=== PATIENT | female | born 1950 | race Two or more races ===

== ENCOUNTER 2018-01-20 13:09 | Emergency (ER) | payer OTHER ==
[2018-01-20] MEDS ORDERED: Morphine 2 MG/2 ML SYR ONE ×2 (16:09→17:40)
--- NOTE | 2018-01-20 16:15 | RAD REPORT ---
EXAM DESCRIPTION: CT - Head Brain Wo Cont - 01/20/2018 4:03 pm CLINICAL HISTORY: Headache COMPARISON: 01/04/2018 TECHNIQUE: All CT scans are performed using dose optimization technique as appropriate and may inclu de automated exposure control or mA/KV adjustment according to patient size. FINDINGS: No intracranial hemorrhage, hydrocephalus or extra-axial fluid collection.Mild generalized brain atrophy noted.No areas of brain edema or evidence of midline shift. The paranasal sinuses and mastoids are clear. The calvarium is intact. IMPRESSION: No acute intracranial abnormality.
--- NOTE | 2018-01-20 18:20 | ER ---
Nurse's Notes [facility] Name: Alberto Botello Age: 67 yrs Sex: Female : 1950 Arrival Date: 01/20/2018 Time: 13:11 Bed 13 Private MD: Alis Jamison H Diagnosis: Headache Presentation: 01/20 13:22 Presenting complaint: Patient states: Headache that radiates into back for 1 week. Seen aj by PCP for same complaint, given "shot that didn't help." Denies numbness or tingling, ambulated to triage with use of cane. Transition of care: patient was not received from another setting of care. Onset of symptoms was January 12, 2018. Initial Sepsis Screen: Does the patient meet any 2 criteria? No. Patient's initial sepsis screen is negative. Does the patient have a suspected source of infection? No. Patient's initial sepsis screen is negative. Care prior to arrival: None. 13:22 Method Of Arrival: Ambulatory aj 13:22 Acuity: ART 3 aj Triage Assessment: 13:26 Headache History: The patient has had previous headaches. General: Appears in no aj apparent distress. uncomfortable, Behavior is calm, cooperative, appropriate for age. Pain: Complains of pain in face, scalp and back. Neuro: Level of Consciousness is awake, alert, obeys commands, Oriented to person, place, time, situation, Appropriate for age Reports headache. Neuro: Pin Game Machine Inspector are equal bilaterally Moves all extremities. Full function Gait is unsteady, Speech is normal, Facial symmetry appears normal. Respiratory: Airway is patent Trachea midline Respiratory effort is even, unlabored, Respiratory pattern is regular, symmetrical. Derm: Skin is intact, is healthy with good turgor, Skin is pink, warm \\T\\ dry. normal. Historical: - Allergies: 13:26 No Known Allergies; aj - Home Meds: 13:26 lisinopril 10 mg Oral tab 1 tab once daily [Active]; metformin 850 mg Oral tab daily aj [Active]; alprazolam 2 mg Oral tab nightly [Active]; morphine 30 mg Oral CM24 1 cap three times a day [Active]; Meclizine Oral [Active]; tizanidine oral oral [Active]; meloxicam oral oral [Active]; - PMHx: 13:26 Chronic pain; Hepatitis; Hypertension; Osteoporosis; Pancreatitis; aj - PSHx: 13:26 None; aj - Immunization history:: Adult Immunizations up to date. - Social history:: Smoking status: Patient/guardian denies using tobacco. Screenin:15 Abuse screen: Denies threats or abuse. Denies injuries from another. Nutritional ph screening: No deficits noted. Tuberculosis screening: No symptoms or risk factors identified. Fall Risk None identified. Assessment: 15:45 General: Appears in no apparent distress. uncomfortable, well groomed, Behavior is ph calm, cooperative, appropriate for age, Denies fever, feeling ill. Pain: Complains of pain in top of head Pain radiates to back. Neuro: Level of Consciousness is awake, alert, obeys commands, Oriented to person, place, time, situation, Reports headache Denies blurred vision dizziness. Cardiovascular: Capillary refill < 3 seconds Patient's skin is warm and dry. Respiratory: Airway is compromised Respiratory effort is even, unlabored. GI: Patient currently denies nausea, vomiting. Derm: Skin is intact, is healthy with good turgor, Skin is pink, warm \\T\\ dry. Musculoskeletal: Circulation, motion, and sensation intact. Range of motion: intact in all extremities. 17:30 Reassessment: Patient appears in no apparent distress at this time. Patient and/or ph family updated on plan of care and expected duration. Pain level reassessed. Patient is alert, oriented x 3, equal unlabored respirations, skin warm/dry/pink. Pt reports that pain has improved to 7/10 (down from 10/10) requesting more pain medication, ERP notified. 18:28 Reassessment: Patient appears in no apparent distress at this time. Patient and/or ph family updated on plan of care and expected duration. Pain level reassessed. Patient is alert, oriented x 3, equal unlabored respirations, skin warm/dry/pink. Pt reports that pain has decreased, d/c home w/ family. Vital Signs: 13:26 BP 165 / 93; Pulse 90; Resp 17; Temp 98.4; Pulse Ox 100% on R/A; Weight 53.52 kg; aj Height 5 ft. 0 in. (152.40 cm); 17:26 BP 132 / 80; Pulse 83; Resp 16; Pulse Ox 100% on R/A; mh5 18:30 BP 127 / 78; Pulse 81; Resp 18; Temp 97.8; Pulse Ox 99% on R/A; ph 13:26 Body Mass Index 23.05 (53.52 kg, 152.40 cm) ED Course: 13:11 Patient arrived in ED. mr 13:12 Alis JamisonDO is Private Physician. mr 13:24 Triage completed. 13:26 Arm band placed on right wrist. Patient placed in waiting room, Patient notified of wait time. 15:03 Macario Guevara, LONG is PHCP. pm1 15:03 Rob Galo MD is Attending Physician. pm1 15:54 CT completed. Patient tolerated procedure well. Patient moved to CT via stretcher. luigi Patient moved back from CT. 16:03 CT Head Brain wo Cont In Process Unspecified. EDMS 16:04 Alia Maldonado RN is Primary Nurse. ph 16:15 Patient has correct armband on for positive identification. Placed in gown. Bed in low ph position. Call light in reach. Side rails up X 1. Pulse ox on. NIBP on. Warm blanket given. 18:31 No provider procedures requiring assistance completed. Patient did not have IV access ph during this emergency room visit. Administered Medications: 16:12 Drug: morphine 2 mg Route: IM; Site: right deltoid; ph 18:34 Follow up: Response: No adverse reaction; Pain is decreased ph 17:40 Drug: morphine 2 mg Route: IM; Site: left deltoid; ph 18:34 Follow up: Response: No adverse reaction; Pain is decreased ph Outcome: 17:59 Discharge ordered by MD. pm1 18:31 Discharged to home ambulatory, with family. ph 18:31 Condition: good 18:31 Condition: good 18:31 Discharge instructions given to patient, family, Instructed on discharge instructions, follow up and referral plans. Demonstrated understanding of instructions, follow-up care. 18:35 Patient left the ED. ph Signatures: Dispatcher [employer] EDMS Ami Hutson, Jazmin Galvez RN mr Alia Maldonado RN RN Macario Guevara, LONG HOME MANAGER pm1 Ba Rivera Maria [facility]
--- NOTE | 2018-01-20 18:20 | EDPHYS ---
Physician Documentation [facility] Name: Alberto Botello Age: 67 yrs Sex: Female : 1950 Arrival Date: 01/20/2018 Time: 13:11 Bed 13 Private MD: Alis Jamison H ED Physician Rob Galo HPI: 01/20 15:57 This 67 yrs old Female presents to ER via Ambulatory with complaints of Headache. pm1 15:57 The patient complains of pain to the top of head. The patient describes the headache as pm1 aching, constant. Onset: The symptoms/episode began/occurred 3 day(s) ago. Associated signs and symptoms: Pertinent negatives: dizziness, fever, nausea, neck stiffness, Photophobia vision changes, vision loss, vomiting, weakness. Severity of symptoms: in the emergency department the pain is unchanged. Headache History: The patient has had previous headaches and this one is similar to previous episodes. The symptoms are alleviated by nothing. the symptoms are aggravated by nothing. The patient has experienced similar episodes in the past, a few times. Seen by pain management physician 2 days ago and given a pain medication shot that has not helped her pain. Historical: - Allergies: 13:26 No Known Allergies; aj - Home Meds: 13:26 lisinopril 10 mg Oral tab 1 tab once daily [Active]; metformin 850 mg Oral tab daily aj [Active]; alprazolam 2 mg Oral tab nightly [Active]; morphine 30 mg Oral CM24 1 cap three times a day [Active]; Meclizine Oral [Active]; tizanidine oral oral [Active]; meloxicam oral oral [Active]; - PMHx: 13:26 Chronic pain; Hepatitis; Hypertension; Osteoporosis; Pancreatitis; aj - PSHx: 13:26 None; aj - Immunization history:: Adult Immunizations up to date. - Social history:: Smoking status: Patient/guardian denies using tobacco. ROS: 16:00 Constitutional: Negative for fever, chills, and weight loss, Eyes: Negative for injury, pm1 pain, redness, and discharge, ENT: Negative for injury, pain, and discharge, Neck: Negative for injury, pain, and swelling, Cardiovascular: Negative for chest pain, palpitations, and edema, Respiratory: Negative for shortness of breath, cough, wheezing, and pleuritic chest pain, Abdomen/GI: Negative for abdominal pain, nausea, vomiting, diarrhea, and constipation, Back: Negative for injury and pain, : Negative for injury, bleeding, discharge, and swelling, MS/Extremity: Negative for injury and deformity, Skin: Negative for injury, rash, and discoloration. 16:00 Neuro: Positive for headache, Negative for seizure activity, speech changes, syncope, near syncope, weakness. Exam: 16:00 Constitutional: This is a well developed, well nourished patient who is awake, alert, pm1 and in no acute distress. Eyes: Pupils equal round and reactive to light, extra-ocular motions intact. Lids and lashes normal. Conjunctiva and sclera are non-icteric and not injected. Cornea within normal limits. Periorbital areas with no swelling, redness, or edema. ENT: Nares patent. No nasal discharge, no septal abnormalities noted. Tympanic membranes are normal and external auditory canals are clear. Oropharynx with no redness, swelling, or masses, exudates, or evidence of obstruction, uvula midline. Mucous membranes moist. Neck: Trachea midline, no thyromegaly or masses palpated, and no cervical lymphadenopathy. Supple, full range of motion without nuchal rigidity, or vertebral point tenderness. No Meningismus. 16:00 Chest/axilla: Normal chest wall appearance and motion. Nontender with no deformity. No lesions are appreciated. Cardiovascular: Regular rate and rhythm with a normal S1 and S2. No gallops, murmurs, or rubs. No pulse deficits. Respiratory: Lungs have equal breath sounds bilaterally, clear to auscultation and percussion. No rales, rhonchi or wheezes noted. No increased work of breathing, no retractions or nasal flaring. Abdomen/GI: Soft, non-tender, with normal bowel sounds. No distension or tympany. No guarding or rebound. No evidence of tenderness throughout. Back: No spinal tenderness. No costovertebral tenderness. Full range of motion. Skin: Warm, dry with normal turgor. Normal color with no rashes, no lesions, and no evidence of cellulitis. MS/ Extremity: Pulses equal, no cyanosis. Neurovascular intact. Full, normal range of motion. 16:00 Head/face: Exam is negative for deformity, Noted is tenderness, of the top of head. 16:00 Neuro: Orientation: is normal, Mentation: is normal, Motor: moves all fours, Sensation: is normal, no obvious gross deficits. Vital Signs: 13:26 BP 165 / 93; Pulse 90; Resp 17; Temp 98.4; Pulse Ox 100% on R/A; Weight 53.52 kg; aj Height 5 ft. 0 in. (152.40 cm); 17:26 BP 132 / 80; Pulse 83; Resp 16; Pulse Ox 100% on R/A; mh5 18:30 BP 127 / 78; Pulse 81; Resp 18; Temp 97.8; Pulse Ox 99% on R/A; ph 13:26 Body Mass Index 23.05 (53.52 kg, 152.40 cm) aj MDM: 15:08 Patient medically screened. [facility] 16:05 Data reviewed: vital signs. Data interpreted: Pulse oximetry: on room air is 100 %. pm1 Interpretation: normal. 17:58 Medication response: Patient resting quietly in bed. Pain improved. pm1 17:59 Counseling: I had a detailed discussion with the patient and/or guardian regarding: the pm1 historical points, exam findings, and any diagnostic results supporting the discharge/admit diagnosis, radiology results, the need for outpatient follow up, to return to the emergency department if symptoms worsen or persist or if there are any questions or concerns that arise at home. 01/20 15:32 Order name: CT Head Brain wo Cont; Complete Time: 16:23 pm1 Administered Medications: 16:12 Drug: morphine 2 mg Route: IM; Site: right deltoid; ph 18:34 Follow up: Response: No adverse reaction; Pain is decreased ph 17:40 Drug: morphine 2 mg Route: IM; Site: left deltoid; ph 18:34 Follow up: Response: No adverse reaction; Pain is decreased ph Disposition: 01/20/18 17:59 Discharged to Home. Impression: Headache. - Condition is Stable. - Discharge Instructions: General Headache Without Cause. - Medication Reconciliation Form, Thank You Letter, Prescription Opioid Use form. - Follow up: Emergency Department; When: As needed; Reason: Worsening of condition. Follow up: Private Physician; When: 2 - 3 days; Reason: Recheck today's complaints, Continuance of care, Re-evaluation by your physician. - Problem is new. - Symptoms have improved. Addendum: 01/23/2018 08:27 Co-signature as Attending Physician, Rob Galo MD I agree with the assessment and c jennings plan of care. Signatures: Dispatcher [employer] EDAmi Childers, RN Rob Ortiz MD MD cha Hall, Patricia, RN RN ph Marinas, Patrick, SUPERVISOR DRAPERY HANGING SUPERVISOR [employer]AP[employer] HANGING pm1 Corrections: (The following items were deleted from the chart) 01/20 18:35 17:59 01/20/2018 17:59 Discharged to Home. Impression: Headache. Condition is Stable. ph Discharge Instructions: General Headache Without Cause. Forms are Medication Reconciliation Form, Thank You Letter, Antibiotic Education, Prescription Opioid Use. Follow up: Emergency Department; When: As needed; Reason: Worsening of condition. Follow up: Private Physician; When: 2 - 3 days; Reason: Recheck today's complaints, Continuance of care, Re-evaluation by your physician. Problem is new. Symptoms have improved. pm1
[2018-01-20 18:54] VITALS: BP 127/78; TEMP 97.8; O2SAT 99
== END 2018-01-20 18:35 | disposition home or self-care (01) ==
LOC: ER 13:09
DX: R51 Headache (principal); I10 Essential (primary) hypertension
CPT/HCPCS: 70450; 96372; 99284; J2270 ×2

== ENCOUNTER 2018-02-06 16:12 | Emergency (ER) | payer OTHER ==
--- OUTSIDE RECORDS SUMMARY | 2018-02-06 16:15 | XMS REPORT | Summary of Care ---
:1950 Author Name BRIE ACUÑA M.D. Address Unavailable Unavailable , Care Team Providers Name Role Phone BRIE ACUÑA M.D. Unavailable Unavailable DAVE ROBERTS DO Unavailable Unavailable Unavailable Unavailable Unavailable Functional Status Name Dates Details Functional status health issues are not documented Status: Name Dates Details Cognitive status health issues are not documented Status: Problems Name Dates Details Acute intractable headache, unspecified headache type (784.0, R51) Status: Active Medication overuse headache (339.3, G44.40) Status: Active History of Chronic midline low back pain without sciatica (724.2, M54.5) Status: Resolved New onset of headaches after age 50 (784.0, R51) Status: Active Medications Name Dates Details Hemocyte Plus 106-1 MG Oral Capsule Refills: 0 Start : 01-Feb-2018 Active Lisinopril 10 MG Oral Tablet TAKE 1 TABLET TWICE DAILY. Quantity: 180 Refills: 1 Start : 01-Feb-2018 Active MetFORMIN HCl - 850 MG Oral Tablet TAKE 0.5 TABLET TWICE DAILY Refills: 0 Start : 01-Feb-2018 Active Vitamin D3 5000 UNIT Oral Capsule TAKE DIRECTED. Refills: 0 Start : 01-Feb-2018 Active ALPRAZolam 2 MG Oral Tablet TAKE 1 TABLET AT BEDTIME. Refills: 0 Start : 01-Feb-2018 Active Omeprazole 40 MG Oral Capsule Delayed Release TAKE 1 CAPSULE DAILY Refills: 0 Start : 01-Feb-2018 Active Morphine Sulfate 30 MG Oral Tablet TAKE 1.5 TABLET TWICE DAILY Refills: 0 Start : 01-Feb-2018 Active MethylPREDNISolone 4 MG Oral Tablet Therapy Pack Medrol dose lior (24 mg with tapering dose to 4 mg over 6 days) MDD:24mg Quantity: 21 Refills: 0 BRIE ACUÑA M.D. Start : 01-Feb-2018 Active 21 Tablet Pack Allergies and Adverse Reactions Name Dates Details No Known Drug Allergies (Allergy) Status: Active Past Medical History Name Dates Details History of Chronic midline low back pain without sciatica (724.2, M54.5) Status: Resolved Procedures Procedure Dates Details MRI Brain w/wo contrast 60666 Date: 01-Feb-2018 History of Gallbladder surgery Completed Immunization Name Dates Details Immunizations not documented Family History Name Dates Details Family history of lung cancer (V16.1, Z80.1) Status: Active Social History Name Dates Details - Status: Name Dates Details Never smoker Vital Signs Date Test Result Details [id number] BP Systolic 131 mm[Hg] Status: Comments: Location: RUE; Position: Sitting BP Diastolic 78 mm[Hg] Status: Comments: Location: RUE; Position: Sitting Height 60 in Status: Weight 117 lb Status: Body Mass Index Calculated 22.85 kg/m2 Status: Body Surface Area Calculated 1.49 m2 Status: Heart Rate 73 /min Status: Comments: Location: R Brachial Artery; Results Date Description Value Details Results not documented Plan of Care Name Dates Details Planned Observations Planned Goals not documented Planned Encounters Pain Management Referral Interventions Provided Medication ChangesMethylPREDNISolone 4 MG Oral Tablet Therapy Pack - StartLabs/ Procedures/ImagingMRI Brain w/wo contrast 40711; To Be Done: 01 Feb 2018Plan1. MRI brain wwo contrast to rule out structural cause of headache2. Trial medrol dose lior for medication overuse headache3. Decrease morphine to minimal dose 30 mg4. Referral to pain clinic for chronic back painA total of 60 minutes were spent [id number] with the patient during this encounter and over half of that time was spent on counseling and coordination of care. We discussed her neurological symptoms,potential causes, recommended workup, and treatment plan.Discussion/SummaryMs. Luna is a 67 year old woman with history pertinent for chronic back pain, who presents with new headache x 2 months. She endorses two falls in the past few months, but minimal trauma to her head. She had two head CTs during this time which have do not show any hemorrhage, edema, or obvious structural abnormalities. She also describes radiating pain throughout her extremities when her headaches are back associated with some numbness and tingling. Due to onset of severe headaches at age >50, I would recommend further imaging to rule out any structural causes of her headache. Of note, she has been on high doses of morphine for a few years now due to her chronic back pain. A month or two beforethe onset of her headache, she cut down her morphine use significantly. She started to develop headaches after this which were initially more tolerable, and as she has increased the dose of her morphine again, as well as adding on tylenol, her headaches have worsened. This makes medication overuse headache a possibility as well. Instructions Name Dates Details Instructions not documented Encounters Appointment; BRIE ACUÑA M.D. On: 01-Feb-2018 8:00 Encounter Diagnosis: Problem not documented
[2018-02-06] MEDS ORDERED: DIPHENHYDRAMINE 50 MG/ML VIAL ONE (16:45)
[2018-02-06] MEDS ORDERED: METOCLOPRAMIDE 10 MG/2mL INJ ONE (16:45)
[2018-02-06] MEDS ORDERED: KETOROLAC 30 MG/ML INJ ONE ×2 (16:45→18:21)
--- NOTE | 2018-02-06 18:30 | ER ---
Nurse's Notes [facility] Name: Alberto Botello Age: 67 yrs Sex: Female : 1950 Arrival Date: 02/06/2018 Time: 16:15 Bed 25 Private MD: Alis Jamison H Diagnosis: Headache Presentation: 02/06 16:17 Presenting complaint: Child states: " She has been having a having a headache every day ph and the medicine is not working, I think she needs an MRI. We tried going to Dr Mccoy but they can't see her until March 08." Pt reports pain in L side of head and body, denies dizziness or nausea. Transition of care: patient was not received from another setting of care. Onset of symptoms was February 06, 2018. Risk Assessment: Do you want to hurt yourself or someone else? Patient reports no desire to harm self or others. Initial Sepsis Screen: Does the patient meet any 2 criteria? No. Patient's initial sepsis screen is negative. Does the patient have a suspected source of infection? No. Patient's initial sepsis screen is negative. Care prior to arrival: None. 16:17 Method Of Arrival: Ambulatory ph 16:17 Acuity: ART 3 ph Triage Assessment: 16:30 General: Appears in no apparent distress. uncomfortable, well groomed, well developed, kr2 well nourished, Behavior is calm, cooperative, appropriate for age. Pain: Pain began gradually, Also complains of sleeplessness. Pain: Complains of pain in forehead Pain does not radiate. Pain currently is 10 out of 10 on a pain scale. Quality of pain is described as aching. 16:30 Headache History: The patient has had previous headaches and this one is similar to kr2 previous episodes. Historical: - Allergies: 16:22 No Known Allergies; ph - PMHx: 16:22 Chronic pain; Hepatitis; Hypertension; Osteoporosis; Pancreatitis; ph - PSHx: 16:22 None; ph - Immunization history:: Adult Immunizations unknown. - Social history:: The patient lives at home, Smoking status: Patient/guardian denies using tobacco. - Ebola Screening: : No symptoms or risks identified at this time. Screenin:00 Abuse screen: Denies threats or abuse. Denies injuries from another. Nutritional kr2 screening: No deficits noted. Tuberculosis screening: No symptoms or risk factors identified. Fall Risk IV access (20 points). Assessment: 16:30 General: Appears in no apparent distress. uncomfortable, well groomed, well developed, kr2 well nourished, Behavior is cooperative, restless. Pain: Complains of pain in forehead Pain currently is 10 out of 10 on a pain scale. Quality of pain is described as aching, Is continuous, Alleviated by medications. Neuro: Level of Consciousness is awake, alert, obeys commands, Oriented to person, place, time, situation, Appropriate for age Circulation Representative are equal bilaterally Moves all extremities. Full function Gait is steady, Speech is normal, Facial symmetry appears normal, Pupils are PERRLA, Intact. Cardiovascular: Capillary refill < 3 seconds in bilateral fingers. Respiratory: Airway is patent Respiratory effort is even, unlabored, Respiratory pattern is regular, symmetrical. EENT: Nares are clear bilaterally Oral mucosa is moist. Derm: Skin is intact, Skin is pink, warm \\T\\ dry. 17:30 Reassessment: Patient appears in no apparent distress at this time. Patient and/or kr2 family updated on plan of care and expected duration. Pain level reassessed. Patient is alert, oriented x 3, equal unlabored respirations, skin warm/dry/pink. Patient states feeling better. Patient states symptoms have improved. 18:30 Reassessment: Patient appears in no apparent distress at this time. Patient and/or kr2 family updated on plan of care and expected duration. Pain level reassessed. Patient is alert, oriented x 3, equal unlabored respirations, skin warm/dry/pink. Patient states feeling better. Vital Signs: 16:21 BP 154 / 86; Pulse 91; Resp 18; Temp 97.8; Pulse Ox 100% on R/A; ph 19:04 BP 144 / 82; Pulse 90; Resp 17; Pulse Ox 100% ; kr2 ED Course: 16:15 Patient arrived in ED. mr 16:15 Alis Jamison DO is Private Physician. mr 16:21 Triage completed. ph 16:22 Arm band placed on. ph 16:26 Heidi Page RN is Primary Nurse. kr2 16:27 Tadeo Fatima MD is Attending Physician. gs 16:30 Patient has correct armband on for positive identification. Bed in low position. Call kr2 light in reach. Side rails up X 1. Adult w/ patient. Pulse ox on. NIBP on. Door closed. Lights dimmed. Warm blanket given. Head of bed elevated. 16:45 Missed attempt(s): 24 gauge in right forearm. Bleeding controlled, band aid applied, kr2 catheter tip intact. 16:55 Inserted saline lock: 24 gauge in left forearm, using aseptic technique. kr2 18:29 Alis Jamison DO is Referral Physician. 19:01 No provider procedures requiring assistance completed. IV discontinued, intact, kr2 bleeding controlled, No redness/swelling at site. Pressure dressing applied. Administered Medications: 16:59 Drug: Reglan 10 mg Route: IVP; Site: left forearm; kr2 17:15 Follow up: Response: No adverse reaction kr2 16:59 Drug: Benadryl 25 mg Route: IVP; Site: left forearm; kr2 17:15 Follow up: Response: No adverse reaction kr2 16:59 Drug: TORadol 15 mg Route: IVP; Site: left forearm; kr2 17:15 Follow up: Response: No adverse reaction; Pain is decreased kr2 18:23 Drug: TORadol 15 mg Route: IVP; Site: left forearm; kr2 19:05 Follow up: Response: No adverse reaction; Pain is decreased kr2 Outcome: 18:29 Discharge ordered by . 19:03 Discharged to home via wheelchair, with family. kr2 19:03 Condition: improved 19:03 Discharge instructions given to patient, family, Instructed on discharge instructions, follow up and referral plans. Demonstrated understanding of instructions, follow-up care. 19:06 Patient left the ED. kr2 Signatures: Jazmin Cortés Patricia RN RN Tadeo Fatima MD MD Heidi Page RN RN kr2 Corrections: (The following items were deleted from the chart) 19:05 19:04 Response: No adverse reaction kr2 kr2
--- NOTE | 2018-02-06 18:30 | EDPHYS ---
Physician Documentation [facility] Name: Alberto Botello Age: 67 yrs Sex: Female : 1950 Arrival Date: 02/06/2018 Time: 16:15 Bed 25 Private MD: Alis Jamison H ED Physician Tadeo Fatima HPI: 02/06 18:25 This 67 yrs old Female presents to ER via Ambulatory with complaints of Headache. gs 18:25 The patient complains of pain to the forehead and left religion. The patient describes gs the headache as throbbing. Onset: The symptoms/episode began/occurred 1 month(s) ago, SAYS HAS EVERYDAY, SEEN BY ED, NEW NEUROLOGIST PT WITH CHRONIC PAIN SYNDROME. Severity of symptoms: At its worst the pain was severe, in the emergency department the pain is unchanged. Headache History: The patient has had previous headaches and this one is similar to previous episodes. The patient has experienced similar episodes in the past, chronically. Historical: - Allergies: 16:22 No Known Allergies; ph - PMHx: 16:22 Chronic pain; Hepatitis; Hypertension; Osteoporosis; Pancreatitis; ph - PSHx: 16:22 None; ph - Immunization history:: Adult Immunizations unknown. - Social history:: The patient lives at home, Smoking status: Patient/guardian denies using tobacco. - Ebola Screening: : No symptoms or risks identified at this time. ROS: 18:25 All other systems are negative. gs Exam: 18:25 Head/Face: Normocephalic, atraumatic. Eyes: Pupils equal round and reactive to light, gs extra-ocular motions intact. Lids and lashes normal. Conjunctiva and sclera are non-icteric and not injected. Cornea within normal limits. Periorbital areas with no swelling, redness, or edema. ENT: Nares patent. No nasal discharge, no septal abnormalities noted. Tympanic membranes are normal and external auditory canals are clear. Oropharynx with no redness, swelling, or masses, exudates, or evidence of obstruction, uvula midline. Mucous membranes moist. Neck: Trachea midline, no thyromegaly or masses palpated, and no cervical lymphadenopathy. Supple, full range of motion without nuchal rigidity, or vertebral point tenderness. No Meningismus. Chest/axilla: Normal chest wall appearance and motion. Nontender with no deformity. No lesions are appreciated. Cardiovascular: Regular rate and rhythm with a normal S1 and S2. No gallops, murmurs, or rubs. Normal PMI, no JVD. No pulse deficits. Respiratory: Lungs have equal breath sounds bilaterally, clear to auscultation and percussion. No rales, rhonchi or wheezes noted. No increased work of breathing, no retractions or nasal flaring. Abdomen/GI: Soft, non-tender, with normal bowel sounds. No distension or tympany. No guarding or rebound. No evidence of tenderness throughout. Back: No spinal tenderness. No costovertebral tenderness. Full range of motion. Skin: Warm, dry with normal turgor. Normal color with no rashes, no lesions, and no evidence of cellulitis. MS/ Extremity: Pulses equal, no cyanosis. Neurovascular intact. Full, normal range of motion. Neuro: Awake and alert, GCS 15, oriented to person, place, time, and situation. Cranial nerves II-XII grossly intact. Motor strength 5/5 in all extremities. Sensory grossly intact. Cerebellar exam normal. Normal gait. 18:25 Constitutional: The patient appears alert, awake. Vital Signs: 16:21 BP 154 / 86; Pulse 91; Resp 18; Temp 97.8; Pulse Ox 100% on R/A; ph 19:04 BP 144 / 82; Pulse 90; Resp 17; Pulse Ox 100% ; kr2 MDM: 16:30 Patient medically screened. sarah 18:25 Differential diagnosis: tension headache, vasomotor headache. Data reviewed: vital gs signs, nurses notes. Response to treatment: the patient's symptoms have mildly improved after treatment, and as a result, I will discharge patient. ED course: PT HAS HAD SAME HEADACHE PRETTY MUCH FOR OVER A MONTH HAS SEEN MULTIPLE PROVIDERS AND CURRENTLY OTHER THAN CHRONIC PAIN SYNDROME HAVE NO EXPLANATION FOR ETIOLOGY OF HEADACHE RECOMMENDED SEEING PAIN MANAGMENT AND HER NEUROLOGIST FOR NEXT STEPS FOR PAIN TREATMENT. Administered Medications: 16:59 Drug: Reglan 10 mg Route: IVP; Site: left forearm; kr2 17:15 Follow up: Response: No adverse reaction kr2 16:59 Drug: Benadryl 25 mg Route: IVP; Site: left forearm; kr2 17:15 Follow up: Response: No adverse reaction kr2 16:59 Drug: TORadol 15 mg Route: IVP; Site: left forearm; kr2 17:15 Follow up: Response: No adverse reaction; Pain is decreased kr2 18:23 Drug: TORadol 15 mg Route: IVP; Site: left forearm; kr2 19:05 Follow up: Response: No adverse reaction; Pain is decreased kr2 Disposition: 02/06/18 18:29 Discharged to Home. Impression: Headache. - Condition is Stable. - Discharge Instructions: General Headache Without Cause. - Medication Reconciliation Form, Thank You Letter, Antibiotic Education, Prescription Opioid Use form. - Follow up: Yaquelin, DO Alis; When: 2 - 3 days; Reason: Re-evaluation by your physician. Signatures: Rob Galo MD MD cha Hall, Patricia RN RN Tadeo Fatima MD MD gs Reaves, Karey, RN RN kr2 Corrections: (The following items were deleted from the chart) 19:06 18:29 02/06/2018 18:29 Discharged to Home. Impression: Headache. Condition is Stable. kr2 Forms are Medication Reconciliation Form, Thank You Letter, Antibiotic Education, Prescription Opioid Use. Follow up: Alis Jamison; When: 2 - 3 days; Reason: Re-evaluation by your physician.
[2018-02-06 19:10] VITALS: TEMP 97.8; O2SAT 100
[2018-02-06 19:11] VITALS: BP 144/82
== END 2018-02-06 19:06 | disposition home or self-care (01) ==
LOC: ER 16:12
DX: R51 Headache (principal); I10 Essential (primary) hypertension; G89.4 Chronic pain syndrome
CPT/HCPCS: 96374; 96375; 99284; J2765

== ENCOUNTER 2018-05-01 23:54 | Emergency (ER) | payer OTHER ==
--- OUTSIDE RECORDS SUMMARY | 2018-05-01 23:57 | XMS REPORT | Summary of Care ---
:1950 Author Organization [facility] [place] Address [address] [address]- Encounter HQ Encntr_josé luis(FIN) [id number] Date(s): 02/08/18 - 02/08/18 [facility] [place] [address] [id number]- [phone] Discharge Disposition: Home or Self Care Attending Physician: Hollie Osorio MD Vital Signs No data available for this section Problem List Condition Effective Dates Status Health Status Informant Abdominal pain(Confirmed) Active Anxiety(Confirmed) Active Chronic hepatitis C(Confirmed) Active Depression(Confirmed) Active Gallstones(Confirmed) Active HBP - High blood pressure(Confirmed) Active Allergies, Adverse Reactions, Alerts Substance Reaction Severity Status NKDA Active Medications No data available for this section Results No data available for this section Immunizations No data available for this section Procedures Procedure Date Related Diagnosis Body Site Status Biopsy of liver Completed Cataract surgery Completed Colonoscopy Completed Endoscopy Completed Hysterectomy Completed MRI of abdomen Completed MRI of kidneys Completed Ultrasound Completed Social History Social History Type Response Smoking Status Never smoker; Exposure to Tobacco Smoke None; Cigarette Smoking Last 365 Days No; Reg Smoking Cessation Counseling No entered on: 12/16/15 Assessment and Plan No data available for this section
--- OUTSIDE RECORDS SUMMARY | 2018-05-01 23:57 | XMS REPORT | Summary of Care ---
:1950 Author Organization [facility] Address [address] [address]- Encounter HQ Ervin(FIN) [id number] Date(s): 12/16/15 - 12/16/15 [facility] [address] [facility] [address] [phone] Discharge Disposition: Home Attending Physician: Julien Parker MD Referring Physician: Julien Parker MD Vital Signs Most recent to oldest [Reference Range]: 1 Height 152.4 cm (12/16/15 3:34 PM) Blood Pressure [90-140/60-90 mmHg] 121/75 mmHg (12/16/15 3:34 PM) Respiratory Rate [14-20 BRMIN] 92 BRMIN *HI* (12/16/15 3:34 PM) Weight 57.273 kg (12/16/15 3:34 PM) Body Mass Index 24.66 m2 (12/16/15 3:34 PM) Problem List Condition Effective Dates Status Health Status Informant Abdominal pain(Confirmed) Active Anxiety(Confirmed) Active Chronic hepatitis C(Confirmed) Active Depression(Confirmed) Active Gallstones(Confirmed) Active HBP - High blood pressure(Confirmed) Active Allergies, Adverse Reactions, Alerts Substance Reaction Severity Status NKDA Active Medications Linzess 145 mcg oral capsule 145 microgram=1 cap, PO, Daily, 30 minutes prior to the first meal of the day, # 30 cap, 0 Refill(s) Start Date: 12/16/15 Status: Ordered Results No data available for this section Immunizations No data available for this section Procedures Procedure Date Related Diagnosis Body Site Biopsy of liver Cataract surgery Colonoscopy Endoscopy Hysterectomy MRI of abdomen MRI of kidneys Ultrasound Social History Social History Type Response Smoking Status Never smoker; Exposure to Tobacco Smoke None; Cigarette Smoking Last 365 Days No; Reg Smoking Cessation Counseling No Assessment and Plan No data available for this section
--- OUTSIDE RECORDS SUMMARY | 2018-05-01 23:57 | XMS REPORT | Summary of Care ---
:1950 Author Organization [facility] Address [address] [place], [place] [address]- Encounter HQ Encntr_josé luis(FIN) [id number] Date(s): 03/23/16 - 03/23/16 [facility] [place] [facility] [address] [place], [place] [address]- [place] Discharge Disposition: Home Attending Physician: Julien Parker MD Admitting Physician: Julien Parker MD Vital Signs No data available for [...]
--- OUTSIDE RECORDS SUMMARY | 2018-05-01 23:57 | XMS REPORT | Summary of Care ---
:1950 Author Organization [facility] Address [address] [address]- Encounter HQ Ervin(LOVELY) [id number] Date(s): 11/24/15 - 11/24/15 [facility] [address] [facility] [address] [phone] Discharge Disposition: Home Attending Physician: Aung Bear MD Referring Physician: Aung Bear MD Vital Signs Most recent to oldest [Reference Range]: 1 Height 180.34 cm (11/24/15 1:19 PM) Blood Pressure [90-140/60-90 mmHg] 134/87 mmHg (11/24/15 1:19 PM) Peripheral Pulse Rate [60-100 bpm] 84 bpm (11/24/15 1:19 PM) Weight 57.273 kg (11/24/15 1:19 PM) Body Mass Index 17.61 m2 (11/24/15 1:19 PM) Problem List Condition Effective Dates Status Health Status Informant Anxiety(Confirmed) Active Chronic hepatitis C(Confirmed) Active Depression(Confirmed) Active Gallstones(Confirmed) Active HBP - High blood pressure(Confirmed) Active Allergies, Adverse Reactions, Alerts Substance Reaction Severity Status NKDA Active Medications ALPRAZOLam 2 mg oral tablet 2 mg=1 tab, PO, Daily, PRN Anxiety, 0 Refill(s) Start Date: 11/24/15 Stop Date: 12/08/15 Status: OrderedAmitiza 8 mcg oral capsule 8 microgram=1 cap, PO, BID, # 60 tab, 0 Refill(s) Start Date: 11/24/15 Status: OrderedDexilant 60 mg oral delayed release capsule 60 mg=1 cap, PO, Daily, # 30 day, 0 Refill(s) Start Date: 11/24/15 Status: OrderedLinzess 145 mcg oral capsule 145 microgram=1 cap, PO, Daily, 30 minutes prior to the first meal of the day, # 30 cap, 0 Refill(s) Start Date: 11/24/15 Status: Orderedlisinopril 5 mg oral tablet 5 mg=1 tab, PO, Daily, # 30 tab, 0 Refill(s) Start Date: 11/24/15 Status: Orderedmetoclopramide 5 mg oral tablet 5 mg=1 tab, PO, BID, 0 Refill(s) Start Date: 11/24/15 Status: Orderedmorphine 30 mg oral tablet 30 mg=1 tab, PO, Q4H, PRN Pain, 0 Refill(s) Start Date: 11/24/15 Stop Date: 12/01/15 Status: Orderedoxybutynin 15 mg oral tablet, extended release 15 mg=1 tab, PO, Daily, # 30 tab, 0 Refill(s) Start Date: 11/24/15 Status: Orderedranitidine 300 mg oral tablet 300 mg=1 tab, PO, Bedtime, # 30 tab, 0 Refill(s) Start Date: 11/24/15 Stop Date: 12/24/15 Status: OrderedTylenol with Codeine #3 oral tablet 1 - 2 tablets, PO, Daily, PRN Pain, # 60 tab, 0 Refill(s) Start Date: 11/24/15 Stop Date: 12/24/15 Status: Ordered Results No data available for this section Immunizations No data available for this section Procedures Procedure Date Related Diagnosis Body Site Biopsy of liver Cataract surgery Colonoscopy Endoscopy Hysterectomy Ultrasound Social History Social History Type Response Smoking Status Never smoker; Exposure to Tobacco Smoke None; Cigarette Smoking Last 365 Days No; Reg Smoking Cessation Counseling No Assessment and Plan No data available for this section
--- OUTSIDE RECORDS SUMMARY | 2018-05-01 23:57 | XMS REPORT | Summary of Care ---
:1950 Author Organization [facility] Address [address] [place], [place] [address]- Encounter HQ Encntr_josé luis(FIN) [id number] Date(s): 03/23/16 - 03/23/16 [facility] [address] [place] [address]- [place] Discharge Disposition: Home Attending Physician: Julien [...]
--- OUTSIDE RECORDS SUMMARY | 2018-05-01 23:57 | XMS REPORT | Continuity of Care Document ---
:1950 Author Organization Interface Problems Problem Status Onset Classification Date Comments Source Date Reported R51 - HEADACHE Active 02/04/20 [facility] [place] R51.- HEADACHE Active 02/04/20 [facility] [place] MILD STEATOSIS Active 03/23/[address] BDDC - F/U Active 12/08/[address] R10.9 - Active 12/04/19 [facility] UNSPECIFIED [address] [place] [address] ABDOMINAL PAIN FOLLOW UP Active 11/28/[address] STOMACH PAIN Active 11/14/19 [facility] SELF [address] [place] [address] REFERRAL Anxiety Active Problem 03/26/2016 [facility] [place] Chronic Active Problem 03/26/2016 [facility] hepatitis C [place] Depression Active Problem 03/26/2016 [facility] [place] Gallstones Active Problem 03/26/2016 [facility] [place] HBP - High Active Problem 03/26/2016 [facility] blood pressure [place] Abdominal pain Active Problem 02/11/2018 [facility], [facility] [place] Anxiety Active Problem 02/11/2018 [facility] [place], [facility] [place] Chronic Active Problem 02/11/2018 [facility] hepatitis C [place], [facility] [place] Depression Active Problem 02/11/2018 [facility] [place], [facility] [place] Gallstones Active Problem 02/11/2018 [facility] [place], [facility] [place] HBP - High Active Problem 02/11/2018 [facility] blood pressure [place], [facility] [place] MEDICAL Active [facility] SERVICES NOT Medical Center AVAILABLE IN HOME ALCOHOLIC FATTY Active [facility] LIVER Medical Center OTHER Active [facility] CONGENITAL DEFORMITIES FATTY (CHANGE Active [facility] [place] [facility]) LIVER, NOT Medical Center ELSEWHERE C Medications Medication Details Route Status Patient Ordering Order Source Instructions Provider Date linaclotide 0.145 145 Active [place] [facility] Oral Capsule microgram= 016 Medical [Linzess] 1 cap, PO, Center Daily, 30 minutes prior to the first meal of the day, # 30 cap, 0 Refill(s) oxybutynin 15 mg 15 mg=1 Active [facility] oral tablet, tab, PO, 016 Medical extended release Daily, # Center 30 tab, 0 Refill(s) lubiprostone 0.008 8 Active [facility] MG Oral Capsule microgram= 016 Medical [Amitiza] 1 cap, PO, Center BID, # 60 tab, 0 Refill(s) linaclotide 0.145 145 Active [facility] MG Oral Capsule microgram= 016 Medical [Linzess] 1 cap, PO, Center Daily, 30 minutes prior to the first meal of the day, # 30 cap, 0 Refill(s) Acetaminophen 300 1 - 2 Active [place] [facility] / Codeine tablets, 016 Medical Phosphate 30 MG PO, Daily, Center Oral Tablet PRN Pain, [Tylenol with # 60 tab, Codeine #3] 0 Refill(s) ranitidine 300 mg 300 mg=1 Active [facility] oral tablet tab, PO, 016 Medical Bedtime, # Center 30 tab, 0 Refill(s) lisinopril 5 mg 5 mg=1 Active [facility] oral tablet tab, PO, 016 Medical Daily, # Center 30 tab, 0 Refill(s) Metoclopramide 5 5 mg=1 Active [facility] MG Oral Tablet tab, PO, 016 Medical BID, 0 Center Refill(s) Alprazolam 2 MG 2 mg=1 Active [facility] Oral Tablet tab, PO, 016 Medical Daily, PRN Center Anxiety, 0 Refill(s) dexlansoprazole 60 60 mg=1 Active [place] [facility] Enteric Coated cap, PO, 016 Medical Capsule [Dexilant] Daily, # Center 30 day, 0 Refill(s) morphine 30 mg 30 mg=1 Active [facility] oral tablet tab, PO, 016 Medical Q4H, PRN Center Pain, 0 Refill(s) Allergies, Adverse Reactions, Alerts Substance Category Reaction Severity Reaction Status Date Comments Source type Reported NKDA Assertion Drug Active [facility] allergy [place] Immunizations Immunization Date Given Site Status Last Updated Comments Source Results Order Results Value Reference Date Interpretation Comments Source Name Range Brain wo Brain wo Patient Name: RIYA LUNA 02/08 - [facility] contrast contrast /2017 - [place] MRI MRI : 1950. Age: 67 years. Gender: Female. MR: [id number]. Location: [facility]. Provider: Hollie Osorio MD. Read by: Finesse Dias MD Dictated Date/time: 02/08/18 17:31 Electronically Signed by: Finesse Dias MD 02/08/18 17:40 FINAL REPORT EXAM: Brain wo contrast MRI. PROVIDED CLINICAL HISTORY: Headaches for 2 months with pain radiating down the entire right side of the body. R51 Headache TECHNIQUE: Multi-sequence, multi-planar MR of the brain without gadolinium contrast. COMPARISON: No relevant prior exams available at the time of interpretation. FINDINGS: BRAIN: -- Mild confluent abnormally increased T2 and FLAIR signal throughout the supratentorial periventricular deep white matter bilaterally, non-specific but most commonly due to chronic small vessel ischemic disease. -- No areas of abnormally-restricted diffusion in a pattern suggestive of acute or early subacute ischemia. No intracranial hemorrhage. No other fluid collection. No intracranial mass. No cerebellar tonsillar ectopia. Age-consistent brain parenchymal volume. VENTRICLES / CISTERNS / SHIFT: No hydrocephalus. No significant effacement of the basal cisterns or foramen magnum. No significant midline shift. VESSELS: No loss of flow voids within the major intracranial vessels or dural sinuses. Vessel and dural sinus patency are not adequately assessed without dedicated angiography or venography. BONES / SCALP: No acute fracture. No significant systemic marrow signal abnormality. No aggressive bony lesions. No significant extracranial soft tissue abnormality. IMAGED SINUSES / MASTOIDS: No significant sinus mucosal thickening. No significant paranasal sinus fluid. No significant mastoid signal abnormality. IMPRESSION: No acute intracranial abnormality. Mild chronic microangiopathic ischemic gliosis. SL: [id number] Abdomen Abdomen PROCEDURE: MAGNETIC RESONANCE CHOLANGIOPANCREATOGRAPHY - [facility] wo wo /2015 - [place] contrast contrast MRI MRI CLINICAL INDICATION: R10.9 Unspecified abdominal pain. B19.20 Unspecified viral hepatitis C without hepatic coma. Read by: Maximilian Clifton MD Dictated Date/time: 12/12/15 09:24 Electronically Signed by: Maximilian Clifton MD 12/12/15 09:36 FINAL REPORT COMPARISON: Magnetic resonance imaging of the abdomen 12/11/2015. Abdomen and pelvis CT 07/06/2012. TECHNIQUE: Magnetic resonance cholangiopancreatography is performed with unenhanced coronal T2 and axial T2 weighted MR images of the abdomen. Thick slab MRCP images and maximum intensity projection images are also obtained. Please note that lack of intravenous contrast limits evaluation of the organs and vasculature. FINDINGS: The gallbladder is surgically absent. The common bile duct is dilated measuring a maximal diameter of approximately 1.1 cm tapering abruptly in the pancreatic head. There is no demonstrable ob structing mass or stone. There is no pancreatic ductal dilatation. Additional findings are described in the report for the magnetic resonance imaging of the abdomen performed the same day. IMPRESSION: 1. Post cholecystectomy. 2. Extrahepatic biliary dilatation. 3. No demonstrable choledocholithiasis. SL: 15 Abdomen Abdomen PROCEDURE: MAGNETIC RESONANCE IMAGING OF THE ABDOMEN - WILLD w/wo w/wo - [place] contrast contrast MRI MRI REASON FOR EXAM: R10.9 Unspecified abdominal pain. B19.20 Unspecified viral hepatitis C without hepatic coma. Read by: Maximilian Clifton MD Dictated Date/time: 12/12/15 09:39 Electronically Signed by: Maximilian Clifton MD 12/12/15 11:06 FINAL REPORT COMPARISON: MRCP 12/11/2015. Abdomen and pelvis CT 07/06/2012. TECHNIQUE: Unenhanced axial and coronal MR images of the abdomen were performed. Postcontrast axial images of the abdomen were performed in a dynamic fashion. Intravenous contrast: 12 cc of Omniscan. FINDINGS: There is patient motion/poor breath holding on the postcontrast sequences. The gallbladder is surgically absent. The common bile duct is dilated measuring a maximal diameter of approximately 1 .1 cm tapering abruptly in the pancreatic head. There is no demonstrable obstructing mass or stone. (The common bile duct measured approximately 1 cm on the comparison CT examination with pneumobilia and a biliary stent.) The liver is unremarkable. There is no demonstrable liver lesion. The liver contour is smooth. Flow is demonstrated in the hepatic and portal veins. The maximal craniocaudad dimension of the liver measures approximately 13 cm. The pancreas, spleen, adrenal glands and kidneys are unremarkable. There is no pancreatic ductal dilatation or hydronephrosis. The maximal length of the spleen measures approximately 8 cm. There is a nonobstructive bowel gas pattern. There is a small hiatal hernia. There is no ascites or pleural effusion. There is mild elevation of the right diaphragm. The caliber of the abdominal aorta i s within normal limits. There is no demonstrable pathologic retroperitoneal lymphadenopathy. There are postsurgical changes in the mid anterior subcutaneous soft tissues. There are degenerative changes of the spine. There is mild compression deformity of a lumbar vertebral body with postsurgica l changes of a vertebroplasty, new from the comparison CT examination. IMPRESSION: 1. Post cholecystectomy. 2. Extrahepatic biliary dilatation. 3. No demonstrable choledocholithiasis. 4. Unremarkable magnetic resonance imaging of the liver. 5. Small hiatal hernia. 6. Osseous findings as described above. SL: 15 Vital Signs Vital Sign Value Date Comments Source Systolic (mm Hg) 121 12/16/2015 [facility] Diastolic (mm Hg) 75 12/16/2015 [facility] Weight 57.273 12/16/2015 [facility] Height 152.4 cm 12/16/2015 [facility] Respitory Rate 92 12/16/2015 [facility] BMI Calculated 24.66 12/16/2015 [facility] BMI Calculated 24.46 12/02/2015 [facility] Weight 56.818 12/02/2015 [facility] Height 152.4 cm 12/02/2015 [facility] Systolic (mm Hg) 125 12/02/2015 [facility] Diastolic (mm Hg) 79 12/02/2015 [facility] Respitory Rate 86 12/02/2015 [facility] Systolic (mm Hg) 134 11/24/2015 [facility] Diastolic (mm Hg) 87 11/24/2015 [facility] Height 180.34 cm 11/24/2015 [facility] Heart Rate 84 11/24/2015 [facility] BMI Calculated 17.61 11/24/2015 [facility] Weight 57.273 11/24/2015 [facility] Encounters Location Location Encounter Encounter Reason Attending ADM DC Status Source Details Type Number For Provider Date Date Visit [facility] [id number] [place] 11/23 11/24 [facility] Outpatient [id number] [place] 12/01 12/02 [facility] [id number] [place] 12/10 12/11 [facility] [place] [facility] Outpatient [id number] [place] 12/15 12/16 [facility] [id number] [place] 03/23 03/24 [facility] Outpatient [id number] [place] 03/23 03/24 [facility] [id number] [place] 02/08 02/09 [facility] [place] Procedures Procedure Code Date Perfomer Comments Source Biopsy of liver [id number] [facility] [place] Cataract surgery [id number] [facility] [place] Colonoscopy [id number] [facility] [place] Endoscopy [id number] [facility] [place] Hysterectomy [id number] [facility] [place] Ultrasound [id number] [facility] [place] Biopsy [facility] liver [id number] [facility] Cataract surgery [id number] [facility] Colonoscopy [id number] [facility] Endoscopy [id number] [facility] Hysterectomy [id number] [facility] Ultrasound [id number] [facility] MRI of abdomen [id number] [facility] MRI of kidneys [id number] [facility] Biopsy of liver [id number] [facility] [place] Cataract surgery [id number] [facility] [place] Colonoscopy [id number] [facility] [place] Endoscopy [id number] [facility] [place] Hysterectomy [id number] [facility] [place] MRI of abdomen [id number] [facility] [place] MRI of kidneys [id number] [facility] [place] Ultrasound [id number] [facility] [place]
--- OUTSIDE RECORDS SUMMARY | 2018-05-01 23:57 | XMS REPORT | Summary of Care ---
:1950 Author Organization [facility] Outpatient Imaging [place] Address [facility] [place], [place] [address]- Encounter HQ Encntr_alias(FIN) [id number] Date(s): 12/11/15 - 12/11/15 [facility] Outpatient Imaging [address], [address] [place] [address]- [phone] Discharge Disposition: Home Attending Physician: Aung Bear MD Referring Physician: Humera Faria HAT FORMER Vital Signs No data available for this [...]
--- OUTSIDE RECORDS SUMMARY | 2018-05-01 23:57 | XMS REPORT | Summary of Care ---
:1950 Author Organization [facility] Address [address] [address]- Encounter HQ Melissa_josé luis(FIN) [id number] Date(s): 12/02/15 - 12/02/15 [facility] [address] [facility] [address] [phone] Discharge Disposition: Home Attending Physician: Aung Bear MD Referring Physician: Aung Bear MD Vital Signs Most recent to oldest [Reference Range]: 1 Height 152.4 cm (12/02/15 2:50 PM) Blood Pressure [90-140/60-90 mmHg] 125/79 mmHg (12/02/15 2:50 PM) Respiratory Rate [14-20 BRMIN] 86 BRMIN *HI* (12/02/15 2:50 PM) Weight 56.818 kg (12/02/15 2:50 PM) Body Mass Index 24.46 m2 (12/02/15 2:50 PM) Problem List Condition Effective Dates Status Health Status Informant Anxiety(Confirmed) Active Chronic hepatitis C(Confirmed) Active Depression(Confirmed) Active Gallstones(Confirmed) Active HBP - High blood pressure(Confirmed) Active Allergies, Adverse Reactions, Alerts Substance Reaction Severity Status NKDA Active Medications No Known Medications Results No data available for this section [...]
--- OUTSIDE RECORDS SUMMARY | 2018-05-01 23:58 | XMS REPORT | Summary of Care ---
:1950 Author Name HOLLIE OSORIO M.D. Address Unavailable Unavailable , Care Team Providers Name Role Phone HOLLIE OSORIO M.D. Unavailable Unavailable DAVE ROBERTS DO Unavailable [...] Plus 106-1 MG Oral Capsule Refills: 0 R.N. Start : 01-Feb-2018 Active Lisinopril 10 MG Oral Tablet TAKE 1 TABLET TWICE DAILY. Quantity: 180 Refills: 1 R.N. Start : 01-Feb-2018 Active MetFORMIN HCl - 850 MG Oral Tablet TAKE 0.5 TABLET TWICE DAILY Refills: 0 R.N. Start : 01-Feb-2018 Active Vitamin D3 5000 UNIT Oral Capsule TAKE DIRECTED. Refills: 0 R.N. Start : 01-Feb-2018 Active ALPRAZolam 2 MG Oral Tablet TAKE 1 TABLET AT BEDTIME. Refills: 0 R.N. Start : 01-Feb-2018 Active Omeprazole 40 MG Oral Capsule Delayed Release TAKE 1 CAPSULE DAILY Refills: 0 R.N. Start : 01-Feb-2018 Active Morphine Sulfate 30 MG Oral Tablet TAKE 1.5 TABLET TWICE DAILY Refills: 0 R.N. Start : 01-Feb-2018 Active MethylPREDNISolone 4 MG Oral Tablet Therapy Pack Medrol dose lior (24 mg with tapering dose to 4 mg over 6 days) MDD:24mg Quantity: 21 Refills: 0 HOLLIE OSORIO M.D. Start : 01-Feb-2018 Active 21 Tablet Pack Nortriptyline HCl - 25 MG Oral Capsule TAKE 1 CAPSULE AT BEDTIME. Quantity: 30 Refills: 0 HOLLIE OSORIO M.D. Start : 08-Feb-2018 Active Allergies and Adverse Reactions Name Dates Details No Known Drug Allergies (Allergy) Status: Active Past Medical History Name Dates Details History of Chronic midline low back pain without sciatica (724.2, M54.5) Status: Resolved Procedures Procedure Dates Details MRI Brain w/wo contrast [id number] Date: 01-Feb-2018 History of Gallbladder surgery Completed Immunization Name Dates Details Immunizations not documented Family History Name Dates Details Family history of lung cancer (V16.1, Z80.1) Status: Active Social History Name Dates Details - Status: Name Dates Details Never smoker Vital Signs Date Test Result Details 06-Hhl-[id number]:36 BP Systolic 131 mm[Hg] Status: Comments: Location: RUE; Position: Sitting BP Diastolic 78 mm[Hg] Status: Comments: Location: [facility]; Position: Sitting Height 60 in Status: Weight 117 lb Status: Body Mass Index Calculated 22.85 kg/m2 Status: Body Surface Area Calculated 1.49 m2 Status: Heart Rate 73 /min Status: Comments: Location: R Brachial Artery; Results Date Description Value Details [id number] MRI Brain w/wo contrast [id number] Brain w/wo contrast MRI Cancel Reason: Exam Replaced 06-[id number]:25 MRI Brain wo contrast [id number] Brain wo contrast MRI SEE NOTES Comments: Patient Name: IRYA BLAKELY TRANDOB: 1950. Age: 67 years. Gender: Female.MR: [id number]. Location: [facility]. Provider: Hollie Osorio MD.EXAM: Brain wo contrast MRI.PROVIDED CLINICAL HISTORY: Headac hes for 2 months with pain radiating down theentire right side of the body. R51 Headache TECHNIQUE: Multi-sequence, multi-planar MR of the brain without gadoliniumcontrast. COMPARISON: No relevant prior exams available at the time of interpretation. _FINDINGS: BRAIN: -- Mild confluent abnormally increased T2 and FLAIR signal throughout thesupratentorial periventricular de ep white matter bilaterally, non-specific butmost commonly due to chronic small vessel ischemic disease.-- No areas of abnormally-restricted diffusion in a pattern suggestive ofacute or early subacu te ischemia. No intracranial hemorrhage. No other fluidcollection. No intracranial mass. No cerebellar tonsillar ectopia.Age-consistent brain parenchymal volume. VENTRICLES / CISTERNS / SHIFT: No hy drocephalus. No significant effacement ofthe basal cisterns or foramen magnum. No significant midline shift. VESSELS: No loss of flow voids within the major intracranial vessels or duralsinu ses. Vessel and dural sinus patency are not adequately assessed withoutdedicated angiography or venography. BONES / SCALP: No acute fracture. No significant systemic marrow signalabnormality. No a ggressive bony lesions. No significant extracranial softtissue abnormality.IMAGED SINUSES / MASTOIDS: No significant sinus mucosal thickening. Nosignificant paranasal sinus fluid. No significant ma stoid signal abnormality. IMPRESSION: No acute intracranial abnormality. Mild chronic microangiopathic ischemic gliosis. SL: [id number]-- Read by: Finesse Diasictated Date/time: 0 02/08/18 17:31Electronically Signed by: Finesse Dias MD 02/08/1817:40FINAL REPORT Plan of Care Name Dates Details Planned Observations Planned Goals not documented Planned Encounters Appointment; HOLLIE OSORIO M.D. On: 13-Feb-2018 9:00 Instructions Name Dates Details Instructions not documented Encounters Appointment; HOLLIE OSORIO M.D. On: 01-Feb-2018 8:00 Encounter Diagnosis: Problem not documented
[2018-05-02 01:02] LABS: Absolute Lymphocytes (CBC) 2.8 K/uL (0.7-4.9); Absolute Monocytes 0.8 K/uL (0.1-1.3); Basophils % 0.4 % (0-1.3); Eosinophils % 0.4 % (0-4.4); Hematocrit 34.5 % (36.0-45.0); Lymphocytes % 28.3 % (15.3-44.8); MCH 30.9 pg (27.0-35.0); MCV 90.6 fL (80-100); MPV 7.6 fL (7.6-11.3); Monocytes % 8.6 % (3.3-12.3); RBC Red Blood Cell Count 3.81 M/uL (3.86-4.86)
[2018-05-02 01:11] LABS: Protime INR 0.92
[2018-05-02] MEDS ORDERED: ACETAMINOPHEN 500 MG TAB ONE (01:19)
[2018-05-02 01:23] LABS: ALT/SGPT 23 U/L (12-78); AST/SGOT 16 U/L (15-37); Albumin 3.6 g/dL (3.4-5.0); Alkaline Phosphatase 61 U/L (45-117); BUN Blood Urea Nitrogen 18 mg/dL (7-18); Bicarbonate 27 mmol/L (21-32); Bilirubin Direct < 0.1 mg/dL (0-0.2); Bilirubin Total 0.2 mg/dL (0.2-1.0); CKMB Creatine Kinase MB < 1.0 ng/mL (0.3-3.6); Creatine Phosphokinase 76 U/L (26-192); Glucose Level 96 mg/dL (74-106); Magnesium 2.3 mg/dL (1.8-2.4); NT PRO-BNP 123 pg/mL (<125); Potassium 4.3 mmol/L (3.5-5.1); Protein, Total 8.5 g/dL (6.4-8.2); Sodium Level 142 mmol/L (136-145)
[2018-05-02 01:44] LABS: Urine Blood TRACE (NEG); Urine Glucose NEGATIVE (NEG); Urine Protein NEGATIVE (NEG); Urine Specific Gravity 1.015 (1.005-1.030); Urine pH 6.5 (5.0-7.0)
--- NOTE | 2018-05-02 02:25 | EDPHYS ---
Physician Documentation [facility] Name: Alberto Botello Age: 67 yrs Sex: Female : 1950 Arrival Date: 05/01/2018 Time: 23:58 Bed 30 Private MD: Diego Vaughan, A ED Physician Ryan Gonzalez HPI: 05/02 02:18 This 67 yrs old Female presents to ER via Wheelchair with complaints of Weakness. tw4 02:18 The patient presents with generalized weakness. Onset: The symptoms/episode tw4 began/occurred just prior to arrival, today. Context: occurred at home, occurred while the patient was lying down. Modifying factors: The symptoms are alleviated by nothing, the symptoms are aggravated by nothing. Associated signs and symptoms: Pertinent positives: palpitations, Pertinent negatives: abdominal pain, agitation, ataxia, blurred vision, chest pain, combativeness, confusion, diaphoresis, focal weakness, head injury. Severity of symptoms: At their worst the symptoms were moderate in the emergency department the symptoms are unchanged. The patient has not experienced similar symptoms in the past. Historical: - Allergies: 00:30 No Known Allergies; bs1 - Home Meds: 00:30 lisinopril 10 mg Oral tab 1 tab once daily [Active]; metformin 850 mg Oral tab daily bs1 [Active]; trazodone 100 mg Oral tab 1 tab [Active]; ranitidine Oral [Active]; 02:56 alprazolam 2 mg Oral tab nightly [Active]; Meclizine Oral [Active]; meloxicam Oral bs1 [Active]; - PMHx: 00:30 Chronic pain; Hepatitis; Hypertension; Osteoporosis; Pancreatitis; Diabetes - NIDDM; bs1 - PSHx: 00:30 Hysterectomy; Appendectomy; bs1 - Immunization history:: Adult Immunizations up to date. - Social history:: Smoking status: Patient/guardian denies using tobacco. - Ebola Screening: : Patient negative for fever greater than or equal to 101.5 degrees Fahrenheit, and additional compatible Ebola Virus Disease symptoms Patient denies exposure to infectious person. ROS: 02:18 Constitutional: Negative for fever, chills, and weight loss, Neck: Negative for injury, tw4 pain, and swelling, Respiratory: Negative for shortness of breath, cough, wheezing, and pleuritic chest pain, Abdomen/GI: Negative for abdominal pain, nausea, vomiting, diarrhea, and constipation. 02:18 Back: Negative for injury and pain, MS/Extremity: Negative for injury and deformity, Skin: Negative for injury, rash, and discoloration, Neuro: Negative for headache, weakness, numbness, tingling, and seizure. 02:18 Cardiovascular: Positive for palpitations, Negative for chest pain, edema, orthopnea. Exam: 02:18 Constitutional: This is a well developed, well nourished patient who is awake, alert, tw4 and in no acute distress. Head/Face: Normocephalic, atraumatic. Eyes: Pupils equal round and reactive to light, extra-ocular motions intact. Lids and lashes normal. Conjunctiva and sclera are non-icteric and not injected. Cornea within normal limits. Periorbital areas with no swelling, redness, or edema. Chest/axilla: Normal chest wall appearance and motion. Nontender with no deformity. No lesions are appreciated. Cardiovascular: Regular rate and rhythm with a normal S1 and S2. No gallops, murmurs, or rubs. Normal PMI, no JVD. No pulse deficits. Respiratory: Lungs have equal breath sounds bilaterally, clear to auscultation and percussion. No rales, rhonchi or wheezes noted. No increased work of breathing, no retractions or nasal flaring. Abdomen/GI: Soft, non-tender, with normal bowel sounds. No distension or tympany. No guarding or rebound. No evidence of tenderness throughout. Back: No spinal tenderness. No costovertebral tenderness. Full range of motion. MS/ Extremity: Pulses equal, no cyanosis. Neurovascular intact. Full, normal range of motion. Neuro: Awake and alert, GCS 15, oriented to person, place, time, and situation. Cranial nerves II-XII grossly intact. Motor strength 5/5 in all extremities. Sensory grossly intact. Cerebellar exam normal. Normal gait. Psych: Awake, alert, with orientation to person, place and time. Behavior, mood, and affect are within normal limits. Vital Signs: 00:08 BP 141 / 79; Pulse 83; Resp 15; Temp 99.0(O); Pulse Ox 100% on R/A; Weight 53.52 kg; bs1 Height 5 ft. (152.40 cm); Pain 0/10; 00:15 BP 126 / 73; Pulse 81; Resp 16; Pulse Ox 100% on R/A; bs1 01:15 BP 122 / 62; Pulse 79; Resp 16 S; Pulse Ox 97% on R/A; Pain 5/10; bs1 02:15 BP 125 / 72; Pulse 78; Resp 16; Temp 98.7(O); Pulse Ox 99% ; Pain 0/10; bs1 00:08 Body Mass Index 23.05 (53.52 kg, 152.40 cm) bs1 MDM: 00:02 Patient medically screened. tw4 02:18 Differential diagnosis: generalized weakness, idiopathic dizziness, near-syncope, tw4 vertigo, adverse drug reaction. Data reviewed: vital signs, nurses notes. Data interpreted: residential monitor: Pulse oximetry: Interpretation: normal. Test interpretation: by ED physician or midlevel provider: ECG. Counseling: I had a detailed discussion with the patient and/or guardian regarding: the historical points, exam findings, and any diagnostic results supporting the discharge/admit diagnosis. Special discussion: I discussed with the patient/guardian in detail that at this point there is no indication for admission to the hospital. It is understood, however, that if the symptoms persist or worsen the patient needs to return immediately for re-evaluation. 05/02 00:29 Order name: Basic Metabolic Panel; Complete Time: 02:05/02 02:22 Interpretation: Normal except: CL 109; GFR 41; CA 8.4. 05/02 00:29 Order name: CBC with Diff; Complete Time: 02:05/02 02:22 Interpretation: Normal except: RBC 3.81; HCT 34.5; HGB 11.8. 05/02 00:29 Order name: Ckmb; Complete Time: 02:05/02 02:23 Interpretation: Within normal limits: CKMB < 1.0. 05/02 00:29 Order name: CPK; Complete Time: 02:05/02 02:23 Interpretation: Within normal limits: CPK 76. 05/02 00:29 Order name: LFT's; Complete Time: 02:22 05/02 00:29 Order name: Magnesium; Complete Time: 02:05/02 02:23 Interpretation: Within normal limits: MG 2.3. 05/02 00:29 Order name: NT PRO-BNP; Complete Time: 02:22 tw4 05/02 02:23 Interpretation: Within normal limits: NT PRO-BNP 123. 05/02 00:29 Order name: PT-INR; Complete Time: 02:22 tw4 05/02 02:23 Interpretation: Within normal limits: PT 10.8. 05/02 00:29 Order name: Ptt, Activated; Complete Time: 02:22 05/02 02:22 Interpretation: Normal except: PTT 38.9. 05/02 00:29 Order name: Troponin (emerg Dept Use Only); Complete Time: 02:22 tw05/02 02:23 Interpretation: Within normal limits: TROPED < 0.02. 05/02 00:29 Order name: EKG; Complete Time: 00:30 tw4 05/02 01:40 Order name: Urine Dipstick--Ancillary (enter results) ms 05/02 01:40 Order name: Urine Dipstick-Ancillary; Complete Time: 02:22 EDMS 05/02 00:29 Order name: Cardiac monitoring; Complete Time: 01:15 05/02 00:29 Order name: EKG - Nurse/Tech; Complete Time: 01:15 05/02 00:29 Order name: IV Saline Lock; Complete Time: 01:16 05/02 00:29 Order name: Labs collected and sent; Complete Time: 01:16 05/02 00:29 Order name: O2 Per Protocol; Complete Time: 01:16 05/02 00:29 Order name: O2 Sat Monitoring; Complete Time: :16 05/02 00:29 Order name: Urine Dipstick-Ancillary (obtain specimen); Complete Time: 01:33 tw4 EC:18 Rate is 73 beats/min. Rhythm is regular. QRS [place] is Normal. [place] interval is normal. QRS tw4 interval is normal. No Q waves. T waves are Inverted in leads V1, V2, V3. No ST changes noted. Clinical impression: Abnormal EKG without significant change. Interpreted by me. Reviewed by me. Administered Medications: 01:20 Drug: Tylenol 1000 mg Route: PO; bs1 01:33 Follow up: Response: No adverse reaction bs1 Disposition: 05/02/18 02:24 Discharged to Home. Impression: Weakness. - Condition is Stable. - Discharge Instructions: Weakness, Fatigue. - Medication Reconciliation Form, Thank You Letter, Antibiotic Education, Prescription Opioid Use form. - Follow up: Diego Vaughan MD; When: Upon discharge from the Emergency Department; Reason: Further diagnostic work-up, Recheck today's complaints, Re-evaluation by your physician. - Problem is new. - Symptoms have improved. Signatures: Dispatcher [employer] EDVaishali Galvez RN RN bs1 Ryan Gonzalez MD MD tw4 Corrections: (The following items were deleted from the chart) 02:59 02:24 05/02/2018 02:24 Discharged to Home. Impression: Weakness. Condition is Stable. bs1 Forms are Medication Reconciliation Form, Thank You Letter, Antibiotic Education, Prescription Opioid Use. Follow up: Diego Vaughan; When: Upon discharge from the Emergency Department; Reason: Further diagnostic work-up, Recheck today's complaints, Re-evaluation by your physician. Problem is new. Symptoms have improved. tw4
--- NOTE | 2018-05-02 02:25 | ER ---
Nurse's Notes [facility] Name: Alberto Botello Age: 67 yrs Sex: Female : 1950 Arrival Date: 05/01/2018 Time: 23:58 Bed 30 Private MD: Diego Vaughan A Diagnosis: Weakness Presentation: 05/02 00:24 Presenting complaint: Per report from family member"She has not been sleeping well for bs1 the past month, last night she did not sleep at all, she is going on 24 hours now without sleep, she went to the Dr today and they prescribed trazodone for her to try, she took that at 9pm and at 11pm she started to feel very shaky, dizzy, she felt like her heart was racing, very weak, short of breath and she felt like she was running a fever.". Transition of care: patient was not received from another setting of care. Onset of symptoms was May 01, 2018. Risk Assessment: Do you want to hurt yourself or someone else? Patient reports no desire to harm self or others. Initial Sepsis Screen: Does the patient meet any 2 criteria? No. Patient's initial sepsis screen is negative. Does the patient have a suspected source of infection? No. Patient's initial sepsis screen is negative. Care prior to arrival: None. 00:24 Method Of Arrival: Wheelchair bs1 00:24 Acuity: ART 3 bs1 Historical: - Allergies: 00:30 No Known Allergies; bs1 - Home Meds: 00:30 lisinopril 10 mg Oral tab 1 tab once daily [Active]; metformin 850 mg Oral tab daily bs1 [Active]; trazodone 100 mg Oral tab 1 tab [Active]; ranitidine Oral [Active]; 02:56 alprazolam 2 mg Oral tab nightly [Active]; Meclizine Oral [Active]; meloxicam Oral bs1 [Active]; - PMHx: 00:30 Chronic pain; Hepatitis; Hypertension; Osteoporosis; Pancreatitis; Diabetes - NIDDM; bs1 - PSHx: 00:30 Hysterectomy; Appendectomy; bs1 - Immunization history:: Adult Immunizations up to date. - Social history:: Smoking status: Patient/guardian denies using tobacco. - Ebola Screening: : Patient negative for fever greater than or equal to 101.5 degrees Fahrenheit, and additional compatible Ebola Virus Disease symptoms Patient denies exposure to infectious person. Screenin:54 Abuse screen: Denies threats or abuse. Denies injuries from another. Nutritional bs1 screening: No deficits noted. Tuberculosis screening: No symptoms or risk factors identified. Fall Risk None identified. Assessment: 00:05 General: Appears in no apparent distress. uncomfortable, Behavior is calm, cooperative, bs1 appropriate for age. Pain: Complains of pain in headache. Neuro: Level of Consciousness is awake, alert, obeys commands, Speech is normal, Facial symmetry appears normal, Reports dizziness, headache weakness. Cardiovascular: Reports palpitations, shortness of breath, Denies chest pain, Heart tones S1 S2 present Capillary refill < 3 seconds Patient's skin is warm and dry. Respiratory: Airway is patent Trachea midline Respiratory effort is even, unlabored, Respiratory pattern is regular, symmetrical, Breath sounds are clear bilaterally. GI: No signs and/or symptoms were reported involving the gastrointestinal system. : No signs and/or symptoms were reported regarding the genitourinary system. EENT: No signs and/or symptoms were reported regarding the EENT system. Derm: No signs and/or symptoms reported regarding the dermatologic system. Musculoskeletal: Circulation, motion, and sensation intact. Capillary refill < 3 seconds. 01:15 Reassessment: patient c/o headache, Dr Gonzalez gave verbal order to give 1g tylenol. bs1 01:30 Reassessment: Patient appears in no apparent distress at this time. Patient and/or bs1 family updated on plan of care and expected duration. Pain level reassessed. Patient is alert, oriented x 3, equal unlabored respirations, skin warm/dry/pink. Informed of pending lab work. 02:45 Reassessment: Patient appears in no apparent distress at this time. Patient and/or bs1 family updated on plan of care and expected duration. Pain level reassessed. Patient is alert, oriented x 3, equal unlabored respirations, skin warm/dry/pink. Informed patient and family of discharge instructions. Vital Signs: 00:08 BP 141 / 79; Pulse 83; Resp 15; Temp 99.0(O); Pulse Ox 100% on R/A; Weight 53.52 kg; bs1 Height 5 ft. (152.40 cm); Pain 0/10; 00:15 BP 126 / 73; Pulse 81; Resp 16; Pulse Ox 100% on R/A; bs1 01:15 BP 122 / 62; Pulse 79; Resp 16 S; Pulse Ox 97% on R/A; Pain 5/10; bs1 02:15 BP 125 / 72; Pulse 78; Resp 16; Temp 98.7(O); Pulse Ox 99% ; Pain 0/10; bs1 00:08 Body Mass Index 23.05 (53.52 kg, 152.40 cm) bs1 ED Course: 05/01 23:58 Patient arrived in ED. al2 23:58 Diego Vaughan MD is Private Physician. al2 05/02 00:02 Ryan Gonzalez MD is Attending Physician. tw4 00:10 Patient has correct armband on for positive identification. Bed in low position. Call bs1 light in reach. Side rails up X 1. secondary special education teacher on. Pulse ox on. NIBP on. 00:10 Warm blanket given. bs1 00:23 Vaishali Burciaga RN is Primary Nurse. bs1 00:27 Triage completed. bs1 00:48 Inserted saline lock: 24 gauge in right forearm, using aseptic technique. Blood bs1 collected. 02:24 Diego Vaughan MD is Referral Physician. tw4 02:55 No provider procedures requiring assistance completed. IV discontinued, bleeding bs1 controlled, No redness/swelling at site. Pressure dressing applied. 02:55 Arm band placed on right wrist. bs1 Administered Medications: 01:20 Drug: Tylenol 1000 mg Route: PO; bs1 01:33 Follow up: Response: No adverse reaction bs1 Outcome: 02:24 Discharge ordered by . tw4 02:57 Discharged to home via wheelchair. bs1 02:57 Condition: stable 02:57 Discharge instructions given to patient, Instructed on discharge instructions, follow up and referral plans. medication usage, Demonstrated understanding of instructions, follow-up care, medications, Prescriptions given X 1. 02:59 Patient left the ED. bs1 Signatures: Vaishali Burciaga RN RN bs1 Jessica Bravo al2 Ryan Gonzalez MD MD tw4
[2018-05-02 03:17] VITALS: BP 125/72; TEMP 98.7; O2SAT 99
--- NOTE | 2018-05-02 12:46 | EKG ---
Test Date: 2018-05-02 Test Time: 01:06:02 Medical Massage Therapist: CRESENCIO MEASUREMENT RESULTS: Intervals: Rate: 73 WV: 148 QRSD: 80 QT: 386 QTc: 425 [place]: P: 48 WV: 148 QRS: 49 T: 42 INTERPRETIVE STATEMENTS: Normal sinus rhythm ST & T wave abnormality, consider anterior ischemia Abnormal ECG Compared to ECG 06/12/2017 22:50:43 ST (T wave) deviation now present T-wave abnormality no longer present Possible ischemia still present Electronically Signed On 05-02-18 12:44:22 CDT by Darrin Saldaña
== END 2018-05-02 02:59 | disposition home or self-care (01) ==
LOC: ER 23:54
DX: R53.1 Weakness (principal); I10 Essential (primary) hypertension; E11.9 Type 2 diabetes mellitus without complications
CPT/HCPCS: 36415; 80048; 80076; 81003; 82550; 82553; 83735; 83880; 84484; 85025; 85610; 85730; 93005; 99284

== ENCOUNTER 2018-05-09 17:08 | Observation (INO) | payer OTHER ==
--- OUTSIDE RECORDS SUMMARY | 2018-05-09 17:11 | XMS REPORT | Continuity of Care Document ---
:1950 Author Organization Interface Problems Problem Status Onset Classification Date Comments Source Date Reported R51 - HEADACHE Active 02/04/20 [facility] [place] R51.- HEADACHE Active 02/04/20 [facility] [place] MILD STEATOSIS Active 03/23/[address] BDDC - F/U Active 12/08/[address] R10.9 - Active 12/04/19 [facility] UNSPECIFIED [address] [place] [address] ABDOMINAL PAIN FOLLOW UP Active 11/28/[address] STOMACH PAIN Active 11/14/19 [facility] SELF [address] [place] [address] REFERRAL Anxiety Active Problem 03/26/2016 [facility] [place] Chronic Active Problem 03/26/2016 [facility] hepatitis C [place] Depression Active Problem 03/26/2016 [facility] [place] Gallstones Active Problem 03/26/2016 [facility] [place] HBP - High Active Problem 03/26/2016 [facility] blood pressure [place] Abdominal pain Active Problem 02/11/2018 [facility], [facility] [place] Anxiety Active Problem 02/11/2018 [facility] [place], [facility] [place] Chronic Active Problem 02/11/2018 [facility] hepatitis C [place], [facility] [place] Depression Active Problem 02/11/2018 [facility] [place], [facility] [place] Gallstones Active Problem 02/11/2018 [facility] [place], [facility] [place] HBP - High Active Problem 02/11/2018 [facility] blood pressure [place], [facility] [place] MEDICAL Active [facility] SERVICES NOT Medical Center AVAILABLE IN HOME ALCOHOLIC FATTY Active [facility] LIVER Medical Center OTHER Active [facility] CONGENITAL DEFORMITIES FATTY (CHANGE Active [facility]) LIVER, NOT Medical Center ELSEWHERE C Medications Medication Details Route Status Patient Ordering Order Source Instructions Provider Date linaclotide 0.145 145 Active [place] [facility] Oral Capsule microgram= 016 Medical [Linzess] 1 cap, PO, Center Daily, 30 minutes prior to the first meal of the day, # 30 cap, 0 Refill(s) oxybutynin 15 mg 15 mg=1 Active [facility] oral tablet, tab, PO, 016 Medical extended release Daily, # Center 30 tab, 0 Refill(s) lubiprostone 0.008 8 Active [facility] MG Oral Capsule microgram= 016 Medical [Amitiza] 1 cap, PO, Center BID, # 60 tab, 0 Refill(s) linaclotide 0.145 145 Active [facility] MG Oral Capsule microgram= 016 Medical [Linzess] [...] Refill(s) ranitidine 300 mg 300 mg=1 Active [facility] oral tablet tab, PO, 016 Medical Bedtime, # Center 30 tab, 0 Refill(s) lisinopril 5 mg 5 mg=1 Active [facility] oral tablet tab, PO, 016 Medical Daily, # Center 30 tab, 0 Refill(s) Metoclopramide 5 5 mg=1 Active [facility] MG Oral Tablet tab, PO, 016 Medical BID, 0 Center Refill(s) Alprazolam 2 MG 2 mg=1 Active [facility] Oral Tablet tab, PO, 016 Medical Daily, PRN Center Anxiety, 0 Refill(s) dexlansoprazole 60 60 mg=1 Active [place] [facility] Enteric Coated cap, PO, 016 Medical Capsule [Dexilant] Daily, # Center 30 day, 0 Refill(s) morphine 30 mg 30 mg=1 Active [facility] oral tablet tab, PO, 016 Medical Q4H, PRN Center Pain, 0 Refill(s) Allergies, Adverse Reactions, Alerts Substance Category Reaction Severity Reaction Status Date Comments Source type Reported NKDA Assertion Drug Active [facility] allergy [place] Immunizations Immunization Date Given Site Status Last Updated Comments Source Results Order Results Value Reference Date Interpretation Comments Source Name Range Brain wo Brain wo Patient Name: RIYA LUNA 02/08 - [facility] contrast contrast /2017 - [place] MRI MRI : 1950. Age: 67 years. Gender: Female. MR: [id number]. Location: [facility]. Provider: Hollie Osorio MD. Read by: Finesse [...] abnormality. Mild chronic microangiopathic ischemic gliosis. SL: [id number] Abdomen Abdomen PROCEDURE: MAGNETIC RESONANCE CHOLANGIOPANCREATOGRAPHY - [facility] wo wo /2015 - [place] contrast contrast MRI MRI CLINICAL INDICATION: R10.9 [...] THE ABDOMEN - WILLD w/wo w/wo - [place] contrast contrast MRI MRI REASON FOR EXAM: [...] Source Systolic (mm Hg) 121 12/16/2015 [facility] Diastolic (mm Hg) 75 12/16/2015 [facility] Weight 57.273 12/16/2015 [facility] Height 152.4 cm 12/16/2015 [facility] Respitory Rate 92 12/16/2015 [facility] BMI Calculated 24.66 12/16/2015 [facility] BMI Calculated 24.46 12/02/2015 [facility] Weight 56.818 12/02/2015 [facility] Height 152.4 cm 12/02/2015 [facility] Systolic (mm Hg) 125 12/02/2015 [facility] Diastolic (mm Hg) 79 12/02/2015 [facility] Respitory Rate 86 12/02/2015 [facility] Systolic (mm Hg) 134 11/24/2015 [facility] Diastolic (mm Hg) 87 11/24/2015 [facility] Height 180.34 cm 11/24/2015 [facility] Heart Rate 84 11/24/2015 [facility] BMI Calculated 17.61 11/24/2015 [facility] Weight 57.273 11/24/2015 [facility] Encounters Location Location Encounter Encounter Reason Attending ADM DC Status Source Details Type Number For Provider Date Date Visit [facility] Outpatient [id number] At[place] 11/23 11/24 [facility] Out[facility] [id number] [facility]/01 [facility] [id number] At[facility] 12/10 12/11 [facility] Outpatient [id number] Julien 12/15 12/16 [facility] [id number] Julien 03/23 03/24 [facility] Outpatient [id number] Julien 03/23 03/[address] [facility] [id number] Hollie 02/08 02/09 [facility] [place] Procedures Procedure Code Date Perfomer Comments Source Biopsy of liver [id number] [facility] [place] Cataract surgery [id number] [facility] [place] Colonoscopy [id number] [facility] [place] Endoscopy [id number] [facility] [place] Hysterectomy [id number] [facility] [place] Ultrasound [id number] [facility] [place] Biopsy of liver [id number] [facility] Cataract surgery [id number] [facility] Colonoscopy [id number] [facility] Endoscopy [id number] [facility] Hysterectomy [id number] [facility] Ultrasound [id number] [facility] MRI of abdomen [id number] [facility] MRI of kidneys [id number] [facility] Biopsy of liver [id number] [facility] [place] Cataract surgery [id number] [facility] [place] Colonoscopy [id number] [facility] [place] Endoscopy [id number] [facility] [place] Hysterectomy [id number] [facility] [place] MRI of abdomen [id number] [facility] [place] MRI of kidneys [id number] [facility] [place] Ultrasound [id number] [facility] [place]
[2018-05-09 18:11] LABS: Absolute Monocytes 0.5 K/uL (0.1-1.3); Absolute Neutrophil 6.1 K/uL (1.8-8.0); Basophils % 0.2 % (0-1.3); Eosinophils % 0.5 % (0-4.4); Hematocrit 32.9 % (36.0-45.0); MCH 31.3 pg (27.0-35.0); MCV 92.3 fL (80-100); MPV 7.3 fL (7.6-11.3); Monocytes % 5.9 % (3.3-12.3); RBC Red Blood Cell Count 3.57 M/uL (3.86-4.86)
[2018-05-09 18:13] LABS: Protime INR 0.92
[2018-05-09 18:28] LABS: ALT/SGPT 25 U/L (12-78); AST/SGOT 17 U/L (15-37); Albumin 3.7 g/dL (3.4-5.0); Alkaline Phosphatase 75 U/L (45-117); BUN Blood Urea Nitrogen 33 mg/dL (7-18); Bicarbonate 25 mmol/L (21-32); Bilirubin Direct < 0.1 mg/dL (0-0.2); CKMB Creatine Kinase MB 1.5 ng/mL (0.3-3.6); Creatine Phosphokinase 88 U/L (26-192); Glucose Level 166 mg/dL (74-106); Lipase 260 U/L (73-393); Magnesium 2.5 mg/dL (1.8-2.4); NT PRO-BNP 153 pg/mL (<125); Potassium 4.7 mmol/L (3.5-5.1); Protein, Total 8.4 g/dL (6.4-8.2); Sodium Level 140 mmol/L (136-145)
[2018-05-09] MEDS ORDERED: FOLIC ACID 5 MG/ML VIAL ONE (18:35)
[2018-05-09] MEDS ORDERED: NA CHLORIDE 0.9% 1,000 ML ONE (18:35)
[2018-05-09 18:44] LABS: Bilirubin Total 0.1 mg/dL (0.2-1.0)
--- NOTE | 2018-05-09 19:07 | RAD REPORT ---
EXAM DESCRIPTION: RAD - Chest Single View - 05/09/2018 6:08 pm CLINICAL HISTORY: COUGH Chest pain. COMPARISON: 06/12/2017, 07/06/2017 FINDINGS: Portable technique limits examination quality. The lungs are grossly clear. The heart is normal in size. No displaced fractures. IMPRESSION: No acute intrathoracic process suspected.
--- NOTE | 2018-05-09 19:07 | RAD REPORT ---
EXAM DESCRIPTION: CT - Head Brain Wo Cont - 05/09/2018 6:20 pm CLINICAL HISTORY: DIZZINESS Headache COMPARISON: Head Brain Wo Cont dated 01/20/2018; Head Brain Wo Cont dated 01/04/2018 TECHNIQUE: All CT scans are performed using dose optimization technique as appropriate and may inclu de automated exposure control or mA/KV adjustment according to patient size. FINDINGS: No intracranial hemorrhage, hydrocephalus or extra-axial fluid collection.Mild generalized brain atrophy is present with mild periventricular and deep white matter chronic microvascular ische delia changes.No areas of brain edema or evidence of midline shift. The paranasal sinuses and mastoids are clear. The calvarium is intact. IMPRESSION: No acute intracranial abnormality.
--- NOTE | 2018-05-09 19:30 | RAD REPORT ---
EXAM DESCRIPTION: MRI - Brain Wo Cont - 05/09/2018 7:19 pm CLINICAL HISTORY: Dizziness;Numbness Headache, CVA COMPARISON: Head Brain Wo Cont dated 05/09/2018 TECHNIQUE: Multi-sequence, multiplanar MR imaging of the brain was performed without contrast. FINDINGS: Moderate global brain atrophy. No intracranial hemorrhage, hydrocephalus or extra-axial fl uid collections.A few punctate T2/FLAIR hyperintensities in the periventricular and deep white matter are noted, compatible with minimal chronic microvascular ischemic changes. No edema or shift of midl ine structures. No findings to suspect brain mass. DWI is negative for acute CVA. Midline structures are normally formed. Mastoid air cells and paranasal sinuses are clear. IMPRESSION: No acute or concerning intracranial abnormalities.
--- NOTE | 2018-05-09 19:57 | EDPHYS ---
Physician Documentation [facility] Name: Alberto Botello Age: 67 yrs Sex: Female : 1950 Arrival Date: 05/09/2018 Time: 17:[address] Private MD: Alis Jamison H ED Physician Rob Galo HPI: 05/09 17:38 This 67 yrs old Female presents to ER via Wheelchair with complaints of Numbness, sarah Headache. 17:38 The patient's problem is reported as weakness. Onset: The symptoms/episode sarah began/occurred today, yesterday. Duration: The episode is continuous. Context: the episode(s) was witnessed, by family. The symptoms are alleviated by nothing. The symptoms are aggravated by nothing. Associated signs and symptoms: The patient has no apparent associated signs or symptoms. Severity of symptoms: At their worst the symptoms were mild in the emergency department the symptoms are unchanged. Patient's baseline: Neuro:. Historical: - Allergies: 17:16 No Known Allergies; - Home Meds: 17:16 alprazolam 2 mg Oral tab nightly [Active]; lisinopril 10 mg Oral tab 1 tab once daily ch [Active]; Meclizine Oral [Active]; meloxicam Oral [Active]; metformin 850 mg Oral tab daily [Active]; Ranitidine Oral [Active]; trazodone 100 mg Oral tab 1 tab [Active]; - PMHx: 17:16 Chronic pain; Diabetes - NIDDM; Hepatitis; Hypertension; Osteoporosis; Pancreatitis; ch - PSHx: 17:16 Hysterectomy; Appendectomy; - Immunization history:: Adult Immunizations up to date. - Social history:: Smoking status: Patient/guardian denies using tobacco. - Ebola Screening: : Patient negative for fever greater than or equal to 101.5 degrees Fahrenheit, and additional compatible Ebola Virus Disease symptoms Patient denies exposure to infectious person Patient denies travel to an Ebola-affected area in the 21 days before illness onset No symptoms or risks identified at this time. - Family history:: not pertinent. ROS: 17:38 Constitutional: Negative for fever, chills, and weight loss, Eyes: Negative for injury, sarah pain, redness, and discharge, ENT: Negative for injury, pain, and discharge, Neck: Negative for injury, pain, and swelling, Cardiovascular: Negative for chest pain, palpitations, and edema, Respiratory: Negative for shortness of breath, cough, wheezing, and pleuritic chest pain, Abdomen/GI: Negative for abdominal pain, nausea, vomiting, diarrhea, and constipation, Back: Negative for injury and pain, : Negative for injury, bleeding, discharge, and swelling, MS/Extremity: Negative for injury and deformity, Skin: Negative for injury, rash, and discoloration, Neuro: Negative for headache, weakness, numbness, tingling, and seizure, Psych: Negative for depression, anxiety, suicide ideation, homicidal ideation, and hallucinations, Endocrine: Negative for neck swelling, polydipsia, polyuria, polyphagia, and marked weight changes, Hematologic/Lymphatic: Negative for swollen nodes, abnormal bleeding, and unusual bruising. Exam: 17:38 Constitutional: This is a well developed, well nourished patient who is awake, alert, sarah and in no acute distress. Head/Face: Normocephalic, atraumatic. Eyes: Pupils equal round and reactive to light, extra-ocular motions intact. Lids and lashes normal. Conjunctiva and sclera are non-icteric and not injected. Cornea within normal limits. Periorbital areas with no swelling, redness, or edema. ENT: Nares patent. No nasal discharge, no septal abnormalities noted. Tympanic membranes are normal and external auditory canals are clear. Oropharynx with no redness, swelling, or masses, exudates, or evidence of obstruction, uvula midline. Mucous membranes moist. Neck: Trachea midline, no thyromegaly or masses palpated, and no cervical lymphadenopathy. Supple, full range of motion without nuchal rigidity, or vertebral point tenderness. No Meningismus. Chest/axilla: Normal chest wall appearance and motion. Nontender with no deformity. No lesions are appreciated. Cardiovascular: Regular rate and rhythm with a normal S1 and S2. No gallops, murmurs, or rubs. Normal PMI, no JVD. No pulse deficits. Respiratory: Lungs have equal breath sounds bilaterally, clear to auscultation and percussion. No rales, rhonchi or wheezes noted. No increased work of breathing, no retractions or nasal flaring. Abdomen/GI: Soft, non-tender, with normal bowel sounds. No distension or tympany. No guarding or rebound. No evidence of tenderness throughout. Back: No spinal tenderness. No costovertebral tenderness. Full range of motion. Skin: Warm, dry with normal turgor. Normal color with no rashes, no lesions, and no evidence of cellulitis. MS/ Extremity: Pulses equal, no cyanosis. Neurovascular intact. Full, normal range of motion. Neuro: Awake and alert, GCS 15, oriented to person, place, time, and situation. Cranial nerves II-XII grossly intact. Motor strength 5/5 in all extremities. Sensory grossly intact. Cerebellar exam normal. Normal gait. Psych: Awake, alert, with orientation to person, place and time. Behavior, mood, and affect are within normal limits. 17:40 Radiologist reports: see report [facility] Vital Signs: 17:16 BP 119 / 72; Pulse 113; Resp 22; Temp 97.8; Pulse Ox 99% on R/A; Weight 50.8 kg; Height ch 5 ft. (152.40 cm); Pain 8/10; 20:35 BP 120 / 95; Pulse 77; Resp 16; Temp 97.9; Pulse Ox 98% on R/A; Pain 0/10; ak1 21:19 BP 131 / 71; Pulse 70; Resp 18; Temp 97.9; Pulse Ox 98% on R/A; Pain 0/10; ak1 17:16 Body Mass Index 21.87 (50.80 kg, 152.40 cm) NIH Stroke Scale Scores: 17:38 NIHSS Score: 0 [facility] MDM: 17:28 Patient medically screened. [facility] 17:40 Data reviewed: vital signs, nurses notes, lab test result(s), EKG, radiologic studies, [facility] CT scan, MRI, plain films. 05/09 17:37 Order name: Basic Metabolic Panel; Complete Time: 19:51 [facility] 05/09 17:37 Order name: CBC with Diff; Complete Time: 19:51 [facility] 05/09 17:37 Order name: Ckmb; Complete Time: 19:51 [facility] 05/09 17:37 Order name: CPK; Complete Time: 19:51 [facility] 05/09 17:37 Order name: LFT's; Complete Time: 19:51 [facility] 05/09 17:37 Order name: Magnesium; Complete Time: 19:51 [facility] 05/09 17:37 Order name: NT PRO-BNP; Complete Time: 19:51 [facility] 05/09 17:37 Order name: PT-INR; Complete Time: 19:51 [facility] 05/09 17:37 Order name: Ptt, Activated; Complete Time: 19:51 [facility] 05/09 17:37 Order name: Troponin (emerg Dept Use Only); Complete Time: 19:51 [facility] 05/09 17:37 Order name: Lipase; Complete Time: 19:51 [facility] 05/09 17:37 Order name: Urine Culture [facility] 05/09 20:31 Order name: Urine Dipstick--Ancillary (enter results) ut 05/09 21:17 Order name: Urine Dipstick-Ancillary [facility] 05/09 17:37 Order name: XRAY Chest (1 view); Complete Time: 19:51 [facility] 05/09 17:37 Order name: EKG; Complete Time: 17:38 [facility] 05/09 17:37 Order name: Cardiac monitoring; Complete Time: 18:26 [facility] 05/09 17:37 Order name: EKG - Nurse/Tech; Complete Time: 18:26 [facility] 05/09 17:37 Order name: IV Saline Lock; Complete Time: 18:26 [facility] 05/09 17:37 Order name: Labs collected and sent; Complete Time: 18:26 [facility] 05/09 17:37 Order name: O2 Per Protocol; Complete Time: 18:26 [facility] 05/09 17:37 Order name: O2 Sat Monitoring; Complete Time: 18:26 [facility] 05/09 17:37 Order name: CT Head Brain wo Cont; Complete Time: 19:51 [facility] 05/09 17:48 Order name: Brain Wo Cont; Complete Time: 19:51 [facility] 05/09 17:37 Order name: Urine Dipstick-Ancillary (obtain specimen); Complete Time: 20:23 [facility] Administered Medications: 20:16 Drug: NS 0.9% 1000 ml Route: IV; Rate: 1 bolus; Site: right wrist; ak1 21:20 Follow up: IV Status: Infusion continued upon admission ak1 22:04 Follow up: IV Status: Completed infusion; IV Intake: 1000ml tl2 20:16 Drug: foLIC Acid 1 mg Route: IVPB; Site: right wrist; ak1 20:17 Follow up: IV Status: Completed infusion ak1 20:23 Drug: Aspirin Chewable Tablet 162 mg Route: PO; ak1 20:33 Follow up: Response: No adverse reaction ak1 20:32 Drug: Rocephin - (cefTRIAXone) 1 grams Route: IVPB; Infused Over: 30 mins; Site: right ak1 wrist; 20:33 Follow up: IV Status: Completed infusion ak1 20:33 Drug: Ativan 0.5 mg Route: IVP; Site: right wrist; ak1 20:33 Follow up: Response: No adverse reaction ak1 Disposition: 05/09/18 19:56 Hospitalization ordered by Diego Vaughan for Observation. Preliminary diagnosis are Weakness, Unspecified kidney failure, Anemia, unspecified, Urinary tract infection, site not specified. - Bed requested for Telemetry/MedSurg (observation). - Status is Observation. ak1 - Condition is Stable. - Problem is new. - Symptoms have improved. UTI on Admission? Yes NIH Stroke Scale - NIH Stroke Score Date: 05/09/2018 Time: 17:38 Total Score = 0 1a. Level of Consciousness (LOC) - 0(Alert) 1b. Level of Consciousness (LOC) (Year \T\ Age) - 0(Both) 1c. LOC Commands (Open \T\ Closes Eyes/Home Restoration Service Supervisor) - 0(Both) 2. Best Gaze (Lateral Gaze Paresis) - 0(Normal) 3. Visual Field Loss - 0(No visual loss) 4. Facial Palsy - 0(Normal) 5a. Left Arm: Motor (10-second hold) - 0(No drift) 5b. Right Arm: Motor (10-second hold) - 0(No drift) 6a. Left Leg: Motor (5-second hold - always test supine) - 0(No drift) 6b. Right Leg: Motor (5-second hold - always test supine) - 0(No drift) 7. Limb Ataxia (finger/nose \T\ heel/chapa - test with eyes open) - 0(Absent) 8. Sensory Loss (pinprick arms/legs/face) - 0(Normal) 9. Best Language: Aphasia (description/naming/reading) - 0(No aphasia) 10. Dysarthria (speech clarity - read or repeat words) - 0(Normal) 11. Extinction and Inattention (visual/tactile/auditory/spatial/personal) - 0(No abnormality) Initials: sarah Signatures: Dispatcher [employer] EDHollie Sam RN RN ch Anderson, Corey, MD MD cha Guevara, Jazmin ms PatelbambiWilma, YOSVANY RN ak1 Johanna West RN tl2 Corrections: (The following items were deleted from the chart) 17:48 17:38 MR STROKE PROTOCOL+MRI.RAD.BRZ ordered. EDSC EDSC 20:27 19:56 Hospitalization Ordered by Diego Vaughan MD for Observation. Preliminary sarah diagnosis is Weakness; Unspecified kidney failure; Anemia, unspecified. Bed requested for Telemetry/MedSurg (observation). Status is Observation. Condition is Stable. Problem is new. Symptoms have improved. UTI on Admission? No. [facility] 21:15 20:27 05/09/2018 19:56 Hospitalization Ordered by Diego Vaughan MD for ms Observation. Preliminary diagnosis is Weakness; Unspecified kidney failure; Anemia, unspecified; Urinary tract infection, site not specified. Bed requested for Telemetry/MedSurg (observation). Status is Observation. Condition is Stable. Problem is new. Symptoms have improved. UTI on Admission? Yes. [facility] 22:10 21:15 05/09/2018 19:56 Hospitalization Ordered by Diego Vaughan MD for ak1 Observation. Preliminary diagnosis is Weakness; Unspecified kidney failure; Anemia, unspecified; Urinary tract infection, site not specified. Bed requested for Telemetry/MedSurg (observation). Status is Observation. Condition is Stable. Problem is new. Symptoms have improved. UTI on Admission? Yes. ms
--- NOTE | 2018-05-09 19:57 | ER ---
Nurse's Notes [facility] Name: Alberto Botello Age: 67 yrs Sex: Female : 1950 Arrival Date: 05/09/2018 Time: 17:[address] Private MD: Alis Jamison H Diagnosis: Weakness;Unspecified kidney failure;Anemia, unspecified;Urinary tract infection, site not specified Presentation: 05/09 17:14 Presenting complaint: Patient states: numbness, tingling, shaking to L side of body with headache, started yesterday, continued today. feels very dizzy. Transition of care: patient was not received from another setting of care. Onset of symptoms was May 08, 2018 at 21:00. Risk Assessment: Do you want to hurt yourself or someone else? Patient reports no desire to harm self or others. Initial Sepsis Screen: Does the patient meet any 2 criteria? No. Patient's initial sepsis screen is negative. Does the patient have a suspected source of infection? No. Patient's initial sepsis screen is negative. Care prior to arrival: None. 17:14 Method Of Arrival: Wheelchair 17:14 Acuity: ART 3 Triage Assessment: 17:16 Headache History: The patient has had previous headaches and this one is different than previous episodes. General: Appears in no apparent distress. uncomfortable, Behavior is calm, cooperative, appropriate for age. Pain: Complains of pain in head Pain. 18:24 Pain: Pain began 1 day ago. Also complains of headache. tw2 Historical: - Allergies: 17:16 No Known Allergies; - Home Meds: 17:16 alprazolam 2 mg Oral tab nightly [Active]; lisinopril 10 mg Oral tab 1 tab once daily [Active]; Meclizine Oral [Active]; meloxicam Oral [Active]; metformin 850 mg Oral tab daily [Active]; Ranitidine Oral [Active]; trazodone 100 mg Oral tab 1 tab [Active]; - PMHx: 17:16 Chronic pain; Diabetes - NIDDM; Hepatitis; Hypertension; Osteoporosis; Pancreatitis; ch - PSHx: 17:16 Hysterectomy; Appendectomy; - Immunization history:: Adult Immunizations up to date. - Social history:: Smoking status: Patient/guardian denies using tobacco. - Ebola Screening: : Patient negative for fever greater than or equal to 101.5 degrees Fahrenheit, and additional compatible Ebola Virus Disease symptoms Patient denies exposure to infectious person Patient denies travel to an Ebola-affected area in the 21 days before illness onset No symptoms or risks identified at this time. - Family history:: not pertinent. Screenin:23 Abuse screen: Denies threats or abuse. Nutritional screening: No deficits noted. tw2 Tuberculosis screening: No symptoms or risk factors identified. Fall Risk None identified. Assessment: 17:20 General: Appears in no apparent distress. Behavior is calm, cooperative, appropriate tw2 for age. Pain: Complains of pain in head. Neuro: Level of Consciousness is awake, alert, obeys commands, Oriented to person, place. Neuro: Reports dizziness, numbness. Cardiovascular: Heart tones S1 S2 Patient's skin is warm and dry. Respiratory: Airway is patent Respiratory effort is even, unlabored, Respiratory pattern is regular, symmetrical, Breath sounds are clear bilaterally. GI: No signs and/or symptoms were reported involving the gastrointestinal system. : No signs and/or symptoms were reported regarding the genitourinary system. EENT: No signs and/or symptoms were reported regarding the EENT system. Derm: Skin is intact, is fragile, is thin, Skin temperature is warm. Musculoskeletal: Range of motion: intact in all extremities. 18:41 Reassessment: pt is in CT and then will be transferred to MRI, pt not available for VS, tw2 or IV fluids or Folic acid administration at this time. Vital Signs: 17:16 BP 119 / 72; Pulse 113; Resp 22; Temp 97.8; Pulse Ox 99% on R/A; Weight 50.8 kg; Height ch 5 ft. (152.40 cm); Pain 8/10; 20:35 BP 120 / 95; Pulse 77; Resp 16; Temp 97.9; Pulse Ox 98% on R/A; Pain 0/10; ak1 21:19 BP 131 / 71; Pulse 70; Resp 18; Temp 97.9; Pulse Ox 98% on R/A; Pain 0/10; ak1 17:16 Body Mass Index 21.87 (50.80 kg, 152.40 cm) NIH Stroke Scale Scores: 17:38 NIHSS Score: 0 [facility] ED Course: 17:09 Patient arrived in ED. sb2 17:09 Alis Jamison DO is Private Physician. sb2 17:15 Triage completed. 17:16 Arm band placed on left wrist. Patient placed in an exam room, on a stretcher. 17:20 Bed in low position. Call light in reach. Side rails up X2. Adult w/ patient. Cardiac tw2 monitor on. Pulse ox on. NIBP on. Warm blanket given. 17:28 Rob Galo MD is Attending Physician. [facility] 18:03 EKG done, by process control tech. reviewed by Rob Galo MD. sm3 18:07 XRAY Chest (1 view) In Process Unspecified. EDMS 18:11 Joana Knight RN is Primary Nurse. tw2 18:11 Inserted saline lock: 24 gauge in right forearm, using aseptic technique. Blood tw2 collected. Missed attempt(s): 22 gauge in left forearm. Bleeding controlled, band aid applied, catheter tip intact. 18:20 CT Head Brain wo Cont In Process Unspecified. EDMS 18:22 CT completed. Patient tolerated procedure well. Patient moved to MRI. jg6 18:54 Report given to YOSVANY Dillon. tw2 19:19 Brain Wo Cont In Process Unspecified. EDMS 19:30 Primary Nurse role handed off by Joana Knight RN ak1 19:55 Diego Vaughan MD is Hospitalizing Provider. [facility] 20:08 Wilma Arellano, YOSVANY is Primary Nurse. ak1 20:37 Assisted to bathroom. ak1 21:19 No provider procedures requiring assistance completed. Patient admitted, IV remains in ak1 place. Administered Medications: 20:16 Drug: NS 0.9% 1000 ml Route: IV; Rate: 1 bolus; Site: right wrist; ak1 21:20 Follow up: IV Status: Infusion continued upon admission ak1 22:04 Follow up: IV Status: Completed infusion; IV Intake: 1000ml tl2 20:16 Drug: foLIC Acid 1 mg Route: IVPB; Site: right wrist; ak1 20:17 Follow up: IV Status: Completed infusion ak1 20:23 Drug: Aspirin Chewable Tablet 162 mg Route: PO; ak1 20:33 Follow up: Response: No adverse reaction ak1 20:32 Drug: Rocephin - (cefTRIAXone) 1 grams Route: IVPB; Infused Over: 30 mins; Site: right ak1 wrist; 20:33 Follow up: IV Status: Completed infusion ak1 20:33 Drug: Ativan 0.5 mg Route: IVP; Site: right wrist; ak1 20:33 Follow up: Response: No adverse reaction ak1 Intake: 22:04 IV: 1000ml; Total: 1000ml. tl2 Outcome: 19:56 Decision to Hospitalize by Provider. sarah 21:20 Condition: stable ak1 21:20 Instructed on the need for admit. 21:53 Admitted to Med/surg accompanied by tech, family with patient, via stretcher, with ak1 chart, Report called to Bethanie vides for 424 22:10 Patient left the ED. ak1 NIH Stroke Scale - NIH Stroke Score Date: 05/09/2018 Time: 17:38 Total Score = 0 1a. Level of Consciousness (LOC) - 0(Alert) 1b. Level of Consciousness (LOC) (Year \T\ Age) - 0(Both) 1c. LOC Commands (Open \T\ Closes Eyes/Tie In Machine Operator) - 0(Both) 2. Best Gaze (Lateral Gaze Paresis) - 0(Normal) 3. Visual Field Loss - 0(No visual loss) 4. Facial Palsy - 0(Normal) 5a. Left Arm: Motor (10-second hold) - 0(No drift) 5b. Right Arm: Motor (10-second hold) - 0(No drift) 6a. Left Leg: Motor (5-second hold - always test supine) - 0(No drift) 6b. Right Leg: Motor (5-second hold - always test supine) - 0(No drift) 7. Limb Ataxia (finger/nose \T\ heel/chapa - test with eyes open) - 0(Absent) 8. Sensory Loss (pinprick arms/legs/face) - 0(Normal) 9. Best Language: Aphasia (description/naming/reading) - 0(No aphasia) 10. Dysarthria (speech clarity - read or repeat words) - 0(Normal) 11. Extinction and Inattention (visual/tactile/auditory/spatial/personal) - 0(No abnormality) Initials: sarah Signatures: Dispatcher [employer] EDHollie Sam RN RN ch Anderson, Corey, MD MD cha Krenek, Amber, RN RN ak1 Joana Knight RN RN tw2 Johanna West RN RN tl2 Priti Marcos sb2 Kaylee Mo 3 Hawa Portillo jg6 Corrections: (The following items were deleted from the chart) 17:18 17:14 Acuity: ART 2 ch
[2018-05-09] MEDS ORDERED: ASPIRIN 81 MG CHEWABLE TABLET ONE (20:23)
[2018-05-09] MEDS ORDERED: LORazepam 2 MG/ML VIAL ONE (20:33)
[2018-05-09] MEDS ORDERED: CEFTRIAXONE/SWI 1gm 1 GM/10 ML SYR ONE (20:33)
[2018-05-09 21:17] LABS: Urine Blood TRACE (NEG); Urine Glucose NEGATIVE (NEG); Urine Protein NEGATIVE (NEG); Urine pH 6.5 (5.0-7.0)
[2018-05-09] MEDS ORDERED: ONDANSETRON 4 MG/2 ML VIAL IV PRN (21:24)
[2018-05-09] MEDS ORDERED: MORPHINE *EXTENDED RELEASE* 15 MG TAB PO PRN (21:25)
[2018-05-09 23:26] VITALS: BMI 23.0
[2018-05-10] MEDS: NA CHLORIDE 0.9% 1,000 ML IV SCH ×2 (00:07→07:35)
[2018-05-10 04:14] LABS: Absolute Lymphocytes (CBC) 2.5 K/uL (0.7-4.9); Absolute Monocytes 0.7 K/uL (0.1-1.3); Absolute Neutrophil 7.3 K/uL (1.8-8.0); Basophils % 0.3 % (0-1.3); Eosinophils % 0.6 % (0-4.4); Hematocrit 30.3 % (36.0-45.0); MCH 31.3 pg (27.0-35.0); MCV 92.2 fL (80-100); MPV 7.7 fL (7.6-11.3); Monocytes % 6.3 % (3.3-12.3); RBC Red Blood Cell Count 3.29 M/uL (3.86-4.86)
[2018-05-10 04:38] LABS: Albumin 3.2 g/dL (3.4-5.0); Bilirubin Total 0.2 mg/dL (0.2-1.0); Potassium 4.2 mmol/L (3.5-5.1); Protein, Total 7.3 g/dL (6.4-8.2)
[2018-05-10 04:45] VITALS: TEMP 97.8
--- NOTE | 2018-05-10 07:59 | P.HP ---
Certification for Inpatient Patient admitted to: Observation With expected LOS: <2 Midnights Patient will require the following post-hospital care: None Practitioner: I am a practitioner with admitting privileges, knowledge of patient current condition, hospital course, and medical plan of care. Services: Services provided to patient in accordance with Admission requirements found in Title 42 Section 412.3 of the Code of Federal Regulations Patient History Date of Service: 05/09/18 Reason for admission: Generalized weakness History of Present Illness: Patient is a 67-year-old female who presents to the hospital with generalized weakness and tremors. Patient has some shakiness and weakness to the left side of her body. Patient had some shakes of her hands as well. She was brought into the emergency room for further evaluation. In the ER she had an MRI of the brain which did not reveal any abnormalities. Patient been admitted in the past with abdominal pain. She takes high-dose narcotics. Patient was worked up in the emergency room and she was found have a urinary tract infection. She also has some acute renal insufficiency. She has been given IV hydration and IV antibiotics. If her symptoms have improved then she may be able to be discharged in the morning Allergies No Known Allergies Allergy (Verified 12/26/15 07:13) Home Medications: Lisinopril [Prinivil*] 10 mg PO ONCE 06/13/17 Metformin HCl [Glucophage*] 425 mg PO BID 06/13/17 Morphine *Extended Release* [MS Contin*] 30 mg PO TIDP PRN 06/13/17 Eszopiclone [Lunesta*] 1 mg PO BEDTIME 05/09/18 Linaclotide [Linzess] 72 mcg PO PRN 05/09/18 - Past Medical/Surgical History Has patient received pneumonia vaccine in the past: Yes Diabetic: Yes -: chronic headache -: hepatitis c -: chronic pain -: pelvic & Lumbar spine compression fracture 01/2015 -: neuropathy -: pancreatitis -: hysterectomy, cholecystectomy -: bile duct stent -: kyphoplasty - Family History Mother Notes: no history Father Medical History: Heart disease, Lung disease, GI disease, Cancer - Social History Smoking Status: Never smoker Alcohol use: No CD- Drugs: No Caffeine use: Yes Review of Systems 10-point ROS is otherwise unremarkable Physical Examination - Vital Signs Temperature: 97.8 F Blood Pressure: 133/71 Pulse: 79 Respirations: 18 Pulse Ox (%): 100 - Physical Exam General: Alert, In no apparent distress, Oriented x3 HEENT: Atraumatic, PERRLA, Mucous membr. moist/pink, EOMI, Sclerae nonicteric Neck: Supple, 2+ carotid pulse no bruit, No LAD, Without JVD or thyroid abnormality Respiratory: Clear to auscultation bilaterally, Normal air movement Cardiovascular: Regular rate/rhythm, Normal S1 S2, No murmurs Gastrointestinal: Normal bowel sounds, Soft and benign, Non-distended, No tenderness Musculoskeletal: No clubbing, No swelling, No tenderness Integumentary: No rashes Neurological: Normal gait, Normal speech, Normal strength at 5/5 x4 extr, Normal tone, Sensation intact, Cranial nerves 3-12 intact, Normal affect Lymphatics: No axilla or inguinal lymphadenopathy - Studies Laboratory Data (last 24 hrs) 05/09/18 18:00: PT 10.9, INR 0.92, APTT 34.2 05/09/18 18:00: WBC 8.7, Hgb 11.2 L, Hct 32.9 L, Plt Count 289 05/09/18 18:00: Sodium 140, Potassium 4.7, BUN 33 H, Creatinine 1.50 H, Glucose 166 H, Magnesium 2.5 H, Total Bilirubin 0.1 L, AST 17, ALT 25, Alkaline Phosphatase 75, Lipase 260 Assessment & Plan - Problems (Diagnosis) (1) UTI (urinary tract infection) Current Visit: Yes Status: Acute (2) ESTUARDO (acute kidney injury) Current Visit: Yes Status: Acute (3) Abnormal renal function Onset Date: 06/13/17 Current Visit: No Status: Acute (4) Hypertension Onset Date: 12/26/15 Current Visit: No Status: Acute Qualifiers: (5) Hepatitis C Onset Date: 03/17/15 Current Visit: No Status: Chronic - Plan PLAN: 1. Continue with IV hydration 2. Continue with IV antibiotics 3. Continue with pain control 4. Physical therapy evaluation 5. Neurology consultation if his symptoms worsen 6. Check thyroid studies 7. GI and DVT prophylaxis Discharge Plan: Home Plan to discharge in: Greater than 2 days - Advance Directives Does patient have a Living Will: No Does patient have a Durable POA for Healthcare: No - Code Status/Comfort Care Code Status Assessed: Yes Code Status: Full Code Critical Care: No Time Spent Managing PTS Care (In Minutes): 50
--- NOTE | 2018-05-10 08:05 | P.DS ---
Discharge Date: 05/10/18 Disposition: ROUTINE DISCHARGE Discharge Condition: GOOD Reason for Admission: Generalized weakness - Problems (1) UTI (urinary tract infection) Onset Date: 05/10/18 Status: Acute (2) ESTUARDO (acute kidney injury) Onset Date: 05/10/18 Status: Acute (3) Abnormal renal function Onset Date: 06/13/17 Status: Acute (4) Hypertension Onset Date: 12/26/15 Status: Acute Qualifiers: (5) Hepatitis C Onset Date: 03/17/15 Status: Chronic Brief History of Present Illness: Patient is a 67-year-old female who presents to the hospital with generalized weakness and tremors. Patient has some shakiness and weakness to the left side of her body. Patient had some shakes of her hands as well. She was brought into the emergency room for further evaluation. In the ER she had an MRI of the brain which did not reveal any abnormalities. Patient been admitted in the past with abdominal pain. She takes high-dose narcotics. Patient was worked up in the emergency room and she was found have a urinary tract infection. She also has some acute renal insufficiency. She has been given IV hydration and IV antibiotics. If her symptoms have improved then she may be able to be discharged in the morning Hospital Course: Patient's MRI of her brain was negative. Patient's tremors improved off of Lunesta. She had taken trazodone and became very lethargic. On the Lunesta she had tremors. At this time will hold off on any medication that helps her sleep. She will need outpatient follow-up in 1-2 weeks. I have advised her to use melatonin as well as her other sleeping medicine that she use in the past. She is stable for discharge. She will need outpatient follow-up. She did well with physical therapy using a walker. At this time patient is stable for discharge home. Vital Signs/Physical Exam: Temp Pulse Resp BP Pulse Ox 97.8 F 79 18 133/71 100 05/10/18 08:00 05/10/18 08:00 05/10/18 08:00 05/10/18 08:00 05/10/18 08:00 General: Alert, In no apparent distress, Oriented x3 Laboratory Data at Discharge: WBC 10.5 K/uL (4.3-10.9) D 05/10/18 03:45 Hgb 10.3 g/dL (12.0-15.0) L 05/10/18 03:45 Hct 30.3 % (36.0-45.0) L 05/10/18 03:45 Plt Count 272 K/uL (152-406) 05/10/18 03:45 PT 10.9 SECONDS (9.5-12.5) 05/09/18 18:00 INR 0.92 05/09/18 18:00 APTT 34.2 SECONDS (24.3-36.9) 05/09/18 18:00 Sodium 141 mmol/L (136-145) 05/10/18 03:45 Potassium 4.2 mmol/L (3.5-5.1) 05/10/18 03:45 BUN 28 mg/dL (7-18) H 05/10/18 03:45 Creatinine 1.30 mg/dL (0.55-1.3) 05/10/18 03:45 Glucose 155 mg/dL (74-106) H 05/10/18 03:45 Magnesium 2.5 mg/dL (1.8-2.4) H 05/09/18 18:00 Total Bilirubin 0.2 mg/dL (0.2-1.0) 05/10/18 03:45 AST 17 U/L (15-37) 05/10/18 03:45 ALT 18 U/L (12-78) 05/10/18 03:45 Alkaline Phosphatase 58 U/L (45-117) 05/10/18 03:45 Lipase 260 U/L (73-393) 05/09/18 18:00 Home Medications: Lisinopril [Prinivil*] 10 mg PO ONCE 06/13/17 Metformin HCl [Glucophage*] 425 mg PO BID 06/13/17 Morphine *Extended Release* [MS Contin*] 30 mg PO TIDP PRN 06/13/17 Eszopiclone [Lunesta*] 1 mg PO BEDTIME 05/09/18 Linaclotide [Linzess] 72 mcg PO PRN 05/09/18 Cefdinir [Omnicef] 300 mg PO BID #14 capsule 05/10/18 New Medications: Cefdinir [Omnicef] 300 mg PO BID #14 capsule Patient Discharge Instructions: OK TO DC IV AND DC HOME. FOLLOW-UP WITH PRIMARY CARE PROVIDER IN 1-2 WEEKS. FOLLOW-UP WITH A NEUROLOGIST IN 1-2 WEEKS( DR. THIBODEAUX). RETURN TO THE ER IF symptoms worsen. CALL or TEXT DR. ASHRAF AT [phone] IF ANY QUESTIONS REGARDING HOSPITAL STAY. PLEASE CALL THE FLOOR AT [phone] IF ANY MEDICATION OR NURSING QUESTIONS. Diet: AHA Activity: Fall precautions Followup: Miguel Thibodeaux MD [ASSOCIATE-ACTIVE - CAN ADMIT] - 1-2 Weeks (Follow up in office in 1-2 weeks. Call to schedule an appointment. ) Time spent managing pt's care (in minutes): 30
[2018-05-10 08:29] LABS: Thyroid Stimulating Hormone 0.68 uIU/mL (0.36-3.74)
[2018-05-10] MEDS ORDERED: LISINOPRIL 10 MG TAB PO SCH (09:00)
[2018-05-10] MEDS ORDERED: PANTOPRAZOLE 40MG TABLET PO SCH (09:00)
[2018-05-10 09:22] VITALS: BP 164/79
[2018-05-10 11:03] VITALS: O2SAT 100
--- NOTE | 2018-05-10 16:19 | EKG ---
Test Date: 2018-05-09 Test Time: 17:51:01 [place] Machine Operator: MICKI MEASUREMENT RESULTS: Intervals: Rate: 91 OR: 140 QRSD: 80 QT: 362 QTc: 445 [place]: P: 46 OR: 140 QRS: 49 T: 59 INTERPRETIVE STATEMENTS: Normal sinus rhythm Nonspecific T wave abnormality Abnormal ECG Compared to ECG 05/02/2018 01:06:02 T-wave abnormality now present ST (T wave) deviation no longer present Possible ischemia no longer present Electronically Signed On 05-10-18 16:14:49 CDT by Darrin Saldaña
[2018-05-10] MEDS ORDERED: ALPRAZOLAM 1 MG TABLET PO SCH (21:00)
== END 2018-05-10 11:40 | disposition home or self-care (01) ==
LOC: ER 17:08 → ERHOLD 20:12 → 4TH 21:43
PROVIDERS: ADMIT Hospitalist; ATTEND Hospitalist
DX: N39.0 Urinary tract infection, site not specified (principal); N17.9 Acute kidney failure, unspecified; I10 Essential (primary) hypertension; B18.2 Chronic viral hepatitis C; R94.4 Abnormal results of kidney function studies
CPT/HCPCS: 36415; 70450; 70551; 71045; 80048; 80053; 80076; 81003; 82550; 82553; 83690; 83735; 83880; 84439; 84443; 84484; 85025 ×2; 85610; 85730; 87086; 87088; 93005; 96361; 96374; 96375; 97163; 99285; G0378 ×2; J0696; J7030 ×3

== ENCOUNTER 2018-06-13 16:38 | Emergency (ER) | payer OTHER ==
--- OUTSIDE RECORDS SUMMARY | 2018-06-13 16:41 | XMS REPORT | Continuity of Care Document ---
:1950 Author Organization Interface Problems Problem Status Onset Classification Date Comments Source Date Reported R51 - HEADACHE Active 02/04/20 [facility] R51.- HEADACHE Active 02/04/20 [facility] MILD STEATOSIS Active 03/23/[address] BDDC - F/U Active 12/08/[address] R10.9 - Active 12/04/19 [facility] UNSPECIFIED [address] [place] [address] ABDOMINAL PAIN FOLLOW UP Active 11/28/[address] STOMACH PAIN Active 11/14/19 [facility] SELF [address] [place] [address] REFERRAL Anxiety Active Problem 03/26/2016 [facility] [place] Chronic Active Problem 03/26/2016 [facility] hepatitis C [place] Depression Active Problem 03/26/2016 [facility] [place] Gallstones Active Problem 03/26/2016 [facility] [place] HBP - High Active Problem 03/26/2016 [facility] blood pressure [place] Abdominal pain Active Problem 02/11/2018 [facility], [facility] Anxiety Active Problem 02/11/2018 [facility] [place], [facility] Chronic Active Problem 02/11/2018 [facility] hepatitis C [place], [facility] Depression Active Problem 02/11/2018 [facility] [place], [facility] Gallstones Active Problem 02/11/2018 [facility] [place], [facility] HBP - High Active Problem 02/11/2018 [facility] blood pressure [place], [facility] MEDICAL Active [facility] SERVICES NOT Medical Center AVAILABLE IN HOME ALCOHOLIC FATTY Active [facility] LIVER Medical Center OTHER Active [facility] CONGENITAL DEFORMITIES FATTY (CHANGE Active [facility]) LIVER, NOT Medical Center ELSEWHERE C Medications Medication Details Route Status Patient Ordering Order Source Instructions Provider Date linaclotide 0.145 145 Active [place] [facility] Oral Capsule microgram= 016 Medical [Linzess] 1 cap, PO, Center Daily, 30 minutes prior to the first meal of the day, # 30 cap, 0 Refill(s) oxybutynin 15 mg 15 mg=1 Active [facility] oral tablet, tab, PO, 016 Medical extended release Daily, # Center 30 tab, 0 Refill(s) lubiprostone 0.008 8 Active [facility] MG Oral Capsule microgram= 016 Medical [Amitiza] 1 cap, PO, Center BID, # 60 tab, 0 Refill(s) linaclotide 0.145 145 Active [facility] MG Oral Capsule microgram= 016 Medical [...] Refill(s) ranitidine 300 mg 300 mg=1 Active [facility] oral tablet tab, PO, 016 Medical Bedtime, # Center 30 tab, 0 Refill(s) lisinopril 5 mg 5 mg=1 Active [facility] oral tablet tab, PO, 016 Medical Daily, # Center 30 tab, 0 Refill(s) Metoclopramide 5 5 mg=1 Active [facility] MG Oral Tablet tab, PO, 016 Medical BID, 0 Center Refill(s) Alprazolam 2 MG 2 mg=1 Active [facility] Oral Tablet tab, PO, 016 Medical Daily, PRN Center Anxiety, 0 Refill(s) dexlansoprazole 60 60 mg=1 Active [place] [facility] Enteric Coated cap, PO, 016 Medical Capsule [Dexilant] Daily, # Center 30 day, 0 Refill(s) morphine 30 mg 30 mg=1 Active [facility] oral tablet tab, PO, 016 Medical Q4H, PRN Center Pain, 0 Refill(s) Allergies, Adverse Reactions, Alerts Substance Category Reaction Severity Reaction Status Date Comments Source type Reported NKDA Assertion Drug Active [facility] allergy [facility] Immunizations Immunization Date Given Site Status Last Updated Comments Source Results Order Results Value Reference Date Interpretation Comments Source Name Range Brain wo Brain wo Patient Name: RIYA LUNA 02/08 - [facility] contrast contrast /2017 - [facility] MRI MRI : 1950. Age: 67 years. Gender: Female. MR: [id number]. Location: [facility]. Provider: Hollie Osorio [...] abnormality. Mild chronic microangiopathic ischemic gliosis. SL: [id number] Abdomen Abdomen PROCEDURE: MAGNETIC RESONANCE CHOLANGIOPANCREATOGRAPHY - [facility] wo wo /2015 - [place] contrast contrast MRI MRI CLINICAL INDICATION: R10.9 [...] THE ABDOMEN - WILLD w/wo w/wo - [place] contrast contrast MRI MRI REASON FOR EXAM: [...] Comments Source Systolic (mm Hg) 121 12/16/2015 [facility] Diastolic (mm Hg) 75 12/16/2015 [facility] Weight 57.273 12/16/2015 [facility] Height 152.4 cm 12/16/2015 [facility] Respitory Rate 92 12/16/2015 [facility] BMI Calculated 24.66 12/16/2015 [facility] BMI Calculated 24.46 12/02/2015 [facility] Weight 56.818 12/02/2015 [facility] Height 152.4 cm 12/02/2015 [facility] Systolic (mm Hg) 125 12/02/2015 [facility] Diastolic (mm Hg) 79 12/02/2015 [facility] Respitory Rate 86 12/02/2015 [facility] Systolic (mm Hg) 134 11/24/2015 [facility] Diastolic (mm Hg) 87 11/24/2015 [facility] Height 180.34 cm 11/24/2015 [facility] Heart Rate 84 11/24/2015 [facility] BMI Calculated 17.61 11/24/2015 [facility] Weight 57.273 11/24/2015 [facility] Encounters Location Location Encounter Encounter Reason Attending ADM DC Status Source Details Type Number For Provider Date Date Visit [facility] Outpatient [id number] [place] 11/23 11/24 [facility] Out[facility] [id number] [place] 12/01 [facility] [id number] [place] 12/10 12/11 [facility] [place] [facility] Outpatient [id number] Julien 12/15 12/16 [facility] [id number] Julien 03/23 03/24 [facility] Outpatient [id number] Julien 03/23 03/24 [facility] [id number] Hollie 02/08 02/09 [facility] Procedures Procedure Code Date Perfomer Comments Source Biopsy of liver 43596492 [facility] [place] Cataract surgery [id number] [facility] [place] Colonoscopy [id number] [facility] [place] Endoscopy [id number] [facility] [place] Hysterectomy [id number] [facility] [place] Ultrasound [id number] [facility] [place] Biopsy of liver 05246255 [facility] Cataract surgery [id number] [facility] Colonoscopy 09320617 [facility] Endoscopy [id number] [facility] Hysterectomy [id number] [facility] Ultrasound [id number] [facility] MRI of abdomen 208353602 [facility] MRI of kidneys 035419685 [facility] Biopsy of liver 96885446 [facility] Cataract surgery [id number] [facility] Colonoscopy [id number] [facility] Endoscopy [id number] [facility] Hysterectomy [id number] [facility] MRI of abdomen [id number] [facility] MRI of kidneys [id number] [facility] Ultrasound [id number] [facility]
[2018-06-13 19:38] LABS: Absolute Lymphocytes (CBC) 2.4 K/uL (0.7-4.9); Absolute Monocytes 0.6 K/uL (0.1-1.3); Absolute Neutrophil 6.2 K/uL (1.8-8.0); Basophils % 0.2 % (0-1.3); Eosinophils % 0.8 % (0-4.4); Hematocrit 34.2 % (36.0-45.0); Lymphocytes % 26.1 % (15.3-44.8); MCH 31.3 pg (27.0-35.0); MCV 93.1 fL (80-100); Monocytes % 6.8 % (3.3-12.3); RBC Red Blood Cell Count 3.68 M/uL (3.86-4.86)
[2018-06-13] MEDS ORDERED: ONDANSETRON 4 MG/2 ML VIAL ONE (20:00)
[2018-06-13] MEDS ORDERED: NA CHLORIDE 0.9% 1,000 ML ONE (20:00)
[2018-06-13] MEDS ORDERED: MORPHINE 4 MG/ML SYR ONE (20:00)
[2018-06-13 20:16] LABS: Urine Blood TRACE (NEG); Urine Glucose NEGATIVE (NEG); Urine Protein NEGATIVE (NEG); Urine Specific Gravity <1.005 (1.005-1.030)
[2018-06-13 20:31] LABS: ALT/SGPT 26 U/L (12-78); AST/SGOT 32 U/L (15-37); Albumin 3.8 g/dL (3.4-5.0); Alkaline Phosphatase 64 U/L (45-117); BUN Blood Urea Nitrogen 23 mg/dL (7-18); Bicarbonate 21 mmol/L (21-32); Bilirubin Direct < 0.1 mg/dL (0-0.2); Glucose Level 87 mg/dL (74-106); Lipase 236 U/L (73-393); Potassium 4.2 mmol/L (3.5-5.1); Protein, Total 8.9 g/dL (6.4-8.2); Sodium Level 138 mmol/L (136-145)
[2018-06-13 20:32] LABS: Bilirubin Total < 0.1 mg/dL (0.2-1.0)
--- NOTE | 2018-06-13 21:04 | RAD REPORT ---
EXAM DESCRIPTION: CTAbdomen Pelvis W Contrast - 06/13/2018 8:54 pm CLINICAL HISTORY: Abdominal pain. right flank pain COMPARISON: CT ABD PELVIS W CONTRAST dated 10/31/2015; CT ABD PELVIS W CONTRAST dated 10/13/2015; CT AB D PELVIS W CONTRAST dated 10/11/2015; CT ABD PELVIS W CONTRAST dated 08/09/2015 TECHNIQUE: Biphasic CT imaging of the abdomen and pelvis was performed with 100 ml non-ionic IV cont rast. All CT scans are performed using dose optimization technique as appropriate and may include automated exposure control or mA/KV adjustment according to patient size. FINDINGS: The lung bases are clear.A small hiatal hernia. The liver, spleen, pancreas, adrenal glands and kidneys are within normal limits. Cholecystectomy cli ps with pneumobilia noted. Common bile duct appears mildly prominent measuring 11 mm. No bowel obstruction, free air, free fluid or abscess. The appendix is not identified as a discrete structure, however, no secondary findings of appendicitis are identified. No evidence of significan t lymphadenopathy. Moderate lumbosacral degenerative changes. Compression deformity affects L1 with vertebroplasty cemen t in place. IMPRESSION: No acute intra-abdominal or pelvic finding. Cholecystectomy with pneumobilia and mild prominence of the common bile duct to 11 mm.
--- NOTE | 2018-06-13 21:41 | EDPHYS ---
Physician Documentation [facility] Name: Alberto Botello Age: 67 yrs Sex: Female : 1950 Arrival Date: 06/13/2018 Time: 16:42 Bed 12 Private MD: Alis Jamison H ED Physician Diego Patterson HPI: 06/13 17:23 This 67 yrs old Female presents to ER via Wheelchair with complaints of Low Back Pain. ma2 17:23 The patient presents with pain that is acute, and decreased range of motion. The ma2 symptoms are located in the right flank. The pain does not radiate. Onset: The symptoms/episode began/occurred gradually, 2 day(s) ago. Associated signs and symptoms: The patient has no apparent associated signs or symptoms, Pertinent positives: Pertinent negatives: abdominal pain, dysuria, fever, hematuria, numbness, tingling, vomiting. Severity of symptoms: At their worst the symptoms were severe, in the emergency department the symptoms are unchanged. The patient has not experienced similar symptoms in the past. Historical: - Allergies: 17:06 No Known Allergies; aj1 - Home Meds: 17:06 alprazolam 2 mg Oral tab nightly [Active]; lisinopril 10 mg Oral tab 1 tab once daily aj1 [Active]; Meclizine Oral [Active]; meloxicam Oral [Active]; metformin 850 mg Oral tab daily [Active]; Ranitidine Oral [Active]; trazodone 100 mg Oral tab 1 tab [Active]; morphine 30 mg Oral CM24 1 cap once daily [Active]; - PMHx: 17:06 Chronic pain; Diabetes - NIDDM; Hepatitis; Hypertension; Osteoporosis; Pancreatitis; aj1 - Immunization history:: Flu vaccine is not up to date. - Social history:: Smoking status: Patient/guardian denies using tobacco, Patient/guardian denies using alcohol, street drugs, The patient lives with family. - Ebola Screening: : Patient denies travel to an Ebola-affected area in the 21 days before illness onset. - Family history:: not pertinent. ROS: 17:23 Constitutional: Negative for fever, chills, and weight loss, Cardiovascular: Negative ma2 for chest pain, palpitations, and edema, Respiratory: Negative for shortness of breath, cough, wheezing, and pleuritic chest pain, Abdomen/GI: Negative for abdominal pain, nausea, diarrhea, and constipation. 17:23 Back: Positive for decreased range of motion, flank pain. 17:23 All other systems are negative. Exam: 17:23 Head/Face: Normocephalic, atraumatic. Neck: Trachea midline, no thyromegaly or masses ma2 palpated, and no cervical lymphadenopathy. Supple, full range of motion without nuchal rigidity, or vertebral point tenderness. No Meningismus. Chest/axilla: Normal chest wall appearance and motion. Nontender with no deformity. No lesions are appreciated. Cardiovascular: Regular rate and rhythm with a normal S1 and S2. No gallops, murmurs, or rubs. Normal PMI, no JVD. No pulse deficits. Respiratory: Lungs have equal breath sounds bilaterally, clear to auscultation and percussion. No rales, rhonchi or wheezes noted. No increased work of breathing, no retractions or nasal flaring. Skin: Warm, dry with normal turgor. Normal color with no rashes, no lesions, and no evidence of cellulitis. MS/ Extremity: Pulses equal, no cyanosis. Neurovascular intact. Full, normal range of motion. 17:23 Abdomen/GI: Inspection: abdomen appears normal, Palpation: severe abdominal tenderness, in the posterior aspect of right lateral abdomen, right upper quadrant and right lower quadrant, Hernia: not appreciated. Vital Signs: 17:06 BP 118 / 83; Pulse 95; Resp 18; Temp 98.3(TE); Pulse Ox 97% on R/A; Weight 60.78 kg aj1 (R); Pain 10/10; 19:35 BP 138 / 84; Pulse 83; Resp 16 S; Temp 97.5(TE); Pulse Ox 97% on R/A; Pain 7/10; bb 21:40 BP 128 / 77; Pulse 84; Resp 16 S; Temp 99.5(TE); Pulse Ox 97% on R/A; Pain 3/10; bb MDM: 17:08 Patient medically screened. ma2 17:23 Differential diagnosis: arthritis, strain, fracture, sciatica, contusion, Herniated ma2 disc UTI. 21:35 Counseling: I had a detailed discussion with the patient and/or guardian regarding: the ma2 historical points, exam findings, and any diagnostic results supporting the discharge/admit diagnosis, the presence of at least one elevated blood pressure reading (>120/80) during this emergency department visit, the need for outpatient follow up. Response to treatment: the patient's symptoms have markedly improved after treatment. 21:39 Data reviewed: vital signs, nurses notes, lab test result(s), radiologic studies, CT ma2 scan. 06/13 17:22 Order name: Basic Metabolic Panel; Complete Time: 21:34 ma2 06/13 17:22 Order name: CBC with Diff; Complete Time: 20:07 ma2 06/13 17:22 Order name: Creatinine for Radiology; Complete Time: 21:34 ma2 06/13 17:22 Order name: Hepatic Function; Complete Time: 21:34 ma2 06/13 17:22 Order name: Lipase; Complete Time: 21:34 ma2 06/13 17:48 Order name: Urine Dipstick--Ancillary (enter results); Complete Time: 21:34 bd 06/13 17:22 Order name: IV Saline Lock; Complete Time: 20:15 ma2 06/13 17:22 Order name: Labs collected and sent; Complete Time: 19:34 ma2 06/13 17:22 Order name: CT Abd/Pelvis - W/Contrast; Complete Time: 21:34 ma2 Administered Medications: 20:00 Drug: NS 0.9% 1000 ml Route: IV; Rate: 1 bolus; Site: right upper arm; bb 21:51 Follow up: IV Status: Order to discontinue infusion; IV Intake: 500ml bb 20:00 Drug: morphine 4 mg Route: IVP; Site: right upper arm; bb 21:41 Follow up: Response: No adverse reaction; Pain is decreased bb 20:00 Drug: Zofran 4 mg Route: IVP; Site: right upper arm; bb 21:41 Follow up: Response: No adverse reaction bb Disposition: 06/13/18 21:39 Discharged to Home. Impression: Low back pain. - Condition is Stable. - Discharge Instructions: Flank Pain, Adult. - Medication Reconciliation Form, Thank You Letter, Antibiotic Education, Prescription Opioid Use form. - Follow up: Private Physician; When: Tomorrow; Reason: Continuance of care. Signatures: Dis[facility] EDChing Stevens RN RN aj1 Iza Vines RN RN Diego Dale MD MD ma2 Corrections: (The following items were deleted from the chart) 21:50 21:39 06/13/2018 21:39 Discharged to Home. Impression: Low back pain. Condition is bb Stable. Forms are Medication Reconciliation Form, Thank You Letter, Antibiotic Education, Prescription Opioid Use. Follow up: Private Physician; When: Tomorrow; Reason: Continuance of care. ma2
--- NOTE | 2018-06-13 21:41 | ER ---
Nurse's Notes [facility] Name: Alberto Botello Age: 67 yrs Sex: Female : 1950 Arrival Date: 06/13/2018 Time: 16:42 Bed 12 Private MD: Alis Jamison H Diagnosis: Low back pain Presentation: 06/13 17:04 Presenting complaint: Child states: Lower back pain for the past week that has gotten aj1 progressively worse. Denies fever. Transition of care: patient was not received from another setting of care. Onset of symptoms was May 2018. Risk Assessment: Do you want to hurt yourself or someone else? Patient reports no desire to harm self or others. Initial Sepsis Screen: Does the patient meet any 2 criteria? No. Patient's initial sepsis screen is negative. Does the patient have a suspected source of infection? No. Patient's initial sepsis screen is negative. Care prior to arrival: None. 17:04 Method Of Arrival: Wheelchair aj1 17:04 Acuity: ART 4 aj1 Triage Assessment: 17:06 General: Appears in no apparent distress. uncomfortable, Behavior is calm, cooperative, aj1 appropriate for age. Pain: Complains of pain in back. Pain: Pain currently is 10 out of 10 on a pain scale. Neuro: Level of Consciousness is awake, alert, obeys commands. Cardiovascular: Patient's skin is warm and dry. Respiratory: Airway is patent Respiratory effort is even, unlabored, Respiratory pattern is regular, symmetrical. Historical: - Allergies: 17:06 No Known Allergies; aj1 - Home Meds: 17:06 alprazolam 2 mg Oral tab nightly [Active]; lisinopril 10 mg Oral tab 1 tab once daily aj1 [Active]; Meclizine Oral [Active]; meloxicam Oral [Active]; metformin 850 mg Oral tab daily [Active]; Ranitidine Oral [Active]; trazodone 100 mg Oral tab 1 tab [Active]; morphine 30 mg Oral CM24 1 cap once daily [Active]; - PMHx: 17:06 Chronic pain; Diabetes - NIDDM; Hepatitis; Hypertension; Osteoporosis; Pancreatitis; aj1 - Immunization history:: Flu vaccine is not up to date. - Social history:: Smoking status: Patient/guardian denies using tobacco, Patient/guardian denies using alcohol, street drugs, The patient lives with family. - Ebola Screening: : Patient denies travel to an Ebola-affected area in the 21 days before illness onset. - Family history:: not pertinent. Screenin:08 Abuse screen: Denies threats or abuse. Denies injuries from another. Nutritional ed1 screening: No deficits noted. Tuberculosis screening: No symptoms or risk factors identified. Fall Risk Fall in past 12 months (25 points). Secondary diagnosis (15 points) impaired mobility, No IV (0 pts). Ambulatory Aid- Crutches/Cane/Walker (15 pts). Gait- Weak (10 pts.). Mental Status- Oriented to own ability (0 pts). Total Huffman Fall Scale indicates High Risk Score (45 or more points). Fall prevention measures have been instituted. Side Rails Up X 2 Frequent Obs/Assessments Occuring Family Present and informed to notify staff if the need to leave the bedside As available patient and family educated on Fall Prevention Program and Strategies. Assessment: 17:08 General: Appears uncomfortable, Behavior is calm, cooperative. Pain: Complains of pain ed1 in low back area Pain radiates to abdomen Pain currently is 10 out of 10 on a pain scale. Quality of pain is described as sharp, Pain began 2-3 days ago. Neuro: Level of Consciousness is awake, alert, obeys commands, Oriented to person, place, time, situation. Cardiovascular: Heart tones S1 S2 present Chest pain is denied. Respiratory: Airway is patent Respiratory effort is even, unlabored, Respiratory pattern is regular, symmetrical, Breath sounds are clear bilaterally. GI: No signs and/or symptoms were reported involving the gastrointestinal system. : No signs and/or symptoms were reported regarding the genitourinary system. EENT: No signs and/or symptoms were reported regarding the EENT system. Derm: Skin is fragile, is thin, Skin is dry, Skin is normal, Skin temperature is warm. Musculoskeletal: Circulation, motion, and sensation intact. Range of motion: intact in all extremities, Reports pain in back. 17:15 General: The previous assessment is accurate, call light remains within reach. . ss 18:41 Reassessment: Pt finished oral contrast for CT. [place] in [place] notified. ed1 19:34 Reassessment: Patient and/or family updated on plan of care and expected duration. Pain bb level reassessed. Patient is alert, oriented x 3, equal unlabored respirations, skin warm/dry/pink. pt c/o pain to lower back 7/10. Notified Quita Pina RN of need for mid-line now at bedside for placement. 21:38 Reassessment: Patient and/or family updated on plan of care and expected duration. Pain bb level reassessed. Patient is alert, oriented x 3, equal unlabored respirations, skin warm/dry/pink. pt states she is feeling better. IV site intact, patent with fluids infusing, family at bedside. Dr Broussard at bedside for discussion of findings and recommendations pt to be discharged home and follow-up with PCP. Pt and family verbalized understanding of and agree to plan of care discharge instructions given. Vital Signs: 17:06 BP 118 / 83; Pulse 95; Resp 18; Temp 98.3(TE); Pulse Ox 97% on R/A; Weight 60.78 kg aj1 (R); Pain 10/10; 19:35 BP 138 / 84; Pulse 83; Resp 16 S; Temp 97.5(TE); Pulse Ox 97% on R/A; Pain 7/10; bb 21:40 BP 128 / 77; Pulse 84; Resp 16 S; Temp 99.5(TE); Pulse Ox 97% on R/A; Pain 3/10; bb ED Course: 16:42 Patient arrived in ED. rg4 16:42 Alis Jamison DO is Private Physician. rg4 17:05 Triage completed. aj1 17:06 Arm band placed on Patient placed in an exam room. aj1 17:08 Diego Patterson MD is Attending Physician. ma2 17:08 Patient has correct armband on for positive identification. Bed in low position. Call ed1 light in reach. Side rails up X 1. Adult w/ patient. 17:24 Akosua Ravi LVN is Primary Nurse. ed1 18:25 Missed attempt(s): 24 gauge in left antecubital area. ss 19:21 Initial lab(s) drawn, by me, sent to lab. Missed attempt(s): 20 gauge in right upper bb arm. Bleeding controlled, band aid applied, catheter tip intact. 19:38 Primary Nurse role handed off by Akosua Ravi LVN bb 19:38 Iza Vines, RN is Primary Nurse. bb 19:40 Inserted 18 gauge 8 cm midline to right upper basilic vein on first attempt. Line with good blood return and flushes well. 20:17 Radiology exam delayed due to lab results not completed at this time. (BUN/Creatinine). jg6 20:[address] jg6 20:54 CT Abd/Pelvis - W/Contrast In Process Unspecified. EDMS 21:41 No provider procedures requiring assistance completed. bb 21:50 IV discontinued, intact, bleeding controlled, No redness/swelling at site. Pressure bb dressing applied. Administered Medications: 20:00 Drug: NS 0.9% 1000 ml Route: IV; Rate: 1 bolus; Site: right upper arm; bb 21:51 Follow up: IV Status: Order to discontinue infusion; IV Intake: 500ml bb 20:00 Drug: morphine 4 mg Route: IVP; Site: right upper arm; bb 21:41 Follow up: Response: No adverse reaction; Pain is decreased bb 20:00 Drug: Zofran 4 mg Route: IVP; Site: right upper arm; bb 21:41 Follow up: Response: No adverse reaction bb Intake: 21:51 IV: 500ml; Total: 500ml. bb Outcome: 21:39 Discharge ordered by MD. lai 21:50 Discharged to home ambulatory, with family. bb 21:50 Condition: stable 21:50 Discharge instructions given to patient, family, Instructed on discharge instructions, follow up and referral plans. Demonstrated understanding of instructions, follow-up care. 21:50 Patient left the ED. bb Signatures: Dispatcher [employer] EDMS Ching Tucker RN RN Qiuta Avina RN RN fc Ballard, Brenda, RN RN bb Smirch, Shelby, RN RN Akosua Ravi LVN LVN ed1 Maria Ines Portillo Mohammad, MD MD ma2 Garcia, Jessica jg6
[2018-06-13 22:08] VITALS: O2SAT 97
[2018-06-13 22:10] VITALS: BP 128/77; TEMP 99.5
== END 2018-06-13 21:50 | disposition home or self-care (01) ==
LOC: ER 16:38
DX: M54.5 Low back pain (principal); I10 Essential (primary) hypertension; E11.9 Type 2 diabetes mellitus without complications
CPT/HCPCS: 36415; 74177; 80048; 80076; 81003; 83690; 85025; J2405; J7030; Q9967; 96361; 96374; 96375; 99284

== ENCOUNTER 2018-11-30 16:47 | Emergency (ER) | payer OTHER ==
--- OUTSIDE RECORDS SUMMARY | 2018-11-30 16:50 | XMS REPORT | Continuity of Care Document ---
:1950 Author Organization Interface Problems Problem Status Onset Classification Date Comments Source Date Reported R51 - HEADACHE Active 02/04/20 [facility] [place] R51.- HEADACHE Active 02/04/20 [facility] [place] MILD STEATOSIS Active 03/23/[address] BDDC - F/U Active 12/08/[address] R10.9 - Active 12/04/19 [facility] UNSPECIFIED [address] [place] [id number] ABDOMINAL PAIN FOLLOW UP Active 11/28/[address] STOMACH PAIN Active 11/14/19 [facility] SELF Medical Center REFERRAL Abdominal pain Active Problem 02/11/2018 [facility] [place],[facility] Anxiety Active Problem 02/11/2018 [facility], [facility] [place] Chronic Active Problem 02/11/2018 [facility] hepatitis C [facility] [place] Depression Active Problem 02/11/2018 [facility] Gallstones Active Problem 02/11/2018 [facility] [place] HBP - High Active Problem 02/11/2018 [facility] blood pressure [facility] [place] MEDICAL Active [facility] SERVICES NOT Medical Center AVAILABLE IN HOME ALCOHOLIC FATTY Active [facility] LIVER Medical Center OTHER Active [facility] SPECIFIED Medical Center CONGENITAL DEFORMITIES FATTY (CHANGE Active [facility] OF) LIVER, NOT Medical Center ELSEWHERE C Medications Medication Details Route Status Patient Ordering Order Source Instructions Provider Date linaclotide 0.145 145 Active [facility] MG Oral Capsule microgram= 016 Medical [Linzess] 1 cap, PO, Center Daily, 30 minutes prior to the first meal of the day, # 30 cap, 0 Refill(s) oxybutynin 15 mg 15 mg=1 Active [facility] oral tablet, tab, PO, 016 Medical extended release Daily, # Center 30 tab, 0 Refill(s) lubiprostone 0.008 8 Active [facility] MG Oral Capsule microgram= 016 Medical [Amitiza] 1 cap, PO, Center BID, # 60 tab, 0 Refill(s) linaclotide 0.145 145 Active [place] MG Oral [...] Refill(s) ranitidine 300 mg 300 mg=1 Active [place] oral tablet tab, PO, 016 Medical Bedtime, # Center 30 tab, 0 Refill(s) lisinopril 5 mg 5 mg=1 Active [place] oral tablet tab, PO, 016 Medical Daily, # Center 30 tab, 0 Refill(s) Metoclopramide 5 5 mg=1 Active [place] MG Oral Tablet tab, PO, 016 Medical BID, 0 Center Refill(s) Alprazolam 2 MG 2 mg=1 Active [place] Oral Tablet tab, PO, 016 Medical Daily, PRN Center Anxiety, 0 Refill(s) dexlansoprazole 60 60 mg=1 Active [place] MG Enteric Coated cap, PO, 016 Medical Capsule [Dexilant] Daily, # Center 30 day, 0 Refill(s) morphine 30 mg 30 mg=1 Active [place] oral tablet tab, PO, 016 Medical Q4H, PRN Center Pain, 0 Refill(s) Allergies, Adverse Reactions, Alerts Substance Category Reaction Severity Reaction Status Date Comments Source type Reported Immunizations Immunization Date Given Site Status Last Updated Comments Source Results Order Results Value Reference Date Interpretation Comments Source Name Range Brain wo Brain wo Patient Name: RIYA BLAKELY LUNA 02/08 - [facility] contrast contrast /2017 - [place] MRI MRI : 1950. Age: 67 years. Gender: Female. MR: [id number]. Location: [facility]. Provider: Hollie Osorio [...] abnormality. Mild chronic microangiopathic ischemic gliosis. SL: [id number] Abdomen Abdomen PROCEDURE: MAGNETIC RESONANCE CHOLANGIOPANCREATOGRAPHY - [place] - [place] contrast contrast MRI MRI CLINICAL INDICATION: R10.9 [...] MAGNETIC RESONANCE IMAGING OF THE ABDOMEN - [facility] w/wo w/wo - [place] contrast contrast MRI MRI REASON FOR EXAM: [...] Comments Source Systolic (mm Hg) 121 12/16/2015 [facility] Diastolic (mm Hg) 75 12/16/2015 [facility] Weight 57.273 12/16/2015 [facility] Height 152.4 cm 12/16/2015 [facility] Respitory Rate 92 12/16/2015 [facility] BMI Calculated 24.66 12/16/2015 [facility] BMI Calculated 24.46 12/02/2015 [facility] Weight 56.818 12/02/2015 [facility] Height 152.4 cm 12/02/2015 [facility] Systolic (mm Hg) 125 12/02/2015 [facility] Diastolic (mm Hg) 79 12/02/2015 [facility] Respitory Rate 86 12/02/2015 [facility] Systolic (mm Hg) 134 11/24/2015 [facility] Diastolic (mm Hg) 87 11/24/2015 [facility] Height 180.34 cm 11/24/2015 [facility] Heart Rate 84 11/24/2015 [facility] BMI Calculated 17.61 11/24/2015 [facility] Weight 57.273 11/24/2015 [facility] Encounters Location Location Encounter Encounter Reason Attending ADM DC Status Source Details Type Number For Provider Date Date Visit [facility] [id number] [place] 11/23 11/24 [facility] Outpatient [id number] [place] 12/01 12/02 [facility] Outpt Diag [id number] [place] 12/10 12/11 [facility] [place] [facility] Outpatient [id number] Jul[place] 12/15 12/16 [facility] Outpatient [id number] Jul[place] 03/23 03/24 [facility] /2015 [facility] Outpatient [id number] Jul[place] 03/23 03/[address] [facility] [id number] [place] 02/08 02/09 [facility] [place] Procedures Procedure Code Date Perfomer Comments Source Biopsy of liver [id number] [facility] Cataract surgery [id number] [facility] Colonoscopy [id number] [facility] Endoscopy [id number] [facility] Hysterectomy [id number] [facility] Ultrasound [id number] [facility] Biopsy of liver [id number] [facility] [place] Cataract surgery [id number] [facility] [place] Colonoscopy [id number] [facility] [place] Endoscopy [id number] [facility] [place] Hysterectomy [id number] [facility] [place] MRI of abdomen [id number] [facility] [place] MRI of kidneys [id number] [facility] [place] Ultrasound [id number] [facility] [place] MRI of abdomen [id number] [facility] MRI of kidneys [id number] [facility] Biopsy of liver [id number] [facility] [place] Cataract surgery [id number] [facility] [place] Colonoscopy [id number] [facility] [place] Endoscopy [id number] [facility] [place] Hysterectomy [id number] [facility] [place] Ultrasound [id number] [facility] [place]
[2018-11-30] MEDS ORDERED: DIPHENHYDRAMINE 50 MG/ML VIAL ONE (17:44)
[2018-11-30] MEDS ORDERED: NA CHLORIDE 0.9% 500 ML ONE (17:44)
[2018-11-30] MEDS ORDERED: METOCLOPRAMIDE 10 MG/2mL INJ ONE (17:44)
--- NOTE | 2018-11-30 18:06 | RAD REPORT ---
EXAM DESCRIPTION: CT - Head Brain Wo Cont - 11/30/2018 6:00 pm CLINICAL HISTORY: Persistent three-day headache, progressively worse COMPARISON: CT head May 09, 2018 TECHNIQUE: Axial 5 mm thick images of the head were obtained without IV contrast. All CT scans are performed using dose optimization technique as appropriate and may include automated exposure control or mA/KV adjustment according to patient size. FINDINGS: No intracranial hemorrhage, mass, edema or shift of mid-line structures. No acute cortical based infarction. No cortical edema or sulcal effacement seen. Patient has atrophy and chronic ische delia changes present. These are not clearly different from the comparison study. Physiologic basal bradley glia calcifications are present. No abnormal extra-axial fluid collections. Ventricles are in proport ion to volume loss. Mastoid air cells and visualized portions of the paranasal sinuses are clear. No acute bony findings. IMPRESSION: Negative non-contrast CT head examination for acute finding Atrophy and chronic ischemic changes are present matching the April 2018 study.
[2018-11-30 18:10] LABS: Absolute Lymphocytes (CBC) 2.2 K/uL (0.7-4.9); Absolute Monocytes 0.5 K/uL (0.1-1.3); Absolute Neutrophil 7.5 K/uL (1.8-8.0); Basophils % 0.3 % (0-1.3); Eosinophils % 0.1 % (0-4.4); Hematocrit 35.2 % (36.0-45.0); Lymphocytes % 21.3 % (15.3-44.8); MPV 7.7 fL (7.6-11.3); Monocytes % 4.7 % (3.3-12.3); RBC Red Blood Cell Count 3.95 M/uL (3.86-4.86)
[2018-11-30 18:28] LABS: Potassium 4.1 mmol/L (3.5-5.1)
[2018-11-30] MEDS ORDERED: MEPERIDINE HCL 25 MG/0.5 ML ONE (19:08)
--- NOTE | 2018-11-30 19:40 | ER ---
Nurse's Notes [facility] Name: Alberto Botello Age: 68 yrs Sex: Female : 1950 Arrival Date: 11/30/2018 Time: 16:49 Bed 16 Private MD: Diagnosis: Migraine Presentation: 11/30 16:59 Presenting complaint: Pt's family reports headache x 2-3 days ago, worse today. Reports aa5 being seen by her doctor and she has MRI scheduled for next Tuesday. Denies nausea, denies vomiting. 16:59 Transition of care: patient was not received from another setting of care. Onset of aa5 symptoms was November 2018. Risk Assessment: Do you want to hurt yourself or someone else? Patient reports no desire to harm self or others. Care prior to arrival: None. 16:59 Acuity: ART 3 aa5 16:59 Method Of Arrival: Wheelchair aa5 17:21 Initial Sepsis Screen: Does the patient meet any 2 criteria? No. Patient's initial tw2 sepsis screen is negative. Does the patient have a suspected source of infection? No. Patient's initial sepsis screen is negative. Triage Assessment: 17:19 Headache History: The patient has had previous headaches and this one is similar to tw2 previous episodes, and this one is more severe than previous episodes. General: Appears in no apparent distress. Behavior is calm, cooperative, appropriate for age. Pain: Complains of pain in headache Pain currently is 10 out of 10 on a pain scale. Pain began 2-3 days ago. Also complains of no other associated symptoms. EENT: No signs and/or symptoms were reported regarding the EENT system. Neuro: Level of Consciousness is awake, alert, obeys commands, Oriented to person, place, time, situation. Neuro: Reports headache. Cardiovascular: Heart tones S1 S2 Patient's skin is warm and dry. Respiratory: Airway is patent Respiratory effort is even, unlabored, Respiratory pattern is regular, symmetrical, Breath sounds are clear bilaterally. GI: No signs and/or symptoms were reported involving the gastrointestinal system. : No signs and/or symptoms were reported regarding the genitourinary system. Derm: No signs and/or symptoms reported regarding the dermatologic system. Musculoskeletal: Range of motion: intact in all extremities. Historical: - Allergies: 17:00 No Known Allergies; aa5 - Home Meds: 17:00 Metformin 425mg twice a day Oral [Active]; morphine 45 mg Oral CM24 twice a day aa5 [Active]; lisinopril 10 mg Oral tab twice a day [Active]; okddiylneg-sjswonjekqmzy-smsw 50-325-40 mg Oral cap every 8 hrs as needed for headache [Active]; 17:23 alprazolam 2 mg Oral tab nightly [Active]; lisinopril 10 mg Oral tab 1 tab once daily tw2 [Active]; Meclizine Oral [Active]; meloxicam Oral [Active]; metformin 850 mg Oral tab daily [Active]; trazodone 100 mg Oral tab 1 tab [Active]; morphine 30 mg Oral CM24 1 cap once daily [Active]; Ranitidine Oral [Active]; - PMHx: 17:00 Chronic pain; Diabetes - NIDDM; Hepatitis; Hypertension; Osteoporosis; Pancreatitis; aa5 - Immunization history:: Adult Immunizations. - Social history:: Smoking status: . - Ebola Screening: : Patient denies travel to an Ebola-affected area in the 21 days before illness onset. Screenin:11 Abuse screen: Denies threats or abuse. Nutritional screening: No deficits noted. tw2 Tuberculosis screening: No symptoms or risk factors identified. Fall Risk Secondary diagnosis (15 points) impaired mobility. Assessment: 17:24 Reassessment: see triage assessment. Pain: Complains of pain in headache. tw2 17:25 Reassessment: provider at bedside at this time. tw2 17:30 Reassessment: Patient appears in no apparent distress at this time. No changes from tw2 previously documented assessment. Patient and/or family updated on plan of care and expected duration. Pain level reassessed. Patient is alert, oriented x 3, equal unlabored respirations, skin warm/dry/pink. 19:01 Reassessment: Patient appears in no apparent distress at this time. No changes from tw2 previously documented assessment. Patient and/or family updated on plan of care and expected duration. Pain level reassessed. Patient is alert, oriented x 3, equal unlabored respirations, skin warm/dry/pink. 19:35 General: Appears in no apparent distress. Behavior is appropriate for age. General: Pt ea resting with eyes closed, respirations even and unlabored. Pt pain has decreased. . Respiratory: Airway is patent Respiratory effort is even, unlabored, Respiratory pattern is regular, symmetrical. Derm: Skin is pink, warm \T\ dry. 19:49 Reassessment: Patient and/or family updated on plan of care and expected duration. Pain ea level reassessed. Patient is alert, oriented x 3, equal unlabored respirations, skin warm/dry/pink. Discharge instructions given to patient, verbalized the understanding of instruction. Patient states feeling better. Patient states symptoms have improved. Vital Signs: 16:59 BP 156 / 75; Pulse 80; Resp 16 S; Temp 99.3(O); Pulse Ox 100% on R/A; aa5 18:02 BP 163 / 77; Pulse 78; Resp 17; Pulse Ox 100% on R/A; tw2 19:01 BP 170 / 88; Pulse 79; Resp 17; Pulse Ox 99% on R/A; tw2 ED Course: 16:49 Patient arrived in ED. rg4 16:56 Arm band placed on Patient placed in an exam room, on a stretcher. aa5 16:56 Bed in low position. Call light in reach. Adult w/ patient. quality assurance monitor body on. Pulse tw2 ox on. NIBP on. 16:59 Ruel Cantu PA is PHCP. jr8 16:59 Reji Carson MD is Attending Physician. jr8 17:05 Triage completed. aa5 17:11 Joana Knight, RN is Primary Nurse. tw2 17:38 Initial lab(s) drawn, by mi, sent to lab. Inserted saline lock: 22 gauge in right jl7 forearm, using aseptic technique. Blood collected. 18:00 CT Head Brain wo Cont In Process Unspecified. EDMS 18:00 CT completed. Patient tolerated procedure well. Patient moved to CT. Patient moved back wi from CT. 19:10 Report given to YOSVANY Wang. tw2 19:13 Primary Nurse role handed off by Joana Knight RN tw2 19:31 Kathleen Ross RN is Primary Nurse. ea 19:49 No provider procedures requiring assistance completed. IV discontinued, intact, ea bleeding controlled, No redness/swelling at site. Pressure dressing applied. Administered Medications: 17:35 Drug: NS 0.9% 500 ml Route: IV; Rate: bolus; Site: left antecubital; tw2 18:40 Follow up: Response: No adverse reaction; IV Status: Completed infusion; IV Intake: tw2 500ml 17:37 Drug: Benadryl 25 mg Route: IVP; Site: left antecubital; tw2 18:59 Follow up: Response: No adverse reaction tw2 17:39 Drug: Reglan 10 mg Route: IVP; Site: left antecubital; tw2 19:00 Follow up: Response: No adverse reaction tw2 18:59 Drug: Demerol 25 mg Route: IVP; Site: left antecubital; tw2 19:34 Follow up: Response: No adverse reaction; Pain is decreased ea Intake: 18:40 IV: 500ml; Total: 500ml. tw2 Outcome: 19:40 Discharge ordered by . daina 19:50 Discharged to home ambulatory, with family. ea 19:50 Condition: improved 19:50 Discharge instructions given to patient, family, Instructed on discharge instructions, follow up and referral plans. Demonstrated understanding of instructions, follow-up care. 19:50 Patient left the ED. ea Signatures: Dispatcher [employer] EDMS Merna Higgins, RN RN aa5 Ruel Cantu PA PA jr8 Joana Knight RN RN tw2 Maria Ines Portillo4 Ba Rivera Jahala RN RN jl7 Kathleen Ross RN RN isaura Corrections: (The following items were deleted from the chart) 17:11 16:59 Presenting complaint: Pt's family reports headache x 2-3 days ago, worse today. aa5 Reports being seen by her doctor and she has MRI scheduled for next Tuesday. aa5
--- NOTE | 2018-11-30 19:40 | EDPHYS ---
Physician Documentation [facility] Name: Alberto Botello Age: 68 yrs Sex: Female : 1950 Arrival Date: 11/30/2018 Time: 16:49 Bed 16 Private MD: ED Physician Reji Carson HPI: 11/30 18:33 This 68 yrs old Female presents to ER via Wheelchair with complaints of Headache. jr8 18:33 The patient complains of pain to the top of head, forehead, right jain and left jr8 jain. The patient describes the headache as throbbing. Onset: The symptoms/episode began/occurred acutely, yesterday. Associated signs and symptoms: The patient has no apparent associated signs or symptoms. Severity of symptoms: At its worst the pain was moderate, in the emergency department the pain is unchanged. The patient has experienced similar episodes in the past, a few times. The patient has not recently seen a physician. Historical: - Allergies: 17:00 No Known Allergies; aa5 - Home Meds: 17:00 Metformin 425mg twice a day Oral [Active]; morphine 45 mg Oral CM24 twice a day aa5 [Active]; lisinopril 10 mg Oral tab twice a day [Active]; cpnwblwjai-yvmimrmzztcme-irmw 50-325-40 mg Oral cap every 8 hrs as needed for headache [Active]; 17:23 alprazolam 2 mg Oral tab nightly [Active]; lisinopril 10 mg Oral tab 1 tab once daily tw2 [Active]; Meclizine Oral [Active]; meloxicam Oral [Active]; metformin 850 mg Oral tab daily [Active]; trazodone 100 mg Oral tab 1 tab [Active]; morphine 30 mg Oral CM24 1 cap once daily [Active]; Ranitidine Oral [Active]; - PMHx: 17:00 Chronic pain; Diabetes - NIDDM; Hepatitis; Hypertension; Osteoporosis; Pancreatitis; aa5 - Immunization history:: Adult Immunizations. - Social history:: Smoking status: . - Ebola Screening: : Patient denies travel to an Ebola-affected area in the 21 days before illness onset. ROS: 18:33 Eyes: Negative for injury, pain, redness, and discharge, ENT: Negative for injury, jr8 pain, and discharge, Neck: Negative for injury, pain, and swelling, Cardiovascular: Negative for chest pain, palpitations, and edema, Respiratory: Negative for shortness of breath, cough, wheezing, and pleuritic chest pain, Abdomen/GI: Negative for abdominal pain, nausea, vomiting, diarrhea, and constipation, Back: Negative for injury and pain, MS/Extremity: Negative for injury and deformity, Skin: Negative for injury, rash, and discoloration. 18:33 Neuro: Positive for headache, Negative for altered mental status, dizziness, gait disturbance, hearing loss, loss of consciousness, numbness, seizure activity, speech changes, syncope, near syncope, tingling, tinnitus, tremor, visual changes, weakness. Exam: 18:33 Eyes: Pupils equal round and reactive to light, extra-ocular motions intact. Lids and jr8 lashes normal. Conjunctiva and sclera are non-icteric and not injected. Cornea within normal limits. Periorbital areas with no swelling, redness, or edema. ENT: Nares patent. No nasal discharge, no septal abnormalities noted. Tympanic membranes are normal and external auditory canals are clear. Oropharynx with no redness, swelling, or masses, exudates, or evidence of obstruction, uvula midline. Mucous membranes moist. Neck: Trachea midline, no thyromegaly or masses palpated, and no cervical lymphadenopathy. Supple, full range of motion without nuchal rigidity, or vertebral point tenderness. No Meningismus. Cardiovascular: Regular rate and rhythm with a normal S1 and S2. No gallops, murmurs, or rubs. Normal PMI, no JVD. No pulse deficits. Respiratory: Lungs have equal breath sounds bilaterally, clear to auscultation and percussion. No rales, rhonchi or wheezes noted. No increased work of breathing, no retractions or nasal flaring. Abdomen/GI: Soft, non-tender, with normal bowel sounds. No distension or tympany. No guarding or rebound. No evidence of tenderness throughout. Back: No spinal tenderness. No costovertebral tenderness. Full range of motion. Skin: Warm, dry with normal turgor. Normal color with no rashes, no lesions, and no evidence of cellulitis. MS/ Extremity: Pulses equal, no cyanosis. Neurovascular intact. Full, normal range of motion. Neuro: Awake and alert, GCS 15, oriented to person, place, time, and situation. Cranial nerves II-XII grossly intact. Motor strength 5/5 in all extremities. Sensory grossly intact. Cerebellar exam normal. Normal gait. Vital Signs: 16:59 BP 156 / 75; Pulse 80; Resp 16 S; Temp 99.3(O); Pulse Ox 100% on R/A; aa5 18:02 BP 163 / 77; Pulse 78; Resp 17; Pulse Ox 100% on R/A; tw2 19:01 BP 170 / 88; Pulse 79; Resp 17; Pulse Ox 99% on R/A; tw2 MDM: 16:59 Patient medically screened. jr8 19:39 Data reviewed: vital signs, nurses notes, lab test result(s), radiologic studies, CT jr8 scan. Data interpreted: Pulse oximetry: on room air is 99 %. Interpretation: normal. Counseling: I had a detailed discussion with the patient and/or guardian regarding: the historical points, exam findings, and any diagnostic results supporting the discharge/admit diagnosis, lab results, radiology results, the need for outpatient follow up, a family practitioner, to return to the emergency department if symptoms worsen or persist or if there are any questions or concerns that arise at home. Response to treatment: the patient's symptoms have markedly improved after treatment. 11/30 17:27 Order name: CBC with Diff [facility] 11/30 17:27 Order name: Basic Metabolic Panel [facility] 11/30 17:27 Order name: CT Head Brain wo Cont; Complete Time: 18:18 jr8 11/30 17:28 Order name: CBC with Automated Diff; Complete Time: 18:18 EDMS 11/30 17:28 Order name: Basic Metabolic Panel; Complete Time: 18:34 EDMS 11/30 17:27 Order name: IV; Complete Time: 18:01 [facility] Administered Medications: 17:35 Drug: NS 0.9% 500 ml Route: IV; Rate: bolus; Site: left antecubital; tw2 18:40 Follow up: Response: No adverse reaction; IV Status: Completed infusion; IV Intake: tw2 500ml 17:37 Drug: Benadryl 25 mg Route: IVP; Site: left antecubital; tw2 18:59 Follow up: Response: No adverse reaction tw2 17:39 Drug: Reglan 10 mg Route: IVP; Site: left antecubital; tw2 19:00 Follow up: Response: No adverse reaction tw2 18:59 Drug: Demerol 25 mg Route: IVP; Site: left antecubital; tw2 19:34 Follow up: Response: No adverse reaction; Pain is decreased ea Disposition: 12/01 07:16 Co-signature as Attending Physician, Reji Carson MD I agree with the assessment and kdr plan of care. Disposition: 11/30/18 19:40 Discharged to Home. Impression: Migraine. - Condition is Stable. - Discharge Instructions: Migraine Headache. - Medication Reconciliation Form, Thank You Letter, Antibiotic Education, Prescription Opioid Use form. - Follow up: Private Physician; When: 5 - 6 days; Reason: Recheck today's complaints, Continuance of care, Re-evaluation by your physician. - Problem is new. - Symptoms have improved. Signatures: Dispatcher [employer] EDKY Reji Carson MD MD [facility] Merna Higgins RN RN aa5 Ruel Cantu PA PA jr8 Joana Knight RN RN tw2 Kathleen Ross RN RN ea Corrections: (The following items were deleted from the chart) 11/30 19:50 19:40 11/30/2018 19:40 Discharged to Home. Impression: Migraine. Condition is Stable. ea Forms are Medication Reconciliation Form, Thank You Letter, Antibiotic Education, Prescription Opioid Use. Follow up: Private Physician; When: 5 - 6 days; Reason: Recheck today's complaints, Continuance of care, Re-evaluation by your physician. Problem is new. Symptoms have improved. jr8
[2018-11-30 19:56] VITALS: TEMP 99.3
[2018-11-30 19:58] VITALS: BP 170/88; O2SAT 99
== END 2018-11-30 19:50 | disposition home or self-care (01) ==
LOC: ER 16:47
DX: G43.909 Migraine, unspecified, not intractable, without status migrainosus (principal); E11.9 Type 2 diabetes mellitus without complications; K75.9 Inflammatory liver disease, unspecified; I10 Essential (primary) hypertension; Z79.84 Long term (current) use of oral hypoglycemic drugs
CPT/HCPCS: 96361; 85025; 80048; 36415; 70450; 96375; 96374; 99285; J2765; J2175

== ENCOUNTER 2018-12-12 19:57 | Emergency (ER) | payer OTHER ==
--- OUTSIDE RECORDS SUMMARY | 2018-12-12 19:59 | XMS REPORT | Continuity of Care Document ---
:1950 Author Organization Interface Problems Problem Status Onset Classification Date Comments Source Date Reported R51 - HEADACHE Active 02/04/20 [facility] [place] R51.- HEADACHE Active 02/04/20 [facility] MILD STEATOSIS Active 03/23/[address] BDDC - F/U Active 12/08/[address] R10.9 - Active 12/04/19 [facility] UNSPECIFIED [address] [place] [address] ABDOMINAL PAIN FOLLOW UP Active 11/28/[address] STOMACH PAIN Active 11/14/19 [facility] REFERRAL Abdominal pain Active Problem 02/11/2018 [facility] [place],[facility] Anxiety Active Problem 02/11/2018 [facility], [facility] [place] Chronic Active Problem 02/11/2018 [facility] hepatitis C [facility] [place] Depression Active Problem 02/11/2018 [facility] Gallstones Active Problem 02/11/2018 [facility] [place] HBP - High Active Problem 02/11/2018 [facility] blood pressure [facility] [place] MEDICAL Active [facility] SERVICES NOT Medical Center AVAILABLE IN HOME ALCOHOLIC FATTY Active [facility] LIVER Medical Center OTHER Active [facility] SPECIFIED Medical Center CONGENITAL DEFORMITIES FATTY (CHANGE Active [facility] OF) LIVER, NOT Medical Center ELSEWHERE C Medications Medication Details Route Status Patient Ordering Order Source Instructions Provider Date linaclotide 0.145 145 Active [facility] MG Oral Capsule microgram= 016 Medical [Linzess] 1 cap, PO, Center Daily, 30 minutes prior to the first meal of the day, # 30 cap, 0 Refill(s) oxybutynin 15 mg 15 mg=1 Active [facility] oral tablet, tab, PO, 016 Medical extended release Daily, # Center 30 tab, 0 Refill(s) lubiprostone 0.008 8 Active [facility] MG Oral Capsule microgram= 016 Medical [...] 02/08 - [facility] contrast contrast /2017 - [place] MRI MRI : 1950. Age: 67 years. Gender: Female. MR: [id number]. Location: [facility]. Provider: Hollie Osorio MD. Read by: [...] abnormality. Mild chronic microangiopathic ischemic gliosis. SL: [id number] Abdomen Abdomen PROCEDURE: MAGNETIC RESONANCE CHOLANGIOPANCREATOGRAPHY - [place] - [place] contrast contrast MRI MRI CLINICAL INDICATION: R10.9 [...] THE ABDOMEN - [facility] w/wo w/wo - [place] contrast contrast MRI MRI REASON FOR EXAM: [...] Comments Source Systolic (mm Hg) 121 12/16/2015 [facility] Diastolic (mm Hg) 75 12/16/2015 [facility] Weight 57.273 12/16/2015 [facility] Height 152.4 cm 12/16/2015 [facility] Respitory Rate 92 12/16/2015 [facility] BMI Calculated 24.66 12/16/2015 [facility] BMI Calculated 24.46 12/02/2015 [facility] Weight 56.818 12/02/2015 [facility] Height 152.4 cm 12/02/2015 [facility] Systolic (mm Hg) 125 12/02/2015 [facility] Diastolic (mm Hg) 79 12/02/2015 [facility] Respitory Rate 86 12/02/2015 [facility] Systolic (mm Hg) 134 11/24/2015 [facility] Diastolic (mm Hg) 87 11/24/2015 [facility] Height 180.34 cm 11/24/2015 [facility] Heart Rate 84 11/24/2015 [facility] BMI Calculated 17.61 11/24/2015 [facility] Weight 57.273 11/24/2015 [facility] Encounters Location Location Encounter Encounter Reason Attending ADM DC Status Source Details Type Number For Provider Date Date Visit [facility] [id number] [place] 11/23 11/24 [facility] Outpatient [id number] [place] 12/01 12/02 [facility] Ert [facility] Outpt Diag [id number] [place] 12/10 12/11 [facility] [place] Outpatient [id number] Julien 12/15 12/16 [facility] Outpatient [id number] Julien 03/23 03/24 [facility] /2015 [facility] Outpatient [id number] Julien 03/23 03/24 [facility] [id number] Hollie 02/08 02/09 [facility] [place] Procedures Procedure Code Date Perfomer Comments Source Biopsy of liver [id number] [facility] Cataract surgery [id number] [facility] Colonoscopy [id number] [facility] Endoscopy [id number] [facility] Hysterectomy [id number] [facility] Ultrasound [id number] [facility] Biopsy of liver [id number] [facility] [place] Cataract surgery [id number] [facility] [place] Colonoscopy [id number] [facility] [place] Endoscopy [id number] [facility] [place] Hysterectomy [id number] [facility] [place] MRI of abdomen [id number] [facility] [place] MRI of kidneys [id number] [facility] [place] Ultrasound [id number] [facility] [place] MRI of abdomen [id number] [facility] MRI of kidneys [id number] [facility] Biopsy of liver [id number] [facility] [place] Cataract surgery [id number] [facility] [place] Colonoscopy [id number] [facility] [place] Endoscopy [id number] [facility] [place] Hysterectomy [id number] [facility] [place] Ultrasound [id number] [facility] [place]
[2018-12-12] MEDS ORDERED: FENTANYL CITR 100 MCG/2 ML ONE (20:34)
--- NOTE | 2018-12-12 20:55 | RAD REPORT ---
EXAM DESCRIPTION: CT - Stone Protocol - 12/12/2018 8:38 pm CLINICAL HISTORY: Flank pain. sbo COMPARISON: Abdomen Pelvis W Contrast dated 06/13/2018 TECHNIQUE: Axial images were obtained without oral or IV contrast. Lack of contrast limits solid org an and vascular assessment. The [id number] spans the entirety of the system partially obscuring uppermost abdomen and lung bases. Coronal reformatted images were obtained and reviewed. All CT scans are performed using dose optimization technique as appropriate and may include automated exposure control or mA/KV adjustment according to patient size. FINDINGS: The lower lung taylor are clear. Cholecystectomy clips. Imaged portions of the liver and spleen show no suspicious findings on non-contrast imaging. The panc reas and adrenal glands are normal. No pathologic lymphadenopathy in the abdomen or pelvis. No urinary tract stones or obstructive uropathy. No bowel obstruction, free air, free fluid or abscess. The appendix is not identified as a discrete s tructure, however, no secondary findings of appendicitis are identified. Moderate stool is present in the colon. Vertebroplasty cement is present in the L1 vertebral body. IMPRESSION: No urinary tract stones or obstructive uropathy. Moderate stool is present in the colon.
[2018-12-12 21:09] LABS: ALT/SGPT 36 U/L (12-78); AST/SGOT 27 U/L (15-37); Albumin 3.9 g/dL (3.4-5.0); Alkaline Phosphatase 76 U/L (45-117); BUN Blood Urea Nitrogen 18 mg/dL (7-18); Bicarbonate 25 mmol/L (21-32); Bilirubin Direct < 0.1 mg/dL (0-0.2); Bilirubin Total 0.2 mg/dL (0.2-1.0); Glucose Level 125 mg/dL (74-106); Lipase 181 U/L (73-393); Potassium 3.9 mmol/L (3.5-5.1); Protein, Total 8.6 g/dL (6.4-8.2); Sodium Level 131 mmol/L (136-145)
[2018-12-12] MEDS ORDERED: KETOROLAC 30 MG/ML INJ ONE (21:26)
[2018-12-12 21:27] LABS: Urine Blood 1+ (NEG); Urine Glucose NEGATIVE (NEG); Urine Protein NEGATIVE (NEG); Urine Specific Gravity <1.005 (1.005-1.030); Urine pH 5.5 (5.0-7.0)
[2018-12-12 21:32] LABS: Absolute Lymphocytes (CBC) 2.4 K/uL (0.7-4.9); Absolute Monocytes 0.7 K/uL (0.1-1.3); Absolute Neutrophil 6.3 K/uL (1.8-8.0); Basophils % 0.2 % (0-1.3); Eosinophils % 0.3 % (0-4.4); Hematocrit 33.9 % (36.0-45.0); Lymphocytes % 25.3 % (15.3-44.8); MPV 7.4 fL (7.6-11.3); Monocytes % 7.7 % (3.3-12.3); RBC Red Blood Cell Count 3.78 M/uL (3.86-4.86)
--- NOTE | 2018-12-12 21:51 | ER ---
Nurse's Notes [facility] Name: Alberto Botello Age: 68 yrs Sex: Female : 1950 Arrival Date: 12/12/2018 Time: 20:00 Bed 26 Private MD: Alis Jamison H Diagnosis: Lower abdominal pain, unspecified;Cystitis Presentation: 12/12 20:11 Presenting complaint: Child states: ABDOMINAL PAIN STARTED MORNING TODAY BUT SHE DOES ca1 NOT WANT TO GO TO THE HOSPITAL, SO SHE DID NOT TELL ME ABOUT IT. IT GOT WORSE 3-HOURS AGO. NO N/V. LAST BM MORNING TODAY. Transition of care: patient was not received from another setting of care. Onset of symptoms was December 12, 2018 at 08:30. Risk Assessment: Do you want to hurt yourself or someone else? Patient reports no desire to harm self or others. Initial Sepsis Screen: Does the patient meet any 2 criteria? No. Patient's initial sepsis screen is negative. Does the patient have a suspected source of infection? No. Patient's initial sepsis screen is negative. Care prior to arrival: None. 20:11 Method Of Arrival: Ambulatory ca1 20:11 Acuity: ART 3 ca1 Triage Assessment: 20:18 General: Appears uncomfortable, ill, Behavior is cooperative, restless. Pain: Complains ca1 of pain in left upper quadrant and left lower quadrant. EENT: No signs and/or symptoms were reported regarding the EENT system. Neuro: Level of Consciousness is awake, alert, obeys commands, Oriented to person, place, time, situation. Cardiovascular: Capillary refill < 3 seconds. Respiratory: Airway is patent. GI: Abdomen is round distended. : No signs and/or symptoms were reported regarding the genitourinary system. Derm: Skin is intact. Musculoskeletal: No signs and/or symptoms reported regarding the musculoskeletal system. Historical: - Allergies: 20:17 No Known Allergies; ca1 - Home Meds: 20:17 alprazolam 2 mg Oral tab nightly [Active]; szjwxfowht-lywjwkarucamk-hllc 50-325-40 mg ca1 Oral cap every 8 hrs as needed for headache [Active]; lisinopril 10 mg Oral tab 1 tab once daily [Active]; metformin 850 mg Oral tab daily [Active]; morphine 30 mg Oral CM24 1 cap once daily [Active]; ranitidine HCl 300 mg oral cap 1 cap 2 times per day [Active]; montelukast 10 mg oral tab 1 tab once daily [Active]; Amitiza 8 mcg oral cap 1 cap 2 times per day [Active]; - PMHx: 20:17 Chronic pain; Diabetes - NIDDM; Hepatitis; Hypertension; Osteoporosis; Pancreatitis; ca1 - PSHx: 20:17 Hysterectomy; Cholecystectomy; ca1 - Immunization history:: Adult Immunizations unknown. - Social history:: Smoking status: Patient uses tobacco products, smokes one pack cigarettes per day. - Ebola Screening: : Patient negative for fever greater than or equal to 101.5 degrees Fahrenheit, and additional compatible Ebola Virus Disease symptoms Patient denies exposure to infectious person Patient denies travel to an Ebola-affected area in the 21 days before illness onset. Screenin:20 Abuse screen: Denies threats or abuse. Denies injuries from another. Nutritional ca1 screening: No deficits noted. Tuberculosis screening: No symptoms or risk factors identified. Fall Risk None identified. Assessment: 21:02 Reassessment: (triage notes). rv 21:41 Reassessment: Patient appears in no apparent distress at this time. Patient and/or rv family updated on plan of care and expected duration. Pain level reassessed. Patient is alert, oriented x 3, equal unlabored respirations, skin warm/dry/pink. 0403 00:17 GI: ca1 Vital Signs: 04 20:17 BP 174 / 74 RA; Pulse 73; Resp 21 S; Temp 99.1(O); Pulse Ox 100% on R/A; Weight 55.79 ca1 kg (R); Height 5 ft. (152.40 cm) (R); 21:00 BP 139 / 86 LA; Pulse 70; Resp 18 S; Pulse Ox 100% on R/A; rv 21:30 BP 141 / 74 LA; Pulse 64; Resp 16 S; Pulse Ox 100% on R/A; rv 20:17 Body Mass Index 24.02 (55.79 kg, 152.40 cm) ca1 ED Course: 20:00 Patient arrived in ED. es 20:00 Alis Jamison DO is Private Physician. es 20:02 Sofya Soriano, YOSVANY is Primary Nurse. ca1 20:06 Tadeo Fatima MD is Attending Physician. gs 20:14 Triage completed. ca1 20:20 Patient has correct armband on for positive identification. Bed in low position. Call ca1 light in reach. Side rails up X 1. Adult w/ patient. Pulse ox on. NIBP on. 20:20 Arm band placed on. ca1 20:20 EKG completed in triage. Results shown to MD. ca1 20:[address] vm2 20:30 Inserted saline lock: 22 gauge in right upper arm, using aseptic technique. Blood rv collected. 20:36 CT completed. Patient tolerated procedure well. Patient moved back from [place]. nj 20:39 CT Stone Protocol In Process Unspecified. EDMS 21:11 Urine collected: clean catch specimen, clear. rv 22:15 No provider procedures requiring assistance completed. IV discontinued, intact, ca1 bleeding controlled, No redness/swelling at site. Pressure dressing applied. Administered Medications: 20:42 Drug: fentaNYL (PF) 50 mcg Route: IVP; Site: right upper arm; rv 21:01 Follow up: Response: Pain is unchanged, physician notified rv 21:19 Drug: TORadol 15 mg Route: IVP; Site: right upper arm; rv 22:16 Follow up: Response: Pain is unchanged, physician notified rv Outcome: 21:50 Discharge ordered by MD. gs 22:15 Discharged to home via wheelchair. ca1 22:15 Discharged to home via wheelchair, with family. 22:15 Condition: good 22:15 Condition: stable 22:15 Discharge instructions given to patient, family, Instructed on discharge instructions, follow up and referral plans. Demonstrated understanding of instructions, follow-up care. 22:17 Patient left the ED. rv Signatures: Dispatcher [employer] EDAbimbola Oneill Nathan nj McGuire, Victoria [facility] Tadeo Fatima MD MD Manuel Zelaya RN RN rv Sofya Soriano RN RN ca1
--- NOTE | 2018-12-12 21:51 | EDPHYS ---
Physician Documentation [facility] Name: Alberto Botello Age: 68 yrs Sex: Female : 1950 Arrival Date: 12/12/2018 Time: 20:00 Bed 26 Private MD: Alis Jamison H ED Physician Tadeo Fatima HPI: 12/12 21:23 This 68 yrs old Female presents to ER via Ambulatory with complaints of Abdominal Pain. gs 21:23 The patient presents with abdominal pain in the left lower quadrant. Onset: The gs symptoms/episode began/occurred yesterday. The symptoms do not radiate. Associated signs and symptoms: Pertinent negatives: nausea and vomiting, diarrhea, vomiting. The symptoms are described as crampy, sharp. Severity of pain: At its worst the pain was moderate in the emergency department the pain is unchanged. The patient has experienced similar episodes in the past, multiple times. Historical: - Allergies: 20:17 No Known Allergies; ca1 - Home Meds: 20:17 alprazolam 2 mg Oral tab nightly [Active]; uqquphlfiq-rtsgscthvmrcy-hctc 50-325-40 mg ca1 Oral cap every 8 hrs as needed for headache [Active]; lisinopril 10 mg Oral tab 1 tab once daily [Active]; metformin 850 mg Oral tab daily [Active]; morphine 30 mg Oral CM24 1 cap once daily [Active]; ranitidine HCl 300 mg oral cap 1 cap 2 times per day [Active]; montelukast 10 mg oral tab 1 tab once daily [Active]; Amitiza 8 mcg oral cap 1 cap 2 times per day [Active]; - PMHx: 20:17 Chronic pain; Diabetes - NIDDM; Hepatitis; Hypertension; Osteoporosis; Pancreatitis; ca1 - PSHx: 20:17 Hysterectomy; Cholecystectomy; ca1 - Immunization history:: Adult Immunizations unknown. - Social history:: Smoking status: Patient uses tobacco products, smokes one pack cigarettes per day. - Ebola Screening: : Patient negative for fever greater than or equal to 101.5 degrees Fahrenheit, and additional compatible Ebola Virus Disease symptoms Patient denies exposure to infectious person Patient denies travel to an Ebola-affected area in the 21 days before illness onset. ROS: 21:23 All other systems are negative. gs Exam: 21:23 Head/Face: Normocephalic, atraumatic. Eyes: Pupils equal round and reactive to light, gs extra-ocular motions intact. Lids and lashes normal. Conjunctiva and sclera are non-icteric and not injected. Cornea within normal limits. Periorbital areas with no swelling, redness, or edema. ENT: Nares patent. No nasal discharge, no septal abnormalities noted. Tympanic membranes are normal and external auditory canals are clear. Oropharynx with no redness, swelling, or masses, exudates, or evidence of obstruction, uvula midline. Mucous membranes moist. Neck: Trachea midline, no thyromegaly or masses palpated, and no cervical lymphadenopathy. Supple, full range of motion without nuchal rigidity, or vertebral point tenderness. No Meningismus. Chest/axilla: Normal chest wall appearance and motion. Nontender with no deformity. No lesions are appreciated. Cardiovascular: Regular rate and rhythm with a normal S1 and S2. No gallops, murmurs, or rubs. Normal PMI, no JVD. No pulse deficits. Respiratory: Lungs have equal breath sounds bilaterally, clear to auscultation and percussion. No rales, rhonchi or wheezes noted. No increased work of breathing, no retractions or nasal flaring. Back: No spinal tenderness. No costovertebral tenderness. Full range of motion. Skin: Warm, dry with normal turgor. Normal color with no rashes, no lesions, and no evidence of cellulitis. MS/ Extremity: Pulses equal, no cyanosis. Neurovascular intact. Full, normal range of motion. Neuro: Awake and alert, GCS 15, oriented to person, place, time, and situation. Cranial nerves II-XII grossly intact. Motor strength 5/5 in all extremities. Sensory grossly intact. Cerebellar exam normal. Normal gait. 21:23 Constitutional: The patient appears alert, awake. 21:23 Abdomen/GI: Palpation: moderate abdominal tenderness, in the left lower quadrant, rebound tenderness, is not appreciated. Vital Signs: 20:17 BP 174 / 74 RA; Pulse 73; Resp 21 S; Temp 99.1(O); Pulse Ox 100% on R/A; Weight 55.79 ca1 kg (R); Height 5 ft. (152.40 cm) (R); 21:00 BP 139 / 86 LA; Pulse 70; Resp 18 S; Pulse Ox 100% on R/A; rv 21:30 BP 141 / 74 LA; Pulse 64; Resp 16 S; Pulse Ox 100% on R/A; rv 20:17 Body Mass Index 24.02 (55.79 kg, 152.40 cm) ca1 MDM: 20:15 Patient medically screened. gs 21:23 Differential diagnosis: bowel obstruction, non-specific abd pain, pancreatitis, urinary gs tract infection. Data reviewed: vital signs, nurses notes. Response to treatment: the patient's symptoms have resolved after treatment, and as a result, I will discharge patient. 12/12 20:19 Order name: Basic Metabolic Panel; Complete Time: 21:25 gs 12/12 20:19 Order name: CBC with Diff; Complete Time: 21:42 gs 12/12 20:19 Order name: Hepatic Function; Complete Time: 21:25 gs 12/12 20:19 Order name: Lipase; Complete Time: 21:25 gs 12/12 20:56 Order name: Urine Microscopic Only fc 12/12 21:18 Order name: Urine Dipstick--Ancillary (enter results); Complete Time: 21:32 mw2 12/12 20:19 Order name: IV Saline Lock; Complete Time: 20:29 gs 12/12 20:19 Order name: Labs collected and sent; Complete Time: 20:29 gs 12/12 20:19 Order name: CT Stone Protocol; Complete Time: 20:59 gs Administered Medications: 20:42 Drug: fentaNYL (PF) 50 mcg Route: IVP; Site: right upper arm; rv 21:01 Follow up: Response: Pain is unchanged, physician notified rv 21:19 Drug: TORadol 15 mg Route: IVP; Site: right upper arm; rv 22:16 Follow up: Response: Pain is unchanged, physician notified rv Disposition: 12/12/18 21:50 Discharged to Home. Impression: Lower abdominal pain, unspecified, Cystitis. - Condition is Stable. - Discharge Instructions: Abdominal Pain, Adult, Urinary Tract Infection, Adult. - Prescriptions for Keflex 500 mg Oral Capsule - take 1 capsule by ORAL route every 12 hours for 10 days; 20 capsule. Miralax 17 gram/dose Oral - take 1 packet by ORAL route once daily As needed dilute powder in 8 ounces of water or juice; 1 bottle. - Medication Reconciliation Form, Thank You Letter, Antibiotic Education, Prescription Opioid Use form. - Follow up: Private Physician; When: 2 - 3 days; Reason: Re-evaluation by your physician. Signatures: Dispatcher [employer] Tadeo Tucker MD MD gs Vicente, Ronaldo, RN RN rv Sofya Soriano RN RN ca1 Corrections: (The following items were deleted from the chart) 22:17 21:50 12/12/2018 21:50 Discharged to Home. Impression: Lower abdominal pain, rv unspecified; Cystitis. Condition is Stable. Forms are Medication Reconciliation Form, Thank You Letter, Antibiotic Education, Prescription Opioid Use. Follow up: Private Physician; When: 2 - 3 days; Reason: Re-evaluation by your physician. gs
[2018-12-12 22:37] LABS: Urine Bacteria 20-50 /HPF (<20); Urine Culture Reflex Order REFLEXED
[2018-12-13 10:21] VITALS: TEMP 99.1; O2SAT 100
[2018-12-13 10:23] VITALS: BP 141/74
== END 2018-12-12 22:17 | disposition home or self-care (01) ==
LOC: ER 19:57
DX: N30.90 Cystitis, unspecified without hematuria (principal); I10 Essential (primary) hypertension; E11.9 Type 2 diabetes mellitus without complications; F17.210 Nicotine dependence, cigarettes, uncomplicated
CPT/HCPCS: 93005; 87088; 85025; 87086; 80048; 36415; 80076; 83690; 76377; 74176; J3010; 81003; 81015; 96374; 96375; 99284

== ENCOUNTER 2018-12-13 13:49 | Emergency (ER) | payer OTHER ==
--- OUTSIDE RECORDS SUMMARY | 2018-12-13 16:31 | XMS REPORT | Continuity of Care Document ---
:1950 Author Organization Interface Problems Problem Status Onset Classification Date Comments Source Date Reported R51 - HEADACHE Active 02/04/20 [facility] [place] R51.- HEADACHE Active 02/04/20 [facility] [place] MILD STEATOSIS Active 03/23/[address] BDDC - F/U Active 12/08/[address] R10.9 - Active 12/04/19 [facility] UNSPECIFIED [address] [place] [id number] ABDOMINAL PAIN FOLLOW UP Active 11/28/[address] STOMACH PAIN Active 11/14/19 [facility] S[facility]F [facility] REFERRAL Abdominal pain Active Problem 02/11/2018 [facility] [place] Anxiety Active Problem 02/11/2018 [facility], [facility] [place] Chronic Active Problem 02/11/2018 [facility] hepatitis C [facility] [place] Depression Active Problem 02/11/2018 [facility] Gallstones Active Problem 02/11/2018 [facility] [place] HBP - High Active Problem 02/11/2018 [facility] blood pressure [facility] [place] MEDICAL Active [facility] SERVICES NOT Medical Center AVAILABLE IN HOME ALCOHOLIC FATTY Active [facility] LIVER Medical Center OTHER Active [facility] SPECIFIED Medical Center CONGENITAL DEFORMITIES FATTY (CHANGE Active [facility] OF) LIVER, NOT Medical Center ELSEWHERE C Medications Medication Details Route Status Patient Ordering Order Source Instructions Provider Date linaclotide 0.145 145 Active [facility] MG Oral Capsule microgram= 016 Medical [Linzess] 1 cap, PO, Center Daily, 30 minutes prior to the first meal of the day, # 30 cap, 0 Refill(s) oxybutynin 15 mg 15 mg=1 Active [facility] oral tablet, tab, PO, 016 Medical extended release Daily, # Center 30 tab, 0 Refill(s) lubiprostone 0.008 8 Active [facility] MG Oral Capsule microgram= 016 Medical [Amitiza] [...] 02/08 - [facility] contrast contrast /2017 - [place] MRI MRI : 1950. Age: 67 years. Gender: Female. MR: [id number]. Location: [facility]. Provider: Hollie Osorio MD. Read by: Finesse [...] abnormality. Mild chronic microangiopathic ischemic gliosis. SL: [id number] Abdomen Abdomen PROCEDURE: MAGNETIC RESONANCE CHOLANGIOPANCREATOGRAPHY - [place]ILARIA - [place] contrast contrast MRI MRI CLINICAL INDICATION: R10.9 [...] THE ABDOMEN - [facility] w/wo w/wo - [place] contrast contrast MRI MRI REASON FOR EXAM: [...] Hg) 121 12/16/2015 [facility] Diastolic (mm Hg) 75 12/16/2015 [facility] Weight 57.273 12/16/2015 [facility] Height 152.4 cm 12/16/2015 [facility] Respitory Rate 92 12/16/2015 [facility] BMI Calculated 24.66 12/16/2015 [facility] BMI Calculated 24.46 12/02/2015 [facility] Weight 56.818 12/02/2015 [facility] Height 152.4 cm 12/02/2015 [facility] Systolic (mm Hg) 125 12/02/2015 [facility] Diastolic (mm Hg) 79 12/02/2015 [facility] Respitory Rate 86 12/02/2015 [facility] Systolic (mm Hg) 134 11/24/2015 [facility] Diastolic (mm Hg) 87 11/24/2015 [facility] Height 180.34 cm 11/24/2015 [facility] Heart Rate 84 11/24/2015 [facility] BMI Calculated 17.61 11/24/2015 [facility] Weight 57.273 11/24/2015 [facility] Encounters Location Location Encounter Encounter Reason Attending ADM DC Status Source Details Type Number For Provider Date Date Visit [facility] [id number] [place] 11/23 11/24 [facility] Outpatient [id number] [place] 12/01 12/02 [facility] Ert [facility] Out[facility] Diag [id number] [place] 12/10 12/11 [facility] [place] [facility] Outpatient [id number] Julien 12/15 12/16 [facility] Outpatient [id number] Julien 03/23 03/24 [facility] /2015 [facility] Outpatient [id number] Julien 03/23 03/24 [facility] [id number] Hollie 02/08 02/09 [facility] [place] Procedures Procedure Code Date Perfomer Comments Source Biopsy of liver [id number] [facility] Cataract surgery [id number] [facility] Colonoscopy [id number] [facility] Endoscopy [id number] [facility] Hysterectomy [id number] [facility] Ultrasound [id number] [facility] Biopsy of liver [id number] [facility] [place] Cataract surgery [id number] [facility] [place] Colonoscopy [id number] [facility] [place] Endoscopy [id number] [facility] [place] Hysterectomy [id number] [facility] [place] MRI of abdomen [id number] [facility] [place] MRI of kidneys [id number] [facility] [place] Ultrasound [id number] [facility] [place] MRI of abdomen [id number] [facility] MRI of kidneys [id number] [facility] Biopsy of liver [id number] [facility] [place] Cataract surgery [id number] [facility] [place] Colonoscopy [id number] [facility] [place] Endoscopy [id number] [facility] [place] Hysterectomy [id number] [facility] [place] Ultrasound [id number] [facility] [place]
[2018-12-13] MEDS ORDERED: MEPERIDINE HCL 25 MG/0.5 ML ONE ×2 (17:23→19:35)
[2018-12-13] MEDS ORDERED: ONDANSETRON 4 MG/2 ML VIAL ONE (17:24)
[2018-12-13 17:34] LABS: Absolute Lymphocytes (CBC) 1.6 K/uL (0.7-4.9); Absolute Monocytes 0.6 K/uL (0.1-1.3); Absolute Neutrophil 7.3 K/uL (1.8-8.0); Basophils % 0.2 % (0-1.3); Eosinophils % 0.1 % (0-4.4); Hematocrit 34.8 % (36.0-45.0); Lymphocytes % 17.2 % (15.3-44.8); Monocytes % 6.5 % (3.3-12.3); RBC Red Blood Cell Count 3.88 M/uL (3.86-4.86)
[2018-12-13 17:41] LABS: ALT/SGPT 34 U/L (12-78); AST/SGOT 27 U/L (15-37); Albumin 3.9 g/dL (3.4-5.0); Alkaline Phosphatase 76 U/L (45-117); BUN Blood Urea Nitrogen 13 mg/dL (7-18); Bicarbonate 21 mmol/L (21-32); Bilirubin Direct < 0.1 mg/dL (0-0.2); Bilirubin Total 0.3 mg/dL (0.2-1.0); Glucose Level 106 mg/dL (74-106); Lipase 142 U/L (73-393); Protein, Total 8.6 g/dL (6.4-8.2); Sodium Level 122 mmol/L (136-145)
--- NOTE | 2018-12-13 20:04 | RAD REPORT ---
EXAM DESCRIPTION: CT - Abdomen Pelvis W Contrast - 12/13/2018 7:22 pm CLINICAL HISTORY: Abdominal pain. Right upper quadrant pain COMPARISON: June 2018 and 2015 TECHNIQUE: Computed axial tomography of the abdomen and pelvis was obtained. 100 cc Isovue-300 is ad ministered intravenously. Oral contrast was given. All CT scans are performed using dose optimization technique as appropriate and may include automated exposure control or mA/KV adjustment according to patient size. FINDINGS: The liver, spleen, pancreas, adrenals and kidneys appear unremarkable. The appendix is normal caliber. There is no evidence of diverticulitis Gallbladder has been removed. Mild prominence of the biliary tree is unchanged and probably is physio logic Hysterectomy has been performed. Small hiatal hernia Spondylosis of the lumbar spine resulting in spinal stenosis IMPRESSION: No acute abnormality displayed
[2018-12-13 20:15] LABS: Urine Bacteria NONE SEEN /HPF (<20); Urine Culture Reflex Order NOT NEEDED; Urine RBC <5 /HPF (NONE SEEN)
[2018-12-13 20:16] LABS: Urine Blood 1+ (NEG); Urine Glucose NEGATIVE (NEG); Urine Protein NEGATIVE (NEG); Urine Specific Gravity <1.005 (1.005-1.030); Urine pH 5.5 (5.0-7.0)
[2018-12-13] MEDS ORDERED: CEFTRIAXONE 1000 MG/VIAL ONE (20:16)
[2018-12-13] MEDS ORDERED: NA CHLORIDE 0.9% 100 ML IV ONE (20:16)
[2018-12-13] MEDS ORDERED: FENTANYL CITR 100 MCG/2 ML ONE (21:09)
--- NOTE | 2018-12-13 22:01 | ER ---
Nurse's Notes [facility] Name: Alberto Botello Age: 68 yrs Sex: Female : 1950 Arrival Date: 12/13/2018 Time: 13:52 Bed 19 Private MD: Alis Jamison H Diagnosis: Acute abdominal pain Presentation: 12/13 14:20 Presenting complaint: Pt's son reports LUQ pain, reports pt was seen here yesterday for aa5 same complaint. Denies nausea/vomiting/diarrhea. Transition of care: patient was not received from another setting of care. Onset of symptoms was 2018. Risk Assessment: Do you want to hurt yourself or someone else? Patient reports no desire to harm self or others. Initial Sepsis Screen: Does the patient meet any 2 criteria? No. Patient's initial sepsis screen is negative. Does the patient have a suspected source of infection? No. Patient's initial sepsis screen is negative. Care prior to arrival: None. 14:20 Method Of Arrival: Ambulatory aa5 14:20 Acuity: ART 3 aa5 Historical: - Allergies: 14:22 No Known Allergies; aa5 - PMHx: 14:22 Chronic pain; Diabetes - NIDDM; Hepatitis; Hypertension; Osteoporosis; Pancreatitis; aa5 - PSHx: 14:22 Hysterectomy; Cholecystectomy; aa5 - Immunization history:: Flu vaccine is up to date. - Social history:: Smoking status: Patient/guardian denies using tobacco. - Ebola Screening: : No symptoms or risks identified at this time. - Family history:: not pertinent. - Hospitalizations: : No recent hospitalization is reported. Screenin:26 Abuse screen: Denies threats or abuse. Denies injuries from another. Nutritional jl7 screening: No deficits noted. Tuberculosis screening: No symptoms or risk factors identified. Fall Risk IV access (20 points). Total Huffman Fall Scale indicates No Risk (0-24 pts). Assessment: 16:31 Pain: Complains of pain in left upper quadrant and left lower quadrant Pain does not pc1 radiate. Pain currently is 10 out of 10 on a pain scale. Quality of pain is described as throbbing, gnawing, Pain began 1 day ago. Is continuous, Alleviated by nothing. Neuro: Level of Consciousness is awake, alert, obeys commands, Oriented to person, place, time, situation. Cardiovascular: Heart tones S1 S2 Capillary refill < 3 seconds Patient's skin is warm and dry. Respiratory: Respiratory effort is even, unlabored, Respiratory pattern is regular, symmetrical, Breath sounds are clear bilaterally. GI: Abdomen is round Last BM was December 13, 2018. Bowel sounds present X 4 quads. Abd is soft Abdomen is tender to palpation in left upper quadrant and left lower quadrant Patient currently denies diarrhea, rectal bleeding, vomiting. 17:37 Reassessment: Notified Radiology that pt has finished oral contrast. pc1 17:49 Reassessment: Pt's daughter Gali, , requests to be called if we need jl7 anything otherwise she'll return in about 1.5 hours. 19:12 Reassessment: Received verbal order to repeat pain medication if needed. Pt transported ed1 to CT at this time. 19:53 Reassessment: Patient and/or family updated on plan of care and expected duration. Pain ed1 level reassessed. Patient is alert, oriented x 3, equal unlabored respirations, skin warm/dry/pink. Patient states symptoms have not improved. Pain: Complains of pain in abdomen Pain currently is 10 out of 10 on a pain scale. Quality of pain is described as throbbing. 20:34 Reassessment: Patient appears in no apparent distress at this time. No changes from ed1 previously documented assessment. Patient and/or family updated on plan of care and expected duration. Pain level reassessed. Patient is alert, oriented x 3, equal unlabored respirations, skin warm/dry/pink. Patient states symptoms have not improved. 21:48 Reassessment: Patient appears in no apparent distress at this time. Patient and/or ed1 family updated on plan of care and expected duration. Pain level reassessed. Patient is alert, oriented x 3, equal unlabored respirations, skin warm/dry/pink. Patient states feeling better. Patient states symptoms have improved. Vital Signs: 14:22 BP 174 / 89; Pulse 67; Resp 16 S; Temp 98.2(O); Pulse Ox 100% on R/A; aa5 16:37 BP 154 / 76; Pulse 69; Resp 20; Temp 97.9; Pulse Ox 100% on R/A; Pain 10/10; pc1 19:53 BP 152 / 70; Pulse 74; Resp 18; Pulse Ox 97% on R/A; Pain 10/10; ed1 20:34 BP 136 / 68; Pulse 73; Resp 18; Pulse Ox 100% on R/A; Pain 10/10; ed1 21:48 BP 142 / 70; Pulse 71; Resp 19; Pulse Ox 100% on R/A; Pain 7/10; ed1 ED Course: 13:52 Patient arrived in ED. mr 13:53 Alis Jamison DO is Private Physician. mr 14:15 Arm band placed on. aa5 14:21 Triage completed. aa5 16:16 Xavi Ko MD is Attending Physician. rn 16:59 Jonas Navarro RN is Primary Nurse. jl7 17:15 Initial lab(s) drawn, by me, sent to lab. Inserted saline lock: 24 gauge in left wrist, jl7 using aseptic technique. Blood collected. 17:26 Patient has correct armband on for positive identification. Bed in low position. Call jl7 light in reach. Side rails up X2. Pulse ox on. NIBP on. Warm blanket given. 19:13 Primary Nurse role handed off by Jonas Navarro, YOSVANY ed1 19:13 Akosua Ravi, YOSVANY is Primary Nurse. ed1 19:[address] via stretcher. nj 19:21 CT completed. Patient tolerated procedure well. Patient moved back from CT. nj 19:22 CT Abd/Pelvis - W/Contrast In Process Unspecified. EDMS 19:31 Attending Physician role handed off by Xavi Ko MD ms 19:31 Clarence Knight MD is Attending Physician. wa 20:35 No provider procedures requiring assistance completed. ed1 22:00 Clarence Blank MD is Referral Physician. wa 22:15 IV discontinued, intact, bleeding controlled, No redness/swelling at site. Pressure ed1 dressing applied. Administered Medications: 17:23 Drug: Zofran 4 mg Route: IVP; Site: left wrist; jl7 17:51 Follow up: Response: No adverse reaction jl7 17:25 Drug: Demerol 25 mg Route: IVP; Site: left wrist; jl7 17:50 Follow up: Response: No adverse reaction; Pain is decreased jl7 19:53 Drug: Demerol 25 mg Route: IVP; Site: right hand; ed1 20:31 Follow up: Response: No adverse reaction; Pain is unchanged, physician notified ed1 20:31 Drug: Rocephin - (cefTRIAXone) 2 grams Route: IVPB; Infused Over: 30 mins; Site: left ed1 hand; 21:02 Follow up: Response: No adverse reaction; IV Status: Completed infusion; IV Intake: ed1 100ml 21:02 Drug: fentaNYL (PF) 75 mcg Route: IVP; Site: left hand; ed1 21:49 Follow up: Response: No adverse reaction; Pain is decreased ed1 Intake: 21:02 IV: 100ml; Total: 100ml. ed1 Outcome: 19:14 Attestation : I agree with everything documented by Macario Marrero, Student Nurse. jl7 22:00 Discharge ordered by . james 22:15 Discharged to home via wheelchair, with family. ed1 22:15 Condition: good 22:15 Discharge instructions given to family, Instructed on discharge instructions, follow up and referral plans. Demonstrated understanding of instructions, follow-up care. 22:16 Patient left the ED. ed1 Signatures: Dispatcher [employer] [facility] MooShirley StefaniXavi MD MD rn Calderon, Audri, RN RN aa5 Akosua Ravi RN RN ed1 Ba Rivera Jahala, RN RN jl7 Clarence Knight MD MD wa Cantu, Macario galvez
--- NOTE | 2018-12-13 22:02 | EDPHYS ---
Physician Documentation [facility] Name: Alberto Botello Age: 68 yrs Sex: Female : 1950 Arrival Date: 12/13/2018 Time: 13:52 Bed 19 Private MD: Alis Jamison H ED Physician Clarence Knight HPI: 12/13 17:22 This 68 yrs old Female presents to ER via Ambulatory with complaints of Abdominal rn Pain. 17:22 The patient presents with abdominal pain in the periumbilical area. in the left lower rn quadrant. Onset: The symptoms/episode began/occurred yesterday. The symptoms do not radiate. Associated signs and symptoms: Pertinent positives: anorexia, Pertinent negatives: nausea and vomiting, diarrhea, fever, hematuria. The symptoms are described as achy, crampy. Modifying factors: The symptoms are alleviated by nothing, the symptoms are aggravated by movement, touching the area. Severity of pain: At its worst the pain was moderate in the emergency department the pain is unchanged. The patient has experienced similar episodes in the past. Reports seen here yesterday, for same complaint, states told had UTI, given abx, woke up today with worsening abd pain, had negative ct stone protocol yesterday. Daughter states "very disappointed" and wants answers. States her mother is not usually like this. No vomiting/diarrhea/fever. . Historical: - Allergies: 14:22 No Known Allergies; aa5 - PMHx: 14:22 Chronic pain; Diabetes - NIDDM; Hepatitis; Hypertension; Osteoporosis; Pancreatitis; aa5 - PSHx: 14:22 Hysterectomy; Cholecystectomy; aa5 - Immunization history:: Flu vaccine is up to date. - Social history:: Smoking status: Patient/guardian denies using tobacco. - Ebola Screening: : No symptoms or risks identified at this time. - Family history:: not pertinent. - Hospitalizations: : No recent hospitalization is reported. ROS: 17:22 Constitutional: Negative for fever, chills, and weight loss, Eyes: Negative for injury, rn pain, redness, and discharge, Neck: Negative for injury, pain, and swelling, Cardiovascular: Negative for chest pain, palpitations, and edema, Respiratory: Negative for shortness of breath, cough, wheezing, and pleuritic chest pain, Abdomen/GI: + abd pain, negative for nausea/vomiting/diarrhea MS/Extremity: Negative for injury and deformity, Skin: Negative for injury, rash, and discoloration, Neuro: + generalized weakness Exam: 17:22 Constitutional: This is a well developed, well nourished patient who is awake, alert, rn grunting in pain Head/Face: Normocephalic, atraumatic. Eyes: Pupils equal round and reactive to light, extra-ocular motions intact. Lids and lashes normal. Conjunctiva and sclera are non-icteric and not injected. Cornea within normal limits. Periorbital areas with no swelling, redness, or edema. ENT: MMM Cardiovascular: Regular rate and rhythm, No pulse deficits. Respiratory: Lungs have equal breath sounds bilaterally, clear to auscultation, No increased work of breathing, no retractions or nasal flaring. Abdomen/GI: soft, + periumbilical and left abdominal tenderness, no rebound, no masses Skin: Warm, dry MS/ Extremity: Pulses equal, no cyanosis. Neurovascular intact. Full, normal range of motion. Equal circumference. Neuro: Awake and alert, GCS 15, oriented to person, place, time, and situation. Cranial nerves II-XII grossly intact. Motor strength 5/5 in all extremities. Sensory grossly intact. Vital Signs: 14:22 BP 174 / 89; Pulse 67; Resp 16 S; Temp 98.2(O); Pulse Ox 100% on R/A; aa5 16:37 BP 154 / 76; Pulse 69; Resp 20; Temp 97.9; Pulse Ox 100% on R/A; Pain 10/10; pc1 19:53 BP 152 / 70; Pulse 74; Resp 18; Pulse Ox 97% on R/A; Pain 10/10; ed1 20:34 BP 136 / 68; Pulse 73; Resp 18; Pulse Ox 100% on R/A; Pain 10/10; ed1 21:48 BP 142 / 70; Pulse 71; Resp 19; Pulse Ox 100% on R/A; Pain 7/10; ed1 MDM: 16:16 Patient medically screened. rn 19:56 Special discussion: took over care at [address] Ko. Saw pt to get own wa history. pt c/o LUQ pain since yesterday. denies vomiting or diarrhea. pain persistent since onset. seen here yesterday with negative CT abd/pelvis. noted positive UTI and d/c'd with keflex. per pt and daughter, pain still persistent and not improving so returned. IN ED today, pain improved initially with demerol but now returned. 2nd dose demerol ordered to be given prior to me taking over care. will allow the ordered dose. labs and CT pending. 21:58 Differential diagnosis: bowel obstruction, diverticulitis, Mesenteric ischemia or wa infarction, non-specific abd pain, pancreatitis. Data reviewed: vital signs, nurses notes, lab test result(s), radiologic studies. Test interpretation: by ED physician or midlevel provider: labs noted within nl limits. UA negative. CT abd/pelvis: no acute process. Response to treatment: the patient's symptoms have markedly improved after treatment. ED course: pain improved. negative work up. will have f/u closely with GI. 12/13 16:34 Order name: Basic Metabolic Panel; Complete Time: 18:39 rn 12/13 16:34 Order name: CBC with Diff; Complete Time: 18:39 rn 12/13 16:34 Order name: Hepatic Function; Complete Time: 18:39 rn 12/13 16:34 Order name: Lipase; Complete Time: 18:39 rn 12/13 19:53 Order name: Urine Microscopic Only; Complete Time: 21:50 ca 12/13 20:06 Order name: Urine Dipstick--Ancillary (enter results); Complete Time: 21:49 ar5 12/13 16:34 Order name: IV Saline Lock; Complete Time: 17:11 rn 12/13 16:34 Order name: Labs collected and sent; Complete Time: 17:11 rn 12/13 17:02 Order name: CT Abd/Pelvis - W/Contrast; Complete Time: 21:49 rn 12/13 19:53 Order name: Urine Dipstick-Ancillary (obtain specimen); Complete Time: 20:41 wa Administered Medications: 17:23 Drug: Zofran 4 mg Route: IVP; Site: left wrist; jl7 17:51 Follow up: Response: No adverse reaction jl7 17:25 Drug: Demerol 25 mg Route: IVP; Site: left wrist; jl7 17:50 Follow up: Response: No adverse reaction; Pain is decreased jl7 19:53 Drug: Demerol 25 mg Route: IVP; Site: right hand; ed1 20:31 Follow up: Response: No adverse reaction; Pain is unchanged, physician notified ed1 20:31 Drug: Rocephin - (cefTRIAXone) 2 grams Route: IVPB; Infused Over: 30 mins; Site: left ed1 hand; 21:02 Follow up: Response: No adverse reaction; IV Status: Completed infusion; IV Intake: ed1 100ml 21:02 Drug: fentaNYL (PF) 75 mcg Route: IVP; Site: left hand; ed1 21:49 Follow up: Response: No adverse reaction; Pain is decreased ed1 Disposition: 12/13/18 22:00 Discharged to Home. Impression: Acute abdominal pain. - Condition is Stable. - Discharge Instructions: Abdominal Pain, Adult, [id number]. - Medication Reconciliation Form, Thank You Letter, Antibiotic Education, Prescription Opioid Use form. - Follow up: Clarence Blank MD; When: 1 - 2 days; Reason: Recheck today's complaints. - Problem is new. - Symptoms have improved. - Notes: take your pain medication as prescribed. return to ER for rapidly worsening concerns. see trhe gastro doctor and your doctor for further evaluation within the next 2-3 days Signatures: Dispatcher [employer] EDMS Xavi Ko MD MD rn Calderon, Audri RN RN aa5 Akosua Ravi RN RN ed1 Jonas Navarro RN RN jl7 Clarence Knight MD MD wa Corrections: (The following items were deleted from the chart) 22:16 22:00 12/13/2018 22:00 Discharged to Home. Impression: Acute abdominal pain. Condition ed1 is Stable. Forms are Medication Reconciliation Form, Thank You Letter, Antibiotic Education, Prescription Opioid Use. Follow up: Clarence Blank; When: 1 - 2 days; Reason: Recheck today's complaints. Problem is new. Symptoms have improved. wa
[2018-12-13 22:59] VITALS: TEMP 97.9
[2018-12-13 23:02] VITALS: O2SAT 100
[2018-12-13 23:03] VITALS: BP 142/70
== END 2018-12-13 22:16 | disposition home or self-care (01) ==
LOC: ER 13:49
DX: R10.12 Left upper quadrant pain (principal); I10 Essential (primary) hypertension
CPT/HCPCS: 85025; 80048; 36415; 80076; 83690; 74177; Q9967; J3010; J2175 ×2; J2405; 81003; 81015

== ENCOUNTER 2019-06-06 15:49 | Emergency (ER) | payer OTHER ==
[2019-06-06] MEDS ORDERED: ONDANSETRON 4 MG/2 ML VIAL ONE (16:37)
[2019-06-06] MEDS ORDERED: NA CHLORIDE 0.9% 500 ML ONE (16:37)
[2019-06-06] MEDS ORDERED: MORPHINE 2 MG/ML SYR ONE ×2 (16:37→19:08)
[2019-06-06 18:15] LABS: Urine Bacteria <20 /HPF (<20); Urine RBC <5 /HPF (NONE SEEN)
[2019-06-06 18:18] LABS: Urine Culture Reflex Order NOT NEEDED
[2019-06-06 18:22] LABS: Absolute Lymphocytes (CBC) 2.3 K/uL (0.7-4.9); Basophils % 0.3 % (0-1.3); Hematocrit 32.2 % (36.0-45.0); Lymphocytes % 23.5 % (15.3-44.8); MPV 8.4 fL (7.6-11.3); RBC Red Blood Cell Count 3.65 M/uL (3.86-4.86)
[2019-06-06 18:56] LABS: ALT/SGPT 21 U/L (12-78); AST/SGOT 27 U/L (15-37); Albumin 3.8 g/dL (3.4-5.0); Alkaline Phosphatase 76 U/L (45-117); BUN Blood Urea Nitrogen 18 mg/dL (7-18); Bicarbonate 23 mmol/L (21-32); Bilirubin Direct < 0.1 mg/dL (0-0.2); Bilirubin Total 0.2 mg/dL (0.2-1.0); Glucose Level 94 mg/dL (74-106); Lipase 255 U/L (73-393); Potassium 4.5 mmol/L (3.5-5.1); Protein, Total 8.4 g/dL (6.4-8.2); Sodium Level 142 mmol/L (136-145)
[2019-06-06] MEDS ORDERED: NA CHLORIDE 0.9% 1,000 ML ONE (19:29)
--- NOTE | 2019-06-06 19:48 | RAD REPORT ---
EXAM DESCRIPTION: CT - Abdomen Pelvis W Contrast - 06/06/2019 7:22 pm CLINICAL HISTORY: Abdominal pain COMPARISON: December 2018 TECHNIQUE: Computed axial tomography of the abdomen pelvis was obtained. 100 cc Isovue-300 was admin istered intravenously. Oral contrast was not requested which limits evaluation of bowel. All CT scans are performed using dose optimization technique as appropriate and may include automated exposure control or mA/KV adjustment according to patient size. FINDINGS: The liver, spleen, pancreas, adrenal and kidneys appear unremarkable. There is no evidence of diverticulitis. Gallbladder has been removed. Prominence of the biliary tree is unchanged and probably is physiologic Hysterectomy has been performed. Small hiatal hernia Spondylosis of the lumbar spine resulting in spinal stenosis The wall of the distal stomach appears thickened Cement has been placed into an old L1 vertebral fracture IMPRESSION: Apparent thickening of the wall of the distal stomach can be secondary to incomplete dis tention or pathology such as inflammation
[2019-06-06 20:29] LABS: Urine Blood TRACE (NEG); Urine Glucose NEGATIVE (NEG); Urine Protein NEGATIVE (NEG); Urine Specific Gravity <1.005 (1.005-1.030); Urine pH 5.5 (5.0-7.0)
[2019-06-06] MEDS ORDERED: MORPHINE 4 MG/ML SYR ONE (20:49)
--- NOTE | 2019-06-06 20:52 | ER ---
Nurse's Notes [facility] Name: Alberto Botello Age: 68 yrs Sex: Female : 1950 Arrival Date: 06/06/2019 Time: 15:52 Bed 15 Private MD: Alis Jamison H Diagnosis: Unspecified abdominal pain;Gastritis, unspecified Presentation: 06/06 15:54 Presenting complaint: Child states: she has been having stomach pain for a couple of tw2 days and it just got really bad today, she just cant handle the pain. Transition of care: patient was not received from another setting of care. Onset of symptoms was June 06, 2019. Risk Assessment: Do you want to hurt yourself or someone else? Patient reports no desire to harm self or others. Initial Sepsis Screen: Does the patient meet any 2 criteria? No. Patient's initial sepsis screen is negative. Does the patient have a suspected source of infection? No. Patient's initial sepsis screen is negative. Care prior to arrival: None. 15:54 Method Of Arrival: Wheelchair tw2 15:54 Acuity: ART 3 tw2 Triage Assessment: 15:55 General: Appears uncomfortable, Behavior is calm, cooperative, appropriate for age. tw2 Pain: Complains of pain in left upper quadrant and left lower quadrant Pain radiates to back. GI: Reports lower abdominal pain, upper abdominal pain. Historical: - Allergies: 15:56 No Known Allergies; tw2 - Home Meds: 20:10 alprazolam 2 mg Oral tab nightly [Active]; Amitiza 8 mcg Oral cap 1 cap 2 times per day lp1 [Active]; yfvgeykisl-bknrhevrocyzw-oncb 50-325-40 mg Oral cap every 8 hrs as needed for headache [Active]; lisinopril 10 mg Oral tab 1 tab once daily [Active]; metformin 850 mg Oral tab daily [Active]; montelukast 10 mg Oral tab 1 tab once daily [Active]; morphine 30 mg Oral CM24 1 cap once daily [Active]; ranitidine HCl 300 mg Oral cap 1 cap 2 times per day [Active]; - PMHx: 15:56 Chronic pain; Diabetes - NIDDM; Hepatitis; Hypertension; Osteoporosis; Pancreatitis; tw2 - PSHx: 15:56 Hysterectomy; Cholecystectomy; tw2 - Immunization history:: Adult Immunizations. - Social history:: Smoking status: . - Ebola Screening: : Patient denies travel to an Ebola-affected area in the 21 days before illness onset. Screenin:12 Abuse screen: Denies threats or abuse. Denies injuries from another. Nutritional sg screening: No deficits noted. Tuberculosis screening: No symptoms or risk factors identified. Never had TB. Fall Risk None identified. Assessment: 16:12 General: Appears in no apparent distress. uncomfortable, slender, well groomed, well sg developed, well nourished, Behavior is calm, cooperative, appropriate for age. Pain: Complains of pain in left upper quadrant and left lower quadrant Quality of pain is described as aching, sharp. Neuro: Level of Consciousness is awake, alert, obeys commands, Oriented to person, place, time, situation. Cardiovascular: Patient's skin is warm and dry. Chest pain is denied. Respiratory: Airway is patent Respiratory effort is even, unlabored, Respiratory pattern is regular, symmetrical. GI: Bowel sounds present X 4 quads. Abd is soft X 4 quads Abdomen is tender to palpation in left upper quadrant and left lower quadrant. : No signs and/or symptoms were reported regarding the genitourinary system. EENT: No signs and/or symptoms were reported regarding the EENT system. Derm: Skin is pink, warm \T\ dry. Musculoskeletal: Circulation, motion, and sensation intact. Range of motion: intact in all extremities. 17:12 Reassessment: Patient appears in no apparent distress at this time. Patient is alert, sg oriented x 3, equal unlabored respirations, skin warm/dry/pink. Patient states symptoms have not improved. 19:10 Reassessment: Complaint of pain to LLQ, 8/10 on pain scale. Neuro: Level of lp1 Consciousness is awake, alert, obeys commands. Respiratory: Respiratory effort is even, unlabored. GI: Abdomen is non-distended, Abdomen is tender to palpation in left lower quadrant Reports lower abdominal pain. Derm: Skin is pink, warm \T\ dry. 19:45 Reassessment: Patient is alert, oriented x 3, equal unlabored respirations, skin lp1 warm/dry/pink. Patient states pain relief at this time; family at bedside Patient states feeling better. 20:44 Reassessment: Patient complaint of LLQ pain returning; Provider verbal order for lp1 Morphine 4mg IV. 21:08 Reassessment: Provider at bedside discussing results and plan of care with patient and lp1 family; Verbal order to administer GI cocktail prior to discharge. 21:15 Reassessment: Patient states feeling better. Patient states symptoms have improved. lp1 Vital Signs: 15:55 BP 124 / 74; Pulse 71; Resp 17; Temp 98.6(TE); Pulse Ox 100% on R/A; Weight 54.88 kg tw2 (R); Pain 9/10; 19:10 BP 149 / 71; Pulse 68; Resp 18; Pulse Ox 99% on R/A; Pain 8/10; lp1 19:45 BP 132 / 69; Pulse 67; Resp 18; Pulse Ox 97% on R/A; lp1 21:00 BP 137 / 77; Pulse 68; Resp 18; Pulse Ox 99% on R/A; Pain 4/10; lp1 ED Course: 15:52 Patient arrived in ED. dl4 15:52 Alis Jamison DO is Private Physician. dl4 15:55 Triage completed. tw2 15:55 Arm band placed on. tw2 16:00 Rob Taveras PA is PHCP. cp 16:00 Reji Carson MD is Attending Physician. cp 16:12 Patient has correct armband on for positive identification. Bed in low position. Call sg light in reach. Side rails up X2. Adult w/ patient. Pulse ox on. NIBP on. Warm blanket given. Head of bed elevated. 16:15 Jagdish Ogden, RN is Primary Nurse. sg 16:45 Missed attempt(s): 22 gauge in right antecubital area. Bleeding controlled, band aid dh3 applied, catheter tip intact. 16:50 Missed attempt(s): 24 gauge in right forearm. Bleeding controlled, band aid applied, dh3 catheter tip intact. 16:51 Radiology exam delayed due to lab results not completed at this time. (BUN/Creatinine). vm2 17:30 Radiology exam delayed due to lab results not completed at this time. (BUN/Creatinine). vm2 17:44 Inserted saline lock: 24 gauge in left antecubital area, using aseptic technique. iw 18:22 Radiology exam delayed due to lab results not completed at this time. (BUN/Creatinine). vm2 18:30 PHCP role handed off by Rob Taveras PA pm1 18:30 Macario Guevara NP is PHCP. pm1 18:39 Radiology exam delayed due to lab results not completed at this time. (BUN/Creatinine). nj 19:22 CT Abd/Pelvis - IV Contrast Only In Process Unspecified. EDMS 20:44 No provider procedures requiring assistance completed. lp1 21:10 IV discontinued, No redness/swelling at site. Pressure dressing applied. lp1 Administered Medications: 17:34 Drug: morphine 2 mg Route: IVP; Site: left antecubital; sg 17:35 Drug: NS 0.9% 500 ml Route: IV; Rate: 500 ml/hr; Site: left antecubital; sg 18:30 Follow up: Response: No adverse reaction; IV Status: Completed infusion; IV Intake: sg 500ml 17:35 Drug: Zofran 4 mg Route: IVP; Site: left antecubital; sg 19:12 Drug: morphine 2 mg {Note: RASS 0.} Route: IVP; Site: left antecubital; lp1 19:46 Follow up: Response: Pain is decreased; RASS: Alert and Calm (0) lp1 19:35 Drug: NS 0.9% 1000 ml Route: IV; Rate: 75 ml/hr; Site: left antecubital; lp1 21:15 Follow up: IV Status: IV converted to saline lock lp1 20:54 Drug: morphine 4 mg Route: IVP; Site: left antecubital; lp1 21:15 Follow up: Response: Pain is decreased; RASS: Alert and Calm (0) lp1 21:00 Drug: Pepcid 20 mg Route: IVP; Site: left antecubital; lp1 21:15 Follow up: Response: Medication administered at discharge. lp1 21:00 Drug: GI Cocktail without - (Maalox Suspension 30 ml, Lidocaine Liquid 2 % 15 lp1 ml) Route: PO; 21:15 Follow up: Response: No adverse reaction; Medication administered at discharge. lp1 Intake: 18:30 IV: 500ml; Total: 500ml. sg Outcome: 20:51 Discharge ordered by . pm1 21:15 Discharged to home via wheelchair, with family. lp1 21:15 Condition: good 21:15 Discharge instructions given to patient, Instructed on discharge instructions, follow up and referral plans. Demonstrated understanding of instructions, follow-up care. 21:20 Patient left the ED. lp1 Signatures: Dispatcher [employer] EDMS Jagdish Ogden, RN Shelia Dalton RN Zoey Carrillo RN RN lp1 Rob Taveras, Macario Etienne cp, LICENSED INVESTMENT SALES ASSISTANT LICENSED INVESTMENT SALES ASSISTANT pm1 Joana Knight RN RN 2 Ba Rivera Victoria 2 Anna Tatum 3 Sebastián Farmer dl4 Corrections: (The following items were deleted from the chart) 21:47 21:46 Patient left the ED. lp1 lp1
--- NOTE | 2019-06-06 20:52 | EDPHYS ---
Physician Documentation [facility] Name: Alberto Botello Age: 68 yrs Sex: Female : 1950 Arrival Date: 06/06/2019 Time: 15:52 Bed 15 Private MD: Alis Jamison H ED Physician Reji Carson HPI: 06/06 16:25 This 68 yrs old Female presents to ER via Wheelchair with complaints of Abdominal cp Pain. 16:25 The patient presents with abdominal pain in the left upper quadrant. cp 16:25 Onset: The symptoms/episode began/occurred 4 day(s) ago, and became worse today. cp 16:25 Associated signs and symptoms: Pertinent negatives: blood in stools, constipation, cp diarrhea, dysuria, fever, vomiting. Severity of pain: in the emergency department the pain is unchanged despite home interventions. The patient has experienced similar episodes in the past, multiple times. Historical: - Allergies: 15:56 No Known Allergies; tw2 - Home Meds: 20:10 alprazolam 2 mg Oral tab nightly [Active]; Amitiza 8 mcg Oral cap 1 cap 2 times per day lp1 [Active]; zdzhecwang-koxielalwkifx-siyh 50-325-40 mg Oral cap every 8 hrs as needed for headache [Active]; lisinopril 10 mg Oral tab 1 tab once daily [Active]; metformin 850 mg Oral tab daily [Active]; montelukast 10 mg Oral tab 1 tab once daily [Active]; morphine 30 mg Oral CM24 1 cap once daily [Active]; ranitidine HCl 300 mg Oral cap 1 cap 2 times per day [Active]; - PMHx: 15:56 Chronic pain; Diabetes - NIDDM; Hepatitis; Hypertension; Osteoporosis; Pancreatitis; tw2 - PSHx: 15:56 Hysterectomy; Cholecystectomy; tw2 - Immunization history:: Adult Immunizations. - Social history:: Smoking status: . - Ebola Screening: : Patient denies travel to an Ebola-affected area in the 21 days before illness onset. ROS: 16:30 Constitutional: Negative for body aches, chills, fever, poor PO intake. cp 16:30 Eyes: Negative for injury, pain, redness, and discharge. cp 16:30 ENT: Negative for drainage from ear(s), ear pain, sore throat, difficulty swallowing, difficulty handling secretions. 16:30 Cardiovascular: Negative for chest pain, palpitations. 16:30 Respiratory: Negative for cough, shortness of breath, wheezing. 16:30 Abdomen/GI: Positive for abdominal pain, Negative for vomiting, diarrhea, constipation, abdominal distension, black/tarry stool, rectal bleeding. 16:30 : Negative for urinary symptoms. 16:30 Neuro: Negative for altered mental status, headache, weakness. 16:30 All other systems are negative. Exam: 16:35 Head/Face: Normocephalic, atraumatic. cp 16:35 Constitutional: The patient appears in no acute distress, alert, awake, non-diaphoretic, non-toxic, well developed, well nourished. 16:35 Eyes: Periorbital structures: appear normal, Conjunctiva: normal, no exudate, no cp injection, Sclera: no appreciated abnormality, Lids and lashes: appear normal, bilaterally. 16:35 ENT: External ear(s): are unremarkable, Nose: is normal, Mouth: Lips: moist, Oral mucosa: pink and intact, moist, Posterior pharynx: is normal, airway is patent, no erythema, no exudate. 16:35 Chest/axilla: Inspection: normal, Palpation: is normal, no crepitus, no tenderness. 16:35 Cardiovascular: Rate: normal, Rhythm: regular. 16:35 Respiratory: the patient does not display signs of respiratory distress, Respirations: normal, no use of accessory muscles, no retractions, no splinting, no tachypnea, labored breathing, is not present, Breath sounds: are clear throughout, no decreased breath sounds, no stridor, no wheezing. 16:35 Abdomen/GI: Inspection: scar(s), Bowel sounds: active, all quadrants, Palpation: soft, in all quadrants, moderate abdominal tenderness, in the left upper quadrant, rebound tenderness, is not appreciated, involuntary guarding, is not appreciated. 16:35 Back: pain, is absent, ROM is normal. 16:35 Skin: no rash present. Vital Signs: 15:55 BP 124 / 74; Pulse 71; Resp 17; Temp 98.6(TE); Pulse Ox 100% on R/A; Weight 54.88 kg tw2 (R); Pain 9/10; 19:10 BP 149 / 71; Pulse 68; Resp 18; Pulse Ox 99% on R/A; Pain 8/10; lp1 19:45 BP 132 / 69; Pulse 67; Resp 18; Pulse Ox 97% on R/A; lp1 21:00 BP 137 / 77; Pulse 68; Resp 18; Pulse Ox 99% on R/A; Pain 4/10; lp1 MDM: 16:05 Patient medically screened. cp 20:50 Data reviewed: vital signs. Data interpreted: Pulse oximetry: on room air is 97 %. pm1 Interpretation: normal. Counseling: I had a detailed discussion with the patient and/or guardian regarding: the historical points, exam findings, and any diagnostic results supporting the discharge/admit diagnosis, lab results, radiology results, the need for outpatient follow up, a residential designer, to return to the emergency department if symptoms worsen or persist or if there are any questions or concerns that arise at home. 06/06 16:19 Order name: Basic Metabolic Panel; Complete Time: 20:42 cp 06/06 16:19 Order name: CBC with Diff; Complete Time: 18:32 cp 06/06 16:19 Order name: Creatinine for Radiology; Complete Time: 18:41 cp 06/06 16:19 Order name: Hepatic Function; Complete Time: 20:42 cp 06/06 16:19 Order name: Lipase; Complete Time: 20:42 cp 06/06 16:19 Order name: Urine Microscopic Only; Complete Time: 18:21 cp 06/06 16:20 Order name: Lactate; Complete Time: 20:42 cp 06/06 16:48 Order name: CT Abd/Pelvis - IV Contrast Only; Complete Time: 20:42 cp 06/06 17:32 Order name: Urine Dipstick--Ancillary (enter results); Complete Time: 20:42 sp 06/06 16:19 Order name: IV Saline Lock; Complete Time: 17:35 cp 06/06 16:19 Order name: Labs collected and sent; Complete Time: 17:35 cp 06/06 16:19 Order name: Urine Dipstick-Ancillary (obtain specimen); Complete Time: 17:35 cp Administered Medications: 17:34 Drug: morphine 2 mg Route: IVP; Site: left antecubital; sg 17:35 Drug: NS 0.9% 500 ml Route: IV; Rate: 500 ml/hr; Site: left antecubital; sg 18:30 Follow up: Response: No adverse reaction; IV Status: Completed infusion; IV Intake: sg 500ml 17:35 Drug: Zofran 4 mg Route: IVP; Site: left antecubital; sg 19:12 Drug: morphine 2 mg {Note: RASS 0.} Route: IVP; Site: left antecubital; lp1 19:46 Follow up: Response: Pain is decreased; RASS: Alert and Calm (0) lp1 19:35 Drug: NS 0.9% 1000 ml Route: IV; Rate: 75 ml/hr; Site: left antecubital; lp1 21:15 Follow up: IV Status: IV converted to saline lock lp1 20:54 Drug: morphine 4 mg Route: IVP; Site: left antecubital; lp1 21:15 Follow up: Response: Pain is decreased; RASS: Alert and Calm (0) lp1 21:00 Drug: Pepcid 20 mg Route: IVP; Site: left antecubital; lp1 21:15 Follow up: Response: Medication administered at discharge. lp1 21:00 Drug: GI Cocktail without - (Maalox Suspension 30 ml, Lidocaine Liquid 2 % 15 lp1 ml) Route: PO; 21:15 Follow up: Response: No adverse reaction; Medication administered at discharge. lp1 Disposition: 06/07 09:00 Co-signature as Attending Physician, Reji Carson MD I agree with the assessment and kdr plan of care. Disposition: 06/06/19 20:51 Discharged to Home. Impression: Unspecified abdominal pain, Gastritis, unspecified. - Condition is Stable. - Discharge Instructions: Abdominal Pain, Adult, Gastritis, Adult. - Medication Reconciliation Form, Thank You Letter, Antibiotic Education, Prescription Opioid Use form. - Follow up: Emergency Department; When: As needed; Reason: Worsening of condition. Follow up: Private Physician; When: 2 - 3 days; Reason: Recheck today's complaints, Continuance of care, Re-evaluation by your physician. - Problem is new. - Symptoms have improved. Signatures: Dispatcher [employer] EDJagdish Martinez RN RN sg Rittger, Kevin, MD MD kdr Pena, Laura RN RN lp1 Rob Taveras PA PA cp Marinas, Patrick, DIRECTOR OF NUCLEAR MEDICINE DIRECTOR OF NUCLEAR MEDICINE pm1 Joana Knight, RN RN tw2 Corrections: (The following items were deleted from the chart) 06/06 21:46 20:51 06/06/2019 20:51 Discharged to Home. Impression: Unspecified abdominal pain; lp1 Gastritis, unspecified. Condition is Stable. Forms are Medication Reconciliation Form, Thank You Letter, Antibiotic Education, Prescription Opioid Use. Follow up: Emergency Department; When: As needed; Reason: Worsening of condition. Follow up: Private Physician; When: 2 - 3 days; Reason: Recheck today's complaints, Continuance of care, Re-evaluation by your physician. Problem is new. Symptoms have improved. pm1
[2019-06-06] MEDS ORDERED: LIDOCAINE VISCOUS 2% SOLN 15 ML UDC ONE (21:09)
[2019-06-06] MEDS ORDERED: MAGNE/ALUM HYDROXD 30 ML UCUP ONE (21:09)
[2019-06-06] MEDS ORDERED: FAMOTIDINE 20 MG/2 ML VIAL IV ONE (21:23)
[2019-06-06 21:57] VITALS: TEMP 98.6
[2019-06-06 21:59] VITALS: O2SAT 99
[2019-06-06 22:10] VITALS: BP 137/77
== END 2019-06-06 21:46 | disposition home or self-care (01) ==
LOC: ER 15:49
DX: K29.70 Gastritis, unspecified, without bleeding (principal); I10 Essential (primary) hypertension; E11.9 Type 2 diabetes mellitus without complications
CPT/HCPCS: 85025; 80048; 36415; 80076; 83605; 83690; 74177; Q9967; J2270 ×2; J7030; J2405; 81003; 81015

== ENCOUNTER 2019-09-07 19:17 | Emergency (ER) | payer OTHER ==
[2019-09-07 19:53] LABS: Absolute Lymphocytes (CBC) 2.4 K/uL (0.7-4.9); Basophils % 0.3 % (0-1.3); Hematocrit 32.6 % (36.0-45.0); Lymphocytes % 20.6 % (15.3-44.8); MPV 7.4 fL (7.6-11.3); RBC Red Blood Cell Count 3.63 M/uL (3.86-4.86)
--- NOTE | 2019-09-07 19:59 | RAD REPORT ---
EXAM DESCRIPTION: CT - Head Brain Wo Cont - 09/07/2019 7:49 pm CLINICAL HISTORY: Memory loss/weakness COMPARISON: 2018 TECHNIQUE: Computed axial tomography of the head was obtained. IV contrast was not requested. All CT scans are performed using dose optimization technique as appropriate and may include automated exposure control or mA/KV adjustment according to patient size. FINDINGS: An intracranial bleed is not seen . The ventricles are normal in caliber. No extra-axial fluid collection is noted. Mild cerebral and cerebellar atrophy is noted. Fluid within the sinuses/ mastoids is not seen. IMPRESSION: No acute intracranial abnormality is seen. If patient's symptoms persist MRI of the bra in would be recommended.
[2019-09-07 20:01] LABS: Protime INR 0.93
[2019-09-07 20:11] LABS: ALT/SGPT 35 U/L (12-78); AST/SGOT 25 U/L (15-37); Albumin 3.5 g/dL (3.4-5.0); Alkaline Phosphatase 77 U/L (45-117); BUN Blood Urea Nitrogen 34 mg/dL (7-18); Bicarbonate 28 mmol/L (21-32); Bilirubin Direct < 0.1 mg/dL (0-0.2); Bilirubin Total 0.2 mg/dL (0.2-1.0); CKMB Creatine Kinase MB 2.4 ng/mL (0.3-3.6); Creatine Phosphokinase 122 U/L (26-192); Glucose Level 106 mg/dL (74-106); Lipase 206 U/L (73-393); Magnesium 2.2 mg/dL (1.8-2.4); Protein, Total 8.3 g/dL (6.4-8.2); Sodium Level 138 mmol/L (136-145); Troponin (Emerg Dept Use Only) < 0.02 ng/mL (0.0-0.045)
[2019-09-07 21:07] LABS: Urine Blood 1+ (NEG); Urine Glucose NEGATIVE (NEG); Urine Protein NEGATIVE (NEG); Urine Specific Gravity 1.025 (1.005-1.030)
[2019-09-07 21:17] LABS: Barbiturates NEGATIVE (NEGATIVE); Benzodiazepines POSITIVE (NEGATIVE); Cocaine NEGATIVE (NEGATIVE); METHAMPHETAM NEGATIVE (NEGATIVE); Methadone NEGATIVE (NEGATIVE); Opiates NEGATIVE (NEGATIVE); Phencyclidine NEGATIVE (NEGATIVE); THC Cannibis NEGATIVE (NEGATIVE)
[2019-09-07] MEDS ORDERED: CEFTRIAXONE/SWI 1gm 1 GM/10 ML SYR ONE (21:46)
[2019-09-07 22:16] LABS: Urine Bacteria 20-50 /HPF (<20); Urine Culture Reflex Order REFLEXED; Urine RBC <5 /HPF (NONE SEEN)
--- NOTE | 2019-09-07 23:11 | ER ---
Nurse's Notes [facility] Name: Alberto Botello Age: 69 yrs Sex: Female : 1950 Arrival Date: 09/07/2019 Time: 19:19 Bed 4 Private MD: Alis Jamison H Diagnosis: Urinary tract infection, site not specified Presentation: 09/07 19:26 Presenting complaint: daughter states pt has been having memory problems for approx one bb month she took her to physician for depression and pt was placed on a lot of medication but over the last couple of days the pt seems to have forgotten quite a lot of information. Transition of care: patient was not received from another setting of care. Onset of symptoms is unknown. Risk Assessment: Do you want to hurt yourself or someone else? Patient reports no desire to harm self or others. Initial Sepsis Screen: Does the patient meet any 2 criteria? No. Patient's initial sepsis screen is negative. Does the patient have a suspected source of infection? No. Patient's initial sepsis screen is negative. Care prior to arrival: None. 19:26 Method Of Arrival: Ambulatory bb 19:26 Acuity: ART 2 bb Historical: - Allergies: 19:43 No Known Allergies; bb - Home Meds: 19:43 alprazolam 2 mg Oral tab nightly [Active]; Amitiza 8 mcg Oral cap 1 cap 2 times per day bb [Active]; lisinopril 10 mg Oral tab 1 tab once daily [Active]; benztropine 1 mg Oral tab 1 tab once daily [Active]; Linzess 145 mcg oral cap 1 cap once daily [Active]; citalopram 20 mg tab 1 tab once daily [Active]; risperadone [Active]; - PMHx: 19:43 Chronic pain; Diabetes - NIDDM; Hepatitis; Hypertension; Osteoporosis; Pancreatitis; bb - PSHx: 19:43 Hysterectomy; Cholecystectomy; bb - Immunization history:: Adult Immunizations up to date. - Social history:: Smoking status: unknown. - Ebola Screening: : Patient negative for fever greater than or equal to 101.5 degrees Fahrenheit, and additional compatible Ebola Virus Disease symptoms Patient denies exposure to infectious person Patient denies travel to an Ebola-affected area in the 21 days before illness onset. Screenin:55 Abuse screen: Denies threats or abuse. Denies injuries from another. Nutritional rr5 screening: No deficits noted. Tuberculosis screening: No symptoms or risk factors identified. Fall Risk Secondary diagnosis (15 points) possible stroke. IV access (20 points). Mental Status- Overestimates/Forgets Limitations (15 pts.). Total Huffman Fall Scale indicates High Risk Score (45 or more points). Fall prevention measures have been instituted. Side Rails Up X 2 Placed Close to Nursing Station Frequent Obs/Assessments Occuring Family Present and informed to notify staff if the need to leave the bedside As available patient and family educated on Fall Prevention Program and Strategies. Assessment: 19:50 General: Appears in no apparent distress. comfortable, Behavior is calm, cooperative. rr5 19:50 Pain: Denies pain. Neuro: Level of Consciousness is awake, alert, obeys commands, rr5 Oriented to person, place, time, situation, Radiation Safety Officer are equal bilaterally Moves all extremities. Full function Gait is steady, Speech is normal, Facial symmetry appears normal, Pupils are PERRLA, Reports biostatistics professor reported she is having episodes of forgetfulness. Cardiovascular: Capillary refill < 3 seconds Patient's skin is warm and dry. Respiratory: Airway is patent Respiratory effort is even, unlabored, Respiratory pattern is regular, symmetrical. GI: No signs and/or symptoms were reported involving the gastrointestinal system. : No signs and/or symptoms were reported regarding the genitourinary system. EENT: No signs and/or symptoms were reported regarding the EENT system. Derm: Skin is intact, is healthy with good turgor, Skin temperature is warm. Musculoskeletal: Circulation, motion, and sensation intact. Capillary refill < 3 seconds. 21:00 Reassessment: Patient appears in no apparent distress at this time. No changes from rr5 previously documented assessment. Patient and/or family updated on plan of care and expected duration. Pain level reassessed. Patient is alert, oriented x 3, equal unlabored respirations, skin warm/dry/pink. awaiting UDS result. 22:15 Reassessment: Patient appears in no apparent distress at this time. No changes from rr5 previously documented assessment. Patient is alert, oriented x 3, equal unlabored respirations, skin warm/dry/pink. no complaints made, resting on bed comfortably. awaiting for review. 23:30 Reassessment: Patient appears in no apparent distress at this time. Patient is alert, rr5 oriented x 3, equal unlabored respirations, skin warm/dry/pink. discharge instruction given and explained to biostatistics professor without complaints made, verbalized understading. Vital Signs: 19:43 BP 155 / 93; Pulse 96; Resp 16 S; Temp 98.3(O); Pulse Ox 97% on R/A; Weight 56.7 kg bb (R); Height 5 ft. 0 in. (152.40 cm) (R); 20:20 BP 137 / 80; Pulse 90; Resp 17; Pulse Ox 98% on R/A; rr5 21:20 BP 152 / 89; Pulse 80; Resp 16; Pulse Ox 98% on R/A; rr5 22:10 BP 141 / 70; Pulse 83; Resp 16; Pulse Ox 98% ; rr5 23:10 BP 133 / 65; Pulse 76; Resp 19; Temp 98.1; Pulse Ox 99% on R/A; rr5 19:43 Body Mass Index 24.41 (56.70 kg, 152.40 cm) bb Angelita Coma Score: 19:50 Eye Response: spontaneous(4). Verbal Response: oriented(5). Motor Response: obeys rr5 commands(6). Total: 15. 20:20 Eye Response: spontaneous(4). Verbal Response: oriented(5). Motor Response: obeys rr5 commands(6). Total: 15. 21:20 Eye Response: spontaneous(4). Verbal Response: oriented(5). Motor Response: obeys rr5 commands(6). Total: 15. 22:10 Eye Response: spontaneous(4). Verbal Response: oriented(5). Motor Response: obeys rr5 commands(6). Total: 15. 23:10 Eye Response: spontaneous(4). Verbal Response: oriented(5). Motor Response: obeys rr5 commands(6). Total: 15. ED Course: 19:19 Patient arrived in ED. es 19:19 Alis Jamison DO is Private Physician. es 19:33 Ryan Gonzalez MD is Attending Physician. tw4 19:39 Davis Alamo RN is Primary Nurse. rr5 19:40 Triage completed. bb 19:43 Arm band placed on Patient placed in an exam room, on a stretcher, on pulse oximetry. bb Family accompanied patient. 19:45 Inserted saline lock: 20 gauge in right forearm, using aseptic technique. Blood rr5 collected. 19:49 CT Head Brain wo Cont In Process Unspecified. EDMS 19:50 Patient has correct armband on for positive identification. Placed in gown. Bed in low rr5 position. Call light in reach. Side rails up X2. Adult w/ patient. patient monitor on. Pulse ox on. NIBP on. 23:09 Alis Jamison DO is Referral Physician. tw4 23:30 No provider procedures requiring assistance completed. IV discontinued, intact, rr5 bleeding controlled, No redness/swelling at site. Pressure dressing applied. Administered Medications: 21:50 Drug: Rocephin - (cefTRIAXone) 1 grams Route: IVPB; Infused Over: 30 mins; Site: right rr5 forearm; 22:50 Follow up: Response: No adverse reaction; IV Status: Completed infusion rr5 Outcome: 23:09 Discharge ordered by . tw4 23:30 Discharged to home via wheelchair, with family. rr5 23:30 Condition: stable 23:30 Discharge instructions given to family, Instructed on discharge instructions, follow up and referral plans. medication usage, Demonstrated understanding of instructions, follow-up care, medications, Prescriptions given X 1. 23:38 Patient left the ED. rr5 Signatures: Dispatcher [employer] Abimbola Valverde Brenda RN RN Ryan Siu MD MD tw4 Davis Alamo RN RN rr5
--- NOTE | 2019-09-07 23:11 | EDPHYS ---
Physician Documentation [facility] Name: Alberto Botello Age: 69 yrs Sex: Female : 1950 Arrival Date: 09/07/2019 Time: 19:19 Bed 4 Private MD: Alis Jamison H ED Physician Ryan Gonzalez HPI: 09/08 05:45 This 69 yrs old Female presents to ER via Ambulatory with complaints of S/S of Possible tw4 Stroke. 05:45 The patient's problem is reported as altered mental status. Onset: The symptoms/episode tw4 began/occurred 2 day(s) ago, and improved today. Duration: This was a single incident. Context: the episode(s) was witnessed, by family, daughter, PT BECAME FORGETFUL HAD MEMORY LOSS. The patient has not experienced similar symptoms in the past. Historical: - Allergies: 09/07 19:43 No Known Allergies; bb - Home Meds: 19:43 alprazolam 2 mg Oral tab nightly [Active]; Amitiza 8 mcg Oral cap 1 cap 2 times per day bb [Active]; lisinopril 10 mg Oral tab 1 tab once daily [Active]; benztropine 1 mg Oral tab 1 tab once daily [Active]; Linzess 145 mcg oral cap 1 cap once daily [Active]; citalopram 20 mg tab 1 tab once daily [Active]; risperadone [Active]; - PMHx: 19:43 Chronic pain; Diabetes - NIDDM; Hepatitis; Hypertension; Osteoporosis; Pancreatitis; bb - PSHx: 19:43 Hysterectomy; Cholecystectomy; bb - Immunization history:: Adult Immunizations up to date. - Social history:: Smoking status: unknown. - Ebola Screening: : Patient negative for fever greater than or equal to 101.5 degrees Fahrenheit, and additional compatible Ebola Virus Disease symptoms Patient denies exposure to infectious person Patient denies travel to an Ebola-affected area in the 21 days before illness onset. ROS: 09/08 05:45 Constitutional: Negative for fever, chills, and weight loss, Eyes: Negative for injury, tw4 pain, redness, and discharge, Cardiovascular: Negative for chest pain, palpitations, and edema, Respiratory: Negative for shortness of breath, cough, wheezing, and pleuritic chest pain, Abdomen/GI: Negative for abdominal pain, nausea, vomiting, diarrhea, and constipation, Back: Negative for injury and pain, MS/Extremity: Negative for injury and deformity, Skin: Negative for injury, rash, and discoloration. Neuro: Positive for altered mental status, Negative for dizziness, gait disturbance, headache, hearing loss, seizure activity, speech changes, syncope, near syncope. Exam: 05:45 Radiologist reports: NORMAL tw4 05:45 Constitutional: This is a well developed, well nourished patient who is awake, alert, and in no acute distress. Head/Face: Normocephalic, atraumatic. Chest/axilla: Normal chest wall appearance and motion. Nontender with no deformity. No lesions are appreciated. Cardiovascular: Regular rate and rhythm with a normal S1 and S2. No gallops, murmurs, or rubs. Normal PMI, no JVD. No pulse deficits. Respiratory: Lungs have equal breath sounds bilaterally, clear to auscultation and percussion. No rales, rhonchi or wheezes noted. No increased work of breathing, no retractions or nasal flaring. Abdomen/GI: Soft, non-tender, with normal bowel sounds. No distension or tympany. No guarding or rebound. No evidence of tenderness throughout. Back: No spinal tenderness. No costovertebral tenderness. Full range of motion. MS/ Extremity: Pulses equal, no cyanosis. Neurovascular intact. Full, normal range of motion. Neuro: Awake and alert, GCS 15, oriented to person, place, time, and situation. Cranial nerves II-XII grossly intact. Motor strength 5/5 in all extremities. Sensory grossly intact. Cerebellar exam normal. Normal gait. Vital Signs: 09/07 19:43 BP 155 / 93; Pulse 96; Resp 16 S; Temp 98.3(O); Pulse Ox 97% on R/A; Weight 56.7 kg bb (R); Height 5 ft. 0 in. (152.40 cm) (R); 20:20 BP 137 / 80; Pulse 90; Resp 17; Pulse Ox 98% on R/A; rr5 21:20 BP 152 / 89; Pulse 80; Resp 16; Pulse Ox 98% on R/A; rr5 22:10 BP 141 / 70; Pulse 83; Resp 16; Pulse Ox 98% ; rr5 23:10 BP 133 / 65; Pulse 76; Resp 19; Temp 98.1; Pulse Ox 99% on R/A; rr5 19:43 Body Mass Index 24.41 (56.70 kg, 152.40 cm) bb Angelita Coma Score: 19:50 Eye Response: spontaneous(4). Verbal Response: oriented(5). Motor Response: obeys rr5 commands(6). Total: 15. 20:20 Eye Response: spontaneous(4). Verbal Response: oriented(5). Motor Response: obeys rr5 commands(6). Total: 15. 21:20 Eye Response: spontaneous(4). Verbal Response: oriented(5). Motor Response: obeys rr5 commands(6). Total: 15. 22:10 Eye Response: spontaneous(4). Verbal Response: oriented(5). Motor Response: obeys rr5 commands(6). Total: 15. 23:10 Eye Response: spontaneous(4). Verbal Response: oriented(5). Motor Response: obeys rr5 commands(6). Total: 15. MDM: 19:33 Patient medically screened. tw09/08 05:45 Differential diagnosis: CVA, TIA, Dementia, drug effects. Data reviewed: vital signs, tw4 nurses notes. Data reviewed: lab test result(s), CBC, electrolytes, urinalysis, bacteruria, pyuria. Counseling: I had a detailed discussion with the patient and/or guardian regarding: the historical points, exam findings, and any diagnostic results supporting the discharge/admit diagnosis, lab results, radiology results. 09/07 19:33 Order name: UDS; Complete Time: 21:24 tw4 09/07 21:24 Interpretation: Normal except: BZO POSITIVE. tw4 09/07 19:33 Order name: Basic Metabolic Panel; Complete Time: 21:13 tw4 09/07 21:13 Interpretation: Normal except: BUN 34; GFR 43. tw4 09/07 19:33 Order name: CBC with Diff; Complete Time: 21:13 tw4 09/07 21:13 Interpretation: Normal except: WBC 11.8; RBC 3.63; HGB 10.8; HCT 32.6; MPV 7.4; NEUT A tw4 8.3. 09/07 19:33 Order name: Ckmb; Complete Time: 21:13 tw4 09/07 19:33 Order name: CPK; Complete Time: 21:13 tw4 09/07 19:33 Order name: Hepatic Function; Complete Time: 21:13 tw4 09/07 21:13 Interpretation: Normal except: TP 8.3; GLOB 4.8; A/G 0.7. tw4 09/07 19:33 Order name: Lipase; Complete Time: 21:13 tw4 09/07 19:33 Order name: Magnesium; Complete Time: 21:13 tw09/07 19:33 Order name: Protime (+inr); Complete Time: 21:13 tw09/07 19:33 Order name: Ptt, Activated; Complete Time: 21:13 tw09/07 19:33 Order name: Troponin (emerg Dept Use Only); Complete Time: 21:13 tw09/07 21:03 Order name: Urine Dipstick--Ancillary (enter results); Complete Time: 21:13 ar5 09/07 21:25 Order name: UA MICROSCOPIC; Complete Time: 22:40 bb 09/07 22:40 Interpretation: Abnormal. 09/07 22:20 Order name: Urine Culture EDMS 09/07 19:33 Order name: CT Head Brain wo Cont; Complete Time: 21:13 tw09/07 19:33 Order name: EKG; Complete Time: 19:35 tw4 09/07 19:33 Order name: Cardiac monitoring; Complete Time: 19:49 09/07 19:33 Order name: EKG - Nurse/Tech; Complete Time: 19:49 09/07 19:33 Order name: IV Saline Lock; Complete Time: 19:49 09/07 19:33 Order name: Labs collected and sent; Complete Time: 19:49 09/07 19:33 Order name: NPO; Complete Time: 19:49 09/07 19:33 Order name: O2 Per Protocol; Complete Time: 19:49 09/07 19:33 Order name: O2 Sat Monitoring; Complete Time: 19:50 tw09/07 19:33 Order name: Urine Dipstick-Ancillary (obtain specimen); Complete Time: 21:02 tw4 EC:45 Rate is 94 beats/min. Rhythm is regular. QRS [place] is Normal. OH interval is normal. QRS tw4 interval is normal. QT interval is normal. No Q waves. T waves are Normal. No ST changes noted. Clinical impression: NSR w/ Non-specific ST/T Changes. Interpreted by me. Reviewed by me. Administered Medications: 09/07 21:50 Drug: Rocephin - (cefTRIAXone) 1 grams Route: IVPB; Infused Over: 30 mins; Site: right rr5 forearm; 22:50 Follow up: Response: No adverse reaction; IV Status: Completed infusion rr5 Disposition: 09/07/19 23:09 Discharged to Home. Impression: Urinary tract infection, site not specified. - Condition is Stable. - Discharge Instructions: Urinary Tract Infection, Adult. - Prescriptions for Macrobid 100 mg Oral Capsule - take 1 capsule by ORAL route every 12 hours for 10 days; 20 capsule. - Medication Reconciliation Form, Thank You Letter, Antibiotic Education, Prescription Opioid Use form. - Follow up: Alis Jamison DO; When: Upon discharge from the Emergency Department; Reason: Recheck today's complaints, Continuance of care. Signatures: Dispatcher [employer] EDIza Garcia RN RN Ryan Siu MD MD tw4 Davis Alamo RN RN rr5 Corrections: (The following items were deleted from the chart) 23:38 23:09 09/07/2019 23:09 Discharged to Home. Impression: Urinary tract infection, site rr5 not specified. Condition is Stable. Forms are Medication Reconciliation Form, Thank You Letter, Antibiotic Education, Prescription Opioid Use. Follow up: Alis Jamison; When: Upon discharge from the Emergency Department; Reason: Recheck today's complaints, Continuance of care. tw4
[2019-09-07 23:49] VITALS: TEMP 98.3
[2019-09-07 23:50] VITALS: O2SAT 98
[2019-09-07 23:51] VITALS: BP 152/89
--- NOTE | 2019-09-09 11:46 | EKG ---
Test Date: 2019-09-07 Test Time: 19:37:23 Test Driller: VANCE MEASUREMENT RESULTS: Intervals: Rate: 94 SD: 132 QRSD: 76 QT: 348 QTc: 435 [place]: P: 60 SD: 132 QRS: 18 T: 49 INTERPRETIVE STATEMENTS: Normal sinus rhythm RSR' or QR pattern in V1 suggests right ventricular conduction delay Nonspecific T wave abnormality Abnormal ECG Compared to ECG 12/12/2018 20:12:20 RSR' in V1 or V2 now present Possible ischemia no longer present T-wave abnormality still present Electronically Signed On 09-09-19 11:42:27 [employer] by Darrin Saldaña
== END 2019-09-07 23:38 | disposition home or self-care (01) ==
LOC: ER 19:17
DX: N39.0 Urinary tract infection, site not specified (principal); I10 Essential (primary) hypertension; E11.9 Type 2 diabetes mellitus without complications
CPT/HCPCS: 96365; 93005; 87088; 85025; 87086; 80048; 36415; 83735; 82550; 85610; 80076; 80307 ×8; 85730; 84484; 82553; 83690; 70450; 99284; J0696; 81003; 81015

== ENCOUNTER 2019-09-17 14:12 | Emergency (ER) | payer OTHER ==
[2019-09-17] MEDS ORDERED: NA CHLORIDE 0.9% 1,000 ML ONE (14:55)
[2019-09-17 15:02] LABS: Absolute Lymphocytes (CBC) 1.8 K/uL (0.7-4.9); Basophils % 0.2 % (0-1.3); Hematocrit 33.9 % (36.0-45.0); Lymphocytes % 19.1 % (15.3-44.8); MPV 7.2 fL (7.6-11.3); RBC Red Blood Cell Count 3.82 M/uL (3.86-4.86)
[2019-09-17 15:05] LABS: Protime INR 0.95
[2019-09-17 15:22] LABS: ALT/SGPT 34 U/L (12-78); AST/SGOT 27 U/L (15-37); Alkaline Phosphatase 72 U/L (45-117); BUN Blood Urea Nitrogen 24 mg/dL (7-18); Bicarbonate 28 mmol/L (21-32); Bilirubin Direct < 0.1 mg/dL (0-0.2); Bilirubin Total 0.3 mg/dL (0.2-1.0); Glucose Level 96 mg/dL (74-106); Lipase 143 U/L (73-393); Magnesium 2.3 mg/dL (1.8-2.4); NT PRO-BNP 212 pg/mL (<125); Potassium 4.1 mmol/L (3.5-5.1); Protein, Total 8.8 g/dL (6.4-8.2); Sodium Level 135 mmol/L (136-145); Troponin (Emerg Dept Use Only) < 0.02 ng/mL (0.0-0.045)
[2019-09-17] MEDS ORDERED: MORPHINE 4 MG/ML SYR ONE (15:53)
[2019-09-17] MEDS ORDERED: ONDANSETRON 4 MG/2 ML VIAL ONE (15:54)
[2019-09-17 16:19] LABS: Urine Blood 1+ (NEG); Urine Glucose NEGATIVE (NEG); Urine Protein NEGATIVE (NEG); Urine Specific Gravity <1.005 (1.005-1.030); Urine pH 5.5 (5.0-7.0)
--- NOTE | 2019-09-17 17:04 | RAD REPORT ---
EXAM DESCRIPTION: CT - Head C Spine Mpr Wo Con - 09/17/2019 4:52 pm CLINICAL HISTORY: Head and neck pain. Radiculopathy COMPARISON: August 2019 TECHNIQUE: Computed axial tomography of the head and cervical spine was obtained. Sagittal and coronal reconstruction was performed. All CT scans are performed using dose optimization technique as appropriate and may include automated exposure control or mA/KV adjustment according to patient size. FINDINGS: An intracranial bleed is not seen. The ventricles are normal in caliber. An extra-axial fl uid collection is not noted.Fluid within the visualized sinuses and mastoids is not seen A cervical fracture is not visualized. No dislocation is noted. Central spinal stenosis is not noted. The neural foramina appear patent IMPRESSION: No acute intracranial abnormality is seen. A cervical fracture is not visualized. If the patient continues to have symptoms to suggest intracranial /spinal cord/ spinal canal patholog y then MRI would be recommended
--- NOTE | 2019-09-17 17:12 | RAD REPORT ---
EXAM DESCRIPTION: CT - Abdomen Pelvis W Contrast - 09/17/2019 4:52 pm CLINICAL HISTORY: Abdominal pain. COMPARISON: None. TECHNIQUE: Computed axial tomography of the abdomen and pelvis was obtained. 100 cc Isovue-300 is ad ministered intravenously. Oral contrast was given. All CT scans are performed using dose optimization technique as appropriate and may include automated exposure control or mA/KV adjustment according to patient size. FINDINGS: Small hiatal hernia Cholecystectomy. Pneumobilia with prominence of the biliary tree. Spleen, pancreas, adrenals and kidneys appear unremarkable. There is no evidence of diverticulitis Cement has been placed into an L1 vertebral fracture. Hysterectomy IMPRESSION: Pneumobilia with prominence of the biliary tree presumably physiologic. Pathology can al so result in this appearance and should be correlated clinically and with appropriate lab values
--- NOTE | 2019-09-17 17:13 | RAD REPORT ---
EXAM DESCRIPTION: Jose Single View09/17/2019 2:54 pm CLINICAL HISTORY: Abdominal pain COMPARISON: May 2019 FINDINGS: The lungs appear clear of acute infiltrate. The heart is normal size IMPRESSION: No acute abnormalities displayed
--- NOTE | 2019-09-17 17:45 | ER ---
Nurse's Notes [facility] Name: Alberto Botello Age: 69 yrs Sex: Female : 1950 Arrival Date: 09/17/2019 Time: 14:16 Bed 30 Private MD: Alis Jamison H Diagnosis: Abdominal tenderness;Type 2 diabetes mellitus;Other chronic pain Presentation: 09/17 14:23 Presenting complaint: Child states: but her stomach hurts on the LEFT side and low back tw2 hurts, i took her to Dr. Hernandez for pain medicine but with stomach pain he cant treat for back pain he can treat but to have her stomach checked out. 3 or 4 days she has been hurting, just finished antibiotics for urinary tract infection but she is saying it takes her a long time to start urinating. Transition of care: patient was not received from another setting of care. Onset of symptoms was September 17, 2019. Risk Assessment: Do you want to hurt yourself or someone else? Patient reports no desire to harm self or others. Initial Sepsis Screen: Does the patient meet any 2 criteria? No. Patient's initial sepsis screen is negative. Does the patient have a suspected source of infection? No. Patient's initial sepsis screen is negative. Care prior to arrival: None. 14:23 Method Of Arrival: Ambulatory tw2 14:23 Acuity: ART 3 tw2 Triage Assessment: 14:25 General: Appears uncomfortable, Behavior is calm, cooperative, appropriate for age. tw2 Pain: Complains of pain in abdomen. GI: Reports lower abdominal pain, upper abdominal pain. : Reports urgency. Historical: - Allergies: 14:27 No Known Allergies; tw2 - Home Meds: 14:27 Linzess 145 mcg Oral cap 1 cap once daily [Active]; alprazolam 2 mg Oral tab nightly tw2 [Active]; lisinopril 10 mg Oral tab 1 tab once daily [Active]; citalopram 20 mg tab 1 tab once daily [Active]; risperadone [Active]; benztropine 1 mg Oral tab 1 tab once daily [Active]; Amitiza 8 mcg Oral cap 1 cap 2 times per day [Active]; - PMHx: 14:27 Chronic pain; Diabetes - NIDDM; Hepatitis; Hypertension; Osteoporosis; Pancreatitis; tw2 - PSHx: 14:27 Hysterectomy; Cholecystectomy; tw2 - Immunization history:: Adult Immunizations. - Social history:: Smoking status: . - Ebola Screening: : Patient denies travel to an Ebola-affected area in the 21 days before illness onset. Screenin:18 Abuse screen: Denies threats or abuse. Denies injuries from another. Nutritional rv screening: No deficits noted. Tuberculosis screening: No symptoms or risk factors identified. Fall Risk None identified. Assessment: 15:17 General: Appears in no apparent distress. comfortable, Behavior is calm, cooperative. rv Pain: Complains of pain in right flank Pain radiates to right lower quadrant. Neuro: Level of Consciousness is awake, alert, obeys commands, Oriented to person, place, time, situation. Cardiovascular: Patient's skin is warm and dry. Respiratory: Airway is patent. 15:18 GI: Abdomen is flat, non-distended, Bowel sounds present X 4 quads. Abd is soft and non rv tender X 4 quads. 16:36 Reassessment: patient taken to CT scan. Patient states feeling better. rv 17:30 Reassessment: Patient appears in no apparent distress at this time. Patient and/or rv family updated on plan of care and expected duration. Pain level reassessed. Patient is alert, oriented x 3, equal unlabored respirations, skin warm/dry/pink. Vital Signs: 14:26 BP 155 / 80; Pulse 90; Resp 17; Temp 98.9(TE); Pulse Ox 97% on R/A; Weight 54.43 kg tw2 (R); Height 5 ft. 0 in. (152.40 cm); Pain 7/10; 15:18 Pulse 77; Resp 17; Pulse Ox 98% ; rv 15:18 BP 153 / 85; rv 16:15 BP 145 / 82; Pulse 77; Resp 18; Pulse Ox 97% on R/A; rv 17:30 BP 147 / 78; Pulse 82; Resp 17; Pulse Ox 97% on R/A; rv 18:11 BP 140 / 76; Pulse 78; Resp 17; Pulse Ox 98% on R/A; rv 14:26 Body Mass Index 23.44 (54.43 kg, 152.40 cm) tw2 ED Course: 14:16 Patient arrived in ED. ag5 14:16 Alis Jamison DO is Private Physician. ag5 14:25 Triage completed. tw2 14:25 Arm band placed on. tw2 14:31 Rob Galo MD is Attending Physician. sarah 14:45 Inserted saline lock: 22 gauge in left forearm, using aseptic technique. Blood jp3 collected. Patient maintains SpO2 saturation greater than 95% on room air. 14:45 Initial lab(s) drawn, by de, sent to lab. X-ray(s) taken. jp3 14:50 Manuel Zelaya, RN is Primary Nurse. rv 15:06 XRAY Chest (1 view) In Process Unspecified. EDMS 15:18 Patient has correct armband on for positive identification. Pulse ox on. NIBP on. rv 15:37 EKG done, by biofuels production technician. reviewed by Rob Galo MD. at1 17:06 CT Abd/Pelvis - PO and IV Contrast In Process Unspecified. EDMS 17:06 CT Head C Spine In Process Unspecified. EDMS 17:41 Alis Jamison DO is Referral Physician. sarah 18:11 No provider procedures requiring assistance completed. IV discontinued, intact, rv bleeding controlled, No redness/swelling at site. Pressure dressing applied. Administered Medications: 15:00 Drug: NS 0.9% 1000 ml Route: IV; Rate: 125 ml/hr; Site: left antecubital; rv 18:11 Follow up: IV Status: Completed infusion rv Outcome: 17:42 Discharge ordered by . sarah 18:11 Discharged to home ambulatory, with family. rv 18:11 Condition: good 18:11 Discharge instructions given to family, Instructed on discharge instructions, follow up and referral plans. medication usage, Demonstrated understanding of instructions, follow-up care, medications, Prescriptions given X 4. 18:12 Patient left the ED. rv Signatures: Dispatcher [employer] EDNM Rob Galo MD MD cha Gonzales, Amanda, unit aide EKG Tat1 Joana Knight, RN RN tw2 Manuel Zelaya, RN RN rv Keith Nugyen jp3 Vanna Marcum ag5
--- NOTE | 2019-09-17 17:45 | EDPHYS ---
Physician Documentation [facility] Name: Alberto Botello Age: 69 yrs Sex: Female : 1950 Arrival Date: 09/17/2019 Time: 14:16 Bed 30 Private MD: Alis Jamison H ED Physician Rob Galo HPI: 09/17 15:02 This 69 yrs old Female presents to ER via Ambulatory with complaints of Abdominal sarah Pain, Back Pain. Historical: - Allergies: 14:27 No Known Allergies; tw2 - Home Meds: 14:27 Linzess 145 mcg Oral cap 1 cap once daily [Active]; alprazolam 2 mg Oral tab nightly tw2 [Active]; lisinopril 10 mg Oral tab 1 tab once daily [Active]; citalopram 20 mg tab 1 tab once daily [Active]; risperadone [Active]; benztropine 1 mg Oral tab 1 tab once daily [Active]; Amitiza 8 mcg Oral cap 1 cap 2 times per day [Active]; - PMHx: 14:27 Chronic pain; Diabetes - NIDDM; Hepatitis; Hypertension; Osteoporosis; Pancreatitis; tw2 - PSHx: 14:27 Hysterectomy; Cholecystectomy; tw2 - Immunization history:: Adult Immunizations. - Social history:: Smoking status: . - Ebola Screening: : Patient denies travel to an Ebola-affected area in the 21 days before illness onset. ROS: 15:05 Constitutional: Negative for fever, chills, and weight loss, Eyes: Negative for injury, sarah pain, redness, and discharge, ENT: Negative for injury, pain, and discharge, Neck: Negative for injury, pain, and swelling, Cardiovascular: Negative for chest pain, palpitations, and edema, Respiratory: Negative for shortness of breath, cough, wheezing, and pleuritic chest pain, : Negative for injury, bleeding, discharge, and swelling, MS/Extremity: Negative for injury and deformity, Skin: Negative for injury, rash, and discoloration, Neuro: Negative for headache, weakness, numbness, tingling, and seizure, Psych: Negative for depression, anxiety, suicide ideation, homicidal ideation, and hallucinations, Allergy/Immunology: Negative for hives, rash, and allergies, Endocrine: Negative for neck swelling, polydipsia, polyuria, polyphagia, and marked weight changes, Hematologic/Lymphatic: Negative for swollen nodes, abnormal bleeding, and unusual bruising. 15:05 Abdomen/GI: Positive for abdominal pain, of the posterior aspect of right lateral abdomen, posterior aspect of left lateral abdomen, right upper quadrant, left upper quadrant, right lower quadrant and left lower quadrant. Exam: 15:05 Constitutional: This is a well developed, well nourished patient who is awake, alert, sarah and in no acute distress. Eyes: Pupils equal round and reactive to light, extra-ocular motions intact. Lids and lashes normal. Conjunctiva and sclera are non-icteric and not injected. Cornea within normal limits. Periorbital areas with no swelling, redness, or edema. ENT: Nares patent. No nasal discharge, no septal abnormalities noted. Tympanic membranes are normal and external auditory canals are clear. Oropharynx with no redness, swelling, or masses, exudates, or evidence of obstruction, uvula midline. Mucous membranes moist. Neck: Trachea midline, no thyromegaly or masses palpated, and no cervical lymphadenopathy. Supple, full range of motion without nuchal rigidity, or vertebral point tenderness. No Meningismus. Chest/axilla: Normal chest wall appearance and motion. Nontender with no deformity. No lesions are appreciated. Cardiovascular: Regular rate and rhythm with a normal S1 and S2. No gallops, murmurs, or rubs. Normal PMI, no JVD. No pulse deficits. Respiratory: Lungs have equal breath sounds bilaterally, clear to auscultation and percussion. No rales, rhonchi or wheezes noted. No increased work of breathing, no retractions or nasal flaring. Abdomen/GI: Soft, non-tender, with normal bowel sounds. No distension or tympany. No guarding or rebound. No evidence of tenderness throughout. Back: No spinal tenderness. No costovertebral tenderness. Full range of motion. Skin: Warm, dry with normal turgor. Normal color with no rashes, no lesions, and no evidence of cellulitis. MS/ Extremity: Pulses equal, no cyanosis. Neurovascular intact. Full, normal range of motion. Neuro: Awake and alert, GCS 15, oriented to person, place, time, and situation. Cranial nerves II-XII grossly intact. Motor strength 5/5 in all extremities. Sensory grossly intact. Cerebellar exam normal. Normal gait. Psych: Awake, alert, with orientation to person, place and time. Behavior, mood, and affect are within normal limits. 15:05 Head/face: Noted is contusion, ecchymosis, that is mild, of the top of head, forehead and right eye. 15:05 Neck: Exam negative for acute changes. Vital Signs: 14:26 BP 155 / 80; Pulse 90; Resp 17; Temp 98.9(TE); Pulse Ox 97% on R/A; Weight 54.43 kg tw2 (R); Height 5 ft. 0 in. (152.40 cm); Pain 7/10; 15:18 Pulse 77; Resp 17; Pulse Ox 98% ; rv 15:18 BP 153 / 85; rv 16:15 BP 145 / 82; Pulse 77; Resp 18; Pulse Ox 97% on R/A; rv 17:30 BP 147 / 78; Pulse 82; Resp 17; Pulse Ox 97% on R/A; rv 18:11 BP 140 / 76; Pulse 78; Resp 17; Pulse Ox 98% on R/A; rv 14:26 Body Mass Index 23.44 (54.43 kg, 152.40 cm) tw2 MDM: 14:31 Patient medically screened. [facility] 15:08 Data reviewed: vital signs, nurses notes, lab test result(s), EKG, radiologic studies, [facility] CT scan, plain films. 09/17 14:31 Order name: Basic Metabolic Panel; Complete Time: 15:57 [facility] 09/17 14:31 Order name: CBC with Diff; Complete Time: 15:57 [facility] 09/17 14:31 Order name: LFT's; Complete Time: 15:57 [facility] 09/17 14:31 Order name: Magnesium; Complete Time: 15:57 [facility] 09/17 14:31 Order name: NT PRO-BNP; Complete Time: 15:57 [facility] 09/17 14:31 Order name: PT-INR; Complete Time: 15:57 [facility] 09/17 14:31 Order name: Troponin (emerg Dept Use Only); Complete Time: 15:57 [facility] 09/17 14:31 Order name: XRAY Chest (1 view); Complete Time: 17:38 [facility] 09/17 14:31 Order name: Lipase; Complete Time: 15:57 [facility] 09/17 14:31 Order name: Urine Culture [facility] 09/17 14:31 Order name: CT Abd/Pelvis - PO and IV Contrast; Complete Time: 17:25 [facility] 09/17 15:05 Order name: CT Head C Spine; Complete Time: 17:25 [facility] 09/17 16:12 Order name: Urine Dipstick--Ancillary (enter results) 09/17 16:20 Order name: Urine Dipstick-Ancillary; Complete Time: 16:37 EDMS 09/17 14:31 Order name: EKG; Complete Time: 14:33 [facility] 09/17 14:31 Order name: Cardiac monitoring; Complete Time: 14:51 [facility] 09/17 14:31 Order name: EKG - Nurse/Tech; Complete Time: 16:17 [facility] 09/17 14:31 Order name: IV Saline Lock; Complete Time: 14:51 [facility] 09/17 14:31 Order name: Labs collected and sent; Complete Time: 14:51 [facility] 09/17 14:31 Order name: O2 Per Protocol; Complete Time: 14:52 [facility] 09/17 14:31 Order name: O2 Sat Monitoring; Complete Time: 14:52 [facility] 09/17 14:31 Order name: Urine Dipstick-Ancillary (obtain specimen); Complete Time: 16:17 [facility] Administered Medications: 15:00 Drug: NS 0.9% 1000 ml Route: IV; Rate: 125 ml/hr; Site: left antecubital; rv 18:11 Follow up: IV Status: Completed infusion rv Disposition: 09/17/19 17:42 Discharged to Home. Impression: Abdominal tenderness, Type 2 diabetes mellitus, Other chronic pain. - Condition is Stable. - Discharge Instructions: Abdominal Pain, Adult, Chronic Pain, Flank Pain, Adult, Abdominal Pain, Adult, [id number], Flank Pain, [id number]. - Prescriptions for Bentyl 20 mg Oral Tablet - take 1 tablet by ORAL route every 6 hours As needed; 20 tablet. Pepcid 20 mg Oral Tablet - take 1 tablet by ORAL route every 12 hours for 10 days; 20 tablet. Tylenol- Codeine #3 300-30 mg Oral Tablet - take 1 tablet by ORAL route every 4 hours As needed; 20 tablet. Zofran 4 mg Oral Tablet - take 1 tablet by ORAL route every 12 hours As needed; 20 tablet. - Medication Reconciliation Form, Thank You Letter, Antibiotic Education, Prescription Opioid Use form. - Follow up: Alis Jamison DO; When: 2 - 3 days; Reason: Recheck today's complaints, Continuance of care, Re-evaluation by your physician. - Problem is new. - Symptoms have improved. Signatures: Dispatcher [employer] EDMS Rob Galo MD MD cha Wise, Tara, RN RN tw2 Manuel Zelaya RN RN rv Corrections: (The following items were deleted from the chart) 18:12 17:42 09/17/2019 17:42 Discharged to Home. Impression: Abdominal tenderness; Type 2 rv diabetes mellitus; Other chronic pain. Condition is Stable. Forms are Medication Reconciliation Form, Thank You Letter, Antibiotic Education, Prescription Opioid Use. Follow up: Alis Jamison; When: 2 - 3 days; Reason: Recheck today's complaints, Continuance of care, Re-evaluation by your physician. Problem is new. Symptoms have improved. sarah
[2019-09-17 18:47] VITALS: TEMP 98.9
[2019-09-17 18:53] VITALS: BP 140/76; O2SAT 98
--- NOTE | 2019-09-18 09:00 | EKG ---
Test Date: 2019-09-17 Test Time: 15:34:25 [facility]: [facility] MEASUREMENT RESULTS: Intervals: Rate: 78 AL: 148 QRSD: 82 QT: 380 QTc: 433 [place]: P: 66 AL: 148 QRS: 38 T: 79 INTERPRETIVE STATEMENTS: Normal sinus rhythm RSR' or QR pattern in V1 suggests right ventricular conduction delay Nonspecific T wave abnormality Abnormal ECG Compared to ECG 09/07/2019 19:37:23 No significant changes Electronically Signed On 09-18-19 08:58:01 FINANCIAL SYSTEMS ANALYST by Darrin Saldaña
== END 2019-09-17 18:12 | disposition home or self-care (01) ==
LOC: ER 14:12
DX: G89.29 Other chronic pain (principal); M54.9 Dorsalgia, unspecified; E11.9 Type 2 diabetes mellitus without complications; I10 Essential (primary) hypertension
CPT/HCPCS: 96361; 93005; 87088; 85025; 80048; 36415; 83735; 85610; 80076; 81003; 84484; 83690; 83880; 70450; 72125; 74177; 71045; 96360; 99285; Q9967; J7030; J2405; 87086

== ENCOUNTER 2021-03-06 15:31 | Emergency (ER) | payer OTHER ==
--- OUTSIDE RECORDS SUMMARY | 2021-03-06 15:34 | XMS REPORT | Continuity of Care Document ---
:1950 Author Organization [facility] t Address [address] [place] [address] Care Team Providers Name Role Phone Camila Osorio Attending Clinician JO Attending Clinician Unavailable Yoandy Parker Attending Clinician Chema Attending Clinician Yoandy Parker Admitting Clinician Problems Condition Condition Condition Status Onset Resolution Last Treating Co mments Source Name Details Category Date Date Treatment Clinician Date R51 - Diagnosis Active 2018-02-24 Mem oria HEADACHE 02-03 07:04:00 l R51 - 00:01: [place] HEADACHE 00 Active 02/03/2018 [facility] MILD Diagnosis Active 2016-03-23 Mem oria STEATOSIS 03-23 12:46:00 l MILD 12:44: [place] STEATOSIS 00 Active 03/23/2016 [facility] BDDC - F/U Diagnosis Active 2015-12-16 Memoria 12-07 15:27:00 l BDDC - 00:00: [place] F/U 00 Active 12/08/2015 [facility] R10.9 - Diagnosis Active 2015-12-11 Me moria UNSPECIFIE - 12:56:00 l D R10.9 - 00:01: [place] ABDOMINAL UNSPECIFIE 00 PAIN D ABDOMINAL PAIN Active 12/04/2015 [facility] [place] FOLLOW UP Diagnosis Active 2015-12-16 Memoria 11-27 15:18:00 l FOLLOW 00:00: [place] UP 00 Active 6 [facility] STOMACH Diagnosis Active 2015-11-24 Me moria PAIN - 13:16:00 l SELF STOMACH 00:00: [place] REFERRAL PAIN 00 SELF REFERRAL Active 11/14/2015 [facility] Hypertensi Problem Active 2018-02-11 M emoria ve 01:51:21 l disorder, [place] systemic Hypertensi arterial ve (disorder) disorder, systemic arterial (disorder) Active Problem 02/11/2018 [facility], HILARIA Anderson d, WILLD Marko MEDICAL Diagnosis Active 2015-12-16 Me moria SERVICES 15:18:00 l NOT MEDICAL [place] AVAILABLE SERVICES IN HOME NOT AVAILABLE IN HOME Active [facility] ALCOHOLIC Diagnosis Active 2015-12-16 Memoria FATTY 15:27:00 l LIVER [place] ALCOHOLIC FATTY LIVER Active [facility] 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-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 Jeannette nn DEFORMITIE SPECIFIED S CONGENITAL DEFORMITIE S Active [facility] FATTY Diagnosis Active 2016-03-23 Mem oria (CHANGE 12:46:00 l OF) LIVER, FATTY Jeannette nn NOT (CHANGE ELSEWHERE OF) LIVER, C NOT ELSEWHERE C Active [facility] New onset New onset Problem Active Uni vers of of HL7.CCDAR2 [place] after age after age Phys ici [age] ans History of History of Problem Resolve Univers Chronic Chronic HL7.CCDAR2 d ity of midline midline [place] low back low back Physic i pain pain ans without without sciatica sciatica Medication Medication Problem Active U nivers overuse overuse HL7.CCDAR2 ity of headache headache [place] Physici ans Abdominal Problem Active 2018-02-11 Me moria pain 01:51:21 l (finding) [place] Abdominal pain (finding) Active Problem 02/11/2018 [facility], [facility] Anxiety Problem Active 2018-02-11 Keith cayla (finding) 01:51:21 l Anxiety [place] (finding) Active Problem 02/11/2018 [facility], [facility]ID [facility], [facility] [place] Chronic Problem Active 2018-02-11 Keith cayla hepatitis 01:51:21 l C Chronic [place] (disorder) hepatitis C (disorder) Active Problem 02/11/2018 [facility], OPID [facility] d, [facility] Depressive Problem Active 2018-02-11 M emoria disorder 01:51:21 l (disorder) Ramiro n Depressive disorder (disorder) Active Problem 02/11/2018 [facility], [place] [facility]ude [facility], [place] Hoffman Problem Active 2018-02-11 M daniella r calculus 01:51:21 l (disorder) Ramiro Masseybladde r calculus (disorder) Active Problem 02/11/2018 [facility], HILARIA miranda, HILARIA Zhu Allergies, Adverse Reactions, Alerts This patient has no known allergies or adverse reactions. Family History Family Member Diagnosis Comments Start Date Stop Date Source Father Family history of [facility] [place] lung cancer Physicians Social History Smoking Status Start Date Stop Date Source Social History [facility] Medications Ordered Filled Start Stop Current Ordering Indication Dosage Frequency Signature Comments Components Source Medication Medication Date Date Medication? Clinician (SIG) Name Name Evonneiptbalaji Whytemelviniptyli Yes HOLLIE TAKE 1 Univers ne HCl - 25 ne HCl - 25 5-30 JO M.D. CAPSULE AT ity of MG Oral MG Oral 00:00: BEDTIME. Arnie as Capsule Capsule 00 Physici ans Hemocyte Hemocyte Yes R.N. Unive rs Plus 106-1 Plus 106-1 5-23 ity of MG Oral MG Oral 00:00: [place] Capsule Capsule 00 Physici ans Lisinopril Lisinopril Yes R.N. Q0.5D TAKE 1 Univers 10 MG Oral 10 MG Oral 5-23 TABLET i ty of Tablet Tablet 00:00: TWICE [place] 00 DAILY. Physici ans MetFORMIN MetFORMIN Yes R.N. .5 Q0.5D TAKE 0.5 Univers HCl - 850 HCl - 850 5-23 TABLET ity of MG Oral MG Oral 00:00: TWICE [place] Tablet Tablet 00 DAILY Physici ans Vitamin D3 Vitamin D3 Yes R.N. TAKE Univers 5000 UNIT 5000 UNIT 5-23 DIRECTED. ity of Oral Oral 00:00: [place] Capsule Capsule 00 Physici ans ALPRAZolam ALPRAZolam Yes R.N. TAKE 1 Univers 2 MG Oral 2 MG Oral 5-23 TABLET AT ity of Tablet Tablet 00:00: BEDTIME. [place] 00 Physici ans Omeprazole Omeprazole Yes R.N. 1 QD TAKE 1 Univers 40 MG Oral 40 MG Oral 5-23 CAPSULE ity of Capsule Capsule 00:00: DAILY [place] Delayed Delayed 00 Physici Release Release ans Morphine Morphine Yes R.N. 1.5 Q0.5D TAKE 1.5 Univers Sulfate 30 Sulfate 30 - TABLET i ty of MG Oral MG Oral 00:00: TWICE [place] Tablet Tablet 00 DAILY Physici ans MethylPREDN MethylPREDN Yes HOLLIE Medrol Univers ISolone 4 ISolone 4 -23 JO M.DKenrick dose lior ity of MG Oral MG Oral 00:00: (24 mg [place] Tablet Tablet 00 with Physici Therapy Therapy tapering ans Pack Pack dose to 4 mg over 6 days) MDD:24mg linaclotide Yes 145 Memori a 0.145 MG 4-05 microgram l Oral 20:42: = 1 cap, [place] Capsule 00 PO, Daily, [Linzess] 30 minutes prior to the first meal of the day, # 30 cap, 0 Refill(s) oxybutynin Yes 15 mg = 1 Me moria 15 mg oral 3-14 tab, PO, l tablet, 18:20: Daily, # Ramiro n extended 00 30 tab, 0 release Refill(s) lubiproston Yes 8 Memori a e 0.008 MG 3-14 microgram l Oral 18:20: = 1 cap, [place] Capsule 00 PO, BID, # [Amitiza] 60 tab, 0 Refill(s) linaclotide Yes 145 Memori a 0.145 MG 3-14 microgram l Oral 18:20: = 1 cap, [place] Capsule 00 PO, Daily, [Linzess] 30 minutes prior to the first meal of the day, # 30 cap, 0 Refill(s) Acetaminoph Yes 1 - 2 Memor ia en 300 MG / 3-14 tablets, l Codeine 18:20: PO, Daily, Herm vilma Phosphate 00 PRN Pain, 30 MG Oral # 60 tab, Tablet 0 [Tylenol Refill(s) with Codeine #3] ranitidine Yes 300 mg = 1 M emoria 300 mg oral 3-14 tab, PO, l tablet 18:20: Bedtime, # Jeannette nn 00 30 tab, 0 Refill(s) lisinopril Yes 5 mg = 1 Mem oria 5 mg oral 3-14 tab, PO, l tablet 18:20: Daily, # [place] 00 30 tab, 0 Refill(s) Metoclopram 2016 Yes 5 mg = 1 Me moria kun 5 MG 3-14 tab, PO, l Oral Tablet 18:20: BID, 0 Herm vilma 00 Refill(s) Alprazolam Yes 2 mg = 1 Mem oria 2 MG Oral 3-14 tab, PO, l Tablet 18:20: Daily, PRN Jeannette nn 00 Anxiety, 0 Refill(s) dexlansopra 2016 Yes 60 mg = 1 M emoria zole 60 MG 3-14 cap, PO, l Enteric 18:20: Daily, # Ramiro n Coated 00 30 day, 0 Capsule Refill(s) [Dexilant] morphine 30 Yes 30 mg = 1 M emoria mg oral 3-14 tab, PO, l tablet 18:20: Q4H, PRN [place] 00 Pain, 0 Refill(s) Vital Signs Vital Name Observation Time Observation Value Comments Source BP Systolic 2018-02-01 131 mm[Hg] Location: [facility] 08:36:00 Position: [place] Physician s Sitting BP Diastolic 2018-02-01 78 mm[Hg] Location: [facility] 08:36:00 Position: [place] Physician s Sitting Height 2018-02-01 60 [in_us] [facility] 08:36:00 [place] Physician s Weight 2018-02-01 117 [lb_av] [facility] 08:36:00 [place] Physician s Body Mass Index 2018-02-01 22.85 kg/m2 [place] [facility] Calculated 08:36:00 [place] Physician s Heart Rate 2018-02-01 73 /min Location: R [facility] 08:36:00 Brachial [place] Physician s Artery; Systolic (mm Hg) 2015-12-16 [facility] 20:34:00 Diastolic (mm Hg) 2015-12-16 [facility] H ermann 20:34:00 Weight 2015-12-16 Kasie Ramiro n 20:34:00 Height 2015-12-16 152.4 cm Kasie Ramiro n 20:34:00 Respitory Rate 2015-12-16 [facility] 20:34:00 BMI Calculated 2015-12-16 [facility] 20:34:00 BMI Calculated 2015-12-02 [facility] 19:50:00 Weight 2015-12-02 [facility] Ramiro n 19:50:00 Height 2015-12-02 152.4 cm [facility] Ramiro n 19:50:00 Systolic (mm Hg) 2015-12-02 [facility] 19:50:00 Diastolic (mm Hg) 2015-12-02 [facility] 19:50:00 Respitory Rate 2015-12-02 [facility] 19:50:00 Systolic (mm Hg) 2015-11-24 [facility] 18:19:00 Diastolic (mm Hg) 2015-11-24 [facility] 18:19:00 Height 2015-11-24 180.34 cm [facility] Ramiro n 18:19:00 Heart Rate 2015-11-24 [facility] Ramiro n 18:19:00 BMI Calculated 2015-11-24 [facility] 18:19:00 Weight 2015-11-24 [facility] Ramiro n 18:19:00 Procedures Procedure Date / Time Performing Clinician Source Performed MRI Brain wo contrast 2018-02-08 00:00:00 [facility] [id number] Physicians MRI Brain w/wo contrast 2018-02-01 00:00:00 [facility] [id number] Physicians Biopsy of liver [facility] Cataract surgery [facility] Ramiro n Colonoscopy [facility] Endoscopy [facility] Hysterectomy [facility] MRI of abdomen [facility] MRI of kidneys [facility] Ultrasound [facility] History of Gallbladder [facility] surgery Physicians Encounters Start End Encounter Admission Attending Care Care Encounter Source Date/Time Date/Time Type Type Clinicians Facility Department ID 2018-02-08 2018-02-08 Outpatient Jo [id number] 13:20:00 23:59:00 Hollie Jensen [id number] 2018-02-01 2018-02-01 Appointmen BRENDAN OSORIO Neurology [id number] Univers 08:00:00 08:00:00 t; HOLLIE OSORIO ity of CHRIST[place], M.D. [place] Miguel Angel Physici ans 2016-03-23 2016-03-23 Outpatient [facility] [id number] 12:44:00 23:59:00 Eddi Vigil 2016-03-23 2016-03-23 Outpatient [facility] [id number] 11:35:00 23:59:00 Roseanna Vigil 2015-12-16 2015-12-16 Outpatient Tiana [facility] [id number] 15:20:00 23:59:00 Tahira Vigil 2015-12-11 2015-12-11 [facility] [id number] 13:01:00 23:59:00 Atilla 2015-12-02 2015-12-02 Outpatient Ertvan, [facility] [id number] 14:23:00 23:59:00 Atilla 2015-11-24 2015-11-24 Outpatient Ertvan, [facility] [id number] 13:06:00 23:59:00 Atilla 01 Results Test Description Test Time Test Comments Results Result Sourc e Comments MRI Brain wo 2018-01-12 Patient Name: RIYA Uni versity of contrast [id number] THI TRANDOB: [place] 16:25:00 1950. Age: 67 Physi cians years. Gender: Female.MR: [id number]. Location: [facility]. Provider: Hollie Osorio MD.EXAM: Brain wo contrast MRI.PROVIDED CLINICAL HISTORY: Headaches for 2 months with pain radiating down theentire right side of the body. R51 Headache TECHNIQUE: Multi-sequence, multi-planar MR of the brain without gadoliniumcontrast. COMPARISON: No relevant prior exams available at the time of interpretation. FINDINGS: BRAIN: -- Mild confluent abnormally increased T2 and FLAIR signal throughout thesupratentorial periventricular deep white matter bilaterally, non-specific butmost commonly due to chronic small vessel ischemic disease.-- No areas of abnormally-restricted diffusion in a pattern suggestive ofacute or early subacute ischemia. No intracranial hemorrhage. No other fluidcollection. No intracranial mass. No cerebellar tonsillar ectopia.Age-consisten t brain parenchymal volume. VENTRICLES / CISTERNS / SHIFT: No hydrocephalus. No significant effacement ofthe basal cisterns or foramen magnum. No significant midline shift. VESSELS: No loss of flow voids within the major intracranial vessels or duralsinuses. Vessel and dural sinus patency are not adequately assessed withoutdedicated angiography or venography. BONES / SCALP: No acute fracture. No significant systemic marrow signalabnormality. No aggressive bony lesions. No significant extracranial softtissue abnormality.IMAGED SINUSES / MASTOIDS: No significant sinus mucosal thickening. Nosignificant paranasal sinus fluid. No significant mastoid signal abnormality. IMPRESSIO N: No acute intracranial abnormality. Mild chronic microangiopathic ischemic gliosis. SL: [id number] by: Finesse Dias MDDictated Date/time: 02/08/18 17:31Electronically Signed by: Finesse Dias MD 02/08/1817:40FINAL REPORT MRI Brain w/wo contrast [id number] 2018-02-08 13:39:00 Test Item Value Reference Range Interpretation Comme nts Brain w/wo contrast MRI (test code = Brain w/wo Cancel Reason: Exam Replaced contrast MRI) [facility] Physicians
[2021-03-06] MEDS ORDERED: ONDANSETRON 4 MG/2 ML VIAL ONE (19:09)
[2021-03-06] MEDS ORDERED: MORPHINE 2 MG/ML SYR ONE (19:09)
[2021-03-06] MEDS ORDERED: DIAZEPAM 10 MG/2 ML INJ SYRINGE ONE (19:09)
[2021-03-06] MEDS ORDERED: HYDROCODONE/APAP 5/325 MG TAB ONE (19:48)
[2021-03-06] MEDS ORDERED: DIAZEPAM 5 MG TABLET ONE (19:48)
[2021-03-06] MEDS ORDERED: ONDANSETRON 4 MG (ODT) TAB ONE (19:49)
--- NOTE | 2021-03-06 19:58 | RAD REPORT ---
EXAM DESCRIPTION: CT - CTHCSPWOC - 03/06/2021 7:42 pm CLINICAL HISTORY: Trauma, head and neck injury. fall, head injury COMPARISON: Head C Spine Mpr Wo Con dated 09/17/2019 TECHNIQUE: Axial 5 mm thick images of the head were obtained. Axial 2 mm thick images of the cervical spine were obtained with sagittal and coronal reconstruction images generated and reviewed. All CT scans are performed using dose optimization technique as appropriate and may include automated exposure control or mA/KV adjustment according to patient size. FINDINGS: CT HEAD WITHOUT CONTRAST: No acute hemorrhage, hydrocephalus or extra-axial collection is identified.No areas of brain edema or midline shift. The paranasal sinuses and mastoids are clear.The calvarium is intact. CT CERVICAL SPINE WITHOUT CONTRAST: No fracture or subluxation.No prevertebral soft tissues swelling is identified. IMPRESSION: No acute intracranial or cervical spine findings.
--- NOTE | 2021-03-06 20:01 | RAD REPORT ---
EXAM DESCRIPTION: CT - Spine Lumbar Wo Con - 03/06/2021 7:42 pm CLINICAL HISTORY: Radiculopathy. low back pain COMPARISON: Spine Lumbar Wo Con dated 01/27/2016; LUMBAR SPINE W O CONTRAST dated 01/18/2015; Lumbar Sp ine Wo Con dated 09/18/2018 TECHNIQUE: Axial noncontrast CT imaging of the lumbar spine was performed with coronal and sagittal re-formatted images. All CT scans are performed using dose optimization technique as appropriate and may include automated exposure control or mA/KV adjustment according to patient size. FINDINGS: No acute lumbar spine fracture seen. No aggressive marrow pattern or malalignment. Mild L1 compression deformity containing vertebroplasty cement. This is a chronic finding. Paraspinal tissues are normal in thickness. No paraspinal abscess or hematoma seen. Prominent posterior disc bulge is seen with narrowing of the central canal CT L3-4, L4-5 and L5- S1. IMPRESSION: No acute lumbar spine abnormality is present Moderate lower lumbar degenerative spondylosis. Follow-up MR imaging may be of value for further carlos acterization.
--- NOTE | 2021-03-06 20:20 | ER ---
Nurse's Notes [facility] Name: Alberto Botello Age: 70 yrs Sex: Female : 1950 Arrival Date: 03/06/2021 Time: 15:33 Bed 8 Private MD: Alis Jamison H Diagnosis: Postconcussional syndrome;Muscle spasm of back Presentation: 03/06 15:47 Chief complaint: Patient's son or daughter states: Pt had a fall three weeks ago and kg hit her head on a massage chair. The pain has steadily got worse. She saw her PCP Dr. Graeme Nicolas 03/02 and they gave her [id number] but it hasnt helped. Care prior to arrival: None. 15:47 Acuity: ART 3 kg 15:47 Method Of Arrival: Ambulatory kg 15:51 Mechanism of Injury: Fall. kg 15:55 Coronavirus screen: Client denies travel out of the [place] in the last 14 days. At this kg time, unable to obtain information related to travel outside the [place] At this time, the client does not indicate any symptoms associated with coronavirus-19. Ebola Screen: Patient negative for fever greater than or equal to 101.5 degrees Fahrenheit, and additional compatible Ebola Virus Disease symptoms Patient denies exposure to infectious person. Patient denies travel to an Ebola-affected area in the 21 days before illness onset. Initial Sepsis Screen: Does the patient meet any 2 criteria? No. Patient's initial sepsis screen is negative. Does the patient have a suspected source of infection? No. Patient's initial sepsis screen is negative. Risk Assessment: Do you want to hurt yourself or someone else? Patient reports no desire to harm self or others. Onset of symptoms was February 13, 2021. Historical: - Allergies: 19:16 No Known Allergies; jl7 - Home Meds: 16:02 alprazolam 2 mg Oral tab nightly [Active]; Amitiza 24 mcg oral cap 1 cap [Active]; kg lisinopril 10 mg Oral tab 1 tab once daily [Active]; Linzess 145 mcg Oral cap 1 cap once daily [Active]; citalopram 20 mg tab 1 tab once daily [Active]; risperadone 0.5 daily [Active]; tramadol 50 mg Oral tab 1 tab every 6 hours for pain [Active]; famotidine 20 mg Oral tab 1 tab 2 times per day [Active]; Fish Oil 1,200 (144-216) mg oral cap daily [Active]; Vitamin D Oral 50,000 unit daily [Active]; Slow-Mag 71.5 mg Oral TbEC daily [Active]; risedronate oral 70 oral 1 tab once daily [Active]; - PMHx: 16:02 Hypertension; Chronic pain; Diabetes - NIDDM; Hepatitis; Osteoporosis; Pancreatitis; kg Anxiety; - Immunization history:: Adult Immunizations up to date, Client reports receiving the 2nd dose of the Covid vaccine. - Social history:: Smoking status: Patient denies any tobacco usage or history of. Screenin:51 Abuse screen: Denies threats or abuse. Denies injuries from another. Nutritional kg screening: No deficits noted. Tuberculosis screening: No symptoms or risk factors identified. Fall Risk None identified. Primary Survey: 15:54 NO uncontrolled hemorrhage observed. A: The patient is alert. Airway: patent. kg Breathing/Chest: Respiratory pattern: regular, Respiratory effort: spontaneous, unlabored, Breath sounds: clear, bilaterally. Chest inspection: symmetrical rise and fall of the chest. Circulation: Skin color: pink, Skin temperature: warm. Disability Alert. Assessment: 15:51 General: Appears uncomfortable, Behavior is calm, cooperative, appropriate for age, kg quiet. Pain: Complains of pain in face Pain radiates to back Pain currently is 10 out of 10 on a pain scale. at worst was 10 out of 10 on a pain scale. Quality of pain is described as aching. 15:51 Musculoskeletal: Bruising BUE, Son stated its self inflicted to help treat the pain in kg her culture. 18:45 General: Appears in no apparent distress. uncomfortable, Behavior is cooperative, jl7 appropriate for age, anxious. Pain: Complains of pain in HERNANDEZ Pain currently is 10 out of 10 on a pain scale. Neuro: Level of Consciousness is awake, alert, obeys commands, Oriented to person, place, time, situation. Cardiovascular: Patient's skin is warm and dry. Respiratory: Airway is patent Respiratory effort is even, unlabored, Respiratory pattern is regular, symmetrical. Derm: Skin is pink, warm \T\ dry. 20:40 Reassessment: Patient and/or family updated on plan of care and expected duration. Pain ea level reassessed. Patient is alert, oriented x 3, equal unlabored respirations, skin warm/dry/pink. Discharge instruction given to patient verbalized the understanding of instruction. Pt left ED via wheelchair. Accompanied by family. Vital Signs: 15:55 BP 163 / 87; Pulse 83; Resp 20; Temp 98.6(O); Pulse Ox 98% on R/A; Height 4 ft. 10 in. kg (147.32 cm); Pain 10/10; 20:30 BP 132 / 68; Pulse 70; Resp 18; Temp 98; Pulse Ox 99% on R/A; ea ED Course: 15:33 Patient arrived in ED. am2 15:34 Alis Jamison DO is Private Physician. am2 15:51 Triage completed. kg 15:55 Arm band placed on right wrist. kg 16:03 Patient has correct armband on for positive identification. kg 17:38 Steven Shea PA is PHCP. jm 17:38 Rob Galo MD is Attending Physician. [facility] 18:44 Jonas Navarro RN is Primary Nurse. jl7 18:45 Missed attempt(s): 22 gauge in right forearm. Bleeding controlled, band aid applied, jl7 catheter tip intact. 18:55 Missed attempt(s): 22 gauge in left antecubital area. Bleeding controlled, band aid jl7 applied, catheter tip intact. 19:41 CT Head C Spine In Process Unspecified. EDMS 19:41 CT Lumbar Spine Wo Con In Process Unspecified. EDMS 20:04 Primary Nurse role handed off by Jonas Navarro RN mw2 20:19 Alis Jamison DO is Referral Physician. [facility] 20:25 Kathleen Ross RN is Primary Nurse. ea Administered Medications: 19:32 Not Given (Other Intervention Used): Zofran (Ondansetron) 4 mg IVP once; over 2 minutes bb 19:32 Not Given (Other Intervention Used): Valium (diazepam) 2 mg IVP once bb 19:33 Not Given (Other Intervention Used): morphine 2 mg IVP once; RASS on ADMIN: Combtv4, bb Very Agttd3, Agttd2, Rstlss1, AlertClm0, Drwsy-1, Lt Sdtn-2, Mod Sdtn-3, Dp Sdtn-4, UnArsble-5 19:35 Drug: [place] (HYDROcodone-acetaminophen) 5 mg-325 mg 2 tabs {Note: RASS 0.} Route: PO; bb 20:42 Follow up: Response: No adverse reaction ea 19:36 Drug: Valium (diazepam) 5 mg Route: PO; bb 20:42 Follow up: Response: No adverse reaction ea 19:36 Drug: Zofran (Ondansetron) 4 mg Route: PO; bb 20:42 Follow up: Response: No adverse reaction ea 20:35 Drug: morphine 4 mg Route: IM; Site: left gluteus; ea 20:42 Follow up: Response: No adverse reaction ea Outcome: 20:19 Discharge ordered by . carri 20:41 Patient left the ED. mw2 Signatures: Dispatcher [employer] EDMS Steven Shea PA PA jmm Ballard, Brenda, RN RN Jonas Bonilla, RN RN jl7 Ami Johnson am2 Kathleen Ross RN RN Babak Esparza mw2 Desiree West RN RN kg Corrections: (The following items were deleted from the chart) 15:52 15:47 Chief complaint: Patient's son or daughter states: Pt had a fall three weeks ago kg and hit her head. The pain has steadily got worse. She saw her PCP Dr. Graeme Nicolas 03/02 and they gave her [id number] but it hasnt helped. kg
--- NOTE | 2021-03-06 20:20 | EDPHYS ---
Physician Documentation [facility] Name: Alberto Botello Age: 70 yrs Sex: Female : 1950 Arrival Date: 03/06/2021 Time: 15:33 Bed 8 Private MD: Alis Jamison H ED Physician Rob Galo HPI: 03/06 18:28 This 70 yrs old Female presents to ER via Ambulatory with complaints of Fall Injury, jmm Head Injury-Adult. 18:28 Details of fall: The patient fell from an upright position. Onset: The symptoms/episode jmm began/occurred acutely, 3 week(s) ago. Associated injuries: The patient sustained injury to the head, injury to the low back. It is unknown whether or not the patient has had similar symptoms in the past. Patient complains of ongoing headache, neck pain, lower back pain since the fall. MRI scheduled for . Advised to go to the ED due to ongoing pain. . Historical: - Allergies: 19:16 No Known Allergies; jl7 - Home Meds: 16:02 alprazolam 2 mg Oral tab nightly [Active]; Amitiza 24 mcg oral cap 1 cap [Active]; kg lisinopril 10 mg Oral tab 1 tab once daily [Active]; Linzess 145 mcg Oral cap 1 cap once daily [Active]; citalopram 20 mg tab 1 tab once daily [Active]; risperadone 0.5 daily [Active]; tramadol 50 mg Oral tab 1 tab every 6 hours for pain [Active]; famotidine 20 mg Oral tab 1 tab 2 times per day [Active]; Fish Oil 1,200 (144-216) mg oral cap daily [Active]; Vitamin D Oral 50,000 unit daily [Active]; Slow-Mag 71.5 mg Oral TbEC daily [Active]; risedronate oral 70 oral 1 tab once daily [Active]; - PMHx: 16:02 Hypertension; Chronic pain; Diabetes - NIDDM; Hepatitis; Osteoporosis; Pancreatitis; kg Anxiety; - Immunization history:: Adult Immunizations up to date, Client reports receiving the 2nd dose of the Covid vaccine. - Social history:: Smoking status: Patient denies any tobacco usage or history of. ROS: 18:28 Constitutional: Negative for fever, chills, and weight loss, Cardiovascular: Negative [facility] for chest pain, palpitations, and edema, Respiratory: Negative for shortness of breath, cough, wheezing, and pleuritic chest pain. 18:28 Neck: Positive for pain with movement. 18:28 Back: Positive for pain with movement. 18:28 Neuro: Positive for headache. 18:28 All other systems are negative. Exam: 18:28 Constitutional: This is a well developed, well nourished patient who is awake, alert, jmm and in no acute distress. Head/Face: atraumatic. Eyes: EOMI, no conjunctival erythema appreciated ENT: Moist Mucus Membranes 18:28 Chest/axilla: Normal chest wall appearance and motion. Cardiovascular: Regular rate and rhythm. No edema appreciated Respiratory: Normal respirations, no respiratory distress appreciated Abdomen/GI: Non distended, soft 18:28 Neck: painful rom, right sided pain on palpation. 18:28 Back: right lower lumbar pain on palpation. 18:28 Musculoskeletal/extremity: ROM: intact in all extremities. 18:28 Skin: Appearance: Color: normal in color. 18:28 Neuro: Orientation: is normal, Mentation: is normal, Memory: is normal. 18:28 Psych: Behavior/mood is pleasant, cooperative. Vital Signs: 15:55 BP 163 / 87; Pulse 83; Resp 20; Temp 98.6(O); Pulse Ox 98% on R/A; Height 4 ft. 10 in. kg (147.32 cm); Pain 10/10; 20:30 BP 132 / 68; Pulse 70; Resp 18; Temp 98; Pulse Ox 99% on R/A; ea MDM: 18:25 Patient medically screened. [facility] 20:15 Data reviewed: vital signs, nurses notes. Counseling: I had a detailed discussion with [facility] the patient and/or guardian regarding: the historical points, exam findings, and any diagnostic results supporting the discharge/admit diagnosis, radiology results, the need for outpatient follow up, to return to the emergency department if symptoms worsen or persist or if there are any questions or concerns that arise at home. ED course: NARX score 280. I discussed pro's con of narcotic medication with the patient, daugher. Daughter will closely monitor the patient.. 03/06 18:27 Order name: CT Head C Spine; Complete Time: 20:06 [facility] 03/06 18:27 Order name: CT Lumbar Spine Wo Con; Complete Time: 20:06 [facility] Administered Medications: 19:32 Not Given (Other Intervention Used): Zofran (Ondansetron) 4 mg IVP once; over 2 minutes bb 19:32 Not Given (Other Intervention Used): Valium (diazepam) 2 mg IVP once bb 19:33 Not Given (Other Intervention Used): morphine 2 mg IVP once; RASS on ADMIN: Combtv4, bb Very Agttd3, Agttd2, Rstlss1, AlertClm0, Drwsy-1, Lt Sdtn-2, Mod Sdtn-3, Dp Sdtn-4, UnArsble-5 19:35 Drug: [place] (HYDROcodone-acetaminophen) 5 mg-325 mg 2 tabs {Note: RASS 0.} Route: PO; bb 20:42 Follow up: Response: No adverse reaction ea 19:36 Drug: Valium (diazepam) 5 mg Route: PO; bb 20:42 Follow up: Response: No adverse reaction ea 19:36 Drug: Zofran (Ondansetron) 4 mg Route: PO; bb 20:42 Follow up: Response: No adverse reaction ea 20:35 Drug: morphine 4 mg Route: IM; Site: left gluteus; ea 20:42 Follow up: Response: No adverse reaction ea Disposition: 03/06/21 20:19 Discharged to Home. Impression: Postconcussional syndrome, Muscle spasm of back. - Condition is Stable. - Discharge Instructions: Post-Concussion Syndrome, Muscle Cramps and Spasms, [id number]. - Prescriptions for Tylenol- Codeine #3 300-30 mg Oral Tablet - take 1 tablet by ORAL route every 4-6 hours As needed; 20 tablet. Zanaflex 4 mg Oral Tablet - take 1 tablet by ORAL route every 8 hours As needed; 20 tablet. - Medication Reconciliation Form, Thank You Letter, Antibiotic Education, Prescription Opioid Use form. - Follow up: Alis Jamison DO; When: 1 - 2 days; Reason: Recheck today's complaints, Continuance of care, Re-evaluation by your physician. Addendum: 03/07/2021 21:12 Co-signature as Attending Physician, Rob Galo MD I agree with the assessment and c jennings plan of care. Signatures: Dispatcher [employer] EDRob Hall MD MD cha Mickail, Joel, PA PA jmm Ballard, Brenda, RN RN Jonas Bonilla RN RN jl7 Kathleen Ross RN RN isaura Babak Valencia mw2 Desiree West RN RN kg Corrections: (The following items were deleted from the chart) 03/06 19:32 18:27 IV Saline Lock ordered. carri hebert 20:41 20:19 03/06/2021 20:19 Discharged to Home. Impression: Postconcussional syndrome; mw2 Muscle spasm of back. Condition is Stable. Forms are Medication Reconciliation Form, Thank You Letter, Antibiotic Education, Prescription Opioid Use. Follow up: Alis Jamison; When: 1 - 2 days; Reason: Recheck today's complaints, Continuance of care, Re-evaluation by your physician. carri
[2021-03-06 20:44] VITALS: BP 163/87; TEMP 98.6; O2SAT 98
[2021-03-06] MEDS ORDERED: MORPHINE 4 MG/ML SYR ONE (20:45)
== END 2021-03-06 20:41 | disposition home or self-care (01) ==
LOC: ER 15:31
DX: F07.81 Postconcussional syndrome (principal); M62.830 Muscle spasm of back; W19.XXXA Unspecified fall, initial encounter; E11.9 Type 2 diabetes mellitus without complications; I10 Essential (primary) hypertension
CPT/HCPCS: 72131; 70450; 72125; J2270; 96372; 99283; J2405; J3360

== ENCOUNTER 2021-03-08 15:17 | Emergency (ER) | payer OTHER ==
--- OUTSIDE RECORDS SUMMARY | 2021-03-08 15:21 | XMS REPORT | Continuity of Care Document ---
:1950 Author Organization [facility] t Address [address] [place] [address] Care Team Providers Name Role Phone Camila Osorio Attending Clinician JO Attending Clinician Unavailable Yoandy Parker Attending Clinician Chema Attending Clinician Yoandy Parker Admitting Clinician Problems Condition Condition Condition Status Onset Resolution Last Treating Co mments Source Name Details Category Date Date Treatment Clinician Date R51 - Diagnosis Active 2018-02-24 Mem oria HEADACHE 02-03 07:04:00 l R51 - 00:01: [place] HEADACHE 00 Active 02/03/2018 [facility] MILD Diagnosis Active 2016-03-23 Mem oria STEATOSIS 03-23 12:46:00 l MILD 12:44: [place] STEATOSIS 00 Active 03/23/2016 [facility] BDDC - F/U Diagnosis Active 2015-12-16 Memoria 12-07 15:27:00 l BDDC - 00:00: [place] F/U 00 Active 12/08/2015 [facility] R10.9 - Diagnosis Active 2015-12-11 Me moria UNSPECIFIE - 12:56:00 l D R10.9 - 00:01: [place] ABDOMINAL UNSPECIFIE 00 PAIN D ABDOMINAL PAIN Active 12/04/2015 [facility] [place] FOLLOW UP Diagnosis Active 2015-12-16 Memoria 11-27 15:18:00 l FOLLOW 00:00: [place] UP 00 Active 6 [facility] STOMACH Diagnosis Active 2015-11-24 Me moria PAIN - 13:16:00 l SELF STOMACH 00:00: [place] REFERRAL PAIN 00 SELF REFERRAL Active 11/14/2015 [facility] Hypertensi Problem Active 2018-02-11 M emoria ve 01:51:21 l disorder, [place] systemic Hypertensi arterial ve (disorder) disorder, systemic arterial (disorder) Active Problem 02/11/2018 [facility], HILARIA Anderson d, WILLD Marko MEDICAL Diagnosis Active 2015-12-16 Me moria SERVICES 15:18:00 l NOT MEDICAL [place] AVAILABLE SERVICES IN HOME NOT AVAILABLE IN HOME Active [facility] ALCOHOLIC Diagnosis Active 2015-12-16 Memoria FATTY 15:27:00 l LIVER [place] ALCOHOLIC FATTY LIVER Active [facility] 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-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 Jeannette nn DEFORMITIE SPECIFIED S CONGENITAL DEFORMITIE S Active [facility] FATTY Diagnosis Active 2016-03-23 Mem oria (CHANGE 12:46:00 l OF) LIVER, FATTY Jeannette nn NOT (CHANGE ELSEWHERE OF) LIVER, C NOT ELSEWHERE C Active [facility] New onset New onset Problem Active Uni [...] 2018-02-11 Me moria pain 01:51:21 l (finding) [place] Abdominal pain (finding) Active Problem 02/11/2018 [facility], OPID [facility] Anxiety Problem Active 2018-02-11 Keith cayla (finding) 01:51:21 l Anxiety [place] (finding) Active Problem 02/11/2018 [facility], OPID [place] d, OPID [place] Chronic Problem Active 2018-02-11 Keith cayla hepatitis 01:51:21 l C Chronic [place] (disorder) hepatitis C (disorder) Active Problem 02/11/2018 [facility], OPID [facility] d, OPID Marko Depressive Problem Active 2018-02-11 M emoria disorder 01:51:21 l (disorder) Ramiro n Depressive disorder (disorder) Active Problem 02/11/2018 [facility], OPIColton Friendswmaude d, OPIC[place]ton Hoffman Problem Active 2018-02-11 M daniella r calculus 01:51:21 l (disorder) Ramiro Masseybladde r calculus (disorder) Active Problem 02/11/2018 [facility], HILARIA miranda, HILARIA Zhu Allergies, Adverse Reactions, Alerts This patient has no known allergies or adverse reactions. Family History Family Member Diagnosis Comments Start Date Stop Date Source Father Family history of [facility] [place] lung cancer Physicians Social History Smoking Status Start Date Stop Date Source Social History [facility] Medications Ordered Filled Start Stop Current Ordering [...] microgram l Oral 18:20: = 1 cap, [place] Capsule 00 PO, BID, # [Amitiza] 60 tab, 0 Refill(s) linaclotide Yes 145 Memori a 0.145 MG 3-14 microgram l Oral 18:20: = 1 cap, [place] Capsule 00 PO, Daily, [Linzess] 30 minutes [...] Source BP Systolic 2018-02-01 131 mm[Hg] Location: [facility] 08:36:00 Position: [place] Physician s Sitting BP Diastolic 2018-02-01 78 mm[Hg] Location: [facility] 08:36:00 Position: [place] Physician s Sitting Height 2018-02-01 60 [in_us] [facility] 08:36:00 [place] Physician s Weight 2018-02-01 117 [lb_av] [facility] 08:36:00 [place] Physician s Body Mass Index 2018-02-01 22.85 kg/m2 [place] [facility] f Calculated 08:36:00 [place] Physician s Heart Rate 2018-02-01 73 /min Location: R [facility] 08:36:00 Brachial [place] Physician s Artery; Systolic (mm Hg) 2015-12-16 [facility] 20:34:00 Diastolic (mm Hg) 2015-12-16 [facility] 20:34:00 Weight 2015-12-16 Kasie Ramiro [...] Performed MRI Brain wo contrast 2018-02-08 00:00:00 [facility] [id number] Physicians MRI Brain w/wo contrast 2018-02-01 00:00:00 [facility] [id number] Physicians Biopsy of liver [facility] Cataract surgery [facility] Ramiro n Colonoscopy [facility] Endoscopy [facility] Hysterectomy [facility] MRI of abdomen [facility] MRI of kidneys [facility] Ultrasound [facility] History of Gallbladder [facility] surgery Physicians Encounters Start End Encounter Admission Attending Care Care Encounter Source Date/Time Date/Time Type Type Clinicians Facility Department ID 2018-02-08 2018-02-08 Outpatient Jo [id number] 13:20:00 23:59:00 Hollie Jensen [id number] 2018-02-01 2018-02-01 Appointmen BRENDAN OSORIO Neurology [id number] 08:00:00 08:00:00 t; HOLLIE OSORIO [facility] [place], M.D. [place] Miguel Angel Physici ans 2016-03-23 2016-03-23 Outpatient [facility] [id number] 12:44:00 23:59:00 Eddi Vigil 2016-03-23 2016-03-23 [facility] [id number] 11:35:00 23:59:00 Roseanna Vigil 2015-12-16 2015-12-16 Outpatient Tiana [facility] [id number] 15:20:00 23:59:00 Tahira Vigil 2015-12-11 2015-12-11 [facility] [id number] 13:01:00 23:59:00 Atilla 2015-12-02 2015-12-02 Outpatient Ertvan, [facility] [id number] 14:23:00 23:59:00 Atilla 2015-11-24 2015-11-24 Outpatient Ertvan, [facility] [id number] 13:06:00 23:59:00 Atilla 01 Results Test Description Test Time Test Comments Results Result Sourc e Comments MRI Brain wo 2018-01-12 Patient Name: RIYA Uni versity of contrast [id number] THI TRANDOB: [place] 16:25:00 1950. Age: 67 Physi cians years. Gender: Female.MR: [id number]. Location: [facility]. Provider: Hollie Osorio MD.EXAM: Brain wo contrast [...] abnormality. Mild chronic microangiopathic ischemic gliosis. SL: [id number]--Irtk by: Finesse Dias MDDictated Date/time: 02/08/18 17:31Electronically Signed by: Finesse Dias MD 02/08/1817:40FINAL REPORT MRI Brain w/wo contrast [id number] 2018-02-08 13:39:00 Test Item Value Reference Range Interpretation Comme nts Brain w/wo contrast MRI (test code = Brain w/wo Cancel Reason: Exam Replaced contrast MRI) [facility] Physicians
[2021-03-08 15:50] LABS: Urine Blood 1+ (Negative); Urine Glucose Negative (Negative); Urine Protein Negative (Negative); Urine Specific Gravity <=1.005 (1.005-1.030); Urine pH 5.5 (5.0-7.0)
[2021-03-08] MEDS ORDERED: ONDANSETRON 4 MG/2 ML VIAL ONE ×2 (16:30→18:44)
[2021-03-08] MEDS ORDERED: MORPHINE 2 MG/ML SYR ONE ×2 (16:30→16:47)
[2021-03-08 16:46] LABS: Protime INR 0.97
[2021-03-08 16:47] LABS: Absolute Lymphocytes (CBC) 1.9 K/uL (0.7-4.9); Basophils % 0.4 % (0-1.3); Hematocrit 34.6 % (36.0-45.0); Lymphocytes % 16.3 % (15.3-44.8); MPV 7.8 fL (7.6-11.3); RBC Red Blood Cell Count 3.86 M/uL (3.86-4.86)
[2021-03-08 16:57] LABS: ALT/SGPT 41 U/L (12-78); AST/SGOT 26 U/L (15-37); Albumin 3.6 g/dL (3.4-5.0); Alkaline Phosphatase 67 U/L (45-117); BUN Blood Urea Nitrogen 20 mg/dL (7-18); Bicarbonate 26 mmol/L (21-32); Bilirubin Direct < 0.1 mg/dL (0-0.2); Bilirubin Total 0.2 mg/dL (0.2-1.0); Glucose Level 115 mg/dL (74-106); Lipase 134 U/L (73-393); Magnesium 2.5 mg/dL (1.8-2.4); NT PRO-BNP 215 pg/mL (<125); Protein, Total 8.7 g/dL (6.4-8.2); Sodium Level 138 mmol/L (136-145); Troponin (Emerg Dept Use Only) < 0.02 ng/mL (0.0-0.045)
--- NOTE | 2021-03-08 17:10 | RAD REPORT ---
EXAM DESCRIPTION: CT - Angio Aorta For Dissection - 03/08/2021 4:42 pm CLINICAL HISTORY: . Chest and abdominal pain COMPARISON: CT abdomen 2019 CT chest 2012 TECHNIQUE: Computed tomography angiography of the chest, abdomen pelvis were obtained. 100 cc Isovue 370 was administered intravenously. Coronal and sagittal reconstruction were performed. MIP 3D reconstruction was performed All CT scans are performed using dose optimization technique as appropriate and may include automated exposure control or mA/KV adjustment according to patient size. FINDINGS: An aortic dissection is not seen. An aortic aneurysm is not displayed. The celiac, SMA and EARL are patent . A lung consolidation is not present. A pericardial effusion is not seen. A pleural effusion is not n oted. Chronic left lung opacities. Cholecystectomy. Mild dilatation of the common bile duct. Increased density is present within distal common bile duct. Mild fatty liver. Spleen, pancreas adrenals and kidneys demonstrate no significant abnormality. Cement has been placed into an old L1 vertebral fracture. There no evidence diverticulitis. No ascite s is noted. IMPRESSION: Negative for an aortic dissection. Mild dilatation of the common bile duct. Increased density within common bile duct may represent a st one or mass. MRCP recommended
--- NOTE | 2021-03-08 17:17 | RAD REPORT ---
EXAM DESCRIPTION: Jose Single View03/08/2021 4:16 pm CLINICAL HISTORY: Abdominal pain COMPARISON: 2019 FINDINGS: The lungs appear clear of acute infiltrate. The heart is normal size IMPRESSION: No acute abnormalities displayed
--- NOTE | 2021-03-08 18:18 | ER ---
Nurse's Notes [facility] Jose A Name: Alberto Botello Age: 70 yrs Sex: Female : 1950 Arrival Date: 03/08/2021 Time: 15:19 Bed 7 Private MD: Diagnosis: Abdominal tenderness-dilated CBD with debris; Type 2 diabetes mellitus;Unspecified kidney failure Presentation: 03/08 15:30 Chief complaint: Patient states: R sided abd pain and R sided back pain for 2 days. ll1 Slight dysuria with urinary frequency noted by patient. No known fever. Coronavirus screen: Client denies travel out of the [place] in the last 14 days. At this time, the client does not indicate any symptoms associated with coronavirus-19. Ebola Screen: Patient denies travel to an Ebola-affected area in the 21 days before illness onset. Initial Sepsis Screen: Does the patient meet any 2 criteria? No. Patient's initial sepsis screen is negative. Does the patient have a suspected source of infection? Yes: Acute abdominal pain. Risk Assessment: Do you want to hurt yourself or someone else? Patient reports no desire to harm self or others. Onset of symptoms was March 07, 2021. 15:30 Method Of Arrival: Wheelchair ll1 15:30 Acuity: ART 3 ll1 Historical: - Allergies: 15:33 No Known Allergies; ll1 - PMHx: 15:33 Hepatitis; Hypertension; Diabetes - NIDDM; Chronic pain; Anxiety; Osteoporosis; ll1 Pancreatitis; - Immunization history:: Client reports receiving the 2nd dose of the Covid vaccine, Flu vaccine is up to date. - Social history:: Smoking status: Patient denies any tobacco usage or history of. - Family history:: not pertinent. Screenin:00 Fall Risk Fall in past 12 months (25 points). No secondary diagnosis (0 pts). IV access kg (20 points). Ambulatory Aid- None/Bed Rest/Nurse Assist (0 pts). Gait- Weak (10 pts.). Mental Status- Oriented to own ability (0 pts). Total Huffman Fall Scale indicates Low Risk Score (25-44 pts). Fall prevention measures have been instituted. Side Rails Up X 2 Placed close to Nursing Station Frequent Obs/Assesments occuring Family Present and informed to notify staff if they need to leave bedside As available Patient and Family Educated on Fall Prevention Program and strategies. 18:55 Abuse screen: Denies threats or abuse. Denies injuries from another. Nutritional kg screening: No deficits noted. Tuberculosis screening: No symptoms or risk factors identified. Assessment: 17:35 General: Appears uncomfortable, Behavior is cooperative, appropriate for age, restless. kg Pain: Complains of pain in right lower quadrant and right upper quadrant and right low back and right mid back. 18:59 Neuro: No deficits noted. Neuro: No deficits noted. Cardiovascular: No deficits noted. kg Cardiovascular: Heart tones S1 S2. Respiratory: No deficits noted. Respiratory: No deficits noted. GI: Abdomen is round distended, Bowel sounds present X 4 quads. Abd is soft X 4 quads Abdomen is tender to palpation in right upper quadrant and right lower quadrant. : Reports urinary frequency. EENT: No deficits noted. Derm: No deficits noted. Vital Signs: 15:30 BP 149 / 105; Pulse 81; Resp 18; Temp 98.5; Pulse Ox 95% on R/A; Weight 63.5 kg; Height ll1 5 ft. 0 in. (152.40 cm); Pain 10/10; 15:45 BP 174 / 75; Pulse 83; Resp 20; Pulse Ox 94% ; kg 16:15 BP 154 / 69; Pulse 81; Resp 18; Pulse Ox 93% on R/A; kg 16:45 BP 154 / 41; Pulse 85; Resp 17; Pulse Ox 93% on R/A; kg 17:15 BP 158 / 61; Pulse 79; Resp 20; Pulse Ox 93% on R/A; kg 17:45 BP 170 / 85; Pulse 84; Resp 20; Pulse Ox 95% on R/A; kg 18:14 BP 163 / 82; Pulse 84; Resp 20; Pulse Ox 93% ; kg 18:45 BP 170 / 78; Pulse 86; Resp 20; Pulse Ox 93% on R/A; kg 19:15 BP 140 / 58; Pulse 84; Resp 16; Pulse Ox 91% on R/A; jm8 20:24 BP 159 / 77; Pulse 83; Resp 16; Pulse Ox 96% on 3 lpm NC; jm8 22:09 BP 149 / 72; Pulse 84; Resp 16; Pulse Ox 96% on 3 lpm NC; jm8 15:30 Body Mass Index 27.34 (63.50 kg, 152.40 cm) ll1 ED Course: 15:19 Patient arrived in ED. as 15:27 Rob Galo MD is Attending Physician. sarah 15:30 Arm band placed on Patient placed in an exam room, on a stretcher. ll1 15:32 Triage completed. ll1 16:16 XRAY Chest (1 view) In Process Unspecified. EDMS 16:27 Inserted saline lock: 18 gauge in right ,using aseptic technique. 18G EJ placed by Dr. suzan Galo using aseptic technique. Pt tolerated well. Blood collected. 16:35 Desiree West, RN is Primary Nurse. kg 16:38 Magnesium Sent. kg 16:38 LFT's Sent. kg 16:38 CBC with Diff Sent. kg 16:38 Basic Metabolic Panel Sent. kg 16:42 CT Aorta for Dissection In Process Unspecified. EDMS 16:45 Inserted saline lock: 22 gauge in left antecubital area, using aseptic technique. kg 18:[address] Galo with Veronica Gardner Rn for patient transfer eb consultation. 18:44 connected the GI doctor director operations broadcast for [facility] with Dr. Galo for patient eb transfer consultation. 18:[address] Burnett the hospitalist director operations broadcast for [facility] with Dr. Galo for eb patient transfer consultation. 18:59 Patient has correct armband on for positive identification. Fall risk band placed. kg Placed in gown. Bed in low position. Call light in reach. Side rails up X2. 19:06 administrative approval given by Veronica Gardner/ patient has been accepted to [address] bed 1631/ Dr. Burnett accepted the patient in transfer/ report to be called to [phone]. 19:36 Primary Nurse role handed off by Desiree West, YOSVANY [facility] 19:54 Report given to Tania BAR [facility]. 8 22:12 No provider procedures requiring assistance completed. Patient transferred, IV remains jm8 in place. Administered Medications: 16:30 Drug: morphine 2 mg Route: IVP; Site: right jugular; kg 16:30 Drug: Zofran (Ondansetron) 4 mg Route: IVP; Site: right jugular; kg 22:11 Follow up: Response: No adverse reaction jm8 16:36 Drug: morphine 2 mg Route: IVP; Site: left antecubital; kg 22:11 Follow up: Response: No adverse reaction 8 16:38 Drug: NS 0.9% 1000 ml Route: IV; Rate: 125 ml/hr; Site: left antecubital; kg 22:11 Follow up: IV Status: Infusion continued upon transfer jm8 18:19 Not Given (Physician canceled): Rocephin (cefTRIAXone) 1 grams IV at per protocol once; kg Given slow IV push per pharmacy instructions 18:31 Drug: Zosyn (piperacillin-tazobactam) 3.375 grams Route: IVPB; Infused Over: 60 mins; kg Site: left antecubital; 22:12 Follow up: Response: No adverse reaction; IV Status: Completed infusion 8 18:31 Drug: Dilaudid (HYDROmorphone) 0.5 mg Route: IVP; Site: left antecubital; kg 22:11 Follow up: Response: No adverse reaction [facility] 18:32 Drug: Zofran (Ondansetron) 4 mg Route: IVP; Site: left antecubital; kg 22:10 Follow up: Response: No adverse reaction jm8 19:15 Drug: Dilaudid (HYDROmorphone) 0.5 mg {Note: Ej right rass 0.} Route: IVP; Site: Other; rr5 22:11 Follow up: Response: No adverse reaction 8 Outcome: 18:18 ER care complete, transfer ordered by MD. smith 22:12 Transferred by ground EMS to [facility]. [facility] 22:12 Transferred Transfer form completed. X-rays sent w/ patient. 22:12 Condition: good 22:12 Instructed on the need for transfer. 22:13 Patient left the ED. jm8 Signatures: Dispatcher [employer] EDMS Rob Galo MD MD cha Martinez, Amelia as [place], MyKena mw2 Veronica Chappell Raymond, RN RN rr5 Bonita Go RN RN ll1 Desean Raya RN RN jm8 Desiree West RN RN kg
--- NOTE | 2021-03-08 18:18 | EDPHYS ---
Physician Documentation [facility] Name: Alberto Botello Age: 70 yrs Sex: Female : 1950 Arrival Date: 03/08/2021 Time: 15:19 Bed 7 Private MD: LEOLA Physician Rob Galo HPI: 03/08 16:09 This 70 yrs old Female presents to ER via Wheelchair with complaints of Abdominal sarah Pain, Back Pain. 16:09 The symptoms are located in the right mid back and right low back. sarah 16:09 The patient presents with abdominal pain in the right upper quadrant, right lower sarah quadrant, abdominal distention in the upper abdomen, in the lower abdomen. Onset: The symptoms/episode began/occurred 1 day(s) ago. The patient presents with pain that is acute. Onset: The symptoms/episode began/occurred 1 day(s) ago. The pain does not radiate. Associated signs and symptoms: The patient has no apparent associated signs or symptoms. Modifying factors: The patient symptoms are alleviated by nothing, the patient symptoms are aggravated by nothing. Severity of symptoms: At their worst the symptoms were moderate, in the emergency department the symptoms are unchanged. Historical: - Allergies: 15:33 No Known Allergies; ll1 - PMHx: 15:33 Hepatitis; Hypertension; Diabetes - NIDDM; Chronic pain; Anxiety; Osteoporosis; ll1 Pancreatitis; - Immunization history:: Client reports receiving the 2nd dose of the Covid vaccine, Flu vaccine is up to date. - Social history:: Smoking status: Patient denies any tobacco usage or history of. - Family history:: not pertinent. ROS: 16:09 Constitutional: Negative for fever, chills, and weight loss, Eyes: Negative for injury, sarah pain, redness, and discharge, ENT: Negative for injury, pain, and discharge, Neck: Negative for injury, pain, and swelling, Cardiovascular: Negative for chest pain, palpitations, and edema, Respiratory: Negative for shortness of breath, cough, wheezing, and pleuritic chest pain, Back: Negative for injury and pain, : Negative for injury, bleeding, discharge, and swelling, MS/Extremity: Negative for injury and deformity, Skin: Negative for injury, rash, and discoloration, Neuro: Negative for headache, weakness, numbness, tingling, and seizure, Psych: Negative for depression, anxiety, suicide ideation, homicidal ideation, and hallucinations, Allergy/Immunology: Negative for hives, rash, and allergies, Endocrine: Negative for neck swelling, polydipsia, polyuria, polyphagia, and marked weight changes, Hematologic/Lymphatic: Negative for swollen nodes, abnormal bleeding, and unusual bruising. 16:09 Abdomen/GI: Positive for abdominal pain, of the posterior aspect of right lateral abdomen, anterior aspect of right lateral abdomen, right upper quadrant and right lower quadrant. Exam: 16:09 Constitutional: This is a well developed, well nourished patient who is awake, alert, sarah and in no acute distress. Head/Face: Normocephalic, atraumatic. Eyes: Pupils equal round and reactive to light, extra-ocular motions intact. Lids and lashes normal. Conjunctiva and sclera are non-icteric and not injected. Cornea within normal limits. Periorbital areas with no swelling, redness, or edema. ENT: Nares patent. No nasal discharge, no septal abnormalities noted. Tympanic membranes are normal and external auditory canals are clear. Oropharynx with no redness, swelling, or masses, exudates, or evidence of obstruction, uvula midline. Mucous membranes moist. Neck: Trachea midline, no thyromegaly or masses palpated, and no cervical lymphadenopathy. Supple, full range of motion without nuchal rigidity, or vertebral point tenderness. No Meningismus. Chest/axilla: Normal chest wall appearance and motion. Nontender with no deformity. No lesions are appreciated. Cardiovascular: Regular rate and rhythm with a normal S1 and S2. No gallops, murmurs, or rubs. Normal PMI, no JVD. No pulse deficits. Respiratory: Lungs have equal breath sounds bilaterally, clear to auscultation and percussion. No rales, rhonchi or wheezes noted. No increased work of breathing, no retractions or nasal flaring. Female : Normal external genitalia. Skin: Warm, dry with normal turgor. Normal color with no rashes, no lesions, and no evidence of cellulitis. MS/ Extremity: Pulses equal, no cyanosis. Neurovascular intact. Full, normal range of motion. Neuro: Awake and alert, GCS 15, oriented to person, place, time, and situation. Cranial nerves II-XII grossly intact. Motor strength 5/5 in all extremities. Sensory grossly intact. Cerebellar exam normal. Normal gait. Psych: Awake, alert, with orientation to person, place and time. Behavior, mood, and affect are within normal limits. 16:09 Abdomen/GI: Inspection: distension, Bowel sounds: normal, Palpation: mild abdominal tenderness, in the posterior aspect of right lateral abdomen, anterior aspect of right lateral abdomen, right upper quadrant and right lower quadrant. 16:09 Back: pain, that is mild, of the right mid back and right low back, ROM is painful, normal spinal alignment noted, CVA tenderness, is absent, vertebral tenderness, is not appreciated, muscle spasm, is not present. 17:06 ECG was reviewed by the Attending Physician. [facility] Vital Signs: 15:30 BP 149 / 105; Pulse 81; Resp 18; Temp 98.5; Pulse Ox 95% on R/A; Weight 63.5 kg; Height ll1 5 ft. 0 in. (152.40 cm); Pain 10/10; 15:45 BP 174 / 75; Pulse 83; Resp 20; Pulse Ox 94% ; kg 16:15 BP 154 / 69; Pulse 81; Resp 18; Pulse Ox 93% on R/A; kg 16:45 BP 154 / 41; Pulse 85; Resp 17; Pulse Ox 93% on R/A; kg 17:15 BP 158 / 61; Pulse 79; Resp 20; Pulse Ox 93% on R/A; kg 17:45 BP 170 / 85; Pulse 84; Resp 20; Pulse Ox 95% on R/A; kg 18:14 BP 163 / 82; Pulse 84; Resp 20; Pulse Ox 93% ; kg 18:45 BP 170 / 78; Pulse 86; Resp 20; Pulse Ox 93% on R/A; kg 19:15 BP 140 / 58; Pulse 84; Resp 16; Pulse Ox 91% on R/A; jm8 20:24 BP 159 / 77; Pulse 83; Resp 16; Pulse Ox 96% on 3 lpm NC; jm8 22:09 BP 149 / 72; Pulse 84; Resp 16; Pulse Ox 96% on 3 lpm NC; jm8 15:30 Body Mass Index 27.34 (63.50 kg, 152.40 cm) ll1 Procedures: 16:20 Peripheral line: by aseptic technique a peripheral line was placed in the right [facility] external jugular vein. MDM: 15:27 Patient medically screened. [facility] 16:12 Differential diagnosis: Abdominal Aortic Aneurysm Cholelithiasis chronic back pain, sarah Obesity Peptic Ulcer Pyelonephritis Renal Infarction ruptured disc, Ureterolithiasis appendicitis, bowel obstruction, gastritis, Mesenteric ischemia or infarction, non-specific abd pain, pancreatitis, Pyelonephritis, urinary tract infection. Data reviewed: vital signs, nurses notes, lab test result(s), EKG, radiologic studies, CT scan, plain films. Data interpreted: hospital monitor: rate is 81 beats/min, rhythm is regular, Pulse oximetry: on room air is 95 %. Test interpretation: by ED physician or midlevel provider: ECG, plain radiologic studies. Counseling: I had a detailed discussion with the patient and/or guardian regarding: the historical points, exam findings, and any diagnostic results supporting the discharge/admit diagnosis, lab results, radiology results. 03/08 15:42 Order name: Basic Metabolic Panel [facility] 03/08 15:42 Order name: CBC with Diff [facility] 03/08 15:42 Order name: LFT's [facility] 03/08 15:42 Order name: Magnesium [facility] 03/08 15:42 Order name: NT PRO-BNP; Complete Time: 17:03 [facility] 03/08 15:42 Order name: PT-INR; Complete Time: 17:03 [facility] 03/08 15:42 Order name: Troponin (emerg Dept Use Only); Complete Time: 17:03 [facility] 03/08 15:42 Order name: Lipase; Complete Time: 17:03 [facility] 03/08 15:42 Order name: Urine Culture [facility] 03/08 15:43 Order name: Basic Metabolic Panel; Complete Time: 17:03 [facility] 03/08 15:43 Order name: CBC with Automated Diff; Complete Time: 17:03 [facility] 03/08 15:43 Order name: Liver (Hepatic) Function; Complete Time: 17:03 [facility] 03/08 15:43 Order name: Magnesium; Complete Time: 17:03 [facility] 03/08 15:42 Order name: XRAY Chest (1 view); Complete Time: 18:08 [facility] 03/08 15:42 Order name: EKG; Complete Time: 15:43 [facility] 03/08 15:42 Order name: Cardiac monitoring; Complete Time: 16:37 [facility] 03/08 15:42 Order name: EKG - Nurse/Tech; Complete Time: 17:01 [facility] 03/08 15:42 Order name: IV Saline Lock; Complete Time: 16:37 [facility] 03/08 15:42 Order name: CT Aorta for Dissection; Complete Time: 18:08 [facility] 03/08 15:50 Order name: Urine Dipstick-Ancillary; Complete Time: 17:03 [facility] 03/08 18:09 Order name: SARS-COV-2 RT PCR; Complete Time: 18:09 [facility] 03/08 15:42 Order name: Labs collected and sent; Complete Time: 16:37 [facility] 03/08 15:42 Order name: O2 Per Protocol; Complete Time: 16:37 [facility] 03/08 15:42 Order name: O2 Sat Monitoring; Complete Time: 16:37 [facility] 03/08 15:42 Order name: Urine Dipstick-Ancillary (obtain specimen); Complete Time: 17:00 [facility] EC:06 Rate is 87 beats/min. Rhythm is regular. QRS [place] is Normal. [place] interval is normal. QRS sarah interval is normal. QT interval is normal. No Q waves. T waves are Normal. T waves are Inverted in leads V1, V2, V3, V4, V5. No ST changes noted. Clinical impression: NSR w/ Non-specific ST/T Changes and No evidence of ischemia. Interpreted by me. Reviewed by me. Administered Medications: 16:30 Drug: morphine 2 mg Route: IVP; Site: right jugular; kg 16:30 Drug: Zofran (Ondansetron) 4 mg Route: IVP; Site: right jugular; kg 22:11 Follow up: Response: No adverse reaction [facility] 16:36 Drug: morphine 2 mg Route: IVP; Site: left antecubital; kg 22:11 Follow up: Response: No adverse reaction [facility] 16:38 Drug: NS 0.9% 1000 ml Route: IV; Rate: 125 ml/hr; Site: left antecubital; kg 22:11 Follow up: IV Status: Infusion continued upon transfer [facility] 18:19 Not Given (Physician canceled): Rocephin (cefTRIAXone) 1 grams IV at per protocol once; kg Given slow IV push per pharmacy instructions 18:31 Drug: Zosyn (piperacillin-tazobactam) 3.375 grams Route: IVPB; Infused Over: 60 mins; kg Site: left antecubital; 22:12 Follow up: Response: No adverse reaction; IV Status: Completed infusion jm8 18:31 Drug: Dilaudid (HYDROmorphone) 0.5 mg Route: IVP; Site: left antecubital; kg 22:11 Follow up: Response: No adverse reaction jm8 18:32 Drug: Zofran (Ondansetron) 4 mg Route: IVP; Site: left antecubital; kg 22:10 Follow up: Response: No adverse reaction jm8 19:15 Drug: Dilaudid (HYDROmorphone) 0.5 mg {Note: Ej right rass 0.} Route: IVP; Site: Other; rr5 22:11 Follow up: Response: No adverse reaction jm8 Disposition: 03/08/21 18:[address] [facility]. Diagnosis are Abdominal tenderness - dilated CBD with debris, Type 2 diabetes mellitus, Unspecified kidney failure. - Reason for transfer: Higher level of care. - Accepting physician is to [facility]. - Condition is Fair. - Problem is new. - Symptoms have improved. Signatures: Dispatcher [employer] [facility] Rob Galo MD MD cha Roque, Raymond, RN RN rr5 Bonita Go RN RN ll1 Desean Raya RN RN jm8 Desiree West, YOSVANY RN kg Corrections: (The following items were deleted from the chart) 16:58 15:43 CORONAVIRUS+ ordered. [facility] 18:26 18:18 03/08/2021 18:[address] [facility]. [facility] Diagnosis is Abdominal tenderness - dilated CBD with debris. Reason for transfer: Higher level of care. Accepting physician is to [facility]. Condition is Fair. Problem is new. Symptoms have improved. [facility] 22:13 18:26 03/08/2021 18:[address] [facility]. 8 Diagnosis is Abdominal tenderness - dilated CBD with debris; Type 2 diabetes mellitus; Unspecified kidney failure. Reason for transfer: Higher level of care. Accepting physician is to [facility]. Condition is Fair. Problem is new. Symptoms have improved. sarah
[2021-03-08] MEDS ORDERED: HYDROMORPHONE HCL 0.5 MG/0.5 ML INJ ONE ×2 (18:43→19:34)
[2021-03-08] MEDS ORDERED: CEFTRIAXONE 1000 MG/VIAL ONE (18:44)
[2021-03-08] MEDS ORDERED: NA CHLORIDE 0.9% 1,000 ML ONE (18:51)
[2021-03-08 22:27] VITALS: TEMP 98.5
[2021-03-08 22:50] VITALS: O2SAT 96
[2021-03-08 22:52] VITALS: BP 149/72
--- NOTE | 2021-03-09 15:50 | EKG ---
Test Date: 2021-03-08 Test Time: 16:53:16 Reactor Technician: DANIEL MEASUREMENT RESULTS: Intervals: Rate: 84 MI: 158 QRSD: 90 QT: 390 QTc: 460 [place]: P: 70 MI: 158 QRS: 57 T: 59 INTERPRETIVE STATEMENTS: Normal sinus rhythm RSR' or QR pattern in V1 suggests right ventricular conduction delay ST & T wave abnormality, consider anterior ischemia Abnormal ECG Compared to ECG 03/08/2021 16:51:03 RSR' in V1 or V2 now present Incomplete right bundle-branch block no longer present Myocardial infarct finding no longer present ST (T wave) deviation still present Possible ischemia still present Electronically Signed On 03-09-21 15:47:13 CDT by Darrin Saldaña
--- NOTE | 2021-03-09 15:50 | EKG ---
Test Date: 2021-03-08 Test Time: 16:51:03 Decal Maker: DANIEL MEASUREMENT RESULTS: Intervals: Rate: 87 FL: 158 QRSD: 94 QT: 390 QTc: 469 [place]: P: 59 FL: 158 QRS: 56 T: 63 INTERPRETIVE STATEMENTS: Normal sinus rhythm Incomplete right bundle branch block Septal infarct, age undetermined ST & T wave abnormality, consider anterior ischemia Abnormal ECG Compared to ECG 09/17/2019 15:34:25 Incomplete right bundle-branch block now present Myocardial infarct finding now present ST (T wave) deviation now present Possible ischemia now present T-wave abnormality no longer present Electronically Signed On 03-09-21 15:47:14 CDT by Darrin Saldaña
== END 2021-03-08 22:13 | disposition short-term general hospital (02) ==
LOC: ER 15:17
PROC: 05HP33Z Insertion of Infusion Device into Right External Jugular Vein, Percutaneous Approach (ICD-10-PCS; principal; 2021-03-08)
DX: K83.8 Other specified diseases of biliary tract (principal); N19 Unspecified kidney failure; E11.9 Type 2 diabetes mellitus without complications; I10 Essential (primary) hypertension; Z20.822 Contact with and (suspected) exposure to COVID-19
CPT/HCPCS: 93005 ×2; 87088; 85025; 87086; 80048; 36415; 83735; 85610; 82565; 80076; 81003; 84484; 83690; 83880; 71275; 74175; 71045; 99285; 36569; U0003; Q9967; J2270 ×2; J1170 ×2; J7030; J2405 ×2

== ENCOUNTER 2021-04-03 13:01 | Emergency (ER) | payer OTHER ==
--- OUTSIDE RECORDS SUMMARY | 2021-04-03 13:05 | XMS REPORT | Continuity of Care Document ---
:1950 [facility] t Address [address] [place] [address] Dr. Briseno. [address] [place] [address] Care Team Providers Name Role Phone Ervin Jamison Primary Care Physician Ezequiel DUMONT, Galina Attending Clinician Unavailable Maribel Burnett MD Attending Clinician Tyler Schuster MD Attending Clinician Ammy Boone MD Attending Clinician Kathy MAY, Kathy Rm Attending Clinician Eldon Bahena MD Attending Clinician Maribel BURNETT Attending Clinician Unavailable Camila Osorio Attending Clinician JO Attending Clinician Unavailable Yoandy Parker Attending Clinician Chema Attending Clinician TYLER SCHUSTER Admitting Clinician Unavailable Yoandy Parker Admitting Clinician Payers Payer Name Policy Type Policy Effective Date Expiration Date Sour ce Number MEDICAREMEDICARE A [id number] 2021 EDWARD Tian [id number] 00:00:00 - [facility] MEDICAIDMEDICAID OF [id number] 2021 EDWARD Tian ZEGSWtcrug77640/09/2020 00:00:00 - [facility] Problems Condition Condition Condition Status Onset Resolution Last Treating Co mments Source Name Details Category Date Date Treatment Clinician Date Abdominal Abdominal Disease Active [facility] R51 - Diagnosis Active 2018-02-24 Mem oria HEADACHE 02-03 07:04:00 l R51 - 00:01: [place] HEADACHE 00 Active 02/03/2018 [facility] MILD Diagnosis Active 2016-03-23 Mem oria STEATOSIS - 12:46:00 l MILD 12:44: Sherif STEATOSIS 00 Active 03/23/2016 [facility] BDDC - F/U Diagnosis Active 2015-12-16 Memoria 3-28 15:27:00 l BDDC - 00:00: Sherif F/U 00 Active 12/08/2015 [facility] R10.9 - Diagnosis Active 2015-12-11 Me moria UNSPECIFIE 3-24 12:56:00 l D R10.9 - 00:01: [place] ABDOMINAL UNSPECIFIE 00 PAIN D ABDOMINAL PAIN Active 12/04/2015 [facility] [place] FOLLOW UP Diagnosis Active 2015-12-16 Memoria 3-18 15:18:00 l FOLLOW 00:00: [place] UP 00 Active 6 [facility] STOMACH Diagnosis Active 2015-11-24 Me moria PAIN 3-04 13:16:00 l SELF STOMACH 00:00: [place] REFERRAL PAIN 00 SELF REFERRAL Active 11/14/2015 [facility] Anxiety Problem Active 2018-02-11 Keith cayla (finding) 01:51:21 l Anxiety Sherif (finding) Active Problem 02/11/2018 [facility], [facility], [facility] [place] Chronic Problem Active 2018-02-11 Keith cayla hepatitis 01:51:21 l C Chronic Sherif (disorder) hepatitis C (disorder) Active Problem 02/11/2018 [facility], OP[facility], [facility] [place] Depressive Problem Active 2018-02-11 M emoria disorder 01:51:21 l (disorder) Ramiro n Depressive disorder (disorder) Active Problem 02/11/2018 [facility], OPID Friendswmaude miranda, OPID Marko Gallbladde Problem Active 2018-02-11 M emoria r calculus 01:51:21 l (disorder) Ramiro n Nikkye r calculus (disorder) Active Problem 02/11/2018 [facility], OPID Friendskarley d, OP[facility] [place] MEDICAL Diagnosis Active 2015-12-16 Me moria SERVICES 15:18:00 l NOT MEDICAL [place] AVAILABLE SERVICES IN HOME NOT AVAILABLE IN HOME Active [facility] ALCOHOLIC Diagnosis Active 2015-12-16 Memoria FATTY 15:27:00 l LIVER Sherif ALCOHOLIC FATTY LIVER Active [facility] 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-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 Jeannette nn 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 Family History Family Member Diagnosis Comments Start Date Stop Date Source Father Family history of [facility] [place] lung cancer Physicians Social History Social Habit Start Date Stop Date Quantity Comments Source Sex Assigned At [facility] Tobacco use and 2021-03-10 2021-03-10 Never used [facility] - exposure 00:00:00 00:00:00 [facility] Alcohol intake 2021-03-10 2021-03-10 Ex-drinker [facility] es - 00:00:00 00:00:00 (finding) [facility] Smoking Status Start Date Stop Date Source Never sm[facility] Medications Ordered Filled Start Stop Current Ordering Indication Dosage Frequency Signature Comments Components Source Medication Medication Date Date Medication? Clinician (SIG) Name Name ALPRAZolam Yes 2mg Take [address] (XANAX) 2 6-30 by mouth [facility] - MG tablet 11:35: every Medical 13 night as Center needed for Sleep. pantoprazol Yes 40mg QD Take [address] e 6-30 by mouth [facility]ukes - (PROTONIX) 11:35: daily. Medic al 40 MG 13 Center tablet citalopram Yes 20mg QD Take [address] (CeleXA) 20 6-30 by mouth Luke s - MG tablet 11:35: daily. Medica l 13 Center risperiDONE Yes .5mg QD Take 0.[address] (RisperDAL) 6-30 mg by [facility] - 0.5 MG 11:35: mouth Medical tablet 13 nightly. Center traMADoL Yes 50mg Take [address] (ULTRAM) 50 6-30 by mouth Luke s - mg tablet 11:35: every 8 Medic al 13 (eight) Center hours as needed for Pain. famotidine Yes 20mg Q.5D Take [address] (PEPCID) 20 6-30 by mouth 2 Jasmyn kes - MG tablet 11:35: (two) Medical 13 times Center daily. omega-3 Yes 2g Q.5D Take [address] fatty 6-30 by mouth 2 [facility]ukes - acids-fish 11:35: (two) Medica l oil 13 times Center 340-1,000 daily. mg Cap per capsule cholecalcif Yes 5000U QD Take 5,[address] slim 6-30 Units by [facility]ukes - (VITAMIN 11:35: mouth Medical D3) 25 mcg 13 daily. Center (1,000 unit) tablet lisinopriL Yes 10mg QD Take [address] (PRINIVIL,Z 6-30 by mouth Luke s - ESTRIL) 10 11:35: daily. Medic al MG tablet 13 Center linaCLOtide Yes 145ug Take [address] (Linzess) 6-30 mcg by [facility] - 145 mcg Cap 11:35: mouth Medic al 13 every Center morning before breakfast. lubiproston Yes 24ug QD Take [address] (AMITIZA) 6-30 mcg by [facility]ukes - 24 MCG 11:35: mouth Medical capsule 13 daily. [facility] alendronate Yes 70mg Take [address] (FOSAMAX) 6-30 by mouth [facility] - 70 MG 11:35: every 7 Medical tablet 13 days Take Center in the morning with a full glass of water, on an empty stomach, and do not take anything else by mouth or lie down for the next 30 min. . meclizine Yes [facility] (ANTIVERT) 6-21 [facility] - 25 mg 00:00: Medical tablet 00 [facility] Nortriptyli Nortriptyli Yes HOLLIE TAKE 1 Univers ne HCl - 25 ne HCl - 25 5-30 JO M.D. CAPSULE AT ity of MG Oral MG Oral 00:00: BEDTIME. Arnie as Capsule Capsule 00 Physici ans Hemocyte Hemocyte Yes R.N. Unive rs Plus 106-1 Plus 106-1 5-23 ity of MG Oral MG Oral 00:00: [place] Capsule Capsule 00 Physici ans Lisinopril Lisinopril Yes R.N. Q0.5D TAKE 1 Univers 10 MG Oral 10 MG Oral 5-23 TABLET i ty of Tablet Tablet 00:00: TWICE [place] 00 DAILY. Physici ans MetFORMIN MetFORMIN Yes [...] AT ity of Tablet Tablet 00:00: BEDTIME. [place] 00 Physici ans Omeprazole Omeprazole Yes R.N. 1 QD TAKE 1 Univers 40 MG Oral 40 MG Oral 5-23 CAPSULE ity of Capsule Capsule 00:00: DAILY [place] Delayed Delayed 00 Physici Release Release ans Morphine Morphine 2018-0 Yes R.N. 1.5 Q0.5D TAKE 1.5 Univers Sulfate 30 Sulfate 30 - TABLET i ty of MG Oral MG Oral 00:00: TWICE [place] Tablet Tablet 00 DAILY Physici ans MethylPREDN MethylPREDN Yes HOLLIE [place]ap[place]eusebio Univers ISolone 4 ISolone 4 5-23 JO Michelle dose lior ity of MG Oral MG Oral 00:00: (24 mg [place] Tablet Tablet 00 with Physici Therapy Therapy tapering ans Pack Pack dose to 4 mg over 6 days) MDD:24mg linaclotide Yes 145 Memori a 0.145 MG 4-05 microgram l Oral 20:42: = 1 cap, [place] Capsule 00 PO, Daily, [Linzess] 30 minutes [...] microgram l Oral 18:20: = 1 cap, [place] Capsule 00 PO, BID, # [Amitiza] 60 tab, 0 Refill(s) linaclotide Yes 145 Memori a 0.145 MG 3-14 microgram l Oral 18:20: = 1 cap, [place] Capsule 00 PO, Daily, [Linzess] 30 minutes [...] tab, PO, l tablet 18:20: Daily, # [place] 00 30 tab, 0 Refill(s) Metoclopram Yes 5 mg = 1 Me moria kun 5 MG 3-14 tab, PO, l Oral Tablet 18:20: BID, 0 Herm vilma 00 Refill(s) Alprazolam Yes 2 mg = 1 Mem oria 2 MG Oral 3-14 tab, PO, l Tablet 18:20: Daily, PRN Jeannette nn 00 Anxiety, 0 Refill(s) dexlansopra Yes 60 mg = 1 M emoria zole 60 MG 3-14 cap, PO, l Enteric 18:20: Daily, # Ramiro n Coated 00 30 day, 0 Capsule Refill(s) [Dexilant] morphine 30 Yes 30 mg = 1 M emoria mg oral 3-14 tab, PO, l tablet 18:20: Q4H, PRN [place] 00 Pain, 0 Refill(s) Vital Signs Vital Name Observation Time Observation Value Comments Source Systolic blood 2021-03-11 189 mm[Hg[facility] - pressure 08:18:00 [facility] Diastolic blood 2021-03-11 81 mm[Hg] [facility] - pressure 08:18:00 [facility] Heart rate 2021-03-11 66 /min [facility] - 08:18:00 [facility] Body temperature 2021-03-[address] [facility] - 08:18:00 [facility] Respiratory rate 2021-03-11 18 /min [facility] - 08:18:00 [facility] Oxygen saturation 2021-03-11 94 /min [facility] - in Arterial blood 08:18:00 [facility] nter by Pulse oximetry Body weight 2021-03-[address] [facility] - 11:08:00 [facility] BP Systolic 2018-02-01 131 mm[Hg] Location: [facility] 08:36:00 Position: [place] Physician s Sitting BP Diastolic 2018-02-01 78 mm[Hg] Location: [facility] 08:36:00 Position: [place] Physician s Sitting Height 2018-02-01 60 [in_us] [facility] 08:36:00 [place] Physician s Weight 2018-02-01 117 [lb_av] [facility] 08:36:00 [place] Physician s Body Mass Index 2018-02-01 22.85 kg/m2 University o f Calculated 08:36:00 [place] [facility] Heart Rate 2018-02-01 73 /min Location: [facility] [place] [facility] 08:36:00 Brachial [place] [facility]ician s Artery; Systolic (mm Hg) 2015-12-16 [facility] 20:34:00 Diastolic (mm Hg) 2015-12-16 [facility] 20:34:00 Weight 2015-12-16 [facility] Ramiro n 20:34:00 Height 2015-12-16 152.4 cm [facility] Ramiro n 20:34:00 Respitory Rate 2015-12-16 [facility] 20:34:00 BMI Calculated 2015-12-16 [facility] 20:34:00 Weight 2015-12-02 [facility] Ramiro n 19:50:00 Height 2015-12-02 152.4 cm [facility] Ramiro n 19:50:00 Systolic (mm Hg) 2015-12-02 [facility] 19:50:00 Diastolic (mm Hg) 2015-12-02 [facility] 19:50:00 Respitory Rate 2015-12-02 [facility] 19:50:00 BMI Calculated 2015-12-02 [facility] 19:50:00 Systolic (mm Hg) 2015-11-24 [facility] rmann 18:19:00 Diastolic (mm Hg) 2015-11-24 [facility] 18:19:00 Height 2015-11-24 180.34 cm [facility] Ramiro n 18:19:00 Heart Rate 2015-11-24 [facility] Ramiro n 18:19:00 BMI Calculated 2015-11-24 [facility] 18:19:00 Weight 2015-11-24 [facility] Ramiro n 18:19:00 Procedures Procedure Date / Time Performing Clinician Source Performed POCT-GLUCOSE METER 2021-03-11 08:21:[address] [facility] COMPREHENSIVE METABOLIC 2021-03-11 06:09:[address] [facility] REPORT OF PROCEDURE - 2021-03-10 23:43:51 Allen Chavez [facility] - ENDOSCOPY [facility] POCT-GLUCOSE METER 2021-03-10 16:43:[address] [facility] POCT-GLUCOSE METER 2021-03-10 12:45:[address] 2021-03-10 12:02:00 Desiree Duggan [facility] ERCP,PAPILLOTOMY 2021-03-10 11:31:00 Santiagovan [facility] PROCEDURE W/ C-ARM 2021-03-10 11:31:00 [facility] ERCP,BALLOON SWEEPING 2021-03-10 11:31:00 Santiagovan [facility] POCT-GLUCOSE METER 2021-03-10 09:07:00 Paolo [facility] CBC (HEMOGRAM ONLY) 2021-03-10 04:50:00 [facility] COMPREHENSIVE METABOLIC 2021-03-10 04:50:00 [facility] HEMOGLOBIN A1C 2021-03-10 04:50:00 [facility] POCT-GLUCOSE METER 2021-03-09 23:54:00 [facility] ([facility] & 2021-03-09 20:13:00 Desiree Duggan [facility] - REF LABS) [facility] POCT-GLUCOSE METER 2021-03-09 17:22:00 [facility] MR ABDOMEN WO CONTRAST 2021-03-09 15:38:00 [facility] POCT-GLUCOSE METER 2021-03-09 12:22:00 [facility] URINALYSIS W/ REFLEX 2021-03-09 10:56:00 [facility] URINE CULTURE [facility] HEPATIC FUNCTION PANEL 2021-03-09 05:25:00 [facility] PROTHROMBIN TIME/INR 2021-03-09 05:25:00 [facility] MAGNESIUM 2021-03-09 05:25:00 [facility] BASIC METABOLIC PANEL 2021-03-09 05:25:00 [facility] (7) [facility] CBC W/PLT COUNT & AUTO 2021-03-09 05:25:00 [facility]ive S [facility] HEMOGLOBIN A1C 2021-03-09 05:25:00 [facility] MRI Brain wo contrast 2018-02-08 00:00:00 [facility] [id number] Physicians MRI Brain w/wo contrast 2018-02-01 00:00:00 [facility] [id number] Physicians Biopsy of liver [facility] Cataract surgery [facility] n Colonoscopy [facility] Endoscopy [facility] Hysterectomy [facility] MRI of abdomen [facility] MRI of kidneys [facility] Ultrasound [facility] History of Gallbladder [facility] surgery Physicians Plan of Care Planned Activity Planned Date Details Comments Source Future Scheduled 2021-09-09 Hemoglobin A1c [facility] kes - Test 00:00:00 [facility] (procedure) [code = 17361516] Future Scheduled 2021-05-13 INFLUENZA VACCINE (#1) [facility] - Test 00:00:00 [code = INFLUENZA Medical Ce nter VACCINE (#1)] Future Scheduled 2021-03-08 Medicare IPPE (WELCOME [facility] - Test 00:00:00 TO MEDICARE) [code = Medical Center Medicare IPPE (WELCOME TO MEDICARE)] Future Scheduled 2013 PNEUMOCOCCAL 65+ Y[facility] - Test 00:00:00 (1 of 1 - Medical Center [id number]) [code = PNEUMOCOCCAL 65+ YRS (1 of 1 - [id number] PCV13)] Future Scheduled 1998 SHINGLES VACCINES ([address] [facility] - Test 00:00:00 of 2) [code = SHINGLES Medic al Center VACCINES (1 of 2)] Future Scheduled 1967 DTAP/TDAP/TD VACCINES [facility] - Test 00:00:00 (1 - Tdap) [code = Medical C enter DTAP/TDAP/TD VACCINES (1 - Tdap)] Future Scheduled 1966 HEPATITIS C SCREENING [facility] - Test 00:00:00 [code = HEPATITIS C Medical Center SCREENING] Future Scheduled 1958 DIABETIC EYE EXAM [facility] - Test 00:00:00 [code = DIABETIC EYE Medical Center EXAM] Future Scheduled [address] [facility] - Test 00:00:00 examination Medical Center (regime/therapy) [code = 764909222] Future Scheduled 1958 Urine screening for [facility] - Test 00:00:00 protein (procedure) Medical Center [code = 640898644] Future Scheduled [address] [facility] - Test 00:00:00 [facility] breast (procedure) [code = 493701947] Future Scheduled [address] [facility] - Test 00:00:00 malignant neoplasm of [facility] colon (procedure) [code = 501929484] Encounters Start End Encounter Admission Attending Care Care Encounter Source Date/Time Date/Time Type Type Clinicians Facility Department ID 2018-02-08 2018-02-08 Outpatient Jo [id number] 13:20:00 23:59:00 Hollie Jensen [id number] 2018-02-01 2018-02-01 [facility] Neurology [id number] Univers 08:00:00 08:00:00 t; HOLLIE OSORIO ity of [place], M.D. [place] M.D. Physici ans 2016-03-23 2016-03-23 Outpatient [facility] [id number] 12:44:00 23:59:00 Eddi Vigil 2016-03-23 2016-03-23 Outpatient [facility] [id number] 11:35:00 23:59:00 Roseanna Vigil 2015-12-16 2015-12-16 Outpatient [facility] [id number] 15:20:00 23:59:00 Tahira Vigil 2015-12-11 2015-12-11 Outpatient Chema [facility] [id number] 13:01:00 23:59:00 At[place] 2015-12-02 2015-12-02 Outpatient Chema [facility] [id number] 14:23:00 23:59:00 At[place] 03 2015-11-24 2015-11-24 Outpatient Chema [facility] [id number] 13:06:00 23:59:00 [place] Results Test Description Test Time Test Comments Results Result Comments Source POC-Glucose meter 2021-03-11 08:41:00 Test Item Value Reference Range Interpretation Comme nts POC-Glucose Meter (test code = 104 mg/dL 70-110 : TESTED AT [facility] [address] [facility] 1538) [facility], 770 30: Regulatory Compliance Engineer/Techni aldo ID = [id number] for HUSSEIN LEMON Lab Interpretation (test code = Normal 05504-5) [facility] [id number] 08:41:00 Test Item Value Reference Range Interpretation Comments POC-GLUCOSE METER 104 mg/dL 70-110 : TESTED A T [facility] [address] (BEAKER) (test code = BERTNE R [facility], 1538) [address]: Regulatory Compliance Engineer/Techni aldo ID = [id number] for HUSSEIN DAVID Comprehensive metabolic [id number] 06:49:00 Test Item Value Reference Range Interpretation Comments Protein, Total (test 6.8 See_Comment [Autom ated code = 2885-2) message] The system which generated this result transmit leonidas reference range : 6.0 - 8.3 gm/dL . The reference range was not u sed to interpret th is result as normal/abnormal . Albumin (test code = 3.5 g/dL 3.5-5 29200-2) Alkaline Phosphatase 44 U/L 40-150 (test code = 6768-6) Total Bilirubin (test 0.3 mg/dL 0.2-1.2 code = 1975-2) Sodium (test code = 139 meq/L 649-328 0509-2) Potassium (test code 3.8 meq/L 3.5-5.1 = 2823-3) Chloride (test code = 104 meq/L 98-107 2075-0) CO2 (test code = 27 meq/L -29 8-9) BUN (test code = 12 mg/dL 7-21 3094-0) Creatinine (test code 1.05 mg/dL 0.57-1.25 = 2160-0) Glucose (test code = 79 mg/dL 70-105 2345-7) Calcium (test code = 8.4 mg/dL 8.4-10.2 17691-5) AST (test code = 49 U/L 5-34 H 1920-8) ALT (test code = 41 U/L 6-55 1742-6) EGFR (test code = 52 mL/min/1.73 [place] [address]-4) NOT ACCURATE CREATININE CLEARANCE IN PREDICTING GLOMERULAR FILTRATION RATE . ESTIMATED GFR I S NOT APPLICABLE FOR DIALYSIS PATIEN TS. MACDONALD (test code = TORRES) Regulatory Compliance Engineer ID - HUMBLE M Lab Interpretation Abnormal (test code = 47843-0) [facility] Hospital[facility]PRE[facility]ENSIVE METABOLIC [id number] 06:49:00 Test Item Value Reference Range Interpretation Comments TOTAL PROTEIN 6.8 gm/dL 6.0-8.3 (BEAKER) (test code = 770) ALBUMIN (BEAKER) 3.5 g/dL 3.5-5.0 (test code = 1145) ALKALINE PHOSPHATASE 44 U/L 40-150 (BEAKER) (test code = 346) BILIRUBIN TOTAL 0.3 mg/dL 0.2-1.2 (BEAKER) (test code = 377) SODIUM (BEAKER) (test 139 meq/L 136-145 code = 381) POTASSIUM (BEAKER) 3.8 meq/L 3.5-5.1 (test code = 379) CHLORIDE (BEAKER) 104 meq/L 98-107 (test code = 382) CO2 (BEAKER) (test 27 meq/L - code = 355) BLOOD UREA NITROGEN 12 mg/dL 7-21 (BEAKER) (test code = 354) CREATININE (BEAKER) 1.05 mg/dL 0.57-1.25 (test code = 358) GLUCOSE RANDOM 79 mg/dL 70-105 (BEAKER) (test code = 652) CALCIUM (BEAKER) 8.4 mg/dL 8.4-10.2 (test code = 697) AST (SGOT) (BEAKER) 49 U/L 5-34 H (test code = 353) ALT (SGPT) (BEAKER) 41 U/L 6-55 (test code = 347) EGFR (BEAKER) (test 52 mL/min/1.73 ESTIMA LEONIDAS GFR IS code = 1092) sq m NOT ACCURATE CREATININE CLEARANCE IN PREDICTING GLOMERULAR FILTRATION RATE . ESTIMATED GFR I S NOT APPLICABLE FOR DIALYSIS PATIEN TS. Regulatory Compliance Engineer ID - HUMBLE MPOCT-GLUCOSE [id number] 16:54:00 Test Item Value Reference Range Interpretation Comments POC-GLUCOSE METER 171 mg/dL 70-110 H : [facility] [place] [facility] [place]) (test code = [place] [facility], 1538) [address]: Regulatory Compliance Engineer/Techni aldo ID = [id number] for ALBINO GONZALEZ Hemoglobin [id number] 15:22:00 Test Item Value Reference Range Interpretation Comments Hemoglobin A1C (test code = 4548-4) 6.2 % 4.3-6.1 H Lab Interpretation (test code = Abnormal 69454-4) [facility] HospitalHEMOGLOBIN [id number] 15:22:00 Test Item Value Reference Range Interpretation Comments HEMOGLOBIN A1C ([place]) (test code = 6.2 % 4.3-6.1 H 368) POCT-GLUCOSE [id number] 12:56:00 Test Item Value Reference Range Interpretation Comments POC-GLUCOSE METER 93 mg/dL 70-110 : Notified RN/MD: TESTED (LIA) (test code = [facility], [address] 30: Regulatory Compliance Engineer/Techni aldo ID = [id number] for Simm vita, Arely [place], [id number] 12:02:00Reason for exam:->ERCP tomorrow [facility]SEPH[facility]: RIYA LUNA : 1950 Sex: FFluoroscopic unit utilized for a procedure performed in the OR. No interpretation was requested. Refer to the operative report for findings. Refer to PACS for patient radiation dose information.FL Endoscopic Retrograde [id number] 12:02:00Interface, External Ris In - 03/10/2021 12:18 PM CDTFluoroscopic unit utilized for a procedure performed in the OR. No interpretation was requested. Refer to the operative report for findings. Referto PACS for patient radiation dose information.[facility] HospitalPOCT-GLUCOSE [id number] 09:27:00 Test Item Value Reference Range Interpretation Comments POC-GLUCOSE METER 74 mg/dL 70-110 : TESTED A T [facility] [address] (BEAKER) (test code = [place], 1538) [address]: Regulatory Compliance Engineer/Techni aldo ID = [id number] for ALBINO ROSS COMPREHENSIVE METABOLIC [id number] 05:49:00 Test Item Value Reference Range Interpretation Comments TOTAL PROTEIN 6.8 gm/dL 6.0-8.3 (BEAKER) (test code = 770) ALBUMIN (BEAKER) 3.5 g/dL 3.5-5.0 (test code = 1145) ALKALINE PHOSPHATASE 45 U/L 40-150 (BEAKER) (test code = 346) BILIRUBIN TOTAL 0.3 mg/dL 0.2-1.2 (BEAKER) (test code = 377) SODIUM (BEAKER) (test 142 meq/L 136-145 code = 381) POTASSIUM (BEAKER) 3.9 meq/L 3.5-5.1 (test code = 379) CHLORIDE (BEAKER) 107 meq/L 98-107 (test code = 382) CO2 (BEAKER) (test 26 meq/L 22-29 code = 355) BLOOD UREA NITROGEN 13 mg/dL 7-21 (BEAKER) (test code = 354) CREATININE (BEAKER) 1.07 mg/dL 0.57-1.25 (test code = 358) GLUCOSE RANDOM 78 mg/dL 70-105 (BEAKER) (test code = 652) CALCIUM (BEAKER) 8.4 mg/dL 8.4-10.2 (test code = 697) AST (SGOT) (BEAKER) 35 U/L 5-34 H (test code = 353) ALT (SGPT) (BEAKER) 33 U/L 6-55 (test code = 347) EGFR (BEAKER) (test 50 mL/min/1.73 ESTIMA LEONIDAS GFR IS code = 1092) sq m NOT ACCURATE CREATININE CLEARANCE IN PREDICTING GLOMERULAR FILTRATION RATE . ESTIMATED GFR I S NOT APPLICABLE FOR DIALYSIS PATIEN TS. Regulatory Compliance Engineer ID - HUMBLE MC (Hemogram only)2021-03-10 05:10:00 Test Item Value Reference Range Interpretation Comments WBC (test code = 6690-2) 9.1 See_Comment [A utomated message] The system Finding Something 3 generated this result transmitted ref erence range: 3.5 - 10 .5 K/L. The refe rence range was not u sed to interpret this result as normal/abnor mal. RBC (test code = 789-8) 3.57 See_Comment L [Au tomated message] The system Finding Something 3 generated this result transmitted ref erence range: 3.93 - 5 .22 M/L. The refe rence range was not u sed to interpret this result as normal/abnor mal. MCHC (test code = 786-4) 30.9 See_Comment L [A utomated message] The system Finding Something 3 generated this result transmitted ref erence range: 32.2 - 3 5.5 GM/DL. The refe rence range was not u sed to interpret this result as normal/abnor mal. Hematocrit (test code = 33.7 % 34.1-44.9 L 4544-3) MCV (test code = 787-2) 94.4 fL 79.4-94.8 MCH (test code = 785-6) 29.1 pg 25.6-32.2 RDW (test code = 788-0) 13.1 % 11.7-14.4 Platelets (test code = 278 See_Comment [Aut omated message] 197-3) The system Finding Something 3 generated this result transmitted ref erence range: 150 - 45 0 K/CU MM. The referen ce range was not u sed to interpret this result as normal/abnor mal. MPV (test code = 9.3 fL 9.4-12.3 L 50839-8) nRBC (test code = 413) 0 See_Comment [Aut omated message] The system Finding Something 3 generated this result transmitted ref erence range: 0 - 0 /1 00 WBC. The refere nce range was not u sed to interpret this result as normal/abnor mal. Lab Interpretation (test Abnormal code = 63545-4) [facility] (HEMOGRAM ONLY)2021-03-10 05:10:00 Test Item Value Reference Range Interpretation Comments WHITE BLOOD CELL COUNT (BEAKER) 9.1 K/ L 3.5-10.5 (test code = 775) RED BLOOD CELL COUNT (BEAKER) 3.57 M/ L 3.93-5.22 L (test code = 761) HEMOGLOBIN (BEAKER) (test code = 10.4 GM/DL 11.2-15.7 L 410) HEMATOCRIT (BEAKER) (test code = 33.7 % 34.1-44.9 L 411) MEAN CORPUSCULAR VOLUME (BEAKER) 94.4 fL 79.4-94.8 (test code = 753) MEAN CORPUSCULAR HEMOGLOBIN 29.1 pg 25.6-32.2 (BEAKER) (test code = 751) MEAN CORPUSCULAR HEMOGLOBIN CONC 30.9 GM/DL 32.2-35.5 L (BEAKER) (test code = 752) RED CELL DISTRIBUTION WIDTH 13.1 % 11.7-14.4 (BEAKER) (test code = 412) PLATELET COUNT (BEAKER) (test 278 K/CU MM 150-450 code = 756) MEAN PLATELET VOLUME (BEAKER) 9.3 fL 9.4-12.3 L (test code = 754) NUCLEATED RED BLOOD CELLS 0 /100 WBC 0-0 (BEAKER) (test code = 413) POCT-GLUCOSE [id number] 00:05:00 Test Item Value Reference Range Interpretation Comments POC-GLUCOSE METER 83 mg/dL 70-110 : TESTED A T [facility] (BEAKER) (test code = [place], 1538) [address]: Regulatory Compliance Engineer/Techni aldo ID = [id number] for BRENDA VENCES SARS-CoV2/RT-PCR (Asymptomatic ONLY)2021-03-09 23:58:00 Test Item Value Reference Range Interpretation Comments SARS-COV2/RT-PCR Negative Not Detected, (test code = Negative, See 81092-5) external report for linked test [facility]COV-2 [facility] (test code = 21419-6) TORRES (test code = Negative result for this TORRES) test determines that SARS-CoV-2 RNA was not present in the specimen above the Limit of Detection (LOD). However, Negative results do not preclude SARS-CoV-2 infection and should not be used as the sole basis for treatment or patient management decisions. Negative results must be combined with clinical observations, patient history, and epidemiological information. A false negative result may occur if a specimen is improperly collected, transported or handled. A false negative result should be considered if patient's recent exposures or clinical presentation indicate that COVID-19 (SARS-CoV-2) is likely and diagnostic tests for other causes of illness are negative. Re-testing should be considered in cases of suspected false negatives. The limit of detection for this assay is 800 copies/mL. This SARS CoV-2 test is a real-time RT-PCR test intended for the qualitative detection of nucleic acid from SARS-CoV-2 in a nasopharyngeal swab specimen collected from individuals suspected of COVID-19 by their healthcare provider. This test has not been Food and Drug Administration (FDA) cleared or approved. This is a modified version of an approved Emergency Use Authorization (EUA) and is in the process of review by the FDA. Once authorized by the FDA, the issued EUA will be effective until the declaration that circumstances exist justifying the authorization of the emergency use of in vitro diagnostic tests for detection and/or diagnosis of COVID-19 is terminated under Section 564(b)(2) of the Act or the EUA is revoked under Section 564(g) of the Act. Fact Sheet for Healthcare Providers:https://www.[employer]/sites/default/f chance/product/documents/F act_Sheet_HC_Providers_L xch_CMDG-TjI-3.pdf Fact Sheet for Healthcare Patients:https://www.[employer]/sites/default/fi les/product/documents/Fa ct_Sheet_Patients_Lyra_S ARS-CoV-2.pdf Performing Laboratory:[facility] [place] [address] [facility])2021-03-09 23:58:00 Test Item Value Reference Range Interpretation Comments SARS-COV2/RT-PCR (test Negative Not Detected, Negative, code = 1413464) See external report for linked test SARS-COV-[address] [facility] (test code = 8992069) Negative result for this test determines that SARS-CoV-2 RNA was not present in the specimen above the Limit of Detection (LOD). However, Negative results do not preclude SARS-CoV-2 infection and should not be used as the sole basis for treatment or patient management decisions. Negative results mustbe combined with clinical observations, patient history, and epidemiological information. A false negative result may occur if a specimen is improperly collected, transported or handled. A false negative result should be considered if patient's recent exposures or clinical presentation indicate that COVID-19 (SARS-CoV-2) is likely and diagnostic tests for other causes of illness are negative. Re-testing should be considered in cases of suspected false negatives.The limit of detection for this assay is 800 copies/mL.This SARS CoV-2 test is a real-time RT-PCR test intended for the qualitative detection of nucleic acid from SARS-CoV-2 in a nasopharyngeal swab specimen collected from individuals susp ected of COVID-19 by their healthcare provider.This test has not been Food and Drug Administration (FDA) cleared or approved. This is a modified version of an approved Emergency Use Authorization (EUA) and is in the process of review by the FDA. Once authorized by the FDA, the issued EUA will be effective until the declaration that circumstances exist justifying the authorization of the emergency use of in vitro diagnostic tests for detection and/or diagnosis of COVID-19 is terminated under Section 564(b)(2) of the Act or the EUA is revoked under Section 564(g) of the Act.Fact Sheet for Healthcare Providers:https://www.[employer]/sites/default/files/product/documents/Fact_Shee o_SD_Ojlcbintd_Mmri_UNLH-TiL-9.pdfFact Sheet for Healthcare Patients:https://www.[employer]/sites/default/files/product/ documents/Zcmu_Ngnfz_Scusfnjb_Qcti_WCFS-IwM-7.pdfPerforming Laboratory:[facility], [place] [address]WIKN-XTHGTHF METER 2021-03-09 17:34:00 Test Item Value Reference Range Interpretation Comments POC-GLUCOSE METER 97 mg/dL 70-110 : TESTED A T [facility] (BEAKER) (test code = [place]AT[place], 1538) [address]: Regulatory Compliance Engineer/Techni aldo ID = [id number] for ALBINO ROSS MR, ABDOMEN, [id number] 17:11:00Unlisted Reason for Exam - Click Yes and Enter Reason Below->NoPatient with hyperdense material seen in distal CBD on CTA [facility]: RIYA LUNA : 1950 Sex: FFINAL REPORT MR, ABDOMEN, MRCP HISTORY: Biliary obstruction suspected COMPARISON: CT abdomen 12/29/2005 TECHNIQUE: MRI of the abdomen with exam tailored to evaluate the biliary tree and the pancreas. Multiplanar, multisequence images, including heavily T2-weighted MRCP sequences were obtained. FINDINGS: Bile ducts: Moderate intra and extrahepatic biliary ductal dilation with a T1 hyperintense T2 hypointense filling defect in the distal common bile duct measuring 11 mm.Liver: Diffuse signal loss from the in-phase to opposed-phase images, compatible with steatosis.Gallbladder: The gallbladder is surgically absent.Pancreas: Unremarkable. Additional Findings:Lung bases: Trace bilateral pleural effusions. Trace pericardial effusion..Spleen: UnremarkableAdrenals: UnremarkableKidneys and ureters: Unremarkable.Bowel: Small periampullary duodenal diverticulum. Nondilated bowelwith no wall thickening.Lymph nodes: Unremarkable.Peritoneum: Unremarkable.Vessels: UnremarkableAbdominal wall: Unremarkable.Bones: Mild compression deformity at L1 without marrow edema. IMPRESSION: A T1 hyperintense filling defect in the common bile duct, most likely a pigmented gallstone. Moderateintra and extrahepatic biliary ductal dilation. Hepatic steatosis. A mild compression deformity at L1 is new since CT 12/29/2005 but appears chronic Signed: Ashely Aly Verified Date/Time: 03/09/2021 17:11:18 Reading Location: [address] Transitional Reading Room MR abdomen without IV contrast [id number] 17:11:00 Interface, External Ris In - 03/09/2021 5:13 PM CDTFINAL REPORT MR, ABDOMEN,MRCP HISTORY: Biliary obstruction suspected COMPARISON: CT abdomen 12/29/2005 TECHNIQUE: MRI of the abdomen with exam tailored to evaluate the biliary tree and the pancreas. Multiplanar, multisequence images, including heavily T2-weighted MRCP sequences were obtained. FINDINGS: Bile ducts: Moderate intra and extrahepatic biliary ductal dilation with a T1 hyperintense T2 hypointense filling defect in the distal common bile duct measuring 11 mm.Liver: Diffuse signal loss from the in-phase to opposed-phase images, compatible with steatosis.Gallbladder: The gallbladder is surgically absent.Pancreas: Unr emarkable. Additional Findings:Lung bases: Trace bilateral pleural effusions. Trace pericardial effusion..Spleen: UnremarkableAdrenals: UnremarkableKidneys and ureters: Unremarkable.Bowel: Small periampullary duodenal diverticulum. Nondilated bowel with no wall thickening.Lymph nodes: Unremarkable.Peritoneum: Unremarkable.Vessels: UnremarkableAbdominal wall: Unremarkable.Bones: Mild compression deformity at L1 without marrow edema. IMPRESSION: A T1 hyperintense filling defect in the common bile duct, most likely a pigmented gallstone. Moderate intra and extrahepatic biliary ductal dilation. Hepatic steatosis. A mild compression deformity at L1 is new since CT 12/29/2005 but appears chronic Signed: Sheeba, Ashely MDReport Verified Date/Time: 03/09/2021 17:11:18 Reading Location: [address] Transitional Reading [facility] [id number] 12:41:00 Test Item Value Reference Range Interpretation Comments POC-GLUCOSE METER 92 mg/dL 70-110 : TESTED A T [facility] (BEAKER) (test code = [place], 1538) [address]: Regulatory Compliance Engineer/Techni aldo ID = [id number] for PARESH NO ALBINO Urinalysis w/Microscopic + Reflex to [id number] 11:21:00 Test Item Value Reference Range Interpretation Comments Color, UA (test code Light Yellow = 5778-6) Clarity, UA (test Clear code = 5767-9) Specific [place], UA 1.033 1.001-1.035 (test code = 5811-5) pH, UA (test code = 5.5 5.0-8.0 5803-2) Protein, UA (test Negative Negative code = 49468-2) Glucose, UA (test Negative Negative code = 365) Ketones, UA (test Negative Negative code = 2514-8) Bilirubin, UA (test Negative Negative code = 85580-1) Blood, UA (test code Trace Negative A = 27087-1) Nitrite, UA (test Negative Negative code = 5802-4) Leukocytes, UA (test Negative Negative code = 5799-2) Urobilinogen, UA 0.2 mg/dL 0.2-1 (test code = 61989-7) RBC, UA (test code = 2 See_Comment [Autom ated 34919-5) message] The system which generated this result transmit leonidas reference range : /HPF. The reference range was not used to interpret this result as normal/abnormal . WBC, UA (test code = 1 See_Comment [Autom ated 5821-4) message] The system which generated this result transmit leonidas reference range : /HPF. The reference range was not used to interpret this result as normal/abnormal . Bacteria, UA (test None Seen code = 96960-4) Mucus (test code = Rare 8247-9) Squam Epithel, UA 1 See_Comment [Automate d (test code = 02320-3) messag e] The system which generated this result transmit leonidas reference range : /HPF. The reference range was not used to interpret this result as normal/abnormal . Crystals, Urine (test None Seen code = 46942-8) Specimen Source (test code = 2795) TORRES (test code = TORRES) Regulatory Compliance Engineer ID - [auto]Regulatory Compliance Engineer ID - tech Lab Interpretation Abnormal (test code = 99969-6) [facility] [id number] 11:21:00 Test Item Value Reference Range Interpretation Comments COLOR (BEAKER) (test code = 470) Light Yellow CLARITY (BEAKER) (test code = Clear 469) SPECIFIC GRAVITY UA (BEAKER) 1.033 1.001-1.035 (test code = 468) PH UA (BEAKER) (test code = 467) 5.5 5.0-8.0 PROTEIN UA (BEAKER) (test code = Negative Negative 464) GLUCOSE UA (BEAKER) (test code = Negative Negative 365) KETONES UA (BEAKER) (test code = Negative Negative 371) BILIRUBIN UA (BEAKER) (test code Negative Negative = 462) BLOOD UA (BEAKER) (test code = Trace Negative A 461) NITRITE UA (BEAKER) (test code = Negative Negative 465) LEUKOCYTE ESTERASE UA (BEAKER) Negative Negative (test code = 466) UROBILINOGEN UA (BEAKER) (test 0.2 mg/dL 0.2-1.0 code = 463) RBC UA (BEAKER) (test code = 2 /HPF 519) WBC UA (BEAKER) (test code = 1 /HPF 520) BACTERIA (BEAKER) (test code = None Seen 517) MUCUS (BEAKER) (test code = Rare 1574) SQUAMOUS EPITHELIAL (BEAKER) 1 /HPF (test code = 516) CRYSTALS, URINE (BEAKER) (test None Seen code = 1521) SOURCE(BEAKER) (test code = 2795) Regulatory Compliance Engineer ID - [auto]Regulatory Compliance Engineer ID - techHEMOGLOBIN [id number] 10:22:00 Test Item Value Reference Range Interpretation Comments HEMOGLOBIN A1C (BEAKER) (test code = 6.1 % 4.3-6.1 368) Basic metabolic [id number] 06:48:00 Test Item Value Reference Range Interpretation Comments Sodium (test code = 141 meq/L 574-496 2822-2) Potassium (test code = 4.2 meq/L 3.5-5.1 2823-3) Chloride (test code = 106 meq/L 98-107 2075-0) CO2 (test code = 25 meq/L 22-29 2028-9) BUN (test code = 16 mg/dL 7-21 3094-0) Creatinine (test code 1.20 mg/dL 0.57-1.25 = 2160-0) Glucose (test code = 88 mg/dL 70-105 2345-7) Calcium (test code = 8.3 mg/dL 8.4-10.2 L 80503-3) EGFR (test code = 44 mL/min/1.73 [place] [address]-4) NOT ACCURATE CREATININE CLEARANCE IN PREDICTING GLOMERULAR FILTRATION RATE . ESTIMATED GFR I S NOT APPLICABLE FOR DIALYSIS PATIENTS. TORRES (test code = TORRES) Regulatory Compliance Engineer ID - ELVIN Kiran Lab Interpretation Abnormal (test code = 81437-5) [facility] HospitalHepatic function [id number] 06:48:00 Test Item Value Reference Range Interpretation Comments Protein, Total (test 7.8 See_Comment [Autom ated code = 2885-2) message] The system which generated this result transmit leonidas reference range : 6.0 - 8.3 gm/dL . The reference range was not u sed to interpret th is result as normal/abnormal . Albumin (test code = 4.0 g/dL 3.5-5 70804-6) Total Bilirubin (test 0.3 mg/dL 0.2-1.2 code = 1975-2) Bilirubin, Direct 0.1 mg/dL 0.1-0.5 (test code = 1968-7) Alkaline Phosphatase 53 U/L 40-150 (test code = 6768-6) AST (test code = 29 U/L 5-34 1920-8) ALT (test code = 30 U/L 6-55 1742-6) TORRES (test code = TORRES) Regulatory Compliance Engineer ID - ELVIN W Lab Interpretation Normal (test code = 15596-3) [facility]esium2021-06-28 06:48:00 Test Item Value Reference Range Interpretation Comments Magnesium (test code = 2.1 mg/dL 1.6-2.6 52601-1) TORRES (test code = TORRES) Regulatory Compliance Engineer ID Carlo Kiran Lab Interpretation (test Normal code = 67596-2) [facility]BASIC METABOLIC [id number] 06:48:00 Test Item Value Reference Range Interpretation Comments SODIUM (BEAKER) 141 meq/L 136-145 (test code = 381) POTASSIUM (BEAKER) 4.2 meq/L 3.5-5.1 (test code = 379) CHLORIDE (BEAKER) 106 meq/L 98-107 (test code = 382) CO2 (BEAKER) (test 25 meq/L 22-29 code = 355) BLOOD UREA NITROGEN 16 mg/dL 7-21 (BEAKER) (test code = 354) CREATININE (BEAKER) 1.20 mg/dL 0.57-1.25 (test code = 358) GLUCOSE RANDOM 88 mg/dL 70-105 (BEAKER) (test code = 652) CALCIUM (BEAKER) 8.3 mg/dL 8.4-10.2 L (test code = 697) EGFR (BEAKER) (test 44 mL/min/1.73 ESTIMA LEONIDAS GFR IS code = 1092) sq m NOT ACCURATE CREATININE CLEARANCE IN PREDICTING GLOMERULAR FILTRATION RATE . ESTIMATED GFR I S NOT APPLICABLE FOR DIALYSIS PATIEN TS. Regulatory Compliance Engineer ID Carlo OCONNOR [id number] 06:48:00 Test Item Value Reference Range Interpretation Comments MAGNESIUM (BEAKER) (test code = 2.1 mg/dL 1.6-2.6 627) Regulatory Compliance Engineer ID Carlo OCONNOR WHEPATIC FUNCTION [id number] 06:48:00 Test Item Value Reference Range Interpretation Comments TOTAL PROTEIN (BEAKER) (test code = 7.8 gm/dL 6.0-8.3 770) ALBUMIN (BEAKER) (test code = 1145) 4.0 g/dL 3.5-5.0 BILIRUBIN TOTAL (BEAKER) (test code 0.3 mg/dL 0.2-1.2 = 377) BILIRUBIN DIRECT (BEAKER) (test 0.1 mg/dL 0.1-0.5 code = 706) ALKALINE PHOSPHATASE (BEAKER) (test 53 U/L 40-150 code = 346) AST (SGOT) (BEAKER) (test code = 29 U/L 5-34 353) ALT (SGPT) (BEAKER) (test code = 30 U/L 6-55 347) Regulatory Compliance Engineer UNA OCONNOR WProthrombin time/[id number] 06:32:00 Test Item Value Reference Interpretation Comments Range Protime (test code = 12.9 See_Comment [Autom ated 5902-2) message] The system which generated this result transmitted reference range : 11.9 - 14.2 seconds. The reference range was not used to interpret this result as normal/abnormal . INR (test code = 0.99 See_Comment [Automated 6301-6) message] The system which generated this result transmitted reference range : <=5.90. The reference range was not used to interpret this result as normal/abnormal . TORRES (test code = RECOMMENDED TORRES) COUMADIN/WARFARIN INR THERAPY RANGESSTANDARD DOSE: 2.0 - 3.0 Includes: PROPHYLAXIS for venous thrombosis, systemic embolization; TREATMENT for venous thrombosis and/or pulmonary embolus.HIGH RISK: Target INR is 2.5-3.5 for patients with mechanical heart valves. Lab Interpretation Normal (test code = 93255-9) [facility] HospitalPROTHROMBIN TIME/[id number] 06:32:00 Test Item Value Reference Range Interpretation Comments PROTIME (BEAKER) 12.9 seconds 11.9-14.2 (test code = 759) INR (BEAKER) (test 0.99 See_Comment [Automat ed message] code = 370) The system Finding Something 3 generated this result transmitted ref erence range: <=5.90. The reference range was not used to int erpret this result as normal/abnormal . RECOMMENDED COUMADIN/WARFARIN INR THERAPY RANGESSTANDARD DOSE: 2.0 - 3.0 Includes: PROPHYLAXIS forvenous thrombosis, systemic embolization; TREATMENT for venous thrombosis and/or pulmonary embolus.HIGH RISK: Target INR is 2.5-3.5 for patients with mechanical heart valves.CBC with platelet count + automated diff 2021-03-09 06:29:00 Test Item Value Reference Range Interpretation Comments WBC (test code = 6690-2) 11.7 See_Comment H [A utomated message] The system Finding Something 3 generated this result transmitted ref erence range: 3.5 - 10 .5 K/L. The refe rence range was not u sed to interpret this result as normal/abnor mal. RBC (test code = 789-8) 3.74 See_Comment L [Au tomated message] The system Finding Something 3 generated this result transmitted ref erence range: 3.93 - 5 .22 M/L. The refe rence range was not u sed to interpret this result as normal/abnor mal. MCHC (test code = 786-4) 31.1 See_Comment L [A utomated message] The system Finding Something 3 generated this result transmitted ref erence range: 32.2 - 3 5.5 GM/DL. The refe rence range was not u sed to interpret this result as normal/abnor mal. Hematocrit (test code = 35.1 % 34.1-44.9 4544-3) MCV (test code = 787-2) 93.9 fL 79.4-94.8 MCH (test code = 785-6) 29.1 pg 25.6-32.2 RDW (test code = 788-0) 13.3 % 11.7-14.4 Platelets (test code = 320 See_Comment [Aut omated message] 777-3) The system Finding Something 3 generated this result transmitted ref erence range: 150 - 45 0 K/CU MM. The referen ce range was not u sed to interpret this result as normal/abnor mal. MPV (test code = 9.2 fL 9.4-12.3 L 10807-9) nRBC (test code = 413) 0 See_Comment [Aut omated message] The system Finding Something 3 generated this result transmitted ref erence range: 0 - 0 /1 00 WBC. The refere nce range was not u sed to interpret this result as normal/abnor mal. % Neutros (test code = 73 % 429) % Lymphs (test code = 22 % 430) % Monos (test code = 5 % 431) % Eos (test code = 432) 0 % % Baso (test code = 437) 0 % # Neutros (test code = 8.52 See_Comment H [Aut omated message] 670) The system Finding Something 3 generated this result transmitted ref erence range: 1.56 - 6 .13 K/L. The refe rence range was not u sed to interpret this result as normal/abnor mal. # Lymphs (test code = 2.53 See_Comment [Auto mated message] 414) The system Finding Something 3 generated this result transmitted ref erence range: 1.18 - 3 .74 K/L. The refe rence range was not u sed to interpret this result as normal/abnor mal. # Monos (test code = 0.62 See_Comment H [Autom ated message] 415) The system Finding Something 3 generated this result transmitted ref erence range: 0.24 - 0 .36 K/L. The refe rence range was not u sed to interpret this result as normal/abnor mal. # Eos (test code = 416) 0.00 See_Comment L [Au tomated message] The system Finding Something 3 generated this result transmitted ref erence range: 0.04 - 0 .36 K/L. The refe rence range was not u sed to interpret this result as normal/abnor mal. # Baso (test code = 417) 0.02 See_Comment [A utomated message] The system Finding Something 3 generated this result transmitted ref erence range: 0.01 - 0 .08 K/L. The refe rence range was not u sed to interpret this result as normal/abnor mal. Immature 0 % 0-1 Granulocytes-Relative (test code = 2801) Lab Interpretation (test Abnormal code = 99984-1) [facility] W/PLT COUNT & AUTO [id number] 06:29:00 Test Item Value Reference Range Interpretation Comments WHITE BLOOD CELL COUNT (BEAKER) 11.7 K/ L 3.5-10.5 H (test code = 775) RED BLOOD CELL COUNT (BEAKER) 3.74 M/ L 3.93-5.22 L (test code = 761) HEMOGLOBIN (BEAKER) (test code = 10.9 GM/DL 11.2-15.7 L 410) HEMATOCRIT (BEAKER) (test code = 35.1 % 34.1-44.9 411) MEAN CORPUSCULAR VOLUME (BEAKER) 93.9 fL 79.4-94.8 (test code = 753) MEAN CORPUSCULAR HEMOGLOBIN 29.1 pg 25.6-32.2 (BEAKER) (test code = 751) MEAN CORPUSCULAR HEMOGLOBIN CONC 31.1 GM/DL 32.2-35.5 L (BEAKER) (test code = 752) RED CELL DISTRIBUTION WIDTH 13.3 % 11.7-14.4 (BEAKER) (test code = 412) PLATELET COUNT (BEAKER) (test 320 K/CU MM 150-450 code = 756) MEAN PLATELET VOLUME (BEAKER) 9.2 fL 9.4-12.3 L (test code = 754) NUCLEATED RED BLOOD CELLS 0 /100 WBC 0-0 (BEAKER) (test code = 413) NEUTROPHILS RELATIVE PERCENT 73 % (BEAKER) (test code = 429) LYMPHOCYTES RELATIVE PERCENT 22 % (BEAKER) (test code = 430) MONOCYTES RELATIVE PERCENT 5 % (BEAKER) (test code = 431) EOSINOPHILS RELATIVE PERCENT 0 % (BEAKER) (test code = 432) BASOPHILS RELATIVE PERCENT 0 % (BEAKER) (test code = 437) NEUTROPHILS ABSOLUTE COUNT 8.52 K/ L 1.56-6.13 H (BEAKER) (test code = 670) LYMPHOCYTES ABSOLUTE COUNT 2.53 K/ L 1.18-3.74 (BEAKER) (test code = 414) MONOCYTES ABSOLUTE COUNT (BEAKER) 0.62 K/ L 0.24-0.36 H (test code = 415) EOSINOPHILS ABSOLUTE COUNT 0.00 K/ L 0.04-0.36 L (BEAKER) (test code = 416) BASOPHILS ABSOLUTE COUNT (BEAKER) 0.02 K/ L 0.01-0.08 (test code = 417) IMMATURE GRANULOCYTES-RELATIVE 0 % 0-1 PERCENT (BEAKER) (test code = 2801) MRI Brain wo contrast [id number] 16:25:00Patient Name: RIYA VERA: 1950. Age: 67 years. Gender: Female.MR: [id number]. Location: [facility]. Provider: Hollie Osorio MD.EXAM: Brain wo contrast MRI.PROVIDED CLINICAL HISTORY: Headaches for 2 months with pain radiating down theentire right side of the body. R51 HeadacheTECHNIQUE: Multi-sequence, multi-planar MR of the brain without gadoliniumcontrast. COMPARISON: No relevant prior exams available at the time of interpretation. FINDINGS: BRAIN: -- Mild confluent abnormally increased T2 and FLAIR signal throughout thesupratentorial periventricular deep white matter bilaterally, non-specific butmost commonly due to chronic small vessel ischemic disease.-- No areas of abnormally- restricted diffusion in a pattern suggestive ofacute or [...] abnormality. IMPRESSION: No acute intracranial abnormality. Mild chronicmicroangiopathic ischemic gliosis. SL: [id number] by: Finesse Dias MDDictated Date/time: 0 02/08/18 17:31Electronically Signed by: Finesse Dias MD 02/08/1817:40[facility]ALREPORTUnUint[facility] Brain w/wo contrast [id number] 13:39:00 Test Item Value Reference Range Interpretation Comments Brain w/wo contrast MRI Cancel Reason: Exam (test code = Brain w/wo Replaced contrast MRI) [facility]
[2021-04-03 14:24] LABS: Absolute Lymphocytes (CBC) 2.3 K/uL (0.7-4.9); Basophils % 0.6 % (0-1.3); Lymphocytes % 20.2 % (15.3-44.8); MPV 7.1 fL (7.6-11.3); RBC Red Blood Cell Count 3.98 M/uL (3.86-4.86)
[2021-04-03] MEDS ORDERED: ONDANSETRON 4 MG/2 ML VIAL ONE (14:44)
[2021-04-03] MEDS ORDERED: MORPHINE 4 MG/ML SYR ONE (14:44)
[2021-04-03] MEDS ORDERED: NA CHLORIDE 0.9% 1,000 ML ONE (14:45)
--- NOTE | 2021-04-03 14:52 | RAD REPORT ---
EXAM DESCRIPTION: CT - Abdomen Pelvis Wo Contrast - 04/03/2021 2:35 pm CLINICAL HISTORY: Abdominal pain. ABD PAIN COMPARISON: Abdomen Pelvis W Contrast dated 09/17/2019; Abdomen Pelvis W Contrast dated 06/06/2019; Abdomen Pelvis W Contrast dated 12/13/2018; Stone Protocol dated 12/12/2018 TECHNIQUE: CT imaging of the abdomen and pelvis was performed without contrast. Solid organ, bowel a nd vascular assessment is limited due to lack of IV and oral contrast. All CT scans are performed using dose optimization technique as appropriate and may include automated exposure control or mA/KV adjustment according to patient size. FINDINGS: The lower lung taylor are clear. Pneumobilia. No suspicious liver lesions are identified. Gallbladder is surgically absent. No adrenal lesions. The pancreas is within normal limits. The extrahepatic bile duct which is mostly gas-filled and dilated which is similar. No stones or hydronephrosis identified. No retroperitoneal lymphadenop athy. No ureteral calculi identified. Small hiatal hernia. Small duodenal diverticulum. Small fat con taining ventral hernia. No bowel obstruction, free air, free fluid or abscess. The appendix is normal. The osseous structures are within normal limits.L1 kyphoplasty. Remote left obturator ring fracture. IMPRESSION: No acute intra-abdominal or pelvic findings. Specifically, no urinary tract calculi or h ydronephrosis. Similar pneumobilia status post cholecystectomy. A limited non-contrast examination was performed as detailed.
[2021-04-03 15:11] LABS: ALT/SGPT 72 U/L (12-78); AST/SGOT 41 U/L (15-37); Albumin 3.7 g/dL (3.4-5.0); Alkaline Phosphatase 64 U/L (45-117); BUN Blood Urea Nitrogen 19 mg/dL (7-18); Bicarbonate 22 mmol/L (21-32); Bilirubin Direct < 0.1 mg/dL (0-0.2); Bilirubin Total 0.2 mg/dL (0.2-1.0); Glucose Level 96 mg/dL (74-106); Lipase 239 U/L (73-393); Potassium 4.3 mmol/L (3.5-5.1); Protein, Total 9.1 g/dL (6.4-8.2); Sodium Level 139 mmol/L (136-145)
[2021-04-03 15:20] LABS: Urine Blood 1+ (Negative); Urine Glucose Negative (Negative); Urine Protein Negative (Negative); Urine Specific Gravity <=1.005 (1.005-1.030)
[2021-04-03] MEDS ORDERED: HYDROMORPHONE HCL 1 MG/ML INJ ONE ×2 (16:12→17:33)
--- NOTE | 2021-04-03 16:25 | ER ---
Nurse's Notes [facility] Jose A Name: Alberto Botello Age: 70 yrs Sex: Female : 1950 Arrival Date: 04/03/2021 Time: 13:03 Bed 26 Private MD: Diagnosis: Upper abdominal pain, unspecified Presentation: 04/03 13:22 Chief complaint: Patient states: Abdominal pain that radiates to back starting three kg days ago but worse today. Coronavirus screen: Client denies travel out of the [place] in the last 14 days. At this time, unable to obtain information related to travel outside the [place] At this time, the client does not indicate any symptoms associated with coronavirus-19. Ebola Screen: Patient negative for fever greater than or equal to 101.5 degrees Fahrenheit, and additional compatible Ebola Virus Disease symptoms Patient denies exposure to infectious person. Patient denies travel to an Ebola-affected area in the 21 days before illness onset. Initial Sepsis Screen: Does the patient meet any 2 criteria? No. Patient's initial sepsis screen is negative. Does the patient have a suspected source of infection? No. Patient's initial sepsis screen is negative. Risk Assessment: Do you want to hurt yourself or someone else? Patient reports no desire to harm self or others. Onset of symptoms was March 31, 2021. 13:22 Method Of Arrival: Ambulatory kg 13:22 Acuity: ART 3 kg Triage Assessment: 13:25 General: Appears uncomfortable, Behavior is calm, cooperative, appropriate for age. kg Pain: Complains of pain in left upper quadrant and left lower quadrant Pain radiates to right mid back and right low back. Historical: - Allergies: 13:25 No Known Allergies; kg - PMHx: 13:25 Anxiety; Chronic pain; Diabetes - NIDDM; Hepatitis; Hypertension; Osteoporosis; kg Pancreatitis; - PSHx: 13:25 Cholecystectomy; kg - Immunization history:: Adult Immunizations up to date, Client reports receiving the 2nd dose of the Covid vaccine. - Social history:: Smoking status: Patient denies any tobacco usage or history of. - Family history:: not pertinent. Screenin:27 Abuse screen: Denies threats or abuse. Denies injuries from another. Nutritional kg screening: No deficits noted. Tuberculosis screening: No symptoms or risk factors identified. Fall Risk None identified. Fall in past 12 months (25 points). No secondary diagnosis (0 pts). IV access (20 points). Ambulatory Aid- Crutches/Cane/Walker (15 pts). Gait- Normal/Bed Rest/Wheelchair (0 pts) Mental Status- Oriented to own ability (0 pts). Total Huffman Fall Scale indicates No Risk (0-24 pts). Assessment: 14:18 General: Appears in no apparent distress. uncomfortable, Behavior is calm, cooperative, jd3 appropriate for age. Pain: Complains of pain in left flank and left lower quadrant Quality of pain is described as sharp, shooting, tender. Neuro: Level of Consciousness is awake, alert, obeys commands, Oriented to person, place, time, situation. Cardiovascular: Denies chest pain, Capillary refill < 3 seconds Patient's skin is warm and dry. Respiratory: Airway is patent Respiratory effort is even, unlabored, Respiratory pattern is regular, symmetrical, Denies cough, shortness of breath. GI: Abdomen is round non-distended, Abd is soft X 4 quads Abdomen is tender to palpation in left lower quadrant Reports lower abdominal pain, Patient currently denies constipation, diarrhea, nausea, vomiting. : No signs and/or symptoms were reported regarding the genitourinary system. EENT: No signs and/or symptoms were reported regarding the EENT system. Derm: Skin is intact, Skin is dry, Skin is normal, Skin temperature is warm. Musculoskeletal: Circulation, motion, and sensation intact. Range of motion: intact in all extremities. 14:46 Reassessment: Patient appears in no apparent distress at this time. No changes from jd3 previously documented assessment. Patient and/or family updated on plan of care and expected duration. Pain level reassessed. Patient is alert, oriented x 3, equal unlabored respirations, skin warm/dry/pink. 16:55 Reassessment: Patient appears in no apparent distress at this time. Patient and/or jd3 family updated on plan of care and expected duration. Pain level reassessed. Patient is alert, oriented x 3, equal unlabored respirations, skin warm/dry/pink. awaiting family for discharge home. Vital Signs: 13:22 BP 135 / 98; Pulse 90; Resp 20; Temp 98.3; Pulse Ox 99% on R/A; Weight 60.74 kg (M); kg Height 5 ft. 0 in. (152.40 cm) (R); Pain 10/10; 15:54 BP 170 / 84; Pulse 79; Resp 17 S; Pulse Ox 99% on R/A; jd3 16:56 BP 162 / 83; Pulse 78; Resp 17 S; Pulse Ox 98% on R/A; jd3 17:35 BP 172 / 80; Pulse 75; Resp 16 S; Pulse Ox 96% on R/A; jd3 13:22 Body Mass Index 26.15 (60.74 kg, 152.40 cm) kg ED Course: 13:03 Patient arrived in ED. ds1 13:25 Triage completed. kg 13:27 Patient has correct armband on for positive identification. Call light in reach. Side kg rails up X2. Adult w/ patient. 13:35 Diego Patterson MD is Attending Physician. ma2 14:17 Gregorio Aguirre, YOSVANY is Primary Nurse. jd3 14:17 Inserted saline lock: 22 gauge in left antecubital area, using aseptic technique. Blood jd3 collected. placed by [employer]. 14:20 Arm band placed on. jd3 14:32 Abdomen In Process Unspecified. EDMS 16:24 Miguel Larson MD is Referral Physician. ma2 16:25 No provider procedures requiring assistance completed. jd3 17:34 IV discontinued, intact, bleeding controlled, No redness/swelling at site. Pressure jd3 dressing applied. Administered Medications: 14:46 Drug: NS 0.9% 1000 ml Route: IV; Rate: 1 bolus; Site: left antecubital; jd3 15:45 Follow up: Response: No adverse reaction; IV Status: Completed infusion jd3 14:46 Drug: morphine 4 mg Route: IVP; Site: left antecubital; jd3 15:45 Follow up: Response: No adverse reaction; RASS: Alert and Calm (0) jd3 14:46 Drug: Zofran (Ondansetron) 4 mg Route: IVP; Site: left antecubital; jd3 15:45 Follow up: Response: No adverse reaction jd3 15:54 Drug: Dilaudid (HYDROmorphone) 1 mg Route: IVP; Site: left antecubital; jd3 16:24 Follow up: Response: No adverse reaction; RASS: Alert and Calm (0) jd3 17:34 Drug: Dilaudid (HYDROmorphone) 1 mg Route: IVP; Site: left antecubital; jd3 17:34 Follow up: Response: No adverse reaction; Medication administered at discharge.; RASS: jd3 Alert and Calm (0) 17:35 Follow up: Response: No adverse reaction; Medication administered at discharge.; RASS: jd3 Alert and Calm (0) Outcome: 16:25 Discharge ordered by MD. lai 17:34 Discharged to home via wheelchair, with family. jd3 17:34 Condition: stable 17:34 Discharge instructions given to patient, family, Instructed on discharge instructions, follow up and referral plans. medication usage, Demonstrated understanding of instructions, follow-up care, medications, Prescriptions given X 3. 17:35 Patient left the ED. jd3 Signatures: Dispatcher [employer] EDMS Abigail Silva1 Gregorio Aguirre RN RN jDiego Grajeda MD MD ma2 Graham, Kristen, RN RN kg
--- NOTE | 2021-04-03 16:25 | EDPHYS ---
Physician Documentation [facility] Name: Alberto Botello Age: 70 yrs Sex: Female : 1950 Arrival Date: 04/03/2021 Time: 13:03 Bed 26 Private MD: ED Physician Diego Patterson HPI: 04/03 13:57 This 70 yrs old Female presents to ER via Ambulatory with complaints of Abdominal Pain. ma2 13:57 Onset: The symptoms/episode began/occurred gradually, 1 day(s) ago. Associated signs ma2 and symptoms: Pertinent negatives: anorexia, constipation, dysuria, fever, vaginal discharge, vomiting blood. Severity of pain: At its worst the pain was mild in the emergency department the pain is unchanged. The patient has experienced similar episodes in the past. Upper quadrant abdominal pain, for 1 day constant, radiated to the left flank, she had lap cholecystectomy done in the past. No vomiting or urinary symptoms.. Historical: - Allergies: 13:25 No Known Allergies; kg - PMHx: 13:25 Anxiety; Chronic pain; Diabetes - NIDDM; Hepatitis; Hypertension; Osteoporosis; kg Pancreatitis; - PSHx: 13:25 Cholecystectomy; kg - Immunization history:: Adult Immunizations up to date, Client reports receiving the 2nd dose of the Covid vaccine. - Social history:: Smoking status: Patient denies any tobacco usage or history of. - Family history:: not pertinent. ROS: 13:57 Constitutional: Negative for fever, chills, and weight loss. ma2 13:57 All other systems are negative. Exam: 13:57 Constitutional: This is a well developed, well nourished patient who is awake, alert, ma2 and in no acute distress. Neck: Trachea midline, no thyromegaly or masses palpated, and no cervical lymphadenopathy. Supple, full range of motion without nuchal rigidity, or vertebral point tenderness. No Meningismus. Chest/axilla: Normal chest wall appearance and motion. Nontender with no deformity. No lesions are appreciated. Cardiovascular: Regular rate and rhythm with a normal S1 and S2. No gallops, murmurs, or rubs. Normal PMI, no JVD. No pulse deficits. Respiratory: Lungs have equal breath sounds bilaterally, clear to auscultation and percussion. No rales, rhonchi or wheezes noted. No increased work of breathing, no retractions or nasal flaring. Abdomen/GI: Left upper quadrant abdominal pain tenderness, otherwise normal bowel sounds. No distension or tympany. No guarding or rebound. Back: No spinal tenderness. No costovertebral tenderness. Full range of motion. Skin: Warm, dry with normal turgor. Normal color with no rashes, no lesions, and no evidence of cellulitis. MS/ Extremity: Pulses equal, no cyanosis. Neurovascular intact. Full, normal range of motion. Neuro: Awake and alert, GCS 15, oriented to person, place, time, and situation. Cranial nerves II-XII grossly intact. Motor strength 5/5 in all extremities. Sensory grossly intact. Cerebellar exam normal. Normal gait. Vital Signs: 13:22 BP 135 / 98; Pulse 90; Resp 20; Temp 98.3; Pulse Ox 99% on R/A; Weight 60.74 kg (M); kg Height 5 ft. 0 in. (152.40 cm) (R); Pain 10/10; 15:54 BP 170 / 84; Pulse 79; Resp 17 S; Pulse Ox 99% on R/A; jd3 16:56 BP 162 / 83; Pulse 78; Resp 17 S; Pulse Ox 98% on R/A; jd3 17:35 BP 172 / 80; Pulse 75; Resp 16 S; Pulse Ox 96% on R/A; jd3 13:22 Body Mass Index 26.15 (60.74 kg, 152.40 cm) kg MDM: 13:57 Differential diagnosis: diverticulitis, gastritis, gastroesophageal reflux disease, ma2 Irritable bowel syndrome. 16:24 Data reviewed: vital signs, nurses notes. Counseling: I had a detailed discussion with maTiffany the patient and/or guardian regarding: the historical points, exam findings, and any diagnostic results supporting the discharge/admit diagnosis, the presence of at least one elevated blood pressure reading (>120/80) during this emergency department visit, the need for outpatient follow up. Response to treatment: the patient's symptoms have markedly improved after treatment. 16:25 Patient medically screened. [facility] 04/03 13:35 Order name: Basic Metabolic Panel; Complete Time: 16:09 [facility] 04/03 13:35 Order name: CBC with Diff; Complete Time: 16:09 [facility] 04/03 13:35 Order name: Hepatic Function; Complete Time: 16:09 [facility] 04/03 13:35 Order name: Lipase; Complete Time: 16:09 [facility] 04/03 15:20 Order name: Urine Dipstick-Ancillary; Complete Time: 16:09 [facility] 04/03 13:35 Order name: IV Saline Lock; Complete Time: 14:17 [facility] 04/03 13:35 Order name: Labs collected and sent; Complete Time: 14:17 [facility] 04/03 14:28 Order name: Abdomen ; Complete Time: 16:09 [facility] 04/03 13:36 Order name: Urine Dipstick-Ancillary (obtain specimen); Complete Time: 15:20 [facility] 04/03 14:31 Order name: Labs - recollect needed: chemistry tube hemolyzed; Complete Time: 14:46 eb Administered Medications: 14:46 Drug: NS 0.9% 1000 ml Route: IV; Rate: 1 bolus; Site: left antecubital; jd3 15:45 Follow up: Response: No adverse reaction; IV Status: Completed infusion jd3 14:46 Drug: morphine 4 mg Route: IVP; Site: left antecubital; jd3 15:45 Follow up: Response: No adverse reaction; RASS: Alert and Calm (0) jd3 14:46 Drug: Zofran (Ondansetron) 4 mg Route: IVP; Site: left antecubital; jd3 15:45 Follow up: Response: No adverse reaction jd3 15:54 Drug: Dilaudid (HYDROmorphone) 1 mg Route: IVP; Site: left antecubital; jd3 16:24 Follow up: Response: No adverse reaction; RASS: Alert and Calm (0) jd3 17:34 Drug: Dilaudid (HYDROmorphone) 1 mg Route: IVP; Site: left antecubital; jd3 17:34 Follow up: Response: No adverse reaction; Medication administered at discharge.; RASS: jd3 Alert and Calm (0) 17:35 Follow up: Response: No adverse reaction; Medication administered at discharge.; RASS: jd3 Alert and Calm (0) Disposition Summary: 04/03/21 16:25 Discharge Ordered Location: Home ma2 Condition: Stable ma2 Diagnosis - Upper abdominal pain, unspecified ma2 Followup: ma2 - With: Private Physician - When: Tomorrow - Reason: Wound Recheck, If symptoms return Followup: ma2 - With: Miguel Larson MD - When: Tomorrow - Reason: Continuance of care Discharge Instructions: - Discharge Summary Sheet jd3 - Abdominal Pain, Adult ma2 Forms: - Medication Reconciliation Form ma2 - Thank You Letter ma2 - Antibiotic Education ma2 - Prescription Opioid Use ma2 Prescriptions: - Zofran 4 mg Oral Tablet - take 1 tablet by ORAL route every 12 hours As needed; 20 tablet; Refills: 0, ma2 Product Selection Permitted - Pepcid 20 mg Oral Tablet - take 1 tablet by ORAL route once daily; 20 tablet; Refills: 0, Product ma2 Selection Permitted - Diclofenac Sodium 75 mg Oral Tablet Sustained Release - take 1 tablet by ORAL route 2 times per day; 30 tablet; Refills: 0, Product ma2 Selection Permitted Signatures: Dispatcher [employer] Gregorio Matamoros RN RN jd3 Diego Patterson MD MD ma2 Veronica Chappell Kristen, YOSVANY RN kg Corrections: (The following items were deleted from the chart) 14:28 13:36 Abdomen Pelvis W Con+CT.RAD.BRZ ordered. SHANNEN PRIDE
[2021-04-03 17:39] VITALS: TEMP 98.3
[2021-04-03 17:45] VITALS: BP 172/80; O2SAT 96
== END 2021-04-03 17:35 | disposition home or self-care (01) ==
LOC: ER 13:01
DX: R10.10 Upper abdominal pain, unspecified (principal); I10 Essential (primary) hypertension; Z90.49 Acquired absence of other specified parts of digestive tract
CPT/HCPCS: 96361; 85025; 80048; 36415; 82565; 80076; 81003; 83690; 74176; 96375; 96374; 99284; J1170 ×2; J7030; J2405

== ENCOUNTER 2021-04-05 12:51 | Emergency (ER) | payer OTHER ==
--- OUTSIDE RECORDS SUMMARY | 2021-04-05 12:55 | XMS REPORT | Continuity of Care Document ---
:1950 Author Organization [facility] t Address [address] [place] [address] Dr. Briseno. [address] [place] [address] Care Team Providers Name Role Phone Ervin [...] Expiration Date Sour ce Number MEDICAREMEDICARE A [id number] 2021 EDWARD Tian [id number] 00:00:00 - [facility] MEDICAIDMEDICAID OF [id number] 2021 EDWARD iTan [id number] 2020 00:00:00 - [facility] Problems Condition Condition Condition Status Onset Resolution Last Treating Co mments Source Name Details Category Date Date Treatment Clinician Date Abdominal Abdominal Disease Active [facility] R[facility] - Diagnosis Active 2018-02-24 Mem oria HEADACHE 02-03 07:04:00 l R51 - 00:01: [place] HEADACHE 00 Active 02/03/2018 [facility] MILD Diagnosis Active 2016-03-23 Mem oria STEATOSIS - 12:46:00 l MILD 12:44: Sherif STEATOSIS 00 Active 03/23/2016 [facility] BDDC - F/U Diagnosis Active 2015-12-16 Memoria 3-28 15:27:00 l BDDC - 00:00: Sherif F/U 00 Active 12/08/2015 [facility] R10.9 - Diagnosis Active 2015-12-11 Me moria UNSPECIFIE 3-24 12:56:00 l D R10.9 - 00:01: [place] ABDOMINAL UNSPECIFIE 00 PAIN D ABDOMINAL PAIN Active 12/04/2015 [facility] FOLLOW UP Diagnosis Active 2015-12-16 Memoria 3-18 15:18:00 l FOLLOW 00:00: [place] UP 00 Active 6 [facility] STOMACH Diagnosis Active 2015-11-24 Me moria PAIN 3-04 13:16:00 l SELF STOMACH 00:00: [place] REFERRAL PAIN 00 SELF REFERRAL Active 11/14/2015 [facility] Anxiety Problem Active 2018-02-11 Keith cayla (finding) 01:51:21 l Anxiety Sherif (finding) Active Problem 02/11/2018 [facility], [facility], [facility] [place] Chronic Problem Active 2018-02-11 Keith cayla hepatitis 01:51:21 l C Chronic Sherif (disorder) hepatitis C (disorder) Active Problem 02/11/2018 [facility], [facility], [facility] [place] Depressive Problem Active 2018-02-11 M emoria disorder 01:51:21 l (disorder) Ramiro n Depressive disorder (disorder) Active Problem 02/11/2018 [facility], OPID Friendswmaude miranda, OPID Marko Gallbladde Problem Active 2018-02-11 M emoria r calculus 01:51:21 l (disorder) Ramiro n Nikkye r calculus (disorder) Active Problem 02/11/2018 [facility], OPID Friendskarley d, [facility] [place] MEDICAL Diagnosis Active 2015-12-16 Me moria SERVICES 15:18:00 l NOT MEDICAL [place] AVAILABLE SERVICES IN HOME NOT AVAILABLE IN HOME Active [facility] ALCOHOLIC Diagnosis Active 2015-12-16 Memoria FATTY 15:27:00 l LIVER Sherif ALCOHOLIC FATTY LIVER Active [facility] 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-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 Jeannette nn DEFORMITIE SPECIFIED S CONGENITAL DEFORMITIE S Active [facility] FATTY Diagnosis Active 2016-03-23 Mem oria (CHANGE 12:46:00 l OF) LIVER, FATTY Jeannette nn NOT (CHANGE ELSEWHERE OF) LIVER, C NOT ELSEWHERE C Active [facility] Hypertensi Hypertensi Disease Active C HI [facility] Diabetes Diabetes Disease Active [facility] S t mellitus mellitus [facility] New onset New onset Problem Active Uni [...] of [place] lung cancer Physicians Social History Social Habit Start Date Stop Date Quantity Comments Source Sex Assigned At [facility] Tobacco use and 2021-03-10 2021-03-10 Never used [facility] - exposure 00:00:00 00:00:00 Medical [facility] Alcohol intake 2021-03-10 2021-03-10 Ex-drinker [facility] es - 00:00:00 00:00:00 (finding) [facility] Smoking Status Start Date Stop Date Source [...] MCG 11:35: mouth Medical capsule 13 daily. [facility] alendronate Yes 70mg Take 70 mg [facility] [...] - 25 mg 00:00: Medical tablet 00 [facility] Nortriptyli Nortriptyli Yes HOLLIE TAKE 1 Univers ne HCl - 25 ne HCl - 25 5-30 JO M.D. CAPSULE AT ity of MG Oral MG Oral 00:00: BEDTIME. Arnie as Capsule Capsule 00 Physici ans Hemocyte Hemocyte Yes R.N. Unive rs Plus 106-1 Plus 106-1 5-23 ity of MG Oral MG Oral 00:00: [place] Capsule Capsule 00 Physici ans Lisinopril Lisinopril Yes R.N. Q0.5D TAKE 1 Univers 10 MG Oral 10 MG Oral 5-23 TABLET i ty of Tablet Tablet 00:00: TWICE [place] 00 DAILY. Physici ans MetFORMIN MetFORMIN Yes [...] AT ity of Tablet Tablet 00:00: BEDTIME. [place] 00 Physici ans Omeprazole Omeprazole Yes R.N. 1 QD TAKE 1 Univers 40 MG Oral 40 MG Oral 5-23 CAPSULE ity of Capsule Capsule 00:00: DAILY [place] Delayed Delayed 00 Physici Release Release ans [...] microgram l Oral 20:42: = 1 cap, [place] Capsule 00 PO, Daily, [Linzess] 30 minutes [...] microgram l Oral 18:20: = 1 cap, [place] Capsule 00 PO, BID, # [Amitiza] 60 tab, 0 Refill(s) linaclotide Yes 145 Memori a 0.145 MG 3-14 microgram l Oral 18:20: = 1 cap, [place] Capsule 00 PO, Daily, [Linzess] 30 minutes [...] tab, PO, l tablet 18:20: Daily, # [place] 00 30 tab, 0 Refill(s) Metoclopram Yes [...] tab, PO, l tablet 18:20: Q4H, PRN [place] 00 Pain, 0 Refill(s) Vital Signs Vital Name Observation Time Observation Value Comments Source Systolic blood 2021-03-11 189 mm[Hg] [facility] - pressure 08:18:00 [facility] Diastolic blood 2021-03-11 81 mm[Hg] [facility] - pressure 08:18:00 [facility] Heart rate 2021-03-11 66 /min [facility] - 08:18:00 [facility] Body temperature 2021-03-11 36.28 Carolann [facility] - 08:18:00 [facility] Respiratory rate 2021-03-11 18 /min [facility] - 08:18:00 [facility] Oxygen saturation 2021-03-11 94 /min [facility] - in Arterial blood 08:18:00 [facility] nter by Pulse oximetry Body weight 2021-03-10 62.596 kg [facility] - 11:08:00 [facility] BP Systolic 2018-02-01 131 mm[Hg] [facility] 08:36:00 Position: [place] Physician s Sitting BP Diastolic 2018-02-01 78 mm[Hg] [facility] 08:36:00 Position: [place] Physician s Sitting Height 2018-02-01 60 [in_us] [facility] 08:36:00 [place] Physician s Weight 2018-02-01 117 [lb_av] [facility] 08:36:00 [place] Physician s Body Mass Index 2018-02-01 22.85 kg/m2 University o f Calculated 08:36:00 [place] [facility] s Heart Rate 2018-02-01 73 /min Location: [facility] [place] [facility] 08:36:00 Brachial [place] [facility]ician s Artery; [...] Performed POCT-GLUCOSE METER 2021-03-11 08:21:00 Jessica Boone [facility] COMPREHENSIVE METABOLIC 2021-03-11 06:09:00 Clive Alfredo [facility] REPORT OF PROCEDURE - 2021-03-10 23:43:51 Allen Chavez [facility] - ENDOS[facility] POCT-GLUCOSE METER 2021-03-10 16:43:00 Jessica Boone [facility] POCT-GLUCOSE METER 2021-03-10 12:45:00 [facility] 2021-03-10 12:02:00 Desiree Duggan [facility] ERCP,PAPILLOTOMY 2021-03-10 11:31:00 Santiagovan [facility] PROCEDURE W/ C-ARM 2021-03-10 11:31:[facility] ERCP,BALLOON SWEEPING 2021-03-10 11:31:00 Santiagovan [facility] POCT-GLUCOSE METER 2021-03-10 09:07:00 Paolo [facility] ED CBC (HEMOGRAM ONLY) 2021-03-10 04:50:00 [facility] COMPREHENSIVE METABOLIC 2021-03-10 04:50:00 [facility] HEMOGLOBIN A1C 2021-03-10 04:50:00 [facility] POCT-GLUCOSE METER 2021-03-09 23:54:00 [facility] ([facility] & 2021-03-09 20:13:00 Desiree Duggan [facility] - REF LABS) [facility] POCT-GLUCOSE METER 2021-03-09 17:22[facility]00 [facility]BDOMEN WO CONTRAST 2021-03-09 15:38:00 [facility] POCT-GLUCOSE METER 2021-03-09 12:22:00 [facility] URINALYSIS W/ REFLEX 2021-03-09 10:56:00 [facility] URINE CULTURE [facility] HEPATIC FUNCTION PANEL 2021-03-09 05:25:00 [facility] PROTHROMBIN TIME/INR 2021-03-09 05:25:00 [place] [facility] MAGNESIUM 2021-03-09 05:25:00 [place] [facility] BASIC METABOLIC PANEL 2021-03-09 05:25:00 [place] [facility] (7) [facility] CBC W/PLT COUNT & AUTO 2021-03-09 05:25:00 [place] [facility] S t [facility] HEMOGLOBIN A1C 2021-03-09 05:25:00 [place] [facility] MRI Brain wo contrast 2018-02-08 00:00:00 [facility] [id number] Physicians MRI Brain w/wo contrast 2018-02-01 00:00:00 [facility] [address] Physicians Biopsy of liver [facility] Cataract surgery [facility] Colonoscopy [facility] Endoscopy [facility] Hysterectomy [facility] MRI of abdomen [facility] MRI of kidneys [facility] Ultrasound [facility] History of Gallbladder [facility] surgery Physicians Plan of Care Planned Activity Planned Date Details Comments Source Future Scheduled 2021-09-09 Hemoglobin A1c [facility] kes - Test 00:00:00 [facility] (procedure) [code = 20057308] Future Scheduled 2021-05-13 INFLUENZA VACCINE (#1) [facility] Test 00:00:00 [code = INFLUENZA Medical Ce nter VACCINE (#1)] Future Scheduled 2021-03-08 Medicare IPPE (WELCOME [facility] - Test 00:00:00 TO MEDICARE) [code = Medical Center Medicare IPPE (WELCOME TO MEDICARE)] Future Scheduled 2013 PNEUMOCOCCAL 65+ YRS [facility] - Test 00:00:00 (1 of 1 - Medical Center [id number] PCV13) [code = PNEUMOCOCCAL 65+ YRS (1 of 1 - XOAF11_Hjutkhs PCV13)] Future Scheduled 1998 SHINGLES VACCINES (1 [...] 00:00:00 examination Medical Center (regime/therapy) [code = 619596527] Future Scheduled 1958 Urine screening [facility] - Test 00:00:00 protein (procedure) Medical Center [code = 557673127] Future Scheduled [address] [facility] - Test 00:00:00 malignant neoplasm of [facility] breast (procedure) [code = 045724217] Future Scheduled [address] [facility] - Test 00:00:00 malignant neoplasm of [facility] colon (procedure) [code = 754479674] Encounters Start End Encounter Admission Attending Care Care Encounter Source Date/Time Date/Time Type Type Clinicians Facility Department ID 2018-02-08 2018-02-08 Outpatient Jo [id number] 13:20:00 23:59:00 Hollie Jensen [id number] 2018-02-01 2018-02-[facility] Neurology [id number] Univers 08:00:00 08:00:00 t; HOLLIE OSORIO ity of CHRISTINA, M.D. [place] M.D. Physici ans 2016-03-23 2016-03-23 Outpatient [facility] [id number] 12:44:00 23:59:00 Eddi Vigil 2016-03-23 2016-03-23 Outpatient [facility] [id number] 11:35:00 23:59:00 Roseanna Vigil 2015-12-16 2015-12-16 Outpatient [facility] [id number] 15:20:00 23:59:00 Tahira Vigil 2015-12-11 2015-12-11 Outpatient Chema [facility] [id number] 13:01:00 23:59:00 [place] 2015-12-02 2015-12-02 Outpatient Chema [facility] [id number] 14:23:00 23:59:00 [place] 03 2015-11-24 2015-11-24 Outpatient Chema [facility] [id number] 13:06:00 23:59:00 [place] Results Test Description Test Time Test Comments Results Result Comments Source POC-Glucose meter 2021-03-11 08:41:00 Test Item Value Reference Range Interpretation Comme nts POC-Glucose Meter (test code = 104 mg/dL 70-110 : TESTED AT [facility] [address] [facility] 1538) [facility], 770 30: Newspaper Photographer/Techni aldo ID = [id number] for HUSSEIN LEMON Lab Interpretation (test code = Normal 94117-1) [facility] [id number] 08:41:00 Test Item Value Reference Range Interpretation Comments POC-GLUCOSE METER 104 mg/dL 70-110 : TESTED A T [facility] [address] (BEAKER) (test code = BERTNE R [facility], 1538) [address]: Newspaper Photographer/Techni aldo ID = [id number] for HUSSEIN DAVID Comprehensive metabolic [id number] 06:49:00 Test Item Value Reference Range Interpretation Comments Protein, Total (test 6.8 See_Comment [Autom ated code = 2885-2) message] The system which generated this result transmit leonidas reference range : 6.0 - 8.3 gm/dL . The reference range was not u sed to interpret th is result as normal/abnormal . Albumin (test code = 3.5 g/dL 3.5-5 27330-5) Alkaline Phosphatase 44 U/L 40-150 (test code = 6768-6) Total Bilirubin (test 0.3 mg/dL 0.2-1.2 code = 1975-2) Sodium (test code = 139 meq/L 865-055 7590-2) Potassium (test code 3.8 meq/L 3.5-5.1 = 2823-3) Chloride (test code = 104 meq/L 98-107 2075-0) CO2 (test code = 27 meq/L -29 8-9) BUN (test code = 12 mg/dL 7-21 3094-0) Creatinine (test code 1.05 mg/dL 0.57-1.25 = 2160-0) Glucose (test code = 79 mg/dL 70-105 2345-7) Calcium (test code = 8.4 mg/dL 8.4-10.2 93148-8) AST (test code = 49 U/L 5-34 H 1920-8) ALT (test code = 41 U/L 6-55 1742-6) EGFR (test code = 52 mL/min/1.73 [place] [address]-3) NOT ACCURATE CREATININE CLEARANCE IN PREDICTING GLOMERULAR FILTRATION RATE . ESTIMATED GFR I S NOT APPLICABLE FOR DIALYSIS PATIEN TS. MACDONALD (test code = TORRES) Newspaper Photographer ID - HUMBLE M Lab Interpretation Abnormal (test code = 80659-1) [facility]OL[facility] [id number] 06:49:00 Test Item Value Reference Range Interpretation [...] S NOT APPLICABLE FOR DIALYSIS PATIEN TS. Newspaper Photographer ID - HUMBLE MPOCT-GLUCOSE [id number] 16:54:00 Test Item Value Reference Range Interpretation Comments POC-GLUCOSE METER 171 mg/dL 70-110 H : [facility] ([facility]) (test code = FORTUNATO Kaba [facility], 1538) [address]: Newspaper Photographer/Techni aldo ID = [id number] for ALBINO GONZALEZ Hemoglobin [id number] 15:22:00 Test Item Value Reference Range Interpretation Comments Hemoglobin A1C (test code = 4548-4) 6.2 % 4.3-6.1 H Lab Interpretation (test code = Abnormal 88646-0) [facility]MO[facility] [id number] 15:22:00 Test Item Value Reference Range Interpretation Comments HEMOGLOBIN A1C ([place]) (test code = 6.2 % 4.3-6.1 H 368) POCT-GLUCOSE [id number] 12:56:00 Test Item Value Reference Range Interpretation Comments POC-GLUCOSE METER 93 mg/dL 70-110 : Notified RN/MD: TESTED (LIA) (test code = AT [facility] [address]) [facility], 770 30: Newspaper Photographer/Techni aldo ID = [id number] for Simm vita, Arely [place], [id number] 12:02:00Reason for exam:->ERCP tomorrow [facility] : 1950 Sex: FFluoroscopic unit utilized for a procedure performed in the OR. No interpretation was requested. Refer to the operative report for findings. Refer to PACS for patient radiation dose information.FL Endoscopic Retrograde [id number] 12:02:00Interface, External Ris In - 03/10/2021 12:18 PM CDTFluoroscopic unit utilized for a procedure performed in the OR. No interpretation was requested. Refer to the operative report for findings. Referto PACS for patient radiation dose information.[facility]SE [id number] 09:27:00 Test Item Value Reference Range Interpretation Comments POC-GLUCOSE METER 74 mg/dL 70-110 : TESTED A T [facility] [address] (BEAKER) (test code = [place], 1538) [address]: Newspaper Photographer/Techni aldo ID = [id number] for ALBINO ROSS COMPREHENSIVE METABOLIC [id number] 05:49:00 Test Item Value Reference Range Interpretation [...] S NOT APPLICABLE FOR DIALYSIS PATIEN TS. Newspaper Photographer ID - HUMBLE MC (Hemogram only)2021-03-10 05:10:00 Test Item Value Reference Range Interpretation Comments WBC (test code = 6690-2) 9.1 See_Comment [A utomated message] The system [id number] generated this result transmitted ref erence range: 3.5 - 10 .5 K/L. The refe rence range was not u sed to interpret this result as normal/abnor mal. RBC (test code = 789-8) 3.57 See_Comment L [Au tomated message] The system [id number] generated this result transmitted ref erence range: 3.93 - 5 .22 M/L. The refe rence range was not u sed to interpret this result as normal/abnor mal. MCHC (test code = 786-4) 30.9 See_Comment L [A utomated message] The system [id number] generated this result transmitted ref erence range: [...] code = 278 See_Comment [Aut omated message] 357-3) The system UYA100 generated this result transmitted ref erence range: 150 - 45 0 K/CU MM. The referen ce range was not u sed to interpret this result as normal/abnor mal. MPV (test code = 9.3 fL 9.4-12.3 L 69163-8) nRBC (test code = 413) 0 See_Comment [Aut omated message] The system [id number] generated this result transmitted ref erence range: 0 - 0 /1 00 WBC. The refere nce range was not u sed to interpret this result as normal/abnor mal. Lab Interpretation (test Abnormal code = 35642-8) [facility] (HEMOGRAM ONLY)2021-03-10 05:10:00 Test Item Value Reference [...] 0-0 (BEAKER) (test code = 413) POCT-GLUCOSE [id number] 00:05:00 Test Item Value Reference Range Interpretation Comments POC-GLUCOSE METER 83 mg/dL 70-110 : TESTED A T [facility] [address] (BEAKER) (test code = [place], 1538) [address]: Newspaper Photographer/Techni aldo ID = [id number] for BRENDA VENCES SARS-CoV2/RT-PCR (Asymptomatic ONLY)2021-03-09 23:58:00 Test Item Value Reference Range Interpretation Comments SARS-COV2/RT-PCR Negative Not Detected, (test code = Negative, See 43288-8) external report for linked test SARS-COV-2 [facility] (test code = 44921-7) TORRES (test code = Negative result for [...] of the Act. Fact Sheet for Healthcare Providers:https://www.ZeroVM.Wirescan/sites/default/f chance/product/documents/F act_Sheet_HC_Providers_L jbr_SLKE-CiQ-7.pdf Fact Sheet for Healthcare Patients:https://www.Calligo.com/sites/default/fi les/product/documents/Fa ct_Sheet_Patients_Lyra_S ARS-CoV-2.pdf Performing Laboratory:[facility] [place] [address] [facility] ([facility] & REF LABS)2021-03-09 23:58:00 Test Item Value Reference Range Interpretation Comments SARS-COV2/RT-PCR (test Negative Not Detected, Negative, code = 0536545) See external report for linked test SARS-COV-2 PERFORMING LAB [facility] SHIV (test code = 3585203) Negative result for this test determines that [...] 564(g) of the Act.Fact Sheet for Healthcare Providers:https://www.Appiterate.Wirescan/sites/default/files/product/documents/Fact_Shee r_NX_Hqntjtjdl_Cowk_OSYS-HtO-9.pdfFact Sheet for Healthcare Patients:https://www.Appiterate.Wirescan/sites/default/files/product/ documents/Kwpd_Ptkuv_Nezcwetm_Acsp_GNBM-VcN-4.pdfPerforming Laboratory:[facility], [place] [address]OLKZ-KUTLMOW METER 2021-03-09 17:34:00 Test Item Value Reference Range Interpretation Comments POC-GLUCOSE METER 97 mg/dL 70-110 : TESTED A T [facility] [address] (BEAKER) (test code = [place], 1538) [address]: Newspaper Photographer/Techni aldo ID = [id number] for ALBINO ROSS MR, ABDOMEN, [id number] 17:11:00Unlisted Reason for Exam - Click Yes and Enter Reason Below->NoPatient with hyperdense material seen in distal CBD on CTA performed in [facility] : 1950 Sex: FFINAL REPORT [...] Aly Verified Date/Time: 03/09/2021 17:11:18 Reading Location: [address] Transitional Reading Room MR abdomen without IV contrast [id number] 17:11:00 Interface, External Ris In - 03/09/2021 [...] MDReport Verified Date/Time: 03/09/2021 17:11:18 Reading Location: [address] Transitional Reading [facility] [id number] 12:41:00 Test Item Value Reference Range Interpretation Comments POC-GLUCOSE METER 92 mg/dL 70-110 : TESTED A T [facility] [address] (BEAKER) (test code = [place], 1538) [address]: Newspaper Photographer/Techni aldo ID = [id number] for PARESH NO ALBINO Urinalysis w/Microscopic + Reflex to [id number] 11:21:00 Test Item Value Reference Range Interpretation Comments Color, UA (test code Light Yellow = 5778-6) Clarity, UA (test Clear code = 5767-9) Specific Dixon, UA 1.033 1.001-1.035 (test code = 5811-5) pH, UA (test code = 5.5 5.0-8.0 5803-2) Protein, UA (test Negative Negative code = 83171-3) Glucose, UA (test Negative Negative code = 365) Ketones, UA (test Negative Negative code = 2514-8) Bilirubin, UA (test Negative Negative code = 60203-8) Blood, UA (test code Trace Negative A = 93499-5) Nitrite, UA (test Negative Negative code = 5802-4) Leukocytes, UA (test Negative Negative code = 5799-2) Urobilinogen, UA 0.2 mg/dL 0.2-1 (test code = 21291-5) RBC, UA (test code = 2 See_Comment [Autom ated 03193-3) message] The system which generated this result [...] Bacteria, UA (test None Seen code = 26491-9) Mucus (test code = Rare 8247-9) Squam Epithel, UA 1 See_Comment [Automate d (test code = 05640-3) messag e] The system which generated this result transmit leonidas reference range : /HPF. The reference range was not used to interpret this result as normal/abnormal . Crystals, Urine (test None Seen code = 92600-8) Specimen Source (test code = 2795) TORRES (test code = TORRES) Newspaper Photographer ID - [auto]Newspaper Photographer ID - tech Lab Interpretation Abnormal (test code = 46693-0) [facility]/ REFLEX URINE [id number] 11:21:00 Test Item Value Reference Range Interpretation [...] = 1521) SOURCE(BEAKER) (test code = 2795) Newspaper Photographer ID - [auto]Newspaper Photographer ID - techHEMOGLOBIN [id number] 10:22:00 Test Item Value Reference Range Interpretation Comments HEMOGLOBIN A1C (BEAKER) (test code = 6.1 % 4.3-6.1 368) Basic metabolic [id number] 06:48:00 Test Item Value Reference Range Interpretation Comments Sodium (test code = 141 meq/L 773-055 8501-2) Potassium (test code = 4.2 meq/L 3.5-5.1 2823-3) Chloride (test code = 106 meq/L 98-107 2075-0) CO2 (test code = 25 meq/L 22-29 2028-9) BUN (test code = 16 mg/dL 7-21 3094-0) Creatinine (test code 1.20 mg/dL 0.57-1.25 = 2160-0) Glucose (test code = 88 mg/dL 70-105 2345-7) Calcium (test code = 8.3 mg/dL 8.4-10.2 L 75613-8) EGFR (test code = 44 mL/min/1.73 [place] [address]-0) NOT ACCURATE CREATININE CLEARANCE IN PREDICTING GLOMERULAR FILTRATION RATE . ESTIMATED GFR I S NOT APPLICABLE FOR DIALYSIS PATIENTS. TORRES (test code = TORRES) Newspaper Photographer ID - ELVIN Kiran Lab Interpretation Abnormal (test code = 26426-2) [facility] HospitalHepatic function [id number] 06:48:00 Test Item Value Reference Range Interpretation Comments Protein, Total (test 7.8 See_Comment [Autom ated code = 2885-2) message] The system which generated this result transmit leonidas reference range : 6.0 - 8.3 gm/dL . The reference range was not u sed to interpret th is result as normal/abnormal . Albumin (test code = 4.0 g/dL 3.5-5 60200-6) Total Bilirubin (test 0.3 mg/dL 0.2-1.2 code = 1975-2) Bilirubin, Direct 0.1 mg/dL 0.1-0.5 (test code = 1968-7) Alkaline Phosphatase 53 U/L 40-150 (test code = 6768-6) AST (test code = 29 U/L 5-34 1920-8) ALT (test code = 30 U/L 6-55 1742-6) TORRES (test code = TORRES) Newspaper Photographer ID - ELVIN W Lab Interpretation Normal (test code = 79175-4) [facility] Test Item Value Reference Range Interpretation Comments Magnesium (test code = 2.1 mg/dL 1.6-2.6 01745-5) TORRES (test code = TORRES) Newspaper Photographer ID Carlo Kiran Lab Interpretation (test Normal code = 12408-8) [facility] [id number] 06:48:00 Test Item Value Reference Range Interpretation [...] S NOT APPLICABLE FOR DIALYSIS PATIEN TS. Newspaper Photographer ID Carlo OCONNOR [id number] 06:48:00 Test Item Value Reference Range Interpretation Comments MAGNESIUM (BEAKER) (test code = 2.1 mg/dL 1.6-2.6 627) Newspaper Photographer ID Carlo OCONNOR WHEPATIC FUNCTION [id number] 06:48:00 Test Item Value Reference Range Interpretation [...] (test code = 30 U/L 6-55 347) Newspaper Photographer UNA OCONNOR WProthrombin time/[id number] 06:32:00 Test Item Value Reference Interpretation Comments [...] valves. Lab Interpretation Normal (test code = 96239-4) [facility]/[id number] 06:32:00 Test Item Value Reference Range Interpretation Comments PROTIME (BEAKER) 12.9 seconds 11.9-14.2 (test code = 759) INR (BEAKER) (test 0.99 See_Comment [Automat ed message] code = 370) The system [email or web address] generated this result transmitted ref erence range: [...] See_Comment H [A utomated message] The system [email or web address] generated this result transmitted ref erence range: 3.5 - 10 .5 K/L. The refe rence range was not u sed to interpret this result as normal/abnor mal. RBC (test code = 789-8) 3.74 See_Comment L [Au tomated message] The system [email or web address] generated this result transmitted ref erence range: 3.93 - 5 .22 M/L. The refe rence range was not u sed to interpret this result as normal/abnor mal. MCHC (test code = 786-4) 31.1 See_Comment L [A utomated message] The system [email or web address] generated this result transmitted ref erence range: [...] See_Comment [Aut omated message] 777-3) The system [email or web address] generated this result transmitted ref erence range: 150 - 45 0 K/CU MM. The referen ce range was not u sed to interpret this result as normal/abnor mal. MPV (test code = 9.2 fL 9.4-12.3 L 97906-9) nRBC (test code = 413) 0 See_Comment [Aut omated message] The system [email or web address] generated this result transmitted ref erence range: [...] H [Aut omated message] 670) The system [email or web address] generated this result transmitted ref erence range: 1.56 - 6 .13 K/L. The refe rence range was not u sed to interpret this result as normal/abnor mal. # Lymphs (test code = 2.53 See_Comment [Auto mated message] 414) The system [email or web address] generated this result transmitted ref erence range: 1.18 - 3 .74 K/L. The refe rence range was not u sed to interpret this result as normal/abnor mal. # Monos (test code = 0.62 See_Comment H [Autom ated message] 415) The system [email or web address] generated this result transmitted ref erence range: 0.24 - 0 .36 K/L. The refe rence range was not u sed to interpret this result as normal/abnor mal. # Eos (test code = 416) 0.00 See_Comment L [Au tomated message] The system [email or web address] generated this result transmitted ref erence range: 0.04 - 0 .36 K/L. The refe rence range was not u sed to interpret this result as normal/abnor mal. # Baso (test code = 417) 0.02 See_Comment [A utomated message] The system [email or web address] generated this result transmitted ref erence range: 0.01 - 0 .08 K/L. The refe rence range was not u sed to interpret this result as normal/abnor mal. Immature 0 % 0-1 Granulocytes-Relative (test code = 2801) Lab Interpretation (test Abnormal code = 36958-0) [facility] W/PLT COUNT & AUTO [id number] 06:29:00 Test Item Value Reference Range Interpretation [...] code = 2801) MRI Brain wo contrast [id number] 16:25:00Patient Name: RIYA VERA: 1950. Age: 67 years. Gender: Female.MR: [id number]. Location: [facility]. Provider: Hollie Osorio MD.EXAM: Brain [...] intracranial abnormality. Mild chronicmicroangiopathic ischemic gliosis. SL: [id number] by: Finesse Dias MDDictated Date/time: 0 02/08/18 17:31Electronically Signed by: Finesse Dias MD 02/08/1817:40[facility]wo [facility] [id number] 13:39:00 Test Item Value Reference Range Interpretation Comments Brain w/wo contrast MRI Cancel Reason: Exam (test code = Brain w/wo Replaced contrast MRI) [facility]
[2021-04-05 14:34] LABS: Basophils % 0.2 % (0-1.3); Lymphocytes % 16.1 % (15.3-44.8); MPV 6.8 fL (7.6-11.3)
[2021-04-05 14:37] LABS: Albumin 3.7 g/dL (3.4-5.0); Bilirubin Direct 0.1 mg/dL (0-0.2); Bilirubin Total 0.3 mg/dL (0.2-1.0); Potassium 3.6 mmol/L (3.5-5.1); Protein, Total 8.8 g/dL (6.4-8.2)
[2021-04-05] MEDS ORDERED: NA CHLORIDE 0.9% 1,000 ML ONE (14:44)
[2021-04-05] MEDS ORDERED: LIDOCAINE VISCOUS 2% SOLN 15 ML UDC ONE (14:44)
[2021-04-05] MEDS ORDERED: HYDROMORPHONE HCL 1 MG/ML INJ ONE ×2 (14:44→15:56)
[2021-04-05] MEDS ORDERED: FAMOTIDINE 20 MG/2 ML VIAL IV ONE (14:44)
[2021-04-05] MEDS ORDERED: MAGNES/ALUMIN/SIMET 30ML UCUP ONE (14:44)
[2021-04-05] MEDS ORDERED: ONDANSETRON 4 MG/2 ML VIAL ONE (14:44)
--- NOTE | 2021-04-07 16:34 | EDPHYS ---
Physician Documentation [facility] Name: Alberto Botello Age: 70 yrs Sex: Female : 1950 Arrival Date: 04/05/2021 Time: 13:00 Bed 2 Private MD: Alis Jamison H ED Physician Diego Patterson HPI: 04/05 14:23 This 70 yrs old Female presents to ER via Ambulatory with complaints of Abdominal Pain. ma2 14:23 The patient presents with abdominal pain. Onset: The symptoms/episode began/occurred ma2 gradually, 3 month(s) ago. Associated signs and symptoms: Pertinent negatives: anorexia, constipation, dysuria, fever, shortness of breath, vomiting, vomiting blood. Severity of pain: At its worst the pain was mild in the emergency department the pain is unchanged. The patient has experienced similar episodes in the past, Patient has a chronic upper abdominal pain had a lap kamini cystectomy done 2 weeks ago, I saw her 2 days ago referred to a GI however due to the weekend she did not had opportunity to see GI.. Historical: - Allergies: 13:37 No Known Allergies; ss - PMHx: 13:37 Anxiety; Hypertension; Hepatitis; Diabetes - NIDDM; Osteoporosis; Chronic pain; ss Pancreatitis; - PSHx: 13:37 Cholecystectomy; ss - Immunization history:: Adult Immunizations up to date. - Social history:: Smoking status: Patient denies any tobacco usage or history of. - Family history:: not pertinent. ROS: 14:23 Constitutional: Negative for fever, chills, and weight loss. ma2 14:23 All other systems are negative. Exam: 14:23 Constitutional: This is a well developed, well nourished patient who is awake, alert, ma2 and in no acute distress. Head/Face: Normocephalic, atraumatic. Eyes: Pupils equal round and reactive to light, extra-ocular motions intact. Lids and lashes normal. Conjunctiva and sclera are non-icteric and not injected. Cornea within normal limits. Periorbital areas with no swelling, redness, or edema. ENT: Nares patent. No nasal discharge, no septal abnormalities noted. Tympanic membranes are normal and external auditory canals are clear. Oropharynx with no redness, swelling, or masses, exudates, or evidence of obstruction, uvula midline. Mucous membranes moist. Neck: Trachea midline, no thyromegaly or masses palpated, and no cervical lymphadenopathy. Supple, full range of motion without nuchal rigidity, or vertebral point tenderness. No Meningismus. Chest/axilla: Normal chest wall appearance and motion. Nontender with no deformity. No lesions are appreciated. Cardiovascular: Regular rate and rhythm with a normal S1 and S2. No gallops, murmurs, or rubs. Normal PMI, no JVD. No pulse deficits. Respiratory: Lungs have equal breath sounds bilaterally, clear to auscultation and percussion. No rales, rhonchi or wheezes noted. No increased work of breathing, no retractions or nasal flaring. Abdomen/GI: Soft, non-tender, with normal bowel sounds. No distension or tympany. No guarding or rebound. No evidence of tenderness throughout. Skin: Warm, dry with normal turgor. Normal color with no rashes, no lesions, and no evidence of cellulitis. MS/ Extremity: Pulses equal, no cyanosis. Neurovascular intact. Full, normal range of motion. Neuro: Awake and alert, GCS 15, oriented to person, place, time, and situation. Cranial nerves II-XII grossly intact. Motor strength 5/5 in all extremities. Sensory grossly intact. Cerebellar exam normal. Normal gait. Vital Signs: 13:34 BP 177 / 90; Pulse 91; Resp 16; Temp 98.1(TE); Pulse Ox 100% on R/A; Height 5 ft. 0 in. ss (152.40 cm); Pain 10/10; 15:09 BP 175 / 82; Pulse 88; Resp 15; Pulse Ox 100% ; Pain 4/10; jl7 15:49 BP 173 / 83; Pulse 93; Resp 20; Pulse Ox 100% on R/A; kg MDM: 13:42 Patient medically screened. ma2 14:23 Differential diagnosis: gastritis, Irritable bowel syndrome, urinary tract infection. ma2 15:28 Data reviewed: vital signs, nurses notes. Counseling: I had a detailed discussion with ma2 the patient and/or guardian regarding: the historical points, exam findings, and any diagnostic results supporting the discharge/admit diagnosis, the presence of at least one elevated blood pressure reading (>120/80) during this emergency department visit, the need for outpatient follow up. Response to treatment: the patient's symptoms have markedly improved after treatment. 04/05 13:42 Order name: Basic Metabolic Panel; Complete Time: 14:53 [facility] 04/05 13:42 Order name: CBC with Diff; Complete Time: 14:53 [facility] 04/05 13:42 Order name: Hepatic Function; Complete Time: 14:53 [facility] 04/05 13:42 Order name: Lipase; Complete Time: 14:53 [facility] 04/05 13:42 Order name: IV Saline Lock; Complete Time: 14:15 [facility] 04/05 13:42 Order name: Labs collected and sent; Complete Time: 14:15 ma2 Administered Medications: 14:40 Drug: NS 0.9% 1000 ml Route: IV; Rate: 1 bolus; Site: right forearm; kg 14:40 Drug: GI Cocktail without - (Maalox Suspension 30 ml, Lidocaine Liquid 2 % 15 kg ml) Route: PO; 15:09 Follow up: Response: No adverse reaction; Pain is decreased jl7 14:41 Drug: Pepcid (famotidine) 20 mg Route: IVP; Site: right forearm; kg 15:09 Follow up: Response: No adverse reaction jl7 14:42 Drug: Zofran (Ondansetron) 4 mg Route: IVP; Site: right forearm; kg 15:10 Follow up: Response: No adverse reaction jl7 14:43 Drug: Dilaudid (HYDROmorphone) 1 mg Route: IVP; Site: right forearm; kg 15:08 Follow up: Response: No adverse reaction; Pain is decreased jl7 15:43 Drug: HYDROmorphone 1 mg Route: IVP; Site: right forearm; kg 15:52 Follow up: Response: No adverse reaction; Marked relief of symptoms kg Disposition Summary: 04/05/21 15:28 Discharge Ordered Location: Home ma2 Condition: Stable ma2 Diagnosis - Upper abdominal pain, unspecified ma2 Followup: ma2 - With: Private Physician - When: Tomorrow - Reason: Continuance of care Discharge Instructions: - Discharge Summary Sheet ma2 - Abdominal Pain, Adult, [id number] ma2 Forms: - Medication Reconciliation Form ma2 - Thank You Letter ma2 - Antibiotic Education ma2 - Prescription Opioid Use ma2 Signatures: Dispatcher [employer] EDMS Kerry Lucas RN RN ss Diego Patterson MD MD ma2 Desiree West RN RN kg Jonas Navarro RN jl7 Corrections: (The following items were deleted from the chart) 15:03 13:42 Abdomen Pelvis W Con+CT.RAD.BRZ ordered. EDMS EDMS
--- NOTE | 2021-04-07 16:34 | ER ---
Nurse's Notes [facility] Name: Alberto Botello Age: 70 yrs Sex: Female : 1950 Arrival Date: 04/05/2021 Time: 13:00 Bed 2 Private MD: Alis Jamison H Diagnosis: Upper abdominal pain, unspecified Presentation: 04/05 13:34 Chief complaint: Patient states: abd pain that began 2 days ago. DX with stomach ss inflammation. Coronavirus screen: Client denies travel out of the [place] in the last 14 days. Ebola Screen: Patient denies exposure to infectious person. Patient denies travel to an Ebola-affected area in the 21 days before illness onset. Initial Sepsis Screen: Does the patient meet any 2 criteria? No. Patient's initial sepsis screen is negative. Does the patient have a suspected source of infection? No. Patient's initial sepsis screen is negative. Risk Assessment: Do you want to hurt yourself or someone else? Patient reports no desire to harm self or others. Onset of symptoms was April 03, 2021. 13:34 Method Of Arrival: Ambulatory ss 13:34 Acuity: ART 3 ss Historical: - Allergies: 13:37 No Known Allergies; ss - PMHx: 13:37 Anxiety; Hypertension; Hepatitis; Diabetes - NIDDM; Osteoporosis; Chronic pain; ss Pancreatitis; - PSHx: 13:37 Cholecystectomy; ss - Immunization history:: Adult Immunizations up to date. - Social history:: Smoking status: Patient denies any tobacco usage or history of. - Family history:: not pertinent. Screenin:09 Abuse screen: Denies threats or abuse. Denies injuries from another. Nutritional jl7 screening: No deficits noted. Tuberculosis screening: No symptoms or risk factors identified. Fall Risk IV access (20 points). Total Huffman Fall Scale indicates No Risk (0-24 pts). Assessment: 14:00 General: Appears in no apparent distress. uncomfortable, Behavior is calm, cooperative. jl7 Pain: Complains of pain in left lower quadrant Pain currently is 10 out of 10 on a pain scale. Pain began 2-3 days ago. Is continuous. Neuro: Level of Consciousness is awake, alert, obeys commands, Moves all extremities. Cardiovascular: Patient's skin is warm and dry. Respiratory: Airway is patent Respiratory effort is even, unlabored, Respiratory pattern is regular, symmetrical. GI: Abdomen is round non-distended, . Abdomen is tender to palpation. Derm: Skin is pink, warm \T\ dry. Vital Signs: 13:34 BP 177 / 90; Pulse 91; Resp 16; Temp 98.1(TE); Pulse Ox 100% on R/A; Height 5 ft. 0 in. ss (152.40 cm); Pain 10/10; 15:09 BP 175 / 82; Pulse 88; Resp 15; Pulse Ox 100% ; Pain 4/10; jl7 15:49 BP 173 / 83; Pulse 93; Resp 20; Pulse Ox 100% on R/A; kg ED Course: 11:35 Missed attempt(s): 22 gauge in left forearm. Bleeding controlled, band aid applied, dh3 catheter tip intact. 11:41 Initial lab(s) drawn, by me, sent to lab. Inserted saline lock: 22 gauge in right dh3 forearm, using aseptic technique. Blood collected. 13:00 Patient arrived in ED. ds1 13:00 Alis Jamison DO is Private Physician. ds1 13:37 Triage completed. ss 13:37 Arm band placed on left wrist. ss 13:42 Diego Patterson MD is Attending Physician. ma2 14:16 Jonas Navarro, YOSVANY is Primary Nurse. jl7 15:09 Patient has correct armband on for positive identification. Bed in low position. Call jl7 light in reach. Side rails up X 1. Pulse ox on. NIBP on. Warm blanket given. 15:50 No provider procedures requiring assistance completed. kg 15:51 IV discontinued, intact, bleeding controlled, No redness/swelling at site. Pressure kg dressing applied. Administered Medications: 14:40 Drug: NS 0.9% 1000 ml Route: IV; Rate: 1 bolus; Site: right forearm; kg 14:40 Drug: GI Cocktail without - (Maalox Suspension 30 ml, Lidocaine Liquid 2 % 15 kg ml) Route: PO; 15:09 Follow up: Response: No adverse reaction; Pain is decreased jl7 14:41 Drug: Pepcid (famotidine) 20 mg Route: IVP; Site: right forearm; kg 15:09 Follow up: Response: No adverse reaction jl7 14:42 Drug: Zofran (Ondansetron) 4 mg Route: IVP; Site: right forearm; kg 15:10 Follow up: Response: No adverse reaction jl7 14:43 Drug: Dilaudid (HYDROmorphone) 1 mg Route: IVP; Site: right forearm; kg 15:08 Follow up: Response: No adverse reaction; Pain is decreased jl7 15:43 Drug: HYDROmorphone 1 mg Route: IVP; Site: right forearm; kg 15:52 Follow up: Response: No adverse reaction; Marked relief of symptoms kg Outcome: 15:28 Discharge ordered by MD. lai 15:50 Discharged to home ambulatory. kg 15:50 Condition: improved 15:50 Discharge instructions given to patient, family, Instructed on discharge instructions, follow up and referral plans. Demonstrated understanding of instructions, follow-up care. 16:05 Patient left the ED. iw Signatures: Abigail Silva ds1 Shelia Sawant RN RN iw Kerry Lucas RN RN Jonas Navarro RN RN jl7 Anna Tatum 3 Diego Patterson MD MD ma2 Graham, Kristen, RN RN kg
[2021-04-07] MEDS ORDERED: NA CHLORIDE 0.9% 1,000 ML ONE (18:02)
[2021-04-07] MEDS ORDERED: MORPHINE 4 MG/ML SYR ONE (18:02)
[2021-04-07] MEDS ORDERED: ONDANSETRON 4 MG/2 ML VIAL ONE (18:02)
[2021-04-07 18:56] VITALS: TEMP 98.1; O2SAT 100
[2021-04-07 18:59] VITALS: BP 173/83
== END 2021-04-05 16:05 | disposition home or self-care (01) ==
LOC: ER 12:51
DX: R10.10 Upper abdominal pain, unspecified (principal); Z90.49 Acquired absence of other specified parts of digestive tract; I10 Essential (primary) hypertension
CPT/HCPCS: 85025; 80048; 36415; 80076; 83690; 96375; 96374; 99284; J1170 ×2; J7030; J2405

== ENCOUNTER 2021-04-07 15:35 | Emergency (ER) | payer OTHER ==
--- OUTSIDE RECORDS SUMMARY | 2021-04-07 15:39 | XMS REPORT | Continuity of Care Document ---
:1950 Author Organization [facility] t Address [address] [place] [address] Dr. Briseno. [address] [place] [address] Care Team Providers Name Role Phone Ervin [...] Expiration Date Sour ce Number MEDICAREMEDICARE A [id number] 2021 EDWARD Tian [id number] 00:00:00 - [facility] MEDICAIDMEDICAID OF [id number] 2021 EDWARD Tian [id number] 2020 00:00:00 - [facility] Problems Condition Condition Condition Status Onset Resolution Last Treating Co mments Source Name Details Category Date Date Treatment Clinician Date Abdominal Abdominal Disease Active [facility] R51 - Diagnosis Active 2018-02-24 Mem oria HEADACHE 02-03 07:04:00 l R51 - 00:01: Sherif HEADACHE 00 Active 02/03/2018 OPID Friendswoo d MILD Diagnosis Active 2016-03-23 Mem oria STEATOSIS - 12:46:00 l MILD 12:44: Sherif STEATOSIS 00 Active 03/23/2016 [facility] BDDC - F/U Diagnosis Active 2015-12-16 Memoria 3-28 15:27:00 l BDDC - 00:00: Sherif F/U 00 Active 12/08/2015 [facility] R10.9 - Diagnosis Active 2015-12-11 Me moria UNSPECIFIE 3-24 12:56:00 l D R10.9 - 00:01: Blanchard ABDOMINAL UNSPECIFIE 00 PAIN D ABDOMINAL PAIN Active 12/04/2015 OPID Bivins FOLLOW UP Diagnosis Active 2015-12-16 Memoria 3-18 15:18:00 l FOLLOW 00:00: Sherif UP 00 Active 6 [facility] STOMACH Diagnosis Active 2015-11-24 Me moria PAIN 3-04 13:16:00 l SELF STOMACH 00:00: Sherif REFERRAL PAIN 00 SELF REFERRAL Active 11/14/2015 [facility] Anxiety Problem Active 2018-02-11 Keith cayla (finding) 01:51:21 l Anxiety Blanchard (finding) Active Problem 02/11/2018 [facility], OPID Friendswoo d, OPID Bivins Chronic Problem Active 2018-02-11 Keith cayla hepatitis 01:51:21 l C Chronic Blanchard (disorder) hepatitis C (disorder) Active Problem 02/11/2018 [facility], OPID Friendswoo d, OPID Bivins Depressive Problem Active 2018-02-11 M emoria disorder 01:51:21 l (disorder) Ramiro n Depressive disorder (disorder) Active Problem 02/11/2018 [facility], OPID Friendswmaude miranda, OPID Marko Gallbladde Problem Active 2018-02-11 M emoria r calculus 01:51:21 l (disorder) Ramiro n Nikkye r calculus (disorder) Active Problem 02/11/2018 [facility], OPID Friendskarley d, OPID Bivins MEDICAL Diagnosis Active 2015-12-16 Me moria SERVICES 15:18:00 l NOT MEDICAL Blanchard AVAILABLE SERVICES IN HOME NOT AVAILABLE IN HOME Active [facility] ALCOHOLIC Diagnosis Active 2015-12-16 Memoria FATTY 15:27:00 l LIVER Blanchard ALCOHOLIC FATTY LIVER Active 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 FATTY Diagnosis Active 2016-03-23 Mem oria (CHANGE 12:46:00 l OF) LIVER, FATTY Jeannette nn NOT (CHANGE ELSEWHERE OF) LIVER, C NOT ELSEWHERE C Active [facility] Hypertensi Hypertensi Disease Active C HI [facility] Diabetes Diabetes Disease Active [facility] mellitus mellitus [facility] New onset New onset Problem Active [...] Father Family history of [facility] [place] lung cancer Physicians Social History Social Habit Start Date Stop Date Quantity Comments Source Sex Assigned At [facility] Tobacco use and 2021-03-10 2021-03-10 Never used [facility] - exposure 00:00:00 00:00:00 Medical [place] Alcohol intake 2021-03-10 2021-03-10 Ex-drinker [facility] es - 00:00:00 00:00:00 (finding) [facility] Smoking Status Start Date Stop Date [...] MCG 11:35: mouth Medical capsule 13 daily. [place] alendronate Yes 70mg Take 70 mg [facility] [...] - 25 mg 00:00: Medical tablet 00 [place] Nortriptyli Nortriptyli Yes HOLLIE TAKE 1 Univers ne HCl - 25 ne HCl - 25 5-30 JO M.D. CAPSULE AT ity of MG Oral MG Oral 00:00: BEDTIME. Arnie as Capsule Capsule 00 Physici ans Hemocyte Hemocyte Yes R.N. Unive rs Plus 106-1 Plus 106-1 5-23 ity of MG Oral MG Oral 00:00: [place] Capsule Capsule 00 Physici ans Lisinopril Lisinopril Yes R.N. Q0.5D TAKE 1 Univers 10 MG Oral 10 MG Oral 5-23 TABLET i ty of Tablet Tablet 00:00: TWICE [place] 00 DAILY. Physici ans MetFORMIN MetFORMIN Yes [...] AT ity of Tablet Tablet 00:00: BEDTIME. [place] 00 Physici ans Omeprazole Omeprazole Yes R.N. 1 QD TAKE 1 Univers 40 MG Oral 40 MG Oral 5-23 CAPSULE ity of Capsule Capsule 00:00: DAILY [place] Delayed Delayed 00 Physici Release Release ans [...] microgram l Oral 18:20: = 1 cap, Blanchard Capsule 00 PO, BID, # [Amitiza] 60 tab, 0 Refill(s) linaclotide Yes 145 Memori a 0.145 MG 3-14 microgram l Oral 18:20: = 1 cap, Sherif Capsule 00 PO, [...] Sherif 00 30 tab, 0 Refill(s) Metoclopram Yes [...] tab, PO, l tablet 18:20: Q4H, PRN Blanchard 00 Pain, 0 Refill(s) Vital Signs Vital Name Observation Time Observation Value Comments Source Systolic blood 2021-03-11 189 mm[Hg] [facility] - pressure 08:18:00 [facility] Diastolic blood 2021-03-11 81 mm[Hg] [facility] - pressure 08:18:00 [facility] Heart rate 2021-03-11 66 /min [facility] - 08:18:00 [facility] Body temperature 2021-03-11 36.28 Carolann [facility] - 08:18:00 [facility] Respiratory rate 2021-03-11 18 /min [facility] - 08:18:00 [facility] Oxygen saturation 2021-03-11 94 /min [facility] - in Arterial blood 08:18:00 [facility] nter by Pulse oximetry Body weight 2021-03-10 62.596 kg [facility] - 11:08:00 [facility] BP Systolic 2018-02-01 131 mm[Hg] Location: [facility] 08:36:00 Position: [place] Physician s Sitting BP Diastolic 2018-02-01 78 mm[Hg] Location: [facility] 08:36:00 Position: [place] Physician s Sitting Height 2018-02-01 60 [in_us] [facility] 08:36:00 [place] Physician s Weight 2018-02-01 117 [lb_av] [facility] 08:36:00 [place] Physician s Body Mass Index 2018-02-01 22.85 kg/m2 University o f Calculated 08:36:00 [place] [facility] Heart Rate 2018-02-01 73 /min Location: R [place] of 08:36:00 Brachial [place] Physician s Artery; [...] Performed POCT-GLUCOSE METER 2021-03-11 08:21:00 Jessica Boone [facility] COMPREHENSIVE METABOLIC 2021-03-11 06:09:00 Clive Alfredo [facility] REPORT OF PROCEDURE - 2021-03-10 23:43:51 Allen Chavez [facility] - ENDOSCOPY [facility] POCT-GLUCOSE METER 2021-03-10 16:43:00 Jessica Boone [facility] POCT-GLUCOSE METER 2021-03-10 12:45:00 Berna [facility]oneLTAC, located [facility] [place] ERCP 2021-03-10 12:02:00 Desiree Duggan [facility] ERCP,PAPILLOTOMY 2021-03-10 11:31:00 Santiagovan [facility] PROCEDURE W/ C-ARM 2021-03-10 11:31:00 [facility] ERCP,BALLOON SWEEPING 2021-03-10 11:31:00 Santiagovan [facility] POCT-GLUCOSE METER 2021-03-10 09:07:00 Paolo [facility] CBC (HEMOGRAM ONLY) 2021-03-10 04:50:00 [facility] COMPREHENSIVE METABOLIC 2021-03-10 04:50:00 [facility] HEMOGLOBIN A1C 2021-03-10 04:50:00 [facility] POCT-GLUCOSE METER 2021-03-09 23:54:00 PaoloFormerly [facility] SARS-COV2/RT-PCR ([facility] & 2021-03-09 20:13:00 Desiree Duggan [facility] - REF LABS) [facility] POCT-GLUCOSE METER 2021-03-09 17:22:00 PaoloFormerly [facility] MR ABDOMEN WO CONTRAST 2021-03-09 15:38:00 [facility] POCT-GLUCOSE METER 2021-03-09 12:22:00 [facility] URINALYSIS W/ REFLEX 2021-03-09 10:56:00 [facility] URINE CULTURE [facility] HEPATIC FUNCTION PANEL 2021-03-09 05:25:00 [facility] PROTHROMBIN TIME/INR 2021-03-09 05:25:00 [place] [facility] MAGNESIUM 2021-03-09 05:25:00 [place] [facility] BASIC METABOLIC PANEL 2021-03-09 05:25:00 [place] [facility] (7) [facility] CBC W/PLT COUNT & AUTO 2021-03-09 05:25:00 [place] [facility] S t [facility] HEMOGLOBIN A1C 2021-03-09 05:25:00 [place] [facility] MRI Brain wo contrast 2018-02-08 00:00:00 [facility] [address] Physicians MRI Brain w/wo contrast 2018-02-01 00:00:00 [facility] [address] Physicians Biopsy of liver [facility] Cataract surgery [facility] Colonoscopy [facility] Endoscopy [facility] Hysterectomy [facility] MRI of abdomen [facility] MRI of kidneys [facility] Ultrasound [facility] History of Gallbladder [facility] surgery Physicians Plan of Care Planned Activity Planned Date Details Comments Source Future Scheduled 2021-09-09 Hemoglobin A1c [facility] kes - Test 00:00:00 [facility] (procedure) [code = 69086315] Future Scheduled 2021-05-13 INFLUENZA VACCINE (#1) [facility] Test 00:00:00 [code = INFLUENZA Medical Ce nter VACCINE (#1)] Future Scheduled 2021-03-08 Medicare IPPE (WELCOME [facility] - Test 00:00:00 TO MEDICARE) [code = Medical Center Medicare IPPE (WELCOME TO MEDICARE)] Future Scheduled 2013 PNEUMOCOCCAL 65+ YRS [facility] - Test 00:00:00 (1 of 1 - Medical Center [id number] PCV13) [code = PNEUMOCOCCAL 65+ YRS (1 of 1 - [id number]_[id number] PCV13)] Future Scheduled 1998 SHINGLES VACCINES (1 [...] 00:00:00 examination Medical Center (regime/therapy) [code = 512095627] Future Scheduled 1958 Urine screening for [facility] - Test 00:00:00 protein (procedure) Medical Center [code = 046680755] Future Scheduled [address] [facility] - Test 00:00:00 [facility] breast (procedure) [code = 988728529] Future Scheduled [address] [facility] - Test 00:00:00 malignant neoplasm of [facility] colon (procedure) [code = 276619608] Encounters Start End Encounter Admission Attending Care Care Encounter Source Date/Time Date/Time Type Type Clinicians Facility Department ID 2018-02-08 2018-02-08 Outpatient Jo [id number] 13:20:00 23:59:00 Hollie Jensen [id number] 2018-02-01 2018-02-01 [facility] [id number] 08:00:00 08:00:00 t; HOLLIE OSORIO ity of [place], M.D. [place] M.D. Physici ans 2016-03-23 2016-03-23 Outpatient [facility] [id number] 12:44:00 23:59:00 Eddi Vigil 2016-03-23 2016-03-23 Outpatient [facility] [id number] 11:35:00 23:59:00 Roseanna Vigil 2015-12-16 2015-12-16 Outpatient [facility] [id number] 15:20:00 23:59:00 Tahira Vigil 2015-12-11 2015-12-11 Outpatient Chema RYLEY [facility] [id number] 13:01:00 23:59:00 Atilla 2015-12-02 2015-12-02 Outpatient Chema [facility] [id number] 14:23:00 23:59:00 Atilla 03 2015-11-24 2015-11-24 Outpatient Chema [facility] [id number] 13:06:00 23:59:00 Atilla Results Test Description Test Time Test Comments Results Result Comments Source POC-Glucose meter 2021-03-11 08:41:00 Test Item Value Reference Range Interpretation Comme nts POC-Glucose Meter (test code = 104 mg/dL 70-110 : TESTED AT [facility] [address] [facility] 1538) [facility], [address]: Tangled Yarn Worker/Techni aldo ID = [id number] for HUSSEIN LEMON Lab Interpretation (test code = Normal 45175-2) [facility] [id number] 08:41:00 Test Item Value Reference Range Interpretation Comments POC-GLUCOSE METER 104 mg/dL 70-110 : TESTED A T [facility] [address] (BEAKER) (test code = BERTNE R [facility], 1538) [address]: Tangled Yarn Worker/Techni aldo ID = [id number] for HUSSEIN DAVID Comprehensive metabolic [id number] 06:49:00 Test Item Value Reference Range Interpretation Comments Protein, Total (test 6.8 See_Comment [Autom ated code = 2885-2) message] The system which generated this result transmit leonidas reference range : 6.0 - 8.3 gm/dL . The reference range was not u sed to interpret th is result as normal/abnormal . Albumin (test code = 3.5 g/dL 3.5-5 02076-8) Alkaline Phosphatase 44 U/L 40-150 (test code = 6768-6) Total Bilirubin (test 0.3 mg/dL 0.2-1.2 code = 1975-2) Sodium (test code = 139 meq/L 712-666 2911-2) Potassium (test code 3.8 meq/L 3.5-5.1 = 2823-3) Chloride (test code = 104 meq/L 98-107 2075-0) CO2 (test code = 27 meq/L -29 8-9) BUN (test code = 12 mg/dL 7-21 3094-0) Creatinine (test code 1.05 mg/dL 0.57-1.25 = 2160-0) Glucose (test code = 79 mg/dL 70-105 2345-7) Calcium (test code = 8.4 mg/dL 8.4-10.2 48536-0) AST (test code = 49 U/L 5-34 H 1920-8) ALT (test code = 41 U/L 6-55 1742-6) EGFR (test code = 52 mL/min/1.73 [place] [address]-3) NOT ACCURATE CREATININE CLEARANCE IN PREDICTING GLOMERULAR FILTRATION RATE . ESTIMATED GFR I S NOT APPLICABLE FOR DIALYSIS PATIEN TS. MACDONALD (test code = TORRES) Tangled Yarn Worker ID - HUMBLE M Lab Interpretation Abnormal (test code = 08127-0) [facility] [id number] 06:49:00 Test Item Value Reference Range Interpretation [...] S NOT APPLICABLE FOR DIALYSIS PATIEN TS. Tangled Yarn Worker ID - HUMBLE MPOCT-GLUCOSE [id number] 16:54:00 Test Item Value Reference Range Interpretation Comments POC-GLUCOSE METER 171 mg/dL 70-110 H : [facility] [address] ([facility]) (test code = FORTUNATO Kaba [facility], 1538) [address]: Tangled Yarn Worker/Techni aldo ID = [id number] for ALBINO GONZALEZ Hemoglobin [id number] 15:22:00 Test Item Value Reference Range Interpretation Comments Hemoglobin A1C (test code = 4548-4) 6.2 % 4.3-6.1 H Lab Interpretation (test code = Abnormal 34414-7) [facility] [id number] 15:22:00 Test Item Value Reference Range Interpretation Comments HEMOGLOBIN A1C (CATALINA) (test code = 6.2 % 4.3-6.1 H 368) POCT-GLUCOSE [id number] 12:56:00 Test Item Value Reference Range Interpretation Comments POC-GLUCOSE METER 93 mg/dL 70-110 : Notified RN/MD: TESTED (LIA) (test code = AT [facility] [address]) [facility], [address] 30: Tangled Yarn Worker/Techni aldo ID = [id number] for Simm vita, Arely [place], [id number] 12:02:00Reason for exam:->[facility]CP tomorrow [facility] : 1950 Sex: FFluoroscopic unit utilized for a procedure performed in the OR. No interpretation was requested. Refer to the operative report for findings. Refer to PACS for patient radiation dose information.FL Endoscopic Retrograde [id number] 12:02:00Interface, External Ris In - 03/10/2021 12:18 PM CDTFluoroscopic unit utilized for a procedure performed in the OR. No interpretation was requested. Refer to the operative report for findings. Referto PACS for patient radiation dose information.[facility] [id number] 09:27:00 Test Item Value Reference Range Interpretation Comments POC-GLUCOSE METER 74 mg/dL 70-110 : TESTED A T [facility] [address] (BEAKER) (test code = [place], 1538) [address]: Tangled Yarn Worker/Techni aldo ID = [id number] for ALBINO ROSS COMPREHENSIVE METABOLIC [id number] 05:49:00 Test Item Value Reference Range Interpretation [...] S NOT APPLICABLE FOR DIALYSIS PATIEN TS. Tangled Yarn Worker ID - HUMBLE MC (Hemogram only)2021-03-10 05:10:00 Test Item Value Reference Range Interpretation Comments WBC (test code = 6690-2) 9.1 See_Comment [A utomated message] The system [employer] generated this result transmitted ref erence range: 3.5 - 10 .5 K/L. The refe rence range was not u sed to interpret this result as normal/abnor mal. RBC (test code = 789-8) 3.57 See_Comment L [Au tomated message] The system [employer] generated this result transmitted ref erence range: 3.93 - 5 .22 M/L. The refe rence range was not u sed to interpret this result as normal/abnor mal. MCHC (test code = 786-4) 30.9 See_Comment L [A utomated message] The system [employer] generated this result transmitted ref erence range: [...] code = 278 See_Comment [Aut omated message] 947-3) The system [employer] generated this result transmitted ref erence range: 150 - 45 0 K/CU MM. The referen ce range was not u sed to interpret this result as normal/abnor mal. MPV (test code = 9.3 fL 9.4-12.3 L 93894-3) nRBC (test code = 413) 0 See_Comment [Aut omated message] The system [employer] generated this result transmitted ref erence range: 0 - 0 /1 00 WBC. The refere nce range was not u sed to interpret this result as normal/abnor mal. Lab Interpretation (test Abnormal code = 60084-3) [facility] (HEMOGRAM ONLY)2021-03-10 05:10:00 Test Item Value [...] 0-0 (BEAKER) (test code = 413) POCT-GLUCOSE [id number] 00:05:00 Test Item Value Reference Range Interpretation Comments POC-GLUCOSE METER 83 mg/dL 70-110 : TESTED A T [facility] [address] (BEAKER) (test code = [place], 1538) [address]: Tangled Yarn Worker/Techni aldo ID = [id number] for BRENDA VENCES SARS-CoV2/RT-PCR (Asymptomatic ONLY)2021-03-09 23:58:00 Test Item Value Reference Range Interpretation Comments SARS-COV2/RT-PCR Negative Not Detected, (test code = Negative, See 85562-9) external report for linked test SARS-COV-2 [facility] (test code = 24800-3) TORRES (test code = Negative result for [...] of the Act. Fact Sheet for Healthcare Providers:https://www.Epom.Jayride.com/sites/default/f chance/product/documents/F act_Sheet_HC_Providers_L irx_LUCS-QhJ-9.pdf Fact Sheet for Healthcare Patients:https://www.beBetter Health.com/sites/default/fi les/product/documents/Fa ct_Sheet_Patients_Lyra_S ARS-CoV-2.pdf Performing Laboratory:[facility] [place] [address] [facility] ([facility] REF [facility]S)2021-03-09 23:58:00 Test Item Value Reference Range Interpretation Comments SARS-COV2/RT-PCR (test Negative Not Detected, Negative, code = 0923283) See external report for linked test SARS-COV-2 PERFORMING LAB [facility] SHIV (test code = 6585517) Negative result for this test determines that [...] 564(g) of the Act.Fact Sheet for Healthcare Providers:https://www.Validus.Jayride.com/sites/default/files/product/documents/Fact_Shee e_EV_Uyumuzile_Cidh_KXXU-CmK-5.pdfFact Sheet for Healthcare Patients:https://www.Validus.Jayride.com/sites/default/files/product/ documents/Iopr_Gqwxq_Zgwiztys_Qxqi_CZKO-OwT-6.pdfPerforming Laboratory:[facility], [place] [address]KHRB-NTEHPPV METER 2021-03-09 17:34:00 Test Item Value Reference Range Interpretation Comments POC-GLUCOSE METER 97 mg/dL 70-110 : TESTED A T [facility] [address] (BEAKER) (test code = FOR[place]ATO Kaba [place], 1538) [address]: Tangled Yarn Worker/Techni aldo ID = [id number] for ALBINO ROSS MR, ABDOMEN, [id number] 17:11:00Unlisted Reason for Exam - Click Yes and Enter Reason Below->NoPatient with hyperdense material seen in distal CBD on CTA performed in [facility] 1950 Sex: FFINAL REPORT [...] Aly Verified Date/Time: 03/09/2021 17:11:18 Reading Location: [address] Transitional Reading Room MR abdomen without IV contrast [id number] 17:11:00 Interface, External Ris In - 03/09/2021 [...] MDReport Verified Date/Time: 03/09/2021 17:11:18 Reading Location: [address] Transitional Reading [facility] [id number] 12:41:00 Test Item Value Reference Range Interpretation Comments POC-GLUCOSE METER 92 mg/dL 70-110 : TESTED A T [facility] [address] (BEAKER) (test code = [place], 1538) [address]: Tangled Yarn Worker/Techni aldo ID = [id number] for PARESH NO ALBINO Urinalysis w/Microscopic + Reflex to [id number] 11:21:00 Test Item Value Reference Range Interpretation Comments Color, UA (test code Light Yellow = 5778-6) Clarity, UA (test Clear code = 5767-9) Specific [place], UA 1.033 1.001-1.035 (test code = 5811-5) pH, UA (test code = 5.5 5.0-8.0 5803-2) Protein, UA (test Negative Negative code = 30049-3) Glucose, UA (test Negative Negative code = 365) Ketones, UA (test Negative Negative code = 2514-8) Bilirubin, UA (test Negative Negative code = 36275-5) Blood, UA (test code Trace Negative A = 30045-5) Nitrite, UA (test Negative Negative code = 5802-4) Leukocytes, UA (test Negative Negative code = 5799-2) Urobilinogen, UA 0.2 mg/dL 0.2-1 (test code = 19544-0) RBC, UA (test code = 2 See_Comment [Autom ated 10792-0) message] The system which generated this result [...] Bacteria, UA (test None Seen code = 00010-8) Mucus (test code = Rare 8247-9) Squam Epithel, UA 1 See_Comment [Automate d (test code = 38942-4) messag e] The system which generated this result transmit leonidas reference range : /HPF. The reference range was not used to interpret this result as normal/abnormal . Crystals, Urine (test None Seen code = 27826-5) Specimen Source (test code = 2795) TORRES (test code = TORRES) Tangled Yarn Worker ID - [auto]Tangled Yarn Worker ID - tech Lab Interpretation Abnormal (test code = 77933-5) [facility]/ REFLEX URINE [id number] 11:21:00 Test Item Value Reference Range Interpretation [...] = 1521) SOURCE(BEAKER) (test code = 2795) Tangled Yarn Worker ID - [auto]Tangled Yarn Worker ID - techHEMOGLOBIN [id number] 10:22:00 Test Item Value Reference Range Interpretation Comments HEMOGLOBIN A1C (BEAKER) (test code = 6.1 % 4.3-6.1 368) Basic metabolic [id number] 06:48:00 Test Item Value Reference Range Interpretation Comments Sodium (test code = 141 meq/L 160-525 8074-2) Potassium (test code = 4.2 meq/L 3.5-5.1 2823-3) Chloride (test code = 106 meq/L 98-107 2075-0) CO2 (test code = 25 meq/L 22-29 2028-9) BUN (test code = 16 mg/dL 7-21 3094-0) Creatinine (test code 1.20 mg/dL 0.57-1.25 = 2160-0) Glucose (test code = 88 mg/dL 70-105 2345-7) Calcium (test code = 8.3 mg/dL 8.4-10.2 L 61793-6) EGFR (test code = 44 mL/min/1.73 [place] [address]-2) NOT ACCURATE CREATININE CLEARANCE IN PREDICTING GLOMERULAR FILTRATION RATE . ESTIMATED GFR I S NOT APPLICABLE FOR DIALYSIS PATIENTS. TORRES (test code = TORRES) Tangled Yarn Worker ID - ELVIN Kiran Lab Interpretation Abnormal (test code = 82473-6) [facility] Hospital[facility]atic function [id number] 06:48:00 Test Item Value Reference Range Interpretation Comments Protein, Total (test 7.8 See_Comment [Autom ated code = 2885-2) message] The system which generated this result transmit leonidas reference range : 6.0 - 8.3 gm/dL . The reference range was not u sed to interpret th is result as normal/abnormal . Albumin (test code = 4.0 g/dL 3.5-5 76654-4) Total Bilirubin (test 0.3 mg/dL 0.2-1.2 code = 1975-2) Bilirubin, Direct 0.1 mg/dL 0.1-0.5 (test code = 1968-7) Alkaline Phosphatase 53 U/L 40-150 (test code = 6768-6) AST (test code = 29 U/L 5-34 1920-8) ALT (test code = 30 U/L 6-55 1742-6) TORRES (test code = TORRES) [employer] Work[employer] ID - ELVIN W Lab Interpretation Normal (test code = 79869-4) [facility] Test Item Value Reference Range Interpretation Comments Magnesium (test code = 2.1 mg/dL 1.6-2.6 90391-9) TORRES (test code = TORRES) [employer] Worker ID Carlo Kiran Lab Interpretation (test Normal code = 85978-0) [facility] [id number] 06:48:00 Test Item Value Reference Range Interpretation [...] S NOT APPLICABLE FOR DIALYSIS PATIEN TS. [employer] Worker ID Carlo OCONNOR [id number] 06:48:00 Test Item Value Reference Range Interpretation Comments MAGNESIUM (BEAKER) (test code = 2.1 mg/dL 1.6-2.6 627) [employer] Worker ID Carlo OCONNOR WHEPATIC FUNCTION [id number] 06:48:00 Test Item Value Reference Range Interpretation [...] (test code = 30 U/L 6-55 347) [employer] UNA OCONNOR WProthrombin time/[id number] 06:32:00 Test Item Value Reference Interpretation Comments [...] valves. Lab Interpretation Normal (test code = 85501-4) [facility]/[id number] 06:32:00 Test Item Value Reference Range Interpretation Comments PROTIME (BEAKER) 12.9 seconds 11.9-14.2 (test code = 759) INR (BEAKER) (test 0.99 See_Comment [Automat ed message] code = 370) The system [employer] generated this result transmitted ref erence range: [...] See_Comment H [A utomated message] The system [employer] generated this result transmitted ref erence range: 3.5 - 10 .5 K/L. The refe rence range was not u sed to interpret this result as normal/abnor mal. RBC (test code = 789-8) 3.74 See_Comment L [Au tomated message] The system [employer] generated this result transmitted ref erence range: 3.93 - 5 .22 M/L. The refe rence range was not u sed to interpret this result as normal/abnor mal. MCHC (test code = 786-4) 31.1 See_Comment L [A utomated message] The system [employer] generated this result transmitted ref erence range: [...] See_Comment [Aut omated message] 777-3) The system [employer] generated this result transmitted ref erence range: 150 - 45 0 K/CU MM. The referen ce range was not u sed to interpret this result as normal/abnor mal. MPV (test code = 9.2 fL 9.4-12.3 L 99196-5) nRBC (test code = 413) 0 See_Comment [Aut omated message] The system [employer] generated this result transmitted ref erence range: [...] H [Aut omated message] 670) The system [employer] generated this result transmitted ref erence range: 1.56 - 6 .13 K/L. The refe rence range was not u sed to interpret this result as normal/abnor mal. # Lymphs (test code = 2.53 See_Comment [Auto mated message] 414) The system [employer] generated this result transmitted ref erence range: 1.18 - 3 .74 K/L. The refe rence range was not u sed to interpret this result as normal/abnor mal. # Monos (test code = 0.62 See_Comment H [Autom ated message] 415) The system [employer] generated this result transmitted ref erence range: 0.24 - 0 .36 K/L. The refe rence range was not u sed to interpret this result as normal/abnor mal. # Eos (test code = 416) 0.00 See_Comment L [Au tomated message] The system [employer] generated this result transmitted ref erence range: 0.04 - 0 .36 K/L. The refe rence range was not u sed to interpret this result as normal/abnor mal. # Baso (test code = 417) 0.02 See_Comment [A utomated message] The system [employer] generated this result transmitted ref erence range: 0.01 - 0 .08 K/L. The refe rence range was not u sed to interpret this result as normal/abnor mal. Immature 0 % 0-1 Granulocytes-Relative (test code = 2801) Lab Interpretation (test Abnormal code = 19711-5) [facility] W/PLT COUNT & AUTO [id number] 06:29:00 Test Item Value Reference Range Interpretation [...] code = 2801) MRI Brain wo contrast [id number] 16:25:00Patient Name: RIYA VERA: 1950. Age: 67 years. Gender: Female.MR: [id number]. Location: [facility]. Provider: Hollie Osorio MD.EXAM: Brain wo [...] intracranial abnormality. Mild chronicmicroangiopathic ischemic gliosis. SL: [id number] by: Finesse Dias MDDictated Date/time: 0 02/08/18 17:31Electronically Signed by: Finesse Dias MD 02/08/1817:40[facility] Brain [facility]wo contrast [id number] 13:39:00 Test Item Value Reference Range Interpretation Comments Brain w/wo contrast MRI Cancel Reason: Exam (test code = Brain w/wo Replaced contrast MRI) [facility]
[2021-04-07] MEDS ORDERED: FENTANYL CITR 100 MCG/2 ML ONE (19:00)
[2021-04-07 19:26] LABS: Absolute Lymphocytes (CBC) 2.5 K/uL (0.7-4.9); Basophils % 0.3 % (0-1.3); Hematocrit 34.3 % (36.0-45.0); MPV 6.9 fL (7.6-11.3); RBC Red Blood Cell Count 3.85 M/uL (3.86-4.86)
[2021-04-07 19:40] LABS: ALT/SGPT 98 U/L (12-78); AST/SGOT 46 U/L (15-37); Albumin 3.7 g/dL (3.4-5.0); Alkaline Phosphatase 59 U/L (45-117); BUN Blood Urea Nitrogen 16 mg/dL (7-18); Bicarbonate 19 mmol/L (21-32); Bilirubin Direct < 0.1 mg/dL (0-0.2); Bilirubin Total 0.2 mg/dL (0.2-1.0); Glucose Level 102 mg/dL (74-106); Lipase 277 U/L (73-393); Potassium 3.4 mmol/L (3.5-5.1); Protein, Total 8.9 g/dL (6.4-8.2); Sodium Level 143 mmol/L (136-145); Troponin (Emerg Dept Use Only) < 0.02 ng/mL (0.0-0.045)
[2021-04-07] MEDS ORDERED: METOCLOPRAMIDE 10 MG/2mL INJ ONE (19:53)
[2021-04-07] MEDS ORDERED: LORazepam 2 MG/ML VIAL ONE (19:54)
[2021-04-07] MEDS ORDERED: DIPHENHYDRAMINE 50 MG/ML VIAL ONE (19:54)
[2021-04-07] MEDS ORDERED: FAMOTIDINE 20 MG/2 ML VIAL IV ONE (19:55)
[2021-04-07] MEDS ORDERED: NA CHLORIDE 0.9% 500 ML ONE (19:57)
[2021-04-07] MEDS ORDERED: HYDROMORPHONE HCL 2 MG/ML inj ONE ×2 (20:37→21:33)
--- NOTE | 2021-04-07 20:55 | RAD REPORT ---
EXAM DESCRIPTION: CTAbdomen Pelvis W Contrast - 04/07/2021 8:42 pm CLINICAL HISTORY: Abdominal pain. abdominal pain COMPARISON: Abdomen Pelvis W Contrast dated 09/17/2019; Abdomen Pelvis W Contrast dated 06/06/2019; Abdomen Pelvis W Contrast dated 12/13/2018; Abdomen Pelvis W Contrast dated 06/13/2018 TECHNIQUE: Biphasic CT imaging of the abdomen and pelvis was performed with 100 ml non-ionic IV cont rast. All CT scans are performed using dose optimization technique as appropriate and may include automated exposure control or mA/KV adjustment according to patient size. FINDINGS: The lung bases are clear.Small hiatal hernia. Cholecystectomy with moderate pneumobilia. No pathologic liver abnormality. The spleen, pancreas adre nal glands and kidneys are within normal limits. No bowel obstruction, free air, free fluid or abscess. The appendix is not identified as a discrete structure, however, no secondary findings of appendicitis are identified. No evidence of significan t lymphadenopathy. Mild to moderate lumbosacral degenerative changes. IMPRESSION: No acute intra-abdominal or pelvic finding.
--- NOTE | 2021-04-07 21:32 | EDPHYS ---
Physician Documentation [facility] Name: Alberto Botello Age: 70 yrs Sex: Female : 1950 Arrival Date: 04/07/2021 Time: 15:35 Bed 26 Private MD: Alis Jamison H ED Physician Xavi Ko HPI: 04/07 17:18 This 70 yrs old Female presents to ER via Ambulatory with complaints of Abdominal Pain. jmm 17:18 The patient presents with abdominal pain. Onset: The symptoms/episode began/occurred 3 jmm day(s) ago. The symptoms do not radiate. Associated signs and symptoms: Pertinent negatives: dysuria, fever, hematuria, shortness of breath, vomiting, vomiting blood. The symptoms are described as achy. This is a 70-year-old female with history of chronic pain, diabetes mellitus, hepatitis, hypertension that presents emerged department with complaints of epigastric pain this pain has been ongoing for approximately 3 days. Patient was seen in the ED approximately 2 days ago. Patient was evaluated by her rn transport yesterday and prescribed a PPI. Patient continues to have pain and advised by her rn transport to go to the ED for reevaluation.. Historical: - Allergies: 15:47 No Known Allergies; kg - PMHx: 15:47 Anxiety; Chronic pain; Diabetes - NIDDM; Hepatitis; Hypertension; Osteoporosis; kg Pancreatitis; - PSHx: 15:47 Cholecystectomy; kg - Immunization history:: Adult Immunizations up to date, Client reports receiving the 2nd dose of the Covid vaccine. - Social history:: Smoking status: Patient denies any tobacco usage or history of. ROS: 17:18 Constitutional: Negative for fever, chills, and weight loss, Cardiovascular: Negative jmm for chest pain, palpitations, and edema, Respiratory: Negative for shortness of breath, cough, wheezing, and pleuritic chest pain. 17:18 Abdomen/GI: Positive for abdominal pain. 17:18 All other systems are negative. Exam: 17:18 Constitutional: This is a well developed, well nourished patient who is awake, alert, jmm and in no acute distress. Head/Face: atraumatic. Eyes: EOMI, no conjunctival erythema appreciated ENT: Moist Mucus Membranes Neck: Trachea midline, Supple Chest/axilla: Normal chest wall appearance and motion. Cardiovascular: Regular rate and rhythm. No edema appreciated Respiratory: Normal respirations, no respiratory distress appreciated 17:18 Back: Normal ROM Skin: General appearance color normal MS/ Extremity: Moves all extremities, no obvious deformities appreciated, no edema noted to the lower extremities Neuro: Awake and alert, normal gait Psych: Behavior is normal, Mood is normal, Patient is cooperative and pleasant 17:18 Abdomen/GI: Inspection: abdomen appears normal, Bowel sounds: normal, Palpation: soft, mild abdominal tenderness, in the left upper quadrant. Vital Signs: 15:43 BP 154 / 88; Pulse 93; Resp 20; Temp 98.2; Pulse Ox 99% on R/A; Weight 60.1 kg; Height kg 5 ft. 0 in. (152.40 cm); Pain 10/10; 17:37 BP 150 / 86; Pulse 89; Resp 18; Pulse Ox 100% on R/A; ld1 19:21 BP 156 / 84; Pulse 92; Resp 20; Pulse Ox 100% on R/A; ld1 20:30 BP 136 / 64; Pulse 84; Resp 18; Pulse Ox 98% on R/A; ld1 21:44 BP 142 / 66; Pulse 82; Resp 18; Pulse Ox 99% on R/A; ld1 15:43 Body Mass Index 25.88 (60.10 kg, 152.40 cm) kg MDM: 17:37 Patient medically screened. [facility] 21:27 Data reviewed: vital signs, nurses notes. Counseling: I had a detailed discussion with carri the patient and/or guardian regarding: the historical points, exam findings, and any diagnostic results supporting the discharge/admit diagnosis, radiology results, the need for outpatient follow up, to return to the emergency department if symptoms worsen or persist or if there are any questions or concerns that arise at home. 21:59 ED course: I discussed labs with gastroenterology. Will follow up with the patient carri tomorrow for reevaluation. I discussed this with the family and gave them strict return precautions. Patient, family understood and agrees with plan of care.. 04/07 17:18 Order name: Basic Metabolic Panel; Complete Time: 19:52 [facility] 04/07 17:18 Order name: CBC with Diff; Complete Time: 19:28 [facility] 04/07 17:18 Order name: Hepatic Function; Complete Time: 19:52 [facility] 04/07 17:18 Order name: Lipase; Complete Time: 19:52 [facility] 04/07 17:18 Order name: Troponin (emerg Dept Use Only); Complete Time: 19:52 [facility] 04/07 20:13 Order name: CT Abd/Pelvis - IV Contrast Only; Complete Time: 20:56 [facility] 04/07 17:18 Order name: IV Saline Lock; Complete Time: 18:32 [facility] 04/07 17:18 Order name: Labs collected and sent; Complete Time: 19:36 [facility] 04/07 17:18 Order name: EKG - Nurse/Tech; Complete Time: 18:32 jm Administered Medications: 18:00 Drug: morphine 4 mg Route: IVP; Site: right wrist; ld1 19:20 Follow up: Response: No adverse reaction ld1 18:00 Drug: Zofran (Ondansetron) 4 mg Route: IVP; Site: right wrist; ld1 19:20 Follow up: Response: No adverse reaction ld1 18:32 Drug: NS 0.9% 1000 ml Route: IV; Rate: 1 bolus; Site: right wrist; ld1 19:21 Follow up: Response: No adverse reaction; IV Status: Completed infusion; IV Intake: ld1 1000ml 18:40 Drug: fentaNYL (PF) 50 mcg Route: IVP; Site: right antecubital; ld1 19:20 Follow up: Response: No adverse reaction ld1 19:35 Drug: Ativan (LORazepam) 1 mg Route: IVP; Site: right antecubital; ld1 21:09 Follow up: Response: No adverse reaction ld1 19:36 Drug: Pepcid (famotidine) 20 mg Route: IVP; Site: right antecubital; ld1 21:08 Follow up: Response: No adverse reaction ld1 19:36 Drug: Reglan (metoCLOPramide) 10 mg Route: IVP; Site: right antecubital; ld1 21:08 Follow up: Response: No adverse reaction ld1 19:36 Drug: diphenhydrAMINE 12.5 mg Route: IVP; Site: right antecubital; ld1 21:08 Follow up: Response: No adverse reaction ld1 20:25 Drug: Dilaudid (HYDROmorphone) 1 mg Route: IVP; Site: right antecubital; bs2 20:40 Follow up: Response: No adverse reaction ld1 21:13 Drug: Dilaudid (HYDROmorphone) 1 mg Route: IVP; Site: right antecubital; ld1 21:19 Follow up: Response: No adverse reaction ld1 21:19 Not Given (Duplicate Order): Dilaudid (HYDROmorphone) 1 mg IVP once; RASS on ADMIN: ld1 Combtv4, Very Agttd3, Agttd2, Rstlss1, AlertClm0, Drwsy-1, Lt Sdtn-2, Mod Sdtn-3, Dp Sdtn-4, UnArsble-5 Disposition: 04/08 07:36 Co-signature as Attending Physician, Xavi Ko MD. rn Disposition Summary: 04/07/21 21:31 Discharge Ordered Location: Home [facility] Condition: Stable [facility] Diagnosis - Other abdominal pain [facility] Followup: [facility] - With: Miguel Larson MD - When: 1 - 2 days - Reason: Recheck today's complaints, Continuance of care, Re-evaluation by your physician Discharge Instructions: - Discharge Summary Sheet [facility] Forms: - Medication Reconciliation Form [facility] - Thank You Letter [facility] - Antibiotic Education [facility] - Prescription Opioid Use [facility] Prescriptions: - sucralfate 1 gram Oral tablet - take 1 tablet by ORAL route 4 times per day on an empty stomach 1 hour before [facility] meals and at bedtime; 30 tablet; Refills: 0, Product Selection Permitted - Reglan 10 mg Oral Tablet - take 1 tablet by ORAL route every 6 hours take 30 minutes before meals and at [facility] bedtime; 20 tablet; Refills: 0, Product Selection Permitted Signatures: Dispatcher [employer] EDSteven Benson PA PA [facility] Xavi Ko MD MD rn Dibbern, Lauren, RN RN ld1 Desiree West RN RN kg Emily Singh RN RN bs2
--- NOTE | 2021-04-07 21:32 | ER ---
Nurse's Notes [facility] Name: Alberto Botello Age: 70 yrs Sex: Female : 1950 Arrival Date: 04/07/2021 Time: 15:35 Bed 26 Private MD: Alis Jamison H Diagnosis: Other abdominal pain Presentation: 04/07 15:43 Chief complaint: Patient states: Abdominal and back pain starting yesterday but worse kg today. Denies fever, vomiting, diarrhea. Coronavirus screen: Client denies travel out of the [place] in the last 14 days. At this time, unable to obtain information related to travel outside the [place] At this time, the client does not indicate any symptoms associated with coronavirus-19. Ebola Screen: Patient negative for fever greater than or equal to 101.5 degrees Fahrenheit, and additional compatible Ebola Virus Disease symptoms Patient denies exposure to infectious person. Patient denies travel to an Ebola-affected area in the 21 days before illness onset. Initial Sepsis Screen: Does the patient meet any 2 criteria? No. Patient's initial sepsis screen is negative. Does the patient have a suspected source of infection? No. Patient's initial sepsis screen is negative. Risk Assessment: Do you want to hurt yourself or someone else? Patient reports no desire to harm self or others. Onset of symptoms was April 06, 2021. 15:43 Method Of Arrival: Ambulatory kg 15:43 Acuity: ART 3 kg Triage Assessment: 15:47 General: Appears uncomfortable, Behavior is calm, cooperative, appropriate for age, kg quiet. Pain: Complains of pain in left upper quadrant and left lower quadrant Pain radiates to left low back and left mid back Pain currently is 10 out of 10 on a pain scale. at worst was 10 out of 10 on a pain scale. level that patient reports is acceptable is 5 out of 10 on a pain scale. Quality of pain is described as Pt states, "It feels like something is biting me on the inside". GI: Reports lower abdominal pain, upper abdominal pain. Historical: - Allergies: 15:47 No Known Allergies; kg - PMHx: 15:47 Anxiety; Chronic pain; Diabetes - NIDDM; Hepatitis; Hypertension; Osteoporosis; kg Pancreatitis; - PSHx: 15:47 Cholecystectomy; kg - Immunization history:: Adult Immunizations up to date, Client reports receiving the 2nd dose of the Covid vaccine. - Social history:: Smoking status: Patient denies any tobacco usage or history of. Screenin:48 Abuse screen: Denies threats or abuse. Denies injuries from another. Nutritional kg screening: No deficits noted. Tuberculosis screening: No symptoms or risk factors identified. Fall Risk None identified. No fall in past 12 months (0 pts). No secondary diagnosis (0 pts). No IV (0 pts). Ambulatory Aid- Crutches/Cane/Walker (15 pts). Gait- Normal/Bed Rest/Wheelchair (0 pts) Mental Status- Oriented to own ability (0 pts). Total Huffman Fall Scale indicates No Risk (0-24 pts). Assessment: 17:37 General: Appears in no apparent distress. uncomfortable, Behavior is calm, cooperative, ld1 appropriate for age. Pain: Complains of pain in abdomen Pain does not radiate. Pain currently is 8 out of 10 on a pain scale. Quality of pain is described as burning, throbbing, Pain began 2-3 days ago. Is continuous. Neuro: Level of Consciousness is awake, alert, obeys commands, Oriented to person, place, time, situation. Cardiovascular: Capillary refill < 3 seconds Patient's skin is warm and dry. Respiratory: Airway is patent Respiratory effort is even, unlabored, Respiratory pattern is regular, symmetrical. GI: Abdomen is round non-distended, Bowel sounds present X 4 quads. Abd is soft Abdomen is tender to palpation X 4 quads. : No signs and/or symptoms were reported regarding the genitourinary system. EENT: No signs and/or symptoms were reported regarding the EENT system. Derm: No signs and/or symptoms reported regarding the dermatologic system. Musculoskeletal: No signs and/or symptoms reported regarding the musculoskeletal system. 19:21 Reassessment: Patient appears in no apparent distress at this time. No changes from ld1 previously documented assessment. Pt continuously c/o abdominal pain. Notified ERP. See MAR for orders. 21:01 Reassessment: Patient appears in no apparent distress at this time. No changes from ld1 previously documented assessment. Patient and/or family updated on plan of care and expected duration. Pain level reassessed. Patient is alert, oriented x 3, equal unlabored respirations, skin warm/dry/pink. 21:44 Reassessment: Patient appears in no apparent distress at this time. No changes from ld1 previously documented assessment. Patient and/or family updated on plan of care and expected duration. Pain level reassessed. Patient is alert, oriented x 3, equal unlabored respirations, skin warm/dry/pink. Vital Signs: 15:43 BP 154 / 88; Pulse 93; Resp 20; Temp 98.2; Pulse Ox 99% on R/A; Weight 60.1 kg; Height kg 5 ft. 0 in. (152.40 cm); Pain 10/10; 17:37 BP 150 / 86; Pulse 89; Resp 18; Pulse Ox 100% on R/A; ld1 19:21 BP 156 / 84; Pulse 92; Resp 20; Pulse Ox 100% on R/A; ld1 20:30 BP 136 / 64; Pulse 84; Resp 18; Pulse Ox 98% on R/A; ld1 21:44 BP 142 / 66; Pulse 82; Resp 18; Pulse Ox 99% on R/A; ld1 15:43 Body Mass Index 25.88 (60.10 kg, 152.40 cm) kg ED Course: 15:35 Patient arrived in ED. am2 15:35 Alis Jamison DO is Private Physician. am2 15:47 Triage completed. kg 15:48 Patient has correct armband on for positive identification. kg 17:17 Steven Shea PA is PHCP. jmm 17:17 Xavi Ko MD is Attending Physician. jmm 17:37 Jenifer Hernandez, YOSVANY is Primary Nurse. ld1 20:42 CT Abd/Pelvis - IV Contrast Only In Process Unspecified. EDMS 21:31 Miguel Larson MD is Referral Physician. jmm 21:45 Arm band placed on right wrist. ld1 21:45 No provider procedures requiring assistance completed. IV discontinued, intact, ld1 bleeding controlled, No redness/swelling at site. Administered Medications: 18:00 Drug: morphine 4 mg Route: IVP; Site: right wrist; ld1 19:20 Follow up: Response: No adverse reaction ld1 18:00 Drug: Zofran (Ondansetron) 4 mg Route: IVP; Site: right wrist; ld1 19:20 Follow up: Response: No adverse reaction ld1 18:32 Drug: NS 0.9% 1000 ml Route: IV; Rate: 1 bolus; Site: right wrist; ld1 19:21 Follow up: Response: No adverse reaction; IV Status: Completed infusion; IV Intake: ld1 1000ml 18:40 Drug: fentaNYL (PF) 50 mcg Route: IVP; Site: right antecubital; ld1 19:20 Follow up: Response: No adverse reaction ld1 19:35 Drug: Ativan (LORazepam) 1 mg Route: IVP; Site: right antecubital; ld1 21:09 Follow up: Response: No adverse reaction ld1 19:36 Drug: Pepcid (famotidine) 20 mg Route: IVP; Site: right antecubital; ld1 21:08 Follow up: Response: No adverse reaction ld1 19:36 Drug: Reglan (metoCLOPramide) 10 mg Route: IVP; Site: right antecubital; ld1 21:08 Follow up: Response: No adverse reaction ld1 19:36 Drug: diphenhydrAMINE 12.5 mg Route: IVP; Site: right antecubital; ld1 21:08 Follow up: Response: No adverse reaction ld1 20:25 Drug: Dilaudid (HYDROmorphone) 1 mg Route: IVP; Site: right antecubital; bs2 20:40 Follow up: Response: No adverse reaction ld1 21:13 Drug: Dilaudid (HYDROmorphone) 1 mg Route: IVP; Site: right antecubital; ld1 21:19 Follow up: Response: No adverse reaction ld1 21:19 Not Given (Duplicate Order): Dilaudid (HYDROmorphone) 1 mg IVP once; RASS on ADMIN: ld1 Combtv4, Very Agttd3, Agttd2, Rstlss1, AlertClm0, Drwsy-1, Lt Sdtn-2, Mod Sdtn-3, Dp Sdtn-4, UnArsble-5 Intake: 19:21 IV: 1000ml; Total: 1000ml. ld1 Outcome: 21:31 Discharge ordered by MD. christina 21:45 Discharged to home via wheelchair, with family. ld1 21:45 Condition: stable 21:45 Discharge instructions given to patient, family, Instructed on discharge instructions, follow up and referral plans. medication usage, Demonstrated understanding of instructions, follow-up care, medications. 21:46 Patient left the ED. ld1 Signatures: Dispatcher [employer] EDMS Steven Shea PA PA jmm Moreno, Amanda am2 Jenifer Hernandez RN RN ld1 Desiree West RN RN Emily Chau RN RN bs2
[2021-04-09 03:19] VITALS: BP 142/66; O2SAT 99
[2021-04-09 03:28] VITALS: TEMP 98.2
--- NOTE | 2021-04-09 07:33 | EKG ---
Test Date: 2021-04-07 Test Time: 18:10:26 Radon Inspector: ESTER MEASUREMENT RESULTS: Intervals: Rate: 87 NV: 134 QRSD: 82 QT: 384 QTc: 462 Bittinger: P: 74 NV: 134 QRS: 44 T: 51 INTERPRETIVE STATEMENTS: Sinus rhythm with premature supraventricular complexes Otherwise normal ECG Compared to ECG 03/08/2021 16:53:16 Atrial premature complex(es) now present ST (T wave) deviation no longer present Possible ischemia no longer present Electronically Signed On 04-09-21 07:28:55 CDT by Darrin Saldaña
== END 2021-04-07 21:46 | disposition home or self-care (01) ==
LOC: ER 15:35
DX: R10.13 Epigastric pain (principal); Z20.822 Contact with and (suspected) exposure to COVID-19; F41.9 Anxiety disorder, unspecified; G89.29 Other chronic pain; E11.9 Type 2 diabetes mellitus without complications; I10 Essential (primary) hypertension; M81.0 Age-related osteoporosis without current pathological fracture
CPT/HCPCS: 93005; 85025; 80048; 36415; 80076; 84484; 83690; 74177; U0003; Q9967; J2765; J1200; J1170 ×2; J3010; J7040; 99283

== ENCOUNTER 2021-04-09 07:39 | Emergency (ER) | payer OTHER ==
--- OUTSIDE RECORDS SUMMARY | 2021-04-09 07:44 | XMS REPORT | Continuity of Care Document ---
:1950 Author Organization [facility] t Address [address] [place] [address] Dr. Briseno. [address] [place] [address] Care Team Providers Name Role Phone Ervin [...] Expiration Date Sour ce Number MEDICAREMEDICARE A [id number] 2021 EDWARD Tian [id number] 00:00:00 - [facility] MEDICAIDMEDICAID OF [id number] 2021 EDWARD Tian [id number] 2020 00:00:00 - Medical [facility] Problems Condition Condition Condition Status Onset Resolution Last Treating Co mments Source Name Details Category Date Date Treatment Clinician Date Abdominal Abdominal Disease [facility] R[facility] - Diagnosis Active 2018-02-24 Mem oria HEADACHE 02-03 07:04:00 l R51 - 00:01: [place] HEADACHE 00 Active 02/03/2018 [facility] MILD Diagnosis Active 2016-03-23 Mem oria STEATOSIS - 12:46:00 l MILD 12:44: Sherif STEATOSIS 00 Active 03/23/[address] [facility] BDDC - F/U Diagnosis Active 2015-12-16 Memoria 3-28 15:27:00 l BDDC - 00:00: Sherif F/U 00 Active 12/08/[address] [facility] R10.9 - Diagnosis Active 2015-12-11 Me moria UNSPECIFIE 3-24 12:56:00 l D R10.9 - 00:01: [place] ABDOMINAL UNSPECIFIE 00 PAIN D ABDOMINAL PAIN Active 12/04/2015 [facility] [place] FOLLOW UP Diagnosis Active 2015-12-16 Memoria 3-18 15:18:00 l FOLLOW 00:00: [place] UP [address] [facility] STOMACH Diagnosis Active 2015-11-24 Me moria PAIN 3-04 13:16:00 l SELF STOMACH 00:00: [place] REFERRAL PAIN 00 SELF REFERRAL Active 11/14/[address] [facility] Anxiety Problem Active 2018-02-11 Keith cayla (finding) 01:51:21 l Anxiety Sherif (finding) Active Problem 02/11/[address] [facility], [facility], [facility] [place] Chronic Problem Active 2018-02-11 Keith cayla hepatitis 01:51:21 l C Chronic Sherif (disorder) hepatitis C (disorder) Active Problem 02/11/[address] [facility], [facility] [place], [facility] [place] Depressive Problem Active 2018-02-11 M emoria disorder 01:51:21 l (disorder) Ramiro n Depressive disorder (disorder) Active Problem 02/11/[address] [facility], OPID Friendswmaude imranda, OPID Marko Gallbladde Problem Active 2018-02-11 M emoria r calculus 01:51:21 l (disorder) Ramiro n Nikkye r calculus (disorder) Active Problem 02/11/[address] [facility], OPID Friendskarley d, OPID [place] MEDICAL Diagnosis Active 2015-12-16 Me moria SERVICES 15:18:00 l NOT MEDICAL [place] AVAILABLE SERVICES IN HOME NOT AVAILABLE IN HOME Active [facility] ALCOHOLIC Diagnosis Active 2015-12-16 Memoria FATTY 15:27:00 l LIVER Sherif ALCOHOLIC FATTY LIVER Active 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 FATTY Diagnosis Active 2016-03-23 Mem oria (CHANGE 12:46:00 l OF) LIVER, FATTY Jeannette nn NOT (CHANGE ELSEWHERE OF) LIVER, C NOT ELSEWHERE C Active [facility] Hypertensi Hypertensi Disease Active C [facility] Diabetes Diabetes Disease Active [facility] S t mellitus mellitus [facility] New onset New onset Problem Active Uni [...] Father Family history of [facility] [place] lung cancer Physicians Social History Social Habit Start Date Stop Date Quantity Comments Source Sex Assigned At [facility] Tobacco use and 2021-03-10 2021-03-10 Never used [facility] - exposure 00:00:00 00:00:00 Medical [place] Alcohol intake 2021-03-10 2021-03-10 Ex-drinker [facility] es - 00:00:00 00:00:00 (finding) [facility] Smoking Status Start Date Stop Date Source [...] MCG 11:35: mouth Medical capsule 13 daily. [place] alendronate Yes 70mg Take 70 mg [facility] [...] - 25 mg 00:00: Medical tablet 00 L[place]ita Nortriptyli Nortriptyli Yes HOLLIE TAKE 1 Univers ne HCl - 25 ne HCl - 25 5-30 JO M.D. CAPSULE AT ity of MG Oral MG Oral 00:00: BEDTIME. Arnie as Capsule Capsule 00 Physici ans Hemocyte Hemocyte Yes R.N. Unive rs Plus 106-1 Plus 106-1 5-23 ity of MG Oral MG Oral 00:00: [place] Capsule Capsule 00 Physici ans Lisinopril Lisinopril Yes R.N. Q0.5D TAKE 1 Univers 10 MG Oral 10 MG Oral 5-23 TABLET i ty of Tablet Tablet 00:00: TWICE [place] 00 DAILY. Physici ans MetFORMIN MetFORMIN Yes [...] AT ity of Tablet Tablet 00:00: BEDTIME. [place] 00 Physici ans Omeprazole Omeprazole Yes R.N. 1 QD TAKE 1 Univers 40 MG Oral 40 MG Oral 5-23 CAPSULE ity of Capsule Capsule 00:00: DAILY [place] Delayed Delayed 00 Physici Release Release ans [...] microgram l Oral 20:42: = 1 cap, [place] Capsule 00 PO, Daily, [Linzess] 30 minutes [...] microgram l Oral 18:20: = 1 cap, [place] Capsule 00 PO, BID, # [Amitiza] 60 tab, 0 Refill(s) linaclotide Yes 145 Memori a 0.145 MG 3-14 microgram l Oral 18:20: = 1 cap, [place] Capsule 00 PO, Daily, [Linzess] 30 minutes [...] tab, PO, l tablet 18:20: Daily, # [place] 00 30 tab, 0 Refill(s) Metoclopram Yes [...] tab, PO, l tablet 18:20: Q4H, PRN [place] 00 Pain, 0 Refill(s) Vital Signs Vital Name Observation Time Observation Value Comments Source Systolic blood 2021-03-11 189 mm[Hg] [facility] - pressure 08:18:00 [facility] Diastolic blood 2021-03-11 81 mm[Hg] [facility] - pressure 08:18:00 [facility] Heart rate 2021-03-11 66 /min [facility] - 08:18:00 [facility] Body temperature 2021-03-11 36.28 Carolann [facility] - 08:18:00 [facility] Respiratory rate 2021-03-11 18 /min [facility] - 08:18:00 [facility] Oxygen saturation 2021-03-11 94 /min [facility] Sujata es - in Arterial blood 08:18:00 [facility] nter by Pulse oximetry Body weight 2021-03-10 62.596 kg [facility] - 11:08:00 [facility] BP Systolic 2018-02-01 131 mm[Hg] Location: [facility] 08:36:00 Position: [place] Physician s Sitting BP Diastolic 2018-02-01 78 mm[Hg] Location: [facility] 08:36:00 Position: [place] Physician s Sitting Height 2018-02-01 60 [in_us] [facility] 08:36:00 [place] Physician s Weight 2018-02-01 117 [lb_av] [facility] 08:36:00 [place] Physician s Body Mass Index 2018-02-01 22.85 kg/m2 University o f Calculated 08:36:00 [place] Physician s Heart Rate 2018-02-01 73 /min Location: [place] [facility] 08:36:00 Brachial [place] Physician s Artery; [...] METER 2021-03-11 08:21:[address] [facility] COMPREHENSIVE METABOLIC 2021-03-11 06:09:00 Clive Alfredo [facility] REPORT OF PROCEDURE - 2021-03-10 23:43:51 Allen Chavez [facility] - ENDOSCOPY [facility] POCT-GLUCOSE METER 2021-03-10 16:43:[address] [facility] POCT-GLUCOSE METER 2021-03-10 12:45:00 Berna BooneFormerly [facility] [place] ERCP 2021-03-10 12:02:00 Desiree Duggan [facility] ERCP,PAPILLOTOMY 2021-03-10 11:31:00 Santiagovan [facility] PROCEDURE W/ C-ARM 2021-03-10 11:31:00 [facility] ERCP,BALLOON SWEEPING 2021-03-10 11:31:00 Santiagovan [facility] POCT-GLUCOSE METER 2021-03-10 09:07:00 Paolo [facility] CBC (HEMOGRAM ONLY) 2021-03-10 04:50:00 [facility] COMPREHENSIVE METABOLIC 2021-03-10 04:50:00 [facility] HEMOGLOBIN A1C 2021-03-10 04:50:00 [facility] POCT-GLUCOSE METER 2021-03-09 23:54:00 PaoloFormerly [facility] SARS-COV2/RT-PCR ([facility] & 2021-03-09 20:13:00 Desiree Duggan [facility] REF LABS) [facility] POCT-GLUCOSE METER 2021-03-09 17:22:00 PaoloFormerly [facility] MR ABDOMEN WO CONTRAST 2021-03-09 15:38:00 [facility] POCT-GLUCOSE METER 2021-03-09 12:22:00 [facility] URINALYSIS W/ REFLEX 2021-03-09 10:56:00 [facility] URINE CULTURE [facility] HEPATIC FUNCTION PANEL 2021-03-09 05:25:00 [facility] PROTHROMBIN TIME/INR 2021-03-09 05:25:00 Mossy[place]Clive [facility] MAGNESIUM 2021-03-09 05:25:00 [place] [facility] BASIC METABOLIC PANEL 2021-03-09 05:25:00 [place] [facility] (7) [facility] CBC W/PLT COUNT & AUTO 2021-03-09 05:25:00 MossyrockClive [facility] S t [facility] HEMOGLOBIN A1C 2021-03-09 05:25:00 [place] [facility] MRI Brain wo contrast 2018-02-08 00:00:00 [facility] [address] Physicians MRI Brain w/wo contrast 2018-02-01 00:00:00 [facility] [address] Physicians Biopsy of liver [facility] Cataract surgery [facility] n Colonoscopy [facility] Endoscopy [facility] Hysterectomy [facility] MRI of abdomen [facility] MRI of kidneys [facility] Ultrasound [facility] History of Gallbladder [facility] surgery Physicians Plan of Care Planned Activity Planned Date Details Comments Source Future Scheduled 2021-09-09 Hemoglobin A1c [facility] kes - Test 00:00:[address] [facility] (procedure) [code = 78932828] Future Scheduled 2021-05-13 INFLUENZA VACCINE (#1) [facility] - Test 00:00:00 [code = INFLUENZA Medical Ce nter VACCINE (#1)] Future Scheduled 2021-03-08 Medicare IPPE (WELCOME [facility] - Test 00:00:00 TO MEDICARE) [code = Medical Center Medicare IPPE (WELCOME TO MEDICARE)] Future Scheduled 2013 PNEUMOCOCCAL 65+ Y[facility] - Test 00:00:00 (1 of 1 - Medical Center [id number] PCV13) [code = PNEUMOCOCCAL 65+ YRS (1 of 1 - [id number] PCV13)] Future Scheduled 1998 SHINGLES VACCINES (1 [...] Future Scheduled [address] [facility] - Test 00:00:00 examination Medical Center (regime/therapy) [code = 998300642] Future Scheduled 1958 Urine screening [facility] - Test 00:00:00 protein (procedure) Medical Center [code = 135238041] Future Scheduled [address] [facility] - Test 00:00:00 [facility] breast (procedure) [code = 436713441] Future Scheduled [address] [facility] - Test 00:00:00 malignant neoplasm of [facility] colon (procedure) [code = 654357785] Encounters Start End Encounter Admission Attending Care Care Encounter Source Date/Time Date/Time Type Type Clinicians Facility Department ID 2018-02-08 2018-02-08 Outpatient Jo [id number] 13:20:00 23:59:00 Hollie Jensen [id number] 2018-02-01 2018-02-01 [facility] Neurology [id number] Univers 08:00:00 08:00:00 t; HOLLIE OSORIO ity of [place], M.D. [place] M.D. Physici ans 2016-03-23 2016-03-23 Outpatient [facility] [id number] 12:44:00 23:59:00 Eddi Vigil 2016-03-23 2016-03-23 Outpatient [facility] [id number] 11:35:00 23:59:00 Roseanna Vigil 2015-12-16 2015-12-16 Outpatient [facility] [id number] 15:20:00 23:59:00 Tahira Vigil 2015-12-11 2015-12-11 Outpatient Chema RYLEY [facility] [id number] 13:01:00 23:59:00 Atilla 2015-12-02 2015-12-02 Outpatient Chema [facility] [id number] 14:23:00 23:59:00 Atilla 03 2015-11-24 2015-11-24 Outpatient Chema [facility] [id number] 13:06:00 23:59:00 Atilla Results Test Description Test Time Test Comments Results Result Comments Source POC-Glucose meter 2021-03-11 08:41:00 Test Item Value Reference Range Interpretation Comme nts POC-Glucose Meter (test code = 104 mg/dL 70-110 : TESTED AT [facility] [address] [facility] 1538) [facility], [address]: Supply Chain Planner/Techni aldo ID = [id number] for HUSSEIN LEMON Lab Interpretation (test code = Normal 30015-7) [facility] [id number] 08:41:00 Test Item Value Reference Range Interpretation Comments POC-GLUCOSE METER 104 mg/dL 70-110 : TESTED A T [facility] [address] (BEAKER) (test code = BERTNE R [facility], 1538) [address]: Supply Chain Planner/Techni aldo ID = [id number] for HUSSEIN DAVID Comprehensive metabolic [id number] 06:49:00 Test Item Value Reference Range Interpretation Comments Protein, Total (test 6.8 See_Comment [Autom ated code = 2885-2) message] The system which generated this result transmit leonidas reference range : 6.0 - 8.3 gm/dL . The reference range was not u sed to interpret th is result as normal/abnormal . Albumin (test code = 3.5 g/dL 3.5-5 81623-6) Alkaline Phosphatase 44 U/L 40-150 (test code = 6768-6) Total Bilirubin (test 0.3 mg/dL 0.2-1.2 code = 1975-2) Sodium (test code = 139 meq/L 073-945 1699-2) Potassium (test code 3.8 meq/L 3.5-5.1 = 2823-3) Chloride (test code = 104 meq/L 98-107 2075-0) CO2 (test code = 27 meq/L -29 8-9) BUN (test code = 12 mg/dL 7-21 3094-0) Creatinine (test code 1.05 mg/dL 0.57-1.25 = 2160-0) Glucose (test code = 79 mg/dL 70-105 2345-7) Calcium (test code = 8.4 mg/dL 8.4-10.2 89704-6) AST (test code = 49 U/L 5-34 H 1920-8) ALT (test code = 41 U/L 6-55 1742-6) EGFR (test code = 52 mL/min/1.73 [place] [address]-2) NOT ACCURATE CREATININE CLEARANCE IN PREDICTING GLOMERULAR FILTRATION RATE . ESTIMATED GFR I S NOT APPLICABLE FOR DIALYSIS PATIEN TS. [place] (test code = TORRES) Supply Chain Planner ID - HUMBLE M Lab Interpretation Abnormal (test code = 47470-6) [facility] Hospital[facility]PREHENSIVE METABOLIC [id number] 06:49:00 Test Item Value Reference Range Interpretation [...] S NOT APPLICABLE FOR DIALYSIS PATIEN TS. Supply Chain Planner ID - HUMBLE MPOCT-GLUCOSE [id number] 16:54:00 Test Item Value Reference Range Interpretation Comments POC-GLUCOSE METER 171 mg/dL 70-110 H : [facility] ([facility]) (test code = FORTUNATO Kaba [facility], 1538) [address]: Supply Chain Planner/Techni aldo ID = [id number] for ALBINO GONZALEZ Hemoglobin [id number] 15:22:00 Test Item Value Reference Range Interpretation Comments Hemoglobin A1C (test code = 4548-4) 6.2 % 4.3-6.1 H Lab Interpretation (test code = Abnormal 68749-6) [facility] Hospital[facility]MOGLOBIN [id number] 15:22:00 Test Item Value Reference Range Interpretation Comments HEMOGLOBIN A1C ([place]) (test code = 6.2 % 4.3-6.1 H 368) POCT-GLUCOSE [id number] 12:56:00 Test Item Value Reference Range Interpretation Comments POC-GLUCOSE METER 93 mg/dL 70-110 : Notified RN/MD: TESTED (LIA) (test code = AT [facility] [address] [facility] 1538) [facility], 7[address] 30: Supply Chain Planner/Techni aldo ID = [id number] for Simm vita, Arely [place], [id number] 12:02:00Reason for exam:->ERCP tomorrow [facility] : 1950 Sex: FFluoroscopic unit utilized for a procedure performed in the OR. No interpretation was requested. Refer to the operative report for findings. Refer to PACS for patient radiation dose information.FL Endoscopic Retrograde [id number] 12:02:00Interface, External Ris In - 03/10/2021 12:18 PM CDTFluoroscopic unit utilized for a procedure performed in the OR. No interpretation was requested. Refer to the operative report for findings. Referto PACS for patient radiation dose information.[facility] HospitalPO[facility]SE [id number] 09:27:00 Test Item Value Reference Range Interpretation Comments POC-GLUCOSE METER 74 mg/dL 70-110 : TESTED A T [facility] [address] (BEAKER) (test code = [place], 1538) [address]: Supply Chain Planner/Techni aldo ID = [id number] for ALBINO ROSS COMPREHENSIVE METABOLIC [id number] 05:49:00 Test Item Value Reference Range Interpretation [...] S NOT APPLICABLE FOR DIALYSIS PATIEN TS. Supply Chain Planner ID - HUMBLE MC (Hemogram only)2021-03-10 05:10:00 Test Item Value Reference Range Interpretation Comments WBC (test code = 6690-2) 9.1 See_Comment [A utomated message] The system [email or web address] generated this result transmitted ref erence range: 3.5 - 10 .5 K/L. The refe rence range was not u sed to interpret this result as normal/abnor mal. RBC (test code = 789-8) 3.57 See_Comment L [Au tomated message] The system [email or web address] generated this result transmitted ref erence range: 3.93 - 5 .22 M/L. The refe rence range was not u sed to interpret this result as normal/abnor mal. MCHC (test code = 786-4) 30.9 See_Comment L [A utomated message] The system [email or web address] generated this result transmitted ref erence range: [...] code = 278 See_Comment [Aut omated message] 137-3) The system [email or web address] generated this result transmitted ref erence range: 150 - 45 0 K/CU MM. The referen ce range was not u sed to interpret this result as normal/abnor mal. MPV (test code = 9.3 fL 9.4-12.3 L 27592-9) nRBC (test code = 413) 0 See_Comment [Aut omated message] The system [email or web address] generated this result transmitted ref erence range: 0 - 0 /1 00 WBC. The refere nce range was not u sed to interpret this result as normal/abnor mal. Lab Interpretation (test Abnormal code = 98911-0) [facility] (HEMOGRAM ONLY)2021-03-10 05:10:00 Test Item Value Reference [...] 0-0 (BEAKER) (test code = 413) POCT-GLUCOSE [id number] 00:05:00 Test Item Value Reference Range Interpretation Comments POC-GLUCOSE METER 83 mg/dL 70-110 : TESTED A T [facility] [address] (BEAKER) (test code = [place], 1538) [address]: Supply Chain Planner/Techni aldo ID = [id number] for BRENDA VENCES SARS-CoV2/RT-PCR (Asymptomatic ONLY)2021-03-09 23:58:00 Test Item Value Reference Range Interpretation Comments SARS-COV2/RT-PCR Negative Not Detected, (test code = Negative, See 77956-4) external report for linked test [facility]-COV-2 [facility] (test code = 47970-0) TORRES (test code = Negative result for [...] of the Act. Fact Sheet for Healthcare Providers:https://www.Applika.MoPowered/sites/default/f chance/product/documents/F act_Sheet_HC_Providers_L lal_PUWJ-ErN-5.pdf Fact Sheet for Healthcare Patients:https://www.DeRev.com/sites/default/fi les/product/documents/Fa ct_Sheet_Patients_Lyra_S ARS-CoV-2.pdf Performing Laboratory:[facility] [place] [address] [facility] ([facility])2021-03-09 23:58:00 Test Item Value Reference Range Interpretation Comments SARS-COV2/RT-PCR (test Negative Not Detected, Negative, code = 1659423) See external report for linked test SARS-COV-2 PERFORMING LAB [facility] SHIV (test code = 7957699) Negative result for this test determines that [...] 564(g) of the Act.Fact Sheet for Healthcare Providers:https://www.App47.MoPowered/sites/default/files/product/documents/Fact_Shee w_GO_Jmpcipopo_Seut_IOTW-AgC-1.pdfFact Sheet for Healthcare Patients:https://www.App47.MoPowered/sites/default/files/product/ documents/Srvi_Atmov_Rxsvolzs_Moyn_SWRS-OcL-7.pdfPerforming Laboratory:[facility], [place] [id number]-[id number] METER 2021-03-09 17:34:00 Test Item Value Reference Range Interpretation Comments POC-GLUCOSE METER 97 mg/dL 70-110 : TESTED A T [facility] [address] (BEAKER) (test code = [place], 1538) [address]: Supply Chain Planner/Techni aldo ID = [id number] for ALBINO ROSS MR, ABDOMEN, [id number] 17:11:00Unlisted Reason for Exam - Click Yes and Enter Reason Below->NoPatient with hyperdense material seen in distal CBD on CTA performed in [facility] : 1950 Sex: [...] Aly Verified Date/Time: 03/09/2021 17:11:18 Reading Location: [address] Transitional Reading Room MR abdomen without IV contrast [id number] 17:11:00 Interface, External Ris In - 03/09/2021 [...] MDReport Verified Date/Time: 03/09/2021 17:11:18 Reading Location: [address] Transitional [facility] [id number] 12:41:00 Test Item Value Reference Range Interpretation Comments POC-GLUCOSE METER 92 mg/dL 70-110 : TESTED A T [facility] [address] (BEAKER) (test code = [place], 1538) [address]: Supply Chain Planner/Techni aldo ID = [id number] for PARESH NO ALBINO Urinalysis w/Microscopic + Reflex to [id number] 11:21:00 Test Item Value Reference Range Interpretation Comments Color, UA (test code Light Yellow = 5778-6) Clarity, UA (test Clear code = 5767-9) Specific [place], UA 1.033 1.001-1.035 (test code = 5811-5) pH, UA (test code = 5.5 5.0-8.0 5803-2) Protein, UA (test Negative Negative code = 41121-8) Glucose, UA (test Negative Negative code = 365) Ketones, UA (test Negative Negative code = 2514-8) Bilirubin, UA (test Negative Negative code = 74704-9) Blood, UA (test code Trace Negative A = 46504-2) Nitrite, UA (test Negative Negative code = 5802-4) Leukocytes, UA (test Negative Negative code = 5799-2) Urobilinogen, UA 0.2 mg/dL 0.2-1 (test code = 60590-4) RBC, UA (test code = 2 See_Comment [Autom ated 17571-7) message] The system which generated this result [...] Bacteria, UA (test None Seen code = 47081-5) Mucus (test code = Rare 8247-9) Squam Epithel, UA 1 See_Comment [Automate d (test code = 94402-1) messag e] The system which generated this result transmit leonidas reference range : /HPF. The reference range was not used to interpret this result as normal/abnormal . Crystals, Urine (test None Seen code = 63255-1) Specimen Source (test code = 2795) TORRES (test code = TORRES) Supply Chain Planner ID - [auto]Supply Chain Planner ID - tech Lab Interpretation Abnormal (test code = 60543-1) [facility]/ REFLEX URINE [id number] 11:21:00 Test Item Value Reference Range Interpretation [...] = 1521) SOURCE(BEAKER) (test code = 2795) Supply Chain Planner ID - [auto]Supply Chain Planner ID - techHEMOGLOBIN [id number] 10:22:00 Test Item Value Reference Range Interpretation Comments HEMOGLOBIN A1C (BEAKER) (test code = 6.1 % 4.3-6.1 368) Basic metabolic [id number] 06:48:00 Test Item Value Reference Range Interpretation Comments Sodium (test code = 141 meq/L 261-357 8211-2) Potassium (test code = 4.2 meq/L 3.5-5.1 2823-3) Chloride (test code = 106 meq/L 98-107 2075-0) CO2 (test code = 25 meq/L 22-29 2028-9) BUN (test code = 16 mg/dL 7-21 3094-0) Creatinine (test code 1.20 mg/dL 0.57-1.25 = 2160-0) Glucose (test code = 88 mg/dL 70-105 2345-7) Calcium (test code = 8.3 mg/dL 8.4-10.2 L 95480-1) EGFR (test code = 44 mL/min/1.73 [place] [address]-7) NOT ACCURATE CREATININE CLEARANCE IN PREDICTING GLOMERULAR FILTRATION RATE . ESTIMATED GFR I S NOT APPLICABLE FOR DIALYSIS PATIENTS. TORRES (test code = TORRES) Supply Chain Planner ID - ELVIN Kiran Lab Interpretation Abnormal (test code = 05032-3) [facility] HospitalHepatic function [id number] 06:48:00 Test Item Value Reference Range Interpretation Comments Protein, Total (test 7.8 See_Comment [Autom ated code = 2885-2) message] The system which generated this result transmit leonidas reference range : 6.0 - 8.3 gm/dL . The reference range was not u sed to interpret th is result as normal/abnormal . Albumin (test code = 4.0 g/dL 3.5-5 07603-4) Total Bilirubin (test 0.3 mg/dL 0.2-1.2 code = 1975-2) Bilirubin, Direct 0.1 mg/dL 0.1-0.5 (test code = 1968-7) Alkaline Phosphatase 53 U/L 40-150 (test code = 6768-6) AST (test code = 29 U/L 5-34 1920-8) ALT (test code = 30 U/L 6-55 1742-6) TORRES (test code = TORRES) Supply Chain Planner ID - ELVIN W Lab Interpretation Normal (test code = 76159-3) [facility] Test Item Value Reference Range Interpretation Comments Magnesium (test code = 2.1 mg/dL 1.6-2.6 68083-3) TORRES (test code = TORRES) Supply Chain Planner ID Carlo Kiran Lab Interpretation (test Normal code = 69451-7) [facility] [id number] 06:48:00 Test Item Value Reference Range Interpretation [...] S NOT APPLICABLE FOR DIALYSIS PATIEN TS. Supply Chain Planner ID Carlo OCONNOR [id number] 06:48:00 Test Item Value Reference Range Interpretation Comments MAGNESIUM (BEAKER) (test code = 2.1 mg/dL 1.6-2.6 627) Supply Chain Planner ID Carlo OCONNOR WHEPATIC FUNCTION [id number] 06:48:00 Test Item Value Reference Range Interpretation [...] (test code = 30 U/L 6-55 347) Supply Chain Planner UNA OCONNOR WProthrombin time/[id number] 06:32:00 Test Item Value Reference Interpretation Comments [...] valves. Lab Interpretation Normal (test code = 51936-7) [facility]/[id number] 06:32:00 Test Item Value Reference Range Interpretation Comments PROTIME (BEAKER) 12.9 seconds 11.9-14.2 (test code = 759) INR (BEAKER) (test 0.99 See_Comment [Automat ed message] code = 370) The system [email or web address] generated this result transmitted ref erence range: [...] See_Comment H [A utomated message] The system [email or web address] generated this result transmitted ref erence range: 3.5 - 10 .5 K/L. The refe rence range was not u sed to interpret this result as normal/abnor mal. RBC (test code = 789-8) 3.74 See_Comment L [Au tomated message] The system [email or web address] generated this result transmitted ref erence range: 3.93 - 5 .22 M/L. The refe rence range was not u sed to interpret this result as normal/abnor mal. MCHC (test code = 786-4) 31.1 See_Comment L [A utomated message] The system [email or web address] generated this result transmitted ref erence range: [...] See_Comment [Aut omated message] 777-3) The system [email or web address] generated this result transmitted ref erence range: 150 - 45 0 K/CU MM. The referen ce range was not u sed to interpret this result as normal/abnor mal. MPV (test code = 9.2 fL 9.4-12.3 L 75004-5) nRBC (test code = 413) 0 See_Comment [Aut omated message] The system [email or web address] generated this result transmitted ref erence range: [...] H [Aut omated message] 670) The system [email or web address] generated this result transmitted ref erence range: 1.56 - 6 .13 K/L. The refe rence range was not u sed to interpret this result as normal/abnor mal. # Lymphs (test code = 2.53 See_Comment [Auto mated message] 414) The system [email or web address] generated this result transmitted ref erence range: 1.18 - 3 .74 K/L. The refe rence range was not u sed to interpret this result as normal/abnor mal. # Monos (test code = 0.62 See_Comment H [Autom ated message] 415) The system [email or web address] generated this result transmitted ref erence range: 0.24 - 0 .36 K/L. The refe rence range was not u sed to interpret this result as normal/abnor mal. # Eos (test code = 416) 0.00 See_Comment L [Au tomated message] The system [email or web address] generated this result transmitted ref erence range: 0.04 - 0 .36 K/L. The refe rence range was not u sed to interpret this result as normal/abnor mal. # Baso (test code = 417) 0.02 See_Comment [A utomated message] The system [email or web address] generated this result transmitted ref erence range: 0.01 - 0 .08 K/L. The refe rence range was not u sed to interpret this result as normal/abnor mal. Immature 0 % 0-1 Granulocytes-Relative (test code = 2801) Lab Interpretation (test Abnormal code = 27627-2) [facility] W/PLT COUNT & AUTO [id number] 06:29:00 Test Item Value Reference Range Interpretation [...] code = 2801) MRI Brain wo contrast [id number] 16:25:00Patient Name: RIYA VERA: 1950. Age: 67 years. Gender: Female.MR: [id number]. Location: [facility]. Provider: Hollie Osorio MD.EXAM: [...] intracranial abnormality. Mild chronicmicroangiopathic ischemic gliosis. SL: [id number] by: Finesse Dias MDDictated Date/time: 0 02/08/18 17:31Electronically Signed by: Finesse Dias MD 02/08/1817:40[facility]wo [facility] [id number] 13:39:00 Test Item Value Reference Range Interpretation Comments Brain w/wo contrast MRI Cancel Reason: Exam (test code = Brain w/wo Replaced contrast MRI) [facility]
--- NOTE | 2021-04-09 09:32 | RAD REPORT ---
EXAM DESCRIPTION: Jose Single View04/09/2021 9:20 am CLINICAL HISTORY: Abd pain COMPARISON: 02/2021 FINDINGS: The lungs appear clear of acute infiltrate. The heart is normal size IMPRESSION: No acute abnormalities displayed
[2021-04-09 09:54] LABS: Urine Blood 1+ (Negative); Urine Glucose Negative (Negative); Urine Protein Trace (Negative)
[2021-04-09] MEDS ORDERED: NA CHLORIDE 0.9% 1,000 ML ONE (11:10)
[2021-04-09] MEDS ORDERED: FAMOTIDINE 20 MG/2 ML VIAL IV ONE (11:10)
[2021-04-09] MEDS ORDERED: HYDROMORPHONE HCL 1 MG/ML INJ ONE ×2 (11:10→12:49)
[2021-04-09] MEDS ORDERED: ONDANSETRON 4 MG/2 ML VIAL ONE (11:10)
[2021-04-09 11:14] LABS: Absolute Lymphocytes (CBC) 1.8 K/uL (0.7-4.9); Basophils % 0.6 % (0-1.3); Hematocrit 33.6 % (36.0-45.0); Lymphocytes % 15.6 % (15.3-44.8); MPV 6.7 fL (7.6-11.3); RBC Red Blood Cell Count 3.74 M/uL (3.86-4.86)
[2021-04-09 11:18] LABS: Protime INR 1.01
[2021-04-09 11:30] LABS: ALT/SGPT 97 U/L (12-78); AST/SGOT 43 U/L (15-37); Albumin 3.8 g/dL (3.4-5.0); Alkaline Phosphatase 59 U/L (45-117); BUN Blood Urea Nitrogen 14 mg/dL (7-18); Bicarbonate 25 mmol/L (21-32); Bilirubin Direct < 0.1 mg/dL (0-0.2); Bilirubin Total 0.3 mg/dL (0.2-1.0); Glucose Level 103 mg/dL (74-106); Lipase 322 U/L (73-393); Magnesium 2.3 mg/dL (1.8-2.4); NT PRO-BNP 319 pg/mL (<125); Potassium 3.4 mmol/L (3.5-5.1); Protein, Total 8.7 g/dL (6.4-8.2); Sodium Level 141 mmol/L (136-145); Troponin (Emerg Dept Use Only) < 0.02 ng/mL (0.0-0.045)
--- NOTE | 2021-04-09 12:21 | RAD REPORT ---
EXAM DESCRIPTION: CT - Abdomen Pelvis W Contrast - 04/09/2021 12:09 pm CLINICAL HISTORY: Abdominal pain COMPARISON: April 07, 2021 TECHNIQUE: Computed axial tomography of the abdomen pelvis was obtained. 100 cc Isovue-300 was admin istered intravenously. Oral contrast was not requested which limits evaluation of bowel. All CT scans are performed using dose optimization technique as appropriate and may include automated exposure control or mA/KV adjustment according to patient size. FINDINGS: Chronic pneumobilia. Cholecystectomy Otherwise, liver, spleen, pancreas, adrenal and kidneys appear unremarkable. There is no evidence of diverticulitis. Old compression fracture L1 vertebral body IMPRESSION: No acute abnormality is displayed.
--- NOTE | 2021-04-09 13:28 | EDPHYS ---
Physician Documentation [facility] Name: Alberto Botello Age: 70 yrs Sex: Female : 1950 Arrival Date: 04/09/2021 Time: 07:39 Bed 25 Private MD: Alis Jamison H ED Physician Rob Galo HPI: 04/09 08:55 This 70 yrs old Female presents to ER via Wheelchair with complaints of Abdominal sarah Pain. 08:55 The patient presents with abdominal pain in the epigastric area, in the upper abdomen, sarah in the left upper quadrant, abdominal distention in the upper abdomen, in the lower abdomen. Onset: The symptoms/episode began/occurred 1 day(s) ago. The symptoms radiate to the left flank. Associated signs and symptoms: none. The symptoms are described as crampy. Modifying factors: The symptoms are alleviated by nothing, the symptoms are aggravated by nothing. Severity of pain: At its worst the pain was moderate in the emergency department the pain is unchanged. The patient has not experienced similar symptoms in the past. Historical: - Allergies: 07:45 No Known Allergies; aa5 - PMHx: 07:45 Anxiety; Chronic pain; Diabetes - NIDDM; Hepatitis; Hypertension; Osteoporosis; aa5 Pancreatitis; - PSHx: 07:45 Cholecystectomy; aa5 - Immunization history:: Client reports receiving the 2nd dose of the Covid vaccine, Flu vaccine is up to date. - Social history:: Smoking status: Patient denies any tobacco usage or history of. - Family history:: not pertinent. ROS: 08:55 Constitutional: Negative for fever, chills, and weight loss, Eyes: Negative for injury, sarah pain, redness, and discharge, ENT: Negative for injury, pain, and discharge, Neck: Negative for injury, pain, and swelling, Cardiovascular: Negative for chest pain, palpitations, and edema, Respiratory: Negative for shortness of breath, cough, wheezing, and pleuritic chest pain, : Negative for injury, bleeding, discharge, and swelling, MS/Extremity: Negative for injury and deformity, Skin: Negative for injury, rash, and discoloration, Neuro: Negative for headache, weakness, numbness, tingling, and seizure, Psych: Negative for depression, anxiety, suicide ideation, homicidal ideation, and hallucinations, Allergy/Immunology: Negative for hives, rash, and allergies, Endocrine: Negative for neck swelling, polydipsia, polyuria, polyphagia, and marked weight changes, Hematologic/Lymphatic: Negative for swollen nodes, abnormal bleeding, and unusual bruising. 08:55 Abdomen/GI: Positive for abdominal pain, nausea, of the epigastric area and left upper quadrant. 08:55 Back: Positive for flank pain, on the left. Exam: 08:55 Constitutional: This is a well developed, well nourished patient who is awake, alert, sarah and in no acute distress. Head/Face: Normocephalic, atraumatic. Eyes: Pupils equal round and reactive to light, extra-ocular motions intact. Lids and lashes normal. Conjunctiva and sclera are non-icteric and not injected. Cornea within normal limits. Periorbital areas with no swelling, redness, or edema. ENT: Nares patent. No nasal discharge, no septal abnormalities noted. Tympanic membranes are normal and external auditory canals are clear. Oropharynx with no redness, swelling, or masses, exudates, or evidence of obstruction, uvula midline. Mucous membranes moist. Neck: Trachea midline, no thyromegaly or masses palpated, and no cervical lymphadenopathy. Supple, full range of motion without nuchal rigidity, or vertebral point tenderness. No Meningismus. Chest/axilla: Normal chest wall appearance and motion. Nontender with no deformity. No lesions are appreciated. Cardiovascular: Regular rate and rhythm with a normal S1 and S2. No gallops, murmurs, or rubs. Normal PMI, no JVD. No pulse deficits. Respiratory: Lungs have equal breath sounds bilaterally, clear to auscultation and percussion. No rales, rhonchi or wheezes noted. No increased work of breathing, no retractions or nasal flaring. Female : Normal external genitalia. Skin: Warm, dry with normal turgor. Normal color with no rashes, no lesions, and no evidence of cellulitis. MS/ Extremity: Pulses equal, no cyanosis. Neurovascular intact. Full, normal range of motion. Neuro: Awake and alert, GCS 15, oriented to person, place, time, and situation. Cranial nerves II-XII grossly intact. Motor strength 5/5 in all extremities. Sensory grossly intact. Cerebellar exam normal. Normal gait. Psych: Awake, alert, with orientation to person, place and time. Behavior, mood, and affect are within normal limits. 08:55 Abdomen/GI: Inspection: distension, that is mild, Bowel sounds: active, Palpation: moderate abdominal tenderness, in the epigastric area and left upper quadrant, Liver: no appreciated palpable abnormalities, Hernia: not appreciated. Vital Signs: 07:45 BP 153 / 99; Pulse 84; Resp 16 S; Temp 97.6(TE); Pulse Ox 99% on R/A; aa5 11:00 BP 181 / 94; Pulse 80; Resp 18; Pulse Ox 97% on R/A; tr6 12:15 BP 170 / 91; Pulse 98; Resp 18; Pulse Ox 100% on R/A; tr6 14:00 BP 186 / 99; Pulse 94; Resp 18; Pulse Ox 100% on R/A; tr6 MDM: 08:44 Patient medically screened. sarah 08:57 Differential diagnosis: bowel obstruction, coronary artery disease, diverticulitis, sarah gastroesophageal reflux disease, non-specific abd pain, pancreatitis, Peptic Ulcer Disease, Peritonitis. Data reviewed: vital signs, nurses notes, lab test result(s), EKG, radiologic studies, CT scan. Data interpreted: cafeteria monitor: rate is 84 beats/min, rhythm is regular, Pulse oximetry: on room air is 99 %. Test interpretation: by ED physician or midlevel provider: ECG, plain radiologic studies. Counseling: I had a detailed discussion with the patient and/or guardian regarding: the historical points, exam findings, and any diagnostic results supporting the discharge/admit diagnosis, lab results, radiology results. 04/09 08:54 Order name: Basic Metabolic Panel [facility] 04/09 08:54 Order name: CBC with Diff; Complete Time: 11:46 sarah 04/09 08:54 Order name: LFT's [facility] 04/09 08:54 Order name: Magnesium; Complete Time: 11:46 04/09 08:54 Order name: NT PRO-BNP; Complete Time: 11:46 04/09 08:54 Order name: PT-INR; Complete Time: 11:46 04/09 08:54 Order name: Troponin (emerg Dept Use Only); Complete Time: 11:46 04/09 08:54 Order name: XRAY Chest (1 view); Complete Time: 10:27 [facility] 04/09 08:54 Order name: Lipase; Complete Time: 11:46 [facility] 04/09 08:54 Order name: CT Abd/Pelvis - PO and IV Contrast; Complete Time: 12:47 [facility] 04/09 08:55 Order name: Basic Metabolic Panel; Complete Time: 11:46 [facility] 04/09 08:55 Order name: Liver (Hepatic) Function; Complete Time: 11:46 [facility] 04/09 09:53 Order name: Urine Dipstick-Ancillary; Complete Time: 10:27 [facility] 04/09 08:54 Order name: EKG; Complete Time: 08:55 [facility] 04/09 08:54 Order name: Cardiac monitoring; Complete Time: 11:31 [facility] 04/09 08:54 Order name: EKG - Nurse/Tech; Complete Time: 09:45 [facility] 04/09 08:54 Order name: IV Saline Lock; Complete Time: 10:45 [facility] 04/09 08:54 Order name: Labs collected and sent; Complete Time: 10:45 [facility] 04/09 08:54 Order name: O2 Per Protocol; Complete Time: 09:45 [facility] 04/09 08:54 Order name: O2 Sat Monitoring; Complete Time: 09:45 [facility] 04/09 08:54 Order name: Urine Dipstick-Ancillary (obtain specimen); Complete Time: 10:00 [facility] Administered Medications: 11:10 Drug: Pepcid (famotidine) 20 mg Route: IVP; Site: right upper arm; tr6 11:10 Drug: Dilaudid (HYDROmorphone) 1 mg Route: IVP; Site: right upper arm; tr6 11:10 Drug: Zofran (Ondansetron) 2 mg Route: IVP; Site: right upper arm; tr6 11:11 Drug: NS 0.9% 500 ml Route: IV; Rate: bolus; Site: right upper arm; tr6 11:11 Drug: NS 0.9% 1000 ml Route: IV; Rate: 125 ml/hr; Site: right upper arm; tr6 13:39 Drug: ProTONIX (pantoprazole) 40 mg Route: IVP; Site: right upper arm; tr6 Disposition Summary: 04/09/21 13:27 Discharge Ordered Location: Home sarah Problem: new sarah Symptoms: have improved sarah Condition: Stable sarah Diagnosis - Abdominal tenderness sarah - Anemia, unspecified sarah - Type 2 diabetes mellitus with hyperglycemia sarah - Other chronic pain sarah - Upper abdominal pain, unspecified sarah Followup: sarah - With: Alis Jamison DO - When: 2 - 3 days - Reason: Recheck today's complaints, Continuance of care, Re-evaluation by your physician Followup: sarah - With: Miguel Larson MD - When: Tomorrow - Reason: Recheck today's complaints, Continuance of care, Re-evaluation by your physician Discharge Instructions: - Discharge Summary Sheet sarah - Abdominal Pain, Adult sarah - Anemia sarah - Chronic Pain, Adult sarah - Type 2 Diabetes Mellitus, Diagnosis, Adult sarah Forms: - Medication Reconciliation Form sarah - Thank You Letter sarah - Antibiotic Education [facility] - Prescription Opioid Use [facility] Prescriptions: - Protonix 40 mg Oral Tablet - take 1 tablet by ORAL route once daily; 30 tablet; Refills: 0, Product [facility] Selection Permitted - Zofran 4 mg Oral Tablet - take 1 tablet by ORAL route every 12 hours As needed; 20 tablet; Refills: 0, [facility] Product Selection Permitted - dicyclomine 20 mg Oral Tablet - take 1 tablet by ORAL route 4 times per day; 28 tablet; Refills: 0, Product [facility] Selection Permitted Signatures: Dispatcher [employer] Rob Mendez MD MD cha Calderon, Audri, RN RN aa5 Yara Vora RN RN tr6
--- NOTE | 2021-04-09 13:28 | ER ---
Nurse's Notes [facility] Name: Alberto Botello Age: 70 yrs Sex: Female : 1950 Arrival Date: 04/09/2021 Time: 07:39 Bed 25 Private MD: Alis Jamison H Diagnosis: Abdominal tenderness;Anemia, unspecified;Type 2 diabetes mellitus with hyperglycemia;Other chronic pain;Upper abdominal pain, unspecified Presentation: 04/09 07:45 Chief complaint: Patient states: chronic abd pain, pt's son report pt being seen here 2 aa5 days ago, states "she needs Dilaudid". Pt denies vomiting. 07:45 Coronavirus screen: At this time, the client does not indicate any symptoms associated aa5 with coronavirus-19. Ebola Screen: Patient negative for fever greater than or equal to 101.5 degrees Fahrenheit, and additional compatible Ebola Virus Disease symptoms. Initial Sepsis Screen: Does the patient meet any 2 criteria? No. Patient's initial sepsis screen is negative. Does the patient have a suspected source of infection? No. Patient's initial sepsis screen is negative. Risk Assessment: Do you want to hurt yourself or someone else? Patient reports no desire to harm self or others. Onset of symptoms was April 09, 2021. 07:45 Acuity: ART 3 aa5 07:45 Method Of Arrival: Wheelchair aa5 Historical: - Allergies: 07:45 No Known Allergies; aa5 - PMHx: 07:45 Anxiety; Chronic pain; Diabetes - NIDDM; Hepatitis; Hypertension; Osteoporosis; aa5 Pancreatitis; - PSHx: 07:45 Cholecystectomy; aa5 - Immunization history:: Client reports receiving the 2nd dose of the Covid vaccine, Flu vaccine is up to date. - Social history:: Smoking status: Patient denies any tobacco usage or history of. - Family history:: not pertinent. Screenin:14 Abuse screen: Denies threats or abuse. Denies injuries from another. Nutritional tr6 screening: No deficits noted. Tuberculosis screening: No symptoms or risk factors identified. Fall Risk None identified. Assessment: 09:00 General: Appears uncomfortable, obese, Behavior is appropriate for age. Pain: Complains tr6 of pain in left upper quadrant. Neuro: No deficits noted. Cardiovascular: No deficits noted. Respiratory: No deficits noted. GI: Bowel sounds Abdomen is tender to palpation in left upper quadrant. : No deficits noted. EENT: No deficits noted. Derm: No deficits noted. Musculoskeletal: No deficits noted. 10:13 Reassessment: unable to obtain IV at this time, MD Galo at bedside also unable to tr6 obtain IV. US IV to be obtained. 12:18 Reassessment: pt returned from CT. tr6 14:42 Reassessment: Patient appears in no apparent distress at this time. Patient and/or iw family updated on plan of care and expected duration. Pain level reassessed. Patient is alert, oriented x 3, equal unlabored respirations, skin warm/dry/pink. Patient states feeling better. Patient states symptoms have improved. Vital Signs: 07:45 BP 153 / 99; Pulse 84; Resp 16 S; Temp 97.6(TE); Pulse Ox 99% on R/A; aa5 11:00 BP 181 / 94; Pulse 80; Resp 18; Pulse Ox 97% on R/A; tr6 12:15 BP 170 / 91; Pulse 98; Resp 18; Pulse Ox 100% on R/A; tr6 14:00 BP 186 / 99; Pulse 94; Resp 18; Pulse Ox 100% on R/A; tr6 ED Course: 07:39 Patient arrived in ED. am2 07:40 Alis Jamison DO is Private Physician. am2 07:45 Arm band placed on. aa5 07:47 Triage completed. aa5 08:44 Rob Galo MD is Attending Physician. sarah 08:46 Yara Vora, YOSVANY is Primary Nurse. tr6 09:20 XRAY Chest (1 view) In Process Unspecified. EDMS 10:14 Resting quietly. tr6 10:14 Patient has correct armband on for positive identification. Diet: Patient is NPO. tr6 10:14 No provider procedures requiring assistance completed. tr6 12:09 CT Abd/Pelvis - PO and IV Contrast In Process Unspecified. EDMS 13:26 Alis Jamison DO is Referral Physician. sarah 13:26 Miguel Larson MD is Referral Physician. sarah 14:43 IV discontinued, intact, bleeding controlled, No redness/swelling at site. Pressure iw dressing applied. Administered Medications: 11:10 Drug: Pepcid (famotidine) 20 mg Route: IVP; Site: right upper arm; tr6 11:10 Drug: Dilaudid (HYDROmorphone) 1 mg Route: IVP; Site: right upper arm; tr6 11:10 Drug: Zofran (Ondansetron) 2 mg Route: IVP; Site: right upper arm; tr6 11:11 Drug: NS 0.9% 500 ml Route: IV; Rate: bolus; Site: right upper arm; tr6 11:11 Drug: NS 0.9% 1000 ml Route: IV; Rate: 125 ml/hr; Site: right upper arm; tr6 13:39 Drug: ProTONIX (pantoprazole) 40 mg Route: IVP; Site: right upper arm; tr6 Outcome: 13:27 Discharge ordered by . sarah 14:43 Discharged to home via wheelchair, with family. 14:43 Condition: good 14:43 Discharge instructions given to patient, family, Instructed on discharge instructions, follow up and referral plans. medication usage, Demonstrated understanding of instructions, follow-up care, medications, Prescriptions given X 4. 14:43 Patient left the ED. iw Signatures: Dispatcher [employer] EDRob Hall MD MD cha Williams, Irene, RN RN Merna Montoya RN RN Ami Gupta Tiffany, RN RN tr6
[2021-04-09] MEDS ORDERED: PANTOPRAZOLE 40 MG INJ ONE (13:58)
[2021-04-09 22:07] VITALS: TEMP 97.6
[2021-04-09 22:10] VITALS: O2SAT 100
[2021-04-09 22:12] VITALS: BP 186/99
== END 2021-04-09 14:43 | disposition home or self-care (01) ==
LOC: ER 07:39
DX: R10.10 Upper abdominal pain, unspecified (principal); G89.29 Other chronic pain; D64.9 Anemia, unspecified; E11.65 Type 2 diabetes mellitus with hyperglycemia; I10 Essential (primary) hypertension
CPT/HCPCS: 93005; 85025; 80048; 36415; 83735; 85610; 80076; 81003; 84484; 83690; 83880; 74177; 71045; 96375; 96374; 99283; C9113; J1170 ×2; J7030; J2405

== ENCOUNTER 2021-05-08 15:08 | Emergency (ER) | payer OTHER ==
--- OUTSIDE RECORDS SUMMARY | 2021-05-08 15:15 | XMS REPORT | Continuity of Care Document ---
:1950 Author Organization [facility] t Address [address] [place] [address] Dr. Briseno. [address] [place] [address] Care Team Providers Name Role Phone Ervin Jamison Primary Care Physician Roxie MAY Attending Clinician Amy Palencia MD Attending Clinician Merchant MAY Attending Clinician Jose Enrique MAY Attending Clinician Сергей Attending Clinician Yasmani Shelton MD Attending Clinician Ezequiel DUMONT, Galina Attending Clinician Unavailable Lex MAY, RKenrick Attending Clinician Srini Schuster MD Attending Clinician Ammy Boone MD Attending Clinician Kathy Chavez MD Attending Clinician Eldon Bahena MD Attending Clinician DOMENICO Attending Clinician Unavailable AMY PALENCIA Admitting Clinician Unavailable SRINI SCHUSTER Admitting Clinician Unavailable Payers Payer Name Policy Type Policy Effective Date Expiration Date Sour ce Number MEDICAREMEDICARE A [id number] 2003 EDWARD Brandy misha Tian [id number] 2003-P 00:00:00 - Medical resentMedicare Center MEDICAIDMEDICAID OF [id number] 2013 EDWARD Tian [id number] 00:00:00 - Medical 3-PresentMedicaid Center Problems Condition Condition Condition Status Onset Resolution Last Treating Co mments Source Name Details Category Date Date Treatment Clinician Date Common Common Disease Active [facility] bile duct bile duct [facility] - calculus calculus 00:00: Medica l 00 Center Abdominal Abdominal Disease Active [facility] pain pain 6-28 [facility] - 00:[facility]: Medical 00 Center New onset New onset Problem Active [...] ity of headache headache [place] [facility] Hypertensi Hypertensi Disease Active [facility] Diabetes Diabetes Disease Active [facility] mellitus mellitus [facility] Allergies, Adverse Reactions, Alerts This patient has no known allergies or adverse reactions. Family History Family Member Diagnosis Comments Start Date Stop Date Source Father Family history of [facility] [place] lung cancer Physicians Social History Social Habit Start Date Stop Date Quantity Comments Source Exposure to Not sure [address] (event) Sex Assigned At [facility] Tobacco use and 2021-05-07 2021-05-07 Never used [facility] - exposure 00:00:00 00:00:00 [facility] Alcohol intake 2021-05-07 2021-05-07 Ex-drinker [facility] es - 00:00:00 00:00:00 (finding) [facility] Smoking Status Start Date Stop Date Source Never smoker [facility] Medications Ordered Filled Start Stop Current Ordering Indication Dosage Frequency Signature Comments Components Source Medication Medication Date Date Medication? Clinician (SIG) Name Name ALPRAZolam Yes 2mg Take [address] (XANAX) 2 - by mouth [facility] - MG tablet 10:59: every Medical 53 night as Center needed for Sleep. pantoprazol Yes 40mg QD Take [address] [facility] e 8-26 by mouth [facility] - (PROTONIX) 10:59: daily. Medic al 40 MG 53 Center tablet citalopram Yes 20mg QD Take [address] (CeleXA) 20 8-26 by mouth [facility] - MG tablet 10:59: daily. Medica l 53 Center risperiDONE Yes .5mg QD Take 0.[address] (RisperDAL) 8-26 mg by [facility] - 0.5 MG 10:59: mouth Medical tablet 53 nightly. Center traMADoL Yes 50mg Take [address] [facility] (ULTRAM) 50 8-26 by mouth [facility] - mg tablet 10:59: every 8 Medic al 53 (eight) Center hours as needed for Pain. famotidine Yes 20mg Q.5D Take [address] (PEPCID) 20 8-26 by mouth 2 [facility] - MG tablet 10:59: (two) Medical 53 times Center daily. omega-3 Yes 2g Q.5D Take [address] [facility] fatty 8-26 by mouth 2 [facility] - acids-fish 10:59: (two) Medica l oil 53 times Center 340-1,000 daily. mg Cap per capsule cholecalcif Yes 5000U QD Take 5,[address] [facility] slim 8-26 Units by [facility] - (VITAMIN 10:59: mouth Medical D3) 25 mcg 53 daily. Center (1,000 unit) tablet lisinopriL Yes 10mg QD Take [address] (PRINIVIL,Z 8-26 by mouth [facility] - ESTRIL) 10 10:59: daily. Medic al MG tablet 53 Center linaCLOtide Yes 145ug Take [address] (Linzess) 8-26 mcg by [facility] - 145 mcg Cap 10:59: mouth Medic al 53 every Center morning before breakfast. lubiproston Yes 24ug QD Take [address] (AMITIZA) 8-26 mcg by [facility] - 24 MCG 10:59: mouth Medical capsule 53 daily. Center alendronate Yes 70mg Take [address] [facility] (FOSAMAX) 8-26 by mouth [facility] - 70 MG 10:59: every 7 Medical tablet 53 days Take Center in the morning with a full glass of water, on an empty stomach, and do not take anything else by mouth or lie down for the next 30 min. . HYDROcodone Yes 1{tbl} Q.[id number] Take [address] [facility] [address] -acetaminop 8-26 [id number] tablet by [facility] - hen (NORCO 10:59: 3D mouth 3 Medi josephine 5-325) 53 (three) Center 5-325 mg times per tablet daily. ursodioL Yes 500mg QD Take [address] (ACTIGALL) 8-26 mg by [facility] - 500 MG 10:59: mouth Medical tablet 53 daily. Center ALPRAZolam Yes 2mg Take [address] (XANAX) 2 8-26 by mouth [facility] - MG tablet 10:59: every Medical 53 night as Center needed for Sleep. pantoprazol Yes 40mg QD Take [address] [facility] e 8-26 by mouth [facility] - (PROTONIX) 10:59: daily. Medic al 40 MG 53 Center tablet citalopram Yes 20mg QD Take [address] (CeleXA) 20 8-26 by mouth [facility] - MG tablet 10:59: daily. Medica l 53 Center risperiDONE Yes .5mg QD Take 0.[address] (RisperDAL) 8-26 mg by [facility] - 0.5 MG 10:59: mouth Medical tablet 53 nightly. Center traMADoL Yes 50mg Take [address] [facility] (ULTRAM) 50 8-26 by mouth [facility] - mg tablet 10:59: every 8 Medic al 53 (eight) Center hours as needed for Pain. famotidine Yes 20mg Q.5D Take [address] (PEPCID) 20 8-26 by mouth 2 Jasmyn kes - MG tablet 10:59: (two) Medical 53 times Center daily. omega-3 Yes 2g Q.5D Take [address] fatty 8-26 by mouth 2 [facility] - acids-fish 10:59: (two) Medica l oil 53 times Center 340-1,000 daily. mg Cap per capsule cholecalcif 2021-0 Yes 5000U QD Take 5,[address] [address] slim 8-26 Units by [facility] - (VITAMIN 10:59: mouth Medical D3) 25 mcg 53 daily. Center (1,000 unit) tablet lisinopriL Yes 10mg QD Take [address] (PRINIVIL,Z 8-26 by mouth [facility] - ESTRIL) 10 10:59: daily. Medic al MG tablet 53 Center linaCLOtide Yes 145ug Take [address] (Linzess) 8-26 mcg by [facility] - 145 mcg Cap 10:59: mouth Medic al 53 every Center morning before breakfast. lubiproston Yes 24ug QD Take [address] (AMITIZA) 8-26 mcg by [facility] - 24 MCG 10:59: mouth Medical capsule 53 daily. Center alendronate Yes 70mg Take [address] [facility] (FOSAMAX) 8-26 by mouth [facility] - 70 MG 10:59: every 7 Medical tablet 53 days Take Center in the morning with a full glass of water, on an empty stomach, and do not take anything else by mouth or lie down for the next 30 min. . HYDROcodone Yes 1{tbl} Q.[id number] Take [address] [facility] [address] -acetaminop 8-26 [id number] tablet by [facility] - hen (NORCO 10:59: 3D mouth 3 Medi josephine 5-325) 53 (three) Center 5-325 mg times per tablet daily. ursodioL Yes 500mg QD Take [address] (ACTIGALL) 8-26 mg by [facility] - 500 MG 10:59: mouth Medical tablet 53 daily. Center ALPRAZolam Yes 2mg Take [address] (XANAX) 2 8-26 by mouth [facility] - MG tablet 10:59: every Medical 53 night as Center needed for Sleep. pantoprazol Yes 40mg QD Take [address] [facility] e 8-26 by mouth [facility] - (PROTONIX) 10:59: daily. Medic al 40 MG 53 Center tablet citalopram Yes 20mg QD Take [address] (CeleXA) 20 8-26 by mouth [facility] - MG tablet 10:59: daily. Medica l 53 Center risperiDONE Yes .5mg QD Take 0.[address] (RisperDAL) 8-26 mg by [facility] - 0.5 MG 10:59: mouth Medical tablet 53 nightly. Center traMADoL Yes 50mg Take [address] [facility] (ULTRAM) 50 8-26 by mouth [facility] - mg tablet 10:59: every 8 Medic al 53 (eight) Center hours as needed for Pain. famotidine Yes 20mg Q.5D Take [address] (PEPCID) 20 8-26 by mouth 2 Jasmyn kes - MG tablet 10:59: (two) Medical 53 times Center daily. omega-3 Yes 2g Q.5D Take [address] fatty 8-26 by mouth 2 [facility] - acids-fish 10:59: (two) Medica l oil 53 times Center 340-1,000 daily. mg Cap per capsule cholecalcif Yes 5000U QD Take 5,[address] slim 8-26 Units by [facility] - (VITAMIN 10:59: mouth Medical D3) 25 mcg 53 daily. Center (1,000 unit) tablet lisinopriL Yes 10mg QD Take [address] (PRINIVIL,Z 8-26 by mouth [facility] - ESTRIL) 10 10:59: daily. Medic al MG tablet 53 Center linaCLOtide Yes 145ug Take [address] (Linzess) 8-26 mcg by [facility] - 145 mcg Cap 10:59: mouth Medic al 53 every Center morning before breakfast. lubiproston Yes 24ug QD Take [address] (AMITIZA) 8-26 mcg by [facility] - 24 MCG 10:59: mouth Medical capsule 53 daily. Locust alendronate Yes 70mg Take [address] [facility] (FOSAMAX) 8-26 by mouth [facility] - 70 MG 10:59: every 7 Medical tablet 53 days Take Center in the morning with a full glass of water, on an empty stomach, and do not take anything else by mouth or lie down for the next 30 min. . HYDROcodone Yes 1{tbl} Q.[id number] Take [address] [address] -acetaminop 8-26 [id number] tablet by [facility] - hen (NORCO 10:59: 3D mouth 3 Medi josephine 5-325) 53 (three) Center 5-325 mg times per tablet daily. ursodioL Yes 500mg QD Take [address] (ACTIGALL) 8-26 mg by [facility] - 500 MG 10:59: mouth Medical tablet 53 daily. Center ALPRAZolam Yes 2mg Take [address] (XANAX) 2 8-26 by mouth [facility] - MG tablet 09:40: every Medical 47 night as Center needed for Sleep. pantoprazol Yes 40mg QD Take [address] [facility] [facility] e 8-26 by mouth [facility] - (PROTONIX) 09:40: daily. Medic al 40 MG 47 Center tablet citalopram Yes 20mg QD Take [address] (CeleXA) 20 8-26 by mouth [facility] - MG tablet 09:40: daily. Medica l 47 Center risperiDONE Yes .5mg QD Take 0.[address] (RisperDAL) 8-26 mg by [facility] - 0.5 MG 09:40: mouth Medical tablet 47 nightly. Center traMADoL Yes 50mg Take [address] (ULTRAM) 50 8-26 by mouth [facility] - mg tablet 09:40: every 8 Medic al 47 (eight) Center hours as needed for Pain. famotidine Yes 20mg Q.5D Take [address] (PEPCID) 20 8-26 by mouth 2 Jasmyn kes - MG tablet 09:40: (two) Medical 47 times Center daily. omega-3 Yes 2g Q.5D Take [address] fatty 8-26 by mouth 2 [facility] - acids-fish 09:40: (two) Medica l oil 47 times Center 340-1,000 daily. mg Cap per capsule cholecalcif 0 Yes 5000U QD Take 5,[address] slim 8-26 Units by [facility] - (VITAMIN 09:40: mouth Medical D3) 25 mcg 47 daily. Center (1,000 unit) tablet lisinopriL Yes 10mg QD Take [address] (PRINIVIL,Z 8-26 by mouth [facility] - ESTRIL) 10 09:40: daily. Medic al MG tablet 47 Center linaCLOtide Yes 145ug Take [address] (Linzess) 8-26 mcg by [facility] - 145 mcg Cap 09:40: mouth Medic al 47 every Center morning before breakfast. lubiproston Yes 24ug QD Take [address] (AMITIZA) 8-26 mcg by [facility]ukes - 24 MCG 09:40: mouth Medical capsule 47 daily. Locust alendronate Yes 70mg Take [address] [facility] (FOSAMAX) 8-26 by mouth [facility] - 70 MG 09:40: every 7 Medical tablet 47 days Take Center in the morning with a full glass of water, on an empty stomach, and do not take anything else by mouth or lie down for the next 30 min. . HYDROcodone Yes 1{tbl} Q.[id number] Take [address] [address] -acetaminop 8-26 [id number] tablet by [facility] - hen (NORCO 09:40: 3D mouth 3 Medi josephine 5-325) 47 (three) Center 5-325 mg times per tablet daily. ursodioL Yes 500mg QD Take [address] (ACTIGALL) 8-26 mg by [facility] - 500 MG 09:40: mouth Medical tablet 47 daily. Locust meclizine Yes [facility] (ANTIVERT) 6-21 [facility] - 25 mg 00:00: Medical tablet 00 [place] meclizine Yes [facility] (ANTIVERT) 6-21 [facility] - 25 mg 00:00: Medical tablet 00 [place] meclizine Yes [facility] (ANTIVERT) 6-21 [facility] - 25 mg 00:00: Medical tablet 00 [place] meclizine Yes [facility] (ANTIVERT) 6-21 [facility] - 25 mg 00:00: Medical tablet 00 [place] Nortriptyli Nortriptyli Yes HOLLIE TAKE 1 Univers ne HCl - 25 ne HCl - 25 5-30 DOMENICO MMary CAPSULE AT ity of MG Oral MG [...] 5-23 DIRECTED. ity of Oral Oral 00:00: [place] Capsule Capsule 00 Physici ans ALPRAZolam ALPRAZolam [...] TAKE 1.5 Univers Sulfate 30 Sulfate 30 5-23 TABLET i ty of MG Oral MG Oral 00:00: TWICE [place] Tablet Tablet 00 DAILY Physici ans MethylPREDN MethylPREDN Yes HOLLIE Medeusebio Univers ISolone 4 ISolone 4 5-23 DOMENICO Michelle dose lior ity of MG Oral MG Oral 00:00: (24 mg [place] Tablet Tablet 00 with Physici Therapy Therapy tapering ans Pack Pack dose to 4 mg over 6 days) MDD:24mg Vital Signs Vital Name Observation Time Observation Value Comments Source Systolic blood 2021-05-07 156 mm[Hg] [facility] - pressure 08:00:00 [facility] Diastolic blood 2021-05-07 74 mm[Hg] [facility] - pressure 08:00: [facility] Heart rate 2021-05-07 76 /min [facility] - 08:00:00 [facility] Body temperature 2021-05-[address] [address] [facility] - 08:00:00 [facility] Respiratory rate 2021-05-07 17 /min [facility] - 08:00: [facility] Oxygen saturation 2021-05-07 97 /min [facility] es - in Arterial blood 08:00:00 [facility] nter by Pulse oximetry Body height 2021-05-04 152.4 cm [facility] - 17:29:00 [facility] Body weight 2021-05-04 61.689 kg [facility] - 17:29:00 [facility] BMI 2021-05-04 26.56 kg/m2 [facility] 17:29:00 [facility] BP Systolic 2018-02-01 131 mm[Hg] Location: [facility] 08:36:00 Position: [place] [facility] Sitting BP Diastolic 2018-02-01 78 mm[Hg] Location: [facility] 08:36:00 Position: [place] [facility] Sitting Height 2018-02-01 60 [in_us] [facility] 08:36:00 [place] [facility] Weight 2018-02-01 117 [lb_av] [facility] 08:36:00 [place] [facility] Body Mass Index 2018-02-01 22.85 kg/m2 [facility] Calculated 08:36:00 [place] [facility] Heart Rate 2018-02-01 73 /min Location: R [facility] 08:36:00 Brachial [place] [facility] Artery; Procedures Procedure Date / Time Performing Clinician Source Performed REPORT OF PROCEDURE - 2021-05-06 16:07:30 Juan Alberto Shelton [facility] ERCP,DIRECT VISUALIZATION 2021-05-06 15:00:00 Juan Alberto Shelton [facility] PROCEDURE W/ C-ARM 2021-05-06 15:00:00 Juan Alberto Shelton [facility] ERCP,BALLOON SWEEPING 2021-05-06 15:00:00 Juan Alberto Shelton [facility] BASIC METABOLIC PANEL (7) 2021-05-06 05:51:00 [facility] HEPATIC FUNCTION PANEL 2021-05-06 05:51:00 [facility] CBC W/PLT COUNT & AUTO 2021-05-06 05:51:00 [facility] DIFFERENTIAL [facility] ABORH, MANUAL 2021-05-05 05:07:00 Zunilda Rubin [facility] PROTHROMBIN TIME/INR 2021-05-05 04:14:00 [facility] TYPE AND SCREEN, 2021-05-05 04:14:00 [facility] es - AUTOMATED [facility] SARS-COV2/RT-PCR ([facility] & 2021-05-05 00:18:[address] [facility] - REF LABS) [facility] BLOOD GAS, VENOUS 2021-05-05 00:14:00 [facility] KETONE, BLOOD 2021-05-05 00:14:00 [facility] HIGH SENSITIVITY TROPONIN 2021-05-05 00:14:00 [facility] INTERPRETATION 2021-05-04 23:15:17 [facility] BASIC METABOLIC PANEL (7) 2021-05-04 21:30:00 Cherie Faustin [facility] HEPATIC FUNCTION PANEL 2021-05-04 21:30:00 [facility] AMYLASE 2021-05-04 21:30:00 Roxie [facility] LIPASE 2021-05-04 21:30[facility]00 [facility] CBC W/PLT COUNT & AUTO 2021-05-04 19:37:00 [facility] ECG 12-LEAD 2021-05-04 19:22:33 [facility] POCT-GLUCOSE METER 2021-03-11 08:21:00 Jessica Boone [facility] COMPREHENSIVE METABOLIC 2021-03-11 06:09:00 Clive Alfredo [facility] REPORT OF PROCEDURE - 2021-03-10 23:43:51 Othman, [facility] - ENDOSCOPY URL [facility] POCT-GLUCOSE METER 2021-03-10 16:43:00 [facility] POCT-GLUCOSE METER 2021-03-10 12:45:00 [facility] [place] ERCP 2021-03-10 12:02:00 Desiree Duggan [facility] ERCP,PAPILLOTOMY 2021-03-10 11:31:00 [facility] PROCEDURE W/ C-ARM 2021-03-10 11:31:00 [place]anti[place]ovan [facility] ERCP,BALLOON SWEEPING 2021-03-10 11:31:00 [facility] POCT-GLUCOSE METER 2021-03-10 09:07:00 [facility] CBC (HEMOGRAM ONLY) 2021-03-10 04:50:00 [facility] COMPREHENSIVE METABOLIC 2021-03-10 04:50:00 [facility] HEMOGLOBIN A1C 2021-03-10 04:50:00 [facility] POCT-GLUCOSE METER 2021-03-09 23:54:00 [facility]OV2[facility] ([facility] & 2021-03-09 20:13:00 Desiree Duggan [facility] - REF LABS) [facility] POCT-GLUCOSE METER 2021-03-09 17:22:00 [facility] MR ABDOMEN WITHOUT IV 2021-03-09 15:38:00 [facility] - [facility] POCT-GLUCOSE METER 2021-03-09 12:22:00 [facility] URINALYSIS W/ REFLEX 2021-03-09 10:56:00 [place] [facility] URINE CULTURE [facility] HEPATIC FUNCTION PANEL 2021-03-09 05:25:00 [place] [facility] PROTHROMBIN TIME/INR 2021-03-09 05:25:00 [place] Clive [facility] MAGNESIUM 2021-03-09 05:25:[address] [place] [facility] BASIC METABOLIC PANEL (7) 2021-03-09 05:25:00 [place] Clive I [facility] CBC W/PLT COUNT & AUTO 2021-03-09 05:25:00 [place] Clive [facility] HEMOGLOBIN A1C 2021-03-09 05:25:00 [facility] MRI Brain wo contrast 2018-02-08 00:00:00 [facility] [id number] Physicians MRI Brain w/wo contrast 2018-02-01 00:00:00 [facility] [id number] Physicians History of Gallbladder [facility] surgery Physicians Plan of Care Planned Activity Planned Date Details Comments Source Future Scheduled 2021-09-[address] [facility] - Test 00:00:00 measurement Medical Center (procedure) [code = 11204517] Future Scheduled 2021-09-[address] [facility] - Test 00:00:00 measurement Medical Center (procedure) [code = 76744220] Future Scheduled 2021-09-[address] [facility] - Test 00:00:00 measurement Medical Center (procedure) [code = 88602101] Future Scheduled 2021-09-[address] [facility] - Test 00:00:00 measurement Medical Center (procedure) [code = 12251543] Future Scheduled 2021-05-13 INFLUENZA VACCINE (#1) [facility] Test 00:00:00 [code = INFLUENZA Medical Ce nter VACCINE (#1)] Future Scheduled 2021-05-13 INFLUENZA VACCINE (#1) [facility] - Test 00:00:00 [code = INFLUENZA Medical Ce nter VACCINE (#1)] Future Scheduled 2021-05-13 INFLUENZA VACCINE (#1) [facility] - Test 00:00:00 [code = INFLUENZA Medical Ce nter VACCINE (#1)] Future Scheduled 2021-05-13 INFLUENZA VACCINE (#1) [facility] - Test 00:00:00 [code = INFLUENZA Medical Ce nter VACCINE (#1)] Future Scheduled 2013 PNEUMOCOCCAL 65+ YRS [facility] - Test 00:00:00 (1 of 1 - Medical Center [id number] PCV13) [code = PNEUMOCOCCAL 65+ YRS (1 of 1 - [id number] PCV13)] Future Scheduled 2013 PNEUMOCOCCAL 65+ YRS [facility] - Test 00:00:00 (1 of 1 - Medical Center [id number] PCV13) [code = PNEUMOCOCCAL 65+ YRS (1 of 1 - [id number] PCV13)] Future Scheduled 2013 PNEUMOCOCCAL 65+ YRS [facility] - Test 00:00:00 (1 of 1 - Medical Center [id number] PCV13) [code = PNEUMOCOCCAL 65+ YRS (1 of 1 - [id number] PCV13)] Future Scheduled 2013 PNEUMOCOCCAL 65+ YRS [facility] - Test 00:00:00 (1 of 1 - Medical Center [id number] PCV13) [code = PNEUMOCOCCAL 65+ YRS (1 of 1 - [id number] PCV13)] Future Scheduled 2004-10-[address] [facility] - Test 00:00:00 WELLNESS (YEAR 2 or Medical Center FIRST YEAR if no IPPE) [code = MEDICARE ANNUAL WELLNESS (YEAR 2 or FIRST YEAR if no IPPE)] Future Scheduled 2004-10-[address] [facility] - Test 00:00:00 WELLNESS (YEAR 2 or Medical Center FIRST YEAR if no IPPE) [code = MEDICARE ANNUAL WELLNESS (YEAR 2 or FIRST YEAR if no IPPE)] Future Scheduled 2004-10-[address] [facility] - Test 00:00:00 WELLNESS (YEAR 2 or Medical Center FIRST YEAR if no IPPE) [code = MEDICARE ANNUAL WELLNESS (YEAR 2 or FIRST YEAR if no IPPE)] Future Scheduled 2004-10-[address] [facility] - Test 00:00:00 WELLNESS (YEAR 2 or Medical Center FIRST YEAR if no IPPE) [code = MEDICARE ANNUAL WELLNESS (YEAR 2 or FIRST YEAR if no IPPE)] Future Scheduled 1998 SHINGLES VACCINES ([address] [facility] - Test 00:00:00 of 2) [code = SHINGLES Medic al Center VACCINES (1 of 2)] Future Scheduled 1998 SHINGLES VACCINES ([address] [facility] - Test 00:00:00 of 2) [code = SHINGLES Medic al Center VACCINES (1 of 2)] Future Scheduled 1998 SHINGLES VACCINES ([address] [facility] - Test 00:00:00 of 2) [code = SHINGLES Medic al Center VACCINES (1 of 2)] Future Scheduled 1998 SHINGLES VACCINES ([address] [facility] - Test 00:00:00 of 2) [code = SHINGLES Medic al Center VACCINES (1 of 2)] Future Scheduled 1967 DTAP/TDAP/TD VACCINES [facility] - Test 00:00:00 (1 - Tdap) [code = Medical C enter DTAP/TDAP/TD VACCINES (1 - Tdap)] Future Scheduled 1967 DTAP/TDAP/TD VACCINES [facility] - Test 00:00:00 (1 - Tdap) [code = Medical C enter DTAP/TDAP/TD VACCINES (1 - Tdap)] Future Scheduled 1967 DTAP/TDAP/TD VACCINES [facility] - Test 00:00:00 (1 - Tdap) [code = Medical C enter DTAP/TDAP/TD VACCINES (1 - Tdap)] Future Scheduled 1967 DTAP/TDAP/TD VACCINES [facility] - Test 00:00:00 (1 - Tdap) [code = Medical C enter DTAP/TDAP/TD VACCINES (1 - Tdap)] Future Scheduled 1966 HEPATITIS C [facility]CRE[facility]ING [facility] - Test 00:00:00 [code = HEPATITIS C Medical Center SCREENING] Future Scheduled 1966 HEPATITIS C [facility]ING [facility] Test 00:00:00 [code = HEPATITIS C Medical Center SCREENING] Future Scheduled 1966 HEPATITIS C [facility]CRE[facility]ING [facility] - Test 00:00:00 [code = HEPATITIS C Medical Center SCREENING] Future Scheduled 1966 HEPATITIS C [facility]CRE[facility]ING [facility] Test 00:00:00 [code = HEPATITIS C Medical Center SCREENING] Future Scheduled [address] DIABETIC EYE EXAM [facility] - Test 00:00:00 [code = DIABETIC EYE Medical Center EXAM] Future Scheduled [address] [facility] - Test 00:00:00 examination Medical Center (regime/therapy) [code = 461653561] Future Scheduled 1958 Urine screening for [facility] - Test 00:00:00 protein (procedure) Medical Center [code = 679005788] Future Scheduled 1958 DIABETIC EYE EXAM [facility] - Test 00:00:00 [code = DIABETIC EYE Medical Center EXAM] Future Scheduled [address] [facility] - Test 00:00:00 examination Medical Center (regime/therapy) [code = 600045905] Future Scheduled 1958 Urine screening for [facility] - Test 00:00:00 protein (procedure) Medical Center [code = 402198392] Future Scheduled 1958 DIABETIC EYE EXAM [facility] - Test 00:00:00 [code = DIABETIC EYE Medical Center EXAM] Future Scheduled [address] [facility] - Test 00:00:00 examination Medical Center (regime/therapy) [code = 593750860] Future Scheduled 1958 Urine screening for [facility] - Test 00:00:00 protein (procedure) Medical Center [code = 703383942] Future Scheduled 1958 DIABETIC EYE EXAM [facility] - Test 00:00:00 [code = DIABETIC EYE Medical Center EXAM] Future Scheduled [address] [facility] - Test 00:00:00 examination Medical Center (regime/therapy) [code = 293722392] Future Scheduled 1958 Urine screening for [facility] - Test 00:00:00 protein (procedure) Medical Center [code = 654306034] Future Scheduled [address] [facility] - Test 00:00:00 malignant neoplasm of Medica l Center breast (procedure) [code = 652393664] Future Scheduled [address] [facility] - Test 00:00:00 malignant neoplasm of Medica l Center colon (procedure) [code = 132322941] Future Scheduled [address] [facility] - Test 00:00:00 [facility] breast (procedure) [code = 372295374] Future Scheduled [address] [facility] 00:[facility]:00 [facility] colon (procedure) [code = 041746520] Future Scheduled [address] [facility] Test 00:00:00 [facility] breast (procedure) [code = 607238354] Future Scheduled [address] [facility] Test 00:00:00 [facility] colon (procedure) [code = 263711421] Future Scheduled [address] [facility] Test 00:00:00 [facility] breast (procedure) [code = 985214960] Future Scheduled [address] [facility] Test 00:00:00 [facility] colon (procedure) [code = 647591044] Encounters Start End Encounter Admission Attending Care Care Encounter Source Date/Time Date/Time Type Type Clinicians Facility Department ID 2021-05-04 2021-05-07 [facility] [id number] [facility] 10:59:00 [facility] 2021-05-04 2021-05-07 [facility] [id number] 17[facility]37[facility] 10:59:00 [facility] 2021-05-06 2021-05-06 Anesthesia Denise Quispe [facility] [id number] [facility] 15:10:00 16:27:00 Event Jm Rushing [facility] 2021-05-06 2021-05-06 Anesthesia Denise Quispe [facility] [id number] [facility] 15:10:00 16:27:00 Event Jm Rushing [facility] 2021-05-06 2021-05-06 Surgery [place], [facility] [id number] 13:00:00 14:30:00 [facility] 2021-05-06 2021-05-06 Surgery [place], [facility] [id number] 13:00:00 14:30:00 [facility] 2021-05-05 2021-05-05 Travel [facility] [id number] [facility] 00:[facility]:00 [facility] 2021-05-05 2021-05-05 Travel [facility] [id number] [facility] 00:[facility]:00 [facility] 2021-05-04 2021-05-04 Orders [facility] [id number] 00:00:00 00:00:00 Only [facility] 2021-05-04 2021-05-04 Travel [facility] [id number] [facility] 00:[facility]:00 [facility] 2021-05-04 2021-05-04 Orders [facility] [id number] 00:00:00 00:00:00 Only [facility] 2021-05-04 2021-05-04 Travel [facility] [id number] [facility] 00:[facility]:00 [facility] 2021-05-01 2021-05-01 Emergency E [facility] [id number] [facility] 16:21:00 16:21:00 2021-03-13 2021-03-13 Telephone Ezequiel [facility] [id number] 00:00[facility]00 00:00:00 [facility] 2021-03-13 2021-03-13 Telephone Ezequiel [facility] [id number] 00:00:00 00:00:00 [facility] 2021-03-08 2021-03-11 [facility] [id number] 23:13:00 11:35:00 Encounter uHmzaBret [facility] 2021-03-08 2021-03-11 [facility] [id number] 23:13:00 11:35:00 Encounter SeveroBret smith [facility] 2021-03-10 2021-03-10 [facility] [id number] 11:00:00 12:30:00 [facility] 2021-03-10 2021-03-10 [facility] [id number] 11:00:00 12:30:00 [facility] 2021-03-10 2021-03-10 [facility] [id number] 11:36:00 12:27:00 Event Graciela [facility] 2021-03-10 2021-03-10 [facility] [id number] 11:36:00 12:27:00 Event [facility]a [facility] 2018-02-01 2018-02-01 [facility] DOMENICO [facility] [id number] 08:00:00 08:00:00 HOLLIE [facility], M.D. [place] M.D. Physici ans Results Test Description Test Time Test Comments Results Result Comments Source Basic metabolic panel 2021-05-06 07:08:00 Test Item Value Reference Range Interpretation Comme nts Sodium (test code = 139 meq/L 115-951 4995-2) Potassium (test code = 4.1 meq/L 3.5-5.1 2823-3) Chloride (test code = 107 meq/L 98-107 5-0) CO2 (test code = 25 meq/L 2028-05) BUN (test code = 13 mg/dL 04-01 3094-0) Creatinine (test code = 0.97 mg/dL 0.57-1.25 2160-0) Glucose (test code = 80 mg/dL 70-105 2345-7) Calcium (test code = 8.9 mg/dL 8.4-10.2 50514-0) EGFR (test code = 56 mL/min/1.[address] [place] [address]-1) ACCURATE CREATININE MYCHAL SYEDA IN PREDICTING GLOMERULAR FILT RATION RATE. ESTIMATED GFR IS NOT APPLICABLE FOR DIALYSIS PATIEN TORRES (test code = TORRES) Towel Sewer ID - PIAYA L [facility] [id number] 07:08:00 Test Item Value Reference Range Interpretation Comments Protein, Total (test 6.9 See_Comment [Autom ated code = 2885-2) message] The system which generated this result transmit lane reference range : 6.0 - 8.3 gm/dL . The reference range was not u sed to interpret th is result as normal/abnormal . Albumin (test code = 3.6 g/dL 3.5-5 62406-8) Total Bilirubin (test 0.3 mg/dL 0.2-1.2 code = 1975-2) Bilirubin, Direct 0.2 mg/dL 0.1-0.5 (test code = 1967-7) Alkaline Phosphatase 56 U/L 40-150 (test code = 6768-6) AST (test code = 37 U/L 5-34 H 1920-8) ALT (test code = 50 U/L 6-55 1742-6) TORRES (test code = TORRES) Towel Sewer ID - PIAYA L Lab Interpretation Abnormal (test code = 77441-4) [facility] [id number] 07:08:00 Test Item Value Reference Range Interpretation Comments Sodium (test code = 139 meq/L 360-222 0469-2) Potassium (test 4.1 meq/L 3.5-5.1 code = 2823-3) Chloride (test code 107 meq/L 98-107 = 2075-0) CO2 (test code = 25 meq/L 22-29 8-9) BUN (test code = 13 mg/dL 04-01 3094-0) Creatinine (test 0.97 mg/dL 0.57-1.25 code = 2160-0) Glucose (test code 80 mg/dL 70-105 = 2345-7) Calcium (test code 8.9 mg/dL 8.4-10.2 = 59220-9) EGFR (test code = 56 mL/min/1.[address] [place] [address]-7) NOT ACCURATE CREATININE CLEARANCE IN PREDICTING GLOMERULAR FILTRATION RATE . ESTIMATED GFR I S NOT APPLICABLE FOR DIALYSIS PATIEN TORRES (test code = Towel Sewer ID - TORRES) TOÑITO Camacho [facility] [id number] 07:08:00 Test Item Value Reference Range Interpretation Comments Protein, Total (test 6.9 See_Comment [Autom ated code = 2885-2) message] The system which generated this result transmit lane reference range : 6.0 - 8.3 gm/dL . The reference range was not u sed to interpret th is result as normal/abnormal . Albumin (test code = 3.6 g/dL 3.5-5 30765-6) Total Bilirubin (test 0.3 mg/dL 0.2-1.2 code = 1975-2) Bilirubin, Direct 0.2 mg/dL 0.1-0.5 (test code = 1968-7) Alkaline Phosphatase 56 U/L 40-150 (test code = 6768-6) AST (test code = 37 U/L 5-34 H 1920-8) ALT (test code = 50 U/L 6-55 1742-6) TORRES (test code = TORRES) Towel Sewer ID - TOÑITO Camacho Lab Interpretation Abnormal (test code = 87729-3) [facility] [id number] 07:08:00 Test Item Value Reference Range Interpretation Comments Sodium (test code = 139 meq/L 654-923 1938-2) Potassium (test 4.1 meq/L 3.5-5.1 code = 2823-3) Chloride (test code 107 meq/L 98-107 = 5-0) CO2 (test code = 25 meq/L 22-29 8-9) BUN (test code = 13 mg/dL 7-21 3094-0) Creatinine (test 0.97 mg/dL 0.57-1.25 code = 2160-0) Glucose (test code 80 mg/dL 70-105 = 2345-7) Calcium (test code 8.9 mg/dL 8.4-10.2 = 17438-9) EGFR (test code = 56 mL/min/1.[address] [place] [address]-4) NOT ACCURATE CREATININE CLEARANCE IN PREDICTING GLOMERULAR FILTRATION RATE . ESTIMATED GFR I S NOT APPLICABLE FOR DIALYSIS PATIEN TORRES (test code = Towel Sewer ID - TORRES) TOÑITO Camacho [facility] [id number] 07:08:00 Test Item Value Reference Range Interpretation Comments Protein, Total (test 6.9 See_Comment [Autom ated code = 2885-2) message] The system which generated this result transmit lane reference range : 6.0 - 8.3 gm/dL . The reference range was not u sed to interpret th is result as normal/abnormal . Albumin (test code = 3.6 g/dL 3.5-5 40486-4) Total Bilirubin (test 0.3 mg/dL 0.2-1.2 code = 1974-2) Bilirubin, Direct 0.2 mg/dL 0.1-0.5 (test code = 1967-7) Alkaline Phosphatase 56 U/L 40-150 (test code = 6768-6) AST (test code = 37 U/L 5-34 H 1920-8) ALT (test code = 50 U/L 6-55 1742-6) TORRES (test code = TORRES) Towel Sewer ID - TOÑITO Camacho Lab Interpretation Abnormal (test code = 87407-5) [facility] [id number] 07:08:00 Test Item Value Reference Range Interpretation Comments Sodium (test code = 139 meq/L 879-112 6910-2) Potassium (test 4.1 meq/L 3.5-5.1 code = 2823-3) Chloride (test code 107 meq/L 98-107 = 2075-0) CO2 (test code = 25 meq/L 22-29 2027-9) BUN (test code = 13 mg/dL 7-21 3094-0) Creatinine (test 0.97 mg/dL 0.57-1.25 code = 2160-0) Glucose (test code 80 mg/dL 70-105 = 2345-7) Calcium (test code 8.9 mg/dL 8.4-10.2 = 63891-1) EGFR (test code = 56 mL/min/1.[address] [place] [address]-3) NOT ACCURATE CREATININE CLEARANCE IN PREDICTING GLOMERULAR FILTRATION RATE . ESTIMATED GFR I S NOT APPLICABLE FOR DIALYSIS PATIEN TORRES (test code = Towel Sewer ID - TORRES) TOÑITO Camacho [facility] [id number] 07:08:00 Test Item Value Reference Range Interpretation Comments Protein, Total (test 6.9 See_Comment [Autom ated code = 2885-2) message] The system which generated this result transmit lane reference range : 6.0 - 8.3 gm/dL . The reference range was not u sed to interpret th is result as normal/abnormal . Albumin (test code = 3.6 g/dL 3.5-5 81298-5) Total Bilirubin (test 0.3 mg/dL 0.2-1.2 code = 1974-2) Bilirubin, Direct 0.2 mg/dL 0.1-0.5 (test code = 1968-7) Alkaline Phosphatase 56 U/L 40-150 (test code = 6768-6) AST (test code = 37 U/L 5-34 H 1920-8) ALT (test code = 50 U/L 6-55 1742-6) TORRES (test code = TORRES) Towel Sewer ID - TOÑITO Camacho Lab Interpretation Abnormal (test code = 78272-7) [facility] [id number] 07:08:00 Test Item Value Reference Range Interpretation Comments SODIUM (BEAKER) 139 meq/L 136-145 (test code = 381) POTASSIUM (BEAKER) 4.1 meq/L 3.5-5.1 (test code = 379) CHLORIDE (BEAKER) 107 meq/L 98-107 (test code = 382) CO2 (BEAKER) (test 25 meq/L 22-29 code = 355) BLOOD UREA NITROGEN 13 mg/dL 7-21 (BEAKER) (test code = 354) CREATININE (BEAKER) 0.97 mg/dL 0.57-1.25 (test code = 358) GLUCOSE RANDOM 80 mg/dL 70-105 (BEAKER) (test code = 652) CALCIUM (BEAKER) 8.9 mg/dL 8.4-10.2 (test code = 697) EGFR (BEAKER) (test 56 mL/min/1.[address] GFR IS code = 1092) sq m NOT ACCURATE CREATININE CLEARANCE IN PREDICTING GLOMERULAR FILTRATION RATE . ESTIMATED GFR I S NOT APPLICABLE FOR DIALYSIS PATIEN TS. Towel Sewer ID - PIJOVANNI LHEPATIC FUNCTION [id number] 07:08:00 Test Item Value Reference Range Interpretation Comments TOTAL PROTEIN (BEAKER) (test code = 6.9 gm/dL 6.0-8.3 770) ALBUMIN (BEAKER) (test code = 1145) 3.6 g/dL 3.5-5.0 BILIRUBIN TOTAL (BEAKER) (test code 0.3 mg/dL 0.2-1.2 = 377) BILIRUBIN DIRECT (BEAKER) (test 0.2 mg/dL 0.1-0.5 code = 706) ALKALINE PHOSPHATASE (BEAKER) (test 56 U/L 40-150 code = 346) AST (SGOT) (BEAKER) (test code = 37 U/L 5-34 H 353) ALT (SGPT) (BEAKER) (test code = 50 U/L 6-55 347) Towel Sewer ID - PIJOVANNI LCBC with platelet count + automated [id number] 06:01:00 Test Item Value Reference Range Interpretation Comments WBC (test code = 6690-2) 7.9 See_Comment [A utomated message] The system Pin or Peg generated this result transmitted ref erence range: 3.5 - 10 .5 K/L. The refe rence range was not u sed to interpret this result as normal/abnor mal. RBC (test code = 789-8) 3.22 See_Comment L [Au tomated message] The system Pin or Peg generated this result transmitted ref erence range: 3.93 - 5 .22 M/L. The refe rence range was not u sed to interpret this result as normal/abnor mal. MCHC (test code = 786-4) 31.8 See_Comment L [A utomated message] The system Pin or Peg generated this result transmitted ref erence range: 32.2 - 3 5.5 GM/DL. The refe rence range was not u sed to interpret this result as normal/abnor mal. Hematocrit (test code = 30.2 % 34.1-44.9 L 4544-3) MCV (test code = 787-2) 93.8 fL 79.4-94.8 MCH (test code = 785-6) 29.8 pg 25.6-32.2 RDW (test code = 788-0) 13.3 % 11.7-14.4 Platelets (test code = 282 See_Comment [Aut omated message] 777-3) The system Pin or Peg generated this result transmitted ref erence range: 150 - 45 0 K/CU MM. The referen ce range was not u sed to interpret this result as normal/abnor mal. MPV (test code = 8.9 fL 9.4-12.3 L 38808-4) nRBC (test code = 413) 0 See_Comment [Aut omated message] The system Pin or Peg generated this result transmitted ref erence range: 0 - 0 /1 00 WBC. The refere nce range was not u sed to interpret this result as normal/abnor mal. % Neutros (test code = 64 % 429) % Lymphs (test code = 28 % 430) % Monos (test code = 7 % 431) % Eos (test code = 432) 1 % % Baso (test code = 437) 0 % # Neutros (test code = 5.05 See_Comment [Aut omated message] 670) The system Pin or Peg generated this result transmitted ref erence range: 1.56 - 6 .13 K/L. The refe rence range was not u sed to interpret this result as normal/abnor mal. # Lymphs (test code = 2.20 See_Comment [Auto mated message] 414) The system Pin or [employer] generated this result transmitted ref erence range: 1.18 - 3 .74 K/L. The refe rence range was not u sed to interpret this result as normal/abnor mal. # Monos (test code = 0.54 See_Comment H [Autom ated message] 415) The system Pin or [employer] generated this result transmitted ref erence range: 0.24 - 0 .36 K/L. The refe rence range was not u sed to interpret this result as normal/abnor mal. # Eos (test code = 416) 0.08 See_Comment [Au tomated message] The system Pin or Peg generated this result transmitted ref erence range: 0.04 - 0 .36 K/L. The refe rence range was not u sed to interpret this result as normal/abnor mal. # Baso (test code = 417) 0.03 See_Comment [A utomated message] The system Pin or Peg generated this result transmitted ref erence range: 0.01 - 0 .08 K/L. The refe rence range was not u sed to interpret this result as normal/abnor mal. Immature 0 % 0-1 Granulocytes-Relative (test code = 2801) Lab Interpretation (test Abnormal code = 86137-4) [facility] with platelet count + automated [id number] 06:01:00 Test Item Value Reference Range Interpretation Comments WBC (test code = 6690-2) 7.9 See_Comment [A utomated message] The system Pin or Peg generated this result transmitted ref erence range: 3.5 - 10 .5 K/L. The refe rence range was not u sed to interpret this result as normal/abnor mal. RBC (test code = 789-8) 3.22 See_Comment L [Au tomated message] The system Pin or Peg generated this result transmitted ref erence range: 3.93 - 5 .22 M/L. The refe rence range was not u sed to interpret this result as normal/abnor mal. MCHC (test code = 786-4) 31.8 See_Comment L [A utomated message] The system Pin or Peg generated this result transmitted ref erence range: 32.2 - 3 5.5 GM/DL. The refe rence range was not u sed to interpret this result as normal/abnor mal. Hematocrit (test code = 30.2 % 34.1-44.9 L 4544-3) MCV (test code = 787-2) 93.8 fL 79.4-94.8 MCH (test code = 785-6) 29.8 pg 25.6-32.2 RDW (test code = 788-0) 13.3 % 11.7-14.4 Platelets (test code = 282 See_Comment [Aut omated message] 777-3) The system Pin or Peg generated this result transmitted ref erence range: 150 - 45 0 K/CU MM. The referen ce range was not u sed to interpret this result as normal/abnor mal. MPV (test code = 8.9 fL 9.4-12.3 L 06625-4) nRBC (test code = 413) 0 See_Comment [Aut omated message] The system Pin or Peg generated this result transmitted ref erence range: 0 - 0 /1 00 WBC. The refere nce range was not u sed to interpret this result as normal/abnor mal. % Neutros (test code = 64 % 429) % Lymphs (test code = 28 % 430) % Monos (test code = 7 % 431) % Eos (test code = 432) 1 % % Baso (test code = 437) 0 % # Neutros (test code = 5.05 See_Comment [Aut omated message] 670) The system Pin or Peg generated this result transmitted ref erence range: 1.56 - 6 .13 K/L. The refe rence range was not u sed to interpret this result as normal/abnor mal. # Lymphs (test code = 2.20 See_Comment [Auto mated message] 414) The system Pin or Peg generated this result transmitted ref erence range: 1.18 - 3 .74 K/L. The refe rence range was not u sed to interpret this result as normal/abnor mal. # Monos (test code = 0.54 See_Comment H [Autom ated message] 415) The system Pin or [employer] generated this result transmitted ref erence range: 0.24 - 0 .36 K/L. The refe rence range was not u sed to interpret this result as normal/abnor mal. # Eos (test code = 416) 0.08 See_Comment [Au tomated message] The system Pin or Peg generated this result transmitted ref erence range: 0.04 - 0 .36 K/L. The refe rence range was not u sed to interpret this result as normal/abnor mal. # Baso (test code = 417) 0.03 See_Comment [A utomated message] The system whic h generated this result transmitted ref erence range: 0.01 - 0 .08 K/L. The refe rence range was not u sed to interpret this result as normal/abnor mal. Immature 0 % 0-1 Granulocytes-Relative (test code = 2801) Lab Interpretation (test Abnormal code = 14746-1) [facility] with platelet count + automated [id number] 06:01:00 Test Item Value Reference Range Interpretation Comments WBC (test code = 6690-2) 7.9 See_Comment [A utomated message] The system Pin or Peg generated this result transmitted ref erence range: 3.5 - 10 .5 K/L. The refe rence range was not u sed to interpret this result as normal/abnor mal. RBC (test code = 789-8) 3.22 See_Comment L [Au tomated message] The system Pin or Peg generated this result transmitted ref erence range: 3.93 - 5 .22 M/L. The refe rence range was not u sed to interpret this result as normal/abnor mal. MCHC (test code = 786-4) 31.8 See_Comment L [A utomated message] The system Pin or Peg generated this result transmitted ref erence range: 32.2 - 3 5.5 GM/DL. The refe rence range was not u sed to interpret this result as normal/abnor mal. Hematocrit (test code = 30.2 % 34.1-44.9 L 4544-3) MCV (test code = 787-2) 93.8 fL 79.4-94.8 MCH (test code = 785-6) 29.8 pg 25.6-32.2 RDW (test code = 788-0) 13.3 % 11.7-14.4 Platelets (test code = 282 See_Comment [Aut omated message] 777-3) The system Pin or Peg generated this result transmitted ref erence range: 150 - 45 0 K/CU MM. The referen ce range was not u sed to interpret this result as normal/abnor mal. MPV (test code = 8.9 fL 9.4-12.3 L 60810-3) nRBC (test code = 413) 0 See_Comment [Aut omated message] The system Pin or Peg generated this result transmitted ref erence range: 0 - 0 /1 00 WBC. The refere nce range was not u sed to interpret this result as normal/abnor mal. % Neutros (test code = 64 % 429) % Lymphs (test code = 28 % 430) % Monos (test code = 7 % 431) % Eos (test code = 432) 1 % % Baso (test code = 437) 0 % # Neutros (test code = 5.05 See_Comment [Aut omated message] 670) The system Pin or Peg generated this result transmitted ref erence range: 1.56 - 6 .13 K/L. The refe rence range was not u sed to interpret this result as normal/abnor mal. # Lymphs (test code = 2.20 See_Comment [Auto mated message] 414) The system Pin or [employer] generated this result transmitted ref erence range: 1.18 - 3 .74 K/L. The refe rence range was not u sed to interpret this result as normal/abnor mal. # Monos (test code = 0.54 See_Comment H [Autom ated message] 415) The system Pin or [employer] generated this result transmitted ref erence range: 0.24 - 0 .36 K/L. The refe rence range was not u sed to interpret this result as normal/abnor mal. # Eos (test code = 416) 0.08 See_Comment [Au tomated message] The system Pin or Peg generated this result transmitted ref erence range: 0.04 - 0 .36 K/L. The refe rence range was not u sed to interpret this result as normal/abnor mal. # Baso (test code = 417) 0.03 See_Comment [A utomated message] The system Pin or Peg generated this result transmitted ref erence range: 0.01 - 0 .08 K/L. The refe rence range was not u sed to interpret this result as normal/abnor mal. Immature 0 % 0-1 Granulocytes-Relative (test code = 2801) Lab Interpretation (test Abnormal code = 11540-6) [facility] with platelet count + automated [id number] 06:01:00 Test Item Value Reference Range Interpretation Comments WBC (test code = 6690-2) 7.9 See_Comment [A utomated message] The system Pin or Peg generated this result transmitted ref erence range: 3.5 - 10 .5 K/L. The refe rence range was not u sed to interpret this result as normal/abnor mal. RBC (test code = 789-8) 3.22 See_Comment L [Au tomated message] The system Pin or Peg generated this result transmitted ref erence range: 3.93 - 5 .22 M/L. The refe rence range was not u sed to interpret this result as normal/abnor mal. MCHC (test code = 786-4) 31.8 See_Comment L [A utomated message] The system Pin or Peg generated this result transmitted ref erence range: 32.2 - 3 5.5 GM/DL. The refe rence range was not u sed to interpret this result as normal/abnor mal. Hematocrit (test code = 30.2 % 34.1-44.9 L 4544-3) MCV (test code = 787-2) 93.8 fL 79.4-94.8 MCH (test code = 785-6) 29.8 pg 25.6-32.2 RDW (test code = 788-0) 13.3 % 11.7-14.4 Platelets (test code = 282 See_Comment [Aut omated message] 777-3) The system Pin or [employer] generated this result transmitted ref erence range: 150 - 45 0 K/CU MM. The referen ce range was not u sed to interpret this result as normal/abnor mal. MPV (test code = 8.9 fL 9.4-12.3 L 72559-4) nRBC (test code = 413) 0 See_Comment [Aut omated message] The system Pin or Peg generated this result transmitted ref erence range: 0 - 0 /1 00 WBC. The refere nce range was not u sed to interpret this result as normal/abnor mal. % Neutros (test code = 64 % 429) % Lymphs (test code = 28 % 430) % Monos (test code = 7 % 431) % Eos (test code = 432) 1 % % Baso (test code = 437) 0 % # Neutros (test code = 5.05 See_Comment [Aut omated message] 670) The system Pin or [employer] generated this result transmitted ref erence range: 1.56 - 6 .13 K/L. The refe rence range was not u sed to interpret this result as normal/abnor mal. # Lymphs (test code = 2.20 See_Comment [Auto mated message] 414) The system [employer] generated this result transmitted ref erence range: 1.18 - 3 .74 K/L. The refe rence range was not u sed to interpret this result as normal/abnor mal. # Monos (test code = 0.54 See_Comment H [Autom ated message] 415) The system [employer] generated this result transmitted ref erence range: 0.24 - 0 .36 K/L. The refe rence range was not u sed to interpret this result as normal/abnor mal. # Eos (test code = 416) 0.08 See_Comment [Au tomated message] The system Pin or [employer] generated this result transmitted ref erence range: 0.04 - 0 .36 K/L. The refe rence range was not u sed to interpret this result as normal/abnor mal. # Baso (test code = 417) 0.03 See_Comment [A utomated message] The system Pin or Peg generated this result transmitted ref erence range: 0.01 - 0 .08 K/L. The refe rence range was not u sed to interpret this result as normal/abnor mal. Immature 0 % 0-1 Granulocytes-Relative (test code = 2801) Lab Interpretation (test Abnormal code = 08741-2) [facility] W/PLT COUNT & AUTO [id number] 06:01:00 Test Item Value Reference Range Interpretation Comments WHITE BLOOD CELL COUNT (BEAKER) 7.9 K/ L 3.5-10.5 (test code = 775) RED BLOOD CELL COUNT (BEAKER) 3.22 M/ L 3.93-5.22 L (test code = 761) HEMOGLOBIN (BEAKER) (test code = 9.6 GM/DL 11.2-15.7 L 410) HEMATOCRIT (BEAKER) (test code = 30.2 % 34.1-44.9 L 411) MEAN CORPUSCULAR VOLUME (BEAKER) 93.8 fL 79.4-94.8 (test code = 753) MEAN CORPUSCULAR HEMOGLOBIN 29.8 pg 25.6-32.2 (BEAKER) (test code = 751) MEAN CORPUSCULAR HEMOGLOBIN CONC 31.8 GM/DL 32.2-35.5 L (BEAKER) (test code = 752) RED CELL DISTRIBUTION WIDTH 13.3 % 11.7-14.4 (BEAKER) (test code = 412) PLATELET COUNT (BEAKER) (test 282 K/CU MM 150-450 code = 756) MEAN PLATELET VOLUME (BEAKER) 8.9 fL 9.4-12.3 L (test code = 754) NUCLEATED RED BLOOD CELLS 0 /100 WBC 0-0 (BEAKER) (test code = 413) NEUTROPHILS RELATIVE PERCENT 64 % (BEAKER) (test code = 429) LYMPHOCYTES RELATIVE PERCENT 28 % (BEAKER) (test code = 430) MONOCYTES RELATIVE PERCENT 7 % (BEAKER) (test code = 431) EOSINOPHILS RELATIVE PERCENT 1 % (BEAKER) (test code = 432) BASOPHILS RELATIVE PERCENT 0 % (BEAKER) (test code = 437) NEUTROPHILS ABSOLUTE COUNT 5.05 K/ L 1.56-6.13 (BEAKER) (test code = 670) LYMPHOCYTES ABSOLUTE COUNT 2.20 K/ L 1.18-3.74 (BEAKER) (test code = 414) MONOCYTES ABSOLUTE COUNT (BEAKER) 0.54 K/ L 0.24-0.36 H (test code = 415) EOSINOPHILS ABSOLUTE COUNT 0.08 K/ L 0.04-0.36 (BEAKER) (test code = 416) BASOPHILS ABSOLUTE COUNT (BEAKER) 0.03 K/ L 0.01-0.08 (test code = 417) IMMATURE GRANULOCYTES-RELATIVE 0 % 0-1 PERCENT (BEAKER) (test code = 2801) ECG 12 [id number] 06:47:19Interface, External Ris In 05/05/2021 6:47 AM CDTVentricular Rate 91 BPMAtrial Rate 91 BPMP-R Interval 126 msQRS Duration 78 msQ-T Interval 352 msQTC Calculation(Bazett) 432 msP [place] 44 degreesR [place] 28 degreesT [place] 39 degreesNormal sinus rhythmNormal ECGNo previous ECGs availableConfirmed by MD BELLAMY JOSEPH P ([id number]) on 05/05/2021 6:47:15 [facility] 12 [id number] 06:47:19Interface, External Ris In - 05/05/2021 6:47 AM CDTVentricular Rate 91 BPMAtrial Rate 91 BPMP-R Inte rval 126 msQRS Duration 78 msQ-T Interval 352 msQTC Calculation(Bazett) 432 msP [place] 44 degreesR [place] 28 degreesT [place] 39 degreesNormal sinus rhythmNormal ECGNo previous ECGs availableConfirmed by MD BELLAMY JOSEPH P ([id number]) on 05/05/2021 6:47:15 [place] [address] [id number] 06:47:19Interface, External Ris In 05/05/2021 6:47 AM CDTVentricular Rate 91 BPMAtrial Rate 91 BPMP-R Interval 126 msQRS Duration 78 msQ-T Interval 352 msQTC Calculation(Bazett) 432 msP [place] 44 degreesR [place] 28 degreesT [place] 39 degreesNormal sinus rhythmNormal ECGNo previous ECGs availableConfirmed by OKSANA LANDRUM MD, JOSEPH P ([id number]) on 05/05/2021 6:47:15 [place] [address] [id number] 06:47:19Interface, External Ris In 05/05/2021 6:47 AM CDTVentricular Rate 91 BPMAtrial Rate 91 BPMP-R Interval 126 msQRS Duration 78 msQ-T Interval 352 msQTC Calculation(Bazett) 432 msP [place] 44 degreesR [place] 28 degreesT [place] 39 degreesNormal sinus rhythmNormal ECGNo previous ECGs availableConfirmed by MD BELLAMY JOSEPH P ([id number]) on 05/05/2021 6:47:15 [facility], [id number] 06:17:00 Test Item Value Reference Range Interpretation Comments ABO Grouping (test code = 2588) O Rh Factor (test code = 2589) POS [facility], [id number] 06:17:00 Test Item Value Reference Range Interpretation Comments ABO Grouping (test code = 2588) O Rh Factor (test code = 2589) POS [facility], [id number] 06:17:00 Test Item Value Reference Range Interpretation Comments ABO Grouping (test code = 2588) O Rh Factor (test code = 2589) POS [facility], [id number] 06:17:00 Test Item Value Reference Range Interpretation Comments ABO Grouping (test code = 2588) O Rh Factor (test code = 2589) [facility] 2021-05-05 05:01:00 Test Item Value Reference Range Interpretation Comments ABO/RH AUTOMATED (BEAKER) (test O POSITIVE code = 2260) Ab Scrn (test code = 890-4) NEGATIVE [facility] ([facility] 2021-05-05 05:01:00 Test Item Value Reference Range Interpretation Comments ABO/RH AUTOMATED (BEAKER) (test O POSITIVE code = 2260) Ab Scrn (test code = 890-4) NEGATIVE [facility] 2021-05-05 05:01:00 Test Item Value Reference Range Interpretation Comments ABO/RH AUTOMATED (BEAKER) (test O POSITIVE code = 2260) Ab Scrn (test code = 890-4) NEGATIVE [facility] ([facility] 2021-05-05 05:01:00 Test Item Value Reference Range Interpretation Comments ABO/RH AUTOMATED (BEAKER) (test O POSITIVE code = 2260) Ab Scrn (test code = 890-4) NEGATIVE [facility][id number] 04:35:00 Test Item Value Reference Interpretation Comments Range Protime (test code = 13.7 See_Comment [Autom ated 5902-2) message] The system which generated this result transmitted reference range : 11.9 - 14.2 seconds. The reference range was not used to interpret this result as normal/abnormal . INR (test code = 1.07 See_Comment [Automated Telerivet1-6) message] The system which generated this result [...] valves. Lab Interpretation Normal (test code = 45448-4) [facility][id number] 04:35:00 Test Item Value Reference Interpretation Comments Range Protime (test code = 13.7 See_Comment [Autom ated 5902-2) message] The system which generated this result transmitted reference range : 11.9 - 14.2 seconds. The reference range was not used to interpret this result as normal/abnormal . INR (test code = 1.07 See_Comment [Automated Telerivet1-6) message] The system which generated this result [...] valves. Lab Interpretation Normal (test code = 87636-0) [facility][id number] 04:35:00 Test Item Value Reference Interpretation Comments Range Protime (test code = 13.7 See_Comment [Autom ated 5902-2) message] The system which generated this result transmitted reference range : 11.9 - 14.2 seconds. The reference range was not used to interpret this result as normal/abnormal . INR (test code = 1.07 See_Comment [Automated Telerivet1-6) message] The system which generated this result [...] valves. Lab Interpretation Normal (test code = 47889-4) [facility][id number] 04:35:00 Test Item Value Reference Interpretation Comments Range Protime (test code = 13.7 See_Comment [Autom ated 5902-2) message] The system which generated this result transmitted reference range : 11.9 - 14.2 seconds. The reference range was not used to interpret this result as normal/abnormal . INR (test code = 1.07 See_Comment [Automated 9851-6) message] The system which generated this result [...] valves. Lab Interpretation Normal (test code = 79490-0) [facility]/[id number] 04:35:00 Test Item Value Reference Range Interpretation Comments PROTIME (BEAKER) 13.7 seconds 11.9-14.2 (test code = 759) INR (BEAKER) (test 1.07 See_Comment [Automat ed message] code = 370) The system [employer] generated this result transmitted ref erence range: <=5.90. The reference range was not used to int erpret this result as normal/abnormal . RECOMMENDED COUMADIN/WARFARIN INR THERAPY RANGESSTANDARD DOSE: 2.0 - 3.0 Includes: PROPHYLAXIS forvenous thrombosis, systemic embolization; TREATMENT for venous thrombosis and/or pulmonary embolus.HIGH RISK: Target INR is 2.5-3.5 for patients with mechanical heart valves.High Sensitivity Troponin [id number] 01:56:00 Test Item Value Reference Range Interpretation Comments Troponin I HS <4 See_Comment [Automated (test code = message] The 85180-9) system which generated this result transmitted reference range : <=17 pg/ml. The reference range was not used to interpret this result as normal/abnormal . TORRES (test code = Towel Sewer ID - TORRES) DBThe PAN CLEANER STAT High Sensitivity Troponin-I results should be used in conjunction with other diagnostic information such as ECG, clinical observations and information, and patient symptoms to aid in the diagnosis of ND. Lab Interpretation Normal (test code = 38628-6) [facility] Troponin [id number] 01:56:00 Test Item Value Reference Range Interpretation Comments Troponin I HS <4 See_Comment [Automated (test code = message] The 44742-3) system which generated this result transmitted reference range : <=17 pg/ml. The reference range was not used to interpret this result as normal/abnormal . TORRES (test code = Towel Sewer ID - TORRES) DBThe PAN CLEANER STAT High Sensitivity Troponin-I results should be used in conjunction with other diagnostic information such as ECG, clinical observations and information, and patient symptoms to aid in the diagnosis of ND. Lab Interpretation Normal (test code = 25577-0) [facility] Troponin [id number] 01:56:00 Test Item Value Reference Range Interpretation Comments Troponin I HS <4 See_Comment [Automated (test code = message] The 74944-5) system which generated this result transmitted reference range : <=17 pg/ml. The reference range was not used to interpret this result as normal/abnormal . TORRES (test code = Towel Sewer ID - TORRES) DBThe PAN CLEANER STAT High Sensitivity Troponin-I results should be used in conjunction with other diagnostic information such as ECG, clinical observations and information, and patient symptoms to aid in the diagnosis of ND. Lab Interpretation Normal (test code = 25509-2) [facility] Trop[facility] [id number] 01:56:00 Test Item Value Reference Range Interpretation Comments Troponin I HS <4 See_Comment [Automated (test code = message] The 18234-0) system which generated this result transmitted reference range : <=17 pg/ml. The reference range was not used to interpret this result as normal/abnormal . TORRES (test code = Towel Sewer ID - TORRES) DBThe PAN CLEANER STAT High Sensitivity Troponin-I results should be used in conjunction with other diagnostic information such as ECG, clinical observations and information, and patient symptoms to aid in the diagnosis of ND. Lab Interpretation Normal (test code = 87104-1) [facility] TROPONIN [id number] 01:56:00 Test Item Value Reference Range Interpretation Comments HIGH SENSITIVITY < pg/ml See_Comment [Automated message] TROPONIN I (test code = The system which 6052214) generated this result transmitted ref erence range: <=17. Th e reference range was not used to interpr et this result as normal/abnormal . Towel Sewer ID - DBThe PAN CLEANER STAT High Sensitivity Troponin-I results should be used in conjunctionwith other diagnostic information such as ECG, clinical observations and information, and patient symptoms to aid in the diagnosis of ND.[facility], [id number] 01:40:00 Test Item Value Reference Range Interpretation Comments Ketones, Blood (test code = 1103) 0.4 mmol/L <0.4 H Lab Interpretation (test code = Abnormal 16863-0) [facility], [id number] 01:40:00 Test Item Value Reference Range Interpretation Comments Ketones, Blood (test code = 1103) 0.4 mmol/L <0.4 H Lab Interpretation (test code = Abnormal 46550-7) [facility], [id number] 01:40:00 Test Item Value Reference Range Interpretation Comments Ketones, Blood (test code = 1103) 0.4 mmol/L <0.4 H Lab Interpretation (test code = Abnormal 41863-0) [facility], [id number] 01:40:00 Test Item Value Reference Range Interpretation Comments Ketones, Blood (test code = 1103) 0.4 mmol/L <0.4 H Lab Interpretation (test code = Abnormal 80761-1) [facility] [id number] 01:40:00 Test Item Value Reference Range Interpretation Comments KETONES, BLOOD (BEAKER) (test code 0.4 mmol/L <0.4 H = 1103) SARS-CoV2/RT-PCR (Asymptomatic ONLY)2021-05-05 01:30:00 Test Item Value Reference Interpretation Comments Range SARS-COV2/RT-PCR Negative Negative The SARS-Co V-2 (test code = target nucleic 01113-8) acids are not detected in thi s specimen. Nega tive results do not preclude SARS-C oV-2 infection and should not be u sed as the sole bas is for patient management decisions. Nega tive results must be combined with clinical observations, patient history , and epidemiolog ical information. A false negative result may occu r if a specimen is improperly collected, transported or handled. This SARS CoV-2 test is a rapid, real-t marek RT-PCR test intended for e qualitative detection of nucleic acid fr om SARS-CoV-2 in a nasopharyngeal swab specimen colle lane from individual s suspected of COVID-19 by the ir healthcare provider. TORRES (test code = This test has been TORRES) authorized by FDA under an EUA for use by authorized laboratories. This test is only authorized for the duration of the declaration that circumstances exist justifying the authorization of emergency use of in vitro diagnostic tests for detection and/or diagnosis of COVID-19 under Section 564(b)(1) of the Federal Food, Drug and Cosmetic Act, 21 U.S.C. 360bbb-3(b)(1), unless the authorization is terminated or revoked sooner. Fact Sheet for Healthcare Providers: https://www.[employer]/Documents/Xp ert%20Xpress%20SAR S%20CoV-2/Fact%20S heets/302-3802%20S ARS-COV-2%20HEALTH CARE%20PROVIDERS%2 0FACT%20SHEET.pdf Fact Sheet for Healthcare Patients: https://www.[employer]/Documents/Xp ert%20Xpress%20SAR S%20CoV-2/Fact%20S heets/302-3801%20S ARS-COV-2%20PATIEN T%20FACT%20SHEET.p df Lab Interpretation Normal (test code = 23600-5) [facility]21-[facility]-05 01:30:00 Test Item Value Reference Interpretation Comments Range SARS-COV2/RT-PCR Negative Negative The SARS-Co V-2 (test code = target nucleic 98411-2) acids are not detected in thi s specimen. Nega tive results do not preclude SARS-C oV-2 infection and should not be u sed as the sole bas is for patient management decisions. Nega tive results must be combined with clinical observations, patient history , and epidemiolog ical information. A false negative result may occu r if a specimen is improperly collected, transported or handled. This SARS CoV-2 test is a rapid, real-t marek RT-PCR test intended for th e qualitative detection of nucleic acid fr om SARS-CoV-2 in a nasopharyngeal swab specimen collec lane from individual s suspected of COVID-19 by the ir healthcare provider. TORRES (test code = This test has been TORRES) authorized by FDA under an EUA for use by authorized laboratories. This test is only authorized for the duration of the declaration that circumstances exist justifying the authorization of emergency use of in vitro diagnostic tests for detection and/or diagnosis of COVID-19 under Section 564(b)(1) of the Federal Food, Drug and Cosmetic Act, 21 U.S.C. 360bbb-3(b)(1), unless the authorization is terminated or revoked sooner. Fact Sheet for Healthcare Providers: https://www.[employer]/Documents/Xp ert%20Xpress%20SAR S%20CoV-2/Fact%20S heets/302-3802%20S ARS-COV-2%20HEALTH CARE%20PROVIDERS%2 0FACT%20SHEET.pdf Fact Sheet for Healthcare Patients: https://www.[employer]/Documents/Xp ert%20Xpress%20SAR S%20CoV-2/Fact%20S heets/302-3801%20S ARS-COV-2%20PATIEN T%20FACT%20SHEET.p df Lab Interpretation Normal (test code = 29066-6) [facility]2021-05-05 01:30:00 Test Item Value Reference Interpretation Comments Range SARS-COV2/RT-PCR Negative Negative The SARS-Co V-2 (test code = target nucleic 65574-4) acids are not detected in thi s specimen. Nega tive results do not preclude SARS-C oV-2 infection and should not be u sed as the sole bas is for patient management decisions. Nega tive results must be combined with clinical observations, patient history , and epidemiolog ical information. A false negative result may occu r if a specimen is improperly collected, transported or handled. This SARS CoV-2 test is a rapid, real-t marek RT-PCR test intended for th e qualitative detection of nucleic acid fr om SARS-CoV-2 in a nasopharyngeal swab specimen collec lane from individual s suspected of COVID-19 by the ir healthcare provider. TORRES (test code = This test has been TORRES) authorized by FDA under an EUA for use by authorized laboratories. This test is only authorized for the duration of the declaration that circumstances exist justifying the authorization of emergency use of in vitro diagnostic tests for detection and/or diagnosis of COVID-19 under Section 564(b)(1) of the Federal Food, Drug and Cosmetic Act, 21 U.S.C. 360bbb-3(b)(1), unless the authorization is terminated or revoked sooner. Fact Sheet for Healthcare Providers: https://www.[employer]/Documents/Xp ert%20Xpress%20SAR S%20CoV-2/Fact%20S heets/302-3802%20S ARS-COV-2%20HEALTH CARE%20PROVIDERS%2 0FACT%20SHEET.pdf Fact Sheet for Healthcare Patients: https://www.[employer]/Documents/Xp ert%20Xpress%20SAR S%20CoV-2/Fact%20S heets/302-3801%20S ARS-COV-2%20PATIEN T%20FACT%20SHEET.p df Lab Interpretation Normal (test code = 57650-5) [facility]2021-05-05 01:30:00 Test Item Value Reference Interpretation Comments Range SARS-COV2/RT-PCR Negative Negative The SARS-Co V-2 (test code = target nucleic 08025-8) acids are not detected in thi s specimen. Nega tive results do not preclude SARS-C oV-2 infection and should not be u sed as the sole bas is for patient management decisions. Nega tive results must be combined with clinical observations, patient history , and epidemiolog ical information. A false negative result may occu r if a specimen is improperly collected, transported or handled. This SARS CoV-2 test is a rapid, real-t marek RT-PCR test intended for th e qualitative detection of nucleic acid fr om SARS-CoV-2 in a nasopharyngeal swab specimen colle lane from individual s suspected of COVID-19 by the ir healthcare provider. TORRES (test code = This test has been TORRES) authorized by FDA under an EUA for use by authorized laboratories. This test is only authorized for the duration of the declaration that circumstances exist justifying the authorization of emergency use of in vitro diagnostic tests for detection and/or diagnosis of COVID-19 under Section 564(b)(1) of the Federal Food, Drug and Cosmetic Act, 21 U.S.C. 360bbb-3(b)(1), unless the authorization is terminated or revoked sooner. Fact Sheet for Healthcare Providers: https://www.[employer]/Documents/Xp ert%20Xpress%20SAR S%20CoV-2/Fact%20S heets/302-3802%20S ARS-COV-2%20HEALTH CARE%20PROVIDERS%2 0FACT%20SHEET.pdf Fact Sheet for Healthcare Patients: https://www.[employer]/Documents/Xp ert%20Xpress%20SAR S%20CoV-2/Fact%20S heets/302-3801%20S ARS-COV-2%20PATIEN T%20FACT%20SHEET.p df Lab Interpretation Normal (test code = 83047-5) [facility]2021-05-05 01:30:00 Test Item Value Reference Range Interpretation Comments SARS-COV2/RT-PCR Negative Negative The SARS-Co V-2 target (test code = nucleic acids a re not 0763478) detected in thi s specimen. Negative result s do not preclude SARS-C oV-2 infection and s hould not be used as the candace e basis for patient managem ent decisions. Nega tive results must be combine d with clinical observ ations, patient history , and epidemiological information. A false negativ e result may occur if a spec imen is improperly tejas ected, transported or handled. This SARS CoV-2 test is a rapid, real-doug e RT-PCR test intended for th e qualitative detection of nu cleic acid from SARS-CoV-2 in a nasopharyngeal swab specimen collected from individuals suspected of CO VID-19 by their healthcar e provider. This test has been authorized by FDA under an EUA for use by authorized laboratories. This test is only authorized for the duration of the declaration that circumstances exist justifying the authorization of emergency use of in vitro diagnostic tests for detection and/or diagnosis of COVID-19 under Section 564(b)(1) of the Federal Food, Drug and Cosmetic Act, 21 U.S.C. 360bbb- 3(b)(1), unless the authorization is terminated or revoked sooner. Fact Sheet for Healthcare Providers: https://www.[employer]/Documents/Xpert%20Xpress%20SARS%20CoV-2/Fact%20Sheets/3023802%20SARS-COV -2%20HEALTHCARE%20PROVIDERS%20FACT%20SHEET.pdf Fact Sheet for Healthcare Patients: https://www.[employer]/Documents/Xpert %20Xpress%20SARS%20CoV-2/Fact%20Sheets/3023801%90EXKZ-THY-7%20PATIENT%20FACT%20 SHEET.pdfBlood gas, [id number] 01:22:00 Test Item Value Reference Range Interpretation Comments pH, Niranjan (test code = 7.35 7.32-7.42 2746-6) pCO2, Niranjan (test code = 39 See_Comment L [Aut omated 755) message] The sy stem which generated this result transmitted reference range : 41 - 51 mm Hg. The reference range was not used to interpret this result as normal/abnormal . pO2, Niranjan (test code = 59 See_Comment H [Auto mated 9855-2) message] The sy stem which generated this result transmitted reference range : 25 - 40 mm Hg. The reference range was not used to interpret this result as normal/abnormal . O2 Sat, Niranjan (test code 89.4 % 40-70 H = 2711-0) HCO3, Niranjan (test code = 21 mmol/L 21-29 12233-1) Base Excess, Niranjan (test -4.5 mmol/L -2-3 L code = 1927-3) Patient Temperature 37.0 (test code = 8310-5) FIO2 (test code = 1819) 21 Lab Interpretation Abnormal (test code = 94842-0) [facility] gas, [id number] 01:22:00 Test Item Value Reference Range Interpretation Comments pH, Niranjan (test code = 7.35 7.32-7.42 2746-6) pCO2, Niranjan (test code = 39 See_Comment L [Aut omated 755) message] The sy stem which generated this result transmitted reference range : 41 - 51 mm Hg. The reference range was not used to interpret this result as normal/abnormal . pO2, Niranjan (test code = 59 See_Comment H [Auto mated 2705-2) message] The sy stem which generated this result transmitted reference range : 25 - 40 mm Hg. The reference range was not used to interpret this result as normal/abnormal . O2 Sat, Niranjan (test code 89.4 % 40-70 H = 2711-0) HCO3, Niranjan (test code = 21 mmol/L -29 08422-1) Base Excess, Niranjan (test -4.5 mmol/L -2-3 L code = 1927-3) Patient Temperature 37.0 (test code = 8310-5) FIO2 (test code = 1819) 21 Lab Interpretation Abnormal (test code = 45440-0) [facility], [id number] 01:22:00 Test Item Value Reference Range Interpretation Comments pH, Niranjan (test code = 7.35 7.32-7.42 2746-6) pCO2, Niranjan (test code = 39 See_Comment L [Aut omated 755) message] The sy stem which generated this result transmitted reference range : 41 - 51 mm Hg. The reference range was not used to interpret this result as normal/abnormal . pO2, Niranjan (test code = 59 See_Comment H [Auto mated 2705-2) message] The sy stem which generated this result transmitted reference range : 25 - 40 mm Hg. The reference range was not used to interpret this result as normal/abnormal . O2 Sat, Niranjan (test code 89.4 % 40-70 H = 2711-0) HCO3, Niranjan (test code = 21 mmol/L 21-29 39338-7) Base Excess, Niranjan (test -4.5 mmol/L -2-3 L code = 1927-3) Patient Temperature 37.0 (test code = 8310-5) FIO2 (test code = 1819) 21 Lab Interpretation Abnormal (test code = 58940-7) [facility] [id number] 01:22:00 Test Item Value Reference Range Interpretation Comments pH, Niranjan (test code = 7.35 7.32-7.42 2746-6) pCO2, Niranjan (test code = 39 See_Comment L [Aut omated 755) message] The sy stem which generated this result transmitted reference range : 41 - 51 mm Hg. The reference range was not used to interpret this result as normal/abnormal . pO2, Niranjan (test code = 59 See_Comment H [Auto mated 9935-2) message] The sy stem which generated this result transmitted reference range : 25 - 40 mm Hg. The reference range was not used to interpret this result as normal/abnormal . O2 Sat, Niranjan (test code 89.4 % 40-70 H = 2711-0) HCO3, Niranjan (test code = 21 mmol/L 21-29 75533-7) Base Excess, Niranjan (test -4.5 mmol/L -2-3 L code = 1927-3) Patient Temperature 37.0 (test code = 8310-5) FIO2 (test code = 1819) 21 Lab Interpretation Abnormal (test code = 51274-5) [facility] GAS, [id number] 01:22:00 Test Item Value Reference Range Interpretation Comments PH VENOUS (BEAKER) (test code = 7.35 7.32-7.42 701) PCO2 VENOUS (BEAKER) (test code = 39 mm Hg 41-51 L 755) PO2 VENOUS (BEAKER) (test code = 59 mm Hg 25-40 H 702) O2 SATURATION VENOUS (BEAKER) 89.4 % 40.0-70.0 H (test code = 703) HCO3 VENOUS (BEAKER) (test code = 21 mmol/L 21-29 705) BASE EXCESS VENOUS (BEAKER) (test -4.5 mmol/L -2.0-3.0 L code = 704) PATIENT TEMPERATURE (BEAKER) 37.0 (test code = 1818) FIO2 (BEAKER) (test code = 1819) 21.0 ECG/EKG [id number] 23:15:Cherie Guerra MD 05/05/2021 2:11 AMECG/EKG Interpretation Date/Time: 05/04/2021 11:26 PMPerformed by: Cherie Faustin MDAuthorized by: Cherie Faustin MD The ECG was interpreted by ED physician. The ECG is interpreted as sinus rhythm. Rate is normal rate. Heart rate is 91 BPM.ST segments normal. T-wave inversion in lead(s) V1 and V2. Clinical Impression: normal ECGCH[facility] CenterECG/[facility]KG Ngnybzewpdptiw5770-34-92 23:15:Cherie Guerra MD 05/05/2021 2:11 AMECG/EKG Interpretation Date/Time: 05/04/2021 11:26 PMPerformed by: Cherie Faustin MDAuthorized by: Cherie Faustin MD The ECG was interpreted by ED physician. The ECG is interpreted as sinus rhythm. Rate is normal rate. Heart rate is 91 BPM.ST segments normal. T-wave inversion in lead(s) V1 and V2. Clinical Impression: normal ECGCH[facility] CenterECG/EKG Adyxhcndrvpfgn9895-67-85 23:15:Cherie Guerra MD 05/05/2021 2:11 AMECG/EKG Interpretation Date/Time: 05/04/2021 11:26 PMPerformed by: Cherie Faustin MDAuthorized by: Cherie Faustin MD The ECG was interpreted by ED physician. The ECG is interpreted as sinus rhythm. Rate is normal rate. Heart rate is 91 BPM.ST segments normal. T-wave inversion in lead(s) V1 and V2. Clinical Impression: normal ECGCH[facility] CenterECG/EKG Guhitqbnbcffma0330-57-55 23:15:Cherie Guerra MD 05/05/2021 2:11 AMECG/EKG Interpretation Date/Time: 05/04/2021 11:26 PMPerformed by: Cherie Faustin MDAuthorized by: Cherie Faustin MD The ECG was interpreted by ED physician. The ECG is interpreted as sinus rhythm. Rate is normal rate. Heart rate is 91 BPM.ST segments normal. T-wave inversion in lead(s) V1 and V2. Clinical Impression: normal ECGMercy General HospitalHEPATIC FUNCTION [id number] 22:01:00 Test Item Value Reference Range Interpretation Comments TOTAL PROTEIN (BEAKER) 9.5 gm/dL 6.0-8.3 H Speci men moderately (test code = 770) hemolyzed ALBUMIN (BEAKER) (test 4.2 g/dL 3.5-5.0 Speci men moderately code = 1145) hemolyzed BILIRUBIN TOTAL < mg/dL 0.2-1.2 L Specimen mod erately (BEAKER) (test code = hemoly zed 377) BILIRUBIN DIRECT 0.1 mg/dL 0.1-0.5 Specimen mo derately (BEAKER) (test code = hemoly zed 706) ALKALINE PHOSPHATASE 67 U/L 40-150 (BEAKER) (test code = 346) AST (SGOT) (BEAKER) 61 U/L 5-34 H Specimen moderately (test code = 353) hemolyzed ALT (SGPT) (BEAKER) 53 U/L 6-55 Specimen moderately (test code = 347) hemolyzed Towel Sewer ID - [id number] 21:53:00 Test Item Value Reference Range Interpretation Comments Amylase (test code = 143 U/L 25-125 H Specime n 1798-8) markedly hemolyzed TORRES (test code = TORRES) Towel Sewer ID - DB Lab Interpretation Abnormal (test code = 69769-9) [facility] 21:53:00 Test Item Value Reference Range Interpretation Comments Lipase (test code = 3040-3) 97 U/L 8-78 H TORRES (test code = TORRES) Towel Sewer ID - DB Lab Interpretation (test Abnormal code = 70608-7) [facility] 21:53:00 Test Item Value Reference Range Interpretation Comments Amylase (test code = 143 U/L 25-125 H Specime n 1798-8) markedly hemolyzed TORRES (test code = TORRES) Towel Sewer ID - DB Lab Interpretation Abnormal (test code = 69857-6) [facility] 21:53:00 Test Item Value Reference Range Interpretation Comments Lipase (test code = 3040-3) 97 U/L 8-78 H TORRES (test code = TORRES) Towel Sewer ID - DB Lab Interpretation (test Abnormal code = 56174-4) [facility] 21:53:00 Test Item Value Reference Range Interpretation Comments Amylase (test code = 143 U/L 25-125 H Specime n 1798-8) markedly hemolyzed TORRES (test code = TORRES) Towel Sewer ID - DB Lab Interpretation Abnormal (test code = 97795-9) [facility] 21:53:00 Test Item Value Reference Range Interpretation Comments Lipase (test code = 3040-3) 97 U/L 8-78 H TORRES (test code = TORRES) Towel Sewer ID - DB Lab Interpretation (test Abnormal code = 33630-6) [facility] 21:53:00 Test Item Value Reference Range Interpretation Comments Amylase (test code = 143 U/L 25-125 H Specime n 1798-8) markedly hemolyzed TORRES (test code = TORRES) Towel Sewer ID - DB Lab Interpretation Abnormal (test code = 76151-5) [facility] 21:53:00 Test Item Value Reference Range Interpretation Comments Lipase (test code = 3040-3) 97 U/L 8-78 H TORRES (test code = TORRES) Towel Sewer ID - DB Lab Interpretation (test Abnormal code = 58289-8) [facility] HospitalBASIC METABOLIC [id number] 21:53:00 Test Item Value Reference Range Interpretation Comments SODIUM (BEAKER) 133 meq/L 136-145 L (test code = 381) POTASSIUM (BEAKER) 5.6 meq/L 3.5-5.1 H Specimen markedly (test code = 379) hemolyzed CHLORIDE (BEAKER) 108 meq/L 98-107 H (test code = 382) CO2 (BEAKER) (test 12 meq/L 22-29 L code = 355) BLOOD UREA NITROGEN 17 mg/dL 7-21 (BEAKER) (test code = 354) CREATININE (BEAKER) 1.30 mg/dL 0.57-1.25 H Specimen markedly (test code = 358) hemolyzed GLUCOSE RANDOM 105 mg/dL 70-105 (BEAKER) (test code = 652) CALCIUM (BEAKER) 9.2 mg/dL 8.4-10.2 (test code = 697) EGFR (BEAKER) (test 40 mL/min/1.[address] GFR IS code = 1092) sq m NOT ACCURATE CREATININE CLEARANCE IN PREDICTING GLOMERULAR FILTRATION RATE . ESTIMATED GFR I S NOT APPLICABLE FOR DIALYSIS PATIEN TS. Towel Sewer ID - [id number] 21:53:00 Test Item Value Reference Range Interpretation Comments AMYLASE (BEAKER) (test 143 U/L 25-125 H Speci men markedly code = 349) hemolyzed Towel Sewer ID - [id number] 21:53:00 Test Item Value Reference Range Interpretation Comments LIPASE (BEAKER) (test code = 749) 97 U/L 8-78 H Towel Sewer ID - DBCBC W/PLT COUNT & AUTO [id number] 19:51:00 Test Item Value Reference Range Interpretation Comments WHITE BLOOD CELL COUNT (BEAKER) 13.7 K/ L 3.5-10.5 H (test code = 775) RED BLOOD CELL COUNT (BEAKER) 3.82 M/ L 3.93-5.22 L (test code = 761) HEMOGLOBIN (BEAKER) (test code = 11.4 GM/DL 11.2-15.7 410) HEMATOCRIT (BEAKER) (test code = 35.4 % 34.1-44.9 411) MEAN CORPUSCULAR VOLUME (BEAKER) 92.7 fL 79.4-94.8 (test code = 753) MEAN CORPUSCULAR HEMOGLOBIN 29.8 pg 25.6-32.2 (BEAKER) (test code = 751) MEAN CORPUSCULAR HEMOGLOBIN CONC 32.2 GM/DL 32.2-35.5 (BEAKER) (test code = 752) RED CELL DISTRIBUTION WIDTH 13.6 % 11.7-14.4 (BEAKER) (test code = 412) PLATELET COUNT (BEAKER) (test 391 K/CU MM 150-450 code = 756) MEAN PLATELET VOLUME (BEAKER) 9.6 fL 9.4-12.3 (test code = 754) NUCLEATED RED BLOOD CELLS 0 /100 WBC 0-0 (BEAKER) (test code = 413) NEUTROPHILS RELATIVE PERCENT 77 % (BEAKER) (test code = 429) LYMPHOCYTES RELATIVE PERCENT 18 % (BEAKER) (test code = 430) MONOCYTES RELATIVE PERCENT 5 % (BEAKER) (test code = 431) EOSINOPHILS RELATIVE PERCENT 0 % (BEAKER) (test code = 432) BASOPHILS RELATIVE PERCENT 0 % (BEAKER) (test code = 437) NEUTROPHILS ABSOLUTE COUNT 10.58 K/ L 1.56-6.13 H (BEAKER) (test code = 670) LYMPHOCYTES ABSOLUTE COUNT 2.40 K/ L 1.18-3.74 (BEAKER) (test code = 414) MONOCYTES ABSOLUTE COUNT (BEAKER) 0.63 K/ L 0.24-0.36 H (test code = 415) EOSINOPHILS ABSOLUTE COUNT 0.03 K/ L 0.04-0.36 L (BEAKER) (test code = 416) BASOPHILS ABSOLUTE COUNT (BEAKER) 0.02 K/ L 0.01-0.08 (test code = 417) IMMATURE GRANULOCYTES-RELATIVE 0 % 0-1 PERCENT (BEAKER) (test code = 2801) POC-Glucose [id number] 08:41:00 Test Item Value Reference Range Interpretation Comments POC-Glucose Meter (test 104 mg/dL 70-110 : TE STED AT [facility] code = 1538) [address] [place] [address], [facility] 30: Towel Sewer/Techni aldo ID = [id number] for HUSSEIN LEMON Lab Interpretation (test Normal code = 10051-3) [facility]-Glucose [id number] 08:41:00 Test Item Value Reference Range Interpretation Comments POC-Glucose Meter (test 104 mg/dL 70-110 : TE STED AT [facility] code = 1538) [address] [place] [address], [facility] 30: Towel Sewer/Techni aldo ID = [id number] for HUSSEIN LEMON Lab Interpretation (test Normal code = 66503-5) [facility]-Glucose [id number] 08:41:00 Test Item Value Reference Range Interpretation Comments POC-Glucose Meter (test 104 mg/dL 70-110 : TE STED AT [facility] code = 1538) [address] [place] [address], 770 30: Towel Sewer/Techni aldo ID = [id number] for HUSSEIN LEMON Lab Interpretation (test Normal code = 98893-2) [facility]-Glucose [id number] 08:41:00 Test Item Value Reference Range Interpretation Comments POC-Glucose Meter (test 104 mg/dL 70-110 : TE STED AT [facility] code = 1538) [address] [facility], 770 30: Towel Sewer/Techni aldo ID = [id number] for HUSSEIN ELMON Lab Interpretation (test Normal code = 76993-0) [facility]-GLUCOSE [id number] 08:41:00 Test Item Value Reference Range Interpretation Comments POC-GLUCOSE METER 104 mg/dL 70-110 : TESTED A T [facility] 6720 (BEAKER) (test code = [place]ATO Kaba [facility], 1538) [address]: Towel Sewer/Techni aldo ID = [id number] for HUSSEIN DAVID Comprehensive metabolic [id number] 06:49:00 Test Item Value Reference Range Interpretation Comments Protein, Total (test 6.8 See_Comment [Autom ated code = 2885-2) message] The system which generated this result transmit lane reference range : 6.0 - 8.3 gm/dL . The reference range was not u sed to interpret th is result as normal/abnormal . Albumin (test code = 3.5 g/dL 3.5-5 08166-4) Alkaline Phosphatase 44 U/L 40-150 (test code = 6768-6) Total Bilirubin (test 0.3 mg/dL 0.2-1.2 code = 1975-2) Sodium (test code = 139 meq/L 349-357 7199-2) Potassium (test code 3.8 meq/L 3.5-5.1 = 2823-3) Chloride (test code = 104 meq/L 98-107 5-0) CO2 (test code = 27 meq/L 22-29 2027-9) BUN (test code = 12 mg/dL 7-21 3094-0) Creatinine (test code 1.05 mg/dL 0.57-1.25 = 2160-0) Glucose (test code = 79 mg/dL 70-105 2345-7) Calcium (test code = 8.4 mg/dL 8.4-10.2 14745-7) AST (test code = 49 U/L 5-34 H 1920-8) ALT (test code = 41 U/L -55 1742-6) EGFR (test code = 52 mL/min/1.[address] [place] [address]-6) NOT ACCURATE CREATININE CLEARANCE IN PREDICTING GLOMERULAR FILTRATION RATE . ESTIMATED GFR I S NOT APPLICABLE FOR DIALYSIS PATIEN TS. MACDONALD (test code = TORRES) Towel Sewer ID - HUMBLE M Lab Interpretation Abnormal (test code = 27584-4) [facility] [id number] 06:49:00 Test Item Value Reference Range Interpretation Comments Protein, Total (test 6.8 See_Comment [Autom ated code = 2885-2) message] The system which generated this result transmit lane reference range : 6.0 - 8.3 gm/dL . The reference range was not u sed to interpret th is result as normal/abnormal . Albumin (test code = 3.5 g/dL 3.5-5 85947-3) Alkaline Phosphatase 44 U/L 40-150 (test code = 6768-6) Total Bilirubin (test 0.3 mg/dL 0.2-1.2 code = 1974-2) Sodium (test code = 139 meq/L 092-054 5383-2) Potassium (test code 3.8 meq/L 3.5-5.1 = 2823-3) Chloride (test code = 104 meq/L 98-107 5-0) CO2 (test code = 27 meq/L 22-29 2027-9) BUN (test code = 12 mg/dL 7- 3094-0) Creatinine (test code 1.05 mg/dL 0.57-1.25 = 2160-0) Glucose (test code = 79 mg/dL 70-105 2345-7) Calcium (test code = 8.4 mg/dL 8.4-10.2 26502-4) AST (test code = 49 U/L 5-34 H 1920-8) ALT (test code = 41 U/L -55 1742-6) EGFR (test code = 52 mL/min/1.[address] [place] [address]-0) NOT ACCURATE CREATININE CLEARANCE IN PREDICTING GLOMERULAR FILTRATION RATE . ESTIMATED GFR I S NOT APPLICABLE FOR DIALYSIS PATIEN TS. TORRES (test code = TORRES) Towel Sewer ID - HUMBLE M Lab Interpretation Abnormal (test code = 65847-5) [facility] [id number] 06:49:00 Test Item Value Reference Range Interpretation Comments Protein, Total (test 6.8 See_Comment [Autom ated code = 2885-2) message] The system which generated this result transmit lane reference range : 6.0 - 8.3 gm/dL . The reference range was not u sed to interpret th is result as normal/abnormal . Albumin (test code = 3.5 g/dL 3.5-5 77713-6) Alkaline Phosphatase 44 U/L 40-150 (test code = 6768-6) Total Bilirubin (test 0.3 mg/dL 0.2-1.2 code = 1975-2) Sodium (test code = 139 meq/L 363-890 7271-2) Potassium (test code 3.8 meq/L 3.5-5.1 = 2823-3) Chloride (test code = 104 meq/L 98-107 2075-0) CO2 (test code = 27 meq/L 22-29 2028-9) BUN (test code = 12 mg/dL 7-21 3094-0) Creatinine (test code 1.05 mg/dL 0.57-1.25 = 2160-0) Glucose (test code = 79 mg/dL 70-105 2345-7) Calcium (test code = 8.4 mg/dL 8.4-10.2 34056-4) AST (test code = 49 U/L 5-34 H 1920-8) ALT (test code = 41 U/L 6-55 1742-6) EGFR (test code = 52 mL/min/1.[address] [place] [address]-5) NOT ACCURATE CREATININE CLEARANCE IN PREDICTING GLOMERULAR FILTRATION RATE . ESTIMATED GFR I S NOT APPLICABLE FOR DIALYSIS PATIEN TS. TORRES (test code = TORRES) Towel Sewer ID - HUMBLE M Lab Interpretation Abnormal (test code = 74177-0) [facility] [id number] 06:49:00 Test Item Value Reference Range Interpretation Comments Protein, Total (test 6.8 See_Comment [Autom ated code = 2885-2) message] The system which generated this result transmit lane reference range : 6.0 - 8.3 gm/dL . The reference range was not u sed to interpret th is result as normal/abnormal . Albumin (test code = 3.5 g/dL 3.5-5 19710-0) Alkaline Phosphatase 44 U/L 40-150 (test code = 6768-6) Total Bilirubin (test 0.3 mg/dL 0.2-1.2 code = 1974-2) Sodium (test code = 139 meq/L 023-286 1837-2) Potassium (test code 3.8 meq/L 3.5-5.1 = 2823-3) Chloride (test code = 104 meq/L 98-107 2075-0) CO2 (test code = 27 meq/L 22-29 2028-9) BUN (test code = 12 mg/dL 7-21 3094-0) Creatinine (test code 1.05 mg/dL 0.57-1.25 = 2160-0) Glucose (test code = 79 mg/dL 70-105 2345-7) Calcium (test code = 8.4 mg/dL 8.4-10.2 41512-8) AST (test code = 49 U/L 5-34 H 1920-8) ALT (test code = 41 U/L 6-55 1742-6) EGFR (test code = 52 mL/min/1.[address] [place] [address]-6) NOT ACCURATE CREATININE CLEARANCE IN PREDICTING GLOMERULAR FILTRATION RATE . ESTIMATED GFR I S NOT APPLICABLE FOR DIALYSIS PATIEN TSKenrick TORRES (test code = TORRES) Towel Sewer ID - HUMBLE M Lab Interpretation Abnormal (test code = 26922-1) [facility] [id number] 06:49:00 Test Item Value Reference Range Interpretation [...] = 382) CO2 (BEAKER) (test 27 meq/L 22-29 code = 355) BLOOD UREA NITROGEN 12 [...] 347) EGFR (BEAKER) (test 52 mL/min/1.[address] GFR IS code = 1092) sq m NOT ACCURATE CREATININE CLEARANCE IN PREDICTING GLOMERULAR FILTRATION RATE . ESTIMATED GFR I S NOT APPLICABLE FOR DIALYSIS PATIEN TS. Towel Sewer ID - HUMBLE MPOCT-GLUCOSE [id number] 16:54:00 Test Item Value Reference Range Interpretation Comments POC-GLUCOSE METER 171 mg/dL 70-110 H : TESTED A T [facility] 6720 (BEAKER) (test code = [place], 1538) [address]: Towel Sewer/Techni aldo ID = [id number] for ALBINO GONZALEZ Hemoglobin [id number] 15:22:00 Test Item Value Reference Range Interpretation Comments Hemoglobin A1C (test code = 4548-4) 6.2 % 4.3-6.1 H Lab Interpretation (test code = Abnormal 31444-9) [facility] [id number] 15:22:00 Test Item Value Reference Range Interpretation Comments Hemoglobin A1C (test code = 4548-4) 6.2 % 4.3-6.1 H Lab Interpretation (test code = Abnormal 51867-2) [facility] [id number] 15:22:00 Test Item Value Reference Range Interpretation Comments Hemoglobin A1C (test code = 4548-4) 6.2 % 4.3-6.1 H Lab Interpretation (test code = Abnormal 35304-1) [facility] [id number] 15:22:00 Test Item Value Reference Range Interpretation Comments Hemoglobin A1C (test code = 4548-4) 6.2 % 4.3-6.1 H Lab Interpretation (test code = Abnormal 12389-2) [facility] HospitalHEMOGLOBIN [id number] 15:22:00 Test Item Value Reference Range Interpretation Comments HEMOGLOBIN A1C (BEAKER) (test code = 6.2 % 4.3-6.1 H 368) POCT-GLUCOSE [id number] 12:56:00 Test Item Value Reference Range Interpretation Comments POC-GLUCOSE METER 93 mg/dL 70-110 : Notified RN/MD: TESTED (BEAKER) (test code = AT [facility] [address] [facility] 1538) [facility], [facility] 30: Towel Sewer/Techni aldo ID = [id number] for Simm vita Arely [place], [id number] 12:02:00Reason for exam:->[facility] : 1950 Sex: FFluoroscopic unit utilized for a procedure performed in the OR. No interpretation was requested. Refer to the operative report for findings. Refer to PACS for patient radiation dose information.[facility] Endoscopic Retrograde [id number] 12:02:00Interface, External Ris In - 03/10/2021 12:18 PM CDTFluoroscopic unit utilized for a procedure performed in the OR. No interpretation was requested. Refer to the operative report for findings. Referto PACS for patient radiation dose information.[facility] Endoscopic Retrograde Eoazpahrzgucjgqxbmfuuwtb7321-94-23 12:02:00Interface, External Ris In - 03/10/2021 12:18 PM CDTFluoroscopic unit utilized for a procedure performed in the OR. No interpretation was requested. Refer to the operative report for findings. Referto PACS for patient radiation dose information.[facility] Endoscopic Retrograde Solmrjaseoejnbdvwhbmobsh2281-06-80 12:02:00Interface, External Ris In 03/10/2021 12:18 PM CDTFluoroscopic unit utilized for a procedure performed in the OR. No interpretation was requested. Refer to the operative report for findings. Referto PACS for patient radiation dose information.[facility] Endoscopic Retrograde Hrwvlerhphlwaoadkgzegyku4582-71-11 12:02:00Interface, External Ris In 03/10/2021 12:18 PM CDTFluoroscopic unit utilized for a procedure performed in the OR. No interpretation was requested. Refer to the operative report for findings. Referto PACS for patient radiation dose information.[facility] HospitalPO[facility] [id number] 09:27:00 Test Item Value Reference Range Interpretation Comments POC-GLUCOSE METER 74 mg/dL 70-110 : TESTED A T [facility] 6720 (BEAKER) (test code = [place]O Kaba [facility], 1538) [address]: Towel Sewer/Techni aldo ID = [id number] for ALBINO ROSS COMPREHENSIVE METABOLIC [id number] 05:49:00 Test Item Value Reference Range Interpretation [...] 347) EGFR (BEAKER) (test 50 mL/min/1.[address] GFR IS code = 1092) sq m NOT ACCURATE CREATININE CLEARANCE IN PREDICTING GLOMERULAR FILTRATION RATE . ESTIMATED GFR I S NOT APPLICABLE FOR DIALYSIS PATIEN TS. Towel Sewer ID - HUMBLE [facility] (Hemogram only)2021-03-10 05:10:00 Test Item Value Reference Range Interpretation Comments WBC (test code = 6690-2) 9.1 See_Comment [A utomated message] The system Pin or Peg generated this result transmitted ref erence range: 3.5 - 10 .5 K/L. The refe rence range was not u sed to interpret this result as normal/abnor mal. RBC (test code = 789-8) 3.57 See_Comment L [Au tomated message] The system Pin or Peg generated this result transmitted ref erence range: 3.93 - 5 .22 M/L. The refe rence range was not u sed to interpret this result as normal/abnor mal. MCHC (test code = 786-4) 30.9 See_Comment L [A utomated message] The system Pin or Peg generated this result transmitted ref erence range: [...] code = 278 See_Comment [Aut omated message] 777-3) The system Pin or [employer] generated this result transmitted ref erence range: 150 - 45 0 K/CU MM. The referen ce range was not u sed to interpret this result as normal/abnor mal. MPV (test code = 9.3 fL 9.4-12.3 L 94314-6) nRBC (test code = 413) 0 See_Comment [Aut omated message] The system Pin or Peg generated this result transmitted ref erence range: 0 - 0 /1 00 WBC. The refere nce range was not u sed to interpret this result as normal/abnor mal. Lab Interpretation (test Abnormal code = 02516-9) [facility]2021-03-10 05:10:00 Test Item Value Reference Range Interpretation Comments WBC (test code = 6690-2) 9.1 See_Comment [A utomated message] The system Pin or Peg generated this result transmitted ref erence range: 3.5 - 10 .5 K/L. The refe rence range was not u sed to interpret this result as normal/abnor mal. RBC (test code = 789-8) 3.57 See_Comment L [Au tomated message] The system Pin or Peg generated this result transmitted ref erence range: 3.93 - 5 .22 M/L. The refe rence range was not u sed to interpret this result as normal/abnor mal. MCHC (test code = 786-4) 30.9 See_Comment L [A utomated message] The system Pin or Peg generated this result transmitted ref erence range: [...] code = 278 See_Comment [Aut omated message] 777-3) The system Pin or Peg generated this result transmitted ref erence range: 150 - 45 0 K/CU MM. The referen ce range was not u sed to interpret this result as normal/abnor mal. MPV (test code = 9.3 fL 9.4-12.3 L 46465-6) nRBC (test code = 413) 0 See_Comment [Aut omated message] The system Pin or Peg generated this result transmitted ref erence range: 0 - 0 /1 00 WBC. The refere nce range was not u sed to interpret this result as normal/abnor mal. Lab Interpretation (test Abnormal code = 22844-3) [facility]2021-03-10 05:10:00 Test Item Value Reference Range Interpretation Comments WBC (test code = 6690-2) 9.1 See_Comment [A utomated message] The system Pin or Peg generated this result transmitted ref erence range: 3.5 - 10 .5 K/L. The refe rence range was not u sed to interpret this result as normal/abnor mal. RBC (test code = 789-8) 3.57 See_Comment L [Au tomated message] The system Pin or Peg generated this result transmitted ref erence range: 3.93 - 5 .22 M/L. The refe rence range was not u sed to interpret this result as normal/abnor mal. MCHC (test code = 786-4) 30.9 See_Comment L [A utomated message] The system Pin or Peg generated this result transmitted ref erence range: [...] code = 278 See_Comment [Aut omated message] 637-3) The system Pin or [employer] generated this result transmitted ref erence range: 150 - 45 0 K/CU MM. The referen ce range was not u sed to interpret this result as normal/abnor mal. MPV (test code = 9.3 fL 9.4-12.3 L 34936-2) nRBC (test code = 413) 0 See_Comment [Aut omated message] The system Pin or Peg generated this result transmitted ref erence range: 0 - 0 /1 00 WBC. The refere nce range was not u sed to interpret this result as normal/abnor mal. Lab Interpretation (test Abnormal code = 79136-0) [facility] (Hemogram only)2021-03-10 05:10:00 Test Item Value Reference Range Interpretation Comments WBC (test code = 6690-2) 9.1 See_Comment [A utomated message] The system Pin or Peg generated this result transmitted ref erence range: 3.5 - 10 .5 K/L. The refe rence range was not u sed to interpret this result as normal/abnor mal. RBC (test code = 789-8) 3.57 See_Comment L [Au tomated message] The system Pin or Peg generated this result transmitted ref erence range: 3.93 - 5 .22 M/L. The refe rence range was not u sed to interpret this result as normal/abnor mal. MCHC (test code = 786-4) 30.9 See_Comment L [A utomated message] The system Pin or Peg generated this result transmitted ref erence range: [...] code = 278 See_Comment [Aut omated message] 777-3) The system Pin or Peg generated this result transmitted ref erence range: 150 - 45 0 K/CU MM. The referen ce range was not u sed to interpret this result as normal/abnor mal. MPV (test code = 9.3 fL 9.4-12.3 L 09151-4) nRBC (test code = 413) 0 See_Comment [Aut omated message] The system Pin or Peg generated this result transmitted ref erence range: 0 - 0 /1 00 WBC. The refere nce range was not u sed to interpret this result as normal/abnor mal. Lab Interpretation (test Abnormal code = 94413-9) [facility] (HEMOGRAM ONLY)2021-03-10 05:10:00 Test Item [...] 0-0 (BEAKER) (test code = 413) POCT-GLUCOSE [id number] 00:05:00 Test Item Value Reference Range Interpretation Comments POC-GLUCOSE METER 83 mg/dL 70-110 : TESTED A T [facility] 6720 (BEAKER) (test code = [place], 1538) [address]: Towel Sewer/Techni aldo ID = [id number] for BRENDA VENCES SARS-COV2/RT-PCR ([facility])2021-03-09 23:58:00 Test Item Value Reference Range Interpretation Comments SARS-COV2/RT-PCR (test Negative Not Detected, Negative, code = 0988179) See external report for linked test SARS-COV-2 PERFORMING LAB [facility] SHIV (test code = 1382167) Negative result for this test determines that [...] 564(g) of the Act.Fact Sheet for Healthcare Providers:https://www.[employer]/sites/default/files/product/documents/Fact_Shelita cabrall_GT_Vfofrwvxz_Gpnd_SMCI-VcO-0.pdfFact Sheet for Healthcare Patients:https://www.[employer]/sites/default/files/product/ documents/Kesa_Aoyrl_Jarhftjf_Bdwn_DUPI-HdW-2.pdfPerforming Laboratory:[facility], [place] [id number] METER 2021-03-09 17:34:00 Test Item Value Reference Range Interpretation Comments POC-GLUCOSE METER 97 mg/dL 70-110 : TESTED A T [facility] 6720 (LIA) (test code = [place] [facility], 1538) [address]: Towel Sewer/Techni aldo ID = [id number] for ALBINO ROSS MR, ABDOMEN, [id number] 17:11:00Unlisted Reason for Exam - Click Yes and Enter Reason Below->NoPatient with hyperdense material seen in distal CBD on CT[facility] : 1950 Sex: FFINAL [...] CT 12/29/2005 but appears chronic Signed: Ashely Alyort Verified Date/Time: 03/09/2021 17:11:18 Reading Location: [address] Transitional Reading Room MR abdomen without IV contrast [id number] 17:11:00 Interface, External Ris In - 03/09/2021 [...] CT 12/29/2005 but appears chronic Signed: Ashely Alyort Verified Date/Time: 03/09/2021 17:11:18 Reading Location: [address] Transitional Reading Room [facility] abdomen without IV contrast [id number] 17:11:00 Interface, External Ris In - 03/09/2021 [...] CT 12/29/2005 but appears chronic Signed: Ashely Alyeport Verified Date/Time: 03/09/2021 17:11:18 Reading Location: [facility] Transitional Reading Room [facility] abdomen without IV contrast [id number] 17:11:00 Interface, External Ris In - 03/09/2021 [...] Aly Verified Date/Time: 03/09/2021 17:11:18 Reading [facility]: [address] [facility] [id number] 17:11:00 Interface, External Ris In - 03/09/2021 [...] Aly Verified Date/Time: 03/09/2021 17:11:18 Reading Location: [address] [facility] [id number] 12:41:00 Test Item Value Reference Range Interpretation Comments POC-GLUCOSE METER 92 mg/dL 70-110 : TESTED A T [facility] 6720 (BEAKER) (test code = [place] [facility], 1538) [address]: Towel Sewer/Techni aldo ID = [id number] for PARESH NOALBINO Urinalysis w/Microscopic + Reflex to [id number] 11:21:00 Test Item Value Reference Range Interpretation Comments Color, UA (test code Light Yellow = 5778-6) Clarity, UA (test Clear code = 5767-9) Specific [place], UA 1.033 1.001-1.035 (test code = 5811-5) pH, UA (test code = 5.5 5.0-8.0 5803-2) Protein, UA (test Negative Negative code = 50018-5) Glucose, UA (test Negative Negative code = 365) Ketones, UA (test Negative Negative code = 2514-8) Bilirubin, UA (test Negative Negative code = 76598-1) Blood, UA (test code Trace Negative A = 51837-2) Nitrite, UA (test Negative Negative code = 5802-4) Leukocytes, UA (test Negative Negative code = 5799-2) Urobilinogen, UA 0.2 mg/dL 0.2-1 (test code = 71716-6) RBC, UA (test code = 2 See_Comment [Autom ated 66249-0) message] The system which generated this result transmit lane reference range : /HPF. The reference range was not used to interpret this result as normal/abnormal . WBC, UA (test code = 1 See_Comment [Autom ated 5821-4) message] The system which generated this result transmit lane reference range : /HPF. The reference range was not used to interpret this result as normal/abnormal . Bacteria, UA (test None Seen code = 92143-4) Mucus (test code = Rare 8247-9) Squam Epithel, UA 1 See_Comment [Automate d (test code = 76765-6) messag e] The system which generated this result transmit lane reference range : /HPF. The reference range was not used to interpret this result as normal/abnormal . Crystals, Urine (test None Seen code = 98136-1) Specimen Source (test code = 2795) TORRES (test code = TORRES) Towel Sewer ID - [auto]Towel Sewer ID - tech Lab Interpretation Abnormal (test code = 44606-2) [facility] Reflex to Culture 2021-03-09 11:21:00 Test Item Value Reference Range Interpretation Comments Color, UA (test code Light Yellow = 5778-6) Clarity, UA (test Clear code = 5767-9) Specific [place], UA 1.033 1.001-1.035 (test code = 5811-5) pH, UA (test code = 5.5 5.0-8.0 5803-2) Protein, UA (test Negative Negative code = 93390-2) Glucose, UA (test Negative Negative code = 365) Ketones, UA (test Negative Negative code = 2514-8) Bilirubin, UA (test Negative Negative code = 91135-1) Blood, UA (test code Trace Negative A = 85922-3) Nitrite, UA (test Negative Negative code = 5802-4) Leukocytes, UA (test Negative Negative code = 5799-2) Urobilinogen, UA 0.2 mg/dL 0.2-1 (test code = 10413-6) RBC, UA (test code = 2 See_Comment [Autom ated 21790-6) message] The system which generated this result transmit lane reference range : /HPF. The reference range was not used to interpret this result as normal/abnormal . WBC, UA (test code = 1 See_Comment [Autom ated 5821-4) message] The system which generated this result transmit lane reference range : /HPF. The reference range was not used to interpret this result as normal/abnormal . Bacteria, UA (test None Seen code = 69020-1) Mucus (test code = Rare 8247-9) Squam Epithel, UA 1 See_Comment [Automate d (test code = 65858-8) messag e] The system which generated this result transmit lane reference range : /HPF. The reference range was not used to interpret this result as normal/abnormal . Crystals, Urine (test None Seen code = 83443-2) Specimen Source (test code = 2795) TORRES (test code = TORRES) Towel Sewer ID - [auto]Towel Sewer ID - tech Lab Interpretation Abnormal (test code = 79095-1) [facility] + Reflex to Culture 2021-03-09 11:21:00 Test Item Value Reference Range Interpretation Comments Color, UA (test code Light Yellow = 5778-6) Clarity, UA (test Clear code = 5767-9) Specific [place], UA 1.033 1.001-1.035 (test code = 5811-5) pH, UA (test code = 5.5 5.0-8.0 5803-2) Protein, UA (test Negative Negative code = 10512-4) Glucose, UA (test Negative Negative code = 365) Ketones, UA (test Negative Negative code = 2514-8) Bilirubin, UA (test Negative Negative code = 34824-7) Blood, UA (test code Trace Negative A = 02091-2) Nitrite, UA (test Negative Negative code = 5802-4) Leukocytes, UA (test Negative Negative code = 5799-2) Urobilinogen, UA 0.2 mg/dL 0.2-1 (test code = 59946-3) RBC, UA (test code = 2 See_Comment [Autom ated 30438-9) message] The system which generated this result transmit lane reference range : /HPF. The reference range was not used to interpret this result as normal/abnormal . WBC, UA (test code = 1 See_Comment [Autom ated 5821-4) message] The system which generated this result transmit lane reference range : /HPF. The reference range was not used to interpret this result as normal/abnormal . Bacteria, UA (test None Seen code = 64430-6) Mucus (test code = Rare 8247-9) Squam Epithel, UA 1 See_Comment [Automate d (test code = 62040-6) messag e] The system which generated this result transmit lane reference range : /HPF. The reference range was not used to interpret this result as normal/abnormal . Crystals, Urine (test None Seen code = 12934-0) Specimen Source (test code = 2795) TORRES (test code = TORRES) Towel Sewer ID - [auto]Towel Sewer ID - tech Lab Interpretation Abnormal (test code = 60703-0) [facility] Reflex to Culture 2021-03-09 11:21:00 Test Item Value Reference Range Interpretation Comments Color, UA (test code Light Yellow = 5778-6) Clarity, UA (test Clear code = 5767-9) Specific [place], UA 1.033 1.001-1.035 (test code = 5811-5) pH, UA (test code = 5.5 5.0-8.0 5803-2) Protein, UA (test Negative Negative code = 99629-8) Glucose, UA (test Negative Negative code = 365) Ketones, UA (test Negative Negative code = 2514-8) Bilirubin, UA (test Negative Negative code = 46306-6) Blood, UA (test code Trace Negative A = 40631-5) Nitrite, UA (test Negative Negative code = 5802-4) Leukocytes, UA (test Negative Negative code = 5799-2) Urobilinogen, UA 0.2 mg/dL 0.2-1 (test code = 82874-6) RBC, UA (test code = 2 See_Comment [Autom ated 50391-3) message] The system which generated this result transmit lane reference range : /HPF. The reference range was not used to interpret this result as normal/abnormal . WBC, UA (test code = 1 See_Comment [Autom ated 5821-4) message] The system which generated this result transmit lane reference range : /HPF. The reference range was not used to interpret this result as normal/abnormal . Bacteria, UA (test None Seen code = 37158-0) Mucus (test code = Rare 8247-9) Squam Epithel, UA 1 See_Comment [Automate d (test code = 91849-6) messag e] The system which generated this result transmit lane reference range : /HPF. The reference range was not used to interpret this result as normal/abnormal . Crystals, Urine (test None Seen code = 29967-8) Specimen Source (test code = 2795) TORRES (test code = TORRES) Towel Sewer ID - [auto]Towel Sewer ID - tech Lab Interpretation Abnormal (test code = 57421-3) [facility]FLEX URINE [id number] 11:21:00 Test Item Value Reference Range Interpretation [...] = 1521) SOURCE(BEAKER) (test code = 2795) Towel Sewer ID - [auto]Towel Sewer ID - techHEMOGLOBIN [id number] 10:22:00 Test Item Value Reference Range Interpretation Comments HEMOGLOBIN A1C (BEAKER) (test code = 6.1 % 4.3-6.1 368) [id number] 06:48:00 Test Item Value Reference Range Interpretation Comments Magnesium (test code = 2.1 mg/dL 1.6-2.6 55038-0) TORRES (test code = TORRES) Towel Sewer ID - ELVIN W Lab Interpretation (test Normal code = 71065-9) [facility]2021-[facility] 06:48:00 Test Item Value Reference Range Interpretation Comments Magnesium (test code = 2.1 mg/dL 1.6-2.6 28688-2) TORRES (test code = TORRES) Towel Sewer ID - ELVIN W Lab Interpretation (test Normal code = 29607-1) [facility]21-[facility]-28 06:48:00 Test Item Value Reference Range Interpretation Comments Magnesium (test code = 2.1 mg/dL 1.6-2.6 98897-3) TORRES (test code = TORRES) Towel Sewer ID - ELVIN W Lab Interpretation (test Normal code = 46243-7) [facility]21-[facility]-28 06:48:00 Test Item Value Reference Range Interpretation Comments Magnesium (test code = 2.1 mg/dL 1.6-2.6 83946-1) TORRES (test code = TORRES) Towel Sewer ID - ELVIN W Lab Interpretation (test Normal code = 23225-5) [facility] Hospital[facility]OLIC [id number] 06:48:00 Test Item Value Reference Range Interpretation [...] 697) EGFR (BEAKER) (test 44 mL/min/1.[address] GFR IS code = 1092) sq m NOT ACCURATE CREATININE CLEARANCE IN PREDICTING GLOMERULAR FILTRATION RATE . ESTIMATED GFR I S NOT APPLICABLE FOR DIALYSIS PATIEN TS. Towel Sewer ID - ELVIN [id number] 06:48:00 Test Item Value Reference Range Interpretation Comments MAGNESIUM (BEAKER) (test code = 2.1 mg/dL 1.6-2.6 627) Towel Sewer ID Carlo OCONNOR WHEPATIC FUNCTION [id number] 06:48:00 Test Item Value Reference Range Interpretation [...] (test code = 30 U/L 6-55 347) Towel Sewer ID Carlo OCONNOR WPROTHROMBIN TIME/[id number] 06:32:00 Test Item Value Reference Range Interpretation Comments PROTIME (BEAKER) 12.9 seconds 11.9-14.2 (test code = 759) INR (BEAKER) (test 0.99 See_Comment [Automat ed message] code = 370) The system Pin or Peg generated this result transmitted ref erence range: <=5.90. The reference range was not used to int erpret this result as normal/abnormal . RECOMMENDED COUMADIN/WARFARIN INR THERAPY RANGESSTANDARD DOSE: 2.0 - 3.0 Includes: PROPHYLAXIS forvenous thrombosis, systemic embolization; TREATMENT for venous thrombosis and/or pulmonary embolus.HIGH RISK: Target INR is 2.5-3.5 for patients with mechanical heart valves.CBC W/PLT COUNT & AUTO DIFFERENTIAL 2021-03-09 06:29:00 Test Item Value Reference Range [...] code = 2801) MRI Brain wo contrast [id number] 16:25:00Patient Name: RIYA BLAKELY TRANDOB: 1950. Age: 67 years. Gender: Female.MR: [id number]. Location: [facility]. Provider: Hollie Osorio MD.EXAM: [...] intracranial abnormality. Mild chronicmicroangiopathic ischemic gliosis. SL: [id number]--Thoj by: Finesse Diasictated Date/time: 0 02/08/18 17:31Electronically Signed by: Finesse Dias MD 02/08/1817:40FINALREPORTUnRiver[facility] PhysiciansMRI Brain w/wo contrast [id number] 13:39:00 Test Item Value Reference Range Interpretation Comments Brain w/wo contrast MRI Cancel Reason: Exam (test code = Brain w/wo Replaced contrast MRI) [facility]
[2021-05-08] MEDS ORDERED: HYDROMORPHONE HCL 1 MG/ML INJ ONE ×2 (16:11→17:40)
[2021-05-08] MEDS ORDERED: ONDANSETRON 4 MG/2 ML VIAL ONE (16:11)
[2021-05-08 16:30] LABS: Absolute Lymphocytes (CBC) 1.8 K/uL (0.7-4.9); Basophils % 0.5 % (0-1.3); Hematocrit 31.5 % (36.0-45.0); Lymphocytes % 18.6 % (15.3-44.8); MPV 6.8 fL (7.6-11.3); RBC Red Blood Cell Count 3.55 M/uL (3.86-4.86)
[2021-05-08 16:53] LABS: ALT/SGPT 87 U/L (12-78); AST/SGOT 55 U/L (15-37); Albumin 3.6 g/dL (3.4-5.0); Alkaline Phosphatase 70 U/L (45-117); BUN Blood Urea Nitrogen 11 mg/dL (7-18); Bicarbonate 25 mmol/L (21-32); Bilirubin Direct < 0.1 mg/dL (0-0.2); Bilirubin Total 0.2 mg/dL (0.2-1.0); Glucose Level 93 mg/dL (74-106); Lipase 547 U/L (73-393); Protein, Total 8.3 g/dL (6.4-8.2); Sodium Level 140 mmol/L (136-145)
[2021-05-08] MEDS ORDERED: Ringers Lactate 1,000 ML IV ONE (17:40)
--- NOTE | 2021-05-08 18:28 | RAD REPORT ---
EXAM DESCRIPTION: CT - Abdomen Pelvis W Contrast - 05/08/2021 6:00 pm CLINICAL HISTORY: Abdominal pain COMPARISON: March 2021 TECHNIQUE: Computed axial tomography of the abdomen pelvis was obtained. 100 cc Isovue-300 was admin istered intravenously. Oral contrast was not requested which limits evaluation of bowel. All CT scans are performed using dose optimization technique as appropriate and may include automated exposure control or mA/KV adjustment according to patient size. FINDINGS: Cholecystectomy. Pneumobilia and dilatation of biliary tree unchanged. A vague 7 millimeter hypodense area dome of the liver. This is not clearly seen on the prior exam Spleen, pancreas, adrenal and kidneys appear unremarkable. There is no evidence of diverticulitis. Cement has been placed into an L1 vertebral fracture Hysterectomy IMPRESSION: Pneumobilia and dilatation of the biliary tree unchanged. This should be correlated with appropriate liver enzymes Vague 7 millimeter hypodense area within the dome of the liver is nonspecific. Follow-up ultrasound i n 3 months recommended
[2021-05-08] MEDS ORDERED: KETOROLAC 30 MG/ML INJ ONE (19:37)
[2021-05-08] MEDS ORDERED: MEPERIDINE HCL 50 MG/ML ONE (20:01)
--- NOTE | 2021-05-08 20:21 | EDPHYS ---
Physician Documentation [facility] Aramis Name: Alberto Botello Age: 70 yrs Sex: Female : 1950 Arrival Date: 05/08/2021 Time: 15:09 Bed 30 Private MD: ED Physician Jonathan Arias HPI: 05/08 17:24 This 70 yrs old Female presents to ER via Ambulatory with complaints of Abdominal Pain. jmm 17:24 Onset: The symptoms/episode began/occurred gradually, 1 week(s) ago. The symptoms do jmm not radiate. Associated signs and symptoms: Pertinent negatives: diarrhea, vomiting. The symptoms are described as achy. This is a 70-year-old female that presents to the emergency department with complaints of ongoing abdominal pain. The daughter states that the patient was recently discharged from [facility] in the [facility]. Patient had an ERCP performed which did not reveal any biliary tree stones. Family was advised that this is chronic pain and follow-up with pain management. The pain intensified after eating yesterday. Patient had broccoli cheddar soup.. Historical: - Allergies: 15:21 No Known Allergies; ss - PMHx: 15:21 Anxiety; Chronic pain; Diabetes - NIDDM; Hepatitis; Hypertension; Osteoporosis; ss Pancreatitis; - PSHx: 15:21 Cholecystectomy; ss - Immunization history:: Client reports receiving the 2nd dose of the Covid vaccine. - Social history:: Smoking status: Patient denies any tobacco usage or history of. - Family history:: not pertinent. - Code Status:: Full code. ROS: 17:24 Constitutional: Negative for fever, chills, and weight loss, Cardiovascular: Negative jmm for chest pain, palpitations, and edema, Respiratory: Negative for shortness of breath, cough, wheezing, and pleuritic chest pain. 17:24 Abdomen/GI: Positive for abdominal pain. 17:24 All other systems are negative. Exam: 17:24 Head/Face: atraumatic. Eyes: EOMI, no conjunctival erythema appreciated ENT: Moist jmm Mucus Membranes Neck: Trachea midline, Supple Chest/axilla: Normal chest wall appearance and motion. Cardiovascular: Regular rate and rhythm. No edema appreciated Respiratory: Normal respirations, no respiratory distress appreciated 17:24 Back: Normal ROM Skin: General appearance color normal MS/ Extremity: Moves all extremities, no obvious deformities appreciated, no edema noted to the lower extremities Neuro: Awake and alert, normal gait Psych: Behavior is normal, Mood is normal, Patient is cooperative and pleasant 17:24 Constitutional: The patient appears alert, awake, uncomfortable. 17:24 Abdomen/GI: Inspection: abdomen appears normal, Bowel sounds: normal, Palpation: soft, mild abdominal tenderness, in the epigastric area and left upper quadrant. Vital Signs: 15:15 Resp 18; Weight 61.69 kg; Height 5 ft. 0 in. (152.40 cm); Pain 10/10; ss 15:24 BP 166 / 101; Pulse 98; Temp 97.4(TE); Pulse Ox 99% ; ss 15:15 Body Mass Index 26.56 (61.69 kg, 152.40 cm) ss MDM: 15:42 Patient medically screened. [facility] 20:18 Data reviewed: vital signs, nurses notes. Counseling: I had a detailed discussion with carri the patient and/or guardian regarding: the historical points, exam findings, and any diagnostic results supporting the discharge/admit diagnosis, lab results, radiology results, the need for outpatient follow up, to return to the emergency department if symptoms worsen or persist or if there are any questions or concerns that arise at home. ED course: I discussed labs and results with the gastroenterology group from [facility] in the [facility]. State the patient is safe for home. I also discussed the patient with their pain management doctor who will see her on Tuesday. I also discussed the patient with Dr. Howard, who is the patient's primary vehicle safety inspector who also believes patient is safe for dispo. Patient continually complains of pain in spite of multiple pain medications given, IV fluids given to the patient. No vomiting appreciated here. Patient and family advised to follow-up with pain management/gastroenterology for further evaluation and otherwise given strict return precautions.. 05/08 15:44 Order name: Basic Metabolic Panel; Complete Time: 16:54 [facility] 05/08 15:44 Order name: CBC with Diff; Complete Time: 16:35 [facility] 05/08 15:44 Order name: Hepatic Function; Complete Time: 16:54 [facility] 05/08 15:44 Order name: Lipase; Complete Time: 16:54 [facility] 05/08 17:08 Order name: Lipid Profile; Complete Time: 17:44 [facility] 05/08 17:28 Order name: COVID-19 : Document "Date of Symptom Onset" if Symptomatic. [facility] 05/08 17:31 Order name: CT Abd/Pelvis - IV Contrast Only; Complete Time: 18:29 [facility] 05/08 19:37 Order name: SARS-COV-2 RT PCR; Complete Time: 19:40 [facility] 05/08 15:44 Order name: IV Saline Lock; Complete Time: 16:24 [facility] 05/08 15:44 Order name: Labs collected and sent; Complete Time: 16:24 [facility] Administered Medications: 16:25 Drug: Dilaudid (HYDROmorphone) 1 mg Route: IVP; Site: left wrist; kh1 16:25 Drug: Zofran (Ondansetron) 4 mg Route: IVP; Site: right wrist; kh1 17:25 Drug: Lactated Ringers Solution 1000 ml Route: IV; Rate: 1000 bolus; Site: left wrist; kh1 17:26 Drug: Dilaudid (HYDROmorphone) 1 mg Route: IVP; Site: left wrist; kh1 18:46 Follow up: Response: Pain is decreased [facility] 19:19 Drug: Ketorolac 30 mg Route: IVP; Site: left hand; 3 19:51 Follow up: Response: No adverse reaction [facility] 19:51 Drug: Demerol (meperidine) 50 mg Route: IVP; Site: right antecubital; 3 Disposition Summary: 05/08/21 20:20 Discharge Ordered Location: Home [facility] Condition: Stable [facility] Diagnosis - Abdominal pain, unspecified [facility] Followup: jm - With: Private Physician - When: 2 - 3 days - Reason: Recheck today's complaints, Continuance of care, Re-evaluation by your physician Discharge Instructions: - Discharge Summary Sheet jm - Abdominal Pain, Adult jmm - Clear Liquid Diet, Adult jm Forms: - Medication Reconciliation Form [facility] - Thank You Letter [facility] - Antibiotic Education jmm - Prescription Opioid Use [facility] Signatures: Dispatcher [employer] EDSteven Benson PA PA jmm Smirch, Shelby, RN RN Ruel Cantu PA PA [facility] Yamila Palomares RN RN 3 Melba Hernandez [facility] Corrections: (The following items were deleted from the chart) 18:42 17:29 CORONAVIRUS ordered. EDMS EDMS
--- NOTE | 2021-05-08 20:21 | ER ---
Nurse's Notes [facility] Name: Alberto Botello Age: 70 yrs Sex: Female : 1950 Arrival Date: 05/08/2021 Time: 15:09 Bed 30 Private MD: Diagnosis: Abdominal pain, unspecified Presentation: 05/08 15:15 Chief complaint: Patient states: Seen at [facility] Tuesday in ER and reports that ss she had multiple scans and was told that she had a stone stuck in her bile duct, but followed up with Dr. Shelton who reviewed all her test results and told her that does not in fact have a stone stuck and that she just has chronic abd pain. Daughter attempted to call local pain management doctor, but could not get her in today. PT c/o abd pain x months. Coronavirus screen: Client denies travel out of the [place] in the last 14 days. Ebola Screen: Patient denies exposure to infectious person. Patient denies travel to an Ebola-affected area in the 21 days before illness onset. Initial Sepsis Screen: Does the patient meet any 2 criteria? No. Patient's initial sepsis screen is negative. Does the patient have a suspected source of infection? No. Patient's initial sepsis screen is negative. Risk Assessment: Do you want to hurt yourself or someone else? Patient reports no desire to harm self or others. Onset of symptoms is unknown. 15:15 Method Of Arrival: Ambulatory ss 15:15 Acuity: ART 3 ss Triage Assessment: 18:32 General: Appears in no apparent distress. uncomfortable, well groomed. Pain: Complains kh1 of pain in abdomen Pain does not radiate. Pain Quality of pain is described as sharp, Pain began gradually, Is continuous, Alleviated by Aggravated by eating. 18:34 General: Behavior is calm, cooperative, appropriate for age. kh1 Historical: - Allergies: 15:21 No Known Allergies; ss - PMHx: 15:21 Anxiety; Chronic pain; Diabetes - NIDDM; Hepatitis; Hypertension; Osteoporosis; ss Pancreatitis; - PSHx: 15:21 Cholecystectomy; ss - Immunization history:: Client reports receiving the 2nd dose of the Covid vaccine. - Social history:: Smoking status: Patient denies any tobacco usage or history of. - Family history:: not pertinent. - Code Status:: Full code. Screenin:30 Abuse screen: Denies threats or abuse. Abuse screen: Denies threats or abuse. [facility] Nutritional screening: No deficits noted. Tuberculosis screening: No symptoms or risk factors identified. Fall Risk Ambulatory Aid- Crutches/Cane/Walker (15 pts). Assessment: 18:33 GI: Bowel sounds Abd is soft Abdomen is tender to palpation. [facility] Vital Signs: 15:15 Resp 18; Weight 61.69 kg; Height 5 ft. 0 in. (152.40 cm); Pain 10/10; ss 15:24 BP 166 / 101; Pulse 98; Temp 97.4(TE); Pulse Ox 99% ; ss 15:15 Body Mass Index 26.56 (61.69 kg, 152.40 cm) ED Course: 15:09 Patient arrived in ED. ds1 15:20 Triage completed. ss 15:21 Arm band placed on right wrist. 15:28 Steven Shea PA is PHCP. [facility] 15:28 Jonathan Arias MD is Attending Physician. [facility] 15:45 Melba Hernandez is Primary Nurse. kh1 16:24 Inserted saline lock: 22 gauge in left antecubital area, using aseptic technique. 16:27 Basic Metabolic Panel Sent. kh1 16:27 CBC with Diff Sent. kh1 16:27 Hepatic Function Sent. kh1 16:27 Lipase Sent. kh1 16:27 Basic Metabolic Panel Sent. kh1 17:26 Lipid Profile Sent. kh1 18:01 CT Abd/Pelvis - IV Contrast Only In Process Unspecified. EDMS 18:30 Patient has correct armband on for positive identification. Placed in gown. Bed in low kh1 position. Call light in reach. Side rails up X 1. 18:30 No provider procedures requiring assistance completed. 1 18:45 COVID-19 : Document "Date of Symptom Onset" if Symptomatic. Sent. [facility] Administered Medications: 16:25 Drug: Dilaudid (HYDROmorphone) 1 mg Route: IVP; Site: left wrist; kh1 16:25 Drug: Zofran (Ondansetron) 4 mg Route: IVP; Site: right wrist; kh1 17:25 Drug: Lactated Ringers Solution 1000 ml Route: IV; Rate: 1000 bolus; Site: left wrist; kh1 17:26 Drug: Dilaudid (HYDROmorphone) 1 mg Route: IVP; Site: left wrist; kh1 18:46 Follow up: Response: Pain is decreased 1 19:19 Drug: Ketorolac 30 mg Route: IVP; Site: left hand; lh3 19:51 Follow up: Response: No adverse reaction 3 19:51 Drug: Demerol (meperidine) 50 mg Route: IVP; Site: right antecubital; 3 Outcome: 20:20 Discharge ordered by . carri 20:53 Discharged to home via wheelchair. 3 20:53 Condition: stable 20:53 Discharge instructions given to patient, family, Instructed on discharge instructions, follow up and referral plans. Demonstrated understanding of instructions, follow-up care. 21:14 Patient left the ED. 3 Signatures: Dispatcher [employer] EDMS Steven Shea PA PA jmm Sanford, Demi ds1 Kerry Lucas RN RN Yamila Palomares RN RN [facility] Melba Hernandez [facility]
[2021-05-08 21:45] VITALS: BP 166/101; TEMP 97.4; O2SAT 99
== END 2021-05-08 21:14 | disposition home or self-care (01) ==
LOC: ER 15:08
DX: R10.12 Left upper quadrant pain (principal); G89.29 Other chronic pain; I10 Essential (primary) hypertension
CPT/HCPCS: 85025; 80048; 36415; 80061; 80076; 83690; 74177; 99284; U0003; Q9967; J2175; J1170 ×2; J7120; J2405

== ENCOUNTER 2021-06-04 17:42 | Emergency (ER) | payer OTHER ==
[2021-06-04 18:48] LABS: Basophils % 0.3 % (0-1.3); Hematocrit 31.3 % (36.0-45.0); Lymphocytes % 18.5 % (15.3-44.8); MPV 7.4 fL (7.6-11.3); RBC Red Blood Cell Count 3.45 M/uL (3.86-4.86)
[2021-06-04] MEDS ORDERED: HYDROMORPHONE HCL 0.5 MG/0.5 ML INJ ONE (18:50)
[2021-06-04] MEDS ORDERED: ONDANSETRON 4 MG/2 ML VIAL ONE (18:50)
[2021-06-04 19:11] LABS: ALT/SGPT 28 U/L (12-78); AST/SGOT 16 U/L (15-37); Albumin 3.5 g/dL (3.4-5.0); Alkaline Phosphatase 74 U/L (45-117); BUN Blood Urea Nitrogen 18 mg/dL (7-18); Bicarbonate 26 mmol/L (21-32); Bilirubin Direct < 0.1 mg/dL (0-0.2); Bilirubin Total 0.2 mg/dL (0.2-1.0); Glucose Level 167 mg/dL (74-106); Lipase 342 U/L (73-393); Potassium 3.9 mmol/L (3.5-5.1); Protein, Total 7.8 g/dL (6.4-8.2); Sodium Level 136 mmol/L (136-145)
--- NOTE | 2021-06-04 19:15 | RAD REPORT ---
EXAM DESCRIPTION: CT - Abdomen Pelvis Wo Contrast - 06/04/2021 6:59 pm CLINICAL HISTORY: Abdominal pain. RUQ Pain COMPARISON: Abdomen Pelvis W Contrast dated 06/03/2021 TECHNIQUE: CT imaging of the abdomen and pelvis was performed without contrast. Solid organ, bowel a nd vascular assessment is limited due to lack of IV and oral contrast. All CT scans are performed using dose optimization technique as appropriate and may include automated exposure control or mA/KV adjustment according to patient size. FINDINGS: The lower lung taylor are clear.Cholecystectomy. The liver, spleen, pancreas, adrenal glands and kidneys are within normal limits for a limited non-co ntrast examination.Moderate pneumobilia. No bowel obstruction, free air, free fluid or abscess. Mild mucosal thickening involves the colon sug gesting a mild colitis. The appendix is not identified as a discrete structure, however, no secondary findings of appendicitis are identified. Mild compression fracture affects L1 for with vertebroplasty cement in place. IMPRESSION: Mild diffuse colitis pattern is present. A limited non-contrast examination was performed as detailed.
--- NOTE | 2021-06-04 19:28 | EDPHYS ---
Physician Documentation [facility] Name: Alberto Botello Age: 70 yrs Sex: Female : 1950 Arrival Date: 06/04/2021 Time: 17:43 Bed 24 Private MD: Alis Jamison H ED Physician Reji Carson HPI: 06/04 18:21 This 70 yrs old Female presents to ER via Ambulatory with complaints of Abdominal kdr Pain. 18:21 The patient presents with abdominal pain in the right upper quadrant. Onset: The kdr symptoms/episode began/occurred gradually, Since Tuesday. The symptoms do not radiate. Associated signs and symptoms: none. The symptoms are described as achy, constant, crampy, sharp, vague. Modifying factors: The symptoms are alleviated by nothing, the symptoms are aggravated by touching the area, walking. Severity of pain: At its worst the pain was moderate severe just prior to arrival, in the emergency department the pain is unchanged. Her daughter relates that she has had pain similar to this in the past but is normally resolved spontaneously. The patient has been recently seen by a physician: The patient had an outpatient CT abdomen yesterday. That record was reviewed and noted that no acute intra-abdominal process was seen. There was stool throughout the colon.. Historical: - Allergies: 17:51 No Known Allergies; kg - Home Meds: 17:51 alprazolam 2 mg Oral tab nightly [Active]; Amitiza 24 mcg Oral cap 1 cap [Active]; kg benztropine 1 mg Oral tab 1 tab once daily [Active]; citalopram 20 mg tab 1 tab once daily [Active]; famotidine 20 mg Oral tab 1 tab 2 times per day [Active]; lisinopril 10 mg Oral tab 1 tab once daily [Active]; risperadone 0.5 daily [Active]; Linzess 145 mcg Oral cap 1 cap once daily [Active]; ursodiol 500 mg Oral tab [Active]; Protonix 40 mg Oral TbEC 2 tabs 2 times per day [Active]; [place] 7.5-325 mg Oral tab 1 tab every 6 hours [Active]; Vitamin D Oral 20151 unit daily [Active]; PreserVision Lutein 226 mg-200 unit -5 mg-0.8 mg oral cap [Active]; 18:50 Fish Oil 1,200 (144-216) mg Oral cap daily [Active]; risedronate 70 Oral 1 tab once oh daily [Active]; Slow-Mag 71.5 mg Oral TbEC daily [Active]; tramadol 50 mg Oral tab 1 tab every 6 hours for Pain [Active]; - PMHx: 17:51 Anxiety; Chronic pain; Diabetes - NIDDM; Hepatitis; Hypertension; Osteoporosis; kg Pancreatitis; - PSHx: 17:51 Cholecystectomy; kg - Immunization history:: Adult Immunizations up to date, Client reports receiving the 2nd dose of the Covid vaccine, Date received: November 11, 2020 [employer] Client reports receiving the 1st dose of the Covid vaccine, October 21, 2020 [employer]. - Social history:: Smoking status: Patient denies any tobacco usage or history of. ROS: 18:21 Constitutional: Negative for fever, chills, and weight loss, Eyes: Negative for injury, kdr pain, redness, and discharge, ENT: Negative for injury, pain, and discharge, Neck: Negative for injury, pain, and swelling, Cardiovascular: Negative for chest pain, palpitations, and edema, Respiratory: Negative for shortness of breath, cough, wheezing, and pleuritic chest pain, Back: Negative for injury and pain, : Negative for injury, bleeding, discharge, and swelling, MS/Extremity: Negative for injury and deformity, Skin: Negative for injury, rash, and discoloration, Neuro: Negative for headache, weakness, numbness, tingling, and seizure activity. Psych: Negative for depression, anxiety, suicide ideation, homicidal ideation, and hallucinations, Allergy/Immunology: Negative for hives, rash, and allergies, Endocrine: Negative for neck swelling, polydipsia, polyuria, polyphagia, and marked weight changes, Hematologic/Lymphatic: Negative for swollen nodes, abnormal bleeding, and unusual bruising. 18:21 Abdomen/GI: Positive for abdominal pain, Negative for nausea, vomiting, and diarrhea. Exam: 18:21 Constitutional: This is a well developed, well nourished patient who is awake, alert, kdr and in mild to moderate distress. Head/Face: Normocephalic, atraumatic. Eyes: Pupils equal round and reactive to light, extra-ocular motions intact. Lids and lashes normal. Conjunctiva and sclera are non-icteric and not injected. Cornea within normal limits. Periorbital areas with no swelling, redness, or edema. Neck: Trachea midline, no thyromegaly or masses palpated, and no cervical lymphadenopathy. Supple, full range of motion without nuchal rigidity, or vertebral point tenderness. No Meningismus. Chest/axilla: Normal chest wall appearance and motion. Nontender with no deformity. No lesions are appreciated. Cardiovascular: Regular rate and rhythm with a normal S1 and S2. No gallops, murmurs, or rubs. Normal PMI, no JVD. No pulse deficits. Respiratory: Lungs have equal breath sounds bilaterally, clear to auscultation and percussion. No rales, rhonchi or wheezes noted. No increased work of breathing, no retractions or nasal flaring. Back: No spinal tenderness. No costovertebral tenderness. Full range of motion. Skin: Warm, dry with normal turgor. Normal color with no rashes, no lesions, and no evidence of cellulitis. MS/ Extremity: Pulses equal, no cyanosis. Neurovascular intact. Full, normal range of motion. Neuro: Awake and alert, GCS 15, oriented to person, place, time, and situation. Cranial nerves II-XII grossly intact. Motor strength 5/5 in all extremities. Sensory grossly intact. Cerebellar exam normal. Normal gait. Psych: Awake, alert, with orientation to person, place and time. Behavior, mood, and affect are within normal limits. 18:21 Abdomen/GI: Inspection: distension, Bowel sounds: active, all quadrants, Palpation: soft, moderate abdominal tenderness, in the right upper quadrant. Vital Signs: 17:47 Pulse 88; Resp 20; Temp 98.8(TE); Pulse Ox 98% on R/A; Weight 56.7 kg (R); Height 5 ft. kg 0 in. (152.40 cm) (R); Pain 10/10; 18:49 BP 164 / 93; Pulse 82; Resp 19; Pulse Ox 98% ; oh 20:03 BP 197 / 83; Pulse 87; Resp 19; Temp 98.8; Pulse Ox 99% ; wr 17:47 Body Mass Index 24.41 (56.70 kg, 152.40 cm) kg MDM: 18:21 Data reviewed: vital signs, nurses notes, lab test result(s), radiologic studies. kdr Counseling: I had a detailed discussion with the patient and/or guardian regarding: the historical points, exam findings, and any diagnostic results supporting the discharge/admit diagnosis, lab results, radiology results. 19:28 Patient medically screened. kdr 06/04 18:08 Order name: Basic Metabolic Panel kdr 06/04 18:08 Order name: CBC with Diff; Complete Time: 19:15 kdr 06/04 18:08 Order name: Hepatic Function kdr 06/04 18:08 Order name: Lipase; Complete Time: 19:15 kdr 06/04 18:09 Order name: Basic Metabolic Panel; Complete Time: 19:15 EDMS 06/04 18:09 Order name: Liver (Hepatic) Function; Complete Time: 19:15 EDSC 06/04 18:08 Order name: IV Saline Lock; Complete Time: 18:34 kdr 06/04 18:08 Order name: Labs collected and sent; Complete Time: 18:34 kdr 06/04 18:19 Order name: CT Abd/Pelvis - Without Contrast; Complete Time: 19:23 kdr Administered Medications: 18:25 Drug: Dilaudid (HYDROmorphone) 0.5 mg Route: IVP; Site: left hand; oh 19:59 Follow up: Response: No adverse reaction kc4 18:25 Drug: Zofran (Ondansetron) 4 mg Route: IVP; Site: left hand; oh 19:59 Follow up: Response: No adverse reaction kc4 19:59 Drug: Flagyl (metroNIDAZOLE) 500 mg Route: PO; kc4 20:00 Follow up: Response: No adverse reaction kc4 19:59 Drug: Cipro (ciprofloxacin) 500 mg Route: PO; kc4 20:00 Follow up: Response: No adverse reaction kc4 Disposition Summary: 06/04/21 19:28 Discharge Ordered Location: Home kdr Problem: an ongoing problem kdr Symptoms: have improved kdr Condition: Stable kdr Diagnosis - Abdominal pain, unspecified kdr - Upper abdominal pain, unspecified kdr - Infectious gastroenteritis and colitis, unspecified kdr - Constipation kdr Followup: kdr - With: Alis Jamison DO - When: 2 - 3 days - Reason: If symptoms return, Further diagnostic work-up, Recheck today's complaints, Continuance of care, Re-evaluation by your physician Discharge Instructions: - Discharge Summary Sheet kdr - Abdominal Pain, Adult, [id number] kdr - Colitis kdr Forms: - Medication Reconciliation Form kdr - Thank You Letter kdr - Antibiotic Education kdr - Prescription Opioid Use kdr Prescriptions: - Flagyl 500 mg Oral Tablet - take 1 tablet by ORAL route every 8 hours for 10 days; 30 tablet; Refills: 0, kdr Product Selection Permitted - Cipro 500 mg Oral Tablet - take 1 tablet by ORAL route every 12 hours for 10 days; 20 tablet; Refills: 0, kdr Product Selection Permitted Signatures: Dispatcher [employer] Reji Palumbo MD MD kdr Fredrick Nettles MD MD mh7 Desiree West, YOSVANY RN kg Brianna Carreon 4 Effie Hernandez, RN RN or
--- NOTE | 2021-06-04 19:28 | ER ---
Nurse's Notes [facility] Name: Alberto Botello Age: 70 yrs Sex: Female : 1950 Arrival Date: 06/04/2021 Time: 17:43 Bed 24 Private MD: Alis Jamison H Diagnosis: Abdominal pain, unspecified;Upper abdominal pain, unspecified;Infectious gastroenteritis and colitis, unspecified;Constipation Presentation: 06/04 17:47 Chief complaint: Patient states: Right sided abdominal pain x 1 week. Pt saw her GI kg Tuesday and had CT scan yesterday but hasnt gotten the results and pain hasnt let up. Coronavirus screen: Vaccine status: Patient reports receiving the 2nd dose of the covid vaccine. Date November 11, 2020 [employer] Patient reports receiving the 1st dose of the Covid vaccine. Date October 21, 2020 [employer]. Ebola Screen: Patient negative for fever greater than or equal to 101.5 degrees Fahrenheit, and additional compatible Ebola Virus Disease symptoms Patient denies exposure to infectious person. Patient denies travel to an Ebola-affected area in the 21 days before illness onset. Initial Sepsis Screen: Does the patient meet any 2 criteria? No. Patient's initial sepsis screen is negative. Does the patient have a suspected source of infection? No. Patient's initial sepsis screen is negative. Risk Assessment: Do you want to hurt yourself or someone else? Patient reports no desire to harm self or others. Onset of symptoms was May 28, 2021. 17:47 Method Of Arrival: Ambulatory kg 17:47 Acuity: ART 3 kg Triage Assessment: 17:51 General: Appears uncomfortable, Behavior is anxious, restless. Pain: Complains of pain kg in right upper quadrant and right lower quadrant Pain currently is 10 out of 10 on a pain scale. at worst was 10 out of 10 on a pain scale. GI: Reports lower abdominal pain, upper abdominal pain, Pain is 10 out of 10 on a pain scale. Historical: - Allergies: 17:51 No Known Allergies; kg - Home Meds: 17:51 alprazolam 2 mg Oral tab nightly [Active]; Amitiza 24 mcg Oral cap 1 cap [Active]; kg benztropine 1 mg Oral tab 1 tab once daily [Active]; citalopram 20 mg tab 1 tab once daily [Active]; famotidine 20 mg Oral tab 1 tab 2 times per day [Active]; lisinopril 10 mg Oral tab 1 tab once daily [Active]; risperadone 0.5 daily [Active]; Linzess 145 mcg Oral cap 1 cap once daily [Active]; ursodiol 500 mg Oral tab [Active]; Protonix 40 mg Oral TbEC 2 tabs 2 times per day [Active]; [place] 7.5-325 mg Oral tab 1 tab every 6 hours [Active]; Vitamin D Oral 51111 unit daily [Active]; PreserVision Lutein 226 mg-200 unit -5 mg-0.8 mg oral cap [Active]; 18:50 Fish Oil 1,200 (144-216) mg Oral cap daily [Active]; risedronate 70 Oral 1 tab once oh daily [Active]; Slow-Mag 71.5 mg Oral TbEC daily [Active]; tramadol 50 mg Oral tab 1 tab every 6 hours for Pain [Active]; - PMHx: 17:51 Anxiety; Chronic pain; Diabetes - NIDDM; Hepatitis; Hypertension; Osteoporosis; kg Pancreatitis; - PSHx: 17:51 Cholecystectomy; kg - Immunization history:: Adult Immunizations up to date, Client reports receiving the 2nd dose of the Covid vaccine, Date received: November 11, 2020 [employer] Client reports receiving the 1st dose of the Covid vaccine, October 21, 2020 [employer]. - Social history:: Smoking status: Patient denies any tobacco usage or history of. Screenin:56 Abuse screen: Denies threats or abuse. Denies injuries from another. Nutritional kg screening: No deficits noted. Tuberculosis screening: No symptoms or risk factors identified. Fall Risk None identified. Assessment: 18:47 General: Appears uncomfortable, Behavior is calm, cooperative, appropriate for age, oh Reports abdominal pain. Pain: Complains of pain in abdomen and right lower quadrant and right upper quadrant. Neuro: No deficits noted. Cardiovascular: No deficits noted. Respiratory: No deficits noted. GI: Abdomen is distended, Abdomen is tender to palpation Reports lower abdominal pain, upper abdominal pain, bloating, constipation. Vital Signs: 17:47 Pulse 88; Resp 20; Temp 98.8(TE); Pulse Ox 98% on R/A; Weight 56.7 kg (R); Height 5 ft. kg 0 in. (152.40 cm) (R); Pain 10/10; 18:49 BP 164 / 93; Pulse 82; Resp 19; Pulse Ox 98% ; oh 20:03 BP 197 / 83; Pulse 87; Resp 19; Temp 98.8; Pulse Ox 99% ; wr 17:47 Body Mass Index 24.41 (56.70 kg, 152.40 cm) kg ED Course: 17:43 Patient arrived in ED. am2 17:43 Alis Jamison DO is Private Physician. am2 17:51 Triage completed. kg 17:51 Arm band placed on right wrist. kg 17:56 Patient has correct armband on for positive identification. kg 17:56 No provider procedures requiring assistance completed. kg 18:07 Reji Carson MD is Attending Physician. kdr 18:34 Basic Metabolic Panel Sent. kj1 18:34 Hepatic Function Sent. kj1 18:46 Effie Hernandez, YOSVANY is Primary Nurse. oh 18:46 Effie Hernandez RN is Primary Nurse. oh 18:51 Inserted saline lock: 22 gauge in left wrist, using aseptic technique. Blood collected. oh 18:58 CT Abd/Pelvis - Without Contrast In Process Unspecified. EDMS 19:26 Alis Jamison DO is Referral Physician. kdr Administered Medications: 18:25 Drug: Dilaudid (HYDROmorphone) 0.5 mg Route: IVP; Site: left hand; oh 19:59 Follow up: Response: No adverse reaction kc4 18:25 Drug: Zofran (Ondansetron) 4 mg Route: IVP; Site: left hand; oh 19:59 Follow up: Response: No adverse reaction kc4 19:59 Drug: Flagyl (metroNIDAZOLE) 500 mg Route: PO; kc4 20:00 Follow up: Response: No adverse reaction kc4 19:59 Drug: Cipro (ciprofloxacin) 500 mg Route: PO; kc4 20:00 Follow up: Response: No adverse reaction kc4 Outcome: 19:28 Discharge ordered by . kdr 20:04 Patient left the ED. wr Signatures: Dispatcher [employer] EDMS Reji Carson MD MD kdr Ami Johnson am2 Celestina Hinkle kj1 Desiree West, RN RN kg Brianna Carreon kc4 Morgan Khan Oneka, RN RN oh
[2021-06-04] MEDS ORDERED: CIPROFLOXACIN HCL 500 MG TAB ONE (20:11)
[2021-06-04] MEDS ORDERED: metroNIDAZOLE 500 MG TABLET ONE (20:11)
[2021-06-04 21:18] VITALS: TEMP 98.8
[2021-06-04 21:21] VITALS: BP 197/83; O2SAT 99
== END 2021-06-04 20:04 | disposition home or self-care (01) ==
LOC: ER 17:42
DX: A09 Infectious gastroenteritis and colitis, unspecified (principal); K59.00 Constipation, unspecified; I10 Essential (primary) hypertension; E11.9 Type 2 diabetes mellitus without complications; F41.9 Anxiety disorder, unspecified
CPT/HCPCS: 85025; 80048; 36415; 80076; 83690; 74176; 96375; 96374; 99284; J1170; J2405

== ENCOUNTER 2021-06-11 23:52 | Emergency (ER) | payer OTHER ==
[2021-06-12 03:03] LABS: ALT/SGPT 22 U/L (12-78); AST/SGOT 18 U/L (15-37); Albumin 3.5 g/dL (3.4-5.0); Alkaline Phosphatase 59 U/L (45-117); BUN Blood Urea Nitrogen 24 mg/dL (7-18); Bicarbonate 21 mmol/L (21-32); Bilirubin Direct < 0.1 mg/dL (0-0.2); Bilirubin Total 0.2 mg/dL (0.2-1.0); Glucose Level 127 mg/dL (74-106); Lipase 649 U/L (73-393); Potassium 3.9 mmol/L (3.5-5.1); Protein, Total 7.9 g/dL (6.4-8.2); Sodium Level 141 mmol/L (136-145)
[2021-06-12] MEDS ORDERED: HYDROMORPHONE HCL 1 MG/ML INJ ONE (03:10)
[2021-06-12] MEDS ORDERED: ONDANSETRON 4 MG/2 ML VIAL ONE (03:11)
[2021-06-12 03:51] LABS: Absolute Lymphocytes (CBC) 1.3 K/uL (0.7-4.9); Basophils % 0.2 % (0-1.3); Hematocrit 34.8 % (36.0-45.0); MPV 7.3 fL (7.6-11.3); RBC Red Blood Cell Count 3.83 M/uL (3.86-4.86)
--- NOTE | 2021-06-12 04:29 | ER ---
Nurse's Notes [facility] Name: Alberto Botello Age: 70 yrs Sex: Female : 1950 Arrival Date: 06/11/2021 Time: 23:54 Bed 6 Private MD: Diagnosis: Other chronic pancreatitis;Abdominal pain, Generalized Presentation: 06/12 00:24 Chief complaint: Patient states: ongoing left sided abd pain with worsening today. hx sj1 of colitis. denies nausea and vomiting. c/o constipation, LBM this morning. Coronavirus screen: Vaccine status: Patient reports receiving the 2nd dose of the covid vaccine. Patient reports receiving the 1st dose of the Covid vaccine. Ebola Screen: Patient negative for fever greater than or equal to 101.5 degrees Fahrenheit, and additional compatible Ebola Virus Disease symptoms Patient denies exposure to infectious person. Patient denies travel to an Ebola-affected area in the 21 days before illness onset. Initial Sepsis Screen: Does the patient meet any 2 criteria? No. Patient's initial sepsis screen is negative. Does the patient have a suspected source of infection? No. Patient's initial sepsis screen is negative. Risk Assessment: Do you want to hurt yourself or someone else? Patient reports no desire to harm self or others. Onset of symptoms is unknown. 00:24 Method Of Arrival: Ambulatory sj1 00:24 Acuity: ART 3 sj1 Triage Assessment: 00:24 General: Appears uncomfortable, Behavior is cooperative. Pain: Complains of pain in sj1 left mid abd pain. EENT: No deficits noted. Neuro: No deficits noted. Cardiovascular: No deficits noted. Respiratory: No deficits noted. GI: Reports lower abdominal pain, constipation. : No deficits noted. : Reports "I have problems urinating" denies pain and burning. Derm: No deficits noted. Musculoskeletal: No deficits noted. - Immunization history:: Adult Immunizations up to date, Client reports receiving the 2nd dose of the Covid vaccine, Client reports receiving the 1st dose of the Covid vaccine. - Social history:: Smoking status: Patient denies any tobacco usage or history of. Patient/guardian denies using alcohol, street drugs, The patient lives with family. - Family history:: not pertinent. Screenin:33 Nutritional screening: No deficits noted. Tuberculosis screening: No symptoms or risk sj1 factors identified. Fall Risk None identified. Vital Signs: 00:24 BP 140 / 79 RA Sitting (auto/reg); Pulse 87; Resp 20; Temp 99.5(O); Pulse Ox 99% on sj1 R/A; Weight 56.7 kg (R); Height 5 ft. 0 in. (152.40 cm) (R); Pain 9/10; 04:14 BP 132 / 81; Pulse 78; Resp 17; Temp 98.3; Pulse Ox 99% on R/A; Pain 5/10; mr2 05:30 BP 128 / 78; Pulse 81; Resp 18; Pulse Ox 99% on R/A; Pain 2/10; wg 00:24 Body Mass Index 24.41 (56.70 kg, 152.40 cm) 1 ED Course: 06/11 23:54 Patient arrived in ED. 06/12 00:24 Arm band placed on right wrist. sj1 00:30 Triage completed. sj1 00:33 Patient has correct armband on for positive identification. sj1 01:32 Diego Patterson MD is Attending Physician. ma2 02:04 Sherman Pang, RN is Primary Nurse. mr2 02:47 Basic Metabolic Panel Sent. mr2 02:47 CBC with Diff Sent. mr2 02:47 Hepatic Function Sent. mr2 02:47 Lipase Sent. mr2 02:56 Abdomen In Process Unspecified. EDMS Administered Medications: 03:46 Not Given (Duplicate Order): Dilaudid (HYDROmorphone) 1 mg IVP once; RASS on ADMIN: mr2 Combtv4, Very Agttd3, Agttd2, Rstlss1, AlertClm0, Drwsy-1, Lt Sdtn-2, Mod Sdtn-3, Dp Sdtn-4, UnArsble-5 03:46 Drug: Dilaudid (HYDROmorphone) 1 mg Route: IM; Site: left deltoid; mr2 05:46 Follow up: Response: No adverse reaction; Pain is decreased wg 03:47 Not Given (changed routee): Zofran (Ondansetron) 4 mg IVP once; over 2 minutes mr2 Outcome: 04:28 Discharge ordered by . ma2 05:45 Discharged to home ambulatory, with family. wg 05:45 Condition: stable 05:45 Discharge instructions given to Instructed on discharge instructions, follow up and referral plans. Demonstrated understanding of instructions, follow-up care, medications. 05:46 Patient left the ED. wg Signatures: Dispatcher [employer] EDMS Diego Patterson MD MD ma2 Humaira Hamlin Liam, RN wg Reynard, Mike, RN RN mr2 Brittany Tucker RN RN sj1
--- NOTE | 2021-06-12 04:29 | EDPHYS ---
Physician Documentation [facility] Name: Alberto Botello Age: 70 yrs Sex: Female : 1950 Arrival Date: 06/11/2021 Time: 23:54 Bed 6 Private MD: ED Physician Diego Patterson HPI: 06/12 01:37 This 70 yrs old Female presents to ER via Ambulatory with complaints of Abdominal Pain ma2 - Left. 01:37 The patient presents with abdominal pain. Onset: The symptoms/episode began/occurred ma2 gradually, 1 day(s) ago. Associated signs and symptoms: Pertinent negatives: anorexia, diarrhea, dysuria, headache, vaginal discharge, vomiting. Severity of pain: At its worst the pain was mild in the emergency department the pain is unchanged. The patient has not experienced similar symptoms in the past, but family has similar symptoms. - Immunization history:: Adult Immunizations up to date, Client reports receiving the 2nd dose of the Covid vaccine, Client reports receiving the 1st dose of the Covid vaccine. - Social history:: Smoking status: Patient denies any tobacco usage or history of. Patient/guardian denies using alcohol, street drugs, The patient lives with family. - Family history:: not pertinent. ROS: 01:37 Constitutional: Negative for fever, chills, and weight loss. ma2 01:37 All other systems are negative. Exam: 01:37 Constitutional: This is a well developed, well nourished patient who is awake, alert, ma2 and in no acute distress. ENT: Nares patent. No nasal discharge, no septal abnormalities noted. Tympanic membranes are normal and external auditory canals are clear. Oropharynx with no redness, swelling, or masses, exudates, or evidence of obstruction, uvula midline. Mucous membranes moist. Neck: Trachea midline, no thyromegaly or masses palpated, and no cervical lymphadenopathy. Supple, full range of motion without nuchal rigidity, or vertebral point tenderness. No Meningismus. Chest/axilla: Normal chest wall appearance and motion. Nontender with no deformity. No lesions are appreciated. Cardiovascular: Regular rate and rhythm with a normal S1 and S2. No gallops, murmurs, or rubs. Normal PMI, no JVD. No pulse deficits. Respiratory: Lungs have equal breath sounds bilaterally, clear to auscultation and percussion. No rales, rhonchi or wheezes noted. No increased work of breathing, no retractions or nasal flaring. Abdomen/GI: Soft, non-tender, with normal bowel sounds. No distension or tympany. No guarding or rebound. No evidence of tenderness throughout. Skin: Warm, dry with normal turgor. Normal color with no rashes, no lesions, and no evidence of cellulitis. MS/ Extremity: Pulses equal, no cyanosis. Neurovascular intact. Full, normal range of motion. Neuro: Awake and alert, GCS 15, oriented to person, place, time, and situation. Cranial nerves II-XII grossly intact. Motor strength 5/5 in all extremities. Sensory grossly intact. Cerebellar exam normal. Normal gait. Vital Signs: 00:24 BP 140 / 79 RA Sitting (auto/reg); Pulse 87; Resp 20; Temp 99.5(O); Pulse Ox 99% on sj1 R/A; Weight 56.7 kg (R); Height 5 ft. 0 in. (152.40 cm) (R); Pain 9/10; 04:14 BP 132 / 81; Pulse 78; Resp 17; Temp 98.3; Pulse Ox 99% on R/A; Pain 5/10; mr2 05:30 BP 128 / 78; Pulse 81; Resp 18; Pulse Ox 99% on R/A; Pain 2/10; wg 00:24 Body Mass Index 24.41 (56.70 kg, 152.40 cm) 1 MDM: 01:37 Patient medically screened. [facility] 01:37 Differential diagnosis: gastritis, gastroesophageal reflux disease, Irritable bowel ma2 syndrome, non-specific abd pain, pancreatitis. 04:27 Data reviewed: vital signs, nurses notes. Counseling: I had a detailed discussion with ma2 the patient and/or guardian regarding: the historical points, exam findings, and any diagnostic results supporting the discharge/admit diagnosis, the presence of at least one elevated blood pressure reading (>120/80) during this emergency department visit, the need for outpatient follow up. Response to treatment: the patient's symptoms have markedly improved after treatment. 06/12 00:29 Order name: Basic Metabolic Panel; Complete Time: 03:24 [facility] 06/12 00:29 Order name: CBC with Diff; Complete Time: 04:27 [facility] 06/12 00:29 Order name: Hepatic Function; Complete Time: 03:24 ma2 06/12 00:29 Order name: Lipase; Complete Time: 03:24 ma2 06/12 02:42 Order name: Abdomen EDMS 06/12 00:29 Order name: Labs collected and sent; Complete Time: 02:47 ma2 06/12 00:29 Order name: Urine Dipstick-Ancillary (obtain specimen) ma2 Administered Medications: 03:46 Not Given (Duplicate Order): Dilaudid (HYDROmorphone) 1 mg IVP once; RASS on ADMIN: mr2 Combtv4, Very Agttd3, Agttd2, Rstlss1, AlertClm0, Drwsy-1, Lt Sdtn-2, Mod Sdtn-3, Dp Sdtn-4, UnArsble-5 03:46 Drug: Dilaudid (HYDROmorphone) 1 mg Route: IM; Site: left deltoid; mr2 05:46 Follow up: Response: No adverse reaction; Pain is decreased wg 03:47 Not Given (changed routee): Zofran (Ondansetron) 4 mg IVP once; over 2 minutes mr2 Disposition Summary: 06/12/21 04:28 Discharge Ordered Location: Home ma2 Condition: Stable ma2 Diagnosis - Other chronic pancreatitis ma2 - Abdominal pain, Generalized ma2 Followup: ma2 - With: Private Physician - When: Tomorrow - Reason: If symptoms return Discharge Instructions: - Discharge Summary Sheet ma2 - Abdominal Pain, Adult ma2 - Acute Pancreatitis, [id number] ma2 - Chronic Pancreatitis ma2 Forms: - Medication Reconciliation Form ma2 - Thank You Letter ma2 - Antibiotic Education ma2 - Prescription Opioid Use ma2 Signatures: Dispatcher [employer] EDMS Diego Patterson MD MD ma2 Sherman Pang RN RN mr2 Brittany Tucker RN RN sj1 Mehul Elizabeth RN wg Corrections: (The following items were deleted from the chart) 02:42 00:29 Abdomen Pelvis W Con+CT.RAD.BRZ ordered. EDMS EDMS
[2021-06-12 05:51] VITALS: O2SAT 99
[2021-06-12 05:52] VITALS: TEMP 98.3
[2021-06-12 05:54] VITALS: BP 128/78
--- NOTE | 2021-06-12 13:55 | RAD REPORT ---
EXAM DESCRIPTION: CT - Abdomen Pelvis Wo Contrast - 06/12/2021 6:35 am CLINICAL HISTORY: 70 years, Female, ABD PAIN COMPARISON: 06/04/2021. CLINICAL HISTORY: Multiple transaxial tomograms of the abdomen and pelvis were performed from the michelle ng bases to the symphysis pubis 5 mm slice thickness at 5 mm interval reconstruction, without adminis tration of IV and oral contrast. Multiplanar reformats in the sagittal and coronal plane were generated and reviewed. This exam was performed according to our departmental dose-optimization protocol, which includes auto mated exposure control, adjustment of the mA and/or kV according to patient size and/or use of iterat tonio reconstruction technique. FINDINGS: The lack of IV and oral contrast limits evaluation of solid organs, subtle lesions cannot be excluded. The lung bases demonstrate minimal dependent ectatic changes. Minimal aortic valvular calcification. Grossly the unopacified liver, pancreas, spleen and adrenal glands demonstrate to be within normal li mits, no significant focal lesions were identified. There is air within the biliary system and CBD most likely related to previous sphincterotomy. There is surgical clips within the gallbladder fossa corresponding to previous cholecystectomy. The kidneys demonstrate grossly unremarkable. There is no evidence for nephrolithiasis and/or hydro nephrosis. No focal masses were demonstrated. The ureters displays normal appearance with normal caliber, no hydroureter was seen. Grossly the unopacified stomach, small bowel and large bowel demonstrate to be within normal limits. There is no evidence for bowel dilatation/or free air. Previous described inflammatory changes within the large bowel are no longer visualized. The urinary bladder demonstrate to be within normal limits. The uterus is absent. There are no adnexa l masses The aorta demonstrate minimal atherosclerotic disease. There is no retroperitoneal lymphad enopathy. There is no evidence for ascites. The bone windows demonstrate diffuse bony osteopenia. A gain there is vertebroplasty at L1 vertebral body. Injection granulomas right hip joint. Prior fractu re inferior left pubic ramus. IMPRESSION: No evidence of nephrolithiasis and/or hydronephrosis. Status post cholecystectomy. Pneumobilia most likely related to previous sphincterotomy. Status post hysterectomy. Electronically signed by: Maximilian Cooley MD 06/12/2021 3:21 AM CDT Due to temporary technical issues with the PACS/Fluency reporting system, reports are being signed by the in house radiologists without review as a courtesy to insure prompt reporting. The interpreting radiologist is fully responsible for the content of the report.
== END 2021-06-12 05:46 | disposition home or self-care (01) ==
LOC: ER 23:52
DX: K86.1 Other chronic pancreatitis (principal)
CPT/HCPCS: 36415; 74176; 80048; 80076; 83690; 85025; 96372; 99283; J1170; J2405

== ENCOUNTER 2021-06-13 17:35 | Inpatient (IN) | payer OTHER ==
[2021-06-13] MEDS ORDERED: ONDANSETRON 4 MG/2 ML VIAL ONE (18:19)
[2021-06-13] MEDS ORDERED: HYDROMORPHONE HCL 1 MG/ML INJ ONE ×2 (18:19→20:38)
[2021-06-13] MEDS ORDERED: NA CHLORIDE 0.9% 1,000 ML ONE (18:19)
[2021-06-13 19:10] LABS: Absolute Lymphocytes (CBC) 1.6 K/uL (0.7-4.9); Basophils % 0.2 % (0-1.3); Hematocrit 27.5 % (36.0-45.0); Lymphocytes % 12.2 % (15.3-44.8); MPV 7.6 fL (7.6-11.3); RBC Red Blood Cell Count 3.06 M/uL (3.86-4.86)
[2021-06-13 19:14] LABS: Albumin 3.4 g/dL (3.4-5.0); Bilirubin Direct 0.1 mg/dL (0-0.2); Bilirubin Total 0.3 mg/dL (0.2-1.0); Potassium 3.2 mmol/L (3.5-5.1); Protein, Total 7.7 g/dL (6.4-8.2)
--- NOTE | 2021-06-13 19:37 | RAD REPORT ---
EXAM DESCRIPTION: CTAbdomen Pelvis W Contrast - 06/13/2021 7:27 pm CLINICAL HISTORY: . ABD PAIN COMPARISON: <Comparisons> TECHNIQUE: Biphasic CT imaging of the abdomen and pelvis was performed with 100 ml non-ionic IV cont rast. All CT scans are performed using dose optimization technique as appropriate and may include automated exposure control or mA/KV adjustment according to patient size. FINDINGS: Lower chest: No acute abnormality. Small hiatal hernia. Liver: No acute abnormality or suspicious lesions. Biliary: Pneumobilia. Extrahepatic biliary ductal dilatation may be related to the postcholecystectom y state. Stomach: No significant focal abnormality. Duodenum: No significant focal abnormality. Pancreas: No significant abnormality. Spleen: No significant abnormality. Adrenal: No suspicious lesions. Kidney/ureter: No hydronephrosis. No renal calculi. Retroperitoneum: No retroperitoneal adenopathy. Vascular: No aneurysm. Mild atherosclerosis. Bowel: Scattered air-fluid levels in the colon. No bowel obstruction. Normal appendix. Peritoneum: No ascites or free air. Bladder: Grossly unremarkable. Reproductive: No adnexal masses. Bones: No acute fracture. L1 kyphoplasty. Other: n/a IMPRESSION: No acute intra-abdominal or pelvic finding.
[2021-06-13 20:07] LABS: Blood Morphology Comment NOT SEEN (NOT SEEN); Platelet Estimate ADEQ; White Blood Cell Scan OK (OK)
--- NOTE | 2021-06-13 20:23 | EDPHYS ---
Physician Documentation [facility] Name: Alberto Botelol Age: 70 yrs Sex: Female : 1950 Arrival Date: 06/13/2021 Time: 17:37 Bed 23 Private MD: Alis Jamison H ED Physician Fredrick Nettles HPI: 06/13 17:49 This 70 yrs old Female presents to ER via Ambulatory with complaints of Epigastric Pain.ma2 17:49 The patient presents with abdominal pain. Onset: The symptoms/episode began/occurred ma2 gradually, 1 day(s) ago. Associated signs and symptoms: Pertinent negatives: blood in stools, constipation, dysuria, fever, shortness of breath, vaginal discharge, vomiting blood. Severity of pain: At its worst the pain was moderate in the emergency department the pain is unchanged. The patient has experienced similar episodes in the past. Patient is a frequent ER visitor for abdominal pain, she has 36 visits in the last 2 years, CT was done 2 days ago was unremarkable, she follow-up with GI, however she gets frequent flare up for gastritis, she takes Purvis at home.. Historical: - Allergies: 17:42 No Known Allergies; hb - Home Meds: 23:28 lisinopril 10 mg Oral tab 1 tab once daily [Active]; citalopram 20 mg tab 1 tab once sj1 daily [Active]; benztropine 0.5 mg oral tab 1 tab 2 times per day [Active]; risperadone 0.5 daily [Active]; Linzess 145 mcg Oral cap 1 cap once daily [Active]; Amitiza 24 mcg Oral cap 1 cap [Active]; alprazolam 2 mg Oral tab 1 tab nightly [Active]; ursodiol 500 mg Oral tab daily [Active]; Protonix 40 mg Oral TbEC 2 tabs once daily [Active]; Purvis 7.5-325 mg Oral tab 1 tab TID [Active]; Vitamin D Oral 1,000 unit daily [Active]; PreserVision Lutein Oral daily [Active]; Cipro 500 mg Oral tab 1 tab 2 times per day [Active]; metronidazole 500 mg Oral tab 1 tab 3 times per day [Active]; - Immunization history:: Client reports receiving the 2nd dose of the Covid vaccine, Flu vaccine is not up to date. - Social history:: Smoking status: Patient denies any tobacco usage or history of. - Family history:: not pertinent. ROS: 17:49 Constitutional: Negative for fever, chills, and weight loss. ma2 17:49 All other systems are negative. Exam: 17:49 Constitutional: This is a well developed, well nourished patient who is awake, alert, ma2 and in no acute distress. Eyes: Pupils equal round and reactive to light, extra-ocular motions intact. Lids and lashes normal. Conjunctiva and sclera are non-icteric and not injected. Cornea within normal limits. Periorbital areas with no swelling, redness, or edema. ENT: Nares patent. No nasal discharge, no septal abnormalities noted. Tympanic membranes are normal and external auditory canals are clear. Oropharynx with no redness, swelling, or masses, exudates, or evidence of obstruction, uvula midline. Mucous membranes moist. Neck: Trachea midline, no thyromegaly or masses palpated, and no cervical lymphadenopathy. Supple, full range of motion without nuchal rigidity, or vertebral point tenderness. No Meningismus. Chest/axilla: Normal chest wall appearance and motion. Nontender with no deformity. No lesions are appreciated. Cardiovascular: Regular rate and rhythm with a normal S1 and S2. No gallops, murmurs, or rubs. Normal PMI, no JVD. No pulse deficits. Respiratory: Lungs have equal breath sounds bilaterally, clear to auscultation and percussion. No rales, rhonchi or wheezes noted. No increased work of breathing, no retractions or nasal flaring. Abdomen/GI: Soft, non-tender, with normal bowel sounds. No distension or tympany. No guarding or rebound. No evidence of tenderness throughout. Back: No spinal tenderness. No costovertebral tenderness. Full range of motion. MS/ Extremity: Pulses equal, no cyanosis. Neurovascular intact. Full, normal range of motion. Neuro: Awake and alert, GCS 15, oriented to person, place, time, and situation. Cranial nerves II-XII grossly intact. Motor strength 5/5 in all extremities. Sensory grossly intact. Cerebellar exam normal. Normal gait. Vital Signs: 17:41 BP 145 / 82; Pulse 88; Resp 16; Temp 98.1; Pulse Ox 98% on R/A; Pain 10/10; hb 18:30 BP 150 / 71; Pulse 97; Resp 16; Pulse Ox 94% ; bp MDM: 17:46 Patient medically screened. ma2 17:49 Differential diagnosis: gastritis, gastroesophageal reflux disease, Irritable bowel ma2 syndrome, non-specific abd pain. 20:21 Data reviewed: vital signs, nurses notes, old medical records, lab test result(s), 7 amylase and lipase, CBC, electrolytes, radiologic studies, CT scan. Data interpreted:. Counseling: I had a detailed discussion with the patient and/or guardian regarding: the historical points, exam findings, and any diagnostic results supporting the discharge/admit diagnosis, the presence of at least one elevated blood pressure reading (>120/80) during this emergency department visit, lab results, radiology results, the need for further work-up and treatment in the hospital. Response to treatment: the patient's symptoms have mildly improved after treatment. 06/13 17:47 Order name: Basic Metabolic Panel; Complete Time: 19:58 ky2 06/13 17:47 Order name: CBC with Diff; Complete Time: 20:09 ky2 06/13 17:47 Order name: Hepatic Function; Complete Time: 19:58 ma2 06/13 17:47 Order name: Lipase; Complete Time: 19:58 ky2 06/13 20:07 Order name: CBC Smear Scan; Complete Time: 20:09 EDMS 06/13 20:56 Order name: COVID-19 : Document "Date of Symptom Onset" if Symptomatic. la1 06/13 21:01 Order name: Lipid Profile la1 06/13 21:01 Order name: ETOH Level la1 06/13 21:02 Order name: Procalcitonin la1 06/13 21:02 Order name: Troponin (emerg Dept Use Only) la1 06/13 22:08 Order name: Urine Dipstick-Ancillary EDMS 06/13 22:43 Order name: Urine Microscopic Only bb 06/13 23:21 Order name: Urine Microscopic Only EDMS 06/14 00:03 Order name: SARS-COV-2 RT PCR EDNV 06/13 17:47 Order name: IV Saline Lock; Complete Time: 18:20 ma2 06/13 17:47 Order name: Labs collected and sent; Complete Time: 18:20 ky2 06/13 18:41 Order name: CT Abd/Pelvis - IV Contrast Only; Complete Time: 19:58 ma2 06/13 19:59 Order name: Urine Dipstick-Ancillary (obtain specimen); Complete Time: 22:10 7 06/13 20:56 Order name: NPO: Ok for pills; Complete Time: 21:11 la1 Administered Medications: 18:20 Drug: NS 0.9% 1000 ml Route: IV; Rate: 1 bolus; Site: right forearm; bp 20:57 Follow up: IV Status: Completed infusion 5 18:20 Drug: Dilaudid (HYDROmorphone) 1 mg Route: IVP; Site: right forearm; bp 19:15 Follow up: Response: No adverse reaction sj1 18:20 Drug: Zofran (Ondansetron) 4 mg Route: IVP; Site: right forearm; bp 19:15 Follow up: Response: No adverse reaction sj1 20:15 Drug: Dilaudid (HYDROmorphone) 1 mg Route: IVP; Site: right forearm; sj1 20:57 Follow up: Response: Pain is unchanged, physician notified 5 21:04 CANCELLED (Other Intervention Used): NS 0.9% 1000 ml IV at 100 ml/hr continuous la1 21:19 Drug: ProTONIX (pantoprazole) 40 mg Route: IVP; Site: right antecubital; sj1 23:37 Follow up: Response: Pain is decreased sj1 21:19 Drug: D5-1/2 NS with KCl 20 mEq/L 1000 ml Route: IV; Rate: 100 ml/hr; Site: right sj1 antecubital; 21:35 Drug: Ativan (LORazepam) 2 mg Route: PO; sj1 23:38 Follow up: Response: No adverse reaction; Pain is decreased; RASS: Drowsy (-1) sj1 Disposition Summary: 06/13/21 20:23 Hospitalization Ordered Hospitalization Status: Inpatient Admission [facility] Location: Telemetry/MedSurg (Inpatient) [facility] Condition: Stable [facility] Problem: an acute exacerbation 7 Symptoms: have improved [facility] Bed/Room Type: Standard [facility] Provider: Davis Ko(06/13/21 21:03) laChristian Room Assignment: [facility](06/14/21 00:29) Diagnosis - Acute Pancreatitis, Intractable Pain [facility] Forms: - Medication Reconciliation Form 7 - SBAR form 7 Signatures: Dispatcher [employer] EDMS Estevan Al, TAXI PROPRIETOR-C TAXI PROPRIETOR-Cla1 Cristina Higuera, YOSVANY RN Viral Painter RN RN bp Diego Patterson MD MD ma2 Veronica Chappell Maurice, MD MD 7 Brittany Tucker RN RN sj1 Kerri Butts RN 5 Corrections: (The following items were deleted from the chart) 21: 20:23 Toñito Izquierdo [facility] la1 21:04 20:55 NS 0.9% 1000 ml IV at 100 ml/hr continuous ordered. la1 la06/14 00:29 06/13 20:23 mis ahuja
--- NOTE | 2021-06-13 20:23 | ER ---
Nurse's Notes [facility] Name: Alberto Botello Age: 70 yrs Sex: Female : 1950 Arrival Date: 06/13/2021 Time: 17:37 Bed 23 Private MD: Alis Jamison H Diagnosis: Acute Pancreatitis, Intractable Pain Presentation: 06/13 17:41 Chief complaint: Burning epigastric pain since 0900 today, unrelieved by OTC antacids. hb Coronavirus screen: At this time, the client does not indicate any symptoms associated with coronavirus-19. Ebola Screen: No symptoms or risks identified at this time. Risk Assessment: Do you want to hurt yourself or someone else? Patient reports no desire to harm self or others. Onset of symptoms was June 13, 2021. 17:41 Method Of Arrival: Ambulatory 17:41 Acuity: ART 3 hb Triage Assessment: 17:44 General: Appears in no apparent distress. uncomfortable, Behavior is calm, cooperative, bp appropriate for age. Pain: Complains of pain in epigastric area. EENT: No deficits noted. Neuro: No deficits noted. Cardiovascular: No deficits noted. Respiratory: No deficits noted. GI: Reports epigastric pain. : No signs and/or symptoms were reported regarding the genitourinary system. Derm: No deficits noted. Musculoskeletal: No deficits noted. Historical: - Allergies: 17:42 No Known Allergies; hb - Home Meds: 23:28 lisinopril 10 mg Oral tab 1 tab once daily [Active]; citalopram 20 mg tab 1 tab once sj1 daily [Active]; benztropine 0.5 mg oral tab 1 tab 2 times per day [Active]; risperadone 0.5 daily [Active]; Linzess 145 mcg Oral cap 1 cap once daily [Active]; Amitiza 24 mcg Oral cap 1 cap [Active]; alprazolam 2 mg Oral tab 1 tab nightly [Active]; ursodiol 500 mg Oral tab daily [Active]; Protonix 40 mg Oral TbEC 2 tabs once daily [Active]; [place] 7.5-325 mg Oral tab 1 tab TID [Active]; Vitamin D Oral 1,000 unit daily [Active]; PreserVision Lutein Oral daily [Active]; Cipro 500 mg Oral tab 1 tab 2 times per day [Active]; metronidazole 500 mg Oral tab 1 tab 3 times per day [Active]; - Immunization history:: Client reports receiving the 2nd dose of the Covid vaccine, Flu vaccine is not up to date. - Social history:: Smoking status: Patient denies any tobacco usage or history of. - Family history:: not pertinent. Screenin:47 Abuse screen: Denies threats or abuse. Denies injuries from another. Nutritional bp screening: No deficits noted. Tuberculosis screening: No symptoms or risk factors identified. Fall Risk None identified. Assessment: 17:45 General: SEE TRIAGE NOTE. bp 18:24 Reassessment: LETICIA (DAUGHTER) [phone]. bp 20:11 Reassessment: gave verbal order for 2 nd dose of 1 mg Dilaudid IVP. sj1 Vital Signs: 17:41 BP 145 / 82; Pulse 88; Resp 16; Temp 98.1; Pulse Ox 98% on R/A; Pain 10/10; hb 18:30 BP 150 / 71; Pulse 97; Resp 16; Pulse Ox 94% ; bp ED Course: 17:37 Patient arrived in ED. mr 17:37 Alis Jamison DO is Private Physician. mr 17:42 Triage completed. hb 17:42 Arm band placed on. hb 17:44 Viral Painter, RN is Primary Nurse. bp 17:46 Diego Patterson MD is Attending Physician. ma2 17:47 Patient has correct armband on for positive identification. Bed in low position. Call bp light in reach. Side rails up X2. 18:21 Inserted saline lock: 22 gauge in right forearm, using aseptic technique. Blood bp collected. 19:16 CT Abd/Pelvis - IV Contrast Only Sent. sj1 19:25 CT Abd/Pelvis - IV Contrast Only In Process Unspecified. EDMS 19:34 Attending Physician role handed off by Diego Patterson MD 7 19:34 Fredrick Nettles MD is Attending Physician. 7 20:21 Toñito Izquierdo DO is Hospitalizing Provider. 7 21:02 Davis Ko MD is Hospitalizing Provider. la1 21:10 COVID-19 : Document "Date of Symptom Onset" if Symptomatic. Sent. bc5 21:35 Troponin (emerg Dept Use Only) Sent. sj1 21:35 Procalcitonin Sent. sj1 21:35 ETOH Level Sent. sj1 21:35 Lipid Profile Sent. sj1 22:45 Urine Microscopic Only Sent. sj1 Administered Medications: 18:20 Drug: NS 0.9% 1000 ml Route: IV; Rate: 1 bolus; Site: right forearm; bp 20:57 Follow up: IV Status: Completed infusion 5 18:20 Drug: Dilaudid (HYDROmorphone) 1 mg Route: IVP; Site: right forearm; bp 19:15 Follow up: Response: No adverse reaction sj1 18:20 Drug: Zofran (Ondansetron) 4 mg Route: IVP; Site: right forearm; bp 19:15 Follow up: Response: No adverse reaction sj1 20:15 Drug: Dilaudid (HYDROmorphone) 1 mg Route: IVP; Site: right forearm; sj1 20:57 Follow up: Response: Pain is unchanged, physician notified 5 21:04 CANCELLED (Other Intervention Used): NS 0.9% 1000 ml IV at 100 ml/hr continuous la1 21:19 Drug: ProTONIX (pantoprazole) 40 mg Route: IVP; Site: right antecubital; sj1 23:37 Follow up: Response: Pain is decreased sj1 21:19 Drug: D5-1/2 NS with KCl 20 mEq/L 1000 ml Route: IV; Rate: 100 ml/hr; Site: right sj1 antecubital; 21:35 Drug: Ativan (LORazepam) 2 mg Route: PO; sj1 23:38 Follow up: Response: No adverse reaction; Pain is decreased; RASS: Drowsy (-1) sj1 Outcome: 20:23 Decision to Hospitalize by Provider. [facility] 06/14 01:39 Patient left the ED. 5 Signatures: Dispatcher [employer] SHANNEN Shirley CortésEstevan, WOODS OVERSEER-C WOODS OVERSEER-Cla1 Cristina Higuera, RN RN Viral Painter RN RN bp Diego Patterson MD MD dc2 Fredrick Nettles MD MD 7 Kerri Butts RN RN 5 Garrett, Sade, RN RN sj1
--- NOTE | 2021-06-13 21:16 | P.HP ---
Certification for Inpatient Patient admitted to: Inpatient With expected LOS: >2 Midnights Patient will require the following post-hospital care: None Practitioner: I am a practitioner with admitting privileges, knowledge of patient current condition, hospital course, and medical plan of care. Services: Services provided to patient in accordance with Admission requirements found in Title 42 Section 412.3 of the Code of Federal Regulations Patient History Date of Service: 06/13/21 Primary Care Provider: dr. hawthorne Reason for admission: Pancreatitis History of Present Illness: 70-year-old female with history of hypertension, anxiety, IBS, chronic back pain, intermittent issues with abdominal pain who has had MRCP/ERCP/en doscopy in the past few months presents emergency [place] for recurrent abdominal pain. Patient was seen here in the emergency department yesterday with mildly elevated lipase, patient was discharged home with instructions for clear liquid diet and follow-up, patient has not done well at home with worsening pain, dehydration and intolerance of food/liquids. Patient was again evaluated in the emergency room at small increase in lipase to 699 potassium 3.2 carbon oxide 18 which has decreased from 21. GFR 45 glucose 117 white blood cell count 13.1 hemoglobin [address] abdomen pelvis with contrast suggest no acute intra-abdominal or pelvic findings, pneumobilia, extrahepatic biliary ductal dilatation may be related to postcholecystectomy state/recent ERCP. Patient still significant pain after multiple doses of narcotic pain medication and appears very dry/dehydrated with mild lipase ED progress to admit for further evaluation and management of pancreatitis. Allergies No Known Allergies Allergy (Verified 12/26/15 07:13) Home Medications: Metformin HCl [Glucophage*] 425 mg PO BID 06/13/17 Morphine *Extended Release* [MS Contin*] 30 mg PO TIDP PRN 06/13/17 lisinopriL [Prinivil*] 10 mg PO ONCE 06/13/17 Eszopiclone [Lunesta*] 1 mg PO BEDTIME 05/09/18 Linaclotide [Linzess] 72 mcg PO PRN 05/09/18 Cefdinir [Omnicef] 300 mg PO BID #14 capsule 05/10/18 - Past Medical/Surgical History Diabetic: Yes -: chronic headache -: hepatitis c -: chronic pain -: pelvic & Lumbar spine compression fracture 01/2015 -: neuropathy -: pancreatitis -: Hypertension -: Anxiety -: hysterectomy, cholecystectomy -: bile duct stent -: kyphoplasty -: ERCP Psychosocial/ Personal History: Patient lives at home with her family - Family History Mother Notes: no history Father -: Heart disease, Lung disease, GI disease, Cancer - Social History Smoking Status: Never smoker Alcohol use: No CD- Drugs: No Caffeine use: Yes Place of Residence: Home Review of Systems 10-point ROS is otherwise unremarkable Gastrointestinal: Nausea, Abdominal Pain Physical Examination - Physical Exam General: Alert, In no apparent distress, Oriented x3 HEENT: Atraumatic, PERRLA, Mucous membr. moist/pink, EOMI, Sclerae nonicteric Neck: Supple, 2+ carotid pulse no bruit, No LAD, Without JVD or thyroid abnormality Respiratory: Clear to auscultation bilaterally, Normal air movement Cardiovascular: Regular rate/rhythm, Normal S1 S2 Gastrointestinal: Normal bowel sounds, No rebound, No guarding, Tenderness (Mild epigastric/mid abdominal tenderness ) Musculoskeletal: No tenderness Integumentary: No rashes Neurological: Normal speech, Normal strength at 5/5 x4 extr, Normal tone, Normal affect Lymphatics: No axilla or inguinal lymphadenopathy - Studies Laboratory Data (last 24 hrs) 06/13/21 18:44: WBC 13.10 H, Hgb 9.0 L, Hct 27.5 L D, Plt Count 348 06/13/21 18:44: Sodium 141, Potassium 3.2 L, BUN 14, Creatinine 1.19, Glucose 117 H, Total Bilirubin 0.3, AST 19, ALT 22, Alkaline Phosphatase 49, Lipase 699 H Assessment and Plan - Plan Assessment: Intractable abdominal pain, dehydration secondary to pancreatitis GERD Hypertension Anxiety Chronic pain Plan: Intractable abdominal pain, dehydration secondary to pancreatitis: N.p.o., IV fluids, as needed pain medications/antiemetics. Protonix. Will consult GI as patient has had persistent epigastric pain, has had ERCP/MRCP/endoscopy in the past few months per daughter. ERCP was negative per previous ER chart. Lipid panel/EtOH level ordered and pending. GERD: Protonix, n.p.o. at this time Hypertension: Patient n.p.o. at this time will provide as needed antihypertensive agents Anxiety: As needed anxiety medications, restart home medications when patient is tolerating p.o. Chronic pain: We will provide IV medications at this time given n.p.o. status and significant, pain. Restart home medications when appropriate DVT PPX: Lovenox Code status: Full Discharge Plan: Home Plan to discharge in: 48 Hours - Advance Directives Does patient have a Living Will: No Does patient have a Durable POA for Healthcare: No - Code Status/Comfort Care Code Status Assessed: Yes (Full code) Critical Care: No Time Spent Managing Pts Care (In Minutes): 55
[2021-06-13] MEDS: D5.45NS W/KCL 20MEQ 1,000 ML IV SCH (21:19)
[2021-06-13] MEDS ORDERED: PANTOPRAZOLE 40 MG INJ ONE (21:41)
[2021-06-13] MEDS ORDERED: D5.45NS W/KCL 20MEQ 1,000 ML IV ONE (21:42)
[2021-06-13] MEDS ORDERED: LORAZEPAM 1 MG TABLET ONE (21:47)
[2021-06-13 22:08] LABS: Urine Blood Trace-intact (Negative); Urine Glucose Negative (Negative); Urine Protein Negative (Negative)
[2021-06-13] MEDS ORDERED: SODIUM CHLORIDE 0.9% 10ML INJ IV PRN (22:47)
[2021-06-13] MEDS ORDERED: PANTOPRAZOLE 40 MG INJ IVP ONE (22:47)
[2021-06-13] MEDS ORDERED: ONDANSETRON 4 MG/2 ML VIAL IV PRN (22:47)
[2021-06-13 23:17] VITALS: BMI 24.4
[2021-06-13 23:21] LABS: Urine Bacteria >50 /HPF (<20); Urine RBC <5 /HPF (NONE SEEN)
[2021-06-14] MEDS: MORPHINE 2 MG/ML SYR IV PRN ×3 (02:16→12:14)
[2021-06-14] MEDS ORDERED: MORPHINE 2 MG/ML SYR ONE (02:30)
[2021-06-14] MEDS ORDERED: MORPHINE 2 MG/ML SYR IM ONE (03:33)
[2021-06-14 04:58] LABS: Absolute Lymphocytes (CBC) 1.6 K/uL (0.7-4.9); Basophils % 0.2 % (0-1.3); Hematocrit 31.5 % (36.0-45.0); Lymphocytes % 15.1 % (15.3-44.8); MPV 7.1 fL (7.6-11.3); RBC Red Blood Cell Count 3.47 M/uL (3.86-4.86)
[2021-06-14 05:20] LABS: Albumin 3.1 g/dL (3.4-5.0); Bilirubin Total 0.2 mg/dL (0.2-1.0); Ferritin 217.5 ng/mL (8-388); Magnesium 2.2 mg/dL (1.8-2.4); Potassium 3.1 mmol/L (3.5-5.1)
[2021-06-14] MEDS: CEFTRIAXONE 1 GM/NS 50 ML 1 GM/50 ML BAG IV SCH ×2 (06:11→19:58)
--- NOTE | 2021-06-14 06:22 | P.PN ---
Date of Service: 06/14/21 Subjective: States she feels about the same since admission, pain medication helps temporarily Feels abdomen is a little bit distended/bloated Thinks one of the medications is giving her a little dizziness No vomiting, no diarrhea Reports history of constipation, last bowel movement yesterday, passing flatus this morning ROS: 10 point review of systems otherwise negative Physical Exam General: Alert, in mild distress, appears uncomfortable HEENT: Normal conjunctiva, sclera anicteric Respiratory: Clear to auscultation bilaterally, Normal air movement Cardiovascular: Regular rate/rhythm, Normal S1 S2 Gastrointestinal: Soft, minimally distended, epigastric and left upper quadrant tenderness, no rebound Musculoskeletal: No tenderness Integumentary: No rashes Problem List Intractable abdominal pain, dehydration secondary to acute on chronic pancreatitis GERD Hypertension Anxiety Chronic pain Chronic constipation Continue n.p.o., increase and change IV fluids to 150 mL/hour LR. Change morphine to Dilaudid for better pain control Patient with MRCP concerning for gallstones approximately 2 months ago, reportedly had negative ERCP after that We will consult GI if patient does not have any improvement by tomorrow Pneumobilia noted on CT, suspect from recent ERCP Continue Protonix, antihypertensives as needed Restart home medication when tolerating p.o. VTE: lovenox Code: full Dispo: Anticipate DC home in 2-3 days
[2021-06-14] MEDS ORDERED: CEFTRIAXONE 1000 MG/VIAL ONE (06:24)
[2021-06-14] MEDS ORDERED: NA CHLORIDE 0.9% 50 ML ONE (06:47)
[2021-06-14] MEDS: ENOXAPARIN 40 MG/0.4 ML SQ SCH (08:24)
[2021-06-14] MEDS: D5.45NS W/KCL 20MEQ 1,000 ML IV SCH (08:32)
[2021-06-14] MEDS: KCL 20 MEQ/100 mL IVPB 20 MEQ/100 ML BAG IV SCH ×2 (09:34→14:12)
[2021-06-14] MEDS: MORPHINE 2 MG/ML SYR IV ONE ×2 (09:53→11:25)
[2021-06-14] MEDS ORDERED: Ringers Lactate 1,000 ML IV SCH (12:00)
[2021-06-14] MEDS ORDERED: HYDROMORPHONE HCL 1 MG/ML INJ IV PRN (13:07)
[2021-06-14] MEDS ORDERED: FENTANYL CITR 100 MCG/2 ML IV ONE (15:59)
[2021-06-14] MEDS: Ringers Lactate 1,000 ML IV SCH ×2 (16:37→19:59)
[2021-06-14] MEDS: HYDROMORPHONE HCL 1 MG/ML INJ IV PRN ×2 (18:12→21:09)
[2021-06-14] MEDS ORDERED: KCL 20 MEQ/100 mL IVPB 20 MEQ/100 ML BAG IV SCH (21:00)
[2021-06-14] MEDS: ALPRAZOLAM 1 MG TABLET PO PRN (22:07)
[2021-06-15] MEDS: Ringers Lactate 1,000 ML IV SCH ×3 (02:56→17:58)
[2021-06-15 05:45] LABS: Absolute Lymphocytes (CBC) 1.3 K/uL (0.7-4.9); Basophils % 0.6 % (0-1.3); Hematocrit 29.1 % (36.0-45.0); Lymphocytes % 16.9 % (15.3-44.8); MPV 7.2 fL (7.6-11.3); RBC Red Blood Cell Count 3.17 M/uL (3.86-4.86)
--- NOTE | 2021-06-15 06:12 | P.PN ---
Date of Service: 06/15/21 Subjective: Fluids and pain medication increased yesterday. Patient feeling 50% better today, still requiring IV pain medication, denies nausea/vomiting Feels hungry/thirsty this morning. No change in the location of her pain + BM this morning ROS: 10 point review of systems otherwise negative Physical Exam General: Alert, NAD HEENT: Normal conjunctiva, sclera anicteric Respiratory: Clear to auscultation bilaterally, Normal air movement Cardiovascular: Regular rate/rhythm, Normal S1 S2 Gastrointestinal: Soft, minimally distended, epigastric and left upper quadrant tenderness, no rebound Musculoskeletal: No tenderness Integumentary: No rashes Problem List Intractable abdominal pain, dehydration secondary to acute on chronic pancreatitis GERD Hypertension Anxiety Chronic pain Chronic constipation Decrease IV fluids, can have ice chips/sips of water this morning, clear liquid diet later today if tolerating well Restart patient's home [place] [employer], SHORTHAND TE[employer]ER reviewed. Decrease dose and frequency of Dilaudidto be used for breakthrough pain Patient with MRCP concerning for gallstones approximately 2 months ago, reportedly had negative ERCP after that We will consult GI if patient does not have any improvement Pneumobilia noted on CT, suspect from recent ERCP Continue Protonix, antihypertensives as needed Restart home medication when tolerating p.o. and is hypertensive VTE: lovenox Code: full Dispo: Anticipate DC home in 1-2 days Time Spent Managing Pts Care (In Minutes): 35
[2021-06-15 06:13] LABS: Albumin 2.6 g/dL (3.4-5.0); Bilirubin Total 0.2 mg/dL (0.2-1.0); Magnesium 2.1 mg/dL (1.8-2.4); Potassium 3.5 mmol/L (3.5-5.1); Protein, Total 6.2 g/dL (6.4-8.2)
[2021-06-15] MEDS ORDERED: KCL 20 MEQ/100 mL IVPB 20 MEQ/100 ML BAG IV SCH (07:00)
[2021-06-15] MEDS: ENOXAPARIN 40 MG/0.4 ML SQ SCH (07:59)
[2021-06-15] MEDS: HYDROMORPHONE HCL 1 MG/ML INJ IV PRN ×4 (08:00→19:30)
[2021-06-15] MEDS: CEFTRIAXONE 1 GM/NS 50 ML 1 GM/50 ML BAG IV SCH (20:01)
[2021-06-15] MEDS: RISPERIDONE 0.25 MG TABLET PO SCH (20:03)
[2021-06-15] MEDS: BENZTROPINE 1 MG TAB PO SCH (20:04)
[2021-06-15] MEDS: ALPRAZOLAM 1 MG TABLET PO PRN (21:07)
[2021-06-16] MEDS: HYDROMORPHONE HCL 1 MG/ML INJ IV PRN ×2 (04:09→06:57)
[2021-06-16 06:12] LABS: Absolute Lymphocytes (CBC) 1.2 K/uL (0.7-4.9); Basophils % 0.3 % (0-1.3); Hematocrit 30.6 % (36.0-45.0); Lymphocytes % 13.8 % (15.3-44.8); RBC Red Blood Cell Count 3.39 M/uL (3.86-4.86)
[2021-06-16] MEDS: Ringers Lactate 1,000 ML IV SCH ×2 (06:13→20:30)
[2021-06-16 06:24] LABS: Albumin 2.8 g/dL (3.4-5.0); Bilirubin Total 0.3 mg/dL (0.2-1.0); Magnesium 2.1 mg/dL (1.8-2.4); Potassium 3.2 mmol/L (3.5-5.1); Protein, Total 6.5 g/dL (6.4-8.2)
[2021-06-16] MEDS ORDERED: POTASSIUM 25 MEQ EFFERV TAB PO ONE (08:00)
[2021-06-16] MEDS: CITALOPRAM 10 MG TABLET PO SCH (08:42)
[2021-06-16] MEDS: BENZTROPINE 1 MG TAB PO SCH ×2 (08:42→20:33)
[2021-06-16] MEDS: ENOXAPARIN 40 MG/0.4 ML SQ SCH (08:44)
[2021-06-16] MEDS ORDERED: Meropenem 500 MG/100 ML BAG IV SCH (09:00)
[2021-06-16] MEDS ORDERED: RISPERIDONE 0.25 MG TABLET PO SCH (09:00)
[2021-06-16] MEDS ORDERED: RISPERIDONE 0.5 MG PO SCH (09:00)
[2021-06-16] MEDS: HYDROCODONE/APAP 7.5/325 MG TAB PO PRN (10:05)
[2021-06-16] MEDS: Meropenem 1 GM/100 ML BAG IV SCH ×2 (10:48→20:34)
[2021-06-16] MEDS: HYDROMORPHONE HCL 0.5 MG/0.5 ML INJ IV PRN ×2 (13:39→16:49)
--- NOTE | 2021-06-16 14:55 | P.PN ---
Subjective Date of Service: 06/16/21 Primary Care Provider: dr. hawthorne Chief Complaint: Pancreatitis Patient reports abdominal pain. She is on clear liquid diet. Lipase level trended up today. Physical Examination - Vital Signs Temperature: 98.8 F Blood Pressure: 159/80 Pulse: 74 Respirations: 18 Pulse Ox (%): 98 - Physical Exam General: Alert, In no apparent distress HEENT: Mucous membr. moist/pink Neck: JVD not distended Respiratory: Clear to auscultation bilaterally, Normal air movement Cardiovascular: No edema, Regular rate/rhythm, Normal S1 S2 Gastrointestinal: Normal bowel sounds, Non-distended, Tenderness (Diffuse) Musculoskeletal: No swelling, No tenderness Integumentary: No rashes, No erythema Neurological: Normal strength at 5/5 x4 extr Assessment And Plan - Plan Diagnosis Intractable abdominal pain, dehydration secondary to acute on chronic pancreatitis GERD Hypertension Anxiety Chronic pain Chronic constipation. Plan: Continue supportive measures. Bowel rest with clear liquid diet. Monitor serial lipase. Pain management as needed. Status post recent ERCP. Pneumobilia from recent ERCP. Repeat CT abdomen due to elevated lipase and uncontrolled abdominal pain. Continue other home medications.
--- NOTE | 2021-06-16 15:52 | RAD REPORT ---
EXAM DESCRIPTION: CT - Abdomen Pelvis W Contrast - 06/16/2021 3:39 pm CLINICAL HISTORY: Follow up acute on chronic pancreatitis, abdominal pain COMPARISON: CT study June 13 TECHNIQUE: Biphasic, helical CT imaging of the abdomen and pelvis was performed following 100 ml non -ionic IV contrast. No oral contrast administered All CT scans are performed using dose optimization technique as appropriate and may include automated exposure control or mA/KV adjustment according to patient size. FINDINGS: No suspicious findings in the lung bases. The liver and spleen show no suspicious or new finding. Cholecystectomy clips are present with no gamal iary tree dilatation. No solid or cystic mass of the pancreatic parenchyma. No peripancreatic inflammatory stranding. No ne w pancreatic or peripancreatic process identified. Symmetric renal function is seen with no hydronephrosis or suspicious renal mass. No pyelonephritis o r acute parenchymal process. No bladder abnormalities. No adrenal abnormalities. Uterus is absent. Ov claudia are atrophic. No gastric dilatation or gastric wall thickening. Stomach is decompressed. No acute duodenal finding. The remainder of the small bowel and colon show no acute findings. No appendicitis findings. No annita e air, free fluid or inflammatory stranding. No hernia, mass or bulky lymphadenopathy. No suspicious bony findings. No acute vascular finding. Air in the subcutaneous fatty tissues of the abdomen presumed to be from m edication injection. IMPRESSION: No acute pancreatitis findings. No calcification, pseudocyst or other finding of chronic pancreatitis. No new or progressive finding since the June 13 study.
[2021-06-16] MEDS ORDERED: HYDROMORPHONE HCL 1 MG/ML INJ IV ONE (19:48)
[2021-06-16] MEDS: RISPERIDONE 0.25 MG TABLET PO SCH (20:34)
[2021-06-17] MEDS: HYDROMORPHONE HCL 0.5 MG/0.5 ML INJ IV PRN ×6 (01:44→21:06)
[2021-06-17 06:52] LABS: Albumin 2.9 g/dL (3.4-5.0); Bilirubin Total 0.3 mg/dL (0.2-1.0); Protein, Total 6.7 g/dL (6.4-8.2)
[2021-06-17 07:06] LABS: Magnesium 2.3 mg/dL (1.8-2.4); Potassium 3.8 mmol/L (3.5-5.1)
[2021-06-17] MEDS: Ringers Lactate 1,000 ML IV SCH ×2 (07:13→21:09)
[2021-06-17 07:21] LABS: Absolute Lymphocytes (CBC) 1.4 K/uL (0.7-4.9); Basophils % 0.4 % (0-1.3); Hematocrit 32.5 % (36.0-45.0); Lymphocytes % 21.5 % (15.3-44.8); MPV 7.2 fL (7.6-11.3); RBC Red Blood Cell Count 3.61 M/uL (3.86-4.86)
[2021-06-17] MEDS ORDERED: POTASSIUM CL SA 10 MEQ TAB PO ONE ×2 (07:34→09:00)
[2021-06-17] MEDS: Meropenem 1 GM/100 ML BAG IV SCH ×2 (10:00→20:01)
[2021-06-17] MEDS: CITALOPRAM 10 MG TABLET PO SCH (10:01)
[2021-06-17] MEDS: ENOXAPARIN 40 MG/0.4 ML SQ SCH (10:01)
[2021-06-17] MEDS: BENZTROPINE 1 MG TAB PO SCH ×3 (10:02→21:00)
[2021-06-17] MEDS: HYDROCODONE/APAP 7.5/325 MG TAB PO PRN (11:50)
--- NOTE | 2021-06-17 17:14 | P.PN ---
Subjective Date of Service: 06/17/21 Primary Care Provider: dr. hawthorne Chief Complaint: Pancreatitis Patient complaining of abdominal pain and getting pain medications around the clock. She is on clear liquid diet. Lipase trended down today. Physical Examination - Vital Signs Temperature: 98 F Blood Pressure: 143/76 Pulse: 84 Respirations: 20 Pulse Ox (%): 96 - Physical Exam General: In no apparent distress, Confused HEENT: Mucous membr. moist/pink Neck: JVD not distended Respiratory: Clear to auscultation bilaterally, Normal air movement Cardiovascular: No edema, Regular rate/rhythm, Normal S1 S2 Gastrointestinal: Normal bowel sounds, Non-distended, Tenderness (Epigastrium) Musculoskeletal: No swelling Integumentary: No rashes Neurological: Normal strength at 5/5 x4 extr Assessment And Plan - Plan Diagnosis Intractable abdominal pain, dehydration secondary to acute on chronic pancreatitis GERD Hypertension Anxiety Chronic pain Chronic constipation. Plan: Continue supportive measures. Bowel rest with clear liquid diet. Lipase level is trending down. Patient with chronic abdominal pain from chronic pancreatitis and chronic back pain. Pain management as needed. Status post recent ERCP. Pneumobilia from recent ERCP. Repeat CT abdomen: Unremarkable, no streaking, no acute pancreatitis Continue other home medications. Possible discharge in a.m.
[2021-06-17] MEDS ORDERED: HYDRALAZINE HCL 20 MG/ML VIAL IV PRN (19:38)
[2021-06-17] MEDS: ALPRAZOLAM 1 MG TABLET PO PRN (19:51)
[2021-06-17] MEDS: RISPERIDONE 0.25 MG TABLET PO SCH (20:02)
[2021-06-17 21:49] VITALS: O2SAT 98
[2021-06-18] MEDS: HYDROCODONE/APAP 7.5/325 MG TAB PO PRN ×2 (04:29→11:59)
[2021-06-18 06:44] LABS: Potassium 3.9 mmol/L (3.5-5.1)
[2021-06-18] MEDS ORDERED: POTASSIUM CL SA 10 MEQ TAB PO ONE (09:00)
[2021-06-18] MEDS: BENZTROPINE 1 MG TAB PO SCH (09:20)
[2021-06-18] MEDS: ENOXAPARIN 40 MG/0.4 ML SQ SCH (09:21)
[2021-06-18] MEDS: CITALOPRAM 10 MG TABLET PO SCH (09:21)
[2021-06-18] MEDS: Meropenem 1 GM/100 ML BAG IV SCH (09:21)
[2021-06-18] MEDS: Ringers Lactate 1,000 ML IV SCH (11:23)
--- NOTE | 2021-06-18 12:51 | P.DS ---
Admission Date: 06/13/21 Discharge Date: 06/18/21 Primary Care Provider: dr. jamison Disposition: ROUTINE DISCHARGE Discharge Condition: FAIR Reason for Admission: Pancreatitis Brief History of Present Illness: 70-year-old female with history of hypertension, anxiety, IBS, chronic back pain, intermittent abdominal pain who had MRCP/ERCP/endoscopy in the past few months presented emergency department for recurrent abdominal pain. Patient was seen here in the emergency department the day before with mildly elevated lipase, patient was discharged home with instructions for clear liquid diet and follow-up. Her abdominal pain got worse and therefore presented to the ED again. Her lipase had increased to 699.. GFR 45 glucose 117 white blood cell count 13.1 hemoglobin [address] abdomen pelvis with contrast suggest no acute intra-abdominal or pelvic findings. It reported pneumobilia, extrahepatic biliary ductal dilatation may be related to postcholecystectomy state/recent ERCP. Patient still significant pain after multiple doses of narcotic pain medication and appears dehydrated. Patient admitted for further management Hospital Course: Diagnosis Intractable abdominal pain, dehydration secondary to acute on chronic pancreatitis GERD Hypertension Anxiety Chronic pain Chronic constipation. Patient admitted to the medical floor and treated with supportive measures including IV hydration and pain management. Serial lipase was monitored. Lipase level trended down and then decreased again. Decreasing lipase level was associated with improvement in her symptoms. Repeat CT abdomen and pelvis did not show any evidence of acute pancreatitis. Diet advanced slowly to full liquid diet which she tolerated. Her urine culture grew ESBL E. coli which was treated with meropenem as an inpatient. ESBL E. coli is sensitive to Macrobid. Patient is discharged with 7 day course of Macrobid to complete treatment. She has clinically improved. She has chronic back pain and abdominal pain which is managed with long-acting opioid and [place]. She is deemed stable for discharge. 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 Vital Signs/Physical Exam: Temp Pulse Resp BP Pulse Ox 98.1 F 85 16 116/60 98 06/18/21 12:00 06/18/21 12:00 06/18/21 12:00 06/18/21 12:00 06/18/21 12:00 General: Alert, In no apparent distress HEENT: Mucous membr. moist/pink Neck: JVD not distended Respiratory: Clear to auscultation bilaterally, Normal air movement Cardiovascular: No edema, Regular rate/rhythm, Normal S1 S2 Gastrointestinal: Normal bowel sounds, Soft and benign, Non-distended, No tenderness Musculoskeletal: No swelling Integumentary: No rashes Neurological: Normal strength at 5/5 x4 extr Laboratory Data at Discharge: WBC 6.60 K/uL (4.3-10.9) D 06/17/21 07:00 Hgb 11.1 g/dL (12.0-15.0) L 06/17/21 07:00 Hct 32.5 % (36.0-45.0) L 06/17/21 07:00 Plt Count 313 K/uL (152-406) 06/17/21 07:00 Sodium 142 mmol/L (136-145) 06/18/21 06:09 Potassium 3.9 mmol/L (3.5-5.1) 06/18/21 06:09 BUN 5 mg/dL (7-18) L 06/18/21 06:09 Creatinine 0.91 mg/dL (0.55-1.3) 06/18/21 06:09 Glucose 95 mg/dL (74-106) 06/18/21 06:09 Magnesium 2.3 mg/dL (1.8-2.4) 06/17/21 06:06 Total Bilirubin 0.3 mg/dL (0.2-1.0) 06/17/21 06:06 AST 21 U/L (15-37) 06/17/21 06:06 ALT 19 U/L (12-78) 06/17/21 06:06 Alkaline Phosphatase 40 U/L (45-117) L 06/17/21 06:06 Triglycerides Cancelled 06/13/21 21:32 Cholesterol Cancelled 06/13/21 21:32 HDL Cholesterol Cancelled 06/13/21 21:32 Cholesterol/HDL Ratio Cancelled 06/13/21 21:32 Lipase 697 U/L (73-393) H 06/18/21 06:09 Home Medications: Morphine *Extended Release* [MS Contin*] 30 mg PO TIDP PRN 06/13/17 lisinopriL [Prinivil*] 10 mg PO ONCE 06/13/17 Linaclotide [Linzess] 145 mcg PO PRN 05/09/18 Alprazolam 2 mg PO BEDTIME 06/14/21 Cholecalciferol (Vitamin D3) [Vitamin D3] 1,000 unit PO DAILY 06/14/21 Citalopram [Celexa*] 20 mg PO DAILY 06/14/21 Hydrocodone Bit/Acetaminophen [Hydrocodon-Acetaminoph 7.5-325] 1 each PO TID 06/14/21 Lubiprostone [Amitiza] 24 mcg PO DAILY 06/14/21 Pantoprazole [Protonix Tab*] 40 mg PO DAILY 06/14/21 risperiDONE [Risperidone] 0.5 mg PO DAILY 06/14/21 ursodioL [Ursodiol] 500 mg PO DAILY 06/14/21 Benztropine Mesylate [Cogentin] 0.5 mg PO BID 06/15/21 Meclizine HCl [Motion Relief] 25 mg PO PRN PRN 06/17/21 Nitrofurantoin Monohyd/M-Cryst [Macrobid 100 mg Capsule] 100 mg PO BID #14 capsule 06/18/21 New Medications: Nitrofurantoin Monohyd/M-Cryst [Macrobid 100 mg Capsule] 100 mg PO BID #14 capsule Diet: AHA (Progressed from full liquid diet to GI soft as tolerated.) Activity: Ad gee Followup: Alis Jamison DO, DO [Primary Care Provider] - 1 Week Time spent managing pt's care (in minutes): 40
[2021-06-18 16:37] VITALS: BP 173/75; TEMP 98.2
== END 2021-06-18 18:07 | disposition home or self-care (01) | DRG 439 ==
LOC: ER 17:35 → ERHOLD 21:05 → 2ND 06-14 01:07
PROVIDERS: ADMIT Hospitalist; ATTEND Hospitalist
DX: K85.90 Acute pancreatitis without necrosis or infection, unspecified (principal); Z16.12 Extended spectrum beta lactamase (ESBL) resistance; N30.00 Acute cystitis without hematuria; K21.9 Gastro-esophageal reflux disease without esophagitis; I10 Essential (primary) hypertension; F41.9 Anxiety disorder, unspecified; G89.29 Other chronic pain; K59.09 Other constipation; B96.20 Unspecified Escherichia coli [E. coli] as the cause of diseases classified elsewhere; Z20.822 Contact with and (suspected) exposure to COVID-19
CPT/HCPCS: 36415; 74176; 74177; 80048; 80053; 80076; 81003; 81015; 82728; 83540; 83690; 83735; 84132; 84466; 85025; 87077; 87086; 87088; 87186; 96372; 99283; 99284; C9113; J0360; J0696; J1170; J1650; J2185; J2270; J2405; J3010; J3480; J7030; J7120; Q9967; U0003

== ENCOUNTER 2021-06-25 00:39 | Emergency (ER) | payer OTHER ==
[2021-06-25] MEDS ORDERED: MAGNES/ALUMIN/SIMET 30ML UCUP ONE (01:53)
[2021-06-25] MEDS ORDERED: PANTOPRAZOLE 40 MG INJ ONE (01:53)
[2021-06-25] MEDS ORDERED: LIDOCAINE VISCOUS 2% SOLN 15 ML UDC ONE (01:54)
[2021-06-25] MEDS ORDERED: ONDANSETRON 4 MG/2 ML VIAL ONE (01:54)
[2021-06-25] MEDS ORDERED: MORPHINE 4 MG/ML SYR ONE (01:54)
[2021-06-25 01:56] LABS: Absolute Lymphocytes (CBC) 0.9 K/uL (0.7-4.9); Basophils % 0.2 % (0-1.3); Hematocrit 30.8 % (36.0-45.0); Lymphocytes % 12.4 % (15.3-44.8); RBC Red Blood Cell Count 3.34 M/uL (3.86-4.86)
[2021-06-25] MEDS ORDERED: HYDROMORPHONE HCL 1 MG/ML INJ ONE ×2 (02:01→04:13)
[2021-06-25 02:05] LABS: Albumin 3.4 g/dL (3.4-5.0); Bilirubin Direct 0.1 mg/dL (0-0.2); Bilirubin Total 0.2 mg/dL (0.2-1.0); Potassium 3.9 mmol/L (3.5-5.1); Protein, Total 7.4 g/dL (6.4-8.2)
--- NOTE | 2021-06-25 03:32 | EDPHYS ---
Physician Documentation [facility] Name: Alberto Botello Age: 70 yrs Sex: Female : 1950 Arrival Date: 06/25/2021 Time: 00:42 Bed 16 Private MD: LEOLA Physician Xavi Ko HPI: 06/25 01:33 This 70 yrs old Female presents to ER via Wheelchair with complaints of Abd Pain rn > 50 y/o. 01:33 The patient presents with abdominal pain in the epigastric area, in the right upper rn quadrant, right lower quadrant. Onset: The symptoms/episode began/occurred at an unknown time. The symptoms do not radiate. Associated signs and symptoms: Pertinent negatives: anorexia, blood in stools, fever, hematuria, shortness of breath, vomiting. The symptoms are described as crampy, sharp. Modifying factors: The symptoms are alleviated by nothing, the symptoms are aggravated by food, touching the area. Severity of pain: At its worst the pain was moderate in the emergency department the pain is unchanged. The patient has experienced similar episodes in the past, chronically. The patient has been recently seen by a physician:. Patient and daughter report increase in abdominal pain recently, has chronic upper abdominal pain. Recently admitted for chronic pancreatitis and intractable pain. Sees Dr. Larson for GI. Denies any fever/vomiting/blood in the stool. Patient states pain identical to her chronic pain and other than requiring more pain medication tonight everything else is at baseline for her. States morphine does not help and needs Dilaudid. Chronically takes hydrocodone at home. Daughter considering taking her out of state for marijuana since nothing helping her here.. Historical: - Allergies: 00:51 No Known Allergies; df1 - Home Meds: 01:03 alprazolam 2 mg Oral tab 1 tab nightly [Active]; benztropine 0.5 mg Oral tab 1 tab 2 df1 times per day [Active]; Vitamin D Oral 1000 unit daily [Active]; citalopram 20 mg tab 1 tab once daily [Active]; [place] 7.5-325 mg Oral tab 1 tab TID [Active]; Linzess 145 mcg Oral cap 1 cap once daily [Active]; Amitiza 24 mcg Oral cap 1 cap [Active]; meclizine 25 mg Oral cap as needed [Active]; Protonix 40 mg Oral TbEC 1 tab once daily [Active]; lisinopril 10 mg Oral tab 1 tab once daily [Active]; risperadone 0.5 daily [Active]; ursodiol 500 mg Oral tab daily [Active]; - PMHx: 00:51 Anxiety; Chronic pain; Diabetes - NIDDM; Hepatitis; Hypertension; Osteoporosis; df1 Pancreatitis; - PSHx: 00:51 Cholecystectomy; df1 - Immunization history:: Adult Immunizations up to date, Client reports receiving the 2nd dose of the Covid vaccine. - Social history:: Smoking status: Patient denies any tobacco usage or history of. - Family history:: not pertinent. - Hospitalizations: : The patient was recently seen at [facility]. ROS: 01:33 Constitutional: Negative for fever, chills, and weight loss, Eyes: Negative for injury, rn pain, redness, and discharge, ENT: Negative for injury, pain, and discharge, Neck: Negative for injury, pain, and swelling, Cardiovascular: Negative for chest pain, palpitations, and edema, Respiratory: Negative for shortness of breath, cough, wheezing, and pleuritic chest pain, Abdomen/GI: Negative for nausea, vomiting, diarrhea, and constipation, Back: Negative for injury and pain, : Negative for injury, bleeding, discharge, and swelling, MS/Extremity: Negative for injury and deformity, Skin: Negative for injury, rash, and discoloration, Neuro: Negative for headache, weakness, numbness, tingling, and seizure. Exam: 01:33 Constitutional: This is a well developed, well nourished patient who is awake, alert, rn appears in pain, pointing to her the right side of her abdomen Head/Face: Normocephalic, atraumatic. Eyes: Periorbital areas with no swelling, redness, or edema. Cardiovascular: Regular rate and rhythm. No pulse deficits. Respiratory: No increased work of breathing, no retractions or nasal flaring. Abdomen/GI: Soft, tender epigastrium and right upper quadrant and to the right of umbilicus. No masses. No peritoneal signs. Skin: Warm, dry MS/ Extremity: Pulses equal, no cyanosis. Neuro: Awake and alert, GCS 15 Vital Signs: 00:48 BP 158 / 89; Pulse 80; Resp 18; Temp 99.2(O); Pulse Ox 99% on R/A; Weight 54.43 kg; df1 Height 5 ft. 0 in. (152.40 cm); Pain 10/10; 02:48 BP 147 / 82; Pulse 78; Resp 17; Temp 98.8; Pulse Ox 98% on R/A; Pain 6/10; mr2 00:48 Body Mass Index 23.44 (54.43 kg, 152.40 cm) df1 MDM: 01:04 Patient medically screened. rn 03:29 Differential diagnosis: gastritis, gastroesophageal reflux disease, non-specific abd rn pain, pancreatitis, Peptic Ulcer Disease, Ureterolithiasis. Data reviewed: vital signs, nurses notes, lab test result(s), radiologic studies, CT scan, and as a result, I will discharge patient. Counseling: I had a detailed discussion with the patient and/or guardian regarding: the historical points, exam findings, and any diagnostic results supporting the discharge/admit diagnosis, lab results, radiology results, the need for outpatient follow up, to return to the emergency department if symptoms worsen or persist or if there are any questions or concerns that arise at home. Response to treatment: the patient's symptoms have mildly improved after treatment, and as a result, I will discharge patient. Special discussion: Based on the patient's Hx, exam, and Dx evaluation, there is no indication for emergent surgery or inpatient Tx. It is understood by the patient/guardian that if the Sx's persist or worsen they need to return immediately for re-evaluation. I discussed with the patient/guardian in detail that at this point there is no indication for admission to the hospital. It is understood, however, that if the symptoms persist or worsen the patient needs to return immediately for re-evaluation. ED course: No acute findings in CAT scan of abdomen or blood work. Patient and daughter requests another shot of pain medicine and would like to be sent home so she could fall asleep. Spoke at length with daughter regarding alternative medication and pain management. Also recommend GI follow-up given acute on chronic pain. Return precautions given and understood.. 06/25 01:19 Order name: Basic Metabolic Panel; Complete Time: 02:39 rn 06/25 01:19 Order name: CBC with Diff; Complete Time: 02:39 rn 06/25 01:19 Order name: Hepatic Function; Complete Time: 02:39 rn 06/25 01:19 Order name: Lipase; Complete Time: 02:39 rn 06/25 01:19 Order name: CT Abd/Pelvis - IV Contrast Only rn 06/25 02:41 Order name: CREATININE WHOLE BLOOD; Complete Time: 02:42 EDMS 06/25 01:19 Order name: IV Saline Lock; Complete Time: 01:43 rn 06/25 01:19 Order name: Labs collected and sent; Complete Time: 01:43 rn Administered Medications: 01:20 Drug: GI Cocktail without - (Maalox Suspension 30 ml, Lidocaine Liquid 2 % 15 wg ml) Route: PO; 01:20 Drug: ProTONIX (pantoprazole) 40 mg Route: IVP; Infused Over: 2 mins; Site: left upper wg arm; 01:25 Drug: Zofran (Ondansetron) 4 mg Route: IVP; Infused Over: 2 mins; Site: left upper arm; 01:37 Not Given (Duplicate Order): morphine 4 mg IVP once; RASS on ADMIN: Combtv4, Very rn Agttd3, Agttd2, Rstlss1, AlertClm0, Drwsy-1, Lt Sdtn-2, Mod Sdtn-3, Dp Sdtn-4, UnArsble-5 01:48 Drug: Dilaudid (HYDROmorphone) 1 mg Route: IVP; Site: left upper arm; mr2 04:03 Drug: Dilaudid (HYDROmorphone) 1 mg Route: IVP; Site: left upper arm; mr2 Disposition Summary: 06/25/21 03:31 Discharge Ordered Location: Home rn Problem: new rn Symptoms: have improved rn Condition: Stable rn Diagnosis - Chronic pain, not elsewhere classified rn - Upper abdominal pain, unspecified rn Followup: rn - With: Private Physician - When: As needed - Reason: Recheck today's complaints, Re-evaluation by your physician Discharge Instructions: - Discharge Summary Sheet rn - Abdominal Pain, Adult rn - Chronic Pain, Adult rn Forms: - Medication Reconciliation Form rn - Thank You Letter rn - Antibiotic pattern molder - Prescription Opioid Use rn Signatures: Dispatcher [employer] EDMS Xavi Ko MD MD rn Gamba, Liam, RN wg Reynard, Mike, RN RN mr2 Lisy Ha df1 Corrections: (The following items were deleted from the chart) 01:08 01:03 Home Meds: MS Contin Oral; df1 df1
--- NOTE | 2021-06-25 03:32 | ER ---
Nurse's Notes [facility] Name: Alberto Botello Age: 70 yrs Sex: Female : 1950 Arrival Date: 06/25/2021 Time: 00:42 Bed 16 Private MD: Diagnosis: Chronic pain, not elsewhere classified;Upper abdominal pain, unspecified Presentation: 06/25 00:48 Chief complaint: Patient states: RUQ pain. recently discharged from hospital for df1 Pancreatitis and UTI. Coronavirus screen: Vaccine status: Patient reports receiving the 2nd dose of the covid vaccine. Ebola Screen: Patient negative for fever greater than or equal to 101.5 degrees Fahrenheit, and additional compatible Ebola Virus Disease symptoms Patient denies exposure to infectious person. Patient denies travel to an Ebola-affected area in the 21 days before illness onset. Initial Sepsis Screen: Does the patient meet any 2 criteria? No. Patient's initial sepsis screen is negative. Does the patient have a suspected source of infection? No. Patient's initial sepsis screen is negative. Risk Assessment: Do you want to hurt yourself or someone else? Patient reports no desire to harm self or others. 00:48 Method Of Arrival: Wheelchair df1 00:48 Acuity: ART 3 df1 00:51 Note Pt states RUQ pain continuous. Admitted to hospital on Jun 13 for UTI and df1 Pancreatitis. Pain continues. [place] at home. Denies N, V, D. 01:10 Onset of symptoms was June 24, 2021. mr2 Triage Assessment: 04:29 General: Appears uncomfortable, Behavior is calm, cooperative. mr2 Historical: - Allergies: 00:51 No Known Allergies; df1 - Home Meds: 01:03 alprazolam 2 mg Oral tab 1 tab nightly [Active]; benztropine 0.5 mg Oral tab 1 tab 2 df1 times per day [Active]; Vitamin D Oral 1000 unit daily [Active]; citalopram 20 mg tab 1 tab once daily [Active]; [place] 7.5-325 mg Oral tab 1 tab TID [Active]; Linzess 145 mcg Oral cap 1 cap once daily [Active]; Amitiza 24 mcg Oral cap 1 cap [Active]; meclizine 25 mg Oral cap as needed [Active]; Protonix 40 mg Oral TbEC 1 tab once daily [Active]; lisinopril 10 mg Oral tab 1 tab once daily [Active]; risperadone 0.5 daily [Active]; ursodiol 500 mg Oral tab daily [Active]; - PMHx: 00:51 Anxiety; Chronic pain; Diabetes - NIDDM; Hepatitis; Hypertension; Osteoporosis; df1 Pancreatitis; - PSHx: 00:51 Cholecystectomy; df1 - Immunization history:: Adult Immunizations up to date, Client reports receiving the 2nd dose of the Covid vaccine. - Social history:: Smoking status: Patient denies any tobacco usage or history of. - Family history:: not pertinent. - Hospitalizations: : The patient was recently seen at [facility]. Screenin:08 Abuse screen: Denies threats or abuse. Nutritional screening: No deficits noted. df1 Tuberculosis screening: No symptoms or risk factors identified. Fall Risk Secondary diagnosis (15 points) IV access (20 points). Ambulatory Aid- Crutches/Cane/Walker (15 pts). Gait- Weak (10 pts.). Mental Status- Oriented to own ability (0 pts). Assessment: 01:00 Pain: Complains of pain in abdomen Pain currently is 6 out of 10 on a pain scale. mr2 Quality of pain is described as dull, Pain began 1 day ago. Is continuous. GI: Bowel sounds present X 4 quads. Abd is soft. Vital Signs: 00:48 BP 158 / 89; Pulse 80; Resp 18; Temp 99.2(O); Pulse Ox 99% on R/A; Weight 54.43 kg; df1 Height 5 ft. 0 in. (152.40 cm); Pain 10/10; 02:48 BP 147 / 82; Pulse 78; Resp 17; Temp 98.8; Pulse Ox 98% on R/A; Pain 6/10; mr2 00:48 Body Mass Index 23.44 (54.43 kg, 152.40 cm) df1 ED Course: 00:42 Patient arrived in ED. wm 00:51 Triage completed. df1 01:04 Xavi Ko MD is Attending Physician. rn 01:08 Arm band placed on right wrist. df1 01:09 Patient has correct armband on for positive identification. Placed in gown. Bed in low df1 position. Call light in reach. Side rails up X 1. Adult w/ patient. 01:22 Inserted saline lock: 20 gauge in left upper arm, using aseptic technique. mr2 01:38 Sherman Pang, RN is Primary Nurse. mr2 01:43 Basic Metabolic Panel Sent. wg 01:43 CBC with Diff Sent. wg 01:43 Hepatic Function Sent. wg 01:43 Lipase Sent. wg 02:21 CT Abd/Pelvis - IV Contrast Only In Process Unspecified. EDMS 04:29 No provider procedures requiring assistance completed. mr2 04:31 IV discontinued. mr2 Administered Medications: 01:20 Drug: GI Cocktail without - (Maalox Suspension 30 ml, Lidocaine Liquid 2 % 15 wg ml) Route: PO; 01:20 Drug: ProTONIX (pantoprazole) 40 mg Route: IVP; Infused Over: 2 mins; Site: left upper wg arm; 01:25 Drug: Zofran (Ondansetron) 4 mg Route: IVP; Infused Over: 2 mins; Site: left upper arm; wg 01:37 Not Given (Duplicate Order): morphine 4 mg IVP once; RASS on ADMIN: Combtv4, Very rn Agttd3, Agttd2, Rstlss1, AlertClm0, Drwsy-1, Lt Sdtn-2, Mod Sdtn-3, Dp Sdtn-4, UnArsble-5 01:48 Drug: Dilaudid (HYDROmorphone) 1 mg Route: IVP; Site: left upper arm; mr2 04:03 Drug: Dilaudid (HYDROmorphone) 1 mg Route: IVP; Site: left upper arm; mr2 Outcome: 03:31 Discharge ordered by . rn 04:30 Discharged to home via wheelchair. mr2 04:30 Condition: stable 04:30 Discharge instructions given to family, Instructed on discharge instructions, follow up and referral plans. 04:32 Patient left the ED. em Signatures: Dispatcher [employer] EDMS Vaibhav Gong RN RN em Nieto, Roman, MD MD rn Marsh, Wendy wm Gamba, Liam, RN wg Sherman Pang RN RN mr2 Lisy Ha df1 Brittany Tucker RN RN sj1 Corrections: (The following items were deleted from the chart) 01:01 00:59 Abuse screen: Denies threats or abuse. Denies injuries from another. [place] [address] : 00:59 Nutritional screening: No deficits noted. [place] [address] : 00:59 Tuberculosis screening: No symptoms or risk factors identified. [place] [address] : 00:59 Fall Risk None identified. [place] [address] : 00:59 Patient has correct armband on for positive identification. Bed in low position. [facility] Call light in reach. Side rails up X 1. [facility] : 00:59 No provider procedures requiring assistance completed. [place] [address] : 00:59 Patient did not have IV access during this emergency room visit. [place] [address] 00:59 Discharged to home ambulatory, [place] [address] 00:59 Condition: stable [place] [address] 00:59 Discharge instructions given to patient, Instructed on discharge instructions, [facility] follow up and referral plans. medication usage, Demonstrated understanding of instructions, follow-up care, medications, Prescriptions given X 1, [facility] 01:00 General: Appears in no apparent distress. Behavior is calm, cooperative, [facility] appropriate for age, [facility] : 01:00 Pain: Complains of pain in headache [place] [address] 01:00 EENT: Reports nasal congestion pain in forehead, right eye and left eye [place] [address] : 01:00 Neuro: No deficits noted. [place] [address] 01:00 Cardiovascular: No deficits noted. [place] [address] 01:00 Respiratory: No deficits noted. [place] [address] 01:00 GI: No deficits noted. [place] [address] 01:00 : No deficits noted. [place] [address] 01:00 Derm: No signs and/or symptoms reported regarding the dermatologic system. [place] [address] 01:00 Musculoskeletal: No signs and/or symptoms reported regarding the musculoskeletal [facility] system. [facility] : 01: GI: Bowel sounds present X 4 quads. Abd is soft and non tender [place] [address] 01:03 Home Meds: MS Contin Oral; df1 df1 01:10 00:48 BP 158 / 89; Pulse 18bpm; Resp 18bpm; Pulse Ox 99% RA; Temp 99.2F Oral; 54.43 kg; df1 Height 5 ft. 0 in.; BMI: 23.4; Pain 10/10; df1
[2021-06-25 04:39] VITALS: BP 147/82; TEMP 98.8; O2SAT 98
--- NOTE | 2021-06-25 11:04 | RAD REPORT ---
EXAM DESCRIPTION: CT - Abdomen Pelvis W Contrast - 06/25/2021 6:41 am CLINICAL HISTORY: 70 years, Female, ABD PAIN COMPARISON: 06/16/2021 TECHNIQUE: Contrast-enhanced images of the abdomen and pelvis were performed utilizing 5 mm slice th ickness at 5 mm interval reconstruction from the lung bases to the ischial tuberosities after the adm inistration of IV contrast. In addition multiplanar reformats in the coronal and sagittal plane were obtained and reviewed. This exam was performed according to our departmental dose-optimization protocol, which includes auto mated exposure control, adjustment of the mA and/or kV according to patient size and/or use of iterat tonio reconstruction technique. FINDINGS: The lung bases demonstrate to be clear. The liver, pancreas, spleen and adrenal glands demonstrate to be unremarkable, no focal lesions are n oted. Surgical clips within the gallbladder fossa correspond to previous cholecystectomy. There is no biliary duct dilatation. There is pneumobilia most likely related to previous sphincterotomy, simila r to prior study. The kidneys demonstrate normal uptake of contrast media. There is no evidence for nephrolithiasis and /or hydronephrosis. Grossly the unopacified stomach, small bowel and large bowel demonstrate to be within normal limits. There is no evidence for bowel dilatation/or free air. The appendix was not visualized. The urinary bladder demonstrate to be unremarkable. The uterus is absent. There is no adnexal yovana s. The aorta demonstrate atherosclerotic disease. There is no retroperitoneal lymphadenopathy. Th ere is no evidence for ascites or an/or significant abnormal fluid collections. The bone windows demo nstrate diffuse bony osteopenia. There is status post vertebroplasty at L1. IMPRESSION: No acute intra-abdominal process. Status post cholecystectomy and hysterectomy. Status post vertebroplasty at L1. No significant interval change in comparison with prior study. Electronically signed by: Maximilian Cooley MD 06/25/2021 2:39 AM CDT Due to temporary technical issues with the PACS/Fluency reporting system, reports are being signed by the in house radiologists without review as a courtesy to insure prompt reporting. The interpreting radiologist is fully responsible for the content of the report.
== END 2021-06-25 04:32 | disposition home or self-care (01) ==
LOC: ER 00:39
DX: G89.29 Other chronic pain (principal); I10 Essential (primary) hypertension; E11.9 Type 2 diabetes mellitus without complications
CPT/HCPCS: 85025; 80048; 36415; 82565; 80076; 83690; 74177; 96375; 96374; 99284; Q9967; C9113; J1170 ×2; J2405

== ENCOUNTER 2021-07-01 22:45 | Emergency (ER) | payer OTHER ==
[2021-07-01] MEDS ORDERED: ONDANSETRON 4 MG/2 ML VIAL ONE (23:27)
[2021-07-01] MEDS ORDERED: HYDROMORPHONE HCL 1 MG/ML INJ ONE (23:27)
[2021-07-01] MEDS ORDERED: PANTOPRAZOLE 40 MG INJ ONE (23:28)
[2021-07-02 00:16] LABS: Absolute Lymphocytes (CBC) 1.6 K/uL (0.7-4.9); Basophils % 0.3 % (0-1.3); Hematocrit 31.8 % (36.0-45.0); Lymphocytes % 16.3 % (15.3-44.8); MPV 7.4 fL (7.6-11.3); RBC Red Blood Cell Count 3.46 M/uL (3.86-4.86)
[2021-07-02 00:53] LABS: ALT/SGPT 36 U/L (12-78); AST/SGOT 24 U/L (15-37); Albumin 2.8 g/dL (3.4-5.0); Alkaline Phosphatase 76 U/L (45-117); BUN Blood Urea Nitrogen 21 mg/dL (7-18); Bicarbonate 25 mmol/L (21-32); Bilirubin Direct < 0.1 mg/dL (0-0.2); Bilirubin Total 0.2 mg/dL (0.2-1.0); Glucose Level 123 mg/dL (74-106); Lipase 358 U/L (73-393); Potassium 3.8 mmol/L (3.5-5.1); Protein, Total 6.8 g/dL (6.4-8.2); Sodium Level 141 mmol/L (136-145)
--- NOTE | 2021-07-02 01:01 | ER ---
Nurse's Notes [facility] Name: Alberto Botello Age: 70 yrs Sex: Female : 1950 Arrival Date: 07/01/2021 Time: 22:49 Bed 30 Private MD: Diagnosis: Chronic pain syndrome-abdominal pain Presentation: 07/01 22:54 Chief complaint: Patient's son or daughter states: Daughter states worsening LUQ pain df1 today. 4 Sunland's at home with no relief. Denies N/V/D. Coronavirus screen: Vaccine status: Patient reports receiving the 2nd dose of the covid vaccine. Ebola Screen: Patient negative for fever greater than or equal to 101.5 degrees Fahrenheit, and additional compatible Ebola Virus Disease symptoms Patient denies exposure to infectious person. Patient denies travel to an Ebola-affected area in the 21 days before illness onset. Initial Sepsis Screen: Does the patient meet any 2 criteria? No. Patient's initial sepsis screen is negative. Does the patient have a suspected source of infection? No. Patient's initial sepsis screen is negative. Risk Assessment: Do you want to hurt yourself or someone else? Patient reports no desire to harm self or others. Onset of symptoms was July 01, 2021 at 12:00. 22:54 Method Of Arrival: Ambulatory df1 22:54 Acuity: ART 3 df1 Triage Assessment: 23:56 General: Appears uncomfortable, Behavior is calm, cooperative. df1 Historical: - Allergies: 22:56 No Known Allergies; df1 - Home Meds: 22:56 alprazolam 2 mg Oral tab 1 tab nightly [Active]; Amitiza 24 mcg Oral cap 1 cap df1 [Active]; citalopram 20 mg tab 1 tab once daily [Active]; benztropine 0.5 mg Oral tab 1 tab 2 times per day [Active]; Linzess 145 mcg Oral cap 1 cap once daily [Active]; lisinopril 10 mg Oral tab 1 tab once daily [Active]; meclizine 25 mg Oral cap as needed [Active]; Sunland 7.5-325 mg Oral tab 1 tab TID [Active]; Protonix 40 mg Oral TbEC 1 tab once daily [Active]; risperadone 0.5 daily [Active]; ursodiol 500 mg Oral tab daily [Active]; Vitamin D Oral 1000 unit daily [Active]; - PMHx: 22:56 Anxiety; Chronic pain; Diabetes - NIDDM; Hepatitis; Hypertension; Osteoporosis; df1 Pancreatitis; - PSHx: 22:56 Cholecystectomy; df1 - Immunization history:: Adult Immunizations up to date, Client reports receiving the 2nd dose of the Covid vaccine. - Social history:: Smoking status: Patient denies any tobacco usage or history of. Screenin:39 Abuse screen: Denies threats or abuse. Nutritional screening: No deficits noted. On no kc4 prescribed diet Difficulty chewing/swallowing? No. Tuberculosis screening: No symptoms or risk factors identified. Never had TB. Possible symptoms: None Risk factors: None. Fall Risk None identified. No fall in past 12 months (0 pts). Secondary diagnosis (15 points) IV access (20 points). Ambulatory Aid- None/Bed Rest/Nurse Assist (0 pts). Gait- Normal/Bed Rest/Wheelchair (0 pts) Mental Status- Oriented to own ability (0 pts). Total Huffman Fall Scale indicates Low Risk Score (25-44 pts). Fall prevention measures have been instituted. Side Rails Up X 2 Family Present and informed to notify staff if they need to leave bedside. Assessment: 23:39 Pain: Complains of pain in abdomen Pain does not radiate. Pain currently is 8 out of 10 kc4 on a pain scale. at worst was 10 out of 10 on a pain scale. level that patient reports is acceptable is 2 out of 10 on a pain scale. Quality of pain is described as sharp, Is intermittent, Alleviated by medications, Aggravated by increased activity. Neuro: No deficits noted. Cardiovascular: No deficits noted. Respiratory: No deficits noted. GI: Bowel sounds present X 4 quads. Abd is soft X 4 quads Abd is non tender in right lower quadrant Reports lower abdominal pain. : No deficits noted. No signs and/or symptoms were reported regarding the genitourinary system. EENT: No deficits noted. Derm: No deficits noted. Musculoskeletal: No deficits noted. No signs and/or symptoms reported regarding the musculoskeletal system. Vital Signs: 22:54 BP 138 / 81; Pulse 89; Resp 18; Temp 99.9; Pulse Ox 99% on R/A; Weight 54.88 kg; Height df1 5 ft. 0 in. (152.40 cm); Pain 10/10; 23:20 BP 148 / 79; Pulse 84; Resp 18; Temp 98.8(O); Pulse Ox 98% on R/A; Pain 8/10; kc4 07/02 00:48 BP 127 / 76 LA Sitting (auto/reg); Pulse 76; Resp 18; Temp 98.7; Pulse Ox 98% on R/A; kc4 Pain 4/10; 01:25 BP 132 / 81; Pulse 78; Resp 18; Temp 98.8(O); Pulse Ox 99% on R/A; Pain 2/10; kc4 07/01 22:54 Body Mass Index 23.63 (54.88 kg, 152.40 cm) df1 Brule Coma Score: 07/01 23:39 Eye Response: spontaneous(4). Verbal Response: oriented(5). Motor Response: obeys kc4 commands(6). Total: 15. ED Course: 22:49 Patient arrived in ED. ja2 22:54 [facility] Hinkle [facility]NP-C [facility] kb 22:54 Xavi Ko MD is Attending Physician. kb 22:56 Triage completed. df1 22:59 Sherman Pang, YOSVANY is Primary Nurse. mr2 23:39 Arm band placed on right wrist. kc4 23:39 Patient has correct armband on for positive identification. Placed in gown. Bed in low kc4 position. Call light in reach. Side rails up X 1. 23:39 No provider procedures requiring assistance completed. kc4 23:50 Inserted saline lock: 24 gauge in right forearm, using aseptic technique. kc4 07/02 00:00 Basic Metabolic Panel Sent. kc4 00:00 CBC with Diff Sent. kc4 00:00 Hepatic Function Sent. kc4 00:00 Lipase Sent. kc4 01:26 IV discontinued, intact, bleeding controlled, No redness/swelling at site. Pressure kc4 dressing applied. Administered Medications: 07/01 23:25 Drug: Dilaudid (HYDROmorphone) 1 mg Route: IVP; Site: left forearm; mr2 07/02 01:25 Follow up: Response: No adverse reaction; Pain is decreased kc4 07/01 23:25 Drug: Zofran (Ondansetron) 4 mg Route: IVP; Site: left forearm; mr2 07/02 01:25 Follow up: Response: No adverse reaction kc4 07/01 23:25 Drug: ProTONIX (pantoprazole) 40 mg Route: IVP; Site: left forearm; mr2 07/02 01:25 Follow up: Response: No adverse reaction kc4 01:15 Drug: Zofran (Ondansetron) 4 mg Route: IVP; Site: right forearm; kc4 01:24 Follow up: Response: No adverse reaction kc4 01:24 Drug: Dilaudid (HYDROmorphone) 1 mg Route: IVP; Site: right forearm; kc4 01:24 Follow up: Response: No adverse reaction; Pain is decreased kc4 Outcome: 01:01 Discharge ordered by . kb 01:26 Discharged to home via wheelchair, with family. kc4 01:26 Condition: stable 01:26 Discharge instructions given to patient, family, Instructed on discharge instructions, follow up and referral plans. medication usage, Demonstrated understanding of instructions, follow-up care. 01:27 Patient left the ED. kc4 Signatures: Amisha Hinkle, REMOVABLE PROSTHODONTIST-C REMOVABLE PROSTHODONTIST-Brianna Escalona kc4 Hawa Brannon Mike, RN RN mr2 Lisy Ha df1
--- NOTE | 2021-07-02 01:01 | EDPHYS ---
Physician Documentation [facility] Name: Alberto Botello Age: 70 yrs Sex: Female : 1950 Arrival Date: 07/01/2021 Time: 22:49 Bed 30 Private MD: ED Physician Xavi Ko HPI: 07/01 22:56 This 70 yrs old Female presents to ER via Ambulatory with complaints of Abdominal Pain. kb 22:56 The patient presents with abdominal pain in the left upper quadrant. Onset: The kb symptoms/episode began/occurred and became worse today. The symptoms do not radiate. Associated signs and symptoms: none. The symptoms are described as constant. Modifying factors: The symptoms are alleviated by nothing, the symptoms are aggravated by nothing. Severity of pain: At its worst the pain was moderate severe in the emergency department the pain is unchanged. The patient has experienced similar episodes in the past, chronically. The patient has been recently seen at the [facility] Emergency Department, for similar complaints labs were performed, CT scan was performed, 06/25/21 and 06/14/21. Daughter reports pt has this abd pain everyday, states it is chronic. Some days it is worse than others and she has to come in to get dilaudid because the hydrocodone doesn't work. Pt takes hydrocodone for chronic abd pain. Reports the pain is exactly the same as she normally has. . Historical: - Allergies: 22:56 No Known Allergies; df1 - Home Meds: 22:56 alprazolam 2 mg Oral tab 1 tab nightly [Active]; Amitiza 24 mcg Oral cap 1 cap df1 [Active]; citalopram 20 mg tab 1 tab once daily [Active]; benztropine 0.5 mg Oral tab 1 tab 2 times per day [Active]; Linzess 145 mcg Oral cap 1 cap once daily [Active]; lisinopril 10 mg Oral tab 1 tab once daily [Active]; meclizine 25 mg Oral cap as needed [Active]; Parrott 7.5-325 mg Oral tab 1 tab TID [Active]; Protonix 40 mg Oral TbEC 1 tab once daily [Active]; risperadone 0.5 daily [Active]; ursodiol 500 mg Oral tab daily [Active]; Vitamin D Oral 1000 unit daily [Active]; - PMHx: 22:56 Anxiety; Chronic pain; Diabetes - NIDDM; Hepatitis; Hypertension; Osteoporosis; df1 Pancreatitis; - PSHx: 22:56 Cholecystectomy; df1 - Immunization history:: Adult Immunizations up to date, Client reports receiving the 2nd dose of the Covid vaccine. - Social history:: Smoking status: Patient denies any tobacco usage or history of. ROS: 22:56 Constitutional: Negative for fever, chills, and weight loss. kb 22:56 Abdomen/GI: Positive for abdominal pain, Negative for nausea, vomiting, and diarrhea. 22:56 All other systems are negative. Exam: 22:56 Constitutional: This is a well developed, well nourished patient who is awake, alert, kb and in no acute distress. Head/Face: Normocephalic, atraumatic. ENT: Moist Mucous membranes Cardiovascular: Regular rate and rhythm with a normal S1 and S2. No gallops, murmurs, or rubs. No pulse deficits. Respiratory: Respirations even and unlabored. No increased work of breathing, no retractions or nasal flaring. Skin: Warm, dry with normal turgor. Normal color. MS/ Extremity: Pulses equal, no cyanosis. Neurovascular intact. Full, normal range of motion. Neuro: Awake and alert, GCS 15, oriented to person, place, time, and situation. Moves all extremities. Normal gait. Psych: Awake, alert, with orientation to person, place and time. Behavior, mood, and affect are within normal limits. 22:56 Abdomen/GI: Inspection: abdomen appears normal, Bowel sounds: normal, in all quadrants, Palpation: soft, in all quadrants, mild abdominal tenderness, in the left lower quadrant, moderate abdominal tenderness, in the left upper quadrant. Vital Signs: 22:54 BP 138 / 81; Pulse 89; Resp 18; Temp 99.9; Pulse Ox 99% on R/A; Weight 54.88 kg; Height df1 5 ft. 0 in. (152.40 cm); Pain 10/10; 23:20 BP 148 / 79; Pulse 84; Resp 18; Temp 98.8(O); Pulse Ox 98% on R/A; Pain 8/10; kc4 07/02 00:48 BP 127 / 76 LA Sitting (auto/reg); Pulse 76; Resp 18; Temp 98.7; Pulse Ox 98% on R/A; kc4 Pain 4/10; 01:25 BP 132 / 81; Pulse 78; Resp 18; Temp 98.8(O); Pulse Ox 99% on R/A; Pain 2/10; kc4 07/01 22:54 Body Mass Index 23.63 (54.88 kg, 152.40 cm) df1 Angelita Coma Score: 07/01 23:39 Eye Response: spontaneous(4). Verbal Response: oriented(5). Motor Response: obeys kc4 commands(6). Total: 15. MDM: 22:54 Patient medically screened. kb 22:56 Data reviewed: vital signs, nurses notes. Data interpreted: Pulse oximetry: on room air kb is 99 %. Interpretation: normal. 07/02 00:54 Counseling: I had a detailed discussion with the patient and/or guardian regarding: the kb historical points, exam findings, and any diagnostic results supporting the discharge/admit diagnosis, lab results, the need for outpatient follow up, a family practitioner, a remote computer terminal operator, a dip painter, to return to the emergency department if symptoms worsen or persist or if there are any questions or concerns that arise at home. 01:00 ED course: Pt had CT scans on June 12, and with normal results. Pain is kb exactly the same today. Labs wnl. . 07/01 22:54 Order name: Basic Metabolic Panel; Complete Time: 00:53 kb 07/01 22:54 Order name: CBC with Diff; Complete Time: 00:24 kb 07/01 22:54 Order name: Hepatic Function; Complete Time: 00:53 kb 07/01 22:54 Order name: Lipase; Complete Time: 00:53 kb 07/01 22:54 Order name: IV Saline Lock; Complete Time: 00:00 kb 07/01 22:54 Order name: Labs collected and sent; Complete Time: 00:00 kb Administered Medications: 07/01 23:25 Drug: Dilaudid (HYDROmorphone) 1 mg Route: IVP; Site: left forearm; mr2 07/02 01:25 Follow up: Response: No adverse reaction; Pain is decreased kc4 07/01 23:25 Drug: Zofran (Ondansetron) 4 mg Route: IVP; Site: left forearm; mr2 07/02 01:25 Follow up: Response: No adverse reaction kc4 07/01 23:25 Drug: ProTONIX (pantoprazole) 40 mg Route: IVP; Site: left forearm; mr2 07/02 01:25 Follow up: Response: No adverse reaction kc4 01:15 Drug: Zofran (Ondansetron) 4 mg Route: IVP; Site: right forearm; kc4 01:24 Follow up: Response: No adverse reaction kc4 01:24 Drug: Dilaudid (HYDROmorphone) 1 mg Route: IVP; Site: right forearm; kc4 01:24 Follow up: Response: No adverse reaction; Pain is decreased kc4 Disposition: 01:40 Co-signature as Attending Physician, Xavi Ko MD I agree with the assessment and rn plan of care. Attestation: The patient's history, exam findings, diagnostics, and a summary of any interventions or procedures was reviewed in detail with Amisha RODRIGUEZ. Disposition Summary: 07/02/21 01:01 Discharge Ordered Location: Home kb Condition: Stable kb Diagnosis - Chronic pain syndrome - abdominal pain kb Followup: kb - With: Emergency Department - When: As needed - Reason: Worsening of condition Followup: kb - With: Private Physician - When: 2 - 3 days - Reason: Recheck today's complaints, Continuance of care, Re-evaluation by your physician Discharge Instructions: - Discharge Summary Sheet kb - Chronic Pain, Adult kb Forms: - Medication Reconciliation Form kb - Thank You Letter kb - Antibiotic Education kb - Prescription Opioid Use kb Signatures: Dispatcher [employer] EDAmisha Treadwell FNP-C FNP-Xavi Ahn MD MD rn Chuman, Kourtney kc4 Sherman Pang RN RN mr2 Lisy Ha df1
[2021-07-02] MEDS ORDERED: ONDANSETRON 4 MG/2 ML VIAL ONE (01:30)
[2021-07-02] MEDS ORDERED: HYDROMORPHONE HCL 1 MG/ML INJ ONE (01:30)
[2021-07-02 01:43] VITALS: BP 132/81; TEMP 98.8; O2SAT 99
== END 2021-07-02 01:27 | disposition home or self-care (01) ==
LOC: ER 22:45
DX: G89.4 Chronic pain syndrome (principal); I10 Essential (primary) hypertension; E11.9 Type 2 diabetes mellitus without complications
CPT/HCPCS: 85025; 80048; 36415; 80076; 83690; 99284; C9113; J1170 ×2; J2405 ×2

== ENCOUNTER 2021-08-20 13:16 | Emergency (ER) | payer OTHER ==
--- OUTSIDE RECORDS SUMMARY | 2021-08-20 13:24 | XMS REPORT | Continuity of Care Document ---
:1950 Author Organization [facility] t Address [address] [place] [address] Care Team Providers Name Role Phone ROBERTS, H Primary Care Physician Unavailable Maribel BURNETT Attending Clinician Unavailable JAWORION Attending Clinician Unavailable Attending Clinician Unavailable Singer JOYA Attending Clinician Doctor Unassigned, Name Attending Clinician Unavailable Roxie MAY Attending Clinician Amy Palencia MD Attending Clinician Merchant MAY Attending Clinician Jose Enrique MAY Attending Clinician Сергей Attending Clinician Yasmani Shelton MD Attending Clinician EVANGELINA Attending Clinician Unavailable Galina Nieves MA Attending Clinician Unavailable Maribel Burnett MD Attending Clinician Srini Schuster MD Attending Clinician Ammy Boone MD Attending Clinician Kathy Chavez MD Attending Clinician Eldon Bahena MD Attending Clinician DOMENICO Attending Clinician Unavailable Maribel BURNETT Admitting Clinician Unavailable Admitting Clinician Unavailable AMY PALENCIA Admitting Clinician Unavailable SRINI SCHUSTER Admitting Clinician Unavailable Payers Payer Name Policy Type Policy Number Effective Date Expiration Date Brandy haywood MEDICARE A B [id number] 2021 00:00:00 [place] [id number] MEDICARE PART A [id number] \\T\\ B - MEDICARE [facility]-MEDICAID - [id number] MEDICAID MEDICARE PART A [id number] 2003 \\T\\ B 00:00:00 MEDICAID [facility] [place] [facility] [id number] 2013 00:00:00 Problems Condition Condition Condition Status Onset Resolution Last Treating Co mments Source Name Details Category Date Date Treatment Clinician Date Common Common Disease Active [facility] bile duct bile duct 8-24 Luke s - calculus calculus 00:00: Medica l 00 Center Abdominal Abdominal Disease Active [facility] pain pain 6- [facility] - 00:00: Medical 00 Center Closed Closed Disease Active Univers fracture fracture 7 ity of of first of first 00:00: [place] lumbar lumbar 00 Medical vertebra vertebra Branch with with routine routine healing healing Hypertensi Hypertensi Disease Active C [facility] on on [facility] Diabetes Diabetes Disease Active [facility] mellitus mellitus [facility] New onset New onset Problem Active Uni [...] [place] Physici ans Allergies, Adverse Reactions, Alerts Allergy Allergy Status Severity Reaction(s) Onset Inactive Treating Comm ents Source Name Type Date Date Clinician NO KNOWN Allergy Active [facility] ALL[facility]GIE [facility] NO KNOWN Drug Active Univers ALLERGIE Class ity of S [place] [facility] [place] Family History Family Member Diagnosis Comments Start Date Stop Date Source Father Family history of Univers ity of [place] lung cancer Physicians Social History Social Habit Start Date Stop Date Quantity Comments Source Exposure to Not sure [facility] SARS-CoV-2 (event) [facility] Tobacco use and 2021-05-07 2021-05-[address] Jasmyn kes - exposure 00:00:00 00:00:00 Medical Center Alcohol intake 2016-03-18 2016-03-18 0 /d [facility] 00:00:00 00:00:00 Medical Branch Sex Ass[birth year] At [birth year] [facility] 00:00:00 00:00:00 Medical Branch Smoking Status Start Date Stop Date Source Never smoker [facility] Medications Ordered Filled Start Stop Current Ordering Indication Dosage Frequency Signature Comments Components Source Medication Medication Date Date Medication? Clinician (SIG) Name Name iopamidol 2020-09- No [id number] 100mL 100 mL, Univers (ISOVUE 09-23 Intravenou ity o f 370-500 mL) 17:55: 17:55 s, ONCE, 1 [place] injection 00 :00 dose, On Medica l 100 mL Tue Branch 07/24/21 at 1215, Routine ondansetron 2020-09 No 4mg 4 mg, Slow Univers (ZOFRAN 09-23 IV Push, ity of (PF)) 17:45: 16:38 ONCE, 1 [place] injection 4 00 :00 dose, On Medi josephine mg Tue Branch 07/24/21 at 1145, Routine morpHINE 2020-09 Yes 4mg 4 mg, Slow Uni vers injection 4 09-23 IV Push, ity of mg 16:30: Q4HPRN, [place] [id number] Starting Medical on Tue Branch 07/24/21 at 1030, Until Discontinu ed, Routine, Pain (scale 7-10) ALPRAZolam Yes 2mg Take 2 mg CH [...] [address] (CeleXA) 20 8- by mouth Luke s - MG tablet [...] MCG 10:59: mouth Medical capsule 53 daily. [place] alendronate Yes 70mg Take [address] (FOSAMAX) 8-26 by mouth Lukes - 70 MG 10:59: every 7 Medical tablet 53 days Take Center in the morning with a full glass of water, on an empty stomach, and do not take anything else by mouth or lie down for the next 30 min. . HYDROcodone Yes 1{tbl} Q.[id number] Take [address] -acetaminop 8-26 [id number] tablet by Lukes - hen (NORCO 10:59: [...] Medic al MG tablet 53 Center linaCLOtide 2021-0 Yes 145ug Take [address] [...] next 30 min. . HYDROcodone Yes 1{tbl} Q.[id number] Take [address] -acetaminop 8-26 [id number] tablet by Lukes - hen (NORCO 10:59: [...] MCG 10:59: mouth Medical capsule 53 daily. [place] alendronate Yes 70mg Take [address] (FOSAMAX) 8-26 by mouth Lukes - 70 MG 10:59: every 7 Medical tablet 53 days Take Center in the morning with a full glass of water, on an empty stomach, and do not take anything else by mouth or lie down for the next 30 min. . HYDROcodone Yes 1{tbl} Q.[id number] Take [address] -acetaminop 8-26 [id number] tablet by Lukes - hen (NORCO 10:59: 3D mouth 3 Medi josephine 5-325) 53 (three) Center 5-325 mg times per tablet daily. ursodioL Yes 500mg QD Take [address] (ACTIGALL) 8-26 mg by Lukes - 500 MG 10:59: mouth Medical tablet 53 daily. [place] ALPRAZolam Yes 2mg Take 2 mg CH [...] MCG 09:40: mouth Medical capsule 47 daily. Center alendronate Yes 70mg Take [address] (FOSAMAX) 8-26 by mouth [facility]ukes - 70 MG 09:40: every 7 Medical tablet 47 days Take Center in the morning with a full glass of water, on an empty stomach, and do not take anything else by mouth or lie down for the next 30 min. . HYDROcodone Yes 1{tbl} Q.[id number] Take [address] -acetaminop 8-26 [id number] tablet by Lukes - hen (NORCO 09:40: 3D mouth 3 Medi josephine 5-325) 47 (three) Center 5-325 mg times per tablet daily. ursodioL Yes 500mg QD Take [address] (ACTIGALL) 8-26 mg by Lukes - 500 MG 09:40: mouth Medical tablet 47 daily. [place] meclizine Yes [facility] (ANTIVERT) 6-21 [facility]ukes - 25 mg 00:00: Medical tablet 00 [place] meclizine Yes [facility] (ANTIVERT) 6-21 [facility]ukes - 25 mg 00:00: Medical tablet 00 [place] meclizine Yes [facility] (ANTIVERT) 6-21 [facility]ukes - 25 mg 00:00: Medical tablet 00 [place] meclizine Yes [facility] (ANTIVERT) 6-21 [facility]ukes - 25 mg 00:00: Medical tablet 00 [place] Nortriptyli Nortriptyli Yes HOLLIE TAKE 1 Univers ne HCl - 25 ne HCl - 25 5-30 DOMENICO M.D. CAPSULE AT ity of MG Oral MG Oral 00:00: BEDTIME. Arnie as Capsule Capsule Physici ans Hemocyte Hemocyte Yes R.N. Unive [...] HOLLIE Medrol Univers ISolone 4 ISolone 4 5-23 DOMENICO Michelle dose lior ity of MG Oral MG Oral 00:00: (24 mg [place] Tablet Tablet 00 with Physici Therapy Therapy tapering ans Pack Pack dose to 4 mg over 6 days) MDD:24mg morphine Yes 30mg Take 30 mg Uni vers (AVINZA) 30 03-18 by mouth ity of mg 24 hr 08:12: daily. [place] capsule 18 Medical Branch ALPRAZolam Yes 2mg Take 2 mg [place] (XANAX) 2 07 by mouth ity of mg tablet 08:12: at [place]time [place] 18 as needed Medical for Sleep. Branch amitriptyli Yes 10mg Take 10 mg Univers ne (ELAVIL) 707 by mouth ity of 10 mg 08:12: at [place] tablet 18 bedtime. Medical Branch morphine Yes 30mg Take 30 mg Uni vers (AVINZA) 30 03-18 by mouth ity of mg 24 hr 08:12: daily. [place] capsule 18 Medical Branch ALPRAZolam Yes 2mg Take 2 mg [place] (XANAX) 2 -07 by mouth ity of mg tablet 08:12: at [place]time [place] 18 as needed Medical for Sleep. Branch amitriptyli 2016-0 Yes 10mg Take 10 mg Univers ne (ELAVIL) 7-07 by mouth ity of 10 mg 08:12: at [place] tablet 18 bedtime. Medical Branch meloxicam Yes TAKE 1 Univer s (MOBIC) 7.5 6-15 TABLET BY ity of mg tablet 00:00: MOUTH [place] 00 TWICE A Medical DAY WITH Branch FOOD meloxicam Yes TAKE 1 Univer s (MOBIC) 7.5 6-15 TABLET BY ity of mg tablet 00:00: MOUTH 00 TWICE A Medical DAY WITH [place] FOOD morpHINE Yes TK 1 AND Unive rs I.R. (MSIR) 6- 1/2 TS PO ity of 30 mg 00:00: BID. [place] tablet Medical Branch morpHINE Yes TK 1 AND Unive rs I.R. (MSIR) 6- 1/2 TS PO ity of 30 mg 00:00: BID. [place] tablet 00 Medical Branch Lisinopril, Yes Univer s Bulk, 100 % 6-03 ity of Powd 00:00: [place] Medical Branch Lisinopril, Yes Univer s Bulk, 100 % 6-03 ity of Powd 00:00: [place] 00 Medical Branch gabapentin Yes TAKE 1 Unive rs (NEURONTIN) 5-20 TABLET BY ity of 600 mg 00:00: MOUTH [place] tablet 00 EVERY 8 Medical HOURS Branch gabapentin Yes TAKE 1 Unive rs (NEURONTIN) 5-20 TABLET BY ity of 600 mg 00:00: MOUTH [place] tablet 00 EVERY 8 Medical HOURS Branch ciprofloxac 2014-09 Yes 500mg Take 1 Tab Univers in HCl 1-30 by mouth 2 ity of (CIPRO) 500 00:00: (two) [place] mg tablet 00 times Medical daily. Branch ciprofloxac 2014-09 Yes 500mg Take 1 Tab Univers in HCl 1-30 by mouth 2 ity of (CIPRO) 500 00:00: (two) [place] mg tablet 00 times Medical daily. Branch Immunizations Ordered Filled Immunization Date Status Comments [facility] e Immunization Name Name SARS-COV-2 COVID-19 2020-11-11 Completed Unive rsity of PFIZER VACCINE 00:00:00 [facility] SARS-COV-2 COVID-19 2020-11-11 Completed Unive rsity of PFIZER VACCINE 00:00:00 [facility] SARS-COV-2 COVID-19 2020-10-21 Completed Unive rsity of PFIZER VACCINE 00:00:00 [facility] SARS-COV-2 COVID-19 2020-10-21 Completed Unive rsity of PFIZER VACCINE 00:00:00 [facility] Vital Signs Vital Name Observation Time Observation Value Comments Source WEIGHT 2021-03-10 62.596 kg 11:08:00 Systolic blood 2021-07-24 144 mm[Hg] University of pressure 19:28:00 [facility] Diastolic blood 2021-07-24 90 mm[Hg] University o f pressure 19:28:00 [facility] Heart rate 2021-07-24 87 /min [facility] 19:28:00 [facility] Respiratory rate 2021-07-24 18 /min [facility] 19:28:00 [facility] Oxygen saturation 2021-07-24 97 /min [facility] Arterial blood 19:28:00 [facility] by Pulse oximetry Dwight Body temperature 2021-07-24 37 Carolann [facility] 16:20:00 [facility] Body weight 2021-07-24 61.236 kg University 16:20:00 [facility] BMI 2021-07-24 25.51 kg/m2 University 16:20:00 [facility] HEIGHT 2021-05-04 152.4 cm 17:29:00 WEIGHT 2021-05-04 61.689 kg 17:29:00 HEIGHT 2021-05-04 152.4 cm 17:29:00 WEIGHT 2021-05-04 61.689 kg 17:29:00 WEIGHT 2021-03-10 62.596 kg 11:08:00 Systolic blood 2021-05-07 156 mm[Hg] [facility] - pressure 08:00:[address] [facility] Diastolic blood 2021-05-07 74 mm[Hg] [facility] - pressure 08:00:[address] [facility] Heart rate 2021-05-07 76 /min [facility] - 08:00:[address] [facility] Body temperature 2021-05-[address] [facility] - 08:00:[address] [facility] Respiratory rate 2021-05-07 17 /min [facility] - 08:00:[address] [facility] Oxygen saturation 2021-05-07 97 /min [facility] St Vinesk es - in Arterial blood 08:00:00 Medical Ce nter by Pulse oximetry Body height 2021-05-04 152.4 cm [facility] St Tian - 17:29:[address] [facility] Body weight 2021-05-04 61.689 kg [facility] St Tian - 17:29:[address] [facility] BMI 2021-05-04 26.56 kg/m2 [facility] Jaylan - 17:29:[address] [facility] BP Systolic 2018-02-01 131 mm[Hg] Location: [facility] 08:36:00 Position: [place] Physician s Sitting BP Diastolic 2018-02-01 78 mm[Hg] Location: [facility] 08:36:00 Position: [place] Physician s Sitting Height 2018-02-01 60 [in_us] [facility] 08:36:00 [place] Physician s Weight 2018-02-01 117 [lb_av] [facility] 08:36:00 [place] Physician s Body Mass Index 2018-02-01 22.85 kg/m2 [facility] Calculated 08:36:00 [place] Physician s Heart Rate 2018-02-01 73 /min Location: [facility] 08:36:00 Brachial [place] Physician s Artery; Procedures Procedure Date / Time Performing Clinician Source Performed CT ABDOMEN PELVIS W 2021-07-24 18:00:55 Glenn Fu [facility] CONTRAST Medical Branch URINALYSIS 2021-07-24 17:39:00 [facility] LIPASE 2021-07-24 16:33:00 Fu, [facility] COMP. METABOLIC PANEL 2021-07-24 16:33:00 Glenn Fu [facility] ([id number]) Medical Branch CBC WITH DIFF 2021-07-24 16:33:00 [facility] NOTICE OF PRIVACY 2021-07-24 16:11:11 Doctor Juan, [facility] PRACTICES [place] [facility] CONSENT/REFUSAL FOR 2021-07-24 16:10:58 Doctor Juan, [facility] DIAGNOSIS AND TREATMENT [place] [facility] REPORT OF PROCEDURE - 2021-05-06 16:07:30 Juan Alberto Shelton [facility] - ENDOSCOPY [facility] ERCP,DIRECT VISUALIZATION 2021-05-06 15:00:00 Juan Alberto Shelton [facility] PROCEDURE W/ C-ARM 2021-05-06 15:00:00 Juan Alberto Shelton [facility] S [facility] ERCP,BALLOON SWEEPING 2021-05-06 15:00:00 [facility] CBC W/PLT COUNT & AUTO 2021-05-06 05:51:00 Fabiánicherco [facility] DIFFERENTIAL [facility] BASIC METABOLIC PANEL (7) 2021-05-06 05:51:00 Fabiánicherjenny [facility] HEPATIC FUNCTION PANEL 2021-05-06 05:51:00 Prema [facility] ABORH, MANUAL 2021-05-05 05:07:00 Zunilda Rubin [facility] TYPE AND SCREEN, 2021-05-05 04:14:00 Roxie [facility] AUTOMATED [facility] PROTHROMBIN TIME/INR 2021-05-05 04:14:00 [facility] SARS-COV2/RT-PCR ([facility] & 2021-05-05 00:18:00 Britney Lloyd [facility] - REF LABS) [facility] BLOOD GAS, VENOUS 2021-05-05 00:14:00 Roxie [facility] KETONE, BLOOD 2021-05-05 00:14:00 Roxie [facility] HIGH SENSITIVITY TROPONIN 2021-05-05 00:14:00 Roxie Smackoveramanda Bravo [facility] ED ECG INTERPRETATION 2021-05-04 23:15:17 Roxie [facility] BASIC METABOLIC PANEL (7) 2021-05-04 21:30:00 Cherie Faustin C [facility] HEPATIC FUNCTION PANEL 2021-05-04 21:30:00 Roxie [facility] AMYLASE 2021-05-04 21:30:00 Roxie [facility] LIPASE 2021-05-04 21:30:00 Roxie [facility] CBC W/PLT COUNT & AUTO 2021-05-04 19:37:00 Roxie [facility] ECG 12-LEAD 2021-05-04 19:22:33 Unknown, Hl7 Doctor [facility] POCT-GLUCOSE METER 2021-03-11 08:21:00 Jessica Boone [facility] COMPREHENSIVE METABOLIC 2021-03-11 06:09:00 [facility] REPORT OF PROCEDURE - 2021-03-10 23:43:51 Kathy [facility] ENDOSCOPY URL [facility] POCT-GLUCOSE METER 2021-03-10 16:43:00 [facility]SE [facility]ER 2021-03-10 12:45:00 Berna Boonecharly [facility] [place] ERCP 2021-03-10 12:02:00 Desiree Duggan [facility] ERCP,PAPILLOTOMY 2021-03-10 11:31:00 Kathy [facility] PROCEDURE W/ C-ARM 2021-03-10 11:31:00 Kathy [facility] ERCP,BALLOON SWEEPING 2021-03-10 11:31:00 Kathy [facility] POCT-GLUCOSE METER 2021-03-10 09:07:00 [facility] CBC (HEMOGRAM ONLY) 2021-03-10 04:50:00 [place] [facility] COMPREHENSIVE METABOLIC 2021-03-10 04:50:00 [place] [facility] HEMOGLOBIN A1C 2021-03-10 04:50:00 [place] [facility] POCT-GLUCOSE METER 2021-03-09 23:54:00 PaoloBernacharly [facility] SARS-COV2/RT-PCR ([facility] & 2021-03-09 20:13:00 Urban Desireeshellie [facility] - REF LABS) [facility] POCT-GLUCOSE METER 2021-03-09 17:22:00 PaoloBernacharly [facility] MR ABDOMEN WITHOUT IV 2021-03-09 15:38:00 [facility] CONTRAST MRCP [facility] POCT-GLUCOSE METER 2021-03-09 12:22:00 [facility] URINALYSIS W/ REFLEX 2021-03-09 10:56:00 [facility] URINE CULTURE [facility] HEPATIC FUNCTION PANEL 2021-03-09 05:25:00 [facility] PROTHROMBIN TIME/INR 2021-03-09 05:25:00 [facility] MAGNESIUM 2021-03-09 05:25:00 [facility] BASIC METABOLIC PANEL (7) 2021-03-09 05:25:00 [place] Clive I [facility] CBC W/PLT COUNT & AUTO 2021-03-09 05:25:00 [facility] DIFFERENTIAL [facility] HEMOGLOBIN A1C 2021-03-09 05:25:00 [facility] MRI Brain wo contrast 2018-02-08 00:00:00 [facility] [id number] Physicians MRI Brain w/wo contrast 2018-02-01 00:00:00 [facility] [address] Physicians History of Gallbladder [facility] surgery Physicians Plan of Care Planned Activity Planned Date Details Comments Source Future Scheduled 2021-09-09 Hemoglobin A1c [facility] Jasmyn kes - Test 00:00:00 [facility] Medical [place] (procedure) [code = 23981409] Future Scheduled 2021-09-[address] [facility] - Test 00:00:00 measurement Medical Center (procedure) [code = 97556955] Future Scheduled 2021-09-[address] [facility] - Test 00:00:00 measurement Medical Center (procedure) [code = 48970626] Future Scheduled 2021-09-[address] J[facility]ymn k[facility] - Test 00:00:00 measurement Medical Center (procedure) [code = 75756705] Future Scheduled 2021-05-13 INFLUENZA VACCINE (#1) C [...] [facility]ukes - Test 00:00:00 (1 of 1 [facility] [id number] PCV13) [code = PNEUMOCOCCAL 65+ YRS (1 of 1 - [id number]_Lllztrs PCV13)] Future Scheduled 2013 PNEUMOCOCCAL 65+ YRS [facility] - Test 00:00:00 (1 of 1 [facility] [id number] PCV13) [code = PNEUMOCOCCAL 65+ YRS (1 of 1 - XQBY55_Lckzzad PCV13)] Future Scheduled 2013 PNEUMOCOCCAL 65+ YRS [facility] - Test 00:00:00 (1 of 1 [facility] [id number]_Aifsyet PCV13) [code = PNEUMOCOCCAL 65+ YRS (1 of 1 - ATZW24_Nyzlckz PCV13)] Future Scheduled 2013 PNEUMOCOCCAL 65+ Y[facility] - Test 00:00:00 ([address] [place] [address] Center [id number] PCV13) [code = PNEUMOCOCCAL 65+ YRS (1 of 1 - SZVJ13_Ezvnkyh PCV13)] Future Scheduled 2004-10-14 MEDICARE ANNUAL CHI [...] 00:00:00 examination Medical Center (regime/therapy) [code = 275798814] Future Scheduled 1958 Urine screening [facility] - Test 00:00:00 protein (procedure) Medical Center [code = 469975251] Future Scheduled 1960 DIABETIC EYE EXAM [facility] - Test 00:00:00 [code = DIABETIC EYE Medical Center EXAM] Future Scheduled [address] [facility] - Test 00:00:00 examination Medical Center (regime/therapy) [code = 551474884] Future Scheduled 1958 Urine screening [facility] - Test 00:00:00 protein (procedure) Medical Center [code = 296351918] Future Scheduled 1960 DIABETIC EYE EXAM [facility] - Test 00:00:00 [code = DIABETIC EYE Medical Center EXAM] Future Scheduled [address] [facility] - Test 00:00:00 examination Medical Center (regime/therapy) [code = 236546641] Future Scheduled 1958 Urine screening [facility] - Test 00:00:00 protein (procedure) Medical Center [code = 880204461] Future Scheduled 1960 DIABETIC EYE EXAM [facility] - Test 00:00:00 [code = DIABETIC EYE Medical Center EXAM] Future Scheduled [address] [facility] - Test 00:00:00 examination Medical Center (regime/therapy) [code = 046413836] Future Scheduled 1958 Urine screening [facility] - Test 00:00:00 protein (procedure) Medical Center [code = 833693813] Future Scheduled [address] [facility] - Test 00:00:00 malignant neoplasm of Medica l Center breast (procedure) [code = 842043620] Future Scheduled [address] [facility] - Test 00:00:00 malignant neoplasm of Medica l Center colon (procedure) [code = 217118449] Future Scheduled [address] [facility] - Test 00:00:00 malignant neoplasm of Medica l Center breast (procedure) [code = 344031073] Future Scheduled [address] [facility] - Test 00:00:00 malignant neoplasm of Medica l Center colon (procedure) [code = 560129670] Future Scheduled [address] [facility] - Test 00:00:00 malignant neoplasm of Medica l Center breast (procedure) [code = 459043091] Future Scheduled [address] [facility] - Test 00:00:00 malignant neoplasm of Medica l Center colon (procedure) [code = 711937780] Future Scheduled [address] [facility] - Test 00:00:00 malignant neoplasm of Medica l Center breast (procedure) [code = 305991263] Future Scheduled [address] [facility] - Test 00:00:00 malignant neoplasm of Medica l Center colon (procedure) [code = 926890744] Encounters Start End Encounter Admission Attending Care Care Encounter Source Date/Time Date/Time Type Type Clinicians Facility Department ID 2021-06-21 Inpatient ER ADIO, [facility] [id number] [facility] 02:39:12 TITILOLA 2021-08-10 2021-08-10 Outpatient MCKAY SUYAPA [facility] [id number] [facility] 10:38:01 17:18:04 LEV Woodard e of Medicin e 2021-07-24 2021-07-24 Emergency X [facility]U [facility] ERT [id number] Univers 10:12:00 14:31:00 GLENN itwolf of [facility] 2021-07-24 2021-07-[address] [facility] [id number] Univers 10:12:00 14:31:00 Glenn DONATO [id number] i ty of [place] [id number] [facility] [id number] [facility] 084 Branch 2021-07-24 2021-07-24 Orders Doctor HEAVEN [id number] [facility] 00:00:00 00:00:00 Only Unassigned, ARIS [id number] ity of [place] [facility] [id number] [facility] [id number] [facility] 009 Branch 2021-05-04 2021-05-07 [facility] Cherie Faustin [facility] [id number] 17:37:00 10:59:00 [facility] 2021-05-06 2021-05-06 Anesthesia Denise Quispe [facility] [id number] 15:10:00 16:27:[address] [facility] 2021-05-06 2021-05-06 Surgery Nikita [facility] [id number] 13:00:00 14:30:00 [facility] 2021-05-05 2021-05-05 Travel [facility] [id number] [facility]:00 [facility] 2021-05-04 2021-05-04 Outpatient [facility] [id number] [facility] 00:00:00 23:59:00 Aidang e of Medicin e 2021-05-042021-05-04 Emergency ER [facility] Emergency [id number] SLE 17:24:00 17:24:00 2021-05-04 2021-05-04 Orders [facility] [id number] 00:00:00 00:00:[address] [facility] 2021-05-04 2021-05-04 Travel [facility] [id number] [facility] 00[facility]00 [facility] 2021-05-01 2021-05-01 [id number] 16:21:00 22:56:00 [facility] [facility] 2021-03-13 2021-03-13 Telephone Ezequiel, [facility] [id number] [facility] [address] 00:00:00 00:00:[address] [facility] 2021-03-08 2021-03-11 Hospital ER Curtis BurnettKenrick [facility] [id number] [facility] [address] 23:13:00 11:35:00 Encounter Bret Schuster [facility] 2021-03-10 2021-03-10 Surgery Kathy [facility] [id number] [facility] [address] 11:00:00 12:30:00 [facility] 2021-03-10 2021-03-10 Anesthesia Josef [facility] [id number] [facility] 11:36:00 12:27:00 Event Graciela Colón [facility] 2018-02-01 2018-02-01 Appointmen BRENDAN OSORIO Neurology [id number] 08:00:00 08:00:00 t; HOLLIE OSORIO [facility] [place], M.D. [place] M.D. Physici ans Results Test Description Test Time Test Comments Results Result Comments Source COMP. METABOLIC PANEL (21596) 2021-07-24 17:14:29 Test Item Value Reference Range Interpretation Comme nts NA (test code = 4357268435) 139 mmol/L 135-145 K (test code = 8798847078) 4.3 mmol/L 3.5-5.0 CL (test code = 3485995823) 104 mmol/L 98-108 CO2 TOTAL (test code = 1307275202) 24 mmol/L 23-31 AGAP (test code = 7654975811) 2-16 BUN (test code = 3166844013) 18 mg/dL 7-23 GLUCOSE (test code = 7293964657) 104 mg/dL 70-110 CREATININE (test code = 1.39 mg/dL 0.50-1.04 H 3059098636) TOTAL BILI (test code = 0.4 mg/dL 0.1-1.7 7069184107) CALCIUM (test code = 8224461775) 9.6 mg/dL 8.6-10.6 T PROTEIN (test code = 7278203320) 8.4 g/dL 6.3-8.2 H ALBUMIN (test code = 7110015143) 4.6 g/dL 3.5-5.0 ALK PHOS (test code = 0284579400) 93 U/L 34-122 ALTv (test code = 1742-6) 44 U/L 5-35 H AST(SGOT) (test code = 5247139469) 48 U/L 13-40 H eGFR (test code = 0635560015) mL/min/1.73m2 TORRES (test code = TORRES) Association of Glomerular Filtration Rate (GFR) and Staging of Kidney Disease* + +-------- + ------+| GFR (mL/min/1.73 m2) ?| With Kidney Damage ?| ?Without Kidney Damage+ +-- + +| ?>90 ?| ?Stage one ?| ? Normal ?+ +------- + -------+| ?60-89 ?| ?Stage two ?| ? Decreased GFR ? + +-------- + ------+| ?30-59 ?| ?Stage three ?| ? Stage three ? + +-------- + ------+| ?15-29 ?| ?Stage four ? | ? Stage four ?+ +------- + -------+| ?<15 (or dialysis) ? ?| ?Stage five ? | ? Stage five ?+ +------- + -------+ *Each stage assumes the associated GFR level has been in effect for at least three months. ?Stages 1 to 5, with or without kidney disease, indicate chronic kidney disease. Notes: Determination of stages one and two (with eGFR >59mL/min/1.73 m2) requires estimation of kidney damage for at least three months as defined by structural or functional abnormalities of the kidney, manifested by either:Pathological abnormalities or Markers of kidney damage (including abnormalities in the composition of the blood or urine or abnormalities in imaging tests). Lab Interpretation (test code = Abnormal 57847-3) [facility] 17:13:49 Test Item Value Reference Range Interpretation Comments LIPASE (test code = 6490763091) 266 U/L 0-220 H Lab Interpretation (test code = Abnormal 43438-8) [facility] WITH [id number] 17:03:27 Test Item Value Reference Range Interpretation Comments WBC (test code = See_Comment [Automated 8290-2) message] The sy stem which generated this result transmitted reference range : 4.30 - 11.10 10*3/?L. The reference range was not used to interpret this result as normal/abnormal . RBC (test code = See_Comment [Automated 099-8) message] The sy stem which generated this result transmitted reference range : 3.93 - 5.25 10*6/?L. The reference range was not used to interpret this result as normal/abnormal . HGB (test code = 11.9 g/dL 11.6-15.0 718-7) HCT (test code = 37.5 % 35.7-45.2 4544-3) MCV (test code = 94.9 fL 80.6-95.5 787-2) MCH (test code = 30.1 pg 25.9-32.8 785-6) MCHC (test code = 31.7 g/dL 31.6-35.1 786-4) RDW-SD (test code = 48.4 fL 39.0-49.9 62182-6) RDW-CV (test code = 13.8 % 12.0-15.5 788-0) PLT (test code = See_Comment [Automated 657-3) message] The sy stem which generated this result transmitted reference range : 166 - 358 10*3/ ?L. The reference r becca was not used to interpret this result as normal/abnormal . MPV (test code = 9.1 fL 9.5-12.9 L 33698-1) NRBC/100 WBC (test See_Comment [Automat ed code = 5431749111) message] The system which generated this result transmitted reference range : 0.0 - 10.0 /100 WBCs. The refer ence range was not u sed to interpret th is result as normal/abnormal . NRBC x10^3 (test code <0.01 See_Comment [Auto mated = 4587261045) message] The s ystem which generated this result transmitted reference range : 10*3/?L. The reference range was not used to interpret this result as normal/abnormal . GRAN MAT (NEUT) % 64.8 % (test code = 770-8) IMM GRAN % (test code 0.90 % = 2386862011) LYMPH % (test code = 24.2 % 736-9) MONO % (test code = 8.2 % 5905-5) EOS % (test code = 1.4 % 713-8) BASO % (test code = 0.5 % 706-2) GRAN MAT x10^3(ANC) 5.59 10*3/uL 1.88-7.09 (test code = 4664390711) IMM GRAN x10^3 (test 0.08 10*3/uL 0.00-0.06 H code = 9940565603) LYMPH x10^3 (test code 2.09 10*3/uL 1.32-3.29 = 731-0) MONO x10^3 (test code 0.71 10*3/uL 0.33-0.92 = 742-7) EOS x10^3 (test code = 0.12 10*3/uL 0.03-0.39 711-2) BASO x10^3 (test code 0.04 10*3/uL 0.01-0.07 = 704-7) Lab Interpretation Abnormal (test code = 29405-6) [facility] [id number] 07:08:00 Test Item Value Reference Range Interpretation Comments Sodium (test code = 139 meq/L 099-815 3438-2) Potassium (test 4.1 meq/L 3.5-5.1 code = 2823-3) Chloride (test code 107 meq/L 98-107 = 2075-0) CO2 (test code = 25 meq/L -29 2027-) BUN (test code = 13 mg/dL 7-21 3094-0) Creatinine (test 0.97 mg/dL 0.57-1.25 code = 2160-0) Glucose (test code 80 mg/dL 70-105 = 2345-7) Calcium (test code 8.9 mg/dL 8.4-10.2 = 52862-4) EGFR (test code = 56 mL/min/1.[address] [place] [address]-8) NOT ACCURATE CREATININE CLEARANCE IN PREDICTING GLOMERULAR FILTRATION RATE . ESTIMATED GFR I S NOT APPLICABLE FOR DIALYSIS PATIEN TORRES (test code = Pig Caster ID - TORRES) TOÑITO Camacho [facility] [id number] 07:08:00 Test Item Value Reference Range Interpretation Comments Protein, Total (test 6.9 See_Comment [Autom ated code = 2885-2) message] The system which generated this result transmit lane reference range : 6.0 - 8.3 gm/dL . The reference range was not u sed to interpret th is result as normal/abnormal . Albumin (test code = 3.6 g/dL 3.5-5 29176-8) Total Bilirubin (test 0.3 mg/dL 0.2-1.2 code = 1975-2) Bilirubin, Direct 0.2 mg/dL 0.1-0.5 (test code = 1967-7) Alkaline Phosphatase 56 U/L 40-150 (test code = 6768-6) AST (test code = 37 U/L 5-34 H 1920-8) ALT (test code = 50 U/L 6-55 1742-6) TORRES (test code = TORRES) Pig Caster ID - TOÑITO Camacho Lab Interpretation Abnormal (test code = 26119-9) [facility] [id number] 07:08:00 Test Item Value Reference Range Interpretation Comments Sodium (test code = 139 meq/L 138-752 4941-2) Potassium (test 4.1 meq/L 3.5-5.1 code = 2823-3) Chloride (test code 107 meq/L 98-107 = 2075-0) CO2 (test code = 25 meq/L 22-29 2027-9) BUN (test code = 13 mg/dL 7-21 3094-0) Creatinine (test 0.97 mg/dL 0.57-1.25 code = 2160-0) Glucose (test code 80 mg/dL 70-105 = 2345-7) Calcium (test code 8.9 mg/dL 8.4-10.2 = 04784-9) EGFR (test code = 56 mL/min/1.[address] [place] [address]-4) NOT ACCURATE CREATININE CLEARANCE IN PREDICTING GLOMERULAR FILTRATION RATE . ESTIMATED GFR I S NOT APPLICABLE FOR DIALYSIS PATIEN TORRES (test code = Pig Caster ID - TORRES) TOÑITO Camacho [facility] [id number] 07:08:00 Test Item Value Reference Range Interpretation Comments Protein, Total (test 6.9 See_Comment [Autom ated code = 2885-2) message] The system which generated this result transmit lane reference range : 6.0 - 8.3 gm/dL . The reference range was not u sed to interpret th is result as normal/abnormal . Albumin (test code = 3.6 g/dL 3.5-5 07643-9) Total Bilirubin (test 0.3 mg/dL 0.2-1.2 code = 1974-2) Bilirubin, Direct 0.2 mg/dL 0.1-0.5 (test code = 1968-7) Alkaline Phosphatase 56 U/L 40-150 (test code = 6768-6) AST (test code = 37 U/L 5-34 H 1920-8) ALT (test code = 50 U/L 6-55 1742-6) TORRES (test code = TORRES) Pig Caster ID - TOÑITO Camacho Lab Interpretation Abnormal (test code = 70545-8) [facility] [id number] 07:08:00 Test Item Value Reference Range Interpretation Comments Sodium (test code = 139 meq/L 009-319 4486-2) Potassium (test 4.1 meq/L 3.5-5.1 code = 2823-3) Chloride (test code 107 meq/L 98-107 = 2075-0) CO2 (test code = 25 meq/L -2028-05) BUN (test code = 13 mg/dL 7-21 3094-0) Creatinine (test 0.97 mg/dL 0.57-1.25 code = 2160-0) Glucose (test code 80 mg/dL 70-105 = 2345-7) Calcium (test code 8.9 mg/dL 8.4-10.2 = 73453-1) EGFR (test code = 56 mL/min/1.[address] [place] [address]-6) NOT ACCURATE CREATININE CLEARANCE IN PREDICTING GLOMERULAR FILTRATION RATE . ESTIMATED GFR I S NOT APPLICABLE FOR DIALYSIS PATIEN TORRES (test code = Pig Caster ID - TORRES) TOÑITO Camacho [facility] [id number] 07:08:00 Test Item Value Reference Range Interpretation Comments Protein, Total (test 6.9 See_Comment [Autom ated code = 2885-2) message] The system which generated this result transmit lane reference range : 6.0 - 8.3 gm/dL . The reference range was not u sed to interpret th is result as normal/abnormal . Albumin (test code = 3.6 g/dL 3.5-5 14955-1) Total Bilirubin (test 0.3 mg/dL 0.2-1.2 code = 1974-2) Bilirubin, Direct 0.2 mg/dL 0.1-0.5 (test code = 1967-7) Alkaline Phosphatase 56 U/L 40-150 (test code = 6768-6) AST (test code = 37 U/L 5-34 H 192-8) ALT (test code = 50 U/L 6-55 1742-6) TORRES (test code = TORRES) Pig Caster ID - TOÑITO Camacho Lab Interpretation Abnormal (test code = 96359-8) [facility] [id number] 07:08:00 Test Item Value Reference Range Interpretation Comments Sodium (test code = 139 meq/L 386-723 3340-2) Potassium (test 4.1 meq/L 3.5-5.1 code = 2823-3) Chloride (test code 107 meq/L 98-107 = 2075-0) CO2 (test code = 25 meq/L -2028-05) BUN (test code = 13 mg/dL 7-21 3094-0) Creatinine (test 0.97 mg/dL 0.57-1.25 code = 2160-0) Glucose (test code 80 mg/dL 70-105 = 2345-7) Calcium (test code 8.9 mg/dL 8.4-10.2 = 89332-9) EGFR (test code = 56 mL/min/1.[address] [place] [address]-2) NOT ACCURATE CREATININE CLEARANCE IN PREDICTING GLOMERULAR FILTRATION RATE . ESTIMATED GFR I S NOT APPLICABLE FOR DIALYSIS PATIEN TORRES (test code = Pig Caster ID - TORRES) TOÑITO Camacho [facility] [id number] 07:08:00 Test Item Value Reference Range Interpretation Comments Protein, Total (test 6.9 See_Comment [Autom ated code = 2885-2) message] The system which generated this result transmit lane reference range : 6.0 - 8.3 gm/dL . The reference range was not u sed to interpret th is result as normal/abnormal . Albumin (test code = 3.6 g/dL 3.5-5 57159-0) Total Bilirubin (test 0.3 mg/dL 0.2-1.2 code = 1974-2) Bilirubin, Direct 0.2 mg/dL 0.1-0.5 (test code = 1967-7) Alkaline Phosphatase 56 U/L 40-150 (test code = 6768-6) AST (test code = 37 U/L 5-34 H 1920-8) ALT (test code = 50 U/L 6-55 1742-6) TORRES (test code = TORRES) Pig Caster ID - TOÑITO Doug Lab Interpretation Abnormal (test code = 84607-0) [facility]OLIC [id number] 07:08:00 Test Item Value Reference Range Interpretation [...] S NOT APPLICABLE FOR DIALYSIS PATIEN TS. Pig Caster ID - PIAYA LHEPATIC FUNCTION [id number] 07:08:00 Test Item Value Reference Range Interpretation [...] (test code = 50 U/L 6-55 347) Pig Caster ID - TOÑITO LCBC with platelet count + automated [id number] 06:01:00 Test Item Value Reference Range Interpretation Comments WBC (test code = 6690-2) 7.9 See_Comment [A utomated message] The system iWatt generated this result transmitted ref erence range: 3.5 - 10 .5 K/L. The refe rence range was not u sed to interpret this result as normal/abnor mal. RBC (test code = 789-8) 3.22 See_Comment L [Au tomated message] The system iWatt generated this result transmitted ref erence range: 3.93 - 5 .22 M/L. The refe rence range was not u sed to interpret this result as normal/abnor mal. MCHC (test code = 786-4) 31.8 See_Comment L [A utomated message] The system iWatt generated this result transmitted ref erence range: [...] See_Comment [Aut omated message] 777-3) The system iWatt generated this result transmitted ref erence range: 150 - 45 0 K/CU MM. The referen ce range was not u sed to interpret this result as normal/abnor mal. MPV (test code = 8.9 fL 9.4-12.3 L 12216-7) nRBC (test code = 413) 0 See_Comment [Aut omated message] The system iWatt generated this result transmitted ref erence range: [...] See_Comment [Aut omated message] 670) The system iWatt generated this result transmitted ref erence range: 1.56 - 6 .13 K/L. The refe rence range was not u sed to interpret this result as normal/abnor mal. # Lymphs (test code = 2.20 See_Comment [Auto mated message] 414) The system iWatt generated this result transmitted ref erence range: 1.18 - 3 .74 K/L. The refe rence range was not u sed to interpret this result as normal/abnor mal. # Monos (test code = 0.54 See_Comment H [Autom ated message] 415) The system iWatt generated this result transmitted ref erence range: 0.24 - 0 .36 K/L. The refe rence range was not u sed to interpret this result as normal/abnor mal. # Eos (test code = 416) 0.08 See_Comment [Au tomated message] The system iWatt generated this result transmitted ref erence range: 0.04 - 0 .36 K/L. The refe rence range was not u sed to interpret this result as normal/abnor mal. # Baso (test code = 417) 0.03 See_Comment [A utomated message] The system iWatt generated this result transmitted ref erence range: 0.01 - 0 .08 K/L. The refe rence range was not u sed to interpret this result as normal/abnor mal. Immature 0 % 0-1 Granulocytes-Relative (test code = 2801) Lab Interpretation (test Abnormal code = 81499-1) [facility] with platelet count + automated [id number] 06:01:00 Test Item Value Reference Range Interpretation Comments WBC (test code = 6690-2) 7.9 See_Comment [A utomated message] The system iWatt generated this result transmitted ref erence range: 3.5 - 10 .5 K/L. The refe rence range was not u sed to interpret this result as normal/abnor mal. RBC (test code = 789-8) 3.22 See_Comment L [Au tomated message] The system iWatt generated this result transmitted ref erence range: 3.93 - 5 .22 M/L. The refe rence range was not u sed to interpret this result as normal/abnor mal. MCHC (test code = 786-4) 31.8 See_Comment L [A utomated message] The system iWatt generated this result transmitted ref erence range: [...] See_Comment [Aut omated message] 777-3) The system iWatt generated this result transmitted ref erence range: 150 - 45 0 K/CU MM. The referen ce range was not u sed to interpret this result as normal/abnor mal. MPV (test code = 8.9 fL 9.4-12.3 L 85572-8) nRBC (test code = 413) 0 See_Comment [Aut omated message] The system iWatt generated this result transmitted ref erence range: [...] See_Comment [Aut omated message] 670) The system iWatt generated this result transmitted ref erence range: 1.56 - 6 .13 K/L. The refe rence range was not u sed to interpret this result as normal/abnor mal. # Lymphs (test code = 2.20 See_Comment [Auto mated message] 414) The system iW[employer] generated this result transmitted ref erence range: 1.18 - 3 .74 K/L. The refe rence range was not u sed to interpret this result as normal/abnor mal. # Monos (test code = 0.54 See_Comment H [Autom ated message] 415) The system i[employer] generated this result transmitted ref erence range: 0.24 - 0 .36 K/L. The refe rence range was not u sed to interpret this result as normal/abnor mal. # Eos (test code = 416) 0.08 See_Comment [Au tomated message] The system iW[employer] generated this result transmitted ref erence range: 0.04 - 0 .36 K/L. The refe rence range was not u sed to interpret this result as normal/abnor mal. # Baso (test code = 417) 0.03 See_Comment [A utomated message] The system iWatt generated this result transmitted ref erence range: 0.01 - 0 .08 K/L. The refe rence range was not u sed to interpret this result as normal/abnor mal. Immature 0 % 0-1 Granulocytes-Relative (test code = 2801) Lab Interpretation (test Abnormal code = 45300-5) [facility] with platelet count + automated [id number] 06:01:00 Test Item Value Reference Range Interpretation Comments WBC (test code = 6690-2) 7.9 See_Comment [A utomated message] The system iWatt generated this result transmitted ref erence range: 3.5 - 10 .5 K/L. The refe rence range was not u sed to interpret this result as normal/abnor mal. RBC (test code = 789-8) 3.22 See_Comment L [Au tomated message] The system iWatt generated this result transmitted ref erence range: 3.93 - 5 .22 M/L. The refe rence range was not u sed to interpret this result as normal/abnor mal. MCHC (test code = 786-4) 31.8 See_Comment L [A utomated message] The system iWatt generated this result transmitted ref erence range: [...] code = 282 See_Comment [Aut omated message] 657-3) The system iW[employer] generated this result transmitted ref erence range: 150 - 45 0 K/CU MM. The referen ce range was not u sed to interpret this result as normal/abnor mal. MPV (test code = 8.9 fL 9.4-12.3 L 42797-7) nRBC (test code = 413) 0 See_Comment [Aut omated message] The system iWatt generated this result transmitted ref erence range: [...] See_Comment [Aut omated message] 670) The system i[employer] generated this result transmitted ref erence range: 1.56 - 6 .13 K/L. The refe rence range was not u sed to interpret this result as normal/abnor mal. # Lymphs (test code = 2.20 See_Comment [Auto mated message] 414) The system iWatt generated this result transmitted ref erence range: 1.18 - 3 .74 K/L. The refe rence range was not u sed to interpret this result as normal/abnor mal. # Monos (test code = 0.54 See_Comment H [Autom ated message] 415) The system iW[employer] generated this result transmitted ref erence range: 0.24 - 0 .36 K/L. The refe rence range was not u sed to interpret this result as normal/abnor mal. # Eos (test code = 416) 0.08 See_Comment [Au tomated message] The system iWatt generated this result transmitted ref erence range: 0.04 - 0 .36 K/L. The refe rence range was not u sed to interpret this result as normal/abnor mal. # Baso (test code = 417) 0.03 See_Comment [A utomated message] The system iWatt generated this result transmitted ref erence range: 0.01 - 0 .08 K/L. The refe rence range was not u sed to interpret this result as normal/abnor mal. Immature 0 % 0-1 Granulocytes-Relative (test code = 2801) Lab Interpretation (test Abnormal code = 22337-5) [facility] with platelet count + automated [id number] 06:01:00 Test Item Value Reference Range Interpretation Comments WBC (test code = 6690-2) 7.9 See_Comment [A utomated message] The system iWatt generated this result transmitted ref erence range: 3.5 - 10 .5 K/L. The refe rence range was not u sed to interpret this result as normal/abnor mal. RBC (test code = 789-8) 3.22 See_Comment L [Au tomated message] The system iWatt generated this result transmitted ref erence range: 3.93 - 5 .22 M/L. The refe rence range was not u sed to interpret this result as normal/abnor mal. MCHC (test code = 786-4) 31.8 See_Comment L [A utomated message] The system iWatt generated this result transmitted ref erence range: [...] See_Comment [Aut omated message] 777-3) The system iWatt generated this result transmitted ref erence range: 150 - 45 0 K/CU MM. The referen ce range was not u sed to interpret this result as normal/abnor mal. MPV (test code = 8.9 fL 9.4-12.3 L 75753-1) nRBC (test code = 413) 0 See_Comment [Aut omated message] The system iWatt generated this result transmitted ref erence range: [...] See_Comment [Aut omated message] 670) The system iWatt generated this result transmitted ref erence range: 1.56 - 6 .13 K/L. The refe rence range was not u sed to interpret this result as normal/abnor mal. # Lymphs (test code = 2.20 See_Comment [Auto mated message] 414) The system iW[employer] generated this result transmitted ref erence range: 1.18 - 3 .74 K/L. The refe rence range was not u sed to interpret this result as normal/abnor mal. # Monos (test code = 0.54 See_Comment H [Autom ated message] 415) The system iWatt generated this result transmitted ref erence range: 0.24 - 0 .36 K/L. The refe rence range was not u sed to interpret this result as normal/abnor mal. # Eos (test code = 416) 0.08 See_Comment [Au tomated message] The system iWatt generated this result transmitted ref erence range: 0.04 - 0 .36 K/L. The refe rence range was not u sed to interpret this result as normal/abnor mal. # Baso (test code = 417) 0.03 See_Comment [A utomated message] The system iWatt generated this result transmitted ref erence range: 0.01 - 0 .08 K/L. The refe rence range was not u sed to interpret this result as normal/abnor mal. Immature 0 % 0-1 Granulocytes-Relative (test code = 2801) Lab Interpretation (test Abnormal code = 05788-3) [facility] W/PLT COUNT & AUTO [id number] 06:01:00 Test Item Value Reference Range Interpretation [...] (BEAKER) (test code = 2801) ECG 12 [id number] 06:47:19Interface, External Ris In - 05/05/2021 6:47 AM CDTVentricular Rate 91 BPMAtrial Rate 91 BPMP-R Interval 126 msQRS Duration 78 msQ-T Interval 352 msQTC Calculation(Bazett) 432 msP [place] 44 degreesR [place] 28 degreesT [place] 39 degreesNormal sinus rhythmNormal ECGNo previous ECGs availableConfirmed by MD BELLAMY JOSEPH P ([id number]) on 05/05/2021 6:47:15 [facility] 12 [id number] 06:47:19Interface, External Ris In - 05/05/2021 6:47 AM CDTVentricular Rate 91 BPMAtrial Rate 91 BPMP-R Inte rval 126 msQRS Duration 78 msQ-T Interval 352 msQTC Calculation(Bazett) 432 msP [place] 44 degreesR [place] 28 degreesT [place] 39 degreesNormal sinus rhythmNormal ECGNo previous ECGs availableConfirmed by MD BELLAMY JOSEPH P ([id number]) on 05/05/2021 6:47:15 [place] [address] [id number] 06:47:19Interface, External Ris In - 05/05/2021 6:47 AM CDTVentricular Rate 91 BPMAtrial Rate 91 BPMP-R Interval 126 msQRS Duration 78 msQ-T Interval 352 msQTC Calculation(Bazett) 432 msP [place] 44 degreesR [place] 28 degreesT [place] 39 degreesNormal sinus rhythmNormal ECGNo previous ECGs availableConfirmed by OKSANA LANDRUM MD, JOSEPH P ([id number]) on 05/05/2021 6:47:15 [facility] 12 [id number] 06:47:19Interface, External Ris In - 05/05/2021 6:47 AM CDTVentricular Rate 91 BPMAtrial Rate 91 BPMP-R Interval 126 msQRS Duration 78 msQ-T Interval 352 msQTC Calculation(Bazett) 432 msP [place] 44 degreesR [place] 28 degreesT [place] 39 degreesNormal sinus rhythmNormal ECGNo previous ECGs availableConfirmed by MD BELLAMY JOSEPH P ([id number]) on 05/05/2021 6:47:15 [facility], [id number] 06:17:00 Test Item Value Reference Range Interpretation Comments ABO Grouping (test code = 2588) O Rh Factor (test code = 2589) POS [facility], [id number] 06:17:00 Test Item Value Reference Range Interpretation Comments ABO Grouping (test code = 2588) O Rh Factor (test code = 2589) POS [facility], [id number] 06:17:00 Test Item Value Reference Range Interpretation Comments ABO Grouping (test code = 2588) O Rh Factor (test code = 2589) POS [facility], [id number] 06:17:00 Test Item Value Reference Range Interpretation Comments ABO Grouping (test code = 2588) O Rh Factor (test code = 2589) [facility] ([facility] and [facility] only) 2021-05-05 05:01:00 Test Item Value Reference Range Interpretation Comments ABO/RH AUTOMATED (BEAKER) (test O POSITIVE code = 2260) Ab Scrn (test code = 890-4) NEGATIVE [facility] ([facility] only) 2021-05-05 05:01:00 Test Item Value Reference Range Interpretation Comments ABO/RH AUTOMATED (BEAKER) (test O POSITIVE code = 2260) Ab Scrn (test code = 890-4) NEGATIVE [facility] ([facility] only) 2021-05-05 05:01:00 Test Item Value Reference Range Interpretation Comments ABO/RH AUTOMATED (BEAKER) (test O POSITIVE code = 2260) Ab Scrn (test code = 890-4) NEGATIVE [facility] ([facility] only) 2021-05-05 05:01:00 Test Item Value Reference Range Interpretation Comments ABO/RH AUTOMATED (BEAKER) (test O POSITIVE code = 2260) Ab Scrn (test code = 890-4) NEGATIVE [facility]PT/[id number] 04:35:00 Test Item Value Reference Interpretation Comments Range Protime (test code = 13.7 See_Comment [Autom ated 5902-2) message] The system which generated this result transmitted reference range : 11.9 - 14.2 seconds. The reference range was not used to interpret this result as normal/abnormal . INR (test code = 1.07 See_Comment [Automated 6301-6) message] The system which [...] valves. Lab Interpretation Normal (test code = 90407-3) [facility]/[id number] 04:35:00 Test Item Value Reference Interpretation Comments Range Protime (test code = 13.7 See_Comment [Autom ated 5902-2) message] The system which generated this result transmitted reference range : 11.9 - 14.2 seconds. The reference range was not used to interpret this result as normal/abnormal . INR (test code = 1.07 See_Comment [Automated 6301-6) message] The system which [...] valves. Lab Interpretation Normal (test code = 38527-1) [facility]/[id number] 04:35:00 Test Item Value Reference Interpretation Comments Range Protime (test code = 13.7 See_Comment [Autom ated 5902-2) message] The system which generated this result transmitted reference range : 11.9 - 14.2 seconds. The reference range was not used to interpret this result as normal/abnormal . INR (test code = 1.07 See_Comment [Automated 6301-6) message] The system which [...] valves. Lab Interpretation Normal (test code = 00833-4) [facility]PT/[id number] 04:35:00 Test Item Value Reference Interpretation Comments Range Protime (test code = 13.7 See_Comment [Autom ated 5902-2) message] The system which generated this result transmitted reference range : 11.9 - 14.2 seconds. The reference range was not used to interpret this result as normal/abnormal . INR (test code = 1.07 See_Comment [Automated 4961-6) message] The system which generated this result [...] valves. Lab Interpretation Normal (test code = 84095-9) [facility] HospitalPROTHROMBIN TIME/[id number] 04:35:00 Test Item Value Reference Range Interpretation Comments PROTIME (BEAKER) 13.7 seconds 11.9-14.2 (test code = 759) INR (BEAKER) (test 1.07 See_Comment [Automat ed message] code = 370) The system [employer] generated this result transmitted ref erence range: <=5.90. The reference range was not used to int erpret this result as normal/abnormal . RECOMMENDED COUMADIN/WARFARIN INR THERAPY RANGESSTANDARD DOSE: 2.0 - 3.0 Includes: PROPHYLAXIS forvenous thrombosis, systemic embolization; TREATMENT for venous thrombosis and/or pulmonary embolus.HIGH RISK: Target INR is 2.5-3.5 for patients with mechanical heart valves.High Sensitivity Troponin [id number] 01:56:00 Test Item Value Reference Range Interpretation Comments Troponin I HS <4 See_Comment [Automated (test code = message] The [employer]) system which generated this result transmitted reference range : <=17 pg/ml. The reference range was not used to interpret this result as normal/abnormal . TORRES (test code = Pig Caster ID - TORRES) DBThe SENIOR LOGISTICS MANAGER STAT High Sensitivity Troponin-I results should be used in conjunction with other diagnostic information such as ECG, clinical observations and information, and patient symptoms to aid in the diagnosis of MT. Lab Interpretation Normal (test code = 26113-9) [facility] Troponin [id number] 01:56:00 Test Item Value Reference Range Interpretation Comments Troponin I HS <4 See_Comment [Automated (test code = message] The [employer]) system which generated this result transmitted reference range : <=17 pg/ml. The reference range was not used to interpret this result as normal/abnormal . TORRES (test code = Pig Caster ID - TORRES) DBThe SENIOR LOGISTICS MANAGER STAT High Sensitivity Troponin-I results should be used in conjunction with other diagnostic information such as ECG, clinical observations and information, and patient symptoms to aid in the diagnosis of MT. Lab Interpretation Normal (test code = 49429-0) [facility] HospitalHigh Sensitivity Troponin [id number] 01:56:00 Test Item Value Reference Range Interpretation Comments Troponin I HS <4 See_Comment [Automated (test code = message] The 43430-5) system which generated this result transmitted reference range : <=17 pg/ml. The reference range was not used to interpret this result as normal/abnormal . TORRES (test code = Pig Caster ID - TORRES) DBThe SENIOR LOGISTICS MANAGER STAT High Sensitivity Troponin-I results should be used in conjunction with other diagnostic information such as ECG, clinical observations and information, and patient symptoms to aid in the diagnosis of MT. Lab Interpretation Normal (test code = 49350-7) [facility] Troponin [id number] 01:56:00 Test Item Value Reference Range Interpretation Comments Troponin I HS <4 See_Comment [Automated (test code = message] The 05704-2) system which generated this result transmitted reference range : <=17 pg/ml. The reference range was not used to interpret this result as normal/abnormal . TORRES (test code = Pig Caster ID - TORRES) DBThe SENIOR LOGISTICS MANAGER STAT High Sensitivity Troponin-I results should be used in conjunction with other diagnostic information such as ECG, clinical observations and information, and patient symptoms to aid in the diagnosis of MT. Lab Interpretation Normal (test code = 79845-4) [facility]ITIV[facility] TROPONIN [id number] 01:56:00 Test Item Value Reference Range Interpretation Comments HIGH SENSITIVITY < pg/ml See_Comment [Automated message] TROPONIN I (test code = The system which 5281158) generated this result transmitted ref erence range: <=17. Th e reference range was not used to interpr et this result as normal/abnormal . Pig Caster ID - DBThe SENIOR LOGISTICS MANAGER STAT High Sensitivity Troponin-I results should be used in conjunctionwith other diagnostic information such as ECG, clinical observations and information, and patient symptoms to aid in the diagnosis of MT.Ketones, [id number] 01:40:00 Test Item Value Reference Range Interpretation Comments Ketones, Blood (test code = 1103) 0.4 mmol/L <0.4 H Lab Interpretation (test code = Abnormal 79552-7) [facility], [id number] 01:40:00 Test Item Value Reference Range Interpretation Comments Ketones, Blood (test code = 1103) 0.4 mmol/L <0.4 H Lab Interpretation (test code = Abnormal 19296-8) [facility], [id number] 01:40:00 Test Item Value Reference Range Interpretation Comments Ketones, Blood (test code = 1103) 0.4 mmol/L <0.4 H Lab Interpretation (test code = Abnormal 86632-5) [facility] [id number] 01:40:00 Test Item Value Reference Range Interpretation Comments Ketones, Blood (test code = 1103) 0.4 mmol/L <0.4 H Lab Interpretation (test code = Abnormal 27746-7) [facility] [id number] 01:40:00 Test Item Value Reference Range Interpretation Comments KETONES, BLOOD (BEAKER) (test code 0.4 mmol/L <0.4 H = 1103) SARS-CoV2/RT-PCR (Asymptomatic ONLY)2021-05-05 01:30:00 Test Item Value Reference Interpretation Comments Range SARS-COV2/RT-PCR Negative Negative The SARS-Co V-2 (test code = target nucleic 49881-7) acids are not detected in thi s [...] revoked sooner. Fact Sheet for Healthcare Providers: https://www.EUDOWEB/Documents/Xp ert%20Xpress%20SAR S%20CoV-2/Fact%20S heets/302-3802%20S ARS-COV-2%20HEALTH CARE%20PROVIDERS%2 0FACT%20SHEET.pdf Fact Sheet for Healthcare Patients: https://www.EUDOWEB/Documents/Xp ert%20Xpress%20SAR S%20CoV-2/Fact%20S heets/302-3801%20S ARS-COV-2%20PATIEN T%20FACT%20SHEET.p df Lab Interpretation Normal (test code = 70745-6) [facility]2021-05-05 01:30:00 Test Item Value Reference Interpretation Comments Range SARS-COV2/RT-PCR Negative Negative The SARS-Co V-2 (test code = target nucleic 90193-4) acids are not detected in thi s [...] revoked sooner. Fact Sheet for Healthcare Providers: https://www.EUDOWEB/Documents/Xp ert%20Xpress%20SAR S%20CoV-2/Fact%20S heets/302-3802%20S ARS-COV-2%20HEALTH CARE%20PROVIDERS%2 0FACT%20SHEET.pdf Fact Sheet for Healthcare Patients: https://www.EUDOWEB/Documents/Xp ert%20Xpress%20SAR S%20CoV-2/Fact%20S heets/302-3801%20S ARS-COV-2%20PATIEN T%20FACT%20SHEET.p df Lab Interpretation Normal (test code = 25511-8) [facility]2021-05-05 01:30:00 Test Item Value Reference Interpretation Comments Range SARS-COV2/RT-PCR Negative Negative The SARS-Co V-2 (test code = target nucleic 67609-9) acids are not detected in thi s [...] revoked sooner. Fact Sheet for Healthcare Providers: https://www.EUDOWEB/Documents/Xp ert%20Xpress%20SAR S%20CoV-2/Fact%20S heets/302-3802%20S ARS-COV-2%20HEALTH CARE%20PROVIDERS%2 0FACT%20SHEET.pdf Fact Sheet for Healthcare Patients: https://www.EUDOWEB/Documents/Xp ert%20Xpress%20SAR S%20CoV-2/Fact%20S heets/302-3801%20S ARS-COV-2%20PATIEN T%20FACT%20SHEET.p df Lab Interpretation Normal (test code = 41385-8) [facility]2021-05-05 01:30:00 Test Item Value Reference Interpretation Comments Range SARS-COV2/RT-PCR Negative Negative The SARS-Co V-2 (test code = target nucleic 64688-4) acids are not detected in thi s [...] revoked sooner. Fact Sheet for Healthcare Providers: https://www.EUDOWEB/Documents/Xp ert%20Xpress%20SAR S%20CoV-2/Fact%20S heets/302-3802%20S ARS-COV-2%20HEALTH CARE%20PROVIDERS%2 0FACT%20SHEET.pdf Fact Sheet for Healthcare Patients: https://www.EUDOWEB/Documents/Xp ert%20Xpress%20SAR S%20CoV-2/Fact%20S heets/302-3801%20S ARS-COV-2%20PATIEN T%20FACT%20SHEET.p df Lab Interpretation Normal (test code = 59482-8) [facility])2021-05-05 01:30:00 Test Item Value Reference Range Interpretation Comments SARS-COV2/RT-PCR Negative Negative The SARS-Co V-2 target (test code = nucleic acids a re not 4785233) detected in thi s specimen. Negative result [...] revoked sooner. Fact Sheet for Healthcare Providers: https://www.Acusphere/Documents/Xpert%20Xpress%20SARS%20CoV-2/Fact%20Sheets/3023802%20SARS-COV -2%20HEALTHCARE%20PROVIDERS%20FACT%20SHEET.pdf Fact Sheet for Healthcare Patients: https://www.TAKO/Documents/Xpert %20Xpress%20SARS%20CoV-2/Fact%20Sheets/3023801%57ICNW-VQR-2%20PATIENT%20FACT%20 SHEET.pdfBlood gas, [id number] 01:22:00 Test Item Value Reference Range Interpretation [...] code = 59 See_Comment H [Auto mated 9195-2) message] The sy stem which generated this result transmitted reference range : 25 - 40 mm Hg. The reference range was not used to interpret this result as normal/abnormal . O2 Sat, Niranjan (test code 89.4 % 40-70 H = 2711-0) HCO3, Niranjan (test code = 21 mmol/L 21-29 48189-7) Base Excess, Niranjan (test -4.5 mmol/L -2-3 L code = 1927-3) Patient Temperature 37.0 (test code = 8310-5) FIO2 (test code = 1819) 21 Lab Interpretation Abnormal (test code = 97636-7) [facility], [id number] 01:22:00 Test Item Value Reference Range Interpretation [...] Niranjan (test code = 21 mmol/L 21-29 13840-9) Base Excess, Niranjan (test -4.5 mmol/L -2-3 L code = 1927-3) Patient Temperature 37.0 (test code = 8310-5) FIO2 (test code = 1819) 21 Lab Interpretation Abnormal (test code = 26346-9) [facility], [id number] 01:22:00 Test Item Value Reference Range Interpretation [...] Niranjan (test code = 21 mmol/L 21-29 29575-4) Base Excess, Niranjan (test -4.5 mmol/L -2-3 L code = 1927-3) Patient Temperature 37.0 (test code = 8310-5) FIO2 (test code = 1819) 21 Lab Interpretation Abnormal (test code = 45689-2) [facility] [id number] 01:22:00 Test Item Value Reference Range Interpretation [...] Niranjan (test code = 21 mmol/L 21-29 71150-9) Base Excess, Niranjan (test -4.5 mmol/L -2-3 L code = 1927-3) Patient Temperature 37.0 (test code = 8310-5) FIO2 (test code = 1819) 21 Lab Interpretation Abnormal (test code = 72418-2) [facility] GAS, [id number] 01:22:00 Test Item Value Reference Range Interpretation [...] (BEAKER) (test code = 1819) 21.0 ECG/EKG [id number] 23:15:Cherie Guerra MD 05/05/2021 2:11 AMECG/EKG Interpretation Date/Time: 05/04/2021 11:26 PMPerformed by: Cherie Faustin MDAuthorized by: Cherie Faustin MD The ECG was interpreted by ED physician. The ECG is interpreted as sinus rhythm. Rate is normal rate. Heart rate is 91 BPM.ST segments normal. T-wave inversion in lead(s) V1 and V2. Clinical Impression: normal [facility]CH[facility]EC[facility] [id number] 23:15:Cherie Guerra MD 05/05/2021 2:11 AMECG/EKG Interpretation Date/Time: 05/04/2021 11:26 PMPerformed by: Cherie Faustin MDAuthorized by: Cherie Faustin MD The ECG was interpreted by ED physician. The ECG is interpreted as sinus rhythm. Rate is normal rate. Heart rate is 91 BPM.ST segments normal. T-wave inversion in lead(s) V1 and V2. Clinical Impression: normal ECGCH[facility] CenterEC[facility]EKG [id number] 23:15:Cherie Guerra MD 05/05/2021 2:11 AMECG/EKG Interpretation Date/Time: 05/04/2021 11:26 PMPerformed by: Cherie Faustin MDAuthorized by: Cherie Faustin MD The ECG was interpreted by ED physician. The ECG is interpreted as sinus rhythm. Rate is normal rate. Heart rate is 91 BPM.ST segments normal. T-wave inversion in lead(s) V1 and V2. Clinical Impression: normal ECGCH[facility] CenterECG[facility]EKG Rzryalgrogmeei9435-31-21 23:15:Cherie Guerra MD 05/05/2021 2:11 AMECG/EKG Interpretation Date/Time: 05/04/2021 11:26 PMPerformed by: Cherie Faustin MDAuthorized by: Cherie Faustin MD The ECG was interpreted by ED physician. The ECG is interpreted as sinus rhythm. Rate is normal rate. Heart rate is 91 BPM.ST segments normal. T-wave inversion in lead(s) V1 and V2. Clinical Impression: normal ECGFremont [facility] HospitalHEPATIC FUNCTION [id number] 22:01:00 Test Item Value Reference Range Interpretation [...] Specimen moderately (test code = 347) hemolyzed Pig Caster ID - [id number] 21:53:00 Test Item Value Reference Range Interpretation Comments Amylase (test code = 143 U/L 25-125 H Specime n 1798-8) markedly hemolyzed TORRES (test code = TORRES) Pig Caster ID - DB Lab Interpretation Abnormal (test code = 48991-7) [facility] HospitalLipase2021-[facility] 21:53:00 Test Item Value Reference Range Interpretation Comments Lipase (test code = 3040-3) 97 U/L 8-78 H TORRES (test code = TORRES) Pig Caster ID - DB Lab Interpretation (test Abnormal code = 86903-7) [facility] HospitalAmylase2021-08-23 21:53:00 Test Item Value Reference Range Interpretation Comments Amylase (test code = 143 U/L 25-125 H Specime n 1798-8) markedly hemolyzed TORRES (test code = TORRES) Pig Caster ID - DB Lab Interpretation Abnormal (test code = 07622-9) [facility] HospitalLipase2021-08-23 21:53:00 Test Item Value Reference Range Interpretation Comments Lipase (test code = 3040-3) 97 U/L 8-78 H TORRES (test code = TORRES) Pig Caster ID - DB Lab Interpretation (test Abnormal code = 40102-9) [facility] HospitalAmylase2021-08-23 21:53:00 Test Item Value Reference Range Interpretation Comments Amylase (test code = 143 U/L 25-125 H Specime n 1798-8) markedly hemolyzed TORRES (test code = TORRES) Pig Caster ID - DB Lab Interpretation Abnormal (test code = 04334-1) [facility] HospitalLip[facility]2021-[facility]-23 21:53:00 Test Item Value Reference Range Interpretation Comments Lipase (test code = 3040-3) 97 U/L 8-78 H TORRES (test code = TORRES) Pig Caster ID - DB Lab Interpretation (test Abnormal code = 61337-1) [facility] HospitalAmylase2021-08-23 21:53:00 Test Item Value Reference Range Interpretation Comments Amylase (test code = 143 U/L 25-125 H Specime n 1798-8) markedly hemolyzed TORRES (test code = TORRES) Pig Caster ID - DB Lab Interpretation Abnormal (test code = 72583-7) [facility] Hospital[facility]ase2021-[facility]-23 21:53:00 Test Item Value Reference Range Interpretation Comments Lipase (test code = 3040-3) 97 U/L 8-78 H TORRES (test code = TORRES) Pig Caster ID - DB Lab Interpretation (test Abnormal code = 63884-3) [facility] HospitalBASIC METABOLIC [id number] 21:53:00 Test Item Value Reference Range Interpretation [...] S NOT APPLICABLE FOR DIALYSIS PATIEN TS. Pig Caster ID - [id number] 21:53:00 Test Item Value Reference Range Interpretation Comments AMYLASE (BEAKER) (test 143 U/L 25-125 H Speci men markedly code = 349) hemolyzed Pig Caster ID - [id number] 21:53:00 Test Item Value Reference Range Interpretation Comments LIPASE (BEAKER) (test code = 749) 97 U/L 8-78 H Pig Caster ID - DBCBC W/PLT COUNT & AUTO [id number] 19:51:00 Test Item Value Reference Range Interpretation [...] PERCENT (BEAKER) (test code = 2801) POC-Glucose [id number] 08:41:00 Test Item Value Reference Range Interpretation Comments POC-Glucose Meter (test 104 mg/dL 70-110 : TE STED AT [facility] code = 1538) [address] [place] [address], [facility] 30: Pig Caster/Techni aldo ID = [id number] for HUSSEIN LEMON Lab Interpretation (test Normal code = 63101-6) [facility]-Glucose [id number] 08:41:00 Test Item Value Reference Range Interpretation Comments POC-Glucose Meter (test 104 mg/dL 70-110 : TE STED AT [facility] code = 1538) [address] [place] [address], [address] 30: Pig Caster/Techni aldo ID = [id number] for HUSSEIN LEMON Lab Interpretation (test Normal code = 84261-5) [facility]-Glucose [id number] 08:41:00 Test Item Value Reference Range Interpretation Comments POC-Glucose Meter (test 104 mg/dL 70-110 : TE STED AT [facility] code = 1538) [address] [facility], [address] 30: Pig Caster/Techni aldo ID = [id number] for HUSSEIN LEMON Lab Interpretation (test Normal code = 15985-2) [facility]-Glucose [id number] 08:41:00 Test Item Value Reference Range Interpretation Comments POC-Glucose Meter (test 104 mg/dL 70-110 : TE STED AT [facility] code = 1538) [address] [facility], 7[address] 30: Pig Caster/Techni aldo ID = [id number] for HUSSEIN LEMON Lab Interpretation (test Normal code = 14380-2) [facility]-GLUCOSE [id number] 08:41:00 Test Item Value Reference Range Interpretation Comments POC-GLUCOSE METER 104 mg/dL 70-110 : TESTED A T [facility] [address] (BEAKER) (test code = [place] [facility], 1538) [address]: Pig Caster/Techni aldo ID = [id number] for HUSSEIN DAVID Comprehensive metabolic [id number] 06:49:00 Test Item Value Reference Range Interpretation Comments Protein, Total (test 6.8 See_Comment [Autom ated code = 2885-2) message] The system which generated this result transmit lane reference range : 6.0 - 8.3 gm/dL . The reference range was not u sed to interpret th is result as normal/abnormal . Albumin (test code = 3.5 g/dL 3.5-5 21147-5) Alkaline Phosphatase 44 U/L 40-150 (test code = 6768-6) Total Bilirubin (test 0.3 mg/dL 0.2-1.2 code = 1975-2) Sodium (test code = 139 meq/L 753-050 8107-2) Potassium (test code 3.8 meq/L 3.5-5.1 = 2823-3) Chloride (test code = 104 meq/L 98-107 2075-0) CO2 (test code = 27 meq/L 22-29 2027-9) BUN (test code = 12 mg/dL 7-21 3094-0) Creatinine (test code 1.05 mg/dL 0.57-1.25 = 2160-0) Glucose (test code = 79 mg/dL 70-105 2345-7) Calcium (test code = 8.4 mg/dL 8.4-10.2 53666-8) AST (test code = 49 U/L 5-34 H 1920-8) ALT (test code = 41 U/L 6-55 2-6) EGFR (test code = 52 mL/min/1.[address] [place] [address]-9) NOT ACCURATE CREATININE CLEARANCE IN PREDICTING GLOMERULAR FILTRATION RATE . ESTIMATED GFR I S NOT APPLICABLE FOR DIALYSIS PATIEN TS. TORRES (test code = TORRES) Pig Caster ID - HUMBLE Porter Lab Interpretation Abnormal (test code = 28058-9) [facility] HospitalComprehensive metabolic [id number] 06:49:00 Test Item Value Reference Range Interpretation Comments Protein, Total (test 6.8 See_Comment [Autom ated code = 2885-2) message] The system which generated this result transmit lane reference range : 6.0 - 8.3 gm/dL . The reference range was not u sed to interpret th is result as normal/abnormal . Albumin (test code = 3.5 g/dL 3.5-5 25206-2) Alkaline Phosphatase 44 U/L 40-150 (test code = 6768-6) Total Bilirubin (test 0.3 mg/dL 0.2-1.2 code = 1974-2) Sodium (test code = 139 meq/L 652-795 3623-2) Potassium (test code 3.8 meq/L 3.5-5.1 = 2823-3) Chloride (test code = 104 meq/L 98-107 5-0) CO2 (test code = 27 meq/L 22-29 2027-9) BUN (test code = 12 mg/dL 04-01 3094-0) Creatinine (test code 1.05 mg/dL 0.57-1.25 = 2160-0) Glucose (test code = 79 mg/dL 70-105 2345-7) Calcium (test code = 8.4 mg/dL 8.4-10.2 38990-2) AST (test code = 49 U/L 5-34 H 1920-8) ALT (test code = 41 U/L - 1742-6) EGFR (test code = 52 mL/min/1.[address] [place] [address]-7) NOT ACCURATE CREATININE CLEARANCE IN PREDICTING GLOMERULAR FILTRATION RATE . ESTIMATED GFR I S NOT APPLICABLE FOR DIALYSIS PATIEN TS. TORRES (test code = TORRES) Pig Caster ID - HUMBLE M Lab Interpretation Abnormal (test code = 32083-9) [facility]Com[facility] [id number] 06:49:00 Test Item Value Reference Range Interpretation Comments Protein, Total (test 6.8 See_Comment [Autom ated code = 2885-2) message] The system which generated this result transmit lane reference range : 6.0 - 8.3 gm/dL . The reference range was not u sed to interpret th is result as normal/abnormal . Albumin (test code = 3.5 g/dL 3.5-5 35283-1) Alkaline Phosphatase 44 U/L 40-150 (test code = 6768-6) Total Bilirubin (test 0.3 mg/dL 0.2-1.2 code = 1975-2) Sodium (test code = 139 meq/L 971-472 8183-2) Potassium (test code 3.8 meq/L 3.5-5.1 = 2823-3) Chloride (test code = 104 meq/L 98-107 2075-0) CO2 (test code = 27 meq/L 22-29 8-9) BUN (test code = 12 mg/dL 7-21 3094-0) Creatinine (test code 1.05 mg/dL 0.57-1.25 = 2160-0) Glucose (test code = 79 mg/dL 70-105 2345-7) Calcium (test code = 8.4 mg/dL 8.4-10.2 14682-8) AST (test code = 49 U/L 5-34 H 192-8) ALT (test code = 41 U/L 55 1742-6) EGFR (test code = 52 mL/min/1.[address] [place] [address]-0) NOT ACCURATE CREATININE CLEARANCE IN PREDICTING GLOMERULAR FILTRATION RATE . ESTIMATED GFR I S NOT APPLICABLE FOR DIALYSIS PATIEN TS. TORRES (test code = TORRES) Pig Caster ID - HUMBLE M Lab Interpretation Abnormal (test code = 90769-1) [facility] [id number] 06:49:00 Test Item Value Reference Range Interpretation Comments Protein, Total (test 6.8 See_Comment [Autom ated code = 2885-2) message] The system which generated this result transmit lane reference range : 6.0 - 8.3 gm/dL . The reference range was not u sed to interpret th is result as normal/abnormal . Albumin (test code = 3.5 g/dL 3.5-5 51521-3) Alkaline Phosphatase 44 U/L 40-150 (test code = 6768-6) Total Bilirubin (test 0.3 mg/dL 0.2-1.2 code = 1974-2) Sodium (test code = 139 meq/L 701-888 2293-2) Potassium (test code 3.8 meq/L 3.5-5.1 = 2823-3) Chloride (test code = 104 meq/L 98-107 2075-0) CO2 (test code = 27 meq/L 22-29 2028-9) BUN (test code = 12 mg/dL 7-21 3094-0) Creatinine (test code 1.05 mg/dL 0.57-1.25 = 2160-0) Glucose (test code = 79 mg/dL 70-105 2345-7) Calcium (test code = 8.4 mg/dL 8.4-10.2 21346-4) AST (test code = 49 U/L 5-34 H 1920-8) ALT (test code = 41 U/L 6-55 1742-6) EGFR (test code = 52 mL/min/1.[address] [place] [address]-3) NOT ACCURATE CREATININE CLEARANCE IN PREDICTING GLOMERULAR FILTRATION RATE . ESTIMATED GFR I S NOT APPLICABLE FOR DIALYSIS PATIEN TS. TORRES (test code = TORRES) Pig Caster ID - HUMBLE Porter Lab Interpretation Abnormal (test code = 25547-8) [facility]OL[facility] [id number] 06:49:00 Test Item Value Reference Range Interpretation [...] S NOT APPLICABLE FOR DIALYSIS PATIEN TS. Pig Caster ID - HUMBLE MPOCT-GLUCOSE [id number] 16:54:00 Test Item Value Reference Range Interpretation Comments POC-GLUCOSE METER 171 mg/dL 70-110 H : TESTED A T [facility] 6720 (BEAKER) (test code = [place], 1538) [address]: Pig Caster/Techni aldo ID = [id number] for ALBINO GONZALEZ Hemoglobin [id number] 15:22:00 Test Item Value Reference Range Interpretation Comments Hemoglobin A1C (test code = 4548-4) 6.2 % 4.3-6.1 H Lab Interpretation (test code = Abnormal 09980-5) [facility] HospitalHem[facility] [id number] 15:22:00 Test Item Value Reference Range Interpretation Comments Hemoglobin A1C (test code = 4548-4) 6.2 % 4.3-6.1 H Lab Interpretation (test code = Abnormal 30929-0) [facility] [id number] 15:22:00 Test Item Value Reference Range Interpretation Comments Hemoglobin A1C (test code = 4548-4) 6.2 % 4.3-6.1 H Lab Interpretation (test code = Abnormal 70865-9) [facility] [id number] 15:22:00 Test Item Value Reference Range Interpretation Comments Hemoglobin A1C (test code = 4548-4) 6.2 % 4.3-6.1 H Lab Interpretation (test code = Abnormal 41990-0) [facility] HospitalHEMOGLOBIN [id number] 15:22:00 Test Item Value Reference Range Interpretation Comments HEMOGLOBIN A1C (BEAKER) (test code = 6.2 % 4.3-6.1 H 368) POCT-GLUCOSE [id number] 12:56:00 Test Item Value Reference Range Interpretation Comments POC-GLUCOSE METER 93 mg/dL 70-110 : Notified RN/MD: TESTED (BEAKER) (test code = AT [facility] 67[address] [facility] 1538) [facility], 770 30: Pig Caster/Techni aldo ID = [id number] for [facility] Arely gorman PA, [id number] 12:02:00Reason for exam:->[facility] : 1950 Sex: FFluoroscopic unit utilized for a procedure performed in the OR. No interpretation was requested. Refer to the operative report for findings. Refer to PACS for patient radiation dose information.FL Endoscopic Retrograde Urqtdqljwtebwvwnaexdqgol3903-50-01 12:02:00Interface, External Ris In - 03/10/2021 12:18 PM CDTFluoroscopic unit utilized for a procedure performed in the OR. No interpretation was requested. Refer to the operative report for findings. Referto PACS for patient radiation dose information.[facility] Endoscopic Retrograde Bszmjcydvwrqsnmsiybzhgga4606-49-28 12:02:00Interface, External Ris In 03/10/2021 12:18 PM CDTFluoroscopic unit utilized for a procedure performed in the OR. No interpretation was requested. Refer to the operative report for findings. Referto PACS for patient radiation dose information.[facility] Endoscopic Retrograde Uxajcaenkcpiottxrnxmpcsm7399-44-08 12:02:00Interface, External Ris In 03/10/2021 12:18 PM CDTFluoroscopic unit utilized for a procedure performed in the OR. No interpretation was requested. Refer to the operative report for findings. Referto PACS for patient radiation dose information.[facility] Endoscopic Retrograde Plltihvrdumzczvarcpxfxul8591-15-33 12:02:00Interface, External Ris In 03/10/2021 12:18 PM CDTFluoroscopic unit utilized for a procedure performed in the OR. No interpretation was requested. Refer to the operative report for findings. Referto PACS for patient radiation dose information.[facility] HospitalPOCT-GLUCOSE [id number] 09:27:00 Test Item Value Reference Range Interpretation Comments POC-GLUCOSE METER 74 mg/dL 70-110 : TESTED A T [facility] 6720 ([facility]) (test code = [place] [facility], 1538) [address]: Pig Caster/Techni aldo ID = [id number] for ALBINO ROSS COMPREHENSIVE METABOLIC [id number] 05:49:00 Test Item Value Reference Range Interpretation Comments TOTAL PROTEIN 6.8 gm/dL 6.0-8.3 ([facility]) (test code = 770) ALBUMIN ([facility]) 3.5 g/dL 3.5-5.0 (test code = 1145) [...] S NOT APPLICABLE FOR DIALYSIS PATIEN TS. Pig Caster ID - HUMBLE [facility] (Hemogram only)2021-03-10 05:10:00 Test Item Value Reference Range Interpretation Comments WBC (test code = 6690-2) 9.1 See_Comment [A utomated message] The system iWatt generated this result transmitted ref erence range: 3.5 - 10 .5 K/L. The refe rence range was not u sed to interpret this result as normal/abnor mal. RBC (test code = 789-8) 3.57 See_Comment L [Au tomated message] The system iWatt generated this result transmitted ref erence range: 3.93 - 5 .22 M/L. The refe rence range was not u sed to interpret this result as normal/abnor mal. MCHC (test code = 786-4) 30.9 See_Comment L [A utomated message] The system iWatt generated this result transmitted ref erence range: [...] See_Comment [Aut omated message] 777-3) The system iWatt generated this result transmitted ref erence range: 150 - 45 0 K/CU MM. The referen ce range was not u sed to interpret this result as normal/abnor mal. MPV (test code = 9.3 fL 9.4-12.3 L 09348-9) nRBC (test code = 413) 0 See_Comment [Aut omated message] The system iWatt generated this result transmitted ref erence range: 0 - 0 /1 00 WBC. The refere nce range was not u sed to interpret this result as normal/abnor mal. Lab Interpretation (test Abnormal code = 12205-2) [facility] (Hemogram only)2021-03-10 05:10:00 Test Item Value Reference Range Interpretation Comments WBC (test code = 6690-2) 9.1 See_Comment [A utomated message] The system iWatt generated this result transmitted ref erence range: 3.5 - 10 .5 K/L. The refe rence range was not u sed to interpret this result as normal/abnor mal. RBC (test code = 789-8) 3.57 See_Comment L [Au tomated message] The system iWatt generated this result transmitted ref erence range: 3.93 - 5 .22 M/L. The refe rence range was not u sed to interpret this result as normal/abnor mal. MCHC (test code = 786-4) 30.9 See_Comment L [A utomated message] The system iWatt generated this result transmitted ref erence range: [...] See_Comment [Aut omated message] 777-3) The system iWatt generated this result transmitted ref erence range: 150 - 45 0 K/CU MM. The referen ce range was not u sed to interpret this result as normal/abnor mal. MPV (test code = 9.3 fL 9.4-12.3 L 20562-2) nRBC (test code = 413) 0 See_Comment [Aut omated message] The system iWatt generated this result transmitted ref erence range: 0 - 0 /1 00 WBC. The refere nce range was not u sed to interpret this result as normal/abnor mal. Lab Interpretation (test Abnormal code = 88209-8) [facility] (Hemogram only)2021-03-10 05:10:00 Test Item Value Reference Range Interpretation Comments WBC (test code = 6690-2) 9.1 See_Comment [A utomated message] The system iWatt generated this result transmitted ref erence range: 3.5 - 10 .5 K/L. The refe rence range was not u sed to interpret this result as normal/abnor mal. RBC (test code = 789-8) 3.57 See_Comment L [Au tomated message] The system iWatt generated this result transmitted ref erence range: 3.93 - 5 .22 M/L. The refe rence range was not u sed to interpret this result as normal/abnor mal. MCHC (test code = 786-4) 30.9 See_Comment L [A utomated message] The system iWatt generated this result transmitted ref erence range: [...] See_Comment [Aut omated message] 777-3) The system iWatt generated this result transmitted ref erence range: 150 - 45 0 K/CU MM. The referen ce range was not u sed to interpret this result as normal/abnor mal. MPV (test code = 9.3 fL 9.4-12.3 L 35618-6) nRBC (test code = 413) 0 See_Comment [Aut omated message] The system iWatt generated this result transmitted ref erence range: 0 - 0 /1 00 WBC. The refere nce range was not u sed to interpret this result as normal/abnor mal. Lab Interpretation (test Abnormal code = 81832-9) [facility] (Hemogram only)2021-03-10 05:10:00 Test Item Value Reference Range Interpretation Comments WBC (test code = 6690-2) 9.1 See_Comment [A utomated message] The system iWatt generated this result transmitted ref erence range: 3.5 - 10 .5 K/L. The refe rence range was not u sed to interpret this result as normal/abnor mal. RBC (test code = 789-8) 3.57 See_Comment L [Au tomated message] The system iWatt generated this result transmitted ref erence range: 3.93 - 5 .22 M/L. The refe rence range was not u sed to interpret this result as normal/abnor mal. MCHC (test code = 786-4) 30.9 See_Comment L [A utomated message] The system iWatt generated this result transmitted ref erence range: [...] See_Comment [Aut omated message] 777-3) The system iWatt generated this result transmitted ref erence range: 150 - 45 0 K/CU MM. The referen ce range was not u sed to interpret this result as normal/abnor mal. MPV (test code = 9.3 fL 9.4-12.3 L 87454-3) nRBC (test code = 413) 0 See_Comment [Aut omated message] The system iWatt generated this result transmitted ref erence range: 0 - 0 /1 00 WBC. The refere nce range was not u sed to interpret this result as normal/abnor mal. Lab Interpretation (test Abnormal code = 23711-5) [facility] (HEMOGRAM ONLY)2021-03-10 05:10:00 Test Item [...] 0-0 (BEAKER) (test code = 413) POCT-GLUCOSE [id number] 00:05:00 Test Item Value Reference Range Interpretation Comments POC-GLUCOSE METER 83 mg/dL 70-110 : TESTED A T [facility] 6720 (BEAKER) (test code = [place] [facility], 1538) [address]: Pig Caster/Techni aldo ID = [id number] for BRENDA VENCES SARS-COV2/RT-PCR ([facility])2021-03-09 23:58:00 Test Item Value Reference Range Interpretation Comments SARS-COV2/RT-PCR (test Negative Not Detected, Negative, code = 5674506) See external report for linked test SARS-COV-2 PERFORMING LAB [facility] SHIV (test code = 8242478) Negative result for this test determines that [...] 564(g) of the Act.Fact Sheet for Healthcare Providers:https://www.[employer]/sites/default/files/product/documents/Fact_Shee u_IX_Avqivruyv_Dylm_APTB-NuI-4.pdfFact Sheet for Healthcare Patients:https://www.[employer]/sites/default/files/product/ documents/Vicq_Ijagh_Xffbpzeo_Iomu_WFFT-RvL-5.pdfPerforming Laboratory:[place] [id number], [place] [address]ZLMJ-ZOOIFBQ METER 2021-03-09 17:34:00 Test Item Value Reference Range Interpretation Comments POC-GLUCOSE METER 97 mg/dL 70-110 : TESTED A T [facility] 6720 (LIA) (test code = [place] [facility], 1538) [address]: Pig Caster/Techni aldo ID = [id number] for ALBINO ROSS MR, ABDOMEN, [id number] 17:11:00Unlisted Reason for Exam - Click Yes and Enter Reason Below->NoPatient with hyperdense material seen in distal CBD on CTA performed in [facility] : 1950 Sex: FFINAL [...] 12/29/2005 but appears chronic Signed: Ashely Aly MDReport Verified Date/Time: 03/09/2021 17:11:18 Reading Location: [address] Transitional Reading Room MR abdomen without IV contrast [id number] 17:11:00 Interface, External Ris In - 03/09/2021 [...] Alyeport Verified Date/Time: 03/09/2021 17:11:18 Reading Location: [address] [facility] [id number] 17:11:00 Interface, External Ris In - 03/09/2021 [...] Alyeport Verified Date/Time: 03/09/2021 17:11:18 Reading Location: [facility] [id number] 17:11:00 Interface, External Ris In - 03/09/2021 [...] 12/29/2005 but appears chronic Signed: Ashely Aly [facility] Verified Date/Time: 03/09/2021 17:11:18 Reading Location: [facility] B1 C013T Transitional Reading Room [facility] [id number] 17:11:00 Interface, External Ris In - 03/09/2021 [...] CT 12/29/2005 but appears chronic [facility] Date/Time: 03/09/2021 17:11:18 Reading Location: [address] Transitional Reading Room [facility] [id number] 12:41:00 Test Item Value Reference Range Interpretation Comments POC-GLUCOSE METER 92 mg/dL 70-110 : TESTED A T [facility] 6720 (BEAKER) (test code = [place] [facility], 1538) [address]: Pig Caster/Techni aldo ID = [id number] for TEZE NO, ALBINO Urinalysis w/Microscopic + Reflex to [id number] 11:21:00 Test Item Value Reference Range Interpretation Comments Color, UA (test code Light Yellow = 5778-6) Clarity, UA (test Clear code = 5767-9) Specific Kidder, UA 1.033 1.001-1.035 (test code = 5811-5) pH, UA (test code = 5.5 5.0-8.0 5803-2) Protein, UA (test Negative Negative code = 16788-6) Glucose, UA (test Negative Negative code = 365) Ketones, UA (test Negative Negative code = 2514-8) Bilirubin, UA (test Negative Negative code = 00995-4) Blood, UA (test code Trace Negative A = 03313-4) Nitrite, UA (test Negative Negative code = 5802-4) Leukocytes, UA (test Negative Negative code = 5799-2) Urobilinogen, UA 0.2 mg/dL 0.2-1 (test code = 01883-0) RBC, UA (test code = 2 See_Comment [Autom ated 60964-1) message] The system which generated this result [...] Bacteria, UA (test None Seen code = 96911-0) Mucus (test code = Rare 8247-9) Squam Epithel, UA 1 See_Comment [Automate d (test code = 05462-6) messag e] The system which generated this result transmit lane reference range : /HPF. The reference range was not used to interpret this result as normal/abnormal . Crystals, Urine (test None Seen code = 17867-1) Specimen Source (test code = 2795) TORRES (test code = TORRES) Pig Caster ID - [auto]Pig Caster ID - tech Lab Interpretation Abnormal (test code = 26392-1) [facility]/Microscopic + Reflex to Culture 2021-03-09 11:21:00 Test Item Value Reference Range Interpretation Comments Color, UA (test code Light Yellow = 5778-6) Clarity, UA (test Clear code = 5767-9) Specific Kidder, UA 1.033 1.001-1.035 (test code = 5811-5) pH, UA (test code = 5.5 5.0-8.0 5803-2) Protein, UA (test Negative Negative code = 29079-7) Glucose, UA (test Negative Negative code = 365) Ketones, UA (test Negative Negative code = 2514-8) Bilirubin, UA (test Negative Negative code = 99459-4) Blood, UA (test code Trace Negative A = 97510-8) Nitrite, UA (test Negative Negative code = 5802-4) Leukocytes, UA (test Negative Negative code = 5799-2) Urobilinogen, UA 0.2 mg/dL 0.2-1 (test code = 99842-4) RBC, UA (test code = 2 See_Comment [Autom ated 82544-7) message] The system which generated this result [...] Bacteria, UA (test None Seen code = 11819-3) Mucus (test code = Rare 8247-9) Squam Epithel, UA 1 See_Comment [Automate d (test code = 14042-9) messag e] The system which generated this result transmit lane reference range : /HPF. The reference range was not used to interpret this result as normal/abnormal . Crystals, Urine (test None Seen code = 63415-7) Specimen Source (test code = 2795) TORRES (test code = TORRES) Pig Caster ID - [auto]Pig Caster ID - tech Lab Interpretation Abnormal (test code = 20851-8) [facility]/Microscopic + Reflex to Culture 2021-03-09 11:21:00 Test Item Value Reference Range Interpretation Comments Color, UA (test code Light Yellow = 5778-6) Clarity, UA (test Clear code = 5767-9) Specific Kidder, UA 1.033 1.001-1.035 (test code = 5811-5) pH, UA (test code = 5.5 5.0-8.0 5803-2) Protein, UA (test Negative Negative code = 03367-5) Glucose, UA (test Negative Negative code = 365) Ketones, UA (test Negative Negative code = 2514-8) Bilirubin, UA (test Negative Negative code = 22837-8) Blood, UA (test code Trace Negative A = 33722-6) Nitrite, UA (test Negative Negative code = 5802-4) Leukocytes, UA (test Negative Negative code = 5799-2) Urobilinogen, UA 0.2 mg/dL 0.2-1 (test code = 24872-2) RBC, UA (test code = 2 See_Comment [Autom ated 95836-3) message] The system which generated this result [...] Bacteria, UA (test None Seen code = 75754-5) Mucus (test code = Rare 8247-9) Squam Epithel, UA 1 See_Comment [Automate d (test code = 25827-7) messag e] The system which generated this result transmit lane reference range : /HPF. The reference range was not used to interpret this result as normal/abnormal . Crystals, Urine (test None Seen code = 10080-8) Specimen Source (test code = 2795) TORRES (test code = TORRES) Pig Caster ID - [auto]Pig Caster ID - tech Lab Interpretation Abnormal (test code = 56209-6) [facility]/Microscopic + Reflex to Culture 2021-03-09 11:21:00 Test Item Value Reference Range Interpretation Comments Color, UA (test code Light Yellow = 5778-6) Clarity, UA (test Clear code = 5767-9) Specific Kidder, UA 1.033 1.001-1.035 (test code = 5811-5) pH, UA (test code = 5.5 5.0-8.0 5803-2) Protein, UA (test Negative Negative code = 33195-7) Glucose, UA (test Negative Negative code = 365) Ketones, UA (test Negative Negative code = 2514-8) Bilirubin, UA (test Negative Negative code = 44185-7) Blood, UA (test code Trace Negative A = 74853-6) Nitrite, UA (test Negative Negative code = 5802-4) Leukocytes, UA (test Negative Negative code = 5799-2) Urobilinogen, UA 0.2 mg/dL 0.2-1 (test code = 11391-4) RBC, UA (test code = 2 See_Comment [Autom ated 77055-3) message] The system which generated this result [...] Bacteria, UA (test None Seen code = 37644-3) Mucus (test code = Rare 8247-9) Squam Epithel, UA 1 See_Comment [Automate d (test code = 52762-4) messag e] The system which generated this result transmit lane reference range : /HPF. The reference range was not used to interpret this result as normal/abnormal . Crystals, Urine (test None Seen code = 51414-0) Specimen Source (test code = 2795) TORRES (test code = TORRES) Pig Caster ID - [auto]Pig Caster ID - tech Lab Interpretation Abnormal (test code = 34401-0) [facility]/ REFLEX URINE [id number] 11:21:00 Test Item Value Reference Range Interpretation [...] = 1521) SOURCE(BEAKER) (test code = 2795) Pig Caster ID - [auto]Pig Caster ID - techHEMOGLOBIN [id number] 10:22:00 Test Item Value Reference Range Interpretation Comments HEMOGLOBIN A1C (BEAKER) (test code = 6.1 % 4.3-6.1 368) [id number] 06:48:00 Test Item Value Reference Range Interpretation Comments Magnesium (test code = 2.1 mg/dL 1.6-2.6 04095-4) TORRES (test code = TORRES) Pig Caster ID - ELVIN W Lab Interpretation (test Normal code = 99980-9) [facility] HospitalMagnesium2021-06-28 06:48:00 Test Item Value Reference Range Interpretation Comments Magnesium (test code = 2.1 mg/dL 1.6-2.6 47737-5) TORRES (test code = TORRES) Pig Caster ID - ELVIN W Lab Interpretation (test Normal code = 76529-4) [facility]esium2021-06-28 06:48:00 Test Item Value Reference Range Interpretation Comments Magnesium (test code = 2.1 mg/dL 1.6-2.6 00581-0) TORRES (test code = TORRES) Pig Caster ID - ELVIN W Lab Interpretation (test Normal code = 93164-4) [facility] Hospital[facility]esium2021-06-28 06:48:00 Test Item Value Reference Range Interpretation Comments Magnesium (test code = 2.1 mg/dL 1.6-2.6 42158-9) TORRES (test code = TORRES) Pig Caster ID - ELVIN W Lab Interpretation (test Normal code = 20276-9) [facility] HospitalBASIC METABOLIC [id number] 06:48:00 Test Item Value Reference Range Interpretation [...] S NOT APPLICABLE FOR DIALYSIS PATIEN TS. Pig Caster ID - ELVIN [id number] 06:48:00 Test Item Value Reference Range Interpretation Comments MAGNESIUM (BEAKER) (test code = 2.1 mg/dL 1.6-2.6 627) Pig Caster ID - ELVIN WHEPATIC FUNCTION [id number] 06:48:00 Test Item Value Reference Range Interpretation [...] (test code = 30 U/L 6-55 347) Pig Caster ID - ELVIN WPROTHROMBIN TIME/[id number] 06:32:00 Test Item Value Reference Range Interpretation Comments PROTIME (BEAKER) 12.9 seconds 11.9-14.2 (test code = 759) INR (BEAKER) (test 0.99 See_Comment [Automat ed message] code = 370) The system iWatt generated this result transmitted ref erence range: [...] code = 2801) MRI Brain wo contrast [id number] 16:25:00Patient Name: RIYA LUNADOB: 1950. Age: 67 years. Gender: Female.MR: [id number]. Location: [facility]. Provider: Hollie Osorio MD.EXAM: Brain wo contrast [...] intracranial abnormality. Mild chronicmicroangiopathic ischemic gliosis. SL: [id number] by: Finesse Dias MDDictated Date/time: 0 02/08/18 17:31Electronically Signed by: Finesse Dias MD 02/08/1817:40FINALREPORTUnUtah Valley Hospital PhysiciansK[facility] Brain w/wo contrast [id number] 13:39:00 Test Item Value Reference Range Interpretation Comments Brain w/wo contrast MRI Cancel Reason: Exam (test code = Brain w/wo Replaced contrast MRI) [facility]"
[2021-08-20] MEDS ORDERED: NA CHLORIDE 0.9% 500 ML ONE (13:32)
[2021-08-20] MEDS ORDERED: HYDROMORPHONE HCL 1 MG/ML INJ ONE (13:32)
[2021-08-20] MEDS ORDERED: ONDANSETRON 4 MG/2 ML VIAL ONE (13:32)
[2021-08-20 14:15] LABS: Absolute Lymphocytes (CBC) 2.4 K/uL (0.7-4.9); Basophils % 0.4 % (0-1.3); Hematocrit 31.5 % (36.0-45.0); Lymphocytes % 18.5 % (15.3-44.8); MPV 7.3 fL (7.6-11.3); RBC Red Blood Cell Count 3.48 M/uL (3.86-4.86)
[2021-08-20 14:26] LABS: ALT/SGPT 21 U/L (12-78); Albumin 3.5 g/dL (3.4-5.0); Alkaline Phosphatase 60 U/L (45-117); BUN Blood Urea Nitrogen 20 mg/dL (7-18); Bicarbonate 22 mmol/L (21-32); Bilirubin Direct < 0.1 mg/dL (0-0.2); Bilirubin Total 0.2 mg/dL (0.2-1.0); Glucose Level 70 mg/dL (74-106); Lipase 305 U/L (73-393); Protein, Total 8.1 g/dL (6.4-8.2); Sodium Level 139 mmol/L (136-145)
[2021-08-20 14:27] LABS: AST/SGOT 16 U/L (15-37); Potassium 3.9 mmol/L (3.5-5.1)
--- NOTE | 2021-08-20 14:44 | EDPHYS ---
Physician Documentation [facility] Name: Alberto Botello Age: 71 yrs Sex: Female : 1950 Arrival Date: 08/20/2021 Time: 13:19 Bed 5 Private MD: ED Physician Mike Shelton HPI: 08/20 13:30 This 71 yrs old Female presents to ER via Ambulatory with complaints of Abdominal Pain. sp3 13:30 71-year-old female with a history of chronic pain, hepatitis, pancreatitis, diabetes sp3 presents again to the ED for her acute on chronic abdominal pain. Patient is on 10/325 mg of [place] at home which did not help with the pain. Patient denies having any vomiting, diarrhea, back pain, fever, melena, headache, neck pain, chest pain, shortness of breath, any other ROS at this time. Patient has not contacted her pain management physician prior to coming to the ED.. Historical: - Allergies: 13:25 No Known Allergies; tw2 - Home Meds: 13:25 benztropine 0.5 mg Oral tab 1 tab 2 times per day [Active]; alprazolam 2 mg Oral tab 1 tw2 tab nightly [Active]; Amitiza 24 mcg Oral cap 1 cap [Active]; citalopram 20 mg tab 1 tab once daily [Active]; Linzess 145 mcg Oral cap 1 cap once daily [Active]; lisinopril 10 mg Oral tab 1 tab once daily [Active]; meclizine 25 mg Oral cap as needed [Active]; [place] 7.5-325 mg Oral tab 1 tab TID [Active]; Protonix 40 mg Oral TbEC 1 tab once daily [Active]; risperadone 0.5 daily [Active]; ursodiol 500 mg Oral tab daily [Active]; Vitamin D Oral 1000 unit daily [Active]; - PMHx: 13:25 Anxiety; Chronic pain; Hepatitis; Osteoporosis; Diabetes - NIDDM; Hypertension; tw2 Pancreatitis; - PSHx: 13:25 Cholecystectomy; tw2 - Immunization history:: Adult Immunizations. - Social history:: Smoking status: . ROS: 13:31 Constitutional: Negative for fever, chills, and weight loss, Eyes: Negative for injury, sp3 pain, redness, and discharge, ENT: Negative for injury, pain, and discharge, Neck: Negative for injury, pain, and swelling, Cardiovascular: Negative for chest pain, palpitations, and edema, Respiratory: Negative for shortness of breath, cough, wheezing, and pleuritic chest pain, Back: Negative for injury and pain, MS/Extremity: Negative for injury and deformity, Skin: Negative for injury, rash, and discoloration, Neuro: Negative for headache, weakness, numbness, tingling, and seizure, Psych: Negative for depression, anxiety, suicide ideation, homicidal ideation, and hallucinations, Allergy/Immunology: Negative for hives, rash, and allergies, Endocrine: Negative for neck swelling, polydipsia, polyuria, polyphagia, and marked weight changes, Hematologic/Lymphatic: Negative for swollen nodes, abnormal bleeding, and unusual bruising. Exam: 13:31 Constitutional: This is a well developed, well nourished patient who is awake, alert, sp3 and in no acute distress. Head/Face: Normocephalic, atraumatic. Eyes: Pupils equal round and reactive to light, extra-ocular motions intact. Lids and lashes normal. Conjunctiva and sclera are non-icteric and not injected. Cornea within normal limits. Periorbital areas with no swelling, redness, or edema. Neck: Trachea midline, no thyromegaly or masses palpated, and no cervical lymphadenopathy. Supple, full range of motion without nuchal rigidity, or vertebral point tenderness. No Meningismus. Chest/axilla: Normal chest wall appearance and motion. Nontender with no deformity. No lesions are appreciated. Cardiovascular: Regular rate and rhythm with a normal S1 and S2. No gallops, murmurs, or rubs. Normal PMI, no JVD. No pulse deficits. Respiratory: Lungs have equal breath sounds bilaterally, clear to auscultation and percussion. No rales, rhonchi or wheezes noted. No increased work of breathing, no retractions or nasal flaring. Back: No spinal tenderness. No costovertebral tenderness. Full range of motion. Skin: Warm, dry with normal turgor. Normal color with no rashes, no lesions, and no evidence of cellulitis. MS/ Extremity: Pulses equal, no cyanosis. Neurovascular intact. Full, normal range of motion. Neuro: Awake and alert, GCS 15, oriented to person, place, time, and situation. Cranial nerves II-XII grossly intact. Motor strength 5/5 in all extremities. Sensory grossly intact. Cerebellar exam normal. Normal gait. 13:31 Abdomen/GI: Soft abdomen and patient is not expressing tenderness when distracted during exam but when focusing on my exam patient grimaces to epigastric palpation. Bowel sounds are normal.. Vital Signs: 13:25 BP 137 / 83; Pulse 89; Resp 16; Temp 97.7(TE); Pulse Ox 97% on R/A; Pain 8/10; ss 14:23 BP 141 / 75; Pulse 80; Resp 17; Pulse Ox 96% on R/A; tw2 14:58 BP 108 / 58; Pulse 80; Resp 17; Pulse Ox 95% on R/A; tw2 MDM: 13:25 Patient medically screened. sp3 13:32 Data reviewed: vital signs, nurses notes. ED course: Patient evaluated and does not sp3 demonstrate acute abdomen or peritoneal signs. Will give 1 dose of IV pain medication and normal saline while laboratory values are pending. If lipase and remainder of labs are normal, will discharge patient home to chronic pain follow-up. Patient and family are okay with this plan and have no further questions.. 14:43 ED course: Laboratory values are within normal limits. Will discharge patient home at 3 this time. Patient to follow-up with her chronic pain physician.. 12/ 13:29 Order name: Basic Metabolic Panel sp3 12 13:29 Order name: CBC with Diff sp3 12 13:29 Order name: Hepatic Function; Complete Time: 14:43 sp3 08/20 13:29 Order name: Lipase; Complete Time: 14:43 sp3 12 13:30 Order name: Basic Metabolic Panel; Complete Time: 14:43 EDMS 12 13:29 Order name: IV Saline Lock; Complete Time: 13:57 sp3 12 13:29 Order name: Labs collected and sent; Complete Time: 13:57 sp3 Administered Medications: 14:03 Drug: NS 0.9% 500 ml Route: IV; Rate: bolus; Site: left forearm; tw2 14:59 Follow up: Response: No adverse reaction; IV Status: Completed infusion; IV Intake: tw2 500ml 14:03 Drug: Zofran (Ondansetron) 4 mg Route: IVP; Site: left forearm; tw2 14:59 Follow up: Response: No adverse reaction tw2 14:05 Drug: Dilaudid (HYDROmorphone) 1 mg {Note: RASS 0.} Route: IVP; Site: left forearm; tw2 14:58 Follow up: Response: No adverse reaction; Pain is decreased; RASS: Alert and Calm (0) tw2 Disposition Summary: 08/20/21 14:44 Discharge Ordered Location: Home sp3 Condition: Stable sp3 Diagnosis - Chronic pain syndrome sp3 Followup: sp3 - With: Private Physician - When: As needed - Reason: Recheck today's complaints Discharge Instructions: - Discharge Summary Sheet sp3 - Chronic Pain, Adult sp3 Forms: - Medication Reconciliation Form sp3 - Thank You Letter sp3 - Antibiotic Education sp3 - Prescription Opioid Use sp3 Signatures: Dispatcher [employer] Joana Burns RN RN tw2 Mike Shelton MD MD sp3
--- NOTE | 2021-08-20 14:44 | ER ---
Nurse's Notes [facility] Name: Alberto Botello Age: 71 yrs Sex: Female : 1950 Arrival Date: 08/20/2021 Time: 13:19 Bed 5 Private MD: Diagnosis: Chronic pain syndrome Presentation: 08/20 13:25 Chief complaint: Patient states: chronic abd pain that got worse this morning. ss Coronavirus screen: Client denies travel out of the [place] in the last 14 days. Ebola Screen: Patient denies exposure to infectious person. Patient denies travel to an Ebola-affected area in the 21 days before illness onset. Initial Sepsis Screen: Does the patient meet any 2 criteria? No. Patient's initial sepsis screen is negative. Does the patient have a suspected source of infection? No. Patient's initial sepsis screen is negative. Risk Assessment: Do you want to hurt yourself or someone else? Patient reports no desire to harm self or others. Onset of symptoms is unknown. 13:25 Method Of Arrival: Ambulatory ss 13:25 Acuity: ART 3 ss 13:[address] Shelton at bedside at this time. tw2 Historical: - Allergies: 13:25 No Known Allergies; tw2 - Home Meds: 13:25 benztropine 0.5 mg Oral tab 1 tab 2 times per day [Active]; alprazolam 2 mg Oral tab 1 tw2 tab nightly [Active]; Amitiza 24 mcg Oral cap 1 cap [Active]; citalopram 20 mg tab 1 tab once daily [Active]; Linzess 145 mcg Oral cap 1 cap once daily [Active]; lisinopril 10 mg Oral tab 1 tab once daily [Active]; meclizine 25 mg Oral cap as needed [Active]; [place] 7.5-325 mg Oral tab 1 tab TID [Active]; Protonix 40 mg Oral TbEC 1 tab once daily [Active]; risperadone 0.5 daily [Active]; ursodiol 500 mg Oral tab daily [Active]; Vitamin D Oral 1000 unit daily [Active]; - PMHx: 13:25 Anxiety; Chronic pain; Hepatitis; Osteoporosis; Diabetes - NIDDM; Hypertension; tw2 Pancreatitis; - PSHx: 13:25 Cholecystectomy; tw2 - Immunization history:: Adult Immunizations. - Social history:: Smoking status: . Screenin:23 Abuse screen: Denies threats or abuse. Nutritional screening: No deficits noted. tw2 Tuberculosis screening: No symptoms or risk factors identified. Fall Risk Secondary diagnosis (15 points). Assessment: 13:50 General: Appears in no apparent distress. slender, well groomed, Behavior is calm, tw2 cooperative, appropriate for age. Pain: Complains of pain in abdomen. Neuro: Level of Consciousness is awake, alert, obeys commands, Oriented to person, place, situation. Cardiovascular: Patient's skin is warm and dry. Respiratory: Airway is patent Respiratory effort is even, unlabored, Respiratory pattern is regular, symmetrical. GI: n/a n/a Reports lower abdominal pain, upper abdominal pain. Musculoskeletal: Range of motion: intact in all extremities. 14:23 Reassessment: Patient appears in no apparent distress at this time. Patient and/or tw2 family updated on plan of care and expected duration. Pain level reassessed. Patient is alert, oriented x 3, equal unlabored respirations, skin warm/dry/pink. Patient states feeling better. Patient states symptoms have improved. 14:59 Reassessment: Patient appears in no apparent distress at this time. Patient and/or tw2 family updated on plan of care and expected duration. Pain level reassessed. Patient is alert, oriented x 3, equal unlabored respirations, skin warm/dry/pink. Patient states feeling better. Patient states symptoms have improved. Vital Signs: 13:25 BP 137 / 83; Pulse 89; Resp 16; Temp 97.7(TE); Pulse Ox 97% on R/A; Pain 8/10; ss 14:23 BP 141 / 75; Pulse 80; Resp 17; Pulse Ox 96% on R/A; tw2 14:58 BP 108 / 58; Pulse 80; Resp 17; Pulse Ox 95% on R/A; tw2 ED Course: 13:19 Patient arrived in ED. kc5 13:22 Mike Shelton MD is Attending Physician. sp3 13:23 Joana Knight, YOSVANY is Primary Nurse. tw2 13:25 Bed in low position. Call light in reach. Adult w/ patient. Pulse ox on. NIBP on. tw2 13:27 Arm band placed on. tw2 13:30 Triage completed. ss 13:50 Missed attempt(s): 20 gauge in right forearm. Bleeding controlled, band aid applied, tw2 catheter tip intact. 13:51 Missed attempt(s): 22 gauge in left forearm. blood collected. notified YOSVANY Charles of tw2 need for IV at this time.. Bleeding controlled, band aid applied, catheter tip intact. 13:57 Inserted saline lock: 22 gauge in left forearm, using aseptic technique. jd3 14:59 No provider procedures requiring assistance completed. IV discontinued, intact, tw2 bleeding controlled, No redness/swelling at site. Pressure dressing applied. Administered Medications: 14:03 Drug: NS 0.9% 500 ml Route: IV; Rate: bolus; Site: left forearm; tw2 14:59 Follow up: Response: No adverse reaction; IV Status: Completed infusion; IV Intake: tw2 500ml 14:03 Drug: Zofran (Ondansetron) 4 mg Route: IVP; Site: left forearm; tw2 14:59 Follow up: Response: No adverse reaction tw2 14:05 Drug: Dilaudid (HYDROmorphone) 1 mg {Note: RASS 0.} Route: IVP; Site: left forearm; tw2 14:58 Follow up: Response: No adverse reaction; Pain is decreased; RASS: Alert and Calm (0) tw2 Intake: 14:59 IV: 500ml; Total: 500ml. tw2 Outcome: 14:44 Discharge ordered by . sp3 14:59 Discharged to home via wheelchair, with family. tw2 14:59 Condition: stable 14:59 Discharge instructions given to patient, family, Instructed on discharge instructions, follow up and referral plans. Demonstrated understanding of instructions, follow-up care. 15:00 Patient left the ED. tw2 Signatures: Kerry Lucas RN RN ss Wise, Tara, RN RN tw2 Gregorio Aguirre RN RN jd3 Patel, Setul, MD MD sp3 Liliana Dawn kc5 Corrections: (The following items were deleted from the chart) 13:52 13:51 Missed attempt(s): 22 gauge in left forearm. blood collected. Bleeding tw2 controlled, band aid applied, catheter tip intact. tw2
[2021-08-20 15:04] VITALS: TEMP 97.7
[2021-08-20 15:08] VITALS: BP 108/58; O2SAT 95
[2021-08-20 19:57] LABS: Blood Morphology Comment NOT SEEN (NOT SEEN); Platelet Estimate ADEQ; White Blood Cell Scan OK (OK)
== END 2021-08-20 15:00 | disposition home or self-care (01) ==
LOC: ER 13:16
DX: G89.4 Chronic pain syndrome (principal); I10 Essential (primary) hypertension; E11.9 Type 2 diabetes mellitus without complications
CPT/HCPCS: 96361; 85025; 80048; 36415; 80076; 83690; 96375; 96374; 99283; J1170; J7040; J2405

== ENCOUNTER 2021-08-23 17:40 | Emergency (ER) | payer OTHER ==
--- OUTSIDE RECORDS SUMMARY | 2021-08-23 17:48 | XMS REPORT | Continuity of Care Document ---
:1950 Author Organization [facility] t Address [address] [place] [address] Care Team Providers Name Role Phone Jamison Primary Care Physician Maribel BURNETT Attending Clinician Unavailable JAWORION Attending [...] Expiration Date Brandy haywood MEDICARE A B [id number] 2021 00:00:00 [place]ICAID OF [place] [id number] MEDICARE PART A [id number] \\T\\ B - MEDICARE [facility]-MEDICAID - [id number] MEDICAID MEDICARE PART A [id number] 2003 \\T\\ B 00:00:00 [place] [id number] 2013 00:00:00 Problems Condition Condition Condition Status [...] Closed Closed Disease Active Univers fracture fracture 707 ity of of first of first 00:00: [place] lumbar lumbar 00 Medical vertebra vertebra Branch with with routine routine healing healing Hypertensi Hypertensi Disease Active C HI [facility] on on [facility] Diabetes Diabetes Disease Active [facility] S t mellitus mellitus [facility] New onset New onset Problem Active [...] NO KNOWN Allergy Active [facility] NO KNOWN Drug Active Univers ALLERGIE Class ity of S [place] Medical [place] Family History Family Member Diagnosis Comments Start Date Stop Date Source Father Family history of Univers ity of [place] lung cancer Physicians Social History Social Habit Start Date Stop Date Quantity Comments Source Exposure to Not sure [facility] SARS-CoV-2 (event) Medica l Branch Tobacco use and 2021-05-07 2021-05-[address] [facility] - exposure 00:00:00 00:00:00 Medical Center Alcohol intake 2016-03-18 2016-03-18 0 /d [facility] 00:00:00 00:00:00 [facility] Sex Assigned At [birth year] [facility] 00:00:00 00:00:00 Medical Branch Smoking Status Start Date Stop Date Source Never smoker [facility] Medications Ordered Filled Start Stop Current Ordering Indication Dosage Frequency Signature Comments Components Source Medication Medication Date Date Medication? Clinician (SIG) Name Name iopamidol 2020-09- No [id number] 100mL 100 mL, Univers (ISOVUE 09-23 Intravenou ity o f 370-500 mL) 17:55: 17:55 s, ONCE, 1 [place] injection 00 :00 dose, On Medica l 100 mL [facility] 07/24/21 at 1215, Routine ondansetron 2020-09- No 4mg 4 mg, Slow Univers (ZOFRAN 09-23 IV Push, ity of (PF)) 17:45: 16:38 ONCE, 1 [place] injection 4 00 :00 dose, On Medi josephine mg [facility] 07/24/21 at 1145, Routine morpHINE 2020-09 Yes 4mg 4 mg, Slow Uni vers injection 4 09-23 IV Push, ity of mg 16:30: Q4HPRN, [place] 24 Starting Medical on Tue [place] 07/24/21 at 1030, Until Discontinu ed, Routine, [...] 10:59: daily. Medica l 53 Center risperiDONE 2021-0 Yes .5mg QD Take 0.5 CH I [...] MCG 10:59: mouth Medical capsule 53 daily. [place] alendronate Yes 70mg Take [address] (FOSAMAX) 8-26 by mouth Lukes - 70 MG 10:59: every 7 Medical tablet 53 days Take Center in the morning with a full glass of water, on an empty stomach, and do not take anything else by mouth or lie down for the next 30 min. . HYDROcodone Yes 1{tbl} Q.[id number] Take [address] -acetaminop 8-26 [id number] tablet by Lukes - hen (NORCO 10:59: [...] next 30 min. . HYDROcodone Yes 1{tbl} Q.12559206 Take [address] -acetaminop 8- [id number] tablet by Lukes - hen (NORCO 10:59: 3D mouth 3 Medi josephine 5-325) 53 (three) Center 5-325 mg times per tablet daily. ursodioL Yes 500mg QD Take [address] (ACTIGALL) 8-26 mg by Lukes - 500 MG 10:59: mouth Medical tablet 53 daily. [place] ALPRAZolam Yes 2mg Take 2 mg CH [...] MCG 10:59: mouth Medical capsule 53 daily. [place] alendronate Yes 70mg Take [address] (FOSAMAX) 8-26 by mouth Lukes - 70 MG 10:59: every 7 Medical tablet 53 days Take Center in the morning with a full glass of water, on an empty stomach, and do not take anything else by mouth or lie down for the next 30 min. . HYDROcodone Yes 1{tbl} Q.58968429 Take [address] -acetaminop 8-26 [id number] tablet by [facility]ukes - hen (NORCO 10:59: 3D mouth 3 Medi josephine 5-325) 53 (three) Center 5-325 mg times per tablet daily. ursodioL Yes 500mg QD Take [address] (ACTIGALL) 8-26 mg by Lukes - 500 MG 10:59: mouth Medical tablet 53 daily. [place] ALPRAZolam Yes 2mg Take [address] (XANAX) 2 8-26 by mouth Lukes - MG tablet 09:40: every Medical 47 night as Center needed for Sleep. pantoprazol 0 Yes 40mg QD Take [address] e 8-26 by mouth Lukes - (PROTONIX) 09:40: daily. Medic al 40 MG 47 Center tablet citalopram Yes 20mg QD Take [address] (CeleXA) 20 8-26 by mouth Luke s - MG tablet 09:40: daily. Medica l 47 Center risperiDONE 0 Yes .5mg QD Take 0.5 CH I [...] MCG 09:40: mouth Medical capsule 47 daily. [place] alendronate Yes 70mg Take [address] (FOSAMAX) 8-26 by mouth Lukes - 70 MG 09:40: every 7 Medical tablet 47 days Take Center in the morning with a full glass of water, on an empty stomach, and do not take anything else by mouth or lie down for the next 30 min. . HYDROcodone Yes 1{tbl} Q.88186254 Take [address] -acetaminop 8-26 [id number] tablet by Lukes - hen (NORCO 09:40: 3D mouth 3 Medi josephine 5-325) 47 (three) Center 5-325 mg times per tablet daily. ursodioL Yes 500mg QD Take [address] (ACTIGALL) 8-26 mg by Lukes - 500 MG 09:40: mouth Medical tablet 47 daily. [place]arnell meclizine Yes [facility] (ANTIVERT) 6-21 Lukes - 25 mg 00:00: Medical tablet 00 [place] meclizine Yes [facility] (ANTIVERT) 6-21 Lukes - 25 mg 00:00: Medical tablet 00 [place] meclizine Yes [facility] (ANTIVERT) 6-21 [facility]ukes - 25 mg 00:00: Medical tablet 00 [place] meclizine Yes [facility] (ANTIVERT) 6-21 [facility]ukes - 25 mg 00:00: Medical tablet 00 [place]ell Nortriptyli Nortriptyli Yes HOLLIE TAKE 1 Univers ne HCl - 25 ne HCl - 25 5-30 DOMENICO Michelle CAPSULE AT ity of MG Oral MG [...] TAKE 1.5 Univers Sulfate 30 Sulfate 30 02-01 TABLET i ty of MG Oral MG Oral 00:00: TWICE [place] Tablet Tablet 00 DAILY Physici ans MethylPREDN MethylPREDN Yes HOLLIE Valenzuela Univers ISolone 4 ISolone 4 02-01 DOMENICO Michelle dose lior ity of MG Oral MG Oral 00:00: (24 mg [place] Tablet Tablet 00 with Physici Therapy Therapy tapering ans Pack Pack dose to 4 mg over 6 days) MDD:24mg morphine Yes 30mg Take 30 mg Uni vers (AVINZA) 30 7-07 by mouth ity of mg 24 hr 08:12: daily. [facility] [place] [facility] 18 Medical Branch morphine Yes 30mg Take 30 mg Uni vers (AVINZA) 30 7-07 by mouth ity of mg 24 hr 08:12: daily. [facility] [place] [facility] 18 Medical Branch ALPRAZolam Yes 2mg Take 2 mg [place] (XANAX) 2 7-07 by mouth ity of mg tablet 08:12: at [place]time [place] 18 as needed Medical for Sleep. Branch amitriptyli Yes 10mg Take 10 mg Univers ne (ELAVIL) 7-07 by mouth ity of 10 mg 08:12: at [place] tablet 18 bedtime. Medical Branch ALPRAZolam Yes 2mg Take 2 mg [place] (XANAX) 2 7-07 by mouth ity of mg tablet 08:12: [...] TWICE A Medical DAY WITH Branch FOOD morpHINE Yes TK 1 AND Unive rs I.R. (MSIR) 6-10 1/2 TS PO ity of 30 mg 00:00: BID. tablet Medical Branch morpHINE Yes TK 1 AND Unive rs I.R. (MSIR) 6-10 1/2 TS PO ity of 30 mg [...] Immunizations Ordered Filled Immunization Date Status Comments [facility] e Immunization Name Name SARS-COV-2 COVID-19 2020-11-11 Completed Unive rsity of PFIZER VACCINE 00:00:00 [facility] SARS-COV-2 COVID-19 2020-11-11 Completed Unive rsity of PFIZER VACCINE 00:00:00 [facility] SARS-COV-2 COVID-19 2020-10-21 Completed Unive rsity of PFIZER VACCINE 00:00:00 [facility] SARS-COV-2 COVID-19 2020-10-21 Completed Unive rsity of PFIZER VACCINE 00:00:00 [facility] Vital Signs Vital Name Observation Time Observation Value Comments Source WEIGHT 2021-03-10 62.596 kg 11:08:00 Systolic blood 2021-07-24 144 mm[Hg] University of pressure 19:28:00 [facility] [facility] Diastolic blood 2021-07-24 90 mm[Hg] [place] o f pressure 19:28:00 [facility] Heart rate 2021-07-24 87 /min [facility] 19:28:00 [facility] Respiratory rate 2021-07-24 18 /min [facility] 19:28:00 [facility] Oxygen saturation 2021-07-24 97 /min [facility] in Arterial blood 19:28:00 [facility] by Pulse oximetry [place] Body temperature 2021-07-24 37 Carolann [facility] 16:20:00 [facility] Body weight 2021-07-24 61.236 kg [facility] 16:20:00 [facility] BMI 2021-07-24 25.51 kg/m2 [facility] 16:20:00 [facility] HEIGHT 2021-05-04 152.4 cm 17:29:00 WEIGHT 2021-05-04 61.689 kg 17:29:00 HEIGHT 2021-05-04 152.4 cm 17:29:00 WEIGHT 2021-05-04 61.689 kg 17:29:00 WEIGHT 2021-03-10 62.596 kg 11:08:00 Systolic blood 2021-05-07 156 mm[Hg] [facility] - pressure 08:00:00 [facility] Diastolic blood 2021-05-07 74 mm[Hg] [facility] - pressure 08:00:00 [facility] Heart rate 2021-05-07 76 /min [facility] - 08:00:00 [facility] Body temperature 2021-05-[address] [facility] - 08:00:00 [facility] Respiratory rate 2021-05-07 17 /min [facility] - 08:00:00 [facility] Oxygen saturation 2021-05-07 97 /min [facility] Sujata es - in Arterial blood 08:00:00 Medical nter by Pulse oximetry Body height 2021-05-04 152.[address] [facility] [address] [facility] - 17:29:00 [facility] Body weight 2021-05-04 61.689 kg [facility] Jaylan - 17:29:00 [facility] BMI 2021-05-04 26.56 kg/m2 [facility] Jaylan - 17:29:00 [facility] BP Systolic 2018-02-01 131 mm[Hg] Location: [facility] 08:36:00 Position: [place] Physician s Sitting BP Diastolic 2018-02-01 78 mm[Hg] Location: [facility] 08:36:00 Position: [place] Physician s Sitting Height 2018-02-01 60 [in_us] [facility] 08:36:00 [place] Physician s Weight 2018-02-01 117 [lb_av] [facility] 08:36:00 [place] Physician s Body Mass Index 2018-02-01 22.85 kg/m2 [facility] Calculated 08:36:00 [place] Physician s Heart Rate 2018-02-01 73 /min Location: [facility] 08:36:00 Brachial [place] Physician s Artery; Procedures Procedure Date / Time Performing Clinician Source Performed CT ABDOMEN PELVIS W 2021-07-24 18:00:55 Glenn Fu [facility] CONTRAST Medical Branch URINALYSIS 2021-07-24 17:39:00 Singer [facility] LIPASE 2021-07-24 16:33:00 Fu, [facility] COMP. METABOLIC PANEL 2021-07-24 16:33:00 Glenn Fu [facility] ([id number]) Medical Branch CBC WITH DIFF 2021-07-24 16:33:00 [facility] [place] [facility] NOTICE OF PRIVACY 2021-07-24 16:11:11 Doctor Juan, [facility] PRACTICES [facility] CONSENT/REFUSAL FOR 2021-07-24 16:10:58 Doctor Juan, [facility] DIAGNOSIS AND TREATMENT [facility] REPORT OF PROCEDURE - 2021-05-06 16:07:30 Shelton, Juan Alberto [facility] ENDOSCOPY [facility] ERCP,DIRECT VISUALIZATION 2021-05-06 15:00:00 Juan Alberto Shelton [facility] PROCEDURE W/ C-ARM 2021-05-06 15:00:00 Juan Alberto Shelton [facility] ERCP,BALLOON SWEEPING 2021-05-06 15:00:00 Juan Alberto Shelton [facility] CBC W/PLT COUNT & AUTO 2021-05-06 05:51:00 [facility] DIFFERENTIAL [facility] BASIC METABOLIC PANEL (7) 2021-05-06 05:51:00 Gadicherla, [facility] HEPATIC FUNCTION PANEL 2021-05-06 05:51:00 Gadicherjenny [facility] ABORH, MANUAL 2021-05-05 05:07:00 Zunilda Rubin [facility] TYPE AND SCREEN, 2021-05-05 04:14:00 Roxie [facility] AUTOMATED [facility] PROTHROMBIN TIME/INR 2021-05-05 04:14:00 [facility] SARS-COV2/RT-PCR ([facility] & 2021-05-05 00:18:00 GadicherBritney alvarado [facility] - REF LABS) [facility] BLOOD GAS, VENOUS 2021-05-05 00:14:00 Roxie [facility] KETONE, BLOOD 2021-05-05 00:14:00 Roxie [facility] HIGH SENSITIVITY TROPONIN 2021-05-05 00:14:00 Cherie Faustin [facility] ED ECG INTERPRETATION 2021-05-04 23:15:[address] [facility] BASIC METABOLIC PANEL (7) 2021-05-04 21:30:00 Cherie Faustin [facility] HEPATIC FUNCTION PANEL 2021-05-04 21:30:00 Shinthia, [facility] AMYLASE 2021-05-04 21:30:00 Roxie [facility] LIPASE 2021-05-04 21:30:00 Roxie [facility] CBC W/PLT COUNT & AUTO 2021-05-04 19:37:00 Roxie [facility] ECG 12-LEAD 2021-05-04 19:22:33 Unknown, Hl7 Doctor [facility] POCT-GLUCOSE METER 2021-03-11 08:21:00 Jessica Boone [facility] COMPREHENSIVE METABOLIC 2021-03-11 06:09:00 [place] [facility] REPORT OF PROCEDURE - 2021-03-10 23:43:51 Kathy [facility] ENDOSCOPY [facility] POCT-GLUCOSE METER 2021-03-10 16:43:00 [facility] POCT-GLUCOSE METER 2021-03-10 12:45:00 [facility] [place] ERCP 2021-03-10 12:02:00 Desiree Duggan [facility] ERCP,PAPILLOTOMY 2021-03-10 11:31:00 Kathy [facility] PROCEDURE W/ C-ARM 2021-03-10 11:31:00 Kathy [facility] ERCP,BALLOON SWEEPING 2021-03-10 11:31:00 Kathy [facility] POCT-GLUCOSE METER 2021-03-10 09:07:00 [facility] CBC (HEMOGRAM ONLY) 2021-03-10 04:50:00 Clive Alfredo [facility] COMPREHENSIVE METABOLIC 2021-03-10 04:50:00 [place] [facility] HEMOGLOBIN A1C 2021-03-10 04:50:00 [facility] POCT-GLUCOSE METER 2021-03-09 23:54:00 [facility] SARS-COV2/RT-PCR ([facility] & 2021-03-09 20:13:00 Desiree Duggan [facility] - REF LABS) [facility] POCT-GLUCOSE METER 2021-03-09 17:22:00 [facility] MR ABDOMEN WITHOUT IV 2021-03-09 15:38:00 [facility] CONTRAST MRCP [facility] POCT-GLUCOSE METER 2021-03-09 12:22:00 [facility] URINALYSIS W/ REFLEX 2021-03-09 10:56:00 [facility] URINE CULTURE [facility] HEPATIC FUNCTION PANEL 2021-03-09 05:25:00 [facility] PROTHROMBIN TIME/INR 2021-03-09 05:25:00 [facility] MAGNESIUM 2021-03-09 05:25:00 [facility] BASIC METABOLIC PANEL (7) 2021-03-09 05:25:00 [facility] I [facility] CBC W/PLT COUNT & AUTO 2021-03-09 05:25:00 [facility] DIFFERENTIAL [facility] HEMOGLOBIN A1C 2021-03-09 05:25:00 [facility] MRI Brain wo contrast 2018-02-08 00:00:00 [facility] [id number] Physicians MRI Brain w/wo contrast 2018-02-01 00:00:00 [facility] [id number] Physicians History of Gallbladder [facility] surgery Physicians Plan of Care Planned Activity Planned Date Details Comments Source Future Scheduled 2021-09-09 Hemoglobin A1c [facility] - Test 00:00:00 [facility] Center (procedure) [code = 61829214] Future Scheduled 2021-09-[address] [facility] - Test 00:00:00 measurement Medical Center (procedure) [code = 06836290] Future Scheduled 2021-09-[address] [facility] [facility] - Test 00:00:00 measurement Medical Center (procedure) [code = 67598890] Future Scheduled 2021-09-[address] [facility] - Test 00:00:00 measurement Medical Center (procedure) [code = 34792340] Future Scheduled 2021-05-13 INFLUENZA VACCINE (#1) C [...] [facility]ukes - Test 00:00:00 (1 of 1 [facility] [id number] PCV13) [code = PNEUMOCOCCAL 65+ YRS (1 of 1 - [id number]_Utqdzxt PCV13)] Future Scheduled 2013 PNEUMOCOCCAL 65+ YRS [facility] - Test 00:00:00 (1 of 1 [facility] [id number]_Qajrnvx PCV13) [code = PNEUMOCOCCAL 65+ YRS (1 of 1 - ESTZ11_Wrpgfsz PCV13)] Future Scheduled 2013 PNEUMOCOCCAL 65+ Y[facility] - Test 00:00:00 (1 of 1 [facility] NGCN70_Xpfrrui PCV13) [code = PNEUMOCOCCAL 65+ YRS (1 of 1 - LMMQ94_Aoduwwo PCV13)] Future Scheduled 2013 PNEUMOCOCCAL 65+ Y[facility] - Test 00:00:00 (1 of 1 [facility] EHSU75_Fusynpl PCV13) [code = PNEUMOCOCCAL 65+ YRS (1 of 1 - SDKU65_Afubwfr PCV13)] Future Scheduled 2004-10-14 MEDICARE ANNUAL CHI [...] 00:00:00 examination Medical Center (regime/therapy) [code = 624306787] Future Scheduled 1958 Urine screening [facility] - Test 00:00:00 protein (procedure) Medical Center [code = 000858043] Future Scheduled 1960 DIABETIC EYE EXAM [facility] - Test 00:00:00 [code = DIABETIC EYE Medical Center EXAM] Future Scheduled [address] [facility] - Test 00:00:00 examination Medical Center (regime/therapy) [code = 641008315] Future Scheduled 1958 Urine screening [facility] - Test 00:00:00 protein (procedure) Medical Center [code = 594388852] Future Scheduled 1960 DIABETIC EYE EXAM [facility] - Test 00:00:00 [code = DIABETIC EYE Medical Center EXAM] Future Scheduled [address] [facility] - Test 00:00:00 examination Medical Center (regime/therapy) [code = 826121430] Future Scheduled 1958 Urine screening [facility] - Test 00:00:00 protein (procedure) Medical Center [code = 223439207] Future Scheduled 1958 DIABETIC EYE EXAM [facility] - Test 00:00:00 [code = DIABETIC EYE Medical Center EXAM] Future Scheduled [address] [facility] - Test 00:00:00 examination Medical Center (regime/therapy) [code = 058450212] Future Scheduled 1958 Urine screening [facility] - Test 00:00:00 protein (procedure) Medical Center [code = 922435690] Future Scheduled [address] [facility] - Test 00:00:00 malignant neoplasm of Medica l Center breast (procedure) [code = 724978826] Future Scheduled [address] [facility] - Test 00:00:00 malignant neoplasm of Medica l Center colon (procedure) [code = 266355839] Future Scheduled [address] [facility] - Test 00:00:00 malignant neoplasm of Medica l Center breast (procedure) [code = 511505293] Future Scheduled [address] [facility] - Test 00:00:00 malignant neoplasm of Medica l Center colon (procedure) [code = 224877118] Future Scheduled [address] [facility] - Test 00:00:00 malignant neoplasm of Medica l Center breast (procedure) [code = 833305953] Future Scheduled [address] [facility] - Test 00:00:00 malignant neoplasm of Medica l Center colon (procedure) [code = 869310655] Future Scheduled [address] [facility] - Test 00:00:00 malignant neoplasm of Medica l Center breast (procedure) [code = 395131707] Future Scheduled [address] [facility] - Test 00:00:00 malignant neoplasm of Medica l Center colon (procedure) [code = 222257781] Encounters Start End Encounter Admission Attending Care Care Encounter Source Date/Time Date/Time Type Type Clinicians Facility Department ID 2021-06-21 Inpatient ER ADIO, [facility] [id number] [facility] 02:39:12 TITILOLA 2021-08-10 2021-08-10 Outpatient MCKAY, BCM [facility] [id number] [facility] 10:38:01 17:18:04 LEV Woodard e of Medicin e 2021-07-24 2021-07-24 Emergency X [facility] ERT [id number] Univers 10:12:00 14:31:00 GLENN gail of [facility] 2021-07-24 2021-07-24 Emergency [facility] [id number] Univers 10:12:00 14:31:00 Glenn RORYSHIRA 350.1.13.10 i ty of CRETE 4.2.7.2.686 [facility] [id number] [facility] 084 Branch 2021-07-24 2021-07-24 Orders Doctor HEAVEN [id number] Univers 00:00:00 00:00:00 Only Unassigned, ARIS 350.1.13.[address] [facility] 4.2.7.2.686 [facility] [id number] [facility] 009 Branch 2021-05-04 2021-05-07 Hospital ER Cherie Faustin [facility] [id number] 17:37:00 10:59:00 [facility] 2021-05-06 2021-05-06 Anesthesia Denise Quispe [facility] [id number] 15:10:00 16:27:00 Event Jm Rushing [facility] 2021-05-06 2021-05-06 Surgery Nikita [facility] [id number] 13:00:00 14:30:00 [facility] 2021-05-05 2021-05-05 Travel [facility] [id number] [facility] 00:[facility]00 00:00:00 [facility] 2021-05-04 2021-05-04 Outpatient [facility] [id number] [facility] 00:00:00 23:59:00 Colleg e of Medicin e 2021-05-04 2021-05-04 Emergency ER [facility] Emergency [id number] [facility] 17:24:00 17:24:00 2021-05-04 2021-05-04 Orders [facility] [id number] 00:00:00 00:00:00 Only [facility] 2021-05-04 2021-05-04 Travel [facility] [id number] [facility] 00:[facility]:00 00:00:00 [facility] 2021-05-01 2021-05-01 Emergency E EVANGELINA, MHBL MHBL [id number] [facility]BL 16:21:00 22:56:00 SABHA 2021-03-13 2021-03-13 Telephone Ezequiel [facility] [id number] [facility] [address] 00:00:00 00:00:00 Tyesha Galina [facility] 2021-03-08 2021-03-11 Hospital ER Curtis BurnettKenrick [facility] [id number] [facility] [address] 23:13:00 11:35:00 Encounter Bret Schuster [facility] 2021-03-10 2021-03-10 Surgery Kathy [facility] [id number] [facility] [address] 11:00:00 12:30:[address] [facility] [facility] 2021-03-10 2021-03-10 Anesthesia Josef [facility] [id number] 11:36:00 12:27:00 Event Graciela jessica - [facility] al Varnell 2018-02-01 2018-02-01 Appointjeffy OSORIO [facility] Neurology [id number] Univers 08:00:00 08:00:00 HOLLIE Adair ity of CHRISTINA, M.D. [place] M.D. Physici ans Results Test Description Test Time Test Comments Results Result Comments Source COMP. METABOLIC PANEL (55196) 2021-07-24 17:14:29 Test Item Value Reference Range Interpretation Comme nts NA (test code = 3484733761) 139 mmol/L 135-145 K (test code = 2089985799) 4.3 mmol/L 3.5-5.0 CL (test code = 3039617394) 104 mmol/L 98-108 CO2 TOTAL (test code = 1057666348) 24 mmol/L 23-31 AGAP (test code = 0185437797) 2-16 BUN (test code = 9747008942) 18 mg/dL 7-23 GLUCOSE (test code = 0143761730) 104 mg/dL 70-110 CREATININE (test code = 1.39 mg/dL 0.50-1.04 H 9145928175) TOTAL BILI (test code = 0.4 mg/dL 0.1-1.9 8134565194) CALCIUM (test code = 3923721615) 9.6 mg/dL 8.6-10.6 T PROTEIN (test code = 3930631380) 8.4 g/dL 6.3-8.2 H ALBUMIN (test code = 6128678228) 4.6 g/dL 3.5-5.0 ALK PHOS (test code = 1888717156) 93 U/L 34-122 ALTv (test code = 1742-6) 44 U/L 5-35 H AST(SGOT) (test code = 5381003662) 48 U/L 13-40 H eGFR (test code = 1236585357) mL/min/1.73m2 TORRES (test code = TORRSE) Association of Glomerular Filtration Rate (GFR) and [...] tests). Lab Interpretation (test code = Abnormal 50076-2) [facility]13[facility]49 Test Item Value Reference Range Interpretation Comments LIPASE (test code = 3707812043) 266 U/L 0-220 H Lab Interpretation (test code = Abnormal 33463-5) [facility] [id number] 17:03:27 Test Item Value Reference Range Interpretation Comments WBC (test code = See_Comment [Automated 2290-2) message] The sy stem which generated this result transmitted reference range : 4.30 - 11.10 10*3/?L. The reference range was not used to interpret this result as normal/abnormal . RBC (test code = See_Comment [Automated 299-8) message] The sy stem which generated this [...] RDW-SD (test code = 48.4 fL 39.0-49.9 22774-7) RDW-CV (test code = 13.8 % 12.0-15.5 788-0) PLT (test code = See_Comment [Automated 127-3) message] The sy stem which generated this result transmitted reference range : 166 - 358 10*3/ ?L. The reference r becca was not used to interpret this result as normal/abnormal . MPV (test code = 9.1 fL 9.5-12.9 L 32571-0) NRBC/100 WBC (test See_Comment [Automat ed code = [id number]) message] The system which generated this result transmitted reference range : 0.0 - 10.0 /100 WBCs. The refer ence range was not u sed to interpret th is result as normal/abnormal . NRBC x10^3 (test code <0.01 See_Comment [Auto mated = [id number]) message] The s ystem which generated this result transmitted reference range : 10*3/?L. The reference range was not used to interpret this result as normal/abnormal . GRAN MAT (NEUT) % 64.8 % (test code = 770-8) IMM GRAN % (test code 0.90 % = 8178643623) LYMPH % (test code = 24.2 % 736-9) MONO % (test code = 8.2 % 5905-5) EOS % (test code = 1.4 % 713-8) BASO % (test code = 0.5 % 706-2) GRAN MAT x10^3(ANC) 5.59 10*3/uL 1.88-7.09 (test code = 3913547455) IMM GRAN x10^3 (test 0.08 10*3/uL 0.00-0.06 H code = 1836647413) LYMPH x10^3 (test code 2.09 10*3/uL 1.32-3.29 = 731-0) MONO x10^3 (test code 0.71 10*3/uL 0.33-0.92 = 742-7) EOS x10^3 (test code = 0.12 10*3/uL 0.03-0.39 711-2) BASO x10^3 (test code 0.04 10*3/uL 0.01-0.07 = 704-7) Lab Interpretation Abnormal (test code = 87788-7) [facility] metabolic [id number] 07:08:00 Test Item Value Reference Range Interpretation Comments Sodium (test code = 139 meq/L 497-685 5588-2) Potassium (test 4.1 meq/L 3.5-5.1 code = 2823-3) Chloride (test code 107 meq/L 98-107 = 2075-0) CO2 (test code = 25 meq/L 22-29 2027-9) BUN (test code = 13 mg/dL 7-21 3094-0) Creatinine (test 0.97 mg/dL 0.57-1.25 code = 2160-0) Glucose (test code 80 mg/dL 70-105 = 2345-7) Calcium (test code 8.9 mg/dL 8.4-10.2 = 89613-7) EGFR (test code = 56 mL/min/1.[address] [place] [address]-4) NOT ACCURATE CREATININE CLEARANCE IN PREDICTING GLOMERULAR FILTRATION RATE . ESTIMATED GFR I S NOT APPLICABLE FOR DIALYSIS PATIEN TORRES (test code = Artist'S Representative ID - TORRES) TOÑITO Camacho [facility] [id number] 07:08:00 Test Item Value Reference Range Interpretation Comments Protein, Total (test 6.9 See_Comment [Autom ated code = 2885-2) message] The system which generated this result transmit lane reference range : 6.0 - 8.3 gm/dL . The reference range was not u sed to interpret th is result as normal/abnormal . Albumin (test code = 3.6 g/dL 3.5-5 48076-4) Total Bilirubin (test 0.3 mg/dL 0.2-1.2 code = 1975-2) Bilirubin, Direct 0.2 mg/dL 0.1-0.5 (test code = 1967-7) Alkaline Phosphatase 56 U/L 40-150 (test code = 6768-6) AST (test code = 37 U/L 5-34 H 1920-8) ALT (test code = 50 U/L 6-55 2-6) TORRES (test code = TORRES) Artist'S Representative ID - TOÑITO Camacho Lab Interpretation Abnormal (test code = 49198-7) [facility] [id number] 07:08:00 Test Item Value Reference Range Interpretation Comments Sodium (test code = 139 meq/L 393-748 6900-2) Potassium (test 4.1 meq/L 3.5-5.1 code = 2823-3) Chloride (test code 107 meq/L 98-107 = 2075-0) CO2 (test code = 25 meq/L -2027-9) BUN (test code = 13 mg/dL 7-21 3094-0) Creatinine (test 0.97 mg/dL 0.57-1.25 code = 2160-0) Glucose (test code 80 mg/dL 70-105 = 2345-7) Calcium (test code 8.9 mg/dL 8.4-10.2 = 61083-9) EGFR (test code = 56 mL/min/1.[address] [place] [address]-3) NOT ACCURATE CREATININE CLEARANCE IN PREDICTING GLOMERULAR FILTRATION RATE . ESTIMATED GFR I S NOT APPLICABLE FOR DIALYSIS PATIEN TORRES (test code = Artist'S Representative ID - TORRES) TOÑITO Camacho [facility] [id number] 07:08:00 Test Item Value Reference Range Interpretation Comments Protein, Total (test 6.9 See_Comment [Autom ated code = 2885-2) message] The system which generated this result transmit lane reference range : 6.0 - 8.3 gm/dL . The reference range was not u sed to interpret th is result as normal/abnormal . Albumin (test code = 3.6 g/dL 3.5-5 63363-0) Total Bilirubin (test 0.3 mg/dL 0.2-1.2 code = 1975-2) Bilirubin, Direct 0.2 mg/dL 0.1-0.5 (test code = 1968-7) Alkaline Phosphatase 56 U/L 40-150 (test code = 6768-6) AST (test code = 37 U/L 5-34 H 1920-8) ALT (test code = 50 U/L 6-55 1742-6) TORRES (test code = TORRES) Artist'S Representative ID - TOÑITO Camacho Lab Interpretation Abnormal (test code = 14259-1) [facility] [id number] 07:08:00 Test Item Value Reference Range Interpretation Comments Sodium (test code = 139 meq/L 950-240 2887-2) Potassium (test 4.1 meq/L 3.5-5.1 code = 2823-3) Chloride (test code 107 meq/L 98-107 = 2075-0) CO2 (test code = 25 meq/L 22-29 2027-9) BUN (test code = 13 mg/dL 7-21 3094-0) Creatinine (test 0.97 mg/dL 0.57-1.25 code = 2160-0) Glucose (test code 80 mg/dL 70-105 = 2345-7) Calcium (test code 8.9 mg/dL 8.4-10.2 = 83388-4) EGFR (test code = 56 mL/min/1.[address] [place] [address]-0) NOT ACCURATE CREATININE CLEARANCE IN PREDICTING GLOMERULAR FILTRATION RATE . ESTIMATED GFR I S NOT APPLICABLE FOR DIALYSIS PATIEN TORRES (test code = Artist'S Representative ID - TORRES) TOÑITO Camacho [facility] [id number] 07:08:00 Test Item Value Reference Range Interpretation Comments Protein, Total (test 6.9 See_Comment [Autom ated code = 2885-2) message] The system which generated this result transmit lane reference range : 6.0 - 8.3 gm/dL . The reference range was not u sed to interpret th is result as normal/abnormal . Albumin (test code = 3.6 g/dL 3.5-5 50274-2) Total Bilirubin (test 0.3 mg/dL 0.2-1.2 code = 1974-2) Bilirubin, Direct 0.2 mg/dL 0.1-0.5 (test code = 1968-7) Alkaline Phosphatase 56 U/L 40-150 (test code = 6768-6) AST (test code = 37 U/L 5-34 H 1920-8) ALT (test code = 50 U/L 6-55 1742-6) TORRES (test code = TORRES) Artist'S Representative ID - TOÑITO Camacho Lab Interpretation Abnormal (test code = 22479-8) [facility] [id number] 07:08:00 Test Item Value Reference Range Interpretation Comments Sodium (test code = 139 meq/L 392-671 4282-2) Potassium (test 4.1 meq/L 3.5-5.1 code = 2823-3) Chloride (test code 107 meq/L 98-107 = 2075-0) CO2 (test code = 25 meq/L 22-2027-) BUN (test code = 13 mg/dL 7-21 3094-0) Creatinine (test 0.97 mg/dL 0.57-1.25 code = 2160-0) Glucose (test code 80 mg/dL 70-105 = 2345-7) Calcium (test code 8.9 mg/dL 8.4-10.2 = 86421-1) EGFR (test code = 56 mL/min/1.[address] [place] [address]-2) NOT ACCURATE CREATININE CLEARANCE IN PREDICTING GLOMERULAR FILTRATION RATE . ESTIMATED GFR I S NOT APPLICABLE FOR DIALYSIS PATIEN TORRES (test code = Artist'S Representative ID - TORRES) TOÑITO Camacho [facility] [id number] 07:08:00 Test Item Value Reference Range Interpretation Comments Protein, Total (test 6.9 See_Comment [Autom ated code = 2885-2) message] The system which generated this result transmit lane reference range : 6.0 - 8.3 gm/dL . The reference range was not u sed to interpret th is result as normal/abnormal . Albumin (test code = 3.6 g/dL 3.5-5 54441-2) Total Bilirubin (test 0.3 mg/dL 0.2-1.2 code = 1975-2) Bilirubin, Direct 0.2 mg/dL 0.1-0.5 (test code = 1968-7) Alkaline Phosphatase 56 U/L 40-150 (test code = 6768-6) AST (test code = 37 U/L 5-34 H 1920-8) ALT (test code = 50 U/L 6-55 1742-6) TORRES (test code = TORRES) Artist'S Representative ID - RADHAJOVANNI Doug Lab Interpretation Abnormal (test code = 07752-1) [facility] [id number] 07:08:00 Test Item Value Reference Range Interpretation Comments SODIUM (BEAKER) 139 meq/L 136-145 (test code = 381) POTASSIUM (BEAKER) 4.1 meq/L 3.5-5.1 (test code = 379) CHLORIDE (BEAKER) 107 meq/L 98-107 (test code = 382) CO2 (BEAKER) (test 25 meq/L code = 355) BLOOD UREA NITROGEN 13 [...] S NOT APPLICABLE FOR DIALYSIS PATIEN TS. Artist'S Representative ID - PIAYA LHEPATIC FUNCTION [id number] 07:08:00 Test Item Value Reference Range Interpretation [...] (test code = 50 U/L 6-55 347) Artist'S Representative ID - PIJOVANNI LCBC with platelet count + automated [id number] 06:01:00 Test Item Value Reference Range Interpretation Comments WBC (test code = 6690-2) 7.9 See_Comment [A utomated message] The system [employer] generated this result transmitted ref erence range: 3.5 - 10 .5 K/L. The refe rence range was not u sed to interpret this result as normal/abnor mal. RBC (test code = 789-8) 3.22 See_Comment L [Au tomated message] The system [employer] generated this result transmitted ref erence range: 3.93 - 5 .22 M/L. The refe rence range was not u sed to interpret this result as normal/abnor mal. MCHC (test code = 786-4) 31.8 See_Comment L [A utomated message] The system [employer] generated this result transmitted ref erence range: [...] See_Comment [Aut omated message] 777-3) The system [employer] generated this result transmitted ref erence range: 150 - 45 0 K/CU MM. The referen ce range was not u sed to interpret this result as normal/abnor mal. MPV (test code = 8.9 fL 9.4-12.3 L 46673-1) nRBC (test code = 413) 0 See_Comment [Aut omated message] The system [employer] generated this result transmitted ref erence range: [...] See_Comment [Aut omated message] 670) The system [employer] generated this result transmitted ref erence range: 1.56 - 6 .13 K/L. The refe rence range was not u sed to interpret this result as normal/abnor mal. # Lymphs (test code = 2.20 See_Comment [Auto mated message] 414) The system [employer] generated this result transmitted ref erence range: 1.18 - 3 .74 K/L. The refe rence range was not u sed to interpret this result as normal/abnor mal. # Monos (test code = 0.54 See_Comment H [Autom ated message] 415) The system [employer] generated this result transmitted ref erence range: 0.24 - 0 .36 K/L. The refe rence range was not u sed to interpret this result as normal/abnor mal. # Eos (test code = 416) 0.08 See_Comment [Au tomated message] The system [employer] generated this result transmitted ref erence range: 0.04 - 0 .36 K/L. The refe rence range was not u sed to interpret this result as normal/abnor mal. # Baso (test code = 417) 0.03 See_Comment [A utomated message] The system [employer] generated this result transmitted ref erence range: 0.01 - 0 .08 K/L. The refe rence range was not u sed to interpret this result as normal/abnor mal. Immature 0 % 0-1 Granulocytes-Relative (test code = 2801) Lab Interpretation (test Abnormal code = 61168-6) [facility] with platelet count + automated [id number] 06:01:00 Test Item Value Reference Range Interpretation Comments WBC (test code = 6690-2) 7.9 See_Comment [A utomated message] The system [employer] generated this result transmitted ref erence range: 3.5 - 10 .5 K/L. The refe rence range was not u sed to interpret this result as normal/abnor mal. RBC (test code = 789-8) 3.22 See_Comment L [Au tomated message] The system [employer] generated this result transmitted ref erence range: 3.93 - 5 .22 M/L. The refe rence range was not u sed to interpret this result as normal/abnor mal. MCHC (test code = 786-4) 31.8 See_Comment L [A utomated message] The system [employer] generated this result transmitted ref erence range: [...] See_Comment [Aut omated message] 777-3) The system [employer] generated this result transmitted ref erence range: 150 - 45 0 K/CU MM. The referen ce range was not u sed to interpret this result as normal/abnor mal. MPV (test code = 8.9 fL 9.4-12.3 L 58768-8) nRBC (test code = 413) 0 See_Comment [Aut omated message] The system [employer] generated this result transmitted ref erence range: [...] See_Comment [Aut omated message] 670) The system [employer] generated this result transmitted ref erence range: 1.56 - 6 .13 K/L. The refe rence range was not u sed to interpret this result as normal/abnor mal. # Lymphs (test code = 2.20 See_Comment [Auto mated message] 414) The system [employer] generated this result transmitted ref erence range: 1.18 - 3 .74 K/L. The refe rence range was not u sed to interpret this result as normal/abnor mal. # Monos (test code = 0.54 See_Comment H [Autom ated message] 415) The system [employer] generated this result transmitted ref erence range: 0.24 - 0 .36 K/L. The refe rence range was not u sed to interpret this result as normal/abnor mal. # Eos (test code = 416) 0.08 See_Comment [Au tomated message] The system [employer] generated this result transmitted ref erence range: 0.04 - 0 .36 K/L. The refe rence range was not u sed to interpret this result as normal/abnor mal. # Baso (test code = 417) 0.03 See_Comment [A utomated message] The system [employer] generated this result transmitted ref erence range: 0.01 - 0 .08 K/L. The refe rence range was not u sed to interpret this result as normal/abnor mal. Immature 0 % 0-1 Granulocytes-Relative (test code = 2801) Lab Interpretation (test Abnormal code = 64228-4) [facility] with platelet count + automated [id number] 06:01:00 Test Item Value Reference Range Interpretation Comments WBC (test code = 6690-2) 7.9 See_Comment [A utomated message] The system [employer] generated this result transmitted ref erence range: 3.5 - 10 .5 K/L. The refe rence range was not u sed to interpret this result as normal/abnor mal. RBC (test code = 789-8) 3.22 See_Comment L [Au tomated message] The system [employer] generated this result transmitted ref erence range: 3.93 - 5 .22 M/L. The refe rence range was not u sed to interpret this result as normal/abnor mal. MCHC (test code = 786-4) 31.8 See_Comment L [A utomated message] The system [employer] generated this result transmitted ref erence range: [...] code = 282 See_Comment [Aut omated message] 977-3) The system [employer] generated this result transmitted ref erence range: 150 - 45 0 K/CU MM. The referen ce range was not u sed to interpret this result as normal/abnor mal. MPV (test code = 8.9 fL 9.4-12.3 L 76060-4) nRBC (test code = 413) 0 See_Comment [Aut omated message] The system [employer] generated this result transmitted ref erence range: [...] See_Comment [Aut omated message] 670) The system [employer] generated this result transmitted ref erence range: 1.56 - 6 .13 K/L. The refe rence range was not u sed to interpret this result as normal/abnor mal. # Lymphs (test code = 2.20 See_Comment [Auto mated message] 414) The system [employer] generated this result transmitted ref erence range: 1.18 - 3 .74 K/L. The refe rence range was not u sed to interpret this result as normal/abnor mal. # Monos (test code = 0.54 See_Comment H [Autom ated message] 415) The system [employer] generated this result transmitted ref erence range: 0.24 - 0 .36 K/L. The refe rence range was not u sed to interpret this result as normal/abnor mal. # Eos (test code = 416) 0.08 See_Comment [Au tomated message] The system [employer] generated this result transmitted ref erence range: 0.04 - 0 .36 K/L. The refe rence range was not u sed to interpret this result as normal/abnor mal. # Baso (test code = 417) 0.03 See_Comment [A utomated message] The system [employer] generated this result transmitted ref erence range: 0.01 - 0 .08 K/L. The refe rence range was not u sed to interpret this result as normal/abnor mal. Immature 0 % 0-1 Granulocytes-Relative (test code = 2801) Lab Interpretation (test Abnormal code = 03446-8) [facility] with platelet count + automated [id number] 06:01:00 Test Item Value Reference Range Interpretation Comments WBC (test code = 6690-2) 7.9 See_Comment [A utomated message] The system [employer] generated this result transmitted ref erence range: 3.5 - 10 .5 K/L. The refe rence range was not u sed to interpret this result as normal/abnor mal. RBC (test code = 789-8) 3.22 See_Comment L [Au tomated message] The system [employer] generated this result transmitted ref erence range: 3.93 - 5 .22 M/L. The refe rence range was not u sed to interpret this result as normal/abnor mal. MCHC (test code = 786-4) 31.8 See_Comment L [A utomated message] The system [employer] generated this result transmitted ref erence range: [...] See_Comment [Aut omated message] 777-3) The system [employer] generated this result transmitted ref erence range: 150 - 45 0 K/CU MM. The referen ce range was not u sed to interpret this result as normal/abnor mal. MPV (test code = 8.9 fL 9.4-12.3 L 73423-8) nRBC (test code = 413) 0 See_Comment [Aut omated message] The system [employer] generated this result transmitted ref erence range: [...] See_Comment [Aut omated message] 670) The system [employer] generated this result transmitted ref erence range: 1.56 - 6 .13 K/L. The refe rence range was not u sed to interpret this result as normal/abnor mal. # Lymphs (test code = 2.20 See_Comment [Auto mated message] 414) The system [employer] generated this result transmitted ref erence range: 1.18 - 3 .74 K/L. The refe rence range was not u sed to interpret this result as normal/abnor mal. # Monos (test code = 0.54 See_Comment H [Autom ated message] 415) The system [employer] generated this result transmitted ref erence range: 0.24 - 0 .36 K/L. The refe rence range was not u sed to interpret this result as normal/abnor mal. # Eos (test code = 416) 0.08 See_Comment [Au tomated message] The system [employer] generated this result transmitted ref erence range: 0.04 - 0 .36 K/L. The refe rence range was not u sed to interpret this result as normal/abnor mal. # Baso (test code = 417) 0.03 See_Comment [A utomated message] The system [employer] generated this result transmitted ref erence range: 0.01 - 0 .08 K/L. The refe rence range was not u sed to interpret this result as normal/abnor mal. Immature 0 % 0-1 Granulocytes-Relative (test code = 2801) Lab Interpretation (test Abnormal code = 38191-8) [facility] W/PLT COUNT & AUTO [id number] 06:01:00 Test Item Value Reference Range Interpretation [...] 0-1 PERCENT (BEAKER) (test code = 2801) [facility] 12 [id number] 06:47:19Interface, External Ris In - 05/05/2021 6:47 AM CDTVentricular Rate 91 BPMAtrial Rate 91 BPMP-R Interval 126 msQRS Duration 78 msQ-T Interval 352 msQTC Calculation(Bazett) 432 msP [place] 44 degreesR [place] 28 degreesT [place] 39 degreesNormal sinus rhythmNormal ECGNo previous ECGs availableConfirmed by MD BELLAMY JOSEPH P ([id number]) on 05/05/2021 6:47:15 [facility] 12 [id number] 06:47:19Interface, External Ris In - 05/05/2021 6:47 AM CDTVentricular Rate 91 BPMAtrial Rate 91 BPMP-R Inte rval 126 msQRS Duration 78 msQ-T Interval 352 msQTC Calculation(Bazett) 432 msP [place] 44 degreesR [place] 28 degreesT [place] 39 degreesNormal sinus rhythmNormal ECGNo previous ECGs availableConfirmed by MD BELLAMY JOSEPH P ([id number]) on 05/05/2021 6:47:15 [place] [address] [id number] 06:47:19Interface, External Ris In - 05/05/2021 6:47 AM CDTVentricular Rate 91 BPMAtrial Rate 91 BPMP-R Interval 126 msQRS Duration 78 msQ-T Interval 352 msQTC Calculation(Bazett) 432 msP [place] 44 degreesR [place] 28 degreesT [place] 39 degreesNormal sinus rhythmNormal ECGNo previous ECGs availableConfirmed by OKSANA LANDRUM MD, TEMI Mcnulty ([id number]) on 05/05/2021 6:47:15 [facility] 12 [id number] 06:47:19Interface, External Ris In - 05/05/2021 6:47 AM CDTVentricular Rate 91 BPMAtrial Rate 91 BPMP-R Interval 126 msQRS Duration 78 msQ-T Interval 352 msQTC Calculation(Bazett) 432 msP [place] 44 degreesR [place] 28 degreesT [place] 39 degreesNormal sinus rhythmNormal ECGNo previous ECGs availableConfirmed by MD BELLAMY JOSEPH P ([id number]) on 05/05/2021 6:47:15 [facility], [id number] 06:17:00 Test Item Value Reference Range Interpretation Comments ABO Grouping (test code = 2588) O Rh Factor (test code = 2589) POS [facility], [id number] 06:17:00 Test Item Value Reference Range Interpretation Comments ABO Grouping (test code = 2588) O Rh Factor (test code = 2589) [facility], [id number] 06:17:00 Test Item Value Reference Range Interpretation Comments ABO Grouping (test code = 2588) O Rh Factor (test code = 2589) [facility], [id number] 06:17:00 Test Item Value Reference Range Interpretation Comments ABO Grouping (test code = 2588) O Rh Factor (test code = 2589) [facility] ([facility]) 2021-05-05 05:01:00 Test Item Value Reference Range Interpretation Comments ABO/RH AUTOMATED (BEAKER) (test O POSITIVE code = 2260) Ab Scrn (test code = 890-4) NEGATIVE [facility] ([facility]) 2021-05-05 05:01:00 Test Item Value Reference Range Interpretation Comments ABO/RH AUTOMATED (BEAKER) (test O POSITIVE code = 2260) Ab Scrn (test code = 890-4) NEGATIVE [facility] ([facility]) 2021-05-05 05:01:00 Test Item Value Reference Range Interpretation Comments ABO/RH AUTOMATED (BEAKER) (test O POSITIVE code = 2260) Ab Scrn (test code = 890-4) NEGATIVE [facility] ([facility]) 2021-05-05 05:01:00 Test Item Value Reference Range Interpretation Comments ABO/RH AUTOMATED (BEAKER) (test O POSITIVE code = 2260) Ab Scrn (test code = 890-4) NEGATIVE [facility]/[id number] 04:35:00 Test Item Value Reference Interpretation Comments [...] valves. Lab Interpretation Normal (test code = 95687-3) [facility][id number] 04:35:00 Test Item Value Reference Interpretation Comments [...] valves. Lab Interpretation Normal (test code = 03223-6) [facility]/[id number] 04:35:00 Test Item Value Reference Interpretation Comments [...] valves. Lab Interpretation Normal (test code = 26856-7) [facility][id number] 04:35:00 Test Item Value Reference Interpretation Comments Range Protime (test code = 13.7 See_Comment [Autom ated 1722-2) message] The system which generated this result transmitted reference range : 11.9 - 14.2 seconds. The reference range was not used to interpret this result as normal/abnormal . INR (test code = 1.07 See_Comment [Automated 6341-6) message] The system which generated this result [...] valves. Lab Interpretation Normal (test code = 53474-5) [facility] CampusPROT[facility]OM[facility] TIME/[id number] 04:35:00 Test Item Value Reference Range Interpretation Comments PROTIME (BEAKER) 13.7 seconds 11.9-14.2 (test code = 759) INR (BEAKER) (test 1.07 See_Comment [Automat ed message] code = 370) The system [employer] generated this result transmitted ref erence range: <=5.90. The reference range was not used to int erpret this result as normal/abnormal . RECOMMENDED COUMADIN/WARFARIN INR THERAPY RANGESSTANDARD DOSE: 2.0 - 3.0 Includes: PROPHYLAXIS forvenous thrombosis, systemic embolization; TREATMENT for venous thrombosis and/or pulmonary embolus.HIGH RISK: Target INR is 2.5-3.5 for patients with mechanical heart valves.High Sensitivity Troponin [id number] 01:56:00 Test Item Value Reference Range Interpretation Comments Troponin I HS <4 See_Comment [Automated (test code = message] The 19208-3) system which generated this result transmitted reference range : <=17 pg/ml. The reference range was not used to interpret this result as normal/abnormal . TORRES (test code = Artist'S Representative ID - TORRES) DBThe JOB PLACEMENT OFFICER STAT High Sensitivity Troponin-I results should be used in conjunction with other diagnostic information such as ECG, clinical observations and information, and patient symptoms to aid in the diagnosis of MS. Lab Interpretation Normal (test code = 67807-8) [facility] [id number] 01:56:00 Test Item Value Reference Range Interpretation Comments Troponin I HS <4 See_Comment [Automated (test code = message] The 43974-2) system which generated this result transmitted reference range : <=17 pg/ml. The reference range was not used to interpret this result as normal/abnormal . TORRES (test code = Artist'S Representative ID - TORRES) [place] JOB PLACEMENT OFFICER STAT High Sensitivity Troponin-I results should be used in conjunction with other diagnostic information such as ECG, clinical observations and information, and patient symptoms to aid in the diagnosis of MS. Lab Interpretation Normal (test code = 34262-2) [facility] Troponin [id number] 01:56:00 Test Item Value Reference Range Interpretation Comments Troponin I HS <4 See_Comment [Automated (test code = message] The 29775-8) system which generated this result transmitted reference range : <=17 pg/ml. The reference range was not used to interpret this result as normal/abnormal . TORRES (test code = Artist'S Representative ID - TORRES) DBThe JOB PLACEMENT OFFICER STAT High Sensitivity Troponin-I results should be used in conjunction with other diagnostic information such as ECG, clinical observations and information, and patient symptoms to aid in the diagnosis of MS. Lab Interpretation Normal (test code = 85129-1) [facility] Troponin [id number] 01:56:00 Test Item Value Reference Range Interpretation Comments Troponin I HS <4 See_Comment [Automated (test code = message] The 60271-5) system which generated this result transmitted reference range : <=17 pg/ml. The reference range was not used to interpret this result as normal/abnormal . TORRES (test code = Artist'S Representative ID - TORRES) DBThe JOB PLACEMENT OFFICER STAT High Sensitivity Troponin-I results should be used in conjunction with other diagnostic information such as ECG, clinical observations and information, and patient symptoms to aid in the diagnosis of MS. Lab Interpretation Normal (test code = 89480-2) [facility] TROPONIN [id number] 01:56:00 Test Item Value Reference Range Interpretation Comments HIGH SENSITIVITY < pg/ml See_Comment [Automated message] TROPONIN I (test code = The system which 2944622) generated this result transmitted ref erence range: <=17. Th e reference range was not used to interpr et this result as normal/abnormal . Artist'S Representative ID - DBThe JOB PLACEMENT OFFICER STAT High Sensitivity Troponin-I results should be used in conjunctionwith other diagnostic information such as ECG, clinical observations and information, and patient symptoms to aid in the diagnosis of MS.Ketones, [id number] 01:40:00 Test Item Value Reference Range Interpretation Comments Ketones, Blood (test code = 1103) 0.4 mmol/L <0.4 H Lab Interpretation (test code = Abnormal 17710-0) [facility] CampusKetana, [id number] 01:40:00 Test Item Value Reference Range Interpretation Comments Ketones, Blood (test code = 1103) 0.4 mmol/L <0.4 H Lab Interpretation (test code = Abnormal 65946-7) [facility] CampusK[facility], [id number] 01:40:00 Test Item Value Reference Range Interpretation Comments Ketones, Blood (test code = 1103) 0.4 mmol/L <0.4 H Lab Interpretation (test code = Abnormal 04766-4) [facility] Campus[facility], [id number] 01:40:00 Test Item Value Reference Range Interpretation Comments Ketones, Blood (test code = 1103) 0.4 mmol/L <0.4 H Lab Interpretation (test code = Abnormal 95818-8) [facility], [id number] 01:40:00 Test Item Value Reference Range Interpretation Comments KETONES, BLOOD (BEAKER) (test code 0.4 mmol/L <0.4 H = 1103) SARS-CoV2/RT-PCR (Asymptomatic ONLY)2021-05-05 01:30:00 Test Item Value Reference Interpretation Comments Range SARS-COV2/RT-PCR Negative Negative The SARS-Co V-2 (test code = target nucleic 98889-7) acids are not detected in thi s [...] revoked sooner. Fact Sheet for Healthcare Providers: https://www.[employer]/Documents/Xp ert%20Xpress%20SAR S%20CoV-2/Fact%20S heets/302-3802%20S ARS-COV-2%20HEALTH CARE%20PROVIDERS%2 0FACT%20SHEET.pdf Fact Sheet for Healthcare Patients: https://www.[employer]/Documents/Xp ert%20Xpress%20SAR S%20CoV-2/Fact%20S heets/302-3801%20S ARS-COV-2%20PATIEN T%20FACT%20SHEET.p df Lab Interpretation Normal (test code = 26221-9) [facility]2021-05-05 01:30:00 Test Item Value Reference Interpretation Comments Range SARS-COV2/RT-PCR Negative Negative The SARS-Co V-2 (test code = target nucleic 25480-3) acids are not detected in thi s [...] revoked sooner. Fact Sheet for Healthcare Providers: https://www.[employer]/Documents/Xp ert%20Xpress%20SAR S%20CoV-2/Fact%20S heets/302-3802%20S ARS-COV-2%20HEALTH CARE%20PROVIDERS%2 0FACT%20SHEET.pdf Fact Sheet for Healthcare Patients: https://www.[employer]/Documents/Xp ert%20Xpress%20SAR S%20CoV-2/Fact%20S heets/302-3801%20S ARS-COV-2%20PATIEN T%20FACT%20SHEET.p df Lab Interpretation Normal (test code = 02660-3) [facility] ONLY[facility]2021-05-05 01:30:00 Test Item Value Reference Interpretation Comments Range SARS-COV2/RT-PCR Negative Negative The SARS-Co V-2 (test code = target nucleic 97024-8) acids are not detected in thi s [...] revoked sooner. Fact Sheet for Healthcare Providers: https://www.[employer]/Documents/Xp ert%20Xpress%20SAR S%20CoV-2/Fact%20S heets/302-3802%20S ARS-COV-2%20HEALTH CARE%20PROVIDERS%2 0FACT%20SHEET.pdf Fact Sheet for Healthcare Patients: https://www.[employer]/Documents/Xp ert%20Xpress%20SAR S%20CoV-2/Fact%20S heets/302-3801%20S ARS-COV-2%20PATIEN T%20FACT%20SHEET.p df Lab Interpretation Normal (test code = 32339-1) [facility]2021-05-05 01:30:00 Test Item Value Reference Interpretation Comments Range SARS-COV2/RT-PCR Negative Negative The SARS-Co V-2 (test code = target nucleic 19114-7) acids are not detected in thi s [...] revoked sooner. Fact Sheet for Healthcare Providers: https://www.[employer]/Documents/Xp ert%20Xpress%20SAR S%20CoV-2/Fact%20S heets/302-3802%20S ARS-COV-2%20HEALTH CARE%20PROVIDERS%2 0FACT%20SHEET.pdf Fact Sheet for Healthcare Patients: https://www.[employer]/Documents/Xp ert%20Xpress%20SAR S%20CoV-2/Fact%20S heets/302-3801%20S ARS-COV-2%20PATIEN T%20FACT%20SHEET.p df Lab Interpretation Normal (test code = 55574-6) [facility])2021-05-05 01:30:00 Test Item Value Reference Range Interpretation Comments SARS-COV2/RT-PCR Negative Negative The SARS-Co V-2 target (test code = nucleic acids a re not 2041487) detected in thi s specimen. Negative result [...] revoked sooner. Fact Sheet for Healthcare Providers: https://www.[employer]/Documents/Xpert%20Xpress%20SARS%20CoV-2/Fact%20Sheets/3023802%20SARS-COV -2%20HEALTHCARE%20PROVIDERS%20FACT%20SHEET.pdf Fact Sheet for Healthcare Patients: https://www.[employer]/Documents/Xpert %20Xpress%20SARS%20CoV-2/Fact%20Sheets/3023801%63QIND-GWM-8%20PATIENT%20FACT%20 SHEET.pdfBlood gas, [id number] 01:22:00 Test Item Value Reference Range Interpretation Comments pH, Niranjan (test code = 7.35 7.32-7.42 2746-6) pCO2, Niranjan (test code = 39 See_Comment L [Aut omated 245) message] The sy stem which generated this result transmitted reference range : 41 - 51 mm Hg. The reference range was not used to interpret this result as normal/abnormal . pO2, Niranjan (test code = 59 See_Comment H [Auto mated 2225-2) message] The sy stem which generated this result transmitted reference range : 25 - 40 mm Hg. The reference range was not used to interpret this result as normal/abnormal . O2 Sat, Niranjan (test code 89.4 % 40-70 H = 2711-0) HCO3, Niranjan (test code = 21 mmol/L 21-29 77688-5) Base Excess, Niranjan (test -4.5 mmol/L -2-3 L code = 1927-3) Patient Temperature 37.0 (test code = 8310-5) FIO2 (test code = 1819) 21 Lab Interpretation Abnormal (test code = 10795-1) [facility] gas, [id number] 01:22:00 Test Item Value Reference Range Interpretation [...] Niranjan (test code = 21 mmol/L 21-29 18666-9) Base Excess, Niranjan (test -4.5 mmol/L -2-3 L code = 1927-3) Patient Temperature 37.0 (test code = 8310-5) FIO2 (test code = 1819) 21 Lab Interpretation Abnormal (test code = 96908-4) [facility] gas, [id number] 01:22:00 Test Item Value Reference Range Interpretation [...] Niranjan (test code = 21 mmol/L 21-29 58777-9) Base Excess, Niranjan (test -4.5 mmol/L -2-3 L code = 1927-3) Patient Temperature 37.0 (test code = 8310-5) FIO2 (test code = 1819) 21 Lab Interpretation Abnormal (test code = 05830-5) [facility], [id number] 01:22:00 Test Item Value Reference Range Interpretation [...] code = 59 See_Comment H [Auto mated 1665-2) message] The sy stem which generated this result transmitted reference range : 25 - 40 mm Hg. The reference range was not used to interpret this result as normal/abnormal . O2 Sat, Niranjan (test code 89.4 % 40-70 H = 2711-0) HCO3, Niranjan (test code = 21 mmol/L 21-29 91421-1) Base Excess, Niranjan (test -4.5 mmol/L -2-3 L code = 1927-3) Patient Temperature 37.0 (test code = 8310-5) FIO2 (test code = 1819) 21 Lab Interpretation Abnormal (test code = 60303-5) [facility] GAS, [id number] 01:22:00 Test Item Value Reference Range Interpretation [...] (BEAKER) (test code = 1819) 21.0 ECG/EKG [id number] 23:15:Cherie Guerra MD 05/05/2021 2:11 AMECG/EKG Interpretation Date/Time: 05/04/2021 11:26 PMPerformed by: Cherie Faustin MDAuthorized by: Cherie Faustin MD The ECG was interpreted by ED physician. The ECG is interpreted as sinus rhythm. Rate is normal rate. Heart rate is 91 BPM.ST segments normal. T-wave inversion in lead(s) V1 and V2. Clinical Impression: normal [facility]CH[facility] HospitalEC[facility] [id number] 23:15:Cherie Guerra MD 05/05/2021 2:11 AMECG/EKG Interpretation Date/Time: 05/04/2021 11:26 PMPerformed by: Cherie Faustin MDAuthorized by: Cherie Faustin MD The ECG was interpreted by ED physician. The ECG is interpreted as sinus rhythm. Rate is normal rate. Heart rate is 91 BPM.ST segments normal. T-wave inversion in lead(s) V1 and V2. Clinical Impression: normal ECGCH[facility] HospitalECG/EKG [id number] 23:15:Cherie Guerra MD 05/05/2021 2:11 AMECG/EKG Interpretation Date/Time: 05/04/2021 11:26 PMPerformed by: Cherie Faustin MDAuthorized by: Cherie Faustin MD The ECG was interpreted by ED physician. The ECG is interpreted as sinus rhythm. Rate is normal rate. Heart rate is 91 BPM.ST segments normal. T-wave inversion in lead(s) V1 and V2. Clinical Impression: normal ECGCH[facility] HospitalECG/EKG [id number] 23:15:17Cherie Faustin MD 05/05/2021 2:11 AMECG/EKG Interpretation Date/Time: 05/04/2021 11:26 PMPerformed by: Cherie Faustin MDAuthorized by: Cherie Faustin MD The ECG was interpreted by ED physician. The ECG is interpreted as sinus rhythm. Rate is normal rate. Heart rate is 91 BPM.ST segments normal. T-wave inversion in lead(s) V1 and V2. Clinical Impression: normal ECGMer[facility] CampusHEPATIC FUNCTION [id number] 22:01:00 Test Item Value Reference Range Interpretation [...] Specimen moderately (test code = 347) hemolyzed Artist'S Representative ID - [id number] 21:53:00 Test Item Value Reference Range Interpretation Comments Amylase (test code = 143 U/L 25-125 H Specime n 1798-8) markedly hemolyzed TORRES (test code = TORRES) Artist'S Representative ID - DB Lab Interpretation Abnormal (test code = 88101-1) [facility] CampusLipase2021-08-23 21:53:00 Test Item Value Reference Range Interpretation Comments Lipase (test code = 3040-3) 97 U/L 8-78 H TORRES (test code = TORRES) Artist'S Representative ID - DB Lab Interpretation (test Abnormal code = 81770-5) [facility] CampusAmylase2021-08-23 21:53:00 Test Item Value Reference Range Interpretation Comments Amylase (test code = 143 U/L 25-125 H Specime n 1798-8) markedly hemolyzed TORRES (test code = TORRES) Artist'S Representative ID - DB Lab Interpretation Abnormal (test code = 02414-4) [facility] Campus[facility]2021-08-23 21:53:00 Test Item Value Reference Range Interpretation Comments Lipase (test code = 3040-3) 97 U/L 8-78 H TORRES (test code = TORRES) Artist'S Representative ID - DB Lab Interpretation (test Abnormal code = 81721-8) [facility] CampusAmylase2021-08-23 21:53:00 Test Item Value Reference Range Interpretation Comments Amylase (test code = 143 U/L 25-125 H Specime n 1798-8) markedly hemolyzed TORRES (test code = TORRES) Artist'S Representative ID - DB Lab Interpretation Abnormal (test code = 54425-4) [facility] Campus[facility]2021-08-23 21:53:00 Test Item Value Reference Range Interpretation Comments Lipase (test code = 3040-3) 97 U/L 8-78 H TORRES (test code = TORRES) Artist'S Representative ID - DB Lab Interpretation (test Abnormal code = 35130-2) [facility] CampusAmylase2021-08-23 21:53:00 Test Item Value Reference Range Interpretation Comments Amylase (test code = 143 U/L 25-125 H Specime n 1798-8) markedly hemolyzed TORRES (test code = TORRES) Artist'S Representative ID - DB Lab Interpretation Abnormal (test code = 58859-6) [facility] Campus[facility]2021-08-23 21:53:00 Test Item Value Reference Range Interpretation Comments Lipase (test code = 3040-3) 97 U/L 8-78 H TORRES (test code = TORRES) Artist'S Representative ID - DB Lab Interpretation (test Abnormal code = 91522-4) [facility] CampusBASIC METABOLIC [id number] 21:53:00 Test Item Value Reference Range Interpretation [...] S NOT APPLICABLE FOR DIALYSIS PATIEN TS. Artist'S Representative ID - [id number] 21:53:00 Test Item Value Reference Range Interpretation Comments AMYLASE (BEAKER) (test 143 U/L 25-125 H Speci men markedly code = 349) hemolyzed Artist'S Representative ID - [id number] 21:53:00 Test Item Value Reference Range Interpretation Comments LIPASE (BEAKER) (test code = 749) 97 U/L 8-78 H Artist'S Representative ID - DBCBC W/PLT COUNT & AUTO [id number] 19:51:00 Test Item Value Reference Range Interpretation [...] PERCENT (BEAKER) (test code = 2801) POC-Glucose [id number] 08:41:00 Test Item Value Reference Range Interpretation Comments POC-Glucose Meter (test 104 mg/dL 70-110 : TE STED AT [facility] code = 1538) [address] [place] [address], [facility] 30: Artist'S Representative/Techni aldo ID = [id number] for HUSSEIN LEMON Lab Interpretation (test Normal code = 52420-9) [facility] CampusPOC-Glucose [id number] 08:41:00 Test Item Value Reference Range Interpretation Comments POC-Glucose Meter (test 104 mg/dL 70-110 : TE STED AT [facility] code = 1538) [address] [place] [address], [facility] 30: Artist'S Representative/Techni aldo ID = [id number] for HUSSEIN LEMON Lab Interpretation (test Normal code = 19284-3) [facility]-Glucose [id number] 08:41:00 Test Item Value Reference Range Interpretation Comments POC-Glucose Meter (test 104 mg/dL 70-110 : TE STED AT [facility] code = 1538) [address] [facility], [address] 30: Artist'S Representative/Techni aldo ID = [id number] for HUSSEIN LEMON Lab Interpretation (test Normal code = 63926-4) [facility]-Glucose [id number] 08:41:00 Test Item Value Reference Range Interpretation Comments POC-Glucose Meter (test 104 mg/dL 70-110 : TE STED AT [facility] code = 1538) [address] [place] [address], [address] 30: Artist'S Representative/Techni aldo ID = [id number] for HUSSEIN LEMON Lab Interpretation (test Normal code = 63947-9) [facility]-GLUCOSE [id number] 08:41:00 Test Item Value Reference Range Interpretation Comments POC-GLUCOSE METER 104 mg/dL 70-110 : TESTED A T [facility] 6720 (BEAKER) (test code = [place] [facility], 1538) [address]: Artist'S Representative/Techni aldo ID = [id number] for HUSSEIN DAVID Comprehensive metabolic [id number] 06:49:00 Test Item Value Reference Range Interpretation Comments Protein, Total (test 6.8 See_Comment [Autom ated code = 2885-2) message] The system which generated this result transmit lane reference range : 6.0 - 8.3 gm/dL . The reference range was not u sed to interpret th is result as normal/abnormal . Albumin (test code = 3.5 g/dL 3.5-5 40322-6) Alkaline Phosphatase 44 U/L 40-150 (test code = 6768-6) Total Bilirubin (test 0.3 mg/dL 0.2-1.2 code = 1975-2) Sodium (test code = 139 meq/L 743-062 0186-2) Potassium (test code 3.8 meq/L 3.5-5.1 = 2823-3) Chloride (test code = 104 meq/L 98-107 5-0) CO2 (test code = 27 meq/L 22-29 2027-9) BUN (test code = 12 mg/dL 04-01 3094-0) Creatinine (test code 1.05 mg/dL 0.57-1.25 = 2160-0) Glucose (test code = 79 mg/dL 70-105 2345-7) Calcium (test code = 8.4 mg/dL 8.4-10.2 26656-2) AST (test code = 49 U/L 5-34 H 1920-8) ALT (test code = 41 U/L 6-55 1742-6) EGFR (test code = 52 mL/min/1.[address] [place] [address]-3) NOT ACCURATE CREATININE CLEARANCE IN PREDICTING GLOMERULAR FILTRATION RATE . ESTIMATED GFR I S NOT APPLICABLE FOR DIALYSIS PATIEN TORRES (test code = TORRES) Artist'S Representative ID - HUMBLE Porter Lab Interpretation Abnormal (test code = 11362-8) [facility] CampusComprehensive metabolic [id number] 06:49:00 Test Item Value Reference Range Interpretation Comments Protein, Total (test 6.8 See_Comment [Autom ated code = 2885-2) message] The system which generated this result transmit lane reference range : 6.0 - 8.3 gm/dL . The reference range was not u sed to interpret th is result as normal/abnormal . Albumin (test code = 3.5 g/dL 3.5-5 81215-9) Alkaline Phosphatase 44 U/L 40-150 (test code = 6768-6) Total Bilirubin (test 0.3 mg/dL 0.2-1.2 code = 1974-2) Sodium (test code = 139 meq/L 039-186 5116-2) Potassium (test code 3.8 meq/L 3.5-5.1 = 2823-3) Chloride (test code = 104 meq/L 98-107 5-0) CO2 (test code = 27 meq/L 2028-05) BUN (test code = 12 mg/dL 04-01 3094-0) Creatinine (test code 1.05 mg/dL 0.57-1.25 = 2160-0) Glucose (test code = 79 mg/dL 70-105 2345-7) Calcium (test code = 8.4 mg/dL 8.4-10.2 64091-6) AST (test code = 49 U/L 5-34 H 1920-8) ALT (test code = 41 U/L 6-55 1742-6) EGFR (test code = 52 mL/min/1.[address] [place] [address]-0) NOT ACCURATE CREATININE CLEARANCE IN PREDICTING GLOMERULAR FILTRATION RATE . ESTIMATED GFR I S NOT APPLICABLE FOR DIALYSIS PATIEN TSKenrick TORRES (test code = TORRES) Artist'S Representative ID - HUMBLE M Lab Interpretation Abnormal (test code = 27399-2) [facility] CampusComprehensive metabolic [id number] 06:49:00 Test Item Value Reference Range Interpretation Comments Protein, Total (test 6.8 See_Comment [Autom ated code = 2885-2) message] The system which generated this result transmit lane reference range : 6.0 - 8.3 gm/dL . The reference range was not u sed to interpret th is result as normal/abnormal . Albumin (test code = 3.5 g/dL 3.5-5 72536-5) Alkaline Phosphatase 44 U/L 40-150 (test code = 6768-6) Total Bilirubin (test 0.3 mg/dL 0.2-1.2 code = 1974-2) Sodium (test code = 139 meq/L 262-641 3340-2) Potassium (test code 3.8 meq/L 3.5-5.1 = 2823-3) Chloride (test code = 104 meq/L 98-107 2075-0) CO2 (test code = 27 meq/L 22-29 8-9) BUN (test code = 12 mg/dL 7-21 3094-0) Creatinine (test code 1.05 mg/dL 0.57-1.25 = 2160-0) Glucose (test code = 79 mg/dL 70-105 2345-7) Calcium (test code = 8.4 mg/dL 8.4-10.2 91867-3) AST (test code = 49 U/L 5-34 H 1920-8) ALT (test code = 41 U/L 6-55 1742-6) EGFR (test code = 52 mL/min/1.[address] [place] [address]-1) NOT ACCURATE CREATININE CLEARANCE IN PREDICTING GLOMERULAR FILTRATION RATE . ESTIMATED GFR I S NOT APPLICABLE FOR DIALYSIS PATIEN TSKenrick TORRES (test code = TORRES) Artist'S Representative ID - HUMBLE M Lab Interpretation Abnormal (test code = 94617-6) [facility] CampusComprehenve metabolic [id number] 06:49:00 Test Item Value Reference Range Interpretation Comments Protein, Total (test 6.8 See_Comment [Autom ated code = 2885-2) message] The system which generated this result transmit lane reference range : 6.0 - 8.3 gm/dL . The reference range was not u sed to interpret th is result as normal/abnormal . Albumin (test code = 3.5 g/dL 3.5-5 13853-3) Alkaline Phosphatase 44 U/L 40-150 (test code = 6768-6) Total Bilirubin (test 0.3 mg/dL 0.2-1.2 code = 1974-2) Sodium (test code = 139 meq/L 361-057 3691-2) Potassium (test code 3.8 meq/L 3.5-5.1 = 2823-3) Chloride (test code = 104 meq/L 98-107 2075-0) CO2 (test code = 27 meq/L 22-29 2028-9) BUN (test code = 12 mg/dL 7-21 3094-0) Creatinine (test code 1.05 mg/dL 0.57-1.25 = 2160-0) Glucose (test code = 79 mg/dL 70-105 2345-7) Calcium (test code = 8.4 mg/dL 8.4-10.2 97450-5) AST (test code = 49 U/L 5-34 H 1920-8) ALT (test code = 41 U/L 6-55 1742-6) EGFR (test code = 52 mL/min/1.[address] [place] [address]-6) NOT ACCURATE CREATININE CLEARANCE IN PREDICTING GLOMERULAR FILTRATION RATE . ESTIMATED GFR I S NOT APPLICABLE FOR DIALYSIS PATIEN TSKenrick TORRES (test code = TORRES) Artist'S Representative ID - HUMBLE M Lab Interpretation Abnormal (test code = 39566-6) [facility] CampusCOMPREHENSIVE METABOLIC [id number] 06:49:00 Test Item Value Reference Range Interpretation [...] S NOT APPLICABLE FOR DIALYSIS PATIEN TS. Artist'S Representative ID - HUMBLE MPOCT-GLUCOSE [id number] 16:54:00 Test Item Value Reference Range Interpretation Comments POC-GLUCOSE METER 171 mg/dL 70-110 H : TESTED A T [facility] 6720 (BEAKER) (test code = [place], 1538) [address]: Artist'S Representative/Techni aldo ID = [id number] for ALBINO GONZALEZ Hemoglobin [id number] 15:22:00 Test Item Value Reference Range Interpretation Comments Hemoglobin A1C (test code = 4548-4) 6.2 % 4.3-6.1 H Lab Interpretation (test code = Abnormal 61429-9) [facility] CampusHemoglobin [id number] 15:22:00 Test Item Value Reference Range Interpretation Comments Hemoglobin A1C (test code = 4548-4) 6.2 % 4.3-6.1 H Lab Interpretation (test code = Abnormal 74664-1) [facility] CampusHemoglobin [id number] 15:22:00 Test Item Value Reference Range Interpretation Comments Hemoglobin A1C (test code = 4548-4) 6.2 % 4.3-6.1 H Lab Interpretation (test code = Abnormal 90087-6) [facility] CampusHemoglobin [id number] 15:22:00 Test Item Value Reference Range Interpretation Comments Hemoglobin A1C (test code = 4548-4) 6.2 % 4.3-6.1 H Lab Interpretation (test code = Abnormal 01181-6) [facility] CampusHEMOGLOBIN [id number] 15:22:00 Test Item Value Reference Range Interpretation Comments HEMOGLOBIN A1C (BEAKER) (test code = 6.2 % 4.3-6.1 H 368) POCT-GLUCOSE [id number] 12:56:00 Test Item Value Reference Range Interpretation Comments POC-GLUCOSE METER 93 mg/dL 70-110 : Notified RN/MD: TESTED (BEAKER) (test code = AT [facility] [address] [facility] 1538) [facility], [facility] 30: Artist'S Representative/Techni aldo ID = [id number] for [facility], [id number] 12:02:00Reason for exam:->[facility] : 1950 Sex: FFluoroscopic unit utilized for a procedure performed in the OR. No interpretation was requested. Refer to the operative report for findings. Refer to PACS for patient radiation dose information.FL Endoscopic Retrograde Aroeqyukmjxbxinpngqcjftb1551-51-06 12:02:00Interface, External Ris In - 03/10/2021 12:18 PM CDTFluoroscopic unit utilized for a procedure performed in the OR. No interpretation was requested. Refer to the operative report for findings. Referto PACS for patient radiation dose information.[facility] Endoscopic Retrograde Wcuhmclnlhepwtvxzmitsout5302-15-41 12:02:00Interface, External Ris In - 03/10/2021 12:18 PM CDTFluoroscopic unit utilized for a procedure performed in the OR. No interpretation was requested. Refer to the operative report for findings. Referto PACS for patient radiation dose information.[facility] Endoscopic Retrograde Qsxmnmqkbuwpcfrejogfgnqb7275-68-15 12:02:00Interface, External Ris In 03/10/2021 12:18 PM CDTFluoroscopic unit utilized for a procedure performed in the OR. No interpretation was requested. Refer to the operative report for findings. Referto PACS for patient radiation dose information.[facility] Endoscopic Retrograde Nwqouqgxvlzxvqnakkfheqrl8996-89-11 12:02:00Interface, External Ris In 03/10/2021 12:18 PM CDTFluoroscopic unit utilized for a procedure performed in the OR. No interpretation was requested. Refer to the operative report for findings. Referto PACS for patient radiation dose information.[facility]PO[facility]SE [id number] 09:27:00 Test Item Value Reference Range Interpretation Comments POC-GLUCOSE METER 74 mg/dL 70-110 : TESTED A T [facility] 6720 ([employer]) (test code = [facility], 1538) [address]: Artist'S Representative/Techni aldo ID = [id number] for ALBINO ROSS COMPREHENSIVE METABOLIC [id number] 05:49:00 Test Item Value Reference Range Interpretation [...] S NOT APPLICABLE FOR DIALYSIS PATIEN TS. Artist'S Representative ID - [facility]2021-03-10 05:10:00 Test Item Value Reference Range Interpretation Comments WBC (test code = 6690-2) 9.1 See_Comment [A utomated message] The system [email or web address] generated this result transmitted ref erence range: 3.5 - 10 .5 K/L. The refe rence range was not u sed to interpret this result as normal/abnor mal. RBC (test code = 789-8) 3.57 See_Comment L [Au tomated message] The system [employer] generated this result transmitted ref erence range: 3.93 - 5 .22 M/L. The refe rence range was not u sed to interpret this result as normal/abnor mal. MCHC (test code = 786-4) 30.9 See_Comment L [A utomated message] The system [email or web address] generated this result transmitted ref erence range: [...] See_Comment [Aut omated message] 777-3) The system [email or web address] generated this result transmitted ref erence range: 150 - 45 0 K/CU MM. The referen ce range was not u sed to interpret this result as normal/abnor mal. MPV (test code = 9.3 fL 9.4-12.3 L 00530-6) nRBC (test code = 413) 0 See_Comment [Aut omated message] The system [email or web address] generated this result transmitted ref erence range: 0 - 0 /1 00 WBC. The refere nce range was not u sed to interpret this result as normal/abnor mal. Lab Interpretation (test Abnormal code = 50503-7) [facility] (Hemogram only)2021-03-10 05:10:00 Test Item Value Reference Range Interpretation Comments WBC (test code = 6690-2) 9.1 See_Comment [A utomated message] The system [employer] generated this result transmitted ref erence range: 3.5 - 10 .5 K/L. The refe rence range was not u sed to interpret this result as normal/abnor mal. RBC (test code = 789-8) 3.57 See_Comment L [Au tomated message] The system [employer] generated this result transmitted ref erence range: 3.93 - 5 .22 M/L. The refe rence range was not u sed to interpret this result as normal/abnor mal. MCHC (test code = 786-4) 30.9 See_Comment L [A utomated message] The system [employer] generated this result transmitted ref erence range: [...] See_Comment [Aut omated message] 777-3) The system [employer] generated this result transmitted ref erence range: 150 - 45 0 K/CU MM. The referen ce range was not u sed to interpret this result as normal/abnor mal. MPV (test code = 9.3 fL 9.4-12.3 L 98499-5) nRBC (test code = 413) 0 See_Comment [Aut omated message] The system [employer] generated this result transmitted ref erence range: 0 - 0 /1 00 WBC. The refere nce range was not u sed to interpret this result as normal/abnor mal. Lab Interpretation (test Abnormal code = 02555-3) [facility] (Hemogram only)2021-03-10 05:10:00 Test Item Value Reference Range Interpretation Comments WBC (test code = 6690-2) 9.1 See_Comment [A utomated message] The system [employer] generated this result transmitted ref erence range: 3.5 - 10 .5 K/L. The refe rence range was not u sed to interpret this result as normal/abnor mal. RBC (test code = 789-8) 3.57 See_Comment L [Au tomated message] The system [employer] generated this result transmitted ref erence range: 3.93 - 5 .22 M/L. The refe rence range was not u sed to interpret this result as normal/abnor mal. MCHC (test code = 786-4) 30.9 See_Comment L [A utomated message] The system [employer] generated this result transmitted ref erence range: [...] See_Comment [Aut omated message] 777-3) The system [employer] generated this result transmitted ref erence range: 150 - 45 0 K/CU MM. The referen ce range was not u sed to interpret this result as normal/abnor mal. MPV (test code = 9.3 fL 9.4-12.3 L 91060-9) nRBC (test code = 413) 0 See_Comment [Aut omated message] The system [employer] generated this result transmitted ref erence range: 0 - 0 /1 00 WBC. The refere nce range was not u sed to interpret this result as normal/abnor mal. Lab Interpretation (test Abnormal code = 89158-6) [facility] (Hemogram only)2021-03-10 05:10:00 Test Item Value Reference Range Interpretation Comments WBC (test code = 6690-2) 9.1 See_Comment [A utomated message] The system [employer] generated this result transmitted ref erence range: 3.5 - 10 .5 K/L. The refe rence range was not u sed to interpret this result as normal/abnor mal. RBC (test code = 789-8) 3.57 See_Comment L [Au tomated message] The system [employer] generated this result transmitted ref erence range: 3.93 - 5 .22 M/L. The refe rence range was not u sed to interpret this result as normal/abnor mal. MCHC (test code = 786-4) 30.9 See_Comment L [A utomated message] The system [employer] generated this result transmitted ref erence range: [...] See_Comment [Aut omated message] 777-3) The system [employer] generated this result transmitted ref erence range: 150 - 45 0 K/CU MM. The referen ce range was not u sed to interpret this result as normal/abnor mal. MPV (test code = 9.3 fL 9.4-12.3 L 65010-2) nRBC (test code = 413) 0 See_Comment [Aut omated message] The system [employer] generated this result transmitted ref erence range: 0 - 0 /1 00 WBC. The refere nce range was not u sed to interpret this result as normal/abnor mal. Lab Interpretation (test Abnormal code = 47950-5) [facility] (HEMOGRAM ONLY)2021-03-10 05:10:00 Test Item [...] 0-0 (BEAKER) (test code = 413) POCT-GLUCOSE [id number] 00:05:00 Test Item Value Reference Range Interpretation Comments POC-GLUCOSE METER 83 mg/dL 70-110 : TESTED A T [facility] [address] (BEAKER) (test code = [place], 1538) [address]: Artist'S Representative/Techni aldo ID = [id number] for BRENDA VENCES SARS-COV2/RT-PCR ([facility])2021-03-09 23:58:00 Test Item Value Reference Range Interpretation Comments SARS-COV2/RT-PCR (test Negative Not Detected, Negative, code = 4748348) See external report for linked test SARS-COV-[address] [facility] SHIV (test code = 2916963) Negative result for this test determines that [...] 564(g) of the Act.Fact Sheet for Healthcare Providers:https://www.[employer]/sites/default/files/product/documents/Fact_Shee h_GJ_Xowexwnlx_Zwbk_MRUO-CwK-7.pdfFact Sheet for Healthcare Patients:https://www.[employer]/sites/default/files/product/ documents/Mwdx_Leqaq_Mhcxnzip_Aepi_TWUQ-WzY-2.pdfPerforming Laboratory:[facility], [place] [address]SYGF-CKHTTUG METER 2021-03-09 17:34:00 Test Item Value Reference Range Interpretation Comments POC-GLUCOSE METER 97 mg/dL 70-110 : TESTED A T [facility] 67[address] (LIA) (test code = [place] [facility], 1538) [address]: Artist'S Representative/Techni aldo ID = [id number] for ALBINO ROSS MR, ABDOMEN, [id number] 17:11:00Unlisted Reason for Exam - Click Yes and Enter Reason Below->NoPatient with hyperdense material seen in distal CBD on CTA performed in [facility] : 1950 Sex: FFINAL [...] 12/29/2005 but appears chronic Signed: Ashely Aly MDReplakeland regional hospital Verified Date/Time: 03/09/2021 17:11:18 Reading Location: [address] Transitional Reading Room MR abdomen without IV contrast [id number] 17:11:00 Interface, External Ris In - 03/09/2021 [...] Aly Verified Date/Time: 03/09/2021 17:11:18 Reading Location: [address] Transitional [facility] [id number] 17:11:00 Interface, External Ris In - 03/09/2021 [...] CT 12/29/2005 but appears chronic Signed: Ashely Alyepnikhil Verified Date/Time: 03/09/2021 17:11:18 Reading Location: [facility] C013 Transitional Reading Room [facility] without IV contrast [id number] 17:11:00 Interface, External Ris In - 03/09/2021 [...] 12/29/2005 but appears chronic Signed: Ashely Aly [facility] Verified Date/Time: 03/09/2021 17:11:18 Reading Location: [facility] C013T Transitional Reading Room [facility] without IV contrast [id number] 17:11:00 Interface, External Ris In - 03/09/2021 [...] Aly Verified Date/Time: 03/09/2021 17:11:18 Reading Location: [address] Transitional Reading Room [facility]PO[facility] [id number] 12:41:00 Test Item Value Reference Range Interpretation Comments POC-GLUCOSE METER 92 mg/dL 70-110 : TESTED A T [facility] 67[address] (BEAKER) (test code = [place] [facility], 1538) [address]: Artist'S Representative/Techni aldo ID = [id number] for PARESH NO ALBINO Urinalysis w/Microscopic + Reflex to [id number] 11:21:00 Test Item Value Reference Range Interpretation Comments Color, UA (test code Light Yellow = 5778-6) Clarity, UA (test Clear code = 5767-9) Specific [place], UA 1.033 1.001-1.035 (test code = 5811-5) pH, UA (test code = 5.5 5.0-8.0 5803-2) Protein, UA (test Negative Negative code = 79727-6) Glucose, UA (test Negative Negative code = 365) Ketones, UA (test Negative Negative code = 2514-8) Bilirubin, UA (test Negative Negative code = 83943-8) Blood, UA (test code Trace Negative A = 05296-8) Nitrite, UA (test Negative Negative code = 5802-4) Leukocytes, UA (test Negative Negative code = 5799-2) Urobilinogen, UA 0.2 mg/dL 0.2-1 (test code = 68910-3) RBC, UA (test code = 2 See_Comment [Autom ated 12419-1) message] The system which generated this result [...] Bacteria, UA (test None Seen code = 49818-5) Mucus (test code = Rare 8247-9) Squam Epithel, UA 1 See_Comment [Automate d (test code = 13327-7) messag e] The system which generated this result transmit lane reference range : /HPF. The reference range was not used to interpret this result as normal/abnormal . Crystals, Urine (test None Seen code = 22324-2) Specimen Source (test code = 2795) TORRES (test code = TORRES) Artist'S Representative ID - [auto]Artist'S Representative ID - tech Lab Interpretation Abnormal (test code = 74222-1) [facility]/Microsc[facility] + Reflex to Culture 2021-03-09 11:21:00 Test Item Value Reference Range Interpretation Comments Color, UA (test code Light Yellow = 5778-6) Clarity, UA (test Clear code = 5767-9) Specific [place], UA 1.033 1.001-1.035 (test code = 5811-5) pH, UA (test code = 5.5 5.0-8.0 5803-2) Protein, UA (test Negative Negative code = 14641-7) Glucose, UA (test Negative Negative code = 365) Ketones, UA (test Negative Negative code = 2514-8) Bilirubin, UA (test Negative Negative code = 60097-9) Blood, UA (test code Trace Negative A = 49289-2) Nitrite, UA (test Negative Negative code = 5802-4) Leukocytes, UA (test Negative Negative code = 5799-2) Urobilinogen, UA 0.2 mg/dL 0.2-1 (test code = 87110-4) RBC, UA (test code = 2 See_Comment [Autom ated 90240-2) message] The system which generated this result [...] Bacteria, UA (test None Seen code = 45534-5) Mucus (test code = Rare 8247-9) Squam Epithel, UA 1 See_Comment [Automate d (test code = 40147-2) messag e] The system which generated this result transmit lane reference range : /HPF. The reference range was not used to interpret this result as normal/abnormal . Crystals, Urine (test None Seen code = 06535-7) Specimen Source (test code = 2795) TORRES (test code = TORRES) Artist'S Representative ID - [auto]Artist'S Representative ID - tech Lab Interpretation Abnormal (test code = 77644-4) [facility]Ur[facility] w/Microscopic + Reflex to Culture 2021-03-09 11:21:00 Test Item Value Reference Range Interpretation Comments Color, UA (test code Light Yellow = 5778-6) Clarity, UA (test Clear code = 5767-9) Specific [place], UA 1.033 1.001-1.035 (test code = 5811-5) pH, UA (test code = 5.5 5.0-8.0 5803-2) Protein, UA (test Negative Negative code = 90968-3) Glucose, UA (test Negative Negative code = 365) Ketones, UA (test Negative Negative code = 2514-8) Bilirubin, UA (test Negative Negative code = 57719-8) Blood, UA (test code Trace Negative A = 77860-9) Nitrite, UA (test Negative Negative code = 5802-4) Leukocytes, UA (test Negative Negative code = 5799-2) Urobilinogen, UA 0.2 mg/dL 0.2-1 (test code = 39379-2) RBC, UA (test code = 2 See_Comment [Autom ated 97911-1) message] The system which generated this result [...] Bacteria, UA (test None Seen code = 52822-8) Mucus (test code = Rare 8247-9) Squam Epithel, UA 1 See_Comment [Automate d (test code = 74303-8) messag e] The system which generated this result transmit lane reference range : /HPF. The reference range was not used to interpret this result as normal/abnormal . Crystals, Urine (test None Seen code = 44801-9) Specimen Source (test code = 2795) TORRES (test code = TORRES) Artist'S Representative ID - [auto]Artist'S Representative ID - tech Lab Interpretation Abnormal (test code = 89433-4) [facility]Urinal[facility] w/Microscopic + Reflex to Culture 2021-03-09 11:21:00 Test Item Value Reference Range Interpretation Comments Color, UA (test code Light Yellow = 5778-6) Clarity, UA (test Clear code = 5767-9) Specific [place], UA 1.033 1.001-1.035 (test code = 5811-5) pH, UA (test code = 5.5 5.0-8.0 5803-2) Protein, UA (test Negative Negative code = 86997-9) Glucose, UA (test Negative Negative code = 365) Ketones, UA (test Negative Negative code = 2514-8) Bilirubin, UA (test Negative Negative code = 14043-9) Blood, UA (test code Trace Negative A = 62962-1) Nitrite, UA (test Negative Negative code = 5802-4) Leukocytes, UA (test Negative Negative code = 5799-2) Urobilinogen, UA 0.2 mg/dL 0.2-1 (test code = 03583-1) RBC, UA (test code = 2 See_Comment [Autom ated 90862-8) message] The system which generated this result [...] Bacteria, UA (test None Seen code = 51110-6) Mucus (test code = Rare 8247-9) Squam Epithel, UA 1 See_Comment [Automate d (test code = 78575-2) messag e] The system which generated this result transmit lane reference range : /HPF. The reference range was not used to interpret this result as normal/abnormal . Crystals, Urine (test None Seen code = 63144-9) Specimen Source (test code = 2795) TORRES (test code = TORRES) Artist'S Representative ID - [auto]Artist'S Representative ID - tech Lab Interpretation Abnormal (test code = 34042-8) [facility]UR[facility] W/ REFLEX URINE [id number] 11:21:00 Test Item Value Reference Range Interpretation [...] = 1521) SOURCE(BEAKER) (test code = 2795) Artist'S Representative ID - [auto]Artist'S Representative ID - techHEMOGLOBIN [id number] 10:22:00 Test Item Value Reference Range Interpretation Comments HEMOGLOBIN A1C (BEAKER) (test code = 6.1 % 4.3-6.1 368) [id number] 06:48:00 Test Item Value Reference Range Interpretation Comments Magnesium (test code = 2.1 mg/dL 1.6-2.6 16896-0) TORRES (test code = TORRES) Artist'S Representative ID - ELVIN W Lab Interpretation (test Normal code = 20016-1) [facility] CampusMagnesium2021-06-28 06:48:00 Test Item Value Reference Range Interpretation Comments Magnesium (test code = 2.1 mg/dL 1.6-2.6 44131-4) TORRES (test code = TORRES) Artist'S Representative ID - ELVIN W Lab Interpretation (test Normal code = 02475-5) [facility] CampusMagnesium2021-06-28 06:48:00 Test Item Value Reference Range Interpretation Comments Magnesium (test code = 2.1 mg/dL 1.6-2.6 06417-1) TORRES (test code = TORRES) Artist'S Representative ID - ELVIN W Lab Interpretation (test Normal code = 33953-2) [facility] CampusMagnesium2021-06-28 06:48:00 Test Item Value Reference Range Interpretation Comments Magnesium (test code = 2.1 mg/dL 1.6-2.6 91969-9) TORRES (test code = TORRES) Artist'S Representative ID - ELVIN W Lab Interpretation (test Normal code = 59993-4) [facility] CampusBASIC METABOLIC [id number] 06:48:00 Test Item Value Reference Range Interpretation [...] S NOT APPLICABLE FOR DIALYSIS PATIEN TS. Artist'S Representative ID - ELVIN [id number] 06:48:00 Test Item Value Reference Range Interpretation Comments MAGNESIUM (BEAKER) (test code = 2.1 mg/dL 1.6-2.6 627) Artist'S Representative ID - ELVIN WHEPATIC FUNCTION [id number] 06:48:00 Test Item Value Reference Range Interpretation [...] (test code = 30 U/L 6-55 347) Artist'S Representative ID Carlo ELVIN WPROTHROMBIN TIME/[id number] 06:32:00 Test Item Value Reference Range Interpretation Comments PROTIME (BEAKER) 12.9 seconds 11.9-14.2 (test code = 759) INR (BEAKER) (test 0.99 See_Comment [Automat ed message] code = 370) The system whic h generated this result [...] code = 2801) MRI Brain wo contrast [id number] 16:25:00Patient Name: RIYA BLAKELY TRANDOB: 1950. Age: 67 years. Gender: Female.MR: [id number]. Location: [facility]. Provider: Hollie Osorio MD.EXAM: Brain wo contrast [...] intracranial abnormality. Mild chronicmicroangiopathic ischemic gliosis. SL: [id number]--Nqgx by: Finesse Dias MDDictated Date/time: 0 02/08/18 17:31Electronically Signed by: Finesse Dias MD 02/08/1817:40FINALREPORTUnRiverton [facility] PhysiciansO[facility] Brain w/wo contrast [id number] 13:39:00 Test Item Value Reference Range Interpretation Comments Brain w/wo contrast MRI Cancel Reason: Exam (test code = Brain w/wo Replaced contrast MRI) [facility]"
[2021-08-23 18:15] LABS: Absolute Lymphocytes (CBC) 2.2 K/uL (0.7-4.9); Basophils % 0.4 % (0-1.3); Hematocrit 31.4 % (36.0-45.0); Lymphocytes % 21.8 % (15.3-44.8); MPV 6.8 fL (7.6-11.3); RBC Red Blood Cell Count 3.48 M/uL (3.86-4.86)
[2021-08-23 18:28] LABS: ALT/SGPT 22 U/L (12-78); AST/SGOT 20 U/L (15-37); Albumin 3.5 g/dL (3.4-5.0); Alkaline Phosphatase 74 U/L (45-117); BUN Blood Urea Nitrogen 20 mg/dL (7-18); Bicarbonate 25 mmol/L (21-32); Bilirubin Direct < 0.1 mg/dL (0-0.2); Bilirubin Total 0.1 mg/dL (0.2-1.0); Glucose Level 96 mg/dL (74-106); Lipase 320 U/L (73-393); Protein, Total 8.1 g/dL (6.4-8.2); Sodium Level 135 mmol/L (136-145)
[2021-08-23 18:38] LABS: Urine Blood Trace-lysed (Negative); Urine Glucose Negative (Negative); Urine Protein Negative (Negative); Urine Specific Gravity <=1.005 (1.005-1.030); Urine pH 5.5 (5.0-7.0)
[2021-08-23] MEDS ORDERED: FAMOTIDINE 20 MG/2 ML VIAL IV ONE (19:53)
[2021-08-23] MEDS ORDERED: NA CHLORIDE 0.9% 1,000 ML ONE (19:53)
[2021-08-23] MEDS ORDERED: MORPHINE 2 MG/ML SYR ONE (19:53)
[2021-08-23] MEDS ORDERED: ONDANSETRON 4 MG/2 ML VIAL ONE (19:53)
[2021-08-23 20:05] LABS: NT PRO-BNP 149 pg/mL (<125); Troponin (Emerg Dept Use Only) < 0.02 ng/mL (0.0-0.045)
--- NOTE | 2021-08-23 20:19 | RAD REPORT ---
EXAM DESCRIPTION: RAD - Chest Single View - 08/23/2021 8:05 pm CLINICAL HISTORY: ABDOMINAL DISTENTION COMPARISON: April 09 TECHNIQUE: AP portable chest image was obtained 08/23/2021 8:05 pm . FINDINGS: Lung volumes are low. Interstitial pattern matches comparison. No acute lung parenchymal p rocess. Heart and vasculature are normal. No measurable pleural effusion and no pneumothorax. No acut e bony abnormality seen. No acute aortic findings suspected. IMPRESSION: No acute cardiopulmonary process. No significant change from comparison study.
[2021-08-23] MEDS ORDERED: HYDROMORPHONE HCL 0.5 MG/0.5 ML INJ ONE ×2 (20:23→21:36)
--- NOTE | 2021-08-23 23:31 | ER ---
Nurse's Notes [facility] Name: Alberto Botello Age: 71 yrs Sex: Female : 1950 Arrival Date: 08/23/2021 Time: 17:41 Bed 7 Private MD: Alis Jamison H Diagnosis: Abdominal tenderness;Type 2 diabetes mellitus with hyperglycemia;Chronic pain, not elsewhere classified Presentation: 08/23 17:49 Chief complaint: Patient's son or daughter states: back and left sided abd pain , iw started this morning. Coronavirus screen: At this time, the client does not indicate any symptoms associated with coronavirus-19. Ebola Screen: Patient negative for fever greater than or equal to 101.5 degrees Fahrenheit, and additional compatible Ebola Virus Disease symptoms Patient denies exposure to infectious person. Patient denies travel to an Ebola-affected area in the 21 days before illness onset. No symptoms or risks identified at this time. Initial Sepsis Screen: Does the patient meet any 2 criteria? No. Patient's initial sepsis screen is negative. Does the patient have a suspected source of infection? No. Patient's initial sepsis screen is negative. Risk Assessment: Do you want to hurt yourself or someone else? Patient reports no desire to harm self or others. Onset of symptoms was August 23, 2021. 17:49 Method Of Arrival: Ambulatory iw 17:49 Acuity: ART 3 iw Triage Assessment: 08/24 00:30 General: Appears in no apparent distress. tw5 Historical: - Allergies: 08/23 17:50 No Known Allergies; iw - Home Meds: 17:50 alprazolam 2 mg Oral tab 1 tab nightly [Active]; Amitiza 24 mcg Oral cap 1 cap iw [Active]; benztropine 0.5 mg Oral tab 1 tab 2 times per day [Active]; citalopram 20 mg tab 1 tab once daily [Active]; Linzess 145 mcg Oral cap 1 cap once daily [Active]; lisinopril 10 mg Oral tab 1 tab once daily [Active]; meclizine 25 mg Oral cap as needed [Active]; [place] 7.5-325 mg Oral tab 1 tab TID [Active]; Protonix 40 mg Oral TbEC 1 tab once daily [Active]; risperadone 0.5 daily [Active]; ursodiol 500 mg Oral tab daily [Active]; Vitamin D Oral 1000 unit daily [Active]; - PMHx: 17:50 Anxiety; Chronic pain; Diabetes - NIDDM; Hepatitis; Hypertension; Pancreatitis; iw Osteoporosis; - PSHx: 17:50 Cholecystectomy; iw - Immunization history:: Client reports receiving the 2nd dose of the Covid vaccine. - Social history:: Smoking status: Patient denies any tobacco usage or history of. - Family history:: not pertinent. Screenin:01 Abuse screen: Denies threats or abuse. Denies injuries from another. Nutritional tw5 screening: No deficits noted. Tuberculosis screening: No symptoms or risk factors identified. Fall Risk No fall in past 12 months (0 pts). Secondary diagnosis (15 points) IV access (20 points). Ambulatory Aid- None/Bed Rest/Nurse Assist (0 pts). Assessment: 20:00 Pain: Pain currently is 10 out of 10 on a pain scale. tw5 20:01 General: Reports Since her last visit here she has had chronic pain, they take pain tw5 medication but it isn't helping. Pain: Complains of pain in left upper quadrant and left lower quadrant. Neuro: Level of Consciousness is awake, alert, obeys commands. Respiratory: Airway is patent Trachea midline Respiratory effort is even, unlabored. GI: Bowel sounds. GI: Reports constipation, Patient currently denies nausea, vomiting. 20:29 General: [id number] Gali . tw5 21:40 Pain: Pain currently is 10 out of 10 on a pain scale. GI: Abdomen is tender to tw5 palpation in left upper quadrant and left lower quadrant. 22:33 Reassessment: Patient states feeling better. General: Behavior is appropriate for age. tw5 Pain: Pain currently is 4 out of 10 on a pain scale. Vital Signs: 17:51 BP 154 / 95; Pulse 92; Resp 16; Temp 98.4; Pulse Ox 95% on R/A; iw 20:14 BP 158 / 90; Pulse 80; Resp 20; Pulse Ox 100% on R/A; Pain 9/10; tw5 20:18 Pain 6/10; tw5 21:36 Pain 9/10; tw5 21:40 BP 150 / 79; Pulse 78; Resp 14; Pulse Ox 100% on R/A; Pain 9/10; tw5 22:33 BP 144 / 80; Pulse 81; Resp 18; Pulse Ox 96% on R/A; Pain 4/10; tw5 22:34 Pain 4/10; tw5 ED Course: 17:41 Patient arrived in ED. am2 17:41 Alis Jamison DO is Private Physician. am2 17:50 Triage completed. iw 17:51 Arm band placed on. iw 17:58 Initial lab(s) drawn, by me, sent to lab. Inserted saline lock: 22 gauge in right dh3 forearm, using aseptic technique. Blood collected. 19:21 Rob Galo MD is Attending Physician. [facility] 19:46 Yara Galan is Primary Nurse. tw5 19:51 Assisted to bathroom. tw5 20:01 Patient has correct armband on for positive identification. Placed in gown. Bed in low tw5 position. Call light in reach. Side rails up X 1. Adult w/ patient. library monitor on. Pulse ox on. NIBP on. Door closed. Moved to private room. Warm blanket given. Verbal reassurance given. 20:05 XRAY Chest (1 view) In Process Unspecified. EDMS 20:16 NT PRO-BNP Sent. tw5 20:16 PT-INR Sent. tw5 22:28 CT Abd/Pelvis - PO and IV Contrast In Process Unspecified. EDMS 22:33 Assisted to bathroom. tw5 23:29 Alis Jamison DO is Referral Physician. [facility] 12 00:30 No provider procedures requiring assistance completed. IV discontinued, intact, tw5 bleeding controlled, No redness/swelling at site. Pressure dressing applied. Administered Medications: 08/23 20:15 Drug: NS 0.9% 500 ml Route: IV; Rate: bolus; Site: right forearm; tw5 20:15 Drug: NS 0.9% 1000 ml Route: IV; Rate: 125 ml/hr; Site: right forearm; tw5 20:15 Drug: Pepcid (famotidine) 20 mg Route: IVP; Site: right forearm; tw5 21:36 Follow up: Response: No adverse reaction tw5 20:15 Drug: morphine 2 mg Route: IVP; Site: right forearm; tw5 20:18 Follow up: Pain 6/10 Adult; Response: No adverse reaction; Pain is unchanged, physician tw5 notified; RASS: Alert and Calm (0) 20:15 Drug: Zofran (Ondansetron) 4 mg Route: IVP; Site: right forearm; tw5 20:17 Follow up: Response: No adverse reaction tw5 20:29 Drug: Dilaudid (HYDROmorphone) 0.5 mg Route: IVP; Site: right forearm; tw5 21:36 Follow up: Pain 9/10 Adult; Response: No adverse reaction; Pain is unchanged, physician tw5 notified; RASS: Restless (+1) 21:35 Drug: Dilaudid (HYDROmorphone) 0.5 mg Route: IVP; Site: right wrist; tw5 22:34 Follow up: Pain 4/10 Adult; Response: No adverse reaction; Pain is decreased; RASS: tw5 Alert and Calm (0) 08/24 00:29 Drug: fentaNYL Patch (50 mcg/hr) 1 patches Route: Transdermal; Site: affected area; tw5 00:29 Follow up: Response: No adverse reaction; Medication administered at discharge. tw5 Outcome: 08/23 23:30 Discharge ordered by . sarah 08/24 00:30 Discharged to home via wheelchair. tw5 Condition: good Discharge instructions given to patient, family, Instructed on discharge instructions, follow up and referral plans. medication usage, Demonstrated understanding of instructions, follow-up care, Prescriptions given X 3. 00:30 Patient left the ED. tw5 Signatures: Dispatcher [employer] Rob Mendez MD MD cha Williams, Irene, RN RN iw Moreno, Amanda am2 Herrera, Deanna dh3 Wood, Tiffany tw5
--- NOTE | 2021-08-23 23:31 | EDPHYS ---
Physician Documentation [facility] Name: Alberto Botello Age: 71 yrs Sex: Female : 1950 Arrival Date: 08/23/2021 Time: 17:41 Bed 7 Private MD: Alis Jamison H ED Physician Rob Galo HPI: 08/23 20:34 This 71 yrs old Female presents to ER via Ambulatory with complaints of Abdominal sarah Pain, Back Pain. 20:34 The patient presents with pain that is acute, with no known mechanism of injury. The sarah symptoms are located in the left low back, left mid back, right mid back and right low back. 20:34 The patient presents with abdominal pain in the left upper quadrant, in the left lower sarah quadrant, abdominal distention in the upper abdomen, in the lower abdomen. Onset: The symptoms/episode began/occurred 2 day(s) ago. Onset: The symptoms/episode began/occurred 2 day(s) ago. The pain radiates to the lumbar area, left low back, left mid back, right mid back and right low back. Associated signs and symptoms: Pertinent positives: abdominal pain, nausea. The problem was sustained from unknown cause. Modifying factors: The patient symptoms are alleviated by nothing, the patient symptoms are aggravated by nothing. Severity of symptoms: At their worst the symptoms were moderate, in the emergency department the symptoms are unchanged. The symptoms radiate to back. Historical: - Allergies: 17:50 No Known Allergies; iw - Home Meds: 17:50 alprazolam 2 mg Oral tab 1 tab nightly [Active]; Amitiza 24 mcg Oral cap 1 cap iw [Active]; benztropine 0.5 mg Oral tab 1 tab 2 times per day [Active]; citalopram 20 mg tab 1 tab once daily [Active]; Linzess 145 mcg Oral cap 1 cap once daily [Active]; lisinopril 10 mg Oral tab 1 tab once daily [Active]; meclizine 25 mg Oral cap as needed [Active]; [place] 7.5-325 mg Oral tab 1 tab TID [Active]; Protonix 40 mg Oral TbEC 1 tab once daily [Active]; risperadone 0.5 daily [Active]; ursodiol 500 mg Oral tab daily [Active]; Vitamin D Oral 1000 unit daily [Active]; - PMHx: 17:50 Anxiety; Chronic pain; Diabetes - NIDDM; Hepatitis; Hypertension; Pancreatitis; iw Osteoporosis; - PSHx: 17:50 Cholecystectomy; iw - Immunization history:: Client reports receiving the 2nd dose of the Covid vaccine. - Social history:: Smoking status: Patient denies any tobacco usage or history of. - Family history:: not pertinent. ROS: 20:34 Constitutional: Negative for fever, chills, and weight loss, Eyes: Negative for injury, sarah pain, redness, and discharge, ENT: Negative for injury, pain, and discharge, Neck: Negative for injury, pain, and swelling, Cardiovascular: Negative for chest pain, palpitations, and edema, Respiratory: Negative for shortness of breath, cough, wheezing, and pleuritic chest pain, Back: Negative for injury and pain, : Negative for injury, bleeding, discharge, and swelling, MS/Extremity: Negative for injury and deformity, Skin: Negative for injury, rash, and discoloration, Neuro: Negative for headache, weakness, numbness, tingling, and seizure, Psych: Negative for depression, anxiety, suicide ideation, homicidal ideation, and hallucinations, Allergy/Immunology: Negative for hives, rash, and allergies, Endocrine: Negative for neck swelling, polydipsia, polyuria, polyphagia, and marked weight changes, Hematologic/Lymphatic: Negative for swollen nodes, abnormal bleeding, and unusual bruising. 20:34 Abdomen/GI: Positive for abdominal pain, nausea and vomiting, abdominal cramps, abdominal distension, of the right upper quadrant, left upper quadrant and left lower quadrant. Exam: 20:34 Constitutional: This is a well developed, well nourished patient who is awake, alert, sarah and in no acute distress. Head/Face: Normocephalic, atraumatic. Eyes: Pupils equal round and reactive to light, extra-ocular motions intact. Lids and lashes normal. Conjunctiva and sclera are non-icteric and not injected. Cornea within normal limits. Periorbital areas with no swelling, redness, or edema. ENT: Nares patent. No nasal discharge, no septal abnormalities noted. Tympanic membranes are normal and external auditory canals are clear. Oropharynx with no redness, swelling, or masses, exudates, or evidence of obstruction, uvula midline. Mucous membranes moist. Neck: Trachea midline, no thyromegaly or masses palpated, and no cervical lymphadenopathy. Supple, full range of motion without nuchal rigidity, or vertebral point tenderness. No Meningismus. Chest/axilla: Normal chest wall appearance and motion. Nontender with no deformity. No lesions are appreciated. Cardiovascular: Regular rate and rhythm with a normal S1 and S2. No gallops, murmurs, or rubs. Normal PMI, no JVD. No pulse deficits. Respiratory: Lungs have equal breath sounds bilaterally, clear to auscultation and percussion. No rales, rhonchi or wheezes noted. No increased work of breathing, no retractions or nasal flaring. Back: No spinal tenderness. No costovertebral tenderness. Full range of motion. Female : Normal external genitalia. Skin: Warm, dry with normal turgor. Normal color with no rashes, no lesions, and no evidence of cellulitis. MS/ Extremity: Pulses equal, no cyanosis. Neurovascular intact. Full, normal range of motion. Neuro: Awake and alert, GCS 15, oriented to person, place, time, and situation. Cranial nerves II-XII grossly intact. Motor strength 5/5 in all extremities. Sensory grossly intact. Cerebellar exam normal. Normal gait. Psych: Awake, alert, with orientation to person, place and time. Behavior, mood, and affect are within normal limits. 20:34 Abdomen/GI: Inspection: distension, that is moderate, Bowel sounds: active, all quadrants, Palpation: moderate abdominal tenderness, in the epigastric area, right upper quadrant, left upper quadrant and left lower quadrant, Liver: is firm, Hernia: not appreciated. 08/24 00:29 ECG was reviewed by the Attending Physician. [facility] Vital Signs: 08/23 17:51 BP 154 / 95; Pulse 92; Resp 16; Temp 98.4; Pulse Ox 95% on R/A; iw 20:14 BP 158 / 90; Pulse 80; Resp 20; Pulse Ox 100% on R/A; Pain 9/10; tw5 20:18 Pain 6/10; tw5 21:36 Pain 9/10; tw5 21:40 BP 150 / 79; Pulse 78; Resp 14; Pulse Ox 100% on R/A; Pain 9/10; tw5 22:33 BP 144 / 80; Pulse 81; Resp 18; Pulse Ox 96% on R/A; Pain 4/10; tw5 22:34 Pain 4/10; tw5 MDM: 19:21 Patient medically screened. sarah 20:41 Differential diagnosis: Abdominal Aortic Aneurysm Basilar Pneumonia Cholelithiasis sarah chronic back pain, Obesity Osteoporosis Perforated Ulcer Scoliosis bowel obstruction, cholecystitis, Cholelithiasis, diverticulitis, gastritis, GI Bleed, Hepatitis, Irritable bowel syndrome, myocardia ischemia or infarction, non-specific abd pain, pancreatitis, Peptic Ulcer Disease, Pyelonephritis, urinary tract infection. Data reviewed: vital signs, nurses notes, lab test result(s), cardiac enzymes, CBC, electrolytes, hepatic panel, EKG, radiologic studies, CT scan, plain films. Data interpreted: front desk monitor: rate is 80 beats/min, rhythm is regular, Pulse oximetry: on room air is 100 %. Test interpretation: by ED physician or midlevel provider: ECG, plain radiologic studies. Counseling: I had a detailed discussion with the patient and/or guardian regarding: the historical points, exam findings, and any diagnostic results supporting the discharge/admit diagnosis, lab results. 08/23 17:49 Order name: Basic Metabolic Panel; Complete Time: 19:24 08/23 17:49 Order name: CBC with Diff; Complete Time: 19:24 08/23 17:49 Order name: Hepatic Function; Complete Time: 19:24 08/23 17:49 Order name: Lipase; Complete Time: 19:24 08/23 18:37 Order name: Urine Dipstick-Ancillary; Complete Time: 19:24 [facility] 08/23 19:30 Order name: Magnesium; Complete Time: 21:34 [facility] 08/23 19:30 Order name: NT PRO-BNP [facility] 08/23 19:30 Order name: Troponin (emerg Dept Use Only); Complete Time: 21:34 [facility] 08/23 19:30 Order name: XRAY Chest (1 view); Complete Time: 21:34 [facility] 08/23 19:30 Order name: CT Abd/Pelvis - PO and IV Contrast [facility] 08/23 19:31 Order name: NT PRO-BNP; Complete Time: 21:34 [facility] 08/23 17:49 Order name: IV Saline Lock; Complete Time: 18:01 08/23 17:49 Order name: Labs collected and sent; Complete Time: 18:01 08/23 19:30 Order name: EKG; Complete Time: 19:31 [facility] 08/23 19:30 Order name: Cardiac monitoring; Complete Time: 19:45 [facility] 08/23 19:30 Order name: EKG - Nurse/Tech; Complete Time: 19:45 [facility] 08/23 19:30 Order name: O2 Per Protocol; Complete Time: 19:44 [facility] 08/23 19:30 Order name: O2 Sat Monitoring; Complete Time: 19:44 [facility] 08/23 19:30 Order name: Urine Dipstick-Ancillary (obtain specimen); Complete Time: 19:50 [facility] EC/13 00:29 Rate is 83 beats/min. Rhythm is regular. QRS [place] is Normal. NM interval is normal. QRS sarah interval is normal. QT interval is normal. No Q waves. T waves are Normal. No ST changes noted. Clinical impression: Normal ECG and No evidence of ischemia. Interpreted by me. Reviewed by me. Administered Medications: 08/23 20:15 Drug: NS 0.9% 500 ml Route: IV; Rate: bolus; Site: right forearm; tw5 20:15 Drug: NS 0.9% 1000 ml Route: IV; Rate: 125 ml/hr; Site: right forearm; tw5 20:15 Drug: Pepcid (famotidine) 20 mg Route: IVP; Site: right forearm; tw5 21:36 Follow up: Response: No adverse reaction tw5 20:15 Drug: morphine 2 mg Route: IVP; Site: right forearm; tw5 20:18 Follow up: Pain 6/10 Adult; Response: No adverse reaction; Pain is unchanged, physician tw5 notified; RASS: Alert and Calm (0) 20:15 Drug: Zofran (Ondansetron) 4 mg Route: IVP; Site: right forearm; tw5 20:17 Follow up: Response: No adverse reaction tw5 20:29 Drug: Dilaudid (HYDROmorphone) 0.5 mg Route: IVP; Site: right forearm; tw5 21:36 Follow up: Pain 9/10 Adult; Response: No adverse reaction; Pain is unchanged, physician tw5 notified; RASS: Restless (+1) 21:35 Drug: Dilaudid (HYDROmorphone) 0.5 mg Route: IVP; Site: right wrist; tw5 22:34 Follow up: Pain 4/10 Adult; Response: No adverse reaction; Pain is decreased; RASS: tw5 Alert and Calm (0) 08/24 00:29 Drug: fentaNYL Patch (50 mcg/hr) 1 patches Route: Transdermal; Site: affected area; tw5 00:29 Follow up: Response: No adverse reaction; Medication administered at discharge. tw5 Disposition Summary: 08/23/21 23:30 Discharge Ordered Location: Home [facility] Problem: new sarah Symptoms: have improved sarah Condition: Stable sarah Diagnosis - Abdominal tenderness sarah - Type 2 diabetes mellitus with hyperglycemia sarah - Chronic pain, not elsewhere classified sarah Followup: sarah - With: Alis Jamison, DO - When: 1 - 2 days - Reason: Recheck today's complaints, Continuance of care, Re-evaluation by your physician Discharge Instructions: - Discharge Summary Sheet sarah - Abdominal Pain, Adult sarah - Type 2 Diabetes Mellitus, Diagnosis, Adult sarah - Hyperglycemia sarah - Abdominal Pain, Adult, [id number] sarah - Hyperglycemia, [id number] sarah - Type 2 Diabetes Mellitus, Diagnosis, Adult, [id number] [facility] Forms: - Medication Reconciliation Form [facility] - Thank You Letter [facility] - Antibiotic Education [facility] - Prescription Opioid Use [facility] Prescriptions: - Pepcid 20 mg Oral Tablet - take 1 tablet by ORAL route every 12 hours for 10 days; 20 tablet; Refills: 0, [facility] Product Selection Permitted - Zofran 4 mg Oral Tablet - take 1 tablet by ORAL route every 12 hours As needed; 20 tablet; Refills: 0, [facility] Product Selection Permitted - dicyclomine 20 mg Oral Tablet - take 1 tablet by ORAL route 4 times per day; 28 tablet; Refills: 0, Product [facility] Selection Permitted Signatures: Dispatcher [employer] Rob Mendez MD MD cha Williams, Irene RN Yara Scott tw5
[2021-08-23] MEDS ORDERED: FENTANYL 25 MCG/PATCH TD ONE (23:35)
[2021-08-24] MEDS ORDERED: FENTANYL 50 MCG/PATCH TD ONE (00:11)
[2021-08-24 00:38] VITALS: TEMP 98.4
[2021-08-24 00:46] VITALS: BP 144/80; O2SAT 96
--- NOTE | 2021-08-25 12:13 | RAD REPORT ---
EXAM DESCRIPTION: CT - Abdomen Pelvis W Contrast - 08/24/2021 5:58 am CLINICAL HISTORY: 71 years Female ABD PAIN TECHNIQUE: Contiguous axial images obtained through the abdomen and pelvis following both oral and i ntravenous contrast administration. Coronal and sagittal reformatted images provided. This CT exam was performed according to our departmental dose-optimization program, which includes on e or more of the following dose reduction techniques: automated exposure control, adjustment of the m A and/or kV according to patient size, and/or use of iterative reconstruction technique. COMPARISON: 06/25/2021 FINDINGS: There is patchy bibasilar atelectasis. Patient again seen to be status post prior cholecystectomy and likely sphincterotomy with pneumobilia . The liver, pancreas, spleen, adrenal glands, kidneys, and urinary bladder are normal. There is no bowel inflammation, obstruction, free intraperitoneal air, or ascites. Prior appendectomy and hysterectomy. Atherosclerosis without abdominal aortic aneurysm or retroperitoneal hemorrhage. Prior L1 vertebropla sty. Healed left inferior pubic ramus fracture. Chronic degenerative changes in the spine. No acute f racture. IMPRESSION: No acute abdominal or pelvic abnormalities. Stable exam. Electronically signed by: Abbi Mas MD 08/23/2021 11:05 PM [employer]IST Due to temporary technical issues with the PACS/Fluency reporting system, reports are being signed by the in house radiologists without review as a courtesy to insure prompt reporting. The interpreting radiologist is fully responsible for the content of the report.
== END 2021-08-24 00:30 | disposition home or self-care (01) ==
LOC: ER 17:40
DX: E11.65 Type 2 diabetes mellitus with hyperglycemia (principal); G89.29 Other chronic pain; I10 Essential (primary) hypertension
CPT/HCPCS: 93005; 85025; 80048; 36415; 83735; 80076; 81003; 84484; 83690; 83880; 74177; 71045; 99284; Q9967; J2270; J1170 ×2; J7030; J2405

== ENCOUNTER 2021-10-10 09:34 | Emergency (ER) | payer OTHER ==
--- OUTSIDE RECORDS SUMMARY | 2021-10-10 09:43 | XMS REPORT | Continuity of Care Document ---
:1950 Author Organization [facility] t Address [address] [place] [address] Dr. Briseno[address] [place] [id number] Care Team Providers Name Role Phone Jamison Primary Care Physician Marible BURNETT Attending Clinician Unavailable JAWAID Attending Clinician Unavailable FU Attending Clinician Unavailable Fu DO Attending Clinician Doctor Unassigned, Name Attending Clinician [...] Expiration Date Brandy haywood MEDICARE A B [id number] 2021 00:00:00 [place] [id number] MEDICARE PART A [id number] \\T\\ B - MEDICARE [facility]-MEDICAID - [id number] MEDICAID MEDICARE PART A [id number] 2003 \\T\\ B 00:00:00 [place] [id number] 2013 00:00:00 Problems Condition Condition Condition Status Onset Resolution Last Treating Co mments Source Name Details Category Date Date Treatment Clinician Date Common Common Disease Active [facility] bile duct bile duct 8-24 Luke s - calculus calculus 00:00: Medica l 00 Center Abdominal Abdominal Disease Active [facility] pain pain 6 [facility] - 00:00: Medical 00 Center Closed Closed Disease Active Univers fracture fracture 7 ity of of first of first 00:00: [place] lumbar lumbar 00 Medical vertebra vertebra Branch with with routine routine healing healing Hypertensi Hypertensi Disease Active C HI St on on [facility] Diabetes Diabetes Disease Active [facility] t mellitus mellitus [facility] New onset New onset Problem Active [...] NO KNOWN Allergy Active [facility] ALL[facility] NO KNOWN Drug Active Univers ALLERGIE Class [facility] [place] [facility] [place] Family History Family Member Diagnosis Comments Start Date Stop Date Source Father Family history of [facility]y of [place] lung cancer Physicians Social History Social Habit Start Date Stop Date Quantity Comments Source Exposure to Not sure [facility] SARS-CoV-2 (event) Medica l Branch Tobacco use and 2021-05-07 2021-05-[address] [facility] - exposure 00:00:00 00:00:00 Medical Center Alcohol intake 2016-03-18 2016-03-18 0 [facility]d [facility] 00[facility]00 [facility] Sex Assigned At [birth year] [facility] 00:00:00 00:00:00 Medical Branch Smoking Status Start Date Stop Date Source Never smoker [facility] Medications Ordered Filled Start Stop Current Ordering Indication Dosage Frequency Signature Comments Components Source Medication Medication Date Date Medication? Clinician (SIG) Name Name iopamidol 2020-09 No [id number] 100mL 100 mL, Univers (ISOVUE 09-23 Intravenou ity o f 370-500 mL) 17:55: 17:55 s, ONCE, 1 [place] injection 00 :00 dose, On Medica l 100 mL [facility] 07/24/21 at 1215, Routine ondansetron 2020-09 4mg 4 mg, Slow Univers (ZOFRAN 09-23 IV Push, ity of (PF)) 17:45: 16:38 ONCE, 1 [place] injection 4 00 :00 dose, On Medi josephine mg [facility] 07/24/21 at 1145, Routine morpHINE 2020-09 Yes 4mg 4 mg, Slow Uni vers injection 4 09-23 IV Push, ity of mg 16:30: Q4HPRN, [place] 24 Starting Medical on Tue [place] 07/24/21 at 1030, Until Discontinu ed, Routine, [...] MCG 10:59: mouth Medical capsule 53 daily. [place] alendronate Yes 70mg Take [address] (FOSAMAX) 8-26 by mouth Lukes - 70 MG 10:59: every 7 Medical tablet 53 days Take Center in the morning with a full glass of water, on an empty stomach, and do not take anything else by mouth or lie down for the next 30 min. . HYDROcodone Yes 1{tbl} Q.80729339 Take [address] -acetaminop 8-26 [id number] tablet by Lukes - hen (NORCO 10:59: [...] next 30 min. . HYDROcodone Yes 1{tbl} Q.52701099 Take [address] -acetaminop 8-26 [id number] tablet by Lukes - hen (NORCO 10:59: 3D mouth 3 Medi josephine 5-325) 53 (three) Center 5-325 mg times per tablet daily. ursodioL Yes 500mg QD Take [address] (ACTIGALL) 8-26 mg by Lukes - 500 MG 10:59: mouth Medical tablet 53 daily. [place] ALPRAZolam Yes 2mg Take 2 mg CH [...] (two) Medical 53 times Center daily. omega-3 0 Yes 2g Q.5D Take 2 g CHI [...] MCG 10:59: mouth Medical capsule 53 daily. [place] alendronate Yes 70mg Take [address] (FOSAMAX) 8-26 by mouth Lukes - 70 MG 10:59: every 7 Medical tablet 53 days Take Center in the morning with a full glass of water, on an empty stomach, and do not take anything else by mouth or lie down for the next 30 min. . HYDROcodone Yes 1{tbl} Q.27810023 Take [address] -acetaminop 8-26 [id number] tablet by Lukes - hen (NORCO 10:59: 3D mouth 3 Medi josephine 5-325) 53 (three) Center 5-325 mg times per tablet daily. ursodioL Yes 500mg QD Take [address] (ACTIGALL) 8-26 mg by Lukes - 500 MG 10:59: mouth Medical tablet 53 daily. [place] ALPRAZolam Yes 2mg Take 2 mg CH [...] MCG 09:40: mouth Medical capsule 47 daily. [place] alendronate Yes 70mg Take [address] (FOSAMAX) 8-26 by mouth Lukes - 70 MG 09:40: every 7 Medical tablet 47 days Take Center in the morning with a full glass of water, on an empty stomach, and do not take anything else by mouth or lie down for the next 30 min. . HYDROcodone Yes 1{tbl} Q.60002601 Take [address] -acetaminop 8-26 [id number] tablet by Lukes - hen (NORCO 09:40: 3D mouth 3 Medi josephine 5-325) 47 (three) Center 5-325 mg times per tablet daily. ursodioL Yes 500mg QD Take [address] (ACTIGALL) 8-26 mg by Lukes - 500 MG 09:40: mouth Medical tablet 47 daily. [place] meclizine Yes [facility] (ANTIVERT) 6-21 [facility]ukes - 25 mg 00:00: Medical tablet 00 [place] meclizine Yes [facility] (ANTIVERT) 6-21 [facility]ukes - 25 mg 00:00: Medical tablet 00 [place] meclizine Yes [facility] (ANTIVERT) 6-21 Lukes - 25 mg 00:00: Medical tablet 00 [place] meclizine Yes [facility] (ANTIVERT) 6-21 [facility]ukes - 25 mg 00:00: Medical tablet 00 [place] Nortriptyli Nortriptyli Yes HOLLIE TAKE 1 Univers [...] TAKE 1.5 Univers Sulfate 30 Sulfate 30 -23 TABLET i ty of MG Oral MG [...] Take 30 mg Uni vers (AVINZA) 30 -07 by mouth ity of mg 24 hr 08:12: daily. [place] capsule 18 Medical Branch ALPRAZolam Yes 2mg Take 2 mg [place] (XANAX) 2 7-07 by mouth ity of mg tablet 08:12: at bedtime [place] 18 as needed Medical for Sleep. Branch amitriptyli Yes 10mg Take 10 mg Univers ne (ELAVIL) 7-07 by mouth ity of 10 mg 08:12: at [place] tablet 18 bedtime. Medical Branch morphine Yes 30mg Take 30 mg Uni vers (AVINZA) 30 7-07 by mouth ity of mg 24 hr 08:12: daily. [place] capsule 18 Medical Branch ALPRAZolam Yes 2mg [...] Immunizations Ordered Filled Immunization Date Status Comments [facility] e Immunization Name Name SARS-COV-2 COVID-19 2020-11-11 Completed Unive rsity of PFIZER VACCINE 00:00:00 [facility] SARS-COV-2 COVID-19 2020-11-11 Completed Unive rsity of PFIZER VACCINE 00:00:00 [facility] SARS-COV-2 COVID-19 2020-10-21 Completed Unive rsity of PFIZER VACCINE 00:00:00 [facility] SARS-COV-2 COVID-19 2020-10-21 Completed Unive rsity of PFIZER VACCINE 00:00:00 [facility] Vital Signs Vital Name Observation Time Observation Value Comments Source WEIGHT 2021-03-10 62.596 kg 11:08:00 Systolic blood 2021-07-24 144 mm[Hg] University of pressure 19:28:00 [facility] Diastolic blood 2021-07-24 90 mm[Hg] [place] o f pressure 19:28:00 [facility] Heart rate 2021-07-24 87 /min [facility] 19:28:00 [facility] Respiratory rate 2021-07-24 18 /min [facility] 19:28:00 [facility] Oxygen saturation 2021-07-24 97 /min [facility] in Arterial blood 19:28:00 [facility] by Pulse oximetry [place] Body temperature 2021-07-24 37 Carolann [facility] 16:20:00 [facility] Body weight 2021-07-24 61.236 kg [facility] 16:20:00 [facility] BMI 2021-07-24 25.51 kg/m2 [facility] 16:20:00 [facility] HEIGHT 2021-05-04 152.4 cm 17:29:00 WEIGHT 2021-05-04 61.689 kg 17:29:00 HEIGHT 2021-05-04 152.4 cm 17:29:00 WEIGHT 2021-05-04 61.689 kg 17:29:00 WEIGHT 2021-03-10 62.596 kg 11:08:00 Systolic blood 2021-05-07 156 mm[Hg] [facility] - pressure 08:00:00 [facility] Diastolic blood 2021-05-07 74 mm[Hg] [facility] - pressure 08:00:00 [facility] Heart rate 2021-05-07 76 /min [facility] - 08:00:00 [facility] Body temperature 2021-05-[address] [facility] - 08:00:00 [facility] Respiratory rate 2021-05-07 17 /min [facility] - 08:00:00 [facility] Oxygen saturation 2021-05-07 97 /min [facility] - in Arterial blood 08:00:00 Medical nter by Pulse oximetry Body height 2021-05-[address] [facility] - 17:29:00 [facility] Body weight 2021-05-[address] Jaylan - 17:29:00 [facility] BMI 2021-05-04 26.56 kg/m2 St Tian - 17:29:00 [facility] BP Systolic 2018-02-01 131 mm[Hg] Location: [facility] 08:36:00 Position: [place] Physician s Sitting BP Diastolic 2018-02-01 78 mm[Hg] Location: [facility] 08:36:00 Position: [place] Physician s Sitting Height 2018-02-01 60 [in_us] [facility] 08:36:00 [place] Physician s Weight 2018-02-01 117 [lb_av] [facility] 08:36:00 [place] Physician s Body Mass Index 2018-02-01 22.85 kg/m2 [facility] Calculated 08:36:00 [place] Physician s Heart Rate 2018-02-01 73 /min Location: [facility] 08:36:00 Brachial [place] Physician s Artery; Procedures Procedure Date / Time Performing Clinician Source Performed CT ABDOMEN PELVIS W 2021-07-24 18:00:55 Glenn Fu [facility] CONTRAST Medical Branch URINALYSIS 2021-07-24 17:39:00 Fu, [facility] LIPASE 2021-07-24 16:33:[facility]OLIC PANEL 2021-07-24 16:33:00 FuGlenn todd [facility] ([id number]) Medical Branch CBC WITH DIFF 2021-07-24 16:33:00 [facility] NOTICE OF PRIVACY 2021-07-24 16:11:11 Doctor Juan, [facility] PRACTICES [place] [facility] CONSENT/REFUSAL FOR 2021-07-24 16:10:58 Doctor Juan, [facility] DIAGNOSIS AND TREATMENT [place] [facility] [place] REPORT OF PROCEDURE - 2021-05-06 16:07:30 Juan Alberto Shelton I [place] - ENDOSCOPY [facility] ERCP,DIRECT VISUALIZATION 2021-05-06 15:00:00 Juan Alberto Shelton [facility] PROCEDURE W/ C-ARM 2021-05-06 15:00:00 Juan Alberto Shelton [facility] ERCP,BALLOON SWEEPING 2021-05-06 15:00:00 Juan Alberto Shelton [facility] CBC W/PLT COUNT & AUTO 2021-05-06 05:51:00 [facility] DIFFERENTIAL [facility] BASIC METABOLIC PANEL (7) 2021-05-06 05:51:00 Gadicherla, [facility] HEPATIC FUNCTION PANEL 2021-05-06 05:51:00 Gadicherjenny [facility] ABORH, MANUAL 2021-05-05 05:07:[address] [facility] TYPE AND SCREEN, 2021-05-05 04:14:00 Roxie [facility] PROTHROMBIN TIME/INR 2021-05-05 04:14:00 [facility] SARS-COV2/RT-PCR ([facility] & 2021-05-05 00:18:00 GadicherBritney alvarado [facility] - REF LABS) [facility] BLOOD GAS, VENOUS 2021-05-05 00:14:00 Roxie [facility] KETONE, BLOOD 2021-05-05 00:14:00 Roxie [facility] HIGH SENSITIVITY TROPONIN 2021-05-05 00:14:00 Cherie Faustin [facility] ED ECG INTERPRETATION 2021-05-04 23:15:17 Roxie [facility] BASIC METABOLIC PANEL (7) 2021-05-04 21:30:00 Cherie Faustin [facility] HEPATIC FUNCTION PANEL 2021-05-04 21:30:00 Roxie [facility] AMYLASE 2021-05-04 21:30:00 Roxie [facility] LIPASE 2021-05-04 21:30:00 Roxie [facility] CBC W/PLT COUNT & AUTO 2021-05-04 19:37:00 Roxie [facility] ECG 12-LEAD 2021-05-04 19:22:33 Unknown, Hl7 Doctor [facility] POCT-GLUCOSE METER 2021-03-11 08:21:00 Jessica Boone [facility] COMPREHENSIVE METABOLIC 2021-03-11 06:09:00 [facility] [facility] REPORT OF PROCEDURE - 2021-03-10 23:43:51 Kathy [facility] POCT-GLUCOSE METER 2021-03-10 16:43:00 [facility] POCT-GLUCOSE METER 2021-03-10 12:45:00 Paolo [facility] ERCP 2021-03-10 12:02:00 Desiree Duggan [facility] ERCP,PAPILLOTOMY 2021-03-10 11:31:00 Kathy [facility] PROCEDURE W/ C-ARM 2021-03-10 11:31:00 Kathy [facility] ERCP,BALLOON SWEEPING 2021-03-10 11:31:00 Kathy [facility] POCT-GLUCOSE METER 2021-03-10 09:07:00 Paolo [facility] CBC (HEMOGRAM ONLY) 2021-03-10 04:50:00 OviedoClive [facility] COMPREHENSIVE METABOLIC 2021-03-10 04:50:00 [facility] HEMOGLOBIN A1C 2021-03-10 04:50:[address] [facility] POCT-GLUCOSE METER 2021-03-09 23:54:00 [facility] SARS-COV2/RT-PCR ([facility] & 2021-03-09 20:13:00 Desiree Duggan [facility] - REF LABS) [facility] POCT-GLUCOSE METER 2021-03-09 17:22:00 [facility] MR ABDOMEN WITHOUT IV 2021-03-09 15:38:00 [facility] CONTRAST MRCP [facility] POCT-GLUCOSE METER 2021-03-09 12:22:00 [facility] URINALYSIS W/ REFLEX 2021-03-09 10:56:00 [facility] URINE CULTURE [facility] HEPATIC FUNCTION PANEL 2021-03-09 05:25:00 [facility] PROTHROMBIN TIME/INR 2021-03-09 05:25:[address] [facility] MAGNESIUM 2021-03-09 05:25:[address] [facility] BASIC METABOLIC PANEL (7) 2021-03-09 05:25:00 [facility] CBC W/PLT COUNT & AUTO 2021-03-09 05:25:00 [facility] DIFFERENTIAL [facility] HEMOGLOBIN A1C 2021-03-09 05:25:[address] [facility] MRI Brain wo contrast 2018-02-08 00:00:00 [facility] [id number] Physicians MRI Brain w/wo contrast 2018-02-01 00:00:00 [facility] [address] Physicians History of Gallbladder [facility] surgery Physicians Plan of Care Planned Activity Planned Date Details Comments Source Future Scheduled 2021-09-09 Hemoglobin A1c [facility] - Test 00:00:00 [facility] Medical Center (procedure) [code = 78629470] Future Scheduled 2021-09-[address] [facility] - Test 00:00:00 measurement Medical Center (procedure) [code = 69670173] Future Scheduled 2021-09-[address] [facility] [address] [facility] - Test 00:00:00 measurement Medical Center (procedure) [code = 16574173] Future Scheduled 2021-09-[address] [facility] [facility] - Test 00:00:00 measurement Medical Center (procedure) [code = 34896021] Future Scheduled 2021-05-13 INFLUENZA VACCINE (#1) C [...] Lukes - Test 00:00:00 (1 of 1 [facility] ONGO27_Ngycqxg PCV13) [code = PNEUMOCOCCAL 65+ YRS (1 of 1 - EITI17_Vqfztpo PCV13)] Future Scheduled 2013 PNEUMOCOCCAL 65+ YRS [facility] - Test 00:00:00 (1 of 1 [facility] ZIZX71_Ulrpmch PCV13) [code = PNEUMOCOCCAL 65+ YRS (1 of 1 - TALA38_Fjwbbti PCV13)] Future Scheduled 2013 PNEUMOCOCCAL 65+ YRS [facility] - Test 00:00:00 (1 of 1 [facility] KNGG11_Mhnhekp PCV13) [code = PNEUMOCOCCAL 65+ YRS (1 of 1 - XWJC17_Xtkhyhp PCV13)] Future Scheduled 2013 PNEUMOCOCCAL 65+ YRS [facility] - Test 00:00:00 (1 of 1 [facility] WPUT96_Zcvowwt PCV13) [code = PNEUMOCOCCAL 65+ YRS (1 of 1 - ETTT89_Nwhnqqz PCV13)] Future Scheduled 2004-10-14 MEDICARE ANNUAL CHI [...] 00:00:00 examination Medical Center (regime/therapy) [code = 571719650] Future Scheduled 1958 Urine screening for [facility] - Test 00:00:00 protein (procedure) Medical Center [code = 044882516] Future Scheduled 1960 DIABETIC EYE EXAM [facility] - Test 00:00:00 [code = DIABETIC EYE Medical Center EXAM] Future Scheduled [address] [facility] - Test 00:00:00 examination Medical Center (regime/therapy) [code = 889770115] Future Scheduled 1958 Urine screening [facility] - Test 00:00:00 protein (procedure) Medical Center [code = 755672332] Future Scheduled 1960 DIABETIC EYE EXAM [facility] - Test 00:00:00 [code = DIABETIC EYE Medical Center EXAM] Future Scheduled [address] [facility] - Test 00:00:00 examination Medical Center (regime/therapy) [code = 125727854] Future Scheduled 1958 Urine screening [facility] - Test 00:00:00 protein (procedure) Medical Center [code = 789198537] Future Scheduled 1958 DIABETIC EYE EXAM [facility] - Test 00:00:00 [code = DIABETIC EYE Medical Center EXAM] Future Scheduled [address] [facility] - Test 00:00:00 examination Medical Center (regime/therapy) [code = 998262015] Future Scheduled 1958 Urine screening [facility] - Test 00:00:00 protein (procedure) Medical Center [code = 541109399] Future Scheduled [address] [facility] - Test 00:00:00 malignant neoplasm of Medica l Center breast (procedure) [code = 431216031] Future Scheduled [address] [facility] - Test 00:00:00 malignant neoplasm of Medica l Center colon (procedure) [code = 281094811] Future Scheduled [address] [facility] - Test 00:00:00 malignant neoplasm of Medica l Center breast (procedure) [code = 744071631] Future Scheduled [address] [facility] - Test 00:00:00 malignant neoplasm of Medica l Center colon (procedure) [code = 463284570] Future Scheduled [address] [facility] - Test 00:00:00 malignant neoplasm of Medica l Center breast (procedure) [code = 491636808] Future Scheduled [address] [facility] - Test 00:00:00 malignant neoplasm of Medica l Center colon (procedure) [code = 467770622] Future Scheduled [address] [facility] - Test 00:00:00 malignant neoplasm of Medica l Center breast (procedure) [code = 686674729] Future Scheduled [address] [facility] - Test 00:00:00 malignant neoplasm of Medica l Center colon (procedure) [code = 900982712] Encounters Start End Encounter Admission Attending Care Care Encounter Source Date/Time Date/Time Type Type Clinicians Facility Department ID 2021-06-21 Inpatient ER TERESA BURNETT Gastro [id number] [facility] 02:39:12 [place] 2021-08-10 2021-08-10 Outpatient MCKAY, SUYAPA [facility] [id number] [facility] 10:38:01 17:18:04 LEV Woodard e of Medicin e 2021-07-24 2021-07-24 Emergency X [facility] ERT [id number] Univers 10:12:00 14:31:00 GLENN reynolds of [facility] 2021-07-24 2021-07-24 Emergency [facility] [id number] Univers 10:12:00 14:31:00 Glenn TANMAY [id number] i ty [facility] [id number] [facility] [id number] [facility] 084 Branch 2021-07-24 2021-07-24 Orders Doctor HEAVEN [id number] [facility] 00:00:00 00:00:00 Only Unassigned, ARIS [id number] ity of [facility] [id number] [facility] [id number] [facility] 009 Branch 2021-05-04 2021-05-07 Hospital ER Cherie Faustin [facility] [id number] 17:37:00 10:59:00 [facility] 2021-05-06 2021-05-06 Anesthesia Denise Quispe [facility] [id number] 15:10:00 16:27:00 Event Jm Rushing [facility] 2021-05-06 2021-05-06 Surgery Nikita, [facility] [id number] 13:00:00 14:30:00 [facility] 2021-05-05 2021-05-05 Travel [facility] [id number] [facility] 00:[facility]:00 00:00:00 [facility] 2021-05-04 2021-05-04 Outpatient [facility] [id number] [facility] 00:00:00 23:59:00 [facility] 2021-05-04 2021-05-04 Emergency ER [facility] [id number] [facility] 17:24:00 17:24:00 2021-05-04 2021-05-04 Orders [facility] [id number] 00:00:00 00:00:00 Only [facility] 2021-05-04 2021-05-04 Travel [facility] [id number] [facility] 00:[facility]:00 00:00:00 [facility] 2021-05-01 2021-05-01 Emergency [id number] 16:21:00 22:56:00 SABHA 2021-03-13 2021-03-13 Telephone Debbiesalomon [facility] [id number] 00:00:00 00:00:00 Tyesha Galina [facility] 2021-03-08 2021-03-11 Hospital ER Curtis Burnett Maribel [facility] [id number] 23:13:00 11:35:00 [facility] 2021-03-10 2021-03-10 Surgery Kathy [facility] [id number] 11:00:00 12:30:00 [facility] 2021-03-10 2021-03-10 Anesthesia Josef [facility] [id number] 11:36:00 12:27:00 Event Graciela jessica - Ricafren[facility] Medic al [place] 2018-02-01 2018-02-01 Appointmen DOMENICO [facility] Neurology [id number] Univers 08:00:00 08:00:00 HOLLIE Adair, Miguel Angel Callahan M.D. Physici ans Results Test Description Test Time Test Comments Results Result Comments Source COMP. METABOLIC PANEL (91687) 2021-07-24 17:14:29 Test Item Value Reference Range Interpretation Comme nts NA (test code = 3871744818) 139 mmol/L 135-145 K (test code = 3527633893) 4.3 mmol/L 3.5-5.0 CL (test code = 6468199242) 104 mmol/L 98-108 CO2 TOTAL (test code = 8563925951) 24 mmol/L 23-31 AGAP (test code = 5167865707) 2-16 BUN (test code = 3039743376) 18 mg/dL 7-23 GLUCOSE (test code = 3941986816) 104 mg/dL 70-110 CREATININE (test code = 1.39 mg/dL 0.50-1.04 H 2835059262) TOTAL BILI (test code = 0.4 mg/dL 0.1-1.0 4139974619) CALCIUM (test code = 2457324051) 9.6 mg/dL 8.6-10.6 T PROTEIN (test code = 6252238483) 8.4 g/dL 6.3-8.2 H ALBUMIN (test code = 0818101718) 4.6 g/dL 3.5-5.0 ALK PHOS (test code = 1848281928) 93 U/L 34-122 ALTv (test code = 1742-6) 44 U/L 5-35 H AST(SGOT) (test code = 2769076456) 48 U/L 13-40 H eGFR (test code = 4148449671) mL/min/1.73m2 TORRES (test code = TORRES) Association [...] tests). Lab Interpretation (test code = Abnormal 81580-6) [facility]13[facility]49 Test Item Value Reference Range Interpretation Comments LIPASE (test code = 6729381694) 266 U/L 0-220 H Lab Interpretation (test code = Abnormal 89006-6) [facility] [id number] 17:03:27 Test Item Value Reference Range Interpretation Comments WBC (test code = See_Comment [Automated 3501-2) message] The sy stem which generated this result transmitted reference range : 4.30 - 11.10 10*3/?L. The reference range was not used to interpret this result as normal/abnormal . RBC (test code = See_Comment [Automated 369-8) message] The sy stem which generated this [...] RDW-SD (test code = 48.4 fL 39.0-49.9 73342-9) RDW-CV (test code = 13.8 % 12.0-15.5 788-0) PLT (test code = See_Comment [Automated 067-3) message] The sy stem which generated this result transmitted reference range : 166 - 358 10*3/ ?L. The reference r becca was not used to interpret this result as normal/abnormal . MPV (test code = 9.1 fL 9.5-12.9 L 43787-6) NRBC/100 WBC (test See_Comment [Automat ed code = 9859205707) message] The system which generated this result transmitted reference range : 0.0 - 10.0 /100 WBCs. The refer ence range was not u sed to interpret th is result as normal/abnormal . NRBC x10^3 (test code <0.01 See_Comment [Auto mated = [id number]) message] The s ystem which generated this result transmitted reference range : 10*3/?L. The reference range was not used to interpret this result as normal/abnormal . GRAN MAT (NEUT) % 64.8 % (test code = 770-8) IMM GRAN % (test code 0.90 % = [id number]) LYMPH % (test code = 24.2 % 736-9) MONO % (test code = 8.2 % 5905-5) EOS % (test code = 1.4 % 713-8) BASO % (test code = 0.5 % 706-2) GRAN MAT x10^3(ANC) 5.59 10*3/uL 1.88-7.09 (test code = 8836329104) IMM GRAN x10^3 (test 0.08 10*3/uL 0.00-0.06 H code = [id number]) LYMPH x10^3 (test code 2.09 10*3/uL 1.32-3.29 = 731-0) MONO x10^3 (test code 0.71 10*3/uL 0.33-0.92 = 742-7) EOS x10^3 (test code = 0.12 10*3/uL 0.03-0.39 711-2) BASO x10^3 (test code 0.04 10*3/uL 0.01-0.07 = 704-7) Lab Interpretation Abnormal (test code = 01006-3) [facility] metabolic [id number] 07:08:00 Test Item Value Reference Range Interpretation Comments Sodium (test code = 139 meq/L 477-434 1803-2) Potassium (test 4.1 meq/L 3.5-5.1 code = 2823-3) Chloride (test code 107 meq/L 98-107 = 2075-0) CO2 (test code = 25 meq/L 22-29 2027-9) BUN (test code = 13 mg/dL 7-21 3094-0) Creatinine (test 0.97 mg/dL 0.57-1.25 code = 2160-0) Glucose (test code 80 mg/dL 70-105 = 2345-7) Calcium (test code 8.9 mg/dL 8.4-10.2 = 46042-9) EGFR (test code = 56 mL/min/1.[address] [place] [address]-4) NOT ACCURATE CREATININE CLEARANCE IN PREDICTING GLOMERULAR FILTRATION RATE . ESTIMATED GFR I S NOT APPLICABLE FOR DIALYSIS PATIEN TORRES (test code = Immigration Officer ID - TORRES) TO[facility]ITO [facility]acho [facility] [id number] 07:08:00 Test Item Value Reference Range Interpretation Comments Protein, Total (test 6.9 See_Comment [Autom ated code = 2885-2) message] The system which generated this result transmit lane reference range : 6.0 - 8.3 gm/dL . The reference range was not u sed to interpret th is result as normal/abnormal . Albumin (test code = 3.6 g/dL 3.5-5 51904-1) Total Bilirubin (test 0.3 mg/dL 0.2-1.2 code = 1974-2) Bilirubin, Direct 0.2 mg/dL 0.1-0.5 (test code = 1967-7) Alkaline Phosphatase 56 U/L 40-150 (test code = 6768-6) AST (test code = 37 U/L 5-34 H 1920-8) ALT (test code = 50 U/L 6-55 2-6) TORRES (test code = TORRES) Immigration Officer ID - TOÑITO Camacho Lab Interpretation Abnormal (test code = 32367-8) [facility] [id number] 07:08:00 Test Item Value Reference Range Interpretation Comments Sodium (test code = 139 meq/L 078-836 9063-2) Potassium (test 4.1 meq/L 3.5-5.1 code = 2823-3) Chloride (test code 107 meq/L 98-107 = 2075-0) CO2 (test code = 25 meq/L -2027-) BUN (test code = 13 mg/dL 7-21 3094-0) Creatinine (test 0.97 mg/dL 0.57-1.25 code = 2160-0) Glucose (test code 80 mg/dL 70-105 = 2345-7) Calcium (test code 8.9 mg/dL 8.4-10.2 = 74587-2) EGFR (test code = 56 mL/min/1.[address] [place] [address]-1) NOT ACCURATE CREATININE CLEARANCE IN PREDICTING GLOMERULAR FILTRATION RATE . ESTIMATED GFR I S NOT APPLICABLE FOR DIALYSIS PATIEN TORRES (test code = Immigration Officer ID - TORRES) TO[facility]ITO [facility]acho [facility] [id number] 07:08:00 Test Item Value Reference Range Interpretation Comments Protein, Total (test 6.9 See_Comment [Autom ated code = 2885-2) message] The system which generated this result transmit lane reference range : 6.0 - 8.3 gm/dL . The reference range was not u sed to interpret th is result as normal/abnormal . Albumin (test code = 3.6 g/dL 3.5-5 26986-2) Total Bilirubin (test 0.3 mg/dL 0.2-1.2 code = 1975-2) Bilirubin, Direct 0.2 mg/dL 0.1-0.5 (test code = 1967-7) Alkaline Phosphatase 56 U/L 40-150 (test code = 6768-6) AST (test code = 37 U/L 5-34 H 1920-8) ALT (test code = 50 U/L 6-55 1742-6) TORRES (test code = TORRES) Immigration Officer ID - TOÑITO Camacho Lab Interpretation Abnormal (test code = 82695-3) [facility] [id number] 07:08:00 Test Item Value Reference Range Interpretation Comments Sodium (test code = 139 meq/L 669-137 7603-2) Potassium (test 4.1 meq/L 3.5-5.1 code = 2823-3) Chloride (test code 107 meq/L 98-107 = 2075-0) CO2 (test code = 25 meq/L 22-29 2027-9) BUN (test code = 13 mg/dL 7-21 3094-0) Creatinine (test 0.97 mg/dL 0.57-1.25 code = 2160-0) Glucose (test code 80 mg/dL 70-105 = 2345-7) Calcium (test code 8.9 mg/dL 8.4-10.2 = 32545-4) EGFR (test code = 56 mL/min/1.[address] [place] [address]-5) NOT ACCURATE CREATININE CLEARANCE IN PREDICTING GLOMERULAR FILTRATION RATE . ESTIMATED GFR I S NOT APPLICABLE FOR DIALYSIS PATIEN TORRSE (test code = Immigration Officer ID - TORRES) TO[facility]ITO [facility]acho [facility] [id number] 07:08:00 Test Item Value Reference Range Interpretation Comments Protein, Total (test 6.9 See_Comment [Autom ated code = 2885-2) message] The system which generated this result transmit lane reference range : 6.0 - 8.3 gm/dL . The reference range was not u sed to interpret th is result as normal/abnormal . Albumin (test code = 3.6 g/dL 3.5-5 25095-1) Total Bilirubin (test 0.3 mg/dL 0.2-1.2 code = 1974-2) Bilirubin, Direct 0.2 mg/dL 0.1-0.5 (test code = 1967-7) Alkaline Phosphatase 56 U/L 40-150 (test code = 6768-6) AST (test code = 37 U/L 5-34 H 1920-8) ALT (test code = 50 U/L 6-55 1742-6) TORRES (test code = TORRES) Immigration Officer ID - TOÑITO Camacho Lab Interpretation Abnormal (test code = 33904-1) [facility] [id number] 07:08:00 Test Item Value Reference Range Interpretation Comments Sodium (test code = 139 meq/L 403-206 0728-2) Potassium (test 4.1 meq/L 3.5-5.1 code = 2823-3) Chloride (test code 107 meq/L 98-107 = 2075-0) CO2 (test code = 25 meq/L -2027-9) BUN (test code = 13 mg/dL 7-21 3094-0) Creatinine (test 0.97 mg/dL 0.57-1.25 code = 2160-0) Glucose (test code 80 mg/dL 70-105 = 2345-7) Calcium (test code 8.9 mg/dL 8.4-10.2 = 89927-2) EGFR (test code = 56 mL/min/1.[address] [place] [address]-6) NOT ACCURATE CREATININE CLEARANCE IN PREDICTING GLOMERULAR FILTRATION RATE . ESTIMATED GFR I S NOT APPLICABLE FOR DIALYSIS PATIEN TORRES (test code = Immigration Officer ID - TORRES) TOÑITO [facility]acho [facility] [id number] 07:08:00 Test Item Value Reference Range Interpretation Comments Protein, Total (test 6.9 See_Comment [Autom ated code = 3105-2) message] The system which generated this result transmit lane reference range : 6.0 - 8.3 gm/dL . The reference range was not u sed to interpret th is result as normal/abnormal . Albumin (test code = 3.6 g/dL 3.5-5 59185-0) Total Bilirubin (test 0.3 mg/dL 0.2-1.2 code = 1974-2) Bilirubin, Direct 0.2 mg/dL 0.1-0.5 (test code = 1968-7) Alkaline Phosphatase 56 U/L 40-150 (test code = 6768-6) AST (test code = 37 U/L 5-34 H 1920-8) ALT (test code = 50 U/L 6-55 1742-6) TORRES (test code = TORRES) Immigration Officer ID - PIAYA L Lab Interpretation Abnormal (test code = 27762-7) [facility] [id number] 07:08:00 Test Item Value Reference Range Interpretation [...] S NOT APPLICABLE FOR DIALYSIS PATIEN TS. Immigration Officer ID - PIAYA LHEPATIC FUNCTION [id number] 07:08:00 Test Item Value Reference Range Interpretation [...] (test code = 50 U/L 6-55 347) Immigration Officer ID - PIJOVANNI LCBC with platelet count + automated [id number] 06:01:00 Test Item Value Reference Range Interpretation Comments WBC (test code = 6690-2) 7.9 See_Comment [A utomated message] The system Yast generated this result transmitted ref erence range: 3.5 - 10 .5 K/L. The refe rence range was not u sed to interpret this result as normal/abnor mal. RBC (test code = 789-8) 3.22 See_Comment L [Au tomated message] The system Yast generated this result transmitted ref erence range: 3.93 - 5 .22 M/L. The refe rence range was not u sed to interpret this result as normal/abnor mal. MCHC (test code = 786-4) 31.8 See_Comment L [A utomated message] The system Yast generated this result transmitted ref erence range: [...] See_Comment [Aut omated message] 777-3) The system Yast generated this result transmitted ref erence range: 150 - 45 0 K/CU MM. The referen ce range was not u sed to interpret this result as normal/abnor mal. MPV (test code = 8.9 fL 9.4-12.3 L 74962-9) nRBC (test code = 413) 0 See_Comment [Aut omated message] The system Yast generated this result transmitted ref erence range: [...] See_Comment [Aut omated message] 670) The system Yast generated this result transmitted ref erence range: 1.56 - 6 .13 K/L. The refe rence range was not u sed to interpret this result as normal/abnor mal. # Lymphs (test code = 2.20 See_Comment [Auto mated message] 414) The system Yast generated this result transmitted ref erence range: 1.18 - 3 .74 K/L. The refe rence range was not u sed to interpret this result as normal/abnor mal. # Monos (test code = 0.54 See_Comment H [Autom ated message] 415) The system Yast generated this result transmitted ref erence range: 0.24 - 0 .36 K/L. The refe rence range was not u sed to interpret this result as normal/abnor mal. # Eos (test code = 416) 0.08 See_Comment [Au tomated message] The system Yast generated this result transmitted ref erence range: 0.04 - 0 .36 K/L. The refe rence range was not u sed to interpret this result as normal/abnor mal. # Baso (test code = 417) 0.03 See_Comment [A utomated message] The system Yast generated this result transmitted ref erence range: 0.01 - 0 .08 K/L. The refe rence range was not u sed to interpret this result as normal/abnor mal. Immature 0 % 0-1 Granulocytes-Relative (test code = 2801) Lab Interpretation (test Abnormal code = 64413-8) [facility] with platelet count + automated [id number] 06:01:00 Test Item Value Reference Range Interpretation Comments WBC (test code = 6690-2) 7.9 See_Comment [A utomated message] The system Yast generated this result transmitted ref erence range: 3.5 - 10 .5 K/L. The refe rence range was not u sed to interpret this result as normal/abnor mal. RBC (test code = 789-8) 3.22 See_Comment L [Au tomated message] The system Yast generated this result transmitted ref erence range: 3.93 - 5 .22 M/L. The refe rence range was not u sed to interpret this result as normal/abnor mal. MCHC (test code = 786-4) 31.8 See_Comment L [A utomated message] The system Yast generated this result transmitted ref erence range: [...] See_Comment [Aut omated message] 777-3) The system Yast generated this result transmitted ref erence range: 150 - 45 0 K/CU MM. The referen ce range was not u sed to interpret this result as normal/abnor mal. MPV (test code = 8.9 fL 9.4-12.3 L 93503-4) nRBC (test code = 413) 0 See_Comment [Aut omated message] The system Yast generated this result transmitted ref erence range: [...] See_Comment [Aut omated message] 670) The system Yast generated this result transmitted ref erence range: 1.56 - 6 .13 K/L. The refe rence range was not u sed to interpret this result as normal/abnor mal. # Lymphs (test code = 2.20 See_Comment [Auto mated message] 414) The system Yast generated this result transmitted ref erence range: 1.18 - 3 .74 K/L. The refe rence range was not u sed to interpret this result as normal/abnor mal. # Monos (test code = 0.54 See_Comment H [Autom ated message] 415) The system Yast generated this result transmitted ref erence range: 0.24 - 0 .36 K/L. The refe rence range was not u sed to interpret this result as normal/abnor mal. # Eos (test code = 416) 0.08 See_Comment [Au tomated message] The system Yast generated this result transmitted ref erence range: 0.04 - 0 .36 K/L. The refe rence range was not u sed to interpret this result as normal/abnor mal. # Baso (test code = 417) 0.03 See_Comment [A utomated message] The system Yast generated this result transmitted ref erence range: 0.01 - 0 .08 K/L. The refe rence range was not u sed to interpret this result as normal/abnor mal. Immature 0 % 0-1 Granulocytes-Relative (test code = 2801) Lab Interpretation (test Abnormal code = 76796-0) [facility] with platelet count + automated [id number] 06:01:00 Test Item Value Reference Range Interpretation Comments WBC (test code = 6690-2) 7.9 See_Comment [A utomated message] The system Yast generated this result transmitted ref erence range: 3.5 - 10 .5 K/L. The refe rence range was not u sed to interpret this result as normal/abnor mal. RBC (test code = 789-8) 3.22 See_Comment L [Au tomated message] The system Yast generated this result transmitted ref erence range: 3.93 - 5 .22 M/L. The refe rence range was not u sed to interpret this result as normal/abnor mal. MCHC (test code = 786-4) 31.8 See_Comment L [A utomated message] The system Yast generated this result transmitted ref erence range: [...] code = 282 See_Comment [Aut omated message] 687-3) The system Yast generated this result transmitted ref erence range: 150 - 45 0 K/CU MM. The referen ce range was not u sed to interpret this result as normal/abnor mal. MPV (test code = 8.9 fL 9.4-12.3 L 29112-1) nRBC (test code = 413) 0 See_Comment [Aut omated message] The system Yast generated this result transmitted ref erence range: [...] See_Comment [Aut omated message] 670) The system Yast generated this result transmitted ref erence range: 1.56 - 6 .13 K/L. The refe rence range was not u sed to interpret this result as normal/abnor mal. # Lymphs (test code = 2.20 See_Comment [Auto mated message] 414) The system Yast generated this result transmitted ref erence range: 1.18 - 3 .74 K/L. The refe rence range was not u sed to interpret this result as normal/abnor mal. # Monos (test code = 0.54 See_Comment H [Autom ated message] 415) The system Yast generated this result transmitted ref erence range: 0.24 - 0 .36 K/L. The refe rence range was not u sed to interpret this result as normal/abnor mal. # Eos (test code = 416) 0.08 See_Comment [Au tomated message] The system Yast generated this result transmitted ref erence range: 0.04 - 0 .36 K/L. The refe rence range was not u sed to interpret this result as normal/abnor mal. # Baso (test code = 417) 0.03 See_Comment [A utomated message] The system Yast generated this result transmitted ref erence range: 0.01 - 0 .08 K/L. The refe rence range was not u sed to interpret this result as normal/abnor mal. Immature 0 % 0-1 Granulocytes-Relative (test code = 2801) Lab Interpretation (test Abnormal code = 28168-6) [facility] with platelet count + automated [id number] 06:01:00 Test Item Value Reference Range Interpretation Comments WBC (test code = 6690-2) 7.9 See_Comment [A utomated message] The system Yast generated this result transmitted ref erence range: 3.5 - 10 .5 K/L. The refe rence range was not u sed to interpret this result as normal/abnor mal. RBC (test code = 789-8) 3.22 See_Comment L [Au tomated message] The system Yast generated this result transmitted ref erence range: 3.93 - 5 .22 M/L. The refe rence range was not u sed to interpret this result as normal/abnor mal. MCHC (test code = 786-4) 31.8 See_Comment L [A utomated message] The system Yast generated this result transmitted ref erence range: [...] See_Comment [Aut omated message] 777-3) The system Yast generated this result transmitted ref erence range: 150 - 45 0 K/CU MM. The referen ce range was not u sed to interpret this result as normal/abnor mal. MPV (test code = 8.9 fL 9.4-12.3 L 66458-3) nRBC (test code = 413) 0 See_Comment [Aut omated message] The system Yast generated this result transmitted ref erence range: [...] See_Comment [Aut omated message] 670) The system Yast generated this result transmitted ref erence range: 1.56 - 6 .13 K/L. The refe rence range was not u sed to interpret this result as normal/abnor mal. # Lymphs (test code = 2.20 See_Comment [Auto mated message] 414) The system Yast generated this result transmitted ref erence range: 1.18 - 3 .74 K/L. The refe rence range was not u sed to interpret this result as normal/abnor mal. # Monos (test code = 0.54 See_Comment H [Autom ated message] 415) The system Yast generated this result transmitted ref erence range: 0.24 - 0 .36 K/L. The refe rence range was not u sed to interpret this result as normal/abnor mal. # Eos (test code = 416) 0.08 See_Comment [Au tomated message] The system Yast generated this result transmitted ref erence range: 0.04 - 0 .36 K/L. The refe rence range was not u sed to interpret this result as normal/abnor mal. # Baso (test code = 417) 0.03 See_Comment [A utomated message] The system Yast generated this result transmitted ref erence range: 0.01 - 0 .08 K/L. The refe rence range was not u sed to interpret this result as normal/abnor mal. Immature 0 % 0-1 Granulocytes-Relative (test code = 2801) Lab Interpretation (test Abnormal code = 24788-7) [facility] W/PLT COUNT & AUTO [id number] 06:01:00 Test Item Value Reference Range Interpretation [...] 0-1 PERCENT (BEAKER) (test code = 2801) [facility] [place] 12 [id number] 06:47:19Interface, External Ris In - 05/05/2021 6:47 AM CDTVentricular Rate 91 BPMAtrial Rate 91 BPMP-R Interval 126 msQRS Duration 78 msQ-T Interval 352 msQTC Calculation(Bazett) 432 msP [place] 44 degreesR [place] 28 degreesT [place] 39 degreesNormal sinus rhythmNormal ECGNo previous ECGs availableConfirmed by MD BELLAMY JOSEPH P ([id number]) on 05/05/2021 6:47:15 [facility] 12 [id number] 06:47:19Interface, External Ris In - 05/05/2021 6:47 AM CDTVentricular Rate 91 BPMAtrial Rate 91 BPMP-R Inte rval 126 msQRS Duration 78 msQ-T Interval 352 msQTC Calculation(Bazett) 432 msP [place] 44 degreesR [place] 28 degreesT [place] 39 degreesNormal sinus rhythmNormal ECGNo previous ECGs availableConfirmed by MD BELLAMY JOSEPH P ([id number]) on 05/05/2021 6:47:15 [place] [address] [id number] 06:47:19Interface, External Ris In - 05/05/2021 6:47 AM CDTVentricular Rate 91 BPMAtrial Rate 91 BPMP-R Interval 126 msQRS Duration 78 msQ-T Interval 352 msQTC Calculation(Bazett) 432 msP [place] 44 degreesR [place] 28 degreesT [place] 39 degreesNormal sinus rhythmNormal ECGNo previous ECGs availableConfirmed by OKSANA LANDRUM MD, TEMI Mcnulty ([id number]) on 05/05/2021 6:47:15 [facility] 12 [id number] 06:47:19Interface, External Ris In - 05/05/2021 6:47 AM CDTVentricular Rate 91 BPMAtrial Rate 91 BPMP-R Interval 126 msQRS Duration 78 msQ-T Interval 352 msQTC Calculation(Bazett) 432 msP [place] 44 degreesR [place] 28 degreesT [place] 39 degreesNormal sinus rhythmNormal ECGNo previous ECGs availableConfirmed by MD BELLAMY JOSEPH P ([id number]) on 05/05/2021 6:47:15 [facility], [id number] 06:17:00 Test Item Value Reference Range Interpretation Comments ABO Grouping (test code = 2588) O Rh Factor (test code = 2589) POS [facility], [id number] 06:17:00 Test Item Value Reference Range Interpretation Comments ABO Grouping (test code = 2588) O Rh Factor (test code = 2589) POS [facility], [id number] 06:17:00 Test Item Value Reference Range Interpretation Comments ABO Grouping (test code = 2588) O Rh Factor (test code = 2589) [facility], [id number] 06:17:00 Test Item Value Reference Range Interpretation Comments ABO Grouping (test code = 2588) O Rh Factor (test code = 2589) [facility] ([facility] and [facility] only) 2021-05-05 05:01:00 Test Item Value Reference Range Interpretation Comments ABO/RH AUTOMATED (BEAKER) (test O POSITIVE code = 2260) Ab Scrn (test code = 890-4) [facility]GATIVE [facility] ([facility] and [facility] only) 2021-05-05 05:01:00 Test Item Value Reference Range Interpretation Comments ABO/RH AUTOMATED (BEAKER) (test O POSITIVE code = 2260) Ab Scrn (test code = 890-4) [facility]GATIVE [facility] ([facility] and [facility]) 2021-05-05 05:01:00 Test Item Value Reference Range Interpretation Comments ABO/RH AUTOMATED (BEAKER) (test O POSITIVE code = 2260) Ab Scrn (test code = 890-4) [facility]GATIVE [facility] ([facility] and [facility]) 2021-05-05 05:01:00 Test Item Value Reference Range Interpretation Comments ABO/RH AUTOMATED (BEAKER) (test O POSITIVE code = 2260) Ab Scrn (test code = 890-4) [facility]GATIVE [facility]/[id number] 04:35:00 Test Item Value Reference Interpretation Comments [...] valves. Lab Interpretation Normal (test code = 45950-8) [facility][id number] 04:35:00 Test Item Value Reference Interpretation Comments [...] valves. Lab Interpretation Normal (test code = 90455-6) [facility][id number] 04:35:00 Test Item Value Reference Interpretation Comments [...] valves. Lab Interpretation Normal (test code = 62602-8) [facility][id number] 04:35:00 Test Item Value Reference Interpretation Comments Range Protime (test code = 13.7 See_Comment [Autom ated 2722-2) message] The system which generated this result transmitted reference range : 11.9 - 14.2 seconds. The reference range was not used to interpret this result as normal/abnormal . INR (test code = 1.07 See_Comment [Automated 3041Tiempo6) message] The system which generated this result [...] valves. Lab Interpretation Normal (test code = 36817-3) [facility] Center[facility] TIME/[id number] 04:35:00 Test Item Value Reference Range Interpretation Comments PROTIME (BEAKER) 13.7 seconds 11.9-14.2 (test code = 759) INR (BEAKER) (test 1.07 See_Comment [Automat ed message] code = 370) The system ic h generated this result transmitted ref erence range: <=5.90. The reference range was not used to int erpret this result as normal/abnormal . RECOMMENDED COUMADIN/WARFARIN INR THERAPY RANGESSTANDARD DOSE: 2.0 - 3.0 Includes: PROPHYLAXIS forvenous thrombosis, systemic embolization; TREATMENT for venous thrombosis and/or pulmonary embolus.HIGH RISK: Target INR is 2.5-3.5 for patients with mechanical heart valves.High Sensitivity Troponin [id number] 01:56:00 Test Item Value Reference Range Interpretation Comments Troponin I HS <4 See_Comment [Automated (test code = message] The 31713-7) system which generated this result transmitted reference range : <=17 pg/ml. The reference range was not used to interpret this result as normal/abnormal . TORRES (test code = Immigration Officer ID - TORRES) DBThe [employer] END DEVELOPER STAT High Sensitivity Troponin-I results should be used in conjunction with other diagnostic information such as ECG, clinical observations and information, and patient symptoms to aid in the diagnosis of CO. Lab Interpretation Normal (test code = 68930-2) [facility] Troponin [id number] 01:56:00 Test Item Value Reference Range Interpretation Comments Troponin I HS <4 See_Comment [Automated (test code = message] The 10600-8) system which generated this result transmitted reference range : <=17 pg/ml. The reference range was not used to interpret this result as normal/abnormal . TORRES (test code = Immigration Officer ID - TORRES) DBThe S[employer] FR[employer] END DEVELOPER STAT High Sensitivity Troponin-I results should be used in conjunction with other diagnostic information such as ECG, clinical observations and information, and patient symptoms to aid in the diagnosis of CO. Lab Interpretation Normal (test code = 00592-8) [facility] Troponin [id number] 01:56:00 Test Item Value Reference Range Interpretation Comments Troponin I HS <4 See_Comment [Automated (test code = message] The 68828-3) system which generated this result transmitted reference range : <=17 pg/ml. The reference range was not used to interpret this result as normal/abnormal . TORRES (test code = Immigration Officer ID - TORRES) DBThe SENIOR FRONT END DEVELOPER STAT High Sensitivity Troponin-I results should be used in conjunction with other diagnostic information such as ECG, clinical observations and information, and patient symptoms to aid in the diagnosis of CO. Lab Interpretation Normal (test code = 15379-0) [facility]roponin [id number] 01:56:00 Test Item Value Reference Range Interpretation Comments Troponin I HS <4 See_Comment [Automated (test code = message] The 55747-4) system which generated this result transmitted reference range : <=17 pg/ml. The reference range was not used to interpret this result as normal/abnormal . TORRES (test code = Immigration Officer ID - TORRES) DBThe SENIOR FRONT END DEVELOPER STAT High Sensitivity Troponin-I results should be used in conjunction with other diagnostic information such as ECG, clinical observations and information, and patient symptoms to aid in the diagnosis of CO. Lab Interpretation Normal (test code = 74467-3) [facility] TROPONIN [id number] 01:56:00 Test Item Value Reference Range Interpretation Comments HIGH SENSITIVITY < pg/ml See_Comment [Automated message] TROPONIN I (test code = The system which 4239413) generated this result transmitted ref erence range: <=17. Th e reference range was not used to interpr et this result as normal/abnormal . Immigration Officer ID - DBThe SENIOR FRONT END DEVELOPER STAT High Sensitivity Troponin-I results should be used in conjunctionwith other diagnostic information such as ECG, clinical observations and information, and patient symptoms to aid in the diagnosis of CO.Ketones, [id number] 01:40:00 Test Item Value Reference Range Interpretation Comments Ketones, Blood (test code = 1103) 0.4 mmol/L <0.4 H Lab Interpretation (test code = Abnormal 46138-2) [facility] Center[facility], [id number] 01:40:00 Test Item Value Reference Range Interpretation Comments Ketones, Blood (test code = 1103) 0.4 mmol/L <0.4 H Lab Interpretation (test code = Abnormal 18327-6) [facility], [id number] 01:40:00 Test Item Value Reference Range Interpretation Comments Ketones, Blood (test code = 1103) 0.4 mmol/L <0.4 H Lab Interpretation (test code = Abnormal 05569-3) [facility] Center[facility], [id number] 01:40:00 Test Item Value Reference Range Interpretation Comments Ketones, Blood (test code = 1103) 0.4 mmol/L <0.4 H Lab Interpretation (test code = Abnormal 51549-5) [facility], [id number] 01:40:00 Test Item Value Reference Range Interpretation Comments KETONES, BLOOD (BEAKER) (test code 0.4 mmol/L <0.4 H = 1103) SARS-CoV2/RT-PCR (Asymptomatic ONLY)2021-05-05 01:30:00 Test Item Value Reference Interpretation Comments Range SARS-COV2/RT-PCR Negative Negative The SARS-Co V-2 (test code = target nucleic 07858-4) acids are not detected in thi s [...] revoked sooner. Fact Sheet for Healthcare Providers: https://www.[employer]/Documents/Xp ert%20Xpress%20SAR S%20CoV-2/Fact%20S heets/3023802%20S ARS-COV-2%20HEALTH CARE%20PROVIDERS%2 0FACT%20SHEET.pdf Fact Sheet for Healthcare Patients: https://www.[employer]/Documents/Xp ert%20Xpress%20SAR S%20CoV-2/Fact%20S heets/302-3801%20S ARS-COV-2%20PATIEN T%20FACT%20SHEET.p df Lab Interpretation Normal (test code = 45348-4) [facility]2021-05-05 01:30:00 Test Item Value Reference Interpretation Comments Range SARS-COV2/RT-PCR Negative Negative The SARS-Co V-2 (test code = target nucleic 77996-6) acids are not detected in thi s [...] revoked sooner. Fact Sheet for Healthcare Providers: https://www.[employer]/Documents/Xp ert%20Xpress%20SAR S%20CoV-2/Fact%20S heets/302-3802%20S ARS-COV-2%20HEALTH CARE%20PROVIDERS%2 0FACT%20SHEET.pdf Fact Sheet for Healthcare Patients: https://www.[employer]/Documents/Xp ert%20Xpress%20SAR S%20CoV-2/Fact%20S heets/302-3801%20S ARS-COV-2%20PATIEN T%20FACT%20SHEET.p df Lab Interpretation Normal (test code = 13632-7) [facility] (Asymptomatic ONLY)2021-05-05 01:30:00 Test Item Value Reference Interpretation Comments Range SARS-COV2/RT-PCR Negative Negative The SARS-Co V-2 (test code = target nucleic 78215-2) acids are not detected in thi s [...] revoked sooner. Fact Sheet for Healthcare Providers: https://www.[employer]/Documents/Xp ert%20Xpress%20SAR S%20CoV-2/Fact%20S heets/3023802%20S ARS-COV-2%20HEALTH CARE%20PROVIDERS%2 0FACT%20SHEET.pdf Fact Sheet for Healthcare Patients: https://www.[employer]/Documents/Xp ert%20Xpress%20SAR S%20CoV-2/Fact%20S heets/302-3801%20S ARS-COV-2%20PATIEN T%20FACT%20SHEET.p df Lab Interpretation Normal (test code = 34823-0) [facility] (Asymptomatic ONLY)2021-05-05 01:30:00 Test Item Value Reference Interpretation Comments Range SARS-COV2/RT-PCR Negative Negative The SARS-Co V-2 (test code = target nucleic 40135-6) acids are not detected in thi s [...] revoked sooner. Fact Sheet for Healthcare Providers: https://www.[employer]/Documents/Xp ert%20Xpress%20SAR S%20CoV-2/Fact%20S heets/302-3802%20S ARS-COV-2%20HEALTH CARE%20PROVIDERS%2 0FACT%20SHEET.pdf Fact Sheet for Healthcare Patients: https://www.[employer]/Documents/Xp ert%20Xpress%20SAR S%20CoV-2/Fact%20S heets/302-3801%20S ARS-COV-2%20PATIEN T%20FACT%20SHEET.p df Lab Interpretation Normal (test code = 95611-3) [facility])2021-05-05 01:30:00 Test Item Value Reference Range Interpretation Comments SARS-COV2/RT-PCR Negative Negative The SARS-Co V-2 target (test code = nucleic acids a re not 8192033) detected in thi s specimen. Negative result [...] revoked sooner. Fact Sheet for Healthcare Providers: https://www.[employer]/Documents/Xpert%20Xpress%20SARS%20CoV-2/Fact%20Sheets/3023802%20SARS-COV -2%20HEALTHCARE%20PROVIDERS%20FACT%20SHEET.pdf Fact Sheet for Healthcare Patients: https://www.[employer]/Documents/Xpert %20Xpress%20SARS%20CoV-2/Fact%20Sheets/3023801%62VDDQ-NKW-9%20PATIENT%20FACT%20 SHEET.pdfBlood gas, [id number] 01:22:00 Test Item Value Reference Range Interpretation Comments pH, Niranjan (test code = 7.35 7.32-7.42 2746-6) pCO2, Niranjan (test code = 39 See_Comment L [Aut omated 385) message] The sy stem which generated this result transmitted reference range : 41 - 51 mm Hg. The reference range was not used to interpret this result as normal/abnormal . pO2, Niranjan (test code = 59 See_Comment H [Auto mated 8815-2) message] The sy stem which generated this result transmitted reference range : 25 - 40 mm Hg. The reference range was not used to interpret this result as normal/abnormal . O2 Sat, Niranjan (test code 89.4 % 40-70 H = 2711-0) HCO3, Niranjan (test code = 21 mmol/L 21-29 01423-5) Base Excess, Niranjan (test -4.5 mmol/L -2-3 L code = 1927-3) Patient Temperature 37.0 (test code = 8310-5) FIO2 (test code = 1819) 21 Lab Interpretation Abnormal (test code = 06592-6) [facility] gas, [id number] 01:22:00 Test Item Value Reference Range Interpretation [...] Niranjan (test code = 21 mmol/L 21-29 47507-3) Base Excess, Niranjan (test -4.5 mmol/L -2-3 L code = 1927-3) Patient Temperature 37.0 (test code = 8310-5) FIO2 (test code = 1819) 21 Lab Interpretation Abnormal (test code = 01254-9) [facility] gas, [id number] 01:22:00 Test Item Value Reference Range Interpretation [...] Niranjan (test code = 21 mmol/L 21-29 84422-5) Base Excess, Niranjan (test -4.5 mmol/L -2-3 L code = 1927-3) Patient Temperature 37.0 (test code = 8310-5) FIO2 (test code = 1819) 21 Lab Interpretation Abnormal (test code = 33857-9) [facility], [id number] 01:22:00 Test Item Value Reference Range Interpretation [...] Niranjan (test code = 21 mmol/L 21-29 64293-8) Base Excess, Niranjan (test -4.5 mmol/L -2-3 L code = 1927-3) Patient Temperature 37.0 (test code = 8310-5) FIO2 (test code = 1819) 21 Lab Interpretation Abnormal (test code = 50013-2) [facility] GAS, [id number] 01:22:00 Test Item Value Reference Range Interpretation [...] (BEAKER) (test code = 1819) 21.0 ECG/EKG [id number] 23:15:Cherie Guerra MD 05/05/2021 2:11 AMECG/EKG Interpretation Date/Time: 05/04/2021 11:26 PMPerformed by: Cherie Faustin MDAuthorized by: Cherie Faustin MD The ECG was interpreted by ED physician. The ECG is interpreted as sinus rhythm. Rate is normal rate. Heart rate is 91 BPM.ST segments normal. T-wave inversion in lead(s) V1 and V2. Clinical Impression: normal ECGCH[facility] CenterECG/EKG [id number] 23:15:17Cherie Faustin MD 05/05/2021 2:11 AMECG/EKG Interpretation Date/Time: 05/04/2021 11:26 PMPerformed by: Cherie Faustin MDAuthorized by: Cherie Faustin MD The ECG was interpreted by ED physician. The ECG is interpreted as sinus rhythm. Rate is normal rate. Heart rate is 91 BPM.ST segments normal. T-wave inversion in lead(s) V1 and V2. Clinical Impression: normal ECGCH[facility] CenterECG/EKG Ustxrtnfbvppze2320-47-76 23:15:17Cherie Faustin MD 05/05/2021 2:11 AMECG/EKG Interpretation Date/Time: 05/04/2021 11:26 PMPerformed by: Cherie Faustin MDAuthorized by: Cherie Faustin MD The ECG was interpreted by ED physician. The ECG is interpreted as sinus rhythm. Rate is normal rate. Heart rate is 91 BPM.ST segments normal. T-wave inversion in lead(s) V1 and V2. Clinical Impression: normal ECGCH[facility] CenterECG/EKG Kquitxafgjsmvo2851-75-91 23:15:17Cherie Faustin MD 05/05/2021 2:11 AMECG/EKG Interpretation Date/Time: 05/04/2021 11:26 PMPerformed by: Cherie Faustin MDAuthorized by: Cherie Faustin MD The ECG was interpreted by ED physician. The ECG is interpreted as sinus rhythm. Rate is normal rate. Heart rate is 91 BPM.ST segments normal. T-wave inversion in lead(s) V1 and V2. Clinical Impression: normal ECGProv[facility] CenterHEPATIC FUNCTION [id number] 22:01:00 Test Item Value Reference Range Interpretation [...] Specimen moderately (test code = 347) hemolyzed Immigration Officer ID - MOZrpjvdz4554-36-62 21:53:00 Test Item Value Reference Range Interpretation Comments Amylase (test code = 143 U/L 25-125 H Specime n 1798-8) markedly hemolyzed TORRES (test code = TORRES) Immigration Officer ID - DB Lab Interpretation Abnormal (test code = 64256-0) [facility] CenterLipase2021-08-23 21:53:00 Test Item Value Reference Range Interpretation Comments Lipase (test code = 3040-3) 97 U/L 8-78 H TORRES (test code = TORRES) Immigration Officer ID - DB Lab Interpretation (test Abnormal code = 68665-2) [facility] CenterAmylase2021-08-23 21:53:00 Test Item Value Reference Range Interpretation Comments Amylase (test code = 143 U/L 25-125 H Specime n 1798-8) markedly hemolyzed TORRES (test code = TORRES) Immigration Officer ID - DB Lab Interpretation Abnormal (test code = 71625-4) [facility] CenterLipase2021-08-23 21:53:00 Test Item Value Reference Range Interpretation Comments Lipase (test code = 3040-3) 97 U/L 8-78 H TORRES (test code = TORRES) Immigration Officer ID - DB Lab Interpretation (test Abnormal code = 41702-4) [facility] CenterAmylase2021-08-23 21:53:00 Test Item Value Reference Range Interpretation Comments Amylase (test code = 143 U/L 25-125 H Specime n 1798-8) markedly hemolyzed TORRES (test code = TORRES) Immigration Officer ID - DB Lab Interpretation Abnormal (test code = 63312-6) [facility] Center[facility]2021-08-23 21:53:00 Test Item Value Reference Range Interpretation Comments Lipase (test code = 3040-3) 97 U/L 8-78 H TORRES (test code = TORRES) Immigration Officer ID - DB Lab Interpretation (test Abnormal code = 42418-4) [facility] CenterAmylase2021-08-23 21:53:00 Test Item Value Reference Range Interpretation Comments Amylase (test code = 143 U/L 25-125 H Specime n 1798-8) markedly hemolyzed TORRES (test code = TORRES) Immigration Officer ID - DB Lab Interpretation Abnormal (test code = 66902-9) [facility] Center[facility]2021-08-23 21:53:00 Test Item Value Reference Range Interpretation Comments Lipase (test code = 3040-3) 97 U/L 8-78 H TORRES (test code = TORRES) Immigration Officer ID - DB Lab Interpretation (test Abnormal code = 73068-7) [facility] CenterBASIC METABOLIC [id number] 21:53:00 Test Item Value Reference Range Interpretation [...] S NOT APPLICABLE FOR DIALYSIS PATIEN TS. Immigration Officer ID - [id number] 21:53:00 Test Item Value Reference Range Interpretation Comments AMYLASE (BEAKER) (test 143 U/L 25-125 H Speci men markedly code = 349) hemolyzed Immigration Officer ID - [id number] 21:53:00 Test Item Value Reference Range Interpretation Comments LIPASE (BEAKER) (test code = 749) 97 U/L 8-78 H Immigration Officer ID - DBCBC W/PLT COUNT & AUTO [id number] 19:51:00 Test Item Value Reference Range Interpretation [...] PERCENT (BEAKER) (test code = 2801) POC-Glucose [id number] 08:41:00 Test Item Value Reference Range Interpretation Comments POC-Glucose Meter (test 104 mg/dL 70-110 : TE STED AT [facility] code = 1538) [address] [place] [address], [facility] 30: Immigration Officer/Techni aldo ID = [id number] for HUSSEIN LEMON Lab Interpretation (test Normal code = 73768-5) [facility] CenterPOC-Glucose [id number] 08:41:00 Test Item Value Reference Range Interpretation Comments POC-Glucose Meter (test 104 mg/dL 70-110 : TE STED AT [facility] code = 1538) [address] [place] [address], [facility] 30: Immigration Officer/Techni aldo ID = [id number] for HUSSEIN LEMON Lab Interpretation (test Normal code = 03499-9) [facility]-Glucose [id number] 08:41:00 Test Item Value Reference Range Interpretation Comments POC-Glucose Meter (test 104 mg/dL 70-110 : TE STED AT [facility] code = 1538) [address] [facility], [address] 30: Immigration Officer/Techni aldo ID = [id number] for HUSSEIN LEMON Lab Interpretation (test Normal code = 78342-8) [facility]-Glucose [id number] 08:41:00 Test Item Value Reference Range Interpretation Comments POC-Glucose Meter (test 104 mg/dL 70-110 : TE STED AT [facility] code = 1538) [address] [facility], [address] 30: Immigration Officer/Techni aldo ID = [id number] for HUSSEIN LEMON Lab Interpretation (test Normal code = 01714-0) [facility]-GLUCOSE [id number] 08:41:00 Test Item Value Reference Range Interpretation Comments POC-GLUCOSE METER 104 mg/dL 70-110 : TESTED A T [facility] 6720 (BEAKER) (test code = [place] [facility] [place], 1538) [address]: Immigration Officer/Techni aldo ID = [id number] for HUSSEIN DAVID Comprehensive metabolic [id number] 06:49:00 Test Item Value Reference Range Interpretation Comments Protein, Total (test 6.8 See_Comment [Autom ated code = 2885-2) message] The system which generated this result transmit lane reference range : 6.0 - 8.3 gm/dL . The reference range was not u sed to interpret th is result as normal/abnormal . Albumin (test code = 3.5 g/dL 3.5-5 46139-5) Alkaline Phosphatase 44 U/L 40-150 (test code = 6768-6) Total Bilirubin (test 0.3 mg/dL 0.2-1.2 code = 1975-2) Sodium (test code = 139 meq/L 474-012 4707-2) Potassium (test code 3.8 meq/L 3.5-5.1 = 2823-3) Chloride (test code = 104 meq/L 98-107 2074-0) CO2 (test code = 27 meq/L 22-29 2027-9) BUN (test code = 12 mg/dL 04-01 3094-0) Creatinine (test code 1.05 mg/dL 0.57-1.25 = 2160-0) Glucose (test code = 79 mg/dL 70-105 2345-7) Calcium (test code = 8.4 mg/dL 8.4-10.2 73207-8) AST (test code = 49 U/L 5-34 H 1920-8) ALT (test code = 41 U/L 6-55 1742-6) EGFR (test code = 52 mL/min/1.[address] [place] [address]-8) NOT ACCURATE CREATININE CLEARANCE IN PREDICTING GLOMERULAR FILTRATION RATE . ESTIMATED GFR I S NOT APPLICABLE FOR DIALYSIS PATIEN TORRES (test code = TORRES) Immigration Officer ID - HUMBLE Porter Lab Interpretation Abnormal (test code = 02082-2) [facility] CenterComprehensive metabolic [id number] 06:49:00 Test Item Value Reference Range Interpretation Comments Protein, Total (test 6.8 See_Comment [Autom ated code = 2885-2) message] The system which generated this result transmit lane reference range : 6.0 - 8.3 gm/dL . The reference range was not u sed to interpret th is result as normal/abnormal . Albumin (test code = 3.5 g/dL 3.5-5 26062-4) Alkaline Phosphatase 44 U/L 40-150 (test code = 6768-6) Total Bilirubin (test 0.3 mg/dL 0.2-1.2 code = 1974-2) Sodium (test code = 139 meq/L 158-719 2117-2) Potassium (test code 3.8 meq/L 3.5-5.1 = 2823-3) Chloride (test code = 104 meq/L 98-107 5-0) CO2 (test code = 27 meq/L 2028-05) BUN (test code = 12 mg/dL 04-01 3094-0) Creatinine (test code 1.05 mg/dL 0.57-1.25 = 2160-0) Glucose (test code = 79 mg/dL 70-105 2345-7) Calcium (test code = 8.4 mg/dL 8.4-10.2 59557-9) AST (test code = 49 U/L 5-34 H 1920-8) ALT (test code = 41 U/L 6-55 1742-6) EGFR (test code = 52 mL/min/1.[address] [place] [address]-2) NOT ACCURATE CREATININE CLEARANCE IN PREDICTING GLOMERULAR FILTRATION RATE . ESTIMATED GFR I S NOT APPLICABLE FOR DIALYSIS PATIEN TSKenrick TORRES (test code = TORRES) Immigration Officer ID - HUMBLE M Lab Interpretation Abnormal (test code = 06824-5) [facility] CenterComprehensive metabolic [id number] 06:49:00 Test Item Value Reference Range Interpretation Comments Protein, Total (test 6.8 See_Comment [Autom ated code = 2885-2) message] The system which generated this result transmit lane reference range : 6.0 - 8.3 gm/dL . The reference range was not u sed to interpret th is result as normal/abnormal . Albumin (test code = 3.5 g/dL 3.5-5 21175-8) Alkaline Phosphatase 44 U/L 40-150 (test code = 6768-6) Total Bilirubin (test 0.3 mg/dL 0.2-1.2 code = 1974-2) Sodium (test code = 139 meq/L 244-536 6270-2) Potassium (test code 3.8 meq/L 3.5-5.1 = 2823-3) Chloride (test code = 104 meq/L 98-107 2075-0) CO2 (test code = 27 meq/L 22-29 8-9) BUN (test code = 12 mg/dL 7-21 3094-0) Creatinine (test code 1.05 mg/dL 0.57-1.25 = 2160-0) Glucose (test code = 79 mg/dL 70-105 2345-7) Calcium (test code = 8.4 mg/dL 8.4-10.2 35520-2) AST (test code = 49 U/L 5-34 H 1920-8) ALT (test code = 41 U/L 6-55 1742-6) EGFR (test code = 52 mL/min/1.[address] [place] [address]-2) NOT ACCURATE CREATININE CLEARANCE IN PREDICTING GLOMERULAR FILTRATION RATE . ESTIMATED GFR I S NOT APPLICABLE FOR DIALYSIS PATIEN TS. TORRES (test code = TORRES) Immigration Officer ID - HUMBLE M Lab Interpretation Abnormal (test code = 94222-3) [facility] CenterCom[facility] [id number] 06:49:00 Test Item Value Reference Range Interpretation Comments Protein, Total (test 6.8 See_Comment [Autom ated code = 2885-2) message] The system which generated this result transmit lane reference range : 6.0 - 8.3 gm/dL . The reference range was not u sed to interpret th is result as normal/abnormal . Albumin (test code = 3.5 g/dL 3.5-5 12389-4) Alkaline Phosphatase 44 U/L 40-150 (test code = 6768-6) Total Bilirubin (test 0.3 mg/dL 0.2-1.2 code = 1974-2) Sodium (test code = 139 meq/L 803-836 3514-2) Potassium (test code 3.8 meq/L 3.5-5.1 = 2823-3) Chloride (test code = 104 meq/L 98-107 2075-0) CO2 (test code = 27 meq/L 22-29 2028-9) BUN (test code = 12 mg/dL 7-21 3094-0) Creatinine (test code 1.05 mg/dL 0.57-1.25 = 2160-0) Glucose (test code = 79 mg/dL 70-105 2345-7) Calcium (test code = 8.4 mg/dL 8.4-10.2 28866-3) AST (test code = 49 U/L 5-34 H 1920-8) ALT (test code = 41 U/L 6-55 1742-6) EGFR (test code = 52 mL/min/1.[address] [place] [address]-8) NOT ACCURATE CREATININE CLEARANCE IN PREDICTING GLOMERULAR FILTRATION RATE . ESTIMATED GFR I S NOT APPLICABLE FOR DIALYSIS PATIEN TS. TORRES (test code = TORRES) Immigration Officer ID - HUMBLE M Lab Interpretation Abnormal (test code = 19967-4) [facility] CenterCOMPREHENSIVE METABOLIC [id number] 06:49:00 Test Item Value Reference Range Interpretation [...] S NOT APPLICABLE FOR DIALYSIS PATIEN TS. Immigration Officer ID - HUMBLE MPOCT-GLUCOSE [id number] 16:54:00 Test Item Value Reference Range Interpretation Comments POC-GLUCOSE METER 171 mg/dL 70-110 H : TESTED A T [facility] 6720 (BEAKER) (test code = [place], 1538) [address]: Immigration Officer/Techni aldo ID = [id number] for ALBINO GONZALEZ Hemoglobin [id number] 15:22:00 Test Item Value Reference Range Interpretation Comments Hemoglobin A1C (test code = 4548-4) 6.2 % 4.3-6.1 H Lab Interpretation (test code = Abnormal 58053-9) [facility] CenterHemoglobin [id number] 15:22:00 Test Item Value Reference Range Interpretation Comments Hemoglobin A1C (test code = 4548-4) 6.2 % 4.3-6.1 H Lab Interpretation (test code = Abnormal 33489-5) [facility] CenterHemoglobin [id number] 15:22:00 Test Item Value Reference Range Interpretation Comments Hemoglobin A1C (test code = 4548-4) 6.2 % 4.3-6.1 H Lab Interpretation (test code = Abnormal 79830-3) [facility] CenterHemoglobin [id number] 15:22:00 Test Item Value Reference Range Interpretation Comments Hemoglobin A1C (test code = 4548-4) 6.2 % 4.3-6.1 H Lab Interpretation (test code = Abnormal 10086-0) [facility] CenterHEMOGLOBIN [id number] 15:22:00 Test Item Value Reference Range Interpretation Comments HEMOGLOBIN A1C (BEAKER) (test code = 6.2 % 4.3-6.1 H 368) POCT-GLUCOSE [id number] 12:56:00 Test Item Value Reference Range Interpretation Comments POC-GLUCOSE METER 93 mg/dL 70-110 : Notified RN/MD: TESTED (BEAKER) (test code = AT [facility] [address] [facility] 1538) [facility], [facility] 30: Immigration Officer/Techni aldo ID = [id number] for [facility], [id number] 12:02:00Reason for exam:->ERCP tomorrow [facility] : 1950 Sex: FFluoroscopic unit utilized for a procedure performed in the OR. No interpretation was requested. Refer to the operative report for findings. Refer to PACS for patient radiation dose information.[facility] Endoscopic Retrograde Rzrfiymcrpjbjpiclklzyhxy2360-41-25 12:02:00Interface, External Ris In - 03/10/2021 12:18 PM CDTFluoroscopic unit utilized for a procedure performed in the OR. No interpretation was requested. Refer to the operative report for findings. Referto PACS for patient radiation dose information.[facility] Endoscopic Retrograde Qbmwjsbrakjrevmxxkyxtvhb4807-80-82 12:02:00Interface, External Ris In - 03/10/2021 12:18 PM CDTFluoroscopic unit utilized for a procedure performed in the OR. No interpretation was requested. Refer to the operative report for findings. Referto PACS for patient radiation dose information.[facility] Endoscopic Retrograde Ibdzzopwwmkxqtxtnlnqxgxr1517-01-45 12:02:00Interface, External Ris In - 03/10/2021 12:18 PM CDTFluoroscopic unit utilized for a procedure performed in the OR. No interpretation was requested. Refer to the operative report for findings. Referto PACS for patient radiation dose information.[facility] Endoscopic Retrograde Alrvbsxdztxtajxgobcbrodg4333-05-25 12:02:00Interface, External Ris In 03/10/2021 12:18 PM CDTFluoroscopic unit utilized for a procedure performed in the OR. No interpretation was requested. Refer to the operative report for findings. Referto PACS for patient radiation dose information.[facility] CenterPOCT-GLUCOSE [id number] 09:27:00 Test Item Value Reference Range Interpretation Comments POC-GLUCOSE METER 74 mg/dL 70-110 : TESTED A T [facility] 6720 ([facility]) (test code = FORTUNATO Kaba [facility] [place], 1538) [address]: Immigration Officer/Techni aldo ID = [id number] for ALBINO ROSS COMPREHENSIVE METABOLIC [id number] 05:49:00 Test Item Value Reference Range Interpretation Comments TOTAL PROTEIN 6.8 gm/dL 6.0-8.3 (AKER) (test code = 770) ALBUMIN (AKER) 3.5 g/dL 3.5-5.0 (test code = 1145) [...] S NOT APPLICABLE FOR DIALYSIS PATIEN TS. Immigration Officer ID - [facility] (Hemogram only)2021-03-10 05:10:00 Test Item Value Reference Range Interpretation Comments WBC (test code = 6690-2) 9.1 See_Comment [A utomated message] The system Yast generated this result transmitted ref erence range: 3.5 - 10 .5 K/L. The refe rence range was not u sed to interpret this result as normal/abnor mal. RBC (test code = 789-8) 3.57 See_Comment L [Au tomated message] The system Yast generated this result transmitted ref erence range: 3.93 - 5 .22 M/L. The refe rence range was not u sed to interpret this result as normal/abnor mal. MCHC (test code = 786-4) 30.9 See_Comment L [A utomated message] The system Yast generated this result transmitted ref erence range: [...] See_Comment [Aut omated message] 777-3) The system Yast generated this result transmitted ref erence range: 150 - 45 0 K/CU MM. The referen ce range was not u sed to interpret this result as normal/abnor mal. MPV (test code = 9.3 fL 9.4-12.3 L 14347-2) nRBC (test code = 413) 0 See_Comment [Aut omated message] The system Yast generated this result transmitted ref erence range: 0 - 0 /1 00 WBC. The refere nce range was not u sed to interpret this result as normal/abnor mal. Lab Interpretation (test Abnormal code = 88776-5) [facility] (Hemogram only)2021-03-10 05:10:00 Test Item Value Reference Range Interpretation Comments WBC (test code = 6690-2) 9.1 See_Comment [A utomated message] The system Yast generated this result transmitted ref erence range: 3.5 - 10 .5 K/L. The refe rence range was not u sed to interpret this result as normal/abnor mal. RBC (test code = 789-8) 3.57 See_Comment L [Au tomated message] The system Yast generated this result transmitted ref erence range: 3.93 - 5 .22 M/L. The refe rence range was not u sed to interpret this result as normal/abnor mal. MCHC (test code = 786-4) 30.9 See_Comment L [A utomated message] The system Yast generated this result transmitted ref erence range: [...] See_Comment [Aut omated message] 777-3) The system Yast generated this result transmitted ref erence range: 150 - 45 0 K/CU MM. The referen ce range was not u sed to interpret this result as normal/abnor mal. MPV (test code = 9.3 fL 9.4-12.3 L 31293-6) nRBC (test code = 413) 0 See_Comment [Aut omated message] The system Yast generated this result transmitted ref erence range: 0 - 0 /1 00 WBC. The refere nce range was not u sed to interpret this result as normal/abnor mal. Lab Interpretation (test Abnormal code = 05751-4) [facility] (Hemogram only)2021-03-10 05:10:00 Test Item Value Reference Range Interpretation Comments WBC (test code = 6690-2) 9.1 See_Comment [A utomated message] The system Yast generated this result transmitted ref erence range: 3.5 - 10 .5 K/L. The refe rence range was not u sed to interpret this result as normal/abnor mal. RBC (test code = 789-8) 3.57 See_Comment L [Au tomated message] The system Yast generated this result transmitted ref erence range: 3.93 - 5 .22 M/L. The refe rence range was not u sed to interpret this result as normal/abnor mal. MCHC (test code = 786-4) 30.9 See_Comment L [A utomated message] The system Yast generated this result transmitted ref erence range: [...] See_Comment [Aut omated message] 777-3) The system Yast generated this result transmitted ref erence range: 150 - 45 0 K/CU MM. The referen ce range was not u sed to interpret this result as normal/abnor mal. MPV (test code = 9.3 fL 9.4-12.3 L 71759-0) nRBC (test code = 413) 0 See_Comment [Aut omated message] The system Yast generated this result transmitted ref erence range: 0 - 0 /1 00 WBC. The refere nce range was not u sed to interpret this result as normal/abnor mal. Lab Interpretation (test Abnormal code = 84141-0) [facility] (Hemogram only)2021-03-10 05:10:00 Test Item Value Reference Range Interpretation Comments WBC (test code = 6690-2) 9.1 See_Comment [A utomated message] The system Yast generated this result transmitted ref erence range: 3.5 - 10 .5 K/L. The refe rence range was not u sed to interpret this result as normal/abnor mal. RBC (test code = 789-8) 3.57 See_Comment L [Au tomated message] The system Yast generated this result transmitted ref erence range: 3.93 - 5 .22 M/L. The refe rence range was not u sed to interpret this result as normal/abnor mal. MCHC (test code = 786-4) 30.9 See_Comment L [A utomated message] The system Yast generated this result transmitted ref erence range: [...] See_Comment [Aut omated message] 777-3) The system Yast generated this result transmitted ref erence range: 150 - 45 0 K/CU MM. The referen ce range was not u sed to interpret this result as normal/abnor mal. MPV (test code = 9.3 fL 9.4-12.3 L 52144-9) nRBC (test code = 413) 0 See_Comment [Aut omated message] The system Yast generated this result transmitted ref erence range: 0 - 0 /1 00 WBC. The refere nce range was not u sed to interpret this result as normal/abnor mal. Lab Interpretation (test Abnormal code = 89103-8) [facility] (HEMOGRAM ONLY)2021-03-10 05:10:00 Test [...] 0-0 (BEAKER) (test code = 413) POCT-GLUCOSE [id number] 00:05:00 Test Item Value Reference Range Interpretation Comments POC-GLUCOSE METER 83 mg/dL 70-110 : TESTED A T [facility] 6720 (BEAKER) (test code = [place], 1538) 64409: Immigration Officer/Techni aldo ID = [id number] for BRENDA VENCES SARS-COV2/RT-PCR ([facility])2021-03-09 23:58:00 Test Item Value Reference Range Interpretation Comments SARS-COV2/RT-PCR (test Negative Not Detected, Negative, code = 8256288) See external report for linked test SARS-COV-[address] [facility] SHIV (test code = 9779911) Negative result for this test determines that [...] 564(g) of the Act.Fact Sheet for Healthcare Providers:https://www.makemyreturns.com/sites/default/files/product/documents/Fact_Shee a_UH_Wrngisjus_Qolv_PSQW-VjX-2.pdfFact Sheet for Healthcare Patients:https://www.makemyreturns.com/sites/default/files/product/ documents/Utkm_Ngyje_Mthpozob_Yviu_JTMS-JqK-4.pdfPerforming Laboratory:[facility], [place] [id number]-[id number] METER 2021-03-09 17:34:00 Test Item Value Reference Range Interpretation Comments POC-GLUCOSE METER 97 mg/dL 70-110 : TESTED A T [facility] 6720 ([place]) (test code = FOR[place] Kaba [facility] [place], 1538) [address]84: Immigration Officer/Techni aldo ID = [id number] for ALBINO ROSS MR, ABDOMEN, [id number] 17:11:00Unlisted Reason for Exam - Click Yes and Enter Reason Below->NoPatient with hyperdense material seen in distal CBD on CTA performed [facility] : 1950 Sex: [...] MDReport Verified Date/Time: 03/09/2021 17:11:18 Reading Location: [address] Transitional Reading Room MR abdomen without IV contrast [id number] 17:11:00 Interface, External Ris In - 03/09/2021 [...] Aly Verified Date/Time: 03/09/2021 17:11:18 Reading Location: [address] [facility] [id number] 17:11:00 Interface, External Ris In - 03/09/2021 [...] Alyepnikhil Verified Date/Time: 03/09/2021 17:11:18 Reading Location: [facility] C013 Transitional [facility] [id number] 17:11:00 Interface, External Ris In - 03/09/2021 [...] 12/29/2005 but appears chronic Signed: Ashely Aly [facility] Verified Date/Time: 03/09/2021 17:11:18 Reading Location: [facility] C013T [facility]itional [facility] [id number] 17:11:00 Interface, External Ris In - 03/09/2021 [...] Alyeport Verified Date/Time: 03/09/2021 17:11:18 Reading Location: [address] Transitional Reading Room [facility] [id number] 12:41:00 Test Item Value Reference Range Interpretation Comments POC-GLUCOSE METER 92 mg/dL 70-110 : TESTED A T [facility] 6720 (BEAKER) (test code = JALENCHANA Kaba [facility] [place], 1538) 02848: Immigration Officer/Techni aldo ID = [id number] for PARESH NO ALBINO Urinalysis w/Microscopic + Reflex to [id number] 11:21:00 Test Item Value Reference Range Interpretation Comments Color, UA (test code Light Yellow = 5778-6) Clarity, UA (test Clear code = 5767-9) Specific [place], UA 1.033 1.001-1.035 (test code = 5811-5) pH, UA (test code = 5.5 5.0-8.0 5803-2) Protein, UA (test Negative Negative code = 38472-7) Glucose, UA (test Negative Negative code = 365) Ketones, UA (test Negative Negative code = 2514-8) Bilirubin, UA (test Negative Negative code = 91055-0) Blood, UA (test code Trace Negative A = 69557-3) Nitrite, UA (test Negative Negative code = 5802-4) Leukocytes, UA (test Negative Negative code = 5799-2) Urobilinogen, UA 0.2 mg/dL 0.2-1 (test code = 70283-4) RBC, UA (test code = 2 See_Comment [Autom ated 65355-8) message] The system which generated this result [...] Bacteria, UA (test None Seen code = 26073-8) Mucus (test code = Rare 8247-9) Squam Epithel, UA 1 See_Comment [Automate d (test code = 79873-7) messag e] The system which generated this result transmit lane reference range : /HPF. The reference range was not used to interpret this result as normal/abnormal . Crystals, Urine (test None Seen code = 73833-3) Specimen Source (test code = 2795) TORRES (test code = TORRES) Immigration Officer ID - [auto]Immigration Officer ID - tech Lab Interpretation Abnormal (test code = 94426-4) [facility] to Culture 2021-03-09 11:21:00 Test Item Value Reference Range Interpretation Comments Color, UA (test code Light Yellow = 5778-6) Clarity, UA (test Clear code = 5767-9) Specific [place], UA 1.033 1.001-1.035 (test code = 5811-5) pH, UA (test code = 5.5 5.0-8.0 5803-2) Protein, UA (test Negative Negative code = 63086-8) Glucose, UA (test Negative Negative code = 365) Ketones, UA (test Negative Negative code = 2514-8) Bilirubin, UA (test Negative Negative code = 26594-4) Blood, UA (test code Trace Negative A = 53711-1) Nitrite, UA (test Negative Negative code = 5802-4) Leukocytes, UA (test Negative Negative code = 5799-2) Urobilinogen, UA 0.2 mg/dL 0.2-1 (test code = 11189-4) RBC, UA (test code = 2 See_Comment [Autom ated 64968-7) message] The system which generated this result [...] Bacteria, UA (test None Seen code = 93308-1) Mucus (test code = Rare 8247-9) Squam Epithel, UA 1 See_Comment [Automate d (test code = 82687-1) messag e] The system which generated this result transmit lane reference range : /HPF. The reference range was not used to interpret this result as normal/abnormal . Crystals, Urine (test None Seen code = 74807-8) Specimen Source (test code = 2795) TORRES (test code = TORRES) Immigration Officer ID - [auto]Immigration Officer ID - tech Lab Interpretation Abnormal (test code = 40086-8) [facility] + Reflex to Culture 2021-03-09 11:21:00 Test Item Value Reference Range Interpretation Comments Color, UA (test code Light Yellow = 5778-6) Clarity, UA (test Clear code = 5767-9) Specific [place], UA 1.033 1.001-1.035 (test code = 5811-5) pH, UA (test code = 5.5 5.0-8.0 5803-2) Protein, UA (test Negative Negative code = 53955-4) Glucose, UA (test Negative Negative code = 365) Ketones, UA (test Negative Negative code = 2514-8) Bilirubin, UA (test Negative Negative code = 66950-6) Blood, UA (test code Trace Negative A = 86720-5) Nitrite, UA (test Negative Negative code = 5802-4) Leukocytes, UA (test Negative Negative code = 5799-2) Urobilinogen, UA 0.2 mg/dL 0.2-1 (test code = 50574-1) RBC, UA (test code = 2 See_Comment [Autom ated 70873-4) message] The system which generated this result [...] Bacteria, UA (test None Seen code = 38598-4) Mucus (test code = Rare 8247-9) Squam Epithel, UA 1 See_Comment [Automate d (test code = 40886-3) messag e] The system which generated this result transmit lane reference range : /HPF. The reference range was not used to interpret this result as normal/abnormal . Crystals, Urine (test None Seen code = 08947-8) Specimen Source (test code = 2795) TORRES (test code = TORRES) Immigration Officer ID - [auto]Immigration Officer ID - tech Lab Interpretation Abnormal (test code = 05699-3) [facility]/Microscopic + Reflex to Culture 2021-03-09 11:21:00 Test Item Value Reference Range Interpretation Comments Color, UA (test code Light Yellow = 5778-6) Clarity, UA (test Clear code = 5767-9) Specific [place], UA 1.033 1.001-1.035 (test code = 5811-5) pH, UA (test code = 5.5 5.0-8.0 5803-2) Protein, UA (test Negative Negative code = 81549-5) Glucose, UA (test Negative Negative code = 365) Ketones, UA (test Negative Negative code = 2514-8) Bilirubin, UA (test Negative Negative code = 66006-6) Blood, UA (test code Trace Negative A = 72237-8) Nitrite, UA (test Negative Negative code = 5802-4) Leukocytes, UA (test Negative Negative code = 5799-2) Urobilinogen, UA 0.2 mg/dL 0.2-1 (test code = 69532-9) RBC, UA (test code = 2 See_Comment [Autom ated 01056-9) message] The system which generated this result [...] Bacteria, UA (test None Seen code = 04375-2) Mucus (test code = Rare 8247-9) Squam Epithel, UA 1 See_Comment [Automate d (test code = 94861-3) messag e] The system which generated this result transmit lane reference range : /HPF. The reference range was not used to interpret this result as normal/abnormal . Crystals, Urine (test None Seen code = 79812-7) Specimen Source (test code = 2795) TORRES (test code = TORRES) Immigration Officer ID - [auto]Immigration Officer ID - tech Lab Interpretation Abnormal (test code = 10072-6) [facility]LEX URINE [id number] 11:21:00 Test Item Value Reference Range Interpretation [...] = 1521) SOURCE(BEAKER) (test code = 2795) Immigration Officer ID - [auto]Immigration Officer ID - techHEMOGLOBIN [id number] 10:22:00 Test Item Value Reference Range Interpretation Comments HEMOGLOBIN A1C (BEAKER) (test code = 6.1 % 4.3-6.1 368) [id number] 06:48:00 Test Item Value Reference Range Interpretation Comments Magnesium (test code = 2.1 mg/dL 1.6-2.6 87496-7) TORRES (test code = TORRES) Immigration Officer ID - ELVIN W Lab Interpretation (test Normal code = 32311-5) [facility]2021-[facility]-28 06:48:00 Test Item Value Reference Range Interpretation Comments Magnesium (test code = 2.1 mg/dL 1.6-2.6 29705-5) TORRES (test code = TORRES) Immigration Officer ID - ELVIN W Lab Interpretation (test Normal code = 20171-6) [facility]21-[facility]-28 06:48:00 Test Item Value Reference Range Interpretation Comments Magnesium (test code = 2.1 mg/dL 1.6-2.6 71507-2) TORRES (test code = TORRES) Immigration Officer ID - ELVIN W Lab Interpretation (test Normal code = 67049-6) [facility]2021-06-28 06:48:00 Test Item Value Reference Range Interpretation Comments Magnesium (test code = 2.1 mg/dL 1.6-2.6 66174-7) TORRES (test code = TORRES) Immigration Officer ID - ELVIN W Lab Interpretation (test Normal code = 72141-3) [facility] CenterBAS[facility]ABOLIC [id number] 06:48:00 Test Item Value Reference Range Interpretation [...] S NOT APPLICABLE FOR DIALYSIS PATIEN TS. Immigration Officer ID - ELVIN [id number] 06:48:00 Test Item Value Reference Range Interpretation Comments MAGNESIUM (BEAKER) (test code = 2.1 mg/dL 1.6-2.6 627) Immigration Officer ID Carlo OCONNOR WHEPATIC FUNCTION [id number] 06:48:00 Test Item Value Reference Range Interpretation [...] (test code = 30 U/L 6-55 347) Immigration Officer ID Carlo ELVIN WPROTHROMBIN TIME/[id number] 06:32:00 Test Item Value Reference Range Interpretation Comments PROTIME (BEAKER) 12.9 seconds 11.9-14.2 (test code = 759) INR (BEAKER) (test 0.99 See_Comment [Automat ed message] code = 370) The system Yast generated this result transmitted ref erence range: [...] code = 2801) MRI Brain wo contrast [id number] 16:25:00Patient Name: RIYA BLAKELY TRANDOB: 1950. Age: 67 years. Gender: Female.MR: [id number]. Location: [facility]. Provider: Hollie Osorio MD.EXAM: [...] intracranial abnormality. Mild chronicmicroangiopathic ischemic gliosis. SL: [id number]--Czcx by: Finesse Dias MDDictated Date/time: 0 02/08/18 17:31Electronically Signed by: Finesse Dias MD 02/08/1817:40[facility]RE[facility]Un[facility] Brain w/wo contrast [id number] 13:39:00 Test Item Value Reference Range Interpretation Comments Brain w/wo contrast MRI Cancel Reason: Exam (test code = Brain w/wo Replaced contrast MRI) [facility]"
--- NOTE | 2021-10-10 10:40 | RAD REPORT ---
EXAM DESCRIPTION: CT - Pelvis Wo Cont - 10/10/2021 10:23 am CLINICAL HISTORY: Pelvic pain status post fall COMPARISON: 2014 TECHNIQUE: Computed axial tomography of the pelvis was obtained. Coronal and sagittal reconstruction performed All CT scans are performed using dose optimization technique as appropriate and may include automated exposure control or mA/KV adjustment according to patient size. FINDINGS: )Old fracture involves the left iliac bone. No acute fracture. No dislocation No significant hip joint effusion Muscles are normal size and density. IMPRESSION: No fracture seen
--- NOTE | 2021-10-10 11:27 | ER ---
Nurse's Notes [facility] Name: Alberto Botello Age: 71 yrs Sex: Female : 1950 Arrival Date: 10/10/2021 Time: 09:36 Bed 6 Private MD: Diagnosis: Fall on same level from slipping, tripping and stumbling without subsequent striking against object;Low back pain-coccyx and sacrum Presentation: 10/10 09:51 Chief complaint: Patient's son or daughter states: on 10/08/2021, pt was vg1 trying to get into vehicle when lost balance and fell onto buttocks; pt states lower back and Left hip pain. Denies hitting head or LOC. Coronavirus screen: Vaccine status: Patient reports receiving the 2nd dose of the covid vaccine. Client denies travel out of the [place] in the last 14 days. Ebola Screen: Patient negative for fever greater than or equal to 101.5 degrees Fahrenheit, and additional compatible Ebola Virus Disease symptoms. Initial Sepsis Screen: Does the patient meet any 2 criteria? No. Patient's initial sepsis screen is negative. Does the patient have a suspected source of infection? No. Patient's initial sepsis screen is negative. Risk Assessment: Do you want to hurt yourself or someone else? Patient reports no desire to harm self or others. Onset of symptoms was October 08, 2021. 09:51 Method Of Arrival: Wheelchair vg1 09:51 Acuity: ART 4 vg1 Triage Assessment: 09:53 General: Appears uncomfortable, Behavior is calm, cooperative. Pain: Complains of pain vg1 in back and left leg. Historical: - Allergies: 09:53 No Known Allergies; vg1 - Home Meds: 09:53 Carmel 7.5-325 mg Oral tab 1 tab TID [Active]; lisinopril 10 mg Oral tab 1 tab once vg1 daily [Active]; meclizine 25 mg Oral cap as needed [Active]; Protonix 40 mg Oral TbEC 1 tab once daily [Active]; alprazolam 2 mg Oral tab 1 tab nightly [Active]; Amitiza 24 mcg Oral cap 1 cap [Active]; benztropine 0.5 mg Oral tab 1 tab 2 times per day [Active]; citalopram 20 mg tab 1 tab once daily [Active]; Linzess 145 mcg Oral cap 1 cap once daily [Active]; risperadone 0.5 daily [Active]; ursodiol 500 mg Oral tab daily [Active]; Vitamin D Oral 1000 unit daily [Active]; - PMHx: 09:53 Anxiety; Chronic pain; Diabetes - NIDDM; Hepatitis; Hypertension; Osteoporosis; vg1 Pancreatitis; - PSHx: 09:53 Cholecystectomy; vg1 - Immunization history:: Client reports receiving the 2nd dose of the Covid vaccine. - Social history:: Smoking status: Patient denies any tobacco usage or history of. Screenin:30 Abuse screen: Denies threats or abuse. Denies injuries from another. Nutritional jl7 screening: No deficits noted. Tuberculosis screening: No symptoms or risk factors identified. Fall Risk Fall in past 12 months (25 points). Total Huffman Fall Scale indicates No Risk (0-24 pts). Assessment: 10:30 General: Appears in no apparent distress. uncomfortable, Behavior is calm, cooperative, jl7 appropriate for age. Neuro: Level of Consciousness is awake, alert, obeys commands, Oriented to person, place, time, situation. Cardiovascular: Patient's skin is warm and dry. Respiratory: Airway is patent Respiratory effort is even, unlabored, Respiratory pattern is regular, symmetrical. Derm: Skin is pink, warm \T\ dry. Vital Signs: 09:51 BP 97 / 74; Pulse 83; Resp 17; Temp 98.0; Pulse Ox 100% ; Weight 65.77 kg; Height 5 ft. vg1 0 in. (152.40 cm); Pain 9/10; 09:51 Body Mass Index 28.32 (65.77 kg, 152.40 cm) vg1 ED Course: 09:36 Patient arrived in ED. rg4 09:53 Triage completed. vg1 09:53 Arm band placed on. vg1 09:57 Amisha Hinkle FNP-C is [facility]. kb 09:57 Rob Galo MD is Attending Physician. kb 10:05 Jonas Navarro RN is Primary Nurse. jl7 10:[address] In Process Unspecified. EDMS 10:30 Patient has correct armband on for positive identification. jl7 11:32 No provider procedures requiring assistance completed. Patient did not have IV access jl7 during this emergency room visit. Administered Medications: 11:31 Not Given (Patient Refused): traMADol 50 mg PO once; RASS on ADMIN: Combtv4, Very jl7 Agttd3, Agttd2, Rstlss1, AlertClm0, Drwsy-1, Lt Sdtn-2, Mod Sdtn-3, Dp Sdtn-4, UnArsble-5 Outcome: 11:27 Discharge ordered by MD. martinez 11:32 Discharged to home via wheelchair, with family. jl7 11:32 Condition: stable 11:32 Discharge instructions given to patient, Instructed on discharge instructions, follow up and referral plans. Demonstrated understanding of instructions, follow-up care. 11:33 Patient left the ED. jl7 Signatures: Dispatcher [employer] EDMS Amisha Hinkle, WOOD ROOM HAND-C ROWDY-Maria Ines Rey rg4 Jonas Navarro, RN RN jl7 Eleonora Portillo RN RN vg1
--- NOTE | 2021-10-10 11:27 | EDPHYS ---
Physician Documentation [facility] Name: Alberto Botello Age: 71 yrs Sex: Female : 1950 Arrival Date: 10/10/2021 Time: 09:36 Bed 6 Private MD: LEOLA Physician Rob Galo HPI: 10/10 10:31 This 71 yrs old Female presents to ER via Wheelchair with complaints of Fall Injury. kb 10:31 Details of fall: The patient fell from an upright position. Onset: The symptoms/episode kb began/occurred 2 day(s) ago. Associated injuries: The patient sustained right hip and sacrum and coccyx, painful injury. Severity of symptoms: At their worst the symptoms were moderate, in the emergency department the symptoms are unchanged. The patient has not experienced similar symptoms in the past. The patient has not recently seen a physician. Son reports pt was trying to get into SUV and fell backwards landing on buttocks. Pt c/o pain to coccyx and right hip area. Historical: - Allergies: :53 No Known Allergies; vg1 - Home Meds: 09:53 Grelton 7.5-325 mg Oral tab 1 tab TID [Active]; lisinopril 10 mg Oral tab 1 tab once vg1 daily [Active]; meclizine 25 mg Oral cap as needed [Active]; Protonix 40 mg Oral TbEC 1 tab once daily [Active]; alprazolam 2 mg Oral tab 1 tab nightly [Active]; Amitiza 24 mcg Oral cap 1 cap [Active]; benztropine 0.5 mg Oral tab 1 tab 2 times per day [Active]; citalopram 20 mg tab 1 tab once daily [Active]; Linzess 145 mcg Oral cap 1 cap once daily [Active]; risperadone 0.5 daily [Active]; ursodiol 500 mg Oral tab daily [Active]; Vitamin D Oral 1000 unit daily [Active]; - PMHx: 09:53 Anxiety; Chronic pain; Diabetes - NIDDM; Hepatitis; Hypertension; Osteoporosis; vg1 Pancreatitis; - PSHx: 09:53 Cholecystectomy; vg1 - Immunization history:: Client reports receiving the 2nd dose of the Covid vaccine. - Social history:: Smoking status: Patient denies any tobacco usage or history of. ROS: 10:28 Constitutional: Negative for fever, chills, and weight loss. kb 10:28 MS/extremity: Positive for pain, of the right low back and coccyx. 10:28 All other systems are negative. Exam: 10:28 Constitutional: This is a well developed, well nourished patient who is awake, alert, kb and in no acute distress. Head/Face: Normocephalic, atraumatic. ENT: Moist Mucous membranes Cardiovascular: Regular rate and rhythm with a normal S1 and S2. No gallops, murmurs, or rubs. No pulse deficits. Respiratory: Respirations even and unlabored. No increased work of breathing. Talking in full sentences Skin: Warm, dry with normal turgor. Normal color. MS/ Extremity: Pulses equal, no cyanosis. Neurovascular intact. Full, normal range of motion. Neuro: Awake and alert, GCS 15, oriented to person, place, time, and situation. Moves all extremities. Normal gait. Psych: Awake, alert, with orientation to person, place and time. Behavior, mood, and affect are within normal limits. 10:28 Back: pain, that is moderate, of the sacrum and coccyx, ROM is painful, normal spinal alignment noted. 10:28 Musculoskeletal/extremity: Extremities: grossly normal except: noted in the right hip: pain, ROM: intact in all extremities, Circulation is intact in all extremities. Sensation intact. Weight bearing: can bear weight with assistance only, uses cane. Vital Signs: 09:51 BP 97 / 74; Pulse 83; Resp 17; Temp 98.0; Pulse Ox 100% ; Weight 65.77 kg; Height 5 ft. vg1 0 in. (152.40 cm); Pain 9/10; 09:51 Body Mass Index 28.32 (65.77 kg, 152.40 cm) vg1 MDM: 09:57 Patient medically screened. kb 10:31 Data reviewed: vital signs, nurses notes. Data interpreted: Pulse oximetry: on room air kb is 100 %. Interpretation: normal. Counseling: I had a detailed discussion with the patient and/or guardian regarding: the historical points, exam findings, and any diagnostic results supporting the discharge/admit diagnosis, radiology results, the need for outpatient follow up, a family practitioner, to return to the emergency department if symptoms worsen or persist or if there are any questions or concerns that arise at home. 10/10 10:00 Order name: Sacrum And Coccyx XRAY kb 10/10 10:00 Order name: Pelvis Wo Cont CT; Complete Time: 10:41 kb Administered Medications: 11:31 Not Given (Patient Refused): traMADol 50 mg PO once; RASS on ADMIN: Combtv4, Very jl7 Agttd3, Agttd2, Rstlss1, AlertClm0, Drwsy-1, Lt Sdtn-2, Mod Sdtn-3, Dp Sdtn-4, UnArsble-5 Disposition Summary: 10/10/21 11:27 Discharge Ordered Location: Home kb Condition: Stable kb Diagnosis - Fall on same level from slipping, tripping and stumbling without subsequent kb striking against object - Low back pain - coccyx and sacrum kb Followup: kb - With: Emergency Department - When: As needed - Reason: Worsening of condition Followup: kb - With: Private Physician - When: 2 - 3 days - Reason: Recheck today's complaints, Continuance of care, Re-evaluation by your physician Discharge Instructions: - Discharge Summary Sheet kb - Musculoskeletal Pain kb Forms: - Medication Reconciliation Form kb - Thank You Letter kb - Antibiotic Education kb - Prescription Opioid Use kb Addendum: 10/11/2021 13:22 Co-signature as Attending Physician, Rob Galo MD I agree with the assessment and c jennings plan of care. Signatures: Dispatcher [employer] EDMS Amisha Hinkle, CIRCULAR SHEAR OPERATOR-C CIRCULAR SHEAR OPERATOR-Rob Madrigal MD MD cha Garcia, Victoria, RN RN vg1 Jonas Navarro RN jl7 Corrections: (The following items were deleted from the chart) 10/10 10:32 10:00 Sacrum And Coccyx ordered. EDMS EDMS 10: 10:00 Hip Right 2 View+RAD.RAD.BRZ ordered. EDMS EDMS
[2021-10-10 11:38] VITALS: BP 97/74; TEMP 98; O2SAT 100
== END 2021-10-10 11:33 | disposition home or self-care (01) ==
LOC: ER 09:34
DX: M54.50 Low back pain, unspecified (principal); M53.3 Sacrococcygeal disorders, not elsewhere classified; W18.39XA Other fall on same level, initial encounter; E11.9 Type 2 diabetes mellitus without complications; I10 Essential (primary) hypertension
CPT/HCPCS: 72192; 99283

== ENCOUNTER 2021-11-03 18:43 | Emergency (ER) | payer OTHER ==
--- OUTSIDE RECORDS SUMMARY | 2021-11-03 18:49 | XMS REPORT | Continuity of Care Document ---
:1950 Author Organization [facility] t Address [address] [place] [address] Care Team Providers Name Role Phone ROBERTS, [...] Expiration Date Brandy haywood MEDICARE A B [id number] 2021 00:00:00 [place]ID [place] [id number] MEDICARE PART A [id number] \\T\\ B - MEDICARE [facility]-MEDICAID - [id number] MEDICAID MEDICARE PART A [id number] 2003 \\T\\ B 00:00:00 MEDICAID [facility] [id number] 2013 00:00:00 Problems Condition Condition Condition Status Onset Resolution Last Treating Co mments Source Name Details Category Date Date Treatment Clinician Date Common Common Disease Active [facility] bile duct bile duct 8-24 Luke s - calculus calculus 00:00: Medica l 00 Center Abdominal Abdominal Disease Active [facility] pain pain 6-28 [facility] - 00:00: Medical 00 Center Closed Closed Disease Active Univers fracture fracture 7 ity of of first of first 00:00: [place] lumbar lumbar 00 Medical vertebra vertebra Branch with with routine routine healing healing Hypertensi Hypertensi Disease Active C [facility] on on [facility] Diabetes Diabetes Disease Active [facility] t mellitus mellitus [facility] New onset New onset Problem [...] NO KNOWN Allergy Active [facility] ALLERG[facility] NO KNOWN Drug Active Univers ALLERGIE Class [facility] S [place] [facility] [place] Family History Family Member Diagnosis Comments Start Date Stop Date Source Father Family history of Univers ity of [place] lung cancer Physicians Social History Social Habit Start Date Stop Date Quantity Comments Source Exposure to Not sure [facility] SARS-[facility]-2 ([facility] Tobacco use and 2021-05-07 2021-05-[address] [facility] kes - exposure 00:00:00 00:00:00 Medical Center Alcohol intake 2016-03-18 2016-03-18 0 /d [facility] 00:00:00 00:00:00 Medical Branch Sex [birth year] At [birth year] [facility] 00:00:00 00:00:00 Medical Branch Smoking Status Start Date Stop Date Source Never smoker [facility] Medications Ordered Filled Start Stop Current Ordering Indication Dosage Frequency Signature Comments Components Source Medication Medication Date Date Medication? Clinician (SIG) Name Name iopamidol 2020-09 202- No [id number] 100mL 100 mL, Univers (ISOVUE 09-23 Intravenou [...] IV Push, ity of mg 16:30: Q4HPRN, [place] [address] Starting Medical on Tue Branch 07/24/21 at [...] MCG 10:59: mouth Medical capsule 53 daily. [place] alendronate Yes 70mg Take [address] (FOSAMAX) 8-26 by mouth [facility]ukes - 70 MG 10:59: every 7 Medical tablet 53 days Take Center in the morning with a full glass of water, on an empty stomach, and do not take anything else by mouth or lie down for the next 30 min. . HYDROcodone Yes 1{tbl} Q.74680589 Take [address] -acetaminop 8-26 [id number] tablet by Lukes - hen (NORCO 10:59: [...] next 30 min. . HYDROcodone Yes 1{tbl} Q.[id number] Take [address] -acetaminop 8-26 [id number] tablet by Lukes - hen (NORCO 10:59: [...] MCG 10:59: mouth Medical capsule 53 daily. [place] alendronate Yes 70mg Take [address] (FOSAMAX) 8-26 by mouth Lukes - 70 MG 10:59: every 7 Medical tablet 53 days Take Center in the morning with a full glass of water, on an empty stomach, and do not take anything else by mouth or lie down for the next 30 min. . HYDROcodone Yes 1{tbl} Q.23461309 Take [address] -acetaminop 8-26 [id number] tablet by Lukes - hen (NORCO 10:59: 3D mouth 3 Medi josephine 5-325) 53 (three) Center 5-325 mg times per tablet daily. ursodioL Yes 500mg QD Take [address] (ACTIGALL) 8-26 mg by Lukes - 500 MG 10:59: mouth Medical tablet 53 daily. [place] ALPRAZolam Yes 2mg Take 2 mg CH [...] next 30 min. . HYDROcodone Yes 1{tbl} Q.33688601 Take [address] -acetaminop 8-26 [id number] tablet by Lukes - hen (NORCO 09:40: 3D mouth 3 Medi josephine 5-325) 47 (three) Center 5-325 mg times per tablet daily. ursodioL Yes 500mg QD Take [address] (ACTIGALL) 8-26 mg by Lukes - 500 MG 09:40: mouth Medical tablet 47 daily. [place] meclizine Yes [facility] (ANTIVERT) 6-21 [facility]ukes - 25 mg 00:00: Medical tablet 00 [place] meclizine Yes [facility] (ANTIVERT) 6-21 [facility]ukes - 25 mg 00:00: Medical tablet 00 [place] meclizine Yes [facility] (ANTIVERT) 6-21 Lukes - 25 mg 00:00: Medical tablet 00 [place] meclizine Yes [facility] (ANTIVERT) 6-21 [facility]ukes - 25 mg 00:00: Medical tablet 00 [place] Nortriptyli Nortriptyli Yes HOLLIE TAKE 1 Univers ne HCl - 25 ne HCl - 25 5-30 DOMENICO M.DKenrick CAPSULE AT ity of MG Oral MG Oral 00:00: BEDTIME. Arnie as Capsule Capsule Physici ans Hemocyte Hemocyte Yes R.N. Unive rs Plus 106-1 Plus 106-1 5-23 ity of MG Oral MG Oral 00:00: [place] Capsule Capsule 00 Physici ans Lisinopril Lisinopril Yes R.N. Q0.5D TAKE 1 Univers 10 MG Oral 10 MG Oral 5-23 TABLET i ty of Tablet Tablet 00:00: TWICE [place] 00 DAILY. Physici ans MetFORMIN MetFORMIN Yes [...] HOLLIE Medrol Univers ISolone 4 ISolone 4 5- DOMENICO Michelle dose lior ity of MG [...] 10mg Take 10 mg Univers ne (ELAVIL) 07 by mouth ity of 10 mg 08:12: at [place] tablet 18 bedtime. Medical Branch morphine Yes [...] A Medical DAY WITH Branch FOOD morpHINE 2015- Yes TK 1 AND Unive rs I.R. (MSIR) 6-10 1/2 TS PO ity of 30 mg 00:00: BID. [place] tablet Medical Branch morpHINE Yes TK 1 AND Unive rs I.R. (MSIR) 6-10 1/2 TS PO ity of 30 mg 00:00: BID. [place] tablet 00 Medical Branch Lisinopril, Yes Univer s Bulk, 100 % 6-03 ity of Powd 00:00: Medical Branch Lisinopril, Yes Univer s Bulk, [...] Immunizations Ordered Filled Immunization Date Status Comments [facility] e Immunization Name Name SARS-COV-2 COVID-19 2020-11-11 Completed Unive rsity of PFIZER VACCINE 00:00:00 [facility] [place] [facility] SARS-COV-2 COVID-19 2020-11-11 Completed Unive rsity of PFIZER VACCINE 00:00:00 [facility] [place] [facility] SARS-COV-2 COVID-19 2020-10-21 Completed Unive rsity of PFIZER VACCINE 00:00:00 [facility] [place] [facility] SARS-COV-2 COVID-19 2020-10-21 Completed Unive rsity of PFIZER VACCINE 00:00:00 [facility] [place] [facility] Vital Signs Vital Name Observation Time Observation Value Comments Source WEIGHT 2021-03-10 62.596 kg 11:08:00 Systolic blood 2021-07-24 144 mm[Hg] University of pressure 19:28:00 [facility] Diastolic blood 2021-07-24 90 mm[Hg] University o f pressure 19:28:00 [facility] Heart rate 2021-07-24 87 /min [facility] 19:28:00 [facility] Respiratory rate 2021-07-24 18 /min [facility] 19:28:00 [facility] Oxygen saturation 2021-07-24 97 /min [facility] Arterial blood 19:28:00 [facility] by Pulse oximetry [place] Body temperature 2021-07-24 37 Carolann [facility] 16:20:00 [facility] Body weight 2021-07-24 61.236 kg University 16:20:00 [facility] BMI 2021-07-24 25.51 kg/m2 University 16:20:00 [facility] HEIGHT 2021-05-04 152.4 cm 17:29:00 WEIGHT 2021-05-04 61.689 kg 17:29:00 HEIGHT 2021-05-04 152.4 cm 17:29:00 WEIGHT 2021-05-04 61.689 kg 17:29:00 WEIGHT 2021-03-10 62.596 kg 11:08:00 Systolic blood 2021-05-07 156 mm[Hg] [facility] - pressure 08:00:00 [facility] Diastolic blood 2021-05-07 74 mm[Hg] [facility] - pressure 08:00:00 [facility] Heart rate 2021-05-07 76 /min [facility] - 08:00:00 [facility] Body temperature 2021-05-[address] [facility] - 08:00:00 [facility] Respiratory rate 2021-05-07 17 /min [facility] - 08:00:00 [facility] Oxygen saturation 2021-05-07 97 /min [facility] St Vinesk es - in Arterial blood 08:00:00 Medical Ce nter by Pulse oximetry Body height 2021-05-04 152.4 cm [facility] St Tian - 17:29:00 [facility] Body weight 2021-05-04 61.689 kg [facility] St Tian - 17:29:00 [facility] BMI 2021-05-04 26.56 kg/m2 [facility] St Tian - 17:29:00 [facility] BP Systolic 2018-02-01 131 mm[Hg] Location: [facility]; [facility] 08:36:00 Position: [place] Physician s Sitting BP Diastolic 2018-02-01 78 mm[Hg] Location: [facility] 08:36:00 Position: [place] Physician s Sitting Height 2018-02-01 60 [in_us] [facility] 08:36:00 [place] Physician s Weight 2018-02-01 117 [lb_av] [facility] 08:36:00 [place] Physician s Body Mass Index 2018-02-01 22.85 kg/m2 [facility] Calculated 08:36:00 [place] Physician s Heart Rate 2018-02-01 73 /min Location: [facility] 08:36:00 Brachial [place] Physician s Artery; Procedures Procedure Date / Time Performing Clinician Source Performed CT ABDOMEN PELVIS W 2021-07-24 18:00:55 Glenn Fu [facility] CONTRAST Medical Branch URINALYSIS 2021-07-24 17:39:00 [facility] LIPASE 2021-07-24 16:33:00 Fu, [facility] COMP. METABOLIC PANEL 2021-07-24 16:33:00 Glenn Fu [facility] ([id number]) Medical Branch CBC WITH DIFF 2021-07-24 16:33:00 [facility] NOTICE OF PRIVACY 2021-07-24 16:11:11 Doctor Juan, [facility] PRACTICES [place] [facility] CONSENT/REFUSAL FOR 2021-07-24 16:10:58 Doctor Juan, [facility] DIAGNOSIS AND TREATMENT [place] [facility] REPORT OF PROCEDURE - 2021-05-06 16:07:30 Juan Alberto Shelton [facility] - ENDOSCOPY [facility] ERCP,DIRECT VISUALIZATION 2021-05-06 15:00:00 Juan Alberto Shelton [facility] PROCEDURE W/ C-ARM 2021-05-06 15:00:00 Juan Alberto Shelton Yasmani [facility] S [facility] ERCP,BALLOON SWEEPING 2021-05-06 15:00:00 [facility] CBC W/PLT COUNT & AUTO 2021-05-06 05:51:00 Stephky [facility] DIFFERENTIAL [facility] BASIC METABOLIC PANEL (7) 2021-05-06 05:51:00 Fabiánicherjenny, [facility] HEPATIC FUNCTION PANEL 2021-05-06 05:51:00 Krzysztoferjenny [facility] ABORH, MANUAL 2021-05-05 05:07:00 Zunilda Rubin [facility] TYPE AND SCREEN, 2021-05-05 04:14:00 Roxie [facility] AUTOMATED [facility] PROTHROMBIN TIME/INR 2021-05-05 04:14:00 [facility] SARS-COV2/RT-PCR ([facility] & 2021-05-05 00:18:00 Britney [facility] - REF LABS) [facility] BLOOD GAS, VENOUS 2021-05-05 00:14:00 Roxie [facility] KETONE, BLOOD 2021-05-05 00:14:00 Roxie [facility] HIGH SENSITIVITY TROPONIN 2021-05-05 00:14:00 Roxie [place] Bravo [facility] ED ECG INTERPRETATION 2021-05-04 23:15:17 Nilton [facility] BASIC METABOLIC PANEL (7) 2021-05-04 21:30:00 Cherie Faustin [facility] HEPATIC FUNCTION PANEL 2021-05-04 21:30:00 Roxie [facility] AMYLASE 2021-05-04 21:30:00 Roxie [facility] LIPASE 2021-05-04 21:30:00 Roxie [facility] CBC W/PLT COUNT & AUTO 2021-05-04 19:37:00 Roxie [facility] ECG 12-LEAD 2021-05-04 19:22:33 Unknown, Hl7 [facility] POCT-GLUCOSE METER 2021-03-11 08:21:00 Jessica Boone [facility] COMPREHENSIVE METABOLIC 2021-03-11 06:09:00 [facility] REPORT OF PROCEDURE - 2021-03-10 23:43:51 [facility] ENDOSCOPY URL [facility] POCT-GLUCOSE METER 2021-03-10 16:43:00 [facility] PO[facility]-GLUCOSE METER 2021-03-10 12:45:00 [facility] [place] ERCP 2021-03-10 12:02:[address] [facility] ERCP,PAPILLOTOMY 2021-03-10 11:31:00 Kathy [facility] PROCEDURE W/ C-ARM 2021-03-10 11:31:00 Kathy [facility] ERCP,BALLOON SWEEPING 2021-03-10 11:31:00 Kathy [facility] POCT-GLUCOSE METER 2021-03-10 09:07:00 [facility] CBC (HEMOGRAM ONLY) 2021-03-10 04:50:00 [place] [facility] COMPREHENSIVE METABOLIC 2021-03-10 04:50:00 [place] [facility] HEMOGLOBIN A1C 2021-03-10 04:50:00 [facility] POCT-GLUCOSE METER 2021-03-09 23:54:00 [facility] SARS-COV2/RT-PCR ([facility] & 2021-03-09 20:13:00 [place]uggan Desiree [facility] - REF LABS) [facility] POCT-GLUCOSE METER 2021-03-09 17:22:00 [facility] MR ABDOMEN WITHOUT IV 2021-03-09 15:38:00 [facility] CONTRAST MRCP [facility] POCT-GLUCOSE METER 2021-03-09 12:22:00 [facility] URINALYSIS W/ REFLEX 2021-03-09 10:56:00 [facility] URINE CULTURE [facility] HEPATIC FUNCTION PANEL 2021-03-09 05:25:00 [facility] PROTHROMBIN TIME/INR 2021-03-09 05:25:00 [facility] MAGNESIUM 2021-03-09 05:25:00 [facility] BASIC METABOLIC PANEL (7) 2021-03-09 05:25:00 [facility] CBC W/PLT COUNT & AUTO 2021-03-09 05:25:00 [facility] DIFFERENTIAL [facility] HEMOGLOBIN A1C 2021-03-09 05:25:00 [facility] MRI Brain wo contrast 2018-02-08 00:00:00 [facility] [id number] Physicians MRI Brain w/wo contrast 2018-02-01 00:00:00 [facility] [id number] Physicians History of Gallbladder [place] [facility] surgery Physicians Plan of Care Planned Activity Planned Date Details Comments Source Future Scheduled 2021-09-09 Hemoglobin A1c [facility] kes - Test 00:00:00 measurement Medical Center (procedure) [code = 33474895] Future Scheduled 2021-09-[address] [facility] kes - Test 00:00:00 measurement Medical Center (procedure) [code = 25038621] Future Scheduled 2021-09-[address] [facility] kes - Test 00:00:00 measurement Medical Center (procedure) [code = 83374346] Future Scheduled 2021-09-[address] [facility] kes - Test 00:00:00 measurement Medical Center (procedure) [code = 83694850] Future Scheduled 2021-05-13 INFLUENZA VACCINE (#1) C [...] [facility]ukes - Test 00:00:00 (1 of 1 [facility] [place] [facility] [id number] PCV13) [code = PNEUMOCOCCAL 65+ YRS (1 of 1 - KRKK23_Hueszmq PCV13)] Future Scheduled 2013 PNEUMOCOCCAL 65+ YRS [facility] - Test 00:00:00 (1 of 1 Medical [facility] [id number]_Qtxiydn PCV13) [code = PNEUMOCOCCAL 65+ YRS (1 of 1 - AXTT06_Kfechpz PCV13)] Future Scheduled 2013 PNEUMOCOCCAL 65+ YRS [facility] - Test 00:00:00 (1 of 1 Medical [facility] [place] [facility] MOJR71_Nocyzmf PCV13) [code = PNEUMOCOCCAL 65+ YRS (1 of 1 - JLMI29_Mbawopt PCV13)] Future Scheduled 2013 PNEUMOCOCCAL 65+ Y[facility] - Test 00:00:00 ([address] [place] [address] Center JBXU35_Pzxguwd PCV13) [code = PNEUMOCOCCAL 65+ YRS (1 of 1 - XLOH48_Xncoanj PCV13)] Future Scheduled 2004-10-14 MEDICARE ANNUAL CHI [...] 00:00:00 examination Medical Center (regime/therapy) [code = 142721822] Future Scheduled 1958 Urine screening [facility] - Test 00:00:00 protein (procedure) Medical Center [code = 061174347] Future Scheduled 1960 DIABETIC EYE EXAM [facility] - Test 00:00:00 [code = DIABETIC EYE Medical Center EXAM] Future Scheduled [address] [facility] - Test 00:00:00 examination Medical Center (regime/therapy) [code = 846895124] Future Scheduled 1958 Urine screening [facility] - Test 00:00:00 protein (procedure) Medical Center [code = 340546888] Future Scheduled 1960 DIABETIC EYE EXAM [facility] - Test 00:00:00 [code = DIABETIC EYE Medical Center EXAM] Future Scheduled [address] [facility] - Test 00:00:00 examination Medical Center (regime/therapy) [code = 007975078] Future Scheduled 1958 Urine screening [facility] - Test 00:00:00 protein (procedure) Medical Center [code = 386327168] Future Scheduled 1958 DIABETIC EYE EXAM [facility] - Test 00:00:00 [code = DIABETIC EYE Medical Center EXAM] Future Scheduled [address] [facility] - Test 00:00:00 examination Medical Center (regime/therapy) [code = 374299712] Future Scheduled 1958 Urine screening [facility] - Test 00:00:00 protein (procedure) Medical Center [code = 322929137] Future Scheduled [address] [facility] - Test 00:00:00 malignant neoplasm of Medica l Center breast (procedure) [code = 582692569] Future Scheduled [address] [facility] - Test 00:00:00 malignant neoplasm of Medica l Center colon (procedure) [code = 079820557] Future Scheduled [address] [facility] - Test 00:00:00 malignant neoplasm of Medica l Center breast (procedure) [code = 389724601] Future Scheduled [address] [facility] - Test 00:00:00 malignant neoplasm of Medica l Center colon (procedure) [code = 624645806] Future Scheduled [address] [facility] - Test 00:00:00 malignant neoplasm of Medica l Center breast (procedure) [code = 878406692] Future Scheduled [address] [facility] - Test 00:00:00 malignant neoplasm of Medica l Center colon (procedure) [code = 335497029] Future Scheduled [address] [facility] - Test 00:00:00 malignant neoplasm of Medica l Center breast (procedure) [code = 149466603] Future Scheduled [address] [facility] - Test 00:00:00 malignant neoplasm of Medica l Center colon (procedure) [code = 354094812] Encounters Start End Encounter Admission Attending Care Care Encounter Source Date/Time Date/Time Type Type Clinicians Facility Department ID 2021-06-21 Inpatient ER ADIO, [facility] G[facility] [id number] [facility] 02:39:12 TIT[place] 2021-08-10 2021-08-10 Outpatient DARIANAORION [facility] [id number] [facility] 10:38:01 17:18:04 LEV [place] e of Medicin e 2021-07-24 2021-07-24 Emergency X FU [facility] ERT [id number] Univers 10:12:00 14:31:00 GLENN itwolf of [facility] 2021-07-24 2021-07-24 Emergency [facility] [id number] Univers 10:12:00 14:31:00 Glenn DONATO [id number] i ty [facility] [id number] [facility] [id number] [facility] 084 Branch 2021-07-24 2021-07-24 Orders Doctor HEAVEN [id number] [facility] 00:00:00 00:00:00 Only Unassigned, ARIS [id number] ity of [place] [facility] [id number] [facility] [id number] [facility] 009 Branch 2021-05-04 2021-05-07 [facility] Cherie Faustin [facility] [id number] 17:37:00 10:59:[address] [facility] Jerome[facility]ari mcduffie [facility] 2021-05-06 2021-05-06 Anesthesia Denise Quispe [facility] [id number] 15:10:00 16:27:00 Event Jm Rushing [facility] 2021-05-06 2021-05-06 Surgery Nikita [facility] [id number] 13:00:00 14:30:00 [facility] 2021-05-05 2021-05-05 Travel [facility] [id number] [facility] 00:[facility]:00 00:00:00 [facility] 2021-05-04 2021-05-04 Outpatient [facility] [id number] [facility] 00:00:00 23:59:00 [facility] Medicin e 2021-05-04 2021-05-04 Emergency ER [facility] Emergency [id number] [facility] 17:24:00 17:24:00 2021-05-04 2021-05-04 Orders [facility] [id number] 00:00:00 00:00:00 Only [facility] 2021-05-04 2021-05-04 Travel [facility] [id number] [facility] 00:00:00 00:00:00 [facility] 2021-05-01 2021-05-01 Emergency [id number] 16:21:00 22:56:00 [facility] 2021-03-13 2021-03-13 Telephone Ezequiel, [facility] [id number] [facility] [address] 00:00:00 00:00:00 Tyesha Mojica [facility] 2021-03-08 2021-03-11 Hospital ER Curtis BurnettKenrick [facility] [id number] [facility] [address] 23:13:00 11:35:00 Encounter Bret Schuster [facility] 2021-03-10 2021-03-10 Surgery Kathy [facility] [id number] [facility] [address] 11:00:00 [facility]:30[facility]00 [facility] 2021-03-10 2021-03-10 Anesthesia Josef [facility] [id number] 11:36:00 12:27:00 Event Graciela Col[facility] 2018-02-01 2018-02-01 Appointmen BRENDAN OSORIO Neurology [id number] Univers 08:00:00 08:00:00 t; HOLLIE OSORIO ity of CHRISTINA, M.D. [place] M.D. Physici ans Results Test Description Test Time Test Comments Results Result Comments Source COMP. METABOLIC PANEL (04898) 2021-07-24 17:14:29 Test Item Value Reference Range Interpretation Comme nts NA (test code = 5924908956) 139 mmol/L 135-145 K (test code = 2448665179) 4.3 mmol/L 3.5-5.0 CL (test code = 3328535312) 104 mmol/L 98-108 CO2 TOTAL (test code = 0089117066) 24 mmol/L 23-31 AGAP (test code = 6472842852) 2-16 BUN (test code = 5724988276) 18 mg/dL 7-23 GLUCOSE (test code = 7863194240) 104 mg/dL 70-110 CREATININE (test code = 1.39 mg/dL 0.50-1.04 H 0723967632) TOTAL BILI (test code = 0.4 mg/dL 0.1-1.7 3479236005) CALCIUM (test code = 5411104580) 9.6 mg/dL 8.6-10.6 T PROTEIN (test code = 8776547088) 8.4 g/dL 6.3-8.2 H ALBUMIN (test code = 2395583915) 4.6 g/dL 3.5-5.0 ALK PHOS (test code = 2051740454) 93 U/L 34-122 ALTv (test code = 1742-6) 44 U/L 5-35 H AST(SGOT) (test code = 9395673175) 48 U/L 13-40 H eGFR (test code = 2250831349) mL/min/1.73m2 TORRES (test code = TORRES) Association [...] tests). Lab Interpretation (test code = Abnormal 31913-0) [facility]13:49 Test Item Value Reference Range Interpretation Comments LIPASE (test code = 7363516453) 266 U/L 0-220 H Lab Interpretation (test code = Abnormal 45708-6) [facility] [id number] 17:03:27 Test Item Value Reference Range Interpretation Comments WBC (test code = See_Comment [Automated 1290-2) message] The sy stem which generated this result transmitted reference range : 4.30 - 11.10 10*3/?L. The reference range was not used to interpret this result as normal/abnormal . RBC (test code = See_Comment [Automated 169-8) message] The sy stem which generated this [...] RDW-SD (test code = 48.4 fL 39.0-49.9 14256-3) RDW-CV (test code = 13.8 % 12.0-15.5 788-0) PLT (test code = See_Comment [Automated 307-3) message] The sy stem which generated this result transmitted reference range : 166 - 358 10*3/ ?L. The reference r becca was not used to interpret this result as normal/abnormal . MPV (test code = 9.1 fL 9.5-12.9 L 29230-9) NRBC/100 WBC (test See_Comment [Automat ed code = [id number]) message] The system which generated this result transmitted reference range : 0.0 - 10.0 /100 WBCs. The refer ence range was not u sed to interpret th is result as normal/abnormal . NRBC x10^3 (test code <0.01 See_Comment [Auto mated = [id number]) message] The s ystem which generated this result transmitted reference range : 10*3/?L. The reference range was not used to interpret this result as normal/abnormal . GRAN MAT (NEUT) % 64.8 % (test code = 770-8) IMM GRAN % (test code 0.90 % = 3198686356) LYMPH % (test code = 24.2 % 736-9) MONO % (test code = 8.2 % 5905-5) EOS % (test code = 1.4 % 713-8) BASO % (test code = 0.5 % 706-2) GRAN MAT x10^3(ANC) 5.59 10*3/uL 1.88-7.09 (test code = 1289782150) IMM GRAN x10^3 (test 0.08 10*3/uL 0.00-0.06 H code = 3519729861) LYMPH x10^3 (test code 2.09 10*3/uL 1.32-3.29 = 731-0) MONO x10^3 (test code 0.71 10*3/uL 0.33-0.92 = 742-7) EOS x10^3 (test code = 0.12 10*3/uL 0.03-0.39 711-2) BASO x10^3 (test code 0.04 10*3/uL 0.01-0.07 = 704-7) Lab Interpretation Abnormal (test code = 09217-1) [facility] [id number]:00 Test Item Value Reference Range Interpretation Comments Sodium (test code = 139 meq/L 150-146 8645-2) Potassium (test 4.1 meq/L 3.5-5.1 code = 2823-3) Chloride (test code 107 meq/L 98-107 = 2075-0) CO2 (test code = 25 meq/L -2027-) BUN (test code = 13 mg/dL 7-21 3094-0) Creatinine (test 0.97 mg/dL 0.57-1.25 code = 2160-0) Glucose (test code 80 mg/dL 70-105 = 2345-7) Calcium (test code 8.9 mg/dL 8.4-10.2 = 05906-5) EGFR (test code = 56 mL/min/1.[address] [place] [address]-2) NOT ACCURATE CREATININE CLEARANCE IN PREDICTING GLOMERULAR FILTRATION RATE . ESTIMATED GFR I S NOT APPLICABLE FOR DIALYSIS PATIEN TORRES (test code = Accountant Cost ID - TORRES) TOÑITO Camacho [facility] [id number] 07:08:00 Test Item Value Reference Range Interpretation Comments Protein, Total (test 6.9 See_Comment [Autom ated code = 2885-2) message] The system which generated this result transmit lane reference range : 6.0 - 8.3 gm/dL . The reference range was not u sed to interpret th is result as normal/abnormal . Albumin (test code = 3.6 g/dL 3.5-5 65915-1) Total Bilirubin (test 0.3 mg/dL 0.2-1.2 code = 1975-2) Bilirubin, Direct 0.2 mg/dL 0.1-0.5 (test code = 1967-7) Alkaline Phosphatase 56 U/L 40-150 (test code = 6768-6) AST (test code = 37 U/L 5-34 H 1920-8) ALT (test code = 50 U/L 6-55 1742-6) TORRES (test code = TORRES) Accountant Cost ID - TOÑITO Camacho Lab Interpretation Abnormal (test code = 75684-6) [facility] [id number] 07:08:00 Test Item Value Reference Range Interpretation Comments Sodium (test code = 139 meq/L 614-985 4832-2) Potassium (test 4.1 meq/L 3.5-5.1 code = 2823-3) Chloride (test code 107 meq/L 98-107 = 2075-0) CO2 (test code = 25 meq/L 22-29 2027-9) BUN (test code = 13 mg/dL 7-21 3094-0) Creatinine (test 0.97 mg/dL 0.57-1.25 code = 2160-0) Glucose (test code 80 mg/dL 70-105 = 2345-7) Calcium (test code 8.9 mg/dL 8.4-10.2 = 13142-1) EGFR (test code = 56 mL/min/1.[address] [place] [address]-2) NOT ACCURATE CREATININE CLEARANCE IN PREDICTING GLOMERULAR FILTRATION RATE . ESTIMATED GFR I S NOT APPLICABLE FOR DIALYSIS PATIEN TORRES (test code = Accountant Cost ID - TORRES) TOÑITO Camacho [facility] [id number] 07:08:00 Test Item Value Reference Range Interpretation Comments Protein, Total (test 6.9 See_Comment [Autom ated code = 2885-2) message] The system which generated this result transmit lane reference range : 6.0 - 8.3 gm/dL . The reference range was not u sed to interpret th is result as normal/abnormal . Albumin (test code = 3.6 g/dL 3.5-5 40368-0) Total Bilirubin (test 0.3 mg/dL 0.2-1.2 code = 1974-2) Bilirubin, Direct 0.2 mg/dL 0.1-0.5 (test code = 1968-7) Alkaline Phosphatase 56 U/L 40-150 (test code = 6768-6) AST (test code = 37 U/L 5-34 H 1920-8) ALT (test code = 50 U/L 6-55 1742-6) TORRES (test code = TORRES) Accountant Cost ID - TOÑITO Camacho Lab Interpretation Abnormal (test code = 85270-7) [facility] [id number] 07:08:00 Test Item Value Reference Range Interpretation Comments Sodium (test code = 139 meq/L 792-507 1508-2) Potassium (test 4.1 meq/L 3.5-5.1 code = 2823-3) Chloride (test code 107 meq/L 98-107 = 2075-0) CO2 (test code = 25 meq/L -2028-05) BUN (test code = 13 mg/dL 7-21 3094-0) Creatinine (test 0.97 mg/dL 0.57-1.25 code = 2160-0) Glucose (test code 80 mg/dL 70-105 = 2345-7) Calcium (test code 8.9 mg/dL 8.4-10.2 = 92033-9) EGFR (test code = 56 mL/min/1.[address] [place] [address]-1) NOT ACCURATE CREATININE CLEARANCE IN PREDICTING GLOMERULAR FILTRATION RATE . ESTIMATED GFR I S NOT APPLICABLE FOR DIALYSIS PATIEN TORRES (test code = Accountant Cost ID - TORRES) TOÑITO Camacho [facility] [id number] 07:08:00 Test Item Value Reference Range Interpretation Comments Protein, Total (test 6.9 See_Comment [Autom ated code = 2885-2) message] The system which generated this result transmit lane reference range : 6.0 - 8.3 gm/dL . The reference range was not u sed to interpret th is result as normal/abnormal . Albumin (test code = 3.6 g/dL 3.5-5 91262-9) Total Bilirubin (test 0.3 mg/dL 0.2-1.2 code = 1974-2) Bilirubin, Direct 0.2 mg/dL 0.1-0.5 (test code = 1967-7) Alkaline Phosphatase 56 U/L 40-150 (test code = 6768-6) AST (test code = 37 U/L 5-34 H 192-8) ALT (test code = 50 U/L 6-55 1742-6) TORRES (test code = TORRES) Accountant Cost ID - TOÑITO Camacho Lab Interpretation Abnormal (test code = 20354-5) [facility] [id number] 07:08:00 Test Item Value Reference Range Interpretation Comments Sodium (test code = 139 meq/L 948-955 1198-2) Potassium (test 4.1 meq/L 3.5-5.1 code = 2823-3) Chloride (test code 107 meq/L 98-107 = 2075-0) CO2 (test code = 25 meq/L -29 2028-9) BUN (test code = 13 mg/dL 7-21 3094-0) Creatinine (test 0.97 mg/dL 0.57-1.25 code = 2160-0) Glucose (test code 80 mg/dL 70-105 = 2345-7) Calcium (test code 8.9 mg/dL 8.4-10.2 = 61052-2) EGFR (test code = 56 mL/min/1.[address] [place] [address]-8) NOT ACCURATE CREATININE CLEARANCE IN PREDICTING GLOMERULAR FILTRATION RATE . ESTIMATED GFR I S NOT APPLICABLE FOR DIALYSIS PATIEN TORRES (test code = Accountant Cost ID - TORRES) TOÑITO Camacho [facility] [id number] 07:08:00 Test Item Value Reference Range Interpretation Comments Protein, Total (test 6.9 See_Comment [Autom ated code = 2885-2) message] The system which generated this result transmit lane reference range : 6.0 - 8.3 gm/dL . The reference range was not u sed to interpret th is result as normal/abnormal . Albumin (test code = 3.6 g/dL 3.5-5 10927-9) Total Bilirubin (test 0.3 mg/dL 0.2-1.2 code = 1974-2) Bilirubin, Direct 0.2 mg/dL 0.1-0.5 (test code = 1967-7) Alkaline Phosphatase 56 U/L 40-150 (test code = 6768-6) AST (test code = 37 U/L 5-34 H 1920-8) ALT (test code = 50 U/L 6-55 2-6) TORRES (test code = TORRES) Accountant Cost ID - TOÑITO Doug Lab Interpretation Abnormal (test code = 39066-3) [facility] [id number] 07:08:00 Test Item Value Reference Range Interpretation [...] S NOT APPLICABLE FOR DIALYSIS PATIEN TS. Accountant Cost ID - PIAYA LHEPATIC FUNCTION [id number] 07:08:00 Test Item Value Reference Range Interpretation [...] (test code = 50 U/L 6-55 347) Accountant Cost ID - PIJOVANNI LCBC with platelet count + automated [id number] 06:01:00 Test Item Value Reference Range Interpretation Comments WBC (test code = 6690-2) 7.9 See_Comment [A utomated message] The system [employer] generated this result transmitted ref erence range: 3.5 - 10 .5 K/L. The refe rence range was not u sed to interpret this result as normal/abnor mal. RBC (test code = 789-8) 3.22 See_Comment L [Au tomated message] The system [employer] generated this result transmitted ref erence range: 3.93 - 5 .22 M/L. The refe rence range was not u sed to interpret this result as normal/abnor mal. MCHC (test code = 786-4) 31.8 See_Comment L [A utomated message] The system [employer] generated this result transmitted ref erence range: [...] See_Comment [Aut omated message] 777-3) The system [employer] generated this result transmitted ref erence range: 150 - 45 0 K/CU MM. The referen ce range was not u sed to interpret this result as normal/abnor mal. MPV (test code = 8.9 fL 9.4-12.3 L 37724-9) nRBC (test code = 413) 0 See_Comment [Aut omated message] The system [employer] generated this result transmitted ref erence range: [...] See_Comment [Aut omated message] 670) The system [employer] generated this result transmitted ref erence range: 1.56 - 6 .13 K/L. The refe rence range was not u sed to interpret this result as normal/abnor mal. # Lymphs (test code = 2.20 See_Comment [Auto mated message] 414) The system [employer] generated this result transmitted ref erence range: 1.18 - 3 .74 K/L. The refe rence range was not u sed to interpret this result as normal/abnor mal. # Monos (test code = 0.54 See_Comment H [Autom ated message] 415) The system [employer] generated this result transmitted ref erence range: 0.24 - 0 .36 K/L. The refe rence range was not u sed to interpret this result as normal/abnor mal. # Eos (test code = 416) 0.08 See_Comment [Au tomated message] The system [employer] generated this result transmitted ref erence range: 0.04 - 0 .36 K/L. The refe rence range was not u sed to interpret this result as normal/abnor mal. # Baso (test code = 417) 0.03 See_Comment [A utomated message] The system [employer] generated this result transmitted ref erence range: 0.01 - 0 .08 K/L. The refe rence range was not u sed to interpret this result as normal/abnor mal. Immature 0 % 0-1 Granulocytes-Relative (test code = 2801) Lab Interpretation (test Abnormal code = 14403-0) [facility] with platelet count + automated [id number] 06:01:00 Test Item Value Reference Range Interpretation Comments WBC (test code = 6690-2) 7.9 See_Comment [A utomated message] The system [employer] generated this result transmitted ref erence range: 3.5 - 10 .5 K/L. The refe rence range was not u sed to interpret this result as normal/abnor mal. RBC (test code = 789-8) 3.22 See_Comment L [Au tomated message] The system [employer] generated this result transmitted ref erence range: 3.93 - 5 .22 M/L. The refe rence range was not u sed to interpret this result as normal/abnor mal. MCHC (test code = 786-4) 31.8 See_Comment L [A utomated message] The system [employer] generated this result transmitted ref erence range: [...] See_Comment [Aut omated message] 777-3) The system [employer] generated this result transmitted ref erence range: 150 - 45 0 K/CU MM. The referen ce range was not u sed to interpret this result as normal/abnor mal. MPV (test code = 8.9 fL 9.4-12.3 L 83219-3) nRBC (test code = 413) 0 See_Comment [Aut omated message] The system [employer] generated this result transmitted ref erence range: [...] See_Comment [Aut omated message] 670) The system [employer] generated this result transmitted ref erence range: 1.56 - 6 .13 K/L. The refe rence range was not u sed to interpret this result as normal/abnor mal. # Lymphs (test code = 2.20 See_Comment [Auto mated message] 414) The system [employer] generated this result transmitted ref erence range: 1.18 - 3 .74 K/L. The refe rence range was not u sed to interpret this result as normal/abnor mal. # Monos (test code = 0.54 See_Comment H [Autom ated message] 415) The system [employer] generated this result transmitted ref erence range: 0.24 - 0 .36 K/L. The refe rence range was not u sed to interpret this result as normal/abnor mal. # Eos (test code = 416) 0.08 See_Comment [Au tomated message] The system [employer] generated this result transmitted ref erence range: 0.04 - 0 .36 K/L. The refe rence range was not u sed to interpret this result as normal/abnor mal. # Baso (test code = 417) 0.03 See_Comment [A utomated message] The system [employer] generated this result transmitted ref erence range: 0.01 - 0 .08 K/L. The refe rence range was not u sed to interpret this result as normal/abnor mal. Immature 0 % 0-1 Granulocytes-Relative (test code = 2801) Lab Interpretation (test Abnormal code = 31929-5) [facility] with platelet count + automated [id number] 06:01:00 Test Item Value Reference Range Interpretation Comments WBC (test code = 6690-2) 7.9 See_Comment [A utomated message] The system [employer] generated this result transmitted ref erence range: 3.5 - 10 .5 K/L. The refe rence range was not u sed to interpret this result as normal/abnor mal. RBC (test code = 789-8) 3.22 See_Comment L [Au tomated message] The system [employer] generated this result transmitted ref erence range: 3.93 - 5 .22 M/L. The refe rence range was not u sed to interpret this result as normal/abnor mal. MCHC (test code = 786-4) 31.8 See_Comment L [A utomated message] The system [employer] generated this result transmitted ref erence range: [...] code = 282 See_Comment [Aut omated message] 607-3) The system [employer] generated this result transmitted ref erence range: 150 - 45 0 K/CU MM. The referen ce range was not u sed to interpret this result as normal/abnor mal. MPV (test code = 8.9 fL 9.4-12.3 L 64891-5) nRBC (test code = 413) 0 See_Comment [Aut omated message] The system [employer] generated this result transmitted ref erence range: [...] See_Comment [Aut omated message] 670) The system [employer] generated this result transmitted ref erence range: 1.56 - 6 .13 K/L. The refe rence range was not u sed to interpret this result as normal/abnor mal. # Lymphs (test code = 2.20 See_Comment [Auto mated message] 414) The system [employer] generated this result transmitted ref erence range: 1.18 - 3 .74 K/L. The refe rence range was not u sed to interpret this result as normal/abnor mal. # Monos (test code = 0.54 See_Comment H [Autom ated message] 415) The system [employer] generated this result transmitted ref erence range: 0.24 - 0 .36 K/L. The refe rence range was not u sed to interpret this result as normal/abnor mal. # Eos (test code = 416) 0.08 See_Comment [Au tomated message] The system [employer] generated this result transmitted ref erence range: 0.04 - 0 .36 K/L. The refe rence range was not u sed to interpret this result as normal/abnor mal. # Baso (test code = 417) 0.03 See_Comment [A utomated message] The system [employer] generated this result transmitted ref erence range: 0.01 - 0 .08 K/L. The refe rence range was not u sed to interpret this result as normal/abnor mal. Immature 0 % 0-1 Granulocytes-Relative (test code = 2801) Lab Interpretation (test Abnormal code = 55322-5) [facility] with platelet count + automated [id number] 06:01:00 Test Item Value Reference Range Interpretation Comments WBC (test code = 6690-2) 7.9 See_Comment [A utomated message] The system [employer] generated this result transmitted ref erence range: 3.5 - 10 .5 K/L. The refe rence range was not u sed to interpret this result as normal/abnor mal. RBC (test code = 789-8) 3.22 See_Comment L [Au tomated message] The system [employer] generated this result transmitted ref erence range: 3.93 - 5 .22 M/L. The refe rence range was not u sed to interpret this result as normal/abnor mal. MCHC (test code = 786-4) 31.8 See_Comment L [A utomated message] The system [employer] generated this result transmitted ref erence range: [...] See_Comment [Aut omated message] 777-3) The system [employer] generated this result transmitted ref erence range: 150 - 45 0 K/CU MM. The referen ce range was not u sed to interpret this result as normal/abnor mal. MPV (test code = 8.9 fL 9.4-12.3 L 88863-2) nRBC (test code = 413) 0 See_Comment [Aut omated message] The system [employer] generated this result transmitted ref erence range: [...] See_Comment [Aut omated message] 670) The system [employer] generated this result transmitted ref erence range: 1.56 - 6 .13 K/L. The refe rence range was not u sed to interpret this result as normal/abnor mal. # Lymphs (test code = 2.20 See_Comment [Auto mated message] 414) The system [employer] generated this result transmitted ref erence range: 1.18 - 3 .74 K/L. The refe rence range was not u sed to interpret this result as normal/abnor mal. # Monos (test code = 0.54 See_Comment H [Autom ated message] 415) The system [employer] generated this result transmitted ref erence range: 0.24 - 0 .36 K/L. The refe rence range was not u sed to interpret this result as normal/abnor mal. # Eos (test code = 416) 0.08 See_Comment [Au tomated message] The system [employer] generated this result transmitted ref erence range: 0.04 - 0 .36 K/L. The refe rence range was not u sed to interpret this result as normal/abnor mal. # Baso (test code = 417) 0.03 See_Comment [A utomated message] The system [employer] generated this result transmitted ref erence range: 0.01 - 0 .08 K/L. The refe rence range was not u sed to interpret this result as normal/abnor mal. Immature 0 % 0-1 Granulocytes-Relative (test code = 2801) Lab Interpretation (test Abnormal code = 67965-9) [facility] W/PLT COUNT & AUTO [id number] 06:01:00 Test Item Value Reference Range Interpretation [...] (BEAKER) (test code = 2801) ECG 12 [id number] 06:47:19Interface, External Ris In - 05/05/2021 6:47 AM CDTVentricular Rate 91 BPMAtrial Rate 91 BPMP-R Interval 126 msQRS Duration 78 msQ-T Interval 352 msQTC Calculation(Bazett) 432 msP [place] 44 degreesR [place] 28 degreesT [place] 39 degreesNormal sinus rhythmNormal ECGNo previous ECGs availableConfirmed by MD BELLAMY JOSEPH P ([id number]) on 05/05/2021 6:47:15 [facility] 12 [id number] 06:47:19Interface, External Ris In - 05/05/2021 6:47 AM CDTVentricular Rate 91 BPMAtrial Rate 91 BPMP-R Inte rval 126 msQRS Duration 78 msQ-T Interval 352 msQTC Calculation(Bazett) 432 msP [place] 44 degreesR [place] 28 degreesT [place] 39 degreesNormal sinus rhythmNormal ECGNo previous ECGs availableConfirmed by MD BELLAMY JOSEPH P ([id number]) on 05/05/2021 6:47:15 [place] [address] [id number] 06:47:19Interface, External Ris In - 05/05/2021 6:47 AM CDTVentricular Rate 91 BPMAtrial Rate 91 BPMP-R Interval 126 msQRS Duration 78 msQ-T Interval 352 msQTC Calculation(Bazett) 432 msP [place] 44 degreesR [place] 28 degreesT [place] 39 degreesNormal sinus rhythmNormal ECGNo previous ECGs availableConfirmed by OKSANA LANDRUM MD, JOSEPH P ([id number]) on 05/05/2021 6:47:15 [facility] 12 [id number] 06:47:19Interface, External Ris In - 05/05/2021 6:47 AM CDTVentricular Rate 91 BPMAtrial Rate 91 BPMP-R Interval 126 msQRS Duration 78 msQ-T Interval 352 msQTC Calculation(Bazett) 432 msP [place] 44 degreesR [place] 28 degreesT [place] 39 degreesNormal sinus rhythmNormal ECGNo previous ECGs availableConfirmed by MD BELLAMY JOSEPH P ([id number]) on 05/05/2021 6:47:15 [facility] [id number] 06:17:00 Test Item Value Reference Range Interpretation Comments ABO Grouping (test code = 2588) O Rh Factor (test code = 2589) POS [facility], [id number] 06:17:00 Test Item Value Reference Range Interpretation Comments ABO Grouping (test code = 2588) O Rh Factor (test code = 2589) POS [facility], [id number] 06:17:00 Test Item Value Reference Range Interpretation Comments ABO Grouping (test code = 2588) O Rh Factor (test code = 2589) POS [facility], [id number] 06:17:00 Test Item Value Reference Range Interpretation Comments ABO Grouping (test code = 2588) O Rh Factor (test code = 2589) [facility] ([facility]) 2021-05-05 05:01:00 Test Item Value Reference Range Interpretation Comments ABO/RH AUTOMATED (BEAKER) (test O POSITIVE code = 2260) Ab Scrn (test code = 890-4) NEGATIVE [facility] ([facility]) 2021-05-05 05:01:00 Test Item Value Reference Range Interpretation Comments ABO/RH AUTOMATED (BEAKER) (test O POSITIVE code = 2260) Ab Scrn (test code = 890-4) NEGATIVE [facility] ([facility]) 2021-05-05 05:01:00 Test Item Value Reference Range Interpretation Comments ABO/RH AUTOMATED (BEAKER) (test O POSITIVE code = 2260) Ab Scrn (test code = 890-4) NEGATIVE [facility] ([facility]) 2021-05-05 05:01:00 Test Item Value Reference Range Interpretation Comments ABO/RH AUTOMATED (BEAKER) (test O POSITIVE code = 2260) Ab Scrn (test code = 890-4) NEGATIVE [facility]PT/[id number] 04:35:00 Test Item Value Reference Interpretation Comments [...] valves. Lab Interpretation Normal (test code = 80852-3) [facility]/[id number] 04:35:00 Test Item Value Reference Interpretation Comments [...] valves. Lab Interpretation Normal (test code = 31966-0) [facility]/[id number] 04:35:00 Test Item Value Reference Interpretation Comments [...] valves. Lab Interpretation Normal (test code = 26132-0) [facility]/[id number] 04:35:00 Test Item Value Reference Interpretation Comments [...] valves. Lab Interpretation Normal (test code = 05708-9) [facility] HospitalPROTHROMBIN TIME/[id number] 04:35:00 Test Item Value Reference Range Interpretation Comments PROTIME (BEAKER) 13.7 seconds 11.9-14.2 (test code = 759) INR (BEAKER) (test 1.07 See_Comment [Automat ed message] code = 370) The system [employer] generated this result transmitted ref erence range: <=5.90. The reference range was not used to int erpret this result as normal/abnormal . RECOMMENDED COUMADIN/WARFARIN INR THERAPY RANGESSTANDARD DOSE: 2.0 - 3.0 Includes: PROPHYLAXIS forvenous thrombosis, systemic embolization; TREATMENT for venous thrombosis and/or pulmonary embolus.HIGH RISK: Target INR is 2.5-3.5 for patients with mechanical heart valves.High Sensitivity Troponin [id number] 01:56:00 Test Item Value Reference Range Interpretation Comments Troponin I HS <4 See_Comment [Automated (test code = message] [facility] [employer] [facility]) system which generated this result transmitted reference range : <=17 pg/ml. The reference range was not used to interpret this result as normal/abnormal . TORRES (test code = Accountant Cost ID - TORRES) DB[employer] DIRECT[employer] STAT High Sensitivity Troponin-I results should be used in conjunction with other diagnostic information such as ECG, clinical observations and information, and patient symptoms to aid in the diagnosis of PR. Lab Interpretation Normal (test code = 63630-5) [facility] Sensitivity Troponin [id number] 01:56:00 Test Item Value Reference Range Interpretation Comments Troponin I HS <4 See_Comment [Automated (test code = message] [facility]) system which generated this result transmitted reference range : <=17 pg/ml. The reference range was not used to interpret this result as normal/abnormal . TORRES (test code = Accountant Cost ID - TORRES) DBThe [employer] EDUCATION DIRECTOR STAT High Sensitivity Troponin-I results should be used in conjunction with other diagnostic information such as ECG, clinical observations and information, and patient symptoms to aid in the diagnosis of PR. Lab Interpretation Normal (test code = 93363-7) [facility] Troponin [id number] 01:56:00 Test Item Value Reference Range Interpretation Comments Troponin I HS <4 See_Comment [Automated (test code = message] The 29818-7) system which generated this result transmitted reference range : <=17 pg/ml. The reference range was not used to interpret this result as normal/abnormal . TORRES (test code = Accountant Cost ID - TORRES) DBThe MUSIC EDUCATION DIRECTOR STAT High Sensitivity Troponin-I results should be used in conjunction with other diagnostic information such as ECG, clinical observations and information, and patient symptoms to aid in the diagnosis of PR. Lab Interpretation Normal (test code = 34340-9) [facility] Troponin [id number] 01:56:00 Test Item Value Reference Range Interpretation Comments Troponin I HS <4 See_Comment [Automated (test code = message] The 22632-7) system which generated this result transmitted reference range : <=17 pg/ml. The reference range was not used to interpret this result as normal/abnormal . TORRES (test code = Accountant Cost ID - TORRES) DBThe MUSIC EDUCATION DIRECTOR STAT High Sensitivity Troponin-I results should be used in conjunction with other diagnostic information such as ECG, clinical observations and information, and patient symptoms to aid in the diagnosis of PR. Lab Interpretation Normal (test code = 61760-1) [facility] TROPONIN [id number] 01:56:00 Test Item Value Reference Range Interpretation Comments HIGH SENSITIVITY < pg/ml See_Comment [Automated message] TROPONIN I (test code = The system which 4991064) generated this result transmitted ref erence range: <=17. Th e reference range was not used to interpr et this result as normal/abnormal . Accountant Cost ID - DBThe MUSIC EDUCATION DIRECTOR STAT High Sensitivity Troponin-I results should be used in conjunctionwith other diagnostic information such as ECG, clinical observations and information, and patient symptoms to aid in the diagnosis of PR.Ketones, [id number] 01:40:00 Test Item Value Reference Range Interpretation Comments Ketones, Blood (test code = 1103) 0.4 mmol/L <0.4 H Lab Interpretation (test code = Abnormal 40856-8) [facility], [id number] 01:40:00 Test Item Value Reference Range Interpretation Comments Ketones, Blood (test code = 1103) 0.4 mmol/L <0.4 H Lab Interpretation (test code = Abnormal 68666-7) [facility], [id number] 01:40:00 Test Item Value Reference Range Interpretation Comments Ketones, Blood (test code = 1103) 0.4 mmol/L <0.4 H Lab Interpretation (test code = Abnormal 44445-7) [facility] [id number] 01:40:00 Test Item Value Reference Range Interpretation Comments Ketones, Blood (test code = 1103) 0.4 mmol/L <0.4 H Lab Interpretation (test code = Abnormal 61311-3) [facility] [id number] 01:40:00 Test Item Value Reference Range Interpretation Comments KETONES, BLOOD (BEAKER) (test code 0.4 mmol/L <0.4 H = 1103) SARS-CoV2/RT-PCR (Asymptomatic ONLY)2021-05-05 01:30:00 Test Item Value Reference Interpretation Comments Range SARS-COV2/RT-PCR Negative Negative The SARS-Co V-2 (test code = target nucleic 58336-7) acids are not detected in thi s [...] revoked sooner. Fact Sheet for Healthcare Providers: https://www.[employer]/Documents/Xp ert%20Xpress%20SAR S%20CoV-2/Fact%20S heets/302-3802%20S ARS-COV-2%20HEALTH CARE%20PROVIDERS%2 0FACT%20SHEET.pdf Fact Sheet for Healthcare Patients: https://www.[employer]/Documents/Xp ert%20Xpress%20SAR S%20CoV-2/Fact%20S heets/302-3801%20S ARS-COV-2%20PATIEN T%20FACT%20SHEET.p df Lab Interpretation Normal (test code = 72832-9) [facility]2021-05-05 01:30:00 Test Item Value Reference Interpretation Comments Range SARS-COV2/RT-PCR Negative Negative The SARS-Co V-2 (test code = target nucleic 58315-4) acids are not detected in thi s [...] revoked sooner. Fact Sheet for Healthcare Providers: https://www.[employer]/Documents/Xp ert%20Xpress%20SAR S%20CoV-2/Fact%20S heets/302-3802%20S ARS-COV-2%20HEALTH CARE%20PROVIDERS%2 0FACT%20SHEET.pdf Fact Sheet for Healthcare Patients: https://www.[employer]/Documents/Xp ert%20Xpress%20SAR S%20CoV-2/Fact%20S heets/302-3801%20S ARS-COV-2%20PATIEN T%20FACT%20SHEET.p df Lab Interpretation Normal (test code = 22850-2) [facility]2021-05-05 01:30:00 Test Item Value Reference Interpretation Comments Range SARS-COV2/RT-PCR Negative Negative The SARS-Co V-2 (test code = target nucleic 15028-6) acids are not detected in thi s [...] revoked sooner. Fact Sheet for Healthcare Providers: https://www.[employer]/Documents/Xp ert%20Xpress%20SAR S%20CoV-2/Fact%20S heets/302-3802%20S ARS-COV-2%20HEALTH CARE%20PROVIDERS%2 0FACT%20SHEET.pdf Fact Sheet for Healthcare Patients: https://www.[employer]/Documents/Xp ert%20Xpress%20SAR S%20CoV-2/Fact%20S heets/302-3801%20S ARS-COV-2%20PATIEN T%20FACT%20SHEET.p df Lab Interpretation Normal (test code = 02172-8) [facility]2021-05-05 01:30:00 Test Item Value Reference Interpretation Comments Range SARS-COV2/RT-PCR Negative Negative The SARS-Co V-2 (test code = target nucleic 85374-2) acids are not detected in thi s [...] revoked sooner. Fact Sheet for Healthcare Providers: https://www.[employer]/Documents/Xp ert%20Xpress%20SAR S%20CoV-2/Fact%20S heets/302-3802%20S ARS-COV-2%20HEALTH CARE%20PROVIDERS%2 0FACT%20SHEET.pdf Fact Sheet for Healthcare Patients: https://www.[employer]/Documents/Xp ert%20Xpress%20SAR S%20CoV-2/Fact%20S heets/302-3801%20S ARS-COV-2%20PATIEN T%20FACT%20SHEET.p df Lab Interpretation Normal (test code = 65383-6) [facility])2021-05-05 01:30:00 Test Item Value Reference Range Interpretation Comments SARS-COV2/RT-PCR Negative Negative The SARS-Co V-2 target (test code = nucleic acids a re not 5028733) detected in thi s specimen. Negative result [...] revoked sooner. Fact Sheet for Healthcare Providers: https://www.[employer]/Documents/Xpert%20Xpress%20SARS%20CoV-2/Fact%20Sheets/3023802%20SARS-COV -2%20HEALTHCARE%20PROVIDERS%20FACT%20SHEET.pdf Fact Sheet for Healthcare Patients: https://www.[employer]/Documents/Xpert %20Xpress%20SARS%20CoV-2/Fact%20Sheets/3023801%94GHTU-GUE-1%20PATIENT%20FACT%20 SHEET.pdfBlood gas, [id number] 01:22:00 Test Item Value Reference Range Interpretation [...] code = 59 See_Comment H [Auto mated 1275-2) message] The sy stem which generated this result transmitted reference range : 25 - 40 mm Hg. The reference range was not used to interpret this result as normal/abnormal . O2 Sat, Niranjan (test code 89.4 % 40-70 H = 2711-0) HCO3, Niranjan (test code = 21 mmol/L 21-29 65076-9) Base Excess, Niranjan (test -4.5 mmol/L -2-3 L code = 1927-3) Patient Temperature 37.0 (test code = 8310-5) FIO2 (test code = 1819) 21 Lab Interpretation Abnormal (test code = 71290-7) [facility] gas, [id number] 01:22:00 Test Item Value Reference Range Interpretation [...] Niranjan (test code = 21 mmol/L 21-29 35038-2) Base Excess, Niranjan (test -4.5 mmol/L -2-3 L code = 1927-3) Patient Temperature 37.0 (test code = 8310-5) FIO2 (test code = 1819) 21 Lab Interpretation Abnormal (test code = 14988-6) [facility] gas, [id number] 01:22:00 Test Item Value Reference Range Interpretation [...] Niranjan (test code = 21 mmol/L 21-29 34450-4) Base Excess, Niranjan (test -4.5 mmol/L -2-3 L code = 1927-3) Patient Temperature 37.0 (test code = 8310-5) FIO2 (test code = 1819) 21 Lab Interpretation Abnormal (test code = 38560-5) [facility] [id number] 01:22:00 Test Item Value Reference Range Interpretation [...] Niranjan (test code = 21 mmol/L 21-29 19280-2) Base Excess, Niranjan (test -4.5 mmol/L -2-3 L code = 1927-3) Patient Temperature 37.0 (test code = 8310-5) FIO2 (test code = 1819) 21 Lab Interpretation Abnormal (test code = 30081-0) [facility] GAS, [id number] 01:22:00 Test Item Value Reference Range Interpretation [...] (BEAKER) (test code = 1819) 21.0 ECG/EKG [id number] 23:15:Cherie Guerra MD 05/05/2021 2:11 AMECG/EKG Interpretation Date/Time: 05/04/2021 11:26 PMPerformed by: Cherie Faustin MDAuthorized by: Cherie Faustin MD The ECG was interpreted by ED physician. The ECG is interpreted as sinus rhythm. Rate is normal rate. Heart rate is 91 BPM.ST segments normal. T-wave inversion in lead(s) V1 and V2. Clinical Impression: normal ECGCH[facility] CenterECG/EKG [id number] 23:15:Cherie Guerra MD 05/05/2021 2:11 AMECG/EKG Interpretation Date/Time: 05/04/2021 11:26 PMPerformed by: Cherie Faustin MDAuthorized by: Cherie Faustin MD The ECG was interpreted by ED physician. The ECG is interpreted as sinus rhythm. Rate is normal rate. Heart rate is 91 BPM.ST segments normal. T-wave inversion in lead(s) V1 and V2. Clinical Impression: normal ECGCH[facility] CenterECG/EKG [id number] 23:15:Cherie Guerra MD 05/05/2021 2:11 AMECG/EKG Interpretation Date/Time: 05/04/2021 11:26 PMPerformed by: Cherie Faustin MDAuthorized by: Cherie Faustin MD The ECG was interpreted by ED physician. The ECG is interpreted as sinus rhythm. Rate is normal rate. Heart rate is 91 BPM.ST segments normal. T-wave inversion in lead(s) V1 and V2. Clinical Impression: normal ECGCH[facility] CenterECG/EKG Gytspplqeoniwg7342-39-63 23:15:Cherie Gurera MD 05/05/2021 2:11 AMECG/EKG Interpretation Date/Time: 05/04/2021 11:26 PMPerformed by: Cherie Faustin MDAuthorized by: Cherie Faustin MD The ECG was interpreted by ED physician. The ECG is interpreted as sinus rhythm. Rate is normal rate. Heart rate is 91 BPM.ST segments normal. T-wave inversion in lead(s) V1 and V2. Clinical Impression: normal ECGS[facility]ide HospitalHEPATIC FUNCTION [id number] 22:01:00 Test Item Value Reference Range Interpretation [...] Specimen moderately (test code = 347) hemolyzed Accountant Cost ID - [id number] 21:53:00 Test Item Value Reference Range Interpretation Comments Amylase (test code = 143 U/L 25-125 H Specime n 1798-8) markedly hemolyzed TORRES (test code = TORRES) Accountant Cost ID - DB Lab Interpretation Abnormal (test code = 18291-9) [facility]ase2021-[facility] 21:53:00 Test Item Value Reference Range Interpretation Comments Lipase (test code = 3040-3) 97 U/L 8-78 H TORRES (test code = TORRES) Accountant Cost ID - DB Lab Interpretation (test Abnormal code = 76889-3) [facility] HospitalAmylase2021-08-23 21:53:00 Test Item Value Reference Range Interpretation Comments Amylase (test code = 143 U/L 25-125 H Specime n 1798-8) markedly hemolyzed TORRES (test code = TORRES) Accountant Cost ID - DB Lab Interpretation Abnormal (test code = 51133-1) [facility]2021-[facility] 21:53:00 Test Item Value Reference Range Interpretation Comments Lipase (test code = 3040-3) 97 U/L 8-78 H TORRES (test code = TORRES) Accountant Cost ID - DB Lab Interpretation (test Abnormal code = 52274-2) [facility] HospitalAmylase2021-08-23 21:53:00 Test Item Value Reference Range Interpretation Comments Amylase (test code = 143 U/L 25-125 H Specime n 1798-8) markedly hemolyzed TORRES (test code = TORRES) Accountant Cost ID - DB Lab Interpretation Abnormal (test code = 94028-5) [facility]21-[facility] 21:53:00 Test Item Value Reference Range Interpretation Comments Lipase (test code = 3040-3) 97 U/L 8-78 H TORRES (test code = TORRES) Accountant Cost ID - DB Lab Interpretation (test Abnormal code = 88757-0) [facility] HospitalAmylase2021-08-23 21:53:00 Test Item Value Reference Range Interpretation Comments Amylase (test code = 143 U/L 25-125 H Specime n 1798-8) markedly hemolyzed TORRES (test code = TORRES) Accountant Cost ID - DB Lab Interpretation Abnormal (test code = 29061-9) [facility]2021-[facility] 21:53:00 Test Item Value Reference Range Interpretation Comments Lipase (test code = 3040-3) 97 U/L 8-78 H TORRES (test code = TORRES) Accountant Cost ID - DB Lab Interpretation (test Abnormal code = 91495-9) [facility] HospitalBASIC METABOLIC [id number] 21:53:00 Test Item Value Reference Range Interpretation [...] S NOT APPLICABLE FOR DIALYSIS PATIEN TS. Accountant Cost ID - [id number] 21:53:00 Test Item Value Reference Range Interpretation Comments AMYLASE (BEAKER) (test 143 U/L 25-125 H Speci men markedly code = 349) hemolyzed Accountant Cost ID - [id number] 21:53:00 Test Item Value Reference Range Interpretation Comments LIPASE (BEAKER) (test code = 749) 97 U/L 8-78 H Accountant Cost ID - DBCBC W/PLT COUNT & AUTO [id number] 19:51:00 Test Item Value Reference Range Interpretation [...] PERCENT (BEAKER) (test code = 2801) POC-Glucose [id number] 08:41:00 Test Item Value Reference Range Interpretation Comments POC-Glucose Meter (test 104 mg/dL 70-110 : TE STED AT [facility] code = 1538) [address] [place] [address], [facility] 30: Accountant Cost/Techni aldo ID = [id number] for HUSSEIN LEMON Lab Interpretation (test Normal code = 52931-6) [facility]-Glucose [id number] 08:41:00 Test Item Value Reference Range Interpretation Comments POC-Glucose Meter (test 104 mg/dL 70-110 : TE STED AT [facility] code = 1538) [address] [place] [address], 770 30: Accountant Cost/Techni aldo ID = [id number] for HUSSEIN LEMON Lab Interpretation (test Normal code = 51567-2) [facility]-Glucose [id number] 08:41:00 Test Item Value Reference Range Interpretation Comments POC-Glucose Meter (test 104 mg/dL 70-110 : TE STED AT [facility] code = 1538) [address] [facility], 770 30: Accountant Cost/Techni aldo ID = [id number] for HUSSEIN LEMON Lab Interpretation (test Normal code = 05423-9) [facility]-Glucose [id number] 08:41:00 Test Item Value Reference Range Interpretation Comments POC-Glucose Meter (test 104 mg/dL 70-110 : TE STED AT [facility] code = 1538) [address] [facility], 770 30: Accountant Cost/Techni aldo ID = [id number] for HUSSEIN LEMON Lab Interpretation (test Normal code = 75422-7) [facility]-GLUCOSE [id number] 08:41:00 Test Item Value Reference Range Interpretation Comments POC-GLUCOSE METER 104 mg/dL 70-110 : TESTED A T [facility] 6720 (BEAKER) (test code = [place] [facility], 1538) [address]: Accountant Cost/Techni aldo ID = [id number] for HUSSEIN DAVID Comprehensive metabolic [id number] 06:49:00 Test Item Value Reference Range Interpretation Comments Protein, Total (test 6.8 See_Comment [Autom ated code = 2885-2) message] The system which generated this result transmit lane reference range : 6.0 - 8.3 gm/dL . The reference range was not u sed to interpret th is result as normal/abnormal . Albumin (test code = 3.5 g/dL 3.5-5 40911-3) Alkaline Phosphatase 44 U/L 40-150 (test code = 6768-6) Total Bilirubin (test 0.3 mg/dL 0.2-1.2 code = 1975-2) Sodium (test code = 139 meq/L 037-999 0262-2) Potassium (test code 3.8 meq/L 3.5-5.1 = 2823-3) Chloride (test code = 104 meq/L 98-107 5-0) CO2 (test code = 27 meq/L 22-29 2027-9) BUN (test code = 12 mg/dL 7-21 3094-0) Creatinine (test code 1.05 mg/dL 0.57-1.25 = 2160-0) Glucose (test code = 79 mg/dL 70-105 2345-7) Calcium (test code = 8.4 mg/dL 8.4-10.2 59278-1) AST (test code = 49 U/L 5-34 H 1920-8) ALT (test code = 41 U/L 6-55 2-6) EGFR (test code = 52 mL/min/1.[address] [place] [address]-2) NOT ACCURATE CREATININE CLEARANCE IN PREDICTING GLOMERULAR FILTRATION RATE . ESTIMATED GFR I S NOT APPLICABLE FOR DIALYSIS PATIEN TS. TORRES (test code = TORRES) Accountant Cost ID - HUMBLE Porter Lab Interpretation Abnormal (test code = 76343-7) [facility]Comprehensive metabolic [id number] 06:49:00 Test Item Value Reference Range Interpretation Comments Protein, Total (test 6.8 See_Comment [Autom ated code = 2885-2) message] The system which generated this result transmit lane reference range : 6.0 - 8.3 gm/dL . The reference range was not u sed to interpret th is result as normal/abnormal . Albumin (test code = 3.5 g/dL 3.5-5 32040-8) Alkaline Phosphatase 44 U/L 40-150 (test code = 6768-6) Total Bilirubin (test 0.3 mg/dL 0.2-1.2 code = 1974-2) Sodium (test code = 139 meq/L 516-651 4748-2) Potassium (test code 3.8 meq/L 3.5-5.1 = 2823-3) Chloride (test code = 104 meq/L 98-107 5-0) CO2 (test code = 27 meq/L 22-29 2027-9) BUN (test code = 12 mg/dL 04-01 3094-0) Creatinine (test code 1.05 mg/dL 0.57-1.25 = 2160-0) Glucose (test code = 79 mg/dL 70-105 2345-7) Calcium (test code = 8.4 mg/dL 8.4-10.2 18092-9) AST (test code = 49 U/L 5-34 H 1920-8) ALT (test code = 41 U/L - 1742-6) EGFR (test code = 52 mL/min/1.[address] [place] [address]-6) NOT ACCURATE CREATININE CLEARANCE IN PREDICTING GLOMERULAR FILTRATION RATE . ESTIMATED GFR I S NOT APPLICABLE FOR DIALYSIS PATIEN TS. TORRES (test code = TORRES) Accountant Cost ID - HUMBLE M Lab Interpretation Abnormal (test code = 03714-5) [facility]Com[facility] metabolic [id number] 06:49:00 Test Item Value Reference Range Interpretation Comments Protein, Total (test 6.8 See_Comment [Autom ated code = 2885-2) message] The system which generated this result transmit lane reference range : 6.0 - 8.3 gm/dL . The reference range was not u sed to interpret th is result as normal/abnormal . Albumin (test code = 3.5 g/dL 3.5-5 04619-2) Alkaline Phosphatase 44 U/L 40-150 (test code = 6768-6) Total Bilirubin (test 0.3 mg/dL 0.2-1.2 code = 1975-2) Sodium (test code = 139 meq/L 381-932 8480-2) Potassium (test code 3.8 meq/L 3.5-5.1 = 2823-3) Chloride (test code = 104 meq/L 98-107 2075-0) CO2 (test code = 27 meq/L 22-29 8-9) BUN (test code = 12 mg/dL 7-21 3094-0) Creatinine (test code 1.05 mg/dL 0.57-1.25 = 2160-0) Glucose (test code = 79 mg/dL 70-105 2345-7) Calcium (test code = 8.4 mg/dL 8.4-10.2 71757-2) AST (test code = 49 U/L 5-34 H 1919-8) ALT (test code = 41 U/L -55 1742-6) EGFR (test code = 52 mL/min/1.[address] [place] [address]-9) NOT ACCURATE CREATININE CLEARANCE IN PREDICTING GLOMERULAR FILTRATION RATE . ESTIMATED GFR I S NOT APPLICABLE FOR DIALYSIS PATIEN TS. TORRES (test code = TORRES) Accountant Cost ID - HUMBLE M Lab Interpretation Abnormal (test code = 30870-2) [facility] [id number] 06:49:00 Test Item Value Reference Range Interpretation Comments Protein, Total (test 6.8 See_Comment [Autom ated code = 2885-2) message] The system which generated this result transmit lane reference range : 6.0 - 8.3 gm/dL . The reference range was not u sed to interpret th is result as normal/abnormal . Albumin (test code = 3.5 g/dL 3.5-5 63999-8) Alkaline Phosphatase 44 U/L 40-150 (test code = 6768-6) Total Bilirubin (test 0.3 mg/dL 0.2-1.2 code = 1974-2) Sodium (test code = 139 meq/L 181-801 8103-2) Potassium (test code 3.8 meq/L 3.5-5.1 = 2823-3) Chloride (test code = 104 meq/L 98-107 2075-0) CO2 (test code = 27 meq/L 22-29 2028-9) BUN (test code = 12 mg/dL 7-21 3094-0) Creatinine (test code 1.05 mg/dL 0.57-1.25 = 2160-0) Glucose (test code = 79 mg/dL 70-105 2345-7) Calcium (test code = 8.4 mg/dL 8.4-10.2 79031-8) AST (test code = 49 U/L 5-34 H 1920-8) ALT (test code = 41 U/L 6-55 1742-6) EGFR (test code = 52 mL/min/1.[address] [place] [address]-2) NOT ACCURATE CREATININE CLEARANCE IN PREDICTING GLOMERULAR FILTRATION RATE . ESTIMATED GFR I S NOT APPLICABLE FOR DIALYSIS PATIEN TS. MACDONALD (test code = TORRES) Accountant Cost ID - HUMBLE M Lab Interpretation Abnormal (test code = 63037-2) [facility] HospitalCOMPREHENSIVE METABOLIC [id number] 06:49:00 Test Item Value Reference Range Interpretation [...] S NOT APPLICABLE FOR DIALYSIS PATIEN TS. Accountant Cost ID - HUMBLE MPOCT-GLUCOSE [id number] 16:54:00 Test Item Value Reference Range Interpretation Comments POC-GLUCOSE METER 171 mg/dL 70-110 H : TESTED A T [facility] 6720 (BEAKER) (test code = [place], 1538) [address]: Accountant Cost/Techni aldo ID = [id number] for ALBINO GONZALEZ Hemoglobin [id number] 15:22:00 Test Item Value Reference Range Interpretation Comments Hemoglobin A1C (test code = 4548-4) 6.2 % 4.3-6.1 H Lab Interpretation (test code = Abnormal 78542-8) [facility] HospitalHemoglobin [id number] 15:22:00 Test Item Value Reference Range Interpretation Comments Hemoglobin A1C (test code = 4548-4) 6.2 % 4.3-6.1 H Lab Interpretation (test code = Abnormal 38753-6) [facility] HospitalHemoglobin [id number] 15:22:00 Test Item Value Reference Range Interpretation Comments Hemoglobin A1C (test code = 4548-4) 6.2 % 4.3-6.1 H Lab Interpretation (test code = Abnormal 76112-4) [facility] HospitalHemoglobin [id number] 15:22:00 Test Item Value Reference Range Interpretation Comments Hemoglobin A1C (test code = 4548-4) 6.2 % 4.3-6.1 H Lab Interpretation (test code = Abnormal 11044-0) [facility] HospitalHEMOGLOBIN [id number] 15:22:00 Test Item Value Reference Range Interpretation Comments HEMOGLOBIN A1C (BEAKER) (test code = 6.2 % 4.3-6.1 H 368) POCT-GLUCOSE [id number] 12:56:00 Test Item Value Reference Range Interpretation Comments POC-GLUCOSE METER 93 mg/dL 70-110 : Notified RN/MD: TESTED (BEAKER) (test code = AT [facility] [address] [facility] 1538) [facility], 770 30: Accountant Cost/Techni aldo ID = [id number] for [facility] Arely gorman [place], [id number] 12:02:00Reason for exam:->[facility] : 1950 Sex: FFluoroscopic unit utilized for a procedure performed in the OR. No interpretation was requested. Refer to the operative report for findings. Refer to PACS for patient radiation dose information.[facility] Endoscopic Retrograde Vbjehcpkhlpcjhjxzuxhhdqv7654-40-27 12:02:00Interface, External Ris In - 03/10/2021 12:18 PM CDTFluoroscopic unit utilized for a procedure performed in the OR. No interpretation was requested. Refer to the operative report for findings. Referto PACS for patient radiation dose information.[facility] Endoscopic Retrograde Mnmnbvyfnitrwhtrprubpocs3996-07-30 12:02:00Interface, External Ris In 03/10/2021 12:18 PM CDTFluoroscopic unit utilized for a procedure performed in the OR. No interpretation was requested. Refer to the operative report for findings. Referto PACS for patient radiation dose information.[facility] Endoscopic Retrograde Okrblszfwjicviafgoraqpvd3783-94-77 12:02:00Interface, External Ris In 03/10/2021 12:18 PM CDTFluoroscopic unit utilized for a procedure performed in the OR. No interpretation was requested. Refer to the operative report for findings. Referto PACS for patient radiation dose information.[facility] Endoscopic Retrograde Owprbpkvokdaijevfoajquaw3587-28-01 12:02:00Interface, External Ris In 03/10/2021 12:18 PM CDTFluoroscopic unit utilized for a procedure performed in the OR. No interpretation was requested. Refer to the operative report for findings. Referto PACS for patient radiation dose information.[facility] HospitalPOCT-GLUCOSE [id number] 09:27:00 Test Item Value Reference Range Interpretation Comments POC-GLUCOSE METER 74 mg/dL 70-110 : TESTED A T [facility] 6720 ([facility]) (test code = [place] [facility], 1538) [address]: Accountant Cost/Techni aldo ID = [id number] for ALBINO ROSS COMPREHENSIVE METABOLIC [id number] 05:49:00 Test Item Value Reference Range Interpretation Comments TOTAL PROTEIN 6.8 gm/dL 6.0-8.3 ([facility]) (test code = 770) ALBUMIN ([facility]) 3.5 g/dL 3.5-5.0 (test code = 1145) [...] S NOT APPLICABLE FOR DIALYSIS PATIEN TS. Accountant Cost ID - [facility] (Hemogram only)2021-03-10 05:10:00 Test Item Value Reference Range Interpretation Comments WBC (test code = 6690-2) 9.1 See_Comment [A utomated message] The system [employer] generated this result transmitted ref erence range: 3.5 - 10 .5 K/L. The refe rence range was not u sed to interpret this result as normal/abnor mal. RBC (test code = 789-8) 3.57 See_Comment L [Au tomated message] The system [employer] generated this result transmitted ref erence range: 3.93 - 5 .22 M/L. The refe rence range was not u sed to interpret this result as normal/abnor mal. MCHC (test code = 786-4) 30.9 See_Comment L [A utomated message] The system [employer] generated this result transmitted ref erence range: [...] See_Comment [Aut omated message] 777-3) The system [employer] generated this result transmitted ref erence range: 150 - 45 0 K/CU MM. The referen ce range was not u sed to interpret this result as normal/abnor mal. MPV (test code = 9.3 fL 9.4-12.3 L 20587-6) nRBC (test code = 413) 0 See_Comment [Aut omated message] The system [employer] generated this result transmitted ref erence range: 0 - 0 /1 00 WBC. The refere nce range was not u sed to interpret this result as normal/abnor mal. Lab Interpretation (test Abnormal code = 88487-6) [facility] (Hemogram only)2021-03-10 05:10:00 Test Item Value Reference Range Interpretation Comments WBC (test code = 6690-2) 9.1 See_Comment [A utomated message] The system [employer] generated this result transmitted ref erence range: 3.5 - 10 .5 K/L. The refe rence range was not u sed to interpret this result as normal/abnor mal. RBC (test code = 789-8) 3.57 See_Comment L [Au tomated message] The system [employer] generated this result transmitted ref erence range: 3.93 - 5 .22 M/L. The refe rence range was not u sed to interpret this result as normal/abnor mal. MCHC (test code = 786-4) 30.9 See_Comment L [A utomated message] The system [employer] generated this result transmitted ref erence range: [...] See_Comment [Aut omated message] 777-3) The system [employer] generated this result transmitted ref erence range: 150 - 45 0 K/CU MM. The referen ce range was not u sed to interpret this result as normal/abnor mal. MPV (test code = 9.3 fL 9.4-12.3 L 12160-7) nRBC (test code = 413) 0 See_Comment [Aut omated message] The system [employer] generated this result transmitted ref erence range: 0 - 0 /1 00 WBC. The refere nce range was not u sed to interpret this result as normal/abnor mal. Lab Interpretation (test Abnormal code = 51367-5) [facility] (Hemogram only)2021-03-10 05:10:00 Test Item Value Reference Range Interpretation Comments WBC (test code = 6690-2) 9.1 See_Comment [A utomated message] The system [employer] generated this result transmitted ref erence range: 3.5 - 10 .5 K/L. The refe rence range was not u sed to interpret this result as normal/abnor mal. RBC (test code = 789-8) 3.57 See_Comment L [Au tomated message] The system [employer] generated this result transmitted ref erence range: 3.93 - 5 .22 M/L. The refe rence range was not u sed to interpret this result as normal/abnor mal. MCHC (test code = 786-4) 30.9 See_Comment L [A utomated message] The system [employer] generated this result transmitted ref erence range: [...] See_Comment [Aut omated message] 777-3) The system [employer] generated this result transmitted ref erence range: 150 - 45 0 K/CU MM. The referen ce range was not u sed to interpret this result as normal/abnor mal. MPV (test code = 9.3 fL 9.4-12.3 L 83930-0) nRBC (test code = 413) 0 See_Comment [Aut omated message] The system [employer] generated this result transmitted ref erence range: 0 - 0 /1 00 WBC. The refere nce range was not u sed to interpret this result as normal/abnor mal. Lab Interpretation (test Abnormal code = 09138-5) [facility] 05:10:00 Test Item Value Reference Range Interpretation Comments WBC (test code = 6690-2) 9.1 See_Comment [A utomated message] The system [employer] generated this result transmitted ref erence range: 3.5 - 10 .5 K/L. The refe rence range was not u sed to interpret this result as normal/abnor mal. RBC (test code = 789-8) 3.57 See_Comment L [Au tomated message] The system [employer] generated this result transmitted ref erence range: 3.93 - 5 .22 M/L. The refe rence range was not u sed to interpret this result as normal/abnor mal. MCHC (test code = 786-4) 30.9 See_Comment L [A utomated message] The system [employer] generated this result transmitted ref erence range: [...] See_Comment [Aut omated message] 777-3) The system [employer] generated this result transmitted ref erence range: 150 - 45 0 K/CU MM. The referen ce range was not u sed to interpret this result as normal/abnor mal. MPV (test code = 9.3 fL 9.4-12.3 L 66817-0) nRBC (test code = 413) 0 See_Comment [Aut omated message] The system [employer] generated this result transmitted ref erence range: 0 - 0 /1 00 WBC. The refere nce range was not u sed to interpret this result as normal/abnor mal. Lab Interpretation (test Abnormal code = 17218-1) [facility] (HEMOGRAM ONLY)2021-03-10 05:10:00 Test [...] 0-0 (BEAKER) (test code = 413) POCT-GLUCOSE [id number] 00:05:00 Test Item Value Reference Range Interpretation Comments POC-GLUCOSE METER 83 mg/dL 70-110 : TESTED A T [facility] 6720 (BEAKER) (test code = FORTUNATO Kaba [facility], 1538) [address]: Accountant Cost/Techni aldo ID = [id number] for BRENDA VENCES SARS-COV2/RT-PCR ([facility])2021-03-09 23:58:00 Test Item Value Reference Range Interpretation Comments SARS-COV2/RT-PCR (test Negative Not Detected, Negative, code = 4336509) See external report for linked test SARS-COV-[address] [facility] SHIV (test code = 8564155) Negative result for this test determines that [...] 564(g) of the Act.Fact Sheet for Healthcare Providers:https://www.[employer]/sites/default/files/product/documents/Fact_Shee g_AM_Qeyenhbru_Wvdn_YURV-OaO-7.pdfFact Sheet for Healthcare Patients:https://www.[employer]/sites/default/files/product/ documents/Uxcw_Dxhtl_Eldpacpz_Saey_UQHT-YpH-6.pdfPerforming Laboratory:[facility], [place] [address]VUKH-SADMSIU METER 2021-03-09 17:34:00 Test Item Value Reference Range Interpretation Comments POC-GLUCOSE METER 97 mg/dL 70-110 : TESTED A T [facility] 6720 (LIA) (test code = FORTUNATO Kaba [facility], 1538) 12350: Accountant Cost/Techni aldo ID = [id number] for ALBINO ROSS MR, ABDOMEN, [id number] 17:11:00Unlisted Reason for Exam - Click Yes and Enter Reason Below->NoPatient with hyperdense material seen in distal CBD on CTA [facility] : 1950 Sex: FFINAL [...] MDReport Verified Date/Time: 03/09/2021 17:11:18 Reading Location: [address] Transitional Reading Room MR abdomen without IV contrast [id number] 17:11:00 Interface, External Ris In - 03/09/2021 [...] Alyeport Verified Date/Time: 03/09/2021 17:11:18 Reading Location: [address] [facility] [id number] 17:11:00 Interface, External Ris In - 03/09/2021 [...] Alyeport Verified Date/Time: 03/09/2021 17:11:18 Reading Location: [place] [address] [facility]itional [facility] [id number] 17:11:00 Interface, External Ris In - 03/09/2021 [...] 12/29/2005 but appears chronic Signed: Ashely Aly [facility] Verified Date/Time: 03/09/2021 17:11:18 Reading Location: [facility] B1 C013T Transitional [facility] [id number] 17:11:00 Interface, External Ris In - 03/09/2021 [...] 12/29/2005 but appears chronic Signed: Ashely Aly [facility] Verified Date/Time: 03/09/2021 17:11:18 Reading Location: [address] Transitional [facility] [id number] 12:41:00 Test Item Value Reference Range Interpretation Comments POC-GLUCOSE METER 92 mg/dL 70-110 : TESTED A T [facility] 6720 (BEAKER) (test code = JALENCHANA Kaba [facility], 1538) 28491: Accountant Cost/Techni aldo ID = [id number] for TEZE NO, ALBINO Urinalysis w/Microscopic + Reflex to [id number] 11:21:00 Test Item Value Reference Range Interpretation Comments Color, UA (test code Light Yellow = 5778-6) Clarity, UA (test Clear code = 5767-9) Specific Rocheport, UA 1.033 1.001-1.035 (test code = 5811-5) pH, UA (test code = 5.5 5.0-8.0 5803-2) Protein, UA (test Negative Negative code = 26454-5) Glucose, UA (test Negative Negative code = 365) Ketones, UA (test Negative Negative code = 2514-8) Bilirubin, UA (test Negative Negative code = 57393-4) Blood, UA (test code Trace Negative A = 02749-3) Nitrite, UA (test Negative Negative code = 5802-4) Leukocytes, UA (test Negative Negative code = 5799-2) Urobilinogen, UA 0.2 mg/dL 0.2-1 (test code = 95164-0) RBC, UA (test code = 2 See_Comment [Autom ated 55055-6) message] The system which generated this result [...] Bacteria, UA (test None Seen code = 31385-5) Mucus (test code = Rare 8247-9) Squam Epithel, UA 1 See_Comment [Automate d (test code = 21505-0) messag e] The system which generated this result transmit lane reference range : /HPF. The reference range was not used to interpret this result as normal/abnormal . Crystals, Urine (test None Seen code = 45107-8) Specimen Source (test code = 2795) TORRES (test code = TORRES) Accountant Cost ID - [auto]Accountant Cost ID - tech Lab Interpretation Abnormal (test code = 38967-2) [facility] Reflex to Culture 2021-03-09 11:21:00 Test Item Value Reference Range Interpretation Comments Color, UA (test code Light Yellow = 5778-6) Clarity, UA (test Clear code = 5767-9) Specific Roche[place], UA 1.033 1.001-1.035 (test code = 5811-5) pH, UA (test code = 5.5 5.0-8.0 5803-2) Protein, UA (test Negative Negative code = 87778-3) Glucose, UA (test Negative Negative code = 365) Ketones, UA (test Negative Negative code = 2514-8) Bilirubin, UA (test Negative Negative code = 73694-1) Blood, UA (test code Trace Negative A = 70979-2) Nitrite, UA (test Negative Negative code = 5802-4) Leukocytes, UA (test Negative Negative code = 5799-2) Urobilinogen, UA 0.2 mg/dL 0.2-1 (test code = 27941-1) RBC, UA (test code = 2 See_Comment [Autom ated 63207-5) message] The system which generated this result [...] Bacteria, UA (test None Seen code = 59706-2) Mucus (test code = Rare 8247-9) Squam Epithel, UA 1 See_Comment [Automate d (test code = 69668-7) messag e] The system which generated this result transmit lane reference range : /HPF. The reference range was not used to interpret this result as normal/abnormal . Crystals, Urine (test None Seen code = 57739-5) Specimen Source (test code = 2795) TORRES (test code = TORRES) Accountant Cost ID - [auto]Accountant Cost ID - tech Lab Interpretation Abnormal (test code = 94124-6) [facility] Reflex to Culture 2021-03-09 11:21:00 Test Item Value Reference Range Interpretation Comments Color, UA (test code Light Yellow = 5778-6) Clarity, UA (test Clear code = 5767-9) Specific Roche[place], UA 1.033 1.001-1.035 (test code = 5811-5) pH, UA (test code = 5.5 5.0-8.0 5803-2) Protein, UA (test Negative Negative code = 34725-4) Glucose, UA (test Negative Negative code = 365) Ketones, UA (test Negative Negative code = 2514-8) Bilirubin, UA (test Negative Negative code = 87452-9) Blood, UA (test code Trace Negative A = 80239-5) Nitrite, UA (test Negative Negative code = 5802-4) Leukocytes, UA (test Negative Negative code = 5799-2) Urobilinogen, UA 0.2 mg/dL 0.2-1 (test code = 72494-8) RBC, UA (test code = 2 See_Comment [Autom ated 05852-3) message] The system which generated this result [...] Bacteria, UA (test None Seen code = 73443-2) Mucus (test code = Rare 8247-9) Squam Epithel, UA 1 See_Comment [Automate d (test code = 20289-3) messag e] The system which generated this result transmit lane reference range : /HPF. The reference range was not used to interpret this result as normal/abnormal . Crystals, Urine (test None Seen code = 19173-2) Specimen Source (test code = 2795) TORRES (test code = TORRES) Accountant Cost ID - [auto]Accountant Cost ID - tech Lab Interpretation Abnormal (test code = 20072-7) [facility] + Reflex to Culture 2021-03-09 11:21:00 Test Item Value Reference Range Interpretation Comments Color, UA (test code Light Yellow = 5778-6) Clarity, UA (test Clear code = 5767-9) Specific Roche[place], UA 1.033 1.001-1.035 (test code = 5811-5) pH, UA (test code = 5.5 5.0-8.0 5803-2) Protein, UA (test Negative Negative code = 77102-0) Glucose, UA (test Negative Negative code = 365) Ketones, UA (test Negative Negative code = 2514-8) Bilirubin, UA (test Negative Negative code = 80344-8) Blood, UA (test code Trace Negative A = 69857-4) Nitrite, UA (test Negative Negative code = 5802-4) Leukocytes, UA (test Negative Negative code = 5799-2) Urobilinogen, UA 0.2 mg/dL 0.2-1 (test code = 28221-2) RBC, UA (test code = 2 See_Comment [Autom ated 67382-9) message] The system which generated this result [...] Bacteria, UA (test None Seen code = 62030-3) Mucus (test code = Rare 8247-9) Squam Epithel, UA 1 See_Comment [Automate d (test code = 26564-2) messag e] The system which generated this result transmit lane reference range : /HPF. The reference range was not used to interpret this result as normal/abnormal . Crystals, Urine (test None Seen code = 18965-8) Specimen Source (test code = 2795) TORRES (test code = TORRES) Accountant Cost ID - [auto]Accountant Cost ID - tech Lab Interpretation Abnormal (test code = 19521-3) [facility]LEX URINE [id number] 11:21:00 Test Item Value Reference Range Interpretation [...] = 1521) SOURCE(BEAKER) (test code = 2795) Accountant Cost ID - [auto]Accountant Cost ID - techHEMOGLOBIN [id number] 10:22:00 Test Item Value Reference Range Interpretation Comments HEMOGLOBIN A1C (BEAKER) (test code = 6.1 % 4.3-6.1 368) [id number] 06:48:00 Test Item Value Reference Range Interpretation Comments Magnesium (test code = 2.1 mg/dL 1.6-2.6 45284-1) TORRES (test code = TORRES) Accountant Cost ID - ELVIN W Lab Interpretation (test Normal code = 61401-0) [facility]2021-[facility] 06:48:00 Test Item Value Reference Range Interpretation Comments Magnesium (test code = 2.1 mg/dL 1.6-2.6 52854-1) TORRES (test code = TORRES) Accountant Cost ID - ELVIN W Lab Interpretation (test Normal code = 82236-6) [facility]21-[facility] 06:48:00 Test Item Value Reference Range Interpretation Comments Magnesium (test code = 2.1 mg/dL 1.6-2.6 73395-7) TORRES (test code = TORRES) Accountant Cost ID - ELVIN W Lab Interpretation (test Normal code = 68640-2) [facility]2021-[facility]-28 06:48:00 Test Item Value Reference Range Interpretation Comments Magnesium (test code = 2.1 mg/dL 1.6-2.6 42426-0) TORRES (test code = TORRES) Accountant Cost ID - ELVIN W Lab Interpretation (test Normal code = 80966-7) [facility] [id number] 06:48:00 Test Item Value Reference Range Interpretation [...] S NOT APPLICABLE FOR DIALYSIS PATIEN TS. Accountant Cost ID - ELVIN [id number] 06:48:00 Test Item Value Reference Range Interpretation Comments MAGNESIUM (BEAKER) (test code = 2.1 mg/dL 1.6-2.6 627) Accountant Cost ID - ELVIN WHEPATIC FUNCTION [id number] 06:48:00 Test Item Value Reference Range Interpretation [...] (test code = 30 U/L 6-55 347) Accountant Cost ID - ELVIN WPROTHROMBIN TIME/[id number] 06:32:00 Test Item Value Reference Range Interpretation Comments PROTIME (BEAKER) 12.9 seconds 11.9-14.2 (test code = 759) INR (BEAKER) (test 0.99 See_Comment [Automat ed message] code = 370) The system [employer] generated this result transmitted ref erence range: [...] code = 2801) MRI Brain wo contrast [id number] 16:25:00Patient Name: RIYA LUNADOB: 1950. Age: 67 years. Gender: Female.MR: [id number]. Location: [facility]. Provider: Hollie Osorio MD.EXAM: Brain wo [...] intracranial abnormality. Mild chronicmicroangiopathic ischemic gliosis. SL: [id number]--Gnff by: Finesse Dias MDDictated Date/time: 0 02/08/18 17:31Electronically Signed by: Finesse Dias MD 02/08/1817:40FINALREPORTUnAlta View Hospital PhysiciansSC[facility] Brain w/wo contrast [id number] 13:39:00 Test Item Value Reference Range Interpretation Comments Brain w/wo contrast MRI Cancel Reason: Exam (test code = Brain w/wo Replaced contrast MRI) [facility]"
[2021-11-03 19:07] LABS: Urine Blood Trace-intact (Negative); Urine Glucose Negative (Negative); Urine Protein Negative (Negative); Urine Specific Gravity <=1.005 (1.005-1.030)
[2021-11-03 21:01] LABS: BUN Blood Urea Nitrogen 30 mg/dL (7-18); Bicarbonate 27 mmol/L (21-32); Glucose Level 108 mg/dL (74-106); Lipase 168 U/L (73-393)
[2021-11-03 21:02] LABS: Potassium 4.5 mmol/L (3.5-5.1)
[2021-11-03 21:08] LABS: ALT/SGPT 22 U/L (12-78); Albumin 3.5 g/dL (3.4-5.0); Alkaline Phosphatase 84 U/L (45-117); Bilirubin Total 0.3 mg/dL (0.2-1.0); Protein, Total 8.1 g/dL (6.4-8.2)
[2021-11-03 21:27] LABS: AST/SGOT 30 U/L (15-37); Bilirubin Direct < 0.1 mg/dL (0-0.2)
[2021-11-03] MEDS ORDERED: HYDROMORPHONE HCL 1 MG/ML INJ ONE (21:45)
[2021-11-03] MEDS ORDERED: NA CHLORIDE 0.9% 500 ML ONE (21:45)
[2021-11-03 21:51] LABS: Absolute Lymphocytes (CBC) 1.8 K/uL (0.7-4.9); Hematocrit 34.7 % (36.0-45.0); Lymphocytes % 11.7 % (15.3-44.8); MPV 6.3 fL (7.6-11.3); RBC Red Blood Cell Count 3.93 M/uL (3.86-4.86)
--- NOTE | 2021-11-03 22:14 | RAD REPORT ---
EXAM DESCRIPTION: CT - Abdomen Pelvis W Contrast - 11/03/2021 9:53 pm CLINICAL HISTORY: Abd pain;Constipation COMPARISON: Abdomen Pelvis W Contrast dated 08/23/2021 TECHNIQUE: Biphasic, helical CT imaging of the abdomen and pelvis was performed following 100 ml non -ionic IV contrast. Oral contrast was given. All CT scans are performed using dose optimization technique as appropriate and may include automated exposure control or mA/KV adjustment according to patient size. FINDINGS: No suspicious findings in the lung bases. The liver, spleen, and pancreas show no suspicious findings. Gallbladder is absent. Biliary tree is p rominent and there is pneumobilia present. This is a stable presentation August 23 imaging. Symmetric renal function is seen with no hydronephrosis or suspicious renal mass. No pyelonephritis o r acute parenchymal process. Urinary bladder is distended. No bladder wall thickening or mass. No hammad dder calculi seen. No adrenal abnormalities. No gastric dilatation gastric wall thickening. Oral CT contrast has reached the left-side of the colo n. No dilated large or small bowel seen. Appendix not clearly defined. Appendicitis is not suspected. Bowel detail is significantly limited due to motion degradation. No free air or pneumatosis. No abn ormal free fluid. No hernia, mass or bulky lymphadenopathy. No suspicious bony findings. IMPRESSION: Contrast enhanced CT abdomen and pelvis showing no acute or emergent finding. Above detailed findings are not clearly different from August 23 imaging. Exam has limitation due to the extent of motion.
[2021-11-03 23:37] LABS: Urine Bacteria <20 /HPF (<20); Urine RBC <5 /HPF (NONE SEEN)
--- NOTE | 2021-11-03 23:53 | ER ---
Nurse's Notes [facility] Name[facility] Alberto Bot[facility] Age: 71 yrs Sex: Female : 1950 Arrival Date: 11/03/2021 Time: 18:44 Bed 4 Private MD: Alis Jamison H Diagnosis: Chronic pain syndrome-Abdominal pain Presentation: 11/03 18:48 Chief complaint: Patient's son or daughter states: the patient has continued abdominal ap3 pain that is not eased with prescription pain medication. Pain is located on the left side of the abdomen. denies N/V/D. Coronavirus screen: At this time, the client does not indicate any symptoms associated with coronavirus-19. Ebola Screen: No symptoms or risks identified at this time. Initial Sepsis Screen: Does the patient meet any 2 criteria? No. Patient's initial sepsis screen is negative. Does the patient have a suspected source of infection? No. Patient's initial sepsis screen is negative. Risk Assessment: Do you want to hurt yourself or someone else? Patient reports no desire to harm self or others. Onset of symptoms was November 02, 2021. 18:48 Method Of Arrival: Ambulatory ap3 18:48 Acuity: ART 3 ap3 Triage Assessment: 18:51 General: Appears uncomfortable, Behavior is calm, cooperative. Pain: Complains of pain ap3 in abdomen Pain currently is 7 out of 10 on a pain scale. Pain began gradually, 1 day ago. Neuro: Level of Consciousness is awake, alert, obeys commands, patient has son with her for translation. Cardiovascular: Patient's skin is warm and dry. Respiratory: Airway is patent Respiratory effort is even, unlabored, Respiratory pattern is regular, symmetrical. GI: Reports lower abdominal pain, upper abdominal pain, Patient currently denies diarrhea, nausea, vomiting. Historical: - PMHx: 18:50 Anxiety; Chronic pain; Diabetes - NIDDM; Hepatitis; Hypertension; Osteoporosis; ap3 Pancreatitis; - PSHx: 18:50 Cholecystectomy; ap3 - Immunization history:: Client reports receiving the 2nd dose of the Covid vaccine, Pneumococcal vaccine is not up to date, Flu vaccine is not up to date. - Social history:: Smoking status: Patient denies any tobacco usage or history of. Screenin:52 Abuse screen: Denies threats or abuse. Tuberculosis screening: No symptoms or risk ap3 factors identified. 19:24 Fall Risk. st1 11/04 00:04 Nutritional screening: No deficits noted. st1 Assessment: 11/03 20:00 GI: Abdomen is tender to palpation Abd is rigid X [address] st1 21:47 Reassessment: pt to CT scan via stretcher accompanied by plant health care technician. bb 11/04 00:03 Reassessment: the patient tolerated PO challenge. st1 00:04 GI: Bowel sounds present X 4 quads. hyperactive in right upper quadrant, left upper st1 quadrant, right lower quadrant and left lower quadrant. Vital Signs: 11/03 18:48 BP 142 / 93; Pulse 95; Resp 17; Temp 98.1; Pulse Ox 98% on R/A; Weight 58.06 kg; Height ap3 5 ft. 4 in. (162.56 cm); Pain 7/10; 19:00 BP 146 / 76; Pulse 92; Resp 16; Pulse Ox 98% on R/A; st1 20:00 BP 152 / 78; Pulse 79; Resp 20; Pulse Ox 99% on R/A; st1 23:00 BP 140 / 70; Pulse 65; Resp 16; Pulse Ox 100% on R/A; st1 23:00 BP 138 / 60; Pulse 60; Resp 18; Pulse Ox 100% on R/A; st1 18:48 Body Mass Index 21.97 (58.06 kg, 162.56 cm) ap3 ED Course: 18:44 Patient arrived in ED. as 18:44 Alis Jamison DO is Private Physician. as 18:50 Triage completed. ap3 18:52 Arm band placed on left wrist. ap3 19:00 Patient has correct armband on for positive identification. Bed in low position. Call st1 light in reach. Side rails up X2. Pulse ox on. NIBP on. 19:04 Fredrick Nettles MD is Attending Physician. 7 19:32 Ruth Rodriguez, YOSVANY is Primary Nurse. 5 19:32 Served as a archeologist during rectal exam. sm5 20:15 Inserted saline lock: 20 gauge in left upper arm, using aseptic technique. st1 20:15 Basic Metabolic Panel Sent. st1 20:15 CBC with Diff Sent. st1 20:15 Hepatic Function Sent. st1 20:15 Lipase Sent. st1 21:39 Lab(s) recollected, by me, sent to lab. Inserted saline lock: 22 gauge in right bb forearm, using aseptic technique. Blood collected. 21:53 CT Abd/Pelvis - PO and IV Contrast In Process Unspecified. EDMS 23:20 Urine Microscopic Only Sent. 5 11/04 00:05 IV discontinued, intact, bleeding controlled, No redness/swelling at site. Pressure st1 dressing applied. Administered Medications: 11/03 21:47 Drug: NS 0.9% 500 ml Route: IV; Rate: bolus; Site: right forearm; bb 21:47 Drug: Dilaudid (HYDROmorphone) 1 mg {Note: RASS 0.} Route: IVP; Site: right forearm; bb Outcome: 23:52 Discharge ordered by . Kamila 02 00:05 Discharged to home ambulatory, with family. st1 Condition: good Discharge instructions given to patient, family, Instructed on discharge instructions, follow up and referral plans. Demonstrated understanding of instructions, follow-up care. 00:07 Patient left the ED. st1 Signatures: Dispatcher [employer] EDMS Dolly Cerda Brenda, RN RN bb Ami Steve RN RN ap3 Fredrick Nettles MD MD [facility] Ruth Rodriguez RN RN [facility] Tina Felix RN RN st1
--- NOTE | 2021-11-03 23:53 | EDPHYS ---
Physician Documentation [facility] Name: Alberto Botello Age: 71 yrs Sex: Female : 1950 Arrival Date: 11/03/2021 Time: 18:44 Bed 4 Private MD: Alis Jamison H ED Physician Fredrick Nettles HPI: 11/03 19:43 This 71 yrs old Female presents to ER via Ambulatory with complaints of Abdominal Pain. mh7 19:43 The patient presents with abdominal pain in the left upper quadrant, in the left lower mh7 quadrant. Onset: The symptoms/episode began/occurred this morning, today. The symptoms do not radiate. Associated signs and symptoms: Pertinent positives: constipation, Pertinent negatives: nausea, vomiting, and diarrhea, anorexia, blood in stools, chest pain, diarrhea, dysuria, fever, headache, hematuria, nausea, palpitations, shortness of breath, vaginal discharge, vomiting, vomiting blood. The symptoms are described as intermittent, vague, waxing/waning. Modifying factors: The symptoms are alleviated by nothing, the symptoms are aggravated by nothing. Severity of pain: At its worst the pain was moderate today, in the emergency department the pain is unchanged. The patient has experienced similar episodes in the past, multiple times. Historical: - PMHx: 18:50 Anxiety; Chronic pain; Diabetes - NIDDM; Hepatitis; Hypertension; Osteoporosis; ap3 Pancreatitis; - PSHx: 18:50 Cholecystectomy; ap3 - Immunization history:: Client reports receiving the 2nd dose of the Covid vaccine, Pneumococcal vaccine is not up to date, Flu vaccine is not up to date. - Social history:: Smoking status: Patient denies any tobacco usage or history of. ROS: 19:43 Constitutional: Negative for fever, chills, and weight loss, Eyes: Negative for injury, mh7 pain, redness, and discharge, ENT: Negative for injury, pain, and discharge, Neck: Negative for injury, pain, and swelling, Cardiovascular: Negative for chest pain, palpitations, and edema, Respiratory: Negative for shortness of breath, cough, wheezing, and pleuritic chest pain, Back: Negative for injury and pain, : Negative for injury, bleeding, discharge, and swelling, MS/Extremity: Negative for injury and deformity, Skin: Negative for injury, rash, and discoloration, Neuro: Negative for headache, weakness, numbness, tingling, and seizure, Psych: Negative for depression, anxiety, suicide ideation, homicidal ideation, and hallucinations, Allergy/Immunology: Negative for hives, rash, and allergies, Endocrine: Negative for neck swelling, polydipsia, polyuria, polyphagia, and marked weight changes, Hematologic/Lymphatic: Negative for swollen nodes, abnormal bleeding, and unusual bruising. Exam: 19:43 Head/Face: Normocephalic, atraumatic. Eyes: Pupils equal round and reactive to light, mh7 extra-ocular motions intact. Lids and lashes normal. Conjunctiva and sclera are non-icteric and not injected. Cornea within normal limits. Periorbital areas with no swelling, redness, or edema. Neck: Trachea midline, no thyromegaly or masses palpated, and no cervical lymphadenopathy. Supple, full range of motion without nuchal rigidity, or vertebral point tenderness. No Meningismus. Chest/axilla: Normal chest wall appearance and motion. Nontender with no deformity. No lesions are appreciated. Cardiovascular: Regular rate and rhythm with a normal S1 and S2. No gallops, murmurs, or rubs. Normal PMI, no JVD. No pulse deficits. Respiratory: Lungs have equal breath sounds bilaterally, clear to auscultation and percussion. No rales, rhonchi or wheezes noted. No increased work of breathing, no retractions or nasal flaring. Back: No spinal tenderness. No costovertebral tenderness. Full range of motion. Skin: Warm, dry with normal turgor. Normal color with no rashes, no lesions, and no evidence of cellulitis. MS/ Extremity: Pulses equal, no cyanosis. Neurovascular intact. Full, normal range of motion. Neuro: Awake and alert, GCS 15, oriented to person, place, time, and situation. Cranial nerves II-XII grossly intact. Motor strength 5/5 in all extremities. Sensory grossly intact. Cerebellar exam normal. Normal gait. Psych: Awake, alert, with orientation to person, place and time. Behavior, mood, and affect are within normal limits. 19:43 Constitutional: The patient appears in no acute distress, alert, awake, uncomfortable. 19:43 Abdomen/GI: Inspection: obese Bowel sounds: normal, in all quadrants, Palpation: mh7 moderate abdominal tenderness, in the left upper quadrant and left lower quadrant, mass, is not appreciated, rebound tenderness, is not appreciated, voluntary guarding, is not appreciated, involuntary guarding, is not appreciated, no appreciated organomegaly, Rectal exam: rectal tone normal, Stool: brown, guaiac negative, hemorrhoid(s), are not appreciated, mass, is not appreciated, swelling, is not appreciated, tenderness, is not appreciated, fecal impaction, is not appreciated, the exam is chaperoned by the nurse, Indicators: McBurney's point is not tender, Ledesma's sign is negative, Rovsing's sign is negative, Obturator sign is negative, Psoas sign is negative, Liver: no appreciated palpable abnormalities, Hernia: not appreciated. Vital Signs: 18:48 BP 142 / 93; Pulse 95; Resp 17; Temp 98.1; Pulse Ox 98% on R/A; Weight 58.06 kg; Height ap3 5 ft. 4 in. (162.56 cm); Pain 7/10; 19:00 BP 146 / 76; Pulse 92; Resp 16; Pulse Ox 98% on R/A; st1 20:00 BP 152 / 78; Pulse 79; Resp 20; Pulse Ox 99% on R/A; st1 23:00 BP 140 / 70; Pulse 65; Resp 16; Pulse Ox 100% on R/A; st1 23:00 BP 138 / 60; Pulse 60; Resp 18; Pulse Ox 100% on R/A; st1 18:48 Body Mass Index 21.97 (58.06 kg, 162.56 cm) ap3 MDM: 23:48 Differential diagnosis: AAA, bowel obstruction, diverticulitis, gastritis, mh7 gastroesophageal reflux disease, Mesenteric ischemia or infarction, non-specific abd pain, pancreatitis, Peptic Ulcer Disease, Perf. Duodenal Ulcer, Perf. Gastric Ulcer, Pyelonephritis, Ureterolithiasis, urinary tract infection. Data reviewed: vital signs, nurses notes, old medical records, lab test result(s), cardiac enzymes, CBC, electrolytes, urinalysis, EKG, radiologic studies, CT scan. Data interpreted: Pulse oximetry: on room air is 99 %. Interpretation: normal. Counseling: I had a detailed discussion with the patient and/or guardian regarding: the historical points, exam findings, and any diagnostic results supporting the discharge/admit diagnosis, the presence of at least one elevated blood pressure reading (>120/80) during this emergency department visit, lab results, radiology results, to return to the emergency department if symptoms worsen or persist or if there are any questions or concerns that arise at home. Response to treatment: the patient's symptoms have resolved after treatment, the patient's blood pressure is in an acceptable range, mental status has returned to baseline, the patient no longer shows bradycardia, the patient is not short of breath, the patient is not tachycardic, the patient's pain is gone, the patient's temperature has normalized, the patient is now symptom free. ED course: Well-appearing, no acute distress, vital signs stable, no focal neurological deficits. No abdominal pain, nausea, vomiting, or other complaints. Tolerating p.o. intake without difficulty. Discussed all test results and findings with the patient and her son. They request to be discharged in ED at this time and will follow up with a primary doctor. Advised to return to ED if worsening of symptoms or other urgent concerns.. 23:52 Patient medically screened. [facility] 11/03 19:07 Order name: Urine Dipstick-Ancillary; Complete Time: 19:35 [facility] 11/03 19:35 Order name: Basic Metabolic Panel; Complete Time: 21:58 [facility] 11/03 19:35 Order name: CBC with Diff; Complete Time: 22:06 [facility] 11/03 19:35 Order name: Hepatic Function; Complete Time: 21:58 [facility] 11/03 19:35 Order name: Lipase; Complete Time: 21:58 [facility] 11/03 22:17 Order name: Urine Microscopic Only; Complete Time: 23:42 [facility] 11/03 19:35 Order name: IV Saline Lock; Complete Time: 20:15 [facility] 11/03 19:35 Order name: Labs collected and sent; Complete Time: 20:15 [facility] 11/03 19:35 Order name: Urine Dipstick-Ancillary (obtain specimen); Complete Time: 20:16 [facility] 11/03 19:36 Order name: CT Abd/Pelvis - PO and IV Contrast; Complete Time: 22:15 [facility] 11/03 19:36 Order name: EKG; Complete Time: 19:37 [facility] 11/03 19:36 Order name: EKG - Nurse/Tech; Complete Time: 21:13 7 11/03 20:27 Order name: Labs - recollect needed: lav top; Complete Time: 21:46 [facility]2 11/03 22:16 Order name: PO challenge; Complete Time: 23:20 [facility] Administered Medications: 21:47 Drug: NS 0.9% 500 ml Route: IV; Rate: bolus; Site: right forearm; bb 21:47 Drug: Dilaudid (HYDROmorphone) 1 mg {Note: RASS 0.} Route: IVP; Site: right forearm; bb Disposition Summary: 11/03/21 23:52 Discharge Ordered Location: Home [facility] Problem: chronic [facility] Symptoms: have improved [facility] Condition: Stable [facility] Diagnosis - Chronic pain syndrome - Abdominal pain [facility] Followup: [facility] - With: Private Physician - When: 1 - 2 days - Reason: Worsening of condition, Recheck today's complaints, Continuance of care, Re-evaluation by your physician Discharge Instructions: - Discharge Summary Sheet [facility] - Chronic Pain, Adult [facility] - Abdominal Pain, Adult, [id number] [facility] Forms: - Medication Reconciliation Form [facility] - Thank You Letter [facility] - Antibiotic Education [facility] - Prescription Opioid Use [facility] Signatures: Dispatcher [employer] Iza Padilla RN RN bb Prokisch, Amanda, RN RN 3 Babak Valencia 2 Fredrick Nettles MD MD [facility]
[2021-11-04 02:23] VITALS: TEMP 98.1
[2021-11-04 02:27] VITALS: BP 138/60; O2SAT 100
== END 2021-11-04 00:07 | disposition home or self-care (01) ==
LOC: ER 18:43
DX: G89.4 Chronic pain syndrome (principal)
CPT/HCPCS: 85025; 80048; 36415; 80076; 83690; 74177; 96374; 99284; Q9967; J1170; J7040; 81003; 81015

== ENCOUNTER 2021-12-24 13:37 | Emergency (ER) | payer OTHER ==
--- OUTSIDE RECORDS SUMMARY | 2021-12-24 13:46 | XMS REPORT | Continuity of Care Document ---
:1950 Author Organization [facility] t Address [address] [place] [address] Care Team Providers Name Role Phone ALEJANDRA, H Primary Care Physician Unavailable Maribel BURNETT Attending Clinician Unavailable MCKAY Attending Clinician Unavailable Attending Clinician Unavailable Singer JOYA Attending Clinician Roxie MAY Attending Clinician Amy Palencia MD [...] Expiration Date Brandy haywood MEDICARE A B [id number] 2021 00:00:00 [place]ICAID [place] [id number] MEDICARE PART A [id number] \\T\\ B - MEDICARE [facility]-MEDICAID - [id number] MEDICAID MEDICARE PART A [id number] 2003 \\T\\ B 00:00:00 [place] [id number] 2013 00:00:00 Problems Condition Condition Condition Status Onset Resolution Last Treating Co mments Source Name Details Category Date Date Treatment Clinician Date Common Common Disease Active [facility] bile duct bile duct 8-24 Luke s - calculus calculus 00:00: Medica l 00 Center Abdominal Abdominal Disease Active [facility] pain pain 6 [facility] - [facility] Closed Closed Disease Active Univers fracture fracture 03-18 ity of of first of first 00:00: [place] lumbar lumbar 00 [facility] vertebra vertebra Branch with with routine routine healing healing Hypertensi Hypertensi Disease Active C [facility] on on [facility] Diabetes Diabetes Disease Active [facility] t mellitus mellitus [facility] New onset New onset Problem [...] NO KNOWN Allergy Active [facility] NO KNOWN Drug Active Univers ALLERGIE Class ity of S [facility] [place] [facility] Family History Family Member Diagnosis Comments Start Date Stop Date Source Father Family history of Univers ity of [place] lung cancer Physicians Social History Social Habit Start Date Stop Date Quantity Comments Source Exposure to Not sure [facility] SARS-CoV-2 (event) Medica l Branch Tobacco use and 2021-05-07 2021-05-[address] [facility] - exposure 00:00:00 00:00:00 Medical Center Alcohol intake 2016-03-18 2016-03-18 0 /d [facility] 00:00:00 00:00:00 Medical Branch Sex [birth year] At [birth year] [facility] 00:00:00 00:00:00 Medical Branch Smoking Status Start Date Stop Date Source Never smoker [facility] Medications Ordered Filled Start Stop Current Ordering Indication Dosage Frequency Signature Comments Components Source Medication Medication Date Date Medication? Clinician (SIG) Name Name iopamidol 2020-09- No [id number] 100mL 100 mL, Univers (ISOVUE 09-23 Intravenou ity o f 370-500 mL) 17:55: 17:55 s, ONCE, 1 [place] injection 00 :00 dose, On Medica l 100 mL Tue [place] 07/24/21 at 1215, Routine ondansetron 2020-09- No 4mg 4 mg, Slow Univers (ZOFRAN 09-23 IV Push, ity of (PF)) 17:45: 16:38 ONCE, 1 [place] injection 4 00 :00 dose, On Medi josephine mg Tue [place] 07/24/21 at 1145, Routine morpHINE 2020-09 Yes 4mg 4 mg, Slow Uni vers injection 4 09-23 IV Push, ity of mg 16:30: Q4HPRN, [place] 24 Starting Medical on Tue [place] 07/24/21 at 1030, Until Discontinu ed, Routine, [...] MCG 10:59: mouth Medical capsule 53 daily. [place] alendronate Yes 70mg Take [address] (FOSAMAX) 8-26 by mouth [facility]ukes - 70 MG 10:59: every 7 Medical tablet 53 days Take Center in the morning with a full glass of water, on an empty stomach, and do not take anything else by mouth or lie down for the next 30 min. . HYDROcodone Yes 1{tbl} Q.[id number] Take [address] -acetaminop 8-26 [id number] tablet by Lukes - hen (NORCO 10:59: [...] next 30 min. . HYDROcodone Yes 1{tbl} Q.[id number] Take [address] -acetaminop 8-26 [id number] tablet by [facility]ukes - hen (NORCO 10:59: 3D mouth 3 Medi josephine 5-325) 53 (three) Center 5-325 mg times per tablet daily. ursodioL Yes 500mg QD Take [address] (ACTIGALL) 8-26 mg by Lukes - 500 MG 10:59: mouth Medical tablet 53 daily. [place] ALPRAZolam Yes 2mg Take 2 mg CH [...] MCG 10:59: mouth Medical capsule 53 daily. [place] alendronate Yes 70mg Take [address] (FOSAMAX) 8-26 by mouth Lukes - 70 MG 10:59: every 7 Medical tablet 53 days Take Center in the morning with a full glass of water, on an empty stomach, and do not take anything else by mouth or lie down for the next 30 min. . HYDROcodone Yes 1{tbl} Q.[id number] Take [address] -acetaminop 8-26 [id number] tablet by Lukes - hen (NORCO 10:59: 3D mouth 3 Medi josephine 5-325) 53 (three) Center 5-325 mg times per tablet daily. ursodioL Yes 500mg QD Take [address] (ACTIGALL) 8-26 mg by Lukes - 500 MG 10:59: mouth Medical tablet 53 daily. [place] ALPRAZolam Yes 2mg Take 2 mg CH [...] next 30 min. . HYDROcodone Yes 1{tbl} Q.[id number] Take [address] -acetaminop 8-26 [id number] tablet by [facility]ukes - hen (NORCO 09:40: 3D mouth 3 Medi josephine 5-325) 47 (three) Center 5-325 mg times per tablet daily. ursodioL Yes 500mg QD Take [address] (ACTIGALL) 8-26 mg by Lukes - 500 MG 09:40: mouth Medical tablet 47 daily. Center meclizine Yes [facility] (ANTIVERT) 6-21 [facility]ukes - 25 mg 00:00: Medical tablet 00 [place] meclizine Yes [facility] (ANTIVERT) 6-21 [facility] - 25 mg 00:00: Medical tablet 00 Center meclizine Yes [facility] (ANTIVERT) 6-21 [facility] - 25 mg 00:00: Medical tablet 00 [place] meclizine Yes [facility] (ANTIVERT) 6-21 [facility] - 25 mg 00:00: Medical tablet 00 [place] Nortriptyli Nortriptyli Yes HOLLIE TAKE 1 Univers [...] i ty of Tablet Tablet 00:00: TWICE [place] 00 DAILY. Physici ans MetFORMIN MetFORMIN Yes [...] AT ity of Tablet Tablet 00:00: BEDTIME. 00 Physici ans Omeprazole Omeprazole Yes R.N. [...] ity of mg 24 hr 08:12: daily. [place] capsule 18 Medical Branch ALPRAZolam Yes 2mg [...] MOUTH 00 TWICE A Medical DAY WITH Branch FOOD morpHINE Yes TK 1 AND Unive rs I.R. (MSIR) 6-10 1/2 TS PO ity of 30 mg 00:00: BID. [place] tablet 00 Medical Branch Lisinopril, Yes Univer s Bulk, 100 % 6-03 ity of Powd 00:00: [place] 00 [facility] gabapentin 2016-0 Yes TAKE 1 Unive rs (NEURONTIN) 5-20 TABLET BY ity of 600 mg 00:00: MOUTH [place] tablet 00 EVERY 8 Medical HOURS Branch ciprofloxac 2015-1 Yes 500mg Take 1 Tab Univers in HCl 1-30 by mouth 2 ity of (CIPRO) 500 00:00: (two) [place] mg tablet 00 times Medical daily. Branch Immunizations Ordered Filled Immunization Date Status Comments Sour e Immunization Name Name SARS-COV-2 COVID-19 2020-11-11 Completed Unive rsity of PFIZER VACCINE 00:00:00 [facility] SARS-COV-2 COVID-19 2020-10-21 Completed Unive rsity of PFIZER VACCINE 00:00:00 [facility] Vital Signs Vital Name Observation Time Observation Value Comments Source WEIGHT 2021-03-10 62.596 kg 11:08:00 Systolic blood 2021-07-24 144 mm[Hg] University of pressure 19:28:00 [facility] [place] [facility] Diastolic blood 2021-07-24 90 mm[Hg] [facility] pressure 19:28:00 [facility] [place] [facility] Heart rate 2021-07-24 87 /min [facility] 19:28:00 [facility] [place] [facility] Respiratory rate 2021-07-24 18 /min [facility] 19:28:00 [facility] [place] [facility] Oxygen saturation 2021-07-24 97 /min [facility] in Arterial blood 19:28:00 [facility] by Pulse oximetry [place] Body temperature 2021-07-24 37 Carolann [facility] 16:20:00 [facility] [place] [facility] Body weight 2021-07-24 61.236 kg University 16:20:00 [facility] [place] [facility] BMI 2021-07-24 25.51 kg/m2 [facility] 16:20:00 [facility] [place] [facility] HEIGHT 2021-05-04 152.4 cm 17:29:00 WEIGHT 2021-05-04 61.689 kg 17:29:00 HEIGHT 2021-05-04 152.4 cm 17:29:00 WEIGHT 2021-05-04 61.689 kg 17:29:00 WEIGHT 2021-03-10 62.596 kg 11:08:00 Systolic blood 2021-05-07 156 mm[Hg] [facility] - pressure 08:00:00 Medical [place] Diastolic blood 2021-05-07 74 mm[Hg] [facility] - pressure 08:00:00 Medical Center Heart rate 2021-05-07 76 /min [facility] - 08:[facility]:00 Medical Center Body temperature 2021-05-07 36.72 Carolann [facility] - 08:00:00 Medical Center Respiratory rate 2021-05-07 17 /min [facility] - 08:00:00 Medical Center Oxygen saturation 2021-05-07 97 /min [facility] St Sujata es - in Arterial blood 08:00:00 Medical nter by Pulse oximetry Body height 2021-05-04 152.4 cm [facility] - 17:29:00 [facility] Body weight 2021-05-04 61.689 kg [facility] - 17:29:00 [facility] BMI 2021-05-04 26.56 kg/m2 [facility] - 17:29:00 [facility] BP Systolic 2018-02-01 131 mm[Hg] Location: [facility] 08:36:00 Position: [place] Physician s Sitting BP Diastolic 2018-02-01 78 mm[Hg] Location: [facility] 08:36:00 Position: [place] Physician s Sitting Height 2018-02-01 60 [in_us] [facility] 08:36:00 [place] Physician s Weight 2018-02-01 117 [lb_av] [facility] 08:36:00 [place] Physician s Body Mass Index 2018-02-01 22.85 kg/m2 [facility] Calculated 08:36:00 [place] Physician s Heart Rate 2018-02-01 73 /min Location: [facility] 08:36:00 Brachial [place] Physician s Artery; Procedures Procedure Date / Time Performing Clinician Source Performed CT ABDOMEN PELVIS W 2021-07-24 18:00:55 Glenn Fu [facility] CONTRAST Medical Branch URINALYSIS 2021-07-24 17:39:00 Singer Glenn [facility] Branch LIPASE 2021-07-24 16:33:00 Singer [facility] COMP. METABOLIC PANEL 2021-07-24 16:33:00 [facility] ([id number]) Medical Branch CBC WITH DIFF 2021-07-24 16:33:00 Singer [facility] NOTICE OF PRIVACY 2021-07-24 16:11:11 Doctor Unassigned, [facility] PRACTICES [facility] REPORT OF PROCEDURE - 2021-05-06 16:07:30 Juan Alberto Shelton [facility] ENDOSCOPY [facility] ERCP,DIRECT VISUALIZATION 2021-05-06 15:00:00 Juan Alberto Shelton [facility] PROCEDURE W/ C-ARM 2021-05-06 15:00:00 Juan Alberto Shelton [facility] ERCP,BALLOON SWEEPING 2021-05-06 15:00:00 Juan Alberto Shelton [facility] CBC W/PLT COUNT & AUTO 2021-05-06 05:51:00 [facility] BASIC METABOLIC PANEL (7) 2021-05-06 05:51:00 [facility] HEPATIC FUNCTION PANEL 2021-05-06 05:51:00 Stephca [facility] ABORH, MANUAL 2021-05-05 05:07:[address] [facility] TYPE AND SCREEN, 2021-05-05 04:14:00 Roxie [place] [facility] PROTHROMBIN TIME/INR 2021-05-05 04:14:00 [facility] SARS-COV2/RT-PCR ([facility] & 2021-05-05 00:18:00 Britney Lloyd [facility] - REF LABS) [facility] BLOOD GAS, VENOUS 2021-05-05 00:14:00 [facility] KETONE, BLOOD 2021-05-05 00:14:00 [facility] HIGH SENSITIVITY TROPONIN 2021-05-05 00:14:00 Roxie [facility] ED ECG INTERPRETATION 2021-05-04 23:15:17 [facility] BASIC METABOLIC PANEL (7) 2021-05-04 21:30:[address] [facility] HEPATIC FUNCTION PANEL 2021-05-04 21:30:[address] [facility] AMYLASE 2021-05-04 21:30:00 Roxie [facility] LIPASE 2021-05-04 21:30:00 Roxie [facility] CBC W/PLT COUNT & AUTO 2021-05-04 19:37:00 Roxie [facility] ECG 12-LEAD 2021-05-04 19:22:33 Unknown, Hl7 Doctor [facility] POCT-GLUCOSE METER 2021-03-11 08:21:[address] [facility] COMPREHENSIVE METABOLIC 2021-03-11 06:09:[address] [facility] REPORT OF PROCEDURE - 2021-03-10 23:43:51 Allen Chavez [facility] - ENDOSCOPY [facility] POCT-GLUCOSE METER 2021-03-10 16:43:[address] [facility] POCT-GLUCOSE METER 2021-03-10 12:45:[address] [facility] [place] ERCP 2021-03-10 12:02:00 Desiree Duggan [facility] ERCP,PAPILLOTOMY 2021-03-10 11:31:00 [facility] W/ C-ARM 2021-03-10 11:31:00 Kathy [facility] ERCP,BALLOON SWEEPING 2021-03-10 11:31:00 Kathy [facility] POCT-GLUCOSE METER 2021-03-10 09:07:[address] [facility] CBC (HEMOGRAM ONLY) 2021-03-10 04:50:00 [facility] COMPREHENSIVE METABOLIC 2021-03-10 04:50:00 [facility] HEMOGLOBIN A1C 2021-03-10 04:50:00 [facility] POCT-GLUCOSE METER 2021-03-09 23:54:00 [facility] SARS-COV2/RT-PCR ([facility] & 2021-03-09 20:13:00 Desiree Duggan [facility] - REF LABS) [facility] POCT-GLUCOSE METER 2021-03-09 17:22:00 [facility] MR ABDOMEN WITHOUT IV 2021-03-09 15:38:00 [facility] CONTRAST MRCP [facility] POCT-GLUCOSE METER 2021-03-09 12:22:00 [facility] URINALYSIS W/ REFLEX 2021-03-09 10:56:00 [facility] URINE CULTURE [facility] HEPATIC FUNCTION PANEL 2021-03-09 05:25:00 [facility] PROTHROMBIN TIME/INR 2021-03-09 05:25:00 [facility] MAGNESIUM 2021-03-09 05:25:00 [facility] BASIC METABOLIC PANEL (7) 2021-03-09 05:25[facility]00 [facility] CBC W/PLT COUNT & AUTO 2021-03-09 05:25:00 [facility] DIFFERENTIAL [facility] HEMOGLOBIN A1C 2021-03-09 05:25:00 [facility] MRI Brain wo contrast 2018-02-08 00:00:00 [facility] [id number] Physicians MRI Brain w/wo contrast 2018-02-01 00:00:00 [facility] [id number] Physicians [facility] Physicians Plan of Care Planned Activity Planned Date Details Comments Source Future Scheduled 2021-09-[address] [facility] - Test 00:00:00 measurement Medical Center (procedure) [code = 45403370] Future Scheduled 2021-09-[address] [facility] - Test 00:00:00 measurement Medical Center (procedure) [code = 89188312] Future Scheduled 2021-09-[address] [facility] - Test 00:00:00 measurement Medical Center (procedure) [code = 32715762] Future Scheduled 2021-09-[address] [facility] - Test 00:00:00 measurement Medical Center (procedure) [code = 43091857] Future Scheduled 2021-05-13 INFLUENZA VACCINE (#1) C [...] [facility] - Test 00:00:00 ([address] [place] [address] [id number] PCV13) [code = PNEUMOCOCCAL 65+ YRS (1 of 1 - [id number]_Rukhrau PCV13)] Future Scheduled 2013 PNEUMOCOCCAL 65+ YRS [facility] - Test 00:00:00 ([address] [place] [address] Center [id number]_Lruzqyl PCV13) [code = PNEUMOCOCCAL 65+ YRS (1 of 1 - [id number]_Isewobp PCV13)] Future Scheduled 2013 PNEUMOCOCCAL 65+ Y[facility] - Test 00:00:00 ([address] [place] [address] [id number]_Rjfdlib PCV13) [code = PNEUMOCOCCAL 65+ YRS (1 of 1 - EUYP62_Rtanofu PCV13)] Future Scheduled 2013 PNEUMOCOCCAL 65+ Y[facility] - Test 00:00:00 (1 of 1 - Medical Center LRHF95_Otimbyu PCV13) [code = PNEUMOCOCCAL 65+ YRS (1 of 1 - XPCI57_Rbmgzpa PCV13)] Future Scheduled 2004-10-14 MEDICARE ANNUAL CHI [...] 00:00:00 examination Medical Center (regime/therapy) [code = 290856873] Future Scheduled 1958 Urine screening [facility] - Test 00:00:00 protein (procedure) Medical Center [code = 331213768] Future Scheduled 1960 DIABETIC EYE EXAM [facility] - Test 00:00:00 [code = DIABETIC EYE Medical Center EXAM] Future Scheduled [address] [facility] - Test 00:00:00 examination Medical Center (regime/therapy) [code = 935821963] Future Scheduled 1958 Urine screening [facility] Test 00:00:00 protein (procedure) Medical Center [code = 407872153] Future Scheduled 1960 DIABETIC EYE EXAM [facility] - Test 00:00:00 [code = DIABETIC EYE Medical Center EXAM] Future Scheduled [address] [facility] - Test 00:00:00 examination Medical Center (regime/therapy) [code = 767735071] Future Scheduled 1958 Urine screening [facility] Test 00:00:00 protein (procedure) Medical Center [code = 747440786] Future Scheduled 1958 DIABETIC EYE EXAM [facility] Test 00:00:00 [code = DIABETIC EYE Medical Center EXAM] Future Scheduled [address] [facility] - Test 00:00:00 examination Medical Center (regime/therapy) [code = 667329128] Future Scheduled 1958 Urine screening [facility] Test 00:00:00 protein (procedure) Medical Center [code = 556331212] Future Scheduled [address] [facility] - Test 00:00:00 malignant neoplasm of Medica l Center breast (procedure) [code = 843317505] Future Scheduled [address] [facility] - Test 00:00:00 malignant neoplasm of Medica l Center colon (procedure) [code = 056135310] Future Scheduled [address] [facility] - Test 00:00:00 malignant neoplasm of Medica l Center breast (procedure) [code = 973448512] Future Scheduled [address] [facility] - Test 00:00:00 malignant neoplasm of Medica l Center colon (procedure) [code = 711399093] Future Scheduled [address] [facility] - Test 00:00:00 malignant neoplasm of Medica l Center breast (procedure) [code = 052839130] Future Scheduled [address] [facility] - Test 00:00:00 malignant neoplasm of Medica l Center colon (procedure) [code = 829676129] Future Scheduled [address] [facility] - Test 00:00:00 malignant neoplasm of Medica l Center breast (procedure) [code = 993518615] Future Scheduled [address] [facility] - Test 00:00:00 malignant neoplasm of Medica l Center colon (procedure) [code = 271938654] Encounters Start End Encounter Admission Attending Care Care Encounter Source Date/Time Date/Time Type Type Clinicians Facility Department ID 2021-06-21 Inpatient ER TERESA BURNETT Gastro [id number] [facility] 02:39:12 [place] 2021-08-10 2021-08-[address] [facility] [id number] [facility] 10:38:01 17:18:04 LEV Bermudezg e of Medicin e 2021-07-24 2021-07-24 Emergency X [facility] ERT [id number] Univers 10:12:00 14:31:00 GLENN gail [facility] 2021-07-24 2021-07-24 Emergency [facility] [id number] Univers 10:12:00 14:31:00 Glenn DONATO [id number] i ty [facility] [id number] [facility] [id number] [place] [address] Branch 2021-05-04 2021-05-07 Hospital ER Cherie Faustin [facility] [id number] 17:37:00 10:59:00 [facility] 2021-05-06 2021-05-[address] [facility] [id number] 15:10:00 16:27:00 Event Jm Rushing [facility] 2021-05-06 2021-05-[address] [facility] [id number] 13:00:00 14:30:00 [facility] 2021-05-05 2021-05-05 Travel [facility] [id number] [facility] 00:[facility]:00 00:00:00 [facility] 2021-05-04 2021-05-04 Outpatient [facility] [id number] [facility] 00:00:00 23:59:00 [facility] Medicin e 2021-05-04 2021-05-04 Emergency ER [facility] Emergency [id number] [facility] 17:24:00 17:24:00 2021-05-04 2021-05-[address] [facility] [id number] 00:00:00 00:00:00 Only [facility] 2021-05-04 2021-05-04 Travel [facility] [id number] [facility] 00:[facility]:00 00:00:00 [facility] 2021-05-01 2021-05-01 [id number] 16:21:00 22:56:00 [facility] 2021-03-13 2021-03-13 Telephone Ezequiel, [facility] [id number] 00:00:00 00:00:00 [facility] 2021-03-08 2021-03-11 [facility] Curtis BurnettKenrick [facility] [id number] 23:13:00 11:35:00 Encounter Bret Schuster [facility] 2021-03-10 2021-03-10 [facility] [id number] 11:00:00 12:30:00 [facility] 2021-03-10 2021-03-10 An[address]hesia Bahena, [facility] [id number] 11:36:00 12:27:00 Event Graciela jessica Colón [facility] 2018-02-01 2018-02-01 AppointBRENDAN Hussein Neurology [id number] Univers 08:00:00 08:00:00 HOLLIE Adair ity of CHRISTINA, M.D. [place] M.D. Physici ans Results Test Description Test Time Test Comments Results Result Comments Source COMP. METABOLIC PANEL (79532) 2021-07-24 17:14:29 Test Item Value Reference Range Interpretation Comme nts NA (test code = 6154836112) 139 mmol/L 135-145 K (test code = 5889652800) 4.3 mmol/L 3.5-5.0 CL (test code = 8921103182) 104 mmol/L 98-108 CO2 TOTAL (test code = 7565242326) 24 mmol/L 23-31 AGAP (test code = 6874362216) 2-16 BUN (test code = 3268511373) 18 mg/dL 7-23 GLUCOSE (test code = 9281669014) 104 mg/dL 70-110 CREATININE (test code = 1.39 mg/dL 0.50-1.04 H 7968314925) TOTAL BILI (test code = 0.4 mg/dL 0.1-1.2 1818571941) CALCIUM (test code = 0316362800) 9.6 mg/dL 8.6-10.6 T PROTEIN (test code = 6374582430) 8.4 g/dL 6.3-8.2 H ALBUMIN (test code = 6526347715) 4.6 g/dL 3.5-5.0 ALK PHOS (test code = 6613418297) 93 U/L 34-122 ALTv (test code = 1742-6) 44 U/L 5-35 H AST(SGOT) (test code = 5443906075) 48 U/L 13-40 H eGFR (test code = 7204593353) mL/min/1.73m2 TORRES (test code = TORRES) Association [...] tests). Lab Interpretation (test code = Abnormal 10982-6) [facility]13[facility]49 Test Item Value Reference Range Interpretation Comments LIPASE (test code = 0532306596) 266 U/L 0-220 H Lab Interpretation (test code = Abnormal 05486-7) [facility] [id number] 17:03:27 Test Item Value Reference Range Interpretation Comments WBC (test code = See_Comment [Automated 5690-2) message] The sy stem which generated this result transmitted reference range : 4.30 - 11.10 10*3/?L. The reference range was not used to interpret this result as normal/abnormal . RBC (test code = See_Comment [Automated 939-8) message] The sy stem which generated this [...] RDW-SD (test code = 48.4 fL 39.0-49.9 44378-1) RDW-CV (test code = 13.8 % 12.0-15.5 788-0) PLT (test code = See_Comment [Automated 457-3) message] The sy stem which generated this result transmitted reference range : 166 - 358 10*3/ ?L. The reference r becca was not used to interpret this result as normal/abnormal . MPV (test code = 9.1 fL 9.5-12.9 L 21221-3) NRBC/100 WBC (test See_Comment [Automat ed code = 2179507001) message] The system which generated this result transmitted reference range : 0.0 - 10.0 /100 WBCs. The refer ence range was not u sed to interpret th is result as normal/abnormal . NRBC x10^3 (test code <0.01 See_Comment [Auto mated = 5339207802) message] The s ystem which generated this result transmitted reference range : 10*3/?L. The reference range was not used to interpret this result as normal/abnormal . GRAN MAT (NEUT) % 64.8 % (test code = 770-8) IMM GRAN % (test code 0.90 % = [id number]) LYMPH % (test code = 24.2 % 736-9) MONO % (test code = 8.2 % 5905-5) EOS % (test code = 1.4 % 713-8) BASO % (test code = 0.5 % 706-2) GRAN MAT x10^3(ANC) 5.59 10*3/uL 1.88-7.09 (test code = 7969731323) IMM GRAN x10^3 (test 0.08 10*3/uL 0.00-0.06 H code = 9329694851) LYMPH x10^3 (test code 2.09 10*3/uL 1.32-3.29 = 731-0) MONO x10^3 (test code 0.71 10*3/uL 0.33-0.92 = 742-7) EOS x10^3 (test code = 0.12 10*3/uL 0.03-0.39 711-2) BASO x10^3 (test code 0.04 10*3/uL 0.01-0.07 = 704-7) Lab Interpretation Abnormal (test code = 67085-7) [facility] [id number] 07:08:00 Test Item Value Reference Range Interpretation Comments Sodium (test code = 139 meq/L 442-055 9082-2) Potassium (test 4.1 meq/L 3.5-5.1 code = 2823-3) Chloride (test code 107 meq/L 98-107 = 2075-0) CO2 (test code = 25 meq/L 22-29 2027-9) BUN (test code = 13 mg/dL 7-21 3094-0) Creatinine (test 0.97 mg/dL 0.57-1.25 code = 2160-0) Glucose (test code 80 mg/dL 70-105 = 2345-7) Calcium (test code 8.9 mg/dL 8.4-10.2 = 96863-9) EGFR (test code = 56 mL/min/1.[address] [place] [address]-7) NOT ACCURATE CREATININE CLEARANCE IN PREDICTING GLOMERULAR FILTRATION RATE . ESTIMATED GFR I S NOT APPLICABLE FOR DIALYSIS PATIEN TORRES (test code = Loader Demolder ID - TORRES) TOÑITO Camacho [facility] Center[facility] function [id number] 07:08:00 Test Item Value Reference Range Interpretation Comments Protein, Total (test 6.9 See_Comment [Autom ated code = 2885-2) message] The system which generated this result transmit lane reference range : 6.0 - 8.3 gm/dL . The reference range was not u sed to interpret th is result as normal/abnormal . Albumin (test code = 3.6 g/dL 3.5-5 36803-0) Total Bilirubin (test 0.3 mg/dL 0.2-1.2 code = 1974-2) Bilirubin, Direct 0.2 mg/dL 0.1-0.5 (test code = 1967-7) Alkaline Phosphatase 56 U/L 40-150 (test code = 6768-6) AST (test code = 37 U/L 5-34 H 1920-8) ALT (test code = 50 U/L 6-55 1742-6) TORRES (test code = TORRES) Loader Demolder ID - TOÑITO Camacho Lab Interpretation Abnormal (test code = 58272-6) [facility] [id number] 07:08:00 Test Item Value Reference Range Interpretation Comments Sodium (test code = 139 meq/L 244-450 4383-2) Potassium (test 4.1 meq/L 3.5-5.1 code = 2823-3) Chloride (test code 107 meq/L 98-107 = 2075-0) CO2 (test code = 25 meq/L 2028-05) BUN (test code = 13 mg/dL 7-21 3094-0) Creatinine (test 0.97 mg/dL 0.57-1.25 code = 2160-0) Glucose (test code 80 mg/dL 70-105 = 2345-7) Calcium (test code 8.9 mg/dL 8.4-10.2 = 10843-9) EGFR (test code = 56 mL/min/1.[address] [place] [address]-4) NOT ACCURATE CREATININE CLEARANCE IN PREDICTING GLOMERULAR FILTRATION RATE . ESTIMATED GFR I S NOT APPLICABLE FOR DIALYSIS PATIEN TORRES (test code = Loader Demolder ID - TORRES) TOÑITO Camacho [facility] Center[facility] function [id number] 07:08:00 Test Item Value Reference Range Interpretation Comments Protein, Total (test 6.9 See_Comment [Autom ated code = 2885-2) message] The system which generated this result transmit lane reference range : 6.0 - 8.3 gm/dL . The reference range was not u sed to interpret th is result as normal/abnormal . Albumin (test code = 3.6 g/dL 3.5-5 41524-1) Total Bilirubin (test 0.3 mg/dL 0.2-1.2 code = 1974-2) Bilirubin, Direct 0.2 mg/dL 0.1-0.5 (test code = 1968-7) Alkaline Phosphatase 56 U/L 40-150 (test code = 6768-6) AST (test code = 37 U/L 5-34 H 1920-8) ALT (test code = 50 U/L 6-55 1742-6) TORRES (test code = TORRES) Loader Demolder ID - PIJOVANNI L Lab Interpretation Abnormal (test code = 14565-2) [facility] [id number] 07:08:00 Test Item Value Reference Range Interpretation Comments Sodium (test code = 139 meq/L 841-755 5645-2) Potassium (test 4.1 meq/L 3.5-5.1 code = 2823-3) Chloride (test code 107 meq/L 98-107 = 2075-0) CO2 (test code = 25 meq/L 22-29 2028-9) BUN (test code = 13 mg/dL 04-01 3094-0) Creatinine (test 0.97 mg/dL 0.57-1.25 code = 2160-0) Glucose (test code 80 mg/dL 70-105 = 2345-7) Calcium (test code 8.9 mg/dL 8.4-10.2 = 58102-6) EGFR (test code = 56 mL/min/1.[address] [place] [address]-0) NOT ACCURATE CREATININE CLEARANCE IN PREDICTING GLOMERULAR FILTRATION RATE . ESTIMATED GFR I S NOT APPLICABLE FOR DIALYSIS PATIEN TORRES (test code = Loader Demolder ID - TORRES) TOÑITO Camacho [facility] Center[facility] function [id number] 07:08:00 Test Item Value Reference Range Interpretation Comments Protein, Total (test 6.9 See_Comment [Autom ated code = 2885-2) message] The system which generated this result transmit lane reference range : 6.0 - 8.3 gm/dL . The reference range was not u sed to interpret th is result as normal/abnormal . Albumin (test code = 3.6 g/dL 3.5-5 64054-2) Total Bilirubin (test 0.3 mg/dL 0.2-1.2 code = 1975-2) Bilirubin, Direct 0.2 mg/dL 0.1-0.5 (test code = 1967-7) Alkaline Phosphatase 56 U/L 40-150 (test code = 6768-6) AST (test code = 37 U/L 5-34 H 1920-8) ALT (test code = 50 U/L 6-55 1742-6) TORRES (test code = TORRES) Loader Demolder ID - TOÑITO Camacho Lab Interpretation Abnormal (test code = 15601-3) [facility] [id number] 07:08:00 Test Item Value Reference Range Interpretation Comments Sodium (test code = 139 meq/L 639-419 1075-2) Potassium (test 4.1 meq/L 3.5-5.1 code = 2823-3) Chloride (test code 107 meq/L 98-107 = 2075-0) CO2 (test code = 25 meq/L 22-29 8-9) BUN (test code = 13 mg/dL 04-01 3094-0) Creatinine (test 0.97 mg/dL 0.57-1.25 code = 2160-0) Glucose (test code 80 mg/dL 70-105 = 2345-7) Calcium (test code 8.9 mg/dL 8.4-10.2 = 21519-9) EGFR (test code = 56 mL/min/1.[address] [place] [address]-2) NOT ACCURATE CREATININE CLEARANCE IN PREDICTING GLOMERULAR FILTRATION RATE . ESTIMATED GFR I S NOT APPLICABLE FOR DIALYSIS PATIEN TORRES (test code = Loader Demolder ID - TORRES) TOÑITO Camacho [facility] CenterHep[facility] function [id number] 07:08:00 Test Item Value Reference Range Interpretation Comments Protein, Total (test 6.9 See_Comment [Autom ated code = 2885-2) message] The system which generated this result transmit lane reference range : 6.0 - 8.3 gm/dL . The reference range was not u sed to interpret th is result as normal/abnormal . Albumin (test code = 3.6 g/dL 3.5-5 57787-1) Total Bilirubin (test 0.3 mg/dL 0.2-1.2 code = 1975-2) Bilirubin, Direct 0.2 mg/dL 0.1-0.5 (test code = 1968-7) Alkaline Phosphatase 56 U/L 40-150 (test code = 6768-6) AST (test code = 37 U/L 5-34 H 1920-8) ALT (test code = 50 U/L 6-55 1742-6) TORRES (test code = TORRES) Loader Demolder ID - TOÑITO Camacho Lab Interpretation Abnormal (test code = 98538-8) [facility] Center[facility]IC METABOLIC [id number] 07:08:00 Test Item Value Reference Range Interpretation [...] S NOT APPLICABLE FOR DIALYSIS PATIEN TS. Loader Demolder ID - PIJOVANNI LHEPATIC FUNCTION [id number] 07:08:00 Test Item Value Reference Range Interpretation [...] (test code = 50 U/L 6-55 347) Loader Demolder ID - TOÑITO LCBC with platelet count + automated [id number] 06:01:00 Test Item Value Reference Range Interpretation Comments WBC (test code = 6690-2) 7.9 See_Comment [A utomated message] The system [employer] generated this result transmitted ref erence range: 3.5 - 10 .5 K/L. The refe rence range was not u sed to interpret this result as normal/abnor mal. RBC (test code = 789-8) 3.22 See_Comment L [Au tomated message] The system [employer] generated this result transmitted ref erence range: 3.93 - 5 .22 M/L. The refe rence range was not u sed to interpret this result as normal/abnor mal. MCHC (test code = 786-4) 31.8 See_Comment L [A utomated message] The system [employer] generated this result transmitted ref erence range: [...] See_Comment [Aut omated message] 777-3) The system [employer] generated this result transmitted ref erence range: 150 - 45 0 K/CU MM. The referen ce range was not u sed to interpret this result as normal/abnor mal. MPV (test code = 8.9 fL 9.4-12.3 L 02821-7) nRBC (test code = 413) 0 See_Comment [Aut omated message] The system [employer] generated this result transmitted ref erence range: [...] See_Comment [Aut omated message] 670) The system [employer] generated this result transmitted ref erence range: 1.56 - 6 .13 K/L. The refe rence range was not u sed to interpret this result as normal/abnor mal. # Lymphs (test code = 2.20 See_Comment [Auto mated message] 414) The system [employer] generated this result transmitted ref erence range: 1.18 - 3 .74 K/L. The refe rence range was not u sed to interpret this result as normal/abnor mal. # Monos (test code = 0.54 See_Comment H [Autom ated message] 415) The system [employer] generated this result transmitted ref erence range: 0.24 - 0 .36 K/L. The refe rence range was not u sed to interpret this result as normal/abnor mal. # Eos (test code = 416) 0.08 See_Comment [Au tomated message] The system [employer] generated this result transmitted ref erence range: 0.04 - 0 .36 K/L. The refe rence range was not u sed to interpret this result as normal/abnor mal. # Baso (test code = 417) 0.03 See_Comment [A utomated message] The system [employer] generated this result transmitted ref erence range: 0.01 - 0 .08 K/L. The refe rence range was not u sed to interpret this result as normal/abnor mal. Immature 0 % 0-1 Granulocytes-Relative (test code = 2801) Lab Interpretation (test Abnormal code = 27607-1) [facility] with platelet count + automated [id number] 06:01:00 Test Item Value Reference Range Interpretation Comments WBC (test code = 6690-2) 7.9 See_Comment [A utomated message] The system [employer] generated this result transmitted ref erence range: 3.5 - 10 .5 K/L. The refe rence range was not u sed to interpret this result as normal/abnor mal. RBC (test code = 789-8) 3.22 See_Comment L [Au tomated message] The system [employer] generated this result transmitted ref erence range: 3.93 - 5 .22 M/L. The refe rence range was not u sed to interpret this result as normal/abnor mal. MCHC (test code = 786-4) 31.8 See_Comment L [A utomated message] The system [employer] generated this result transmitted ref erence range: [...] See_Comment [Aut omated message] 777-3) The system [employer] generated this result transmitted ref erence range: 150 - 45 0 K/CU MM. The referen ce range was not u sed to interpret this result as normal/abnor mal. MPV (test code = 8.9 fL 9.4-12.3 L 63473-9) nRBC (test code = 413) 0 See_Comment [Aut omated message] The system [employer] generated this result transmitted ref erence range: [...] See_Comment [Aut omated message] 670) The system [employer] generated this result transmitted ref erence range: 1.56 - 6 .13 K/L. The refe rence range was not u sed to interpret this result as normal/abnor mal. # Lymphs (test code = 2.20 See_Comment [Auto mated message] 414) The system [employer] generated this result transmitted ref erence range: 1.18 - 3 .74 K/L. The refe rence range was not u sed to interpret this result as normal/abnor mal. # Monos (test code = 0.54 See_Comment H [Autom ated message] 415) The system [employer] generated this result transmitted ref erence range: 0.24 - 0 .36 K/L. The refe rence range was not u sed to interpret this result as normal/abnor mal. # Eos (test code = 416) 0.08 See_Comment [Au tomated message] The system [employer] generated this result transmitted ref erence range: 0.04 - 0 .36 K/L. The refe rence range was not u sed to interpret this result as normal/abnor mal. # Baso (test code = 417) 0.03 See_Comment [A utomated message] The system [employer] generated this result transmitted ref erence range: 0.01 - 0 .08 K/L. The refe rence range was not u sed to interpret this result as normal/abnor mal. Immature 0 % 0-1 Granulocytes-Relative (test code = 2801) Lab Interpretation (test Abnormal code = 24893-5) [facility] with platelet count + automated [id number] 06:01:00 Test Item Value Reference Range Interpretation Comments WBC (test code = 6690-2) 7.9 See_Comment [A utomated message] The system [employer] generated this result transmitted ref erence range: 3.5 - 10 .5 K/L. The refe rence range was not u sed to interpret this result as normal/abnor mal. RBC (test code = 789-8) 3.22 See_Comment L [Au tomated message] The system [employer] generated this result transmitted ref erence range: 3.93 - 5 .22 M/L. The refe rence range was not u sed to interpret this result as normal/abnor mal. MCHC (test code = 786-4) 31.8 See_Comment L [A utomated message] The system [employer] generated this result transmitted ref erence range: [...] See_Comment [Aut omated message] 777-3) The system [employer] generated this result transmitted ref erence range: 150 - 45 0 K/CU MM. The referen ce range was not u sed to interpret this result as normal/abnor mal. MPV (test code = 8.9 fL 9.4-12.3 L 56041-3) nRBC (test code = 413) 0 See_Comment [Aut omated message] The system [employer] generated this result transmitted ref erence range: [...] See_Comment [Aut omated message] 670) The system [employer] generated this result transmitted ref erence range: 1.56 - 6 .13 K/L. The refe rence range was not u sed to interpret this result as normal/abnor mal. # Lymphs (test code = 2.20 See_Comment [Auto mated message] 414) The system [employer] generated this result transmitted ref erence range: 1.18 - 3 .74 K/L. The refe rence range was not u sed to interpret this result as normal/abnor mal. # Monos (test code = 0.54 See_Comment H [Autom ated message] 415) The system [employer] generated this result transmitted ref erence range: 0.24 - 0 .36 K/L. The refe rence range was not u sed to interpret this result as normal/abnor mal. # Eos (test code = 416) 0.08 See_Comment [Au tomated message] The system [employer] generated this result transmitted ref erence range: 0.04 - 0 .36 K/L. The refe rence range was not u sed to interpret this result as normal/abnor mal. # Baso (test code = 417) 0.03 See_Comment [A utomated message] The system [employer] generated this result transmitted ref erence range: 0.01 - 0 .08 K/L. The refe rence range was not u sed to interpret this result as normal/abnor mal. Immature 0 % 0-1 Granulocytes-Relative (test code = 2801) Lab Interpretation (test Abnormal code = 40748-6) [facility] with platelet count + automated [id number] 06:01:00 Test Item Value Reference Range Interpretation Comments WBC (test code = 6690-2) 7.9 See_Comment [A utomated message] The system [employer] generated this result transmitted ref erence range: 3.5 - 10 .5 K/L. The refe rence range was not u sed to interpret this result as normal/abnor mal. RBC (test code = 789-8) 3.22 See_Comment L [Au tomated message] The system [employer] generated this result transmitted ref erence range: 3.93 - 5 .22 M/L. The refe rence range was not u sed to interpret this result as normal/abnor mal. MCHC (test code = 786-4) 31.8 See_Comment L [A utomated message] The system [employer] generated this result transmitted ref erence range: [...] See_Comment [Aut omated message] 777-3) The system [employer] generated this result transmitted ref erence range: 150 - 45 0 K/CU MM. The referen ce range was not u sed to interpret this result as normal/abnor mal. MPV (test code = 8.9 fL 9.4-12.3 L 09523-0) nRBC (test code = 413) 0 See_Comment [Aut omated message] The system [employer] generated this result transmitted ref erence range: [...] See_Comment [Aut omated message] 670) The system [employer] generated this result transmitted ref erence range: 1.56 - 6 .13 K/L. The refe rence range was not u sed to interpret this result as normal/abnor mal. # Lymphs (test code = 2.20 See_Comment [Auto mated message] 414) The system [employer] generated this result transmitted ref erence range: 1.18 - 3 .74 K/L. The refe rence range was not u sed to interpret this result as normal/abnor mal. # Monos (test code = 0.54 See_Comment H [Autom ated message] 415) The system [employer] generated this result transmitted ref erence range: 0.24 - 0 .36 K/L. The refe rence range was not u sed to interpret this result as normal/abnor mal. # Eos (test code = 416) 0.08 See_Comment [Au tomated message] The system [employer] generated this result transmitted ref erence range: 0.04 - 0 .36 K/L. The refe rence range was not u sed to interpret this result as normal/abnor mal. # Baso (test code = 417) 0.03 See_Comment [A utomated message] The system [employer] generated this result transmitted ref erence range: 0.01 - 0 .08 K/L. The refe rence range was not u sed to interpret this result as normal/abnor mal. Immature 0 % 0-1 Granulocytes-Relative (test code = 2801) Lab Interpretation (test Abnormal code = 44623-1) [facility] W/PLT COUNT & AUTO [id number] 06:01:00 Test Item Value Reference Range Interpretation [...] (BEAKER) (test code = 2801) ECG 12 [id number] 06:47:19Interface, External Ris In - 05/05/2021 6:47 AM CDTVentricular Rate 91 BPMAtrial Rate 91 BPMP-R Interval 126 msQRS Duration 78 msQ-T Interval 352 msQTC Calculation(Bazett) 432 msP [place] 44 degreesR [place] 28 degreesT [place] 39 degreesNormal sinus rhythmNormal ECGNo previous ECGs availableConfirmed by MD BELLAMY JOSEPH P ([id number]) on 05/05/2021 6:47:15 [facility] 12 [id number] 06:47:19Interface, External Ris In 05/05/2021 6:47 AM CDTVentricular Rate 91 BPMAtrial Rate 91 BPMP-R Inte rval 126 msQRS Duration 78 msQ-T Interval 352 msQTC Calculation(Bazett) 432 msP [place] 44 degreesR [place] 28 degreesT [place] 39 degreesNormal sinus rhythmNormal ECGNo previous ECGs availableConfirmed by MD BELLAMY JOSEPH P ([id number]) on 05/05/2021 6:47:15 [facility] 12 [id number] 06:47:19Interface, External Ris In 05/05/2021 6:47 AM CDTVentricular Rate 91 BPMAtrial Rate 91 BPMP-R Interval 126 msQRS Duration 78 msQ-T Interval 352 msQTC Calculation(Bazett) 432 msP [place] 44 degreesR [place] 28 degreesT [place] 39 degreesNormal sinus rhythmNormal ECGNo previous ECGs availableConfirmed by OKSANA LANDRUM MD, JOSEPH P ([id number]) on 05/05/2021 6:47:15 [facility] 12 [id number] 06:47:19Interface, External Ris In - 05/05/2021 6:47 AM CDTVentricular Rate 91 BPMAtrial Rate 91 BPMP-R Interval 126 msQRS Duration 78 msQ-T Interval 352 msQTC Calculation(Bazett) 432 msP [place] 44 degreesR [place] 28 degreesT [place] 39 degreesNormal sinus rhythmNormal ECGNo previous ECGs availableConfirmed by MD BELLAMY JOSEPH P ([id number]) on 05/05/2021 6:47:15 [place] [facility] [id number] 06:17:00 Test Item Value Reference Range Interpretation Comments ABO Grouping (test code = 2588) O Rh Factor (test code = 2589) POS [facility], [id number] 06:17:00 Test Item Value Reference Range Interpretation Comments ABO Grouping (test code = 2588) O Rh Factor (test code = 2589) POS [facility], [id number] 06:17:00 Test Item Value Reference Range Interpretation Comments ABO Grouping (test code = 2588) O Rh Factor (test code = 2589) POS [facility], [id number] 06:17:00 Test Item Value Reference Range Interpretation Comments ABO Grouping (test code = 2588) O Rh Factor (test code = 2589) POS [facility] automated ([facility]) 2021-05-05 05:01:00 Test Item Value Reference Range Interpretation Comments ABO/RH AUTOMATED (BEAKER) (test O POSITIVE code = 2260) Ab Scrn (test code = 890-4) NEGATIVE [facility] automated ([facility]) 2021-05-05 05:01:00 Test Item Value Reference Range Interpretation Comments ABO/RH AUTOMATED (BEAKER) (test O POSITIVE code = 2260) Ab Scrn (test code = 890-4) [facility]GATIVE [facility] automated ([facility]) 2021-05-05 05:01:00 Test Item Value Reference Range Interpretation Comments ABO/RH AUTOMATED (BEAKER) (test O POSITIVE code = 2260) Ab Scrn (test code = 890-4) NEGATIVE [facility] automated ([facility]) 2021-05-05 05:01:00 Test Item Value Reference Range Interpretation Comments ABO/RH AUTOMATED (BEAKER) (test O POSITIVE code = 2260) Ab Scrn (test code = 890-4) NEGATIVE [facility]PT/[id number] 04:35:00 Test Item Value Reference Interpretation Comments Range Protime (test code = 13.7 See_Comment [Autom ated 5902-2) message] The system which generated this result transmitted reference range : 11.9 - 14.2 seconds. The reference range was not used to interpret this result as normal/abnormal . INR (test code = 1.07 See_Comment [Automated [employer]1-6) message] The system which generated this result [...] valves. Lab Interpretation Normal (test code = 77371-3) [facility]/[id number] 04:35:00 Test Item Value Reference Interpretation Comments Range Protime (test code = 13.7 See_Comment [Autom ated 5902-2) message] The system which generated this result transmitted reference range : 11.9 - 14.2 seconds. The reference range was not used to interpret this result as normal/abnormal . INR (test code = 1.07 See_Comment [Automated [employer]1-6) message] The system which generated this result [...] valves. Lab Interpretation Normal (test code = 28365-6) [facility]/[id number] 04:35:00 Test Item Value Reference Interpretation Comments [...] valves. Lab Interpretation Normal (test code = 88272-4) [facility]/[id number] 04:35:00 Test Item Value Reference Interpretation Comments [...] valves. Lab Interpretation Normal (test code = 94072-1) [facility] CenterPROTHROMBIN TIME/[id number] 04:35:00 Test Item Value Reference Range Interpretation Comments PROTIME (BEAKER) 13.7 seconds 11.9-14.2 (test code = 759) INR (BEAKER) (test 1.07 See_Comment [Automat ed message] code = 370) The system [employer] generated this result transmitted ref erence range: <=5.90. The reference range was not used to int erpret this result as normal/abnormal . RECOMMENDED COUMADIN/WARFARIN INR THERAPY RANGESSTANDARD DOSE: 2.0 - 3.0 Includes: PROPHYLAXIS forvenous thrombosis, systemic embolization; TREATMENT for venous thrombosis and/or pulmonary embolus.HIGH RISK: Target INR is 2.5-3.5 for patients with mechanical heart valves.High Sensitivity Troponin [id number] 01:56:00 Test Item Value Reference Range Interpretation Comments Troponin I HS <4 See_Comment [Automated (test code = message] The 84685-7) system which generated this result transmitted reference range : <=17 pg/ml. The reference range was not used to interpret this result as normal/abnormal . TORRES (test code = Loader Demolder ID - TORRES) DBThe [employer] DEVELOPER STAT High Sensitivity Troponin-I results should be used in conjunction with other diagnostic information such as ECG, clinical observations and information, and patient symptoms to aid in the diagnosis of [place]. Lab Interpretation Normal (test code = 12956-6) [facility] Center[facility] Troponin [id number] 01:56:00 Test Item Value Reference Range Interpretation Comments Troponin I HS <4 See_Comment [Automated (test code = message] The [employer]) system which generated this result transmitted reference range : <=17 pg/ml. The reference range was not used to interpret this result as normal/abnormal . TORRES (test code = Loader Demolder ID - TORRES) DBThe [employer]EL[employer] STAT High Sensitivity Troponin-I results should be used in conjunction with other diagnostic information such as ECG, clinical observations and information, and patient symptoms to aid in the diagnosis of [place]. Lab Interpretation Normal (test code = 32006-8) [facility] Troponin [id number] 01:56:00 Test Item Value Reference Range Interpretation Comments Troponin I HS <4 See_Comment [Automated (test code = message] The [employer]) system which generated this result transmitted reference range : <=17 pg/ml. The reference range was not used to interpret this result as normal/abnormal . TORRES (test code = Loader Demolder ID - TORRES) DBThe ORACLE ADF DEVELOPER STAT High Sensitivity Troponin-I results should be used in conjunction with other diagnostic information such as ECG, clinical observations and information, and patient symptoms to aid in the diagnosis of [place]. Lab Interpretation Normal (test code = 48445-3) [facility] [id number] 01:56:00 Test Item Value Reference Range Interpretation Comments Troponin I HS <4 See_Comment [Automated (test code = message] The 57720-3) system which generated this result transmitted reference range : <=17 pg/ml. The reference range was not used to interpret this result as normal/abnormal . TORRES (test code = Loader Demolder ID - TORRES) DBThe ORACLE ADF DEVELOPER STAT High Sensitivity Troponin-I results should be used in conjunction with other diagnostic information such as ECG, clinical observations and information, and patient symptoms to aid in the diagnosis of [place]. Lab Interpretation Normal (test code = 23150-5) [facility] TROPONIN [id number] 01:56:00 Test Item Value Reference Range Interpretation Comments HIGH SENSITIVITY < pg/ml See_Comment [Automated message] TROPONIN I (test code = The system which 7449037) generated this result transmitted ref erence range: <=17. Th e reference range was not used to interpr et this result as normal/abnormal . Loader Demolder ID - DBThe ORACLE ADF DEVELOPER STAT High Sensitivity Troponin-I results should be used in conjunctionwith other diagnostic information such as ECG, clinical observations and information, and patient symptoms to aid in the diagnosis of [place].Ketones, [id number] 01:40:00 Test Item Value Reference Range Interpretation Comments Ketones, Blood (test code = 1103) 0.4 mmol/L <0.4 H Lab Interpretation (test code = Abnormal 62351-2) [facility], [id number] 01:40:00 Test Item Value Reference Range Interpretation Comments Ketones, Blood (test code = 1103) 0.4 mmol/L <0.4 H Lab Interpretation (test code = Abnormal 64575-7) [facility], [id number] 01:40:00 Test Item Value Reference Range Interpretation Comments Ketones, Blood (test code = 1103) 0.4 mmol/L <0.4 H Lab Interpretation (test code = Abnormal 68657-8) [facility], [id number] 01:40:00 Test Item Value Reference Range Interpretation Comments Ketones, Blood (test code = 1103) 0.4 mmol/L <0.4 H Lab Interpretation (test code = Abnormal 15649-9) [facility] [id number] 01:40:00 Test Item Value Reference Range Interpretation Comments KETONES, BLOOD (BEAKER) (test code 0.4 mmol/L <0.4 H = 1103) SARS-CoV2/RT-PCR (Asymptomatic ONLY)2021-05-05 01:30:00 Test Item Value Reference Interpretation Comments Range SARS-COV2/RT-PCR Negative Negative The SARS-Co V-2 (test code = target nucleic 03011-0) acids are not detected in thi s [...] revoked sooner. Fact Sheet for Healthcare Providers: https://www.AllPeers/Documents/Xp ert%20Xpress%20SAR S%20CoV-2/Fact%20S heets/302-3802%20S ARS-COV-2%20HEALTH CARE%20PROVIDERS%2 0FACT%20SHEET.pdf Fact Sheet for Healthcare Patients: https://www.[employer]/Documents/Xp ert%20Xpress%20SAR S%20CoV-2/Fact%20S heets/302-3801%20S ARS-COV-2%20PATIEN T%20FACT%20SHEET.p df Lab Interpretation Normal (test code = 19447-5) [facility]2021-05-05 01:30:00 Test Item Value Reference Interpretation Comments Range SARS-COV2/RT-PCR Negative Negative The SARS-Co V-2 (test code = target nucleic 78428-0) acids are not detected in thi s [...] revoked sooner. Fact Sheet for Healthcare Providers: https://www.[employer]/Documents/Xp ert%20Xpress%20SAR S%20CoV-2/Fact%20S heets/302-3802%20S ARS-COV-2%20HEALTH CARE%20PROVIDERS%2 0FACT%20SHEET.pdf Fact Sheet for Healthcare Patients: https://www.[employer]/Documents/Xp ert%20Xpress%20SAR S%20CoV-2/Fact%20S heets/302-3801%20S ARS-COV-2%20PATIEN T%20FACT%20SHEET.p df Lab Interpretation Normal (test code = 19352-9) [facility]omatic ONLY[facility]2021-05-05 01:30:00 Test Item Value Reference Interpretation Comments Range SARS-COV2/RT-PCR Negative Negative The SARS-Co V-2 (test code = target nucleic 46534-4) acids are not detected in thi s [...] revoked sooner. Fact Sheet for Healthcare Providers: https://www.[employer]/Documents/Xp ert%20Xpress%20SAR S%20CoV-2/Fact%20S heets/302-3802%20S ARS-COV-2%20HEALTH CARE%20PROVIDERS%2 0FACT%20SHEET.pdf Fact Sheet for Healthcare Patients: https://www.[employer]/Documents/Xp ert%20Xpress%20SAR S%20CoV-2/Fact%20S heets/302-3801%20S ARS-COV-2%20PATIEN T%20FACT%20SHEET.p df Lab Interpretation Normal (test code = 23453-5) [facility]omatic ONLY)2021-05-05 01:30:00 Test Item Value Reference Interpretation Comments Range SARS-COV2/RT-PCR Negative Negative The SARS-Co V-2 (test code = target nucleic 07571-9) acids are not detected in thi s [...] revoked sooner. Fact Sheet for Healthcare Providers: https://www.[employer]/Documents/Xp ert%20Xpress%20SAR S%20CoV-2/Fact%20S heets/302-3802%20S ARS-COV-2%20HEALTH CARE%20PROVIDERS%2 0FACT%20SHEET.pdf Fact Sheet for Healthcare Patients: https://www.[employer]/Documents/Xp ert%20Xpress%20SAR S%20CoV-2/Fact%20S heets/302-3801%20S ARS-COV-2%20PATIEN T%20FACT%20SHEET.p df Lab Interpretation Normal (test code = 88975-4) [facility])2021-05-05 01:30:00 Test Item Value Reference Range Interpretation Comments SARS-COV2/RT-PCR Negative Negative The SARS-Co V-2 target (test code = nucleic acids a re not 3752712) detected in thi s specimen. Negative result [...] revoked sooner. Fact Sheet for Healthcare Providers: https://www.[employer]/Documents/Xpert%20Xpress%20SARS%20CoV-2/Fact%20Sheets/3023802%20SARS-COV -2%20HEALTHCARE%20PROVIDERS%20FACT%20SHEET.pdf Fact Sheet for Healthcare Patients: https://www.[employer]/Documents/Xpert %20Xpress%20SARS%20CoV-2/Fact%20Sheets/3023801%12LDPP-CSB-0%20PATIENT%20FACT%20 SHEET.pdfBlood gas, [id number] 01:22:00 Test Item Value Reference Range Interpretation Comments pH, Niranjan (test code = 7.35 7.32-7.42 2026-6) pCO2, Niranjan (test code = 39 See_Comment L [Aut omated 755) message] The sy stem which generated this result transmitted reference range : 41 - 51 mm Hg. The reference range was not used to interpret this result as normal/abnormal . pO2, Nrianjan (test code = 59 See_Comment H [Auto mated 3255-2) message] The sy stem which generated this result transmitted reference range : 25 - 40 mm Hg. The reference range was not used to interpret this result as normal/abnormal . O2 Sat, Niranjan (test code 89.4 % 40-70 H = 2711-0) HCO3, Niranjan (test code = 21 mmol/L 21- 73453-4) Base Excess, Niranjan (test -4.5 mmol/L -2-3 L code = 1927-3) Patient Temperature 37.0 (test code = 8310-5) FIO2 (test code = 1819) 21 Lab Interpretation Abnormal (test code = 08337-9) [facility] gas, [id number] 01:22:00 Test Item Value Reference Range Interpretation [...] Niranjan (test code = 21 mmol/L 21-29 79603-3) Base Excess, Niranjan (test -4.5 mmol/L -2-3 L code = 1927-3) Patient Temperature 37.0 (test code = 8310-5) FIO2 (test code = 1819) 21 Lab Interpretation Abnormal (test code = 22598-7) [facility] gas, [id number] 01:22:00 Test Item Value Reference Range Interpretation [...] Niranjan (test code = 21 mmol/L 21-29 48382-3) Base Excess, Niranjan (test -4.5 mmol/L -2-3 L code = 1927-3) Patient Temperature 37.0 (test code = 8310-5) FIO2 (test code = 1819) 21 Lab Interpretation Abnormal (test code = 59237-6) [facility] gas, [id number] 01:22:00 Test Item Value Reference Range Interpretation [...] Niranjan (test code = 21 mmol/L 21-29 21051-1) Base Excess, Niranjan (test -4.5 mmol/L -2-3 L code = 1927-3) Patient Temperature 37.0 (test code = 8310-5) FIO2 (test code = 1819) 21 Lab Interpretation Abnormal (test code = 54199-1) [facility] GAS, [id number] 01:22:00 Test Item Value Reference Range Interpretation [...] (BEAKER) (test code = 1819) 21.0 ECG/EKG [id number] 23:15:Cherie Guerra MD 05/05/2021 2:11 AMECG/EKG Interpretation Date/Time: 05/04/2021 11:26 PMPerformed by: Cherie Faustin MDAuthorized by: Cherie Faustin MD The ECG was interpreted by ED physician. The ECG is interpreted as sinus rhythm. Rate is normal rate. Heart rate is 91 BPM.ST segments normal. T-wave inversion in lead(s) V1 and V2. Clinical Impression: normal ECGCH[facility] HospitalECG/EKG Blaqrrwaldgbnt6526-82-01 23:15:Cherie Guerra MD 05/05/2021 2:11 AMECG/EKG Interpretation Date/Time: 05/04/2021 11:26 PMPerformed by: Cherie Faustin MDAuthorized by: Cherie Faustin MD The ECG was interpreted by ED physician. The ECG is interpreted as sinus rhythm. Rate is normal rate. Heart rate is 91 BPM.ST segments normal. T-wave inversion in lead(s) V1 and V2. Clinical Impression: normal ECGCH[facility] HospitalECG/EKG Knzvdshivqfhfi3131-73-44 23:15:Cherie Guerra MD 05/05/2021 2:11 AMECG/EKG Interpretation Date/Time: 05/04/2021 11:26 PMPerformed by: Cherie Faustin MDAuthorized by: Cherie Faustin MD The ECG was interpreted by ED physician. The ECG is interpreted as sinus rhythm. Rate is normal rate. Heart rate is 91 BPM.ST segments normal. T-wave inversion in lead(s) V1 and V2. Clinical Impression: normal ECGCH[facility] HospitalECG/EKG Trlozdojosswrf0028-01-74 23:15:Cherie Guerra MD 05/05/2021 2:11 AMECG/EKG Interpretation Date/Time: 05/04/2021 11:26 PMPerformed by: Cherie Faustin MDAuthorized by: Cherie Faustin MD The ECG was interpreted by ED physician. The ECG is interpreted as sinus rhythm. Rate is normal rate. Heart rate is 91 BPM.ST segments normal. T-wave inversion in lead(s) V1 and V2. Clinical Impression: normal ECGSt. John's Health CenterHEPATIC FUNCTION [id number] 22:01:00 Test Item Value Reference Range Interpretation [...] Specimen moderately (test code = 347) hemolyzed Loader Demolder ID - [id number] 21:53:00 Test Item Value Reference Range Interpretation Comments Amylase (test code = 143 U/L 25-125 H Specime n 1798-8) markedly hemolyzed TORRES (test code = TORRES) Loader Demolder ID - DB Lab Interpretation Abnormal (test code = 39191-8) [facility] CenterLipase2021-08-23 21:53:00 Test Item Value Reference Range Interpretation Comments Lipase (test code = 3040-3) 97 U/L 8-78 H TORRES (test code = TORRES) Loader Demolder ID - DB Lab Interpretation (test Abnormal code = 95416-6) [facility] CenterAmylase2021-08-23 21:53:00 Test Item Value Reference Range Interpretation Comments Amylase (test code = 143 U/L 25-125 H Specime n 1798-8) markedly hemolyzed TORRES (test code = TORRES) Loader Demolder ID - DB Lab Interpretation Abnormal (test code = 19532-0) [facility] Center[facility]2021-08-23 21:53:00 Test Item Value Reference Range Interpretation Comments Lipase (test code = 3040-3) 97 U/L 8-78 H TORRES (test code = TORRES) Loader Demolder ID - DB Lab Interpretation (test Abnormal code = 11138-7) [facility] CenterAmylase2021-08-23 21:53:00 Test Item Value Reference Range Interpretation Comments Amylase (test code = 143 U/L 25-125 H Specime n 1798-8) markedly hemolyzed TORRES (test code = TORRES) Loader Demolder ID - DB Lab Interpretation Abnormal (test code = 91506-3) [facility] Center[facility]2021-08-23 21:53:00 Test Item Value Reference Range Interpretation Comments Lipase (test code = 3040-3) 97 U/L 8-78 H TORRES (test code = TORRES) Loader Demolder ID - DB Lab Interpretation (test Abnormal code = 16690-0) [facility] CenterAmylase2021-08-23 21:53:00 Test Item Value Reference Range Interpretation Comments Amylase (test code = 143 U/L 25-125 H Specime n 1798-8) markedly hemolyzed TORERS (test code = TORRES) Loader Demolder ID - DB Lab Interpretation Abnormal (test code = 66860-5) [facility] Center[facility]2021-08-23 21:53:00 Test Item Value Reference Range Interpretation Comments Lipase (test code = 3040-3) 97 U/L 8-78 H TORRES (test code = TORRES) Loader Demolder ID - DB Lab Interpretation (test Abnormal code = 39017-3) [facility] CenterBASIC METABOLIC [id number] 21:53:00 Test Item Value Reference Range Interpretation [...] S NOT APPLICABLE FOR DIALYSIS PATIEN TS. Loader Demolder ID - [id number] 21:53:00 Test Item Value Reference Range Interpretation Comments AMYLASE (BEAKER) (test 143 U/L 25-125 H Speci men markedly code = 349) hemolyzed Loader Demolder ID - [id number] 21:53:00 Test Item Value Reference Range Interpretation Comments LIPASE (BEAKER) (test code = 749) 97 U/L 8-78 H Loader Demolder ID - DBCBC W/PLT COUNT & AUTO [id number] 19:51:00 Test Item Value Reference Range Interpretation [...] PERCENT (BEAKER) (test code = 2801) POC-Glucose [id number] 08:41:00 Test Item Value Reference Range Interpretation Comments POC-Glucose Meter (test 104 mg/dL 70-110 : TE STED AT [facility] code = 1538) [address] [place] [address], 7[address] 30: Loader Demolder/Techni aldo ID = [id number] for HUSSEIN LEMON Lab Interpretation (test Normal code = 32520-3) [facility]-Glucose [id number] 08:41:00 Test Item Value Reference Range Interpretation Comments POC-Glucose Meter (test 104 mg/dL 70-110 : TE STED AT [facility] code = 1538) [address] [place] [address], [address] 30: Loader Demolder/Techni aldo ID = [id number] for HUSSEIN LEMON Lab Interpretation (test Normal code = 01317-4) [facility]-Glucose [id number] 08:41:00 Test Item Value Reference Range Interpretation Comments POC-Glucose Meter (test 104 mg/dL 70-110 : TE STED AT [facility] code = 1538) [address] [facility], [address] 30: Loader Demolder/Techni aldo ID = [id number] for HUSSEIN LEMON Lab Interpretation (test Normal code = 50248-4) [facility]-Glucose [id number] 08:41:00 Test Item Value Reference Range Interpretation Comments POC-Glucose Meter (test 104 mg/dL 70-110 : TE STED AT [facility] code = 1538) [address] [facility], 770 30: Loader Demolder/Techni aldo ID = [id number] for HUSSEIN LEMON Lab Interpretation (test Normal code = 79772-3) [facility]-GLUCOSE [id number] 08:41:00 Test Item Value Reference Range Interpretation Comments POC-GLUCOSE METER 104 mg/dL 70-110 : TESTED A T [facility] 6720 (BEAKER) (test code = [facility], 1538) [address]: Loader Demolder/Techni aldo ID = [id number] for HUSSEIN DAVID Comprehensive metabolic [id number] 06:49:00 Test Item Value Reference Range Interpretation Comments Protein, Total (test 6.8 See_Comment [Autom ated code = 2885-2) message] The system which generated this result transmit lane reference range : 6.0 - 8.3 gm/dL . The reference range was not u sed to interpret th is result as normal/abnormal . Albumin (test code = 3.5 g/dL 3.5-5 60729-9) Alkaline Phosphatase 44 U/L 40-150 (test code = 6768-6) Total Bilirubin (test 0.3 mg/dL 0.2-1.2 code = 1975-2) Sodium (test code = 139 meq/L 342-750 5657-2) Potassium (test code 3.8 meq/L 3.5-5.1 = 2823-3) Chloride (test code = 104 meq/L 98-107 2075-0) CO2 (test code = 27 meq/L 22-29 8-9) BUN (test code = 12 mg/dL 7-21 3094-0) Creatinine (test code 1.05 mg/dL 0.57-1.25 = 2160-0) Glucose (test code = 79 mg/dL 70-105 2345-7) Calcium (test code = 8.4 mg/dL 8.4-10.2 37374-0) AST (test code = 49 U/L 5-34 H 1920-8) ALT (test code = 41 U/L 6-55 1742-6) EGFR (test code = 52 mL/min/1.[address] [place] [address]-0) NOT ACCURATE CREATININE CLEARANCE IN PREDICTING GLOMERULAR FILTRATION RATE . ESTIMATED GFR I S NOT APPLICABLE FOR DIALYSIS PATIEN TORRES (test code = TORRES) Loader Demolder ID - HUMBLE M Lab Interpretation Abnormal (test code = 00533-6) [facility] CenterComprehensive metabolic [id number] 06:49:00 Test Item Value Reference Range Interpretation Comments Protein, Total (test 6.8 See_Comment [Autom ated code = 2885-2) message] The system which generated this result transmit lane reference range : 6.0 - 8.3 gm/dL . The reference range was not u sed to interpret th is result as normal/abnormal . Albumin (test code = 3.5 g/dL 3.5-5 99656-2) Alkaline Phosphatase 44 U/L 40-150 (test code = 6768-6) Total Bilirubin (test 0.3 mg/dL 0.2-1.2 code = 1974-2) Sodium (test code = 139 meq/L 737-067 5657-2) Potassium (test code 3.8 meq/L 3.5-5.1 = 2823-3) Chloride (test code = 104 meq/L 98-107 5-0) CO2 (test code = 27 meq/L 22-29 2027-9) BUN (test code = 12 mg/dL 7-21 3094-0) Creatinine (test code 1.05 mg/dL 0.57-1.25 = 2160-0) Glucose (test code = 79 mg/dL 70-105 2345-7) Calcium (test code = 8.4 mg/dL 8.4-10.2 00344-0) AST (test code = 49 U/L 5-34 H 1920-8) ALT (test code = 41 U/L 6-55 1742-6) EGFR (test code = 52 mL/min/1.[address] [place] [address]-3) NOT ACCURATE CREATININE CLEARANCE IN PREDICTING GLOMERULAR FILTRATION RATE . ESTIMATED GFR I S NOT APPLICABLE FOR DIALYSIS PATIEN TS. TORRES (test code = TORRES) Loader Demolder ID - HUMBLE M Lab Interpretation Abnormal (test code = 77053-3) [facility] CenterComprehensive metabolic [id number] 06:49:00 Test Item Value Reference Range Interpretation Comments Protein, Total (test 6.8 See_Comment [Autom ated code = 2885-2) message] The system which generated this result transmit lane reference range : 6.0 - 8.3 gm/dL . The reference range was not u sed to interpret th is result as normal/abnormal . Albumin (test code = 3.5 g/dL 3.5-5 17693-8) Alkaline Phosphatase 44 U/L 40-150 (test code = 6768-6) Total Bilirubin (test 0.3 mg/dL 0.2-1.2 code = 1974-2) Sodium (test code = 139 meq/L 298-240 6710-2) Potassium (test code 3.8 meq/L 3.5-5.1 = 2823-3) Chloride (test code = 104 meq/L 98-107 2075-0) CO2 (test code = 27 meq/L 22-29 8-9) BUN (test code = 12 mg/dL 7-21 3094-0) Creatinine (test code 1.05 mg/dL 0.57-1.25 = 2160-0) Glucose (test code = 79 mg/dL 70-105 2345-7) Calcium (test code = 8.4 mg/dL 8.4-10.2 73383-0) AST (test code = 49 U/L 5-34 H 1920-8) ALT (test code = 41 U/L 1742-6) EGFR (test code = 52 mL/min/1.[address] [place] [address]-6) NOT ACCURATE CREATININE CLEARANCE IN PREDICTING GLOMERULAR FILTRATION RATE . ESTIMATED GFR I S NOT APPLICABLE FOR DIALYSIS PATIEN TS. TORRES (test code = TORRES) Loader Demolder ID - HUMBLE M Lab Interpretation Abnormal (test code = 59980-5) [facility]Com[facility] [id number] 06:49:00 Test Item Value Reference Range Interpretation Comments Protein, Total (test 6.8 See_Comment [Autom ated code = 2885-2) message] The system which generated this result transmit lane reference range : 6.0 - 8.3 gm/dL . The reference range was not u sed to interpret th is result as normal/abnormal . Albumin (test code = 3.5 g/dL 3.5-5 67052-6) Alkaline Phosphatase 44 U/L 40-150 (test code = 6768-6) Total Bilirubin (test 0.3 mg/dL 0.2-1.2 code = 1975-2) Sodium (test code = 139 meq/L 285-519 1733-2) Potassium (test code 3.8 meq/L 3.5-5.1 = 2823-3) Chloride (test code = 104 meq/L 98-107 2075-0) CO2 (test code = 27 meq/L 22-29 2028-9) BUN (test code = 12 mg/dL 7-21 3094-0) Creatinine (test code 1.05 mg/dL 0.57-1.25 = 2160-0) Glucose (test code = 79 mg/dL 70-105 2345-7) Calcium (test code = 8.4 mg/dL 8.4-10.2 94362-1) AST (test code = 49 U/L 5-34 H 1920-8) ALT (test code = 41 U/L 6-55 1742-6) EGFR (test code = 52 mL/min/1.[place] [address]-9) NOT ACCURATE CREATININE CLEARANCE IN PREDICTING GLOMERULAR FILTRATION RATE . ESTIMATED GFR I S NOT APPLICABLE FOR DIALYSIS PATIEN TS. TORRES (test code = TORRES) Loader Demolder ID - HUMBLE M Lab Interpretation Abnormal (test code = 06416-9) [facility] CenterCOMPREHENSIVE METABOLIC [id number] 06:49:00 Test Item Value Reference Range Interpretation [...] S NOT APPLICABLE FOR DIALYSIS PATIEN TS. Loader Demolder ID - HUMBLE MPOCT-GLUCOSE [id number] 16:54:00 Test Item Value Reference Range Interpretation Comments POC-GLUCOSE METER 171 mg/dL 70-110 H : TESTED A T [facility] 6720 (BEAKER) (test code = [place], 1538) [address]: Loader Demolder/Techni aldo ID = [id number] for ALBINO GONZALEZ Hemoglobin [id number] 15:22:00 Test Item Value Reference Range Interpretation Comments Hemoglobin A1C (test code = 4548-4) 6.2 % 4.3-6.1 H Lab Interpretation (test code = Abnormal 84456-2) [facility] CenterHemoglobin [id number] 15:22:00 Test Item Value Reference Range Interpretation Comments Hemoglobin A1C (test code = 4548-4) 6.2 % 4.3-6.1 H Lab Interpretation (test code = Abnormal 54366-4) [facility] CenterHemoglobin [id number] 15:22:00 Test Item Value Reference Range Interpretation Comments Hemoglobin A1C (test code = 4548-4) 6.2 % 4.3-6.1 H Lab Interpretation (test code = Abnormal 34941-2) [facility] CenterHemoglobin [id number] 15:22:00 Test Item Value Reference Range Interpretation Comments Hemoglobin A1C (test code = 4548-4) 6.2 % 4.3-6.1 H Lab Interpretation (test code = Abnormal 13386-9) [facility] CenterHEMOGLOBIN [id number] 15:22:00 Test Item Value Reference Range Interpretation Comments HEMOGLOBIN A1C (BEAKER) (test code = 6.2 % 4.3-6.1 H 368) POCT-GLUCOSE [id number] 12:56:00 Test Item Value Reference Range Interpretation Comments POC-GLUCOSE METER 93 mg/dL 70-110 : Notified RN/MD: TESTED (ZONIAAKER) (test code = AT [facility] [address] [facility] 1538) [facility], [facility] 30: Loader Demolder/Techni alod ID = [id number] for Simm Arely gorman [place], [id number] 12:02:00Reason for exam:->[facility] : 1950 Sex: FFluoroscopic unit utilized for a procedure performed in the OR. No interpretation was requested. Refer to the operative report for findings. Refer to PACS for patient radiation dose information.FL Endoscopic Retrograde Djhiaqjtbmocbhglzkulkeqt8477-10-47 12:02:00Interface, External Ris In 03/10/2021 12:18 PM CDTFluoroscopic unit utilized for a procedure performed in the OR. No interpretation was requested. Refer to the operative report for findings. Referto PACS for patient radiation dose information.[facility] Endoscopic Retrograde Oeawpapzpsdnlqbmxvprixnp1651-08-28 12:02:00Interface, External Ris In 03/10/2021 12:18 PM CDTFluoroscopic unit utilized for a procedure performed in the OR. No interpretation was requested. Refer to the operative report for findings. Referto PACS for patient radiation dose information.[facility] Endoscopic Retrograde Uhqqxbfvgxntcmmhdeyfbetx5881-55-90 12:02:00Interface, External Ris In 03/10/2021 12:18 PM CDTFluoroscopic unit utilized for a procedure performed in the OR. No interpretation was requested. Refer to the operative report for findings. Referto PACS for patient radiation dose information.[facility] Endoscopic Retrograde Rpsvcdysffkezufrmscrnmax2027-40-36 12:02:00Interface, External Ris In 03/10/2021 12:18 PM CDTFluoroscopic unit utilized for a procedure performed in the OR. No interpretation was requested. Refer to the operative report for findings. Referto PACS for patient radiation dose information.[facility] CenterPOCT-GLUCOSE [id number] 09:27:00 Test Item Value Reference Range Interpretation Comments POC-GLUCOSE METER 74 mg/dL 70-110 : TESTED A T [facility] 67[address] ([facility]) (test code = [facility], 1538) [address]: Loader Demolder/Techni aldo ID = [id number] for ALBINO ROSS COMPREHENSIVE METABOLIC [id number] 05:49:00 Test Item Value Reference Range Interpretation Comments TOTAL PROTEIN 6.8 gm/dL 6.0-8.3 ([facility]) (test code = 770) ALBUMIN ([facility]) 3.5 g/dL 3.5-5.0 (test code = 1145) ALKALINE PHOSPHATASE 45 U/L 40-150 ([facility]) (test code = 346) BILIRUBIN TOTAL 0.3 [...] S NOT APPLICABLE FOR DIALYSIS PATIEN TS. Loader Demolder ID - [facility] (Hemogram only)2021-03-10 05:10:00 Test Item Value Reference Range Interpretation Comments WBC (test code = 6690-2) 9.1 See_Comment [A utomated message] The system [employer] generated this result transmitted ref erence range: 3.5 - 10 .5 K/L. The refe rence range was not u sed to interpret this result as normal/abnor mal. RBC (test code = 789-8) 3.57 See_Comment L [Au tomated message] The system [employer] generated this result transmitted ref erence range: 3.93 - 5 .22 M/L. The refe rence range was not u sed to interpret this result as normal/abnor mal. MCHC (test code = 786-4) 30.9 See_Comment L [A utomated message] The system [employer] generated this result transmitted ref erence range: [...] See_Comment [Aut omated message] 777-3) The system [employer] generated this result transmitted ref erence range: 150 - 45 0 K/CU MM. The referen ce range was not u sed to interpret this result as normal/abnor mal. MPV (test code = 9.3 fL 9.4-12.3 L 25550-8) nRBC (test code = 413) 0 See_Comment [Aut omated message] The system [employer] generated this result transmitted ref erence range: 0 - 0 /1 00 WBC. The refere nce range was not u sed to interpret this result as normal/abnor mal. Lab Interpretation (test Abnormal code = 16954-5) [facility] 05:10:00 Test Item Value Reference Range Interpretation Comments WBC (test code = 6690-2) 9.1 See_Comment [A utomated message] The system [employer] generated this result transmitted ref erence range: 3.5 - 10 .5 K/L. The refe rence range was not u sed to interpret this result as normal/abnor mal. RBC (test code = 789-8) 3.57 See_Comment L [Au tomated message] The system [employer] generated this result transmitted ref erence range: 3.93 - 5 .22 M/L. The refe rence range was not u sed to interpret this result as normal/abnor mal. MCHC (test code = 786-4) 30.9 See_Comment L [A utomated message] The system [employer] generated this result transmitted ref erence range: [...] See_Comment [Aut omated message] 777-3) The system [employer] generated this result transmitted ref erence range: 150 - 45 0 K/CU MM. The referen ce range was not u sed to interpret this result as normal/abnor mal. MPV (test code = 9.3 fL 9.4-12.3 L 57825-7) nRBC (test code = 413) 0 See_Comment [Aut omated message] The system [employer] generated this result transmitted ref erence range: 0 - 0 /1 00 WBC. The refere nce range was not u sed to interpret this result as normal/abnor mal. Lab Interpretation (test Abnormal code = 06639-7) [facility] 05:10:00 Test Item Value Reference Range Interpretation Comments WBC (test code = 6690-2) 9.1 See_Comment [A utomated message] The system [employer] generated this result transmitted ref erence range: 3.5 - 10 .5 K/L. The refe rence range was not u sed to interpret this result as normal/abnor mal. RBC (test code = 789-8) 3.57 See_Comment L [Au tomated message] The system [employer] generated this result transmitted ref erence range: 3.93 - 5 .22 M/L. The refe rence range was not u sed to interpret this result as normal/abnor mal. MCHC (test code = 786-4) 30.9 See_Comment L [A utomated message] The system [employer] generated this result transmitted ref erence range: [...] See_Comment [Aut omated message] 777-3) The system [employer] generated this result transmitted ref erence range: 150 - 45 0 K/CU MM. The referen ce range was not u sed to interpret this result as normal/abnor mal. MPV (test code = 9.3 fL 9.4-12.3 L 16359-4) nRBC (test code = 413) 0 See_Comment [Aut omated message] The system [employer] generated this result transmitted ref erence range: 0 - 0 /1 00 WBC. The refere nce range was not u sed to interpret this result as normal/abnor mal. Lab Interpretation (test Abnormal code = 43769-2) [facility] 05:10:00 Test Item Value Reference Range Interpretation Comments WBC (test code = 6690-2) 9.1 See_Comment [A utomated message] The system [employer] generated this result transmitted ref erence range: 3.5 - 10 .5 K/L. The refe rence range was not u sed to interpret this result as normal/abnor mal. RBC (test code = 789-8) 3.57 See_Comment L [Au tomated message] The system [employer] generated this result transmitted ref erence range: 3.93 - 5 .22 M/L. The refe rence range was not u sed to interpret this result as normal/abnor mal. MCHC (test code = 786-4) 30.9 See_Comment L [A utomated message] The system [employer] generated this result transmitted ref erence range: [...] See_Comment [Aut omated message] 777-3) The system [employer] generated this result transmitted ref erence range: 150 - 45 0 K/CU MM. The referen ce range was not u sed to interpret this result as normal/abnor mal. MPV (test code = 9.3 fL 9.4-12.3 L 05032-7) nRBC (test code = 413) 0 See_Comment [Aut omated message] The system [employer] generated this result transmitted ref erence range: 0 - 0 /1 00 WBC. The refere nce range was not u sed to interpret this result as normal/abnor mal. Lab Interpretation (test Abnormal code = 75215-3) [facility] (HEMOGRAM ONLY)2021-03-10 05:10:00 Test Item [...] 0-0 (BEAKER) (test code = 413) POCT-GLUCOSE [id number] 00:05:00 Test Item Value Reference Range Interpretation Comments POC-GLUCOSE METER 83 mg/dL 70-110 : TESTED A T [facility] 6720 ([facility]) (test code = [place], 1538) [address]904: Loader Demolder/Techni aldo ID = [id number] for BRENDA VENCES SARS-COV2/RT-PCR ([facility])2021-03-09 23:58:00 Test Item Value Reference Range Interpretation Comments SARS-COV2/RT-PCR (test Negative Not Detected, Negative, code = 8639603) See external report for linked test SARS-COV-2 PERFORMING LAB [facility] SHIV (test code = 7779548) Negative result for this test determines that [...] 564(g) of the Act.Fact Sheet for Healthcare Providers:https://www.[employer]/sites/default/files/product/documents/Fact_Shee v_BJ_Yohdbxabp_Pkfw_MPUS-HoC-5.pdfFact Sheet for Healthcare Patients:https://www.[employer]/sites/default/files/product/ documents/Gapi_Ydghy_Slwcujva_Bghv_SSTT-OpA-0.pdfPerforming Laboratory:[facility], [place] [address]HHQU-JMCESGU METER 2021-03-09 17:34:00 Test Item Value Reference Range Interpretation Comments POC-GLUCOSE METER 97 mg/dL 70-110 : TESTED A T [facility] 67[address] ([facility]) (test code = FORTUNATO Kaba [facility], 1538) [address]: Loader Demolder/Techni aldo ID = [id number] for ALBINO ROSS MR, ABDOMEN, [id number] 17:11:00Unlisted Reason for Exam - Click Yes and Enter Reason Below->NoPatient with hyperdense material seen in distal CBD [facility] : 1950 Sex: [...] hospital Verified Date/Time: 03/09/2021 17:11:18 Reading Location: [address] Transitional Reading Room MR abdomen without IV contrast [id number] 17:11:00 Interface, External Ris In - 03/09/2021 [...] Alyeport Verified Date/Time: 03/09/2021 17:11:18 Reading Location: [address] [facility] [id number] 17:11:00 Interface, External Ris In - 03/09/2021 [...] Alyeport Verified Date/Time: 03/09/2021 17:11:18 Reading Location: [facility] C013 [facility]itional [facility] [id number] 17:11:00 Interface, External Ris In - 03/09/2021 [...] Verified Date/Time: 03/09/2021 17:11:18 Reading Location: [address] [facility] [id number] 17:11:00 Interface, External Ris In - 03/09/2021 [...] Verified Date/Time: 03/09/2021 17:11:18 Reading Location: [address] Transitional Reading [facility] [id number] 12:41:00 Test Item Value Reference Range Interpretation Comments POC-GLUCOSE METER 92 mg/dL 70-110 : TESTED A T [facility] [address] (BEAKER) (test code = FOR[place]UNATO Kaba [facility], 1538) [address]: Loader Demolder/Techni aldo ID = [id number] for TEZE NO, ALBINO Urinalysis w/Microscopic + Reflex to [id number] 11:21:00 Test Item Value Reference Range Interpretation Comments Color, UA (test code Light Yellow = 5778-6) Clarity, UA (test Clear code = 5767-9) Specific [place], UA 1.033 1.001-1.035 (test code = 5811-5) pH, UA (test code = 5.5 5.0-8.0 5803-2) Protein, UA (test Negative Negative code = 62042-3) Glucose, UA (test Negative Negative code = 365) Ketones, UA (test Negative Negative code = 2514-8) Bilirubin, UA (test Negative Negative code = 89605-7) Blood, UA (test code Trace Negative A = 22942-6) Nitrite, UA (test Negative Negative code = 5802-4) Leukocytes, UA (test Negative Negative code = 5799-2) Urobilinogen, UA 0.2 mg/dL 0.2-1 (test code = 09781-9) RBC, UA (test code = 2 See_Comment [Autom ated 38619-6) message] The system which generated this result [...] Bacteria, UA (test None Seen code = 59152-0) Mucus (test code = Rare 8247-9) Squam Epithel, UA 1 See_Comment [Automate d (test code = 12503-0) messag e] The system which generated this result transmit lane reference range : /HPF. The reference range was not used to interpret this result as normal/abnormal . Crystals, Urine (test None Seen code = 89128-0) Specimen Source (test code = 2795) TORRES (test code = TORRES) Loader Demolder ID - [auto]Loader Demolder ID - tech Lab Interpretation Abnormal (test code = 94819-9) [facility] Reflex to Culture 2021-03-09 11:21:00 Test Item Value Reference Range Interpretation Comments Color, UA (test code Light Yellow = 5778-6) Clarity, UA (test Clear code = 5767-9) Specific [place], UA 1.033 1.001-1.035 (test code = 5811-5) pH, UA (test code = 5.5 5.0-8.0 5803-2) Protein, UA (test Negative Negative code = 89761-9) Glucose, UA (test Negative Negative code = 365) Ketones, UA (test Negative Negative code = 2514-8) Bilirubin, UA (test Negative Negative code = 64004-0) Blood, UA (test code Trace Negative A = 49499-2) Nitrite, UA (test Negative Negative code = 5802-4) Leukocytes, UA (test Negative Negative code = 5799-2) Urobilinogen, UA 0.2 mg/dL 0.2-1 (test code = 35912-9) RBC, UA (test code = 2 See_Comment [Autom ated 47234-7) message] The system which generated this result [...] Bacteria, UA (test None Seen code = 11614-0) Mucus (test code = Rare 8247-9) Squam Epithel, UA 1 See_Comment [Automate d (test code = 82019-5) messag e] The system which generated this result transmit lane reference range : /HPF. The reference range was not used to interpret this result as normal/abnormal . Crystals, Urine (test None Seen code = 97017-2) Specimen Source (test code = 2795) TORRES (test code = TORRES) Loader Demolder ID - [auto]Loader Demolder ID - tech Lab Interpretation Abnormal (test code = 01283-2) [facility] + Reflex to Culture 2021-03-09 11:21:00 Test Item Value Reference Range Interpretation Comments Color, UA (test code Light Yellow = 5778-6) Clarity, UA (test Clear code = 5767-9) Specific [place], UA 1.033 1.001-1.035 (test code = 5811-5) pH, UA (test code = 5.5 5.0-8.0 5803-2) Protein, UA (test Negative Negative code = 59413-9) Glucose, UA (test Negative Negative code = 365) Ketones, UA (test Negative Negative code = 2514-8) Bilirubin, UA (test Negative Negative code = 97687-3) Blood, UA (test code Trace Negative A = 20695-7) Nitrite, UA (test Negative Negative code = 5802-4) Leukocytes, UA (test Negative Negative code = 5799-2) Urobilinogen, UA 0.2 mg/dL 0.2-1 (test code = 59021-2) RBC, UA (test code = 2 See_Comment [Autom ated 29845-0) message] The system which generated this result [...] Bacteria, UA (test None Seen code = 50925-4) Mucus (test code = Rare 8247-9) Squam Epithel, UA 1 See_Comment [Automate d (test code = 31287-9) messag e] The system which generated this result transmit lane reference range : /HPF. The reference range was not used to interpret this result as normal/abnormal . Crystals, Urine (test None Seen code = 41442-5) Specimen Source (test code = 2795) TORRES (test code = TORRES) Loader Demolder ID - [auto]Loader Demolder ID - tech Lab Interpretation Abnormal (test code = 77978-4) [facility] + Reflex to Culture 2021-03-09 11:21:00 Test Item Value Reference Range Interpretation Comments Color, UA (test code Light Yellow = 5778-6) Clarity, UA (test Clear code = 5767-9) Specific [place], UA 1.033 1.001-1.035 (test code = 5811-5) pH, UA (test code = 5.5 5.0-8.0 5803-2) Protein, UA (test Negative Negative code = 64124-2) Glucose, UA (test Negative Negative code = 365) Ketones, UA (test Negative Negative code = 2514-8) Bilirubin, UA (test Negative Negative code = 55381-4) Blood, UA (test code Trace Negative A = 16519-6) Nitrite, UA (test Negative Negative code = 5802-4) Leukocytes, UA (test Negative Negative code = 5799-2) Urobilinogen, UA 0.2 mg/dL 0.2-1 (test code = 44933-5) RBC, UA (test code = 2 See_Comment [Autom ated 34209-1) message] The system which generated this result [...] Bacteria, UA (test None Seen code = 34763-2) Mucus (test code = Rare 8247-9) Squam Epithel, UA 1 See_Comment [Automate d (test code = 04180-5) messag e] The system which generated this result transmit lane reference range : /HPF. The reference range was not used to interpret this result as normal/abnormal . Crystals, Urine (test None Seen code = 70468-6) Specimen Source (test code = 2795) TORRES (test code = TORRES) Loader Demolder ID - [auto]Loader Demolder ID - tech Lab Interpretation Abnormal (test code = 94684-4) [facility]LEX URINE [id number] 11:21:00 Test Item Value Reference Range Interpretation [...] = 1521) SOURCE(BEAKER) (test code = 2795) Loader Demolder ID - [auto]Loader Demolder ID - techHEMOGLOBIN [id number] 10:22:00 Test Item Value Reference Range Interpretation Comments HEMOGLOBIN A1C (BEAKER) (test code = 6.1 % 4.3-6.1 368) [id number] 06:48:00 Test Item Value Reference Range Interpretation Comments Magnesium (test code = 2.1 mg/dL 1.6-2.6 93519-8) TORRES (test code = TORRES) Loader Demolder ID - ELVIN W Lab Interpretation (test Normal code = 02802-8) [facility]21-[facility] 06:48:00 Test Item Value Reference Range Interpretation Comments Magnesium (test code = 2.1 mg/dL 1.6-2.6 41909-2) TORRES (test code = TORRES) Loader Demolder ID - ELVIN W Lab Interpretation (test Normal code = 00341-0) [facility]21-06-28 06:48:00 Test Item Value Reference Range Interpretation Comments Magnesium (test code = 2.1 mg/dL 1.6-2.6 96863-3) TORRES (test code = TORRES) Loader Demolder ID - ELVIN W Lab Interpretation (test Normal code = 15195-5) [facility]21-[facility]-28 06:48:00 Test Item Value Reference Range Interpretation Comments Magnesium (test code = 2.1 mg/dL 1.6-2.6 77921-9) TORRES (test code = TORRES) Loader Demolder ID - ELVIN W Lab Interpretation (test Normal code = 43433-6) [facility]OLIC [id number] 06:48:00 Test Item Value Reference Range Interpretation [...] 697) EGFR (BEAKER) (test 44 mL/min/1.73 ESTIMA LAEN GFR IS code = 1092) sq m NOT ACCURATE CREATININE CLEARANCE IN PREDICTING GLOMERULAR FILTRATION RATE . ESTIMATED GFR I S NOT APPLICABLE FOR DIALYSIS PATIEN TS. Loader Demolder ID - ELVIN [id number] 06:48:00 Test Item Value Reference Range Interpretation Comments MAGNESIUM (BEAKER) (test code = 2.1 mg/dL 1.6-2.6 627) Loader Demolder ID - ELVIN WHEPATIC FUNCTION [id number] 06:48:00 Test Item Value Reference Range Interpretation [...] (test code = 30 U/L 6-55 347) Loader Demolder ID - ELVIN WPROTHROMBIN TIME/[id number] 06:32:00 Test Item Value Reference Range Interpretation Comments PROTIME (BEAKER) 12.9 seconds 11.9-14.2 (test code = 759) INR (BEAKER) (test 0.99 See_Comment [Automat ed message] code = 370) The system [employer] generated this result transmitted ref erence range: [...] code = 2801) MRI Brain wo contrast [id number] 16:25:00Patient Name: RIYA BLAKELY TRANDOB: 1950. Age: 67 years. Gender: Female.MR: [id number]. Location: [facility]. Provider: Hollie Osorio MD.EXAM: Brain wo [...] intracranial abnormality. Mild chronicmicroangiopathic ischemic gliosis. SL: [id number] by: Finesse Dias MDDictated Date/time: 0 02/08/18 17:31Electronically Signed by: Finesse Dias MD 02/08/1817:40FINALREPORTUnJordan [facility]iciansG[facility] Brain w/wo contrast [id number] 13:39:00 Test Item Value Reference Range Interpretation Comments Brain w/wo contrast MRI Cancel Reason: Exam (test code = Brain w/wo Replaced contrast MRI) [facility]"
[2021-12-24] MEDS ORDERED: MORPHINE 4 MG/ML SYR ONE (14:53)
[2021-12-24] MEDS ORDERED: ONDANSETRON 4 MG/2 ML VIAL ONE (14:53)
[2021-12-24 15:33] LABS: Absolute Lymphocytes (CBC) 0.8 K/uL (0.7-4.9); Hematocrit 35.3 % (36.0-45.0); Lymphocytes % 6.6 % (15.3-44.8); MPV 6.8 fL (7.6-11.3); RBC Red Blood Cell Count 3.87 M/uL (3.86-4.86)
[2021-12-24 15:48] LABS: Albumin 3.6 g/dL (3.4-5.0); Bilirubin Total 0.2 mg/dL (0.2-1.0); Potassium 4.3 mmol/L (3.5-5.1); Protein, Total 8.2 g/dL (6.4-8.2)
[2021-12-24 16:10] LABS: Blood Morphology Comment NOT SEEN (NOT SEEN); Platelet Estimate ADEQ; White Blood Cell Scan OK (OK)
--- NOTE | 2021-12-24 16:25 | RAD REPORT ---
EXAM DESCRIPTION: CT - Abdomen Pelvis W Contrast - 12/24/2021 4:11 pm CLINICAL HISTORY: Abdominal pain/left lower quadrant pain COMPARISON: October 2021 and 2020 TECHNIQUE: Computed axial tomography of the abdomen pelvis was obtained. 100 cc Isovue-300 was admin istered intravenously. Oral contrast was not requested which limits evaluation of bowel. All CT scans are performed using dose optimization technique as appropriate and may include automated exposure control or mA/KV adjustment according to patient size. FINDINGS: Chronic pneumobilia. Dilatation of the common bile duct without significant change. Cholec ystectomy. Liver, spleen, pancreas, adrenals and kidneys appear unremarkable. No evidence of diverticulitis. Hysterectomy. Cement has been placed into an old L1 vertebral body fracture IMPRESSION: No acute abnormality is displayed
[2021-12-24] MEDS ORDERED: NA CHLORIDE 0.9% 500 ML ONE (16:27)
--- NOTE | 2021-12-24 16:38 | EDPHYS ---
Physician Documentation [facility] Name: Alberto Botello Age: 71 yrs Sex: Female : 1950 Arrival Date: 12/24/2021 Time: 13:41 Bed 7 Private MD: ED Physician Rob Galo HPI: 12/24 14:59 This 71 yrs old Female presents to ER via Ambulatory with complaints of Abdominal Pain. jr8 14:59 The patient presents with abdominal pain in the left lower quadrant. Onset: The jr8 symptoms/episode began/occurred acutely, 2 day(s) ago, and became worse. The symptoms do not radiate. Associated signs and symptoms: none. The symptoms are described as stabbing. Modifying factors: The symptoms are alleviated by nothing, the symptoms are aggravated by nothing. Severity of pain: At its worst the pain was moderate in the emergency department the pain is unchanged. The patient has experienced similar episodes in the past, multiple times. The patient has not recently seen a physician. Patient with a history of chronic abdominal pain. Family stated that they have been medicating her appropriately but that the pain is worsened over the past couple days. Family wanted to Make sure nothing else is going on. Denies any nausea, vomiting, diarrhea, fever at this time.. Historical: - Allergies: 14:02 No Known Allergies; ll1 - PMHx: 14:02 Osteoporosis; Hepatitis; Hypertension; Diabetes - NIDDM; Pancreatitis; Chronic pain; ll1 Anxiety; - PSHx: 14:02 Cholecystectomy; ll1 - Immunization history:: Client reports receiving the 2nd dose of the Covid vaccine. - Social history:: Smoking status: Patient denies any tobacco usage or history of. ROS: 14:59 Eyes: Negative for injury, pain, redness, and discharge, ENT: Negative for injury, jr8 pain, and discharge, Neck: Negative for injury, pain, and swelling, Cardiovascular: Negative for chest pain, palpitations, and edema, Respiratory: Negative for shortness of breath, cough, wheezing, and pleuritic chest pain, Back: Negative for injury and pain, MS/Extremity: Negative for injury and deformity, Skin: Negative for injury, rash, and discoloration, Neuro: Negative for headache, weakness, numbness, tingling, and seizure. 14:59 Abdomen/GI: Positive for abdominal pain, Negative for nausea, vomiting, and diarrhea, abdominal distension, hematemesis, rectal bleeding. Exam: 14:59 Constitutional: This is a well developed, well nourished patient who is awake, alert, jr8 and in no acute distress. Cardiovascular: Regular rate and rhythm with a normal S1 and S2. No gallops, murmurs, or rubs. Normal PMI, no JVD. No pulse deficits. Respiratory: Lungs have equal breath sounds bilaterally, clear to auscultation and percussion. No rales, rhonchi or wheezes noted. No increased work of breathing, no retractions or nasal flaring. Back: No spinal tenderness. No costovertebral tenderness. Full range of motion. Skin: Warm, dry with normal turgor. Normal color with no rashes, no lesions, and no evidence of cellulitis. MS/ Extremity: Pulses equal, no cyanosis. Neurovascular intact. Full, normal range of motion. Neuro: Awake and alert, GCS 15, oriented to person, place, time, and situation. Cranial nerves II-XII grossly intact. Motor strength 5/5 in all extremities. Sensory grossly intact. 14:59 Abdomen/GI: Inspection: abdomen appears normal, Bowel sounds: active, all quadrants, Palpation: soft, in all quadrants, moderate abdominal tenderness, in the left lower quadrant, mass, is not appreciated, rebound tenderness, is not appreciated, voluntary guarding, is not appreciated, involuntary guarding, is not appreciated, no appreciated organomegaly, Indicators: McBurney's point is not tender, Ledesma's sign is negative, Rovsing's sign is negative, Liver: tenderness, is not appreciated. Vital Signs: 14:03 BP 145 / 74; Pulse 98; Resp 18; Temp 97.5; Pulse Ox 99% ; Pain 10/10; ll1 16:27 BP 142 / 82; Pulse 83; Resp 16; Pulse Ox 98% ; vg1 MDM: 14:07 Patient medically screened. jr8 16:36 Data reviewed: vital signs, nurses notes, lab test result(s), radiologic studies, CT jr8 scan. Data interpreted: Pulse oximetry: on room air is 98 %. Interpretation: normal. Counseling: I had a detailed discussion with the patient and/or guardian regarding: the historical points, exam findings, and any diagnostic results supporting the discharge/admit diagnosis, lab results, radiology results, the need for outpatient follow up, a family practitioner, to return to the emergency department if symptoms worsen or persist or if there are any questions or concerns that arise at home. Response to treatment: the patient's symptoms have markedly improved after treatment. Special discussion: Based on the patient's Hx, exam, and Dx evaluation, there is no indication for emergent surgery or inpatient Tx. It is understood by the patient/guardian that if the Sx's persist or worsen they need to return immediately for re-evaluation. 12/24 14:13 Order name: CBC with Diff; Complete Time: 16:13 jr8 12/24 14:13 Order name: CMP; Complete Time: 16:09 jr8 12/24 14:13 Order name: Lipase; Complete Time: 16: jr8 12/24 15:41 Order name: CT Abd/Pelvis - IV Contrast Only jr8 12/24 15:45 Order name: Abdomen ; Complete Time: 16:36 EDMS 12/24 16:10 Order name: CBC Smear Scan; Complete Time: 16:13 EDMS 12/24 14:13 Order name: IV Saline Lock; Complete Time: 15:23 jr8 12/24 14:13 Order name: Labs collected and sent; Complete Time: 15:23 jr8 Administered Medications: 15:30 Drug: Zofran (Ondansetron) 4 mg Route: IVP; Site: right forearm; vg1 16:28 Follow up: Response: No adverse reaction; Marked relief of symptoms vg1 15:32 Drug: morphine 4 mg Route: IVP; Site: right forearm; vg1 16:28 Follow up: Response: No adverse reaction; Marked relief of symptoms vg1 16:28 Drug: NS 0.9% 500 ml Route: IV; Rate: bolus; Site: right forearm; vg1 17:38 Follow up: IV Status: Completed infusion; IV Intake: 500ml vg1 Disposition: 19:00 Co-signature as Attending Physician, Rob Galo MD I agree with the assessment and sarah plan of care. Disposition Summary: 12/24/21 16:38 Discharge Ordered Location: Home jr8 Problem: new jr8 Symptoms: have improved jr8 Condition: Stable jr8 Diagnosis - Abdominal pain, unspecified jr8 - Left lower quadrant abdominal tenderness jr8 Followup: jr8 - With: Private Physician - When: 2 - 3 days - Reason: Recheck today's complaints, Continuance of care, Re-evaluation by your physician Discharge Instructions: - Discharge Summary Sheet jr8 - Abdominal Pain, Adult jr8 Forms: - Medication Reconciliation Form jr8 - Thank You Letter jr8 - Antibiotic Education jr8 - Prescription Opioid Use jr8 Signatures: Dispatcher [employer] EDRob Hall MD MD cha Roszak, Josh, PA PA jr8 Eleonora Portillo RN RN vg1 Bonita Go RN RN ll1
--- NOTE | 2021-12-24 16:38 | ER ---
Nurse's Notes [facility] Name: Alberto Botello Age: 71 yrs Sex: Female : 1950 Arrival Date: 12/24/2021 Time: 13:41 Bed 7 Private MD: Diagnosis: Abdominal pain, unspecified;Left lower quadrant abdominal tenderness Presentation: 12/24 14:02 Chief complaint: Patient states: Abdominal pain for 3-4 days. Denies N/V/D. Risk ll1 Assessment: Do you want to hurt yourself or someone else? Patient reports no desire to harm self or others. Onset of symptoms was December 20, 2021. 14:02 Method Of Arrival: Ambulatory ll1 14:02 Acuity: ART 3 ll1 14:03 Coronavirus screen: Vaccine status: Patient reports receiving the 2nd dose of the covid ll1 vaccine. Client denies travel out of the [place] in the last 14 days. Ebola Screen: Patient denies travel to an Ebola-affected area in the 21 days before illness onset. Initial Sepsis Screen: Does the patient meet any 2 criteria? No. Patient's initial sepsis screen is negative. Does the patient have a suspected source of infection? Yes: Acute abdominal pain. Triage Assessment: 14:04 General: Appears ill, Behavior is cooperative, appropriate for age. Pain: Complains of ll1 pain in abdomen Quality of pain is described as aching. GI: Reports lower abdominal pain, upper abdominal pain. Historical: - Allergies: 14:02 No Known Allergies; ll1 - PMHx: 14:02 Osteoporosis; Hepatitis; Hypertension; Diabetes - NIDDM; Pancreatitis; Chronic pain; ll1 Anxiety; - PSHx: 14:02 Cholecystectomy; ll1 - Immunization history:: Client reports receiving the 2nd dose of the Covid vaccine. - Social history:: Smoking status: Patient denies any tobacco usage or history of. Screenin:16 Abuse screen: Denies threats or abuse. Nutritional screening: No deficits noted. vg1 Tuberculosis screening: No symptoms or risk factors identified. Fall Risk No fall in past 12 months (0 pts). No secondary diagnosis (0 pts). IV access (20 points). Ambulatory Aid- Crutches/Cane/Walker (15 pts). Gait- Normal/Bed Rest/Wheelchair (0 pts) Mental Status- Oriented to own ability (0 pts). Total Huffman Fall Scale indicates Low Risk Score (25-44 pts). Fall prevention measures have been instituted. Side Rails Up X 2 Placed close to Nursing Station Family Present and informed to notify staff if they need to leave bedside As available Patient and Family Educated on Fall Prevention Program and strategies. Assessment: 14:16 General: Appears in no apparent distress. uncomfortable, Behavior is calm, cooperative. vg1 Pain: Complains of pain in left lower quadrant Pain currently is 7 out of 10 on a pain scale. Pain began x 1 week. Neuro: Level of Consciousness is awake, alert, obeys commands, Oriented to person, place, time, situation. Cardiovascular: Patient's skin is warm and dry. Respiratory: Airway is patent Respiratory effort is even, unlabored. GI: Abdomen is flat, Bowel sounds present X 4 quads. Abd is soft and non tender X 4 quads. : No signs and/or symptoms were reported regarding the genitourinary system. EENT: No signs and/or symptoms were reported regarding the EENT system. Derm: Skin is intact, is healthy with good turgor. Musculoskeletal: Circulation, motion, and sensation intact. 15:24 Reassessment: Patient appears in no apparent distress at this time. No changes from vg1 previously documented assessment. Patient and/or family updated on plan of care and expected duration. Pain level reassessed. Patient is alert, oriented x 3, equal unlabored respirations, skin warm/dry/pink. 16:25 Reassessment: Patient appears in no apparent distress at this time. Patient and/or vg1 family updated on plan of care and expected duration. Pain level reassessed. Patient is alert, oriented x 3, equal unlabored respirations, skin warm/dry/pink. 16:45 Reassessment: attempted to call daughter to notify of pt discharge, no answer. vg1 17:05 Reassessment: attempted to call daughter to notify of pt discharge, no answer. vg1 Vital Signs: 14:03 BP 145 / 74; Pulse 98; Resp 18; Temp 97.5; Pulse Ox 99% ; Pain 10/10; ll1 16:27 BP 142 / 82; Pulse 83; Resp 16; Pulse Ox 98% ; vg1 ED Course: 13:41 Patient arrived in ED. ds1 14:02 Triage completed. ll1 14:03 Arm band placed on Patient placed in an exam room, on a stretcher. ll1 14:07 Ruel Cantu PA is PHCP. jr8 14:07 Rob Galo MD is Attending Physician. jr8 14:16 Eleonora Portillo, RN is Primary Nurse. vg1 14:16 Patient has correct armband on for positive identification. Call light in reach. Side vg1 rails up X2. Adult w/ patient. 14:55 Missed attempt(s): 22 gauge in right forearm. vg1 15:05 Missed attempt(s): 22 gauge in left forearm. vg1 15:22 Inserted saline lock: 22 gauge in right forearm, using aseptic technique. Blood tp1 collected. 16:13 Abdomen In Process Unspecified. EDMS 17:38 No provider procedures requiring assistance completed. IV discontinued, intact, vg1 bleeding controlled, No redness/swelling at site. Pressure dressing applied. Administered Medications: 15:30 Drug: Zofran (Ondansetron) 4 mg Route: IVP; Site: right forearm; vg1 16:28 Follow up: Response: No adverse reaction; Marked relief of symptoms vg1 15:32 Drug: morphine 4 mg Route: IVP; Site: right forearm; vg1 16:28 Follow up: Response: No adverse reaction; Marked relief of symptoms vg1 16:28 Drug: NS 0.9% 500 ml Route: IV; Rate: bolus; Site: right forearm; vg1 17:38 Follow up: IV Status: Completed infusion; IV Intake: 500ml vg1 Intake: 17:38 IV: 500ml; Total: 500ml. vg1 Outcome: 16:38 Discharge ordered by . jr8 17:38 Discharged to home via wheelchair, with family. vg1 17:38 Condition: good 17:38 Discharge instructions given to family, Instructed on discharge instructions, follow up and referral plans. Demonstrated understanding of instructions, follow-up care. 17:38 Patient left the ED. vg1 Signatures: Dispatcher [employer] EDOR Abigail Silva ds1 Ruel Cantu PA PA jr8 Eleonora Portillo, RN RN vg1 Bonita Go RN RN ll1 Yara Vega tp1
[2021-12-24 20:55] VITALS: TEMP 97.5
[2021-12-24 20:57] VITALS: BP 142/82; O2SAT 98
== END 2021-12-24 17:38 | disposition home or self-care (01) ==
LOC: ER 13:37
DX: R10.814 Left lower quadrant abdominal tenderness (principal); R10.32 Left lower quadrant pain; E11.9 Type 2 diabetes mellitus without complications; I10 Essential (primary) hypertension; G89.29 Other chronic pain
CPT/HCPCS: 96361; 85025; 36415; 83690; 80053; 74177; 96375; 96374; 99284; Q9967; J7040; J2405

== ENCOUNTER 2021-12-30 15:57 | Emergency (ER) | payer OTHER ==
--- OUTSIDE RECORDS SUMMARY | 2021-12-30 16:33 | XMS REPORT | Continuity of Care Document ---
:1950 Author Organization [facility] t Address [address] [place] [address] Care Team Providers Name Role Phone ALEJANDRA, [...] Expiration Date Brandy haywood MEDICARE A B [id number] 2021 00:00:00 [place]ID OF [place] [id number] MEDICARE PART A [id number] \\T\\ B - MEDICARE [facility]-MEDICAID - [id number] MEDICAID MEDICARE PART A [id number] 2003 \\T\\ B 00:00:00 [place] [id number] 2013 00:00:00 Problems Condition Condition Condition Status [...] ity of of first of first 00:00: [place] lumbar lumbar 00 [facility] vertebra vertebra Branch with with routine routine healing healing Hypertensi Hypertensi Disease Active C HI St on on [facility] Diabetes Diabetes Disease Active [facility] S t mellitus mellitus [facility] New onset New onset Problem Active [...] NO KNOWN Allergy Active [facility] NO KNOWN Drug Active Univers ALLERGIE Class ity of S [place] [facility] Family History Family Member Diagnosis Comments Start Date Stop Date Source Father Family history of Univers ity of [place] lung cancer Physicians Social History Social Habit Start Date Stop Date Quantity Comments Source Exposure to Not sure [facility] SARS-CoV-2 (event) Medica l Branch Tobacco use and 2021-05-07 2021-05-[address] [facility] - exposure 00:00:00 00:00:00 Medical Center Alcohol intake 2016-03-18 2016-03-18 0 /d [facility] 00:00:00 00:00:00 Medical Branch Sex Ass[birth year] At [birth year] [facility] 00:00:00 00:00:00 Medical Branch Smoking Status Start Date Stop Date Source Never smoker [facility] Medications Ordered Filled Start Stop Current Ordering Indication Dosage Frequency Signature Comments Components Source Medication Medication Date Date Medication? Clinician (SIG) Name Name iopamidol 2020-09- No [id number] 100mL 100 mL, Univers (ISOVUE 09-23 Intravenou ity o f 370-500 mL) 17:55: 17:55 s, ONCE, 1 [place] injection 00 :00 dose, On Medica l 100 mL Tue [place] 07/24/21 at 1215, Routine ondansetron 2020-09- No 4mg 4 mg, Slow Univers (ZOFRAN 09-23 IV Push, ity of (PF)) 17:45: 16:38 ONCE, 1 [place] injection 4 00 :00 dose, On Medi josephine mg Tue [place] 07/24/21 at 1145, Routine morpHINE 2020-09 Yes 4mg 4 mg, Slow Uni vers injection 4 09-23 IV Push, ity of mg 16:30: Q4HPRN, [place] 24 Starting Medical on Tue [place] 07/24/21 at 1030, Until Discontinu ed, Routine, [...] MCG 10:59: mouth Medical capsule 53 daily. [place] alendronate Yes 70mg Take [address] (FOSAMAX) 8-26 by mouth [facility] - 70 MG 10:59: every 7 Medical tablet 53 days Take Center in the morning with a full glass of water, on an empty stomach, and do not take anything else by mouth or lie down for the next 30 min. . HYDROcodone Yes 1{tbl} Q.[id number] Take [address] -acetaminop 8-26 [id number] tablet by [facility]ukes - hen (NORCO 10:59: [...] next 30 min. . HYDROcodone Yes 1{tbl} Q.63707417 Take [address] -acetaminop 8-26 [id number] tablet by [facility]ukes - hen (NORCO 10:59: 3D mouth 3 Medi josephine 5-325) 53 (three) Center 5-325 mg times per tablet daily. ursodioL Yes 500mg QD Take [address] (ACTIGALL) 8-26 mg by Lukes - 500 MG 10:59: mouth Medical tablet 53 daily. [place] ALPRAZolam Yes 2mg Take 2 mg CH [...] MCG 10:59: mouth Medical capsule 53 daily. [place] alendronate Yes 70mg Take [address] (FOSAMAX) 8-26 by mouth [facility] - 70 MG 10:59: every 7 Medical tablet 53 days Take Center in the morning with a full glass of water, on an empty stomach, and do not take anything else by mouth or lie down for the next 30 min. . HYDROcodone Yes 1{tbl} Q.[id number] Take [address] -acetaminop 8-26 [id number] tablet by [facility] - hen (NORCO 10:59: 3D mouth 3 Medi josephine 5-325) 53 (three) Center 5-325 mg times per tablet daily. ursodioL Yes 500mg QD Take [address] (ACTIGALL) 8-26 mg by [facility]ukes - 500 MG 10:59: mouth Medical tablet 53 daily. [place] ALPRAZolam Yes 2mg Take 2 mg CH [...] next 30 min. . HYDROcodone Yes 1{tbl} Q.[id number] Take [address] -acetaminop 8-26 [id number] tablet by [facility] - hen (NORCO 09:40: 3D mouth 3 Medi josephine 5-325) 47 (three) Center 5-325 mg times per tablet daily. ursodioL Yes 500mg QD Take [address] (ACTIGALL) 8-26 mg by [facility]ukes - 500 MG 09:40: mouth Medical tablet 47 daily. Center meclizine Yes [facility] (ANTIVERT) 6-21 [facility] - 25 mg 00:00: Medical tablet 00 [place] meclizine Yes [facility] (ANTIVERT) 6-21 [facility] - 25 mg 00:00: Medical tablet 00 Center meclizine Yes [facility] (ANTIVERT) 6-21 [facility] - 25 mg 00:00: Medical tablet 00 [place] meclizine Yes [facility] (ANTIVERT) 6-21 [facility] - 25 mg 00:00: Medical tablet 00 [place] Nortriptyli Nortriptyli Yes HOLLIE TAKE 1 Univers [...] i ty of Tablet Tablet 00:00: TWICE [place] 00 DAILY. Physici ans MetFORMIN MetFORMIN Yes [...] ity of mg 24 hr 08:12: daily. [place] capsule 18 Medical Branch ALPRAZolam Yes 2mg [...] 6-03 ity of Powd 00:00: [place] 00 [facility] gabapentin 2016-0 Yes TAKE 1 Unive rs [...] Completed Unive rsity of PFIZER VACCINE 00:00:00 [facility] SARS-COV-2 COVID-19 2020-10-21 Completed Unive rsity of PFIZER VACCINE 00:00:00 [facility] Vital Signs Vital Name Observation Time Observation Value Comments Source WEIGHT 2021-03-10 62.596 kg 11:08:00 Systolic blood 2021-07-24 144 mm[Hg] University of pressure 19:28:00 [place] [facility] Diastolic blood 2021-07-24 90 mm[Hg] [facility] pressure 19:28:00 [place] [facility] Heart rate 2021-07-24 87 /min [facility] 19:28:00 [place] [facility] Respiratory rate 2021-07-24 18 /min [facility] 19:28:00 [place] [facility] Oxygen saturation 2021-07-24 97 /min [facility] in Arterial blood 19:28:00 [facility] by Pulse oximetry [place] Body temperature 2021-07-24 37 Carolann [facility] 16:20:00 [place] [facility] Body weight 2021-07-24 61.236 kg University 16:20:00 [place] [facility] BMI 2021-07-24 25.51 kg/m2 [facility] 16:20:00 [place] [facility] HEIGHT 2021-05-04 152.4 cm 17:29:00 WEIGHT 2021-05-04 61.689 kg 17:29:00 HEIGHT 2021-05-04 152.4 cm 17:29:00 WEIGHT 2021-05-04 61.689 kg 17:29:00 WEIGHT 2021-03-10 62.596 kg 11:08:00 Systolic blood 2021-05-07 156 mm[Hg] [facility] - pressure 08:00:00 Medical [place] Diastolic blood 2021-05-07 74 mm[Hg] [facility] - pressure 08:00:00 Medical Center Heart rate 2021-05-07 76 /min [facility] - 08:[facility] Medical Center Body temperature 2021-05-07 36.[address] [facility] [address] [facility] - 08:00:00 Medical Center Respiratory rate 2021-05-07 17 /min [facility] - 08:00:00 Medical Center Oxygen saturation 2021-05-07 97 /min [facility] - in Arterial blood 08:00:00 Medical nter by Pulse oximetry Body height 2021-05-04 152.[address] [facility] [address] [facility] - 17:29:00 [facility] Center Body weight 2021-05-04 61.[address] [facility] [address] [facility] - 17:29:00 [facility] BMI 2021-05-04 26.56 kg/m2 [facility] - 17:29:00 [facility] BP Systolic 2018-02-01 131 mm[Hg] Location: [facility] hospital 08:36:00 Position: [place] Physician s Sitting BP Diastolic 2018-02-01 78 mm[Hg] Location: Critical access hospital 08:36:00 Position: [place] Physician s Sitting Height 2018-02-01 60 [in_us] [facility] 08:36:00 [place] Physician s Weight 2018-02-01 117 [lb_av] [facility] 08:36:00 [place] Physician s Body Mass Index 2018-02-01 22.85 kg/m2 [facility] Calculated 08:36:00 [place] Physician s Heart Rate 2018-02-01 73 /min Location: [facility] 08:36:00 Brachial [place] Physician s Artery; Procedures Procedure Date / Time Performing Clinician Source Performed CT ABDOMEN PELVIS W 2021-07-24 18:00:55 Glenn Fu [facility] CONTRAST Medical Branch URINALYSIS 2021-07-24 17:39:00 Singer Glenn [facility] Branch LIPASE 2021-07-24 16:33:00 Singer [facility] COMP. METABOLIC PANEL 2021-07-24 16:33:00 [facility] ([id number] Medical Branch CBC WITH DIFF 2021-07-24 16:33:00 Singer [facility] NOTICE OF PRIVACY 2021-07-24 16:11:11 Doctor Unassigned, [facility] PRACTICES [place] [facility] REPORT OF PROCEDURE - 2021-05-06 16:07:30 Juan Alberto Shelton [facility] ENDOSCOPY [facility] ERCP,DIRECT VISUALIZATION 2021-05-06 15:00:00 Juan Alberto [facility] PROCEDURE W/ C-ARM 2021-05-06 15:00:00 Juan Alberto hSelton [facility] ERCP,BALLOON SWEEPING 2021-05-06 15:00:00 Juan Alberto Shelton [facility] CBC W/PLT COUNT & AUTO 2021-05-06 05:51:00 [facility] BASIC METABOLIC PANEL (7) 2021-05-06 05:51:00 [facility] HEPATIC FUNCTION PANEL 2021-05-06 05:51:00 Stephne [facility] ABORH, MANUAL 2021-05-05 05:07:[address] [facility] TYPE AND SCREEN, 2021-05-05 04:14:00 Roxie [facility] PROTHROMBIN TIME/INR 2021-05-05 04:14:00 [facility] SARS-COV2/RT-PCR ([facility] & 2021-05-05 00:18:00 Britney Lloyd [facility] - REF LABS) [facility] BLOOD GAS, VENOUS 2021-05-05 00:14:00 Nilton Sharp [facility] KETONE, BLOOD 2021-05-05 00:14:00 [facility] HIGH SENSITIVITY TROPONIN 2021-05-05 00:14:00 Roxie [facility] ED ECG INTERPRETATION 2021-05-04 23:15:17 Nilton [facility] BASIC METABOLIC PANEL (7) 2021-05-04 21:30:00 Cherie Faustin [facility] HEPATIC FUNCTION PANEL 2021-05-04 21:30:[address] [facility] AMYLASE 2021-05-04 21:30:00 Roxie [facility] LIPASE 2021-05-04 21:30:00 Roxie [facility] CBC W/PLT COUNT & AUTO 2021-05-04 19:37:00 Roxie [facility] ECG 12-LEAD 2021-05-04 19:22:33 Unknown, Hl7 Doctor [facility] POCT-GLUCOSE METER 2021-03-11 08:21:[address] [facility] COMPREHENSIVE METABOLIC 2021-03-11 06:09:00 Clive Alfredo [facility] REPORT OF PROCEDURE - 2021-03-10 23:43:51 Allen Chavez [facility] - ENDOSCOPY [facility] POCT-GLUCOSE METER 2021-03-10 16:43:[address] [facility] POCT-GLUCOSE METER 2021-03-10 12:45:[address] [facility] [place] ERCP 2021-03-10 12:02:00 Desiree Duggan [facility] ERCP,PAPILLOTOMY 2021-03-10 11:31:00 [facility] PROCEDURE W/ C-ARM 2021-03-10 11:31:00 Kathy [facility] ERCP,BALLOON SWEEPING 2021-03-10 11:31:00 Kathy [facility] POCT-GLUCOSE METER 2021-03-10 09:07:[address] CBC (HEMOGRAM ONLY) 2021-03-10 04:50:00 [facility] COMPREHENSIVE METABOLIC 2021-03-10 04:50:00 [facility] HEMOGLOBIN A1C 2021-03-10 04:50:00 [facility] POCT-GLUCOSE METER 2021-03-09 23:54:00 [facility] SARS-COV2/RT-PCR ([facility] & 2021-03-09 20:13:00 Desiree Duggan [facility] - REF LABS) [facility] POCT-GLUCOSE METER 2021-03-09 17:22:00 [facility] MR ABDOMEN WITHOUT IV 2021-03-09 15:38:00 [facility] CONTRAST MRCP [facility] POCT-GLUCOSE METER 2021-03-09 12:22:00 [facility] URINALYSIS W/ REFLEX 2021-03-09 10:56:00 [facility] URINE CULTURE [facility] HEPATIC FUNCTION PANEL 2021-03-09 05:25:00 [facility] PROTHROMBIN TIME/INR 2021-03-09 05:25:00 [facility] MAGNESIUM 2021-03-09 05:25:00 [facility] BASIC METABOLIC PANEL (7) 2021-03-09 05:25:00 [facility] CBC W/PLT COUNT & AUTO 2021-03-09 05:25:00 [facility] DIFFERENTIAL [facility] HEMOGLOBIN A1C 2021-03-09 05:25:00 [facility] MRI Brain wo contrast 2018-02-08 00:00:00 [facility] [id number] Physicians MRI Brain w/wo contrast 2018-02-01 00:00:00 [facility] [address] Physicians [facility] Plan of Care Planned Activity Planned Date Details Comments Source Future Scheduled 2021-09-[address] [facility] - Test 00:00:00 measurement Medical Center (procedure) [code = 31061705] Future Scheduled 2021-09-[address] [facility] [facility] - Test 00:00:00 measurement Medical Center (procedure) [code = 93826013] Future Scheduled 2021-09-[address] [facility] [address] [facility] - Test 00:00:00 measurement Medical Center (procedure) [code = 49758695] Future Scheduled 2021-09-[address] [facility] - Test 00:00:00 measurement Medical Center (procedure) [code = 65729133] Future Scheduled 2021-05-13 INFLUENZA VACCINE (#1) C [...] [facility] - Test 00:00:00 ([address] [place] [address] [id number] PCV13) [code = PNEUMOCOCCAL 65+ YRS (1 of 1 - [id number]_Vxbozor PCV13)] Future Scheduled 2013 PNEUMOCOCCAL 65+ YRS [facility] - Test 00:00:00 ([address] [place] [address] Center [id number]_Lfocoww PCV13) [code = PNEUMOCOCCAL 65+ YRS (1 of 1 - EVNE72_Qpuieis PCV13)] Future Scheduled 2013 PNEUMOCOCCAL 65+ Y[facility] - Test 00:00:00 ([address] [place] [address] [id number]_Rfcluoq PCV13) [code = PNEUMOCOCCAL 65+ YRS (1 of 1 - FARM79_Snuuhyu PCV13)] Future Scheduled 2013 PNEUMOCOCCAL 65+ YRS [facility] - Test 00:00:00 (1 of 1 - Medical Center KZDO80_Ogxiajv PCV13) [code = PNEUMOCOCCAL 65+ YRS (1 of 1 - SIVT64_Nqvrisp PCV13)] Future Scheduled 2004-10-14 MEDICARE ANNUAL CHI [...] 00:00:00 examination Medical Center (regime/therapy) [code = 675535586] Future Scheduled 1958 Urine screening [facility] - Test 00:00:00 protein (procedure) Medical Center [code = 967891285] Future Scheduled 1960 DIABETIC EYE EXAM [facility] - Test 00:00:00 [code = DIABETIC EYE Medical Center EXAM] Future Scheduled [address] [facility] - Test 00:00:00 examination Medical Center (regime/therapy) [code = 882469213] Future Scheduled 1958 Urine screening [facility] - Test 00:00:00 protein (procedure) Medical Center [code = 999409229] Future Scheduled 1960 DIABETIC EYE EXAM [facility] - Test 00:00:00 [code = DIABETIC EYE Medical Center EXAM] Future Scheduled [address] [facility] - Test 00:00:00 examination Medical Center (regime/therapy) [code = 647556799] Future Scheduled 1958 Urine screening [facility] Test 00:00:00 protein (procedure) Medical Center [code = 993434688] Future Scheduled 1960 DIABETIC EYE EXAM [facility] Test 00:00:00 [code = DIABETIC EYE Medical Center EXAM] Future Scheduled [address] [facility] - Test 00:00:00 examination Medical Center (regime/therapy) [code = 106191069] Future Scheduled 1958 Urine screening [facility] Test 00:00:00 protein (procedure) Medical Center [code = 850838759] Future Scheduled [address] [facility] - Test 00:00:00 malignant neoplasm of Medica l Center breast (procedure) [code = 380424689] Future Scheduled [address] [facility] - Test 00:00:00 malignant neoplasm of Medica l Center colon (procedure) [code = 778899293] Future Scheduled [address] [facility] [facility] - Test 00:00:00 malignant neoplasm of Medica l Center breast (procedure) [code = 453654393] Future Scheduled [address] [facility] [facility] - Test 00:00:00 malignant neoplasm of Medica l Center colon (procedure) [code = 420560938] Future Scheduled [address] [facility] [facility] - Test 00:00:00 malignant neoplasm of Medica l Center breast (procedure) [code = 360128410] Future Scheduled [address] [facility] [facility] - Test 00:00:00 malignant neoplasm of Medica l Center colon (procedure) [code = 508422440] Future Scheduled [address] [facility] - Test 00:00:00 malignant neoplasm of Medica l Center breast (procedure) [code = 357087613] Future Scheduled [address] [facility] - Test 00:00:00 malignant neoplasm of Medica l Center colon (procedure) [code = 957746152] Encounters Start End Encounter Admission Attending Care Care Encounter Source Date/Time Date/Time Type Type Clinicians Facility Department ID 2021-06-21 Inpatient ER TERESA BURNETT Gastro [id number] [facility] 02:39:12 TITIL[place]A 2021-08-10 2021-08-10 Outpatient MCKAY SUYAPA [facility] [id number] [facility] 10:38:01 17:18:04 LEV Bermudezg e of Medicin e 2021-07-24 2021-07-24 Emergency X [facility] ERT [id number] Univers 10:12:00 14:31:00 GLENN gail [facility] 2021-07-24 2021-07-24 Emergency [facility] [id number] Univers 10:12:00 14:31:00 Glenn DONAOT [id number] i ty [facility] [id number] [facility] [id number] [place] [address] Branch 2021-05-04 2021-05-07 Hospital ER Cherie Faustin [facility] [id number] 17:37:00 10:59:00 [facility] 2021-05-06 2021-05-[address] [facility] [id number] 15:10:00 16:27:00 Event Jm Rushing [facility] 2021-05-06 2021-05-[address] [facility] [id number] 13:00:00 14:30:00 [facility] 2021-05-05 2021-05-05 Travel [facility] [id number] [facility] 00:[facility]:00 00:00:00 [facility] 2021-05-04 2021-05-04 Outpatient [facility] [id number] [facility] 00:00:00 23:59:00 Colleg e [facility] Medicin e 2021-05-04 2021-05-04 Emergency ER [facility] Emergency [id number] [facility] 17:24:00 17:24:00 2021-05-04 2021-05-[address] [facility] [id number] 00:00:00 00:00:00 Only [facility] 2021-05-04 2021-05-04 Travel [facility] [id number] [facility] 00:[facility]:00 00:00:00 [facility] 2021-05-01 2021-05-01 Emergency [id number] 16:21:00 22:56:00 [facility] 2021-03-13 2021-03-13 Telephone Ezequiel, [facility] [id number] 00:00:00 00:00:00 [facility] 2021-03-08 2021-03-11 [facility] Curtis BurnettKenrick [facility] [id number] 23:13:00 11:35:00 Encounter Bret Schuster [facility] 2021-03-10 2021-03-10 [facility] [id number] 11:00:00 12:30:00 [facility] 2021-03-10 2021-03-10 Anesthesia Bahena, [facility] [id number] 11:36:00 12:27:00 Event Graciela jessica Colón [facility] 2018-02-01 2018-02-01 AppointBRENDAN Hussein Neurology [id number] Univers 08:00:00 08:00:00 HOLLIE Adair ity of CHRISTINA, M.D. [place] M.D. Physici ans Results Test Description Test Time Test Comments Results Result Comments Source COMP. METABOLIC PANEL (82876) 2021-07-24 17:14:29 Test Item Value Reference Range Interpretation Comme nts NA (test code = 0378492146) 139 mmol/L 135-145 K (test code = 6397762332) 4.3 mmol/L 3.5-5.0 CL (test code = 9950960664) 104 mmol/L 98-108 CO2 TOTAL (test code = 8941367077) 24 mmol/L 23-31 AGAP (test code = 9382769061) 2-16 BUN (test code = 2954108201) 18 mg/dL 7-23 GLUCOSE (test code = 6877612883) 104 mg/dL 70-110 CREATININE (test code = 1.39 mg/dL 0.50-1.04 H 0213005378) TOTAL BILI (test code = 0.4 mg/dL 0.1-1.5 3499527925) CALCIUM (test code = 1525692091) 9.6 mg/dL 8.6-10.6 T PROTEIN (test code = 7752190772) 8.4 g/dL 6.3-8.2 H ALBUMIN (test code = 2146627364) 4.6 g/dL 3.5-5.0 ALK PHOS (test code = 2749294557) 93 U/L 34-122 ALTv (test code = 1742-6) 44 U/L 5-35 H AST(SGOT) (test code = 5165933790) 48 U/L 13-40 H eGFR (test code = 6721878954) mL/min/1.73m2 TORRES (test code = TORRES) Association [...] tests). Lab Interpretation (test code = Abnormal 52535-0) [facility]13:49 Test Item Value Reference Range Interpretation Comments LIPASE (test code = 4742088393) 266 U/L 0-220 H Lab Interpretation (test code = Abnormal 08111-3) [facility] [id number] 17:03:27 Test Item Value Reference Range Interpretation Comments WBC (test code = See_Comment [Automated 5390-2) message] The sy stem which generated this result transmitted reference range : 4.30 - 11.10 10*3/?L. The reference range was not used to interpret this result as normal/abnormal . RBC (test code = See_Comment [Automated 609-8) message] The sy stem which generated this [...] RDW-SD (test code = 48.4 fL 39.0-49.9 70034-6) RDW-CV (test code = 13.8 % 12.0-15.5 788-0) PLT (test code = See_Comment [Automated 297-3) message] The sy stem which generated this result transmitted reference range : 166 - 358 10*3/ ?L. The reference r becca was not used to interpret this result as normal/abnormal . MPV (test code = 9.1 fL 9.5-12.9 L 36539-2) NRBC/100 WBC (test See_Comment [Automat ed code = 8570837470) message] The system which generated this result transmitted reference range : 0.0 - 10.0 /100 WBCs. The refer ence range was not u sed to interpret th is result as normal/abnormal . NRBC x10^3 (test code <0.01 See_Comment [Auto mated = 0386689228) message] The s ystem which generated this result transmitted reference range : 10*3/?L. The reference range was not used to interpret this result as normal/abnormal . GRAN MAT (NEUT) % 64.8 % (test code = 770-8) IMM GRAN % (test code 0.90 % = 1261174052) LYMPH % (test code = 24.2 % 736-9) MONO % (test code = 8.2 % 5905-5) EOS % (test code = 1.4 % 713-8) BASO % (test code = 0.5 % 706-2) GRAN MAT x10^3(ANC) 5.59 10*3/uL 1.88-7.09 (test code = 0306686066) IMM GRAN x10^3 (test 0.08 10*3/uL 0.00-0.06 H code = 7200050974) LYMPH x10^3 (test code 2.09 10*3/uL 1.32-3.29 = 731-0) MONO x10^3 (test code 0.71 10*3/uL 0.33-0.92 = 742-7) EOS x10^3 (test code = 0.12 10*3/uL 0.03-0.39 711-2) BASO x10^3 (test code 0.04 10*3/uL 0.01-0.07 = 704-7) Lab Interpretation Abnormal (test code = 26384-5) [facility] [id number] 07:08:00 Test Item Value Reference Range Interpretation Comments Sodium (test code = 139 meq/L 644-103 2894-2) Potassium (test 4.1 meq/L 3.5-5.1 code = 2823-3) Chloride (test code 107 meq/L 98-107 = 2075-0) CO2 (test code = 25 meq/L 22-29 2027-9) BUN (test code = 13 mg/dL 7-21 3094-0) Creatinine (test 0.97 mg/dL 0.57-1.25 code = 2160-0) Glucose (test code 80 mg/dL 70-105 = 2345-7) Calcium (test code 8.9 mg/dL 8.4-10.2 = 97689-8) EGFR (test code = 56 mL/min/1.[address] [place] [address]-4) NOT ACCURATE CREATININE CLEARANCE IN PREDICTING GLOMERULAR FILTRATION RATE . ESTIMATED GFR I S NOT APPLICABLE FOR DIALYSIS PATIEN TORRES (test code = [employer] Treating Unit Operator ID - TORRES) TOÑITO Camacho [facility] [id number] 07:08:00 Test Item Value Reference Range Interpretation Comments Protein, Total (test 6.9 See_Comment [Autom ated code = 2885-2) message] The system which generated this result transmit laen reference range : 6.0 - 8.3 gm/dL . The reference range was not u sed to interpret th is result as normal/abnormal . Albumin (test code = 3.6 g/dL 3.5-5 27737-7) Total Bilirubin (test 0.3 mg/dL 0.2-1.2 code = 1974-2) Bilirubin, Direct 0.2 mg/dL 0.1-0.5 (test code = 1967-7) Alkaline Phosphatase 56 U/L 40-150 (test code = 6768-6) AST (test code = 37 U/L 5-34 H 1920-8) ALT (test code = 50 U/L 6-55 1742-6) TORRES (test code = TORRES) [employer] Operator ID - TOÑITO Camacho Lab Interpretation Abnormal (test code = 54511-5) [facility] [id number] 07:08:00 Test Item Value Reference Range Interpretation Comments Sodium (test code = 139 meq/L 128-859 8664-2) Potassium (test 4.1 meq/L 3.5-5.1 code = 2823-3) Chloride (test code 107 meq/L 98-107 = 2075-0) CO2 (test code = 25 meq/L 2028-05) BUN (test code = 13 mg/dL 7-21 3094-0) Creatinine (test 0.97 mg/dL 0.57-1.25 code = 2160-0) Glucose (test code 80 mg/dL 70-105 = 2345-7) Calcium (test code 8.9 mg/dL 8.4-10.2 = 67833-9) EGFR (test code = 56 mL/min/1.[address] [place] [address]-6) NOT ACCURATE CREATININE CLEARANCE IN PREDICTING GLOMERULAR FILTRATION RATE . ESTIMATED GFR I S NOT APPLICABLE FOR DIALYSIS PATIEN TORRES (test code = [employer] Operator ID - TORRES) TO[facility]ITO Camacho [facility] [id number] 07:08:00 Test Item Value Reference Range Interpretation Comments Protein, Total (test 6.9 See_Comment [Autom ated code = 2885-2) message] The system which generated this result transmit lane reference range : 6.0 - 8.3 gm/dL . The reference range was not u sed to interpret th is result as normal/abnormal . Albumin (test code = 3.6 g/dL 3.5-5 33383-3) Total Bilirubin (test 0.3 mg/dL 0.2-1.2 code = 1974-2) Bilirubin, Direct 0.2 mg/dL 0.1-0.5 (test code = 1968-7) Alkaline Phosphatase 56 U/L 40-150 (test code = 6768-6) AST (test code = 37 U/L 5-34 H 1920-8) ALT (test code = 50 U/L 6-55 1742-6) TORRES (test code = TORRES) [employer] Operator ID - PIJOVANNI L Lab Interpretation Abnormal (test code = 70747-2) [facility] [id number] 07:08:00 Test Item Value Reference Range Interpretation Comments Sodium (test code = 139 meq/L 147-009 9523-2) Potassium (test 4.1 meq/L 3.5-5.1 code = 2823-3) Chloride (test code 107 meq/L 98-107 = 2075-0) CO2 (test code = 25 meq/L 22-29 2028-9) BUN (test code = 13 mg/dL 04-01 3094-0) Creatinine (test 0.97 mg/dL 0.57-1.25 code = 2160-0) Glucose (test code 80 mg/dL 70-105 = 2345-7) Calcium (test code 8.9 mg/dL 8.4-10.2 = 60653-5) EGFR (test code = 56 mL/min/1.[address] [place] [address]-9) NOT ACCURATE CREATININE CLEARANCE IN PREDICTING GLOMERULAR FILTRATION RATE . ESTIMATED GFR I S NOT APPLICABLE FOR DIALYSIS PATIEN TORRES (test code = [employer] Operator ID - TORRES) TO[facility]ITO Camacho [facility] [id number] 07:08:00 Test Item Value Reference Range Interpretation Comments Protein, Total (test 6.9 See_Comment [Autom ated code = 2885-2) message] The system which generated this result transmit lane reference range : 6.0 - 8.3 gm/dL . The reference range was not u sed to interpret th is result as normal/abnormal . Albumin (test code = 3.6 g/dL 3.5-5 88048-8) Total Bilirubin (test 0.3 mg/dL 0.2-1.2 code = 1975-2) Bilirubin, Direct 0.2 mg/dL 0.1-0.5 (test code = 1967-7) Alkaline Phosphatase 56 U/L 40-150 (test code = 6768-6) AST (test code = 37 U/L 5-34 H 1920-8) ALT (test code = 50 U/L 6-55 1742-6) TORRES (test code = TORRES) [employer] Operator ID - TOÑITO Camacho Lab Interpretation Abnormal (test code = 44778-1) [facility] [id number] 07:08:00 Test Item Value Reference Range Interpretation Comments Sodium (test code = 139 meq/L 971-717 9429-2) Potassium (test 4.1 meq/L 3.5-5.1 code = 2823-3) Chloride (test code 107 meq/L 98-107 = 2075-0) CO2 (test code = 25 meq/L 22-29 8-9) BUN (test code = 13 mg/dL 04-01 3094-0) Creatinine (test 0.97 mg/dL 0.57-1.25 code = 2160-0) Glucose (test code 80 mg/dL 70-105 = 2345-7) Calcium (test code 8.9 mg/dL 8.4-10.2 = 22593-6) EGFR (test code = 56 mL/min/1.[address] [place] [address]-8) NOT ACCURATE CREATININE CLEARANCE IN PREDICTING GLOMERULAR FILTRATION RATE . ESTIMATED GFR I S NOT APPLICABLE FOR DIALYSIS PATIEN TORRES (test code = [employer] Operator ID - TORRES) TO[facility]ITO Camacho [facility] [id number] 07:08:00 Test Item Value Reference Range Interpretation Comments Protein, Total (test 6.9 See_Comment [Autom ated code = 2885-2) message] The system which generated this result transmit lane reference range : 6.0 - 8.3 gm/dL . The reference range was not u sed to interpret th is result as normal/abnormal . Albumin (test code = 3.6 g/dL 3.5-5 76535-3) Total Bilirubin (test 0.3 mg/dL 0.2-1.2 code = 1975-2) Bilirubin, Direct 0.2 mg/dL 0.1-0.5 (test code = 1968-7) Alkaline Phosphatase 56 U/L 40-150 (test code = 6768-6) AST (test code = 37 U/L 5-34 H 1920-8) ALT (test code = 50 U/L 6-55 1742-6) TORRES (test code = TORRES) [employer] Operator ID - TOÑITO Camacho Lab Interpretation Abnormal (test code = 28129-4) [facility]OL[facility] [id number] 07:08:00 Test Item Value Reference Range Interpretation [...] S NOT APPLICABLE FOR DIALYSIS PATIEN TS. [employer] Operator ID - PIJOVANNI LHEPATIC FUNCTION [id number] 07:08:00 Test Item Value Reference Range Interpretation [...] (test code = 50 U/L 6-55 347) [employer] Operator ID - TOÑITO LCBC with platelet count + automated [id number] 06:01:00 Test Item Value Reference Range Interpretation Comments WBC (test code = 6690-2) 7.9 See_Comment [A utomated message] The system [employer] generated this result transmitted ref erence range: 3.5 - 10 .5 K/L. The refe rence range was not u sed to interpret this result as normal/abnor mal. RBC (test code = 789-8) 3.22 See_Comment L [Au tomated message] The system [employer] generated this result transmitted ref erence range: 3.93 - 5 .22 M/L. The refe rence range was not u sed to interpret this result as normal/abnor mal. MCHC (test code = 786-4) 31.8 See_Comment L [A utomated message] The system [employer] generated this result transmitted ref erence range: [...] See_Comment [Aut omated message] 777-3) The system [employer] generated this result transmitted ref erence range: 150 - 45 0 K/CU MM. The referen ce range was not u sed to interpret this result as normal/abnor mal. MPV (test code = 8.9 fL 9.4-12.3 L 27508-3) nRBC (test code = 413) 0 See_Comment [Aut omated message] The system [employer] generated this result transmitted ref erence range: [...] See_Comment [Aut omated message] 670) The system [employer] generated this result transmitted ref erence range: 1.56 - 6 .13 K/L. The refe rence range was not u sed to interpret this result as normal/abnor mal. # Lymphs (test code = 2.20 See_Comment [Auto mated message] 414) The system [employer] generated this result transmitted ref erence range: 1.18 - 3 .74 K/L. The refe rence range was not u sed to interpret this result as normal/abnor mal. # Monos (test code = 0.54 See_Comment H [Autom ated message] 415) The system [employer] generated this result transmitted ref erence range: 0.24 - 0 .36 K/L. The refe rence range was not u sed to interpret this result as normal/abnor mal. # Eos (test code = 416) 0.08 See_Comment [Au tomated message] The system [employer] generated this result transmitted ref erence range: 0.04 - 0 .36 K/L. The refe rence range was not u sed to interpret this result as normal/abnor mal. # Baso (test code = 417) 0.03 See_Comment [A utomated message] The system [employer] generated this result transmitted ref erence range: 0.01 - 0 .08 K/L. The refe rence range was not u sed to interpret this result as normal/abnor mal. Immature 0 % 0-1 Granulocytes-Relative (test code = 2801) Lab Interpretation (test Abnormal code = 07082-6) [facility] with platelet count + automated [id number] 06:01:00 Test Item Value Reference Range Interpretation Comments WBC (test code = 6690-2) 7.9 See_Comment [A utomated message] The system [employer] generated this result transmitted ref erence range: 3.5 - 10 .5 K/L. The refe rence range was not u sed to interpret this result as normal/abnor mal. RBC (test code = 789-8) 3.22 See_Comment L [Au tomated message] The system [employer] generated this result transmitted ref erence range: 3.93 - 5 .22 M/L. The refe rence range was not u sed to interpret this result as normal/abnor mal. MCHC (test code = 786-4) 31.8 See_Comment L [A utomated message] The system [employer] generated this result transmitted ref erence range: [...] See_Comment [Aut omated message] 777-3) The system [employer] generated this result transmitted ref erence range: 150 - 45 0 K/CU MM. The referen ce range was not u sed to interpret this result as normal/abnor mal. MPV (test code = 8.9 fL 9.4-12.3 L 13328-4) nRBC (test code = 413) 0 See_Comment [Aut omated message] The system [employer] generated this result transmitted ref erence range: [...] See_Comment [Aut omated message] 670) The system [employer] generated this result transmitted ref erence range: 1.56 - 6 .13 K/L. The refe rence range was not u sed to interpret this result as normal/abnor mal. # Lymphs (test code = 2.20 See_Comment [Auto mated message] 414) The system [employer] generated this result transmitted ref erence range: 1.18 - 3 .74 K/L. The refe rence range was not u sed to interpret this result as normal/abnor mal. # Monos (test code = 0.54 See_Comment H [Autom ated message] 415) The system [employer] generated this result transmitted ref erence range: 0.24 - 0 .36 K/L. The refe rence range was not u sed to interpret this result as normal/abnor mal. # Eos (test code = 416) 0.08 See_Comment [Au tomated message] The system [employer] generated this result transmitted ref erence range: 0.04 - 0 .36 K/L. The refe rence range was not u sed to interpret this result as normal/abnor mal. # Baso (test code = 417) 0.03 See_Comment [A utomated message] The system [employer] generated this result transmitted ref erence range: 0.01 - 0 .08 K/L. The refe rence range was not u sed to interpret this result as normal/abnor mal. Immature 0 % 0-1 Granulocytes-Relative (test code = 2801) Lab Interpretation (test Abnormal code = 43088-6) [facility] with platelet count + automated [id number] 06:01:00 Test Item Value Reference Range Interpretation Comments WBC (test code = 6690-2) 7.9 See_Comment [A utomated message] The system [employer] generated this result transmitted ref erence range: 3.5 - 10 .5 K/L. The refe rence range was not u sed to interpret this result as normal/abnor mal. RBC (test code = 789-8) 3.22 See_Comment L [Au tomated message] The system [employer] generated this result transmitted ref erence range: 3.93 - 5 .22 M/L. The refe rence range was not u sed to interpret this result as normal/abnor mal. MCHC (test code = 786-4) 31.8 See_Comment L [A utomated message] The system [employer] generated this result transmitted ref erence range: [...] See_Comment [Aut omated message] 777-3) The system [employer] generated this result transmitted ref erence range: 150 - 45 0 K/CU MM. The referen ce range was not u sed to interpret this result as normal/abnor mal. MPV (test code = 8.9 fL 9.4-12.3 L 29183-9) nRBC (test code = 413) 0 See_Comment [Aut omated message] The system [employer] generated this result transmitted ref erence range: [...] See_Comment [Aut omated message] 670) The system [employer] generated this result transmitted ref erence range: 1.56 - 6 .13 K/L. The refe rence range was not u sed to interpret this result as normal/abnor mal. # Lymphs (test code = 2.20 See_Comment [Auto mated message] 414) The system [employer] generated this result transmitted ref erence range: 1.18 - 3 .74 K/L. The refe rence range was not u sed to interpret this result as normal/abnor mal. # Monos (test code = 0.54 See_Comment H [Autom ated message] 415) The system [employer] generated this result transmitted ref erence range: 0.24 - 0 .36 K/L. The refe rence range was not u sed to interpret this result as normal/abnor mal. # Eos (test code = 416) 0.08 See_Comment [Au tomated message] The system [employer] generated this result transmitted ref erence range: 0.04 - 0 .36 K/L. The refe rence range was not u sed to interpret this result as normal/abnor mal. # Baso (test code = 417) 0.03 See_Comment [A utomated message] The system [employer] generated this result transmitted ref erence range: 0.01 - 0 .08 K/L. The refe rence range was not u sed to interpret this result as normal/abnor mal. Immature 0 % 0-1 Granulocytes-Relative (test code = 2801) Lab Interpretation (test Abnormal code = 29318-4) [facility] with platelet count + automated [id number] 06:01:00 Test Item Value Reference Range Interpretation Comments WBC (test code = 6690-2) 7.9 See_Comment [A utomated message] The system [employer] generated this result transmitted ref erence range: 3.5 - 10 .5 K/L. The refe rence range was not u sed to interpret this result as normal/abnor mal. RBC (test code = 789-8) 3.22 See_Comment L [Au tomated message] The system [employer] generated this result transmitted ref erence range: 3.93 - 5 .22 M/L. The refe rence range was not u sed to interpret this result as normal/abnor mal. MCHC (test code = 786-4) 31.8 See_Comment L [A utomated message] The system [employer] generated this result transmitted ref erence range: [...] See_Comment [Aut omated message] 777-3) The system [employer] generated this result transmitted ref erence range: 150 - 45 0 K/CU MM. The referen ce range was not u sed to interpret this result as normal/abnor mal. MPV (test code = 8.9 fL 9.4-12.3 L 28302-2) nRBC (test code = 413) 0 See_Comment [Aut omated message] The system [employer] generated this result transmitted ref erence range: [...] See_Comment [Aut omated message] 670) The system [employer] generated this result transmitted ref erence range: 1.56 - 6 .13 K/L. The refe rence range was not u sed to interpret this result as normal/abnor mal. # Lymphs (test code = 2.20 See_Comment [Auto mated message] 414) The system [employer] generated this result transmitted ref erence range: 1.18 - 3 .74 K/L. The refe rence range was not u sed to interpret this result as normal/abnor mal. # Monos (test code = 0.54 See_Comment H [Autom ated message] 415) The system [employer] generated this result transmitted ref erence range: 0.24 - 0 .36 K/L. The refe rence range was not u sed to interpret this result as normal/abnor mal. # Eos (test code = 416) 0.08 See_Comment [Au tomated message] The system [employer] generated this result transmitted ref erence range: 0.04 - 0 .36 K/L. The refe rence range was not u sed to interpret this result as normal/abnor mal. # Baso (test code = 417) 0.03 See_Comment [A utomated message] The system [employer] generated this result transmitted ref erence range: 0.01 - 0 .08 K/L. The refe rence range was not u sed to interpret this result as normal/abnor mal. Immature 0 % 0-1 Granulocytes-Relative (test code = 2801) Lab Interpretation (test Abnormal code = 56665-0) [facility] W/PLT COUNT & AUTO [id number] 06:01:00 Test Item Value Reference Range Interpretation [...] (BEAKER) (test code = 2801) ECG 12 [id number] 06:47:19Interface, External Ris In - 05/05/2021 6:47 AM CDTVentricular Rate 91 BPMAtrial Rate 91 BPMP-R Interval 126 msQRS Duration 78 msQ-T Interval 352 msQTC Calculation(Bazett) 432 msP [place] 44 degreesR [place] 28 degreesT [place] 39 degreesNormal sinus rhythmNormal ECGNo previous ECGs availableConfirmed by MD BELLAMY JOSEPH P ([id number]) on 05/05/2021 6:47:15 [facility] 12 [id number] 06:47:19Interface, External Ris In 05/05/2021 6:47 AM CDTVentricular Rate 91 BPMAtrial Rate 91 BPMP-R Inte rval 126 msQRS Duration 78 msQ-T Interval 352 msQTC Calculation(Bazett) 432 msP [place] 44 degreesR [place] 28 degreesT [place] 39 degreesNormal sinus rhythmNormal ECGNo previous ECGs availableConfirmed by MD BELLAMY JOSEPH P ([id number]) on 05/05/2021 6:47:15 [facility] 12 [id number] 06:47:19Interface, External Ris In 05/05/2021 6:47 AM CDTVentricular Rate 91 BPMAtrial Rate 91 BPMP-R Interval 126 msQRS Duration 78 msQ-T Interval 352 msQTC Calculation(Bazett) 432 msP [place] 44 degreesR [place] 28 degreesT [place] 39 degreesNormal sinus rhythmNormal ECGNo previous ECGs availableConfirmed by OKSANA LANDRUM MD, JOSEPH P ([id number]) on 05/05/2021 6:47:15 [facility] 12 [id number] 06:47:19Interface, External Ris In - 05/05/2021 6:47 AM CDTVentricular Rate 91 BPMAtrial Rate 91 BPMP-R Interval 126 msQRS Duration 78 msQ-T Interval 352 msQTC Calculation(Bazett) 432 msP [place] 44 degreesR [place] 28 degreesT [place] 39 degreesNormal sinus rhythmNormal ECGNo previous ECGs availableConfirmed by MD BELLAMY JOSEPH P ([id number]) on 05/05/2021 6:47:15 [facility] [id number] 06:17:00 Test Item Value Reference Range Interpretation Comments ABO Grouping (test code = 2588) O Rh Factor (test code = 2589) POS [facility], [id number] 06:17:00 Test Item Value Reference Range Interpretation Comments ABO Grouping (test code = 2588) O Rh Factor (test code = 2589) POS [facility], [id number] 06:17:00 Test Item Value Reference Range Interpretation Comments ABO Grouping (test code = 2588) O Rh Factor (test code = 2589) POS [facility], [id number] 06:17:00 Test Item Value Reference Range Interpretation Comments ABO Grouping (test code = 2588) O Rh Factor (test code = 2589) [facility] ([facility] and [facility]) 2021-05-05 05:01:00 Test Item Value Reference Range Interpretation Comments ABO/RH AUTOMATED (BEAKER) (test O POSITIVE code = 2260) Ab Scrn (test code = 890-4) NEGATIVE [facility] ([facility]) 2021-05-05 05:01:00 Test Item Value Reference Range Interpretation Comments ABO/RH AUTOMATED (BEAKER) (test O POSITIVE code = 2260) Ab Scrn (test code = 890-4) [facility]GATIVE [facility] ([facility]) 2021-05-05 05:01:00 Test Item Value Reference Range Interpretation Comments ABO/RH AUTOMATED (BEAKER) (test O POSITIVE code = 2260) Ab Scrn (test code = 890-4) [facility]GATIVE [facility] ([facility]) 2021-05-05 05:01:00 Test Item Value Reference Range Interpretation Comments ABO/RH AUTOMATED (BEAKER) (test O POSITIVE code = 2260) Ab Scrn (test code = 890-4) NEGATIVE [facility]PT/[id number] 04:35:00 Test Item Value Reference Interpretation Comments Range Protime (test code = 13.7 See_Comment [Autom ated 5902-2) message] The system which generated this result transmitted reference range : 11.9 - 14.2 seconds. The reference range was not used to interpret this result as normal/abnormal . INR (test code = 1.07 See_Comment [Automated my3Dreams1-6) message] The system which generated this result [...] valves. Lab Interpretation Normal (test code = 47022-3) [facility]PT/[id number] 04:35:00 Test Item Value Reference Interpretation Comments Range Protime (test code = 13.7 See_Comment [Autom ated 5902-2) message] The system which generated this result transmitted reference range : 11.9 - 14.2 seconds. The reference range was not used to interpret this result as normal/abnormal . INR (test code = 1.07 See_Comment [Automated my3Dreams1-6) message] The system which generated this result [...] valves. Lab Interpretation Normal (test code = 96752-2) [facility]/[id number] 04:35:00 Test Item Value Reference Interpretation Comments [...] valves. Lab Interpretation Normal (test code = 25055-2) [facility]PT/[id number] 04:35:00 Test Item Value Reference Interpretation Comments [...] valves. Lab Interpretation Normal (test code = 96066-8) [facility] CenterPROTHROMBIN TIME/[id number] 04:35:00 Test Item Value Reference Range Interpretation Comments PROTIME (BEAKER) 13.7 seconds 11.9-14.2 (test code = 759) INR (BEAKER) (test 1.07 See_Comment [Automat ed message] code = 370) The system [employer] generated this result transmitted ref erence range: <=5.90. The reference range was not used to int erpret this result as normal/abnormal . RECOMMENDED COUMADIN/WARFARIN INR THERAPY RANGESSTANDARD DOSE: 2.0 - 3.0 Includes: PROPHYLAXIS forvenous thrombosis, systemic embolization; TREATMENT for venous thrombosis and/or pulmonary embolus.HIGH RISK: Target INR is 2.5-3.5 for patients with mechanical heart valves.High Sensitivity Troponin [id number] 01:56:00 Test Item Value Reference Range Interpretation Comments Troponin I HS <4 See_Comment [Automated (test code = message] The 02147-2) system which generated this result transmitted reference range : <=17 pg/ml. The reference range was not used to interpret this result as normal/abnormal . TORRES (test code = [employer] Operator ID - TORRES) [employer] STAT High Sensitivity Troponin-I results should be used in conjunction with other diagnostic information such as ECG, clinical observations and information, and patient symptoms to aid in the diagnosis of CO. Lab Interpretation Normal (test code = 22173-3) [facility] Troponin [id number] 01:56:00 Test Item Value Reference Range Interpretation Comments Troponin I HS <4 See_Comment [Automated (test code = message] The [employer]) system which generated this result transmitted reference range : <=17 pg/ml. The reference range was not used to interpret this result as normal/abnormal . TORRES (test code = [employer] Operator ID - TORRES) [employer] High Sensitivity Troponin-I results should be used in conjunction with other diagnostic information such as ECG, clinical observations and information, and patient symptoms to aid in the diagnosis of CO. Lab Interpretation Normal (test code = 84267-8) [facility] Troponin [id number] 01:56:00 Test Item Value Reference Range Interpretation Comments Troponin I HS <4 See_Comment [Automated (test code = message] The [employer]) system which generated this result transmitted reference range : <=17 pg/ml. The reference range was not used to interpret this result as normal/abnormal . TORRES (test code = [employer] Operator ID - TORRES) [employer] High Sensitivity Troponin-I results should be used in conjunction with other diagnostic information such as ECG, clinical observations and information, and patient symptoms to aid in the diagnosis of CO. Lab Interpretation Normal (test code = 78077-4) [facility] Troponin [id number] 01:56:00 Test Item Value Reference Range Interpretation Comments Troponin I HS <4 See_Comment [Automated (test code = message] The 11082-2) system which generated this result transmitted reference range : <=17 pg/ml. The reference range was not used to interpret this result as normal/abnormal . TORRES (test code = [employer] Operator ID - TORRES) [employer] High Sensitivity Troponin-I results should be used in conjunction with other diagnostic information such as ECG, clinical observations and information, and patient symptoms to aid in the diagnosis of CO. Lab Interpretation Normal (test code = 76886-4) [facility] CenterHIGH SENSITIVITY TROPONIN [id number] 01:56:00 Test Item Value Reference Range Interpretation Comments HIGH SENSITIVITY < pg/ml See_Comment [Automated message] TROPONIN I (test code = The system which 8841700) generated this result transmitted ref erence range: <=17. Th e reference range was not used to interpr et this result as normal/abnormal . [employer] Operator ID - DBThe DRAFTER STRUCTURAL STAT High Sensitivity Troponin-I results should be used in conjunctionwith other diagnostic information such as ECG, clinical observations and information, and patient symptoms to aid in the diagnosis of CO.Ketones, [id number] 01:40:00 Test Item Value Reference Range Interpretation Comments Ketones, Blood (test code = 1103) 0.4 mmol/L <0.4 H Lab Interpretation (test code = Abnormal 53810-1) [facility], [id number] 01:40:00 Test Item Value Reference Range Interpretation Comments Ketones, Blood (test code = 1103) 0.4 mmol/L <0.4 H Lab Interpretation (test code = Abnormal 54992-4) [facility], [id number] 01:40:00 Test Item Value Reference Range Interpretation Comments Ketones, Blood (test code = 1103) 0.4 mmol/L <0.4 H Lab Interpretation (test code = Abnormal 08945-5) [facility], [id number] 01:40:00 Test Item Value Reference Range Interpretation Comments Ketones, Blood (test code = 1103) 0.4 mmol/L <0.4 H Lab Interpretation (test code = Abnormal 19462-3) [facility] [id number] 01:40:00 Test Item Value Reference Range Interpretation Comments KETONES, BLOOD (BEAKER) (test code 0.4 mmol/L <0.4 H = 1103) SARS-CoV2/RT-PCR (Asymptomatic ONLY)2021-05-05 01:30:00 Test Item Value Reference Interpretation Comments Range SARS-COV2/RT-PCR Negative Negative The SARS-Co V-2 (test code = target nucleic 61427-9) acids are not detected in thi s [...] revoked sooner. Fact Sheet for Healthcare Providers: https://www.[employer]/Documents/Xp ert%20Xpress%20SAR S%20CoV-2/Fact%20S heets/302-3802%20S ARS-COV-2%20HEALTH CARE%20PROVIDERS%2 0FACT%20SHEET.pdf Fact Sheet for Healthcare Patients: https://www.[employer]/Documents/Xp ert%20Xpress%20SAR S%20CoV-2/Fact%20S heets/302-3801%20S ARS-COV-2%20PATIEN T%20FACT%20SHEET.p df Lab Interpretation Normal (test code = 91618-4) [facility]05 01:30:00 Test Item Value Reference Interpretation Comments Range SARS-COV2/RT-PCR Negative Negative The SARS-Co V-2 (test code = target nucleic 22744-6) acids are not detected in thi s [...] revoked sooner. Fact Sheet for Healthcare Providers: https://www.[employer]/Documents/Xp ert%20Xpress%20SAR S%20CoV-2/Fact%20S heets/302-3802%20S ARS-COV-2%20HEALTH CARE%20PROVIDERS%2 0FACT%20SHEET.pdf Fact Sheet for Healthcare Patients: https://www.[employer]/Documents/Xp ert%20Xpress%20SAR S%20CoV-2/Fact%20S heets/302-3801%20S ARS-COV-2%20PATIEN T%20FACT%20SHEET.p df Lab Interpretation Normal (test code = 94883-2) [facility]2021-05-05 01:30:00 Test Item Value Reference Interpretation Comments Range SARS-COV2/RT-PCR Negative Negative The SARS-Co V-2 (test code = target nucleic 77186-7) acids are not detected in thi s [...] revoked sooner. Fact Sheet for Healthcare Providers: https://www.[employer]/Documents/Xp ert%20Xpress%20SAR S%20CoV-2/Fact%20S heets/302-3802%20S ARS-COV-2%20HEALTH CARE%20PROVIDERS%2 0FACT%20SHEET.pdf Fact Sheet for Healthcare Patients: https://www.[employer]/Documents/Xp ert%20Xpress%20SAR S%20CoV-2/Fact%20S heets/302-3801%20S ARS-COV-2%20PATIEN T%20FACT%20SHEET.p df Lab Interpretation Normal (test code = 88087-4) [facility]2021-05-05 01:30:00 Test Item Value Reference Interpretation Comments Range SARS-COV2/RT-PCR Negative Negative The SARS-Co V-2 (test code = target nucleic 53513-3) acids are not detected in thi s [...] revoked sooner. Fact Sheet for Healthcare Providers: https://www.[employer]/Documents/Xp ert%20Xpress%20SAR S%20CoV-2/Fact%20S heets/302-3802%20S ARS-COV-2%20HEALTH CARE%20PROVIDERS%2 0FACT%20SHEET.pdf Fact Sheet for Healthcare Patients: https://www.[employer]/Documents/Xp ert%20Xpress%20SAR S%20CoV-2/Fact%20S heets/302-3801%20S ARS-COV-2%20PATIEN T%20FACT%20SHEET.p df Lab Interpretation Normal (test code = 63170-8) [facility])2021-05-05 01:30:00 Test Item Value Reference Range Interpretation Comments SARS-COV2/RT-PCR Negative Negative The SARS-Co V-2 target (test code = nucleic acids a re not 5907469) detected in thi s specimen. Negative result [...] revoked sooner. Fact Sheet for Healthcare Providers: https://www.[employer]/Documents/Xpert%20Xpress%20SARS%20CoV-2/Fact%20Sheets/3023802%20SARS-COV -2%20HEALTHCARE%20PROVIDERS%20FACT%20SHEET.pdf Fact Sheet for Healthcare Patients: https://www.[employer]/Documents/Xpert %20Xpress%20SARS%20CoV-2/Fact%20Sheets/3023801%62UIAR-JZQ-7%20PATIENT%20FACT%20 SHEET.pdfBlood gas, ynrizu0932-01-06 01:22:00 Test Item Value Reference Range Interpretation Comments pH, Niranjan (test code = 7.35 7.32-7.42 6846-6) pCO2, Niranjan (test code = 39 See_Comment L [Aut omated 755) message] The sy stem which generated this result transmitted reference range : 41 - 51 mm Hg. The reference range was not used to interpret this result as normal/abnormal . pO2, Niranjan (test code = 59 See_Comment H [Auto mated 1365-2) message] The sy stem which generated this result transmitted reference range : 25 - 40 mm Hg. The reference range was not used to interpret this result as normal/abnormal . O2 Sat, Niranjan (test code 89.4 % 40-70 H = 2711-0) HCO3, Niranjan (test code = 21 mmol/L 21- 93373-6) Base Excess, Niranjan (test -4.5 mmol/L -2-3 L code = 1927-3) Patient Temperature 37.0 (test code = 8310-5) FIO2 (test code = 1819) 21 Lab Interpretation Abnormal (test code = 65454-6) [facility] gas, [id number] 01:22:00 Test Item Value Reference Range Interpretation [...] Niranjan (test code = 21 mmol/L 21-29 68778-4) Base Excess, Niranjan (test -4.5 mmol/L -2-3 L code = 1927-3) Patient Temperature 37.0 (test code = 8310-5) FIO2 (test code = 1819) 21 Lab Interpretation Abnormal (test code = 44256-8) [facility] gas, [id number] 01:22:00 Test Item Value Reference Range Interpretation [...] Niranjan (test code = 21 mmol/L 21-29 90186-1) Base Excess, Niranjan (test -4.5 mmol/L -2-3 L code = 1927-3) Patient Temperature 37.0 (test code = 8310-5) FIO2 (test code = 1819) 21 Lab Interpretation Abnormal (test code = 33784-6) [facility] gas, [id number] 01:22:00 Test Item Value Reference Range Interpretation [...] Niranjan (test code = 21 mmol/L 21-29 89825-2) Base Excess, Niranjan (test -4.5 mmol/L -2-3 L code = 1927-3) Patient Temperature 37.0 (test code = 8310-5) FIO2 (test code = 1819) 21 Lab Interpretation Abnormal (test code = 92429-2) [facility] GAS, [id number] 01:22:00 Test Item Value Reference Range Interpretation [...] (BEAKER) (test code = 1819) 21.0 ECG/EKG [id number] 23:15:Cherie Guerra MD 05/05/2021 2:11 AMECG/EKG Interpretation Date/Time: 05/04/2021 11:26 PMPerformed by: Cherie Faustin MDAuthorized by: Cherie Faustin MD The ECG was interpreted by ED physician. The ECG is interpreted as sinus rhythm. Rate is normal rate. Heart rate is 91 BPM.ST segments normal. T-wave inversion in lead(s) V1 and V2. Clinical Impression: normal [facility]CH[facility] Womkuzhooimnjl9117-13-44 23:15:Cherie Guerra MD 05/05/2021 2:11 AMECG/EKG Interpretation Date/Time: 05/04/2021 11:26 PMPerformed by: Cherie Faustin MDAuthorized by: Cherie Faustin MD The ECG was interpreted by ED physician. The ECG is interpreted as sinus rhythm. Rate is normal rate. Heart rate is 91 BPM.ST segments normal. T-wave inversion in lead(s) V1 and V2. Clinical Impression: normal ECGCH[facility] OaklandECG/EKG Ziulhtercosazs2451-32-31 23:15:Cherie Guerra MD 05/05/2021 2:11 AMECG/EKG Interpretation Date/Time: 05/04/2021 11:26 PMPerformed by: Cherie Faustin MDAuthorized by: Cherie Faustin MD The ECG was interpreted by ED physician. The ECG is interpreted as sinus rhythm. Rate is normal rate. Heart rate is 91 BPM.ST segments normal. T-wave inversion in lead(s) V1 and V2. Clinical Impression: normal ECGCH[facility] OaklandECG/EKG Gsxprhknmsmirg6656-89-98 23:15:Cherie Guerra MD 05/05/2021 2:11 AMECG/EKG Interpretation Date/Time: 05/04/2021 11:26 PMPerformed by: Cherie Faustin MDAuthorized by: Cherie Faustin MD The ECG was interpreted by ED physician. The ECG is interpreted as sinus rhythm. Rate is normal rate. Heart rate is 91 BPM.ST segments normal. T-wave inversion in lead(s) V1 and V2. Clinical Impression: normal ECGSt. Francis Medical CenterHEPATIC FUNCTION [id number] 22:01:00 Test Item Value Reference Range Interpretation [...] Specimen moderately (test code = 347) hemolyzed [employer] Operator ID - [id number] 21:53:00 Test Item Value Reference Range Interpretation Comments Amylase (test code = 143 U/L 25-125 H Specime n 1798-8) markedly hemolyzed TORRES (test code = TORRES) [employer] Operator ID - DB Lab Interpretation Abnormal (test code = 61851-2) [facility] 21:53:00 Test Item Value Reference Range Interpretation Comments Lipase (test code = 3040-3) 97 U/L 8-78 H TORRES (test code = TORRES) [employer] Operator ID - DB Lab Interpretation (test Abnormal code = 51521-8) [facility] CenterAmylase2021-08-23 21:53:00 Test Item Value Reference Range Interpretation Comments Amylase (test code = 143 U/L 25-125 H Specime n 1798-8) markedly hemolyzed TORRES (test code = TORRES) [employer] Operator ID - DB Lab Interpretation Abnormal (test code = 89513-1) [facility]21-[facility] 21:53:00 Test Item Value Reference Range Interpretation Comments Lipase (test code = 3040-3) 97 U/L 8-78 H TORRES (test code = TORRES) [employer] Operator ID - DB Lab Interpretation (test Abnormal code = 45951-8) [facility] Center[facility]ylase2021-08-23 21:53:00 Test Item Value Reference Range Interpretation Comments Amylase (test code = 143 U/L 25-125 H Specime n 1798-8) markedly hemolyzed TORRES (test code = TORRES) [employer] Operator ID - DB Lab Interpretation Abnormal (test code = 36829-3) [facility] 21:53:00 Test Item Value Reference Range Interpretation Comments Lipase (test code = 3040-3) 97 U/L 8-78 H TORRES (test code = TORRES) [employer] Operator ID - DB Lab Interpretation (test Abnormal code = 40920-9) [facility] Center[facility]ylase2021-08-23 21:53:00 Test Item Value Reference Range Interpretation Comments Amylase (test code = 143 U/L 25-125 H Specime n 1798-8) markedly hemolyzed TORRES (test code = TORRES) [employer] Operator ID - DB Lab Interpretation Abnormal (test code = 06919-1) [facility]-23 21:53:00 Test Item Value Reference Range Interpretation Comments Lipase (test code = 3040-3) 97 U/L 8-78 H TORRES (test code = TORRES) [employer] Operator ID - DB Lab Interpretation (test Abnormal code = 77045-7) [facility] CenterBASIC METABOLIC [id number] 21:53:00 Test Item Value Reference Range Interpretation [...] S NOT APPLICABLE FOR DIALYSIS PATIEN TS. [employer] Operator ID - [id number] 21:53:00 Test Item Value Reference Range Interpretation Comments AMYLASE (BEAKER) (test 143 U/L 25-125 H Speci men markedly code = 349) hemolyzed [employer] Operator ID - [id number] 21:53:00 Test Item Value Reference Range Interpretation Comments LIPASE (BEAKER) (test code = 749) 97 U/L 8-78 H [employer] Operator ID - DBCBC W/PLT COUNT & AUTO [id number] 19:51:00 Test Item Value Reference Range Interpretation [...] PERCENT (BEAKER) (test code = 2801) POC-Glucose [id number] 08:41:00 Test Item Value Reference Range Interpretation Comments POC-Glucose Meter (test 104 mg/dL 70-110 : TE STED AT [facility] code = 1538) [address] [place] [address], 770 30: [employer] Operator/Techni aldo ID = [id number] for HUSSEIN LEMON Lab Interpretation (test Normal code = 39324-7) [facility]-Glucose [id number] 08:41:00 Test Item Value Reference Range Interpretation Comments POC-Glucose Meter (test 104 mg/dL 70-110 : TE STED AT [facility] code = 1538) [address] [place] [address], 770 30: [employer] Operator/Techni aldo ID = [id number] for HUSSEIN LEMON Lab Interpretation (test Normal code = 70032-9) [facility]-Glucose [id number] 08:41:00 Test Item Value Reference Range Interpretation Comments POC-Glucose Meter (test 104 mg/dL 70-110 : TE STED AT [facility] code = 1538) [address] [facility], 770 30: [employer] Operator/Techni aldo ID = [id number] for HUSSEIN LEMON Lab Interpretation (test Normal code = 99586-7) [facility]-Glucose [id number] 08:41:00 Test Item Value Reference Range Interpretation Comments POC-Glucose Meter (test 104 mg/dL 70-110 : TE STED AT [facility] code = 1538) [address] [facility], 770 30: [employer] Operator/Techni aldo ID = [id number] for HUSSEIN LEMON Lab Interpretation (test Normal code = 77750-8) [facility]-GLUCOSE [id number] 08:41:00 Test Item Value Reference Range Interpretation Comments POC-GLUCOSE METER 104 mg/dL 70-110 : TESTED A T [facility] 67[address] (BEAKER) (test code = [facility], 1538) [address]: [employer] Operator/Techni aldo ID = [id number] for HUSSEIN DAVID Comprehensive metabolic [id number] 06:49:00 Test Item Value Reference Range Interpretation Comments Protein, Total (test 6.8 See_Comment [Autom ated code = 2885-2) message] The system which generated this result transmit lane reference range : 6.0 - 8.3 gm/dL . The reference range was not u sed to interpret th is result as normal/abnormal . Albumin (test code = 3.5 g/dL 3.5-5 43952-3) Alkaline Phosphatase 44 U/L 40-150 (test code = 6768-6) Total Bilirubin (test 0.3 mg/dL 0.2-1.2 code = 1975-2) Sodium (test code = 139 meq/L 445-381 2759-2) Potassium (test code 3.8 meq/L 3.5-5.1 = 2823-3) Chloride (test code = 104 meq/L 98-107 2075-0) CO2 (test code = 27 meq/L 22-29 8-9) BUN (test code = 12 mg/dL 7-21 3094-0) Creatinine (test code 1.05 mg/dL 0.57-1.25 = 2160-0) Glucose (test code = 79 mg/dL 70-105 2345-7) Calcium (test code = 8.4 mg/dL 8.4-10.2 80242-4) AST (test code = 49 U/L 5-34 H 1920-8) ALT (test code = 41 U/L 6-55 1742-6) EGFR (test code = 52 mL/min/1.[address] [place] [address]-2) NOT ACCURATE CREATININE CLEARANCE IN PREDICTING GLOMERULAR FILTRATION RATE . ESTIMATED GFR I S NOT APPLICABLE FOR DIALYSIS PATIEN TORRES (test code = TORRES) [employer] Operator ID - HUMBLE M Lab Interpretation Abnormal (test code = 82452-1) [facility] CenterComprehensive metabolic [id number] 06:49:00 Test Item Value Reference Range Interpretation Comments Protein, Total (test 6.8 See_Comment [Autom ated code = 2885-2) message] The system which generated this result transmit lane reference range : 6.0 - 8.3 gm/dL . The reference range was not u sed to interpret th is result as normal/abnormal . Albumin (test code = 3.5 g/dL 3.5-5 90231-1) Alkaline Phosphatase 44 U/L 40-150 (test code = 6768-6) Total Bilirubin (test 0.3 mg/dL 0.2-1.2 code = 1974-2) Sodium (test code = 139 meq/L 342-208 2505-2) Potassium (test code 3.8 meq/L 3.5-5.1 = 2823-3) Chloride (test code = 104 meq/L 98-107 5-0) CO2 (test code = 27 meq/L 22-29 2027-9) BUN (test code = 12 mg/dL 7-21 3094-0) Creatinine (test code 1.05 mg/dL 0.57-1.25 = 2160-0) Glucose (test code = 79 mg/dL 70-105 2345-7) Calcium (test code = 8.4 mg/dL 8.4-10.2 07016-5) AST (test code = 49 U/L 5-34 H 1920-8) ALT (test code = 41 U/L 6-55 1742-6) EGFR (test code = 52 mL/min/1.[address] [place] [address]-4) NOT ACCURATE CREATININE CLEARANCE IN PREDICTING GLOMERULAR FILTRATION RATE . ESTIMATED GFR I S NOT APPLICABLE FOR DIALYSIS PATIEN TS. TORRES (test code = TORRES) [employer] Operator ID - HUMBLE M Lab Interpretation Abnormal (test code = 98143-7) [facility]Com[facility] [id number] 06:49:00 Test Item Value Reference Range Interpretation Comments Protein, Total (test 6.8 See_Comment [Autom ated code = 2885-2) message] The system which generated this result transmit lane reference range : 6.0 - 8.3 gm/dL . The reference range was not u sed to interpret th is result as normal/abnormal . Albumin (test code = 3.5 g/dL 3.5-5 41576-9) Alkaline Phosphatase 44 U/L 40-150 (test code = 6768-6) Total Bilirubin (test 0.3 mg/dL 0.2-1.2 code = 1974-2) Sodium (test code = 139 meq/L 144-915 4147-2) Potassium (test code 3.8 meq/L 3.5-5.1 = 2823-3) Chloride (test code = 104 meq/L 98-107 2075-0) CO2 (test code = 27 meq/L 22-29 8-9) BUN (test code = 12 mg/dL 7-21 3094-0) Creatinine (test code 1.05 mg/dL 0.57-1.25 = 2160-0) Glucose (test code = 79 mg/dL 70-105 2345-7) Calcium (test code = 8.4 mg/dL 8.4-10.2 64179-6) AST (test code = 49 U/L 5-34 H 1920-8) ALT (test code = 41 U/L 1742-6) EGFR (test code = 52 mL/min/1.[address] [place] [address]-8) NOT ACCURATE CREATININE CLEARANCE IN PREDICTING GLOMERULAR FILTRATION RATE . ESTIMATED GFR I S NOT APPLICABLE FOR DIALYSIS PATIEN TS. TORRES (test code = TORRES) [employer] Operator ID - HUMBLE M Lab Interpretation Abnormal (test code = 49731-3) [facility] [id number] 06:49:00 Test Item Value Reference Range Interpretation Comments Protein, Total (test 6.8 See_Comment [Autom ated code = 2885-2) message] The system which generated this result transmit lane reference range : 6.0 - 8.3 gm/dL . The reference range was not u sed to interpret th is result as normal/abnormal . Albumin (test code = 3.5 g/dL 3.5-5 31278-8) Alkaline Phosphatase 44 U/L 40-150 (test code = 6768-6) Total Bilirubin (test 0.3 mg/dL 0.2-1.2 code = 1975-2) Sodium (test code = 139 meq/L 262-600 1845-2) Potassium (test code 3.8 meq/L 3.5-5.1 = 2823-3) Chloride (test code = 104 meq/L 98-107 2075-0) CO2 (test code = 27 meq/L 22-29 2028-9) BUN (test code = 12 mg/dL 7-21 3094-0) Creatinine (test code 1.05 mg/dL 0.57-1.25 = 2160-0) Glucose (test code = 79 mg/dL 70-105 2345-7) Calcium (test code = 8.4 mg/dL 8.4-10.2 46805-7) AST (test code = 49 U/L 5-34 H 1920-8) ALT (test code = 41 U/L 6-55 1742-6) EGFR (test code = 52 mL/min/1.[address] [place] [address]-5) NOT ACCURATE CREATININE CLEARANCE IN PREDICTING GLOMERULAR FILTRATION RATE . ESTIMATED GFR I S NOT APPLICABLE FOR DIALYSIS PATIEN TS. TORRES (test code = TORRES) [employer] Operator ID - HUMBLE M Lab Interpretation Abnormal (test code = 46695-9) [facility] CenterCOMPREHENSIVE METABOLIC [id number] 06:49:00 Test Item Value Reference Range Interpretation [...] S NOT APPLICABLE FOR DIALYSIS PATIEN TS. [employer] Operator ID - HUMBLE MPOCT-GLUCOSE [id number] 16:54:00 Test Item Value Reference Range Interpretation Comments POC-GLUCOSE METER 171 mg/dL 70-110 H : TESTED A T [facility] [address] (BEAKER) (test code = [place], 1538) [address]: [employer] Operator/Techni aldo ID = [id number] for ALBINO GONZALEZ Hemoglobin [id number] 15:22:00 Test Item Value Reference Range Interpretation Comments Hemoglobin A1C (test code = 4548-4) 6.2 % 4.3-6.1 H Lab Interpretation (test code = Abnormal 57964-5) [facility] Center[facility] [id number] 15:22:00 Test Item Value Reference Range Interpretation Comments Hemoglobin A1C (test code = 4548-4) 6.2 % 4.3-6.1 H Lab Interpretation (test code = Abnormal 37612-2) [facility] CenterH[facility] [id number] 15:22:00 Test Item Value Reference Range Interpretation Comments Hemoglobin A1C (test code = 4548-4) 6.2 % 4.3-6.1 H Lab Interpretation (test code = Abnormal 84346-9) [facility] CenterH[facility] [id number] 15:22:00 Test Item Value Reference Range Interpretation Comments Hemoglobin A1C (test code = 4548-4) 6.2 % 4.3-6.1 H Lab Interpretation (test code = Abnormal 75961-6) [facility] CenterHEMOGLOBIN [id number] 15:22:00 Test Item Value Reference Range Interpretation Comments HEMOGLOBIN A1C (BEAKER) (test code = 6.2 % 4.3-6.1 H 368) POCT-GLUCOSE [id number] 12:56:00 Test Item Value Reference Range Interpretation Comments POC-GLUCOSE METER 93 mg/dL 70-110 : Notified RN/MD: TESTED (ZONIAAKER) (test code = AT [facility] [address] [facility] 1538) [facility], [facility] 30: [employer] Unit Operator/Techni aldo ID = [id number] for Simm Arely gorman [place], [id number] 12:02:00Reason for exam:->[facility] : 1950 Sex: FFluoroscopic unit utilized for a procedure performed in the OR. No interpretation was requested. Refer to the operative report for findings. Refer to PACS for patient radiation dose information.[facility] Endoscopic Retrograde Peziiohcsluguiilhsdllpco9058-86-65 12:02:00Interface, External Ris In 03/10/2021 12:18 PM CDTFluoroscopic unit utilized for a procedure performed in the OR. No interpretation was requested. Refer to the operative report for findings. Referto PACS for patient radiation dose information.[facility] Endoscopic Retrograde Ezqyxcfqiwyugqsnprxikccj3437-54-40 12:02:00Interface, External Ris In 03/10/2021 12:18 PM CDTFluoroscopic unit utilized for a procedure performed in the OR. No interpretation was requested. Refer to the operative report for findings. Referto PACS for patient radiation dose information.[facility] Endoscopic Retrograde Execekurebtxnozomrappuum6334-38-14 12:02:00Interface, External Ris In 03/10/2021 12:18 PM CDTFluoroscopic unit utilized for a procedure performed in the OR. No interpretation was requested. Refer to the operative report for findings. Referto PACS for patient radiation dose information.[facility] Endoscopic Retrograde Juzcvlompjsvohvjjswxcvpa3124-50-98 12:02:00Interface, External Ris In 03/10/2021 12:18 PM CDTFluoroscopic unit utilized for a procedure performed in the OR. No interpretation was requested. Refer to the operative report for findings. Referto PACS for patient radiation dose information.[facility] CenterPO[facility] [id number] 09:27:00 Test Item Value Reference Range Interpretation Comments POC-GLUCOSE METER 74 mg/dL 70-110 : TESTED A T [facility] [address] ([facility]) (test code = [facility], 1538) [address]: [employer] Treating Unit Operator/Techni aldo ID = [id number] for ALBINO ROSS COMPREHENSIVE METABOLIC [id number] 05:49:00 Test Item Value Reference Range Interpretation Comments TOTAL PROTEIN 6.8 gm/dL 6.0-8.3 ([facility]) (test code = 770) ALBUMIN ([facility]) 3.5 g/dL 3.5-5.0 (test code = 1145) ALKALINE PHOSPHATASE 45 U/L 40-150 ([facility]) (test code = 346) BILIRUBIN TOTAL 0.3 [...] S NOT APPLICABLE FOR DIALYSIS PATIEN TS. [employer] Treating Unit Operator ID - HUMBLE [facility] (Hemogram only)2021-03-10 05:10:00 Test Item Value Reference Range Interpretation Comments WBC (test code = 6690-2) 9.1 See_Comment [A utomated message] The system [employer] generated this result transmitted ref erence range: 3.5 - 10 .5 K/L. The refe rence range was not u sed to interpret this result as normal/abnor mal. RBC (test code = 789-8) 3.57 See_Comment L [Au tomated message] The system [employer] generated this result transmitted ref erence range: 3.93 - 5 .22 M/L. The refe rence range was not u sed to interpret this result as normal/abnor mal. MCHC (test code = 786-4) 30.9 See_Comment L [A utomated message] The system [employer] generated this result transmitted ref erence range: [...] See_Comment [Aut omated message] 777-3) The system [employer] generated this result transmitted ref erence range: 150 - 45 0 K/CU MM. The referen ce range was not u sed to interpret this result as normal/abnor mal. MPV (test code = 9.3 fL 9.4-12.3 L 98526-1) nRBC (test code = 413) 0 See_Comment [Aut omated message] The system [employer] generated this result transmitted ref erence range: 0 - 0 /1 00 WBC. The refere nce range was not u sed to interpret this result as normal/abnor mal. Lab Interpretation (test Abnormal code = 93676-6) [facility]:10:00 Test Item Value Reference Range Interpretation Comments WBC (test code = 6690-2) 9.1 See_Comment [A utomated message] The system [employer] generated this result transmitted ref erence range: 3.5 - 10 .5 K/L. The refe rence range was not u sed to interpret this result as normal/abnor mal. RBC (test code = 789-8) 3.57 See_Comment L [Au tomated message] The system [employer] generated this result transmitted ref erence range: 3.93 - 5 .22 M/L. The refe rence range was not u sed to interpret this result as normal/abnor mal. MCHC (test code = 786-4) 30.9 See_Comment L [A utomated message] The system [employer] generated this result transmitted ref erence range: [...] See_Comment [Aut omated message] 777-3) The system [employer] generated this result transmitted ref erence range: 150 - 45 0 K/CU MM. The referen ce range was not u sed to interpret this result as normal/abnor mal. MPV (test code = 9.3 fL 9.4-12.3 L 66366-8) nRBC (test code = 413) 0 See_Comment [Aut omated message] The system [employer] generated this result transmitted ref erence range: 0 - 0 /1 00 WBC. The refere nce range was not u sed to interpret this result as normal/abnor mal. Lab Interpretation (test Abnormal code = 89149-4) [facility] 05:10:00 Test Item Value Reference Range Interpretation Comments WBC (test code = 6690-2) 9.1 See_Comment [A utomated message] The system [employer] generated this result transmitted ref erence range: 3.5 - 10 .5 K/L. The refe rence range was not u sed to interpret this result as normal/abnor mal. RBC (test code = 789-8) 3.57 See_Comment L [Au tomated message] The system [employer] generated this result transmitted ref erence range: 3.93 - 5 .22 M/L. The refe rence range was not u sed to interpret this result as normal/abnor mal. MCHC (test code = 786-4) 30.9 See_Comment L [A utomated message] The system [employer] generated this result transmitted ref erence range: [...] See_Comment [Aut omated message] 777-3) The system [employer] generated this result transmitted ref erence range: 150 - 45 0 K/CU MM. The referen ce range was not u sed to interpret this result as normal/abnor mal. MPV (test code = 9.3 fL 9.4-12.3 L 77921-7) nRBC (test code = 413) 0 See_Comment [Aut omated message] The system [employer] generated this result transmitted ref erence range: 0 - 0 /1 00 WBC. The refere nce range was not u sed to interpret this result as normal/abnor mal. Lab Interpretation (test Abnormal code = 09628-8) [facility] 05:10:00 Test Item Value Reference Range Interpretation Comments WBC (test code = 6690-2) 9.1 See_Comment [A utomated message] The system [employer] generated this result transmitted ref erence range: 3.5 - 10 .5 K/L. The refe rence range was not u sed to interpret this result as normal/abnor mal. RBC (test code = 789-8) 3.57 See_Comment L [Au tomated message] The system [employer] generated this result transmitted ref erence range: 3.93 - 5 .22 M/L. The refe rence range was not u sed to interpret this result as normal/abnor mal. MCHC (test code = 786-4) 30.9 See_Comment L [A utomated message] The system [employer] generated this result transmitted ref erence range: [...] See_Comment [Aut omated message] 777-3) The system [employer] generated this result transmitted ref erence range: 150 - 45 0 K/CU MM. The referen ce range was not u sed to interpret this result as normal/abnor mal. MPV (test code = 9.3 fL 9.4-12.3 L 62303-7) nRBC (test code = 413) 0 See_Comment [Aut omated message] The system [employer] generated this result transmitted ref erence range: 0 - 0 /1 00 WBC. The refere nce range was not u sed to interpret this result as normal/abnor mal. Lab Interpretation (test Abnormal code = 83698-7) [facility] (HEMOGRAM ONLY)2021-03-10 05:10:00 Test [...] 0-0 (BEAKER) (test code = 413) POCT-GLUCOSE [id number] 00:05:00 Test Item Value Reference Range Interpretation Comments POC-GLUCOSE METER 83 mg/dL 70-110 : TESTED A T [facility] ([facility]) (test code = [place], 1538) [address]: [employer] Operator/Techni aldo ID = [id number] for BRENDA VENCES SARS-COV2/RT-PCR ([facility])2021-03-09 23:58:00 Test Item Value Reference Range Interpretation Comments SARS-COV2/RT-PCR (test Negative Not Detected, Negative, code = 4883581) See external report for linked test SARS-COV-2 PERFORMING LAB [facility] (test code = 4175144) Negative result for this test determines that [...] 564(g) of the Act.Fact Sheet for Healthcare Providers:https://www.[employer]/sites/default/files/product/documents/Fact_Shee l_VC_Vbjdmooua_Dkbi_MPTM-MyM-3.pdfFact Sheet for Healthcare Patients:https://www.[employer]/sites/default/files/product/ documents/Sdnh_Gtupr_Lvbmwvkq_Mowa_FANE-OdK-6.pdfPerforming Laboratory:[facility], [place] [address]CEHF-CFHCKWT METER 2021-03-09 17:34:00 Test Item Value Reference Range Interpretation Comments POC-GLUCOSE METER 97 mg/dL 70-110 : TESTED A T [facility] ([facility]) (test code = FORTUNATO Kaba [facility], 1538) [address]: [employer] Operator/Techni aldo ID = [id number] for ALBINO ROSS MR, ABDOMEN, [id number] 17:11:00Unlisted Reason for Exam - Click Yes and Enter Reason Below->NoPatient with hyperdense material seen in distal CBD on [facility] : 1950 Sex: [...] 12/29/2005 but appears chronic Signed: [facility] Verified Date/Time: 03/09/2021 17:11:18 Reading Location: [address] Transitional Reading Room MR abdomen without IV contrast [id number] 17:11:00 Interface, External Ris In - 03/09/2021 [...] Verified Date/Time: 03/09/2021 17:11:18 Reading Location: [address] Transitional Reading Room [facility] abdomen without IV contrast [id number] 17:11:00 Interface, External Ris In - 03/09/2021 [...] Alyeport Verified Date/Time: 03/09/2021 17:11:18 Reading Location: [facility] C013 Transitional Reading Room [facility] abdomen without IV contrast [id number] 17:11:00 Interface, External Ris In - 03/09/2021 [...] Verified Date/Time: 03/09/2021 17:11:18 Reading Location: [address] Transitional Reading Room [facility] abdomen without IV contrast [id number] 17:11:00 Interface, External Ris In - 03/09/2021 [...] Verified Date/Time: 03/09/2021 17:11:18 Reading Location: [address] Transitional Reading Room [facility] [id number] 12:41:00 Test Item Value Reference Range Interpretation Comments POC-GLUCOSE METER 92 mg/dL 70-110 : TESTED A T [facility] (BEAKER) (test code = [place]O Kaba [facility], 1538) [address]: [employer] Operator/Techni aldo ID = [id number] for TEZE NO, ALBINO Urinalysis w/Microscopic + Reflex to [id number] 11:21:00 Test Item Value Reference Range Interpretation Comments Color, UA (test code Light Yellow = 5778-6) Clarity, UA (test Clear code = 5767-9) Specific [place], UA 1.033 1.001-1.035 (test code = 5811-5) pH, UA (test code = 5.5 5.0-8.0 5803-2) Protein, UA (test Negative Negative code = 77462-4) Glucose, UA (test Negative Negative code = 365) Ketones, UA (test Negative Negative code = 2514-8) Bilirubin, UA (test Negative Negative code = 75105-2) Blood, UA (test code Trace Negative A = 80178-1) Nitrite, UA (test Negative Negative code = 5802-4) Leukocytes, UA (test Negative Negative code = 5799-2) Urobilinogen, UA 0.2 mg/dL 0.2-1 (test code = 72477-8) RBC, UA (test code = 2 See_Comment [Autom ated 82954-6) message] The system which generated this result [...] Bacteria, UA (test None Seen code = 60692-5) Mucus (test code = Rare 8247-9) Squam Epithel, UA 1 See_Comment [Automate d (test code = 78827-9) messag e] The system which generated this result transmit lane reference range : /HPF. The reference range was not used to interpret this result as normal/abnormal . Crystals, Urine (test None Seen code = 21043-1) Specimen Source (test code = 2795) TORRES (test code = TORRES) [employer] Operator ID - [auto][employer] Treating Unit Operator ID - tech Lab Interpretation Abnormal (test code = 97182-9) [facility] Reflex to Culture 2021-03-09 11:21:00 Test Item Value Reference Range Interpretation Comments Color, UA (test code Light Yellow = 5778-6) Clarity, UA (test Clear code = 5767-9) Specific [place], UA 1.033 1.001-1.035 (test code = 5811-5) pH, UA (test code = 5.5 5.0-8.0 5803-2) Protein, UA (test Negative Negative code = 16945-7) Glucose, UA (test Negative Negative code = 365) Ketones, UA (test Negative Negative code = 2514-8) Bilirubin, UA (test Negative Negative code = 01069-5) Blood, UA (test code Trace Negative A = 89931-2) Nitrite, UA (test Negative Negative code = 5802-4) Leukocytes, UA (test Negative Negative code = 5799-2) Urobilinogen, UA 0.2 mg/dL 0.2-1 (test code = 20839-9) RBC, UA (test code = 2 See_Comment [Autom ated 49079-2) message] The system which generated this result [...] Bacteria, UA (test None Seen code = 62241-4) Mucus (test code = Rare 8247-9) Squam Epithel, UA 1 See_Comment [Automate d (test code = 22297-1) messag e] The system which generated this result transmit lane reference range : /HPF. The reference range was not used to interpret this result as normal/abnormal . Crystals, Urine (test None Seen code = 77197-7) Specimen Source (test code = 2795) TORRES (test code = TORRES) [employer] Operator ID - [auto][employer] Treating [employer] Operator ID - tech Lab Interpretation Abnormal (test code = 71743-0) [facility] + Reflex to Culture 2021-03-09 11:21:00 Test Item Value Reference Range Interpretation Comments Color, UA (test code Light Yellow = 5778-6) Clarity, UA (test Clear code = 5767-9) Specific [place], UA 1.033 1.001-1.035 (test code = 5811-5) pH, UA (test code = 5.5 5.0-8.0 5803-2) Protein, UA (test Negative Negative code = 33294-6) Glucose, UA (test Negative Negative code = 365) Ketones, UA (test Negative Negative code = 2514-8) Bilirubin, UA (test Negative Negative code = 71178-0) Blood, UA (test code Trace Negative A = 67345-0) Nitrite, UA (test Negative Negative code = 5802-4) Leukocytes, UA (test Negative Negative code = 5799-2) Urobilinogen, UA 0.2 mg/dL 0.2-1 (test code = 35386-0) RBC, UA (test code = 2 See_Comment [Autom ated 97723-5) message] The system which generated this result [...] Bacteria, UA (test None Seen code = 03513-7) Mucus (test code = Rare 8247-9) Squam Epithel, UA 1 See_Comment [Automate d (test code = 58896-8) messag e] The system which generated this result transmit lane reference range : /HPF. The reference range was not used to interpret this result as normal/abnormal . Crystals, Urine (test None Seen code = 64345-2) Specimen Source (test code = 2795) TORRES (test code = TORRES) [employer] Operator ID - [auto][employer] Treating [employer] Operator ID - tech Lab Interpretation Abnormal (test code = 18206-0) [facility] + Reflex to Culture 2021-03-09 11:21:00 Test Item Value Reference Range Interpretation Comments Color, UA (test code Light Yellow = 5778-6) Clarity, UA (test Clear code = 5767-9) Specific [place], UA 1.033 1.001-1.035 (test code = 5811-5) pH, UA (test code = 5.5 5.0-8.0 5803-2) Protein, UA (test Negative Negative code = 31289-9) Glucose, UA (test Negative Negative code = 365) Ketones, UA (test Negative Negative code = 2514-8) Bilirubin, UA (test Negative Negative code = 46690-0) Blood, UA (test code Trace Negative A = 04374-5) Nitrite, UA (test Negative Negative code = 5802-4) Leukocytes, UA (test Negative Negative code = 5799-2) Urobilinogen, UA 0.2 mg/dL 0.2-1 (test code = 63365-1) RBC, UA (test code = 2 See_Comment [Autom ated 53993-9) message] The system which generated this result [...] Bacteria, UA (test None Seen code = 51705-5) Mucus (test code = Rare 8247-9) Squam Epithel, UA 1 See_Comment [Automate d (test code = 02653-2) messag e] The system which generated this result transmit lane reference range : /HPF. The reference range was not used to interpret this result as normal/abnormal . Crystals, Urine (test None Seen code = 43968-8) Specimen Source (test code = 2795) TORRES (test code = TORRES) [employer] Operator ID - [auto][employer] Treating Unit Operator ID - tech Lab Interpretation Abnormal (test code = 10737-7) [facility] URINE [id number] 11:21:00 Test Item Value Reference Range Interpretation [...] = 1521) SOURCE(BEAKER) (test code = 2795) [employer] Operator ID - [auto][employer] Operator ID - techHEMOGLOBIN [id number] 10:22:00 Test Item Value Reference Range Interpretation Comments HEMOGLOBIN A1C (BEAKER) (test code = 6.1 % 4.3-6.1 368) [id number] 06:48:00 Test Item Value Reference Range Interpretation Comments Magnesium (test code = 2.1 mg/dL 1.6-2.6 91211-9) TORRES (test code = TORRES) [employer] Operator ID - ELVIN W Lab Interpretation (test Normal code = 31018-3) [facility]28 06:48:00 Test Item Value Reference Range Interpretation Comments Magnesium (test code = 2.1 mg/dL 1.6-2.6 38487-2) TORRES (test code = TORRES) [employer] Operator ID - ELVIN W Lab Interpretation (test Normal code = 02963-7) [facility]21-[facility]-28 06:48:00 Test Item Value Reference Range Interpretation Comments Magnesium (test code = 2.1 mg/dL 1.6-2.6 14157-7) TORRES (test code = TORRES) [employer] Operator ID - ELVIN W Lab Interpretation (test Normal code = 46890-6) [facility]21-[facility]-28 06:48:00 Test Item Value Reference Range Interpretation Comments Magnesium (test code = 2.1 mg/dL 1.6-2.6 36115-7) TORRES (test code = TORRES) [employer] Operator ID - ELVIN W Lab Interpretation (test Normal code = 76495-8) [facility]OLIC [id number] 06:48:00 Test Item Value Reference Range Interpretation [...] S NOT APPLICABLE FOR DIALYSIS PATIEN TS. [employer] Operator ID - ELVIN [id number] 06:48:00 Test Item Value Reference Range Interpretation Comments MAGNESIUM (BEAKER) (test code = 2.1 mg/dL 1.6-2.6 627) [employer] Operator ID - ELVIN WHEPATIC FUNCTION [id number] 06:48:00 Test Item Value Reference Range Interpretation [...] (test code = 30 U/L 6-55 347) [employer] Operator ID - ELVIN WPROTHROMBIN TIME/[id number] 06:32:00 Test Item Value Reference Range Interpretation Comments PROTIME (BEAKER) 12.9 seconds 11.9-14.2 (test code = 759) INR (BEAKER) (test 0.99 See_Comment [Automat ed message] code = 370) The system [employer] generated this result transmitted ref erence range: [...] code = 2801) MRI Brain wo contrast [id number] 16:25:00Patient Name: RIYA BLAKELY TRANDOB: 1950. Age: 67 years. Gender: Female.MR: [id number]. Location: [facility]. Provider: Hollie Osorio MD.EXAM: Brain wo [...] intracranial abnormality. Mild chronicmicroangiopathic ischemic gliosis. SL: [id number] by: Finesse Dias MDDictated Date/time: 0 02/08/18 17:31Electronically Signed by: Finesse Dias MD 02/08/1817:40FINALREPORTUnMcKay-Dee [facility] PhysiciansCOREWE[facility] Brain w/wo contrast [id number] 13:39:00 Test Item Value Reference Range Interpretation Comments Brain w/wo contrast MRI Cancel Reason: Exam (test code = Brain w/wo Replaced contrast MRI) [facility]"
[2021-12-30 17:10] LABS: Hematocrit 32.3 % (36.0-45.0); Lymphocytes % 16.9 % (15.3-44.8); MPV 6.9 fL (7.6-11.3); RBC Red Blood Cell Count 3.51 M/uL (3.86-4.86)
[2021-12-30 17:11] LABS: Protime INR 0.91
[2021-12-30] MEDS ORDERED: DIPHENHYDRAMINE 50 MG/ML VIAL ONE (17:16)
[2021-12-30] MEDS ORDERED: NA CHLORIDE 0.9% 1,000 ML ONE (17:17)
[2021-12-30] MEDS ORDERED: FAMOTIDINE 20 MG/2 ML VIAL IV ONE (17:17)
--- NOTE | 2021-12-30 17:32 | RAD REPORT ---
EXAM DESCRIPTION: Jose Single View12/30/2021 5:24 pm CLINICAL HISTORY: cough COMPARISON: 2020 FINDINGS: The lungs appear clear of acute infiltrate. The heart is normal size IMPRESSION: No acute abnormalities displayed
[2021-12-30 17:34] LABS: ALT/SGPT 25 U/L (12-78); AST/SGOT 17 U/L (15-37); Albumin 3.3 g/dL (3.4-5.0); Alkaline Phosphatase 76 U/L (45-117); BUN Blood Urea Nitrogen 30 mg/dL (7-18); Bicarbonate 28 mmol/L (21-32); Bilirubin Total 0.2 mg/dL (0.2-1.0); Glucose Level 140 mg/dL (74-106); Lipase 200 U/L (73-393); Magnesium 2.1 mg/dL (1.8-2.4); NT PRO-BNP 234 pg/mL (<125); Potassium 3.9 mmol/L (3.5-5.1); Protein, Total 7.6 g/dL (6.4-8.2); Sodium Level 138 mmol/L (136-145); Troponin High Sensitivity 6.6 pg/mL (<58.9)
[2021-12-30 17:41] LABS: Bilirubin Direct < 0.1 mg/dL (0-0.2)
--- NOTE | 2021-12-30 18:00 | EDPHYS ---
Physician Documentation [facility] Name: Alberto Botello Age: 71 yrs Sex: Female : 1950 Arrival Date: 12/30/2021 Time: 15:59 Bed 20 Private MD: Alis Jamison H ED Physician Rob Galo HPI: 12/30 16:55 This 71 yrs old Female presents to ER via Ambulatory with complaints of sarah Facial Swelling, Hand Swelling. 16:55 The patient or guardian reports swelling. sraah Historical: - Allergies: 16:23 No Known Allergies; ab2 - PMHx: 16:23 Anxiety; Chronic pain; Diabetes - NIDDM; Hepatitis; Hypertension; Osteoporosis; ab2 Pancreatitis; - PSHx: 16:23 Cholecystectomy; ab2 - Immunization history:: Adult Immunizations up to date. - Social history:: Smoking status: Patient denies any tobacco usage or history of. ROS: 16:57 Constitutional: Negative for fever, chills, and weight loss, Eyes: Negative for injury, sarah pain, redness, and discharge, ENT: Negative for injury, pain, and discharge, Neck: Negative for injury, pain, and swelling, Cardiovascular: Negative for chest pain, palpitations, and edema, Respiratory: Negative for shortness of breath, cough, wheezing, and pleuritic chest pain, Abdomen/GI: Negative for abdominal pain, nausea, vomiting, diarrhea, and constipation, Back: Negative for injury and pain, : Negative for injury, bleeding, discharge, and swelling, Skin: Negative for injury, rash, and discoloration, Neuro: Negative for headache, weakness, numbness, tingling, and seizure, Psych: Negative for depression, anxiety, suicide ideation, homicidal ideation, and hallucinations, Allergy/Immunology: Negative for hives, rash, and allergies, Endocrine: Negative for neck swelling, polydipsia, polyuria, polyphagia, and marked weight changes, Hematologic/Lymphatic: Negative for swollen nodes, abnormal bleeding, and unusual bruising. 16:57 MS/extremity: Positive for decreased range of motion. Exam: 16:58 Constitutional: This is a well developed, well nourished patient who is awake, alert, sarah and in no acute distress. Head/Face: Normocephalic, atraumatic. Eyes: Pupils equal round and reactive to light, extra-ocular motions intact. Lids and lashes normal. Conjunctiva and sclera are non-icteric and not injected. Cornea within normal limits. Periorbital areas with no swelling, redness, or edema. ENT: Nares patent. No nasal discharge, no septal abnormalities noted. Tympanic membranes are normal and external auditory canals are clear. Oropharynx with no redness, swelling, or masses, exudates, or evidence of obstruction, uvula midline. Mucous membranes moist. Neck: Trachea midline, no thyromegaly or masses palpated, and no cervical lymphadenopathy. Supple, full range of motion without nuchal rigidity, or vertebral point tenderness. No Meningismus. Chest/axilla: Normal chest wall appearance and motion. Nontender with no deformity. No lesions are appreciated. Cardiovascular: Regular rate and rhythm with a normal S1 and S2. No gallops, murmurs, or rubs. Normal PMI, no JVD. No pulse deficits. Respiratory: Lungs have equal breath sounds bilaterally, clear to auscultation and percussion. No rales, rhonchi or wheezes noted. No increased work of breathing, no retractions or nasal flaring. Abdomen/GI: Soft, non-tender, with normal bowel sounds. No distension or tympany. No guarding or rebound. No evidence of tenderness throughout. Back: No spinal tenderness. No costovertebral tenderness. Full range of motion. Skin: Warm, dry with normal turgor. Normal color with no rashes, no lesions, and no evidence of cellulitis. MS/ Extremity: Pulses equal, no cyanosis. Neurovascular intact. Full, normal range of motion. Neuro: Awake and alert, GCS 15, oriented to person, place, time, and situation. Cranial nerves II-XII grossly intact. Motor strength 5/5 in all extremities. Sensory grossly intact. Cerebellar exam normal. Normal gait. Psych: Awake, alert, with orientation to person, place and time. Behavior, mood, and affect are within normal limits. 18:00 ECG was reviewed by the Attending Physician. [facility] 18:00 ECG was reviewed by the Attending Physician. [facility] Vital Signs: 16:20 BP 132 / 78; Pulse 98; Resp 18; Temp 98.3; Pulse Ox 100% ; Weight 59.87 kg; Height 5 ab2 ft. 0 in. (152.40 cm); Pain 5/10; 18:46 BP 128 / 81; Pulse 95; Resp 18 S; Pulse Ox 100% on R/A; jd3 16:20 Body Mass Index 25.78 (59.87 kg, 152.40 cm) ab2 MDM: 16:31 Patient medically screened. sarah 17:00 Differential diagnosis: anaphylaxis, angioedema. Data reviewed: vital signs, nurses [facility] notes, lab test result(s), EKG, radiologic studies, plain films. 12/30 16:47 Order name: Basic Metabolic Panel; Complete Time: 17:56 [facility] 12/30 16:47 Order name: CBC with Diff; Complete Time: 17:39 [facility] 12/30 16:47 Order name: LFT's; Complete Time: 17:56 [facility] 12/30 16:47 Order name: Magnesium; Complete Time: 17:56 [facility] 12/30 16:47 Order name: NT PRO-BNP; Complete Time: 17:56 [facility] 12/30 16:47 Order name: PT-INR; Complete Time: 17:39 sarah 12/30 16:47 Order name: Troponin HS; Complete Time: 17:56 [facility] 12/30 16:47 Order name: XRAY Chest (1 view); Complete Time: 17:39 [facility] 12/30 16:47 Order name: Lipase; Complete Time: 17:56 [facility] 12/30 17:01 Order name: TSH 12/30 16:47 Order name: EKG; Complete Time: 16:47 [facility] 12/30 16:47 Order name: Cardiac monitoring; Complete Time: 17:04 [facility] 12/30 16:47 Order name: EKG - Nurse/Tech; Complete Time: 17:04 12/30 16:47 Order name: IV Saline Lock; Complete Time: 17:04 [facility] 12/30 16:47 Order name: Labs collected and sent; Complete Time: 17:04 [facility] 12/30 16:47 Order name: O2 Per Protocol; Complete Time: 16:49 [facility] 12/30 16:47 Order name: O2 Sat Monitoring; Complete Time: 16:49 [facility] 12/30 17:41 Order name: EKG; Complete Time: 17:41 12/30 17:41 Order name: EKG - Nurse/Tech; Complete Time: 18:01 [facility] EC:00 Rate is 91 beats/min. Rhythm is regular. QRS [place] is Normal. MI interval is normal. QRS sarah interval is normal. QT interval is normal. No Q waves. T waves are Normal. No ST changes noted. Clinical impression: NSR w/ Non-specific ST/T Changes and No evidence of ischemia. Interpreted by me. Reviewed by me. 18:00 Rate is 91 beats/min. Rhythm is regular. QRS [place] is Normal. MI interval is normal. QRS sarah interval is normal. QT interval is normal. No Q waves. T waves are Normal. No ST changes noted. Clinical impression: NSR w/ Non-specific ST/T Changes and No evidence of ischemia. Interpreted by me. Reviewed by me. Administered Medications: 17:21 Drug: NS 0.9% 1000 ml Route: IV; Rate: 75 ml/hr; Site: right forearm; jd3 18:47 Follow up: Response: No adverse reaction; IV Status: Order to discontinue infusion jd3 17:21 Drug: Pepcid (famotidine) 20 mg Route: IVP; Site: right forearm; jd3 18:01 Follow up: Response: No adverse reaction jd3 17:21 Drug: Benadryl (diphenhydrAMINE) 25 mg Route: IVP; Site: right forearm; jd3 18:01 Follow up: Response: No adverse reaction jd3 18:28 Drug: SOLU-Medrol (methylPrednisoLONE) 125 mg Route: IVP; Site: right forearm; jd3 18:47 Follow up: Response: No adverse reaction jd3 Disposition Summary: 12/30/21 17:59 Discharge Ordered Location: Home sarah Problem: new sarah Symptoms: have improved sarah Condition: Stable sarah Diagnosis - Chronic pain, not elsewhere classified sarah - Unspecified kidney failure - chronic sarah - Edema, unspecified sarah - Type 2 diabetes mellitus with hyperglycemia sarah Followup: sarah - With: - When: 1 - 2 days - Reason: Recheck today's complaints, Continuance of care, Re-evaluation by your physician Discharge Instructions: - Discharge Summary Sheet sarah - Type 2 Diabetes Mellitus, Diagnosis, Adult sarah - Edema sarah - Edema, [id number] sarah - Chronic Kidney Disease, Adult, Zlxd-[id number] sarah - Hyperglycemia, [id number] sarah - Peripheral Edema sarah Forms: - Medication Reconciliation Form sarah - Thank You Letter sarah - Antibiotic Education sarah - Prescription Opioid Use sarah Prescriptions: - Benadryl 25 mg Oral Capsule - take 1 capsule by ORAL route every 6 hours As needed; 30 tablet; Refills: 0, [facility] Product Selection Permitted - Pepcid 20 mg Oral Tablet - take 1 tablet by ORAL route every 12 hours for 15 days; 30 tablet; Refills: 0, [facility] Product Selection Permitted - Medrol ([place]) 4 mg Oral Tablets, Dose Pack - take 1 tablet by ORAL route as directed - follow package instructions; 1 [facility] packet; Refills: 0, Product Selection Permitted Signatures: Dispatcher [employer] Rob Mendez MD MD cha Davies, Jonathon, RN RN jd3 John Lerner
--- NOTE | 2021-12-30 18:00 | ER ---
Nurse's Notes [facility] Name: Alberto Botello Age: 71 yrs Sex: Female : 1950 Arrival Date: 12/30/2021 Time: 15:59 Bed 20 Private MD: Alis Jamison H Diagnosis: Chronic pain, not elsewhere classified;Unspecified kidney failure-chronic;Edema, unspecified;Type 2 diabetes mellitus with hyperglycemia Presentation: 12/30 16:20 Chief complaint: Patient's son or daughter states: "She feels her hands and her face ab2 and stomach are swelling. We were going to go to her Doctor but they weren't open." Pt states swelling has been going on for 2 days. Pt c/o abdominal pain. Coronavirus screen: Vaccine status: Patient reports receiving the 2nd dose of the covid vaccine. Client denies travel out of the [place] in the last 14 days. At this time, the client does not indicate any symptoms associated with coronavirus-19. Ebola Screen: Patient negative for fever greater than or equal to 101.5 degrees Fahrenheit, and additional compatible Ebola Virus Disease symptoms Patient denies exposure to infectious person. Patient denies travel to an Ebola-affected area in the 21 days before illness onset. No symptoms or risks identified at this time. Initial Sepsis Screen: Does the patient meet any 2 criteria? No. Patient's initial sepsis screen is negative. Does the patient have a suspected source of infection? No. Patient's initial sepsis screen is negative. Risk Assessment: Do you want to hurt yourself or someone else? Patient reports no desire to harm self or others. Onset of symptoms is unknown. 16:20 Method Of Arrival: Ambulatory ab2 16:20 Acuity: ART 3 ab2 Triage Assessment: 16:23 General: Appears in no apparent distress. uncomfortable, Behavior is calm, cooperative, ab2 appropriate for age. Pain: Complains of pain in abdomen. Neuro: Level of Consciousness is awake, alert, obeys commands, Oriented to person, place, time, situation, Appropriate for age [facility] Pharm[facility] are equal bilaterally Moves all extremities. Gait is steady. Cardiovascular: Denies chest pain, shortness of breath, Patient's skin is warm and dry. Respiratory: Airway is patent Respiratory effort is even, unlabored, Respiratory pattern is regular, symmetrical, Denies shortness of breath. GI: Reports lower abdominal pain, upper abdominal pain, bloating. : No deficits noted. No signs and/or symptoms were reported regarding the genitourinary system. Derm:. Musculoskeletal: Reports swelling. Historical: - Allergies: 16:23 No Known Allergies; ab2 - PMHx: 16:23 Anxiety; Chronic pain; Diabetes - NIDDM; Hepatitis; Hypertension; Osteoporosis; ab2 Pancreatitis; - PSHx: 16:23 Cholecystectomy; ab2 - Immunization history:: Adult Immunizations up to date. - Social history:: Smoking status: Patient denies any tobacco usage or history of. Screenin:46 Abuse screen: Denies threats or abuse. Nutritional screening: No deficits noted. jd3 Tuberculosis screening: No symptoms or risk factors identified. Fall Risk Ambulatory Aid- None/Bed Rest/Nurse Assist (0 pts). Gait- Normal/Bed Rest/Wheelchair (0 pts) Mental Status- Oriented to own ability (0 pts). Total Huffman Fall Scale indicates No Risk (0-24 pts). Assessment: 16:45 General: Appears in no apparent distress. uncomfortable, Behavior is calm, cooperative, jd3 appropriate for age. Pain: Complains of pain in face, abdomen, right hand and left hand. Neuro: Level of Consciousness is awake, alert, obeys commands, Oriented to person, place, time, situation. Cardiovascular: Capillary refill < 3 seconds Patient's skin is warm and dry. Respiratory: Airway is patent Respiratory effort is even, unlabored, Respiratory pattern is regular, symmetrical, Denies cough, shortness of breath. GI: Abdomen is round Abd is soft X 4 quads Abdomen is tender to palpation X 4 quads. Reports lower abdominal pain, upper abdominal pain. : No signs and/or symptoms were reported regarding the genitourinary system. EENT: No signs and/or symptoms were reported regarding the EENT system. Derm: Skin is intact, Skin is dry, Skin is normal, Skin temperature is warm. Musculoskeletal: Circulation, motion, and sensation intact. Range of motion: intact in all extremities, Swelling present in face, right hand and left hand. 17:22 Reassessment: Patient appears in no apparent distress at this time. No changes from jd3 previously documented assessment. Patient and/or family updated on plan of care and expected duration. Pain level reassessed. Patient is alert, oriented x 3, equal unlabored respirations, skin warm/dry/pink. 18:46 Reassessment: Patient appears in no apparent distress at this time. Patient and/or jd3 family updated on plan of care and expected duration. Pain level reassessed. Patient is alert, oriented x 3, equal unlabored respirations, skin warm/dry/pink. Patient states feeling better. Vital Signs: 16:20 BP 132 / 78; Pulse 98; Resp 18; Temp 98.3; Pulse Ox 100% ; Weight 59.87 kg; Height 5 ab2 ft. 0 in. (152.40 cm); Pain 5/10; 18:46 BP 128 / 81; Pulse 95; Resp 18 S; Pulse Ox 100% on R/A; jd3 16:20 Body Mass Index 25.78 (59.87 kg, 152.40 cm) ab2 ED Course: 15:59 Patient arrived in ED. am2 15:59 Alis Jamison DO is Private Physician. am2 16:16 Rob Galo MD is Attending Physician. sarah 16:22 Triage completed. ab2 16:24 Arm band placed on right wrist. ab2 16:45 Gregorio Aguirre, YOSVANY is Primary Nurse. jd3 16:46 Patient has correct armband on for positive identification. Bed in low position. Call jd3 light in reach. Side rails up X 1. Adult w/ patient. Pulse ox on. NIBP on. 17:05 Inserted saline lock: 22 gauge in right forearm, using aseptic technique. Blood jd3 collected. 17:25 XRAY Chest (1 view) In Process Unspecified. EDMS 17:59 Alis Jamison DO is Referral Physician. sarah 18:46 No provider procedures requiring assistance completed. IV discontinued, intact, jd3 bleeding controlled, No redness/swelling at site. Pressure dressing applied. Administered Medications: 17:21 Drug: NS 0.9% 1000 ml Route: IV; Rate: 75 ml/hr; Site: right forearm; jd3 18:47 Follow up: Response: No adverse reaction; IV Status: Order to discontinue infusion jd3 17:21 Drug: Pepcid (famotidine) 20 mg Route: IVP; Site: right forearm; jd3 18:01 Follow up: Response: No adverse reaction jd3 17:21 Drug: Benadryl (diphenhydrAMINE) 25 mg Route: IVP; Site: right forearm; jd3 18:01 Follow up: Response: No adverse reaction jd3 18:28 Drug: SOLU-Medrol (methylPrednisoLONE) 125 mg Route: IVP; Site: right forearm; jd3 18:47 Follow up: Response: No adverse reaction jd3 Outcome: 17:59 Discharge ordered by MD. smith 18:46 Discharged to home ambulatory, with family. jd3 18:46 Condition: stable 18:46 Discharge instructions given to patient, Instructed on discharge instructions, follow up and referral plans. medication usage, Demonstrated understanding of instructions, follow-up care, medications, Prescriptions given X 3. 18:47 Patient left the ED. jd3 Signatures: Dispatcher [employer] Rob Mendez MD MD cha Moreno, Gregorio Jaramillo RN RN jJohn Harman
[2021-12-30] MEDS ORDERED: METHYLPREDNISOLONE 125 MG INJ ONE (18:29)
[2021-12-31 00:44] VITALS: TEMP 98.3; O2SAT 100
[2021-12-31 00:45] VITALS: BP 128/81
== END 2021-12-30 18:47 | disposition home or self-care (01) ==
LOC: ER 15:57
DX: R60.9 Edema, unspecified (principal); G89.29 Other chronic pain; N19 Unspecified kidney failure; E11.65 Type 2 diabetes mellitus with hyperglycemia; M81.0 Age-related osteoporosis without current pathological fracture; K75.9 Inflammatory liver disease, unspecified; F41.9 Anxiety disorder, unspecified
CPT/HCPCS: 96361; 93005 ×2; 85025; 80048; 36415; 83735; 85610; 80076; 84443; 84484; 83690; 83880; 71045; 96375; 96374; 99284; J1200; J7030; J2930; J3490

== ENCOUNTER 2022-01-03 12:17 | Emergency (ER) | payer OTHER ==
--- OUTSIDE RECORDS SUMMARY | 2022-01-03 12:23 | XMS REPORT | Continuity of Care Document ---
:1950 Author Organization [facility] [place] [facility] t Address [address] [place] [address] Care Team Providers Name Role Phone ALEJANDRA, [...] Expiration Date Brandy haywood MEDICARE A B [id number] 2021 00:00:00 [place]ICAID [place] [id number] MEDICARE PART A [id number] \\T\\ B - MEDICARE [facility]-MEDICAID - [id number] MEDICAID MEDICARE PART A [id number] 2003 \\T\\ B 00:00:00 [place] [id number] 2013 00:00:00 Problems Condition Condition Condition Status [...] ity of of first of first 00:00: [place] [facility] vertebra vertebra Branch with with routine routine healing healing Hypertensi Hypertensi Disease Active C HI St on on [facility] Diabetes Diabetes Disease Active [facility] t mellitus mellitus [facility] New onset New onset Problem Active Uni [...] NO KNOWN Allergy Active [facility] NO KNOWN Drug Active Univers ALLERGIE Class ity of S [facility] Family History Family Member Diagnosis Comments Start Date Stop Date Source Father Family history of Univers ity of [place] lung cancer Physicians Social History Social Habit Start Date Stop Date Quantity Comments Source Exposure to Not sure [facility] SARS-CoV-2 (event) Medica l Branch Tobacco use and 2021-05-07 2021-05-[address] [facility] - exposure 00:00:00 00:00:00 Medical Center Alcohol intake 2016-03-18 2016-03-18 0 /d [facility] 00:00:00 00:00:00 Medical Branch Sex Assigned At [birth year] [facility] 00:00:00 00:00:00 Medical Branch Smoking Status Start Date Stop Date Source Never smoker [facility] Medications Ordered Filled Start Stop Current Ordering Indication Dosage Frequency Signature Comments Components Source Medication Medication Date Date Medication? Clinician (SIG) Name Name iopamidol 2020-09- No [id number] 100mL 100 mL, Univers (ISOVUE 09-23 Intravenou ity o f 370-500 mL) 17:55: 17:55 s, ONCE, 1 [place] injection 00 :00 dose, On Medica l 100 mL Tue Bradley 07/24/21 at 1215, Routine ondansetron 2020-09- No 4mg 4 mg, Slow Univers (ZOFRAN 09-23 IV Push, ity of (PF)) 17:45: 16:38 ONCE, 1 [place] injection 4 00 :00 dose, On Medi josephine mg Tue [place] 07/24/21 at 1145, Routine morpHINE 2020-09 Yes 4mg 4 mg, Slow Uni vers injection 4 09-23 IV Push, ity of mg 16:30: Q4HPRN, [place] 24 Starting Medical on Tue [place] 07/24/21 at 1030, Until Discontinu ed, Routine, [...] MCG 10:59: mouth Medical capsule 53 daily. [facility] alendronate Yes 70mg Take [address] (FOSAMAX) 8-26 by mouth [facility] - 70 MG 10:59: every 7 Medical tablet 53 days Take Center in the morning with a full glass of water, on an empty stomach, and do not take anything else by mouth or lie down for the next 30 min. . HYDROcodone Yes 1{tbl} Q.01383627 Take [address] -acetaminop 8-26 [id number] tablet by [facility]ukes - hen (NORCO 10:59: [...] next 30 min. . HYDROcodone Yes 1{tbl} Q.52428455 Take [address] -acetaminop 8-26 [id number] tablet by Lukes - hen (NORCO 10:59: 3D mouth 3 Medi josephine 5-325) 53 (three) Center 5-325 mg times per tablet daily. ursodioL Yes 500mg QD Take [address] (ACTIGALL) 8-26 mg by Lukes - 500 MG 10:59: mouth Medical tablet 53 daily. [facility] ALPRAZolam Yes 2mg Take 2 mg CH [...] MCG 10:59: mouth Medical capsule 53 daily. [facility] alendronate Yes 70mg Take [address] (FOSAMAX) 8-26 by mouth [facility] - 70 MG 10:59: every 7 Medical tablet 53 days Take Center in the morning with a full glass of water, on an empty stomach, and do not take anything else by mouth or lie down for the next 30 min. . HYDROcodone Yes 1{tbl} Q.01635042 Take [address] -acetaminop 8-26 [id number] tablet by [facility]ukes - hen (NORCO 10:59: 3D mouth 3 Medi josephine 5-325) 53 (three) Center 5-325 mg times per tablet daily. ursodioL Yes 500mg QD Take [address] (ACTIGALL) 8-26 mg by Lukes - 500 MG 10:59: mouth Medical tablet 53 daily. [facility] ALPRAZolam Yes 2mg Take 2 mg CH [...] next 30 min. . HYDROcodone Yes 1{tbl} Q.[id number] Take [address] -acetaminop 8-26 [id number] tablet by [facility]ukes - hen (NORCO 09:40: 3D mouth 3 Medi josephine 5-325) 47 (three) Center 5-325 mg times per tablet daily. ursodioL Yes 500mg QD Take [address] (ACTIGALL) 8-26 mg by Lukes - 500 MG 09:40: mouth Medical tablet 47 daily. Center meclizine Yes [facility] (ANTIVERT) 6-21 [facility] - 25 mg 00:00: Medical tablet 00 [facility] meclizine Yes [facility] (ANTIVERT) 6-21 [facility] - 25 mg 00:00: Medical tablet 00 Center meclizine Yes [facility] (ANTIVERT) 6-21 [facility] - 25 mg 00:00: Medical tablet 00 [facility] meclizine Yes [facility] (ANTIVERT) 6-21 [facility] - 25 mg 00:00: Medical tablet 00 [facility] Nortriptyli Nortriptyli Yes HOLLIE TAKE 1 Univers [...] i ty of Tablet Tablet 00:00: TWICE [place] 00 DAILY. Physici ans MetFORMIN MetFORMIN Yes [...] ity of mg 24 hr 08:12: daily. [place] capsule 18 Medical Branch ALPRAZolam Yes 2mg [...] of Powd 00:00: [place] 00 [facility] gabapentin 2016-0 Yes TAKE 1 Unive rs [...] Completed Unive rsity of PFIZER VACCINE 00:00:00 [facility] SARS-COV-2 COVID-19 2020-10-21 Completed Unive rsity of PFIZER VACCINE 00:00:00 [facility] Vital Signs Vital Name Observation Time Observation Value Comments Source WEIGHT 2021-03-10 62.596 kg 11:08:00 Systolic blood 2021-07-24 144 mm[Hg] University of pressure 19:28:00 [facility] Diastolic blood 2021-07-24 90 mm[Hg] [facility] pressure 19:28:00 [facility] Heart rate 2021-07-24 87 /min [facility] 19:28:00 [facility] Respiratory rate 2021-07-24 18 /min [facility] 19:28:00 [facility] Oxygen saturation 2021-07-24 97 /min [facility] in Arterial blood 19:28:00 [facility] by Pulse oximetry [place] Body temperature 2021-07-24 37 Carolann [facility] 16:20:00 [facility] Body weight 2021-07-24 61.236 kg University 16:20:00 [facility] BMI 2021-07-24 25.51 kg/m2 [facility] 16:20:00 [facility] HEIGHT 2021-05-04 152.4 cm 17:29:00 WEIGHT 2021-05-04 61.689 kg 17:29:00 HEIGHT 2021-05-04 152.4 cm 17:29:00 WEIGHT 2021-05-04 61.689 kg 17:29:00 WEIGHT 2021-03-10 62.596 kg 11:08:00 Systolic blood 2021-05-07 156 mm[Hg] [facility] - pressure 08:00:00 Medical [place] Diastolic blood 2021-05-07 74 mm[Hg] [facility] - pressure 08:00:00 Medical Center Heart rate 2021-05-07 76 /min [facility] - 08:[facility] Medical Center Body temperature 2021-05-07 36.72 Carolann [facility] - 08:00:00 Medical Center Respiratory rate 2021-05-07 17 /min [facility] - 08:00:00 Medical Center Oxygen saturation 2021-05-07 97 /min [facility] St [facility] - in Arterial blood 08:00:00 Medical nter by Pulse oximetry Body height 2021-05-04 152.4 cm [facility] 17:29[facility]00 [facility] Body weight 2021-05-04 61.689 kg [facility] - 17:29:00 [facility] BMI 2021-05-04 26.56 kg/m2 [facility] - 17:29:00 [facility] BP Systolic 2018-02-01 131 mm[Hg] Location: [facility] 08:36:00 Position: [place] Physician s Sitting BP Diastolic 2018-02-01 78 mm[Hg] Location: [facility] 08:36:00 Position: [place] Physician s Sitting Height 2018-02-01 60 [in_us] [facility] 08:36:00 [place] Physician s Weight 2018-02-01 117 [lb_av] [facility] 08:36:00 [place] Physician s Body Mass Index 2018-02-01 22.85 kg/m2 [facility] Calculated 08:36:00 [place] Physician s Heart Rate 2018-02-01 73 /min Location: [facility] 08:36:00 Brachial [place] Physician s Artery; Procedures Procedure Date / Time Performing Clinician Source Performed CT ABDOMEN PELVIS W 2021-07-24 18:00:55 Glenn Fu [facility] CONTRAST Medical Branch URINALYSIS 2021-07-24 17:39:00 Singer Glenn [facility] Branch LIPASE 2021-07-24 16:33:00 Singer [facility] COMP. METABOLIC PANEL 2021-07-24 16:33:00 [facility] ([id number]) Medical Branch CBC WITH DIFF 2021-07-24 16:33:00 Singer [facility] NOTICE OF PRIVACY 2021-07-24 16:11:11 Doctor Unassigned, [facility] PRACTICES [facility] REPORT OF PROCEDURE - 2021-05-06 16:07:30 Juan Alberto Shelton [facility] ENDOSCOPY [facility] ERCP,DIRECT VISUALIZATION 2021-05-06 15:00:00 Juan Alberto Shelton [facility] [place] PROCEDURE W/ C-ARM 2021-05-06 15:00:00 Juan Alberto Shelton [facility] ERCP,BALLOON SWEEPING 2021-05-06 15:00:00 Juan Alberto Shelton [facility] CBC W/PLT COUNT & AUTO 2021-05-06 05:51:00 [facility] DIFFERENTIAL [facility] BASIC METABOLIC PANEL (7) 2021-05-06 05:51:00 [facility] HEPATIC FUNCTION PANEL 2021-05-06 05:51:00 Stephfl [facility] ABORH, MANUAL 2021-05-05 05:07:00 Zunilda Rubin [facility] TYPE AND SCREEN, 2021-05-05 04:14:[address] [facility] PROTHROMBIN TIME/INR 2021-05-05 04:14:00 [facility] SARS-COV2/RT-PCR ([facility] 2021-05-05 00:18:00 Britney Lloyd [facility] - REF LABS) [facility] BLOOD GAS, VENOUS 2021-05-05 00:14:00 N[facility] KETONE, BLOOD 2021-05-05 00:14:00 [facility] HIGH SENSITIVITY TROPONIN 2021-05-05 00:14:00 Roxie [facility] ED ECG INTERPRETATION 2021-05-04 23:15:17 Nilton [facility] BASIC METABOLIC PANEL (7) 2021-05-04 21:30:00 Cherie Faustin [facility] HEPATIC FUNCTION PANEL 2021-05-04 21:30:00 Cherie Faustin [facility] AMYLASE 2021-05-04 21:30:00 Roxie [facility] LIPASE 2021-05-04 21:30:00 Roxie [facility] CBC W/PLT COUNT & AUTO 2021-05-04 19:37:00 Roxie [facility] ECG 12-LEAD 2021-05-04 19:22:33 Unknown, Hl7 [facility] POCT-GLUCOSE METER 2021-03-11 08:21:00 Jessica Boone [facility] COMPREHENSIVE METABOLIC 2021-03-11 06:09:00 Clive Alferdo [facility] REPORT OF PROCEDURE - 2021-03-10 23:43:51 Allen Chavez [facility] - ENDOSCOPY [facility] POCT-GLUCOSE METER 2021-03-10 16:43:00 Jessica Boone [facility] POCT-GLUCOSE METER 2021-03-10 12:45:00 Jessica Boone [facility] [place] ERCP 2021-03-10 12:02:00 Desiree Duggan [facility] ERCP,PAPILLOTOMY 2021-03-10 11:31:00 [facility] PROCEDURE W/ C-ARM 2021-03-10 11:31:00 Kathy [facility] ERCP,BALLOON SWEEPING 2021-03-10 11:31:00 Kathy [facility] POCT-GLUCOSE METER 2021-03-10 09:07:00 Berna Boonecharly [facility] CBC (HEMOGRAM ONLY) 2021-03-10 04:50:00 [facility] COMPREHENSIVE METABOLIC 2021-03-10 04:50:00 [facility] HEMOGLOBIN A1C 2021-03-10 04:50:00 [facility] POCT-GLUCOSE METER 2021-03-09 23:54:00 [facility] SARS-COV2/RT-[facility] ([facility] 2021-03-09 20:13:00 Desiree Duggan [facility] - REF LABS) [facility] POCT-GLUCOSE METER 2021-03-09 17:22:00 [facility] MR ABDOMEN WITHOUT IV 2021-03-09 15:38:00 [facility] CONTRAST MRCP [facility] POCT-GLUCOSE METER 2021-03-09 12:22:00 [facility] URINALYSIS W/ REFLEX 2021-03-09 10:56:00 [facility] URINE CULTURE [facility] HEPATIC FUNCTION PANEL 2021-03-09 05:25:00 [facility] PROTHROMBIN TIME/INR 2021-03-09 05:25:00 [facility] MAGNESIUM 2021-03-09 05:25:00 [facility] BASIC METABOLIC PANEL (7) 2021-03-09 05:25:00 [facility] CBC W/PLT COUNT & AUTO 2021-03-09 05:25:00 [facility] DIFFERENTIAL [facility] HEMOGLOBIN A1C 2021-03-09 05:25:00 [facility] MRI Brain wo contrast 2018-02-08 00:00:00 [facility] [id number] Physicians MRI Brain w/wo contrast 2018-02-01 00:00:00 [facility] [address] Physicians [facility] Plan of Care Planned Activity Planned Date Details Comments Source Future Scheduled 2021-09-[address] [facility] - Test 00:00:00 measurement Medical Center (procedure) [code = 16536204] Future Scheduled 2021-09-[address] [facility] - Test 00:00:00 measurement Medical Center (procedure) [code = 23594410] Future Scheduled 2021-09-[address] [facility] [facility] - Test 00:00:00 measurement Medical Center (procedure) [code = 26848881] Future Scheduled 2021-09-[address] [facility] - Test 00:00:00 measurement Medical Center (procedure) [code = 98289318] Future Scheduled 2021-05-13 INFLUENZA VACCINE (#1) C [...] [facility] - Test 00:00:00 ([address] [place] [address] [id number] PCV13) [code = PNEUMOCOCCAL 65+ YRS (1 of 1 - [id number]_Pxiugsj PCV13)] Future Scheduled 2013 PNEUMOCOCCAL 65+ YRS [facility] - Test 00:00:00 ([address] [place] [address] Center [id number] PCV13) [code = PNEUMOCOCCAL 65+ YRS (1 of 1 - [id number]_Fckigrb PCV13)] Future Scheduled 2013 PNEUMOCOCCAL 65+ Y[facility] - Test 00:00:00 ([address] [place] [address] [id number] PCV13) [code = PNEUMOCOCCAL 65+ YRS (1 of 1 - AVER96_Gqmacec PCV13)] Future Scheduled 2013 PNEUMOCOCCAL 65+ YRS [facility] - Test 00:00:00 (1 of 1 - Medical Center [id number]_Brihjmo PCV13) [code = PNEUMOCOCCAL 65+ YRS (1 of 1 - IPJM23_Elyxukb PCV13)] Future Scheduled 2004-10-14 MEDICARE ANNUAL CHI [...] 00:00:00 examination Medical Center (regime/therapy) [code = 983575350] Future Scheduled 1958 Urine screening [facility] Test 00:00:00 protein (procedure) Medical Center [code = 215671887] Future Scheduled 1960 DIABETIC EYE EXAM [facility] Test 00:00:00 [code = DIABETIC EYE Medical Center EXAM] Future Scheduled [address] [facility] - Test 00:00:00 examination Medical Center (regime/therapy) [code = 237097723] Future Scheduled 1958 Urine screening [facility] Test 00:00:00 protein (procedure) Medical Center [code = 016138520] Future Scheduled 1960 DIABETIC EYE EXAM [facility] Test 00:00:00 [code = DIABETIC EYE Medical Center EXAM] Future Scheduled [address] [facility] - Test 00:00:00 examination Medical Center (regime/therapy) [code = 176980205] Future Scheduled 1958 Urine screening [facility] Test 00:00:00 protein (procedure) Medical Center [code = 952929456] Future Scheduled 1960 DIABETIC EYE EXAM [facility] Test 00:00:00 [code = DIABETIC EYE Medical Center EXAM] Future Scheduled [address] [facility] - Test 00:00:00 examination Medical Center (regime/therapy) [code = 870711151] Future Scheduled 1958 Urine screening [facility] Test 00:00:00 protein (procedure) Medical Center [code = 273969309] Future Scheduled [address] [facility] - Test 00:00:00 malignant neoplasm of Medica l Center breast (procedure) [code = 464167378] Future Scheduled [address] [facility] - Test 00:00:00 malignant neoplasm of Medica l Center colon (procedure) [code = 804141239] Future Scheduled [address] [facility] [facility] - Test 00:00:00 malignant neoplasm of Medica l Center breast (procedure) [code = 768756262] Future Scheduled [address] [facility] - Test 00:00:00 malignant neoplasm of Medica l Center colon (procedure) [code = 572884945] Future Scheduled [address] [facility] - Test 00:00:00 malignant neoplasm of Medica l Center breast (procedure) [code = 867672661] Future Scheduled [address] [facility] - Test 00:00:00 malignant neoplasm of Medica l Center colon (procedure) [code = 675083811] Future Scheduled [address] [facility] - Test 00:00:00 malignant neoplasm of Medica l Center breast (procedure) [code = 515669727] Future Scheduled [address] [facility] - Test 00:00:00 malignant neoplasm of Medica l Center colon (procedure) [code = 033991006] Encounters Start End Encounter Admission Attending Care Care Encounter Source Date/Time Date/Time Type Type Clinicians Facility Department ID 2021-06-21 Inpatient ER TERESA BURNETT Gastro [id number] [facility] 02:39:12 [place] 2021-08-10 2021-08-10 Outpatient MCKAY SUYAPA [facility] [id number] [facility] 10:38:01 17:18:04 LEV Bermudezg e of Medicin e 2021-07-24 2021-07-24 Emergency X [facility] ERT [id number] Univers 10:12:00 14:31:[address] [facility] 2021-07-24 2021-07-24 Emergency [facility] [id number] Univers 10:12:00 14:31:00 Glenn DONATO [id number] i ty [facility] [place] [id number] [facility] [id number] [place] [address] Branch 2021-05-04 2021-05-07 Hospital ER Cherie Faustin [facility] [id number] 17:37:00 10:59:00 Encounter [facility] 2021-05-06 2021-05-06 Anesthesia Denise Quispe [facility] [id number] 15:10:00 16:27:[address] [facility] 2021-05-06 2021-05-06 Surgery Nikita [facility] [id number] 13:00:00 14:30:00 [facility] 2021-05-05 2021-05-05 Travel [facility] [id number] [facility]00 00:[facility]:00 [facility] 2021-05-04 2021-05-04 Outpatient [facility] [id number] [facility] 00:00:00 23:59:00 Colleg e of Medicin e 2021-05-04 2021-05-[address] [facility] Emergency [id number] [facility] 17:24:00 17:24:00 2021-05-04 2021-05-04 Orders [facility] [id number] 00:00:00 00:00:[address] [facility] 2021-05-04 2021-05-04 Travel [facility] [id number] [facility]00 00:[facility]:00 [facility] 2021-05-01 2021-05-01 Emergency E [facility]INA[id number] 16:21:00 22:56:00 [facility] 2021-03-13 2021-03-13 Telephone Ezequiel, [facility] [id number] 00:00:00 00:00:00 [facility] 2021-03-08 2021-03-11 [facility] Curtis BurnettKenrick [facility] [id number] 23:13:00 11:35:00 Encounter Bret Schuster [facility] 2021-03-10 2021-03-10 [facility] [id number] 11:00:00 12:30:00 [facility] 2021-03-10 2021-03-10 Anesthesia Bahena, [facility] [id number] 11:36:00 12:27:00 Event Graciela jessica [facility] 2018-02-01 2018-02-01 AppointBRENDAN Hussein Neurology [id number] Univers 08:00:00 08:00:00 HOLLIE Adair ity of CHRISTINA, M.D. [place] M.D. Physici ans Results Test Description Test Time Test Comments Results Result Comments Source COMP. METABOLIC PANEL (93710) 2021-07-24 17:14:29 Test Item Value Reference Range Interpretation Comme nts NA (test code = 8347394043) 139 mmol/L 135-145 K (test code = 2571603107) 4.3 mmol/L 3.5-5.0 CL (test code = 8450224200) 104 mmol/L 98-108 CO2 TOTAL (test code = 2966162337) 24 mmol/L 23-31 AGAP (test code = 2698346431) 2-16 BUN (test code = 3816473230) 18 mg/dL 7-23 GLUCOSE (test code = 8421233495) 104 mg/dL 70-110 CREATININE (test code = 1.39 mg/dL 0.50-1.04 H 7321459131) TOTAL BILI (test code = 0.4 mg/dL 0.1-1.5 5405870113) CALCIUM (test code = 2755365898) 9.6 mg/dL 8.6-10.6 T PROTEIN (test code = 1378992897) 8.4 g/dL 6.3-8.2 H ALBUMIN (test code = 0590812151) 4.6 g/dL 3.5-5.0 ALK PHOS (test code = 3146021677) 93 U/L 34-122 ALTv (test code = 1742-6) 44 U/L 5-35 H AST(SGOT) (test code = 4709121843) 48 U/L 13-40 H eGFR (test code = 9604043490) mL/min/1.73m2 TORRES (test code = TORRES) Association [...] tests). Lab Interpretation (test code = Abnormal 97648-8) [place] [facility] 17:13:49 Test Item Value Reference Range Interpretation Comments LIPASE (test code = 8819431438) 266 U/L 0-220 H Lab Interpretation (test code = Abnormal 36389-3) [place] [facility] WITH [id number] 17:03:27 Test Item Value Reference Range Interpretation Comments WBC (test code = See_Comment [Automated 0890-2) message] The sy stem which generated this result transmitted reference range : 4.30 - 11.10 10*3/?L. The reference range was not used to interpret this result as normal/abnormal . RBC (test code = See_Comment [Automated 899-8) message] The sy stem which generated this [...] RDW-SD (test code = 48.4 fL 39.0-49.9 70728-5) RDW-CV (test code = 13.8 % 12.0-15.5 788-0) PLT (test code = See_Comment [Automated 807-3) message] The sy stem which generated this result transmitted reference range : 166 - 358 10*3/ ?L. The reference r becca was not used to interpret this result as normal/abnormal . MPV (test code = 9.1 fL 9.5-12.9 L 01776-1) NRBC/100 WBC (test See_Comment [Automat ed code = 9354686611) message] The system which generated this result transmitted reference range : 0.0 - 10.0 /100 WBCs. The refer ence range was not u sed to interpret th is result as normal/abnormal . NRBC x10^3 (test code <0.01 See_Comment [Auto mated = 6960732850) message] The s ystem which generated this result transmitted reference range : 10*3/?L. The reference range was not used to interpret this result as normal/abnormal . GRAN MAT (NEUT) % 64.8 % (test code = 770-8) IMM GRAN % (test code 0.90 % = 6133098035) LYMPH % (test code = 24.2 % 736-9) MONO % (test code = 8.2 % 5905-5) EOS % (test code = 1.4 % 713-8) BASO % (test code = 0.5 % 706-2) GRAN MAT x10^3(ANC) 5.59 10*3/uL 1.88-7.09 (test code = 2560328563) IMM GRAN x10^3 (test 0.08 10*3/uL 0.00-0.06 H code = 1452339628) LYMPH x10^3 (test code 2.09 10*3/uL 1.32-3.29 = 731-0) MONO x10^3 (test code 0.71 10*3/uL 0.33-0.92 = 742-7) EOS x10^3 (test code = 0.12 10*3/uL 0.03-0.39 711-2) BASO x10^3 (test code 0.04 10*3/uL 0.01-0.07 = 704-7) Lab Interpretation Abnormal (test code = 83662-0) [place] [facility] metabolic [id number] 07:08:00 Test Item Value Reference Range Interpretation Comments Sodium (test code = 139 meq/L 772-711 5497-2) Potassium (test 4.1 meq/L 3.5-5.1 code = 2823-3) Chloride (test code 107 meq/L 98-107 = 2075-0) CO2 (test code = 25 meq/L 22-29 2027-9) BUN (test code = 13 mg/dL 7-21 3094-0) Creatinine (test 0.97 mg/dL 0.57-1.25 code = 2160-0) Glucose (test code 80 mg/dL 70-105 = 2345-7) Calcium (test code 8.9 mg/dL 8.4-10.2 = 03992-5) EGFR (test code = 56 mL/min/1.[address] [place] [address]-8) NOT ACCURATE CREATININE CLEARANCE IN PREDICTING GLOMERULAR FILTRATION RATE . ESTIMATED GFR I S NOT APPLICABLE FOR DIALYSIS PATIEN TORRES (test code = Plug Cutting Machine Operator ID - TORRES) TOÑITO Camacho [facility] function [id number] 07:08:00 Test Item Value Reference Range Interpretation Comments Protein, Total (test 6.9 See_Comment [Autom ated code = 2885-2) message] The system which generated this result transmit lane reference range : 6.0 - 8.3 gm/dL . The reference range was not u sed to interpret th is result as normal/abnormal . Albumin (test code = 3.6 g/dL 3.5-5 70245-0) Total Bilirubin (test 0.3 mg/dL 0.2-1.2 code = 1974-2) Bilirubin, Direct 0.2 mg/dL 0.1-0.5 (test code = 1967-7) Alkaline Phosphatase 56 U/L 40-150 (test code = 6768-6) AST (test code = 37 U/L 5-34 H 1920-8) ALT (test code = 50 U/L 6-55 1742-6) TORRES (test code = TORRES) Plug Cutting Machine Operator ID - TOÑITO Camacho Lab Interpretation Abnormal (test code = 80929-1) [facility] [id number] 07:08:00 Test Item Value Reference Range Interpretation Comments Sodium (test code = 139 meq/L 200-890 5087-2) Potassium (test 4.1 meq/L 3.5-5.1 code = 2823-3) Chloride (test code 107 meq/L 98-107 = 2075-0) CO2 (test code = 25 meq/L 2028-05) BUN (test code = 13 mg/dL 7-21 3094-0) Creatinine (test 0.97 mg/dL 0.57-1.25 code = 2160-0) Glucose (test code 80 mg/dL 70-105 = 2345-7) Calcium (test code 8.9 mg/dL 8.4-10.2 = 42392-0) EGFR (test code = 56 mL/min/1.[address] [place] [address]-2) NOT ACCURATE CREATININE CLEARANCE IN PREDICTING GLOMERULAR FILTRATION RATE . ESTIMATED GFR I S NOT APPLICABLE FOR DIALYSIS PATIEN TORRES (test code = Plug Cutting Machine Operator ID - TORRES) TOÑITO Camacho [facility] function [id number] 07:08:00 Test Item Value Reference Range Interpretation Comments Protein, Total (test 6.9 See_Comment [Autom ated code = 2885-2) message] The system which generated this result transmit lane reference range : 6.0 - 8.3 gm/dL . The reference range was not u sed to interpret th is result as normal/abnormal . Albumin (test code = 3.6 g/dL 3.5-5 00475-4) Total Bilirubin (test 0.3 mg/dL 0.2-1.2 code = 1974-2) Bilirubin, Direct 0.2 mg/dL 0.1-0.5 (test code = 1968-7) Alkaline Phosphatase 56 U/L 40-150 (test code = 6768-6) AST (test code = 37 U/L 5-34 H 1920-8) ALT (test code = 50 U/L 6-55 1742-6) TORRES (test code = TORRES) Plug Cutting Machine Operator ID - PIJOVANNI L Lab Interpretation Abnormal (test code = 71012-2) [facility] [id number] 07:08:00 Test Item Value Reference Range Interpretation Comments Sodium (test code = 139 meq/L 413-257 5359-2) Potassium (test 4.1 meq/L 3.5-5.1 code = 2823-3) Chloride (test code 107 meq/L 98-107 = 2075-0) CO2 (test code = 25 meq/L 22-29 2028-9) BUN (test code = 13 mg/dL 04-01 3094-0) Creatinine (test 0.97 mg/dL 0.57-1.25 code = 2160-0) Glucose (test code 80 mg/dL 70-105 = 2345-7) Calcium (test code 8.9 mg/dL 8.4-10.2 = 31490-2) EGFR (test code = 56 mL/min/1.[address] [place] [address]-7) NOT ACCURATE CREATININE CLEARANCE IN PREDICTING GLOMERULAR FILTRATION RATE . ESTIMATED GFR I S NOT APPLICABLE FOR DIALYSIS PATIEN TORRES (test code = Plug Cutting Machine Operator ID - TORRES) TOÑITO Camacho [facility] function [id number] 07:08:00 Test Item Value Reference Range Interpretation Comments Protein, Total (test 6.9 See_Comment [Autom ated code = 2885-2) message] The system which generated this result transmit lane reference range : 6.0 - 8.3 gm/dL . The reference range was not u sed to interpret th is result as normal/abnormal . Albumin (test code = 3.6 g/dL 3.5-5 51208-5) Total Bilirubin (test 0.3 mg/dL 0.2-1.2 code = 1975-2) Bilirubin, Direct 0.2 mg/dL 0.1-0.5 (test code = 1967-7) Alkaline Phosphatase 56 U/L 40-150 (test code = 6768-6) AST (test code = 37 U/L 5-34 H 1920-8) ALT (test code = 50 U/L 6-55 1742-6) TORRES (test code = TORRES) Plug Cutting Machine Operator ID - TOÑITO Camacho Lab Interpretation Abnormal (test code = 89705-4) [facility] [id number] 07:08:00 Test Item Value Reference Range Interpretation Comments Sodium (test code = 139 meq/L 493-800 2980-2) Potassium (test 4.1 meq/L 3.5-5.1 code = 2823-3) Chloride (test code 107 meq/L 98-107 = 2075-0) CO2 (test code = 25 meq/L 22-29 8-9) BUN (test code = 13 mg/dL 04-01 3094-0) Creatinine (test 0.97 mg/dL 0.57-1.25 code = 2160-0) Glucose (test code 80 mg/dL 70-105 = 2345-7) Calcium (test code 8.9 mg/dL 8.4-10.2 = 96631-3) EGFR (test code = 56 mL/min/1.[address] [place] [address]-0) NOT ACCURATE CREATININE CLEARANCE IN PREDICTING GLOMERULAR FILTRATION RATE . ESTIMATED GFR I S NOT APPLICABLE FOR DIALYSIS PATIEN TORRES (test code = Plug Cutting Machine Operator ID - TORRES) TOÑITO Camacho [facility] function [id number] 07:08:00 Test Item Value Reference Range Interpretation Comments Protein, Total (test 6.9 See_Comment [Autom ated code = 2885-2) message] The system which generated this result transmit lane reference range : 6.0 - 8.3 gm/dL . The reference range was not u sed to interpret th is result as normal/abnormal . Albumin (test code = 3.6 g/dL 3.5-5 44782-8) Total Bilirubin (test 0.3 mg/dL 0.2-1.2 code = 1975-2) Bilirubin, Direct 0.2 mg/dL 0.1-0.5 (test code = 1968-7) Alkaline Phosphatase 56 U/L 40-150 (test code = 6768-6) AST (test code = 37 U/L 5-34 H 1920-8) ALT (test code = 50 U/L 6-55 1742-6) TORRES (test code = TORRES) Plug Cutting Machine Operator ID - TOÑITO Camacho Lab Interpretation Abnormal (test code = 19860-2) [facility] Hospital[facility] METABOLIC [id number] 07:08:00 Test Item Value Reference Range Interpretation [...] S NOT APPLICABLE FOR DIALYSIS PATIEN TS. Plug Cutting Machine Operator ID - PIJOVANNI LHEPATIC FUNCTION [id number] 07:08:00 Test Item Value Reference Range Interpretation [...] (test code = 50 U/L 6-55 347) Plug Cutting Machine Operator ID - TOÑITO LCBC with platelet count + automated [id number] 06:01:00 Test Item Value Reference Range Interpretation Comments WBC (test code = 6690-2) 7.9 See_Comment [A utomated message] The system [employer] generated this result transmitted ref erence range: 3.5 - 10 .5 K/L. The refe rence range was not u sed to interpret this result as normal/abnor mal. RBC (test code = 789-8) 3.22 See_Comment L [Au tomated message] The system [employer] generated this result transmitted ref erence range: 3.93 - 5 .22 M/L. The refe rence range was not u sed to interpret this result as normal/abnor mal. MCHC (test code = 786-4) 31.8 See_Comment L [A utomated message] The system [employer] generated this result transmitted ref erence range: [...] See_Comment [Aut omated message] 777-3) The system [employer] generated this result transmitted ref erence range: 150 - 45 0 K/CU MM. The referen ce range was not u sed to interpret this result as normal/abnor mal. MPV (test code = 8.9 fL 9.4-12.3 L 28400-8) nRBC (test code = 413) 0 See_Comment [Aut omated message] The system [employer] generated this result transmitted ref erence range: [...] See_Comment [Aut omated message] 670) The system [employer] generated this result transmitted ref erence range: 1.56 - 6 .13 K/L. The refe rence range was not u sed to interpret this result as normal/abnor mal. # Lymphs (test code = 2.20 See_Comment [Auto mated message] 414) The system [employer] generated this result transmitted ref erence range: 1.18 - 3 .74 K/L. The refe rence range was not u sed to interpret this result as normal/abnor mal. # Monos (test code = 0.54 See_Comment H [Autom ated message] 415) The system [employer] generated this result transmitted ref erence range: 0.24 - 0 .36 K/L. The refe rence range was not u sed to interpret this result as normal/abnor mal. # Eos (test code = 416) 0.08 See_Comment [Au tomated message] The system [employer] generated this result transmitted ref erence range: 0.04 - 0 .36 K/L. The refe rence range was not u sed to interpret this result as normal/abnor mal. # Baso (test code = 417) 0.03 See_Comment [A utomated message] The system [employer] generated this result transmitted ref erence range: 0.01 - 0 .08 K/L. The refe rence range was not u sed to interpret this result as normal/abnor mal. Immature 0 % 0-1 Granulocytes-Relative (test code = 2801) Lab Interpretation (test Abnormal code = 92148-1) [facility] with platelet count + automated [id number] 06:01:00 Test Item Value Reference Range Interpretation Comments WBC (test code = 6690-2) 7.9 See_Comment [A utomated message] The system [employer] generated this result transmitted ref erence range: 3.5 - 10 .5 K/L. The refe rence range was not u sed to interpret this result as normal/abnor mal. RBC (test code = 789-8) 3.22 See_Comment L [Au tomated message] The system [employer] generated this result transmitted ref erence range: 3.93 - 5 .22 M/L. The refe rence range was not u sed to interpret this result as normal/abnor mal. MCHC (test code = 786-4) 31.8 See_Comment L [A utomated message] The system [employer] generated this result transmitted ref erence range: [...] See_Comment [Aut omated message] 777-3) The system [employer] generated this result transmitted ref erence range: 150 - 45 0 K/CU MM. The referen ce range was not u sed to interpret this result as normal/abnor mal. MPV (test code = 8.9 fL 9.4-12.3 L 11682-8) nRBC (test code = 413) 0 See_Comment [Aut omated message] The system [employer] generated this result transmitted ref erence range: [...] See_Comment [Aut omated message] 670) The system [employer] generated this result transmitted ref erence range: 1.56 - 6 .13 K/L. The refe rence range was not u sed to interpret this result as normal/abnor mal. # Lymphs (test code = 2.20 See_Comment [Auto mated message] 414) The system [employer] generated this result transmitted ref erence range: 1.18 - 3 .74 K/L. The refe rence range was not u sed to interpret this result as normal/abnor mal. # Monos (test code = 0.54 See_Comment H [Autom ated message] 415) The system [employer] generated this result transmitted ref erence range: 0.24 - 0 .36 K/L. The refe rence range was not u sed to interpret this result as normal/abnor mal. # Eos (test code = 416) 0.08 See_Comment [Au tomated message] The system [employer] generated this result transmitted ref erence range: 0.04 - 0 .36 K/L. The refe rence range was not u sed to interpret this result as normal/abnor mal. # Baso (test code = 417) 0.03 See_Comment [A utomated message] The system [employer] generated this result transmitted ref erence range: 0.01 - 0 .08 K/L. The refe rence range was not u sed to interpret this result as normal/abnor mal. Immature 0 % 0-1 Granulocytes-Relative (test code = 2801) Lab Interpretation (test Abnormal code = 65564-8) [facility] with platelet count + automated [id number] 06:01:00 Test Item Value Reference Range Interpretation Comments WBC (test code = 6690-2) 7.9 See_Comment [A utomated message] The system [employer] generated this result transmitted ref erence range: 3.5 - 10 .5 K/L. The refe rence range was not u sed to interpret this result as normal/abnor mal. RBC (test code = 789-8) 3.22 See_Comment L [Au tomated message] The system [employer] generated this result transmitted ref erence range: 3.93 - 5 .22 M/L. The refe rence range was not u sed to interpret this result as normal/abnor mal. MCHC (test code = 786-4) 31.8 See_Comment L [A utomated message] The system [employer] generated this result transmitted ref erence range: [...] See_Comment [Aut omated message] 777-3) The system [employer] generated this result transmitted ref erence range: 150 - 45 0 K/CU MM. The referen ce range was not u sed to interpret this result as normal/abnor mal. MPV (test code = 8.9 fL 9.4-12.3 L 16896-4) nRBC (test code = 413) 0 See_Comment [Aut omated message] The system [employer] generated this result transmitted ref erence range: [...] See_Comment [Aut omated message] 670) The system [employer] generated this result transmitted ref erence range: 1.56 - 6 .13 K/L. The refe rence range was not u sed to interpret this result as normal/abnor mal. # Lymphs (test code = 2.20 See_Comment [Auto mated message] 414) The system [employer] generated this result transmitted ref erence range: 1.18 - 3 .74 K/L. The refe rence range was not u sed to interpret this result as normal/abnor mal. # Monos (test code = 0.54 See_Comment H [Autom ated message] 415) The system [employer] generated this result transmitted ref erence range: 0.24 - 0 .36 K/L. The refe rence range was not u sed to interpret this result as normal/abnor mal. # Eos (test code = 416) 0.08 See_Comment [Au tomated message] The system [employer] generated this result transmitted ref erence range: 0.04 - 0 .36 K/L. The refe rence range was not u sed to interpret this result as normal/abnor mal. # Baso (test code = 417) 0.03 See_Comment [A utomated message] The system [employer] generated this result transmitted ref erence range: 0.01 - 0 .08 K/L. The refe rence range was not u sed to interpret this result as normal/abnor mal. Immature 0 % 0-1 Granulocytes-Relative (test code = 2801) Lab Interpretation (test Abnormal code = 01063-5) [facility] with platelet count + automated [id number] 06:01:00 Test Item Value Reference Range Interpretation Comments WBC (test code = 6690-2) 7.9 See_Comment [A utomated message] The system [employer] generated this result transmitted ref erence range: 3.5 - 10 .5 K/L. The refe rence range was not u sed to interpret this result as normal/abnor mal. RBC (test code = 789-8) 3.22 See_Comment L [Au tomated message] The system [employer] generated this result transmitted ref erence range: 3.93 - 5 .22 M/L. The refe rence range was not u sed to interpret this result as normal/abnor mal. MCHC (test code = 786-4) 31.8 See_Comment L [A utomated message] The system [employer] generated this result transmitted ref erence range: [...] See_Comment [Aut omated message] 777-3) The system [employer] generated this result transmitted ref erence range: 150 - 45 0 K/CU MM. The referen ce range was not u sed to interpret this result as normal/abnor mal. MPV (test code = 8.9 fL 9.4-12.3 L 94696-3) nRBC (test code = 413) 0 See_Comment [Aut omated message] The system [employer] generated this result transmitted ref erence range: [...] See_Comment [Aut omated message] 670) The system [employer] generated this result transmitted ref erence range: 1.56 - 6 .13 K/L. The refe rence range was not u sed to interpret this result as normal/abnor mal. # Lymphs (test code = 2.20 See_Comment [Auto mated message] 414) The system [employer] generated this result transmitted ref erence range: 1.18 - 3 .74 K/L. The refe rence range was not u sed to interpret this result as normal/abnor mal. # Monos (test code = 0.54 See_Comment H [Autom ated message] 415) The system [employer] generated this result transmitted ref erence range: 0.24 - 0 .36 K/L. The refe rence range was not u sed to interpret this result as normal/abnor mal. # Eos (test code = 416) 0.08 See_Comment [Au tomated message] The system [employer] generated this result transmitted ref erence range: 0.04 - 0 .36 K/L. The refe rence range was not u sed to interpret this result as normal/abnor mal. # Baso (test code = 417) 0.03 See_Comment [A utomated message] The system [employer] generated this result transmitted ref erence range: 0.01 - 0 .08 K/L. The refe rence range was not u sed to interpret this result as normal/abnor mal. Immature 0 % 0-1 Granulocytes-Relative (test code = 2801) Lab Interpretation (test Abnormal code = 68914-8) [facility] W/PLT COUNT & AUTO [id number] 06:01:00 Test Item Value Reference Range Interpretation [...] (BEAKER) (test code = 2801) ECG 12 [id number] 06:47:19Interface, External Ris In - 05/05/2021 6:47 AM CDTVentricular Rate 91 BPMAtrial Rate 91 BPMP-R Interval 126 msQRS Duration 78 msQ-T Interval 352 msQTC Calculation(Bazett) 432 msP [place] 44 degreesR [place] 28 degreesT [place] 39 degreesNormal sinus rhythmNormal ECGNo previous ECGs availableConfirmed by MD BELLAMY JOSEPH P ([id number]) on 05/05/2021 6:47:15 [facility] 12 [id number] 06:47:19Interface, External Ris In 05/05/2021 6:47 AM CDTVentricular Rate 91 BPMAtrial Rate 91 BPMP-R Inte rval 126 msQRS Duration 78 msQ-T Interval 352 msQTC Calculation(Bazett) 432 msP [place] 44 degreesR [place] 28 degreesT [place] 39 degreesNormal sinus rhythmNormal ECGNo previous ECGs availableConfirmed by MD BELLAMY JOSEPH P ([id number]) on 05/05/2021 6:47:15 [facility] 12 [id number] 06:47:19Interface, External Ris In 05/05/2021 6:47 AM CDTVentricular Rate 91 BPMAtrial Rate 91 BPMP-R Interval 126 msQRS Duration 78 msQ-T Interval 352 msQTC Calculation(Bazett) 432 msP [place] 44 degreesR [place] 28 degreesT [place] 39 degreesNormal sinus rhythmNormal ECGNo previous ECGs availableConfirmed by OKSANA LANDRUM MD, JOSEPH P ([id number]) on 05/05/2021 6:47:15 [facility] 12 [id number] 06:47:19Interface, External Ris In - 05/05/2021 6:47 AM CDTVentricular Rate 91 BPMAtrial Rate 91 BPMP-R Interval 126 msQRS Duration 78 msQ-T Interval 352 msQTC Calculation(Bazett) 432 msP [place] 44 degreesR [place] 28 degreesT [place] 39 degreesNormal sinus rhythmNormal ECGNo previous ECGs availableConfirmed by MD BELLAMY JOSEPH P ([id number]) on 05/05/2021 6:47:15 [facility] [id number] 06:17:00 Test Item Value Reference Range Interpretation Comments ABO Grouping (test code = 2588) O Rh Factor (test code = 2589) POS [facility], [id number] 06:17:00 Test Item Value Reference Range Interpretation Comments ABO Grouping (test code = 2588) O Rh Factor (test code = 2589) POS [facility], [id number] 06:17:00 Test Item Value Reference Range Interpretation Comments ABO Grouping (test code = 2588) O Rh Factor (test code = 2589) POS [facility], [id number] 06:17:00 Test Item Value Reference Range Interpretation Comments ABO Grouping (test code = 2588) O Rh Factor (test code = 2589) [facility] ([facility]) 2021-05-05 05:01:00 Test Item Value Reference Range Interpretation Comments ABO/RH AUTOMATED (BEAKER) (test O POSITIVE code = 2260) Ab Scrn (test code = 890-4) NEGATIVE [facility] ([facility]) 2021-05-05 05:01:00 Test Item Value Reference Range Interpretation Comments ABO/RH AUTOMATED (BEAKER) (test O POSITIVE code = 2260) Ab Scrn (test code = 890-4) NEGATIVE [facility] ([facility]) 2021-05-05 05:01:00 Test Item Value Reference Range Interpretation Comments ABO/RH AUTOMATED (BEAKER) (test O POSITIVE code = 2260) Ab Scrn (test code = 890-4) NEGATIVE [facility] ([facility]) 2021-05-05 05:01:00 Test Item Value Reference Range Interpretation Comments ABO/RH AUTOMATED (BEAKER) (test O POSITIVE code = 2260) Ab Scrn (test code = 890-4) NEGATIVE [facility]PT/[id number] 04:35:00 Test Item Value Reference Interpretation Comments Range Protime (test code = 13.7 See_Comment [Autom ated 5902-2) message] The system which generated this result transmitted reference range : 11.9 - 14.2 seconds. The reference range was not used to interpret this result as normal/abnormal . INR (test code = 1.07 See_Comment [Automated Brilig1-6) message] The system which generated this result [...] valves. Lab Interpretation Normal (test code = 64942-8) [facility]PT/[id number] 04:35:00 Test Item Value Reference Interpretation Comments Range Protime (test code = 13.7 See_Comment [Autom ated 5902-2) message] The system which generated this result transmitted reference range : 11.9 - 14.2 seconds. The reference range was not used to interpret this result as normal/abnormal . INR (test code = 1.07 See_Comment [Automated Brilig1-6) message] The system which generated this result [...] valves. Lab Interpretation Normal (test code = 43404-4) [facility]PT/[id number] 04:35:00 Test Item Value Reference Interpretation Comments [...] valves. Lab Interpretation Normal (test code = 98185-5) [facility]PT/[id number] 04:35:00 Test Item Value Reference Interpretation Comments [...] valves. Lab Interpretation Normal (test code = 21208-0) [facility] HospitalPROTHROMBIN TIME/[id number] 04:35:00 Test Item Value Reference Range Interpretation Comments PROTIME (BEAKER) 13.7 seconds 11.9-14.2 (test code = 759) INR (BEAKER) (test 1.07 See_Comment [Automat ed message] code = 370) The system [employer] generated this result transmitted ref erence range: <=5.90. The reference range was not used to int erpret this result as normal/abnormal . RECOMMENDED COUMADIN/WARFARIN INR THERAPY RANGESSTANDARD DOSE: 2.0 - 3.0 Includes: PROPHYLAXIS forvenous thrombosis, systemic embolization; TREATMENT for venous thrombosis and/or pulmonary embolus.HIGH RISK: Target INR is 2.5-3.5 for patients with mechanical heart valves.High Sensitivity Troponin [id number] 01:56:00 Test Item Value Reference Range Interpretation Comments Troponin I HS <4 See_Comment [Automated (test code = message] The 26290-5) system which generated this result transmitted reference range : <=17 pg/ml. The reference range was not used to interpret this result as normal/abnormal . TORRES (test code = Plug Cutting Machine Operator ID - TORRES) DBThe PROPERTY COORDINATOR STAT High Sensitivity Troponin-I results should be used in conjunction with other diagnostic information such as ECG, clinical observations and information, and patient symptoms to aid in the diagnosis of [place]. Lab Interpretation Normal (test code = 11501-2) [facility] HospitalHigh Sensitivity Troponin [id number] 01:56:00 Test Item Value Reference Range Interpretation Comments Troponin I HS <4 See_Comment [Automated (test code = message] The [employer]) system which generated this result transmitted reference range : <=17 pg/ml. The reference range was not used to interpret this result as normal/abnormal . TORRES (test code = Plug Cutting Machine Operator ID - TORRES) DBThe PROPERTY COORDINATOR STAT High Sensitivity Troponin-I results should be used in conjunction with other diagnostic information such as ECG, clinical observations and information, and patient symptoms to aid in the diagnosis of OH. Lab Interpretation Normal (test code = 51651-2) [facility] Hospital[facility] Troponin [id number] 01:56:00 Test Item Value Reference Range Interpretation Comments Troponin I HS <4 See_Comment [Automated (test code = message] The [employer]) system which generated this result transmitted reference range : <=17 pg/ml. The reference range was not used to interpret this result as normal/abnormal . TORRES (test code = Plug Cutting Machine Operator ID - TORRES) DBThe PROPERTY COORDINATOR STAT High Sensitivity Troponin-I results should be used in conjunction with other diagnostic information such as ECG, clinical observations and information, and patient symptoms to aid in the diagnosis of OH. Lab Interpretation Normal (test code = 91406-7) [facility] Troponin [id number] 01:56:00 Test Item Value Reference Range Interpretation Comments Troponin I HS <4 See_Comment [Automated (test code = message] The 21995-5) system which generated this result transmitted reference range : <=17 pg/ml. The reference range was not used to interpret this result as normal/abnormal . TORRES (test code = Plug Cutting Machine Operator ID - TORRES) DBThe PROPERTY COORDINATOR STAT High Sensitivity Troponin-I results should be used in conjunction with other diagnostic information such as ECG, clinical observations and information, and patient symptoms to aid in the diagnosis of [place]. Lab Interpretation Normal (test code = 41547-7) [facility] Hospital[facility]IT[facility]ITY TROPONIN [id number] 01:56:00 Test Item Value Reference Range Interpretation Comments HIGH SENSITIVITY < pg/ml See_Comment [Automated message] TROPONIN I (test code = The system which 3047892) generated this result transmitted ref erence range: <=17. Th e reference range was not used to interpr et this result as normal/abnormal . Plug Cutting Machine Operator ID - DBThe PROPERTY COORDINATOR STAT High Sensitivity Troponin-I results should be used in conjunctionwith other diagnostic information such as ECG, clinical observations and information, and patient symptoms to aid in the diagnosis of [place].Ketones, [id number] 01:40:00 Test Item Value Reference Range Interpretation Comments Ketones, Blood (test code = 1103) 0.4 mmol/L <0.4 H Lab Interpretation (test code = Abnormal 10181-8) [facility], [id number] 01:40:00 Test Item Value Reference Range Interpretation Comments Ketones, Blood (test code = 1103) 0.4 mmol/L <0.4 H Lab Interpretation (test code = Abnormal 51077-0) [facility], [id number] 01:40:00 Test Item Value Reference Range Interpretation Comments Ketones, Blood (test code = 1103) 0.4 mmol/L <0.4 H Lab Interpretation (test code = Abnormal 33497-5) [facility], [id number] 01:40:00 Test Item Value Reference Range Interpretation Comments Ketones, Blood (test code = 1103) 0.4 mmol/L <0.4 H Lab Interpretation (test code = Abnormal 13502-4) [facility] [id number] 01:40:00 Test Item Value Reference Range Interpretation Comments KETONES, BLOOD (BEAKER) (test code 0.4 mmol/L <0.4 H = 1103) SARS-CoV2/RT-PCR (Asymptomatic ONLY)2021-05-05 01:30:00 Test Item Value Reference Interpretation Comments Range SARS-COV2/RT-PCR Negative Negative The SARS-Co V-2 (test code = target nucleic 59557-9) acids are not detected in thi s [...] SARS-CoV-2 in a nasopharyngeal swab specimen collec alne from individual s suspected of COVID-19 by [...] revoked sooner. Fact Sheet for Healthcare Providers: https://www.THEMA/Documents/Xp ert%20Xpress%20SAR S%20CoV-2/Fact%20S heets/302-3802%20S ARS-COV-2%20HEALTH CARE%20PROVIDERS%2 0FACT%20SHEET.pdf Fact Sheet for Healthcare Patients: https://www.THEMA/Documents/Xp ert%20Xpress%20SAR S%20CoV-2/Fact%20S heets/302-3801%20S ARS-COV-2%20PATIEN T%20FACT%20SHEET.p df Lab Interpretation Normal (test code = 18778-8) [facility]21-[facility]-05 01:30:00 Test Item Value Reference Interpretation Comments Range SARS-COV2/RT-PCR Negative Negative The SARS-Co V-2 (test code = target nucleic 91467-5) acids are not detected in thi s [...] revoked sooner. Fact Sheet for Healthcare Providers: https://www.THEMA/Documents/Xp ert%20Xpress%20SAR S%20CoV-2/Fact%20S heets/302-3802%20S ARS-COV-2%20HEALTH CARE%20PROVIDERS%2 0FACT%20SHEET.pdf Fact Sheet for Healthcare Patients: https://www.THEMA/Documents/Xp ert%20Xpress%20SAR S%20CoV-2/Fact%20S heets/302-3801%20S ARS-COV-2%20PATIEN T%20FACT%20SHEET.p df Lab Interpretation Normal (test code = 78081-2) [facility]2021-05-05 01:30:00 Test Item Value Reference Interpretation Comments Range SARS-COV2/RT-PCR Negative Negative The SARS-Co V-2 (test code = target nucleic 20177-8) acids are not detected in thi s [...] revoked sooner. Fact Sheet for Healthcare Providers: https://www.THEMA/Documents/Xp ert%20Xpress%20SAR S%20CoV-2/Fact%20S heets/302-3802%20S ARS-COV-2%20HEALTH CARE%20PROVIDERS%2 0FACT%20SHEET.pdf Fact Sheet for Healthcare Patients: https://www.THEMA/Documents/Xp ert%20Xpress%20SAR S%20CoV-2/Fact%20S heets/302-3801%20S ARS-COV-2%20PATIEN T%20FACT%20SHEET.p df Lab Interpretation Normal (test code = 25610-3) [facility]2021-05-05 01:30:00 Test Item Value Reference Interpretation Comments Range SARS-COV2/RT-PCR Negative Negative The SARS-Co V-2 (test code = target nucleic 77818-9) acids are not detected in thi s [...] revoked sooner. Fact Sheet for Healthcare Providers: https://www.THEMA/Documents/Xp ert%20Xpress%20SAR S%20CoV-2/Fact%20S heets/302-3802%20S ARS-COV-2%20HEALTH CARE%20PROVIDERS%2 0FACT%20SHEET.pdf Fact Sheet for Healthcare Patients: https://www.THEMA/Documents/Xp ert%20Xpress%20SAR S%20CoV-2/Fact%20S heets/302-3801%20S ARS-COV-2%20PATIEN T%20FACT%20SHEET.p df Lab Interpretation Normal (test code = 35629-9) [facility])2021-05-05 01:30:00 Test Item Value Reference Range Interpretation Comments SARS-COV2/RT-PCR Negative Negative The SARS-Co V-2 target (test code = nucleic acids a re not 2260448) detected in thi s specimen. Negative result [...] revoked sooner. Fact Sheet for Healthcare Providers: https://www.[employer]/Documents/Xpert%20Xpress%20SARS%20CoV-2/Fact%20Sheets/3023802%20SARS-COV -2%20HEALTHCARE%20PROVIDERS%20FACT%20SHEET.pdf Fact Sheet for Healthcare Patients: https://www.[employer]/Documents/Xpert %20Xpress%20SARS%20CoV-2/Fact%20Sheets/3023801%75ADBI-LFN-0%20PATIENT%20FACT%20 SHEET.pdfBlood gas, [id number] 01:22:00 Test Item Value Reference Range Interpretation Comments pH, Niranjan (test code = 7.35 7.32-7.42 6386-6) pCO2, Niranjan (test code = 39 See_Comment L [Aut omated 755) message] The sy stem which generated this result transmitted reference range : 41 - 51 mm Hg. The reference range was not used to interpret this result as normal/abnormal . pO2, Niranjan (test code = 59 See_Comment H [Auto mated 2605-2) message] The sy stem which generated this result transmitted reference range : 25 - 40 mm Hg. The reference range was not used to interpret this result as normal/abnormal . O2 Sat, Niranjan (test code 89.4 % 40-70 H = 2711-0) HCO3, Niranjan (test code = 21 mmol/L 21- 74668-7) Base Excess, Niranjan (test -4.5 mmol/L -2-3 L code = 1927-3) Patient Temperature 37.0 (test code = 8310-5) FIO2 (test code = 1819) 21 Lab Interpretation Abnormal (test code = 67622-9) [facility] gas, [id number] 01:22:00 Test Item Value Reference Range Interpretation [...] Niranjan (test code = 21 mmol/L 21-29 72213-8) Base Excess, Niranjan (test -4.5 mmol/L -2-3 L code = 1927-3) Patient Temperature 37.0 (test code = 8310-5) FIO2 (test code = 1819) 21 Lab Interpretation Abnormal (test code = 93116-4) [facility] gas, [id number] 01:22:00 Test Item Value Reference Range Interpretation [...] Niranjan (test code = 21 mmol/L 21-29 27824-0) Base Excess, Niranjan (test -4.5 mmol/L -2-3 L code = 1927-3) Patient Temperature 37.0 (test code = 8310-5) FIO2 (test code = 1819) 21 Lab Interpretation Abnormal (test code = 00577-2) [facility] gas, [id number] 01:22:00 Test Item Value Reference Range Interpretation [...] Niranjan (test code = 21 mmol/L 21-29 26789-0) Base Excess, Niranjan (test -4.5 mmol/L -2-3 L code = 1927-3) Patient Temperature 37.0 (test code = 8310-5) FIO2 (test code = 1819) 21 Lab Interpretation Abnormal (test code = 42601-2) [facility] GAS, [id number] 01:22:00 Test Item Value Reference Range Interpretation [...] (BEAKER) (test code = 1819) 21.0 ECG/EKG [id number] 23:15:Cherie Guerra MD 05/05/2021 2:11 AMECG/EKG Interpretation Date/Time: 05/04/2021 11:26 PMPerformed by: Cherie Faustin MDAuthorized by: Cherie Faustin MD The ECG was interpreted by ED physician. The ECG is interpreted as sinus rhythm. Rate is normal rate. Heart rate is 91 BPM.ST segments normal. T-wave inversion in lead(s) V1 and V2. Clinical Impression: normal ECGCHI Motion Picture & Television HospitalECG/EKG Uwfgvajmxxfzqk8133-29-26 23:15:Cherie Guerra MD 05/05/2021 2:11 AMECG/EKG Interpretation Date/Time: 05/04/2021 11:26 PMPerformed by: Cehrie Faustin MDAuthorized by: Cherie Faustin MD The ECG was interpreted by ED physician. The ECG is interpreted as sinus rhythm. Rate is normal rate. Heart rate is 91 BPM.ST segments normal. T-wave inversion in lead(s) V1 and V2. Clinical Impression: normal ECGCHI Motion Picture & Television HospitalECG/EKG Ljtqzlkhngboat7752-83-99 23:15:Cherie Guerra MD 05/05/2021 2:11 AMECG/EKG Interpretation Date/Time: 05/04/2021 11:26 PMPerformed by: Cherie Faustin MDAuthorized by: Cherie Faustin MD The ECG was interpreted by ED physician. The ECG is interpreted as sinus rhythm. Rate is normal rate. Heart rate is 91 BPM.ST segments normal. T-wave inversion in lead(s) V1 and V2. Clinical Impression: normal ECGCHI [facility] Television HospitalECG/EKG Nykntvufekqpxe5810-26-61 23:15:Cherie Guerra MD 05/05/2021 2:11 AMECG/EKG Interpretation Date/Time: 05/04/2021 11:26 PMPerformed by: Cherie Faustin MDAuthorized by: Cherie Faustin MD The ECG was interpreted by ED physician. The ECG is interpreted as sinus rhythm. Rate is normal rate. Heart rate is 91 BPM.ST segments normal. T-wave inversion in lead(s) V1 and V2. Clinical Impression: normal ECGSan [facility] County Psychiatric HospitalHEPATIC FUNCTION [id number] 22:01:00 Test Item Value Reference Range Interpretation [...] Specimen moderately (test code = 347) hemolyzed Plug Cutting Machine Operator ID - [id number] 21:53:00 Test Item Value Reference Range Interpretation Comments Amylase (test code = 143 U/L 25-125 H Specime n 1798-8) markedly hemolyzed TORRES (test code = TORRES) Plug Cutting Machine Operator ID - DB Lab Interpretation Abnormal (test code = 79657-0) [facility] HospitalLipase2021-08-23 21:53:00 Test Item Value Reference Range Interpretation Comments Lipase (test code = 3040-3) 97 U/L 8-78 H TORRES (test code = TORRES) Plug Cutting Machine Operator ID - DB Lab Interpretation (test Abnormal code = 98546-9) [facility] HospitalAmylase2021-08-23 21:53:00 Test Item Value Reference Range Interpretation Comments Amylase (test code = 143 U/L 25-125 H Specime n 1798-8) markedly hemolyzed TORRES (test code = TORRES) Plug Cutting Machine Operator ID - DB Lab Interpretation Abnormal (test code = 80238-1) [facility] Hospital[facility]ase2021-08-23 21:53:00 Test Item Value Reference Range Interpretation Comments Lipase (test code = 3040-3) 97 U/L 8-78 H TORRES (test code = TORRES) Plug Cutting Machine Operator ID - DB Lab Interpretation (test Abnormal code = 11576-8) [facility] HospitalAmylase2021-08-23 21:53:00 Test Item Value Reference Range Interpretation Comments Amylase (test code = 143 U/L 25-125 H Specime n 1798-8) markedly hemolyzed TORRES (test code = TORRES) Plug Cutting Machine Operator ID - DB Lab Interpretation Abnormal (test code = 57296-4) [facility] Hospital[facility]2021-08-23 21:53:00 Test Item Value Reference Range Interpretation Comments Lipase (test code = 3040-3) 97 U/L 8-78 H TORRES (test code = TORRES) Plug Cutting Machine Operator ID - DB Lab Interpretation (test Abnormal code = 76847-7) [facility] HospitalAmylase2021-08-23 21:53:00 Test Item Value Reference Range Interpretation Comments Amylase (test code = 143 U/L 25-125 H Specime n 1798-8) markedly hemolyzed TORRES (test code = TORRES) Plug Cutting Machine Operator ID - DB Lab Interpretation Abnormal (test code = 09374-1) [facility]2021-08-23 21:53:00 Test Item Value Reference Range Interpretation Comments Lipase (test code = 3040-3) 97 U/L 8-78 H TORRES (test code = TORRES) Plug Cutting Machine Operator ID - DB Lab Interpretation (test Abnormal code = 11099-9) [facility] HospitalBASIC METABOLIC [id number] 21:53:00 Test Item Value Reference Range Interpretation [...] S NOT APPLICABLE FOR DIALYSIS PATIEN TS. Plug Cutting Machine Operator ID - [id number] 21:53:00 Test Item Value Reference Range Interpretation Comments AMYLASE (BEAKER) (test 143 U/L 25-125 H Speci men markedly code = 349) hemolyzed Plug Cutting Machine Operator ID - [id number] 21:53:00 Test Item Value Reference Range Interpretation Comments LIPASE (BEAKER) (test code = 749) 97 U/L 8-78 H Plug Cutting Machine Operator ID - DBCBC W/PLT COUNT & AUTO [id number] 19:51:00 Test Item Value Reference Range Interpretation [...] PERCENT (BEAKER) (test code = 2801) POC-Glucose [id number] 08:41:00 Test Item Value Reference Range Interpretation Comments POC-Glucose Meter (test 104 mg/dL 70-110 : TE STED AT [facility] code = 1538) [address] [place] [address], 770 30: Plug Cutting Machine Operator/Techni aldo ID = [id number] for HUSSEIN LEMON Lab Interpretation (test Normal code = 61408-9) [facility] [place]-Glucose [id number] 08:41:00 Test Item Value Reference Range Interpretation Comments POC-Glucose Meter (test 104 mg/dL 70-110 : TE STED AT [facility] code = 1538) [address] [place] [address], 770 30: Plug Cutting Machine Operator/Techni aldo ID = [id number] for HUSSEIN LEMON Lab Interpretation (test Normal code = 06635-2) [facility]-Glucose [id number] 08:41:00 Test Item Value Reference Range Interpretation Comments POC-Glucose Meter (test 104 mg/dL 70-110 : TE STED AT [facility] code = 1538) [address] [facility], 770 30: Plug Cutting Machine Operator/Techni aldo ID = [id number] for HUSSEIN LEMON Lab Interpretation (test Normal code = 47211-5) [facility]-Glucose [id number] 08:41:00 Test Item Value Reference Range Interpretation Comments POC-Glucose Meter (test 104 mg/dL 70-110 : TE STED AT [facility] code = 1538) [address] [facility], 770 30: Plug Cutting Machine Operator/Techni aldo ID = [id number] for HUSSEIN LEOMN Lab Interpretation (test Normal code = 34006-9) [facility]-GLUCOSE [id number] 08:41:00 Test Item Value Reference Range Interpretation Comments POC-GLUCOSE METER 104 mg/dL 70-110 : TESTED A T [facility] [address] (BEAKER) (test code = [facility], 1538) [address]: Plug Cutting Machine Operator/Techni aldo ID = [id number] for HUSSEIN DAVID Comprehensive metabolic [id number] 06:49:00 Test Item Value Reference Range Interpretation Comments Protein, Total (test 6.8 See_Comment [Autom ated code = 2885-2) message] The system which generated this result transmit lane reference range : 6.0 - 8.3 gm/dL . The reference range was not u sed to interpret th is result as normal/abnormal . Albumin (test code = 3.5 g/dL 3.5-5 16961-8) Alkaline Phosphatase 44 U/L 40-150 (test code = 6768-6) Total Bilirubin (test 0.3 mg/dL 0.2-1.2 code = 1975-2) Sodium (test code = 139 meq/L 597-482 9402-2) Potassium (test code 3.8 meq/L 3.5-5.1 = 2823-3) Chloride (test code = 104 meq/L 98-107 2075-0) CO2 (test code = 27 meq/L 22-29 8-9) BUN (test code = 12 mg/dL 7-21 3094-0) Creatinine (test code 1.05 mg/dL 0.57-1.25 = 2160-0) Glucose (test code = 79 mg/dL 70-105 2345-7) Calcium (test code = 8.4 mg/dL 8.4-10.2 94554-7) AST (test code = 49 U/L 5-34 H 1920-8) ALT (test code = 41 U/L 6-55 1742-6) EGFR (test code = 52 mL/min/1.[address] [place] [address]-7) NOT ACCURATE CREATININE CLEARANCE IN PREDICTING GLOMERULAR FILTRATION RATE . ESTIMATED GFR I S NOT APPLICABLE FOR DIALYSIS PATIEN TORRES (test code = TORRES) Plug Cutting Machine Operator ID - HUMBLE M Lab Interpretation Abnormal (test code = 75857-5) [facility] HospitalComprehensive metabolic [id number] 06:49:00 Test Item Value Reference Range Interpretation Comments Protein, Total (test 6.8 See_Comment [Autom ated code = 2885-2) message] The system which generated this result transmit lane reference range : 6.0 - 8.3 gm/dL . The reference range was not u sed to interpret th is result as normal/abnormal . Albumin (test code = 3.5 g/dL 3.5-5 55872-7) Alkaline Phosphatase 44 U/L 40-150 (test code = 6768-6) Total Bilirubin (test 0.3 mg/dL 0.2-1.2 code = 1974-2) Sodium (test code = 139 meq/L 533-057 1957-2) Potassium (test code 3.8 meq/L 3.5-5.1 = 2823-3) Chloride (test code = 104 meq/L 98-107 5-0) CO2 (test code = 27 meq/L 22-29 2027-9) BUN (test code = 12 mg/dL 7-21 3094-0) Creatinine (test code 1.05 mg/dL 0.57-1.25 = 2160-0) Glucose (test code = 79 mg/dL 70-105 2345-7) Calcium (test code = 8.4 mg/dL 8.4-10.2 76231-2) AST (test code = 49 U/L 5-34 H 1920-8) ALT (test code = 41 U/L 6-55 1742-6) EGFR (test code = 52 mL/min/1.[address] [place] [address]-4) NOT ACCURATE CREATININE CLEARANCE IN PREDICTING GLOMERULAR FILTRATION RATE . ESTIMATED GFR I S NOT APPLICABLE FOR DIALYSIS PATIEN TS. TORRES (test code = TORRES) Plug Cutting Machine Operator ID - HUMBLE M Lab Interpretation Abnormal (test code = 63338-3) [facility] HospitalComprehensive metabolic [id number] 06:49:00 Test Item Value Reference Range Interpretation Comments Protein, Total (test 6.8 See_Comment [Autom ated code = 2885-2) message] The system which generated this result transmit lane reference range : 6.0 - 8.3 gm/dL . The reference range was not u sed to interpret th is result as normal/abnormal . Albumin (test code = 3.5 g/dL 3.5-5 45516-9) Alkaline Phosphatase 44 U/L 40-150 (test code = 6768-6) Total Bilirubin (test 0.3 mg/dL 0.2-1.2 code = 1974-2) Sodium (test code = 139 meq/L 691-943 4286-2) Potassium (test code 3.8 meq/L 3.5-5.1 = 2823-3) Chloride (test code = 104 meq/L 98-107 2075-0) CO2 (test code = 27 meq/L 22-29 8-9) BUN (test code = 12 mg/dL 7-21 3094-0) Creatinine (test code 1.05 mg/dL 0.57-1.25 = 2160-0) Glucose (test code = 79 mg/dL 70-105 2345-7) Calcium (test code = 8.4 mg/dL 8.4-10.2 03621-5) AST (test code = 49 U/L 5-34 H 1920-8) ALT (test code = 41 U/L 1742-6) EGFR (test code = 52 mL/min/1.[address] [place] [address]-3) NOT ACCURATE CREATININE CLEARANCE IN PREDICTING GLOMERULAR FILTRATION RATE . ESTIMATED GFR I S NOT APPLICABLE FOR DIALYSIS PATIEN TS. TORRES (test code = TORRES) Plug Cutting Machine Operator ID - HUMBLE M Lab Interpretation Abnormal (test code = 15310-1) [facility] HospitalCom[facility] metabolic [id number] 06:49:00 Test Item Value Reference Range Interpretation Comments Protein, Total (test 6.8 See_Comment [Autom ated code = 2885-2) message] The system which generated this result transmit lane reference range : 6.0 - 8.3 gm/dL . The reference range was not u sed to interpret th is result as normal/abnormal . Albumin (test code = 3.5 g/dL 3.5-5 37164-9) Alkaline Phosphatase 44 U/L 40-150 (test code = 6768-6) Total Bilirubin (test 0.3 mg/dL 0.2-1.2 code = 1975-2) Sodium (test code = 139 meq/L 917-555 3062-2) Potassium (test code 3.8 meq/L 3.5-5.1 = 2823-3) Chloride (test code = 104 meq/L 98-107 2075-0) CO2 (test code = 27 meq/L 22-29 2028-9) BUN (test code = 12 mg/dL 7-21 3094-0) Creatinine (test code 1.05 mg/dL 0.57-1.25 = 2160-0) Glucose (test code = 79 mg/dL 70-105 2345-7) Calcium (test code = 8.4 mg/dL 8.4-10.2 35396-1) AST (test code = 49 U/L 5-34 H 1920-8) ALT (test code = 41 U/L 6-55 1742-6) EGFR (test code = 52 mL/min/1.[address] [place] [address]-0) NOT ACCURATE CREATININE CLEARANCE IN PREDICTING GLOMERULAR FILTRATION RATE . ESTIMATED GFR I S NOT APPLICABLE FOR DIALYSIS PATIEN TS. TORRES (test code = TORRES) Plug Cutting Machine Operator ID - HUMBLE M Lab Interpretation Abnormal (test code = 21413-6) [facility] HospitalCOMPREHENSIVE METABOLIC [id number] 06:49:00 Test Item Value Reference Range Interpretation [...] S NOT APPLICABLE FOR DIALYSIS PATIEN TS. Plug Cutting Machine Operator ID - HUMBLE MPOCT-GLUCOSE [id number] 16:54:00 Test Item Value Reference Range Interpretation Comments POC-GLUCOSE METER 171 mg/dL 70-110 H : TESTED A T [facility] 67[address] (BEAKER) (test code = [place], 1538) [address]: Plug Cutting Machine Operator/Techni aldo ID = [id number] for ALBINO GONZALEZ Hemoglobin [id number] 15:22:00 Test Item Value Reference Range Interpretation Comments Hemoglobin A1C (test code = 4548-4) 6.2 % 4.3-6.1 H Lab Interpretation (test code = Abnormal 25197-4) [facility] HospitalHemoglobin [id number] 15:22:00 Test Item Value Reference Range Interpretation Comments Hemoglobin A1C (test code = 4548-4) 6.2 % 4.3-6.1 H Lab Interpretation (test code = Abnormal 21072-2) [facility] HospitalHemoglobin [id number] 15:22:00 Test Item Value Reference Range Interpretation Comments Hemoglobin A1C (test code = 4548-4) 6.2 % 4.3-6.1 H Lab Interpretation (test code = Abnormal 27454-3) [facility] HospitalHemoglobin [id number] 15:22:00 Test Item Value Reference Range Interpretation Comments Hemoglobin A1C (test code = 4548-4) 6.2 % 4.3-6.1 H Lab Interpretation (test code = Abnormal 57936-2) [facility] HospitalHEMOGLOBIN [id number] 15:22:00 Test Item Value Reference Range Interpretation Comments HEMOGLOBIN A1C (BEAKER) (test code = 6.2 % 4.3-6.1 H 368) POCT-GLUCOSE [id number] 12:56:00 Test Item Value Reference Range Interpretation Comments POC-GLUCOSE METER 93 mg/dL 70-110 : Notified RN/MD: TESTED (ZONIAAKER) (test code = AT [facility] [address] [facility] 1538) [facility], [facility] 30: Plug Cutting Machine Operator/Techni aldo ID = [id number] for Simm Arely gorman [place], [id number] 12:02:00Reason for exam:->[facility] : 1950 Sex: FFluoroscopic unit utilized for a procedure performed in the OR. No interpretation was requested. Refer to the operative report for findings. Refer to PACS for patient radiation dose information.[facility] Endoscopic Retrograde Wxzzniggegtvgvulysdqasyb0248-82-05 12:02:00Interface, External Ris In 03/10/2021 12:18 PM CDTFluoroscopic unit utilized for a procedure performed in the OR. No interpretation was requested. Refer to the operative report for findings. Referto PACS for patient radiation dose information.[facility] Endoscopic Retrograde Lurfpxdjfpnggiikdoyfkoiu9299-94-95 12:02:00Interface, External Ris In 03/10/2021 12:18 PM CDTFluoroscopic unit utilized for a procedure performed in the OR. No interpretation was requested. Refer to the operative report for findings. Referto PACS for patient radiation dose information.[facility] Endoscopic Retrograde Owbvqwfrkdbbanezwexngabe7140-31-41 12:02:00Interface, External Ris In 03/10/2021 12:18 PM CDTFluoroscopic unit utilized for a procedure performed in the OR. No interpretation was requested. Refer to the operative report for findings. Referto PACS for patient radiation dose information.[facility] Endoscopic Retrograde Zlfekkbpnvqslsubjedqyink0109-18-37 12:02:00Interface, External Ris In 03/10/2021 12:18 PM CDTFluoroscopic unit utilized for a procedure performed in the OR. No interpretation was requested. Refer to the operative report for findings. Referto PACS for patient radiation dose information.[facility] HospitalPOCT-GLUCOSE [id number] 09:27:00 Test Item Value Reference Range Interpretation Comments POC-GLUCOSE METER 74 mg/dL 70-110 : TESTED A T [facility] [address] ([facility]) (test code = [facility], 1538) [address]: Plug Cutting Machine Operator/Techni aldo ID = [id number] for ALBINO ROSS COMPREHENSIVE METABOLIC [id number] 05:49:00 Test Item Value Reference Range Interpretation Comments TOTAL PROTEIN 6.8 gm/dL 6.0-8.3 ([facility]) (test code = 770) ALBUMIN ([facility]) 3.5 g/dL 3.5-5.0 (test code = 1145) ALKALINE PHOSPHATASE 45 U/L 40-150 ([facility]) (test code = 346) BILIRUBIN [...] S NOT APPLICABLE FOR DIALYSIS PATIEN TS. Plug Cutting Machine Operator ID - HUMBLE [facility] (Hemogram only)2021-03-10 05:10:00 Test Item Value Reference Range Interpretation Comments WBC (test code = 6690-2) 9.1 See_Comment [A utomated message] The system [employer] generated this result transmitted ref erence range: 3.5 - 10 .5 K/L. The refe rence range was not u sed to interpret this result as normal/abnor mal. RBC (test code = 789-8) 3.57 See_Comment L [Au tomated message] The system Sav[employer]Sw[employer] generated this result transmitted ref erence range: 3.93 - 5 .22 M/L. The refe rence range was not u sed to interpret this result as normal/abnor mal. MCHC (test code = 786-4) 30.9 See_Comment L [A utomated message] The system [employer] generated this result transmitted ref erence range: [...] See_Comment [Aut omated message] 777-3) The system [employer] generated this result transmitted ref erence range: 150 - 45 0 K/CU MM. The referen ce range was not u sed to interpret this result as normal/abnor mal. MPV (test code = 9.3 fL 9.4-12.3 L 43341-4) nRBC (test code = 413) 0 See_Comment [Aut omated message] The system [employer] generated this result transmitted ref erence range: 0 - 0 /1 00 WBC. The refere nce range was not u sed to interpret this result as normal/abnor mal. Lab Interpretation (test Abnormal code = 19591-5) [facility] 05:10:00 Test Item Value Reference Range Interpretation Comments WBC (test code = 6690-2) 9.1 See_Comment [A utomated message] The system Sav[employer]Sw[employer] generated this result transmitted ref erence range: 3.5 - 10 .5 K/L. The refe rence range was not u sed to interpret this result as normal/abnor mal. RBC (test code = 789-8) 3.57 See_Comment L [Au tomated message] The system [employer] generated this result transmitted ref erence range: 3.93 - 5 .22 M/L. The refe rence range was not u sed to interpret this result as normal/abnor mal. MCHC (test code = 786-4) 30.9 See_Comment L [A utomated message] The system [employer] generated this result transmitted ref erence range: [...] See_Comment [Aut omated message] 777-3) The system [employer] generated this result transmitted ref erence range: 150 - 45 0 K/CU MM. The referen ce range was not u sed to interpret this result as normal/abnor mal. MPV (test code = 9.3 fL 9.4-12.3 L 37344-9) nRBC (test code = 413) 0 See_Comment [Aut omated message] The system [employer] generated this result transmitted ref erence range: 0 - 0 /1 00 WBC. The refere nce range was not u sed to interpret this result as normal/abnor mal. Lab Interpretation (test Abnormal code = 44547-7) [facility] 05:10:00 Test Item Value Reference Range Interpretation Comments WBC (test code = 6690-2) 9.1 See_Comment [A utomated message] The system Sav[employer] generated this result transmitted ref erence range: 3.5 - 10 .5 K/L. The refe rence range was not u sed to interpret this result as normal/abnor mal. RBC (test code = 789-8) 3.57 See_Comment L [Au tomated message] The system [employer] generated this result transmitted ref erence range: 3.93 - 5 .22 M/L. The refe rence range was not u sed to interpret this result as normal/abnor mal. MCHC (test code = 786-4) 30.9 See_Comment L [A utomated message] The system [employer] generated this result transmitted ref erence range: [...] See_Comment [Aut omated message] 777-3) The system [employer] generated this result transmitted ref erence range: 150 - 45 0 K/CU MM. The referen ce range was not u sed to interpret this result as normal/abnor mal. MPV (test code = 9.3 fL 9.4-12.3 L 53250-5) nRBC (test code = 413) 0 See_Comment [Aut omated message] The system [employer] generated this result transmitted ref erence range: 0 - 0 /1 00 WBC. The refere nce range was not u sed to interpret this result as normal/abnor mal. Lab Interpretation (test Abnormal code = 34858-4) [facility]10 05:10:00 Test Item Value Reference Range Interpretation Comments WBC (test code = 6690-2) 9.1 See_Comment [A utomated message] The system Sav[employer]Sw[employer] generated this result transmitted ref erence range: 3.5 - 10 .5 K/L. The refe rence range was not u sed to interpret this result as normal/abnor mal. RBC (test code = 789-8) 3.57 See_Comment L [Au tomated message] The system Sav[employer] generated this result transmitted ref erence range: 3.93 - 5 .22 M/L. The refe rence range was not u sed to interpret this result as normal/abnor mal. MCHC (test code = 786-4) 30.9 See_Comment L [A utomated message] The system Sav[employer] generated this result transmitted ref erence range: [...] See_Comment [Aut omated message] 777-3) The system [employer] generated this result transmitted ref erence range: 150 - 45 0 K/CU MM. The referen ce range was not u sed to interpret this result as normal/abnor mal. MPV (test code = 9.3 fL 9.4-12.3 L 96165-4) nRBC (test code = 413) 0 See_Comment [Aut omated message] The system Sav[employer]Sw[employer] generated this result transmitted ref erence range: 0 - 0 /1 00 WBC. The refere nce range was not u sed to interpret this result as normal/abnor mal. Lab Interpretation (test Abnormal code = 96901-8) [facility] (HEMOGRAM ONLY)2021-03-10 05:10:00 Test Item Value [...] 0-0 (BEAKER) (test code = 413) POCT-GLUCOSE [id number] 00:05:00 Test Item Value Reference Range Interpretation Comments POC-GLUCOSE METER 83 mg/dL 70-110 : TESTED A T [facility] ([facility]) (test code = FORTUNATO Kaba [place], 1538) 15553: Plug Cutting Machine Operator/Techni aldo ID = [id number] for BRENDA VENCES SARS-COV2/RT-PCR ([facility])2021-03-09 23:58:00 Test Item Value Reference Range Interpretation Comments SARS-COV2/RT-PCR (test Negative Not Detected, Negative, code = 0834066) See external report for linked test SARS-COV-[address] [facility] SHIV (test code = 2741764) Negative result for this test determines that [...] 564(g) of the Act.Fact Sheet for Healthcare Providers:https://www.[employer].com/sites/default/files/product/documents/Fact_Shee z_PN_Qwtleryzb_Wqlx_IRAH-EgK-3.pdfFact Sheet for Healthcare Patients:https://www.[employer].com/sites/default/files/product/ documents/Phvd_Zfvve_Jsboopea_Egdx_XCIB-HgG-1.pdfPerforming Laboratory:[facility], [place] [address]MDJT-HVTGXIE METER 2021-03-09 17:34:00 Test Item Value Reference Range Interpretation Comments POC-GLUCOSE METER 97 mg/dL 70-110 : TESTED A T [facility] ([facility]) (test code = FORTUNATO Kaba [facility], 1538) [address]: Plug Cutting Machine Operator/Techni aldo ID = [id number] for ALBINO ROSS MR, ABDOMEN, [id number] 17:11:00Unlisted Reason for Exam - Click Yes and Enter Reason Below->NoPatient with hyperdense material seen in distal CBD on CTA [facility] : 1950 Sex: [...] 12/29/2005 but appears chronic Signed: Ashely Aly MDRhospital for special care Verified Date/Time: 03/09/2021 17:11:18 Reading Location: [address] Transitional Reading Room MR abdomen without IV contrast [id number] 17:11:00 Interface, External Ris In - 03/09/2021 [...] Alyeport Verified Date/Time: 03/09/2021 17:11:18 Reading Location: [address] [facility] [id number] 17:11:00 Interface, External Ris In - 03/09/2021 [...] Alyeport Verified Date/Time: 03/09/2021 17:11:18 Reading Location: [facility] C013 Transitional [facility] [id number] 17:11:00 Interface, External Ris In - 03/09/2021 [...] MDReport Verified Date/Time: 03/09/2021 17:11:18 Reading Location: [address] [facility]itional [facility] [id number] 17:11:00 Interface, External Ris In - 03/09/2021 [...] Aly Verified Date/Time: 03/09/2021 17:11:18 Reading Location: [address] Transitional Reading [facility] [id number] 12:41:00 Test Item Value Reference Range Interpretation Comments POC-GLUCOSE METER 92 mg/dL 70-110 : TESTED A T [facility] (BEAKER) (test code = FORTUNATO Kaba [facility], 1538) [address]97: Plug Cutting Machine Operator/Techni aldo ID = [id number] for TEZE NO, ALBINO Urinalysis w/Microscopic + Reflex to [id number] 11:21:00 Test Item Value Reference Range Interpretation Comments Color, UA (test code Light Yellow = 5778-6) Clarity, UA (test Clear code = 5767-9) Specific Hurley, UA 1.033 1.001-1.035 (test code = 5811-5) pH, UA (test code = 5.5 5.0-8.0 5803-2) Protein, UA (test Negative Negative code = 56700-2) Glucose, UA (test Negative Negative code = 365) Ketones, UA (test Negative Negative code = 2514-8) Bilirubin, UA (test Negative Negative code = 96467-5) Blood, UA (test code Trace Negative A = 50569-3) Nitrite, UA (test Negative Negative code = 5802-4) Leukocytes, UA (test Negative Negative code = 5799-2) Urobilinogen, UA 0.2 mg/dL 0.2-1 (test code = 56592-1) RBC, UA (test code = 2 See_Comment [Autom ated 74067-4) message] The system which generated this result [...] Bacteria, UA (test None Seen code = 02274-9) Mucus (test code = Rare 8247-9) Squam Epithel, UA 1 See_Comment [Automate d (test code = 40636-4) messag e] The system which generated this result transmit lane reference range : /HPF. The reference range was not used to interpret this result as normal/abnormal . Crystals, Urine (test None Seen code = 85999-9) Specimen Source (test code = 2795) TORRES (test code = TORRES) Plug Cutting Machine Operator ID - [auto]Plug Cutting Machine Operator ID - tech Lab Interpretation Abnormal (test code = 80339-6) [facility] Reflex to Culture 2021-03-09 11:21:00 Test Item Value Reference Range Interpretation Comments Color, UA (test code Light Yellow = 5778-6) Clarity, UA (test Clear code = 5767-9) Specific Hurley, UA 1.033 1.001-1.035 (test code = 5811-5) pH, UA (test code = 5.5 5.0-8.0 5803-2) Protein, UA (test Negative Negative code = 61660-3) Glucose, UA (test Negative Negative code = 365) Ketones, UA (test Negative Negative code = 2514-8) Bilirubin, UA (test Negative Negative code = 82748-7) Blood, UA (test code Trace Negative A = 44788-3) Nitrite, UA (test Negative Negative code = 5802-4) Leukocytes, UA (test Negative Negative code = 5799-2) Urobilinogen, UA 0.2 mg/dL 0.2-1 (test code = 08132-1) RBC, UA (test code = 2 See_Comment [Autom ated 91457-9) message] The system which generated this result [...] Bacteria, UA (test None Seen code = 63303-8) Mucus (test code = Rare 8247-9) Squam Epithel, UA 1 See_Comment [Automate d (test code = 17245-9) messag e] The system which generated this result transmit lane reference range : /HPF. The reference range was not used to interpret this result as normal/abnormal . Crystals, Urine (test None Seen code = 84422-5) Specimen Source (test code = 2795) TORRES (test code = TORRES) Plug Cutting Machine Operator ID - [auto]Plug Cutting Machine Operator ID - tech Lab Interpretation Abnormal (test code = 72473-5) [facility]/Microscopic + Reflex to Culture 2021-03-09 11:21:00 Test Item Value Reference Range Interpretation Comments Color, UA (test code Light Yellow = 5778-6) Clarity, UA (test Clear code = 5767-9) Specific Hurley, UA 1.033 1.001-1.035 (test code = 5811-5) pH, UA (test code = 5.5 5.0-8.0 5803-2) Protein, UA (test Negative Negative code = 81702-3) Glucose, UA (test Negative Negative code = 365) Ketones, UA (test Negative Negative code = 2514-8) Bilirubin, UA (test Negative Negative code = 78557-9) Blood, UA (test code Trace Negative A = 72692-0) Nitrite, UA (test Negative Negative code = 5802-4) Leukocytes, UA (test Negative Negative code = 5799-2) Urobilinogen, UA 0.2 mg/dL 0.2-1 (test code = 59674-7) RBC, UA (test code = 2 See_Comment [Autom ated 44887-4) message] The system which generated this result [...] Bacteria, UA (test None Seen code = 81353-1) Mucus (test code = Rare 8247-9) Squam Epithel, UA 1 See_Comment [Automate d (test code = 11661-1) messag e] The system which generated this result transmit lane reference range : /HPF. The reference range was not used to interpret this result as normal/abnormal . Crystals, Urine (test None Seen code = 87999-7) Specimen Source (test code = 2795) TORRES (test code = TORRES) Plug Cutting Machine Operator ID - [auto]Plug Cutting Machine Operator ID - tech Lab Interpretation Abnormal (test code = 96822-6) [facility]/Micro[facility]opic + Reflex to Culture 2021-03-09 11:21:00 Test Item Value Reference Range Interpretation Comments Color, UA (test code Light Yellow = 5778-6) Clarity, UA (test Clear code = 5767-9) Specific Hurley, UA 1.033 1.001-1.035 (test code = 5811-5) pH, UA (test code = 5.5 5.0-8.0 5803-2) Protein, UA (test Negative Negative code = 66994-7) Glucose, UA (test Negative Negative code = 365) Ketones, UA (test Negative Negative code = 2514-8) Bilirubin, UA (test Negative Negative code = 47870-2) Blood, UA (test code Trace Negative A = 77197-3) Nitrite, UA (test Negative Negative code = 5802-4) Leukocytes, UA (test Negative Negative code = 5799-2) Urobilinogen, UA 0.2 mg/dL 0.2-1 (test code = 84151-1) RBC, UA (test code = 2 See_Comment [Autom ated 86267-7) message] The system which generated this result [...] Bacteria, UA (test None Seen code = 88221-8) Mucus (test code = Rare 8247-9) Squam Epithel, UA 1 See_Comment [Automate d (test code = 29763-3) messag e] The system which generated this result transmit lane reference range : /HPF. The reference range was not used to interpret this result as normal/abnormal . Crystals, Urine (test None Seen code = 50150-9) Specimen Source (test code = 2795) TORRES (test code = TORRES) Plug Cutting Machine Operator ID - [auto]Plug Cutting Machine Operator ID - tech Lab Interpretation Abnormal (test code = 38557-6) [facility]FLEX URINE [id number] 11:21:00 Test Item Value Reference Range Interpretation [...] = 1521) SOURCE(BEAKER) (test code = 2795) Plug Cutting Machine Operator ID - [auto]Plug Cutting Machine Operator ID - techHEMOGLOBIN [id number] 10:22:00 Test Item Value Reference Range Interpretation Comments HEMOGLOBIN A1C (BEAKER) (test code = 6.1 % 4.3-6.1 368) [id number] 06:48:00 Test Item Value Reference Range Interpretation Comments Magnesium (test code = 2.1 mg/dL 1.6-2.6 21743-3) TORRES (test code = TORRES) Plug Cutting Machine Operator ID - ELVIN W Lab Interpretation (test Normal code = 19620-0) [facility]21-[facility] 06:48:00 Test Item Value Reference Range Interpretation Comments Magnesium (test code = 2.1 mg/dL 1.6-2.6 45538-9) TORRES (test code = TORRES) Plug Cutting Machine Operator ID - ELVNI W Lab Interpretation (test Normal code = 72219-0) [facility]2021-06-28 06:48:00 Test Item Value Reference Range Interpretation Comments Magnesium (test code = 2.1 mg/dL 1.6-2.6 48832-0) TORRES (test code = TORRES) Plug Cutting Machine Operator ID - ELVIN W Lab Interpretation (test Normal code = 40682-3) [facility]2021-[facility]-28 06:48:00 Test Item Value Reference Range Interpretation Comments Magnesium (test code = 2.1 mg/dL 1.6-2.6 35545-5) TORRES (test code = TORRES) Plug Cutting Machine Operator ID - ELVIN W Lab Interpretation (test Normal code = 84193-3) [facility] METABOLIC [id number] 06:48:00 Test Item Value Reference Range Interpretation [...] S NOT APPLICABLE FOR DIALYSIS PATIEN TS. Plug Cutting Machine Operator ID - ELVIN [id number] 06:48:00 Test Item Value Reference Range Interpretation Comments MAGNESIUM (BEAKER) (test code = 2.1 mg/dL 1.6-2.6 627) Plug Cutting Machine Operator ID - ELVIN WHEPATIC FUNCTION [id number] 06:48:00 Test Item Value Reference Range Interpretation [...] (test code = 30 U/L 6-55 347) Plug Cutting Machine Operator ID - ELVIN WPROTHROMBIN TIME/[id number] 06:32:00 Test Item Value Reference Range Interpretation Comments PROTIME (BEAKER) 12.9 seconds 11.9-14.2 (test code = 759) INR (BEAKER) (test 0.99 See_Comment [Automat ed message] code = 370) The system [employer] generated this result transmitted ref erence range: [...] code = 2801) MRI Brain wo contrast [id number] 16:25:00Patient Name: RIYA BLAKELY TRANDOB: 1950. Age: 67 years. Gender: Female.MR: [id number]. Location: [facility]. Provider: Hollie Osorio MD.EXAM: [...] intracranial abnormality. Mild chronicmicroangiopathic ischemic gliosis. SL: [id number]--Phnp by: Finesse Dias MDDictated Date/time: 0 02/08/18 17:31Electronically Signed by: Finesse Dias MD 02/08/1817:40FINALREPORTUnUtah [facility]iciansSELECT [facility] Brain w/wo contrast [id number] 13:39:00 Test Item Value Reference Range Interpretation Comments Brain w/wo contrast MRI Cancel Reason: Exam (test code = Brain w/wo Replaced contrast MRI) [facility]"
[2022-01-03] MEDS ORDERED: FAMOTIDINE 20 MG/2 ML VIAL IV ONE (13:01)
[2022-01-03] MEDS ORDERED: NA CHLORIDE 0.9% 1,000 ML ONE (13:01)
[2022-01-03] MEDS ORDERED: HYDROMORPHONE HCL 1 MG/ML INJ ONE (13:01)
[2022-01-03] MEDS ORDERED: DIPHENHYDRAMINE 50 MG/ML VIAL ONE (13:01)
[2022-01-03 13:47] LABS: Absolute Lymphocytes (CBC) 1.2 K/uL (0.7-4.9); Hematocrit 35.1 % (36.0-45.0); Lymphocytes % 9.8 % (15.3-44.8); RBC Red Blood Cell Count 3.84 M/uL (3.86-4.86)
[2022-01-03 14:01] LABS: Albumin 3.4 g/dL (3.4-5.0); Bilirubin Total 0.3 mg/dL (0.2-1.0); Protein, Total 7.8 g/dL (6.4-8.2)
[2022-01-03 14:14] LABS: Urine Blood Negative (Negative); Urine Glucose Negative (Negative); Urine Protein Negative (Negative)
[2022-01-03 14:23] LABS: Urine Bacteria <20 /HPF (<20); Urine RBC NONE SEEN /HPF (NONE SEEN)
--- NOTE | 2022-01-03 14:48 | ER ---
Nurse's Notes [facility] Name: Alberto Botello Age: 71 yrs Sex: Female : 1950 Arrival Date: 01/03/2022 Time: 12:18 Bed 17 Private MD: Diagnosis: Abdominal pain, Generalized Presentation: 01/03 12:30 Chief complaint: Patient's son or daughter states: Left sided abdominal pain that ww started yesterday. Coronavirus screen: Vaccine status: Client denies travel out of the [place] in the last 14 days. Ebola Screen: Patient denies travel to an Ebola-affected area in the 21 days before illness onset. Initial Sepsis Screen: Does the patient meet any 2 criteria? No. Patient's initial sepsis screen is negative. Does the patient have a suspected source of infection? No. Patient's initial sepsis screen is negative. Risk Assessment: Do you want to hurt yourself or someone else? Patient reports no desire to harm self or others. Onset of symptoms was January 02, 2022. 12:30 Method Of Arrival: Ambulatory ww 12:30 Acuity: ART 3 ww Triage Assessment: 12:32 General: Appears uncomfortable, Behavior is cooperative. Pain: Complains of pain in ww left upper quadrant and left lower quadrant. Neuro: Level of Consciousness is awake, alert, obeys commands. Cardiovascular: Patient's skin is warm and dry. Respiratory: Airway is patent Respiratory effort is labored, Respiratory pattern is tachypnea. GI: Parent/caregiver reports the patient having pain. Historical: - Allergies: 12:32 No Known Allergies; ww - PMHx: 12:32 Anxiety; Chronic pain; Diabetes - NIDDM; Hepatitis; Hypertension; Osteoporosis; ww Pancreatitis; - PSHx: 12:32 Cholecystectomy; ww - Immunization history:: Adult Immunizations up to date. - Social history:: Smoking status: Patient denies any tobacco usage or history of. - Family history:: not pertinent. Screenin:34 Abuse screen: Denies threats or abuse. Denies injuries from another. Nutritional ww screening: No deficits noted. Tuberculosis screening: No symptoms or risk factors identified. 12:35 Fall Risk IV access (20 points). Total Huffman Fall Scale indicates No Risk (0-24 pts). ll1 Assessment: 13:30 Reassessment: No changes from previously documented assessment. Patient and/or family ll1 updated on plan of care and expected duration. Pain level reassessed. Patient is alert, oriented x 3, equal unlabored respirations, skin warm/dry/pink. 14:00 GI: Bowel sounds present X 4 quads. Abd is soft and non tender X 4 quads. ll1 14:30 Reassessment: No changes from previously documented assessment. Patient and/or family ll1 updated on plan of care and expected duration. Pain level reassessed. Patient is alert, oriented x 3, equal unlabored respirations, skin warm/dry/pink. Patient states feeling better. Vital Signs: 12:30 BP 144 / 85; Pulse 104; Resp 22; Temp 98.2; Pulse Ox 96% on R/A; Weight 71.67 kg; ww Height 5 ft. 0 in. (152.40 cm); Pain 8/10; 13:37 BP 155 / 79; Pulse 89; Resp 18; Pulse Ox 96% on R/A; ll1 14:55 BP 150 / 92; Pulse 82; Resp 18; Pulse Ox 98% ; Pain 5/10; ll1 12:30 Body Mass Index 30.86 (71.67 kg, 152.40 cm) ww ED Course: 12:18 Patient arrived in ED. ds1 12:32 Triage completed. ww 12:32 Arm band placed on right wrist. ww 12:34 Bointa Go, RN is Primary Nurse. ll1 12:34 Arm band placed on Patient placed in an exam room, on a stretcher. ll1 12:34 Patient has correct armband on for positive identification. Bed in low position. Call ll1 light in reach. Side rails up X 1. Pulse ox on. NIBP on. 12:37 Diego Patterson MD is Attending Physician. ma2 13:15 Missed attempt(s): 22 gauge in right forearm. Bleeding controlled, band aid applied, ll1 catheter tip intact. 13:20 Inserted saline lock: 22 gauge in right upper arm, using aseptic technique. Blood ll1 collected. 14:55 No provider procedures requiring assistance completed. IV discontinued, intact, ll1 bleeding controlled, No redness/swelling at site. Pressure dressing applied. Administered Medications: 13:25 Drug: NS 0.9% 1000 ml Route: IV; Rate: 1 bolus; Site: right upper arm; ll1 14:54 Follow up: Response: No adverse reaction; IV Status: Completed infusion; IV Intake: ll1 1000ml 13:26 Drug: Pepcid (famotidine) 20 mg Route: IVP; Site: right upper arm; 1 14:55 Follow up: Response: No adverse reaction [facility] 13:28 Drug: Benadryl (diphenhydrAMINE) 50 mg Route: IVP; Site: right upper arm; 1 14:55 Follow up: Response: No adverse reaction; RASS: Alert and Calm (0) 1 13:29 Drug: Dilaudid (HYDROmorphone) 1 mg {Note: rass 0, pain 10/10.} Route: IVP; Site: right ll1 upper arm; 14:55 Follow up: Response: No adverse reaction; Pain is decreased; RASS: Alert and Calm (0) [facility] Intake: 14:54 IV: 1000ml; Total: 1000ml. [facility] Outcome: 14:48 Discharge ordered by . [facility] 14:55 Patient left the ED. 14:55 Discharged to home ambulatory. 1 14:55 Condition: stable 14:55 Discharge instructions given to patient, family, Instructed on discharge instructions, follow up and referral plans. Demonstrated understanding of instructions, follow-up care. Signatures: Abigail Silva ds1 Kerry Lucas RN RN Diego Patterson MD MD ma2 Bonita Go RN RN [facility] Dolores Galan RN RN
--- NOTE | 2022-01-03 14:48 | EDPHYS ---
Physician Documentation [facility] Name: Alberto Botello Age: 71 yrs Sex: Female : 1950 Arrival Date: 01/03/2022 Time: 12:18 Bed 17 Private MD: ED Physician Diego Patterson HPI: 01/03 12:53 This 71 yrs old Female presents to ER via Ambulatory with complaints of Abdominal Pain. ma2 12:53 Patient has chronic abdominal pain she sees pain management presents to ER every week ma2 for pain control, patient presents with epigastric abdominal pain which is no change from her chronic pain she request pain medication. She denies any new symptoms such as vomiting diarrhea denies any recent trauma, denies chest pain. Historical: - Allergies: 12:32 No Known Allergies; ww - PMHx: 12:32 Anxiety; Chronic pain; Diabetes - NIDDM; Hepatitis; Hypertension; Osteoporosis; ww Pancreatitis; - PSHx: 12:32 Cholecystectomy; ww - Immunization history:: Adult Immunizations up to date. - Social history:: Smoking status: Patient denies any tobacco usage or history of. - Family history:: not pertinent. ROS: 12:53 Constitutional: Negative for fever, chills, and weight loss. ma2 12:53 All other systems are negative. Exam: 12:53 Constitutional: This is a well developed, well nourished patient who is awake, alert, ma2 and in no acute distress. Neck: Trachea midline, no thyromegaly or masses palpated, and no cervical lymphadenopathy. Supple, full range of motion without nuchal rigidity, or vertebral point tenderness. No Meningismus. Chest/axilla: Normal chest wall appearance and motion. Nontender with no deformity. No lesions are appreciated. Cardiovascular: Regular rate and rhythm with a normal S1 and S2. No gallops, murmurs, or rubs. Normal PMI, no JVD. No pulse deficits. Respiratory: Lungs have equal breath sounds bilaterally, clear to auscultation and percussion. No rales, rhonchi or wheezes noted. No increased work of breathing, no retractions or nasal flaring. Abdomen/GI: Soft, non-tender, with normal bowel sounds. No distension or tympany. No guarding or rebound. No evidence of tenderness throughout. Back: No spinal tenderness. No costovertebral tenderness. Full range of motion. MS/ Extremity: Pulses equal, no cyanosis. Neurovascular intact. Full, normal range of motion. Neuro: Awake and alert, GCS 15, oriented to person, place, time, and situation. Cranial nerves II-XII grossly intact. Motor strength 5/5 in all extremities. Sensory grossly intact. Cerebellar exam normal. Normal gait. Vital Signs: 12:30 BP 144 / 85; Pulse 104; Resp 22; Temp 98.2; Pulse Ox 96% on R/A; Weight 71.67 kg; ww Height 5 ft. 0 in. (152.40 cm); Pain 8/10; 13:37 BP 155 / 79; Pulse 89; Resp 18; Pulse Ox 96% on R/A; ll1 14:55 BP 150 / 92; Pulse 82; Resp 18; Pulse Ox 98% ; Pain 5/10; ll1 12:30 Body Mass Index 30.86 (71.67 kg, 152.40 cm) ww MDM: 12:46 Patient medically screened. [facility] 12:53 Differential diagnosis: gastritis, Irritable bowel syndrome, urinary tract infection. [facility] 12:56 Data reviewed: vital signs, nurses notes. Counseling: I had a detailed discussion with [facility] the patient and/or guardian regarding: the historical points, exam findings, and any diagnostic results supporting the discharge/admit diagnosis, the presence of at least one elevated blood pressure reading (>120/80) during this emergency department visit, the need for outpatient follow up. Response to treatment: the patient's symptoms have markedly improved after treatment. 14:44 ED course: WBC count is at upper normal limits 12,000's, which is a baseline compared [facility] to prior results. of note, patient had noncritical CT abdomen pelvis done 6 days ago. Report shows noncritical. According to patient pain is unchanged from last visit, patient is no change from her chronic pain which she experienced every few days. Risk of radiation outweigh benefit at this time. Discussed this decision with the patient and she agree. Family member at bedside who translate they all agree that they will return to ER for any worsening of symptoms, and that we are not doing any imaging at this time, which means if she develops fever she needs to come to ER immediately, if pain get worse come to the ER immediately. Patient articulated understanding.. 01/03 12:44 Order name: CBC with Diff ga2 01/03 12:44 Order name: CMP; Complete Time: 14:42 ga2 01/03 12:44 Order name: Lipase; Complete Time: 14:42 ga2 01/03 12:44 Order name: Urine Microscopic Only; Complete Time: 14:42 ga2 01/03 13:52 Order name: Manual Differential [facility] 01/03 14:14 Order name: Urine Dipstick-Ancillary; Complete Time: 14:42 EDMS 01/03 12:44 Order name: IV Saline Lock; Complete Time: 12:45 ma2 01/03 12:44 Order name: Labs collected and sent; Complete Time: 12:45 ga2 01/03 12:44 Order name: Urine Dipstick-Ancillary (obtain specimen); Complete Time: 14:55 ga2 Administered Medications: 13:25 Drug: NS 0.9% 1000 ml Route: IV; Rate: 1 bolus; Site: right upper arm; 1 14:54 Follow up: Response: No adverse reaction; IV Status: Completed infusion; IV Intake: ll1 1000ml 13:26 Drug: Pepcid (famotidine) 20 mg Route: IVP; Site: right upper arm; 1 14:55 Follow up: Response: No adverse reaction [facility] 13:28 Drug: Benadryl (diphenhydrAMINE) 50 mg Route: IVP; Site: right upper arm; 1 14:55 Follow up: Response: No adverse reaction; RASS: Alert and Calm (0) [facility] 13:29 Drug: Dilaudid (HYDROmorphone) 1 mg {Note: rass 0, pain 10/10.} Route: IVP; Site: right ll1 upper arm; 14:55 Follow up: Response: No adverse reaction; Pain is decreased; RASS: Alert and Calm (0) 1 Disposition Summary: 01/03/22 14:48 Discharge Ordered Location: Home ma2 Condition: Stable ma2 Diagnosis - Abdominal pain, Generalized ma2 Followup: ma2 - With: Private Physician - When: Tomorrow - Reason: Wound Recheck, If symptoms return Discharge Instructions: - Discharge Summary Sheet ma2 - Abdominal Pain, Adult ma2 Forms: - Medication Reconciliation Form ma2 - Thank You Letter ma2 - Antibiotic Education ma2 - Prescription Opioid Use ma2 Signatures: Dispatcher [employer] EDMS Diego Patterson MD MD ma2 Bonita Go RN RN ll1 Dolores Galan RN RN ww Corrections: (The following items were deleted from the chart) 14:27 12:49 Abdomen ordered. [facility] EDMS
[2022-01-03 15:02] VITALS: BP 155/79; TEMP 98.2; O2SAT 96
[2022-01-03 16:18] LABS: Blood Morphology Comment NOT SEEN (NOT SEEN); Platelet Estimate ADEQ
== END 2022-01-03 14:55 | disposition home or self-care (01) ==
LOC: ER 12:17
DX: R10.84 Generalized abdominal pain (principal); G89.29 Other chronic pain; E11.9 Type 2 diabetes mellitus without complications; I10 Essential (primary) hypertension
CPT/HCPCS: 96361; 85025; 36415; 83690; 80053; 96375; 96374; 99284; J1200; J1170; J7030; J3490; 81003; 81015

== ENCOUNTER 2022-01-11 12:15 | Emergency (ER) | payer OTHER ==
--- OUTSIDE RECORDS SUMMARY | 2022-01-11 12:27 | XMS REPORT | Continuity of Care Document ---
:1950 Author Organization [facility] t Address [address] [place] [address] Care Team Providers Name Role Phone ALEJANDRA, [...] Expiration Date Brandy haywood MEDICARE A B [id number] 2021 00:00:00 MEDICAID OF [place] [id number] MEDICARE PART A [id number] \\T\\ B - [facility] - [id number] MEDICAID MEDICARE PART A [id number] 2003 \\T\\ B 00:00:00 [place] [id number] 2013 00:00:00 Problems Condition Condition Condition Status [...] first 00:00: [place] lumbar lumbar 00 [facility] vertebra vertebra Branch with with routine routine healing healing Hypertensi Hypertensi Disease Active C HI St on on [facility] Diabetes Diabetes Disease Active [facility] S t mellitus mellitus [facility] New onset New onset Problem [...] NO KNOWN Allergy Active [facility] NO KNOWN Drug Active Univers ALLERGIE Class ity of S [facility] Family History Family Member Diagnosis Comments Start Date Stop Date Source Father Family history of Univers ity of [place] lung cancer Physicians Social History Social Habit Start Date Stop Date Quantity Comments Source Exposure to Not sure [facility] SARS-CoV-2 (event) Medica l Branch Tobacco use and 2021-05-07 2021-05-[address] [facility] - exposure 00:00:00 00:00:00 Medical Center Alcohol intake 2016-03-18 2016-03-18 0 /d [facility] 00:00:00 00:00:00 Medical Branch Sex Assigned At [birth year] [facility] 00:00:00 00:00:00 Medical Branch Smoking Status Start Date Stop Date Source Never smoker [facility] Medications Ordered Filled Start Stop Current Ordering Indication Dosage Frequency Signature Comments Components Source Medication Medication Date Date Medication? Clinician (SIG) Name Name iopamidol 2020-09- No [id number] 100mL 100 mL, Univers (ISOVUE 09-23 Intravenou ity o f 370-500 mL) 17:55: 17:55 s, ONCE, 1 [place] injection 00 :00 dose, On Medica l 100 mL Tue [place] 07/24/21 at 1215, Routine ondansetron 2020-09- No 4mg 4 mg, Slow Univers (ZOFRAN 09-23 IV Push, ity of (PF)) 17:45: 16:38 ONCE, 1 [place] injection 4 00 :00 dose, On Medi josephine mg Tue [place] 07/24/21 at 1145, Routine morpHINE 2020-09 Yes 4mg 4 mg, Slow Uni vers injection 4 09-23 IV Push, ity of mg 16:30: Q4HPRN, [place] 24 Starting Medical on Tue [place] 07/24/21 at 1030, Until Discontinu ed, Routine, [...] MCG 10:59: mouth Medical capsule 53 daily. Julian alendronate Yes 70mg Take [address] (FOSAMAX) 8-26 by mouth [facility] - 70 MG 10:59: every 7 Medical tablet 53 days Take Center in the morning with a full glass of water, on an empty stomach, and do not take anything else by mouth or lie down for the next 30 min. . HYDROcodone Yes 1{tbl} Q.06025890 Take [address] -acetaminop 8-26 [id number] tablet by [facility] - hen (NORCO 10:59: [...] next 30 min. . HYDROcodone Yes 1{tbl} Q.96631346 Take [address] -acetaminop 8-26 [id number] tablet by [facility]ukes - hen (NORCO 10:59: 3D mouth 3 Medi josephine 5-325) 53 (three) Center 5-325 mg times per tablet daily. ursodioL Yes 500mg QD Take [address] (ACTIGALL) 8-26 mg by [facility]ukes - 500 MG 10:59: mouth Medical tablet 53 daily. Julian ALPRAZolam Yes 2mg Take 2 mg CH [...] MCG 10:59: mouth Medical capsule 53 daily. Julian alendronate Yes 70mg Take [address] (FOSAMAX) 8-26 by mouth [facility] - 70 MG 10:59: every 7 Medical tablet 53 days Take Center in the morning with a full glass of water, on an empty stomach, and do not take anything else by mouth or lie down for the next 30 min. . HYDROcodone Yes 1{tbl} Q.22833329 Take [address] -acetaminop 8-26 [id number] tablet by [facility] - hen (NORCO 10:59: 3D mouth 3 Medi josephine 5-325) 53 (three) Center 5-325 mg times per tablet daily. ursodioL Yes 500mg QD Take [address] (ACTIGALL) 8-26 mg by [facility]ukes - 500 MG 10:59: mouth Medical tablet 53 daily. Julian ALPRAZolam Yes 2mg Take 2 mg CH [...] next 30 min. . HYDROcodone Yes 1{tbl} Q.28745088 Take [address] -acetaminop 8-26 [id number] tablet by [facility] - hen (NORCO 09:40: 3D mouth 3 Medi josephine 5-325) 47 (three) Center 5-325 mg times per tablet daily. ursodioL Yes 500mg QD Take [address] (ACTIGALL) 8-26 mg by [facility]ukes - 500 MG 09:40: mouth Medical tablet 47 daily. Center meclizine Yes [facility] (ANTIVERT) 6-21 [facility] - 25 mg 00:00: Medical tablet 00 Julian meclizine Yes [facility] (ANTIVERT) 6-21 [facility] - 25 mg 00:00: Medical tablet 00 Center meclizine Yes [facility] (ANTIVERT) 6-21 [facility] - 25 mg 00:00: Medical tablet 00 Julian meclizine Yes [facility] (ANTIVERT) 6-21 [facility] - 25 mg 00:00: Medical tablet 00 Julian Nortriptyli Nortriptyli Yes HOLLIE TAKE 1 Univers [...] i ty of Tablet Tablet 00:00: TWICE [place] 00 DAILY. Physici ans MetFORMIN MetFORMIN Yes [...] ity of mg 24 hr 08:12: daily. [place] capsule 18 Medical Branch ALPRAZolam Yes 2mg [...] Completed Unive rsity of PFIZER VACCINE 00:00:00 [facility] SARS-COV-2 COVID-19 2020-10-21 Completed Unive rsity of PFIZER VACCINE 00:00:00 [facility] Vital Signs Vital Name Observation Time Observation Value Comments Source WEIGHT 2021-03-10 62.596 kg 11:08:00 Systolic blood 2021-07-24 144 mm[Hg] University of pressure 19:28:00 [facility] Diastolic blood 2021-07-24 90 mm[Hg] [facility] pressure 19:28:00 [facility] Heart rate 2021-07-24 87 /min [facility] 19:28:00 [facility] Respiratory rate 2021-07-24 18 /min [facility] 19:28:00 [facility] Oxygen saturation 2021-07-24 97 /min [facility] in Arterial blood 19:28:00 [facility] by Pulse oximetry [place] Body temperature 2021-07-24 37 Carolann [facility] 16:20:00 [facility] Body weight 2021-07-24 61.236 kg University 16:20:00 [facility] BMI 2021-07-24 25.51 kg/m2 [facility] 16:20:00 [facility] HEIGHT 2021-05-04 152.4 cm 17:29:00 WEIGHT 2021-05-04 61.689 kg 17:29:00 HEIGHT 2021-05-04 152.4 cm 17:29:00 WEIGHT 2021-05-04 61.689 kg 17:29:00 WEIGHT 2021-03-10 62.596 kg 11:08:00 Systolic blood 2021-05-07 156 mm[Hg] [facility] - pressure 08:00:00 Medical Julian Diastolic blood 2021-05-07 74 mm[Hg] [facility] - pressure 08:00:00 Medical Center Heart rate 2021-05-07 76 /min [facility] - 08:[facility] Medical Center Body temperature 2021-05-[address] [facility] - 08:00:00 Medical Center Respiratory rate 2021-05-07 17 /min [facility] - 08:00:00 Medical Center Oxygen saturation 2021-05-07 97 /min [facility] St Sujata es - in Arterial blood 08:00:00 Medical nter by Pulse oximetry Body height 2021-05-[address] [facility] - 17:29:00 [facility] Body weight 2021-05-[address] [facility] - 17:29:00 [facility] BMI 2021-05-04 26.56 kg/m2 [facility] - 17:29:00 [facility] BP Systolic 2018-02-01 131 mm[Hg] [facility] 08:36:00 Position: [place] Physician s Sitting BP Diastolic 2018-02-01 78 mm[Hg] [facility] 08:36:00 Position: [place] Physician s Sitting Height 2018-02-01 60 [in_us] [facility] 08:36:00 [place] Physician s Weight 2018-02-01 117 [lb_av] [facility] 08:36:00 [place] Physician s Body Mass Index 2018-02-01 22.85 kg/m2 [facility] Calculated 08:36:00 [place] Physician s Heart Rate 2018-02-01 73 /min Location: [facility] 08:36:00 Brachial [place] Physician s Artery; Procedures Procedure Date / Time Performing Clinician Source Performed CT ABDOMEN PELVIS W 2021-07-24 18:00:55 Glenn Fu [facility] CONTRAST Medical Branch URINALYSIS 2021-07-24 17:39:00 Singer Glenn [facility] Branch LIPASE 2021-07-24 16:33:[address] [facility] COMP. METABOLIC PANEL 2021-07-24 16:33:00 [id number] Medical Branch CBC WITH DIFF 2021-07-24 16:33:[address] [facility] NOTICE OF PRIVACY 2021-07-24 16:11:11 Doctor Unassigned, [facility] PRACTICES [place] [facility] REPORT OF PROCEDURE - 2021-05-06 16:07:30 Juan Alberto Shelton [facility] ENDOSCOPY [facility] ERCP,DIRECT VISUALIZATION 2021-05-06 15:00:00 Juan Alberto Shelton [facility] PROCEDURE W/ C-ARM 2021-05-06 15:00:00 Juan Alberto Shelton [facility] ERCP,BALLOON SWEEPING 2021-05-06 15:00:00 Juan Alberto Shelton [facility] CBC W/PLT COUNT & AUTO 2021-05-06 05:51:00 [facility] BASIC METABOLIC PANEL (7) 2021-05-06 05:51:00 [facility] HEPATIC FUNCTION PANEL 2021-05-06 05:51:00 Stephmo [facility] ABORH, MANUAL 2021-05-05 05:07:00 Zunilda Rubin [facility] TYPE AND SCREEN, 2021-05-05 04:14:00 Roxie [facility] PROTHROMBIN TIME/INR 2021-05-05 04:14:00 [facility] SARS-COV2/RT-PCR ([facility] & 2021-05-05 00:18:00 Britney Lloyd [facility] - REF LABS) [facility] BLOOD GAS, VENOUS 2021-05-05 00:14:00 [facility] KETONE, BLOOD 2021-05-05 00:14:00 [facility] HIGH SENSITIVITY TROPONIN 2021-05-05 00:14:00 Roxie [facility] ED ECG INTERPRETATION 2021-05-04 23:15:17 [facility] BASIC METABOLIC PANEL (7) 2021-05-04 21:30:00 Cherie Faustin [facility] HEPATIC FUNCTION PANEL 2021-05-04 21:30:00 Cherie Faustin [facility] AMYLASE 2021-05-04 21:30:00 Roxie [facility] LIPASE 2021-05-04 21:30:00 Roxie [facility] CBC W/PLT COUNT & AUTO 2021-05-04 19:37:00 Roxie [facility] ECG 12-LEAD 2021-05-04 19:22:33 Unknown, Hl7 Doctor [facility] POCT-GLUCOSE METER 2021-03-11 08:21:00 Jessica Boone [facility] COMPREHENSIVE METABOLIC 2021-03-11 06:09:[address] [facility] REPORT OF PROCEDURE - 2021-03-10 23:43:51 Allen Chavez [facility] - ENDOSCOPY [facility] POCT-GLUCOSE METER 2021-03-10 16:43:00 Jessica Boone [facility] POCT-GLUCOSE METER 2021-03-10 12:45:00 Jessica Boone [facility] [place] ERCP 2021-03-10 12:02:00 Desiree Duggan [facility] ERCP,PAPILLOTOMY 2021-03-10 11:31:00 [facility] PROCEDURE W/ C-ARM 2021-03-10 11:31:00 Kathy [facility] ERCP,BALLOON SWEEPING 2021-03-10 11:31:00 Kathy [facility] POCT-GLUCOSE METER 2021-03-10 09:07:00 Berna Boonecharly [facility] CBC (HEMOGRAM ONLY) 2021-03-10 04:50:00 [facility] COMPREHENSIVE METABOLIC 2021-03-10 04:50:00 [facility] HEMOGLOBIN A1C 2021-03-10 04:50:00 [facility] POCT-GLUCOSE METER 2021-03-09 23:54:00 [facility] SARS-COV2/RT-PCR ([facility] & 2021-03-09 20:13:00 Desiree Duggan [facility] - REF LABS) [facility] POCT-GLUCOSE METER 2021-03-09 17:22:00 [facility] MR ABDOMEN WITHOUT IV 2021-03-09 15:38:00 [facility] CONTRAST MRCP [facility] POCT-GLUCOSE METER 2021-03-09 12:22:00 [facility] URINALYSIS W/ REFLEX 2021-03-09 10:56:00 [facility] URINE CULTURE [facility] HEPATIC FUNCTION PANEL 2021-03-09 05:25:00 [facility] PROTHROMBIN TIME/INR 2021-03-09 05:25:00 [facility] MAGNESIUM 2021-03-09 05:25:00 [facility] BASIC METABOLIC PANEL (7) 2021-03-09 05:25:00 [facility] CBC W/PLT COUNT & AUTO 2021-03-09 05:25:00 [facility] DIFFERENTIAL [facility] HEMOGLOBIN A1C 2021-03-09 05:25:00 [facility] MRI Brain wo contrast 2018-02-08 00:00:00 [facility] [address] Physicians MRI Brain w/wo contrast 2018-02-01 00:00:00 [facility] [address] Physicians [facility] Plan of Care Planned Activity Planned Date Details Comments Source Future Scheduled 2021-09-[address] [facility] - Test 00:00:00 measurement Medical Center (procedure) [code = 96079457] Future Scheduled 2021-09-[address] [facility] - Test 00:00:00 measurement Medical Center (procedure) [code = 40684654] Future Scheduled 2021-09-[address] [facility] - Test 00:00:00 measurement Medical Center (procedure) [code = 40538847] Future Scheduled 2021-09-[address] [facility] - Test 00:00:00 measurement Medical Center (procedure) [code = 97749696] Future Scheduled 2021-05-13 INFLUENZA VACCINE (#1) C [...] [facility] - Test 00:00:00 ([address] [place] [address] [id number] PCV13) [code = PNEUMOCOCCAL 65+ YRS (1 of 1 - TERD63_Fsjpuqg PCV13)] Future Scheduled 2013 PNEUMOCOCCAL 65+ YRS [facility] - Test 00:00:00 ([address] [place] [address] Center AATC52_Sapahyg PCV13) [code = PNEUMOCOCCAL 65+ YRS (1 of 1 - JPSG53_Uhjorgo PCV13)] Future Scheduled 2013 PNEUMOCOCCAL 65+ Y[facility] - Test 00:00:00 ([address] [place] [address] JMHJ27_Kwqwoag PCV13) [code = PNEUMOCOCCAL 65+ YRS (1 of 1 - XXST28_Dhpvwrq PCV13)] Future Scheduled 2013 PNEUMOCOCCAL 65+ YRS [facility] - Test 00:00:00 (1 of 1 - Medical Center ZSQO67_Lzunozm PCV13) [code = PNEUMOCOCCAL 65+ YRS (1 of 1 - SWWN61_Joaxxfp PCV13)] Future Scheduled 2004-10-14 MEDICARE ANNUAL CHI [...] 00:00:00 examination Medical Center (regime/therapy) [code = 940292291] Future Scheduled 1958 Urine screening [facility] Test 00:00:00 protein (procedure) Medical Center [code = 880805516] Future Scheduled 1960 DIABETIC EYE EXAM [facility] - Test 00:00:00 [code = DIABETIC EYE Medical Center EXAM] Future Scheduled [address] [facility] - Test 00:00:00 examination Medical Center (regime/therapy) [code = 664536802] Future Scheduled 1958 Urine screening [facility] Test 00:00:00 protein (procedure) Medical Center [code = 759095206] Future Scheduled 1960 DIABETIC EYE EXAM [facility] Test 00:00:00 [code = DIABETIC EYE Medical Center EXAM] Future Scheduled [address] [facility] - Test 00:00:00 examination Medical Center (regime/therapy) [code = 995783572] Future Scheduled 1958 Urine screening [facility] Test 00:00:00 protein (procedure) Medical Center [code = 912294825] Future Scheduled 1960 DIABETIC EYE EXAM [facility] Test 00:00:00 [code = DIABETIC EYE Medical Center EXAM] Future Scheduled [address] [facility] - Test 00:00:00 examination Medical Center (regime/therapy) [code = 566042501] Future Scheduled 1958 Urine screening [facility] Test 00:00:00 protein (procedure) Medical Center [code = 014184268] Future Scheduled [address] [facility] [facility] - Test 00:00:00 malignant neoplasm of Medica l Center breast (procedure) [code = 466441702] Future Scheduled [address] [facility] - Test 00:00:00 malignant neoplasm of Medica l Center colon (procedure) [code = 308306324] Future Scheduled [address] [facility] - Test 00:00:00 malignant neoplasm of Medica l Center breast (procedure) [code = 930810521] Future Scheduled [address] [facility] - Test 00:00:00 malignant neoplasm of Medica l Center colon (procedure) [code = 514597175] Future Scheduled [address] [facility] - Test 00:00:00 malignant neoplasm of Medica l Center breast (procedure) [code = 284121095] Future Scheduled [address] [facility] - Test 00:00:00 malignant neoplasm of Medica l Center colon (procedure) [code = 557906263] Future Scheduled [address] [facility] - Test 00:00:00 malignant neoplasm of Medica l Center breast (procedure) [code = 071105810] Future Scheduled [address] [facility] - Test 00:00:00 malignant neoplasm of Medica l Center colon (procedure) [code = 437002285] Encounters Start End Encounter Admission Attending Care Care Encounter Source Date/Time Date/Time Type Type Clinicians Facility Department ID 2021-06-21 Inpatient ER TERESA BURNETT Gastro [id number] [facility] 02:39:12 [place] 2021-08-10 2021-08-10 Outpatient MCKAY SUYAPA [facility] [id number] [facility] 10:38:01 17:18:04 LEV Bermudezg e of Medicin e 2021-07-24 2021-07-24 Emergency X [facility] ERT [id number] Univers 10:12:00 14:31:00 GLENN gail [facility] 2021-07-24 2021-07-24 Emergency [facility] [id number] Univers 10:12:00 14:31:00 Glenn DONATO [id number] i ty [facility] [id number] [facility] [id number] [place] [address] Branch 2021-05-04 2021-05-07 Hospital ER Cherie Faustin [facility] [id number] 17:37:00 10:59:00 [facility] 2021-05-06 2021-05-06 Anesthesia Denise Quispe [facility] [id number] 15:10:00 16:27:[address] [facility] 2021-05-06 2021-05-06 Surgery Nikita [facility] [id number] 13:00:00 14:30:00 [facility] 2021-05-05 2021-05-05 Travel [facility] [id number] [facility] 00:[facility]00 00:[facility]:00 [facility] 2021-05-04 2021-05-04 Outpatient [facility] [id number] [facility] 00:00:00 23:59:00 [facility] 2021-05-04 2021-05-04 Emergency ER [facility] Emergency [id number] [facility] 17:24:00 17:24:00 2021-05-04 2021-05-04 Orders [facility] [id number] 00:00:00 00:00:[address] [facility] 2021-05-04 2021-05-04 Travel [facility] [id number] [facility] 00:[facility]00 00:[facility]:00 [facility] 2021-05-01 2021-05-01 Emergency E EVANGELINA[id number] 16:21:00 22:56:00 [place] 2021-03-13 2021-03-13 Telephone Ezequiel, [facility] [id number] 00:00:00 00:00:00 [facility] 2021-03-08 2021-03-11 [facility] Curtis BurnettKenrick [facility] [id number] 23:13:00 11:35:00 Encounter Bret Schuster [facility] 2021-03-10 2021-03-10 [facility] [id number] 11:00:00 12:30:00 [facility] 2021-03-10 2021-03-10 Anesthesia Bahena, [facility] [id number] 11:36:00 12:27:00 Event Graciela jessica Colón [facility] 2018-02-01 2018-02-01 AppointBRENDAN Hussein Neurology [id number] Univers 08:00:00 08:00:00 HOLLIE Adair ity of CHRISTINA, M.D. [place] M.D. Physici ans Results Test Description Test Time Test Comments Results Result Comments Source COMP. METABOLIC PANEL (36086) 2021-07-24 17:14:29 Test Item Value Reference Range Interpretation Comme nts NA (test code = 5248922088) 139 mmol/L 135-145 K (test code = 9982002534) 4.3 mmol/L 3.5-5.0 CL (test code = 1411976427) 104 mmol/L 98-108 CO2 TOTAL (test code = 0232850281) 24 mmol/L 23-31 AGAP (test code = 1410238860) 2-16 BUN (test code = 9871375491) 18 mg/dL 7-23 GLUCOSE (test code = 9097140120) 104 mg/dL 70-110 CREATININE (test code = 1.39 mg/dL 0.50-1.04 H 3753540260) TOTAL BILI (test code = 0.4 mg/dL 0.1-1.8 3008701879) CALCIUM (test code = 0941485219) 9.6 mg/dL 8.6-10.6 T PROTEIN (test code = 4654463791) 8.4 g/dL 6.3-8.2 H ALBUMIN (test code = 9692798104) 4.6 g/dL 3.5-5.0 ALK PHOS (test code = 8892656458) 93 U/L 34-122 ALTv (test code = 1742-6) 44 U/L 5-35 H AST(SGOT) (test code = 5690598810) 48 U/L 13-40 H eGFR (test code = 1946057169) mL/min/1.73m2 TORRES (test code = TORRES) Association [...] tests). Lab Interpretation (test code = Abnormal 91933-3) [facility] 17:13:49 Test Item Value Reference Range Interpretation Comments LIPASE (test code = 2097023874) 266 U/L 0-220 H Lab Interpretation (test code = Abnormal 14667-6) [facility] WITH [id number] 17:03:27 Test Item Value Reference Range Interpretation Comments WBC (test code = See_Comment [Automated 90-2) message] The sy stem which generated this result transmitted reference range : 4.30 - 11.10 10*3/?L. The reference range was not used to interpret this result as normal/abnormal . RBC (test code = See_Comment [Automated 269-8) message] The sy stem which generated this [...] RDW-SD (test code = 48.4 fL 39.0-49.9 93728-0) RDW-CV (test code = 13.8 % 12.0-15.5 788-0) PLT (test code = See_Comment [Automated 367-3) message] The sy stem which generated this result transmitted reference range : 166 - 358 10*3/ ?L. The reference r becca was not used to interpret this result as normal/abnormal . MPV (test code = 9.1 fL 9.5-12.9 L 70390-9) NRBC/100 WBC (test See_Comment [Automat ed code = 6775801277) message] The system which generated this result transmitted reference range : 0.0 - 10.0 /100 WBCs. The refer ence range was not u sed to interpret th is result as normal/abnormal . NRBC x10^3 (test code <0.01 See_Comment [Auto mated = 0797207766) message] The s ystem which generated this result transmitted reference range : 10*3/?L. The reference range was not used to interpret this result as normal/abnormal . GRAN MAT (NEUT) % 64.8 % (test code = 770-8) IMM GRAN % (test code 0.90 % = 4200469974) LYMPH % (test code = 24.2 % 736-9) MONO % (test code = 8.2 % 5905-5) EOS % (test code = 1.4 % 713-8) BASO % (test code = 0.5 % 706-2) GRAN MAT x10^3(ANC) 5.59 10*3/uL 1.88-7.09 (test code = 1851991083) IMM GRAN x10^3 (test 0.08 10*3/uL 0.00-0.06 H code = 5242324702) LYMPH x10^3 (test code 2.09 10*3/uL 1.32-3.29 = 731-0) MONO x10^3 (test code 0.71 10*3/uL 0.33-0.92 = 742-7) EOS x10^3 (test code = 0.12 10*3/uL 0.03-0.39 711-2) BASO x10^3 (test code 0.04 10*3/uL 0.01-0.07 = 704-7) Lab Interpretation Abnormal (test code = 81213-9) [facility] [id number] 07:08:00 Test Item Value Reference Range Interpretation Comments Sodium (test code = 139 meq/L 511-743 3046-2) Potassium (test 4.1 meq/L 3.5-5.1 code = 2823-3) Chloride (test code 107 meq/L 98-107 = 2075-0) CO2 (test code = 25 meq/L 22-29 2027-9) BUN (test code = 13 mg/dL 7-21 3094-0) Creatinine (test 0.97 mg/dL 0.57-1.25 code = 2160-0) Glucose (test code 80 mg/dL 70-105 = 2345-7) Calcium (test code 8.9 mg/dL 8.4-10.2 = 57866-6) EGFR (test code = 56 mL/min/1.[address] [place] [address]-2) NOT ACCURATE CREATININE CLEARANCE IN PREDICTING GLOMERULAR FILTRATION RATE . ESTIMATED GFR I S NOT APPLICABLE FOR DIALYSIS PATIEN TORRES (test code = Data Communications Technician ID - TORRES) TOÑITO Camacho [facility] [id number] 07:08:00 Test Item Value Reference Range Interpretation Comments Protein, Total (test 6.9 See_Comment [Autom ated code = 2885-2) message] The system which generated this result transmit lane reference range : 6.0 - 8.3 gm/dL . The reference range was not u sed to interpret th is result as normal/abnormal . Albumin (test code = 3.6 g/dL 3.5-5 80228-4) Total Bilirubin (test 0.3 mg/dL 0.2-1.2 code = 1974-2) Bilirubin, Direct 0.2 mg/dL 0.1-0.5 (test code = 1967-7) Alkaline Phosphatase 56 U/L 40-150 (test code = 6768-6) AST (test code = 37 U/L 5-34 H 1920-8) ALT (test code = 50 U/L 6-55 1742-6) TORRES (test code = TORRES) Data Communications Technician ID - TOÑITO Camacho Lab Interpretation Abnormal (test code = 75708-5) [facility] [id number] 07:08:00 Test Item Value Reference Range Interpretation Comments Sodium (test code = 139 meq/L 383-698 9086-2) Potassium (test 4.1 meq/L 3.5-5.1 code = 2823-3) Chloride (test code 107 meq/L 98-107 = 2075-0) CO2 (test code = 25 meq/L 2028-05) BUN (test code = 13 mg/dL 7-21 3094-0) Creatinine (test 0.97 mg/dL 0.57-1.25 code = 2160-0) Glucose (test code 80 mg/dL 70-105 = 2345-7) Calcium (test code 8.9 mg/dL 8.4-10.2 = 20812-2) EGFR (test code = 56 mL/min/1.[address] [place] [address]-3) NOT ACCURATE CREATININE CLEARANCE IN PREDICTING GLOMERULAR FILTRATION RATE . ESTIMATED GFR I S NOT APPLICABLE FOR DIALYSIS PATIEN TORRES (test code = Data Communications Technician ID - TORRES) TOÑITO Camacho [facility] [id number] 07:08:00 Test Item Value Reference Range Interpretation Comments Protein, Total (test 6.9 See_Comment [Autom ated code = 2885-2) message] The system which generated this result transmit lane reference range : 6.0 - 8.3 gm/dL . The reference range was not u sed to interpret th is result as normal/abnormal . Albumin (test code = 3.6 g/dL 3.5-5 04868-9) Total Bilirubin (test 0.3 mg/dL 0.2-1.2 code = 1974-2) Bilirubin, Direct 0.2 mg/dL 0.1-0.5 (test code = 1968-7) Alkaline Phosphatase 56 U/L 40-150 (test code = 6768-6) AST (test code = 37 U/L 5-34 H 1920-8) ALT (test code = 50 U/L 6-55 1742-6) TORRES (test code = TORRES) Data Communications Technician ID - PIJOVANNI L Lab Interpretation Abnormal (test code = 95637-5) [facility] [id number] 07:08:00 Test Item Value Reference Range Interpretation Comments Sodium (test code = 139 meq/L 198-947 1482-2) Potassium (test 4.1 meq/L 3.5-5.1 code = 2823-3) Chloride (test code 107 meq/L 98-107 = 2075-0) CO2 (test code = 25 meq/L 22-29 2028-9) BUN (test code = 13 mg/dL 04-01 3094-0) Creatinine (test 0.97 mg/dL 0.57-1.25 code = 2160-0) Glucose (test code 80 mg/dL 70-105 = 2345-7) Calcium (test code 8.9 mg/dL 8.4-10.2 = 00954-3) EGFR (test code = 56 mL/min/1.[address] [place] [address]-4) NOT ACCURATE CREATININE CLEARANCE IN PREDICTING GLOMERULAR FILTRATION RATE . ESTIMATED GFR I S NOT APPLICABLE FOR DIALYSIS PATIEN TORRES (test code = Data Communications Technician ID - TORRES) TOÑITO Camacho [facility] [id number] 07:08:00 Test Item Value Reference Range Interpretation Comments Protein, Total (test 6.9 See_Comment [Autom ated code = 2885-2) message] The system which generated this result transmit lane reference range : 6.0 - 8.3 gm/dL . The reference range was not u sed to interpret th is result as normal/abnormal . Albumin (test code = 3.6 g/dL 3.5-5 83714-8) Total Bilirubin (test 0.3 mg/dL 0.2-1.2 code = 1975-2) Bilirubin, Direct 0.2 mg/dL 0.1-0.5 (test code = 1967-7) Alkaline Phosphatase 56 U/L 40-150 (test code = 6768-6) AST (test code = 37 U/L 5-34 H 1920-8) ALT (test code = 50 U/L 6-55 1742-6) TORRES (test code = TORRES) Data Communications Technician ID - TOÑITO Camacho Lab Interpretation Abnormal (test code = 27462-2) [facility] [id number] 07:08:00 Test Item Value Reference Range Interpretation Comments Sodium (test code = 139 meq/L 579-630 9416-2) Potassium (test 4.1 meq/L 3.5-5.1 code = 2823-3) Chloride (test code 107 meq/L 98-107 = 2075-0) CO2 (test code = 25 meq/L 22-29 8-9) BUN (test code = 13 mg/dL 04-01 3094-0) Creatinine (test 0.97 mg/dL 0.57-1.25 code = 2160-0) Glucose (test code 80 mg/dL 70-105 = 2345-7) Calcium (test code 8.9 mg/dL 8.4-10.2 = 25059-1) EGFR (test code = 56 mL/min/1.[address] [place] [address]-4) NOT ACCURATE CREATININE CLEARANCE IN PREDICTING GLOMERULAR FILTRATION RATE . ESTIMATED GFR I S NOT APPLICABLE FOR DIALYSIS PATIEN TORRES (test code = Data Communications Technician ID - TORRES) TOÑITO Camacho [facility] [id number] 07:08:00 Test Item Value Reference Range Interpretation Comments Protein, Total (test 6.9 See_Comment [Autom ated code = 2885-2) message] The system which generated this result transmit lane reference range : 6.0 - 8.3 gm/dL . The reference range was not u sed to interpret th is result as normal/abnormal . Albumin (test code = 3.6 g/dL 3.5-5 82932-8) Total Bilirubin (test 0.3 mg/dL 0.2-1.2 code = 1975-2) Bilirubin, Direct 0.2 mg/dL 0.1-0.5 (test code = 1968-7) Alkaline Phosphatase 56 U/L 40-150 (test code = 6768-6) AST (test code = 37 U/L 5-34 H 1920-8) ALT (test code = 50 U/L 6-55 1742-6) TORRES (test code = TORRES) Data Communications Technician ID - TOÑITO Camacho Lab Interpretation Abnormal (test code = 82905-3) [facility] [id number] 07:08:00 Test Item Value Reference Range Interpretation [...] S NOT APPLICABLE FOR DIALYSIS PATIEN TS. Data Communications Technician ID - PIJOVANNI LHEPATIC FUNCTION [id number] 07:08:00 Test Item Value Reference Range Interpretation [...] (test code = 50 U/L 6-55 347) Data Communications Technician ID - TOÑITO LCBC with platelet count + automated [id number] 06:01:00 Test Item Value Reference Range Interpretation Comments WBC (test code = 6690-2) 7.9 See_Comment [A utomated message] The system [employer] generated this result transmitted ref erence range: 3.5 - 10 .5 K/L. The refe rence range was not u sed to interpret this result as normal/abnor mal. RBC (test code = 789-8) 3.22 See_Comment L [Au tomated message] The system [employer] generated this result transmitted ref erence range: 3.93 - 5 .22 M/L. The refe rence range was not u sed to interpret this result as normal/abnor mal. MCHC (test code = 786-4) 31.8 See_Comment L [A utomated message] The system [employer] generated this result transmitted ref erence range: [...] See_Comment [Aut omated message] 777-3) The system [employer] generated this result transmitted ref erence range: 150 - 45 0 K/CU MM. The referen ce range was not u sed to interpret this result as normal/abnor mal. MPV (test code = 8.9 fL 9.4-12.3 L 71845-5) nRBC (test code = 413) 0 See_Comment [Aut omated message] The system [employer] generated this result transmitted ref erence range: [...] See_Comment [Aut omated message] 670) The system [employer] generated this result transmitted ref erence range: 1.56 - 6 .13 K/L. The refe rence range was not u sed to interpret this result as normal/abnor mal. # Lymphs (test code = 2.20 See_Comment [Auto mated message] 414) The system [employer] generated this result transmitted ref erence range: 1.18 - 3 .74 K/L. The refe rence range was not u sed to interpret this result as normal/abnor mal. # Monos (test code = 0.54 See_Comment H [Autom ated message] 415) The system [employer] generated this result transmitted ref erence range: 0.24 - 0 .36 K/L. The refe rence range was not u sed to interpret this result as normal/abnor mal. # Eos (test code = 416) 0.08 See_Comment [Au tomated message] The system [employer] generated this result transmitted ref erence range: 0.04 - 0 .36 K/L. The refe rence range was not u sed to interpret this result as normal/abnor mal. # Baso (test code = 417) 0.03 See_Comment [A utomated message] The system [employer] generated this result transmitted ref erence range: 0.01 - 0 .08 K/L. The refe rence range was not u sed to interpret this result as normal/abnor mal. Immature 0 % 0-1 Granulocytes-Relative (test code = 2801) Lab Interpretation (test Abnormal code = 05049-5) [facility] with platelet count + automated [id number] 06:01:00 Test Item Value Reference Range Interpretation Comments WBC (test code = 6690-2) 7.9 See_Comment [A utomated message] The system [employer] generated this result transmitted ref erence range: 3.5 - 10 .5 K/L. The refe rence range was not u sed to interpret this result as normal/abnor mal. RBC (test code = 789-8) 3.22 See_Comment L [Au tomated message] The system [employer] generated this result transmitted ref erence range: 3.93 - 5 .22 M/L. The refe rence range was not u sed to interpret this result as normal/abnor mal. MCHC (test code = 786-4) 31.8 See_Comment L [A utomated message] The system [employer] generated this result transmitted ref erence range: [...] See_Comment [Aut omated message] 777-3) The system [employer] generated this result transmitted ref erence range: 150 - 45 0 K/CU MM. The referen ce range was not u sed to interpret this result as normal/abnor mal. MPV (test code = 8.9 fL 9.4-12.3 L 66834-6) nRBC (test code = 413) 0 See_Comment [Aut omated message] The system [employer] generated this result transmitted ref erence range: [...] See_Comment [Aut omated message] 670) The system [employer] generated this result transmitted ref erence range: 1.56 - 6 .13 K/L. The refe rence range was not u sed to interpret this result as normal/abnor mal. # Lymphs (test code = 2.20 See_Comment [Auto mated message] 414) The system [employer] generated this result transmitted ref erence range: 1.18 - 3 .74 K/L. The refe rence range was not u sed to interpret this result as normal/abnor mal. # Monos (test code = 0.54 See_Comment H [Autom ated message] 415) The system [employer] generated this result transmitted ref erence range: 0.24 - 0 .36 K/L. The refe rence range was not u sed to interpret this result as normal/abnor mal. # Eos (test code = 416) 0.08 See_Comment [Au tomated message] The system [employer] generated this result transmitted ref erence range: 0.04 - 0 .36 K/L. The refe rence range was not u sed to interpret this result as normal/abnor mal. # Baso (test code = 417) 0.03 See_Comment [A utomated message] The system [employer] generated this result transmitted ref erence range: 0.01 - 0 .08 K/L. The refe rence range was not u sed to interpret this result as normal/abnor mal. Immature 0 % 0-1 Granulocytes-Relative (test code = 2801) Lab Interpretation (test Abnormal code = 19766-6) [facility] with platelet count + automated [id number] 06:01:00 Test Item Value Reference Range Interpretation Comments WBC (test code = 6690-2) 7.9 See_Comment [A utomated message] The system [employer] generated this result transmitted ref erence range: 3.5 - 10 .5 K/L. The refe rence range was not u sed to interpret this result as normal/abnor mal. RBC (test code = 789-8) 3.22 See_Comment L [Au tomated message] The system [employer] generated this result transmitted ref erence range: 3.93 - 5 .22 M/L. The refe rence range was not u sed to interpret this result as normal/abnor mal. MCHC (test code = 786-4) 31.8 See_Comment L [A utomated message] The system [employer] generated this result transmitted ref erence range: [...] See_Comment [Aut omated message] 777-3) The system [employer] generated this result transmitted ref erence range: 150 - 45 0 K/CU MM. The referen ce range was not u sed to interpret this result as normal/abnor mal. MPV (test code = 8.9 fL 9.4-12.3 L 94377-7) nRBC (test code = 413) 0 See_Comment [Aut omated message] The system [employer] generated this result transmitted ref erence range: [...] See_Comment [Aut omated message] 670) The system [employer] generated this result transmitted ref erence range: 1.56 - 6 .13 K/L. The refe rence range was not u sed to interpret this result as normal/abnor mal. # Lymphs (test code = 2.20 See_Comment [Auto mated message] 414) The system [employer] generated this result transmitted ref erence range: 1.18 - 3 .74 K/L. The refe rence range was not u sed to interpret this result as normal/abnor mal. # Monos (test code = 0.54 See_Comment H [Autom ated message] 415) The system [employer] generated this result transmitted ref erence range: 0.24 - 0 .36 K/L. The refe rence range was not u sed to interpret this result as normal/abnor mal. # Eos (test code = 416) 0.08 See_Comment [Au tomated message] The system [employer] generated this result transmitted ref erence range: 0.04 - 0 .36 K/L. The refe rence range was not u sed to interpret this result as normal/abnor mal. # Baso (test code = 417) 0.03 See_Comment [A utomated message] The system [employer] generated this result transmitted ref erence range: 0.01 - 0 .08 K/L. The refe rence range was not u sed to interpret this result as normal/abnor mal. Immature 0 % 0-1 Granulocytes-Relative (test code = 2801) Lab Interpretation (test Abnormal code = 16746-0) [facility] with platelet count + automated [id number] 06:01:00 Test Item Value Reference Range Interpretation Comments WBC (test code = 6690-2) 7.9 See_Comment [A utomated message] The system [employer] generated this result transmitted ref erence range: 3.5 - 10 .5 K/L. The refe rence range was not u sed to interpret this result as normal/abnor mal. RBC (test code = 789-8) 3.22 See_Comment L [Au tomated message] The system [employer] generated this result transmitted ref erence range: 3.93 - 5 .22 M/L. The refe rence range was not u sed to interpret this result as normal/abnor mal. MCHC (test code = 786-4) 31.8 See_Comment L [A utomated message] The system [employer] generated this result transmitted ref erence range: [...] See_Comment [Aut omated message] 777-3) The system [employer] generated this result transmitted ref erence range: 150 - 45 0 K/CU MM. The referen ce range was not u sed to interpret this result as normal/abnor mal. MPV (test code = 8.9 fL 9.4-12.3 L 77492-4) nRBC (test code = 413) 0 See_Comment [Aut omated message] The system [employer] generated this result transmitted ref erence range: [...] See_Comment [Aut omated message] 670) The system [employer] generated this result transmitted ref erence range: 1.56 - 6 .13 K/L. The refe rence range was not u sed to interpret this result as normal/abnor mal. # Lymphs (test code = 2.20 See_Comment [Auto mated message] 414) The system [employer] generated this result transmitted ref erence range: 1.18 - 3 .74 K/L. The refe rence range was not u sed to interpret this result as normal/abnor mal. # Monos (test code = 0.54 See_Comment H [Autom ated message] 415) The system [employer] generated this result transmitted ref erence range: 0.24 - 0 .36 K/L. The refe rence range was not u sed to interpret this result as normal/abnor mal. # Eos (test code = 416) 0.08 See_Comment [Au tomated message] The system [employer] generated this result transmitted ref erence range: 0.04 - 0 .36 K/L. The refe rence range was not u sed to interpret this result as normal/abnor mal. # Baso (test code = 417) 0.03 See_Comment [A utomated message] The system [employer] generated this result transmitted ref erence range: 0.01 - 0 .08 K/L. The refe rence range was not u sed to interpret this result as normal/abnor mal. Immature 0 % 0-1 Granulocytes-Relative (test code = 2801) Lab Interpretation (test Abnormal code = 77444-1) [facility] W/PLT COUNT & AUTO [id number] 06:01:00 Test Item Value Reference Range Interpretation [...] (BEAKER) (test code = 2801) ECG 12 [id number] 06:47:19Interface, External Ris In - 05/05/2021 6:47 AM CDTVentricular Rate 91 BPMAtrial Rate 91 BPMP-R Interval 126 msQRS Duration 78 msQ-T Interval 352 msQTC Calculation(Bazett) [address] [place] [address] [place] [address] [place] 39 degreesNormal sinus rhythmNormal ECGNo previous ECGs availableConfirmed by MD BELLAMY JOSEPH P ([id number]) on 05/05/2021 6:47:15 [facility] 12 [id number] 06:47:19Interface, External Ris In 05/05/2021 6:47 AM CDTVentricular Rate 91 BPMAtrial Rate 91 BPMP-R Inte rval 126 msQRS Duration 78 msQ-T Interval 352 msQTC Calculation(Bazett) [address] [place] [address] [place] [address] [place] 39 degreesNormal sinus rhythmNormal ECGNo previous ECGs availableConfirmed by MD BELLAMY JOSEPH P ([id number]) on 05/05/2021 6:47:15 [facility] 12 [id number] 06:47:19Interface, External Ris In 05/05/2021 6:47 AM CDTVentricular Rate 91 BPMAtrial Rate 91 BPMP-R Interval 126 msQRS Duration 78 msQ-T Interval 352 msQTC Calculation(Bazett) [address] [place] [address] [place] [address] [place] 39 degreesNormal sinus rhythmNormal ECGNo previous ECGs availableConfirmed by OKSANA LANDRUM MD, JOSEPH P ([id number]) on 05/05/2021 6:47:15 [facility] 12 [id number] 06:47:19Interface, External Ris In - 05/05/2021 6:47 AM CDTVentricular Rate 91 BPMAtrial Rate 91 BPMP-R Interval 126 msQRS Duration 78 msQ-T Interval 352 msQTC Calculation(Bazett) [address] [place] [address] [place] [address] [place] 39 degreesNormal sinus rhythmNormal ECGNo previous ECGs availableConfirmed by MD BELLAMY JOSEPH P ([id number]) on 05/05/2021 6:47:15 [facility] [id number] 06:17:00 Test Item Value Reference Range Interpretation Comments ABO Grouping (test code = 2588) O Rh Factor (test code = 2589) POS [facility], [id number] 06:17:00 Test Item Value Reference Range Interpretation Comments ABO Grouping (test code = 2588) O Rh Factor (test code = 2589) POS [facility], [id number] 06:17:00 Test Item Value Reference Range Interpretation Comments ABO Grouping (test code = 2588) O Rh Factor (test code = 2589) POS [facility], [id number] 06:17:00 Test Item Value Reference Range Interpretation Comments ABO Grouping (test code = 2588) O Rh Factor (test code = 2589) [facility] ([facility]) 2021-05-05 05:01:00 Test Item Value Reference Range Interpretation Comments ABO/RH AUTOMATED (BEAKER) (test O POSITIVE code = 2260) Ab Scrn (test code = 890-4) NEGATIVE [facility] ([facility]) 2021-05-05 05:01:00 Test Item Value Reference Range Interpretation Comments ABO/RH AUTOMATED (BEAKER) (test O POSITIVE code = 2260) Ab Scrn (test code = 890-4) NEGATIVE [facility] ([facility]) 2021-05-05 05:01:00 Test Item Value Reference Range Interpretation Comments ABO/RH AUTOMATED (BEAKER) (test O POSITIVE code = 2260) Ab Scrn (test code = 890-4) NEGATIVE [facility] ([facility]) 2021-05-05 05:01:00 Test Item Value Reference Range Interpretation Comments ABO/RH AUTOMATED (BEAKER) (test O POSITIVE code = 2260) Ab Scrn (test code = 890-4) NEGATIVE [facility]/[id number] 04:35:00 Test Item Value Reference Interpretation Comments Range Protime (test code = 13.7 See_Comment [Autom ated 5902-2) message] The system which generated this result transmitted reference range : 11.9 - 14.2 seconds. The reference range was not used to interpret this result as normal/abnormal . INR (test code = 1.07 See_Comment [Automated [employer]-6) message] The system which generated this result [...] valves. Lab Interpretation Normal (test code = 50131-6) [facility]/[id number] 04:35:00 Test Item Value Reference Interpretation Comments Range Protime (test code = 13.7 See_Comment [Autom ated 5902-2) message] The system which generated this result transmitted reference range : 11.9 - 14.2 seconds. The reference range was not used to interpret this result as normal/abnormal . INR (test code = 1.07 See_Comment [Automated [employer]-6) message] The system which generated this result [...] valves. Lab Interpretation Normal (test code = 19696-9) [facility][id number] 04:35:00 Test Item Value Reference Interpretation Comments [...] valves. Lab Interpretation Normal (test code = 38440-9) [facility]PT/[id number] 04:35:00 Test Item Value Reference Interpretation Comments [...] valves. Lab Interpretation Normal (test code = 85457-2) [facility] HospitalPROTHROMBIN TIME/[id number] 04:35:00 Test Item Value Reference Range Interpretation Comments PROTIME (BEAKER) 13.7 seconds 11.9-14.2 (test code = 759) INR (BEAKER) (test 1.07 See_Comment [Automat ed message] code = 370) The system [employer] generated this result transmitted ref erence range: <=5.90. The reference range was not used to int erpret this result as normal/abnormal . RECOMMENDED COUMADIN/WARFARIN INR THERAPY RANGESSTANDARD DOSE: 2.0 - 3.0 Includes: PROPHYLAXIS forvenous thrombosis, systemic embolization; TREATMENT for venous thrombosis and/or pulmonary embolus.HIGH RISK: Target INR is 2.5-3.5 for patients with mechanical heart valves.High Sensitivity Troponin [id number] 01:56:00 Test Item Value Reference Range Interpretation Comments Troponin I HS <4 See_Comment [Automated (test code = message] The 85022-0) system which generated this result transmitted reference range : <=17 pg/ml. The reference range was not used to interpret this result as normal/abnormal . TORRES (test code = Data Communications Technician ID - TORRES) DBThe DIRECTOR OF SAFETY AND SECURITY STAT High Sensitivity Troponin-I results should be used in conjunction with other diagnostic information such as ECG, clinical observations and information, and patient symptoms to aid in the diagnosis of NE. Lab Interpretation Normal (test code = 09132-5) [facility] Troponin [id number] 01:56:00 Test Item Value Reference Range Interpretation Comments Troponin I HS <4 See_Comment [Automated (test code = message] [employer]) system which generated this result transmitted reference range : <=17 pg/ml. The reference range was not used to interpret this result as normal/abnormal . TORRES (test code = Data Communications Technician ID - TORRES) DBThe DIRECTOR OF SAFETY AND SECURITY STAT High Sensitivity Troponin-I results should be used in conjunction with other diagnostic information such as ECG, clinical observations and information, and patient symptoms to aid in the diagnosis of NE. Lab Interpretation Normal (test code = 01975-0) [facility] Troponin [id number] 01:56:00 Test Item Value Reference Range Interpretation Comments Troponin I HS <4 See_Comment [Automated (test code = message] [employer]) system which generated this result transmitted reference range : <=17 pg/ml. The reference range was not used to interpret this result as normal/abnormal . TORRES (test code = Data Communications Technician ID - TORRES) DBThe DIRECTOR OF SAFETY AND SECURITY STAT High Sensitivity Troponin-I results should be used in conjunction with other diagnostic information such as ECG, clinical observations and information, and patient symptoms to aid in the diagnosis of NE. Lab Interpretation Normal (test code = 40744-8) [facility] Troponin [id number] 01:56:00 Test Item Value Reference Range Interpretation Comments Troponin I HS <4 See_Comment [Automated (test code = message] The 18831-9) system which generated this result transmitted reference range : <=17 pg/ml. The reference range was not used to interpret this result as normal/abnormal . TORRES (test code = Data Communications Technician ID - TORRES) DBThe DIRECTOR OF SAFETY AND SECURITY STAT High Sensitivity Troponin-I results should be used in conjunction with other diagnostic information such as ECG, clinical observations and information, and patient symptoms to aid in the diagnosis of NE. Lab Interpretation Normal (test code = 73537-4) [facility] TROPONIN [id number] 01:56:00 Test Item Value Reference Range Interpretation Comments HIGH SENSITIVITY < pg/ml See_Comment [Automated message] TROPONIN I (test code = The system which 5614932) generated this result transmitted ref erence range: <=17. Th e reference range was not used to interpr et this result as normal/abnormal . Data Communications Technician ID - DBThe DIRECTOR OF SAFETY AND SECURITY STAT High Sensitivity Troponin-I results should be used in conjunctionwith other diagnostic information such as ECG, clinical observations and information, and patient symptoms to aid in the diagnosis of NE.Ketones, [id number] 01:40:00 Test Item Value Reference Range Interpretation Comments Ketones, Blood (test code = 1103) 0.4 mmol/L <0.4 H Lab Interpretation (test code = Abnormal 87128-4) [facility], [id number] 01:40:00 Test Item Value Reference Range Interpretation Comments Ketones, Blood (test code = 1103) 0.4 mmol/L <0.4 H Lab Interpretation (test code = Abnormal 42180-9) [facility], [id number] 01:40:00 Test Item Value Reference Range Interpretation Comments Ketones, Blood (test code = 1103) 0.4 mmol/L <0.4 H Lab Interpretation (test code = Abnormal 19782-5) [facility], [id number] 01:40:00 Test Item Value Reference Range Interpretation Comments Ketones, Blood (test code = 1103) 0.4 mmol/L <0.4 H Lab Interpretation (test code = Abnormal 74051-4) [facility] [id number] 01:40:00 Test Item Value Reference Range Interpretation Comments KETONES, BLOOD (BEAKER) (test code 0.4 mmol/L <0.4 H = 1103) SARS-CoV2/RT-PCR (Asymptomatic ONLY)2021-05-05 01:30:00 Test Item Value Reference Interpretation Comments Range SARS-COV2/RT-PCR Negative Negative The SARS-Co V-2 (test code = target nucleic 78772-5) acids are not detected in thi s [...] revoked sooner. Fact Sheet for Healthcare Providers: https://www.[employer]/Documents/Xp ert%20Xpress%20SAR S%20CoV-2/Fact%20S heets/302-3802%20S ARS-COV-2%20HEALTH CARE%20PROVIDERS%2 0FACT%20SHEET.pdf Fact Sheet for Healthcare Patients: https://www.[employer]/Documents/Xp ert%20Xpress%20SAR S%20CoV-2/Fact%20S heets/302-3801%20S ARS-COV-2%20PATIEN T%20FACT%20SHEET.p df Lab Interpretation Normal (test code = 50751-6) [facility]21-[facility]-05 01:30:00 Test Item Value Reference Interpretation Comments Range SARS-COV2/RT-PCR Negative Negative The SARS-Co V-2 (test code = target nucleic 00696-6) acids are not detected in thi s [...] revoked sooner. Fact Sheet for Healthcare Providers: https://www.[employer]/Documents/Xp ert%20Xpress%20SAR S%20CoV-2/Fact%20S heets/302-3802%20S ARS-COV-2%20HEALTH CARE%20PROVIDERS%2 0FACT%20SHEET.pdf Fact Sheet for Healthcare Patients: https://www.[employer]/Documents/Xp ert%20Xpress%20SAR S%20CoV-2/Fact%20S heets/302-3801%20S ARS-COV-2%20PATIEN T%20FACT%20SHEET.p df Lab Interpretation Normal (test code = 63749-7) [facility]2021-05-05 01:30:00 Test Item Value Reference Interpretation Comments Range SARS-COV2/RT-PCR Negative Negative The SARS-Co V-2 (test code = target nucleic 58925-7) acids are not detected in thi s [...] revoked sooner. Fact Sheet for Healthcare Providers: https://www.[employer]/Documents/Xp ert%20Xpress%20SAR S%20CoV-2/Fact%20S heets/302-3802%20S ARS-COV-2%20HEALTH CARE%20PROVIDERS%2 0FACT%20SHEET.pdf Fact Sheet for Healthcare Patients: https://www.[employer]/Documents/Xp ert%20Xpress%20SAR S%20CoV-2/Fact%20S heets/302-3801%20S ARS-COV-2%20PATIEN T%20FACT%20SHEET.p df Lab Interpretation Normal (test code = 12982-4) [facility]2021-05-05 01:30:00 Test Item Value Reference Interpretation Comments Range SARS-COV2/RT-PCR Negative Negative The SARS-Co V-2 (test code = target nucleic 81396-2) acids are not detected in thi s [...] revoked sooner. Fact Sheet for Healthcare Providers: https://www.[employer]/Documents/Xp ert%20Xpress%20SAR S%20CoV-2/Fact%20S heets/302-3802%20S ARS-COV-2%20HEALTH CARE%20PROVIDERS%2 0FACT%20SHEET.pdf Fact Sheet for Healthcare Patients: https://www.[employer]/Documents/Xp ert%20Xpress%20SAR S%20CoV-2/Fact%20S heets/302-3801%20S ARS-COV-2%20PATIEN T%20FACT%20SHEET.p df Lab Interpretation Normal (test code = 88324-8) [facility])2021-05-05 01:30:00 Test Item Value Reference Range Interpretation Comments SARS-COV2/RT-PCR Negative Negative The SARS-Co V-2 target (test code = nucleic acids a re not 8779141) detected in thi s specimen. Negative result [...] revoked sooner. Fact Sheet for Healthcare Providers: https://www.[employer]/Documents/Xpert%20Xpress%20SARS%20CoV-2/Fact%20Sheets/3023802%20SARS-COV -2%20HEALTHCARE%20PROVIDERS%20FACT%20SHEET.pdf Fact Sheet for Healthcare Patients: https://www.[employer]/Documents/Xpert %20Xpress%20SARS%20CoV-2/Fact%20Sheets/3023801%03LQUN-ZHM-8%20PATIENT%20FACT%20 SHEET.pdfBlood gas, [id number] 01:22:00 Test Item Value Reference Range Interpretation Comments pH, Niranjan (test code = 7.35 7.32-7.42 3766-6) pCO2, Niranjan (test code = 39 See_Comment L [Aut omated 755) message] The sy stem which generated this result transmitted reference range : 41 - 51 mm Hg. The reference range was not used to interpret this result as normal/abnormal . pO2, Niranjan (test code = 59 See_Comment H [Auto mated 9835-2) message] The sy stem which generated this result transmitted reference range : 25 - 40 mm Hg. The reference range was not used to interpret this result as normal/abnormal . O2 Sat, Niranjan (test code 89.4 % 40-70 H = 2711-0) HCO3, Niranjan (test code = 21 mmol/L 21- 38468-3) Base Excess, Niranjan (test -4.5 mmol/L -2-3 L code = 1927-3) Patient Temperature 37.0 (test code = 8310-5) FIO2 (test code = 1819) 21 Lab Interpretation Abnormal (test code = 74016-2) [facility] gas, [id number] 01:22:00 Test Item Value Reference Range Interpretation [...] Niranjan (test code = 21 mmol/L 21-29 65063-3) Base Excess, Niranjan (test -4.5 mmol/L -2-3 L code = 1927-3) Patient Temperature 37.0 (test code = 8310-5) FIO2 (test code = 1819) 21 Lab Interpretation Abnormal (test code = 45881-5) [facility] gas, [id number] 01:22:00 Test Item Value Reference Range Interpretation [...] Niranjan (test code = 21 mmol/L 21-29 49932-9) Base Excess, Niranjan (test -4.5 mmol/L -2-3 L code = 1927-3) Patient Temperature 37.0 (test code = 8310-5) FIO2 (test code = 1819) 21 Lab Interpretation Abnormal (test code = 23601-1) [facility] gas, [id number] 01:22:00 Test Item Value Reference Range Interpretation [...] Niranjan (test code = 21 mmol/L 21-29 13063-6) Base Excess, Niranjan (test -4.5 mmol/L -2-3 L code = 1927-3) Patient Temperature 37.0 (test code = 8310-5) FIO2 (test code = 1819) 21 Lab Interpretation Abnormal (test code = 84919-4) [facility] GAS, [id number] 01:22:00 Test Item Value Reference Range Interpretation [...] (BEAKER) (test code = 1819) 21.0 ECG/EKG Tikrmsvfuttpwp2890-76-75 23:15:Cherie Guerra MD 05/05/2021 2:11 AMECG/EKG Interpretation Date/Time: 05/04/2021 11:26 PMPerformed by: Cherie Faustin MDAuthorized by: Cherie Faustin MD The ECG was interpreted by ED physician. The ECG is interpreted as sinus rhythm. Rate is normal rate. Heart rate is 91 BPM.ST segments normal. T-wave inversion in lead(s) V1 and V2. Clinical Impression: [facility]CH[facility] Uioxlyomvupksj1015-80-84 23:15:Cherie Guerra MD 05/05/2021 2:11 AMECG/EKG Interpretation Date/Time: 05/04/2021 11:26 PMPerformed by: Cherie Faustin MDAuthorized by: Cherie Faustin MD The ECG was interpreted by ED physician. The ECG is interpreted as sinus rhythm. Rate is normal rate. Heart rate is 91 BPM.ST segments normal. T-wave inversion in lead(s) V1 and V2. Clinical Impression: normal [facility]CH[facility]EC[facility]KG Tadfpufejwtxqv3867-42-23 23:15:Cherie Guerra MD 05/05/2021 2:11 AMECG/EKG Interpretation Date/Time: 05/04/2021 11:26 PMPerformed by: Cherie Faustin MDAuthorized by: Cherie Faustin MD The ECG was interpreted by ED physician. The ECG is interpreted as sinus rhythm. Rate is normal rate. Heart rate is 91 BPM.ST segments normal. T-wave inversion in lead(s) V1 and V2. Clinical Impression: normal [facility]CH[facility] HospitalEC[facility]KG Bstqvutdvnjjwc0610-70-65 23:15:Cherie Guerra MD 05/05/2021 2:11 AMECG/EKG Interpretation Date/Time: 05/04/2021 11:26 PMPerformed by: Cherie Faustin MDAuthorized by: Cherie Faustin MD The ECG was interpreted by ED physician. The ECG is interpreted as sinus rhythm. Rate is normal rate. Heart rate is 91 BPM.ST segments normal. T-wave inversion in lead(s) V1 and V2. Clinical Impression: normal ECGPl[facility] HospitalHEPATIC FUNCTION [id number] 22:01:00 Test Item Value Reference Range Interpretation [...] Specimen moderately (test code = 347) hemolyzed Data Communications Technician ID - WYUblfjej8534-64-66 21:53:00 Test Item Value Reference Range Interpretation Comments Amylase (test code = 143 U/L 25-125 H Specime n 1798-8) markedly hemolyzed TORRES (test code = TORRES) Data Communications Technician ID - DB Lab Interpretation Abnormal (test code = 60530-6) [facility]20[facility] 21:53:00 Test Item Value Reference Range Interpretation Comments Lipase (test code = 3040-3) 97 U/L 8-78 H TORRES (test code = TORRES) Data Communications Technician ID - DB Lab Interpretation (test Abnormal code = 68227-4) [facility] HospitalAmylase2021-08-23 21:53:00 Test Item Value Reference Range Interpretation Comments Amylase (test code = 143 U/L 25-125 H Specime n 1798-8) markedly hemolyzed TORRES (test code = TORRES) Data Communications Technician ID - DB Lab Interpretation Abnormal (test code = 08039-8) [facility]2021-[facility]-23 21:53:00 Test Item Value Reference Range Interpretation Comments Lipase (test code = 3040-3) 97 U/L 8-78 H TORRES (test code = TORRES) Data Communications Technician ID - DB Lab Interpretation (test Abnormal code = 68866-4) [facility] HospitalAmylase2021-08-23 21:53:00 Test Item Value Reference Range Interpretation Comments Amylase (test code = 143 U/L 25-125 H Specime n 1798-8) markedly hemolyzed TORRES (test code = TORRES) Data Communications Technician ID - DB Lab Interpretation Abnormal (test code = 08358-9) [facility]2021-[facility] 21:53:00 Test Item Value Reference Range Interpretation Comments Lipase (test code = 3040-3) 97 U/L 8-78 H TORRES (test code = TORRES) Data Communications Technician ID - DB Lab Interpretation (test Abnormal code = 49453-7) [facility] HospitalAmylase2021-08-23 21:53:00 Test Item Value Reference Range Interpretation Comments Amylase (test code = 143 U/L 25-125 H Specime n 1798-8) markedly hemolyzed TORRES (test code = TORRES) Data Communications Technician ID - DB Lab Interpretation Abnormal (test code = 32869-8) [facility]2021-[facility] 21:53:00 Test Item Value Reference Range Interpretation Comments Lipase (test code = 3040-3) 97 U/L 8-78 H TORRES (test code = TORRES) Data Communications Technician ID - DB Lab Interpretation (test Abnormal code = 35758-0) [facility] HospitalBASIC METABOLIC [id number] 21:53:00 Test Item Value Reference Range Interpretation [...] S NOT APPLICABLE FOR DIALYSIS PATIEN TS. Data Communications Technician ID - [id number] 21:53:00 Test Item Value Reference Range Interpretation Comments AMYLASE (BEAKER) (test 143 U/L 25-125 H Speci men markedly code = 349) hemolyzed Data Communications Technician ID - [id number] 21:53:00 Test Item Value Reference Range Interpretation Comments LIPASE (BEAKER) (test code = 749) 97 U/L 8-78 H Data Communications Technician ID - DBCBC W/PLT COUNT & AUTO [id number] 19:51:00 Test Item Value Reference Range Interpretation [...] PERCENT (BEAKER) (test code = 2801) POC-Glucose [id number] 08:41:00 Test Item Value Reference Range Interpretation Comments POC-Glucose Meter (test 104 mg/dL 70-110 : TE STED AT [facility] code = 1538) [address] [place] [address], [address] 30: Data Communications Technician/Techni aldo ID = [id number] for HUSSEIN LEMON Lab Interpretation (test Normal code = 40429-9) [facility]-Glucose [id number] 08:41:00 Test Item Value Reference Range Interpretation Comments POC-Glucose Meter (test 104 mg/dL 70-110 : TE STED AT [facility] code = 1538) [address] [place] [address], [address] 30: Data Communications Technician/Techni aldo ID = [id number] for HUSSEIN LEMON Lab Interpretation (test Normal code = 97626-1) [facility]-Glucose [id number] 08:41:00 Test Item Value Reference Range Interpretation Comments POC-Glucose Meter (test 104 mg/dL 70-110 : TE STED AT [facility] code = 1538) [address] [facility], 770 30: Data Communications Technician/Techni aldo ID = [id number] for HUSSEIN LEMON Lab Interpretation (test Normal code = 68132-2) [facility]-Glucose [id number] 08:41:00 Test Item Value Reference Range Interpretation Comments POC-Glucose Meter (test 104 mg/dL 70-110 : TE STED AT [facility] code = 1538) [address] [facility], 770 30: Data Communications Technician/Techni aldo ID = [id number] for HUSSEIN LEMON Lab Interpretation (test Normal code = 52510-4) [facility]-GLUCOSE [id number] 08:41:00 Test Item Value Reference Range Interpretation Comments POC-GLUCOSE METER 104 mg/dL 70-110 : TESTED A T [facility] 6720 (BEAKER) (test code = [facility], 1538) [address]: Data Communications Technician/Techni aldo ID = [id number] for HUSSEIN DAVID Comprehensive metabolic [id number] 06:49:00 Test Item Value Reference Range Interpretation Comments Protein, Total (test 6.8 See_Comment [Autom ated code = 2885-2) message] The system which generated this result transmit lane reference range : 6.0 - 8.3 gm/dL . The reference range was not u sed to interpret th is result as normal/abnormal . Albumin (test code = 3.5 g/dL 3.5-5 73701-5) Alkaline Phosphatase 44 U/L 40-150 (test code = 6768-6) Total Bilirubin (test 0.3 mg/dL 0.2-1.2 code = 1975-2) Sodium (test code = 139 meq/L 847-964 5326-2) Potassium (test code 3.8 meq/L 3.5-5.1 = 2823-3) Chloride (test code = 104 meq/L 98-107 2075-0) CO2 (test code = 27 meq/L 22-29 8-9) BUN (test code = 12 mg/dL 7-21 3094-0) Creatinine (test code 1.05 mg/dL 0.57-1.25 = 2160-0) Glucose (test code = 79 mg/dL 70-105 2345-7) Calcium (test code = 8.4 mg/dL 8.4-10.2 92477-3) AST (test code = 49 U/L 5-34 H 1920-8) ALT (test code = 41 U/L 6-55 1742-6) EGFR (test code = 52 mL/min/1.[address] [place] [address]-0) NOT ACCURATE CREATININE CLEARANCE IN PREDICTING GLOMERULAR FILTRATION RATE . ESTIMATED GFR I S NOT APPLICABLE FOR DIALYSIS PATIEN TORRES (test code = TORRES) Data Communications Technician ID - HUMBLE M Lab Interpretation Abnormal (test code = 19293-8) [facility] HospitalComprehensive metabolic [id number] 06:49:00 Test Item Value Reference Range Interpretation Comments Protein, Total (test 6.8 See_Comment [Autom ated code = 2885-2) message] The system which generated this result transmit lane reference range : 6.0 - 8.3 gm/dL . The reference range was not u sed to interpret th is result as normal/abnormal . Albumin (test code = 3.5 g/dL 3.5-5 37502-1) Alkaline Phosphatase 44 U/L 40-150 (test code = 6768-6) Total Bilirubin (test 0.3 mg/dL 0.2-1.2 code = 1974-2) Sodium (test code = 139 meq/L 205-337 2845-2) Potassium (test code 3.8 meq/L 3.5-5.1 = 2823-3) Chloride (test code = 104 meq/L 98-107 5-0) CO2 (test code = 27 meq/L 22-29 2027-9) BUN (test code = 12 mg/dL 7-21 3094-0) Creatinine (test code 1.05 mg/dL 0.57-1.25 = 2160-0) Glucose (test code = 79 mg/dL 70-105 2345-7) Calcium (test code = 8.4 mg/dL 8.4-10.2 72660-0) AST (test code = 49 U/L 5-34 H 1920-8) ALT (test code = 41 U/L 6-55 1742-6) EGFR (test code = 52 mL/min/1.[address] [place] [address]-4) NOT ACCURATE CREATININE CLEARANCE IN PREDICTING GLOMERULAR FILTRATION RATE . ESTIMATED GFR I S NOT APPLICABLE FOR DIALYSIS PATIEN TS. TORRES (test code = TORRES) Data Communications Technician ID - HUMBLE M Lab Interpretation Abnormal (test code = 78288-7) [facility] [id number] 06:49:00 Test Item Value Reference Range Interpretation Comments Protein, Total (test 6.8 See_Comment [Autom ated code = 2885-2) message] The system which generated this result transmit lane reference range : 6.0 - 8.3 gm/dL . The reference range was not u sed to interpret th is result as normal/abnormal . Albumin (test code = 3.5 g/dL 3.5-5 78189-0) Alkaline Phosphatase 44 U/L 40-150 (test code = 6768-6) Total Bilirubin (test 0.3 mg/dL 0.2-1.2 code = 1974-2) Sodium (test code = 139 meq/L 244-004 6309-2) Potassium (test code 3.8 meq/L 3.5-5.1 = 2823-3) Chloride (test code = 104 meq/L 98-107 2075-0) CO2 (test code = 27 meq/L 22-29 8-9) BUN (test code = 12 mg/dL 7-21 3094-0) Creatinine (test code 1.05 mg/dL 0.57-1.25 = 2160-0) Glucose (test code = 79 mg/dL 70-105 2345-7) Calcium (test code = 8.4 mg/dL 8.4-10.2 93952-6) AST (test code = 49 U/L 5-34 H 1920-8) ALT (test code = 41 U/L 1742-6) EGFR (test code = 52 mL/min/1.[address] [place] [address]-3) NOT ACCURATE CREATININE CLEARANCE IN PREDICTING GLOMERULAR FILTRATION RATE . ESTIMATED GFR I S NOT APPLICABLE FOR DIALYSIS PATIEN TS. TORRES (test code = TORRES) Data Communications Technician ID - HUMBLE M Lab Interpretation Abnormal (test code = 34126-5) [facility] [id number] 06:49:00 Test Item Value Reference Range Interpretation Comments Protein, Total (test 6.8 See_Comment [Autom ated code = 2885-2) message] The system which generated this result transmit lane reference range : 6.0 - 8.3 gm/dL . The reference range was not u sed to interpret th is result as normal/abnormal . Albumin (test code = 3.5 g/dL 3.5-5 79748-9) Alkaline Phosphatase 44 U/L 40-150 (test code = 6768-6) Total Bilirubin (test 0.3 mg/dL 0.2-1.2 code = 1975-2) Sodium (test code = 139 meq/L 100-167 8977-2) Potassium (test code 3.8 meq/L 3.5-5.1 = 2823-3) Chloride (test code = 104 meq/L 98-107 2075-0) CO2 (test code = 27 meq/L 22-29 2028-9) BUN (test code = 12 mg/dL 7-21 3094-0) Creatinine (test code 1.05 mg/dL 0.57-1.25 = 2160-0) Glucose (test code = 79 mg/dL 70-105 2345-7) Calcium (test code = 8.4 mg/dL 8.4-10.2 40617-9) AST (test code = 49 U/L 5-34 H 1920-8) ALT (test code = 41 U/L 6-55 1742-6) EGFR (test code = 52 mL/min/1.[address] [place] [address]-8) NOT ACCURATE CREATININE CLEARANCE IN PREDICTING GLOMERULAR FILTRATION RATE . ESTIMATED GFR I S NOT APPLICABLE FOR DIALYSIS PATIEN TS. TORRES (test code = TORRES) Data Communications Technician ID - HUMBLE M Lab Interpretation Abnormal (test code = 78727-9) [facility] HospitalCOMPREHENSIVE METABOLIC [id number] 06:49:00 Test Item Value Reference Range Interpretation [...] S NOT APPLICABLE FOR DIALYSIS PATIEN TS. Data Communications Technician ID - HUMBLE MPOCT-GLUCOSE [id number] 16:54:00 Test Item Value Reference Range Interpretation Comments POC-GLUCOSE METER 171 mg/dL 70-110 H : TESTED A T [facility] 6720 (BEAKER) (test code = [place], 1538) [address]: Data Communications Technician/Techni aldo ID = [id number] for ALBINO GONZALEZ Hemoglobin [id number] 15:22:00 Test Item Value Reference Range Interpretation Comments Hemoglobin A1C (test code = 4548-4) 6.2 % 4.3-6.1 H Lab Interpretation (test code = Abnormal 76113-5) [facility] HospitalHem[facility] [id number] 15:22:00 Test Item Value Reference Range Interpretation Comments Hemoglobin A1C (test code = 4548-4) 6.2 % 4.3-6.1 H Lab Interpretation (test code = Abnormal 53133-4) [facility] HospitalHem[facility] [id number] 15:22:00 Test Item Value Reference Range Interpretation Comments Hemoglobin A1C (test code = 4548-4) 6.2 % 4.3-6.1 H Lab Interpretation (test code = Abnormal 45459-3) [facility] HospitalHem[facility] [id number] 15:22:00 Test Item Value Reference Range Interpretation Comments Hemoglobin A1C (test code = 4548-4) 6.2 % 4.3-6.1 H Lab Interpretation (test code = Abnormal 27775-8) [facility] HospitalHEMOGLOBIN [id number] 15:22:00 Test Item Value Reference Range Interpretation Comments HEMOGLOBIN A1C (BEAKER) (test code = 6.2 % 4.3-6.1 H 368) POCT-GLUCOSE [id number] 12:56:00 Test Item Value Reference Range Interpretation Comments POC-GLUCOSE METER 93 mg/dL 70-110 : Notified RN/MD: TESTED (ZONIAAKER) (test code = AT [facility] [address] [facility] 1538) [facility], [facility] 30: Data Communications Technician/Techni aldo ID = [id number] for Simm Arely gorman [place], [id number] 12:02:00Reason for exam:->ER[facility] tomorrow [facility] : 1950 Sex: FFluoroscopic unit utilized for a procedure performed in the OR. No interpretation was requested. Refer to the operative report for findings. Refer to PACS for patient radiation dose information.[place] Endoscopic Retrograde Xtssstkcozuleikxetwvqzvr6325-84-18 12:02:00Interface, External Ris In 03/10/2021 12:18 PM CDTFluoroscopic unit utilized for a procedure performed in the OR. No interpretation was requested. Refer to the operative report for findings. Referto PACS for patient radiation dose information.[facility] Endoscopic Retrograde Ncznsxhvqleqodlvpffzqdqc7020-36-47 12:02:00Interface, External Ris In 03/10/2021 12:18 PM CDTFluoroscopic unit utilized for a procedure performed in the OR. No interpretation was requested. Refer to the operative report for findings. Referto PACS for patient radiation dose information.[facility] Endoscopic Retrograde Mpkedmizxjwdynvntnrlswrx2016-42-66 12:02:00Interface, External Ris In 03/10/2021 12:18 PM CDTFluoroscopic unit utilized for a procedure performed in the OR. No interpretation was requested. Refer to the operative report for findings. Referto PACS for patient radiation dose information.[facility] Endoscopic Retrograde Pvirfpyvshnltwjvvgkfdgbu4676-84-86 12:02:00Interface, External Ris In 03/10/2021 12:18 PM CDTFluoroscopic unit utilized for a procedure performed in the OR. No interpretation was requested. Refer to the operative report for findings. Referto PACS for patient radiation dose information.[facility] HospitalPOCT-GLUCOSE [id number] 09:27:00 Test Item Value Reference Range Interpretation Comments POC-GLUCOSE METER 74 mg/dL 70-110 : TESTED A T [facility] 67[address] ([facility]) (test code = [facility], 1538) [address]: Data Communications Technician/Techni aldo ID = [id number] for ALBINO ROSS COMPREHENSIVE METABOLIC [id number] 05:49:00 Test Item Value Reference Range Interpretation Comments TOTAL PROTEIN 6.8 gm/dL 6.0-8.3 ([facility]) (test code = 770) ALBUMIN ([facility]) 3.5 g/dL 3.5-5.0 (test code = 1145) ALKALINE PHOSPHATASE 45 U/L 40-150 ([facility]) (test code = 346) BILIRUBIN [...] S NOT APPLICABLE FOR DIALYSIS PATIEN TS. Data Communications Technician ID - HUMBLE [facility] (Hemogram only)2021-03-10 05:10:00 Test Item Value Reference Range Interpretation Comments WBC (test code = 6690-2) 9.1 See_Comment [A utomated message] The system [employer] generated this result transmitted ref erence range: 3.5 - 10 .5 K/L. The refe rence range was not u sed to interpret this result as normal/abnor mal. RBC (test code = 789-8) 3.57 See_Comment L [Au tomated message] The system [employer] generated this result transmitted ref erence range: 3.93 - 5 .22 M/L. The refe rence range was not u sed to interpret this result as normal/abnor mal. MCHC (test code = 786-4) 30.9 See_Comment L [A utomated message] The system [employer] generated this result transmitted ref erence range: [...] See_Comment [Aut omated message] 777-3) The system [employer] generated this result transmitted ref erence range: 150 - 45 0 K/CU MM. The referen ce range was not u sed to interpret this result as normal/abnor mal. MPV (test code = 9.3 fL 9.4-12.3 L 05195-5) nRBC (test code = 413) 0 See_Comment [Aut omated message] The system [employer] generated this result transmitted ref erence range: 0 - 0 /1 00 WBC. The refere nce range was not u sed to interpret this result as normal/abnor mal. Lab Interpretation (test Abnormal code = 79256-8) [facility]:10:00 Test Item Value Reference Range Interpretation Comments WBC (test code = 6690-2) 9.1 See_Comment [A utomated message] The system [employer] generated this result transmitted ref erence range: 3.5 - 10 .5 K/L. The refe rence range was not u sed to interpret this result as normal/abnor mal. RBC (test code = 789-8) 3.57 See_Comment L [Au tomated message] The system [employer] generated this result transmitted ref erence range: 3.93 - 5 .22 M/L. The refe rence range was not u sed to interpret this result as normal/abnor mal. MCHC (test code = 786-4) 30.9 See_Comment L [A utomated message] The system [employer] generated this result transmitted ref erence range: [...] See_Comment [Aut omated message] 777-3) The system [employer] generated this result transmitted ref erence range: 150 - 45 0 K/CU MM. The referen ce range was not u sed to interpret this result as normal/abnor mal. MPV (test code = 9.3 fL 9.4-12.3 L 12660-5) nRBC (test code = 413) 0 See_Comment [Aut omated message] The system [employer] generated this result transmitted ref erence range: 0 - 0 /1 00 WBC. The refere nce range was not u sed to interpret this result as normal/abnor mal. Lab Interpretation (test Abnormal code = 02763-8) [facility] 05:10:00 Test Item Value Reference Range Interpretation Comments WBC (test code = 6690-2) 9.1 See_Comment [A utomated message] The system [employer] generated this result transmitted ref erence range: 3.5 - 10 .5 K/L. The refe rence range was not u sed to interpret this result as normal/abnor mal. RBC (test code = 789-8) 3.57 See_Comment L [Au tomated message] The system [employer] generated this result transmitted ref erence range: 3.93 - 5 .22 M/L. The refe rence range was not u sed to interpret this result as normal/abnor mal. MCHC (test code = 786-4) 30.9 See_Comment L [A utomated message] The system [employer] generated this result transmitted ref erence range: [...] See_Comment [Aut omated message] 777-3) The system [employer] generated this result transmitted ref erence range: 150 - 45 0 K/CU MM. The referen ce range was not u sed to interpret this result as normal/abnor mal. MPV (test code = 9.3 fL 9.4-12.3 L 36359-6) nRBC (test code = 413) 0 See_Comment [Aut omated message] The system [employer] generated this result transmitted ref erence range: 0 - 0 /1 00 WBC. The refere nce range was not u sed to interpret this result as normal/abnor mal. Lab Interpretation (test Abnormal code = 51519-9) [facility] 05:10:00 Test Item Value Reference Range Interpretation Comments WBC (test code = 6690-2) 9.1 See_Comment [A utomated message] The system [employer] generated this result transmitted ref erence range: 3.5 - 10 .5 K/L. The refe rence range was not u sed to interpret this result as normal/abnor mal. RBC (test code = 789-8) 3.57 See_Comment L [Au tomated message] The system [employer] generated this result transmitted ref erence range: 3.93 - 5 .22 M/L. The refe rence range was not u sed to interpret this result as normal/abnor mal. MCHC (test code = 786-4) 30.9 See_Comment L [A utomated message] The system [employer] generated this result transmitted ref erence range: [...] See_Comment [Aut omated message] 777-3) The system [employer] generated this result transmitted ref erence range: 150 - 45 0 K/CU MM. The referen ce range was not u sed to interpret this result as normal/abnor mal. MPV (test code = 9.3 fL 9.4-12.3 L 14923-2) nRBC (test code = 413) 0 See_Comment [Aut omated message] The system [employer] generated this result transmitted ref erence range: 0 - 0 /1 00 WBC. The refere nce range was not u sed to interpret this result as normal/abnor mal. Lab Interpretation (test Abnormal code = 49078-1) [facility] (HEMOGRAM ONLY)2021-03-10 05:10:00 Test Item [...] 0-0 (BEAKER) (test code = 413) POCT-GLUCOSE [id number] 00:05:00 Test Item Value Reference Range Interpretation Comments POC-GLUCOSE METER 83 mg/dL 70-110 : TESTED A T [facility] [address] ([facility]) (test code = FOR[place]ATO Kaba [place], 1538) [address]: Data Communications Technician/Techni aldo ID = [id number] for BRENDA VENCES SARS-COV2/RT-PCR ([facility])2021-03-09 23:58:00 Test Item Value Reference Range Interpretation Comments SARS-COV2/RT-PCR (test Negative Not Detected, Negative, code = 4718598) See external report for linked test SARS-COV-2 PERFORMING LAB [facility] SHIV (test code = 7378666) Negative result for this test determines that [...] 564(g) of the Act.Fact Sheet for Healthcare Providers:https://www.Qonf/sites/default/files/product/documents/Fact_Shee b_WU_Hsupzlokj_Ojph_LLCA-GxE-8.pdfFact Sheet for Healthcare Patients:https://www.Qonf/sites/default/files/product/ documents/Iypj_Rqhis_Jttrzngx_Dizl_HTVF-FjH-4.pdfPerforming Laboratory:[facility], [place] [address]OQEY-LETJBUY METER 2021-03-09 17:34:00 Test Item Value Reference Range Interpretation Comments POC-GLUCOSE METER 97 mg/dL 70-110 : TESTED A T [facility] [address] ([facility]) (test code = FORTUNATO Kaba [facility], 1538) [address]: Data Communications Technician/Techni aldo ID = [id number] for ALBINO ROSS MR, ABDOMEN, [id number] 17:11:00Unlisted Reason for Exam - Click Yes and Enter Reason Below->NoPatient with hyperdense material seen in distal CBD on CTA performed [facility] [...] 12/29/2005 but appears chronic Signed: [facility] Verified Date/Time: 03/09/2021 17:11:18 Reading Location: [address] Transitional Reading Room MR abdomen without IV contrast [id number] 17:11:00 Interface, External Ris In - 03/09/2021 [...] Verified Date/Time: 03/09/2021 17:11:18 Reading Location: [address] [facility] [id number] 17:11:00 Interface, External Ris In - 03/09/2021 [...] Date/Time: 03/09/2021 17:11:18 Reading Location: [facility] C013 [facility] [id number] 17:11:00 Interface, External Ris In - 03/09/2021 [...] Verified Date/Time: 03/09/2021 17:11:18 Reading Location: [address] [facility] [id number] 17:11:00 Interface, External Ris In - 03/09/2021 [...] Aly Verified Date/Time: 03/09/2021 17:11:18 Reading Location: [address] Transitional [facility] [id number] 12:41:00 Test Item Value Reference Range Interpretation Comments POC-GLUCOSE METER 92 mg/dL 70-110 : TESTED A T [facility] 67[address] (BEAKER) (test code = FORTUNATO Kaba [facility], 1538) [address]: Data Communications Technician/Techni aldo ID = [id number] for TEZE NO, ALBINO Urinalysis w/Microscopic + Reflex to [id number] 11:21:00 Test Item Value Reference Range Interpretation Comments Color, UA (test code Light Yellow = 5778-6) Clarity, UA (test Clear code = 5767-9) Specific Junction, UA 1.033 1.001-1.035 (test code = 5811-5) pH, UA (test code = 5.5 5.0-8.0 5803-2) Protein, UA (test Negative Negative code = 57078-9) Glucose, UA (test Negative Negative code = 365) Ketones, UA (test Negative Negative code = 2514-8) Bilirubin, UA (test Negative Negative code = 16130-9) Blood, UA (test code Trace Negative A = 54221-3) Nitrite, UA (test Negative Negative code = 5802-4) Leukocytes, UA (test Negative Negative code = 5799-2) Urobilinogen, UA 0.2 mg/dL 0.2-1 (test code = 90295-1) RBC, UA (test code = 2 See_Comment [Autom ated 16498-7) message] The system which generated this result [...] Bacteria, UA (test None Seen code = 21949-0) Mucus (test code = Rare 8247-9) Squam Epithel, UA 1 See_Comment [Automate d (test code = 24154-9) messag e] The system which generated this result transmit lane reference range : /HPF. The reference range was not used to interpret this result as normal/abnormal . Crystals, Urine (test None Seen code = 79827-4) Specimen Source (test code = 2795) TORRES (test code = TORRES) Data Communications Technician ID - [auto]Data Communications Technician ID - tech Lab Interpretation Abnormal (test code = 63606-3) [facility] Reflex to Culture 2021-03-09 11:21:00 Test Item Value Reference Range Interpretation Comments Color, UA (test code Light Yellow = 5778-6) Clarity, UA (test Clear code = 5767-9) Specific Junction, UA 1.033 1.001-1.035 (test code = 5811-5) pH, UA (test code = 5.5 5.0-8.0 5803-2) Protein, UA (test Negative Negative code = 72818-0) Glucose, UA (test Negative Negative code = 365) Ketones, UA (test Negative Negative code = 2514-8) Bilirubin, UA (test Negative Negative code = 41450-1) Blood, UA (test code Trace Negative A = 21726-8) Nitrite, UA (test Negative Negative code = 5802-4) Leukocytes, UA (test Negative Negative code = 5799-2) Urobilinogen, UA 0.2 mg/dL 0.2-1 (test code = 86915-2) RBC, UA (test code = 2 See_Comment [Autom ated 37927-7) message] The system which generated this result [...] Bacteria, UA (test None Seen code = 90788-3) Mucus (test code = Rare 8247-9) Squam Epithel, UA 1 See_Comment [Automate d (test code = 34775-4) messag e] The system which generated this result transmit lane reference range : /HPF. The reference range was not used to interpret this result as normal/abnormal . Crystals, Urine (test None Seen code = 83675-8) Specimen Source (test code = 2795) TORRES (test code = TORRES) Data Communications Technician ID - [auto]Data Communications Technician ID - tech Lab Interpretation Abnormal (test code = 97710-2) [facility] + Reflex to Culture 2021-03-09 11:21:00 Test Item Value Reference Range Interpretation Comments Color, UA (test code Light Yellow = 5778-6) Clarity, UA (test Clear code = 5767-9) Specific Junction, UA 1.033 1.001-1.035 (test code = 5811-5) pH, UA (test code = 5.5 5.0-8.0 5803-2) Protein, UA (test Negative Negative code = 67246-9) Glucose, UA (test Negative Negative code = 365) Ketones, UA (test Negative Negative code = 2514-8) Bilirubin, UA (test Negative Negative code = 60048-3) Blood, UA (test code Trace Negative A = 53722-7) Nitrite, UA (test Negative Negative code = 5802-4) Leukocytes, UA (test Negative Negative code = 5799-2) Urobilinogen, UA 0.2 mg/dL 0.2-1 (test code = 32855-5) RBC, UA (test code = 2 See_Comment [Autom ated 53400-1) message] The system which generated this result [...] Bacteria, UA (test None Seen code = 82311-7) Mucus (test code = Rare 8247-9) Squam Epithel, UA 1 See_Comment [Automate d (test code = 77726-0) messag e] The system which generated this result transmit lane reference range : /HPF. The reference range was not used to interpret this result as normal/abnormal . Crystals, Urine (test None Seen code = 55019-9) Specimen Source (test code = 2795) TORRES (test code = TORRES) Data Communications Technician ID - [auto]Data Communications Technician ID - tech Lab Interpretation Abnormal (test code = 20537-3) [facility] + Reflex to Culture 2021-03-09 11:21:00 Test Item Value Reference Range Interpretation Comments Color, UA (test code Light Yellow = 5778-6) Clarity, UA (test Clear code = 5767-9) Specific Junction, UA 1.033 1.001-1.035 (test code = 5811-5) pH, UA (test code = 5.5 5.0-8.0 5803-2) Protein, UA (test Negative Negative code = 55703-4) Glucose, UA (test Negative Negative code = 365) Ketones, UA (test Negative Negative code = 2514-8) Bilirubin, UA (test Negative Negative code = 43885-7) Blood, UA (test code Trace Negative A = 22069-1) Nitrite, UA (test Negative Negative code = 5802-4) Leukocytes, UA (test Negative Negative code = 5799-2) Urobilinogen, UA 0.2 mg/dL 0.2-1 (test code = 52015-7) RBC, UA (test code = 2 See_Comment [Autom ated 73920-0) message] The system which generated this result [...] Bacteria, UA (test None Seen code = 50168-3) Mucus (test code = Rare 8247-9) Squam Epithel, UA 1 See_Comment [Automate d (test code = 35116-7) messag e] The system which generated this result transmit lane reference range : /HPF. The reference range was not used to interpret this result as normal/abnormal . Crystals, Urine (test None Seen code = 34871-5) Specimen Source (test code = 2795) TORRES (test code = TORRES) Data Communications Technician ID - [auto]Data Communications Technician ID - tech Lab Interpretation Abnormal (test code = 80276-3) [facility] URINE [id number] 11:21:00 Test Item Value Reference Range Interpretation [...] = 1521) SOURCE(BEAKER) (test code = 2795) Data Communications Technician ID - [auto]Data Communications Technician ID - techHEMOGLOBIN [id number] 10:22:00 Test Item Value Reference Range Interpretation Comments HEMOGLOBIN A1C (BEAKER) (test code = 6.1 % 4.3-6.1 368) [id number] 06:48:00 Test Item Value Reference Range Interpretation Comments Magnesium (test code = 2.1 mg/dL 1.6-2.6 58664-3) TORRES (test code = TORRES) Data Communications Technician ID - ELVIN W Lab Interpretation (test Normal code = 79803-2) [facility] 06:48:00 Test Item Value Reference Range Interpretation Comments Magnesium (test code = 2.1 mg/dL 1.6-2.6 10918-1) TORRES (test code = TORRES) Data Communications Technician ID - ELVIN W Lab Interpretation (test Normal code = 16556-1) [facility] 06:48:00 Test Item Value Reference Range Interpretation Comments Magnesium (test code = 2.1 mg/dL 1.6-2.6 84005-6) TORRES (test code = TORRES) Data Communications Technician ID - ELVIN W Lab Interpretation (test Normal code = 33487-1) [facility] 06:48:00 Test Item Value Reference Range Interpretation Comments Magnesium (test code = 2.1 mg/dL 1.6-2.6 87173-5) TORRES (test code = TORRES) Data Communications Technician ID - ELVIN W Lab Interpretation (test Normal code = 40616-6) [facility]OL[facility] [id number] 06:48:00 Test Item Value Reference Range Interpretation [...] S NOT APPLICABLE FOR DIALYSIS PATIEN TS. Data Communications Technician ID - ELVIN [id number] 06:48:00 Test Item Value Reference Range Interpretation Comments MAGNESIUM (BEAKER) (test code = 2.1 mg/dL 1.6-2.6 627) Data Communications Technician ID - ELVIN WHEPATIC FUNCTION [id number] 06:48:00 Test Item Value Reference Range Interpretation [...] (test code = 30 U/L 6-55 347) Data Communications Technician ID - ELVIN WPROTHROMBIN TIME/[id number] 06:32:00 Test Item Value Reference Range Interpretation Comments PROTIME (BEAKER) 12.9 seconds 11.9-14.2 (test code = 759) INR (BEAKER) (test 0.99 See_Comment [Automat ed message] code = 370) The system [employer] generated this result transmitted ref erence range: [...] code = 2801) MRI Brain wo contrast [id number] 16:25:00Patient Name: RIYA BLAKELY TRANDOB: 1950. Age: 67 years. Gender: Female.MR: [id number]. Location: [facility]. Provider: Hollie Osorio MD.EXAM: Brain [...] intracranial abnormality. Mild chronicmicroangiopathic ischemic gliosis. SL: [id number]--Rplo by: Finesse Dias MDDictated Date/time: 0 02/08/18 17:31Electronically Signed by: Finesse Dias MD 02/08/1817:40FINALREPORTUnIntermountain [facility]iciansH[facility] Brain w/wo contrast [id number] 13:39:00 Test Item Value Reference Range Interpretation Comments Brain w/wo contrast MRI Cancel Reason: Exam (test code = Brain w/wo Replaced contrast MRI) [facility]"
[2022-01-11] MEDS ORDERED: NA CHLORIDE 0.9% 1,000 ML ONE ×2 (13:11→13:15)
--- NOTE | 2022-01-11 13:17 | RAD REPORT ---
EXAM DESCRIPTION: CT - Abdomen Pelvis Wo Contrast - 01/11/2022 1:03 pm CLINICAL HISTORY: Abdominal pain, acute, nonlocalized COMPARISON: Abdomen Pelvis W Contrast dated 12/24/2021; Abdomen Pelvis W Contrast dated 11/03/2021 TECHNIQUE: Axial [address] imaging of the abdomen and pelvis was performed without IV contrast. No IV contrast was given because of allergy, abnormal renal function, patient refusal or physician re quest. No oral contrast was administered. All CT scans are performed using dose optimization technique as appropriate and may include automated exposure control or mA/KV adjustment according to patient size. FINDINGS: No suspicious findings in the lung bases. The liver, spleen and pancreas show no suspicious findings on non-contrast imaging. Gallbladder is ab sent. Pneumobilia is present in a pattern similar to prior imaging. No hydronephrosis or suspicious renal mass. No significant adrenal finding. Isodense renal masses an d pyelonephritis cannot be excluded in the absence of IV contrast. The urinary bladder is without sig nificant finding. No gastric dilatation gastric wall thickening. No dilated small bowel loops. No appendicitis findings are present. Large amount of stool is present distending or mildly dilating the rectum with the sigm oid colon full of stool. No acute colon process identified. No free air, free fluid or inflammatory stranding. No hernia, mass or bulky lymphadenopathy. No suspicious bony findings. Vertebroplasty has been performed on the 50% compression fracture of the L1 body. No new compression fractures seen. No new findings at L1. IMPRESSION: Non-contrast enhanced CT abdomen and pelvis imaging show no acute or emergent finding. No significant change from comparison. Full assessment is limited is the absence of IV contrast.
--- NOTE | 2022-01-11 13:22 | RAD REPORT ---
EXAM DESCRIPTION: CT - Head Brain Wo Cont - 01/11/2022 1:03 pm CLINICAL HISTORY: Mental status change, unknown cause, weakness COMPARISON: Head Brain Wo Cont dated 09/07/2019 TECHNIQUE: Axial 5 mm thick images of the head were obtained without IV contrast. All CT scans are performed using dose optimization technique as appropriate and may include automated exposure control or mA/KV adjustment according to patient size. FINDINGS: No intracranial hemorrhage, mass, edema or shift of mid-line structures. No cortical level infarction. No cortical edema or sulcal effacement identified. Atrophy changes and cerebral white ma tter chronic ischemic changes match comparison. No abnormal extra-axial fluid collections. Ventricles are in proportion to the volume loss. Arterial tree calcifications are present. Mastoid air cells and visualized portions of the paranasal sinuses are clear. No acute bony findings. IMPRESSION: Negative non-contrast CT head examination for acute finding. No significant change from comparison.
[2022-01-11 13:58] LABS: Urine Blood 2+ (Negative); Urine Glucose Negative (Negative); Urine Protein Negative (Negative); Urine Specific Gravity <=1.005 (1.005-1.030); Urine pH 5.5 (5.0-7.0)
[2022-01-11 14:01] LABS: SARS-COV-2 RT PCR NEGATIVE (NEGATIVE)
[2022-01-11 14:05] LABS: ALT/SGPT 35 U/L (12-78); AST/SGOT 30 U/L (15-37); Albumin 3.2 g/dL (3.4-5.0); Alkaline Phosphatase 46 U/L (45-117); BUN Blood Urea Nitrogen 28 mg/dL (7-18); Bicarbonate 27 mmol/L (21-32); Bilirubin Total 0.2 mg/dL (0.2-1.0); Glucose Level 94 mg/dL (74-106); Protein, Total 7.3 g/dL (6.4-8.2); Sodium Level 139 mmol/L (136-145)
[2022-01-11 14:06] LABS: Bilirubin Direct < 0.1 mg/dL (0-0.2)
[2022-01-11 14:07] LABS: Absolute Lymphocytes (CBC) 1.4 K/uL (0.7-4.9); Hematocrit 31.1 % (36.0-45.0); Lymphocytes % 13.6 % (15.3-44.8); RBC Red Blood Cell Count 3.36 M/uL (3.86-4.86)
[2022-01-11 14:13] LABS: Urine Bacteria <20 /HPF (<20)
[2022-01-11 14:14] LABS: Urine Mucus 1+ /HPF (NONE SEEN)
[2022-01-11 14:16] LABS: Barbiturates NEGATIVE (NEGATIVE); Benzodiazepines POSITIVE (NEGATIVE); Cocaine NEGATIVE (NEGATIVE); METHAMPHETAM NEGATIVE (NEGATIVE); Methadone NEGATIVE (NEGATIVE); Opiates NEGATIVE (NEGATIVE); Phencyclidine NEGATIVE (NEGATIVE); THC Cannibis NEGATIVE (NEGATIVE)
--- NOTE | 2022-01-11 14:27 | RAD REPORT ---
EXAM DESCRIPTION: RAD - Chest Single View - 01/11/2022 2:09 pm CLINICAL HISTORY: AMS, fever COMPARISON: Portable 12/30/2021 TECHNIQUE: AP portable chest image was obtained 01/11/2022 2:09 pm . FINDINGS: Lungs are clear. Interstitial pattern matches comparison. Heart and vasculature are normal . Mediastinum is distorted slightly dictation. No measurable pleural effusion and no pneumothorax. No acute bony abnormality seen. No acute aortic findings suspected. IMPRESSION: No acute cardiopulmonary process. No significant change from comparison study.
--- NOTE | 2022-01-11 15:29 | ER ---
Nurse's Notes [facility] Name: Alberto Botello Age: 71 yrs Sex: Female : 1950 Arrival Date: 01/11/2022 Time: 12:18 Bed 14 Private MD: Diagnosis: Muscle weakness (generalized);Constipation, unspecified;Dehydration Presentation: 01/11 12:24 Chief complaint: Patient's son or daughter states: hasnt had a BM in 5-6 days, states vg1 pt has been shaking hands and has been forgetting things; also states that Dr Jamison had pt stop hydrocodone about 5-6 days ago as well. Coronavirus screen: Vaccine status: Patient reports receiving the 2nd dose of the covid vaccine. Client denies travel out of the [place] in the last 14 days. Ebola Screen: Patient denies exposure to infectious person. Patient denies travel to an Ebola-affected area in the 21 days before illness onset. No acute neurological deficit is noted. Initial Sepsis Screen: Does the patient meet any 2 criteria? HR > 90 bpm. Does the patient have a suspected source of infection? No. Patient's initial sepsis screen is negative. Risk Assessment: Do you want to hurt yourself or someone else? Patient reports no desire to harm self or others. Onset of symptoms was January 06, 2022. 12:24 Method Of Arrival: Wheelchair vg1 12:24 Acuity: ART 3 vg1 Triage Assessment: 12:29 General: Appears uncomfortable, Behavior is cooperative. Pain: Denies pain. Noted to be vg1 grimacing. Neuro: Level of Consciousness is awake, alert, obeys commands, Oriented to person, place, time, situation. Historical: - Allergies: 12:29 No Known Allergies; vg1 - PMHx: 12:29 Anxiety; Chronic pain; Diabetes - NIDDM; Hepatitis; Hypertension; Osteoporosis; vg1 Pancreatitis; - Immunization history:: Client reports receiving the 2nd dose of the Covid vaccine. - Social history:: Smoking status: Patient denies any tobacco usage or history of. - Family history:: not pertinent. - Hospitalizations: : No recent hospitalization is reported. Screenin:30 Abuse screen: Denies threats or abuse. Denies injuries from another. Nutritional ld1 screening: No deficits noted. Tuberculosis screening: No symptoms or risk factors identified. Fall Risk None identified. Assessment: 13:30 VAN Scoring: Arm Drift: Patients demonstrates NO arm weakness. Patient is VAN Negative. ld1 Visual Disturbance: No visual disturbance noted. Aphasia: No aphasia noted. Neglect: No neglect noted. Patient has been NPO before screening. The patient is alert, and able to follow commands. The patient does not exhibit slurred or garbled speech. The patient is not exhibiting difficulty speaking. The patient does not exhibit difficulty understanding words. The patient is able to swallow own secretions with no drooling or need for suction. Patient tolerated one teaspoon of water. No drooling, immediate coughing, gurgling, or clearing of the throat was noted. The patient tolerated 90mL of water. No drooling, immediate coughing, gurgling, or clearing of the throat was noted. The patient passed the bedside swallow screening. Oral medications may be given as ordered. Contact Physician for further diet orders. Provider notified of bedside swallow screening results: Xavi Ko MD. T-PA (Activase) Screening:. General: Appears in no apparent distress. comfortable, Behavior is calm, cooperative, appropriate for age. Pain: Denies pain. Neuro: Monreal Agitation-Sedation Scale (RASS): 0 - Alert and Calm Level of Consciousness is awake, alert, obeys commands, Oriented to person, place, time, situation. Cardiovascular: Capillary refill < 3 seconds Patient's skin is warm and dry. Rhythm is regular. Respiratory: Airway is patent Respiratory effort is even, unlabored. GI: Abdomen is round non-distended. : No signs and/or symptoms were reported regarding the genitourinary system. EENT: No signs and/or symptoms were reported regarding the EENT system. Derm: No signs and/or symptoms reported regarding the dermatologic system. Musculoskeletal: No signs and/or symptoms reported regarding the musculoskeletal system. 14:35 Reassessment: Patient appears in no apparent distress at this time. Patient is alert, ld1 oriented x 3, equal unlabored respirations, skin warm/dry/pink. 16:02 Reassessment: Patient appears in no apparent distress at this time. No changes from ld1 previously documented assessment. Patient and/or family updated on plan of care and expected duration. Pain level reassessed. Vital Signs: 12:24 BP 102 / 68; Pulse 105; Resp 18; Temp 99.1(TE); Pulse Ox 98% on R/A; Weight 61.23 kg; vg1 Height 5 ft. 0 in. (152.40 cm); Pain 0/10; 13:30 BP 124 / 74; Pulse 79; Resp 18; Pulse Ox 100% on R/A; Pain 0/10; ld1 14:35 BP 160 / 92; Pulse 92; Resp 18; Pulse Ox 100% on R/A; ld1 16:02 BP 155 / 89; Pulse 84; Resp 18; Pulse Ox 100% on R/A; ld1 12:24 Body Mass Index 26.37 (61.23 kg, 152.40 cm) vg1 NIH Stroke Scale Scores: 13:30 NIHSS Score: 0 ld1 ED Course: 12:18 Patient arrived in ED. ds1 12:28 Xavi Ko MD is Attending Physician. rn 12:28 Triage completed. vg1 12:29 Arm band placed on. vg1 13:03 Jenifer Hernandez, RN is Primary Nurse. ld1 13:04 CT Head Brain wo Cont In Process Unspecified. EDMS 13:04 CT Abd/Pelvis - Without Contrast In Process Unspecified. EDMS 13:04 COVID-19/FLU A+B (Document "Date of Onset" if Symptomatic) Sent. ld1 13:30 Patient has correct armband on for positive identification. Placed in gown. Bed in low ld1 position. Call light in reach. Side rails up X2. breast surgeon on. Pulse ox on. NIBP on. Door closed. Noise minimized. Warm blanket given. 13:30 No provider procedures requiring assistance completed. Inserted saline lock: 20 gauge ld1 in left antecubital area, using aseptic technique. Blood collected. 14:11 XRAY Chest (1 view) In Process Unspecified. EDMS 16:02 IV discontinued, intact, bleeding controlled, No redness/swelling at site. ld1 Administered Medications: 13:30 Drug: NS 0.9% 1000 ml Route: IV; Rate: 1000 ml; Site: left antecubital; ld1 Outcome: 15:29 Discharge ordered by . rn 16:03 Patient left the ED. ld1 NIH Stroke Scale - NIH Stroke Score Date: 01/11/2022 Time: 13:30 Total Score = 0 1a. Level of Consciousness (LOC) - 0(Alert) 1b. Level of Consciousness (LOC) (Month \\T\\ Age) - 0(Both) 1c. LOC Commands (Open \\T\\ Closes Eyes/Thai Masseur) - 0(Both) 2. Best Gaze (Lateral Gaze Paresis) - 0(Normal) 3. Visual Field Loss - 0(No visual loss) 4. Facial Palsy - 0(Normal) 5a. Left Arm: Motor (10-second hold) - 0(No drift) 5b. Right Arm: Motor (10-second hold) - 0(No drift) 6a. Left Leg: Motor (5-second hold - always test supine) - 0(No drift) 6b. Right Leg: Motor (5-second hold - always test supine) - 0(No drift) 7. Limb Ataxia (finger/nose \\T\\ heel/chapa - test with eyes open) - 0(Absent) 8. Sensory Loss (pinprick arms/legs/face) - 0(Normal) 9. Best Language: Aphasia (description/naming/reading) - 0(No aphasia) 10. Dysarthria (speech clarity - read or repeat words) - 0(Normal) 11. Extinction and Inattention (visual/tactile/auditory/spatial/personal) - 0(No abnormality) Initials: ld1 Signatures: Dispatcher [employer] Abigail Gil ds1 Xavi Ko MD MD rn Garcia, Victoria, RN RN vg1 Jenifer Hernandez RN RN ld1
--- NOTE | 2022-01-11 15:29 | EDPHYS ---
Physician Documentation [facility] Name: Alberto Botello Age: 71 yrs Sex: Female : 1950 Arrival Date: 01/11/2022 Time: 12:18 Bed 14 Private MD: ED Physician Xavi Ko HPI: 01/11 13:06 This 71 yrs old Female presents to ER via Wheelchair with complaints of Weakness, rn Altered Mental Status. 13:06 The patient presents with confusion. Onset: The symptoms/episode began/occurred 1 rn week(s) ago. Possible causes: unknown. Associated signs and symptoms: Pertinent positives: confusion, weakness, Pertinent negatives: abdominal pain, chest pain, headache, seizure, shortness of breath. Current symptoms: In the emergency department the patient's symptoms are unchanged from the initial presentation. The patient has experienced similar episodes in the past. The patient has been recently seen by a physician:. Family member reports taken off hydrocodone 1 week ago, put on suboxone, states since then has been acting different, shaking, constipated, generalized weakness. No vomiting/diarrhea. Pt denies chest pain/sob/cough/abd pain. . Historical: - Allergies: 12:29 No Known Allergies; vg1 - PMHx: 12:29 Anxiety; Chronic pain; Diabetes - NIDDM; Hepatitis; Hypertension; Osteoporosis; vg1 Pancreatitis; - Immunization history:: Client reports receiving the 2nd dose of the Covid vaccine. - Social history:: Smoking status: Patient denies any tobacco usage or history of. - Family history:: not pertinent. - Hospitalizations: : No recent hospitalization is reported. ROS: 13:06 Constitutional: Negative for fever, chills, and weight loss, Eyes: Negative for injury, rn pain, redness, and discharge, ENT: Negative for injury, pain, and discharge, Neck: Negative for injury, pain, and swelling, Cardiovascular: Negative for chest pain, palpitations, and edema, Respiratory: Negative for shortness of breath, cough, wheezing, and pleuritic chest pain, Abdomen/GI: Negative for abdominal pain, nausea, vomiting, diarrhea Back: Negative for injury and pain, : Negative for injury, bleeding, discharge, and swelling, MS/Extremity: Negative for injury and deformity, Skin: Negative for injury, rash, and discoloration, Neuro: Negative for headache, numbness, tingling, and seizure. Exam: 13:06 Constitutional: This is a well developed, well nourished patient who is awake, alert, rn and in no acute distress. Appears uncomfortable with mild tachypnea and grimaces but denies pain or discomfort. Head/Face: Normocephalic, atraumatic. ENT: + dry MM Cardiovascular: tachycardic, regular Respiratory: Mild tachypnea, no retractions, speaking full sentences. Abdomen/GI: soft, non-tender, no masses Skin: Warm, dry MS/ Extremity: Pulses equal, no cyanosis. Neuro: Awake and alert, GCS 15. Cranial nerves II-XII grossly intact. Motor strength 4/5 in all extremities. Sensory grossly intact. + tongue fasciculations. Vital Signs: 12:24 BP 102 / 68; Pulse 105; Resp 18; Temp 99.1(TE); Pulse Ox 98% on R/A; Weight 61.23 kg; vg1 Height 5 ft. 0 in. (152.40 cm); Pain 0/10; 13:30 BP 124 / 74; Pulse 79; Resp 18; Pulse Ox 100% on R/A; Pain 0/10; ld1 14:35 BP 160 / 92; Pulse 92; Resp 18; Pulse Ox 100% on R/A; ld1 16:02 BP 155 / 89; Pulse 84; Resp 18; Pulse Ox 100% on R/A; ld1 12:24 Body Mass Index 26.37 (61.23 kg, 152.40 cm) vg1 NIH Stroke Scale Scores: 13:30 NIHSS Score: 0 ld1 MDM: 12:28 Patient medically screened. rn 13:13 ED course: Family reports no BM for 5 days. . rn 13:14 ED course: CT ordered to rule out obstruction/ileus 2/2 chronic opioid use and no BM rn for 5 days. No acute findings per Dr. Alvarez.. 15:23 Differential Diagnosis: electrolyte abnormality, UTI, volume depletion. rn 15:27 Data reviewed: vital signs, nurses notes, lab test result(s), radiologic studies, CT rn scan, plain films, and as a result, I will discharge patient. Counseling: I had a detailed discussion with the patient and/or guardian regarding: the historical points, exam findings, and any diagnostic results supporting the discharge/admit diagnosis, lab results, radiology results, the need for outpatient follow up, to return to the emergency department if symptoms worsen or persist or if there are any questions or concerns that arise at home. Response to treatment: the patient's symptoms have mildly improved after treatment, and as a result, I will discharge patient. Special discussion: I discussed with the patient/guardian in detail that at this point there is no indication for admission to the hospital. It is understood, however, that if the symptoms persist or worsen the patient needs to return immediately for re-evaluation. Based on the history and exam findings, there is no indication for further emergent testing or inpatient evaluation. I discussed with the patient/guardian the need to see the primary care provider for further evaluation of the symptoms. ED course: No acute findings on w/u or imaging. Stable vitals. May be adverse reaction or mild withdrawal given taken off hydrocodone, and switched to Suboxone. Will dc home with instructions to f/u with pcp for further management. . 01/11 12:39 Order name: CBC with Diff; Complete Time: 14: rn 01/11 12:39 Order name: Basic Metabolic Panel; Complete Time: 14: rn 01/11 12:39 Order name: Urine Drug Screen; Complete Time: 14: rn 01/11 12:39 Order name: Urine Microscopic Only; Complete Time: 14: rn 01/11 12:39 Order name: LFT's; Complete Time: 14: rn 01/11 12:39 Order name: COVID-19/FLU A+B (Document "Date of Onset" if Symptomatic); Complete Time: rn 14:01/11 12:39 Order name: CT Head Brain wo Cont; Complete Time: 13:47 rn 01/11 12:39 Order name: IV Start; Complete Time: 13:30 rn 01/11 12:39 Order name: CT Abd/Pelvis - Without Contrast; Complete Time: 13:47 rn 01/11 12:40 Order name: XRAY Chest (1 view); Complete Time: 14:29 rn 01/11 12:40 Order name: Blood Culture Adult (2) rn 01/11 12:40 Order name: Procalcitonin; Complete Time: 14:43 rn 01/11 13:58 Order name: Urine Dipstick-Ancillary; Complete Time: 14:26 EDMS 01/11 12:39 Order name: Urine Dipstick-Ancillary (obtain specimen); Complete Time: 13:57 rn 01/11 12:39 Order name: Cardiac monitoring; Complete Time: 13:04 rn 01/11 12:39 Order name: O2 Sat Monitoring; Complete Time: 13:04 rn Administered Medications: 13:30 Drug: NS 0.9% 1000 ml Route: IV; Rate: 1000 ml; Site: left antecubital; ld1 Disposition Summary: 01/11/22 15:29 Discharge Ordered Location: Home rn Problem: an ongoing problem rn Symptoms: have improved rn Condition: Stable rn Diagnosis - Muscle weakness (generalized) rn - Constipation, unspecified rn - Dehydration rn Followup: rn - With: Private Physician - When: As needed - Reason: Recheck today's complaints, Re-evaluation by your physician Discharge Instructions: - Discharge Summary Sheet rn - Constipation, Adult rn - Dehydration, Adult rn - Weakness rn Forms: - Medication Reconciliation Form rn - Thank You Letter rn - 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 Level of Consciousness (LOC) - 0(Alert) 1b. Level of Consciousness (LOC) (Month \\T\\ Age) - 0(Both) 1c. LOC Commands (Open \\T\\ Closes Eyes/Comprehensive Ophthalmologist) - 0(Both) 2. Best Gaze (Lateral Gaze Paresis) - 0(Normal) 3. Visual Field Loss - 0(No visual loss) 4. Facial Palsy - 0(Normal) 5a. Left Arm: Motor (10-second hold) - 0(No drift) 5b. Right Arm: Motor (10-second hold) - 0(No drift) 6a. Left Leg: Motor (5-second hold - always test supine) - 0(No drift) 6b. Right Leg: Motor (5-second hold - always test supine) - 0(No drift) 7. Limb Ataxia (finger/nose \\T\\ heel/chapa - test with eyes open) - 0(Absent) 8. Sensory Loss (pinprick arms/legs/face) - 0(Normal) 9. Best Language: Aphasia (description/naming/reading) - 0(No aphasia) 10. Dysarthria (speech clarity - read or repeat words) - 0(Normal) 11. Extinction and Inattention (visual/tactile/auditory/spatial/personal) - 0(No abnormality) Initials: ld1 Signatures: Dispatcher [employer] EDXavi Albarado MD MD rn Eleonora Portillo RN RN vg1 Jenifer Hernandez RN RN ld1
[2022-01-11 16:58] VITALS: TEMP 99.1
[2022-01-11 17:00] VITALS: O2SAT 100
[2022-01-11 17:06] VITALS: BP 155/89
--- NOTE | 2022-01-12 10:52 | EKG ---
Test Date: 2022-01-11 Test Time: 12:46:49 Floorhand: ESTER MEASUREMENT RESULTS: Intervals: Rate: 98 NH: 112 QRSD: 78 QT: 328 QTc: 418 [place]: P: 45 NH: 112 QRS: 30 T: 82 INTERPRETIVE STATEMENTS: Normal sinus rhythm RSR' or QR pattern in V1 suggests right ventricular conduction delay Borderline ECG Compared to ECG 12/30/2021 17:45:03 RSR' in V1 or V2 now present Electronically Signed On 01-12-22 10:50:24 CDT by Darrin Saldaña
--- NOTE | 2022-01-12 10:52 | EKG ---
Test Date: 2022-01-11 Test Time: 13:54:13 Sales And Service Consultant: PREETHI MEASUREMENT RESULTS: Intervals: Rate: 86 ND: 128 QRSD: 76 QT: 352 QTc: 421 [place]: P: 31 ND: 128 QRS: 2 T: 46 INTERPRETIVE STATEMENTS: Normal sinus rhythm RSR' or QR pattern in V1 suggests right ventricular conduction delay Septal infarct, age undetermined Abnormal ECG Compared to ECG 01/11/2022 12:46:49 Myocardial infarct finding now present Electronically Signed On 01-12-22 10:50:20 CDT by Darrin Saldaña
== END 2022-01-11 16:03 | disposition home or self-care (01) ==
LOC: ER 12:15
DX: E86.0 Dehydration (principal); K59.00 Constipation, unspecified; E11.9 Type 2 diabetes mellitus without complications; I10 Essential (primary) hypertension; Z20.822 Contact with and (suspected) exposure to COVID-19
CPT/HCPCS: 93005 ×2; 87040 ×2; 85025; 80048; 36415; 80076; 84145; 0240U; 80307; 70450; 74176; 71045; J7030 ×2; 81003; 81015; 99284

== ENCOUNTER 2022-04-06 08:55 | Emergency (ER) | payer OTHER ==
--- OUTSIDE RECORDS SUMMARY | 2022-04-06 09:04 | XMS REPORT | Continuity of Care Document ---
:1950 Author Organization [facility] t Address [address] [place] [address] Care Team Providers Name Role Phone ALEJANDRA, [...] Expiration Date Brandy haywood MEDICARE A B [id number] 2021 00:00:00 MEDICAID OF [place] [id number] MEDICARE PART A [id number] \\T\\ B - MEDICARE [facility]-MEDICAID - [id number] MEDICAID MEDICARE PART A [id number] 2003 \\T\\ B 00:00:00 [place] [id number] 2013 00:00:00 Problems Condition Condition Condition Status Onset Resolution Last Treating Co mments Source Name Details Category Date Date Treatment Clinician Date Common Common Disease Active [facility] bile duct bile duct 8-24 [facility] Abdominal Abdominal Disease Active [facility] pain pain 6- [facility] 00:[facility]: [facility] 00 Center Closed Closed Disease Active [facility] fracture fracture 03-18 ity of of first of first 00:00: [place] lumbar lumbar 00 Medical vertebra vertebra Branch with with routine routine healing healing New onset New onset Problem Active [facility] of of HL7.CCDAR2 Physic i headaches headaches ans after age after age [age] History of History of Problem Resolve [facility] Chronic Chronic HL7.CCDAR2 d Phys ici midline midline ans low back low back pain pain without without sciatica sciatica Medication Medication Problem Active U T overuse overuse HL7.CCDAR2 Phys ici headache headache ans Hypertensi Hypertensi Disease Active [facility] on on [facility] Diabetes Diabetes Disease Active [facility] mellitus mellitus [facility] Allergies, Adverse Reactions, Alerts Allergy Allergy Status Severity Reaction(s) Onset Inactive Treating Comm ents Source Name Type Date Date Clinician NO KNOWN Allergy Active [facility] NO KNOWN Drug Active Univers ALLERGIE Class ity of [facility] Family History Family Member Diagnosis Comments Start Date Stop Date Source Father Family history of lung [facility] cancer Social History Social Habit Start Date Stop Date Quantity Comments Source Exposure to Not sure [facility] SARS-CoV-2 (event) Medica l Branch Tobacco use and 2021-05-07 2021-05-[address] [facility] Jasmyn kes exposure 00:00:00 00:00:00 Medical Center Alcohol intake 2016-03-18 2016-03-18 0 /d [facility] 00:00:00 00:00:00 Medical Branch Sex [birth year] [facility] [place] 00:00:00 00:00:00 Medical Branch Smoking Status Start Date Stop Date Source Never smoker [facility] Medications Ordered Filled Start Stop Current Ordering Indication Dosage Frequency Signature Comments Components Source Medication Medication Date Date Medication? Clinician (SIG) Name Name iopamidol 2020-09 202- No [id number] 100mL 100 mL, Univers (ISOVUE 09-23 Intravenou ity o f 370-500 mL) 17:55: 17:55 s, ONCE, 1 [place] injection 00 :00 dose, On Medica l 100 mL Tue [place] 07/24/21 at 1215, Routine ondansetron 2020-09- No 4mg 4 mg, Slow Univers (ZOFRAN 09-23 IV Push, ity of (PF)) 17:45: 16:38 ONCE, 1 [place] injection 4 00 :00 dose, On Medi josephine mg Tue [place] 07/24/21 at 1145, Routine morpHINE 2020-09 Yes 4mg 4 mg, Slow Uni vers injection 4 09-23 IV Push, ity of mg 16:30: Q4HPRN, [place] 24 Starting Medical on Tue [place] 07/24/21 at 1030, Until Discontinu ed, Routine, Pain (scale 7-10) ALPRAZolam Yes 2mg Take [address] (XANAX) 2 8-26 by mouth [facility] MG tablet 10:59: every Medical 53 night as Center needed for Sleep. pantoprazol Yes 40mg QD Take [address] [facility] e 8-26 by mouth [facility]ukes (PROTONIX) 10:59: daily. Medic al 40 MG 53 Center tablet citalopram Yes 20mg QD Take [address] (CeleXA) 20 8-26 by mouth Luke s MG tablet 10:59: daily. Medica l 53 Center risperiDONE Yes .5mg QD Take 0.[address] (RisperDAL) 8-26 mg by [facility]ukes 0.5 MG 10:59: mouth Medical tablet 53 nightly. Center traMADoL Yes 50mg Take [address] (ULTRAM) 50 8-26 by mouth Luke s mg tablet 10:59: every 8 Medic al 53 (eight) Center hours as needed for Pain. famotidine Yes 20mg Q.5D Take [address] (PEPCID) 20 8-26 by mouth 2 Jasmyn kes MG tablet 10:59: (two) Medical 53 times Center daily. omega-3 Yes 2g Q.5D Take [address] fatty 8-26 by mouth 2 [facility]ukes acids-fish 10:59: (two) Medica l oil 53 times Center 340-1,000 daily. mg Cap per capsule cholecalcif Yes 5000U QD Take 5,[address] slim 8-26 Units by Lukes (VITAMIN 10:59: mouth Medical D3) 25 mcg 53 daily. Center (1,000 unit) tablet lisinopriL Yes 10mg QD Take [address] (PRINIVIL,Z 8-26 by mouth Luke s ESTRIL) 10 10:59: daily. Medic al MG tablet 53 Center linaCLOtide Yes 145ug Take [address] (Linzess) 8-26 mcg by [facility]ukes 145 mcg Cap 10:59: mouth Medic al 53 every Center morning before breakfast. lubiproston Yes 24ug QD Take [address] e (AMITIZA) 8-26 mcg by Lukes 24 MCG 10:59: mouth Medical capsule 53 daily. [place] alendronate Yes 70mg Take [address] (FOSAMAX) 8-26 by mouth [facility]ukes 70 MG 10:59: every 7 Medical tablet 53 days Take Center in the morning with a full glass of water, on an empty stomach, and do not take anything else by mouth or lie down for the next 30 min. . HYDROcodone Yes 1{tbl} Q.[id number] Take [address] -acetaminop 8-26 [id number] tablet by Lukes hen (NORCO 10:59: 3D mouth 3 Medi josephine 5-325) 53 (three) Center 5-325 mg times per tablet daily. ursodioL Yes 500mg QD Take [address] (ACTIGALL) 8-26 mg by Lukes 500 MG 10:59: mouth Medical tablet 53 daily. Center ALPRAZolam Yes 2mg Take [address] (XANAX) 2 8-26 by mouth [facility]ukes MG tablet 10:59: every Medical 53 night as Center needed for Sleep. pantoprazol Yes 40mg QD Take [address] [facility] e 8-26 by mouth Lukes (PROTONIX) 10:59: daily. Medic al 40 MG 53 Center tablet citalopram Yes 20mg QD Take [address] (CeleXA) 20 8-26 by mouth Luke s MG tablet 10:59: daily. Medica l 53 Center risperiDONE Yes .5mg QD Take 0.[address] (RisperDAL) 8-26 mg by Lukes 0.5 MG 10:59: mouth Medical tablet 53 nightly. Center traMADoL Yes 50mg Take [address] [address] (ULTRAM) 50 8-26 by mouth Luke s mg tablet 10:59: every 8 Medic al 53 (eight) Center hours as needed for Pain. famotidine Yes 20mg Q.5D Take [address] (PEPCID) 20 8-26 by mouth 2 Jasmyn kes MG tablet 10:59: (two) Medical 53 times Center daily. omega-3 Yes 2g Q.5D Take [address] fatty 8-26 by mouth 2 Lukes acids-fish 10:59: (two) Medica l oil 53 times Center 340-1,000 daily. mg Cap per capsule cholecalcif Yes 5000U QD Take 5,[address] slim 8-26 Units by Lukes (VITAMIN 10:59: mouth Medical D3) 25 mcg 53 daily. Center (1,000 unit) tablet lisinopriL Yes 10mg QD Take [address] (PRINIVIL,Z 8-26 by mouth Luke s ESTRIL) 10 10:59: daily. Medic al MG tablet 53 Center linaCLOtide Yes 145ug Take [address] (Linzess) 8-26 mcg by Lukes 145 mcg Cap 10:59: mouth Medic al 53 every Center morning before breakfast. lubiproston Yes 24ug QD Take [address] e (AMITIZA) 8-26 mcg by Lukes 24 MCG 10:59: mouth Medical capsule 53 daily. Center alendronate Yes 70mg Take [address] [address] (FOSAMAX) 8-26 by mouth [facility]ukes 70 MG 10:59: every 7 Medical tablet 53 days Take Center in the morning with a full glass of water, on an empty stomach, and do not take anything else by mouth or lie down for the next 30 min. . HYDROcodone Yes 1{tbl} Q.[id number] Take [address] -acetaminop 8-26 [id number] tablet by Lukes hen (NORCO 10:59: 3D mouth 3 Medi josephine 5-325) 53 (three) Center 5-325 mg times per tablet daily. ursodioL Yes 500mg QD Take [address] (ACTIGALL) 8-26 mg by Lukes 500 MG 10:59: mouth Medical tablet 53 daily. Center ALPRAZolam Yes 2mg Take [address] (XANAX) 2 8-26 by mouth [facility]ukes MG tablet 10:59: every Medical 53 night as Center needed for Sleep. pantoprazol Yes 40mg QD Take [address] [facility] e 8-26 by mouth [facility]ukes (PROTONIX) 10:59: daily. Medic al 40 MG 53 Center tablet citalopram Yes 20mg QD Take [address] (CeleXA) 20 8-26 by mouth Luke s MG tablet 10:59: daily. Medica l 53 Center risperiDONE Yes .5mg QD Take 0.[address] (RisperDAL) 8-26 mg by Lukes 0.5 MG 10:59: mouth Medical tablet 53 nightly. Center traMADoL Yes 50mg Take [address] (ULTRAM) 50 8-26 by mouth Luke s mg tablet 10:59: every 8 Medic al 53 (eight) Center hours as needed for Pain. famotidine Yes 20mg Q.5D Take [address] (PEPCID) 20 8-26 by mouth 2 Jasmyn kes MG tablet 10:59: (two) Medical 53 times Center daily. omega-3 Yes 2g Q.5D Take [address] [facility] fatty 8-26 by mouth 2 Lukes acids-fish 10:59: (two) Medica l oil 53 times Center 340-1,000 daily. mg Cap per capsule cholecalcif Yes 5000U QD Take 5,[address] slim 8-26 Units by Lukes (VITAMIN 10:59: mouth Medical D3) 25 mcg 53 daily. Center (1,000 unit) tablet lisinopriL Yes 10mg QD Take [address] (PRINIVIL,Z 8-26 by mouth Luke s ESTRIL) 10 10:59: daily. Medic al MG tablet 53 Center linaCLOtide Yes 145ug Take [address] (Linzess) 8-26 mcg by Lukes 145 mcg Cap 10:59: mouth Medic al 53 every Center morning before breakfast. lubiproston Yes 24ug QD Take [address] e (AMITIZA) 8-26 mcg by Lukes 24 MCG 10:59: mouth Medical capsule 53 daily. [place] alendronate Yes 70mg Take [address] (FOSAMAX) 8-26 by mouth [facility]ukes 70 MG 10:59: every 7 Medical tablet 53 days Take Center in the morning with a full glass of water, on an empty stomach, and do not take anything else by mouth or lie down for the next 30 min. . HYDROcodone Yes 1{tbl} Q.[id number] Take [address] -acetaminop 8-26 [id number] tablet by [facility]ukes hen (NORCO 10:59: 3D mouth 3 Medi josephine 5-325) 53 (three) Center 5-325 mg times per tablet daily. ursodioL Yes 500mg QD Take [address] (ACTIGALL) 8-26 mg by Lukes 500 MG 10:59: mouth Medical tablet 53 daily. [place] ALPRAZolam Yes 2mg Take [address] (XANAX) 2 8-26 by mouth Lukes MG tablet 09:40: every Medical 47 night as Center needed for Sleep. pantoprazol Yes 40mg QD Take [address] e 8-26 by mouth Lukes (PROTONIX) 09:40: daily. Medic al 40 MG 47 Center tablet citalopram Yes 20mg QD Take [address] (CeleXA) 20 8-26 by mouth Luke s MG tablet 09:40: daily. Medica l 47 Center risperiDONE Yes .5mg QD Take 0.[address] (RisperDAL) 8-26 mg by Lukes 0.5 MG 09:40: mouth Medical tablet 47 nightly. Center traMADoL Yes 50mg Take [address] (ULTRAM) 50 8-26 by mouth Luke s mg tablet 09:40: every 8 Medic al 47 (eight) Center hours as needed for Pain. famotidine Yes 20mg Q.5D Take [address] (PEPCID) 20 8-26 by mouth 2 Jasmyn kes MG tablet 09:40: (two) Medical 47 times Center daily. omega-3 Yes 2g Q.5D Take [address] fatty 8-26 by mouth 2 Lukes acids-fish 09:40: (two) Medica l oil 47 times Center 340-1,000 daily. mg Cap per capsule cholecalcif Yes 5000U QD Take 5,[address] slim 8-26 Units by Lukes (VITAMIN 09:40: mouth Medical D3) 25 mcg 47 daily. Center (1,000 unit) tablet lisinopriL Yes 10mg QD Take [address] (PRINIVIL,Z 8-26 by mouth Luke s ESTRIL) 10 09:40: daily. Medic al MG tablet 47 Center linaCLOtide Yes 145ug Take [address] (Linzess) 8-26 mcg by Lukes 145 mcg Cap 09:40: mouth Medic al 47 every Center morning before breakfast. lubiproston Yes 24ug QD Take [address] [facility] (AMITIZA) 8-26 mcg by Lukes 24 MCG 09:40: mouth Medical capsule 47 daily. [place] alendronate Yes 70mg Take [address] (FOSAMAX) 8-26 by mouth [facility]ukes 70 MG 09:40: every 7 Medical tablet 47 days Take Center in the morning with a full glass of water, on an empty stomach, and do not take anything else by mouth or lie down for the next 30 min. . HYDROcodone Yes 1{tbl} Q.[id number] Take [address] -acetaminop 8-26 [id number] tablet by Lukes hen (NORCO 09:40: 3D mouth 3 Medi josephine 5-325) 47 (three) Center 5-325 mg times per tablet daily. ursodioL Yes 500mg QD Take [address] (ACTIGALL) 8-26 mg by Lukes 500 MG 09:40: mouth Medical tablet 47 daily. Center meclizine Yes [facility] (ANTIVERT) 6-21 [facility] 25 mg 00:00: Medical tablet 00 Center meclizine Yes [facility] (ANTIVERT) 6-21 [facility] 25 mg 00:00: Medical tablet 00 Center meclizine Yes [facility] (ANTIVERT) 6-21 [facility] 25 mg 00:00: Medical tablet 00 Center meclizine Yes [facility] (ANTIVERT) 6-21 [facility] 25 mg 00:00: Medical tablet 00 [place] Nortriptyli Nortriptyli Yes HOLLIE TAKE 1 UT ne HCl - 25 ne HCl - 25 5-30 DOMENICO M.D. CAPSULE AT [facility] MG Oral MG Oral 00:00: BEDTIME. ans Capsule Capsule 00 Hemocyte Hemocyte Yes R.N. UT Plus 106-1 Plus 106-1 5-23 Phy sici MG Oral MG Oral 00:00: ans Capsule Capsule 00 Lisinopril Lisinopril Yes R.N. Q0.5D TAKE 1 UT 10 MG Oral 10 MG Oral 5-23 TABLET P hysici Tablet Tablet 00:00: TWICE ans 00 DAILY. MetFORMIN MetFORMIN Yes R.N. .5 Q0.5D TAKE 0.5 UT HCl - 850 HCl - 850 5-23 TABLET Phy sici MG Oral MG Oral 00:00: TWICE ans Tablet Tablet 00 DAILY Vitamin D3 Vitamin D3 Yes R.N. TAKE UT 5000 UNIT 5000 UNIT 5-23 DIRECTED. [facility] Oral Oral 00:00: ans Capsule Capsule 00 ALPRAZolam ALPRAZolam Yes R.N. TAKE 1 UT 2 MG Oral 2 MG Oral 5-23 TABLET AT [facility] Tablet Tablet 00:00: BEDTIME. ans 00 Omeprazole Omeprazole Yes R.N. 1 QD TAKE 1 UT 40 MG Oral 40 MG Oral 5-23 CAPSULE [facility] Capsule Capsule 00:00: DAILY ans Delayed Delayed 00 Release Release Morphine Morphine Yes R.N. 1.5 Q0.5D TAKE 1.5 UT Sulfate 30 Sulfate 30 5-23 TABLET P hysici MG Oral MG Oral 00:00: TWICE ans Tablet Tablet 00 DAILY MethylPREDN MethylPREDN Yes HOLLIE Medrol UT ISolone 4 ISolone 4 5-23 DOMENICO M.DKenrick dose lior Physici MG Oral MG Oral 00:00: (24 mg ans Tablet Tablet 00 with Therapy Therapy tapering Pack Pack dose to 4 mg over 6 days) MDD:24mg morphine Yes 30mg Take 30 mg Uni vers (AVINZA) 30 707 by mouth ity of mg 24 hr 08:12: daily. [place] capsule 18 Medical Branch ALPRAZolam Yes 2mg [...] Immunizations Ordered Filled Immunization Date Status Comments [facility] Immunization Name Name SARS-COV-2 COVID-19 2020-11-11 Completed Unive rsity of PFIZER VACCINE 00:00:00 [facility] SARS-COV-2 COVID-19 2020-10-21 Completed Unive rsity of PFIZER VACCINE 00:00:00 [facility] Vital Signs Vital Name Observation Time Observation Value Comments Source WEIGHT 2021-03-10 62.596 kg 11:08:00 Systolic blood 2021-07-24 144 mm[Hg] [facility] pressure 19:28:00 [facility] Diastolic blood 2021-07-24 90 mm[Hg] [place] o f pressure 19:28:00 [facility] Heart rate 2021-07-24 87 /min [facility] 19:28:00 [facility] Respiratory rate 2021-07-24 18 /min [facility] 19:28:00 [facility] Oxygen saturation 2021-07-24 97 /min [facility] in Arterial blood 19:28:00 [facility] by Pulse oximetry [place] Body temperature 2021-07-24 37 Carolann [facility] 16:20:00 [facility] Body weight 2021-07-24 61.236 kg [facility] 16:20:00 [facility] BMI 2021-07-24 25.51 kg/m2 [facility] 16:20:00 [facility] HEIGHT 2021-05-04 152.4 cm 17:29:00 WEIGHT 2021-05-04 61.689 kg 17:29:00 HEIGHT 2021-05-04 152.4 cm 17:29:00 WEIGHT 2021-05-04 61.689 kg 17:29:00 WEIGHT 2021-03-10 62.596 kg 11:08:00 Systolic blood 2021-05-07 156 mm[Hg] [facility] pressure 08:00:00 [facility] Diastolic blood 2021-05-07 74 mm[Hg] [facility] pressure 08:00:00 [facility] Heart rate 2021-05-07 76 /min [facility] 08:00:00 [facility] Body temperature 2021-05-[address] [facility] 08:00:00 [facility] Respiratory rate 2021-05-07 17 /min [facility] 08:00:00 [facility] Oxygen saturation 2021-05-07 97 /min [facility] St Sujata es in Arterial blood 08:00:00 Medical nter by Pulse oximetry Body height 2021-05-04 152.4 cm [facility] 17:29:00 [facility] Body weight 2021-05-04 61.689 kg [facility] 17:29:00 [facility] BMI 2021-05-04 26.56 kg/m2 [facility] 17:29:00 [facility] BP Systolic 2018-02-01 131 mm[Hg] Location: RUE; [facility] 08:36:00 Position: Sitting BP Diastolic 2018-02-01 78 mm[Hg] Location: RUE; [facility] 08:36:00 Position: Sitting Height 2018-02-01 60 [in_us] [facility] 08:36:00 Weight 2018-02-01 117 [lb_av] [facility] 08:36:00 Body Mass Index 2018-02-01 22.85 kg/m2 CT Physician s Calculated 08:36:00 Heart Rate 2018-02-01 73 /min Location: R [facility] 08:36:00 Brachial Artery; Procedures Procedure Date / Time Performing Clinician Source Performed CT ABDOMEN PELVIS W 2021-07-24 18:00:55 Glenn [facility] CONTRAST Medical Branch URINALYSIS 2021-07-24 17:39:00 [facility] LIPASE 2021-07-24 16:33:00 Singer [facility] COMP. METABOLIC PANEL 2021-07-24 16:33:00 [facility] ([id number]) Medical Branch CBC WITH DIFF 2021-07-24 16:33:00 [facility] NOTICE OF PRIVACY 2021-07-24 16:11:11 Doctor Unassigned, [facility] PRACTICES [place] [facility] REPORT OF PROCEDURE - 2021-05-06 16:07:30 Juan Alberto Shelton [facility]OS[facility] URL Center ERCP,DIRECT VISUALIZATION 2021-05-06 15:00:00 Juan Alberto Shelton [facility] SPY GLASS Center PROCEDURE W/ C-ARM 2021-05-06 15:00:00 Juan Alberto Shelton [facility] ERCP,BALLOON SWEEPING 2021-05-06 15:00:00 Juan Alberto Shelton [facility] CBC W/PLT COUNT & AUTO 2021-05-06 05:51:00 [facility] DIFFERENTIAL [facility] BASIC METABOLIC PANEL (7) 2021-05-06 05:51:00 [facility] HEPATIC FUNCTION PANEL 2021-05-06 05:51:00 Krzysztofersd [facility] ABORH, MANUAL 2021-05-05 05:07:00 Zunilda Rubin [facility] TYPE AND SCREEN, 2021-05-05 04:14:00 [facility] AUTOMATED [place] PROTHROMBIN TIME/INR 2021-05-05 04:14:00 [facility] SARS-COV2/RT-PCR ([facility] & 2021-05-05 00:18:00 [facility] REF LABS) [facility] BLOOD GAS, VENOUS 2021-05-05 00:14:00 [facility] KETONE, BLOOD 2021-05-05 00:14:00 [facility] HIGH SENSITIVITY TROPONIN 2021-05-05 00:14:00 [facility] INTERPRETATION 2021-05-04 23:15:17 [facility] BASIC METABOLIC PANEL (7) 2021-05-04 21:30:00 [facility] 2021-05-04 21:30:00 [facility] AMYLASE 2021-05-04 21:30:00 [facility] LIPASE 2021-05-04 21:30:00 [facility] CBC W/PLT COUNT & AUTO 2021-05-04 19:37:00 [facility] ECG 12-LEAD 2021-05-04 19:22:33 Unknown, Hl7 Doctor [facility] POCT-GLUCOSE METER 2021-03-11 08:21:00 [facility] COMPREHENSIVE METABOLIC 2021-03-11 06:09:00 [facility] REPORT OF PROCEDURE - 2021-03-10 23:43:51 [facility] ENDOSCOPY URL [facility] POCT-GLUCOSE METER 2021-03-10 16:43:00 [facility] POCT-GLUCOSE METER 2021-03-10 12:45:00 [facility] [place] ER[facility] 2021-03-10 12:02:00 Desiree Duggan [facility] ERCP,PAPILLOTOMY 2021-03-10 11:31:00 [facility] PROCEDURE W/ C-ARM 2021-03-10 11:31:00 [facility] ERCP,BALLOON SWEEPING 2021-03-10 11:31:00 [facility] POCT-GLUCOSE METER 2021-03-10 09:07:00 Paolo [facility] CBC (HEMOGRAM ONLY) 2021-03-10 04:50:00 [place] Clive [facility] COMPREHENSIVE METABOLIC 2021-03-10 04:50:00 [facility] HEMOGLOBIN A1C 2021-03-10 04:50:00 [place] [facility] POCT-GLUCOSE METER 2021-03-09 23:54:00 Pa[facility] SARS-COV2/RT-PCR ([facility] & 2021-03-09 20:13:00 Desiree Duggan [facility] REF LABS) [place] POCT-GLUCOSE METER 2021-03-09 17:22:00 [facility] MR ABDOMEN WITHOUT IV 2021-03-09 15:38:00 [facility] CONTRAST MRCP Center POCT-GLUCOSE METER 2021-03-09 12:22:00 Jessica Boone [facility] URINALYSIS W/ REFLEX 2021-03-09 10:56:00 [facility] URINE CULTURE Center HEPATIC FUNCTION PANEL 2021-03-09 05:25:00 [facility] PROTHROMBIN TIME/INR 2021-03-09 05:25:00 [facility] MAGNESIUM 2021-03-09 05:25:00 [facility] BASIC METABOLIC PANEL (7) 2021-03-09 05:25:00 [facility] I [facility] CBC W/PLT COUNT & AUTO 2021-03-09 05:25:00 [facility] HEMOGLOBIN A1C 2021-03-09 05:25:00 [facility] MRI Brain wo contrast 2018-02-08 00:00:00 [facility] [id number] MRI Brain w/wo contrast 2018-02-01 00:00:00 [facility] [id number] History of Gallbladder [facility] ians surgery Plan of Care Planned Activity Planned Date Details Comments Source Future Scheduled 2021-09-[address] [facility] Test 00:00:00 [facility] (procedure) [code = 61649836] Future Scheduled 2021-09-[address] [facility] Test 00:00:00 [facility] (procedure) [code = 99438028] Future Scheduled 2021-09-[address] [facility] Test 00:00:00 [facility] (procedure) [code = 61918942] Future Scheduled 2021-09-[address] [facility] Test 00:00:00 [facility] (procedure) [code = 53371133] Future Scheduled 2021-05-13 INFLUENZA VACCINE (#1) [facility] Test 00:00:00 [code = INFLUENZA Medical Ce nter VACCINE (#1)] Future Scheduled 2021-05-13 INFLUENZA VACCINE (#1) [facility] Test 00:00:00 [code = INFLUENZA Medical Ce nter VACCINE (#1)] Future Scheduled 2021-05-13 INFLUENZA VACCINE (#1) [facility] Test 00:00:00 [code = INFLUENZA Medical Ce nter VACCINE (#1)] Future Scheduled 2021-05-13 INFLUENZA VACCINE (#1) [facility] Test 00:00:00 [code = INFLUENZA Medical Ce nter VACCINE (#1)] Future Scheduled 2013 PNEUMOCOCCAL 65+ YRS [facility] Test 00:00:00 (1 of 1 [facility] [id number] PCV13) [code = PNEUMOCOCCAL 65+ YRS (1 of 1 - [id number] PCV13)] Future Scheduled 2013 PNEUMOCOCCAL 65+ [facility] Test 00:00:00 ([address] [place] [address] [id number] PCV13) [code = PNEUMOCOCCAL 65+ YRS (1 of 1 - [id number] PCV13)] Future Scheduled 2013 PNEUMOCOCCAL 65+ Y[facility] Test 00:00:00 (1 of 1 [facility] [id number] PCV13) [code = PNEUMOCOCCAL 65+ YRS (1 of 1 - [id number] PCV13)] Future Scheduled 2013 PNEUMOCOCCAL 65+ Y[facility] Test 00:00:00 (1 of 1 [facility] [id number] PCV13) [code = PNEUMOCOCCAL 65+ YRS (1 of 1 - [id number] PCV13)] Future Scheduled 2004-10-[address] [facility] Test 00:00:00 WELLNESS (YEAR 2 or Medical Center FIRST YEAR if no IPPE) [code = MEDICARE ANNUAL WELLNESS (YEAR 2 or FIRST YEAR if no IPPE)] Future Scheduled 2004-10-[address] [facility] Test 00:00:00 WELLNESS (YEAR 2 or Medical Center FIRST YEAR if no IPPE) [code = MEDICARE ANNUAL WELLNESS (YEAR 2 or FIRST YEAR if no IPPE)] Future Scheduled 2004-10-[address] [facility] Test 00:00:00 WELLNESS (YEAR 2 or Medical Center FIRST YEAR if no IPPE) [code = MEDICARE ANNUAL WELLNESS (YEAR 2 or FIRST YEAR if no IPPE)] Future Scheduled 2004-10-[address] [facility] Test 00:00:00 WELLNESS (YEAR 2 or Medical Center FIRST YEAR if no IPPE) [code = MEDICARE ANNUAL WELLNESS (YEAR 2 or FIRST YEAR if no IPPE)] Future Scheduled 1998 SHINGLES VACCINES ([address] [facility] 00:00:00 of 2) [code = [facility]LES [facility] VACCINES (1 of 2)] Future Scheduled 1998 SHINGLES VACCINES ([address] [facility] 00:00:00 of 2) [code = SHINGLES [facility] Center VACCINES (1 of 2)] Future Scheduled 1998 SHINGLES VACCINES ([address] [facility] 00:00:00 of 2) [code = SHINGLES [facility] Center VACCINES (1 of 2)] Future Scheduled 1998 SHINGLES VACCINES ([address] [facility] 00:00:00 of 2) [code = SHINGLES [facility] Center VACCINES (1 of 2)] Future Scheduled 1967 DTAP/TDAP/TD [facility]ACCINES [facility] 00:00:00 (1 - Tdap) [code = Medical C enter DTAP/TDAP/TD VACCINES (1 - Tdap)] Future Scheduled 1967 DTAP/TDAP/TD [facility]ACCINES [facility] 00:00:00 (1 - Tdap) [code = Medical C enter DTAP/TDAP/TD VACCINES (1 - Tdap)] Future Scheduled 1967 DTAP/TDAP/TD [facility]ACCINES [facility] 00:00:00 (1 - Tdap) [code = Medical C enter DTAP/TDAP/TD VACCINES (1 - Tdap)] Future Scheduled 1967 DTAP/TDAP/TD [facility]ACCINES [facility] 00:00:00 (1 - Tdap) [code = Medical C enter DTAP/TDAP/TD VACCINES (1 - Tdap)] Future Scheduled 1966 HEPATITIS C [facility]CRE[facility]ING [facility] 00:00:00 [code = HEPATITIS C Medical Center SCREENING] Future Scheduled 1966 HEPATITIS C [facility]ING [facility] 00:00:00 [code = HEPATITIS C Medical Center SCREENING] Future Scheduled 1966 HEPATITIS C [facility]ING [facility] 00:00:00 [code = HEPATITIS C Medical Center SCREENING] Future Scheduled 1966 HEPATITIS C [facility]ING [facility] 00:00:00 [code = HEPATITIS C Medical Center SCREENING] Future Scheduled [address]IC EYE EXAM [facility] 00:00:00 [code = DIABETIC EYE Medical Center EXAM] Future Scheduled [address] [facility] Center (regime/therapy) [code = 880297367] Future Scheduled 1958 Urine screening for [facility] 00:00:00 protein (procedure) Medical Center [code = 403014069] Future Scheduled [address] EYE EXAM [facility] 00:00:00 [code = DIABETIC EYE Medical Center EXAM] Future Scheduled [address] [facility] examination [facility] Center (regime/therapy) [code = 550372456] Future Scheduled 1958 Urine screening for [facility] 00:00:00 protein (procedure) Medical Center [code = 144429798] Future Scheduled [address]AB[address]IC EYE EXAM [facility] 00:00:00 [code = DIABETIC EYE Medical Center EXAM] Future Scheduled [address] [facility] examination Medical Center (regime/therapy) [code = 147902931] Future Scheduled 1958 Urine screening for [facility] 00:00:00 protein (procedure) Medical Center [code = 811840289] Future Scheduled [address]ABETIC EYE EXAM [facility] 00:00:00 [code = DIABETIC EYE Medical Center EXAM] Future Scheduled [address] [facility] 00[facility]:00 examination Medical Center (regime/therapy) [code = 170199401] Future Scheduled 1958 Urine screening for [facility] 00:00:00 protein (procedure) Medical Center [code = 120169646] Future Scheduled [address] [facility] 00:[facility]:00 malignant neoplasm of [facility] Center breast (procedure) [code = 499574670] Future Scheduled [address] [facility] 00:[facility]:00 [facility] colon (procedure) [code = 277887946] Future Scheduled [address] [facility] 00:[facility]:00 malignant [facility] breast (procedure) [code = 524502347] Future Scheduled [address] [facility] 00:[facility]:00 [facility] colon (procedure) [code = 621824748] Future Scheduled [address] [facility] 00:[facility]:00 malignant [facility] breast (procedure) [code = 832178465] Future Scheduled [address] [facility] 00:00:00 [facility] colon (procedure) [code = 842540384] Future Scheduled [address] [facility] 00:00:00 malignant [facility] breast (procedure) [code = 757238063] Future Scheduled [address] [facility] 00:00:00 malignant ne[facility] Center colon (procedure) [code = 745926233] Encounters Start End Encounter Admission Attending Care Care Encounter Source Date/Time Date/Time Type Type Clinicians Facility Department ID 2021-06-21 Inpatient ER ADIO, [facility] [id number] [facility] 02:39:12 [facility] 2021-08-10 2021-08-10 Outpatient SUYAPA BASHIR [facility] [id number] [facility] 10:38:01 17:18:04 LEV [facility] 2021-07-24 2021-07-24 Emergency X SINGER [facility] ERT [id number] [facility] 10:12:00 14:31:00 GLENN reynolds [facility] 2021-07-24 2021-07-24 Emergency Singer [facility] [id number] [facility] 10:12:00 14:31:00 Glenn DONATO [id number] i ty [facility] [id number] [facility] [id number] [place] [address] [address] 2021-05-04 2021-05-07 Hospital ER Cherie Faustin [facility] [id number] 17:37:00 10:59:00 Encounter Caterina Palenciaoma [facility] Omari Porter [facility] 2021-05-06 2021-05-06 Anesthesia Denise Quispe [facility] [id number] 15:10:00 16:27:00 Event Jm Rushing [facility] 2021-05-06 2021-05-06 Surgery Nikita, [facility] [id number] 13:00:00 14:30:00 [facility] 2021-05-05 2021-05-05 Travel [facility] [id number] [facility] 00:[facility] 00:[facility]:00 [facility] 2021-05-04 2021-05-04 Outpatient BCM [facility] [id number] [facility] 00:00:00 23:59:00 [facility] 2021-05-04 2021-05-04 Emergency ER SLE Emergency [id number] [facility] 17:24:00 17:24:00 2021-05-04 2021-05-04 Orders [facility] [id number] 00:00:00 00:00:00 Only [facility] 2021-05-04 2021-05-04 Travel [facility] [id number] [facility] 00:[facility] 00:00:00 [facility] 2021-05-01 2021-05-01 Emergency E EVANGELINA, RAQUEL BL [address] 16:21:00 22:56:00 [facility] 2021-03-13 2021-03-13 Telephone Ezequiel [facility] [id number] 00:00:00 00:00:00 Tyesha Mojica [facility] 2021-03-08 2021-03-11 Hospital ER Curtis BurnettKenrick [facility] [id number] 23:13:00 11:35:00 Encounter [facility] 2021-03-10 2021-03-10 Surgery Kathy [facility] [id number] 11:00:00 12:30:00 Allen Rm [facility] 2021-03-10 2021-03-10 Anesthesia Josef [facility] [id number] 11:36:00 12:27:00 Event Graciela Tian Ricafrente [facility] 2018-02-01 2018-02-01 Appointmen BRENDAN OSORIO Neurology [id number] [place] 08:00:00 08:00:00 t; HOLLIE OSORIO, Miguel Angel Mack M.D. Results Test Description Test Time Test Comments Results Result Comments Source COMP. METABOLIC PANEL (53563) 2021-07-24 17:14:29 Test Item Value Reference Range Interpretation Comme nts NA (test code = 2294095724) 139 mmol/L 135-145 K (test code = 3179469829) 4.3 mmol/L 3.5-5.0 CL (test code = 4366242711) 104 mmol/L 98-108 CO2 TOTAL (test code = 3721949170) 24 mmol/L 23-31 AGAP (test code = 0795825669) 2-16 BUN (test code = 9740232972) 18 mg/dL 7-23 GLUCOSE (test code = 4309991894) 104 mg/dL 70-110 CREATININE (test code = 1.39 mg/dL 0.50-1.04 H 5471344174) TOTAL BILI (test code = 0.4 mg/dL 0.1-1.3 8326292059) CALCIUM (test code = 8301624353) 9.6 mg/dL 8.6-10.6 T PROTEIN (test code = 2645416820) 8.4 g/dL 6.3-8.2 H ALBUMIN (test code = 0683333070) 4.6 g/dL 3.5-5.0 ALK PHOS (test code = 6038868064) 93 U/L 34-122 ALTv (test code = 1742-6) 44 U/L 5-35 H AST(SGOT) (test code = 9949279017) 48 U/L 13-40 H eGFR (test code = 3380599887) mL/min/1.73m2 TORRES (test code = TORRES) Association [...] tests). Lab Interpretation (test code = Abnormal 18674-1) [facility]13[facility]49 Test Item Value Reference Range Interpretation Comments LIPASE (test code = 7269519466) 266 U/L 0-220 H Lab Interpretation (test code = Abnormal 91871-3) [facility] [id number] 17:03:27 Test Item Value Reference Range Interpretation Comments WBC (test code = See_Comment [Automated 4745-2) message] The sy stem which generated this result transmitted reference range : 4.30 - 11.10 10*3/?L. The reference range was not used to interpret this result as normal/abnormal . RBC (test code = See_Comment [Automated 074-8) message] The sy stem which generated this [...] RDW-SD (test code = 48.4 fL 39.0-49.9 89851-2) RDW-CV (test code = 13.8 % 12.0-15.5 788-0) PLT (test code = See_Comment [Automated 777-3) message] The sy stem which generated this result transmitted reference range : 166 - 358 10*3/ ?L. The reference r becca was not used to interpret this result as normal/abnormal . MPV (test code = 9.1 fL 9.5-12.9 L 42143-7) NRBC/100 WBC (test See_Comment [Automat ed code = 3604168741) message] The system which generated this result transmitted reference range : 0.0 - 10.0 /100 WBCs. The refer ence range was not u sed to interpret th is result as normal/abnormal . NRBC x10^3 (test code <0.01 See_Comment [Auto mated = 9853025415) message] The s ystem which generated this result transmitted reference range : 10*3/?L. The reference range was not used to interpret this result as normal/abnormal . GRAN MAT (NEUT) % 64.8 % (test code = 770-8) IMM GRAN % (test code 0.90 % = 4435415765) LYMPH % (test code = 24.2 % 736-9) MONO % (test code = 8.2 % 5905-5) EOS % (test code = 1.4 % 713-8) BASO % (test code = 0.5 % 706-2) GRAN MAT x10^3(ANC) 5.59 10*3/uL 1.88-7.09 (test code = 8178818035) IMM GRAN x10^3 (test 0.08 10*3/uL 0.00-0.06 H code = 9690349876) LYMPH x10^3 (test code 2.09 10*3/uL 1.32-3.29 = 731-0) MONO x10^3 (test code 0.71 10*3/uL 0.33-0.92 = 742-7) EOS x10^3 (test code = 0.12 10*3/uL 0.03-0.39 711-2) BASO x10^3 (test code 0.04 10*3/uL 0.01-0.07 = 704-7) Lab Interpretation Abnormal (test code = 33881-5) [facility] [id number] 07:08:00 Test Item Value Reference Range Interpretation Comments Sodium (test code = 139 meq/L 874-150 5672-2) Potassium (test 4.1 meq/L 3.5-5.1 code = 2823-3) Chloride (test code 107 meq/L 98-107 = 2075-0) CO2 (test code = 25 meq/L 22-29 8-9) BUN (test code = 13 mg/dL 7-21 3094-0) Creatinine (test 0.97 mg/dL 0.57-1.25 code = 2160-0) Glucose (test code 80 mg/dL 70-105 = 2345-7) Calcium (test code 8.9 mg/dL 8.4-10.2 = 55754-0) EGFR (test code = 56 mL/min/1.[address] [place] [address]-9) NOT ACCURATE CREATININE CLEARANCE IN PREDICTING GLOMERULAR FILTRATION RATE . ESTIMATED GFR I S NOT APPLICABLE FOR DIALYSIS PATIEN TSKenrick TORRES (test code = Transcript Evaluator ID - TORRES) TOÑITO Camacho [facility] [id number] 07:08:00 Test Item Value Reference Range Interpretation Comments Protein, Total (test 6.9 See_Comment [Autom ated code = 2885-2) message] The system which generated this result transmit lane reference range : 6.0 - 8.3 gm/dL . The reference range was not u sed to interpret th is result as normal/abnormal . Albumin (test code = 3.6 g/dL 3.5-5 55117-3) Total Bilirubin (test 0.3 mg/dL 0.2-1.2 code = 1974-2) Bilirubin, Direct 0.2 mg/dL 0.1-0.5 (test code = 1967-7) Alkaline Phosphatase 56 U/L 40-150 (test code = 6768-6) AST (test code = 37 U/L 5-34 H 1920-8) ALT (test code = 50 U/L 6-55 1742-6) TORRES (test code = TORRES) Transcript Evaluator ID - TOÑITO Doug Lab Interpretation Abnormal (test code = 00602-6) [facility] [id number] 07:08:00 Test Item Value Reference Range Interpretation Comments Sodium (test code = 139 meq/L 968-968 3499-2) Potassium (test 4.1 meq/L 3.5-5.1 code = 2823-3) Chloride (test code 107 meq/L 98-107 = 2075-0) CO2 (test code = 25 meq/L 22-29 8-9) BUN (test code = 13 mg/dL 7-21 3094-0) Creatinine (test 0.97 mg/dL 0.57-1.25 code = 2160-0) Glucose (test code 80 mg/dL 70-105 = 2345-7) Calcium (test code 8.9 mg/dL 8.4-10.2 = 00956-9) EGFR (test code = 56 mL/min/1.[address] [place] [address]-4) NOT ACCURATE CREATININE CLEARANCE IN PREDICTING GLOMERULAR FILTRATION RATE . ESTIMATED GFR I S NOT APPLICABLE FOR DIALYSIS PATIEN TS. TORRES (test code = Transcript Evaluator ID - TORRES) TOÑITO Camacho [facility] [id number] 07:08:00 Test Item Value Reference Range Interpretation Comments Protein, Total (test 6.9 See_Comment [Autom ated code = 2885-2) message] The system which generated this result transmit lane reference range : 6.0 - 8.3 gm/dL . The reference range was not u sed to interpret th is result as normal/abnormal . Albumin (test code = 3.6 g/dL 3.5-5 47269-0) Total Bilirubin (test 0.3 mg/dL 0.2-1.2 code = 1974-2) Bilirubin, Direct 0.2 mg/dL 0.1-0.5 (test code = 1967-) Alkaline Phosphatase 56 U/L 40-150 (test code = 6768-6) AST (test code = 37 U/L 5-34 H 1920-8) ALT (test code = 50 U/L 6-55 1742-6) TORRES (test code = TORRES) Transcript Evaluator ID - TOÑITO Camacho Lab Interpretation Abnormal (test code = 48019-1) [facility] [id number] 07:08:00 Test Item Value Reference Range Interpretation Comments Sodium (test code = 139 meq/L 667-614 4645-2) Potassium (test 4.1 meq/L 3.5-5.1 code = 2823-3) Chloride (test code 107 meq/L 98-107 = 2075-0) CO2 (test code = 25 meq/L 22-29 2027-9) BUN (test code = 13 mg/dL 7-21 3094-0) Creatinine (test 0.97 mg/dL 0.57-1.25 code = 2160-0) Glucose (test code 80 mg/dL 70-105 = 2345-7) Calcium (test code 8.9 mg/dL 8.4-10.2 = 69609-0) EGFR (test code = 56 mL/min/1.[address] [place] [address]-7) NOT ACCURATE CREATININE CLEARANCE IN PREDICTING GLOMERULAR FILTRATION RATE . ESTIMATED GFR I S NOT APPLICABLE FOR DIALYSIS PATIEN TS. TORRES (test code = Transcript Evaluator ID - TORRES) TOÑITO Caamcho [facility] [id number] 07:08:00 Test Item Value Reference Range Interpretation Comments Protein, Total (test 6.9 See_Comment [Autom ated code = 2885-2) message] The system which generated this result transmit lane reference range : 6.0 - 8.3 gm/dL . The reference range was not u sed to interpret th is result as normal/abnormal . Albumin (test code = 3.6 g/dL 3.5-5 52971-8) Total Bilirubin (test 0.3 mg/dL 0.2-1.2 code = 1974-) Bilirubin, Direct 0.2 mg/dL 0.1-0.5 (test code = 1967-7) Alkaline Phosphatase 56 U/L 40-150 (test code = 6768-6) AST (test code = 37 U/L 5-34 H 1920-8) ALT (test code = 50 U/L 6-55 1742-6) TORRES (test code = TORRES) Transcript Evaluator ID - TOÑITO Camacho Lab Interpretation Abnormal (test code = 96307-6) [facility] [id number] 07:08:00 Test Item Value Reference Range Interpretation Comments Sodium (test code = 139 meq/L 493-205 9374-2) Potassium (test 4.1 meq/L 3.5-5.1 code = 2823-3) Chloride (test code 107 meq/L 98-107 = 2075-0) CO2 (test code = 25 meq/L 22-29 2027-9) BUN (test code = 13 mg/dL 7-21 3094-0) Creatinine (test 0.97 mg/dL 0.57-1.25 code = 2160-0) Glucose (test code 80 mg/dL 70-105 = 2345-7) Calcium (test code 8.9 mg/dL 8.4-10.2 = 19140-0) EGFR (test code = 56 mL/min/1.[address] [place] [address]-4) NOT ACCURATE CREATININE CLEARANCE IN PREDICTING GLOMERULAR FILTRATION RATE . ESTIMATED GFR I S NOT APPLICABLE FOR DIALYSIS PATIEN TSKenrick TORRES (test code = Transcript Evaluator ID - TORRES) TOÑITO Camacho [facility] [id number] 07:08:00 Test Item Value Reference Range Interpretation Comments Protein, Total (test 6.9 See_Comment [Autom ated code = 2885-2) message] The system which generated this result transmit lane reference range : 6.0 - 8.3 gm/dL . The reference range was not u sed to interpret th is result as normal/abnormal . Albumin (test code = 3.6 g/dL 3.5-5 48610-2) Total Bilirubin (test 0.3 mg/dL 0.2-1.2 code = 1974-) Bilirubin, Direct 0.2 mg/dL 0.1-0.5 (test code = 1968-7) Alkaline Phosphatase 56 U/L 40-150 (test code = 6768-6) AST (test code = 37 U/L 5-34 H 1920-8) ALT (test code = 50 U/L 6-55 1742-6) TORRES (test code = TORRES) Transcript Evaluator ID - PIAYA L Lab Interpretation Abnormal (test code = 51289-9) [facility] METABOLIC [id number] 07:08:00 Test Item Value Reference Range Interpretation [...] S NOT APPLICABLE FOR DIALYSIS PATIEN TS. Transcript Evaluator ID - PIAYA LHEPATIC FUNCTION [id number] 07:08:00 Test Item Value Reference Range Interpretation [...] (test code = 50 U/L 6-55 347) Transcript Evaluator ID - TOÑITO LCBC with platelet count + automated [id number] 06:01:00 Test Item Value Reference Range Interpretation Comments WBC (test code = 6690-2) 7.9 See_Comment [A utomated message] The system [employer] generated this result transmitted ref erence range: 3.5 - 10 .5 K/L. The refe rence range was not u sed to interpret this result as normal/abnor mal. RBC (test code = 789-8) 3.22 See_Comment L [Au tomated message] The system [employer] generated this result transmitted ref erence range: 3.93 - 5 .22 M/L. The refe rence range was not u sed to interpret this result as normal/abnor mal. MCHC (test code = 786-4) 31.8 See_Comment L [A utomated message] The system [employer] generated this result transmitted ref erence range: [...] See_Comment [Aut omated message] 777-3) The system [employer] generated this result transmitted ref erence range: 150 - 45 0 K/CU MM. The referen ce range was not u sed to interpret this result as normal/abnor mal. MPV (test code = 8.9 fL 9.4-12.3 L 41992-6) nRBC (test code = 413) 0 See_Comment [Aut omated message] The system [employer] generated this result transmitted ref erence range: [...] See_Comment [Aut omated message] 670) The system [employer] generated this result transmitted ref erence range: 1.56 - 6 .13 K/L. The refe rence range was not u sed to interpret this result as normal/abnor mal. # Lymphs (test code = 2.20 See_Comment [Auto mated message] 414) The system [employer] generated this result transmitted ref erence range: 1.18 - 3 .74 K/L. The refe rence range was not u sed to interpret this result as normal/abnor mal. # Monos (test code = 0.54 See_Comment H [Autom ated message] 415) The system [employer] generated this result transmitted ref erence range: 0.24 - 0 .36 K/L. The refe rence range was not u sed to interpret this result as normal/abnor mal. # Eos (test code = 416) 0.08 See_Comment [Au tomated message] The system [employer] generated this result transmitted ref erence range: 0.04 - 0 .36 K/L. The refe rence range was not u sed to interpret this result as normal/abnor mal. # Baso (test code = 417) 0.03 See_Comment [A utomated message] The system [employer] generated this result transmitted ref erence range: 0.01 - 0 .08 K/L. The refe rence range was not u sed to interpret this result as normal/abnor mal. Immature 0 % 0-1 Granulocytes-Relative (test code = 2801) Lab Interpretation (test Abnormal code = 98272-7) [facility] with platelet count + automated [id number] 06:01:00 Test Item Value Reference Range Interpretation Comments WBC (test code = 6690-2) 7.9 See_Comment [A utomated message] The system [employer] generated this result transmitted ref erence range: 3.5 - 10 .5 K/L. The refe rence range was not u sed to interpret this result as normal/abnor mal. RBC (test code = 789-8) 3.22 See_Comment L [Au tomated message] The system [employer] generated this result transmitted ref erence range: 3.93 - 5 .22 M/L. The refe rence range was not u sed to interpret this result as normal/abnor mal. MCHC (test code = 786-4) 31.8 See_Comment L [A utomated message] The system [employer] generated this result transmitted ref erence range: [...] See_Comment [Aut omated message] 777-3) The system [employer] generated this result transmitted ref erence range: 150 - 45 0 K/CU MM. The referen ce range was not u sed to interpret this result as normal/abnor mal. MPV (test code = 8.9 fL 9.4-12.3 L 62475-7) nRBC (test code = 413) 0 See_Comment [Aut omated message] The system [employer] generated this result transmitted ref erence range: [...] See_Comment [Aut omated message] 670) The system [employer] generated this result transmitted ref erence range: 1.56 - 6 .13 K/L. The refe rence range was not u sed to interpret this result as normal/abnor mal. # Lymphs (test code = 2.20 See_Comment [Auto mated message] 414) The system [employer] generated this result transmitted ref erence range: 1.18 - 3 .74 K/L. The refe rence range was not u sed to interpret this result as normal/abnor mal. # Monos (test code = 0.54 See_Comment H [Autom ated message] 415) The system [employer] generated this result transmitted ref erence range: 0.24 - 0 .36 K/L. The refe rence range was not u sed to interpret this result as normal/abnor mal. # Eos (test code = 416) 0.08 See_Comment [Au tomated message] The system [employer] generated this result transmitted ref erence range: 0.04 - 0 .36 K/L. The refe rence range was not u sed to interpret this result as normal/abnor mal. # Baso (test code = 417) 0.03 See_Comment [A utomated message] The system [employer] generated this result transmitted ref erence range: 0.01 - 0 .08 K/L. The refe rence range was not u sed to interpret this result as normal/abnor mal. Immature 0 % 0-1 Granulocytes-Relative (test code = 2801) Lab Interpretation (test Abnormal code = 08789-2) [facility] with platelet count + automated [id number] 06:01:00 Test Item Value Reference Range Interpretation Comments WBC (test code = 6690-2) 7.9 See_Comment [A utomated message] The system [employer] generated this result transmitted ref erence range: 3.5 - 10 .5 K/L. The refe rence range was not u sed to interpret this result as normal/abnor mal. RBC (test code = 789-8) 3.22 See_Comment L [Au tomated message] The system [employer] generated this result transmitted ref erence range: 3.93 - 5 .22 M/L. The refe rence range was not u sed to interpret this result as normal/abnor mal. MCHC (test code = 786-4) 31.8 See_Comment L [A utomated message] The system [employer] generated this result transmitted ref erence range: [...] See_Comment [Aut omated message] 777-3) The system [employer] generated this result transmitted ref erence range: 150 - 45 0 K/CU MM. The referen ce range was not u sed to interpret this result as normal/abnor mal. MPV (test code = 8.9 fL 9.4-12.3 L 19477-7) nRBC (test code = 413) 0 See_Comment [Aut omated message] The system [employer] generated this result transmitted ref erence range: [...] See_Comment [Aut omated message] 670) The system [employer] generated this result transmitted ref erence range: 1.56 - 6 .13 K/L. The refe rence range was not u sed to interpret this result as normal/abnor mal. # Lymphs (test code = 2.20 See_Comment [Auto mated message] 414) The system [employer] generated this result transmitted ref erence range: 1.18 - 3 .74 K/L. The refe rence range was not u sed to interpret this result as normal/abnor mal. # Monos (test code = 0.54 See_Comment H [Autom ated message] 415) The system [employer] generated this result transmitted ref erence range: 0.24 - 0 .36 K/L. The refe rence range was not u sed to interpret this result as normal/abnor mal. # Eos (test code = 416) 0.08 See_Comment [Au tomated message] The system [employer] generated this result transmitted ref erence range: 0.04 - 0 .36 K/L. The refe rence range was not u sed to interpret this result as normal/abnor mal. # Baso (test code = 417) 0.03 See_Comment [A utomated message] The system [employer] generated this result transmitted ref erence range: 0.01 - 0 .08 K/L. The refe rence range was not u sed to interpret this result as normal/abnor mal. Immature 0 % 0-1 Granulocytes-Relative (test code = 2801) Lab Interpretation (test Abnormal code = 66802-0) [facility] with platelet count + automated [id number] 06:01:00 Test Item Value Reference Range Interpretation Comments WBC (test code = 6690-2) 7.9 See_Comment [A utomated message] The system [employer] generated this result transmitted ref erence range: 3.5 - 10 .5 K/L. The refe rence range was not u sed to interpret this result as normal/abnor mal. RBC (test code = 789-8) 3.22 See_Comment L [Au tomated message] The system [employer] generated this result transmitted ref erence range: 3.93 - 5 .22 M/L. The refe rence range was not u sed to interpret this result as normal/abnor mal. MCHC (test code = 786-4) 31.8 See_Comment L [A utomated message] The system [employer] generated this result transmitted ref erence range: [...] See_Comment [Aut omated message] 777-3) The system [employer] generated this result transmitted ref erence range: 150 - 45 0 K/CU MM. The referen ce range was not u sed to interpret this result as normal/abnor mal. MPV (test code = 8.9 fL 9.4-12.3 L 35757-4) nRBC (test code = 413) 0 See_Comment [Aut omated message] The system [employer] generated this result transmitted ref erence range: [...] See_Comment [Aut omated message] 670) The system [employer] generated this result transmitted ref erence range: 1.56 - 6 .13 K/L. The refe rence range was not u sed to interpret this result as normal/abnor mal. # Lymphs (test code = 2.20 See_Comment [Auto mated message] 414) The system [employer] generated this result transmitted ref erence range: 1.18 - 3 .74 K/L. The refe rence range was not u sed to interpret this result as normal/abnor mal. # Monos (test code = 0.54 See_Comment H [Autom ated message] 415) The system [employer] generated this result transmitted ref erence range: 0.24 - 0 .36 K/L. The refe rence range was not u sed to interpret this result as normal/abnor mal. # Eos (test code = 416) 0.08 See_Comment [Au tomated message] The system [employer] generated this result transmitted ref erence range: 0.04 - 0 .36 K/L. The refe rence range was not u sed to interpret this result as normal/abnor mal. # Baso (test code = 417) 0.03 See_Comment [A utomated message] The system [employer] generated this result transmitted ref erence range: 0.01 - 0 .08 K/L. The refe rence range was not u sed to interpret this result as normal/abnor mal. Immature 0 % 0-1 Granulocytes-Relative (test code = 2801) Lab Interpretation (test Abnormal code = 06831-8) [facility] W/PLT COUNT & AUTO [id number] 06:01:00 Test Item Value Reference Range Interpretation [...] (BEAKER) (test code = 2801) ECG 12 [id number] 06:47:19Interface, External Ris In - 05/05/2021 6:47 AM CDTVentricular Rate 91 BPMAtrial Rate 91 BPMP-R Interval 126 msQRS Duration 78 msQ-T Interval 352 msQTC Calculation(Bazett) 432 msP [place] 44 degreesR [place] 28 degreesT [place] 39 degreesNormal sinus rhythmNormal ECGNo previous ECGs availableConfirmed by MD BELLAMY JOSEPH P ([id number]) on 05/05/2021 6:47:15 [facility] [id number] 06:47:19Interface, External Ris In - 05/05/2021 6:47 AM CDTVentricular Rate 91 BPMAtrial Rate 91 BPMP-R Interval 126 msQRS Duration 78 msQ-T Interval 352 msQTC Calculation(Bazett) 432 msP [place] 44 degreesR [place] 28 degreesT [place] 39 degreesNormal sinus rhythmNormal ECGNo previous ECGs availableConfirmed by MD BELLAMY JOSEPH P ([id number]) on 05/05/2021 6:47:15 [facility] [id number] 06:47:19Interface, External Ris In - 05/05/2021 6:47 AM CDTVentricular Rate 91 BPMAtrial Rate 91 BPMP-R Interval 126 msQRS Duration 78 msQ-T Interval 352 msQTC Calculation(Bazett) 432 msP [place] 44 degreesR [place] 28 degreesT [place] 39 degreesNormal sinus rhythmNormal ECGNo previous ECGs availableConfirmed by OKSANA LANDRUM MD, TEMI Mcnulty ([id number]) on 05/05/2021 6:47:15 [facility] [id number] 06:47:19Interface, External Ris In - 05/05/2021 6:47 AM CDTVentricular Rate 91 BPMAtrial Rate 91 BPMP-R Interval 126 msQRS Duration 78 msQ-T Interval 352 msQTC Calculation(Bazett) 432 msP [place] 44 degreesR [place] 28 degreesT [place] 39 degreesNormal sinus rhythmNormal ECGNo previous ECGs availableConfirmed by MD MIA, TEMI Mcnulty ([id number]) on 05/05/2021 6:47:15 [facility], [id number] 06:17:00 Test Item Value Reference Range Interpretation Comments ABO Grouping (test code = 2588) O Rh Factor (test code = 2589) POS [facility], [id number] 06:17:00 Test Item Value Reference Range Interpretation Comments ABO Grouping (test code = 2588) O Rh Factor (test code = 2589) POS [facility], [id number] 06:17:00 Test Item Value Reference Range Interpretation Comments ABO Grouping (test code = 2588) O Rh Factor (test code = 2589) [facility], [id number] 06:17:00 Test Item Value Reference Range Interpretation Comments ABO Grouping (test code = 2588) O Rh Factor (test code = 2589) [facility] automated ([facility] and [facility] only) 2021-05-05 05:01:00 Test Item Value Reference Range Interpretation Comments ABO/RH AUTOMATED (BEAKER) (test O POSITIVE code = 2260) Ab Scrn (test code = 890-4) NEGATIVE [facility] automated ([facility] and [facility] only) 2021-05-05 05:01:00 Test Item Value Reference Range Interpretation Comments ABO/RH AUTOMATED (BEAKER) (test O POSITIVE code = 2260) Ab Scrn (test code = 890-4) NEGATIVE [facility] automated ([facility]) 2021-05-05 05:01:00 Test Item Value Reference Range Interpretation Comments ABO/RH AUTOMATED (BEAKER) (test O POSITIVE code = 2260) Ab Scrn (test code = 890-4) NEGATIVE [facility] automated ([facility]) 2021-05-05 05:01:00 Test Item Value Reference Range Interpretation Comments ABO/RH AUTOMATED (BEAKER) (test O POSITIVE code = 2260) Ab Scrn (test code = 890-4) NEGATIVE [facility] CenterPT/[id number] 04:35:00 Test Item Value Reference Interpretation Comments [...] valves. Lab Interpretation Normal (test code = 60985-4) [facility]PT/[id number] 04:35:00 Test Item Value Reference Interpretation Comments [...] valves. Lab Interpretation Normal (test code = 21650-5) [facility]PT/[id number] 04:35:00 Test Item Value Reference Interpretation Comments [...] valves. Lab Interpretation Normal (test code = 62177-1) [facility]PT/[id number] 04:35:00 Test Item Value Reference Interpretation Comments [...] valves. Lab Interpretation Normal (test code = 03645-2) [facility] CenterPROTHROMBIN TIME/[id number] 04:35:00 Test Item Value Reference Range Interpretation Comments PROTIME (BEAKER) 13.7 seconds 11.9-14.2 (test code = 759) INR (BEAKER) (test 1.07 See_Comment [Automat ed message] code = 370) The system [employer] generated this result transmitted ref erence range: <=5.90. The reference range was not used to int erpret this result as normal/abnormal . RECOMMENDED COUMADIN/WARFARIN INR THERAPY RANGESSTANDARD DOSE: 2.0 - 3.0 Includes: PROPHYLAXIS forvenous thrombosis, systemic embolization; TREATMENT for venous thrombosis and/or pulmonary embolus.HIGH RISK: Target INR is 2.5-3.5 for patients with mechanical heart valves.High Sensitivity Troponin [id number] 01:56:00 Test Item Value Reference Range Interpretation Comments Troponin I HS <4 See_Comment [Automated (test code = message] [employer] 80663-1) system which generated this result transmitted reference range : <=17 pg/ml. The reference range was not used to interpret this result as normal/abnormal . TORRES (test code = Transcript Evaluator ID - TORRES) DBThe FINANCIAL OFFICER STAT High Sensitivity Troponin-I results should be used in conjunction with other diagnostic information such as ECG, clinical observations and information, and patient symptoms to aid in the diagnosis of GA. Lab Interpretation Normal (test code = 25198-4) [facility] CenterHigh Sensitivity Troponin [id number] 01:56:00 Test Item Value Reference Range Interpretation Comments Troponin I HS <4 See_Comment [Automated (test code = message] The 29678-9) system which generated this result transmitted reference range : <=17 pg/ml. The reference range was not used to interpret this result as normal/abnormal . TORRES (test code = Transcript Evaluator ID - TORRES) DBThe FINANCIAL OFFICER STAT High Sensitivity Troponin-I results should be used in conjunction with other diagnostic information such as ECG, clinical observations and information, and patient symptoms to aid in the diagnosis of GA. Lab Interpretation Normal (test code = 86847-9) [facility] CenterHigh Sensitivity Troponin [id number] 01:56:00 Test Item Value Reference Range Interpretation Comments Troponin I HS <4 See_Comment [Automated (test code = message] The 47758-6) system which generated this result transmitted reference range : <=17 pg/ml. The reference range was not used to interpret this result as normal/abnormal . TORRES (test code = Transcript Evaluator ID - TORRES) DBThe FINANCIAL OFFICER STAT High Sensitivity Troponin-I results should be used in conjunction with other diagnostic information such as ECG, clinical observations and information, and patient symptoms to aid in the diagnosis of GA. Lab Interpretation Normal (test code = 15841-0) [facility] CenterHigh Sensitivity Troponin [id number] 01:56:00 Test Item Value Reference Range Interpretation Comments Troponin I HS <4 See_Comment [Automated (test code = message] The 61288-9) system which generated this result transmitted reference range : <=17 pg/ml. The reference range was not used to interpret this result as normal/abnormal . TORRES (test code = Transcript Evaluator ID - TORRES) DBThe FINANCIAL OFFICER STAT High Sensitivity Troponin-I results should be used in conjunction with other diagnostic information such as ECG, clinical observations and information, and patient symptoms to aid in the diagnosis of GA. Lab Interpretation Normal (test code = 58631-9) [facility] CenterHIGH SENSITIVITY TROPONIN [id number] 01:56:00 Test Item Value Reference Range Interpretation Comments HIGH SENSITIVITY < pg/ml See_Comment [Automated message] TROPONIN I (test code = The system which 1496137) generated this result transmitted ref erence range: <=17. Th e reference range was not used to interpr et this result as normal/abnormal . Transcript Evaluator ID - DBThe FINANCIAL OFFICER STAT High Sensitivity Troponin-I results should be used in conjunctionwith other diagnostic information such as ECG, clinical observations and information, and patient symptoms to aid in the diagnosis of GA.Ketones, [id number] 01:40:00 Test Item Value Reference Range Interpretation Comments Ketones, Blood (test code = 1103) 0.4 mmol/L <0.4 H Lab Interpretation (test code = Abnormal 96230-5) [facility] CenterKetones, [id number] 01:40:00 Test Item Value Reference Range Interpretation Comments Ketones, Blood (test code = 1103) 0.4 mmol/L <0.4 H Lab Interpretation (test code = Abnormal 80374-0) [facility] CenterKetana, [id number] 01:40:00 Test Item Value Reference Range Interpretation Comments Ketones, Blood (test code = 1103) 0.4 mmol/L <0.4 H Lab Interpretation (test code = Abnormal 09300-3) [facility] CenterKetana, [id number] 01:40:00 Test Item Value Reference Range Interpretation Comments Ketones, Blood (test code = 1103) 0.4 mmol/L <0.4 H Lab Interpretation (test code = Abnormal 06106-1) [facility] CenterKETEZEQUIEL, [id number] 01:40:00 Test Item Value Reference Range Interpretation Comments KETONES, BLOOD (BEAKER) (test code 0.4 mmol/L <0.4 H = 1103) SARS-CoV2/RT-PCR (Asymptomatic ONLY)2021-05-05 01:30:00 Test Item Value Reference Interpretation Comments Range SARS-COV2/RT-PCR Negative Negative The SARS-Co V-2 (test code = target nucleic 75588-5) acids are not detected in thi s [...] om SARS-CoV-2 [facility] a [facility] s suspected of COVID-19 by [...] revoked sooner. Fact Sheet for Healthcare Providers: https://www.[employer]/Documents/Xp ert%20Xpress%20SAR S%20CoV-2/Fact%20S heets/302-3802%20S ARS-COV-2%20HEALTH CARE%20PROVIDERS%2 0FACT%20SHEET.pdf Fact Sheet for Healthcare Patients: https://www.[employer]/Documents/Xp ert%20Xpress%20SAR S%20CoV-2/Fact%20S heets/302-3801%20S ARS-COV-2%20PATIEN T%20FACT%20SHEET.p df Lab Interpretation Normal (test code = 20501-5) [facility]2021-05-05 01:30:00 Test Item Value Reference Interpretation Comments Range SARS-COV2/RT-PCR Negative Negative The SARS-Co V-2 (test code = target nucleic 18942-5) acids are not detected in thi s [...] revoked sooner. Fact Sheet for Healthcare Providers: https://www.[employer]/Documents/Xp ert%20Xpress%20SAR S%20CoV-2/Fact%20S heets/302-3802%20S ARS-COV-2%20HEALTH CARE%20PROVIDERS%2 0FACT%20SHEET.pdf Fact Sheet for Healthcare Patients: https://www.[employer]/Documents/Xp ert%20Xpress%20SAR S%20CoV-2/Fact%20S heets/302-3801%20S ARS-COV-2%20PATIEN T%20FACT%20SHEET.p df Lab Interpretation Normal (test code = 11718-1) [facility] ONLY[facility]2021-05-05 01:30:00 Test Item Value Reference Interpretation Comments Range SARS-COV2/RT-PCR Negative Negative The SARS-Co V-2 (test code = target nucleic 84365-2) acids are not detected in thi s [...] revoked sooner. Fact Sheet for Healthcare Providers: https://www.[employer]/Documents/Xp ert%20Xpress%20SAR S%20CoV-2/Fact%20S heets/302-3802%20S ARS-COV-2%20HEALTH CARE%20PROVIDERS%2 0FACT%20SHEET.pdf Fact Sheet for Healthcare Patients: https://www.[employer]/Documents/Xp ert%20Xpress%20SAR S%20CoV-2/Fact%20S heets/302-3801%20S ARS-COV-2%20PATIEN T%20FACT%20SHEET.p df Lab Interpretation Normal (test code = 27699-8) [facility] (Asymptomatic ONLY)2021-05-05 01:30:00 Test Item Value Reference Interpretation Comments Range SARS-COV2/RT-PCR Negative Negative The SARS-Co V-2 (test code = target nucleic 13255-6) acids are not detected in thi s [...] revoked sooner. Fact Sheet for Healthcare Providers: https://www.[employer]/Documents/Xp ert%20Xpress%20SAR S%20CoV-2/Fact%20S heets/3023802%20S ARS-COV-2%20HEALTH CARE%20PROVIDERS%2 0FACT%20SHEET.pdf Fact Sheet for Healthcare Patients: https://www.[employer]/Documents/Xp ert%20Xpress%20SAR S%20CoV-2/Fact%20S heets/302-3801%20S ARS-COV-2%20PATIEN T%20FACT%20SHEET.p df Lab Interpretation Normal (test code = 64280-5) [facility])2021-05-05 01:30:00 Test Item Value Reference Range Interpretation Comments SARS-COV2/RT-PCR Negative Negative The SARS-Co V-2 target (test code = nucleic acids a re not 7387307) detected in thi s specimen. Negative result [...] This SARS CoV-2 test is a rapid, real-odug e RT-PCR test intended for th e [...] revoked sooner. Fact Sheet for Healthcare Providers: https://www.[employer]/Documents/Xpert%20Xpress%20SARS%20CoV-2/Fact%20Sheets/3023802%20SARS-COV -2%20HEALTHCARE%20PROVIDERS%20FACT%20SHEET.pdf Fact Sheet for Healthcare Patients: https://www.[employer]/Documents/Xpert %20Xpress%20SARS%20CoV-2/Fact%20Sheets/3023801%41UWSC-LIS-9%20PATIENT%20FACT%20 SHEET.pdfBlood gas, [id number] 01:22:00 Test Item Value Reference Range Interpretation [...] Niranjan (test code = 21 mmol/L 21-29 37156-6) Base Excess, Niranjan (test -4.5 mmol/L -2-3 L code = 1927-3) Patient Temperature 37.0 (test code = 8310-5) FIO2 (test code = 1819) 21 Lab Interpretation Abnormal (test code = 16227-8) [facility] Center[facility], [id number] 01:22:00 Test Item Value Reference Range Interpretation [...] Niranjan (test code = 21 mmol/L 21-29 87028-7) Base Excess, Niranjan (test -4.5 mmol/L -2-3 L code = 1927-3) Patient Temperature 37.0 (test code = 8310-5) FIO2 (test code = 1819) 21 Lab Interpretation Abnormal (test code = 62191-1) [facility] gas, [id number] 01:22:00 Test Item Value Reference Range Interpretation [...] Niranjan (test code = 21 mmol/L 21-29 59761-7) Base Excess, Niranjan (test -4.5 mmol/L -2-3 L code = 1927-3) Patient Temperature 37.0 (test code = 8310-5) FIO2 (test code = 1819) 21 Lab Interpretation Abnormal (test code = 31759-9) [facility] gas, [id number] 01:22:00 Test Item Value Reference Range Interpretation [...] Niranjan (test code = 21 mmol/L 21-29 78968-7) Base Excess, Niranjan (test -4.5 mmol/L -2-3 L code = 1927-3) Patient Temperature 37.0 (test code = 8310-5) FIO2 (test code = 1819) 21 Lab Interpretation Abnormal (test code = 26879-2) [facility], [id number] 01:22:00 Test Item Value Reference Range Interpretation [...] (BEAKER) (test code = 1819) 21.0 ECG/EKG [id number] 23:15:17Cherie Faustin MD 05/05/2021 2:11 AMECG/EKG Interpretation Date/Time: 05/04/2021 11:26 PMPerformed by: Cherie Faustin MDAuthorized by: Cherie Faustin MD The ECG was interpreted by ED physician. The ECG is interpreted as sinus rhythm. Rate is normal rate. Heart rate is 91 BPM.ST segments normal. T-wave inversion in lead(s) V1 and V2. Clinical Impression: normal ECGK[facility] CenterECG/EKG Interpretation 2021-05-04 23:15:17Cherie Faustin MD 05/05/2021 2:11 AMECG/EKG Interpretation Date/Time: 05/04/2021 11:26 PMPerformed by: Cherie Faustin MDAuthorized by: Cherie Faustin MD The ECG was interpreted by ED physician. The ECG is interpreted as sinus rhythm. Rate is normal rate. Heart rate is 91 BPM.ST segments normal. T-wave inversion in lead(s) V1 and V2. Clinical Impression: normal ECGKaiser Manteca Medical CenterECG/EKG Interpretation 2021-05-04 23:15:Cherie Guerra MD 05/05/2021 2:11 AMECG/EKG Interpretation Date/Time: 05/04/2021 11:26 PMPerformed by: Cherie Faustin MDAuthorized by: Cherie Faustin MD The ECG was interpreted by ED physician. The ECG is interpreted as sinus rhythm. Rate is normal rate. Heart rate is 91 BPM.ST segments normal. T-wave inversion in lead(s) V1 and V2. Clinical Impression: normal ECGKaiser [facility]eca Medical CenterECG/EKG Interpretation 2021-05-04 23:15:Cherie Guerra MD 05/05/2021 2:11 AMECG/EKG Interpretation Date/Time: 05/04/2021 11:26 PMPerformed by: Cherie Faustin MDAuthorized by: Cherie Faustin MD The ECG was interpreted by ED physician. The ECG is interpreted as sinus rhythm. Rate is normal rate. Heart rate is 91 BPM.ST segments normal. T-wave inversion in lead(s) V1 and V2. Clinical Impression: normal ECGKaiser Manteca Medical CenterHEPATIC FUNCTION PANEL 2021-05-04 22:01:00 Test Item Value Reference Range Interpretation [...] Specimen moderately (test code = 347) hemolyzed Transcript Evaluator ID - [id number] 21:53:00 Test Item Value Reference Range Interpretation Comments Amylase (test code = 143 U/L 25-125 H Specime n 1798-8) markedly hemolyzed TORRES (test code = TORRES) Transcript Evaluator ID - DB Lab Interpretation Abnormal (test code = 17496-6) [facility] CenterLipase2021-08-23 21:53:00 Test Item Value Reference Range Interpretation Comments Lipase (test code = 3040-3) 97 U/L 8-78 H TORRES (test code = TORRES) Transcript Evaluator ID - DB Lab Interpretation (test Abnormal code = 30035-0) [facility] CenterAmylase2021-08-23 21:53:00 Test Item Value Reference Range Interpretation Comments Amylase (test code = 143 U/L 25-125 H Specime n 1798-8) markedly hemolyzed TORRES (test code = TORRES) Transcript Evaluator ID - DB Lab Interpretation Abnormal (test code = 94918-8) [facility] CenterLipase2021-08-23 21:53:00 Test Item Value Reference Range Interpretation Comments Lipase (test code = 3040-3) 97 U/L 8-78 H TORRES (test code = TORRES) Transcript Evaluator ID - DB Lab Interpretation (test Abnormal code = 24202-2) [facility] CenterAmylase2021-08-23 21:53:00 Test Item Value Reference Range Interpretation Comments Amylase (test code = 143 U/L 25-125 H Specime n 1798-8) markedly hemolyzed TORRES (test code = TORRES) Transcript Evaluator ID - DB Lab Interpretation Abnormal (test code = 35761-7) [facility] CenterLipase2021-08-23 21:53:00 Test Item Value Reference Range Interpretation Comments Lipase (test code = 3040-3) 97 U/L 8-78 H TORRES (test code = TORRES) Transcript Evaluator ID - DB Lab Interpretation (test Abnormal code = 77002-6) [facility] CenterAmylase2021-08-23 21:53:00 Test Item Value Reference Range Interpretation Comments Amylase (test code = 143 U/L 25-125 H Specime n 1798-8) markedly hemolyzed TORRES (test code = TORRES) Transcript Evaluator ID - DB Lab Interpretation Abnormal (test code = 90960-4) [facility] CenterLipase2021-08-23 21:53:00 Test Item Value Reference Range Interpretation Comments Lipase (test code = 3040-3) 97 U/L 8-78 H TORRES (test code = TORRES) Transcript Evaluator ID - DB Lab Interpretation (test Abnormal code = 73311-5) [facility] CenterBASIC METABOLIC [id number] 21:53:00 Test Item Value Reference Range Interpretation [...] S NOT APPLICABLE FOR DIALYSIS PATIEN TS. Transcript Evaluator ID - [id number] 21:53:00 Test Item Value Reference Range Interpretation Comments AMYLASE (BEAKER) (test 143 U/L 25-125 H Speci men markedly code = 349) hemolyzed Transcript Evaluator ID - [id number] 21:53:00 Test Item Value Reference Range Interpretation Comments LIPASE (BEAKER) (test code = 749) 97 U/L 8-78 H Transcript Evaluator ID - DBCBC W/PLT COUNT & AUTO [id number] 19:51:00 Test Item Value Reference Range Interpretation [...] PERCENT (BEAKER) (test code = 2801) POC-Glucose [id number] 08:41:00 Test Item Value Reference Range Interpretation Comments POC-Glucose Meter (test 104 mg/dL 70-110 : TE STED AT [facility] code = 1538) [address] [place] [address], 770 30: Transcript Evaluator/Techni aldo ID = [id number] for HUSSEIN LEMON Lab Interpretation (test Normal code = 88809-2) [facility]-Glucose [id number] 08:41:00 Test Item Value Reference Range Interpretation Comments POC-Glucose Meter (test 104 mg/dL 70-110 : TE STED AT [facility] code = 1538) [address] [place] [address], 770 30: Transcript Evaluator/Techni aldo ID = [id number] for HUSSEIN LEMON Lab Interpretation (test Normal code = 75584-7) [facility]-Glucose [id number] 08:41:00 Test Item Value Reference Range Interpretation Comments POC-Glucose Meter (test 104 mg/dL 70-110 : TE STED AT [facility] code = 1538) [address] [place] [address], 770 30: Transcript Evaluator/Techni aldo ID = [id number] for HUSSEIN LEMON Lab Interpretation (test Normal code = 50209-9) [facility]-Glucose [id number] 08:41:00 Test Item Value Reference Range Interpretation Comments POC-Glucose Meter (test 104 mg/dL 70-110 : TE STED AT [facility] code = 1538) [address] [place] [address], 770 30: Transcript Evaluator/Techni aldo ID = [id number] for HUSESIN LEMON Lab Interpretation (test Normal code = 37616-9) [facility]-GLUCOSE [id number] 08:41:00 Test Item Value Reference Range Interpretation Comments POC-GLUCOSE METER 104 mg/dL 70-110 : TESTED A T [facility] 6720 (BEAKER) (test code = [facility] [place] [facility] [address]: Transcript Evaluator/Techni aldo ID = [id number] for HUSSEIN DAVID Comprehensive metabolic [id number] 06:49:00 Test Item Value Reference Range Interpretation Comments Protein, Total (test 6.8 See_Comment [Autom ated code = 2885-2) message] The system which generated this result transmit lane reference range : 6.0 - 8.3 gm/dL . The reference range was not u sed to interpret th is result as normal/abnormal . Albumin (test code = 3.5 g/dL 3.5-5 18500-2) Alkaline Phosphatase 44 U/L 40-150 (test code = 6768-6) Total Bilirubin (test 0.3 mg/dL 0.2-1.2 code = 1974-10) Sodium (test code = 139 meq/L 292-247 9982-2) Potassium (test code 3.8 meq/L 3.5-5.1 = 2823-3) Chloride (test code = 104 meq/L 98-107 2075-0) CO2 (test code = 27 meq/L 22-29 2028-9) BUN (test code = 12 mg/dL 7-21 3094-0) Creatinine (test code 1.05 mg/dL 0.57-1.25 = 2160-0) Glucose (test code = 79 mg/dL 70-105 2345-7) Calcium (test code = 8.4 mg/dL 8.4-10.2 56353-3) AST (test code = 49 U/L 5-34 H 1920-8) ALT (test code = 41 U/L 6-55 1742-6) EGFR (test code = 52 mL/min/1.[address] [place] [address]-4) NOT ACCURATE CREATININE CLEARANCE IN PREDICTING GLOMERULAR FILTRATION RATE . ESTIMATED GFR I S NOT APPLICABLE FOR DIALYSIS PATIEN TORRES (test code = TORRES) Transcript Evaluator ID - HUMBLE M Lab Interpretation Abnormal (test code = 83611-9) [facility] [id number] 06:49:00 Test Item Value Reference Range Interpretation Comments Protein, Total (test 6.8 See_Comment [Autom ated code = 2885-2) message] The system which generated this result transmit lane reference range : 6.0 - 8.3 gm/dL . The reference range was not u sed to interpret th is result as normal/abnormal . Albumin (test code = 3.5 g/dL 3.5-5 41368-7) Alkaline Phosphatase 44 U/L 40-150 (test code = 6768-6) Total Bilirubin (test 0.3 mg/dL 0.2-1.2 code = 1974-10) Sodium (test code = 139 meq/L 844-659 0243-2) Potassium (test code 3.8 meq/L 3.5-5.1 = 2823-3) Chloride (test code = 104 meq/L 98-107 5-0) CO2 (test code = 27 meq/L 2028-05) BUN (test code = 12 mg/dL - 3094-0) Creatinine (test code 1.05 mg/dL 0.57-1.25 = 2160-0) Glucose (test code = 79 mg/dL 70-105 2345-7) Calcium (test code = 8.4 mg/dL 8.4-10.2 96697-5) AST (test code = 49 U/L 5-34 H 192-8) ALT (test code = 41 U/L 6-55 1741-6) EGFR (test code = 52 mL/min/1.[address] [place] [address]-7) NOT ACCURATE CREATININE CLEARANCE IN PREDICTING GLOMERULAR FILTRATION RATE . ESTIMATED GFR I S NOT APPLICABLE FOR DIALYSIS PATIEN TS. TORRES (test code = TORRES) Transcript Evaluator ID - HUMBLE M Lab Interpretation Abnormal (test code = 91231-8) [facility] [id number] 06:49:00 Test Item Value Reference Range Interpretation Comments Protein, Total (test 6.8 See_Comment [Autom ated code = 2885-2) message] The system which generated this result transmit lane reference range : 6.0 - 8.3 gm/dL . The reference range was not u sed to interpret th is result as normal/abnormal . Albumin (test code = 3.5 g/dL 3.5-5 26622-1) Alkaline Phosphatase 44 U/L 40-150 (test code = 6768-6) Total Bilirubin (test 0.3 mg/dL 0.2-1.2 code = 1974-) Sodium (test code = 139 meq/L 088-085 1555-2) Potassium (test code 3.8 meq/L 3.5-5.1 = 2823-3) Chloride (test code = 104 meq/L 98-107 5-0) CO2 (test code = 27 meq/L 2028-05) BUN (test code = 12 mg/dL 04-01 3094-0) Creatinine (test code 1.05 mg/dL 0.57-1.25 = 2160-0) Glucose (test code = 79 mg/dL 70-105 2345-7) Calcium (test code = 8.4 mg/dL 8.4-10.2 20737-4) AST (test code = 49 U/L 5-34 H 1920-8) ALT (test code = 41 U/L 6-55 2-6) EGFR (test code = 52 mL/min/1.[address] [place] [address]-1) NOT ACCURATE CREATININE CLEARANCE IN PREDICTING GLOMERULAR FILTRATION RATE . ESTIMATED GFR I S NOT APPLICABLE FOR DIALYSIS PATIEN TS. TORRES (test code = TORRES) Transcript Evaluator ID - HUMBLE Porter Lab Interpretation Abnormal (test code = 67543-9) [facility] [id number] 06:49:00 Test Item Value Reference Range Interpretation Comments Protein, Total (test 6.8 See_Comment [Autom ated code = 2885-2) message] The system which generated this result transmit lane reference range : 6.0 - 8.3 gm/dL . The reference range was not u sed to interpret th is result as normal/abnormal . Albumin (test code = 3.5 g/dL 3.5-5 41439-0) Alkaline Phosphatase 44 U/L 40-150 (test code = 6768-6) Total Bilirubin (test 0.3 mg/dL 0.2-1.2 code = 1974-2) Sodium (test code = 139 meq/L 029-561 8726-2) Potassium (test code 3.8 meq/L 3.5-5.1 = 2823-3) Chloride (test code = 104 meq/L 98-107 5-0) CO2 (test code = 27 meq/L 22-29 2027-9) BUN (test code = 12 mg/dL 04-01 3094-0) Creatinine (test code 1.05 mg/dL 0.57-1.25 = 2160-0) Glucose (test code = 79 mg/dL 70-105 2345-7) Calcium (test code = 8.4 mg/dL 8.4-10.2 76475-3) AST (test code = 49 U/L 5-34 H 1920-8) ALT (test code = 41 U/L 6-55 1742-6) EGFR (test code = 52 mL/min/1.[address] [place] [address]-5) NOT ACCURATE CREATININE CLEARANCE IN PREDICTING GLOMERULAR FILTRATION RATE . ESTIMATED GFR I S NOT APPLICABLE FOR DIALYSIS PATIEN TS. TORRES (test code = TORRES) Transcript Evaluator ID - HUMBLE M Lab Interpretation Abnormal (test code = 89557-5) [facility] [id number] 06:49:00 Test Item Value Reference Range Interpretation [...] S NOT APPLICABLE FOR DIALYSIS PATIEN TS. Transcript Evaluator ID - HUMBLE MPOCT-GLUCOSE [id number] 16:54:00 Test Item Value Reference Range Interpretation Comments POC-GLUCOSE METER 171 mg/dL 70-110 H : TESTED A T [facility] 67[address] (ZONI[place]ALINA) (test code = [place] [facility], 1538) [address]: Transcript Evaluator/Techni aldo ID = [id number] for ALBINO GONZALEZ Hemoglobin [id number] 15:22:00 Test Item Value Reference Range Interpretation Comments Hemoglobin A1C (test code = 4548-4) 6.2 % 4.3-6.1 H Lab Interpretation (test code = Abnormal 42754-0) [facility] Center[facility] [id number] 15:22:00 Test Item Value Reference Range Interpretation Comments Hemoglobin A1C (test code = 4548-4) 6.2 % 4.3-6.1 H Lab Interpretation (test code = Abnormal 34341-2) [facility] [id number] 15:22:00 Test Item Value Reference Range Interpretation Comments Hemoglobin A1C (test code = 4548-4) 6.2 % 4.3-6.1 H Lab Interpretation (test code = Abnormal 54544-8) [facility] CenterH[facility] [id number] 15:22:00 Test Item Value Reference Range Interpretation Comments Hemoglobin A1C (test code = 4548-4) 6.2 % 4.3-6.1 H Lab Interpretation (test code = Abnormal 75298-7) [facility] CenterHEMO[facility]IN [id number] 15:22:00 Test Item Value Reference Range Interpretation Comments HEMOGLOBIN A1C (LIA) (test code = 6.2 % 4.3-6.1 H 368) POCT-GLUCOSE [id number] 12:56:00 Test Item Value Reference Range Interpretation Comments POC-GLUCOSE METER 93 mg/dL 70-110 : Notified RN/MD: TESTED (LIA) (test code = AT [facility] [address] 1538) [facility], 770 30: Transcript Evaluator/Techni aldo ID = [id number] for Simm ons, Arely [place], [id number] 12:02:00Reason for exam:->[facility] : 1950 Sex: FFluoroscopic unit utilized for a procedure performed in the OR. No interpretation was requested. Refer to the operative report for findings. Refer to PACS for patient radiation dose information.[facility] Endoscopic Retrograde [id number] 12:02:00Interface, External Ris In - 03/10/2021 12:18 PM CDTFluoroscopic unit utilized for a procedure performed in the OR. No interpretation was requested. Refer to the operative report for findings. Referto PACS for patient radiation dose information.[facility] Endoscopic Retrograde Ch[id number] 12:02:00Interface, External Ris In - 03/10/2021 12:18 PM CDTFluoroscopic unit utilized for a procedure performed in the OR. No interpretation was requested. Refer to the operative report for findings. Referto PACS for patient radiation dose information.[facility] Endoscopic Retrograde Yiakbtglnmfeneewdfoouxje2917-12-30 12:02:00Interface, External Ris In - 03/10/2021 12:18 PM CDTFluoroscopic unit utilized for a procedure performed in the OR. No interpretation was requested. Refer to the operative report for findings. Referto PACS for patient radiation dose information.[facility] Endoscopic Retrograde Jeczhvocmgkaykgdyvgfwohd3976-42-07 12:02:00Interface, External Ris In - 03/10/2021 12:18 PM CDTFluoroscopic unit utilized for a procedure performed in the OR. No interpretation was requested. Refer to the operative report for findings. Referto PACS for patient radiation dose information.[facility] CenterPO[facility] [id number] 09:27:00 Test Item Value Reference Range Interpretation Comments POC-GLUCOSE METER 74 mg/dL 70-110 : [facility] (test code = [place], 1538) [address]: Transcript Evaluator/Techni aldo ID = [id number] for ALBINO ROSS COMPREHENSIVE METABOLIC [id number] 05:49:00 Test Item Value Reference Range Interpretation [...] S NOT APPLICABLE FOR DIALYSIS PATIEN TS. Transcript Evaluator ID - HUMBLE [facility] (Hemogram only)2021-03-10 05:10:00 Test Item Value Reference Range Interpretation Comments WBC (test code = 6690-2) 9.1 See_Comment [A utomated message] The system [employer] generated this result transmitted ref erence range: 3.5 - 10 .5 K/L. The refe rence range was not u sed to interpret this result as normal/abnor mal. RBC (test code = 789-8) 3.57 See_Comment L [Au tomated message] The system [employer] generated this result transmitted ref erence range: 3.93 - 5 .22 M/L. The refe rence range was not u sed to interpret this result as normal/abnor mal. MCHC (test code = 786-4) 30.9 See_Comment L [A utomated message] The system [employer] generated this result transmitted ref erence range: [...] See_Comment [Aut omated message] 777-3) The system [employer] generated this result transmitted ref erence range: 150 - 45 0 K/CU MM. The referen ce range was not u sed to interpret this result as normal/abnor mal. MPV (test code = 9.3 fL 9.4-12.3 L 02146-2) nRBC (test code = 413) 0 See_Comment [Aut omated message] The system [employer] generated this result transmitted ref erence range: 0 - 0 /1 00 WBC. The refere nce range was not u sed to interpret this result as normal/abnor mal. Lab Interpretation (test Abnormal code = 94492-3) [facility] (Hemogram only)2021-03-10 05:10:00 Test Item Value Reference Range Interpretation Comments WBC (test code = 6690-2) 9.1 See_Comment [A utomated message] The system [employer] generated this result transmitted ref erence range: 3.5 - 10 .5 K/L. The refe rence range was not u sed to interpret this result as normal/abnor mal. RBC (test code = 789-8) 3.57 See_Comment L [Au tomated message] The system [employer] generated this result transmitted ref erence range: 3.93 - 5 .22 M/L. The refe rence range was not u sed to interpret this result as normal/abnor mal. MCHC (test code = 786-4) 30.9 See_Comment L [A utomated message] The system [employer] generated this result transmitted ref erence range: [...] See_Comment [Aut omated message] 777-3) The system [employer] generated this result transmitted ref erence range: 150 - 45 0 K/CU MM. The referen ce range was not u sed to interpret this result as normal/abnor mal. MPV (test code = 9.3 fL 9.4-12.3 L 06163-6) nRBC (test code = 413) 0 See_Comment [Aut omated message] The system [employer] generated this result transmitted ref erence range: 0 - 0 /1 00 WBC. The refere nce range was not u sed to interpret this result as normal/abnor mal. Lab Interpretation (test Abnormal code = 40257-3) [facility] (Hemogram only)2021-03-10 05:10:00 Test Item Value Reference Range Interpretation Comments WBC (test code = 6690-2) 9.1 See_Comment [A utomated message] The system [employer] generated this result transmitted ref erence range: 3.5 - 10 .5 K/L. The refe rence range was not u sed to interpret this result as normal/abnor mal. RBC (test code = 789-8) 3.57 See_Comment L [Au tomated message] The system [employer] generated this result transmitted ref erence range: 3.93 - 5 .22 M/L. The refe rence range was not u sed to interpret this result as normal/abnor mal. MCHC (test code = 786-4) 30.9 See_Comment L [A utomated message] The system [employer] generated this result transmitted ref erence range: [...] See_Comment [Aut omated message] 777-3) The system [employer] generated this result transmitted ref erence range: 150 - 45 0 K/CU MM. The referen ce range was not u sed to interpret this result as normal/abnor mal. MPV (test code = 9.3 fL 9.4-12.3 L 24661-4) nRBC (test code = 413) 0 See_Comment [Aut omated message] The system [employer] generated this result transmitted ref erence range: 0 - 0 /1 00 WBC. The refere nce range was not u sed to interpret this result as normal/abnor mal. Lab Interpretation (test Abnormal code = 44225-2) [facility] (Hemogram only)2021-03-10 05:10:00 Test Item Value Reference Range Interpretation Comments WBC (test code = 6690-2) 9.1 See_Comment [A utomated message] The system [employer] generated this result transmitted ref erence range: 3.5 - 10 .5 K/L. The refe rence range was not u sed to interpret this result as normal/abnor mal. RBC (test code = 789-8) 3.57 See_Comment L [Au tomated message] The system [employer] generated this result transmitted ref erence range: 3.93 - 5 .22 M/L. The refe rence range was not u sed to interpret this result as normal/abnor mal. MCHC (test code = 786-4) 30.9 See_Comment L [A utomated message] The system [employer] generated this result transmitted ref erence range: [...] See_Comment [Aut omated message] 777-3) The system [employer] generated this result transmitted ref erence range: 150 - 45 0 K/CU MM. The referen ce range was not u sed to interpret this result as normal/abnor mal. MPV (test code = 9.3 fL 9.4-12.3 L 94465-8) nRBC (test code = 413) 0 See_Comment [Aut omated message] The system [employer] generated this result transmitted ref erence range: 0 - 0 /1 00 WBC. The refere nce range was not u sed to interpret this result as normal/abnor mal. Lab Interpretation (test Abnormal code = 59765-1) [facility] (HEMOGRAM ONLY)2021-03-10 05:10:00 Test Item [...] 0-0 (BEAKER) (test code = 413) POCT-GLUCOSE [id number] 00:05:00 Test Item Value Reference Range Interpretation Comments POC-GLUCOSE METER 83 mg/dL 70-110 : TESTED A T [facility] [address] [facility] (test code = [place], 1538) [address]: Transcript Evaluator/Techni aldo ID = [id number] for BRENDA VENCES SARS-COV2/RT-PCR [facility]2021-03-09 23:58:00 Test Item Value Reference Range Interpretation Comments SARS-COV2/RT-PCR (test Negative Not Detected, Negative, code = 5309574) See external report for linked test SARS-COV-2 PERFORMING LAB [facility] SHIV (test code = 3429552) Negative result for this test determines that [...] 564(g) of the Act.Fact Sheet for Healthcare Providers:https://www.TASCET.Brandwatch/sites/default/files/product/documents/Fact_Shee a_HC_Oixwpzcmw_Chcy_MUCF-FeJ-4.pdfFact Sheet for Healthcare Patients:https://www.[employer]ASC[employer].Brandwatch/sites/default/files/product/ documents/Ymlh_Tdeou_Qgwdajqu_Stxa_ITFS-PbO-4.pdfPerforming Laboratory:[facility], [place] [address]SHVZ-[id number] METER 2021-03-09 17:34:00 Test Item Value Reference Range Interpretation Comments POC-GLUCOSE METER 97 mg/dL 70-110 : TESTED A T [facility] 6720 (LIA) (test code = [place] [facility], 1538) [address]: Transcript Evaluator/Techni aldo ID = [id number] for ALBINO ROSS MR, ABDOMEN, [id number] 17:11:00Unlisted Reason for Exam - Click Yes and Enter Reason Below->NoPatient with hyperdense material seen in distal CBD on [facility] : 1950 Sex: FFINAL [...] Aly Verified Date/Time: 03/09/2021 17:11:18 Reading Location: [address] Transitional Reading Room MR abdomen without IV contrast [id number] 17:11:00 Interface, External Ris In - 03/09/2021 [...] MDReport Verified Date/Time: 03/09/2021 17:11:18 Reading Location: [address] Transitional [facility] [id number] 17:11:00 Interface, External Ris In - 03/09/2021 [...] Alyort Verified Date/Time: 03/09/2021 17:11:18 Reading Location: [address] Transitional Reading Room [facility] without IV contrast [id number] 17:11:00 Interface, External Ris In - 03/09/2021 [...] MDReport Verified Date/Time: 03/09/2021 17:11:18 Reading Location: [address] Transitional Reading Room [facility] without IV contrast [id number] 17:11:00 Interface, External Ris In - 03/09/2021 [...] MDReport Verified Date/Time: 03/09/2021 17:11:18 Reading Location: [facility] C013 Transitional Reading Room [facility]PO[facility] [id number] 12:41:00 Test Item Value Reference Range Interpretation Comments POC-GLUCOSE METER 92 mg/dL 70-110 : TESTED A T [facility] [address] (BEAKER) (test code = [place], 1538) [address]: Transcript Evaluator/Techni aldo ID = [id number] for ALBINO ROSS Urinalysis w/Microscopic + Reflex to [id number] 11:21:00 Test Item Value Reference Range Interpretation Comments Color, UA (test code Light Yellow = 5778-6) Clarity, UA (test Clear code = 5767-9) Specific [place], UA 1.033 1.001-1.035 (test code = 5811-5) pH, UA (test code = 5.5 5.0-8.0 5803-2) Protein, UA (test Negative Negative code = 37180-7) Glucose, UA (test Negative Negative code = 365) Ketones, UA (test Negative Negative code = 2514-8) Bilirubin, UA (test Negative Negative code = 89229-4) Blood, UA (test code Trace Negative A = 61341-1) Nitrite, UA (test Negative Negative code = 5802-4) Leukocytes, UA (test Negative Negative code = 5799-2) Urobilinogen, UA 0.2 mg/dL 0.2-1 (test code = 78907-1) RBC, UA (test code = 2 See_Comment [Autom ated 00729-1) message] The system which generated this result [...] Bacteria, UA (test None Seen code = 65918-5) Mucus (test code = Rare 8247-9) Squam Epithel, UA 1 See_Comment [Automate d (test code = 07524-1) messag e] The system which generated this result transmit lane reference range : /HPF. The reference range was not used to interpret this result as normal/abnormal . Crystals, Urine (test None Seen code = 15461-7) Specimen Source (test code = 2795) TORRES (test code = TORRES) Transcript Evaluator ID - [auto]Transcript Evaluator ID - tech Lab Interpretation Abnormal (test code = 94035-8) [facility] + Reflex to Culture 2021-03-09 11:21:00 Test Item Value Reference Range Interpretation Comments Color, UA (test code Light Yellow = 5778-6) Clarity, UA (test Clear code = 5767-9) Specific [place], UA 1.033 1.001-1.035 (test code = 5811-5) pH, UA (test code = 5.5 5.0-8.0 5803-2) Protein, UA (test Negative Negative code = 81884-9) Glucose, UA (test Negative Negative code = 365) Ketones, UA (test Negative Negative code = 2514-8) Bilirubin, UA (test Negative Negative code = 15078-7) Blood, UA (test code Trace Negative A = 34398-4) Nitrite, UA (test Negative Negative code = 5802-4) Leukocytes, UA (test Negative Negative code = 5799-2) Urobilinogen, UA 0.2 mg/dL 0.2-1 (test code = 36421-0) RBC, UA (test code = 2 See_Comment [Autom ated 73035-4) message] The system which generated this result [...] Bacteria, UA (test None Seen code = 45824-1) Mucus (test code = Rare 8247-9) Squam Epithel, UA 1 See_Comment [Automate d (test code = 33996-7) messag e] The system which generated this result transmit lane reference range : /HPF. The reference range was not used to interpret this result as normal/abnormal . Crystals, Urine (test None Seen code = 20156-8) Specimen Source (test code = 2795) TORRES (test code = TORRES) Transcript Evaluator ID - [auto]Transcript Evaluator ID - tech Lab Interpretation Abnormal (test code = 23212-1) [facility]/Microscopic + Reflex to Culture 2021-03-09 11:21:00 Test Item Value Reference Range Interpretation Comments Color, UA (test code Light Yellow = 5778-6) Clarity, UA (test Clear code = 5767-9) Specific [place], UA 1.033 1.001-1.035 (test code = 5811-5) pH, UA (test code = 5.5 5.0-8.0 5803-2) Protein, UA (test Negative Negative code = 28984-1) Glucose, UA (test Negative Negative code = 365) Ketones, UA (test Negative Negative code = 2514-8) Bilirubin, UA (test Negative Negative code = 75924-0) Blood, UA (test code Trace Negative A = 52156-0) Nitrite, UA (test Negative Negative code = 5802-4) Leukocytes, UA (test Negative Negative code = 5799-2) Urobilinogen, UA 0.2 mg/dL 0.2-1 (test code = 39641-2) RBC, UA (test code = 2 See_Comment [Autom ated 99549-5) message] The system which generated this result [...] Bacteria, UA (test None Seen code = 82735-7) Mucus (test code = Rare 8247-9) Squam Epithel, UA 1 See_Comment [Automate d (test code = 79214-2) messag e] The system which generated this result transmit lane reference range : /HPF. The reference range was not used to interpret this result as normal/abnormal . Crystals, Urine (test None Seen code = 59153-8) Specimen Source (test code = 2795) TORRES (test code = TORRES) Transcript Evaluator ID - [auto]Transcript Evaluator ID - tech Lab Interpretation Abnormal (test code = 89335-4) [facility]/Microscopic + Reflex to Culture 2021-03-09 11:21:00 Test Item Value Reference Range Interpretation Comments Color, UA (test code Light Yellow = 5778-6) Clarity, UA (test Clear code = 5767-9) Specific [place], UA 1.033 1.001-1.035 (test code = 5811-5) pH, UA (test code = 5.5 5.0-8.0 5803-2) Protein, UA (test Negative Negative code = 46556-4) Glucose, UA (test Negative Negative code = 365) Ketones, UA (test Negative Negative code = 2514-8) Bilirubin, UA (test Negative Negative code = 05607-5) Blood, UA (test code Trace Negative A = 27367-4) Nitrite, UA (test Negative Negative code = 5802-4) Leukocytes, UA (test Negative Negative code = 5799-2) Urobilinogen, UA 0.2 mg/dL 0.2-1 (test code = 88953-1) RBC, UA (test code = 2 See_Comment [Autom ated 32893-2) message] The system which generated this result [...] Bacteria, UA (test None Seen code = 43226-4) Mucus (test code = Rare 8247-9) Squam Epithel, UA 1 See_Comment [Automate d (test code = 63285-2) messag e] The system which generated this result transmit lane reference range : /HPF. The reference range was not used to interpret this result as normal/abnormal . Crystals, Urine (test None Seen code = 19222-8) Specimen Source (test code = 2795) TORRES (test code = TORRES) Transcript Evaluator ID - [auto]Transcript Evaluator ID - tech Lab Interpretation Abnormal (test code = 66728-7) [facility]FLEX URINE [id number] 11:21:00 Test Item Value Reference Range Interpretation [...] = 1521) SOURCE(BEAKER) (test code = 2795) Transcript Evaluator ID - [auto]Transcript Evaluator ID - techHEMOGLOBIN [id number] 10:22:00 Test Item Value Reference Range Interpretation Comments HEMOGLOBIN A1C (BEAKER) (test code = 6.1 % 4.3-6.1 368) [id number] 06:48:00 Test Item Value Reference Range Interpretation Comments Magnesium (test code = 2.1 mg/dL 1.6-2.6 78015-8) TORRES (test code = TORRES) Transcript Evaluator ID - ELVIN W Lab Interpretation (test Normal code = 07733-5) [facility] [facility]2021-06-28 06:48:00 Test Item Value Reference Range Interpretation Comments Magnesium (test code = 2.1 mg/dL 1.6-2.6 83194-5) TORRES (test code = TORRES) Transcript Evaluator ID - ELVIN W Lab Interpretation (test Normal code = 20198-5) [facility] Test Item Value Reference Range Interpretation Comments Magnesium (test code = 2.1 mg/dL 1.6-2.6 93090-7) TORRES (test code = TORRES) Transcript Evaluator ID - ELVIN W Lab Interpretation (test Normal code = 90181-3) [facility] 06:48[facility]00 Test Item Value Reference Range Interpretation Comments Magnesium (test code = 2.1 mg/dL 1.6-2.6 96315-0) TORRES (test code = TORRES) Transcript Evaluator ID Carlo Kiran Lab Interpretation (test Normal code = 76384-9) [facility] [id number] 06:48:00 Test Item Value Reference Range Interpretation [...] S NOT APPLICABLE FOR DIALYSIS PATIEN TS. Transcript Evaluator ID Carlo OCONNOR [id number] 06:48:00 Test Item Value Reference Range Interpretation Comments MAGNESIUM (BEAKER) (test code = 2.1 mg/dL 1.6-2.6 627) Transcript Evaluator ID Carlo OCONNOR WHEPATIC FUNCTION [id number] 06:48:00 Test Item Value Reference Range Interpretation [...] (test code = 30 U/L 6-55 347) Transcript Evaluator UNA OCONNOR WPROTHROMBIN [id number] 06:32:00 Test Item Value Reference Range Interpretation Comments PROTIME (BEAKER) 12.9 seconds 11.9-14.2 (test code = 759) INR (BEAKER) (test 0.99 See_Comment [Automat ed message] code = 370) The system [employer] generated this result transmitted ref erence range: [...] code = 2801) MRI Brain wo contrast [id number] 16:25:00Patient Name: RIYA REEVESB: 1950. Age: 67 years. Gender: Female.MR: [id number]. Location: [facility]. Provider: Hollie [...] intracranial abnormality. Mild chronicmicroangiopathic ischemic gliosis. SL: [id number]--Mdhr by: Finesse Dias MDDictated Date/time: 0 02/08/18 17:31Electronically Signed by: Finesse Dias MD 02/08/1817:40FINALREPORTUT PhysiciansMRI Brain w/wo contrast [id number] 13:39:00 Test Item Value Reference Range Interpretation Comments Brain w/wo contrast MRI Cancel Reason: Exam (test code = Brain w/wo Replaced contrast MRI) CT Physicians"
[2022-04-06 10:10] LABS: Absolute Lymphocytes (CBC) 0.7 K/uL (0.7-4.9); Hematocrit 34.2 % (36.0-45.0); Lymphocytes % 4.6 % (15.3-44.8); MCV 85.9 fL (80-100); MPV 7.6 fL (7.6-11.3); RBC Red Blood Cell Count 3.98 M/uL (3.86-4.86)
--- NOTE | 2022-04-06 10:16 | RAD REPORT ---
EXAM DESCRIPTION: RAD - Hip Right 2 View - 04/06/2022 9:45 am CLINICAL HISTORY: PAIN COMPARISON: No comparisons FINDINGS: Subcapital fracture is present with varus angulation of the proximal right femur.
--- NOTE | 2022-04-06 10:20 | RAD REPORT ---
EXAM DESCRIPTION: CT - CTHCSPWOC - 04/06/2022 10:08 am CLINICAL HISTORY: Trauma, head and neck injury. Fall injury, Pain COMPARISON: Head C Spine Mpr Wo Con dated 03/06/2021; Head C Spine Mpr Wo Con dated 09/17/2019 TECHNIQUE: Axial 5 mm thick images of the head were obtained. Axial 2 mm thick images of the cervical spine were obtained with sagittal and coronal reconstruction images generated and reviewed. All CT scans are performed using dose optimization technique as appropriate and may include automated exposure control or mA/KV adjustment according to patient size. FINDINGS: CT HEAD WITHOUT CONTRAST: No acute hemorrhage, hydrocephalus or extra-axial collection is identified.Moderate generalized brain atrophy is present with mild periventricular and deep white matter chronic microvascular ischemic ch anges.No areas of brain edema or midline shift. The paranasal sinuses and mastoids are clear.The calvarium is intact. CT CERVICAL SPINE WITHOUT CONTRAST: No fracture or subluxation.No prevertebral soft tissues swelling is identified. IMPRESSION: No acute intracranial or cervical spine findings.
[2022-04-06 10:27] LABS: Albumin 3.5 g/dL (3.4-5.0); Bilirubin Total 0.3 mg/dL (0.2-1.0); Potassium 4.3 mmol/L (3.5-5.1); Protein, Total 8.3 g/dL (6.4-8.2)
--- NOTE | 2022-04-06 11:02 | RAD REPORT ---
EXAM DESCRIPTION: RAD - Chest Single View - 04/06/2022 10:55 am CLINICAL HISTORY: FEVER Chest pain. COMPARISON: Chest Single View dated 01/11/2022; Chest Single View dated 12/30/2021; Chest Single View d ated 08/23/2021; Abdomen 1 View (KUB) dated 08/11/2021 FINDINGS: Portable technique limits examination quality. Interstitial markings are mildly prominent suggesting mild interstitial pulmonary edema. The heart is mildly enlarged in size. No displaced fractures. IMPRESSION: Mild CHF.
[2022-04-06 11:04] LABS: Urine Blood Trace-intact (Negative); Urine Glucose Negative (Negative); Urine Protein Negative (Negative)
[2022-04-06] MEDS ORDERED: NA CHLORIDE 0.9% 50 ML ONE (11:23)
[2022-04-06] MEDS ORDERED: CEFTRIAXONE 1000 MG/VIAL ONE (11:23)
[2022-04-06 11:38] LABS: Urine Bacteria <20 /HPF (<20); Urine RBC <5 /HPF (None Seen)
--- NOTE | 2022-04-06 11:58 | ER ---
Nurse's Notes [facility] Name: Alberto Botello Age: 71 yrs Sex: Female : 1950 Arrival Date: 04/06/2022 Time: 08:59 Bed 7 Private MD: Diagnosis: Displaced fracture of base of neck of right femur;Fever, unspecified Presentation: 04/06 09:00 Initial Sepsis Screen: Does the patient meet any 2 criteria? No. Patient's initial 9 sepsis screen is negative. Does the patient have a suspected source of infection? No. Patient's initial sepsis screen is negative. 09:04 Chief complaint: EMS states: Toned out for right hip pain, pt fell around 0730 and ha1 family reports she is unable to bare weight. Coronavirus screen: fever, Client presents with at least one sign or symptom that may indicate coronavirus-19. Standard/surgical mask placed on the client. Provider contacted for isolation considerations. Ebola Screen: No symptoms or risks identified at this time. Risk Assessment: Do you want to hurt yourself or someone else? Patient reports no desire to harm self or others. Onset of symptoms was April 06, 2022. 09:04 Method Of Arrival: EMS: [facility] ha1 09:04 Acuity: ART 3 ha1 10:00 Care prior to arrival: None. Mechanism of Injury: Fall out of bed. 9 10:00 Trauma event details: Injury occurred: at home. 9 Triage Assessment: 10:00 General: Appears uncomfortable, Behavior is quiet. Pain: Complains of pain in left jg9 inner thigh and medial aspect of left thigh. Pain:. EENT: No deficits noted. Neuro: Level of Consciousness is awake, alert, Oriented to person, hx of dementia. Cardiovascular: No deficits noted. Respiratory: No deficits noted. GI: No deficits noted. : No deficits noted. Derm: No deficits noted. Musculoskeletal: Parent/caregiver report the patient having weakness in right leg and left leg pain in left leg Patient was ambulating normally yesterday, her knees gave out this morning and the patient fell and has a possible hip ijury. Trauma Activation: Not Applicable Physician: ED Physician; Name: ; Notified At: ; Arrived At: Physician: General Surgeon; Name: ; Notified At: ; Arrived At: Physician: Radiology; Name: ; Notified At: ; Arrived At: Physician: Respiratory; Name: ; Notified At: ; Arrived At: Physician: Lab; Name: ; Notified At: ; Arrived At: Historical: - Allergies: 10:12 No Known Allergies; jg9 - Home Meds: 10:12 alprazolam 2 mg Oral tab 1 tab nightly [Active]; Amitiza 24 mcg Oral cap 1 cap jg9 [Active]; benztropine 0.5 mg Oral tab 1 tab 2 times per day [Active]; citalopram 20 mg tab 1 tab once daily [Active]; Linzess 145 mcg Oral cap 1 cap once daily [Active]; lisinopril 10 mg Oral tab 1 tab once daily [Active]; meclizine 25 mg Oral cap as needed [Active]; [place] 7.5-325 mg Oral tab 1 tab TID [Active]; Protonix 40 mg Oral TbEC 1 tab once daily [Active]; risperadone 0.5 daily [Active]; ursodiol 500 mg Oral tab daily [Active]; Vitamin D Oral 1000 unit daily [Active]; - PMHx: 10:12 Anxiety; Chronic pain; Diabetes - NIDDM; Hepatitis; Hypertension; Osteoporosis; jg9 Pancreatitis; - Social history:: Smoking status: unknown. - Immunization history: Last tetanus immunization: unknown. Screenin:07 Abuse screen: Denies threats or abuse. Denies injuries from another. Tuberculosis jg9 screening: No symptoms or risk factors identified. 10:07 Nutritional screening: No deficits noted. Fall Risk Fall in past 12 months (25 points). jg9 Primary Survey: 09:30 NO uncontrolled hemorrhage observed. A: The client is awake and alert. The airway is jg9 patent. The client is alert. Airway: patent. Breathing/Chest: Spontaneous respiratory effort, equal unlabored respirations, breath sounds clear bilaterally, regular pattern, symmetrical chest rise and fall. Respiratory effort: spontaneous, unlabored, Breath sounds: clear, bilaterally. Respiratory pattern: regular, Chest inspection: symmetrical rise and fall of the chest. Circulation: No external hemorrhage present. Regular and strong central pulse, skin warm/dry/normal color. Disability Client is alert. Exposure/Environment: A warming method has been applied: A warm blanket has been provided to the patient. 10:15 Reassessment Alertness and Airway: Awake and alert. The airway is patent. Breathing: jg9 Circulation: No external hemorrhage noted. Regular and strong central pulse, skin warm/dry/normal color. Disability: Alert. Secondary Survey: 10:48 HEENT: No deficits noted. Gastrointestinal: No deficits noted. : No deficits noted. jg9 Musculoskeletal: Reports pain in right leg. Assessment: 10:11 Reassessment: No changes from previously documented assessment. jg9 11:22 Reassessment: Patient is having relief in pain with medications given Patient states jg9 feeling better. 15:47 Reassessment: report called to RN at [facility] transporting patient now. jg9 Vital Signs: 09:37 BP 135 / 71; Pulse 91; Resp 20; Temp 99.2(O); Pulse Ox 96% on R/A; Weight 58.97 kg (R); mb7 Height 5 ft. 6 in. (167.64 cm) (R); 10:45 BP 133 / 78; Pulse 92; Resp 20 S; Pulse Ox 97% on R/A; Pain 8/10; jg9 11:45 BP 140 / 80; Pulse 80; Resp 18 S; Pulse Ox 92% on 2 lpm NC; jg9 12:45 BP 130 / 78; Pulse 88; Resp 17; Pulse Ox 94% on 2 lpm NC; jg9 13:15 BP 122 / 77; Pulse 87; Resp 17 S; Pulse Ox 95% on 2 lpm NC; jg9 15:30 BP 128 / 78; Pulse 88; Resp 18 S; Pulse Ox 95% on 2 lpm NC; Pain 5/10; jg9 09:37 Body Mass Index 20.98 (58.97 kg, 167.64 cm) mb7 Angelita Coma Score: 10:00 Eye Response: spontaneous(4). Verbal Response: confused(4). Motor Response: obeys jg9 commands(6). Total: 14. Trauma Score (Adult): 10:00 Eye Response: spontaneous(1); Verbal Response: confused(1); Motor Response: obeys jg9 commands(2); Systolic BP: > 89 mm Hg(4); Respiratory Rate: 10 to 29 per min(4); [place] Score: 14; Trauma Score: 12 ED Course: 08:59 Patient arrived in ED. jl7 09:12 Triage completed. ha1 09:12 Arm band placed on right wrist. ha1 09:18 Ruel Cantu PA is PHCP. jr8 09:18 Rob Galo MD is Attending Physician. jr8 09:37 Placed in gown. Bed in low position. Call light in reach. Side rails up X 1. Door mb7 closed. Noise minimized. Warm blanket given. Client placed on continuous cardiac and pulse oximetry monitoring. NIBP monitoring applied. maintenance team leader on. 09:47 Hip Right 2 View XRAY In Process Unspecified. EDMS 09:48 SARS-COV-2 RT PCR (Document "Date of Onset" if Symptomatic) Sent. mb7 10:02 CBC with Diff Sent. mb7 10:02 CMP Sent. mb7 10:02 Inserted saline lock: 22 gauge in right upper arm, using aseptic technique. Blood mb7 collected. 10:06 Diana Shafer, RN is Primary Nurse. jg9 10:09 CT Head C Spine In Process Unspecified. EDMS 10:09 SARS-COV-2 RT PCR (Document "Date of Onset" if Symptomatic) Sent. mb7 10:10 CBC with Diff Sent. mb7 10:10 CMP Sent. mb7 10:23 Patient maintains SpO2 saturation greater than 95% on room air. Thermoregulation: warm jg9 blanket given to patient. 10:56 Chest Single View XRAY In Process Unspecified. EDMS 11:05 Alejandro cath inserted, using sterile technique, 16 Fr., by ky, returned clear yellow jg9 urine. Patient tolerated well. 11:14 Oxygen administration via nasal cannula \\T\\ 2L/min. mb7 15:36 No provider procedures requiring assistance completed. jg9 15:41 Patient transferred, IV remains in place. jg9 Administered Medications: 10:48 Drug: fentaNYL (PF) 50 mcg Route: IVP; Site: right antecubital; jg9 11:22 Follow up: Response: No adverse reaction; Pain is decreased jg9 10:48 Drug: Zofran (Ondansetron) 4 mg Route: IVP; Site: right antecubital; jg9 11:22 Follow up: Response: No adverse reaction jg9 11:21 Drug: Rocephin (cefTRIAXone) 1 grams Route: IV; Rate: calculated rate; Site: right jg9 antecubital; 12:15 Follow up: IV Status: Completed infusion; IV Intake: 50ml jh6 Medication: 15:48 VIS not applicable for this client. jg9 Intake: 12:15 IV: 50ml; Total: 50ml. jh6 15:48 PO: 0ml; Total: 50ml. jg9 Output: 15:48 Urine: 200ml (Alejandro); Total: 200ml. jg9 Outcome: 11:58 ER care complete, transfer ordered by MD. jr8 15:41 Transferred by ground EMS to [facility], Transfer form completed. jg9 15:41 Condition: stable 15:41 Patient's length of stay in the Emergency Department was greater than 2 hours. transferPatient's length of stay extended due to 15:48 Patient left the ED. jg9 Signatures: Dispatcher [employer] EDMS Ruel Cantu PA PA jr8 Jonas Navarro, RN RN jl7 Diana Canchola RN RN jh6 Shirley Pelayo [facility] Diana Shafer RN RN jg9 Crystal Thompson RN RN ha1 Corrections: (The following items were deleted from the chart) 10:15 10:00 NO uncontrolled hemorrhage observed jg9 jg9 10: 10:00 A: The client is alert. Airway: patent, jg9 jg9 10:15 10:00 Breathing/Chest: Spontaneous respiratory effort, equal unlabored respirations, jg9 breath sounds clear bilaterally, regular pattern, symmetrical chest rise and fall. Respiratory effort: spontaneous, unlabored, Breath sounds: clear, bilaterally. Respiratory pattern: regular, Chest inspection: symmetrical rise and fall of the chest, jg9 10:15 10:00 Circulation: No external hemorrhage present. Regular and strong central pulse, jg9 skin warm/dry/normal color. jg9 10:15 10:00 Disability Client is alert. jg9 jg9 10:15 10:00 Exposure/Environment: A warming method has been applied: A warm blanket has been jg9 provided to the patient. jg9 11:10 09:04 Chief complaint: EMS states: Toned out for right hip pain, pt fell around 0730 jg9 and family reports she is unable to bare weight. ha1 11:11 10:48 Musculoskeletal: Reports pain in left leg jg9 jg9 15:39 15:35 BP 123 / 74; Pulse 90bpm; Resp 19bpm; Spontaneous; Pulse Ox 95% RA; jg9 jg9
--- NOTE | 2022-04-06 11:59 | EDPHYS ---
Physician Documentation [facility] Name: Alberto Botello Age: 71 yrs Sex: Female : 1950 Arrival Date: 04/06/2022 Time: 08:59 Bed 7 Private MD: LEOLA Physician Rob Galo HPI: 04/06 10:28 This 71 yrs old Female presents to ER via EMS with complaints of Hip Injury. jr8 10:28 The patient or guardian reports decreased range of motion, pain. that occurred at home, jr8 sustained from a fall, the patient slipped, the right lower extremity is shortened, The patient is not able to ambulate. Patient is not able to bear weight. There is no radiation of the patient's discomfort. The complaints affect the right leg. Onset: The symptoms/episode began/occurred acutely, today. Associated signs and symptoms: Pertinent positives: fever. Severity of symptoms: At their worst the symptoms were moderate. The patient has not experienced similar symptoms in the past. The patient has not recently seen a physician. Patient minimi speaking normally. Per son patient had an accidental fall. Subsequently the daughter also noted that she felt hot this morning. EMS stated that her temperature was 101. Was given a gram of Tylenol by family at home. Currently complains of right hip pain from the fall but denies any other current pain. Son also stated that she fell 2 days ago and at that time was complaining of neck pain.. Historical: - Allergies: 10:12 No Known Allergies; jg9 - Home Meds: 10:12 alprazolam 2 mg Oral tab 1 tab nightly [Active]; Amitiza 24 mcg Oral cap 1 cap jg9 [Active]; benztropine 0.5 mg Oral tab 1 tab 2 times per day [Active]; citalopram 20 mg tab 1 tab once daily [Active]; Linzess 145 mcg Oral cap 1 cap once daily [Active]; lisinopril 10 mg Oral tab 1 tab once daily [Active]; meclizine 25 mg Oral cap as needed [Active]; [place] 7.5-325 mg Oral tab 1 tab TID [Active]; Protonix 40 mg Oral TbEC 1 tab once daily [Active]; risperadone 0.5 daily [Active]; ursodiol 500 mg Oral tab daily [Active]; Vitamin D Oral 1000 unit daily [Active]; - PMHx: 10:12 Anxiety; Chronic pain; Diabetes - NIDDM; Hepatitis; Hypertension; Osteoporosis; jg9 Pancreatitis; - Social history:: Smoking status: unknown. - Immunization history: Last tetanus immunization: unknown. ROS: 10:28 Eyes: Negative for injury, pain, redness, and discharge, ENT: Negative for injury, jr8 pain, and discharge, Cardiovascular: Negative for chest pain, palpitations, and edema, Respiratory: Negative for shortness of breath, cough, wheezing, and pleuritic chest pain, Abdomen/GI: Negative for abdominal pain, nausea, vomiting, diarrhea, and constipation, Back: Negative for injury and pain, Skin: Negative for injury, rash, and discoloration, Neuro: Negative for headache, weakness, numbness, tingling, and seizure. 10:28 Constitutional: Positive for fever. 10:28 Neck: Positive for pain with movement, pain at rest, Negative for tenderness, bony tenderness. 10:28 MS/extremity: Positive for decreased range of motion, pain, tenderness, of the right leg. Exam: 10:38 Constitutional: This is a well developed, well nourished patient who is awake, alert, jr8 and in no acute distress. Head/Face: Normocephalic, atraumatic. Eyes: Pupils equal round and reactive to light, extra-ocular motions intact. Lids and lashes normal. Conjunctiva and sclera are non-icteric and not injected. Cornea within normal limits. Periorbital areas with no swelling, redness, or edema. ENT: Nares patent. No nasal discharge, no septal abnormalities noted. Tympanic membranes are normal and external auditory canals are clear. Oropharynx with no redness, swelling, or masses, exudates, or evidence of obstruction, uvula midline. Mucous membranes moist. Neck: Trachea midline, no thyromegaly or masses palpated, and no cervical lymphadenopathy. Supple, full range of motion without nuchal rigidity, or vertebral point tenderness. No Meningismus. Chest/axilla: Normal chest wall appearance and motion. Nontender with no deformity. No lesions are appreciated. Cardiovascular: Regular rate and rhythm with a normal S1 and S2. No gallops, murmurs, or rubs. Normal PMI, no JVD. No pulse deficits. Respiratory: Lungs have equal breath sounds bilaterally, clear to auscultation and percussion. No rales, rhonchi or wheezes noted. No increased work of breathing, no retractions or nasal flaring. Abdomen/GI: Soft, non-tender, with normal bowel sounds. No distension or tympany. No guarding or rebound. No evidence of tenderness throughout. Back: No spinal tenderness. No costovertebral tenderness. Full range of motion. Skin: Warm, dry with normal turgor. Normal color with no rashes, no lesions, and no evidence of cellulitis. Neuro: Awake and alert, GCS 15, oriented to person, place, time, and situation. Cranial nerves II-XII grossly intact. Motor strength 5/5 in all extremities. Sensory grossly intact. 10:38 Musculoskeletal/extremity: Extremities: grossly normal except: noted in the right leg: Patient has approximately 1 inch leg length discrepancy on the right side. Pain with external and internal rotation noted. Pulses 2+ DP and PT. Normal sensation present. No obvious text sternal deformity seen. Point tenderness to the right greater trochanteric and inguinal region of hip., Sensation intact. Weight bearing: is unable to bear weight. Vital Signs: 09:37 BP 135 / 71; Pulse 91; Resp 20; Temp 99.2(O); Pulse Ox 96% on R/A; Weight 58.97 kg (R); mb7 Height 5 ft. 6 in. (167.64 cm) (R); 10:45 BP 133 / 78; Pulse 92; Resp 20 S; Pulse Ox 97% on R/A; Pain 8/10; jg9 11:45 BP 140 / 80; Pulse 80; Resp 18 S; Pulse Ox 92% on 2 lpm NC; jg9 12:45 BP 130 / 78; Pulse 88; Resp 17; Pulse Ox 94% on 2 lpm NC; jg9 13:15 BP 122 / 77; Pulse 87; Resp 17 S; Pulse Ox 95% on 2 lpm NC; jg9 15:30 BP 128 / 78; Pulse 88; Resp 18 S; Pulse Ox 95% on 2 lpm NC; Pain 5/10; jg9 09:37 Body Mass Index 20.98 (58.97 kg, 167.64 cm) mb7 Angelita Coma Score: 10:00 Eye Response: spontaneous(4). Verbal Response: confused(4). Motor Response: obeys jg9 commands(6). Total: 14. Trauma Score (Adult): 10:00 Eye Response: spontaneous(1); Verbal Response: confused(1); Motor Response: obeys jg9 commands(2); Systolic BP: > 89 mm Hg(4); Respiratory Rate: 10 to 29 per min(4); [place] Score: 14; Trauma Score: 12 MDM: 09:18 Patient medically screened. 11:58 Data reviewed: vital signs, nurses notes, lab test result(s), radiologic studies, CT jr scan, plain films. Data interpreted: Pulse oximetry: on room air is 97 %. Interpretation: normal. 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 ED course: Dr. Sol orthopedics accepted for consult at [facility] . 04/06 09:30 Order name: CBC with Diff; Complete Time: 10:28 04/06 09:30 Order name: CMP; Complete Time: 10:28 04/06 09:30 Order name: Urine Microscopic Only; Complete Time: 11:45 04/06 09:30 Order name: Hip Right 2 View XRAY; Complete Time: 10:28 04/06 09:31 Order name: SARS-COV-2 RT PCR (Document "Date of Onset" if Symptomatic); Complete Time: 10:58 04/06 11:04 Order name: Urine Dipstick-Ancillary; Complete Time: 11:05 EDMS 04/06 09:30 Order name: IV Saline Lock; Complete Time: 10:02 04/06 09:30 Order name: Labs collected and sent; Complete Time: 10:02 04/06 09:30 Order name: Urine Dipstick-Ancillary (obtain specimen); Complete Time: 11:09 04/06 09:43 Order name: CT Head C Spine; Complete Time: 10:28 04/06 09:44 Order name: Chest Single View XRAY; Complete Time: 11:05 8 04/06 09:46 Order name: Javon; Complete Time: 11:08 jr8 Administered Medications: 10:48 Drug: fentaNYL (PF) 50 mcg Route: IVP; Site: right antecubital; jg9 11:22 Follow up: Response: No adverse reaction; Pain is decreased jg9 10:48 Drug: Zofran (Ondansetron) 4 mg Route: IVP; Site: right antecubital; jg9 11:22 Follow up: Response: No adverse reaction j9 11:21 Drug: Rocephin (cefTRIAXone) 1 grams Route: IV; Rate: calculated rate; Site: right jg9 antecubital; 12:15 Follow up: IV Status: Completed infusion; IV Intake: 50ml jh6 Disposition Summary: 04/06/22 11:58 Transfer Ordered Transfer Location: [facility] jr8 Reason: Higher level of care jr8 Condition: Stable jr8 Problem: new jr8 Symptoms: have improved jr8 Accepting Physician: Dr. Zaida Martinez(04/06/22 15:48) jg9 Diagnosis - Displaced fracture of base of neck of right femur jr8 - Fever, unspecified jr8 Forms: - Medication Reconciliation Form jr8 - SBAR form jr8 Signatures: Dispatcher [employer] EDMS Ruel Cantu PA PA jr8 Diana Shafer, YOSVANY RN jg9 Crystal Thompson RN RN 1 Diana Canchola RN jh6 Corrections: (The following items were deleted from the chart) 12:23 11:58 Dr. ruth Martinez jr8 jr8 15:48 12:23 Dr. Zaida Martinez jr8 jg9
[2022-04-06 16:18] VITALS: TEMP 99.2
[2022-04-06 16:27] VITALS: O2SAT 95
[2022-04-06 16:29] VITALS: BP 128/78
[2022-04-06] MEDS ORDERED: FENTANYL CITR 100 MCG/2 ML ONE (18:22)
== END 2022-04-06 15:48 | disposition short-term general hospital (02) ==
LOC: ER 08:55
DX: S72.041A Displaced fracture of base of neck of right femur, initial encounter for closed fracture (principal); R50.9 Fever, unspecified; I10 Essential (primary) hypertension; E11.9 Type 2 diabetes mellitus without complications; F41.9 Anxiety disorder, unspecified; Z20.822 Contact with and (suspected) exposure to COVID-19
CPT/HCPCS: 96365; 85025; 36415; 80053; 70450; 72125; 71045; 73502; 51702; 96375; 99285; U0003; J3010; 81003; 81015

== ENCOUNTER 2022-10-30 09:23 | Emergency (ER) | payer OTHER ==
--- OUTSIDE RECORDS SUMMARY | 2022-10-30 09:36 | XMS REPORT | Continuity of Care Document ---
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 5000U QD Take 5,[address] [facility] slim 8-02 Units by [facility] (VITAMIN 20:18: mouth Medical D3) 25 mcg 17 daily. Center (1,000 unit) tablet lisinopriL Yes 10mg QD Take [address] (PRINIVIL,Z 8-02 by mouth Luke s ESTRIL) 10 20:18: daily. Medic al MG tablet 17 Center linaCLOtide Yes 145ug Take [address] (Linzess) 8-02 mcg by [facility] 145 mcg Cap 20:18: mouth Medic al 17 every Center morning before breakfast. lubiproston Yes 24ug QD Take [address] [facility] (AMITIZA) 8-02 mcg by [facility] 24 MCG 20:18: mouth Medical capsule 17 daily. [place] alendronate Yes 70mg Take [address] [facility] (FOSAMAX) 8-02 by mouth [facility] 70 MG 20:18: every 7 Medical tablet 17 days Take Center in the morning with a full glass of water, on an empty stomach, and do not take anything else by mouth or lie down for the next 30 min. . HYDROcodone Yes 1{tbl} Q.40007415 Take [address] [facility] -acetaminop 8- [id number] tablet by [facility] hen (NORCO 20:18: 3D mouth 3 Medi josephine 5-325) 17 (three) Center 5-325 mg times per tablet daily. ursodioL Yes 500mg QD Take [address] [facility] (ACTIGALL) 8-02 mg by [facility] 500 MG 20:18: mouth Medical tablet 17 daily. Center amLODIPine 2022- No 5mg QD Take [address] [facility] (NORVASC) 5 8-02 08-02 tablet (5 Jasmyn kes MG tablet 00:00: 23:59 mg total) Me dical 00 :00 by mouth Center daily. amLODIPine 2022- No 5mg QD Take [address] [facility] (NORVASC) 5 8-02 08-02 tablet (5 Jasmyn kes MG tablet 00:00: 23:59 mg total) Me dical 00 :00 by mouth Center daily. amLODIPine 2022- No 5mg QD Take [address] [facility] (NORVASC) 5 8- 08-02 tablet (5 Jasmyn kes MG tablet 00:00: 23:59 mg total) Me dical 00 :00 by mouth Center daily. memantine Yes TAKE 1 [facility] (NAMENDA) 5 7-22 TABLET BY Col lege MG tablet 00:00: MOUTH of 00 TWICE A Medicin DAY e memantine Yes TAKE 1 [facility] (NAMENDA) 5 7-22 TABLET BY Col [facility]ge MG tablet 00:00: MOUTH of 00 TWICE A Medicin DAY e Buprenorphi Yes TAKE 1 [facility] 7-21 FILM TWICE [place] HCl-Naloxon 00:00: A DAY FOR o f e HCl 8-2 00 28 DAY(S) Medic in MG FILM e Buprenorphi 0 2021- No TAKE 1 [place] nichol ne 7-21 11-14 FILM TWICE [place] HCl-Naloxon 00:00: 00:00 A DAY FOR of e HCl 8-2 00 :00 28 DAY(S) Medic in MG FILM e Naloxegol 2020-09 Yes [id number] 25mg Take 25 mg [facility] Oxalate 1-29 by mouth [place] (MOVANTIK) 00:00: daily. of 25 MG TABS 00 Medicin e Naloxegol 2020-09 Yes [id number] 25mg Take 25 mg [facility] Oxalate 1-29 by mouth [place] (MOVANTIK) 00:00: daily. of 25 MG TABS 00 Medicin e iopamidol 2020-09- No [id number] 100mL 100 mL, Univers (ISOVUE 09-23 Intravenou ity o f 370-500 mL) 17:55: 17:55 s, ONCE, 1 [place] injection 00 :00 dose, On Medica l 100 mL Tue Branch 07/24/21 at 1215, Routine ondansetron 2020-09- No 4mg 4 mg, Slow Univers (ZOFRAN 09-23 IV Push, ity of (PF)) 17:45: 16:38 ONCE, 1 [place] injection 4 00 :00 dose, On Medi josephine mg Tue Branch 07/24/21 at 1145, Routine morpHINE 2020-09 Yes 4mg 4 mg, Slow Uni vers injection 4 09-23 IV Push, ity of mg 16:30: Q4HPRN, [place] [id number] Starting Medical on Tue Branch 07/24/21 at 1030, Until Discontinu ed, Routine, Pain (scale 7-10) benztropine 2020-09 Yes [facility] (COGENTIN) 0-05 College 0.5 MG 00:00: of tablet 00 Medicin e benztropine 2020-09 No [facility] (COGENTIN) 0-05 11-14 College 0.5 MG 00:00: 00:00 of tablet 00 :00 Medicin e risperidone 2020-09 Yes two times [facility] (RISPERDAL) 0-03 daily. Colleg e 0.5 MG 00:00: of tablet 00 Medicin e Lubipro[place] 2020-09 Yes DAILY [facility] 24 MCG 0-03 [facility] CAPS 00:00: of 00 Medicin e Ursodiol 2020-09 Yes DAILY [facility] 500 MG TABS 0-03 College 00:00: of 00 Medicin e pantoprazol 2020-09 Yes DAILY [facility] 0-03 [facility] (PROTONIX) 00:00: of 40 MG 00 Medicin tablet e Cholecalcif 2020-09 Yes 1000U 1,000 [facility] 25 MCG 0-03 Units. Colleg e (1000 UT) 00:00: of CAPS 00 Medicin e risperidone 2020-09 Yes two times [facility] [place] (RISPERDAL) 0-03 daily. Colleg e 0.5 MG 00:00: of tablet 00 Medicin e [place] 2020-09- No DAILY [facility] 24 MCG 0-07-26 College CAPS 00:00: 00:00 of 00 :00 Medicin e Ursodiol 2020-09- No DAILY [facility] 500 MG TABS 007-26 College 00:00: 00:00 of 00 :00 Medicin e pantoprazol 2020-09- No DAILY [facility] 0-07-26 [facility] (PROTONIX) 00:00: 00:00 of 40 MG 00 :00 Medicin tablet e Cholecalcif 2020-09- No 1000U 1,000 [place] nich[facility] slim 25 MCG 007-26 Units. Colle ge (1000 UT) 00:00: 00:00 of CAPS 00 :00 Medicin e ALPRAZolam Yes 2mg Take 2 mg CH [...] MCG 10:59: mouth Medical capsule 53 daily. [place] alendronate Yes 70mg Take [address] [facility] (FOSAMAX) 8-26 by mouth [facility] 70 MG 10:59: every 7 Medical tablet 53 days Take Center in the morning with a full glass of water, on an empty stomach, and do not take anything else by mouth or lie down for the next 30 min. . HYDROcodone Yes 1{tbl} Q.[id number] Take [address] [facility] -acetaminop 8-26 [id number] tablet by [facility] hen (NORCO 10:59: 3D mouth 3 Medi josephine 5-325) 53 (three) Center 5-325 mg times per tablet daily. ursodioL Yes 500mg QD Take [address] [facility] [address] (ACTIGALL) 8-26 mg by [facility] 500 MG 10:59: mouth Medical tablet 53 daily. [place] ALPRAZolam Yes 2mg Take 2 mg [facility] [...] for the next 30 min. . HYDROcodone 2021-0 Yes 1{tbl} Q.[id number] Take [address] [facility] -acetaminop 8-26 [id number] tablet by [facility] hen (NORCO 10:59: 3D [...] next 30 min. . HYDROcodone Yes 1{tbl} Q.[id number] Take [address] [facility] -acetaminop 8-26 [id number] tablet by [facility] hen (NORCO 10:59: 3D mouth 3 Medi josephine 5-325) 53 (three) Center 5-325 mg times per tablet daily. ursodioL Yes 500mg QD Take [address] [address] (ACTIGALL) 8-26 mg by [facility] 500 MG 10:59: mouth Medical tablet 53 daily. [place] ALPRAZolam Yes 2mg Take 2 mg CH [...] MG 09:40: mouth Medical tablet 47 nightly. [place] traMADoL Yes 50mg Take 50 mg [facility] [...] MCG 09:40: mouth Medical capsule 47 daily. [place] alendronate Yes 70mg Take [address] [facility] (FOSAMAX) 8-26 by mouth [facility] 70 MG 09:40: every 7 Medical tablet 47 days Take Center in the morning with a full glass of water, on an empty stomach, and do not take anything else by mouth or lie down for the next 30 min. . HYDROcodone Yes 1{tbl} Q.[id number] Take [address] [facility] -acetaminop 8-26 [id number] tablet by [facility] hen (NORCO 09:40: 3D mouth 3 Medi josephine 5-325) 47 (three) Center 5-325 mg times per tablet daily. ursodioL Yes 500mg QD Take [address] [facility] [address] (ACTIGALL) 8-26 mg by [facility] 500 MG 09:40: mouth Medical tablet 47 daily. [place] meclizine Yes [facility] (ANTIVERT) 6-21 [facility] 25 mg 00:00: Medical tablet 00 [facility] Yes [facility] (ANTIVERT) 6-21 [facility] 25 mg 00:00: Medical tablet 00 [facility] (ANTIVERT) 6-21 [facility] 25 mg 00:00: Medical tablet 00 [facility] (ANTIVERT) 6-21 [facility] 25 mg 00:00: Medical tablet 00 [facility] (ANTIVERT) 6-21 [facility] 25 mg 00:00: Medical tablet 00 [facility] (ANTIVERT) 6-21 [facility] 25 mg 00:00: Medical tablet 00 [facility] Yes [facility] (ANTIVERT) 6-21 [facility] 25 mg 00:00: Medical tablet 00 [place] Nortriptyli Nortriptyli Yes HOLLIE TAKE 1 [facility] [...] TAKE 1.5 [facility] Sulfate 30 Sulfate 30 02-01 TABLET P hysici MG Oral MG Oral 00:00: TWICE ans Tablet Tablet 00 DAILY MethylPREDN MethylPREDN Yes HOLLIE Medrol [facility] ISolone 4 ISolone 4 -23 DOMENICO M.DKenrick dose pb Physici MG Oral MG Oral 00:00: (24 mg ans Tablet Tablet 00 with Therapy Therapy tapering Pack Pack dose to 4 mg over 6 days) MDD:24mg morphine Yes 30mg Take 30 mg Uni vers (AVINZA) 30 7-07 by mouth ity of mg 24 hr 08:12: daily. [facility] 18 Medical Branch ALPRAZolam Yes 2mg Take [...] ity of mg 24 hr 08:12: daily. [facility] 18 Medical Branch ALPRAZolam Yes 2mg Take [...] ity of mg 24 hr 08:12: daily. [place] capsule 18 Medical Branch ALPRAZolam Yes 2mg Take 2 mg [place] (XANAX) 2 7-07 by mouth ity of mg tablet 08:12: at bedtime [place] 18 as needed Medical for Sleep. Branch amitriptyli Yes 10mg Take 10 mg Univers ne (ELAVIL) 7-07 by mouth ity of 10 mg 08:12: at [place] tablet 18 bedtime. Medical Branch morphine 2016-0 Yes 30mg Take 30 mg Uni vers (AVINZA) 30 7-07 by mouth ity of mg 24 hr 08:12: daily. [place] capsule 18 Medical Branch ALPRAZolam 2016-0 Yes 2mg Take 2 mg [place] (XANAX) 2 7-07 by mouth ity of mg tablet 08:12: at bedtime [place] 18 as needed Medical for Sleep. Branch morphine 2016-0 Yes 30mg Take 30 mg Uni vers (AVINZA) 30 7-07 by mouth ity of mg 24 hr 08:12: daily. [facility] 18 Medical Branch amitriptyli 2015-0 Yes 10mg Take 10 mg Univers ne (ELAVIL) 7-07 by mouth ity of 10 mg 08:12: at [place] tablet 18 bedtime. Medical Branch ALPRAZolam 2015-0 Yes 2mg Take 2 mg [place] (XANAX) 2 7-07 by mouth ity of mg tablet 08:12: at bedtime [place] 18 as needed Medical for Sleep. Branch amitriptyli 2015-0 Yes 10mg Take 10 mg Univers ne (ELAVIL) 7-07 by mouth ity of 10 mg 08:12: at [place] tablet 18 bedtime. Medical Branch morphine 2016-0 Yes 30mg Take 30 mg Uni vers (AVINZA) 30 7-07 by mouth ity of mg 24 hr 08:12: daily. [facility] 18 Medical Branch ALPRAZolam 2015-0 Yes 2mg Take 2 mg [place] (XANAX) 2 7-07 by mouth ity of mg tablet 08:12: at bedtime [place] 18 as needed Medical for Sleep. Branch amitriptyli 2016-0 Yes 10mg Take 10 mg Univers ne (ELAVIL) 7-07 by mouth ity of 10 mg 08:12: at [place] tablet 18 bedtime. Medical Branch morphine 2016-0 Yes 30mg Take 30 mg Uni vers (AVINZA) 30 7-07 by mouth ity of mg 24 hr 08:12: daily. [facility] 18 Medical Branch ALPRAZolam 2016-0 Yes 2mg Take 2 mg [place] (XANAX) 2 7-07 by mouth ity of mg tablet 08:12: at bedtime [place] 18 as needed Medical for Sleep. Branch amitriptyli 0 Yes 10mg Take 10 mg Univers ne (ELAVIL) 7-07 by mouth ity of 10 mg 08:12: at [place] tablet 18 bedtime. Medical Branch morphine 2016-0 Yes 30mg Take 30 mg Uni [facility] (AVINZA) 30 7-07 by mouth ity of mg 24 hr 08:12: daily. [place] capsule 18 Medical Branch ALPRAZolam 2015-0 Yes 2mg Take 2 mg [place] (XANAX) 2 7-07 by mouth ity of mg tablet 08:12: at bedtime [place] 18 as needed Medical for Sleep. Branch amitriptyli 0 Yes 10mg Take 10 mg Univers ne (ELAVIL) 7-07 by mouth ity of 10 mg 08:12: at [place] tablet 18 bedtime. Medical Branch morphine 2015-0 Yes 30mg Take 30 mg Uni vers (AVINZA) 30 7-07 by mouth ity of mg 24 hr 08:12: daily. [place] capsule 18 Medical Branch ALPRAZolam 0 Yes 2mg Take 2 mg [place] (XANAX) 2 7-07 by mouth ity of mg tablet 08:12: at bedtime [place] 18 as needed Medical for Sleep. Branch amitriptyli 0 Yes 10mg Take 10 mg Univers ne (ELAVIL) 7-07 by mouth ity of 10 mg 08:12: at [place] tablet 18 bedtime. Medical Branch morphine 2015-0 Yes 30mg Take 30 mg Uni vers (AVINZA) 30 7-07 by mouth ity of mg 24 hr 08:12: daily. [place] capsule 18 Medical Branch ALPRAZolam 0 Yes 2mg Take 2 mg [place] (XANAX) 2 7-07 by mouth ity of mg tablet 08:12: at bedtime [place] 18 as needed Medical for Sleep. Branch amitriptyli 0 Yes 10mg Take 10 mg [facility] ne (ELAVIL) 7-07 by mouth ity of 10 mg 08:12: at [place] tablet 18 bedtime. Medical Branch morphine 2015-0 Yes 30mg Take 30 mg Uni vers [...] Take 30 mg Uni vers (AVINZA) 30 7- by mouth ity of mg 24 hr 08:12: daily. [place] capsule 18 Medical Branch ALPRAZolam Yes 2mg Take 2 mg [place] (XANAX) 2 7-07 by mouth ity of mg tablet 08:12: at bedtime [place] 18 as needed Medical for Sleep. Branch amitriptyli Yes 10mg Take 10 mg Univers ne (ELAVIL) 03-18 by mouth ity of 10 mg 08:12: [...] 00:00: BID. [place] tablet 00 Medical Branch morpHINE Yes TK 1 AND Unive rs I.R. (MSIR) 6-10 1/2 TS PO ity of 30 mg 00:00: BID. [place] tablet 00 Medical Branch morpHINE 2015-0 Yes TK 1 AND Unive rs I.R. (MSIR) 6-10 1/2 TS PO ity of 30 mg 00:00: BID. [place] tablet 00 Medical Branch morpHINE Yes TK 1 AND Unive rs I.R. (MSIR) 6-10 1/2 TS PO ity of 30 mg 00:00: BID. [place] tablet 00 Medical Branch morpHINE 2015-0 Yes TK 1 AND Unive rs I.R. (MSIR) 6-10 1/2 TS PO ity of 30 mg 00:00: BID. [place] tablet 00 Medical Branch morpHINE 2015-0 Yes TK 1 AND Unive rs I.R. (MSIR) 6-10 1/2 TS PO ity of 30 mg 00:00: BID. [place] tablet 00 Medical Branch morpHINE 2015- Yes TK 1 AND Unive rs I.R. (MSIR) 6-10 1/2 TS PO ity of 30 mg 00:00: BID. [place] tablet 00 Medical Branch morpHINE 2015-0 Yes TK 1 AND Unive rs I.R. (MSIR) 6-10 1/2 TS PO ity of 30 mg 00:00: BID. [place] tablet 00 Medical Branch morpHINE 2015- Yes TK 1 AND Unive rs I.R. (MSIR) 6-10 1/2 TS PO ity of 30 mg 00:00: BID. [place] tablet 00 Medical Branch morpHINE 2015- Yes TK 1 AND Unive rs I.R. (MSIR) 6-10 1/2 TS PO ity of 30 mg 00:00: BID. [place] tablet 00 Medical Branch morpHINE 2015- Yes TK 1 AND Unive rs I.R. (MSIR) 6-10 1/2 TS PO ity of 30 mg 00:00: BID. [place] tablet 00 Medical Branch morpHINE 2015- Yes TK 1 AND Unive rs I.R. (MSIR) 6-10 1/2 TS PO ity of 30 mg 00:00: BID. [place] tablet 00 Medical Branch Lisinopril, Yes Univer s Bulk, 100 % 6-03 ity of Powd 00:00: Medical Branch Lisinopril, Yes Univer s Bulk, 100 % 6-03 ity of Powd 00:00: Medical Branch Lisinopril, 0 Yes Univer s Bulk, 100 % 6-03 ity of Powd 00:00: Medical Branch Lisinopril, Yes Univer s Bulk, 100 % 6-03 ity of Powd 00:00: Medical Branch Lisinopril, 0 Yes Univer s Bulk, 100 % 6-03 ity of Powd 00:00: Medical Branch Lisinopril, 0 Yes Univer s Bulk, 100 % 6-03 ity of Powd 00:00: Medical Branch Lisinopril, Yes Univer s Bulk, 100 % 6-03 ity of Powd 00:00: Medical Branch Lisinopril, 2016-0 Yes Univer s Bulk, 100 % 6-03 ity of Powd 00:00: [place] 00 Medical Branch Lisinopril, 0 Yes Univer s Bulk, 100 % 6-03 ity of Powd 00:00: [place] 00 Medical Branch Lisinopril, 0 Yes Univer s Bulk, 100 % 6-03 ity of Powd 00:00: [place] 00 Medical Branch Lisinopril, 0 Yes Univer s Bulk, 100 % 6-03 ity of Powd 00:00: [place] Medical [facility] Lisinopril, 0 Yes Univer s Bulk, 100 % 6-03 [...] 00 EVERY 8 Medical HOURS Branch gabapentin 2015-0 Yes TAKE 1 Unive rs (NEURONTIN) 5-20 TABLET BY ity of 600 mg 00:00: MOUTH [place] tablet 00 EVERY 8 Medical HOURS [place] gabapentin 2015-0 Yes TAKE 1 Unive rs (NEURONTIN) 5-20 TABLET BY ity of 600 mg 00:00: MOUTH [place] tablet 00 EVERY 8 Medical HOURS [place] ciprofloxac 2014-09 Yes 500mg Take 1 Tab Univers in HCl 1-30 by mouth 2 ity of (CIPRO) 500 00:00: (two) [place] mg tablet 00 times Medical daily. [place] ciprofloxac 2014-09 Yes 500mg Take 1 Tab Univers in HCl 1-30 by mouth 2 ity of (CIPRO) 500 00:00: (two) [place] mg tablet 00 times Medical daily. [place] ciprofloxac 2014-09 Yes 500mg Take 1 Tab Univers in HCl 1-30 by mouth 2 ity of (CIPRO) 500 00:00: (two) [place] mg tablet 00 times Medical daily. [place] ciprofloxac 2014-09 Yes 500mg Take 1 Tab Univers in HCl 1-30 by mouth 2 ity of (CIPRO) 500 00:00: (two) [place] mg tablet 00 times Medical daily. [place] ciprofloxac 2014-09 Yes 500mg Take 1 Tab Univers in HCl 1-30 by mouth 2 ity of (CIPRO) 500 00:00: (two) [place] mg tablet 00 times Medical daily. [place] ciprofloxac 2014-09 Yes 500mg Take 1 Tab [...] tablet 00 times Medical daily. Branch ciprofloxac 2014- Yes 500mg Take 1 Tab Univers in [...] Immunizations Ordered Filled Immunization Date Status Comments [facility] e Immunization Name Name SARS-COV-2 COVID-19 2020-11-11 Completed Unive rsity of PFIZER VACCINE 00:00:00 [facility] SARS-COV-2 COVID-19 2020-11-11 Completed Unive rsity of PFIZER VACCINE 00:00:00 [facility] SARS-COV-2 COVID-19 2020-11-11 Completed Unive rsity of PFIZER VACCINE 00:00:00 [facility] SARS-COV-2 COVID-19 2020-11-11 Completed Unive rsity of PFIZER VACCINE 00:00:00 [facility] SARS-COV-2 COVID-19 2020-11-11 Completed Unive rsity of PFIZER VACCINE 00:00:00 [facility] SARS-COV-2 COVID-19 2020-11-11 Completed Unive rsity of PFIZER VACCINE 00:00:00 [facility] SARS-COV-2 COVID-19 2020-11-11 Completed Unive rsity of PFIZER VACCINE 00:00:00 [facility] SARS-COV-2 COVID-19 2020-11-11 Completed Unive rsity of PFIZER VACCINE 00:00:00 [facility] SARS-COV-2 COVID-19 2020-11-11 Completed Unive rsity of PFIZER VACCINE 00:00:00 [facility] SARS-COV-2 COVID-19 2020-11-11 Completed Unive rsity of PFIZER VACCINE 00:00:00 [facility] SARS-COV-2 COVID-19 2020-11-11 Completed Unive rsity of PFIZER VACCINE 00:00:00 [facility] SARS-COV-2 COVID-19 2020-11-11 Completed Unive rsity of PFIZER VACCINE 00:00:00 [facility] SARS-COV-2 COVID-19 2020-10-21 Completed Unive rsity of PFIZER VACCINE 00:00:00 [facility] SARS-COV-2 COVID-19 2020-10-21 Completed Unive rsity of PFIZER VACCINE 00:00:00 [facility] SARS-COV-2 COVID-19 2020-10-21 Completed Unive rsity of PFIZER VACCINE 00:00:00 [facility] SARS-COV-2 COVID-19 2020-10-21 Completed Unive rsity of PFIZER VACCINE 00:00:00 [facility] SARS-COV-2 COVID-19 2020-10-21 Completed Unive rsity of PFIZER VACCINE 00:00:00 [facility] SARS-COV-2 COVID-19 2020-10-21 Completed Unive rsity of PFIZER VACCINE 00:00:00 [facility] SARS-COV-2 COVID-19 2020-10-21 Completed Unive rsity of PFIZER VACCINE 00:00:00 [facility] SARS-COV-2 COVID-19 2020-10-21 Completed Unive rsity of PFIZER VACCINE 00:00:00 [facility] SARS-COV-2 COVID-19 2020-10-21 Completed Unive rsity of PFIZER VACCINE 00:00:00 [facility] SARS-COV-2 COVID-19 2020-10-21 Completed Unive rsity of PFIZER VACCINE 00:00:00 [facility] SARS-COV-2 COVID-19 2020-10-21 Completed Unive rsity of PFIZER VACCINE 00:00:00 [facility] SARS-COV-2 COVID-19 2020-10-21 Completed Unive rsity of PFIZER VACCINE 00:00:00 [facility] Vital Signs Vital Name Observation Time Observation Value Comments Source WEIGHT 2021-03-10 62.596 kg 11:08:00 Body height 2022-10-21 149.9 cm [place] [address]:35:00 [facility] Body weight 2022-10-21 62.596 kg University of 15:35:00 [facility] BMI 2022-10-21 27.87 kg/m2 University of 15:35:00 [facility] Body height 2022-10-04 149.9 cm University of 20:30:00 [facility] Body weight 2022-10-04 62.596 kg University of 20:30:00 [facility] BMI 2022-10-04 27.87 kg/m2 University of 20:30:00 [facility] WEIGHT 2022-04-11 62.8 kg 19:25:00 WEIGHT 2022-04-09 62.795 kg 11:00:00 WEIGHT 2022-04-11 62.8 kg 19:25:00 WEIGHT 2022-04-09 62.795 kg 11:00:00 WEIGHT 2022-04-11 62.8 kg 19:25:00 WEIGHT 2022-04-09 62.795 kg 11:00:00 Systolic blood 2021-07-24 144 mm[Hg] University of pressure 19:28:00 [facility] Diastolic blood 2021-07-24 90 mm[Hg] [facility] pressure 19:28:00 [facility] Heart rate 2021-07-24 87 /min University 19:28:00 [facility] Respiratory rate 2021-07-24 18 /min University of 19:28:00 [facility] Oxygen saturation 2021-07-24 97 /min [facility] in Arterial blood 19:28:00 [facility] by Pulse oximetry [place] Body temperature 2021-07-24 37 Carolann University of 16:20:00 [facility] Body weight 2021-07-24 61.236 kg University 16:20:00 [facility] BMI 2021-07-24 25.51 kg/m2 University 16:20:00 [facility] HEIGHT 2021-05-04 152.4 cm 17:29:00 WEIGHT 2021-05-04 61.689 kg 17:29:00 HEIGHT 2021-05-04 152.4 cm 17:29:00 WEIGHT 2021-05-04 61.689 kg 17:29:00 WEIGHT 2021-03-10 62.596 kg 11:08:00 Systolic blood 2022-04-13 132 mm[Hg] [facility] pressure 15:18:00 [facility] Diastolic blood 2022-04-13 85 mm[Hg] [facility] pressure 15:18:00 [facility] Heart rate 2022-04-13 83 /min [facility] 15:18:00 [facility] Body temperature 2022-04-[address] [facility] 15:18:[facility] Respiratory rate 2022-04-13 18 /min [facility] 15:18:[facility] Oxygen saturation 2022-04-13 98 /min [facility] in Arterial blood 15:18:00 Medical Ce nter by Pulse oximetry Body weight 2022-04-[address] [facility] 19:25:00 [facility] Center BMI 2022-04-11 27.04 kg/m2 [facility] 19:25:00 [facility] Center Systolic blood 2021-05-07 156 mm[Hg] [facility] pressure 08:00:00 Medical Center Diastolic blood 2021-05-07 74 mm[Hg] [facility] pressure 08[facility]00:00 [facility] Heart rate 2021-05-07 76 /min [facility] 08:00:00 [facility] Body temperature 2021-05-[address] [facility] 08:[facility] Respiratory rate 2021-05-07 17 /min [facility] 08:[facility] Oxygen saturation 2021-05-07 97 /min [facility] in Arterial blood 08:00:00 Medical nter by Pulse oximetry Body height 2021-05-[address] [facility] 17:29:00 [facility] Center Body weight 2021-05-[address] [facility] 17:29:00 [facility] Center BMI 2021-05-04 26.56 kg/m2 [facility] 17:29:00 [facility] Center BP Systolic 2018-02-01 131 mm[Hg] Location: [facility]; [facility] 08:36:00 Position: Sitting BP Diastolic 2018-02-01 78 mm[Hg] Location: [facility]; [facility] 08:36:00 Position: Sitting Height 2018-02-01 60 [in_us] [facility] 08:36:00 Weight 2018-02-01 117 [lb_av] [facility] 08:36:00 Body Mass Index 2018-02-01 22.85 kg/m2 [facility] Calculated 08:36:00 Heart Rate 2018-02-01 73 /min Location: [facility] 08:36:00 Brachial Artery; Procedures Procedure Date / Time Performing Clinician Source Performed ASSIGNMENT OF BENEFITS 2022-10-04 20:24:45 Doctor Unassigned, No [facility] AUTHORIZATION FOR RELEASE 2022-09-28 06:01:00 Doctor Unassigned, No [facility] POCT-GLUCOSE METER 2022-04-13 15:22:00 [facility] SARS-COV2/RT-PCR ([facility] & 2022-04-13 13:39:[facility] POCT-GLUCOSE METER 2022-04-13 11:32[facility]00 [facility] 2022-04-13 07:48:00 [facility] BASIC METABOLIC PANEL 2022-04-13 04:31:00 [facility] 2022-[facility]-13 04:31:00 [facility] 2022-04-13 04:31:00 [facility] CBC ([facility] ONLY) 2022-04-13 04:31:00 [facility] POCT-GLUCOSE METER 2022-04-12 20:50:00 [facility] 2022-04-12 15:42:00 [facility] POCT-[facility]SE METER 2022-04-12 12:42:00 [facility] PO[facility]SE METER 2022-04-12 08:06:00 [facility] [place] [facility] BASIC METABOLIC PANEL 2022-04-12 03:22:00 Trip [facility] MAGNESIUM 2022-04-12 03:22:00 [facility] 2022-04-12 03:22:00 [facility] CBC (HEMOGRAM ONLY) 2022-04-12 03:22:00 [facility] POCT-GLUCOSE METER 2022-04-11 20:41:00 [facility] PO[facility]SE METER 2022-04-11 15:29:00 [facility] PO[facility]SE METER 2022-04-11 11:06:00 [facility] PO[facility]SE METER 2022-04-11 07:19:00 [facility] [place] [facility] BASIC METABOLIC PANEL 2022-04-11 05:21:00 [facility] MAGNESIUM 2022-04-11 05:21:00 [facility] 2022-04-11 05:21:00 [facility] CBC (HEMOGRAM ONLY) 2022-04-11 05:21:00 [facility] PO[facility]SE METER 2022-04-10 21:16:00 [facility] POCT-[facility]SE METER 2022-04-10 16:48:00 [facility] POCT-[facility]SE METER 2022-04-10 11:11:00 [facility] POCT-[facility]UCOSE METER 2022-04-10 07:33:00 [facility] BASIC METABOLIC PANEL 2022-04-10 06:00:00 [facility] MAGNESIUM 2022-04-10 06:00:00 [facility] PHOSPHORUS 2022-04-10 06:00:00 [facility] CBC (HEMOGRAM ONLY) 2022-04-10 06:00:00 [facility] PREPARE LEUKO-REDUCED RBC 2022-04-09 23:54:00 [facility] POCT-GLUCOSE METER 2022-04-09 22:57:00 [facility] POCT-GLUCOSE METER 2022-04-09 17:04:00 [facility] CBC (HEMOGRAM ONLY) 2022-04-09 16:27:00 [facility] POCT-GLUCOSE METER 2022-04-09 11:41:00 [facility] POCT-GLUCOSE METER 2022-04-09 07:35:00 [facility] URINE CULTURE 2022-04-09 05:49:00 [facility] CBC W/PLT COUNT & AUTO 2022-04-09 05:41:00 [facility]ABOLIC PANEL 2022-04-09 05:41:00 [facility] MAGNESIUM 2022-04-09 05:41:00 [facility] PHOSPHORUS 2022-04-09 05:41:00 [facility] CBC W/PLT COUNT & AUTO 2022-04-09 05:41:00 Carlos Manuel [facility] POCT-GLUCOSE METER 2022-04-09 00:05:00 [facility] TRANSFUSE LEUKO-REDUCED 2022-04-08 23:02:00 [facility] RED BLOOD CELLS Center CBC (HEMOGRAM ONLY) 2022-04-08 21:58:00 [facility]ABOLIC PANEL 2022-04-08 21:58:00 Carlos Manuel [facility] MAGNESIUM 2022-04-08 21:58:00 Carlos Manuel [facility] PHOSPHORUS 2022-04-08 21:58:00 Carlos Manuel [facility] LACTIC ACID, VENOUS 2022-04-08 21:58:00 Carlos Manuel [facility] VENOUS DOPPLER LEGS 2022-04-08 19:15:00 [facility] CBC W/PLT COUNT & AUTO 2022-04-08 17:42:00 [facility] DI[facility]ENTIAL [facility] CBC W/PLT COUNT & AUTO 2022-04-08 17:42:00 [facility] DIFFERENTIAL [facility] BLOOD CULTURE 2022-04-08 16:09:00 [facility] XR CHEST 1 VIEW PORTABLE 2022-04-08 15:24:00 Britney Lloyd [facility] / BEDSIDE [facility] BASIC METABOLIC PANEL 2022-04-08 15:22:00 [facility] LACTIC ACID, VENOUS 2022-04-08 15:22:00 [facility] POCT-GLUCOSE METER 2022-04-08 15:20:00 [facility] POCT-GLUCOSE METER 2022-04-08 11:31:00 [facility] CT LOWER EXTREMITY 2022-04-08 03:52:00 Florentino Shepherd [facility] WITHOUT IV CONTRAST [facility] XR PELVIS 1 OR 2 VIEWS 2022-04-07 20:23:[address] [facility] POCT-GLUCOSE METER 2022-04-07 17:26:00 [facility] TISSUE EXAM 2022-04-07 15:36:00 Heaven Garza [facility] XR PELVIS 1 OR 2 VIEWS 2022-04-07 15:10:00 Heaven Garza [facility] HEMIARTHROPLASTY, HIP 2022-04-07 12:16:00 Heaven Garza I [facility] POCT-GLUCOSE METER 2022-04-07 09:49:00 Britney Lloyd [facility] Muralinath [facility] TYPE AND SCREEN, 2022-04-07 09:12:00 Armani Vela [facility] AUTOMATED Center CBC W/PLT COUNT & AUTO 2022-04-07 06:19:00 Rosa Isela Ching [facility] DIFFERENTIAL [facility] CBC W/PLT COUNT & AUTO 2022-04-07 06:19:00 Rosa Isela Ching [facility] DIFFERENTIAL [facility] URINE CULTURE 2022-04-07 05:15:00 [facility] W/ REFLEX 2022-04-07 05:15:00 [facility] BASIC METABOLIC PANEL 2022-04-07 05:05:00 [facility] ([facility] & 2022-04-06 21:32:00 [facility]) [facility] CT ABDOMEN PELVIS W 2021-07-24 18:00:[address] [facility] CONTRAST Medical Branch URINALYSIS 2021-07-24 17:39:00 Glenn Paulson [facility] LIPASE 2021-07-24 16:33:00 Singer Glenn [facility] COMP. METABOLIC PANEL 2021-07-24 16:33:00 [id number] Medical Branch CBC WITH DIFF 2021-07-24 16:33:00 Paulson, [facility] NOTICE OF PRIVACY 2021-07-24 16:11:11 Doctor Unassigned, No [facility] PRACTICES Name Medical Branch REPORT OF PROCEDURE - 2021-05-06 16:07:30 Juan Alberto Shelton [facility] ENDOSCOPY URL Center ERCP,DIRECT VISUALIZATION 2021-05-06 15:00:00 Juan Alberto Shelton u [facility] SPY GLASS Center PROCEDURE W/ C-ARM 2021-05-06 15:00:00 Juan Alberto Shelton [facility] ERCP,BALLOON SWEEPING 2021-05-06 15:00:00 Juan Alberto Shelton [facility] I [facility] CBC W/PLT COUNT & AUTO 2021-05-06 05:51:00 [facility] DIFFERENTIAL [facility] BASIC METABOLIC PANEL (7) 2021-05-06 05:51:00 [facility] HEPATIC FUNCTION PANEL 2021-05-06 05:51:00 [facility] AB[facility]H, MANUAL 2021-05-05 05:07:00 Zunilda Rubin [facility] TYPE AND SCREEN, 2021-05-05 04:14:00 [facility] PROTHROMBIN TIME/INR 2021-05-05 04:14:00 [facility] SARS-COV2/RT-PCR ([facility] & 2021-05-05 00:18:00 [facility] REF LABS) [facility] BLOOD GAS, VENOUS 2021-05-05 00:14:00 [facility] KETONE, BLOOD 2021-05-05 00:14:00 [facility] HIGH SENSITIVITY TROPONIN 2021-05-05 00:14:00 Cherie Faustin [facility] ED ECG INTERPRETATION 2021-05-04 23:15:17 [facility] BASIC METABOLIC PANEL (7) 2021-05-04 21:30:00 Cherie Faustin [facility] HEPATIC FUNCTION PANEL 2021-05-04 21:30:00 Roxie [facility] AMYLASE 2021-05-04 21:30:00 Roxie [facility] LIPASE 2021-05-04 21:30:00 Roxie [facility] CBC W/PLT COUNT & AUTO 2021-05-04 19:37:00 Roxie [facility] ECG 12-LEAD 2021-05-04 19:22:33 Unknown, Hl7 Doctor [facility] POCT-GLUCOSE METER 2021-03-11 08:21:00 [facility] COMPREHENSIVE METABOLIC 2021-03-11 06:09:00 [place] [facility] REPORT OF PROCEDURE - 2021-03-10 23:43:51 Kathy [facility] ENDOSCOPY URL [facility] POCT-GLUCOSE METER 2021-03-10 16:43:00 Paolo [facility] POCT-GLUCOSE METER 2021-03-10 12:45:00 Paolo [facility] [place] ERCP 2021-03-10 12:02:00 Desiree Duggan [facility] ERCP,PAPILLOTOMY 2021-03-10 11:31:00 [facility] PROCEDURE W/ C-ARM 2021-03-10 11:31:00 [facility] ERCP,BALLOON SWEEPING 2021-03-10 11:31:00 [facility] POCT-GLUCOSE METER 2021-03-10 09:07:00 Paolo [facility] CBC (HEMOGRAM ONLY) 2021-03-10 04:50:00 [place] [facility] COMPREHENSIVE METABOLIC 2021-03-10 04:50:00 [facility] HEMOGLOBIN A1C 2021-03-10 04:50:00 [facility] POCT-GLUCOSE METER 2021-03-09 23:54:00 Paolo [facility] SARS-COV2/RT-PCR ([facility] & 2021-03-09 20:13:00 Desiree Duggan [place] [facility] REF LABS) Center POCT-GLUCOSE METER 2021-03-09 17:22:00 [facility] MR ABDOMEN WITHOUT IV 2021-03-09 15:38:00 [facility] CONTRAST MRCP Center POCT-GLUCOSE METER 2021-03-09 12:22:00 [facility] URINALYSIS W/ REFLEX 2021-03-09 10:56:00 [facility] URINE CULTURE Center PROTHROMBIN TIME/INR 2021-03-09 05:25:00 [facility] MAGNESIUM 2021-03-09 05:25:00 [facility] BASIC METABOLIC PANEL (7) 2021-03-09 05:25:00 [facility] CBC W/PLT COUNT & AUTO 2021-03-09 05:25:00 [facility] DIFFERENTIAL Center HEMOGLOBIN A1C 2021-03-09 05:25:00 [facility] HEPATIC FUNCTION PANEL 2021-03-09 05:25:00 [facility], [place]) MRI Brain wo contrast 2018-02-08 00:00:[facility] [id number] Brain w/wo contrast 2018-02-01 00:00:00 [id number]bl[facility] Plan of Care Planned Activity Planned Date Details Comments Source Future Scheduled 2022-09-[address] [facility] 00:00:00 (12+) [code = Medical Center DEPRESSION SCREENING (12+)] Future Scheduled 2022-09-12 FALLS RISK SCREENING [facility] 00:00:00 [code = FALLS RISK Medical C enter SCREENING] Future Scheduled 2022-09-[address] [facility] Test 00:00:00 (12+) [code = Medical Center DEPRESSION SCREENING (12+)] Future Scheduled 2022-09-12 FALLS RISK SCREENING [facility] 00:00:00 [code = FALLS RISK Medical C enter SCREENING] Future Scheduled 2022-07-26 Screening for malignant [facility] of Test 17:59:38 neoplasm of colon Medicine (procedure) [code = [id number]] Future Scheduled 2022-07-26 Screening for malignant [facility] Test 17:59:38 neoplasm of breast Medicine (procedure) [code = 624977504] Future Scheduled 2022-07-26 TETANUS SHOT (ADULT) [facility] of Test 17:59:38 [code = TETANUS SHOT Medicin e (ADULT)] Future Scheduled 2022-07-26 Hepatitis C screening [facility] Test 17:59:38 (procedure) [code = Medicine 053250739] Future Scheduled 2022-07-26 ZOSTER VACCINE (1 of 2) [facility] Test 17:59:38 [code = ZOSTER VACCINE Medic ine (1 of 2)] Future Scheduled 2022-07-26 MEDICARE AWV (Initial) B [facility] Test 17:59:38 [code = MEDICARE AWV Medicin e (Initial)] Future Scheduled 2022-07-26 [facility] Test 17:59:38 osteoporosis Medicine (procedure) [code = 075998849] Future Scheduled 2022-07-26 Pneumococcal 65+ (1 - [facility] of Test 17:59:38 PCV) [code = Medicine Pneumococcal 65+ (1 - PCV)] Future Scheduled 2022-07-26 COVID-19 Vaccine (3 - Ba [facility] Test 17:59:38 Booster for Pfizer Medicine series) [code = COVID-19 Vaccine (3 - Booster for Pfizer series)] Future Scheduled 2022-07-26 FLU VACCINE > 6 MONTHS B [facility] Test 17:59:38 [code = FLU VACCINE > 6 Medi cine MONTHS] Future Scheduled 2022-07-26 FALL SCREEN [code = [facility] of Test 17:59:38 FALL SCREEN] Medicine Future Scheduled 2022-05-13 INFLUENZA VACCINE (#1) [facility] [code = INFLUENZA Medical Ce nter VACCINE (#1)] Future Scheduled 2022-05-13 INFLUENZA VACCINE (#1) [facility] 00:00:00 [code = INFLUENZA Medical Ce nter VACCINE (#1)] Future Scheduled 2022-05-13 INFLUENZA VACCINE (#1) [facility] 00:00:00 [code = INFLUENZA Medical Ce nter VACCINE (#1)] Future Scheduled 2022-05-13 INFLUENZA VACCINE (#1) [facility] 00:00:00 [code = INFLUENZA Medical Ce nter VACCINE (#1)] Future Scheduled 2022-05-13 INFLUENZA VACCINE (#1) [facility] 00:00:00 [code = INFLUENZA Medical Ce nter VACCINE (#1)] Future Scheduled 2022-05-13 INFLUENZA VACCINE (#1) [facility] 00:00:00 [code = INFLUENZA Medical Ce nter VACCINE (#1)] Future Scheduled 2022-04-26 Screening for malignant [facility] Test 15:13:30 neoplasm of colon Medicine (procedure) [code = 077405245] Future Scheduled 2022-04-26 Screening for malignant [facility] Test 15:13:30 neoplasm of breast Medicine (procedure) [code = 686481201] Future Scheduled 2022-04-26 TETANUS SHOT (ADULT) [facility] Test 15:13:30 [code = TETANUS SHOT Medicin e (ADULT)] Future Scheduled 2022-04-26 Hepatitis C screening [facility] of Test 15:13:30 (procedure) [code = Medicine 827079523] Future Scheduled 2022-04-26 ZOSTER VACCINE (1 of 2) [facility] Test 15:13:30 [code = ZOSTER VACCINE Medic ine (1 of 2)] Future Scheduled 2022-04-26 MEDICARE AWV (Initial) [facility] Test 15:13:30 [code = MEDICARE AWV Medicin e (Initial)] Future Scheduled 2022-04-26 [facility] Test 15:13:30 osteoporosis Medicine (procedure) [code = 679958122] Future Scheduled 2022-04-26 Pneumococcal 65+ (1 - [facility] Test 15:13:30 PCV) [code = Medicine Pneumococcal 65+ (1 - PCV)] Future Scheduled 2022-04-26 COVID-19 Vaccine (3 - Ba [facility] Test 15:13:30 Booster for Pfizer Medicine series) [code = COVID-19 Vaccine (3 - Booster for Pfizer series)] Future Scheduled 2022-04-26 FLU VACCINE > 6 MONTHS [employer] of Test 15:13:30 [code = FLU VACCINE > 6 Medi cine MONTHS] Future Scheduled 2022-04-26 FALL SCREEN [code = [facility] of Test 15:13:30 FALL SCREEN] Medicine Future Scheduled 2021-09-[address] [facility] Test 00:00:00 (12+) [code = Medical Center DEPRESSION SCREENING (12+)] Future Scheduled 2021-09-12 FALLS RISK SCREENING [facility] 00:00:00 [code = FALLS RISK Medical C enter SCREENING] Future Scheduled 2021-09-[address] [facility] Test 00:00:00 (12+) [code = Medical Center DEPRESSION SCREENING (12+)] Future Scheduled 2021-09-[address] [facility] Test 00:00:00 (12+) [code = Medical Center DEPRESSION SCREENING (12+)] Future Scheduled 2021-09-12 FALLS RISK SCREENING [facility] 00:00:00 [code = FALLS RISK Medical C enter SCREENING] Future Scheduled 2021-09-[address] [facility] 00:00:00 (12+) [code = Medical Center DEPRESSION SCREENING (12+)] Future Scheduled 2021-09-12 FALLS RISK SCREENING [facility] 00:00:00 [code = FALLS RISK Medical C enter SCREENING] Future Scheduled 2021-09-12 FALLS RISK SCREENING [facility] 00:00:00 [code = FALLS RISK Medical C enter SCREENING] Future Scheduled 2021-09-[address] [facility] Test 00:00:00 measurement (procedure) [facility] [code = 40503457] Future Scheduled 2021-09-[address] [facility] 00:00:00 measurement (procedure) [facility] [code = 93113995] Future Scheduled 2021-09-[address] [facility] 00:00:00 measurement (procedure) [facility] [code = 60794294] Future Scheduled 2021-09-[address] [facility] 00:00:00 measurement (procedure) [facility] [code = 32687791] Future Scheduled 2021-09-[address] [facility] Test 00:00:00 measurement (procedure) [facility] [code = 29332844] Future Scheduled 2021-09-[address] [facility] 00:00:00 measurement (procedure) [facility] [code = 08479765] Future Scheduled 2021-09-[address] [facility] Test 00:00:00 measurement (procedure) [facility] [code = 90941302] Future Scheduled 2021-05-13 INFLUENZA VACCINE (#1) C [...] Medical Ce nter VACCINE (#1)] Future Scheduled 2021-04-13 COVID-19 VACCINE (3 - [facility] Booster for Pfizer Medical C enter series) [code = COVID-19 VACCINE (3 - Booster for Pfizer series)] Future Scheduled 2021-04-13 COVID-19 VACCINE (3 - [facility] 00:00:00 Booster for Pfizer Medical C enter series) [code = COVID-19 VACCINE (3 - Booster for Pfizer series)] Future Scheduled 2021-04-13 COVID-19 VACCINE (3 - [facility] 00:00:00 Booster for Pfizer Medical C enter series) [code = COVID-19 VACCINE (3 - Booster for Pfizer series)] Future Scheduled 2013 PNEUMOCOCCAL 65+ YRS ([address] [facility] Test 00:00:00 - PCV) [code = Medical Cente r PNEUMOCOCCAL 65+ YRS (1 - PCV)] Future Scheduled 2013 PNEUMOCOCCAL 65+ YRS ([address] [facility] Test 00:00:00 - PCV) [code = Medical Cente r PNEUMOCOCCAL 65+ YRS (1 - PCV)] Future Scheduled 2013 PNEUMOCOCCAL 65+ YRS ([address] [facility] Test 00:00:00 - PCV) [code = Medical Cente r PNEUMOCOCCAL 65+ YRS (1 - PCV)] Future Scheduled 2013 PNEUMOCOCCAL 65+ YRS ([address] [facility] Test 00:00:00 of 1 - [id number] Medica l Center PCV13) [code = PNEUMOCOCCAL 65+ YRS (1 of 1 - [id number] PCV13)] Future Scheduled 2013 PNEUMOCOCCAL 65+ YRS ([address] [facility] Test 00:00:00 of 1 - [id number]_Sccdqhj Medica l Center PCV13) [code = PNEUMOCOCCAL 65+ YRS (1 of 1 - [id number] PCV13)] Future Scheduled 2013 PNEUMOCOCCAL 65+ YRS ([address] [facility] Test 00:00:00 of 1 - [id number]_Ilydxde Medica l Center PCV13) [code = PNEUMOCOCCAL 65+ YRS (1 of 1 - [id number]_Bilwjat PCV13)] Future Scheduled 2013 PNEUMOCOCCAL 65+ YRS ([address] [facility] Test 00:00:00 of 1 - [id number]_Oirfwae Medica l Center PCV13) [code = PNEUMOCOCCAL 65+ YRS (1 of 1 - [id number]_Oovjunl PCV13)] Future Scheduled 2004-10-14 MEDICARE ANNUAL [facility] [...] IPPE)] Future Scheduled 1998 SHINGLES VACCINES ([address] [facility] 00:00:00 2) [code = SHINGLES Medical Center VACCINES (1 of 2)] Future Scheduled 1998 SHINGLES VACCINES ([address] [facility] 00:00:00 2) [code = SHINGLES Medical Center VACCINES (1 of 2)] Future Scheduled 1998 SHINGLES VACCINES ([address] [facility] Test 00:00:00 2) [code = SHINGLES Medical Center VACCINES (1 of 2)] Future Scheduled 1998 SHINGLES VACCINES ([address] [facility] Test 00:00:00 2) [code = SHINGLES Medical Center VACCINES (1 of 2)] Future Scheduled 1998 SHINGLES VACCINES ([address] [facility] 00:00:00 2) [code = SHINGLES Medical Center VACCINES (1 of 2)] Future Scheduled 1998 SHINGLES VACCINES ([address] [facility] 00:00:00 2) [code = SHINGLES Medical Center VACCINES (1 of 2)] Future Scheduled 1998 SHINGLES VACCINES ([address] [facility] 00:00:00 2) [code = SHINGLES Medical Center VACCINES (1 of 2)] Future Scheduled 1998 SHINGLES VACCINES ([address] [facility] 00:00:00 2) [code = SHINGLES Medical Center VACCINES (1 of 2)] Future Scheduled 1998 SHINGLES VACCINES ([address] [facility] 00:00:00 2) [code = SHINGLES Medical Center VACCINES (1 of 2)] Future Scheduled 1998 SHINGLES VACCINES ([address] [facility] 00:00:00 2) [code = SHINGLES Medical Center VACCINES (1 of 2)] Future Scheduled [...] HEPATITIS C Medical Center SCREENING] Future Scheduled [address] [facility] Test 00:00:00 Counseling and Medical Cente r Screening (12+) [code = Tobacco Cessation Counseling and Screening (12+)] Future Scheduled [address] [facility] Test 00:00:00 Counseling and Medical Cente r Screening (12+) [code = Tobacco Cessation Counseling and Screening (12+)] Future Scheduled 1958 DIABETIC EYE EXAM [code [facility] 00:00:00 = DIABETIC EYE EXAM] Medical Center Future Scheduled [address] [facility] 00:[facility]:00 examination Medical Center (regime/therapy) [code = 004739737] Future Scheduled 1958 Urine screening for [facility] 00:00:00 protein (procedure) Medical Center [code = 145340780] Future Scheduled 1958 DIABETIC EYE EXAM [code [facility] 00:00:00 = DIABETIC EYE EXAM] Medical Center Future Scheduled [address] [facility] 00:00:00 examination Medical Center (regime/therapy) [code = 810674448] Future Scheduled 1958 Urine screening for [facility] 00:00:00 protein (procedure) Medical Center [code = 750330298] Future Scheduled 1958 DIABETIC EYE EXAM [code [facility] 00:00:00 = DIABETIC EYE EXAM] Medical Center Future Scheduled [address] [facility] 00:00:00 examination Medical Center (regime/therapy) [code = 532074871] Future Scheduled 1958 Urine screening for [facility] 00:00:00 protein (procedure) Medical Center [code = 375090648] Future Scheduled 1958 DIABETIC EYE EXAM [code [facility] 00:00:00 = DIABETIC EYE EXAM] Medical Center Future Scheduled [address] [facility] 00:00:00 examination Medical Center (regime/therapy) [code = 400479507] Future Scheduled 1958 Urine screening for [facility] 00:00:00 protein (procedure) Medical Center [code = 025426190] Future Scheduled 1958 DIABETIC EYE EXAM [code [facility] 00:00:00 = DIABETIC EYE EXAM] Medical Center Future Scheduled [address] [facility] 00:00:00 examination Medical Center (regime/therapy) [code = 708003070] Future Scheduled 1958 Urine screening for [facility] 00:00:00 protein (procedure) Medical Center [code = 628744341] Future Scheduled 1958 DIABETIC EYE EXAM [code [facility] 00:00:00 = DIABETIC EYE EXAM] Medical Center Future Scheduled [address] [facility] 00:00:00 examination Medical Center (regime/therapy) [code = 526732670] Future Scheduled 1958 Urine screening for [facility] 00:00:00 protein (procedure) Medical Center [code = 605181998] Future Scheduled 1958 DIABETIC EYE EXAM [code [facility] 00:00:00 = DIABETIC EYE EXAM] Medical Center Future Scheduled [address] [facility] 00:00:00 examination Medical Center (regime/therapy) [code = 530105130] Future Scheduled 1958 Urine screening for [facility] 00:00:00 protein (procedure) Medical Center [code = 317004166] Future Scheduled 1954 PNEUMOCOCCAL 65+ YRS ([address] [facility] Test 00:00:00 - PCV) [code = Medical Cente r PNEUMOCOCCAL 65+ YRS (1 - PCV)] Future Scheduled 1954 PNEUMOCOCCAL 65+ YRS ([address] [facility] Test 00:00:00 - PCV) [code = Medical Cente r PNEUMOCOCCAL 65+ YRS (1 - PCV)] Future Scheduled 1954 PNEUMOCOCCAL 65+ YRS ([address] [facility] Test 00:00:00 - PCV) [code = Medical Cente r PNEUMOCOCCAL 65+ YRS (1 - PCV)] Future Scheduled 1949-02-08 COVID-19 VACCINE (#1) [facility]:00:00 [code = COVID-[address] VACCINE (#1)] Future Scheduled 1949-02-08 COVID-19 VACCINE (#1) [facility] 00:00:00 [code = COVID-[address] VACCINE (#1)] Future Scheduled 1949-02-08 COVID-19 VACCINE (#1) [facility] 00:00:00 [code = COVID-[address] VACCINE (#1)] Future Scheduled 1948 Screening for malignant [facility] Test 00:00:00 neoplasm of colon Medical Ce nter (procedure) [code = 358688604] Future Scheduled 1948 Sigmoidoscopy [code = [facility] Sigmoidoscopy] Medical Cente r Future Scheduled 1948 Screening for malignant [facility] Test 00:00:00 neoplasm of breast Medical C enter (procedure) [code = 557221594] Future Scheduled 1948 CT Colonography (combo) [facility] Test 00:00:00 [code = CT Colonography [facility] (combo)] Future Scheduled 1948 Screening for malignant [facility] Test 00:00:00 neoplasm of colon Medical Ce nter (procedure) [code = 896348513] Future Scheduled 1948 Screening for malignant [facility] Test 00:00:00 neoplasm of colon Medical Ce nter (procedure) [code = 144767805] Future Scheduled 1948 DXA SCAN [code = DXA [facility] Test 00:00:00 SCAN] [facility] Future Scheduled 1948 Screening for malignant [facility] 00:00:00 neoplasm of colon Medical Ce nter (procedure) [code = 906405198] Future Scheduled 1948 Screening for malignant [facility] 00:00:00 neoplasm of breast Medical C enter (procedure) [code = 383586512] Future Scheduled 1948 CT Colonography (combo) [facility] 00:00:00 [code = CT Colonography [facility] (combo)] Future Scheduled 1948 Screening for malignant [facility] 00:00:00 neoplasm of colon Medical Ce nter (procedure) [code = 616513110] Future Scheduled 1948 Screening for malignant [facility] 00:00:00 neoplasm of colon Medical Ce nter (procedure) [code = 480482504] Future Scheduled 1948 DXA SCAN [code = DXA [facility] 00:00:00 SCAN] [facility] Future Scheduled 1948 Screening for malignant [facility] 00:00:00 neoplasm of colon Medical Ce nter (procedure) [code = 469389956] Future Scheduled 1948 Screening for malignant [facility] 00:00:00 neoplasm of colon Medical Ce nter (procedure) [code = 924342233] Future Scheduled 1948 Sigmoidoscopy [code = [facility]] [facility] Future Scheduled 1948 Screening for malignant [facility] 00:00:00 neoplasm of colon Medical Ce nter (procedure) [code = 439450608] Future Scheduled 1948 Sigmoidoscopy [code = [facility] Sigm[facility]oscopy] [facility] Future Scheduled 1948 Screening for malignant [facility] 00:00:00 neoplasm of breast Medical C enter (procedure) [code = 468892735] Future Scheduled 1948 CT Colonography (combo) [facility] 00:00:00 [code = CT Colonography [facility] (combo)] Future Scheduled 1948 Screening for malignant [facility] 00:00:00 neoplasm of colon Medical Ce nter (procedure) [code = 440577533] Future Scheduled 1948 Screening for malignant [facility] 00:00:00 neoplasm of colon Medical Ce nter (procedure) [code = 844230129] Future Scheduled 1948 DXA SCAN [code = DXA [facility] 00:00:00 SCAN] [facility] Future Scheduled 1948 Screening for malignant [facility] 00:00:00 neoplasm of colon Medical Ce nter (procedure) [code = 925713493] Future Scheduled 1948 Screening for malignant [facility] 00:00:00 neoplasm of colon Medical Ce nter (procedure) [code = 605203995] Future Scheduled 1948 Sigmoidoscopy [code = [facility]] [facility] Future Scheduled 1948 Screening for malignant [facility] 00:00:00 neoplasm of breast Medical C enter (procedure) [code = 629619558] Future Scheduled 1948 CT Colonography (combo) [facility] 00:00:00 [code = CT Colonography [facility] (combo)] Future Scheduled 1948 Screening for malignant [facility] 00:00:00 neoplasm of colon Medical Ce nter (procedure) [code = 032381065] Future Scheduled 1948 Screening for malignant [facility] 00:00:00 neoplasm of colon Medical Ce nter (procedure) [code = 673218893] Future Scheduled 1948 DXA SCAN [code = DXA [facility] 00:00:00 SCAN] [facility] Future Scheduled 1948 Screening for malignant [facility] 00:00:00 neoplasm of colon Medical Ce nter (procedure) [code = 598206750] Future Scheduled 1948 Screening for malignant [facility] 00:00:00 neoplasm of breast Medical C enter (procedure) [code = 479651453] Future Scheduled 1948 Screening for malignant [facility] 00:00:00 neoplasm of colon Medical Ce nter (procedure) [code = 924582607] Future Scheduled 1948 Screening for malignant [facility] 00:00:00 neoplasm of breast Medical C enter (procedure) [code = 120256443] Future Scheduled 1948 Screening for malignant [facility] 00:00:00 neoplasm of colon Medical Ce nter (procedure) [code = 867830443] Future Scheduled 1948 Screening for malignant [facility] 00:00:00 neoplasm of breast Medical C enter (procedure) [code = 607396974] Future Scheduled 1948 Screening for malignant [facility] 00:00:00 neoplasm of colon Medical Ce nter (procedure) [code = 359635160] Future Scheduled 1948 Screening for malignant [facility] 00:00:00 neoplasm of breast Medical C enter (procedure) [code = 759697690] Future Scheduled 1948 Screening for malignant [facility] 00:00:00 neoplasm of colon Medical Ce nter (procedure) [code = 932628255] Future Scheduled 1948 Screening for malignant [facility] 00:00:00 neoplasm of breast Medical C enter (procedure) [code = 300973111] Future Scheduled 1948 CT Colonography (combo) [facility] 00:00:00 [code = CT Colonography [facility] (combo)] Future Scheduled 1948 Screening for malignant [facility] 00:00:00 neoplasm of colon Medical Ce nter (procedure) [code = 915947935] Future Scheduled 1948 Screening for malignant [facility] 00:00:00 neoplasm of colon Medical Ce nter (procedure) [code = 908919897] Future Scheduled 1948 DXA SCAN [code = DXA [facility] 00:00:00 SCAN] [facility] Future Scheduled 1948 Screening for malignant [facility] 00:00:00 neoplasm of colon Medical Ce nter (procedure) [code = 945975858] Future Scheduled 1948 Screening for malignant [facility] 00:00:00 neoplasm of colon Medical Ce nter (procedure) [code = 477162736] Future Scheduled 1948 Sigmoidoscopy [code = [facility] 1948 Screening for malignant [facility] 00:00:00 neoplasm of breast Medical C enter (procedure) [code = 805033372] Future Scheduled 1948 CT Colonography (combo) [facility] 00:00:00 [code = CT Colonography [facility] (combo)] Future Scheduled 1948 Screening for malignant [facility] 00:00:00 neoplasm of colon Medical Ce nter (procedure) [code = 171200390] Future Scheduled 1948 Screening for malignant [facility] 00:00:00 neoplasm of colon Medical Ce nter (procedure) [code = 733452337] Future Scheduled 1948 DXA SCAN [code = DXA [facility] 00:00:00 SCAN] [facility] Future Scheduled 1948 Screening for malignant [facility] 00:00:00 neoplasm of colon Medical Ce nter (procedure) [code = 077370461] Future Scheduled 1948 Screening for malignant [facility] 00:00:00 neoplasm of colon Medical Ce nter (procedure) [code = 744923148] Future Scheduled 1948 Sigmoidoscopy [facility]code = [facility] En[facility] Start End Encounter Admission Attending Care Care Encounter Source Date/Time Date/Time Type Type Clinicians Facility Department ID 2022-04-06 [facility] [id number] [facility] 16:[facility]00 [facility] 2022-04-06 [facility] [id number] [facility] 16:46:00 [facility] 2021-06-21 Inpatient ER LEX, SLEErvin Gastro [id number] [facility] 02:39:12 [place] 2022-10-27 2022-10-27 Outpatient R MAIRA [facility] [id number] Univers 14:45:00 14:45:00 BALDOMEROMARIA DOLORES reynolds [facility] 2022-10-21 2022-10-21 [facility] [id number] Univers 09:45:00 10:16:42 [facility] 2022-10-21 2022-10-21 [facility] [id number] [facility] 09:45:00 10:16:42 Visit Baldomero Camacho Escapio 350.1.13.10 it y of [place] 4.2.7.2.686 Arnie as DERIK?BLEA [phone] Va jermaine JOHNSON [address] [place] [address] 2022-10-13 2022-10-13 Out[facility] [id number] Univers 15:30:00 15:30:00 BALDOMERO wolf [facility] 2022-10-11 2022-10-11 Telephone [facility] 1.2.840.114 [id number] Univers 00:00:00 00:00:00 Baldomero Camacho Escapio 350.1.13.10 it y of [place] 4.2.7.2.686 Arnie as DERIK?BLEA [phone] Va jermaine JOHNSON [address] [place] [address] OFFICE [facility] 2022-10-08 2022-10-08 Telephone [facility] 1.2.840.114 [id number] Univers 00:00:00 00:00:00 Baldomero Camacho Escapio 350.1.13.10 it y of [place] 4.2.7.2.686 Arnie as DERIK?BLEA [phone] Va jermaine JOHNSON [address] [place] [address] OFFICE [facility] 2022-10-06 2022-10-06 Telephone [facility] 1.2.840.114 [id number] Univers 00:00:00 00:00:00 Baldomero Camacho HEALTH 350.1.13.10 it y of [place] 4.2.7.2.686 Arnie as DERIK?BLEA [phone] Va jermaine JOHNSON [address] OFFICE [facility] 2022-10-04 2022-10-04 [facility], Ang - Db [facility] 1.2.840.1 [id number] Univers 15:15:00 15:30:00 Visit Baldomero Rao 350.1.13.10 [facility] 4.2.7.2.686 Arnie as DERIK?BLEA [phone] Va jermaine JOHNSON [address] OFFICE [facility] 2022-10-04 2022-10-04 Outpatient [facility] [id number] Univers 14:30:00 15:22:10 BALDOMERO ity [facility] 2022-10-04 2022-10-04 [facility] [id number] Univers 14:30:00 15:22:10 Visit Baldomero ANGLIN 350.1.13.10 it y of [place] 4.2.7.2.686 Arnie as DERIK?BLEA [phone] Va jermaine JOHNSON [address] OFFICE [facility] 2022-10-04 2022-10-04 Orders Doctor HEAVEN 1.2.840.114 [id number] Univers 00:00:00 00:00:00 Only Unassigned, ARIS 350.1.13.10 ity of [facility] 4.2.7.2.686 Arnie as [phone] [address] 2022-10-01 2022-10-01 Telephone [facility] 1.2.840.114 [id number] Univers 00:00:00 00:00:00 Baldomero Camacho HEALTH 350.1.13.10 it y of [place] 4.2.7.2.686 Arnie as DERIK?BLEA [phone] Va debiangelito JOHNSON [address] [place] MEDICAL OFFICE [facility] 2022-09-28 2022-09-28 Orders Doctor HEAVEN 1.2.840.114 [id number] Univers 00:00:00 00:00:00 Only Unassigned, ARIS 350.1.13.10 ity of [facility] 4.2.7.2.686 Arnie as [phone] [facility] josephine [address] 2022-07-26 2022-07-26 Office SUYAPA Garza 1.2.840.114 [id number] 15:10:00 16:30:36 Visit Heaven R. AMBULATOR 350.1.13.21 College Y 0.2.7.2.686 of [phone] Medi micaela 600 e 2022-04-26 2022-04-26 Office SAIDA Garza 1.2.840.114 [id number] 14:30:00 15:15:18 Visit Heaven R. AMBULATOR 350.1.13.21 College Y 0.2.7.2.686 of [phone] Medi micaela 600 e 2022-04-26 2022-04-26 Outpatient BCM [facility] [id number] 14:45:42 14:45:42 [facility]in [facility] 2022-04-26 2022-04-26 Outpatient BCM [facility] [id number] 14:45:41 14:45:41 [facility] 2022-04-06 2022-04-13 [facility] [id number] 16:50:00 19:40:00 Encounter Rosa Isela Cihng [facility] 2022-04-06 2022-04-13 Inpatient ER [facility] Surgery [id number] [facility] 16:50:00 19:40:00 [facility] 2022-04-06 2022-04-13 [facility] [id number] 16:50:00 19:40:00 Encounter Rosa Isela Ching [facility] 2022-04-07 2022-04-[address] [facility] [id number] 12:31:00 16:21:00 Event Lili [facility] 2022-04-07 2022-04-[address] [facility] [id number] 12:31:00 16:21:00 Event Lili [facility] 2022-04-07 2022-04-07 Surgery Greg, [facility] [id number] 12:00:00 14:51:00 [facility] 2022-04-07 2022-04-07 Surgery Greg, [facility] [id number] 12:00:00 14:51:00 [facility] 2022-04-07 2022-04-07 Travel [facility] [id number] [facility] 00:[facility]00 00:00:00 [facility] 2022-04-07 2022-04-07 Travel [facility] [id number] [facility] 00:[facility]00 00:00:00 [facility] 2022-04-06 2022-04-06 Outpatient [facility] [id number] 16:50:00 23:59:00 [facility] 2021-08-10 2021-08-10 Outpatient MCKAY [place] [facility] [id number] 10:38:01 17:18:04 LEV [facility] 2021-07-24 2021-07-24 Emergency X [facility] ERT [id number] Univers 10:12:00 14:31:00 GLENN reynolds [facility] 2021-07-24 2021-07-24 Emergency [facility] [id number] Univers 10:12:00 14:31:00 Glenn DONATO 350.1.13.10 [facility] 4.2.7.2.686 [facility] [phone] [address] 2021-05-04 2021-05-07 [facility] Cherie Faustin [facility] [id number] 17:37:00 10:59:00 [facility] 2021-05-06 2021-05-[address] [facility] [id number] 15:10:00 16:27:00 Event Jm Rushing [facility] 2021-05-06 2021-05-[address] [facility] [id number] 13:00:00 14:30:00 [facility] 2021-05-05 2021-05-05 Travel [facility] [id number] [facility] 00:00:00 00:00:00 [facility] 2021-05-04 2021-05-04 Outpatient [facility] [id number] 00:00:00 23:59:00 [facility] 2021-05-04 2021-05-04 Emergency ER SLE Emergency [id number] [facility] 17:24:00 17:24:00 2021-05-04 2021-05-[address] [facility] [id number] 00:00:00 00:00:00 Only [facility] 2021-05-04 2021-05-04 Travel [facility] [id number] [facility] 00:[facility]:00 00:00:00 [facility] 2021-05-01 2021-05-01 Emergency E EVANGELINA, [facility] BL 7505 [facility] 16:21:00 22:56:00 CRISTELA 2021-03-13 2021-03-[address] [facility] [id number] 00:00:00 00:00:00 Tyesha Galina [facility] 2021-03-08 2021-03-11 Hospital ER Paola Burnett [facility] [id number] 23:13:00 11:35:00 Encounter [facility] 2021-03-10 2021-03-[address] [facility] [id number] 11:00:00 12:30:00 [facility] 2021-03-10 2021-03-[address] [facility] [id number] CH[facility] 11:36:00 12:27:00 Event Graciela [facility] 2018-02-01 2018-02-01 BRENDAN [facility] [id number] 08:00:00 08:00:00 t; HOLLIE ACUÑA, Miguel Angel Mack M.D. Results Test Description Test Time Test Comments Results Result Comments Source Tissue Exam 2022-04-14 16:40:15 Test Item Value Reference Range Interpretation Comme nts Case Report (test code = 104) Surgical Pathology Report Case: [id number] Authorizing Provider: Heaven Garza MD Collected: 04/07/2022 03:36 PM Ordering Location: [facility] PERIOPERAT[facility] Received: 04/07/2022 04:23 PM SERVICES Pathologist: Omari Lora MD Specimen: Femoral Head, Right Hip DIAGNOSIS (test code = 3220) r0nqgHVsEKMhi9ivEAUyvHYcHgIySdFbCuYoCw pc dWMxIHtccnRmMVxlcGljOTYwMlxhbnNpXHNwbHRw U0EsjkosBLnuDR2iTP7kdIplpXGtfODjYNQmCdQp p3zaf111uLExg4tsJUOAcusujTi3dXcnU18rs3J4 CplyA91bgOMdEJY2OHXfUZDpqVLbIIDhDPW6ELYd qANvV7moUULoRK2gxsorMZdlBOqaPUPkyEK9KTWh dWPmB8GsBCZuKDrsOPYmbuw5PdNoRj4akPYyhBwn AHmaUTVmSDZdLIkyEUCiJwTrIr4DRBqyQdgHSNJj ZkKBU8WNDBVOWSKLFPBCFcVTPh0DQESALIwdeZXq AGBuUGTFXrsLKfxeOM2DTKbDOE3MBtwFV8YlPQSU AYJIYWIKBPVSBYOMMWYXGlOCMACNOSZYMG0PPNYx I86IO9fPCFSDPGNPNCLOOLnTD0BMGlgfM2MvNkHG Y2AVNvOpgZUrKLQsOVVLLpNNTCbJP34XXuXSCMKO HB5zbCDevXnwmqHjVItlh6BfHIkrIFZiKT5qnIwf DHOaSK8qYGFdO3tewJ6wltd7FdLnWOOcKrO2MFVg coW5Dad9YOMiCAktc6onm2BmJWVkQNm5iBaeHyIu TRDkb3bpeeVqSdHeEQPjOZYaNRLlwKDyN871p4mx s7obgkUvcIF6OFLyQNU0NVkyjbBcbzC9SFfjfDIq QqX4BMbgwaCiZVyvdmWpawWtRgq9YFAwI837ELE0 mAduk9zlCWD7ISJyQQMdYqCcDr6lpPKdF879TUZg HRNMPWSsqHk5ZPIfmnDxodPczLYDs824U323e9di UHNrmkXwxCnEerzgx8xiZ197KIYyhUHdbyYbIhDi EEFeoJTaeSQ9QYUdCP0zzypwMKnrWXqiLSRbmzT6 MZAdsPQrU4PbDIViWI9xptdoGGQ2MIbkVPNvUEH4 YdLfPVJvl9Eidxd0WaOwww3hok40IPE7n2UiuUyv RJI9VAZ9KnQtAq9yfFLyLPUjKZ9jHaNekECwRFYr ya93wFovRQleSDV8XANwhfXfx0Jlj5anSqIwjcFb T8zoV0DzJWAwTSYjHTKzLxSvvlQhq3Pln7BrqGMw hJc3h6xhQDPjRXEtaBpxu7ygFCG2PGWeyRNfD7be rQ0dDDNuIL9twkpto0lrZTusKDknNWCzrWY7ydW2 FLRunAQtV6ZrzV6vHNZgLTzcJBLcfgu7YxOgGf9d dGVyeTcyMFxzYmtwYWdlXHBnbmNvbnRccGduZGVj XHBsYWluXHBsYWluXGYwXGZzMjRccWxcbGFuZzEw NyHocHwwlBspTAteYtUlZXRyUChhZ9yfDlOuSkMm Wxh8KXHsiIWqGTSfRbf4GAZuiILgYRXWuJypbG9u NYQhwYytjA0caQT3TOZidtDsjHXTnT5gWBCPbI4d RkF5WzPdXqV1IOt8CkPimBKksZ7= CPT Code(s) (test code = 2937) f5qkhKImCKCoxPW2ToVuFZOpb3hqt4XruJYe cGFy PRortVSfpjJwdd37tBG3pY88GL3vHDFrDaT6IJZq aoM8Bzp3TSUcANZgtUPwS694q2trx2aafvTsnAB8 tJpfDBScqtggSmD8SSfdDQOwxdsaCOg5BPdqFZIg uUN4RNJpaONzV0NcIWPmCR4xtzp5VDM3GLsxUUAz CrH5QNPmnPPbMYGfkIbiBMgwt149RDN8CxXnBAWy arOjrUfrpT8dFaFuKMQ6KJVuWAufXHrqECBftQHf fQ== CLINICAL HISTORY (test code = 0606) h9mcvVTcXGKefAP0EiNlLDDsx0jeq0H sdHBncGFy LXefsWQdzhYcrz96gOL3oL10VE7hINDsNjM9OPIs axI1Tzr7HWDsFMMldBDdY447u5dbe8joxcYgmRG9 MCKpULXkQ5AiYW9gHANvtRKmD32ptXKqJOU8SBLv LHAahVMhCQEeZEC5JXCwpMYeL4xnCSYrZY8sbfso MBdzOFdkYDSziMY6JKGtuKYtE8GkDPFlUAmsVXAb gnz4UkIsPx8tqNQjfXgtBXybPXBjLAMbRUfexEOn tappcrVdICYsEOBDUNcJJEONZOYlQiKAF5WLPoIm cGFyfQ== SPECIMEN SOURCE (test code = 3377) x5trmCSfIWStqEG1RkLhXVMmx5rsi4Bn dHBncGFy YBaqeTPkyeVzbf90tIY0fF19ZI7gYRNxOyH7IXFg apA7Dmj9YYIrGFJwtPDaN826j3bfx5ncqfXvzRE4 bQlzFOUgndgrNpE6XVjoCZPakjohVPl1FYdeSMZx eBF3ORAgbIPzX9BvQWTmQL9stnk6FKB3WPdzBRQy HyB7WBDjsKYlCAZzjDefAMbdw694WBT2GlHlZVDx jgCiuBizuI0qDwApHHGRPlNDKB1rtzLfDWoxDFDe BQRkE2e7MDlohT9kvBTkcJ== GROSS DESCRIPTION (test code = r4zmzJOdHMVvvWN3XoTgJZZol2hcl8BuaLXn cGFy [id number]) VCsteRBbstUtek86dNV9xT43AJ7lVYYnFiS0VDPw uiX3Pwt9ZWQyWQHkgMGhW651a1zgv7iwhzRpnEA2 SBPaEWJzK5PqCO9vLSLfbXDoP17fjWTpDCC2SXAx SLCoaTMlHCKzGNL6AHSxvPAoI8eiDUClMU0uyfmp ZEulJAivRGGwvII9NWHlyFOeS2JtEUQcWAqfHVZj gcb3DfTlPy1jdFLtaGziHJvdCPVaf6ckLYJspGBr WJW7MQdrgOAdSMXxQVJaSZr7TQTdBXwrvQXbUL6q mDbuZottqJegp0UpiYEuITtoLVIhOEUaWRjlHKJa W8DWUQEqQtl3KUtpLvFxZNl2LOvsS0ETQNXbMIS8 IBJ5JVKwIiX0UJc6VYAZJk3aXVj3PpO9LtL2QKQ0 UlB5GJpkkPBdJTvgGkucCNarMFWhxQVlNEsqecR4 PZYmEBwnMCCgRjSoZM2eNhQbj3AmxEGJAGBjZRHH aWdodCBIaXAuXHBhclxmczIwXGNmMSBSZWNlaXZl ZCBmcmVzaCBsYWJlbGVkIHdpdGggdGhlIHBhdGll zmGjazJmRA3gIVLjF6Zni0Aaz42lqqFaAoSpZFMh TGPkzekbdJRxvGdmKHBqrW2yUIbdoRVoUIRfwRGr KMK4LwChdJM1YoLafPNkKaWgV75wGfDda8YulMTg TQUlGXnzyQzjXXVgNShcPMPwRJxqhT0kxmhgZ6ej ACY1nqwsA9EiFS5lpstmjb8zLOGrESOvnwDbA1Za BFBld0GtXvLcDKDmpnCkcZ2bhSsbkX6vWjevMSc3 OOpeJK44iKYdFqEsQLgqBKC6sXAykIMsEGAlROhd IOJvcy61DImzo0ccISWxIhB9t6RebBQoPG9mppPn LJpbHlDzcAM8mTWzrZWmN8djKEY5hqHoKWB4lOG9 LAVrDT3mSRWcvy6oPFUFVENoYTMyqoXucTn7VDSo KPN3aG5edgFuolWto0ShjCm0jYLuEVezXJKxPQFk BXKcuOwsb5eoFdYjRNOisXToPepyFKPbd51eJGpa zXlpgHekJG6ulffamiTbdnVDOF8apCksLZdaoP0s FBPplVDpHXEhU5NigDpklqfoBDGaVTmIYYtBW4HN FBocUGYsL5EtR2SmvaW9m6tgcDvjh9IjeNSzGV3q cGFyfQ== MICROSCOPIC DESCRIPTION (test code = z1hbeXLwBSQiiMB2WsAlZJCgl4ehn0 BsdHBncGFy 3371) WKiooOUnrbEyrx55zQN4yZ75NU0yGQPzYtD8ZFXd pxI8Yti6OTFgVZOoaSZmJ264k2efg3xlmnOjyHU6 xHzfPOQsrksnRkA3IHccVZIviknuVPs6TWnqXBXy rMA1PJKipWXyM4LwSPEsGH9uhwr4TDG8HYfsBCPl NnD4UKCzeWBzCPGexBulKOxso097CJB6TaZjERYh liTsxEdssQ3bTeQhVREQVPOpt8RiJLWwRUWrat4= Gross assessment was performed at (test [facility] enter, code = 2777) Department of Pathology, [address] [place] [address], Technical component was performed at [facility] er, (test code = 2778) Department of Pathology, [address] [place] [address], Professional component was performed at [facility] enter, (test code = 2779) Department of Pathology, [address] [place] [address], [facility] [id number] 16:40:15 Test Item Value Reference Range Interpretation Comments Case Report (test code Surgical Pathology = 104) Report Case: [id number] Authorizing Provider: Heaven Garza MD Collected: 04/07/2022 03:36 PM Ordering Location: [facility] Received: 04/07/2022 04:23 PM SERVICES Pathologist: Omari Lora MD Specimen: Femoral Head, Right Hip DIAGNOSIS (test code = [id number]) uZzEwMzNcZnRuYmpcdWMxIH tccnRmMVxlcGljOTYwMlxhb xLfRJJivSJdU0HizvcfBNkt LH9nQB7hiEpwwJUguALpMJP qWrIbn5bfb406bRZpu4dvHG EGoyvyuOp3qDocB18ti3J1W zbfJ27jfNHhDPI7HSQtNJVr vWYuANLvGTK2XCAtrKCuB1u vMGVoWT7hizadRSgsYRimZN YfkNX2QGOpzVLpP8AnCOEjM KzjBLDbpfe5BtRpFf6oqLTk eTcyMFxwYXJkXHBsYWluXGZ qTrEdVx1XIQfjLzmYAEFxUj GFT1ZLPKUVUAYWXGCKPcNVA n1QHOWVMWggxWUkYAUiDBMG YpoGCyyiXN7SAPaEKF5OBov FC3BcQPQHAESFABXSJSKVMQ WLZYAVXgAOOWDMKNYEGY9LI PKtB04HW0oJRZGHAQEXHEAH WBcGY1MKXlilF2XjYlXKB0K VUkVccGFyICAgLSBOTyBNQU qVU67EOuBOEWJHZA3ppBNag HztzqVvEXjjp0DiBBzsVNDf ZB1hvEnuGZNhBZ6fJSRiT6q uqQ2xhks2IqCtJWOnTiD1DG JpzkS7Zdd9QCZyUVyqt5lbj 4KjPWEaWZf2qGtuVfLrIGAu c1zpplAiZyCkBLOsALQvUBN agVEqN255c5bny5wvafBsmV W6BADgHEU0XVcrwcVuxkA6J UnahTXvTwU8FSusnuXeKTbx loJqrbQcTla7EVTmN582OWX 9hQrph4ahZNC0CFEeOFKoMp ZlMw3tjIDcY042KPQuSBSXW DQsuIw1XHBvbrCxloKzmYUL b804I187v3tuHTUdpeKtkKo Wycisk4tdI674SYZevGBruw GtUwIgTVQrcQQvxER5EPFcH C0vexnwBShkBDjtOZYwasO0 XIDwfXLfE7JaPCHfKT5saqp hKMJ5ZLdrWJEkLAX7AuAtAO Bfd2Yozes1UgGynu6szl52R PJ6i2CnhIkbICG9YCA9TfNe Dy3mzTPjGCCtIA5yLdZigZR aVTHuus46yVsdNZupFYC6KD NafyAif2Kyp7jgYhCrseZnW 5omW0CyAZWfUPPhLWUbYcQi izZas6Rjm3FqeKKfvWb6o9y lLVUdTNAyvQomx6xpXEO0SC GigIIhI0gfsL1aYMJzDF2mx kzji4vcSIwfJSvwFVYwcKW9 pqY8AXNcsHWkQ0GvqG1hKIS qIAsuRFAzuwc2ZpPlRx0toV VyeTcyMFxzYmtwYWdlXHBnb mNvbnRccGduZGVjXHBsYWlu XHBsYWluXGYwXGZzMjRccWx cbGFuZzEwMzNcaGljaFxmMV krHxJsLEKiREbvC9ouPuVzB qAoAxm2VGBxbVAlKQJaEbr1 GWUbrMBpBMCFfTdfiY7bNRA diVbjoB1cvGK5YVYetkHitQ HPoO3dLFTSmJ0hRsM4DhKoM gS5FLe5WeLgcJKfmW6= CPT Code(s) (test code n7pkxYTxWAXwiBU3JkWbVAY = 3357) fk4vkw2VfkEGecAWgYEjyzQ FommQtlh61nTJ6nJ15ZL4lF LZtHwN5BUKsbgB5Rcg0LEIh RQSfhWLoK339l1vbp5inebX hsZK2lOgsFTJoqsrnGbW4DW otQXCexaodQFi8GTzmFGHbs CQ8LAZsxWWvO7QpKTEvAC1u pfm5ZKW0XMzbLDCkFqP7NUQ giOFnASHyyTruKZxra796PY Z1NhQqRAUgwrQqrDiwvC7pI wOaIWZ5PCUvQNxoTDkhPFCi cGFyfQ== CLINICAL HISTORY (test x4bbvAPsBDVqwAJ6CvRoMUV code = 3356) ie7opb3OjaVRhvAKwEKgqgQ HgmdJdgu96bJA5hS59JM1mL DTaVeI1MXTtuyM7Avf6YECq UOBhpODuT319f4riy3mpinD hoQF5WQLzFWAlI4MyOU7lOG GzyFNiL30ogPAyCSR6HUSgO LByoXClZFCySQL0SSSvrRFn S6rgAQPnAQ4dkdogIOziUPb tGPSywPE0XHKtlUIsG3CePS RtBJwlPKKpknw3BhTzLa7kd GVyeTcyMFxwYXJkXHJpMVxw bGFpblxmczIwXGNmMSBSSUd NDESCJJNcVjUJJ3WBFpVnnT FyfQ== SPECIMEN SOURCE (test s2utuUFaMQSxmSK1RaAeMJZ code = 3377) sp2tpd9EcdXGinCGsCYffxV EzycKozb05rKS1lL63ZH9xT JTsSnK5QIJcclO6Tjc4FBCq FOMzxXQlQ187v3tcu5hfixW wfCL7jLzaURSokozqJuP7SO ntRAAvhcchTPh5KGssQTWej SF2YKEnoSBhL6ThDKNyXW6k soi8KCC9WQmcJIJiYrK7AAD qoLElYATohFnfLHiam051PN A1KzZkASHaveKlxByjlA6eG nWyNBKCOzDRLW8smcOoKLzf RPUvIMJyM2r0KByzkJ2rtZI yfQ== GROSS DESCRIPTION y4hjoMTqQLSakRK6VdOfBWG (test code = pd2xyn1HmqTQfeYVbQHytzP [id number]) NwetEgbz02hUX5jY20CV6yS VDwKhK2XQJwciM5Jqz3TGBi HNSwsFWmL332i6rlq4xzirU qmML7MFDcDZLvG7CaFE3rCE ApwMCzE35axBJmFZJ4MBZzK UTttCFsGHStMZB3KDHkfFAg I3mfOQLyFE2igvsbCBgzNVy zZKOhlPZ0LFBjiIAhD0ZlJF GtROycWJVlnnn3QaViTd9xo LRcoLqxGQwaYEZmc3jnYFUx pPPwGHD7RVrqeGToERVlVIW zTUs7HRHgNShtwRToTR3ozH jvJljyaBvif7GcbWVwCVxnZ AOoSQBvXCnfPLZiA6WGFFAf Pfx4QNgyIbOkOMc0DNazO8M ACMGcHRU4XAG7VWVoKwK2FI c4VWNINa3jGPw2FcY8DoY4R UB1LbB7JQeiqKJkRYkbTmbd YLcjAKXghQQvMYcngpQ3HTH dEZfnSMQpBkZxAN5uEsSbk9 JhbCBIZWFkLCBSaWdodCBIa XAuXHBhclxmczIwXGNmMSBS ZWNlaXZlZCBmcmVzaCBsYWJ lbGVkIHdpdGggdGhlIHBhdG gzvpLfdkBgGL2oWWArN5Afq 7Wts78ngkXjDoAsEFUpQEYj gxybjZRpwNdxZQZgvE0dKDq qrFNcUKTtzGYaWDR9PtYhcB H4MrVljSZtVmJhU55cYiRmj 3JhbCBoZWFkIHdpdGggYSBq PDjgSDNdUPwuvW8xmvgsS9t dEOR0tstlV2LdTO2fmhkqld 0pZBLpJNNrfdPbR9IhTVMpe 7LhBmBlDQRzcdGyuG3jrGbl pK7uCcjhVHt4SQbaAW07aXC hKyQqEWnuRKY4jGUtwIOeJZ JwFXelMCMirs96XKyze6jkF KHuNlL4o0HauMEcXU2qohIc IFitDhImdGU9nCQgxOGpF8p bYFU5tyUbTVD8hAK7EYClTP 1sEQWtxg6vAXEHBUQnYIGlf oHrlYt0FBTyTHU7cQ6pyvEo pjFrt3VpbXm2tKShEBhkZGN oGSRqQAPxeRfzb6dpZiHkEO LkiRRjVdwfOQMtb74wIDoze NvgdRueEH3vqfrnoeLtomET XK7jiXtjWJmamU7mATLaeMT sDIKsL0ZstXeqpairHXSpGZ jFLOmLH0MWGLzlQRIjP6EwQ 8BnzlQ8r8xsvCqcx7JxpXCe AB3liTSmmS== MICROSCOPIC j1wztCJmNPVhoGJ4HcShKYS DESCRIPTION (test code sl0vyl9RktBZchNFbCHbwcH = 3371) XxcxDqqn31cSU9dI09QW3zC AEhMpO6IXQluzZ3Uep9KEDn NDKiyHGnU369e6ywh0vkfoO rcEM1aAawXUHouuucIrO7CW fcJQDdknmaFXb0FSpyPKDpk QM5HURcuROiC5HrTWKiDM0t bec0XYH4VSxcVENvJoB9WRJ nhLYbOSHedPhmYDlgh452KK I9MbHhBLGdsmXgzAsmaP3zJ zEzLXGTXXPkf1VfAIFoXMWy cn0= Gross assessment was [facility] performed at ([facility], code = 2777) Department of Pathology, [address] [place] [address], Technical component [facility] was performed at ([facility], code = 2778) Department of Pathology, [address] [place] [address], Professional component [facility] was performed at ([facility], code = 2779) Department of Pathology, [address] [place] [address], [facility] CenterTissue [id number] 16:40:15 Test Item Value Reference Range Interpretation Comments Case Report (test code Surgical Pathology = 104) Report Case: [id number] Authorizing Provider: Heaven Garza MD Collected: 04/07/2022 03:36 PM Ordering Location: [facility] PERI[facility] Received: 04/07/2022 04:23 PM SERVICES Pathologist: Omari Lora MD Specimen: Femoral Head, Right Hip DIAGNOSIS (test code = m7jkdDLmDASyq4hcNUSbgWB 3220) uZzEwMzNcZnRuYmpcdWMxIH tccnRmMVxlcGljOTYwMlxhb nOhBDJbuPVmL9UdlvuyJMto SX9rAA9ofItjxPIbnHRcCVF wDmDcw8yqd391gRXmd3dmLO FKvypfhQi7fYetL83qe0B9F xhrK91waQRkNFI2ZZOaYAFq gYFpFVNbAYC1NFCipHRjH4z hHXOsXY0mxhxaFHkvPXsqKC BueAU9EPIgkTOuR7IlYPGdB HiiDREgbsu6GgAeGr4ujJQd eTcyMFxwYXJkXHBsYWluXGZ cRhGeSs2GVZiiHarWGHPuUp VKH9NYDUIQKQVPDKVGJtQRQ e4DRSQJAZeajRGsXZIeOCLP YonSIxwwKR0EZMbXNH6REsn OS1LlHHVGYJDIJIEAOWIEQC TSEKLXMtAQPLINGLAZSX9EJ ZArT02XE2sBELIMBANHYVGS IStQG9YOGkkmC5EnQrMFV4D VUkVccGFyICAgLSBOTyBNQU cRA15WMuEEPVHZRV7znZCpk EkicuOhPXmjx1XxCQpqYMMu MR5ylHgyKJNcAH6bENGwO5k meH9eczf0RhIsTZBfYnO2LG OxamD1Fod6PTEzHShzq8vmd 3TfMZHkTBj6gUumApYaICCj c3mdifWiAaJiBDLgXMInIKY fiXHzW283e6vph9kxdcQehI W1JFYfVDS3ATcrxqEnytS4U PnozPLtRyV8HMwbaaEsOUgy ddZersHqBed6OAVhZ823DWH 5wAlwg1rgFLU8GXYeJYNmPa JoUm8qfLOgW823ZYDgASAFD KNovUt1JTDgmtOohzRngEOC x412C545n8jkMHAxjtQblUc Ewohxh1lvE935JUVubDKhkp GaMuDoNHWodXNkoWN1TFFlZ Q8ntbbeCNzgNJiaJZWvegP8 OTUxkEMuM4NiWPMwIF3ngjj iDET4KKzoGABrLCI1NjGkRY Rtn5Fefys5CnGmvs3wvw44B YL7g9DojLacQHN1GAT7LaOr Gu4zmPXjSLDmSQ3vMpVteYQ jNNUkfw37yRpdYXnbOIT4KI GzddFko0Sfk3lnMeXlesJyP 6oqB6UrCMKwNFSqGZUtTsLn diCie8Nov2YsvFCnsXb6f4k iFUCtACZebNhen9lhVPJ9ZP BrrACdZ9ijbD1oGONbSA1cr wjyg7uuGAdpHGucBDMojPN7 snH6ZGRfkZNmD4UxcB2xOUK nQRolSDMxzmf6WsZtHm5rzG VyeTcyMFxzYmtwYWdlXHBnb mNvbnRccGduZGVjXHBsYWlu XHBsYWluXGYwXGZzMjRccWx cbGFuZzEwMzNcaGljaFxmMV geGpMrHQOtGDerE6ugMlZoX fCmLxs0QOAhkQNaPMPsZey3 XZYmiCJuCTZGsWvgjF5hBMQ mjBjfzC2aaDT9GJHvrwInjX VVqB5iFXJQyE0bQcU1EgVjJ uV9SCp4HvTsfGHvsZ5= CPT Code(s) (test code p0ttmQFmBCRrdIH1LrMkRUD = 3357) km8pop1AbeLHteHQgUYbiqN XvplWaky48hRT4qD81YK4gU YGgLfM5YDKqrmM8Mtv4UIQw MQPehJWqL684j1vug6ybnkY wuFJ2tWvsUEUjtufiEbB3DY ptBBIiaznnLBs0PUtvUXYfi IW0QUNkdJYbI2VnHGQvKB5r yxc2FIJ1AKduECZyVlJ2TWT zmIVxSTKesPszRTaxv215DL F7TnVuBIUcfkJafElfxV0pL pOkGHT8IKKrQFktXAhvCCQw cGFyfQ== CLINICAL HISTORY (test y4rjrWByNLOqfMP0BnHhTYK code = 3356) qb1zwa2OujMMtgAQsUNlfdN DjymJuwj13nJV9fO75UJ5zZ WMkTaM4RXVgbvO7Htx9PAAj BOTmkMFsW381m8ulz0xtjbB pnIH7XCGmOCFaJ7XqKC0qPY ZjbHSzY05utQOsNAD9QNNfY UJriAXzQPCyDFO1LOHgiCEs F5ywCGLcXU9gyqtvBDfvSKl nOALppCV6IBJgfEEdC8SiXY QzYQaoHRBggbu5ZwCoCe3eq GVyeTcyMFxwYXJkXHJpMVxw bGFpblxmczIwXGNmMSBSSUd MMVASFLFnVwLHE5WNTfSgiF FyfQ== SPECIMEN SOURCE (test f9spyQIkMTRyfPC0MwIaIMS code = 3377) jt3qxv3MfcEVljOTvGLgznP DxnlCvvu79aPE7dI33CL4gY JMoIqE2CKUuudG6Iuw3OYDg DTYmvDFpB421t3mez7ndbcV chJZ9pElcDKNhhjmzZnA0XB dgBJVzsvqvVXe5ZTkoDYQkf RX6HFUtnJMvF0IkDUEnFS6s xlg9SKD9FUrnTCCfFoT8ZVR xmZFiMDDkvRmaEYmbl245DA A6AaGfOUUsnjOppJxaqW8eQ fTdIJUHViZIVW5hdoEwLLam TRBxJTKjD2e1CPsjtS1rvRI yfQ== GROSS DESCRIPTION s5ufaGBeAUYzhOC3JbLnBAG (test code = fy0dvj9FgyHHxzCEcVLhheR [id number]) PfuwKwxo54qWZ9xH48UT2zK XThDaJ3XSUlxwH7Nsp7OKWp RPQjxQIzC933v2uin8bpikL twLI9UMLsQQOpW7SkLE8cFN RqxWFpL56faFZtOAB4OWCuQ KVdnWNwERNtCRK1IGOfzNEa P0yzYRKtLL8vtlirYGemYMr eNMPhsKD6HZYccKFlR2EbOL YqYIayVVPjgkv8QuHnQd8vq AFrvYwjLUldEIWsp0ncSPJq zUQsLYV4KFzbvOMmRQFnKNC pZAf4SPXnZWbmjCDaSR9keV ihEucsxOtkn8RpfPJpNQfwV ZTpRERzRDfjSCSjO0ZUINAb Ozk2VTbaWdFoVSs1JEwwK5J SOSTrCGT7NWC5MRAkCfH7SQ y1TOVCBk0nRCi5BmU7QzA3J ME3FhQ4XZimoZJsUKgpSfnx IRztOYWogOMbBQcxpfZ0YIZ kUQseHPZsDwIvSH6hLiHuw8 JhbCBIZWFkLCBSaWdodCBIa XAuXHBhclxmczIwXGNmMSBS ZWNlaXZlZCBmcmVzaCBsYWJ lbGVkIHdpdGggdGhlIHBhdG jprdNyqvDjRE0tHFHrY2Cem 7Ycj88msmCuLwGnRSMoYJUx lfsfeHQgbGlkGDVzaR0eEOe dkSTsCZDdwIWeMQI8DyRjqH K1IgLeaTQwTgExY50lOrDrz 3JhbCBoZWFkIHdpdGggYSBq NUhiAGYlTQvdwE9aqkqyV8g uXGW4lycjC3LnYQ9isjciso 8aZJNuLNNlmxCiP4JeQQIdj 1MsOiVqUYHkhiNbeM6nlEec wW9pAhcaUAa6OAlkLB61nFQ rWiHnOUbbNMD7fOTygGMnVV HhKDxdYMBogs05GIrvr7gzG NKnWsA4w7GzaDQhFY9xxmQe JOrgXzAfaYK5bQNsyODhM4x wDES6soXaFSI8ePO4SHZxQX 9aHDRgps0zPIYQLDYxGZIng mPxlOp5ZDHuAUL4fP4zskQt iuKaz1RljOd7fTNyWJluNOS oIADpRUPjhEbvl3weJsPuSZ RnwYAgIqlcMFBck73eJTwia XwuoOzwGN1yccebnzNuxmQO CD3mrWpbLJgttV2kXSNwjCV lROShJ9QuxUsbnhilQEThMK oYCFpHJ3EWJDtqJDPsZ0LpW 8CyjnW2o1urbCcsx6UtdWAx PG7gmISwxO== MICROSCOPIC s8chxCIgXAFekKR4HgNgRMD DESCRIPTION (test code at3ykh9JxwXJszGDhOUsbrJ = 3371) EzbdFamk47dXH1fW73CU5oH OFmXhH5TFNploL9Vbw4YLSf TMVbcOJpE572o1hpf7yxpbN piLD4hOpgZZMfkmeuVpR2JX deKGQpenedCMv7AUqkDZWwi ON6LFGdgQEkL2PrNTVcZF7p dcf1YVN7SXlnWPKfHcC7JDJ xdRJsOBVdwDvbEGhrm939MW X2HvZtSKGfueBlmVwmzT5bM hQyRQUGUDWqk0SrNLSmHURu cn0= Gross assessment was [facility] performed at ([facility], code = 2777) Department of Pathology, [address] [place] [address], Technical component [facility] was performed at ([facility], code = 2778) Department of Pathology, [address] [place] [address], Professional component [facility] was performed at ([facility], code = 2779) Department of Pathology, [address] [place] [address], [facility] CenterTISSUE [id number] 16:40:15Surgical Pathology Report Case: [id number] Authorizing Provider: Heaven Garza MD Collected: 04/07/2022 03:36 PM Ordering Location: [facility] PERI[facility]IVE Received: 04/07/2022 04:23 PM SERVICES Pathologist: Omari Lora MD Specimen: Femoral Head, Right Hip BONE, RIGHT FEMORAL HEAD, ARTHROPLASTY - ORGANIZING HEMORRHAGE, REACTIVE AND REPARATIVE CHANGES CONSISTENT WITH HISTORY OF FRACTURE - NO MALIGNANCY SEEN Signing Pathologist Direct Phone Line: [phone] signed by Omari Lora MD on 04/14/2022 at 4:40 [id number], [id number] HIP FRACTUREA. Femoral Head, Right Hip.A. Femoral Head, Right Hip.Received fresh labeled with the patient's name, accession number and "right hip femoralhead" is a 4.0 x 4.0 x 3.0 cm femoral head with a jagged, hemorrhagic surgical margin. The articular surface is smooth to finely granular. The cut surface is zurita-yellow, diffusely hemorrhagic at the margin, trabeculated and firm. Pier Master Assistant sections are submitted in A1-A3 following decalcification, with the margin in A1.HANNAH Cox, HT (ASCP)Performed.[facility], Department of Pathology, [address] [place] [address], [facility], [address] [place] [address], [facility], Department of Pathology, [address] [place] [address], SARS-CoV2/RT-PCR (Asymptomatic ONLY)2022-04-13 17:25:46 Test Item Value Reference Interpretation Comments Range SARS-COV2/RT-PCR Negative Negative The SARS-Co V-2 (test code = target nucleic 86607-5) acids are not detected in thi s specimen. Negat tonio results do not preclude SARS-C oV-2 infection and should not be u sed as the sole bas is for patient management decisions. Nega tive results must be combined with clinical observations, patient history , and epidemiolog ical information. A false negative result may occu r if a specimen is improperly collected, transported or handled. This S ARS CoV-2 test is a rapid, real-doug e [...] revoked sooner. Fact Sheet for Healthcare Providers: https://www.[employer]/Documents/Xp ert%20Xpress%20SAR S%20CoV-2/Fact%20S heets/302-3802%20S ARS-COV-2%20HEALTH CARE%20PROVIDERS%2 0FACT%20SHEET.pdf Fact Sheet for Healthcare Patients: https://www.[employer]/Documents/Xp ert%20Xpress%20SAR S%20CoV-2/Fact%20S heets/302-3801%20S ARS-COV-2%20PATIEN T%20FACT%20SHEET.p df Lab Interpretation Normal (test code = 17656-8) [facility]2022-04-13 17:25:46 Test Item Value Reference Interpretation Comments Range SARS-COV2/RT-PCR Negative Negative The SARS-Co V-2 (test code = target nucleic 39562-7) acids are not detected in thi s specimen. Negat tonio results do not preclude SARS-C oV-2 infection and should not be u sed as the sole bas is for patient management decisions. Nega tive results must be combined with clinical observations, patient history , and epidemiolog ical information. A false negative result may occu r if a specimen is improperly collected, transported or handled. This S ARS CoV-2 test is a rapid, real-doug e RT-PCR test intended for e qualitative detection [...] revoked sooner. Fact Sheet for Healthcare Providers: https://www.[employer]Ps/Documents/Xp ert%20Xpress%20SAR S%20CoV-2/Fact%20S heets/302-3802%20S ARS-COV-2%20HEALTH CARE%20PROVIDERS%2 0FACT%20SHEET.pdf Fact Sheet for Healthcare Patients: https://www.[employer]/Documents/Xp ert%20Xpress%20SAR S%20CoV-2/Fact%20S heets/302-3801%20S ARS-COV-2%20PATIEN T%20FACT%20SHEET.p df Lab Interpretation Normal (test code = 53448-3) [facility]2022-04-13 17:25:46 Test Item Value Reference Interpretation Comments Range SARS-COV2/RT-PCR Negative Negative The SARS-Co V-2 (test code = target nucleic 02122-6) acids are not detected in thi s specimen. Negat tonio results do not preclude SARS-C oV-2 infection and should not be u sed as the sole bas is for patient management decisions. Nega tive results must be combined with clinical observations, patient history , and epidemiolog ical information. A false negative result may occu r if a specimen is improperly collected, transported or handled. This S ARS CoV-2 test is a rapid, real-doug e [...] revoked sooner. Fact Sheet for Healthcare Providers: https://www.SERPs/Documents/Xp ert%20Xpress%20SAR S%20CoV-2/Fact%20S heets/302-3802%20S ARS-COV-2%20HEALTH CARE%20PROVIDERS%2 0FACT%20SHEET.pdf Fact Sheet for Healthcare Patients: https://wwwRevision [employer]/Documents/Xp ert%20Xpress%20SAR S%20CoV-2/Fact%20S heets/302-3801%20S ARS-COV-2%20PATIEN T%20FACT%20SHEET.p df Lab Interpretation Normal (test code = 45128-9) [facility])2022-04-13 17:25:46 Test Item Value Reference Range Interpretation Comments SARS-COV2/RT-PCR Negative Negative The SARS-Co V-2 target (test code = nucleic acids a re not 3434656) detected in thi s specimen. Negative result s do not preclude SARS-C oV-2 infection and s hould not be used as the candace e basis for patient managem ent decisions. Nega tive results must be combine d with clinical observ ations, patient history , and epidemiological information. A false negativ e result may occur if a spec imen is improperly jaren ected, transported or handled. This SARS CoV-2 test is a rapid, real-time RT-PC R test intended for e qualitative detection of nu cleic acid [...] revoked sooner. Fact Sheet for Healthcare Providers: https://www.[employer] m/Documents/Xpert%20Xpress%20SARS%20CoV-2/Fact%20Sheets/302-3802%33JFRU-VTE-3%20 HEALTHCARE%20PROVIDERS%20FACT%20SHEET.pdf Fact Sheet for Healthcare Patients: https://www.[employer]/Documents/Xpert%20Xp ress%20SARS%20CoV-2/Fact%20Sheets/302-3801%32IFHQ-YEX-7%20PATIENT%20FACT%20SHEET .pdfBLOOD [id number] 17:00:19 Test Item Value Reference Range Interpretation Comments CULTURE (BEAKER) (test No growth in 5 days code = 1095) BLOOD [id number] 17:00:19 Test Item Value Reference Range Interpretation Comments CULTURE (BEAKER) (test No growth in 5 days code = 1095) POC-Glucose [id number] 15:34:27 Test Item Value Reference Range Interpretation Comments POC-Glucose Meter (test 129 mg/dL 70-110 H : TE STED AT [facility] code = 1538) [address] [place] [address], 770 30: Home Worker/Techni aldo ID = [id number] for Lina Logan Lab Interpretation (test Abnormal code = 01935-0) [facility] [id number] 15:34:27 Test Item Value Reference Range Interpretation Comments POC-Glucose Meter (test 129 mg/dL 70-110 H : TE STED AT [facility] code = 1538) [address] [place] [address], 770 30: Home Worker/Techni aldo ID = [id number] for Lina Logan Lab Interpretation (test Abnormal code = 95535-2) [facility] [id number] 15:34:27 Test Item Value Reference Range Interpretation Comments POC-Glucose Meter (test 129 mg/dL 70-110 H : TE STED AT [facility] code = 1538) [address] [facility], 770 30: Home Worker/Techni aldo ID = [id number] for Lina Logan Lab Interpretation (test Abnormal code = 38033-8) [facility] [id number] 15:34:27 Test Item Value Reference Range Interpretation Comments POC-GLUCOSE METER 129 mg/dL 70-110 H : [facility] (BEAKER) (test code = [facility], 1538) [address]: Home Worker/Techni aldo ID = [id number] for Lina Dotson POCT-GLUCOSE [id number] 11:44:07 Test Item Value Reference Range Interpretation Comments POC-GLUCOSE METER 118 mg/dL 70-110 H : [facility] (BEAKER) (test code = [facility], 1538) 986[address]: Home Worker/Techni aldo ID = [id number] for Melida Dotsonlyn POCT-GLUCOSE [id number] 08:00:15 Test Item Value Reference Range Interpretation Comments POC-GLUCOSE METER 114 mg/dL 70-110 H : TESTED A T [facility] 6720 (BEAKER) (test code = [facility], 1538) 89979: Home Worker/Techni aldo ID = [id number] for Melida Dotsonlyn [id number] 05:48:59 Test Item Value Reference Range Interpretation Comments MAGNESIUM (BEAKER) 2.0 mg/dL 1.6-2.6 Specimen slightly (test code = 627) hemolyzed Home Worker ID - PIAYA [id number] 05:48:59 Test Item Value Reference Range Interpretation Comments PHOSPHORUS (BEAKER) 3.9 mg/dL 2.3-4.7 Specimen slightly (test code = 604) hemolyzed Home Worker ID - PIAYA LBASIC METABOLIC [id number] 05:48:59 Test Item Value Reference Range Interpretation Comments SODIUM (BEAKER) 139 meq/L 136-145 (test code = 381) POTASSIUM 4.2 meq/L 3.5-5.1 Specimen slight ly (BEAKER) (test hemolyzed code = 379) CHLORIDE (BEAKER) 106 meq/L 98-107 (test code = 382) CO2 (BEAKER) 25 meq/L 22-29 (test code = 355) BLOOD UREA 20 mg/dL 7-21 NITROGEN (BEAKER) (test code = 354) CREATININE 0.88 mg/dL 0.57-1.25 Specimen slight ly (BEAKER) (test hemolyzed code = 358) GLUCOSE RANDOM 119 mg/dL 70-105 H (BEAKER) (test code = 652) CALCIUM (BEAKER) 8.5 mg/dL 8.4-10.2 (test code = 697) EGFR (BEAKER) 69 Interpretatio n of eGFR (test code = mL/min/1.73 values Stage De scription 1092) sq m Result G1 Amanda l or high >=90 G2 Mildly decreased 60-89 G3a Mildl y to moderately 45-5 9 G3b Moderately to s everely 30-44 G4 Severl y decreased 15-29 G5 Kidney failure <15Reported eGF R is based on the CKD-EPI 2020 equation that d oes not use a race coefficientEsti mated GFR is not as accur ate as Creatinine Celena lety in predicting glom erular filtration rate . Estimated GFR is not appl icable for dialysis patien ts Home Worker ID - PIAYA LCBC (HEMOGRAM ONLY)2022-04-13 04:52:27 Test Item Value Reference Range Interpretation Comments WHITE BLOOD CELL COUNT (BEAKER) 10.2 K/ L 3.5-10.5 (test code = 775) RED BLOOD CELL COUNT (BEAKER) 2.58 M/ L 3.93-5.22 L (test code = 761) HEMOGLOBIN (BEAKER) (test code = 7.5 GM/DL 11.2-15.7 L 410) HEMATOCRIT (BEAKER) (test code = 23.5 % 34.1-44.9 L 411) MEAN CORPUSCULAR VOLUME (BEAKER) 91.1 fL 79.4-94.8 (test code = 753) MEAN CORPUSCULAR HEMOGLOBIN 29.1 pg 25.6-32.2 (BEAKER) (test code = 751) MEAN CORPUSCULAR HEMOGLOBIN CONC 31.9 GM/DL 32.2-35.5 L (BEAKER) (test code = 752) RED CELL DISTRIBUTION WIDTH 14.4 % 11.7-14.4 (BEAKER) (test code = 412) PLATELET COUNT (BEAKER) (test 299 K/CU MM 150-450 code = 756) MEAN PLATELET VOLUME (BEAKER) 9.9 fL 9.4-12.3 (test code = 754) NUCLEATED RED BLOOD CELLS 0 /100 WBC 0-0 (BEAKER) (test code = 413) POCT-GLUCOSE [id number] 21:03:16 Test Item Value Reference Range Interpretation Comments POC-GLUCOSE METER 111 mg/dL 70-110 H : TESTED A T [facility] 6720 (BEAKER) (test code = [facility], 1538) 37117: Home Worker/Techni aldo ID = [id number] for Ch avez, Sivan POCT-GLUCOSE [id number] 15:53:40 Test Item Value Reference Range Interpretation Comments POC-GLUCOSE METER 133 mg/dL 70-110 H : TESTED A T [facility] 6720 (BEAKER) (test code [facility], = 1538) 72327: Home Worker/Techni aldo ID = [id number] for LEWI S -Claudio, LATAND GUERRERO POCT-GLUCOSE [id number] 12:54:17 Test Item Value Reference Range Interpretation Comments POC-GLUCOSE METER 130 mg/dL 70-110 H : TESTED A T [facility] 6720 (BEAKER) (test code [facility], = 1538) 45311: Home Worker/Techni aldo ID = [id number] for LEWI S -Claudio, LATAND GUERRERO POCT-GLUCOSE [id number] 08:18:20 Test Item Value Reference Range Interpretation Comments POC-GLUCOSE METER 116 mg/dL 70-110 H : TESTED A T [facility] 6720 (BEAKER) (test code [facility], = 1538) 07433: Home Worker/Techni aldo ID = [id number] for LEWI S -Claudio, LATAND GUERRERO BASIC METABOLIC [id number] 04:23:08 Test Item Value Reference Range Interpretation Comments SODIUM (BEAKER) 140 meq/L 136-145 (test code = 381) POTASSIUM 3.6 meq/L 3.5-5.1 (BEAKER) (test code = 379) CHLORIDE (BEAKER) 106 meq/L 98-107 (test code = 382) CO2 (BEAKER) 27 meq/L 22-29 (test code = 355) BLOOD UREA 18 mg/dL 7-21 NITROGEN (BEAKER) (test code = 354) CREATININE 0.95 mg/dL 0.57-1.25 (BEAKER) (test code = 358) GLUCOSE RANDOM 95 mg/dL 70-105 (BEAKER) (test code = 652) CALCIUM (BEAKER) 8.2 mg/dL 8.4-10.2 L (test code = 697) EGFR (BEAKER) 63 Interpretatio n of eGFR (test code = mL/min/1.73 values Stage De scription 1092) sq m Result G1 Amanda l or high >=90 G2 Mildly decreased 60-89 G3a Mildl y to moderately 45-5 9 G3b Moderately to s everely 30-44 G4 Severl y decreased 15-29 G5 Kidney failure <15Reported eGF R is based on the CKD-EPI 2020 equation that d oes not use a race coefficientEsti mated GFR is not as accur ate as Creatinine Celena davidson in predicting glom erular filtration rate . Estimated GFR is not appl icable for dialysis patien ts Home Worker ID - ELVIN [id number] 04:23:08 Test Item Value Reference Range Interpretation Comments MAGNESIUM (BEAKER) (test code = 2.0 mg/dL 1.6-2.6 627) Home Worker ID - ELVIN [id number] 04:23:08 Test Item Value Reference Range Interpretation Comments PHOSPHORUS (BEAKER) (test code = 2.6 mg/dL 2.3-4.7 604) Home Worker ID Carlo ELVIN WCBC (HEMOGRAM ONLY)2022-04-12 04:05:05 Test Item Value Reference Range Interpretation Comments WHITE BLOOD CELL COUNT (BEAKER) 10.2 K/ L 3.5-10.5 (test code = 775) RED BLOOD CELL COUNT (BEAKER) 2.76 M/ L 3.93-5.22 L (test code = 761) HEMOGLOBIN (BEAKER) (test code = 7.9 GM/DL 11.2-15.7 L 410) HEMATOCRIT (BEAKER) (test code = 24.7 % 34.1-44.9 L 411) MEAN CORPUSCULAR VOLUME (BEAKER) 89.5 fL 79.4-94.8 (test code = 753) MEAN CORPUSCULAR HEMOGLOBIN 28.6 pg 25.6-32.2 (BEAKER) (test code = 751) MEAN CORPUSCULAR HEMOGLOBIN CONC 32.0 GM/DL 32.2-35.5 L (BEAKER) (test code = 752) RED CELL DISTRIBUTION WIDTH 14.3 % 11.7-14.4 (BEAKER) (test code = 412) PLATELET COUNT (BEAKER) (test 273 K/CU MM 150-450 code = 756) MEAN PLATELET VOLUME (BEAKER) 9.3 fL 9.4-12.3 L (test code = 754) NUCLEATED RED BLOOD CELLS 0 /100 WBC 0-0 (BEAKER) (test code = 413) POCT-GLUCOSE [id number] 20:52:48 Test Item Value Reference Range Interpretation Comments POC-GLUCOSE METER 151 mg/dL 70-110 H : TESTED A T [facility] 6720 (BEAKER) (test code = [facility], 153) [address]: Home Worker/Techni aldo ID = [id number] for SLIM VICTOR POCT-GLUCOSE [id number] 16:09:14 Test Item Value Reference Range Interpretation Comments POC-GLUCOSE METER 130 mg/dL 70-110 H : TESTED A T [facility] 6720 (BEAKER) (test code = [facility], 153) [address]: Home Worker/Techni aldo ID = [id number] for Ruslan Powell POCT-GLUCOSE [id number] 11:25:47 Test Item Value Reference Range Interpretation Comments POC-GLUCOSE METER 99 mg/dL 70-110 : TESTED A T [facility] 6720 (BEAKER) (test code = [facility], 153) [address]: Home Worker/Techni aldo ID = [id number] for Ruslan Magana Urine [id number] 08:48:43 Test Item Value Reference Range Interpretation Comments Result (test code = 6463-4) [facility] [id number] 08:48:43 Test Item Value Reference Range Interpretation Comments Result (test code = 6463-4) No growth [facility] [id number] 08:48:43 Test Item Value Reference Range Interpretation Comments Result (test code = 6463-4) No growth [facility] [id number] 08:48:43 Test Item Value Reference Range Interpretation Comments CULTURE (BEAKER) (test code = 1095) No growth POCT-GLUCOSE [id number] 07:40:08 Test Item Value Reference Range Interpretation Comments POC-GLUCOSE METER 96 mg/dL 70-110 : TESTED A T [facility] (BEAKER) (test code = [place], 1538) [address]: Home Worker/Techni aldo ID = [id number] for Ruslan Magana [id number] 06:30:09 Test Item Value Reference Range Interpretation Comments PHOSPHORUS (BEAKER) (test code = 2.2 mg/dL 2.3-4.7 L 604) Home Worker ID - MIMI GBASIC METABOLIC [id number] 06:30:08 Test Item Value Reference Range Interpretation Comments SODIUM (BEAKER) 140 meq/L 136-145 (test code = 381) POTASSIUM 3.5 meq/L 3.5-5.1 (BEAKER) (test code = 379) CHLORIDE (BEAKER) 105 meq/L 98-107 (test code = 382) CO2 (BEAKER) 30 meq/L 22-29 H (test code = 355) BLOOD UREA 14 mg/dL 7-21 NITROGEN (BEAKER) (test code = 354) CREATININE 0.84 mg/dL 0.57-1.25 (BEAKER) (test code = 358) GLUCOSE RANDOM 90 mg/dL 70-105 (BEAKER) (test code = 652) CALCIUM (BEAKER) 8.0 mg/dL 8.4-10.2 L (test code = 697) EGFR (BEAKER) 73 Interpretati on of eGFR (test code = mL/min/1.73 values Stage De scription 1092) sq m Result G1 Amanda l or high >=90 G2 Mildly decreased 60-89 G3a Mildl y to moderately 45-5 9 G3b Moderately to s everely 30-44 G4 Severl y decreased 15-29 G5 Kidney failure <15Reported eGF R is based on the CKD-EPI 2020 equation that d oes not use a race coefficientEsti mated GFR is not as accur ate as Creatinine Celena davidson in predicting glom erular filtration rate . Estimated GFR is not appl icable for dialysis patien ts Home Worker ID - MIMI [id number] 06:30:08 Test Item Value Reference Range Interpretation Comments MAGNESIUM (BEAKER) (test code = 2.1 mg/dL 1.6-2.6 627) Home Worker ID - MIMI GCBC (HEMOGRAM ONLY)2022-04-11 05:58:00 Test Item Value Reference Range Interpretation Comments WHITE BLOOD CELL COUNT (BEAKER) 9.4 K/ L 3.5-10.5 (test code = 775) RED BLOOD CELL COUNT (BEAKER) 2.70 M/ L 3.93-5.22 L (test code = 761) HEMOGLOBIN (BEAKER) (test code = 7.8 GM/DL 11.2-15.7 L 410) HEMATOCRIT (BEAKER) (test code = 24.3 % 34.1-44.9 L 411) MEAN CORPUSCULAR VOLUME (BEAKER) 90.0 fL 79.4-94.8 (test code = 753) MEAN CORPUSCULAR HEMOGLOBIN 28.9 pg 25.6-32.2 (BEAKER) (test code = 751) MEAN CORPUSCULAR HEMOGLOBIN CONC 32.1 GM/DL 32.2-35.5 L (BEAKER) (test code = 752) RED CELL DISTRIBUTION WIDTH 13.9 % 11.7-14.4 (BEAKER) (test code = 412) PLATELET COUNT (BEAKER) (test 238 K/CU MM 150-450 code = 756) MEAN PLATELET VOLUME (BEAKER) 10.0 fL 9.4-12.3 (test code = 754) NUCLEATED RED BLOOD CELLS 0 /100 WBC 0-0 (BEAKER) (test code = 413) POCT-GLUCOSE [id number] 21:31:00 Test Item Value Reference Range Interpretation Comments POC-GLUCOSE METER 117 mg/dL 70-110 H : TESTED A T [facility] 6720 (BEAKER) (test code = [facility], 1538) 62208: Home Worker/Techni aldo ID = [id number] for SLIM VICTOR POCT-GLUCOSE [id number] 16:59:44 Test Item Value Reference Range Interpretation Comments POC-GLUCOSE METER 110 mg/dL 70-110 : TESTED A T [facility] 6720 (BEAKER) (test code = [facility], 1538) 04584: Home Worker/Techni aldo ID = [id number] for RA MOS, DARLINE POCT-GLUCOSE [id number] 11:22:31 Test Item Value Reference Range Interpretation Comments POC-GLUCOSE METER 156 mg/dL 70-110 H : TESTED A T [facility] 6720 (BEAKER) (test code = [facility], 1538) 10385: Home Worker/Techni aldo ID = [id number] for RA MOS, DARLINE POCT-GLUCOSE [id number] 07:51:14 Test Item Value Reference Range Interpretation Comments POC-GLUCOSE METER 113 mg/dL 70-110 H : TESTED A T [facility] 6720 (BEAKER) (test code = [facility], 1538) 43283: Home Worker/Techni aldo ID = [id number] for RA MOS, DARLINE [id number] 06:43:13 Test Item Value Reference Range Interpretation Comments MAGNESIUM (BEAKER) 2.0 mg/dL 1.6-2.6 Specimen slightly (test code = 627) hemolyzed Home Worker ID - HUMBLE [id number] 06:43:13 Test Item Value Reference Range Interpretation Comments PHOSPHORUS (BEAKER) 2.1 mg/dL 2.3-4.7 L Specimen slightly (test code = 604) hemolyzed Home Worker ID - HUMBLE MBASIC METABOLIC [id number] 06:43:13 Test Item Value Reference Range Interpretation Comments SODIUM (BEAKER) 136 meq/L 136-145 (test code = 381) POTASSIUM 3.9 meq/L 3.5-5.1 Specimen slight ly (BEAKER) (test hemolyzed code = 379) CHLORIDE (BEAKER) 102 meq/L 98-107 (test code = 382) CO2 (BEAKER) 24 meq/L 22-29 (test code = 355) BLOOD UREA 14 mg/dL 7-21 NITROGEN (BEAKER) (test code = 354) CREATININE 0.84 mg/dL 0.57-1.25 Specimen slight ly (BEAKER) (test hemolyzed code = 358) GLUCOSE RANDOM 108 mg/dL 70-105 H (BEAKER) (test code = 652) CALCIUM (BEAKER) 8.3 mg/dL 8.4-10.2 L (test code = 697) EGFR (BEAKER) 73 Interpretatio n of eGFR (test code = mL/min/1.73 values Stage De scription 1092) sq m Result G1 Amanda l or high >=90 G2 Mildly decreased 60-89 G3a Mildl y to moderately 45-5 9 G3b Moderately to s everely 30-44 G4 Severl y decreased 15-29 G5 Kidney failure <15Reported eGF R is based on the CKD-EPI 2020 equation that d oes not use a race coefficientEsti mated GFR is not as accur ate as Creatinine Celena lety in predicting glom erular filtration rate . Estimated GFR is not appl icable for dialysis patien ts Home Worker ID - HUMBLE MCBC (HEMOGRAM ONLY)2022-04-10 06:18:00 Test Item Value Reference Range Interpretation Comments WHITE BLOOD CELL COUNT (BEAKER) 13.8 K/ L 3.5-10.5 H (test code = 775) RED BLOOD CELL COUNT (BEAKER) 2.91 M/ L 3.93-5.22 L (test code = 761) HEMOGLOBIN (BEAKER) (test code = 8.3 GM/DL 11.2-15.7 L 410) HEMATOCRIT (BEAKER) (test code = 25.9 % 34.1-44.9 L 411) MEAN CORPUSCULAR VOLUME (BEAKER) 89.0 fL 79.4-94.8 (test code = 753) MEAN CORPUSCULAR HEMOGLOBIN 28.5 pg 25.6-32.2 (BEAKER) (test code = 751) MEAN CORPUSCULAR HEMOGLOBIN CONC 32.0 GM/DL 32.2-35.5 L (BEAKER) (test code = 752) RED CELL DISTRIBUTION WIDTH 13.4 % 11.7-14.4 (BEAKER) (test code = 412) PLATELET COUNT (BEAKER) (test 202 K/CU MM 150-450 code = 756) MEAN PLATELET VOLUME (BEAKER) 10.4 fL 9.4-12.3 (test code = 754) NUCLEATED RED BLOOD CELLS 0 /100 WBC 0-0 (BEAKER) (test code = 413) Prepare Leuko-Red [id number] 23:54:00 Test Item Value Reference Range Interpretation Comments CROSSMATCH (test code = 2264) COMPATIBLE Unit ABO (test code = O Pos 5638932) UNIT NUMBER (test code = [id number] 934-0) Status (test code = 3896160) TX_TIMEINCHART Blood Bank Product (test code RED BLOOD CELLS = 2263) PRODUCT CODE (test code = O5632E24 933-2) [facility] [id number] 23:54:00 Test Item Value Reference Range Interpretation Comments CROSSMATCH (test code = 2264) COMPATIBLE Unit ABO (test code = O Pos 5259385) UNIT NUMBER (test code = [id number] 934-0) Status (test code = 1190089) TX_TIMEINCHART Blood Bank Product (test code RED BLOOD CELLS = 2263) PRODUCT CODE (test code = X1648G35 933-2) [facility] [id number] 23:54:00 Test Item Value Reference Range Interpretation Comments CROSSMATCH (test code = 2264) COMPATIBLE Unit ABO (test code = O Pos 3343237) UNIT NUMBER (test code = [id number] 934-0) Status (test code = 7648640) TX_TIMEINCHART Blood Bank Product (test code RED BLOOD CELLS = 2263) PRODUCT CODE (test code = G1853R96 933-2) [facility] [id number] 23:08:16 Test Item Value Reference Range Interpretation Comments POC-GLUCOSE METER 119 mg/dL 70-110 H : TESTED A T [facility] 6720 (BEAKER) (test code = [place], 1538) 00231: Home Worker/Techni aldo ID = [id number] for Paris Lipscomb POCT-GLUCOSE [id number] 17:18:13 Test Item Value Reference Range Interpretation Comments POC-GLUCOSE METER 172 mg/dL 70-110 H : TESTED A T [facility] 6720 (BEAKER) (test code = [place] [facility], 1538) 90499: Home Worker/Techni aldo ID = [id number] for WINNIE RAMÍREZ CBC (HEMOGRAM ONLY)2022-04-09 16:39:21 Test Item Value Reference Range Interpretation Comments WHITE BLOOD CELL COUNT (BEAKER) 17.8 K/ L 3.5-10.5 H (test code = 775) RED BLOOD CELL COUNT (BEAKER) 2.83 M/ L 3.93-5.22 L (test code = 761) HEMOGLOBIN (BEAKER) (test code = 8.0 GM/DL 11.2-15.7 L 410) HEMATOCRIT (BEAKER) (test code = 25.3 % 34.1-44.9 L 411) MEAN CORPUSCULAR VOLUME (BEAKER) 89.4 fL 79.4-94.8 (test code = 753) MEAN CORPUSCULAR HEMOGLOBIN 28.3 pg 25.6-32.2 (BEAKER) (test code = 751) MEAN CORPUSCULAR HEMOGLOBIN CONC 31.6 GM/DL 32.2-35.5 L (BEAKER) (test code = 752) RED CELL DISTRIBUTION WIDTH 13.3 % 11.7-14.4 (BEAKER) (test code = 412) PLATELET COUNT (BEAKER) (test 187 K/CU MM 150-450 code = 756) MEAN PLATELET VOLUME (BEAKER) 10.5 fL 9.4-12.3 (test code = 754) NUCLEATED RED BLOOD CELLS 0 /100 WBC 0-0 (BEAKER) (test code = 413) POCT-GLUCOSE [id number] 11:54:11 Test Item Value Reference Range Interpretation Comments POC-GLUCOSE METER 182 mg/dL 70-110 H : TESTED A T [facility] 6720 (BEAKER) (test code = [place] [facility], 1538) 13230: Home Worker/Techni aldo ID = [id number] for WINNIE RAMÍREZ POCT-GLUCOSE [id number] 07:49:48 Test Item Value Reference Range Interpretation Comments POC-GLUCOSE METER 139 mg/dL 70-110 H : TESTED A T [facility]20 (BEAKER) (test code = [place], 1538) 34416: Home Worker/Techni aldo ID = [id number] for DE NNIS, WINNIE Venous doppler legs [id number] 07:38:03Ejection FractionSLEH ECHO HEARTLAB MKCKESSON [facility] bilateral 2022-04-09 07:38:03Ejection FractionSLEH ECHO HEARTLAB MKCKESSON [facility] legs [id number] 07:38:03Ejection FractionSLEH ECHO HEARTLAB MKCKESSON [facility] Center[facility] 2022-04-09 06:41:32 Test Item Value Reference Range Interpretation Comments PHOSPHORUS (BEAKER) (test code = 2.5 mg/dL 2.3-4.7 604) Home Worker ID - ELVIN WBASIC METABOLIC [id number] 06:41:31 Test Item Value Reference Range Interpretation Comments SODIUM (BEAKER) 136 meq/L 136-145 (test code = 381) POTASSIUM 3.6 meq/L 3.5-5.1 (BEAKER) (test code = 379) CHLORIDE (BEAKER) 100 meq/L 98-107 (test code = 382) CO2 (BEAKER) 30 meq/L 22-29 H (test code = 355) BLOOD UREA 16 mg/dL 7-21 NITROGEN (BEAKER) (test code = 354) CREATININE 0.99 mg/dL 0.57-1.25 (BEAKER) (test code = 358) GLUCOSE RANDOM 132 mg/dL 70-105 H (BEAKER) (test code = 652) CALCIUM (BEAKER) 8.8 mg/dL 8.4-10.2 (test code = 697) EGFR (BEAKER) 60 Interpretatio n of eGFR (test code = mL/min/1.73 values Stage De scription 1092) sq m Result G1 Amanda l or high >=90 G2 Mildly decreased 60-89 G3a Mildl y to moderately 45-5 9 G3b Moderately to s everely 30-44 G4 Severl y decreased 15-29 G5 Kidney failure <15Reported eGF R is based on the CKD-EPI 2021 equation that d oes not use a race coefficientEsti mated GFR is not as accur ate as Creatinine Celena lety in predicting glom erular filtration rate . Estimated GFR is not appl icable for dialysis patien ts Home Worker ID - ELVIN [id number] 06:41:31 Test Item Value Reference Range Interpretation Comments MAGNESIUM (BEAKER) (test code = 4.3 mg/dL 1.6-2.6 H 627) Home Worker ID - ELVIN WCBC W/PLT COUNT & AUTO [id number] 06:12:33 Test Item Value Reference Range Interpretation Comments WHITE BLOOD CELL COUNT (BEAKER) 15.6 K/ L 3.5-10.5 H (test code = 775) RED BLOOD CELL COUNT (BEAKER) 2.74 M/ L 3.93-5.22 L (test code = 761) HEMOGLOBIN (BEAKER) (test code = 7.8 GM/DL 11.2-15.7 L 410) HEMATOCRIT (BEAKER) (test code = 24.6 % 34.1-44.9 L 411) MEAN CORPUSCULAR VOLUME (BEAKER) 89.8 fL 79.4-94.8 (test code = 753) MEAN CORPUSCULAR HEMOGLOBIN 28.5 pg 25.6-32.2 (BEAKER) (test code = 751) MEAN CORPUSCULAR HEMOGLOBIN CONC 31.7 GM/DL 32.2-35.5 L (BEAKER) (test code = 752) RED CELL DISTRIBUTION WIDTH 13.5 % 11.7-14.4 (BEAKER) (test code = 412) PLATELET COUNT (BEAKER) (test 173 K/CU MM 150-450 code = 756) MEAN PLATELET VOLUME (BEAKER) 10.5 fL 9.4-12.3 (test code = 754) NUCLEATED RED BLOOD CELLS 0 /100 WBC 0-0 (BEAKER) (test code = 413) NEUTROPHILS RELATIVE PERCENT 84 % (BEAKER) (test code = 429) LYMPHOCYTES RELATIVE PERCENT 7 % (BEAKER) (test code = 430) MONOCYTES RELATIVE PERCENT 7 % (BEAKER) (test code = 431) EOSINOPHILS RELATIVE PERCENT 1 % (BEAKER) (test code = 432) BASOPHILS RELATIVE PERCENT 0 % (BEAKER) (test code = 437) NEUTROPHILS ABSOLUTE COUNT 13.19 K/ L 1.56-6.13 H (BEAKER) (test code = 670) LYMPHOCYTES ABSOLUTE COUNT 1.10 K/ L 1.18-3.74 L (BEAKER) (test code = 414) MONOCYTES ABSOLUTE COUNT (BEAKER) 1.15 K/ L 0.24-0.36 H (test code = 415) EOSINOPHILS ABSOLUTE COUNT 0.09 K/ L 0.04-0.36 (BEAKER) (test code = 416) BASOPHILS ABSOLUTE COUNT (BEAKER) 0.01 K/ L 0.01-0.08 (test code = 417) IMMATURE GRANULOCYTES-RELATIVE 1 % 0-1 PERCENT (BEAKER) (test code = 2801) POCT-GLUCOSE [id number] 00:19:02 Test Item Value Reference Range Interpretation Comments POC-GLUCOSE METER 144 mg/dL 70-110 H : TESTED [place] T [facility] 6720 (BEAKER) (test code = [place], 1538) 148[address]: Home Worker/Techni aldo ID = [id number] for Sp Ashwin morales RAD, PELVIS, 1 OR 2 [id number] 23:03:00Reason for exam:->postop R hip hemion floor as not done in pacuShould this be performed at the bedside?->Yes [facility] CENTER[facility]: [facility]IAY LUNA : 1950 Sex: FFINAL REPORT RAD, PELVIS, 1 OR 2 VIEWS HISTORY: postop R hip nathaniel COMPARISON: 04/07/2022 pelvic radiograph IMPRESSION: Hyperattenuation of the musculature in the anterior compartment of the proximal right thigh, possibly cement, was not seen on 04/07/2022. No acute fracture or malalignment. Right hip arthroplasty, appears well-seated on these 2 frontal radiographs Signed: Ashely Peraltaeport Verified Date/Time: 04/08/2022 23:03:37 BASIC METABOLIC [id number] 22:31:44 Test Item Value Reference Range Interpretation Comments SODIUM (BEAKER) 135 meq/L 136-145 L (test code = 381) POTASSIUM 4.0 meq/L 3.5-5.1 (BEAKER) (test code = 379) CHLORIDE (BEAKER) 102 meq/L 98-107 (test code = 382) CO2 (BEAKER) 23 meq/L 22-29 (test code = 355) BLOOD UREA 18 mg/dL 7-21 NITROGEN (BEAKER) (test code = 354) CREATININE 1.20 mg/dL 0.57-1.25 (BEAKER) (test code = 358) GLUCOSE RANDOM 148 mg/dL 70-105 H (BEAKER) (test code = 652) CALCIUM (BEAKER) 7.8 mg/dL 8.4-10.2 L (test code = 697) EGFR (BEAKER) 48 Interpretatio n of eGFR (test code = mL/min/1.73 values Stage De scription 1092) sq m Result G1 Amanda l or high >=90 G2 Mildly decreased 60-89 G3a Mildl y to moderately 45-5 9 G3b Moderately to s everely 30-44 G4 Severl y decreased 15-29 G5 Kidney failure <15Reported eGF R is based on the CKD-EPI 2020 equation that d oes not use a race coefficientEsti mated GFR is not as accur ate as Creatinine Celena davidson in predicting glom erular filtration rate . Estimated GFR is not appl icable for dialysis patien ts Home Worker ID - [id number] 22:31:14 Test Item Value Reference Range Interpretation Comments MAGNESIUM (BEAKER) (test code = 1.6 mg/dL 1.6-2.6 627) Home Worker ID - [id number] 22:31:14 Test Item Value Reference Range Interpretation Comments PHOSPHORUS (BEAKER) (test code = 2.0 mg/dL 2.3-4.7 L 604) Home Worker ID - BSLACTIC ACID, [id number] 22:23:33 Test Item Value Reference Range Interpretation Comments LACTATE BLOOD VENOUS (2) (BEAKER) 1.96 mmol/L 0.50-2.20 (test code = 2872) Home Worker ID - BSCBC (HEMOGRAM ONLY)2022-04-08 22:07:28 Test Item Value Reference Range Interpretation Comments WHITE BLOOD CELL COUNT (BEAKER) 15.0 K/ L 3.5-10.5 H (test code = 775) RED BLOOD CELL COUNT (BEAKER) 2.23 M/ L 3.93-5.22 L (test code = 761) HEMOGLOBIN (BEAKER) (test code = 6.4 GM/DL 11.2-15.7 L 410) HEMATOCRIT (BEAKER) (test code = 20.0 % 34.1-44.9 L 411) MEAN CORPUSCULAR VOLUME (BEAKER) 89.7 fL 79.4-94.8 (test code = 753) MEAN CORPUSCULAR HEMOGLOBIN 28.7 pg 25.6-32.2 (BEAKER) (test code = 751) MEAN CORPUSCULAR HEMOGLOBIN CONC 32.0 GM/DL 32.2-35.5 L (BEAKER) (test code = 752) RED CELL DISTRIBUTION WIDTH 13.6 % 11.7-14.4 (BEAKER) (test code = 412) PLATELET COUNT (BEAKER) (test 178 K/CU MM 150-450 code = 756) MEAN PLATELET VOLUME (BEAKER) 10.3 fL 9.4-12.3 (test code = 754) NUCLEATED RED BLOOD CELLS 0 /100 WBC 0-0 (BEAKER) (test code = 413) CBC W/PLT COUNT & AUTO [id number] 18:40:26 Test Item Value Reference Range Interpretation Comments WHITE BLOOD CELL COUNT 14.7 K/ L 3.5-10.5 H (BEAKER) (test code = 775) RED BLOOD CELL COUNT 2.20 M/ L 3.93-5.22 L (BEAKER) (test code = 761) HEMOGLOBIN (BEAKER) 6.2 GM/DL 11.2-15.7 L Discorda nt results (test code = 410) compared t o previous results. Clinic al correlation required. HEMATOCRIT (BEAKER) 20.2 % 34.1-44.9 L (test code = 411) MEAN CORPUSCULAR 91.8 fL 79.4-94.8 VOLUME (BEAKER) (test code = 753) MEAN CORPUSCULAR 28.2 pg 25.6-32.2 HEMOGLOBIN (BEAKER) (test code = 751) MEAN CORPUSCULAR 30.7 GM/DL 32.2-35.5 L HEMOGLOBIN CONC (BEAKER) (test code = 752) RED CELL DISTRIBUTION 13.6 % 11.7-14.4 WIDTH (BEAKER) (test code = 412) PLATELET COUNT 185 K/CU MM 150-450 (BEAKER) (test code = 756) MEAN PLATELET VOLUME 10.7 fL 9.4-12.3 (BEAKER) (test code = 754) NUCLEATED RED BLOOD 0 /100 WBC 0-0 CELLS (BEAKER) (test code = 413) NEUTROPHILS RELATIVE 83 % PERCENT (BEAKER) (test code = 429) LYMPHOCYTES RELATIVE 8 % PERCENT (BEAKER) (test code = 430) MONOCYTES RELATIVE 9 % PERCENT (BEAKER) (test code = 431) EOSINOPHILS RELATIVE 0 % PERCENT (BEAKER) (test code = 432) BASOPHILS RELATIVE 0 % PERCENT (BEAKER) (test code = 437) NEUTROPHILS ABSOLUTE 12.20 K/ L 1.56-6.13 H COUNT (BEAKER) (test code = 670) LYMPHOCYTES ABSOLUTE 1.11 K/ L 1.18-3.74 L COUNT (BEAKER) (test code = 414) MONOCYTES ABSOLUTE 1.26 K/ L 0.24-0.36 H COUNT (BEAKER) (test code = 415) EOSINOPHILS ABSOLUTE 0.01 K/ L 0.04-0.36 L COUNT (BEAKER) (test code = 416) BASOPHILS ABSOLUTE 0.01 K/ L 0.01-0.08 COUNT (BEAKER) (test code = 417) IMMATURE 1 % 0-1 GRANULOCYTES-RELATIVE PERCENT (BEAKER) (test code = 2801) LACTIC ACID, [id number] 16:35:30 Test Item Value Reference Range Interpretation Comments LACTATE BLOOD VENOUS (2) (BEAKER) 3.04 mmol/L 0.50-2.20 H (test code = 8463) Home Worker ID - BSBASIC METABOLIC [id number] 16:24:06 Test Item Value Reference Range Interpretation Comments SODIUM (BEAKER) 136 meq/L 136-145 (test code = 381) POTASSIUM 4.0 meq/L 3.5-5.1 (BEAKER) (test code = 379) CHLORIDE (BEAKER) 105 meq/L 98-107 (test code = 382) CO2 (BEAKER) 26 meq/L 22-29 (test code = 355) BLOOD UREA 16 mg/dL 7-21 NITROGEN (BEAKER) (test code = 354) CREATININE 1.19 mg/dL 0.57-1.25 (BEAKER) (test code = 358) GLUCOSE RANDOM 206 mg/dL 70-105 H (BEAKER) (test code = 652) CALCIUM (BEAKER) 7.4 mg/dL 8.4-10.2 L (test code = 697) EGFR (BEAKER) 48 Interpretatio n of eGFR (test code = mL/min/1.73 values Stage De scription 1092) sq m Result G1 Norm al or high >=90 G2 Mildly decreased 60-89 G3a Mildl y to moderately 45-5 9 G3b Moderately to s everely 30-44 G4 Severl y decreased 15-29 G5 Kidney failure <15Reported eGF R is based on the CKD-EPI 2020 equation that d oes not use a race coefficientEsti mated GFR is not as accur ate as Creatinine Celena lety in predicting glom erular filtration rate . Estimated GFR is not appl icable for dialysis patien ts Home Worker ID - ADMINRAD, CHEST, 1 VIEW, NON [id number] 16:12:00Reason for exam:->dyspneaShould this be performed at the bedside?->Yes [facility] : 1950 Sex: FFINAL REPORT CLINICAL HISTORY: dyspnea TECHNIQUE: 1 view of the chest. COMPARISON: None IMPRESSION: There are no focal infiltrates or effusions. The cardiomediastinal silhouette is magnified by technique. The osseous structures appear intact. Signed: Derrick Ignacio Verified Date/Time: 04/08/2022 16:12:21 Reading Location: [facility] Radiology Reading Room POCT-GLUCOSE METER 2022-04-08 15:31:41 Test Item Value Reference Range Interpretation Comments POC-GLUCOSE METER 208 mg/dL 70-110 H : TESTED A T [facility] 6720 (Kinesio CaptureAKER) (test code = [facility] [employer]New [place] [facility], 1538) 67912: Home Worker/Techni aldo ID = [id number] for Ma ster, Evangelina POCT-GLUCOSE [id number] 11:42:48 Test Item Value Reference Range Interpretation Comments POC-GLUCOSE METER 240 mg/dL 70-110 H : TESTED A T [facility] 6720 (BEAKER) (test code = [place] [employer] [facility], 1538) 82717: Home Worker/Techni aldo ID = [id number] for Ma ster, Evangelina CT, EXTREMITY, LOWER WITHOUT CONTRAST, [id number] 08:41:00Unlisted Reason for Exam - Click Yes and Enter Reason Below->Yesevaluate for fractureUnlisted Reason for Exam->evaluate for fracture with cement extravasationPlease specify:->Femur [facility] : 1950 Sex: FFINAL REPORT CT of the right thigh without contrast History: Unlisted Reason for Examevaluate for fracture with cement extravasation Comparisons: Radiograph dated April 07, 2022 Technique: CT of the right thigh was performed without contrast. Axial images were generated as were multiplanar reformatted images in the coronal and sagittal planes. This exam was performed according to our departmental dose optimization program which includes automated exposure control, adjustment of the mA and/or kV according to patient's size and/or use of iterative reconstructive technique. Findings: Patient status post right hip hemiarthroplasty. Alignment is near-anatomic. Allowing for limitations related to hardware artifact, no acute fracture is identified. An area of hyperdensity is noted anterolateral to the proximal to mid right femoral shaft, measuring approximately 3.7 x 2 x 14 cm, primarily located in the vastus intermedius muscle, with a somewhat feathery appearance. A few small foci of intramuscular gas anterior to the femoral shaft is nonspecific given recent surgery. No discrete drainablefluid collection, or hematoma is identified. Subcutaneous edema/fluid, along with a few small foci of air are also seen lateral to the right hip. Partially imaged pelvic contents are without worrisome findings. Bladder is decompressed with Alejandro catheter. There is a small right-sided knee joint effusion. Mild right knee osteoarthritis. IMPRESSION: Status post right hip hemiarthroplasty. Allowing for hardware artifacts, no acute fracture is seen. Hyperdensity adjacent to the proximal to mid right femoral shaft may reflect extravasated cement, versus heterotopic calcification/ossification due to remote injury. Comparison with preoperative radiograph, if available, would be helpful for making that distinction. Signed: Jj Arrington Verified Date/Time: 04/08/2022 08:41:48 Reading Location: [address] Ortho Consult Reading Room -GLUCOSE [id number] 17:39:33 Test Item Value Reference Range Interpretation Comments POC-GLUCOSE METER 102 mg/dL 70-110 : TESTED A T [facility] 6720 (EndoShape) (test code = [place], 1538) [address]: Home Worker/Techni aldo ID = [id number] for Joana Victor RAD, PELVIS, 1 OR 2 [id number] 16:39:00Reason for exam:->RIGHT HIP ARTHROPLASTYALMSHOUSE SAN FRANC[facility]COName: RIYA LUNA : 1950 Sex: FFINAL REPORT Pelvis History provided: Right hip arthroplasty Components of right hip arthroplasty are in place. Left hip intact. Signed: Matt [facility] Verified Date/Time: 6:39:06 Reading Location: [facility] Imaging Reading Room [place] [address] 1.310.12 POCT-GLUCOSE [id number] 10:01:19 Test Item Value Reference Range Interpretation Comments POC-GLUCOSE METER 111 mg/dL 70-110 H : TESTED A T [facility] 6720 (BEAKER) (test code = [place] [facility], 1538) 12[address]: Home Worker/Techni aldo ID = [id number] for IMELDA JC CBC W/PLT COUNT & AUTO [id number] 07:15:22 Test Item Value Reference Range Interpretation Comments WHITE BLOOD CELL COUNT (BEAKER) 10.8 K/ L 3.5-10.5 H (test code = 775) RED BLOOD CELL COUNT (BEAKER) 4.25 M/ L 3.93-5.22 (test code = 761) HEMOGLOBIN (BEAKER) (test code = 12.1 GM/DL 11.2-15.7 410) HEMATOCRIT (BEAKER) (test code = 40.2 % 34.1-44.9 411) MEAN CORPUSCULAR VOLUME (BEAKER) 94.6 fL 79.4-94.8 (test code = 753) MEAN CORPUSCULAR HEMOGLOBIN 28.5 pg 25.6-32.2 (BEAKER) (test code = 751) MEAN CORPUSCULAR HEMOGLOBIN CONC 30.1 GM/DL 32.2-35.5 L (BEAKER) (test code = 752) RED CELL DISTRIBUTION WIDTH 13.4 % 11.7-14.4 (BEAKER) (test code = 412) PLATELET COUNT (BEAKER) (test 227 K/CU MM 150-450 code = 756) MEAN PLATELET VOLUME (BEAKER) 10.1 fL 9.4-12.3 (test code = 754) NUCLEATED RED BLOOD CELLS 0 /100 WBC 0-0 (BEAKER) (test code = 413) NEUTROPHILS RELATIVE PERCENT 71 % (BEAKER) (test code = 429) LYMPHOCYTES RELATIVE PERCENT 19 % (BEAKER) (test code = 430) MONOCYTES RELATIVE PERCENT 9 % (BEAKER) (test code = 431) EOSINOPHILS RELATIVE PERCENT 1 % (BEAKER) (test code = 432) BASOPHILS RELATIVE PERCENT 0 % (BEAKER) (test code = 437) NEUTROPHILS ABSOLUTE COUNT 7.60 K/ L 1.56-6.13 H (BEAKER) (test code = 670) LYMPHOCYTES ABSOLUTE COUNT 2.04 K/ L 1.18-3.74 (BEAKER) (test code = 414) MONOCYTES ABSOLUTE COUNT (BEAKER) 0.91 K/ L 0.24-0.36 H (test code = 415) EOSINOPHILS ABSOLUTE COUNT 0.13 K/ L 0.04-0.36 (BEAKER) (test code = 416) BASOPHILS ABSOLUTE COUNT (BEAKER) 0.03 K/ L 0.01-0.08 (test code = 417) IMMATURE GRANULOCYTES-RELATIVE 1 % 0-1 PERCENT (BEAKER) (test code = 2801) Urinalysis w/Microscopic + Reflex to [id number] 06:45:42 Test Item Value Reference Range Interpretation Comments Color, UA (test code Yellow = 5778-6) Clarity, UA (test Clear code = 5767-9) Specific [place], UA 1.026 1.001-1.035 (test code = 5811-5) pH, UA (test code = 6.5 5.0-8.0 5803-2) Protein, UA (test 20 mg/dL Negative A code = 79328-8) Glucose, UA (test Negative Negative code = 365) Ketones, UA (test Negative Negative code = 2514-8) Bilirubin, UA (test Negative Negative code = 55946-7) Blood, UA (test code Trace Negative A = 68649-6) Nitrite, UA (test Negative Negative code = 5802-4) Leukocytes, UA (test Moderate Negative A code = 5799-2) Urobilinogen, UA 0.2 mg/dL 0.2-1.0 (test code = 79652-6) RBC, UA (test code = 12 See_Comment [Autom ated 84411-4) message] The system which generated this result transmitted reference range : /HPF. The reference range was not used to interpret this result as normal/abnormal . WBC, UA (test code = 29 See_Comment [Autom ated 5821-4) message] The system which generated this result transmitted reference range : /HPF. The reference range was not used to interpret this result as normal/abnormal . Bacteria, UA (test None Seen code = 88285-0) Mucus (test code = Occasional 8247-9) Squam Epithel, UA <1 See_Comment [Automate d (test code = 46572-2) messag e] The system which generated this result transmitted reference range : /HPF. The reference range was not used to interpret this result as normal/abnormal . Crystals, Urine (test None Seen code = 94491-7) Specimen Source (test code = 2795) TORRES (test code = TORRES) Home Worker ID - [auto]Home Worker ID - tech Lab Interpretation Abnormal (test code = 48916-4) [facility] Culture 2022-04-07 06:45:42 Test Item Value Reference Range Interpretation Comments Color, UA (test code Yellow = 5778-6) Clarity, UA (test Clear code = 5767-9) Specific [place], UA 1.026 1.001-1.035 (test code = 5811-5) pH, UA (test code = 6.5 5.0-8.0 5803-2) Protein, UA (test 20 mg/dL Negative A code = 36117-3) Glucose, UA (test Negative Negative code = 365) Ketones, UA (test Negative Negative code = 2514-8) Bilirubin, UA (test Negative Negative code = 38391-1) Blood, UA (test code Trace Negative A = 96717-5) Nitrite, UA (test Negative Negative code = 5802-4) Leukocytes, UA (test Moderate Negative A code = 5799-2) Urobilinogen, UA 0.2 mg/dL 0.2-1.0 (test code = 31465-3) RBC, UA (test code = 12 See_Comment [Autom ated 12772-5) message] The system which generated this result transmitted reference range : /HPF. The reference range was not used to interpret this result as normal/abnormal . WBC, UA (test code = 29 See_Comment [Autom ated 5821-4) message] The system which generated this result transmitted reference range : /HPF. The reference range was not used to interpret this result as normal/abnormal . Bacteria, UA (test None Seen code = 44642-5) Mucus (test code = Occasional 8247-9) Squam Epithel, UA <1 See_Comment [Automate d (test code = 45413-3) messag e] The system which generated this result transmitted reference range : /HPF. The reference range was not used to interpret this result as normal/abnormal . Crystals, Urine (test None Seen code = 39579-1) Specimen Source (test code = 2795) TORRES (test code = TORRES) Home Worker ID - [auto]Home Worker ID - tech Lab Interpretation Abnormal (test code = 62787-2) [facility]lex [facility] Culture 2022-04-07 06:45:42 Test Item Value Reference Range Interpretation Comments Color, UA (test code Yellow = 5778-6) Clarity, UA (test Clear code = 5767-9) Specific [place], UA 1.026 1.001-1.035 (test code = 5811-5) pH, UA (test code = 6.5 5.0-8.0 5803-2) Protein, UA (test 20 mg/dL Negative A code = 47101-4) Glucose, UA (test Negative Negative code = 365) Ketones, UA (test Negative Negative code = 2514-8) Bilirubin, UA (test Negative Negative code = 23202-9) Blood, UA (test code Trace Negative A = 36671-1) Nitrite, UA (test Negative Negative code = 5802-4) Leukocytes, UA (test Moderate Negative A code = 5799-2) Urobilinogen, UA 0.2 mg/dL 0.2-1.0 (test code = 14091-6) RBC, UA (test code = 12 See_Comment [Autom ated 15723-1) message] The system which generated this result transmitted reference range : /HPF. The reference range was not used to interpret this result as normal/abnormal . WBC, UA (test code = 29 See_Comment [Autom ated 5821-4) message] The system which generated this result transmitted reference range : /HPF. The reference range was not used to interpret this result as normal/abnormal . Bacteria, UA (test None Seen code = 41531-6) Mucus (test code = Occasional 8247-9) Squam Epithel, UA <1 See_Comment [Automate d (test code = 09659-2) messag e] The system which generated this result transmitted reference range : /HPF. The reference range was not used to interpret this result as normal/abnormal . Crystals, Urine (test None Seen code = 69424-1) Specimen Source (test code = 2795) TORRES (test code = TORRES) Home Worker ID - [auto]Home Worker ID - tech Lab Interpretation Abnormal (test code = 74712-6) [facility] [id number] 06:45:42 Test Item Value Reference Range Interpretation Comments COLOR (BEAKER) (test code = 470) Yellow CLARITY (BEAKER) (test code = 469) Clear SPECIFIC GRAVITY UA (BEAKER) (test 1.026 1.001-1.035 code = 468) PH UA (BEAKER) (test code = 467) 6.5 5.0-8.0 PROTEIN UA (BEAKER) (test code = 20 mg/dL Negative A 464) GLUCOSE UA (BEAKER) (test code = Negative Negative 365) KETONES UA (BEAKER) (test code = Negative Negative 371) BILIRUBIN UA (BEAKER) (test code = Negative Negative 462) BLOOD UA (BEAKER) (test code = Trace Negative A 461) NITRITE UA (BEAKER) (test code = Negative Negative 465) LEUKOCYTE ESTERASE UA (BEAKER) Moderate Negative A (test code = 466) UROBILINOGEN UA (BEAKER) (test 0.2 mg/dL 0.2-1.0 code = 463) RBC UA (BEAKER) (test code = 519) 12 /HPF WBC UA (BEAKER) (test code = 520) 29 /HPF BACTERIA (BEAKER) (test code = None Seen 517) MUCUS (BEAKER) (test code = 1574) Occasional SQUAMOUS EPITHELIAL (BEAKER) (test < /HPF code = 516) CRYSTALS, URINE (BEAKER) (test None Seen code = 1521) SOURCE(BEAKER) (test code = 2795) Home Worker ID - [auto]Home Worker ID - techBASIC METABOLIC [id number] 06:11:49 Test Item Value Reference Range Interpretation Comments SODIUM (BEAKER) 139 meq/L 136-145 (test code = 381) POTASSIUM (BEAKER) 4.3 meq/L 3.5-5.1 (test code = 379) CHLORIDE (BEAKER) 104 meq/L 98-107 (test code = 382) CO2 (BEAKER) (test 27 meq/L 22-29 code = 355) BLOOD UREA NITROGEN 16 mg/dL 7-21 (BEAKER) (test code = 354) CREATININE (BEAKER) 1.08 mg/dL 0.57-1.25 (test code = 358) GLUCOSE RANDOM 92 mg/dL 70-105 (BEAKER) (test code = 652) CALCIUM (BEAKER) 8.7 mg/dL 8.4-10.2 (test code = 697) EGFR (BEAKER) (test 50 mL/min/1.[address] GFR IS code = 1092) sq m NOT ACCURATE CREATININE CLEARANCE IN PREDICTING GLOMERULAR FILTRATION RATE . ESTIMATED GFR I S NOT APPLICABLE FOR DIALYSIS PATIEN TS. Home Worker ID - ELVIN WSARS-COV2/RT-PCR ([facility])2022-04-07 04:44:08 Test Item Value Reference Range Interpretation Comments SARS-COV2/RT-PCR (test Negative Not Detected, Negative, code = 9683867) See external report for linked test SARS-COV-2 PERFORMING LAB [facility] (test code = 4736692) Negative result for this test determines that [...] individuals suspected of COVID-19 by their healthcare provider.This test [...] justifying the authorization of the emergency use ofin vitro diagnostic tests for detection and/or diagnosis of COVID-19 is terminated under Section 564(b)(2) of the Act or the EUA is revoked under Section 564(g) of the Act.Fact Sheet for Healthcare Prov iders:https://www.[employer]/sites/default/files/product/documents/Fact_Sheet_HC _Baiqvoiwi_Pgsx_HZRK-NhN-4.pdfFact Sheet for Healthcare Patients:https://www.[employer]/sites/default/files/product/docume nts/Iiuq_Aonvh_Jqsqszyj_Exnt_OWZF-GwN-5.pdfPerforming Laboratory:[place] [address].[place], [place] [address]ABQY. METABOLIC PANEL (61183)2021-07-24 17:14:29 Test Item Value Reference Range Interpretation Comments NA (test code = 139 mmol/L 135-145 3517336857) K (test code = 4.3 mmol/L 3.5-5.0 2302418592) CL (test code = 104 mmol/L 98-108 3542260993) CO2 TOTAL (test code = 24 mmol/L 23-31 2751632461) AGAP (test code = 2-16 6473320871) BUN (test code = 18 mg/dL 7-23 7813320954) GLUCOSE (test code = 104 mg/dL 70-110 1020507466) CREATININE (test code = 1.39 mg/dL 0.50-1.04 H 5501080757) TOTAL BILI (test code = 0.4 mg/dL 0.1-1.4 2313174639) CALCIUM (test code = 9.6 mg/dL 8.6-10.6 8046742245) T PROTEIN (test code = 8.4 g/dL 6.3-8.2 H 1751723219) ALBUMIN (test code = 4.6 g/dL 3.5-5.0 4439802904) ALK PHOS (test code = 93 U/L 34-122 4206104144) ALTv (test code = 44 U/L 5-35 H 1742-6) AST(SGOT) (test code = 48 U/L 13-40 H 4953726461) eGFR (test code = mL/min/1.73m2 7737465658) TORRES (test code = TORRES) Association of Glomerular Filtration Rate (GFR) and Staging of Kidney Disease* + --+ --+ ------+| GFR (mL/min/1.73 m2) ?| With Kidney Damage ?| ?Without Kidney Damage+ --------+ --------+ +| ?>90 ?| ?Stage one ?| ? Normal ?+ ---+ ---+ -------+| ?60-89 ?| ?Stage two ?| ? Decreased GFR ? + --+ --+ ------+| ?30-59 ?| ?Stage three ?| ? Stage three ? + --+ --+ ------+| ?15-29 ?| ?Stage four ? | ? Stage four ?+ ---+ ---+ -------+| ?<15 (or dialysis) ? ?| ?Stage five ? | ? Stage five ?+ ---+ ---+ -------+ *Each stage assumes the associated GFR [...] or abnormalities in imaging tests). Lab Interpretation Abnormal (test code = 75673-7) [facility] Test Item Value Reference Range Interpretation Comments LIPASE (test code = 1652488332) 266 U/L 0-220 H Lab Interpretation (test code = Abnormal 83260-8) [facility] WITH [id number] 17:03:27 Test Item Value Reference Range Interpretation Comments WBC (test code = See_Comment [Automated 0850-2) message] The sy stem which generated this [...] RDW-SD (test code = 48.4 fL 39.0-49.9 35086-7) RDW-CV (test code = 13.8 % 12.0-15.5 788-0) PLT (test code = See_Comment [Automated 787-3) message] The sy stem which generated this result transmitted reference range : 166 - 358 10*3/ ?L. The reference r becca was not used to interpret this result as normal/abnormal . MPV (test code = 9.1 fL 9.5-12.9 L 24857-7) NRBC/100 WBC (test See_Comment [Automat ed code = 7116265735) message] The system which generated this result transmitted reference range : 0.0 - 10.0 /100 WBCs. The refer ence range was not u sed to interpret th is result as normal/abnormal . NRBC x10^3 (test code <0.01 See_Comment [Auto mated = 3495603449) message] The s ystem which generated this result transmitted reference range : 10*3/?L. The reference range was not used to interpret this result as normal/abnormal . GRAN MAT (NEUT) % 64.8 % (test code = 770-8) IMM GRAN % (test code 0.90 % = 7045152330) LYMPH % (test code = 24.2 % 736-9) MONO % (test code = 8.2 % 5905-5) EOS % (test code = 1.4 % 713-8) BASO % (test code = 0.5 % 706-2) GRAN MAT x10^3(ANC) 5.59 10*3/uL 1.88-7.09 (test code = 9191958709) IMM GRAN x10^3 (test 0.08 10*3/uL 0.00-0.06 H code = 6908082515) LYMPH x10^3 (test code 2.09 10*3/uL 1.32-3.29 = 731-0) MONO x10^3 (test code 0.71 10*3/uL 0.33-0.92 = 742-7) EOS x10^3 (test code = 0.12 10*3/uL 0.03-0.39 711-2) BASO x10^3 (test code 0.04 10*3/uL 0.01-0.07 = 704-7) Lab Interpretation Abnormal (test code = 61839-3) [facility] [id number] 07:08:00 Test Item Value Reference Range Interpretation Comments Sodium (test code = 139 meq/L 339-340 2569-2) Potassium (test 4.1 meq/L 3.5-5.1 code = 2823-3) Chloride (test code 107 meq/L 98-107 = 2075-0) CO2 (test code = 25 meq/L 22-29 2027-9) BUN (test code = 13 mg/dL 7-21 3094-0) Creatinine (test 0.97 mg/dL 0.57-1.25 code = 2160-0) Glucose (test code 80 mg/dL 70-105 = 2345-7) Calcium (test code 8.9 mg/dL 8.4-10.2 = 29440-9) EGFR (test code = 56 mL/min/1.[address] [place] [address]-6) NOT ACCURATE CREATININE CLEARANCE IN PREDICTING GLOMERULAR FILTRATION RATE . ESTIMATED GFR I S NOT APPLICABLE FOR DIALYSIS PATIEN TORRES (test code = Home Worker ID - TORRES) TOÑITO Camacho [facility]Hepatic function [id number] 07:08:00 Test Item Value Reference Range Interpretation Comments Protein, Total (test 6.9 See_Comment [Autom ated code = 2885-2) message] The system which generated this result transmit lane reference range : 6.0 - 8.3 gm/dL . The reference range was not u sed to interpret th is result as normal/abnormal . Albumin (test code = 3.6 g/dL 3.5-5 77589-6) Total Bilirubin (test 0.3 mg/dL 0.2-1.2 code = 1974-2) Bilirubin, Direct 0.2 mg/dL 0.1-0.5 (test code = 1967-7) Alkaline Phosphatase 56 U/L 40-150 (test code = 6768-6) AST (test code = 37 U/L 5-34 H 192-8) ALT (test code = 50 U/L 6-55 1742-6) TORRES (test code = TORRES) Home Worker ID - TOÑITO Camacho Lab Interpretation Abnormal (test code = 37718-8) [facility] [id number] 07:08:00 Test Item Value Reference Range Interpretation Comments Sodium (test code = 139 meq/L 993-128 4936-2) Potassium (test 4.1 meq/L 3.5-5.1 code = 2823-3) Chloride (test code 107 meq/L 98-107 = 2075-0) CO2 (test code = 25 meq/L -2028-05) BUN (test code = 13 mg/dL 7-21 3094-0) Creatinine (test 0.97 mg/dL 0.57-1.25 code = 2160-0) Glucose (test code 80 mg/dL 70-105 = 2345-7) Calcium (test code 8.9 mg/dL 8.4-10.2 = 45774-6) EGFR (test code = 56 mL/min/1.[address] [place] [address]-7) NOT ACCURATE CREATININE CLEARANCE IN PREDICTING GLOMERULAR FILTRATION RATE . ESTIMATED GFR I S NOT APPLICABLE FOR DIALYSIS PATIEN TORRES (test code = Home Worker ID - TORRES) TOÑITO Camacho [facility] CenterHep[facility] function [id number] 07:08:00 Test Item Value Reference Range Interpretation Comments Protein, Total (test 6.9 See_Comment [Autom ated code = 2885-2) message] The system which generated this result transmit lane reference range : 6.0 - 8.3 gm/dL . The reference range was not u sed to interpret th is result as normal/abnormal . Albumin (test code = 3.6 g/dL 3.5-5 05841-8) Total Bilirubin (test 0.3 mg/dL 0.2-1.2 code = 1974-2) Bilirubin, Direct 0.2 mg/dL 0.1-0.5 (test code = 1968-7) Alkaline Phosphatase 56 U/L 40-150 (test code = 6768-6) AST (test code = 37 U/L 5-34 H 1920-8) ALT (test code = 50 U/L 6-55 1742-6) TORRES (test code = TORRES) Home Worker ID - TOÑITO Camacho Lab Interpretation Abnormal (test code = 74857-2) [facility] [id number] 07:08:00 Test Item Value Reference Range Interpretation Comments Sodium (test code = 139 meq/L 332-060 2468-2) Potassium (test 4.1 meq/L 3.5-5.1 code = 2823-3) Chloride (test code 107 meq/L 98-107 = 2075-0) CO2 (test code = 25 meq/L 2028-05) BUN (test code = 13 mg/dL 04-01 3094-0) Creatinine (test 0.97 mg/dL 0.57-1.25 code = 2160-0) Glucose (test code 80 mg/dL 70-105 = 2345-7) Calcium (test code 8.9 mg/dL 8.4-10.2 = 95764-9) EGFR (test code = 56 mL/min/1.[address] [place] [address]-1) NOT ACCURATE CREATININE CLEARANCE IN PREDICTING GLOMERULAR FILTRATION RATE . ESTIMATED GFR I S NOT APPLICABLE FOR DIALYSIS PATIEN TORRES (test code = Home Worker ID - TORRES) TOÑITO Camacho [facility] CenterHep[facility] function [id number] 07:08:00 Test Item Value Reference Range Interpretation Comments Protein, Total (test 6.9 See_Comment [Autom ated code = 2885-2) message] The system which generated this result transmit lane reference range : 6.0 - 8.3 gm/dL . The reference range was not u sed to interpret th is result as normal/abnormal . Albumin (test code = 3.6 g/dL 3.5-5 27113-4) Total Bilirubin (test 0.3 mg/dL 0.2-1.2 code = 1975-2) Bilirubin, Direct 0.2 mg/dL 0.1-0.5 (test code = 1968-7) Alkaline Phosphatase 56 U/L 40-150 (test code = 6768-6) AST (test code = 37 U/L 5-34 H 1920-8) ALT (test code = 50 U/L 6-55 1742-6) TORRES (test code = TORRES) Home Worker ID - TOÑITO Camacho Lab Interpretation Abnormal (test code = 71503-8) [facility] [id number] 07:08:00 Test Item Value Reference Range Interpretation Comments Sodium (test code = 139 meq/L 550-679 6675-2) Potassium (test 4.1 meq/L 3.5-5.1 code = 2823-3) Chloride (test code 107 meq/L 98-107 = 2075-0) CO2 (test code = 25 meq/L 2028-05) BUN (test code = 13 mg/dL 7-21 3094-0) Creatinine (test 0.97 mg/dL 0.57-1.25 code = 2160-0) Glucose (test code 80 mg/dL 70-105 = 2345-7) Calcium (test code 8.9 mg/dL 8.4-10.2 = 14199-8) EGFR (test code = 56 mL/min/1.[address] [place] [address]-4) NOT ACCURATE CREATININE CLEARANCE IN PREDICTING GLOMERULAR FILTRATION RATE . ESTIMATED GFR I S NOT APPLICABLE FOR DIALYSIS PATIEN TORRES (test code = Home Worker ID - TORRES) TOÑITO Camacho [facility] Center[facility] function [id number] 07:08:00 Test Item Value Reference Range Interpretation Comments Protein, Total (test 6.9 See_Comment [Autom ated code = 2885-2) message] The system which generated this result transmit lane reference range : 6.0 - 8.3 gm/dL . The reference range was not u sed to interpret th is result as normal/abnormal . Albumin (test code = 3.6 g/dL 3.5-5 64419-5) Total Bilirubin (test 0.3 mg/dL 0.2-1.2 code = 1975-2) Bilirubin, Direct 0.2 mg/dL 0.1-0.5 (test code = 1968-7) Alkaline Phosphatase 56 U/L 40-150 (test code = 6768-6) AST (test code = 37 U/L 5-34 H 1920-8) ALT (test code = 50 U/L 6-55 1742-6) TORRES (test code = TORRES) Home Worker ID - TOÑITO Camacho Lab Interpretation Abnormal (test code = 97100-8) [facility] CenterBAS[facility]OLIC [id number] 07:08:00 Test Item Value Reference Range Interpretation [...] S NOT APPLICABLE FOR DIALYSIS PATIEN TS. Home Worker ID - PIJOVANNI LHEPATIC FUNCTION [id number] 07:08:00 Test Item Value Reference Range Interpretation [...] (test code = 50 U/L 6-55 347) Home Worker ID - TOÑITO LCBC with platelet count + automated [id number] 06:01:00 Test Item Value Reference Range Interpretation Comments WBC (test code = 6690-2) 7.9 See_Comment [A utomated message] The system [employer] generated this result transmitted ref erence range: 3.5 - 10 .5 K/L. The refe rence range was not u sed to interpret this result as normal/abnor mal. RBC (test code = 789-8) 3.22 See_Comment L [Au tomated message] The system [employer] generated this result transmitted ref erence range: 3.93 - 5 .22 M/L. The refe rence range was not u sed to interpret this result as normal/abnor mal. MCHC (test code = 786-4) 31.8 See_Comment L [A utomated message] The system [employer] generated this result transmitted ref erence range: [...] See_Comment [Aut omated message] 777-3) The system [employer] generated this result transmitted ref erence range: 150 - 45 0 K/CU MM. The referen ce range was not u sed to interpret this result as normal/abnor mal. MPV (test code = 8.9 fL 9.4-12.3 L 84045-9) nRBC (test code = 413) 0 See_Comment [Aut omated message] The system [employer] generated this result transmitted ref erence range: [...] See_Comment [Aut omated message] 670) The system [employer] generated this result transmitted ref erence range: 1.56 - 6 .13 K/L. The refe rence range was not u sed to interpret this result as normal/abnor mal. # Lymphs (test code = 2.20 See_Comment [Auto mated message] 414) The system [employer] generated this result transmitted ref erence range: 1.18 - 3 .74 K/L. The refe rence range was not u sed to interpret this result as normal/abnor mal. # Monos (test code = 0.54 See_Comment H [Autom ated message] 415) The system whic h generated this result transmitted ref erence range: 0.24 - 0 .36 K/L. The refe rence range was not u sed to interpret this result as normal/abnor mal. # Eos (test code = 416) 0.08 See_Comment [Au tomated message] The system [employer] generated this result transmitted ref erence range: 0.04 - 0 .36 K/L. The refe rence range was not u sed to interpret this result as normal/abnor mal. # Baso (test code = 417) 0.03 See_Comment [A utomated message] The system [employer] generated this result transmitted ref erence range: 0.01 - 0 .08 K/L. The refe rence range was not u sed to interpret this result as normal/abnor mal. Immature 0 % 0-1 Granulocytes-Relative (test code = 2801) Lab Interpretation (test Abnormal code = 93600-5) [facility] with platelet count + automated [id number] 06:01:00 Test Item Value Reference Range Interpretation Comments WBC (test code = 6690-2) 7.9 See_Comment [A utomated message] The system [employer] generated this result transmitted ref erence range: 3.5 - 10 .5 K/L. The refe rence range was not u sed to interpret this result as normal/abnor mal. RBC (test code = 789-8) 3.22 See_Comment L [Au tomated message] The system [employer] generated this result transmitted ref erence range: 3.93 - 5 .22 M/L. The refe rence range was not u sed to interpret this result as normal/abnor mal. MCHC (test code = 786-4) 31.8 See_Comment L [A utomated message] The system [employer] generated this result transmitted ref erence range: [...] See_Comment [Aut omated message] 777-3) The system [employer] generated this result transmitted ref erence range: 150 - 45 0 K/CU MM. The referen ce range was not u sed to interpret this result as normal/abnor mal. MPV (test code = 8.9 fL 9.4-12.3 L 28350-3) nRBC (test code = 413) 0 See_Comment [Aut omated message] The system [employer] generated this result transmitted ref erence range: [...] See_Comment [Aut omated message] 670) The system [employer] generated this result transmitted ref erence range: 1.56 - 6 .13 K/L. The refe rence range was not u sed to interpret this result as normal/abnor mal. # Lymphs (test code = 2.20 See_Comment [Auto mated message] 414) The system [employer] generated this result transmitted ref erence range: 1.18 - 3 .74 K/L. The refe rence range was not u sed to interpret this result as normal/abnor mal. # Monos (test code = 0.54 See_Comment H [Autom ated message] 415) The system [employer] generated this result transmitted ref erence range: 0.24 - 0 .36 K/L. The refe rence range was not u sed to interpret this result as normal/abnor mal. # Eos (test code = 416) 0.08 See_Comment [Au tomated message] The system [employer] generated this result transmitted ref erence range: 0.04 - 0 .36 K/L. The refe rence range was not u sed to interpret this result as normal/abnor mal. # Baso (test code = 417) 0.03 See_Comment [A utomated message] The system [employer] generated this result transmitted ref erence range: 0.01 - 0 .08 K/L. The refe rence range was not u sed to interpret this result as normal/abnor mal. Immature 0 % 0-1 Granulocytes-Relative (test code = 2801) Lab Interpretation (test Abnormal code = 10542-5) [facility] with platelet count + automated [id number] 06:01:00 Test Item Value Reference Range Interpretation Comments WBC (test code = 6690-2) 7.9 See_Comment [A utomated message] The system [employer] generated this result transmitted ref erence range: 3.5 - 10 .5 K/L. The refe rence range was not u sed to interpret this result as normal/abnor mal. RBC (test code = 789-8) 3.22 See_Comment L [Au tomated message] The system [employer] generated this result transmitted ref erence range: 3.93 - 5 .22 M/L. The refe rence range was not u sed to interpret this result as normal/abnor mal. MCHC (test code = 786-4) 31.8 See_Comment L [A utomated message] The system [employer] generated this result transmitted ref erence range: [...] See_Comment [Aut omated message] 777-3) The system [employer] generated this result transmitted ref erence range: 150 - 45 0 K/CU MM. The referen ce range was not u sed to interpret this result as normal/abnor mal. MPV (test code = 8.9 fL 9.4-12.3 L 48179-0) nRBC (test code = 413) 0 See_Comment [Aut omated message] The system [employer] generated this result transmitted ref erence range: [...] See_Comment [Aut omated message] 670) The system [employer] generated this result transmitted ref erence range: 1.56 - 6 .13 K/L. The refe rence range was not u sed to interpret this result as normal/abnor mal. # Lymphs (test code = 2.20 See_Comment [Auto mated message] 414) The system [employer] generated this result transmitted ref erence range: 1.18 - 3 .74 K/L. The refe rence range was not u sed to interpret this result as normal/abnor mal. # Monos (test code = 0.54 See_Comment H [Autom ated message] 415) The system [employer] generated this result transmitted ref erence range: 0.24 - 0 .36 K/L. The refe rence range was not u sed to interpret this result as normal/abnor mal. # Eos (test code = 416) 0.08 See_Comment [Au tomated message] The system [employer] generated this result transmitted ref erence range: 0.04 - 0 .36 K/L. The refe rence range was not u sed to interpret this result as normal/abnor mal. # Baso (test code = 417) 0.03 See_Comment [A utomated message] The system [employer] generated this result transmitted ref erence range: 0.01 - 0 .08 K/L. The refe rence range was not u sed to interpret this result as normal/abnor mal. Immature 0 % 0-1 Granulocytes-Relative (test code = 2801) Lab Interpretation (test Abnormal code = 78821-1) [facility] [id number] 06:01:00 Test Item Value Reference Range Interpretation Comments WBC (test code = 6690-2) 7.9 See_Comment [A utomated message] The system [employer] generated this result transmitted ref erence range: 3.5 - 10 .5 K/L. The refe rence range was not u sed to interpret this result as normal/abnor mal. RBC (test code = 789-8) 3.22 See_Comment L [Au tomated message] The system [employer] generated this result transmitted ref erence range: 3.93 - 5 .22 M/L. The refe rence range was not u sed to interpret this result as normal/abnor mal. MCHC (test code = 786-4) 31.8 See_Comment L [A utomated message] The system [employer] generated this result transmitted ref erence range: [...] See_Comment [Aut omated message] 777-3) The system [employer] generated this result transmitted ref erence range: 150 - 45 0 K/CU MM. The referen ce range was not u sed to interpret this result as normal/abnor mal. MPV (test code = 8.9 fL 9.4-12.3 L 02730-6) nRBC (test code = 413) 0 See_Comment [Aut omated message] The system [employer] generated this result transmitted ref erence range: [...] See_Comment [Aut omated message] 670) The system [employer] generated this result transmitted ref erence range: 1.56 - 6 .13 K/L. The refe rence range was not u sed to interpret this result as normal/abnor mal. # Lymphs (test code = 2.20 See_Comment [Auto mated message] 414) The system [employer] generated this result transmitted ref erence range: 1.18 - 3 .74 K/L. The refe rence range was not u sed to interpret this result as normal/abnor mal. # Monos (test code = 0.54 See_Comment H [Autom ated message] 415) The system [employer] generated this result transmitted ref erence range: 0.24 - 0 .36 K/L. The refe rence range was not u sed to interpret this result as normal/abnor mal. # Eos (test code = 416) 0.08 See_Comment [Au tomated message] The system [employer] generated this result transmitted ref erence range: 0.04 - 0 .36 K/L. The refe rence range was not u sed to interpret this result as normal/abnor mal. # Baso (test code = 417) 0.03 See_Comment [A utomated message] The system [employer] generated this result transmitted ref erence range: 0.01 - 0 .08 K/L. The refe rence range was not u sed to interpret this result as normal/abnor mal. Immature 0 % 0-1 Granulocytes-Relative (test code = 2801) Lab Interpretation (test Abnormal code = 91632-6) [facility] W/PLT COUNT & AUTO [id number] 06:01:00 Test Item Value Reference Range Interpretation [...] (BEAKER) (test code = 2801) ECG 12 [id number] 06:47:19Interface, External Ris In - 05/05/2021 6:47 AM CDTVentricular Rate 91 BPMAtrial Rate 91 BPMP-R Interval 126 msQRS Duration 78 msQ-T Interval 352 msQTC Calculation(Bazett) 432 msP Maud 44 degreesR Axis28 degreesT Maud 39 degreesNormal sinus rhythmNormal ECGNo previous ECGs availableConfirmed by MD BELLAMY JOSEPH P ([id number]) on 05/05/2021 6:47:15 [facility] [id number] 06:47:19Interface, External Ris In - 05/05/2021 6:47 AM CDTVentricular Rate 91 BPMAtrial Rate 91 BPMP-R Interval 126 msQRS Duration 78 msQ-T Interval 352 msQTC Calculation(Bazett) 432 msP Maud 44 degreesR Axis28 degreesT Maud 39 degreesNormal sinus rhythmNormal ECGNo previous ECGs availableConfirmed by MD BELLAMY JOSEPH P ([id number]) on 05/05/2021 6:47:15 [facility] [id number] 06:47:19Interface, External Ris In 05/05/2021 6:47 AM CDTVentricular Rate 91 BPMAtrial Rate 91 BPMP-R Interval 126 msQRS Duration 78 msQ-T Interval 352 msQTC Calculation(Bazett) 432 msP Maud 44 degreesR Axis28 degreesT Maud 39 degreesNormal sinus rhythmNormal ECGNo previous ECGs availableConfirmed by MD BELLAMY JOSEPH P ([id number]) on 05/05/2021 6:47:15 [facility] ECG 12 [id number] 06:47:19Interface, External Ris In 05/05/2021 6:47 AM CDTVentricular Rate 91 BPMAtrial Rate 91 BPMP-R Interval 126 msQRS Duration 78 msQ-T Interval 352 msQTC Calculation(Bazett) 432 msP Maud 44 degreesR Axis28 degreesT Maud 39 degreesNormal sinus rhythmNormal ECGNo previous ECGs availableConfirmed by MD BELLAMY JOSEPH P ([id number]) on 05/05/2021 6:47:15 [facility]AB[facility], [id number] 06:17:00 Test Item Value Reference Range Interpretation Comments ABO Grouping (test code = 2588) O Rh Factor (test code = 2589) POS [facility], [id number] 06:17:00 Test Item Value Reference Range Interpretation Comments ABO Grouping (test code = 2588) O Rh Factor (test code = 2589) POS [facility], [id number] 06:17:00 Test Item Value Reference Range Interpretation Comments ABO Grouping (test code = 2588) O Rh Factor (test code = 2589) POS [facility], [id number] 06:17:00 Test Item Value Reference Range Interpretation Comments ABO Grouping (test code = 2588) O Rh Factor (test code = 2589) [facility] ([facility]) 2021-05-05 05:01:00 Test Item Value Reference Range Interpretation Comments ABO/RH AUTOMATED (BEAKER) (test O POSITIVE code = 2260) Ab Scrn (test code = 890-4) NEGATIVE [facility] automated ([facility] and [facility] only) 2021-05-05 05:01:00 Test Item Value Reference Range Interpretation Comments ABO/RH AUTOMATED (BEAKER) (test O POSITIVE code = 2260) Ab Scrn (test code = 890-4) NEGATIVE [facility] automated ([facility] and [facility]) 2021-05-05 05:01:00 Test Item Value Reference Range Interpretation Comments ABO/RH AUTOMATED (BEAKER) (test O POSITIVE code = 2260) Ab Scrn (test code = 890-4) NEGATIVE [facility] automated ([facility]) 2021-05-05 05:01:00 Test Item Value Reference Range Interpretation Comments ABO/RH AUTOMATED (BEAKER) (test O POSITIVE code = 2260) Ab Scrn (test code = 890-4) NEGATIVE [facility] CenterPT/[id number] 04:35:00 Test Item Value Reference Interpretation Comments [...] valves. Lab Interpretation Normal (test code = 75468-2) [facility]PT/[id number] 04:35:00 Test Item Value Reference Interpretation Comments Range Protime (test code = 13.7 See_Comment [Autom ated 5902-2) message] The system which generated this result transmitted reference range : 11.9 - 14.2 seconds. The reference range was not used to interpret this result as normal/abnormal . INR (test code = 1.07 See_Comment [Automated allyve1-6) message] The system which generated this result [...] valves. Lab Interpretation Normal (test code = 68585-5) [facility]/[id number] 04:35:00 Test Item Value Reference Interpretation Comments [...] valves. Lab Interpretation Normal (test code = 86816-9) [facility]PT/[id number] 04:35:00 Test Item Value Reference Interpretation Comments [...] valves. Lab Interpretation Normal (test code = 89520-0) [facility] CenterPROTHROMBIN TIME/[id number] 04:35:00 Test Item Value Reference Range Interpretation Comments PROTIME (BEAKER) 13.7 seconds 11.9-14.2 (test code = 759) INR (BEAKER) (test 1.07 See_Comment [Automat ed message] code = 370) The system [employer] generated this result transmitted ref erence range: <=5.90. The reference range was not used to int erpret this result as normal/abnormal . RECOMMENDED COUMADIN/WARFARIN INR THERAPY RANGESSTANDARD DOSE: 2.0 - 3.0 Includes: PROPHYLAXIS for venous thrombosis, systemic embolization; TREATMENT for venous thrombosis and/or pulmonary embolus.HIGH RISK: Target INR is 2.5-3.5 for patients with mechanical heart valves.High Sensitivity Troponin [id number] 01:56:00 Test Item Value Reference Range Interpretation Comments Troponin I HS (test <4 See_Comment [[place] code = 88667-2) message] The system which generated this result transmitted reference range : <=17 pg/ml. The reference range was not used to interpret this result as normal/abnormal . TORRES (test code = Home Worker ID - TORRES) DBThe SERVER CASHIER STAT High Sensitivity Troponin-I results should be used in conjunction with other diagnostic information such as ECG, clinical observations and information, and patient symptoms to aid in the diagnosis of [place]. Lab Interpretation Normal (test code = 52316-7) [facility] CenterHigh [facility] Troponin [id number] 01:56:00 Test Item Value Reference Range Interpretation Comments Troponin I HS (test <4 See_Comment [[place] code = 01416-3) message] The system which generated this result transmitted reference range : <=17 pg/ml. The reference range was not used to interpret this result as normal/abnormal . TORRES (test code = Home Worker ID - TORRES) DBThe SERVER CASHIER STAT High Sensitivity Troponin-I results should be used in conjunction with other diagnostic information such as ECG, clinical observations and information, and patient symptoms to aid in the diagnosis of [place]. Lab Interpretation Normal (test code = 32048-4) [facility] Center[facility] Troponin [id number] 01:56:00 Test Item Value Reference Range Interpretation Comments Troponin I HS (test <4 See_Comment [[place] code = 20551-7) message] The system which generated this result transmitted reference range : <=17 pg/ml. The reference range was not used to interpret this result as normal/abnormal . TORRES (test code = Home Worker ID - TORRES) DBThe SERVER CASHIER STAT High Sensitivity Troponin-I results should be used in conjunction with other diagnostic information such as ECG, clinical observations and information, and patient symptoms to aid in the diagnosis of [place]. Lab Interpretation Normal (test code = 15426-8) [facility] CenterHigh [facility] Troponin [id number] 01:56:00 Test Item Value Reference Range Interpretation Comments Troponin I HS (test <4 See_Comment [[place] code = 65976-7) message] The system which generated this result transmitted reference range : <=17 pg/ml. The reference range was not used to interpret this result as normal/abnormal . TORRES (test code = Home Worker ID - TORRES) DBThe SERVER CASHIER STAT High Sensitivity Troponin-I results should be used in conjunction with other diagnostic information such as ECG, clinical observations and information, and patient symptoms to aid in the diagnosis of [place]. Lab Interpretation Normal (test code = 80382-8) [facility] CenterHIGH SENSITIVITY TROPONIN [id number] 01:56:00 Test Item Value Reference Range Interpretation Comments HIGH SENSITIVITY < pg/ml See_Comment [Automated message] TROPONIN I (test code = The system which 6689480) generated this result transmitted ref erence range: <=17. Th e reference range was not used to interpr et this result as normal/abnormal . Home Worker ID - DBThe SERVER CASHIER STAT High Sensitivity Troponin-I results should be used in conjunctionwith other diagnostic information such as ECG, clinical observations and information, and patient symptoms to aid in the diagnosis of [place].Ketones, [id number] 01:40:00 Test Item Value Reference Range Interpretation Comments Ketones, Blood (test code = 1103) 0.4 mmol/L <0.4 H Lab Interpretation (test code = Abnormal 67863-9) [facility], [id number] 01:40:00 Test Item Value Reference Range Interpretation Comments Ketones, Blood (test code = 1103) 0.4 mmol/L <0.4 H Lab Interpretation (test code = Abnormal 73287-2) [facility] [id number] 01:40:00 Test Item Value Reference Range Interpretation Comments Ketones, Blood (test code = 1103) 0.4 mmol/L <0.4 H Lab Interpretation (test code = Abnormal 63881-0) [facility], [id number] 01:40:00 Test Item Value Reference Range Interpretation Comments Ketones, Blood (test code = 1103) 0.4 mmol/L <0.4 H Lab Interpretation (test code = Abnormal 97747-0) [facility] [id number] 01:40:00 Test Item Value Reference Range Interpretation Comments KETONES, BLOOD (BEAKER) (test code 0.4 mmol/L <0.4 H = 1103) SARS-CoV2/RT-PCR (Asymptomatic ONLY)2021-05-05 01:30:00 Test Item Value Reference Interpretation Comments Range SARS-COV2/RT-PCR Negative Negative The SARS-Co V-2 (test code = target nucleic 04894-2) acids are not detected in thi s specimen. Negat tonio results do not preclude SARS-C oV-2 infection and should not be u sed as the sole bas is for patient management decisions. Nega tive results must be combined with clinical observations, patient history , and epidemiolog ical information. A false negative result may occu r if a specimen is improperly collected, transported or handled. This S ARS CoV-2 test is a rapid, real-doug e RT-PCR test intended for th e qualitative detection of nucleic acid fr om SARS-CoV-2 in a nasopharyngeal swab specimen collec lnae from individual s suspected of COVID-19 by [...] revoked sooner. Fact Sheet for Healthcare Providers: https://www.[employer]/Documents/Xp ert%20Xpress%20SAR S%20CoV-2/Fact%20S heets/3023802%20S ARS-COV-2%20HEALTH CARE%20PROVIDERS%2 0FACT%20SHEET.pdf Fact Sheet for Healthcare Patients: https://www.[employer]/Documents/Xp ert%20Xpress%20SAR S%20CoV-2/Fact%20S heets/302-3801%20S ARS-COV-2%20PATIEN T%20FACT%20SHEET.p df Lab Interpretation Normal (test code = 02399-4) [facility]2021-05-05 01:30:00 Test Item Value Reference Interpretation Comments Range SARS-COV2/RT-PCR Negative Negative The SARS-Co V-2 (test code = target nucleic 75599-8) acids are not detected in thi s specimen. Negat tonio results do not preclude SARS-C oV-2 infection and should not be u sed as the sole bas is for patient management decisions. Nega tive results must be combined with clinical observations, patient history , and epidemiolog ical information. A false negative result may occu r if a specimen is improperly collected, transported or handled. This S ARS CoV-2 test is a rapid, real-doug e [...] revoked sooner. Fact Sheet for Healthcare Providers: https://www.[employer]/Documents/Xp ert%20Xpress%20SAR S%20CoV-2/Fact%20S heets/302-3802%20S ARS-COV-2%20HEALTH CARE%20PROVIDERS%2 0FACT%20SHEET.pdf Fact Sheet for Healthcare Patients: https://www.[employer]/Documents/Xp ert%20Xpress%20SAR S%20CoV-2/Fact%20S heets/302-3801%20S ARS-COV-2%20PATIEN T%20FACT%20SHEET.p df Lab Interpretation Normal (test code = 56975-0) [facility]2021-05-05 01:30:00 Test Item Value Reference Interpretation Comments Range SARS-COV2/RT-PCR Negative Negative The SARS-Co V-2 (test code = target nucleic 30349-0) acids are not detected in thi s specimen. Negat tonio results do not preclude SARS-C oV-2 infection and should not be u sed as the sole bas is for patient management decisions. Nega tive results must be combined with clinical observations, patient history , and epidemiolog ical information. A false negative result may occu r if a specimen is improperly collected, transported or handled. This S ARS CoV-2 test is a rapid, real-doug e [...] revoked sooner. Fact Sheet for Healthcare Providers: https://www.[employer]/Documents/Xp ert%20Xpress%20SAR S%20CoV-2/Fact%20S heets/302-3802%20S ARS-COV-2%20HEALTH CARE%20PROVIDERS%2 0FACT%20SHEET.pdf Fact Sheet for Healthcare Patients: https://www.[employer]/Documents/Xp ert%20Xpress%20SAR S%20CoV-2/Fact%20S heets/302-3801%20S ARS-COV-2%20PATIEN T%20FACT%20SHEET.p df Lab Interpretation Normal (test code = 75898-8) [facility]2021-05-05 01:30:00 Test Item Value Reference Interpretation Comments Range SARS-COV2/RT-PCR Negative Negative The SARS-Co V-2 (test code = target nucleic 88881-5) acids are not detected in thi s specimen. Negat tonio results do not preclude SARS-C oV-2 infection and should not be u sed as the sole bas is for patient management decisions. Nega tive results must be combined with clinical observations, patient history , and epidemiolog ical information. A false negative result may occu r if a specimen is improperly collected, transported or handled. This S ARS CoV-2 test is a rapid, real-doug e [...] revoked sooner. Fact Sheet for Healthcare Providers: https://www.[employer]/Documents/Xp ert%20Xpress%20SAR S%20CoV-2/Fact%20S heets/302-3802%20S ARS-COV-2%20HEALTH CARE%20PROVIDERS%2 0FACT%20SHEET.pdf Fact Sheet for Healthcare Patients: https://www.[employer]/Documents/Xp ert%20Xpress%20SAR S%20CoV-2/Fact%20S heets/302-3801%20S ARS-COV-2%20PATIEN T%20FACT%20SHEET.p df Lab Interpretation Normal (test code = 07004-7) [facility])2021-05-05 01:30:00 Test Item Value Reference Range Interpretation Comments SARS-COV2/RT-PCR Negative Negative The SARS-Co V-2 target (test code = nucleic acids a re not 6606365) detected in thi s specimen. Negative result s do not preclude SARS-C oV-2 infection and s hould not be used as the candace e basis for patient managem ent decisions. Nega tive results must be combine d with clinical observ ations, patient history , and epidemiological information. A false negativ e result may occur if a spec imen is improperly jaren ected, transported or handled. This SARS CoV-2 test is a rapid, real-time RT-PC R test intended for th e qualitative detection [...] revoked sooner. Fact Sheet for Healthcare Providers: https://www.[facility]/Documents/Xpert%20Xpress%20SARS%20CoV-2/Fact%20Sheets/3023802%73YNFW-QZE-3%20 HEALTHCARE%20PROVIDERS%20FACT%20SHEET.pdf Fact Sheet for Healthcare Patients: https://www.[employer]/Documents/Xpert%20Xp ress%20SARS%20CoV-2/Fact%20Sheets/3023801%19XZMU-HQG-8%20PATIENT%20FACT%20SHEET .pdfBlood gas, [id number] 01:22:00 Test Item Value Reference Range Interpretation [...] code = 59 See_Comment H [Auto mated 1235-2) message] The sy stem which generated this result transmitted reference range : 25 - 40 mm Hg. The reference range was not used to interpret this result as normal/abnormal . O2 Sat, Niranjan (test code 89.4 % 40-70 H = 2711-0) HCO3, Niranjan (test code = 21 mmol/L 21-29 77856-3) Base Excess, Niranjan (test -4.5 mmol/L -2-3 L code = 1927-3) Patient Temperature 37.0 (test code = 8310-5) FIO2 (test code = 1819) 21 Lab Interpretation Abnormal (test code = 31343-6) [facility] gas, [id number] 01:22:00 Test Item Value Reference Range Interpretation Comments pH, Niarnjan (test code = 7.35 7.32-7.42 2746-6) pCO2, [...] Niranjan (test code = 21 mmol/L 21-29 96600-3) Base Excess, Niranjan (test -4.5 mmol/L -2-3 L code = 1927-3) Patient Temperature 37.0 (test code = 8310-5) FIO2 (test code = 1819) 21 Lab Interpretation Abnormal (test code = 85398-0) [facility] gas, [id number] 01:22:00 Test Item Value Reference Range Interpretation [...] Niranjan (test code = 21 mmol/L 21-29 76622-4) Base Excess, Niranjan (test -4.5 mmol/L -2-3 L code = 1927-3) Patient Temperature 37.0 (test code = 8310-5) FIO2 (test code = 1819) 21 Lab Interpretation Abnormal (test code = 99747-2) [facility], [id number] 01:22:00 Test Item Value Reference Range Interpretation [...] code = 59 See_Comment H [Auto mated 4315-2) message] The sy stem which generated this result transmitted reference range : 25 - 40 mm Hg. The reference range was not used to interpret this result as normal/abnormal . O2 Sat, Niranjan (test code 89.4 % 40-70 H = 2711-0) HCO3, Niranjan (test code = 21 mmol/L 59527-3) Base Excess, Niranjan (test -4.5 mmol/L -2-3 L code = 1927-3) Patient Temperature 37.0 (test code = 8310-5) FIO2 (test code = 1819) 21 Lab Interpretation Abnormal (test code = 72354-5) [facility] GAS, [id number] 01:22:00 Test Item Value Reference Range Interpretation Comments PH VENOUS (BEAKER) (test code = 7.35 7.32-7.42 701) PCO2 VENOUS (BEAKER) (test code = 39 mm Hg 41-51 L 755) PO2 VENOUS (BEAKER) (test code = 59 mm Hg 25-40 H 702) O2 SATURATION VENOUS (BEAKER) 89.4 % 40.0-70.0 H (test code = 703) HCO3 VENOUS (BEAKER) (test code = 21 mmol/L -29 705) BASE EXCESS VENOUS (BEAKER) (test -4.5 mmol/L -2.0-3.0 L code = 704) PATIENT TEMPERATURE (BEAKER) 37.0 (test code = 1818) FIO2 (LIA) (test code = 1819) 21.0 ECG/EKG [id number] 23:15:17Cherie Faustin MD 05/05/2021 2:11 AMECG/EKG Interpretation Date/Time: 05/04/2021 11:26 PMPerformed by: Cherie Faustin MDAuthorized by: Cherie Faustin MD The ECG was interpreted by ED physician. The ECG is interpreted as sinus rhythm. Rate is normal rate. Heart rate is 91 BPM.ST segments normal.T-wave inversion in lead(s) V1 and V2. Clinical Impression: normal ECGCH[facility] RosaECG/[facility] Interpretation 2021-05-04 23:15:17Cherie Faustin MD 05/05/2021 2:11 AMECG/EKG Interpretation Date/Time: 05/04/2021 11:26 PMPerformed by: Cherie Faustin MDAuthorized by: Cherie Faustin MD The ECG was interpreted by ED physician. The ECG is interpreted as sinus rhythm. Rate is normal rate. Heart rate is 91 BPM.ST segments normal.T-wave inversion in lead(s) V1 and V2. Clinical Impression: normal ECGCHI [facility] RosaECG/EKG [id number] 23:15:17 Cherie Faustin MD 05/05/2021 2:11 AMECG/EKG Interpretation Date/Time: 05/04/2021 11:26 PMPerformed by: Cherie Faustin MDAuthorized by: Cherie Faustin MD The ECG was interpreted by ED physician. The ECG is interpreted as sinus rhythm. Rate is normal rate. Heart rate is 91 BPM.ST segments normal.T- wave inversion in lead(s) V1 and V2. Clinical Impression: normal ECGCHI [facility] RosaECG/EKG [id number] 23:15:17Cherie Faustin MD 05/05/2021 2:11 AMECG/EKG Interpretation Date/Time: 05/04/2021 11:26 PMPerformed b y: Cherie Faustin MDAuthorized by: Cherie Faustin MD The ECG was interpreted by ED physician. The ECG is interpreted as sinus rhythm. Rate is normal rate. Heart rate is 91 BPM.ST segments normal.T-wave inversion in lead(s) V1 and V2. Clinical Impression: normal ECGK[facility] CenterHEPATIC FUNCTION [id number] 22:01:00 Test Item Value Reference Range Interpretation [...] Specimen moderately (test code = 347) hemolyzed Home Worker ID - DPWhktqbr6194-33-79 21:53:00 Test Item Value Reference Range Interpretation Comments Amylase (test code = 143 U/L 25-125 H Specime n 1798-8) markedly hemolyzed TORRES (test code = TORRES) Home Worker ID - DB Lab Interpretation Abnormal (test code = 84768-1) [facility]21-[facility] 21:53:00 Test Item Value Reference Range Interpretation Comments Lipase (test code = 3040-3) 97 U/L 8-78 H TORRES (test code = TORRES) Home Worker ID - DB Lab Interpretation (test Abnormal code = 91953-2) [facility] CenterAmylase2021-08-23 21:53:00 Test Item Value Reference Range Interpretation Comments Amylase (test code = 143 U/L 25-125 H Specime n 1798-8) markedly hemolyzed TORRES (test code = TORRES) Home Worker ID - DB Lab Interpretation Abnormal (test code = 69667-0) [facility] Center[facility]2021-[facility] 21:53:00 Test Item Value Reference Range Interpretation Comments Lipase (test code = 3040-3) 97 U/L 8-78 H TORRES (test code = TORRES) Home Worker ID - DB Lab Interpretation (test Abnormal code = 58250-3) [facility] CenterAmylase2021-08-23 21:53:00 Test Item Value Reference Range Interpretation Comments Amylase (test code = 143 U/L 25-125 H Specime n 1798-8) markedly hemolyzed TORRES (test code = TORRES) Home Worker ID - DB Lab Interpretation Abnormal (test code = 92853-6) [facility] CenterLip[facility]2021-08-[facility] 21:53:00 Test Item Value Reference Range Interpretation Comments Lipase (test code = 3040-3) 97 U/L 8-78 H TORRES (test code = TORRES) Home Worker ID - DB Lab Interpretation (test Abnormal code = 98571-1) [facility] 21[facility]53:00 Test Item Value Reference Range Interpretation Comments Amylase (test code = 143 U/L 25-125 H Specime n 1798-8) markedly hemolyzed TORRES (test code = TORRES) Home Worker ID - DB Lab Interpretation Abnormal (test code = 08303-4) [facility] 21:53:00 Test Item Value Reference Range Interpretation Comments Lipase (test code = 3040-3) 97 U/L 8-78 H TORRES (test code = TORRES) Home Worker ID - DB Lab Interpretation (test Abnormal code = 74440-0) [facility] Center[facility]OLIC [id number] 21:53:00 Test Item Value Reference Range Interpretation [...] S NOT APPLICABLE FOR DIALYSIS PATIEN TS. Home Worker ID - [id number] 21:53:00 Test Item Value Reference Range Interpretation Comments AMYLASE (BEAKER) (test 143 U/L 25-125 H Speci men markedly code = 349) hemolyzed Home Worker ID - [id number] 21:53:00 Test Item Value Reference Range Interpretation Comments LIPASE (BEAKER) (test code = 749) 97 U/L 8-78 H Home Worker ID - DBCBC W/PLT COUNT & AUTO [id number] 19:51:00 Test Item Value Reference Range Interpretation [...] PERCENT (BEAKER) (test code = 2801) POC-Glucose [id number] 08:41:00 Test Item Value Reference Range Interpretation Comments POC-Glucose Meter (test 104 mg/dL 70-110 : TE STED AT [facility] code = 1538) [address] [place] [address], [facility] 30: Home Worker/Techni aldo ID = [id number] for HUSSEIN LEMON Lab Interpretation (test Normal code = 57392-9) [facility]-Glucose [id number] 08:41:00 Test Item Value Reference Range Interpretation Comments POC-Glucose Meter (test 104 mg/dL 70-110 : TE STED AT [facility] code = 1538) [address] [place] [address], [facility] 30: Home Worker/Techni aldo ID = [id number] for LEMON HUSSEIN Lab Interpretation (test Normal code = 77370-7) [facility]-Glucose [id number] 08:41:00 Test Item Value Reference Range Interpretation Comments POC-Glucose Meter (test 104 mg/dL 70-110 : TE STED AT [facility] code = 1538) [address] [place] [address], 770 30: Home Worker/Techni aldo ID = [id number] for HUSSEIN LEMON Lab Interpretation (test Normal code = 41231-2) [facility]-Glucose [id number] 08:41:00 Test Item Value Reference Range Interpretation Comments POC-Glucose Meter (test 104 mg/dL 70-110 : TE STED AT [facility] code = 1538) [address] [place], [address] 30: Home Worker/Techni aldo ID = [id number] for HUSSEIN LEMON Lab Interpretation (test Normal code = 08455-5) [facility]-GLUCOSE [id number] 08:41:00 Test Item Value Reference Range Interpretation Comments POC-GLUCOSE METER 104 mg/dL 70-110 : TESTED A T [facility] 6720 (BEAKER) (test code = [place] [facility], 1538) [address]: Home Worker/Techni aldo ID = [id number] for HUSSEIN DAVID Comprehensive metabolic [id number] 06:49:00 Test Item Value Reference Range Interpretation Comments Protein, Total (test 6.8 See_Comment [Autom ated code = 2885-2) message] The system which generated this result transmit lane reference range : 6.0 - 8.3 gm/dL . The reference range was not u sed to interpret th is result as normal/abnormal . Albumin (test code = 3.5 g/dL 3.5-5 08879-2) Alkaline Phosphatase 44 U/L 40-150 (test code = 6768-6) Total Bilirubin (test 0.3 mg/dL 0.2-1.2 code = 1975-2) Sodium (test code = 139 meq/L 242-945 8925-2) Potassium (test code 3.8 meq/L 3.5-5.1 = 2823-3) Chloride (test code = 104 meq/L 98-107 5-0) CO2 (test code = 27 meq/L 22-29 2027-9) BUN (test code = 12 mg/dL 7-21 3094-0) Creatinine (test code 1.05 mg/dL 0.57-1.25 = 2160-0) Glucose (test code = 79 mg/dL 70-105 2345-7) Calcium (test code = 8.4 mg/dL 8.4-10.2 73519-0) AST (test code = 49 U/L 5-34 H 1920-8) ALT (test code = 41 U/L -55 1742-6) EGFR (test code = 52 mL/min/1.[address] [place] [address]-0) NOT ACCURATE CREATININE CLEARANCE IN PREDICTING GLOMERULAR FILTRATION RATE . ESTIMATED GFR I S NOT APPLICABLE FOR DIALYSIS PATIEN TS. MACDONALD (test code = TORRES) Home Worker ID - HUMBLE M Lab Interpretation Abnormal (test code = 09236-2) [facility] CenterComprehensive metabolic [id number] 06:49:00 Test Item Value Reference Range Interpretation Comments Protein, Total (test 6.8 See_Comment [Autom ated code = 2885-2) message] The system which generated this result transmit lane reference range : 6.0 - 8.3 gm/dL . The reference range was not u sed to interpret th is result as normal/abnormal . Albumin (test code = 3.5 g/dL 3.5-5 58110-1) Alkaline Phosphatase 44 U/L 40-150 (test code = 6768-6) Total Bilirubin (test 0.3 mg/dL 0.2-1.2 code = 1974-2) Sodium (test code = 139 meq/L 298-413 3784-2) Potassium (test code 3.8 meq/L 3.5-5.1 = 2823-3) Chloride (test code = 104 meq/L 98-107 2075-0) CO2 (test code = 27 meq/L 22-29 8-9) BUN (test code = 12 mg/dL 7- 3094-0) Creatinine (test code 1.05 mg/dL 0.57-1.25 = 2160-0) Glucose (test code = 79 mg/dL 70-105 2345-7) Calcium (test code = 8.4 mg/dL 8.4-10.2 76339-3) AST (test code = 49 U/L 5-34 H 1920-8) ALT (test code = 41 U/L -55 1742-6) EGFR (test code = 52 mL/min/1.[address] [place] [address]-5) NOT ACCURATE CREATININE CLEARANCE IN PREDICTING GLOMERULAR FILTRATION RATE . ESTIMATED GFR I S NOT APPLICABLE FOR DIALYSIS PATIEN TS. TORRES (test code = TORRES) Home Worker ID - HUMBLE M Lab Interpretation Abnormal (test code = 85629-1) [facility] CenterComprehenve metabolic [id number] 06:49:00 Test Item Value Reference Range Interpretation Comments Protein, Total (test 6.8 See_Comment [Autom ated code = 2885-2) message] The system which generated this result transmit lane reference range : 6.0 - 8.3 gm/dL . The reference range was not u sed to interpret th is result as normal/abnormal . Albumin (test code = 3.5 g/dL 3.5-5 02493-3) Alkaline Phosphatase 44 U/L 40-150 (test code = 6768-6) Total Bilirubin (test 0.3 mg/dL 0.2-1.2 code = 1975-2) Sodium (test code = 139 meq/L 058-844 8117-2) Potassium (test code 3.8 meq/L 3.5-5.1 = 2823-3) Chloride (test code = 104 meq/L 98-107 2075-0) CO2 (test code = 27 meq/L 22-29 2028-9) BUN (test code = 12 mg/dL 7-21 3094-0) Creatinine (test code 1.05 mg/dL 0.57-1.25 = 2160-0) Glucose (test code = 79 mg/dL 70-105 2345-7) Calcium (test code = 8.4 mg/dL 8.4-10.2 02909-6) AST (test code = 49 U/L 5-34 H 1920-8) ALT (test code = 41 U/L 6-55 1742-6) EGFR (test code = 52 mL/min/1.[address] [place] [address]-8) NOT ACCURATE CREATININE CLEARANCE IN PREDICTING GLOMERULAR FILTRATION RATE . ESTIMATED GFR I S NOT APPLICABLE FOR DIALYSIS PATIEN TS. TORRES (test code = TORRES) Home Worker ID - HUMBLE M Lab Interpretation Abnormal (test code = 67466-1) [facility] CenterComprehensive metabolic [id number] 06:49:00 Test Item Value Reference Range Interpretation Comments Protein, Total (test 6.8 See_Comment [Autom ated code = 2885-2) message] The system which generated this result transmit lane reference range : 6.0 - 8.3 gm/dL . The reference range was not u sed to interpret th is result as normal/abnormal . Albumin (test code = 3.5 g/dL 3.5-5 81491-5) Alkaline Phosphatase 44 U/L 40-150 (test code = 6768-6) Total Bilirubin (test 0.3 mg/dL 0.2-1.2 code = 1974-2) Sodium (test code = 139 meq/L 662-908 4822-2) Potassium (test code 3.8 meq/L 3.5-5.1 = 2823-3) Chloride (test code = 104 meq/L 98-107 2075-0) CO2 (test code = 27 meq/L 22-29 8-9) BUN (test code = 12 mg/dL 7-21 3094-0) Creatinine (test code 1.05 mg/dL 0.57-1.25 = 2160-0) Glucose (test code = 79 mg/dL 70-105 2345-7) Calcium (test code = 8.4 mg/dL 8.4-10.2 82630-6) AST (test code = 49 U/L 5-34 H 1920-8) ALT (test code = 41 U/L 6-55 1742-6) EGFR (test code = 52 mL/min/1.[address] [place] [address]-1) NOT ACCURATE CREATININE CLEARANCE IN PREDICTING GLOMERULAR FILTRATION RATE . ESTIMATED GFR I S NOT APPLICABLE FOR DIALYSIS PATIEN TS. TORRES (test code = TORRES) Home Worker ID - HUMBLE M Lab Interpretation Abnormal (test code = 43036-2) [facility] CenterCOMPREHENSIVE METABOLIC [id number] 06:49:00 Test Item Value Reference Range Interpretation [...] S NOT APPLICABLE FOR DIALYSIS PATIEN TS. Home Worker ID - HUMBLE MPOCT-GLUCOSE [id number] 16:54:00 Test Item Value Reference Range Interpretation Comments POC-GLUCOSE METER 171 mg/dL 70-110 H : TESTED A T [facility] 6720 (BEAKER) (test code = [place], 1538) [address]: Home Worker/Techni aldo ID = [id number] for ALBINO GONZALEZ Hemoglobin [id number] 15:22:00 Test Item Value Reference Range Interpretation Comments Hemoglobin A1C (test code = 4548-4) 6.2 % 4.3-6.1 H Lab Interpretation (test code = Abnormal 96365-4) [facility] CenterHemoglobin [id number] 15:22:00 Test Item Value Reference Range Interpretation Comments Hemoglobin A1C (test code = 4548-4) 6.2 % 4.3-6.1 H Lab Interpretation (test code = Abnormal 15059-7) [facility] CenterHemoglobin [id number] 15:22:00 Test Item Value Reference Range Interpretation Comments Hemoglobin A1C (test code = 4548-4) 6.2 % 4.3-6.1 H Lab Interpretation (test code = Abnormal 70193-0) [facility] CenterHemoglobin [id number] 15:22:00 Test Item Value Reference Range Interpretation Comments Hemoglobin A1C (test code = 4548-4) 6.2 % 4.3-6.1 H Lab Interpretation (test code = Abnormal 50421-7) [facility] CenterHEMOGLOBIN [id number] 15:22:00 Test Item Value Reference Range Interpretation Comments HEMOGLOBIN A1C (BEAKER) (test code = 6.2 % 4.3-6.1 H 368) POCT-GLUCOSE [id number] 12:56:00 Test Item Value Reference Range Interpretation Comments POC-GLUCOSE METER 93 mg/dL 70-110 : Notified RN/MD: TESTED (BEAKER) (test code = AT [facility] 67[address] [facility] 1538) [facility], [facility] 30: Home Worker/Techni aldo ID = [id number] for Onesimom Arely gorman [place], [id number] 12:02:00Reason for exam:->ERCP tomorrow [facility] : 1950 Sex: FFluoroscopic unit utilized for a procedure performed in the OR. No interpretation was requested. Refer to theoperative report for findings. Refer to PACS for patient radiation dose information.[facility] Endoscopic Retrograde [id number] 12:02:00Interface, External Ris In - 03/10/2021 12:18 PM CDTFluoroscopic unit utilized for a procedure performed in the OR. No interpretation was requested. Refer to the operative report for findings. Refer toPACS for patient radiation dose information.[facility] Endoscopic Retrograde Grpuiwryeqcadbopfqhyheio3909-18-85 12:02:00Interface, External Ris In - 03/10/2021 12:18 PM CDTFluoroscopic unit utilized for a procedure performed in the OR. No interpretation was requested. Refer to the operative report for findings. Refer toPACS for patient radiation dose information.[facility] Endoscopic Retrograde [id number] 12:02:00Interface, External Ris In 03/10/2021 12:18 PM CDTFluoroscopic unit utilized for a procedure performed in the OR. No interpretation was requested. Refer to the operative report for findings. Refer toPACS for patient radiation dose information.[facility] Endoscopic Retrograde Uvciguhjzejutnzwblesbyfa6433-69-59 12:02:00Interface, External Ris In 03/10/2021 12:18 PM CDTFluoroscopic unit utilized for a procedure performed in the OR. No interpretation was requested. Refer to the operative report for findings. Refer toPACS for patient radiation dose information.[facility] CenterPOCT-GLUCOSE [id number] 09:27:00 Test Item Value Reference Range Interpretation Comments POC-GLUCOSE METER 74 mg/dL 70-110 : TESTED A T [facility] 6720 (BEAKER) (test code = [place] [facility], 1538) [address]: Home Worker/Techni aldo ID = [id number] for ALBINO ROSS COMPREHENSIVE METABOLIC [id number] 05:49:00 Test Item Value Reference Range Interpretation [...] S NOT APPLICABLE FOR DIALYSIS PATIEN TS. Home Worker ID - HUMBLE [facility] (Hemogram only)2021-03-10 05:10:00 Test Item Value Reference Range Interpretation Comments WBC (test code = 6690-2) 9.1 See_Comment [A utomated message] The system [employer] generated this result transmitted ref erence range: 3.5 - 10 .5 K/L. The refe rence range was not u sed to interpret this result as normal/abnor mal. RBC (test code = 789-8) 3.57 See_Comment L [Au tomated message] The system [employer] generated this result transmitted ref erence range: 3.93 - 5 .22 M/L. The refe rence range was not u sed to interpret this result as normal/abnor mal. MCHC (test code = 786-4) 30.9 See_Comment L [A utomated message] The system [employer] generated this result transmitted ref erence range: [...] See_Comment [Aut omated message] 777-3) The system [employer] generated this result transmitted ref erence range: 150 - 45 0 K/CU MM. The referen ce range was not u sed to interpret this result as normal/abnor mal. MPV (test code = 9.3 fL 9.4-12.3 L 20592-7) nRBC (test code = 413) 0 See_Comment [Aut omated message] The system [employer] generated this result transmitted ref erence range: 0 - 0 /1 00 WBC. The refere nce range was not u sed to interpret this result as normal/abnor mal. Lab Interpretation (test Abnormal code = 48364-9) [facility] (Hemogram only)2021-03-10 05:10:00 Test Item Value Reference Range Interpretation Comments WBC (test code = 6690-2) 9.1 See_Comment [A utomated message] The system [employer] generated this result transmitted ref erence range: 3.5 - 10 .5 K/L. The refe rence range was not u sed to interpret this result as normal/abnor mal. RBC (test code = 789-8) 3.57 See_Comment L [Au tomated message] The system [employer] generated this result transmitted ref erence range: 3.93 - 5 .22 M/L. The refe rence range was not u sed to interpret this result as normal/abnor mal. MCHC (test code = 786-4) 30.9 See_Comment L [A utomated message] The system [employer] generated this result transmitted ref erence range: [...] code = 278 See_Comment [Aut omated message] 187-3) The system [employer] generated this result transmitted ref erence range: 150 - 45 0 K/CU MM. The referen ce range was not u sed to interpret this result as normal/abnor mal. MPV (test code = 9.3 fL 9.4-12.3 L 59344-7) nRBC (test code = 413) 0 See_Comment [Aut omated message] The system [employer] generated this result transmitted ref erence range: 0 - 0 /1 00 WBC. The refere nce range was not u sed to interpret this result as normal/abnor mal. Lab Interpretation (test Abnormal code = 30784-1) [facility]2021-03-10 05:10:00 Test Item Value Reference Range Interpretation Comments WBC (test code = 6690-2) 9.1 See_Comment [A utomated message] The system [employer] generated this result transmitted ref erence range: 3.5 - 10 .5 K/L. The refe rence range was not u sed to interpret this result as normal/abnor mal. RBC (test code = 789-8) 3.57 See_Comment L [Au tomated message] The system [employer] generated this result transmitted ref erence range: 3.93 - 5 .22 M/L. The refe rence range was not u sed to interpret this result as normal/abnor mal. MCHC (test code = 786-4) 30.9 See_Comment L [A utomated message] The system [employer] generated this result transmitted ref erence range: [...] code = 278 See_Comment [Aut omated message] 957-3) The system [employer] generated this result transmitted ref erence range: 150 - 45 0 K/CU MM. The referen ce range was not u sed to interpret this result as normal/abnor mal. MPV (test code = 9.3 fL 9.4-12.3 L 09009-9) nRBC (test code = 413) 0 See_Comment [Aut omated message] The system [employer] generated this result transmitted ref erence range: 0 - 0 /1 00 WBC. The refere nce range was not u sed to interpret this result as normal/abnor mal. Lab Interpretation (test Abnormal code = 54533-5) [facility] (Hemogram only)2021-03-10 05:10:00 Test Item Value Reference Range Interpretation Comments WBC (test code = 6690-2) 9.1 See_Comment [A utomated message] The system [employer] generated this result transmitted ref erence range: 3.5 - 10 .5 K/L. The refe rence range was not u sed to interpret this result as normal/abnor mal. RBC (test code = 789-8) 3.57 See_Comment L [Au tomated message] The system [employer] generated this result transmitted ref erence range: 3.93 - 5 .22 M/L. The refe rence range was not u sed to interpret this result as normal/abnor mal. MCHC (test code = 786-4) 30.9 See_Comment L [A utomated message] The system [employer] generated this result transmitted ref erence range: [...] See_Comment [Aut omated message] 777-3) The system [employer] generated this result transmitted ref erence range: 150 - 45 0 K/CU MM. The referen ce range was not u sed to interpret this result as normal/abnor mal. MPV (test code = 9.3 fL 9.4-12.3 L 77562-6) nRBC (test code = 413) 0 See_Comment [Aut omated message] The system [employer] generated this result transmitted ref erence range: 0 - 0 /1 00 WBC. The refere nce range was not u sed to interpret this result as normal/abnor mal. Lab Interpretation (test Abnormal code = 28451-7) [facility] (HEMOGRAM ONLY)2021-03-10 05:10:00 Test Item [...] 0-0 (BEAKER) (test code = 413) POCT-GLUCOSE [id number] 00:05:00 Test Item Value Reference Range Interpretation Comments POC-GLUCOSE METER 83 mg/dL 70-110 : TESTED [place] T [facility] 6720 (LIA) (test code = [place], 1538) [address]: Home Worker/Techni aldo ID = [id number] for BRENDA VENCES SARS-COV2/RT-PCR ([facility])2021-03-09 23:58:00 Test Item Value Reference Range Interpretation Comments SARS-COV2/RT-PCR (test Negative Not Detected, Negative, code = 6552512) See external report for linked test SARS-COV-2 PERFORMING LAB [facility] SHIV (test code = 0458083) Negative result for this test determines that [...] individuals suspected of COVID-19 by their healthcare provider.This test [...] justifying the authorization of the emergency use ofin vitro diagnostic tests for detection and/or diagnosis of COVID-19 is terminated under Section 564(b)(2) of the Act or the EUA is revoked under Section 564(g) of the Act.Fact Sheet for Healthcare Prov iders:https://www.[employer]/sites/default/files/product/documents/Fact_Sheet_HC _Hbbpkvlka_Brcw_UAKQ-RzT-2.pdfFact Sheet for Healthcare Patients:https://www.[employer]/sites/default/files/product/docume nts/Qowt_Ltxks_Unfxrswv_Chce_BOPI-SxB-6.pdfPerforming Laboratory:[facility], [place] [address]FRWK-HZTZZWX METER 2021-03-09 17:34:00 Test Item Value Reference Range Interpretation Comments POC-GLUCOSE METER 97 mg/dL 70-110 : TESTED A T [facility] 6720 (BEAKER) (test code = [place] [facility], 1538) [address]: Home Worker/Techni aldo ID = [id number] for ALBINO ROSS MR, ABDOMEN, [id number] 17:11:00Unlisted Reason for Exam - Click Yes and Enter Reason Below->NoPatient with hyperdense material seen in distal CBD on CTA [facility] : 1950 Sex: FFINAL REPORT MR, ABDOMEN, MRCP HISTORY: Biliary obstruction suspected COMPARISON: CT abdomen 12/29/2005 TECHNIQUE: MRI of the abdomen with exam tailored to evaluate the biliary tree and the pancreas. Multiplanar, multisequence images, including heavily T2-weighted MRCP sequences were obtaine d. FINDINGS: Bile ducts: Moderate intra and extrahepatic biliary ductal dilation with a T1 hyperintense T2 hypointense filling defect in the distal common bile duct measuring 11 mm.Liver: Diffuse signal loss from the in-phase to opposed- phase images, compatible with steatosis.Gallbladder: The gallbladder is surgically absent.Pancreas: Unremarkable. Additional Findings:Lung bases: Trace bilateral pleural effusions. Trace pericardial effusion..Spleen: UnremarkableAdrenals: UnremarkableKidneys and ureters: Unremarkable.Bowel: Small periampullary duodenal diverticulum. Nondilated bowel with no wall thic kening.Lymph nodes: Unremarkable.Peritoneum: Unremarkable.Vessels: UnremarkableAbdominal wall: Unremarkable.Bones: Mild compression deformity at L1 without marrow edema. IMPRESSION: A T1 hyperintense filling defect in the common bile duct, most likely a pigmented gallstone. Moderate intra and extrahepatic biliary ductal dilation. Hepatic steatosis. A mild compression deformity at L1 is new since CT 12/29/2005 but appears chronic Signed: Ashely Peralta MDReport Verified Date/Time: 03/09/2021 17:11:18 Reading Location: [address] Transitional Reading Room MR abdomen without IV contrast [id number] 17:11:00 Interface, External Ris In - 03/09/2021 5:13 PM CDTFINAL REPORT MR, ABDOMEN, MRCP HISTORY: Biliary obstruction suspected COMPARISON: CT abdomen 12/29/2005 TECHNIQUE: MRI of the abdomen with exam tailored to evaluate the biliary tree and the pancreas. Multiplanar, multisequence images, including heavily T2-weighted MRCP sequences were obtained. FINDINGS: Bile ducts: Moderate intraand extrahepatic biliary ductal dilation with a T1 hyperintense T2 hypointense filling defect in thedistal common bile duct measuring 11 mm.Liver: Diffuse [...] CT 12/29/2005 but appears chronic Signed: Ashely Peralta MDReport Verified Date/Time: 03/09/2021 17:11:18 Reading Location: [address] Transitional Reading Room [facility] [id number] 17:11:00 Interface, External Ris In - 03/09/2021 5:13 PM CDTFINAL REPORT MR, ABDOMEN, MRCP HISTORY: Biliary obstruction [...] Diffuse signal loss from the in-phase to opposed-phaseimages, compatible with steatosis.Gallbladder: The gallbladder is surgically absent.Pancreas: Unremar kable. Additional Findings:Lung bases: Trace bilateral pleural effusions. Trace pericardial effusion..Spleen: UnremarkableAdrenals: UnremarkableKidneys and ureters: Unremarkable.Bowel: Small periampullary duodenal diverticulum. Nondilated bowel with no wall thickening.Lymph nodes: Unremarkable.Peritoneum: Unremarkable.Vessels: UnremarkableAbdominal wall: Unremarkable.Bones: Mild compression deformityat L1 without marrow edema. IMPRESSION: A T1 hyperintense filling defect in the common bile duct, most likely a pigmented gallstone. Moderate intra and extrahepatic biliary ductal dilation. Hepatic steatosis. A mild compression deformity at L1 is new since CT 12/29/2005 but appears chronic Signed: Ashely Peralta MDReport Verified Date/Time: 03/09/2021 17:11:18 Reading Location: [facility] C013T Transitional Reading Room [facility]MR [facility] without IV contrast [id number] 17:11:00Interface, External Ris In - 03/09/2021 5:13 PM CDTFINAL REPORT MR, ABDOMEN, MRCP HISTORY: Biliary obstruction suspected COMPARISON: CT abdomen 12/29/2005 TECHNIQUE: MRI of the abdomen with exam tailored to evaluate the biliary tree and the pancreas. Multiplanar, multisequence images, including heavily T2- weighted MRCP sequences were obtained. FINDINGS: Bile ducts: Moderate intra and extrahepatic biliary ductal dilation with a T1 hyperintense T2 hypointense filling defect in the distal common bile duct measuring 11 mm.Liver: Diffuse signal loss from the in-phase to opposed-phaseimages, compatible with steatosis.Gallbladder: The gallbladder is surgically absent.Pancreas: Unremar kable. Additional Findings:Lung bases: Trace bilateral pleural effusions. Trace pericardial effusion..Spleen: UnremarkableAdrenals: UnremarkableKidneys and ureters: Unremarkable.Bowel: Small periampullary duodenal diverticulum. Nondilated bowel with no wall thickening.Lymph nodes: Unremarkable.Peritoneum: Unremarkable.Vessels: UnremarkableAbdominal wall: Unremarkable.Bones: Mild compression deformityat L1 without marrow edema. IMPRESSION: A T1 hyperintense filling defect in the common bile duct, most likely a pigmented gallstone. Moderate intra and extrahepatic biliary ductal dilation. Hepatic steatosis. A mild compression deformity at L1 is new since CT 12/29/2005 but appears chronic Signed: Ashely Peralta MDReport Verified Date/Time: 03/09/2021 17:11:18 Reading Location: [address] Transitional Reading [facility] [id number] 17:11:00Interface, External Ris In - 03/09/2021 5:13 PM CDTFINAL REPORT MR, ABDOMEN, MRCP HISTORY: Biliary obstruction suspected COMPARISON: CT abdomen 12/29/2005 TECHNIQUE: MRI of the abdomen with exam tailored to evaluate the biliary tree and the pancreas. Multiplanar, multisequence images, including heavily T2- weighted MRCP sequences were obtained. FINDINGS: Bile ducts: Moderate intra and extrahepatic biliary ductal dilation with a T1 hyperintense T2 hypointense filling defect in the distal common bile duct measuring 11 mm.Liver: Diffuse signal loss from the in-phase to opposed-phaseimages, compatible with steatosis.Gallbladder: The gallbladder is surgically absent.Pancreas: Unremar kable. Additional Findings:Lung bases: Trace bilateral pleural effusions. Trace pericardial effusion..Spleen: UnremarkableAdrenals: UnremarkableKidneys and ureters: Unremarkable.Bowel: Small periampullary duodenal diverticulum. Nondilated bowel with no wall thickening.Lymph nodes: Unremarkable.Peritoneum: Unremarkable.Vessels: UnremarkableAbdominal wall: Unremarkable.Bones: Mild compression deformityat L1 without marrow edema. IMPRESSION: A T1 hyperintense filling defect in the common bile duct, most likely a pigmented gallstone. Moderate intra and extrahepatic biliary ductal dilation. Hepatic steatosis. A mild compression deformity at L1 is new since CT 12/29/2005 but appears chronic Signed: Ashely Peraltaeport Verified Date/Time: 03/09/2021 17:11:18 Reading Location: [address] Transitional Reading Room [facility] CenterPOCT-GLUCOSE [id number] 12:41:00 Test Item Value Reference Range Interpretation Comments POC-GLUCOSE METER 92 mg/dL 70-110 : TESTED A T [facility] 6720 (BEAKER) (test code = [facility], 1538) [address]18: Home Worker/Techni aldo ID = [id number] for TEZE NO, ALBINO Urinalysis w/Microscopic + Reflex to [id number] 11:21:00 Test Item Value Reference Range Interpretation Comments Color, UA (test code Light Yellow = 5778-6) Clarity, UA (test Clear code = 5767-9) Specific [place], UA 1.033 1.001-1.035 (test code = 5811-5) pH, UA (test code = 5.5 5.0-8.0 5803-2) Protein, UA (test Negative Negative code = 55273-2) Glucose, UA (test Negative Negative code = 365) Ketones, UA (test Negative Negative code = 2514-8) Bilirubin, UA (test Negative Negative code = 14528-7) Blood, UA (test code Trace Negative A = 89254-6) Nitrite, UA (test Negative Negative code = 5802-4) Leukocytes, UA (test Negative Negative code = 5799-2) Urobilinogen, UA 0.2 mg/dL 0.2-1 (test code = 22334-1) RBC, UA (test code = 2 See_Comment [Autom ated 89973-3) message] The system which generated this result [...] Bacteria, UA (test None Seen code = 18050-9) Mucus (test code = Rare 8247-9) Squam Epithel, UA 1 See_Comment [Automate d (test code = 53952-2) messag e] The system which generated this result transmit lane reference range : /HPF. The reference range was not used to interpret this result as normal/abnormal . Crystals, Urine (test None Seen code = 81914-8) Specimen Source (test code = 2795) TORRES (test code = TORRES) Home Worker ID - [auto]Home Worker ID - tech Lab Interpretation Abnormal (test code = 50802-5) [facility] Reflex to Culture 2021-03-09 11:21:00 Test Item Value Reference Range Interpretation Comments Color, UA (test code Light Yellow = 5778-6) Clarity, UA (test Clear code = 5767-9) Specific [place], UA 1.033 1.001-1.035 (test code = 5811-5) pH, UA (test code = 5.5 5.0-8.0 5803-2) Protein, UA (test Negative Negative code = 59675-0) Glucose, UA (test Negative Negative code = 365) Ketones, UA (test Negative Negative code = 2514-8) Bilirubin, UA (test Negative Negative code = 41094-5) Blood, UA (test code Trace Negative A = 12018-5) Nitrite, UA (test Negative Negative code = 5802-4) Leukocytes, UA (test Negative Negative code = 5799-2) Urobilinogen, UA 0.2 mg/dL 0.2-1 (test code = 21527-7) RBC, UA (test code = 2 See_Comment [Autom ated 00367-1) message] The system which generated this result [...] Bacteria, UA (test None Seen code = 52451-8) Mucus (test code = Rare 8247-9) Squam Epithel, UA 1 See_Comment [Automate d (test code = 98732-5) messag e] The system which generated this result transmit lane reference range : /HPF. The reference range was not used to interpret this result as normal/abnormal . Crystals, Urine (test None Seen code = 89881-3) Specimen Source (test code = 2795) TORRES (test code = TORRES) Home Worker ID - [auto]Home Worker ID - tech Lab Interpretation Abnormal (test code = 10264-3) [facility] + Reflex to Culture 2021-03-09 11:21:00 Test Item Value Reference Range Interpretation Comments Color, UA (test code Light Yellow = 5778-6) Clarity, UA (test Clear code = 5767-9) Specific [place], UA 1.033 1.001-1.035 (test code = 5811-5) pH, UA (test code = 5.5 5.0-8.0 5803-2) Protein, UA (test Negative Negative code = 56187-2) Glucose, UA (test Negative Negative code = 365) Ketones, UA (test Negative Negative code = 2514-8) Bilirubin, UA (test Negative Negative code = 01847-1) Blood, UA (test code Trace Negative A = 03631-5) Nitrite, UA (test Negative Negative code = 5802-4) Leukocytes, UA (test Negative Negative code = 5799-2) Urobilinogen, UA 0.2 mg/dL 0.2-1 (test code = 05137-2) RBC, UA (test code = 2 See_Comment [Autom ated 33120-2) message] The system which generated this result [...] Bacteria, UA (test None Seen code = 37971-5) Mucus (test code = Rare 8247-9) Squam Epithel, UA 1 See_Comment [Automate d (test code = 52144-4) messag e] The system which generated this result transmit lane reference range : /HPF. The reference range was not used to interpret this result as normal/abnormal . Crystals, Urine (test None Seen code = 76525-1) Specimen Source (test code = 2795) TORRES (test code = TORRES) Home Worker ID - [auto]Home Worker ID - tech Lab Interpretation Abnormal (test code = 41758-2) [facility]/Micro[facility]opic + Reflex to Culture 2021-03-09 11:21:00 Test Item Value Reference Range Interpretation Comments Color, UA (test code Light Yellow = 5778-6) Clarity, UA (test Clear code = 5767-9) Specific [place], UA 1.033 1.001-1.035 (test code = 5811-5) pH, UA (test code = 5.5 5.0-8.0 5803-2) Protein, UA (test Negative Negative code = 85545-1) Glucose, UA (test Negative Negative code = 365) Ketones, UA (test Negative Negative code = 2514-8) Bilirubin, UA (test Negative Negative code = 74303-1) Blood, UA (test code Trace Negative A = 93488-9) Nitrite, UA (test Negative Negative code = 5802-4) Leukocytes, UA (test Negative Negative code = 5799-2) Urobilinogen, UA 0.2 mg/dL 0.2-1 (test code = 89856-6) RBC, UA (test code = 2 See_Comment [Autom ated 12538-5) message] The system which generated this result [...] Bacteria, UA (test None Seen code = 65141-8) Mucus (test code = Rare 8247-9) Squam Epithel, UA 1 See_Comment [Automate d (test code = 67755-6) silverioag e] The system which generated this result transmit lane reference range : /HPF. The reference range was not used to interpret this result as normal/abnormal . Crystals, Urine (test None Seen code = 87290-3) Specimen Source (test code = 2795) TORRES (test code = TORRES) Home Worker ID - [auto]Home Worker ID - tech Lab Interpretation Abnormal (test code = 09912-1) [facility]/ REFLEX URINE [id number] 11:21:00 Test Item Value Reference Range Interpretation [...] = 1521) SOURCE(BEAKER) (test code = 2795) Home Worker ID - [auto]Home Worker ID - techHEMOGLOBIN [id number] 10:22:00 Test Item Value Reference Range Interpretation Comments HEMOGLOBIN A1C (BEAKER) (test code = 6.1 % 4.3-6.1 368) [id number] 06:48:00 Test Item Value Reference Range Interpretation Comments Magnesium (test code = 2.1 mg/dL 1.6-2.6 68351-9) TORRES (test code = TORRES) Home Worker ID - ELVIN W Lab Interpretation (test Normal code = 28274-7) [facility] CenterMagnesium2021-06-28 06:48:00 Test Item Value Reference Range Interpretation Comments Magnesium (test code = 2.1 mg/dL 1.6-2.6 59188-0) TORRES (test code = TORRES) Home Worker ID - ELVIN W Lab Interpretation (test Normal code = 34524-0) [facility]2021-06-28 06:48:00 Test Item Value Reference Range Interpretation Comments Magnesium (test code = 2.1 mg/dL 1.6-2.6 35526-7) TORRES (test code = TORRES) Home Worker ID - ELVIN W Lab Interpretation (test Normal code = 31810-6) [facility] Center[facility]esium2021-06-28 06:48:00 Test Item Value Reference Range Interpretation Comments Magnesium (test code = 2.1 mg/dL 1.6-2.6 62268-7) TORRES (test code = TORRES) Home Worker ID - ELVIN W Lab Interpretation (test Normal code = 51700-0) [facility] CenterBASIC METABOLIC [id number] 06:48:00 Test Item Value Reference Range Interpretation [...] S NOT APPLICABLE FOR DIALYSIS PATIEN TS. Home Worker ID Carlo OCONNOR [id number] 06:48:00 Test Item Value Reference Range Interpretation Comments MAGNESIUM (BEAKER) (test code = 2.1 mg/dL 1.6-2.6 627) Home Worker ID Carlo OCONNOR WHEPATIC FUNCTION [id number] 06:48:00 Test Item Value Reference Range Interpretation [...] (test code = 30 U/L 6-55 347) Home Worker ID Carlo OCONNOR WPROTHROMBIN TIME/[id number] 06:32:00 Test Item Value Reference Range Interpretation Comments PROTIME (BEAKER) 12.9 seconds 11.9-14.2 (test code = 759) INR (BEAKER) (test 0.99 See_Comment [Automat ed message] code = 370) The system [employer] generated this result transmitted ref erence range: <=5.90. The reference range was not used to int erpret this result as normal/abnormal . RECOMMENDED COUMADIN/WARFARIN INR THERAPY RANGESSTANDARD DOSE: 2.0 - 3.0 Includes: PROPHYLAXIS for venous thrombosis, systemic embolization; TREATMENT for venous thrombosis and/or pulmonary embolus.HIGH RISK: Target INR is 2.5-3.5 for patients with mechanical heart valves.CBC W/PLT COUNT & AUTO [id number] 06:29:00 Test Item Value Reference Range Interpretation [...] code = 2801) MRI Brain wo contrast [id number] 16:25:00Patient Name: RIYA REEVESB: 1950. Age: 67 years. Gender: Female.MR: [id number]. Location: [facility]. Provider: Hollie Acuña MD.EXAM: Brain wo contrast MRI.PROVIDED CLINICAL HISTORY: Headaches for 2 months with pain radiating down theentire right side of the body. R51 Headache TECHNIQUE: Multi-sequence, multi-planar MR of the brain without gadoliniumcontrast. COMPARISON: No relevant priorexams available at the time of interpretation. FINDINGS: BRAIN: -- Mild confluent abnormally in creased T2 and FLAIR signal throughout thesupratentorial periventricular deep white matter bilaterally, non-specific butmost commonly due to chronic small vessel ischemic disease.-- No areas of abnormally-restricted diffusion in a pattern suggestive ofacute or early subacute ischemia. No intracranial h emorrhage. No other fluidcollection. No intracranial mass. No [...] abnormality. Mild chronic microangiopathic ischemic gliosis. SL: [id number]--Yxnc by: Finesse Dias MDDictated Date/time: 02/08/18 17:31Electronically Signed by: Finesse Dias MD 02/08/1817:40FINAL REPORTUT [facility] Brain w/wo contrast [id number] 2018-02-08 13:39:00 Test Item Value Reference Range Interpretation Comments Brain w/wo contrast MRI Cancel Reason: Exam (test code = Brain w/wo Replaced contrast MRI) [facility]
--- NOTE | 2022-10-30 10:18 | RAD REPORT ---
EXAM DESCRIPTION: CT - Head Brain Wo Cont - 10/30/2022 10:11 am CLINICAL HISTORY: SYNCOPE COMPARISON: Head Brain Wo Cont dated 01/11/2022; Head Brain Wo Cont dated 09/07/2019 TECHNIQUE: All CT scans are performed using dose optimization technique as appropriate and may inclu de automated exposure control or mA/KV adjustment according to patient size. FINDINGS: No intracranial hemorrhage, hydrocephalus or extra-axial fluid collection.No areas of brai n edema or evidence of midline shift. Mild chronic small vessel ischemic changes. The paranasal sinuses and mastoids are clear. The calvarium is intact. IMPRESSION: No acute intracranial abnormality.
[2022-10-30 10:28] LABS: Urine Blood Negative (Negative); Urine Glucose Negative (Negative); Urine Protein 1+ (Negative); Urine Specific Gravity 1.015 (1.005-1.030); Urine pH 8.5 (5.0-7.0)
[2022-10-30 10:51] LABS: Urine Bacteria None Seen /HPF (<20); Urine Mucus Slight /HPF (None Seen); Urine RBC <5 /HPF (None Seen); Urine Triple Phosphate Crystal Few /HPF (None Seen)
[2022-10-30 11:00] LABS: Protime INR 0.98
[2022-10-30 11:02] LABS: Absolute Lymphocytes (CBC) 2.8 K/uL (0.7-4.9); Hematocrit 35.4 % (36.0-45.0); Lymphocytes % 21.5 % (15.3-44.8); MCV 90.1 fL (80-100); MPV 7.3 fL (7.6-11.3); RBC Red Blood Cell Count 3.93 M/uL (3.86-4.86)
[2022-10-30] MEDS ORDERED: LACTULOSE 20 GM/30 ML UCUP ONE (11:08)
--- NOTE | 2022-10-30 11:11 | RAD REPORT ---
EXAM DESCRIPTION: RAD - Chest Single View - 10/30/2022 10:58 am CLINICAL HISTORY: syncope, ams COMPARISON: Chest Single View dated 04/06/2022; Chest Single View dated 01/11/2022; Chest Single View d ated 12/30/2021; Chest Single View dated 08/23/2021 FINDINGS: Lines: None. Lungs: No evidence of edema or pneumonia. Pleural: No significant pleural effusions or pneumothorax. Cardiac: The heart size is within normal limits. Mediastinum: Within normal limits. Bones: No acute fractures. Other: None IMPRESSION: No acute cardiopulmonary disease.
[2022-10-30 11:20] LABS: ALT/SGPT 18 U/L (13-56); AST/SGOT 20 U/L (15-37); Albumin 3.2 g/dL (3.4-5.0); Alkaline Phosphatase 84 U/L (45-117); BUN Blood Urea Nitrogen 33 mg/dL (7-18); Bicarbonate 26 mmol/L (21-32); Bilirubin Total 0.2 mg/dL (0.2-1.0); Glomerular Filtration Rate 25 ml/min (=/>90); Glucose Level 121 mg/dL (74-106); Magnesium 2.3 mg/dL (1.6-2.4); NT PRO-BNP 142 pg/mL (<125); Potassium 4.6 mmol/L (3.5-5.1); Protein, Total 7.9 g/dL (6.4-8.2); Sodium Level 139 mmol/L (136-145)
[2022-10-30 11:21] LABS: Bilirubin Direct < 0.1 mg/dL (0-0.2)
[2022-10-30] MEDS ORDERED: CEFTRIAXONE 1000 MG/VIAL ONE (12:33)
--- NOTE | 2022-10-30 15:22 | ER ---
Nurse's Notes [facility] Jose A Name: Alberto Botello Age: 72 yrs Sex: Female : 1950 Arrival Date: 10/30/2022 Time: 09:37 Bed 8 Private MD: Diagnosis: Syncope;UTI Presentation: 10/30 09:46 Chief complaint: EMS states: Syncopal event this morning at home while eating ll1 breakfast. BS 143, Initial BP 71/41. Last BP 114/63. Chief complaint: Patient's son or daughter states: Had 4 teeth pulled on Tuesday. Just finished a steroid dose pack. Had trouble urinating last night per daughter. Coronavirus screen: Vaccine status: Patient reports receiving the 2nd dose of the covid vaccine. Client denies travel out of the [place] in the last 14 days. At this time, the client does not indicate any symptoms associated with coronavirus-19. Ebola Screen: Patient denies travel to an Ebola-affected area in the 21 days before illness onset. Initial Sepsis Screen: Does the patient meet any 2 criteria? No. Patient's initial sepsis screen is negative. Does the patient have a suspected source of infection? No. Patient's initial sepsis screen is negative. Risk Assessment: Do you want to hurt yourself or someone else? Patient reports no desire to harm self or others. Onset of symptoms was October 30, 2022. 09:46 Method Of Arrival: EMS ll1 09:46 Acuity: ART 2 ll1 Triage Assessment: 09:49 General: Appears in no apparent distress. Behavior is calm, cooperative, appropriate ll1 for age. Pain: Denies pain. Neuro: Reports a syncopal episode. Historical: - Allergies: 09:45 No Known Allergies; ll1 - PMHx: 09:45 Osteoporosis; Hypertension; Hepatitis; Diabetes - NIDDM; Chronic pain; Anxiety; ll1 Pancreatitis; - PSHx: 09:45 Cholecystectomy; ll1 - Immunization history:: Client reports receiving the 2nd dose of the Covid vaccine. - Social history:: Smoking status: Patient denies any tobacco usage or history of. Screenin:34 [facility] ED Fall Risk Assessment (Adult) History of falling in the last 3 months, ll1 including since admission Yes- physiologic fall (2 pts) Impaired Gait Yes (1 pt) Mobility Assist Device Used Yes (1 pt) Score/Fall Risk Level 3 or more points = High Risk Oriented to surroundings, Maintained a safe environment, Educated pt \T\ family on fall prevention, incl call for assistance when getting out of bed, Hourly rounding (assess needs \T\ fall precautionary measures) done, Used gait belt as appropriate Offered frequent toileting (1:1 observation), Utilized family, sitter, or virtual clinical field specialist as indicated. Abuse screen: Denies threats or abuse. Nutritional screening: No deficits noted. Tuberculosis screening: No symptoms or risk factors identified. Assessment: 09:52 Reassessment: No changes from previously documented assessment. HANNAH Espinal at . ll1 10:04 Reassessment: No changes from previously documented assessment. to CT via stretcher. ll1 10:33 Reassessment: No changes from previously documented assessment. Patient and/or family ll1 updated on plan of care and expected duration. Pain level reassessed. Patient is alert, oriented x 3, equal unlabored respirations, skin warm/dry/pink. 12:11 Reassessment: No changes from previously documented assessment. Patient and/or family ll1 updated on plan of care and expected duration. Pain level reassessed. Patient is alert, oriented x 3, equal unlabored respirations, skin warm/dry/pink. 13:40 Reassessment: No changes from previously documented assessment. Patient and/or family ll1 updated on plan of care and expected duration. Pain level reassessed. Patient is alert, oriented x 3, equal unlabored respirations, skin warm/dry/pink. 14:42 Reassessment: No changes from previously documented assessment. O2 removed, watching ll1 oxygenation. US at BS. 15:49 Reassessment: No changes from previously documented assessment. Patient and/or family ll1 updated on plan of care and expected duration. Pain level reassessed. Patient is alert, oriented x 3, equal unlabored respirations, skin warm/dry/pink. Vital Signs: 09:46 BP 119 / 59; Pulse 72; Resp 18; Temp 98.2; Pulse Ox 92% on R/A; ll1 09:48 Pulse Ox 85% on R/A; ll1 09:48 Pulse Ox 86% on 3 lpm NC; ll1 09:53 Pulse Ox 97% on 3 lpm NC; ll1 10:33 BP 126 / 61; Pulse 69; Pulse Ox 100% on R/A; ll1 11:35 BP 124 / 48; Pulse 70; Pulse Ox 99% on R/A; ll1 13:15 BP 120 / 63; Pulse 65; Resp 18; Pulse Ox 100% on 3 lpm NC; ll1 14:52 BP 146 / 61; Pulse 67; Resp 19; Pulse Ox 96% on R/A; ll1 15:29 BP 140 / 64; Pulse 71; Pulse Ox 96% on R/A; ll1 ED Course: 09:37 Patient arrived in ED. ll1 09:45 Bonita Go, RN is Primary Nurse. ll1 09:45 Arm band placed on Patient placed in an exam room, on a stretcher. 1 09:46 Steven Shea PA is PHCP. [facility] 09:46 Piyush Hwang MD is Attending Physician. [facility] 09:49 Triage completed. ll1 09:52 Maintain EMS IV. Dressing intact. Good blood return noted. Site clean \T\ dry. Gauge \T\ ll 1 site: 22 L FA. 10:12 CT Head Brain wo Cont In Process Unspecified. EDMS 10:28 Urine Culture Sent. ll1 10:28 Urine Microscopic Only Sent. ll1 10:28 Alejandro cath inserted, using sterile technique, 16 Fr., by oh, balloon inflated, to ll1 gravity drainage, urine specimen collected. 10:59 XRAY Chest (1 view) In Process Unspecified. EDMS 15:35 Patient has correct armband on for positive identification. Bed in low position. Call 1 light in reach. Side rails up X2. Client placed on continuous cardiac and pulse oximetry monitoring. NIBP monitoring applied. turn down attendant on. 15:48 IV discontinued, intact, bleeding controlled, No redness/swelling at site. Pressure ll1 dressing applied. 15:49 No provider procedures requiring assistance completed. ll1 Administered Medications: 11:02 Drug: NS 0.9% 500 ml Route: IV; Rate: bolus; Site: left antecubital; ll1 15:50 Follow up: Response: No adverse reaction; IV Status: Completed infusion; IV Intake: ll1 1000ml 11:15 Drug: Lactulose 30 grams Volume: 45 ml; Route: PO; ll1 12:35 Follow up: Response: No adverse reaction ll1 12:35 Drug: Rocephin (cefTRIAXone) 1 grams Route: IV; Rate: calculated rate; Site: left ll1 antecubital; 15:49 Follow up: Response: No adverse reaction; IV Status: Completed infusion; IV Intake: 51ennt1 Medication: 15:35 VIS not applicable for this client. ll1 Intake: 15:49 IV: 10ml; Total: 10ml. ll1 15:50 IV: 1000ml; Total: 1010ml. 1 Outcome: 15:21 Discharge ordered by . carri 15:49 Discharged to home via wheelchair. 1 15:49 Condition: stable 15:49 Discharge instructions given to patient, family, Instructed on discharge instructions, follow up and referral plans. medication usage, Demonstrated understanding of instructions, follow-up care, medications, Prescriptions given X 1. 15:50 Patient left the ED. ll1 Addendum: 11/02/2022 10:00 Addendum: Culture Results: Positive urine culture. Phone call Attempt #1 attempted to a a5 check on patient, left voice mail. Signatures: Dispatcher [employer] EDMS Steven Shea PA PA jmm Calderon, Audri, RN RN aa5 Bonita Go RN RN ll1 Corrections: (The following items were deleted from the chart) 10/30 10:08 10:08 BP 135 / 70; Pulse 122bpm; Resp 26bpm; Pulse Ox 99% RA; ll1 ll1
--- NOTE | 2022-10-30 15:22 | EDPHYS ---
Physician Documentation [facility] Name: Alberto Botello Age: 72 yrs Sex: Female : 1950 Arrival Date: 10/30/2022 Time: 09:37 Bed 8 Private MD: ED Physician Piyush Hwang HPI: 10/30 09:46 This 72 yrs old Female presents to ER via EMS with complaints of Syncope. jmm 09:46 The patient has experienced syncope. Onset: The symptoms/episode began/occurred jmm acutely. This is a 72 year old female with a history of htn, dm, that presents to the ED with complaints of syncope which occurred at breakfast. Daighter states the patient has had difficulty walking the past 2 days which has been attributed to pain in the right knee. Denies fever. daughter states the patient has not been able to urinate since yesterday. . Historical: - Allergies: 09:45 No Known Allergies; ll1 - PMHx: 09:45 Osteoporosis; Hypertension; Hepatitis; Diabetes - NIDDM; Chronic pain; Anxiety; ll1 Pancreatitis; - PSHx: 09:45 Cholecystectomy; ll1 - Immunization history:: Client reports receiving the 2nd dose of the Covid vaccine. - Social history:: Smoking status: Patient denies any tobacco usage or history of. ROS: 09:46 Constitutional: Negative for fever, chills, and weight loss, Cardiovascular: Negative jmm for chest pain, palpitations, and edema, Respiratory: Negative for shortness of breath, cough, wheezing, and pleuritic chest pain. 09:46 MS/extremity: Positive for pain. 09:46 Neuro: Positive for syncope. 09:46 All other systems are negative. Exam: 09:46 Constitutional: This is a well developed, well nourished patient who is awake, alert, jmm and in no acute distress. Head/Face: atraumatic. Eyes: EOMI, no conjunctival erythema appreciated ENT: Moist Mucus Membranes Neck: Trachea midline, Supple Chest/axilla: Normal chest wall appearance and motion. Cardiovascular: Regular rate and rhythm. No edema appreciated Respiratory: Normal respirations, no respiratory distress appreciated Abdomen/GI: Non distended Back: Normal ROM Skin: General appearance color normal 09:46 Musculoskeletal/extremity: ROM: intact in all extremities. 09:46 Skin: Appearance: Color: normal in color. 09:46 Psych: Behavior/mood is pleasant, cooperative. Vital Signs: 09:46 BP 119 / 59; Pulse 72; Resp 18; Temp 98.2; Pulse Ox 92% on R/A; ll1 09:48 Pulse Ox 85% on R/A; ll1 09:48 Pulse Ox 86% on 3 lpm NC; ll1 09:53 Pulse Ox 97% on 3 lpm NC; ll1 10:33 BP 126 / 61; Pulse 69; Pulse Ox 100% on R/A; ll1 11:35 BP 124 / 48; Pulse 70; Pulse Ox 99% on R/A; ll1 13:15 BP 120 / 63; Pulse 65; Resp 18; Pulse Ox 100% on 3 lpm NC; ll1 14:52 BP 146 / 61; Pulse 67; Resp 19; Pulse Ox 96% on R/A; ll1 15:29 BP 140 / 64; Pulse 71; Pulse Ox 96% on R/A; ll1 MDM: 09:46 Patient medically screened. carri 15:20 Data reviewed: vital signs, nurses notes. Counseling: I had a detailed discussion with carri the patient and/or guardian regarding: the historical points, exam findings, and any diagnostic results supporting the discharge/admit diagnosis, lab results, radiology results, the need for outpatient follow up, to return to the emergency department if symptoms worsen or persist or if there are any questions or concerns that arise at home. 10/30 09:53 Order name: Basic Metabolic Panel; Complete Time: 11: [facility] 10/30 09:53 Order name: CBC with Diff; Complete Time: 11: [facility] 10/30 09:53 Order name: LFT's; Complete Time: 11: [facility] 10/30 09:53 Order name: Magnesium; Complete Time: 11: [facility] 10/30 09:53 Order name: NT PRO-BNP; Complete Time: 11: [facility] 10/30 09:53 Order name: PT-INR; Complete Time: 11: [facility] 10/30 09:53 Order name: Troponin HS; Complete Time: 11: [facility] 10/30 09:53 Order name: XRAY Chest (1 view); Complete Time: 11:16 [facility] 10/30 09:53 Order name: CT Head Brain wo Cont; Complete Time: 10:21 [facility] 10/30 10:26 Order name: Urine Microscopic Only; Complete Time: 11:05 [facility] 10/30 10:26 Order name: Urine Culture [facility] 10/30 10:28 Order name: Urine Dipstick-Ancillary; Complete Time: 10:28 [facility] 10/30 14:18 Order name: US Extremity Venous W Compression Lavelle [facility] 10/30 15:31 Order name: US; Complete Time: 16:29 [facility] 10/30 09:53 Order name: EKG; Complete Time: 09:54 [facility] 10/30 09:53 Order name: Cardiac monitoring; Complete Time: 10:04 [facility] 10/30 09:53 Order name: EKG - Nurse/Tech; Complete Time: 10:04 [facility] 10/30 09:53 Order name: IV Saline Lock; Complete Time: 10:04 [facility] 10/30 09:53 Order name: Labs collected and sent; Complete Time: 10:28 [facility] 10/30 09:53 Order name: O2 Per Protocol; Complete Time: 09:55 [facility] 10/30 09:53 Order name: O2 Sat Monitoring; Complete Time: 09:55 [facility] 10/30 09:55 Order name: Alejandro; Complete Time: 10:28 ll1 Administered Medications: 11:02 Drug: NS 0.9% 500 ml Route: IV; Rate: bolus; Site: left antecubital; ll1 15:50 Follow up: Response: No adverse reaction; IV Status: Completed infusion; IV Intake: ll1 1000ml 11:15 Drug: Lactulose 30 grams Volume: 45 ml; Route: PO; ll1 12:35 Follow up: Response: No adverse reaction ll1 12:35 Drug: Rocephin (cefTRIAXone) 1 grams Route: IV; Rate: calculated rate; Site: left ll1 antecubital; 15:49 Follow up: Response: No adverse reaction; IV Status: Completed infusion; IV Intake: [id number] Disposition: 18:38 Co-signature as Attending Physician, Piyush Hwang MD I reviewed the patient's care rt provided by the Advanced Practice Provider and agree with the diagnosis and treatment plan. Disposition Summary: 10/30/22 15:21 Discharge Ordered Location: Home [facility] Condition: Stable [facility] Diagnosis - Syncope jmm - UTI [facility] Followup: [facility] - With: Private Physician - When: 1 - 2 days - Reason: Recheck today's complaints, Continuance of care, Re-evaluation by your physician Discharge Instructions: - Discharge Summary Sheet [email or web address] - Syncope jm - Urinary Tract Infection, Adult [facility] Forms: - Medication Reconciliation Form carri - Thank You Letter carri - Antibiotic Education carri - Prescription Opioid Use carri Prescriptions: - cefpodoxime 200 mg Oral Tablet - take 1 tablet by ORAL route every 12 hours for 10 days with food; 20 tablet; [facility] Refills: 0, Product Selection Permitted Signatures: Dispatcher [employer] EDSteven Benson PA PA jmm Lewis, Lynsay, RN RN ll1 Piyush Hwang MD MD rt
--- NOTE | 2022-10-30 15:31 | RAD REPORT ---
EXAM DESCRIPTION: US - Extrem Venous W Compress Lavelle - 10/30/2022 3:12 pm CLINICAL HISTORY: PAIN COMPARISON: <Comparisons> TECHNIQUE: Real-time sonographic evaluation of the lower extremity deep venous systems was performed using color Doppler, grayscale, and compression. FINDINGS: Bilateral lower extremities. Normal compressibility, flow augmentation, phasic flow and spontaneous flow is identified in both the left and right lower extremity deep venous systems. No intraluminal filling defects seen. IMPRESSION: No DVT in either lower extremity.
[2022-10-30 16:06] VITALS: TEMP 98.2
[2022-10-30 16:13] VITALS: O2SAT 96
[2022-10-30 16:14] VITALS: BP 140/64
--- NOTE | 2022-11-01 12:41 | EKG ---
Test Date: 2022-10-30 Test Time: 10:00:59 Documentum Consultant: EDWARD MEASUREMENT RESULTS: Intervals: Rate: 69 MS: 156 QRSD: 86 QT: 426 QTc: 456 Stuart: P: 72 MS: 156 QRS: 12 T: 75 INTERPRETIVE STATEMENTS: Normal sinus rhythm RSR' or QR pattern in V1 suggests right ventricular conduction delay T wave abnormality, consider anterior ischemia Abnormal ECG Compared to ECG 01/11/2022 13:54:13 T-wave abnormality now present Possible ischemia now present Myocardial infarct finding no longer present Electronically Signed On 11-01-22 12:37:15 [employer] by Jae Avilez
== END 2022-10-30 15:50 | disposition home or self-care (01) ==
LOC: ER 09:23
DX: N39.0 Urinary tract infection, site not specified (principal); I10 Essential (primary) hypertension; E11.9 Type 2 diabetes mellitus without complications
CPT/HCPCS: 36415; 51702; 70450; 71045; 80048; 80076; 81003; 81015; 83735; 83880; 84484; 85025; 85610; 87077; 87086; 87088; 87186; 93005; 93970; 96361; 96365; 96366; 99285

== ENCOUNTER 2023-03-28 19:54 | Emergency (ER) | payer OTHER ==
--- OUTSIDE RECORDS SUMMARY | 2023-03-28 20:09 | XMS REPORT | Continuity of Care Document ---
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 [facility] (FOSAMAX) 8-26 by mouth [facility] 70 MG 09:40: every 7 Medical tablet 47 days Take Center in the morning with a full glass of water, on an empty stomach, and do not take anything else by mouth or lie down for the next 30 min. . HYDROcodone Yes 1{tbl} [id number] Take [address] [facility] -acetaminop 8-26 [id number] tablet by [facility] hen (NORCO 09:40: 3D mouth 3 Medi josephine 5-325) 47 (three) Center 5-325 mg times per tablet daily. ursodioL Yes 500mg QD Take [address] (ACTIGALL) 8-26 mg by [facility] 500 MG 09:40: mouth Medical tablet 47 daily. [facility] meclizine Yes [facility] (ANTIVERT) 6-21 [facility] 25 mg 00:00: Medical tablet 00 [facility] (ANTIVERT) 6-21 [facility] 25 mg 00:00: Medical tablet 00 [facility] (ANTIVERT) 6-21 [facility] 25 mg 00:00: Medical tablet 00 [facility] (ANTIVERT) 6-21 [facility] 25 mg 00:00: Medical tablet 00 [facility] (ANTIVERT) 6-21 [facility] 25 mg 00:00: Medical tablet 00 [facility] (ANTIVERT) 6-21 [facility] 25 mg 00:00: Medical tablet [facility] (ANTIVERT) 6-21 [facility] 25 mg 00:00: Medical tablet [facility] (ANTIVERT) 6-21 [facility] 25 mg 00:00: Medical tablet [facility] (ANTIVERT) 6-21 [facility] 25 mg 00:00: Medical tablet 00 [facility] (ANTIVERT) 6-21 [facility] 25 mg 00:00: Medical tablet 00 [facility] Nortriptyli Nortriptyli Yes HOLLIE TAKE 1 UT ne HCl - 25 ne HCl - 25 5-30 DOMENICO M.D. CAPSULE AT [facility] MG Oral MG Oral 00:00: BEDTIME. ans Capsule Capsule 00 Lisinopril Lisinopril Yes [...] TAKE 1.5 UT Sulfate 30 Sulfate 30 - TABLET P hysici MG Oral MG Oral 00:00: TWICE ans Tablet Tablet 00 DAILY MethylPREDN MethylPREDN Yes HOLLIE Medrol UT ISolone 4 ISolone 4 02-01 DOMENICO MMary dose pb [facility] MG Oral MG Oral 00:00: (24 mg ans Tablet Tablet 00 with Therapy Therapy tapering Pack Pack dose to 4 mg over 6 days) MDD:24mg Hemocyte Hemocyte Yes R.N. [place] Plus 106-1 Plus 106-1 523 Phy sici MG Oral MG Oral 00:00: ans Capsule Capsule 00 morphine Yes 30mg Take 30 mg Uni [...] of mg 24 hr 08:12: daily. [place] [facility] 18 Medical Branch ALPRAZolam 2015-0 Yes 2mg Take 2 mg Un [place] (XANAX) 2 7-07 by mouth ity of mg tablet 08:12: [place] 18 as needed Medical for Sleep. Branch morphine 2016-0 Yes 30mg Take 30 mg Uni vers (AVINZA) 30 7-07 by mouth ity of mg 24 hr 08:12: daily. [place] [facility] 18 Medical Branch amitriptyli 0 Yes 10mg Take 10 [...] ity of mg 24 hr 08:12: daily. [facility] [place] 18 Medical Branch ALPRAZolam 2016-0 Yes 2mg [...] [place] tablet 18 bedtime. Medical Branch morphine 0 Yes 30mg Take 30 mg Uni vers [...] [place] 00 TWICE A Medical DAY WITH [place] FOOD meloxicam Yes TAKE 1 Univer s (MOBIC) 7.5 6-15 TABLET BY ity of mg tablet 00:00: MOUTH [place] 00 TWICE A Medical DAY WITH [place] FOOD meloxicam Yes TAKE 1 Univer s (MOBIC) 7.5 6-15 TABLET BY ity of mg tablet 00:00: MOUTH [place] 00 TWICE A Medical DAY WITH [facility] meloxicam Yes TAKE 1 Univer s (MOBIC) 7.5 6-15 TABLET BY ity of mg tablet 00:00: MOUTH [place] 00 TWICE A Medical DAY WITH [place] FOOD meloxicam Yes TAKE 1 Univer s (MOBIC) 7.5 6-15 TABLET BY ity of mg tablet 00:00: MOUTH [place] 00 TWICE A Medical DAY WITH [facility] meloxicam Yes TAKE 1 Univer s (MOBIC) 7.5 6-15 TABLET BY ity of mg tablet 00:00: MOUTH [place] 00 TWICE A Medical DAY WITH [place] FOOD meloxicam Yes TAKE 1 Univer s (MOBIC) 7.5 6-15 TABLET BY ity of mg tablet 00:00: MOUTH [place] 00 TWICE A Medical DAY WITH [place] FOOD meloxicam Yes TAKE 1 Univer s (MOBIC) 7.5 6-15 TABLET BY ity of mg tablet 00:00: MOUTH [place] 00 TWICE A Medical DAY WITH [place] FOOD meloxicam Yes TAKE 1 Univer s (MOBIC) 7.5 6-15 TABLET BY ity of mg tablet 00:00: MOUTH [place] 00 TWICE A Medical DAY WITH [place] FOOD meloxicam Yes TAKE 1 Univer s [...] BID. [place] tablet 00 Medical Branch morpHINE 0 Yes TK 1 AND Unive rs I.R. (MSIR) 6-10 1/2 TS PO ity of 30 mg 00:00: BID. [place] tablet 00 Medical Branch morpHINE 2015-0 Yes TK 1 AND Unive rs I.R. (MSIR) 6-10 1/2 TS PO ity of 30 mg 00:00: BID. [place] tablet 00 Medical Branch morpHINE 0 Yes TK 1 AND Unive rs I.R. [...] BID. [place] tablet 00 Medical Branch morpHINE 2016-0 Yes TK 1 AND Unive rs I.R. [...] Powd 00:00: [place] 00 Medical Branch Lisinopril, 2016-0 Yes Univer s Bulk, 100 % 6-03 ity of Powd 00:00: [place] [facility] Lisinopril, 2016-0 Yes Univer s Bulk, 100 % 6-03 ity of Powd 00:00: [place] [facility] Lisinopril, 2016-0 Yes Univer s Bulk, 100 % 6-03 ity of Powd 00:00: [place] [facility] Lisinopril, 2016-0 Yes Univer s Bulk, 100 % 6-03 ity of Powd 00:00: [place] 00 Medical Branch Lisinopril, 2015-0 Yes Univer s Bulk, 100 % 6-03 ity of Powd 00:00: [place] [facility] Lisinopril, 0 Yes Univer s Bulk, 100 % 6-03 ity of Powd 00:00: [place] [facility] Lisinopril, 2015-0 Yes Univer s Bulk, 100 % 6-03 [...] 00 EVERY 8 Medical HOURS Branch gabapentin 2016-0 Yes TAKE 1 Unive rs (NEURONTIN) 5-20 TABLET BY ity of 600 mg 00:00: MOUTH [place] tablet 00 EVERY 8 Medical HOURS Branch gabapentin 2016-0 Yes TAKE 1 Unive rs [...] of PFIZER VACCINE 00:00:00 [facility] SARS-COV-2 COVID-19 2020-11-11 Completed Unive rsity of PFIZER VACCINE 00:00:00 [place] Medi josephine Branch SARS-COV-2 COVID-19 2020-11-11 Completed Unive rsity of PFIZER VACCINE 00:00:00 [facility] Branch SARS-COV-2 COVID-19 2020-11-11 Completed Unive rsity of PFIZER VACCINE 00:00:00 [facility] Branch SARS-COV-2 COVID-19 2020-11-11 Completed Unive rsity of PFIZER VACCINE 00:00:00 [facility] Branch SARS-COV-2 COVID-19 2020-11-11 Completed Unive rsity of PFIZER VACCINE 00:00:00 [facility] Branch SARS-COV-2 COVID-19 2020-11-11 Completed Unive rsity of PFIZER VACCINE 00:00:00 [facility] Branch SARS-COV-2 COVID-19 2020-11-11 Completed Unive rsity of PFIZER VACCINE 00:00:00 [facility] Branch SARS-COV-2 COVID-19 2020-11-11 Completed Unive rsity of PFIZER VACCINE 00:00:00 [facility] Branch SARS-COV-2 COVID-19 2020-11-11 Completed Unive rsity of PFIZER VACCINE 00:00:00 [facility] Branch SARS-COV-2 COVID-19 2020-11-11 Completed Unive rsity of PFIZER VACCINE 00:00:00 [facility] Branch SARS-COV-2 COVID-19 2020-11-11 Completed Unive rsity of PFIZER VACCINE 00:00:00 [facility] Branch SARS-COV-2 COVID-19 2020-11-11 Completed Unive rsity of PFIZER VACCINE 00:00:00 [facility] Branch SARS-COV-2 COVID-19 2020-11-11 Completed Unive rsity of PFIZER VACCINE 00:00:00 [facility] Branch SARS-COV-2 COVID-19 2020-10-21 Completed Unive rsity of PFIZER VACCINE 00:00:00 [facility] Branch SARS-COV-2 COVID-19 2020-10-21 Completed Unive rsity of PFIZER VACCINE 00:00:00 [facility] SARS-COV-2 COVID-19 2020-10-21 Completed Unive rsity of PFIZER VACCINE 00:00:00 [facility] Branch SARS-COV-2 COVID-19 2020-10-21 Completed Unive rsity of PFIZER VACCINE 00:00:00 [facility] SARS-COV-2 COVID-19 2020-10-21 Completed Unive rsity of PFIZER VACCINE 00:00:00 [facility] SARS-COV-2 COVID-19 2020-10-21 Completed Unive rsity of PFIZER VACCINE 00:00:00 [facility] SARS-COV-2 COVID-19 2020-10-21 Completed Unive rsity of PFIZER VACCINE 00:00:00 [facility] SARS-COV-2 COVID-19 2020-10-21 Completed Unive rsity of PFIZER VACCINE 00:00:00 [facility] SARS-COV-2 COVID-19 2020-10-21 Completed Unive rsity of PFIZER VACCINE 00:00:00 [facility] SARS-COV-2 COVID-19 2020-10-21 Completed Unive rsity of PFIZER VACCINE 00:00:00 [facility] SARS-COV-2 COVID-19 2020-10-21 Completed Unive rsity of PFIZER VACCINE 00:00:00 [facility] SARS-COV-2 COVID-19 2020-10-21 Completed Unive rsity of PFIZER VACCINE 00:00:00 [facility] SARS-COV-2 COVID-19 2020-10-21 Completed Unive rsity of PFIZER VACCINE 00:00:00 [facility] SARS-COV-2 COVID-19 2020-10-21 Completed Unive rsity of PFIZER VACCINE 00:00:00 [facility] Vital Signs Vital Name Observation Time Observation Value Comments Source WEIGHT 2021-03-10 62.596 kg 11:08:00 Body height 2022-10-21 149.9 cm [facility] 15:35:00 [facility] Body weight 2022-10-21 62.596 kg University of 15:35:00 [facility] BMI 2022-10-21 27.87 kg/m2 University [facility] 15:35:00 [facility] Body height 2022-10-04 149.9 cm University of 20:30:00 [facility] Body weight 2022-10-04 62.596 kg University of 20:30:00 [facility] BMI 2022-10-04 27.87 kg/m2 University of 20:30:00 [facility] WEIGHT 2022-04-11 62.8 kg 19:25:00 WEIGHT 2022-04-09 62.795 kg 11:00:00 WEIGHT 2022-04-11 62.8 kg 19:25:00 WEIGHT 2022-04-09 62.795 kg 11:00:00 WEIGHT 2022-04-11 62.8 kg 19:25:00 WEIGHT 2022-04-09 62.795 kg 11:00:00 Systolic blood 2021-07-24 144 mm[Hg] University of pressure 19:28:00 [facility] Diastolic blood 2021-07-24 90 mm[Hg] Etters o f pressure 19:28:00 [facility] Heart rate 2021-07-24 87 /min [facility] 19:28:00 [facility] Respiratory rate 2021-07-24 18 /min [facility] 19:28:00 [facility] Oxygen saturation 2021-07-24 97 /min [facility] in Arterial blood 19:28:00 [facility] by Pulse oximetry [place] Body temperature 2021-07-24 37 Carolann [facility] 16:20:00 [facility] Body weight 2021-07-24 61.236 kg [facility] 16:20:00 [facility] BMI 2021-07-24 25.51 kg/m2 [facility] 16:20:00 [facility] HEIGHT 2021-05-04 152.4 cm 17:29:00 WEIGHT 2021-05-04 61.689 kg 17:29:00 HEIGHT 2021-05-04 152.4 cm 17:29:00 WEIGHT 2021-05-04 61.689 kg 17:29:00 WEIGHT 2021-03-10 62.596 kg 11:08:00 Systolic blood 2022-04-13 132 mm[Hg] [facility] pressure 15:18:00 [facility] Diastolic blood 2022-04-13 85 mm[Hg] [facility] pressure 15:18:00 [facility] Heart rate 2022-04-13 83 /min [facility] 15:18:00 [facility] Body temperature 2022-04-[address] [facility] 15:18:00 [facility] Respiratory rate 2022-04-13 18 /min [facility] 15:18:00 [facility] Oxygen saturation 2022-04-13 98 /min [facility] in Arterial blood 15:18:00 Medical nter by Pulse oximetry Body weight 2022-04-[address] [facility] 19:25:00 [facility] BMI 2022-04-11 27.04 kg/m2 [facility] 19:25:00 [facility] Center Systolic blood 2021-05-07 156 mm[Hg] [facility] pressure 08:00:00 Medical Center Diastolic blood 2021-05-07 74 mm[Hg] [facility] pressure 08:00:00 [facility] Heart rate 2021-05-07 76 /min [facility] 08:00:00 [facility] Body temperature 2021-05-[address] 08:00:00 [facility] Respiratory rate 2021-05-07 17 /min [facility] 08:00:00 [facility] Oxygen saturation 2021-05-07 97 /min [facility] Sujata es in Arterial blood 08:00:00 Medical nter by Pulse oximetry Body height 2021-05-[address] [facility] 17:29:00 Medical Center Body weight 2021-05-[address] [facility] 17:29:00 Medical Center BMI 2021-05-04 26.56 kg/m2 [facility] 17:29:00 [facility] BP Systolic 2018-02-01 131 mm[Hg] Location: [facility]; [place] [facility] 08:36:00 Position: Sitting BP Diastolic 2018-02-01 78 mm[Hg] [facility] 08:36:00 Position: Sitting Height 2018-02-01 60 [in_us] [facility] 08:36:00 Weight 2018-02-01 117 [lb_av] [facility] 08:36:00 Body Mass Index 2018-02-01 22.85 kg/m2 [facility] Calculated 08:36:00 Heart Rate 2018-02-01 73 /min Location: R [facility] 08:36:00 Brachial Artery; Procedures Procedure Date / Time Performing Clinician Source Performed MEDICAL RELEASE/CLEARANCE 2023-03-02 05:01:00 Doctor Unassigned, No [facility] Name Medical Branch AUTHORIZATION FOR RELEASE 2023-01-05 05:01:00 Doctor Unassigned, No [facility] Name Medical Branch ASSIGNMENT OF BENEFITS 2022-10-04 20:24:45 Doctor Unassigned, No [facility] AUTHORIZATION FOR RELEASE 2022-09-28 06:01:00 Doctor Unassigned, No [facility] POCT-GLUCOSE METER 2022-04-13 15:22:[address] [facility] SARS-COV2/RT-PCR ([facility] & 2022-04-13 13:39:00 [facility] Britney [facility] REF LABS) [facility] POCT-GLUCOSE METER 2022-04-13 11:32:[facility] POCT-[facility]SE METER 2022-04-13 07:48:[address] [facility] BASIC METABOLIC PANEL 2022-04-13 04:31:00 [facility] MAGNESIUM 2022-04-13 04:31:00 [facility]22-04-13 04:31:00 [facility] CBC (HEMOGRAM ONLY) 2022-04-13 04:31:[facility] POCT-GLUCOSE METER 2022-04-12 20:50:[address] [facility] POCT-GLUCOSE METER 2022-04-12 15:42[facility]SE METER 2022-04-12 12:42:00 [facility] POCT-GLUCOSE METER 2022-04-12 08:06[facility]OLIC PANEL 2022-04-12 03:22:00 [facility] 2022-04-12 03:22:[facility]22-04-12 03:22:00 [facility] CBC (HEMOGRAM ONLY) 2022-04-12 03:22[facility] PO[facility]UCOSE METER 2022-04-11 20:41:00 [facility] POCT-GLUCOSE METER 2022-04-11 15:29:[facility] POCT-[facility]UCOSE METER 2022-04-11 11:06:[address] [facility] POCT-GLUCOSE METER 2022-04-11 07:19:[facility]OLIC PANEL 2022-04-11 05:21:00 [facility] MAGNESIUM 2022-04-11 05:21:00 [facility] PHOSPHORUS 2022-04-11 05:21:00 [facility] CBC (HEMOGRAM ONLY) 2022-04-11 05:21:[address] [facility] POCT-GLUCOSE METER 2022-04-10 21:16:[address] [facility] POCT-GLUCOSE METER 2022-04-10 16:48:[address] [facility] POCT-GLUCOSE METER 2022-04-10 11:11:[address] [facility] POCT-GLUCOSE METER 2022-04-10 07:33:[address] [facility] BASIC METABOLIC PANEL 2022-04-10 06:00:00 [facility] MAGNESIUM 2022-04-10 06:00:00 [facility] PHOSPHORUS 2022-04-10 06:00:00 [facility] CBC (HEMOGRAM ONLY) 2022-04-10 06:00:00 [facility] PREPARE LEUKO-REDUCED RBC 2022-04-09 23:54:[address] [facility] POCT-GLUCOSE METER 2022-04-09 22:57:[address] [facility] POCT-GLUCOSE METER 2022-04-09 17:04:[address] [facility] CBC (HEMOGRAM ONLY) 2022-04-09 16:27:00 [facility] POCT-GLUCOSE METER 2022-04-09 11:41:[address] [facility] POCT-GLUCOSE METER 2022-04-09 07:35:[address] [facility] URINE CULTURE 2022-04-09 05:49:00 [facility] CBC W/PLT COUNT & AUTO 2022-04-09 05:41:00 [facility] BASIC METABOLIC PANEL 2022-04-09 05:41:00 [facility] MAGNESIUM 2022-04-09 05:41:00 [facility] PHOSPHORUS 2022-04-09 05:41:00 [facility] CBC W/PLT COUNT & AUTO 2022-04-09 05:41:00 [facility] POCT-[facility]UCOSE METER 2022-04-09 00:05:[address] [facility] TRANSFUSE LEUKO-REDUCED 2022-04-08 23:02:00 [facility] RED BLOOD CELLS Center CBC (HEMOGRAM ONLY) 2022-04-08 21:58:00 [facility]OLIC PANEL 2022-04-08 21:58:00 [facility] 2022-04-08 21:58:00 [facility] PHOS[facility]US 2022-04-08 21:58:00 [facility] LACTIC ACID, VENOUS 2022-04-08 21:58:00 [facility] VENOUS DOPPLER LEGS 2022-04-08 19:15:00 Prema [facility] BILATERAL [facility] CBC W/PLT COUNT & AUTO 2022-04-08 17:42:00 Krzysztofjenny [facility] DIFFERENTIAL [facility] CBC W/PLT COUNT & AUTO 2022-04-08 17:42:00 Krzysztofjenny [facility] DIFFERENTIAL [facility] BLOOD CULTURE 2022-04-08 16:09:00 [facility]ST 1 VIEW PORTABLE 2022-04-08 15:24:00 Britney Lloyd [facility] / BEDSIDE [facility] BASIC METABOLIC PANEL 2022-04-08 15:22:00 [facility] LACTIC ACID, VENOUS 2022-04-08 15:22:00 Krzysztofjenny [facility] POCT-GLUCOSE METER 2022-04-08 15:20:00 Krzysztofjenny [facility] POCT-GLUCOSE METER 2022-04-08 11:31:00 [facility] CT LOWER EXTREMITY 2022-04-08 03:52:00 [facility] XR PELVIS 1 OR 2 VIEWS 2022-04-07 20:23:[address] [facility] POCT-GLUCOSE METER 2022-04-07 17:26:00 Krzysztoferjenny [facility] TISSUE EXAM 2022-04-07 15:36:00 Heaven Garza [facility] XR PELVIS 1 OR 2 VIEWS 2022-04-07 15:10:00 Heaven Garza [facility] HEMIARTHROPLASTY, HIP 2022-04-07 12:16:00 Heaven Garza I [facility] POCT-GLUCOSE METER 2022-04-07 09:49:00 Krzysztoferjenny [facility] TYPE AND SCREEN, 2022-04-07 09:12:00 BrandonArmani monaco [facility] Center CBC W/PLT COUNT & AUTO 2022-04-07 06:19:00 Rosa Isela Ching [facility] DIFFERENTIAL [facility] CBC W/PLT COUNT & AUTO 2022-04-07 06:19:00 Rosa Isela Ching [facility] DIFFERENTIAL [facility] URINE CULTURE 2022-04-07 05:15:00 [facility]/ REFLEX 2022-04-07 05:15:00 [facility] BASIC METABOLIC PANEL 2022-04-07 05:05:00 [facility]OV[facility] ([facility] & 2022-04-06 21:32:00 [facility] CT ABDOMEN PELVIS W 2021-07-24 18:00:55 Glenn Paulson [facility] CONTRAST Medical Branch URINALYSIS 2021-07-24 17:39:00 Singer [facility] LIPASE 2021-07-24 16:33:00 [facility] COMP. METABOLIC PANEL 2021-07-24 16:33:00 Glenn Paulson [facility] ([id number]) Medical Branch CBC WITH DIFF 2021-07-24 16:33:00 Paulson, [facility] NOTICE OF PRIVACY 2021-07-24 16:11:11 Doctor Unassigned, No [facility] PRACTICES Name Medical Branch REPORT OF PROCEDURE - 2021-05-06 16:07:30 Juan Alberto Shelton [facility] ENDOSCOPY URL Center ERCP,DIRECT VISUALIZATION 2021-05-06 15:00:00 Juan Alberto Shelton [facility] SPY GLASS Center PROCEDURE W/ C-ARM 2021-05-06 15:00:00 Juan Alberto Shelton [facility] S t [facility] ERCP,BALLOON SWEEPING 2021-05-06 15:00:00 Juan Alberto Shelton I [facility] CBC W/PLT COUNT & AUTO 2021-05-06 05:51:00 [facility] DIFFERENTIAL [facility] BASIC METABOLIC PANEL (7) 2021-05-06 05:51:[address] [facility] HEPATIC FUNCTION PANEL 2021-05-06 05:51:[address] [facility] ABORH, MANUAL 2021-05-05 05:07:00 Zunilda Rubin [facility] TYPE AND SCREEN, 2021-05-05 04:14:00 [facility] PROTHROMBIN TIME/INR 2021-05-05 04:14:00 [facility] SARS-COV2/RT-PCR ([facility] & 2021-05-05 00:18:00 [facility] REF LABS) [facility] BLOOD GAS, VENOUS 2021-05-05 00:14:00 [facility] KETONE, BLOOD 2021-05-05 00:14:00 [facility] HIGH SENSITIVITY TROPONIN 2021-05-05 00:14:00 Cherie Faustin [facility] ED ECG INTERPRETATION 2021-05-04 23:15:17 [facility] BASIC METABOLIC PANEL (7) 2021-05-04 21:30:00 [facility] HE[facility] FUNCTION PANEL 2021-05-04 21:30:00 Kaleida Healthhollie [facility] AMYLASE 2021-05-04 21:30:00 Kaleida Healthteresa [facility] LIPASE 2021-05-04 21:30:00 [facility] CBC W/PLT COUNT & AUTO 2021-05-04 19:37:00 [facility] ECG 12-LEAD 2021-05-04 19:22:33 Unknown, Hl7 [facility] POCT-GLUCOSE METER 2021-03-11 08:21:00 Berna Boonecharly [facility] COMPREHENSIVE METABOLIC 2021-03-11 06:09:00 Encampment Clive [facility] REPORT OF PROCEDURE - 2021-03-10 23:43:51 Kathy [facility] ENDOSCOPY URL [facility] POCT-GLUCOSE METER 2021-03-10 16:43:00 Paolo [facility] POCT-GLUCOSE METER 2021-03-10 12:45:00 [facility] [place] ERCP 2021-03-10 12:02:00 Desiree Duggan [facility] ERCP,PAPILLOTOMY 2021-03-10 11:31:[address] [facility] PROCEDURE W/ C-ARM 2021-03-10 11:31:00 Santiagovan [facility] ERCP,BALLOON SWEEPING 2021-03-10 11:31:00 [facility] POCT-GLUCOSE METER 2021-03-10 09:07:00 [facility] CBC (HEMOGRAM ONLY) 2021-03-10 04:50:00 EncampmentClive [facility] COMPREHENSIVE METABOLIC 2021-03-10 04:50:00 Encampment [facility] HEMOGLOBIN A1C 2021-03-10 04:50:00 Encampment [facility] POCT-GLUCOSE METER 2021-03-09 23:54:00 Paolo [facility] SARS-COV2/RT-PCR ([facility] & 2021-03-09 20:13:00 Desiree Duggan [facility] REF LABS) [facility] POCT-GLUCOSE METER 2021-03-09 17:22:00 [facility] MR ABDOMEN WITHOUT IV 2021-03-09 15:38:00 [facility] CONTRAST MRCP Center POCT-GLUCOSE METER 2021-03-09 12:22:00 [facility]INALYSIS W/ REFLEX 2021-03-09 10:56:00 [facility] URINE CULTURE Center HEPATIC FUNCTION PANEL 2021-03-09 05:25:00 [facility] PROTHROMBIN TIME/INR 2021-03-09 05:25:00 [facility] MAGNESIUM 2021-03-09 05:25:00 [facility] BASIC METABOLIC PANEL (7) 2021-03-09 05:25:00 [facility] CBC W/PLT COUNT & AUTO 2021-03-09 05:25:[address] [facility] HEMOGLOBIN A1C 2021-03-09 05:25:00 [facility] MRI Brain wo contrast 2018-02-08 00:00:[id number] Brain w/wo contrast 2018-02-01 00:[id number]bl[facility] Plan of Care Planned Activity Planned Date Details Comments Source Future Scheduled 2023-05-13 Influenza Vaccine (#1) [facility] [code = Influenza Medical Ce nter Vaccine (#1)] Future Scheduled 2023-05-13 Influenza Vaccine (#1) [facility]00 [code = Influenza Medical Ce nter Vaccine (#1)] Future Scheduled 2023-05-[address] [facility] 00:00:00 (Season Ended) [code = Medic al Center INFLUENZA VACCINE (Season Ended)] Future Scheduled 2023-05-[address] [facility] 00:00:00 (Season Ended) [code = Medic al Center INFLUENZA VACCINE (Season Ended)] Future Scheduled 2023-05-[address] [facility] 00:00:00 (Season Ended) [code = Medic al Center INFLUENZA VACCINE (Season Ended)] Future Scheduled 2022-09-[address] [facility] 00:00:00 (12+) [code = Medical Center DEPRESSION SCREENING (12+)] Future Scheduled 2022-09-12 FALLS RISK SCREENING [facility] 00:00:00 [code = FALLS RISK Medical C enter SCREENING] Future Scheduled 2022-09-[address] [facility] 00:00:00 (12+) [code = Medical Center DEPRESSION SCREENING (12+)] Future Scheduled 2022-09-[address] [facility] 00:00:00 (12+) [code = Medical Center DEPRESSION SCREENING (12+)] Future Scheduled 2022-09-12 FALLS RISK SCREENING [facility] 00:00:00 [code = FALLS RISK Medical C enter SCREENING] Future Scheduled 2022-09-12 FALLS RISK SCREENING [facility] 00:00:00 [code = FALLS RISK Medical C enter SCREENING] Future Scheduled 2022-09-[address] [facility] 00:00:00 (12+) [code = [facility] DEPRESSION SCREENING (12+)] Future Scheduled 2022-09-12 FALLS RISK SCREENING [facility] 00:00:00 [code = FALLS RISK Medical C enter SCREENING] Future Scheduled 2022-09-[address] [facility] 00:00:00 (12+) [code = [facility] DEPRESSION SCREENING (12+)] Future Scheduled 2022-09-[address] [facility] 00:00:00 (12+) [code = [facility] DEPRESSION SCREENING (12+)] Future Scheduled 2022-09-12 FALLS RISK SCREENING [facility] 00:00:00 [code = FALLS RISK Medical C enter SCREENING] Future Scheduled 2022-09-12 FALLS RISK SCREENING CHI [...] RISK Medical C enter SCREENING] Future Scheduled 2022-05-13 INFLUENZA VACCINE (#1) C [...] Medical Ce nter VACCINE (#1)] Future Scheduled 2021-09-[address] [facility]procedure[facility] [code = [id number]] Future Scheduled 2021-09-[address] [facility] 00:00:00 measurement (procedure) [facility] [code = 18149665] Future Scheduled 2021-09-[address] [facility] 00:00:00 measurement (procedure) [facility] [code = 01344138] Future Scheduled 2021-09-[address] [facility] 00:00:00 measurement (procedure) [facility] [code = 71405405] Future Scheduled 2021-09-[address] [facility] 00:00:00 measurement (procedure) [facility] [code = 84448830] Future Scheduled 2021-09-[address] [facility] 00:00:00 measurement (procedure) [facility] [code = 72204830] Future Scheduled 2021-09-[address] [facility] 00:00:00 measurement (procedure) [facility] [code = 13844840] Future Scheduled 2021-09-[address] [facility] 00:00:00 measurement (procedure) [facility] [code = 49471591] Future Scheduled 2021-09-[address] [facility] 00:00:00 measurement (procedure) [facility] [code = 78119029] Future Scheduled 2021-09-[address] [facility] 00:00:00 measurement (procedure) [facility] [code = 78170112] Future Scheduled 2021-05-13 INFLUENZA VACCINE (#1) C [...] - Booster for Pfizer series)] Future Scheduled 2021-01-06 COVID-19 VACCINE (3 - [facility] Booster for Pfizer Medical C enter series) [code = COVID-19 VACCINE (3 - Booster for Pfizer series)] Future Scheduled 2021-01-06 COVID-19 VACCINE (3 - [facility]00 Booster for Pfizer Medical C enter series) [code = COVID-19 VACCINE (3 - Booster for Pfizer series)] Future Scheduled 2021-01-06 COVID-19 VACCINE (3 - [id number] PCV13) [code = PNEUMOCOCCAL 65+ YRS (1 of 1 - [id number]_Kkxozhl PCV13)] Future Scheduled 2013 PNEUMOCOCCAL 65+ YRS ([address] [facility] 00:00:00 of 1 - [id number][facility] PCV13) [code = PNEUMOCOCCAL 65+ YRS (1 of 1 - [id number]_Gwvhigu PCV13)] Future Scheduled 2013 PNEUMOCOCCAL 65+ YRS ([address] [facility] 00:00:00 of 1 - [id number][facility] PCV13) [code = PNEUMOCOCCAL 65+ YRS (1 of 1 - [id number]_Eyuveik PCV13)] Future Scheduled 2013 PNEUMOCOCCAL 65+ YRS ([address] [facility] 00:00:00 of 1 - [id number][facility] PCV13) [code = PNEUMOCOCCAL 65+ YRS (1 of 1 - [id number]_Rbyfoda PCV13)] Future Scheduled 2004-10-14 MEDICARE ANNUAL [facility] [...] of 2)] Future Scheduled 1967 DTAP[facility]TDAP/TD [facility]:00 (1 - Tdap) [code = Medical C enter DTAP/TDAP/TD VACCINES (1 - Tdap)] Future Scheduled 1967 DTAP[facility]TDAP/TD [facility]INES [facility]:00:00 (1 - Tdap) [code = Medical C enter DTAP/TDAP/TD VACCINES (1 - Tdap)] Future Scheduled 1967 DTAP[facility]TDAP/TD [facility]ES [facility]:00:00 (1 - Tdap) [code = Medical C enter DTAP/TDAP/TD VACCINES (1 - Tdap)] Future Scheduled 1967 DTAP[facility]TDAP/TD V[facility]INES [facility]:00:00 (1 - Tdap) [code = Medical C enter DTAP/TDAP/TD VACCINES (1 - Tdap)] Future Scheduled 1967 DTAP[facility]TDAP/TD V[facility]INES [facility]:00:00 (1 - Tdap) [code = Medical C enter DTAP/TDAP/TD VACCINES (1 - Tdap)] Future Scheduled 1967 DTAP/TDAP/TD V[facility]INES [facility]:00:00 (1 - Tdap) [code = Medical C enter DTAP/TDAP/TD VACCINES (1 - Tdap)] Future Scheduled 1967 DTAP/TDAP/TD V[facility]INES [facility]:00:00 (1 - Tdap) [code = Medical C enter DTAP/TDAP/TD VACCINES (1 - Tdap)] Future Scheduled 1967 DTAP[facility]TDAP/TD V[facility]INES [facility]:00:00 (1 - [...] 00:00:00 examination Medical Center (regime/therapy) [code = 635350332] Future Scheduled 1958 Urine screening for [facility] 00:00:00 protein (procedure) Medical Center [code = 648515351] Future Scheduled 1958 DIABETIC EYE EXAM [code [facility] 00:00:00 = DIABETIC EYE EXAM] Medical Center Future Scheduled [address] [facility] examination Medical Center (regime/therapy) [code = 430691606] Future Scheduled 1958 Urine screening for [facility] 00:00:00 protein (procedure) Medical Center [code = 589576225] Future Scheduled 1958 DIABETIC EYE EXAM [code [facility] 00:00:00 = DIABETIC EYE EXAM] Medical Center Future Scheduled [address] [facility] 00:[facility]:00 examination Medical Center (regime/therapy) [code = 400682214] Future Scheduled 1958 Urine screening for [facility] 00:00:00 protein (procedure) Medical Center [code = 265512965] Future Scheduled 1958 DIABETIC EYE EXAM [code [facility] 00:00:00 = DIABETIC EYE EXAM] Medical Center Future Scheduled [address] [facility] 00:[facility]:00 examination Medical Center (regime/therapy) [code = 427506739] Future Scheduled 1958 Urine screening for [facility] 00:00:00 protein (procedure) Medical Center [code = 069737869] Future Scheduled 1958 DIABETIC EYE EXAM [code [facility] 00:00:00 = DIABETIC EYE EXAM] Medical Center Future Scheduled [address] [facility] 00:00:00 examination Medical Center (regime/therapy) [code = 377238946] Future Scheduled 1958 Urine screening for [facility] 00:00:00 protein (procedure) Medical Center [code = 489237598] Future Scheduled 1958 DIABETIC EYE EXAM [code [facility] 00:00:00 = DIABETIC EYE EXAM] Medical Center Future Scheduled [address] [facility] 00:00:00 examination Medical Center (regime/therapy) [code = 790888996] Future Scheduled 1958 Urine screening for [facility] 00:00:00 protein (procedure) Medical Center [code = 676047810] Future Scheduled 1958 DIABETIC EYE EXAM [code [facility] 00:00:00 = DIABETIC EYE EXAM] Medical Center Future Scheduled [address] [facility] 00:00:00 examination Medical Center (regime/therapy) [code = 492604479] Future Scheduled 1958 Urine screening for [facility] 00:00:00 protein (procedure) Medical Center [code = 898720702] Future Scheduled 1958 DIABETIC EYE EXAM [code [facility] 00:00:00 = DIABETIC EYE EXAM] Medical Center Future Scheduled [address] [facility] 00:00:00 examination Medical Center (regime/therapy) [code = 161883820] Future Scheduled 1958 Urine screening for [facility] 00:00:00 protein (procedure) Medical Center [code = 845448998] Future Scheduled 1958 DIABETIC EYE EXAM [code [facility] 00:00:00 = DIABETIC EYE EXAM] Medical Center Future Scheduled [address] [facility] 00:00:00 examination Medical Center (regime/therapy) [code = 535286587] Future Scheduled 1958 Urine screening for [facility] 00:00:00 protein (procedure) Medical Center [code = 046279478] Future Scheduled 1958 DIABETIC EYE EXAM [code [facility] 00:00:00 = DIABETIC EYE EXAM] Medical Center Future Scheduled [address] [facility] 00:00:00 examination Medical Center (regime/therapy) [code = 033701258] Future Scheduled 1958 Urine screening for [facility] 00:00:00 protein (procedure) Medical Center [code = 989750300] Future Scheduled 1954 PNEUMOCOCCAL 65+ YRS (1 [...] colon Medical Ce nter (procedure) [code = 894372975] Future Scheduled 1948 Screening for malignant [facility] 00:00:00 neoplasm of breast Medical C enter (procedure) [code = 195098600] Future Scheduled 1948 Screening for malignant [facility] 00:00:00 neoplasm of colon Medical Ce nter (procedure) [code = 383232982] Future Scheduled 1948 Screening for malignant [facility] 00:00:00 neoplasm of breast Medical C enter (procedure) [code = 751582390] Future Scheduled 1948 Screening for malignant [facility] 00:00:00 neoplasm of colon Medical Ce nter (procedure) [code = 696755715] Future Scheduled 1948 Screening for malignant [facility] 00:00:00 neoplasm of breast Medical C enter (procedure) [code = 350000363] Future Scheduled 1948 Screening for malignant [facility] 00:00:00 neoplasm of colon Medical Ce nter (procedure) [code = 636723969] Future Scheduled 1948 Screening for malignant [facility] 00:00:00 neoplasm of breast Medical C enter (procedure) [code = 953562594] Future Scheduled 1948 Screening for malignant [facility] 00:00:00 neoplasm of colon Medical Ce nter (procedure) [code = 464150127] Future Scheduled 1948 Screening for malignant [facility] 00:00:00 neoplasm of breast Medical C enter (procedure) [code = 928459459] Future Scheduled 1948 CT Colonography (combo) [facility] 00:00:00 [code = CT Colonography [facility] (combo)] Future Scheduled 1948 Screening for malignant [facility] 00:00:00 neoplasm of colon Medical Ce nter (procedure) [code = 071082147] Future Scheduled 1948 Screening for malignant [facility] 00:00:00 neoplasm of colon Medical Ce nter (procedure) [code = 849304788] Future Scheduled 1948 DXA SCAN [code = DXA [facility] 00:00:00 SCAN] [facility] Future Scheduled 1948 Screening for malignant [facility] 00:00:00 neoplasm of colon Medical Ce nter (procedure) [code = 066887748] Future Scheduled 1948 Screening for malignant [facility] 00:00:00 neoplasm of colon Medical Ce nter (procedure) [code = 515298409] Future Scheduled 1948 Sigmoidoscopy [code = [facility]] [facility] Future Scheduled 1948 Sigmoidoscopy [code = [facility] Sigmoidoscopy] [facility] Cent[facility] Future Scheduled 1948 Screening for malignant [facility] 00:00:00 neoplasm of breast Medical C enter (procedure) [code = 163415069] Future Scheduled 1948 CT Colonography (combo) [facility] 00:00:00 [code = CT Colonography [facility] (combo)] Future Scheduled 1948 Screening for malignant [facility] 00:00:00 neoplasm of colon Medical Ce nter (procedure) [code = 685434971] Future Scheduled 1948 Screening for malignant [facility] 00:00:00 neoplasm of colon Medical Ce nter (procedure) [code = 230080248] Future Scheduled 1948 DXA SCAN [code = DXA [facility] 00:00:00 SCAN] [facility] Future Scheduled 1948 Screening for malignant [facility] 00:00:00 neoplasm of colon Medical Ce nter (procedure) [code = 853610497] Future Scheduled 1948 Screening for malignant [facility] 00:00:00 neoplasm of colon Medical Ce nter (procedure) [code = 679110761] Future Scheduled 1948 Sigmoidoscopy [code = [facility] S[facility]oscopy] [facility] Future Scheduled 1948 Screening for malignant [facility] 00:00:00 neoplasm of breast Medical C enter (procedure) [code = 126620664] Future Scheduled 1948 CT Colonography (combo) [facility] 00:00:00 [code = CT Colonography [facility] (combo)] Future Scheduled 1948 Screening for malignant [facility] 00:00:00 neoplasm of colon Medical Ce nter (procedure) [code = 349421958] Future Scheduled 1948 Screening for malignant [facility] 00:00:00 neoplasm of colon Medical Ce nter (procedure) [code = 548581827] Future Scheduled 1948 DXA SCAN [code = DXA [facility] 00:00:00 SCAN] [facility] Future Scheduled 1948 Screening for malignant [facility] 00:00:00 neoplasm of colon Medical Ce nter (procedure) [code = 691000891] Future Scheduled 1948 Screening for malignant [facility] 00:00:00 neoplasm of colon Medical Ce nter (procedure) [code = 112031928] Future Scheduled 1948 Sigmoidoscopy [code = [facility] S[facility]oidoscopy] [facility] Future Scheduled 1948 Screening for malignant [facility] 00:00:00 neoplasm of breast Medical C enter (procedure) [code = 024778173] Future Scheduled 1948 CT Colonography (combo) [facility] 00:00:00 [code = CT Colonography [facility] (combo)] Future Scheduled 1948 Screening for malignant [facility] 00:00:00 neoplasm of colon Medical Ce nter (procedure) [code = 061122568] Future Scheduled 1948 Screening for malignant [facility] 00:00:00 neoplasm of colon Medical Ce nter (procedure) [code = 902021342] Future Scheduled 1948 DXA SCAN [code = DXA [facility] 00:00:00 SCAN] [facility] Future Scheduled 1948 DXA SCAN [code = DXA [facility] 00:00:00 SCAN] [facility] Future Scheduled 1948 Screening for malignant [facility] 00:00:00 neoplasm of colon Medical Ce nter (procedure) [code = 253517778] Future Scheduled 1948 Screening for malignant [facility] 00:00:00 neoplasm of colon Medical Ce nter (procedure) [code = 556461483] Future Scheduled 1948 Sigmoidoscopy [code = [facility] S[facility]oscopy] [facility] Future Scheduled 1948 Screening for malignant [facility] 00:00:00 neoplasm of breast Medical C enter (procedure) [code = 820730115] Future Scheduled 1948 CT Colonography (combo) [facility] 00:00:00 [code = CT Colonography [facility] (combo)] Future Scheduled 1948 Screening for malignant [facility] 00:00:00 neoplasm of colon Medical Ce nter (procedure) [code = 235923591] Future Scheduled 1948 Screening for malignant [facility] 00:00:00 neoplasm of colon Medical Ce nter (procedure) [code = 686973167] Future Scheduled 1948 DXA SCAN [code = DXA [facility] 00:00:00 SCAN] [facility] Future Scheduled 1948 Screening for malignant [facility] 00:00:00 neoplasm of colon Medical Ce nter (procedure) [code = 950649891] Future Scheduled 1948 Screening for malignant [facility] 00:00:00 neoplasm of colon Medical Ce nter (procedure) [code = 195423938] Future Scheduled 1948 Screening for malignant [facility] 00:00:00 neoplasm of colon Medical Ce nter (procedure) [code = 200712132] Future Scheduled 1948 Sigmoidoscopy [code = [facility]] [facility] Future Scheduled 1948 Screening for malignant [facility] 00:00:00 neoplasm of colon Medical Ce nter (procedure) [code = 618230730] Future Scheduled 1948 Sigmoidoscopy [code = [facility] 00:[facility] S[facility]oidoscopy] [facility] Future Scheduled 1948 Screening for malignant [facility] 00:00:00 neoplasm of breast Medical C enter (procedure) [code = 019697420] Future Scheduled 1948 CT Colonography (combo) [facility] 00:00:00 [code = CT Colonography [facility] (combo)] Future Scheduled 1948 Screening for malignant [facility] 00:00:00 neoplasm of colon Medical Ce nter (procedure) [code = 485116366] Future Scheduled 1948 Screening for malignant [facility] 00:00:00 neoplasm of colon Medical Ce nter (procedure) [code = 904378982] Future Scheduled 1948 DXA SCAN [code = DXA [facility] 00:00:00 SCAN] [facility] Future Scheduled 1948 Screening for malignant [facility] 00:00:00 neoplasm of colon Medical Ce nter (procedure) [code = 149641095] Future Scheduled 1948 Screening for malignant [facility] 00:00:00 neoplasm of breast Medical C enter (procedure) [code = 288783680] Future Scheduled 1948 CT Colonography (combo) [facility] 00:00:00 [code = CT Colonography [facility] (combo)] Future Scheduled 1948 Screening for malignant [facility] 00:00:00 neoplasm of colon Medical Ce nter (procedure) [code = 722822175] Future Scheduled 1948 Screening for malignant [facility] 00:00:00 neoplasm of colon Medical Ce nter (procedure) [code = 934313739] Future Scheduled 1948 DXA SCAN [code = DXA [facility] 00:00:00 SCAN] [facility] Future Scheduled 1948 Screening for malignant [facility] 00:00:00 neoplasm of colon Medical Ce nter (procedure) [code = 178574204] Future Scheduled 1948 Screening for malignant [facility] 00:00:00 neoplasm of colon Medical Ce nter (procedure) [code = 067140320] Future Scheduled 1948 Sigmoidoscopy [code = [facility]] [facility] Future Scheduled 1948 Screening for malignant [facility] 00:00:00 neoplasm of colon Medical Ce nter (procedure) [code = 368001599] Future Scheduled 1948 Sigmoidoscopy [code = [facility] 00:[facility]] [facility] Future Scheduled 1948 Screening for malignant [facility] 00:00:00 neoplasm of breast Medical C enter (procedure) [code = 865953879] Future Scheduled 1948 CT Colonography (combo) [facility] 00:00:00 [code = CT Colonography [facility] (combo)] Future Scheduled 1948 Screening for malignant [facility] 00:00:00 neoplasm of colon Medical Ce nter (procedure) [code = 247093005] Future Scheduled 1948 Screening for malignant [facility] 00:00:00 neoplasm of colon Medical Ce nter (procedure) [code = 558815537] Future Scheduled 1948 DXA SCAN [code = DXA [facility] 00:00:00 SCAN] [facility] Future Scheduled 1948 Screening for malignant [facility] 00:00:00 neoplasm of colon Medical Ce nter (procedure) [code = 432317079] Future Scheduled 1948 Screening for malignant [facility] 00:00:00 neoplasm of colon Medical Ce nter (procedure) [code = 345040693] Future Scheduled 1948 Sigmoidoscopy [code = [facility]] [facility] Future Scheduled 1948 Screening for malignant [facility] 00:00:00 neoplasm of breast Medical C enter (procedure) [code = 636800138] Future Scheduled 1948 CT Colonography (combo) [facility] 00:00:00 [code = CT Colonography [facility] (combo)] Future Scheduled 1948 Screening for malignant [facility] 00:00:00 neoplasm of colon Medical Ce nter (procedure) [code = 912610158] Future Scheduled 1948 Screening for malignant [facility] 00:00:00 neoplasm of colon Medical Ce nter (procedure) [code = 714166598] Future Scheduled 1948 Screening for malignant [facility] 00:00:00 neoplasm of breast Medical C enter (procedure) [code = 459085778] Future Scheduled 1948 DXA SCAN [code = DXA [facility] 00:00:00 SCAN] [facility] Future Scheduled 1948 Screening for malignant [facility] 00:00:00 neoplasm of colon Medical Ce nter (procedure) [code = 118029206] Future Scheduled 1948 Screening for malignant [facility] 00:00:00 neoplasm of colon Medical Ce nter (procedure) [code = 404255062] Future Scheduled 1948 Sigmoidoscopy [code = [facility] S[facility]] [facility] Future Scheduled 1948 CT Colonography (combo) [facility] 00:00:00 [code = CT Colonography [facility] (combo)] Future Scheduled 1948 Screening for malignant [facility] 00:00:00 neoplasm of breast Medical C enter (procedure) [code = 941691779] Future Scheduled 1948 CT Colonography (combo) [facility] 00:00:00 [code = CT Colonography [facility] (combo)] Future Scheduled 1948 Screening for malignant [facility] 00:00:00 neoplasm of colon Medical Ce nter (procedure) [code = 538679006] Future Scheduled 1948 Screening for malignant [facility] 00:00:00 neoplasm of colon Medical Ce nter (procedure) [code = 994429864] Future Scheduled 1948 DXA SCAN [code = DXA [facility] 00:00:00 SCAN] [facility] Future Scheduled 1948 Screening for malignant [facility] 00:00:00 neoplasm of colon Medical Ce nter (procedure) [code = 491104659] Future Scheduled 1948 Screening for malignant [facility] 00:00:00 neoplasm of colon Medical Ce nter (procedure) [code = 165918744] Future Scheduled 1948 Screening for malignant [facility] 00:00:00 neoplasm of colon Medical Ce nter (procedure) [code = 870704198] Future Scheduled 1948 Sigmoidoscopy [code = [facility] 00:[facility] S[facility]] [facility] Future Scheduled 1948 Screening for malignant [facility] 00:00:00 neoplasm of colon Medical Ce nter (procedure) [code = 836514806] Future Scheduled 1948 Screening for malignant [facility] 00:00:00 neoplasm of breast Medical C enter (procedure) [code = 762231236] Future Scheduled 1948 CT Colonography (combo) [facility] 00:00:00 [code = CT Colonography [facility] (combo)] Future Scheduled 1948 Screening for malignant [facility] 00:00:00 neoplasm of colon Medical Ce nter (procedure) [code = 656150997] Future Scheduled 1948 Screening for malignant [facility] 00:00:00 neoplasm of colon Medical Ce nter (procedure) [code = 526770110] Future Scheduled 1948 DXA SCAN [code = DXA [facility] 00:00:00 SCAN] [facility] Future Scheduled 1948 Screening for malignant [facility] 00:00:00 neoplasm of colon Medical Ce nter (procedure) [code = 896776223] Encounters Start End Encounter Admission Attending Care Care Encounter Source Date/Time Date/Time Type Type Clinicians Facility Department ID 2022-04-[address] [facility] [id number] [facility] 16:46:00 Encounter [facility] 2022-04-[address] [facility] [id number] [facility] 16:46:00 Encounter [facility] 2021-06-21 Inpatient ER ADIO, SLE Gastro [id number] SLE 02:39:12 [place] 2023-03-02 2023-03-02 Orders Doctor COLLADO 1.2.840.114 [id number] Univers 00:00:00 00:00:00 Only Unassigned, ARIS 350.1.13.10 ity of [place] [facility] 4.2.7.2.686 Arnie as [phone] [address] 2023-01-05 2023-01-05 Orders Doctor COLLADO 1.2.840.114 [id number] Univers 00:00:00 00:00:00 Only Unassigned, ARIS 350.1.13.10 ity of [place] [facility] 4.2.7.2.686 Ranie as [phone] [address] 2022-10-27 2022-10-27 [facility] [id number] Univers 14:45:00 14:45:00 BALDOMERO [facility] 2022-10-21 2022-10-21 Outpatient R MA[facility]A [facility] [id number] Univers 09:45:00 10:16:42 BALDOMERO [facility] 2022-10-21 2022-10-21 [facility] [id number] [facility] 09:45:00 10:16:42 Visit Baldomero ANGLIN 350.1.13.10 it y of [place] 4.2.7.2.686 Arnie as DERIK?BLEA [phone] Az jermaine JOHNSON 198 [facility] OFFICE [facility] 2022-10-13 2022-10-13 Outpatient R MAIRA [facility] [id number] Univers 15:30:00 15:30:00 BALDOMERO ity of [facility] 2022-10-11 2022-10-11 Telephone [facility] 1.2.840.114 10 [id number] Univers 00:00:00 00:00:00 Baldomero ANGLIN 350.1.13.10 it y of [place] 4.2.7.2.686 Arnie as DERIK?BLEA [phone] Az jermaine JONHSON 198 [facility] 2022-10-08 2022-10-08 Telephone [facility] 1.2.840.114 10 [id number] Univers 00:00:00 00:00:00 Baldomero ANGLIN 350.1.13.10 it y of [place] 4.2.7.2.686 Arnie as DERIK?BLEA [phone] Az jermaine JOHNSON 198 [facility] 2022-10-06 2022-10-06 Telephone [facility] 1.2.840.114 10 [id number] Univers 00:00:00 00:00:00 Baldomero AGNLIN 350.1.13.10 it y of [place] 4.2.7.2.686 Arnie as DERIK?BLEA [phone] Az jermaine JOHNSON 198 [facility] 2022-10-04 2022-10-04 [facility], Ang - Db [facility] 1.2.840.1 14 [id number] Univers 15:15:00 15:30:00 Visit Baldomero Rao 350.1.13.10 ity of [place] 4.2.7.2.686 Arnie as DERIK?BLEA [phone] Az jermaine JOHNSON 353 [facility] 2022-10-04 2022-10-04 Outpatient R [facility] [id number] Univers 14:30:00 15:22:10 BALDOMERO ity of [facility] 2022-10-04 2022-10-04 Office Maira NJCOLBY [id number] [facility] 14:30:00 15:22:10 Visit Baldomero ANGLIN 350.1.13.10 it y of [place] 4.2.7.2.686 Arnie as DERIK?BLEA [phone] Az jermaine JOHNSON 198 [facility] OFFICE [facility] 2022-10-04 2022-10-04 Orders Doctor HEAVEN 1.2.840.114 [id number] Univers 00:00:00 00:00:00 Only Unassigned, ARIS 350.1.13.10 ity [place] [facility] 4.2.7.2.686 Arnie as [phone] [address] 2022-10-01 2022-10-01 Telephone Maira NJCOLBY 1.2.840.114 10 [id number] Univers 00:00:00 00:00:00 Baldomero ANGLIN 350.1.13.10 it y of [place] 4.2.7.2.686 Arnie as DERIK?BLEA [phone] Az jermaine BARRETTIRAM 044 [facility] OFFICE [facility] 2022-09-28 2022-09-28 Orders Doctor HEAVEN 1.2.840.114 [id number] Univers 00:00:00 00:00:00 Only Unassigned, ARIS 350.1.13.10 ity of [place] [facility] 4.2.7.2.686 Arnie as [phone] [address] 2022-04-06 2022-04-13 [facility] [id number] [facility] 16:50:00 19:40:00 Encounter Rosa Isela Ching [facility] 2022-04-06 2022-04-13 [facility] [id number] [facility] 16:50:00 19:40:00 [facility] 2022-04-06 2022-04-13 Hospital [facility] [id number] 16:50:00 19:40:00 Encounter [facility] 2022-04-07 2022-04-07 Anesthesia Cerna [facility] [id number] 12:31:00 16:21:00 Event Fatou [facility] 2022-04-07 2022-04-07 Anesthesia Cerna [facility] [id number] 12:31:00 16:21:00 Event Lili [facility] 2022-04-07 2022-04-07 Surgery Greg [facility] [id number] 12:00:00 14:51:00 [facility] 2022-04-07 2022-04-07 Surgery Garza [facility] [id number] 12:00:00 14:51:00 [facility] 2022-04-07 2022-04-[address] [facility] [id number] [facility] 00:[facility]00 00:00:00 [facility] 2022-04-07 2022-04-[address] [facility] [id number] [facility] 00:00:00 00:00:00 [facility] 2021-07-24 2021-07-24 Emergency X [facility] ERT [id number] Univers 10:12:00 14:31:00 GLENN [facility] 2021-07-24 2021-07-24 Emergency [facility] [id number] Univers 10:12:00 14:31:00 Glenn DONATO 350.1.13.10 i [facility] 4.2.7.2.686 [facility] [id number] [place] [address] [address] 2021-05-04 2021-05-07 [facility] Cherie Faustin [facility] [id number] 17:37:00 10:59:[address] [place] 2021-05-06 2021-05-06 Anesthesia Quispe Denise [facility] [id number] 15:10:00 16:27:00 Event Jm Rushing [facility] 2021-05-06 2021-05-06 Surgery [place], [facility] [id number] 13:00:00 14:30:00 [facility] 2021-05-05 2021-05-[address] [facility] [id number] [facility] 00:00:00 00:00:00 [facility] 2021-05-04 2021-05-04 Emergency ER SLE Emergency [id number] SLE 17:24:00 17:24:00 2021-05-04 2021-05-04 Orders [facility] [id number] 00:00:00 00:00:00 Only [facility] 2021-05-04 2021-05-[address] [facility] [id number] [facility] 00:00:00 00:00:00 [facility] 2021-05-01 2021-05-01 Emergency E EVANGELINA, MHBL BL 7505 MHBL 16:21:00 22:56:00 [facility] 2021-03-13 2021-03-13 Telephone Ezequiel [facility] [id number] 00:00:00 00:00:00 Tyesha Galina [facility] 2021-03-08 2021-03-11 Hospital ER Paola Burnett [facility] [id number] 23:13:00 11:35:00 [facility] 2021-03-10 2021-03-10 Surgery Kathy [facility] [id number] 11:00:00 12:30:00 [facility] Kathy Rm [facility] 2021-03-10 2021-03-10 Anesthesia Josef [facility] [id number] 11:36:00 12:27:00 Event Graciela Tian BrianafFormerly [facility] 2018-02-01 2018-02-01 AppointBRENDAN Hussein [facility] [id number] [place] 08:00:00 08:00:00 t; HOLLIE ACUÑA Phy sici CHRISTINA, M.D. ans M.D. Results Test Description Test Time Test Comments Results Result Comments Source Tissue Exam 2022-04-14 16:40:15 Test Item Value Reference Range Interpretation Comme nts Case Report (test code = 104) Surgical Pathology Report Case: [id number] Authorizing Provider: Heaven Garza MD Collected: 04/07/2022 03:36 PM Ordering Location: [facility] Received: 04/07/2022 04:23 PM SERVICES Pathologist: Omari Lora MD Specimen: Femoral Head, Right Hip DIAGNOSIS (test code = 3220) g3pxmJYaZJUda7qzCSMrcZHkRmKvWtZwAdPhQt pc dWMxIHtccnRmMVxlcGljOTYwMlxhbnNpXHNwbHRw N4AqjbjyNLodYW3xMP4cgNhqjOCkmGYrDEXwIgBv u6gzz836eJXhf3diCXDFsdlxgIv2kZmfM38fn3U3 SgkoR86xcSGfKKN1INPfGBScvGIpGLQjZPR7NIGg sVSrJ4mzOMWqEF0gcnowLIxtCUccYXUvxHA1XVAr nTKwX0YsXYGjPPktTLSrnow1ZtYbPw0mnPUyqOhf USbzUFVnMAAgDGquTVXfCpBaBc7KLCwaYicCOKBt RxTHI5OPPNXHFCQNAJRNAuZAFy3YVZCYOTklvVXl BQQuQZTQYmbPDmxxSE8WEEgFXD7ZJjuAD6GuQTQI MBSNQCZYAHJSHJXFDHKVNlUJSRLGNXWTNP1LXQMs E03KS5pPMYJXCGTMPNZPACmJE7EBLcikK8TgTvGR H2IFWdDdoAMpELUbLBCOAqIWAOcED97DUwKVSQRZ XA7jkOWdwHpdxbUnCVoes0IzJJxeGXGsWB4tdTmj VWRhZT4iOSRxN7lihT3qksm2GnUfRDHpRyY0DBFv nuT8Hhl7KCZmPEbop9cce1SrNNEeZVf3lOwsMkNs ISIms5rtlwXgCzIwTKWdRCUiMGJenUDqA389g4av o9pxzxSavOS2HJFkOOH2KFmqycXqzrD4PEulzCCp RqD1ZEjkrrLaDNurorBvpmBkTub6MHGnI865HVP4 tWtgu1miLTY9JURhPPOkIhIyGt2udDOsU511YYHj XCBIJUJlaVa6VSNngtXzoxUkhXLXz738K337i5oo ONEvawXwvVhOfewzb8lkB285MAEvlJEmdrJjXdXq AESddSVfxZA7MCHhIP5czurhDGdiANrwPMAfolW2 DBUxkGQmM2SvLMDeGG0fjkchOTZ4UActAXXrKKA3 DzYvIZEkv7Miadb6LwZlca6wdn23BVZ6g6XytGlo XUN5EXS7MaBoPx2hrSFeLWSqQG8lSiJqnAApRQBh td70xKeqRCqmFPO7PVPwcjGmn9Skr6zyExIkccJi N5qfS0RrREQoFTTqBEMxAbJumqJow9Yhl6IymGYu tQp7i4jmHVXjXMVfvDvdh4uvRSI9SGMqlCHfJ7mk zB5xDULnOF9jhrboz6qcTGeeJSxnDCTcuJK6zxY4 NQFgrMBhQ3QyzW0tOSWhBKplRMFwood6EqLtFa9j dGVyeTcyMFxzYmtwYWdlXHBnbmNvbnRccGduZGVj XHBsYWluXHBsYWluXGYwXGZzMjRccWxcbGFuZzEw JuRdnRsnrCpoMRamVmPiWWJdGWqgY2qlMiZuRdVf Btg5HUZqhBRkVKPjOee1BILfaTShWZEQbSqqtN0i PMAjdPbtlX2cdEO6HWGwadJgmYPJdA9dQWMVlN2a GkN5LxCcFcX1FFz0BuXknMZctY9= CPT Code(s) (test code = 3837) d5hjoUIvFARagAO5JxAaPIAqu7mbo3VmeZCt cGFy OVwskGCkscIbsp68iKI6iK27CJ1wBGEiPwM7MYQd ncJ2Nme4UCQrREAyjQAvG210j9nqg7ckmcJzeGR8 jEdnBSXbivqeKeL5YJiiAZVccjkoCDq7TKzfJJAx tBP1BGDjlKTaE8YwKDEfAN0sgeq5MGP1GVngSNTv WuZ0RIMxeIBtSUYzzBoqVYfvv025WZB6DuIgAEXa haChxRamlB2kQrOgXXN9UULmQWshCUyuJSGvvHSv fQ== CLINICAL HISTORY (test code = 5816) d8mbuVRlPKGveIO1EgGvNJGhd0exj4J sdHBncGFy DFbgqZDbqgGbyv60xKF8lK28UR5sKEGcEvL8PLPx gvS0Psd6QFGkQYTrmXFnP405p3zsu8pgnfTieFH7 QLGeUBUaV9HbZI7sXLFcrENsK45ueVVbWCH4PFQg MUPacARcAYKnJIP8OKQyhMUxG2nzKUVfYD4ndsjd DCvgDIxlMWBfgTU8XNMuoSIiV5RaNMToDJzxLZLd bkp1QgPsNr3qpXUsrXsmLJloTPQpDNPaTNmqfEDb lomqcpAiCOCrGPBPTWfXPUAUEFPnFjKRJ3DJBjJk cGFyfQ== SPECIMEN SOURCE (test code = 3377) b2qwlMNvPMBkuBP7ZcQeRZHfl8aaa4Vf dHBncGFy DAbmbYRrjxSrkf85tJC7rI07NS4cRHNxNeB8ULVt rwP0Fgw5DFUrDGOtiNIcC163n4eei9htebIddRA0 gEheWCOgryojSpL5YYlcIURfxfifDJv1IJjsBSUj jCV9LROysHQqI1QjSVJpAK6hdpe2XZH2NCyfDMXf DdP1JCRipVTaPFFofCxgEJwki237KNN4IaWtNHCn vyArfJxhhZ5hDfNuTMFBLqJFKS5nfnXqUAgnYPOn FPBfI8c4FUjoeG5pmUDxnP== GROSS DESCRIPTION (test code = n5vneJUjMGVfrET6PkIkHPVzk5fmp3IclPRk cGFy [id number]) LKzcaWTgzqWmzm76vNE2kX47BF1qZNGtIuK0UOMu dcS5Evv3PULfFJJbqKFkZ434z1nwj3byemUkrUX4 OQQuNJOmT2YvPO0nIXZeaTVaR89bmFFbMJL2AVQb WBMvqOSeYACyGBY1DSRmoLUdI2reVPMlPG4mfhck GBegNLjhAUOduPO3YJFjyABuS9JwVWPjVCvkFXGj wkm7MeHsTi1rlEWcqWjgXVxtDZFpw4hhJLYxoKKg AAO6IGhklLCiKFFlAXHuIOy9CRYkWVnbiQEdEK5q aBytUxwieVpwh1YskTSuJWecFIDkPUKbMGukUBNb Q2SEYBGdIvk7XWrpSmVeIFd1PTjbM7FMVRVpUXQ6 DMH8FSOuVdQ0PJc2EQTUDd4uENx1AeL7JdD0BPM0 DcL0TQxavNQsAAfhBeyxSKlpPDFlnNVtSXizngW7 UKBzBIuaKSKfHfPuYP7pZiYuo6RomNHSXUUfQFEZ aWdodCBIaXAuXHBhclxmczIwXGNmMSBSZWNlaXZl ZCBmcmVzaCBsYWJlbGVkIHdpdGggdGhlIHBhdGll erYlvgIuXA9fRJFlB2Uxu0Til13ufsUvUfUqSCSa FCLcsadwuCMcnXgyZFKfaY9vNMyqjZDdYRPioSDk RXI3ByBnvCL4OsQjjWHkAcNtR24bDoDxd8KyoRYv QSXwZGoejNykXLWoPKxzASIvAFkfaK5tdjqpJ8kd SBU3cexpS3VbRD3aoqibqv5zTSMsMEMfahRiH2Dn LKJau2UgKcOhTLDhxwSleY2mnMfxvE2eDkkbRMv4 IBfoXE51tUZtFwYxVPjhKJR4yFIqwLOvKGIpPAsy ZBXsrb22ZUbjh1mpMRWvNfL7j4UeqZPfGM5tgtFn ZHaxZcHtuQD6fKQevKZgI1axRLJ6rnXwXKV2nZM7 DJWzXD4eGYSgum6sCFPZGWAeBQLvkbOufFe0JDPz DFQ4lA2xroRdftPbx4QesXo0bDGkLMqiUAJnTUBo CCTyiBtmy5gjWnCsBKNwnTSgZrerVOExi41iFKri eXnupNlfDF8tcckmpeLuxcSGBW3pwQlqICshlV6c BDIqaNUnBFOmX7VnvMkpinwdUSWrMLaSXLsYR9XS VLsuOPGeE6ZqW8YdocO1u3wqeLasq1WtuQLbTV8a cGFyfQ== MICROSCOPIC DESCRIPTION (test code = a7ttsVGdQYYuoQR4KtTnYAPix5ear6 BsdHBncGFy 3371) WFvbpJKvsvWwlj42xEA8eU74LN4zLSXdFoN2ZXTo zaJ7Rzk8FTPmMWLzpKKhB847a3zyw2zyxiQuqNF0 pIaxCKMabjfjIlV2QMtsXFHllqrjYNg5MEqkXBAz iNQ7UEPrmLAsI5RqBUZvAK4dczw7YWX3IOunFUHr AdB5KVInqMXfGFBtbIpcGNlba763QHC4EaKfBOOg lzUdbRtnxD9oDcZqQTFBAMOiv8PtCOUwUATipn0= Gross assessment was performed at (test [facility] enter, code = 2777) Department of Pathology, [address] [place] [address], Technical component was performed at [facility] er, (test code = 2778) Department of Pathology, [address] [place] [address], Professional component was performed at [facility] enter, (test code = 2779) Department of Pathology, [address] [place] [address], [facility]ijx0553-34-04 16:40:15 Test Item Value Reference Range Interpretation Comments Case Report (test code Surgical Pathology = 104) Report Case: [id number] Authorizing Provider: Heaven Garza MD Collected: 04/07/2022 03:36 PM Ordering Location: [facility] Received: 04/07/2022 04:23 PM SERVICES Pathologist: Omari Lora MD Specimen: Femoral Head, Right Hip DIAGNOSIS (test code = h8yfrRWeWIFng3yoSCTcnSO 3220) uZzEwMzNcZnRuYmpcdWMxIH tccnRmMVxlcGljOTYwMlxhb cFzTFTrkGXeD7KtfyrbFLkw KT1lNV2orDmonRQmzVKyFPO uRbUpa0ipt930mWQed6cqID WGvhngaCd6iPiwJ99ep5F7M xjtH20ilOTyCRO1NIXqKIZy oUFaMTFjGXX2QKShaLWoL4f lGDNuXT1pydadXFofVDpjVO CwvUR8NMCbjHDwP0KaYQUvS KqbMGSiaeh2EhQyZw1sfWMi eTcyMFxwYXJkXHBsYWluXGZ sNkGwDy0DSPskRuqTHKBbVh KTD8QTURJFEXRWWWNYQhVWO u3YFNGBNEeabNMuNBOcYEKA CndRNaerPG3HPEcSWC4FDnz SQ4HaKGSGXYAPKHLEYRWXFY GJYUAEUvGKOGZHECZBTP8UE YPbR41IV7bLDYGIPQNALNIY PYiDS9TMDcvyP5PmMvEBO9O VUkVccGFyICAgLSBOTyBNQU nQR59FWcNKICONIY1nyIGsy BjjrlQyAWlia4TcCFlaFOQm GP1bqBxyUDPiPG4iFQAmJ2c sqT9uqzj3JbSpFELyBsH8CX SbvwS1Aps5NOIyFNqnc1yqc 5JuUJRxIWt0xOhhGiXyTATc l0arkxBeKgUzMDPiQGAfLED vdTFjT371x9inl1tlnvMvkN Q0QIPqZYT3CEiitoAnjuX7T FosfMExFqE3FStuirCsHNhd gtSwtlBsFgl1QHAbL510AIU 3vRzzg2kzLKC6DYHyUCReCe GkZt4srGNlE754XNInANUNO MIdoOk2GQRbiiIjwgMdnBYL p662R441s3itOGOgcsXvuXl Bxglnt2suE612XAYlcTAnnk ImTpUnFXHreQQbzEB2SQXfX Z1wgufuJVbzWKwbXEFvfxM3 UHFwtASbB1DfWLIgXA1ljia bQLT1LHpfUDMlZOF6ZiDkKE Mbz6Hutrj3LoKyvn3yqn97D UF9f6TrkDukSQW6TJM4VbPy Jk7jsDOoMSGvUI6wWmLecQV rPQTqdp50iArcVEskCLU8UO HwdtQrc3Ene7muBbFxnpUsT 7amW5SvORDvFDEkYXDqUlNo dvYje0Ktm9NogDImiPa9s8d hPFEgIESbyMxns4hjCTI7TU ThzCXbR8kmtR7vRIVbYV5js qmtf0kaDNrmLAcsZIUjdEX8 dhT3MWWfoLJsZ5OajJ7mLOA mHOzlEKRzsfa2FsTwBa2sgU VyeTcyMFxzYmtwYWdlXHBnb mNvbnRccGduZGVjXHBsYWlu XHBsYWluXGYwXGZzMjRccWx cbGFuZzEwMzNcaGljaFxmMV tdUdVkBENaXXjbZ1lfZjCjZ lVrOta0FIJhxGAgDHXbKii6 APYkfCXvYHJPjHrvuH9sDBQ xdUrgfW3szIP0CSSuguBrlY MVjM7zXBYQwQ3zNxM3DnVmA fA2NRr9SnVmkHDxhH0= CPT Code(s) (test code i0qciFSjXHFpkDV8DhWcNKX = 3357) ff6jsj2EhvNUvjXJzXVuzdZ QmdxLern14hWZ4fG28MY8vM MVrNbQ1CTZoteI5Ysi8CCHc TPPovXXlO158o5alq8oybcJ ioIZ5zZpfLCPywettRsU3WK ibGTRoigmuHRx0QWnqARGvc NT7MGAqzJPsT7EuGFWsJI1s xmx8FVO9KDusRUZvMkE5AUM ofRWvSYSlkLrpVSvdg777KS H8BiKvAPCywxKlrCxiyA2tS pLfWAK9JADgOIxtZRezTDRl cGFyfQ== CLINICAL HISTORY (test u7xmeXViJLDcyKG5CdBbPPL code = 3356) ck0kzg8HtuEZcpJWxFWaofU BfpzIrjg91bQH2lL21ZS8wJ TWpWsN8CAQihqZ2Pmo9YVCv PYNbaIZaJ668a6cqr0dcwzY gjZR6QOWoCVInA7TlYA0jKO RpuXVpM16cpIEoPID2ONKkO YTsoUXvYUOtQAX4UOBcfXKd V0tuFGFrPP9opbaxGZqoZZn kOUMkxFV1ZKZqpYHsV7KsVP NaOOagQDZsswi3ChFsBz2uc GVyeTcyMFxwYXJkXHJpMVxw bGFpblxmczIwXGNmMSBSSUd JIGXYBKCmYaEYQ8DKCuEpoW FyfQ== SPECIMEN SOURCE (test t3wghFTwRLUdwZM3HuBeMEZ code = 3377) tl5tlf8RluEAdsWObULykdM EzefIjvv05rQW8dU63ZG2xW YCtPgR2GRKczuS2Nuk4NRQs VFKqyNHqG869r5wcg5eclbV ziXL9eJcwLNBmrhtpYyG2EX rrUDUarzqnUXh2XUtoYFYsw QA7FIWlgRZmK4CqVULuNC2g vwj5UFA7BYqgPQPtHfJ6UOL cjCLbHXXmgKnqFEstm711KV G4JbQcEZYszwYpeSxwfB9fO nHpLKJUKoSBBQ1lcwYpTWde MOLwSNEeO7j9YJxjcC0ctZA yfQ== GROSS DESCRIPTION j7wcpEYeVBMglUB0MyAfTAI (test code = zs7dlh0SihKZzlWLfOQrxqY [id number]) VqcgXbve22cCP0aO30IG1yV FOcIrC3ISPnuzQ9Lhu2FDZa KFUvgVTuF065h7nyg6zsusZ ghHP7KFPiZHOrE2HzDT1oGY LcgPRpG56ozICeZAI1KGYrJ MDxtGLzMWCeCNG0VXBojLGz M8crUTMnYS6uuznbWYcaMGk aQLEqeNL0WEZkcHZfW6AxUH XwRMfaJFMwnvk4GgKoEx8so PXptCfwOPnhCUImj9nuEWWn vRTaRER2CSxtyRNgAJTtCXH tGGp5UBEqHJljtVFcCO5yfL gxGmxpiEtpm0CakUYgMYvjE MGrEFOaXEovMHFrD0BHEXHw Kqn3INnjXcJzCBe6DTcjT9Y KKDWkXXO0MJB9YDBwXkA5MZ y8ZKKWQl2yVZf4CsF3MrT4M LG7VjA6YZykpZBuDFdpWfsx OWapJFRadIYuQUpqflL1BEX oFXbwUFCnCxQjBI8wRwVyo9 JhbCBIZWFkLCBSaWdodCBIa XAuXHBhclxmczIwXGNmMSBS ZWNlaXZlZCBmcmVzaCBsYWJ lbGVkIHdpdGggdGhlIHBhdG gettYgmqHkOO6jPANnC7Gyh 5Yga69nmqZwWcLlMHGwIFEk nlfdxKNeiDxuPHAcwL0zSQz adZEjTRQcqURlEBT2BuNzaS N6RdFodOPeUyQiE41lMvZuz 3JhbCBoZWFkIHdpdGggYSBq RIpsZDDgPVhokL6qndjcI0r pVCU6aqqzV3VyQH6hjsrdna 3xAEAcXDSdgbImN2ZcNKFjr 3DzWlIuVZVoqxEerF8rpImn pU6aGvaeANa5ZAokWA58yDX zEfYaTOrmNWP8hHKyoBFhNI DjOGxiOHMhvl35ZKonm7byF MVvZgK9q2BtoRAgCR1dzeYa LSzmIfEcqWL3tDJqmHIvU9h pBON7ovUhXYD6qME0CPZeAT 9qCXMicv7fRAMBPKDsPOLmj cFanCk0UAMlETD5yI1vtoOz vyNri2BlvCj4gRBbXFgrTIF qWZQhRKHizLbbs5pfXhVeIS BcfZDnQnegFXNwj53gCWqqt LwudBlhQF3dwjmqlaKbrbOC MH5fvUruWAgwsL1nOJKlbGL aKZMxV7LefMwkxchuVYLwCM gJFBvKY4MYFRwvPIOvN6GiJ 5GdicF6i0mljDaod9EuuQHm GK2duOYkoM== MICROSCOPIC u4fekJXoJLZtoVH8QeEeVEQ DESCRIPTION (test code gw7fvh2DgfJSclWCdKZwwiZ = 3371) LjshQwqz99vAA2uX78MJ4cC DQbNoY2UANedqQ6Dsp0EECu KCAumWQbK735h1uhr7amrtL dvRK1nUfgCMBjalsjTuD4FU qbGMGciopmIDz0RDtuRDPar QG9YUJlkQUpQ0ItJWToUK2g ybq9LVA8GFdvMAFcStW1OVU biUOuQTTfnEvsHAobl429AP D5UiAaKBYopdVkiPoasD7zF mBmOZFBGUBzm7JhHFFcTIVb cn0= Gross assessment was [facility] performed at ([facility], code = 2777) Department of Pathology, [address] [place] [id number], Technical component [facility] was performed at ([facility], code = 2778) Department of Pathology, [address] [place] [address], Professional component [facility] was performed at ([facility], code = 2779) Department of Pathology, [address] [place] [address], [facility] CenterTissue [id number] 16:40:15 Test Item Value Reference Range Interpretation Comments Case Report (test code Surgical Pathology = 104) Report Case: [id number] Authorizing Provider: Heaven Garza MD Collected: 04/07/2022 03:36 PM Ordering Location: [facility] Received: 04/07/2022 04:23 PM SERVICES Pathologist: Omari Lora MD Specimen: Femoral Head, Right Hip DIAGNOSIS (test code = [id number] 3220) uZzEwMzNcZnRuYmpcdWMxIH tccnRmMVxlcGljOTYwMlxhb fRtOABafPYeE6XnzmllWZpe HN9dLK0rfWeyaZXwjXRyITQ cXlWst5suz834zAVkx6jkOG ASpjeawOx1oOykF28hu8O2B haoY54gxQQmGGY8EXLeZBRa pUQgQAGjMWL1SFShjQZjW7e gDKJrAS5twsufCMprMHvlFV WdfNJ2NBVxkTZqX7WjLXWlU UziESHmkgs6VsTlVo2zvVMe eTcyMFxwYXJkXHBsYWluXGZ aOwFeNg8RBQezBefFQMKiJx ATX0SWBNQXITAXRAGCZiCRJ b6ZRUBWJJxthSQbJESjKOCS HguERqllTF7WYMrSDX5YMqe LK3JuFRLUULBSXHJSDWOSTC LSTJNNCqVLPGLFUIPIJI6CJ NMqC06YE8uPTCYUQOUEEDXN EVhJW5SOXjsgD1DlUhQKX7K VUkVccGFyICAgLSBOTyBNQU mSJ95JRbOHLQLSWM5egCNzq MjkqdWrVMzac2IyYWweKCQy US3umExzYHSwOF6mLPOqJ6x yaV0oeki7TeHxIABrEpA6CG BxoaX0Zru7HUKqKBshn2mjn 3QrYCAaHVn4eCocKgYnOMBf h2stzwCfYiRtOIIfYWCiXSD paQJvI461i0bhk5ellkKroB I4BRFzQQP4VMbqczHkbmE6Z RocmFBuMqH9JAboxxAuGZxh doAdkeUmGlv2KVMyB990RBB 4xPelb3poXFB8QXQvCNDpPz GnNj1vaTMhT362FDOcHMCFU IQctLd7AULjveEinlWuiQHP k829E584p9cdMNLccwGfiYk Louynz0pzP798WZVowOWbfm RaHyQzQXNdrSUbyOK4QKTuG N3pmejeRCafBXfrBZLxphB2 WXWbtQUcR2AuYXQnQP2tzgs iUIH5GLymKDFnGMH0XfWcHP Qkd6Xfsku3JdLuol5ynu79O YJ2f3QioBdoFCR3OSF9YtNn Pe2hjYMkOBYrRI6fWvKmhBQ bMAWcus81hSkzQKsgBEA6EG LyobLgw3Bwg0jbVjOrtiFqQ 7osO0FpHHAwGEUzCRVlNuWf mhAkk7Tpg6XxvQTslAo6u9c bNQTlYJAlkHhde1jfQVA6TC CcoNYaK7hapQ7sCQRkYU5oe ebtd4gjODpzURyuUZGvnWL1 duD0CNBevZDuK6XknV5wPST kLBilDMMxaai3PkVxFj4jtZ VyeTcyMFxzYmtwYWdlXHBnb mNvbnRccGduZGVjXHBsYWlu XHBsYWluXGYwXGZzMjRccWx cbGFuZzEwMzNcaGljaFxmMV jpWmUsCXRjYLeeE9ohAbNeT pShAik0HZTshJCtJMSbQmu4 CELivJFxJCTJrEkwsA8zOEY uuItrrZ9uaMC8FVQqarFrkR CSwF2qXWYTzV6pFsT6QbSrF fI7JRg2PlMwcDSwqB6= CPT Code(s) (test code r2fodVHpAROhmPY4UhZzFKI = 3357) tm7nrn4EikFCmcGLwNJtmcI KuqmKjkb91oUR6jI68JT8vI XXxJyJ7XASycuT9Fvp5LCYm HFKdbUGhX964x2cel2swghC ouBS6tQwwNTBpzbghJeO8LS nxHBPauddtOZu8XLiiCVMhl WH7IEBjhFVfR8CqDAKzRO7n ukw1RLX2ZRefCWFmZqS9YAQ tyFGsWNIayUhcNNxoo343DC P0EbKcPNSnkuDzuSkpuJ7iH dQrDAD3WFIxRJndATddLAYw cGFyfQ== CLINICAL HISTORY (test v8zsmYIpMQPxnXH8FrJpKUC code = 3356) vi8spe3RxrMSwtWYxPWebyU JfvyVgyq90wQO5yF60SP9yL AQaWdQ9MIAdtyG7Qbc9ZLFb QZAccEWxA051v8reh9ettsC tsIN9JNMyRXCvH3EjVT9zLK QysPWgT92zqJWxREN2VBJsD SYgxYMhEZHvLRV0ZGLnaYGp K7nvXMVgBN4ohzutLEbrNLu fJUEuePS1QOBgvRJtE0ZaDE LrTWwlHDJfebl7KvHqYc4fy GVyeTcyMFxwYXJkXHJpMVxw bGFpblxmczIwXGNmMSBSSUd JRWSJWMJgDjPZI8DOIlIfnD FyfQ== SPECIMEN SOURCE (test y1otkDRrMEIhzYO1EjTmWET code = 3377) pl4fyw4MaiGAeaIYyDWvuwO LdvlHxvu31yZB4iE66OK6fX GMdDoS7KKEdviS5Skl2AMQy YCDtsNVpG974k3jqj1ysxvA pbNF8rMyaJVNbawmaLaF0NL tdAIBgszutMOp6DKtfBRWnx ZB7BITfcMVuA7YmQGDxNU2e czp3GHP1JUkdCHQcEzF0PEK ixELiRRJbiPprSJgzc106VP E6GrExLAWkdkYqeMdhxR0iM lPcDMLWJhRMCM8awzGhNTxe PMHvFRHmI9y9SAbxcR8ugLW yfQ== GROSS DESCRIPTION t2bksZScDEUwtYE7OcZlEDT (test code = uv5etl6PxlTQriQHqUAzlkS [id number]) KalhXxjn01qUS0lA44LH1mU QWzQpN7XFLygpU1Pbr2GFOl PCXlfSEhG940s7tcq0zcyqW azCD4RBHbFYHcK2OdIY1sDT SjlFEoX31oxDPoWWQ1GANhS RBrkKAaPLDmACF1DZWzjAGa V5dfOQAiEF4nqiuhHUqmZKc oVSWvcCX8NFDrqCLjT7EsXV MpHNzoBDXmyys5KnImRl9bj AWftJgxSVzqROUcm3shPSPh lSLiOSK5VAdgfBYvCJAvCDR cAXd2BYFgBEgpnDNrMC9lwY fiDyibcMowg9NiwGDoKQlfL IRvJGKiUNklSOOxX1XGINOq Wbo0LAwjHmEbXZy9QXrdH7Z YINZpNYB6YTS1DEWrIiI7WW z7QERHVm6iTYu7KbY1SxT8R IF4JgG7RGyjgCLcDJnsIfjj MTmbOJRdeQTuMPqoemD8VKA fGCxcMEEuLwGoMS3xOsNgr0 JhbCBIZWFkLCBSaWdodCBIa XAuXHBhclxmczIwXGNmMSBS ZWNlaXZlZCBmcmVzaCBsYWJ lbGVkIHdpdGggdGhlIHBhdG uieaMcymHnIQ1hUVUiS4Fyh 9Jfi24fmrBvExMbSDFfRCRm qdhwgOGogVzmRNUgxJ8kIOm xdYLaWYYpeOLgOET6TcMdiZ H8MyLhoVNmNhZuX15dHxPgj 3JhbCBoZWFkIHdpdGggYSBq BTwnJNEfIZbzhS3yrilwJ5i aVQD0iaqjE3YhVL6kagvogn 6yBHTvEPKzkxToX5DlRRNdw 1PnMeGyJIGbhpTgjV5boXiw sK9iLrenUTz6NKzpPN33kWL mVaBxOLamVXT6cDOvbWSmVI EzEOonEQItuw61MEfuu5vwZ JLrUjG7g6PuhVYuSU0qmiNp RGotDnIwzNF9iVHcvOKsQ2u cOPI8onItRLX8eDC0DUQdED 0pSQUjmj4zTWTBRHIyVQAtx vMmiWr1PFSuMVJ1hU8chcQd qfYfx2DhcYl7tWFeBMtaCVM fRRXxPUKmjSlog6lrWsXlBN WflOItEbkmBZNhe61yFFjyx IqmzKbrDL6qvvsvviKqtwYH MW2rxBobLGpsqZ3rBLVruCI yQTJfR6QvhFszpichJKOkNL zTRPeYF3SLZEzwYSPcX5KaE 7KlwvH7u8gyeKnxd6WkhTQe SR5elZKahQ== MICROSCOPIC n9fztEIxTBDpdQP3ShEdQOZ DESCRIPTION (test code os4wvq1BbhKUziQGoDWxfbU = 3371) NwpqBlsq49rJY4eZ34YG4zM ZWhQjC4MTQhmvD8Wde9RCHi HXUeuQVyP807p3lch1yualV rzXK4lObiKEHdlqicBlU5QD vpHTKrbvxoHDu7NPqlHXGky VV0PBSzoDGvF7RbMUOnLG4b ktm7JPG8XMmfZKFyQfC7KGS nyEXcIMSpmLaaHAmgw535EJ M7FyFjHMMqyiIouRthgO6xI eYlNSYHPMJef8RlFQBjOYEk cn0= Gross assessment was [facility] performed at ([facility], code = 2777) Department of Pathology, [address] [place] [address], Technical component [facility] was performed at ([facility], code = 2778) Department of Pathology, [address] [place] [address], Professional component [facility] was performed at ([facility], code = 2779) Department of Pathology, [address] [place] [address], [facility] CenterTise [id number] 16:40:15 Test Item Value Reference Range Interpretation Comments Case Report (test code Surgical Pathology = 104) Report Case: [id number] Authorizing Provider: Heaven Garza MD Collected: 04/07/2022 03:36 PM Ordering Location: [facility] Received: 04/07/2022 04:23 PM SERVICES Pathologist: Omari Lora MD Specimen: Femoral Head, Right Hip DIAGNOSIS (test code = [id number] 3220) uZzEwMzNcZnRuYmpcdWMxIH tccnRmMVxlcGljOTYwMlxhb aFmNSZwbLFmQ1UjcideZUgq VH0gCS6bsAhpyQRoaBSiBXZ tGcInr5htv038nNLpq0xtLL ADrxitkYl0wUdcQ81qo6E8L krgS96mrCZnYUW1IFJcLIUc kVTlNQAvMCD5QGKnvQOuX0m iLOFwWV0tzlkyKFxpZEeuST DtvXJ4HRAflJLhY9SxLLRsL YyuPKZdwnc7CnIjWn2oqFCh eTcyMFxwYXJkXHBsYWluXGZ hQrRpAp7PFYtqWzsAFEGjBy DWC3CLLEUPFEKGIAFIAhRTS b2JAPDPNWptbCWkQGUhZCMG WbiBVerdRD4UQRtHHQ9XTgs GR1IiVZRRJVTYOGLZZHBWML HGZSURMzPDMRQZVKXYKD4SR FDaW27CV6nINQDUYOQZRGMC MDhUW5BIFekzI0ZfEaQHU3N VUkVccGFyICAgLSBOTyBNQU wCK18ZOaEMQNBSWG5joDWln EcvotRzKCypl3RyFNftRBYr EQ4ftDbzBHAbVA0jZWWyC0a qdX2coqw6LxHgBWQoQeR3NV SrmoX3Izd4QFLmWYzpv4ylw 4XiZMDsXJt2oJdnKnWyHZDw k4uczjJxIdKbQEGyIZYyNYK qxTRoZ563k2nev9gdalIfgY B3GBFrBLD4FAgqqtWizfD2S AvkyOVoUpJ6NLzzirVaFKct cfHrtuZoXwy0LDLqL741OJT 7pXfxi2mrKKI0ZZJoWKQfJv DdNs9pdWXeU957OOHbIHZFQ AFdfEo4MMVbqpUgdkNiiHLL o070G896y7hxEXAtlhCjkEy Gjbdlo7fhZ367BAWzjMCfun HwQcKdIKPkrJEzvTT6CUEqN T6fanfkTJmbBWjqKYZoakT5 BFTnfBDjG4EhYIFjEU9oipb sMDT9LExbKLKzNDV3OeZnDQ Was3Ishwy0QwHhkl4zhb59G BK5i4VgcBhkWVA6UBA4KpEn Oz2doURlRBBzTQ4zUkVizRD aZLSoxp31pSbzNUlkDSO9TX LqcgIpq6Dum8omSpEugvZlJ 4rqY5IxTMEuCNDbOIKuZsSg lqXvx8Ywk1VfxTUzrSr7k1i rNKPjUYUckDxev7brULW0IC UbxPCcK2hryX0cISTxRN1zz apvr8thSAhaCJopEVSfqFK6 zsQ0IGCweMJkI1FxlX4vIPO vGLubIDSazvn3AeUoLh5rnQ VyeTcyMFxzYmtwYWdlXHBnb mNvbnRccGduZGVjXHBsYWlu XHBsYWluXGYwXGZzMjRccWx cbGFuZzEwMzNcaGljaFxmMV aiXxWkRQHqBSoqM9avJvZwL eMhHfa3AAUkwXVvZWOaAhi8 OHLbtFHqJXXAkJnmhI7pFBC vvYgpeC2hgIZ5SVUasqMxcH GCyP6pCFOTiJ6nYbF9TcJwM iB4TFo6UaYhbBKtdU1= CPT Code(s) (test code a1yrlLBiMOAxbWC0IfUpIAB = 3357) sr7dsk5XvrFAjcGKpFWuogH OkevYeea41zDZ0eX70UH3lK OFjLhF6SPOrtqY7Pxm3GADu LDQsnELrU257k8fvp0knblJ xaEE8aQlpLPIoanaxPoT4MY yfOXNuvigaFDr6SCgrFHXbj EP6HGRrgHDoL5OwJQPmXA6x krr9DDD3FQroVDQwBgD5XLR sxLQtJFLjaCuoXKlot306HP Y1JoYdBGLuasBiiTsyfM7kZ aNzLQU4LOUaQLatCDtpXPCm cGFyfQ== CLINICAL HISTORY (test q4asdGXsBQDltWA6XaLuQWR code = 3356) te8fdh1RhiHYimGOyLRafnF XihoEdhi45lNE9aN27IY7rS EYgOtP1PVVbprL8Rjo8MYDc WOWscWJuS490j0lzd4qroaC fsHE0BFPwDRIoL0VyHW6oFM WwlTQaT39bmXWbWIA8LLCsJ UIcjEBkUELvYPA2QTXahWEc O0lyKJLtXW8dftkfEQxtQFg mGTUrjCG2WFAivJEvP4VwAJ MzTSabGRZaboh4RrQnSb9jx GVyeTcyMFxwYXJkXHJpMVxw bGFpblxmczIwXGNmMSBSSUd TWTNKXAOgAzBEZ5JLGuZvhS FyfQ== SPECIMEN SOURCE (test a9qrwFTdHEIvfFE1XlLzNHK code = 3377) oi7sci9NpzIGqvEPnOGsmuQ QrjpAbyd74eVJ4jR96JN5fK HUjFoD3HMSbtbY8Kjb7RBGo LYZaxETpB266z4hcf3wgafG tmJN4vFbvOQEqipdeFgD5RC odATShknlnMFc7CVngOYFat VU2TCDfwCPwW1ImGDCiBW3i bnw9GVM9GVcbJBHtBwQ8NWR arNCeIXKbiWykCVofs766ZU F8XvKqTNRtvyUxxRpgyR2lQ yXaTYNNBrCJSZ9sowCbEPof OFXaFKRtC5s4XDxlfK4ycQA yfQ== GROSS DESCRIPTION w7fwiPDkJAMarCZ5AmQlQHX (test code = om8bvm2BxwWHecPEiPHlxxY [id number]) NfgwVotc60rYW4kG19TT2rX FEmXjT8VGZicnG3Kcu6QRCt VGAdwCDvW647u1nrg5rmcrH hzEB8KEFjTJWoW9OoNN6wBA ZdfWRgH16zlMRrEYH7FIGiH OPhdSAtZMFbHTR2ATExsHCg W9seBEGrGX9mmyyoISkfZRk qPSIeaRX9QYGylDZeB2VfSJ XbPRecTDSmgdf8XgOhRz2ku GSauBscGZxyQFXii0xkBWFq qAFcHYN9FQwriIQcQYSjOVC pBRp5OENeFYhamXSuRT2ouC jiYxnhtZyxh9NzcRTjYIchC OZuYCTsYLdhMBHlQ4EZJMDu Sjv1FOwzPpEoOKt3UUteS8M GKNVgKZM5FJG8IQNqWbG6EA r7ZLNSMu9zDId0QsZ6JrZ6Z QH3HoS4ADecpLOtDEcwYpmk YLmvWGKeqULnIFaxvmD6OSE wNDttAEWwFuWvPN2tAkYtk7 JhbCBIZWFkLCBSaWdodCBIa XAuXHBhclxmczIwXGNmMSBS ZWNlaXZlZCBmcmVzaCBsYWJ lbGVkIHdpdGggdGhlIHBhdG cwtmNgedGjCV4nCQItP4Qkm 3Baz86zzkOlKyEgAXJdOKNt gpgvcDPbuBjrECMukF9uCTu pwPBbQMXtsYIlPMV1AzJmsQ C3DmZmxFRwAoGsS18lVyPra 3JhbCBoZWFkIHdpdGggYSBq JSxmDLPvIJpeeX7rgulsU7n qIGR7tzfxU5OyKB1mvmrmns 4jMJVeDBVzbpViM7VqLTNah 7PsWgBfGQWcbxBxrL4xvThr tO1hTfqwDNr4IDquNV95dPD pFaKlTHqsVNM2aXEyvGNjPN YvZBllCAQtfn87SGsbm7paI BJuEoN4z5LwyXJbEV7gplGz CWhnWjYgnFH0aLEouSVzV4n cXFA2gxYpBUI9fNO3FMXkGI 3jBPEnxe7wTQLHFFMcBHRct wUmpQm8VEFkONZ3oT6injHg vqSju0LygCq3pYInMWnaMHQ sOJCmRNYamItzb9xwLhLoMW NnyKRoLhdwYFJtt17qJFelp AcjyWxcFQ8bzcfqmzVqidSM LI8hoWsnNGwtiW8bTTFfaMN pDQPaT0VotGuuzuxmVNSjSS yVZRlPD3BBLFfiAZIpZ7WyJ 3VwrdA3c7vsiQeyj0KtsXWp AL8lnHLmnV== MICROSCOPIC m4pfcOEkNYRppSR8OdAqSBM DESCRIPTION (test code br5asn2MvoXHkiUScXHhhtP = 3371) ThzhLusv22eJM6wK69GS7zN OLjFhR6KZDrhaI7Dcn3LHNf NUCvvXWdJ847v1hfx8mufkF mmNV2qSjzFSKotwbsFfJ8WY gtUKQneuqeVPb0FSdhTNRaz JP6TIBbkKCrK7EjILHyUX1q urz7JDV7USosRVUiZmT5KIE wfWAlJDFiyHhbTFbez073IT L9GdRfRTFdniRdqZgypW7oD fHcGRULNTKys0DfIYEkMUEq cn0= Gross assessment was [facility] performed at ([facility], code = 2777) Department of Pathology, [address] [place] [address]792, Technical component [facility] was performed at ([facility], code = 2778) Department of Pathology, [address] [place] [address], Professional component [facility] was performed at ([facility], code = 2779) Department of Pathology, [address] [place] [address], [id number] 16:40:15 Test Item Value Reference Range Interpretation Comments Case Report (test code Surgical Pathology = 104) Report Case: [id number] Authorizing Provider: Heaven Garza MD Collected: 04/07/2022 03:36 PM Ordering Location: [facility] Received: 04/07/2022 04:23 PM SERVICES Pathologist: Omari Lora MD Specimen: Femoral Head, Right Hip DIAGNOSIS (test code = m5bblXNzSIXza8giSEStiXO 3220) uZzEwMzNcZnRuYmpcdWMxIH tccnRmMVxlcGljOTYwMlxhb uHcYCEgaGQbE9MwsgmtLUtf UM2yYW4awEflzQHgzEQmREY aQvApm1tjg954yXIrn7dvAL WUagdeiGp2pYjpQ69em1K3Q fqhQ97lyIYvKKC6NDIeDYGc bGGuNIXrRXD6CYGqxZByT2a nOIBlDQ1lfrehNXorRMlgSR KxiJT7OZDidVJzD1RdVEAhU YwdYJBswyt6KkNxRs6goDGm eTcyMFxwYXJkXHBsYWluXGZ mDwMhMx2IZRolKtlVJQOeCj HDE5SEIOJXFDLGWMPXGhNFF v3OPPZDMYdsfBKvTHLbSDZN MtmBWpnjUI0LAEdOTS5SPld UZ4PcBWADFQBLTTZCZQWTJN LSBWWUDbBXGOPBFLVRGA7AY MRhT98KM2kJMQOJVHBCNVGA CXjJO7KEXuapS1TaJkKRP0R VUkVccGFyICAgLSBOTyBNQU oVK38KIdBPOGRPKW8iuVOvg QtzzvWwPIert7XeHNmtRYYq LA7xeMrqOLLfPM6wTNKoB6a yzJ2urao7MkSlJBUiUhY3RO WpnnG5Sjw1YMRfWKbou1lep 9XgZVWzPIn2rAzfMcFiGBNy v2uhuvInMvEiGELvSKKaETQ oeVBfU726f1liz8ntbfCypZ D8AJEkART9KNtgupXrgaX4D MpahLOjVwF5CLeksjGpODnf maHwltDoLua6CNLtH002NDQ 4uClol1jlYKJ7BECaYODjVm PuJc5kpAZyL909UJYgDREVN WBoiWe9NYZzunEcghFdzDTO n281Y175r5oxOXByzdJzzQv Ywsfzy2ioJ115ORPvsCRdtx ZmQoFwDISwbVPhaYB3XTInW Y1xfybrJHqtNAasOSOqxaC9 WZXtoVFsO2TaAUFxLH6wgsu nUKY6YOfaWRJiNPC2ZkUpBP Rlh3Htpfr5BnBqho1miv73F OH9m6CwvApkKGV0OMX0SeYe Sz9ajKQzTHPnEW4jVrSzmDB pUWZgph49qPpfIHfjAZV9GI KoiiRwu3Icl9gfWtPbfaYdB 0gvK3HmWOFkCFEdZKBhJwLk loVvk5Vpz7ZmgDXlmRf8z4u xDSTpODPahMnsg1ujBUI8IT VerORkR9gitZ5qHBDzBY8te othc5mzBNfiEZroLZDkuDF6 mrQ5ZYKdlTUmC8PwbQ0cZTA cVKbdEUPxdry0KcArZf8aiZ VyeTcyMFxzYmtwYWdlXHBnb mNvbnRccGduZGVjXHBsYWlu XHBsYWluXGYwXGZzMjRccWx cbGFuZzEwMzNcaGljaFxmMV ktGyRiHVOoRZhpJ0txVuZfL pYtIrk7CJMkeFNiTPRxJny6 WNFlsRQnNRUGhFkabI4kNYC dyHlinB3ynNS9TAVdgkNgtA WPmF8yPSEGoG5lSdT1KwLfO qA8WFe7ZbXlwVLlkE0= CPT Code(s) (test code u3jsxBFoOWVnxIL5CqPhRGB = 3357) ix5ymu4TvwBTreNFeLDzdnI GnotJnvf96yFK7iB43HF5vP WAtDiB1XDYpskO3Hqi9PSBn PMRzsPSiE427i5cib4xyxyB mvGE8dDybDCWumjqoWzW0YF ldLEUaygetYGc6RQukTTHyr BP5HWHraCCtN9DwIKOuEO7r ybn0DOC9JCcjRBHuUkT9IJU oeEIuTMAisTdgLQtsz272YL L3OkYrKRXpmgDbgKswwB5eA hJsEQS6EHMoTQzcSYgmWNTc cGFyfQ== CLINICAL HISTORY (test g6xmuYQhBDOedJQ0DzQpCYI code = 3356) xc0vbf8AfaWNalKBiTXpfoM SswuQggk15aQV5zD35YC8kC DEjNsV8HWDislG5Ffa0ALIq HPZevAPvQ924c9nxh1drstS puHN0GIVeBSDfQ8AvAE7hDT EfuSIiE08scQJzAMK9GOPvH JYyaLTcSNIiCTC4BSSekVOr S8uoOAMhDD2ohwihZEyjNVz wCOBhbIM7GOIysUHzE1JdVE LhSJrbJDReshz8RaKnZt8fy GVyeTcyMFxwYXJkXHJpMVxw bGFpblxmczIwXGNmMSBSSUd OURSYXNYfEuCGO4VDPfUyhH FyfQ== SPECIMEN SOURCE (test z3ggiRFaKJXcsQC7HrOgZSS code = 3377) ss5hvh5OlxJVqvMPlPVlhpG WrldNmcb91qNN4kQ77FF5lD VNtMlB7VBYzieO5Tls3KJQv GVNllGCxZ695h3qfd1ynaaL uuNO2bHcnMYTxudycZlF8UX nuFKHnsvkfQNk0UTtuVCSrb LV6RUPhvKHnT6KgBEIuRQ5v nua5RND4JWpqMSQoZlS5UJD lbVIuXYOnwVzvOQilk957YF B3FyUjYCMqmcBkkPjryP7xU hNjBBOKWgALAV7lxdOpENaf BRViXNIcK7n3NYgunR4roKK yfQ== GROSS DESCRIPTION e4squMBmUQVchRJ9IwFjPFU (test code = cm8mze6GkbRAttSEvXGsboJ [id number]) LtbnTswl31lGD9cC83HG0xF POoWgW7LYWjudA7Vwz4DTAe PNArpBRiL977h8hfo1vypmX huCO4WBSbZPVdC4DiSI9nBY UrkMJuF53tjJVkGBQ3YILpS DLihISfCPMiBGV5ZDLwbIVx X5ifMDCoRF5ntoxlKMteVZg aBNVgzQL4BGJgfJOcM1SvGM VtAXajTGBbbba2QfRbLt0lq OWoyOmeXDliAUQct5idURMw kWFlPAD8JWllbERxRRExBWH qRZz7ETPzTQyhaXRwDM4niT vnRuqmiGxac1RmoIYgDPsiJ NUeOTLvIQqkVLWdI7GATMOq Nso0BVtkKrBzGJq5NBgdL7A SBDXoEMO5TUI8XOUkImC4HH k4ECPCVd2jSVv9MhK7ZuC8C VD1CnU4DXvkpEViRIojLdpp GYkxWOLlkXJlYVzbhdR9XBK aYNaeYTRwKaHpPG9lFoGes5 JhbCBIZWFkLCBSaWdodCBIa XAuXHBhclxmczIwXGNmMSBS ZWNlaXZlZCBmcmVzaCBsYWJ lbGVkIHdpdGggdGhlIHBhdG ovewHdvoAdMG7vHGUpB6Kmm 0Irn56gusXbMyOoSJHuWUJi espwwDExbDjtSWCtoR3yXTt lvXIsNIKxzEPqGAR0PfKktB G5DdRypISeFaSxB56vHlGmk 3JhbCBoZWFkIHdpdGggYSBq XUmmZSEsVEnzjV1soorpU3p wEGE9gdfwB3WwSW2szxmhxp 3dOWOtEQUbwaTgV1UkUGDot 9KhUbZqHLZsmuMeiR5ntUkm sU6cAhwkLIg7PQnnVF59tYS aLhSpZHpxWVP4uLQxiLByDY LlPYutZPDawr86SZsnp2ruX DXdPrL9m7UllOOmHD9wyrBi HBytEeFnvMB6dJEcmLZgY6i uEPT6tkSlGSU4eYY0UMUyVV 7qVJBjef3zSNFLOJQqPDPnp cXehTx9UXAfRLI2iK3qwhIq cnEwn6XtvNs9eIUyGJnpCOI wXBHaRWXyeHdxl2clQzVgHP AlyFIoKdgjYETxj88pDZvmk QgepNveFQ4wshvxjiHaxeNI EW4qzQfnWFhvzI7vMJQptZT iGAZtI1UtmIjnqonuCFExEV fYWWyDQ3MHMWisZLZsX6CeZ 2QcotM2z5wgoKrue9TuhAUz RX9isGWyzI== MICROSCOPIC v3bluXAcBNIhdEY5NhMmRKQ DESCRIPTION (test code er4akh5WuwVGodOZfUWctiD = 3371) RtfxNrif68iPT1xO88GL8dG CQpOuZ7BRYfsgF6Has1FHYm SYHgqVPjZ099n1lov5aalkX omZI1hHxsRUUvbmadElM3EB wwENUnbfieNFi7XHcyLYNcd EA0SCLriGKqQ5WlXRJhSF0p xui7ZVC4HThhFXHtDpS5GQV duYViLLLytXexFRags891VT L8OnLhSICtfnMwrSexmJ3rL sPvKDOBOJGdt4LsWRQdQMSb cn0= Gross assessment was [facility] performed at ([facility], code = 2777) Department of Pathology, [address] [place] [id number], Technical component [facility] was performed at ([facility], code = 2778) Department of Pathology, [address] [place] [address]35, Professional component [facility] was performed at ([facility], code = 2779) Department of Pathology, [address] [place] [address], [facility] [id number] 16:40:15 Test Item Value Reference Range Interpretation Comments Case Report (test code Surgical Pathology = 104) Report Case: [id number] Authorizing Provider: Heaven Garza MD Collected: 04/07/2022 03:36 PM Ordering Location: [facility] Received: 04/07/2022 04:23 PM SERVICES Pathologist: Omari Lora MD Specimen: Femoral Head, Right Hip DIAGNOSIS (test code = c9hfmBJgRGKwb4fmSRAgiSS 3220) uZzEwMzNcZnRuYmpcdWMxIH tccnRmMVxlcGljOTYwMlxhb aPqGNTafKByG5TykdmjURxi IE1nEP4lxPgneOBgfBNwWLK wUiFmq2ykw951aHEjz2lrPL BUxankpHw1cYlyH72dp1G0K tsjN77whPMrGMM5ZXXfBLCq lQMbLXBmSVT9PRKijNLyT1o nWQUeGW8tzszdPQmxJGwwMN SfoQC6IWSxePDjO1ZmNZWaT HmnXKTcapq9NhEeWc0rzBZx eTcyMFxwYXJkXHBsYWluXGZ jJfUwDf3EPHrkIurTWKOzVo NOM9DMFXTOIVYNMMAUOiSMH t1SHBLNDTqxuEEiBUHzQDJB AjtXZnyzWC1FNOgEPA1YGxp RP0CmLUSVLXOPTTSBYIUDVH LTMTTUWjHAYSCHTRMQWS2IS AJrC08UU9iULYBJWIZKQQLS RAuXX3YLBkdkH7EwHlUZP1L VUkVccGFyICAgLSBOTyBNQU iFM54EYtICFINJLO3hdKEbh GreauTaAQovo5UzQCpwYCOq WV0dmVgkXEYwKT6mPBOaV7a uiR3gqkh7WtSzOOHrDpU1DV QofoD0Xqv0FCLvGMtyj1lda 5JeYGXrJXf5gUfuHwGbYYZc k1ifvdKgApGsOKAaSHCuFMB zhAYfJ895b4tok4qkmzVuiL J2GGRlHOB2QHurltThskG6P NdhdLSnQwY0XGbhxfQkMZrj udZybaXvRsl4ZEJpG768KYR 4mOlnf1kqXBP1NMQlZOFoXr TcEu0amXZuF760VIAoRDLYI UPuzZj2PKUognUdxzYylJPB s668V081l0duGUPlwsBluGz Bwvnfz6bwA598TZSatEXlbv OoJmWfTMLaoKWmwCT8QOZaW O5qilidLLdbXYleLCVhuqR8 MRVgvKTkQ8CoASDfZL0mhdo xQOD1RLtsJXMgEHI7PtVgGJ Hod2Jhchu0UfYlzk9wfo41M RP6h6UdgYcqRGM3GZD3MjWo Fo7fuJPjUEMgJT8xIvLolWL qHPIgip59jGccAYpyRAL7SG WdvkEzw8Ejd4qnAeNionQwF 2qjG4WxLNWiRFRjTYXtFiOx cwWhe5Xoq4AdsZQbdMd1s8g gDVQaAUQbaDzun0rqFXD8YO ToaAQgQ2xapE0tHEJeQP2yx qakz3bsJPswREusCCEkaUD1 dyH0AYEorIKfU4UfaR9aJTW wVLcqWXRsgzv3FqVaVm7cxN VyeTcyMFxzYmtwYWdlXHBnb mNvbnRccGduZGVjXHBsYWlu XHBsYWluXGYwXGZzMjRccWx cbGFuZzEwMzNcaGljaFxmMV fqJfWqCQEdVPjgU4maTvMcJ eEgAra2BNParEYlMNJvKzd1 QXMfiFRoHYGFgYbhnW4jMAG gwTimuU3qzUS3OCYejvArfR GKlO6uQEMYhW7lMbL4YgLlM qB0FNt0QwNpoWVmgF1= CPT Code(s) (test code e1ylgSXqTVXleWK1UcKrSGM = 3357) wv4hhb8NvgBElwIErMIiyoJ EwtyEyyd18eNB4lG21QW5pN OAmRjT8KTQrxlM0Dkr7ASXa LPRllTKyZ156k6cxu8xgkhI vmHO0vYurWUMwbeltQqF8VA mgWZHlrvxwMTd1DCviXMRvx XS1JTFbmQAjI0VmWKOuOR6l bsu6VCQ1KMjuEYAcWrW5CUZ tjDDeMNOfjFpsZWwmc975LP B4FpMpZYRzgnXpyJuiaM0iQ yLyAZT7IVTdQDbfLItaAQXe cGFyfQ== CLINICAL HISTORY (test w3noiVFhRIRxjZH4GqSjZGN code = 3356) zb1mei7BbvYXgxDJrEYxvgG ZkmuCbiv32wLF2vF01KT7rH VEoSuN8EBBgudJ7Gxy3GPSy FKIgwHIyX113e4jvz6sqtoR ryWB3PZPfYFHeB0XlBY7zIY VovGSnY27xrZHzPFI4GWVyI CDdrLTvLIKfMCX4JSXonEXn X7oyMPByOI6gpdwsAFziGKp lZIZxhMD7UMBsfURzI5UjXL SmBJsoHRSgjug6ZkKrWl9wa GVyeTcyMFxwYXJkXHJpMVxw bGFpblxmczIwXGNmMSBSSUd TZUSNVSFbZnWZB6NZJfUflG FyfQ== SPECIMEN SOURCE (test x3mzsEEiREKosQO5JdPtLZU code = 3377) vy5dwu3AmwYTnvDKhLGmhjI XnvnEsxm74yDQ9jE10ID4eW ZHeVwM8WOHdddP8Jmi1DEDr MFLviRCaA876d6ear2qhgtK soBK4iLjpYZFrjhoqMgO0PK pyUSQffxjqXJy1VSdwIXXyx JP2ZQMapELjL9AyHURuTI7o pop5LOM6GGvuHMDeOvB6VAR zmWNfYEBlgKpmALnye572JA C0JnRhLOZsgpLugEoszL7eO hKsLXOPVmTFSB5jfwHxDDju YLRjUBRwG3o4RMrmdP0efIR yfQ== GROSS DESCRIPTION m6qzoRXxCUBnbUY3PsDcGFO (test code = yg4lvi7OouJSnpQPfYFsmzT [id number]) JmsuUfil64iVF8nM50CX1tO SMqVdT6CMHdrpW0Ddr2JPSr MNUbwZQyR813a3drn2lkkrR haDY8ZLPbBLBqS3XzGL6oIS WwiNAxE19luRXuUFY5JSLjU GVhrCGiPIZcMLO5KVUdoSVj I2yjKKVkPZ0vmlrqOLbuJEs aADHlnJJ8FZPtyHGhN8FkPZ CxGIzyWIIjjdn0PxQzKz9pq ZMzkIvfEWpsRXXtv9apCXSd fXVbIFX9UYgcsZJpYHIaTUR zKYw1PZHmETadeMAbRC8uiE eyJmaxcAhmm7ZohOGoQIueH CGyVIFaFFvjQPJeM4YSFGEr Djv3KCkeZkPiBGk8CYumA5P UWZPrXLE0ASB7SQUnPmB0GW v0JPFRYs5mOXy8HcQ9CvH8H CO4WlA0OAegwXSrBFdlQubl LCrmFMJmnJYsJZiesgN6MRL vRGlxNRFhQzZuRF5bWaFtl8 JhbCBIZWFkLCBSaWdodCBIa XAuXHBhclxmczIwXGNmMSBS ZWNlaXZlZCBmcmVzaCBsYWJ lbGVkIHdpdGggdGhlIHBhdG pakvWtltDwTZ0zJEWzX7Ymb 1Dbn51usfMbIdWrRZAtOCAs befzdNHjhFkeREIqeB7eXWh mnJRhQHOmuBHhHGR9IyHrkQ T1SaEehRCpZlUpE45eWrBvg 3JhbCBoZWFkIHdpdGggYSBq TGlyAYYbQDdumS1hmlkhD8k aGEE1xmjgJ9AnGZ6juabyoe 2rOLDiGLBfjeOlN3ZxHULfb 9XiZrMuEFQxlhTnfW3akZaj bL0gXendKAk6FQjjUX22jQG rTkWfCCcpNMD6eLXjeLKiYZ YxNWhtYPIppj13ANohl3jaM GDnUqR1l2GjrLInQV8qheGm OKjnSxLfyLG8jACueCObE9x aFTH2yjQqRSU0dWM7MQXnZQ 2xOJTdhd5jOZXBSYInNGDjo dPecNb6OGOvPTW3hW1gddGg qwRmc3UqjGv3lADaWOmwMNN sJWNwIHBkfMyds0naSzKxYR ExjTPaWevaEHZgr62rTKhwq BbudTltQS0mudvossPmoaGM VI4ynBjfWLwcdX4oLQBwpDI hOAVpH1RprGzdklbcJYCbRW lLJHrKY9CHSQhbUTMpE8GhI 0FeshX4v4hokMhau5QeySQs BT6ewWLcpH== MICROSCOPIC t7kzhIBmZWQfcHS8RxKtBVS DESCRIPTION (test code zw0udu0SlyHGjoYMrNGlaqQ = 3371) EnrqJecp91mQD1zI01MV8aW GGsEcS1FXNgdhG6Gdv3ZAIz YJMbgSZmA032a3fsh6vrgeS itGG2oKzjAQDulkfxKgU7TV vhDLJomzpdSKe8MDrpMDPfj TD2EATlaLLpA7CnOFToQP5z wzb6OHY7XHxlJJJnWgT2MLM njKVhAZLrxOgcJVkyy959NJ C2KeJbRJHbvxBouBbrbV0mE xTjDTQJQKTry8WxAROcXWRi cn0= Gross assessment was [facility] performed at ([facility], code = 2777) Department of Pathology, [address] [place] [address], Technical component [facility] was performed at ([facility], code = 2778) Department of Pathology, [address] [place] [address], Professional component [facility] was performed at ([facility], code = 2779) Department of Pathology, [address] [place] [address], [facility] [id number] 16:40:15Surgical Pathology Report Case: [id number] Authorizing Provider: Heaven Garza MD Collected: 04/07/2022 03:36 PM Ordering Location: [facility] Received: 04/07/2022 04:23 PM SERVICES Pathologist: Omari Lora MD Specimen: Femoral Head, Right Hip BONE, RIGHT FEMORAL HEAD, ARTHROPLASTY -ORGANIZING HEMORRHAGE, REACTIVE AND REPARATIVE CHANGES CONSISTENT WITH HISTORY OF FRACTURE - NO MALIGNANCY SEEN Signing Pathologist Direct Phone Line: [phone] signed by Omari Lora MD on 04/14/2022 at 4:40 [id number], [id number] HIP FRACTUREA. Femoral Head, Right Hip.A. Femoral Head,Right Hip.Received fresh labeled with the patient's name, accession number and "right hip femoral head" is a 4.0 x 4.0 x 3.0 cm femoral head with a jagged, hemorrhagic surgical margin. The articular surface is smooth to finely granular. The cut surface is zurita-yellow, diffusely hemorrhagic at the margin, trabeculated and firm. Rebar Bender sections are submitted in A1-A3 following decalcification, with the margin in A1.HANNAH Cox, HT (ASCP)Performed.[facility], Department of Pathology, [address] [place] [address], [facility] of [facility]ology, [address] [place] [address], [facility], Department of [facility]ology, [address] [place] [address], SARS-CoV2/RT-PCR (Asymptomatic ONLY)2022-04-13 17:25:46 Test Item Value Reference Interpretation Comments Range SARS-COV2/RT-PCR Negative Negative The SARS-Co V-2 (test code = target nucleic 07501-0) acids are not detected in thi s [...] revoked sooner. Fact Sheet for Healthcare Providers: https://www.[employer]/Documents/Xp ert%20Xpress%20SAR S%20CoV-2/Fact%20S heets/302-3802%20S ARS-COV-2%20HEALTH CARE%20PROVIDERS%2 0FACT%20SHEET.pdf Fact Sheet for Healthcare Patients: https://www.[employer]/Documents/Xp ert%20Xpress%20SAR S%20CoV-2/Fact%20S heets/302-3801%20S ARS-COV-2%20PATIEN T%20FACT%20SHEET.p df Lab Interpretation Normal (test code = 44335-3) [facility]2022-04-13 17:25:46 Test Item Value Reference Interpretation Comments Range SARS-COV2/RT-PCR Negative Negative The SARS-Co V-2 (test code = target nucleic 18245-2) acids are not detected in thi s [...] revoked sooner. Fact Sheet for Healthcare Providers: https://www.[employer]/Documents/Xp ert%20Xpress%20SAR S%20CoV-2/Fact%20S heets/302-3802%20S ARS-COV-2%20HEALTH CARE%20PROVIDERS%2 0FACT%20SHEET.pdf Fact Sheet for Healthcare Patients: https://www.[employer]/Documents/Xp ert%20Xpress%20SAR S%20CoV-2/Fact%20S heets/302-3801%20S ARS-COV-2%20PATIEN T%20FACT%20SHEET.p df Lab Interpretation Normal (test code = 39162-9) [facility]Asymptomatic ONLY)2022-04-13 17:25:46 Test Item Value Reference Interpretation Comments Range SARS-COV2/RT-PCR Negative Negative The SARS-Co V-2 (test code = target nucleic 44814-3) acids are not detected in thi s [...] revoked sooner. Fact Sheet for Healthcare Providers: https://www.[employer]/Documents/Xp ert%20Xpress%20SAR S%20CoV-2/Fact%20S heets/302-3802%20S ARS-COV-2%20HEALTH CARE%20PROVIDERS%2 0FACT%20SHEET.pdf Fact Sheet for Healthcare Patients: https://www.[employer]/Documents/Xp ert%20Xpress%20SAR S%20CoV-2/Fact%20S heets/302-3801%20S ARS-COV-2%20PATIEN T%20FACT%20SHEET.p df Lab Interpretation Normal (test code = 26667-2) [facility]2022-04-13 17:25:46 Test Item Value Reference Interpretation Comments Range SARS-COV2/RT-PCR Negative Negative The SARS-Co V-2 (test code = target nucleic 09116-9) acids are not detected in thi s [...] revoked sooner. Fact Sheet for Healthcare Providers: https://www.[employer]/Documents/Xp ert%20Xpress%20SAR S%20CoV-2/Fact%20S heets/302-3802%20S ARS-COV-2%20HEALTH CARE%20PROVIDERS%2 0FACT%20SHEET.pdf Fact Sheet for Healthcare Patients: https://www.[employer]/Documents/Xp ert%20Xpress%20SAR S%20CoV-2/Fact%20S heets/302-3801%20S ARS-COV-2%20PATIEN T%20FACT%20SHEET.p df Lab Interpretation Normal (test code = 16086-2) [facility] ONLY)2022-04-13 17:25:46 Test Item Value Reference Interpretation Comments Range SARS-COV2/RT-PCR Negative Negative The SARS-Co V-2 (test code = target nucleic 45769-3) acids are not detected in thi s [...] revoked sooner. Fact Sheet for Healthcare Providers: https://www.[employer]/Documents/Xp ert%20Xpress%20SAR S%20CoV-2/Fact%20S heets/3023802%20S ARS-COV-2%20HEALTH CARE%20PROVIDERS%2 0FACT%20SHEET.pdf Fact Sheet for Healthcare Patients: https://www.[employer]/Documents/Xp ert%20Xpress%20SAR S%20CoV-2/Fact%20S heets/302-3801%20S ARS-COV-2%20PATIEN T%20FACT%20SHEET.p df Lab Interpretation Normal (test code = 34117-2) [facility]As[facility]omatic ONLY)2022-04-13 17:25:46 Test Item Value Reference Interpretation Comments Range SARS-COV2/RT-PCR Negative Negative The SARS-Co V-2 (test code = target nucleic 99629-7) acids are not detected in thi s [...] revoked sooner. Fact Sheet for Healthcare Providers: https://www.[employer]/Documents/Xp ert%20Xpress%20SAR S%20CoV-2/Fact%20S heets/302-3802%20S ARS-COV-2%20HEALTH CARE%20PROVIDERS%2 0FACT%20SHEET.pdf Fact Sheet for Healthcare Patients: https://www.[employer]/Documents/Xp ert%20Xpress%20SAR S%20CoV-2/Fact%20S heets/302-3801%20S ARS-COV-2%20PATIEN T%20FACT%20SHEET.p df Lab Interpretation Normal (test code = 48803-9) [facility])2022-04-13 17:25:46 Test Item Value Reference Range Interpretation Comments SARS-COV2/RT-PCR Negative Negative The SARS-Co V-2 target (test code = nucleic acids a re not 8311139) detected in thi s specimen. Negative result [...] revoked sooner. Fact Sheet for Healthcare Providers: https://www.[employer]/Documents/Xpert%20Xpress%20SARS%20CoV-2/Fact%20Sheets/302-3802%40UAGH-GOR-6%20 HEALTHCARE%20PROVIDERS%20FACT%20SHEET.pdf Fact Sheet for Healthcare Patients: https://www.[employer]/Documents/Xpert%20Xp ress%20SARS%20CoV-2/Fact%20Sheets/302-3801%28ZHHZ-GNW-1%20PATIENT%20FACT%20SHEET .pdfBLOOD [id number] 17:00:19 Test Item Value Reference Range Interpretation Comments CULTURE (BEAKER) (test No growth in 5 days code = 1095) BLOOD [id number] 17:00:19 Test Item Value Reference Range Interpretation Comments CULTURE (BEAKER) (test No growth in 5 days code = 1095) POC-Glucose [id number] 15:34:27 Test Item Value Reference Range Interpretation Comments POC-Glucose Meter (test 129 mg/dL 70-110 H : TE STED AT [facility] code = 1538) [address] [place] [address], 770 30: Accounting Office Manager/Techni aldo ID = [id number] for Desmond, Lina Lab Interpretation (test Abnormal code = 98772-9) [facility] [id number] 15:34:27 Test Item Value Reference Range Interpretation Comments POC-Glucose Meter (test 129 mg/dL 70-110 H : TE STED AT [facility] code = 1538) [address] [place] [address], 770 30: Accounting Office Manager/Techni aldo ID = [id number] for Desmond, Lina Lab Interpretation (test Abnormal code = 88436-3) [facility]ucose [id number] 15:34:27 Test Item Value Reference Range Interpretation Comments POC-Glucose Meter (test 129 mg/dL 70-110 H : TE STED AT [facility] code = 1538) [address] [place] [address], 770 30: Accounting Office Manager/Techni aldo ID = [id number] for Desmond, Lina Lab Interpretation (test Abnormal code = 01409-0) [facility] [id number] 15:34:27 Test Item Value Reference Range Interpretation Comments POC-Glucose Meter (test 129 mg/dL 70-110 H : TE STED AT [facility] code = 1538) [address] [place] [address], 770 30: Accounting Office Manager/Techni aldo ID = [id number] for Desmond, Lina Lab Interpretation (test Abnormal code = 30550-4) [facility] [id number] 15:34:27 Test Item Value Reference Range Interpretation Comments POC-Glucose Meter (test 129 mg/dL 70-110 H : TE STED AT [facility] code = 1538) [address] [facility], 770 30: Accounting Office Manager/Techni aldo ID = [id number] for Cinthia Logann Lab Interpretation (test Abnormal code = 90964-9) [facility]ucose [id number] 15:34:27 Test Item Value Reference Range Interpretation Comments POC-Glucose Meter (test 129 mg/dL 70-110 H : TE STED AT [facility] code = 1538) [address] [facility] 770 30: Accounting Office Manager/Techni aldo ID = [id number] for Desmond, Lina Lab Interpretation (test Abnormal code = 51331-4) [facility]-GLUCOSE [id number] 15:34:27 Test Item Value Reference Range Interpretation Comments POC-GLUCOSE METER 129 mg/dL 70-110 H : TESTED A T [facility] 6720 (BEAKER) (test code = [facility], 1538) 49112: Accounting Office Manager/Techni aldo ID = [id number] for Br hankt, Lina POCT-GLUCOSE [id number] 11:44:07 Test Item Value Reference Range Interpretation Comments POC-GLUCOSE METER 118 mg/dL 70-110 H : TESTED A T [facility] 6720 (BEAKER) (test code = [facility], 153) 20968: Accounting Office Manager/Techni aldo ID = [id number] for Br hankt, Lina POCT-GLUCOSE [id number] 08:00:15 Test Item Value Reference Range Interpretation Comments POC-GLUCOSE METER 114 mg/dL 70-110 H : TESTED A T [facility] 6720 (BEAKER) (test code = [facility], 1538) 96191: Accounting Office Manager/Techni aldo ID = [id number] for Br yant, Lina [id number] 05:48:59 Test Item Value Reference Range Interpretation Comments MAGNESIUM (BEAKER) 2.0 mg/dL 1.6-2.6 Specimen slightly (test code = 627) hemolyzed Accounting Office Manager ID - PIAYA [id number] 05:48:59 Test Item Value Reference Range Interpretation Comments PHOSPHORUS (BEAKER) 3.9 mg/dL 2.3-4.7 Specimen slightly (test code = 604) hemolyzed Accounting Office Manager ID Carlo SIBLEY LBASIC METABOLIC [id number] 05:48:59 Test Item Value Reference Range Interpretation [...] not appl icable for dialysis patien ts Accounting Office Manager ID - PIJOVANNI LCBC (HEMOGRAM ONLY)2022-04-13 04:52:27 Test Item Value [...] 0-0 (BEAKER) (test code = 413) POCT-GLUCOSE [id number] 21:03:16 Test Item Value Reference Range Interpretation Comments POC-GLUCOSE METER 111 mg/dL 70-110 H : TESTED A T [facility] 6720 (BEAKER) (test code = [facility], 153) 45313: Accounting Office Manager/Techni aldo ID = [id number] for Ch avez, Sivan POCT-GLUCOSE [id number] 15:53:40 Test Item Value Reference Range Interpretation Comments POC-GLUCOSE METER 133 mg/dL 70-110 H : TESTED A T [facility] 6720 (BEAKER) (test code [facility], = 1538) 77795: Accounting Office Manager/Techni aldo ID = [id number] for LEWI S -Claudio, LATAND GUERRERO POCT-GLUCOSE [id number] 12:54:17 Test Item Value Reference Range Interpretation Comments POC-GLUCOSE METER 130 mg/dL 70-110 H : TESTED A T [facility] 6720 (BEAKER) (test code [facility], = 1538) 34152: Accounting Office Manager/Techni aldo ID = [id number] for LEWI S -Claudio, LATAND GUERRERO POCT-GLUCOSE [id number] 08:18:20 Test Item Value Reference Range Interpretation Comments POC-GLUCOSE METER 116 mg/dL 70-110 H : TESTED A T [facility] 6720 (BEAKER) (test code [facility], = 1538) 22944: Accounting Office Manager/Techni aldo ID = [id number] for SANDRA Bradshaw BASIC METABOLIC [id number] 04:23:08 Test Item Value Reference Range Interpretation [...] high >=90 G2 Mildly decreased 60-89 G3a Mild ly to moderately 45-5 9 G3b Moderately to [...] not appl icable for dialysis patien ts Accounting Office Manager ID - ELVIN [id number] 04:23:08 Test Item Value Reference Range Interpretation Comments MAGNESIUM (BEAKER) (test code = 2.0 mg/dL 1.6-2.6 627) Accounting Office Manager ID - ELVIN [id number] 04:23:08 Test Item Value Reference Range Interpretation Comments PHOSPHORUS (BEAKER) (test code = 2.6 mg/dL 2.3-4.7 604) Accounting Office Manager ID Carlo OCONNOR WCBC (HEMOGRAM ONLY)2022-04-12 04:05:05 Test Item Value [...] 0-0 (BEAKER) (test code = 413) POCT-GLUCOSE [id number] 20:52:48 Test Item Value Reference Range Interpretation Comments POC-GLUCOSE METER 151 mg/dL 70-110 H : TESTED A T [facility] 6720 (BEAKER) (test code = [facility], 1537) 89522: Accounting Office Manager/Techni aldo ID = [id number] for AYUSH SLIM BECERRA POCT-GLUCOSE [id number] 16:09:14 Test Item Value Reference Range Interpretation Comments POC-GLUCOSE METER 130 mg/dL 70-110 H : TESTED A T [facility] 6720 (BEAKER) (test code = [facility], 153) 43319: Accounting Office Manager/Techni aldo ID = [id number] for Ruslan Powell POCT-GLUCOSE [id number] 11:25:47 Test Item Value Reference Range Interpretation Comments POC-GLUCOSE METER 99 mg/dL 70-110 : TESTED A T [facility] 6720 (BEAKER) (test code = [facility], 153) 68120: Accounting Office Manager/Techni aldo ID = [id number] for Ruslan Magana Urine [id number] 08:48:43 Test Item Value Reference Range Interpretation Comments Result (test code = 6463-4) [facility] [id number] 08:48:43 Test Item Value Reference Range Interpretation Comments Result (test code = 6463-4) No growth [facility] [id number] 08:48:43 Test Item Value Reference Range Interpretation Comments Result (test code = 6463-4) No growth [facility] [id number] 08:48:43 Test Item Value Reference Range Interpretation Comments Result (test code = 6463-4) No growth [facility] [id number] 08:48:43 Test Item Value Reference Range Interpretation Comments Result (test code = 6463-4) No growth [facility] [id number] 08:48:43 Test Item Value Reference Range Interpretation Comments Result (test code = 6463-4) No growth [facility] [id number] 08:48:43 Test Item Value Reference Range Interpretation Comments CULTURE (BEAKER) (test code = 1095) No growth POCT-GLUCOSE [id number] 07:40:08 Test Item Value Reference Range Interpretation Comments POC-GLUCOSE METER 96 mg/dL 70-110 : TESTED A T [facility] 6720 (BEAKER) (test code = [facility] [place], 1538) 47308: Accounting Office Manager/Techni aldo ID = [id number] for Ruslan Magana [id number] 06:30:09 Test Item Value Reference Range Interpretation Comments PHOSPHORUS (BEAKER) (test code = 2.2 mg/dL 2.3-4.7 L 604) Accounting Office Manager ID - MIMI GBASIC METABOLIC [id number] 06:30:08 Test Item Value Reference Range Interpretation [...] not appl icable for dialysis patien ts Accounting Office Manager ID - MIMI [id number] 06:30:08 Test Item Value Reference Range Interpretation Comments MAGNESIUM (BEAKER) (test code = 2.1 mg/dL 1.6-2.6 627) Accounting Office Manager ID - MIMI GCBC (HEMOGRAM ONLY)2022-04-11 05:58:00 [...] 0-0 (BEAKER) (test code = 413) POCT-GLUCOSE [id number] 21:31:00 Test Item Value Reference Range Interpretation Comments POC-GLUCOSE METER 117 mg/dL 70-110 H : TESTED A T [facility] 6720 (BEAKER) (test code = [facility], 1538) 84791: Accounting Office Manager/Techni aldo ID = [id number] for SLIM VICTOR POCT-GLUCOSE [id number] 16:59:44 Test Item Value Reference Range Interpretation Comments POC-GLUCOSE METER 110 mg/dL 70-110 : TESTED A T [facility] 6720 (BEAKER) (test code = [facility], 1538) 36748: Accounting Office Manager/Techni aldo ID = [id number] for RA MOS, DARLINE POCT-GLUCOSE [id number] 11:22:31 Test Item Value Reference Range Interpretation Comments POC-GLUCOSE METER 156 mg/dL 70-110 H : TESTED A T [facility] 6720 (BEAKER) (test code = [facility], 1538) 95908: Accounting Office Manager/Techni aldo ID = [id number] for RA MOS, DARLINE POCT-GLUCOSE [id number] 07:51:14 Test Item Value Reference Range Interpretation Comments POC-GLUCOSE METER 113 mg/dL 70-110 H : TESTED A T [facility] 6720 (BEAKER) (test code = [facility], 1538) 14090: Accounting Office Manager/Techni aldo ID = [id number] for RA MOS, DARLINE [id number] 06:43:13 Test Item Value Reference Range Interpretation Comments MAGNESIUM (BEAKER) 2.0 mg/dL 1.6-2.6 Specimen slightly (test code = 627) hemolyzed Accounting Office Manager ID - HUMBLE [id number] 06:43:13 Test Item Value Reference Range Interpretation Comments PHOSPHORUS (BEAKER) 2.1 mg/dL 2.3-4.7 L Specimen slightly (test code = 604) hemolyzed Accounting Office Manager ID Carlo KATE MBASIC METABOLIC [id number] 06:43:13 Test Item Value Reference Range Interpretation [...] not appl icable for dialysis patien ts Accounting Office Manager ID Carlo KATE MCBC (HEMOGRAM ONLY)2022-04-10 06:18:00 Test Item Value [...] (BEAKER) (test code = 413) Prepare Leuko-Red [id number] 23:54:00 Test Item Value Reference Range Interpretation Comments CROSSMATCH (test code = 2264) COMPATIBLE Unit ABO (test code = O Pos 4474912) UNIT NUMBER (test code = [id number] 934-0) Status (test code = 0933541) [facility] Blood Bank Product (test code RED BLOOD CELLS = 2263) PRODUCT CODE (test code = [id number] 933-2) [facility] Leuko[facility]Red [id number] 23:54:00 Test Item Value Reference Range Interpretation Comments CROSSMATCH (test code = 2264) COMPATIBLE Unit ABO (test code = O Pos 0934320) UNIT NUMBER (test code = [id number] 934-0) Status (test code = 8271755) TX_TIMEINCHART Blood Bank Product (test code RED BLOOD CELLS = 2263) PRODUCT CODE (test code = Z6900G85 933-2) [facility] Leuko-Red [id number] 23:54:00 Test Item Value Reference Range Interpretation Comments CROSSMATCH (test code = 2264) COMPATIBLE Unit ABO (test code = O Pos 8230666) UNIT NUMBER (test code = [id number] 934-0) Status (test code = 8308576) TX_TIMEINCHART Blood Bank Product (test code RED BLOOD CELLS = 2263) PRODUCT CODE (test code = L3944V63 933-2) [facility] Leuko-Red [id number] 23:54:00 Test Item Value Reference Range Interpretation Comments CROSSMATCH (test code = 2264) COMPATIBLE Unit ABO (test code = O Pos 1974232) UNIT NUMBER (test code = [id number] 934-0) Status (test code = 3415544) [facility] Blood Bank Product (test code RED BLOOD CELLS = 2263) PRODUCT CODE (test code = R2919X60 933-2) [facility] Leuko-Red [id number] 23:54:00 Test Item Value Reference Range Interpretation Comments CROSSMATCH (test code = 2264) COMPATIBLE Unit ABO (test code = O Pos 7582644) UNIT NUMBER (test code = [id number] 934-0) Status (test code = 8108091) [facility] Blood Bank Product (test code RED BLOOD CELLS = 2263) PRODUCT CODE (test code = A6749O49 933-2) [facility] Leuko-Red [id number] 23:54:00 Test Item Value Reference Range Interpretation Comments CROSSMATCH (test code = 2264) COMPATIBLE Unit ABO (test code = O Pos 8506169) UNIT NUMBER (test code = [id number] 934-0) Status (test code = 7527060) TX_TIMEINCHART Blood Bank Product (test code RED BLOOD CELLS = 2263) PRODUCT CODE (test code = Q3933R30 933-2) [facility] CenterPO[facility] [id number] 23:08:16 Test Item Value Reference Range Interpretation Comments POC-GLUCOSE METER 119 mg/dL 70-110 H : TESTED A T [facility] 6720 (BEAKER) (test code = [facility] [place], 1538) 75916: Accounting Office Manager/Techni aldo ID = [id number] for Karla mason Comfort POCT-GLUCOSE [id number] 17:18:13 Test Item Value Reference Range Interpretation Comments POC-GLUCOSE METER 172 mg/dL 70-110 H : TESTED A T [facility] 6720 (BEAKER) (test code = [facility], 1538) 45774: Accounting Office Manager/Techni aldo ID = [id number] for WINNIE RAMÍREZ CBC (HEMOGRAM ONLY)2022-04-09 16:39:21 [...] 0-0 (BEAKER) (test code = 413) POCT-GLUCOSE [id number] 11:54:11 Test Item Value Reference Range Interpretation Comments POC-GLUCOSE METER 182 mg/dL 70-110 H : TESTED A T [facility] 6720 (BEAKER) (test code = [facility] [place], 1538) 09332: Accounting Office Manager/Techni aldo ID = [id number] for WINNIE RAMÍREZ POCT-GLUCOSE [id number] 07:49:48 Test Item Value Reference Range Interpretation Comments POC-GLUCOSE METER 139 mg/dL 70-110 H : TESTED A T [facility] 6720 (BEAKER) (test code = [facility], 1538) 62353: Accounting Office Manager/Techni aldo ID = [id number] for DE NNIS, WINNIE Venous doppler legs [id number] 07:38:03Ejection FractionSLEH ECHO HEARTLAB MKCKESSON [facility] CenterVen[facility] do[facility] legs bilateral 2022-04-09 07:38:03Ejection FractionSLEH ECHO HEARTLAB MKCKESSON [facility] do[facility] legs [id number] 07:38:03Ejection FractionSLEH ECHO HEARTLAB MKCKESSON [facility] CenterVen[facility] do[facility] legs [id number] 07:38:03Ejection FractionSLEH ECHO HEARTLAB MKCKESSON [facility] CenterVen[facility] do[facility] legs bilateral 2022-04-09 07:38:03Ejection FractionSLEH ECHO HEARTLAB MKCKESSON [facility] CenterVenous doppler legs [id number] 07:38:03Ejection FractionSLEH ECHO HEARTLAB MKCKESSON [facility] CenterPHOSPHORUS 2022-04-09 06:41:32 Test Item Value Reference Range Interpretation Comments PHOSPHORUS (BEAKER) (test code = 2.5 mg/dL 2.3-4.7 604) Accounting Office Manager ID - ELVIN GARCIAASIC METABOLIC [id number] 06:41:31 Test Item Value Reference Range Interpretation [...] high >=90 G2 Mildly decreased 60-89 G3a Mild ly to moderately 45-5 9 G3b Moderately to [...] not appl icable for dialysis patien ts Accounting Office Manager ID - ELVIN [id number] 06:41:31 Test Item Value Reference Range Interpretation Comments MAGNESIUM (BEAKER) (test code = 4.3 mg/dL 1.6-2.6 H 627) Accounting Office Manager ID - ELVIN WCBC W/PLT COUNT & AUTO [id number] 06:12:33 Test Item Value Reference Range Interpretation [...] PERCENT (BEAKER) (test code = 2801) POCT-GLUCOSE [id number] 00:19:02 Test Item Value Reference Range Interpretation Comments POC-GLUCOSE METER 144 mg/dL 70-110 H : TESTED A T [facility] 6720 (BEAKER) (test code = [place], 1538) 76612: Accounting Office Manager/Techni aldo ID = [id number] for Sp encer, Ashwin RAD, PELVIS, 1 OR 2 [id number] 23:03:00Reason for exam:->postop R hip hemion floor as not done in pacuShould this be performed at the bedside?->Yes [facility] 1950 Sex: FFINAL REPORT RAD, PELVIS, 1 OR 2 VIEWS HISTORY: postop R hip nathaniel COMPARISON: 04/07/2022 pelvic radiograph IMPRESSION: Hyperattenuation of the musculature in the anterior compartment of the proximal right thigh, possibly cement, was not seen on 04/07/2022. No acute fracture or malalignment. Right hip arthroplasty, appears well-seated on these 2 frontal radiographs Signed: Ashely Peralta Verified Date/Time: 04/08/2022 23:03:37 [facility] METABOLIC [id number] 22:31:44 Test Item Value Reference Range Interpretation [...] not appl icable for dialysis patien ts Accounting Office Manager ID - [id number] 22:31:14 Test Item Value Reference Range Interpretation Comments MAGNESIUM (BEAKER) (test code = 1.6 mg/dL 1.6-2.6 627) Accounting Office Manager ID - [id number] 22:31:14 Test Item Value Reference Range Interpretation Comments PHOSPHORUS (BEAKER) (test code = 2.0 mg/dL 2.3-4.7 L 604) Accounting Office Manager ID - BSLACTIC ACID, [id number] 22:23:33 Test Item Value Reference Range Interpretation Comments LACTATE BLOOD VENOUS (2) (BEAKER) 1.96 mmol/L 0.50-2.20 (test code = 2872) Accounting Office Manager ID - BSCBC (HEMOGRAM ONLY)2022-04-08 22:07:28 Test [...] = 413) CBC W/PLT COUNT & AUTO [id number] 18:40:26 Test Item Value Reference Range Interpretation [...] (BEAKER) (test code = 2801) LACTIC ACID, [id number] 16:35:30 Test Item Value Reference Range Interpretation Comments LACTATE BLOOD VENOUS (2) (BEAKER) 3.04 mmol/L 0.50-2.20 H (test code = 2872) Accounting Office Manager ID - BSBASIC METABOLIC [id number] 16:24:06 Test Item Value Reference Range Interpretation [...] not appl icable for dialysis patien ts Accounting Office Manager ID - ADMINRAD, CHEST, 1 VIEW, NON [id number] 16:12:00Reason for exam:->dyspneaShould this be performed at the bedside?->Yes [facility] 1950 Sex: FFINAL REPORT CLINICAL HISTORY: dyspnea TECHNIQUE: 1 view of the chest. COMPARISON: None IMPRESSION: There are no focal infiltrates or effusions. The cardiomediastinal silhouette is magnified by technique. The osseous structures appear intact. Signed: Derrick Ignacio Verified Date/Time: 04/08/2022 16:12:21 Reading Location: [facility] Radiology Reading Room POCT-GLUCOSE METER 2022-04-08 15:31:41 Test Item Value Reference Range Interpretation Comments POC-GLUCOSE METER 208 mg/dL 70-110 H : TESTED A T [facility] 6720 (Microfab[employer]) (test code = [facility], 1538) 12556: Accounting Office Manager/Techni aldo ID = [id number] for Ma ster, Evangelina POCT-GLUCOSE [id number] 11:42:48 Test Item Value Reference Range Interpretation Comments POC-GLUCOSE METER 240 mg/dL 70-110 H : TESTED A T [facility] 6720 (BEAKER) (test code = [facility] [employer] [facility], 1538) 62435: Accounting Office Manager/Techni aldo ID = [id number] for Ma ster, Evangelina CT, EXTREMITY, LOWER WITHOUT CONTRAST, [id number] 08:41:00Unlisted Reason for Exam - Click Yes and Enter Reason Below->Yesevaluate for fractureUnlisted Reason for Exam->evaluate for fracture with cement extravasationPlease specify:->Femur [facility] 1950 Sex: FFINAL REPORT [...] for making that distinction. Signed: Jj Arrington MDReport Verified Date/Time: 04/08/2022 08:41:48 Reading Location: [facility] [id number] Ortho Consult Reading Room -GLUCOSE [id number] 17:39:33 Test Item Value Reference Range Interpretation Comments POC-GLUCOSE METER 102 mg/dL 70-110 : TESTED A T [facility] 6720 (Microfabrica) (test code = [facility], 1538) 24067: Accounting Office Manager/Techni aldo ID = [id number] for Wi lliams, Joana RAD, PELVIS, 1 OR 2 [id number] 16:39:00Reason for exam:->[facility] : 1950 Sex: FFINAL REPORT Pelvis History provided: Right hip arthroplasty Components of right hip arthroplasty are in place. Left hip intact. Signed: Matt Juárezeport Verified Date/Time: 6:39:06 Reading Location: [facility] Diagnostic Imaging Reading Room [place] [address] POCT-GLUCOSE [id number] 10:01:19 Test Item Value Reference Range Interpretation Comments POC-GLUCOSE METER 111 mg/dL 70-110 H : TESTED A T [facility] 6720 (Microfabrica) (test code = [facility], 1538) 11596: Accounting Office Manager/Techni aldo ID = [id number] for IMELDA JC CBC W/PLT COUNT & AUTO [id number] 07:15:22 Test Item Value Reference Range Interpretation Comments WH[facility] BLOOD CE[facility] 10.8 K/ L 3.5-10.5 H (test code [...] = 2801) Urinalysis w/Microscopic + Reflex to [id number] 06:45:42 Test Item Value Reference Range Interpretation Comments Color, UA (test code Yellow = 5778-6) Clarity, UA (test Clear code = 5767-9) Specific Milroy, UA 1.026 1.001-1.035 (test code = 5811-5) pH, UA (test code = 6.5 5.0-8.0 5803-2) Protein, UA (test 20 mg/dL Negative A code = 39074-2) Glucose, UA (test Negative Negative code = 365) Ketones, UA (test Negative Negative code = 2514-8) Bilirubin, UA (test Negative Negative code = 31548-8) Blood, UA (test code Trace Negative A = 87289-9) Nitrite, UA (test Negative Negative code = 5802-4) Leukocytes, UA (test Moderate Negative A code = 5799-2) Urobilinogen, UA 0.2 mg/dL 0.2-1.0 (test code = 21054-3) RBC, UA (test code = 12 See_Comment [Autom ated 22061-8) message] The system which generated this result [...] Bacteria, UA (test None Seen code = 36006-9) Mucus (test code = Occasional 8247-9) Squam Epithel, UA See_Comment [Automate d (test code = 58764-4) messag e] The system which generated this result transmitted reference range : /HPF. The reference range was not used to interpret this result as normal/abnormal . Crystals, Urine (test None Seen code = 32851-9) Specimen Source (test code = 2795) TORRES (test code = TORRES) Accounting Office Manager ID - [auto]Accounting Office Manager ID - tech Lab Interpretation Abnormal (test code = 58141-5) [facility]/Microscopic + Reflex to Culture 2022-04-07 06:45:42 Test Item Value Reference Range Interpretation Comments Color, UA (test code Yellow = 5778-6) Clarity, UA (test Clear code = 5767-9) Specific Mil[place], UA 1.026 1.001-1.035 (test code = 5811-5) pH, UA (test code = 6.5 5.0-8.0 5803-2) Protein, UA (test 20 mg/dL Negative A code = 63573-3) Glucose, UA (test Negative Negative code = 365) Ketones, UA (test Negative Negative code = 2514-8) Bilirubin, UA (test Negative Negative code = 31200-8) Blood, UA (test code Trace Negative A = 56833-1) Nitrite, UA (test Negative Negative code = 5802-4) Leukocytes, UA (test Moderate Negative A code = 5799-2) Urobilinogen, UA 0.2 mg/dL 0.2-1.0 (test code = 06686-5) RBC, UA (test code = 12 See_Comment [Autom ated 74970-4) message] The system which generated this result [...] Bacteria, UA (test None Seen code = 69334-9) Mucus (test code = Occasional 8247-9) Squam Epithel, UA <1 See_Comment [Automate d (test code = 74936-0) messag e] The system which generated this result transmitted reference range : /HPF. The reference range was not used to interpret this result as normal/abnormal . Crystals, Urine (test None Seen code = 94019-2) Specimen Source (test code = 2795) TORRES (test code = TORRES) Accounting Office Manager ID - [auto]Accounting Office Manager ID - tech Lab Interpretation Abnormal (test code = 54111-4) [facility]/Microscopic + Reflex to Culture 2022-04-07 06:45:42 Test Item Value Reference Range Interpretation Comments Color, UA (test code Yellow = 5778-6) Clarity, UA (test Clear code = 5767-9) Specific Milroy, UA 1.026 1.001-1.035 (test code = 5811-5) pH, UA (test code = 6.5 5.0-8.0 5803-2) Protein, UA (test 20 mg/dL Negative A code = 05765-0) Glucose, UA (test Negative Negative code = 365) Ketones, UA (test Negative Negative code = 2514-8) Bilirubin, UA (test Negative Negative code = 14264-2) Blood, UA (test code Trace Negative A = 72738-8) Nitrite, UA (test Negative Negative code = 5802-4) Leukocytes, UA (test Moderate Negative A code = 5799-2) Urobilinogen, UA 0.2 mg/dL 0.2-1.0 (test code = 32150-4) RBC, UA (test code = 12 See_Comment [Autom ated 42872-2) message] The system which generated this result [...] Bacteria, UA (test None Seen code = 60245-8) Mucus (test code = Occasional 8247-9) Squam Epithel, UA <1 See_Comment [Automate d (test code = 46800-8) messag e] The system which generated this result transmitted reference range : /HPF. The reference range was not used to interpret this result as normal/abnormal . Crystals, Urine (test None Seen code = 28597-2) Specimen Source (test code = 2795) TORRES (test code = TORRES) Accounting Office Manager ID - [auto]Accounting Office Manager ID - tech Lab Interpretation Abnormal (test code = 11169-1) [facility]/Microscopic + Reflex to Culture 2022-04-07 06:45:42 Test Item Value Reference Range Interpretation Comments Color, UA (test code Yellow = 5778-6) Clarity, UA (test Clear code = 5767-9) Specific [place], UA 1.026 1.001-1.035 (test code = 5811-5) pH, UA (test code = 6.5 5.0-8.0 5803-2) Protein, UA (test 20 mg/dL Negative A code = 36219-0) Glucose, UA (test Negative Negative code = 365) Ketones, UA (test Negative Negative code = 2514-8) Bilirubin, UA (test Negative Negative code = 38881-3) Blood, UA (test code Trace Negative A = 83501-6) Nitrite, UA (test Negative Negative code = 5802-4) Leukocytes, UA (test Moderate Negative A code = 5799-2) Urobilinogen, UA 0.2 mg/dL 0.2-1.0 (test code = 62536-9) RBC, UA (test code = 12 See_Comment [Autom ated 78043-2) message] The system which generated this result [...] Bacteria, UA (test None Seen code = 07642-9) Mucus (test code = Occasional 8247-9) Squam Epithel, UA <1 See_Comment [Automate d (test code = 97715-6) messag e] The system which generated this result transmitted reference range : /HPF. The reference range was not used to interpret this result as normal/abnormal . Crystals, Urine (test None Seen code = 81933-6) Specimen Source (test code = 2795) TORRES (test code = TORRES) Accounting Office Manager ID - [auto]Accounting Office Manager ID - tech Lab Interpretation Abnormal (test code = 75250-5) [facility] Culture 2022-04-07 06:45:42 Test Item Value Reference Range Interpretation Comments Color, UA (test code Yellow = 5778-6) Clarity, UA (test Clear code = 5767-9) Specific [place], UA 1.026 1.001-1.035 (test code = 5811-5) pH, UA (test code = 6.5 5.0-8.0 5803-2) Protein, UA (test 20 mg/dL Negative A code = 60686-1) Glucose, UA (test Negative Negative code = 365) Ketones, UA (test Negative Negative code = 2514-8) Bilirubin, UA (test Negative Negative code = 46387-7) Blood, UA (test code Trace Negative A = 70442-8) Nitrite, UA (test Negative Negative code = 5802-4) Leukocytes, UA (test Moderate Negative A code = 5799-2) Urobilinogen, UA 0.2 mg/dL 0.2-1.0 (test code = 63659-1) RBC, UA (test code = 12 See_Comment [Autom ated 38105-3) message] The system which generated this result [...] Bacteria, UA (test None Seen code = 92914-9) Mucus (test code = Occasional 8247-9) Squam Epithel, UA See_Comment [Automate d (test code = 41434-5) messag e] The system which generated this result transmitted reference range : /HPF. The reference range was not used to interpret this result as normal/abnormal . Crystals, Urine (test None Seen code = 28184-6) Specimen Source (test code = 2795) TORRES (test code = TORRES) Accounting Office Manager ID - [auto]Accounting Office Manager ID - tech Lab Interpretation Abnormal (test code = 81313-2) [facility] Reflex [facility] Culture 2022-04-07 06:45:42 Test Item Value Reference Range Interpretation Comments Color, UA (test code Yellow = 5778-6) Clarity, UA (test Clear code = 5767-9) Specific [place], UA 1.026 1.001-1.035 (test code = 5811-5) pH, UA (test code = 6.5 5.0-8.0 5803-2) Protein, UA (test 20 mg/dL Negative A code = 32909-8) Glucose, UA (test Negative Negative code = 365) Ketones, UA (test Negative Negative code = 2514-8) Bilirubin, UA (test Negative Negative code = 02727-8) Blood, UA (test code Trace Negative A = 52692-6) Nitrite, UA (test Negative Negative code = 5802-4) Leukocytes, UA (test Moderate Negative A code = 5799-2) Urobilinogen, UA 0.2 mg/dL 0.2-1.0 (test code = 05566-8) RBC, UA (test code = 12 See_Comment [Autom ated 84532-7) message] The system which generated this result [...] Bacteria, UA (test None Seen code = 62330-7) Mucus (test code = Occasional 8247-9) Squam Epithel, UA See_Comment [Automate d (test code = 40475-7) messag e] The system which generated this result transmitted reference range : /HPF. The reference range was not used to interpret this result as normal/abnormal . Crystals, Urine (test None Seen code = 24111-7) Specimen Source (test code = 2795) TORRES (test code = TORRES) Accounting Office Manager ID - [auto]Accounting Office Manager ID - tech Lab Interpretation Abnormal (test code = 00485-4) [facility] URINE [id number] 06:45:42 Test Item Value Reference Range Interpretation [...] = 1521) SOURCE(BEAKER) (test code = 2795) Accounting Office Manager ID - [auto]Accounting Office Manager ID - techBASI METABOLIC [id number] 06:11:49 Test Item Value Reference Range Interpretation [...] S NOT APPLICABLE FOR DIALYSIS PATIEN TS. Accounting Office Manager ID - ELVIN WSARS-COV2/RT-PCR ([facility])2022-04-07 04:44:08 Test Item Value Reference Range Interpretation Comments SARS-COV2/RT-PCR (test Negative Not Detected, Negative, code = 2441474) See external report for linked test SARS-COV-2 PERFORMING LAB [facility] (test code = 3615729) Negative result for this test determines that [...] of the Act.Fact Sheet for Healthcare Prov iders:https://www.[employer]/sites/default/files/product/documents/Fact_Sheet_HC _Vrcahvgxq_Oruu_AACP-DpY-5.pdfFact Sheet for Healthcare Patients:https://www.[employer]/sites/default/files/product/docume nts/Nsao_Iospr_Rvjfdrwd_Agze_METI-LhA-3.pdfPerforming Laboratory:[place] [address], [place] [address]KXXB. METABOLIC PANEL (90135)2021-07-24 17:14:29 Test Item Value Reference Range Interpretation Comments NA (test code = 139 mmol/L 135-145 4036703345) K (test code = 4.3 mmol/L 3.5-5.0 6715092103) CL (test code = 104 mmol/L 98-108 8675450915) CO2 TOTAL (test code = 24 mmol/L 23-31 9719234971) AGAP (test code = 2-16 6174615056) BUN (test code = 18 mg/dL 7-23 3714931855) GLUCOSE (test code = 104 mg/dL 70-110 4275623080) CREATININE (test code = 1.39 mg/dL 0.50-1.04 H 1744500624) TOTAL BILI (test code = 0.4 mg/dL 0.1-1.2 4079852843) CALCIUM (test code = 9.6 mg/dL 8.6-10.6 1574880616) T PROTEIN (test code = 8.4 g/dL 6.3-8.2 H 6159625025) ALBUMIN (test code = 4.6 g/dL 3.5-5.0 3617967503) ALK PHOS (test code = 93 U/L 34-122 7447797381) ALTv (test code = 44 U/L 5-35 H 1742-6) AST(SGOT) (test code = 48 U/L 13-40 H 8218333466) eGFR (test code = mL/min/1.73m2 8268528330) TORRES (test code = TORRES) Association of [...] tests). Lab Interpretation Abnormal (test code = 94545-7) [facility]13[facility]49 Test Item Value Reference Range Interpretation Comments LIPASE (test code = 4660050633) 266 U/L 0-220 H Lab Interpretation (test code = Abnormal 05749-7) [facility] WITH DAAP0106-31-22 17:03:27 Test Item Value Reference Range Interpretation Comments WBC (test code = See_Comment [Automated 3852-2) message] The sy stem which generated this result transmitted reference range : 4.30 - 11.10 10*3/?L. The reference range was not used to interpret this result as normal/abnormal . RBC (test code = See_Comment [Automated 076-8) message] The sy stem which generated this [...] RDW-SD (test code = 48.4 fL 39.0-49.9 94964-3) RDW-CV (test code = 13.8 % 12.0-15.5 788-0) PLT (test code = See_Comment [Automated 847-3) message] The sy stem which generated this result transmitted reference range : 166 - 358 10*3/ ?L. The reference r becca was not used to interpret this result as normal/abnormal . MPV (test code = 9.1 fL 9.5-12.9 L 87604-8) NRBC/100 WBC (test See_Comment [Automat ed code = 4250181377) message] The system which generated this result transmitted reference range : 0.0 - 10.0 /100 WBCs. The refer ence range was not u sed to interpret th is result as normal/abnormal . NRBC x10^3 (test code <0.01 See_Comment [Auto mated = 5238090786) message] The s ystem which generated this result transmitted reference range : 10*3/?L. The reference range was not used to interpret this result as normal/abnormal . GRAN MAT (NEUT) % 64.8 % (test code = 770-8) IMM GRAN % (test code 0.90 % = 7866152847) LYMPH % (test code = 24.2 % 736-9) MONO % (test code = 8.2 % 5905-5) EOS % (test code = 1.4 % 713-8) BASO % (test code = 0.5 % 706-2) GRAN MAT x10^3(ANC) 5.59 10*3/uL 1.88-7.09 (test code = 8629423101) IMM GRAN x10^3 (test 0.08 10*3/uL 0.00-0.06 H code = 1511770598) LYMPH x10^3 (test code 2.09 10*3/uL 1.32-3.29 = 731-0) MONO x10^3 (test code 0.71 10*3/uL 0.33-0.92 = 742-7) EOS x10^3 (test code = 0.12 10*3/uL 0.03-0.39 711-2) BASO x10^3 (test code 0.04 10*3/uL 0.01-0.07 = 704-7) Lab Interpretation Abnormal (test code = 48195-0) [facility] metabolic [id number] 07:08:00 Test Item Value Reference Range Interpretation Comments Sodium (test code = 139 meq/L 646-212 7427-2) Potassium (test 4.1 meq/L 3.5-5.1 code = 2823-3) Chloride (test code 107 meq/L 98-107 = 2075-0) CO2 (test code = 25 meq/L 22-29 2027-9) BUN (test code = 13 mg/dL 7-21 3094-0) Creatinine (test 0.97 mg/dL 0.57-1.25 code = 2160-0) Glucose (test code 80 mg/dL 70-105 = 2345-7) Calcium (test code 8.9 mg/dL 8.4-10.2 = 47249-2) EGFR (test code = 56 mL/min/1.[address] [place] [address]-4) NOT ACCURATE CREATININE CLEARANCE IN PREDICTING GLOMERULAR FILTRATION RATE . ESTIMATED GFR I S NOT APPLICABLE FOR DIALYSIS PATIEN TORRES (test code = Accounting Office Manager ID - TORRES) TOÑITO Camacho [facility] CenterHepatic function [id number] 07:08:00 Test Item Value Reference Range Interpretation Comments Protein, Total (test 6.9 See_Comment [Autom ated code = 2885-2) message] The system which generated this result transmit lane reference range : 6.0 - 8.3 gm/dL . The reference range was not u sed to interpret th is result as normal/abnormal . Albumin (test code = 3.6 g/dL 3.5-5 15401-7) Total Bilirubin (test 0.3 mg/dL 0.2-1.2 code = 1974-2) Bilirubin, Direct 0.2 mg/dL 0.1-0.5 (test code = 1967-7) Alkaline Phosphatase 56 U/L 40-150 (test code = 6768-6) AST (test code = 37 U/L 5-34 H 192-8) ALT (test code = 50 U/L 6-55 1742-6) TORRES (test code = TORRES) Accounting Office Manager ID - TOÑITO Camacho Lab Interpretation Abnormal (test code = 62638-1) [facility] [id number] 07:08:00 Test Item Value Reference Range Interpretation Comments Sodium (test code = 139 meq/L 496-632 7423-2) Potassium (test 4.1 meq/L 3.5-5.1 code = 2823-3) Chloride (test code 107 meq/L 98-107 = 2075-0) CO2 (test code = 25 meq/L -2028-05) BUN (test code = 13 mg/dL 7-21 3094-0) Creatinine (test 0.97 mg/dL 0.57-1.25 code = 2160-0) Glucose (test code 80 mg/dL 70-105 = 2345-7) Calcium (test code 8.9 mg/dL 8.4-10.2 = 31511-4) EGFR (test code = 56 mL/min/1.[address] [place] [address]-2) NOT ACCURATE CREATININE CLEARANCE IN PREDICTING GLOMERULAR FILTRATION RATE . ESTIMATED GFR I S NOT APPLICABLE FOR DIALYSIS PATIEN TORRES (test code = Accounting Office Manager ID - TORRES) TOÑITO Camacho [facility] CenterHep[facility] function [id number] 07:08:00 Test Item Value Reference Range Interpretation Comments Protein, Total (test 6.9 See_Comment [Autom ated code = 2885-2) message] The system which generated this result transmit lane reference range : 6.0 - 8.3 gm/dL . The reference range was not u sed to interpret th is result as normal/abnormal . Albumin (test code = 3.6 g/dL 3.5-5 31959-9) Total Bilirubin (test 0.3 mg/dL 0.2-1.2 code = 1974-2) Bilirubin, Direct 0.2 mg/dL 0.1-0.5 (test code = 1967-7) Alkaline Phosphatase 56 U/L 40-150 (test code = 6768-6) AST (test code = 37 U/L 5-34 H 1920-8) ALT (test code = 50 U/L 6-55 1742-6) TORRES (test code = TORRES) Accounting Office Manager ID - RADHAJOVANNI Doug Lab Interpretation Abnormal (test code = 12841-3) [facility] [id number] 07:08:00 Test Item Value Reference Range Interpretation Comments Sodium (test code = 139 meq/L 275-063 8363-2) Potassium (test 4.1 meq/L 3.5-5.1 code = 2823-3) Chloride (test code 107 meq/L 98-107 = 2075-0) CO2 (test code = 25 meq/L 2028-05) BUN (test code = 13 mg/dL 04-01 3094-0) Creatinine (test 0.97 mg/dL 0.57-1.25 code = 2160-0) Glucose (test code 80 mg/dL 70-105 = 2345-7) Calcium (test code 8.9 mg/dL 8.4-10.2 = 69204-4) EGFR (test code = 56 mL/min/1.[address] [place] [address]-5) NOT ACCURATE CREATININE CLEARANCE IN PREDICTING GLOMERULAR FILTRATION RATE . ESTIMATED GFR I S NOT APPLICABLE FOR DIALYSIS PATIEN TORRES (test code = Accounting Office Manager ID - TORRES) TOÑITO Camacho [facility] CenterHep[facility] function [id number] 07:08:00 Test Item Value Reference Range Interpretation Comments Protein, Total (test 6.9 See_Comment [Autom ated code = 2885-2) message] The system which generated this result transmit lane reference range : 6.0 - 8.3 gm/dL . The reference range was not u sed to interpret th is result as normal/abnormal . Albumin (test code = 3.6 g/dL 3.5-5 80708-3) Total Bilirubin (test 0.3 mg/dL 0.2-1.2 code = 1974-2) Bilirubin, Direct 0.2 mg/dL 0.1-0.5 (test code = 1967-7) Alkaline Phosphatase 56 U/L 40-150 (test code = 6768-6) AST (test code = 37 U/L 5-34 H 1920-8) ALT (test code = 50 U/L 6-55 1742-6) TORRES (test code = TORRES) Accounting Office Manager ID - TOÑITO Camacho Lab Interpretation Abnormal (test code = 52230-5) [facility] [id number] 07:08:00 Test Item Value Reference Range Interpretation Comments Sodium (test code = 139 meq/L 388-952 6545-2) Potassium (test 4.1 meq/L 3.5-5.1 code = 2823-3) Chloride (test code 107 meq/L 98-107 = 2075-0) CO2 (test code = 25 meq/L 2028-05) BUN (test code = 13 mg/dL 7-21 3094-0) Creatinine (test 0.97 mg/dL 0.57-1.25 code = 2160-0) Glucose (test code 80 mg/dL 70-105 = 2345-7) Calcium (test code 8.9 mg/dL 8.4-10.2 = 45525-5) EGFR (test code = 56 mL/min/1.[address] [place] [address]-0) NOT ACCURATE CREATININE CLEARANCE IN PREDICTING GLOMERULAR FILTRATION RATE . ESTIMATED GFR I S NOT APPLICABLE FOR DIALYSIS PATIEN TORRES (test code = Accounting Office Manager ID - TORRES) TOÑITO Camacho [facility] CenterHep[facility] function [id number] 07:08:00 Test Item Value Reference Range Interpretation Comments Protein, Total (test 6.9 See_Comment [Autom ated code = 2885-2) message] The system which generated this result transmit lane reference range : 6.0 - 8.3 gm/dL . The reference range was not u sed to interpret th is result as normal/abnormal . Albumin (test code = 3.6 g/dL 3.5-5 14987-3) Total Bilirubin (test 0.3 mg/dL 0.2-1.2 code = 1975-2) Bilirubin, Direct 0.2 mg/dL 0.1-0.5 (test code = 1968-7) Alkaline Phosphatase 56 U/L 40-150 (test code = 6768-6) AST (test code = 37 U/L 5-34 H 1920-8) ALT (test code = 50 U/L 6-55 1742-6) TORRES (test code = TORRES) Accounting Office Manager ID - TOÑITO Camacho Lab Interpretation Abnormal (test code = 46825-3) [facility] CenterBASIC METABOLIC [id number] 07:08:00 Test Item Value Reference Range Interpretation [...] S NOT APPLICABLE FOR DIALYSIS PATIEN TS. Accounting Office Manager ID - PIJOVANNI LHEPATIC FUNCTION [id number] 07:08:00 Test Item Value Reference Range Interpretation [...] (test code = 50 U/L 6-55 347) Accounting Office Manager ID - TOÑITO LCBC with platelet count + automated [id number] 06:01:00 Test Item Value Reference Range Interpretation Comments WBC (test code = 6690-2) 7.9 See_Comment [A utomated message] The system [employer] generated this result transmitted ref erence range: 3.5 - 10 .5 K/L. The refe rence range was not u sed to interpret this result as normal/abnor mal. RBC (test code = 789-8) 3.22 See_Comment L [Au tomated message] The system [employer] generated this result transmitted ref erence range: 3.93 - 5 .22 M/L. The refe rence range was not u sed to interpret this result as normal/abnor mal. MCHC (test code = 786-4) 31.8 See_Comment L [A utomated message] The system [employer] generated this result transmitted ref erence range: [...] See_Comment [Aut omated message] 777-3) The system [employer] generated this result transmitted ref erence range: 150 - 45 0 K/CU MM. The referen ce range was not u sed to interpret this result as normal/abnor mal. MPV (test code = 8.9 fL 9.4-12.3 L 73480-4) nRBC (test code = 413) 0 See_Comment [Aut omated message] The system [employer] generated this result transmitted ref erence range: [...] See_Comment [Aut omated message] 670) The system [employer] generated this result transmitted ref erence range: 1.56 - 6 .13 K/L. The refe rence range was not u sed to interpret this result as normal/abnor mal. # Lymphs (test code = 2.20 See_Comment [Auto mated message] 414) The system [employer] generated this result transmitted ref erence range: 1.18 - 3 .74 K/L. The refe rence range was not u sed to interpret this result as normal/abnor mal. # Monos (test code = 0.54 See_Comment H [Autom ated message] 415) The system [employer] generated this result transmitted ref erence range: 0.24 - 0 .36 K/L. The refe rence range was not u sed to interpret this result as normal/abnor mal. # Eos (test code = 416) 0.08 See_Comment [Au tomated message] The system [employer] generated this result transmitted ref erence range: 0.04 - 0 .36 K/L. The refe rence range was not u sed to interpret this result as normal/abnor mal. # Baso (test code = 417) 0.03 See_Comment [A utomated message] The system [employer] generated this result transmitted ref erence range: 0.01 - 0 .08 K/L. The refe rence range was not u sed to interpret this result as normal/abnor mal. Immature 0 % 0-1 Granulocytes-Relative (test code = 2801) Lab Interpretation (test Abnormal code = 49870-4) [facility] with platelet count + automated [id number] 06:01:00 Test Item Value Reference Range Interpretation Comments WBC (test code = 6690-2) 7.9 See_Comment [A utomated message] The system [employer] generated this result transmitted ref erence range: 3.5 - 10 .5 K/L. The refe rence range was not u sed to interpret this result as normal/abnor mal. RBC (test code = 789-8) 3.22 See_Comment L [Au tomated message] The system [employer] generated this result transmitted ref erence range: 3.93 - 5 .22 M/L. The refe rence range was not u sed to interpret this result as normal/abnor mal. MCHC (test code = 786-4) 31.8 See_Comment L [A utomated message] The system [employer] generated this result transmitted ref erence range: [...] See_Comment [Aut omated message] 777-3) The system [employer] generated this result transmitted ref erence range: 150 - 45 0 K/CU MM. The referen ce range was not u sed to interpret this result as normal/abnor mal. MPV (test code = 8.9 fL 9.4-12.3 L 57029-0) nRBC (test code = 413) 0 See_Comment [Aut omated message] The system [employer] generated this result transmitted ref erence range: [...] See_Comment [Aut omated message] 670) The system [employer] generated this result transmitted ref erence range: 1.56 - 6 .13 K/L. The refe rence range was not u sed to interpret this result as normal/abnor mal. # Lymphs (test code = 2.20 See_Comment [Auto mated message] 414) The system [employer] generated this result transmitted ref erence range: 1.18 - 3 .74 K/L. The refe rence range was not u sed to interpret this result as normal/abnor mal. # Monos (test code = 0.54 See_Comment H [Autom ated message] 415) The system [employer] generated this result transmitted ref erence range: 0.24 - 0 .36 K/L. The refe rence range was not u sed to interpret this result as normal/abnor mal. # Eos (test code = 416) 0.08 See_Comment [Au tomated message] The system [employer] generated this result transmitted ref erence range: 0.04 - 0 .36 K/L. The refe rence range was not u sed to interpret this result as normal/abnor mal. # Baso (test code = 417) 0.03 See_Comment [A utomated message] The system [employer] generated this result transmitted ref erence range: 0.01 - 0 .08 K/L. The refe rence range was not u sed to interpret this result as normal/abnor mal. Immature 0 % 0-1 Granulocytes-Relative (test code = 2801) Lab Interpretation (test Abnormal code = 59919-8) [facility] with platelet count + automated [id number] 06:01:00 Test Item Value Reference Range Interpretation Comments WBC (test code = 6690-2) 7.9 See_Comment [A utomated message] The system [employer] generated this result transmitted ref erence range: 3.5 - 10 .5 K/L. The refe rence range was not u sed to interpret this result as normal/abnor mal. RBC (test code = 789-8) 3.22 See_Comment L [Au tomated message] The system [employer] generated this result transmitted ref erence range: 3.93 - 5 .22 M/L. The refe rence range was not u sed to interpret this result as normal/abnor mal. MCHC (test code = 786-4) 31.8 See_Comment L [A utomated message] The system [employer] generated this result transmitted ref erence range: [...] See_Comment [Aut omated message] 777-3) The system [employer] generated this result transmitted ref erence range: 150 - 45 0 K/CU MM. The referen ce range was not u sed to interpret this result as normal/abnor mal. MPV (test code = 8.9 fL 9.4-12.3 L 11407-1) nRBC (test code = 413) 0 See_Comment [Aut omated message] The system [employer] generated this result transmitted ref erence range: [...] See_Comment [Aut omated message] 670) The system [employer] generated this result transmitted ref erence range: 1.56 - 6 .13 K/L. The refe rence range was not u sed to interpret this result as normal/abnor mal. # Lymphs (test code = 2.20 See_Comment [Auto mated message] 414) The system [employer] generated this result transmitted ref erence range: 1.18 - 3 .74 K/L. The refe rence range was not u sed to interpret this result as normal/abnor mal. # Monos (test code = 0.54 See_Comment H [Autom ated message] 415) The system [employer] generated this result transmitted ref erence range: 0.24 - 0 .36 K/L. The refe rence range was not u sed to interpret this result as normal/abnor mal. # Eos (test code = 416) 0.08 See_Comment [Au tomated message] The system [employer] generated this result transmitted ref erence range: 0.04 - 0 .36 K/L. The refe rence range was not u sed to interpret this result as normal/abnor mal. # Baso (test code = 417) 0.03 See_Comment [A utomated message] The system [employer] generated this result transmitted ref erence range: 0.01 - 0 .08 K/L. The refe rence range was not u sed to interpret this result as normal/abnor mal. Immature 0 % 0-1 Granulocytes-Relative (test code = 2801) Lab Interpretation (test Abnormal code = 64166-5) [facility] with platelet count + automated [id number] 06:01:00 Test Item Value Reference Range Interpretation Comments WBC (test code = 6690-2) 7.9 See_Comment [A utomated message] The system [employer] generated this result transmitted ref erence range: 3.5 - 10 .5 K/L. The refe rence range was not u sed to interpret this result as normal/abnor mal. RBC (test code = 789-8) 3.22 See_Comment L [Au tomated message] The system [employer] generated this result transmitted ref erence range: 3.93 - 5 .22 M/L. The refe rence range was not u sed to interpret this result as normal/abnor mal. MCHC (test code = 786-4) 31.8 See_Comment L [A utomated message] The system [employer] generated this result transmitted ref erence range: [...] See_Comment [Aut omated message] 777-3) The system [employer] generated this result transmitted ref erence range: 150 - 45 0 K/CU MM. The referen ce range was not u sed to interpret this result as normal/abnor mal. MPV (test code = 8.9 fL 9.4-12.3 L 86067-3) nRBC (test code = 413) 0 See_Comment [Aut omated message] The system [employer] generated this result transmitted ref erence range: [...] See_Comment [Aut omated message] 670) The system [employer] generated this result transmitted ref erence range: 1.56 - 6 .13 K/L. The refe rence range was not u sed to interpret this result as normal/abnor mal. # Lymphs (test code = 2.20 See_Comment [Auto mated message] 414) The system [employer] generated this result transmitted ref erence range: 1.18 - 3 .74 K/L. The refe rence range was not u sed to interpret this result as normal/abnor mal. # Monos (test code = 0.54 See_Comment H [Autom ated message] 415) The system [employer] generated this result transmitted ref erence range: 0.24 - 0 .36 K/L. The refe rence range was not u sed to interpret this result as normal/abnor mal. # Eos (test code = 416) 0.08 See_Comment [Au tomated message] The system [employer] generated this result transmitted ref erence range: 0.04 - 0 .36 K/L. The refe rence range was not u sed to interpret this result as normal/abnor mal. # Baso (test code = 417) 0.03 See_Comment [A utomated message] The system [employer] generated this result transmitted ref erence range: 0.01 - 0 .08 K/L. The refe rence range was not u sed to interpret this result as normal/abnor mal. Immature 0 % 0-1 Granulocytes-Relative (test code = 2801) Lab Interpretation (test Abnormal code = 74315-2) [facility] W/PLT COUNT & AUTO [id number] 06:01:00 Test Item Value Reference Range Interpretation [...] (BEAKER) (test code = 2801) ECG 12 [id number] 06:47:19Interface, External Ris In - 05/05/2021 6:47 AM CDTVentricular Rate 91 BPMAtrial Rate 91 BPMP-R Interval 126 msQRS Duration 78 msQ-T Interval 352 msQTC Calculation(Bazett) 432 msP [place] 44 degreesR Axis28 degreesT [place] 39 degreesNormal sinus rhythmNormal ECGNo previous ECGs availableConfirmed by MD BELLAMY JOSEPH P ([id number]) on 05/05/2021 6:47:15 [facility] [id number] 06:47:19Interface, External Ris In - 05/05/2021 6:47 AM CDTVentricular Rate 91 BPMAtrial Rate 91 BPMP-R Interval 126 msQRS Duration 78 msQ-T Interval 352 msQTC Calculation(Bazett) 432 msP [place] 44 degreesR Axis28 degreesT [place] 39 degreesNormal sinus rhythmNormal ECGNo previous ECGs availableConfirmed by MD BELLAMY JOSEPH P ([id number]) on 05/05/2021 6:47:15 [facility] [id number] 06:47:19Interface, External Ris In 05/05/2021 6:47 AM CDTVentricular Rate 91 BPMAtrial Rate 91 BPMP-R Interval 126 msQRS Duration 78 msQ-T Interval 352 msQTC Calculation(Bazett) 432 msP [place] 44 degreesR Axis28 degreesT [place] 39 degreesNormal sinus rhythmNormal ECGNo previous ECGs availableConfirmed by MD BELLAMY JOSEPH P ([id number]) on 05/05/2021 6:47:15 [facility] ECG 12 [id number] 06:47:19Interface, External Ris In - 05/05/2021 6:47 AM CDTVentricular Rate 91 BPMAtrial Rate 91 BPMP-R Interval 126 msQRS Duration 78 msQ-T Interval 352 msQTC Calculation(Bazett) 432 msP [place] 44 degreesR Axis28 degreesT [place] 39 degreesNormal sinus rhythmNormal ECGNo previous ECGs availableConfirmed by MD BELLAMY JOSEPH P ([id number]) on 05/05/2021 6:47:15 [facility], [id number] 06:17:00 Test Item Value Reference Range Interpretation Comments ABO Grouping (test code = 2588) O Rh Factor (test code = 2589) POS [facility], [id number] 06:17:00 Test Item Value Reference Range Interpretation Comments ABO Grouping (test code = 2588) O Rh Factor (test code = 2589) POS [facility], [id number] 06:17:00 Test Item Value Reference Range Interpretation Comments ABO Grouping (test code = 2588) O Rh Factor (test code = 2589) POS [facility], [id number] 06:17:00 Test Item Value Reference Range Interpretation Comments ABO Grouping (test code = 2588) O Rh Factor (test code = 2589) POS [facility]Type [facility] screen, automated ([facility] and [facility] only) 2021-05-05 05:01:00 Test Item Value Reference Range Interpretation Comments ABO/RH AUTOMATED (BEAKER) (test O POSITIVE code = 2260) Ab Scrn (test code = 890-4) NEGATIVE [facility]Type [facility], automated ([facility] and [facility] only) 2021-05-05 05:01:00 Test Item Value Reference Range Interpretation Comments ABO/RH AUTOMATED (BEAKER) (test O POSITIVE code = 2260) Ab Scrn (test code = 890-4) NEGATIVE [facility]Type [facility], automated ([facility] and [facility] only) 2021-05-05 05:01:00 Test Item Value Reference Range Interpretation Comments ABO/RH AUTOMATED (BEAKER) (test O POSITIVE code = 2260) Ab Scrn (test code = 890-4) NEGATIVE [facility] CenterType [facility], automated ([facility] and [facility] only) 2021-05-05 05:01:00 Test Item Value Reference Range Interpretation Comments ABO/RH AUTOMATED (BEAKER) (test O POSITIVE code = 2260) Ab Scrn (test code = 890-4) NEGATIVE [facility] CenterPT/[id number] 04:35:00 Test Item Value Reference Interpretation Comments [...] valves. Lab Interpretation Normal (test code = 38920-7) [facility] CenterPT/[id number] 04:35:00 Test Item Value Reference Interpretation Comments [...] valves. Lab Interpretation Normal (test code = 74626-4) [facility] CenterPT/[id number] 04:35:00 Test Item Value Reference Interpretation Comments [...] valves. Lab Interpretation Normal (test code = 07853-2) [facility] CenterPT/[id number] 04:35:00 Test Item Value Reference Interpretation Comments [...] valves. Lab Interpretation Normal (test code = 73888-5) [facility] CenterPROTHROMBIN TIME/[id number] 04:35:00 Test Item Value Reference Range Interpretation Comments PROTIME (BEAKER) 13.7 seconds 11.9-14.2 (test code = 759) INR (BEAKER) (test 1.07 See_Comment [Automat ed message] code = 370) The system [employer] generated this result transmitted ref erence range: <=5.90. The reference range was not used to int erpret this result as normal/abnormal . RECOMMENDED COUMADIN/WARFARIN INR THERAPY RANGESSTANDARD DOSE: 2.0 - 3.0 Includes: PROPHYLAXIS for venous thrombosis, systemic embolization; TREATMENT for venous thrombosis and/or pulmonary embolus.HIGH RISK: Target INR is 2.5-3.5 for patients with mechanical heart valves.High Sensitivity Troponin [id number] 01:56:00 Test Item Value Reference Range Interpretation Comments Troponin I HS (test <4 See_Comment [Automa lane code = 31788-1) message] The system which generated this result transmitted reference range : <=17 pg/ml. The reference range was not used to interpret this result as normal/abnormal . TORRES (test code = Accounting Office Manager ID - TORRES) DBThe BULLDOZER ENGINEER STAT High Sensitivity Troponin-I results should be used in conjunction with other diagnostic information such as ECG, clinical observations and information, and patient symptoms to aid in the diagnosis of DC. Lab Interpretation Normal (test code = 15311-4) [facility] CenterHigh Sensitivity Troponin [id number] 01:56:00 Test Item Value Reference Range Interpretation Comments Troponin I HS (test <4 See_Comment [Automa lane code = 03263-5) message] The system which generated this result transmitted reference range : <=17 pg/ml. The reference range was not used to interpret this result as normal/abnormal . TORRES (test code = Accounting Office Manager ID - TORRES) DBThe BULLDOZER ENGINEER STAT High Sensitivity Troponin-I results should be used in conjunction with other diagnostic information such as ECG, clinical observations and information, and patient symptoms to aid in the diagnosis of DC. Lab Interpretation Normal (test code = 78033-3) [facility] CenterHigh Sensitivity Troponin [id number] 01:56:00 Test Item Value Reference Range Interpretation Comments Troponin I HS (test <4 See_Comment [Automa lane code = 99267-5) message] The system which generated this result transmitted reference range : <=17 pg/ml. The reference range was not used to interpret this result as normal/abnormal . TORRES (test code = Accounting Office Manager ID - TORRES) DBThe BULLDOZER ENGINEER STAT High Sensitivity Troponin-I results should be used in conjunction with other diagnostic information such as ECG, clinical observations and information, and patient symptoms to aid in the diagnosis of DC. Lab Interpretation Normal (test code = 91810-0) [facility] CenterHigh Sensitivity Troponin [id number] 01:56:00 Test Item Value Reference Range Interpretation Comments Troponin I HS (test <4 See_Comment [Automa lane code = 81223-6) message] The system which generated this result transmitted reference range : <=17 pg/ml. The reference range was not used to interpret this result as normal/abnormal . TORRES (test code = Accounting Office Manager ID - TORRES) DBThe BULLDOZER ENGINEER STAT High Sensitivity Troponin-I results should be used in conjunction with other diagnostic information such as ECG, clinical observations and information, and patient symptoms to aid in the diagnosis of DC. Lab Interpretation Normal (test code = 38588-7) [facility] CenterHIGH SENSITIVITY TROPONIN [id number] 01:56:00 Test Item Value Reference Range Interpretation Comments HIGH SENSITIVITY < pg/ml See_Comment [Automated message] TROPONIN I (test code = The system which [id number]) generated this result transmitted ref erence range: <=17. Th e reference range was not used to interpr et this result as normal/abnormal . Accounting Office Manager ID - DBThe BULLDOZER ENGINEER STAT High Sensitivity Troponin-I results should be used in conjunctionwith other diagnostic information such as ECG, clinical observations and information, and patient symptoms to aid in the diagnosis of DC.Ketones, [id number] 01:40:00 Test Item Value Reference Range Interpretation Comments Ketones, Blood (test code = 1103) 0.4 mmol/L <0.4 H Lab Interpretation (test code = Abnormal 63843-3) [facility] CenterKetana, [id number] 01:40:00 Test Item Value Reference Range Interpretation Comments Ketones, Blood (test code = 1103) 0.4 mmol/L <0.4 H Lab Interpretation (test code = Abnormal 24128-3) [facility] CenterKetana, [id number] 01:40:00 Test Item Value Reference Range Interpretation Comments Ketones, Blood (test code = 1103) 0.4 mmol/L <0.4 H Lab Interpretation (test code = Abnormal 54233-7) [facility] CenterKetana, [id number] 01:40:00 Test Item Value Reference Range Interpretation Comments Ketones, Blood (test code = 1103) 0.4 mmol/L <0.4 H Lab Interpretation (test code = Abnormal 12483-8) [facility], [id number] 01:40:00 Test Item Value Reference Range Interpretation Comments KETONES, BLOOD (BEAKER) (test code 0.4 mmol/L <0.4 H = 1103) SARS-CoV2/RT-PCR (Asymptomatic ONLY)2021-05-05 01:30:00 Test Item Value Reference Interpretation Comments Range SARS-COV2/RT-PCR Negative Negative The SARS-Co V-2 (test code = target nucleic 13006-2) acids are not detected in thi s [...] revoked sooner. Fact Sheet for Healthcare Providers: https://www.[employer]/Documents/Xp ert%20Xpress%20SAR S%20CoV-2/Fact%20S heets/302-3802%20S ARS-COV-2%20HEALTH CARE%20PROVIDERS%2 0FACT%20SHEET.pdf Fact Sheet for Healthcare Patients: https://www.[employer]/Documents/Xp ert%20Xpress%20SAR S%20CoV-2/Fact%20S heets/302-3801%20S ARS-COV-2%20PATIEN T%20FACT%20SHEET.p df Lab Interpretation Normal (test code = 81769-5) [facility] (Asymptomatic ONLY)2021-05-05 01:30:00 Test Item Value Reference Interpretation Comments Range SARS-COV2/RT-PCR Negative Negative The SARS-Co V-2 (test code = target nucleic 36317-5) acids are not detected in thi s [...] revoked sooner. Fact Sheet for Healthcare Providers: https://www.[employer]/Documents/Xp ert%20Xpress%20SAR S%20CoV-2/Fact%20S heets/302-3802%20S ARS-COV-2%20HEALTH CARE%20PROVIDERS%2 0FACT%20SHEET.pdf Fact Sheet for Healthcare Patients: https://www.[employer]/Documents/Xp ert%20Xpress%20SAR S%20CoV-2/Fact%20S heets/302-3801%20S ARS-COV-2%20PATIEN T%20FACT%20SHEET.p df Lab Interpretation Normal (test code = 28252-7) [facility] (Asymptomatic ONLY)2021-05-05 01:30:00 Test Item Value Reference Interpretation Comments Range SARS-COV2/RT-PCR Negative Negative The SARS-Co V-2 (test code = target nucleic 24398-0) acids are not detected in thi s [...] revoked sooner. Fact Sheet for Healthcare Providers: https://www.[employer]/Documents/Xp ert%20Xpress%20SAR S%20CoV-2/Fact%20S heets/302-3802%20S ARS-COV-2%20HEALTH CARE%20PROVIDERS%2 0FACT%20SHEET.pdf Fact Sheet for Healthcare Patients: https://www.[employer]/Documents/Xp ert%20Xpress%20SAR S%20CoV-2/Fact%20S heets/302-3801%20S ARS-COV-2%20PATIEN T%20FACT%20SHEET.p df Lab Interpretation Normal (test code = 67597-5) [facility] (Asymptomatic ONLY)2021-05-05 01:30:00 Test Item Value Reference Interpretation Comments Range SARS-COV2/RT-PCR Negative Negative The SARS-Co V-2 (test code = target nucleic 51124-1) acids are not detected in thi s [...] revoked sooner. Fact Sheet for Healthcare Providers: https://www.[employer]/Documents/Xp ert%20Xpress%20SAR S%20CoV-2/Fact%20S heets/302-3802%20S ARS-COV-2%20HEALTH CARE%20PROVIDERS%2 0FACT%20SHEET.pdf Fact Sheet for Healthcare Patients: https://www.[employer]/Documents/Xp ert%20Xpress%20SAR S%20CoV-2/Fact%20S heets/302-3801%20S ARS-COV-2%20PATIEN T%20FACT%20SHEET.p df Lab Interpretation Normal (test code = 21735-4) [facility])2021-05-05 01:30:00 Test Item Value Reference Range Interpretation Comments SARS-COV2/RT-PCR Negative Negative The SARS-Co V-2 target (test code = nucleic acids a re not 3917844) detected in thi s specimen. Negative result [...] revoked sooner. Fact Sheet for Healthcare Providers: https://www.[employer]/Documents/Xpert%20Xpress%20SARS%20CoV-2/Fact%20Sheets/3023802%55PXVR-EHZ-0%20 HEALTHCARE%20PROVIDERS%20FACT%20SHEET.pdf Fact Sheet for Healthcare Patients: https://www.[employer]/Documents/Xpert%20Xp ress%20SARS%20CoV-2/Fact%20Sheets/3023801%00MELN-SPV-9%20PATIENT%20FACT%20SHEET .pdfBlood gas, [id number] 01:22:00 Test Item Value Reference Range Interpretation [...] code = 59 See_Comment H [Auto mated 3075-2) message] The sy stem which generated this result transmitted reference range : 25 - 40 mm Hg. The reference range was not used to interpret this result as normal/abnormal . O2 Sat, Niranjan (test code 89.4 % 40-70 H = 2711-0) HCO3, Niranjan (test code = 21 mmol/L 21-29 43904-1) Base Excess, Niranjan (test -4.5 mmol/L -2-3 L code = 1927-3) Patient Temperature 37.0 (test code = 8310-5) FIO2 (test code = 1819) 21 Lab Interpretation Abnormal (test code = 59426-2) [facility] gas, [id number] 01:22:00 Test Item Value Reference Range Interpretation [...] Niranjan (test code = 21 mmol/L 21-29 97988-3) Base Excess, Niranjan (test -4.5 mmol/L -2-3 L code = 1927-3) Patient Temperature 37.0 (test code = 8310-5) FIO2 (test code = 1819) 21 Lab Interpretation Abnormal (test code = 00832-5) [facility] gas, [id number] 01:22:00 Test Item Value Reference Range Interpretation [...] Niranjan (test code = 21 mmol/L 21-29 52009-0) Base Excess, Niranjan (test -4.5 mmol/L -2-3 L code = 1927-3) Patient Temperature 37.0 (test code = 8310-5) FIO2 (test code = 1819) 21 Lab Interpretation Abnormal (test code = 53064-4) [facility] Center[facility], [id number] 01:22:00 Test Item Value Reference Range Interpretation [...] code = 59 See_Comment H [Auto mated 0495-2) message] The sy stem which generated this result transmitted reference range : 25 - 40 mm Hg. The reference range was not used to interpret this result as normal/abnormal . O2 Sat, Niranjan (test code 89.4 % 40-70 H = 2711-0) HCO3, Niranjan (test code = 21 mmol/L 21-29 04039-5) Base Excess, Niranjan (test -4.5 mmol/L -2-3 L code = 1927-3) Patient Temperature 37.0 (test code = 8310-5) FIO2 (test code = 1819) 21 Lab Interpretation Abnormal (test code = 85127-0) [facility] GAS, [id number] 01:22:00 Test Item Value Reference Range Interpretation [...] (BEAKER) (test code = 1819) 21.0 ECG/EKG [id number] 23:15:17Cherie Faustin MD 05/05/2021 2:11 AMECG/EKG Interpretation Date/Time: 05/04/2021 11:26 PMPerformed by: Cherie Faustin MDAuthorized by: Cherie Faustin MD The ECG was interpreted by ED physician. The ECG is interpreted as sinus rhythm. Rate is normal rate. Heart rate is 91 BPM.ST segments normal.T-wave inversion in lead(s) V1 and V2. Clinical Impression: normal ECGCH[facility] HospitalECG/[facility] Interpretation 2021-05-04 23:15:17Cherie Faustin MD 05/05/2021 2:11 AMECG/EKG Interpretation Date/Time: 05/04/2021 11:26 PMPerformed by: Cherie Faustin MDAuthorized by: Cherie Faustin MD The ECG was interpreted by ED physician. The ECG is interpreted as sinus rhythm. Rate is normal rate. Heart rate is 91 BPM.ST segments normal.T-wave inversion in lead(s) V1 and V2. Clinical Impression: normal ECGCH[facility] HospitalECG/EKG [id number] 23:15:17 Cherie Faustin MD 05/05/2021 2:11 AMECG/EKG Interpretation Date/Time: 05/04/2021 11:26 PMPerformed by: Cherie Faustin MDAuthorized by: Cherie Faustin MD The ECG was interpreted by ED physician. The ECG is interpreted as sinus rhythm. Rate is normal rate. Heart rate is 91 BPM.ST segments normal.T- wave inversion in lead(s) V1 and V2. Clinical Impression: normal ECGCH[facility] HospitalECG/EKG [id number] 23:15:17Cherie Faustin MD 05/05/2021 2:11 AMECG/EKG Interpretation Date/Time: 05/04/2021 11:26 PMPerformed b y: Cherie Faustin MDAuthorized by: Cherie Faustin MD The ECG was interpreted by ED physician. The ECG is interpreted as sinus rhythm. Rate is normal rate. Heart rate is 91 BPM.ST segments normal.T-wave inversion in lead(s) V1 and V2. Clinical Impression: normal ECGK[facility] CenterHEPATIC FUNCTION [id number] 22:01:00 Test Item Value Reference Range Interpretation [...] Specimen moderately (test code = 347) hemolyzed Accounting Office Manager ID - IEZxoivuj2910-31-38 21:53:00 Test Item Value Reference Range Interpretation Comments Amylase (test code = 143 U/L 25-125 H Specime n 1798-8) markedly hemolyzed TORRES (test code = TORRES) Accounting Office Manager ID - DB Lab Interpretation Abnormal (test code = 94277-3) [facility] CenterLipase2021-08-23 21:53:00 Test Item Value Reference Range Interpretation Comments Lipase (test code = 3040-3) 97 U/L 8-78 H TORRES (test code = TORRES) Accounting Office Manager ID - DB Lab Interpretation (test Abnormal code = 46041-5) [facility] CenterAmylase2021-08-23 21:53:00 Test Item Value Reference Range Interpretation Comments Amylase (test code = 143 U/L 25-125 H Specime n 1798-8) markedly hemolyzed TORRES (test code = TORRES) Accounting Office Manager ID - DB Lab Interpretation Abnormal (test code = 65879-9) [facility] CenterLipase2021-08-23 21:53:00 Test Item Value Reference Range Interpretation Comments Lipase (test code = 3040-3) 97 U/L 8-78 H TORRES (test code = TORRES) Accounting Office Manager ID - DB Lab Interpretation (test Abnormal code = 16756-5) [facility] CenterAmylase2021-08-23 21:53:00 Test Item Value Reference Range Interpretation Comments Amylase (test code = 143 U/L 25-125 H Specime n 1798-8) markedly hemolyzed TORRES (test code = TORRES) Accounting Office Manager ID - DB Lab Interpretation Abnormal (test code = 42209-6) [facility] CenterLipase2021-08-23 21:53:00 Test Item Value Reference Range Interpretation Comments Lipase (test code = 3040-3) 97 U/L 8-78 H TORRES (test code = TORRES) Accounting Office Manager ID - DB Lab Interpretation (test Abnormal code = 54768-3) [facility] CenterAmylase2021-08-23 21:53:00 Test Item Value Reference Range Interpretation Comments Amylase (test code = 143 U/L 25-125 H Specime n 1798-8) markedly hemolyzed TORRES (test code = TORRES) Accounting Office Manager ID - DB Lab Interpretation Abnormal (test code = 33868-4) [facility] CenterLipase2021-08-23 21:53:00 Test Item Value Reference Range Interpretation Comments Lipase (test code = 3040-3) 97 U/L 8-78 H TORRES (test code = TORRES) Accounting Office Manager ID - DB Lab Interpretation (test Abnormal code = 47925-3) [facility] CenterBASIC METABOLIC [id number] 21:53:00 Test Item Value Reference Range Interpretation [...] S NOT APPLICABLE FOR DIALYSIS PATIEN TS. Accounting Office Manager ID - [id number] 21:53:00 Test Item Value Reference Range Interpretation Comments AMYLASE (BEAKER) (test 143 U/L 25-125 H Speci men markedly code = 349) hemolyzed Accounting Office Manager ID - [id number] 21:53:00 Test Item Value Reference Range Interpretation Comments LIPASE (BEAKER) (test code = 749) 97 U/L 8-78 H Accounting Office Manager ID - DBCBC W/PLT COUNT & AUTO [id number] 19:51:00 Test Item Value Reference Range Interpretation [...] PERCENT (BEAKER) (test code = 2801) POC-Glucose [id number] 08:41:00 Test Item Value Reference Range Interpretation Comments POC-Glucose Meter (test 104 mg/dL 70-110 : TE STED AT [facility] code = 1538) [address] [place] [address], [facility] 30: Accounting Office Manager/Techni aldo ID = [id number] for HUSSEIN LEMON Lab Interpretation (test Normal code = 16239-1) [facility]-Glucose [id number] 08:41:00 Test Item Value Reference Range Interpretation Comments POC-Glucose Meter (test 104 mg/dL 70-110 : TE STED AT [facility] code = 1538) [address] [place] [address], [facility] 30: Accounting Office Manager/Techni aldo ID = [id number] for ROCKY LEMONIE Lab Interpretation (test Normal code = 81833-4) [facility]-Glucose [id number] 08:41:00 Test Item Value Reference Range Interpretation Comments POC-Glucose Meter (test 104 mg/dL 70-110 : TE STED AT [facility] code = 1538) [address] [place] [address], [facility] 30: Accounting Office Manager/Techni aldo ID = [id number] for HUSSEIN LEMON Lab Interpretation (test Normal code = 37460-6) [facility]-Glucose [id number] 08:41:00 Test Item Value Reference Range Interpretation Comments POC-Glucose Meter (test 104 mg/dL 70-110 : TE STED AT [facility] code = 1538) [address] [facility], [address] 30: Accounting Office Manager/Techni aldo ID = [id number] for HUSSEIN LEMON Lab Interpretation (test Normal code = 38403-1) [facility]-GLUCOSE [id number] 08:41:00 Test Item Value Reference Range Interpretation Comments POC-GLUCOSE METER 104 mg/dL 70-110 : TESTED A T [facility] [address] (BEAKER) (test code = [address]AT[address] R [facility], 1538) [address]: Accounting Office Manager/Techni aldo ID = [id number] for HUSSEIN DAVID Comprehensive metabolic [id number] 06:49:00 Test Item Value Reference Range Interpretation Comments Protein, Total (test 6.8 See_Comment [Autom ated code = 2885-2) message] The system which generated this result transmit lane reference range : 6.0 - 8.3 gm/dL . The reference range was not u sed to interpret th is result as normal/abnormal . Albumin (test code = 3.5 g/dL 3.5-5 08426-0) Alkaline Phosphatase 44 U/L 40-150 (test code = 6768-6) Total Bilirubin (test 0.3 mg/dL 0.2-1.2 code = 1975-2) Sodium (test code = 139 meq/L 136-643 1706-2) Potassium (test code 3.8 meq/L 3.5-5.1 = 2823-3) Chloride (test code = 104 meq/L 98-107 2075-0) CO2 (test code = 27 meq/L -29 2027-9) BUN (test code = 12 mg/dL 7- 3094-0) Creatinine (test code 1.05 mg/dL 0.57-1.25 = 2160-0) Glucose (test code = 79 mg/dL 70-105 2345-7) Calcium (test code = 8.4 mg/dL 8.4-10.2 58580-4) AST (test code = 49 U/L 5-34 H 1920-8) ALT (test code = 41 U/L -55 1742-6) EGFR (test code = 52 mL/min/1.[address] [place] [address]-8) NOT ACCURATE CREATININE CLEARANCE IN PREDICTING GLOMERULAR FILTRATION RATE . ESTIMATED GFR I S NOT APPLICABLE FOR DIALYSIS PATIEN TS. MACDONALD (test code = TORRES) Accounting Office Manager ID - HUMBLE M Lab Interpretation Abnormal (test code = 60322-6) [facility] CenterComprehensive metabolic [id number] 06:49:00 Test Item Value Reference Range Interpretation Comments Protein, Total (test 6.8 See_Comment [Autom ated code = 2885-2) message] The system which generated this result transmit lane reference range : 6.0 - 8.3 gm/dL . The reference range was not u sed to interpret th is result as normal/abnormal . Albumin (test code = 3.5 g/dL 3.5-5 77296-2) Alkaline Phosphatase 44 U/L 40-150 (test code = 6768-6) Total Bilirubin (test 0.3 mg/dL 0.2-1.2 code = 1974-2) Sodium (test code = 139 meq/L 641-266 0165-2) Potassium (test code 3.8 meq/L 3.5-5.1 = 2823-3) Chloride (test code = 104 meq/L 98-107 2075-0) CO2 (test code = 27 meq/L 22-29 8-9) BUN (test code = 12 mg/dL 7-21 3094-0) Creatinine (test code 1.05 mg/dL 0.57-1.25 = 2160-0) Glucose (test code = 79 mg/dL 70-105 2345-7) Calcium (test code = 8.4 mg/dL 8.4-10.2 95210-4) AST (test code = 49 U/L 5-34 H 1920-8) ALT (test code = 41 U/L -55 1742-6) EGFR (test code = 52 mL/min/1.[address] [place] [address]-4) NOT ACCURATE CREATININE CLEARANCE IN PREDICTING GLOMERULAR FILTRATION RATE . ESTIMATED GFR I S NOT APPLICABLE FOR DIALYSIS PATIEN TS. TORRES (test code = TORRES) Accounting Office Manager ID - HUMBLE M Lab Interpretation Abnormal (test code = 65588-8) [facility] CenterComprehenve metabolic [id number] 06:49:00 Test Item Value Reference Range Interpretation Comments Protein, Total (test 6.8 See_Comment [Autom ated code = 2885-2) message] The system which generated this result transmit lane reference range : 6.0 - 8.3 gm/dL . The reference range was not u sed to interpret th is result as normal/abnormal . Albumin (test code = 3.5 g/dL 3.5-5 36817-0) Alkaline Phosphatase 44 U/L 40-150 (test code = 6768-6) Total Bilirubin (test 0.3 mg/dL 0.2-1.2 code = 1974-2) Sodium (test code = 139 meq/L 869-199 9962-2) Potassium (test code 3.8 meq/L 3.5-5.1 = 2823-3) Chloride (test code = 104 meq/L 98-107 2075-0) CO2 (test code = 27 meq/L 22-29 2028-9) BUN (test code = 12 mg/dL 7-21 3094-0) Creatinine (test code 1.05 mg/dL 0.57-1.25 = 2160-0) Glucose (test code = 79 mg/dL 70-105 2345-7) Calcium (test code = 8.4 mg/dL 8.4-10.2 24343-8) AST (test code = 49 U/L 5-34 H 1920-8) ALT (test code = 41 U/L 6-55 1742-6) EGFR (test code = 52 mL/min/1.[address] [place] [address]-0) NOT ACCURATE CREATININE CLEARANCE IN PREDICTING GLOMERULAR FILTRATION RATE . ESTIMATED GFR I S NOT APPLICABLE FOR DIALYSIS PATIEN TS. TORRES (test code = TORRES) Accounting Office Manager ID - HUMBLE M Lab Interpretation Abnormal (test code = 73929-7) [facility] CenterComprehensive metabolic [id number] 06:49:00 Test Item Value Reference Range Interpretation Comments Protein, Total (test 6.8 See_Comment [Autom ated code = 2885-2) message] The system which generated this result transmit lane reference range : 6.0 - 8.3 gm/dL . The reference range was not u sed to interpret th is result as normal/abnormal . Albumin (test code = 3.5 g/dL 3.5-5 69530-0) Alkaline Phosphatase 44 U/L 40-150 (test code = 6768-6) Total Bilirubin (test 0.3 mg/dL 0.2-1.2 code = 1974-2) Sodium (test code = 139 meq/L 834-646 4375-2) Potassium (test code 3.8 meq/L 3.5-5.1 = 2823-3) Chloride (test code = 104 meq/L 98-107 2075-0) CO2 (test code = 27 meq/L 22-29 8-9) BUN (test code = 12 mg/dL 7-21 3094-0) Creatinine (test code 1.05 mg/dL 0.57-1.25 = 2160-0) Glucose (test code = 79 mg/dL 70-105 2345-7) Calcium (test code = 8.4 mg/dL 8.4-10.2 07882-2) AST (test code = 49 U/L 5-34 H 1920-8) ALT (test code = 41 U/L 6-55 1742-6) EGFR (test code = 52 mL/min/1.[address] [place] [address]-8) NOT ACCURATE CREATININE CLEARANCE IN PREDICTING GLOMERULAR FILTRATION RATE . ESTIMATED GFR I S NOT APPLICABLE FOR DIALYSIS PATIEN TS. TORRES (test code = TORRES) Accounting Office Manager ID - HUMBLE M Lab Interpretation Abnormal (test code = 14821-6) [facility] CenterCOMPREHENSIVE METABOLIC [id number] 06:49:00 Test Item Value Reference Range Interpretation [...] S NOT APPLICABLE FOR DIALYSIS PATIEN TS. Accounting Office Manager ID - HUMBLE MPOCT-GLUCOSE [id number] 16:54:00 Test Item Value Reference Range Interpretation Comments POC-GLUCOSE METER 171 mg/dL 70-110 H : TESTED A T [facility] 6720 (BEAKER) (test code = [place], 1538) [address]: Accounting Office Manager/Techni aldo ID = [id number] for ALBINO GONZALEZ Hemoglobin [id number] 15:22:00 Test Item Value Reference Range Interpretation Comments Hemoglobin A1C (test code = 4548-4) 6.2 % 4.3-6.1 H Lab Interpretation (test code = Abnormal 68819-2) [facility] CenterHemoglobin [id number] 15:22:00 Test Item Value Reference Range Interpretation Comments Hemoglobin A1C (test code = 4548-4) 6.2 % 4.3-6.1 H Lab Interpretation (test code = Abnormal 71305-9) [facility] CenterHemoglobin [id number] 15:22:00 Test Item Value Reference Range Interpretation Comments Hemoglobin A1C (test code = 4548-4) 6.2 % 4.3-6.1 H Lab Interpretation (test code = Abnormal 37886-5) [facility] CenterHemoglobin [id number] 15:22:00 Test Item Value Reference Range Interpretation Comments Hemoglobin A1C (test code = 4548-4) 6.2 % 4.3-6.1 H Lab Interpretation (test code = Abnormal 22811-5) [facility] CenterHEMOGLOBIN [id number] 15:22:00 Test Item Value Reference Range Interpretation Comments HEMOGLOBIN A1C (BEAKER) (test code = 6.2 % 4.3-6.1 H 368) POCT-GLUCOSE [id number] 12:56:00 Test Item Value Reference Range Interpretation Comments POC-GLUCOSE METER 93 mg/dL 70-110 : Notified RN/MD: TESTED (BEAKER) (test code = [facility] [address] [facility], [facility] 30: Accounting Office Manager/Techni aldo ID = [id number] for Arely Correa [place], [id number] 12:02:00Reason for exam:->[facility] : 1950 Sex: FFluoroscopic unit utilized for a procedure performed in the OR. No interpretation was requested. Refer to theoperative report for findings. Refer to PACS for patient radiation dose information.[facility] Endoscopic Retrograde [id number] 12:02:00Interface, External Ris In - 03/10/2021 12:18 PM CDTFluoroscopic unit utilized for a procedure performed in the OR. No interpretation was requested. Refer to the operative report for findings. Refer toPACS for patient radiation dose information.[facility] Endoscopic Retrograde Okonq[id number] 12:02:00Interface, External Ris In - 03/10/2021 12:18 PM CDTFluoroscopic unit utilized for a procedure performed in the OR. No interpretation was requested. Refer to the operative report for findings. Refer toPACS for patient radiation dose information.[facility] Endoscopic Retrograde Tqlfeyahrjjggpygeymxpgac4917-34-72 12:02:00Interface, External Ris In 03/10/2021 12:18 PM CDTFluoroscopic unit utilized for a procedure performed in the OR. No interpretation was requested. Refer to the operative report for findings. Refer toPACS for patient radiation dose information.[facility] Endoscopic Retrograde Opvjflwgmlkmpbzpqalkzlsg5276-25-50 12:02:00Interface, External Ris In 03/10/2021 12:18 PM CDTFluoroscopic unit utilized for a procedure performed in the OR. No interpretation was requested. Refer to the operative report for findings. Refer toPACS for patient radiation dose information.[facility] CenterPOCT-GLUCOSE [id number] 09:27:00 Test Item Value Reference Range Interpretation Comments POC-GLUCOSE METER 74 mg/dL 70-110 : TESTED A T [facility] 6720 (BEAKER) (test code = FORTUNATO Kaba [facility], 1538) [address]: Accounting Office Manager/Techni aldo ID = [id number] for ALBINO ROSS COMPREHENSIVE METABOLIC [id number] 05:49:00 Test Item Value Reference Range Interpretation [...] S NOT APPLICABLE FOR DIALYSIS PATIEN TS. Accounting Office Manager ID - HUMBLE [facility] (Hemogram only)2021-03-10 05:10:00 Test Item Value Reference Range Interpretation Comments WBC (test code = 6690-2) 9.1 See_Comment [A utomated message] The system [employer] generated this result transmitted ref erence range: 3.5 - 10 .5 K/L. The refe rence range was not u sed to interpret this result as normal/abnor mal. RBC (test code = 789-8) 3.57 See_Comment L [Au tomated message] The system [employer] generated this result transmitted ref erence range: 3.93 - 5 .22 M/L. The refe rence range was not u sed to interpret this result as normal/abnor mal. MCHC (test code = 786-4) 30.9 See_Comment L [A utomated message] The system [employer] generated this result transmitted ref erence range: [...] See_Comment [Aut omated message] 777-3) The system [employer] generated this result transmitted ref erence range: 150 - 45 0 K/CU MM. The referen ce range was not u sed to interpret this result as normal/abnor mal. MPV (test code = 9.3 fL 9.4-12.3 L 08345-5) nRBC (test code = 413) 0 See_Comment [Aut omated message] The system [employer] generated this result transmitted ref erence range: 0 - 0 /1 00 WBC. The refere nce range was not u sed to interpret this result as normal/abnor mal. Lab Interpretation (test Abnormal code = 13391-4) [facility] CenterCB (Hemogram only)2021-03-10 05:10:00 Test Item Value Reference Range Interpretation Comments WBC (test code = 6690-2) 9.1 See_Comment [A utomated message] The system [employer] generated this result transmitted ref erence range: 3.5 - 10 .5 K/L. The refe rence range was not u sed to interpret this result as normal/abnor mal. RBC (test code = 789-8) 3.57 See_Comment L [Au tomated message] The system [employer] generated this result transmitted ref erence range: 3.93 - 5 .22 M/L. The refe rence range was not u sed to interpret this result as normal/abnor mal. MCHC (test code = 786-4) 30.9 See_Comment L [A utomated message] The system [employer] generated this result transmitted ref erence range: [...] code = 278 See_Comment [Aut omated message] 597-3) The system [employer] generated this result transmitted ref erence range: 150 - 45 0 K/CU MM. The referen ce range was not u sed to interpret this result as normal/abnor mal. MPV (test code = 9.3 fL 9.4-12.3 L 85695-2) nRBC (test code = 413) 0 See_Comment [Aut omated message] The system [employer] generated this result transmitted ref erence range: 0 - 0 /1 00 WBC. The refere nce range was not u sed to interpret this result as normal/abnor mal. Lab Interpretation (test Abnormal code = 34368-3) [facility] ([facility] only)2021-03-10 05:10:00 Test Item Value Reference Range Interpretation Comments WBC (test code = 6690-2) 9.1 See_Comment [A utomated message] The system [employer] generated this result transmitted ref erence range: 3.5 - 10 .5 K/L. The refe rence range was not u sed to interpret this result as normal/abnor mal. RBC (test code = 789-8) 3.57 See_Comment L [Au tomated message] The system [employer] generated this result transmitted ref erence range: 3.93 - 5 .22 M/L. The refe rence range was not u sed to interpret this result as normal/abnor mal. MCHC (test code = 786-4) 30.9 See_Comment L [A utomated message] The system [employer] generated this result transmitted ref erence range: [...] See_Comment [Aut omated message] 777-3) The system [employer] generated this result transmitted ref erence range: 150 - 45 0 K/CU MM. The referen ce range was not u sed to interpret this result as normal/abnor mal. MPV (test code = 9.3 fL 9.4-12.3 L 69924-7) nRBC (test code = 413) 0 See_Comment [Aut omated message] The system [employer] generated this result transmitted ref erence range: 0 - 0 /1 00 WBC. The refere nce range was not u sed to interpret this result as normal/abnor mal. Lab Interpretation (test Abnormal code = 81796-5) [facility] (Hemogram only)2021-03-10 05:10:00 Test Item Value Reference Range Interpretation Comments WBC (test code = 6690-2) 9.1 See_Comment [A utomated message] The system [employer] generated this result transmitted ref erence range: 3.5 - 10 .5 K/L. The refe rence range was not u sed to interpret this result as normal/abnor mal. RBC (test code = 789-8) 3.57 See_Comment L [Au tomated message] The system [employer] generated this result transmitted ref erence range: 3.93 - 5 .22 M/L. The refe rence range was not u sed to interpret this result as normal/abnor mal. MCHC (test code = 786-4) 30.9 See_Comment L [A utomated message] The system [employer] generated this result transmitted ref erence range: [...] See_Comment [Aut omated message] 777-3) The system [employer] generated this result transmitted ref erence range: 150 - 45 0 K/CU MM. The referen ce range was not u sed to interpret this result as normal/abnor mal. MPV (test code = 9.3 fL 9.4-12.3 L 42039-4) nRBC (test code = 413) 0 See_Comment [Aut omated message] The system [employer] generated this result transmitted ref erence range: 0 - 0 /1 00 WBC. The refere nce range was not u sed to interpret this result as normal/abnor mal. Lab Interpretation (test Abnormal code = 90394-7) [facility] (HEMOGRAM ONLY)2021-03-10 05:10:00 Test Item Value [...] 0-0 (BEAKER) (test code = 413) POCT-GLUCOSE [id number] 00:05:00 Test Item Value Reference Range Interpretation Comments POC-GLUCOSE METER 83 mg/dL 70-110 : TESTED A T [facility] 6720 (LIA) (test code = [place], 1538) [address]: Accounting Office Manager/Techni aldo ID = [id number] for BRENDA VENCES SARS-COV2/RT-PCR ([facility])2021-03-09 23:58:00 Test Item Value Reference Range Interpretation Comments SARS-COV2/RT-PCR (test Negative Not Detected, Negative, code = 0339504) See external report for linked test SARS-COV-2 PERFORMING LAB [facility] SHIV (test code = 6074252) Negative result for this test determines that [...] of the Act.Fact Sheet for Healthcare Prov iders:https://www.[employer]/sites/default/files/product/documents/Fact_Sheet_HC _Pdkmmefrd_Tzku_QDMW-DvK-0.pdfFact Sheet for Healthcare Patients:https://www.[employer]/sites/default/files/product/docume nts/Cdud_Zignr_Blgelidu_Gcas_EXEY-ThX-0.pdfPerforming Laboratory:[facility] [place], [place] [address]OSGL-BUUDJUH METER 2021-03-09 17:34:00 Test Item Value Reference Range Interpretation Comments POC-GLUCOSE METER 97 mg/dL 70-110 : TESTED A T [facility] 6720 (BEAKER) (test code = FORTUNATO Kaba [facility], 1538) [address]: Accounting Office Manager/Techni aldo ID = [id number] for ALBINO ROSS MR, ABDOMEN, [id number] 17:11:00Unlisted Reason for Exam - Click Yes and Enter Reason Below->NoPatient with hyperdense material seen in distal CBD on CTA performed [facility] : 1950 Sex: FFINAL [...] MDReport Verified Date/Time: 03/09/2021 17:11:18 Reading Location: [address] Transitional Reading Room MR abdomen without IV contrast [id number] 17:11:00 Interface, External Ris In - 03/09/2021 [...] with steatosis.Gallbladder: The gallbladder is surgically absent.Pancreas: Unrema rkable. Additional Findings:Lung bases: Trace bilateral pleural effusions. [...] MDReport Verified Date/Time: 03/09/2021 17:11:18 Reading Location: [facility] C013T Transitional Reading Room [facility] contrast [id number] 17:11:00Interface, External Ris In - 03/09/2021 5:13 [...] MDReport Verified Date/Time: 03/09/2021 17:11:18 Reading Location: [facility] B1 C013T Transitional Reading Room [facility] without IV contrast [id number] 17:11:00Interface, External Ris In - 03/09/2021 5:13 [...] MDReport Verified Date/Time: 03/09/2021 17:11:18 Reading Location: [address] Transitional Reading Room [facility] without IV contrast [id number] 17:11:00Interface, External Ris In - 03/09/2021 5:13 [...] CT 12/29/2005 but appears chronic Signed: Ashely Peraltaort Verified Date/Time: 03/09/2021 17:11:18 Reading Location: [address] Transitional Reading Room [facility] CenterPO[facility]SE [id number] 12:41:00 Test Item Value Reference Range Interpretation Comments POC-GLUCOSE METER 92 mg/dL 70-110 : TESTED A T [facility] 6720 (BEAKER) (test code = FORTUNATO Kaba [facility], 1538) [address]: Accounting Office Manager/Techni aldo ID = [id number] for PARESH NO, ALBINO Urinalysis w/Microscopic + Reflex to [id number] 11:21:00 Test Item Value Reference Range Interpretation Comments Color, UA (test code Light Yellow = 5778-6) Clarity, UA (test Clear code = 5767-9) Specific [place], UA 1.033 1.001-1.035 (test code = 5811-5) pH, UA (test code = 5.5 5.0-8.0 5803-2) Protein, UA (test Negative Negative code = 67929-3) Glucose, UA (test Negative Negative code = 365) Ketones, UA (test Negative Negative code = 2514-8) Bilirubin, UA (test Negative Negative code = 74284-9) Blood, UA (test code Trace Negative A = 37467-6) Nitrite, UA (test Negative Negative code = 5802-4) Leukocytes, UA (test Negative Negative code = 5799-2) Urobilinogen, UA 0.2 mg/dL 0.2-1 (test code = 68978-7) RBC, UA (test code = 2 See_Comment [Autom ated 08829-8) message] The system which generated this result [...] Bacteria, UA (test None Seen code = 53029-8) Mucus (test code = Rare 8247-9) Squam Epithel, UA 1 See_Comment [Automate d (test code = 42148-3) messag e] The system which generated this result transmit lane reference range : /HPF. The reference range was not used to interpret this result as normal/abnormal . Crystals, Urine (test None Seen code = 85109-7) Specimen Source (test code = 2795) TORRES (test code = TORRES) Accounting Office Manager ID - [auto]Accounting Office Manager ID - tech Lab Interpretation Abnormal (test code = 25131-0) [facility] CenterUrinalysis w/Microscopic + Reflex to Culture 2021-03-09 11:21:00 Test Item Value Reference Range Interpretation Comments Color, UA (test code Light Yellow = 5778-6) Clarity, UA (test Clear code = 5767-9) Specific Milroy, UA 1.033 1.001-1.035 (test code = 5811-5) pH, UA (test code = 5.5 5.0-8.0 5803-2) Protein, UA (test Negative Negative code = 10233-5) Glucose, UA (test Negative Negative code = 365) Ketones, UA (test Negative Negative code = 2514-8) Bilirubin, UA (test Negative Negative code = 80002-8) Blood, UA (test code Trace Negative A = 05091-4) Nitrite, UA (test Negative Negative code = 5802-4) Leukocytes, UA (test Negative Negative code = 5799-2) Urobilinogen, UA 0.2 mg/dL 0.2-1 (test code = 66386-9) RBC, UA (test code = 2 See_Comment [Autom ated 21211-2) message] The system which generated this result [...] Bacteria, UA (test None Seen code = 97292-8) Mucus (test code = Rare 8247-9) Squam Epithel, UA 1 See_Comment [Automate d (test code = 57977-8) messag e] The system which generated this result transmit lane reference range : /HPF. The reference range was not used to interpret this result as normal/abnormal . Crystals, Urine (test None Seen code = 94330-5) Specimen Source (test code = 2795) TORRES (test code = TORRES) Accounting Office Manager ID - [auto]Accounting Office Manager ID - tech Lab Interpretation Abnormal (test code = 02377-7) [facility] CenterUrinalysis w/Microscopic + Reflex to Culture 2021-03-09 11:21:00 Test Item Value Reference Range Interpretation Comments Color, UA (test code Light Yellow = 5778-6) Clarity, UA (test Clear code = 5767-9) Specific Milroy, UA 1.033 1.001-1.035 (test code = 5811-5) pH, UA (test code = 5.5 5.0-8.0 5803-2) Protein, UA (test Negative Negative code = 84635-1) Glucose, UA (test Negative Negative code = 365) Ketones, UA (test Negative Negative code = 2514-8) Bilirubin, UA (test Negative Negative code = 10418-3) Blood, UA (test code Trace Negative A = 61271-9) Nitrite, UA (test Negative Negative code = 5802-4) Leukocytes, UA (test Negative Negative code = 5799-2) Urobilinogen, UA 0.2 mg/dL 0.2-1 (test code = 99230-6) RBC, UA (test code = 2 See_Comment [Autom ated 14170-5) message] The system which generated this result [...] Bacteria, UA (test None Seen code = 76069-9) Mucus (test code = Rare 8247-9) Squam Epithel, UA 1 See_Comment [Automate d (test code = 31220-2) messag e] The system which generated this result transmit lane reference range : /HPF. The reference range was not used to interpret this result as normal/abnormal . Crystals, Urine (test None Seen code = 41576-6) Specimen Source (test code = 2795) TORRES (test code = TORRES) Accounting Office Manager ID - [auto]Accounting Office Manager ID - tech Lab Interpretation Abnormal (test code = 35355-0) [facility] CenterUrinalysis w/Microscopic + Reflex to Culture 2021-03-09 11:21:00 Test Item Value Reference Range Interpretation Comments Color, UA (test code Light Yellow = 5778-6) Clarity, UA (test Clear code = 5767-9) Specific Mil[place], UA 1.033 1.001-1.035 (test code = 5811-5) pH, UA (test code = 5.5 5.0-8.0 5803-2) Protein, UA (test Negative Negative code = 25919-4) Glucose, UA (test Negative Negative code = 365) Ketones, UA (test Negative Negative code = 2514-8) Bilirubin, UA (test Negative Negative code = 71456-7) Blood, UA (test code Trace Negative A = 89416-7) Nitrite, UA (test Negative Negative code = 5802-4) Leukocytes, UA (test Negative Negative code = 5799-2) Urobilinogen, UA 0.2 mg/dL 0.2-1 (test code = 44841-0) RBC, UA (test code = 2 See_Comment [Autom ated 25589-9) message] The system which generated this result [...] Bacteria, UA (test None Seen code = 78803-3) Mucus (test code = Rare 8247-9) Squam Epithel, UA 1 See_Comment [Automate d (test code = 13587-1) javier e] The system which generated this result transmit lane reference range : /HPF. The reference range was not used to interpret this result as normal/abnormal . Crystals, Urine (test None Seen code = 47372-6) Specimen Source (test code = 2795) TORRES (test code = TORRES) Accounting Office Manager ID - [auto]Accounting Office Manager ID - tech Lab Interpretation Abnormal (test code = 56174-2) [facility] CenterURINALYSIS W/ REFLEX URINE [id number] 11:21:00 Test Item Value Reference Range Interpretation [...] = 1521) SOURCE(BEAKER) (test code = 2795) Accounting Office Manager ID - [auto]Accounting Office Manager ID - techHEMOGLOBIN [id number] 10:22:00 Test Item Value Reference Range Interpretation Comments HEMOGLOBIN A1C (BEAKER) (test code = 6.1 % 4.3-6.1 368) [id number] 06:48:00 Test Item Value Reference Range Interpretation Comments Magnesium (test code = 2.1 mg/dL 1.6-2.6 72480-7) TORRES (test code = TORRES) Accounting Office Manager ID - ELVIN W Lab Interpretation (test Normal code = 86162-7) [facility] CenterMagnesium2021-06-28 06:48:00 Test Item Value Reference Range Interpretation Comments Magnesium (test code = 2.1 mg/dL 1.6-2.6 75007-6) TORRES (test code = TORRES) Accounting Office Manager ID - ELVIN W Lab Interpretation (test Normal code = 37528-4) [facility] CenterMagnesium2021-06-28 06:48:00 Test Item Value Reference Range Interpretation Comments Magnesium (test code = 2.1 mg/dL 1.6-2.6 48611-8) TORRES (test code = TORRES) Accounting Office Manager ID - ELVIN W Lab Interpretation (test Normal code = 46591-4) [facility] CenterMagnesium2021-06-28 06:48:00 Test Item Value Reference Range Interpretation Comments Magnesium (test code = 2.1 mg/dL 1.6-2.6 46657-6) TORRES (test code = TORRES) Accounting Office Manager ID - ELVIN W Lab Interpretation (test Normal code = 29440-9) [facility] CenterBASIC METABOLIC [id number] 06:48:00 Test Item Value Reference Range Interpretation [...] S NOT APPLICABLE FOR DIALYSIS PATIEN TS. Accounting Office Manager ID Carlo OCONNOR [id number] 06:48:00 Test Item Value Reference Range Interpretation Comments MAGNESIUM (BEAKER) (test code = 2.1 mg/dL 1.6-2.6 627) Accounting Office Manager ID Carlo OCONNOR WHEPATIC FUNCTION [id number] 06:48:00 Test Item Value Reference Range Interpretation [...] (test code = 30 U/L 6-55 347) Accounting Office Manager ID Carlo OCONNOR WPROTHROMBIN TIME/[id number] 06:32:00 Test Item Value Reference Range Interpretation Comments PROTIME (BEAKER) 12.9 seconds 11.9-14.2 (test code = 759) INR (BEAKER) (test 0.99 See_Comment [Automat ed message] code = 370) The system [employer] generated this result transmitted ref erence range: <=5.90. The reference range was not used to int erpret this result as normal/abnormal . RECOMMENDED COUMADIN/WARFARIN INR THERAPY RANGESSTANDARD DOSE: 2.0 - 3.0 Includes: PROPHYLAXIS for venous thrombosis, systemic embolization; TREATMENT for venous thrombosis and/or pulmonary embolus.HIGH RISK: Target INR is 2.5-3.5 for patients with mechanical heart valves.CBC W/PLT COUNT & AUTO [id number] 06:29:00 Test Item Value Reference Range Interpretation [...] code = 2801) MRI Brain wo contrast [id number] 16:25:00Patient Name: RIYA LUNADOB: 1950. Age: 67 years. Gender: Female.MR: [id number]. Location: [facility]. Provider: Hollie Acuña MD.EXAM: Brain wo contrast MRI.PROVIDED CLINICAL HISTORY: Headaches for 2 months with pain radiating down theentire right side of the body. R51 Headache TECHNIQUE: Multi-sequence, multi-planar MR of the brain without gadoliniumcontrast. COMPARISON: No relevant priorexams available at the time of interpretation. FINDINGS: BRAIN: -- Mild confluent abnormally i ncreased T2 and FLAIR signal throughout thesupratentorial periventricular [...] significant midline shift. VESSELS: No loss of flowvoids within the major intracranial vessels or duralsinuses. [...] abnormality. Mild chronic microangiopathic ischemic gliosis. SL: [id number] by: Finesse Dias MDDictated Date/time: 02/08/18 17:31Electronically Signed by: Finesse Dias MD 02/08/1817:40FINAL REPORT[facility] Brain w/wo contrast [id number] 2018-02-08 13:39:00 Test Item Value Reference Range Interpretation Comments Brain w/wo contrast MRI Cancel Reason: Exam (test code = Brain w/wo Replaced contrast MRI) [facility]
[2023-03-28] MEDS ORDERED: LEVALBUTEROL 0.63 MG/3 ML NEB ONE (20:53)
[2023-03-28] MEDS ORDERED: ALBUTEROL 2.5 MG/3 ML NEB SOL ONE (20:54)
[2023-03-28] MEDS ORDERED: ACETAMINOPHEN 500 MG TAB ONE (20:54)
--- NOTE | 2023-03-28 21:11 | RAD REPORT ---
EXAM DESCRIPTION: CTSinus Wo Cont03/28/2023 8:55 pm CLINICAL HISTORY: Facial pain COMPARISON: None. TECHNIQUE: Computed axial tomography of the sinuses were obtained with coronal and sagittal reconstr uction. All CT scans are performed using dose optimization technique as appropriate and may include automated exposure control or mA/KV adjustment according to patient size. FINDINGS: Minimal mucoperiosteal thickening right maxillary antrum. Minimal mucoperiosteal thickening ethmoid sinus The left maxillary, sphenoid and frontal sinuses are clear The ostiomeatal complexes are patent bilaterally. The mastoids are clear. IMPRESSION: 1. Minimal chronic right maxillary and ethmoid sinusitis 2. Patent ostiomeatal complexes.
--- NOTE | 2023-03-28 21:26 | RAD REPORT ---
EXAM DESCRIPTION: Jose Single View03/28/2023 9:13 pm CLINICAL HISTORY: Congestion COMPARISON: December 2022 FINDINGS: The lungs appear clear of acute infiltrate. The heart is borderline enlarged IMPRESSION: No acute abnormalities displayed
--- NOTE | 2023-03-28 21:41 | ER ---
Nurse's Notes [facility] Jose A Name: Alberto Botello Age: 72 yrs Sex: Female : 1950 Arrival Date: 03/28/2023 Time: 19:54 Bed 3 Private MD: Diagnosis: Acute ethmoidal sinusitis Presentation: 03/28 20:22 Chief complaint: Patient's son or daughter states: "she hasn't been feeling good. she as6 has been having a runny nose and cough". Coronavirus screen: At this time, the client does not indicate any symptoms associated with coronavirus-19. Ebola Screen: No symptoms or risks identified at this time. Initial Sepsis Screen: Does the patient meet any 2 criteria? No. Patient's initial sepsis screen is negative. Does the patient have a suspected source of infection? No. Patient's initial sepsis screen is negative. Risk Assessment: Do you want to hurt yourself or someone else? Patient reports no desire to harm self or others. Onset of symptoms was March 21, 2023. 20:22 Method Of Arrival: Wheelchair as6 20:22 Acuity: ART 3 as6 Historical: - Allergies: 20:25 No Known Allergies; as6 - PMHx: 20:25 Anxiety; Chronic pain; Diabetes - NIDDM; Hepatitis; Hypertension; Osteoporosis; as6 Pancreatitis; - PSHx: 20:25 Cholecystectomy; Total abdominal hysterectomy; hip; as6 - Immunization history:: Client reports receiving the 2nd dose of the Covid vaccine. - Social history:: Smoking status: Patient denies any tobacco usage or history of. Screenin:53 [facility] ED Fall Risk Assessment (Adult) History of falling in the last 3 months, mb9 including since admission Yes- single mechanical fall (1 pt) Confusion or Disorientation No (0 pts) Intoxicated or Sedated No (0 pts) Impaired Gait No (0 pts) Mobility Assist Device Used No (0 pt) Altered Elimination No (0 pt) Score/Fall Risk Level 0 - 2 = Low Risk Oriented to surroundings, Maintained a safe environment, Educated pt \\T\\ family on fall prevention, incl call for assistance when getting out of bed. Abuse screen: Denies threats or abuse. Nutritional screening: No deficits noted. Tuberculosis screening: No symptoms or risk factors identified. Assessment: 20:52 General: Appears in no apparent distress. Behavior is calm, cooperative. Pain: mb9 Complains of pain in HEAD Pain does not radiate. Quality of pain is described as throbbing. Neuro: Monreal Agitation-Sedation Scale (RASS): 0 - Alert and Calm Level of Consciousness is awake, alert, obeys commands, Oriented to person, place, time, situation, Appropriate for age Reports headache. Cardiovascular: Patient's skin is warm and dry. Rhythm is regular. Respiratory: Airway is patent Respiratory effort is even, unlabored, Respiratory pattern is regular, symmetrical, Breath sounds are clear bilaterally. Respiratory: Parent/caregiver reports the patient having cough that is. GI: No signs and/or symptoms were reported involving the gastrointestinal system. EENT: Nares are clear with drainage noted bilaterally. Derm: Skin is pink, warm \\T\\ dry. Musculoskeletal: Range of motion: intact in all extremities. 21:41 Reassessment: Patient and/or family updated on plan of care and expected duration. Pain mb9 level reassessed. Patient is alert, oriented x 3, equal unlabored respirations, skin warm/dry/pink. Patient states feeling better. Patient states symptoms have improved. Vital Signs: 20:22 BP 150 / 77; Pulse 82; Resp 18 S; Temp 99.1(O); Pulse Ox 93% on R/A; Weight 70.31 kg as6 (R); Height 5 ft. 0 in. (R); 21:39 BP 154 / 82; Pulse 74; Resp 16; Pulse Ox 96% on R/A; mb9 20:22 Body Mass Index 30.27 (70.31 kg, 152.4 cm) as6 ED Course: 19:57 Patient arrived in ED. ag3 20:00 Mike Shelton MD is Attending Physician. sp3 20:02 Mike Shelton MD is Attending Physician. sp3 20:25 Triage completed. as6 20:26 Arm band placed on. as6 20:37 Shirley Pelayo, YOSVANY is Primary Nurse. mb9 20:52 SARS-COV-2 RT PCR Sent. mb9 20:52 Flu Sent. mb9 20:53 Placed in gown. Bed in low position. Call light in reach. Side rails up X 1. Client mb9 placed on continuous cardiac and pulse oximetry monitoring. NIBP monitoring applied. 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 20:53 No provider procedures requiring assistance completed. mb9 20:57 CT Sinus Wo Cont In Process Unspecified. EDMS 21:14 CXR XRAY In Process Unspecified. EDMS 21:42 Patient did not have IV access during this emergency room visit. mb9 Administered Medications: 20:52 Drug: Acetaminophen PO 1000 mg Route: PO; mb9 21:41 Follow up: Response: No adverse reaction mb9 21:11 Drug: DuoNeb Nebulize (2.5 mg - 0.5 mg) 3 ml Route: Nebulizer; mb9 21:40 Follow up: Response: No adverse reaction mb9 21:50 Drug: Ketorolac IM 30 mg Route: IM; Site: right deltoid; mb9 21:54 Follow up: Response: No adverse reaction mb9 Medication: 20:53 VIS not applicable for this client. mb9 Outcome: 21:40 Discharge ordered by . sp3 21:44 Discharged to home ambulatory. mb9 21:44 Condition: stable 21:44 Discharge instructions given to patient, Instructed on discharge instructions, follow up and referral plans. Demonstrated understanding of instructions, follow-up care, medications, Prescriptions given X 1. 21:55 Patient left the ED. mb9 Signatures: Dispatcher [employer] EDWA Loida Gaitan 3 Mike Shelton MD MD sp3 Tyler Mendez RN RN as6 Shirley Pelayo RN RN mb9
--- NOTE | 2023-03-28 21:41 | EDPHYS ---
Physician Documentation [facility] Name: Alberto Botello Age: 72 yrs Sex: Female : 1950 Arrival Date: 03/28/2023 Time: 19:54 Bed 3 Private MD: ED Physician Mike Shelton HPI: 03/28 20:41 This 72 yrs old [place] Female presents to ER via Wheelchair with complaints of Runny sp3 Nose, Breathing Difficulty. 20:41 72-year-old female with history of diabetes, hypertension, anxiety, chronic pain sp3 presents to the ED with chief complaint of runny nose, frontal headache in her sinuses, and cough for 7 days. Patient saw her PCP Dr. Díaz who just recommended allergy medications which have not helped. She also endorses subjective fever and "feeling warm" which comes and goes. Body aches are also present. She denies neck pain, chest pain, shortness of breath, abdominal pain, nausea, vomiting, diarrhea, rash, known sick contacts, travel history, or any other signs or symptoms on ROS at this time.. Historical: - Allergies: 20:25 No Known Allergies; as6 - PMHx: 20:25 Anxiety; Chronic pain; Diabetes - NIDDM; Hepatitis; Hypertension; Osteoporosis; as6 Pancreatitis; - PSHx: 20:25 Cholecystectomy; Total abdominal hysterectomy; hip; as6 - Immunization history:: Client reports receiving the 2nd dose of the Covid vaccine. - Social history:: Smoking status: Patient denies any tobacco usage or history of. ROS: 20:42 Constitutional: Negative for fever, chills, and weight loss, Eyes: Negative for injury, sp3 pain, redness, and discharge, ENT: Negative for injury, pain, and discharge, Neck: Negative for injury, pain, and swelling, Cardiovascular: Negative for chest pain, palpitations, and edema, Abdomen/GI: Negative for abdominal pain, nausea, vomiting, diarrhea, and constipation, Back: Negative for injury and pain, MS/Extremity: Negative for injury and deformity, Skin: Negative for injury, rash, and discoloration, Neuro: Negative for headache, weakness, numbness, tingling, and seizure, Psych: Negative for depression, anxiety, suicide ideation, homicidal ideation, and hallucinations, Allergy/Immunology: Negative for hives, rash, and allergies, Endocrine: Negative for neck swelling, polydipsia, polyuria, polyphagia, and marked weight changes. 20:42 All other systems are negative. Exam: 20:42 Constitutional: This is a well developed, well nourished patient who is awake, alert, sp3 and in no acute distress. Head/Face: Normocephalic, atraumatic. Eyes: Pupils equal round and reactive to light, extra-ocular motions intact. Lids and lashes normal. Conjunctiva and sclera are non-icteric and not injected. Cornea within normal limits. Periorbital areas with no swelling, redness, or edema. ENT: Nares patent. No nasal discharge, no septal abnormalities noted. External auditory canals are clear. Oropharynx with no redness, swelling, or masses, exudates, or evidence of obstruction, uvula midline. Mucous membranes moist. Neck: Trachea midline, no thyromegaly or masses palpated, and no cervical lymphadenopathy. Supple, full range of motion without nuchal rigidity, or vertebral point tenderness. No Meningismus. Chest/axilla: Normal chest wall appearance and motion. Nontender with no deformity. No lesions are appreciated. Cardiovascular: Regular rate and rhythm with a normal S1 and S2. No gallops, murmurs, or rubs. Normal PMI, no JVD. No pulse deficits. Abdomen/GI: Soft, non-tender, with normal bowel sounds. No distension or tympany. No guarding or rebound. No evidence of tenderness throughout. Back: No spinal tenderness. No costovertebral tenderness. Full range of motion. Skin: Warm, dry with normal turgor. Normal color with no rashes, no lesions, and no evidence of cellulitis. 20:42 Respiratory: Positive cough, rhonchi and scattered wheezes.. Vital Signs: 20:22 BP 150 / 77; Pulse 82; Resp 18 S; Temp 99.1(O); Pulse Ox 93% on R/A; Weight 70.31 kg as6 (R); Height 5 ft. 0 in. (R); 21:39 BP 154 / 82; Pulse 74; Resp 16; Pulse Ox 96% on R/A; mb9 20:22 Body Mass Index 30.27 (70.31 kg, 152.4 cm) as6 MDM: 20:30 Patient medically screened. sp3 20:43 Data reviewed: vital signs, nurses notes, penitentiary records, old medical records, sp3 lab test result(s), radiologic studies. ED course: 72-year-old female with PMH above now presents with upper respiratory symptoms, sinus symptoms and cough. Will obtain CT scan of the sinuses, chest x-ray, swabs for flu and COVID and administer albuterol/Atrovent and Tylenol for symptomatic treatment. Patient is not septic and I do not believe has significant pathology including acute coronary syndrome, pulm embolism, thoracic pathology including dissection and aneurysm, pneumonia, pneumothorax, meningitis, or any other critical pathology at this time. Consider sinusitis, upper respiratory infection, viral syndrome, COVID, influenza, among others. Work-up as above and disposition pending work-up and patient course.. 21:39 ED course: CT scan demonstrates mild sinusitis. Chest x-ray is clean. Swabs are sp3 negative. We will safely discharge patient home on p.o. Levaquin and follow-up with her PCP.. 03/28 20:37 Order name: Flu; Complete Time: 21:39 sp3 03/28 20:37 Order name: SARS-COV-2 RT PCR; Complete Time: 21:45 sp3 03/28 20:37 Order name: CT Sinus Wo Cont; Complete Time: 21:39 sp3 03/28 20:37 Order name: CXR XRAY; Complete Time: 21:39 sp3 Administered Medications: 20:52 Drug: Acetaminophen PO 1000 mg Route: PO; mb9 21:41 Follow up: Response: No adverse reaction mb9 21:11 Drug: DuoNeb Nebulize (2.5 mg - 0.5 mg) 3 ml Route: Nebulizer; mb9 21:40 Follow up: Response: No adverse reaction mb9 21:50 Drug: Ketorolac IM 30 mg Route: IM; Site: right deltoid; mb9 21:54 Follow up: Response: No adverse reaction mb9 Disposition Summary: 03/28/23 21:40 Discharge Ordered Location: Home sp3 Condition: Stable sp3 Diagnosis - Acute ethmoidal sinusitis sp3 Discharge Instructions: - Discharge Summary Sheet sp3 - Sinusitis, Adult sp3 Forms: - Medication Reconciliation Form sp3 - Thank You Letter sp3 - Antibiotic Education sp3 - Prescription Opioid Use sp3 - Patient Portal Instructions sp3 Prescriptions: - levofloxacin 500 mg Oral Tablet - take 1 tablet by ORAL route once daily for 7 days; 7 tablet; Refills: 0, sp3 Product Selection Permitted Signatures: Dispatcher [employer] Mike Torres MD MD sp3 Tyler Mendez RN RN as6 Shirley Pelayo RN RN mb9
[2023-03-28] MEDS ORDERED: KETOROLAC 30 MG/ML INJ ONE (21:56)
[2023-03-29 01:28] VITALS: TEMP 99.1
[2023-03-29 01:29] VITALS: BP 154/82; O2SAT 96
== END 2023-03-28 21:55 | disposition home or self-care (01) ==
LOC: ER 19:54
DX: J01.20 Acute ethmoidal sinusitis, unspecified (principal); R06.02 Shortness of breath; E11.9 Type 2 diabetes mellitus without complications; I10 Essential (primary) hypertension; F41.9 Anxiety disorder, unspecified; G89.29 Other chronic pain; Z20.822 Contact with and (suspected) exposure to COVID-19
CPT/HCPCS: 87635; 87804 ×2; 70486; 71045; 94640; 96372; 99285; J7613; J7614

== ENCOUNTER 2023-04-01 14:17 | Inpatient (IN) | payer OTHER ==
--- OUTSIDE RECORDS SUMMARY | 2023-04-01 14:33 | XMS REPORT | Continuity of Care Document ---
:1950 Author Organization [facility] t Address [address] [place] [address] [place] [id number] Care Team Providers Name Role Phone JAIME ROBERTS Primary Care Physician Unavailable Paolo MYA, Jessica Gimenez Attending Clinician [phone] PAOLA BURNETT Attending Clinician Unavailable Doctor Unassigned, [place] Attending Clinician Unavailable FRANCINE VANESSA Attending Clinician Unavailable ABLDOMERO RAO Attending Clinician Unavailable Baldomero Rao MD Attending Clinician Lab, Ang - Db Attending Clinician Unavailable Rosa Isela Ching MD Attending Clinician [phone] Britney Lloyd MD Attending Clinician [phone] BRITNEY LLOYD Attending Clinician Unavailable Eryn MAY, Lili Patel Attending Clinician Heaven Garza MD Attending Clinician Unavailable GLENN PAULSON Attending Clinician Unavailable Glenn Paulson DO Attending Clinician Cherie Faustin MD Attending Clinician Caterina Richardson MD Attending Clinician [phone] Omari Ahuja MD Attending Clinician Denise Quispe MD Attending Clinician Jm Rushing Attending Clinician Nikita MAY, Juan Alberto Gruber Attending Clinician CRISTELA HUTCHINSON Attending Clinician Unavailable Ezequiel DUMONT Tyesha A Attending Clinician Unavailable Paola Burnett MD Attending Clinician Kathy MAY, Allen Rm Attending Clinician [phone] Josef MAY, Graciela Colón Attending Clinician [phone] HOLLIE ACUÑA M.D. Attending Clinician Unavailable PAOLA BURNETT Admitting Clinician Unavailable ELICIA RAPP Admitting Clinician Unavailable GLENN PAULSON Admitting Clinician Unavailable CATERINA RICHARDSON Admitting Clinician Unavailable ROSA ISELA CHING Admitting Clinician Unavailable Payers Payer Name Policy Type Policy Number Effective Date Expiration Date S ource MEDICARE A B [id number] 2021 00:00:00 [place]ICAID [place] [id number] Problems Condition Condition Condition Status Onset Resolution [...] Diabetes Disease [facility] mellitus mellitus [facility] Hypovolemi Hypovolemi Disease Rec[facility]re [facility] c shock c shock [facility] Hypertensi Hypertensi Disease Active C [facility] on [facility] Allergies, Adverse Reactions, Alerts Allergy Allergy Status Severity Reaction(s) Onset Inactive Treating Comm ents Source Name Type Date Date Clinician NO KNOWN Drug Active Univers ALLERGIE Class ity of [facility] NO KNOWN Allergy Active [facility] Family History Family Member Diagnosis Comments Start Date Stop Date Source Father Family history of lung [facility] Social History Social Habit Start Date Stop Date Quantity Comments Source History [facility] Gender identity [facility]it y [facility] Sexual orientation Univer sity [facility] Exposure to 2022-10-11 2022-10-21 Not sure University of SARS-CoV-2 (event) 00:00:00 09:35:00 [facility] History of Social 2022-10-04 2022-10-04 Univers ity of function 00:00:00 00:00:00 [facility] Alcohol intake 2022-04-08 2022-04-08 Ex-drinker [facility] 00:[facility]00 00:00:00 (finding) Medical Center History [facility] 2022-04-07 2022-04-[address] [facility] Unable to 00:00:00 00:00:00 Medical Center Pay History [facility] 2022-04-07 2022-04-[address] [facility] Places 00:00:00 00:00:00 Medical Ce nter Lived History [facility] 2022-04-07 2022-04-[address] [facility] Homeless 00:00:00 00:00:00 Medical Center Last Year History [facility] 2022-04-07 2022-04-[address] [facility] Transport Med 00:00:00 00:00:[address] Tobacco use and 2016-03-18 2016-03-18 Smokeless Universit y of exposure 00:00:00 00:00:00 tobacco non-user [facility] Sex [birth year] At [birth year] EDWARD Rosales 00:00:00 00:00:00 Medical Center Smoking Status Start Date Stop Date Source Never smoked tobacco [facility] Medications Ordered Filled Start Stop Current Ordering Indication Dosage Frequency Signature Comments Components Source Medication Medication Date Date Medication? Clinician (SIG) Name Name methylPREDN 2023-0 Yes [id number] 84mg Take 21 Univers ISolone 2-09 4102 tablets by ity of (MEDROL, 00:00: mouth [place] PB,) 4 mg 00 SEE-INSTRU Med ical tablets CTIONS. Branch follow package directions methylPREDN 2023-0 Yes [id number] 84mg Take 21 Univers ISolone 2-09 4102 tablets by ity of (MEDROL, 00:00: mouth [place] PB,) 4 mg 00 SEE-INSTRU Med ical tablets CTIONS. Branch follow package directions methylPREDN 3-0 Yes [id number] 84mg Take 21 Univers ISolone 2-09 4102 tablets by ity of (MEDROL, 00:00: mouth [place] PB,) 4 mg 00 SEE-INSTRU Med ical tablets CTIONS. Branch follow package directions methylPREDN 3-0 Yes [id number] 84mg Take 21 Univers ISolone 2-09 4102 tablets by ity of (MEDROL, 00:00: mouth [place] PB,) 4 mg 00 SEE-INSTRU Med ical tablets CTIONS. Branch follow package directions loratadine 2023-0 Yes 10mg Take 10 mg U nivers 10 mg 1-15 by mouth ity of tablet 00:00: in the [place] [address] morning. Medical Branch loratadine 2023-0 Yes 10mg Take 10 mg U nivers 10 mg 1-15 by mouth ity of tablet 00:00: in the [place] [address] morning. Medical Branch loratadine 2023-0 Yes 10mg Take 10 mg U nivers 10 mg 1-15 by mouth ity of tablet 00:00: in the [place] [address] morning. Medical Branch loratadine 2023-0 Yes 10mg Take 10 mg U nivers 10 mg 1-15 by mouth ity of tablet 00:00: in the [place] [address] morning. Medical Branch loratadine 2023-0 Yes 10mg Take 10 mg U nivers 10 mg 1-15 by mouth ity of tablet 00:00: in the [place] morning. Medical Branch loratadine 2023-0 Yes 10mg Take 10 mg U nivers 10 mg 1-15 by mouth ity of tablet 00:00: in the [place] morning. Medical Branch loratadine 2023-0 Yes 10mg Take 10 mg U nivers 10 mg 1-15 by mouth ity of tablet 00:00: in the [place] morning. Medical Branch loratadine 2023-0 Yes 10mg Take 10 mg U nivers 10 mg 1-15 by mouth ity of tablet 00:00: in the [place] morning. Medical Branch loratadine 2023-0 Yes 10mg Take 10 mg U nivers 10 mg 1-15 by mouth ity of tablet 00:00: in the [place] morning. Medical Branch loratadine 2023-0 Yes 10mg Take 10 mg U nivers 10 mg 1-15 by mouth ity of tablet 00:00: in the [place] morning. Medical Branch HYDROcodone 2022-0 Yes 1{tbl} [...] by mouth ity of 00:00: in the [place] morning Medical and 5 mg Branch in the evening. risperiDONE 2023-0 Yes .5mg Take 0.5 [place] 0.5 mg 1-05 mg by ity of tablet 00:00: mouth in [place] 00 the Medical morning Branch and 0.5 mg in the evening. memantine 5 2023-0 Yes 5mg Take 5 mg U nivers mg tablet 1-05 by mouth ity of 00:00: in the [place] morning Medical and 5 mg Branch in the evening. risperiDONE 2023-0 Yes .5mg Take 0.5 Un [place] 0.5 mg 1-05 mg by ity of tablet 00:00: mouth in [place] 00 the Medical morning Branch and 0.5 mg in the evening. memantine 5 2023-0 Yes 5mg Take 5 mg U nivers mg tablet 1-05 by mouth ity of 00:00: in the [place] morning Medical and 5 mg Branch in the evening. risperiDONE 2023-0 Yes .5mg Take 0.5 Un [place] 0.5 mg 1-05 mg by ity of tablet 00:00: mouth in [place] 00 the Medical morning Branch and 0.5 mg in the evening. memantine 5 2023-0 Yes 5mg Take 5 mg U nivers mg tablet 1-05 by mouth ity of 00:00: in the [place] morning Medical and 5 mg Branch in the evening. risperiDONE 2023-0 Yes .5mg Take 0.5 Un [place] 0.5 mg 1-05 mg by ity of tablet 00:00: mouth in [place] [address] the Medical morning Branch and 0.5 mg in the evening. memantine 5 2023-0 Yes 5mg Take 5 mg U nivers mg tablet 1-05 by mouth ity of 00:00: in the [place] morning Medical and 5 mg Branch in the evening. risperiDONE 2023-0 Yes .5mg Take 0.5 Un [place] 0.5 mg 1-05 mg by ity of tablet 00:00: mouth in [place] [address] the Medical morning Branch and 0.5 mg in the evening. memantine 5 2023-0 Yes 5mg Take 5 mg U nivers mg tablet 1-05 by mouth ity of 00:00: in the [place] morning Medical and 5 mg Branch in the evening. risperiDONE 2023-0 Yes .5mg Take 0.5 [place] 0.5 mg 1-05 mg by ity of tablet 00:00: mouth in [place] [address] the Medical morning Branch and 0.5 mg in the evening. memantine 5 2023-0 Yes 5mg Take 5 mg U nivers mg tablet 1-05 by mouth ity of 00:00: in the [place] [address] morning Medical and 5 mg Branch in the evening. risperiDONE 2023-0 Yes .5mg Take 0.5 Un [place] 0.5 mg 1-05 mg by ity of tablet 00:00: mouth in [place] 00 the Medical morning Branch and 0.5 mg in the evening. memantine 5 3-0 Yes 5mg Take 5 mg U nivers mg tablet 1-05 by mouth ity of 00:00: in the [place] 00 morning Medical and 5 mg Branch in the evening. risperiDONE 3-0 Yes .5mg Take 0.5 Un [place] 0.5 mg 1-05 mg by ity of tablet 00:00: mouth in [place] 00 the Medical morning Branch and 0.5 mg in the evening. memantine 5 3-0 Yes 5mg Take 5 mg U nivers mg tablet 1-05 by mouth ity of 00:00: in the [place] 00 morning Medical and 5 mg Branch in the evening. risperiDONE 3-0 Yes .5mg Take 0.5 Un [place] 0.5 mg 1-05 mg by ity of tablet 00:00: mouth in [place] [address] the Medical morning Branch and 0.5 mg in the evening. memantine 5 2022-0 Yes 5mg Take 5 mg U nivers mg tablet 1-05 by mouth ity of 00:00: in the [place] morning Medical and 5 mg Branch in the evening. risperiDONE 3-0 Yes .5mg Take 0.5 Un [place] 0.5 mg 1-05 mg by ity of tablet 00:00: mouth in [place] [address] the Medical morning Branch and 0.5 mg in the evening. cyanocobala 2021-09 Yes INJECT 1 Un [place] min 1,000 2-27 ML ity of mcg/mL 00:00: INTRAMUSCU [place] injection 00 LARLY Medical EVERY Branch MONTH promethazin 2021-09 Yes GIVE 5 ML U nivers e-dextromet 2-27 BY MOUTH ity of horphan 00:00: EVERY 6 [place] 6.25-15 00 HOURS Medical mg/5 mL NEEDED FOR Branch syrup COUGH cyanocobala 2021-09 Yes INJECT 1 Un [place] min 1,000 2-27 ML ity of mcg/mL 00:00: INTRAMUSCU [place] injection 00 LARLY Medical EVERY Branch MONTH promethazin 2021-09 Yes GIVE 5 ML U nivers e-dextromet 2-27 BY MOUTH ity of horphan 00:00: EVERY 6 [place] 6.25-15 00 HOURS Medical mg/5 mL NEEDED FOR Branch syrup COUGH cyanocobala 2021-09 Yes INJECT 1 Un [place] min 1,000 2-27 ML ity of mcg/mL 00:00: INTRAMUSCU [place] injection 00 LARLY Medical EVERY Branch MONTH promethazin 2021-09 Yes GIVE 5 ML U nivers e-dextromet 2-27 BY MOUTH ity of horphan 00:00: EVERY 6 [place] 6.25-15 00 HOURS Medical mg/5 mL NEEDED FOR Branch syrup COUGH cyanocobala 2021-09 Yes INJECT 1 Un [place] min 1,000 2-27 ML ity of mcg/mL 00:00: INTRAMUSCU [place] injection 00 LARLY Medical EVERY Branch MONTH promethazin 2021-09 Yes GIVE 5 ML U nivers e-dextromet 2-27 BY MOUTH ity of horphan 00:00: EVERY 6 [place] 6.25-15 00 HOURS Medical mg/5 mL NEEDED FOR Branch syrup COUGH cyanocobala 2021-09 Yes INJECT 1 Un [place] min 1,000 2-27 ML ity of mcg/mL 00:00: INTRAMUSCU [place] injection 00 LARLY Medical EVERY Branch MONTH promethazin 2021-09 Yes GIVE 5 ML U nivers e-dextromet 2-27 BY MOUTH ity of horphan 00:00: EVERY 6 [place] 6.25-15 00 HOURS Medical mg/5 mL NEEDED FOR Branch syrup COUGH cyanocobala 2021-09 Yes INJECT 1 Un [place] min 1,000 2-27 ML ity of mcg/mL 00:00: INTRAMUSCU [place] injection 00 LARLY Medical EVERY Branch MONTH promethazin 2021-09 Yes GIVE 5 ML U nivers e-dextromet 2-27 BY MOUTH ity of horphan 00:00: EVERY 6 [place] 6.25-15 00 HOURS Medical mg/5 mL NEEDED FOR Branch syrup COUGH cyanocobala 2021-09 Yes INJECT 1 Un [place] min 1,000 2-27 ML ity of mcg/mL 00:00: INTRAMUSCU [place] injection 00 LARLY Medical EVERY Branch MONTH promethazin 2021-09 Yes GIVE 5 ML U nivers e-dextromet 2-27 BY MOUTH ity of horphan 00:00: EVERY 6 [place] 6.25-15 00 HOURS Medical mg/5 mL NEEDED FOR Branch syrup COUGH cyanocobala 2021-09 Yes INJECT 1 Un [place] min 1,000 2-27 ML ity of mcg/mL 00:00: INTRAMUSCU [place] injection 00 LARLY Medical EVERY Branch MONTH promethazin 2021-09 Yes GIVE 5 ML U nivers e-dextromet 2-27 BY MOUTH ity of horphan 00:00: EVERY 6 [place] 6.25-15 00 HOURS Medical mg/5 mL NEEDED FOR Branch syrup COUGH cyanocobala 2021-09 Yes INJECT 1 [place] min 1,000 2-27 ML ity of mcg/mL 00:00: INTRAMUSCU [place] injection 00 LARLY Medical EVERY Branch MONTH promethazin 2021-09 Yes GIVE 5 ML U nivers e-dextromet 2-27 BY MOUTH ity of horphan 00:00: EVERY 6 [place] 6.25-15 00 HOURS Medical mg/5 mL NEEDED FOR Branch syrup COUGH cyanocobala 2021-09 Yes INJECT 1 Un [place] min 1,000 2-27 ML ity of mcg/mL 00:00: INTRAMUSCU [place] injection 00 LARLY Medical EVERY Branch MONTH promethazin 2021-09 Yes GIVE 5 ML U nivers e-dextromet 2-27 BY MOUTH ity of horphan 00:00: EVERY 6 [place] 6.25-15 00 HOURS Medical mg/5 mL NEEDED FOR Branch syrup COUGH citalopram 2021-09 Yes 20mg Take 20 mg U nivers 20 mg 2-24 by mouth ity of tablet 00:00: every [place] 00 morning. Medical Branch citalopram 2021-09 Yes 20mg Take 20 mg U nivers 20 mg 2-24 by mouth ity of tablet 00:00: every [place] 00 morning. Medical Branch citalopram 2021-09 Yes 20mg Take 20 mg U nivers 20 mg 2-24 by mouth ity of tablet 00:00: every [place] 00 morning. Medical Branch citalopram 2021-09 Yes 20mg Take 20 mg U nivers 20 mg 2-24 by mouth ity of tablet 00:00: every [place] 00 morning. Medical Branch citalopram 2021-09 Yes 20mg Take 20 mg U nivers 20 mg 2-24 by mouth ity of tablet 00:00: every [place] 00 morning. Medical Branch citalopram 2021-09 Yes 20mg Take 20 mg U nivers 20 mg 2-24 by mouth ity of tablet 00:00: every [place] 00 morning. Medical Branch citalopram 2021- Yes 20mg Take 20 mg U nivers 20 mg 2-24 by mouth ity of tablet 00:00: every [place] morning. Medical Branch citalopram 2021- Yes 20mg Take 20 mg U nivers 20 mg 2-24 by mouth ity of tablet 00:00: every [place] morning. Medical Branch citalopram 2021- Yes 20mg Take 20 mg U nivers 20 mg 2-24 by mouth ity of tablet 00:00: every [place] morning. Medical Branch citalopram 2021- Yes 20mg Take 20 mg U nivers 20 mg 2-24 by mouth ity of tablet 00:00: every [place] morning. Medical Branch alendronate 2021- Yes 70mg Take 70 mg Univers 70 mg 1-09 by mouth ity of tablet 00:00: weekly. [place] [address] Medical Branch alendronate 2021- Yes 70mg Take 70 mg Univers 70 mg 1-09 by mouth ity of tablet 00:00: weekly. [place] [address] Medical Branch alendronate 2021- Yes 70mg Take 70 mg Univers 70 mg 1-09 by mouth ity of tablet 00:00: weekly. [place] [address] Medical Branch alendronate 2021- Yes 70mg Take 70 mg Univers 70 mg 1-09 by mouth ity of tablet 00:00: weekly. [place] [address] Medical Branch alendronate 2021- Yes 70mg Take 70 mg Univers 70 mg 1-09 by mouth ity of tablet 00:00: weekly. [place] Medical Branch alendronate 2021- Yes 70mg Take 70 mg Univers 70 mg 1-09 by mouth ity of tablet 00:00: weekly. [place] Medical Branch alendronate 2021- Yes 70mg Take 70 mg Univers 70 mg 1-09 by mouth ity of tablet 00:00: weekly. [place] [address] Medical Branch alendronate 2021- Yes 70mg Take 70 mg Univers 70 mg 1-09 by mouth ity of tablet 00:00: weekly. [place] [address] Medical Branch alendronate 2021- Yes 70mg Take 70 mg Univers 70 mg 1-09 by mouth ity of tablet 00:00: weekly. [place] [address] Medical Branch alendronate 2021-09 Yes 70mg Take 70 mg Univers 70 mg 1-09 by mouth ity of tablet 00:00: weekly. [address] Branch lactulose 2021-09 Yes Univers 10 gram/15 1-02 ity of mL solution 00:00: [place] Medical Branch tiZANidine 2021-09 Yes Univers 4 mg tablet -02 ity of 00:00: [place] Medical Branch lactulose 2021-09 Yes Univers 10 gram/15 -02 ity of mL solution 00:00: [place] [address] Medical Branch tiZANidine 2021-09 Yes Univers 4 mg tablet -02 ity of 00:00: [place] [address] Medical Branch lactulose 2021-09 Yes Univers 10 gram/15 -02 ity of mL solution 00:00: [place] [address] Medical Branch tiZANidine 2021-09 Yes Univers 4 mg tablet 02 ity of 00:00: [place] [address] Medical [employer] lactulose 2021-09 Yes Univers 10 gram/15 -02 ity of mL solution 00:00: [place] [address] Medical Branch tiZANidine 2021-09 Yes Univers 4 mg tablet -02 ity of 00:00: [place] [address] Medical Branch lactulose 2021-09 Yes Univers 10 gram/15 -02 ity of mL solution 00:00: [place] [address] Medical Branch tiZANidine 2021-09 Yes Univers 4 mg tablet -02 ity of 00:00: [place] [address] Medical Branch lactulose 2021-09 Yes Univers 10 gram/15 -02 ity of mL solution 00:00: [place] [address] Medical Branch tiZANidine 2021-09 Yes Univers 4 mg tablet -02 ity of 00:00: [place] [address] Medical Branch lactulose 2021-09 Yes Univers 10 gram/15 -02 ity of mL solution 00:00: [place] [address] Medical Branch tiZANidine 2021-09 Yes Univers 4 mg tablet -02 ity of 00:00: [place] [address] Medical Branch lactulose 2021-09 Yes Univers 10 gram/15 -02 ity of mL solution 00:00: [place] [address] Medical Branch tiZANidine 2021-09 Yes Univers 4 mg tablet -02 ity of 00:00: [place] [address] Medical Branch lactulose 2021-09 Yes Univers 10 [...] St (PEPCID) 20 8-02 by mouth 2 Jasymn kes MG tablet 20:18: (two) Medical 17 [...] next 30 min. . HYDROcodone Yes 1{tbl} Q.51391471 Take [address] [facility] -acetaminop 04-13 [id number] tablet [facility] (NORCO 20:18: 3D [...] MCG 20:18: mouth Medical capsule 17 daily. [place] alendronate Yes 70mg Take [address] [facility] (FOSAMAX) 02 by mouth [facility]ukes 70 MG 20:18: every 7 Medical tablet 17 days Take Center in the morning with a full glass of water, on an empty stomach, and do not take anything else by mouth or lie down for the next 30 min. . HYDROcodone Yes 1{tbl} Q.[id number] Take [address] [facility] -acetaminop 04-13 [id number] tablet by [facility] (NORCO 20:18: 3D mouth 3 Medi josephine 5-325) 17 (three) Center 5-325 mg times per tablet daily. ursodioL Yes 500mg QD Take [address] (ACTIGALL) 8-02 mg by [facility] 500 MG 20:18: mouth Medical tablet 17 daily. [place] ALPRAZolam Yes 2mg Take 2 mg CH [...] MG 20:18: mouth Medical tablet 17 nightly. [place] traMADoL Yes 50mg Take 50 mg [facility]I [...] mouth Medical D3) 25 mcg 17 daily. [place] (1,000 unit) tablet lisinopriL Yes 10mg QD [...] MCG 20:18: mouth Medical capsule 17 daily. [place] alendronate Yes 70mg Take [address] (FOSAMAX) 8-02 by mouth [facility] 70 MG 20:18: every 7 Medical tablet 17 days Take Center in the morning with a full glass of water, on an empty stomach, and do not take anything else by mouth or lie down for the next 30 min. . HYDROcodone 0 Yes 1{tbl} Q.62699782 Take [address] [address] -acetaminop 8- [id number] tablet by [facility] (NORCO 20:18: 3D [...] next 30 min. . HYDROcodone Yes 1{tbl} Q.59103832 Take [address] -acetaminop 04-13 [id number] tablet by [facility] (NORCO 20:18: 3D mouth 3 Medi josephine 5-325) 17 (three) Center 5-325 mg times per tablet daily. ursodioL Yes 500mg QD Take [address] (ACTIGALL) 8-02 mg by [facility] 500 MG 20:18: mouth Medical tablet 17 daily. [place] ALPRAZolam Yes 2mg Take 2 mg CH [...] MCG 20:18: mouth Medical capsule 17 daily. [place] alendronate Yes 70mg Take [address] (FOSAMAX) -02 by mouth [facility] 70 MG 20:18: every 7 Medical tablet 17 days Take Center in the morning with a full glass of water, on an empty stomach, and do not take anything else by mouth or lie down for the next 30 min. . HYDROcodone Yes 1{tbl} Q.[id number] Take [address] [facility] [address] -acetaminop 04-13 [id number] tablet by [facility] (NORCO 20:18: 3D mouth 3 Medi josephine 5-325) 17 (three) Center 5-325 mg times per tablet daily. ursodioL 0 Yes 500mg QD Take [address] (ACTIGALL) 8-02 mg by [facility] 500 MG 20:18: mouth Medical tablet 17 daily. [place] ALPRAZolam Yes 2mg Take 2 mg CH [...] 30 min. . HYDROcodone 0 Yes 1{tbl} Q.[id number] Take [address] -acetaminop 04-13 [id number] tablet by [facility] (NORCO 20:18: 3D [...] mouth Medical tablet 17 nightly. Center traMADoL 0 Yes 50mg Take 50 mg [...] MCG 20:18: mouth Medical capsule 17 daily. [place] alendronate Yes 70mg Take [address] [address] (FOSAMAX) 8-02 by mouth [facility] 70 MG 20:18: every 7 Medical tablet 17 days Take Center in the morning with a full glass of water, on an empty stomach, and do not take anything else by mouth or lie down for the next 30 min. . HYDROcodone Yes 1{tbl} Q.58164080 Take [address] [address] -acetaminop 04-13 [id number] tablet by [facility] (NORCO 20:18: 3D mouth 3 Medi josephine 5-325) 17 (three) [place] 5-325 mg times per tablet daily. ursodioL Yes 500mg QD Take [address] (ACTIGALL) 8-02 mg by [facility] 500 MG 20:18: mouth Medical tablet 17 daily. Center amLODIPine 2022- No 5mg QD Take [address] [facility] [address] (NORVASC) 5 - 08- tablet (5 Jasmyn kes MG tablet 00:00: 23:59 mg total) Me dical 00 :00 by mouth Center daily. amLODIPine 2021-0 2022- No 5mg QD Take [address] [facility] (NORVASC) 5 8- 08-02 tablet (5 Jasmyn kes MG tablet 00:00: 23:59 mg total) Me dical 00 :00 by mouth Center daily. amLODIPine 2021-0 2022- No 5mg QD Take [address] (NORVASC) 5 8- 08-02 tablet (5 Jsamyn kes MG tablet 00:00: 23:59 mg total) [...] Take [address] [facility] (NORVASC) 5 8- 08- tablet (5 Jasmyn kes MG tablet 00:00: 23:59 mg total) Me dical 00 :00 by mouth Center daily. amLODIPine 2022- No 5mg QD Take [address] (NORVASC) 5 8- tablet (5 Jasmyn kes MG tablet 00:00: 23:59 mg total) Me dical 00 :00 by mouth Center daily. iopamidol 2020-09- No [id number] 100mL 100 mL, Univers (ISOVUE 09-23 Intravenou ity o f 370-500 mL) 17:55: 17:55 s, ONCE, 1 [place] injection 00 :00 dose, On Medica l 100 mL Tue07/24/21 at 1215, Routine ondansetron 2020-09 No 4mg 4 mg, Slow Univers (ZOFRAN 09-23 IV Push, ity of (PF)) 17:45: 16:38 ONCE, 1 [place] injection 4 00 :00 dose, On Medi josephine mg Tue07/24/21 at 1145, Routine morpHINE 2020-09 Yes 4mg 4 mg, Slow Uni vers injection 4 09-23 IV Push, ity of mg 16:30: Q4HPRN, [place] 24 Starting Medical on Tue07/24/21 at 1030, Until Discontinu ed, Routine, Pain (scale 7-10) ALPRAZolam Yes 2mg Take [address] (XANAX) 2 - by mouth [facility] MG tablet 10:59: every [...] next 30 min. . HYDROcodone Yes 1{tbl} Q.[id number] Take [address] [facility] [address] -acetaminop 8-26 [id number] tablet by [facility] (NORCO 10:59: 3D [...] next 30 min. . HYDROcodone Yes 1{tbl} Q.[id number] Take [address] [facility] -acetaminop 8-26 [id number] tablet by [facility] (NORCO 10:59: 3D mouth 3 Medi josephine 5-325) 53 (three) Center 5-325 mg times per tablet daily. ursodioL Yes 500mg QD Take [address] (ACTIGALL) 8-26 mg by [facility] 500 MG 10:59: mouth Medical tablet 53 daily. [place] ALPRAZolam Yes 2mg Take 2 mg CH [...] MG 10:59: mouth Medical tablet 53 nightly. [place] traMADoL Yes 50mg Take 50 mg CHI [...] MCG 10:59: mouth Medical capsule 53 daily. [place] alendronate Yes 70mg Take [address] [facility] (FOSAMAX) 8-26 by mouth [facility] 70 MG 10:59: every 7 Medical tablet 53 days Take Center in the morning with a full glass of water, on an empty stomach, and do not take anything else by mouth or lie down for the next 30 min. . HYDROcodone Yes 1{tbl} Q.[id number] Take [address] [facility] -acetaminop 8-26 [id number] tablet by [facility] (NORCO 10:59: 3D [...] MCG 09:40: mouth Medical capsule 47 daily. [place] alendronate Yes 70mg Take [address] [facility] (FOSAMAX) 8-26 by mouth [facility] 70 MG 09:40: every 7 Medical tablet 47 days Take Center in the morning with a full glass of water, on an empty stomach, and do not take anything else by mouth or lie down for the next 30 min. . HYDROcodone Yes 1{tbl} Q.[id number] Take [address] -acetaminop 8-26 [id number] tablet by [facility] (NORCO 09:40: 3D mouth 3 Medi josephine 5-325) 47 (three) Center 5-325 mg times per tablet daily. ursodioL Yes 500mg QD Take [address] (ACTIGALL) 8-26 mg by [facility] 500 MG 09:40: mouth Medical tablet 47 daily. [place] meclizine Yes [facility] (ANTIVERT) 6-21 [facility] 25 mg 00:00: Medical tablet 00 [place] meclizine Yes [facility] (ANTIVERT) 6-21 [facility] 25 [facility] 00:00: [facility] 25 mg 00:00: Medical tablet 00 [place] meclizine Yes [facility] (ANTIVERT) 6-21 [facility] 25 mg 00:00: Medical tablet 00 [place] meclizine Yes [facility] (ANTIVERT) 6-21 [facility] 25 mg 00:00: Medical tablet 00 [place] meclizine Yes [facility] (ANTIVERT) 6-21 [facility] 25 mg 00:00: Medical tablet 00 [place] meclizine Yes [facility] (ANTIVERT) 6-21 [facility] 25 mg 00:00: Medical tablet 00 [place] meclizine Yes [facility] (ANTIVERT) 6-21 [facility] 25 mg 00:00: Medical tablet 00 [facility] [address] [facility] 25 [facility] 00:00: Medical tablet 00 [facility] [address] [facility] 25 mg 00:00: Medical tablet 00 [facility]iz[address] [facility] 25 mg 00:00: Medical tablet 00 [facility] Nortriptyli Nortriptyli Yes HOLLIE TAKE 1 UT ne HCl - 25 ne HCl - 25 5-30 DOMENICO M.[place]. CAPSULE AT [facility] MG Oral MG Oral [...] UT ISolone 4 ISolone 4 5-23 DOMENICO M.[place] dose pb [facility] MG Oral MG Oral 00:00: (24 mg ans Tablet Tablet 00 with Therapy Therapy tapering Pack Pack dose to 4 mg over 6 days) MDD:24mg morphine 2016-0 Yes 30mg Take 30 mg [...] 08:12: daily. [place] capsule 18 [facility] Branch amitriptyli 2016-0 Yes 10mg Take 10 mg Univers ne (ELAVIL) 7-07 by mouth ity of 10 mg 08:12: at [place] tablet 18 bedtime. Medical Branch ALPRAZolam 2016-0 Yes 2mg Take [...] of mg 24 hr 08:12: daily. [place] [facility] 18 [facility] Branch ALPRAZolam 2015-0 Yes 2mg Take 2 mg Un ednver (XANAX) 2 7-07 by mouth ity of [...] 0 Yes 2mg Take 2 mg Un denvre (XANAX) 2 7-07 by mouth ity of [...] TK 1 AND Unive rs I.R. (MSIR) 6 1/2 TS PO ity of 30 mg 00:00: BID. [place] tablet Medical Branch morpHINE 2015-0 Yes TK 1 AND Unive rs I.R. (MSIR) 6- 1/2 TS PO ity of 30 mg 00:00: BID. [place] tablet Medical Branch Lisinopril, Yes Univer s Bulk, [...] [place] tablet 00 EVERY 8 Medical HOURS [employer] gabapentin 2016-0 Yes TAKE 1 Unive rs (NEURONTIN) 5-20 TABLET BY ity of 600 mg 00:00: MOUTH [place] tablet 00 EVERY 8 Medical HOURS [employer] ciprofloxac 2014-09 Yes 500mg Take 1 Tab Univers in HCl 1-30 by mouth 2 ity of (CIPRO) 500 00:00: (two) [place] mg tablet 00 times Medical daily. [employer] ciprofloxac 2014-09 Yes 500mg Take 1 Tab Univers in HCl 1-30 by mouth 2 ity of (CIPRO) 500 00:00: (two) [place] mg tablet 00 times Medical daily. [employer] ciprofloxac 2014-09 Yes 500mg Take 1 Tab Univers in HCl 1-30 by mouth 2 ity of (CIPRO) 500 00:00: (two) [place] mg tablet 00 times Medical daily. [employer] ciprofloxac 2014-09 Yes 500mg Take 1 Tab Univers in HCl 1-30 by mouth 2 ity of (CIPRO) 500 00:00: (two) [place] mg tablet 00 times Medical daily. [employer] ciprofloxac 2014-09 Yes 500mg Take 1 Tab Univers in HCl 1-30 by mouth 2 ity of (CIPRO) 500 00:00: (two) [place] mg tablet 00 times Medical daily. [employer] ciprofloxac 2014-09 Yes 500mg Take 1 Tab Univers in HCl 1-30 by mouth 2 ity of (CIPRO) 500 00:00: (two) [place] mg tablet 00 times Medical daily. [employer] ciprofloxac 2014-09 Yes 500mg Take 1 Tab Univers in HCl 1-30 by mouth 2 ity of (CIPRO) 500 00:00: (two) [place] mg tablet 00 times Medical daily. [employer] ciprofloxac 2014-09 Yes 500mg Take 1 Tab Univers in HCl 1-30 by mouth 2 ity of (CIPRO) 500 00:00: (two) [place] mg tablet 00 times Medical daily. [employer] ciprofloxac 2014-09 Yes 500mg Take 1 Tab Univers in HCl 1-30 by mouth 2 ity of (CIPRO) 500 00:00: (two) [place] mg tablet 00 times Medical daily. [employer] ciprofloxac 2014-09 Yes 500mg Take 1 Tab [...] Immunizations Ordered Filled Immunization Date Status Comments [facility] e Immunization Name Name SARS-COV-2 COVID-19 2020-11-11 Completed Unive rsity of PFIZER VACCINE 00:00:00 [facility] SARS-COV-2 COVID-19 2020-11-11 Completed Unive rsity of PFIZER VACCINE 00:00:00 [facility] SARS-COV-2 COVID-19 2020-11-11 Completed Unive rsity of PFIZER VACCINE 00:00:00 [facility] SARS-COV-2 COVID-19 2020-11-11 Completed Unive rsity of PFIZER VACCINE 00:00:00 [facility] SARS-COV-2 COVID-19 2020-11-11 Completed Unive rsity of PFIZER VACCINE 00:00:00 [facility] SARS-COV-2 COVID-19 2020-11-11 Completed Unive rsity of PFIZER VACCINE 00:00:00 [facility] SARS-COV-2 COVID-19 2020-11-11 Completed Unive rsity of PFIZER VACCINE 00:00:00 [facility] SARS-COV-2 COVID-19 2020-11-11 Completed Unive rsity of PFIZER VACCINE 00:00:00 [facility] SARS-COV-2 COVID-19 2020-11-11 Completed Unive rsity of PFIZER VACCINE 00:00:00 [facility] SARS-COV-2 COVID-19 2020-11-11 Completed Unive rsity of PFIZER VACCINE 00:00:00 [facility] SARS-COV-2 COVID-19 2020-11-11 Completed Unive rsity of PFIZER VACCINE 00:00:00 [facility] SARS-COV-2 COVID-19 2020-11-11 Completed Unive rsity of PFIZER VACCINE 00:00:00 [facility] SARS-COV-2 COVID-19 2020-11-11 Completed Unive rsity of PFIZER VACCINE 00:00:00 [facility] SARS-COV-2 COVID-19 2020-11-11 Completed Unive rsity of PFIZER VACCINE 00:00:00 [facility] SARS-COV-2 COVID-19 2020-10-21 Completed Unive rsity of PFIZER VACCINE 00:00:00 [facility] SARS-COV-2 COVID-19 2020-10-21 Completed Unive rsity of PFIZER VACCINE 00:00:00 [facility] SARS-COV-2 COVID-19 2020-10-21 Completed Unive rsity of PFIZER VACCINE 00:00:00 [facility] SARS-COV-2 COVID-19 2020-10-21 Completed Unive rsity of PFIZER VACCINE 00:00:00 [facility] SARS-COV-2 COVID-19 2020-10-21 Completed Unive rsity of PFIZER VACCINE 00:00:00 [facility] SARS-COV-2 COVID-19 2020-10-21 Completed Unive rsity of PFIZER VACCINE 00:00:00 [facility] SARS-COV-2 COVID-19 2020-10-21 Completed Unive rsity of PFIZER VACCINE 00:00:00 [facility] SARS-COV-2 COVID-19 2020-10-21 Completed Unive rsity of PFIZER VACCINE 00:00:00 [facility] SARS-COV-2 COVID-19 2020-10-21 Completed Unive rsity of PFIZER VACCINE 00:00:00 [facility] SARS-COV-2 COVID-19 2020-10-21 Completed Unive rsity of PFIZER VACCINE 00:00:00 [facility] SARS-COV-2 COVID-19 2020-10-21 Completed Unive rsity of PFIZER VACCINE 00:00:00 [facility] SARS-COV-2 COVID-19 2020-10-21 Completed Unive rsity of PFIZER VACCINE 00:00:00 [facility] SARS-COV-2 COVID-19 2020-10-21 Completed Unive rsity of PFIZER VACCINE 00:00:00 [facility] SARS-COV-2 COVID-19 2020-10-21 Completed Unive rsity of PFIZER VACCINE 00:00:00 [facility] Vital Signs Vital Name Observation Time Observation Value Comments Source WEIGHT 2021-03-10 62.596 kg 11:08:00 Body height 2022-10-21 149.9 cm [facility] 15:35:00 [facility] Body weight 2022-10-21 62.596 kg University of 15:35:00 [facility] BMI 2022-10-21 27.87 kg/m2 University of 15:35:00 [facility] Body height 2022-10-04 149.9 cm University of 20:30:00 [facility] Body weight 2022-10-04 62.596 kg University of 20:30:00 [facility] BMI 2022-10-04 27.87 kg/m2 University of 20:30:00 [facility] WEIGHT 2022-04-11 62.8 kg 19:25:00 WEIGHT 2022-04-09 62.795 kg 11:00:00 WEIGHT 2022-04-11 62.8 kg 19:25:00 WEIGHT 2022-04-09 62.795 kg 11:00:00 WEIGHT 2022-04-11 62.8 kg 19:25:00 WEIGHT 2022-04-09 62.795 kg 11:00:00 Systolic blood 2021-07-24 144 mm[Hg] University of pressure 19:28:00 [facility] Diastolic blood 2021-07-24 90 mm[Hg] University o f pressure 19:28:00 [facility] Heart rate 2021-07-24 87 /min University 19:28:00 [facility] Respiratory rate 2021-07-24 18 /min [facility] 19:28:00 [facility] Oxygen saturation 2021-07-24 97 /min [facility] in Arterial blood 19:28:00 [facility] by Pulse oximetry [employer] Body temperature 2021-07-24 37 Carolann [facility] 16:20:00 [facility] Body weight 2021-07-24 61.236 kg University 16:20:00 [facility] BMI 2021-07-24 25.51 kg/m2 University 16:20:00 [facility] HEIGHT 2021-05-04 152.4 cm 17:29:00 WEIGHT 2021-05-04 61.689 kg 17:29:00 HEIGHT 2021-05-04 152.4 cm 17:29:00 WEIGHT 2021-05-04 61.689 kg 17:29:00 WEIGHT 2021-03-10 62.596 kg 11:08:00 Systolic blood 2022-04-13 132 mm[Hg] [facility] pressure 15:18:[address] [facility] Diastolic blood 2022-04-13 85 mm[Hg] [facility] pressure 15:18:[address] [facility] Heart rate 2022-04-13 83 /min [facility] 15:18:[address] [facility] Body temperature 2022-04-[address] [facility] 15:18:00 [facility] Respiratory rate 2022-04-13 18 /min [facility] 15:18:00 [facility] Oxygen saturation 2022-04-13 98 /min [facility] in Arterial blood 15:18:00 Medical Ce nter by Pulse oximetry Body weight 2022-04-[address] [facility] 19:25:[address] [facility] BMI 2022-04-11 27.04 kg/m2 [facility] 19:25:[address] [facility] Systolic blood 2021-05-07 156 mm[Hg] [facility] pressure 08:00:00 [facility] Diastolic blood 2021-05-07 74 mm[Hg] [facility] pressure 08:00:00 [facility] Heart rate 2021-05-07 76 /min [facility] 08:00:[address] [facility] Body temperature 2021-05-[address] [facility] 08:00:[address] [facility] Respiratory rate 2021-05-07 17 /min [facility] 08:00:00 [facility] Oxygen saturation 2021-05-07 97 /min [facility] in Arterial blood 08:00:00 Medical Ce nter by Pulse oximetry Body height 2021-05-04 152.4 cm [facility] 17:29:[address] [facility] Body weight 2021-05-04 61.689 kg [facility] 17:29:[address] [facility] BMI 2021-05-04 26.56 kg/m2 [facility] 17:29:[address] [facility] BP Diastolic 2018-02-01 78 mm[Hg] Location: RUE; [facility] 08:36:00 Position: Sitting Height 2018-02-01 60 [in_us] [facility] 08:36:00 Weight 2018-02-01 117 [lb_av] [facility] 08:36:00 Body Mass Index 2018-02-01 22.85 kg/m2 [facility] Calculated 08:36:00 Heart Rate 2018-02-01 73 /min Location: R [facility] 08:36:00 Brachial Artery; BP Systolic 2018-02-01 131 mm[Hg] Location: RUE; [facility] 08:36:00 Position: Sitting Procedures Procedure Date / Time Performing Clinician Source Performed MEDICAL RELEASE/CLEARANCE 2023-03-02 05:01:00 Doctor Unassigned, No [facility] AUTHORIZATION FOR RELEASE 2023-01-05 05:01:00 Doctor Unassigned, No [facility] ASSIGNMENT OF BENEFITS 2022-10-04 20:24:45 Doctor Unassigned, No [facility] AUTHORIZATION FOR RELEASE 2022-09-28 06:01:00 Doctor Unassigned, No [facility] POCT-GLUCOSE METER 2022-04-13 15:22:00 Britney Lloyd [facility] SARS-COV2/RT-PCR ([facility] & 2022-04-13 13:39:00 Britney Lloyd [facility] REF LABS) [facility] POCT-GLUCOSE METER 2022-04-13 11:32:00 Britney Lloyd [facility] POCT-GLUCOSE METER 2022-04-13 07:48:00 Britney Lloyd [facility] BASIC METABOLIC PANEL 2022-04-13 04:31:00 Ruth Dominique [facility] MAGNESIUM 2022-04-13 04:31:00 [facility] 2022-04-13 04:31:00 Trip [facility] CBC (HEMOGRAM ONLY) 2022-04-13 04:31:00 [facility] POCT-[facility]UCOSE METER 2022-04-12 20:50:00 [facility] POCT-GLUCOSE METER 2022-04-12 15:42:00 [facility] POCT-GLUCOSE METER 2022-04-12 12:42:00 [facility] POCT-GLUCOSE METER 2022-04-12 08:06:00 [facility] BASIC METABOLIC PANEL 2022-04-12 03:22:00 [facility] MAGNESIUM 2022-04-12 03:[facility] 2022-04-12 03:22:00 [facility] CBC (HEMOGRAM ONLY) 2022-04-12 03:22:00 [facility] POCT-GLUCOSE METER 2022-04-11 20:41:00 [facility] POCT-GLUCOSE METER 2022-04-11 15:29:00 [facility] POCT-GLUCOSE METER 2022-04-11 11:06:00 [facility] POCT-GLUCOSE METER 2022-04-11 07:19:00 [facility] BASIC METABOLIC PANEL 2022-04-11 05:21:00 [facility] MAGNESIUM 2022-04-11 05:21:00 [facility] PHOSPHORUS 2022-04-11 05:21:00 [facility] CBC (HEMOGRAM ONLY) 2022-04-11 05:21:[address] [facility] POCT-GLUCOSE METER 2022-04-10 21:16:[address] [facility] POCT-GLUCOSE METER 2022-04-10 16:48:[address] [facility] POCT-GLUCOSE METER 2022-04-10 11:11:[address] [facility] POCT-GLUCOSE METER 2022-04-10 07:33:[address] [facility] BASIC METABOLIC PANEL 2022-04-10 06:00:00 [facility] MAGNESIUM 2022-04-10 06:00:00 [facility] PHOSPHORUS 2022-04-10 06:00:00 [facility] CBC (HEMOGRAM ONLY) 2022-04-10 06:00:00 [facility] PREPARE LEUKO-REDUCED RBC 2022-04-09 23:54:[address] [facility] POCT-GLUCOSE METER 2022-04-09 22:57:[address] [facility] POCT-GLUCOSE METER 2022-04-09 17:04:[address] [facility] CBC (HEMOGRAM ONLY) 2022-04-09 16:27:00 Trip [facility] POCT-GLUCOSE METER 2022-04-09 11:41:[address] [facility] POCT-GLUCOSE METER 2022-04-09 07:35:[address] [facility] URINE CULTURE 2022-04-09 05:49:00 [facility] CBC W/PLT COUNT & AUTO 2022-04-09 05:41:00 Johanna Horowitz [facility] BASIC METABOLIC PANEL 2022-04-09 05:41:00 Dennis [facility] MAGNESIUM 2022-04-09 05:41:00 Dennis [facility] PHOSPHORUS 2022-04-09 05:41:00 [facility] CBC W/PLT COUNT & AUTO 2022-04-09 05:41:00 Carlos Manuel [facility] POCT-GLUCOSE METER 2022-04-09 00:05:00 [facility] TRANSFUSE LEUKO-REDUCED 2022-04-08 23:02:00 [facility] RED BLOOD CELLS Center CBC (HEMOGRAM ONLY) 2022-04-08 21:58:00 [facility] BASIC METABOLIC PANEL 2022-04-08 21:58:00 Carlos Manuel [facility] MAGNESIUM 2022-04-08 21:58:00 Carlos Manuel [facility] PHOSPHORUS 2022-04-08 21:58:00 [facility] LACTIC ACID, VENOUS 2022-04-08 21:58:00 [facility] VENOUS DOPPLER LEGS 2022-04-08 19:15:00 [facility] BILATERAL [facility] CBC W/PLT COUNT & AUTO 2022-04-08 17:42:00 [facility] DIFFERENTIAL [facility] CBC W/PLT COUNT & AUTO 2022-04-08 17:42:00 Prema [facility] DIFFERENTIAL [facility] BLOOD CULTURE 2022-04-08 16:09:00 [facility] CHEST 1 VIEW PORTABLE 2022-04-08 15:24:00 Britney Lloyd [facility] / BEDSIDE [facility] BASIC METABOLIC PANEL 2022-04-08 15:22:00 [facility] LACTIC ACID, VENOUS 2022-04-08 15:22:[address] [facility] POCT-GLUCOSE METER 2022-04-08 15:20:00 [facility] POCT-GLUCOSE METER 2022-04-08 11:31:[address] [facility] CT LOWER EXTREMITY 2022-04-08 03:52:00 Shepherd [facility] WITHOUT IV CONTRAST [facility] XR PELVIS 1 OR 2 VIEWS 2022-04-07 20:23:00 ShepherdFlorentino platt [facility] POCT-GLUCOSE METER 2022-04-07 17:26:[address] [facility] TISSUE EXAM 2022-04-07 15:36:00 Heaven Garza [facility] XR PELVIS 1 OR 2 VIEWS 2022-04-07 15:10:00 Heaven Garza [facility] HEMIARTHROPLASTY, HIP 2022-04-07 12:16:00 Heaven Garza [facility] POCT-GLUCOSE METER 2022-04-07 09:49:[address] [facility] TYPE AND SCREEN, 2022-04-07 09:12:00 Armani Vela [facility] CBC W/PLT COUNT & AUTO 2022-04-07 06:19:00 Rosa Isela Ching CH I [facility] CBC W/PLT COUNT & AUTO 2022-04-07 06:19:00 Rosa Isela Ching [facility] URINE CULTURE 2022-04-07 05:15:00 Rosa Isela Ching [facility] URINALYSIS W/ REFLEX 2022-04-07 05:15:00 [facility] BASIC METABOLIC PANEL 2022-04-07 05:05:00 [facility] SARS-COV2/RT-PCR ([facility] & 2022-04-06 21:32:00 Humza [facility] REF LABS) [facility] CT ABDOMEN PELVIS W 2021-07-24 18:00:55 Glenn Paulson [facility] CONTRAST Medical Branch URINALYSIS 2021-07-24 17:39:00 Singer [facility] LIPASE 2021-07-24 16:33:00 Singer [facility] COMP. METABOLIC PANEL 2021-07-24 16:33:00 Glenn Paulson [facility] ([id number]) Medical Branch CBC WITH DIFF 2021-07-24 16:33:[facility] NOTICE OF PRIVACY 2021-07-24 16:11:11 Doctor Unassigned, No [facility] PRACTICES Name Medical Branch REPORT OF PROCEDURE - 2021-05-06 16:07:30 Juan Alberto Shelton [facility] ENDOSCOPY URL Center ERCP,DIRECT VISUALIZATION 2021-05-06 15:00:00 Juan Alberto Shelton [facility] SPY GLASS Center PROCEDURE W/ C-ARM 2021-05-06 15:00:[address] [facility] S [facility] ERCP,BALLOON SWEEPING 2021-05-06 15:00:00 Juan Alberto Shelton [facility] CBC W/PLT COUNT & AUTO 2021-05-06 05:51:00 [facility] DIFFERENTIAL [facility] BASIC METABOLIC PANEL (7) 2021-05-06 05:51:00 [facility] HEPATIC FUNCTION PANEL 2021-05-06 05:51:[address] [facility] AB[facility]H, MANUAL 2021-05-05 05:07:00 Zunilda Rubin [facility] TYPE AND SCREEN, 2021-05-05 04:14:00 [facility] AUTOMATED Center PROTHROMBIN TIME/INR 2021-05-05 04:14:00 [facility] SARS-COV2/RT-PCR ([facility] & 2021-05-05 00:18:00 Britney Lloyd [facility] REF LABS) [facility] BLOOD GAS, VENOUS 2021-05-05 00:14:00 [facility] KETONE, BLOOD 2021-05-05 00:14:00 [facility] HIGH SENSITIVITY TROPONIN 2021-05-05 00:14:00 [facility] ED ECG INTERPRETATION 2021-05-04 23:15:17 [facility] BASIC METABOLIC PANEL (7) 2021-05-04 21:30:00 [facility] HEPATIC FUNCTION PANEL 2021-05-04 21:30:00 [facility] AMYLASE 2021-05-04 21:30:00 [facility] LIPASE 2021-05-04 21:30:00 [facility] CBC W/PLT COUNT & AUTO 2021-05-04 19:37:00 [facility] ECG 12-LEAD 2021-05-04 19:22:33 Unknown, [facility] POCT-GLUCOSE METER 2021-03-11 08:21:00 [facility] COMPREHENSIVE METABOLIC 2021-03-11 06:09:00 Clive Alfredo [facility] REPORT OF PROCEDURE - 2021-03-10 23:43:51 Allen Chavez [facility] ENDOSCOPY URL [facility] POCT-GLUCOSE METER 2021-03-10 16:43:00 Jessica Boone [facility] POCT-GLUCOSE METER 2021-03-10 12:45:00 Jessica Boone [facility] [place] ERCP 2021-03-10 12:02:00 Desiree Duggan [facility] ERCP,PAPILLOTOMY 2021-03-10 11:31:00 Othman, [facility] PROCEDURE W/ C-ARM 2021-03-10 11:31:00 [facility] ERCP,BALLOON SWEEPING 2021-03-10 11:31:00 [facility] POCT-GLUCOSE METER 2021-03-10 09:07:00 [facility] CBC (HEMOGRAM ONLY) 2021-03-10 04:50:00 [facility] COMPREHENSIVE METABOLIC 2021-03-10 04:50:00 [facility] PANEL Center HEMOGLOBIN A1C 2021-03-10 04:50:00 [facility] POCT-GLUCOSE METER 2021-03-09 23:54:00 [facility] SARS-COV2/RT-PCR ([facility] & 2021-03-09 20:13:00 Desiree Duggan [facility] REF LABS) Center POCT-GLUCOSE METER 2021-03-09 17:22:00 [facility] MR ABDOMEN WITHOUT IV 2021-03-09 15:38:00 [facility] CONTRAST MRCP Center POCT-GLUCOSE METER 2021-03-09 12:22:00 [facility] URINALYSIS W/ REFLEX 2021-03-09 10:56:00 [facility] URINE CULTURE Center HEPATIC FUNCTION PANEL 2021-03-09 05:25:00 [facility] PROTHROMBIN TIME/INR 2021-03-09 05:25:00 [facility] MAGNESIUM 2021-03-09 05:25:00 [facility] BASIC METABOLIC PANEL (7) 2021-03-09 05:25:00 [facility] CBC W/PLT COUNT & AUTO 2021-03-09 05:25:00 [facility] HEMOGLOBIN A1C 2021-03-09 05:25:00 [facility] Clive [facility] MRI Brain wo contrast 2018-02-08 00:00:[id number] Brain w/wo contrast 2018-02-01 00:00[id number] [...] INFLUENZA VACCINE (Season Ended)] Future Scheduled 2023-05-13 Influenza Vaccine (#1) [facility] 00:00:00 [code = Influenza Medical Ce nter Vaccine (#1)] Future Scheduled 2022-09-12 [place] R[facility] SCREENING [facility] [...] measurement (procedure) [facility] [code = 79881598] Future Scheduled 2021-09-[address] [facility] 00:00:00 measurement (procedure) [facility] [code = [id number]] Future Scheduled 2021-09-[address] [facility] 00:00:00 measurement (procedure) [facility] [code = [id number]] Future Scheduled 2021-09-[address] [facility] 00:00:00 measurement (procedure) [facility] [code = [id number]] Future Scheduled 2021-09-[address] [facility] 00:00:00 measurement (procedure) [facility] [code = [id number]] Future Scheduled 2021-09-[address] [facility] 00:00:00 measurement (procedure) [facility] [code = [id number]] Future Scheduled 2021-09-[address] [facility] 00:00:00 measurement (procedure) [facility] [code = [id number]] Future Scheduled 2021-09-[address] [facility] 00:00:00 measurement (procedure) [facility] [code = [id number]] Future Scheduled 2021-09-[address] [facility] 00:00:00 measurement (procedure) [facility] [code = [id number]] Future Scheduled 2021-09-[address] [facility] 00:00:00 measurement (procedure) [facility] [code = [id number]] Future Scheduled 2021-09-[address] [facility] 00:00:00 measurement (procedure) [facility] [code = [id number]] Future Scheduled 2021-05-13 INFLUENZA VACCINE (#1) [id number] PCV13) [code = PNEUMOCOCCAL 65+ YRS (1 of 1 - [id number]_Gztyejc PCV13)] Future Scheduled 2013 PNEUMOCOCCAL 65+ YRS ([address] [facility] 00:00:00 of 1 - [id number][facility] PCV13) [code = PNEUMOCOCCAL 65+ YRS (1 of 1 - [id number]_Jpcusva PCV13)] Future Scheduled 2013 PNEUMOCOCCAL 65+ YRS ([address] [facility] 00:00:00 of 1 - UZHT93_[facility]x [facility] PCV13) [code = PNEUMOCOCCAL 65+ YRS (1 of 1 - [id number]_Ichotmj PCV13)] Future Scheduled 2013 PNEUMOCOCCAL 65+ YRS ([address] [facility] 00:00:00 of 1 - [id number]_[facility]ggez [facility] PCV13) [code = PNEUMOCOCCAL 65+ YRS (1 of 1 - [id number]_Yshqjbp PCV13)] Future Scheduled 2004-10-14 [facility]NUAL [facility] [...] 00:00:00 examination Medical Center (regime/therapy) [code = 871090759] Future Scheduled 1958 Urine screening for [facility] 00:00:00 protein (procedure) [facility] Center [code = 682422053] Future Scheduled 1958 DIABETIC EYE EXAM [code [facility] 00:00:00 = DIABETIC EYE EXAM] [facility] Future Scheduled [address] [facility] (regime/therapy) [code = 001729032] Future Scheduled 1958 Urine screening for [facility] 00:00:00 protein (procedure) [facility] Center [code = 285458452] Future Scheduled 1958 DIABETIC EYE EXAM [code [facility] 00:00:00 = DIABETIC EYE EXAM] [facility] Future Scheduled [address] [facility] examination [facility] Center (regime/therapy) [code = 561574352] Future Scheduled 1958 Urine screening for [facility] 00:00:00 protein (procedure) [facility] Center [code = 196514457] Future Scheduled 1958 DIABETIC EYE EXAM [code [facility] 00:00:00 = DIABETIC EYE EXAM] [facility] Future Scheduled [address] [facility] 00[facility]:00 examination [facility] Center (regime/therapy) [code = 361950101] Future Scheduled 1958 Urine screening for [facility] 00:00:00 protein (procedure) [facility] Center [code = 800866747] Future Scheduled 1958 DIABETIC EYE EXAM [code [facility] 00:00:00 = DIABETIC EYE EXAM] [facility] Future Scheduled [address] [facility] 00:[facility]:00 examination [facility] Center (regime/therapy) [code = 460691487] Future Scheduled 1958 Urine screening for [facility] 00:00:00 protein (procedure) [facility] Center [code = 007741996] Future Scheduled 1958 DIABETIC EYE EXAM [code [facility] 00:00:00 = DIABETIC EYE EXAM] [facility] Future Scheduled [address] [facility] 00:[facility]:00 examination [facility] Center (regime/therapy) [code = 145802618] Future Scheduled 1958 Urine screening for [facility] 00:00:00 protein (procedure) [facility] Center [code = 157109429] Future Scheduled 1958 DIABETIC EYE EXAM [code [facility] 00:00:00 = DIABETIC EYE EXAM] [facility] Future Scheduled [address] [facility] 00:[facility]:00 examination [facility] Center (regime/therapy) [code = 783106812] Future Scheduled 1958 Urine screening for [facility] 00:00:00 protein (procedure) [facility] Center [code = 437439625] Future Scheduled 1958 DIABETIC EYE EXAM [code [facility] 00:00:00 = DIABETIC EYE EXAM] [facility] Future Scheduled [address] [facility] 00:[facility]:00 examination [facility] Center (regime/therapy) [code = 971528626] Future Scheduled 1958 Urine screening for [facility] 00:00:00 protein (procedure) [facility] Center [code = 619798529] Future Scheduled 1958 DIABETIC EYE EXAM [code [facility] 00:00:00 = DIABETIC EYE EXAM] [facility] Future Scheduled [address] [facility] 00:[facility]:00 examination [facility] Center (regime/therapy) [code = 014590075] Future Scheduled 1958 Urine screening for [facility] 00:00:00 protein (procedure) Medical Center [code = 345663325] Future Scheduled 1958 DIABETIC EYE EXAM [code [facility] 00:00:00 = DIABETIC EYE EXAM] [facility] Future Scheduled [address] [facility] 00:[facility]:00 examination [facility] Center (regime/therapy) [code = 962982876] Future Scheduled 1958 Urine screening for [facility] 00:00:00 protein (procedure) [facility] Center [code = 071157043] Future Scheduled 1958 DIABETIC EYE EXAM [code [facility] 00:00:00 = DIABETIC EYE EXAM] [facility] Future Scheduled [address] [facility] 00:[facility]:00 examination Medical Center (regime/therapy) [code = 707695280] Future Scheduled 1958 Urine screening for [facility] 00:00:00 protein (procedure) Medical Center [code = 694249617] Future Scheduled 1954 PNEUMOCOCCAL 65+ YRS (1 [...] breast Medical C enter (procedure) [code = 113254188] Future Scheduled 1948 Screening for malignant [facility] 00:00:00 neoplasm of colon Medical Ce nter (procedure) [code = 580440943] Future Scheduled 1948 Screening for malignant [facility] 00:00:00 neoplasm of breast Medical C enter (procedure) [code = 199598152] Future Scheduled 1948 Screening for malignant [facility] 00:00:00 neoplasm of colon Medical Ce nter (procedure) [code = 016430966] Future Scheduled 1948 Screening for malignant [facility] 00:00:00 neoplasm of breast Medical C enter (procedure) [code = 674744596] Future Scheduled 1948 Screening for malignant [facility] 00:00:00 neoplasm of colon Medical Ce nter (procedure) [code = 470059614] Future Scheduled 1948 Screening for malignant [facility] 00:00:00 neoplasm of breast Medical C enter (procedure) [code = 869981890] Future Scheduled 1948 Screening for malignant [facility] 00:00:00 neoplasm of colon Medical Ce nter (procedure) [code = 023266231] Future Scheduled 1948 Screening for malignant [facility] 00:00:00 neoplasm of breast Medical C enter (procedure) [code = 112385384] Future Scheduled 1948 CT Colonography (combo) [facility] 00:00:00 [code = CT Colonography [facility] (combo)] Future Scheduled 1948 Screening for malignant [facility] 00:00:00 neoplasm of colon Medical Ce nter (procedure) [code = 596477093] Future Scheduled 1948 Screening for malignant [facility] 00:00:00 neoplasm of colon Medical Ce nter (procedure) [code = 676295374] Future Scheduled 1948 DXA SCAN [code = DXA [facility] 00:00:00 SCAN] [facility] Future Scheduled 1948 Screening for malignant [facility] 00:00:00 neoplasm of colon Medical Ce nter (procedure) [code = 646018382] Future Scheduled 1948 Screening for malignant [facility] 00:00:00 neoplasm of colon Medical Ce nter (procedure) [code = 483137786] Future Scheduled 1948 [facility] Scre[facility] for malignant [facility] 00:00:00 neoplasm of breast Medical C enter (procedure) [code = 963501910] Future Scheduled 1948 CT Colonography (combo) [facility] 00:00:00 [code = CT Colonography [facility] (combo)] Future Scheduled 1948 Screening for malignant [facility] 00:00:00 neoplasm of colon Medical Ce nter (procedure) [code = 147147147] Future Scheduled 1948 Screening for malignant [facility] 00:00:00 neoplasm of colon Medical Ce nter (procedure) [code = 372191833] Future Scheduled 1948 DXA SCAN [code = DXA [facility] 00:00:00 SCAN] [facility] Future Scheduled 1948 Screening for malignant [facility] 00:00:00 neoplasm of colon Medical Ce nter (procedure) [code = 964972788] Future Scheduled 1948 Screening for malignant [facility] 00:00:00 neoplasm of colon Medical Ce nter (procedure) [code = 495920181] Future Scheduled 1948 [facility]oidoscopy [facility] Future Scheduled 1948 Screening for malignant [facility] 00:00:00 neoplasm of breast Medical C enter (procedure) [code = 219132930] Future Scheduled 1948 CT Colonography (combo) [facility] 00:00:00 [code = CT Colonography [facility] (combo)] Future Scheduled 1948 Screening for malignant [facility] 00:00:00 neoplasm of colon Medical Ce nter (procedure) [code = 593791098] Future Scheduled 1948 Screening for malignant [facility] 00:00:00 neoplasm of colon Medical Ce nter (procedure) [code = 989363135] Future Scheduled 1948 DXA SCAN [code = DXA [facility] 00:00:00 SCAN] [facility] Future Scheduled 1948 Screening for malignant [facility] 00:00:00 neoplasm of colon Medical Ce nter (procedure) [code = 904730637] Future Scheduled 1948 Screening for malignant [facility] 00:00:00 neoplasm of colon Medical Ce nter (procedure) [code = 118706669] Future Scheduled 1948 [facility]oidoscopy [facility]] [facility] Future Scheduled 1948 Screening for malignant [facility] 00:00:00 neoplasm of breast Medical C enter (procedure) [code = 202333634] Future Scheduled 1948 CT Colonography (combo) [facility] 00:00:00 [code = CT Colonography [facility] (combo)] Future Scheduled 1948 CT Colonography (combo) [facility] 00:00:00 [code = CT Colonography [facility] (combo)] Future Scheduled 1948 Screening for malignant [facility] 00:00:00 neoplasm of colon Medical Ce nter (procedure) [code = 308001780] Future Scheduled 1948 Screening for malignant [facility] 00:00:00 neoplasm of colon Medical Ce nter (procedure) [code = 021424579] Future Scheduled 1948 DXA SCAN [code = DXA [facility] 00:00:00 SCAN] [facility] Future Scheduled 1948 Screening for malignant [facility] 00:00:00 neoplasm of colon Medical Ce nter (procedure) [code = 797914989] Future Scheduled 1948 Screening for malignant [facility] 00:00:00 neoplasm of colon Medical Ce nter (procedure) [code = 934555454] Future Scheduled 1948 [facility]oidoscopy [facility] 1948 Screening for malignant [facility] 00:00:00 neoplasm of breast Medical C enter (procedure) [code = 766953559] Future Scheduled 1948 CT Colonography (combo) [facility] 00:00:00 [code = CT Colonography [facility] (combo)] Future Scheduled 1948 Screening for malignant [facility] 00:00:00 neoplasm of colon Medical Ce nter (procedure) [code = 139597324] Future Scheduled 1948 Screening for malignant [facility] 00:00:00 neoplasm of colon Medical Ce nter (procedure) [code = 223080904] Future Scheduled 1948 DXA SCAN [code = DXA [facility] 00:00:00 SCAN] [facility] Future Scheduled 1948 Screening for malignant [facility] 00:00:00 neoplasm of colon Medical Ce nter (procedure) [code = 309126301] Future Scheduled 1948 Screening for malignant [facility] 00:00:00 neoplasm of colon Medical Ce nter (procedure) [code = 759042421] Future Scheduled 1948 Sigmoidoscopy [facility]] [facility] Future Scheduled 1948 Screening for malignant [facility] 00:00:00 neoplasm of breast Medical C enter (procedure) [code = 040668094] Future Scheduled 1948 CT Colonography (combo) [facility] 00:00:00 [code = CT Colonography [facility] (combo)] Future Scheduled 1948 Screening for malignant [facility] 00:00:00 neoplasm of colon Medical Ce nter (procedure) [code = 551405694] Future Scheduled 1948 Screening for malignant [facility] 00:00:00 neoplasm of colon Medical Ce nter (procedure) [code = 563552120] Future Scheduled 1948 DXA SCAN [code = DXA [facility] 00:00:00 SCAN] [facility] Future Scheduled 1948 Screening for malignant [facility] 00:00:00 neoplasm of colon Medical Ce nter (procedure) [code = 273551084] Future Scheduled 1948 Screening for malignant [facility] 00:00:00 neoplasm of colon Medical Ce nter (procedure) [code = 103777251] Future Scheduled 1948 Sigmoidoscopy [facility]] [facility] Future Scheduled 1948 Screening for malignant [facility] 00:00:00 neoplasm of breast Medical C enter (procedure) [code = 225972185] Future Scheduled 1948 CT Colonography (combo) [facility] 00:00:00 [code = CT Colonography [facility] (combo)] Future Scheduled 1948 Screening for malignant [facility] 00:00:00 neoplasm of colon Medical Ce nter (procedure) [code = 870947391] Future Scheduled 1948 Screening for malignant [facility] 00:00:00 neoplasm of colon Medical Ce nter (procedure) [code = 452203059] Future Scheduled 1948 DXA SCAN [code = DXA [facility] 00:00:00 SCAN] [facility] Future Scheduled 1948 Screening for malignant [facility] 00:00:00 neoplasm of colon Medical Ce nter (procedure) [code = 814071556] Future Scheduled 1948 Screening for malignant [facility] 00:00:00 neoplasm of colon Medical Ce nter (procedure) [code = 697259169] Future Scheduled 1948 Screening for malignant [facility] 00:00:00 neoplasm of colon Medical Ce nter (procedure) [code = 921023922] Future Scheduled 1948 Sigmoidoscopy [facility]] [facility] Future Scheduled 1948 Screening for malignant [facility] 00:00:00 neoplasm of colon Medical Ce nter (procedure) [code = 557120870] Future Scheduled 1948 Screening for malignant [facility] 00:00:00 neoplasm of breast Medical C enter (procedure) [code = 229587230] Future Scheduled 1948 CT Colonography (combo) [facility] 00:00:00 [code = CT Colonography [facility] (combo)] Future Scheduled 1948 Screening for malignant [facility] 00:00:00 neoplasm of colon Medical Ce nter (procedure) [code = 791500368] Future Scheduled 1948 Screening for malignant [facility] 00:00:00 neoplasm of colon Medical Ce nter (procedure) [code = 443077705] Future Scheduled 1948 DXA SCAN [code = DXA [facility] 00:00:00 SCAN] [facility] Future Scheduled 1948 Screening for malignant [facility] 00:00:00 neoplasm of colon Medical Ce nter (procedure) [code = 345369837] Future Scheduled 1948 Screening for malignant [facility] 00:00:00 neoplasm of colon Medical Ce nter (procedure) [code = 858545728] Future Scheduled 1948 Screening for malignant [facility] 00:00:00 neoplasm of colon Medical Ce nter (procedure) [code = 181833193] Future Scheduled 1948 [facility]igmoidoscopy [facility]] [facility] Future Scheduled 1948 Screening for malignant [facility] 00:00:00 neoplasm of breast Medical C enter (procedure) [code = 159328387] Future Scheduled 1948 [facility]oidoscopy [facility] (combo) [facility] 00:00:00 [code = CT Colonography [facility] (combo)] Future Scheduled 1948 Screening for malignant [facility] 00:00:00 neoplasm of colon Medical Ce nter (procedure) [code = 923481461] Future Scheduled 1948 Screening for malignant [facility] 00:00:00 neoplasm of colon Medical Ce nter (procedure) [code = 111207547] Future Scheduled 1948 DXA SCAN [code = DXA [facility] 00:00:00 SCAN] [facility] Future Scheduled 1948 Screening for malignant [facility] 00:00:00 neoplasm of colon Medical Ce nter (procedure) [code = 288981261] Future Scheduled 1948 DXA SCAN [code = DXA [facility] 00:00:00 SCAN] [facility] Future Scheduled 1948 Screening for malignant [facility] 00:00:00 neoplasm of breast Medical C enter (procedure) [code = 316857953] Future Scheduled 1948 CT Colonography (combo) [facility] 00:00:00 [code = CT Colonography [facility] (combo)] Future Scheduled 1948 Screening for malignant [facility] 00:00:00 neoplasm of colon Medical Ce nter (procedure) [code = 664597974] Future Scheduled 1948 Screening for malignant [facility] 00:00:00 neoplasm of colon Medical Ce nter (procedure) [code = 470829875] Future Scheduled 1948 Screening for malignant [facility] 00:00:00 neoplasm of colon Medical Ce nter (procedure) [code = 636524052] Future Scheduled 1948 Screening for malignant [facility] 00:00:00 neoplasm of breast Medical C enter (procedure) [code = 814772055] Future Scheduled 1948 CT Colonography (combo) [facility] 00:00:00 [code = CT Colonography [facility] (combo)] Future Scheduled 1948 Screening for malignant [facility] 00:00:00 neoplasm of colon Medical Ce nter (procedure) [code = 386391962] Future Scheduled 1948 DXA SCAN [code = DXA [facility] 00:00:00 SCAN] [facility] Future Scheduled 1948 Screening for malignant [facility] 00:00:00 neoplasm of colon Medical Ce nter (procedure) [code = 076312353] Future Scheduled 1948 DXA SCAN [code = DXA [facility] 00:00:00 SCAN] [facility] Future Scheduled 1948 Screening for malignant [facility] 00:00:00 neoplasm of colon Medical Ce nter (procedure) [code = 690153494] Future Scheduled 1948 Screening for malignant [facility] 00:00:00 neoplasm of colon Medical Ce nter (procedure) [code = 684477706] Future Scheduled 1948 Sigmoidoscopy [facility]] [facility] Future Scheduled 1948 Screening for malignant [facility] 00:00:00 neoplasm of colon Medical Ce nter (procedure) [code = 129834701] Future Scheduled 1948 Screening for malignant [facility] 00:00:00 neoplasm of colon Medical Ce nter (procedure) [code = 724385102] Future Scheduled 1948 [facility]oidoscopy [facility] 1948 Screening for malignant [facility] 00:00:00 neoplasm of colon Medical Ce nter (procedure) [code = 980460301] Future Scheduled 1948 Sigmoidoscopy [code = [facility]] [facility] Future Scheduled 1948 Screening for malignant [facility] 00:00:00 neoplasm of breast Medical C enter (procedure) [code = 689160218] Future Scheduled 1948 CT Colonography (combo) [facility] 00:00:00 [code = CT Colonography [facility] (combo)] Future Scheduled 1948 Screening for malignant [facility] 00:00:00 neoplasm of colon Medical Ce nter (procedure) [code = 373725039] Future Scheduled 1948 Screening for malignant [facility] 00:00:00 neoplasm of colon Medical Ce nter (procedure) [code = 746646170] Future Scheduled 1948 DXA SCAN [code = DXA [facility] 00:00:00 SCAN] [facility] Future Scheduled 1948 Screening for malignant [facility] 00:00:00 neoplasm of colon Medical Ce nter (procedure) [code = 224820593] Future Scheduled 1948 Screening for malignant [facility] 00:00:00 neoplasm of colon Medical Ce nter (procedure) [code = 580881725] Future Scheduled 1948 Sigmoidoscopy [code = [facility]oscopy] Medical Joee r Future Scheduled 1948 Screening for malignant [facility] 00:00:00 neoplasm of breast Medical C enter (procedure) [code = 846761729] Future Scheduled 1948 CT Colonography (combo) [facility] 00:00:00 [code = CT Colonography [facility] (combo)] Future Scheduled 1948 Screening for malignant [facility] 00:00:00 neoplasm of colon Medical Ce nter (procedure) [code = 224380157] Future Scheduled 1948 Screening for malignant [facility] 00:00:00 neoplasm of colon Medical Ce nter (procedure) [code = 872350175] Future Scheduled 1948 Screening for malignant [facility] 00:00:00 neoplasm of breast Medical C enter (procedure) [code = 314525162] Future Scheduled 1948 DXA SCAN [code = DXA [facility] 00:00:00 SCAN] [facility] Future Scheduled 1948 Screening for malignant [facility] 00:00:00 neoplasm of colon Medical Ce nter (procedure) [code = 823142679] Future Scheduled 1948 Screening for malignant [facility] 00:00:00 neoplasm of colon Medical Ce nter (procedure) [code = 621819049] Future Scheduled 1948 Sigmoidoscopy [facility]] Medical Joee r Encounters Start End Encounter Admission Attending Care Care Encounter Source Date/Time Date/Time Type Type Clinicians Facility Department ID 2022-04-06 [facility] [id number] [facility] 16:46:00 Encounter [facility] 2022-04-06 [facility] [id number] [facility] 16:46:00 Encounter [facility] 2021-06-21 Inpatient ER ADIO, [facility] [id number] [facility] 02:39:12 [place] 2023-03-02 2023-03-02 Orders Doctor HEAVEN [id number] [id number] [facility] 00:00:00 00:00:00 Only Unassigned, ARIS 350.1.13.10 ity of [facility] 4.2.7.2.686 Arnie as [phone] [address] 2023-01-05 2023-01-05 Orders Doctor HEAVEN 1.2.840.114 [id number] Univers 00:00:00 00:00:00 Only Unassigned, ARIS 350.1.13.10 ity of [facility] 4.2.7.2.686 Arnie as [phone] [address] 2022-10-27 2022-10-27 [facility] [id number] Univers 14:45:00 14:45:00 [facility] 2022-10-21 2022-10-21 [facility] [id number] Univers 09:45:00 10:16:42 BALDOMEROMARIA DOLORES reynolds [facility] 2022-10-21 2022-10-21 [facility] [id number] Univers 09:45:00 10:16:42 Visit Baldomero Camacho [email or web address] 350.1.13.10 it y of [facility] 4.2.7.2.686 Arnie as DERIK?BLEA [id number] De debi[address] OFFICE [facility] 2022-10-13 2022-10-13 Out[facility] [id number] Univers 15:30:00 15:30:00 BALDOMERO wolf [facility] 2022-10-11 2022-10-11 Telephone [facility] [id number] [id number] Univers 00:00:00 00:00:00 Baldomero Camacho [email or web address] 350.1.13.10 it y of [facility] 4.2.7.2.686 Arnie as DERIK?BLEA [id number] De jermaine [address] 2022-10-08 2022-10-08 Telephone [facility] 1.2.840.114 [id number] Univers 00:00:00 00:00:00 Baldomero ANGLIN 350.1.13.10 it y of [place] 4.2.7.2.686 Arnie as DERIK?BLEA [id number] De jermaine JOHNSON [address] MEDICAL OFFICE [facility] 2022-10-06 2022-10-06 Telephone [facility] [id number] Univers 00:00:00 00:00:00 Baldomero Camacho HEALTH 350.1.13.10 it y of [place] 4.2.7.2.686 Arnie as DERIK?BLEA [id number] De jermaine JOHNSON [address] [facility] OFFICE [facility] 2022-10-04 2022-10-04 Box Office Attendant Lab, Ang - Db [facility] 1.2.840.1 [id number] Univers 15:15:00 15:30:00 Visit Baldomero Rao 350.1.13.10 ity of [place] 4.2.7.2.686 Arnie as DERIK?BLEA [phone] De jermaine JOHNSON [address] [facility] OFFICE [facility] 2022-10-04 2022-10-04 Outpatient [facility] [id number] Univers 14:30:00 15:22:10 BALDOMERO itwolf [facility] 2022-10-04 2022-10-04 Office [facility] [id number] Univers 14:30:00 15:22:10 Visit Baldomero ANGLIN 350.1.13.10 it y of [facility] 4.2.7.2.686 Arnie as DERIK?BLEA [phone] De jermaine JOHNSON 198 [employer] [facility] 2022-10-04 2022-10-04 Orders Doctor HEAVEN [id number] Univers 00:00:00 00:00:00 Only Unassigned, ARIS 350.1.13.10 ity of [place] [facility] 4.2.7.2.686 Arnie as [phone] [address] 2022-10-01 2022-10-01 Telephone [facility] [id number] Univers 00:00:00 00:00:00 [facility] 350.1.13.10 it y of [place] 4.2.7.2.686 Arnie as DERIK?BLEA [id number] Me jermaine IRAM [address] [place] [address] MEDICAL OFFICE BUILDING 2022-09-28 2022-09-28 Orders Doctor HEAVEN [id number] Univers 00:00:00 00:00:00 Only Unassigned, ARIS 350.1.13.10 ity of [place] [facility] 4.2.7.2.686 Arnie as [phone] [address] 2022-04-06 2022-04-13 [facility] [id number] [facility] 16:50:00 19:40:00 [facility] 2022-04-13 Inpatient ER [facility] Surgery [id number] [facility] 16:50:00 19:40:00 [facility] 2022-04-06 2022-04-13 [facility] ER [facility] Bern[facility] [id number] [facility] 16:50:00 19:40:00 [facility] 2022-04-07 2022-04-07 Anesthesia Cerna, [facility] [id number] 12:31:00 16:21:00 Event Lili [facility] 2022-04-07 2022-04-07 [facility] [id number] 12:31:00 16:21:00 Event Lili [facility] 2022-04-07 2022-04-07 Surgery Greg [facility] [id number] 12:00:00 14:51:00 Heaven Carbajal [facility] 2022-04-07 2022-04-07 Surgery Greg [facility] [id number] 12:00:00 14:51:00 Heaven Carbajal [facility] 2022-04-07 2022-04-07 Travel [facility] [id number] [facility] 00:00:00 00:00:00 [facility] 2022-04-07 2022-04-07 Travel [facility] [id number] [facility] 00:00:00 00:00:00 [facility] 2021-07-24 2021-07-24 Emergency X [facility] ERT [id number] Univers 10:12:00 14:31:00 GLENN gail [facility] 2021-07-24 2021-07-24 Emergency [facility] [id number] Univers 10:12:00 14:31:00 Glenn DONATO 350.1.13.10 i ty [facility] 4.2.7.2.686 [facility] [phone] [place] [address] [place] 2021-05-04 2021-05-07 Hospital ER Ga Faustinamanda [facility] [id number] 17:37:00 10:59:00 [facility] 2021-05-06 2021-05-06 Anesthesia Denise Quispe [facility] [id number] [facility] 15:10:00 16:27:00 Event Сергей Lyndonkathy [facility] 2021-05-06 2021-05-06 Surgery Nikita [facility] [id number] 13:00:00 14:30:00 [facility] 2021-05-05 2021-05-05 Travel [facility] [id number] [facility] 00:00:00 00:00:00 [facility] 2021-05-04 2021-05-04 Emergency ER SLE Emergency [id number] [facility] 17:24:00 17:24:00 2021-05-04 2021-05-04 Orders [facility] [id number] 00:00:00 00:00:00 Only [facility] 2021-05-04 2021-05-04 Travel [facility] [id number] [facility] 00:00:00 00:00:00 [facility] 2021-05-01 2021-05-01 Emergency E EVANGELINA, MHBL MHBL [id number] MHBL 16:21:00 22:56:00 CRISTELA 2021-03-13 2021-03-13 Telephone Ezequiel [facility] [id number] 00:00:00 00:00:00 Tyesha Mojica [facility] 2021-03-08 2021-03-11 Hospital Paola Marcum [facility] [id number] 23:13:00 11:35:00 [address]ela Cihng [facility] 2021-03-10 2021-03-10 Surgery Kathy, [facility] [id number] 11:00:00 12:30:[address] [facility] 2021-03-10 2021-03-10 Anesthesia Bahena, [facility] [id number] 11:36:00 12:27:00 Event Graciela Tian [facility] 2018-02-01 2018-02-01 [facility] [id number] [place] 08:00:00 08:00:00 tHOLLIE COBOS Phy sici CHRISTINA, M.D. ans M.D. Results Test Description Test Time Test Comments Results Result Comments Source Tissue Exam 2022-04-14 16:40:15 Test Item Value Reference Range Interpretation Comme nts Case Report (test code = 104) Surgical Pathology Report Case: [id number] Authorizing Provider: Heaven Garza MD Collected: 04/07/2022 03:36 PM Ordering Location: [facility] PERIOPERATIVE Received: 04/07/2022 04:23 PM SERVICES Pathologist: Omari Lora MD Specimen: Femoral Head, Right Hip DIAGNOSIS (test code = 3220) c5hroWUiAVChb5yxPBYuuRNnAnDlDxHfBcUuTd pc dWMxIHtccnRmMVxlcGljOTYwMlxhbnNpXHNwbHRw C1VmurznTEukDG5kXZ6ygZmexOYckQDyLVShJhGu w7thr539qGOon4nzDQKZfnmdoQq0eUahR36tt9W7 GdssS40ehXAkGEH5RYDxTCTtcADbJQPqIUA8LQUh hEHdF0joSNHmUL1gvaqiJQgbVQuiOIThkOX0LRTt hTMoV4LnFQWxEFlyOYFhgxd5SlDzMe1qdBJcuEkj DItxWZLdDUTyFLnaBKRiLbHhYa9NGUhhXwzUURCh IrMOW7EJCYSCPKUGPXZQSzWIYe3DGZRLAPhazKAl NZKeTDPEIhqIXxnuWU6SMHmYIG4TNspCV9IkFWFQ AHRTHLQFKSSZBKCRAPIGEkKMIGJFHKIBXH0HBKDl O27YU8yOBSBQONEKANAEDRiIN0HMWtisS2DpHlVA U1ZOWeBmlEQjGEKzRDQSUwUKQFoRQ37BXfCXDYWW HX1ftSFzpCqfmpHrVUhuj1HgDKquNPYxNC4uiYbb LRYxRK7mFWAtL2wkbD7hvkt0GdIeEATsKvB8KPBw faU6Fbg6WKPfVGkua4ami5ZyTVPyFEk4yWobJcFl JBNkk1kfitAoDjOpVVCgUEEqDEQwvVAeH173w0yt y3qsibQqfXE2DSEqRDB8QJtjryEirrO0YRmkhGLv AnZ6TAzvfjWnPLxvgzHbsbXiJjw1OBDvX035FTA7 rQaml7tvAVS1ZMWpZHPoMdLhZo6hoBPnP741VXTi IWWZCIZlwAh5TPYrzvAvaaVqjZKNl460Z097i9aq DPXmkoNtaJjIbvwqc9zoH173KJSzrHJybfPcSaGc CXKnhTDpyMQ5IHRcXI4qfivvDTfjMOolNBOlyxF1 OVRhlJBmT4NcUMBoRW6boqtjIDZ3DDiqDHJfUPO1 AlPfGWNir6Iowao6XnPsrh0tck35MAX2o2EeuQec JOU2KXJ6YaQySg6ipWYgHIAcSO3dGrVvqUFuTBJi ad95bLckURbfGLN5PDDmmnUee7Kop6ziVbOcrtEq K5poR1JnAOTsIIHqJTXjSuIsiiHzb4Emp6FczQCe oHg1k4irALXzKNWrzUlih6plAQY5LQDmfZFvJ8qg sG7vQVPzTB3qcgysx7jyNKuvDFcmJREvmJQ7tzN5 NTFhtPQrY3MqhP2gOWVoHMljOIUnfml0UsKfEl4p dGVyeTcyMFxzYmtwYWdlXHBnbmNvbnRccGduZGVj XHBsYWluXHBsYWluXGYwXGZzMjRccWxcbGFuZzEw ElFchDnilYxwBVugSuSfJMDmDUkrH1oqVzQxBlUy Hfl7PBEimJNwGEGwCpi9BBGrnGFsJHOSkSzcjS6f PNQokIfzwC7zqFM5OVYfmxTqzFXUmM8sTBLVkK6m SrJ1PgRoDxZ7LXy6AsTteOFqgU1= CPT Code(s) (test code = 3357) j2egmARgEEXahAD8GcZjVUImh0dmp4AkwWKe cGFy USzsxHLpvaGnrz15qMO5eI39NW6vKGAtLvF0MZHt mbS8Uun4SPByALLhkVXeF943s6ocx7miwxMssBU5 jUqsULLuggtdKcH6UFamSMJkehvoLMz9DGjoRRRy bYF0BDZviCAsM7GcDVKlLA2lbdo0UKT0WLueRBDj NqT3FAGqpSEmBDOeaQmjSGutm982WEG5UtOpOUDf diNmeCbjkN8dZfNfAKW7CYPnQJjqZHlsKTXfmQUw fQ== CLINICAL HISTORY (test code = 3356) k1lxgJYvKESftPR0WuIaLTXdz0tdk1S sdHBncGFy OJjryIHkaqOjtp85fXJ0wJ11MD9kPPUkNeW9SCRw swR5Sbj8YOGqXURctBGzW138i6uyi0oyjxEqcFL0 HYBwUIEhJ9InXJ5kJKUlhSDzC59fcXRlPEX7UMRb BWRghLBsSKAeHSQ2VPAntZNtD9gbSPDgLZ4qzddy LXeaSStyQYQejRZ1BPZywYLxF9LlRGMfSNzbCMHl sci9LhEmIp4wpMNhpQhlZSosPEUyXKQnINfazBHw gfwemjWnVHFdTINRNChZIJBNIVGtWaIZD5QXNsJy cGFyfQ== SPECIMEN SOURCE (test code = 3377) b9mtzLDfWIXdfJI0ByYzQCLjw6gbf9Vc dHBncGFy OYpagBDugmHiwk10fHN2qW83NA3dXOOjByF5ZYRa baD3Vri7SOKcSKMfkVYxO388z9ykj0uuwzXddED5 uJpsDCAdznyuWyC8QGykTLUfijrzBIp0HQrfYMEc cRD6YLJspLZoL5AlPFPsRJ8qbpf0LOR2NLvjOPLl OwO9ELIywGMvFELilTjvFNvje359WSR2MjJiKQGm vaZshKnojE2sKmTaZOWJGaFNGK8ghhKbBSrjUIQn LLCiC1j3BRoyiV0crVBduV== GROSS DESCRIPTION (test code = c3ahaVImZCMytHF1BgZmEKNhm4aih7SyiPJv cGFy [id number]) QMtdmATtzzLdmh06dAP1lR44VZ7lYGMwXlE6GWGs oiZ0Zmv6JAVuDVUnsVDjS094c6eqe7oyqwUspAG6 ADWsGLXcT3JqRY8qMPDpuZQgO13fjETqAKA5VOLz PXAsiBCxKFZyZFB5MRCnnRKeB5unDEItDM5nmfhv DHpbNHmrFYNxhYH7GSSsaKWhD0OtOBQiPKnxUAYe gug6KzYrBw7skRFirWxqLGgfBSUyb3spVNGviJWj RHX1OEwciZZnUUIaAGUgFIg0RMHwWFejbMAyJE4o oWtvInbamWeou8CyzPNhLAkbMBSoAZCtNYhgCPMv Q9YBKTXgTqj3MDxzSpYoOUo4RKsaD2ACOICwYMA5 LAT2EGOpUlK1QXq2GMXVIa2rZMf1ObT7QpD7JDS6 ZbP9ADgwhKJbUFwnDemmWEboDIPlvOGaJUolepV5 CWDvWOffALKkWsAsMX7qIiXjw9SvgABSBVKdORKW aWdodCBIaXAuXHBhclxmczIwXGNmMSBSZWNlaXZl ZCBmcmVzaCBsYWJlbGVkIHdpdGggdGhlIHBhdGll mxJmadMlKH3zHFVuR9Qlt1Rum05xotZyVtDiBINw XKDivwozqKDhbAifKQEthP1iDOdibNGdATSyxTWj LNT1WqYaxWP3PjPnvOIlOmHlD38pZmZje5VegKSm MTIcLYfneRlzKXCiNExlGICvFGxkwW3xklfaY4qu SVS6jfnpJ2PaZI8gvlrmkq2rCJLiQJAlchJlN4Zu PJKff2CrCwMqLOLubdAluF8tbHvrsB5hYyykUPn0 FOcsXL95aUVsKoKfLGnlFHO0zKPvlRHpFYRlHTlq FGVhah29FNgfm7unWWOzFcT4e4FnjOIrGJ7rzxXu NTpjJsEteCI0kPYlwQUuR8mnSDK2dmHcQKX4nGN0 GWFxRL5qZJOkek8jQILLDIAlJLTqvpGxyRf1EPRv DSR1xQ2ijpMtkdXav6YtzIp7oBBoESdaMIMsGHUn QQVjxQdkq8mkYnSyJMJcpPPcRsdmEFBfi24yBRlt dCoqkMneNF9eqjjvmxFqpsODVJ0qxAtbZVzvsV3z QZWwjYRyRWStG9EblZivwcybJHYePKmBHAaXX6XN JHnrYGUqT5UxR9WtnyI2o1nemPbfs3PrsVZfWL4p cGFyfQ== MICROSCOPIC DESCRIPTION (test code = p2qcnDDrRPYalDH6NpXvKLYkg9cnm6 BsdHBncGFy 3371) ARwdwXColgGdhm72oAE5tY61BA7mUUUoRzN3AJBv acC5Mae5KKFeFYFjbYKgC864w1kso8oacxDgtNK2 rUxzRSTwbhjvJtV6FTliYDQnoiarNCo2MOwoXKRn oPB6UBXbkNYtV4DsFYXqET9jqbt1SNJ4GWmjTBQh UkP4DTKvjBHaIULqrSwfBYane578MLT9BkPsRMIr wzYruCyckU6gYbMdRLTQXMIgx4VeJFOyRFHfhj2= Gross assessment was performed at ([facility] C enter, code = 2777) Department of Pathology, [address] [place] [address], Technical component was performed at [facility] er, (test code = 2778) Department of Pathology, [address] [place] [address], Professional component was performed at [facility] enter, (test code = 2779) Department of Pathology, [address] [place] [address], [id number] 16:40:15 Test Item Value Reference Range Interpretation Comments Case Report (test code Surgical Pathology = 104) Report Case: [id number] Authorizing Provider: Heaven Garza MD Collected: 04/07/2022 03:36 PM Ordering Location: [facility] PERIOPERATIVE Received: 04/07/2022 04:23 PM SERVICES Pathologist: Omari Lora MD Specimen: Femoral Head, Right Hip DIAGNOSIS (test code = n4fqlYJwGJXzg1anQOJgfMX 3220) uZzEwMzNcZnRuYmpcdWMxIH tccnRmMVxlcGljOTYwMlxhb xQrNQVsaVAhO9KumygxJFun FT9sQF9zeUbohZGjxCUtBOI mKbNxp8aol441nKBuq1ctMW YNlwllcNq9cHbnY40rq1I1R zgpO95ocFDwBNW1LLWkQGUp oXUeXOIeSEL1TQAryNKdC3u fAFPiBZ4yxwfuQPzzHFbmXT KgxOJ4AGHmtTYfJ6QdKOMlU ObaFWXrwbx2KiHfTm1mvKTi eTcyMFxwYXJkXHBsYWluXGZ wKiFjKh6YMNvrEpvRBCKxYu UKJ5DKEVLMFJDVHRPVZrUXZ b1EKTYLNTbmuFNnTGLkSPZC XcfPZzlyPQ3UZBcUZX9OIfb RQ1FeJCYDAYJCHGINMLWOCZ KMGPAATcACVBUPTHFPZK4GT FSrX72FI5mQUXFFQZRMREPK GVlPY3UDKsimY8ZuOnZSM3T VUkVccGFyICAgLSBOTyBNQU rPQ27IQgAJRZKAYS4dnGJgq GtrddPhZWjrd2FkPTnjWZWw XG5brEjyTZNeNZ7eCXTyD6n mjA9roix1PsArKXXfXdD1PQ GmpjS1Pzo8PJNeXGctd9huq 6YuNOGxSNd3nVjfEaEhPGSf q6kmqiZmXyPbQZYnPZPdXBM ueFOdB829v1vas8yleuEpmH L2VOScZBF9JUqfguLcdtR6L EqvaECeLsS0CEmlzzGkCXjd dsEqnuYzIal7WUDsC921WST 5cPfkg8meSPN3LPJeYJAyIc JcNj9fhQQlP037SDZbTJYAY NBrzUb6GOMnlnWbnmEevMEH k507K621c5ntUZIyoyGymBz Efukyn9nwJ747MSIrzAGfjr NeAdJjLRGdmEQkiOB6VQTfS N7oxsgaGCfkKPnsQSZjmfU0 UXMwzEIpA5BqVRMiHC1ugdz tBQX8DIgfIDNnBPV3MoMdBM Cfd7Onqwu3PuIpgo8czf26F WB0s4FjxMymMGU1RCR4RrOc En2tvVHtPWMpYH0nXkOwrJK nMAAdkh71wHycOYjxTPK8UT RlhvCbk7Sou0qaJeCvncUpF 6wiF1CyGJXhYKXbBLZnJsYv ygLbg6Aox6PyhYAqdDr4d3n aNJMuNQMtxAwbb5akHDQ6IW RsnSJzL8iliX2bXQIgGS2tz nljz8mbNJzjDRryFCAmxHH7 myH9KJCqkEZeZ3JyiC4tXEG xFGwzJIAsfbi8BcXhAp8xwS VyeTcyMFxzYmtwYWdlXHBnb mNvbnRccGduZGVjXHBsYWlu XHBsYWluXGYwXGZzMjRccWx cbGFuZzEwMzNcaGljaFxmMV jtBhPuADXqVQokO6csAqGzZ rHeYta1MDRbcEEmGNZqDra4 ULUdtHZuMYAPxMaocP7cTAR jfDkptJ9pbES8OPZuemAzvZ JAoN0gRHZPcN8vEoB9QmLgM vR7SLu8QlFhpQAouV0= CPT Code(s) (test code a9caoOEqNBXbpFP6NrFfZEO = 3357) tw6wpm5SmfAFpfZNjZLhvyL BgchNrsc99oZU3bC34DO6mM IBdKrY5DYKkzkW6Rjp7MBSj OGNbtKKmZ859i5yeg4mrtpE skXY1xRpgWWPiplplWzB0PE glYRKipynpYEk8NWjiNJLdl BN6HCPsqVNvM7CfBBNgVU7b les1YHO3EGchIBPoJnX9QEZ orFMdZBJtqAfuVXwxf210LH N6QaZwVFYeunKbdLabpZ0xD yViJAE7UTGkQTzsRCbdQIWx cGFyfQ== CLINICAL HISTORY (test m3janHZuZQVagYU1PlToCMR code = 3356) cc2kcm8YwuDCxaDOnMNnfzD YlrnJzik08zKF8rD77UV1nB DRdFmO2CNYikaQ3Ecs0NVXn PHIlrYReY397z1nfw8cayoZ gkGS1JGImOMJuM8VzJE8rXJ XfnBNbI53xlWRbZCW2QDPyR HBcvZDcLBXzJWA5AQXvpLGh R1cgFAXgMU8elcbdNMqvGIb eZPVujPD9QRPcwDZuH8OuZE OxAYcwZEVkcpf8YvVxLo5da GVyeTcyMFxwYXJkXHJpMVxw bGFpblxmczIwXGNmMSBSSUd XJHCCJQLdNvHBA9TKEiYryR FyfQ== SPECIMEN SOURCE (test v2xgfLAcVHYscBV5UwNpCOB code = 3377) bn5kul4BtwQJyiDHjBQwtlH ZfpoEorj46cWJ0kZ44KA2qV WIuVaV3PWMcdgA8Uyl8JHRt NDFsvQHaE865a2cil6hdtyC idFA6gIkfPWHdvwxhQcW6MC ypJYEvcwjoBCn9SSihGEOof FQ0DVWufNUhB9SkKGFuKT8g jnh7KPP3DQkcGGFnKnV7YIH kjLFpNBCbpDcwTFfaq413HL G8FgTbZHSuumXmtPqqfJ7mN lBjSZNBFwSRWM9gfhKgDWgi MWZpEGZpQ0c9MXhkoS3ehYT yfQ== GROSS DESCRIPTION e2urjIZoKOMhwVT6XnYqEWB (test code = kq6dui5YheFHedPApSXydtI [id number]) XkpySemn77bVB6tW72JO0jT FVcPhR0OWLbqrF2Fug8UOQf DCKsrENqR799l6iqg5etfvG phBE4KWTcUDLjP6NjSE7yKY EtqIStB01rrQTdNWT5HGQnD FCvtWKjHKXuEQK4YUBsvMDe T0bdOCDqVS5qcdguBXkfIGy aINNdxZF0FXEetOHbS9QiXI KoMXdjSSRfieh0CdNmPf2kk SJlyWbsIXtoTBUjv2uhZLBp tMDvCUV5PCqkxBEvTCZsSCC uFAu4KKIcEPwoxPAsCV4rmF hqQyfugBsgi8PrcUHrASiyI JGlTNOqPXclVRHcS7USNPKw Gnj3IUcuQcBfIQy5ZGcoJ0P KZQIcTWW2SRU5UQXkLmK0EM y0UYPFMh4gVGc1TgO2TbO8R NL2YsO6ALtehEQeUMyfFwpf QAghLXMxlGUwXHfzivM3AUF pNTcdVSRhMyFbLC0uZcVzj6 JhbCBIZWFkLCBSaWdodCBIa XAuXHBhclxmczIwXGNmMSBS ZWNlaXZlZCBmcmVzaCBsYWJ lbGVkIHdpdGggdGhlIHBhdG delxZgipQrPV9jBTEhD0Qsj 9Kyv62eukNzGrQhTPYqBOMr neefxJZexKakFLKvmW3bOZz pcMHdJLPqjNEdZKL8BlYvzJ O1VeXuuEAyViUgM05zDgByh 3JhbCBoZWFkIHdpdGggYSBq YWtqHFHkGTpizY7ljbsgO5c qPJL7pnmbQ8FuRW9vwfnqsv 7eXCPrYCHhptAzT1SrQWMmr 8DlHsRkMXEettIivU5tgYoy mW1aYpylKSl1OTeeME77dEE sDuGiWKphIQA1jNJgsPMsXT GtFOfmEIFavx89ARusi0egZ LTfXoP8l2KvoATxZK3xxlCi LWevNvCihKL4hGTxtNTlD7v wZBS6wwWgBDW4iSK3AXYuZB 4oSRRmkr1eLVCWXIVgBTKze lMvzUk7ZRFfAUY2aR9wwbOa ekApj5NlxBe2aVYaRZkoWFE cSXJkXKHeaQusu5qhMkZfYL XmwERxCssgANEqx19zXVjtw LlsoXxgPB8lxpkiarXmwfXB DJ4wtEpjQJnbuK9aDSKphDT wCPLdU8EeiJlomvwlSMPdXF lKMEtOM4ETFRinMRUoD0UxD 6BuruK4y7ctaLjjo6VglCQj NN2gaJEonI== MICROSCOPIC c5yrfERrTKCfyGK3NaKeSFL DESCRIPTION (test code em4qyz0DosHRppKDaEHgznY = 3371) SmxgBbqr03fXB9wP64CE2lV HXxXzI3BSTpjpF3Xsr3MKVp OWTjqHYnB953c7viq4jszbX rmTR9zTdnUCYfdidyUkH9DX yiHMSplakfRFx2YVzgCFDhm JH3SWYpgXLeW4RoPUEtFZ8m bop4TZI0EZceOGZrZkX9AJD ddIMhSUZynUupUZaiv616KS V1YrCyPZKjbvPooXxpyO9pH gJlQKUOBSDqf5VbKPAeAWKe cn0= Gross assessment was [facility] performed at ([facility], code = 2777) Department of Pathology, [address] [place] [address], Technical component [facility] was performed at ([facility], code = 2778) Department of Pathology, [address] [place], [place] [id number], Professional component [facility] was performed at ([facility], code = 2779) Department of Pathology, [address] [place], [place] [address], [facility] [id number] 16:40:15 Test Item Value Reference Range Interpretation Comments Case Report (test code Surgical Pathology = 104) Report Case: [id number] Authorizing Provider: Heaven Garza MD Collected: 04/07/2022 03:36 PM Ordering Location: [facility] PERIOPERATIVE Received: 04/07/2022 04:23 PM SERVICES Pathologist: Omari Lora MD Specimen: Femoral Head, Right Hip DIAGNOSIS (test code = w0eisXYjVSQed0yySNKalRW 3220) uZzEwMzNcZnRuYmpcdWMxIH tccnRmMVxlcGljOTYwMlxhb kIjYTZuyNJwT9CwsazkUMqe IC6uJC8meDdzwNOxnMVpUTP vJfDef8iua980zZTsh0vgFR LNlixkmCz3jJpaJ64tz2F7W xdxZ59ijMXxOEC4YMHsGHCv wZKbNALwMZL1RIStaTBhG1l lQKGlFM9ixlfpVKicVBsnGT LxrTZ9LONapBPvS1QsNKNhB NuvDNOgeoz2MhZpOo9tpQHl eTcyMFxwYXJkXHBsYWluXGZ wSzZwWi6MYOhkTqeTOKQlLi UED4CBXBFHMQXCOQWMLfUZZ n1EMYZRBRctxBEeUDLaMWWS OvxNNbmeOH3JVQfMXS1YQkn NP9XoVPUXBDCZNPABMXLIJK EKKRCESeHWJFVCQYKNVN2PX NRdU69KQ6hEUXIMLEHIBBNL AUxIW3XJSpooD9DhTxGBV4G VUkVccGFyICAgLSBOTyBNQU mXJ49BOlMLSOILHN1fzSYni GkfddPgBTqrr6LmDDouHVFq BG3gnVkxOMBdUK0jMXAiI3y jyM2chpx3TyJfBQUqNeJ0TC LcggJ3Mvc9BEEtGPdph3xlp 9IdUZXdTEb7rLrqKhKhTLNe k9ohbiWbWsTaBMDrAVIcMRV qcSUuU972x7imj4komsJepX O8WXKcTBW8KCfpohEbbxV0B GxrmFKhZbO8MDyfxuNkLNay vcVeipGaEys0JEWdN780OEB 2wLhbt6grNFN2LDUlULJzDx AhHz1eyILeE025JSDdKCEZF EXgsLr3SEVrdaEqsuWkfJIX l538Z485l7hkFGYiyuIjhBy Qldvtm9bqE275AIMapWTyln KnNmNuGSWzcWMrtWW3PQDsA N8afdzxAVveUEmyGQDtkxA9 EFAshOReO1ZyVTHeIV0ndnk kNGS4PXzxCBWnIRZ1NiYvWL Iah1Uuhpe5AyFkif7emk12M UE2o6AayIpdIBW1UWC9EkLg Rm8vnOHiTQYzZW7bOvFrgMQ mQLWubx10rRzoJQkfOWI0ZA JvmbGcm3Pow0mtOyAglfRvP 2qsC0QuMDIxRESkSQVmCgSk ylPac6Xgd4KuxTVhtDj8l2m xMSDdKZIybNkhr8iuXCP9KI SdlRPpG6frwO6dVWJbQY2ib rhqc2phIFxfHNuzHPZrkSN6 diA1FJIivYUsV8GrnH7bTXX oVTfaTMAxcoo2IrOdRl3oaB VyeTcyMFxzYmtwYWdlXHBnb mNvbnRccGduZGVjXHBsYWlu XHBsYWluXGYwXGZzMjRccWx cbGFuZzEwMzNcaGljaFxmMV ugKyGwMUFxSFoqW3utEmRoM gRwHbr3PCRxtMQsLIYcXvx9 FKLiyGHfYEMGqUmqcX1iECL fdUzxfD9naAR7TVNozmZnvH KLcT7tBWSBsD4yIdH1MlRvF dC6MAk4KwJeiIAzeM5= CPT Code(s) (test code d6jzmVXaHQOgtEB1IcCgGQS = 3357) bo7fak2SfyOZvpUNsYGjupF WlewZnit17cST6rP16GP8gD HFqLqZ8HUCvlqN0Tnj8WXRn JPTgfPGaD067l8mhq6jrcaE eyCC4eOsbGEHdzrbqAxW9QU weBXZaiyshOFx5RGnnHYQas DM7ORDmvLIvI4IvLJCcVT6b mvk8VUJ9AAstZNFnByB9GQG evYNyWMJfgCzpRSwyj099VY A2IlEfTRFovxGhpTrmvI3zV hDcPIZ3YPTdTQabKBkmMIBu cGFyfQ== CLINICAL HISTORY (test z2ppdBSwHHWnbPZ8KbGsSWD code = 3356) vh0hsw5SdcSSkmKVnGWndwY BmqxUxbm09vZD0zK13HF1qK FQxQpD3BIOzcvJ9Sef1UDBg YPXanBXaR957i3vwz1sczkS uuSZ1KHVjORImC3TrCI2cIQ VdyJAeC53uaMIhYGD3PZQnZ QDikINoISLxTUD9XDTwcOFe W8juKMSdKB2lwaxwKZrhRTm cMVKbvFX0PYCaaMMcP0VjNM RkCHvrPIGtmpw4BoCrJq5cr GVyeTcyMFxwYXJkXHJpMVxw bGFpblxmczIwXGNmMSBSSUd VWIFWMTEdEcJPT0SGIjMpdQ FyfQ== SPECIMEN SOURCE (test n2uxxFCiPHWyhFQ7FfBmSEE code = 3377) br1ixz8FxzFAuqDMyHVrlbL ArsvRkex25sWG1aE49QT3oV IXtSnH7WNJpshV5Rcq3MLVd FMIaqJMnC407f2zvh6agqaG vzCZ0nXrxIKDjiuhsZiD1BQ kjANYudsyqUDl2BAmtGUAti KI5EOKeqQJuL2UwKPBdUL1z flp2WIC9PRcjJFEnOfG4CPB jqHCpFKJahCfbODrzm102GY V2VdEiPPRygqApqTznzO8jK aXoBXGWQcXYYM9fmiWyYNfo GYImUUPfB8r3BBpmwB4jqDK yfQ== GROSS DESCRIPTION u4tybHCiEJOcoUF8PxYmQOS (test code = kp2pfd1AomLZbrELkKJufnK [id number]) QmneUzje67zJG8nI36AI9zL RXdCnR3JHBabiH7Gww8JKPl OGGriMHrO817k8gew2xqhiI rgLH0RZVgKGGhZ0NfHO6jNE AzdMFgF45boPBxITQ5BLXpM UWyvWUyUJNiWCG8DPHhmTPc V6sjWJNfBG2rflosICdlZLi cTFRekUL8WNLptJNcB8OpIH PvVSbiDSQbelf5VuPqFe3bj YVhfRaoGXscWTUeu5feFTMd pXApCAV9BPvqmFOaXCWlDAX bSYn8RRVvJMqppSPlAJ6heL acWwledOvdj0GvdRTmBUfdD NLnMJZaTZliYCPwR5XUGIUc Ygp5ZZfyIgCpNXr8EEelT9K MDQPeBUH4NMB9VXZjMhT8ZK k2QIFWSh5uSVh6ZnI0ZeN7U HF8AjT5QAhmfPVtNCtwTfdl LLgvAXXpkFJrJRlrbjQ9IWM vNMxxUKOiLkJmRO4uVsJex9 JhbCBIZWFkLCBSaWdodCBIa XAuXHBhclxmczIwXGNmMSBS ZWNlaXZlZCBmcmVzaCBsYWJ lbGVkIHdpdGggdGhlIHBhdG nlbxPqoiVmQM1hANJzD7Cdn 6Hkk69vdjSrZgTzXBEiVCPr djazaECccWefITHbtH8tRQc yoCObBRXthOElLSL8VkZeqP E9KnDrmJJmJdOrD55bWhXos 3JhbCBoZWFkIHdpdGggYSBq IJjcJAWhDLczfD4xpjaqG7h eVXG6jqslL8NaIY2tniukxl 7aOJJsFVAbbcSvL8QrZULgw 9BaAlXaUZTxhaSgvH2rdMkd yA7fTbwbAAc4WKhaYO87gWU aNcStLGyiDNR5kSIcqCBgXA ZwKAinKBOqzt51LZuff3ujF IOhKhJ6i0RbnNLxAM7afbTx OLweDbTpyZO0qACadPYwB8d sTLX9fcYvZCG4iOE0ZRXyOM 8vLUGhjw2qDETAOPYpHJNgo jNslZz9VMOmOCI4vG0lbsDz xmKka3GnsRa2iMYdHNcvZTN yOIGrHFLljFnmc1bgLnUeUD XbhEDlMsjjINBkg67rAYfwo BcgfEgmAJ7jvfjqrkOmpdZG EQ6lhOrvEBcetD0bYTKkyFD jLZOaG8StrUbbneuyNLGgTX xHEIlQE4EXUByrIKTsT4QlQ 2TvaaM5y5hqkTriv8RsaVVw QF5bhQJcxP== MICROSCOPIC i1kxiYElHQNecNE7CrQcGOC DESCRIPTION (test code vw2cqd0QwmUPfuGAgHUoovN = 3371) VxlqPjqk24lLC2kE00EC6oK BPxZpP1ROHqmiO3Ojm6PHQj YIIrrGSkG076y7wpl0kfjpK mmMB6nTsyFRQmemxoQrH3SO zkKOGscpnyELo4YHktFBGgc TA1QEBasJBeF1HoLBMnSB4x vyx2OCU3HNxwZZBgBkX6AKH ghAJgQDVruVmoCGjoz952NM T0GwUdFPEuyfBjoTyllE6pA vLoYHFMAAPzm1PiDKNaQAVg cn0= Gross assessment was [facility] performed at ([facility], code = 2777) Department of Pathology, [address] [place] [id number], Technical component [facility] was performed at ([facility], code = 2778) Department of Pathology, [address] [place] [id number], Professional component [facility] was performed at ([facility], code = 2779) Department of Pathology, [address] [place] [address], [id number] 16:40:15 Test Item Value Reference Range Interpretation Comments Case Report (test code Surgical Pathology = 104) Report Case: [id number] Authorizing Provider: Heaven Garza MD Collected: 04/07/2022 03:36 PM Ordering Location: [facility] Received: 04/07/2022 04:23 PM SERVICES Pathologist: Omari Lora MD Specimen: Femoral Head, Right Hip DIAGNOSIS (test code = [id number] 3220) uZzEwMzNcZnRuYmpcdWMxIH tccnRmMVxlcGljOTYwMlxhb rVhHYGtzOOmY8OhycnfUOqh KS5bOO1uhSeakTAdzRZlMCX tPdZew4idt032wWQtc9syKQ PHqqyyyQz8mRwaQ87pu0F3D ugxP81asDPlTEB2RPQfCIFg tIJyLHHrBLP7MKWwkPOyA8m tYXWoJG6wetyqPZlaCQorMI QbnXC5ACVovLRhX0StAWDhT YqkBJYgshj6SjWhPr7wlXGi eTcyMFxwYXJkXHBsYWluXGZ bKfXmGl1ZLOaeAiiVXFMgYu VKF4NGJVDIIADNWDSRYtYOC t7TZTBYDDaykYNaUQLmCASD RcfMTzffOS1HKQcSWI5ILfu DD4GzKLPRKDHHJWOJCKZWXM OSAYHWMvAYDFYWINEUVQ0ZB RKyR43OB0vQUEFBASOXZOVC TNoOC6OJTxphW3CmRsTMP7T VUkVccGFyICAgLSBOTyBNQU fGC04YQyVWIZDDLJ5svAGfo XjvfxXqQOukl6GwXQzaCZBq YF4diDciJKCxKP3zNNHnG8o qkA1lwji9UqVqMGBuGtI4TM LeqxO1Ceu5WGIwCDbpn1rzx 5GwFDIkCWk8gRoeXaMkYLXd y9mtmwCaRePhRFXsVZTmBBZ paWTrJ987n8eir0rkpwGklG H9KYNrASO0DOsogcVwmeM5G SlbnNQiJiF4IXjvtjSoSWbe akVbxtLkJwu7HPBeG144RSY 7kDbcc7xyPLC6YXWyQASqLu YsQb3dmGHaV942MCSlAQSHT WWxrNj7OUDosjXtzeRxaULH o241Y991e1voVQPfieWsyNz Ktznei0kjB738ULZrdAKsst KmFdUqMQYlpQRdqOK8BJFiN D8ecsmbDHmbADseYZPpslZ8 OZZezJAlE2SkNXFtHE9hrhw mZRO7JJcsCXFgLUT1RbYxHF Cog1Lbnee6EbOize1irn51J ZQ7n7GueRmlVCK0TKE2JsGa Fu7otANrJMFwPY2nIaUeeEE kUXVbkd80gCqmSSevPNW0SY CsxiGbm7Hng2ugXkYkvaQzQ 3pjH3XjEOQvMBRzADWbMhCp waSoj5Wbf4WjhOBzdAd5j6b tTCQcTNGqhXuin8hoBGJ4WB UlxJQfU1faoZ7mUFUcBN8qh awbo4pjFRwxNVhpHNKcwGW1 zhA6UQFczMIvQ0LjpF9yYGS tFKbySLEoxbh6XjGwBv0zgS VyeTcyMFxzYmtwYWdlXHBnb mNvbnRccGduZGVjXHBsYWlu XHBsYWluXGYwXGZzMjRccWx cbGFuZzEwMzNcaGljaFxmMV tsHpRkSEYvNHmbA8cfCpPjH pDuAoq3WJQewXZsBOPiSrs6 RTAekMEzNBAAfFwltK0kSCB tkFvaeF8ciEL0SOItbeNtwV HQnT9vCAMVhT5rRjN8FwMmN pS9VJp1GfDtuNGqvH9= CPT Code(s) (test code x2gdpVNfCMQhsMG1HrJrSMH = 3357) tz1cjc3JxfKXlhRLjIInpuC ZvyjRfkl93cNV5vW81QG0dV DDnKuC7BPXexjG7Zxy5LTOn TEItqHEzV542e6zxb8hdaiX elNX3fTsnEJUbeopmHkU4RT wbGEHzfhzlLQp3PBkaNLQlr BJ3FVElnNHlI3YeQNBqRR7u bop3ODV7JJurYSTtSuC3DDB reCAwDNMtrWyyCDlrz430FF C2ZiYhOJDoosCzrVtsjD0xE zCiGZH6OEKvRLfzFWpmYILd cGFyfQ== CLINICAL HISTORY (test v1twlEYtZBPbkRV5BwOrPDK code = 3356) uk0bqt2IrqZWtbQJmQEsjtJ ActoQbxm96qZC6aU55ZH5sL LXrQjG5JSAbtoM3Yts9QWQv ZGGqsVUaY103y2sek6epnkJ trLA7CBHfCWYaX6SeRE6yQM OcdGBhA63jlQQiDZH6XYEtO VYmxNFdORGlOMV5BHMpcHOh C9zjGOFlYE7kpcmmFFzmLRp yMNPgrCJ7LACrnKMtZ4YsUB ZrIJcgQBEhqfc4GtVnAk8co GVyeTcyMFxwYXJkXHJpMVxw bGFpblxmczIwXGNmMSBSSUd DSDGHNJZaFqPRK9THKoCtmU FyfQ== SPECIMEN SOURCE (test o1wmkUQqWINttAZ5XgByTMN code = 3377) eo3rea8EkwMBasQCiRHycyM WpuyQtrd65yGI6fX07GM9lY PTtGiI5YHTmloM4Zob4PERx NWQwkJWqV055r2anh5vmpsI ggSF9zCtkXIRhebllHeO9JT joYWMoilapANv8EVzeWFScx TF2GMNzyUYqL8YvTOGdHP6q bsx7UDI9SHddKZAyReH9YRS uyJAtORLkyTdiOBnok816LI N5XyVrXSKdysUfxKhwkN9mK aUhUQWZCoJUJG1cunXrKCgj HYYeFDEfY2t1DQrdyB6zeIV yfQ== GROSS DESCRIPTION z6kjrTBoZKRfaQO9UkQnEHZ (test code = en8ryk0StiNQoqAMgVAxltT [id number]) RyyxIysm90hGS3tR86FK0mY SDuViK7HLPkozX9Nwn7TNHq ELAvxHIbT663b9ppr5kwuzD kwOF3NFUzRLErA2PkHP2sOJ QfuXPnS47ldMWfJFG0LNRyU MXjnAXaMUDeRPV9AMHcyTYn I7gfGYSmIS3btayoFNihQGy dOREkkTI2KKDsaOEmY5AhMF HpRZoeCXJwcfq1NzXtHl8yv DImpCkkCOwpXPIul2uwVXOc lYAsMFB8EQojnUQlKKLzUDG yOSr6DVMdVByfeZZyFI6ioP lmSxgkkFhcs3KtjCLyNOneJ LXlZYSfKOcpMMBkD1FXUXZp Cix3IYseViQoXLq5HVjyY2U GOBNxEPM0IIY9FSXsHmB7VI l9VGPNCw2zJCu3AjQ8BzU1C AQ3OeN5BBoroRDbBKsvSvdb ESdpOIIhyJUmAGgvxrT6UWB jYJlaBPLxJuQkCF1nHwTwt4 JhbCBIZWFkLCBSaWdodCBIa XAuXHBhclxmczIwXGNmMSBS ZWNlaXZlZCBmcmVzaCBsYWJ lbGVkIHdpdGggdGhlIHBhdG mbquSvzcUfQF1fDBAjU4Jbs 0Szq84exbZuFtCjHUUhQZLp izgrgMKqlTclWGQxsC1iNAj rxDBeULVlnSGlJYM6QaXjdY D8ZdGywBNsPqNiJ66nLhVin 3JhbCBoZWFkIHdpdGggYSBq VWuaMUUxJCbxbD6uuchwO2y rVMJ8lzsfU7KwXC1ahzauar 0dGEOyWYEosySoG5XkOUBtg 0HxQqBeJGGrmqAroB7llNwy dN2vKrulJAq7BKjxOR50sGK rFoWbLBgyBMO4hHHrgERtUI XoCCckECRant01NGkls9gzH ENlJnM0e1EqnCZdAI8jhyEe DLgaXtSwmUL8jESdpATzO5g nNRN4uyHrMAE4hDW1BTSbPZ 3nAAOxtb4eRCLCZIHuUGCkq zGrfRi6UHAdEGU1wX5tzoOr hoNqw2MxgZy3dWZaWQouBWS nRPPdYXBfaSqbj7ncTkVzVI NzmCXbAucyYYLri57bRXlws AieiWqrWU2lxnkhltRstsUB WV6qtDztIWzyoR6jXJEzhMP bZOKdS9InrTheoktnWMWhSQ oGKLqNO4KIUGjuLEEuE5NwJ 8KirjL9o3djmVwjn8FnkWYd AP4lqCCypX== MICROSCOPIC w1uqiTBbJAIkxWN3HnRaWBT DESCRIPTION (test code hz7jyo7ZzvRAfsYEjGEboeT = 3371) QznqHbsn61eZH5nQ63ZL9qS XOqAyX0HZOvtzO0Ldt0TCQx IFBwaSRzK668l0kwj7luyaG knAG9fAtnPFPeqsosByK8CN ihFBZbicfeIUe6YEvsJPLcu DV6GMGzkPEbE2TwQMRgTJ8f phm0JPU7UWolJFQaNsB4CVY ebBZgHPIczUocPUhmm947ZZ T5VuOaUMHlfaZhvNzepE3wR mWePFNGLICgg5ReRNOrNSGw cn0= Gross assessment was [facility] performed at ([facility], code = 2777) Department of Pathology, [address] [place] [address], Technical component [facility] was performed at ([facility], code = 2778) Department of Pathology, [address] [place] [address], Professional component [facility] was performed at ([facility], code = 2779) Department of Pathology, [address] [place], [place] [address], [id number] 16:40:15 Test Item Value Reference Range Interpretation Comments Case Report (test code Surgical Pathology = 104) Report Case: [id number] Authorizing Provider: Heaven Garza MD Collected: 04/07/2022 03:36 PM Ordering Location: [facility] Received: 04/07/2022 04:23 PM SERVICES Pathologist: Omari Lora MD Specimen: Femoral Head, Right Hip DIAGNOSIS (test code = [id number] 3220) uZzEwMzNcZnRuYmpcdWMxIH tccnRmMVxlcGljOTYwMlxhb sKvREPopXKnX8LirqziGGyw VR0tWX0epKfloUAjwUJxXTM nTxHmm1vua002kJHfw0hsDU ZFrqmyaUj8rXukG28vp7Y3J uouZ86flKYyDJT2UUZdWLLb lOOvHZJbEGD4DRKzvGVcR6f lKWXnGY2bknldNJinBSdgBO NguTR5MGWoyBLhI5NaADFyB NpcRYCymwy8SbQzEt9lwWPo eTcyMFxwYXJkXHBsYWluXGZ hAuRjTn0JRFsvQzmRKBRzSa LKK2IAGKAFJERWSECARdAPT f6WBETSNJvclMKkMCGsQQNG HzgYXahzCI6ZSRuRLT2EAic SF2XwXGWRFVVTZOYGXKUXDK NPFPURJwGYBYFGPEWBKT4YT OKmZ32NT4oQNTHOODAAWXRV LPjZW4SGKnswU5OxLwXZJ6N VUkVccGFyICAgLSBOTyBNQU dTQ14NNfRCEOUITZ2pkNDut XsjrqFyJNuer4IcHQdwJMUs EM9chJkgHMNwXS3nMEZdP7p vgH9cvpt4QbIfJXJzCgT6OW AynzD1Jms3SPGvQCaji3esw 1QsJZBcLVa3dOdqBoFyVIPs f6crovBwNgZxVRQvEDEbGNZ ttOQaD723y5eeb1txjcQhpB U0AFBuTIH2IKvqwvXgicX5V NhznWZzWmC0CJgguoPpBPde apFyanPsOxs0TCKoK019KPO 1eEbhv5xqTEO0JBEjMHCvLm EjNr6lqEJeT979GDDgWWZSV BRzzYu1ISZbvlDnzkMqyJDL c994L092r5yoFJBnfvEepCh Znmudz0elL808NLMfrXEkoi GtHvKmHMUejPLtuZV5FLLcR T8upjeeBJjmQBbrXGDujvW6 QUHexPWgN1HkLZBiZA0mdmm xQDN9ROjpYNLuWOO8IbJvEC Xub9Gkomb7YfDhxr2qit98Y HW7a9RauSznRQA3NGE2FnTg Ik2krHIdRDGfKQ9kCkTdiZB pGQZjjh01cXtjAPjeQQP5WW UqjyPmd2Xqi1qkTgJjavExX 0atB5ReUVXzDDHhXLJtNlHd qtRnl4Akw5EexICejHy5y6h wRCFhLEGocIctf8jdDRV9DJ QmqUCiI3ggyP0dRSCxPX2vu mozf6hvURjdCOoqZSPkbEI2 zgC6ZCHbwQXkU7HdfS5uPWH jEQknBGCatsg9PzUcGy0uiF VyeTcyMFxzYmtwYWdlXHBnb mNvbnRccGduZGVjXHBsYWlu XHBsYWluXGYwXGZzMjRccWx cbGFuZzEwMzNcaGljaFxmMV ryCwMiUJRgXTrkL0cbIrPvB eVqEdi7YSAqmCUoYVRrSwl0 FCAvkALmRMOZiQnneZ1aABI njXucgG8ynCV4QHUtaeSbkV CJcT7qEAUDbD1qNsP3MiChT nZ2QRo5FjAvwRNiiN3= CPT Code(s) (test code j8trjCAdFEYttDA2PqQjMTY = 3357) ca6ihy4JodZKjsAOsFFwaiY WoprRhxf75vJQ4eX16JG5bR IHjPjG9KLCwokT4Kir9KUVp RDJtuCUjN548z2sdi2viwaH qxZY5wNhrEFGcouwjWvF4LL wwDZTdgguxJKz5XMbhWJWix MR5IRWtoZLbK8JqQQXkWI9j dpl6XLF0TKtqUEXdFbD9BUU ihENiSYFzyZhrXGtdx070YD I5BtXeDMAbbeCppKuolM2pE sGnEYI8MBXzYEpkWFsuESUf cGFyfQ== CLINICAL HISTORY (test o3rhmYUcMSTfpCL5IcEwXIB code = 3356) bv8faw7ZtzBBmuNEdHGcvhQ QmbkEtot53mCH2lF69YK6tP IJkImN8XNGqsjW8Rna2VFOe JTWzuIJbY477n5ygu3vcqrU jwZW1FQQjZMIqP7YeFU3tVF GwrYDtZ33fqRNkTKE4VDVmX YNodYYtBLZuFCK5RWXgaTCt N1oxBYHwKF9dpunsPJyrOWi wAIVseYE3FXNwaPRmA6RpEE QbWYvhZKWqvpz8BaOlIa2vh GVyeTcyMFxwYXJkXHJpMVxw bGFpblxmczIwXGNmMSBSSUd LWWVRMRLbIpBLI1EOXsOpoR FyfQ== SPECIMEN SOURCE (test a7gjuSAhTMUwfQH7FqPyWRP code = 3377) ac2lda7BddSKtdIXiBSzzjY LtqiUrib72xUK2dN92CJ2tS MAnQhA8ZLGlrhC3Luk9INUm AYEmxJYtB286y6vbr8ehrmO cySW0dGyhLQGknxocZlV6EE zqOCZrdsouSUu9BCkgTWBhh VX7LEBvtQWrJ2EaTKJiXF9c kcn4NXA0NGkzRALyRsD4YEN azKNtMJGyzPibNIosj586ZD V7GmLoIEJkwnVvhVaedR6dR zFiRQELOaPLQL7ghwYeIDll JLIrUWGiV2g4WNsbqN3whKZ yfQ== GROSS DESCRIPTION w9jdwIIhXKMdvXN8NxYiDAJ (test code = gw5kta9VapRPxhHJsCTojfM [id number]) EllqOzdy68uJY4eP21PG4tA ZBgLzB0AOVwvaT2Uhl1RQRq KYPxoDKeZ305f0fng9onwkI tiFS4FHDgARYiR9LyMK2lQU OfbQUyH66ktNZpUSY4OJBcN XCcyFGhJNEfHAX9LIWtzOUw J3jhWQRoNG0sinbvEBslOOm aMAOgtQW4RLPpwRIgE5NmIN OaPOdcJKWyftp6MoMhEl2nm QLbvBjcWGcgYUDch0vvXSLy oPMvVAI3TPyxuRUxHCQwJUN jSQa6XLKzVJtdoTFxFN4nrY cwRmlqyNqoi2OxbOQeKXemQ LDcUWLqPMjmKUTjM4DYBXBt Uvc9FMpyGrPnSSe8CNsoN2X CERPlWCW7YKV0TCMpAwB5BH e5UBEFGf1aCHu8GdU5GvO6A EO8YjF4XAcvuNYqXLdzZlvv TFdbBPKefICcPTjuawE0CUC yWOaqKXVgWaGiCO4vHaOgx7 JhbCBIZWFkLCBSaWdodCBIa XAuXHBhclxmczIwXGNmMSBS ZWNlaXZlZCBmcmVzaCBsYWJ lbGVkIHdpdGggdGhlIHBhdG vnxcJaztMiKW6wOIDhN6Too 5Vra88xwpHuXvVzRSThCOTz popauVZsfEzwIKOcoG9jAKs suKTmOSFeiECoRUP3PoKdtW T0NbMwzWOjBkVoV19pOrMta 3JhbCBoZWFkIHdpdGggYSBq NWxaXVGxPWbrzU1brfgoN0r nKWW3niuiF5DfAL2jgcoqcm 3aUHRtIACeuyQuT2CxSXEws 7CgCuWoRTOvidKqzK2giFue xH2lNngaXZk2UXqyRW26dKX cNmAvIUxyZNC2eLFtyPNvMC KlQQjyAULxbh18GFwrq7rzU HDjBpS1k0DylCMjLO7tzfXb GQxqMnGtkTR2vJSolQBwA7q vZKJ5dpSrIPS0wGU4RBRdCR 6hQLBogh8kIMCONNAqCZOgj xWadMd1SICfYZS4nO1bdcJd wwUth5QqdJp8mWBsPPgdXGB bELXfIBOasIyoc7ypOxCuIR WgjJKkTueyVPDds29fAEktl ZjbmMwkCF9ajcshffBbntCY FW2xvQviEVvoyU0xFNGvtQT wTZQgX7IxoQectlsxZQOsLR dXKSoQY7NWQSrwSWYeS0QcB 0JjumJ1d3ybiKsrx7AfeSFi ZG7tyBHfzY== MICROSCOPIC g3wgoAYsZOPxzQK0UfJsFLV DESCRIPTION (test code cr6imn8SixCFdhBHoMBcwiN = 3371) GcahNfrm01uHW5xO82FV4vB FBbEmM4NNVkalE5Idq1ZEDu VXHyfJIvD212f5kte7nzkmI eqPB1jNdzDVUtkpzbVsW4UA wkZPSlqomwSSu7QDmgWOTya OO5AXAkrQFtH7PcUEIrGT1c xfx2UMP0AYjwXCDlMiS1VKO yxOAqOEEoqYvuFKqwb754JL X7EhEmWYIzrkNtqXbgdL7hJ eIwHUBZAIXml6OkVJBuJEHz cn0= Gross assessment was [facility] performed at ([facility], code = 2777) Department of Pathology, [address] [place] [address], Technical component [facility] was performed at ([facility], code = 2778) Department of Pathology, [address] [place] [address], Professional component [facility] was performed at ([facility], code = 2779) Department of Pathology, [address] [place] [address], [facility] [id number] 16:40:15 Test Item Value Reference Range Interpretation Comments Case Report (test code Surgical Pathology = 104) Report Case: [id number] Authorizing Provider: Heaven Garza MD Collected: 04/07/2022 03:36 PM Ordering Location: [facility] Received: 04/07/2022 04:23 PM SERVICES Pathologist: Omari Lora MD Specimen: Femoral Head, Right Hip DIAGNOSIS (test code = [id number] 3220) uZzEwMzNcZnRuYmpcdWMxIH tccnRmMVxlcGljOTYwMlxhb nPaYGJtyIQvK9AmzebmTHkp FK0oNC2jwXwawGXvsEZiTGA iOeXet8zul382dUBqi9jhMR SSdziorQz8aZpyN19ff9W3W dniO68qbKWvTBV6FKEhARMf cXZoKBKgCEI6MJVxeEZjG4a oCSUoXZ6vdrdkACupTMeaKD RabNR9HPTmnIKiD0PgUBCgM BqeJBVkupk0QhBuAi4prHHv eTcyMFxwYXJkXHBsYWluXGZ aYjOkLc2AMNjrFtdXBVLzVz BDG6NZIACWHIUFHOLRSmGBC e9CBTTDXJvnfFSmBNJqNJZY VppTYdlnJB2NBEjDJF9ZJze ZZ5BjKSWGJXMVRENPCQSJMG DLBQRQWmHDCGXMIGSLIF6GM PVkB87XL3tNKDIWLHMHYIFF JFnKK8UURvipI5SoCaPJI8D VUkVccGFyICAgLSBOTyBNQU wFY94TWkRJTPVRBJ3ryGAvw MbcbnPfFXalm0PeWXbrFCVi NJ7odAgzPBCmLA7rBPLbQ8n jsO2fijh8VqZcULUuOkN5UE RrlaD9Yki5QCInRRkpg5uts 8JlHFGtBEl5iEbnXgBdTIDq y9odtjJwIaLbENNkKIVdMBS flLSkD267b6cnh6baygWgcG X8YTTeHIS6WSxpahBjvwN3I GfmrXFcZsW8CVcettXwVJqn nvEmpcLxYem8IIBbY764LSQ 5qNrtr0uvFZU9MRQrCRMoBc ZjVz3nyOZeM761NORiGTSEE LFxbYq4MEKojgAtniBwtTXB j852W701j9ecPKWxydGhbEs Bwifzv5tvW302OIYieOBqnu AzZwYmHGPmuUXgyYA6OVSsV H0ixwexINpvCSztMXLcmfU4 FWYgiETyV8UyVNKzMC4zmyi oHOZ7IPpdRCTsJZG9JcPqGO Cvg5Yiutb6TqKqil5loi77J WV1h2CszOqvKJD5FEH2ZzHq Gh4vtXDeWLCzQW3yGaJeqRB lMHIvgx93iEesQTsqOMI1AV KngmYzy9Nut6omQeLayaHvE 4gzK9BkEGKnDLXeHXJuEaNz jlLhg4Ekm7HdnHAazOh0k1s fWDHzCEBpyIhnw4mlPPR8XP QruFRwH3gncI2tWFPnUH7eq ingn4fnNZrlTUtuVPDlxXX1 zfM3OVIlgWKmS4HysJ5hYOV xKVtrWQRapkw9VcQeZx8qeM VyeTcyMFxzYmtwYWdlXHBnb mNvbnRccGduZGVjXHBsYWlu XHBsYWluXGYwXGZzMjRccWx cbGFuZzEwMzNcaGljaFxmMV srZfBaIKYhLHhsJ2weVxSlX kUwOeq6WNRslBKpCAElEjh4 QMEeuLQhQCRHlCnzwY3xFHM fbUpppU7yyGV6DLCelbSmtM DHoO9oQSRNiS8zFiI3JlThI jN9HCd0TaLtmDIqvS2= CPT Code(s) (test code u2vinKPfXQNswHY0ZgOzDHR = 3357) wx4nqm4RjyGMjnDGbCJmklY MefjXuts98kZG8yV65AL8bI SLkYkT7PSPaspW5Ubl9MCQf IHJphHSrS671u1dwc0fgycB zfUI0rFxkUDXaixfzPkE1ZA wuWHDiahjsGMd2LXqnTHWzn YP4UBKkkMZlP2AcMHJgWX7g msx0OBH8XDroONTsBiC7EYU rhLAvOLOjaRqgBRcex571MO F6DaScJHVhrzGvnOhodS5jB zNnIZM1CVKrCZuwWPggKPLz cGFyfQ== CLINICAL HISTORY (test l4fooJAzCQUfhHQ1CoTkRVC code = 3356) ii4qdz7CjzKPdoJCnNNuqwL LwlhTgps18hHT6yX91QY0mV IDvRqF4DWWvzcT5Vav6NVLm TTEbeMTjJ565o8qda8zstyM hjYS5MJNjZMGhC5CcMD0rDD BowXRtL09uvZAcNRO8GKJyH JVsqDIuGNMpLSZ6FGGbgPZg M8lqYMLfNJ7pwereFOliVDd oGUZdeNB9QYKkxUNeP3HcBB KtACffXAZoqvg6CdWlTc9nn GVyeTcyMFxwYXJkXHJpMVxw bGFpblxmczIwXGNmMSBSSUd HOFHHNAMiVyVAR3JYRoNojF FyfQ== SPECIMEN SOURCE (test q0pwsFEtZMZpvJH6AwVzSUU code = 3377) un7ewl4YejHRhdLVkMPyhxZ JfbxVjuo93uEZ5bA19JF0yK ZTwTgF2SCPseeJ2Kwm5FQPh DTSmmEVhO501i9prw4sgdiF qmBQ9wXgjXIEzepqrYxB2IO kuTSXajvspPZr2QPohNPYbs CT9VDAdyREvT8WlJYKpAW3g wld5BPC3QAtlYPWhUoX2JRG ufCWsQFKvrUifIFmty437DJ W3CxHbETEotiJqsPygdU8dH iIjUZNXRmXNMM6vfyApTEmc JFHySKDqM2z4YFrzlW8dsKY yfQ== GROSS DESCRIPTION b2tewFNhPNUahGX6LiLdUEN (test code = or9dgm9ZoxWLluAQoKVceaS [id number]) LomaFtzn43jEO7mN38XY3cT GJeDoB1IFPgpsQ6Zsq8USAo XRJscUFzR433j8doe0xlujX vfMQ2IIUfBRLaT3UtZJ2iLW IhuKHaH06kmGCwUFU0ZRFnY VOjkAUnCFYwXLE3SPGpeNOl I4sjIFBiJR7iqcxrLDqjIOr vBHMlkXE6JHVsfAHxC7FeMJ XlXXkeSJDvhbm5RoQyTe1en GSrkVcjQRctISRcd6rkQZRp mPWnLUJ8IFrrpHRmJTJhSLR yMAw7LBNuJBbbmRXuCF7dgN udJfjipMxdo3UmhIBdIZykM XAyUHRuGCvsAAMaN4EGQMVr Drq8KTwtLgXbUFs7CRxpG2Q GMGGzZJL2FDI5FYAfAgQ2NI l5RUAJNd4aIGm8NgH9AdD3V XH9YmE4TFtuhKXaUBhsGrzr EEwaGNBgiAFvXFlulcY0ZXU nGIieVYCqCmRaHH4ePvDkj2 JhbCBIZWFkLCBSaWdodCBIa XAuXHBhclxmczIwXGNmMSBS ZWNlaXZlZCBmcmVzaCBsYWJ lbGVkIHdpdGggdGhlIHBhdG walhDvkoHqTC8dRNZsN7Nwx 8Stj77zqjEbQiXsLOMgITLg pkexjWFxyLzrNWVjrQ1oMVq gmDIoLGEhtPJcEGH9XhByaR A6BrQmcIHoTwKdA33wSsCtr 3JhbCBoZWFkIHdpdGggYSBq AHyjNLRtLLtliR9ufuarS1n bKAA9jhzuU6NtVX6nezpjtk 0tUFEmXUAzaxIfN0ExVLGma 6FtOsQtJGLaeiEuyH2seFgg nX4gMsomHYm7TYhjNY88dNJ aUtMqAXfpCFA8lETruZFmCA DnUVgiQZEamu98ESrqq8ulM CEpCoP3q3LwjURoRP8yjvHl GYweDeBlnQH1nJFuuRVjD3h tFDL9ftQaBOF1nSJ8WNKkLW 8sWFVgze8uYZLZFLDkEPKeg eUzjTb1YDUqZKL4nK3jmuMo gbDkn1FvwKu3hTQkPMawMOF fWVChIDMbcJzfg1pvZmJrMH UinSFzCyqbLSYok46zYYzwk PmdnItpJE7bnwxfkpJponSC MD5djHlpYBynrS5aMJVucIS zKPNkB8DzsWupwhpaJOGxPG dZDFbGW9FRUJjtMTRwG9BfQ 5DinjM9c5reeWfyt5IqcQQr XE9bkKDvwQ== MICROSCOPIC p7ouhKByCPQubMQ3YvEdONB DESCRIPTION (test code qn0rjl5KcvRBuhDTjZPuoaO = 3371) QzsxMkao92pJY6bQ88JQ4pB KNrSvR3ZDRultS7Zem8SAIi BKDmqXDiM714f8hag4azxbT rxSU9bTlrDRFmswrhHxG7HH aaYYOmsisdUDl7MDkoVMQmb UW0XWNxmCZhH0BpIXRpBK4d dln1MCD6FUnmVEVkOpM7ZCO ejXTlDFKykUrnCUnea511NS L2YxBxINLvicDhzFwjgJ5iG vNnNEFUBADbu7BnCHKzLGGr cn0= Gross assessment was [facility] performed at ([facility], code = 2777) Department of Pathology, [address] [place] [address], [place] [address], Technical component [facility] was performed at ([facility], code = 2778) Department of Pathology, [address] [place] [address], Professional component [facility] was performed at ([facility], code = 2779) Department of Pathology, [address] [place] [address], [facility] [id number] 16:40:15 Test Item Value Reference Range Interpretation Comments Case Report (test code Surgical Pathology = 104) Report Case: [id number] Authorizing Provider: Heaven Garza MD Collected: 04/07/2022 03:36 PM Ordering Location: [facility] Received: 04/07/2022 04:23 PM SERVICES Pathologist: Omari Lora MD Specimen: Femoral Head, Right Hip DIAGNOSIS (test code = e5neoISiPLEvg8anVWIhwSH 3220) uZzEwMzNcZnRuYmpcdWMxIH tccnRmMVxlcGljOTYwMlxhb lPuEUHseIUaJ1CzrzdgWYya JM9yDL3vgDcnpAIerNAaLRQ lPfWmu5wfl589kZTod6apZW PSwnjfsKe2eRmiB00cs4F1L igrF78kyALxLCD4MWPvCSPx hYXdTTFvAYK4KVHmdUCuX2j gVEViAK1xakpoDZjkMNbzGF CurWX0KAUqhVSxK5PnNBZeQ XylTIKhgzj6SiIkAo5ohNXs eTcyMFxwYXJkXHBsYWluXGZ lCkAuPn1JEAxdVfbYSAYsPt MOM3FGRGUTQKWJBXIBTxMXO h0UWYXLHYqktLTjXRDjCVXD KqiQNgrhZT7TETiRUY5AIkw QO2BqVBZSZPQXLXUUAVSXMU HSVLDEEqNBXRGSCSCEXS9UI DRpH10LH7gREYYGOXCXQHYL VZtGO8QPFixeL4ZnBbBCZ7Q VUkVccGFyICAgLSBOTyBNQU iQZ33QZnEJBGTGNN5oiCZcx RxoscCoZIipk8JcHZjsRGSc ZS0vjBfnNLZoOU7mADNeK7m xdY2tmvk4IwScCTBkIoG8AZ HuthN2Jwj5XXSrUHdpj4ihw 3JgZXUgNMe7fEmpTqYnDDVe p3wlcgIhVnEyCLQuMXCnAVZ slQYiK036r2tdf0umzgCllC N2QKXcIRY7AJidiwGzmeI4J RhryQMwLoG8FColknUgEXxs fySnscMfWys4LXHgV068SCF 4cMtpi7ipPKI8RZAcWTXxKt RwIa8iuWBwP761EBGjXQGXZ TFsgIx0GDYmgmBkzhWvvRET g746B079v2waPIXqpvKdcNm Irxzvs8psB936WANsvLYxxr HsWrGhOWZtpWWuxSP4UJNvK V9pltnrMEaeUPokWEIailO2 JBWddDKgF5LeZLXfKB2cmjv vCWE0VXxzLWBdNQP3FhKpAD Hre1Vhlpg9MnHtoc4lib54R YK4z1OxlXsqKSU6WCB2FaHs Ly7fgYPsJHEnVR2hEgAesAJ aHSZoxq23oHfhWCpvNLH4IK LtsnOwr7Fqo3wuQuWganBmW 8pvX5CnHLFtZFRbEBFhLuEe spYta6Ofn5XbeTMgdPp5u6x oTMMsCRDknIcxh5uuTZO1HD NefLSwC6eioL3iKRXyTH9dw ltkg6osJEkdIVhnESLguFT1 deW7BMEaxJMmD1KjbN1rJAL uRQuwSUNaqgn3QhAkJq7wgX VyeTcyMFxzYmtwYWdlXHBnb mNvbnRccGduZGVjXHBsYWlu XHBsYWluXGYwXGZzMjRccWx cbGFuZzEwMzNcaGljaFxmMV eoNcHaWHQmPPwuW1qkBvBvJ dAjLno6ZWMruPPsGPGnDbf9 JHXbsJGgMWLBzIqauG0lQHI ydIbarO6fxWA4ACFgkfNqfE UHtA3gBYNSpO6wGoR8EhKvS cC9WAk8LhQrpENhsO9= CPT Code(s) (test code j5zlsADuRDOprMF7IdWaACX = 3357) dc6lla7IrhCAdvHWpMVjjpG BxyfSkxu00sAJ8rD09KM1jL BZbNkU7GPHxfcF9Ass3IDTl MYVcfNOtJ848d9iko1yotzA fnAV1rXdvQCZetqmuHcG4EF qyCBSnlsdmXAu9XTgjVMKld ME6ACBgzDMnQ9TyNWHqKX7i tit1JUJ4INusROGzVnS3KPE onFZdDHUbdDxfZQrcr852FD B9FnQwEGJljzYwdPzobM7pV kCgQTE4DVInPPmvGNqyFXKt cGFyfQ== CLINICAL HISTORY (test k3dilYInBIYtbNB9OrVnBGB code = 3356) yh8hwz6FexSQjjUJxPDevjH FnwnMcfg95qKQ9eQ14NN0sJ BVzJlS1WZZufuR9Ays1SBTh PZBmzNGoW914p1qzh1kbhtC dgVX8NBJnSSEqZ0PjWF3jNY QwsCAbI43izRVgIEZ7DFXpT LHnjAUyXOLlHIJ7DGAleVMp J9fgMYUsVR5hvnwhJBakHWs sSIKdnOB3GMGxdNPjC7JjDF KvKKbuNYTkcwz0ZcQuPt2mj GVyeTcyMFxwYXJkXHJpMVxw bGFpblxmczIwXGNmMSBSSUd HOSYJHEFiDdKAO4ILAgXkiN FyfQ== SPECIMEN SOURCE (test j0sgyMWsORIpvPM7BaJbUAW code = 3377) tp2ire9SasWIiaLIgEPxqyZ HaenZjvs99fNL3kY45LF4yY VRaFtI1IIJjgaW9Zee0GQQe SJEbyWZrN384q2ojw2hrlwB iuMH4rStxQMEodyfzStO0UA lnRGCdllfjMVy3CAwpHCAib RT9CTXpxCBuB5EeDSLzQY0k lvh3ONX3RRqxYGTmHvV2RUS ajSQtUQKyqGlnRYvsp299FX P6YyMsXUJuzhIoiUzqcA4kD kBgSTUIDkLOXH6gobQqYIbu OOVzQUWjR9x5HVowaM0ugCK yfQ== GROSS DESCRIPTION j0phgAPkTEWymBS5KuOxSTK (test code = li8mok2OwoATqoGCmIZpgtD [id number]) CwywBjfu04dOY7oC78KF6mD PGzKuM4JAQhlhV7Pfh1RTXa BUYdvAFrO864o2wjv9fraxX sbTU7OZSqXUElC1OpLE0gCG ZafMDsS78lkIDcKFN8BGCfA XXtwTMkEHAwFIQ3HPYyvBEj U0baLMYlBH4youhtUEzeGAw lUYRvgNN5MFUbaFLhE6GwNB KfAHiwLVPbeje5VpVjUm2er ZMrpRxvPDueORWpp8anCXOl aITpOUF6KRmdxKFtSFVtVXQ wMYs2NIFkFUeprJYdQG3ttN vuSnzyiVtfg3CgvNUfJRdeQ SKfMIXlQYwhTLTmE8DUWTSh Hoo1YTlpYkSwQCl3IVhyE8F CFCToQZJ6IBW9CVFmMlC8NS f5RUBWEn3dIMo4PwB6HvC8E SX5HsV6OWmvpWXfGSgwJvgd EEtzTAQrrNXiSVxnfxW7AUR aKVsdZICcAaHwTR1nYhGoy0 JhbCBIZWFkLCBSaWdodCBIa XAuXHBhclxmczIwXGNmMSBS ZWNlaXZlZCBmcmVzaCBsYWJ lbGVkIHdpdGggdGhlIHBhdG dxzuOguoWwCY4eBXOkX9Dka 9Mpr87ywwLlRdCrQLVgJDGr wksqrWZdsCorUGEziL8dMRv osFSnGPTpgIFwACL9FzXroY S8QbWmgGSnGkBaN90wBzEsa 3JhbCBoZWFkIHdpdGggYSBq NZrvKUMlBDkieZ2mxnedT3t pWEI2yiuhL4BaXN2gxwsksr 8dCGGgMXMoqqTpG4XlZBYdw 8WvOnVlSSRvccBanZ1csByu aN2rJrnyHZb6ABnnGS73pLW hTkFxDXmxCCN0wWKmlGKbPQ GwIBhbSUDmoz65QAhcz0hvG CGpRdC9h7NdcLZfJP7jyhLm NUglQeNmeIL8iNHiiZFcJ1a dDMV3oxYuBJB1aKR9WCPgGM 1qMHDgmn8aCLWWNOAiARDgm uCqvGz8TVMtOMV5zW6wraWk noHjj6CuqTc0mRAcXQkdMVR kJBFdZVIxhDmlt6wlIwScQC XlaJHgJlpgDRIon28hCDhxy VeamWfrZS1isvnwmyRxrnCF FJ2npAzoJFkgpW4hPARfdPY qAUGrN3KwgJbpnudyVVDyIR lJGVtUB1OINClzDWNtF6GcS 7BhxuC2m6grkMcpt8DcmTHz JN8bhKNnpJ== MICROSCOPIC d8pliBGtXXPtmMQ6SxNsMDJ DESCRIPTION (test code yv3ylk4ZjqVQwvJPsARmuxP = 3371) LgapIkwj65gTP1gE71LV8vB NEfDxQ7ACMmqfZ7Wyh0MNRw ZNHnzEJpN810q8jnh6cqioE wcAH6nWqnCZOzcsffFtV1AD ylTCBlohojXPw1TPivKSUmr GY7TPQmkJYqH0ViWENrWT0u hrv9IKV6BQiuWVEkDjV8SHX nvHJyVQMgjJvgOWhkd503OL L5GyEhCVGhtqTtkXjjxY0cW dUzUIIJMTBnx2PjTCDnDIHy cn0= Gross assessment was [facility]. [facility] performed at ([facility], code = 2777) Department of Pathology, [address] [place] [address], Technical component [facility]. [facility] was performed at ([facility], code = 2778) Department of Pathology, [address] [place] [id number], Professional component [facility]. [facility] was performed at ([facility], code = 2779) Department of Pathology, [address] [place], [place] [address], [facility] [id number] 16:40:15Surgical Pathology Report Case: [id number] Authorizing Provider: Heaven Garza MD Collected: 04/07/2022 03:36 PM Ordering Location: [facility] PERIOPERATIVE Received: 04/07/2022 04:23 PM SERVICES Pathologist: Omari Lora MD Specimen: Femoral Head, Right Hip BONE, RIGHT FEMORAL HEAD, ARTHROPLASTY- ORGANIZING HEMORRHAGE, REACTIVE AND REPARATIVE CHANGES CONSISTENT WITH HISTORY OF FRACTURE - NO MALIGNANCY SEEN Signing Pathologist Direct Phone Line: [phone] signed by Omari Lora MD on 04/14/2022 at 4:40 [id number], [id number] HIP FRACTUREA. Femoral Head, Right Hip.A. Femoral Head, Right Hip.Received fresh labeled with the patient's name, accession number and "right hip femoral head" is a 4.0 x 4.0 x 3.0 cm femoral head with a jagged, hemorrhagic surgical margin. The articular s urface is smooth to finely granular. The cut surface is zurita-yellow, diffusely hemorrhagic at the margin, trabeculated and firm. Procurement Director sections are submitted in A1-A3 following decalcification,with the margin in A1.HANNAH Cox, HT (ASCP)Performed.[facility], Department of Pathology, [address] [place] [address], [facility], Department of [facility]ology, [address] [place] [address], [facility], Department of [facility], [address] [place] [address], NWUR-CoV2/RT-PCR (Asymptomatic ONLY)2022-04-13 17:25:46 Test Item Value Reference Interpretation Comments Range SARS-COV2/RT-PCR Negative Negative The SARS-Co V-2 (test code = target nucleic 94937-9) acids are not detected in thi s [...] revoked sooner. Fact Sheet for Healthcare Providers: https://www.Zang/Documents/Xp ert%20Xpress%20SAR S%20CoV-2/Fact%20S heets/302-3802%20S ARS-COV-2%20HEALTH CARE%20PROVIDERS%2 0FACT%20SHEET.pdf Fact Sheet for Healthcare Patients: https://wwwLiztic/Documents/Xp ert%20Xpress%20SAR S%20CoV-2/Fact%20S heets/302-3801%20S ARS-COV-2%20PATIEN T%20FACT%20SHEET.p df Lab Interpretation Normal (test code = 74490-9) [facility]22-[facility]-13 17:25:46 Test Item Value Reference Interpretation Comments Range SARS-COV2/RT-PCR Negative Negative The SARS-Co V-2 (test code = target nucleic 97837-6) acids are not detected in thi s [...] revoked sooner. Fact Sheet for Healthcare Providers: https://www.Zang/Documents/Xp ert%20Xpress%20SAR S%20CoV-2/Fact%20S heets/302-3802%20S ARS-COV-2%20HEALTH CARE%20PROVIDERS%2 0FACT%20SHEET.pdf Fact Sheet for Healthcare Patients: https://www.Zang/Documents/Xp ert%20Xpress%20SAR S%20CoV-2/Fact%20S heets/302-3801%20S ARS-COV-2%20PATIEN T%20FACT%20SHEET.p df Lab Interpretation Normal (test code = 51766-4) [facility]2022-04-13 17:25:46 Test Item Value Reference Interpretation Comments Range SARS-COV2/RT-PCR Negative Negative The SARS-Co V-2 (test code = target nucleic 08298-8) acids are not detected in thi s [...] revoked sooner. Fact Sheet for Healthcare Providers: https://www.Zang/Documents/Xp ert%20Xpress%20SAR S%20CoV-2/Fact%20S heets/302-3802%20S ARS-COV-2%20HEALTH CARE%20PROVIDERS%2 0FACT%20SHEET.pdf Fact Sheet for Healthcare Patients: https://www.Zang/Documents/Xp ert%20Xpress%20SAR S%20CoV-2/Fact%20S heets/302-3801%20S ARS-COV-2%20PATIEN T%20FACT%20SHEET.p df Lab Interpretation Normal (test code = 87221-8) [facility]2022-04-13 17:25:46 Test Item Value Reference Interpretation Comments Range SARS-COV2/RT-PCR Negative Negative The SARS-Co V-2 (test code = target nucleic 53384-8) acids are not detected in thi s [...] revoked sooner. Fact Sheet for Healthcare Providers: https://www.Zang/Documents/Xp ert%20Xpress%20SAR S%20CoV-2/Fact%20S heets/302-3802%20S ARS-COV-2%20HEALTH CARE%20PROVIDERS%2 0FACT%20SHEET.pdf Fact Sheet for Healthcare Patients: https://www.Zang/Documents/Xp ert%20Xpress%20SAR S%20CoV-2/Fact%20S heets/302-3801%20S ARS-COV-2%20PATIEN T%20FACT%20SHEET.p df Lab Interpretation Normal (test code = 05146-0) [facility]2022-04-13 17:25:46 Test Item Value Reference Interpretation Comments Range SARS-COV2/RT-PCR Negative Negative The SARS-Co V-2 (test code = target nucleic 27050-0) acids are not detected in thi s [...] revoked sooner. Fact Sheet for Healthcare Providers: https://www.Zang/Documents/Xp ert%20Xpress%20SAR S%20CoV-2/Fact%20S heets/302-3802%20S ARS-COV-2%20HEALTH CARE%20PROVIDERS%2 0FACT%20SHEET.pdf Fact Sheet for Healthcare Patients: https://www.Zang/Documents/Xp ert%20Xpress%20SAR S%20CoV-2/Fact%20S heets/302-3801%20S ARS-COV-2%20PATIEN T%20FACT%20SHEET.p df Lab Interpretation Normal (test code = 44070-6) [facility]2022-04-13 17:25:46 Test Item Value Reference Interpretation Comments Range SARS-COV2/RT-PCR Negative Negative The SARS-Co V-2 (test code = target nucleic 47426-7) acids are not detected in thi s [...] revoked sooner. Fact Sheet for Healthcare Providers: https://www.Zang/Documents/Xp ert%20Xpress%20SAR S%20CoV-2/Fact%20S heets/302-3802%20S ARS-COV-2%20HEALTH CARE%20PROVIDERS%2 0FACT%20SHEET.pdf Fact Sheet for Healthcare Patients: https://www.Zang/Documents/Xp ert%20Xpress%20SAR S%20CoV-2/Fact%20S heets/302-3801%20S ARS-COV-2%20PATIEN T%20FACT%20SHEET.p df Lab Interpretation Normal (test code = 02009-9) [facility]2022-04-13 17:25:46 Test Item Value Reference Interpretation Comments Range SARS-COV2/RT-PCR Negative Negative The SARS-Co V-2 (test code = target nucleic 24151-3) acids are not detected in thi s [...] revoked sooner. Fact Sheet for Healthcare Providers: https://www.Zang/Documents/Xp ert%20Xpress%20SAR S%20CoV-2/Fact%20S heets/302-3802%20S ARS-COV-2%20HEALTH CARE%20PROVIDERS%2 0FACT%20SHEET.pdf Fact Sheet for Healthcare Patients: https://www.Zang/Documents/Xp ert%20Xpress%20SAR S%20CoV-2/Fact%20S heets/302-3801%20S ARS-COV-2%20PATIEN T%20FACT%20SHEET.p df Lab Interpretation Normal (test code = 84993-6) [facility])2022-04-13 17:25:46 Test Item Value Reference Range Interpretation Comments SARS-COV2/RT-PCR Negative Negative The SARS-Co V-2 target (test code = nucleic acids a re not 4489745) detected in thi s specimen. Negative result [...] revoked sooner. Fact Sheet for Healthcare Providers: https://www.Teamer.net m/Documents/Xpert%20Xpress%20SARS%20CoV-2/Fact%20Sheets/3023802%80LXXA-OTY-8%20 HEALTHCARE%20PROVIDERS%20FACT%20SHEET.pdf Fact Sheet for Healthcare Patients: https://www.MRO/Documents/Xpert%20Xp ress%20SARS%20CoV-2/Fact%20Sheets/302-3801%17UMSL-NLY-8%20PATIENT%20FACT%20SHEET .pdfBLOOD [id number] 17:00:19 Test Item Value Reference Range Interpretation Comments CULTURE (BEAKER) (test No growth in 5 days code = 1095) BLOOD [id number] 17:00:19 Test Item Value Reference Range Interpretation Comments CULTURE (BEAKER) (test No growth in 5 days code = 1095) POC-Glucose [id number] 15:34:27 Test Item Value Reference Range Interpretation Comments POC-Glucose Meter (test 129 mg/dL 70-110 H : TE STED AT [facility] code = 1538) [address] [place] [address], [facility] 30: Filler Sifter Machine/Techni aldo ID = [id number] for Desmond, Lina Lab Interpretation (test Abnormal code = 48825-5) [facility]-Glucose [id number] 15:34:27 Test Item Value Reference Range Interpretation Comments POC-Glucose Meter (test 129 mg/dL 70-110 H : TE STED AT [facility] code = 1538) [address] [place] [address], [facility] 30: Filler Sifter Machine/Techni aldo ID = [id number] for Desmond, Lina Lab Interpretation (test Abnormal code = 89779-8) [facility] [id number] 15:34:27 Test Item Value Reference Range Interpretation Comments POC-Glucose Meter (test 129 mg/dL 70-110 H : TE STED AT [facility] code = 1538) [address] [place] [address], [facility] 30: Filler Sifter Machine/Techni aldo ID = [id number] for Desmond, Lina Lab Interpretation (test Abnormal code = 22409-2) [facility]-Glucose [id number] 15:34:27 Test Item Value Reference Range Interpretation Comments POC-Glucose Meter (test 129 mg/dL 70-110 H : TE STED AT [facility] code = 1538) [address] [place] [address], [facility] 30: Filler Sifter Machine/Techni aldo ID = [id number] for Desmond, Lina Lab Interpretation (test Abnormal code = 98481-6) [facility] [id number] 15:34:27 Test Item Value Reference Range Interpretation Comments POC-Glucose Meter (test 129 mg/dL 70-110 H : TE STED AT [facility] code = 1538) [address] [place] [address], 770 30: Filler Sifter Machine/Techni aldo ID = [id number] for Desmond, Lina Lab Interpretation (test Abnormal code = 71715-5) [facility] [id number] 15:34:27 Test Item Value Reference Range Interpretation Comments POC-Glucose Meter (test 129 mg/dL 70-110 H : TE STED AT [facility] code = 1538) [address] [place] [address], 770 30: Filler Sifter Machine/Techni aldo ID = [id number] for Desmond, Lina Lab Interpretation (test Abnormal code = 52143-3) [facility]-Glucose [id number] 15:34:27 Test Item Value Reference Range Interpretation Comments POC-Glucose Meter (test 129 mg/dL 70-110 H : TE STED AT [facility] code = 1538) [address] [place] [address], 770 30: Filler Sifter Machine/Techni aldo ID = [id number] for Desmond, Ilna Lab Interpretation (test Abnormal code = 48138-0) [facility] [id number] 15:34:27 Test Item Value Reference Range Interpretation Comments POC-GLUCOSE METER 129 mg/dL 70-110 H : TESTED A T [facility] 6720 (BEAKER) (test code = [facility], 1538) 09690: Filler Sifter Machine/Techni aldo ID = [id number] for Br yant, Lina POCT-GLUCOSE [id number] 11:44:07 Test Item Value Reference Range Interpretation Comments POC-GLUCOSE METER 118 mg/dL 70-110 H : TESTED A T [facility] 6720 (BEAKER) (test code = [facility], 1538) 17614: Filler Sifter Machine/Techni aldo ID = [id number] for Br yant, Lina POCT-GLUCOSE [id number] 08:00:15 Test Item Value Reference Range Interpretation Comments POC-GLUCOSE METER 114 mg/dL 70-110 H : TESTED A T [facility] 6720 (BEAKER) (test code = [place], 1538) 92473: Filler Sifter Machine/Techni aldo ID = [id number] for Lina Dotson [id number] 05:48:59 Test Item Value Reference Range Interpretation Comments MAGNESIUM (BEAKER) 2.0 mg/dL 1.6-2.6 Specimen slightly (test code = 627) hemolyzed Filler Sifter Machine ID - PIJOVANNI [id number] 05:48:59 Test Item Value Reference Range Interpretation Comments PHOSPHORUS (BEAKER) 3.9 mg/dL 2.3-4.7 Specimen slightly (test code = 604) hemolyzed Filler Sifter Machine ID - PIAYA LBASIC METABOLIC [id number] 05:48:59 Test Item Value Reference Range Interpretation [...] not appl icable for dialysis patien ts Filler Sifter Machine ID - PIAYA LCBC (HEMOGRAM ONLY)2022-04-13 04:52:27 [...] 0-0 (BEAKER) (test code = 413) POCT-GLUCOSE [id number] 21:03:16 Test Item Value Reference Range Interpretation Comments POC-GLUCOSE METER 111 mg/dL 70-110 H : TESTED A T [facility] 6720 (BEAKER) ([facility] = [facility], 1538) 14756: Filler Sifter Machine/Techni aldo ID = [id number] for Liya Etiennesa POCT-GLUCOSE [id number] 15:53:40 Test Item Value Reference Range Interpretation Comments POC-GLUCOSE METER 133 mg/dL 70-110 H : TESTED A T [facility] 6720 (BEAKER) (test code [facility], = 1538) 99941: Filler Sifter Machine/Techni aldo ID = [id number] for SANDRA Bradshaw POCT-GLUCOSE [id number] 12:54:17 Test Item Value Reference Range Interpretation Comments POC-GLUCOSE METER 130 mg/dL 70-110 H : TESTED A T [facility] 6720 (BEAKER) (test code [facility], = 1538) 56308: Filler Sifter Machine/Techni aldo ID = [id number] for SANDRA Bradshaw POCT-GLUCOSE [id number] 08:18:20 Test Item Value Reference Range Interpretation Comments POC-GLUCOSE METER 116 mg/dL 70-110 H : TESTED A T [facility] 6720 (BEAKER) (test code [facility], = 1538) 58141: Filler Sifter Machine/Techni aldo ID = [id number] for SANDRA Bradshaw BASIC METABOLIC [id number] 04:23:08 Test Item Value Reference Range Interpretation [...] eGF R is based on the CKD-EPI 1 equation that d oes not use a race coefficientEsti mated GFR is not as accur ate as Creatinine Celena lety in predicting glom erular filtration rate . Estimated GFR is not appl icable for dialysis patien ts Filler Sifter Machine ID - ELVIN [id number] 04:23:08 Test Item Value Reference Range Interpretation Comments MAGNESIUM (BEAKER) (test code = 2.0 mg/dL 1.6-2.6 627) Filler Sifter Machine ID - ELVIN [id number] 04:23:08 Test Item Value Reference Range Interpretation Comments PHOSPHORUS (BEAKER) (test code = 2.6 mg/dL 2.3-4.7 604) Filler Sifter Machine ID Carlo OCONNOR WCBC (HEMOGRAM ONLY)2022-04-12 04:05:05 [...] 0-0 (BEAKER) (test code = 413) POCT-GLUCOSE [id number] 20:52:48 Test Item Value Reference Range Interpretation Comments POC-GLUCOSE METER 151 mg/dL 70-110 H : [facility] ([facility] (test code = [place], 1538) 41617: Filler Sifter Machine/Techni aldo ID = [id number] for SLIM VICTOR POCT-GLUCOSE [id number] 16:09:14 Test Item Value Reference Range Interpretation Comments POC-GLUCOSE METER 130 mg/dL 70-110 H : TESTED A T [facility] 6720 (BEAKER) (test code = [facility] [place], 1538) 19950: Filler Sifter Machine/Techni aldo ID = [id number] for Ruslan Powell POCT-GLUCOSE [id number] 11:25:47 Test Item Value Reference Range Interpretation Comments POC-GLUCOSE METER 99 mg/dL 70-110 : TESTED A T [facility] 6720 (BEAKER) (test code = [facility] [place] [facility], 1538) 30969: Filler Sifter Machine/Techni aldo ID = [id number] for Ruslan Magana Urine [id number] 08:48:43 Test Item Value Reference Range Interpretation Comments Result (test code = 6463-4) No [facility] [id number] 08:48:43 Test Item Value Reference Range Interpretation Comments Result (test code = 6463-4) No growth [facility] [id number] 08:48:43 Test Item Value Reference Range Interpretation Comments Result (test code = 6463-4) No growth [facility] [id number] 08:48:43 Test Item Value Reference Range Interpretation Comments Result (test code = 6463-4) No growth [facility] [id number] 08:48:43 Test Item Value Reference Range Interpretation Comments Result (test code = 6463-4) No growth [facility] [id number] 08:48:43 Test Item Value Reference Range Interpretation Comments Result (test code = 6463-4) No growth [facility] [id number] 08:48:43 Test Item Value Reference Range Interpretation Comments Result (test code = 6463-4) No growth [facility] [id number] 08:48:43 Test Item Value Reference Range Interpretation Comments CULTURE (BEAKER) (test code = 1095) No growth POCT-GLUCOSE [id number] 07:40:08 Test Item Value Reference Range Interpretation Comments POC-GLUCOSE METER 96 mg/dL 70-110 : TESTED A T [facility] 6720 (BEAKER) (test code = [place], 1538) 26966: Filler Sifter Machine/Techni aldo ID = [id number] for Ruslan Magana [id number] 06:30:09 Test Item Value Reference Range Interpretation Comments PHOSPHORUS (BEAKER) (test code = 2.2 mg/dL 2.3-4.7 L 604) Filler Sifter Machine ID - MIMI GBASIC METABOLIC [id number] 06:30:08 Test Item Value Reference Range Interpretation [...] eGF R is based on the CKD-EPI 202 equation that d oes not use a race coefficientEsti mated GFR is not as accur ate as Creatinine Celena davidson in predicting glom erular filtration rate . Estimated GFR is not appl icable for dialysis patien ts Filler Sifter Machine ID - MIMI [id number] 06:30:08 Test Item Value Reference Range Interpretation Comments MAGNESIUM (BEAKER) (test code = 2.1 mg/dL 1.6-2.6 627) Filler Sifter Machine ID - MIMI GCBC (HEMOGRAM ONLY)2022-04-11 05:58:00 [...] 0-0 (BEAKER) (test code = 413) POCT-GLUCOSE [id number] 21:31:00 Test Item Value Reference Range Interpretation Comments POC-GLUCOSE METER 117 mg/dL 70-110 H : TESTED A T [facility] 6720 (TracourAKER) (test code = [facility], 153) 27357: Filler Sifter Machine/Techni aldo ID = [id number] for SLIM VICTOR POCT-GLUCOSE [id number] 16:59:44 Test Item Value Reference Range Interpretation Comments POC-GLUCOSE METER 110 mg/dL 70-110 : TESTED A T [facility] 6720 (BEAKER) (test code = [facility], 153) 57621: Filler Sifter Machine/Techni aldo ID = [id number] for RA MOS, DARLINE POCT-GLUCOSE [id number] 11:22:31 Test Item Value Reference Range Interpretation Comments POC-GLUCOSE METER 156 mg/dL 70-110 H : TESTED A T [facility] 6720 (BEAKER) (test code = [place], 1538) 66035: Filler Sifter Machine/Techni aldo ID = [id number] for RA MOS, DARLINE POCT-GLUCOSE [id number] 07:51:14 Test Item Value Reference Range Interpretation Comments POC-GLUCOSE METER 113 mg/dL 70-110 H : TESTED A T [facility] 6720 (BEAKER) (test code = [facility] [place] [facility], 1538) 39713: Filler Sifter Machine/Techni aldo ID = [id number] for RA MOS, DARLINE [id number] 06:43:13 Test Item Value Reference Range Interpretation Comments MAGNESIUM (BEAKER) 2.0 mg/dL 1.6-2.6 Specimen slightly (test code = 627) hemolyzed Filler Sifter Machine ID - HUMBLE [id number] 06:43:13 Test Item Value Reference Range Interpretation Comments PHOSPHORUS (BEAKER) 2.1 mg/dL 2.3-4.7 L Specimen slightly (test code = 604) hemolyzed Filler Sifter Machine ID - HUMBLE MBASIC METABOLIC [id number] 06:43:13 Test Item Value Reference Range Interpretation [...] not appl icable for dialysis patien ts Filler Sifter Machine ID - HUMBLE MCBC (HEMOGRAM ONLY)2022-04-10 06:18:00 [...] (BEAKER) (test code = 413) Prepare Leuko-Red [id number] 23:54:00 Test Item Value Reference Range Interpretation Comments CROSSMATCH (test code = 2264) COMPATIBLE Unit ABO (test code = O Pos 2097663) UNIT NUMBER (test code = [id number] 934-0) Status (test code = 3545072) [place]_TIMEINCHART Blood Bank Product (test code RED BLOOD CELLS = 2263) PRODUCT CODE (test code = W7991F81 933-2) [facility] [id number] 23:54:00 Test Item Value Reference Range Interpretation Comments CROSSMATCH (test code = 2264) COMPATIBLE Unit ABO (test code = O Pos 7419942) UNIT NUMBER (test code = [id number] 934-0) Status (test code = 5949735) TX_TIMEINCHART Blood Bank Product (test code RED BLOOD CELLS = 2263) PRODUCT CODE (test code = W4304V35 933-2) [facility] Leuko-Red [id number] 23:54:00 Test Item Value Reference Range Interpretation Comments CROSSMATCH (test code = 2264) COMPATIBLE Unit ABO (test code = O Pos 8784873) UNIT NUMBER (test code = [id number] 934-0) Status (test code = 1335259) [place]_TIMEINCHART Blood Bank Product (test code RED BLOOD CELLS = 2263) PRODUCT CODE (test code = P3805S22 933-2) [facility] Leuko-Red [id number] 23:54:00 Test Item Value Reference Range Interpretation Comments CROSSMATCH (test code = 2264) COMPATIBLE Unit ABO (test code = O Pos 8175715) UNIT NUMBER (test code = [id number] 934-0) Status (test code = 2180457) [place]_TIMEINCHART Blood Bank Product (test code RED BLOOD CELLS = 2263) PRODUCT CODE (test code = I6018M85 933-2) [facility] Leuko-Red [id number] 23:54:00 Test Item Value Reference Range Interpretation Comments CROSSMATCH (test code = 2264) COMPATIBLE Unit ABO (test code = O Pos 7943468) UNIT NUMBER (test code = [id number] 934-0) Status (test code = 5486719) [place]_TIMEINCHART Blood Bank Product (test code RED BLOOD CELLS = 2263) PRODUCT CODE (test code = X4213X42 933-2) [facility] Leuko-Red [id number] 23:54:00 Test Item Value Reference Range Interpretation Comments CROSSMATCH (test code = 2264) COMPATIBLE Unit ABO (test code = O Pos 5520740) UNIT NUMBER (test code = [id number] 934-0) Status (test code = 5981686) [facility] Product (test code RED BLOOD CELLS = 2263) PRODUCT CODE (test code = C8592M72 933-2) [facility] Leuko-Red [id number] 23:54:00 Test Item Value Reference Range Interpretation Comments CROSSMATCH (test code = 2264) COMPATIBLE Unit ABO (test code = O Pos 6998116) UNIT NUMBER (test code = [id number] 934-0) Status (test code = 4272944) [facility] Blood Bank Product (test code RED BLOOD CELLS = 2263) PRODUCT CODE (test code = C0050M98 933-2) [facility] HospitalPO[facility] [id number] 23:08:16 Test Item Value Reference Range Interpretation Comments POC-GLUCOSE METER 119 mg/dL 70-110 H : TESTED A T [facility] 6720 (BEAKER) ([facility] = [facility], 1538) 03247: Filler Sifter Machine/Techni aldo ID = [id number] for Paris Lipscomb POCT-GLUCOSE [id number] 17:18:13 Test Item Value Reference Range Interpretation Comments POC-GLUCOSE METER 172 mg/dL 70-110 H : TESTED A T [facility] 6720 (BEAKER) (test code = [facility] Sendy [facility], 1538) 87559: Filler Sifter Machine/Techni aldo ID = [id number] for DAVISWINNIE ROTHMAN CBC (HEMOGRAM ONLY)2022-04-09 16:39:21 Test Item Value [...] 0-0 (BEAKER) (test code = 413) POCT-GLUCOSE [id number] 11:54:11 Test Item Value Reference Range Interpretation Comments POC-GLUCOSE METER 182 mg/dL 70-110 H : TESTED A T [facility] 6720 (BEAKER) (test code = [facility], 1538) 45142: Filler Sifter Machine/Techni aldo ID = [id number] for DE NNISWINNIE POCT-GLUCOSE [id number] 07:49:48 Test Item Value Reference Range Interpretation Comments POC-GLUCOSE METER 139 mg/dL 70-110 H : TESTED A T [facility] 6720 (BEAKER) (test code = [facility], 1538) 09340: Filler Sifter Machine/Techni aldo ID = [id number] for DE NNIS, WINNIE Venous doppler legs [id number] 07:38:03Ejection FractionSLEH ECHO HEARTLAB MKCKESSON [facility] bilateral 2022-04-09 07:38:03Ejection FractionSLEH ECHO HEARTLAB MKCKESSON [facility] CenterVenous doppler legs [id number] 07:38:03Ejection FractionSLEH ECHO HEARTLAB MKCKESSON [facility] CenterVenous doppler legs [id number] 07:38:03Ejection FractionSLEH ECHO HEARTLAB MKCKESSON [facility] Center[facility] do[facility] legs bilateral 2022-04-09 07:38:03Ejection FractionSLEH ECHO HEARTLAB MKCKESSON [facility] CenterVenous doppler legs koeaczgys5403-80-05 07:38:03Ejection FractionSLEH ECHO [facility]ARTLAB [facility] Center[facility] doppler legs [id number] 07:38:03Ejection FractionSLEH ECHO HEARTLAB [facility] CenterPHOSPHORUS2022-07-29 06:41:32 Test Item Value Reference Range Interpretation Comments PHOSPHORUS (BEAKER) (test code = 2.5 mg/dL 2.3-4.7 604) Filler Sifter Machine ID Carlo OCONNOR WBASIC METABOLIC [id number] 06:41:31 Test Item Value Reference Range Interpretation [...] not appl icable for dialysis patien ts Filler Sifter Machine ID Carlo OCONNOR [id number] 06:41:31 Test Item Value Reference Range Interpretation Comments MAGNESIUM (BEAKER) (test code = 4.3 mg/dL 1.6-2.6 H 627) Filler Sifter Machine AMANDA OCONNOR WCBC W/PLT COUNT & AUTO [id number] 06:12:33 Test Item Value Reference Range Interpretation [...] PERCENT (BEAKER) (test code = 2801) POCT-GLUCOSE [id number] 00:19:02 Test Item Value Reference Range Interpretation Comments POC-GLUCOSE METER 144 mg/dL 70-110 H : TESTED A T [facility] 6720 (BEAKER) (test code = [place], 1538) 32519: Filler Sifter Machine/Techni aldo ID = [id number] for Sp Ashwin morales RAD, PELVIS, 1 OR 2 [id number] 23:03:00Reason for exam:->postop R hip hemion floor as not done in pacuShould this be performed at the bedside?->Yes [facility] 1950 Sex: [...] Signed: Ashely Peralta Verified Date/Time: 04/08/2022 23:03:37 BASIC METABOLIC [id number] 22:31:44 Test Item Value Reference Range Interpretation [...] not appl icable for dialysis patien ts Filler Sifter Machine ID - [id number] 22:31:14 Test Item Value Reference Range Interpretation Comments MAGNESIUM (BEAKER) (test code = 1.6 mg/dL 1.6-2.6 627) Filler Sifter Machine ID - [id number] 22:31:14 Test Item Value Reference Range Interpretation Comments PHOSPHORUS (BEAKER) (test code = 2.0 mg/dL 2.3-4.7 L 604) Filler Sifter Machine ID - BSLACTIC ACID, [id number] 22:23:33 Test Item Value Reference Range Interpretation Comments LACTATE BLOOD VENOUS (2) (BEAKER) 1.96 mmol/L 0.50-2.20 (test code = 9212) Filler Sifter Machine ID - BSCBC (HEMOGRAM ONLY)2022-04-08 22:07:28 Test [...] = 413) CBC W/PLT COUNT & AUTO [id number] 18:40:26 Test Item Value Reference Range Interpretation [...] (BEAKER) (test code = 2801) LACTIC ACID, [id number] 16:35:30 Test Item Value Reference Range Interpretation Comments LACTATE BLOOD VENOUS (2) (BEAKER) 3.04 mmol/L 0.50-2.20 H (test code = 4602) Filler Sifter Machine ID - BSBASIC METABOLIC [id number] 16:24:06 Test Item Value Reference Range Interpretation [...] not appl icable for dialysis patien ts Filler Sifter Machine ID - ADMINRAD, CHEST, 1 VIEW, NON [id number] 16:12:00Reason for exam:->dyspneaShould this be performed at the bedside?->Yes [facility] 1950 Sex: FFINAL REPORT CLINICAL HISTORY: dyspnea TECHNIQUE: 1 view of the chest. COMPARISON: None IMPRESSION: There are no focal infiltrates or effusions. The cardiomediastinal silhouette is magnified by technique. The osseous structures appear intact. Signed: Derrick Ignacio Verified Date/Time: 04/08/2022 16:12:21 Reading Location: [facility] Radiology Reading Room POCT-GLUCOSE METER 2022-04-08 15:31:41 Test Item Value Reference Range Interpretation Comments POC-GLUCOSE METER 208 mg/dL 70-110 H : TESTED A T [facility] 6720 (BEAKER) (test code = [facility], 1538) 07686: Filler Sifter Machine/Techni aldo ID = [id number] for Ma ster, Evangelina POCT-GLUCOSE [id number] 11:42:48 Test Item Value Reference Range Interpretation Comments POC-GLUCOSE METER 240 mg/dL 70-110 H : TESTED A T [facility] 6720 (BEAKER) (test code = [facility], 1538) 81880: Filler Sifter Machine/Techni aldo ID = [id number] for Ma ster, Evangelina CT, EXTREMITY, LOWER WITHOUT CONTRAST, [id number] 08:41:00Unlisted Reason for Exam - Click Yes and Enter Reason Below->Yesevaluate for fractureUnlisted Reason for Exam->evaluate for fracture with cement extravasationPlease specify:->Femur [facility] : 1950 Sex: [...] Arrington Verified Date/Time: 04/08/2022 08:41:48 Reading Location: [address] Ortho Consult Reading Room -GLUCOSE [id number] 17:39:33 Test Item Value Reference Range Interpretation Comments POC-GLUCOSE METER 102 mg/dL 70-110 : TESTED A Stephanie [facility] 6720 (LIA) (test code = [place], 1538) 38298: Filler Sifter Machine/Techni aldo ID = [id number] for Wi lliams, Joana RAD, PELVIS, 1 OR 2 [id number] 16:39:00Reason for exam:->RIGHT HIP ARTHROPLASTYJEROLD [facility] : 1950 Sex: FFINAL REPORT Pelvis History provided: Right hip arthroplasty Components of right hip arthroplasty are in place. Left hip intact. Signed: Matt Juárez Verified Date/Time: 6:39:06 Reading Location: [facility] Diagnostic Imaging Reading Room - [place] [address].12 POCT-GLUCOSE [id number] 10:01:19 Test Item Value Reference Range Interpretation Comments POC-GLUCOSE METER 111 mg/dL 70-110 H : TESTED A T [facility] 6720 (BEAKER) (test code = [facility] [place], 1538) 61623: Filler Sifter Machine/Techni aldo ID = [id number] for IMELDA JC CBC W/PLT COUNT & AUTO [id number] 07:15:22 Test Item Value Reference Range Interpretation [...] = 2801) Urinalysis w/Microscopic + Reflex to [id number] 06:45:42 Test Item Value Reference Range Interpretation Comments Color, UA (test code Yellow = 5778-6) Clarity, UA (test Clear code = 5767-9) Specific [place], UA 1.026 1.001-1.035 (test code = 5811-5) pH, UA (test code = 6.5 5.0-8.0 5803-2) Protein, UA (test 20 mg/dL Negative A code = 63751-9) Glucose, UA (test Negative Negative code = 365) Ketones, UA (test Negative Negative code = 2514-8) Bilirubin, UA (test Negative Negative code = 66704-7) Blood, UA (test code Trace Negative A = 00910-3) Nitrite, UA (test Negative Negative code = 5802-4) Leukocytes, UA (test Moderate Negative A code = 5799-2) Urobilinogen, UA 0.2 mg/dL 0.2-1.0 (test code = 05773-0) RBC, UA (test code = 12 See_Comment [Autom ated 93971-5) message] The system which generated this result [...] Bacteria, UA (test None Seen code = 34114-3) Mucus (test code = Occasional 8247-9) Squam Epithel, UA See_Comment [Automate d (test code = 03371-8) messag e] The system which generated this result transmitted reference range : /HPF. The reference range was not used to interpret this result as normal/abnormal . Crystals, Urine (test None Seen code = 59712-3) Specimen Source (test code = 2795) TORRES (test code = TORRES) Filler Sifter Machine ID - [auto]Filler Sifter Machine ID - tech Lab Interpretation Abnormal (test code = 95450-4) [facility]/Microscopic + Reflex to Culture 2022-04-07 06:45:42 Test Item Value Reference Range Interpretation Comments Color, UA (test code Yellow = 5778-6) Clarity, UA (test Clear code = 5767-9) Specific [place], UA 1.026 1.001-1.035 (test code = 5811-5) pH, UA (test code = 6.5 5.0-8.0 5803-2) Protein, UA (test 20 mg/dL Negative A code = 14391-7) Glucose, UA (test Negative Negative code = 365) Ketones, UA (test Negative Negative code = 2514-8) Bilirubin, UA (test Negative Negative code = 30573-1) Blood, UA (test code Trace Negative A = 00841-2) Nitrite, UA (test Negative Negative code = 5802-4) Leukocytes, UA (test Moderate Negative A code = 5799-2) Urobilinogen, UA 0.2 mg/dL 0.2-1.0 (test code = 82140-6) RBC, UA (test code = 12 See_Comment [Autom ated 25610-5) message] The system which generated this result [...] Bacteria, UA (test None Seen code = 36601-3) Mucus (test code = Occasional 8247-9) Squam Epithel, UA <1 See_Comment [Automate d (test code = 35018-2) messag e] The system which generated this result transmitted reference range : /HPF. The reference range was not used to interpret this result as normal/abnormal . Crystals, Urine (test None Seen code = 61604-0) Specimen Source (test code = 2795) TORRES (test code = TORRES) Filler Sifter Machine ID - [auto]Filler Sifter Machine ID - tech Lab Interpretation Abnormal (test code = 48720-4) [facility] 2022-04-07 06:45:42 Test Item Value Reference Range Interpretation Comments Color, UA (test code Yellow = 5778-6) Clarity, UA (test Clear code = 5767-9) Specific [place], UA 1.026 1.001-1.035 (test code = 5811-5) pH, UA (test code = 6.5 5.0-8.0 5803-2) Protein, UA (test 20 mg/dL Negative A code = 30883-0) Glucose, UA (test Negative Negative code = 365) Ketones, UA (test Negative Negative code = 2514-8) Bilirubin, UA (test Negative Negative code = 84668-3) Blood, UA (test code Trace Negative A = 71841-5) Nitrite, UA (test Negative Negative code = 5802-4) Leukocytes, UA (test Moderate Negative A code = 5799-2) Urobilinogen, UA 0.2 mg/dL 0.2-1.0 (test code = 20530-5) RBC, UA (test code = 12 See_Comment [Autom ated 20336-3) message] The system which generated this result [...] Bacteria, UA (test None Seen code = 02878-8) Mucus (test code = Occasional 8247-9) Squam Epithel, UA <1 See_Comment [Automate d (test code = 45148-6) messag e] The system which generated this result transmitted reference range : /HPF. The reference range was not used to interpret this result as normal/abnormal . Crystals, Urine (test None Seen code = 05992-3) Specimen Source (test code = 2795) TORRES (test code = TORRES) Filler Sifter Machine ID - [auto]Filler Sifter Machine ID - tech Lab Interpretation Abnormal (test code = 18032-4) [facility] Culture 2022-04-07 06:45:42 Test Item Value Reference Range Interpretation Comments Color, UA (test code Yellow = 5778-6) Clarity, UA (test Clear code = 5767-9) Specific [place], UA 1.026 1.001-1.035 (test code = 5811-5) pH, UA (test code = 6.5 5.0-8.0 5803-2) Protein, UA (test 20 mg/dL Negative A code = 27063-8) Glucose, UA (test Negative Negative code = 365) Ketones, UA (test Negative Negative code = 2514-8) Bilirubin, UA (test Negative Negative code = 50603-7) Blood, UA (test code Trace Negative A = 88741-3) Nitrite, UA (test Negative Negative code = 5802-4) Leukocytes, UA (test Moderate Negative A code = 5799-2) Urobilinogen, UA 0.2 mg/dL 0.2-1.0 (test code = 21254-1) RBC, UA (test code = 12 See_Comment [Autom ated 65136-7) message] The system which generated this result [...] Bacteria, UA (test None Seen code = 51220-8) Mucus (test code = Occasional 8247-9) Squam Epithel, UA <1 See_Comment [Automate d (test code = 78902-6) messag e] The system which generated this result transmitted reference range : /HPF. The reference range was not used to interpret this result as normal/abnormal . Crystals, Urine (test None Seen code = 41198-7) Specimen Source (test code = 2795) TORRES (test code = TORRES) Filler Sifter Machine ID - [auto]Filler Sifter Machine ID - tech Lab Interpretation Abnormal (test code = 00799-1) [facility]lex [facility] Culture 2022-04-07 06:45:42 Test Item Value Reference Range Interpretation Comments Color, UA (test code Yellow = 5778-6) Clarity, UA (test Clear code = 5767-9) Specific [place], UA 1.026 1.001-1.035 (test code = 5811-5) pH, UA (test code = 6.5 5.0-8.0 5803-2) Protein, UA (test 20 mg/dL Negative A code = 70313-6) Glucose, UA (test Negative Negative code = 365) Ketones, UA (test Negative Negative code = 2514-8) Bilirubin, UA (test Negative Negative code = 42513-8) Blood, UA (test code Trace Negative A = 31257-6) Nitrite, UA (test Negative Negative code = 5802-4) Leukocytes, UA (test Moderate Negative A code = 5799-2) Urobilinogen, UA 0.2 mg/dL 0.2-1.0 (test code = 94336-5) RBC, UA (test code = 12 See_Comment [Autom ated 33079-5) message] The system which generated this result [...] Bacteria, UA (test None Seen code = 47909-7) Mucus (test code = Occasional 8247-9) Squam Epithel, UA See_Comment [Automate d (test code = 62655-4) messag e] The system which generated this result transmitted reference range : /HPF. The reference range was not used to interpret this result as normal/abnormal . Crystals, Urine (test None Seen code = 50208-0) Specimen Source (test code = 2795) TORRES (test code = TORRES) Filler Sifter Machine ID - [auto]Filler Sifter Machine ID - tech Lab Interpretation Abnormal (test code = 32639-5) [facility] Reflex to Culture 2022-04-07 06:45:42 Test Item Value Reference Range Interpretation Comments Color, UA (test code Yellow = 5778-6) Clarity, UA (test Clear code = 5767-9) Specific [place], UA 1.026 1.001-1.035 (test code = 5811-5) pH, UA (test code = 6.5 5.0-8.0 5803-2) Protein, UA (test 20 mg/dL Negative A code = 84206-3) Glucose, UA (test Negative Negative code = 365) Ketones, UA (test Negative Negative code = 2514-8) Bilirubin, UA (test Negative Negative code = 99249-7) Blood, UA (test code Trace Negative A = 30946-0) Nitrite, UA (test Negative Negative code = 5802-4) Leukocytes, UA (test Moderate Negative A code = 5799-2) Urobilinogen, UA 0.2 mg/dL 0.2-1.0 (test code = 48889-5) RBC, UA (test code = 12 See_Comment [Autom ated 65902-7) message] The system which generated this result [...] Bacteria, UA (test None Seen code = 89389-2) Mucus (test code = Occasional 8247-9) Squam Epithel, UA See_Comment [Automate d (test code = 18255-1) messag e] The system which generated this result transmitted reference range : /HPF. The reference range was not used to interpret this result as normal/abnormal . Crystals, Urine (test None Seen code = 19083-4) Specimen Source (test code = 2795) TORRES (test code = TORRES) Filler Sifter Machine ID - [auto]Filler Sifter Machine ID - tech Lab Interpretation Abnormal (test code = 84157-7) [facility] Reflex to Culture 2022-04-07 06:45:42 Test Item Value Reference Range Interpretation Comments Color, UA (test code Yellow = 5778-6) Clarity, UA (test Clear code = 5767-9) Specific [place], UA 1.026 1.001-1.035 (test code = 5811-5) pH, UA (test code = 6.5 5.0-8.0 5803-2) Protein, UA (test 20 mg/dL Negative A code = 21441-0) Glucose, UA (test Negative Negative code = 365) Ketones, UA (test Negative Negative code = 2514-8) Bilirubin, UA (test Negative Negative code = 49913-8) Blood, UA (test code Trace Negative A = 83136-4) Nitrite, UA (test Negative Negative code = 5802-4) Leukocytes, UA (test Moderate Negative A code = 5799-2) Urobilinogen, UA 0.2 mg/dL 0.2-1.0 (test code = 79389-2) RBC, UA (test code = 12 See_Comment [Autom ated 39151-5) message] The system which generated this result [...] Bacteria, UA (test None Seen code = 77881-4) Mucus (test code = Occasional 8247-9) Squam Epithel, UA See_Comment [Automate d (test code = 37884-8) messag e] The system which generated this result transmitted reference range : /HPF. The reference range was not used to interpret this result as normal/abnormal . Crystals, Urine (test None Seen code = 94840-7) Specimen Source (test code = 2795) TORRES (test code = TORRES) Filler Sifter Machine ID - [auto]Filler Sifter Machine ID - tech Lab Interpretation Abnormal (test code = 10343-4) [facility] [id number] 06:45:42 Test Item Value Reference Range Interpretation [...] = 1521) SOURCE(BEAKER) (test code = 2795) Filler Sifter Machine ID - [auto]Filler Sifter Machine ID - techBASIC METABOLIC [id number] 06:11:49 Test Item Value Reference Range Interpretation [...] S NOT APPLICABLE FOR DIALYSIS PATIEN TS. Filler Sifter Machine ID - ELVIN WSARS-COV2/RT-PCR ([facility])2022-04-07 04:44:08 Test Item Value Reference Range Interpretation Comments SARS-COV2/RT-PCR (test Negative Not Detected, Negative, code = 5095004) See external report for linked test SARS-COV-2 PERFORMING LAB [facility] (test code = 3982568) Negative result for this test determines that [...] of the Act.Fact Sheet for Healthcare Prov iders:https://www.[employer]/sites/default/files/product/documents/Fact_Sheet_HC _Kvbalrcon_Dkdg_YJZH-JpD-7.pdfFact Sheet for Healthcare Patients:https://www.[employer]/sites/default/files/product/docume nts/Muks_Akioc_Kfheyohk_Wzxd_HTTD-ZfZ-3.pdfPerforming Laboratory:[address] [place], [place] [address]EULH. METABOLIC PANEL (77217)2021-07-24 17:14:29 Test Item Value Reference Range Interpretation Comments NA (test code = 139 mmol/L 135-145 5911957972) K (test code = 4.3 mmol/L 3.5-5.0 4258378502) CL (test code = 104 mmol/L 98-108 4341733775) CO2 TOTAL (test code = 24 mmol/L 23-31 7677944237) AGAP (test code = 2-16 5990694868) BUN (test code = 18 mg/dL 7-23 5307141968) GLUCOSE (test code = 104 mg/dL 70-110 7228293154) CREATININE (test code = 1.39 mg/dL 0.50-1.04 H 0258168417) TOTAL BILI (test code = 0.4 mg/dL 0.1-1.7 7295922341) CALCIUM (test code = 9.6 mg/dL 8.6-10.6 1603606894) T PROTEIN (test code = 8.4 g/dL 6.3-8.2 H 5959932145) ALBUMIN (test code = 4.6 g/dL 3.5-5.0 3048256087) ALK PHOS (test code = 93 U/L 34-122 4322325684) ALTv (test code = 44 U/L 5-35 H 2-6) AST(SGOT) (test code = 48 U/L 13-40 H 9733540805) eGFR (test code = mL/min/1.73m2 9428394807) TORRES (test code = TORRES) Association of [...] tests). Lab Interpretation Abnormal (test code = 07816-8) [facility] Test Item Value Reference Range Interpretation Comments LIPASE (test code = 8056580031) 266 U/L 0-220 H Lab Interpretation (test code = Abnormal 33901-3) [facility] [id number] 17:03:27 Test Item Value Reference Range Interpretation Comments WBC (test code = See_Comment [Automated 6690-2) message] The sy stem which generated this result transmitted reference range : 4.30 - 11.10 10*3/?L. The reference range was not used to interpret this result as normal/abnormal . RBC (test code = See_Comment [Automated 789-8) message] The sy stem which generated this [...] RDW-SD (test code = 48.4 fL 39.0-49.9 89707-9) RDW-CV (test code = 13.8 % 12.0-15.5 788-0) PLT (test code = See_Comment [Automated 777-3) message] The sy stem which generated this result transmitted reference range : 166 - 358 10*3/ ?L. The reference r becca was not used to interpret this result as normal/abnormal . MPV (test code = 9.1 fL 9.5-12.9 L 54952-2) NRBC/100 WBC (test See_Comment [Automat ed code = 8461211511) message] The system which generated this result transmitted reference range : 0.0 - 10.0 /100 WBCs. The refer ence range was not u sed to interpret th is result as normal/abnormal . NRBC x10^3 (test code <0.01 See_Comment [Auto mated = 9828971725) message] The s ystem which generated this result transmitted reference range : 10*3/?L. The reference range was not used to interpret this result as normal/abnormal . GRAN MAT (NEUT) % 64.8 % (test code = 770-8) IMM GRAN % (test code 0.90 % = 8582698559) LYMPH % (test code = 24.2 % 736-9) MONO % (test code = 8.2 % 5905-5) EOS % (test code = 1.4 % 713-8) BASO % (test code = 0.5 % 706-2) GRAN MAT x10^3(ANC) 5.59 10*3/uL 1.88-7.09 (test code = 1787556225) IMM GRAN x10^3 (test 0.08 10*3/uL 0.00-0.06 H code = 8599760063) LYMPH x10^3 (test code 2.09 10*3/uL 1.32-3.29 = 731-0) MONO x10^3 (test code 0.71 10*3/uL 0.33-0.92 = 742-7) EOS x10^3 (test code = 0.12 10*3/uL 0.03-0.39 711-2) BASO x10^3 (test code 0.04 10*3/uL 0.01-0.07 = 704-7) Lab Interpretation Abnormal (test code = 31148-8) [facility] metabolic [id number] 07:08:00 Test Item Value Reference Range Interpretation Comments Sodium (test code = 139 meq/L 765-142 4521-2) Potassium (test 4.1 meq/L 3.5-5.1 code = 2823-3) Chloride (test code 107 meq/L 98-107 = 2075-0) CO2 (test code = 25 meq/L -29 2027-9) BUN (test code = 13 mg/dL - 3094-0) Creatinine (test 0.97 mg/dL 0.57-1.25 code = 2160-0) Glucose (test code 80 mg/dL 70-105 = 2345-7) Calcium (test code 8.9 mg/dL 8.4-10.2 = 74704-6) EGFR (test code = 56 mL/min/1.[address] [place] [address]-5) NOT ACCURATE CREATININE CLEARANCE IN PREDICTING GLOMERULAR FILTRATION RATE . ESTIMATED GFR I S NOT APPLICABLE FOR DIALYSIS PATIEN TS. MACDONALD (test code = Filler Sifter Machine ID - TORRES) PIAYA L [facility] [id number] 07:08:00 Test Item Value Reference Range Interpretation Comments Protein, Total (test 6.9 See_Comment [Autom ated code = 2885-2) message] The system which generated this result transmit lane reference range : 6.0 - 8.3 gm/dL . The reference range was not u sed to interpret th is result as normal/abnormal . Albumin (test code = 3.6 g/dL 3.5-5 91083-1) Total Bilirubin (test 0.3 mg/dL 0.2-1.2 code = 1975-2) Bilirubin, Direct 0.2 mg/dL 0.1-0.5 (test code = 1967-7) Alkaline Phosphatase 56 U/L 40-150 (test code = 6768-6) AST (test code = 37 U/L 5-34 H 1920-8) ALT (test code = 50 U/L 6-55 1742-6) TORRES (test code = TORRES) Filler Sifter Machine ID - TOÑITO Camacho Lab Interpretation Abnormal (test code = 04732-5) [facility] [id number] 07:08:00 Test Item Value Reference Range Interpretation Comments Sodium (test code = 139 meq/L 345-504 0868-2) Potassium (test 4.1 meq/L 3.5-5.1 code = 2823-3) Chloride (test code 107 meq/L 98-107 = 2075-0) CO2 (test code = 25 meq/L 22-29 8-9) BUN (test code = 13 mg/dL 7-21 3094-0) Creatinine (test 0.97 mg/dL 0.57-1.25 code = 2160-0) Glucose (test code 80 mg/dL 70-105 = 2345-7) Calcium (test code 8.9 mg/dL 8.4-10.2 = 82583-1) EGFR (test code = 56 mL/min/1.[address] [place] [address]-0) NOT ACCURATE CREATININE CLEARANCE IN PREDICTING GLOMERULAR FILTRATION RATE . ESTIMATED GFR I S NOT APPLICABLE FOR DIALYSIS PATIEN TS. TORRES (test code = Filler Sifter Machine ID - TORRES) TOÑITO Camacho [facility] [id number] 07:08:00 Test Item Value Reference Range Interpretation Comments Protein, Total (test 6.9 See_Comment [Autom ated code = 2885-2) message] The system which generated this result transmit lane reference range : 6.0 - 8.3 gm/dL . The reference range was not u sed to interpret th is result as normal/abnormal . Albumin (test code = 3.6 g/dL 3.5-5 02088-1) Total Bilirubin (test 0.3 mg/dL 0.2-1.2 code = 1974-2) Bilirubin, Direct 0.2 mg/dL 0.1-0.5 (test code = 1967-7) Alkaline Phosphatase 56 U/L 40-150 (test code = 6768-6) AST (test code = 37 U/L 5-34 H 1920-8) ALT (test code = 50 U/L 6-55 2-6) TORRES (test code = TORRES) Filler Sifter Machine ID - TOÑITO Camacho Lab Interpretation Abnormal (test code = 74842-6) [facility] [id number] 07:08:00 Test Item Value Reference Range Interpretation Comments Sodium (test code = 139 meq/L 977-983 5711-2) Potassium (test 4.1 meq/L 3.5-5.1 code = 2823-3) Chloride (test code 107 meq/L 98-107 = 2075-0) CO2 (test code = 25 meq/L 22-29 8-9) BUN (test code = 13 mg/dL 7-21 3094-0) Creatinine (test 0.97 mg/dL 0.57-1.25 code = 2160-0) Glucose (test code 80 mg/dL 70-105 = 2345-7) Calcium (test code 8.9 mg/dL 8.4-10.2 = 66343-3) EGFR (test code = 56 mL/min/1.[address] [place] [address]-7) NOT ACCURATE CREATININE CLEARANCE IN PREDICTING GLOMERULAR FILTRATION RATE . ESTIMATED GFR I S NOT APPLICABLE FOR DIALYSIS PATIEN TS. TORRES (test code = Filler Sifter Machine ID - TORRES) TOÑITO Camacho [facility] [id number] 07:08:00 Test Item Value Reference Range Interpretation Comments Protein, Total (test 6.9 See_Comment [Autom ated code = 2885-2) message] The system which generated this result transmit lane reference range : 6.0 - 8.3 gm/dL . The reference range was not u sed to interpret th is result as normal/abnormal . Albumin (test code = 3.6 g/dL 3.5-5 02544-5) Total Bilirubin (test 0.3 mg/dL 0.2-1.2 code = 1974-2) Bilirubin, Direct 0.2 mg/dL 0.1-0.5 (test code = 1967-7) Alkaline Phosphatase 56 U/L 40-150 (test code = 6768-6) AST (test code = 37 U/L 5-34 H 1920-8) ALT (test code = 50 U/L 6-55 1742-6) TORRES (test code = TORRES) Filler Sifter Machine ID - TOÑITO Camacho Lab Interpretation Abnormal (test code = 51481-9) [facility] [id number] 07:08:00 Test Item Value Reference Range Interpretation Comments Sodium (test code = 139 meq/L 188-362 0376-2) Potassium (test 4.1 meq/L 3.5-5.1 code = 2823-3) Chloride (test code 107 meq/L 98-107 = 2075-0) CO2 (test code = 25 meq/L 22-29 2027-9) BUN (test code = 13 mg/dL 7-21 3094-0) Creatinine (test 0.97 mg/dL 0.57-1.25 code = 2160-0) Glucose (test code 80 mg/dL 70-105 = 2345-7) Calcium (test code 8.9 mg/dL 8.4-10.2 = 19044-0) EGFR (test code = 56 mL/min/1.[address] [place] [address]-1) NOT ACCURATE CREATININE CLEARANCE IN PREDICTING GLOMERULAR FILTRATION RATE . ESTIMATED GFR I S NOT APPLICABLE FOR DIALYSIS PATIEN TORRES (test code = Filler Sifter Machine ID - TORRES) TOÑITO Camacho [facility] [id number] 07:08:00 Test Item Value Reference Range Interpretation Comments Protein, Total (test 6.9 See_Comment [Autom ated code = 2885-2) message] The system which generated this result transmit lane reference range : 6.0 - 8.3 gm/dL . The reference range was not u sed to interpret th is result as normal/abnormal . Albumin (test code = 3.6 g/dL 3.5-5 90620-4) Total Bilirubin (test 0.3 mg/dL 0.2-1.2 code = 1974-2) Bilirubin, Direct 0.2 mg/dL 0.1-0.5 (test code = 1967-7) Alkaline Phosphatase 56 U/L 40-150 (test code = 6768-6) AST (test code = 37 U/L 5-34 H 1920-8) ALT (test code = 50 U/L 6-55 1742-6) TORRES (test code = TORRES) Filler Sifter Machine ID - RADHAJOVANNI L Lab Interpretation Abnormal (test code = 82956-9) [facility] [id number] 07:08:00 Test Item Value Reference Range Interpretation [...] S NOT APPLICABLE FOR DIALYSIS PATIEN TS. Filler Sifter Machine ID - PIAYA LHEPATIC FUNCTION [id number] 07:08:00 Test Item Value Reference Range Interpretation [...] (test code = 50 U/L 6-55 347) Filler Sifter Machine ID - TOÑITO LCBC with platelet count + automated [id number] 06:01:00 Test Item Value Reference Range Interpretation Comments WBC (test code = 6690-2) 7.9 See_Comment [A utomated message] The system [employer] generated this result transmitted ref erence range: 3.5 - 10 .5 K/L. The refe rence range was not u sed to interpret this result as normal/abnor mal. RBC (test code = 789-8) 3.22 See_Comment L [Au tomated message] The system [employer] generated this result transmitted ref erence range: 3.93 - 5 .22 M/L. The refe rence range was not u sed to interpret this result as normal/abnor mal. MCHC (test code = 786-4) 31.8 See_Comment L [A utomated message] The system [employer] generated this result transmitted ref erence range: [...] code = 282 See_Comment [Aut omated message] 257-3) The system [employer] generated this result transmitted ref erence range: 150 - 45 0 K/CU MM. The referen ce range was not u sed to interpret this result as normal/abnor mal. MPV (test code = 8.9 fL 9.4-12.3 L 16006-2) nRBC (test code = 413) 0 See_Comment [Aut omated message] The system [employer] generated this result transmitted ref erence range: [...] See_Comment [Aut omated message] 670) The system [employer] generated this result transmitted ref erence range: 1.56 - 6 .13 K/L. The refe rence range was not u sed to interpret this result as normal/abnor mal. # Lymphs (test code = 2.20 See_Comment [Auto mated message] 414) The system [employer] generated this result transmitted ref erence range: 1.18 - 3 .74 K/L. The refe rence range was not u sed to interpret this result as normal/abnor mal. # Monos (test code = 0.54 See_Comment H [Autom ated message] 415) The system [employer] generated this result transmitted ref erence range: 0.24 - 0 .36 K/L. The refe rence range was not u sed to interpret this result as normal/abnor mal. # Eos (test code = 416) 0.08 See_Comment [Au tomated message] The system [employer] generated this result transmitted ref erence range: 0.04 - 0 .36 K/L. The refe rence range was not u sed to interpret this result as normal/abnor mal. # Baso (test code = 417) 0.03 See_Comment [A utomated message] The system [employer] generated this result transmitted ref erence range: 0.01 - 0 .08 K/L. The refe rence range was not u sed to interpret this result as normal/abnor mal. Immature 0 % 0-1 Granulocytes-Relative (test code = 2801) Lab Interpretation (test Abnormal code = 18943-4) [facility] + automated [id number] 06:01:00 Test Item Value Reference Range Interpretation Comments WBC (test code = 6690-2) 7.9 See_Comment [A utomated message] The system [employer] generated this result transmitted ref erence range: 3.5 - 10 .5 K/L. The refe rence range was not u sed to interpret this result as normal/abnor mal. RBC (test code = 789-8) 3.22 See_Comment L [Au tomated message] The system [employer] generated this result transmitted ref erence range: 3.93 - 5 .22 M/L. The refe rence range was not u sed to interpret this result as normal/abnor mal. MCHC (test code = 786-4) 31.8 See_Comment L [A utomated message] The system [employer] generated this result transmitted ref erence range: [...] See_Comment [Aut omated message] 777-3) The system [employer] generated this result transmitted ref erence range: 150 - 45 0 K/CU MM. The referen ce range was not u sed to interpret this result as normal/abnor mal. MPV (test code = 8.9 fL 9.4-12.3 L 40503-2) nRBC (test code = 413) 0 See_Comment [Aut omated message] The system [employer] generated this result transmitted ref erence range: [...] See_Comment [Aut omated message] 670) The system [employer] generated this result transmitted ref erence range: 1.56 - 6 .13 K/L. The refe rence range was not u sed to interpret this result as normal/abnor mal. # Lymphs (test code = 2.20 See_Comment [Auto mated message] 414) The system [employer] generated this result transmitted ref erence range: 1.18 - 3 .74 K/L. The refe rence range was not u sed to interpret this result as normal/abnor mal. # Monos (test code = 0.54 See_Comment H [Autom ated message] 415) The system [employer] generated this result transmitted ref erence range: 0.24 - 0 .36 K/L. The refe rence range was not u sed to interpret this result as normal/abnor mal. # Eos (test code = 416) 0.08 See_Comment [Au tomated message] The system [employer] generated this result transmitted ref erence range: 0.04 - 0 .36 K/L. The refe rence range was not u sed to interpret this result as normal/abnor mal. # Baso (test code = 417) 0.03 See_Comment [A utomated message] The system [employer] generated this result transmitted ref erence range: 0.01 - 0 .08 K/L. The refe rence range was not u sed to interpret this result as normal/abnor mal. Immature 0 % 0-1 Granulocytes-Relative (test code = 2801) Lab Interpretation (test Abnormal code = 05426-3) [facility] with platelet count + automated [id number] 06:01:00 Test Item Value Reference Range Interpretation Comments WBC (test code = 6690-2) 7.9 See_Comment [A utomated message] The system [employer] generated this result transmitted ref erence range: 3.5 - 10 .5 K/L. The refe rence range was not u sed to interpret this result as normal/abnor mal. RBC (test code = 789-8) 3.22 See_Comment L [Au tomated message] The system [employer] generated this result transmitted ref erence range: 3.93 - 5 .22 M/L. The refe rence range was not u sed to interpret this result as normal/abnor mal. MCHC (test code = 786-4) 31.8 See_Comment L [A utomated message] The system [employer] generated this result transmitted ref erence range: [...] See_Comment [Aut omated message] 777-3) The system [employer] generated this result transmitted ref erence range: 150 - 45 0 K/CU MM. The referen ce range was not u sed to interpret this result as normal/abnor mal. MPV (test code = 8.9 fL 9.4-12.3 L 59522-4) nRBC (test code = 413) 0 See_Comment [Aut omated message] The system [employer] generated this result transmitted ref erence range: [...] See_Comment [Aut omated message] 670) The system [employer] generated this result transmitted ref erence range: 1.56 - 6 .13 K/L. The refe rence range was not u sed to interpret this result as normal/abnor mal. # Lymphs (test code = 2.20 See_Comment [Auto mated message] 414) The system [employer] generated this result transmitted ref erence range: 1.18 - 3 .74 K/L. The refe rence range was not u sed to interpret this result as normal/abnor mal. # Monos (test code = 0.54 See_Comment H [Autom ated message] 415) The system [employer] generated this result transmitted ref erence range: 0.24 - 0 .36 K/L. The refe rence range was not u sed to interpret this result as normal/abnor mal. # Eos (test code = 416) 0.08 See_Comment [Au tomated message] The system [employer] generated this result transmitted ref erence range: 0.04 - 0 .36 K/L. The refe rence range was not u sed to interpret this result as normal/abnor mal. # Baso (test code = 417) 0.03 See_Comment [A utomated message] The system [employer] generated this result transmitted ref erence range: 0.01 - 0 .08 K/L. The refe rence range was not u sed to interpret this result as normal/abnor mal. Immature 0 % 0-1 Granulocytes-Relative (test code = 2801) Lab Interpretation (test Abnormal code = 69919-2) [facility] with platelet count + automated [id number] 06:01:00 Test Item Value Reference Range Interpretation Comments WBC (test code = 6690-2) 7.9 See_Comment [A utomated message] The system [employer] generated this result transmitted ref erence range: 3.5 - 10 .5 K/L. The refe rence range was not u sed to interpret this result as normal/abnor mal. RBC (test code = 789-8) 3.22 See_Comment L [Au tomated message] The system [employer] generated this result transmitted ref erence range: 3.93 - 5 .22 M/L. The refe rence range was not u sed to interpret this result as normal/abnor mal. MCHC (test code = 786-4) 31.8 See_Comment L [A utomated message] The system [employer] generated this result transmitted ref erence range: [...] See_Comment [Aut omated message] 777-3) The system [employer] generated this result transmitted ref erence range: 150 - 45 0 K/CU MM. The referen ce range was not u sed to interpret this result as normal/abnor mal. MPV (test code = 8.9 fL 9.4-12.3 L 23269-2) nRBC (test code = 413) 0 See_Comment [Aut omated message] The system [employer] generated this result transmitted ref erence range: [...] See_Comment [Aut omated message] 670) The system [employer] generated this result transmitted ref erence range: 1.56 - 6 .13 K/L. The refe rence range was not u sed to interpret this result as normal/abnor mal. # Lymphs (test code = 2.20 See_Comment [Auto mated message] 414) The system [employer] generated this result transmitted ref erence range: 1.18 - 3 .74 K/L. The refe rence range was not u sed to interpret this result as normal/abnor mal. # Monos (test code = 0.54 See_Comment H [Autom ated message] 415) The system [employer] generated this result transmitted ref erence range: 0.24 - 0 .36 K/L. The refe rence range was not u sed to interpret this result as normal/abnor mal. # Eos (test code = 416) 0.08 See_Comment [Au tomated message] The system [employer] generated this result transmitted ref erence range: 0.04 - 0 .36 K/L. The refe rence range was not u sed to interpret this result as normal/abnor mal. # Baso (test code = 417) 0.03 See_Comment [A utomated message] The system [employer] generated this result transmitted ref erence range: 0.01 - 0 .08 K/L. The refe rence range was not u sed to interpret this result as normal/abnor mal. Immature 0 % 0-1 Granulocytes-Relative (test code = 2801) Lab Interpretation (test Abnormal code = 00951-8) [facility] W/PLT COUNT & AUTO [id number] 06:01:00 Test Item Value Reference Range Interpretation [...] (BEAKER) (test code = 2801) ECG 12 [id number] 06:47:19Interface, External Ris In - 05/05/2021 6:47 AM CDTVentricular Rate 91 BPMAtrial Rate 91 BPMP-R Interval 126 msQRS Duration 78 msQ-T Interval 352 msQTC Calculation(Bazett) 432 msP [place] 44 degreesR Axis28 degreesT [place] 39 degreesNormal sinus rhythmNormal ECGNo previous ECGs availableConfirmed by MD BELLAMY JOSEPH P ([id number]) on 05/05/2021 6:47:15 [facility] [id number] 06:47:19Interface, External Ris In - 05/05/2021 6:47 AM CDTVentricular Rate 91 BPMAtrial Rate 91 BPMP-R Interval 126 msQRS Duration 78 msQ-T Interval 352 msQTC Calculation(Bazett) 432 msP [place] 44 degreesR Axis28 degreesT [place] 39 degreesNormal sinus rhythmNormal ECGNo previous ECGs availableConfirmed by MD BELLAMY JOSEPH P ([id number]) on 05/05/2021 6:47:15 [facility] [id number] 06:47:19Interface, External Ris In - 05/05/2021 6:47 AM CDTVentricular Rate 91 BPMAtrial Rate 91 BPMP-R Interval 126 msQRS Duration 78 msQ-T Interval 352 msQTC Calculation(Bazett) 432 msP [place] 44 degreesR Axis28 degreesT [place] 39 degreesNormal sinus rhythmNormal ECGNo previous ECGs availableConfirmed by MD BELLAMY JOSEPH P ([id number]) on 05/05/2021 6:47:15 [facility] ECG 12 [id number] 06:47:19Interface, External Ris In - 05/05/2021 6:47 AM CDTVentricular Rate 91 BPMAtrial Rate 91 BPMP-R Interval 126 msQRS Duration 78 msQ-T Interval 352 msQTC Calculation(Bazett) 432 msP [place] 44 degreesR Axis28 degreesT [place] 39 degreesNormal sinus rhythmNormal ECGNo previous ECGs availableConfirmed by MD BELLAMY JOSEPH P ([id number]) on 05/05/2021 6:47:15 [facility]AB[facility], [id number] 06:17:00 Test Item Value Reference Range Interpretation Comments ABO Grouping (test code = 2588) O Rh Factor (test code = 2589) [facility], [id number] 06:17:00 Test Item Value Reference Range Interpretation Comments ABO Grouping (test code = 2588) O Rh Factor (test code = 2589) [facility], [id number] 06:17:00 Test Item Value Reference Range Interpretation Comments ABO Grouping (test code = 2588) O Rh Factor (test code = 2589) [facility], [id number] 06:17:00 Test Item Value Reference Range Interpretation Comments ABO Grouping (test code = 2588) O Rh Factor (test code = 2589) [facility] 2021-05-05 05:01:00 Test Item Value Reference Range Interpretation Comments ABO/RH AUTOMATED (BEAKER) (test O POSITIVE code = 2260) Ab Scrn (test code = 890-4) NEGATIVE [facility] 2021-05-05 05:01:00 Test Item Value Reference Range Interpretation Comments ABO/RH AUTOMATED (BEAKER) (test O POSITIVE code = 2260) Ab Scrn (test code = 890-4) NEGATIVE [facility] ([facility]) 2021-05-05 05:01:00 Test Item Value Reference Range Interpretation Comments ABO/RH AUTOMATED (BEAKER) (test O POSITIVE code = 2260) Ab Scrn (test code = 890-4) NEGATIVE [facility] ([facility]) 2021-05-05 05:01:00 Test Item Value Reference Range Interpretation Comments ABO/RH AUTOMATED (BEAKER) (test O POSITIVE code = 2260) Ab Scrn (test code = 890-4) NEGATIVE [facility]PT/[id number] 04:35:00 Test Item Value Reference Interpretation Comments [...] valves. Lab Interpretation Normal (test code = 92778-0) [facility]/[id number] 04:35:00 Test Item Value Reference Interpretation Comments [...] valves. Lab Interpretation Normal (test code = 31842-5) [facility]PT/[id number] 04:35:00 Test Item Value Reference Interpretation Comments [...] valves. Lab Interpretation Normal (test code = 04079-4) [facility]PT/[id number] 04:35:00 Test Item Value Reference Interpretation Comments [...] valves. Lab Interpretation Normal (test code = 44874-7) [facility] HospitalPROTHROMBIN TIME/[id number] 04:35:00 Test Item Value Reference Range Interpretation Comments PROTIME (BEAKER) 13.7 seconds 11.9-14.2 (test code = 759) INR (BEAKER) (test 1.07 See_Comment [Automat ed message] code = 370) The system [employer] generated this result transmitted ref erence range: <=5.90. The reference range was not used to int erpret this result as normal/abnormal . RECOMMENDED COUMADIN/WARFARIN INR THERAPY RANGESSTANDARD DOSE: 2.0 - 3.0 Includes: PROPHYLAXIS for venous thrombosis, systemic embolization; TREATMENT for venous thrombosis and/or pulmonary embolus.HIGH RISK: Target INR is 2.5-3.5 for patients with mechanical heart valves.High Sensitivity Troponin [id number] 01:56:00 Test Item Value Reference Range Interpretation Comments Troponin I HS (test <4 See_Comment [Respiricsa lane code = 00941-2) message] The system which generated this result transmitted reference range : <=17 pg/ml. The reference range was not used to interpret this result as normal/abnormal . TORRES (test code = Filler Sifter Machine ID - TORRES) DBTOther Machine SIGNALER STAT High Sensitivity Troponin-I results should be used in conjunction with other diagnostic information such as ECG, clinical observations and information, and patient symptoms to aid in the diagnosis of [place]. Lab Interpretation Normal (test code = 44764-6) [facility]High [facility] Troponin [id number] 01:56:00 Test Item Value Reference Range Interpretation Comments Troponin I HS (test <4 See_Comment [Automa lane code = 87246-6) message] The system which generated this result transmitted reference range : <=17 pg/ml. The reference range was not used to interpret this result as normal/abnormal . TORRES (test code = Filler [employer]ifter Machine ID - TORRES) DBThe SIGNALER STAT High Sensitivity Troponin-I results should be used in conjunction with other diagnostic information such as ECG, clinical observations and information, and patient symptoms to aid in the diagnosis of [place]. Lab Interpretation Normal (test code = 76135-8) [facility] Troponin [id number] 01:56:00 Test Item Value Reference Range Interpretation Comments Troponin I HS (test <4 See_Comment [Automa lane code = 81530-5) message] The system which generated this result transmitted reference range : <=17 pg/ml. The reference range was not used to interpret this result as normal/abnormal . TORRES (test code = [employer]ifter Machine ID - TORRES) DBThe SIGNALER STAT High Sensitivity Troponin-I results should be used in conjunction with other diagnostic information such as ECG, clinical observations and information, and patient symptoms to aid in the diagnosis of [place]. Lab Interpretation Normal (test code = 98456-4) [facility] Troponin [id number] 01:56:00 Test Item Value Reference Range Interpretation Comments Troponin I HS (test <4 See_Comment [Automa lane code = 68190-3) message] The system which generated this result transmitted reference range : <=17 pg/ml. The reference range was not used to interpret this result as normal/abnormal . TORRES (test code = [employer]iller [employer]ifter Machine ID - TORRES) DBThe SIGNALER STAT High Sensitivity Troponin-I results should be used in conjunction with other diagnostic information such as ECG, clinical observations and information, and patient symptoms to aid in the diagnosis of [place]. Lab Interpretation Normal (test code = 58538-5) [facility] HospitalHIGH SENSITIVITY TROPONIN [id number] 01:56:00 Test Item Value Reference Range Interpretation Comments HIGH SENSITIVITY < pg/ml See_Comment [Automated message] TROPONIN I (test code = The system which 8556605) generated this result transmitted ref erence range: <=17. Th e reference range was not used to interpr et this result as normal/abnormal . [employer] Machine ID - DBThe SIGNALER STAT High Sensitivity Troponin-I results should be used in conjunctionwith other diagnostic information such as ECG, clinical observations and information, and patient symptoms to aid in the diagnosis of [place].Ketones, [id number] 01:40:00 Test Item Value Reference Range Interpretation Comments Ketones, Blood (test code = 1103) 0.4 mmol/L <0.4 H Lab Interpretation (test code = Abnormal 31666-2) [facility] HospitalKetana, [id number] 01:40:00 Test Item Value Reference Range Interpretation Comments Ketones, Blood (test code = 1103) 0.4 mmol/L <0.4 H Lab Interpretation (test code = Abnormal 21101-6) [facility] [id number] 01:40:00 Test Item Value Reference Range Interpretation Comments Ketones, Blood (test code = 1103) 0.4 mmol/L <0.4 H Lab Interpretation (test code = Abnormal 31256-7) [facility] [id number] 01:40:00 Test Item Value Reference Range Interpretation Comments Ketones, Blood (test code = 1103) 0.4 mmol/L <0.4 H Lab Interpretation (test code = Abnormal 56980-7) [facility] [id number] 01:40:00 Test Item Value Reference Range Interpretation Comments KETONES, BLOOD (BEAKER) (test code 0.4 mmol/L <0.4 H = 1103) SARS-CoV2/RT-PCR (Asymptomatic ONLY)2021-05-05 01:30:00 Test Item Value Reference Interpretation Comments Range SARS-COV2/RT-PCR Negative Negative The SARS-Co V-2 (test code = target nucleic 45973-5) acids are not detected in thi s [...] revoked sooner. Fact Sheet for Healthcare Providers: https://www.Zang/Documents/Xp ert%20Xpress%20SAR S%20CoV-2/Fact%20S heets/302-3802%20S ARS-COV-2%20HEALTH CARE%20PROVIDERS%2 0FACT%20SHEET.pdf Fact Sheet for Healthcare Patients: https://www.Zang/Documents/Xp ert%20Xpress%20SAR S%20CoV-2/Fact%20S heets/302-3801%20S ARS-COV-2%20PATIEN T%20FACT%20SHEET.p df Lab Interpretation Normal (test code = 19882-5) [facility]2021-05-05 01:30:00 Test Item Value Reference Interpretation Comments Range SARS-COV2/RT-PCR Negative Negative The SARS-Co V-2 (test code = target nucleic 63006-4) acids are not detected in thi s [...] revoked sooner. Fact Sheet for Healthcare Providers: https://www.Zang/Documents/Xp ert%20Xpress%20SAR S%20CoV-2/Fact%20S heets/302-3802%20S ARS-COV-2%20HEALTH CARE%20PROVIDERS%2 0FACT%20SHEET.pdf Fact Sheet for Healthcare Patients: https://www.Zang/Documents/Xp ert%20Xpress%20SAR S%20CoV-2/Fact%20S heets/302-3801%20S ARS-COV-2%20PATIEN T%20FACT%20SHEET.p df Lab Interpretation Normal (test code = 11320-6) [facility]Asymptomatic ONLY)2021-05-05 01:30:00 Test Item Value Reference Interpretation Comments Range SARS-COV2/RT-PCR Negative Negative The SARS-Co V-2 (test code = target nucleic 52458-8) acids are not detected in thi s [...] revoked sooner. Fact Sheet for Healthcare Providers: https://www.Zang/Documents/Xp ert%20Xpress%20SAR S%20CoV-2/Fact%20S heets/302-3802%20S ARS-COV-2%20HEALTH CARE%20PROVIDERS%2 0FACT%20SHEET.pdf Fact Sheet for Healthcare Patients: https://www.Zang/Documents/Xp ert%20Xpress%20SAR S%20CoV-2/Fact%20S heets/302-3801%20S ARS-COV-2%20PATIEN T%20FACT%20SHEET.p df Lab Interpretation Normal (test code = 50387-0) [facility]omatic ONLY)2021-05-05 01:30:00 Test Item Value Reference Interpretation Comments Range SARS-COV2/RT-PCR Negative Negative The SARS-Co V-2 (test code = target nucleic 37559-3) acids are not detected in thi s [...] revoked sooner. Fact Sheet for Healthcare Providers: https://www.Zang/Documents/Xp ert%20Xpress%20SAR S%20CoV-2/Fact%20S heets/302-3802%20S ARS-COV-2%20HEALTH CARE%20PROVIDERS%2 0FACT%20SHEET.pdf Fact Sheet for Healthcare Patients: https://www.Zang/Documents/Xp ert%20Xpress%20SAR S%20CoV-2/Fact%20S heets/302-3801%20S ARS-COV-2%20PATIEN T%20FACT%20SHEET.p df Lab Interpretation Normal (test code = 87511-7) [facility])2021-05-05 01:30:00 Test Item Value Reference Range Interpretation Comments SARS-COV2/RT-PCR Negative Negative The SARS-Co V-2 target (test code = nucleic acids a re not 9552874) detected in thi s specimen. Negative result [...] revoked sooner. Fact Sheet for Healthcare Providers: https://wwwRightSignature m/Documents/Xpert%20Xpress%20SARS%20CoV-2/Fact%20Sheets/302-3802%54LGHE-FIL-4%20 HEALTHCARE%20PROVIDERS%20FACT%20SHEET.pdf Fact Sheet for Healthcare Patients: https://www.TestQuest.If You Can/Documents/Xpert%20Xp ress%20SARS%20CoV-2/Fact%20Sheets/302-3801%36RVPZ-AWI-8%20PATIENT%20FACT%20SHEET .pdfBlood gas, [id number] 01:22:00 Test Item Value Reference Range Interpretation [...] Niranjan (test code = 21 mmol/L 21-29 91466-9) Base Excess, Niranjan (test -4.5 mmol/L -2-3 L code = 1927-3) Patient Temperature 37.0 (test code = 8310-5) FIO2 (test code = 1819) 21 Lab Interpretation Abnormal (test code = 81805-9) [facility], [id number] 01:22:00 Test Item Value Reference Range Interpretation [...] Niranjan (test code = 21 mmol/L 21-29 91099-0) Base Excess, Niranjan (test -4.5 mmol/L -2-3 L code = 1927-3) Patient Temperature 37.0 (test code = 8310-5) FIO2 (test code = 1819) 21 Lab Interpretation Abnormal (test code = 69763-7) [facility] gas, [id number] 01:22:00 Test Item Value Reference Range Interpretation [...] Niranjan (test code = 21 mmol/L 21-29 61864-9) Base Excess, Niranjan (test -4.5 mmol/L -2-3 L code = 1927-3) Patient Temperature 37.0 (test code = 8310-5) FIO2 (test code = 1819) 21 Lab Interpretation Abnormal (test code = 11672-6) [facility] gas, [id number] 01:22:00 Test Item Value Reference Range Interpretation [...] Niranjan (test code = 21 mmol/L 21-29 37326-8) Base Excess, Niranjan (test -4.5 mmol/L -2-3 L code = 1927-3) Patient Temperature 37.0 (test code = 8310-5) FIO2 (test code = 1819) 21 Lab Interpretation Abnormal (test code = 64737-8) [facility] [id number] 01:22:00 Test Item Value Reference Range Interpretation [...] (BEAKER) (test code = 1819) 21.0 ECG/EKG [id number] 23:15:17Cherie Faustin MD 05/05/2021 2:11 AMECG/EKG Interpretation Date/Time: 05/04/2021 11:26 PMPerformed by: Cherie Faustin MDAuthorized by: Cherie Faustin MD The ECG was interpreted by ED physician. The ECG is interpreted as sinus rhythm. Rate is normal rate. Heart rate is 91 BPM.ST segments normal.T-wave inversion in lead(s) V1 and V2. Clinical Impression: normal [facility]GC[facility] HospitalECG/EKG Interpretation 2021-05-04 23:15:17Cherie Faustin MD 05/05/2021 2:11 AMECG/EKG Interpretation Date/Time: 05/04/2021 11:26 PMPerformedby: Cherie Faustin MDAuthorized by: Cherie Faustin MD The ECG was interpreted by ED physician.The ECG is interpreted as sinus rhythm. Rate is normal rate. Heart rate is 91 BPM.ST segments normal. T-wave inversion in lead(s) V1 and V2. Clinical Impression: normal ECGCH[facility] CenterECG/EKG [id number] 23:15:17 Cherie Faustin MD 05/05/2021 2:11 AMECG/EKG Interpretation Date/Time: 05/04/2021 11:26 PMPerformed by: Cherie Faustin MDAuthorized by: Cherie Faustin MD The ECG was interpreted by ED physician. The ECG is interpreted as sinus rhythm. Rate is normal rate. Heart rate is 91 BPM.ST segments normal.T- wave inversion in lead(s) V1 and V2. Clinical Impression: normal ECGCHI [facility] CenterECG/EKG [id number] 23:15:17Cherie Faustin MD 05/05/2021 2:11 AMECG/EKG Interpretation Date/Time: 05/04/2021 11:26 PMPerformed b y: Cherie Faustin MDAuthorized by: Cherie Faustin MD The ECG was interpreted by ED physician. The ECG is interpreted as sinus rhythm. Rate is normal rate. Heart rate is 91 BPM.ST segments normal.T-wave inversion in lead(s) V1 and V2. Clinical Impression: normal ECGCentral [facility] General HospitalHEPATIC FUNCTION [id number] 22:01:00 Test Item Value Reference Range Interpretation [...] Specimen moderately (test code = 347) hemolyzed Filler Sifter Machine ID - [id number] 21:53:00 Test Item Value Reference Range Interpretation Comments Amylase (test code = 143 U/L 25-125 H Specime n 1798-8) markedly hemolyzed TORRES (test code = TORRES) Filler Sifter Machine ID - DB Lab Interpretation Abnormal (test code = 26606-3) [facility] HospitalLipase2021-[facility] 21:53:00 Test Item Value Reference Range Interpretation Comments Lipase (test code = 3040-3) 97 U/L 8-78 H TORRES (test code = TORRES) Filler Sifter Machine ID - DB Lab Interpretation (test Abnormal code = 98000-6) [facility] HospitalAmylase2021-08-23 21:53:00 Test Item Value Reference Range Interpretation Comments Amylase (test code = 143 U/L 25-125 H Specime n 1798-8) markedly hemolyzed TORRES (test code = TORRES) Filler Sifter Machine ID - DB Lab Interpretation Abnormal (test code = 93678-6) [facility] HospitalLipase2021-08-23 21:53:00 Test Item Value Reference Range Interpretation Comments Lipase (test code = 3040-3) 97 U/L 8-78 H TORRES (test code = TORRES) Filler Sifter Machine ID - DB Lab Interpretation (test Abnormal code = 73396-0) [facility] HospitalAmylase2021-08-23 21:53:00 Test Item Value Reference Range Interpretation Comments Amylase (test code = 143 U/L 25-125 H Specime n 1798-8) markedly hemolyzed TORRES (test code = TORRES) Filler Sifter Machine ID - DB Lab Interpretation Abnormal (test code = 60557-6) [facility] HospitalLip[facility]2021-08-[facility] 21:53:00 Test Item Value Reference Range Interpretation Comments Lipase (test code = 3040-3) 97 U/L 8-78 H TORRES (test code = TORRES) Filler Sifter Machine ID - DB Lab Interpretation (test Abnormal code = 72268-2) [facility] HospitalAmylase2021-08-23 21:53:00 Test Item Value Reference Range Interpretation Comments Amylase (test code = 143 U/L 25-125 H Specime n 1798-8) markedly hemolyzed TORRES (test code = TORRES) Filler Sifter Machine ID - DB Lab Interpretation Abnormal (test code = 14093-1) [facility] HospitalLipase2021-[facility] 21:53:00 Test Item Value Reference Range Interpretation Comments Lipase (test code = 3040-3) 97 U/L 8-78 H TORRES (test code = TORRES) Filler Sifter Machine ID - DB Lab Interpretation (test Abnormal code = 25660-0) [facility] HospitalBASIC METABOLIC [id number] 21:53:00 Test Item Value Reference Range Interpretation [...] S NOT APPLICABLE FOR DIALYSIS PATIEN TS. Filler Sifter Machine ID - [id number] 21:53:00 Test Item Value Reference Range Interpretation Comments AMYLASE (BEAKER) (test 143 U/L 25-125 H Speci men markedly code = 349) hemolyzed Filler Sifter Machine ID - [id number] 21:53:00 Test Item Value Reference Range Interpretation Comments LIPASE (BEAKER) (test code = 749) 97 U/L 8-78 H [employer]iller Sifter Machine ID - DBCBC W/PLT COUNT & AUTO [id number] 19:51:00 Test Item Value Reference Range Interpretation [...] ABSOLUTE COUNT 0.03 K/ L 0.04-0.36 L (AKER) (test code = 416) BASOPHILS ABSOLUTE COUNT (AKER) 0.02 K/ L 0.01-0.08 (test code = 417) IMMATURE GRANULOCYTES-RELATIVE 0 % 0-1 PERCENT (AKER) (test code = 2801) POC-Glucose [id number] 08:41:00 Test Item Value Reference Range Interpretation Comments POC-Glucose Meter (test 104 mg/dL 70-110 : TE STED AT [facility] code = 1538) [address] [place] [address], [address] 30: Filler Sifter Machine/Techni aldo ID = [id number] for ROCKY LEMONIE Lab Interpretation (test Normal code = 21062-8) [facility]-Glucose [id number] 08:41:00 Test Item Value Reference Range Interpretation Comments POC-Glucose Meter (test 104 mg/dL 70-110 : TE STED AT [facility] code = 1538) [address] [place] [address], 770 30: Filler Sifter Machine/Techni aldo ID = [id number] for XOCHILT HUSSEIN Lab Interpretation (test Normal code = 88283-8) [facility]-Glucose [id number] 08:41:00 Test Item Value Reference Range Interpretation Comments POC-Glucose Meter (test 104 mg/dL 70-110 : TE STED AT [facility] code = 1538) [address] [place] [address], [address] 30: Filler Sifter Machine/Techni aldo ID = [id number] for LEMON HUSSEIN Lab Interpretation (test Normal code = 22258-6) [facility]-Glucose [id number] 08:41:00 Test Item Value Reference Range Interpretation Comments POC-Glucose Meter (test 104 mg/dL 70-110 : TE STED AT [facility] code = 1538) [address] [place] [address], 770 30: Filler Sifter Machine/Techni aldo ID = [id number] for XOCHILT HUSSEIN Lab Interpretation (test Normal code = 41806-4) [facility]-GLUCOSE [id number] 08:41:00 Test Item Value Reference Range Interpretation Comments POC-GLUCOSE METER 104 mg/dL 70-110 : TESTED A T [facility] 6720 ([facility]) (test code = [facility], 1538) [address]: Filler Sifter Machine/Techni aldo ID = [id number] for HUSSEIN DAVID Comprehensive metabolic [id number] 06:49:00 Test Item Value Reference Range Interpretation Comments Protein, Total (test 6.8 See_Comment [Autom ated code = 2885-2) message] The system which generated this result transmit lane reference range : 6.0 - 8.3 gm/dL . The reference range was not u sed to interpret th is result as normal/abnormal . Albumin (test code = 3.5 g/dL 3.5-5 41374-1) Alkaline Phosphatase 44 U/L 40-150 (test code = 6768-6) Total Bilirubin (test 0.3 mg/dL 0.2-1.2 code = 1974-2) Sodium (test code = 139 meq/L 403-129 5917-2) Potassium (test code 3.8 meq/L 3.5-5.1 = 2823-3) Chloride (test code = 104 meq/L 98-107 2075-0) CO2 (test code = 27 meq/L 22-29 2028-9) BUN (test code = 12 mg/dL 7-21 3094-0) Creatinine (test code 1.05 mg/dL 0.57-1.25 = 2160-0) Glucose (test code = 79 mg/dL 70-105 2345-7) Calcium (test code = 8.4 mg/dL 8.4-10.2 82112-4) AST (test code = 49 U/L 5-34 H 1920-8) ALT (test code = 41 U/L 6-55 1742-6) EGFR (test code = 52 mL/min/1.[address] [place] [address]-2) NOT ACCURATE CREATININE CLEARANCE IN PREDICTING GLOMERULAR FILTRATION RATE . ESTIMATED GFR I S NOT APPLICABLE FOR DIALYSIS PATIEN TS. TORRES (test code = TORRES) Filler Sifter Machine ID - HUMBLE Porter Lab Interpretation Abnormal (test code = 12481-9) [facility] [id number] 06:49:00 Test Item Value Reference Range Interpretation Comments Protein, Total (test 6.8 See_Comment [Autom ated code = 2885-2) message] The system which generated this result transmit lane reference range : 6.0 - 8.3 gm/dL . The reference range was not u sed to interpret th is result as normal/abnormal . Albumin (test code = 3.5 g/dL 3.5-5 03205-1) Alkaline Phosphatase 44 U/L 40-150 (test code = 6768-6) Total Bilirubin (test 0.3 mg/dL 0.2-1.2 code = 1974-10) Sodium (test code = 139 meq/L 610-284 4226-2) Potassium (test code 3.8 meq/L 3.5-5.1 = 2823-3) Chloride (test code = 104 meq/L 98-107 2075-0) CO2 (test code = 27 meq/L 22-29 2028-9) BUN (test code = 12 mg/dL 7-21 3094-0) Creatinine (test code 1.05 mg/dL 0.57-1.25 = 2160-0) Glucose (test code = 79 mg/dL 70-105 2345-7) Calcium (test code = 8.4 mg/dL 8.4-10.2 48457-2) AST (test code = 49 U/L 5-34 H 1920-8) ALT (test code = 41 U/L 6-55 1742-6) EGFR (test code = 52 mL/min/1.[address] [place] [address]-1) NOT ACCURATE CREATININE CLEARANCE IN PREDICTING GLOMERULAR FILTRATION RATE . ESTIMATED GFR I S NOT APPLICABLE FOR DIALYSIS PATIEN TSKenrick TORRES (test code = TORRES) Filler Sifter Machine ID - HUMBLE M Lab Interpretation Abnormal (test code = 10653-2) [facility] [id number] 06:49:00 Test Item Value Reference Range Interpretation Comments Protein, Total (test 6.8 See_Comment [Autom ated code = 2885-2) message] The system which generated this result transmit lane reference range : 6.0 - 8.3 gm/dL . The reference range was not u sed to interpret th is result as normal/abnormal . Albumin (test code = 3.5 g/dL 3.5-5 87485-0) Alkaline Phosphatase 44 U/L 40-150 (test code = 6768-6) Total Bilirubin (test 0.3 mg/dL 0.2-1.2 code = 1974-10) Sodium (test code = 139 meq/L 908-339 1613-2) Potassium (test code 3.8 meq/L 3.5-5.1 = 2823-3) Chloride (test code = 104 meq/L 98-107 5-0) CO2 (test code = 27 meq/L -2028-05) BUN (test code = 12 mg/dL 7-21 3094-0) Creatinine (test code 1.05 mg/dL 0.57-1.25 = 2160-0) Glucose (test code = 79 mg/dL 70-105 2345-7) Calcium (test code = 8.4 mg/dL 8.4-10.2 72112-0) AST (test code = 49 U/L 5-34 H 192-8) ALT (test code = 41 U/L 6-55 1741-6) EGFR (test code = 52 mL/min/1.[address] [place] [address]-7) NOT ACCURATE CREATININE CLEARANCE IN PREDICTING GLOMERULAR FILTRATION RATE . ESTIMATED GFR I S NOT APPLICABLE FOR DIALYSIS PATIEN TSKenrick TORRES (test code = TORRES) Filler Sifter Machine ID - HUMBLE M Lab Interpretation Abnormal (test code = 42137-8) [facility] [id number] 06:49:00 Test Item Value Reference Range Interpretation Comments Protein, Total (test 6.8 See_Comment [Autom ated code = 2885-2) message] The system which generated this result transmit lane reference range : 6.0 - 8.3 gm/dL . The reference range was not u sed to interpret th is result as normal/abnormal . Albumin (test code = 3.5 g/dL 3.5-5 80157-3) Alkaline Phosphatase 44 U/L 40-150 (test code = 6768-6) Total Bilirubin (test 0.3 mg/dL 0.2-1.2 code = 1974-) Sodium (test code = 139 meq/L 883-666 5413-2) Potassium (test code 3.8 meq/L 3.5-5.1 = 2823-3) Chloride (test code = 104 meq/L 98-107 5-0) CO2 (test code = 27 meq/L -2028-05) BUN (test code = 12 mg/dL 7-21 3094-0) Creatinine (test code 1.05 mg/dL 0.57-1.25 = 2160-0) Glucose (test code = 79 mg/dL 70-105 2345-7) Calcium (test code = 8.4 mg/dL 8.4-10.2 15402-0) AST (test code = 49 U/L 5-34 H 1920-8) ALT (test code = 41 U/L 6-55 1742-6) EGFR (test code = 52 mL/min/1.[address] [place] [address]-8) NOT ACCURATE CREATININE CLEARANCE IN PREDICTING GLOMERULAR FILTRATION RATE . ESTIMATED GFR I S NOT APPLICABLE FOR DIALYSIS PATIEN TSKenrick TORRES (test code = TORRES) Filler Sifter Machine ID - HUMBLE Porter Lab Interpretation Abnormal (test code = 15674-9) [facility] [id number] 06:49:00 Test Item Value Reference Range Interpretation [...] H (test code = 353) ALT (SGPT) ([facility]) 41 U/L 6-55 (test code = 347) EGFR ([facility]) (test 52 mL/min/1.[address] GFR IS code = 1092) sq m NOT ACCURATE CREATININE CLEARANCE IN PREDICTING GLOMERULAR FILTRATION RATE . ESTIMATED GFR I S NOT APPLICABLE FOR DIALYSIS PATIEN TS. Filler Sifter Machine ID - HUMBLE MPOCT-GLUCOSE [id number] 16:54:00 Test Item Value Reference Range Interpretation Comments POC-GLUCOSE METER 171 mg/dL 70-110 H : TESTED A T [facility] 6720 (LIA) (test code = FORTUNATO HART ID, 1538) [address]: Filler Sifter Machine/Techni aldo ID = [id number] for ALBINO GONZALEZ Hemoglobin [id number] 15:22:00 Test Item Value Reference Range Interpretation Comments Hemoglobin A1C (test code = 4548-4) 6.2 % 4.3-6.1 H Lab Interpretation (test code = Abnormal 51338-5) [facility] [id number] 15:22:00 Test Item Value Reference Range Interpretation Comments Hemoglobin A1C (test code = 4548-4) 6.2 % 4.3-6.1 H Lab Interpretation (test code = Abnormal 28148-6) [facility] [id number] 15:22:00 Test Item Value Reference Range Interpretation Comments Hemoglobin A1C (test code = 4548-4) 6.2 % 4.3-6.1 H Lab Interpretation (test code = Abnormal 55780-4) [facility] [id number] 15:22:00 Test Item Value Reference Range Interpretation Comments Hemoglobin A1C (test code = 4548-4) 6.2 % 4.3-6.1 H Lab Interpretation (test code = Abnormal 56636-8) [facility]MO[facility]IN [id number] 15:22:00 Test Item Value Reference Range Interpretation Comments HEMOGLOBIN A1C (LIA) (test code = 6.2 % 4.3-6.1 H 368) POCT-GLUCOSE [id number] 12:56:00 Test Item Value Reference Range Interpretation Comments POC-GLUCOSE METER 93 mg/dL 70-110 : Notified RN/MD: TESTED (BEAKER) (test code = AT [facility] 67[address] [facility] 1538) [place], [address]: Filler Sifter Machine/Techni aldo ID = [id number] for Arely Correa [place], [id number] 12:02:00Reason for exam:->[facility] : 1950 Sex: FFluoroscopic unit utilized for a procedure performed in the OR. No interpretation was requested. Refer to theoperative report for findings. Refer to PACS for patient radiation dose information.[place] Endoscopic Retrograde Dv[id number] 12:02:00Interface, External Ris In - 03/10/2021 12:18 PM CDTFluoroscopic unit utilized for a procedure performed in the OR. No interpretation was requested. Refer to the operative report for findings. Refer toPACS for patient radiation dose information.[facility] Endoscopic Retrograde [id number] 12:02:00Interface, External Ris In - 03/10/2021 12:18 PM CDTFluoroscopic unit utilized for a procedure performed in the OR. No interpretation was requested. Refer to the operative report for findings. Refer toPACS for patient radiation dose information.[facility] Endoscopic Retrograde [id number] 12:02:00Interface, External Ris In - 03/10/2021 12:18 PM CDTFluoroscopic unit utilized for a procedure performed in the OR. No interpretation was requested. Refer to the operative report for findings. Refer toPACS for patient radiation dose information.[facility] Endoscopic Retrograde Rvwakuvooujkpoxqbxpbwvtq0606-23-28 12:02:00Interface, External Ris In - 03/10/2021 12:18 PM CDTFluoroscopic unit utilized for a procedure performed in the OR. No interpretation was requested. Refer to the operative report for findings. Refer [facility] for patient radiation dose information.[facility] HospitalPO[facility] [id number] 09:27:00 Test Item Value Reference Range Interpretation Comments POC-GLUCOSE METER 74 mg/dL 70-110 : TESTED A T [facility] 6720 (BEAKER) (test code = FORTUNATO HART ID, 1538) [address]: Filler Sifter Machine/Techni aldo ID = [id number] for ALBINO ROSS COMPREHENSIVE METABOLIC [id number] 05:49:00 Test Item Value Reference Range Interpretation [...] S NOT APPLICABLE FOR DIALYSIS PATIEN TS. Filler Sifter Machine ID - HUMBLE [facility] (Hemogram only)2021-03-10 05:10:00 Test Item Value Reference Range Interpretation Comments WBC (test code = 6690-2) 9.1 See_Comment [A utomated message] The system [employer] generated this result transmitted ref erence range: 3.5 - 10 .5 K/L. The refe rence range was not u sed to interpret this result as normal/abnor mal. RBC (test code = 789-8) 3.57 See_Comment L [Au tomated message] The system [employer] generated this result transmitted ref erence range: 3.93 - 5 .22 M/L. The refe rence range was not u sed to interpret this result as normal/abnor mal. MCHC (test code = 786-4) 30.9 See_Comment L [A utomated message] The system [employer] generated this result transmitted ref erence range: [...] See_Comment [Aut omated message] 777-3) The system [employer] generated this result transmitted ref erence range: 150 - 45 0 K/CU MM. The referen ce range was not u sed to interpret this result as normal/abnor mal. MPV (test code = 9.3 fL 9.4-12.3 L 99301-1) nRBC (test code = 413) 0 See_Comment [Aut omated message] The system [employer] generated this result transmitted ref erence range: 0 - 0 /1 00 WBC. The refere nce range was not u sed to interpret this result as normal/abnor mal. Lab Interpretation (test Abnormal code = 94825-9) [facility]2021-03-10 05:10:00 Test Item Value Reference Range Interpretation Comments WBC (test code = 6690-2) 9.1 See_Comment [A utomated message] The system [employer] generated this result transmitted ref erence range: 3.5 - 10 .5 K/L. The refe rence range was not u sed to interpret this result as normal/abnor mal. RBC (test code = 789-8) 3.57 See_Comment L [Au tomated message] The system [employer] generated this result transmitted ref erence range: 3.93 - 5 .22 M/L. The refe rence range was not u sed to interpret this result as normal/abnor mal. MCHC (test code = 786-4) 30.9 See_Comment L [A utomated message] The system [employer] generated this result transmitted ref erence range: [...] See_Comment [Aut omated message] 777-3) The system [employer] generated this result transmitted ref erence range: 150 - 45 0 K/CU MM. The referen ce range was not u sed to interpret this result as normal/abnor mal. MPV (test code = 9.3 fL 9.4-12.3 L 74335-3) nRBC (test code = 413) 0 See_Comment [Aut omated message] The system [employer] generated this result transmitted ref erence range: 0 - 0 /1 00 WBC. The refere nce range was not u sed to interpret this result as normal/abnor mal. Lab Interpretation (test Abnormal code = 40727-4) [facility] (Hemogram only)2021-03-10 05:10:00 Test Item Value Reference Range Interpretation Comments WBC (test code = 6690-2) 9.1 See_Comment [A utomated message] The system [employer] generated this result transmitted ref erence range: 3.5 - 10 .5 K/L. The refe rence range was not u sed to interpret this result as normal/abnor mal. RBC (test code = 789-8) 3.57 See_Comment L [Au tomated message] The system [employer] generated this result transmitted ref erence range: 3.93 - 5 .22 M/L. The refe rence range was not u sed to interpret this result as normal/abnor mal. MCHC (test code = 786-4) 30.9 See_Comment L [A utomated message] The system [employer] generated this result transmitted ref erence range: [...] See_Comment [Aut omated message] 777-3) The system [employer] generated this result transmitted ref erence range: 150 - 45 0 K/CU MM. The referen ce range was not u sed to interpret this result as normal/abnor mal. MPV (test code = 9.3 fL 9.4-12.3 L 85358-3) nRBC (test code = 413) 0 See_Comment [Aut omated message] The system [employer] generated this result transmitted ref erence range: 0 - 0 /1 00 WBC. The refere nce range was not u sed to interpret this result as normal/abnor mal. Lab Interpretation (test Abnormal code = 49626-2) [facility] (Hemogram only)2021-03-10 05:10:00 Test Item Value Reference Range Interpretation Comments WBC (test code = 6690-2) 9.1 See_Comment [A utomated message] The system [employer] generated this result transmitted ref erence range: 3.5 - 10 .5 K/L. The refe rence range was not u sed to interpret this result as normal/abnor mal. RBC (test code = 789-8) 3.57 See_Comment L [Au tomated message] The system [employer] generated this result transmitted ref erence range: 3.93 - 5 .22 M/L. The refe rence range was not u sed to interpret this result as normal/abnor mal. MCHC (test code = 786-4) 30.9 See_Comment L [A utomated message] The system [employer] generated this result transmitted ref erence range: [...] See_Comment [Aut omated message] 777-3) The system [employer] generated this result transmitted ref erence range: 150 - 45 0 K/CU MM. The referen ce range was not u sed to interpret this result as normal/abnor mal. MPV (test code = 9.3 fL 9.4-12.3 L 76178-8) nRBC (test code = 413) 0 See_Comment [Aut omated message] The system [employer] generated this result transmitted ref erence range: 0 - 0 /1 00 WBC. The refere nce range was not u sed to interpret this result as normal/abnor mal. Lab Interpretation (test Abnormal code = 99105-7) [facility] (HEMOGRAM ONLY)2021-03-10 05:10:00 Test Item [...] 0-0 (BEAKER) (test code = 413) POCT-GLUCOSE [id number] 00:05:00 Test Item Value Reference Range Interpretation Comments POC-GLUCOSE METER 83 mg/dL 70-110 : TESTED A T [facility] 6720 (BEAKER) (test code = [place]ATO HART ID, 1538) [address]: Filler Sifter Machine/Techni aldo ID = [id number] for MAGAN PAWELBETHTY SARS-COV2/RT-PCR ([facility])2021-03-09 23:58:00 Test Item Value Reference Range Interpretation Comments SARS-COV2/RT-PCR (test Negative Not Detected, Negative, code = 4432469) See external report for linked test SARS-COV-2 PERFORMING LAB [facility] SHIV (test code = 1882777) Negative result for this test determines that [...] of the Act.Fact Sheet for Healthcare Prov iders:https://www.[employer]/sites/default/files/product/documents/Fact_Sheet_HC _Mfcwskmdo_Sltl_BOJY-KtT-8.pdfFact Sheet for Healthcare Patients:https://www.[employer]/sites/default/files/product/docume nts/Omnz_Eblfd_Rnmmcesb_Holt_EZTF-AvK-3.pdfPerforming Laboratory:[facility] [place], [place] [id number] METER 2021-03-09 17:34:00 Test Item Value Reference Range Interpretation Comments POC-GLUCOSE METER 97 mg/dL 70-110 : TESTED Galina Brown [facility] 6720 (LIA) (test code = FOR[place]ATO Kaba [facility], 1538) [address]: Filler Sifter Machine/Techni aldo ID = [id number] for ALBINO ROSS MR, ABDOMEN, [id number] 17:11:00Unlisted Reason for Exam - Click Yes and Enter Reason Below->NoPatient with hyperdense material seen in distal CBD [place] [facility] : 1950 Sex: [...] [place] Verified Date/Time: 03/09/2021 17:11:18 Reading Location: [address] Transitional Reading Room MR abdomen without IV contrast [id number] 17:11:00 Interface, External Ris In - 03/09/2021 [...] MDReport Verified Date/Time: 03/09/2021 17:11:18 Reading Location: [facility] C0T [facility] [id number] 17:11:00Interface, External Ris In - 03/09/2021 5:13 [...] MDReport Verified Date/Time: 03/09/2021 17:11:18 Reading Location: [address] [facility] [id number] 17:11:00Interface, External Ris In - 03/09/2021 5:13 [...] 12/29/2005 but appears chronic Signed: Ashely Peralta Verified Date/Time: 03/09/2021 17:11:18 Reading Location: [address] [facility]itional [facility] [id number] 17:11:00Interface, External Ris In - 03/09/2021 5:13 [...] [place] Verified Date/Time: 03/09/2021 17:11:18 Reading Location: [facility] C013T Transitional Reading Room [facility] [id number] 12:41:00 Test Item Value Reference Range Interpretation Comments POC-GLUCOSE METER 92 mg/dL 70-110 : TESTED Galina Brown [facility] 6720 (BEAKER) (test code = FORTUNATO HART ID, 1538) 11[address]: Filler Sifter Machine/Techni aldo ID = [id number] for PARESH NO, ALBINO Urinalysis w/Microscopic + Reflex to [id number] 11:21:00 Test Item Value Reference Range Interpretation Comments Color, UA (test code Light Yellow = 5778-6) Clarity, UA (test Clear code = 5767-9) Specific [place], UA 1.033 1.001-1.035 (test code = 5811-5) pH, UA (test code = 5.5 5.0-8.0 5803-2) Protein, UA (test Negative Negative code = 28001-9) Glucose, UA (test Negative Negative code = 365) Ketones, UA (test Negative Negative code = 2514-8) Bilirubin, UA (test Negative Negative code = 95290-5) Blood, UA (test code Trace Negative A = 28090-5) Nitrite, UA (test Negative Negative code = 5802-4) Leukocytes, UA (test Negative Negative code = 5799-2) Urobilinogen, UA 0.2 mg/dL 0.2-1 (test code = 63779-2) RBC, UA (test code = 2 See_Comment [Autom ated 39170-3) message] The system which generated this result [...] Bacteria, UA (test None Seen code = 68482-3) Mucus (test code = Rare 8247-9) Squam Epithel, UA 1 See_Comment [Automate d (test code = 38558-8) messag e] The system which generated this result transmit lane reference range : /HPF. The reference range was not used to interpret this result as normal/abnormal . Crystals, Urine (test None Seen code = 74434-4) Specimen Source (test code = 2795) TORRES (test code = TORRES) Filler Sifter Machine ID - [auto]Filler Sifter Machine ID - tech Lab Interpretation Abnormal (test code = 90402-3) [facility]/Microscopic + Reflex to Culture 2021-03-09 11:21:00 Test Item Value Reference Range Interpretation Comments Color, UA (test code Light Yellow = 5778-6) Clarity, UA (test Clear code = 5767-9) Specific [place], UA 1.033 1.001-1.035 (test code = 5811-5) pH, UA (test code = 5.5 5.0-8.0 5803-2) Protein, UA (test Negative Negative code = 71727-1) Glucose, UA (test Negative Negative code = 365) Ketones, UA (test Negative Negative code = 2514-8) Bilirubin, UA (test Negative Negative code = 07876-5) Blood, UA (test code Trace Negative A = 20262-5) Nitrite, UA (test Negative Negative code = 5802-4) Leukocytes, UA (test Negative Negative code = 5799-2) Urobilinogen, UA 0.2 mg/dL 0.2-1 (test code = 30529-0) RBC, UA (test code = 2 See_Comment [Autom ated 60815-7) message] The system which generated this result [...] Bacteria, UA (test None Seen code = 01134-3) Mucus (test code = Rare 8247-9) Squam Epithel, UA 1 See_Comment [Automate d (test code = 21352-6) messag e] The system which generated this result transmit lane reference range : /HPF. The reference range was not used to interpret this result as normal/abnormal . Crystals, Urine (test None Seen code = 85853-1) Specimen Source (test code = 2795) TORRES (test code = TORRES) Filler Sifter Machine ID - [auto]Filler Sifter Machine ID - tech Lab Interpretation Abnormal (test code = 66100-3) [facility] w/Microscopic + Reflex to Culture 2021-03-09 11:21:00 Test Item Value Reference Range Interpretation Comments Color, UA (test code Light Yellow = 5778-6) Clarity, UA (test Clear code = 5767-9) Specific [place], UA 1.033 1.001-1.035 (test code = 5811-5) pH, UA (test code = 5.5 5.0-8.0 5803-2) Protein, UA (test Negative Negative code = 15247-3) Glucose, UA (test Negative Negative code = 365) Ketones, UA (test Negative Negative code = 2514-8) Bilirubin, UA (test Negative Negative code = 68509-7) Blood, UA (test code Trace Negative A = 04009-1) Nitrite, UA (test Negative Negative code = 5802-4) Leukocytes, UA (test Negative Negative code = 5799-2) Urobilinogen, UA 0.2 mg/dL 0.2-1 (test code = 95553-2) RBC, UA (test code = 2 See_Comment [Autom ated 80293-3) message] The system which generated this result [...] Bacteria, UA (test None Seen code = 68610-3) Mucus (test code = Rare 8247-9) Squam Epithel, UA 1 See_Comment [Automate d (test code = 98798-8) messag e] The system which generated this result transmit lane reference range : /HPF. The reference range was not used to interpret this result as normal/abnormal . Crystals, Urine (test None Seen code = 35302-1) Specimen Source (test code = 2795) TORRES (test code = TORRES) Filler Sifter Machine ID - [auto]Filler Sifter Machine ID - tech Lab Interpretation Abnormal (test code = 51727-2) [facility] Reflex to Culture 2021-03-09 11:21:00 Test Item Value Reference Range Interpretation Comments Color, UA (test code Light Yellow = 5778-6) Clarity, UA (test Clear code = 5767-9) Specific [place], UA 1.033 1.001-1.035 (test code = 5811-5) pH, UA (test code = 5.5 5.0-8.0 5803-2) Protein, UA (test Negative Negative code = 14461-8) Glucose, UA (test Negative Negative code = 365) Ketones, UA (test Negative Negative code = 2514-8) Bilirubin, UA (test Negative Negative code = 01839-4) Blood, UA (test code Trace Negative A = 88605-5) Nitrite, UA (test Negative Negative code = 5802-4) Leukocytes, UA (test Negative Negative code = 5799-2) Urobilinogen, UA 0.2 mg/dL 0.2-1 (test code = 69717-1) RBC, UA (test code = 2 See_Comment [Autom ated 99736-1) message] The system which generated this result [...] Bacteria, UA (test None Seen code = 96809-6) Mucus (test code = Rare 8247-9) Squam Epithel, UA 1 See_Comment [Automate d (test code = 12459-1) messag e] The system which generated this result transmit lane reference range : /HPF. The reference range was not used to interpret this result as normal/abnormal . Crystals, Urine (test None Seen code = 51979-4) Specimen Source (test code = 2795) TORRES (test code = TORRES) Filler Sifter Machine ID - [auto]Filler Sifter Machine ID - tech Lab Interpretation Abnormal (test code = 92369-9) [facility]LEX URINE [id number] 11:21:00 Test Item Value Reference Range Interpretation [...] code = 1521) SOURCE(BEAKER) (test code = 2585) Filler Sifter Machine ID - [auto]Filler Sifter Machine ID - techHEMOGLOBIN [id number] 10:22:00 Test Item Value Reference Range Interpretation Comments HEMOGLOBIN A1C (BEAKER) (test code = 6.1 % 4.3-6.1 368) [id number] 06:48:00 Test Item Value Reference Range Interpretation Comments Magnesium (test code = 2.1 mg/dL 1.6-2.6 74011-1) TORRES (test code = TORRES) Filler Sifter Machine ID - ELVIN W Lab Interpretation (test Normal code = 77074-5) [facility]2021-[facility]28 06:48:00 Test Item Value Reference Range Interpretation Comments Magnesium (test code = 2.1 mg/dL 1.6-2.6 43925-8) TORRES (test code = TORRES) Filler Sifter Machine ID - ELVIN W Lab Interpretation (test Normal code = 15405-1) [facility]21-[facility]-28 06:48:00 Test Item Value Reference Range Interpretation Comments Magnesium (test code = 2.1 mg/dL 1.6-2.6 74448-6) TORRES (test code = TORRES) Filler Sifter Machine ID Carlo OCONNOR W Lab Interpretation (test Normal code = 23317-1) [facility]2021-[facility]-28 06:48:00 Test Item Value Reference Range Interpretation Comments Magnesium (test code = 2.1 mg/dL 1.6-2.6 96952-0) TORRES (test code = TORRES) Filler Sifter Machine ID Carlo OCONNOR W Lab Interpretation (test Normal code = 65625-1) [facility]OLIC [id number] 06:48:00 Test Item Value Reference Range Interpretation [...] S NOT APPLICABLE FOR DIALYSIS PATIEN TS. Filler Sifter Machine ID - ELVIN [id number] 06:48:00 Test Item Value Reference Range Interpretation Comments MAGNESIUM (BEAKER) (test code = 2.1 mg/dL 1.6-2.6 627) Filler Sifter Machine ID Carlo OCONNOR WHEPATIC FUNCTION [id number] 06:48:00 Test Item Value Reference Range Interpretation [...] (test code = 30 U/L 6-55 347) Filler Sifter Machine AMANDA OCONNOR WPROTHROMBIN TIME/[id number] 06:32:00 Test Item Value Reference Range Interpretation Comments PROTIME (BEAKER) 12.9 seconds 11.9-14.2 (test code = 759) INR (BEAKER) (test 0.99 See_Comment [Automat ed message] code = 370) The system [employer] generated this result transmitted ref erence range: <=5.90. The reference range was not used to int erpret this result as normal/abnormal . RECOMMENDED COUMADIN/WARFARIN INR THERAPY RANGESSTANDARD DOSE: 2.0 - 3.0 Includes: PROPHYLAXIS for venous thrombosis, systemic embolization; TREATMENT for venous thrombosis and/or pulmonary embolus.HIGH RISK: Target INR is 2.5-3.5 for patients with mechanical heart valves.CBC W/PLT COUNT & AUTO [id number] 06:29:00 Test Item Value Reference Range Interpretation [...] code = 2801) MRI Brain wo contrast [id number] 16:25:00Patient Name: RIYA REEVESB: 1950. Age: 67 years. Gender: Female.MR: [id number]. Location: [facility]. Provider: Hollie Acuña MD.EXAM: Brain wo contrast [...] abnormality. Mild chronic microangiopathic ischemic gliosis. SL: [id number]--Rfti by: Finesse Dias MDDictated Date/time: 02/08/18 17:31Electronically Signed by: Finesse Dias MD 02/08/1817:40FINAL REPORTUT [facility] Brain w/wo contrast [id number] 2018-02-08 13:39:00 Test Item Value Reference Range Interpretation Comments Brain w/wo contrast MRI Cancel Reason: Exam (test code = Brain w/wo Replaced contrast MRI) [facility]
[2023-04-01] MEDS ORDERED: NA CHLORIDE 0.9% 500 ML ONE (14:43)
--- NOTE | 2023-04-01 14:48 | RAD REPORT ---
EXAM DESCRIPTION: RAD - Chest Single View - 04/01/2023 2:40 pm CLINICAL HISTORY: fall, hypotension Chest pain. COMPARISON: Chest Single View dated 03/28/2023; Chest Single View dated 01/03/2023; Chest Single View dated 12/14/2022; Chest Single View dated 10/30/2022 FINDINGS: Portable technique limits examination quality. The lungs are grossly clear. The heart is mildly enlarged in size. No displaced fractures. IMPRESSION: No acute intrathoracic process suspected.
[2023-04-01 15:11] LABS: Absolute Lymphocytes (CBC) 2.3 K/uL (0.7-4.9); Hematocrit 35.4 % (36.0-45.0); Lymphocytes % 17.5 % (15.3-44.8); MCV 88.8 fL (80-100); MPV 7.5 fL (7.6-11.3); RBC Red Blood Cell Count 3.98 M/uL (3.86-4.86)
[2023-04-01 15:13] LABS: Protime INR 1.07
[2023-04-01 15:32] LABS: Albumin 3.6 g/dL (3.4-5.0); Bilirubin Total 0.3 mg/dL (0.2-1.0); Potassium 4.3 mEq/L (3.5-5.1); Protein, Total 8.5 g/dL (6.4-8.2); Troponin High Sensitivity 4.2 pg/mL (<58.9)
--- NOTE | 2023-04-01 16:02 | RAD REPORT ---
EXAM DESCRIPTION: CT - Head C Spine Cap Wo Con - 04/01/2023 3:43 pm CLINICAL HISTORY: Trauma, head and neck injury. Chest, abdomen and pelvis pain. syncope, fall, trauma, distended abdomen COMPARISON: No comparisons TECHNIQUE: CT head without contrast. CT cervical spine without contrast with coronal and sagittal reformatted images. CT chest, abdomen and pelvis without contrast with coronal and sagittal reformatted images of the spi ne. All CT scans are performed using dose optimization technique as appropriate and may include automated exposure control or mA/KV adjustment according to patient size. FINDINGS: CT HEAD WITHOUT CONTRAST: No intracranial hemorrhage, hydrocephalus or extra-axial fluid collection. No areas of brain edema o r midline shift. The paranasal sinuses and mastoids are clear. The calvarium is intact. CT CERVICAL SPINE WITHOUT CONTRAST: No fracture or subluxation. The prevertebral soft tissues are normal in thickness. CT CHEST, ABDOMEN, PELVIS WITHOUT CONTRAST: NOTE: Lack of contrast is a significant limitation in the assessment of trauma related findings. Spec ifically, solid organ, vascular and bowel evaluation is significantly limited. Mild interstitial lung opacities may represent mild interstitial pulmonary edema.Mildly prominent car diac size.No pneumothorax or pericardial/pleural fluid. No evidence of intra-abdominal visceral injury, free fluid or free air is seen within the above detai led limitations. Cholecystectomy. Right total hip arthroplasty. No acute fractures. Vertebroplasty noted within a compression fracture of L1, chronic. IMPRESSION: Negative for acute traumatic findings within the above detailed limitations.
--- NOTE | 2023-04-01 16:39 | ER ---
[facility]'s [facility] Name: Alberto Botello Age: 72 yrs Sex: Female : 1950 Arrival Date: 04/01/2023 Time: 14:17 Bed 13 Private MD: Diagnosis: Syncope;Acute kidney failure, unspecified Presentation: 04/01 14:16 Chief complaint: EMS states: Syncopal episode today. Weakness since last time seen here nj1 and dx with sinusitis. 14:16 Coronavirus screen: Vaccine status: Patient reports receiving the 2nd dose of the covid nj1 vaccine. Ebola Screen: Patient denies travel to an Ebola-affected area in the 21 days before illness onset. Initial Sepsis Screen: Does the patient meet any 2 criteria? No. Patient's initial sepsis screen is negative. Does the patient have a suspected source of infection?. Risk Assessment: Do you want to hurt yourself or someone else? Patient reports no desire to harm self or others. Onset of symptoms was March 2023. 14:16 Acuity: ART 3 nj1 14:48 Method Of Arrival: EMS: [place] [id number] Historical: - Allergies: 14:16 No Known Allergies; nj1 - Home Meds: 17:45 citalopram 20 mg tab 1 tab once daily [Active]; risperadone 0.5 1 tab twice a day nj1 [Active]; famotidine 20 mg Oral tablet 1 tab daily [Active]; memantine 10 mg oral tablet 1 tab every morning [Active]; gabapentin 600 mg oral tablet 1 tab every 12 hours [Active]; tizanidine 4 mg oral tablet 1 tabs daily [Active]; alprazolam 2 mg Oral tab 1 tab nightly [Active]; [place] 7.5-325 mg Oral tab 1 tab TID [Active]; tamsulosin 0.4 mg oral capsule 1 cap daily [Active]; Vitamin D Oral 1000 unit daily [Active]; PreserVision AREDS oral [Active]; furosemide 20 mg Oral tablet 1 tab daily [Active]; levocetirizine 5 mg oral tablet 1 tab daily [Active]; spironolactone 25 mg Oral tablet [Active]; levofloxacin 500 mg Oral tablet 1 tab daily [Active]; alendronate 70 mg oral tablet 1 tab every week [Active]; - PMHx: 14:16 Anxiety; Chronic pain; Diabetes - NIDDM; Hepatitis; Hypertension; Osteoporosis; nj1 Pancreatitis; - PSHx: 14:16 Cholecystectomy; hip; Total abdominal hysterectomy; nj1 - Immunization history:: Client reports receiving the 2nd dose of the Covid vaccine. - Social history:: Smoking status: Patient denies any tobacco usage or history of. - Family history:: not pertinent. - Hospitalizations: : No recent hospitalization is reported. Screenin:15 [facility] ED Fall Risk Assessment (Adult) History of falling in the last 3 months, nj1 including since admission Yes- physiologic fall (2 pts) Confusion or Disorientation No (0 pts) Intoxicated or Sedated No (0 pts) Impaired Gait No (0 pts) Mobility Assist Device Used No (0 pt) Altered Elimination No (0 pt) Score/Fall Risk Level 0 - 2 = Low Risk Oriented to surroundings, Maintained a safe environment, Hourly rounding (assess needs \T\ fall precautionary measures) done. Abuse screen: Denies threats or abuse. Denies injuries from another. Nutritional screening: No deficits noted. Tuberculosis screening: No symptoms or risk factors identified. Assessment: 14:30 General: Appears in no apparent distress. comfortable, Behavior is calm, cooperative, nj1 appropriate for age. Neuro: Level of Consciousness is awake, alert, obeys commands, Oriented to person, place, time, situation, Daughter able to translate, patient does not speak armenian.. 14:30 Pain: Complains of pain in Head. Cardiovascular: Patient's skin is warm and dry. nj1 Respiratory: Airway is patent Respiratory effort is even, unlabored. 15:30 Reassessment: Patient appears in no apparent distress at this time. No changes from nj1 previously documented assessment. Patient and/or family updated on plan of care and expected duration. Pain level reassessed. Patient is alert, oriented x 3, equal unlabored respirations, skin warm/dry/pink. 16:30 Reassessment: Patient appears in no apparent distress at this time. No changes from nj1 previously documented assessment. Patient and/or family updated on plan of care and expected duration. Pain level reassessed. Patient is alert, oriented x 3, equal unlabored respirations, skin warm/dry/pink. Assisted x2 via wc to restroom. 17:30 Reassessment: Patient appears in no apparent distress at this time. Patient and/or nj1 family updated on plan of care and expected duration. Pain level reassessed. Patient is alert, oriented x 3, equal unlabored respirations, skin warm/dry/pink. 18:30 Reassessment: Patient appears in no apparent distress at this time. Patient and/or nj1 family updated on plan of care and expected duration. Pain level reassessed. Patient is alert, oriented x 3, equal unlabored respirations, skin warm/dry/pink. Patient states feeling better. Vital Signs: 14:16 BP 123 / 65; Pulse 81; Resp 22; Temp 99(O); Pulse Ox 97% on R/A; Weight 68.04 kg; sc1 Height 4 ft. 11 in. ; 15:16 BP 118 / 70; Pulse 78; Resp 18; Pulse Ox 96% on R/A; sc1 16:10 BP 112 / 61; Pulse 75; Resp 19; Pulse Ox 94% on R/A; [facility] 17:15 BP 119 / 68; Pulse 76; Resp 18; Pulse Ox 98% on R/A; sc1 18:15 BP 107 / 65; Pulse 72; Resp 14; Pulse Ox 98% on R/A; sc1 19:23 BP 117 / 51; Pulse 73; Resp 17; Pulse Ox 97% on R/A; [facility] 20:11 BP 120 / 66; Pulse 76; Resp 18; Pulse Ox 98% on R/A; [facility] 14:16 Body Mass Index 30.30 (68.04 kg, 149.86 cm) [facility] ED Course: 14:19 Patient arrived in ED. eb 14:19 Xavi Ko MD is Attending Physician. rn 14:29 Amanda Cross, YOSVANY is Primary Nurse. [facility] 14:30 Provided Education on: fall precautions. [facility] 14:30 Patient has correct armband on for positive identification. Bed in low position. Call [facility] light in reach. Adult w/ patient. 14:41 Inserted saline lock: 22 gauge in left forearm, using aseptic technique. Blood mb4 collected. 14:42 Chest Single View XRAY In Process Unspecified. EDMS 14:45 Initial lab(s) drawn, by [facility], sent to lab. First set of blood cultures drawn by va. mb4 15:01 Triage completed. nj1 15:04 Arm band placed on. nj1 15:44 Head C Spine Cap Wo Con In Process Unspecified. EDMS 16:39 Davis Ko MD is Hospitalizing Provider. rn 20:16 No provider procedures requiring assistance completed. nj1 20:17 Patient admitted, IV remains in place. nj1 Administered Medications: 14:45 Drug: NS 0.9% IV 500 ml Route: IV; Rate: bolus; Site: left forearm; nj1 15:45 Follow up: Response: No adverse reaction; IV Status: Completed infusion; IV Intake: nj1 500ml Medication: 20:17 VIS not applicable for this client. nj1 Intake: 15:45 IV: 500ml; Total: 500ml. nj1 Output: 16:30 Urine: 400ml (Voided); Total: 400ml. nj1 Outcome: 16:39 Decision to Hospitalize by Provider. rn 20:16 Admitted to Med/surg nj1 20:16 Admitted to Med/surg accompanied by tech, via stretcher, room 210, Report called to Nurse Gerald 20:16 Condition: stable 20:16 Instructed on the need for admit. 20:47 Patient left the ED. nj1 Signatures: Dispatcher [employer] EDOH Xavi Ko MD MD rn Botello, Elizabeth eb Baxter, Mackenzie mb4 Amanda Cross, RN RN nj1 Corrections: (The following items were deleted from the chart) 18:05 17:45 Home Meds: lisinopril 10 mg Oral tab 1 tab once daily; Only take when need it; nj1nj1
--- NOTE | 2023-04-01 16:40 | EDPHYS ---
Physician Documentation [facility] Name: Alberto Botello Age: 72 yrs Sex: Female : 1950 Arrival Date: 04/01/2023 Time: 14:17 Bed 13 Private MD: ED Physician Xavi Ko HPI: 04/01 14:22 This 72 yrs old [place] Female presents to ER via Unassigned with complaints of rn syncope. 14:22 The patient has experienced syncope. Onset: The symptoms/episode began/occurred just rn prior to arrival. Duration: This was a single episode. Associated signs and symptoms: Pertinent positives: confusion, lightheadedness. Current symptoms: decreased level of consciousness. It is unknown whether or not the patient has had similar symptoms in the past. The patient has been recently seen at the [facility] Emergency Department. Pt seen here 4 days ago for possible infection/ congestion, prescribed levaquin and discharged. REturns today for syncopal episode, single episode, hit wall with right arm/chest. Pt somnolent and EMS reported low blood pressure that has improved since transport. Waiting on daughter's arrival for more story.. Historical: - Allergies: 14:16 No Known Allergies; nj1 - Home Meds: 17:45 citalopram 20 mg tab 1 tab once daily [Active]; risperadone 0.5 1 tab twice a day nj1 [Active]; famotidine 20 mg Oral tablet 1 tab daily [Active]; memantine 10 mg oral tablet 1 tab every morning [Active]; gabapentin 600 mg oral tablet 1 tab every 12 hours [Active]; tizanidine 4 mg oral tablet 1 tabs daily [Active]; alprazolam 2 mg Oral tab 1 tab nightly [Active]; [place] 7.5-325 mg Oral tab 1 tab TID [Active]; tamsulosin 0.4 mg oral capsule 1 cap daily [Active]; Vitamin D Oral 1000 unit daily [Active]; PreserVision AREDS oral [Active]; furosemide 20 mg Oral tablet 1 tab daily [Active]; levocetirizine 5 mg oral tablet 1 tab daily [Active]; spironolactone 25 mg Oral tablet [Active]; levofloxacin 500 mg Oral tablet 1 tab daily [Active]; alendronate 70 mg oral tablet 1 tab every week [Active]; - PMHx: 14:16 Anxiety; Chronic pain; Diabetes - NIDDM; Hepatitis; Hypertension; Osteoporosis; nj1 Pancreatitis; - PSHx: 14:16 Cholecystectomy; hip; Total abdominal hysterectomy; nj1 - Immunization history:: Client reports receiving the 2nd dose of the Covid vaccine. - Social history:: Smoking status: Patient denies any tobacco usage or history of. - Family history:: not pertinent. - Hospitalizations: : No recent hospitalization is reported. ROS: 14:22 Unable to obtain ROS due to altered mental status. rn Exam: 14:22 Constitutional: This is a well developed, well nourished patient who is somnolent but rn awakens to voice and tactile stimulation Head/Face: Normocephalic, atraumatic. Eyes: Pupils equal round 3mm, and reactive to light, extra-ocular motions intact. ENT: very dry MM Cardiovascular: Regular rate and rhythm. No pulse deficits. Respiratory: No increased work of breathing, no retractions or nasal flaring. Abdomen/GI: soft, + distension, no discoloration. Skin: Warm, dry MS/ Extremity: Pulses equal, no cyanosis. Neurovascular intact. Full, normal range of motion. Equal circumference. Neuro: Somnolent, moves all 4 extremities with 4/5 strength. 16:53 ECG was reviewed by the Attending Physician. rn Vital Signs: 14:16 BP 123 / 65; Pulse 81; Resp 22; Temp 99(O); Pulse Ox 97% on R/A; Weight 68.04 kg; nj1 Height 4 ft. 11 in. ; 15:16 BP 118 / 70; Pulse 78; Resp 18; Pulse Ox 96% on R/A; nj1 16:10 BP 112 / 61; Pulse 75; Resp 19; Pulse Ox 94% on R/A; nj1 17:15 BP 119 / 68; Pulse 76; Resp 18; Pulse Ox 98% on R/A; nj1 18:15 BP 107 / 65; Pulse 72; Resp 14; Pulse Ox 98% on R/A; nj1 19:23 BP 117 / 51; Pulse 73; Resp 17; Pulse Ox 97% on R/A; nj1 20:11 BP 120 / 66; Pulse 76; Resp 18; Pulse Ox 98% on R/A; nj1 14:16 Body Mass Index 30.30 (68.04 kg, 149.86 cm) nj1 MDM: 14:19 Patient medically screened. rn 16:38 Differential Diagnosis: cardiac arrhythmia, idiopathic syncope, vasovagal episode, rn dehydration, UTI, acute kidney injury. Data reviewed: vital signs, nurses notes, lab test result(s), radiologic studies, CT scan, and as a result, I will admit patient. Consideration of Admission/Observation Patient was admitted/placed on observation. Escalation of care including admission/observation considered. Counseling: I had a detailed discussion with the patient and/or guardian regarding: the historical points, exam findings, and any diagnostic results supporting the discharge/admit diagnosis, lab results, radiology results, the need for further work-up and treatment in the hospital. Response to treatment: the patient's symptoms have mildly improved after treatment, and as a result, I will admit patient. 04/01 14:21 Order name: Blood Culture Adult (2) 04/01 14:21 Order name: CBC with Diff; Complete Time: 15:19 04/01 14:21 Order name: CMP; Complete Time: 15:34 04/01 14:21 Order name: Lactate w/ 2H reflex if indic.; Complete Time: 15:34 04/01 14:21 Order name: Protime (+inr); Complete Time: 15:19 04/01 14:21 Order name: Ptt, Activated; Complete Time: 15:19 04/01 14:21 Order name: Urinalysis w/ reflexes; Complete Time: 17:33 04/01 14:21 Order name: BNP; Complete Time: 15:34 04/01 14:21 Order name: Troponin High Sensitivity; Complete Time: 15:34 04/01 14:38 Order name: Glucose, Ancillary Testing; Complete Time: 15:19 [facility] 04/01 17:44 Order name: Urinalysis w/ reflexes EDME 04/01 14:21 Order name: Chest Single View XRAY; Complete Time: 15:19 04/01 15:44 Order name: Head C Spine Cap Wo Con; Complete Time: 16:11 [facility] 04/01 14:21 Order name: EKG; Complete Time: 14:24 04/01 17:43 Order name: 60g Consistent Carbohydrate (ADA 1800/2000) EDME 04/01 17:44 Order name: Physical Therapy Consult EDMS 04/01 17:44 Order name: Renal EDME 04/01 14:21 Order name: Accucheck; Complete Time: 14:47 rn 04/01 14:21 Order name: Cardiac monitoring; Complete Time: 14:47 rn 04/01 14:21 Order name: EKG - Nurse/Tech; Complete Time: 15:18 rn 04/01 14:21 Order name: IV Saline Lock - Large Bore; Complete Time: 14:47 rn 04/01 14:21 Order name: Labs collected and sent; Complete Time: 15:18 rn 04/01 14:21 Order name: O2 Per Protocol; Complete Time: 14:47 rn 04/01 14:21 Order name: O2 Sat Monitoring; Complete Time: 14:47 rn 04/01 14:21 Order name: Vital Signs; Complete Time: 14:47 rn EC:53 Rate is 75 beats/min. Rhythm is regular. QRS [place] is Normal. [place] interval is normal. QRS rn interval is normal. QT interval is normal. No Q waves. T waves are Inverted in leads V2, V3. No ST changes noted. Clinical impression: NSR w/ Non-specific ST/T Changes. Interpreted by me. Reviewed by me. Administered Medications: 14:45 Drug: NS 0.9% IV 500 ml Route: IV; Rate: bolus; Site: left forearm; nj1 15:45 Follow up: Response: No adverse reaction; IV Status: Completed infusion; IV Intake: nj1 500ml Disposition Summary: 04/01/23 16:39 Hospitalization Ordered Hospitalization Status: Inpatient Admission rn Provider: Davis Ko rn Location: Telemetry/MedSurg (Inpatient) rn Condition: Stable rn Problem: new rn Symptoms: have improved rn Bed/Room Type: Standard rn Room Assignment: 210(04/01/23 19:02) cg Diagnosis - Syncope rn - Acute kidney failure, unspecified rn Forms: - Medication Reconciliation Form rn - SBAR form rn Signatures: Dispatcher [employer] [facility] Xavi Ko MD MD rn Garcia, Cindy RN Amanda Peña RN RN nj1 Corrections: (The following items were deleted from the chart) 15:44 14:24 Head C Spine CAP W Con+CT.RAD.BRZ ordered. [facility] 18:05 17:45 Home Meds: lisinopril 10 mg Oral tab 1 tab once daily; Only take when need it; nj1nj1 19:02 16:39 rn cg
[2023-04-01 17:12] LABS: Urine Bacteria None Seen /HPF (<20); Urine Bilirubin NEGATIVE (Negative); Urine Blood Negative (Negative); Urine Clarity Turbid (Clear); Urine Color Light-Yellow (Yellow); Urine Glucose NEGATIVE (Negative); Urine Protein NEGATIVE (Negative); Urine RBC <5 /HPF (None Seen); Urine Urobilinogen Normal (Normal); Urine pH 5.5 (5.0-7.0)
--- NOTE | 2023-04-01 17:22 | P.HP ---
Certification for Inpatient Patient admitted to: Observation With expected LOS: <2 Midnights Patient will require the following post-hospital care: None Practitioner: I am a practitioner with admitting privileges, knowledge of patient current condition, hospital course, and medical plan of care. Services: Services provided to patient in accordance with Admission requirements found in Title 42 Section 412.3 of the Code of Federal Regulations Patient History Date of Service: 04/01/23 Reason for admission: syncope History of Present Illness: 72-year-old [place] female with a past medical history of chronic pain, anxiety, [id number] diabetes, hepatitis, hypertension, osteoporosis, pancreatitis presents to the ER for a syncopal episode. Patient's daughter is primary historian reports patient has a labile blood pressure today systolic was 89, patient has had several syncopal episodes. Reports syncopal x 1 year. Daughter reports recent cardiology evaluation that was unremarkable. Patient may benefit from Holter monitor outpatient. Reports chronic seasonal allergies, nasal drainage, has seen fire prevention specialist. Patient has a history of hyperglycemia on metformin blood sugar today was 235, reports noncomplaince with diabetic diet. She has elevated BUN and creatinine BUN 41 creatinine 2.88 daughter reports difficulty voiding in the last 24 hours. She reports seen Dr. Reynolds for pulmonary evaluation was not able to follow-up with his appointment. She denies chest pain, nausea vomiting diarrhea, edema, fever or chills. Laboratory evaluation WBC 13 with left shift, microcytic anemia hemoglobin 11.1, acute on chronic kidney injury, BUN 41, creatinine 2.88, GFR 17, hyperglycemia blood glucose 235, troponin was normal at 4.1, BNP was normal. Chest x-ray mild cardiomegaly, lungs are clear CT of the spine, head and chest no intracranial process, no fracture mild interstitial lung opacities may represent mild incisional pulmonary edema, mild prominent cardiac size, no pneumothorax no pleural effusion no pleural fluid, IMPRESSION: Negative for acute traumatic findings within the above detailed limitations Allergies No Known Allergies Allergy (Verified 12/26/15 07:13) Home Medications: Morphine *Extended Release* [MS Contin*] 30 mg PO TIDP PRN 06/13/17 lisinopriL [Prinivil*] 10 mg PO ONCE 06/13/17 Linaclotide [Linzess] 145 mcg PO PRN 05/09/18 Alprazolam 2 mg PO BEDTIME 06/14/21 Cholecalciferol (Vitamin D3) [Vitamin D3] 1,000 unit PO DAILY 06/14/21 Citalopram [Celexa*] 20 mg PO DAILY 06/14/21 Hydrocodone Bit/Acetaminophen [Hydrocodon-Acetaminoph 7.5-325] 1 each PO TID 06/14/21 Lubiprostone [Amitiza] 24 mcg PO DAILY 06/14/21 Pantoprazole [Protonix Tab*] 40 mg PO DAILY 06/14/21 risperiDONE [Risperidone] 0.5 mg PO DAILY 06/14/21 ursodioL [Ursodiol] 500 mg PO DAILY 06/14/21 Benztropine Mesylate [Cogentin] 0.5 mg PO BID 06/15/21 Meclizine HCl [Motion Relief] 25 mg PO PRN PRN 06/17/21 Nitrofurantoin Monohyd/M-Cryst [Macrobid 100 mg Capsule] 100 mg PO BID #14 capsule 06/18/21 - Past Medical/Surgical History Diabetic: Yes -: chronic headache -: hepatitis c -: chronic pain -: pelvic & Lumbar spine compression fracture 01/2015 -: neuropathy -: pancreatitis -: Hypertension -: Anxiety -: hysterectomy, cholecystectomy -: bile duct stent -: kyphoplasty -: ERCP Psychosocial/ Personal History: Patient lives at home with her family - Family History Mother Notes: no history Father -: Heart disease, Lung disease, GI disease, Cancer - Social History Alcohol use: No CD- Drugs: No Caffeine use: Yes Review of Systems 10-point ROS is otherwise unremarkable Physical Examination - Physical Exam General: Alert, In no apparent distress, Oriented x3 HEENT: Atraumatic, Normocephalic, PERRLA Neck: Supple, 2+ carotid pulse no bruit Respiratory: Normal air movement, Other (crackles in bases) Cardiovascular: No edema, Normal pulses Capillary refill: <2 Seconds Gastrointestinal: Normal bowel sounds (obese abdomen) Musculoskeletal: No clubbing, No swelling Integumentary: No rashes, No breakdown Neurological: Normal speech, Normal strength at 5/5 x4 extr, Cranial nerves 3-12 intact - Studies Laboratory Data (last 24 hrs) 04/01/23 14:48: PT 11.8, INR 1.07, APTT 36.7 04/01/23 14:48: Sodium 130 L, Potassium 4.3, BUN 41 H, Creatinine 2.88 H, Glucose 223 H, Total Bilirubin 0.3, AST 24, ALT 31, Alkaline Phosphatase 96 04/01/23 14:48: WBC 13.00 H, Hgb 11.1 L, Hct 35.4 L, Plt Count 319 Assessment and Plan - Plan Assessment plan syncope likely due to labile blood pressure versus polysubstance use Fall acute renal failure Chronic pain with polypharmacy cardiomegaly leukocytosis microcytic anemia diabetes uncontrolled Syncope Cardiology consult, troponin was normal at 4.1, BNP was normal. May need Holter monitor outpatient? Orthostatic vital signs, daily weight, IO Fall CT of the spine, head and chest no intracranial process, no fracture mild interstitial lung opacities may represent mild incisional pulmonary edema, mild prominent cardiac size, no pneumothorax no pleural effusion no pleural fluid, IMPRESSION: Negative for acute traumatic findings within the above detailed limitations Fall precaution, PT eval cardiomegaly cardilogy consulted, trend bnp Acute renal failure acute on chronic kidney injury, BUN 41, creatinine 2.88, GFR 17, Consult nephrology, gentle IV fluids, daily weight, renal diet post void residuals Uncontrolled diabetes glucose 235 A1c in the a.m., Accu-Cheks, sliding scale insulin, start long acting insulin Leukocytosis WBC 13 with left shift, Trend WBCs, cultures, Chronic pain with polypharmacy review home meds, Microcytic anemia microcytic anemia hemoglobin 11.1, trend H&H, transfuse hemoglobin less than 7 DVT prophylaxis heparin Full code Renal diet Discharge Plan: Home Plan to discharge in: 24 Hours - Advance Directives Does patient have a Living Will: No Does patient have a Durable POA for Healthcare: No - Code Status/Comfort Care Code Status: Full Code Physician Review: Patient Assessed, Agree with Above Assessment and Plan Critical Care: Yes Time Spent Managing Pts Care (In Minutes): 50
[2023-04-01] MEDS ORDERED: ONDANSETRON 4 MG/2 ML VIAL IV PRN (17:52)
--- NOTE | 2023-04-01 18:56 | P.CNS ---
Date of Consult: 04/01/23 Reason for Consult: ESTUARDO Requesting Physician: Denise Barba Chief Complaint: syncope History of Present Illness: Pt is a 72-year-old [place] female who history is obtained largely through information provided by the daughter and in the medical records as there is a language barrier and she is lethargic. She has a number of reported conditions and has a long list of medications for HTN with reported labile pressures, a hx of some peripheral edema with chronic diuretic use, a hx of chronic unspecified pain, anxiety, osteoporosis and a hx of syncopal episodes or falls. Pt had a witnessed syncopal episode earlier today which happened acutely and without much precursor symptoms although pt has been tired and weak in prior days per reports. LOC was brief per family. W/u here has already been performed for trauma eval and other. Renal function tests came back revealing ESTUARDO. Pt has long complained at times of reduced UOP or difficulty emptying bladder although further information regarding this is difficult to obtain as daughter is reporting symptoms for the mother. Allergies No Known Allergies Allergy (Verified 12/26/15 07:13) Home Medications: Morphine *Extended Release* [MS Contin*] 30 mg PO TIDP PRN 06/13/17 lisinopriL [Prinivil*] 10 mg PO ONCE 06/13/17 Linaclotide [Linzess] 145 mcg PO PRN 05/09/18 Alprazolam 2 mg PO BEDTIME 06/14/21 Cholecalciferol (Vitamin D3) [Vitamin D3] 1,000 unit PO DAILY 06/14/21 Citalopram [Celexa*] 20 mg PO DAILY 06/14/21 Hydrocodone Bit/Acetaminophen [Hydrocodon-Acetaminoph 7.5-325] 1 each PO TID 06/14/21 Lubiprostone [Amitiza] 24 mcg PO DAILY 06/14/21 Pantoprazole [Protonix Tab*] 40 mg PO DAILY 06/14/21 risperiDONE [Risperidone] 0.5 mg PO DAILY 06/14/21 ursodioL [Ursodiol] 500 mg PO DAILY 06/14/21 Benztropine Mesylate [Cogentin] 0.5 mg PO BID 06/15/21 Meclizine HCl [Motion Relief] 25 mg PO PRN PRN 06/17/21 Nitrofurantoin Monohyd/M-Cryst [Macrobid 100 mg Capsule] 100 mg PO BID #14 capsule 06/18/21 - Past Medical/Surgical History Diabetic: Yes -: chronic headache -: hepatitis c -: chronic pain -: pelvic & Lumbar spine compression fracture 01/2015 -: neuropathy -: pancreatitis -: Hypertension -: Anxiety -: hysterectomy, cholecystectomy -: bile duct stent -: kyphoplasty -: ERCP Psychosocial/ Personal History: Patient lives at home with her family - Family History Mother Notes: no history Father Medical History: Heart disease, Lung disease, GI disease, Cancer - Social History Smoking Status: Unknown if ever smoked Alcohol use: No CD- Drugs: No Caffeine use: Yes Review of Systems is unable to be obtained (Limited ROS as pt lethargic and due to language barrier) Physical Examination General: Other (Lethargic, elderly, NAD) HEENT: Atraumatic, Normocephalic Neck: Supple Respiratory: Clear to auscultation bilaterally, Normal air movement Cardiovascular: No edema, Regular rate/rhythm Gastrointestinal: Soft and benign, No tenderness, Other (Mild distention) Musculoskeletal: No contractures, No tenderness, No warmth Integumentary: No rashes Neurological: Other (Lethargic, opens eyes briefly, responds briefly, no tremors or myoclonus) Laboratory Data (last 24 hrs) 04/01/23 14:48: PT 11.8, INR 1.07, APTT 36.7 04/01/23 14:48: Sodium 130 L, Potassium 4.3, BUN 41 H, Creatinine 2.88 H, Glucose 223 H, Total Bilirubin 0.3, AST 24, ALT 31, Alkaline Phosphatase 96 04/01/23 14:48: WBC 13.00 H, Hgb 11.1 L, Hct 35.4 L, Plt Count 319 Conclusions/Impression: A/P) 1. Stage II ESTUARDO on possible underlying CKD NOS, review of prior EMR records show mildly elevated Cr levels at baseline with prior mild fluctuation in the setting of chronic use of anti hypertensives including JUNAID, diuretics and other. 2. ESTUARDO is likely pre-renal and in the setting of low BP and concurrent use of diuretics including recently added Spironolactone/HCTZ +/- Lasix 3. Will place on isotonic IVF hydration and monitor UOP closely. Renal imaging shows no hydro or distended bladder 4. Will check bladder bedside scan, may get dedicated u/s of the bladder for more formal PVR assessment later. Due to pt reports of poor urination, it appears she may have been placed on tamsulosin by PCP but that itself can contribute to orthostatic hypotension and other 5. Syncope possibly orthostatic due to hypotension, over-medication and other. 6. Trend BP, hold BP lowering agents 7. Suspect polypharmacy with multiple FIELD MARKETING DIRECTOR acting and FIELD MARKETING DIRECTOR depressant medications listed, will defer to IM to review and reconcile. Daughter is interested in cutting back on pt's medications and simplifying regimen. Sage Yoon MD, ERNA
[2023-04-01] MEDS ORDERED: NA CHLORIDE 0.9% 1,000 ML IV SCH (19:00)
[2023-04-01] MEDS: INSULIN -REGULAR HUMAN 50 UNIT/0.5 ML ML SQ SCH (21:00)
[2023-04-01] MEDS: NA CHLORIDE 0.9% 1,000 ML IV SCH (21:36)
[2023-04-01 22:51] VITALS: BMI 29.9
[2023-04-02] MEDS: HYDROCODONE/APAP 7.5/325 MG TAB PO PRN ×3 (00:17→22:16)
[2023-04-02] MEDS: HEPARIN 5000 UNIT/ML 1 ML VIAL SQ SCH ×3 (00:17→16:25)
[2023-04-02 05:19] LABS: Absolute Lymphocytes (CBC) 2.7 K/uL (0.7-4.9); Hematocrit 30.6 % (36.0-45.0); Lymphocytes % 25.3 % (15.3-44.8); MCV 88.1 fL (80-100); MPV 7.3 fL (7.6-11.3); RBC Red Blood Cell Count 3.47 M/uL (3.86-4.86)
[2023-04-02 05:45] LABS: Bilirubin Total 0.2 mg/dL (0.2-1.0); Magnesium 2.6 mg/dL (1.6-2.4); Potassium 4.2 mEq/L (3.5-5.1); Protein, Total 7.1 g/dL (6.4-8.2)
[2023-04-02] MEDS: NA CHLORIDE 0.9% 1,000 ML IV SCH ×2 (06:09→16:25)
--- NOTE | 2023-04-02 07:21 | P.PN ---
Date of Service: 04/02/23 Subjective: Feeling a little better today reports difficulty urinating, family reports getting urge to urinate however nothing comes out sometimes ~750ml output overnight Feels like she has been drinking less water recently, ~2 bottle of water a day afebrile ROS: 10 point ROS unable to fully obtain secondary to language barrier Physical Exam: GEN: Alert, NAD HEENT: Normal conjunctiva, sclera anicteric CV: Regular rate and rhythm, no edema Pulm: Nonlabored respirations on room air, +crackles Neuro: Normal speech, normal affect vitals reviewed Problem List: Syncope Fall ESTUARDO Chronic pain Cardiomegaly Leukocytosis Microcytic anemia Syncope Fall CXR(04/01): No acute intrathoracic process suspected CT spine (04/01): Negative for acute traumatic findings; Mild interstitial lung opacities may represent mild interstitial pulmonary edema possibly from over medication vs. dehydration Cardiology consulted monitor on telemetry troponin was negative, BNP normal. Orthostatic vitals were negative Fall precautions PT consult ESTUARDO Nephrology consulted gentle IVF monitor UOP closely improving Cardiomegaly cardilogy consulted trend bnp NIDDM2 Accu-Cheks, SSI, start long acting insulin A1c: 6.7 Leukocytosis improved, monitor WBC Blood culture: pending Chronic pain review home meds, restart as appropriate Microcytic anemia hgb 11.1 -> 10.0 Monitor H&H. Transfuse if hgb < 7 VTE: Heparin sq Code: Full Dispo: Home ~ 2 days
[2023-04-02] MEDS: INSULIN -REGULAR HUMAN 50 UNIT/0.5 ML ML SQ SCH ×4 (07:30→21:57)
[2023-04-02] MEDS: CITALOPRAM 10 MG TABLET PO SCH (08:42)
[2023-04-02] MEDS: TAMSULOSIN 0.4 MG SR CAP PO SCH (08:42)
[2023-04-02] MEDS: FAMOTIDINE 20 MG TAB PO SCH (08:43)
[2023-04-02] MEDS: MEMANTINE HCL 10 MG TABLET PO SCH (08:43)
[2023-04-02] MEDS ORDERED: FAMOTIDINE 20 MG TAB PO SCH (09:00)
[2023-04-03] MEDS: HEPARIN 5000 UNIT/ML 1 ML VIAL SQ SCH ×3 (02:10→16:39)
[2023-04-03] MEDS: NA CHLORIDE 0.9% 1,000 ML IV SCH ×2 (04:14→11:00)
[2023-04-03 06:34] LABS: Absolute Lymphocytes (CBC) 2.9 K/uL (0.7-4.9); Hematocrit 30.6 % (36.0-45.0); Lymphocytes % 34.8 % (15.3-44.8); MCV 88.9 fL (80-100); MPV 7.5 fL (7.6-11.3); RBC Red Blood Cell Count 3.45 M/uL (3.86-4.86)
--- NOTE | 2023-04-03 07:03 | P.PN ---
Date of Service: 04/03/23 Subjective: doing okay no new / worsening problems labs improving afebrile ROS: 10 point ROS unable to fully obtain secondary to language barrier Physical Exam: GEN: Alert, NAD HEENT: Normal conjunctiva, sclera anicteric CV: Regular rate and rhythm, no edema Pulm: Nonlabored respirations on room air, mild +crackles Neuro: Normal speech, normal affect vitals reviewed Problem List: Syncope Fall ESTUARDO ?urinary retention/hesitancy Chronic pain Cardiomegaly Leukocytosis Microcytic anemia Syncope Fall CXR(04/01): No acute intrathoracic process suspected CT spine (04/01): Negative for acute traumatic findings; Mild interstitial lung opacities may represent mild interstitial pulmonary edema possibly from over medication vs. dehydration possible arrhythmia, most likely polypharmacy Cardiology consulted check echo in AM monitor on telemetry troponin was negative, BNP normal. Orthostatic vitals were negative Fall precautions PT consult ESTUARDO ?urinary retention/hesitancy Nephrology consulted IVF DCd 04/03 monitor UOP closely improving cardiology consulted NIDDM2 Accu-Cheks, SSI, start long acting insulin A1c: 6.7 Leukocytosis resolved, monitor WBC Blood culture: NGTD Chronic pain review home meds, restart as appropriate Microcytic anemia hgb 11.1 -> 10.0 Monitor H&H. Transfuse if hgb < 7 VTE: Heparin sq Code: Full Dispo: Home ~ 1-2 days
[2023-04-03] MEDS: INSULIN -REGULAR HUMAN 50 UNIT/0.5 ML ML SQ SCH ×4 (07:30→21:13)
[2023-04-03 07:43] LABS: Bilirubin Total 0.3 mg/dL (0.2-1.0); Potassium 4.3 mEq/L (3.5-5.1); Protein, Total 7.1 g/dL (6.4-8.2)
[2023-04-03] MEDS: MEMANTINE HCL 10 MG TABLET PO SCH (08:35)
[2023-04-03] MEDS: CITALOPRAM 10 MG TABLET PO SCH (08:35)
[2023-04-03] MEDS: TAMSULOSIN 0.4 MG SR CAP PO SCH (08:35)
[2023-04-03] MEDS ORDERED: RISPERIDONE 0.5 MG PO SCH (09:00)
[2023-04-03] MEDS ORDERED: HOME MED 1 EA UNK (Gabapentin [Gabapentin] 600 MG Tablet) PO SCH (09:00)
[2023-04-03] MEDS: HYDROCODONE/APAP 7.5/325 MG TAB PO PRN ×2 (09:50→19:37)
--- NOTE | 2023-04-03 12:15 | P.PN ---
Nephrology note: (S) Pt seen resting comfortably, given language barrier, limited interview but pt denies any acute pain. Remains on IVF. (O) Vitals reviewed in the EMR General: Other (Lethargic, elderly, NAD) HEENT: Atraumatic, Normocephalic Neck: Supple Respiratory: Clear to auscultation bilaterally, Normal air movement Cardiovascular: No edema, Regular rate/rhythm Gastrointestinal: Soft and benign, No tenderness, Other (Mild distention) Musculoskeletal: No contractures, No tenderness, No warmth Integumentary: No rashes Neurological: Awake, alert, no tremors or myoclonus) Laboratory Data (last 24 hrs) Reviewed in the EMR Conclusions/Impression: A/P) 1. Stage II ESTUARDO on possible underlying CKD NOS, review of prior EMR records show mildly elevated Cr levels at baseline with prior mild fluctuation in the setting of chronic use of anti hypertensives including JUNAID, diuretics and other. 2. ESTUARDO was pre-renal and in the setting of low BP and concurrent use of diuretics including recently added Spironolactone/HCTZ +/- Lasix 3. ESTUARDO resolving post hydration, will d/c IVF. Renal imaging shows no hydro or distended bladder 4. Some mild retention of urine unspecified, mild PVR, repeat was < 150 cc. Due to pt reports of poor urination, it appears she may have been placed on tamsulosin by PCP but that itself can contribute to orthostatic hypotension and other. Cont to monitor, avoid constipation and medications such as anti histamines or anticholinergics which can be assoc with urinary retention. No role for diuretics 5. Syncope possibly orthostatic due to hypotension, over-medication and other. 6. Trend BP, BP mild elevated this AM on IVF which will be stopped. No urgency to restart any BP lowering agents 7. Suspect polypharmacy with multiple TECHNICAL CONSULTANT acting and TECHNICAL CONSULTANT depressant medications listed, will defer to IM to review and reconcile. Caregiver/pt's daughter was interested in cutting back on pt's medications and simplifying regimen. Sage Yoon MD, ERNA
[2023-04-04] MEDS: HEPARIN 5000 UNIT/ML 1 ML VIAL SQ SCH ×2 (00:55→09:04)
[2023-04-04 04:03] LABS: Absolute Lymphocytes (CBC) 2.9 K/uL (0.7-4.9); Hematocrit 32.3 % (36.0-45.0); Lymphocytes % 29.4 % (15.3-44.8); MCV 88.1 fL (80-100); MPV 7.1 fL (7.6-11.3); RBC Red Blood Cell Count 3.67 M/uL (3.86-4.86)
[2023-04-04 04:19] LABS: Albumin 3.3 g/dL (3.4-5.0); Bilirubin Total 0.3 mg/dL (0.2-1.0); Magnesium 1.8 mg/dL (1.6-2.4); Potassium 4.3 mEq/L (3.5-5.1); Protein, Total 7.6 g/dL (6.4-8.2)
[2023-04-04 05:52] VITALS: O2SAT 96
[2023-04-04] MEDS: INSULIN -REGULAR HUMAN 50 UNIT/0.5 ML ML SQ SCH ×2 (07:26→11:30)
[2023-04-04 07:39] VITALS: BP 156/79; TEMP 98
[2023-04-04] MEDS ORDERED: GABAPENTIN 300 MG CAP PO SCH (09:00)
[2023-04-04] MEDS ORDERED: MAGNESIUM SULFATE 1 gm IVPB 1 GM/100 ML BAG IV ONE (09:00)
[2023-04-04] MEDS ORDERED: RISPERIDONE 0.25 MG TABLET PO SCH (09:00)
[2023-04-04] MEDS: CITALOPRAM 10 MG TABLET PO SCH (09:03)
[2023-04-04] MEDS: FAMOTIDINE 20 MG TAB PO SCH (09:04)
[2023-04-04] MEDS: MEMANTINE HCL 10 MG TABLET PO SCH (09:04)
--- NOTE | 2023-04-04 13:36 | P.DS ---
Admission Date: 04/01/23 Discharge Date: 04/04/23 Disposition: [facility] Reason for Admission: syncope Consultations: Cardiology - Dr. Avilez Nephrology - Dr. Yoon Brief History of Present Illness: 72yo F, PMH: chronic pain, anxiety, [id number] diabetes, hepatitis, hypertension, osteoporosis, pancreatitis Patient presents to the ER for a syncopal episode. Patient's daughter is primary historian reports patient has a labile blood pressure today systolic was 89, patient has had several syncopal episodes. Reports syncopal x 1 year. Daughter reports recent cardiology evaluation that was unremarkable. Patient may benefit from Holter monitor outpatient. Reports chronic seasonal allergies, nasal drainage, has seen risk adjustment specialist. Patient has a history of hyperglycemia on metformin blood sugar today was 235, reports noncomplaince with diabetic diet. She has elevated BUN and creatinine BUN 41 creatinine 2.88 daughter reports difficulty voiding in the last 24 hours. She reports seen Dr. Reynolds for pulmonary evaluation was not able to follow-up with his appointment. She denies chest pain, nausea vomiting diarrhea, edema, fever or chills. Hospital Course: Problem List: Syncope Fall ESTUARDO ?urinary retention/hesitancy Chronic pain Cardiomegaly Leukocytosis Microcytic anemia Patient presented with a syncopal episode. Family reported patient has been having labile blood pressures. In the ED, she was found to have an ESTUARDO, with creatinine of 2.88 and lowborderline blood pressure readings. Troponin was negative. BNP normal. Orthostatic vitals were performed after patient had already received fluid bolus and were negative. Chest x-ray and CT head were both negative. Cardiology was consulted and recommended no further inpatient evaluation/work-up needed at this time. Patient was monitored on telemetry throughout her hospitalization and remained in sinus rhythm without any irregular rhythm noted. Family reported patient recently underwent "complete cardiac work-up" at her ground wire[place] office and were told everything was normal. Including what sounded like a less than 1 day equipment monitor phototypesetting. Patient may warrant the use of an event monitor. Nephrology was consulted given history of possible underlying CKD and this ESTUARDO. Her ESTUARDO was felt to be prerenal in the setting of low blood pressure and conc urrent use of diuretics. Patient also has a more recent history of difficulty urinating/hesitancydescribed as taking few minutes to start urinating. This symptoms have been ongoing for several months and wound were much more pronounced over the last 2 days. This raises concern for some degree of obstructive uropathy. Imaging did not reveal any hydronephrosis. Patient is on several medications that have side effects similar to her presentation/symptoms, and several these medications do have a risk of causing urinary retention. Discussed with the patient's daughter, if the patient's symptoms allow, to discontinue allergy medication, discontinue the muscle relaxer (released try to wean off this medication/lower dose). Her renal function improved with IV fluids and was back to baseline. Recommend following up with nephrology. Consider using Flonase twice a day for allergies and avoidance of allergy pills. Nephrology also recommended for the patient to stop taking the spironolactone and hydrochlorothiazide. Family were uncertain if the patient was still taking the furosemide, which she should stop as well if she was taking them. For the short-term, did not need to be too aggressive with her antihypertensive medications given how labile her pressures have been in her recurrent syncopal episodes over the last several months. Discussed with her daughter, that if the patient is having symptoms, to then check her blood pressure. If her blood pressure is greater than 160 systolic, repeat the blood pressure reading again in 45-60 minutes. If the blood pressure again remains elevated above 160 systolic, patient should take her lisinopril as previously instructed. Follow-up with PCP who can further evaluate the patient's blood pressure in the next several days and make further adjustments as needed. Discussed that stopping these diuretics could lead to the patient retaining fluid. Family were instructed what to look for.Check weight daily. if patient gains more than 2 lbs in 1 day, can slowly restart and follow up with cardiology. Recommend to follow up with PCP to go through home medications, possibly change/stop those that are no longer needed Patient is to be discharged home with home health. new / change in medications Stop allergy medication - levocitirizne, although safer than others, can still lead to urinary retention, If worsening allergies, consider nasal sprayFlonase. Avoid pills Stop taking sprionolactone-HCTZ for now. If systolic blood pressure > 160 for 2 readings in a row can take lisinopril If continuing tamsulosin, advised to take at night, discussed the risk of this medication causing orthostasis/syncope in patients. Try to wean pepcid as tolerated. Can cause dizziness/lightheadedness among other symptoms with chronic use. Stop Levaquin, no evidence of infection wean muscle relaxer - tizanidine - can lead to urinary retention and increase risk of falls For diabetes; HgbA1c: 6.7 Follow up with PCP Follow up: PCP 3-5 days Nephrology within a few weeks (Dr. Yoon) Physical Exam: GEN: Alert, NAD HEENT: Normal conjunctiva, sclera anicteric CV: Regular rate and rhythm, no edema Pulm: Nonlabored respirations on room air, clear bilaterally ABD: Soft, nontender, nondistended Neuro: Normal speech, normal affect Vital Signs/Physical Exam: Temp Pulse Resp BP Pulse Ox 98.0 F 72 16 156/79 H 98 04/04/23 07:37 04/04/23 07:37 04/04/23 07:37 04/04/23 07:37 04/04/23 07:37 Laboratory Data at Discharge: WBC 9.80 thou/uL (4.3-10.9) 04/04/23 03:24 Hgb 10.7 g/dL (12.0-15.0) L 04/04/23 03:24 Hct 32.3 % (36.0-45.0) L 04/04/23 03:24 Plt Count 295 thou/uL (152-406) 04/04/23 03:24 PT 11.8 SECONDS (9.5-12.5) 04/01/23 14:48 INR 1.07 04/01/23 14:48 APTT 36.7 SECONDS (24.3-36.9) 04/01/23 14:48 Sodium 138 mEq/L (136-145) 04/04/23 03:24 Potassium 4.3 mEq/L (3.5-5.1) 04/04/23 03:24 BUN 25 mg/dL (7-18) H 04/04/23 03:24 Creatinine 1.47 mg/dL (0.55-1.02) H 04/04/23 03:24 Glucose 107 mg/dL (74-106) H 04/04/23 03:24 Magnesium 1.8 mg/dL (1.6-2.4) 04/04/23 03:24 Total Bilirubin 0.3 mg/dL (0.2-1.0) 04/04/23 03:24 AST 28 U/L (15-37) 04/04/23 03:24 ALT 31 U/L (13-56) 04/04/23 03:24 Alkaline Phosphatase 73 U/L (45-117) 04/04/23 03:24 Home Medications: Alprazolam 2 mg PO BEDTIME 06/14/21 Cholecalciferol (Vitamin D3) [Vitamin D3] 1,000 unit PO DAILY 06/14/21 Citalopram [Celexa*] 20 mg PO DAILY 06/14/21 Hydrocodone Bit/Acetaminophen [Hydrocodon-Acetaminoph 7.5-325] 1 each PO TID PRN 06/14/21 risperiDONE [Risperidone] 0.5 mg PO DAILY 06/14/21 Alendronate Sodium 70 mg PO SEECOM 04/01/23 Famotidine 20 mg PO DAILY 04/01/23 Gabapentin 600 mg PO DAILY 04/01/23 Memantine HCl 10 mg PO DAILY 04/01/23 Tamsulosin HCl [Flomax] 0.4 mg PO DAILY 04/01/23 Tizanidine HCl 4 mg PO BEDTIME 04/01/23 Vit C/E/Zn/Coppr/Lutein/Zeaxan [Preservision Areds 2 Softgel] 1 each PO DAILY 04/01/23 Physician Discharge Instructions: Patient presented with a syncopal episode. Family reported patient has been having labile blood pressures. In the ED, she was found to have an ESTUARDO, with creatinine of 2.88 and lowborderline blood pressure readings. Troponin was negative. BNP normal. Orthostatic vitals were performed after patient had already received fluid bolus and were negative. Chest x-ray and CT head were both negative. Cardiology was consulted and recommended no further inpatient evaluation/work-up needed at this time. Patient was monitored on telemetry throughout her hospita lization and remained in sinus rhythm without any irregular rhythm noted. Family reported patient recently underwent "complete cardiac work-up" at her ground wire[employer] office and were told everything was normal. Including what sounded like a less than 1 day equipment monitor phototypesetting. Patient may warrant the use of an event monitor. Nephrology was consulted given history of possible underlying CKD and this ESTUARDO. Her ESTUARDO was felt to be prerenal in the setting of low blood pressure and concurrent use of diuretics. Patient also has a more recent history of difficulty urinating/hesitancydescribed as taking few minutes to start urinating. This symptoms have been ongoing for several months and wound were much more pronounced over the last 2 days. This raises concern for some degree of obstructive uropathy. Imaging did not reveal any hydronephrosis. Patient is on several medications that have side effects similar to her presentation/symptoms, and several these medications do have a risk of causing urinary retention. Discussed with the patient's daughter, if the patient's symptoms allow, to discontinue allergy medication, discontinue the muscle relaxer (released try to wean off this medication/lower dose). Her renal function improved with IV fluids and was back to baseline. Recommend following up with nephrology. Consider using Flonase twice a day for allergies and avoidance of allergy pills. Nephrology also recommended for the patient to stop taking the spironolactone and hydrochlorothiazide. Family were uncertain if the patient was still taking the furosemide, which she should stop as well if she was taking them. For the short-term, did not need to be too aggressive with her antihypertensive medications given how labile her pressures have been in her recurrent syncopal episodes over the last several months. Discussed with her daughter, that if the patient is having symptoms, to then check her blood pressure. If her blood pressure is greater than 160 systolic, repeat the blood pressure reading again in 45-60 minutes. If the blood pressure again remains elevated above 160 systolic, patient should take her lisinopril as previously instructed. Follow-up with PCP who can further evaluate the patient's blood pressure in the next several days and make further adjustments as needed. Discussed that stopping these diuretics could lead to the patient retaining fluid. Family were instructed what to look for.Check weight daily. if patient gains more than 2 lbs in 1 day, can slowly restart and follow up with cardiology. Recommend to follow up with PCP to go through home medications, possibly change/stop those that are no longer needed Patient is to be discharged home with home health. new / change in medications Stop allergy medication - levocitirizne, although safer than others, can still lead to urinary retention, If worsening allergies, consider nasal sprayFlonase. Avoid pills Stop taking sprionolactone-HCTZ for now. If systolic blood pressure > 160 for 2 readings in a row can take lisinopril If continuing tamsulosin, advised to take at night, discussed the risk of this medication causing orthostasis/syncope in patients. Try to wean pepcid as tolerated. Can cause dizziness/lightheadedness among other symptoms with chronic use. Stop Levaquin, no evidence of infection wean muscle relaxer - tizanidine - can lead to urinary retention and increase risk of falls For diabetes; HgbA1c: 6.7 Follow up with PCP Follow up: PCP 3-5 days Nephrology within a few weeks (Dr. Yoon) Followup: Sage Yoon [ACTIVE - CAN ADMIT] - Alis Jamison DO, DO [Primary Care Provider] - Time spent managing pt's care (in minutes): 45
--- NOTE | 2023-04-04 13:49 | P.HP ---
Certification for Inpatient Patient admitted to: Observation With expected LOS: <2 Midnights Patient will require the following post-hospital care: None Practitioner: I am a practitioner with admitting privileges, knowledge of patient current condition, hospital course, and medical plan of care. Services: Services provided to patient in accordance with Admission requirements found in Title 42 Section 412.3 of the Code of Federal Regulations Patient History Date of Service: 04/04/23 Reason for admission: syncope History of Present Illness: 72-year-old [place] female with a past medical history of chronic pain, anxiety, [id number] diabetes, hepatitis, hypertension, osteoporosis, pancreatitis presents to the ER for a syncopal episode. Patient's daughter is primary historian reports patient has a labile blood pressure today systolic was 89, patient has had several syncopal episodes. Reports syncopal x 1 year. Daughter reports recent cardiology evaluation that was unremarkable. Patient may benefit from Holter monitor outpatient. Reports chronic seasonal allergies, nasal drainage, has seen credit card specialist. Patient has a history of hyperglycemia on metformin blood sugar today was 235, reports noncomplaince with diabetic diet. She has elevated BUN and creatinine BUN 41 creatinine 2.88 daughter reports difficulty voiding in the last 24 hours. She reports seen Dr. Reynolds for pulmonary evaluation was not able to follow-up with his appointment. She denies chest pain, nausea vomiting diarrhea, edema, fever or chills. Laboratory evaluation WBC 13 with left shift, microcytic anemia hemoglobin 11.1, acute on chronic kidney injury, BUN 41, creatinine 2.88, GFR 17, hyperglycemia blood glucose 235, troponin was normal at 4.1, BNP was normal. Chest x-ray mild cardiomegaly, lungs are clear CT of the spine, head and chest no intracranial process, no fracture mild interstitial lung opacities may represent mild incisional pulmonary edema, mild prominent cardiac size, no pneumothorax no pleural effusion no pleural fluid, IMPRESSION: Negative for acute traumatic findings within the above detailed limitations Allergies No Known Allergies Allergy (Verified 12/26/15 07:13) Home Medications: Alprazolam 2 mg PO BEDTIME 06/14/21 Cholecalciferol (Vitamin D3) [Vitamin D3] 1,000 unit PO DAILY 06/14/21 Citalopram [Celexa*] 20 mg PO DAILY 06/14/21 Hydrocodone Bit/Acetaminophen [Hydrocodon-Acetaminoph 7.5-325] 1 each PO TID PRN 06/14/21 risperiDONE [Risperidone] 0.5 mg PO DAILY 06/14/21 Alendronate Sodium 70 mg PO SEECOM 04/01/23 Famotidine 20 mg PO DAILY 04/01/23 Gabapentin 600 mg PO DAILY 04/01/23 Levocetirizine Dihydrochloride [24Hr Allergy Relief] 5 mg PO DAILY 04/01/23 Levofloxacin [Levaquin] 500 mg PO DAILY 04/01/23 Memantine HCl 10 mg PO DAILY 04/01/23 Spironolact/Hydrochlorothiazid [Spironolactone-Hctz 25-25 Tab] 1 each PO DAILY 04/01/23 Tamsulosin HCl [Flomax] 0.4 mg PO DAILY 04/01/23 Tizanidine HCl 4 mg PO BEDTIME 04/01/23 Vit C/E/Zn/Coppr/Lutein/Zeaxan [Preservision Areds 2 Softgel] 1 each PO DAILY 04/01/23 - Past Medical/Surgical History Has patient received pneumonia vaccine in the past: Yes Diabetic: Yes -: chronic headache -: hepatitis c -: chronic pain -: pelvic & Lumbar spine compression fracture 01/2015 -: neuropathy -: pancreatitis -: Hypertension -: Anxiety -: hysterectomy, cholecystectomy -: bile duct stent -: kyphoplasty -: ERCP Psychosocial/ Personal History: Patient lives at home with her family - Family History Mother Notes: no history Father -: Heart disease, Lung disease, GI disease, Cancer - Social History Smoking Status: Never smoker Alcohol use: No CD- Drugs: No Caffeine use: Yes Place of Residence: Home Review of Systems 10-point ROS is otherwise unremarkable Physical Examination - Vital Signs Temperature: 98.0 F Blood Pressure: 156/79 Pulse: 72 Respirations: 16 Pulse Ox (%): 98 - Physical Exam General: Alert, Oriented x3 HEENT: Atraumatic Neck: 2+ carotid pulse no bruit Respiratory: Clear to auscultation bilaterally Cardiovascular: No edema, No rubs Gastrointestinal: Normal bowel sounds, No tenderness Musculoskeletal: Other Integumentary: No rashes Neurological: Normal gait Lymphatics: No axilla or inguinal lymphadenopathy, Axilla lymphadenopathy Urinary: Dialysis catheter Rectal: Small Assessment and Plan - Plan Assessment plan syncope likely due to labile blood pressure versus polysubstance use Fall acute renal failure Chronic pain with polypharmacy cardiomegaly leukocytosis microcytic anemia diabetes uncontrolled Syncope Cardiology consult, troponin was normal at 4.1, BNP was normal. May need Holter monitor outpatient? Orthostatic vital signs, daily weight, IO Fall CT of the spine, head and chest no intracranial process, no fracture mild interstitial lung opacities may represent mild incisional pulmonary edema, mild prominent cardiac size, no pneumothorax no pleural effusion no pleural fluid, IMPRESSION: Negative for acute traumatic findings within the above detailed limitations Fall precaution, PT eval cardiomegaly cardilogy consulted, trend bnp Acute renal failure acute on chronic kidney injury, BUN 41, creatinine 2.88, GFR 17, Consult nephrology, gentle IV fluids, daily weight, renal diet post void residuals Uncontrolled diabetes glucose 235 A1c in the a.m., Accu-Cheks, sliding scale insulin, start long acting insulin Leukocytosis WBC 13 with left shift, Trend WBCs, cultures, Chronic pain with polypharmacy review home meds, Microcytic anemia microcytic anemia hemoglobin 11.1, trend H&H, transfuse hemoglobin less than 7 DVT prophylaxis heparin Full code Renal diet - Advance Directives Does patient have a Living Will: No Does patient have a Durable POA for Healthcare: No Physician Review: Patient Assessed, Agree with Above Assessment and Plan
--- NOTE | 2023-04-05 15:06 | EKG ---
Test Date: 2023-04-01 Test Time: 15:20:35 Dialysis Patient Care Technician: SOLANGE MEASUREMENT RESULTS: Intervals: Rate: 75 CT: 128 QRSD: 84 QT: 414 QTc: 462 [place]: P: 36 CT: 128 QRS: 15 T: 43 INTERPRETIVE STATEMENTS: Normal sinus rhythm T wave abnormality, consider anterior ischemia Abnormal ECG Compared to ECG 01/03/2023 21:02:50 No significant changes Electronically Signed On 04-05-23 14:58:53 CDT by Jae Avilez
== END 2023-04-04 16:50 | disposition home health service (06) | DRG 312 ==
LOC: ER 14:17 → ERHOLD 17:39 → 2ND 20:20 → OBSVTOIN 04-03 12:07
PROVIDERS: ADMIT Hospitalist; ATTEND Hospitalist
DX: R55 Syncope and collapse (principal); N17.9 Acute kidney failure, unspecified; M81.0 Age-related osteoporosis without current pathological fracture; G89.29 Other chronic pain; I51.7 Cardiomegaly; I12.9 Hypertensive chronic kidney disease with stage 1 through stage 4 chronic kidney disease, or unspecified chronic kidney disease; N18.9 Chronic kidney disease, unspecified; E11.22 Type 2 diabetes mellitus with diabetic chronic kidney disease; E11.65 Type 2 diabetes mellitus with hyperglycemia; D63.1 Anemia in chronic kidney disease; D50.9 Iron deficiency anemia, unspecified; T45.0X5A Adverse effect of antiallergic and antiemetic drugs, initial encounter; N13.9 Obstructive and reflux uropathy, unspecified; W19.XXXA Unspecified fall, initial encounter; D72.829 Elevated white blood cell count, unspecified; R33.9 Retention of urine, unspecified; Z90.49 Acquired absence of other specified parts of digestive tract; Z79.84 Long term (current) use of oral hypoglycemic drugs; Z90.710 Acquired absence of both cervix and uterus; Z79.899 Other long term (current) drug therapy
CPT/HCPCS: 36415; 70450; 71045; 71250; 72125; 80053; 81001; 82947; 83036; 83605; 83735; 83880; 84484; 85025; 85610; 85730; 87040; 93005; 96360; 97116; 97161; 97530; 99285; J1644; J1815; J3475; J7030; J7040

== ENCOUNTER 2023-04-14 15:03 | Emergency (ER) | payer OTHER ==
--- OUTSIDE RECORDS SUMMARY | 2023-04-14 15:22 | XMS REPORT | Continuity of Care Document ---
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 mg total) Me dical 00 :00 by mouth Center daily. amLODIPine 2021-2022- No 5mg QD Take [address] [facility] (NORVASC) 5 8- 08-02 tablet (5 Jasmyn kes MG tablet 00:00: 23:59 mg total) Me dical 00 :00 by mouth Center daily. iopamidol 2020-09- No [id number] 100mL 100 mL, Univers (ISOVUE 09-23 Intravenou [...] IV Push, ity of mg 16:30: Q4HPRN, [place] 24 Starting Medical on Tue07/24/21 at 1030, [...] MCG 10:59: mouth Medical capsule 53 daily. [place] alendronate Yes 70mg Take [address] [facility] (FOSAMAX) 8-26 by mouth [facility] 70 MG 10:59: every 7 Medical tablet 53 days Take Center in the morning with a full glass of water, on an empty stomach, and do not take anything else by mouth or lie down for the next 30 min. . HYDROcodone Yes 1{tbl} Q.[id number] Take [address] [facility] -acetaminop 8-26 [id number] tablet by [facility] (NORCO 10:59: 3D mouth 3 Medi josephine 5-325) 53 (three) Center 5-325 mg times per tablet daily. ursodioL Yes 500mg QD Take [address] [address] (ACTIGALL) 8-26 mg by [facility] 500 MG 10:59: mouth Medical tablet 53 daily. [place] ALPRAZolam Yes 2mg Take 2 mg [facility] [...] next 30 min. . HYDROcodone Yes 1{tbl} Q.[id number] Take [address] [facility] -acetaminop 8-26 [id number] tablet by [facility] (NORCO 10:59: 3D [...] 10:59: daily. Medica l 53 Center risperiDONE 0 Yes .5mg QD Take 0.[address] (RisperDAL) 8-26 mg by [facility] 0.5 MG 10:59: mouth Medical tablet 53 nightly. Center traMADoL 0 Yes 50mg Take [...] next 30 min. . HYDROcodone Yes 1{tbl} Q.[id number] Take [address] [facility] -acetaminop 8-26 [id number] tablet by [facility] (NORCO 10:59: 3D [...] MCG 09:40: mouth Medical capsule 47 daily. [place] alendronate Yes 70mg Take [address] [facility] (FOSAMAX) 8-26 by mouth [facility] 70 MG 09:40: every 7 Medical tablet 47 days Take Center in the morning with a full glass of water, on an empty stomach, and do not take anything else by mouth or lie down for the next 30 min. . HYDROcodone Yes 1{tbl} Q.[id number] Take [address] [facility] -acetaminop 8-26 [id number] tablet by [facility] (NORCO 09:40: 3D mouth 3 Medi josephine 5-325) 47 (three) Center 5-325 mg times per tablet daily. ursodioL Yes 500mg QD Take [address] [facility] (ACTIGALL) 8-26 mg by [facility] 500 MG 09:40: mouth Medical tablet 47 daily. [facility] (ANTIVERT) 6-21 [facility] 25 mg 00:00: Medical tablet 00 [facility] (ANTIVERT) 6-21 [facility] 25 mg 00:00: Medical tablet 00 [facility] (ANTIVERT) 6-21 [facility] 25 mg 00:00: Medical tablet 00 [facility] (ANTIVERT) 6-21 [facility] 25 mg 00:00: Medical tablet 00 [facility] (ANTIVERT) 6-21 [facility] 25 mg 00:00: Medical tablet 00 [facility] (ANTIVERT) 6-21 [facility] 25 mg 00:00: Medical tablet 00 [facility] (ANTIVERT) 6-21 [facility] 25 mg 00:00: Medical tablet [facility] (ANTIVERT) 6-21 [facility] 25 mg 00:00: Medical tablet 00 [facility] (ANTIVERT) 6-21 [facility] 25 mg 00:00: Medical tablet 00 [facility] (ANTIVERT) 6-21 [facility] 25 mg 00:00: Medical tablet 00 [facility] (ANTIVERT) 6-21 [facility] 25 mg 00:00: Medical tablet 00 [facility] (ANTIVERT) 6-21 [facility] 25 mg 00:00: Medical tablet 00 [place] Nortriptyli Nortriptyli Yes HOLLIE TAKE 1 UT ne HCl - 25 ne HCl - 25 5-30 DOMENICO M.DKenrick CAPSULE AT [facility] MG Oral MG Oral [...] ity of mg 24 hr 08:12: daily. [facility] 18 Medical Branch ALPRAZolam Yes [...] ity of mg 24 hr 08:12: daily. [facility] 18 Medical Branch ALPRAZolam Yes [...] ity of mg 24 hr 08:12: daily. [place] capsule 18 Medical Branch ALPRAZolam 0 Yes 2mg Take 2 mg [place] (XANAX) 2 7-07 by mouth ity of mg tablet 08:12: at bedtime [place] 18 as needed Medical for Sleep. Branch morphine 0 Yes 30mg Take 30 mg Uni vers (AVINZA) 30 7-07 by mouth ity of mg 24 hr 08:12: daily. [facility] 18 Medical Branch amitriptyli 0 Yes 10mg Take 10 mg Univers ne (ELAVIL) 7-07 by mouth ity of 10 mg 08:12: at [place] tablet 18 bedtime. Medical Branch ALPRAZolam 0 Yes 2mg Take [...] ity of mg 24 hr 08:12: daily. [place] capsule 18 Medical Branch ALPRAZolam 0 Yes [...] ity of mg 24 hr 08:12: daily. [place] capsule 18 Medical Branch ALPRAZolam 2016-0 Yes [...] of mg 24 hr 08:12: daily. [place] [facility] 18 Medical Branch ALPRAZolam 0 Yes 2mg [...] Take 2 mg [place] (XANAX) 2 03-18 by mouth ity of mg tablet 08:12: [...] [place] 00 TWICE A Medical DAY WITH [place] FOOD meloxicam Yes TAKE 1 Univer s (MOBIC) 7.5 6-15 TABLET BY ity of mg tablet 00:00: MOUTH [place] 00 TWICE A Medical DAY WITH [place] FOOD meloxicam Yes TAKE 1 Univer s (MOBIC) 7.5 6-15 TABLET BY ity of mg tablet 00:00: MOUTH [place] 00 TWICE A Medical DAY WITH [place] FOOD meloxicam Yes TAKE 1 Univer s (MOBIC) 7.5 6-15 TABLET BY ity of mg tablet 00:00: MOUTH [place] 00 TWICE A Medical DAY WITH [place] FOOD meloxicam Yes TAKE 1 Univer s (MOBIC) 7.5 6-15 TABLET BY ity of mg tablet 00:00: MOUTH [place] 00 TWICE A Medical DAY WITH [place] FOOD meloxicam Yes TAKE 1 Univer s (MOBIC) 7.5 6-15 TABLET BY ity of mg tablet 00:00: MOUTH [place] 00 TWICE A Medical DAY WITH Branch FOOD meloxicam Yes TAKE 1 Univer s (MOBIC) 7.5 6-15 TABLET BY ity of mg tablet 00:00: MOUTH [place] 00 TWICE A Medical DAY WITH [place] FOOD meloxicam Yes TAKE 1 Univer s [...] BID. [place] tablet 00 Medical Branch Lisinopril, 0 Yes Univer s Bulk, 100 % 6-03 ity of Powd 00:00: Medical Branch Lisinopril, 0 Yes Univer s Bulk, 100 % 6-03 ity of Powd 00:00: 00 Medical Branch Lisinopril, Yes Univer s [...] Powd 00:00: [place] 00 Medical Branch gabapentin 2015-0 Yes TAKE 1 Unive rs (NEURONTIN) 5-20 TABLET BY ity of 600 mg 00:00: MOUTH [place] tablet 00 EVERY 8 Medical HOURS Branch gabapentin 0 Yes TAKE 1 Unive rs (NEURONTIN) 5-20 [...] mg tablet 00 times Medical daily. Branch cippriscilaxac 2014-09 Yes 500mg Take 1 Tab Univers in HCl 1-30 by mouth 2 ity of (CIPRO) 500 00:00: (two) [place] mg tablet 00 times Medical daily. Branch cippriscilaxac 2014-09 Yes 500mg Take 1 Tab Univers in HCl 1-30 by mouth 2 ity of (CIPRO) 500 00:00: (two) [place] mg tablet 00 times Medical daily. Branch ciprofbillxac 2014-09 Yes 500mg Take 1 Tab Univers in HCl 1-30 by mouth 2 ity of (CIPRO) 500 00:00: (two) [place] mg tablet 00 times Medical daily. Branch cippriscilaxac 2014-09 Yes 500mg Take 1 Tab Univers in HCl 1-30 by mouth 2 ity of (CIPRO) 500 00:00: (two) [place] mg tablet 00 times Medical daily. Branch ciprofbillxac 2014-09 Yes 500mg Take 1 Tab Univers in HCl 1-30 by mouth 2 ity of (CIPRO) 500 00:00: (two) [place] mg tablet 00 times Medical daily. Branch cippriscilaxac 2014-09 Yes 500mg Take 1 Tab Univers in HCl 1-30 by mouth 2 ity of (CIPRO) 500 00:00: (two) [place] mg tablet 00 times Medical daily. Branch cippriscilaxac 2014-09 Yes 500mg Take 1 Tab Univers in HCl 1-30 by mouth 2 ity of (CIPRO) 500 00:00: (two) [place] mg tablet 00 times Medical daily. Branch ciprofloxac 2014-09 Yes 500mg Take 1 Tab Univers in HCl 1-30 by mouth 2 ity of (CIPRO) 500 00:00: (two) [place] mg tablet 00 times Medical daily. Branch ciprofbillxac 2014-09 Yes 500mg Take 1 Tab Univers in HCl 1-30 by mouth 2 ity of (CIPRO) 500 00:00: (two) [place] mg tablet 00 times Medical daily. Branch ciprofbillxac 2014-09 Yes 500mg Take 1 Tab Univers in HCl 1-30 by mouth 2 ity of (CIPRO) 500 00:00: (two) [place] mg tablet 00 times Medical daily. Branch Immunizations Ordered Filled Immunization Date Status Comments [facility] e Immunization Name Name SARS-COV-2 COVID-19 2020-11-11 Completed Unive rsity of PFIZER VACCINE 00:00:00 [facility] SARS-COV-2 COVID-19 2020-11-11 Completed Unive rsity of PFIZER VACCINE 00:00:00 [facility] SARS-COV-2 COVID-19 2020-11-11 Completed Unive rsity of PFIZER VACCINE 00:00:00 [facility] SARS-COV-2 COVID-19 2020-11-11 Completed Unive rsity of PFIZER VACCINE 00:00:00 [facility] SARS-COV-2 COVID-19 2020-11-11 Completed Unive rsity of PFIZER VACCINE 00:00:00 [facility] SARS-COV-2 COVID-19 2020-11-11 Completed Unive rsity of PFIZER VACCINE 00:00:00 [facility] SARS-COV-2 COVID-19 2020-11-11 Completed Unive rsity of PFIZER VACCINE 00:00:00 [facility] SARS-COV-2 COVID-19 2020-11-11 Completed Unive rsity of PFIZER VACCINE 00:00:00 [facility] SARS-COV-2 COVID-19 2020-11-11 Completed Unive rsity of PFIZER VACCINE 00:00:00 [facility] SARS-COV-2 COVID-19 2020-11-11 Completed Unive rsity of PFIZER VACCINE 00:00:00 [facility] SARS-COV-2 COVID-19 2020-11-11 Completed Unive rsity of PFIZER VACCINE 00:00:00 [facility] SARS-COV-2 COVID-19 2020-11-11 Completed Unive rsity of PFIZER VACCINE 00:00:00 [facility] SARS-COV-2 COVID-19 2020-11-11 Completed Unive rsity of PFIZER VACCINE 00:00:00 [facility] SARS-COV-2 COVID-19 2020-11-11 Completed Unive rsity of PFIZER VACCINE 00:00:00 [facility] SARS-COV-2 COVID-19 2020-10-21 Completed Unive rsity of PFIZER VACCINE 00:00:00 [facility] SARS-COV-2 COVID-19 2020-10-21 Completed Unive rsity of PFIZER VACCINE 00:00:00 [facility] SARS-COV-2 COVID-19 2020-10-21 Completed Unive rsity of PFIZER VACCINE 00:00:00 [facility] SARS-COV-2 COVID-19 2020-10-21 Completed Unive rsity of PFIZER VACCINE 00:00:00 [facility] SARS-COV-2 COVID-19 2020-10-21 Completed Unive rsity of PFIZER VACCINE 00:00:00 [facility] SARS-COV-2 COVID-19 2020-10-21 Completed Unive rsity of PFIZER VACCINE 00:00:00 [facility] SARS-COV-2 COVID-19 2020-10-21 Completed Unive rsity of PFIZER VACCINE 00:00:00 [facility] SARS-COV-2 COVID-19 2020-10-21 Completed Unive rsity of PFIZER VACCINE 00:00:00 [facility] SARS-COV-2 COVID-19 2020-10-21 Completed Unive rsity of PFIZER VACCINE 00:00:00 [facility] SARS-COV-2 COVID-19 2020-10-21 Completed Unive rsity of PFIZER VACCINE 00:00:00 [facility] SARS-COV-2 COVID-19 2020-10-21 Completed Unive rsity of PFIZER VACCINE 00:00:00 [facility] SARS-COV-2 COVID-19 2020-10-21 Completed Unive rsity of PFIZER VACCINE 00:00:00 [facility] SARS-COV-2 COVID-19 2020-10-21 Completed Unive rsity of PFIZER VACCINE 00:00:00 [facility] SARS-COV-2 COVID-19 2020-10-21 Completed Unive rsity of PFIZER VACCINE 00:00:00 [facility] Vital Signs Vital Name Observation Time Observation Value Comments Source WEIGHT 2021-03-10 62.596 kg 11:08:00 Body height 2022-10-21 149.9 cm University of 15:35:00 [facility] Body weight 2022-10-21 62.596 kg University of 15:35:00 [facility] BMI 2022-10-21 27.87 kg/m2 University of 15:35:00 [facility] Body height 2022-10-04 149.9 cm University of 20:30:00 [facility] Body weight 2022-10-04 62.596 kg University of 20:30:00 [facility] BMI 2022-10-04 27.87 kg/m2 University 20:30:00 [facility] WEIGHT 2022-04-11 62.8 kg 19:25:00 WEIGHT 2022-04-09 62.795 kg 11:00:00 WEIGHT 2022-04-11 62.8 kg 19:25:00 WEIGHT 2022-04-09 62.795 kg 11:00:00 Systolic blood 2021-07-24 144 mm[Hg] University of pressure 19:28:00 [facility] Diastolic blood 2021-07-24 90 mm[Hg] Rescue o f pressure 19:28:00 [facility] Heart rate 2021-07-24 87 /min [facility] 19:28:00 [facility] Respiratory rate 2021-07-24 18 /min [facility] 19:28:00 [facility] Oxygen saturation 2021-07-24 97 /min [facility] Arterial blood 19:28:00 [facility] by Pulse oximetry [place] Body temperature 2021-07-24 37 Carolann [facility] 16:20:00 [facility] Body weight 2021-07-24 61.236 kg University 16:20:00 [facility] BMI 2021-07-24 25.51 kg/m2 University 16:20:00 [facility] HEIGHT 2021-05-04 152.4 cm 17:29:00 WEIGHT 2021-05-04 61.689 kg 17:29:00 HEIGHT 2021-05-04 152.4 cm 17:29:00 WEIGHT 2021-05-04 61.689 kg 17:29:00 WEIGHT 2021-03-10 62.596 kg 11:08:00 Systolic blood 2022-04-13 132 mm[Hg] [facility] pressure 15:18:00 [facility] Diastolic blood 2022-04-13 85 mm[Hg] [facility] pressure 15:18:00 [facility] Heart rate 2022-04-13 83 /min [facility] 15:18:00 [facility] Body temperature 2022-04-13 37.28 Carolann [facility] [...] 74 mm[Hg] [facility] pressure 08:00:00 [facility] Heart rate 2021-05-07 76 /min [facility] 08:00:00 [facility] Body temperature 2021-05-07 36.72 Carolann [...] BP Systolic 2018-02-01 131 mm[Hg] Location: RUE; [facility] 08:36:00 Position: Sitting BP Diastolic 2018-02-01 78 mm[Hg] Location: [facility]; [facility] 08:36:00 Position: Sitting Height 2018-02-01 60 [in_us] [facility] 08:36:00 Weight 2018-02-01 117 [lb_av] [facility] 08:36:00 Body Mass Index 2018-02-01 22.85 kg/m2 [facility] Calculated 08:36:00 Heart Rate 2018-02-01 73 /min Location: R [facility] 08:36:00 Brachial Artery; Procedures Procedure Date / Time Performing Clinician Source Performed MEDICAL RELEASE/CLEARANCE 2023-03-02 05:01:00 Doctor Unassigned, No [facility] AUTHORIZATION FOR RELEASE 2023-01-05 05:01:00 Doctor Unassigned, No [facility] ASSIGNMENT OF BENEFITS 2022-10-04 20:24:45 Doctor Unassigned, No [facility] AUTHORIZATION FOR RELEASE 2022-09-28 06:01:00 Doctor Unassigned, No [facility] POCT-GLUCOSE METER 2022-04-13 15:22:00 [facility] SARS-COV2/RT-PCR ([facility] & 2022-04-13 13:39:00 [facility] REF LABS) [facility] POCT-GLUCOSE METER 2022-04-13 11:32[facility]00 [facility] 2022-04-13 07:48:00 [facility] BASIC METABOLIC PANEL 2022-04-13 04:31:00 [facility] MAGNESIUM 2022-04-13 04:[facility]-13 04:[facility] (HE[facility] ONLY[facility] 2022-04-13 04:31:00 [facility] POCT-GLUCOSE METER 2022-04-12 20:50:00 [facility] PO[facility]SE METER 2022-04-12 15:42:00 [facility] POCT-GLUCOSE METER 2022-04-12 12:42:00 [facility] PO[facility]SE METER 2022-04-12 08:06:00 [facility] BASIC METABOLIC PANEL 2022-04-12 03:22:00 [facility] MAGNESIUM 2022-04-12 03:22:00 [facility] PHOSPHORUS 2022-04-12 03:22:00 [facility] CBC (HEMOGRAM ONLY) 2022-04-12 03:22:00 [facility] POCT-GLUCOSE METER 2022-04-11 20:41:00 [facility] POCT-GLUCOSE METER 2022-04-11 15:29:00 [facility] POCT-GLUCOSE METER 2022-04-11 11:06:00 [facility] POCT-GLUCOSE METER 2022-04-11 07:19:00 [facility] BASIC METABOLIC PANEL 2022-04-11 05:21:00 [facility] MAGNESIUM 2022-04-11 05:21:00 [facility] PHOSPHORUS 2022-04-11 05:21:00 [facility] CBC (HEMOGRAM ONLY) 2022-04-11 05:21:00 [facility] POCT-GLUCOSE METER 2022-04-10 21:16:00 [facility] POCT-GLUCOSE METER 2022-04-10 16:48:00 [facility] POCT-GLUCOSE METER 2022-04-10 11:11:00 [facility] POCT-GLUCOSE METER 2022-04-10 07:33:00 [facility] BASIC METABOLIC PANEL 2022-04-10 06:00:00 [facility] MAGNESIUM 2022-04-10 06:00:00 [facility] 2022-04-10 06:00:00 [facility] CBC (HEMOGRAM ONLY) 2022-04-10 06:00:00 [facility] PREPARE LEUKO-REDUCED RBC 2022-04-09 23:54:00 [facility] POCT-GLUCOSE METER 2022-04-09 22:57:00 [facility] POCT-GLUCOSE METER 2022-04-09 17:04:00 [facility] CBC (HEMOGRAM ONLY) 2022-04-09 16:27:00 [facility] POCT-GLUCOSE METER 2022-04-09 11:41:00 [facility] POCT-GLUCOSE METER 2022-04-09 07:35:00 [facility] URINE CULTURE 2022-04-09 05:49:00 [facility] CBC W/PLT COUNT & AUTO 2022-04-09 05:41:00 [facility]EL 2022-04-09 05:41:00 [facility] MAGNESIUM 2022-04-09 05:41:00 [facility] PHOSPHORUS 2022-04-09 05:41:00 [facility] CBC W/PLT COUNT & AUTO 2022-04-09 05:41:00 Carlos Manuel [facility] POCT-GLUCOSE METER 2022-04-09 00:05:00 [facility] TRANSFUSE LEUKO-REDUCED 2022-04-08 23:02:00 [facility] RED BLOOD CELLS Center CBC (HEMOGRAM ONLY) 2022-04-08 21:58:00 [facility] METABOLIC PANEL 2022-04-08 21:58:00 Carlos Manuel [facility] MAGNESIUM 2022-04-08 21:58:00 Carlos Manuel [facility] PHOSPHORUS 2022-04-08 21:58:00 Carlos Manuel [facility] LACTIC ACID, VENOUS 2022-04-08 21:58:00 Carlos Manuel [facility] VENOUS DOPPLER LEGS 2022-04-08 19:15:00 [facility] W/PLT COUNT & AUTO 2022-04-08 17:42:00 [facility] DIFFERENTIAL [facility] CBC W/PLT COUNT & AUTO 2022-04-08 17:42:00 [facility] DIFFERENTIAL [facility] BLOOD CULTURE 2022-04-08 16:09:00 [facility] XR CHEST 1 VIEW PORTABLE 2022-04-08 15:24:00 Britney Lloyd [facility] / BEDSIDE [facility] BASIC METABOLIC PANEL 2022-04-08 15:22:00 [facility] LACTIC ACID, VENOUS 2022-04-08 15:22:00 [facility] POCT-GLUCOSE METER 2022-04-08 15:20:00 [facility] POCT-GLUCOSE METER 2022-04-08 11:31:[address] [facility] [address] LOWER EXTREMITY 2022-04-08 03:52:00 Florentino Shepherd [facility] WITHOUT IV CONTRAST [facility] XR PELVIS 1 OR 2 VIEWS 2022-04-07 20:23:[address] [facility] POCT-GLUCOSE METER 2022-04-07 17:26:00 [facility] TISSUE EXAM 2022-04-07 15:36:00 Heaven Garza [facility] XR PELVIS 1 OR 2 VIEWS 2022-04-07 15:10:00 Heaven Garza [facility] HEMIARTHROPLASTY, HIP 2022-04-07 12:16:00 Heaven Garza I [facility] POCT-GLUCOSE METER 2022-04-07 09:49:00 Britney Lloyd [facility] [place] TYPE AND SCREEN, 2022-04-07 09:12:00 Armani Vela [facility] AUTOMATED Center CBC W/PLT COUNT & AUTO 2022-04-07 06:19:00 Rosa Isela Ching [facility] DIFFERENTIAL [facility] CBC W/PLT COUNT & AUTO 2022-04-07 06:19:00 Rosa Isela [facility] DIFFERENTIAL [facility] URINE CULTURE 2022-04-07 05:15:00 [facility] W/ REFLEX 2022-04-07 05:15:00 [facility] BASIC METABOLIC PANEL 2022-04-07 05:05:00 [facility] & 2022-04-06 21:32:00 [facility] CT ABDOMEN PELVIS W 2021-07-24 18:00:55 Glenn Paulson [facility] CONTRAST Medical Branch URINALYSIS 2021-07-24 17:39:[address] [facility] LIPASE 2021-07-24 16:33:00 Singer [facility] COMP. METABOLIC PANEL 2021-07-24 16:33:[address] [facility] ([id number]) Medical Branch CBC WITH DIFF 2021-07-24 16:33:00 Paulson, [facility] NOTICE OF PRIVACY 2021-07-24 16:11:11 Doctor Unassigned, No [facility] PRACTICES Name Medical Branch REPORT OF PROCEDURE - 2021-05-06 16:07:30 Juan Alberto Shelton [facility] ENDOSCOPY URL Center ERCP,DIRECT VISUALIZATION 2021-05-06 15:00:00 Juan Alberto Shelton u [facility] SPY GLASS Center PROCEDURE W/ C-ARM 2021-05-06 15:00:00 Juan Alberto Shelton Yasmani [facility] ERCP,BALLOON SWEEPING 2021-05-06 15:00:00 Juan Alberto Shelton [facility] I [facility] CBC W/PLT COUNT & AUTO 2021-05-06 05:51:00 [facility] DIFFERENTIAL [facility] BASIC METABOLIC PANEL (7) 2021-05-06 05:51:00 [facility] HEPATIC FUNCTION PANEL 2021-05-06 05:51:00 [facility] ABORH, MANUAL 2021-05-05 05:07:00 Zunilda Rubin [facility] TYPE AND SCREEN, 2021-05-05 04:14:00 [facility] PROTHROMBIN TIME/INR 2021-05-05 04:14:00 [facility] SARS-COV2/RT-PCR ([facility] & 2021-05-05 00:18:00 [facility] REF LABS) [facility] BLOOD GAS, VENOUS 2021-05-05 00:14:00 [facility] KETONE, BLOOD 2021-05-05 00:14:00 [facility] HIGH SENSITIVITY TROPONIN 2021-05-05 00:14:00 Cherie Faustin [facility] ED ECG INTERPRETATION 2021-05-04 23:15:17 [facility] BASIC METABOLIC PANEL (7) 2021-05-04 21:30:00 Cherie Faustin [facility] HEPATIC FUNCTION PANEL 2021-05-04 21:30:00 Roxie [facility] AMYLASE 2021-05-04 21:30:00 Roxie [facility] LIPASE 2021-05-04 21:30:00 Roxie [facility] CBC W/PLT COUNT & AUTO 2021-05-04 19:37:00 Roxie [facility] ECG 12-LEAD 2021-05-04 19:22:33 Unknown, Hl7 Doctor [facility] POCT-GLUCOSE METER 2021-03-11 08:21:00 [facility] COMPREHENSIVE METABOLIC 2021-03-11 06:09:00 [facility] REPORT OF PROCEDURE - 2021-03-10 23:43:51 Kathy [facility] ENDOSCOPY URL [facility] POCT-GLUCOSE METER 2021-03-10 16:43:00 Paolo [facility] POCT-GLUCOSE METER 2021-03-10 12:45:00 Paolo [facility] [place] ERCP 2021-03-10 12:02:00 Desiree Duggan [facility] ERCP,PAPILLOTOMY 2021-03-10 11:31:00 [facility] PROCEDURE W/ C-ARM 2021-03-10 11:31:00 [facility] ERCP,BALLOON SWEEPING 2021-03-10 11:31:00 [facility] POCT-GLUCOSE METER 2021-03-10 09:07:00 Paolo [facility] CBC (HEMOGRAM ONLY) 2021-03-10 04:50:00 [facility] COMPREHENSIVE METABOLIC 2021-03-10 04:50:00 [facility] HEMOGLOBIN A1C 2021-03-10 04:50:00 [facility] [place] POCT-GLUCOSE METER 2021-03-09 23:54:00 [facility] [place] SARS-COV2/RT-PCR ([facility] & 2021-03-09 20:13:00 Desiree Dugganroz [facility] REF LABS) Center POCT-GLUCOSE METER 2021-03-09 17:22:00 [facility] [place] [facility] ABDOMEN WITHOUT IV 2021-03-09 15:38:00 [facility] CONTRAST MRCP Center POCT-GLUCOSE METER 2021-03-09 12:22:00 [facility] [place] URINALYSIS W/ REFLEX 2021-03-09 10:56:00 [facility] URINE CULTURE Center HEPATIC FUNCTION PANEL 2021-03-09 05:25:00 [place] PROTHROMBIN TIME/INR 2021-03-09 05:25:00 [facility] [place] [place] MAGNESIUM 2021-03-09 05:25:00 [facility] [place] [place] BASIC METABOLIC PANEL (7) 2021-03-09 05:25:00 [facility] CBC W/PLT COUNT & AUTO 2021-03-09 05:25:00 [facility] HEMOGLOBIN A1C 2021-03-09 05:25:00 [facility] [place] [place] MRI Brain wo contrast 2018-02-08 00:[id number] Brain w/wo contrast 2018-02-01 [id number]bl[facility] [...] Ce nter Vaccine (#1)] Future Scheduled 2022-09-[address] [facility] 00:00:00 measurement (procedure) [facility] [code = [id number]] Future Scheduled 2021-09-[address] [facility] 00[facility]00:00 measurement (procedure) [facility] [code = [id number]] Future Scheduled 2021-09-[address] [facility] 00:00:00 measurement (procedure) [facility] [code = 35241073] Future Scheduled 2021-09-[address] [facility] 00:00:00 measurement (procedure) [facility] [code = 44063556] Future Scheduled 2021-09-[address] [facility] 00:00:00 measurement (procedure) [facility] [code = 20612888] Future Scheduled 2021-09-[address] [facility] 00:00:00 measurement (procedure) [facility] [code = 07789860] Future Scheduled 2021-09-[address] [facility] 00:00:00 measurement (procedure) [facility] [code = 91340196] Future Scheduled 2021-09-[address] [facility] 00[facility]00:00 measurement (procedure) [facility] [code = 76966961] Future Scheduled 2021-09-[address] [facility] 00:00:00 measurement (procedure) [facility] [code = 27678810] Future Scheduled 2021-09-[address] [facility] 00:00:00 measurement (procedure) [facility] [code = 21020392] Future Scheduled 2021-09-[address] [facility] 00:00:00 measurement (procedure) [facility] [code = 40065061] Future Scheduled 2021-09-[address] [facility] 00:00:00 measurement (procedure) [facility] [code = 42685922] Future Scheduled 2021-05-13 INFLUENZA VACCINE (#1) [facility] - [id number] PCV13) [code = PNEUMOCOCCAL 65+ YRS (1 of 1 - [id number]_Jabpflz PCV13)] Future Scheduled 2013 PNEUMOCOCCAL 65+ YRS ([address] [facility] 00:00:00 of 1 - [id number]_Eckwftd [facility] PCV13) [code = PNEUMOCOCCAL 65+ YRS (1 of 1 - [id number]_Weqjoza PCV13)] Future Scheduled 2013 PNEUMOCOCCAL 65+ YRS ([address] [facility] 00:00:00 of 1 - [id number]_Areamxb [facility] PCV13) [code = PNEUMOCOCCAL 65+ YRS (1 of 1 - SVHS10_Jybxkxr PCV13)] Future Scheduled 2013 PNEUMOCOCCAL 65+ YRS ([address] [facility] 00:00:00 of 1 - DNEN90_Gqzehfo [facility] PCV13) [code = PNEUMOCOCCAL 65+ YRS (1 of 1 - XECK71_Hnqviei PCV13)] Future Scheduled 2013 PNEUMOCOCCAL 65+ YRS [...] 65+ YRS (1 - PCV)] Future Scheduled 2004-10-[address] [...] 00:00:00 examination Medical Center (regime/therapy) [code = 359263500] Future Scheduled 1958 Urine screening for [facility] 00:00:00 protein (procedure) Medical Center [code = 912865872] Future Scheduled 1958 DIABETIC EYE EXAM [code [facility] 00:00:00 = DIABETIC EYE EXAM] Medical Center Future Scheduled [address] [facility] 00:[facility]:00 examination Medical Center (regime/therapy) [code = 691675523] Future Scheduled 1958 Urine screening for [facility] 00:00:00 protein (procedure) Medical Center [code = 359691530] Future Scheduled 1958 DIABETIC EYE EXAM [code [facility] 00:00:00 = DIABETIC EYE EXAM] Medical Center Future Scheduled [address] [facility] 00:00:00 examination Medical Center (regime/therapy) [code = 629058998] Future Scheduled 1958 Urine screening for [facility] 00:00:00 protein (procedure) Medical Center [code = 081367386] Future Scheduled 1958 DIABETIC EYE EXAM [code [facility] 00:00:00 = DIABETIC EYE EXAM] Medical Center Future Scheduled [address] [facility] 00:00:00 examination Medical Center (regime/therapy) [code = 740541670] Future Scheduled 1958 Urine screening for [facility] 00:00:00 protein (procedure) Medical Center [code = 923398379] Future Scheduled 1958 DIABETIC EYE EXAM [code [facility] 00:00:00 = DIABETIC EYE EXAM] Medical Center Future Scheduled [address] [facility] 00:00:00 examination Medical Center (regime/therapy) [code = 374563766] Future Scheduled 1958 Urine screening for [facility] 00:00:00 protein (procedure) Medical Center [code = 897985469] Future Scheduled 1958 DIABETIC EYE EXAM [code [facility] 00:00:00 = DIABETIC EYE EXAM] Medical Center Future Scheduled [address] [facility] 00:00:00 examination Medical Center (regime/therapy) [code = 048966736] Future Scheduled 1958 Urine screening for [facility] 00:00:00 protein (procedure) Medical Center [code = 198889465] Future Scheduled 1958 DIABETIC EYE EXAM [code [facility] 00:00:00 = DIABETIC EYE EXAM] Medical Center Future Scheduled [address] [facility] 00:00:00 examination Medical Center (regime/therapy) [code = 505216230] Future Scheduled 1958 Urine screening for [facility] 00:00:00 protein (procedure) Medical Center [code = 187416842] Future Scheduled 1958 DIABETIC EYE EXAM [code [facility] 00:00:00 = DIABETIC EYE EXAM] Medical Center Future Scheduled [address] [facility] 00:00:00 examination Medical Center (regime/therapy) [code = 614303890] Future Scheduled 1958 Urine screening for [facility] 00:00:00 protein (procedure) Medical Center [code = 168600495] Future Scheduled 1958 DIABETIC EYE EXAM [code [facility] 00:00:00 = DIABETIC EYE EXAM] Medical Center Future Scheduled [address] [facility] 00:00:00 examination Medical Center (regime/therapy) [code = 077498287] Future Scheduled 1958 Urine screening for [facility] 00:00:00 protein (procedure) Medical Center [code = 891078890] Future Scheduled 1958 DIABETIC EYE EXAM [code [facility] 00:00:00 = DIABETIC EYE EXAM] Medical Center Future Scheduled [address] [facility] 00:00:00 examination Medical Center (regime/therapy) [code = 198393483] Future Scheduled 1958 Urine screening for [facility] 00:00:00 protein (procedure) Medical Center [code = 791408035] Future Scheduled 1958 DIABETIC EYE EXAM [code [facility] 00:00:00 = DIABETIC EYE EXAM] Medical Center Future Scheduled [address] [facility] 00:00:00 examination Medical Center (regime/therapy) [code = 149641310] Future Scheduled 1958 Urine screening for [facility] 00:00:00 protein (procedure) Medical Center [code = 445260771] Future Scheduled 1958 DIABETIC EYE EXAM [code [facility] 00:00:00 = DIABETIC EYE EXAM] Medical Center Future Scheduled [address] [facility] 00:00:00 examination Medical Center (regime/therapy) [code = 519797706] Future Scheduled 1958 Urine screening for [facility] 00:00:00 protein (procedure) Medical Center [code = 469659710] Future Scheduled 1954 PNEUMOCOCCAL 65+ YRS (1 [...] breast Medical C enter (procedure) [code = 075990811] Future Scheduled 1948 Screening for malignant [facility] 00:00:00 neoplasm of colon Medical Ce nter (procedure) [code = 651418384] Future Scheduled 1948 Screening for malignant [facility] 00:00:00 neoplasm of breast Medical C enter (procedure) [code = 519688871] Future Scheduled 1948 Screening for malignant [facility] 00:00:00 neoplasm of colon Medical Ce nter (procedure) [code = 869481913] Future Scheduled 1948 Screening for malignant [facility] 00:00:00 neoplasm of breast Medical C enter (procedure) [code = 743233457] Future Scheduled 1948 Screening for malignant [facility] 00:00:00 neoplasm of colon Medical Ce nter (procedure) [code = 965986786] Future Scheduled 1948 Screening for malignant [facility] 00:00:00 neoplasm of breast Medical C enter (procedure) [code = 533821998] Future Scheduled 1948 Screening for malignant [facility] 00:00:00 neoplasm of colon Medical Ce nter (procedure) [code = 929148943] Future Scheduled 1948 Screening for malignant [facility] 00:00:00 neoplasm of breast Medical C enter (procedure) [code = 480567799] Future Scheduled 1948 CT Colonography (combo) [facility] 00:00:00 [code = CT Colonography [facility] (combo)] Future Scheduled 1948 Screening for malignant [facility] 00:00:00 neoplasm of colon Medical Ce nter (procedure) [code = 311319319] Future Scheduled 1948 Screening for malignant [facility] 00:00:00 neoplasm of colon Medical Ce nter (procedure) [code = 412590899] Future Scheduled 1948 DXA SCAN [code = DXA [facility] 00:00:00 SCAN] [facility] Future Scheduled 1948 Screening for malignant [facility] 00:00:00 neoplasm of colon Medical Ce nter (procedure) [code = 714823439] Future Scheduled 1948 Screening for malignant [facility] 00:00:00 neoplasm of colon Medical Ce nter (procedure) [code = 339204873] Future Scheduled 1948 Sigmoidoscopy [code = [facility] S[facility]oidoscopy] [facility] Future Scheduled 1948 Screening for malignant [facility] 00:00:00 neoplasm of breast Medical C enter (procedure) [code = 190365833] Future Scheduled 1948 CT Colonography (combo) [facility] 00:00:00 [code = CT Colonography [facility] (combo)] Future Scheduled 1948 Screening for malignant [facility] 00:00:00 neoplasm of colon Medical Ce nter (procedure) [code = 572834542] Future Scheduled 1948 Screening for malignant [facility] 00:00:00 neoplasm of colon Medical Ce nter (procedure) [code = 270148316] Future Scheduled 1948 DXA SCAN [code = DXA [facility] 00:00:00 SCAN] [facility] Future Scheduled 1948 Screening for malignant [facility] 00:00:00 neoplasm of colon Medical Ce nter (procedure) [code = 376153285] Future Scheduled 1948 Screening for malignant [facility] 00:00:00 neoplasm of colon Medical Ce nter (procedure) [code = 202502384] Future Scheduled 1948 Sigmoidoscopy [code = [facility] S[facility]oidoscopy] [facility] Future Scheduled 1948 Screening for malignant [facility] 00:00:00 neoplasm of breast Medical C enter (procedure) [code = 091314087] Future Scheduled 1948 CT Colonography (combo) [facility] 00:00:00 [code = CT Colonography [facility] (combo)] Future Scheduled 1948 Screening for malignant [facility] 00:00:00 neoplasm of colon Medical Ce nter (procedure) [code = 115476603] Future Scheduled 1948 Screening for malignant [facility] 00:00:00 neoplasm of colon Medical Ce nter (procedure) [code = 211048444] Future Scheduled 1948 DXA SCAN [code = DXA [facility] 00:00:00 SCAN] [facility] Future Scheduled 1948 Screening for malignant [facility] 00:00:00 neoplasm of colon Medical Ce nter (procedure) [code = 908423449] Future Scheduled 1948 Screening for malignant [facility] 00:00:00 neoplasm of colon Medical Ce nter (procedure) [code = 327329923] Future Scheduled 1948 Sigmoidoscopy [code = [facility] 00:[facility] S[facility]oidoscopy] [facility] Future Scheduled 1948 Screening for malignant [facility] 00:00:00 neoplasm of breast Medical C enter (procedure) [code = 131286913] Future Scheduled 1948 CT Colonography (combo) [facility] 00:00:00 [code = CT Colonography [facility] (combo)] Future Scheduled 1948 Screening for malignant [facility] 00:00:00 neoplasm of colon Medical Ce nter (procedure) [code = 766958703] Future Scheduled 1948 Screening for malignant [facility] 00:00:00 neoplasm of colon Medical Ce nter (procedure) [code = 504029423] Future Scheduled 1948 DXA SCAN [code = DXA [facility] 00:00:00 SCAN] [facility] Future Scheduled 1948 Screening for malignant [facility] 00:00:00 neoplasm of colon Medical Ce nter (procedure) [code = 246288242] Future Scheduled 1948 Screening for malignant [facility] 00:00:00 neoplasm of colon Medical Ce nter (procedure) [code = 907869055] Future Scheduled 1948 Sigmoidoscopy [facility]code = [facility] 1948 Screening for malignant [facility] 00:00:00 neoplasm of breast Medical C enter (procedure) [code = 567551422] Future Scheduled 1948 CT Colonography (combo) [facility] 00:00:00 [code = CT Colonography [facility] (combo)] Future Scheduled 1948 Screening for malignant [facility] 00:00:00 neoplasm of colon Medical Ce nter (procedure) [code = 662422062] Future Scheduled 1948 Screening for malignant [facility] 00:00:00 neoplasm of colon Medical Ce nter (procedure) [code = 083679691] Future Scheduled 1948 DXA SCAN [code = DXA [facility] 00:00:00 SCAN] [facility] Future Scheduled 1948 Screening for malignant [facility] 00:00:00 neoplasm of colon Medical Ce nter (procedure) [code = 775854346] Future Scheduled 1948 Screening for malignant [facility] 00:00:00 neoplasm of colon Medical Ce nter (procedure) [code = 057783170] Future Scheduled 1948 Sigmoidoscopy [code = [facility]] [facility] Future Scheduled 1948 Screening for malignant [facility] 00:00:00 neoplasm of breast Medical C enter (procedure) [code = 885631363] Future Scheduled 1948 CT Colonography (combo) [facility] 00:00:00 [code = CT Colonography [facility] (combo)] Future Scheduled 1948 Screening for malignant [facility] 00:00:00 neoplasm of colon Medical Ce nter (procedure) [code = 217727127] Future Scheduled 1948 Screening for malignant [facility] 00:00:00 neoplasm of colon Medical Ce nter (procedure) [code = 562549996] Future Scheduled 1948 DXA SCAN [code = DXA [facility] 00:00:00 SCAN] [facility] Future Scheduled 1948 Screening for malignant [facility] 00:00:00 neoplasm of colon Medical Ce nter (procedure) [code = 889734532] Future Scheduled 1948 Screening for malignant [facility] 00:00:00 neoplasm of colon Medical Ce nter (procedure) [code = 375180187] Future Scheduled 1948 Sigmoidoscopy [code = [facility] 00:[facility] S[facility]oidoscopy] [facility] Future Scheduled 1948 Screening for malignant [facility] 00:00:00 neoplasm of breast Medical C enter (procedure) [code = 899599074] Future Scheduled 1948 CT Colonography (combo) [facility] 00:00:00 [code = CT Colonography [facility] (combo)] Future Scheduled 1948 Screening for malignant [facility] 00:00:00 neoplasm of colon Medical Ce nter (procedure) [code = 287734397] Future Scheduled 1948 Screening for malignant [facility] 00:00:00 neoplasm of colon Medical Ce nter (procedure) [code = 059697799] Future Scheduled 1948 DXA SCAN [code = DXA [facility] 00:00:00 SCAN] [facility] Future Scheduled 1948 Screening for malignant [facility] 00:00:00 neoplasm of colon Medical Ce nter (procedure) [code = 470967902] Future Scheduled 1948 Screening for malignant [facility] 00:00:00 neoplasm of colon Medical Ce nter (procedure) [code = 499888151] Future Scheduled 1948 Sigmoidoscopy [code = [facility]code [facility] 00:[facility] Future Scheduled 1948 Screening for malignant [facility] 00:00:00 neoplasm of breast Medical C enter (procedure) [code = 676935536] Future Scheduled 1948 CT Colonography (combo) [facility] 00[facility]00:00 [code = CT Colonography [facility] (combo)] Future Scheduled 1948 Screening for malignant [facility] 00:00:00 neoplasm of colon Medical Ce nter (procedure) [code = 875685668] Future Scheduled 1948 Screening for malignant [facility] 00:00:00 neoplasm of colon Medical Ce nter (procedure) [code = 598422197] Future Scheduled 1948 DXA SCAN [code = DXA [facility] 00:00:00 SCAN] [facility] Future Scheduled 1948 Screening for malignant [facility] 00:00:00 neoplasm of colon Medical Ce nter (procedure) [code = 841894396] Future Scheduled 1948 Screening for malignant [facility] 00:00:00 neoplasm of colon Medical Ce nter (procedure) [code = 353500343] Future Scheduled 1948 Screening for malignant [facility] 00:00:00 neoplasm of breast Medical C enter (procedure) [code = 485014806] Future Scheduled 1948 CT Colonography (combo) [facility] 00:00:00 [code = CT Colonography [facility] (combo)] Future Scheduled 1948 Screening for malignant [facility] 00:00:00 neoplasm of colon Medical Ce nter (procedure) [code = 393930585] Future Scheduled 1948 Screening for malignant [facility] 00:00:00 neoplasm of colon Medical Ce nter (procedure) [code = 909368785] Future Scheduled 1948 DXA SCAN [code = DXA [facility] 00:00:00 SCAN] [facility] Future Scheduled 1948 Screening for malignant [facility] 00:00:00 neoplasm of colon Medical Ce nter (procedure) [code = 144767145] Future Scheduled 1948 Screening for malignant [facility] 00:00:00 neoplasm of colon Medical Ce nter (procedure) [code = 628221983] Future Scheduled 1948 Sigmoidoscopy [code = [facility] 1948 Screening for malignant [facility] 00:00:00 neoplasm of colon Medical Ce nter (procedure) [code = 221128232] Future Scheduled 1948 Screening for malignant [facility] 00:00:00 neoplasm of breast Medical C enter (procedure) [code = 066095093] Future Scheduled 1948 CT Colonography (combo) [facility] 00:00:00 [code = CT Colonography [facility] (combo)] Future Scheduled 1948 Screening for malignant [facility] 00:00:00 neoplasm of colon Medical Ce nter (procedure) [code = 414845728] Future Scheduled 1948 Screening for malignant [facility] 00:00:00 neoplasm of colon Medical Ce nter (procedure) [code = 485851319] Future Scheduled 1948 DXA SCAN [code = DXA [facility] 00:00:00 SCAN] [facility] Future Scheduled 1948 Screening for malignant [facility] 00:00:00 neoplasm of colon Medical Ce nter (procedure) [code = 978628467] Future Scheduled 1948 Sigmoidoscopy [code = [facility] 1948 Screening for malignant [facility] 00:00:00 neoplasm of colon Medical Ce nter (procedure) [code = 912284448] Future Scheduled 1948 Sigmoidoscopy [code = [facility] 00:[facility]uled 1948 Screening for malignant [facility] 00:00:00 neoplasm of breast Medical C enter (procedure) [code = 760741892] Future Scheduled 1948 CT Colonography (combo) [facility] 00:00:00 [code = CT Colonography [facility] (combo)] Future Scheduled 1948 Screening for malignant [facility] 00:00:00 neoplasm of colon Medical Ce nter (procedure) [code = 586020286] Future Scheduled 1948 Screening for malignant [facility] 00:00:00 neoplasm of colon Medical Ce nter (procedure) [code = 841511742] Future Scheduled 1948 DXA SCAN [code = DXA [facility] 00:00:00 SCAN] [facility] Future Scheduled 1948 Screening for malignant [facility] 00:00:00 neoplasm of colon Medical Ce nter (procedure) [code = 591980233] Future Scheduled 1948 Screening for malignant [facility] 00:00:00 neoplasm of colon Medical Ce nter (procedure) [code = 174602526] Future Scheduled 1948 Sigmoidoscopy [code = [facility] 00:00:[facility] S[facility]oidoscopy] [facility] Future Scheduled 1948 Screening for malignant [facility] 00:00:00 neoplasm of breast Medical C enter (procedure) [code = 322152493] Future Scheduled 1948 CT Colonography (combo) [facility] 00:00:00 [code = CT Colonography [facility] (combo)] Future Scheduled 1948 Screening for malignant [facility] 00:00:00 neoplasm of colon Medical Ce nter (procedure) [code = 428150259] Future Scheduled 1948 Screening for malignant [facility] 00:00:00 neoplasm of colon Medical Ce nter (procedure) [code = 268622453] Future Scheduled 1948 Screening for malignant [facility] 00:00:00 neoplasm of breast Medical C enter (procedure) [code = 419187030] Future Scheduled 1948 DXA SCAN [code = DXA [facility] 00:00:00 SCAN] [facility] Future Scheduled 1948 Screening for malignant [facility] 00:00:00 neoplasm of colon Medical Ce nter (procedure) [code = 368020521] Future Scheduled 1948 Screening for malignant [facility] 00:00:00 neoplasm of colon Medical Ce nter (procedure) [code = 062844309] Future Scheduled 1948 Sigmoidoscopy [code = [facility] 00:[facility]] [facility] Future Scheduled 1948 CT Colonography (combo) [facility] 00:00:00 [code = CT Colonography [facility] (combo)] Future Scheduled 1948 Screening for malignant [facility] 00:00:00 neoplasm of breast Medical C enter (procedure) [code = 757961444] Future Scheduled 1948 CT Colonography (combo) [facility] 00:00:00 [code = CT Colonography [facility] (combo)] Future Scheduled 1948 Screening for malignant [facility] 00:00:00 neoplasm of colon Medical Ce nter (procedure) [code = 049207189] Future Scheduled 1948 Screening for malignant [facility] 00:00:00 neoplasm of colon Medical Ce nter (procedure) [code = 215330733] Future Scheduled 1948 DXA SCAN [code = DXA [facility] 00:00:00 SCAN] [facility] Future Scheduled 1948 Screening for malignant [facility] 00:00:00 neoplasm of colon Medical Ce nter (procedure) [code = 313136358] Future Scheduled 1948 Screening for malignant [facility] 00:00:00 neoplasm of colon Medical Ce nter (procedure) [code = 332753329] Future Scheduled 1948 Screening for malignant [facility] 00:00:00 neoplasm of colon Medical Ce nter (procedure) [code = 608880802] Future Scheduled 1948 Sigmoidoscopy [facility]code = [facility]] Medical Cent[facility] Future Scheduled 1948 Screening for malignant [facility] 00:00:00 neoplasm of colon Medical Ce nter (procedure) [code = 649098393] Future Scheduled 1948 Screening for malignant [facility] 00:00:00 neoplasm of breast Medical C enter (procedure) [code = 058018283] Future Scheduled 1948 CT Colonography (combo) [facility] 00:00:00 [code = CT Colonography [facility] (combo)] Future Scheduled 1948 Screening for malignant [facility] 00:00:00 neoplasm of colon Medical Ce nter (procedure) [code = 687080010] Future Scheduled 1948 Screening for malignant [facility] 00:00:00 neoplasm of colon Medical Ce nter (procedure) [code = 461531935] Future Scheduled 1948 DXA SCAN [code = DXA [facility] 00:00:00 SCAN] [facility] Future Scheduled 1948 Screening for malignant [facility] 00:00:00 neoplasm of colon Medical Ce nter (procedure) [code = 946524369] Future Scheduled 1948 Screening for malignant [facility] 00:00:00 neoplasm of colon Medical Ce nter (procedure) [code = 685847517] Future Scheduled 1948 Sigmoidoscopy [code = [facility] 00:[facility] Sigmoidoscopy] [facility] Future Scheduled 1948 DXA SCAN [code = DXA [facility] 00:00:00 SCAN] [facility] Future Scheduled 1948 Screening for malignant [facility] 00:00:00 neoplasm of breast Medical C enter (procedure) [code = 794991375] Future Scheduled 1948 CT Colonography (combo) [facility] 00:00:00 [code = CT Colonography [facility] (combo)] Future Scheduled 1948 Screening for malignant [facility] 00:00:00 neoplasm of colon Medical Ce nter (procedure) [code = 472496551] Future Scheduled 1948 Screening for malignant [facility] 00:00:00 neoplasm of colon Medical Ce nter (procedure) [code = 856257389] Future Scheduled 1948 Screening for malignant [facility] 00:00:00 neoplasm of colon Medical Ce nter (procedure) [code = 761494375] Future Scheduled 1948 DXA SCAN [code = DXA [facility] 00:00:00 SCAN] Medical Center Future Scheduled 1948 Screening for malignant [facility] 00:00:00 neoplasm of colon Medical Ce nter (procedure) [code = 176514967] Future Scheduled 1948 Screening for malignant [facility] 00:00:00 neoplasm of colon Medical Ce nter (procedure) [code = 750620088] Future Scheduled 1948 Sigmoidoscopy [code = [facility] 00:[facility] Sigmoidoscopy] Medical Cente r Encounters Start End Encounter Admission Attending Care Care Encounter Source Date/Time Date/Time Type Type Clinicians Facility Department ID 2022-04-06 [facility] [id number] [facility] 16:46:00 Encounter [facility] 2021-06-21 Inpatient ER ADIO, SLE Gastro [id number] SLE 02:39:12 TITIL[place]A 2023-03-02 2023-03-02 Orders Doctor HEAVEN 1.2.840.114 [id number] Univers 00:00:00 00:00:00 Only Unassigned, ARIS 350.1.13.10 ity of [place] [facility] 4.2.7.2.686 Arnie as [phone] [address] 2023-01-05 2023-01-05 Orders Doctor HEAVEN 1.2.840.114 [id number] Univers 00:00:00 00:00:00 Only Unassigned, ARIS 350.1.13.10 ity of [place] [facility] 4.2.7.2.686 Arnie as [phone] [address] 2022-10-27 2022-10-27 Outpatient Sendy RAO [facility] [id number] Univers 14:45:00 14:45:00 BALDOMERO reynolds [facility] 2022-10-21 2022-10-21 Outpatient Sendy RAO TNCOLBY [facility] [id number] Univers 09:45:00 10:16:42 BALDOMERO reynolds [facility] 2022-10-21 2022-10-21 Office Maira TNCOLBY [id number] Univers 09:45:00 10:16:42 Visit Baldomero ANGLIN 350.1.13.10 it y of [place] 4.2.7.2.686 Arnie as DERIK?BLEA [phone] Mt jermaine JOHNSON [address] [facility] OFFICE [facility] 2022-10-13 2022-10-13 Outpatient [facility] [id number] Univers 15:30:00 15:30:00 BALDOMERO ity of [facility] 2022-10-11 2022-10-11 [facility] 1.2.840.114 [id number] Univers 00:00:00 00:00:00 Baldomero ANGLIN 350.1.13.10 it y of [place] 4.2.7.2.686 Arnie as DERIK?BLEA [phone] Mt jermaine JOHNSON 198 [facility] OFFICE [facility] 2022-10-08 2022-10-08 [facility] 1.2.840.114 [id number] Univers 00:00:00 00:00:00 Baldomero ANGLIN 350.1.13.10 it y of [place] 4.2.7.2.686 Arnie as DERIK?BLEA [phone] Mt jermaine JOHNSON 198 [facility] OFFICE [facility] 2022-10-06 2022-10-06 [facility]phone [facility] 1.2.840.114 [id number] Univers 00:00:00 00:00:00 Baldomero ANGLIN 350.1.13.10 it y of [place] 4.2.7.2.686 Arnie as DERIK?BLEA [phone] Mt jermaine JOHNSON 198 [facility] OFFICE [facility] 2022-10-04 2022-10-04 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 1.2.840.1 [id number] Univers 15:15:00 15:30:00 Visit Baldomero Rao 350.1.13.10 ity of [place] 4.2.7.2.686 Arnie as DERIK?BLEA [phone] Mt jermaine JOHNSON 353 [facility] OFFICE [facility] 2022-10-04 2022-10-04 Outpatient R [facility] [id number] Univers 14:30:00 15:22:10 BALDOMERO ity of [facility] 2022-10-04 2022-10-[address] [facility] [id number] Univers 14:30:00 15:22:10 Visit Baldomero ANGLIN 350.1.13.10 it y of [place] 4.2.7.2.686 Arnie as DERIK?BLEA [id number] Mt debiangelito JOHNSON [address] [place] [facility] 2022-10-04 2022-10-04 Orders Doctor HEAVEN 1.2.840.114 [id number] Univers 00:00:00 00:00:00 Only Unassigned, ARIS 350.1.13.10 ity of [place] [facility] 4.2.7.2.686 Arnie as [phone] [address] 2022-10-01 2022-10-[address] [facility] 1.2.840.114 10 [id number] Univers 00:00:00 00:00:00 Baldomero ANGLIN 350.1.13.10 it y of [place] 4.2.7.2.686 Arnie as DERKI?BLEA [phone] Mt deibangelito [facility] 0[address] [facility] OFFICE [facility] 2022-09-28 2022-09-28 Orders Doctor HEAVEN 1.2.840.114 [id number] Univers 00:00:00 00:00:00 Only Unassigned, ARIS 350.1.13.10 ity of [place] [facility] 4.2.7.2.686 Arnie as [phone] [address] 2022-04-06 2022-04-13 [facility] Surgery [id number] [facility] 16:50:00 19:40:00 [facility] 2022-04-06 2022-04-13 Hospital ER Jessica Boone [facility] [id number] 16:50:00 19:40:00 Encounter Rosa Isela Ching [facility] 2022-04-07 2022-04-07 Anesthesia Eryn [facility] [id number] 12:31:00 16:21:00 Event Lili Patel [facility] 2022-04-07 2022-04-07 Surgery Greg, [facility] [id number] 12:00:00 14:51:00 Heaven Carbajal [facility] 2022-04-07 2022-04-07 Travel [facility] [id number] [facility] 00:[facility]:00 00:00:00 [facility] 2021-07-24 2021-07-24 Emergency X , [facility] ERT [id number] Univers 10:12:00 14:31:00 GLENN tashawolf [facility] 2021-07-24 2021-07-24 Emergency [facility] [id number] Univers 10:12:00 14:31:00 Glenn VALADEZSHIRA 350.1.13.10 i ty [facility] 4.2.7.2.686 [facility] [phone] [place] [address] [place] 2021-05-04 2021-05-07 Hospital ER Cherie Faustin [facility] [id number] 17:37:00 10:59:[address] [facility] 2021-05-06 2021-05-06 Anesthesia Denise Quispe [facility] [id number] 15:10:00 16:27:00 Event Jm Rushing [facility] 2021-05-06 2021-05-06 Surgery Nikita, [facility] [id number] 13:00:00 14:30:00 Juan Alberto [facility] 2021-05-05 2021-05-05 Travel [facility] [id number] [facility] 00:00:00 00:00:00 [facility] 2021-05-04 2021-05-04 Emergency ER [facility] Emergency [id number] [facility] 17:24:00 17:24:00 2021-05-04 2021-05-04 Orders [facility] [id number] 00:00:00 00:00:00 Only [facility] 2021-05-04 2021-05-04 Travel [facility] [id number] [facility] 00:[facility]:00 00:00:00 [facility] 2021-05-01 2021-05-01 Emergency E EVANGELINA, MHBL MHBL [id number] [facility]BL 16:21:00 22:56:00 [facility] 2021-03-13 2021-03-13 Telephone Ezequiel [facility] [id number] 00:00:00 00:00:00 Tyesha Mojica [facility] 2021-03-08 2021-03-11 Hospital Paola Marcum [facility] [id number] [facility] [facility] St 23:13:00 11:35:00 [address] [facility] 2021-03-10 2021-03-10 Surgery Kathy [facility] [id number] [facility] [facility] St 11:00:00 12:30:00 [facility] 2021-03-10 2021-03-10 Anesthesia Josef [facility] [id number] 11:36:00 12:27:00 Event Graciela jessica [facility] [place] 2018-02-01 2018-02-01 AppointBRENDAN [facility] [id number] [place] 08:00:00 08:00:00 t; HOLLIE ACUÑA Phy sici CHRISTINA, M.D. ans M.D. Results Test Description Test Time Test Comments Results Result Comments Source Tissue Exam 2022-04-14 16:40:15 Test Item Value Reference Range Interpretation Comme nts Case Report (test code = 104) Surgical Pathology Report Case: [id number] Authorizing Provider: Heaven Garza MD Collected: 04/07/2022 03:36 PM Ordering Location: [facility] Received: 04/07/2022 04:23 PM SERVICES Pathologist: Omari Lora MD Specimen: Femoral Head, Right Hip DIAGNOSIS (test code = 3220) j9dupXZoBFWjt7aoNPKneUEySeTnVpHvKhCpOy pc dWMxIHtccnRmMVxlcGljOTYwMlxhbnNpXHNwbHRw Z7EqctypGCdmQL1lBR6pbNpyhPUipHZdZJLiBgHq y6nce009yWQur7zzGGQPbugwvKk0qPmkJ57qt0V4 GwtaT12ccGTiBDI3OYKsRCUlpDUsFUNoKVB8OWSl iGIeZ6gnYODsZS3gborsPJcjBTyyAMAyiPG3MLBa mVLlB3VsUOXpUDnaAVKfiif2DjDuDb7mrLMaqLvl PYhcCLYaIHHuTQrbBHLbMsCeFq6FDMivRojYJNGz YsWMG6JYKUCBEFKGJICCBzTQUi6PUOUFCXpvkEYs ADOoPIIUZpnGFtpyTM9GNZuMFL2XDgpEO9KaXENX ZVTCZHTHGXJNSQEZGKLDXlJQLWMHURZDSS8OVPCz F22TW7jKHSJHAFOEHQUBOMqQE4CBWoifP5PnJwHI H0BONtEkfOKrBQKdJIFHVtIIRNiIF23TNyTNGIAM TF1kyQBykIhbkqXcWBwew8IeWDidEBFePH3qqQsw LMPyQG4bUOLaN6zgfD7bojj0JxNeXNUiWrY2MBYl guW0Bsw5GJSsYGiiv6gxi0XaSRBaSNq9uHxiLbMj KWWkg5wtwvHqXjBcGQNuDCCwKEAatYWxG865j6st t6oxfpFfiZP7AYRmZIQ8GWuhwgOfyqD2RBvrdLHx GqB3QTfbyhSjWUpjdhHfkgYnIgz9VZBxE729SED0 iFpll3whPBS0IVOsRCAaHoXyCv9taEMqG187KXYw WDGCYASwcHo9JKIidlZxgoDekDOXj906Y319p6dm URYcxxNchCoYfqcjd6xlW162YPAkfLVamiFxDlMn PHBdzMYeiJK3ACKzZY4gahvzFNxdGXwgBCWikeJ5 UEQgtEYsV8GcQJUlCX0epsjvPHJ0DMijNKUgMQT3 RmVvGISdu0Vzilt6LqIjmy2qaa09ZJN9m6BrqOkb JKB7KHR9OlBnOq7vaBFdCNIuPV5aQsXhxKPmBASh di94lXhbYHxsSFQ1DUGioiIwr8Tsx9fgSkTnkaSb W6bkM4MqCAYxBTBuAFDzQvTozzIjf2Jwv0YgeCXr fJl1f7kdRKDbVKLvrCpqs9mlCVD2RPKmeCPwR3mm mB7eWOHmCT1auvgma5ocYOkeYEloJAUdoWP9arN1 SJKfeZKeY1PbyZ7nWPWgYDwoHSPczpw1YfNiZj5s dGVyeTcyMFxzYmtwYWdlXHBnbmNvbnRccGduZGVj XHBsYWluXHBsYWluXGYwXGZzMjRccWxcbGFuZzEw YuSwtGzgxZkxRZsgFdFoNRGhFJjaJ6xrZkHuGzTj Cls6FXOrcAWdORRsTrg5UCOwfZWaWOJJjHkuwS7h HGTsxCqgvS0lvEI8WRQsshQpzMJXgO7sWPDWbM8x JcS7HpVsOcG6MSi4PbHrtTLdmN8= CPT Code(s) (test code = 3357) o1ntaMHkDBQsoIX8TeXwXJMiz8lvp2MdkOIi cGFy JGdpdCCjvaHmtw66sRN3yA85JZ3eSQEqDmK7MUMk liA7Wjv1MQAnQUHcfLKgN516a3iat5ripjXebJU4 oDmzWEUobbxoPuA7LQdmUNCgowlcLJl4JCeeKPVs jEL4LQRrwZZzS6FnJXCnKT7oyie0ZMI9YGjoMTXd OjM0EQIykDTgUXWsoFegFClec512ISF2XzYtKXHv vsXqiHskjH9nNkMnEUN6ELNsIHgcBCjbTWRuaMGq fQ== CLINICAL HISTORY (test code = 3356) j5ikiTEhCHVgqWC1YkYzSAYyo1wlg2X sdHBncGFy RKhxrOEanmGcwh62fPR6bZ91GL7aRHUqMmA8TDIm suB5Jdv3QRHpNLBvkNPdQ230w4ioj9syebSbwMR6 BASfINFaH0RjWW8uCQOafOOcK86roYVbXZQ1NSVp MQXxoLEmHIMkNUA9ILDtbJMaT8wrZWLlBF5zgvxi XIxuCUmkURQcwZH9CBYetDSuF1TxDCRnQEkvLIGf xts6GiQqZk2dxIVqoDprAFofIGGiRHNkDVlqgGXf jleatmCpGCDfWUPXWMoGVEGAUCBmFdIVH5KIMjUb cGFyfQ== SPECIMEN SOURCE (test code = 3377) c7yyjQHrGHKljSB2FzCpGNSqf5bef5Yo dHBncGFy JJktaABhpjVjgo04cPU9lR16OP0mOKXyTeL2QESa gbJ3Nle0CUKcOFNoaNFnN596w2blg2squlIsnQW1 dJybDXFuhtiuOsU1ULjpDYPlgshbKTz9GDxgPWWc kEJ5DCEvoCDuE5XoAMZaAI8rost4TIC3JZfdKSOv RbH3BCTrjAZqAQRjgPyzHMvgt685ZMW2EsYwYNCd suQdyBxbeL8cQfFpSRYWRtMRLN2nijUsJJisGGBr WWHpO5s0CGbkqK4nkSPdlR== GROSS DESCRIPTION (test code = v9duvBYeRZHfiJG6BjFbPNOry3api4LkuIMq cGFy [id number]) KYdsvTWzfqKagg83fPB4zV41NT5xOWBeLoA9RRDq ldS2Jsi0NWEdUMTfyGJnA062e2tho1cmuxEgpJP9 AQJlOKMtY2IeGL8pGPDovAVoM75zlUSbVME7GGDu FVJejMRqBLLhZGT3FBBzcFInR2jcCCMvUJ9hikrx XJjtSDoeQEXvpSP4QFGyoBNmZ3SbAWOkULqxGEYt lwd5SkZlRe0fkHElsKqmNFajEDBbh0lpCQDmiIBr QMO2MGhgcDFqSDDgHCFaQWf1QPMxIAvdsIKiQZ2h uGwxFdmtmNazi8HptKLvYPwoOXRoRCQpMKzrPFWb I2VYLMBgCbf1KHqxQrPvMSy2YAwrU5GDLWFdREM1 AZW4FXBkUnD2KKv0BGABXe4aADn0KdX7SwT2GVH1 ZlR7SCgcwJYvDOyiOoyqKNzhWJJpaNItZBzgamW2 ILGwKZnmCTErAwFiAX3yGiFoo5YkwXLDQLVkGLUL aWdodCBIaXAuXHBhclxmczIwXGNmMSBSZWNlaXZl ZCBmcmVzaCBsYWJlbGVkIHdpdGggdGhlIHBhdGll uwTvgcOmKU5bFKCrH9Pyx7Ues45mjxAmPkEaYXVx HSSmesygxJKifAknITNhkW8rXGwypVEsJVHtdNQj MKA2NhGfoYH6BoThoMAmRxZeA91zYpQry8CrhSCa RRBaALuxnHozZVOvFKerQFEbTEqbgO6lqdqsR0bm KRP6hymsC3ReDE9fvhmlkw1uFFOaZJIwzfJsZ4Kh CIYtv2HfNaEhLDUwglYmuB2svKbyvC3uMhfhZCn5 QHigPN81qJAcMrDdMOycIKL6gRGnuMWoRGWqFRol CBSajp33KGucr8dpDIDoYbB2r7WcwFRdST8lkuMn DKpwBtSszCY8kWHngMIuF7nlBMA4huXcXNF6yRL8 EREcNG8tRXFxee0iJESUCCWhROSqgeJwyXf1JJNw NJM4cQ4fbsKadtYne2RpoLa5tPTiRRouTHTeSFAp KDGccXatd8cnMaGyTCEttBRpBjnnOASnw28bIGig hDghzZadAT8qrpipzpQozpTCJB2nlKvnPLwcxY0o EIXhmILiEGJtI8KmiTyajkiyNZNmMIlLUJgSW7VE WMqeHGGuM8XmE7HpzbB0k9rjkJfjf7BulVGiUS9v cGFyfQ== MICROSCOPIC DESCRIPTION (test code = n0femFCbCPFinCK3LaGoJXZrs5iab3 BsdHBncy 3372) QVsyeVMnjnAgnr97fQE1uH43CM9qOBYgXmQ9SLYo zjN9Gtz7UGEsGXHreQNuW646x2swk5xupsWnmGM6 zJgrSPVkxfakBqM0ZRokPZPmtyyhSAf1KGxtFMCc uYO4SKKqdJQnH6ApMATdQY3qdjm8VCK8RMbtEMCo UnR3TPIdpPCmNAJlcCmyAFqsb942ILM7JiDjSSPv brInwVmfmN3mQbDtZXNDKAFpo8EbJQZqUBWmch1= Gross assessment was performed at (test [facility] enter, code = 2777) Department of Pathology, [address] [place] [address] 5[address], Technical component was performed at [facility] er, (test code = 2778) Department of Pathology, [address] [place] [address] 11574, Professional component was performed at [facility] enter, (test code = 2779) Department of Pathology, [address] [place] [address], [facility]3810[facility]17 16:40:15 Test Item Value Reference Range Interpretation Comments Case Report (test code Surgical Pathology = 104) Report Case: [id number] Authorizing Provider: Heaven Garza MD Collected: 04/07/2022 03:36 PM Ordering Location: [facility] Received: 04/07/2022 04:23 PM SERVICES Pathologist: Omari Lora MD Specimen: Femoral Head, Right Hip DIAGNOSIS (test code = m0vynATxKJBum7vaZXOpoTH 3220) uZzEwMzNcZnRuYmpcdWMxIH tccnRmMVxlcGljOTYwMlxhb eJlXIXdaEKjC0BeolfzKNlu PX0iPW3wvDffkSTrjARdYZV mNvKec7aqi075dLHtc2deWC LJlsbhpRj9pQcgM67kb5G8B vmsH90evUNlVJE3BFLyQSCi vONaZMIsRJW4VAPlvHOeI1f nCNLyPJ7twjuiTLfnZRdgUB AlbIR6URWmrZQxP2GtNGGgH OchECLshhb7FfJmHo3wwXWx eTcyMFxwYXJkXHBsYWluXGZ lGoShMo1FEQcoSvvECPYaZa VYW7IAZWMICBHFRNMSMwZIZ o9KOBFBSGsogWTgMXHjDDQZ EqbJFqjkFV8HNCmLOE6IDcx GZ5UdQLBIPSWECSEACCCQXP IDEPKXGyGVJBEGVPGFQI6ST KNgU93UU5rZYLOEGPDWNGLF WBfBG1ERZmnzF2NsIvZQU0A VUkVccGFyICAgLSBOTyBNQU eZV51CHdJKBPMLFM9hqUBpm MnxwjWgKPqcq8BkDMxqWYDo JF9unPgxJJEfHN5mSSVuW5b dpV2jmkn4XvFrVYWmFuB2RT MaogQ4Law7YDAzZJyzb9dmx 8PvKBUqUSw1yBgyAeNqBXPo c1eziiQiLkPfTFZhMUDvEUS nuJDrE700w2doa3pvodDzqY K7QIQfYOY9UXtxzuXtbyJ5I DmffBHbDmS6RHiptjVwTZct axXtfrMkXyf8QEXgF823FXD 4pVmcc0qwXBW5VWVmXQLtFm NjEf5duKDuJ055TPIjAFBQJ WBtzPw1RSPiskRpckJfpUSP w529A066o9ecTKXvmlMstYz Xwlrsr9vuA090QSQitHMial EvWxDzBNSagBMfkIM4PAMxZ S8ryuhdQKyuIUciXOJzjpL1 UEOcxEPmU3MkFUPiYC1xgdc pQEU1URokFTUrIDT4FfPyOP Ssb8Xzyyz3BmRitg2cue07P PY1j4DsbTvzNHN5DOA8FiQa Mv2jyJYeYUBnQX4xObTceZA zBXJjvr07sQqzEVwlRZD8TW OzyiXlm3Xen9qxZjVfikTdX 0boM4FqBDCbOBHlIRAfBbHy fyEou2Mnc2KzaZQwhSc3x0a nEHGeAMPbbCxxc0tnLNJ8KS BrkJEdL8ghaU7tLWBqMI2wt frym4dnBBsaHGzrCPVisFK3 abH4QBEzgRJfB5OxaV9zCNX dFMkoIJOxsik2IpXnLz1ieG VyeTcyMFxzYmtwYWdlXHBnb mNvbnRccGduZGVjXHBsYWlu XHBsYWluXGYwXGZzMjRccWx cbGFuZzEwMzNcaGljaFxmMV trJjUsWOTaIIngA5fwJvDvF eLpEcu3HROwyIMoXCHzTae8 HFCkiPQqIQQTbQnlmM4bEVK erCvqwL9enLT5ETEmykLkiD WHhP9qDCADsC9oMdR8XkViE wC4PBq7YvKmqSAioM5= CPT Code(s) (test code z6ljtREePPDnoKS6CjKdENA = 3357) cn7ijh9ZtdBBggAYmADmdhW BbfsXgow00pLJ7eJ98EA7mN RZvDjG1RFLjcbI1Pag9KEZz AFLsfXSqS015u6ddy1amgwD akXX4uNusCYMjbmtjJmO5UK ooNRGuqojrHUj0ZJjtOFDts FK3MQBkpUAzD7WfMCMdLI3r prx7KNN6PJtdGBMpGoJ2WTF saDHfNWNwvKphVUqlo204YR G5GrEqCWWataHvjIsaeK4iO aVoFUQ3MKIvIFulPGfhRYQx cGFyfQ== CLINICAL HISTORY (test n3ihpUPbTQVcyLD7RkSaIYO code = 3356) of6xfq0OcxOQatXQgECzzkB SwdlIevm10kWK0sK06GX8cF QHnLoI6SJXbmtT6Avj6SWQn FJDyhKJqJ777a4enz7whjcC uwNE6EGGcWSIwX4ZcRO5cWE MukBZnS16xmBXeSCH5IBIaR XJvmIMoHTVoEUX6YXGrtBNh N4eqVTVcWG7zjjgtRAczCLm bKYAyuVE5UPOksVYhG0FgSQ PySOrbFTKfhjy8JnIqHk0ca GVyeTcyMFxwYXJkXHJpMVxw bGFpblxmczIwXGNmMSBSSUd PRLNWEVCiNxCYY7XFKwHucJ FyfQ== SPECIMEN SOURCE (test f0ljePNmAXJzdKG9QmUqASY code = 3377) lr5skk0OwyAMzaJItWDrdyS MrtbBbch53zSE9bQ19HU9bL WBmIqG1MPEpcqY5Xpb6BIQm LEFdvAQtM285y5seo5rlkzV ncRM1pRzvHQKmvjjkEpH8HW kaTBDlhiucLTf9DKerUZYoq WQ4GNTypXTgZ2FqAQSbTU1f okq0ULL4KBusVISjQkW6LJU etELqNNNutXkqJLyyd379LZ Q6RaFsHBEkuiTobLzhaZ2eN bUfIJSKNkFZHA7tcvGmHBki PUZhRWMhG0r2BJkdbB7foFE yfQ== GROSS DESCRIPTION c5cbrHMkOITteAG1VtAtZYI (test code = nz4lya8RrnKFmsFDxNJideJ [id number]) IsfbSjdy97kHB5yT44ZH3fT PDxVoM8LNZqheW5Lpj0TKBx TYWovYRkR160x0eco0ianlX wfWA0WZPhTUEsX8TvZQ4nUG ZazTCaF95paODsLPQ2OCKuS OOdeUZtOGDvTFE1ARDdeUYw E5riBZYoFW5ubsksDEirIBq wYCHsmUX8BJGlnWSxL3NjRI FwPDpfEZXwlxg9LxGgMv7kw NFocZhyFEbsHGLhz6aeUZIf wXMmQJU2SWtkmAZsYNOjQUV yWHk1PDEeBOafxEGmSO4raU ypEzsyxHpqe6PseCOoEOkzB OSyXLYgJDkjBTGlC6XIXXEq Qqc1OXrdLfOfUGn9EJlsS8T ZVKXzUUT4TZX7QHCfGcS7JY a2RSYDXx8cTTy2OzI6GyG8D HP1ZiE1FJrzgAJlVOgqIyuu XFqtSHGpcYIzQPoouiI6NFJ qVWazZJQbBfJfZI8sMeIcn0 JhbCBIZWFkLCBSaWdodCBIa XAuXHBhclxmczIwXGNmMSBS ZWNlaXZlZCBmcmVzaCBsYWJ lbGVkIHdpdGggdGhlIHBhdG stuaOvkqRlLC1xHEDfD0Upo 7Aql07rfsXhMtUyXAIoPVKj czpgnDGcyAwxKRJwxL5oYIa adKHeAMMmqYYxJAU4NpGqdB T1CcVsrEWcNvZfT85gSkRuv 3JhbCBoZWFkIHdpdGggYSBq MIvrWHAqFFyubA9stucpA5d aDFN7aewgJ7IrXA4zkmfzrd 5uGLBbTSTjqcWaG4NaBXVuy 8MtZkCqGKQlumBygR3plYwz aL5qPenpBEl0ZDqfRB62qMM dIbAlCPswZJZ3oPPomKYyTP OzHAvqYREmui28NRbxk1yvO MLvErK9f2GpiOJiFP8falUm PUwdFwZvyWK5tBGgmKNdD0x uEKK9usXyVPF1yLE9HIRbGC 5bGRBorj4tLTFJOMMlRDRvx aKanTc3WGVdLLI6xG2mjtDw ymTbb3OjoZm2jTPnRWnfYUK nRVNkICTpwGyht1tuJdGxRT XpjRJoIndzRURkw34hLEvzd LjlrJfnAI1owjuixkZqciTW PP4dqMeqUHmlgL3cNOKtqVE jOHXlG2PkaZovwzbjFOMyYV pMVPdHG7PQODklKECxT4UhZ 0VzwlU7f2hdhZror4QceLPg YP4laTQuqG== MICROSCOPIC i2eueYYfIJDdrAO1BfUwSUO DESCRIPTION (test code gz8qyz9GlcHZhvQAwAIeqmJ = 3371) StujRpom10hTQ7jP42PE6uZ EBzEiJ8HKDdwnB5Wjr1DVMv FTIdxAOvZ299c2xvg7vvsfQ muQA7tHslMZCymghxEzT6ZP lyULGlpwadBNc9BEmtJQNzv AL0NKKllRTrT2QpWXJlNP0z dvg4OED9XDliUTIvRcM0VYD ekPCoQRTlhThgYFage753QA G9VqVrXMEpmzIsqEabnP8kT yVvEMDACLEuu3OoOBDnSCLf cn0= Gross assessment was [facility] performed at ([facility], code = 2777) Department of Pathology, [address] [place] [id number], Technical component [facility] was performed at ([facility], code = 2778) Department of Pathology, [address] [place] [id number], Professional component [facility] was performed at ([facility], code = 2779) Department of Pathology, [address] [place] [id number], [id number] 16:40:15 Test Item Value Reference Range Interpretation Comments Case Report (test code Surgical Pathology = 104) Report Case: [id number] Authorizing Provider: Heaven Garza MD Collected: 04/07/2022 03:36 PM [facility]ing [facility] Received: 04/07/2022 04:23 PM SERVICES Pathologist: Omari Lora MD Specimen: Femoral Head, Right Hip DIAGNOSIS (test code = [id number] 3220) uZzEwMzNcZnRuYmpcdWMxIH tccnRmMVxlcGljOTYwMlxhb xFuLUTgsMFhR3BxcdtvTGep GA3gSB1owPjisLNkzMHhSAA wBtAhk2jyn287qSCjk2swXH RChiayiGp3eWymT47qg6X5L ipeR74vqMWdUVU1BEMgHQVf vAEtLPJmSXM4IKGowDAgN9t iKTJoRR2edupiLDorARefCC JyiLR0ZHXquUEiC1FnRPNwP FxpSTJpgft3OzZlIg3xhVQg eTcyMFxwYXJkXHBsYWluXGZ xXeSiNs3WEGttXwaYPDLqLv MRW0MRWOYCCDWRDNDJRlEYT n7WKTDALIssqAGwYPGcWXYF YoiCDqkkYD8BCFgPOI0GByk FM5BcYGKNYRQHWXMIFPZRUA JVKCRMXwDAELCYJDUNSA7ZA FYwH65WT2jSLDOLMEQYDMYN KLzFT1WKEkovW9QnSgRQT5B VUkVccGFyICAgLSBOTyBNQU yVS78SBlZJJLCNPZ2erKGme ZvaisPmOJcyg1IrSBkiRJTs KI0qgIvpLKDiLS0dXAXqF0a yfD5zwrv8MmJbCIGvGnL2ES LjawC2Ouw1MKSxZOhkl9ldg 3DqUIUxLRw2iWazIvUgAXPg e2rpstJrRdMtYTNtVYBkSLX ouWNlU712a5jwl2fvyjAlxB O2CLSvNWL4GSddgoGeffM1F TtdfQBdEwI7VMtxykHzWIgc ixEqxsOdOjq5MFIeF467TBX 9aMhkh3unAUG7EYRfEMUiNb CaBr4phJYmN437SAHaQBUUN FHyhWn6XGFmgeAtxtUmgUZV h460V139u7ysXYIjpwDjmJr Nlaviv8dxZ568RHUunSKvsy FvIkOvIQWgpUEvkQG6VZJoT G1omienOGpcUGgaHZNxrcR2 CSEtgXUwD1QlIFQoGX4ykpo sQIG8AFuyLMMqDFN9EaLkCE Ojt8Hploj9HwApmv7arp04R YB3y3AdjIhjZDQ2JUA8RgPp Sz4ioMSzZFTlMW8qVdShiVT nXNAgza36xQtsHNavWSG8AI NgnpTtq5Nni6wbXfBqgxNtF 4vjB2JiGWNhYWNlEXGfHdFg zlJbg3Hcu8EmnAZtzSk8o3d fGOSxFXQczCyni2zxYJF2JH NojMEdZ8jzwZ3bJDZjHY7sv czeg2tkKSuvAVccNSNhwAY1 noB8LVOohQUvX9KvuQ4xVPU mWEylJJDvkfq4XeNiZd8inT VyeTcyMFxzYmtwYWdlXHBnb mNvbnRccGduZGVjXHBsYWlu XHBsYWluXGYwXGZzMjRccWx cbGFuZzEwMzNcaGljaFxmMV ymTkMoRJOpIQydH8hyMePtX eQvAtf0JDYbcQGkWSJbZuu1 ASDnaTYdVVIDjOvxsP7cMVJ rwYpjbH4avDO2ILGahvUoyG BTqG9eGAGYgG8mLaK9BlYvX bY1HEu4DlWtdTHknB9= CPT Code(s) (test code h7ntiVRgSZMfhXB5BvPbWUP = 3357) nn9eqw9AniXZerEShMHcbyO PhhuHrqy13qAZ2qP23PO2zB RQvNrM4AYXwwcS2Aix1DDKx YGLugLZmX894k0hao5zptcC iuHO6kOgkQXFtketfGsQ7CC kxCGWrspyqOCq4PTlvAMBgg VI5PZFahXGsS8OgLWNsZW4s yqm9PEQ6TAjlRVOkKzW2DTP yvXVzBEEhqZycHKkqf430QB M2TnQiOLHsdtZjvDsuhN3cC zFkSKY9YKSjILytSFnzADLj cGFyfQ== CLINICAL HISTORY (test q5ffvBHtIHBapLW4IsWoKCJ code = 3356) un7oqc7AtoPZklASuWYcadA TvtyUclv40rSK3bI22XP5yP YVcOkD1XGGnwyO0Agk0PIYj NDGggAPmH643v6ydx0iwepX tfSP5DGZlTPIbE6DyKV7mUZ OiuQQqQ77plMXiHHD9VEMbW BNnmGIgZNEuLQM9MMYgwUCq I2ifBVNyZN2crcbsYDfrEQe rCPPeoTX4IVQvdEQeM9WlNX FjBTeaKSJsrew2TcHsAw7wu GVyeTcyMFxwYXJkXHJpMVxw bGFpblxmczIwXGNmMSBSSUd KDJCEKGGcEtHUK6LAPfIsgF FyfQ== SPECIMEN SOURCE (test t5dwnHXwAPDcqAY7CyAeNLB code = 3377) ke0zrq0KcaJTdyRHvFNzqiN UyvrOhxr60hWC4wE43VG1vI DXzOpK7OJFlhaX8Uwr9AFGv ZIDfdQFgG791i2tux3cpchX rrVV2iShjEGTsbjniWnZ4OL apNHOkqbokZQh1RUzmWSFhj CR0KQOjgIIzZ6SnQXYpVA4e xuh9HXY6UIbcRAJjTbF6IRI fnDViAFVntXohEFpdx641ZI D1LqFvUOPbexLzlTzlxQ7jS qKrBSRXGdEJNL6mhiXeVBzq DLRjPYWiH9y7PTihsA4paJN yfQ== GROSS DESCRIPTION a2hliEEqZEKujMO3XtJdIPI (test code = mx6rwu8EjaVDewEBzUHkasF [id number]) YvapIzug45bIM0rV11CW5gH NFaMoZ9EJRmfsB3Hed6EFPt YEDfqLWqE690z6ekn5uorgE izUT5ZLElXLWjX7IxMZ8eMR RamOItO03rvJUbCZY6CGWnB PAaqMElTHArJOW2ZBRsmMOw B8kdOFRxJU3imyeaOHcrRFz cFTUggDL1CXFqrRTlR3UkKF RnVWdkYXIjuvt9TgEzTn5hl PIfiVklGZpiXDYth7yjQPMb gBJzPXW8YVcwyRYrPWUsBTX kZSk0FMQcTKrynXGxBB6hoC ztRrsoxUoto5UqdRViZWwfL RKhABTsPZxzQAQmD2MHUKPd Qpp2NOixYwIkFUg4UAzmC6Z CPXIeJXD5IFL9BEXvYrL4ZF i2WKIZOe0oRDd0UtF1EuF3W ED1WwL9EBoonPOvOKpdXvqv AXkbFHUzcNSmIYnaagW9KOX zZVsnARQcXqGbZF3wRwRgn6 JhbCBIZWFkLCBSaWdodCBIa XAuXHBhclxmczIwXGNmMSBS ZWNlaXZlZCBmcmVzaCBsYWJ lbGVkIHdpdGggdGhlIHBhdG juiqLudpXxUV8xULDkL8Dix 3Jgg57rouKgFkDlDILhEGIu slqzfNAfxGznAHXquU2fAZb baJJkJSRszGUiXYH8AbUxxS T9OwNkdWQcIyQfX25mYdSzv 3JhbCBoZWFkIHdpdGggYSBq FRaoVIUzZUfsiR8gpxxgT1q rWBK2oweyP6PbQG8snpqozx 6xENEbECEpxnNaO1KsALUvu 0UpUnDxLPCxtoHamB8wlExc dV4cZwfqKCh5PXpuRY46vGZ rUxPsOEfgRFH8oGKjaFOyLZ IeBYmhJOWqon72TBmat7bxV ACaSnY2x9PdbMJtXH2lijXn PYccPwXbwIC4uLRcrISjY2l dKVE7onTsVFV8qCC2TQMeZE 7oDEPqnr9uQNEWYULuMKVyb yNlgEv8IQNjJEO7sK2vweSa zwZzj2PiwKq9bQDmQMurMNI lWTAhEDSujCvhu1voTpScFZ LojPAvBxzyOFNtc99wCHbex AuncBtuVC9inihdygCzhlMD XI7xxXikXPdkkJ9oRPLihXU fMGHiC5RsaVstmbwhDJYuMB sPCMyYW0VPATpwSOGwL7HmA 6MmfdN8g1ubzRopb5XznJUv GY6arNNgzW== MICROSCOPIC v5qnfIAgRIDjqRB3GhLsOBH DESCRIPTION (test code hc4lqk7RgdEHkjGXaCNwsuR = 3371) WearXoue18tLA6gV79BR5hR KNvBmE3BWQjgnF2Hvw8JPBj NJYnaUMwU979i6mza3psomW xzVB2eRsyDTSkjtncJcU4SZ ayVQUnrrudESr7SBmpIVIoa NO8IKNbtWPiJ5UhJAEdXZ9p erc8UZV6RDywSIFqKsG1AHP inUQuVKAbqIdtSTyof368SJ D2ZzReRHBmlgWkpPpmoH7yX jOqHKVOMEQqf6AoVDQrWTZs cn0= Gross assessment was [facility] performed at ([facility], code = 2777) Department of Pathology, [address] [place] [id number], Technical component [facility] was performed at ([facility], code = 2778) Department of Pathology, [address] [place] [address], Professional component [facility] was performed at ([facility], code = 2779) Department of Pathology, [address] [place] [address], [id number] 16:40:15 Test Item Value Reference Range Interpretation Comments Case Report (test code Surgical Pathology = 104) Report Case: [id number] Authorizing Provider: Heaven Garza MD Collected: 04/07/2022 03:36 PM Ordering Location: [facility] Received: 04/07/2022 04:23 PM SERVICES Pathologist: Omari Lora MD Specimen: Femoral Head, Right Hip DIAGNOSIS (test code = k0cvqCMgAXLpe8tbCEKpcAP 3220) uZzEwMzNcZnRuYmpcdWMxIH tccnRmMVxlcGljOTYwMlxhb bRqQZEdlMGzK6XkaivkDWfg RA5lEH3jlFstjWXypPLiJSX mMwGei0afs362oPDiw1kiIS JKraoygLi2qGvdG03vd6V6B yhtL77xbJEhGFE7EVCaUOZf zPPrRACzNZU1TLSqbNUgI3d vTZDkDD0nrbofEZfpQZorEC RjkRL3MTGieVBqS1AoGZZiV YhmXWMdgyu9UePgYi0qmKDl eTcyMFxwYXJkXHBsYWluXGZ uNbLmOo2RHAxrVdrOMJYsHk NPY5MEZAQRAJOZAGXBKmLXU j5HHUKGZSbvaUXoCXUtXCQJ AkfVEhvlFV2GPCrOBD1AFha IU5XkBCDCACKJAYPDHFJMTY GUPVCDPuXARIDJXCZUVF6IB DUoY03AA6aXFMBPSIQVJIRA NEiPJ4JHUsigQ8YoHwXLQ2Y VUkVccGFyICAgLSBOTyBNQU rRY60MOrZXVKEYGC7uxRUmw VzfsiIxSUifw2QaTVmjOPFn ZV5qgVuvOYLeYU6qJTHrT7i cvV8lkeo3DcUzAKGnUeI0NU BtmzA6Iyw9MBDzFSgue6kto 0IiHBSmNCq2hTydHjHnYNJs n0tthnOiHmReBGJoEDTnBPV tgIHyT711s7lfq1pzwpUgbQ A1XVBhFWE1BQramnDescS1H XiipEEzToA7BMnqfaWbOZpp efFthcUxAiw5TKKgX231MAI 4xHgzu1caYOA6DYCjBRAdCp XtAa6aeYSiQ473YTAeILRDT TTxgXk2YDCtwsSxkoFvsVLF i903T167a8oxQMDrzvDirJq Ztkhfn1fvX419HYCvcLBxee XjHaOwFSTbiLYxjZD1EJBrL E3illahCDanPYxbISXycfE9 CQTupCUvL2HmUGMgKE4utyz zDSD3WWzlDINrIZI8FqJfUH Lyj2Fowol5CmOuez1nlk74Z SU3k0SlpVeaQAD8KDO4BhUo Hp8pfMRjVVQwVT7cSrJniNU oLNLyvc16aBkfWEynYHA9IO SgudIkb2Wdx9zuKeQqnxAwP 8tbC9RbPLWvYAFzANAzCnGp bdXyk5Agj2QlzQEgnQq4s9x rCIXkCFHozEyqc5bnDMR1OZ HffUSoN4mzyJ2kEDFiEL5ie ebqx7okVFtlUZojPLEzzUV2 mmT7KNLurDLoO5OjyS1tJBS rUCnhXKFjszm5TvDlSr9wjY VyeTcyMFxzYmtwYWdlXHBnb mNvbnRccGduZGVjXHBsYWlu XHBsYWluXGYwXGZzMjRccWx cbGFuZzEwMzNcaGljaFxmMV zsJbHoIDTkVLpsU2mvPmRaQ wBxTnu8LGEniSBgRPBcJac9 AQXxtAJzLBZIrEuppK9bVWY wnTdtpB8qoMK5ITDqdtGpgK CRnQ2lAOWOnZ3mGaL2SxTeV wC5LXd1JpXydXXpqZ1= CPT Code(s) (test code q6wagIAhZDPjoMG0BjFaTGT = 3357) ue5tug0GeaUPotITxITngyM BxiiGbru16sRX2hJ06ED6qF ZIoHgW0OIJlcyE0Gmc6FIOs PATgdUUxL359w0cox0gioyZ qjVE0qRwsXXUrnbapErC9EB laKTEszuvxSPu0GUufULMng XV8HWXxrIAdB9AyKULdWH4o cgb1ITT5AYzpNSVePkQ7ZRY icAAvXZTkkXouGSlmj345LQ Y5BdHhJWPgvqEjpLyukJ5uH fOcNIN3BEJaGIjqVZqxONOw cGFyfQ== CLINICAL HISTORY (test q2oqaQXeVSSocCT4XlFtVMA code = 3356) lc4lor8RkgBUpyUQcYKgjyZ UahcZnss40dDT6dY66RJ7uM AEvQqX0XRHgzhM3Yzn7DQGx JZCcyEGeE692h3jdg9cwfuK liOP6RXHoQOAgF7SpUH0lQI SgwEMaW19onSHeILT1JLLaS WFfgEChJURrPUE1PBQzsTAv D5whFXTrUC7cmrbtUXewCDu nTFJofXX0AODfiYUvQ5LbFW WeUGalQMBsqta9JhDvIj3ks GVyeTcyMFxwYXJkXHJpMVxw bGFpblxmczIwXGNmMSBSSUd KIUVJYBLyAlRKU4KGMaNxeY FyfQ== SPECIMEN SOURCE (test f5uxlQKeZGPbjPV8EeWaACL code = 3377) yc7nxh5CmmPSbhXKsUMvzrJ McwdNrdt00tRB3yH03LR5aF DQrOeT0KBZgnaY5Lds7LJUd BYUekJGxA944s0jqv7xeidK emVP2pLkrAXOxtomxWwA2CA tlJJCvbypvQRa3SKukIDSzn LX4JAHgvGHqY2IbZUAhZE8r qnh9MRY5WZgiWRJrRsK8DUX pdJMnYZWzmVpvKFxrv252RL Z7QfNdNMYyhrNsqPpeqY8aI vLsBXMFEnSERW1plzIfMAwq OYPzMKFjC6e0YFnqxB9yqMR yfQ== GROSS DESCRIPTION o6utjDKmKEQubUC6LqBfKTG (test code = qd0iis7DinJUrtXOqMMlhtK [id number]) PljyYisv17aQK6yT91OI6oN UQyClW9PGFdvuF1Oww7CXDa QTAzuDSiA978l3lzs2uhnpR loIW4SRJdNDEoH6GyJJ4zEF MueFLwM01lnTDfZMO6ETKxH VRuvOJhWRQaIXQ9UTGjvHDg P9taYYQjFZ2apbmsGRdiLGf fSGXcrTM8IIZysZCkW9IkSD SrHQuuNVTxmgv2CqCcHb3rn ZSlmZkrJCyjOIInl1okJVYd gMYyXFL2DEtydRKrOOZtWXZ jOCy5GOLpQOptwOHiBA0riO abAekfnSliv4MeoONpXYfzL CFhBWLsXAxlAODvA9FJLZDk Atd9HDanXlLiESf2QNxaZ0P RZWXjZVB6ISC9ADNuKfU9DR q5LIEZMb2yNHp7EyV2QwB2M KS7DgR5THwdpARyHZdrTepk QCwyJKZzuHVwKFtajkR6SXV uBCytQHGxOaBtBO1aRhXcl8 JhbCBIZWFkLCBSaWdodCBIa XAuXHBhclxmczIwXGNmMSBS ZWNlaXZlZCBmcmVzaCBsYWJ lbGVkIHdpdGggdGhlIHBhdG umlsFrttJmRW8jJIAmQ5Qxx 1Ccz36ikyVhPjKjROJyZPDt ytmwrEXdlYbrFBOilY1yEGq buCDsDLJngLAaRSM8OdSlgR G3UkCllPGeBnXpA48wRnYur 3JhbCBoZWFkIHdpdGggYSBq EQkbOCUmXNtguM5pjyavV5d oDKN5teqpZ4NlPQ2mqpfhqe 5lTMAuUDRimnXjN8TtYVMrq 4ZyVbEnIIIymuRuxL2pjJip kW9oFbjaHAl0HIkuPO40gJX cMtPcSUbjFJI2rCVpnMOyZB TfOTrsSCIjxh27UNezy9alN UXxKbS6g7BhyEDsOL3tipLk FPapYuQfyET0lXCvfWMhU9l aKPB7biBnXZH9oWW9JMRaJR 7yGGNmkk6iZRDASAZxOIFnl jTymXr6NRUlUBG8dL5akvZw dbCyf9XtuWv8lBXhXNozTEQ tBSCdHVPmfScok7zwCrIqDA DptVFxSnepOMJgv72nNOrjo OzkmGusPS1bwkzcexKuqoSN SP6smAkpYTkvyN2hFUEvpQT lHQDtB1IapIygldtiYQWtAO pQRJiTZ5KVBAkjVUWoV3SdR 0EkvpH4k8vqdIdst6UwtWJd XA4jeNBbwY== MICROSCOPIC f7rmzFQhVQGitRY7FgMrQWP DESCRIPTION (test code il1zmd8SwbVCwgGAmJIzyuJ = 3371) GwtyYhqr07aYI5fP13HC2mV TEgKaR2NHKgjjV6Wfr9IQCq QARjvFBeF133o0jkw2ppzuS fnIV1kFxsFNQtbaxfWuP2AD gtATRbgpgeSGz5HGxmTVVvv LE9ZUZmrZYrB7CzMAUaNW4v fom9UMB9XTbkSQUzEnC9CGZ gmKZwLIDgwHwsPJotq268XY G2PkVnBJRlrzSaiPplhP2wI jZaSYCDTAKsc9YcDCYlQTCl cn0= Gross assessment was [facility] performed at ([facility], code = 2777) Department of Pathology, [address] [place] [id number], Technical component [facility] was performed at ([facility], code = 2778) Department of Pathology, [address] [place] [address], Professional component [facility] was performed at ([facility], code = 2779) Department of Pathology, [address] [place] [address], [place] [address], [facility] [id number] 16:40:15 Test Item Value Reference Range Interpretation Comments Case Report (test code Surgical Pathology = 104) Report Case: [id number] Authorizing Provider: Heaven Garza MD Collected: 04/07/2022 03:36 PM Ordering Location: [facility] Received: 04/07/2022 04:23 PM SERVICES Pathologist: Omari Lora MD Specimen: Femoral Head, Right Hip DIAGNOSIS (test code = e9qzjJBhYGPnp2nqAMVisNG 3220) uZzEwMzNcZnRuYmpcdWMxIH tccnRmMVxlcGljOTYwMlxhb rCjFPZwjWZxY1UfwimwQPyt GX5lQX0flByxuXCetZDfUHM mPgCuu1esy299nDXfe0xtES VRzoshgTv2nWqzJ93ql5Z1H pjpL00pjJVzUDJ6KGYhYGTs cQLbYWViFSC4ZXGbpJNpZ9p gVIVoEW6vqojvARrjVMsdSX GhuNP7GPUvlKKdY7NvCCSaS UxpUNKfnph7IvElOf1wfIVs eTcyMFxwYXJkXHBsYWluXGZ zDcMgMy6JWRaoOyqCTWTgBu PBO7OSSGDJLPULFKVXWvUGT i9YLGNQRGvxlXHbGVPkCLIL XnmPXuzgYW1JVIoAJN4XVoq ZI6VrFFDSFIVJFWSJYXFHTM UWYCXLTwGPONBPDSHWKX7XS OIxB13AU8sHUJUMXGCUAQDQ LTvHS5TURxpvW0HdOtJFG2E VUkVccGFyICAgLSBOTyBNQU yFP69CYnPLZBEGAA4sqOGoy SwnblGlVDwis3JzOEyoKDSd MJ0vyPgbAITpBJ9hLFSoH8e ruL5uvis5XeIuQBAuYzK7MA TzqgE2Qsf8LSPfEDgww4ois 4CyIGFxOQz7eTzsNlNrOGJy z7lcvbXkInJtRKQaZODuHUF knZSsL841d9gjp7vzxdNtiQ W5SEHbOKJ5JUstyiJnivI1T RdxoYLvPrX5RAwhehXuBKwn wrUksaTiCpk5PLCpM047VSA 8wYvyr8ceEZO7QKAcSNIfBz ChGm8rcAYmR808PSJgNOLSF DXhcXp5JRQfwfUetkMskDRS w619K983v0mzCMRjvrBtsFr Gvxjru2foH881JQIecAKqgd HqVxYtQGTbkBUeuBE6GOSmV V2rtnvhUKpgWRdhLEWxtdJ4 FVCelYVhX3YaHEJdRA6zghl vXHY3PVnwRLOqPRW3TlLhFV Cjh1Fcxdc8HeAgwn8gxq26H EY8d8OkjJfiSOY8KXK9WxWz Vv8nbMUbSVUdSX6nOhBtiXS aQTUqhj48vHleOZobUPO5TN UezvLrb0Pfb0twHlDjbnPqG 7eaN6VmJVLnAFZnBTJgCaFs oaAnf6Yaj4KjuYMowEg7p5g xPCBkAAXaaAqfo7obNTX4VZ QxeVUdX4dkrE8qYYMhUU5lt eqnc2eiYYwcPHcyKAHnoYT1 pbP8RBYagSToQ9OwyD3yLDH iKQwuKMNrwoz1LqLyJh4niP VyeTcyMFxzYmtwYWdlXHBnb mNvbnRccGduZGVjXHBsYWlu XHBsYWluXGYwXGZzMjRccWx cbGFuZzEwMzNcaGljaFxmMV uyCfYnRSKbGXtpC1hiCtCjI rFnSvk5KERaeZTxLFKoFzw8 BOEyoUZdWOMCbUdumB7sPSK gxIyqiP9vgGE1YOFckmVztY TZoO5fWGSCtI4tOhE2GlPzH bS3BGe0ZcKjuGMngS1= CPT Code(s) (test code f7nrwRMoDTJclAV3JnMeWCI = 3357) ak9aag0CnlVWiwIHpOGihtX OmnxBgty81hVG3iP52OU8tI SUrJhF4HGGpvzG9Sok8HXBo FJYptUSqP729n8qcj1ydxzM lrBK7wJoiNSZwdczlWcU4XR kmVRBtwpioMMg8PFxiKYOec UZ4XKZyhLNrN0MaVAUtEH7q vsy9NKY5BUrgSANrUvJ5HQE gxFKjSUNzdJjkKAlng717DL K8WgZrTBXfthKcbYapuO4fS wQtUHL3HXQzEAldSGaaWUKi cGFyfQ== CLINICAL HISTORY (test n1fdhVLoZPJteHP7OoFvAME code = 3356) su6xfq2UqlZIjiWAoDMpgoU IzpsGxrn51uJK0zL68VA1fI UWxXoW0AFDzxdO3Cfm7TACb XESgxHPeT383e8qxu2wlwdV cmBK7YOHxHRIrT9GqOA9mAL EvxPBlK76yeVWtPIY6PNRbW YGscZYmMVCfBHP0GHDomYLe A7ckYMQzPN4jlkvdKJiwPMr eLVFyfOI8TKYvbESkW9HlEB RjGRmqLYEfxxh6YjLrJz7qf GVyeTcyMFxwYXJkXHJpMVxw bGFpblxmczIwXGNmMSBSSUd PTIVKDOLiKsROE0YLVjFexE FyfQ== SPECIMEN SOURCE (test t6gzdKUkUQFzjWL8OhKjMSE code = 3377) yq1brl5CbmFCfeQQvWUkhrC QakoQusv15rGB3nH23BS9sH TGmOeR9KMXjioU9Eov2FCPg TYSntBKfF282y2erz1zefqT atCW0gIhvFQTsjxorJoC2ZB joOINrdowkRVw8KGluXKTzl YG6LQBeeTApB5YdYJZoOL1u veh2GVS1AAbxBYIiFfM1BLO kbWNfSWQrxJtbFHgiz986MN J3KnKcUZVzwaXnvZvhzO0vG bCvJIXUDvPGXA8habCeYHow SARfAULfE6t8KDywiV3kwUX yfQ== GROSS DESCRIPTION y0esrROzKKCepXG3NpXvIZT (test code = ii9zyg3JpmEVmoOAlLVwpxS [id number]) IsoiJtxs43qLB6pW51QK4uR PMaFpR1CEJrxoK8Vzs9NWRn UMGdrDWqZ359b7oyw6jzdzP wlGZ3EWGnTTEiC4XgSH4gRE OuiDChC67rzAEbGAM5NXMxI KSjyZUeYNIySKU5LVVnoMMd D6naNMRdEX1qrsdhLGtnKEc zWGLbbXL9OOWbiYSzH5ZjGF IvUIfwDUJxjac7RdDoGm0hv HMibOfeSKipHCGua8ziNOBq aUSbHIX5VJkfsJZbBPErKHM fXSj0XSOgBExapPMwAY6awX glLbkfdMtxo4QarLHjVZqcS DHxSYWuQZqcFZKhP6PMJEEx Blg6IWnuHyCfHFy3TNzsN0H CXJVbPHY1LNH7GFPmHsY6DA h4IYSEOr8wRHx7OeE3CkR3Q OD3OdD1NFwkiTLgEKuyZmzw ASecTFAahVYvZCufdnM0QOE wVIhbCHPqJzGlOV9kNhCmk2 JhbCBIZWFkLCBSaWdodCBIa XAuXHBhclxmczIwXGNmMSBS ZWNlaXZlZCBmcmVzaCBsYWJ lbGVkIHdpdGggdGhlIHBhdG pfduRmizEqBR2aCKSoF4Yzq 5Pqu07purNlDoNgTADtMGZx taeguNUkuZuqWTCvsR8cYSq zhLEfVIMezZMaCCO5EuEepF J2MlYkiOMuIhCvL91uHoThy 3JhbCBoZWFkIHdpdGggYSBq MXiaIJMvFKqwgB4crpkiF9f rSGC0cetgL7SdMU7gtovbjx 6dBVRzXEQcpnTjI2XvBADdj 5RpDsRhHKNuxwJkdW0fzNqu yS6iWyevVJu5FZwoAF38yJN iTpGdMIgiOZO1iFUwnSTcTS KiXIjmIYVpgt44NDyjp4jrU WYxHlF3s3LsxVNgXH8qydEp ZIvvLxHynXH0qQRdpQJcX9p kIQG1clYqUHI8jBR3XXKjXS 7uDAWnxb4yCVOXPWYsHUOlo jWwgIn5OGVzHME6yV7qysWm qtZiq0JlwDq1cKIaHJclMAS fXMZlOGDocJrna5fbPtIeNQ MuyCAfFjuvAVYdw94fOLubp CghoMvpDN8pqguzssPuugVU BJ3msMcnVKsmoI0vCQBgqAW qWNPbW0MmiGwmcmwwIVCnLZ qTGAwPJ2URCBgfOJMbK7VbS 1QipiG6p5nekVuuu3YzhMRd OA5bcUWyaC== MICROSCOPIC y5ysvOQvMRFsvWE5RtOsRKB DESCRIPTION (test code gz2npy4YzwXKmuYOpBOhfeK = 3371) JyqsBsip32sPF1uE34RC4iI UBuZaU4EXMkuvZ0Jpl3FZPf LFOqxHAaP373h5qbh1dqckG awHP2pYnlCINajbzaHqR6DR yxCRBcsxxnSZi0OXhcGMFxq TV0DJFecPPrG6RkIKHnXV2v jyw9HHT3RHzgAVXzOxL6MET zuHBmUVRmnFaxZRzur342FP J1LrJiCINnknKjqXejoN8sL cPoKGEQIZAqv8TfNRCgOZNr cn0= Gross assessment was [facility] performed at ([facility], code = 2777) Department of Pathology, [address] [place] [address], Technical component [facility] was performed at ([facility], code = 2778) Department of Pathology, [address] [place] [address], Professional component [facility] was performed at ([facility], code = 2779) Department of Pathology, [address] [place] [address], [facility] [id number] 16:40:15 Test Item Value Reference Range Interpretation Comments Case Report (test code Surgical Pathology = 104) Report Case: [id number] Authorizing Provider: Heaven Garza MD Collected: 04/07/2022 03:36 PM Ordering Location: [facility] Received: 04/07/2022 04:23 PM SERVICES Pathologist: Omari Lora MD Specimen: Femoral Head, Right Hip DIAGNOSIS (test code = h3eohUEgOGAet4onBVYhhPJ 3220) uZzEwMzNcZnRuYmpcdWMxIH tccnRmMVxlcGljOTYwMlxhb dDcXWVonUAbG2CfjjkrMHja LL9rKQ6jfFwkyERaqJHzDKP bJwKfd6qfl263wDSxa3qpAX VUezwtkEr7gIerA25dk7G7D kfbQ20ffRIjGKH0UCCpEFRm bVAlQVTkRMM1CNKlyEWaH8c xDSHsVN9imivvHVrfMDtuKQ UboXW7PBNacFPvJ9AjVIIeP BqeIJFhthk8PeKnLk4giJHh eTcyMFxwYXJkXHBsYWluXGZ tSbBtLz4KBWmoYadSSLApPr HED2DWNRZWCUQZLVUIIhVFG v4PYASJQDtbcILfNQGsMQZD ImdJPmbzXY2NNGeWGW6QTth EH6JpGTUOQJRNLKBGCKMFNB OZEKZFKpHNTLGHVRUKGV6XI SElV30TG1aSQASMXGJCAULU EFjWS2FQVlemE9MsMvDDM6D VUkVccGFyICAgLSBOTyBNQU vML57DRwKXJASPOM4mnSPfg NievgCqUCwdm9KvHSafADVz DU9ocWrlVELgOW7wZUKvR3p haV9xgui6WzCyLNDoRlK4SL UeosL1Ope9EEReMJron7xrx 4HeYSXpDWq0wJdlQoQmJMXj e8iszbOwRnDrEFKvVAAtLHS hgXTqR901a5krs8welmGdeN M6LMNzOYX7TDvgbyOzkqO8N CipcUTmCqL6FFiwisEnYMvx ttMdncXcKaz6NRXeX160LEK 7iYoal7bcJHI1PUTfJQQpXr UbLg0xdYGxV318JNGdDNAAC VXxhQu9RUQynlDuqlIsbNOC y610Y500i3ufGWTxuiMugMl Wrtvjk9klZ164BJSvvHNrfd PzFtYsWUWrjEWweTA6CTGvS R1ufywpPNbbBVybUIEdxpP5 RBVubIMkA0VlPEToXS8wfka xYGJ8HXfgNUFoIKA2NhWyKO Gct5Pblcr0QsXvyy8jje03S FG1w5NanVozESJ7KZX0GmPt Sb5ahSVbHZAnTG3dUyRekNJ oYFUnxo57gRjmUDinNDA9CK FzbqIwe3Vxz2rbDzMvfnMlS 6ueD4WaVJXsIXHhBTPeYuEu roLvm9Tlc9GsoVIqfFg7h7f bRWBcFEKqoCehv1etACC2DL NtyTPwQ6felN7sOZGgXI8yb ztsz2wbPXlxXFffAIJdoWL8 qdQ0SEUydVRwD1RlwR1nDKN nDTetETKblpk1BtLiTa6fpF VyeTcyMFxzYmtwYWdlXHBnb mNvbnRccGduZGVjXHBsYWlu XHBsYWluXGYwXGZzMjRccWx cbGFuZzEwMzNcaGljaFxmMV xfUwAkXCIgZTtvS3jlKqCrZ vItGwm4DTPnqBZeJOYlRzv9 NBWcaBXkNEFAmNhzeS3fSRM lmIqetH2fqMU5QSUcdqUflK ARpI3xDFZBcS3nMtH9LiSmC hT5IQe0JiWupGXxwC5= CPT Code(s) (test code e6lvcUEgEVIbvGQ6LaRtNCT = 3357) da5eyd6TrqFGtjIEaNXjweB GbmyPtdh90iFP3hI26XM5hV CAhGsB3CFSlwiN2Zlc7KEMu CVKojANhA346a9blm8zrgyM nqFM6rCpvZSElwrhdPzS7DD tqRENfrmeiTUv2ZIcfXDRwk US3KUXufNEvP4KtTHJvMU1k amm3OJS1CAlyYCKdXuW4DBM twPWjHZSpfAbrLNtqr690LJ G9ZvYvMOObgsAgnQiswY4mQ fQgXAE2QWSdAJfsHZbzYEVg cGFyfQ== CLINICAL HISTORY (test g9wwmRBtMQJgiMQ5YrWqAZE code = 3356) oi8ykc6JfyJTlfPRhHFzkaF BfopIlqj97aEC8xL35VE6tU UToZmO0QLArcoN4Qdm8LFRk FQByxAHtI010f4mkc9boxuE nkPN5FUAqGNKxP1JeVN6wSX IjvMEoD15ppQCjBKN8UXLlG JYkhNJdLXItSGT6PTBmyIIh D3wkOCSxHO3rghiyLVwgDYa yYOHcsQS3IEJllQUwZ0ZnOJ PnHXncZYFzfnf4GnQnZy6tv GVyeTcyMFxwYXJkXHJpMVxw bGFpblxmczIwXGNmMSBSSUd HNUULUIFcEtRYE9QHTzVwvT FyfQ== SPECIMEN SOURCE (test a8yqnJWnLRBnnPM4HhEqXWJ code = 3377) va1xrk2CwdXGflUVaYYwpaL XreiYcly00gGI2pS41VH0jG IHaFrM5PHFhqeJ7Prv9MKCm FDFznBOwW783y3krm9bdhrI whBB6hYznJULauudzVyK9KV deRTGuqbkhPHm4VBojRKNif VA2LYKibMPgM8ElFTWtDT0s hub8MRP2QYbwOOOnLwV9LOD fsJWbGGRraReoOOlex822YT X6AjWzTOCdohSrdPinoD1cM mZlJAZQLdHKDV9sbrOjUJco SBZnKDBhW8k6DKnklL6pqJS yfQ== GROSS DESCRIPTION b1unrGLkBZBogBD5SoSjDXO (test code = fv3pks3UtpFPruLXmALqzdN [id number]) RvjeWanq61dZZ4rK24ME7qW RVcTyE4ZPWxcbT9Ams3EHLd EPUlmUSiC275y5ygs3pmhqE ooAX6LYYfGUHcQ6XkMW0aCY QchCFvZ30irFJiXNG8XWBjQ HQxaLOtMEHjRGW2XWEsfSGm L9lwCPWbNP9fyprsKEdrBSb oKJXfwHI3FBRvnTAjH8DtER WvZEqgGLZjxdz1DyMbEk8dx BBvzDcfFYgvJJGit5vcQLYf wZAxBBI7AWygjLTyJYFaDBS bZBe2EUMdAConlKZbJF2tdF anOwxegMhgf1YyvBDcTClxN VRkQFNtFSjcPKJiS5UXWWEz Ufv6SWdzMfNeWOb9QObiB4T VLBCgBTF0TLT4KMPlOpT7UU r7RRKGJe9bWIe1GyD7HxX5W OK6KzU5SGpkxNFiEFieGuoq FLqrMBVuoFKvEKmhxwN5GRE gLCijIDFjVhKqRY6dMgWzd7 JhbCBIZWFkLCBSaWdodCBIa XAuXHBhclxmczIwXGNmMSBS ZWNlaXZlZCBmcmVzaCBsYWJ lbGVkIHdpdGggdGhlIHBhdG qyiuJtrqIoCJ6xXUSeN4Pna 4Bqx99tmwArQhBiPQEuLKLt euqugNFhwRpeIRCgcO8jPMf gtRHiEPKsfJAvMOS1RjWtfI D8JlGdjIUyBqJnY31eYpKwi 3JhbCBoZWFkIHdpdGggYSBq CBrrGVOlGWjcpY7fbavcK3m rFKF3tvgaK0XlAI3fabopsl 3eNJLtNSMjrrMxV0KjDTQnb 0VeJpFzLXBlsaTgdE5yrBoe tI7hMabxZEe2MIayLL19zZE zPkCrYCotTBF8jENymQRgHS DyBYuhWJXxxv18CQmqy1ueV AGtIsQ3u3GyvIQsEQ3rlnVs RMnrDnJinIO4rQKtkIYyX1v xJJJ0dkKsFEP8wGC3HPXbWN 2bHRBtvp5mAFFZTEUmASWfz kDaxNy1GIAaYOY2kK7tpyWy psLeg7NbjJn5hVCnIKuuSDW pENDwTLLqpXper3vnExAuHO NipROhNyukHNAow22wOTzhi VgxmZwtMW1mmzflaaLzdfWJ NC2iuVxsCThdsE2yIKVqcHL wFOErE3UetIlnukvmBYNwZQ sEHWrAG0WUPKcqZKIsI7RdQ 8ZilwT1y7fcmSgwe6QjiCUj BH9hkVEdyS== MICROSCOPIC g6wogPWgLZQfoVI6KkIkOYN DESCRIPTION (test code bp0gga9PicCZuhUGoKKtbmH = 3371) EbjwWlxb80cYR7aM39JC2oQ MDyRoO8SIKqloC1Rab0QAIm BNXmzHTmS938y9iuu0arycJ rqXP7uTwoIEQvviaoSzM8ZC irLTVwbtzqBUz3CEydYDHgl BO1BCQysNMiG4EdPUDySS9k hls8QOC4VSbcRIRfEyG0UTQ zoUYoJHOzrLtgPIoad810LI B0CxGsBQUdxiOibUgknM1yQ dGeEKEXAQVea9KxKWTpKSJe cn0= Gross assessment was [facility]'s performed at ([facility], code = 2777) Department of Pathology, [address] [place] [id number], Technical component [facility] was performed at ([facility], code = 2778) Department of Pathology, [address] [place] [address], Professional component [facility] was performed at ([facility], code = 2779) Department of Pathology, [address] [place] [address], [id number] 16:40:15 Test Item Value Reference Range Interpretation Comments Case Report (test code Surgical Pathology = 104) Report Case: [id number] Authorizing Provider: Heaven Garza MD Collected: 04/07/2022 03:36 PM Ordering Location: [facility] Received: 04/07/2022 04:23 PM SERVICES Pathologist: Omari Lora MD Specimen: Femoral Head, Right Hip DIAGNOSIS (test code = i1ipwSHzSWByp6vrBBCawJG 3220) uZzEwMzNcZnRuYmpcdWMxIH tccnRmMVxlcGljOTYwMlxhb cKpROZhfUDhR3EomivwWDga KY4sDI7ldPinlGYmcZUqZXL jVpVtk7xzj411sKDvb6wqSF HRjlommHg6vObnD13kq1W5Y yjzA16qrJFdXTD4KMAuETIv eTUtNEYzIDX7BQWutRKjB2t dPNCfYC3uoeqhOBlcWHxaPS McxJW6CMPqjCPnF4QpMCLaH CmsGBMbwbe2PdVgQh6bmNKc eTcyMFxwYXJkXHBsYWluXGZ wSzApYx1DOEpkSohHUHDjLi SWO0ZZKCMAHKKKJEBEFsQQB q5TYJBTUIcqrHScHMVjFHYF QicBVweaUP5GCWlVWA1FBpm NZ8GnBMAJMUYBLVCBQYZILR GOCQBGZmFRSGIJWPSVQU0HD UTmD82XK9sSJLXHKGTHOOLJ WEwEC4ZHIknsO8ZiKvWNZ5S VUkVccGFyICAgLSBOTyBNQU uLS89STdAWHJSIOF5ccFYma AonpdMgZWgkg5TyJEivLDVw NZ5whMmnIKRoLW1oVGWzG9n vdT9mlmr6TnTmOJDyYqM0QF FhexN5Ovp9CWYqFJbfw2ydv 9RuVMAwOVl4bWlxAfMpECRf i9ipfjWoQvAaPUGfFFGzUDI ytHRmN426r9xas1jvtmTgwO I6JWNcIVL5XGwuhdQhnhE2R NhpjBJzIaW5LDzxddXlKEup tqKznkRsUik8SOQxS871MCL 4yHkrx1rtESB2NBXiZPRcAu MeAo8ezRJbN840OGYvOFUJF VFxdRc6TWWbzaMofiGelOMX b358B647d1hkHBHxlqVryBm Adlogn5ygE888JQLxsLUtul UbDuHqCDCguTSlgDO3JGTrJ K5evuthPEmtLNhfJNMjkcW0 BBZfuLBjX9HrWJWeUO0srlg fWCD6JRdnWQOlVNA8IaJlET Cba1Kmczx3ZoSzyx6jlt72W EP5t5UnyZdcMEQ7QTQ5RoHu Li2bxDNlTMFrBG0kJjCcrUK oAVFpes92zYkmZRbiWOX0JI KsrjKxj7Ctx6zcYySibgHtF 0cuB2GfBTIwTHKaLLZlYuCj dzSpo1Snf4WrjTVtdSm3i3k uLMRjUKJzhOwlc4uvIUH9HN UmsSJoX7djdM0pYELuRF7vw tqlk3pxQIadMIkuPUDlrAM2 tjW4ISZnyXMnS0PadW1oQWW jRNjoEEWacfy1CqUvDh6inB VyeTcyMFxzYmtwYWdlXHBnb mNvbnRccGduZGVjXHBsYWlu XHBsYWluXGYwXGZzMjRccWx cbGFuZzEwMzNcaGljaFxmMV upUlDvINLiKJxmT6oaJiFpB kPqRan8LPCsuSGkVRLxPez9 BDIepRMfSGEBqJamdN3rKUA jhKjluX3lqWD1XNGqzaIqzQ OJyF6fDBZEyR1sXkO2FfTnC cS5UNz5QvRtnSCzkA4= CPT Code(s) (test code s7bbdJIvHRLyaOQ8FxNzPPC = 3357) kd7fxt8PnlDPgtGHsZIwbbE VbzsItyc33lXX2qD82UU6cF TEzLjX6JHFlskQ4Jog9YXKd NHZnrCGrK901z9adl5pjdkI gvIL5jRkvWMLjmtsxXmF5ZS bwUJLuerkpDHu6MHemOMMvs EV0HYPixMTkZ9EfZLSsQK2d phu2QCO8GXhsEZNjUeC1DIO vqDShTBYzfTncZKswx375BD E3BkDqKHSvccEfkLcklK5zT bAyIIV1DPKiWTvdUDuxECBk cGFyfQ== CLINICAL HISTORY (test m0rtuDWxTCQfzLY4RoTzUAU code = 3356) lj4lxg5YfnCAdeOClWItvnG OkamBmho71vYO5jH87IA2gD WWqUyD9KJOjqpQ1Bwm1CUFk ZHSojLJxY444j1wdr3gfrmM jmOR5WWWrFKTkB8DiOF0iOY UlgUMsQ88pwRCfGKT2UONhJ JQraGQuZMRpZMU6FFBmkTXl W4voENVgPN1vjujuHKapYMn nZOIhlLS8LVBioOMwS9YnGL SqHHkxGYEwvgx3UtRyGm8et GVyeTcyMFxwYXJkXHJpMVxw bGFpblxmczIwXGNmMSBSSUd BJMSTLAJiKeSAA7EGQuMrpM FyfQ== SPECIMEN SOURCE (test x6olwDPlMCOvrWE8KjZuWUB code = 3377) rd0gps2LvcDAncDSoBSoopU FxzbNdqz73bMQ7kS30EY2xC BHnGzL4TRMnoeK3Lds6QTQv VBAjbDQzS796b0fdc6mrsoA qrRZ7xWwtHVXowufiYzP2KW muARByxrvvIHp9BOoxIRLjj VH7KLJrsYRbY0BsYXZhOK6h ucn3LSU1TQqrLJVxNiS0IIF pgGTnSFCbdYnaXTnyd771HS F7JzKlPJYwjaLtgDmlnI3nB nEqSUESWgRFME3svrJkWMmo HNDpMJSrK4p9KWzsoM9faRX yfQ== GROSS DESCRIPTION y9gryXEtRMUmqTB7OgSyLPC (test code = bg6geu2IhrYMzuUUtTPvqbA [id number]) HknbWdxr67oBW8fV41UA4gJ RIzGyK6LEDbfcB3Yyv1QCLd FDCdmPVdE848u7cno3pgzdY yiRL6HUIgOZAuU1MpWF5fQH OokPVjX60rgEYmNTS3TVJbL EOqqVBkSFDcNEW1IKXcvLEy R0trSQOnTG9flhsgTImiEXa aTNZwcOW4MDJgyLIhD7VxPP TfIIiiZYQqsgn5KrPyCl8cu IEkoMfrGNqeJZAsn8jwNSLu sSHeBSV7ARreiRAdUSKhSWY fAWb0FOIgYSlwhRYzBS3llF ppFflxsScqq2OeiUZqIFhoG RNpBKStUVgcSJItD0PNKZZx Pmt2TYtxRwGcBYl9RVeyK4O QBGUbXWW2FCM9CYOeLjP0SR q8BNFUQo0oZLs9RwU9ZwT2T PL3RsA1TBnvjDJlEVufCtlu OPmtFQZjnTCbFMrmksX7TZK cXShuTJNoVbYeSA4pDkOfs9 JhbCBIZWFkLCBSaWdodCBIa XAuXHBhclxmczIwXGNmMSBS ZWNlaXZlZCBmcmVzaCBsYWJ lbGVkIHdpdGggdGhlIHBhdG suxpQqxoLoOI7iURCcA2Jkt 8Euk70pjbBcRuCrOPAzYQRu jpoinFXivEnsNYFiyU5bKXt pyLFhDCJfwIXqAMF9VmKieE S9JpRhfTUlTsAdZ78oLuEgc 3JhbCBoZWFkIHdpdGggYSBq GHraGPRsXDsroV5mbqjgY2s kOXC9wipuP6BuDS2qehpdro 3jJNHnEYEutpPmN0DxCHPbd 8CuRiHgTZTttyHozG0xyYqg vU8zRiioOAs7BBwvBA17vOY tTiPnTIfgEHR2gCHqkCBhVX DyIOirGGUpml89MRjdx0ldC IRfCbJ3k6UpbMQuHV8qkhTo INwoVzAqbXY0zVMwzJMrU5j yGTP9fuMsHEP1gJF8AOFfSQ 3rMTPceu1fWJURWBNaJIYkd tQuyMf2NEIuEVX5kR2pliLn zsBra6KrhJq8jDRjFAsrRDM lAJXhKRBbbGxop1aqXfUaAH OjlFIyZgswTRUna37qITfog UaifQckSY6ofutaedEoafVR OD4fmBqbJBeneI8jDZUgwJU rUTMyL0VhhFtdwjoaWBWdHT fGOKgVW6JSLXxvWPLiB6VuR 5HgorW6h4crxVftg0MdjBQq TW0tsHVbcJ== MICROSCOPIC z4pyhONmFOGxvPK8GjDlQLO DESCRIPTION (test code lw8bfr4QgeMYeaHYiPObvoC = 3371) SfosHmet89dGN2hP29BR6yD BZdQjP5OVCsyqB6Mtn8ELXl EEXtjQAiW859o1zkl3kikjP piJE2zOdmYCVaodabArX8TO irBOOrywbhWSp0FYcnPVHol AQ6PARrvXArZ3GnXIXvYF4e iig9WIO2WZmtWGEaQkG0MIZ hqLRmBXFseYdsMMhas683DW E6WeStFNXaazMooBkedF3cK yPnVAOEUPJtl9HrDWIoRDEz cn0= Gross assessment was [facility] performed at ([facility], code = 2777) Department of Pathology, [address] [place] [address], Technical component [facility] was performed at ([facility], code = 2778) Department of Pathology, [address] [place], [place] [id number], Professional component [facility] was performed at ([facility], code = 2779) Department of Pathology, [address] [place] [address], [facility] [id number] 16:40:15Surgical Pathology Report Case: [id number] Authorizing Provider: Heaven Garza MD Collected: 04/07/2022 03:36 PM Ordering Location: [facility] Received: 04/07/2022 04:23 PM SERVICES Pathologist: Omari Lora MD Specimen: Femoral Head, Right Hip BONE, RIGHT FEMORAL HEAD, ARTHROPLASTY- ORGANIZING HEMORRHAGE, REACTIVE AND REPARATIVE CHANGES CONSISTENT WITH HISTORY OF FRACTURE - NO MALIGNANCY SEEN Signing Pathologist Direct Phone Line: [phone] signed by Omari Lora MD on 04/14/2022 at 4:40 [id number], [id number] HIP FRACTUREA. Femoral Head, Right Hip.A. Femoral Head, Right Hip.Received fresh labeled with the patient's name, accession number and "right hip femoral head" is a 4.0 x 4.0 x 3.0 cm femoral head with a jagged, hemorrhagic surgical margin. The articular s urface is smooth to finely granular. The cut surface is zurita-yellow, diffusely hemorrhagic at the margin, trabeculated and firm. Environmental [employer] Aide sections are submitted in A1-A3 following decalcification,with the margin in A1.HANNAH Cox, HT (ASCP)Performed.[facility], Department of Pathology, [address] [place] [id number], [facility], Department of Pathology, [address] [place] [address], [facility], Department of Pathology, [address] [place] [address] 45952, DBTS-CoV2/RT-PCR (Asymptomatic ONLY)2022-04-13 17:25:46 Test Item Value Reference Interpretation Comments Range SARS-COV2/RT-PCR Negative Negative The SARS-Co V-2 (test code = target nucleic 46343-2) acids are not detected in thi s [...] revoked sooner. Fact Sheet for Healthcare Providers: https://www.LicenseMetrics/Documents/Xp ert%20Xpress%20SAR S%20CoV-2/Fact%20S heets/302-3802%20S ARS-COV-2%20HEALTH CARE%20PROVIDERS%2 0FACT%20SHEET.pdf Fact Sheet for Healthcare Patients: https://wwwEdvert/Documents/Xp ert%20Xpress%20SAR S%20CoV-2/Fact%20S heets/302-3801%20S ARS-COV-2%20PATIEN T%20FACT%20SHEET.p df Lab Interpretation Normal (test code = 99210-2) [facility]2022-04-13 17:25:46 Test Item Value Reference Interpretation Comments Range SARS-COV2/RT-PCR Negative Negative The SARS-Co V-2 (test code = target nucleic 12996-8) acids are not detected in thi s [...] revoked sooner. Fact Sheet for Healthcare Providers: https://www.[employer]/Documents/Xp ert%20Xpress%20SAR S%20CoV-2/Fact%20S heets/302-3802%20S ARS-COV-2%20HEALTH CARE%20PROVIDERS%2 0FACT%20SHEET.pdf Fact Sheet for Healthcare Patients: https://wwwEdvert/Documents/Xp ert%20Xpress%20SAR S%20CoV-2/Fact%20S heets/302-3801%20S ARS-COV-2%20PATIEN T%20FACT%20SHEET.p df Lab Interpretation Normal (test code = 80768-4) [facility]2022-04-13 17:25:46 Test Item Value Reference Interpretation Comments Range SARS-COV2/RT-PCR Negative Negative The SARS-Co V-2 (test code = target nucleic 69537-7) acids are not detected in thi s [...] revoked sooner. Fact Sheet for Healthcare Providers: https://www.[employer]/Documents/Xp ert%20Xpress%20SAR S%20CoV-2/Fact%20S heets/302-3802%20S ARS-COV-2%20HEALTH CARE%20PROVIDERS%2 0FACT%20SHEET.pdf Fact Sheet for Healthcare Patients: https://www.[employer]/Documents/Xp ert%20Xpress%20SAR S%20CoV-2/Fact%20S heets/302-3801%20S ARS-COV-2%20PATIEN T%20FACT%20SHEET.p df Lab Interpretation Normal (test code = 58061-0) [facility]2022-04-13 17:25:46 Test Item Value Reference Interpretation Comments Range SARS-COV2/RT-PCR Negative Negative The SARS-Co V-2 (test code = target nucleic 46640-9) acids are not detected in thi s [...] revoked sooner. Fact Sheet for Healthcare Providers: https://www.[employer]/Documents/Xp ert%20Xpress%20SAR S%20CoV-2/Fact%20S heets/302-3802%20S ARS-COV-2%20HEALTH CARE%20PROVIDERS%2 0FACT%20SHEET.pdf Fact Sheet for Healthcare Patients: https://www.[employer]/Documents/Xp ert%20Xpress%20SAR S%20CoV-2/Fact%20S heets/302-3801%20S ARS-COV-2%20PATIEN T%20FACT%20SHEET.p df Lab Interpretation Normal (test code = 53078-3) [facility]2022-04-13 17:25:46 Test Item Value Reference Interpretation Comments Range SARS-COV2/RT-PCR Negative Negative The SARS-Co V-2 (test code = target nucleic 65986-1) acids are not detected in thi s [...] revoked sooner. Fact Sheet for Healthcare Providers: https://www.License[employer]/Documents/Xp ert%20Xpress%20SAR S%20CoV-2/Fact%20S heets/302-3802%20S ARS-COV-2%20HEALTH CARE%20PROVIDERS%2 0FACT%20SHEET.pdf Fact Sheet for Healthcare Patients: https://www.[employer]/Documents/Xp ert%20Xpress%20SAR S%20CoV-2/Fact%20S heets/302-3801%20S ARS-COV-2%20PATIEN T%20FACT%20SHEET.p df Lab Interpretation Normal (test code = 86998-0) [facility]2022-04-13 17:25:46 Test Item Value Reference Interpretation Comments Range SARS-COV2/RT-PCR Negative Negative The SARS-Co V-2 (test code = target nucleic 81366-3) acids are not detected in thi s [...] om SARS-CoV-2 [facility] a [facility] s suspected of COVID-19 by [...] revoked sooner. Fact Sheet for Healthcare Providers: https://www.License[employer]/Documents/Xp ert%20Xpress%20SAR S%20CoV-2/Fact%20S heets/302-3802%20S ARS-COV-2%20HEALTH CARE%20PROVIDERS%2 0FACT%20SHEET.pdf Fact Sheet for Healthcare Patients: https://www.[employer]/Documents/Xp ert%20Xpress%20SAR S%20CoV-2/Fact%20S heets/302-3801%20S ARS-COV-2%20PATIEN T%20FACT%20SHEET.p df Lab Interpretation Normal (test code = 47701-5) [facility]2022-04-13 17:25:46 Test Item Value Reference Interpretation Comments Range SARS-COV2/RT-PCR Negative Negative The SARS-Co V-2 (test code = target nucleic 64414-5) acids are not detected in thi s [...] revoked sooner. Fact Sheet for Healthcare Providers: https://www.License[employer]/Documents/Xp ert%20Xpress%20SAR S%20CoV-2/Fact%20S heets/302-3802%20S ARS-COV-2%20HEALTH CARE%20PROVIDERS%2 0FACT%20SHEET.pdf Fact Sheet for Healthcare Patients: https://www.[employer]/Documents/Xp ert%20Xpress%20SAR S%20CoV-2/Fact%20S heets/302-3801%20S ARS-COV-2%20PATIEN T%20FACT%20SHEET.p df Lab Interpretation Normal (test code = 89040-1) [facility])2022-04-13 17:25:46 Test Item Value Reference Range Interpretation Comments SARS-COV2/RT-PCR Negative Negative The SARS-Co V-2 target (test code = nucleic acids a re not 6115905) detected in thi s specimen. Negative result [...] revoked sooner. Fact Sheet for Healthcare Providers: https://www.[employer] m/Documents/Xpert%20Xpress%20SARS%20CoV-2/Fact%20Sheets/302-3802%62WMNY-LOJ-0%20 HEALTHCARE%20PROVIDERS%20FACT%20SHEET.pdf Fact Sheet for Healthcare Patients: https://www.Seakeeper/Documents/Xpert%20Xp ress%20SARS%20CoV-2/Fact%20Sheets/302-2357%86SOZJ-TLW-4%20PATIENT%20FACT%20SHEET .pdfBLOOD [id number] 17:00:19 Test Item Value Reference Range Interpretation Comments CULTURE (BEAKER) (test No growth in 5 days code = 1095) BLOOD [id number] 17:00:19 Test Item Value Reference Range Interpretation Comments CULTURE (BEAKER) (test No growth in 5 days code = 1095) POC-Glucose [id number] 15:34:27 Test Item Value Reference Range Interpretation Comments POC-Glucose Meter (test 129 mg/dL 70-110 H : TE STED AT [facility] code = 1538) [address] [place] [address], 770 30: Reactor Kettle Operator/Techni aldo ID = [id number] for Desmond, Lina Lab Interpretation (test Abnormal code = 63610-1) [facility]-Glucose [id number] 15:34:27 Test Item Value Reference Range Interpretation Comments POC-Glucose Meter (test 129 mg/dL 70-110 H : TE STED AT [facility] code = 1538) [address] [place] [address], 770 30: Reactor Kettle Operator/Techni aldo ID = [id number] for Desmond, Lina Lab Interpretation (test Abnormal code = 70761-1) [facility] [id number] 15:34:27 Test Item Value Reference Range Interpretation Comments POC-Glucose Meter (test 129 mg/dL 70-110 H : TE STED AT [facility] code = 1538) [address] [place] [address], 770 30: Reactor Kettle Operator/Techni aldo ID = [id number] for Desmond, Lina Lab Interpretation (test Abnormal code = 29821-9) [facility]-Glucose [id number] 15:34:27 Test Item Value Reference Range Interpretation Comments POC-Glucose Meter (test 129 mg/dL 70-110 H : TE STED AT [facility] code = 1538) [address] [place] [address], 770 30: Reactor Kettle Operator/Techni aldo ID = [id number] for Desmond, Lina Lab Interpretation (test Abnormal code = 76628-5) [facility] [id number] 15:34:27 Test Item Value Reference Range Interpretation Comments POC-Glucose Meter (test 129 mg/dL 70-110 H : TE STED AT [facility] code = 1538) [address] [facility], 770 30: Reactor Kettle Operator/Techni aldo ID = [id number] for Desmond, Lina Lab Interpretation (test Abnormal code = 23244-3) [facility] [id number] 15:34:27 Test Item Value Reference Range Interpretation Comments POC-Glucose Meter (test 129 mg/dL 70-110 H : TE STED AT [facility] code = 1538) [address] [place] [address], 770 30: Reactor Kettle Operator/Techni aldo ID = [id number] for Desmond, Lina Lab Interpretation (test Abnormal code = 85903-3) [facility] chloa4863-74-10 15:34:27 Test Item Value Reference Range Interpretation Comments POC-Glucose Meter (test 129 mg/dL 70-110 H : TE STED AT [facility] code = 1538) [address] [place] [address], 770 30: Reactor Kettle Operator/Techni aldo ID = [id number] for DesmondMelida pritchardlyn Lab Interpretation (test Abnormal code = 51927-2) [facility] [id number] 15:34:27 Test Item Value Reference Range Interpretation Comments POC-GLUCOSE METER 129 mg/dL 70-110 H : TESTED A T [facility] 6720 (BEAKER) (test code = [facility], 1538) 20813: Reactor Kettle Operator/Techni aldo ID = [id number] for Br yant, Lina POCT-GLUCOSE [id number] 11:44:07 Test Item Value Reference Range Interpretation Comments POC-GLUCOSE METER 118 mg/dL 70-110 H : TESTED A T [facility] 6720 (BEAKER) (test code = [facility], 1538) 30179: Reactor Kettle Operator/Techni aldo ID = [id number] for Br yant, Lina POCT-GLUCOSE [id number] 08:00:15 Test Item Value Reference Range Interpretation Comments POC-GLUCOSE METER 114 mg/dL 70-110 H : TESTED A T [facility] 6720 (BEAKER) (test code = [place] [facility], 1538) 59987: Reactor Kettle Operator/Techni aldo ID = [id number] for Lina Dotson [id number] 05:48:59 Test Item Value Reference Range Interpretation Comments MAGNESIUM (BEAKER) 2.0 mg/dL 1.6-2.6 Specimen slightly (test code = 627) hemolyzed Reactor Kettle Operator ID - TOÑITO [id number] 05:48:59 Test Item Value Reference Range Interpretation Comments PHOSPHORUS (BEAKER) 3.9 mg/dL 2.3-4.7 Specimen slightly (test code = 604) hemolyzed Reactor Kettle Operator ID - TOÑITO LBASIC METABOLIC [id number] 05:48:59 Test Item Value Reference Range Interpretation [...] not appl icable for dialysis patien ts Reactor Kettle Operator ID - PIAYA LCBC (HEMOGRAM ONLY)2022-04-13 04:52:27 [...] 0-0 (BEAKER) (test code = 413) POCT-GLUCOSE [id number] 21:03:16 Test Item Value Reference Range Interpretation Comments POC-GLUCOSE METER 111 mg/dL 70-110 H : TESTED A T [facility] 6720 (BEAKER) (test code = [place] [facility], 1538) 74768: Reactor Kettle Operator/Techni aldo ID = [id number] for Sivan Etienne POCT-GLUCOSE [id number] 15:53:40 Test Item Value Reference Range Interpretation Comments POC-GLUCOSE METER 133 mg/dL 70-110 H : TESTED A T [facility] 6720 (BEAKER) (test [facility], = 1538) 11573: Reactor Kettle Operator/Techni aldo ID = [id number] for SANDRA Bradshaw GUERRERO POCT-GLUCOSE [id number] 12:54:17 Test Item Value Reference Range Interpretation Comments POC-GLUCOSE METER 130 mg/dL 70-110 H : TESTED A T [facility] 6720 (BEAKER) (test code [facility], = 1538) 57556: Reactor Kettle Operator/Techni aldo ID = [id number] for SANDRA Bradshaw GUERRERO POCT-GLUCOSE [id number] 08:18:20 Test Item Value Reference Range Interpretation Comments POC-GLUCOSE METER 116 mg/dL 70-110 H : TESTED A T [facility] 6720 (BEAKER) (test code [facility], = 1538) 08641: Reactor Kettle Operator/Techni aldo ID = [id number] for SANDRA Bradshaw GUERRERO BASIC METABOLIC [id number] 04:23:08 Test Item Value Reference Range Interpretation [...] not appl icable for dialysis patien ts Reactor Kettle Operator ID - ELVIN [id number] 04:23:08 Test Item Value Reference Range Interpretation Comments MAGNESIUM (BEAKER) (test code = 2.0 mg/dL 1.6-2.6 627) Reactor Kettle Operator ID Carlo OCONNOR [id number] 04:23:08 Test Item Value Reference Range Interpretation Comments PHOSPHORUS (BEAKER) (test code = 2.6 mg/dL 2.3-4.7 604) Reactor Kettle Operator ID Carlo OCONNOR WCBC (HEMOGRAM ONLY)2022-04-12 04:05:05 [...] 0-0 (BEAKER) (test code = 413) POCT-GLUCOSE [id number] 20:52:48 Test Item Value Reference Range Interpretation Comments POC-GLUCOSE METER 151 mg/dL 70-110 H : TESTED A T [facility] 6720 (BEAKER) (test code = [place], 1538) 31712: Reactor Kettle Operator/Techni aldo ID = [id number] for SLIM VICTOR POCT-GLUCOSE [id number] 16:09:14 Test Item Value Reference Range Interpretation Comments POC-GLUCOSE METER 130 mg/dL 70-110 H : TESTED A T [facility] 6720 (BEAKER) (test code = [facility], 1538) 60652: Reactor Kettle Operator/Techni aldo ID = [id number] for Ruslan Powell POCT-GLUCOSE [id number] 11:25:47 Test Item Value Reference Range Interpretation Comments POC-GLUCOSE METER 99 mg/dL 70-110 : TESTED A T [facility] 6720 (BEAKER) (test code = [facility], 1538) 96049: Reactor Kettle Operator/Techni aldo ID = [id number] for Ruslan Magana Urine [id number] 08:48:43 Test Item Value Reference Range Interpretation Comments Result (test code = 6463-4) No growth [facility] [id number] 08:48:43 Test Item Value Reference Range Interpretation Comments Result (test code = 6463-4) No growth [facility] [id number] 08:48:43 Test Item Value Reference Range Interpretation Comments Result (test code = 6463-4) No growth [facility] [id number] 08:48:43 Test Item Value Reference Range Interpretation Comments Result (test code = 6463-4) No growth [facility] [id number] 08:48:43 Test Item Value Reference Range Interpretation Comments Result (test code = 6463-4) No growth [facility] [id number] 08:48:43 Test Item Value Reference Range Interpretation Comments Result (test code = 6463-4) No growth [facility] [id number] 08:48:43 Test Item Value Reference Range Interpretation Comments Result (test code = 6463-4) No growth [facility] [id number] 08:48:43 Test Item Value Reference Range Interpretation Comments CULTURE (BEAKER) (test code = 1095) No growth POCT-GLUCOSE [id number] 07:40:08 Test Item Value Reference Range Interpretation Comments POC-GLUCOSE METER 96 mg/dL 70-110 : TESTED A T [facility] 6720 (BEAKER) (test code = [place], 1538) 00172: Reactor Kettle Operator/Techni aldo ID = [id number] for Ruslan Magana [id number] 06:30:09 Test Item Value Reference Range Interpretation Comments PHOSPHORUS (BEAKER) (test code = 2.2 mg/dL 2.3-4.7 L 604) Reactor Kettle Operator ID - MIMI GBASIC METABOLIC [id number] 06:30:08 Test Item Value Reference Range Interpretation [...] not appl icable for dialysis patien ts Reactor Kettle Operator ID - MIMI [id number] 06:30:08 Test Item Value Reference Range Interpretation Comments MAGNESIUM (BEAKER) (test code = 2.1 mg/dL 1.6-2.6 627) Reactor Kettle Operator ID - MIMI GCBC (HEMOGRAM ONLY)2022-04-11 05:58:00 [...] 0-0 (BEAKER) (test code = 413) POCT-GLUCOSE [id number] 21:31:00 Test Item Value Reference Range Interpretation Comments POC-GLUCOSE METER 117 mg/dL 70-110 H : TESTED A T [facility] 6720 (BEAKER) (test code = [facility], 153) 35962: Reactor Kettle Operator/Techni aldo ID = [id number] for SLIM VICTOR POCT-GLUCOSE [id number] 16:59:44 Test Item Value Reference Range Interpretation Comments POC-GLUCOSE METER 110 mg/dL 70-110 : TESTED A T [facility] 6720 (BEAKER) (test code = [facility], 153) 14609: Reactor Kettle Operator/Techni aldo ID = [id number] for RA MOS, DARLINE POCT-GLUCOSE [id number] 11:22:31 Test Item Value Reference Range Interpretation Comments POC-GLUCOSE METER 156 mg/dL 70-110 H : TESTED A T [facility] 6720 (BEAKER) (test code = [place], 1538) 02172: Reactor Kettle Operator/Techni aldo ID = [id number] for RA MOS, DARLINE POCT-GLUCOSE [id number] 07:51:14 Test Item Value Reference Range Interpretation Comments POC-GLUCOSE METER 113 mg/dL 70-110 H : TESTED A T [facility] 6720 (BEAKER) (test code = [place] [facility], 1538) 76155: Reactor Kettle Operator/Techni aldo ID = [id number] for RA MOS, DARLINE [id number] 06:43:13 Test Item Value Reference Range Interpretation Comments MAGNESIUM (BEAKER) 2.0 mg/dL 1.6-2.6 Specimen slightly (test code = 627) hemolyzed Reactor Kettle Operator ID - HUMBLE [id number] 06:43:13 Test Item Value Reference Range Interpretation Comments PHOSPHORUS (BEAKER) 2.1 mg/dL 2.3-4.7 L Specimen slightly (test code = 604) hemolyzed Reactor Kettle Operator ID - HUMBLE MBASIC METABOLIC [id number] 06:43:13 Test Item Value Reference Range Interpretation [...] not appl icable for dialysis patien ts Reactor Kettle Operator ID - HUMBLE MCBC (HEMOGRAM ONLY)2022-04-10 06:18:00 [...] (BEAKER) (test code = 413) Prepare Leuko-Red [id number] 23:54:00 Test Item Value Reference Range Interpretation Comments CROSSMATCH (test code = 2264) COMPATIBLE Unit ABO (test code = O Pos 1483946) UNIT NUMBER (test code = [id number] 934-0) Status (test code = 9733200) TX_TIMEINCHART Blood Bank Product (test code RED BLOOD CELLS = 2263) PRODUCT CODE (test code = [id number] 933-2) [facility] [id number] 23:54:00 Test Item Value Reference Range Interpretation Comments CROSSMATCH (test code = 2264) COMPATIBLE Unit ABO (test code = O Pos 5812514) UNIT NUMBER (test code = [id number] 934-0) Status (test code = 8335584) TX_TIMEINCHART Blood Bank Product (test code RED BLOOD CELLS = 2263) PRODUCT CODE (test code = [id number] 933-2) [facility]uko-Red [id number] 23:54:00 Test Item Value Reference Range Interpretation Comments CROSSMATCH (test code = 2264) COMPATIBLE Unit ABO (test code = O Pos 9197954) UNIT NUMBER (test code = [id number] 934-0) Status (test code = 9544486) [facility] Blood [facility] Product (test code RED BLOOD CELLS = 2263) PRODUCT CODE (test code = [id number] 933-2) [facility] Leuko-Red [id number] 23:54:00 Test Item Value Reference Range Interpretation Comments CROSSMATCH (test code = 2264) COMPATIBLE Unit ABO (test code = O Pos 5709370) UNIT NUMBER (test code = [id number] 934-0) Status (test code = 1611948) TX_TIMEINCHART Blood Bank Product (test code RED BLOOD CELLS = 2263) PRODUCT CODE (test code = Q8291L66 933-2) [facility] Leuko-Red [id number] 23:54:00 Test Item Value Reference Range Interpretation Comments CROSSMATCH (test code = 2264) COMPATIBLE Unit ABO (test code = O Pos 5180441) UNIT NUMBER (test code = [id number] 934-0) Status (test code = 3194140) TX_TIMEINCHART Blood Bank Product (test code RED BLOOD CELLS = 2263) PRODUCT CODE (test code = [id number] 933-2) [facility] Leuko-Red [id number] 23:54:00 Test Item Value Reference Range Interpretation Comments CROSSMATCH (test code = 2264) COMPATIBLE Unit ABO (test code = O Pos 3249543) UNIT NUMBER (test code = [id number] 934-0) Status (test code = 4262603) [facility] Blood Bank Product (test code RED BLOOD CELLS = 2263) PRODUCT CODE (test code = V4732W28 933-2) [facility] Leuko-Red [id number] 23:54:00 Test Item Value Reference Range Interpretation Comments CROSSMATCH (test code = 2264) COMPATIBLE Unit ABO (test code = O Pos 2084838) UNIT NUMBER (test code = [id number] 934-0) Status (test code = 2036593) [facility] Blood Bank Product (test code RED BLOOD CELLS = 2263) PRODUCT CODE (test code = [id number] 933-2) [facility] [id number] 23:08:16 Test Item Value Reference Range Interpretation Comments POC-GLUCOSE METER 119 mg/dL 70-110 H : TESTED A T [facility] 6720 (BEAKER) (test code = [facility], 1538) 94954: Reactor Kettle Operator/Techni aldo ID = [id number] for Paris Lipscomb POCT-GLUCOSE [id number] 17:18:13 Test Item Value Reference Range Interpretation Comments POC-GLUCOSE METER 172 mg/dL 70-110 H : TESTED A T [facility] 6720 (BEAKER) (test code = [facility], 1538) 52128: Reactor Kettle Operator/Techni alod ID = [id number] for WINNIE RAMÍREZ CBC (HEMOGRAM ONLY)2022-04-09 16:39:21 [...] 0-0 (BEAKER) (test code = 413) POCT-GLUCOSE [id number] 11:54:11 Test Item Value Reference Range Interpretation Comments POC-GLUCOSE METER 182 mg/dL 70-110 H : TESTED A T [facility] 6720 (BEAKER) (test code = [facility], 1538) 56820: Reactor Kettle Operator/Techni aldo ID = [id number] for DE NNWINNIE ROTHMAN POCT-GLUCOSE [id number] 07:49:48 Test Item Value Reference Range Interpretation Comments POC-GLUCOSE METER 139 mg/dL 70-110 H : TESTED A T [facility] 6720 (BEAKER) (test code = [facility], 1538) 77813: Reactor Kettle Operator/Techni aldo ID = [id number] for DE NNIS, WINNIE Venous doppler legs [id number] 07:38:03Ejection FractionSLEH ECHO HEARTLAB MKCKESSON [facility] bilateral 2022-04-09 07:38:03Ejection FractionSLEH ECHO HEARTLAB MKCKESSON [facility] legs [id number] 07:38:03Ejection FractionSLEH ECHO HEARTLAB MKCKESSON [facility] legs kltblpspx2527-58-48 07:38:03Ejection FractionSLEH ECHO HEARTLAB MKCKESSON [facility] bilateral 2022-04-09 07:38:03Ejection FractionSLEH [facility] [id number] 07:38:03Ejection FractionSLEH ECHO [facility]ARTLAB [facility] legs [id number] 07:38:03Ejection FractionSLEH ECHO HEARTLAB [facility]2022-07-29 06:41:32 Test Item Value Reference Range Interpretation Comments PHOSPHORUS (BEAKER) (test code = 2.5 mg/dL 2.3-4.7 604) Reactor Kettle Operator UNA OCONNOR WBASIC METABOLIC [id number] 06:41:31 Test Item Value Reference Range Interpretation [...] not appl icable for dialysis patien ts Reactor Kettle Operator UNA OCONNOR [id number] 06:41:31 Test Item Value Reference Range Interpretation Comments MAGNESIUM (BEAKER) (test code = 4.3 mg/dL 1.6-2.6 H 627) Reactor Kettle Operator ID - ELVIN WCBC W/PLT COUNT & AUTO [id number] 06:12:33 Test Item Value Reference Range Interpretation [...] PERCENT (BEAKER) (test code = 2801) POCT-GLUCOSE [id number] 00:19:02 Test Item Value Reference Range Interpretation Comments POC-GLUCOSE METER 144 mg/dL 70-110 H : TESTED A T [facility] 6720 (BEAKER) (test code = [place], 1538) 09515: Reactor Kettle Operator/Techni aldo ID = [id number] for Sp Ashwin morales RAD, PELVIS, 1 OR 2 [id number] 23:03:00Reason for exam:->postop R hip hemion floor as not done in pacuShould this be performed at the bedside?->Yes [facility] : 1950 Sex: FFINAL REPORT RAD, [...] Peralta Verified Date/Time: 04/08/2022 23:03:37 BASIC METABOLIC [id number] 22:31:44 Test Item Value Reference Range Interpretation [...] not appl icable for dialysis patien ts Reactor Kettle Operator ID - [id number] 22:31:14 Test Item Value Reference Range Interpretation Comments MAGNESIUM (BEAKER) (test code = 1.6 mg/dL 1.6-2.6 627) Reactor Kettle Operator ID - [id number] 22:31:14 Test Item Value Reference Range Interpretation Comments PHOSPHORUS (BEAKER) (test code = 2.0 mg/dL 2.3-4.7 L 604) Reactor Kettle Operator ID - BSLACTIC ACID, [id number] 22:23:33 Test Item Value Reference Range Interpretation Comments LACTATE BLOOD VENOUS (2) (BEAKER) 1.96 mmol/L 0.50-2.20 (test code = 2872) Reactor Kettle Operator ID - BSCBC (HEMOGRAM ONLY)2022-04-08 22:07:28 Test [...] = 413) CBC W/PLT COUNT & AUTO [id number] 18:40:26 Test Item Value Reference Range Interpretation [...] (BEAKER) (test code = 2801) LACTIC ACID, [id number] 16:35:30 Test Item Value Reference Range Interpretation Comments LACTATE BLOOD VENOUS (2) (BEAKER) 3.04 mmol/L 0.50-2.20 H (test code = 7955) Reactor Kettle Operator ID - BSBASIC METABOLIC [id number] 16:24:06 Test Item Value Reference Range Interpretation [...] not appl icable for dialysis patien ts Reactor Kettle Operator ID - ADMINRAD, CHEST, 1 VIEW, NON [id number] 16:12:00Reason for exam:->dyspneaShould this be performed at the bedside?->Yes [facility] 1950 Sex: FFINAL REPORT CLINICAL HISTORY: dyspnea TECHNIQUE: 1 view of the chest. COMPARISON: None IMPRESSION: There are no focal infiltrates or effusions. The cardiomediastinal silhouette is magnified by technique. The osseous structures appear intact. Signed: Derrick Ignacio Verified Date/Time: 04/08/2022 16:12:21 Reading Location: [facility] Radiology Reading Room POCT-GLUCOSE METER 2022-04-08 15:31:41 Test Item Value Reference Range Interpretation Comments POC-GLUCOSE METER 208 mg/dL 70-110 H : TESTED A T [facility] 6720 (Orc[employer] EnergyAKER) (test code = [employer] [facility], 1538) 05498: Reactor Kettle Operator/Techni aldo ID = [id number] for Ma ster, Evangelina POCT-GLUCOSE [id number] 11:42:48 Test Item Value Reference Range Interpretation Comments POC-GLUCOSE METER 240 mg/dL 70-110 H : TESTED A T [facility] 6720 ([employer]) (test code = [employer] [place], 1538) [address]: Reactor Kettle Operator/Techni aldo ID = [id number] for Ma ster, Evangelina CT, EXTREMITY, LOWER WITHOUT CONTRAST, [id number] 08:41:00Unlisted Reason for Exam - Click Yes and Enter Reason Below->Yesevaluate for fractureUnlisted Reason for Exam->evaluate for fracture with cement extravasationPlease specify:->Femur [facility] : 1950 Sex: FFINAL REPORT CT [...] Arrington Verified Date/Time: 04/08/2022 08:41:48 Reading Location: [address] Ortho Consult Reading Room -GLUCOSE [id number] 17:39:33 Test Item Value Reference Range Interpretation Comments POC-GLUCOSE METER 102 mg/dL 70-110 : TESTED A T [facility] 6720 (LIA) (test code = [place], 1538) 22878: Reactor Kettle Operator/Techni aldo ID = [id number] for Wi lliams, Joana RAD, PELVIS, 1 OR 2 [id number] 16:39:00Reason for exam:->[facility] : 1950 Sex: FFINAL REPORT Pelvis History provided: Right hip arthroplasty Components of right hip arthroplasty are in place. Left hip intact. Signed: Matt Juárez Verified Date/Time: 6:39:06 Reading Location: [facility] Imaging Reading Room [place] [address] POCT-GLUCOSE [id number] 10:01:19 Test Item Value Reference Range Interpretation Comments POC-GLUCOSE METER 111 mg/dL 70-110 H : TESTED Galina Brown [facility] 67[address] (BEAKER) (test code = [place], 1538) [address]: Reactor Kettle Operator/Techni aldo ID = [id number] for IMELDA JC CBC W/PLT COUNT & AUTO [id number] 07:15:22 Test Item Value Reference Range Interpretation [...] = 2801) Urinalysis w/Microscopic + Reflex to [id number] 06:45:42 Test Item Value Reference Range Interpretation Comments Color, UA (test code Yellow = 5778-6) Clarity, UA (test Clear code = 5767-9) Specific [place], UA 1.026 1.001-1.035 (test code = 5811-5) pH, UA (test code = 6.5 5.0-8.0 5803-2) Protein, UA (test 20 mg/dL Negative A code = 19738-3) Glucose, UA (test Negative Negative code = 365) Ketones, UA (test Negative Negative code = 2514-8) Bilirubin, UA (test Negative Negative code = 84328-6) Blood, UA (test code Trace Negative A = 37964-1) Nitrite, UA (test Negative Negative code = 5802-4) Leukocytes, UA (test Moderate Negative A code = 5799-2) Urobilinogen, UA 0.2 mg/dL 0.2-1.0 (test code = 94365-8) RBC, UA (test code = 12 See_Comment [Autom ated 05424-1) message] The system which generated this result [...] Bacteria, UA (test None Seen code = 40516-7) Mucus (test code = Occasional 8247-9) Squam Epithel, UA <1 See_Comment [Automate d (test code = 38079-9) messag e] The system which generated this result transmitted reference range : /HPF. The reference range was not used to interpret this result as normal/abnormal . Crystals, Urine (test None Seen code = 61118-0) Specimen Source (test code = 2795) TORRES (test code = TORRES) Reactor Kettle Operator ID - [auto]Reactor Kettle Operator ID - tech Lab Interpretation Abnormal (test code = 29581-7) [facility] Reflex to Culture 2022-04-07 06:45:42 Test Item Value Reference Range Interpretation Comments Color, UA (test code Yellow = 5778-6) Clarity, UA (test Clear code = 5767-9) Specific [place], UA 1.026 1.001-1.035 (test code = 5811-5) pH, UA (test code = 6.5 5.0-8.0 5803-2) Protein, UA (test 20 mg/dL Negative A code = 64656-9) Glucose, UA (test Negative Negative code = 365) Ketones, UA (test Negative Negative code = 2514-8) Bilirubin, UA (test Negative Negative code = 66244-1) Blood, UA (test code Trace Negative A = 33801-2) Nitrite, UA (test Negative Negative code = 5802-4) Leukocytes, UA (test Moderate Negative A code = 5799-2) Urobilinogen, UA 0.2 mg/dL 0.2-1.0 (test code = 53494-0) RBC, UA (test code = 12 See_Comment [Autom ated 68663-2) message] The system which generated this result [...] Bacteria, UA (test None Seen code = 50258-8) Mucus (test code = Occasional 8247-9) Squam Epithel, UA <1 See_Comment [Automate d (test code = 10681-3) messag e] The system which generated this result transmitted reference range : /HPF. The reference range was not used to interpret this result as normal/abnormal . Crystals, Urine (test None Seen code = 66680-5) Specimen Source (test code = 2795) TORRES (test code = TORRES) Reactor Kettle Operator ID - [auto]Reactor Kettle Operator ID - tech Lab Interpretation Abnormal (test code = 03828-9) [facility] Reflex to Culture 2022-04-07 06:45:42 Test Item Value Reference Range Interpretation Comments Color, UA (test code Yellow = 5778-6) Clarity, UA (test Clear code = 5767-9) Specific [place], UA 1.026 1.001-1.035 (test code = 5811-5) pH, UA (test code = 6.5 5.0-8.0 5803-2) Protein, UA (test 20 mg/dL Negative A code = 35381-1) Glucose, UA (test Negative Negative code = 365) Ketones, UA (test Negative Negative code = 2514-8) Bilirubin, UA (test Negative Negative code = 17363-1) Blood, UA (test code Trace Negative A = 11661-2) Nitrite, UA (test Negative Negative code = 5802-4) Leukocytes, UA (test Moderate Negative A code = 5799-2) Urobilinogen, UA 0.2 mg/dL 0.2-1.0 (test code = 99999-3) RBC, UA (test code = 12 See_Comment [Autom ated 53208-9) message] The system which generated this result [...] Bacteria, UA (test None Seen code = 45122-5) Mucus (test code = Occasional 8247-9) Squam Epithel, UA <1 See_Comment [Automate d (test code = 87495-5) messag e] The system which generated this result transmitted reference range : /HPF. The reference range was not used to interpret this result as normal/abnormal . Crystals, Urine (test None Seen code = 84720-7) Specimen Source (test code = 2795) TORRES (test code = TORRES) Reactor Kettle Operator ID - [auto]Reactor Kettle Operator ID - tech Lab Interpretation Abnormal (test code = 38132-3) [facility] Reflex to Culture 2022-04-07 06:45:42 Test Item Value Reference Range Interpretation Comments Color, UA (test code Yellow = 5778-6) Clarity, UA (test Clear code = 5767-9) Specific [place], UA 1.026 1.001-1.035 (test code = 5811-5) pH, UA (test code = 6.5 5.0-8.0 5803-2) Protein, UA (test 20 mg/dL Negative A code = 84079-3) Glucose, UA (test Negative Negative code = 365) Ketones, UA (test Negative Negative code = 2514-8) Bilirubin, UA (test Negative Negative code = 34744-4) Blood, UA (test code Trace Negative A = 05204-1) Nitrite, UA (test Negative Negative code = 5802-4) Leukocytes, UA (test Moderate Negative A code = 5799-2) Urobilinogen, UA 0.2 mg/dL 0.2-1.0 (test code = 78661-0) RBC, UA (test code = 12 See_Comment [Autom ated 53228-0) message] The system which generated this result [...] Bacteria, UA (test None Seen code = 94215-7) Mucus (test code = Occasional 8247-9) Squam Epithel, UA See_Comment [Automate d (test code = 54462-0) messag e] The system which generated this result transmitted reference range : /HPF. The reference range was not used to interpret this result as normal/abnormal . Crystals, Urine (test None Seen code = 03340-6) Specimen Source (test code = 2795) TORRES (test code = TORRES) Reactor Kettle Operator ID - [auto]Reactor Kettle Operator ID - tech Lab Interpretation Abnormal (test code = 38692-3) [facility] Reflex to Culture 2022-04-07 06:45:42 Test Item Value Reference Range Interpretation Comments Color, UA (test code Yellow = 5778-6) Clarity, UA (test Clear code = 5767-9) Specific [place], UA 1.026 1.001-1.035 (test code = 5811-5) pH, UA (test code = 6.5 5.0-8.0 5803-2) Protein, UA (test 20 mg/dL Negative A code = 73402-4) Glucose, UA (test Negative Negative code = 365) Ketones, UA (test Negative Negative code = 2514-8) Bilirubin, UA (test Negative Negative code = 53805-8) Blood, UA (test code Trace Negative A = 77766-0) Nitrite, UA (test Negative Negative code = 5802-4) Leukocytes, UA (test Moderate Negative A code = 5799-2) Urobilinogen, UA 0.2 mg/dL 0.2-1.0 (test code = 29653-9) RBC, UA (test code = 12 See_Comment [Autom ated 28782-4) message] The system which generated this result [...] Bacteria, UA (test None Seen code = 32793-5) Mucus (test code = Occasional 8247-9) Squam Epithel, UA See_Comment [Automate d (test code = 35103-2) messag e] The system which generated this result transmitted reference range : /HPF. The reference range was not used to interpret this result as normal/abnormal . Crystals, Urine (test None Seen code = 77508-5) Specimen Source (test code = 2795) TORRES (test code = TORRES) Reactor Kettle Operator ID - [auto]Reactor Kettle Operator ID - tech Lab Interpretation Abnormal (test code = 44032-3) [facility] + Reflex to Culture 2022-04-07 06:45:42 Test Item Value Reference Range Interpretation Comments Color, UA (test code Yellow = 5778-6) Clarity, UA (test Clear code = 5767-9) Specific [place], UA 1.026 1.001-1.035 (test code = 5811-5) pH, UA (test code = 6.5 5.0-8.0 5803-2) Protein, UA (test 20 mg/dL Negative A code = 49905-6) Glucose, UA (test Negative Negative code = 365) Ketones, UA (test Negative Negative code = 2514-8) Bilirubin, UA (test Negative Negative code = 16480-9) Blood, UA (test code Trace Negative A = 29550-3) Nitrite, UA (test Negative Negative code = 5802-4) Leukocytes, UA (test Moderate Negative A code = 5799-2) Urobilinogen, UA 0.2 mg/dL 0.2-1.0 (test code = 35294-7) RBC, UA (test code = 12 See_Comment [Autom ated 87137-5) message] The system which generated this result [...] Bacteria, UA (test None Seen code = 82369-0) Mucus (test code = Occasional 8247-9) Squam Epithel, UA See_Comment [Automate d (test code = 21246-4) messag e] The system which generated this result transmitted reference range : /HPF. The reference range was not used to interpret this result as normal/abnormal . Crystals, Urine (test None Seen code = 86860-5) Specimen Source (test code = 2795) TORRES (test code = TORRES) Reactor Kettle Operator ID - [auto]Reactor Kettle Operator ID - tech Lab Interpretation Abnormal (test code = 96933-7) [facility] + Reflex to Culture 2022-04-07 06:45:42 Test Item Value Reference Range Interpretation Comments Color, UA (test code Yellow = 5778-6) Clarity, UA (test Clear code = 5767-9) Specific [place], UA 1.026 1.001-1.035 (test code = 5811-5) pH, UA (test code = 6.5 5.0-8.0 5803-2) Protein, UA (test 20 mg/dL Negative A code = 04493-6) Glucose, UA (test Negative Negative code = 365) Ketones, UA (test Negative Negative code = 2514-8) Bilirubin, UA (test Negative Negative code = 39803-7) Blood, UA (test code Trace Negative A = 29985-1) Nitrite, UA (test Negative Negative code = 5802-4) Leukocytes, UA (test Moderate Negative A code = 5799-2) Urobilinogen, UA 0.2 mg/dL 0.2-1.0 (test code = 05136-2) RBC, UA (test code = 12 See_Comment [Autom ated 73108-4) message] The system which generated this result [...] Bacteria, UA (test None Seen code = 09680-0) Mucus (test code = Occasional 8247-9) Squam Epithel, UA See_Comment [Automate d (test code = 59203-3) javier [place]] The system which generated this result transmitted reference range : /HPF. The reference range was not used to interpret this result as normal/abnormal . Crystals, Urine (test None Seen code = 65304-5) Specimen Source (test code = 2795) TORRES (test code = TORRES) Reactor Kettle Operator ID - [auto]Reactor Kettle Operator ID - tech Lab Interpretation Abnormal (test code = 71838-7) [facility]LEX URINE [id number] 06:45:42 Test Item Value Reference Range Interpretation [...] = 1521) SOURCE(BEAKER) (test code = 2795) Reactor Kettle Operator ID - [auto]Reactor Kettle Operator ID - techBASIC METABOLIC [id number] 06:11:49 Test Item Value Reference Range Interpretation [...] S NOT APPLICABLE FOR DIALYSIS PATIEN TS. Reactor Kettle Operator ID - ELVIN ARS-COV2/RT-PCR ([facility]2022-04-07 04:44:08 Test Item Value Reference Range Interpretation Comments SARS-COV2/RT-PCR (test Negative Not Detected, Negative, code = 1331149) See external report for linked test SARS-COV-2 [facility] (test code = 1522148) Negative result for this test determines that [...] of the Act.Fact Sheet for Healthcare Prov iders:https://www.[employer]/sites/default/files/product/documents/Fact_Sheet_HC _Fwihpqdoz_Gywm_RFVZ-FoD-6.pdfFact Sheet for Healthcare Patients:https://www.[employer]/sites/default/files/product/docume nts/Bvbq_Zgjeg_Oopylhrb_Qkkj_ZHWR-QrP-8.pdfPerforming Laboratory:[address] [address]XLDU. METABOLIC PANEL (80[address])2021-07-24 17:14:29 Test Item Value Reference Range Interpretation Comments NA (test code = 139 mmol/L 135-145 1747374179) K (test code = 4.3 mmol/L 3.5-5.0 1943992386) CL (test code = 104 mmol/L 98-108 1893438516) CO2 TOTAL (test code = 24 mmol/L 23-31 3793709847) AGAP (test code = 2-16 3616701524) BUN (test code = 18 mg/dL 7-23 7798153867) GLUCOSE (test code = 104 mg/dL 70-110 3969593848) CREATININE (test code = 1.39 mg/dL 0.50-1.04 H 2042824083) TOTAL BILI (test code = 0.4 mg/dL 0.1-1.0 4184907338) CALCIUM (test code = 9.6 mg/dL 8.6-10.6 7689328289) T PROTEIN (test code = 8.4 g/dL 6.3-8.2 H 5978095065) ALBUMIN (test code = 4.6 g/dL 3.5-5.0 2198861171) ALK PHOS (test code = 93 U/L 34-122 5967236558) ALTv (test code = 44 U/L 5-35 H 1742-6) AST(SGOT) (test code = 48 U/L 13-40 H 9825118945) eGFR (test code = mL/min/1.73m2 7263283556) TORRES (test code = TORRES) Association of [...] tests). Lab Interpretation Abnormal (test code = 20641-7) [facility] 17:13:49 Test Item Value Reference Range Interpretation Comments LIPASE (test code = 4633018643) 266 U/L 0-220 H Lab Interpretation (test code = Abnormal 13141-4) [facility] BudaCBC WITH [id number] 17:03:27 Test Item Value Reference Range Interpretation [...] RDW-SD (test code = 48.4 fL 39.0-49.9 50986-9) RDW-CV (test code = 13.8 % 12.0-15.5 788-0) PLT (test code = See_Comment [Automated 777-3) message] The sy stem which generated this result transmitted reference range : 166 - 358 10*3/ ?L. The reference r becca was not used to interpret this result as normal/abnormal . MPV (test code = 9.1 fL 9.5-12.9 L 93088-6) NRBC/100 WBC (test See_Comment [Automat ed code = 2499286060) message] The system which generated this result transmitted reference range : 0.0 - 10.0 /100 WBCs. The refer ence range was not u sed to interpret th is result as normal/abnormal . NRBC x10^3 (test code <0.01 See_Comment [Auto mated = 1673034973) message] The s ystem which generated this result transmitted reference range : 10*3/?L. The reference range was not used to interpret this result as normal/abnormal . GRAN MAT (NEUT) % 64.8 % (test code = 770-8) IMM GRAN % (test code 0.90 % = 2167284687) LYMPH % (test code = 24.2 % 736-9) MONO % (test code = 8.2 % 5905-5) EOS % (test code = 1.4 % 713-8) BASO % (test code = 0.5 % 706-2) GRAN MAT x10^3(ANC) 5.59 10*3/uL 1.88-7.09 (test code = 7309310134) IMM GRAN x10^3 (test 0.08 10*3/uL 0.00-0.06 H code = 9576178610) LYMPH x10^3 (test code 2.09 10*3/uL 1.32-3.29 = 731-0) MONO x10^3 (test code 0.71 10*3/uL 0.33-0.92 = 742-7) EOS x10^3 (test code = 0.12 10*3/uL 0.03-0.39 711-2) BASO x10^3 (test code 0.04 10*3/uL 0.01-0.07 = 704-7) Lab Interpretation Abnormal (test code = 13716-4) [facility] metabolic [id number] 07:08:00 Test Item Value Reference Range Interpretation Comments Sodium (test code = 139 meq/L 456-548 5839-2) Potassium (test 4.1 meq/L 3.5-5.1 code = 2823-3) Chloride (test code 107 meq/L 98-107 = 2075-0) CO2 (test code = 25 meq/L 22-29 2027-9) BUN (test code = 13 mg/dL 7-21 3094-0) Creatinine (test 0.97 mg/dL 0.57-1.25 code = 2160-0) Glucose (test code 80 mg/dL 70-105 = 2345-7) Calcium (test code 8.9 mg/dL 8.4-10.2 = 36130-1) EGFR (test code = 56 mL/min/1.[address] [place] [address]-9) NOT ACCURATE CREATININE CLEARANCE IN PREDICTING GLOMERULAR FILTRATION RATE . ESTIMATED GFR I S NOT APPLICABLE FOR DIALYSIS PATIEN TSKenrick TORRES (test code = Reactor Kettle Operator ID - TORRES) TOÑITO Camacho [facility] function [id number] 07:08:00 Test Item Value Reference Range Interpretation Comments Protein, Total (test 6.9 See_Comment [Autom ated code = 2885-2) message] The system which generated this result transmit lane reference range : 6.0 - 8.3 gm/dL . The reference range was not u sed to interpret th is result as normal/abnormal . Albumin (test code = 3.6 g/dL 3.5-5 95193-5) Total Bilirubin (test 0.3 mg/dL 0.2-1.2 code = 1975-2) Bilirubin, Direct 0.2 mg/dL 0.1-0.5 (test code = 1967-7) Alkaline Phosphatase 56 U/L 40-150 (test code = 6768-6) AST (test code = 37 U/L 5-34 H 1920-8) ALT (test code = 50 U/L 6-55 1742-6) TORRES (test code = TORRES) Reactor Kettle Operator ID - TOÑITO Camacho Lab Interpretation Abnormal (test code = 79606-3) [facility] metabolic [id number] 07:08:00 Test Item Value Reference Range Interpretation Comments Sodium (test code = 139 meq/L 384-991 6171-2) Potassium (test 4.1 meq/L 3.5-5.1 code = 2823-3) Chloride (test code 107 meq/L 98-107 = 2075-0) CO2 (test code = 25 meq/L 22-29 2027-9) BUN (test code = 13 mg/dL 7-21 3094-0) Creatinine (test 0.97 mg/dL 0.57-1.25 code = 2160-0) Glucose (test code 80 mg/dL 70-105 = 2345-7) Calcium (test code 8.9 mg/dL 8.4-10.2 = 25274-6) EGFR (test code = 56 mL/min/1.[address] [place] [address]-6) NOT ACCURATE CREATININE CLEARANCE IN PREDICTING GLOMERULAR FILTRATION RATE . ESTIMATED GFR I S NOT APPLICABLE FOR DIALYSIS PATIEN TSKenrick TORRES (test code = Reactor Kettle Operator ID - TORRES) TOÑITO Camacho [facility] function [id number] 07:08:00 Test Item Value Reference Range Interpretation Comments Protein, Total (test 6.9 See_Comment [Autom ated code = 2885-2) message] The system which generated this result transmit lane reference range : 6.0 - 8.3 gm/dL . The reference range was not u sed to interpret th is result as normal/abnormal . Albumin (test code = 3.6 g/dL 3.5-5 77260-2) Total Bilirubin (test 0.3 mg/dL 0.2-1.2 code = 1974-2) Bilirubin, Direct 0.2 mg/dL 0.1-0.5 (test code = 1967-7) Alkaline Phosphatase 56 U/L 40-150 (test code = 6768-6) AST (test code = 37 U/L 5-34 H 1920-8) ALT (test code = 50 U/L 6-55 1742-6) TORRES (test code = TORRES) Reactor Kettle Operator ID - TOÑITO Camacho Lab Interpretation Abnormal (test code = 60282-3) [facility] [id number] 07:08:00 Test Item Value Reference Range Interpretation Comments Sodium (test code = 139 meq/L 537-451 6887-2) Potassium (test 4.1 meq/L 3.5-5.1 code = 2823-3) Chloride (test code 107 meq/L 98-107 = 2075-0) CO2 (test code = 25 meq/L 22-29 2028-9) BUN (test code = 13 mg/dL 7-21 3094-0) Creatinine (test 0.97 mg/dL 0.57-1.25 code = 2160-0) Glucose (test code 80 mg/dL 70-105 = 2345-7) Calcium (test code 8.9 mg/dL 8.4-10.2 = 34001-2) EGFR (test code = 56 mL/min/1.[address] [place] [address]-6) NOT ACCURATE CREATININE CLEARANCE IN PREDICTING GLOMERULAR FILTRATION RATE . ESTIMATED GFR I S NOT APPLICABLE FOR DIALYSIS PATIEN TS. TORRES (test code = Reactor Kettle Operator ID - TORRES) TOÑITO Camacho [facility] function [id number] 07:08:00 Test Item Value Reference Range Interpretation Comments Protein, Total (test 6.9 See_Comment [Autom ated code = 2885-2) message] The system which generated this result transmit lane reference range : 6.0 - 8.3 gm/dL . The reference range was not u sed to interpret th is result as normal/abnormal . Albumin (test code = 3.6 g/dL 3.5-5 92369-8) Total Bilirubin (test 0.3 mg/dL 0.2-1.2 code = 1974-2) Bilirubin, Direct 0.2 mg/dL 0.1-0.5 (test code = 1967-7) Alkaline Phosphatase 56 U/L 40-150 (test code = 6768-6) AST (test code = 37 U/L 5-34 H 1920-8) ALT (test code = 50 U/L 6-55 2-6) TORRES (test code = TORRES) Reactor Kettle Operator ID - TOÑITO Camacho Lab Interpretation Abnormal (test code = 54117-6) [facility] [id number] 07:08:00 Test Item Value Reference Range Interpretation Comments Sodium (test code = 139 meq/L 263-921 7800-2) Potassium (test 4.1 meq/L 3.5-5.1 code = 2823-3) Chloride (test code 107 meq/L 98-107 = 2075-0) CO2 (test code = 25 meq/L 22-29 8-9) BUN (test code = 13 mg/dL 7-21 3094-0) Creatinine (test 0.97 mg/dL 0.57-1.25 code = 2160-0) Glucose (test code 80 mg/dL 70-105 = 2345-7) Calcium (test code 8.9 mg/dL 8.4-10.2 = 35648-7) EGFR (test code = 56 mL/min/1.[address] [place] [address]-2) NOT ACCURATE CREATININE CLEARANCE IN PREDICTING GLOMERULAR FILTRATION RATE . ESTIMATED GFR I S NOT APPLICABLE FOR DIALYSIS PATIEN TS. TORRES (test code = Reactor Kettle Operator ID - TORRES) TOÑITO Camacho [facility] function [id number] 07:08:00 Test Item Value Reference Range Interpretation Comments Protein, Total (test 6.9 See_Comment [Autom ated code = 2885-2) message] The system which generated this result transmit lane reference range : 6.0 - 8.3 gm/dL . The reference range was not u sed to interpret th is result as normal/abnormal . Albumin (test code = 3.6 g/dL 3.5-5 82782-5) Total Bilirubin (test 0.3 mg/dL 0.2-1.2 code = 1975-2) Bilirubin, Direct 0.2 mg/dL 0.1-0.5 (test code = 1967-7) Alkaline Phosphatase 56 U/L 40-150 (test code = 6768-6) AST (test code = 37 U/L 5-34 H 1920-8) ALT (test code = 50 U/L 6-55 1742-6) TORRES (test code = TORRES) Reactor Kettle Operator ID - PIJOVANNI L Lab Interpretation Abnormal (test code = 61706-3) [facility]OLIC [id number] 07:08:00 Test Item Value Reference Range Interpretation [...] S NOT APPLICABLE FOR DIALYSIS PATIEN TS. Reactor Kettle Operator ID - PIAYA LHEPATIC FUNCTION [id number] 07:08:00 Test Item Value Reference Range Interpretation [...] (test code = 50 U/L 6-55 347) [employer] K[employer] Operator ID - PIAYA LCBC with platelet count + automated [id number] 06:01:00 Test Item Value Reference Range Interpretation Comments WBC (test code = 6690-2) 7.9 See_Comment [A utomated message] The system [employer] generated this result transmitted ref erence range: 3.5 - 10 .5 K/L. The refe rence range was not u sed to interpret this result as normal/abnor mal. RBC (test code = 789-8) 3.22 See_Comment L [Au tomated message] The system [employer] generated this result transmitted ref erence range: 3.93 - 5 .22 M/L. The refe rence range was not u sed to interpret this result as normal/abnor mal. MCHC (test code = 786-4) 31.8 See_Comment L [A utomated message] The system [employer] generated this result transmitted ref erence range: [...] code = 282 See_Comment [Aut omated message] 157-3) The system [employer] generated this result transmitted ref erence range: 150 - 45 0 K/CU MM. The referen ce range was not u sed to interpret this result as normal/abnor mal. MPV (test code = 8.9 fL 9.4-12.3 L 00395-3) nRBC (test code = 413) 0 See_Comment [Aut omated message] The system [employer] generated this result transmitted ref erence range: [...] See_Comment [Aut omated message] 670) The system [employer] generated this result transmitted ref erence range: 1.56 - 6 .13 K/L. The refe rence range was not u sed to interpret this result as normal/abnor mal. # Lymphs (test code = 2.20 See_Comment [Auto mated message] 414) The system [employer] generated this result transmitted ref erence range: 1.18 - 3 .74 K/L. The refe rence range was not u sed to interpret this result as normal/abnor mal. # Monos (test code = 0.54 See_Comment H [Autom ated message] 415) The system [employer] generated this result transmitted ref erence range: 0.24 - 0 .36 K/L. The refe rence range was not u sed to interpret this result as normal/abnor mal. # Eos (test code = 416) 0.08 See_Comment [Au tomated message] The system [employer] generated this result transmitted ref erence range: 0.04 - 0 .36 K/L. The refe rence range was not u sed to interpret this result as normal/abnor mal. # Baso (test code = 417) 0.03 See_Comment [A utomated message] The system [employer] generated this result transmitted ref erence range: 0.01 - 0 .08 K/L. The refe rence range was not u sed to interpret this result as normal/abnor mal. Immature 0 % 0-1 Granulocytes-Relative (test code = 2801) Lab Interpretation (test Abnormal code = 77708-3) [facility] with platelet count + automated [id number] 06:01:00 Test Item Value Reference Range Interpretation Comments WBC (test code = 6690-2) 7.9 See_Comment [A utomated message] The system [employer] generated this result transmitted ref erence range: 3.5 - 10 .5 K/L. The refe rence range was not u sed to interpret this result as normal/abnor mal. RBC (test code = 789-8) 3.22 See_Comment L [Au tomated message] The system [employer] generated this result transmitted ref erence range: 3.93 - 5 .22 M/L. The refe rence range was not u sed to interpret this result as normal/abnor mal. MCHC (test code = 786-4) 31.8 See_Comment L [A utomated message] The system [employer] generated this result transmitted ref erence range: [...] See_Comment [Aut omated message] 777-3) The system [employer] generated this result transmitted ref erence range: 150 - 45 0 K/CU MM. The referen ce range was not u sed to interpret this result as normal/abnor mal. MPV (test code = 8.9 fL 9.4-12.3 L 29914-6) nRBC (test code = 413) 0 See_Comment [Aut omated message] The system [employer] generated this result transmitted ref erence range: [...] See_Comment [Aut omated message] 670) The system [employer] generated this result transmitted ref erence range: 1.56 - 6 .13 K/L. The refe rence range was not u sed to interpret this result as normal/abnor mal. # Lymphs (test code = 2.20 See_Comment [Auto mated message] 414) The system [employer] generated this result transmitted ref erence range: 1.18 - 3 .74 K/L. The refe rence range was not u sed to interpret this result as normal/abnor mal. # Monos (test code = 0.54 See_Comment H [Autom ated message] 415) The system [employer] generated this result transmitted ref erence range: 0.24 - 0 .36 K/L. The refe rence range was not u sed to interpret this result as normal/abnor mal. # Eos (test code = 416) 0.08 See_Comment [Au tomated message] The system [employer] generated this result transmitted ref erence range: 0.04 - 0 .36 K/L. The refe rence range was not u sed to interpret this result as normal/abnor mal. # Baso (test code = 417) 0.03 See_Comment [A utomated message] The system [employer] generated this result transmitted ref erence range: 0.01 - 0 .08 K/L. The refe rence range was not u sed to interpret this result as normal/abnor mal. Immature 0 % 0-1 Granulocytes-Relative (test code = 2801) Lab Interpretation (test Abnormal code = 88430-5) [facility] with platelet count + automated [id number] 06:01:00 Test Item Value Reference Range Interpretation Comments WBC (test code = 6690-2) 7.9 See_Comment [A utomated message] The system [employer] generated this result transmitted ref erence range: 3.5 - 10 .5 K/L. The refe rence range was not u sed to interpret this result as normal/abnor mal. RBC (test code = 789-8) 3.22 See_Comment L [Au tomated message] The system [employer] generated this result transmitted ref erence range: 3.93 - 5 .22 M/L. The refe rence range was not u sed to interpret this result as normal/abnor mal. MCHC (test code = 786-4) 31.8 See_Comment L [A utomated message] The system [employer] generated this result transmitted ref erence range: [...] See_Comment [Aut omated message] 777-3) The system [employer] generated this result transmitted ref erence range: 150 - 45 0 K/CU MM. The referen ce range was not u sed to interpret this result as normal/abnor mal. MPV (test code = 8.9 fL 9.4-12.3 L 05763-0) nRBC (test code = 413) 0 See_Comment [Aut omated message] The system [employer] generated this result transmitted ref erence range: [...] See_Comment [Aut omated message] 670) The system [employer] generated this result transmitted ref erence range: 1.56 - 6 .13 K/L. The refe rence range was not u sed to interpret this result as normal/abnor mal. # Lymphs (test code = 2.20 See_Comment [Auto mated message] 414) The system [employer] generated this result transmitted ref erence range: 1.18 - 3 .74 K/L. The refe rence range was not u sed to interpret this result as normal/abnor mal. # Monos (test code = 0.54 See_Comment H [Autom ated message] 415) The system [employer] generated this result transmitted ref erence range: 0.24 - 0 .36 K/L. The refe rence range was not u sed to interpret this result as normal/abnor mal. # Eos (test code = 416) 0.08 See_Comment [Au tomated message] The system [employer] generated this result transmitted ref erence range: 0.04 - 0 .36 K/L. The refe rence range was not u sed to interpret this result as normal/abnor mal. # Baso (test code = 417) 0.03 See_Comment [A utomated message] The system [employer] generated this result transmitted ref erence range: 0.01 - 0 .08 K/L. The refe rence range was not u sed to interpret this result as normal/abnor mal. Immature 0 % 0-1 Granulocytes-Relative (test code = 2801) Lab Interpretation (test Abnormal code = 55343-1) [facility] [id number] 06:01:00 Test Item Value Reference Range Interpretation Comments WBC (test code = 6690-2) 7.9 See_Comment [A utomated message] The system [employer] generated this result transmitted ref erence range: 3.5 - 10 .5 K/L. The refe rence range was not u sed to interpret this result as normal/abnor mal. RBC (test code = 789-8) 3.22 See_Comment L [Au tomated message] The system [employer] generated this result transmitted ref erence range: 3.93 - 5 .22 M/L. The refe rence range was not u sed to interpret this result as normal/abnor mal. MCHC (test code = 786-4) 31.8 See_Comment L [A utomated message] The system [employer] generated this result transmitted ref erence range: [...] See_Comment [Aut omated message] 777-3) The system [employer] generated this result transmitted ref erence range: 150 - 45 0 K/CU MM. The referen ce range was not u sed to interpret this result as normal/abnor mal. MPV (test code = 8.9 fL 9.4-12.3 L 92852-4) nRBC (test code = 413) 0 See_Comment [Aut omated message] The system [employer] generated this result transmitted ref erence range: [...] See_Comment [Aut omated message] 670) The system [employer] generated this result transmitted ref erence range: 1.56 - 6 .13 K/L. The refe rence range was not u sed to interpret this result as normal/abnor mal. # Lymphs (test code = 2.20 See_Comment [Auto mated message] 414) The system [employer] generated this result transmitted ref erence range: 1.18 - 3 .74 K/L. The refe rence range was not u sed to interpret this result as normal/abnor mal. # Monos (test code = 0.54 See_Comment H [Autom ated message] 415) The system [employer] generated this result transmitted ref erence range: 0.24 - 0 .36 K/L. The refe rence range was not u sed to interpret this result as normal/abnor mal. # Eos (test code = 416) 0.08 See_Comment [Au tomated message] The system [employer] generated this result transmitted ref erence range: 0.04 - 0 .36 K/L. The refe rence range was not u sed to interpret this result as normal/abnor mal. # Baso (test code = 417) 0.03 See_Comment [A utomated message] The system [employer] generated this result transmitted ref erence range: 0.01 - 0 .08 K/L. The refe rence range was not u sed to interpret this result as normal/abnor mal. Immature 0 % 0-1 Granulocytes-Relative (test code = 2801) Lab Interpretation (test Abnormal code = 50613-9) [facility] W/PLT COUNT & AUTO [id number] 06:01:00 Test Item Value Reference Range Interpretation [...] (BEAKER) (test code = 2801) ECG 12 [id number] 06:47:19Interface, External Ris In - 05/05/2021 6:47 AM CDTVentricular Rate 91 BPMAtrial Rate 91 BPMP-R Interval 126 msQRS Duration 78 msQ-T Interval 352 msQTC Calculation(Bazett) 432 msP [place] 44 degreesR Axis28 degreesT [place] 39 degreesNormal sinus rhythmNormal ECGNo previous ECGs availableConfirmed by MD MIA, TEMI Mcnulty ([id number]) on 05/05/2021 6:47:15 [facility] [id number] 06:47:19Interface, External Ris In - 05/05/2021 6:47 AM CDTVentricular Rate 91 BPMAtrial Rate 91 BPMP-R Interval 126 msQRS Duration 78 msQ-T Interval 352 msQTC Calculation(Bazett) 432 msP [place] 44 degreesR Axis28 degreesT [place] 39 degreesNormal sinus rhythmNormal ECGNo previous ECGs availableConfirmed by MD BELLAMY JOSEPH P ([id number]) on 05/05/2021 6:47:15 [facility] [id number] 06:47:19Interface, External Ris In - 05/05/2021 6:47 AM CDTVentricular Rate 91 BPMAtrial Rate 91 BPMP-R Interval 126 msQRS Duration 78 msQ-T Interval 352 msQTC Calculation(Bazett) 432 msP [place] 44 degreesR Axis28 degreesT [place] 39 degreesNormal sinus rhythmNormal ECGNo previous ECGs availableConfirmed by MD BELLAMY JOSEPH P ([id number]) on 05/05/2021 6:47:15 [facility] ECG 12 [id number] 06:47:19Interface, External Ris In - 05/05/2021 6:47 AM CDTVentricular Rate 91 BPMAtrial Rate 91 BPMP-R Interval 126 msQRS Duration 78 msQ-T Interval 352 msQTC Calculation(Bazett) 432 msP [place] 44 degreesR Axis28 degreesT [place] 39 degreesNormal sinus rhythmNormal ECGNo previous ECGs availableConfirmed by MD BELLAMY JOSEPH P ([id number]) on 05/05/2021 6:47:15 [facility] [id number] 06:17:00 Test Item Value Reference Range Interpretation Comments ABO Grouping (test code = 2588) O Rh Factor (test code = 2589) POS [facility], [id number] 06:17:00 Test Item Value Reference Range Interpretation Comments ABO Grouping (test code = 2588) O Rh Factor (test code = 2589) [facility], [id number] 06:17:00 Test Item Value Reference Range Interpretation Comments ABO Grouping (test code = 2588) O Rh Factor (test code = 2589) [facility], [id number] 06:17:00 Test Item Value Reference Range Interpretation Comments ABO Grouping (test code = 2588) O Rh Factor (test code = 2589) [facility] 2021-05-05 05:01:00 Test Item Value Reference Range Interpretation Comments ABO/RH AUTOMATED (BEAKER) (test O POSITIVE code = 2260) Ab Scrn (test code = 890-4) [facility]GATIVE [facility] 2021-05-05 05:01:00 Test Item Value Reference Range Interpretation Comments ABO/RH AUTOMATED (BEAKER) (test O POSITIVE code = 2260) Ab Scrn (test code = 890-4) NEGATIVE [facility] 2021-05-05 05:01:00 Test Item Value Reference Range Interpretation Comments ABO/RH AUTOMATED (BEAKER) (test O POSITIVE code = 2260) Ab Scrn (test code = 890-4) NEGATIVE [facility] 2021-05-05 05:01:00 Test Item Value Reference Range Interpretation Comments ABO/RH AUTOMATED (BEAKER) (test O POSITIVE code = 2260) Ab Scrn (test code = 890-4) NEGATIVE [facility][id number] 04:35:00 Test Item Value Reference Interpretation Comments [...] valves. Lab Interpretation Normal (test code = 42675-7) [facility][id number] 04:35:00 Test Item Value Reference Interpretation Comments [...] valves. Lab Interpretation Normal (test code = 70823-7) [facility][id number] 04:35:00 Test Item Value Reference Interpretation Comments [...] valves. Lab Interpretation Normal (test code = 32176-7) [facility][id number] 04:35:00 Test Item Value Reference Interpretation Comments [...] valves. Lab Interpretation Normal (test code = 49496-8) [facility]/[id number] 04:35:00 Test Item Value Reference Range Interpretation Comments PROTIME (BEAKER) 13.7 seconds 11.9-14.2 (test code = 759) INR (BEAKER) (test 1.07 See_Comment [Automat ed message] code = 370) The system [employer] generated this result transmitted ref erence range: <=5.90. The reference range was not used to int erpret this result as normal/abnormal . RECOMMENDED COUMADIN/WARFARIN INR THERAPY RANGESSTANDARD DOSE: 2.0 - 3.0 Includes: PROPHYLAXIS for venous thrombosis, systemic embolization; TREATMENT for venous thrombosis and/or pulmonary embolus.HIGH RISK: Target INR is 2.5-3.5 for patients with mechanical heart valves.High Sensitivity Troponin [id number] 01:56:00 Test Item Value Reference Range Interpretation Comments Troponin I HS (test <4 See_Comment [Mind The Placea lane code = 59021-5) message] The system which generated this result transmitted reference range : <=17 pg/ml. The reference range was not used to interpret this result as normal/abnormal . TORRES (test code = Reactor Kettle Operator ID - TORRES) DBThe CONCRETE CONVEYOR OPERATOR STAT High Sensitivity Troponin-I results should be used in conjunction with other diagnostic information such as ECG, clinical observations and information, and patient symptoms to aid in the diagnosis of [place]. Lab Interpretation Normal (test code = 37994-1) [facility] Troponin [id number] 01:56:00 Test Item Value Reference Range Interpretation Comments Troponin I HS (test <4 See_Comment [Automa lane code = 93241-2) message] The system which generated this result transmitted reference range : <=17 pg/ml. The reference range was not used to interpret this result as normal/abnormal . TORRES (test code = Reactor Kettle Operator ID - TORRES) DBThe CONCRETE CONVEYOR OPERATOR STAT High Sensitivity Troponin-I results should be used in conjunction with other diagnostic information such as ECG, clinical observations and information, and patient symptoms to aid in the diagnosis of [place]. Lab Interpretation Normal (test code = 59624-9) [facility] Troponin [id number] 01:56:00 Test Item Value Reference Range Interpretation Comments Troponin I HS (test <4 See_Comment [Aut[address] lane code = 07218-3) message] The system which generated this result transmitted reference range : <=17 pg/ml. The reference range was not used to interpret this result as normal/abnormal . TORRES (test code = Reactor Kettle Operator ID - TORRES) DBThe CONCRETE CONVEYOR OPERATOR STAT High Sensitivity Troponin-I results should be used in conjunction with other diagnostic information such as ECG, clinical observations and information, and patient symptoms to aid in the diagnosis of [place]. Lab Interpretation Normal (test code = 14327-1) [facility] Troponin [id number] 01:56:00 Test Item Value Reference Range Interpretation Comments Troponin I HS (test <4 See_Comment [Aut[address] lane code = 09755-0) message] The system which generated this result transmitted reference range : <=17 pg/ml. The reference range was not used to interpret this result as normal/abnormal . TORRES (test code = Reactor Kettle Operator ID - TORRES) DBThe CONCRETE CONVEYOR OPERATOR STAT High Sensitivity Troponin-I results should be used in conjunction with other diagnostic information such as ECG, clinical observations and information, and patient symptoms to aid in the diagnosis of [place]. Lab Interpretation Normal (test code = 17022-9) [facility] TROPONIN [id number] 01:56:00 Test Item Value Reference Range Interpretation Comments HIGH SENSITIVITY < pg/ml See_Comment [Automated message] TROPONIN I (test code = The system which 6094655) generated this result transmitted ref erence range: <=17. Th e reference range was not used to interpr et this result as normal/abnormal . Reactor Kettle Operator ID - DBThe CONCRETE CONVEYOR OPERATOR STAT High Sensitivity Troponin-I results should be used in conjunctionwith other diagnostic information such as ECG, clinical observations and information, and patient symptoms to aid in the diagnosis of [place].Ketones, [id number] 01:40:00 Test Item Value Reference Range Interpretation Comments Ketones, Blood (test code = 1103) 0.4 mmol/L <0.4 H Lab Interpretation (test code = Abnormal 33208-1) [facility] [id number] 01:40:00 Test Item Value Reference Range Interpretation Comments Ketones, Blood (test code = 1103) 0.4 mmol/L <0.4 H Lab Interpretation (test code = Abnormal 22462-2) [facility] [id number] 01:40:00 Test Item Value Reference Range Interpretation Comments Ketones, Blood (test code = 1103) 0.4 mmol/L <0.4 H Lab Interpretation (test code = Abnormal 30291-7) [facility] [id number] 01:40:00 Test Item Value Reference Range Interpretation Comments Ketones, Blood (test code = 1103) 0.4 mmol/L <0.4 H Lab Interpretation (test code = Abnormal 41000-9) [facility] [id number] 01:40:00 Test Item Value Reference Range Interpretation Comments KETONES, BLOOD (BEAKER) (test code 0.4 mmol/L <0.4 H = 1103) SARS-CoV2/RT-PCR (Asymptomatic ONLY)2021-05-05 01:30:00 Test Item Value Reference Interpretation Comments Range SARS-COV2/RT-PCR Negative Negative The SARS-Co V-2 (test code = target nucleic 87263-2) acids are not detected in thi s [...] revoked sooner. Fact Sheet for Healthcare Providers: https://www.[employer]/Documents/Xp ert%20Xpress%20SAR S%20CoV-2/Fact%20S heets/302-3802%20S ARS-COV-2%20HEALTH CARE%20PROVIDERS%2 0FACT%20SHEET.pdf Fact Sheet for Healthcare Patients: https://www.[employer]/Documents/Xp ert%20Xpress%20SAR S%20CoV-2/Fact%20S heets/302-3801%20S ARS-COV-2%20PATIEN T%20FACT%20SHEET.p df Lab Interpretation Normal (test code = 99735-3) [facility]2021-05-05 01:30:00 Test Item Value Reference Interpretation Comments Range SARS-COV2/RT-PCR Negative Negative The SARS-Co V-2 (test code = target nucleic 66377-1) acids are not detected in thi s [...] revoked sooner. Fact Sheet for Healthcare Providers: https://www.[employer]/Documents/Xp ert%20Xpress%20SAR S%20CoV-2/Fact%20S heets/302-3802%20S ARS-COV-2%20HEALTH CARE%20PROVIDERS%2 0FACT%20SHEET.pdf Fact Sheet for Healthcare Patients: https://www.[employer]/Documents/Xp ert%20Xpress%20SAR S%20CoV-2/Fact%20S heets/302-3801%20S ARS-COV-2%20PATIEN T%20FACT%20SHEET.p df Lab Interpretation Normal (test code = 26889-2) [facility]2021-05-05 01:30:00 Test Item Value Reference Interpretation Comments Range SARS-COV2/RT-PCR Negative Negative The SARS-Co V-2 (test code = target nucleic 80712-4) acids are not detected in thi s [...] revoked sooner. Fact Sheet for Healthcare Providers: https://www.[employer]/Documents/Xp ert%20Xpress%20SAR S%20CoV-2/Fact%20S heets/302-3802%20S ARS-COV-2%20HEALTH CARE%20PROVIDERS%2 0FACT%20SHEET.pdf Fact Sheet for Healthcare Patients: https://www.[employer]/Documents/Xp ert%20Xpress%20SAR S%20CoV-2/Fact%20S heets/302-3801%20S ARS-COV-2%20PATIEN T%20FACT%20SHEET.p df Lab Interpretation Normal (test code = 98389-5) [facility]2021-05-05 01:30:00 Test Item Value Reference Interpretation Comments Range SARS-COV2/RT-PCR Negative Negative The SARS-Co V-2 (test code = target nucleic 32891-6) acids are not detected in thi s [...] revoked sooner. Fact Sheet for Healthcare Providers: https://www.[employer]/Documents/Xp ert%20Xpress%20SAR S%20CoV-2/Fact%20S heets/302-3802%20S ARS-COV-2%20HEALTH CARE%20PROVIDERS%2 0FACT%20SHEET.pdf Fact Sheet for Healthcare Patients: https://www.[employer]/Documents/Xp ert%20Xpress%20SAR S%20CoV-2/Fact%20S heets/302-3801%20S ARS-COV-2%20PATIEN T%20FACT%20SHEET.p df Lab Interpretation Normal (test code = 45404-5) [facility])2021-05-05 01:30:00 Test Item Value Reference Range Interpretation Comments SARS-COV2/RT-PCR Negative Negative The SARS-Co V-2 target (test code = nucleic acids a re not 8230879) detected in thi s specimen. Negative result [...] revoked sooner. Fact Sheet for Healthcare Providers: https://www.[employer] m/Documents/Xpert%20Xpress%20SARS%20CoV-2/Fact%20Sheets/302-3802%64BYOR-NQN-0%20 HEALTHCARE%20PROVIDERS%20FACT%20SHEET.pdf Fact Sheet for Healthcare Patients: https://www.[employer]/Documents/Xpert%20Xp ress%20SARS%20CoV-2/Fact%20Sheets/302-3801%97EKFU-JAN-8%20PATIENT%20FACT%20SHEET .pdfBlood gas, [id number] 01:22:00 Test Item Value Reference Range Interpretation [...] Niranjan (test code = 21 mmol/L 21-29 05191-1) Base Excess, Niranjan (test -4.5 mmol/L -2-3 L code = 1927-3) Patient Temperature 37.0 (test code = 8310-5) FIO2 (test code = 1819) 21 Lab Interpretation Abnormal (test code = 72675-7) [facility] [id number] 01:22:00 Test Item Value Reference Range Interpretation [...] Niranjan (test code = 21 mmol/L 21-29 93632-4) Base Excess, Niranjan (test -4.5 mmol/L -2-3 L code = 1927-3) Patient Temperature 37.0 (test code = 8310-5) FIO2 (test code = 1819) 21 Lab Interpretation Abnormal (test code = 87467-6) [facility] gas, [id number] 01:22:00 Test Item Value Reference Range Interpretation [...] Niranjan (test code = 21 mmol/L 21-29 57930-2) Base Excess, Niranjan (test -4.5 mmol/L -2-3 L code = 1927-3) Patient Temperature 37.0 (test code = 8310-5) FIO2 (test code = 1819) 21 Lab Interpretation Abnormal (test code = 43678-0) [facility] gas, [id number] 01:22:00 Test Item Value Reference Range Interpretation [...] code = 59 See_Comment H [Auto mated 1435-2) message] The sy stem which generated this result transmitted reference range : 25 - 40 mm Hg. The reference range was not used to interpret this result as normal/abnormal . O2 Sat, Niranjan (test code 89.4 % 40-70 H = 2711-0) HCO3, Niranjan (test code = 21 mmol/L 21-29 84540-3) Base Excess, Niranjan (test -4.5 mmol/L -2-3 L code = 1927-3) Patient Temperature 37.0 (test code = 8310-5) FIO2 (test code = 1819) 21 Lab Interpretation Abnormal (test code = 63609-8) [facility] [id number] 01:22:00 Test Item Value Reference Range Interpretation [...] (BEAKER) (test code = 1819) 21.0 ECG/EKG Axqxohfbxwycrf7798-10-32 23:15:17Cherie Faustin MD 05/05/2021 2:11 AMECG/EKG Interpretation Date/Time: 05/04/2021 11:26 PMPerformed by: Cherie Faustin MDAuthorized by: Cherie Faustin MD The ECG was interpreted by ED physician. The ECG is interpreted as sinus rhythm. Rate is normal rate. Heart rate is 91 BPM.ST segments normal.T-wave inversion in lead(s) V1 and V2. Clinical Impression: normal ECGAtascadero State HospitalECG/EKG Interpretation 2021-05-04 23:15:Cherie Guerra MD 05/05/2021 2:11 AMECG/EKG Interpretation Date/Time: 05/04/2021 11:26 PMPerformedby: Cherie Faustin MDAuthorized by: Cherie Faustin MD The ECG was interpreted by ED physician.The ECG is interpreted as sinus rhythm. Rate is normal rate. Heart rate is 91 BPM.ST segments normal. T-wave inversion in lead(s) V1 and V2. Clinical Impression: normal ECGCH[facility] HospitalECG/EKG Ylbfbeysknajns5146-03-88 23:15:17 Cherie Faustin MD 05/05/2021 2:11 AMECG/EKG Interpretation Date/Time: 05/04/2021 11:26 PMPerformed by: Cherie Faustin MDAuthorized by: Cherie Faustin MD The ECG was interpreted by ED physician. The ECG is interpreted as sinus rhythm. Rate is normal rate. Heart rate is 91 BPM.ST segments normal.T- wave inversion in lead(s) V1 and V2. Clinical Impression: normal ECGCHI [facility] HospitalECG/EKG Xxbgrebaklihry5614-59-24 23:15:17Cherie Faustin MD 05/05/2021 2:11 AMECG/EKG Interpretation Date/Time: 05/04/2021 11:26 PMPerformed b y: Cherie Faustin MDAuthorized by: Cherie Faustin MD The ECG was interpreted by ED physician. The ECG is interpreted as sinus rhythm. Rate is normal rate. Heart rate is 91 BPM.ST segments normal.T-wave inversion in lead(s) V1 and V2. Clinical Impression: normal ECGAtascadero State HospitalHEPATIC FUNCTION [id number] 22:01:00 Test Item Value Reference Range Interpretation [...] Specimen moderately (test code = 347) hemolyzed Reactor Kettle Operator ID - [id number] 21:53:00 Test Item Value Reference Range Interpretation Comments Amylase (test code = 143 U/L 25-125 H Specime n 1798-8) markedly hemolyzed TORRES (test code = TORRES) Reactor Kettle Operator ID - DB Lab Interpretation Abnormal (test code = 80241-9) [facility]Lipase2021-08-[facility] 21:53:00 Test Item Value Reference Range Interpretation Comments Lipase (test code = 3040-3) 97 U/L 8-78 H TORRES (test code = TORRES) Reactor Kettle Operator ID - DB Lab Interpretation (test Abnormal code = 91363-2) [facility] HospitalAmylase2021-08-23 21:53:00 Test Item Value Reference Range Interpretation Comments Amylase (test code = 143 U/L 25-125 H Specime n 1798-8) markedly hemolyzed TORRES (test code = TORRES) Reactor Kettle Operator ID - DB Lab Interpretation Abnormal (test code = 65120-3) [facility]2021-[facility] 21:53:00 Test Item Value Reference Range Interpretation Comments Lipase (test code = 3040-3) 97 U/L 8-78 H TORRES (test code = TORRES) Reactor Kettle Operator ID - DB Lab Interpretation (test Abnormal code = 63421-0) [facility] HospitalAmylase2021-08-23 21:53:00 Test Item Value Reference Range Interpretation Comments Amylase (test code = 143 U/L 25-125 H Specime n 1798-8) markedly hemolyzed TORRES (test code = TORRES) Reactor Kettle Operator ID - DB Lab Interpretation Abnormal (test code = 49640-2) [facility]2021-[facility] 21:53:00 Test Item Value Reference Range Interpretation Comments Lipase (test code = 3040-3) 97 U/L 8-78 H TORRES (test code = TORRES) Reactor Kettle Operator ID - DB Lab Interpretation (test Abnormal code = 29364-2) [facility] HospitalAmylase2021-08-23 21:53:00 Test Item Value Reference Range Interpretation Comments Amylase (test code = 143 U/L 25-125 H Specime n 1798-8) markedly hemolyzed TORRES (test code = TORRES) Reactor Kettle Operator ID - DB Lab Interpretation Abnormal (test code = 30167-5) [facility]21-[facility] 21:53:00 Test Item Value Reference Range Interpretation Comments Lipase (test code = 3040-3) 97 U/L 8-78 H TORRES (test code = TORRES) Reactor Kettle Operator ID - DB Lab Interpretation (test Abnormal code = 28836-0) [facility] HospitalBASIC METABOLIC [id number] 21:53:00 Test Item Value Reference Range Interpretation [...] S NOT APPLICABLE FOR DIALYSIS PATIEN TS. Reactor Kettle Operator ID - [id number] 21:53:00 Test Item Value Reference Range Interpretation Comments AMYLASE (BEAKER) (test 143 U/L 25-125 H Speci men markedly code = 349) hemolyzed Reactor Kettle Operator ID - [id number] 21:53:00 Test Item Value Reference Range Interpretation Comments LIPASE (BEAKER) (test code = 749) 97 U/L 8-78 H Reactor Kettle Operator ID - DBCBC W/PLT COUNT & AUTO [id number] 19:51:00 Test Item Value Reference Range Interpretation [...] PERCENT (BEAKER) (test code = 2801) POC-Glucose [id number] 08:41:00 Test Item Value Reference Range Interpretation Comments POC-Glucose Meter (test 104 mg/dL 70-110 : TE STED AT [facility] code = 1538) [address] [place] [address], [address]: Reactor Kettle Operator/Techni aldo ID = [id number] for ROCKY LEMONIE Lab Interpretation (test Normal code = 46865-8) [facility]-Glucose bficw0110-07-61 08:41:00 Test Item Value Reference Range Interpretation Comments POC-Glucose Meter (test 104 mg/dL 70-110 : TE STED AT [facility] code = 1538) [address] [place] [address], [address] 30: Reactor Kettle Operator/Techni aldo ID = [id number] for LEMON HUSSEIN Lab Interpretation (test Normal code = 83512-7) [facility]-Glucose [id number] 08:41:00 Test Item Value Reference Range Interpretation Comments POC-Glucose Meter (test 104 mg/dL 70-110 : TE STED AT [facility] code = 1538) [address] [place] [address], [address]: Reactor Kettle Operator/Techni aldo ID = [id number] for XOCHILT HUSSEIN Lab Interpretation (test Normal code = 78385-1) [facility]-Glucose [id number] 08:41:00 Test Item Value Reference Range Interpretation Comments POC-Glucose Meter (test 104 mg/dL 70-110 : TE STED AT [facility] code = 1538) [address] [place] [address], [address]: Reactor Kettle Operator/Techni aldo ID = [id number] for XOCHILT HUSSEIN Lab Interpretation (test Normal code = 57671-1) [facility]-GLUCOSE [id number] 08:41:00 Test Item Value Reference Range Interpretation Comments POC-GLUCOSE METER 104 mg/dL 70-110 : TESTED A T [facility] 6720 (BEAKER) (test code = [place], 1538) [address]: Reactor Kettle Operator/Techni aldo ID = [id number] for HUSSEIN DAVID Comprehensive metabolic [id number] 06:49:00 Test Item Value Reference Range Interpretation Comments Protein, Total (test 6.8 See_Comment [Autom ated code = 2885-2) message] The system which generated this result transmit lane reference range : 6.0 - 8.3 gm/dL . The reference range was not u sed to interpret th is result as normal/abnormal . Albumin (test code = 3.5 g/dL 3.5-5 84094-6) Alkaline Phosphatase 44 U/L 40-150 (test code = 6768-6) Total Bilirubin (test 0.3 mg/dL 0.2-1.2 code = 1974-2) Sodium (test code = 139 meq/L 691-764 0747-2) Potassium (test code 3.8 meq/L 3.5-5.1 = 2823-3) Chloride (test code = 104 meq/L 98-107 2075-0) CO2 (test code = 27 meq/L 22-29 2028-9) BUN (test code = 12 mg/dL 7-21 3094-0) Creatinine (test code 1.05 mg/dL 0.57-1.25 = 2160-0) Glucose (test code = 79 mg/dL 70-105 2345-7) Calcium (test code = 8.4 mg/dL 8.4-10.2 03465-4) AST (test code = 49 U/L 5-34 H 1920-8) ALT (test code = 41 U/L 6-55 1742-6) EGFR (test code = 52 mL/min/1.[address] [place] [address]-0) NOT ACCURATE CREATININE CLEARANCE IN PREDICTING GLOMERULAR FILTRATION RATE . ESTIMATED GFR I S NOT APPLICABLE FOR DIALYSIS PATIEN TS. TORRES (test code = TORRES) Reactor Kettle Operator ID - HMUBLE Porter Lab Interpretation Abnormal (test code = 10619-6) [facility] HospitalComprehensive metabolic [id number] 06:49:00 Test Item Value Reference Range Interpretation Comments Protein, Total (test 6.8 See_Comment [Autom ated code = 2885-2) message] The system which generated this result transmit lane reference range : 6.0 - 8.3 gm/dL . The reference range was not u sed to interpret th is result as normal/abnormal . Albumin (test code = 3.5 g/dL 3.5-5 60777-1) Alkaline Phosphatase 44 U/L 40-150 (test code = 6768-6) Total Bilirubin (test 0.3 mg/dL 0.2-1.2 code = 1974-2) Sodium (test code = 139 meq/L 577-069 4754-2) Potassium (test code 3.8 meq/L 3.5-5.1 = 2823-3) Chloride (test code = 104 meq/L 98-107 2075-0) CO2 (test code = 27 meq/L 22-29 2027-9) BUN (test code = 12 mg/dL 7-21 3094-0) Creatinine (test code 1.05 mg/dL 0.57-1.25 = 2160-0) Glucose (test code = 79 mg/dL 70-105 2345-7) Calcium (test code = 8.4 mg/dL 8.4-10.2 30614-6) AST (test code = 49 U/L 5-34 H 1920-8) ALT (test code = 41 U/L 6-55 1742-6) EGFR (test code = 52 mL/min/1.73 sq [place] [address]-4) NOT ACCURATE CREATININE CLEARANCE IN PREDICTING GLOMERULAR FILTRATION RATE . ESTIMATED GFR I S NOT APPLICABLE FOR DIALYSIS PATIEN TS. TORRES (test code = TORRES) Reactor Kettle Operator ID - HUMBLE M Lab Interpretation Abnormal (test code = 36444-0) [facility] HospitalComprehensive metabolic [id number] 06:49:00 Test Item Value Reference Range Interpretation Comments Protein, Total (test 6.8 See_Comment [Autom ated code = 2885-2) message] The system which generated this result transmit lane reference range : 6.0 - 8.3 gm/dL . The reference range was not u sed to interpret th is result as normal/abnormal . Albumin (test code = 3.5 g/dL 3.5-5 56559-1) Alkaline Phosphatase 44 U/L 40-150 (test code = 6768-6) Total Bilirubin (test 0.3 mg/dL 0.2-1.2 code = 1974-) Sodium (test code = 139 meq/L 593-946 6689-2) Potassium (test code 3.8 meq/L 3.5-5.1 = 2823-3) Chloride (test code = 104 meq/L 98-107 2075-0) CO2 (test code = 27 meq/L 22-29 2027-9) BUN (test code = 12 mg/dL 7-21 3094-0) Creatinine (test code 1.05 mg/dL 0.57-1.25 = 2160-0) Glucose (test code = 79 mg/dL 70-105 2345-7) Calcium (test code = 8.4 mg/dL 8.4-10.2 30300-1) AST (test code = 49 U/L 5-34 H 192-8) ALT (test code = 41 U/L 6-55 1742-6) EGFR (test code = 52 mL/min/1.73 sq [place] [address]-8) NOT ACCURATE CREATININE CLEARANCE IN PREDICTING GLOMERULAR FILTRATION RATE . ESTIMATED GFR I S NOT APPLICABLE FOR DIALYSIS PATIEN TSKenrick TORRES (test code = TORRES) Reactor Kettle Operator ID - HUMBLE M Lab Interpretation Abnormal (test code = 72394-9) [facility] HospitalComprehensive metabolic [id number] 06:49:00 Test Item Value Reference Range Interpretation Comments Protein, Total (test 6.8 See_Comment [Autom ated code = 2885-2) message] The system which generated this result transmit lane reference range : 6.0 - 8.3 gm/dL . The reference range was not u sed to interpret th is result as normal/abnormal . Albumin (test code = 3.5 g/dL 3.5-5 67032-7) Alkaline Phosphatase 44 U/L 40-150 (test code = 6768-6) Total Bilirubin (test 0.3 mg/dL 0.2-1.2 code = 1974-10) Sodium (test code = 139 meq/L 672-989 7977-2) Potassium (test code 3.8 meq/L 3.5-5.1 = 2823-3) Chloride (test code = 104 meq/L 98-107 5-0) CO2 (test code = 27 meq/L -2027-9) BUN (test code = 12 mg/dL 7-21 3094-0) Creatinine (test code 1.05 mg/dL 0.57-1.25 = 2160-0) Glucose (test code = 79 mg/dL 70-105 2345-7) Calcium (test code = 8.4 mg/dL 8.4-10.2 03936-8) AST (test code = 49 U/L 5-34 H 1920-8) ALT (test code = 41 U/L 6-55 1742-6) EGFR (test code = 52 mL/min/1.[address] [place] [address]-5) NOT ACCURATE CREATININE CLEARANCE IN PREDICTING GLOMERULAR FILTRATION RATE . ESTIMATED GFR I S NOT APPLICABLE FOR DIALYSIS PATIEN TS. MACDONALD (test code = TORRES) Reactor Kettle Operator ID - HUMBLE M Lab Interpretation Abnormal (test code = 41121-4) [facility] HospitalCOMPREHENSIVE METABOLIC [id number] 06:49:00 Test Item Value Reference Range Interpretation [...] H (test code = 353) ALT (SGPT) ([facility]) 41 U/L 6-55 (test code = 347) EGFR (BEAKER) (test 52 mL/min/1.[address] GFR IS code = 1092) sq m NOT ACCURATE CREATININE CLEARANCE IN PREDICTING GLOMERULAR FILTRATION RATE . ESTIMATED GFR I S NOT APPLICABLE FOR DIALYSIS PATIEN TS. Reactor Kettle Operator ID - HUMBLE MPOCT-GLUCOSE [id number] 16:54:00 Test Item Value Reference Range Interpretation Comments POC-GLUCOSE METER 171 mg/dL 70-110 H : TESTED A T [facility] 6720 ([facility]) (test code = [place], 1538) [address]: Reactor Kettle Operator/Techni aldo ID = [id number] for ALBINO GONZALEZ Hemoglobin [id number] 15:22:00 Test Item Value Reference Range Interpretation Comments Hemoglobin A1C (test code = 4548-4) 6.2 % 4.3-6.1 H Lab Interpretation (test code = Abnormal 75241-5) [facility] HospitalHemoglobin [id number] 15:22:00 Test Item Value Reference Range Interpretation Comments Hemoglobin A1C (test code = 4548-4) 6.2 % 4.3-6.1 H Lab Interpretation (test code = Abnormal 15681-2) [facility] HospitalH[facility]oglobin [id number] 15:22:00 Test Item Value Reference Range Interpretation Comments Hemoglobin A1C (test code = 4548-4) 6.2 % 4.3-6.1 H Lab Interpretation (test code = Abnormal 32718-9) [facility] HospitalH[facility] [id number] 15:22:00 Test Item Value Reference Range Interpretation Comments Hemoglobin A1C (test code = 4548-4) 6.2 % 4.3-6.1 H Lab Interpretation (test code = Abnormal 29852-3) [facility] HospitalHEMOGLOBIN [id number] 15:22:00 Test Item Value Reference Range Interpretation Comments HEMOGLOBIN A1C (BEAKER) (test code = 6.2 % 4.3-6.1 H 368) POCT-GLUCOSE [id number] 12:56:00 Test Item Value Reference Range Interpretation Comments POC-GLUCOSE METER 93 mg/dL 70-110 : Notified RN/MD: TESTED (LIA) (test code = AT [facility] [address] [facility] [place], [address]: Reactor Kettle Operator/Techni aldo ID = [id number] for Arely Correa [place], [id number] 12:02:00Reason for exam:->ERCP tomorrow [facility] : 1950 Sex: FFluoroscopic unit utilized for a procedure performed in the OR. No interpretation was requested. Refer to theoperative report for findings. Refer to PACS for patient radiation dose information.[place] Endoscopic Retrograde Lxzqwfklzfhjhxjmxfjzwxib7342-12-61 12:02:00Interface, External Ris In - 03/10/2021 12:18 PM CDTFluoroscopic unit utilized for a procedure performed in the OR. No interpretation was requested. Refer to the operative report for findings. Refer [facility] for patient radiation dose information.[facility] Endoscopic Retrograde Oxlvmjotaaunazxbsuvdxwlk3068-35-58 12:02:00Interface, External Ris In - 03/10/2021 12:18 PM CDTFluoroscopic unit utilized for a procedure performed in the OR. No interpretation was requested. Refer to the operative report for findings. Refer toPACS for patient radiation dose information.[facility] Endoscopic Retrograde Izurrctiwfyysnxxmtgcyeue8156-21-38 12:02:00Interface, External Ris In 03/10/2021 12:18 PM CDTFluoroscopic unit utilized for a procedure performed in the OR. No interpretation was requested. Refer to the operative report for findings. Refer toPACS for patient radiation dose information.[facility] HospitalFL Endoscopic Retrograde Rdahwnhhsoxqpjkbgyoeahqd8326-27-06 12:02:00Interface, External Ris In - 03/10/2021 12:18 PM CDTFluoroscopic unit utilized for a procedure performed in the OR. No interpretation was requested. Refer to the operative report for findings. Refer [facility] for patient radiation dose information.[facility] HospitalPOCT-GLUCOSE [id number] 09:27:00 Test Item Value Reference Range Interpretation Comments POC-GLUCOSE METER 74 mg/dL 70-110 : TESTED A T [facility] 6720 (BEAKER) (test code = [place], 1538) [address]: Reactor Kettle Operator/Techni aldo ID = [id number] for ALBINO ROSS COMPREHENSIVE METABOLIC [id number] 05:49:00 Test Item Value Reference Range Interpretation [...] S NOT APPLICABLE FOR DIALYSIS PATIEN TS. Reactor Kettle Operator ID - HUMBLE BC (Hemogram only)2021-03-10 05:10:00 Test Item Value Reference Range Interpretation Comments WBC (test code = 6690-2) 9.1 See_Comment [A utomated message] The system [employer] generated this result transmitted ref erence range: 3.5 - 10 .5 K/L. The refe rence range was not u sed to interpret this result as normal/abnor mal. RBC (test code = 789-8) 3.57 See_Comment L [Au tomated message] The system [employer] generated this result transmitted ref erence range: 3.93 - 5 .22 M/L. The refe rence range was not u sed to interpret this result as normal/abnor mal. MCHC (test code = 786-4) 30.9 See_Comment L [A utomated message] The system [employer] generated this result transmitted ref erence range: [...] See_Comment [Aut omated message] 777-3) The system [employer] generated this result transmitted ref erence range: 150 - 45 0 K/CU MM. The referen ce range was not u sed to interpret this result as normal/abnor mal. MPV (test code = 9.3 fL 9.4-12.3 L 38758-9) nRBC (test code = 413) 0 See_Comment [Aut omated message] The system [employer] generated this result transmitted ref erence range: 0 - 0 /1 00 WBC. The refere nce range was not u sed to interpret this result as normal/abnor mal. Lab Interpretation (test Abnormal code = 29581-8) [facility] (Hemogram only)2021-03-10 05:10:00 Test Item Value Reference Range Interpretation Comments WBC (test code = 6690-2) 9.1 See_Comment [A utomated message] The system [employer] generated this result transmitted ref erence range: 3.5 - 10 .5 K/L. The refe rence range was not u sed to interpret this result as normal/abnor mal. RBC (test code = 789-8) 3.57 See_Comment L [Au tomated message] The system [employer] generated this result transmitted ref erence range: 3.93 - 5 .22 M/L. The refe rence range was not u sed to interpret this result as normal/abnor mal. MCHC (test code = 786-4) 30.9 See_Comment L [A utomated message] The system [employer] generated this result transmitted ref erence range: [...] See_Comment [Aut omated message] 777-3) The system [employer] generated this result transmitted ref erence range: 150 - 45 0 K/CU MM. The referen ce range was not u sed to interpret this result as normal/abnor mal. MPV (test code = 9.3 fL 9.4-12.3 L 88232-0) nRBC (test code = 413) 0 See_Comment [Aut omated message] The system [employer] generated this result transmitted ref erence range: 0 - 0 /1 00 WBC. The refere nce range was not u sed to interpret this result as normal/abnor mal. Lab Interpretation (test Abnormal code = 00437-4) [facility] (Hemogram only)2021-03-10 05:10:00 Test Item Value Reference Range Interpretation Comments WBC (test code = 6690-2) 9.1 See_Comment [A utomated message] The system [employer] generated this result transmitted ref erence range: 3.5 - 10 .5 K/L. The refe rence range was not u sed to interpret this result as normal/abnor mal. RBC (test code = 789-8) 3.57 See_Comment L [Au tomated message] The system [employer] generated this result transmitted ref erence range: 3.93 - 5 .22 M/L. The refe rence range was not u sed to interpret this result as normal/abnor mal. MCHC (test code = 786-4) 30.9 See_Comment L [A utomated message] The system [employer] generated this result transmitted ref erence range: [...] See_Comment [Aut omated message] 777-3) The system [employer] generated this result transmitted ref erence range: 150 - 45 0 K/CU MM. The referen ce range was not u sed to interpret this result as normal/abnor mal. MPV (test code = 9.3 fL 9.4-12.3 L 50998-1) nRBC (test code = 413) 0 See_Comment [Aut omated message] The system [employer] generated this result transmitted ref erence range: 0 - 0 /1 00 WBC. The refere nce range was not u sed to interpret this result as normal/abnor mal. Lab Interpretation (test Abnormal code = 12814-5) [facility]CBC ([facility] only)2021-03-10 05:10:00 Test Item Value Reference Range Interpretation Comments WBC (test code = 6690-2) 9.1 See_Comment [A utomated message] The system [employer] generated this result transmitted ref erence range: 3.5 - 10 .5 K/L. The refe rence range was not u sed to interpret this result as normal/abnor mal. RBC (test code = 789-8) 3.57 See_Comment L [Au tomated message] The system [employer] generated this result transmitted ref erence range: 3.93 - 5 .22 M/L. The refe rence range was not u sed to interpret this result as normal/abnor mal. MCHC (test code = 786-4) 30.9 See_Comment L [A utomated message] The system [employer] generated this result transmitted ref erence range: [...] See_Comment [Aut omated message] 777-3) The system [employer] generated this result transmitted ref erence range: 150 - 45 0 K/CU MM. The referen ce range was not u sed to interpret this result as normal/abnor mal. MPV (test code = 9.3 fL 9.4-12.3 L 92990-2) nRBC (test code = 413) 0 See_Comment [Aut omated message] The system [employer] generated this result transmitted ref erence range: 0 - 0 /1 00 WBC. The refere nce range was not u sed to interpret this result as normal/abnor mal. Lab Interpretation (test Abnormal code = 95300-5) [facility]MO[facility])2021-03-10 05:10:00 Test Item Value Reference [...] 0-0 (BEAKER) (test code = 413) POCT-GLUCOSE [id number] 00:05:00 Test Item Value Reference Range Interpretation Comments POC-GLUCOSE METER 83 mg/dL 70-110 : TESTED A T [facility] 6720 (BEAKER) (test code = [place], 1538) [address]: Reactor Kettle Operator/Techni aldo ID = [id number] for BRENDA VENCES SARS-COV2/RT-PCR ([facility])2021-03-09 23:58:00 Test Item Value Reference Range Interpretation Comments SARS-COV2/RT-PCR (test Negative Not Detected, Negative, code = 1522049) See external report for linked test SARS-COV-2 PERFORMING LAB [facility] SHIV (test code = 8493272) Negative result for this test determines that [...] of the Act.Fact Sheet for Healthcare Prov iders:https://www.[employer]/sites/default/files/product/documents/Fact_Sheet_HC _Xgmznxqgf_Sglz_XXTY-MzL-3.pdfFact Sheet for Healthcare Patients:https://www.[employer]/sites/default/files/product/docume nts/Bqbr_Bgfig_Mbsgfdhd_Mipp_YHMT-IyL-3.pdfPerforming Laboratory:[facility] [place], [place] [address]QLSS-UCZZOKK METER 2021-03-09 17:34:00 Test Item Value Reference Range Interpretation Comments POC-GLUCOSE METER 97 mg/dL 70-110 : TESTED A T [facility] 67[address] (LIA) (test code = [place] [facility], 1538) [address]: Reactor Kettle Operator/Techni aldo ID = [id number] for ALBINO ROSS MR, ABDOMEN, [id number] 17:11:00Unlisted Reason for Exam - Click Yes and Enter Reason Below->NoPatient with hyperdense material seen in distal CBD on CTA performed in [facility] : 1950 Sex: FFINAL REPORT MR, [...] [place] Verified Date/Time: 03/09/2021 17:11:18 Reading Location: [facility] C013 Transitional Reading Room MR abdomen without IV contrast [id number] 17:11:00 Interface, External Ris In - 03/09/2021 [...] 12/29/2005 but appears chronic Signed: Ashely Peralta [facility] Verified Date/Time: 03/09/2021 17:11:18 Reading Location: [facility] C013T Transitional [facility] [id number] 17:11:00Interface, External Ris In - 03/09/2021 5:13 [...] 12/29/2005 but appears chronic Signed: Ashely Peralta [facility] Verified Date/Time: 03/09/2021 17:11:18 Reading Location: [facility] C0[facility] Transitional Reading [facility] without IV contrast [id number] 17:11:00Interface, External Ris In - 03/09/2021 5:13 [...] [place] Verified Date/Time: 03/09/2021 17:11:18 Reading Location: [facility] C0[facility] Transitional [facility] [id number] 17:11:00Interface, External Ris In - 03/09/2021 5:13 [...] [place] Verified Date/Time: 03/09/2021 17:11:18 Reading Location: [facility] C013 Transitional Reading Room [facility] [id number] 12:41:00 Test Item Value Reference Range Interpretation Comments POC-GLUCOSE METER 92 mg/dL 70-110 : TESTED A T [facility] 6720 (BEAKER) (test code = [place], 1538) [address]: Reactor Kettle Operator/Techni aldo ID = [id number] for ALBINO ROSS Urinalysis w/Microscopic + Reflex to [id number] 11:21:00 Test Item Value Reference Range Interpretation Comments Color, UA (test code Light Yellow = 5778-6) Clarity, UA (test Clear code = 5767-9) Specific [place], UA 1.033 1.001-1.035 (test code = 5811-5) pH, UA (test code = 5.5 5.0-8.0 5803-2) Protein, UA (test Negative Negative code = 75480-0) Glucose, UA (test Negative Negative code = 365) Ketones, UA (test Negative Negative code = 2514-8) Bilirubin, UA (test Negative Negative code = 57442-0) Blood, UA (test code Trace Negative A = 78784-6) Nitrite, UA (test Negative Negative code = 5802-4) Leukocytes, UA (test Negative Negative code = 5799-2) Urobilinogen, UA 0.2 mg/dL 0.2-1 (test code = 95354-7) RBC, UA (test code = 2 See_Comment [Autom ated 01701-1) message] The system which generated this result [...] Bacteria, UA (test None Seen code = 87267-4) Mucus (test code = Rare 8247-9) Squam Epithel, UA 1 See_Comment [Automate d (test code = 08648-2) messag e] The system which generated this result transmit lane reference range : /HPF. The reference range was not used to interpret this result as normal/abnormal . Crystals, Urine (test None Seen code = 65791-6) Specimen Source (test code = 2795) TORRES (test code = TORRES) Reactor Kettle Operator ID - [auto]Reactor Kettle Operator ID - tech Lab Interpretation Abnormal (test code = 26269-0) [facility] Culture 2021-03-09 11:21:00 Test Item Value Reference Range Interpretation Comments Color, UA (test code Light Yellow = 5778-6) Clarity, UA (test Clear code = 5767-9) Specific [place], UA 1.033 1.001-1.035 (test code = 5811-5) pH, UA (test code = 5.5 5.0-8.0 5803-2) Protein, UA (test Negative Negative code = 33881-0) Glucose, UA (test Negative Negative code = 365) Ketones, UA (test Negative Negative code = 2514-8) Bilirubin, UA (test Negative Negative code = 70454-0) Blood, UA (test code Trace Negative A = 90004-8) Nitrite, UA (test Negative Negative code = 5802-4) Leukocytes, UA (test Negative Negative code = 5799-2) Urobilinogen, UA 0.2 mg/dL 0.2-1 (test code = 77811-6) RBC, UA (test code = 2 See_Comment [Autom ated 56955-3) message] The system which generated this result [...] Bacteria, UA (test None Seen code = 03994-8) Mucus (test code = Rare 8247-9) Squam Epithel, UA 1 See_Comment [Automate d (test code = 73511-4) messag e] The system which generated this result transmit lane reference range : /HPF. The reference range was not used to interpret this result as normal/abnormal . Crystals, Urine (test None Seen code = 21333-3) Specimen Source (test code = 2795) TORRES (test code = TORRES) Reactor Kettle Operator ID - [auto]Reactor Kettle Operator ID - tech Lab Interpretation Abnormal (test code = 22140-7) [facility] Reflex to Culture 2021-03-09 11:21:00 Test Item Value Reference Range Interpretation Comments Color, UA (test code Light Yellow = 5778-6) Clarity, UA (test Clear code = 5767-9) Specific [place], UA 1.033 1.001-1.035 (test code = 5811-5) pH, UA (test code = 5.5 5.0-8.0 5803-2) Protein, UA (test Negative Negative code = 57243-5) Glucose, UA (test Negative Negative code = 365) Ketones, UA (test Negative Negative code = 2514-8) Bilirubin, UA (test Negative Negative code = 70208-6) Blood, UA (test code Trace Negative A = 02703-7) Nitrite, UA (test Negative Negative code = 5802-4) Leukocytes, UA (test Negative Negative code = 5799-2) Urobilinogen, UA 0.2 mg/dL 0.2-1 (test code = 56374-4) RBC, UA (test code = 2 See_Comment [Autom ated 69868-8) message] The system which generated this result [...] Bacteria, UA (test None Seen code = 62252-7) Mucus (test code = Rare 8247-9) Squam Epithel, UA 1 See_Comment [Automate d (test code = 51111-3) messag e] The system which generated this result transmit lane reference range : /HPF. The reference range was not used to interpret this result as normal/abnormal . Crystals, Urine (test None Seen code = 24170-9) Specimen Source (test code = 2795) TORRES (test code = TORRES) Reactor Kettle Operator ID - [auto]Reactor Kettle Operator ID - tech Lab Interpretation Abnormal (test code = 43887-6) [facility] Reflex to Culture 2021-03-09 11:21:00 Test Item Value Reference Range Interpretation Comments Color, UA (test code Light Yellow = 5778-6) Clarity, UA (test Clear code = 5767-9) Specific [place], UA 1.033 1.001-1.035 (test code = 5811-5) pH, UA (test code = 5.5 5.0-8.0 5803-2) Protein, UA (test Negative Negative code = 31382-4) Glucose, UA (test Negative Negative code = 365) Ketones, UA (test Negative Negative code = 2514-8) Bilirubin, UA (test Negative Negative code = 13981-4) Blood, UA (test code Trace Negative A = 84490-9) Nitrite, UA (test Negative Negative code = 5802-4) Leukocytes, UA (test Negative Negative code = 5799-2) Urobilinogen, UA 0.2 mg/dL 0.2-1 (test code = 36960-5) RBC, UA (test code = 2 See_Comment [Autom ated 84064-4) message] The system which generated this result [...] Bacteria, UA (test None Seen code = 68016-7) Mucus (test code = Rare 8247-9) Squam Epithel, UA 1 See_Comment [Automate d (test code = 77328-2) messag e] The system which generated this result transmit lane reference range : /HPF. The reference range was not used to interpret this result as normal/abnormal . Crystals, Urine (test None Seen code = 06554-9) Specimen Source (test code = 2795) TORRES (test code = TORRES) Reactor Kettle Operator ID - [auto]Reactor Kettle Operator ID - tech Lab Interpretation Abnormal (test code = 82139-2) [facility]FLEX URINE [id number] 11:21:00 Test Item Value Reference Range Interpretation [...] = 1521) SOURCE(BEAKER) (test code = 2795) Reactor Kettle Operator ID - [auto]Reactor Kettle Operator ID - techHEMOGLOBIN [id number] 10:22:00 Test Item Value Reference Range Interpretation Comments HEMOGLOBIN A1C (BEAKER) (test code = 6.1 % 4.3-6.1 368) [id number] 06:48:00 Test Item Value Reference Range Interpretation Comments Magnesium (test code = 2.1 mg/dL 1.6-2.6 60136-8) TORRES (test code = TORRES) Reactor Kettle Operator ID - ELVIN W Lab Interpretation (test Normal code = 83182-2) [facility]21-[facility] 06:48:00 Test Item Value Reference Range Interpretation Comments Magnesium (test code = 2.1 mg/dL 1.6-2.6 22209-3) TORRES (test code = TORRES) Reactor Kettle Operator ID - ELVIN W Lab Interpretation (test Normal code = 57962-8) [facility]21-[facility] 06:48:00 Test Item Value Reference Range Interpretation Comments Magnesium (test code = 2.1 mg/dL 1.6-2.6 53841-9) TORRES (test code = TORRES) Reactor Kettle Operator ID Carlo OCONNOR W Lab Interpretation (test Normal code = 41411-4) [facility]21-[facility] 06:48:00 Test Item Value Reference Range Interpretation Comments Magnesium (test code = 2.1 mg/dL 1.6-2.6 88758-3) TORRES (test code = TORRES) Reactor Kettle Operator ID - ELVIN W Lab Interpretation (test Normal code = 99477-0) [facility] METABOLIC [id number] 06:48:00 Test Item Value Reference Range Interpretation [...] S NOT APPLICABLE FOR DIALYSIS PATIEN TS. Reactor Kettle Operator ID - ELVIN [id number] 06:48:00 Test Item Value Reference Range Interpretation Comments MAGNESIUM (BEAKER) (test code = 2.1 mg/dL 1.6-2.6 627) Reactor Kettle Operator ID - ELVIN WHEPATIC FUNCTION [id number] 06:48:00 Test Item Value Reference Range Interpretation [...] (test code = 30 U/L 6-55 347) Reactor Kettle Operator ID - ELVIN WPROTHROMBIN [id number] 06:32:00 Test Item Value Reference Range Interpretation Comments PROTIME (BEAKER) 12.9 seconds 11.9-14.2 (test code = 759) INR (BEAKER) (test 0.99 See_Comment [Automat ed message] code = 370) The system [employer] generated this result transmitted ref erence range: <=5.90. The reference range was not used to int erpret this result as normal/abnormal . RECOMMENDED COUMADIN/WARFARIN INR THERAPY RANGESSTANDARD DOSE: 2.0 - 3.0 Includes: PROPHYLAXIS for venous thrombosis, systemic embolization; TREATMENT for venous thrombosis and/or pulmonary embolus.HIGH RISK: Target INR is 2.5-3.5 for patients with mechanical heart valves.CBC W/PLT COUNT & AUTO [id number] 06:29:00 Test Item Value Reference Range Interpretation [...] code = 2801) MRI Brain wo contrast [id number] 16:25:00Patient Name: ALBERTO REEVESB: 1950. Age: 67 years. Gender: Female.MR: [id number]. Location: [facility]. Provider: Hollie Acuña MD.EXAM: Brain wo [...] abnormality. Mild chronic microangiopathic ischemic gliosis. SL: [id number]--Qsou by: Finesse Dias MDDictated Date/time: 02/08/18 17:31Electronically Signed by: Finesse Dias MD 02/08/1817:40FINAL REPORTUT PhysiciansI Brain w/wo contrast [id number] 2018-02-08 13:39:00 Test Item Value Reference Range Interpretation Comments Brain w/wo contrast MRI Cancel Reason: Exam (test code = Brain w/wo Replaced contrast MRI) [facility]
[2023-04-14] MEDS ORDERED: MORPHINE 4 MG/ML SYR ONE (15:54)
[2023-04-14] MEDS ORDERED: ONDANSETRON 4 MG/2 ML VIAL ONE (15:54)
[2023-04-14 16:11] LABS: Urine Bilirubin NEGATIVE (Negative); Urine Blood Negative (Negative); Urine Clarity Clear (Clear); Urine Color Colorless (Yellow); Urine Glucose NEGATIVE (Negative); Urine Protein NEGATIVE (Negative); Urine Urobilinogen Normal (Normal)
[2023-04-14 16:24] LABS: Absolute Lymphocytes (CBC) 2.6 K/uL (0.7-4.9); Hematocrit 32.6 % (36.0-45.0); Lymphocytes % 21.4 % (15.3-44.8); MCV 88.2 fL (80-100); MPV 7.2 fL (7.6-11.3)
--- NOTE | 2023-04-14 16:36 | RAD REPORT ---
EXAM DESCRIPTION: RAD - Lumbar Spine 3 Views - 04/14/2023 4:29 pm CLINICAL HISTORY: LOWER BACK PAIN Radiculopathy COMPARISON: Sacrum And Coccyx dated 10/27/2021; Lumbar Spine 3 Views dated 10/27/2021; Lumbar Spine 3 Views dated 06/13/2017; LUMBAR SPINE 3 VIEWS dated 03/18/2015 FINDINGS: There is a compression fracture, moderate, involving L1 vertebral body with vertebroplasty cement in place. It appears unchanged since comparative studies. Large anterior osteophytes noted L1 -2. No acute compression fracture. Mild lower lumbar degenerative changes particularly L5-S1. IMPRESSION: No acute process seen.
--- NOTE | 2023-04-14 16:37 | RAD REPORT ---
EXAM DESCRIPTION: RAD - Chest Single View - 04/14/2023 4:29 pm CLINICAL HISTORY: SOB Chest pain. COMPARISON: <Comparisons> FINDINGS: Portable technique limits examination quality. The lungs are grossly clear. The heart is mildly enlarged. No displaced fractures. IMPRESSION: No acute intrathoracic process suspected.
[2023-04-14 16:42] LABS: ALT/SGPT 62 U/L (13-56); Albumin 3.5 g/dL (3.4-5.0); Alkaline Phosphatase 76 U/L (45-117); BUN Blood Urea Nitrogen 26 mg/dL (7-18); Bicarbonate 24 mEq/L (21-32); Bilirubin Total 0.1 mg/dL (0.2-1.0); Glomerular Filtration Rate 42 ml/min (=/>90); Glucose Level 127 mg/dL (74-106); Lipase 78 U/L (13-75); Protein, Total 8.3 g/dL (6.4-8.2); Sodium Level 136 mEq/L (136-145)
[2023-04-14 16:43] LABS: AST/SGOT 42 U/L (15-37); Bilirubin Direct < 0.1 mg/dL (0-0.2); Bilirubin Indirect, Calculated ND mg/dL (0.2-0.8); Potassium 4.4 mEq/L (3.5-5.1)
--- NOTE | 2023-04-14 17:07 | ER ---
Nurse's Notes [facility] Name: Alberto Botello Age: 72 yrs Sex: Female : 1950 Arrival Date: 04/14/2023 Time: 15:03 Bed 18 Private MD: Diagnosis: Upper abdominal pain, unspecified;Wedge compression fracture of first lumbar vertebra-chronic;Low back pain Presentation: 04/14 15:07 Chief complaint: EMS states: Pt c/o low back pain, which is chronic, and SOB, is more ph comfortable when lying flat but when she does SOB worsens. Coronavirus screen: Vaccine status: Patient reports receiving the 2nd dose of the covid vaccine. Ebola Screen: No symptoms or risks identified at this time. Initial Sepsis Screen: Does the patient meet any 2 criteria? No. Patient's initial sepsis screen is negative. Does the patient have a suspected source of infection? No. Patient's initial sepsis screen is negative. Risk Assessment: Do you want to hurt yourself or someone else? Patient reports no desire to harm self or others. Onset of symptoms was April 14, 2023. 15:07 Method Of Arrival: EMS: [facility] ph 15:07 Acuity: ART 3 ph Triage Assessment: 17:48 Respiratory: Onset: The symptoms/episode began/occurred today, the patient has mild me1 shortness of breath. Historical: - Allergies: 15:33 No Known Allergies; me1 - Home Meds: 15:33 alendronate 70 mg Oral tablet 1 tab every week [Active]; alprazolam 2 mg Oral tab 1 tab me1 nightly [Active]; citalopram 20 mg tab 1 tab once daily [Active]; famotidine 20 mg Oral tablet 1 tab daily [Active]; furosemide 20 mg Oral tablet 1 tab daily [Active]; gabapentin 600 mg Oral tablet 1 tab every 12 hours [Active]; levocetirizine 5 mg Oral tablet 1 tab daily [Active]; levofloxacin 500 mg Oral tablet 1 tab daily [Active]; lisinopril 10 mg Oral tab 1 tab once daily [Active]; memantine 10 mg Oral tablet 1 tab every morning [Active]; [place] 7.5-325 mg Oral tab 1 tab TID [Active]; PreserVision AREDS oral [Active]; risperadone 0.5 1 tab twice a day [Active]; spironolactone 25 mg Oral tablet [Active]; tamsulosin 0.4 mg Oral capsule 1 cap daily [Active]; tizanidine 4 mg Oral tablet 1 tabs daily [Active]; Vitamin D Oral 1000 unit daily [Active]; - PMHx: 15:33 Anxiety; Chronic pain; Diabetes - NIDDM; Hepatitis; Hypertension; Osteoporosis; me1 Pancreatitis; - PSHx: 15:33 Cholecystectomy; Total abdominal hysterectomy; hip; me1 - Immunization history:: Adult Immunizations unknown. - Social history:: Smoking status: Patient denies any tobacco usage or history of. Screenin:[address] [facility] ED Fall Risk Assessment (Adult) Score/Fall Risk Level 0 - 2 = Low Risk. Abuse me1 screen: Denies threats or abuse. Nutritional screening: No deficits noted. Tuberculosis screening: No symptoms or risk factors identified. Assessment: 15:29 General: Appears uncomfortable, Behavior is calm, cooperative, appropriate for age. me1 Pain: Complains of pain in back Pain currently is 8 out of 10 on a pain scale. Quality of pain is described as unable to describe. Neuro: Level of Consciousness is awake, alert, obeys commands, Oriented to person, place, time, situation, Appropriate for age. Cardiovascular: Capillary refill < 3 seconds Patient's skin is warm and dry. Respiratory: Respiratory effort is even, unlabored. GI: Reports diarrhea, Patient currently denies nausea, vomiting. : Reports burning with urination. 17:47 Respiratory: Airway is patent Breath sounds are clear bilaterally. me1 17:47 Cardiovascular: Rhythm is regular. me1 Vital Signs: 15:07 BP 155 / 88; Pulse 76; Resp 18; Temp 98.9(O); Pulse Ox 98% ; me1 16:51 BP 148 / 79; Pulse 74; Resp 12; Pulse Ox 99% ; me1 17:12 BP 135 / 77; Pulse 80; Resp 19; Pulse Ox 99% on R/A; me1 ED Course: 15:06 Patient arrived in ED. ph 15:09 Triage completed. ph 15:12 Carmella Kennedy MD is Attending Physician. cp3 15:33 Patient has correct armband on for positive identification. Bed in low position. Call me1 light in reach. Side rails up X2. 15:33 Provided Education on: POC, verbalized understanding. . me1 15:33 Arm band placed on Patient placed in an exam room. me1 15:33 No provider procedures requiring assistance completed. Maintain EMS IV. Site clean \T\ me1 dry. 16:00 Urinalysis w/ reflexes Sent. me1 16:00 Urine Culture Sent. me1 16:09 Arlene Foote, RN is Primary Nurse. me1 16:09 Basic Metabolic Panel Sent. me1 16:09 Lipase Sent. me1 16:10 LFT's Sent. me1 16:10 CBC with Diff Sent. me1 16:31 XRAY Lumbar Spine (3 Views) In Process Unspecified. EDMS 16:31 XRAY CXR (1 view) In Process Unspecified. EDMS 17:04 IV discontinued, intact, bleeding controlled, No redness/swelling at site. Pressure me1 dressing applied. 17:05 Rohith Gamboa MD is Referral Physician. cp3 Administered Medications: 15:59 Drug: morphine IVP or IV 4 mg Route: IVP; Infused Over: 4 mins; Site: right antecubital;me1 16:20 Follow up: Response: No adverse reaction; Pain is decreased me1 15:59 Drug: Ondansetron IVP 4 mg Route: IVP; Site: right antecubital; me1 16:20 Follow up: Response: No adverse reaction; Nausea is decreased me1 17:12 Drug: oxyCODONE-acetaminophen PO (5 mg-325 mg) 2 tabs Route: PO; me1 17:47 Follow up: Response: No adverse reaction; Pain is decreased me1 17:12 Drug: Ondansetron Oral Disintegrating Tablet Oral Disintegrating Tablet 4 mg Route: PO; me1 17:46 Follow up: Response: No adverse reaction; Nausea unchanged me1 Medication: 15:33 VIS not applicable for this client. me1 Outcome: 17:07 Discharge ordered by . cp3 18:02 Patient left the ED. me1 Signatures: Dispatcher [employer] Carmella Bishop MD MD cp3 Alia Maldonado RN RN ph Arlene Foote, RN RN me1 Corrections: (The following items were deleted from the chart) 17:48 17:48 Arm band placed on Patient placed in an exam room, me1 me1
--- NOTE | 2023-04-14 17:07 | EDPHYS ---
Physician Documentation [facility] Name: Alberto Botello Age: 72 yrs Sex: Female : 1950 Arrival Date: 04/14/2023 Time: 15:03 Bed 18 Private MD: ED Physician Carmella Kennedy HPI: 04/14 17:11 Patient is a 72-year-old female who presents to the ED secondary to epigastric pain and cp3 lower back pain. Historical: - Allergies: 15:33 No Known Allergies; me1 - Home Meds: 15:33 alendronate 70 mg Oral tablet 1 tab every week [Active]; alprazolam 2 mg Oral tab 1 tab me1 nightly [Active]; citalopram 20 mg tab 1 tab once daily [Active]; famotidine 20 mg Oral tablet 1 tab daily [Active]; furosemide 20 mg Oral tablet 1 tab daily [Active]; gabapentin 600 mg Oral tablet 1 tab every 12 hours [Active]; levocetirizine 5 mg Oral tablet 1 tab daily [Active]; levofloxacin 500 mg Oral tablet 1 tab daily [Active]; lisinopril 10 mg Oral tab 1 tab once daily [Active]; memantine 10 mg Oral tablet 1 tab every morning [Active]; [place] 7.5-325 mg Oral tab 1 tab TID [Active]; PreserVision AREDS oral [Active]; risperadone 0.5 1 tab twice a day [Active]; spironolactone 25 mg Oral tablet [Active]; tamsulosin 0.4 mg Oral capsule 1 cap daily [Active]; tizanidine 4 mg Oral tablet 1 tabs daily [Active]; Vitamin D Oral 1000 unit daily [Active]; - PMHx: 15:33 Anxiety; Chronic pain; Diabetes - NIDDM; Hepatitis; Hypertension; Osteoporosis; me1 Pancreatitis; - PSHx: 15:33 Cholecystectomy; Total abdominal hysterectomy; hip; me1 - Immunization history:: Adult Immunizations unknown. - Social history:: Smoking status: Patient denies any tobacco usage or history of. Vital Signs: 15:07 BP 155 / 88; Pulse 76; Resp 18; Temp 98.9(O); Pulse Ox 98% ; me1 16:51 BP 148 / 79; Pulse 74; Resp 12; Pulse Ox 99% ; me1 17:12 BP 135 / 77; Pulse 80; Resp 19; Pulse Ox 99% on R/A; me1 MDM: 15:30 Patient medically screened. cp3 04/14 15:28 Order name: CBC with Diff; Complete Time: 16:54 cp3 04/14 15:28 Order name: LFT's; Complete Time: 16:54 cp3 04/14 15:28 Order name: Lipase; Complete Time: 16:54 cp3 04/14 15:28 Order name: Basic Metabolic Panel; Complete Time: 16:54 cp3 04/14 15:28 Order name: Urinalysis w/ reflexes; Complete Time: 16:22 cp3 04/14 15:28 Order name: Urine Culture cp3 04/14 15:28 Order name: XRAY Lumbar Spine (3 Views); Complete Time: 16:54 cp3 04/14 15:29 Order name: XRAY CXR (1 view); Complete Time: 16:54 cp3 04/14 15:28 Order name: EKG; Complete Time: 15:29 cp3 Administered Medications: 15:59 Drug: morphine IVP or IV 4 mg Route: IVP; Infused Over: 4 mins; Site: right antecubital;me1 16:20 Follow up: Response: No adverse reaction; Pain is decreased me1 15:59 Drug: Ondansetron IVP 4 mg Route: IVP; Site: right antecubital; me1 16:20 Follow up: Response: No adverse reaction; Nausea is decreased me1 17:12 Drug: oxyCODONE-acetaminophen PO (5 mg-325 mg) 2 tabs Route: PO; me1 17:47 Follow up: Response: No adverse reaction; Pain is decreased me1 17:12 Drug: Ondansetron Oral Disintegrating Tablet Oral Disintegrating Tablet 4 mg Route: PO; me1 17:46 Follow up: Response: No adverse reaction; Nausea unchanged me1 Disposition Summary: 04/14/23 17:07 Discharge Ordered Location: Home cp3 Condition: Stable cp3 Problem: an acute exacerbation cp3 Symptoms: have improved cp3 Diagnosis - Upper abdominal pain, unspecified cp3 - Wedge compression fracture of first lumbar vertebra - chronic cp3 - Low back pain cp3 Followup: cp3 - With: Rohith Gamboa MD - When: As needed - Reason: If symptoms return, Re-evaluation by your physician Discharge Instructions: - Discharge Summary Sheet cp3 - Abdominal Pain, Adult cp3 - Spinal Compression Fracture cp3 - Lipase Test cp3 Forms: - Medication Reconciliation Form cp3 - Thank You Letter cp3 - Antibiotic Education cp3 - Prescription Opioid Use cp3 - Patient Portal Instructions cp3 Prescriptions: - Ultram 50 mg Oral Tablet - take 1 tablet by ORAL route every 6 hours As needed e prescribe error - waiver cp3 on file - Dr. Kennedy; 12 tablet; Refills: 0, Product Selection Permitted - Cyclobenzaprine 5 mg Oral Tablet - take 1 tablet by ORAL route 3 times per day As needed; 15 tablet; Refills: 0, cp3 Product Selection Permitted - promethazine 25 mg Oral Tablet - take 1 tablet by ORAL route every 6 hours As needed; 20 tablet; Refills: 0, cp3 Product Selection Permitted Signatures: Dispatcher [employer] Carmella Bishop MD MD cp3 Arlene Foote RN RN me1
[2023-04-14] MEDS ORDERED: Oxycodone HCl/Acetaminophen 1 TAB TAB ONE (17:17)
[2023-04-14] MEDS ORDERED: ONDANSETRON 4 MG (ODT) TAB ONE (17:18)
[2023-04-14 18:08] VITALS: TEMP 98.9
[2023-04-14 18:10] VITALS: O2SAT 99
[2023-04-14 18:12] VITALS: BP 135/77
--- NOTE | 2023-04-18 13:16 | EKG ---
Test Date: 2023-04-14 Test Time: 16:42:25 Clinical Pharmacy Coordinator: JW MEASUREMENT RESULTS: Intervals: Rate: 76 KS: 130 QRSD: 82 QT: 386 QTc: 434 [place]: P: 18 KS: 130 QRS: 49 T: 67 INTERPRETIVE STATEMENTS: Normal sinus rhythm T wave abnormality, consider anterior ischemia Abnormal ECG Compared to ECG 04/01/2023 15:20:35 No significant changes Electronically Signed On 04-18-23 13:10:52 CDT by Jae Avilez
== END 2023-04-14 18:02 | disposition home or self-care (01) ==
LOC: ER 15:03
DX: S32.010A Wedge compression fracture of first lumbar vertebra, initial encounter for closed fracture (principal); M54.50 Low back pain, unspecified; E11.9 Type 2 diabetes mellitus without complications; I10 Essential (primary) hypertension; F41.9 Anxiety disorder, unspecified
CPT/HCPCS: 93005; 87088; 85025; 87086; 80048; 36415; 80076; 81003; 83690; 71045; 72100; 96375; 96374; 99284; Q0162; J2405

== ENCOUNTER 2023-04-16 16:19 | Emergency (ER) | payer OTHER ==
--- OUTSIDE RECORDS SUMMARY | 2023-04-16 16:33 | XMS REPORT | Continuity of Care Document ---
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 mg 00:00: Medical tablet 00 [place] meclizine [facility] ([facility]ERT[facility] 6-21 [facility] 25 mg 00:00: Medical tablet 00 [place] meclizine [facility] ([facility] 6-21 [facility] 25 mg 00:00: Medical tablet 00 [place] meclizine [facility] ([facility] 6-21 [facility] 25 mg 00:00: Medical tablet 00 [place] meclizine [facility] ([facility]ERT[facility] 6-21 [facility] 25 mg 00:00: Medical tablet 00 [place] meclizine [facility] (ANTIVERT) 6-21 [facility] 25 mg 00:00: Medical tablet 00 [place] meclizine Yes [facility] ([facility] 6-21 [facility] 25 mg 00:00: Medical tablet 00 [facility] ([facility] 6-21 [facility] 25 mg 00:00: Medical tablet 00 [facility] (ANT[facility]ERT) 6-21 [facility] 25 mg 00:00: Medical tablet 00 [facility] ([facility]ERT) 6-21 [facility] 25 mg 00:00: Medical tablet 00 [facility] (ANT[facility]ERT) 6-21 [facility] 25 mg 00:00: Medical tablet 00 [facility] (ANTIVERT) 6-21 [facility] 25 mg 00:00: Medical tablet 00 [place] Nortriptyli Nortriptyli Yes HOLLIE TAKE 1 UT [...] Tablet 00 DAILY MethylPREDN MethylPREDN Yes HOLLIE Bennyrol [place] ISolone 4 ISolone 4 02-01 DOMENICO Michelle dose pb [facility] MG Oral MG Oral [...] ity of mg 24 hr 08:12: daily. [place] capsule 18 [facility] ALPRAZolam Yes 2mg [...] daily. [place] capsule 18 [facility] amitriptyli 0 Yes 10mg [...] of mg 24 hr 08:12: daily. [place] [facility] 18 [facility] Branch ALPRAZolam 0 Yes 2mg [...] ity of mg 24 hr 08:12: daily. [facility] 18 Medical Branch ALPRAZolam 2015-0 [...] BY ity of mg tablet 00:00: MOUTH TWICE A Medical DAY WITH [place] FOOD meloxicam Yes TAKE 1 Univer s (MOBIC) 7.5 6-15 TABLET BY ity of mg tablet 00:00: MOUTH TWICE A Medical DAY WITH [place] FOOD morpHINE 2015-0 Yes TK 1 AND Unive [...] 2016-0 Yes Univer s Bulk, 100 % 6- ity of Powd 00:00: [place] 00 Medical [...] [place] mg tablet 00 times Medical daily. [place] ciprofloxac 2014-09 Yes 500mg Take 1 Tab Univers in HCl 1-30 by mouth 2 ity of (CIPRO) 500 00:00: (two) [place] mg tablet 00 times Medical daily. [place] ciprofloxac 2014-09 Yes 500mg Take 1 Tab Univers in HCl 1-30 by mouth 2 ity of (CIPRO) 500 00:00: (two) [place] mg tablet 00 times Medical daily. [place] ciprofloxac 2014-09 Yes 500mg Take 1 Tab Univers in HCl 1-30 by mouth 2 ity of (CIPRO) 500 00:00: (two) [place] mg tablet 00 times Medical daily. [place] ciprofloxac 2014-09 Yes 500mg Take 1 [...] [place] mg tablet 00 times Medical daily. [place] Immunizations Ordered Filled Immunization Date Status Comments [facility] e Immunization Name Name SARS-COV-2 COVID-19 2020-11-11 Completed Unive rsity of PFIZER VACCINE 00:00:00 [facility] SARS-COV-2 COVID-19 2020-11-11 Completed Unive rsity of PFIZER VACCINE 00:00:00 [facility] SARS-COV-2 COVID-19 2020-11-11 Completed Unive rsity of PFIZER VACCINE 00:00:00 [facility] SARS-COV-2 COVID-19 2020-11-11 Completed Unive rsity of PFIZER VACCINE 00:00:00 [facility] SARS-COV-2 COVID-19 2020-11-11 Completed Unive rsity of PFIZER VACCINE 00:00:00 [facility] SARS-COV-2 COVID-19 2020-11-11 Completed Unive rsity of PFIZER VACCINE 00:00:00 [place] [facility]i j[facility]ph[facility] Branch SARS-COV-2 COVID-19 2020-11-11 Completed Unive rsity of PFIZER VACCINE 00:00:00 [facility] Branch SARS-COV-2 COVID-19 2020-11-11 Completed Unive rsity of PFIZER VACCINE 00:00:00 [facility] Branch SARS-COV-2 COVID-19 2020-11-11 Completed Unive rsity of PFIZER VACCINE 00:00:00 [facility] Branch SARS-COV-2 COVID-19 2020-11-11 Completed Unive rsity of PFIZER VACCINE 00:00:00 [facility] Branch SARS-COV-2 COVID-19 2020-11-11 Completed Unive rsity of PFIZER VACCINE 00:00:00 [facility] Branch SARS-COV-2 COVID-19 2020-11-11 Completed Unive rsity of PFIZER VACCINE 00:00:00 [facility] Branch SARS-COV-2 COVID-19 2020-11-11 Completed Unive rsity of PFIZER VACCINE 00:00:00 [facility] Branch SARS-COV-2 COVID-19 2020-11-11 Completed Unive rsity of PFIZER VACCINE 00:00:00 [facility] Branch SARS-COV-2 COVID-19 2020-10-21 Completed Unive rsity of PFIZER VACCINE 00:00:00 [facility] Branch SARS-COV-2 COVID-19 2020-10-21 Completed Unive rsity of PFIZER VACCINE 00:00:00 [facility] Branch SARS-COV-2 COVID-19 2020-10-21 Completed Unive rsity of PFIZER VACCINE 00:00:00 [facility] Branch SARS-COV-2 COVID-19 2020-10-21 Completed Unive rsity of PFIZER VACCINE 00:00:00 [facility] Branch SARS-COV-2 COVID-19 2020-10-21 Completed Unive rsity of PFIZER VACCINE 00:00:00 [facility] SARS-COV-2 COVID-19 2020-10-21 Completed Unive rsity of PFIZER VACCINE 00:00:00 [facility] Branch SARS-COV-2 COVID-19 2020-10-21 Completed Unive rsity of PFIZER VACCINE 00:00:00 [facility] SARS-COV-2 COVID-19 2020-10-21 Completed Unive rsity of PFIZER VACCINE 00:00:00 [facility] SARS-COV-2 COVID-19 2020-10-21 Completed Unive rsity of PFIZER VACCINE 00:00:00 [facility] SARS-COV-2 COVID-19 2020-10-21 Completed Unive rsity of PFIZER VACCINE 00:00:00 [facility] SARS-COV-2 COVID-19 2020-10-21 Completed Unive rsity of PFIZER VACCINE 00:00:00 [facility] SARS-COV-2 COVID-19 2020-10-21 Completed Unive rsity of PFIZER VACCINE 00:00:00 [facility] SARS-COV-2 COVID-19 2020-10-21 Completed Unive rsity of PFIZER VACCINE 00:00:00 [facility] SARS-COV-2 COVID-19 2020-10-21 Completed Unive rsity of PFIZER VACCINE 00:00:00 [facility] Vital Signs Vital Name Observation Time Observation Value Comments Source WEIGHT 2021-03-10 62.596 kg 11:08:00 Body height 2022-10-21 149.9 cm University of 15:35:00 [facility] [place] [facility] Body weight 2022-10-21 62.596 kg University of 15:35:00 [facility] [place] [facility] BMI 2022-10-21 27.87 kg/m2 University of 15:35:00 [facility] [place] [facility] Body height 2022-10-04 149.9 cm University of 20:30:00 [facility] [place] [facility] Body weight 2022-10-04 62.596 kg University of 20:30:00 [facility] [place] [facility] BMI 2022-10-04 27.87 kg/m2 University of 20:30:00 [facility] [place] [facility] WEIGHT 2022-04-11 62.8 kg 19:25:00 WEIGHT 2022-04-09 62.795 kg 11:00:00 WEIGHT 2022-04-11 62.8 kg 19:25:00 WEIGHT 2022-04-09 62.795 kg 11:00:00 Systolic blood 2021-07-24 144 mm[Hg] University of pressure 19:28:00 [facility] [place] [facility] Diastolic blood 2021-07-24 90 mm[Hg] University o f pressure 19:28:00 [facility] [place] [facility] Heart rate 2021-07-24 87 /min University of 19:28:00 [facility] [place] [facility] Respiratory rate 2021-07-24 18 /min University 19:28:00 [facility] [place] [facility] Oxygen saturation 2021-07-24 97 /min University in Arterial blood 19:28:00 [facility] by Pulse oximetry [place] Body temperature 2021-07-24 37 Carolann University 16:20:00 [facility] [place] [facility] Body weight 2021-07-24 61.236 kg University 16:20:00 [facility] [place] [facility] BMI 2021-07-24 25.51 kg/m2 University 16:20:00 [facility] HEIGHT 2021-05-04 152.4 cm 17:29:00 WEIGHT 2021-05-04 61.689 kg 17:29:00 HEIGHT 2021-05-04 152.4 cm 17:29:00 WEIGHT 2021-05-04 61.689 kg 17:29:00 WEIGHT 2021-03-10 62.596 kg 11:08:00 Systolic blood 2022-04-13 132 mm[Hg] [facility] pressure 15:18:00 [facility] Diastolic blood 2022-04-13 85 mm[Hg] [facility] pressure 15:18:00 [facility] Heart rate 2022-04-13 83 /min [facility] 15:18:00 [facility] Body temperature 2022-04-[address] [facility] 15:18:00 [facility] Respiratory rate 2022-04-13 18 /min [facility] 15:18:00 [facility] Oxygen saturation 2022-04-13 98 /min [facility] in Arterial blood 15:18:00 Medical Ce nter by Pulse oximetry Body weight 2022-04-[address] [facility] 19:25:00 [facility] BMI 2022-04-11 27.04 kg/m2 [facility] 19:25:00 [facility] Heart rate 2021-05-07 76 /min [facility] 08:00:00 [facility] Body temperature 2021-05-[address] [facility] 08:00:00 [facility] Respiratory rate 2021-05-07 17 /min [facility] 08:00:00 [facility] Oxygen saturation 2021-05-07 97 /min [facility] in Arterial blood 08:00:00 Medical Ce nter by Pulse oximetry Systolic blood 2021-05-07 156 mm[Hg] [facility] pressure 08:00:00 [facility] Diastolic blood 2021-05-07 74 mm[Hg] [facility] pressure 08:00:00 [facility] Body height 2021-05-04 152.4 cm [facility] 17:29:00 [facility] Body weight 2021-05-04 61.689 kg [facility] 17:29:00 [facility] BMI 2021-05-04 26.56 kg/m2 [facility] 17:29:00 [facility] BP Systolic 2018-02-01 131 mm[Hg] Location: RUE; [facility] 08:36:00 Position: Sitting BP Diastolic 2018-02-01 78 mm[Hg] Location: [facility] 08:36:00 Position: Sitting Height 2018-02-01 60 [in_us] [facility] 08:36:00 Weight 2018-02-01 117 [lb_av] [facility] 08:36:00 Body Mass Index 2018-02-01 22.85 kg/m2 [facility] Calculated 08:36:00 Heart Rate 2018-02-01 73 /min Location: R [facility] 08:36:00 Brachial Artery; Procedures Procedure Date / Time Performing Clinician Source Performed MEDICAL RELEASE/CLEARANCE 2023-03-02 05:01:00 Doctor Unassigned, No [facility] AUTHORIZATION FOR RELEASE 2023-01-05 05:01:00 Doctor Unassigned, No [facility] ASSIGNMENT OF BENEFITS 2022-10-04 20:24:45 Doctor Unassigned, No [facility] AUTHORIZATION FOR RELEASE 2022-09-28 06:01:00 Doctor Unassigned, No [facility] POCT-GLUCOSE METER 2022-04-13 15:22:00 Britney Lloyd [facility] SARS-COV2/RT-PCR ([facility] & 2022-04-13 13:39:00 Britney Lloyd [facility] REF LABS) [facility] POCT-GLUCOSE METER 2022-04-13 11:32:00 Britney Lloyd [facility] POCT-GLUCOSE METER 2022-04-13 07:48:00 [facility] 2022-04-13 04:31[facility]13 04:31[facility] 2022-04-13 04:31:00 Trip [facility] CBC (HEMOGRAM ONLY) 2022-04-13 04:31:00 [facility] POCT-GLUCOSE METER 2022-04-12 20:50:00 [facility] POCT-GLUCOSE METER 2022-04-12 15:42:00 [facility] POCT-GLUCOSE METER 2022-04-12 12:42:00 [facility] POCT-GLUCOSE METER 2022-04-12 08:06:00 [facility] BASIC METABOLIC PANEL 2022-04-12 03:22:00 Trip [facility] MAGNESIUM 2022-04-12 03:22:00 [facility] PHOSPHORUS 2022-04-12 03:22:00 Trip [facility] CBC (HEMOGRAM ONLY) 2022-04-12 03:22:00 [facility] POCT-GLUCOSE METER 2022-04-11 20:41:00 [facility] POCT-GLUCOSE METER 2022-04-11 15:29:00 [facility] POCT-GLUCOSE METER 2022-04-11 11:06:00 [facility] POCT-GLUCOSE METER 2022-04-11 07:19:00 [facility] BASIC METABOLIC PANEL 2022-04-11 05:21:00 Trip [facility] MAGNESIUM 2022-04-11 05:21:00 Trip [facility] PHOSPHORUS 2022-04-11 05:21:00 [facility] CBC (HEMOGRAM ONLY) 2022-04-11 05:21:00 [facility] POCT-GLUCOSE METER 2022-04-10 21:16:00 [facility] POCT-GLUCOSE METER 2022-04-10 16:48:00 [facility] POCT-GLUCOSE METER 2022-04-10 11:11:00 [facility] POCT-GLUCOSE METER 2022-04-10 07:33:00 [facility] BASIC METABOLIC PANEL 2022-04-10 06:00:00 [facility] MAGNESIUM 2022-04-10 06:00:00 [facility] PHOSPHORUS 2022-04-10 06:00:00 [facility] CBC (HEMOGRAM ONLY) 2022-04-10 06:00:00 [facility] PREPARE LEUKO-REDUCED RBC 2022-04-09 23:54:00 [facility] POCT-GLUCOSE METER 2022-04-09 22:57:00 [facility] POCT-GLUCOSE METER 2022-04-09 17:04:00 [facility] CBC (HEMOGRAM ONLY) 2022-04-09 16:27:00 [facility] POCT-GLUCOSE METER 2022-04-09 11:41:00 [facility] POCT-GLUCOSE METER 2022-04-09 07:35:00 [facility] URINE CULTURE 2022-04-09 05:49:00 [facility] [place] CBC W/PLT COUNT & AUTO 2022-04-09 05:41:00 [facility]OLIC PANEL 2022-04-09 05:41:00 Trip [facility] MAGNESIUM 2022-04-09 05:41:00 Trip [facility] PHOSPHORUS 2022-04-09 05:41:00 Trip [facility] CBC W/PLT COUNT & AUTO 2022-04-09 05:41:00 [facility] POCT-GLUCOSE METER 2022-04-09 00:05:00 [facility] TRANSFUSE LEUKO-REDUCED 2022-04-08 23:02:00 [facility] RED BLOOD CELLS Center CBC (HEMOGRAM ONLY) 2022-04-08 21:58:00 [facility] BASIC METABOLIC PANEL 2022-04-08 21:58:00 [facility] 2022-04-08 21:58:00 [facility] PHOS[facility]US 2022-04-08 21:58:00 [facility] LACTIC ACID, VENOUS 2022-04-08 21:58:00 [facility] VENOUS DOPPLER LEGS 2022-04-08 19:15:00 Stephky [facility]AL [facility] [place] CBC W/PLT COUNT & AUTO 2022-04-08 17:42:00 Prema [facility] DIFFERENTIAL [facility] [place] CBC W/PLT COUNT & AUTO 2022-04-08 17:42:00 Prema [facility] DIFFERENTIAL [facility] BLOOD CULT[facility] 2022-04-08 16:09:[address] [facility] [place] XR CHEST 1 VIEW PORTABLE 2022-04-08 15:24:00 Britney Lloyd [facility] / BEDSIDE [facility] BASIC METABOLIC PANEL 2022-04-08 15:22:00 [facility] LACTIC ACID, VENOUS 2022-04-08 15:22:00 [facility] POCT-GLUCOSE METER 2022-04-08 15:20:00 [facility] POCT-GLUCOSE METER 2022-04-08 11:31:[address] [facility] CT LOWER EXTREMITY 2022-04-08 03:52:00 [facility] WITHOUT IV CONTRAST [facility] XR PELVIS 1 OR 2 VIEWS 2022-04-07 20:23:00 [facility] POCT-GLUCOSE METER 2022-04-07 17:26:00 [facility] TISSUE EXAM 2022-04-07 15:36:00 Heaven Garza [facility] XR PELVIS 1 OR 2 VIEWS 2022-04-07 15:10:00 Heaven Garza [facility] HEMIARTHROPLASTY, HIP 2022-04-07 12:16:00 Heaven Garza [facility] POCT-GLUCOSE METER 2022-04-07 09:49:00 [facility] TYPE AND SCREEN, 2022-04-07 09:12:00 Armani Vela [facility] CBC W/PLT COUNT & AUTO 2022-04-07 06:19:00 Rosa Isela Ching [facility] DIFFERENTIAL [facility] CBC W/PLT COUNT & AUTO 2022-04-07 06:19:00 Rosa Isela Ching [facility] DIFFERENTIAL [facility] URINE CULTURE 2022-04-07 05:15:00 Rosa Isela Ching [facility] URINALYSIS W/ REFLEX 2022-04-07 05:15:00 Rosa Isela Ching [facility] URINE CULTURE [facility] BASIC METABOLIC PANEL 2022-04-07 05:05:00 Rosa Isela Ching [facility] SARS-COV2/RT-PCR ([facility] & 2022-04-06 21:32:00 [facility] CT ABDOMEN PELVIS W 2021-07-24 18:00:55 Glenn Paulson [facility] CONTRAST Medical Branch URINALYSIS 2021-07-24 17:39:00 Singer [facility] LIPASE 2021-07-24 16:33:00 Singer [facility] COMP. METABOLIC PANEL 2021-07-24 16:33:00 Glenn Paulson [facility] ([id number]) Medical Branch CBC WITH DIFF 2021-07-24 16:33:00 Paulson, [facility] NOTICE OF PRIVACY 2021-07-24 16:11:11 Doctor Unassigned, No [facility] PRACTICES Name Medical Branch REPORT OF PROCEDURE - 2021-05-06 16:07:30 Juan Alberto Shelton [facility] ENDOSCOPY URL Center ERCP,DIRECT VISUALIZATION 2021-05-06 15:00:00 Juan Alberto Shelton [facility] SPY GLASS Center PROCEDURE W/ C-ARM 2021-05-06 15:00:00 Juan Alberto Shelton [facility] ERCP,BALLOON SWEEPING 2021-05-06 15:00:00 Juan Alberto Shelton [facility] CBC W/PLT COUNT & AUTO 2021-05-06 05:51:00 [facility] DIFFERENTIAL [facility] BASIC METABOLIC PANEL (7) 2021-05-06 05:51:00 [facility] FUNCTION PANEL 2021-05-06 05:51:00 [facility] ABORH, MANUAL 2021-05-05 05:07:00 Zunilda Rubin [facility] TYPE AND SCREEN, 2021-05-05 04:14:00 Shinthia, Nashid [facility] AUTOMATED Center PROTHROMBIN TIME/INR 2021-05-05 04:14:00 [facility] SARS-COV2/RT-PCR ([facility] & 2021-05-05 00:18:00 Britney Lloyd [facility] REF LABS) [facility] BLOOD GAS, VENOUS 2021-05-05 00:14:00 [facility] KETONE, BLOOD 2021-05-05 00:14:00 [facility] HIGH SENSITIVITY TROPONIN 2021-05-05 00:14:00 [facility] ED ECG INTERPRETATION 2021-05-04 23:15:17 [facility] BASIC METABOLIC PANEL (7) 2021-05-04 21:30:00 [facility] HEPATIC FUNCTION PANEL 2021-05-04 21:30:00 [facility] AMYLASE 2021-05-04 21:30:00 [facility] LIPASE 2021-05-04 21:30:00 [facility] CBC W/PLT COUNT & AUTO 2021-05-04 19:37:00 [facility] ECG 12-LEAD 2021-05-04 19:22:33 Unknown, Hl7 Doctor [facility] POCT-GLUCOSE METER 2021-03-11 08:21:00 [facility] [place] COMPREHENSIVE METABOLIC 2021-03-11 06:09:00 Clive Alfredo [facility] PANEL Center REPORT OF PROCEDURE - 2021-03-10 23:43:51 Allen Chavez [facility] ENDOSCOPY URL [facility] POCT-GLUCOSE METER 2021-03-10 16:43:00 Jessica Bo[facility] [place] POCT-GLUCOSE METER 2021-03-10 12:45:00 [facility] [place] [facility] 2021-03-10 12:02:00 Desiree Duggan [facility] ERCP,PAPILLOTOMY 2021-03-10 11:31:00 Santiagovan [facility] PROCEDURE W/ C-ARM 2021-03-10 11:31:00 [facility] ERCP,BALLOON SWEEPING 2021-03-10 11:31:00 [facility] POCT-GLUCOSE METER 2021-03-10 09:07:00 [facility] CBC (HEMOGRAM ONLY) 2021-03-10 04:50:00 [facility] COMPREHENSIVE METABOLIC 2021-03-10 04:50:00 [facility] PANEL Center HEMOGLOBIN A1C 2021-03-10 04:50:00 [facility] POCT-GLUCOSE METER 2021-03-09 23:54:00 [facility] SARS-COV2/RT-PCR ([facility] & 2021-03-09 20:13:00 Desiree Duggan [facility] REF LABS) [place] POCT-GLUCOSE METER 2021-03-09 17:22:00 [facility] MR ABDOMEN WITHOUT IV 2021-03-09 15:38:00 [facility] CONTRAST MRCP Center POCT-GLUCOSE METER 2021-03-09 12:22:00 [facility] [place] URINALYSIS W/ REFLEX 2021-03-09 10:56:00 [facility] URINE CULTURE Center HEPATIC FUNCTION PANEL 2021-03-09 05:25:00 [facility] PROTHROMBIN TIME/INR 2021-03-09 05:25:00 [facility] MAGNESIUM 2021-03-09 05:25:00 [facility] BASIC METABOLIC PANEL (7) 2021-03-09 05:25:00 [place] [facility] CBC W/PLT COUNT & AUTO 2021-03-09 05:25:00 [place] [facility] HEMOGLOBIN A1C 2021-03-09 05:25:00 [place] [facility] MRI Brain wo contrast 2018-02-08 00:00:[id number] Brain w/wo contrast 2018-02-01 00:00:00 [id number] Plan of Care Planned Activity Planned Date Details Comments Source Future Scheduled 2023-05-[address] [...] Test 00:00:00 (Season Ended) [code = Medic mi Center INFLUENZA VACCINE (Season Ended)] Future Scheduled [...] St Jasmyn kes Test 00:00:00 measurement (procedure) [facility] josephine Center [code = [id number]] Future Scheduled 2021-09-[address] [facility] k[facility] Test 00:00:00 measurement (procedure) Medi josephine Center [code = [id number]] Future Scheduled 2021-09-[address] [facility]asm[facility] k[facility] Test 00:00:00 measurement (procedure) [facility] josephine Center [code = [id number]] Future Scheduled 2021-09-[address] [facility]asm[facility] k[facility] Test 00:00:00 measurement (procedure) [facility] [code = [id number]] Future Scheduled 2021-09-[address] Jasm[facility] kes Test 00:00:00 measurement (procedure) [facility] josephine Center [code = [id number]] Future Scheduled 2021-09-[address] Jasm[facility] kes Test 00:00:00 measurement (procedure) [facility] [code = [id number]] Future Scheduled 2021-09-[address] [facility]asm[facility] kes Test 00:00:00 measurement (procedure) [facility] [code = [id number]] Future Scheduled 2021-09-[address] [facility]asm[facility] kes Test 00:00:00 measurement (procedure) [facility] [code = [id number]] Future Scheduled 2021-09-[address] [facility]asm[facility] kes Test 00:00:00 measurement (procedure) [facility] [code = [id number]] Future Scheduled 2021-09-[address] Jasm[facility] kes Test 00:00:00 measurement (procedure) [facility] [code = [id number]] Future Scheduled 2021-09-[address] [facility]00 [facility]procedure[facility] [code = [id number]] Future Scheduled 2021-09-[address] [facility] 00:00:00 measurement (procedure) [facility] [code = [id number]] Future Scheduled 2021-09-[address] [facility] 00:[facility]00 [facility] (procedure) [facility] [code = [id number]] Future Scheduled 2021-05-13 INFLUENZA VACCINE (#1) [facility] - [id number] PCV13) [code = PNEUMOCOCCAL 65+ YRS (1 of 1 - [id number]_Hytshxj PCV13)] Future Scheduled 2013 PNEUMOCOCCAL 65+ YRS ([address] [facility] 00:00:00 of 1 - [id number]_Pytgpev [facility] PCV13) [code = PNEUMOCOCCAL 65+ YRS (1 of 1 - WURT17_Teywnyx PCV13)] Future Scheduled 2013 PNEUMOCOCCAL 65+ YRS ([address] [facility] 00:00:00 of 1 - [id number]_Xnhdjlh [facility] PCV13) [code = PNEUMOCOCCAL 65+ YRS (1 of 1 - [id number]_Gaengdv PCV13)] Future Scheduled 2013 PNEUMOCOCCAL 65+ YRS ([address] [facility] 00:00:00 of 1 - [id number]_Yvrbyrx [facility] PCV13) [code = PNEUMOCOCCAL 65+ YRS (1 of 1 - [id number]_Miztecq PCV13)] Future Scheduled 2013 PNEUMOCOCCAL 65+ YRS [...] 00:00:00 examination Medical Center (regime/therapy) [code = 706437138] Future Scheduled 1958 Urine screening for [facility] 00:00:00 protein (procedure) [facility] [code = 470283306] Future Scheduled 1958 DIABETIC EYE EXAM [code [facility] 00:00:00 = DIABETIC EYE EXAM] [facility] Future Scheduled [address] [facility] examination [facility] (regime/therapy) [code = 218693074] Future Scheduled 1958 Urine screening for [facility] 00:00:00 protein (procedure) [facility] [code = 322489297] Future Scheduled 1958 DIABETIC EYE EXAM [code [facility] 00:00:00 = DIABETIC EYE EXAM] [facility] Future Scheduled [address] [facility] 00[facility]00 examination [facility] (regime/therapy) [code = 638643755] Future Scheduled 1958 Urine screening for [facility] 00:00:00 protein (procedure) [facility] [code = 213069199] Future Scheduled 1958 DIABETIC EYE EXAM [code [facility] 00:00:00 = DIABETIC EYE EXAM] [facility] Future Scheduled [address] [facility] 00:[facility]:00 examination [facility] (regime/therapy) [code = 961835314] Future Scheduled 1958 Urine screening for [facility] 00:00:00 protein (procedure) [facility] [code = 608072863] Future Scheduled 1958 DIABETIC EYE EXAM [code [facility] 00:00:00 = DIABETIC EYE EXAM] [facility] Future Scheduled [address] [facility] 00:[facility]:00 examination [facility] (regime/therapy) [code = 842824982] Future Scheduled 1958 Urine screening for [facility] 00:00:00 protein (procedure) [facility] [code = 582252494] Future Scheduled 1958 DIABETIC EYE EXAM [code [facility] 00:00:00 = DIABETIC EYE EXAM] [facility] Future Scheduled [address] [facility] 00:[facility]:00 examination [facility] (regime/therapy) [code = 531140445] Future Scheduled 1958 Urine screening for [facility] 00:00:00 protein (procedure) [facility] [code = 375294080] Future Scheduled 1958 DIABETIC EYE EXAM [code [facility] 00:00:00 = DIABETIC EYE EXAM] [facility] Future Scheduled [address] [facility] 00:[facility]:00 examination [facility] (regime/therapy) [code = 419967100] Future Scheduled 1958 Urine screening for [facility] 00:00:00 protein (procedure) [facility] [code = 572341687] Future Scheduled 1958 DIABETIC EYE EXAM [code [facility] 00:00:00 = DIABETIC EYE EXAM] [facility] Future Scheduled [address] [facility] 00:00:00 examination [facility] (regime/therapy) [code = 661408694] Future Scheduled 1958 Urine screening for [facility] 00:00:00 protein (procedure) [facility] [code = 762974391] Future Scheduled 1958 DIABETIC EYE EXAM [code [facility] 00:00:00 = DIABETIC EYE EXAM] [facility] Future Scheduled [address] [facility] 00:[facility]:00 examination [facility] (regime/therapy) [code = 830092210] Future Scheduled 1958 Urine screening for [facility] 00:00:00 protein (procedure) [facility] [code = 319373494] Future Scheduled 1958 DIABETIC EYE EXAM [code [facility] 00:00:00 = DIABETIC EYE EXAM] [facility] Future Scheduled [address] [facility] 00:[facility]:00 examination [facility] (regime/therapy) [code = 250929137] Future Scheduled 1958 Urine screening for [facility] 00:00:00 protein (procedure) [facility] [code = 536810353] Future Scheduled 1958 DIABETIC EYE EXAM [code [facility] 00:00:00 = DIABETIC EYE EXAM] [facility] Future Scheduled [address] [facility] 00:[facility]:00 examination [facility] (regime/therapy) [code = 382200727] Future Scheduled 1958 Urine screening for [facility] 00:00:00 protein (procedure) [facility] [code = 892541772] Future Scheduled 1958 DIABETIC EYE EXAM [code [facility] 00:00:00 = DIABETIC EYE EXAM] [facility] Future Scheduled [address] [facility] 00:00:00 examination [facility] (regime/therapy) [code = 481595186] Future Scheduled 1958 Urine screening for [facility] 00:00:00 protein (procedure) [facility] [code = 372224971] Future Scheduled 1958 DIABETIC EYE EXAM [code [facility] 00:00:00 = DIABETIC EYE EXAM] [facility] Future Scheduled [address] [facility] 00:00:00 examination [facility] Center (regime/therapy) [code = 803347633] Future Scheduled 1958 Urine screening for [facility] 00:00:00 protein (procedure) [facility] [code = 030239244] Future Scheduled 1954 PNEUMOCOCCAL 65+ YRS (1 [...] breast Medical C enter (procedure) [code = 105510046] Future Scheduled 1948 Screening for malignant [facility] 00:00:00 neoplasm of colon Medical Ce nter (procedure) [code = 606774432] Future Scheduled 1948 Screening for malignant [facility] 00:00:00 neoplasm of breast Medical C enter (procedure) [code = 579156216] Future Scheduled 1948 Screening for malignant [facility] 00:00:00 neoplasm of colon [facility] Ce [facility]ter (procedure) [code = 974668978] Future Scheduled 1948 Screening for malignant [facility] 00:00:00 neoplasm of breast Medical C enter (procedure) [code = 107751831] Future Scheduled 1948 Screening for malignant [facility] 00:00:00 neoplasm of colon [facility] Ce [facility]ter (procedure) [code = 968788902] Future Scheduled 1948 Screening for malignant [facility] 00:00:00 neoplasm of breast Medical C enter (procedure) [code = 827731859] Future Scheduled 1948 Screening for malignant [facility] 00:00:00 neoplasm of colon [facility] Ce [facility] (procedure) [code = 464085472] Future Scheduled 1948 Screening for malignant [facility] 00:00:00 neoplasm of breast Medical C enter (procedure) [code = 470883644] Future Scheduled 1948 CT Colonography (combo) [facility] 00:00:00 [code = CT Colonography [facility] (combo)] Future Scheduled 1948 Screening for malignant [facility] 00:00:00 neoplasm of colon Medical Ce nter (procedure) [code = 436606747] Future Scheduled 1948 Screening for malignant [facility] 00:00:00 neoplasm of colon Medical Ce nter (procedure) [code = 158418149] Future Scheduled 1948 DXA SCAN [code = DXA [facility] 00:00:00 SCAN] [facility] Future Scheduled 1948 Screening for malignant [facility] 00:00:00 neoplasm of colon Medical Ce nter (procedure) [code = 826431610] Future Scheduled 1948 Screening for malignant [facility] 00:00:00 neoplasm of colon Medical Ce nter (procedure) [code = 200077550] Future Scheduled 1948 Sigmoidoscopy [facility]code = [facility]] [facility] Future Scheduled 1948 Screening for malignant [facility] 00:00:00 neoplasm of breast Medical C enter (procedure) [code = 739628779] Future Scheduled 1948 CT Colonography (combo) [facility] 00:00:00 [code = CT Colonography [facility] (combo)] Future Scheduled 1948 Screening for malignant [facility] 00:00:00 neoplasm of colon Medical Ce nter (procedure) [code = 886579402] Future Scheduled 1948 Screening for malignant [facility] 00:00:00 neoplasm of colon Medical Ce nter (procedure) [code = 632192863] Future Scheduled 1948 DXA SCAN [code = DXA [facility] 00:00:00 SCAN] [facility] Future Scheduled 1948 Screening for malignant [facility] 00:00:00 neoplasm of colon Medical Ce nter (procedure) [code = 896320744] Future Scheduled 1948 Screening for malignant [facility] 00:00:00 neoplasm of colon Medical Ce nter (procedure) [code = 243202593] Future Scheduled 1948 Sigmoidoscopy [code = [facility] S[facility]] [facility] Future Scheduled 1948 Screening for malignant [facility] 00:00:00 neoplasm of breast Medical C enter (procedure) [code = 585124110] Future Scheduled 1948 CT Colonography (combo) [facility] 00:00:00 [code = CT Colonography [facility] (combo)] Future Scheduled 1948 Screening for malignant [facility] 00:00:00 neoplasm of colon Medical Ce [facility]ter (procedure) [code = 670227273] Future Scheduled 1948 Screening for malignant [facility] 00:00:00 neoplasm of colon Medical Ce nter (procedure) [code = 841165636] Future Scheduled 1948 DXA SCAN [code = DXA [facility] 00:00:00 SCAN] [facility] Future Scheduled 1948 Screening for malignant [facility] 00:00:00 neoplasm of colon Medical Ce nter (procedure) [code = 365042137] Future Scheduled 1948 Screening for malignant [facility] 00:00:00 neoplasm of colon Medical Ce nter (procedure) [code = 103110259] Future Scheduled 1948 Sigmoidoscopy [code = [facility]] [facility] Future Scheduled 1948 Screening for malignant [facility] 00:00:00 neoplasm of breast Medical C enter (procedure) [code = 407712950] Future Scheduled 1948 CT Colonography (combo) [facility] 00:00:00 [code = CT Colonography [facility] (combo)] Future Scheduled 1948 Screening for malignant [facility] 00:00:00 neoplasm of colon Medical Ce nter (procedure) [code = 183610557] Future Scheduled 1948 Screening for malignant [facility] 00:00:00 neoplasm of colon Medical Ce nter (procedure) [code = 581128069] Future Scheduled 1948 DXA SCAN [code = DXA [facility] 00:00:00 SCAN] [facility] Future Scheduled 1948 Screening for malignant [facility] 00:00:00 neoplasm of colon Medical Ce nter (procedure) [code = 154570029] Future Scheduled 1948 Screening for malignant [facility] 00:00:00 neoplasm of colon Medical Ce nter (procedure) [code = 740718051] Future Scheduled 1948 Sigmoidoscopy [facility]code = [facility]] [facility] Future Scheduled 1948 Screening for malignant [facility] 00:00:00 neoplasm of breast Medical C enter (procedure) [code = 441196226] Future Scheduled 1948 CT Colonography (combo) [facility] 00:00:00 [code = CT Colonography [facility] (combo)] Future Scheduled 1948 Screening for malignant [facility] 00:00:00 neoplasm of colon Medical Ce nter (procedure) [code = 489118875] Future Scheduled 1948 Screening for malignant [facility] 00:00:00 neoplasm of colon Medical Ce nter (procedure) [code = 584089341] Future Scheduled 1948 DXA SCAN [code = DXA [facility] 00:00:00 SCAN] [facility] Future Scheduled 1948 Screening for malignant [facility] 00:00:00 neoplasm of colon Medical Ce nter (procedure) [code = 987789135] Future Scheduled 1948 Screening for malignant [facility] 00:00:00 neoplasm of colon Medical Ce nter (procedure) [code = 485858785] Future Scheduled 1948 Sigmoidoscopy [facility]code [facility]] [facility] Future Scheduled 1948 Screening for malignant [facility] 00:00:00 neoplasm of breast Medical C enter (procedure) [code = 572819612] Future Scheduled 1948 CT Colonography (combo) [facility] 00:00:00 [code = CT Colonography [facility] (combo)] Future Scheduled 1948 Screening for malignant [facility] 00:00:00 neoplasm of colon Medical Ce nter (procedure) [code = 538379123] Future Scheduled 1948 Screening for malignant [facility] 00:00:00 neoplasm of colon Medical Ce nter (procedure) [code = 156174441] Future Scheduled 1948 DXA SCAN [code = DXA [facility] 00:00:00 SCAN] [facility] Future Scheduled 1948 Screening for malignant [facility] 00:00:00 neoplasm of colon Medical Ce nter (procedure) [code = 972846631] Future Scheduled 1948 Screening for malignant [facility] 00:00:00 neoplasm of colon Medical Ce nter (procedure) [code = 816186200] Future Scheduled 1948 S[facility]oidoscopy [facility] 1948 Screening for malignant [facility] 00:00:00 neoplasm of breast Medical C enter (procedure) [code = 618618864] Future Scheduled 1948 CT Colonography (combo) [facility] 00:00:00 [code = CT Colonography [facility] (combo)] Future Scheduled 1948 Screening for malignant [facility] 00:00:00 neoplasm of colon Medical Ce nter (procedure) [code = 322372907] Future Scheduled 1948 Screening for malignant [facility] 00:00:00 neoplasm of colon Medical Ce nter (procedure) [code = 553848946] Future Scheduled 1948 DXA SCAN [code = DXA [facility] 00:00:00 SCAN] [facility] Future Scheduled 1948 Screening for malignant [facility] 00:00:00 neoplasm of colon Medical Ce nter (procedure) [code = 764673075] Future Scheduled 1948 Screening for malignant [facility] 00:00:00 neoplasm of colon Medical Ce nter (procedure) [code = 208257071] Future Scheduled 1948 Sigmoidoscopy [code = [facility]oidoscopy] [facility] Future Scheduled 1948 Screening for malignant [facility] 00:00:00 neoplasm of breast Medical C enter (procedure) [code = 598810536] Future Scheduled 1948 CT Colonography (combo) [facility] 00:00:00 [code = CT Colonography [facility] (combo)] Future Scheduled 1948 Screening for malignant [facility] 00:00:00 neoplasm of colon Medical Ce nter (procedure) [code = 801328131] Future Scheduled 1948 Screening for malignant [facility] 00:00:00 neoplasm of colon Medical Ce nter (procedure) [code = 844273175] Future Scheduled 1948 DXA SCAN [code = DXA [facility] 00:00:00 SCAN] [facility] Future Scheduled 1948 Screening for malignant [facility] 00:00:00 neoplasm of colon Medical Ce nter (procedure) [code = 788130891] Future Scheduled 1948 Screening for malignant [facility] 00:00:00 neoplasm of colon Medical Ce nter (procedure) [code = 642878905] Future Scheduled 1948 Sigmoidoscopy [code = [facility]] [facility] Future Scheduled 1948 Screening for malignant [facility] 00:00:00 neoplasm of colon Medical Ce nter (procedure) [code = 765681652] Future Scheduled 1948 Screening for malignant [facility] 00:00:00 neoplasm of breast Medical C enter (procedure) [code = 760989817] Future Scheduled 1948 CT Colonography (combo) [facility] 00:00:00 [code = CT Colonography [facility] (combo)] Future Scheduled 1948 Sigmoidoscopy [code = [facility] S[facility]oidoscopy] [facility] Future Scheduled 1948 Screening for malignant [facility] 00:00:00 neoplasm of breast Medical C enter (procedure) [code = 357797711] Future Scheduled 1948 CT Colonography (combo) [facility] 00:00:00 [code = CT Colonography [facility] (combo)] Future Scheduled 1948 Screening for malignant [facility] 00:00:00 neoplasm of colon Medical Ce nter (procedure) [code = 599670497] Future Scheduled 1948 Screening for malignant [facility] 00:00:00 neoplasm of colon Medical Ce nter (procedure) [code = 871399388] Future Scheduled 1948 Screening for malignant [facility] 00:00:00 neoplasm of colon Medical Ce nter (procedure) [code = 363437663] Future Scheduled 1948 DXA SCAN [code = DXA [facility] 00:00:00 SCAN] [facility] Future Scheduled 1948 Screening for malignant [facility] 00:00:00 neoplasm of colon Medical Ce nter (procedure) [code = 755573401] Future Scheduled 1948 Screening for malignant [facility] 00:00:00 neoplasm of colon Medical Ce nter (procedure) [code = 839485047] Future Scheduled 1948 Screening for malignant [facility] 00:00:00 neoplasm of colon Medical Ce nter (procedure) [code = 444441847] Future Scheduled 1948 DXA SCAN [code = DXA [facility] 00:00:00 SCAN] [facility] Future Scheduled 1948 Screening for malignant [facility] 00:00:00 neoplasm of colon Medical Ce nter (procedure) [code = 095370665] Future Scheduled 1948 Screening for malignant [facility] 00:00:00 neoplasm of breast Medical C enter (procedure) [code = 541340333] Future Scheduled 1948 CT Colonography (combo) [facility] 00:00:00 [code = CT Colonography [facility] (combo)] Future Scheduled 1948 Screening for malignant [facility] 00:00:00 neoplasm of colon Medical Ce nter (procedure) [code = 400317351] Future Scheduled 1948 Screening for malignant [facility] 00:00:00 neoplasm of colon Medical Ce nter (procedure) [code = 064896307] Future Scheduled 1948 Sigmoidoscopy [facility]code = [facility]] [facility] Future Scheduled 1948 DXA SCAN [code = DXA [facility] 00:00:00 SCAN] [facility] Future Scheduled 1948 Screening for malignant [facility] 00:00:00 neoplasm of colon Medical Ce nter (procedure) [code = 173250317] Future Scheduled 1948 Screening for malignant [facility] 00:00:00 neoplasm of colon Medical Ce nter (procedure) [code = 004636586] Future Scheduled 1948 Sigmoidoscopy [code = [facility] 1948 Screening for malignant [facility] 00:00:00 neoplasm of colon Medical Ce nter (procedure) [code = 779889217] Future Scheduled 1948 Sigmoidoscopy [code = [facility] 00:[facility]] [facility] Future Scheduled 1948 Screening for malignant [facility] 00:00:00 neoplasm of breast Medical C enter (procedure) [code = 453679497] Future Scheduled 1948 CT Colonography (combo) [facility] 00:00:00 [code = CT Colonography [facility] (combo)] Future Scheduled 1948 Screening for malignant [facility] 00:00:00 neoplasm of colon Medical Ce nter (procedure) [code = 637374045] Future Scheduled 1948 Screening for malignant [facility] 00:00:00 neoplasm of colon Medical Ce nter (procedure) [code = 912749766] Future Scheduled 1948 DXA SCAN [code = DXA [facility] 00:00:00 SCAN] [facility] Future Scheduled 1948 Screening for malignant [facility] 00:00:00 neoplasm of colon Medical Ce nter (procedure) [code = 115602565] Future Scheduled 1948 Screening for malignant [facility] 00:00:00 neoplasm of colon Medical Ce nter (procedure) [code = 379043701] Future Scheduled 1948 Sigmoidoscopy [code = [facility] S[facility]oscopy] [facility] Future Scheduled 1948 Screening for malignant [facility] 00:00:00 neoplasm of breast Medical C enter (procedure) [code = 208912376] Future Scheduled 1948 CT Colonography (combo) [facility] 00:00:00 [code = CT Colonography [facility] (combo)] Future Scheduled 1948 Screening for malignant [facility] 00:00:00 neoplasm of colon Medical Ce nter (procedure) [code = 405098451] Future Scheduled 1948 Screening for malignant [facility] 00:00:00 neoplasm of colon Medical Ce nter (procedure) [code = 995425178] Future Scheduled 1948 DXA SCAN [code = DXA [facility] 00:00:00 SCAN] [facility] Future Scheduled 1948 Screening for malignant [facility] 00:00:00 neoplasm of colon Medical Ce nter (procedure) [code = 497303331] Future Scheduled 1948 Screening for malignant [facility] 00:00:00 neoplasm of colon Medical Ce nter (procedure) [code = 088388930] Future Scheduled 1948 Sigmoidoscopy [code [facility]] [facility] Future Scheduled 1948 Screening for malignant [facility] 00:00:00 neoplasm of breast Medical C enter (procedure) [code = 639331245] Future Scheduled 1948 CT Colonography (combo) [facility] 00:00:00 [code = CT Colonography [facility] (combo)] Future Scheduled 1948 Screening for malignant [facility] 00:00:00 neoplasm of colon Medical Ce nter (procedure) [code = 365383927] Future Scheduled 1948 Screening for malignant [facility] 00:00:00 neoplasm of colon Medical Ce nter (procedure) [code = 386269042] Future Scheduled 1948 Screening for malignant [facility] 00:00:00 neoplasm of breast Medical C enter (procedure) [code = 612137363] Future Scheduled 1948 DXA SCAN [code = DXA [facility] 00:00:00 SCAN] [facility] Future Scheduled 1948 Screening for malignant [facility] 00:00:00 neoplasm of colon Medical Ce nter (procedure) [code = 549512778] Future Scheduled 1948 Screening for malignant [facility] 00:00:00 neoplasm of colon Medical Ce nter (procedure) [code = 064468993] Future Scheduled 1948 Sigmoidoscopy [facility]code = [facility] (combo) [facility] 00:00:00 [code = CT Colonography [facility] (combo)] Future Scheduled 1948 Screening for malignant [facility] 00:00:00 neoplasm of breast Medical C enter (procedure) [code = 994799115] Future Scheduled 1948 CT Colonography (combo) [facility] 00:00:00 [code = CT Colonography [facility] (combo)] Future Scheduled 1948 Screening for malignant [facility] 00:00:00 neoplasm of colon Medical Ce nter (procedure) [code = 566646650] Future Scheduled 1948 Screening for malignant [facility] 00:00:00 neoplasm of colon Medical Ce nter (procedure) [code = 449917049] Future Scheduled 1948 DXA SCAN [code = DXA [facility] 00:00:00 SCAN] [facility] Future Scheduled 1948 Screening for malignant [facility] 00:00:00 neoplasm of colon Medical Ce nter (procedure) [code = 053605247] Future Scheduled 1948 Screening for malignant [facility] 00:00:00 neoplasm of colon Medical Ce nter (procedure) [code = 547787277] Future Scheduled 1948 Screening for malignant [facility] 00:00:00 neoplasm of colon Medical Ce nter (procedure) [code = 340506866] Future Scheduled 1948 Sigmoidoscopy [code = [facility] 00:[facility]oscopy] [facility] Future Scheduled 1948 Screening for malignant [facility] 00:00:00 neoplasm of colon Medical Ce nter (procedure) [code = 864878116] Future Scheduled 1948 Screening for malignant [facility] 00:00:00 neoplasm of breast Medical C enter (procedure) [code = 192704704] Future Scheduled 1948 CT Colonography (combo) [facility] 00:00:00 [code = CT Colonography [facility] (combo)] Future Scheduled 1948 Screening for malignant [facility] 00:00:00 neoplasm of colon Medical Ce nter (procedure) [code = 498584392] Future Scheduled 1948 Screening for malignant [facility] 00:00:00 neoplasm of colon Medical Ce nter (procedure) [code = 026628467] Future Scheduled 1948 DXA SCAN [code = DXA [facility] 00:00:00 SCAN] [facility] [facility] Screening for malignant [facility] 00:00:00 neoplasm of colon Medical Ce nter (procedure) [code = 735312956] Future Scheduled 1948 Screening for malignant [facility] 00:00:00 neoplasm of colon Medical Ce nter (procedure) [code = 206249391] Future Scheduled 1948 Sigmoidoscopy [code = [facility]] [facility] Future Scheduled 1948 DXA SCAN [code = DXA [facility] 00:00:00 SCAN] [facility] Future Scheduled 1948 Screening for malignant [facility] Test 00:00:00 neoplasm of breast Medical C enter (procedure) [code = 090903408] Future Scheduled 1948 CT Colonography (combo) [facility] 00:00:00 [code = CT Colonography [facility] (combo)] Future Scheduled 1948 Screening for malignant [facility] Test 00:00:00 neoplasm of colon Medical Ce nter (procedure) [code = 978283463] Future Scheduled 1948 Screening for malignant [facility] Test 00:00:00 neoplasm of colon Medical Ce nter (procedure) [code = 448629115] Future Scheduled 1948 Screening for malignant [facility] 00:00:00 neoplasm of colon Medical Ce nter (procedure) [code = 479243978] Future Scheduled 1948 DXA SCAN [code = DXA [facility] 00:00:00 SCAN] [facility] Future Scheduled 1948 Screening for malignant [facility] Test 00:00:00 neoplasm of colon Medical Ce nter (procedure) [code = 684884316] Future Scheduled 1948 Screening for malignant [facility] 00:00:00 neoplasm of colon Medical Ce nter (procedure) [code = 316614985] Future Scheduled 1948 Sigmoidoscopy [code = [facility] Sigm[facility]oscopy] Medical Cente r Encounters Start End Encounter Admission Attending Care Care Encounter Source Date/Time Date/Time Type Type Clinicians Facility Department ID 2022-04-06 [facility] [id number] [facility] 16:46:00 Encounter Jessica Gomez [facility] 2021-06-21 Inpatient ER ADIO, [facility] [id number] SLE 02:39:12 [place] 2023-03-02 2023-03-02 Orders Doctor HEAVEN 1.2.840.114 [id number] Univers 00:00:00 00:00:00 Only Unassigned, ARIS 350.1.13.10 ity of [facility] 4.2.7.2.686 Arnie as [phone] [address] 2023-01-05 2023-01-05 Orders Doctor HEAVEN 1.2.840.114 [id number] Univers 00:00:00 00:00:00 Only Unassigned, ARIS 350.1.13.10 ity [facility] 4.2.7.2.686 Arnie as [phone] [address] 2022-10-27 2022-10-27 Outpatient R [facility] [id number] Univers 14:45:00 14:45:00 [place] gail [facility] 2022-10-21 2022-10-21 Outpatient R [facility] [id number] Univers 09:45:00 10:16:42 [place] wolf [facility] 2022-10-21 2022-10-[address] [facility] [id number] Univers 09:45:00 10:16:42 Visit Baldomero Codewars 350.1.13.10 it [facility] 4.2.7.2.686 Arnie as DERIK?BLEA [phone] [address] MEDICAL OFFICE [facility] 2022-10-13 2022-10-13 Outpatient R [facility] [id number] Univers 15:30:00 15:30:00 [place] wolf [facility] 2022-10-11 2022-10-11 [facility] 1.2.840.114 [id number] Univers 00:00:00 00:00:00 Baldomero Camacho Codewars 350.1.13.10 it y of [place] 4.2.7.2.686 Arnie as DERIK?BLEA [phone] Pr debi[address] MEDICAL OFFICE BUILDING 2022-10-08 2022-10-08 Telephone Maira [facility] 1.2.840.114 [id number] Univers 00:00:00 00:00:00 Baldomero ANGLIN 350.1.13.10 it y of [place] 4.2.7.2.686 Arnie as DERIK?BLEA [phone] Pr jermaine JOHNSON [address] [facility] OFFICE [facility] 2022-10-06 2022-10-06 Telephone Maira [facility] 1.2.840.114 [id number] Univers 00:00:00 00:00:00 Baldomero ANGLIN 350.1.13.10 it y of [place] 4.2.7.2.686 Arnie as DERIK?BLEA [phone] Pr jermaine JOHNSON [address] [facility] OFFICE [facility] 2022-10-04 2022-10-04 Account Services Specialist Lab, [facility] 1.2.840.1 [id number] Univers 15:15:00 15:30:00 Visit Baldomero Rao 350.1.13.10 ity [facility] 4.2.7.2.686 Arnie as DERIK?BLEA [phone] Pr jermaine JOHNSON [address] [facility] OFFICE [facility] 2022-10-04 2022-10-04 Outpatient R [facility] [id number] Univers 14:30:00 15:22:10 [place] itwolf [facility] 2022-10-04 2022-10-04 Office [facility] [id number] Univers 14:30:00 15:22:10 Visit Baldomero ANGLIN 350.1.13.10 it y of [place] 4.2.7.2.686 Arnie as DERIK?BLEA [phone] Pr jermaine JOHNSON [address] [facility] OFFICE [facility] 2022-10-04 2022-10-04 Orders Doctor HEAVEN 1.2.840.114 [id number] Univers 00:00:00 00:00:00 Only Unassigned, ARIS 350.1.13.10 ity of [place] [facility] 4.2.7.2.686 Arnie as [phone] [address] 2022-10-01 2022-10-01 Telephone [facility] 1.2.840.114 [id number] Univers 00:00:00 00:00:00 [facility] 350.1.13.10 it y of [place] 4.2.7.2.686 Arnie as DERIK?BLEA [phone] Me dic[address] MEDICAL OFFICE BUILDING 2022-09-28 2022-09-28 Orders Doctor HEAVEN 1.2.840.114 [id number] Univers 00:00:00 00:00:00 Only Unassigned, ARIS 350.1.13.10 ity of [place] [facility] 4.2.7.2.686 Arnie as [phone] [address] 2022-04-06 2022-04-13 Hospital ER Jessica Booneruth [facility] [id number] 16:50:00 19:40:00 Encounter Rosa Isela Ching [facility] 2022-04-06 2022-04-13 Inpatient ER [facility] Surgery [id number] [facility] 16:50:00 19:40:00 [facility] 2022-04-07 2022-04-07 Anesthesia Cerna, [facility] [id number] 12:31:00 16:21:00 Event Taylor-Kiarra Amanda [facility] 2022-04-07 2022-04-07 Surgery Greg, [facility] [id number] 12:00:00 14:51:00 Heaven Carbajal [facility] 2022-04-07 2022-04-07 Travel [facility] [id number] [facility] 00:[facility]:00 00:00:00 [facility] 2021-07-24 2021-07-24 Emergency X [facility] ERT [id number] Univers 10:12:00 14:31:00 GLENN reynolds [facility] 2021-07-24 2021-07-24 Emergency Singer [facility] [id number] Univers 10:12:00 14:31:00 Glenn DONATO 350.1.13.10 i ty [facility] 4.2.7.2.686 [facility] [phone] [facility] josephine 084 Branch 2021-05-04 2021-05-07 Hospital ER Cherie Faustin [facility] [id number] 17:37:00 10:59:00 [facility] 2021-05-06 2021-05-[address] [facility] [id number] 15:10:00 16:27:00 Event Jm Rushing [facility] 2021-05-06 2021-05-[address] [facility] [id number] 13:00:00 14:30:00 [facility] 2021-05-05 2021-05-05 Travel [facility] [id number] [facility] 00:[facility]:00 00:00:00 [facility] 2021-05-04 2021-05-04 Emergency ER SLE Emergency [id number] SLE 17:24:00 17:24:00 2021-05-04 2021-05-[address] [facility] [id number] 00:00:00 00:00:00 Only [facility] 2021-05-04 2021-05-04 Travel [facility] [id number] [facility] 00:[facility]:00 00:00:00 [facility] 2021-05-01 2021-05-01 [id number] 16:21:00 22:56:00 [facility] 2021-03-13 2021-03-[address] [facility] [id number] 00:00:00 00:00:00 Tyesha Mojica [facility] 2021-03-08 2021-03-11 Hospital ER Paola Burnett Maribel [facility] [id number] 23:13:00 11:35:00 Encounter [facility] 2021-03-10 2021-03-10 [facility] [id number] 11:00:00 12:30:00 Allen Rm Medic [facility] 2021-03-10 2021-03-[address] [facility] [id number] 11:36:00 12:27:00 Event Graciela [facility] 2018-02-01 2018-02-01 BRENDAN [facility] [id number] [place] 08:00:00 08:00:00 t; HOLLIE ACUÑA Phy sici CHRISTINA, M.D. ans M.D. Results Test Description Test Time Test Comments Results Result Comments Source Tissue Exam 2022-04-14 16:40:15 Test Item Value Reference Range Interpretation Comme nts Case Report (test code = 104) Surgical Pathology Report Case: [id number] Authorizing Provider: Heaven Garza MD Collected: 04/07/2022 03:36 PM Ordering Location: [facility] PERIOPERATIVE Received: 04/07/2022 04:23 PM SERVICES Pathologist: Omari Lora MD Specimen: Femoral Head, Right Hip DIAGNOSIS (test code = 3220) u1kkjTVcQOBnf0lpYJTizCZuQwXbEwSkOxRhRv pc dWMxIHtccnRmMVxlcGljOTYwMlxhbnNpXHNwbHRw E4JshrvnWPdiAS9rCM3oaOqdeEGldFDhCSPrRsGa n1fiw995zDAvt4xzZUSCabrknSs8qCpfS99ln6Q1 YadvO56plRPmBLU6WXJbQAWyiWRyMCWwLVM6BHMx pHLzT8gnTIDeDW8nbdwjNVezSMwnXTFwnYR4HIMf gKSnQ1KmMSEnUUskSLZkgmx9SbZhCp6aqUGcsPbw RCxtHEDrFLVcUVikGYOjIyEgOm5FHLxyUozLWWTg AlXIV0BTKNKIXCRAUHAZGgSKWl8IXVPWETjsgQUd MSZjHWHDVjfXPtpwES4UVLmYXF9XLtnAN7NgOKYR RPCOPVDGIFVQHQYBHXHTUgJEZTBGFNCJSW4WOXWn F22ZC6xHMWVOMVKHOAMFUTpTR0STLwajM6VxOlZD W4FALrLjjGAnKUGjDPGLKuVDAJrQC51YEfWXQCIX TF6zaRGsiGqmkoAgTCfjg9DpDNtjGTXlZC5rbNed OAOeFW0nVJTsQ8txbQ8mpfa7YeSaQBPfLpP1BMIz pxG1Mqx2FORoJQkry9xnz5KdFZPzRNw4yPajUwWc HSElt4ojuzNsYaFiIZCdPGZhZMJryHOmQ403f9oh o8surpUibPC2FSYbCZM0AWwitkZbfnI8VFmqlWPc GdL8SPfmjuNtEIjfmbEmleQsXqz9VRXfS885YIY2 fJqpc3orXVG6XMNiODMaEcOyPv5byVCrU560GJAm FQCMCIFpcQi6OAGurtOutpYtnPCPv068Z177x4oc CUDtyhYhiKlFsqtla4qcK262UPYrpGPhygEbDfQw FTIzkUKhqPP5DEPdTB4vkgtgQOjpMPsxSJRmwkC3 NKIggKGsN0ZdDFMbMG8mbevkSID4BDkuFEYtQHK9 QwXnEAQeg6Lhfcj3IoKoak4ptr57QZC4f5KygGxd YBX2DFU8JzAqCd7lrKBxTPQdGQ8nQoSrdWPjFCYx ra36vMqfKMiyXWI6KVYrazZls2Sje6hjUdQrnbMk S8auR5IvPJLrJLHxISWkWfDuajMzt3Mdb1ClgJPk qEa6r0ejYVNbFVRetVwns2jbCPV0KFZpwEMhG7hf sZ6nVKIvOI8bchacl9khFOibUOtoOUIccSM4shP8 QGPooLKsV7PkuK0nSVIiTJqrDSVrqfe0TqDpJs4n dGVyeTcyMFxzYmtwYWdlXHBnbmNvbnRccGduZGVj XHBsYWluXHBsYWluXGYwXGZzMjRccWxcbGFuZzEw YzFtfZeqjJcjGPsaPeMgLGThSYrdC6awQyYvTnYw Utm2PEMziFMfRHFrAxp5WYUymIUdZJVDiVsysD6q SUIcrFuexN4rdCL3XKVfsqMftMJNdE9cXTLHiR1d TaG3VuCsUuF4QZf0NpXahJQvhK9= CPT Code(s) (test code = 3357) h4awoBPoDWZlzYW7HfNlQRMtq8lic1UnkLUy cGFy XOcyzDPrlpRnid76gWU5oJ42SD0bKWCfVkU1JGZj juY5Von6HMGrXHKfwJHiN481n7box3xehyCwdSI9 fTudDVBqpcmoPmG7OXbqEIZkpsgvVWm0JLpjEEWy tJV3RYMdkMBwL6MlYSXfRN6tvrw0DXX6SFcjWCNa IvX9NGYhmSEmCXDidMuqHOiaj730XLH4CaZeHOGr hvXuqQjxqH4kWqMaXAR0BSMiRMklDXuvKBUgcYLm fQ== CLINICAL HISTORY (test code = 3356) w7ddeVEeOPHopEU2ToIeRWGzy7ker4I sdHBncGFy AAjzbVUeghCzyf40tQZ4aG87VA6sKJRzXsE5MXBp lhR0Qyr5MDGeNJOpoTMwS361p1tof5lirrYjtDG9 GCMyIGLnT8RxLW7yDMHrxMBeX21mbJDjVBX4NJVc KTIarJUtSQQkJBK1XUAnjOSlS4zfYYUyKO3vpehm JCqqFXlxHWNclYY5YRZnyXNcB1HuSLYhRHjkOPOu nqb9KxZqSe7bgOXcfMnhJGmqLRSaORPoFShuoWZq vcjcalFrZBNoUUWYQEtALZGOFHDxFtWEU8JHViMv cGFyfQ== SPECIMEN SOURCE (test code = 3377) i7vksHBsJBHpmWG0MsTrPUAcm7mie4Zy dHBncGFy YUegfTCfwsUnla19jXX9lJ94NH2dMAQfJoJ8TFTq kzX5Efe8XGLrBSAydPOwY076m7wpl3tlnvLhiJN1 kOuvYSSimghqIaO4RJdoKUSqtoodDRf8NEacSQNu fIX5EMSehIGqR7AlRMPwNQ3nbfr1CBJ2NPfeVLCb RwU6QKLirJPyFKCksCxeSAbqn613JLY9ZjSwKVBx rbFlhOtfoF2pQcBnWVZCOxISYC3gobPdTTeoWWHr MRWoD0h0RRhezN0loQVsxC== GROSS DESCRIPTION (test code = z9ujqQZlJDVtbGG8OvKbONDnu4xam1XnwEIg cGFy [id number]) TMleiNOrppZjsn95uRK5jJ65VP5sLTKeYmE5IHFd yaP4Jdy4WIZnVIDhdIBnK995r8ius4rfarYswSD4 RKBlATDuH1PqMD3vJTNxiEWcN49rjCEjVBT2ZUOc INGblENuPVEzEPD5BWOusHIyY9qcSGIqDO3ggwpu WYdwVMpzLNYooFD2HWRzkZRpT5NsMDCxSPhiGTKy hta8WfXgOf0bkHMkdGxxNEkpOJQjg9prMBGzfLOw QLH1VUdtoAMzNJKgOBRvWPa0MIQxGHdjgGMoGX7z lJneMyaxzMdgy9LrkIIeVZbzISErXWBuBZxpQWUb N5XIGYIfQju9FRfxRhHxBQn0HTefM7VRZTMqRNO1 AIF0DJFnYlR3RDa2UROYOo3uHRm9WtA9UlK9SYB3 NyG5JTghrGFxLLfkXazmEJrrXZJrzDPrUBmezuU3 CBWtJBevASMlZqHsGW9iWfNvp4EgzBCMTNWwRJWB aWdodCBIaXAuXHBhclxmczIwXGNmMSBSZWNlaXZl ZCBmcmVzaCBsYWJlbGVkIHdpdGggdGhlIHBhdGll soNtqqVuFK8sCQDhH0Lmd4Xul97phuVqJsWvOFQu TGQbpttnmXDbcEgaVOPeqL8pGNjzjWAkIOOopFSc YGC2TlRpxLV1EoKfdRKhDyHcI79nVwRhb0PeqVQl DKEoYKdwcChfYQAmYTyeEEDbXVxhuR9hgyyrN4gg WVV9rrhaY0PfQK6sqdahoc3cOSDxWIUmutXvC2Tj WKWmg9LoVaEwAYAtloJzcN2yyZiapM4hLiemWLw1 TCcdZF23uYFeEuIuSNhkPZD1sKAuwGUpKSJpCKkp BSEdan65RPsof8efEBYpLaS9r5DpoHUgZJ9sweYt SFsqWnNqlVQ5xFJoaXWqA8qmJMX7mmFqUHQ5iJR6 ZEZwTW0dQTDizj3jRRPBKYFyHNZpqqGqyIo5MHUz OBQ7bM6dywUnexKvs1JjfCs2yJLyUNzgLFTqHHLn RKZjyShjv5khZsHwNFFrxZYpKnloHMKre68mQUwv uZfgcJodIM3xtzmctvCzwhKWQN5ykNdoNJrlxE7n RUMyhQCtTAVpG1TmhDmqtmtiWVSdUOcCXLgWL7HK VQkeAGWnY8JnE2MdnoZ0s3uwqJuzy8OzbRYeMM4n cGFyfQ== MICROSCOPIC DESCRIPTION (test code = f2ryfOXtJBCbyKU4AmUuDIKhj9drf6 BsdHBncGFy 3371) RVjkoSJavbCwcf83rRM4fB59PG1zSJQhCxD9XKQx wgF5Fje6JPPwZYEugMEhK140u2tju3kyytNbaIR4 yNckEUIueyupFjC5DYpiWLOkxwrkOMq6MDcyOQRk bYI1DOVejIFvD8BkILSaMT9fgvt6DJC4EKslTSVz QgQ3WJFvuYImGQKpoWxgXRgnm723YYQ4LbVyTLJe dfWayYukuQ6uBsFlWZIGDSJjq8MaDGPgBQRdxr8= Gross assessment was performed at (test [facility] enter, code = 2777) Department of Pathology, [address] [place] [address]858, Technical component was performed at [facility] er, (test code = 2778) Department of Pathology, [address] [place] [address] 19844, Professional component was performed at [facility] enter, (test code = 2779) Department of Pathology, [address] [place] [address], [facility] [id number] 16:40:15 Test Item Value Reference Range Interpretation Comments Case Report (test code Surgical Pathology = 104) Report Case: [id number] Authorizing Provider: Heaven Garza MD Collected: 04/07/2022 03:36 PM Ordering Location: [facility] PERI[facility] Received: 04/07/2022 04:23 PM SERVICES Pathologist: Omari Lora MD Specimen: Femoral Head, Right Hip DIAGNOSIS (test code = b9bawVPdMBSet2szZGLfjGC 3220) uZzEwMzNcZnRuYmpcdWMxIH tccnRmMVxlcGljOTYwMlxhb yGbVCRquOQvB8KiskooMJlg FS0uIK9wnWuazTPsxUJuWFZ aZtFyu0wzd444xTFtv0euDP ISpehidPc0kTgpU21uw0S3O uniO08vpZAqEPB5BIOtMYAt cICzWAThIPH8FRLzrXJjN8l hZTUvYA2ccwqwSJjmFYlnIC OboTB1PJDwdFViO9DyXILtU UhxLHWjtlm9SdAqTn5ccTNr eTcyMFxwYXJkXHBsYWluXGZ wMiVqVn0CRFcdKyqJQBGiYf DDY4SWEUMWJODGZMJIPmTJN u0WWEADWQdukAVlGNYwFPCJ QhnCWatmSQ0FMXzGMD1TTrj SB3UqFFIDHVUTYNREIHKWKB TRJSVCCwCSBOHRSYBBYS9JM HUsF32XI2vHLFYHDNHDNVQF ZAkUE6VSIysgE9JjXpNTD0W VUkVccGFyICAgLSBOTyBNQU kZE56GTpULPUOHHP0aaSWqe TsyjwVmZVrix0XvUEflWLOe YA1raGpdFKDlSV6tACWfX6u ohB2aysb0ZcZhLJIkZaW7PT NcixX0Tdy2EMAgQKgkv3slh 6GzWXOwQEk6gYfvQeXtZFEt b8mvsiDsVvVxCMQgVGLgBWW pqZTfR385k6noe2sspeFnnG C9PGYhFCS4SLahnaKfbbQ6X SfdfPLjSvE5SImoduRfVZkb fdKfqwZwBpn6QVRnG469TLJ 2pVumd7umVVQ5NOXcCRUyWa EvOq2ebRVdC981EDJxPOIDG JFnuTx6KRXucrPyonZcdETZ m540H340o3ysOTJqtxOzkIk Gvumsn6vyL427GYIqgJBsyk UaHkKeQIPvrSIsqLA0DIDmX I6riuqvKBlgIBffKIGkctF3 SPUvbSLfL7NwDMAhAF3vuul eTKB5JHuaEJKdCGG4ZuRvUV Xka0Tivck3RnEwru3duc48H UB1c2TtnEgkARS6UOF7UnEo Yi5btMTjUABfPH2jKeLfnZV yWKZsaq33eDwlNIpfDAL2NV NievKcc1Wgm5fyOdSohsTiC 6wkX8HvYKSvIMHoQFPdLrMx juZem1Dqa5QvrMCqqJw4n7g pYEKfUJLcbRhwa9toWHO8TD AkrJKjD5bjoJ6vLEPiUW3rm gqbn3xuXHzuLAaxFRUifIP4 ngA8QSZolOZfD1TxnG0cFNP bWXpzZWSozrd9MtEyCi0cuU VyeTcyMFxzYmtwYWdlXHBnb mNvbnRccGduZGVjXHBsYWlu XHBsYWluXGYwXGZzMjRccWx cbGFuZzEwMzNcaGljaFxmMV naVaJbGZKdQKncB6geLpGrI rSgCux9OMRrbLSsCUVjExn4 XKIcwWDxRRIInDyyrP0uMLR rvGcrdH5dgQZ5RHJswoTkeP NMnC7dONPXbE4rIjM4XgSlG kD6UCn4LdQysURapZ7= CPT Code(s) (test code s3bkrWFrUPNqfDX3HeJeSNW = 3357) dm2rwe2BkoEBwjYWbQHlgwC GslwIrzq54rMB6eH42UN4dM VRuLgZ1AXNrwxX6Bct0VUMa MYKpvGAtG919i9rcj0xmitY irFP0pVuiSCBcsqkuMcH6TF rgRBWqsntsNYc9TFeoTGCcx EG7YGEhvSKpO3GaNGJxAU6m ngx4QZG6OQupEKUhIvJ5OUD nxEGdIPGsrZxiANyrg433VO G6LpUzOEWieuCtjEbyhB5hX cZmVSJ1GEWyDSshCOzdQXZl cGFyfQ== CLINICAL HISTORY (test i3aveHOjDGQnuVS3BuVuOAP code = 3356) wd4eae2WfbGIsvWItPHihjA NnakSehs36yGF5qX44ZA0lC CVcBkW5IANxobU2Dnx7DACr NSVxuBZsI068y7hbj5gxzkK eyJM8NNWlVDIvB4FjYM9fHD ZddGOnB78dxXAbJLV9BJTqB DIpbUGjEYRiHVD9WBRziRRq Y3hjYLNmXO6dyafaTEvkSLq jGVVrrHR9UXYiyHPrQ2LgSS LzQBugCYIiuqj4FyKeYj8xg GVyeTcyMFxwYXJkXHJpMVxw bGFpblxmczIwXGNmMSBSSUd GDRWJWPPdNcHPO3NFUhYtwA FyfQ== SPECIMEN SOURCE (test r1hirBVpCDRkkYP4HlJhAPD code = 3377) je9izx4XmcXYyqRJaNSikaK SemqKhff62kNV9lH61QD9xK KCnFrP4FEBrsvN5Bkg8NIYd SPIyiIRdE391r6jfj7parsB ctYP2sXsdBVLxwstnYjX3LV apLPNvsqvoVXx9DOjsRBEkq EP3OJEdoYOcT2LsJPLgGZ7m ufz0DVK6RHglDPQwHeT6WCC rjHLzQSFywPulYOxac946IT Q4HjWiGQWjirMqlDjtiO8kA jNpXEEEMbDKED8uebUqSHvq XTWmFWNsC9w2USarsA7vrOV yfQ== GROSS DESCRIPTION w7rwpRQxPCVpsQH3CtRwLPL (test code = an9sej1IjuNUqxRIdZUhmeT [id number]) QjanRzhi06nSC2aP62YX4vE UJfDkW6NOOesdT5Yfk6DJXw RROjoOOtD630m9fsi8ohlyR ljGM4UDKhOBNrF9CbWV4aRG ZyeKPuI64egNAaFAU9TNWyS OCowADoJWHkGOC9HUTbeNIc F7mnJPEoKM6olijzGSdhPNm iWFVbnAQ0RFDyyWDcG5MkRL CkFAhxVNDgwjg4JxVnIx1vd NJjtUqsFXsvMPMar4hgWZJa qPPnPNJ4RHjorKMpOJAuQBJ aYPl5WQTzMEgvvBFjMM6bxU xfXeoxqVonb8LyzHHfCDcrC BPrLADoWDwtVPScB6EGGJSj Gyo7CSnfWmMxXDf8XNzzO3E XTZKuOPA4CJS2HLNzWjX3QM i6HKLWAe4tFSh9JgW8EmE6I QG8WlA6IVspzKYdPMzeXnec DRzeAQHqwQSyIZmscyR8PQT wFPypVDOaPcGgCS9sJrKld6 JhbCBIZWFkLCBSaWdodCBIa XAuXHBhclxmczIwXGNmMSBS ZWNlaXZlZCBmcmVzaCBsYWJ lbGVkIHdpdGggdGhlIHBhdG gxyvJtqgAwVW1jALNmD9Vjo 3Mkp95lbtCfIqVtNHJsHZSh mrdbzESlwRjrFSDhcD3uXPs muSWtAGWgyGKpHOO9DtVfmH D5SyNvkANiWuTfP81sKzAfh 3JhbCBoZWFkIHdpdGggYSBq IUkpAKUwOFqgqG4hhvboP9u nTXZ3efdwB0JbQK0olzzvfb 1uJSHbUWPpvlKvW1DoNFDjo 0IsAxZlNVAjzvOtxG5pyDlf rN7nOapzLLk6EHrrLW13hGF vLmBcZJaeFHH8zULliLFgJW QmYTkvWCFhap50FJafe1vtF OXhPvS1m9OelZCmYB0fclKt XEjwCvYyqAV7wHYprPGlQ9r mQLA9ptBsWNO2bJM7WDTuWD 8fCYVkmx0wJAKIKYAiXUVjh cKubDl6GQVmMCI9kR1viwIu ztNti2ZziIm1wUEoKHmvPHB fBTXuELTbvWyje4euMzKnYV YkoJAmYjinZQGba03nIHrao UrbzPlyFX8ssewptsSxwhWQ HW0ohCkyDVhagN1zAMGzvEQ wHKHpL0IuxZfyqcykVEYkOD wPSCsZC9CPOXijQJNbW0NjQ 1JolvH6a7edtJrge4DffTUo CO5mnMKamV== MICROSCOPIC s5eafVOuQIMykUK6NkIdQXC DESCRIPTION (test code wa9nyt1OpoIPlrVEvAUieqT = 3371) LtmkMxzy23fNU5wM11DO7uS ZAvGvN6HFHerrA8Jpk2DVHi MOVcyEWdB303x0cll9rhpvX wrEP4wGvjHKFcvrznEkZ3HA uwJVJoesmjITs9QRvsQPPzp VY9GHAahSKkE9GtQEJpXJ0q cat3XBM2LWjmSAUpZeC5KUQ dhTFsIIBnpSycHDhse868TR P9VbRyEMIxhqOnkMifwN1kY wEzNTOWGWXrn2YvJTSuEKAg cn0= Gross assessment was [facility] performed at ([facility], code = 2777) Department of Pathology, [address] [place] [address]237, Technical component [facility] was performed at ([facility], code = 2778) Department of Pathology, [address] [place] [address]289, Professional component [facility] was performed at ([facility], code = 2779) Department of Pathology, [address] [place] [id number], [id number] 16:40:15 Test Item Value Reference Range Interpretation Comments Case Report (test code Surgical Pathology = 104) Report Case: [id number] Authorizing Provider: Heaven Garza MD Collected: 04/07/2022 03:36 PM Ordering Location: [facility] Received: 04/07/2022 04:23 PM SERVICES Pathologist: Omari Lora MD Specimen: Femoral Head, Right Hip DIAGNOSIS (test code = [id number] 3220) uZzEwMzNcZnRuYmpcdWMxIH tccnRmMVxlcGljOTYwMlxhb vZiOHTlxGPjA0GyebebXXsq HJ6bYY9ycZjxjVBsiRWaKNY mNgRat8wtt989yURoa2dmKZ UZbgfxpGx4mLbqL20gq7R6W yczT12jrJNkVTI4IYVcLJWg jHNvPAIlTZX1JCXdyKTdO9o bRZTfET1eqjvvFCscKCrtLU JstMJ8FTQiqHIeD8OhJXGpW LolGMPnqag5XrFzOn7okUKi eTcyMFxwYXJkXHBsYWluXGZ zWlEoUy1TWFooGeuBARWuXz ORW4DJPCZYNJNWISLGIuGFA t1CMSRULSqmwRSrDYUtUIHX TiaFHijfLR8WZNhXQG5UZam IF6UmXHFCFRRQLKWQZWMBIC CWQPJOVwJTVHWLZUZVDI9PD CAvS78ZA1vIOHWSXIMCBBPU GJzEH5KEMphtV3HcDeAHV9W VUkVccGFyICAgLSBOTyBNQU iES06TOrNRAXUTDC0ncLEjp OhfmtAxQPdar8PoZJeaDXEs SJ4dsOqhVZWvSG0eSGJxE2p fhS7caxg9ObGaCDUaBiF8NY XxtqU1Upl8QTGgLMzcl8lcj 6ElYGYzWAr8kOkbLdFyKTLo p9gxwbKbSfLeMMBaHOGyRCH nhCNoG231u9cgb2udavRqsA Q5QZXuBSM6ZQtlwvQmvuR6M MakwYGhBlJ1IVvobqQoVOlz wzOgnuRqFuo3ZUJuO403IDT 0uTrqa4gaXYX6AWXgWGEsUk ClLt9vpZBhR715UEDoXBOLV BMsvPr7CJMoidJpfvXseTSW f550C312t6osKFDtquBpaQl Xouoel3fzC069RXHodJUvcl UrPqIsWTMoyWQjiBO6KROqI I2jrkunALfrDHstSBNmlcP5 EMFpvEXpW0TmJUMrYM0rhte bGMJ5QWbtUQHqRVI6DnGoEH Hfp2Pgdja3AiSeya2sfg00D NW8r6YneJeeHEU3TDH7MlJc Rc4zaZRqMPWdNH4kItShzLI yDBQolb25mNooBPddRXR7EL UypwBqj5Jxb1cvBfJkmgPaE 6aaL2KtMFSvXUTxWANwCqTw tsXjb5Blp8DylUBzcRa2d5c jVMRgMPOwlAdwe1npTKH5GO TnaMYqB0donO4qIBPuSB8ce cjio4ddTUmwCKvsBQLduNR8 tzZ7QWIriDWkV1DgsI6qRXA uUYmtQFIlrus5OuRaTn9qcJ VyeTcyMFxzYmtwYWdlXHBnb mNvbnRccGduZGVjXHBsYWlu XHBsYWluXGYwXGZzMjRccWx cbGFuZzEwMzNcaGljaFxmMV cyZjGlNBAtNUnmP8kiZkGhF tNmMqh0ZYIskXIeQZZkFpi6 FJLfiBLjLMTHoLvpfT0fVPV hlRgffN0azOS0BTTmneWshC ARlY5dOAWZwH0nTwM4VvGmG kZ1PSl6BcEwcRCnlY9= CPT Code(s) (test code v5luzASnNHLyzYU1AaVoBJZ = 3357) vl4iqy2OeqNNjcEBcHLbbyX VwszNgen75oUS4xY33CG8oF ZZtKmO9ELGbbtZ7Ktd0ZKNs MFXtvUFaX337a6fke2vhkdB olLW3lSkbSWRadiehNgR0SS pwTWCicgvfQBc2AEgzBYImc XZ6YGQbzQDuE0TlSQUrCC7v vkb8QMA3XVxbDJBbLiA9PPV ucXPbWMUeeSrrKLqti716TD P4CySqQIVebyBasIingP9jH yKkGUD3WZGsGWxjDWrfCLXt cGFyfQ== CLINICAL HISTORY (test v9qlfIMsVPEfjNB4IdCcVGG code = 3356) ys0hlv0VnrMYymSXhYRdjlF KlisVqmw27hKG1fX35TL3zB SNbCfR7DIUlslD0Srx9CMKp RZMnnKObJ483w6ygg7lsbeS yjUX7CWVjRSXnX7GfYU1qFA WuiYXiQ74jhYMpQEO8SYPoL GOwiTIyKQFoVVY1WONdfWEe F0kbWHZsNJ2uvugsOOakTOa wRQJqmOU3PXJwhINgR3SjKA JoLFweBSLnpyw8PiQaEv4km GVyeTcyMFxwYXJkXHJpMVxw bGFpblxmczIwXGNmMSBSSUd AYKKLPNGyYyDPI3FYKeHbiU FyfQ== SPECIMEN SOURCE (test u5tsdDRjQIRjaAU4FoHiZKF code = 3377) it4wvv8QvyOSjeBTnQMylyP QwvxMtyh28cXG9dT90TM8xH NKjEpI1GAQegmB4Zmx8HVRc KLEymTAyK105y3rtj2csisD ikFK1aVriQUBdhwkgAiR6EX faQYIpyaleNKw9PJhiRNHgo UY4JHRblYPtC3BjLUMlOT6n unr2EUH3ZEbvTRNcFjP0EUE hqKBmOMMilLblAEaip427BW J6ZkZoRZXqmyMgkEepiT9oF kSnOFGLVsAWZV3gncZqNXqs KGKlSNIjU4d2CZwgbD2gyHA yfQ== GROSS DESCRIPTION y9mkmVGzYTVquVP5JoOoMHX (test code = oz5hqm5JgiREagLZeOWsqaQ [id number]) JurlDrwy85iMY5lX03BH4xZ UKnFiX3SNAosfW8Jde3ZCDd CWYpqWQjZ407i2sda4qzwjM biBM8XIRcNZOpP3VhSW8xXO VxaIBdB48ziNJjHZB1YRTgX LVxqZSwHLPjIFY8SIDiiJBy P5xrQBGdNR1dgxiwAAikCQp oINZjgCN7UPYxlTWgJ9IbRF ZwFLujJRBuwvt3UtBnZh6ze YTofCxvXLfmNFTqv0xiKHIs jSEkTEV1WTkpeLFuBSKsOQW dQRa2XQEoTYyseVYjUO7nyW ydDsqmtZnez3ZvrKLoJStxL CDuCYOfBZoeBZGnW7RFTXIp Ckb4YAefUxBeTLh2FKgjZ0O CIEHwINR6AKM7GNFzTlQ4DW c6JYDFMu5sGBk3NaK6VfJ2T AP1EyV1TWweqPYkIJhyLovp EMibQKSfwGPiTNcemiO2UVN lNDxfBDKgOlXtRV9zXkQsw9 JhbCBIZWFkLCBSaWdodCBIa XAuXHBhclxmczIwXGNmMSBS ZWNlaXZlZCBmcmVzaCBsYWJ lbGVkIHdpdGggdGhlIHBhdG ydxnYdudUbXX4xLENhA6Byd 6Nyp37qopXlEdQwMINjPPUo nssevXLtwPzqHVQchR2xEUo nzWNvEMPylPLdUYB5WxFqwA V9BbHefWKtOdOvD08tRsSpl 3JhbCBoZWFkIHdpdGggYSBq NHnbEOUpUSgqnK2rjrdjQ3v pCOX6rapwR0EmLU8rwjjjib 2vZLHgVJYetfTiB5YqLXSzj 6FlUnCnKPWxjnKchL7mmCcz kL0pXynnRPz0JCivWX47eCE kPcPrCQmcVFE4yBGzvHYeWQ TwNXlaVUClhc95NScof4odM YRvPoN9w9IouQQjIJ9bomSo TRwoKkCjgDP8yJXwhQEsX5i qIJB0nhUkDRR2uTG4GZClSO 8cWJWrwa0gIYJTAOWbCYBmr aSgwQa9VFKdEYO8zZ5nhhOo biZri4OfnBi8iVSfWVqcTCT wRMJoAZQpqAkko6umQfQyHA ErqRFmPhycZECyc38xGTyha IcvaYafCO1lxohquaVtvvTP AQ8naKalUNwyiD1tUEGxnPZ lLVEoL5RjcOzykmvjQKBcNU eBXUdRX5ZVYBtoKVKtU5JrJ 9BbzeX8r5reoGkpl6IscIBt NL2ouJRntD== MICROSCOPIC r6cqhRHxZNEzsUU4FwMiPBJ DESCRIPTION (test code ug5ygv3MfjNNqvADtDNfrcV = 3371) JlpaYqfn25jSB3lK81PF0eN TNyXwN5WLQverY9Abg8GNZy HYCrvJGlZ189y6opv8jwexC xcGT3bDqnFKOmmguuLmQ5NM nxUJZhijjfIUv9JAxoSDAeg NE5SILdbCEvG3FkHDAsXG8u dhi9JQG2VRxoZYWeFcB3PUO uxYImZEBxhJgfGScri408OF B0QmJfSKTebaRcoXfksU5dE uCaXSWRLYTeo8KiOIYfUEMc cn0= Gross assessment was [facility] performed at ([facility], code = 2777) Department of Pathology, [address] [place] [address], Technical component [facility] was performed at ([facility], code = 2778) Department of Pathology, [address] [place] [address], Professional component [facility] was performed at ([facility], code = 2779) Department of Pathology, [address] [place] [address], [facility] [id number] 16:40:15 Test Item Value Reference Range Interpretation Comments Case Report (test code Surgical Pathology = 104) Report Case: [id number] Authorizing Provider: Heaven Garza MD Collected: 04/07/2022 03:36 PM Ordering Location: [facility] Received: 04/07/2022 04:23 PM SERVICES Pathologist: Omari Lora MD Specimen: Femoral Head, Right Hip DIAGNOSIS (test code = [id number] 3220) uZzEwMzNcZnRuYmpcdWMxIH tccnRmMVxlcGljOTYwMlxhb sLoRUKszKObQ8GffagjBHal VQ7pJN2peYqupFTikSUnNZY zVwTyk1fqe088kIBwj9apCL QEigamlIv0zXqkT07qj2I2Q fjgT82mhWKfSCY8TTJgOZGv hEMoXQNtRFZ0KGAwlFUuX5t oEOEbPK4mzvwfWHtdHTryQU XcbVI6TDLctYCtU3IiIQRpE CnuEBRbaui5GeHyUx9nqJOn eTcyMFxwYXJkXHBsYWluXGZ fZnNwWe9FEGtzGkxGHLBoEq INR0GKYTUMRMUUKTRIFkPFH v4JEKBSETxlbVMvTHDxRHLD HtnFRrtwHJ7UUKeCWZ1QHob YL7VjVZNMATOMXKEIIBGLSM SZHZWBQdMULTUXOJXYUW7KS DZoH74DN2gQWMGCOXAYEHLU IIsRD5BCUrfvM8WlJyBLP2A VUkVccGFyICAgLSBOTyBNQU nCG78VToVRCGKXOD7xcHXdt HxrxzNaXYwoe4UtNPdlSQLj KS0pcQhzFCNdKY3vMHRfW3x xgC7tbbs0NcLaSVBgPxI7VS DahfK2Syg8YXSpZYury0wvq 6CnCDXcGFg9fJakCeDrWWLg i5hvvqHmOnMjJWHnBREvWRA lxKBoL119a2qed1zgyzPqbB H1HXGpXNC7GMlqfvXdakM3I YkokVOmHcD5XFcflwBpWLqj fsBhzcQbLky9HRHnW778CPB 1oErrs3gcOGN8HWWsCFFzIm PlQr8olLIyQ149EGYjUUZGQ BVijJu1AIOhfkUgzwRpwMTL h556L896q5bwWZUfxyNdvKb Xfzuig3dyQ804KLGzjYQyok BcCxQqXOXwbTSfdKR5JXWbT E0aurkcXAvqLLaxKNGqddU4 MGAgzNKnL3OkKGEwUS1mhtu zEGM6ALkpMHUbCXU6BqGiCK Ygw7Wmodk8StPmgv8jog62X VB9b2UjaMprLHW5IFQ5HoYn Km7pqIFzGVWgBY9aVwAxpGN vAUCclk56kRvmADzuBXU8IQ AbtkSog8Khu7zfZnUzarVvF 2wbI6MwBTDrOLPnYYLjXuKx uwApx1Yrv0AolYPosWl9s5u fGFXzHXBhfYzfx5prDKQ4TQ NnvLHtE1fsxV5mTTOaSB4cc ushg7vfZGkmOJfoCVZoxRN3 xpY3GAWntTJpQ3BdmY2bUMB tCMudWQAsoez8AqHkOh5udG VyeTcyMFxzYmtwYWdlXHBnb mNvbnRccGduZGVjXHBsYWlu XHBsYWluXGYwXGZzMjRccWx cbGFuZzEwMzNcaGljaFxmMV ruZtBvDGVnLKgmG4dfVhSfV yXzLll0MGMnjOSxZDIqBzt1 ZKFrtOZiSLZSaNntlW7mQTR hlRirgX0ntJC9FGWurxKmlR TAbV2oVZUHiW7aHwU3JuAcM uW5CYn4GbMicZLyaR8= CPT Code(s) (test code z8wzcLIoYBCndNA7VgCaIDD = 3357) so6ynj1MgrDFbxHSfTRbgbT BgooJjnd72pLG5oE49GB2eU ILfReC4SEUrtaF4Xvl6HOGp WBOioGPyP845c1vmt7ugbdW kzAT8oVncDDOkyfuhGpT0EN jsTJHedhucLEb1HFokMIXyf MT7NTEywCSoU7LpQYUtLP1l zuc1DYU0HAhjZYNvItE8OPR olGSjRQUjxOetCHbgn467WF Z4OlEyJJKxbiBsmAaxgN9nU cZbVZG6WULrBBluSVoyUVPz cGFyfQ== CLINICAL HISTORY (test j4qbzTHyOZSgiAG0RrKgWIC code = 3356) ua3hoj0NlhCLwnQOoZAufyC JpdgPtgf15mUC5qW88AI0fU NSaGuO9EXHgllE5Kld1ELMs DLAwsTNrK396t5oak1zymjN knZD2PMGcHLVbS2ZrJH2eVC BaiPTxI12egAMhERX1YFHnZ PArtGLhEJExWHI9EFOhpOCz X7riGTLmWO5osvinJTccYQj aJDLqbGS4BWOxlYCgM4MiAT TuOXlkKCCivus6JxVzEt4bg GVyeTcyMFxwYXJkXHJpMVxw bGFpblxmczIwXGNmMSBSSUd GJFWNDNMlHtZOW0HKXhOzqA FyfQ== SPECIMEN SOURCE (test y0xdcZXeNXOsgAN7YxOmQFT code = 3377) se2par6GumIZwpUIaVTnxdP XmiaNalc85pRS1rH56RW7oT HBjWnN0KJNlcxK0Nxw4QZPy DRNjgBFgY409e2txi3wrhhQ nqJI8yWewIZQtyoevDcF2WQ mtYSCsjvidTFk4WRywNFDcf ZV0IXZzeQUyA2VnJBTsPM0y yer8FOY4NHnoQAXgLmJ4WBO qvYKmVKJliSvxZWhsh777DT E9TbXbIRQzwkStnKwdeV7tG wXoLWJBEmNCYK6hgdCdJXii BAKgPZRfY6o1RKvtkQ6opSS yfQ== GROSS DESCRIPTION n6yrqUGfHYMkoLF4CtGgPQM (test code = iz7vgd6TptBNemJCiUTpwaZ [id number]) LuroKlyg10jSR4kS32WY8mA BDdDoS0NLZfayR8Nsh1JMGr SJQbfQHyI200s4sdk4kojiY utAQ0JRFrQGCbD2OrIL8wTF YwpIHzT02nlVXiLTQ9OJWaO ZSodAHfQUZuBKO8GKYedAVn D7tdKDWhMQ8ktgycEXdgTMk iGQBasEV9JVVhmVCfY5IfEA XnTXmkHIYffkk0VjYoDy7dz VIuhTgfZAjtYCUmi7adHBQs qTCgHCS5PGcmoIXoCEQoWLL jFNb8BFCfNZokmPVxBT1slZ cvLqzjuCiaq0ZraITrOUeyY JFeQOAkJCfpPDRvQ2ESZPVs Urr1DCguHyNgGVf1HVceV1Q FYBTwINT1CLX5COYmQgJ4WC i3SMGBDz7bFLw8VkF4PnZ6X WT0EmC8STyxgZEwSFlaPkbx GOjtQQOlsODsFMenzgS4WIR rIDerBUImTqNwUD9dGqWdf6 JhbCBIZWFkLCBSaWdodCBIa XAuXHBhclxmczIwXGNmMSBS ZWNlaXZlZCBmcmVzaCBsYWJ lbGVkIHdpdGggdGhlIHBhdG jzgcWxwzGbFU9bHCDaN0Olp 0Bbl03hfvNrNyEiJATbZBJj vyhubLCmtMowTQYnnH1bWOg qoNIeGCRxwUCzIQZ7OkZwsF U7BjJloRKtJvUgG55zJaHct 3JhbCBoZWFkIHdpdGggYSBq BGiuFJGqUTzhuF2wpwqbZ6i vGIZ2ggfhS8QnSA9umjdpxr 1iDHWfYVKuasVhP0UzGKShm 0CbObSvEJXvizVmhZ4itNgf rD7nCdklKLe4HQvmDP92cUV zZyUjJTzjTLR5pCDmdAZlXP PlIMhuGQEgax57VQcjm4drS WFnVtV5c8IbeQSkLI3rxvHw ROsrLnCqfWR8fHGdvBHtT3e yGPS0dzLrEPQ3hHL2EUYoJR 8bSSMddr7rVCYSUWXmNOTow qOzcJk3MJWzUOP3nN7bkuYv nsYhu3VrfMd3hURsJBqmBVC jMFJdKWKxkNnee1xgStEsNQ GmwNXaVtfpHSAlg97fRFucw BmhpSfySQ9lykmvenVdpcGU HD0ddVxfMOkqoS9zUVAxfJP eIQQiJ5QnyRuxyfdbKCVoRE aOSVrNH1IKSYdlLMKyY0RuP 9XwyfN2h2kkxCows7AedHWh AZ4osEMwrS== MICROSCOPIC r2utgIXaHYVtmFW7EnKfVYW DESCRIPTION (test code wm6gus2FwlZNrjZGsDWovhY = 3371) EdrtYkje13pOH4sD74CH6oM NKaHdG9GXGosxE5Mdj8UVSj MLUkuRNbI608e0oxz6uwidW tjWG1vRztWEKlcysaZmF4FH xlFAQqvpyaVKo1KWmmHSOoo RQ6QLNzbQWrJ0FdRQQpNA0f jta6QXP3VVmeJCOwAkG4AYN jgBLjBXCfiZufNAzph626DD J9SrKfMHEamyRxlQxjcA6vF zJrJFBOPHXwt1InMRZlIODg cn0= Gross assessment was [facility] performed at ([facility], code = 2777) Department of Pathology, [address] [place] [address], Technical component [facility] was performed at ([facility], code = 2778) Department of Pathology, [address] [place] [address], Professional component [facility] was performed at ([facility], code = 2779) Department of Pathology, [address] [place] [address], [id number] 16:40:15 Test Item Value Reference Range Interpretation Comments Case Report (test code Surgical Pathology = 104) Report Case: [id number] Authorizing Provider: Heaven Garza MD Collected: 04/07/2022 03:36 PM Ordering Location: [facility] Received: 04/07/2022 04:23 PM SERVICES Pathologist: Omari Lora MD Specimen: Femoral Head, Right Hip DIAGNOSIS (test code = [id number] 3220) uZzEwMzNcZnRuYmpcdWMxIH tccnRmMVxlcGljOTYwMlxhb dVxFDNadHWhL8VrxyxmEKtf FB7uQW7rjIugtWPqoVRyBVX kVzFwb9skg533nUTml4wxEV UYjvmanGm0yZafK03dm0B1J qgvC34ysTAwFWI5GJApMVCm cZIjCSPcNEH6VZHbuZNtJ5m gEJYbJP7kgkeoSLdbWZrkCX VcuLP2WIXydTMhX6JnLOMjZ OooZFNhmpw2QuFdIv8kzQAy eTcyMFxwYXJkXHBsYWluXGZ nVvGdDj8OKAanQgsFOIPqFv GDL9DABNQLJASWPJEHNrDUX e1MUWRXNPrevBBhTILtFWJD UzkKVcbdKW5CEAnPGP6WYig RL4CdVOCLWQQULFLBFDASSI MVZKVZYaXTAXJFMQTSQU6HL CVwO35VA4cQVQQACXLEAFAW KOmQW7YRQrflE8DrZjOUW8P VUkVccGFyICAgLSBOTyBNQU kZF58BKoKKPRWBRC9lsGAju ShbjsAxITrgo3QhEXmlXVDk AH2miDueKXEiFX3iNSOqY1w lbY4ddkf7MxZdQFSsDzI7UF XwvmY6Teb6JBUaEHjck5kjm 1HmMHXqMQz7wLrnSbHgZSFd a7hwpsVgHdAuUTXbDUIbRXH klOCzW044c1fft2kfpeFsgA H8ZFJtCBY0KAyictGlrgZ2V KdgyWNqRnP4PZulxqWfZUjh bfUjmhDePkl1BLSfF847YWE 8iXdqn6lcFAK9HKOiWIYlUz TiHc3wnSPzF013DPOyOBATF YRkbVl7RVPgjbLfaqTqvMXW d061O397n2lnJTMfqiZfxZg Rddwiw1thT995EHZaiNNpzl LiIjFoEEOuoDLjqLX2XHFqO E6rsmspWXtkCCtxDBGfyjQ2 SCSvxHOkV6ApULBtXK5lqcy mYLM9MFpbZLKuCVN9XwVcLY Bmx8Rwanq8AzSsrq9gsc94J UN5b1JutEieFHS0WOA6WcHs Yq5fuXByGQDuSE6zSvQlwSI cHCFgzs54cGgeKClmSQA1LS KgkrEoj9Xue0dcWcBixhBmT 3irK1NtFQPuIZMiBZQaRiGn phCfn9Vsv7YsbORqiMe5v6a fKBNlUTKmbUsdx3gsERP9VX OmvFOrW5vneY7wFRNcMU0fq mpyg1voGLaoOTbmJJKpiSK8 liS7MQZkoKZpB7IgbP2tYCR pFAosZGZzmub4OwUfNe7iyL VyeTcyMFxzYmtwYWdlXHBnb mNvbnRccGduZGVjXHBsYWlu XHBsYWluXGYwXGZzMjRccWx cbGFuZzEwMzNcaGljaFxmMV hyZyNbWGJjGPzjH9ckTdCfP jFzFlj0YITbuZAvBLIdUjf0 SMNbyDRvFOQTyEytmK6rNXG ssCposS3fhVB5QJLnisJprZ FWpK7qNUCTcR1sDhX4VxBbU zM3VCz7EbAkfBVcyH2= CPT Code(s) (test code w6vvkBPwIGSefGR2EiObAWB = 3357) zl9spl4YmkKZahYGgNMejiL OjeuPjkx02dXB1iX51GM0iE PJsDlE1ITApdwL9Dgo5JQOk WZMhcRArL275s7hnl6fdfgM qvAA3kShkLJSzmwstKxB6DP cqXTTbqkdfPZx3INcaLJVev IT6TNIlrTFyK3ZiEJVaQI8y iii1EWG3QMmwNBIdIdJ8BPJ xqQQdBXJbaPjwRFnzr836SC H8PtCwBWHlfmGgjRnvvQ8tH mYrSTP5SCBdAVkwTFbbSURd cGFyfQ== CLINICAL HISTORY (test n7cxiHUaQCCelRH2ZzByGLT code = 3356) xc9gjq5OziDIxcIMkTJppgD FbuySidn29wBL7iQ15LY2lX STyOqE9LYFbbiP7Ofn4OASo FIByzQXcL121e4ztu7lxkhS fiXM0IBYsUBGoS9YeMP4gDY YhkIJdR85oqJBjZWU2IONfZ GGwcGLfMSXoUPK3DRDoyUSg H8wxBNXtFX0izphtCYbrEVl mSAOvoLZ1XOKtfDJtC5YjLP GxHRtzRTQbqqi7NrHsJb2ev GVyeTcyMFxwYXJkXHJpMVxw bGFpblxmczIwXGNmMSBSSUd AWYJDVMMjCmIYL1QAVxGoiM FyfQ== SPECIMEN SOURCE (test w8aplSCnSHExfVR0CrGjZBA code = 3377) de0xfn6BucUPdkYRpWZrewJ EopxNdwy43dEI8cZ04VD5oN AZlHiJ9KQIziwT4Jzt6BKSq EPRygRDdU770j8oyp1ostnA pjWO1aIyhGJEcoekpTaV1XC pkSIFfimzxHKo6ODrdIQXnb BM3DGSyhDMrV8CrGMSmVR1j nok3QIR0BTwzWMXdLkK6ZJT kmRVkRBAelEbzGGlof954VL Q9XnHoZTKiibNefTafkL9lI hBqMODSGtOHFM9smjFaJAqg DELdWLPiP5n4XSxhkJ7vmGJ yfQ== GROSS DESCRIPTION l0srwAMuGTTskDE9BwWqPBG (test code = gs9mzq0UljZRmoTMyTAptcO [id number]) DopdBbzn53iBC6hU60EG2iD IIqIvR7LQEwuhK3Yqq5HHKa NEFtuQDxO649c6vvh9vvwjU yiXX0AEOxMKRvQ0QdQJ1zQO AztPGbZ73apFFxMPB1VJZmJ KDpiHClDGKiUOS3NZIteUWm A2otONLxER5adtsgPOyuYHl tSJFyhAB9PVLywAGpH4NwCK XpEWkmSZRgxgh9JzWeNo7iv WCuhGvfLBdtQEJbx5vnGSMu jUVjLSV4KBwliIJsDWCtGNA sYTk8FQYqWDxfzONtYP7ixV jfCmhlvQgvh7OvwZObCHicR WGuLZCjAMsnHDEeR1WCBZAu Kdz1WIkdJoXgYHb1DMgcI8V QYOIvAGS8OIT2UJCdWfU4TU q6OYNFJr0uDRr4KrC7KzW0Q KZ4CvR3VXecmGRfJEdfKjzx RRuhFYOhrZKnXAxjdgG8TCQ dHMthVXMkWiKzOW2bEzFxg0 JhbCBIZWFkLCBSaWdodCBIa XAuXHBhclxmczIwXGNmMSBS ZWNlaXZlZCBmcmVzaCBsYWJ lbGVkIHdpdGggdGhlIHBhdG mkasLqatOfGY8qQSZfV1Atc 9Qvc39oduIlNcMaBUYjFSAl vvvwxADjgKzpSNYmhK1uLAm swUKsRVJmzPRuQOZ7BsHcaS U3ZwJevAFcKiNbW59lPiQfx 3JhbCBoZWFkIHdpdGggYSBq CRuaOHNiYKiycY4mwlzgC9c yYEN2vfdoU3MkNF2mdlsxes 4lQDFpUISqshDnQ1EuHFLuz 6VxDgDpDROeeyNyrT2pwJwk lD2wRvcdPKg0OZgfSD88qGZ vEoTvQPogQXK0mGZlhNEwPR NcPRfzZIBiam76YNbus5csX RRxKzA7w7NbwETyAM9bjpUm HObcVjPzqNC1iUTmgWYyT3b tATA8avWfSGR3gRW0HPGlUX 3bRQApvw5oNTRSDGReBARtk mOxmLt3WGOxVDZ0iT2bofXj wxIxe5PfsCy9yDHrRVceJPP tDHTyHIWneDgeq9hjVqVqCD EfkUVqEqsqKZLas64vDCrdn PtnwDmjMA9chvqzlyDfygPC BV0zvUvbBLfcmA9tRYLhiNS fUJTcI9YbaPlelbxcZCGeQP fOGNlVN1NYHVqoMPSxL2HrR 4MvojN9h1ucyTioh6GrjWYl OV6zvXLdlO== MICROSCOPIC a8ujgFZyRNIxxRY4EpWdZEZ DESCRIPTION (test code cr4amk9RzpBLtlSJlUVbwxK = 3371) CvktEfvd40yYK4mU19VQ2jS LHlVjA1QTOojnD8Sep5WUIo VDOoxRImN882p3xcb6twxzM niZJ5hZkiYHYfmeljByX8LZ igXAUatznaPVn3DCnnNQNmc NO8FNDttHBkX2PrSXMePZ9o bge6NJU8RDxjVGCkBzK6IJO rhUHbFRJllSygMWfql136PV O5NuSlYFHesdHxvBlrqI4iW nDpMIFZWUJwj7PhYVDhTNLn cn0= Gross assessment was [facility] performed at ([facility], code = 2777) Department of Pathology, [address] [place] [address], Technical component [facility] was performed at ([facility], code = 2778) Department of Pathology, [address] [place] [address], Professional component [facility] was performed at ([facility], code = 2779) Department of Pathology, [address] [place] [address], [facility] [id number] 16:40:15 Test Item Value Reference Range Interpretation Comments Case Report (test code Surgical Pathology = 104) Report Case: [id number] Authorizing Provider: Heaven Garza MD Collected: 04/07/2022 03:36 PM Ordering Location: [facility] Received: 04/07/2022 04:23 PM SERVICES Pathologist: Omari Lora MD Specimen: Femoral Head, Right Hip DIAGNOSIS (test code = w2qcdJBdDNYge1nvLKIauYM 3220) uZzEwMzNcZnRuYmpcdWMxIH tccnRmMVxlcGljOTYwMlxhb mCcMBHocRPfY7PkvkhqLTdj AU1qPB3dqSzguGGauIVsHJC bCwYfu8zts863jSIwk8vgAW DJipnnzPw8gJfyT38wa7W6H fzlP78qoBUtZFH1CZUlLVMr uFAkMCAoSYL6ZPHasJLpC8l zVVDxCL1xspnmNYjkIVdmSC PurEK8SJCinCJpI8KzJXSfS QufGEIfqnj5TwOpGi1gjHXk eTcyMFxwYXJkXHBsYWluXGZ pMsQbZs6FBTsbHssDQIPgGo YHK5SNWZJIBWBQZGBPUfWYM v8UKPFYIAqdcONfZXPqKUWX KykZPrvrCK5KFAbIIF9XJud XE8PaMNFZBWGMWFKOLEPGCH AQSVPJMgMMXCYAWNUSLM4GE TVkL51AF8nXPMGHNDHDYUHM FFnRY8XYOvvmX6UvXfOPC4E VUkVccGFyICAgLSBOTyBNQU kCZ93RMiYHTSTBNF5fwJBht LkaamSvZPsvy1GrKBvrLYEs HU3mrFqxDTQiRH8kJUVvR4a qeV5ciyb8CiShWSZvSqF2HD HdhrO9Qnu7RHXkLZqhe4gzp 0EcOFSxNOv2eLwzXjAzSCDk g0mcdhHsNgQmYTFtWBRsXAY irIBoQ926u3yxb7owsgGviY V6XFUcJXV2ZWbsaqSewwG3L WivcVNnNlK9NBxwqlByDXwx ryGckvFqSsw7VHMuR642WAF 6gXbeo0myCRM0NQVcKAJeOn PeSw1zuJCwU169UOBiCNAJA YGetMs3LJEbfeBdlnOeqXAG v689D763x7cxGJTydcBwcNs Porjyg4cgE138XISkgEOpck WlPsDjBTRxrUJqwYK9MWMwV E0srsauVXqfJSlkSBLqhaQ4 GAFltTBoQ9QdJXGdWZ0ftwd gHCV9KTxbPYNzYTG8UhUzXS Mzd7Htutl9ZsHmuo9rrr50N QO4m7KdeOkbVGJ2UAJ7UzFv Ev5koQBjKGTfED5dNzWofTV bQVKqxb86qVcuPMxgYXO2YH WbnjSty5Giu1cpNdAucmOeH 4icE0JmCNXxOZLsVXPnPuVb guBsh0Fux0HuxNDipLw5p5n lJHZwVYYcgQtjs6jtOLK3XB RecPWgJ6zbdS4bWPDlXP6rz caty2zcJSlpIAlaVWCqoRN7 rdA5CVAiwJXnS9GkhE7fZTL pSHphSKQfgbw8UrGyVe6akS VyeTcyMFxzYmtwYWdlXHBnb mNvbnRccGduZGVjXHBsYWlu XHBsYWluXGYwXGZzMjRccWx cbGFuZzEwMzNcaGljaFxmMV jeLrXeBPUmQEoiF5syBrJaK hKnSbq1SBKrcSYaWPQjKwz1 KVOyeQQlOHDUtFqjnW3sJAQ ijYwdhL0spBZ3ZGIlqiUrjL QUtN6aDPQMkD7gEzK1EzNdE yL3UWl6WyVipKSlbX7= CPT Code(s) (test code s3fuyPEfITDftUP0ZaVqUZY = 3357) tk4mfs5TlyVChzXBlHFgcgV BihrHrzn28pJK5hS63GC0pU BKxKoC4KVBlogJ0Aqp8PJFu NTJbaHCdN648k9qkb6zqloJ fhUT6bNamDCYztbklWiF7QT xwBOIviqhvTLj9HKcgLPCqm BG3UHXagXRrV7GvYCNxJI7b fvt6PRL5SIziQUUyWmK7SWS dtLDtBGDprPgjKRens321YY C7QsIjNLAoccIkpGcaoX4pL nKbQZU7VBZqNFrlPYugYQOs cGFyfQ== CLINICAL HISTORY (test z9mymTXiDMBggXX4ZxEfPVL code = 3356) ql3oux2WptYVjbIFgWNsolB KnhsXzhz34zWP0aB71JV4jV VVpXtU3RZCsfrD1Jch0NVVg QMMlzHMlX977s2awg3dvjoM ezML6DDCbEKTlW8JuPK1qKJ PvpHNrN83stIUfNDJ2GTFbF NXwsDQwAAKnRTT1WCMacRHx T0moHCCfXP9hflxwUSsrSDj uLLOhkOQ5RQOkkJItN5NlCO FaCMrnVAUzbfi1OkNmSa0ze GVyeTcyMFxwYXJkXHJpMVxw bGFpblxmczIwXGNmMSBSSUd QWOUJLPCaLeLGP2MEUbObrL FyfQ== SPECIMEN SOURCE (test u8qzuBCmOQCxjTY9JfKnBVM code = 3377) bq7ihk9PezFEtuCWgBQzjwW OvohZpol34xTA4pE74YB8lU ZUhWdE0JMWpndI9Our5NDTa XTEkeDXnN092d8qgh0qexwQ cjTM0eLmbFPAoswvsItX7QI lmHULuxdweDJu9KAuvXMZhu WA1QIUngYNkD5NvPXYiEG7b rjm1API8JZtgPWYoYbO7CFX ebFXjVTAojLjvOQnul682TJ S2CiZuMILepqBtpCunxM8eF vXdDKPOVdHWSW0zosJqGEby UMClRVPuB8g8BGhocZ2jgRW yfQ== GROSS DESCRIPTION a8xwdLFsZCNipOS2VaOvEZH (test code = ti7qmf0UeaAZwdFDoWIiycA [id number]) VyskZhdm93nPO6fV13QI3fQ DAcUeI6ELRmmmF1Gii1ZNNa SEEqdIMbO486w3sqb7bfxvE qiHI4GYQrBHAzY4DiYR7dAM AaeKKkY29emBWdXLW6MAQeJ FZscLUtLKGtPPV6SZAiuTLj M8oaGNUgBP4wjahaEEjvMXt bGAKpdFW8TVHoeCMmO8DcAK QxOKzpCGFevhy8HfOfGt2pi KYhqTfjWShzNUSeo6hvLKOz xYIwQDE4XDeeyWHdFDAxAQV rWNx7DDUyAKqcgWLiPY9waV gnVsnrsRxuf4WfoSNcDSbbW QPtSSWnVBflMWYvC4EBZROv Ilt4OUvnTvQlLHm5LBhfE8S HDPSiEDD6HZX9PDSjItR1OF h0AGFHXc6pWXk9VeR6VhM6H MX6CiN9PKahqQNhTOpnDfve VGuqQCAqrKWtTHeuedI9WJV aPXolHOQgUiHbMG4xRkFbh2 JhbCBIZWFkLCBSaWdodCBIa XAuXHBhclxmczIwXGNmMSBS ZWNlaXZlZCBmcmVzaCBsYWJ lbGVkIHdpdGggdGhlIHBhdG okxqIzpePzRO3vDCUuF3Skh 3Wsr50rtdDgJqZlKAAiXQJu aeahqGHfpHamJJZbvK4nQEd tjUPgYIItxUQhEKV4VfLndY Y2FyYvdIAeOcDfY85dEfByc 3JhbCBoZWFkIHdpdGggYSBq VYyvVBZzKCiyoZ6qilohE0l zICW4vwqkR7XySS3tmkmcqv 6zNLLcVOVpiiDwG3OgUGAsz 4UoQzNuEHQwrmJcuU7ydMul yU6lJfrlNDp7TRbrDJ15sRM fBbAoRCdcQWF3qEBfrPVzWZ LxBIylHPPvly01OWjyx7hqY WCmQjI7n3FodPRuDE8wbkUv TGnzPtYdiZM5xQKwaHUaA4b hJUK3bgFeKOT7fQI4YARtPC 7fJAHsfg2cITQUIDGhJGFqn mHviFl4GCJeAPH3dP6lsbAp yxVea1VuvRm5cCNqDHsiKQR yVBHyZAUnkPcus3gtByAaEB ZxqBKzSapdPGQzx92xUGces ApvuKjxIT8glcilntSdpmFZ QX1ceFcwCVfrdB7yGZYpeFX kJTFsM4VpmSczjjsdYRSbOU wNXPwZH1CQYNydCDNmB9UrQ 4PcapI2v1sjfDuil6HrrFXl UO9jdEQlkI== MICROSCOPIC m1xnpWZvHHXieXR0DlMrEUI DESCRIPTION (test code py7vgy2QgjIHdkZOvXPlouA = 3371) QgkrQbcm14qDU3gZ00VQ3pY PCuEvL2JLKuffV7Qsn7YBLq NHRcuUVbC307i8kjx5sdykY iuAL6sJkfJOOejyylKnW2RR lpDDIzljomVTu1CYziWCBlu DV2EHWmsNOfA7IaVYNeRX4c xxt6KKI5GPcvBLSyAaK3EHX tgDHeSAWstHksMNkfi616BQ M0InMcQMWgpaSnvTuieK2aZ sAaZIFGPLIjk0PbBTBbRDEl cn0= Gross assessment was [facility] performed at ([facility], code = 2777) Department of Pathology, [address] [place] [address], Technical component [facility] was performed at ([facility], code = 2778) Department of Pathology, [address] [place], [place] [id number], Professional component [facility] was performed at ([facility], code = 2779) Department of Pathology, [address] [place] [address], [id number] 16:40:15 Test Item Value Reference Range Interpretation Comments Case Report (test code Surgical Pathology = 104) Report Case: [id number] Authorizing Provider: Heaven Garza MD Collected: 04/07/2022 03:36 PM Ordering Location: [facility] Received: 04/07/2022 04:23 PM SERVICES Pathologist: Omari Lora MD Specimen: Femoral Head, Right Hip DIAGNOSIS (test code = p9pbeALlYBGih9dgWMZsaDT 3220) uZzEwMzNcZnRuYmpcdWMxIH tccnRmMVxlcGljOTYwMlxhb pHcRRLabTTeC5UoebfjSEki QF9vJD7yoAjbjMBhoLVnGRW vSfGul0hch091fFTzd1jzKO WXmbmhzWp3bZubU16hg3K1D hqcK33erJPdVJL6VVXaCNJv qBErMSIhCJZ2YICevQFmK9m tYDDnCI9affzpPVgwGVizRE UukIP6CLFqhFJeY8VvPRPbR MvbZXFmnxj3WtEuEf0paYOc eTcyMFxwYXJkXHBsYWluXGZ aUyEvCm9IBTyyIvbXDSOeGg YCI6LHEDZQWMHPFOPCArVUQ r5VVAAAORgngICcJEUbSCMV VlsYLfiwQW3LWCyCSP3DHmt SW3RhCEVOHBKPTNVITMGISH BXTELXOdADHJKNFVJDHQ8FO FTuP04HB8lRQPPMHRSQBGVK SUxDG4DTSqfbF8VhSoJZE6D VUkVccGFyICAgLSBOTyBNQU bPB23YTzRJYMHTDO1ngOSlo KcbpbAyZWjmk4FaPCirLVRb NH5drMqlGFSbHR2iQZWjF8f ahP8fvpj3SeDzEQWqNpY0XJ UungA4Pye0KOGuAZxdr2pxk 2EhATBlVGy8cQnfNqJxSKZb v2bqxtYkSiQzGPFgOAHkEFO qfCTfI764y8gsd4xcauTsuW M8JFNqLCW9GSxlezYywiB5W EotuRIoYsZ1RPlkyyHcYGrg nuLcrhKnKwp1IGYcS796VTF 8hYrfi9rgFIA1LJZlECGmCm PeYt5zxCDdH931VJUjBRBGC LTwrYb7VRFzvvSabzJknPEX g996W260n8djHAOfcxHigIf Opfgxn7qgS066TVOlvIWvcb WyUeYeIIJosTFtxFY7MZUdM L3hswouVYknCQoeDTCozpJ4 BFQjxJDrW2KeEYYpVP0qyuw nKCM3MXboAMRiFDC0OcCmVB Opy4Dblwt6VwNbix0txl49T CF0u1UneKnfWUQ1QUM5FgLf Oz4onHQlAEIfQR6rTnDulCT sCGFbsk69cClwYEmkINM1MN OikzElq4Hil6ebTuTwwmYgL 4vhB2WzAIThJVHkBBJrCxMp dlEbr8Aww5GdwAYjbNb8u4r wRPUzWYZvxWkvu5oyTWG9HJ CjbTFfN2epbN6yAKDwIR3dl keya5jnRKhhLMsnXIVvlSX5 bfN2PIAlwOPoW9QspH2gKFW vINlsHSSmbdg3NiZpXc0mbC VyeTcyMFxzYmtwYWdlXHBnb mNvbnRccGduZGVjXHBsYWlu XHBsYWluXGYwXGZzMjRccWx cbGFuZzEwMzNcaGljaFxmMV muBiNyRIYoUAmpT2gpVuTcU nGyVrh7EXBqmKZkJFMxFel6 FJUwbJDpNYDIaUhhpE6eVKC poIhwlL7gzVJ3RAHuzoRksJ STbE9cVXUItZ6xJxZ5DgFnN gA7YHi5IeLrdOEdpG5= CPT Code(s) (test code y6unsJXzKEUblGR9OzBlRNY = 3357) kx4cyq8VvwFQggNTfMXxjqS KeaaQwcu71yVA6gG75YR2gW YPwLxX0MCScciA1Ojt9WWFz ARUiyZKkZ472s4dbx0lbccF xkNN7dDkwUJTxvidiIjL2JN abUIPjnsceOQo3PFkdIVWbr JI9TNJvdHFuC1RbKXYhZZ4m zas7BYP6QSiiRBWdCtR2SMZ xkAHlSUOetBdnHHewr496KU S1SwZkJCRzzxMglPludK5vZ yDuVSN6QLDbCUowGUraZYXd cGFyfQ== CLINICAL HISTORY (test a5aodJLcTMEzrNS8LoLzOMZ code = 3356) kb7xqg4LqaKZegLTxTNmzvX BcpwZhxr37hGT4mK83DE0oG ULuNbY0ZUBjmcE7Lxa9UXUh MALqnRRaZ071k7qzn7jummI iiYZ3RHUoIREmB8QyBM6gOY DizEKjX51xeRPmVTV0XHRrG GHsaCEaGFRaFAY4GVKmaMCo J9rbCAHlQW6mzztaUZkxAKu rIYFwfNT6BJYseEErT6JgEG MvRRugAENvsml7TdMoCn2hr GVyeTcyMFxwYXJkXHJpMVxw bGFpblxmczIwXGNmMSBSSUd HWBRHNOFrGtITD7JFYuCycQ FyfQ== SPECIMEN SOURCE (test o7yhvLVcJMFxgAR2HqGuNIS code = 3377) ie4jmc3XpwZGlcUQvOFgglZ WdthVnoc31dVN4vK52VP2yC JUhBqH4LVYcfxA4Wka1ERCt LORkmMGkZ530o6lhc0pemzV sxWT0wKrrYYQamhhhVpO0LE otKKZkhpxwOTs3VMytTLKrp OQ1NWRcuBHhX4WeCBMrXX7s wul0WDE7ZEhyRJBhUwR8SIW cyVAoVXRaoBdpUEtqa845KT Y2XdXoMSVeozAvgFwkjA7sR pHvXOLFQzAWDB9qhvPoVFid ZYWnXOMfD7v5AHuznZ9zyLE yfQ== GROSS DESCRIPTION b6jcfFSlAUSkkEA2DrHrDPM (test code = uo7ybs9LcnQQyjNKxXKfzlU [id number]) NjdlNmkq40yKI0nS84VU1oY LBfNxK9NCBdexV5Ibh5LKSr BAZjqJYaV950b5sfo5vlffW fdVL4MMNuQEVbV9LjED6fMO IdeOEmI43ntLTjUGJ0MMGaI MPqrEXiZDDjHGL1BITdiTHg J2jcOPDjLH5aqsbrDXfxKUg oPYEyhMF6XRTdgONoQ8NhJG QdBVkkNOOciww8TeUpZh2hr UTixVviMUojSVZft2iiUSVy rBCfHSV5DRuxeAQiBXVbTER wNYr0ADQiSFtweVQtKC4hxM kaLuiyrDdzs8ZhtRYyNUdaS VFlWAVaATnyYMXqK5YUEMDa Htk7GCajWzHhWMu4FDytQ1T RMQRjDHP0SKD1NCWpAaY4LE q1PQSTGh7aZLy3CzA0BzZ4W RD7KaI4PGlqhYPeKYmlIbvw OAfdMPQnvBYaFUxoutM9LYF rRZprWJWmIqGcIS6yQxGyc3 JhbCBIZWFkLCBSaWdodCBIa XAuXHBhclxmczIwXGNmMSBS ZWNlaXZlZCBmcmVzaCBsYWJ lbGVkIHdpdGggdGhlIHBhdG omfsEbkmFlIZ2wLMHsB3Eqn 9Pxc48dsnYfWdEeUTEiMXFp tbpiuGVcdJxrSQEbhY1cYGp mxQScHGPswMPlWKG0UkKysW P4XjNhhGByVoQmC23wCfGfu 3JhbCBoZWFkIHdpdGggYSBq COryRQNtITthcF5obbvqZ5j sEQP8yxvbJ4FaGY2qbhjdvc 5yDSKqHGPotsPhV8PoYFFjc 4FlPhJmQLEljfCfnF0fbHxj sE0nJiluNKj3TQjeKG71qOF eXwNoGNyyMTG1aTBfgPUgHU TnCEplVSUtnx45EPkyn4riF QOjGdR7e7AczQBoMA0ewzTn HWvuDySbjBM9kHBjxIPkT2e fSUG4emPiSUR0iPG0ULJrWA 7uZLKqgb3hKIPEFPSwCFOue mWqbFp5DUBnPJP9yJ9jfbCh rnWjq3MvvSs8jWRxKUviEHC rOUGzRLWapGcbu5tgSkMoAU PsnPLpVhrjVWUps91iHCpoc RishUodKP6svudxrjGenwHU MP0djDjdYYrtqC0sBLFgdEY cGMRuE0EfmWcszlceNNUjXU qLGSuXG1ASAMbvWYYhG3CfU 7LfaqF8y2jusPvhk6AjiUXi EM1orEUccV== MICROSCOPIC j7eiePMmHBIrkYJ5OsYqPAZ DESCRIPTION (test code mo3szz0MfxHKqlWWlAYjgvJ = 3371) NrlhVdyt87cAM3pV80XN8cW GBqLaX6YDHbkvW4Jrz5BAMp REDneCMwB314q6xvf1hxtfP bdYS4mBprPANjlnrsWaS7XX glQFBzuyaxNVi2INwlPKQni JG8EJYvjPLcQ3FcGTAzHO7i wnk5KVQ4ZIdjKVSzVuF8OSE odMDeCHBedUkcQEzta689CN N2TeGkYYYmteEdrFeaoP7kO hXrQPSDBNGta0HyKEDnMFUe cn0= Gross assessment was [facility] performed at ([facility], code = 2777) Department of Pathology, [address] [place] [address], Technical component [facility] was performed at ([facility], code = 2778) Department of Pathology, [address] [place] [address], Professional component [facility] was performed at ([facility], code = 2779) Department of Pathology, [address] [place] [address], [facility] HospitalTISS[facility] [id number] 16:40:15Surgical Pathology Report Case: [id number] Authorizing Provider: Heaven Garza MD Collected: 04/07/2022 03:36 PM Ordering Location: [facility] Received: 04/07/2022 04:23 PM SERVICES Pathologist: Omari Lora MD Specimen: Femoral Head, Right Hip BONE, RIGHT FEMORAL HEAD, ARTHROPLASTY- ORGANIZING HEMORRHAGE, REACTIVE AND REPARATIVE CHANGES CONSISTENT WITH HISTORY OF FRACTURE - NO MALIGNANCY SEEN Signing Pathologist Direct Phone Line: [phone] signed by Omari Lora MD on 04/14/2022 at 4:40 [id number], [id number] HIP FRACTUREA. Femoral Head, Right Hip.A. Femoral Head, Right Hip.Received fresh labeled with the patient's name, accession number and "right hip femoral head" is a 4.0 x 4.0 x 3.0 cm femoral head with a jagged, hemorrhagic surgical margin. The articular s urface is smooth to finely granular. The cut surface is zurita-yellow, diffusely hemorrhagic at the margin, trabeculated and firm. Lens Assorter sections are submitted in A1-A3 following decalcification,with the margin in A1.HANNAH Cox, HT (ASCP)Performed.[facility], Department of Pathology, [address] [place] [address], [facility], Department of Pathology, [address] [place] [address], [facility], Department of Pathology, [address] [place] [address], YGUE-CoV2/RT-PCR (Asymptomatic ONLY)2022-04-13 17:25:46 Test Item Value Reference Interpretation Comments Range SARS-COV2/RT-PCR Negative Negative The SARS-Co V-2 (test code = target nucleic 74179-1) acids are not detected in thi s [...] revoked sooner. Fact Sheet for Healthcare Providers: https://www.[employer]/Documents/Xp ert%20Xpress%20SAR S%20CoV-2/Fact%20S heets/302-5832%20S ARS-COV-2%20HEALTH CARE%20PROVIDERS%2 0FACT%20SHEET.pdf Fact Sheet for Healthcare Patients: https://www.[employer]/Documents/Xp ert%20Xpress%20SAR S%20CoV-2/Fact%20S heets/302-3801%20S ARS-COV-2%20PATIEN T%20FACT%20SHEET.p df Lab Interpretation Normal (test code = 38376-1) [facility]2022-04-13 17:25:46 Test Item Value Reference Interpretation Comments Range SARS-COV2/RT-PCR Negative Negative The SARS-Co V-2 (test code = target nucleic 79623-9) acids are not detected in thi s [...] revoked sooner. Fact Sheet for Healthcare Providers: https://www.Scientific Intake/Documents/Xp ert%20Xpress%20SAR S%20CoV-2/Fact%20S heets/302-3802%20S ARS-COV-2%20HEALTH CARE%20PROVIDERS%2 0FACT%20SHEET.pdf Fact Sheet for Healthcare Patients: https://www.Scientific Intake/Documents/Xp ert%20Xpress%20SAR S%20CoV-2/Fact%20S heets/302-3801%20S ARS-COV-2%20PATIEN T%20FACT%20SHEET.p df Lab Interpretation Normal (test code = 62956-1) [facility]2022-04-13 17:25:46 Test Item Value Reference Interpretation Comments Range SARS-COV2/RT-PCR Negative Negative The SARS-Co V-2 (test code = target nucleic 75150-1) acids are not detected in thi s [...] revoked sooner. Fact Sheet for Healthcare Providers: https://www.Scientific Intake/Documents/Xp ert%20Xpress%20SAR S%20CoV-2/Fact%20S heets/302-3802%20S ARS-COV-2%20HEALTH CARE%20PROVIDERS%2 0FACT%20SHEET.pdf Fact Sheet for Healthcare Patients: https://www.Scientific Intake/Documents/Xp ert%20Xpress%20SAR S%20CoV-2/Fact%20S heets/302-3801%20S ARS-COV-2%20PATIEN T%20FACT%20SHEET.p df Lab Interpretation Normal (test code = 18988-7) [facility]omatic [facility]2022-04-13 17:25:46 Test Item Value Reference Interpretation Comments Range SARS-COV2/RT-PCR Negative Negative The SARS-Co V-2 (test code = target nucleic 77241-3) acids are not detected in thi s [...] revoked sooner. Fact Sheet for Healthcare Providers: https://www.Scientific Intake/Documents/Xp ert%20Xpress%20SAR S%20CoV-2/Fact%20S heets/3023802%20S ARS-COV-2%20HEALTH CARE%20PROVIDERS%2 0FACT%20SHEET.pdf Fact Sheet for Healthcare Patients: https://www.Scientific Intake/Documents/Xp ert%20Xpress%20SAR S%20CoV-2/Fact%20S heets/3023801%20S ARS-COV-2%20PATIEN T%20FACT%20SHEET.p df Lab Interpretation Normal (test code = 66019-1) [facility]omatic [facility]2022-04-13 17:25:46 Test Item Value Reference Interpretation Comments Range SARS-COV2/RT-PCR Negative Negative The SARS-Co V-2 (test code = target nucleic 43430-9) acids are not detected in thi s [...] revoked sooner. Fact Sheet for Healthcare Providers: https://www.Scientific Intake/Documents/Xp ert%20Xpress%20SAR S%20CoV-2/Fact%20S heets/302-3802%20S ARS-COV-2%20HEALTH CARE%20PROVIDERS%2 0FACT%20SHEET.pdf Fact Sheet for Healthcare Patients: https://www.Scientific Intake/Documents/Xp ert%20Xpress%20SAR S%20CoV-2/Fact%20S heets/302-3801%20S ARS-COV-2%20PATIEN T%20FACT%20SHEET.p df Lab Interpretation Normal (test code = 25098-1) [facility]omatic [facility]2022-04-13 17:25:46 Test Item Value Reference Interpretation Comments Range SARS-COV2/RT-PCR Negative Negative The SARS-Co V-2 (test code = target nucleic 69311-5) acids are not detected in thi s [...] revoked sooner. Fact Sheet for Healthcare Providers: https://www.Scientific Intake/Documents/Xp ert%20Xpress%20SAR S%20CoV-2/Fact%20S heets/302-3802%20S ARS-COV-2%20HEALTH CARE%20PROVIDERS%2 0FACT%20SHEET.pdf Fact Sheet for Healthcare Patients: https://www.Scientific Intake/Documents/Xp ert%20Xpress%20SAR S%20CoV-2/Fact%20S heets/302-3801%20S ARS-COV-2%20PATIEN T%20FACT%20SHEET.p df Lab Interpretation Normal (test code = 47556-2) [facility]omatic [facility]2022-04-13 17:25:46 Test Item Value Reference Interpretation Comments Range SARS-COV2/RT-PCR Negative Negative The SARS-Co V-2 (test code = target nucleic 53791-2) acids are not detected in thi s [...] revoked sooner. Fact Sheet for Healthcare Providers: https://www.Scientific Intake/Documents/Xp ert%20Xpress%20SAR S%20CoV-2/Fact%20S heets/302-3802%20S ARS-COV-2%20HEALTH CARE%20PROVIDERS%2 0FACT%20SHEET.pdf Fact Sheet for Healthcare Patients: https://www.Scientific Intake/Documents/Xp ert%20Xpress%20SAR S%20CoV-2/Fact%20S heets/302-3801%20S ARS-COV-2%20PATIEN T%20FACT%20SHEET.p df Lab Interpretation Normal (test code = 88100-3) [facility])2022-04-13 17:25:46 Test Item Value Reference Range Interpretation Comments SARS-COV2/RT-PCR Negative Negative The SARS-Co V-2 target (test code = nucleic acids a re not 7628105) detected in thi s specimen. Negative result [...] revoked sooner. Fact Sheet for Healthcare Providers: https://www.Revstr m/Documents/Xpert%20Xpress%20SARS%20CoV-2/Fact%20Sheets/3023802%17HUIA-WDL-1%20 HEALTHCARE%20PROVIDERS%20FACT%20SHEET.pdf Fact Sheet for Healthcare Patients: https://www.QuickoLabs/Documents/Xpert%20Xp ress%20SARS%20CoV-2/Fact%20Sheets/3023801%70CDRD-CUH-9%20PATIENT%20FACT%20SHEET .pdfBLOOD [id number] 17:00:19 Test Item Value Reference Range Interpretation Comments CULTURE (BEAKER) (test No growth in 5 days code = 1095) BLOOD [id number] 17:00:19 Test Item Value Reference Range Interpretation Comments CULTURE (BEAKER) (test No growth in 5 days code = 1095) POC-Glucose [id number] 15:34:27 Test Item Value Reference Range Interpretation Comments POC-Glucose Meter (test 129 mg/dL 70-110 H : TE STED AT [facility] code = 1538) [address] [facility], 770 30: Physics Faculty Member/Techni aldo ID = [id number] for Desmond, Lina Lab Interpretation (test Abnormal code = 51762-7) [facility]-Glucose [id number] 15:34:27 Test Item Value Reference Range Interpretation Comments POC-Glucose Meter (test 129 mg/dL 70-110 H : TE STED AT [facility] code = 1538) [address] [place] [address], 770 30: Physics Faculty Member/Techni aldo ID = [id number] for Desmond, Lina Lab Interpretation (test Abnormal code = 37643-7) [facility]-Glucose [id number] 15:34:27 Test Item Value Reference Range Interpretation Comments POC-Glucose Meter (test 129 mg/dL 70-110 H : TE STED AT [facility] code = 1538) [address] [place] [address], 770 30: Physics Faculty Member/Techni aldo ID = [id number] for Desmond, Lina Lab Interpretation (test Abnormal code = 12564-0) [facility]-Glucose [id number] 15:34:27 Test Item Value Reference Range Interpretation Comments POC-Glucose Meter (test 129 mg/dL 70-110 H : TE STED AT [facility] code = 1538) [address] [place] [address], 770 30: Physics Faculty Member/Techni aldo ID = [id number] for Desmond, Lina Lab Interpretation (test Abnormal code = 17334-7) [facility]-Glucose [id number] 15:34:27 Test Item Value Reference Range Interpretation Comments POC-Glucose Meter (test 129 mg/dL 70-110 H : TE STED AT [facility] code = 1538) [address] [place] [address], 770 30: Physics Faculty Member/Techni aldo ID = [id number] for Desmond, Lina Lab Interpretation (test Abnormal code = 59942-2) [facility]-Glucose [id number] 15:34:27 Test Item Value Reference Range Interpretation Comments POC-Glucose Meter (test 129 mg/dL 70-110 H : TE STED AT [facility] code = 1538) [address] [place] [address], 770 30: Physics Faculty Member/Techni aldo ID = [id number] for Desmond, Lina Lab Interpretation (test Abnormal code = 81976-6) [facility] [id number] 15:34:27 Test Item Value Reference Range Interpretation Comments POC-Glucose Meter (test 129 mg/dL 70-110 H : TE STED AT [facility] code = 1538) [address] [facility], 770 30: Physics Faculty Member/Techni aldo ID = [id number] for Lina Logan Lab Interpretation (test Abnormal code = 80300-4) [facility] [id number] 15:34:27 Test Item Value Reference Range Interpretation Comments POC-GLUCOSE METER 129 mg/dL 70-110 H : [facility] (BEAKER) (test code = [facility], 1538) 30719: Physics Faculty Member/Techni aldo ID = [id number] for Lina Dotson POCT-GLUCOSE [id number] 11:44:07 Test Item Value Reference Range Interpretation Comments POC-GLUCOSE METER 118 mg/dL 70-110 H : [facility] (BEAKER) (test code = [facility], 1538) 12958: Physics Faculty Member/Techni aldo ID = [id number] for Lina Dotson POCT-GLUCOSE [id number] 08:00:15 Test Item Value Reference Range Interpretation Comments POC-GLUCOSE METER 114 mg/dL 70-110 H : [facility] (BEAKER) (test code = [facility], 1538) 88471: Physics Faculty Member/Techni aldo ID = [id number] for Lina Dotson [id number] 05:48:59 Test Item Value Reference Range Interpretation Comments MAGNESIUM (BEAKER) 2.0 mg/dL 1.6-2.6 Specimen slightly (test code = 627) hemolyzed Physics Faculty Member ID - PIAYA AGIGQLWPMYZ2283-60-46 05:48:59 Test Item Value Reference Range Interpretation Comments PHOSPHORUS (BEAKER) 3.9 mg/dL 2.3-4.7 Specimen slightly (test code = 604) hemolyzed Physics Faculty Member ID - PIAYA LBASIC METABOLIC [id number] 05:48:59 Test Item Value Reference Range Interpretation [...] not appl icable for dialysis patien ts Physics Faculty Member ID - PIAYA LCBC (HEMOGRAM ONLY)2022-04-13 04:52:27 [...] 0-0 (BEAKER) (test code = 413) POCT-GLUCOSE [id number] 21:03:16 Test Item Value Reference Range Interpretation Comments POC-GLUCOSE METER 111 mg/dL 70-110 H : TESTED A T [facility] 6720 (BEAKER) (test code = [facility], 1538) 58366: Physics Faculty Member/Techni aldo ID = [id number] for Ch avez, Sivan POCT-GLUCOSE [id number] 15:53:40 Test Item Value Reference Range Interpretation Comments POC-GLUCOSE METER 133 mg/dL 70-110 H : TESTED A T [facility] 6720 (BEAKER) (test code [facility], = 1538) 11386: Physics Faculty Member/Techni aldo ID = [id number] for LEWI S -Claudio, LATAND GUERRERO POCT-GLUCOSE [id number] 12:54:17 Test Item Value Reference Range Interpretation Comments POC-GLUCOSE METER 130 mg/dL 70-110 H : TESTED A T [facility] 6720 (BEAKER) (test code [facility], = 1538) 31711: Physics Faculty Member/Techni aldo ID = [id number] for LEWI S -Claudio, LATAND GUERRERO POCT-GLUCOSE [id number] 08:18:20 Test Item Value Reference Range Interpretation Comments POC-GLUCOSE METER 116 mg/dL 70-110 H : TESTED A T [facility] 6720 (BEAKER) (test code [facility], = 1538) 56950: Physics Faculty Member/Techni aldo ID = [id number] for LEWI S -Claudio, LATAND GUERRERO BASIC METABOLIC [id number] 04:23:08 Test Item Value Reference Range Interpretation [...] not appl icable for dialysis patien ts Physics Faculty Member ID Carlo ELVIN [id number] 04:23:08 Test Item Value Reference Range Interpretation Comments MAGNESIUM (BEAKER) (test code = 2.0 mg/dL 1.6-2.6 627) Physics Faculty Member ID - ELVIN [id number] 04:23:08 Test Item Value Reference Range Interpretation Comments PHOSPHORUS (BEAKER) (test code = 2.6 mg/dL 2.3-4.7 604) Physics Faculty Member ID Carlo OCONNOR WCBC (HEMOGRAM ONLY)2022-04-12 04:05:05 [...] 0-0 (BEAKER) (test code = 413) POCT-GLUCOSE [id number] 20:52:48 Test Item Value Reference Range Interpretation Comments POC-GLUCOSE METER 151 mg/dL 70-110 H : TESTED A T [facility] 6720 (BEAKER) (test code = [facility], 153) 73065: Physics Faculty Member/Techni aldo ID = [id number] for SLIM VICTOR POCT-GLUCOSE [id number] 16:09:14 Test Item Value Reference Range Interpretation Comments POC-GLUCOSE METER 130 mg/dL 70-110 H : TESTED A T [facility] 6720 (BEAKER) (test code = [facility], 153) 39027: Physics Faculty Member/Techni aldo ID = [id number] for Misty Powellcourtney POCT-GLUCOSE [id number] 11:25:47 Test Item Value Reference Range Interpretation Comments POC-GLUCOSE METER 99 mg/dL 70-110 : TESTED A T [facility] 6720 (BEAKER) (test code = [facility], 153) 64124: Physics Faculty Member/Techni aldo ID = [id number] for Izzy Ruslan Urine [id number] 08:48:43 Test Item Value Reference Range Interpretation Comments Result (test code = 6463-4) No growth [facility] [id number] 08:48:43 Test Item Value Reference Range Interpretation Comments Result (test code = 6463-4) No growth [facility] tykyayd2922-73-05 08:48:43 Test Item Value Reference Range Interpretation Comments Result (test code = 6463-4) No growth [facility] [id number] 08:48:43 Test Item Value Reference Range Interpretation Comments Result (test code = 6463-4) No growth [facility] [id number] 08:48:43 Test Item Value Reference Range Interpretation Comments Result (test code = 6463-4) No growth [facility] nyfwzdj3902-34-70 08:48:43 Test Item Value Reference Range Interpretation Comments Result (test code = 6463-4) No growth [facility] [id number] 08:48:43 Test Item Value Reference Range Interpretation Comments Result (test code = 6463-4) No growth [facility] [id number] 08:48:43 Test Item Value Reference Range Interpretation Comments CULTURE (BEAKER) (test code = 1095) No growth POCT-GLUCOSE [id number] 07:40:08 Test Item Value Reference Range Interpretation Comments POC-GLUCOSE METER 96 mg/dL 70-110 : TESTED A T [facility] 6720 (BEAKER) (test code = [facility] [place], 1538) 55855: Physics Faculty Member/Techni aldo ID = [id number] for Ruslan Magana [id number] 06:30:09 Test Item Value Reference Range Interpretation Comments PHOSPHORUS (BEAKER) (test code = 2.2 mg/dL 2.3-4.7 L 604) Physics Faculty Member ID - MIMI GBASIC METABOLIC [id number] 06:30:08 Test Item Value Reference Range Interpretation [...] not appl icable for dialysis patien ts Physics Faculty Member ID - MIMI [id number] 06:30:08 Test Item Value Reference Range Interpretation Comments MAGNESIUM (BEAKER) (test code = 2.1 mg/dL 1.6-2.6 627) Physics Faculty Member ID - MIMI GCBC (HEMOGRAM ONLY)2022-04-11 05:58:00 [...] 0-0 (BEAKER) (test code = 413) POCT-GLUCOSE [id number] 21:31:00 Test Item Value Reference Range Interpretation Comments POC-GLUCOSE METER 117 mg/dL 70-110 H : TESTED A T [facility] 6720 (BEAKER) (test code = [facility], [facility]8) 669[address]: Physics Faculty Member/Techni aldo ID = [id number] for SLMI VICTOR POCT-GLUCOSE [id number] 16:59:44 Test Item Value Reference Range Interpretation Comments POC-GLUCOSE METER 110 mg/dL 70-110 : TESTED A T [facility] 6720 (BEAKER) (test code = [facility], [facility]8) 28557: Physics Faculty Member/Techni aldo ID = [id number] for RA MOS, DARLINE POCT-GLUCOSE [id number] 11:22:31 Test Item Value Reference Range Interpretation Comments POC-GLUCOSE METER 156 mg/dL 70-110 H : TESTED A T [facility] 6720 (BEAKER) (test code = [facility], 1538) 40623: Physics Faculty Member/Techni aldo ID = [id number] for RA MOS, DARLINE POCT-GLUCOSE [id number] 07:51:14 Test Item Value Reference Range Interpretation Comments POC-GLUCOSE METER 113 mg/dL 70-110 H : TESTED A T [facility] 6720 (BEAKER) (test code = [facility], 153) 62842: Physics Faculty Member/Techni aldo ID = [id number] for RA MOS, DARLINE [id number] 06:43:13 Test Item Value Reference Range Interpretation Comments MAGNESIUM (BEAKER) 2.0 mg/dL 1.6-2.6 Specimen slightly (test code = 627) hemolyzed Physics Faculty Member ID - HUMBLE [id number] 06:43:13 Test Item Value Reference Range Interpretation Comments PHOSPHORUS (BEAKER) 2.1 mg/dL 2.3-4.7 L Specimen slightly (test code = 604) hemolyzed Physics Faculty Member ID - HUMBLE MBASIC METABOLIC [id number] 06:43:13 Test Item Value Reference Range Interpretation [...] not appl icable for dialysis patien ts Physics Faculty Member ID - HUMBLE MCBC (HEMOGRAM ONLY)2022-04-10 06:18:00 [...] (BEAKER) (test code = 413) Prepare Leuko-Red [id number] 23:54:00 Test Item Value Reference Range Interpretation Comments CROSSMATCH (test code = 2264) COMPATIBLE Unit ABO (test code = O Pos 5538907) UNIT NUMBER (test code = [id number] 934-0) Status (test code = 1608118) [facility] Blood Bank Product (test code RED BLOOD CELLS = 2263) PRODUCT CODE (test code = W0511P24 933-2) [facility] Leuko-Red [id number] 23:54:00 Test Item Value Reference Range Interpretation Comments CROSSMATCH (test code = 2264) COMPATIBLE Unit ABO (test code = O Pos 3410350) UNIT NUMBER (test code = [id number] 934-0) Status (test code = 4510195) [facility]INCP[facility] Blood Bank Product (test code RED BLOOD CELLS = 2263) PRODUCT CODE (test code = M0661O23 933-2) [facility] Leuko-Red [id number] 23:54:00 Test Item Value Reference Range Interpretation Comments CROSSMATCH (test code = 2264) COMPATIBLE Unit ABO (test code = O Pos 9063533) UNIT NUMBER (test code = [id number] 934-0) Status (test code = 2786085) TX_TIMEINCHART Blood Bank Product (test code RED BLOOD CELLS = 2263) PRODUCT CODE (test code = I8947S09 933-2) [facility] Leuko-Red [id number] 23:54:00 Test Item Value Reference Range Interpretation Comments CROSSMATCH (test code = 2264) COMPATIBLE Unit ABO (test code = O Pos 9786805) UNIT NUMBER (test code = [id number] 934-0) Status (test code = 6119223) TX_TIMEINCHART Blood Bank Product (test code RED BLOOD CELLS = 2263) PRODUCT CODE (test code = L5516X91 933-2) [facility] Leuko-Red [id number] 23:54:00 Test Item Value Reference Range Interpretation Comments CROSSMATCH (test code = 2264) COMPATIBLE Unit ABO (test code = O Pos 0724550) UNIT NUMBER (test code = [id number] 934-0) Status (test code = 5381470) TX_TIMEINCHART Blood Bank Product (test code RED BLOOD CELLS = 2263) PRODUCT CODE (test code = X6144Y78 933-2) [facility] Leuko-Red [id number] 23:54:00 Test Item Value Reference Range Interpretation Comments CROSSMATCH (test code = 2264) COMPATIBLE Unit ABO (test code = O Pos 2096971) UNIT NUMBER (test code = [id number] 934-0) Status (test code = 2204417) TX_TIMEINCHART Blood Bank Product (test code RED BLOOD CELLS = 2263) PRODUCT CODE (test code = I1128Y82 933-2) [facility] Leuko-Red [id number] 23:54:00 Test Item Value Reference Range Interpretation Comments CROSSMATCH (test code = 2264) COMPATIBLE Unit ABO (test code = O Pos 5276995) UNIT NUMBER (test code = [id number] 934-0) Status (test code = 4681430) TX_TIMEINCHART Blood Bank Product (test code RED BLOOD CELLS = 2263) PRODUCT CODE (test code = C4223O55 933-2) [facility] [id number] 23:08:16 Test Item Value Reference Range Interpretation Comments POC-GLUCOSE METER 119 mg/dL 70-110 H : TESTED A T [facility] 6720 (BEAKER) (test code = [place], 1538) [address]: Physics Faculty Member/Techni aldo ID = [id number] for Paris Lipscomb POCT-GLUCOSE [id number] 17:18:13 Test Item Value Reference Range Interpretation Comments POC-GLUCOSE METER 172 mg/dL 70-110 H : TESTED A T [facility] 6720 (BEAKER) (test code = [facility] [place], 1538) [address]: Physics Faculty Member/Techni aldo ID = [id number] for WINNIE RAMÍREZ CBC (HEMOGRAM ONLY)2022-04-09 16:39:21 [...] 0-0 (BEAKER) (test code = 413) POCT-GLUCOSE [id number] 11:54:11 Test Item Value Reference Range Interpretation Comments POC-GLUCOSE METER 182 mg/dL 70-110 H : TESTED A T [facility] 6720 (BEAKER) (test code = [facility], 1538) 12797: Physics Faculty Member/Techni aldo ID = [id number] for DE NNWINNIE ROTHMAN POCT-GLUCOSE [id number] 07:49:48 Test Item Value Reference Range Interpretation Comments POC-GLUCOSE METER 139 mg/dL 70-110 H : TESTED A T [facility] 6720 (BEAKER) (test code = [facility], 1538) 75012: Physics Faculty Member/Techni aldo ID = [id number] for DE NNWINNIE ROTHMAN Venous doppler legs [id number] 07:38:03Ejection FractionSLEH ECHO HEARTLAB MKCKESSON [facility] bilateral 2022-04-09 07:38:03Ejection FractionSLEH ECHO HEARTLAB MKCKESSON [facility] do[facility] legs [id number] 07:38:03Ejection FractionSLEH ECHO HEARTLAB MKCKESSON [facility] legs [id number] 07:38:03Ejection FractionSLEH ECHO HEARTLAB MKCKESSON [facility]ium[facility] legs bilateral 2022-04-09 07:38:03Ejection FractionSLEH ECHO HEARTLAB MKCKESSON [facility] legs ltkmjtysx0421-15-63 07:38:03Ejection FractionSLEH ECHO HEARTLAB MKCKESSON [facility] legs dwqbvsvok8296-08-60 07:38:03Ejection FractionSLEH ECHO HEARTLAB MKCKESSON [facility]iumPHOSPHORUS2022-07-29 06:41:32 Test Item Value Reference Range Interpretation Comments PHOSPHORUS (BEAKER) (test code = 2.5 mg/dL 2.3-4.7 604) Physics Faculty Member ID - ELVIN WBASIC METABOLIC [id number] 06:41:31 Test Item Value Reference Range Interpretation [...] not appl icable for dialysis patien ts Physics Faculty Member ID - ELVIN DKKYIFKDBQ9974-07-02 06:41:31 Test Item Value Reference Range Interpretation Comments MAGNESIUM (BEAKER) (test code = 4.3 mg/dL 1.6-2.6 H 627) Physics Faculty Member ID Carlo OCONNOR WCBC W/PLT COUNT & AUTO [id number] 06:12:33 Test Item Value Reference Range Interpretation [...] PERCENT (BEAKER) (test code = 2801) POCT-GLUCOSE [id number] 00:19:02 Test Item Value Reference Range Interpretation Comments POC-GLUCOSE METER 144 mg/dL 70-110 H : TESTED A T [facility] 6720 (BEAKER) (test code = [place], 1538) 0[address]: Physics Faculty Member/Techni aldo ID = [id number] for Sp encer, Ashwin RAD, PELVIS, 1 OR 2 [id number] 23:03:00Reason for exam:->postop R hip hemion floor as not done in pacuShould this be performed at the bedside?->Yes [facility] : 1950 Sex: [...] Signed: Ashely Peralta Verified Date/Time: 04/08/2022 23:03:37 [facility] [id number] 22:31:44 Test Item Value Reference Range Interpretation [...] not appl icable for dialysis patien ts Physics Faculty 22:31:14 Test Item Value Reference Range Interpretation Comments MAGNESIUM (BEAKER) (test code = 1.6 mg/dL 1.6-2.6 627) Physics Faculty 22:31:14 Test Item Value Reference Range Interpretation Comments PHOSPHORUS (BEAKER) (test code = 2.0 mg/dL 2.3-4.7 L 604) Physics Faculty Member ID - BSLACTIC ACID, [id number] 22:23:33 Test Item Value Reference Range Interpretation Comments LACTATE BLOOD VENOUS (2) (BEAKER) 1.96 mmol/L 0.50-2.20 (test code = 2872) Physics Faculty Member ID - BSCBC (HEMOGRAM ONLY)2022-04-08 22:07:28 Test [...] = 413) CBC W/PLT COUNT & AUTO [id number] 18:40:26 Test Item Value Reference Range Interpretation [...] (BEAKER) (test code = 2801) LACTIC ACID, [id number] 16:35:30 Test Item Value Reference Range Interpretation Comments LACTATE BLOOD VENOUS (2) (BEAKER) 3.04 mmol/L 0.50-2.20 H (test code = 3312) Physics Faculty Member ID - BSBASIC METABOLIC [id number] 16:24:06 Test Item Value Reference Range Interpretation [...] decreased 60-89 G3a Mildl y to moderately 45- 59 G3b Moderately to s everely 30-44 G4 Severl y decreased 15-29 G5 Kidney failure <15Reported eGF R is based on the CKD-EPI 2020 equation that d oes not use a race coefficientEsti mated GFR is not as accur ate as Creatinine Celena lety in predicting glom erular filtration rate . Estimated GFR is not appl icable for dialysis patien ts Physics Faculty Member ID - ADMINRAD, CHEST, 1 VIEW, NON [id number] 16:12:00Reason for exam:->dyspneaShould this be performed at the bedside?->Yes [facility] : 1950 Sex: FFINAL REPORT CLINICAL HISTORY: dyspnea TECHNIQUE: 1 view of the chest. COMPARISON: None IMPRESSION: There are no focal infiltrates or effusions. The cardiomediastinal silhouette is magnified by technique. The osseous structures appear intact. Signed: Derrick Ignacio Verified Date/Time: 04/08/2022 16:12:21 Reading Location: [facility] Radiology Reading Room POCT-GLUCOSE METER 2022-04-08 15:31:41 Test Item Value Reference Range Interpretation Comments POC-GLUCOSE METER 208 mg/dL 70-110 H : TESTED A T [facility] 6720 (LIA) (test code = [place], 1538) 75245: Physics Faculty Member/Techni aldo ID = [id number] for Evangelina Hernandes POCT-GLUCOSE [id number] 11:42:48 Test Item Value Reference Range Interpretation Comments POC-GLUCOSE METER 240 mg/dL 70-110 H : TESTED A T [facility] 6720 (LIA) (test code = [place], 1538) 73645: Physics Faculty Member/Techni aldo ID = [id number] for Evangelina Hernandes CT, EXTREMITY, LOWER WITHOUT CONTRAST, [id number] 08:41:00Unlisted Reason for Exam - Click Yes and Enter Reason Below->Yesevaluate for fractureUnlisted Reason for Exam->evaluate for fracture with cement extravasationPlease specify:->[facility] : 1950 Sex: [...] Arrington Verified Date/Time: 04/08/2022 08:41:48 Reading Location: [facility] [id number] Ortho Consult Reading Room -GLUCOSE [id number] 17:39:33 Test Item Value Reference Range Interpretation Comments POC-GLUCOSE METER 102 mg/dL 70-110 : TESTED A T [facility] 6720 ([facility]) (test code = [place], 1538) 19108: Physics Faculty Member/Techni aldo ID = [id number] for Wi lliams, Joana RAD, PELVIS, 1 OR 2 [id number] 16:39:00Reason for exam:->RIGHT HIP [facility] : 1950 Sex: FFINAL REPORT Pelvis History provided: Right hip arthroplasty Components of right hip arthroplasty are in place. Left hip intact. Signed: Matt Juárez MDReport Verified Date/Time: 6:39:06 Reading Location: [facility] Diagnostic Imaging Reading Room - [facility] 1.310.12 POCT-GLUCOSE [id number] 10:01:19 Test Item Value Reference Range Interpretation Comments POC-GLUCOSE METER 111 mg/dL 70-110 H : TESTED Galina Brown [facility] 6720 (BEAKER) (test code = [place], 1538) 12153: Physics Faculty Member/Techni aldo ID = [id number] for IMELDA JC CBC W/PLT COUNT & AUTO [id number] 07:15:22 Test Item Value Reference Range Interpretation [...] = 2801) Urinalysis w/Microscopic + Reflex to [id number] 06:45:42 Test Item Value Reference Range Interpretation Comments Color, UA (test code Yellow = 5778-6) Clarity, UA (test Clear code = 5767-9) Specific [place], UA 1.026 1.001-1.035 (test code = 5811-5) pH, UA (test code = 6.5 5.0-8.0 5803-2) Protein, UA (test 20 mg/dL Negative A code = 74967-2) Glucose, UA (test Negative Negative code = 365) Ketones, UA (test Negative Negative code = 2514-8) Bilirubin, UA (test Negative Negative code = 67755-8) Blood, UA (test code Trace Negative A = 89088-3) Nitrite, UA (test Negative Negative code = 5802-4) Leukocytes, UA (test Moderate Negative A code = 5799-2) Urobilinogen, UA 0.2 mg/dL 0.2-1.0 (test code = 78229-1) RBC, UA (test code = 12 See_Comment [Autom ated 14910-4) message] The system which generated this result [...] Bacteria, UA (test None Seen code = 90274-4) Mucus (test code = Occasional 8247-9) Squam Epithel, UA <1 See_Comment [Automate d (test code = 94202-8) messag e] The system which generated this result transmitted reference range : /HPF. The reference range was not used to interpret this result as normal/abnormal . Crystals, Urine (test None Seen code = 58580-4) Specimen Source (test code = 2795) TORRES (test code = TORRES) Physics Faculty Member ID - [auto]Physics Faculty Member ID - tech Lab Interpretation Abnormal (test code = 13908-6) [facility] Culture 2022-04-07 06:45:42 Test Item Value Reference Range Interpretation Comments Color, UA (test code Yellow = 5778-6) Clarity, UA (test Clear code = 5767-9) Specific [place], UA 1.026 1.001-1.035 (test code = 5811-5) pH, UA (test code = 6.5 5.0-8.0 5803-2) Protein, UA (test 20 mg/dL Negative A code = 94264-9) Glucose, UA (test Negative Negative code = 365) Ketones, UA (test Negative Negative code = 2514-8) Bilirubin, UA (test Negative Negative code = 89614-7) Blood, UA (test code Trace Negative A = 52857-5) Nitrite, UA (test Negative Negative code = 5802-4) Leukocytes, UA (test Moderate Negative A code = 5799-2) Urobilinogen, UA 0.2 mg/dL 0.2-1.0 (test code = 56211-6) RBC, UA (test code = 12 See_Comment [Autom ated 51355-1) message] The system which generated this result [...] Bacteria, UA (test None Seen code = 57774-4) Mucus (test code = Occasional 8247-9) Squam Epithel, UA <1 See_Comment [Automate d (test code = 13777-8) messag e] The system which generated this result transmitted reference range : /HPF. The reference range was not used to interpret this result as normal/abnormal . Crystals, Urine (test None Seen code = 31597-9) Specimen Source (test code = 2795) TORRES (test code = TORRES) Physics Faculty Member ID - [auto]Physics Faculty Member ID - tech Lab Interpretation Abnormal (test code = 64872-3) [facility] Reflex to Culture 2022-04-07 06:45:42 Test Item Value Reference Range Interpretation Comments Color, UA (test code Yellow = 5778-6) Clarity, UA (test Clear code = 5767-9) Specific [place], UA 1.026 1.001-1.035 (test code = 5811-5) pH, UA (test code = 6.5 5.0-8.0 5803-2) Protein, UA (test 20 mg/dL Negative A code = 37906-5) Glucose, UA (test Negative Negative code = 365) Ketones, UA (test Negative Negative code = 2514-8) Bilirubin, UA (test Negative Negative code = 55704-1) Blood, UA (test code Trace Negative A = 28903-0) Nitrite, UA (test Negative Negative code = 5802-4) Leukocytes, UA (test Moderate Negative A code = 5799-2) Urobilinogen, UA 0.2 mg/dL 0.2-1.0 (test code = 89532-2) RBC, UA (test code = 12 See_Comment [Autom ated 63047-8) message] The system which generated this result [...] Bacteria, UA (test None Seen code = 23952-8) Mucus (test code = Occasional 8247-9) Squam Epithel, UA <1 See_Comment [Automate d (test code = 33011-8) messag e] The system which generated this result transmitted reference range : /HPF. The reference range was not used to interpret this result as normal/abnormal . Crystals, Urine (test None Seen code = 16003-8) Specimen Source (test code = 2795) TORRES (test code = TORRES) Physics Faculty Member ID - [auto]Physics Faculty Member ID - tech Lab Interpretation Abnormal (test code = 00429-1) [facility] Reflex to Culture 2022-04-07 06:45:42 Test Item Value Reference Range Interpretation Comments Color, UA (test code Yellow = 5778-6) Clarity, UA (test Clear code = 5767-9) Specific [place], UA 1.026 1.001-1.035 (test code = 5811-5) pH, UA (test code = 6.5 5.0-8.0 5803-2) Protein, UA (test 20 mg/dL Negative A code = 64892-7) Glucose, UA (test Negative Negative code = 365) Ketones, UA (test Negative Negative code = 2514-8) Bilirubin, UA (test Negative Negative code = 45180-0) Blood, UA (test code Trace Negative A = 11909-0) Nitrite, UA (test Negative Negative code = 5802-4) Leukocytes, UA (test Moderate Negative A code = 5799-2) Urobilinogen, UA 0.2 mg/dL 0.2-1.0 (test code = 95613-6) RBC, UA (test code = 12 See_Comment [Autom ated 10074-8) message] The system which generated this result [...] Bacteria, UA (test None Seen code = 32749-7) Mucus (test code = Occasional 8247-9) Squam Epithel, UA See_Comment [Automate d (test code = 79777-4) messag e] The system which generated this result transmitted reference range : /HPF. The reference range was not used to interpret this result as normal/abnormal . Crystals, Urine (test None Seen code = 98965-8) Specimen Source (test code = 2795) TORRES (test code = TORRES) Physics Faculty Member ID - [auto]Physics Faculty Member ID - tech Lab Interpretation Abnormal (test code = 95076-7) [facility] Reflex to Culture 2022-04-07 06:45:42 Test Item Value Reference Range Interpretation Comments Color, UA (test code Yellow = 5778-6) Clarity, UA (test Clear code = 5767-9) Specific [place], UA 1.026 1.001-1.035 (test code = 5811-5) pH, UA (test code = 6.5 5.0-8.0 5803-2) Protein, UA (test 20 mg/dL Negative A code = 04229-5) Glucose, UA (test Negative Negative code = 365) Ketones, UA (test Negative Negative code = 2514-8) Bilirubin, UA (test Negative Negative code = 88533-5) Blood, UA (test code Trace Negative A = 84622-5) Nitrite, UA (test Negative Negative code = 5802-4) Leukocytes, UA (test Moderate Negative A code = 5799-2) Urobilinogen, UA 0.2 mg/dL 0.2-1.0 (test code = 83965-5) RBC, UA (test code = 12 See_Comment [Autom ated 19618-5) message] The system which generated this result [...] Bacteria, UA (test None Seen code = 19095-9) Mucus (test code = Occasional 8247-9) Squam Epithel, UA See_Comment [Automate d (test code = 30722-4) messag e] The system which generated this result transmitted reference range : /HPF. The reference range was not used to interpret this result as normal/abnormal . Crystals, Urine (test None Seen code = 08617-2) Specimen Source (test code = 2795) TORRES (test code = TORRES) Physics Faculty Member ID - [auto]Physics Faculty Member ID - tech Lab Interpretation Abnormal (test code = 34945-6) [facility] Reflex to Culture 2022-04-07 06:45:42 Test Item Value Reference Range Interpretation Comments Color, UA (test code Yellow = 5778-6) Clarity, UA (test Clear code = 5767-9) Specific [place], UA 1.026 1.001-1.035 (test code = 5811-5) pH, UA (test code = 6.5 5.0-8.0 5803-2) Protein, UA (test 20 mg/dL Negative A code = 88310-4) Glucose, UA (test Negative Negative code = 365) Ketones, UA (test Negative Negative code = 2514-8) Bilirubin, UA (test Negative Negative code = 45647-4) Blood, UA (test code Trace Negative A = 69737-3) Nitrite, UA (test Negative Negative code = 5802-4) Leukocytes, UA (test Moderate Negative A code = 5799-2) Urobilinogen, UA 0.2 mg/dL 0.2-1.0 (test code = 40467-2) RBC, UA (test code = 12 See_Comment [Autom ated 91119-4) message] The system which generated this result [...] Bacteria, UA (test None Seen code = 72711-5) Mucus (test code = Occasional 8247-9) Squam Epithel, UA See_Comment [Automate d (test code = 79208-9) messag e] The system which generated this result transmitted reference range : /HPF. The reference range was not used to interpret this result as normal/abnormal . Crystals, Urine (test None Seen code = 92171-5) Specimen Source (test code = 2795) TORRES (test code = TORRES) Physics Faculty Member ID - [auto]Physics Faculty Member ID - tech Lab Interpretation Abnormal (test code = 45018-4) [facility] Reflex to Culture 2022-04-07 06:45:42 Test Item Value Reference Range Interpretation Comments Color, UA (test code Yellow = 5778-6) Clarity, UA (test Clear code = 5767-9) Specific [place], UA 1.026 1.001-1.035 (test code = 5811-5) pH, UA (test code = 6.5 5.0-8.0 5803-2) Protein, UA (test 20 mg/dL Negative A code = 51843-0) Glucose, UA (test Negative Negative code = 365) Ketones, UA (test Negative Negative code = 2514-8) Bilirubin, UA (test Negative Negative code = 17906-7) Blood, UA (test code Trace Negative A = 47835-3) Nitrite, UA (test Negative Negative code = 5802-4) Leukocytes, UA (test Moderate Negative A code = 5799-2) Urobilinogen, UA 0.2 mg/dL 0.2-1.0 (test code = 60700-0) RBC, UA (test code = 12 See_Comment [Autom ated 92103-6) message] The system which generated this result [...] Bacteria, UA (test None Seen code = 93345-6) Mucus (test code = Occasional 8247-9) Squam Epithel, UA See_Comment [Automate d (test code = 00762-2) messag e] The system which generated this result transmitted reference range : /HPF. The reference range was not used to interpret this result as normal/abnormal . Crystals, Urine (test None Seen code = 38176-8) Specimen Source (test code = 2795) TORRES (test code = TORRES) Physics Faculty Member ID - [auto]Physics Faculty Member ID - tech Lab Interpretation Abnormal (test code = 27410-7) [facility]FLEX URINE [id number] 06:45:42 Test Item Value Reference Range Interpretation [...] = 1521) SOURCE(BEAKER) (test code = 2795) Physics Faculty Member ID - [auto]Physics Faculty Member ID - techBASIC METABOLIC [id number] 06:11:49 Test Item Value Reference Range Interpretation [...] S NOT APPLICABLE FOR DIALYSIS PATIEN TS. Physics Faculty Member ID - ELVIN WSARS-COV2/RT-PCR ([facility])2022-04-07 04:44:08 Test Item Value Reference Range Interpretation Comments SARS-COV2/RT-PCR (test Negative Not Detected, Negative, code = 4077906) See external report for linked test SARS-COV-2 PERFORMING LAB [facility] SHIV (test code = 4149531) Negative result for this test determines that [...] of the Act.Fact Sheet for Healthcare Prov iders:https://www.[employer]/sites/default/files/product/documents/Fact_Sheet_HC _Ivprjmylz_Dlvm_QIFQ-OcP-9.pdfFact Sheet for Healthcare Patients:https://www.[employer].nWay/sites/default/files/product/docume nts/Grxb_Qsezg_Qyataegx_Kgfv_CUON-GxP-4.pdfPerforming Laboratory:[facility].[place], [place] [address]BDRU. METABOLIC PANEL (01229)2021-07-24 17:14:29 Test Item Value Reference Range Interpretation Comments NA (test code = 139 mmol/L 135-145 2278765020) K (test code = 4.3 mmol/L 3.5-5.0 3409786077) CL (test code = 104 mmol/L 98-108 8945499574) CO2 TOTAL (test code = 24 mmol/L 23-31 9858828468) AGAP (test code = 2-16 3046611891) BUN (test code = 18 mg/dL 7-23 5423578452) GLUCOSE (test code = 104 mg/dL 70-110 3392010031) CREATININE (test code = 1.39 mg/dL 0.50-1.04 H 9737658458) TOTAL BILI (test code = 0.4 mg/dL 0.1-1.4 8746580536) CALCIUM (test code = 9.6 mg/dL 8.6-10.6 8651565790) T PROTEIN (test code = 8.4 g/dL 6.3-8.2 H 0852216837) ALBUMIN (test code = 4.6 g/dL 3.5-5.0 6991973045) ALK PHOS (test code = 93 U/L 34-122 7717703115) ALTv (test code = 44 U/L 5-35 H 1742-6) AST(SGOT) (test code = 48 U/L 13-40 H 5577709933) eGFR (test code = mL/min/1.73m2 6514638098) TORRES (test code = TORRES) Association of [...] tests). Lab Interpretation Abnormal (test code = 92444-4) [facility]LIPASE2021-11-12 17:13:49 Test Item Value Reference Range Interpretation Comments LIPASE (test code = 6435795819) 266 U/L 0-220 H Lab Interpretation (test code = Abnormal 86858-5) [facility] WITH [id number] 17:03:27 Test Item Value Reference Range Interpretation Comments WBC (test code = See_Comment [Automated 7573-2) message] The sy stem which generated this result transmitted reference range : 4.30 - 11.10 10*3/?L. The reference range was not used to interpret this result as normal/abnormal . RBC (test code = See_Comment [Automated 468-8) message] The sy stem which generated this [...] RDW-SD (test code = 48.4 fL 39.0-49.9 65459-6) RDW-CV (test code = 13.8 % 12.0-15.5 788-0) PLT (test code = See_Comment [Automated 777-3) message] The sy stem which generated this result transmitted reference range : 166 - 358 10*3/ ?L. The reference r becca was not used to interpret this result as normal/abnormal . MPV (test code = 9.1 fL 9.5-12.9 L 18218-0) NRBC/100 WBC (test See_Comment [Automat ed code = 6049205274) message] The system which generated this result transmitted reference range : 0.0 - 10.0 /100 WBCs. The refer ence range was not u sed to interpret th is result as normal/abnormal . NRBC x10^3 (test code <0.01 See_Comment [Auto mated = 1478733785) message] The s ystem which generated this result transmitted reference range : 10*3/?L. The reference range was not used to interpret this result as normal/abnormal . GRAN MAT (NEUT) % 64.8 % (test code = 770-8) IMM GRAN % (test code 0.90 % = 3017050164) LYMPH % (test code = 24.2 % 736-9) MONO % (test code = 8.2 % 5905-5) EOS % (test code = 1.4 % 713-8) BASO % (test code = 0.5 % 706-2) GRAN MAT x10^3(ANC) 5.59 10*3/uL 1.88-7.09 (test code = 7488961896) IMM GRAN x10^3 (test 0.08 10*3/uL 0.00-0.06 H code = 7483685765) LYMPH x10^3 (test code 2.09 10*3/uL 1.32-3.29 = 731-0) MONO x10^3 (test code 0.71 10*3/uL 0.33-0.92 = 742-7) EOS x10^3 (test code = 0.12 10*3/uL 0.03-0.39 711-2) BASO x10^3 (test code 0.04 10*3/uL 0.01-0.07 = 704-7) Lab Interpretation Abnormal (test code = 57454-8) [facility] SpringsBasic metabolic [id number] 07:08:00 Test Item Value Reference Range Interpretation Comments Sodium (test code = 139 meq/L 162-017 0274-2) Potassium (test 4.1 meq/L 3.5-5.1 code = 2823-3) Chloride (test code 107 meq/L 98-107 = 2075-0) CO2 (test code = 25 meq/L 22-29 2027-9) BUN (test code = 13 mg/dL 7-21 3094-0) Creatinine (test 0.97 mg/dL 0.57-1.25 code = 2160-0) Glucose (test code 80 mg/dL 70-105 = 2345-7) Calcium (test code 8.9 mg/dL 8.4-10.2 = 60395-1) EGFR (test code = 56 mL/min/1.[address] [place] [address]-1) NOT ACCURATE CREATININE CLEARANCE IN PREDICTING GLOMERULAR FILTRATION RATE . ESTIMATED GFR I S NOT APPLICABLE FOR DIALYSIS PATIEN TS. MACDONALD (test code = Physics Faculty Member ID - TORRES) TOÑITO Camacho [facility] CenterHepatic function [id number] 07:08:00 Test Item Value Reference Range Interpretation Comments Protein, Total (test 6.9 See_Comment [Autom ated code = 2885-2) message] The system which generated this result transmit lane reference range : 6.0 - 8.3 gm/dL . The reference range was not u sed to interpret th is result as normal/abnormal . Albumin (test code = 3.6 g/dL 3.5-5 82881-3) Total Bilirubin (test 0.3 mg/dL 0.2-1.2 code = 1974-2) Bilirubin, Direct 0.2 mg/dL 0.1-0.5 (test code = 1967-7) Alkaline Phosphatase 56 U/L 40-150 (test code = 6768-6) AST (test code = 37 U/L 5-34 H 1920-8) ALT (test code = 50 U/L 6-55 1742-6) TORRES (test code = TORRES) Physics Faculty Member ID - TOÑITO L Lab Interpretation Abnormal (test code = 83708-5) [facility] [id number] 07:08:00 Test Item Value Reference Range Interpretation Comments Sodium (test code = 139 meq/L 944-900 2264-2) Potassium (test 4.1 meq/L 3.5-5.1 code = 2823-3) Chloride (test code 107 meq/L 98-107 = 2075-0) CO2 (test code = 25 meq/L 22-29 8-9) BUN (test code = 13 mg/dL 7-21 3094-0) Creatinine (test 0.97 mg/dL 0.57-1.25 code = 2160-0) Glucose (test code 80 mg/dL 70-105 = 2345-7) Calcium (test code 8.9 mg/dL 8.4-10.2 = 75419-5) EGFR (test code = 56 mL/min/1.[address] [place] [address]-5) NOT ACCURATE CREATININE CLEARANCE IN PREDICTING GLOMERULAR FILTRATION RATE . ESTIMATED GFR I S NOT APPLICABLE FOR DIALYSIS PATIEN TS. TORRES (test code = Physics Faculty Member ID - TORRES) TOÑITO Camacho [facility] function [id number] 07:08:00 Test Item Value Reference Range Interpretation Comments Protein, Total (test 6.9 See_Comment [Autom ated code = 2885-2) message] The system which generated this result transmit lane reference range : 6.0 - 8.3 gm/dL . The reference range was not u sed to interpret th is result as normal/abnormal . Albumin (test code = 3.6 g/dL 3.5-5 62540-1) Total Bilirubin (test 0.3 mg/dL 0.2-1.2 code = 1974-2) Bilirubin, Direct 0.2 mg/dL 0.1-0.5 (test code = 1967-7) Alkaline Phosphatase 56 U/L 40-150 (test code = 6768-6) AST (test code = 37 U/L 5-34 H 1920-8) ALT (test code = 50 U/L 55 1742-6) TORRES (test code = TORRES) Physics Faculty Member ID - TOÑITO L Lab Interpretation Abnormal (test code = 12674-5) [facility] HospitalBasi metabolic [id number] 07:08:00 Test Item Value Reference Range Interpretation Comments Sodium (test code = 139 meq/L 843-546 9338-2) Potassium (test 4.1 meq/L 3.5-5.1 code = 2823-3) Chloride (test code 107 meq/L 98-107 = 2075-0) CO2 (test code = 25 meq/L 22-29 2027-9) BUN (test code = 13 mg/dL 7-21 3094-0) Creatinine (test 0.97 mg/dL 0.57-1.25 code = 2160-0) Glucose (test code 80 mg/dL 70-105 = 2345-7) Calcium (test code 8.9 mg/dL 8.4-10.2 = 87958-6) EGFR (test code = 56 mL/min/1.[address] [place] [address]-2) NOT ACCURATE CREATININE CLEARANCE IN PREDICTING GLOMERULAR FILTRATION RATE . ESTIMATED GFR I S NOT APPLICABLE FOR DIALYSIS PATIEN TS. TORRES (test code = Physics Faculty Member ID - TORRES) TOÑITO Camacho [facility] function [id number] 07:08:00 Test Item Value Reference Range Interpretation Comments Protein, Total (test 6.9 See_Comment [Autom ated code = 2885-2) message] The system which generated this result transmit lane reference range : 6.0 - 8.3 gm/dL . The reference range was not u sed to interpret th is result as normal/abnormal . Albumin (test code = 3.6 g/dL 3.5-5 62695-3) Total Bilirubin (test 0.3 mg/dL 0.2-1.2 code = 1975-2) Bilirubin, Direct 0.2 mg/dL 0.1-0.5 (test code = 1968-7) Alkaline Phosphatase 56 U/L 40-150 (test code = 6768-6) AST (test code = 37 U/L 5-34 H 1920-8) ALT (test code = 50 U/L 6-55 1742-6) TORRES (test code = TORRES) Physics Faculty Member ID - PIAYA L Lab Interpretation Abnormal (test code = 06200-4) [facility] metabolic [id number] 07:08:00 Test Item Value Reference Range Interpretation Comments Sodium (test code = 139 meq/L 640-708 3356-2) Potassium (test 4.1 meq/L 3.5-5.1 code = 2823-3) Chloride (test code 107 meq/L 98-107 = 2075-0) CO2 (test code = 25 meq/L 22-29 2028-9) BUN (test code = 13 mg/dL 7-21 3094-0) Creatinine (test 0.97 mg/dL 0.57-1.25 code = 2160-0) Glucose (test code 80 mg/dL 70-105 = 2345-7) Calcium (test code 8.9 mg/dL 8.4-10.2 = 05370-1) EGFR (test code = 56 mL/min/1.[address] [place] [address]-7) NOT ACCURATE CREATININE CLEARANCE IN PREDICTING GLOMERULAR FILTRATION RATE . ESTIMATED GFR I S NOT APPLICABLE FOR DIALYSIS PATIEN TSKenrick TORRES (test code = Physics Faculty Member ID - TORRES) TOÑITO Camacho [facility]Hep[facility] function [id number] 07:08:00 Test Item Value Reference Range Interpretation Comments Protein, Total (test 6.9 See_Comment [Autom ated code = 2885-2) message] The system which generated this result transmit lane reference range : 6.0 - 8.3 gm/dL . The reference range was not u sed to interpret th is result as normal/abnormal . Albumin (test code = 3.6 g/dL 3.5-5 80121-8) Total Bilirubin (test 0.3 mg/dL 0.2-1.2 code = 1975-2) Bilirubin, Direct 0.2 mg/dL 0.1-0.5 (test code = 1967-7) Alkaline Phosphatase 56 U/L 40-150 (test code = 6768-6) AST (test code = 37 U/L 5-34 H 1920-8) ALT (test code = 50 U/L 6-55 1742-6) TORRES (test code = TORRES) Physics Faculty Member ID - TOÑITO Camacho Lab Interpretation Abnormal (test code = 92802-5) [facility] METABOLIC [id number] 07:08:00 Test Item Value Reference Range Interpretation [...] S NOT APPLICABLE FOR DIALYSIS PATIEN TS. Physics Faculty Member ID - PIAYA LHEPATIC FUNCTION [id number] 07:08:00 Test Item Value Reference Range Interpretation [...] (test code = 50 U/L 6-55 347) Physics Faculty Member ID - PIJOVANNI LCBC with platelet count + automated [id number] 06:01:00 Test Item Value Reference Range Interpretation Comments WBC (test code = 6690-2) 7.9 See_Comment [A utomated message] The system [employer] generated this result transmitted ref erence range: 3.5 - 10 .5 K/L. The refe rence range was not u sed to interpret this result as normal/abnor mal. RBC (test code = 789-8) 3.22 See_Comment L [Au tomated message] The system [employer] generated this result transmitted ref erence range: 3.93 - 5 .22 M/L. The refe rence range was not u sed to interpret this result as normal/abnor mal. MCHC (test code = 786-4) 31.8 See_Comment L [A utomated message] The system [employer] generated this result transmitted ref erence range: [...] See_Comment [Aut omated message] 777-3) The system [employer] generated this result transmitted ref erence range: 150 - 45 0 K/CU MM. The referen ce range was not u sed to interpret this result as normal/abnor mal. MPV (test code = 8.9 fL 9.4-12.3 L 67684-2) nRBC (test code = 413) 0 See_Comment [Aut omated message] The system [employer] generated this result transmitted ref erence range: [...] See_Comment [Aut omated message] 670) The system [employer] generated this result transmitted ref erence range: 1.56 - 6 .13 K/L. The refe rence range was not u sed to interpret this result as normal/abnor mal. # Lymphs (test code = 2.20 See_Comment [Auto mated message] 414) The system [employer] generated this result transmitted ref erence range: 1.18 - 3 .74 K/L. The refe rence range was not u sed to interpret this result as normal/abnor mal. # Monos (test code = 0.54 See_Comment H [Autom ated message] 415) The system [employer] generated this result transmitted ref erence range: 0.24 - 0 .36 K/L. The refe rence range was not u sed to interpret this result as normal/abnor mal. # Eos (test code = 416) 0.08 See_Comment [Au tomated message] The system [employer] generated this result transmitted ref erence range: 0.04 - 0 .36 K/L. The refe rence range was not u sed to interpret this result as normal/abnor mal. # Baso (test code = 417) 0.03 See_Comment [A utomated message] The system [employer] generated this result transmitted ref erence range: 0.01 - 0 .08 K/L. The refe rence range was not u sed to interpret this result as normal/abnor mal. Immature 0 % 0-1 Granulocytes-Relative (test code = 2801) Lab Interpretation (test Abnormal code = 30957-5) [facility] with platelet count + automated [id number] 06:01:00 Test Item Value Reference Range Interpretation Comments WBC (test code = 6690-2) 7.9 See_Comment [A utomated message] The system [employer] generated this result transmitted ref erence range: 3.5 - 10 .5 K/L. The refe rence range was not u sed to interpret this result as normal/abnor mal. RBC (test code = 789-8) 3.22 See_Comment L [Au tomated message] The system [employer] generated this result transmitted ref erence range: 3.93 - 5 .22 M/L. The refe rence range was not u sed to interpret this result as normal/abnor mal. MCHC (test code = 786-4) 31.8 See_Comment L [A utomated message] The system [employer] generated this result transmitted ref erence range: [...] See_Comment [Aut omated message] 777-3) The system [employer] generated this result transmitted ref erence range: 150 - 45 0 K/CU MM. The referen ce range was not u sed to interpret this result as normal/abnor mal. MPV (test code = 8.9 fL 9.4-12.3 L 28907-3) nRBC (test code = 413) 0 See_Comment [Aut omated message] The system [employer] generated this result transmitted ref erence range: [...] See_Comment [Aut omated message] 670) The system [employer] generated this result transmitted ref erence range: 1.56 - 6 .13 K/L. The refe rence range was not u sed to interpret this result as normal/abnor mal. # Lymphs (test code = 2.20 See_Comment [Auto mated message] 414) The system [employer] generated this result transmitted ref erence range: 1.18 - 3 .74 K/L. The refe rence range was not u sed to interpret this result as normal/abnor mal. # Monos (test code = 0.54 See_Comment H [Autom ated message] 415) The system [employer] generated this result transmitted ref erence range: 0.24 - 0 .36 K/L. The refe rence range was not u sed to interpret this result as normal/abnor mal. # Eos (test code = 416) 0.08 See_Comment [Au tomated message] The system [employer] generated this result transmitted ref erence range: 0.04 - 0 .36 K/L. The refe rence range was not u sed to interpret this result as normal/abnor mal. # Baso (test code = 417) 0.03 See_Comment [A utomated message] The system [employer] generated this result transmitted ref erence range: 0.01 - 0 .08 K/L. The refe rence range was not u sed to interpret this result as normal/abnor mal. Immature 0 % 0-1 Granulocytes-Relative (test code = 2801) Lab Interpretation (test Abnormal code = 45999-0) [facility] with platelet count + automated [id number] 06:01:00 Test Item Value Reference Range Interpretation Comments WBC (test code = 6690-2) 7.9 See_Comment [A utomated message] The system [employer] generated this result transmitted ref erence range: 3.5 - 10 .5 K/L. The refe rence range was not u sed to interpret this result as normal/abnor mal. RBC (test code = 789-8) 3.22 See_Comment L [Au tomated message] The system [employer] generated this result transmitted ref erence range: 3.93 - 5 .22 M/L. The refe rence range was not u sed to interpret this result as normal/abnor mal. MCHC (test code = 786-4) 31.8 See_Comment L [A utomated message] The system [employer] generated this result transmitted ref erence range: [...] See_Comment [Aut omated message] 777-3) The system [employer] generated this result transmitted ref erence range: 150 - 45 0 K/CU MM. The referen ce range was not u sed to interpret this result as normal/abnor mal. MPV (test code = 8.9 fL 9.4-12.3 L 47175-4) nRBC (test code = 413) 0 See_Comment [Aut omated message] The system [employer] generated this result transmitted ref erence range: [...] See_Comment [Aut omated message] 670) The system [employer] generated this result transmitted ref erence range: 1.56 - 6 .13 K/L. The refe rence range was not u sed to interpret this result as normal/abnor mal. # Lymphs (test code = 2.20 See_Comment [Auto mated message] 414) The system [employer] generated this result transmitted ref erence range: 1.18 - 3 .74 K/L. The refe rence range was not u sed to interpret this result as normal/abnor mal. # Monos (test code = 0.54 See_Comment H [Autom ated message] 415) The system [employer] generated this result transmitted ref erence range: 0.24 - 0 .36 K/L. The refe rence range was not u sed to interpret this result as normal/abnor mal. # Eos (test code = 416) 0.08 See_Comment [Au tomated message] The system [employer] generated this result transmitted ref erence range: 0.04 - 0 .36 K/L. The refe rence range was not u sed to interpret this result as normal/abnor mal. # Baso (test code = 417) 0.03 See_Comment [A utomated message] The system [employer] generated this result transmitted ref erence range: 0.01 - 0 .08 K/L. The refe rence range was not u sed to interpret this result as normal/abnor mal. Immature 0 % 0-1 Granulocytes-Relative (test code = 2801) Lab Interpretation (test Abnormal code = 52652-8) [facility] with platelet count + automated [id number] 06:01:00 Test Item Value Reference Range Interpretation Comments WBC (test code = 6690-2) 7.9 See_Comment [A utomated message] The system [employer] generated this result transmitted ref erence range: 3.5 - 10 .5 K/L. The refe rence range was not u sed to interpret this result as normal/abnor mal. RBC (test code = 789-8) 3.22 See_Comment L [Au tomated message] The system [employer] generated this result transmitted ref erence range: 3.93 - 5 .22 M/L. The refe rence range was not u sed to interpret this result as normal/abnor mal. MCHC (test code = 786-4) 31.8 See_Comment L [A utomated message] The system [employer] generated this result transmitted ref erence range: [...] code = 282 See_Comment [Aut omated message] 297-3) The system [employer] generated this result transmitted ref erence range: 150 - 45 0 K/CU MM. The referen ce range was not u sed to interpret this result as normal/abnor mal. MPV (test code = 8.9 fL 9.4-12.3 L 81660-5) nRBC (test code = 413) 0 See_Comment [Aut omated message] The system [employer] generated this result transmitted ref erence range: [...] See_Comment [Aut omated message] 670) The system [employer] generated this result transmitted ref erence range: 1.56 - 6 .13 K/L. The refe rence range was not u sed to interpret this result as normal/abnor mal. # Lymphs (test code = 2.20 See_Comment [Auto mated message] 414) The system [employer] generated this result transmitted ref erence range: 1.18 - 3 .74 K/L. The refe rence range was not u sed to interpret this result as normal/abnor mal. # Monos (test code = 0.54 See_Comment H [Autom ated message] 415) The system [employer] generated this result transmitted ref erence range: 0.24 - 0 .36 K/L. The refe rence range was not u sed to interpret this result as normal/abnor mal. # Eos (test code = 416) 0.08 See_Comment [Au tomated message] The system [employer] generated this result transmitted ref erence range: 0.04 - 0 .36 K/L. The refe rence range was not u sed to interpret this result as normal/abnor mal. # Baso (test code = 417) 0.03 See_Comment [A utomated message] The system [employer] generated this result transmitted ref erence range: 0.01 - 0 .08 K/L. The refe rence range was not u sed to interpret this result as normal/abnor mal. Immature 0 % 0-1 Granulocytes-Relative (test code = 2801) Lab Interpretation (test Abnormal code = 32900-6) [facility] W/PLT COUNT & AUTO [id number] 06:01:00 Test Item Value Reference Range Interpretation [...] (test code = 416) BASOPHILS ABSOLUTE COUNT (ZONIAAKER) 0.03 K/ L 0.01-0.08 (test code = 417) IMMATURE GRANULOCYTES-RELATIVE 0 % 0-1 PERCENT (ZONIAAKER) (test code = 2801) ECG 12 [id number] 06:47:19Interface, External Ris In 05/05/2021 6:47 AM CDTVentricular Rate 91 BPMAtrial Rate 91 BPMP-R Interval 126 msQRS Duration 78 msQ-T Interval 352 msQTC Calculation(Bazett) 432 msP [place] 44 degreesR Axis28 degreesT [place] 39 degreesNormal sinus rhythmNormal ECGNo previous ECGs availableConfirmed by MD BELLAMY JOSEPH P ([id number]) on 05/05/2021 6:47:15 [facility] [id number] 06:47:19Interface, External Ris In 05/05/2021 6:47 AM CDTVentricular Rate 91 BPMAtrial Rate 91 BPMP-R Interval 126 msQRS Duration 78 msQ-T Interval 352 msQTC Calculation(Bazett) 432 msP [place] 44 degreesR Axis28 degreesT [place] 39 degreesNormal sinus rhythmNormal ECGNo previous ECGs availableConfirmed by MD BELLAMY JOSEPH P ([id number]) on 05/05/2021 6:47:15 [facility] [id number] 06:47:19Interface, External Ris In - 05/05/2021 6:47 AM CDTVentricular Rate 91 BPMAtrial Rate 91 BPMP-R Interval 126 msQRS Duration 78 msQ-T Interval 352 msQTC Calculation(Bazett) 432 msP [place] 44 degreesR Axis28 degreesT [place] 39 degreesNormal sinus rhythmNormal ECGNo previous ECGs availableConfirmed by MD BELLAMY JOSEPH P ([id number]) on 05/05/2021 6:47:15 [facility] ECG 12 [id number] 06:47:19Interface, External Ris In 05/05/2021 6:47 AM CDTVentricular Rate 91 BPMAtrial Rate 91 BPMP-R Interval 126 msQRS Duration 78 msQ-T Interval 352 msQTC Calculation(Bazett) 432 msP [place] 44 degreesR Axis28 degreesT [place] 39 degreesNormal sinus rhythmNormal ECGNo previous ECGs availableConfirmed by MD MIA, TEMI Mcnulty ([id number]) on 05/05/2021 6:47:15 [facility], [id number] 06:17:00 Test Item Value Reference Range Interpretation Comments ABO Grouping (test code = 2588) O Rh Factor (test code = 2589) POS [facility], [id number] 06:17:00 Test Item Value Reference Range Interpretation Comments ABO Grouping (test code = 2588) O Rh Factor (test code = 2589) [facility], [id number] 06:17:00 Test Item Value Reference Range Interpretation Comments ABO Grouping (test code = 2588) O Rh Factor (test code = 2589) [facility], [id number] 06:17:00 Test Item Value Reference Range Interpretation Comments ABO Grouping (test code = 2588) O Rh Factor (test code = 2589) [facility] 2021-05-05 05:01:00 Test Item Value Reference Range Interpretation Comments ABO/RH AUTOMATED (BEAKER) (test O POSITIVE code = 2260) Ab Scrn (test code = 890-4) NEGATIVE [facility] 2021-05-05 05:01:00 Test Item Value Reference Range Interpretation Comments ABO/RH AUTOMATED (BEAKER) (test O POSITIVE code = 2260) Ab Scrn (test code = 890-4) [facility]IVE [facility] 2021-05-05 05:01:00 Test Item Value Reference Range Interpretation Comments ABO/RH AUTOMATED (BEAKER) (test O POSITIVE code = 2260) Ab Scrn (test code = 890-4) [facility] 2021-05-05 05:01:00 Test Item Value Reference Range Interpretation Comments ABO/RH AUTOMATED (BEAKER) (test O POSITIVE code = 2260) Ab Scrn (test code = 890-4) [facility]IVE [facility][id number] 04:35:00 Test Item Value Reference Interpretation Comments [...] valves. Lab Interpretation Normal (test code = 57952-4) [facility][id number] 04:35:00 Test Item Value Reference Interpretation Comments [...] valves. Lab Interpretation Normal (test code = 60884-1) [facility][id number] 04:35:00 Test Item Value Reference Interpretation Comments [...] valves. Lab Interpretation Normal (test code = 65624-8) [facility][id number] 04:35:00 Test Item Value Reference Interpretation Comments [...] to interpret this result as normal/abnormal . TORERS (test code = RECOMMENDED TORRES) COUMADIN/WARFARIN INR THERAPY RANGESSTANDARD DOSE: 2.0 - 3.0 Includes: PROPHYLAXIS for venous thrombosis, systemic embolization; TREATMENT for venous thrombosis and/or pulmonary embolus.HIGH RISK: Target INR is 2.5-3.5 for patients with mechanical heart valves. Lab Interpretation Normal (test code = 94292-9) [facility]/[id number] 04:35:00 Test Item Value Reference Range Interpretation Comments PROTIME (BEAKER) 13.7 seconds 11.9-14.2 (test code = 759) INR (BEAKER) (test 1.07 See_Comment [Automat ed message] code = 370) The system [employer] generated this result transmitted ref erence range: <=5.90. The reference range was not used to int erpret this result as normal/abnormal . RECOMMENDED COUMADIN/WARFARIN INR THERAPY RANGESSTANDARD DOSE: 2.0 - 3.0 Includes: PROPHYLAXIS for venous thrombosis, systemic embolization; TREATMENT for venous thrombosis and/or pulmonary embolus.HIGH RISK: Target INR is 2.5-3.5 for patients with mechanical heart valves.High Sensitivity Troponin [id number] 01:56:00 Test Item Value Reference Range Interpretation Comments Troponin I HS (test <4 See_Comment [Automa lane code = 49690-1) message] The system which generated this result transmitted reference range : <=17 pg/ml. The reference range was not used to interpret this result as normal/abnormal . TORRES (test code = Physics Faculty Member ID - TORRES) DBThe ACCOUNTANT CERTIFIED PUBLIC STAT High Sensitivity Troponin-I results should be used in conjunction with other diagnostic information such as ECG, clinical observations and information, and patient symptoms to aid in the diagnosis of [place]. Lab Interpretation Normal (test code = 13535-8) [facility] Trop[facility] [id number] 01:56:00 Test Item Value Reference Range Interpretation Comments Troponin I HS (test <4 See_Comment [Automa lane code = 90979-5) message] The system which generated this result transmitted reference range : <=17 pg/ml. The reference range was not used to interpret this result as normal/abnormal . TORRES (test code = Physics Faculty Member ID - TORRES) DBThe ACCOUNTANT CERTIFIED PUBLIC STAT High Sensitivity Troponin-I results should be used in conjunction with other diagnostic information such as ECG, clinical observations and information, and patient symptoms to aid in the diagnosis of [place]. Lab Interpretation Normal (test code = 69689-2) [facility] Troponin [id number] 01:56:00 Test Item Value Reference Range Interpretation Comments Troponin I HS (test <4 See_Comment [Automa lane code = 27286-9) message] The system which generated this result transmitted reference range : <=17 pg/ml. The reference range was not used to interpret this result as normal/abnormal . TORRES (test code = Physics Faculty Member ID - TORRES) DBThe ACCOUNTANT CERTIFIED PUBLIC STAT High Sensitivity Troponin-I results should be used in conjunction with other diagnostic information such as ECG, clinical observations and information, and patient symptoms to aid in the diagnosis of [place]. Lab Interpretation Normal (test code = 45420-9) [facility] Troponin [id number] 01:56:00 Test Item Value Reference Range Interpretation Comments Troponin I HS (test <4 See_Comment [Automa lane code = 63150-5) message] The system which generated this result transmitted reference range : <=17 pg/ml. The reference range was not used to interpret this result as normal/abnormal . TORRES (test code = Physics Faculty Member ID - TORRES) DBThe ACCOUNTANT CERTIFIED PUBLIC STAT High Sensitivity Troponin-I results should be used in conjunction with other diagnostic information such as ECG, clinical observations and information, and patient symptoms to aid in the diagnosis of [place]. Lab Interpretation Normal (test code = 81975-2) [facility] TROPONIN [id number] 01:56:00 Test Item Value Reference Range Interpretation Comments HIGH SENSITIVITY < pg/ml See_Comment [Automated message] TROPONIN I (test code = The system which 8029043) generated this result transmitted ref erence range: <=17. Th e reference range was not used to interpr et this result as normal/abnormal . Physics Faculty Member ID - DBThe ACCOUNTANT CERTIFIED PUBLIC STAT High Sensitivity Troponin-I results should be used in conjunctionwith other diagnostic information such as ECG, clinical observations and information, and patient symptoms to aid in the diagnosis of [place].Ketones, [id number] 01:40:00 Test Item Value Reference Range Interpretation Comments Ketones, Blood (test code = 1103) 0.4 mmol/L <0.4 H Lab Interpretation (test code = Abnormal 71555-7) [facility], [id number] 01:40:00 Test Item Value Reference Range Interpretation Comments Ketones, Blood (test code = 1103) 0.4 mmol/L <0.4 H Lab Interpretation (test code = Abnormal 19704-5) [facility] [id number] 01:40:00 Test Item Value Reference Range Interpretation Comments Ketones, Blood (test code = 1103) 0.4 mmol/L <0.4 H Lab Interpretation (test code = Abnormal 80183-3) [facility] [id number] 01:40:00 Test Item Value Reference Range Interpretation Comments Ketones, Blood (test code = 1103) 0.4 mmol/L <0.4 H Lab Interpretation (test code = Abnormal 46930-5) [facility] HospitalGIB[facility]AN, [id number] 01:40:00 Test Item Value Reference Range Interpretation Comments KETONES, BLOOD (BEAKER) (test code 0.4 mmol/L <0.4 H = 1103) SARS-CoV2/RT-PCR (Asymptomatic ONLY)2021-05-05 01:30:00 Test Item Value Reference Interpretation Comments Range SARS-COV2/RT-PCR Negative Negative The SARS-Co V-2 (test code = target nucleic 69584-1) acids are not detected in thi s [...] revoked sooner. Fact Sheet for Healthcare Providers: https://www.[employer]/Documents/Xp ert%20Xpress%20SAR S%20CoV-2/Fact%20S heets/302-0652%20S ARS-COV-2%20HEALTH CARE%20PROVIDERS%2 0FACT%20SHEET.pdf Fact Sheet for Healthcare Patients: https://www.[employer]/Documents/Xp ert%20Xpress%20SAR S%20CoV-2/Fact%20S heets/302-3801%20S ARS-COV-2%20PATIEN T%20FACT%20SHEET.p df Lab Interpretation Normal (test code = 75001-3) [facility]2021-05-05 01:30:00 Test Item Value Reference Interpretation Comments Range SARS-COV2/RT-PCR Negative Negative The SARS-Co V-2 (test code = target nucleic 30833-7) acids are not detected in thi s [...] revoked sooner. Fact Sheet for Healthcare Providers: https://www.[employer]/Documents/Xp ert%20Xpress%20SAR S%20CoV-2/Fact%20S heets/302-3802%20S ARS-COV-2%20HEALTH CARE%20PROVIDERS%2 0FACT%20SHEET.pdf Fact Sheet for Healthcare Patients: https://www.[employer]/Documents/Xp ert%20Xpress%20SAR S%20CoV-2/Fact%20S heets/302-3801%20S ARS-COV-2%20PATIEN T%20FACT%20SHEET.p df Lab Interpretation Normal (test code = 68636-5) [facility]Asymptomatic ONLY)2021-05-05 01:30:00 Test Item Value Reference Interpretation Comments Range SARS-COV2/RT-PCR Negative Negative The SARS-Co V-2 (test code = target nucleic 76834-4) acids are not detected in thi s [...] revoked sooner. Fact Sheet for Healthcare Providers: https://www.[employer]/Documents/Xp ert%20Xpress%20SAR S%20CoV-2/Fact%20S heets/3023802%20S ARS-COV-2%20HEALTH CARE%20PROVIDERS%2 0FACT%20SHEET.pdf Fact Sheet for Healthcare Patients: https://www.[employer]/Documents/Xp ert%20Xpress%20SAR S%20CoV-2/Fact%20S heets/3023801%20S ARS-COV-2%20PATIEN T%20FACT%20SHEET.p df Lab Interpretation Normal (test code = 80934-7) [facility]As[facility]omatic ONLY[facility]2021-05-05 01:30:00 Test Item Value Reference Interpretation Comments Range SARS-COV2/RT-PCR Negative Negative The SARS-Co V-2 (test code = target nucleic 46294-5) acids are not detected in thi s [...] revoked sooner. Fact Sheet for Healthcare Providers: https://www.[employer]/Documents/Xp ert%20Xpress%20SAR S%20CoV-2/Fact%20S heets/302-3802%20S ARS-COV-2%20HEALTH CARE%20PROVIDERS%2 0FACT%20SHEET.pdf Fact Sheet for Healthcare Patients: https://www.[employer]/Documents/Xp ert%20Xpress%20SAR S%20CoV-2/Fact%20S heets/302-3801%20S ARS-COV-2%20PATIEN T%20FACT%20SHEET.p df Lab Interpretation Normal (test code = 26566-9) [facility])2021-05-05 01:30:00 Test Item Value Reference Range Interpretation Comments SARS-COV2/RT-PCR Negative Negative The SARS-Co V-2 target (test code = nucleic acids a re not 2878898) detected in thi s specimen. Negative result [...] revoked sooner. Fact Sheet for Healthcare Providers: https://www.[employer]/Documents/Xpert%20Xpress%20SARS%20CoV-2/Fact%20Sheets/3023802%85WDPG-UYT-2%20 HEALTHCARE%20PROVIDERS%20FACT%20SHEET.pdf Fact Sheet for Healthcare Patients: https://www.[employer]/Documents/Xpert%20Xp ress%20SARS%20CoV-2/Fact%20Sheets/3023801%85SGEJ-BTO-8%20PATIENT%20FACT%20SHEET .pdfBlood gas, [id number] 01:22:00 Test Item Value Reference Range Interpretation [...] Niranjan (test code = 21 mmol/L 21-29 72294-6) Base Excess, Niranjan (test -4.5 mmol/L -2-3 L code = 1927-3) Patient Temperature 37.0 (test code = 8310-5) FIO2 (test code = 1819) 21 Lab Interpretation Abnormal (test code = 27112-9) [facility] gas, [id number] 01:22:00 Test Item Value Reference Range Interpretation [...] Niranjan (test code = 21 mmol/L 21-29 31700-8) Base Excess, Niranjan (test -4.5 mmol/L -2-3 L code = 1927-3) Patient Temperature 37.0 (test code = 8310-5) FIO2 (test code = 1819) 21 Lab Interpretation Abnormal (test code = 44151-3) [facility] gas, [id number] 01:22:00 Test Item Value Reference Range Interpretation [...] Niranjan (test code = 21 mmol/L 21-29 63787-6) Base Excess, Niranjan (test -4.5 mmol/L -2-3 L code = 1927-3) Patient Temperature 37.0 (test code = 8310-5) FIO2 (test code = 1819) 21 Lab Interpretation Abnormal (test code = 40592-8) [facility] [id number] 01:22:00 Test Item Value Reference Range Interpretation [...] Niranjan (test code = 21 mmol/L 21-29 91447-5) Base Excess, Niranjan (test -4.5 mmol/L -2-3 L code = 1927-3) Patient Temperature 37.0 (test code = 8310-5) FIO2 (test code = 1819) 21 Lab Interpretation Abnormal (test code = 91746-7) [facility], [id number] 01:22:00 Test Item Value Reference Range Interpretation [...] (BEAKER) (test code = 1819) 21.0 ECG/EKG [id number] 23:15:17Cherie Faustin MD 05/05/2021 2:11 AMECG/EKG Interpretation Date/Time: 05/04/2021 11:26 PMPerformed by: Cherie Faustin MDAuthorized by: Cherie Faustin MD The ECG was interpreted by ED physician. The ECG is interpreted as sinus rhythm. Rate is normal rate. Heart rate is 91 BPM.ST segments normal.T-wave inversion in lead(s) V1 and V2. Clinical Impression: normal ECGCH[facility]ECG/E[facility] Interpretation 2021-05-04 23:15:17Cherie Faustin MD 05/05/2021 2:11 AMECG/EKG Interpretation Date/Time: 05/04/2021 11:26 PMPerformed by: Cherie Faustin MDAuthorized by: Cherie Faustin MD The ECG was interpreted by ED physician. The ECG is interpreted as sinus rhythm. Rate is normal rate. Heart rate is 91 BPM.ST segments normal.T-wave inversion in lead(s) V1 and V2. Clinical Impression: normal ECGCH[facility] Capscrkjghxmdb1720-90-85 23:15:17 Cherie Faustin MD 05/05/2021 2:11 AMECG/EKG Interpretation Date/Time: 05/04/2021 11:26 PMPerformed by: Cherie Faustin MDAuthorized by: Cherie Faustin MD The ECG was interpreted by ED physician. The ECG is interpreted as sinus rhythm. Rate is normal rate. Heart rate is 91 BPM.ST segments normal.T- wave inversion in lead(s) V1 and V2. Clinical Impression: normal ECGOrange County [facility] HospitalECG/EKG Ckkpxirwgytyfd6452-53-25 23:15:17Cherie Faustin MD 05/05/2021 2:11 AMECG/EKG Interpretation Date/Time: 05/04/2021 11:26 PMPerformed b y: Cherie Faustin MDAuthorized by: Cherie Faustin MD The ECG was interpreted by ED physician. The ECG is interpreted as sinus rhythm. Rate is normal rate. Heart rate is 91 BPM.ST segments normal.T-wave inversion in lead(s) V1 and V2. Clinical Impression: normal ECGOrange County Community HospitalHEPATIC FUNCTION [id number] 22:01:00 Test Item Value Reference Range Interpretation [...] Specimen moderately (test code = 347) hemolyzed Physics [employer] 21:53:00 Test Item Value Reference Range Interpretation Comments Amylase (test code = 143 U/L 25-125 H Specime n 1798-8) markedly hemolyzed TORRES (test code = TORRES) Physics Faculty Member ID - DB Lab Interpretation Abnormal (test code = 44858-0) [facility] 21:53:00 Test Item Value Reference Range Interpretation Comments Lipase (test code = 3040-3) 97 U/L 8-78 H TORRES (test code = TORRES) Physics Faculty Member ID - DB Lab Interpretation (test Abnormal code = 28961-6) [facility]2021-[facility] 21:53:00 Test Item Value Reference Range Interpretation Comments Amylase (test code = 143 U/L 25-125 H Specime n 1798-8) markedly hemolyzed TORRES (test code = TORRES) Physics Faculty Member ID - DB Lab Interpretation Abnormal (test code = 76432-1) [facility] 21:53:00 Test Item Value Reference Range Interpretation Comments Lipase (test code = 3040-3) 97 U/L 8-78 H TORRES (test code = TORRES) Physics Faculty Member ID - DB Lab Interpretation (test Abnormal code = 30806-4) [facility] 21:53:00 Test Item Value Reference Range Interpretation Comments Amylase (test code = 143 U/L 25-125 H Specime n 1798-8) markedly hemolyzed TORRES (test code = TORRES) Physics Faculty Member ID - DB Lab Interpretation Abnormal (test code = 48900-1) [facility] 21:53:00 Test Item Value Reference Range Interpretation Comments Lipase (test code = 3040-3) 97 U/L 8-78 H TORRES (test code = TORRES) Physics Faculty Member ID - DB Lab Interpretation (test Abnormal code = 91059-8) [facility] 21:53:00 Test Item Value Reference Range Interpretation Comments Amylase (test code = 143 U/L 25-125 H Specime n 1798-8) markedly hemolyzed TORRES (test code = TORRES) Physics Faculty Member ID - DB Lab Interpretation Abnormal (test code = 95329-7) [facility] 21:53:00 Test Item Value Reference Range Interpretation Comments Lipase (test code = 3040-3) 97 U/L 8-78 H TORRES (test code = TORRES) Physics Faculty Member ID - DB Lab Interpretation (test Abnormal code = 28586-3) [facility] HospitalBASIC METABOLIC [id number] 21:53:00 Test Item Value Reference Range Interpretation [...] S NOT APPLICABLE FOR DIALYSIS PATIEN TS. [employer] 21:53:00 Test Item Value Reference Range Interpretation Comments AMYLASE (BEAKER) (test 143 U/L 25-125 H Speci men markedly code = 349) hemolyzed [employer] 21:53:00 Test Item Value Reference Range Interpretation Comments LIPASE (BEAKER) (test code = 749) 97 U/L 8-78 H Physics Faculty Member ID - DBCBC W/PLT COUNT & AUTO [id number] 19:51:00 Test Item Value Reference Range Interpretation [...] PERCENT (BEAKER) (test code = 2801) POC-Glucose [id number] 08:41:00 Test Item Value Reference Range Interpretation Comments POC-Glucose Meter (test 104 mg/dL 70-110 : TE STED AT [facility] code = 1538) [address] [facility] [place], [address]: Physics Faculty Member/Techni aldo ID = [id number] for HUSSEIN LEMON Lab Interpretation (test Normal code = 51652-2) [facility] HospitalP[facility]-Glucose [id number] 08:41:00 Test Item Value Reference Range Interpretation Comments POC-Glucose Meter (test 104 mg/dL 70-110 : TE STED AT [facility] code = 1538) [address] [facility], [address] 30: Physics Faculty Member/Techni aldo ID = [id number] for HUSSEIN LEMON Lab Interpretation (test Normal code = 40156-3) [facility]-Glucose [id number] 08:41:00 Test Item Value Reference Range Interpretation Comments POC-Glucose Meter (test 104 mg/dL 70-110 : TE STED AT [facility] code = 1538) [address] [facility], 770 30: Physics Faculty Member/Techni aldo ID = [id number] for HUSSEIN LEMON Lab Interpretation (test Normal code = 34954-4) [facility]-Glucose [id number] 08:41:00 Test Item Value Reference Range Interpretation Comments POC-Glucose Meter (test 104 mg/dL 70-110 : TE STED AT [facility] code = 1538) [address] [facility], [address]70 30: Physics Faculty Member/Techni aldo ID = [id number] for HUSSEIN LEMON Lab Interpretation (test Normal code = 84300-3) [facility]-GLUCOSE [id number] 08:41:00 Test Item Value Reference Range Interpretation Comments POC-GLUCOSE METER 104 mg/dL 70-110 : TESTED A T [facility] 6720 (BEAKER) (test code = [place] [facility], 1538) [address]: Physics Faculty Member/Techni aldo ID = [id number] for HUSSEIN DAVID Comprehensive metabolic [id number] 06:49:00 Test Item Value Reference Range Interpretation Comments Protein, Total (test 6.8 See_Comment [Autom ated code = 2885-2) message] The system which generated this result transmit lane reference range : 6.0 - 8.3 gm/dL . The reference range was not u sed to interpret th is result as normal/abnormal . Albumin (test code = 3.5 g/dL 3.5-5 68663-7) Alkaline Phosphatase 44 U/L 40-150 (test code = 6768-6) Total Bilirubin (test 0.3 mg/dL 0.2-1.2 code = 1975-2) Sodium (test code = 139 meq/L 009-024 1227-2) Potassium (test code 3.8 meq/L 3.5-5.1 = 2823-3) Chloride (test code = 104 meq/L 98-107 2074-0) CO2 (test code = 27 meq/L -2028-05) BUN (test code = 12 mg/dL 04-01-0) Creatinine (test code 1.05 mg/dL 0.57-1.25 = 2160-0) Glucose (test code = 79 mg/dL 70-105 2345-7) Calcium (test code = 8.4 mg/dL 8.4-10.2 92575-6) AST (test code = 49 U/L 5-34 H 192-8) ALT (test code = 41 U/L 6-55 1742-6) EGFR (test code = 52 mL/min/1.[address] [place] [address]-3) NOT ACCURATE CREATININE CLEARANCE IN PREDICTING GLOMERULAR FILTRATION RATE . ESTIMATED GFR I S NOT APPLICABLE FOR DIALYSIS PATIEN TSKenrick TORRES (test code = TORRES) Physics Faculty Member ID - HUMBLE M Lab Interpretation Abnormal (test code = 63408-3) [facility] HospitalComprehensive metabolic [id number] 06:49:00 Test Item Value Reference Range Interpretation Comments Protein, Total (test 6.8 See_Comment [Autom ated code = 2885-2) message] The system which generated this result transmit lane reference range : 6.0 - 8.3 gm/dL . The reference range was not u sed to interpret th is result as normal/abnormal . Albumin (test code = 3.5 g/dL 3.5-5 77931-0) Alkaline Phosphatase 44 U/L 40-150 (test code = 6768-6) Total Bilirubin (test 0.3 mg/dL 0.2-1.2 code = 1974-2) Sodium (test code = 139 meq/L 562-785 1612-2) Potassium (test code 3.8 meq/L 3.5-5.1 = 2823-3) Chloride (test code = 104 meq/L 98-107 2074-0) CO2 (test code = 27 meq/L -2028-05) BUN (test code = 12 mg/dL 04-01 3094-0) Creatinine (test code 1.05 mg/dL 0.57-1.25 = 2160-0) Glucose (test code = 79 mg/dL 70-105 2345-7) Calcium (test code = 8.4 mg/dL 8.4-10.2 06397-1) AST (test code = 49 U/L 5-34 H 1920-8) ALT (test code = 41 U/L -55 1742-6) EGFR (test code = 52 mL/min/1.[address] [place] [address]-4) NOT ACCURATE CREATININE CLEARANCE IN PREDICTING GLOMERULAR FILTRATION RATE . ESTIMATED GFR I S NOT APPLICABLE FOR DIALYSIS PATIEN TS. MACDONALD (test code = TORRES) Physics Faculty Member ID - HUMBLE M Lab Interpretation Abnormal (test code = 39099-4) [facility]Com[facility] metabolic [id number] 06:49:00 Test Item Value Reference Range Interpretation Comments Protein, Total (test 6.8 See_Comment [Autom ated code = 2885-2) message] The system which generated this result transmit lane reference range : 6.0 - 8.3 gm/dL . The reference range was not u sed to interpret th is result as normal/abnormal . Albumin (test code = 3.5 g/dL 3.5-5 25369-5) Alkaline Phosphatase 44 U/L 40-150 (test code = 6768-6) Total Bilirubin (test 0.3 mg/dL 0.2-1.2 code = 1974-2) Sodium (test code = 139 meq/L 802-854 3284-2) Potassium (test code 3.8 meq/L 3.5-5.1 = 2823-3) Chloride (test code = 104 meq/L 98-107 5-0) CO2 (test code = 27 meq/L 22-29 2027-9) BUN (test code = 12 mg/dL 7-21 3094-0) Creatinine (test code 1.05 mg/dL 0.57-1.25 = 2160-0) Glucose (test code = 79 mg/dL 70-105 2345-7) Calcium (test code = 8.4 mg/dL 8.4-10.2 92059-7) AST (test code = 49 U/L 5-34 H 1920-8) ALT (test code = 41 U/L -55 2-6) EGFR (test code = 52 mL/min/1.[address] [place] [address]-9) NOT ACCURATE CREATININE CLEARANCE IN PREDICTING GLOMERULAR FILTRATION RATE . ESTIMATED GFR I S NOT APPLICABLE FOR DIALYSIS PATIEN TSKenrick TORRES (test code = TORRES) Physics Faculty Member ID - HUMBLE M Lab Interpretation Abnormal (test code = 63741-9) [facility]Com[facility] [id number] 06:49:00 Test Item Value Reference Range Interpretation Comments Protein, Total (test 6.8 See_Comment [Autom ated code = 2885-2) message] The system which generated this result transmit lane reference range : 6.0 - 8.3 gm/dL . The reference range was not u sed to interpret th is result as normal/abnormal . Albumin (test code = 3.5 g/dL 3.5-5 15729-7) Alkaline Phosphatase 44 U/L 40-150 (test code = 6768-6) Total Bilirubin (test 0.3 mg/dL 0.2-1.2 code = 1974-2) Sodium (test code = 139 meq/L 989-846 9548-2) Potassium (test code 3.8 meq/L 3.5-5.1 = 2823-3) Chloride (test code = 104 meq/L 98-107 2075-0) CO2 (test code = 27 meq/L 22-29 8-9) BUN (test code = 12 mg/dL 7-21 3094-0) Creatinine (test code 1.05 mg/dL 0.57-1.25 = 2160-0) Glucose (test code = 79 mg/dL 70-105 2345-7) Calcium (test code = 8.4 mg/dL 8.4-10.2 85844-9) AST (test code = 49 U/L 5-34 H 1920-8) ALT (test code = 41 U/L 6-55 1742-6) EGFR (test code = 52 mL/min/1.[address] [place] [address]-6) NOT ACCURATE CREATININE CLEARANCE IN PREDICTING GLOMERULAR FILTRATION RATE . ESTIMATED GFR I S NOT APPLICABLE FOR DIALYSIS PATIEN TSKenrick TORRES (test code = TORRES) Physics Faculty Member ID - HUMBLE M Lab Interpretation Abnormal (test code = 63789-7) [facility] HospitalCOMPREHENSIVE METABOLIC [id number] 06:49:00 Test Item Value Reference Range Interpretation [...] S NOT APPLICABLE FOR DIALYSIS PATIEN TS. Physics Faculty Member ID - HUMBLE MPOCT-GLUCOSE [id number] 16:54:00 Test Item Value Reference Range Interpretation Comments POC-GLUCOSE METER 171 mg/dL 70-110 H : TESTED A T [facility] 6720 (BEAKER) (test code = [place], 1538) [address]: Physics Faculty Member/Techni aldo ID = [id number] for ALBINO GONZALEZ Hemoglobin [id number] 15:22:00 Test Item Value Reference Range Interpretation Comments Hemoglobin A1C (test code = 4548-4) 6.2 % 4.3-6.1 H Lab Interpretation (test code = Abnormal 24102-8) [facility] HospitalH[facility] [id number] 15:22:00 Test Item Value Reference Range Interpretation Comments Hemoglobin A1C (test code = 4548-4) 6.2 % 4.3-6.1 H Lab Interpretation (test code = Abnormal 99892-2) [facility] HospitalH[facility] [id number] 15:22:00 Test Item Value Reference Range Interpretation Comments Hemoglobin A1C (test code = 4548-4) 6.2 % 4.3-6.1 H Lab Interpretation (test code = Abnormal 37423-2) [facility] HospitalHem[facility] [id number] 15:22:00 Test Item Value Reference Range Interpretation Comments Hemoglobin A1C (test code = 4548-4) 6.2 % 4.3-6.1 H Lab Interpretation (test code = Abnormal 89898-6) [facility] HospitalHEMOGLOBIN [id number] 15:22:00 Test Item Value Reference Range Interpretation Comments HEMOGLOBIN A1C (BEAKER) (test code = 6.2 % 4.3-6.1 H 368) POCT-GLUCOSE [id number] 12:56:00 Test Item Value Reference Range Interpretation Comments POC-GLUCOSE METER 93 mg/dL 70-110 : Notified RN/MD: TESTED (BEAKER) (test code = AT [facility] [address] 1538) [facility], [facility] 30: Physics Faculty Member/Techni aldo ID = [id number] for [facility] HospitalArely [place], [id number] 12:02:00Reason for exam:->ERCP tomorrow [facility] : 1950 Sex: FFluoroscopic unit utilized for a procedure performed in the OR. No interpretation was requested. Refer to theoperative report for findings. Refer to PACS for patient radiation dose information.[facility] Endoscopic Retrograde Ksgzvnbrfylzotytsavrxecw0439-18-13 12:02:00Interface, External Ris In 03/10/2021 12:18 PM CDTFluoroscopic unit utilized for a procedure performed in the OR. No interpretation was requested. Refer to the operative report for findings. Refer toPACS for patient radiation dose information.[facility] Endoscopic Retrograde Vwpydxnlcjlutdytnlxbahvh0411-06-70 12:02:00Interface, External Ris In 03/10/2021 12:18 PM CDTFluoroscopic unit utilized for a procedure performed in the OR. No interpretation was requested. Refer to the operative report for findings. Refer toPACS for patient radiation dose information.[facility] Endoscopic Retrograde Rbaumsytexuilxdyfcwknkry9266-35-41 12:02:00Interface, External Ris In 03/10/2021 12:18 PM CDTFluoroscopic unit utilized for a procedure performed in the OR. No interpretation was requested. Refer to the operative report for findings. Refer toPACS for patient radiation dose information.[facility] Endoscopic Retrograde Rtcvvgndzgnlugdxmikoeswq0053-14-08 12:02:00Interface, External Ris In 03/10/2021 12:18 PM CDTFluoroscopic unit utilized for a procedure performed in the OR. No interpretation was requested. Refer to the operative report for findings. Refer toPACS for patient radiation dose information.[facility] HospitalPOCT-GLUCOSE [id number] 09:27:00 Test Item Value Reference Range Interpretation Comments POC-GLUCOSE METER 74 mg/dL 70-110 : TESTED A T [facility] 6720 ([employer]) (test code = [place], 1538) [address]: Physics Faculty Member/Techni aldo ID = [id number] for ALBINO ROSS COMPREHENSIVE METABOLIC [id number] 05:49:00 Test Item Value Reference Range Interpretation [...] S NOT APPLICABLE FOR DIALYSIS PATIEN TS. Physics Faculty Member ID - HUMBLE [facility] (Hemogram only)2021-03-10 05:10:00 Test Item Value Reference Range Interpretation Comments WBC (test code = 6690-2) 9.1 See_Comment [A utomated message] The system [employer] generated this result transmitted ref erence range: 3.5 - 10 .5 K/L. The refe rence range was not u sed to interpret this result as normal/abnor mal. RBC (test code = 789-8) 3.57 See_Comment L [Au tomated message] The system [employer] generated this result transmitted ref erence range: 3.93 - 5 .22 M/L. The refe rence range was not u sed to interpret this result as normal/abnor mal. MCHC (test code = 786-4) 30.9 See_Comment L [A utomated message] The system [employer] generated this result transmitted ref erence range: [...] See_Comment [Aut omated message] 777-3) The system [employer] generated this result transmitted ref erence range: 150 - 45 0 K/CU MM. The referen ce range was not u sed to interpret this result as normal/abnor mal. MPV (test code = 9.3 fL 9.4-12.3 L 90193-6) nRBC (test code = 413) 0 See_Comment [Aut omated message] The system [employer] generated this result transmitted ref erence range: 0 - 0 /1 00 WBC. The refere nce range was not u sed to interpret this result as normal/abnor mal. Lab Interpretation (test Abnormal code = 95769-9) [facility] (Hemogram only)2021-03-10 05:10:00 Test Item Value Reference Range Interpretation Comments WBC (test code = 6690-2) 9.1 See_Comment [A utomated message] The system [employer] generated this result transmitted ref erence range: 3.5 - 10 .5 K/L. The refe rence range was not u sed to interpret this result as normal/abnor mal. RBC (test code = 789-8) 3.57 See_Comment L [Au tomated message] The system [employer] generated this result transmitted ref erence range: 3.93 - 5 .22 M/L. The refe rence range was not u sed to interpret this result as normal/abnor mal. MCHC (test code = 786-4) 30.9 See_Comment L [A utomated message] The system [employer] generated this result transmitted ref erence range: [...] See_Comment [Aut omated message] 777-3) The system [employer] generated this result transmitted ref erence range: 150 - 45 0 K/CU MM. The referen ce range was not u sed to interpret this result as normal/abnor mal. MPV (test code = 9.3 fL 9.4-12.3 L 71021-9) nRBC (test code = 413) 0 See_Comment [Aut omated message] The system [employer] generated this result transmitted ref erence range: 0 - 0 /1 00 WBC. The refere nce range was not u sed to interpret this result as normal/abnor mal. Lab Interpretation (test Abnormal code = 89298-8) [facility] (Hemogram only)2021-03-10 05:10:00 Test Item Value Reference Range Interpretation Comments WBC (test code = 6690-2) 9.1 See_Comment [A utomated message] The system [employer] generated this result transmitted ref erence range: 3.5 - 10 .5 K/L. The refe rence range was not u sed to interpret this result as normal/abnor mal. RBC (test code = 789-8) 3.57 See_Comment L [Au tomated message] The system [employer] generated this result transmitted ref erence range: 3.93 - 5 .22 M/L. The refe rence range was not u sed to interpret this result as normal/abnor mal. MCHC (test code = 786-4) 30.9 See_Comment L [A utomated message] The system [employer] generated this result transmitted ref erence range: [...] See_Comment [Aut omated message] 777-3) The system [employer] generated this result transmitted ref erence range: 150 - 45 0 K/CU MM. The referen ce range was not u sed to interpret this result as normal/abnor mal. MPV (test code = 9.3 fL 9.4-12.3 L 49622-0) nRBC (test code = 413) 0 See_Comment [Aut omated message] The system [employer] generated this result transmitted ref erence range: 0 - 0 /1 00 WBC. The refere nce range was not u sed to interpret this result as normal/abnor mal. Lab Interpretation (test Abnormal code = 45127-8) [facility] (Hemogram only)2021-03-10 05:10:00 Test Item Value Reference Range Interpretation Comments WBC (test code = 6690-2) 9.1 See_Comment [A utomated message] The system [employer] generated this result transmitted ref erence range: 3.5 - 10 .5 K/L. The refe rence range was not u sed to interpret this result as normal/abnor mal. RBC (test code = 789-8) 3.57 See_Comment L [Au tomated message] The system [employer] generated this result transmitted ref erence range: 3.93 - 5 .22 M/L. The refe rence range was not u sed to interpret this result as normal/abnor mal. MCHC (test code = 786-4) 30.9 See_Comment L [A utomated message] The system whic h [...] See_Comment [Aut omated message] 777-3) The system [employer] generated this result transmitted ref erence range: 150 - 45 0 K/CU MM. The referen ce range was not u sed to interpret this result as normal/abnor mal. MPV (test code = 9.3 fL 9.4-12.3 L 26515-3) nRBC (test code = 413) 0 See_Comment [Aut omated message] The system [employer] generated this result transmitted ref erence range: 0 - 0 /1 00 WBC. The refere nce range was not u sed to interpret this result as normal/abnor mal. Lab Interpretation (test Abnormal code = 11025-2) [facility] (HEMOGRAM ONLY)2021-03-10 05:10:00 Test Item Value [...] 0-0 (BEAKER) (test code = 413) POCT-GLUCOSE [id number] 00:05:00 Test Item Value Reference Range Interpretation Comments POC-GLUCOSE METER 83 mg/dL 70-110 : TESTED A T [facility] 6720 (BEAKER) (test code = [place], 1538) [address]: Physics Faculty Member/Techni aldo ID = [id number] for BRENDA VENCES SARS-COV2/RT-PCR ([facility])2021-03-09 23:58:00 Test Item Value Reference Range Interpretation Comments SARS-COV2/RT-PCR (test Negative Not Detected, Negative, code = 8965445) See external report for linked test SARS-COV-2 PERFORMING LAB [facility] SHIV (test code = 4485765) Negative result for this test determines that [...] of the Act.Fact Sheet for Healthcare Prov iders:https://www.[employer]/sites/default/files/product/documents/Fact_Sheet_HC _Ikbexunri_Odqr_TIAK-IaP-1.pdfFact Sheet for Healthcare Patients:https://www.[employer]/sites/default/files/product/docume nts/Bstb_Mkxcv_Arrgpcvo_Fisq_MQMP-ScX-8.pdfPerforming Laboratory:[facility], [place] [address]OSNI-MGPMQBO METER 2021-03-09 17:34:00 Test Item Value Reference Range Interpretation Comments POC-GLUCOSE METER 97 mg/dL 70-110 : TESTED A T [facility] [address] (LIA) (test code = FORTUNATO Sendy [facility], 1538) [address]: Physics Faculty Member/Techni aldo ID = [id number] for ALBINO ROSS MR, ABDOMEN, [id number] 17:11:00Unlisted Reason for Exam - Click Yes and Enter Reason Below->NoPatient with hyperdense material seen in distal CBD on CTA performed in [facility] : 1950 Sex: [...] MDReport Verified Date/Time: 03/09/2021 17:11:18 Reading Location: [address] Transitional Reading Room MR abdomen without IV contrast [id number] 17:11:00 Interface, External Ris In - 03/09/2021 [...] MDReport Verified Date/Time: 03/09/2021 17:11:18 Reading Location: [address] Transitional Reading Room [facility] [id number] 17:11:00Interface, External Ris In - 03/09/2021 5:13 [...] MDReport Verified Date/Time: 03/09/2021 17:11:18 Reading Location: [address] Transitional Reading Room [facility] without IV contrast [id number] 17:11:00Interface, External Ris In - 03/09/2021 5:13 [...] MDReport Verified Date/Time: 03/09/2021 17:11:18 Reading Location: [facility] C013T Transitional Reading Room [facility] abdomen without IV contrast [id number] 17:11:00Interface, External Ris In - 03/09/2021 5:13 [...] Peralta Verified Date/Time: 03/09/2021 17:11:18 Reading Location: [address] Reading Room [facility] CenterPOCT-GLUCOSE [id number] 12:41:00 Test Item Value Reference Range Interpretation Comments POC-GLUCOSE METER 92 mg/dL 70-110 : TESTED A T [facility] 6720 (BEAKER) (test code = [facility], 1538) [address]: Physics Faculty Member/Techni aldo ID = [id number] for TEZE NO, ALBINO Urinalysis w/Microscopic + Reflex to [id number] 11:21:00 Test Item Value Reference Range Interpretation Comments Color, UA (test code Light Yellow = 5778-6) Clarity, UA (test Clear code = 5767-9) Specific [place], UA 1.033 1.001-1.035 (test code = 5811-5) pH, UA (test code = 5.5 5.0-8.0 5803-2) Protein, UA (test Negative Negative code = 48806-7) Glucose, UA (test Negative Negative code = 365) Ketones, UA (test Negative Negative code = 2514-8) Bilirubin, UA (test Negative Negative code = 83861-3) Blood, UA (test code Trace Negative A = 85533-4) Nitrite, UA (test Negative Negative code = 5802-4) Leukocytes, UA (test Negative Negative code = 5799-2) Urobilinogen, UA 0.2 mg/dL 0.2-1 (test code = 26456-8) RBC, UA (test code = 2 See_Comment [Autom ated 71641-6) message] The system which generated this result [...] Bacteria, UA (test None Seen code = 18667-4) Mucus (test code = Rare 8247-9) Squam Epithel, UA 1 See_Comment [Automate d (test code = 54578-3) messag e] The system which generated this result transmit lane reference range : /HPF. The reference range was not used to interpret this result as normal/abnormal . Crystals, Urine (test None Seen code = 82390-4) Specimen Source (test code = 2795) TORRES (test code = TORRES) Physics Faculty Member ID - [auto]Physics Faculty Member ID - tech Lab Interpretation Abnormal (test code = 08065-7) [facility] 2021-03-09 11:21:00 Test Item Value Reference Range Interpretation Comments Color, UA (test code Light Yellow = 5778-6) Clarity, UA (test Clear code = 5767-9) Specific [place], UA 1.033 1.001-1.035 (test code = 5811-5) pH, UA (test code = 5.5 5.0-8.0 5803-2) Protein, UA (test Negative Negative code = 39822-8) Glucose, UA (test Negative Negative code = 365) Ketones, UA (test Negative Negative code = 2514-8) Bilirubin, UA (test Negative Negative code = 23650-5) Blood, UA (test code Trace Negative A = 63419-7) Nitrite, UA (test Negative Negative code = 5802-4) Leukocytes, UA (test Negative Negative code = 5799-2) Urobilinogen, UA 0.2 mg/dL 0.2-1 (test code = 27354-2) RBC, UA (test code = 2 See_Comment [Autom ated 00617-7) message] The system which generated this result [...] Bacteria, UA (test None Seen code = 50833-6) Mucus (test code = Rare 8247-9) Squam Epithel, UA 1 See_Comment [Automate d (test code = 42982-8) messag e] The system which generated this result transmit lane reference range : /HPF. The reference range was not used to interpret this result as normal/abnormal . Crystals, Urine (test None Seen code = 16373-3) Specimen Source (test code = 2795) TORRES (test code = TORRES) Physics Faculty Member ID - [auto]Physics Faculty Member ID - tech Lab Interpretation Abnormal (test code = 00521-6) [facility] Culture 2021-03-09 11:21:00 Test Item Value Reference Range Interpretation Comments Color, UA (test code Light Yellow = 5778-6) Clarity, UA (test Clear code = 5767-9) Specific [place], UA 1.033 1.001-1.035 (test code = 5811-5) pH, UA (test code = 5.5 5.0-8.0 5803-2) Protein, UA (test Negative Negative code = 63737-7) Glucose, UA (test Negative Negative code = 365) Ketones, UA (test Negative Negative code = 2514-8) Bilirubin, UA (test Negative Negative code = 56195-5) Blood, UA (test code Trace Negative A = 68223-1) Nitrite, UA (test Negative Negative code = 5802-4) Leukocytes, UA (test Negative Negative code = 5799-2) Urobilinogen, UA 0.2 mg/dL 0.2-1 (test code = 61834-8) RBC, UA (test code = 2 See_Comment [Autom ated 13950-6) message] The system which generated this result [...] Bacteria, UA (test None Seen code = 46299-7) Mucus (test code = Rare 8247-9) Squam Epithel, UA 1 See_Comment [Automate d (test code = 77166-6) messag e] The system which generated this result transmit lane reference range : /HPF. The reference range was not used to interpret this result as normal/abnormal . Crystals, Urine (test None Seen code = 27194-7) Specimen Source (test code = 2795) TORRES (test code = TORRES) Physics Faculty Member ID - [auto]Physics Faculty Member ID - tech Lab Interpretation Abnormal (test code = 96515-4) [facility]lex [facility] Culture 2021-03-09 11:21:00 Test Item Value Reference Range Interpretation Comments Color, UA (test code Light Yellow = 5778-6) Clarity, UA (test Clear code = 5767-9) Specific [place], UA 1.033 1.001-1.035 (test code = 5811-5) pH, UA (test code = 5.5 5.0-8.0 5803-2) Protein, UA (test Negative Negative code = 88993-3) Glucose, UA (test Negative Negative code = 365) Ketones, UA (test Negative Negative code = 2514-8) Bilirubin, UA (test Negative Negative code = 90669-1) Blood, UA (test code Trace Negative A = 81870-9) Nitrite, UA (test Negative Negative code = 5802-4) Leukocytes, UA (test Negative Negative code = 5799-2) Urobilinogen, UA 0.2 mg/dL 0.2-1 (test code = 42887-6) RBC, UA (test code = 2 See_Comment [Autom ated 73666-5) message] The system which generated this result [...] Bacteria, UA (test None Seen code = 90044-2) Mucus (test code = Rare 8247-9) Squam Epithel, UA 1 See_Comment [Automate d (test code = 82563-7) messag e] The system which generated this result transmit lane reference range : /HPF. The reference range was not used to interpret this result as normal/abnormal . Crystals, Urine (test None Seen code = 43667-1) Specimen Source (test code = 2795) TORRES (test code = TORRES) Physics Faculty Member ID - [auto]Physics Faculty Member ID - tech Lab Interpretation Abnormal (test code = 93332-3) [facility]LEX URINE [id number] 11:21:00 Test Item Value Reference Range Interpretation [...] = 1521) SOURCE(BEAKER) (test code = 2795) Physics Faculty Member ID - [auto]Physics Faculty Member ID - techHEMOGLOBIN [id number] 10:22:00 Test Item Value Reference Range Interpretation Comments HEMOGLOBIN A1C (BEAKER) (test code = 6.1 % 4.3-6.1 368) [id number] 06:48:00 Test Item Value Reference Range Interpretation Comments Magnesium (test code = 2.1 mg/dL 1.6-2.6 13161-5) TORRES (test code = TORRES) Physics Faculty Member ID - ELVIN W Lab Interpretation (test Normal code = 35023-0) [facility] 06:48:00 Test Item Value Reference Range Interpretation Comments Magnesium (test code = 2.1 mg/dL 1.6-2.6 47144-8) TORRES (test code = TORRES) Physics Faculty Member ID - ELVIN W Lab Interpretation (test Normal code = 79379-4) [facility] 06:48:00 Test Item Value Reference Range Interpretation Comments Magnesium (test code = 2.1 mg/dL 1.6-2.6 09636-4) TORRES (test code = TORRES) Physics Faculty Member ID - ELVIN W Lab Interpretation (test Normal code = 19218-9) [facility] 06:48:00 Test Item Value Reference Range Interpretation Comments Magnesium (test code = 2.1 mg/dL 1.6-2.6 05773-6) TORRES (test code = TORRES) Physics Faculty Member ID - ELVIN W Lab Interpretation (test Normal code = 80607-8) [facility]IC [id number] 06:48:00 Test Item Value Reference Range Interpretation [...] S NOT APPLICABLE FOR DIALYSIS PATIEN TS. Physics Faculty Member ID - ELVIN [id number] 06:48:00 Test Item Value Reference Range Interpretation Comments MAGNESIUM (BEAKER) (test code = 2.1 mg/dL 1.6-2.6 627) Physics Faculty Member ID - ELVIN WHEPATIC FUNCTION [id number] 06:48:00 Test Item Value Reference Range Interpretation [...] (test code = 30 U/L 6-55 347) Physics Faculty Member ID Carlo ELVIN WPROTHROMBIN TIME/[id number] 06:32:00 Test Item Value Reference Range Interpretation Comments PROTIME (BEAKER) 12.9 seconds 11.9-14.2 (test code = 759) INR (BEAKER) (test 0.99 See_Comment [Automat ed message] code = 370) The system [employer] generated this result transmitted ref erence range: <=5.90. The reference range was not used to int erpret this result as normal/abnormal . RECOMMENDED COUMADIN/WARFARIN INR THERAPY RANGESSTANDARD DOSE: 2.0 - 3.0 Includes: PROPHYLAXIS for venous thrombosis, systemic embolization; TREATMENT for venous thrombosis and/or pulmonary embolus.HIGH RISK: Target INR is 2.5-3.5 for patients with mechanical heart valves.CBC W/PLT COUNT & AUTO [id number] 06:29:00 Test Item Value Reference Range Interpretation [...] code = 2801) MRI Brain wo contrast [id number] 16:25:00Patient Name: ALBERTO VERA: 1950. Age: 67 years. Gender: Female.MR: [id number]. Location: [facility]. Provider: Hollie Acuña MD.EXAM: Brain [...] abnormality. Mild chronic microangiopathic ischemic gliosis. SL: [id number]--Nljp by: Finesse Dias MDDictated Date/time: 02/08/18 17:31Electronically Signed by: Finesse Dias MD 02/08/1817:40FINAL REPORTUT PhysiciansI Brain w/wo contrast [id number] 2018-02-08 13:39:00 Test Item Value Reference Range Interpretation Comments Brain w/wo contrast MRI Cancel Reason: Exam (test code = Brain w/wo Replaced contrast MRI) [facility]
[2023-04-16] MEDS ORDERED: HYDROCODONE/APAP 5/325 MG TAB ONE (17:09)
[2023-04-16] MEDS ORDERED: ONDANSETRON 4 MG (ODT) TAB ONE (17:09)
--- NOTE | 2023-04-16 17:23 | RAD REPORT ---
EXAM DESCRIPTION: CT - Head Brain Wo Cont - 04/16/2023 5:16 pm CLINICAL HISTORY: PAIN Headache, drowsiness COMPARISON: <Comparisons> TECHNIQUE: All CT scans are performed using dose optimization technique as appropriate and may inclu de automated exposure control or mA/KV adjustment according to patient size. FINDINGS: No intracranial hemorrhage, hydrocephalus or extra-axial fluid collection.Moderate diffuse brain atrophy.No areas of brain edema or evidence of midline shift. The paranasal sinuses and mastoids are clear. The calvarium is intact. IMPRESSION: No acute intracranial abnormality.
--- NOTE | 2023-04-16 17:46 | EDPHYS ---
Physician Documentation [facility] Name: Alberto Botello Age: 72 yrs Sex: Female : 1950 Arrival Date: 04/16/2023 Time: 16:19 Bed 4 Private MD: ED Physician Carmella Kennedy HPI: 04/16 18:21 This 72 yrs old [place] Female presents to ER via EMS with complaints of Headache. cp3 18:21 The patient complains of pain to the forehead. The patient describes the headache as cp3 aching, constant. Onset: The symptoms/episode began/occurred 12 day(s) ago. Associated signs and symptoms: Pertinent negatives: altered mental status, dizziness, fever, malaise, neck stiffness, paresthesias, Photophobia vision changes, vision loss, weakness. Severity of symptoms: At its worst the pain was moderate, earlier today. Headache History: The patient has had previous headaches and this one is similar to previous episodes. The symptoms are alleviated by nothing. 19:20 The patient has experienced a previous episode, The patient has experienced similar cp3 episodes in the past. The patient has been recently seen at the [facility] Emergency Department, this week. Historical: - Allergies: 16:32 No Known Allergies; aa5 - PMHx: 16:32 Anxiety; Chronic pain; Diabetes - NIDDM; Hepatitis; Hypertension; Osteoporosis; aa5 Pancreatitis; CHF; - PSHx: 16:32 Cholecystectomy; hip; Total abdominal hysterectomy; aa5 - Immunization history:: Adult Immunizations unknown. - Social history:: Smoking status: Patient denies any tobacco usage or history of. - Family history:: not pertinent. ROS: 19:20 Constitutional: Negative for fever, chills, and weight loss, Eyes: Negative for injury, cp3 pain, redness, and discharge, ENT: Negative for injury, pain, and discharge, Neck: Negative for injury, pain, and swelling, Cardiovascular: Negative for chest pain, palpitations, and edema, Respiratory: Negative for shortness of breath, cough, wheezing, and pleuritic chest pain, Abdomen/GI: Negative for abdominal pain, nausea, vomiting, diarrhea, and constipation, Back: Negative for injury and pain, : Negative for injury, bleeding, discharge, and swelling, MS/Extremity: Negative for injury and deformity, Skin: Negative for injury, rash, and discoloration. 19:20 Neuro: Positive for headache. 19:20 All other systems are negative. Exam: 19:20 Constitutional: This is a well developed, well nourished patient who is awake, alert, cp3 and in no acute distress. Head/Face: Normocephalic, atraumatic. Eyes: Pupils equal round and reactive to light, extra-ocular motions intact. Lids and lashes normal. Conjunctiva and sclera are non-icteric and not injected. Cornea within normal limits. Periorbital areas with no swelling, redness, or edema. ENT: Nares patent. No nasal discharge, no septal abnormalities noted. Tympanic membranes are normal and external auditory canals are clear. Oropharynx with no redness, swelling, or masses, exudates, or evidence of obstruction, uvula midline. Mucous membranes moist. Neck: Trachea midline, no thyromegaly or masses palpated, and no cervical lymphadenopathy. Supple, full range of motion without nuchal rigidity, or vertebral point tenderness. No Meningismus. Chest/axilla: Normal chest wall appearance and motion. Nontender with no deformity. No lesions are appreciated. Cardiovascular: Regular rate and rhythm with a normal S1 and S2. No gallops, murmurs, or rubs. Normal PMI, no JVD. No pulse deficits. Respiratory: Lungs have equal breath sounds bilaterally, clear to auscultation and percussion. No rales, rhonchi or wheezes noted. No increased work of breathing, no retractions or nasal flaring. Abdomen/GI: Soft, non-tender, with normal bowel sounds. No distension or tympany. No guarding or rebound. No evidence of tenderness throughout. Back: No spinal tenderness. No costovertebral tenderness. Full range of motion. Female : Normal external genitalia. MS/ Extremity: Pulses equal, no cyanosis. Neurovascular intact. Full, normal range of motion. Neuro: Awake and alert, GCS 15, oriented to person, place, time, and situation. Cranial nerves II-XII grossly intact. Motor strength 5/5 in all extremities. Sensory grossly intact. Cerebellar exam normal. Normal gait. Psych: Awake, alert, with orientation to person, place and time. Behavior, mood, and affect are within normal limits. Vital Signs: 16:23 BP 165 / 76; Pulse 83; Resp 18 S; Temp 98.8(O); Pulse Ox 99% on R/A; aa5 17:05 Weight 68 kg (R); aa5 17:05 BP 161 / 70; Pulse 80; Resp 18 S; Pulse Ox 99% on R/A; aa5 18:00 BP 167 / 70; Pulse 79; Resp 18 S; Temp 98(TE); Pulse Ox 99% on R/A; aa5 MDM: 16:46 Patient medically screened. cp3 19:21 Data reviewed: vital signs, nurses notes, diagnostic data from outside facility, cp3 radiologic studies, CT scan. 04/16 16:48 Order name: CT Head Brain wo Cont; Complete Time: 17:45 cp3 Administered Medications: 17:05 Drug: HYDROcodone-acetaminophen PO 5 mg-325 mg 2 tabs Route: PO; aa5 18:00 Follow up: Response: No adverse reaction aa5 17:05 Drug: Ondansetron Oral Disintegrating Tablet Oral Disintegrating Tablet 4 mg Route: PO; aa5 18:00 Follow up: Response: No adverse reaction aa5 Disposition Summary: 04/16/23 17:46 Discharge Ordered Location: Home cp3 Problem: an acute exacerbation cp3 Symptoms: have improved cp3 Condition: Stable cp3 Diagnosis - Headache cp3 Followup: cp3 - With: Private Physician - When: As needed - Reason: If symptoms return Discharge Instructions: - Discharge Summary Sheet cp3 - General Headache Without Cause cp3 Forms: - Medication Reconciliation Form cp3 - Thank You Letter cp3 - Antibiotic Education cp3 - Prescription Opioid Use cp3 - Patient Portal Instructions cp3 Signatures: Dispatcher [employer] Camrella Bishop MD MD cp3 Merna Higgins, RN RN aa5
--- NOTE | 2023-04-16 17:46 | ER ---
Nurse's Notes [facility] Name: Alberto Botello Age: 72 yrs Sex: Female : 1950 Arrival Date: 04/16/2023 Time: 16:19 Bed 4 Private MD: Diagnosis: Headache Presentation: 04/16 16:23 Chief complaint: EMS states: frontal headache since yesterday and worse today. Pt's aa5 daughter reports pt was seen here for abd pain 2 days ago. 16:23 Coronavirus screen: headache. Ebola Screen: Patient denies [place] an [place] in the 21 days before illness onset. Initial Sepsis Screen: Does the patient meet any 2 criteria? No. Patient's initial sepsis screen is negative. Does the patient have a suspected source of infection? No. Patient's initial sepsis screen is negative. Risk Assessment: Do you want to hurt yourself or someone else? Patient reports no desire to harm self or others. Onset of symptoms was April 15, 2023. 16:23 Acuity: ART 3 aa5 16:23 Method Of Arrival: EMS: [facility] aa5 Historical: - Allergies: 16:32 No Known Allergies; aa5 - PMHx: 16:32 Anxiety; Chronic pain; Diabetes - NIDDM; Hepatitis; Hypertension; Osteoporosis; aa5 Pancreatitis; CHF; - PSHx: 16:32 Cholecystectomy; hip; Total abdominal hysterectomy; aa5 - Immunization history:: Adult Immunizations unknown. - Social history:: Smoking status: Patient denies any tobacco usage or history of. - Family history:: not pertinent. Screenin:38 Abuse screen: no signs of abuse noted. Nutritional screening: No deficits noted. aa5 Tuberculosis screening: No symptoms or risk factors identified. 16:38 [facility] ED Fall Risk Assessment (Adult) History of falling in the last 3 months, aa5 including since admission Yes- single mechanical fall (1 pt) Confusion or Disorientation No (0 pts) Intoxicated or Sedated No (0 pts) Impaired Gait No (0 pts) Mobility Assist Device Used No (0 pt) Altered Elimination No (0 pt) Score/Fall Risk Level 0 - 2 = Low Risk Oriented to surroundings, Maintained a safe environment, Educated pt \\T\\ family on fall prevention, incl call for assistance when getting out of bed. Assessment: 16:23 General: Appears uncomfortable, Behavior is cooperative. Pain: Complains of pain in aa5 forehead Pain began 1 day ago. Is continuous, Unable to use pain scale. Does not appear to understand pain scale. Neuro: Level of Consciousness is awake, alert, obeys commands, Oriented to person, place, situation. Cardiovascular: Heart tones S1 S2 present Rhythm is regular. Respiratory: Airway is patent Respiratory effort is even, unlabored, Respiratory pattern is regular, symmetrical. GI: Abdomen is round non-distended, Bowel sounds present X 4 quads. Abd is soft and non tender X 4 quads. Pt reports pain to left lateral aspect of abdomen, pt's daughter states "she has back problems and the doctor's say that her pain radiates to the abdomen from her back", reports pt was seen in ER 2 days ago. : No signs and/or symptoms were reported regarding the genitourinary system. EENT: No signs and/or symptoms were reported regarding the EENT system. Derm: Skin is pink, warm \\T\\ dry. Musculoskeletal: Range of motion: intact in all extremities. 16:23 Reassessment: Pt speaks Telugu only. Pt's daughter at bedside. . aa5 16:23 Reassessment: Pt's daughter reports pt takes hydrocodone daily for pain control. . aa5 17:10 Reassessment: Pt to CT via stretcher . aa5 18:00 Reassessment: Patient is alert, oriented x 3, equal unlabored respirations, skin aa5 warm/dry/pink. Patient states symptoms have not improved. MD was notified. . 18:00 Reassessment: Pt's daughter requesting to speak to MD before d/c home. aa5 18:02 Reassessment: MD at bedside speaking to pt's daughter . aa5 Vital Signs: 16:23 BP 165 / 76; Pulse 83; Resp 18 S; Temp 98.8(O); Pulse Ox 99% on R/A; aa5 17:05 Weight 68 kg (R); aa5 17:05 BP 161 / 70; Pulse 80; Resp 18 S; Pulse Ox 99% on R/A; aa5 18:00 BP 167 / 70; Pulse 79; Resp 18 S; Temp 98(TE); Pulse Ox 99% on R/A; aa5 ED Course: 16:23 Patient arrived in ED. eb 16:23 Arm band placed on. aa5 16:23 Patient has correct armband on for positive identification. Bed in low position. Call aa5 light in reach. Side rails up X2. 16:31 Carmella Kennedy MD is Attending Physician. cp3 16:32 Merna Higgins, RN is Primary Nurse. aa5 16:35 Triage completed. aa5 17:18 CT Head Brain wo Cont In Process Unspecified. EDMS 18:20 No provider procedures requiring assistance completed. Patient did not have IV access aa5 during this emergency room visit. Administered Medications: 17:05 Drug: HYDROcodone-acetaminophen PO 5 mg-325 mg 2 tabs Route: PO; aa5 18:00 Follow up: Response: No adverse reaction aa5 17:05 Drug: Ondansetron Oral Disintegrating Tablet Oral Disintegrating Tablet 4 mg Route: PO; aa5 18:00 Follow up: Response: No adverse reaction aa5 Medication: 18:20 VIS not applicable for this client. aa5 Outcome: 17:46 Discharge ordered by . cp3 18:20 Discharged to home via wheelchair, with family. aa5 18:20 Condition: stable 18:20 Discharge instructions given to Pt's daughter Instructed on discharge instructions, follow up and referral plans. Demonstrated understanding of instructions, follow-up care. 18:30 Patient left the ED. aa5 Signatures: Dispatcher [employer] LEOLAND Carmella Kennedy MD MD cp3 Merna Higgins, RN RN aa5 Veronica Chappell Corrections: (The following items were deleted from the chart) 18:48 18:46 Patient left the ED. aa5 aa5
[2023-04-16 18:54] VITALS: BP 165/76; TEMP 98.8; O2SAT 99
== END 2023-04-16 18:46 | disposition home or self-care (01) ==
LOC: ER 16:19
DX: R51.9 Headache, unspecified (principal)
CPT/HCPCS: 70450; 99283; Q0162

== ENCOUNTER 2023-04-20 19:37 | Emergency (ER) | payer OTHER ==
--- OUTSIDE RECORDS SUMMARY | 2023-04-20 19:49 | XMS REPORT | Continuity of Care Document ---
:1950 Author Organization [facility] t Address [address] [place] [address] [place] [id number] Care Team Providers Name Role Phone JAIME ROBERTS Primary Care Physician Unavailable Paolo MAY, Jessica Gimenez Attending Clinician [phone] PAOLA BURNETT Attending Clinician Unavailable Doctor Unassigned, [place] Attending Clinician Unavailable FRANCINE VANESSA Attending Clinician Unavailable BALDOMERO RAO Attending Clinician Unavailable Baldomero Rao MD Attending Clinician Lab, Ang - Db Attending Clinician Unavailable Rosa Isela Ching MD Attending Clinician [phone] Britney Lloyd MD Attending Clinician [phone] BRITNEY LLOYD Attending Clinician Unavailable Eryn MAY, Lili Patel Attending Clinician Heaven Garza MD Attending Clinician Unavailable GLENN PAULSON Attending Clinician Unavailable Glenn Paulson DO Attending Clinician Cherie Faustin MD Attending Clinician Caterina Richardson MD Attending Clinician [phone] Omari Ahuja MD Attending Clinician Denise Quispe MD Attending Clinician Jm Rushing Attending Clinician Nikita MAY, Juan Alberto Gruber Attending Clinician CRISTELA HUTCHINSON Attending Clinician Unavailable Ezequiel DUMONT Tyesha A Attending Clinician Unavailable Paola Burnett MD Attending Clinician Kathy MAY, Allen Rm Attending Clinician [phone] Josef MAY, Graciela Colón Attending Clinician [phone] HOLLIE ACUÑA M.D. Attending Clinician Unavailable PAOLA BURNETT Admitting Clinician Unavailable ELICIA RAPP Admitting Clinician Unavailable GLENN PAULSON Admitting Clinician Unavailable CATERINA RICHARDSON Admitting Clinician Unavailable ROSA ISELA CHING Admitting Clinician Unavailable Payers Payer Name Policy Type Policy Number Effective Date Expiration Date S ource MEDICARE A B [id number] 2021 00:00:00 [place]ICAID OF [place] [id number] Problems Condition Condition Condition Status Onset Resolution Last Treating Co mments Source Name Details Category Date Date Treatment Clinician Date Traumatic Traumatic Disease [facility] displaced [facility]: Medi josephine fracture fracture 00 Center of neck of of neck of right right femur, femur, initial initial encounter encounter Acute on Acute on Disease Recur[facility] chronic chronic [facility] 05-10 [facility] pancreatit pancreatit 00:00: Me dical is is 00 Center Common Common Disease Active [facility] bile duct bile duct 8 [facility] calculus calculus 00:00: Medica l 00 Center Abdominal Abdominal Disease Active [facility] pain pain 6- [facility] 00:[facility]: Medical 00 Center Closed Closed Disease Active Univers fracture fracture 707 ity of of first of first 00:00: [place] lumbar lumbar 00 Medical vertebra vertebra Branch with with routine routine healing healing Diabetes Diabetes Disease [facility] mellitus mellitus [facility] Hypovolemi Hypovolemi Disease [facility] c shock c shock [facility] Hypertensi Hypertensi Disease Active C [facility] on on [facility] New onset New onset Problem Active [...] Active Univers ALLERGIE Class ity of S [facility] NO KNOWN Allergy Active [facility] ALLERGIE [facility] Family History Family Member Diagnosis Comments Start Date Stop Date Source Father Family history of lung [facility] Social History Social Habit Start Date Stop Date Quantity Comments Source History [facility]Med Medical Center Gender identity Universit y of [facility] Sexual orientation Univer sity [facility] Exposure to 2022-10-11 2022-10-21 Not sure University of SARS-CoV-2 (event) 00:00:00 09:35:00 [facility] History of Social 2022-10-04 2022-10-04 Univers ity of function 00:00:00 00:00:00 [facility] Alcohol intake 2022-04-08 2022-04-08 Ex-drinker [facility] 00:00:00 00:00:00 (finding) Medical Center History [facility] 2022-04-07 2022-04-[address] [facility] Transport Med 00:00:00 00:00:[address] [facility] 2022-04-07 2022-04-[address] [facility] Housing Unable to 00:00:00 00:00:00 Medical Center Pay History [facility] 2022-04-07 2022-04-[address] [facility] Housing Places 00:00:00 00:00:00 Medical Ce nter Lived History [facility] 2022-04-07 2022-04-[address] [facility] Housing Homeless 00:00:00 00:00:00 Medical Center Last Year Tobacco use and 2016-03-18 2016-03-18 Smokeless Universit y of exposure 00:00:00 00:00:00 tobacco non-user [facility] Sex [birth year] At [birth year] EDWARD Rosales 00:00:00 00:00:00 Medical Center Smoking Status Start Date Stop Date Source Never smoked tobacco [facility] Medications Ordered Filled Start Stop Current Ordering Indication Dosage Frequency Signature Comments Components Source Medication Medication Date Date Medication? Clinician (SIG) Name Name methylPREDN 2023-0 Yes [id number] 84mg Take 21 Univers ISolone 2-09 4102 tablets by ity of (MEDROL, 00:00: mouth [place] PB,) 4 mg 00 SEE-INSTRU Med ical tablets CTIONS. Branch follow package directions methylPREDN 2023-0 Yes [id number] 84mg Take 21 Univers ISolone 2-09 4102 tablets by ity of (MEDROL, 00:00: mouth [place] PB,) 4 mg 00 SEE-INSTRU Med ical tablets CTIONS. Branch follow package directions methylPREDN 3-0 Yes [id number] 84mg Take 21 Univers ISolone 2-09 4102 tablets by ity of (MEDROL, 00:00: mouth [place] PB,) 4 mg 00 SEE-INSTRU Med ical tablets CTIONS. Branch follow package directions methylPREDN 3-0 Yes [id number] 84mg Take 21 Univers ISolone 2-09 4102 tablets by ity of (MEDROL, 00:00: mouth [place] PB,) 4 mg 00 SEE-INSTRU Med ical tablets CTIONS. Branch follow package directions loratadine 2023-0 Yes 10mg Take 10 mg U nivers 10 mg 1-15 by mouth ity of tablet 00:00: in the [place] [address] morning. Medical Branch loratadine 2023-0 Yes 10mg Take 10 mg U nivers 10 mg 1-15 by mouth ity of tablet 00:00: in the [place] [address] morning. Medical Branch loratadine 2023-0 Yes 10mg Take 10 mg U nivers 10 mg 1-15 by mouth ity of tablet 00:00: in the [place] [address] morning. Medical Branch loratadine 2023-0 Yes 10mg Take 10 mg U nivers 10 mg 1-15 by mouth ity of tablet 00:00: in the [place] [address] morning. Medical Branch loratadine 2023-0 Yes 10mg [...] 00:00: in the [place] morning. Medical Branch HYDROcodone 2022-0 Yes 1{tbl} [...] by ity of tablet 00:00: mouth in [place] [address] the Medical morning Branch and 0.5 mg in the evening. memantine 5 2023-0 Yes 5mg Take 5 mg U nivers mg tablet 1-05 by mouth ity of 00:00: in the [place] morning Medical and 5 mg Branch in the evening. risperiDONE 2023-0 Yes .5mg Take 0.5 [place] 0.5 mg 1-05 mg by ity of tablet 00:00: mouth in [place] [address] the Medical morning Branch and 0.5 mg in the evening. memantine 5 2023-0 Yes 5mg Take 5 mg U nivers mg tablet 1-05 by mouth ity of 00:00: in the [place] morning Medical and 5 mg Branch in the evening. risperiDONE 2023-0 Yes .5mg Take 0.5 [place] 0.5 mg 1-05 mg by ity of tablet 00:00: mouth in [place] [address] the Medical morning Branch and 0.5 mg in the evening. memantine 5 2023-0 Yes 5mg Take 5 mg U nivers mg tablet 1-05 by mouth ity of 00:00: in the [place] [address] morning Medical and 5 mg Branch in [...] by ity of tablet 00:00: mouth in [place] [address] the Medical morning Branch and 0.5 mg in the evening. memantine 5 2022-0 Yes 5mg Take 5 mg U nivers mg tablet 1-05 by mouth ity of 00:00: in the [place] morning Medical and 5 mg Branch in the evening. risperiDONE 3-0 Yes .5mg Take 0.5 [place] 0.5 mg 1-05 mg by ity of tablet 00:00: mouth in [place] [address] the Medical morning Branch and 0.5 mg [...] every [place] 00 morning. Medical Branch citalopram 2021- Yes 20mg Take 20 mg U nivers 20 mg 2-24 by mouth ity of tablet 00:00: every [place] morning. Medical Branch citalopram 2021- Yes 20mg Take 20 mg U nivers 20 mg 2-24 by mouth ity of tablet 00:00: every [place] morning. Medical Branch citalopram 2021- Yes 20mg Take 20 mg U nivers 20 mg 2-24 by mouth ity of tablet 00:00: every [place] morning. Medical Branch citalopram 2021- Yes 20mg Take 20 mg U nivers 20 mg 2-24 by mouth ity of tablet 00:00: every [place] morning. Medical Branch alendronate 2021- Yes 70mg Take 70 mg Univers 70 mg 1-09 by mouth ity of tablet 00:00: weekly. [place] [address] Medical Branch alendronate 2021- Yes 70mg Take 70 mg Univers 70 mg 1-09 by mouth ity of tablet 00:00: weekly. [place] [address] Medical Branch alendronate 2021- Yes 70mg Take 70 mg Univers 70 mg 1-09 by mouth ity of tablet 00:00: weekly. [place] [address] Medical Branch alendronate 2021- Yes 70mg Take 70 mg Univers 70 mg 1-09 by mouth ity of tablet 00:00: weekly. [place] [address] Medical Branch alendronate 2021- Yes 70mg Take 70 mg Univers 70 mg 1-09 by mouth ity of tablet 00:00: weekly. [place] Medical Branch alendronate 2021- Yes 70mg Take 70 mg Univers 70 mg 1-09 by mouth ity of tablet 00:00: weekly. [place] Medical Branch alendronate 2021- Yes 70mg Take 70 mg Univers 70 mg 1-09 by mouth ity of tablet 00:00: weekly. [place] [address] Medical Branch alendronate 2021- Yes 70mg Take 70 mg Univers 70 mg 1-09 by mouth ity of tablet 00:00: weekly. [place] [address] Medical Branch alendronate 2021- Yes 70mg Take 70 mg Univers 70 mg 1-09 by mouth ity of tablet 00:00: weekly. [place] [address] Medical Branch alendronate 2021-09 Yes 70mg Take 70 mg Univers 70 mg 1-09 by mouth ity of tablet 00:00: weekly. [address] Branch lactulose 2021-09 Yes Univers 10 gram/15 1-02 ity of mL solution 00:00: [place] [facility] tiZANidine 2021-09 Yes Univers 4 mg tablet -02 ity of 00:00: [place] Medical Branch lactulose 2021-09 Yes Univers 10 gram/15 -02 ity of mL solution 00:00: [place] [address] Medical Branch tiZANidine 2021-09 Yes Univers 4 mg tablet -02 ity of 00:00: [place] [address] Medical Branch lactulose 2021-09 Yes Univers 10 gram/15 -02 ity of mL solution 00:00: [place] [address] Medical Branch tiZANidine 2021-09 Yes Univers 4 mg tablet 02 ity of 00:00: [place] [address] Medical [place] lactulose 2021-09 Yes Univers 10 gram/15 -02 ity of mL solution 00:00: [place] [address] Medical Branch tiZANidine 2021-09 Yes Univers 4 mg tablet -02 ity of 00:00: [place] [address] Medical Branch lactulose 2021-09 Yes Univers 10 gram/15 -02 ity of mL solution 00:00: [place] [address] Medical Branch tiZANidine 2021-09 Yes Univers 4 mg tablet -02 ity of 00:00: [place] [address] Medical Branch lactulose 2021-09 Yes Univers 10 gram/15 -02 ity of mL solution 00:00: [place] [address] Medical Branch tiZANidine 2021-09 Yes Univers 4 mg tablet -02 ity of 00:00: [place] [address] Medical Branch lactulose 2021-09 Yes Univers 10 gram/15 -02 ity of mL solution 00:00: [place] [address] Medical Branch tiZANidine 2021-09 Yes Univers 4 mg tablet -02 ity of 00:00: [place] [address] Medical Branch lactulose 2021-09 Yes Univers 10 gram/15 -02 ity of mL solution 00:00: [place] [address] Medical Branch tiZANidine 2021-09 Yes Univers 4 mg tablet -02 ity of 00:00: [place] [address] Medical Branch lactulose 2021-09 Yes Univers 10 [...] next 30 min. . HYDROcodone Yes 1{tbl} Q.85823257 Take [address] [facility] -acetaminop 04-13 [id number] tablet by [facility] (NORCO 20:18: 3D [...] MCG 20:18: mouth Medical capsule 17 daily. [place] alendronate Yes 70mg Take [address] [facility] (FOSAMAX) 02 by mouth [facility] 70 MG 20:18: every 7 Medical tablet 17 days Take Center in the morning with a full glass of water, on an empty stomach, and do not take anything else by mouth or lie down for the next 30 min. . HYDROcodone Yes 1{tbl} Q.[id number] Take [address] -acetaminop 04-13 [id number] tablet by [facility] (NORCO 20:18: 3D mouth 3 Medi josephine 5-325) 17 (three) Center 5-325 mg times per tablet daily. ursodioL Yes 500mg QD Take [address] (ACTIGALL) 8-02 mg by [facility] 500 MG 20:18: mouth Medical tablet 17 daily. [place] ALPRAZolam Yes 2mg Take 2 mg CH [...] MG 20:18: mouth Medical tablet 17 nightly. [place] traMADoL Yes 50mg Take 50 mg CHI [...] mouth Medical D3) 25 mcg 17 daily. [place] (1,000 unit) tablet lisinopriL Yes 10mg QD [...] MCG 20:18: mouth Medical capsule 17 daily. [place] alendronate Yes 70mg Take [address] (FOSAMAX) 8-02 by mouth [facility] 70 MG 20:18: every 7 Medical tablet 17 days Take Center in the morning with a full glass of water, on an empty stomach, and do not take anything else by mouth or lie down for the next 30 min. . HYDROcodone 0 Yes 1{tbl} Q.[id number] Take [address] -acetaminop 8- [id number] tablet by [facility] (NORCO 20:18: 3D [...] next 30 min. . HYDROcodone Yes 1{tbl} Q.[id number] Take [address] -acetaminop 04-13 [id number] tablet by [facility] (NORCO 20:18: 3D mouth 3 Medi josephine 5-325) 17 (three) Center 5-325 mg times per tablet daily. ursodioL Yes 500mg QD Take [address] (ACTIGALL) 8-02 mg by [facility] 500 MG 20:18: mouth Medical tablet 17 daily. [place] ALPRAZolam Yes 2mg Take 2 mg CH [...] MCG 20:18: mouth Medical capsule 17 daily. [place] alendronate Yes 70mg Take [address] [facility] (FOSAMAX) -02 by mouth [facility]ukes 70 MG 20:18: every 7 Medical tablet 17 days Take Center in the morning with a full glass of water, on an empty stomach, and do not take anything else by mouth or lie down for the next 30 min. . HYDROcodone Yes 1{tbl} Q.54904255 Take [address] [facility] [address] -acetaminop 04-13 [id number] tablet by [facility] (NORCO 20:18: 3D mouth 3 Medi josephine 5-325) 17 (three) Center 5-325 mg times per tablet daily. ursodioL 0 Yes 500mg QD Take [address] (ACTIGALL) 8-02 mg by [facility] 500 MG 20:18: mouth Medical tablet 17 daily. [place] ALPRAZolam Yes 2mg Take 2 mg CH [...] 30 min. . HYDROcodone 0 Yes 1{tbl} Q.[id number] Take [address] [facility] [address] -acetaminop 04-13 [id number] tablet by [facility] (NORCO 20:18: 3D [...] next 30 min. . HYDROcodone Yes 1{tbl} Q.[id number] Take [address] [facility] [address] -acetaminop 04-13 [id number] tablet by [facility] (NORCO 20:18: 3D mouth 3 Medi josephine 5-325) 17 (three) Center 5-325 mg times per tablet daily. ursodioL Yes 500mg QD Take [address] (ACTIGALL) 8-02 mg by [facility] 500 MG 20:18: mouth Medical tablet 17 daily. [place] ALPRAZolam Yes 2mg Take [address] (XANAX) 2 -02 by mouth [facility]ukes MG tablet 20:18: every [...] MCG 20:18: mouth Medical capsule 17 daily. [place] alendronate Yes 70mg Take [address] [facility] (FOSAMAX) 8-02 by mouth [facility] 70 MG 20:18: every 7 Medical tablet 17 days Take Center in the morning with a full glass of water, on an empty stomach, and do not take anything else by mouth or lie down for the next 30 min. . HYDROcodone 0 Yes 1{tbl} Q.[id number] Take [address] [facility] [address] -acetaminop - [id number] tablet by [facility] (NORCO 20:18: 3D mouth 3 Medi josephine 5-325) 17 (three) Center 5-325 mg times per tablet daily. ursodioL 2022-0 Yes 500mg QD Take [address] [...] next 30 min. . HYDROcodone Yes 1{tbl} Q.[id number] Take [address] [facility] [address] -acetaminop 8- [id number] tablet by [facility] hen (NORCO 20:18: 3D mouth 3 Medi josephine 5-325) 17 (three) Center 5-325 mg times per tablet daily. ursodioL Yes 500mg QD Take [address] (ACTIGALL) 8-02 mg by [facility] 500 MG 20:18: mouth Medical tablet 17 daily. [place] ALPRAZolam Yes 2mg Take 2 mg CH [...] MCG 20:18: mouth Medical capsule 17 daily. [place] alendronate Yes 70mg Take [address] [facility] (FOSAMAX) 8-02 by mouth [facility]ukes 70 MG 20:18: every 7 Medical tablet 17 days Take Center in the morning with a full glass of water, on an empty stomach, and do not take anything else by mouth or lie down for the next 30 min. . HYDROcodone 0 Yes 1{tbl} Q.[id number] Take [address] [facility] -acetaminop 04-13 [id number] tablet by [facility] hen (NORCO 20:18: 3D mouth 3 Medi josephine 5-325) 17 (three) Center 5-325 mg times per tablet daily. ursodioL 0 Yes 500mg QD Take [address] (ACTIGALL) 8-02 mg by [facility] 500 MG 20:18: mouth Medical tablet 17 daily. [place] amLODIPine 0 2022- No 5mg QD Take 1 CHI [...] by mouth Center daily. iopamidol 2020-09- No [id number] 100mL 100 mL, Univers (ISOVUE 09-23 Intravenou [...] IV Push, ity of mg 16:30: Q4HPRN, [place] 24 Starting Medical on Tue Branch 07/24/21 [...] MCG 10:59: mouth Medical capsule 53 daily. [place] alendronate Yes 70mg Take [address] [facility] (FOSAMAX) 8-26 by mouth [facility] 70 MG 10:59: every 7 Medical tablet 53 days Take Center in the morning with a full glass of water, on an empty stomach, and do not take anything else by mouth or lie down for the next 30 min. . HYDROcodone Yes 1{tbl} Q.[id number] Take [address] [facility] [address] -acetaminop 8-26 [id number] tablet by [facility] (NORCO 10:59: 3D [...] 30 min. . HYDROcodone 0 Yes 1{tbl} Q.[id number] Take [address] [facility] [address] -acetaminop 8-26 [id number] tablet by [facility] hen (NORCO 10:59: 3D mouth 3 Medi josephine 5-325) 53 (three) Center 5-325 mg times per tablet daily. ursodioL 0 Yes 500mg QD Take [address] (ACTIGALL) 8-26 mg by [facility] 500 MG 10:59: mouth Medical tablet 53 daily. Center ALPRAZolam 0 Yes 2mg Take 2 mg [...] 53 daily. Center (1,000 unit) tablet lisinopriL 2021-0 Yes 10mg QD Take 10 mg C [...] next 30 min. . HYDROcodone Yes 1{tbl} Q.[id number] Take [address] [facility] [address] -acetaminop 8-26 [id number] tablet by [facility] (NORCO 10:59: 3D mouth 3 Medi josephine 5-325) 53 (three) Center 5-325 mg times per tablet daily. ursodioL Yes 500mg QD Take [address] (ACTIGALL) 8-26 mg by [facility] 500 MG 10:59: mouth Medical tablet 53 daily. [place] traMADoL Yes 50mg Take 50 mg [facility] [...] next 30 min. . HYDROcodone Yes 1{tbl} Q.[id number] Take [address] [facility] [address] -acetaminop 8-26 [id number] tablet by [facility] (NORCO 09:40: 3D mouth 3 Medi josephine 5-325) 47 (three) Center 5-325 mg times per tablet daily. ursodioL Yes 500mg QD Take [address] (ACTIGALL) 8-26 mg by [facility] 500 MG 09:40: mouth Medical tablet 47 daily. [place] ALPRAZolam Yes 2mg Take 2 mg CH [...] 09:40: mouth Medical tablet 47 nightly. Center meclizine Yes [facility] (ANTIVERT) 6-21 [facility] 25 mg 00:00: Medical tablet 00 [facility] (ANTIVERT) 6-21 [facility] 25 mg 00:00: Medical tablet 00 [facility] (ANTIVERT) 6-21 [facility] 25 mg 00:00: Medical tablet 00 [facility] (ANTIVERT) 6-21 [facility] 25 mg 00:00: Medical tablet 00 [facility] (ANTIVERT) 6-21 [facility] 25 mg 00:00: Medical tablet 00 [facility] (ANTIVERT) 6-21 [facility] 25 mg 00:00: Medical tablet 00 [facility] (ANTIVERT) 6-21 [facility] 25 mg 00:00: Medical tablet 00 [facility] (ANTIVERT) 6-21 [facility] 25 mg 00:00: Medical tablet 00 [facility] (ANTIVERT) 6-21 [facility] 25 mg 00:00: Medical tablet 00 [facility] (ANTIVERT) 6-21 [facility] 25 mg 00:00: Medical tablet 00 [facility] (ANTIVERT) 6-21 [facility] 25 mg 00:00: Medical tablet 00 [facility] (ANTIVERT) 6-21 [facility] 25 mg 00:00: Medical tablet 00 [facility] (ANTIVERT) 6-21 [facility] 25 mg 00:00: Medical tablet 00 [facility] (ANTIVERT) 6-21 [facility] 25 mg 00:00: Medical tablet 00 [place] Nortriptyli Nortriptyli Yes HOLLIE TAKE 1 UT [...] TAKE 1.5 UT Sulfate 30 Sulfate 30 -23 TABLET P hysici MG Oral MG Oral 00:00: TWICE ans Tablet Tablet 00 DAILY MethylPREDN MethylPREDN Yes HOLLIE Medrol [place] ISolone 4 ISolone 4 5-23 DOMENICO M.D. dose pb Physici MG Oral MG Oral [...] ity of mg 24 hr 08:12: daily. [facility] 18 Medical Branch ALPRAZolam 0 Yes 2mg Take 2 mg [place] (XANAX) 2 7-07 by mouth ity of mg tablet 08:12: at bedtime [place] 18 as needed Medical for Sleep. Branch morphine 2016-0 Yes 30mg Take 30 mg Uni vers (AVINZA) 30 7-07 by mouth ity of mg 24 hr 08:12: daily. [facility] 18 Medical Branch amitriptyli 2015-0 Yes 10mg [...] [place] 00 TWICE A Medical DAY WITH [place] FOOD meloxicam Yes TAKE 1 Univer s (MOBIC) 7.5 6-15 TABLET BY ity of mg tablet 00:00: MOUTH [place] 00 TWICE A Medical DAY WITH [place] FOOD meloxicam Yes TAKE 1 Univer s (MOBIC) 7.5 6-15 TABLET BY ity of mg tablet 00:00: MOUTH [place] 00 TWICE A Medical DAY WITH [place] FOOD meloxicam Yes TAKE 1 Univer s (MOBIC) 7.5 6-15 TABLET BY ity of mg tablet 00:00: MOUTH [place] 00 TWICE A Medical DAY WITH [place] FOOD meloxicam Yes TAKE 1 Univer s (MOBIC) 7.5 6-15 TABLET BY ity of mg tablet 00:00: MOUTH [place] 00 TWICE A Medical DAY WITH [place] FOOD meloxicam Yes TAKE 1 Univer s (MOBIC) 7.5 6-15 TABLET BY ity of mg tablet 00:00: MOUTH [place] 00 TWICE A Medical DAY WITH [place] FOOD meloxicam Yes TAKE 1 Univer s [...] Lisinopril, Yes Univer s Bulk, 100 % 6- ity of Powd 00:00: Medical Branch Lisinopril, Yes Univer s Bulk, 100 % 6- ity of Powd 00:00: Medical Branch Lisinopril, [...] tablet 00 times Medical daily. Branch ciprofloxac 2015-1 Yes 500mg Take 1 Tab Univers in HCl 1-30 by mouth 2 ity of (CIPRO) 500 00:00: (two) [place] mg tablet 00 times Medical daily. Branch Immunizations Ordered Filled Immunization Date Status Comments Sour e Immunization Name Name SARS-COV-2 COVID-19 2020-11-11 Completed Unive rsity of PFIZER VACCINE 00:00:00 [facility] SARS-COV-2 COVID-19 2020-11-11 Completed Unive rsity of PFIZER VACCINE 00:00:00 [facility] SARS-COV-2 COVID-19 2020-11-11 Completed Unive rsity of PFIZER VACCINE 00:00:00 [facility] SARS-COV-2 COVID-19 2020-11-11 Completed Unive rsity of PFIZER VACCINE 00:00:00 [facility] SARS-COV-2 COVID-19 2020-11-11 Completed Unive rsity of PFIZER VACCINE 00:00:00 [facility] SARS-COV-2 COVID-19 2020-11-11 Completed Unive rsity of PFIZER VACCINE 00:00:00 [facility] SARS-COV-2 COVID-19 2020-11-11 Completed Unive rsity of PFIZER VACCINE 00:00:00 [facility] SARS-COV-2 COVID-19 2020-11-11 Completed Unive rsity of PFIZER VACCINE 00:00:00 [facility] SARS-COV-2 COVID-19 2020-11-11 Completed Unive rsity of PFIZER VACCINE 00:00:00 [facility] SARS-COV-2 COVID-19 2020-11-11 Completed Unive rsity of PFIZER VACCINE 00:00:00 [facility] SARS-COV-2 COVID-19 2020-11-11 Completed Unive rsity of PFIZER VACCINE 00:00:00 [facility] SARS-COV-2 COVID-19 2020-11-11 Completed Unive rsity of PFIZER VACCINE 00:00:00 [facility] SARS-COV-2 COVID-19 2020-11-11 Completed Unive rsity of PFIZER VACCINE 00:00:00 [facility] SARS-COV-2 COVID-19 2020-11-11 Completed Unive rsity of PFIZER VACCINE 00:00:00 [facility] SARS-COV-2 COVID-19 2020-10-21 Completed Unive rsity of PFIZER VACCINE 00:00:00 [facility] SARS-COV-2 COVID-19 2020-10-21 Completed Unive rsity of PFIZER VACCINE 00:00:00 [facility] SARS-COV-2 COVID-19 2020-10-21 Completed Unive rsity of PFIZER VACCINE 00:00:00 [facility] SARS-COV-2 COVID-19 2020-10-21 Completed Unive rsity of PFIZER VACCINE 00:00:00 [facility] SARS-COV-2 COVID-19 2020-10-21 Completed Unive rsity of PFIZER VACCINE 00:00:00 [facility] SARS-COV-2 COVID-19 2020-10-21 Completed Unive rsity of PFIZER VACCINE 00:00:00 [facility] SARS-COV-2 COVID-19 2020-10-21 Completed Unive rsity of PFIZER VACCINE 00:00:00 [facility] SARS-COV-2 COVID-19 2020-10-21 Completed Unive rsity of PFIZER VACCINE 00:00:00 [facility] SARS-COV-2 COVID-19 2020-10-21 Completed Unive rsity of PFIZER VACCINE 00:00:00 [facility] [facility] SARS-COV-2 COVID-19 2020-10-21 Completed Unive rsity of PFIZER VACCINE 00:00:00 [facility] SARS-COV-2 COVID-19 2020-10-21 Completed Unive rsity of PFIZER VACCINE 00:00:00 [facility] SARS-COV-2 COVID-19 2020-10-21 Completed Unive rsity of PFIZER VACCINE 00:00:00 [facility] SARS-COV-2 COVID-19 2020-10-21 Completed Unive rsity of PFIZER VACCINE 00:00:00 [facility] SARS-COV-2 COVID-19 2020-10-21 Completed Unive rsity of PFIZER VACCINE 00:00:00 [facility] Vital Signs Vital Name Observation Time Observation Value Comments Source WEIGHT 2021-03-10 62.596 kg 11:08:00 Body height 2022-10-21 149.9 cm University [facility] 15:35:00 [facility] Body weight 2022-10-21 62.596 kg University of 15:35:00 [facility] BMI 2022-10-21 27.87 kg/m2 University of 15:35:00 [facility] Body height 2022-10-04 149.9 cm University of 20:30:00 [facility] Body weight 2022-10-04 62.596 kg University of 20:30:00 [facility] BMI 2022-10-04 27.87 kg/m2 University of 20:30:00 [facility] WEIGHT 2022-04-11 62.8 kg 19:25:00 WEIGHT 2022-04-09 62.795 kg 11:00:00 WEIGHT 2022-04-11 62.8 kg 19:25:00 WEIGHT 2022-04-09 62.795 kg 11:00:00 Systolic blood 2021-07-24 144 mm[Hg] University of pressure 19:28:00 [facility] Diastolic blood 2021-07-24 90 mm[Hg] Marvin o f pressure 19:28:00 [facility] Heart rate 2021-07-24 87 /min University 19:28:00 [facility] Respiratory rate 2021-07-24 18 /min Marvin of 19:28:00 [facility] Oxygen saturation 2021-07-24 97 /min [facility] Arterial blood 19:28:00 [facility] Pulse oximetry [place] Body temperature 2021-07-24 37 Carolann University of 16:20:00 [facility] Body weight 2021-07-24 61.236 kg University of 16:20:00 [facility] BMI 2021-07-24 25.51 kg/m2 University 16:20:00 [facility] HEIGHT 2021-05-04 152.4 cm 17:29:00 WEIGHT 2021-05-04 61.689 kg 17:29:00 HEIGHT 2021-05-04 152.4 cm 17:29:00 WEIGHT 2021-05-04 61.689 kg 17:29:00 WEIGHT 2021-03-10 62.596 kg 11:08:00 Systolic blood 2022-04-13 132 mm[Hg] [facility] pressure 15:18:00 [facility] Diastolic blood 2022-04-13 85 mm[Hg] [...] 74 mm[Hg] [facility] pressure 08:00:00 [facility] Heart rate 2021-05-07 76 /min [...] BP Systolic 2018-02-01 131 mm[Hg] Location: RUE; [facility] 08:36:00 Position: Sitting BP Diastolic 2018-02-01 78 mm[Hg] Location: [facility]; [facility] 08:36:00 Position: Sitting Height 2018-02-01 60 [in_us] [facility] 08:36:00 Weight 2018-02-01 117 [lb_av] [facility] 08:36:00 Body Mass Index 2018-02-01 22.85 kg/m2 [facility] Calculated 08:36:00 Heart Rate 2018-02-01 73 /min Location: R [facility] 08:36:00 Brachial Artery; Procedures Procedure Date / Time Performing Clinician Source Performed MEDICAL RELEASE/CLEARANCE 2023-03-02 05:01:00 Doctor Unassigned, No [facility] AUTHORIZATION FOR RELEASE 2023-01-05 05:01:00 Doctor Unassigned, No [facility] ASSIGNMENT OF BENEFITS 2022-10-04 20:24:45 Doctor Unassigned, No [facility] AUTHORIZATION FOR RELEASE 2022-09-28 06:01:00 Doctor Unassigned, No [facility] POCT-GLUCOSE METER 2022-04-13 15:22:00 [facility] SARS-COV2/RT-PCR ([facility] & 2022-04-13 13:39:00 [facility] POCT-GLUCOSE METER 2022-04-13 11:32:00 [facility] PO[facility]SE [facility]ER 2022-04-13 07:48[facility]00 [facility]OLIC PANEL 2022-04-13 04:31:00 [facility] MAGNESIUM 2022-04-13 04:31:00 [facility] PHOSPHORUS 2022-04-13 04:31:00 [facility] CBC (HEMOGRAM ONLY) 2022-04-13 04:31:00 Gadicherak, [facility] POCT-GLUCOSE METER 2022-04-12 20:50:00 [facility] 2022-04-12 15:42:00 [facility] POCT-GLUCOSE METER 2022-04-12 12:42:00 [facility] POCT-GLUCOSE METER 2022-04-12 08:06:00 [facility] BASIC METABOLIC PANEL 2022-04-12 03:22:00 [facility] 2022-04-12 03:22:00 [facility] 2022-04-12 03:22:00 [facility] CBC (HEMOGRAM ONLY) 2022-04-12 03:22:00 [facility] POCT-GLUCOSE METER 2022-04-11 20:41:00 [facility] POCT-GLUCOSE METER 2022-04-11 15:29:00 [facility] POCT-GLUCOSE METER 2022-04-11 11:06:00 [facility] POCT-GLUCOSE METER 2022-04-11 07:19:00 [facility] BASIC METABOLIC PANEL 2022-04-11 05:21:00 [facility] 2022-04-11 05:21:00 [facility] PHOSPHORUS 2022-04-11 05:21:00 [facility] CBC (HEMOGRAM ONLY) 2022-04-11 05:21:00 [facility] POCT-GLUCOSE METER 2022-04-10 21:16:00 [facility] POCT-[facility]UCOSE METER 2022-04-10 16:48:00 [facility] POCT-GLUCOSE METER 2022-04-10 11:11:00 [facility] POCT-GLUCOSE METER 2022-04-10 07:33:00 [facility] BASIC METABOLIC PANEL 2022-04-10 06:00:00 [facility] MAGNESIUM 2022-04-10 06:00:00 [facility] PHOSPHORUS 2022-04-10 06:00:00 [facility] CBC (HEMOGRAM ONLY) 2022-04-10 06:00:00 [facility] PREPARE LEUKO-REDUCED RBC 2022-04-09 23:54:00 [facility] POCT-GLUCOSE METER 2022-04-09 22:57:00 [facility] POCT-GLUCOSE METER 2022-04-09 17:04:00 [facility] CBC (HEMOGRAM ONLY) 2022-04-09 16:27:00 [facility] POCT-GLUCOSE METER 2022-04-09 11:41:00 [facility] POCT-GLUCOSE METER 2022-04-09 07:35:00 [facility] URINE CULTURE 2022-04-09 05:49:00 [facility] CBC W/PLT COUNT & AUTO 2022-04-09 05:41:00 Carlos Manuel [facility] BASIC METABOLIC PANEL 2022-04-09 05:41:00 [facility] MAGNESIUM 2022-04-09 05:41:00 [facility] PHOSPHORUS 2022-04-09 05:41:00 [facility] CBC W/PLT COUNT & AUTO 2022-04-09 05:41:00 Carlos Manuel [facility] POCT-GLUCOSE METER 2022-04-09 00:05:00 [facility] TRANSFUSE LEUKO-REDUCED 2022-04-08 23:02:00 [facility] RED BLOOD CELLS [place] CBC (HEMOGRAM ONLY) 2022-04-08 21:58:00 Carlos Manuel [facility] BASIC METABOLIC PANEL 2022-04-08 21:58:00 Carlos Manuel [facility] MAGNESIUM 2022-04-08 21:58:00 Carlos Manuel [facility] PHOSPHORUS 2022-04-08 21:58:00 Carlos Manuel [facility] LACTIC ACID, VENOUS 2022-04-08 21:58:00 [facility] DOPPLER LEGS 2022-04-08 19:15:00 [facility] BILATERAL [facility] CBC W/PLT COUNT & AUTO 2022-04-08 17:42:00 [facility] CBC W/PLT COUNT & AUTO 2022-04-08 17:42:00 [facility] DIFFERENTIAL [facility] BLOOD CULTURE 2022-04-08 16:09:[address] [facility] XR CHEST 1 VIEW PORTABLE 2022-04-08 15:24:00 Britney Lloyd [facility] / BEDSIDE [facility] BASIC METABOLIC PANEL 2022-04-08 15:22:00 [facility] LACTIC ACID, VENOUS 2022-04-08 15:22:[address] [facility] POCT-GLUCOSE METER 2022-04-08 15:20:00 Krzysztofjenny [facility] POCT-GLUCOSE METER 2022-04-08 11:31:00 Krzysztofjenny [facility] CT LOWER EXTREMITY 2022-04-08 03:52:00 Joao [facility] WITHOUT IV CONTRAST [facility] XR PELVIS 1 OR 2 VIEWS 2022-04-07 20:23:00 [facility] POCT-GLUCOSE METER 2022-04-07 17:26:00 [facility] TISSUE EXAM 2022-04-07 15:36:00 Heaven Garza [facility] XR PELVIS 1 OR 2 VIEWS 2022-04-07 15:10:00 Heaven Garza [facility] HEMIARTHROPLASTY, HIP 2022-04-07 12:16:00 Heaven Garza [facility] POCT-GLUCOSE METER 2022-04-07 09:49:00 Britney Lloyd [facility] TYPE AND SCREEN, 2022-04-07 09:12:00 Armani Vela [facility] AUTOMATED [place] CBC W/PLT COUNT & AUTO 2022-04-07 06:19:00 Rosa Isela Ching [facility] DIFFERENTIAL [facility] CBC W/PLT COUNT & AUTO 2022-04-07 06:19:00 Rosa Isela Ching [facility] DIFFERENTIAL [facility] URINE CULTURE 2022-04-07 05:15:00 [facility] W/ REFLEX 2022-04-07 05:15:00 [facility] BASIC METABOLIC PANEL 2022-04-07 05:05:00 [facility] SARS-COV2/RT-PCR [facility] & 2022-04-06 21:32:00 Humza [facility] REF LABS) [facility] CT ABDOMEN PELVIS W 2021-07-24 18:00:55 Glenn Paulson [facility] CONTRAST Medical Branch URINALYSIS 2021-07-24 17:39:00 Glenn Paulson [facility] LIPASE 2021-07-24 16:33:00 Singer [facility] COMP. METABOLIC PANEL 2021-07-24 16:33:00 Glenn Paulson [facility] ([id number]) Medical Branch CBC WITH DIFF 2021-07-24 16:33:00 Singer [facility] NOTICE OF PRIVACY 2021-07-24 16:11:11 Doctor Unassigned, No [facility] PRACTICES Name Medical Branch REPORT OF PROCEDURE - 2021-05-06 16:07:30 Juan Alberto Shelton [facility] ENDOSCOPY URL Center ERCP,DIRECT VISUALIZATION 2021-05-06 15:00:00 Juan Alberto Shelton [facility] SPY GLASS Center PROCEDURE W/ C-ARM 2021-05-06 15:00:00 Juan Alberto Shelton [facility] ERCP,BALLOON SWEEPING 2021-05-06 15:00:00 Juan Alberto Shelton [facility] CBC W/PLT COUNT & AUTO 2021-05-06 05:51:00 [facility] DIFFERENTIAL [facility] BASIC METABOLIC PANEL (7) 2021-05-06 05:51:00 [facility] HEPATIC FUNCTION PANEL 2021-05-06 05:51:00 [facility] ABORH, MANUAL 2021-05-05 05:07:00 Zunilda Rubin [facility] TYPE AND SCREEN, 2021-05-05 04:14:00 [facility] PROTHROMBIN TIME/INR 2021-05-05 04:14:00 [facility] SARS-COV2/RT-PCR ([facility] & 2021-05-05 00:18:00 [facility] BLOOD GAS, VENOUS 2021-05-05 00:14:00 Nilton [facility] KETONE, BLOOD 2021-05-05 00:14:00 [facility] HIGH SENSITIVITY TROPONIN 2021-05-05 00:14:00 [facility] ED ECG INTERPRETATION 2021-05-04 23:15:17 [facility] hospital [facility] BASIC METABOLIC PANEL (7) 2021-05-04 21:30:00 Cehrie Faustin [facility] HEPATIC FUNCTION PANEL 2021-05-04 21:30:00 Roxie [facility] AMYLASE 2021-05-04 21:30:00 Dominiczoragalina [facility] LIPASE 2021-05-04 21:30:00 Dominiczoragalina [facility] CBC W/PLT COUNT & AUTO 2021-05-04 19:37:00 Dominiczoragalina [facility] ECG 12-LEAD 2021-05-04 19:22:33 Unknown, Hl7 [facility] POCT-GLUCOSE METER 2021-03-11 08:21:00 Jessica [facility] COMPREHENSIVE METABOLIC 2021-03-11 06:09:00 [facility] REPORT OF PROCEDURE - 2021-03-10 23:43:51 [facility] URL [facility] POCT-GLUCOSE METER 2021-03-10 16:43:00 Paolo [facility] POCT-GLUCOSE METER 2021-03-10 12:45:00 Paolo [facility] [place] ERCP 2021-03-10 12:02:00 Desiree Duggan [facility] ERCP,PAPILLOTOMY 2021-03-10 11:31:00 [facility] PROCEDURE W/ C-ARM 2021-03-10 11:31:00 Santiagovan [facility] ERCP,BALLOON SWEEPING 2021-03-10 11:31:00 [facility] POCT-GLUCOSE METER 2021-03-10 09:07:00 Paolo [facility] CBC (HEMOGRAM ONLY) 2021-03-10 04:50:00 Villalba [facility] COMPREHENSIVE METABOLIC 2021-03-10 04:50:00 Villalba [facility] HEMOGLOBIN A1C 2021-03-10 04:50:00 [facility] POCT-GLUCOSE METER 2021-03-09 23:54:00 [facility]1983[facility] [place] SARS-COV2/RT-PCR ([facility] & 2021-03-09 20:13:00 Desiree Dugganroz [facility] REF LABS) Center POCT-GLUCOSE METER 2021-03-09 17:22:00 [facility] [place] MR ABDOMEN WITHOUT IV 2021-03-09 15:38:00 [facility] CONTRAST MRCP Center POCT-GLUCOSE METER 2021-03-09 12:22:00 [facility] [place] URINALYSIS W/ REFLEX 2021-03-09 10:56:00 [facility] URINE CULTURE Center HEPATIC FUNCTION PANEL 2021-03-09 05:25:00 [facility] PROTHROMBIN TIME/INR 2021-03-09 05:25:00 [facility] MAGNESIUM 2021-03-09 05:25:00 [facility] BASIC METABOLIC PANEL (7) 2021-03-09 05:25:00 [facility] CBC W/PLT COUNT & AUTO 2021-03-09 05:25:00 [facility] HEMOGLOBIN A1C 2021-03-09 05:25:00 [facility] MRI Brain wo contrast 2018-02-08 00:00:[id number] Brain w/wo contrast 2018-02-01 00:00:00 [id number] Plan of Care Planned Activity Planned Date Details Comments Source Future Scheduled 2023-05-13 INFLUENZA VACCINE [facility] Test 00:00:00 (Season Ended) [code = [facility] INFLUENZA VACCINE (Season Ended)] Future Scheduled 2023-05-13 INFLUENZA VACCINE [facility] 00:00:00 (Season Ended) [code = [facility] INFLUENZA VACCINE (Season Ended)] Future Scheduled 2023-05-13 [...] Test 00:00:00 measurement (procedure) [facility] [code = [id number]] Future Scheduled 2021-09-[address] [facility] 00:00:00 measurement (procedure) [facility] [code = 67373125] Future Scheduled 2021-09-[address] [facility] 00:00:00 measurement (procedure) [facility] [code = 47388425] Future Scheduled 2021-09-[address] [facility] 00:00:00 measurement (procedure) [facility] [code = 31910072] Future Scheduled 2021-09-[address] [facility] Test 00:00:00 measurement (procedure) [facility] [code = 55867765] Future Scheduled 2021-09-[address] [facility] 00:00:00 measurement (procedure) [facility] [code = 36509236] Future Scheduled 2021-09-[address] [facility] 00:00:00 measurement (procedure) [facility] [code = 64196806] Future Scheduled 2021-09-[address] [facility] 00:00:00 measurement (procedure) [facility] [code = 25728445] Future Scheduled 2021-09-[address] [facility] 00:00:00 measurement (procedure) [facility] [code = 20386878] Future Scheduled 2021-09-[address] [facility] Test 00:00:00 measurement (procedure) [facility] [code = 48074319] Future Scheduled 2021-09-[address] [facility] 00:00:00 measurement (procedure) [facility] [code = 33061962] Future Scheduled 2021-09-[address] [facility] 00:00:00 measurement (procedure) [facility] [code = 33295148] Future Scheduled 2021-09-[address] [facility] 00:00:00 measurement (procedure) [facility] [code = 27109399] Future Scheduled 2021-09-[address] [facility] 00:00:00 measurement (procedure) [facility] [code = 45107786] Future Scheduled 2021-05-13 INFLUENZA VACCINE (#1) [facility] [...] [facility] - [id number]_[facility] PCV13) [code = PNEUMOCOCCAL 65+ YRS (1 of 1 - [id number]_Icicuck PCV13)] Future Scheduled 2013 PNEUMOCOCCAL 65+ YRS ([address] [facility] Test 00:00:00 of 1 - [id number]_Yuauyiv [facility] PCV13) [code = PNEUMOCOCCAL 65+ YRS (1 of 1 - [id number]_Czmbqkd PCV13)] Future Scheduled 2013 PNEUMOCOCCAL 65+ YRS ([address] [facility] Test 00:00:00 of 1 - XBDM07_Xprmqew Medica l Center PCV13) [code = PNEUMOCOCCAL 65+ YRS (1 of 1 - [id number]_Mncxefb PCV13)] Future Scheduled 2013 PNEUMOCOCCAL 65+ YRS ([address] [facility] Test 00:00:00 of 1 - FOUD26_Nmgnops Medica l Center PCV13) [code = PNEUMOCOCCAL 65+ YRS (1 of 1 - AHZM69_Vstruan PCV13)] Future Scheduled 2013 PNEUMOCOCCAL 65+ YRS [...] 00:00:00 examination Medical Center (regime/therapy) [code = 442272183] Future Scheduled 1958 Urine screening for [facility] 00:00:00 protein (procedure) Medical Center [code = 908972057] Future Scheduled 1958 DIABETIC EYE EXAM [code [facility] 00:00:00 = DIABETIC EYE EXAM] Medical Center Future Scheduled [address] [facility] 00:00:00 examination Medical Center (regime/therapy) [code = 183179044] Future Scheduled 1958 Urine screening for [facility] 00:00:00 protein (procedure) Medical Center [code = 829807076] Future Scheduled 1958 DIABETIC EYE EXAM [code [facility] 00:00:00 = DIABETIC EYE EXAM] Medical Center Future Scheduled [address] [facility] [facility] 00:00:00 examination Medical Center (regime/therapy) [code = 145480409] Future Scheduled 1958 Urine screening for [facility] 00:00:00 protein (procedure) Medical Center [code = 836750244] Future Scheduled 1958 DIABETIC EYE EXAM [code [facility] 00:00:00 = DIABETIC EYE EXAM] Medical Center Future Scheduled [address] [facility] 00:00:00 examination Medical Center (regime/therapy) [code = 244528668] Future Scheduled 1958 Urine screening for [facility] 00:00:00 protein (procedure) Medical Center [code = 047807707] Future Scheduled 1958 DIABETIC EYE EXAM [code [facility] 00:00:00 = DIABETIC EYE EXAM] Medical Center Future Scheduled [address] [facility] 00:00:00 examination Medical Center (regime/therapy) [code = 088994462] Future Scheduled 1958 Urine screening for [facility] 00:00:00 protein (procedure) Medical Center [code = 722830629] Future Scheduled 1958 DIABETIC EYE EXAM [code [facility] 00:00:00 = DIABETIC EYE EXAM] Medical Center Future Scheduled [address] [facility] 00:00:00 examination Medical Center (regime/therapy) [code = 943236818] Future Scheduled 1958 Urine screening for [facility] 00:00:00 protein (procedure) Medical Center [code = 801844270] Future Scheduled 1958 DIABETIC EYE EXAM [code [facility] 00:00:00 = DIABETIC EYE EXAM] Medical Center Future Scheduled [address] [facility] 00:00:00 examination Medical Center (regime/therapy) [code = 298548140] Future Scheduled 1958 Urine screening for [facility] 00:00:00 protein (procedure) Medical Center [code = 407167826] Future Scheduled 1958 DIABETIC EYE EXAM [code [facility] 00:00:00 = DIABETIC EYE EXAM] Medical Center Future Scheduled [address] [facility] 00:00:00 examination Medical Center (regime/therapy) [code = 644587909] Future Scheduled 1958 Urine screening for [facility] 00:00:00 protein (procedure) Medical Center [code = 127289092] Future Scheduled 1958 DIABETIC EYE EXAM [code [facility] 00:00:00 = DIABETIC EYE EXAM] Medical Center Future Scheduled [address] [facility] 00:00:00 examination Medical Center (regime/therapy) [code = 083427238] Future Scheduled 1958 Urine screening for [facility] 00:00:00 protein (procedure) Medical Center [code = 392551073] Future Scheduled 1958 DIABETIC EYE EXAM [code [facility] 00:00:00 = DIABETIC EYE EXAM] Medical Center Future Scheduled [address] [facility] 00:00:00 examination Medical Center (regime/therapy) [code = 689255411] Future Scheduled 1958 Urine screening for [facility] 00:00:00 protein (procedure) Medical Center [code = 439106731] Future Scheduled 1958 DIABETIC EYE EXAM [code [facility] 00:00:00 = DIABETIC EYE EXAM] Medical Center Future Scheduled [address] [facility] 00:00:00 examination Medical Center (regime/therapy) [code = 222361130] Future Scheduled 1958 Urine screening for [facility] 00:00:00 protein (procedure) Medical Center [code = 930588329] Future Scheduled 1958 DIABETIC EYE EXAM [code [facility] 00:00:00 = DIABETIC EYE EXAM] Medical Center Future Scheduled [address] [facility] 00:00:00 examination Medical Center (regime/therapy) [code = 366360099] Future Scheduled 1958 Urine screening for [facility] 00:00:00 protein (procedure) Medical Center [code = 434846838] Future Scheduled 1958 DIABETIC EYE EXAM [code [facility] 00:00:00 = DIABETIC EYE EXAM] Medical Center Future Scheduled [address] [facility] 00:00:00 examination Medical Center (regime/therapy) [code = 526173985] Future Scheduled 1958 Urine screening for [facility] 00:00:00 protein (procedure) Medical Center [code = 734471279] Future Scheduled 1958 DIABETIC EYE EXAM [code [facility] 00:00:00 = DIABETIC EYE EXAM] Medical Center Future Scheduled [address] [facility] 00:00:00 examination Medical Center (regime/therapy) [code = 796360335] Future Scheduled 1958 Urine screening for [facility] 00:00:00 protein (procedure) Medical Center [code = 823214137] Future Scheduled 1954 PNEUMOCOCCAL 65+ YRS (1 [...] breast Medical C enter (procedure) [code = 283052125] Future Scheduled 1948 Screening for malignant [facility] Test 00:00:00 neoplasm of colon Medical Ce nter (procedure) [code = 143316997] Future Scheduled 1948 Screening for malignant [facility] Test 00:00:00 neoplasm of breast Medical C enter (procedure) [code = 377883824] Future Scheduled 1948 Screening for malignant [facility] Test 00:00:00 neoplasm of colon Medical Ce nter (procedure) [code = 547504901] Future Scheduled 1948 Screening for malignant [facility] Test 00:00:00 neoplasm of breast Medical C enter (procedure) [code = 664250502] Future Scheduled 1948 Screening for malignant [facility] Test 00:00:00 neoplasm of colon Medical Ce nter (procedure) [code = 066846068] Future Scheduled 1948 Screening for malignant [facility] Test 00:00:00 neoplasm of breast Medical C enter (procedure) [code = [id number]] Future Scheduled 1948 Screening for malignant [facility] 00:00:00 neoplasm of colon Medical Ce nter (procedure) [code = 000632048] Future Scheduled 1948 Screening for malignant [facility] 00:00:00 neoplasm of breast Medical C enter (procedure) [code = 665553464] Future Scheduled 1948 CT Colonography (combo) [facility] 00:00:00 [code = CT Colonography [facility] (combo)] Future Scheduled 1948 Screening for malignant [facility] 00:00:00 neoplasm of colon Medical Ce nter (procedure) [code = 152466903] Future Scheduled 1948 Screening for malignant [facility] 00:00:00 neoplasm of colon Medical Ce nter (procedure) [code = 244157295] Future Scheduled 1948 DXA SCAN [code = DXA [facility] 00:00:00 SCAN] [facility] Future Scheduled 1948 Screening for malignant [facility] 00:00:00 neoplasm of colon Medical Ce nter (procedure) [code = 550727363] Future Scheduled 1948 Screening for malignant [facility] 00:00:00 neoplasm of colon Medical Ce nter (procedure) [code = 615223029] Future Scheduled 1948 Sigmoidoscopy [code = [facility]] [facility] Future Scheduled 1948 Screening for malignant [facility] 00:00:00 neoplasm of breast Medical C enter (procedure) [code = 196465590] Future Scheduled 1948 CT Colonography (combo) [facility] 00:00:00 [code = CT Colonography [facility] (combo)] Future Scheduled 1948 Screening for malignant [facility] 00:00:00 neoplasm of colon Medical Ce nter (procedure) [code = 594986328] Future Scheduled 1948 Screening for malignant [facility] 00:00:00 neoplasm of colon Medical Ce nter (procedure) [code = 653442007] Future Scheduled 1948 DXA SCAN [code = DXA [facility] 00:00:00 SCAN] [facility] Future Scheduled 1948 Screening for malignant [facility] 00:00:00 neoplasm of colon Medical Ce nter (procedure) [code = 992753805] Future Scheduled 1948 Screening for malignant [facility] 00:00:00 neoplasm of colon Medical Ce nter (procedure) [code = 851063641] Future Scheduled 1948 Sigmoidoscopy [code = [facility]] [facility] Future Scheduled 1948 Screening for malignant [facility] 00:00:00 neoplasm of breast Medical C enter (procedure) [code = 247824935] Future Scheduled 1948 CT Colonography (combo) [facility] 00:00:00 [code = CT Colonography [facility] (combo)] Future Scheduled 1948 Screening for malignant [facility] 00:00:00 neoplasm of colon Medical Ce nter (procedure) [code = 447979224] Future Scheduled 1948 Screening for malignant [facility] 00:00:00 neoplasm of colon Medical Ce nter (procedure) [code = 330135018] Future Scheduled 1948 DXA SCAN [code = DXA [facility] 00:00:00 SCAN] [facility] Future Scheduled 1948 Screening for malignant [facility] 00:00:00 neoplasm of colon Medical Ce nter (procedure) [code = 425778179] Future Scheduled 1948 Screening for malignant [facility] 00:00:00 neoplasm of colon Medical Ce nter (procedure) [code = 287139500] Future Scheduled 1948 Sigmoidoscopy [code = [facility] 00:[facility] S[facility]oidoscopy] [facility] Future Scheduled 1948 Screening for malignant [facility] 00:00:00 neoplasm of breast Medical C enter (procedure) [code = 554139164] Future Scheduled 1948 CT Colonography (combo) [facility] 00:00:00 [code = CT Colonography [facility] (combo)] Future Scheduled 1948 Screening for malignant [facility] 00:00:00 neoplasm of colon Medical Ce nter (procedure) [code = 789365716] Future Scheduled 1948 Screening for malignant [facility] 00:00:00 neoplasm of colon Medical Ce nter (procedure) [code = 250918056] Future Scheduled 1948 DXA SCAN [code = DXA [facility] 00:00:00 SCAN] [facility] Future Scheduled 1948 Screening for malignant [facility] 00:00:00 neoplasm of colon Medical Ce nter (procedure) [code = 033047882] Future Scheduled 1948 Screening for malignant [facility] 00:00:00 neoplasm of colon Medical Ce nter (procedure) [code = 015666793] Future Scheduled 1948 Sigmoidoscopy [code = [facility] 00:[facility] S[facility]] [facility] Future Scheduled 1948 Screening for malignant [facility] 00:00:00 neoplasm of breast Medical C enter (procedure) [code = 580848619] Future Scheduled 1948 CT Colonography (combo) [facility] 00:00:00 [code = CT Colonography [facility] (combo)] Future Scheduled 1948 Screening for malignant [facility] 00:00:00 neoplasm of colon Medical Ce nter (procedure) [code = 792087298] Future Scheduled 1948 Screening for malignant [facility] 00:00:00 neoplasm of colon Medical Ce nter (procedure) [code = 686026007] Future Scheduled 1948 DXA SCAN [code = DXA [facility] 00:00:00 SCAN] [facility] Future Scheduled 1948 Screening for malignant [facility] 00:00:00 neoplasm of colon Medical Ce nter (procedure) [code = 788108350] Future Scheduled 1948 Screening for malignant [facility] 00:00:00 neoplasm of colon Medical Ce nter (procedure) [code = 499952990] Future Scheduled 1948 Sigmoidoscopy [code = [facility] S[facility]] [facility] Future Scheduled 1948 Screening for malignant [facility] 00:00:00 neoplasm of breast Medical C enter (procedure) [code = 736559554] Future Scheduled 1948 CT Colonography (combo) [facility] 00:00:00 [code = CT Colonography [facility] (combo)] Future Scheduled 1948 Screening for malignant [facility] 00:00:00 neoplasm of colon Medical Ce nter (procedure) [code = 643807653] Future Scheduled 1948 Screening for malignant [facility] 00:00:00 neoplasm of colon Medical Ce nter (procedure) [code = 844883644] Future Scheduled 1948 DXA SCAN [code = DXA [facility] 00:00:00 SCAN] [facility] Future Scheduled 1948 Screening for malignant [facility] 00:00:00 neoplasm of colon Medical Ce nter (procedure) [code = 245884920] Future Scheduled 1948 Screening for malignant [facility] 00:00:00 neoplasm of colon Medical Ce nter (procedure) [code = 646343996] Future Scheduled 1948 Sigmoidoscopy [code = [facility] 00:[facility] S[facility]oidoscopy] [facility] Future Scheduled 1948 Screening for malignant [facility] 00:00:00 neoplasm of breast Medical C enter (procedure) [code = 316485454] Future Scheduled 1948 CT Colonography (combo) [facility] 00:00:00 [code = CT Colonography [facility] (combo)] Future Scheduled 1948 Screening for malignant [facility] 00:00:00 neoplasm of colon Medical Ce nter (procedure) [code = 406480679] Future Scheduled 1948 Screening for malignant [facility] 00:00:00 neoplasm of colon Medical Ce nter (procedure) [code = 602669133] Future Scheduled 1948 DXA SCAN [code = DXA [facility] 00:00:00 SCAN] [facility] Future Scheduled 1948 Screening for malignant [facility] 00:00:00 neoplasm of colon Medical Ce nter (procedure) [code = 078130959] Future Scheduled 1948 Screening for malignant [facility] 00:00:00 neoplasm of colon Medical Ce nter (procedure) [code = 580365472] Future Scheduled 1948 Sigmoidoscopy [code = [facility] 00:[facility] S[facility]oidoscopy] [facility] Future Scheduled 1948 Screening for malignant [facility] 00:00:00 neoplasm of breast Medical C enter (procedure) [code = 736148148] Future Scheduled 1948 CT Colonography (combo) [facility] 00:00:00 [code = CT Colonography [facility] (combo)] Future Scheduled 1948 Screening for malignant [facility] 00:00:00 neoplasm of colon Medical Ce nter (procedure) [code = 679580622] Future Scheduled 1948 Screening for malignant [facility] 00:00:00 neoplasm of colon Medical Ce nter (procedure) [code = 158423389] Future Scheduled 1948 DXA SCAN [code = DXA [facility] 00:00:00 SCAN] [facility] Future Scheduled 1948 Screening for malignant [facility] 00:00:00 neoplasm of colon Medical Ce nter (procedure) [code = 432034443] Future Scheduled 1948 Screening for malignant [facility] 00:00:00 neoplasm of colon Medical Ce nter (procedure) [code = 464136530] Future Scheduled 1948 Sigmoidoscopy [code = [facility] 00:[facility] S[facility]oidoscopy] [facility] Future Scheduled 1948 Screening for malignant [facility] 00:00:00 neoplasm of breast Medical C enter (procedure) [code = 625815564] Future Scheduled 1948 CT Colonography (combo) [facility] 00:00:00 [code = CT Colonography [facility] (combo)] Future Scheduled 1948 Screening for malignant [facility] 00:00:00 neoplasm of colon Medical Ce nter (procedure) [code = 677478061] Future Scheduled 1948 Screening for malignant [facility] 00:00:00 neoplasm of colon Medical Ce nter (procedure) [code = 987625127] Future Scheduled 1948 DXA SCAN [code = DXA [facility] 00:00:00 SCAN] [facility] Future Scheduled 1948 Screening for malignant [facility] 00:00:00 neoplasm of colon Medical Ce nter (procedure) [code = 286774928] Future Scheduled 1948 Screening for malignant [facility] 00:00:00 neoplasm of colon Medical Ce nter (procedure) [code = 609966089] Future Scheduled 1948 Sigmoidoscopy [code = [facility] 00:[facility] S[facility]oid[facility]] [facility] Future Scheduled 1948 Sigmoidoscopy [code = [facility] 00:[facility] S[facility]] [facility] Future Scheduled 1948 Screening for malignant [facility] 00:00:00 neoplasm of breast Medical C enter (procedure) [code = 310835186] Future Scheduled 1948 CT Colonography (combo) [facility] 00:00:00 [code = CT Colonography [facility] (combo)] Future Scheduled 1948 Screening for malignant [facility] 00:00:00 neoplasm of colon Medical Ce nter (procedure) [code = 603969827] Future Scheduled 1948 Screening for malignant [facility] 00:00:00 neoplasm of colon Medical Ce nter (procedure) [code = 208019640] Future Scheduled 1948 DXA SCAN [code = DXA [facility] 00:00:00 SCAN] [facility] Future Scheduled 1948 Screening for malignant [facility] 00:00:00 neoplasm of colon Medical Ce nter (procedure) [code = 557232791] Future Scheduled 1948 Screening for malignant [facility] 00:00:00 neoplasm of colon Medical Ce nter (procedure) [code = 061918525] Future Scheduled 1948 Screening for malignant [facility] 00:00:00 neoplasm of colon Medical Ce nter (procedure) [code = 694878128] Future Scheduled 1948 Screening for malignant [facility] 00:00:00 neoplasm of breast Medical C enter (procedure) [code = 743052810] Future Scheduled 1948 CT Colonography (combo) [facility] 00:00:00 [code = CT Colonography [facility] (combo)] Future Scheduled 1948 Screening for malignant [facility] 00:00:00 neoplasm of colon Medical Ce nter (procedure) [code = 680551263] Future Scheduled 1948 Screening for malignant [facility] 00:00:00 neoplasm of breast Medical C enter (procedure) [code = 293676856] Future Scheduled 1948 CT Colonography (combo) [facility] 00:00:00 [code = CT Colonography [facility] (combo)] Future Scheduled 1948 Screening for malignant [facility] 00:00:00 neoplasm of colon Medical Ce nter (procedure) [code = 761360236] Future Scheduled 1948 Screening for malignant [facility] 00:00:00 neoplasm of colon Medical Ce nter (procedure) [code = 429778308] Future Scheduled 1948 DXA SCAN [code = DXA [facility] 00:00:00 SCAN] [facility] Future Scheduled 1948 Screening for malignant [facility] 00:00:00 neoplasm of colon Medical Ce nter (procedure) [code = 133597506] Future Scheduled 1948 Screening for malignant [facility] 00:00:00 neoplasm of colon Medical Ce nter (procedure) [code = 979332039] Future Scheduled 1948 Sigmoidoscopy [code = [facility] S[facility]] [facility] Future Scheduled 1948 Screening for malignant [facility] 00:00:00 neoplasm of colon Medical Ce nter (procedure) [code = 799855769] Future Scheduled 1948 DXA SCAN [code = DXA [facility] 00:00:00 SCAN] [facility] Future Scheduled 1948 Screening for malignant [facility] 00:00:00 neoplasm of colon Medical Ce nter (procedure) [code = 715133805] Future Scheduled 1948 Sigmoidoscopy [code = [facility] 00:[facility] Sigmoidoscopy] [facility] Future Scheduled 1948 Screening for malignant [facility] 00:00:00 neoplasm of colon Medical Ce nter (procedure) [code = 552466709] Future Scheduled 1948 Sigmoidoscopy [code = [facility] 00:[facility] S[facility]oidoscopy] [facility] Future Scheduled 1948 Screening for malignant [facility] 00:00:00 neoplasm of breast Medical C enter (procedure) [code = 614834214] Future Scheduled 1948 CT Colonography (combo) [facility] 00:00:00 [code = CT Colonography [facility] (combo)] Future Scheduled 1948 Screening for malignant [facility] 00:00:00 neoplasm of colon Medical Ce nter (procedure) [code = 643261457] Future Scheduled 1948 Screening for malignant [facility] 00:00:00 neoplasm of colon Medical Ce nter (procedure) [code = 308079165] Future Scheduled 1948 DXA SCAN [code = DXA [facility] 00:00:00 SCAN] [facility] Future Scheduled 1948 Screening for malignant [facility] 00:00:00 neoplasm of colon Medical Ce nter (procedure) [code = 119139567] Future Scheduled 1948 Screening for malignant [facility] 00:00:00 neoplasm of colon Medical Ce nter (procedure) [code = 544848663] Future Scheduled 1948 Sigmoidoscopy [code = [facility]] [facility] Future Scheduled 1948 Screening for malignant [facility] 00:00:00 neoplasm of breast Medical C enter (procedure) [code = 437940378] Future Scheduled 1948 CT Colonography (combo) [facility] 00:00:00 [code = CT Colonography [facility] (combo)] Future Scheduled 1948 Screening for malignant [facility] 00:00:00 neoplasm of colon Medical Ce nter (procedure) [code = 464754912] Future Scheduled 1948 Screening for malignant [facility] 00:00:00 neoplasm of colon Medical Ce nter (procedure) [code = 309417154] Future Scheduled 1948 DXA SCAN [code = DXA [facility] 00:00:00 SCAN] [facility] Future Scheduled 1948 Screening for malignant [facility] 00:00:00 neoplasm of colon Medical Ce nter (procedure) [code = 583662575] Future Scheduled 1948 Screening for malignant [facility] 00:00:00 neoplasm of colon Medical Ce nter (procedure) [code = 770460407] Future Scheduled 1948 Sigmoidoscopy [code = [facility]] [facility] Future Scheduled 1948 Screening for malignant [facility] 00:00:00 neoplasm of breast Medical C enter (procedure) [code = 096812361] Future Scheduled 1948 CT Colonography (combo) [facility] 00:00:00 [code = CT Colonography [facility] (combo)] Future Scheduled 1948 Screening for malignant [facility] 00:00:00 neoplasm of colon Medical Ce nter (procedure) [code = 371490069] Future Scheduled 1948 Screening for malignant [facility] 00:00:00 neoplasm of colon Medical Ce nter (procedure) [code = 336002955] Future Scheduled 1948 DXA SCAN [code = DXA [facility] 00:00:00 SCAN] [facility] Future Scheduled 1948 Screening for malignant [facility] 00:00:00 neoplasm of colon Medical Ce nter (procedure) [code = 585691999] Future Scheduled 1948 Screening for malignant [facility] 00:00:00 neoplasm of colon Medical Ce nter (procedure) [code = 408510294] Future Scheduled 1948 Sigmoidoscopy [code = [facility]] [facility] Future Scheduled 1948 Screening for malignant [facility] 00:00:00 neoplasm of breast Medical C enter (procedure) [code = 697181137] Future Scheduled 1948 CT Colonography (combo) [facility] 00:00:00 [code = CT Colonography [facility] (combo)] Future Scheduled 1948 Screening for malignant [facility] 00:00:00 neoplasm of colon Medical Ce nter (procedure) [code = 453969427] Future Scheduled 1948 Screening for malignant [facility] 00:00:00 neoplasm of colon Medical Ce nter (procedure) [code = 728979541] Future Scheduled 1948 Screening for malignant [facility] 00:00:00 neoplasm of breast Medical C enter (procedure) [code = 323406864] Future Scheduled 1948 DXA SCAN [code = DXA [facility] 00:00:00 SCAN] [facility] Future Scheduled 1948 Screening for malignant [facility] 00:00:00 neoplasm of colon Medical Ce nter (procedure) [code = 963246658] Future Scheduled 1948 Screening for malignant [facility] 00:00:00 neoplasm of colon Medical Ce nter (procedure) [code = 631983255] Future Scheduled 1948 Sigmoidoscopy [code = [facility]] [facility] Future Scheduled 1948 CT Colonography (combo) [facility] 00:00:00 [code = CT Colonography [facility] (combo)] Future Scheduled 1948 Screening for malignant [facility] 00:00:00 neoplasm of breast Medical C enter (procedure) [code = 349865042] Future Scheduled 1948 CT Colonography (combo) [facility] 00:00:00 [code = CT Colonography [facility] (combo)] Future Scheduled 1948 Screening for malignant [facility] 00:00:00 neoplasm of colon Medical Ce nter (procedure) [code = 526983883] Future Scheduled 1948 Screening for malignant [facility] 00:00:00 neoplasm of colon Medical Ce nter (procedure) [code = 156759704] Future Scheduled 1948 DXA SCAN [code = DXA [facility] 00:00:00 SCAN] [facility] Future Scheduled 1948 Screening for malignant [facility] 00:00:00 neoplasm of colon Medical Ce nter (procedure) [code = 078354598] Future Scheduled 1948 Screening for malignant [facility] 00:00:00 neoplasm of colon Medical Ce nter (procedure) [code = 572977527] Future Scheduled 1948 Screening for malignant [facility] 00:00:00 neoplasm of colon Medical Ce nter (procedure) [code = 750822753] Future Scheduled 1948 Sigmoidoscopy [code = [facility]] [facility] Future Scheduled 1948 Screening for malignant [facility] 00:00:00 neoplasm of colon Medical Ce nter (procedure) [code = 016150882] Future Scheduled 1948 Screening for malignant [facility] 00:00:00 neoplasm of breast Medical C enter (procedure) [code = 341059484] Future Scheduled 1948 CT Colonography (combo) [facility] 00:00:00 [code = CT Colonography [facility] (combo)] Future Scheduled 1948 Screening for malignant [facility] 00:00:00 neoplasm of colon Medical Ce nter (procedure) [code = 963777238] Future Scheduled 1948 Screening for malignant [facility] 00:00:00 neoplasm of colon Medical Ce nter (procedure) [code = 998946096] Future Scheduled 1948 DXA SCAN [code = DXA [facility] 00:00:00 SCAN] [facility] Future Scheduled 1948 Screening for malignant [facility] 00:00:00 neoplasm of colon Medical Ce nter (procedure) [code = 116948326] Future Scheduled 1948 Screening for malignant [facility] 00:00:00 neoplasm of colon Medical Ce nter (procedure) [code = 010500829] Future Scheduled 1948 Sigmoidoscopy [code = [facility]] [facility] Future Scheduled 1948 DXA SCAN [code = DXA [facility] 00:00:00 SCAN] [facility] Future Scheduled 1948 Screening for malignant [facility] 00:00:00 neoplasm of breast Medical C enter (procedure) [code = 142418636] Future Scheduled 1948 CT Colonography (combo) [facility] 00:00:00 [code = CT Colonography [facility] (combo)] Future Scheduled 1948 Screening for malignant [facility] 00:00:00 neoplasm of colon Medical Ce nter (procedure) [code = 205727359] Future Scheduled 1948 Screening for malignant [facility] 00:00:00 neoplasm of colon Medical Ce nter (procedure) [code = 321341798] Future Scheduled 1948 Screening for malignant [facility] 00:00:00 neoplasm of colon Medical Ce nter (procedure) [code = 211658044] Future Scheduled 1948 DXA SCAN [code = DXA [facility] 00:00:00 SCAN] [facility] Future Scheduled 1948 Screening for malignant [facility] 00:00:00 neoplasm of colon Medical Ce nter (procedure) [code = 932369846] Future Scheduled 1948 Screening for malignant [facility] 00:00:00 neoplasm of colon Medical Ce nter (procedure) [code = 357463070] Future Scheduled 1948 Sigmoidoscopy [code [facility]] [facility] Encounters Start End Encounter Admission Attending Care Care Encounter Source Date/Time Date/Time Type Type Clinicians Facility Department ID 2022-04-06 [facility] [id number] [facility] 16:46:00 Encounter Jessica Gomez [facility] 2021-06-21 Inpatient ER ADIO, [facility] [id number] [facility] 02:39:12 TITILOLA 2023-03-02 2023-03-02 Orders Doctor COLLADO [id number] [id number] [facility] 00:00:00 00:00:00 Only Unassigned, ARIS 350.1.13.10 ity of [place] [facility] 4.2.7.2.686 Arnie as [phone] [address] 2023-01-05 2023-01-05 Orders Doctor HEAVEN [id number] [facility] 00:00:00 00:00:00 Only Unassigned, ARIS 350.1.13.10 ity of [place] [facility] 4.2.7.2.686 Arnie as [id number] [address] 2022-10-27 2022-10-27 Outpatient R MAIRA [facility] [id number] Univers 14:45:00 14:45:00 BALDOMERO reynolds [facility] 2022-10-21 2022-10-21 Outpatient R MAIRA [facility] [id number] Univers 09:45:00 10:16:42 BALDOMERO reynolds [facility] 2022-10-21 2022-10-21 Office Maira [facility] [id number] [facility] 09:45:00 10:16:42 Visit Baldomero ANGLIN 350.1.13.10 it y of [place] 4.2.7.2.686 Arnie as DERIK?BLEA [id number] [place] jermaine JOHNSON [address] [place] [address] OFFICE [facility] 2022-10-13 2022-10-13 Outpatient R MAIRA [facility] [id number] Univers 15:30:00 15:30:00 BALDOMERO reynolds [facility] 2022-10-11 2022-10-11 [facility]phone [facility] [id number] Univers 00:00:00 00:00:00 Baldomero ANGLIN 350.1.13.10 it y of [place] 4.2.7.2.686 Arnie as DERIK?BLEA [phone] Tx jermaine JOHNSON [address] [place] [address] OFFICE [facility] 2022-10-08 2022-10-08 Telephone Maira [facility] 1.2.840.114 [id number] Univers 00:00:00 00:00:00 Baldomero ANGLIN 350.1.13.10 it y of [place] 4.2.7.2.686 Arnie as DERIK?BLEA [id number] Tx jermaine JOHNSON [address] [place] [address] OFFICE [facility] 2022-10-06 2022-10-06 Telephone Maira [facility] [id number] [id number] Univers 00:00:00 00:00:00 Baldomero ANGLIN 350.1.13.10 it y of [place] 4.2.7.2.686 Arnie as DERIK?BLEA [id number] Tx jermaine JOHNSON [address] [place] [address] OFFICE [facility] 2022-10-04 2022-10-04 [facility], Ang - Db [facility] 1.2.840.1 [id number] Univers 15:15:00 15:30:00 Visit Baldomero Rao HEALTH 350.1.13.10 ity of [place] 4.2.7.2.686 Arnie as DERIK?BLEA [phone] Me jermaine JOHNSON [address] MEDICAL OFFICE [facility] 2022-10-04 2022-10-04 Outpatient R [facility]IRAST. EL[facility]ETH [facility] [id number] Univers 14:30:00 15:22:10 BALDOMERO ity of [facility] 2022-10-04 2022-10-04 Office [facility] [id number] Univers 14:30:00 15:22:10 Visit Baldomero Camacho [facility] 350.1.13.10 it y [facility] 4.2.7.2.686 Arnie as DERIK?BLEA [phone] Me debiangelito JOHNSON [address] [place] MEDICAL OFFICE [facility] 2022-10-04 2022-10-04 Orders Doctor HEAVEN [id number] Univers 00:00:00 00:00:00 Only Unassigned, ARIS 350.1.13.10 ity of [facility] 4.2.7.2.686 Arnie as [phone] [address] 2022-10-01 2022-10-01 Telephone [facility] [id number] Univers 00:00:00 00:00:00 Baldomero Camacho [facility] 350.1.13.10 it y of [place] 4.2.7.2.686 Arnie as DERIK?BLEA [phone] Me jermaine JOHNSON 044 [facility] OFFICE [facility] 2022-09-28 2022-09-28 Orders Doctor HEAVEN [id number] Univers 00:00:00 00:00:00 Only Unassigned, ARIS 350.1.13.10 ity of [facility] 4.2.7.2.686 Arnie as [phone] [address] 2022-04-06 2022-04-13 Hospital ER Jessica Boone [facility] [id number] [facility] 16:50:00 19:40:00 Encounter Rosa Isela Ching [facility] 2022-04-06 2022-04-13 Inpatient ER [facility] Surgery [id number] [facility] 16:50:00 19:40:00 [place] 2022-04-07 2022-04-07 Anesthesia Eryn [facility] [id number] 12:31:00 16:21:00 Event Lili Patel [facility] 2022-04-07 2022-04-07 Surgery Greg, [facility] [id number] 12:00:00 14:51:00 Heaven Carbajal [facility] 2022-04-07 2022-04-07 Travel [facility] [id number] [facility] 00:00:00 00:00:00 [facility] 2021-07-24 2021-07-24 Emergency X [facility] ERT [id number] Univers 10:12:00 14:31:00 GLENN reynolds [facility] 2021-07-24 2021-07-24 Emergency [facility] [id number] Univers 10:12:00 14:31:00 Glenn DONATO 350.1.13.10 i ty [facility] 4.2.7.2.686 [facility] [phone] [place] [address] [place] 2021-05-04 2021-05-07 Hospital ER Cherie Faustin [facility] [id number] 17:37:00 10:59:00 [facility] 2021-05-06 2021-05-06 Anesthesia Denise Quispe [facility] [id number] 15:10:00 16:27:00 Event Jm Rushing [facility] 2021-05-06 2021-05-06 Surgery Nikita [facility] [id number] 13:00:00 14:30:00 [facility] 2021-05-05 2021-05-05 Travel [facility] [id number] [facility] 00:00:00 00:00:00 [facility] 2021-05-04 2021-05-04 Emergency ER [facility] Emergency [id number] [facility] 17:24:00 17:24:00 2021-05-04 2021-05-04 Orders [facility] [id number] 00:00:00 00:00:00 Only [facility] 2021-05-04 2021-05-04 Travel [facility] [id number] [facility] 00:00:00 00:00:00 [facility] 2021-05-01 2021-05-01 Emergency [id number] 16:21:00 22:56:00 [facility] 2021-03-13 2021-03-13 Telephone Ezequiel, [facility] [id number] 00:00:00 00:00:00 Tyesha Mojica [facility] 2021-03-08 2021-03-11 Hospital ER Paola Burnett [facility] [id number] 23:13:00 11:35:00 Encounter Rosa Isela Ching [facility] 2021-03-10 2021-03-10 [facility] [id number] 11:00:00 12:30:00 [facility] 2021-03-10 2021-03-10 Anesthesia Bahena, [facility] [id number] 11:36:00 12:27:00 Event Graciela Tian Eldon [facility] 2018-02-01 2018-02-01 [facility] [id number] [place] 08:00:00 08:00:00 t; HOLLIE ACUÑA Phy sici CHRISTINA, M.D. ans M.D. Results Test Description Test Time Test Comments Results Result Comments Source Tissue Exam 2022-04-14 16:40:15 Test Item Value Reference Range Interpretation Comme nts Case Report (test code = 104) Surgical Pathology Report Case: [id number] Authorizing Provider: Heaven Garza MD Collected: 04/07/2022 03:36 PM Ordering Location: [facility] Received: 04/07/2022 04:23 PM SERVICES Pathologist: Omari Lora MD Specimen: Femoral Head, Right Hip DIAGNOSIS (test code = 3220) n3oeaZSmHPRph5fzLHWctQLgKhYnYpDdIdXwNc pc dWMxIHtccnRmMVxlcGljOTYwMlxhbnNpXHNwbHRw W2WwaagkRDsfIY8iGP7sqQntmHBwwANyLIPuLvZc p1wkk513qRXbq8jtETMFnocgzXm2dMktI97lr4C8 FbfuX88fhQKtDHN7ZJUxMXEgjGTvYVDzUVD6CFJs wXUqV2jwYZIfUX3mzceaSHeaPTjoBRVyoOU1NSMh fTKhH5SrPKBfAKsyOEOajcq1FmSoVi4dlWCqnQtg XLomIFRvWJNpIPjtUSQjNzIyTv3ZCSneVyjPKWCr ZuMQJ9OMPFHFMQOWTLCWMdKAHo9KTALEDHudqYSj BFNjBJIJJoeQJjndII3YUEdGUG4TCliSQ5EoTDAE ALHMOLXIQJEXDWKKAGITUlHJOIMWPCOAGQ4RGCGs X00DX4xZCGLAXKEFNPYRZEjNH0HADrjvY4NbHrWQ P9ORQiGvcDEnYKZuWVNYWfXTEErNA39EQbDJMODL DI7piUDrbUyslkKaBQmsq8TqWPbhSHCsGM6ebYvy EAFoUL4gMFJlW3gfpP8tadn3NoJoPDPlZfE8AZZh gtV3Feb9AWFlYYyrv4rxz7LyNAEaTKo0pLdjXeDy HSSua0mxshPqEoBlYLXfQVBwYAGmuZCuR631s9fz k3xmcsIpxBP6QSWzVSI9NKqcflIlwyX7VLhwxMUm GtQ0FHhhxuChCWtzimIjnxDlArm4EJTnT334RGJ4 vYcrn2xmHKF4ZCPhVVJpReHtZl3wyNWiX587RJVo UBFEYAMjyWf0QASrvgQzxhBsuCNAd321E573z1ki NURxmiRjvUfIsxjyv4hgQ053GWClrFZaloOvTyAf RTVuyQRwrAA5HTXkNU6czqypDXrySVraVLEewsO5 YNEmxYAbT4TrXDYdHF3imhpyFUT4OIjjHYQvVTD3 JmPrZDHvp0Crhyg8DrNgba8tle74BSC6z2MacHde TVV5MWN7HaBlSu6wyOSuCTQlHF8aHrWmnNWvENWv ca76cJgyVBrhGCP2SITjcvWsp0Vmi5ejXrEcvmUd D9prW7IvFUVmHMIlGYTuQnImscAfw3Sqx8YtuLHi eMx0g6ebFQMsPAGefKdhx9azJYO1JGNhtUGpY7mb hO3fZHJaLO1mmhhel0hoPIknWYwpECBrnFV0vfK2 ZLUidHQrT5YrvR2nDAHgCTmlCRPvmvt8FmOtRe9z dGVyeTcyMFxzYmtwYWdlXHBnbmNvbnRccGduZGVj XHBsYWluXHBsYWluXGYwXGZzMjRccWxcbGFuZzEw TsRmuFgdpVjsLKudYiYtLAQvJIeaQ5spUbBeUfZk Khp1AVYcoZXgXQHpCms3LKLxaZHcBRROqVmzqM9y LACdjXzawZ2xyRR7EYSgbtGmfEVOeB3hOCPLoX4s UsN3ReSlJpP7AKp2IwAcdKTcaN8= CPT Code(s) (test code = 3357) w7ysfCFjNNNyrQB9UfFrRHEyp8nqn9IatYCo cGFy KQymrOOypbOnnr92zHY9lK32VT0wUNLwZzW3CMAw cdU0Rds0KGZuUHVtdTLuS338b8jco1xblfQmuPT3 hIruFRVnyjlsSiR2ZEurVLHqlkksKSn4HNnrYDIa xQJ6DWHpaQFlX6IkODHjCD7hqvw1ACB6WJygZJPv KdH1AENawLAkYCMbvLjaJBakd918XUT2FfGoNNKl rvOalBvpnI0aYzVfELP2KTJuYTgbZJpvNOKumFTp fQ== CLINICAL HISTORY (test code = 3356) z8xmdSHpWJCmeAS8HiFlKRVly3vub7A sdHBncGFy BBulhOAaxuGyhb34mBK2vT89AT3qXABbGaK3ENKw fxZ9Paz9DVWrMNXnyJCxB798x3vkm6uftdPbdOS5 TFLgVTHkT7GgWF9kJFKlyIKnW54drJRsSHS3WLDw NBDqeYYpGYJvUZD6MHEabBYnF2msQRUnGF5ywgwc SPzwVWkeNEDypUU8PBDzoZQiZ4SsIGPmCRyrZNCn ses5ZxSdYc6qtILpoWedEXqiULMkIZBmYBxmaFSy akxdxfMjIPMhQUPGPXbRWMPBJKYhZxLWT9AKNvEi cGFyfQ== SPECIMEN SOURCE (test code = 3377) y9pbbTGgTNLykLX8IaZaEBEeb6tjj5Hk dHBncGFy OYkxwAUtrkNvns42yNC1yY97HN1qWYBiCbN5PXAe wiA2Urt0YCVnRNYmjRZxA747k4vvb2vuxhQlwDV4 bYawFKShpvifHhA8HYnbXIJqplukQGc4OKnlSTBv xIV8SDRvrZDzC9YnWRWcDO1dgwg1GJW4UMnlSKDv TlF2AMHdzDBxGGXjyIfoJTvpr709SXZ8CpNeUCGj vmQktAfrvM3sYrRnZAMLGaHTFZ3lgzIqGMifGJBe BWXbJ4v4MJadpR8fiZVieX== GROSS DESCRIPTION (test code = g5dbhZRtFXNbzKM2HiBpUATgq7jsd4UsvBPl cGy [id number]) FKrabSNqyhLgli97sVB8gU79EP5eCRNoUxY6SRBr qtC4Mpm5OJVwJAHgtSFbX612m7drd5cahuYdbLF6 KUJeHNNuG8InTV0rDWTfqLHzU03bgZIfIYN2RXEd PEMkcQIyRNThCRV7FDFzsUKpY6ufAMUnGO1jfpyk WJmmEIomQQRsuXT2KGYclUJmP4DsIUUoWQveNETs vxv1JnFfLl3qfLTcyXbfCRmfPZXwx9vxCCEyoDJl XQO7TGxewDWgGYNvRBAeOEg1KWQtMZqxlDMiBC0c vDajAjwqhAaza4LyeNEtDYluYBAyFXRxMIlhQBHe N2HFKUHnWnd9AIxoUoTcIYr9HQvgX6GYNAWtSTJ3 OHQ3ZNBiIuM0NWc9FEQKMm3rAIq7IbO3LsN7ZVB2 PrW6FRataGWqGAleXgqpZXeeCSVacKIsFVkqntK4 ORWcJMywQDRxJiJsPH9fXcCnv1UjvMQBQTUxSCWI aWdodCBIaXAuXHBhclxmczIwXGNmMSBSZWNlaXZl ZCBmcmVzaCBsYWJlbGVkIHdpdGggdGhlIHBhdGll icRvrvRrVB8gBTAyS3Kys6Mnj15jnbGzVyUlGZYl CGUoxxpcxTFaiIpgTWQtbL8gVWdpfLSbVGXwvDQz KVD7WhYcqNH1WdJnjFQdRzWhV68pVcZyl3XaxRPk XSUrEUubiPryJXDtSTevWQHbJEzokN9ilrsbU6qx PWE7lhkeT8AuKU6pbgbjge1vSWRyDHUuycVaH8Up XKZnf0KlErYbDTBwqkNwsV9npGvxbE4oVqiwWTu8 THbeLO08sGNbIlSuDCdvYLL3qKMzwUJxXZUaETce ZMWqcg07YDsyp4ykRNVxEnE7a2GiyLSaDN2sahTz UCbbBiVybHD5cYNufCMtG7obWZU4fgAqZJX8fTK3 SFXyGR7fSENqqa3yRXLCJOBfGTNqxiVxjQp8NXPh GMX2bV7afoActvFpi3LdvFs6kPCkLRxwKZMbYZCe BRHubXmpr2neKsHqWSOyyGWwPmmjNFSbl30oDCzi wGltfGecHA3dwqnzuvTewePCLY4twBqyLBqxkI3n WKCltJWaPUQvH6MwaRenvtzyZAWrWMwRVTlHV4FH DZkwXMUqX0RiC9QisjR1n4ydfShfx2EmvDLsOP6c cGFyfQ== MICROSCOPIC DESCRIPTION (test code = n7vhxSGaYOBtxGL0OwOkWDOea1ilk3 BsdHBncGFy 3371) UWgbzVFvqsYspd18pCN2yL24MP3zJBInChR5XRHk ueI2Sxx9UXQoDMCasHHjW660j5gzx4bskfKrhVX9 aGirKJLuvlgqXjV6BAblLVRpqpydHEi6DKgbRXUq xLY7OUDxeYLcR4ZzZXEnKL6rgtv0KPZ3UVvtTTOs ZjK4GWTudRUjGUYlmCswPGjot436AZZ5JiLrVCFy pyOcfQjnbE0aWtXgWNUMRTWgm5CeETIrYNGixf9= Gross assessment was performed at (test [facility] enter, code = 2777) Department of Pathology, [address] [place] [address] 611[address], Technical component was performed at [facility] er, (test code = 2778) Department of Pathology, [address] [place] [address] 32309, Professional component was performed at [facility] enter, (test code = 2779) Department of Pathology, [address] [place] [address], [id number] 16:40:15 Test Item Value Reference Range Interpretation Comments Case Report (test code Surgical Pathology = 104) Report Case: [id number] Authorizing Provider: Heaven Garza MD Collected: 04/07/2022 03:36 PM Ordering Location: [facility] Received: 04/07/2022 04:23 PM SERVICES Pathologist: Omari Lora MD Specimen: Femoral Head, Right Hip DIAGNOSIS (test code = e2qsdGYnQOAbc5eqUFOmwIA 3220) uZzEwMzNcZnRuYmpcdWMxIH tccnRmMVxlcGljOTYwMlxhb kOcUBKbxJWfM7ZfgcryYGkb XK4zOK7eiJehoQIrlHBkAMU oBjQhp6uzi449oSLzk1miCO PTettbbPg2rIoaO48so2C4D tgvH88tmDPoMJJ1DJNgNMBo rBFaDJUbKRJ1NKYoeCUqW8h mGFUhDB2uosjqDSslZWjmTP BmtRJ9TXTplJGnV0ZnSIIpF XpnOWEfoxz8NwPiCj6svWAl eTcyMFxwYXJkXHBsYWluXGZ jYpPqJz4SMNyhPtoIDVWkPu KJQ3FDKIOMMINAWTWEWdNEE p4AGNLYJVzcsZFuCKFvRIBT JepXCjddLV6MWOrAMB2LIlw BS3NcXTXKYGDSLPIYRPECUT HFAEEOLnTFFCPYRGUEBP9EF DZlD11LL0hRULONBSVFPNRV URzHF7GBVnkjU8OcCgKYC0S VUkVccGFyICAgLSBOTyBNQU sHC73PZrFBCTFJYL9dfAVds SymsbZuSYfsb7RxSTerIBTi DP5lmJabQGLuCI1tHLOoB1n foB8kxzw2ZvAcVEWoZpC9XQ AnkmS5Bqy8OEOyWWetf0nxp 7RmMWBjXZl0qNnrDtKeFSEk b9ogvkNdWhByEWPwZSWiVOC uwXBqS583y0nmz3yadqLsjS L9FRBzBWF3MGausuRzwfQ2B OgreUMfBgU7QZrlfhOeVCrs jkEbipPsBmn7ZDNgI472GNA 7qUcra6mlDLY9YLUiTTQyZa VpZj6zuJBmC179CXPqGERNK VKtlVm4GWPimsGfakVbqDQS e456E401t8kuXNEdlxNqpNy Mslrbi3tgO147UGEacOLksi ZpJwXpROBjkRNjzHE3WUAcC M3nzyllJTwuIJigCCWbjjQ7 CLImoEDiE1UcTPVaAC0jzwq tHNZ9SKncUXPyTZF9JgUaJN Hso2Wzqxw8KwBcio2cym44F ES8h0FlhNbjFMT4AYH8BdMg Xl3lwCJcAZOkGL6eZgHwnXJ kIYGcqv11qKsuXSfsFWX5JD EdmgLyc7Plb3maAqFppbQxF 6gaC6BxLDIxIROqOZMqCuNv qgTgu1Onq0OsnKTkdKa4f0k sABMqTYSffHhxj5pmPZO1CV GdlRYcO3pziJ6hIYNgHV7hi ibzg3dbWJxjZOsoZAZvyVB5 vvB8FARykTTqF4JrfT5tXYV dXYtuMTCpkag5ZjHtZg2usK VyeTcyMFxzYmtwYWdlXHBnb mNvbnRccGduZGVjXHBsYWlu XHBsYWluXGYwXGZzMjRccWx cbGFuZzEwMzNcaGljaFxmMV hfKqTrGYDeMZxpK4xwIkCtS lBbGci7RJMcgNUtVXVgZxb7 WDFnmGRcPXLEcZpcuU1fIMK ukDkkzZ4lfHH7DVNfdzMdrM SAgK4kLLWZzE9mTjA2LmWqW fT4WBj3ClTrdWQysC5= CPT Code(s) (test code l5kvhZGcRMZglFN7VjGsUGO = 3357) eh9yhf7VmtYTmyDXiWJekrM DgdsPzqn58xVR3hA42BK0lS FUsToM8PWMcqtG0Sek3YYKf UJImqGSrS762t7gnm0ocqmP dqUR8mGwbYOMgqtdgKeJ3YY mfEJGcaumsURp1MLzlOIIcx IC1WSMqnFWhO5GcIMSnXS2a fvl0FTS9GEslWYMgKwL1JYE bjVGjXEDkqUraSCurq972FS P5YqKaJSKbjuTgkHdyaA7vQ yFgTGF6QRIwJTorSCwwRTCc cGFyfQ== CLINICAL HISTORY (test x7ysuALdYBWulAD4QnHzQAP code = 3356) sm9hmt5RknCWrcXTtMWvuiF JdflOusp94pAP6wJ50CM7fK TUrZhD1QVVrzhA6Rgv3TIPf XNGdrSInI929n0axe5wrqmL ieLP8ZRTvJAEaU3HdBK9aGF JdaPNkH65pdMFaGZJ3GCXyO TGbcRWtHCSrUCW1EFNuqCEf W3lsGIAlYY3yrfayYDdhSLa uZDIurVG1NRPheULpQ3RxSH LtXIgvNYMguqg4BoPfTa7ok GVyeTcyMFxwYXJkXHJpMVxw bGFpblxmczIwXGNmMSBSSUd OMCTKTGWjCjVJL6OWEqYlqO FyfQ== SPECIMEN SOURCE (test u3fwoQXdGBOgvRB4BtVeSAS code = 3377) nj4ksn7FxvCKigMGzXVujoK KdcyYsil52gFO5mZ17DQ6fB YEdHqI3ACKcaoP4Yej3VZNc OKMmePPfF423l6mcg9gtkqL mvYU7fXfoPYTfxzuhCvO6RM mgMSHyjqhyFGx7LSwlPIOms XK7VIUpcBBmM3McLMJbVK0p eai4FYQ2SJixBBNwVbH5HZQ nsASwACOnsPlrNGhmk883CN N1LgLxDOPdpuYtkQjhkB4tF yNlRPSTVqGZZE0aafTfQApg XKXnSEEpR6r1RImgkJ3sfGW yfQ== GROSS DESCRIPTION f1ydjXWuHUMroUZ2CfDuOTX (test code = hl6gkc2ZmhDZgtKPwIBarvS [id number]) YchmKiom80hVA3cP18KZ7pT BBeQhX7XVIziyZ1Yea3CQPi QKMucKQbC584w4zxi3pgclZ hfBU1SRHlPGRnE5DjDR3kTP XbuIKcB14rxEKkPPA9EQTzA MYoyTSfZJMiGKI1NQFzyBSd L9crZMIdZF9gtftzYXwtATg cODUwbGD5XTHejOCeU2XnGS FnMHaqFVLbnrm5RmVnRx6qw JRwxOrvEXyrZZImq1tsSGMj hJCxUMI9OFeeuUGtHEZeJRG dHNw9PIDkLDxunHGrTF1kuF muZylxeEevi6BktGNoETuiG ZWbHELhUCerRYUuV2QKJKIw Ytz9CNqsIzCzFQc1AFxbA0C RUTAmUBV5HRH7YDYnCcZ6GM z6JWEJAb3bWNw0PnS7ZsV0P RA2NcC7IKervCYaRFjkUkfj MOmwBKAuyPUcNUritsK8NLR vKVyfOCFuPyTdQG2wVhPfd2 JhbCBIZWFkLCBSaWdodCBIa XAuXHBhclxmczIwXGNmMSBS ZWNlaXZlZCBmcmVzaCBsYWJ lbGVkIHdpdGggdGhlIHBhdG xnyvKfygGuUR7qPZKvC3Hkg 3Wmb35ktwDyQhDbEKHxQADz kcexoNZwvTqlNRWuwZ2aXSd viCXhEULleFDvQAX7WkBlkH N2XzGafBGeKeYjF53tOnRyj 3JhbCBoZWFkIHdpdGggYSBq JWgqLELxJLvzhK1wxuvkW6w sWZM3fcohN4YwED6uixatwb 9hYXBeJRPfwkEnH3YuKTOve 3HtYtLmHCJfnsHltA9qmDly oP7gAhdgTYb6QVukJN95jYR pXgBhREbuEHO8vCIctKLxEY PrUFldADEvmn21WXdhi7acC XWtOwI9r9KlaMYdPA4uybWo MZppJgOvgTK2wZLqbVSuZ2q sHRD8wjNbYXQ9zYD7GXJoEW 8mUGCiev5tKWYBJKLvRHLnk nOhcZb1NCLsDWX6zF7jolMh frHgo1NlnJx7zQAqEUcnTLQ fTLJuNGGpeYhvl1vbPsQpSC BhbACpKwsnNBUuf99wYFhmf OvjeWokRL3lmxexalGylaLA XW8tgHgwSLyffX6rHEHjbTL qZMIbD3IacEkexdahWRZrXQ rXXNnUE7WVCTsqWYAhU8JwG 6JcfeM3o5nymWxpv4KusNJi QU0elRGljI== MICROSCOPIC t8vqwHLgZQEpwYN9EeXfARW DESCRIPTION (test code if3laa9QehASigZLcDDjqkE = 3371) AsetPbnj83pFO7cB89UT7cM RYpJmX0RSEyaiV4Meo0NZWq XIGbjUMkP242t4tkc1qjqgH zjLM6xTweBLXciburIuB9NN tbPXTfummsWJp3AQvpPPHvg MX3LAMvwSIjQ1AfZHAbPB4y tlx1JJI2JKhdYWVtOfW0RAM skZJrDIXanEfvSLhwo261ZC L2FdLhVFGhgoYwnEbehI0qT mJxAOIUMJJhi8XnJHFyTCKc cn0= Gross assessment was [facility] performed at ([facility], code = 2777) Department of Pathology, [address] [place] [address] 92288, Technical component [facility] was performed at ([facility], code = 2778) Department of Pathology, [address] [place] [address] 15575, Professional component [facility] was performed at ([facility], code = 2779) Department of Pathology, [address] [place] [address], [id number] 16:40:15 Test Item Value Reference Range Interpretation Comments Case Report (test code Surgical Pathology = 104) Report Case: [id number] Authorizing Provider: Heaven Garza MD Collected: 04/07/2022 03:36 PM Ordering Location: [facility] Received: 04/07/2022 04:23 PM SERVICES Pathologist: Omari Lora MD Specimen: Femoral Head, Right Hip DIAGNOSIS (test code = y2egqYKoTCAns9vnQXZapEM 3220) uZzEwMzNcZnRuYmpcdWMxIH tccnRmMVxlcGljOTYwMlxhb gTfPATalXLsG2BvkskiCJap NY6tAU8pvScqnRYylKDnIAL hPdZez7jmr800pOHqv9rmGI ERreceeAw2hIeiH77lj6H2H kbqN69qoNPkCIB5HWLkQPDu eLIxPOOoDLQ0ATUbiRUmG7g xYGZcUG2uvlfiALxdMEucNL FpyNF5SOQtlOPvP4IjLGQkT BdhEXPepqe1NiRuEy3bkDMr eTcyMFxwYXJkXHBsYWluXGZ wTlOqDk4XKYduFltYQPBvFw KPS9ZNHDZKVCHJBZHVJnTTP p1NSLAFOBanlYEcQMZiXMIU BblMBjtnUZ6VEHtFEQ8UTtk IU0CxHEXEKVPCOJBJAXUDCZ UOJYEGWsGNUANZJNTORY9AR RJzW21WQ0vLXKMBZDGBRKJR WGjPJ2AKAipqI0RqJiBQA9N VUkVccGFyICAgLSBOTyBNQU nSP83RZgHUZSISAV3orJHeb ZlevoDfISejq2OrDCscNJSh DG5eiVsjZRJgBF0aXJKhP7j wkC4dcgq4OtGnFNUlIiI3FE YenlZ9Abg1HKEmOCtcg0dqr 9NqORXxNWo5eInyWiQbYGIq w9mneqRzVuNuXWLjNNFxITX ppEUiM997s3piu0rqlqOegD N3WBMwCTD3AUyzyuYndeS0A VzstZSfQqL5USwvrpFdUIma gdXzwfCkEce9ZMLeS845IGJ 5gCcnx9uoEVU1AAQbWGDhFk NfGs6wzZZdU231ZXWhVFOBF KTarEt7JFQfwdKpilVhsEOW j458W497y7keNONzhcVexDv Gaqxjo6qlT474AIRwxSQguc DwUbXsTPVxwUIkeRB9NINgU J3wkqkhMKdiMLsgMLRdsrI6 LGEffNLbB1LzJVLlWA8pepa jOWL5DZbgZLRhWSJ1ZfFbOL Tsk0Ohdho6TvZrwu4fij73N CM5v1NaiVxkSJD5QCD2KnZp Lq2iiPDwGTOiKE5uUmEhgZK qZACwpd57mXbrXHfcOGS7QN FzliWwr6Uqt8gtWsKhwvSdF 2sxS2SaYSPiNOGlHCJvTqZg zxQbc6Lan4KidLXomAh9x6k pJIKbVAVbbWqmt9hiSOK9YH JmzTMoL2cecB9mDTMjAX9sm rpgt9lpDQypYAcpEFOzlRA0 guQ0OPAhyTGdM0JuqU3fUUX gIKtkBBNwhwm0WbFpQl3riW VyeTcyMFxzYmtwYWdlXHBnb mNvbnRccGduZGVjXHBsYWlu XHBsYWluXGYwXGZzMjRccWx cbGFuZzEwMzNcaGljaFxmMV cnYoZmBWPnRGqfP5ulXtVeJ dWcHdn5TLGwbNIeAEGrVhi8 ZWQsoQCzSDANpHhqxR2yWBK vfMesqA5czMX7PSTklsAqdZ WFpF8kJDUGnJ8lCqM7NyZeG aV4DQk9ArSvzZKwgA2= CPT Code(s) (test code r4ecoZQcDWSccNA4TwMbVVN = 3357) bp3qqn6LscESchGWwMOqqbO ZfzjPpgm31eAY7iO00EI4hI IIuYwB6BNMajfD8Wiv4HXNk RWYxkYYsN321z3vlo4tsftY ryQF8gJzdSVVatddwZmW9KR jeZIXkxfqyZSz4AOsvPUPuc DV3FCLnwLTwC3MhQWGwGK8t gca6JGB4DVwiCSCfQgY8RPK uwHWjBQFhhHlnWIyan558XX Q4HsZaVEVfgyYylNwhaQ3wB wXoBOI4VVImTOvdDSlhBSDa cGFyfQ== CLINICAL HISTORY (test g4reyEXfRFTqmPC4ReWnSUK code = 3356) ve0kup7SjfSOqoEZrSOogiA ZmujRsvp83lBO4cF38UC1qR LOnJaQ1OFVorhY0Ntp3RSSb RXAuiBEnN222q2pxd3yrqoY jiVJ7RLNfWEUxW7WxYE9sWW UtdRLoN29dfMGlQLC0LFSaX QVzfBSsSWSpRAS1WVDjuMSf Y4qwEEXyTC2itsceLWvuHLl nDZWxqHN0GQEwjBHyJ9RwHW JvQWidXMZbhsb6OkBvCo4ra GVyeTcyMFxwYXJkXHJpMVxw bGFpblxmczIwXGNmMSBSSUd XUWDBULYeLbUED6PDCuJvxG FyfQ== SPECIMEN SOURCE (test t1rqiITnZEDmaEN2TkCwGRJ code = 3377) bg6tdq4FtxTPqwCUdAEhfuG JgxrOhvl52jLI7oV63YY1kU YUkBzU2BLBmkgT8Stu1QEFd KJHugLTvB219d2isf8hnuxM fgVM9sXyoPHQuhqtoXrC3SC quCKNhxcyhGZd0NZvySNFrx WU0BAAzoVMeF2LvITUtUH5x jmv9IDP8CCrfOVRqJpB8PJO oiLTsBYEygXgxLTqkm159EK U5GxZjWSOnorPfoSpbhA4lS vQkYOEJNhSWRB1bgzJmQWve OKVxXNEyL0e8PQndvD4geDM yfQ== GROSS DESCRIPTION y6pjqDSuEEFoaYK2JeDkVGJ (test code = fg9dov7QaoYQgmFZeTXyyhY [id number]) TsyeDnaf05cRP0rN04ZX0lK QTvIzL4EWUwxxF8Jni0TMAb MJLtuLJyV110a8jzr3vtfqW klGW6YUWlBDSmP8GsQA6aMJ DjzWHkX70hhKUaXZQ5AUFhO BVmrQQtMBSjPNW2SJDtvSVp D7nnQQTuAF0viyduTNwkTYl qWCCqlPG8UVYwsUHeZ5XxTR HyRIijNINzomt6VzTxBh6et FKzxCpmMYzwKDCwj3upJPDo uIMyHUJ6AXtlwVSkSZOrSZD cDIo8NBQaYAgfrVKhKB7isH asJaztpXumv9HdgXVhNGrlF IHtPKNjMYegJISyA0FHRKEw Xlg1WUfyQqVpHYu1RKfqC8W RYSJlYBW4TLF3FKLtJsM9ZM z5PKSOQl9jHVj7PcZ5XuJ6N NY3UcZ5ZZrlgVGjLBznQttq UOboOIWioANyRMggbaR3QSY eGAckFXOaAyLlXM0rCkFcj6 JhbCBIZWFkLCBSaWdodCBIa XAuXHBhclxmczIwXGNmMSBS ZWNlaXZlZCBmcmVzaCBsYWJ lbGVkIHdpdGggdGhlIHBhdG glthJvwcIdLJ6aSOOhJ4Mqu 8Sfz67gbwFrDlMqWTKnJSZc plzsbVPamLteWYMvhW9oTOy zgTCdXEItoQItGBP4IsUoqW R7EdSnjAWoSaFuQ50yTkMzp 3JhbCBoZWFkIHdpdGggYSBq BMcqDEWtDSkkdT8afmrpR1e nXCX8gybuL6WvZJ2eagcrmn 3vSCXaEEPpfnOoQ8MiTEMtm 8CbLfYiVJLfprVvtS0heQiu uG2wWfvaNHu8HJszLP92aEC xUiVeAWdaFSF1zKUrhPKmYN AlJIonRFCuee59XCuma9qpM VBtZsA5r3PwnMIlEQ9cupHi JDznAiQjwQY1nVOkeAEgL4l eIBY3pqZaOTI4uOD4VWWeWG 9cGYJdoi1gCDJOAMQzJYLqp mGzdXt9WATyPHK9vM9fpnPf abDka6OnbWc2jYRxKVuxYWR oVVWbJUAenSgrz4veZfHlEX TolHSvYfssQLXgd25iETxfl HmqnMjuTM4bxszbmqMmdkTE LR8rzJczOXcveL4sEONqqYQ kCKWwE3MkoLiddeyzCHZxRC tINWiXD6HRMNoqSLTxH1MiC 5ZwrpY5p1ssnTjev8ZtlBIl ID9fiDMfkO== MICROSCOPIC u2iqcOOaOTYbmHM3KyWnEKU DESCRIPTION (test code zi2ykt8TtmGEytVIcUEoxuO = 3371) DolmCnct72uXL6uF57EQ9dN WOfMjP5OJAjcbG3Zte1ZPEy JFRcrWVlF941t8rbc2aagoK tlDK5yOcrUKZbezjqXlC1XE kgWBLkieepZPl5VBvgMGWft AN2VPGziSIwN3RjHXXxRG8w nbr9CDM1CUkvAMArAxI9LLM uqBExKVKfyIufIYhbi352EZ Z8ZhVrTMXsbfOvsHxriP1tW nEaTQASYNMov0DfUTItRKTr cn0= Gross assessment was [facility] performed at ([facility], code = 2777) Department of Pathology, [address] [place] [id number], Technical component [facility] was performed at ([facility], code = 2778) Department of Pathology, [address] [place] [phone], Professional component [facility] was performed at ([facility], code = 2779) Department of Pathology, [address] [place] [id number], [id number] 16:40:15 Test Item Value Reference Range Interpretation Comments Case Report (test code Surgical Pathology = 104) Report Case: [id number] Authorizing Provider: Heaven Garza MD Collected: 04/07/2022 03:36 PM Ordering Location: [facility] Received: 04/07/2022 04:23 PM SERVICES Pathologist: Omari Lora MD Specimen: Femoral Head, Right Hip DIAGNOSIS (test code = o5ffeMMcIXKxj5msOUHujIG 3220) uZzEwMzNcZnRuYmpcdWMxIH tccnRmMVxlcGljOTYwMlxhb bHvJRRwxOAkE4LactziZOfw DG8hET2yvYjhcNKriABlEYZ sXzNac9yej839vYIee4toYO VHckyirVv9hMplF49cv5L1M jbtG13dmIHfKPZ1ZQUcBATz gVKyETUkQZW6NTAkjNEiX4c lJUOxPT3cuwkjVVuiBLlzLB UuwER7CXNbdHWtR7XtGDHyS YgoWRKkfyb8BpWhMt5zqKYu eTcyMFxwYXJkXHBsYWluXGZ eNeQuVp9NZTgvIgyIYKOtAx KFU7TPKRPQZGMJOJUYWnODF u2FLIQAZZgktDIzHMUjUSGT AqvGGrluEE4PCOsGVA5RCss MY3IqPROXQDKABQHFFTTPHU SUREOEXnIEBDMDUHGRRG8CL LYwH92HN5iDGALXOXKVIHWV GTiMZ5CJQahcM8KwUsKLZ1Q VUkVccGFyICAgLSBOTyBNQU cEG96AGoZLSIIDRZ5izYZsd XzttqLzUPnvt3CtVKtnILPx LM1huYlpCCNyAL1aZBNdS6e pqC3wfar0XuBpXKCkUnQ2FH VgzeC0Ukb2GVWbCImgu6jqh 6DwZYFzDAg6tDfkQyAfXCMj y5pexsZhNeQwTGKmTUSeZRX itZPiE873e9duv2dbnnFfsO M2LOZvOKD1UYjpvcCcamH3C QsnnLBiFvV7OXkchvLmMOzw cqKsblVfTyq9VLKeQ615XRT 9tDjrt6abRSD8YGRnFVWtIc ZiJf3roORqE737ODPeEGLGY KNcnSc8WPGuleDyhdFumHHU a905N333n1thNKCqugGagDk Znebdz7tqM943OTUshVLnzj KjIlQyVWRmnKOjjIX8VYXyL B6dfeqjRYfvTFfnEURbnfJ5 WVKjlTWtJ4JnCKTiSL8otlq pKJB7OYnvXQNbROO9PiKsXW Aib8Hgzki8DnHafi5ncj01D DO7t0LlqMfcICE1WYK5HaHx Uy5nrEJsKKWgMA1rWeJeoRW tXVSxri91iVlpGSjuZCC0XV GoweZtl5Oyj0kcYgVwmbMjI 0xpL9WtQEQzRBCcRPUbXgFj pyXre2Cbf7HsxTPkdYw1d2s qXTDuAVVtrFtps4moQYJ3WN UulYOjG0rrpU3tVEOqDK3ko eewo9pzRFktMQqyKUQapPF1 rqF7WCUetVTzE8VgoX6kFCN wKXewZYSbyaa2KxLjQh1svV VyeTcyMFxzYmtwYWdlXHBnb mNvbnRccGduZGVjXHBsYWlu XHBsYWluXGYwXGZzMjRccWx cbGFuZzEwMzNcaGljaFxmMV pcEhNbHZDqPAfqP4twJyGdD tLeLik7YWCwgDHkGTPeWvb8 BVOfmDWgTAGAbLrhkM3qKYQ smGeqjC9pnEY8EEHnouMdnX MSjI1bEFKWsQ2qZnK2PbBhT nS0YMk1OiRyzOXmnM7= CPT Code(s) (test code v1drdNYiSBElsHU3YnYjXDN = 3357) ix9qjh2YipRAxfJPnPBlpbH LvlrHqmd56kQB7aD81YM3oL HBbBsE7LWVtrwX4Azu5KEAx AURnwVCfT490i6ecz6vmznH gqBC7vUlzNDVgqospKrV3QR geILMfumudOXl7DZaeWTVvi DC2XJJxhUAwK5NlSOWeXX0c kym7GTQ3SXiaLUIaAxU2NKH iyJKoOWTfzWhqXNsrl470TA E6DmAsQTGdxyMluKfqdC0nH oRoEOP5CMXrLXlrCBmmPDGm cGFyfQ== CLINICAL HISTORY (test e3uriQDjHEZqfQH7BnPyFEC code = 3356) ab3zwz7GbcDJhrVGiIEygmO VtqaWgkw84aJB6kV24VV9qC MZhRpL6RAUyrwI9Wow5SEAi WZDsiHZzF335d7oov6vllfM mbIW8YCPfSZEpZ1UeSR3eJQ BfwOLgN65raTMkQFZ5BOYfG QElbDMmUDGkDEL4XYBnmHSo K5nbHYIlNB9qkkcgLQztXZs sBMIdtCE9NLGmuGGxE6WkES ThPUgjUETqmmq1TjWyGn1iv GVyeTcyMFxwYXJkXHJpMVxw bGFpblxmczIwXGNmMSBSSUd BMHKGCOKdIqOVA2ZAIuBlhL FyfQ== SPECIMEN SOURCE (test v6kbuMLqZNWpuCG0KdKgMHN code = 3377) mx8sdx6LnpKLbjGYyDJtngS AhwtDspr20hXX2iZ53ZS1aD AEeAqR3PANsabU0Krn9RSJk LFDqeTEoZ040s5pae1crihO wzYN4lXqhNJMsecrnDnR4MD vbAEVxcenqSQq3XOwmUVKww PS0OZBbcKJoC0SuRXCmIX2q qfo0BYC5CMxzUESmAnP5MBU kyQFvCNJfxVerSBuyx308AT B2TtNrSDOtkjLfmIizkC2dW hIhUTNPDcCYTJ8lwvEqEIwc BZHeCOPqS0h7FKvcvK6wsUC yfQ== GROSS DESCRIPTION h7nmlUZuURRmqDX0PjXaLXV (test code = fq2gfv0KctYEvsTCpSKpxwI [id number]) AvkzCxvj58sZM0uG51IY3lR OQrOwD3DEYxxeJ7Fgq1HNJk NOSfmVIsS642f3jfg3yuddJ otXU8EUQjNACxI5EsIU3ySN IteHWeV77omPYhTOL1TVKmL PEfsJPsZPBlIWQ1PQGraOCw K7arFTQzMR2momryDRupOHn kVONdsTU9HHCppRNoK9BbSK NiPIgeSGMgsmx2BeLcMu8ji SIntIhiEGojVKDmm7jbVAEb qRFxQDG3ENpdxXRcOLQkAVF hSBi3DLCmDKxebMWlOP7fnF ryHuixqJbvg4TxaXBlLZxiS RRsYTXrONopQVChM2NFTVVb Jpy8JLvqFiObSVe5KOrmX2S SROAsOWW2GPU9EGEePqM7TT z0CQUEZk7kBFv2SsH4MuL3X OU4DuB6TAbkjDCoFZleLaev UIbdTEZgeNPhBRblegA6DDW hFFxlZZOrAkDtDI0tSoTsx8 JhbCBIZWFkLCBSaWdodCBIa XAuXHBhclxmczIwXGNmMSBS ZWNlaXZlZCBmcmVzaCBsYWJ lbGVkIHdpdGggdGhlIHBhdG syjrEfirAaIW3jBRQqT4Tzv 7Emq60rgsBzHfLrVIGdDSFm hzdbwJElxCvgJRRbkL1oUOn ccRReUHIjwEYwITX6QiFwdR J4WgVmpVLgXcXqZ20mWoPhk 3JhbCBoZWFkIHdpdGggYSBq JScxTNFzPMkrrZ2aixhiC0k kQIS7doppF5JjTI4rffdpaw 0yBPZxEZEeudNfM5WqSMQhq 8VlPwExUBPbhePfyT1ycOgr jS8hZvlxDRn6ZQblYJ81iVG jNgDoWTuwBIW3hNBcvOCtCN QkIJwhWRMphj00JDeqr4fuA XBlPiK3x7AebQGtWY4cqdFp BGgiWuTdiHY8oRCuyEQeB9e dIYV8biVpNJN8vJN3TKFxRD 5fAGHpqi1wXTURYWGmUBMnh eBsgRl1NVFoNAL0xC0djpHl wiElu7GwkEi6bJKsTTbpPNZ lLUDqSDHitHjxz6ijHePsHD NnyTMeHrpdNXIra81bOVdzq LxbrTmqMU7lxcxcnsJtsvVD GB2pvEzdMHvpeX5vZCOdaHW vFATlO9NyiPszgumqIIJoWU kZSVbKD2NQSVclGZUtO1RfK 7JvpmF3d5uqrYodt0GshBFn LQ5hqDFulA== MICROSCOPIC z1gbkRPzEXCzeEZ2WcTjPMY DESCRIPTION (test code ha4vff1XnePMirBDjBHdruG = 3371) JvvpRthm31pEP5eB36GO8aD YDbYcM6CVMltjY0Aml5SDJl FBAdcHUiR895r2dno8foukX vxKR3aVzfDATkktauBfQ4CO shSCIgluxaECy7FOgrAIBvn WK3ZEZgxDLjF4JaENVrZM0u psy3CBA1EMxrJXPoQcK6RMU bpTJdYONfzClfEHkkm623YD F2CdDfMKPiywQweHvfqU0qX iQvNCLNRHIvk2RqOLHzCHTk cn0= Gross assessment was [facility] performed at ([facility], code = 2777) Department of Pathology, [address] [place] [address], [place] [address], Technical component [facility] was performed at ([facility], code = 2778) Department of Pathology, [address] [place] [address], Professional component [facility] was performed at ([facility], code = 2779) Department of Pathology, [address] [place] [address], [facility] [id number] 16:40:15 Test Item Value Reference Range Interpretation Comments Case Report (test code Surgical Pathology = 104) Report Case: [id number] Authorizing Provider: Heaven Garza MD Collected: 04/07/2022 03:36 PM Ordering Location: [facility] Received: 04/07/2022 04:23 PM SERVICES Pathologist: Omari Lora MD Specimen: Femoral Head, Right Hip DIAGNOSIS (test code = p1avwWNgUNEpv0rmDHZlcDF 3220) uZzEwMzNcZnRuYmpcdWMxIH tccnRmMVxlcGljOTYwMlxhb sNoKDSmaPPlV9JhhskvAChh DI4oMO1saDgdpTTyfFLyBFH nTfVyt2fyn093oNAzy5ndWP ZTlhbxbSv5mEptD47mc6L6K lzzV57yjXJkBRB5MKIaEACq hSJdIOSsVCJ7CSLbiUTrE0n bMNQpAV0neltiODcmDIfxCD FxaBR3EAXxzOZfN4OdGXSsD NfhROKkkrp6FgXxYi0mhAWh eTcyMFxwYXJkXHBsYWluXGZ gNkLkCf9IIObiEgcEUKFaQb XCT4CYDHPVECEAZPBUTtOYI a8XEWWWTWtgtUZaAGLjGWLH NjkMLoasCY6LIRhWCH6YJrd CU7BqNOMRXSKJZILGQNWGTA STISCFAnSWYOEMPGTQWE7OI FXbY99BA5sUCMZOGPKHRBOK ADaDP3ZADcdmY5EuIiPPP0C VUkVccGFyICAgLSBOTyBNQU oYD55SJsQMBCWNJD2rrCJaq EbzebZoHHsdz8CpGVfmMFDs UV7ghDguZZDyDP6jPIPtL9r gdY9tyhg9PxVkMBTrSnY7NU IdbgQ8Qtk9OQKaJKyst7hez 4XzZCPnENx5zUheGcXiWZDh o5dksgEjTtUiXHXpEQWpKGA qgSWaD874l4xft5dwpyHjyA A2DFUcFLQ7VNbmxdLspkF9R DkaqWYvUaK1MMahuuMmIHgk lqUbjyGpCab8TXJxK662VSC 3bNcau2lvGTC8ZXFfPODoBk FeXi1bwOEvJ822YJGaZVIGD DCqiFh1SMRffoAgdxTxdFMR y137U433w2lyXAGbnjGjgAb Yfzsfp8pwV208TXPpaWZplq PoKpDiQEWljGJlrVA4DFJjP D3zytkhDVrhTLaoSCBugwA3 PSCmvSRiI2CuBLAwDY2foyo mFQA6HRmtPGJnYVO5OiDdLE Ktd3Sdyeg3ItHkgw2sdy92M LY6i1TpwNtjXZW2DKN6CeMg Ls1nbBRxJYQoWF6hMtAryWC zAEKdtf39rEftVAbeGJI5XZ KlsdYqj4Mry8mkEyZtxlWcS 2trQ1JfBEYuXJGgFKVkOtUc ibDmh8Ynp3QlsPNkdQd8l8e jZRUiIRQcsGmmz2spKOH8NX FfeCRvB4tzwV3iZVOaJA8ou hotg5amNPudNGlkSINjnQK4 ixR7QKKrcNKvB1WdsH8kNJE wIPzlNGScicc6VgQaIe4uiC VyeTcyMFxzYmtwYWdlXHBnb mNvbnRccGduZGVjXHBsYWlu XHBsYWluXGYwXGZzMjRccWx cbGFuZzEwMzNcaGljaFxmMV wiRvLpAVJbLBicF2lkRsUwX zRqGdz0LONhqBRzZDBuNea5 CKGprEVbVTPYtVkonC9xHCD bkKyetD1kjST9QCFudfLzeD QCmN4pYZXJkU7nZaT2ZsCrQ yQ4FHs9RaMhvJHtcV3= CPT Code(s) (test code d7tmzNUtTFAdiKV7EfWiKBW = 3357) wj2rvv4XivONtaMGlKXyshA OhpdNoby55mCS4uM63GD6cQ XVaStZ5IEXdfoL2Grk1BURd DHZfqUPbI670f5euo6xjvrS gaHJ2rGtwGKGbwbweZnX4UN csFPEpvzyfGSs5PBniKRRls QJ7YDVhjJSpA0AqRKVkRL2a pbk2UGT0JQohODHqNsI5NXS zzRVgOVTzzIxySNjvl913NS O5GeFfXDLsuuWkqWazxN8uJ xYsDFJ8FJTdTNlhRScaUHSz cGFyfQ== CLINICAL HISTORY (test i1btsQOfZDSasPU2VaRfPGS code = 3356) xu4jdp0QfyEDwgJOuJRehoZ GdqyZpqh33pII9lR68GL6cJ SHxLsS1ALIhpfG2Wkz5MLBb FMUdbBZoV872t6rdq6xqrvT jxJY8SAEnHRIiI8CqRM4bKP OhwIKmL52opDZjUAM1UPYsJ IZbxTQnQWOtNVF4CCYahVYw D4zeFUMcFS0ynuovIMsmIOd iKOCdfNU5BZWumSTdH5IsHD TkLTpnSTGppno2WaUdPk3db GVyeTcyMFxwYXJkXHJpMVxw bGFpblxmczIwXGNmMSBSSUd FCRXWQFCuZkYZX3UDTgGjkD FyfQ== SPECIMEN SOURCE (test e7viuGTrTPSkzXP2UrEgQVD code = 3377) nj4jms7ChzJEhyHAyYOthbK HaakBgcc46iFE5hU07GO2zF UZuOqR4ATYykgU9Mqc6WTDa QAXtoBDiO677o4xas7vyqjJ dkNN4yTkxTYMszozuSyG9FD bxEKZitesrMXl4XQwlAJLvw RP6KSRiwGBkF0FiIGSsXX3j paz2CDX9ONutYJQoDfL8EQM yaEGmCKUifIegFUmol935CT M6JlEkSYBpumSggMtooH4dM pYwEMTTYcNGUY9jsvRaFIpm CBDnYNAtM3g5NAgytH6hzAY yfQ== GROSS DESCRIPTION p7xkmMFeGWAjfQI3ZdAbYTP (test code = xp2tme6KneICwiTHpPJvjxU [id number]) UwxgYnal11wKO2tK56MB5jQ GIzWwU0OAMtsrW2Zyk3RXMr VBKsjUQxS675i0eqr4nrevR rnGS8ECQvJPMpG1EpAI5uUI YciIHpT41uoIFcXXN3CKBrI LEdoMYjHBBvHEU2CZHpjKKl S5szQPYmBL3urpunEQafSTa ePNTsqXU3UZTalMNtW8UjVZ UkZKxwVNMbjph4LoAvAc0xd RAdnIccMXnqDTRaq3toMCCz jPGlIHF4YHudjVTiRXCxTIC cQCw0UBAtOPomyDApLJ6ctM qlNnwklDizx1KdyVTrJJkiF GQpLIPcLYioWVWtN6OJJGFa Nab7NOneZqWdRDs5QLrmZ3O LYEBrZOF2VWI7CCXtCrV3RK j6OCYRUn3aPPj0NrU8DeI8Y DG1InZ3TZwthOTpRXskMwun JBkeIVGjkELmCTdlxsM6BCA tVLutSSGwQjBcFB6sHaIql6 JhbCBIZWFkLCBSaWdodCBIa XAuXHBhclxmczIwXGNmMSBS ZWNlaXZlZCBmcmVzaCBsYWJ lbGVkIHdpdGggdGhlIHBhdG qhciNdwjCqRY1uHCKcL8Qke 0Ekf03imrOxRqUbBAOnRAAf bzuikHPrnHzsUYNnsD9vKVj vhXJnSJRafIHkSVV5CuHluY N1IoWhbVJcMnImJ90qCpCig 3JhbCBoZWFkIHdpdGggYSBq FCcbSUHoSTrxoN9yyuleS5z jKMC8yvlwH1XpGG9wbvgqml 7yQQTuEEMtwkTuX2KkIVHem 6KyGgHwWVCnhlYvoU7fwIce zE1mNtinPXd8XEqrTB75qHT tFkWhQAzyCXR7pSXxcUNeCY XuBQjtYSFboh79EYnnv7vlT CByOhH6y2ZluDQkPW0sdpXh HNrsJeBkaMK3iPTbuWNjC8b sMDE4paFmUGY8rDF3HLIrND 9zPYXefe3sJNWFROPuFTEyi pItbJq9NRPySGD0yO1afhHt pyGqn0YhgWu4sNVnZYphGBF jHOHrNUGnwKlzq8jiKpGbOW BlkVUeUxywTLJzf75oLDedj GjfzSxuVS0jgyuvnfQhvkXN QS6omZiyYMlibY4rPDCopAJ jIEVqL6HzoQvjkljoHOQhWR wYHMgNZ2SAHTakZSJkY3JvD 4TcufV5s8hoyUwjf8JkzSNj VN9lgIUlkX== MICROSCOPIC c8eqqWGeCRSncOE1FhOuWXM DESCRIPTION (test code qb4naa7HukNDosTNbQJdqxI = 3371) VspfPmgp00bVH3gM38CL2uL GQnNgS2OIOrtpP4Oub5OTGt GAArcFYxL703y4sdw6jemaF lgVA0qCwrVVMsakaxBrO1VU zhVZAzfixbKHl5GEmcXQRhw KN6GPYmkNWtF8YfUZIzHZ3m aoq8CLH2XDjhTWMyQcE2OTK tgYPaLIIxvOxhIQbov453LN T5InOsVBQmchAglDwojP6zW uYwCUXSGRZep9RmUBFuWRVl cn0= Gross assessment was [facility] performed at ([facility], code = 2777) Department of Pathology, [address] [place] [address], Technical component [facility] was performed at ([facility], code = 2778) Department of Pathology, [address] [place] [address], Professional component [facility] was performed at ([facility], code = 2779) Department of Pathology, [address] [place] [address], [facility] [id number] 16:40:15 Test Item Value Reference Range Interpretation Comments Case Report (test code Surgical Pathology = 104) Report Case: [id number] Authorizing Provider: Heaven Garza MD Collected: 04/07/2022 03:36 PM Ordering Location: [facility] Received: 04/07/2022 04:23 PM SERVICES Pathologist: Omari Lora MD Specimen: Femoral Head, Right Hip DIAGNOSIS (test code = y7zmkFAnAZCvm1epLXHnuUB 3220) uZzEwMzNcZnRuYmpcdWMxIH tccnRmMVxlcGljOTYwMlxhb rCqFWKtnWFhA4JkxdzvRKyk UL4mFL9jqMqfoBSyfUBwBUO iLfEln4wmc321fYXmw6ovMB XGncrcpXx3sJhgX01gz0L0F hbqZ18qnLEpXCY6CUPbRBEs vFWdRJDaQYS0JAYcxAZoX5w fWLYuQL4pktqvYYphJRlaOW RxnPX0UUFkxNEyI2AzGFKkU DozARQmusn4ImBmXf0otCIz eTcyMFxwYXJkXHBsYWluXGZ rTxHiRs9OYArqNnfXFBRqQw LIZ6XGKLGZEGJEWSRRYsNUT g8YBDLRLIwmxUZrRNBlPAKS DgbUSrnzPM1JYIkBOB8IKzj LD7UsUKRXCMRDHNXMFWDIFS RGCOQQZcEVTPLVCGXRFL5QF HCmF18VW2jRWNDAMHEHXUOI OAsRU2WRBfwnV6JgOkPEU5H VUkVccGFyICAgLSBOTyBNQU bYS01NPtMSFAUYQB7mcOLam IgrhwLyFUunc9AlIVogKMSq DV1ovEfeWQBaVX9fZGNdI7d dpU6tvdb3WsTfCZLbYbS6DZ CzwsX4Puv6RHMyETsxc8iub 1AjGVJvOSk6iQjfOvAgIRFz z8zcxqRxKgUlUJLuTJKnYFN xiYQeO108x9zdh5ilqsEhzP P5UXIfQPZ3PQmustFyuxN2N WtxyQTfFoJ7KGjohhKfGCts bwHmusFePml7UJMpW789SGH 3bPvdy0cvYMY1UKJjWLItCd PcFx0icORhL107XCSjJYETP PKucBv0KQImogQeclMbrIOB o374D284j3wzQTNbxcCdaVg Lagsgz2kkV962KJAvxLLmwd NwHlPuITJsnVNblAT4QCOjD P3eblivDGkfNJpuTVLsvwM2 HEHfqAYqB6LbHHQvXI2qnht cUDT5HJljCRFjSVZ3YpKoIK Vfg3Dvlja6OyIcrk3usp18C KC9f4PldXpgZDH3YKL6KjEq Uw8pvTZcPAEeMB8aZjQyuSA wYONqod95iYtfOBlrHPM1ED CfljZdx5Itn1naIkPpvbJxD 7uoJ9BlCGNmKIJgSYNsIdMe ffAog2Nph0LaiNBzmNp3v5s gRZRjVIYxtVvlg3oaBLR7PE OziDHnZ5rxtY9jIBUoOY9yt kbfd3hzYHrmXBakRBCviKW8 rhW5ZPLafDUvY4CtuH3sLTU qZDzyBXZsmnh0CzMgAx8atJ VyeTcyMFxzYmtwYWdlXHBnb mNvbnRccGduZGVjXHBsYWlu XHBsYWluXGYwXGZzMjRccWx cbGFuZzEwMzNcaGljaFxmMV uqOdUmUNEuQTlzX6lsBgHaL iDmDlb9IYUpnZQgMWXhRcv5 ZLYuoHQyEIMWeNnjlJ0fCEJ ukDvkvB6pmZM2TARruuGpeY CNmI0vBUXYaW2tJjG2PrSbF jL9CZf4LnHohWVnsA7= CPT Code(s) (test code u7ejiUHdYLJudFR1TgXcACB = 3357) xj2nqs2PziWIhhTIaOVgpmB SqgpWmcd90xKI5yT35ZF9eJ GDsQoA8OTSjxzO5Vxd0LQPk LPQrjNKwV882e0lyq3jrnzD zrGJ4rXhdUJNkjtsjNtV6YP ykDQUcqzalHLl0EPegZTYso TY8AWQukBWzS1NuQFSuBO2a gns1PSO7RKgpEJToNhC2WCW ozVCtMWOwsNqoXUyga634QB E9StWbTOVpkhUxfPwgaH6mT hEyJYC9RUFbHTcvYWmlPTBn cGFyfQ== CLINICAL HISTORY (test d5ounRQkZNVjjOJ8UrFdZDR code = 3356) ch8uki1WapJMchRHyFIypzU GhqtYjcc37hKQ3hK83KJ1zJ NSoXtN0ADAmdeI0Ezw7SKEy VRHxtEBoG251u6mzo0nshxR niJB6QOJgMCSkV8UcSO3vWG WztOZjF44ngNLaBLU6BXTvG VOxjKVbKRXjBSX5QGUmaMBc Y1zmEQTeTS5rqluoYHzkXMl qQMZprQE7IHDiuJJfZ7LbYR CoAReqNGYneea7ZhTyPe5ie GVyeTcyMFxwYXJkXHJpMVxw bGFpblxmczIwXGNmMSBSSUd TXNEWBXOoSfDZP2QCIuEgnV FyfQ== SPECIMEN SOURCE (test k3ozlKTmGJZprKK7KrIhQWI code = 3377) ln0rir1LoiWFnhFJoWVakmM HwvcHxis75jBQ5qU13NB5gR DVcLaP4TKRnulM0Sln4KVEp SWMgjVHxL563d6qkf1fnduQ vuQC5rDcnTDFmatjtHdC1BJ jcFAGabxpgORb4ZYiaJOOyn JJ9UHPenIAdE3DaVZZtMM3n pbp8SLN1IBuhUGRmPsE9TIP qeWLlVKNapKmbZMxpb648ZK O0SdXoQUEdvmEggLzhrC0aP nFpDGXYVkJDRK1wygErXQoe MSXhAEEgG8m0GCwonP6jbFB yfQ== GROSS DESCRIPTION n6sjbTLbBDPocMA3EoYiLBB (test code = fd1arh5DjiDWwtMZzMXmfrQ [id number]) WmjrMiup40mOC3vU64RD3uT CRkAhX8MCPopuP6Pvf3GDZm MBCuzHVqQ460p5ycq3zevlD qbXG7DNSyZDZjH0PnKN6uWW XuhXHvT52uqYOdOXR2SVAwJ HIwkUHlCKIgYLU2PHNegEDa M9ehFWLxAH9vvvwaSByoBHp pEYVoyFX3FGSqhFDoY2NiTU YcSWbfARKlcjx7NfSwXk8io KXtuTmbIAncJMFbz1mcQIEl fOIwAJM9YDkpyVRkXTIxDSG pYXn9YXEhUFqgpEMbVS9zuV zpBigkaCusq8WuwYHgAXwwU ONlWEPoEAtaQNBlR9UXYBHx Wqk4GJreSpRtLNk4NQqrY5N SZHKrCAS0KAY1SHVaLaU5XI h9UOOAIf8wZCp9DdV7BzY6Y VU9EpE3KDlrwLJvLHtkIovz RUuyVGSnwADfSZusedB7LIV qVZwuKUDbTpYeBY2qIySkw6 JhbCBIZWFkLCBSaWdodCBIa XAuXHBhclxmczIwXGNmMSBS ZWNlaXZlZCBmcmVzaCBsYWJ lbGVkIHdpdGggdGhlIHBhdG mzvmCqfkCwPO9aHIGcG1Xfb 3Scu00egjKkPcTvMPQaVMFf yyocjZHmiUntJREcvP6oHLs vjBDsVYFemTLtMKZ3IbMaeL M5PtMobROsFjTjV50kMfWwg 3JhbCBoZWFkIHdpdGggYSBq RRojANXdTXbkzU0vmkluN6q nNHA1hybhB4FrIC0khjljth 3mUMWhKHQuxiWgQ7KoRQUua 0OdXlQrAKIvnkYxmZ6loWnm gD5lSoynAYa0CPnaES53mGB gOqRsHDdcYOM6vWQvaZFbMJ MpUMywRURvpg83BDubr7ncT TVrXkJ5f5YexRGuKH6chvYh NGqlXvOugJF8xFAhdPRyI9n hLPU1gvUmFNF2uHX8LOKcAW 4aZYNgqv1yDCXZRNNgIGOyk nEcpMd9NRIzHMY9gO2hgyXg jdTdg2SjkTe4gRYzLOnqNAI xUEZlGIPrrJwsj9fvGvGqSW FklFLqLjikYGFhc43aMIhwo YnkgEdpXR8xarwsubGtzzIL VG8pnDheIUxeaQ6vTXQtiWW oLTPdE9PvjTsqrjdlEHStNQ gJMEdNF6SHECdqPNXbV6OnU 6EcedJ9c3uquPitd0ZdzOSv QA1tkVEjzG== MICROSCOPIC r5yqpBKlHCDrzGJ6ZbZvCSO DESCRIPTION (test code ph9pte3QwoIPrvIKkOOafgY = 3371) PefpQyfk17lNG8rJ53JW0wQ NFuWtM9MRLojxB2Ubu5ZMKq KRKbwQElE992c7gqb9zmrrD veXT9aIauHZXrrqrnUkY1HV frKWPnvewcLLk5EXxjFJXhi FF7LUEllAZkO6KvFFDwAK7x tpd6KPT6HIigFEMpJfU1QBI lzFApAEHcxTgbRXjft490BD A3XkHrSWDsyeAtcGkfsC4eE pThIXRYXTFsg6GcMOGeGMBt cn0= Gross assessment was [facility] performed at ([facility], code = 2777) Department of Pathology, [address] [place] [address], Technical component [facility] was performed at ([facility], code = 2778) Department of Pathology, [address] [place] [address], Professional component [facility] was performed at ([facility], code = 2779) Department of Pathology, [address] [place] [address], [facility] [id number] 16:40:15 Test Item Value Reference Range Interpretation Comments Case Report (test code Surgical Pathology = 104) Report Case: [id number] Authorizing Provider: Heaven Garza MD Collected: 04/07/2022 03:36 PM Ordering Location: [facility] Received: 04/07/2022 04:23 PM SERVICES Pathologist: Omari Lora MD Specimen: Femoral Head, Right Hip DIAGNOSIS (test code = z1fjrKXeSYPbw5gyZKQgnTJ 3220) uZzEwMzNcZnRuYmpcdWMxIH tccnRmMVxlcGljOTYwMlxhb nOgANZknAIoD2OakzplZFvz VC9lRF4jtUufzIClyLCsXDX tUiIgo4gaa497jOEem1ocPU BXxtamkCt7uLpaC13mp1W2N zarP22hyYPrPAE8DXHdNLMj vYZbSDNlQJD5MVYfdYXhL7j aYEJcQJ4mzthcLSeeFDqgNK PztQX7SYCfwRPvH0TsBETdH VohZMBdaat1SkNiOw0rrOAr eTcyMFxwYXJkXHBsYWluXGZ pTkVoRl8XVDuvKufXOJIlDv IRD5ZTBMSJEDNEMBBEMvVBE h3OXWCPVTziaBTzZPUlQQBU PpsXJusmTK9CFXfMHR7FLzl LY3VzUVMQRCEDFMMMEYDLFP TBFZCQFmOJVYBBKZQPJZ3JQ LAzF97QA8kONRSCTCHYJQGK PEqBS5JIMjnqL3OmXhCBC6W VUkVccGFyICAgLSBOTyBNQU zJX69UAuODGPOBFG0qiLMnm QfczrZyTEzdn8AeREljWYZm ET8bcXwnZVZcAH0oZQCpG3e zyC5rdpl9VuWuOUGuXeO5PR CplqS8Qun6TZToYZzct0wnx 9SdPPSxMMh2zGcpQfUnLJQq f1uphrRzAdOrTSQcDUKsSPR ayBZpU091s3ggt5bjobYmuF C1XHNjBJA9DEjgosAtcnO1U WhmwBOsXwM1CYlgorJlYJwk ddQiauGeEag9YBAsG405AFA 7zYbfk6biZAK2AQCaDCFkYi BeIf0hvCCkR736TSPyTTGTB HSuoTs3DUUtmeRxmtPgkDEB s823S758n1gdSXHtsuYqlOa Gmseeo2yhG163QSNjuEXkqw QpVaYfEEDmlDVblUY8RYZaX X1apwupSKnsYXtxESRrmdC6 XVVlxMCiN5YcFICzQH2hjkn qIOC0MWloCMJfMKN9YeRwPJ Qdn3Ausxx3OiLweg7gmp51Q QK5n9ClsHnwDEA7NOB3FuQx Va7qzQCgFZOhDB2mZwJlxOR bHERfju89tErnFAyfPKA2DU MzjvWkl7Ttc6jdDrVbuxBdB 0pmX1BgRAPcMNIoUPTjNzHa nhMar1Zjy4FktHCqcVl5t6x xABKqZRAxvLeps4svGOT0RK FtqLRnW3kaiC6uGRAiUS1qk lyyy6zrFKxwMJgvAIPbzSA8 psZ4ZHQceRUgK5FdbZ6cHCP cHPajTYErwop4JhPsOi2rzI VyeTcyMFxzYmtwYWdlXHBnb mNvbnRccGduZGVjXHBsYWlu XHBsYWluXGYwXGZzMjRccWx cbGFuZzEwMzNcaGljaFxmMV ejCuCvIDTrFUtdA2laKpHzQ gRyUpe4IQNalOVlKJIqJip7 RNYevVVlMHMUvNvbvA0zQMK cuLfieG3gyNK3LWYvymFsxZ JFmN4qGIQJvA3lUdL9PnRvN pQ0QTz7QiVpiHIiiF7= CPT Code(s) (test code z7dhlSXqFZXbmVK5CsOhFXQ = 3357) zw1mop4DjhXDdzZAfOWfpkQ UtuzQfye94pSF8wX43MB8vD XLsBqZ4XDIbmrC7Irf6KWQk AAXffCIyB155a2ttp6xdjlV esBB6rFimEQXkeqecKjT6GJ arLLTiphryWUb2DNcgHJRqg ER4PFDzoIZqP2FqSUTeLE7k mzq1PMM3EZxnSNPvUkF2LIH upPNdHBOftWfaVBlha160RE F7QfUzZRRreoIjwVhnqQ9cZ nZpCPA3PZBfLGzvGSxxSUFf cGFyfQ== CLINICAL HISTORY (test b4lzjCVrPTRxtCD8GnLmSFZ code = 3356) ur8tex1EjlCVvzFPtNNrryC PfrxPecb53hRS3oL62NA7yU SGjCfF0XQDhzvG4Ddx1WJDs UMHcyXXjT358q7gdv1pqczP lfGE6GMPoIZOvI6ZxHR5tYJ IrlTXhG70qcBErILQ4ZVQfV YMjmIVwGXJhLLC9AMGsuXNd X2opXXBuAZ9fcqglDQjxYJi eDASghDH5CNTuvIFzQ3FxGV OdKXvoLDLtnnf9HxGkSu9et GVyeTcyMFxwYXJkXHJpMVxw bGFpblxmczIwXGNmMSBSSUd YVMBBGKAvUvPWR8MQRjMjtD FyfQ== SPECIMEN SOURCE (test x0rsmNWzLMGwoJS6XyHhAGV code = 3377) qr5cwu3OvcYGuyNCuRKdddY UfbxLfso85rMN5kY44VO8fF GJlZsP7RMLonwI4Ayz0ZUZs YCLppSBlK497p4eqm0unwqQ pxIB1xYvxFIVhapaeAjK6LU rbVGSvasyoKDa2BPiaFIBbz IX6JGAvqLWsD5DgAIPcNB4c ami5LWQ2ZVumUDGuUoC9WLI wgFQkSLHdcSszZHodu381PG L9QwXnJQMpieVjeGeckN8dS yGsLXMDDyLJOP1pamGbDGnv JEHlJKIsI6k9AImfiY8vzWE yfQ== GROSS DESCRIPTION a1fssYKpVVLadOO0UsBcDIT (test code = is1ejw9DvqHOdnQAjALbwkC [id number]) OmjqFlzm62wFD1tM54YX1pK RCgDlL8LYKqxvB0Gen3NFOz YRFtyOUbU544h3boo4fksyE pbSZ7YJZjUQZkH4EtJL1cDX VwiBSaK84dyRRcXXG0JGMhE FLxyOEnHILvBSM3BMQabXTs L1msCWOtAO9fdumwMHwrEJv xGNVqlSJ5BDRmxOZtH7SkEE SnEUemKHIesuj8MzChHr2og RTlhQruEFxoGLEbk6vvQUOp vNQzMXM8QBccxJFxBWEgPKP kILr8PXUrMMzrnJIjPD5wsV evGlnhsJmgl7MegJEhTNwnV KCnPHByXSndXYSbH8EXBXZh Alj3RExiUuJdIMc3TVsnY9O NTCTbDOG5EBS4MHKqChE1UQ u6DAHOXc7hASm2IjE8XvP9R MS3MmN4GWsdgOGfRXqqSgxb ETmvAZUvdZEfYWsxvlS4YBY aNBikJCZrEeAuYD8lIuOwh0 JhbCBIZWFkLCBSaWdodCBIa XAuXHBhclxmczIwXGNmMSBS ZWNlaXZlZCBmcmVzaCBsYWJ lbGVkIHdpdGggdGhlIHBhdG evqrExmrMpET6hPSXoR4Lua 2Mwl19skvGoCvIwLDFbBAEh rffitOUddJzaVVSkdK2bAMi mkOArZPRfhIOoJOR4DeJffA P6ZhAmrXYyEjDxE82eFrGkc 3JhbCBoZWFkIHdpdGggYSBq SBpvTCQyYNwynU1dkakqN7t rXCE0eulaY1DyCD0kfnclmb 2uVKFrCIWharUbL9MtYSYbm 9ZpLdRxUJUirtCtmB1yoUmx cL1rAzivJHy5OBrlGN40eRU dRnJeIZmpVMP9pABlhKYrOB HgRKomQJClen28GWiar9wxK ANkPfP2s8KthSUxCP2cluKo PTofMgGvqNM5iILulGDoG3w mCFL3wxToWTD2gIW3BNXmNJ 8dQFRpei5vCHWHAGZlITAvm kBzhXy4QTYhZKM2iC4tiiJk hmGjk1GxwOb3gHQeKDmeVAM vOERfVEImcOccu6oiWbAgSQ TnaLLhGiexGTAcq14oNLmgq EkyuUheZH9rwxngpnQjsiBT RA0huAinIXdxbJ2bMUGxyPL aOSTpZ4BfuHmavfihWSCaKC gOOSwDZ4TLMFxvYDKnA7DrI 1EbnkG8w9hfwHqlk5IwuDVf CD3kiODiiT== MICROSCOPIC h5lzvXBiESAmdEX8VuAhAGR DESCRIPTION (test code wj5qwh0WwxTOhnMHeISxrhF = 3371) IqewChjh02jNX3wS51RP9lR XJiWvR5CDVgdjB8Jrc4WPKd JIVqmZSoX545t4ehw1xrprB wzFI9hIiaTNPixonsReG9WX urGZIfbyuxIZl9CAykAVNyv PW9GNHcyUVlX4KpCSXzPY6r hqt5HPW9ZReoKAStImK9ZDZ bhUNeCURoqUubGPxrp501FY Y9IaNgDYFjlpSqiMcglM0yI fKvNHREHIBbm0PdJMKqVOEr cn0= Gross assessment was [facility] performed at ([facility], code = 2777) Department of Pathology, [address] [place] [phone], Technical component [facility] was performed at ([facility], code = 2778) Department of Pathology, [address] [place] [address] 65590, Professional component [facility] was performed at ([facility], code = 2779) Department of Pathology, [address] [place] [address], [facility] [id number] 16:40:15Surgical Pathology Report Case: [id number] Authorizing Provider: Heaven Garza MD Collected: 04/07/2022 03:36 PM Ordering Location: [facility] Received: 04/07/2022 04:23 PM SERVICES Pathologist: Omari Lora MD Specimen: Femoral Head, Right Hip BONE, RIGHT FEMORAL HEAD, ARTHROPLASTY - ORGANIZING HEMORRHAGE, REACTIVE AND REPARATIVE CHANGES CONSISTENT WITH HISTORY OF FRACTURE - NO MALIGNANCY SEEN Signing Pathologist Direct Phone Line: [phone] signed by Omari Lora MD on 04/14/2022 at 4:40 [id number], [id number] HIP FRACTUREA. Femoral Head, Right Hip.A. Femoral Head, Right Hip.Received fresh labeled with the patient's name, accession number and "right hip femoral head" is a 4.0 x 4.0 x 3.0 cm femoral head with a jagged, hemorrhagic surgical margin. The articular james rface is smooth to finely granular. The cut surface is zruita-yellow, diffusely hemorrhagic at the margin, trabeculated and firm. Payroll Master sections are submitted in A1-A3 following decalcification, with the margin in A1.HANNAH Cox, HT (ASCP)Performed.[facility], Department of Pathology, [address] [place] [address], [facility], [address] [place] [address], [facility], [facility] of [facility], [address] [place] [address] 81676, SARS-CoV2/RT-PCR (Asymptomatic ONLY)2022-04-13 17:25:46 Test Item Value Reference Interpretation Comments Range SARS-COV2/RT-PCR Negative Negative The SARS-Co V-2 (test code = target nucleic 41065-0) acids are not detected in thi s [...] om SARS-CoV-2 in a nasopharyngeal swab specimen [facility] [address] from individual s suspected of COVID-19 [...] revoked sooner. Fact Sheet for Healthcare Providers: https://www.Chapatiz/Documents/Xp ert%20Xpress%20SAR S%20CoV-2/Fact%20S heets/302-3802%20S ARS-COV-2%20HEALTH CARE%20PROVIDERS%2 0FACT%20SHEET.pdf Fact Sheet for Healthcare Patients: https://www.Chapatiz/Documents/Xp ert%20Xpress%20SAR S%20CoV-2/Fact%20S heets/302-3801%20S ARS-COV-2%20PATIEN T%20FACT%20SHEET.p df Lab Interpretation Normal (test code = 74957-2) [facility]13 17:25:46 Test Item Value Reference Interpretation Comments Range SARS-COV2/RT-PCR Negative Negative The SARS-Co V-2 (test code = target nucleic 16004-6) acids are not detected in thi s [...] revoked sooner. Fact Sheet for Healthcare Providers: https://www.Chapatiz/Documents/Xp ert%20Xpress%20SAR S%20CoV-2/Fact%20S heets/302-3802%20S ARS-COV-2%20HEALTH CARE%20PROVIDERS%2 0FACT%20SHEET.pdf Fact Sheet for Healthcare Patients: https://wwwEnviance/Documents/Xp ert%20Xpress%20SAR S%20CoV-2/Fact%20S heets/302-3801%20S ARS-COV-2%20PATIEN T%20FACT%20SHEET.p df Lab Interpretation Normal (test code = 05810-3) [facility]2022-04-13 17:25:46 Test Item Value Reference Interpretation Comments Range SARS-COV2/RT-PCR Negative Negative The SARS-Co V-2 (test code = target nucleic 73496-6) acids are not detected in thi s [...] individual s suspected of COVID-19 by the healthcare provider. TORRES (test code = This [...] revoked sooner. Fact Sheet for Healthcare Providers: https://www.Chapatiz/Documents/Xp ert%20Xpress%20SAR S%20CoV-2/Fact%20S heets/302-3802%20S ARS-COV-2%20HEALTH CARE%20PROVIDERS%2 0FACT%20SHEET.pdf Fact Sheet for Healthcare Patients: https://wwwEnviance/Documents/Xp ert%20Xpress%20SAR S%20CoV-2/Fact%20S heets/302-3801%20S ARS-COV-2%20PATIEN T%20FACT%20SHEET.p df Lab Interpretation Normal (test code = 99229-7) [facility]2022-04-13 17:25:46 Test Item Value Reference Interpretation Comments Range SARS-COV2/RT-PCR Negative Negative The SARS-Co V-2 (test code = target nucleic 89839-4) acids are not detected in thi s [...] revoked sooner. Fact Sheet for Healthcare Providers: https://www.Chapatiz/Documents/Xp ert%20Xpress%20SAR S%20CoV-2/Fact%20S heets/302-3802%20S ARS-COV-2%20HEALTH CARE%20PROVIDERS%2 0FACT%20SHEET.pdf Fact Sheet for Healthcare Patients: https://www.Chapatiz/Documents/Xp ert%20Xpress%20SAR S%20CoV-2/Fact%20S heets/302-3801%20S ARS-COV-2%20PATIEN T%20FACT%20SHEET.p df Lab Interpretation Normal (test code = 49447-6) [facility]2022-04-13 17:25:46 Test Item Value Reference Interpretation Comments Range SARS-COV2/RT-PCR Negative Negative The SARS-Co V-2 (test code = target nucleic 15376-2) acids are not detected in thi s [...] revoked sooner. Fact Sheet for Healthcare Providers: https://www.Chapatiz/Documents/Xp ert%20Xpress%20SAR S%20CoV-2/Fact%20S heets/302-3802%20S ARS-COV-2%20HEALTH CARE%20PROVIDERS%2 0FACT%20SHEET.pdf Fact Sheet for Healthcare Patients: https://www.Chapatiz/Documents/Xp ert%20Xpress%20SAR S%20CoV-2/Fact%20S heets/302-3801%20S ARS-COV-2%20PATIEN T%20FACT%20SHEET.p df Lab Interpretation Normal (test code = 11110-8) [facility]2022-04-13 17:25:46 Test Item Value Reference Interpretation Comments Range SARS-COV2/RT-PCR Negative Negative The SARS-Co V-2 (test code = target nucleic 17639-0) acids are not detected in thi s [...] revoked sooner. Fact Sheet for Healthcare Providers: https://www.Chapatiz/Documents/Xp ert%20Xpress%20SAR S%20CoV-2/Fact%20S heets/302-3802%20S ARS-COV-2%20HEALTH CARE%20PROVIDERS%2 0FACT%20SHEET.pdf Fact Sheet for Healthcare Patients: https://www.Chapatiz/Documents/Xp ert%20Xpress%20SAR S%20CoV-2/Fact%20S heets/302-3801%20S ARS-COV-2%20PATIEN T%20FACT%20SHEET.p df Lab Interpretation Normal (test code = 48079-7) [facility]2022-04-13 17:25:46 Test Item Value Reference Interpretation Comments Range SARS-COV2/RT-PCR Negative Negative The SARS-Co V-2 (test code = target nucleic 11079-0) acids are not detected in thi s [...] om SARS-CoV-2 [facility] [...] revoked sooner. Fact Sheet for Healthcare Providers: https://www.Chapatiz/Documents/Xp ert%20Xpress%20SAR S%20CoV-2/Fact%20S heets/302-3802%20S ARS-COV-2%20HEALTH CARE%20PROVIDERS%2 0FACT%20SHEET.pdf Fact Sheet for Healthcare Patients: https://www.Chapatiz/Documents/Xp ert%20Xpress%20SAR S%20CoV-2/Fact%20S heets/302-3801%20S ARS-COV-2%20PATIEN T%20FACT%20SHEET.p df Lab Interpretation Normal (test code = 62434-4) [facility])2022-04-13 17:25:46 Test Item Value Reference Range Interpretation Comments SARS-COV2/RT-PCR Negative Negative The SARS-Co V-2 target (test code = nucleic acids a re not 7707377) detected in thi s specimen. Negative result [...] revoked sooner. Fact Sheet for Healthcare Providers: https://www.Strobe m/Documents/Xpert%20Xpress%20SARS%20CoV-2/Fact%20Sheets/302-3802%88RSAO-ISM-4%20 HEALTHCARE%20PROVIDERS%20FACT%20SHEET.pdf Fact Sheet for Healthcare Patients: https://www.NudgeRx/Documents/Xpert%20Xp ress%20SARS%20CoV-2/Fact%20Sheets/302-3801%06YNTI-ASU-2%20PATIENT%20FACT%20SHEET .pdfBLOOD [id number] 17:00:19 Test Item Value Reference Range Interpretation Comments CULTURE (BEAKER) (test No growth in 5 days code = 1095) BLOOD [id number] 17:00:19 Test Item Value Reference Range Interpretation Comments CULTURE (BEAKER) (test No growth in 5 days code = 1095) POC-Glucose [id number] 15:34:27 Test Item Value Reference Range Interpretation Comments POC-Glucose Meter (test 129 mg/dL 70-110 H : TE STED AT [facility] code = 1538) [address] [place] [address], 770 30: Special Education Aide/Techni aldo ID = [id number] for Desmond, Lina Lab Interpretation (test Abnormal code = 81194-8) [facility]-Glucose [id number] 15:34:27 Test Item Value Reference Range Interpretation Comments POC-Glucose Meter (test 129 mg/dL 70-110 H : TE STED AT [facility] code = 1538) [address] [place] [address], 770 30: Special Education Aide/Techni aldo ID = [id number] for Desmond, Lina Lab Interpretation (test Abnormal code = 11455-5) [facility] [id number] 15:34:27 Test Item Value Reference Range Interpretation Comments POC-Glucose Meter (test 129 mg/dL 70-110 H : TE STED AT [facility] code = 1538) [address] [place] [address], 770 30: Special Education Aide/Techni aldo ID = [id number] for Desmond, Lina Lab Interpretation (test Abnormal code = 31923-9) [facility]-Glucose [id number] 15:34:27 Test Item Value Reference Range Interpretation Comments POC-Glucose Meter (test 129 mg/dL 70-110 H : TE STED AT [facility] code = 1538) [address] [place] [address], 770 30: Special Education Aide/Techni aldo ID = [id number] for Desmond, Lina Lab Interpretation (test Abnormal code = 90441-8) [facility] [id number] 15:34:27 Test Item Value Reference Range Interpretation Comments POC-Glucose Meter (test 129 mg/dL 70-110 H : TE STED AT [facility] code = 1538) [address] [place] [address], 770 30: Special Education Aide/Techni aldo ID = [id number] for Desmond, Lina Lab Interpretation (test Abnormal code = 30023-9) [facility] [id number] 15:34:27 Test Item Value Reference Range Interpretation Comments POC-Glucose Meter (test 129 mg/dL 70-110 H : TE STED AT [facility] code = 1538) [address] [place] [address], 770 30: Special Education Aide/Techni aldo ID = [id number] for Desmond, Lina Lab Interpretation (test Abnormal code = 12597-2) [facility] [id number] 15:34:27 Test Item Value Reference Range Interpretation Comments POC-Glucose Meter (test 129 mg/dL 70-110 H : TE STED AT [facility] code = 1538) [address] [place] [address], 770 30: Special Education Aide/Techni aldo ID = [id number] for Desmond, Lina Lab Interpretation (test Abnormal code = 89354-3) [facility]-GLUCOSE [id number] 15:34:27 Test Item Value Reference Range Interpretation Comments POC-GLUCOSE METER 129 mg/dL 70-110 H : TESTED A T [facility] 6720 (BEAKER) (test code = [facility], 1538) 91860: Special Education Aide/Techni aldo ID = [id number] for Melida Dotsonlyn POCT-GLUCOSE [id number] 11:44:07 Test Item Value Reference Range Interpretation Comments POC-GLUCOSE METER 118 mg/dL 70-110 H : TESTED A T [facility] 6720 (BEAKER) (test code = [place], 1538) 90197: Special Education Aide/Techni aldo ID = [id number] for Lina Dotson POCT-GLUCOSE [id number] 08:00:15 Test Item Value Reference Range Interpretation Comments POC-GLUCOSE METER 114 mg/dL 70-110 H : TESTED A T [facility] 6720 (BEAKER) (test code = [place] [facility], 1538) 45724: Special Education Aide/Techni aldo ID = [id number] for Lina Dotson [id number] 05:48:59 Test Item Value Reference Range Interpretation Comments MAGNESIUM (BEAKER) 2.0 mg/dL 1.6-2.6 Specimen slightly (test code = 627) hemolyzed Special Education Aide ID - PIAYA [id number] 05:48:59 Test Item Value Reference Range Interpretation Comments PHOSPHORUS (BEAKER) 3.9 mg/dL 2.3-4.7 Specimen slightly (test code = 604) hemolyzed Special Education Aide ID - PIAYA LBASIC METABOLIC [id number] 05:48:59 Test Item Value Reference Range Interpretation [...] not appl icable for dialysis patien ts Special Education Aide ID - PIAYA LCBC (HEMOGRAM ONLY)2022-04-13 04:52:27 [...] 0-0 (BEAKER) (test code = 413) POCT-GLUCOSE [id number] 21:03:16 Test Item Value Reference Range Interpretation Comments POC-GLUCOSE METER 111 mg/dL 70-110 H : TESTED A T [facility] 6720 (BEAKER) (test code = [place] [facility], 1538) 80659: Special Education Aide/Techni aldo ID = [id number] for Sivan Etienne POCT-GLUCOSE [id number] 15:53:40 Test Item Value Reference Range Interpretation Comments POC-GLUCOSE METER 133 mg/dL 70-110 H : TESTED A T [facility] 6720 (BEAKER) (test code [facility], = 1538) 66957: Special Education Aide/Techni aldo ID = [id number] for SANDRA Bradshaw GUERRERO POCT-GLUCOSE [id number] 12:54:17 Test Item Value Reference Range Interpretation Comments POC-GLUCOSE METER 130 mg/dL 70-110 H : TESTED A T [facility] 6720 (BEAKER) (test code [facility], = 1538) 84420: Special Education Aide/Techni aldo ID = [id number] for SANDRA Bradshaw GUERRERO POCT-GLUCOSE [id number] 08:18:20 Test Item Value Reference Range Interpretation Comments POC-GLUCOSE METER 116 mg/dL 70-110 H : TESTED A T [facility] 6720 (BEAKER) (test code [facility], = 1538) 93838: Special Education Aide/Techni aldo ID = [id number] for SANDRA Bradshaw GUERRERO BASIC METABOLIC [id number] 04:23:08 Test Item Value Reference Range Interpretation [...] not appl icable for dialysis patien ts Special Education Aide ID - ELVIN [id number] 04:23:08 Test Item Value Reference Range Interpretation Comments MAGNESIUM (BEAKER) (test code = 2.0 mg/dL 1.6-2.6 627) Special Education Aide ID - ELVIN [id number] 04:23:08 Test Item Value Reference Range Interpretation Comments PHOSPHORUS (BEAKER) (test code = 2.6 mg/dL 2.3-4.7 604) Special Education Aide ID Carlo OCONNOR WCBC (HEMOGRAM ONLY)2022-04-12 04:05:05 [...] 0-0 (BEAKER) (test code = 413) POCT-GLUCOSE [id number] 20:52:48 Test Item Value Reference Range Interpretation Comments POC-GLUCOSE METER 151 mg/dL 70-110 H : TESTED A T [facility] 6720 (BEAKER) (test code = [facility], 1538) 10225: Special Education Aide/Techni aldo ID = [id number] for SLIM VICTOR POCT-GLUCOSE [id number] 16:09:14 Test Item Value Reference Range Interpretation Comments POC-GLUCOSE METER 130 mg/dL 70-110 H : TESTED A T [facility] 6720 (BEAKER) (test code = [facility], 1538) 27065: Special Education Aide/Techni aldo ID = [id number] for Ruslan Powell POCT-GLUCOSE [id number] 11:25:47 Test Item Value Reference Range Interpretation Comments POC-GLUCOSE METER 99 mg/dL 70-110 : TESTED A T [facility] 6720 (BEAKER) (test code = [facility], 1538) 31267: Special Education Aide/Techni aldo ID = [id number] for Ruslan Magana Urine [id number] 08:48:43 Test Item Value Reference Range Interpretation Comments Result (test code = 6463-4) No growth [facility] [id number] 08:48:43 Test Item Value Reference Range Interpretation Comments Result (test code = 6463-4) No growth [facility] [id number] 08:48:43 Test Item Value Reference Range Interpretation Comments Result (test code = 6463-4) No growth [facility] [id number] 08:48:43 Test Item Value Reference Range Interpretation Comments Result (test code = 6463-4) No growth [facility] kldazfg4260-71-12 08:48:43 Test Item Value Reference Range Interpretation Comments Result (test code = 6463-4) No growth [facility] [id number] 08:48:43 Test Item Value Reference Range Interpretation Comments Result (test code = 6463-4) No growth [facility] [id number] 08:48:43 Test Item Value Reference Range Interpretation Comments Result (test code = 6463-4) No growth [facility] [id number] 08:48:43 Test Item Value Reference Range Interpretation Comments CULTURE (BEAKER) (test code = 1095) No growth POCT-GLUCOSE [id number] 07:40:08 Test Item Value Reference Range Interpretation Comments POC-GLUCOSE METER 96 mg/dL 70-110 : TESTED A T [facility] 6720 (BEAKER) (test code = [place], 1538) 24904: Special Education Aide/Techni aldo ID = [id number] for Ruslan Magana [id number] 06:30:09 Test Item Value Reference Range Interpretation Comments PHOSPHORUS (BEAKER) (test code = 2.2 mg/dL 2.3-4.7 L 604) Special Education Aide ID - MIMI GBASIC METABOLIC [id number] 06:30:08 Test Item Value Reference Range Interpretation [...] not appl icable for dialysis patien ts Special Education Aide ID - MIMI [id number] 06:30:08 Test Item Value Reference Range Interpretation Comments MAGNESIUM (BEAKER) (test code = 2.1 mg/dL 1.6-2.6 627) Special Education Aide ID - MIMI GCBC (HEMOGRAM ONLY)2022-04-11 05:58:00 [...] 0-0 (BEAKER) (test code = 413) POCT-GLUCOSE [id number] 21:31:00 Test Item Value Reference Range Interpretation Comments POC-GLUCOSE METER 117 mg/dL 70-110 H : TESTED A T [facility] 6720 (BEAKER) (test code = [place], 1538) 99120: Special Education Aide/Techni adlo ID = [id number] for SLIM VICTOR POCT-GLUCOSE [id number] 16:59:44 Test Item Value Reference Range Interpretation Comments POC-GLUCOSE METER 110 mg/dL 70-110 : TESTED A T [facility] 6720 (BEAKER) (test code = [place], 1538) 95382: Special Education Aide/Techni aldo ID = [id number] for RA MOS, DARLINE POCT-GLUCOSE [id number] 11:22:31 Test Item Value Reference Range Interpretation Comments POC-GLUCOSE METER 156 mg/dL 70-110 H : TESTED A T [facility] 6720 (BEAKER) (test code = [facility] Sendy [facility], 1538) 78799: Special Education Aide/Techni aldo ID = [id number] for RA MOS, DARLINE POCT-GLUCOSE [id number] 07:51:14 Test Item Value Reference Range Interpretation Comments POC-GLUCOSE METER 113 mg/dL 70-110 H : TESTED A T [facility] 6720 (BEAKER) (test code = [facility], 1538) 54860: Special Education Aide/Techni aldo ID = [id number] for RA MOS, DARLINE [id number] 06:43:13 Test Item Value Reference Range Interpretation Comments MAGNESIUM (BEAKER) 2.0 mg/dL 1.6-2.6 Specimen slightly (test code = 627) hemolyzed Special Education Aide ID - HUMBLE [id number] 06:43:13 Test Item Value Reference Range Interpretation Comments PHOSPHORUS (BEAKER) 2.1 mg/dL 2.3-4.7 L Specimen slightly (test code = 604) hemolyzed Special Education Aide ID - HUMBLE MBASIC METABOLIC [id number] 06:43:13 Test Item Value Reference Range Interpretation [...] 30-44 G4 Severl y decreased 15-29 G5 Kidne y failure <15Reported eGF R is based on the CKD-EPI 2020 equation that d oes not use a race coefficientEsti mated GFR is not as accur ate as Creatinine Celena lety in predicting glom erular filtration rate . Estimated GFR is not appl icable for dialysis patien ts Special Education Aide ID - HUMBLE MCBC (HEMOGRAM ONLY)2022-04-10 06:18:00 [...] (BEAKER) (test code = 413) Prepare Leuko-Red [id number] 23:54:00 Test Item Value Reference Range Interpretation Comments CROSSMATCH (test code = 2264) COMPATIBLE Unit ABO (test code = O Pos 3570479) UNIT NUMBER (test code = [id number] 934-0) Status (test code = 8418311) TX_TIMEINCHART Blood Bank Product (test code RED BLOOD CELLS = 2263) PRODUCT CODE (test code = B2591J62 933-2) [facility] [id number] 23:54:00 Test Item Value Reference Range Interpretation Comments CROSSMATCH (test code = 2264) COMPATIBLE Unit ABO (test code = O Pos 4872970) UNIT NUMBER (test code = [id number] 934-0) Status (test code = 0138195) TX_TIMEINCHART Blood Bank Product (test code RED BLOOD CELLS = 2263) PRODUCT CODE (test code = D6552L95 933-2) [facility] Leuk[facility]Red [id number] 23:54:00 Test Item Value Reference Range Interpretation Comments CROSSMATCH (test code = 2264) COMPATIBLE Unit ABO (test code = O Pos 2544793) UNIT NUMBER (test code = [id number] 934-0) Status (test code = 2635854) TX_TIMEINCHART Blood Bank Product (test code RED BLOOD CELLS = 2263) PRODUCT CODE (test code = L9333I26 933-2) [facility] Leuko-Red [id number] 23:54:00 Test Item Value Reference Range Interpretation Comments CROSSMATCH (test code = 2264) COMPATIBLE Unit ABO (test code = O Pos 5484700) UNIT NUMBER (test code = [id number] 934-0) Status (test code = 3401636) TX_TIMEINCHART Blood Bank Product (test code RED BLOOD CELLS = 2263) PRODUCT CODE (test code = B9888F61 933-2) [facility] Leuk[facility]Red [id number] 23:54:00 Test Item Value Reference Range Interpretation Comments CROSSMATCH (test code = 2264) COMPATIBLE Unit ABO (test code = O Pos 8998176) UNIT NUMBER (test code = [id number] 934-0) Status (test code = 1913298) [facility] Blood Bank Product (test code RED BLOOD CELLS = 2263) PRODUCT CODE (test code = C7130A88 933-2) [facility] Leuko[facility]Red [id number] 23:54:00 Test Item Value Reference Range Interpretation Comments CROSSMATCH (test code = 2264) COMPATIBLE Unit ABO (test code = O Pos 2799339) UNIT NUMBER (test code = [id number] 934-0) Status (test code = 7251467) [facility] Blood Bank Product (test code RED BLOOD CELLS = 2263) PRODUCT CODE (test code = K6077S05 933-2) [facility] Leuko[facility]Red [id number] 23:54:00 Test Item Value Reference Range Interpretation Comments CROSSMATCH (test code = 2264) COMPATIBLE Unit ABO (test code = O Pos 8981471) UNIT NUMBER (test code = [id number] 934-0) Status (test code = 6599899) [facility] Blood Bank Product (test code RED BLOOD CELLS = 2263) PRODUCT CODE (test code = Q0123S98 933-2) [facility] [id number] 23:08:16 Test Item Value Reference Range Interpretation Comments POC-GLUCOSE METER 119 mg/dL 70-110 H : TESTED A T [facility] 6720 (BEAKER) (test code = [place] [facility], 1538) 98621: Special Education Aide/Techni aldo ID = [id number] for Karla nixoncarol annParis POCT-GLUCOSE [id number] 17:18:13 Test Item Value Reference Range Interpretation Comments POC-GLUCOSE METER 172 mg/dL 70-110 H : TESTED A T [facility] 6720 (BEAKER) (test code = [facility] Senyd [facility], 1538) 78912: Special Education Aide/Techni aldo ID = [id number] for WINNIE RAMÍREZ CBC (HEMOGRAM ONLY)2022-04-09 16:39:21 [...] 0-0 (BEAKER) (test code = 413) POCT-GLUCOSE [id number] 11:54:11 Test Item Value Reference Range Interpretation Comments POC-GLUCOSE METER 182 mg/dL 70-110 H : TESTED A T [facility] 6720 ([facility]) (test code = [facility], 1538) 85212: Special Education Aide/Techni aldo ID = [id number] for DE NNIS, WINNIE POCT-GLUCOSE [id number] 07:49:48 Test Item Value Reference Range Interpretation Comments POC-GLUCOSE METER 139 mg/dL 70-110 H : TESTED A T [facility] 6720 ([employer]) (test code = [facility], 1538) 35251: Special Education Aide/Techni aldo ID = [id number] for DE NNIS, WINNIE Venous doppler legs [id number] 07:38:03Ejection FractionSLEH ECHO HEARTLAB [facility] bilateral 2022-04-09 07:38:03Ejection FractionSLEH ECHO HEARTLAB MKCKESSON [facility] legs [id number] 07:38:03Ejection FractionSLEH ECHO HEARTLAB MKCK[facility]ON [facility] legs [id number] 07:38:03Ejection FractionSLEH ECHO HEARTLAB MKCKESSON [facility] do[facility] legs bilateral 2022-04-09 07:38:03Ejection FractionSLEH ECHO HEARTLAB MKCKESSON [facility] do[facility] legs [id number] 07:38:03Ejection FractionSLEH ECHO HEARTLAB MKCKESSON [facility] do[facility] legs [id number] 07:38:03Ejection FractionSLEH ECHO HEARTLAB MKCKESSON [facility]inoPHOSPHORUS2022-07-29 06:41:32 Test Item Value Reference Range Interpretation Comments PHOSPHORUS (BEAKER) (test code = 2.5 mg/dL 2.3-4.7 604) Special Education Aide ID - ELVIN WBASIC METABOLIC [id number] 06:41:31 Test Item Value Reference Range Interpretation [...] not appl icable for dialysis patien ts Special Education Aide ID - ELVIN [id number] 06:41:31 Test Item Value Reference Range Interpretation Comments MAGNESIUM (BEAKER) (test code = 4.3 mg/dL 1.6-2.6 H 627) Special Education Aide ID - ELVIN WCBC W/PLT COUNT & AUTO [id number] 06:12:33 Test Item Value Reference Range Interpretation [...] PERCENT (BEAKER) (test code = 2801) POCT-GLUCOSE [id number] 00:19:02 Test Item Value Reference Range Interpretation Comments POC-GLUCOSE METER 144 mg/dL 70-110 H : TESTED A T [facility] 6720 (BEAKER) (test code = [place] [facility], 1538) 90230: Special Education Aide/Techni aldo ID = [id number] for Sp Ashwin morales RAD, PELVIS, 1 OR 2 [id number] 23:03:00Reason for exam:->postop R hip hemion floor as not done in pacuShould this be performed at the bedside?->Yes [facility] : 1950 Sex: FFINAL REPORT RAD, PELVIS, [...] Peralta Verified Date/Time: 04/08/2022 23:03:37 BASIC METABOLIC [id number] 22:31:44 Test Item Value Reference Range Interpretation [...] not appl icable for dialysis patien ts Special Education Aide ID - [id number] 22:31:14 Test Item Value Reference Range Interpretation Comments MAGNESIUM (BEAKER) (test code = 1.6 mg/dL 1.6-2.6 627) Special Education Aide ID - [id number] 22:31:14 Test Item Value Reference Range Interpretation Comments PHOSPHORUS (BEAKER) (test code = 2.0 mg/dL 2.3-4.7 L 604) Special Education Aide ID - BSLACTIC ACID, [id number] 22:23:33 Test Item Value Reference Range Interpretation Comments LACTATE BLOOD VENOUS (2) (BEAKER) 1.96 mmol/L 0.50-2.20 (test code = 2872) Special Education Aide ID - BSCBC (HEMOGRAM ONLY)2022-04-08 22:07:28 Test [...] = 413) CBC W/PLT COUNT & AUTO [id number] 18:40:26 Test Item Value Reference Range Interpretation [...] (BEAKER) (test code = 2801) LACTIC ACID, [id number] 16:35:30 Test Item Value Reference Range Interpretation Comments LACTATE BLOOD VENOUS (2) (BEAKER) 3.04 mmol/L 0.50-2.20 H (test code = 7569) Special Education Aide ID - BSBASIC METABOLIC [id number] 16:24:06 Test Item Value Reference Range Interpretation [...] not appl icable for dialysis patien ts Special Education Aide ID - ADMINRAD, CHEST, 1 VIEW, NON [id number] 16:12:00Reason for exam:->dyspneaShould this be performed at the bedside?->Yes [facility] : 1950 Sex: FFINAL REPORT CLINICAL HISTORY: dyspnea TECHNIQUE: 1 view of the chest. COMPARISON: None IMPRESSION: There are no focal infiltrates or effusions. The cardiomediastinal silhouette is magnified by technique. The osseous structures appear intact. Signed: Derrick Ignacioeport Verified Date/Time: 04/08/2022 16:12:21 Reading Location: [facility] Radiology Reading Room Electronically signedby: DERRICK IGNACIO M.D. on 04/08/2022 04:12 PMPOCT-GLUCOSE METER 2022-04-08 15:31:41 Test Item Value Reference Range Interpretation Comments POC-GLUCOSE METER 208 mg/dL 70-110 H : TESTED A T [facility] 6720 (AI ExchangeAKER) (test code = [facility], 1538) 75961: Special Education Aide/Techni aldo ID = [id number] for Ma ster, Evangelina POCT-GLUCOSE [id number] 11:42:48 Test Item Value Reference Range Interpretation Comments POC-GLUCOSE METER 240 mg/dL 70-110 H : TESTED A T [facility] 6720 (BEAKER) (test code = [facility] [employer] [facility], 1538) 71606: Special Education Aide/Techni aldo ID = [id number] for Ma ster, Evangelina CT, EXTREMITY, LOWER WITHOUT CONTRAST, [id number] 08:41:00Unlisted Reason for Exam - Click Yes and Enter Reason Below->Yesevaluate for fractureUnlisted Reason for Exam->evaluate for fracture with cement extravasationPlease specify:->Femur [facility] : 1950 [...] Arrington Verified Date/Time: 04/08/2022 08:41:48 Reading Location: [facility] [id number] Ortho Consult Reading Room -GLUCOSE [id number] 17:39:33 Test Item Value Reference Range Interpretation Comments POC-GLUCOSE METER 102 mg/dL 70-110 : TESTED A T [facility] 6720 ([facility] (test code = [place] [facility], 1538) 18026: Special Education Aide/Techni aldo ID = [id number] for Wi lliams, Joana RAD, PELVIS, 1 OR 2 [id number] 16:39:00Reason for exam:->RIGHT HIP ARTHROPLASTYST. [facility]: [facility] : 1950 Sex: FFINAL REPORT Pelvis History provided: Right hip arthroplasty Components of right hip arthroplasty are in place. Left hip intact. Signed: Matt Ju[facility]rezhospital for special care Verified Date/Time: 6:39:06 Reading Location: [facility] Imaging Reading Room [place] [address] [address] [address] POCT-GLUCOSE [id number] 10:01:19 Test Item Value Reference Range Interpretation Comments POC-GLUCOSE METER 111 mg/dL 70-110 H : TESTED A T [facility] 6720 (BEAKER) (test code = [place], 1538) 20930: Special Education Aide/Techni aldo ID = [id number] for IMELDA JC CBC W/PLT COUNT & AUTO [id number] 07:15:22 Test Item Value Reference Range Interpretation [...] = 2801) Urinalysis w/Microscopic + Reflex to [id number] 06:45:42 Test Item Value Reference Range Interpretation Comments Color, UA (test code Yellow = 5778-6) Clarity, UA (test Clear code = 5767-9) Specific [place], UA 1.026 1.001-1.035 (test code = 5811-5) pH, UA (test code = 6.5 5.0-8.0 5803-2) Protein, UA (test 20 mg/dL Negative A code = 49676-0) Glucose, UA (test Negative Negative code = 365) Ketones, UA (test Negative Negative code = 2514-8) Bilirubin, UA (test Negative Negative code = 55532-7) Blood, UA (test code Trace Negative A = 02456-1) Nitrite, UA (test Negative Negative code = 5802-4) Leukocytes, UA (test Moderate Negative A code = 5799-2) Urobilinogen, UA 0.2 mg/dL 0.2-1.0 (test code = 54325-7) RBC, UA (test code = 12 See_Comment [Autom ated 68517-9) message] The system which generated this result [...] Bacteria, UA (test None Seen code = 09067-0) Mucus (test code = Occasional 8247-9) Squam Epithel, UA <1 See_Comment [Automate d (test code = 88838-3) messag e] The system which generated this result transmitted reference range : /HPF. The reference range was not used to interpret this result as normal/abnormal . Crystals, Urine (test None Seen code = 19222-0) Specimen Source (test code = 2795) TORRES (test code = TORRES) Special Education Aide ID - [auto]Special Education Aide ID - tech Lab Interpretation Abnormal (test code = 93159-4) [facility] + Reflex to Culture 2022-04-07 06:45:42 Test Item Value Reference Range Interpretation Comments Color, UA (test code Yellow = 5778-6) Clarity, UA (test Clear code = 5767-9) Specific [place], UA 1.026 1.001-1.035 (test code = 5811-5) pH, UA (test code = 6.5 5.0-8.0 5803-2) Protein, UA (test 20 mg/dL Negative A code = 20412-4) Glucose, UA (test Negative Negative code = 365) Ketones, UA (test Negative Negative code = 2514-8) Bilirubin, UA (test Negative Negative code = 25630-5) Blood, UA (test code Trace Negative A = 49231-0) Nitrite, UA (test Negative Negative code = 5802-4) Leukocytes, UA (test Moderate Negative A code = 5799-2) Urobilinogen, UA 0.2 mg/dL 0.2-1.0 (test code = 82005-8) RBC, UA (test code = 12 See_Comment [Autom ated 76535-7) message] The system which generated this result [...] Bacteria, UA (test None Seen code = 62144-4) Mucus (test code = Occasional 8247-9) Squam Epithel, UA <1 See_Comment [Automate d (test code = 41358-1) messag e] The system which generated this result transmitted reference range : /HPF. The reference range was not used to interpret this result as normal/abnormal . Crystals, Urine (test None Seen code = 02650-8) Specimen Source (test code = 2795) TORRES (test code = TORRES) Special Education Aide ID - [auto]Special Education Aide ID - tech Lab Interpretation Abnormal (test code = 88978-0) [facility] 2022-04-07 06:45:42 Test Item Value Reference Range Interpretation Comments Color, UA (test code Yellow = 5778-6) Clarity, UA (test Clear code = 5767-9) Specific [place], UA 1.026 1.001-1.035 (test code = 5811-5) pH, UA (test code = 6.5 5.0-8.0 5803-2) Protein, UA (test 20 mg/dL Negative A code = 99046-6) Glucose, UA (test Negative Negative code = 365) Ketones, UA (test Negative Negative code = 2514-8) Bilirubin, UA (test Negative Negative code = 76760-9) Blood, UA (test code Trace Negative A = 11408-4) Nitrite, UA (test Negative Negative code = 5802-4) Leukocytes, UA (test Moderate Negative A code = 5799-2) Urobilinogen, UA 0.2 mg/dL 0.2-1.0 (test code = 91840-8) RBC, UA (test code = 12 See_Comment [Autom ated 69968-1) message] The system which generated this result [...] Bacteria, UA (test None Seen code = 14711-6) Mucus (test code = Occasional 8247-9) Squam Epithel, UA <1 See_Comment [Automate d (test code = 30570-9) messag e] The system which generated this result transmitted reference range : /HPF. The reference range was not used to interpret this result as normal/abnormal . Crystals, Urine (test None Seen code = 08266-3) Specimen Source (test code = 2795) TORRES (test code = TORRES) Special Education Aide ID - [auto]Special Education Aide ID - tech Lab Interpretation Abnormal (test code = 03047-4) [facility] 2022-04-07 06:45:42 Test Item Value Reference Range Interpretation Comments Color, UA (test code Yellow = 5778-6) Clarity, UA (test Clear code = 5767-9) Specific [place], UA 1.026 1.001-1.035 (test code = 5811-5) pH, UA (test code = 6.5 5.0-8.0 5803-2) Protein, UA (test 20 mg/dL Negative A code = 55164-0) Glucose, UA (test Negative Negative code = 365) Ketones, UA (test Negative Negative code = 2514-8) Bilirubin, UA (test Negative Negative code = 75112-7) Blood, UA (test code Trace Negative A = 80193-5) Nitrite, UA (test Negative Negative code = 5802-4) Leukocytes, UA (test Moderate Negative A code = 5799-2) Urobilinogen, UA 0.2 mg/dL 0.2-1.0 (test code = 40873-4) RBC, UA (test code = 12 See_Comment [Autom ated 45515-9) message] The system which generated this result [...] Bacteria, UA (test None Seen code = 61045-0) Mucus (test code = Occasional 8247-9) Squam Epithel, UA See_Comment [Automate d (test code = 27101-7) messag e] The system which generated this result transmitted reference range : /HPF. The reference range was not used to interpret this result as normal/abnormal . Crystals, Urine (test None Seen code = 13133-9) Specimen Source (test code = 2795) TORRES (test code = TORRES) Special Education Aide ID - [auto]Special Education Aide ID - tech Lab Interpretation Abnormal (test code = 05562-5) [facility] 2022-04-07 06:45:42 Test Item Value Reference Range Interpretation Comments Color, UA (test code Yellow = 5778-6) Clarity, UA (test Clear code = 5767-9) Specific [place], UA 1.026 1.001-1.035 (test code = 5811-5) pH, UA (test code = 6.5 5.0-8.0 5803-2) Protein, UA (test 20 mg/dL Negative A code = 24716-7) Glucose, UA (test Negative Negative code = 365) Ketones, UA (test Negative Negative code = 2514-8) Bilirubin, UA (test Negative Negative code = 70083-3) Blood, UA (test code Trace Negative A = 76729-1) Nitrite, UA (test Negative Negative code = 5802-4) Leukocytes, UA (test Moderate Negative A code = 5799-2) Urobilinogen, UA 0.2 mg/dL 0.2-1.0 (test code = 55021-0) RBC, UA (test code = 12 See_Comment [Autom ated 73983-4) message] The system which generated this result [...] Bacteria, UA (test None Seen code = 75108-1) Mucus (test code = Occasional 8247-9) Squam Epithel, UA See_Comment [Automate d (test code = 67053-1) messag e] The system which generated this result transmitted reference range : /HPF. The reference range was not used to interpret this result as normal/abnormal . Crystals, Urine (test None Seen code = 12069-8) Specimen Source (test code = 2795) TORRES (test code = TORRES) Special Education Aide ID - [auto]Special Education Aide ID - tech Lab Interpretation Abnormal (test code = 30390-0) [facility] Culture 2022-04-07 06:45:42 Test Item Value Reference Range Interpretation Comments Color, UA (test code Yellow = 5778-6) Clarity, UA (test Clear code = 5767-9) Specific [place], UA 1.026 1.001-1.035 (test code = 5811-5) pH, UA (test code = 6.5 5.0-8.0 5803-2) Protein, UA (test 20 mg/dL Negative A code = 92217-7) Glucose, UA (test Negative Negative code = 365) Ketones, UA (test Negative Negative code = 2514-8) Bilirubin, UA (test Negative Negative code = 57959-7) Blood, UA (test code Trace Negative A = 50242-0) Nitrite, UA (test Negative Negative code = 5802-4) Leukocytes, UA (test Moderate Negative A code = 5799-2) Urobilinogen, UA 0.2 mg/dL 0.2-1.0 (test code = 60707-1) RBC, UA (test code = 12 See_Comment [Autom ated 04079-4) message] The system which generated this result [...] Bacteria, UA (test None Seen code = 66633-6) Mucus (test code = Occasional 8247-9) Squam Epithel, UA See_Comment [Automate d (test code = 37850-3) messag e] The system which generated this result transmitted reference range : /HPF. The reference range was not used to interpret this result as normal/abnormal . Crystals, Urine (test None Seen code = 93688-1) Specimen Source (test code = 2795) TORRES (test code = TORRES) Special Education Aide ID - [auto]Special Education Aide ID - tech Lab Interpretation Abnormal (test code = 95821-2) [facility] Ref[facility] Culture 2022-04-07 06:45:42 Test Item Value Reference Range Interpretation Comments Color, UA (test code Yellow = 5778-6) Clarity, UA (test Clear code = 5767-9) Specific [place], UA 1.026 1.001-1.035 (test code = 5811-5) pH, UA (test code = 6.5 5.0-8.0 5803-2) Protein, UA (test 20 mg/dL Negative A code = 16993-2) Glucose, UA (test Negative Negative code = 365) Ketones, UA (test Negative Negative code = 2514-8) Bilirubin, UA (test Negative Negative code = 92491-9) Blood, UA (test code Trace Negative A = 00656-5) Nitrite, UA (test Negative Negative code = 5802-4) Leukocytes, UA (test Moderate Negative A code = 5799-2) Urobilinogen, UA 0.2 mg/dL 0.2-1.0 (test code = 89439-3) RBC, UA (test code = 12 See_Comment [Autom ated 81288-8) message] The system which generated this result [...] Bacteria, UA (test None Seen code = 13102-7) Mucus (test code = Occasional 8247-9) Squam Epithel, UA See_Comment [Automate d (test code = 45848-6) messag e] The system which generated this result transmitted reference range : /HPF. The reference range was not used to interpret this result as normal/abnormal . Crystals, Urine (test None Seen code = 74933-1) Specimen Source (test code = 2795) TORRES (test code = TORRES) Special Education Aide ID - [auto]Special Education Aide ID - tech Lab Interpretation Abnormal (test code = 85371-3) [facility] [id number] 06:45:42 Test Item Value Reference Range Interpretation [...] = 1521) SOURCE(BEAKER) (test code = 2795) Special Education Aide ID - [auto]Special Education Aide ID - techBASIC METABOLIC [id number] 06:11:49 Test Item Value Reference Range Interpretation [...] S NOT APPLICABLE FOR DIALYSIS PATIEN TS. Special Education Aide ID - ELVIN WSARS-COV2/RT-PCR ([facility])2022-04-07 04:44:08 Test Item Value Reference Range Interpretation Comments SARS-COV2/RT-PCR (test Negative Not Detected, Negative, code = 6780800) See external report for linked test SARS-COV-[address] PERFORMING [address] [facility] (test code = 3852639) Negative result for this test determines that [...] of the Act.Fact Sheet for Healthcare Prov iders:https://www.F[employer]/sites/default/files/product/documents/Fact_Sheet_HC _Pvgxbzaou_Ntor_HVQS-QuC-5.pdfFact Sheet for Healthcare Patients:https://www.[employer]/sites/default/files/product/docume nts/Ngml_Oqcoy_Jviryoqw_Efam_CFNR-HeG-7.pdfPerforming Laboratory:[place] [address], [place] [address]FXHE. METABOLIC PANEL (79351)2021-07-24 17:14:29 Test Item Value Reference Range Interpretation Comments NA (test code = 139 mmol/L 135-145 3597699354) K (test code = 4.3 mmol/L 3.5-5.0 9131512926) CL (test code = 104 mmol/L 98-108 0228363921) CO2 TOTAL (test code = 24 mmol/L 23-31 8906820636) AGAP (test code = 2-16 9021319603) BUN (test code = 18 mg/dL 7-23 7667707003) GLUCOSE (test code = 104 mg/dL 70-110 3496478562) CREATININE (test code = 1.39 mg/dL 0.50-1.04 H 1273855611) TOTAL BILI (test code = 0.4 mg/dL 0.1-1.7 2886309290) CALCIUM (test code = 9.6 mg/dL 8.6-10.6 2596044399) T PROTEIN (test code = 8.4 g/dL 6.3-8.2 H 4317124870) ALBUMIN (test code = 4.6 g/dL 3.5-5.0 4721532189) ALK PHOS (test code = 93 U/L 34-122 2107115574) ALTv (test code = 44 U/L 5-35 H 1742-6) AST(SGOT) (test code = 48 U/L 13-40 H 1595493958) eGFR (test code = mL/min/1.73m2 1282334593) TORRES (test code = TORRES) Association of [...] tests). Lab Interpretation Abnormal (test code = 40084-1) [facility]13[facility] Test Item Value Reference Range Interpretation Comments LIPASE (test code = 6828020420) 266 U/L 0-220 H Lab Interpretation (test code = Abnormal 83619-4) [facility] WITH [id number] 17:03:27 Test Item Value Reference Range Interpretation [...] RDW-SD (test code = 48.4 fL 39.0-49.9 43497-3) RDW-CV (test code = 13.8 % 12.0-15.5 788-0) PLT (test code = See_Comment [Automated 777-3) message] The sy stem which generated this result transmitted reference range : 166 - 358 10*3/ ?L. The reference r becca was not used to interpret this result as normal/abnormal . MPV (test code = 9.1 fL 9.5-12.9 L 07969-6) NRBC/100 WBC (test See_Comment [Automat ed code = 8239234117) message] The system which generated this result transmitted reference range : 0.0 - 10.0 /100 WBCs. The refer ence range was not u sed to interpret th is result as normal/abnormal . NRBC x10^3 (test code <0.01 See_Comment [Auto mated = 4733670349) message] The s ystem which generated this result transmitted reference range : 10*3/?L. The reference range was not used to interpret this result as normal/abnormal . GRAN MAT (NEUT) % 64.8 % (test code = 770-8) IMM GRAN % (test code 0.90 % = 4804351330) LYMPH % (test code = 24.2 % 736-9) MONO % (test code = 8.2 % 5905-5) EOS % (test code = 1.4 % 713-8) BASO % (test code = 0.5 % 706-2) GRAN MAT x10^3(ANC) 5.59 10*3/uL 1.88-7.09 (test code = 0950824913) IMM GRAN x10^3 (test 0.08 10*3/uL 0.00-0.06 H code = 3354642506) LYMPH x10^3 (test code 2.09 10*3/uL 1.32-3.29 = 731-0) MONO x10^3 (test code 0.71 10*3/uL 0.33-0.92 = 742-7) EOS x10^3 (test code = 0.12 10*3/uL 0.03-0.39 711-2) BASO x10^3 (test code 0.04 10*3/uL 0.01-0.07 = 704-7) Lab Interpretation Abnormal (test code = 94935-0) [facility] [id number] 07:08:00 Test Item Value Reference Range Interpretation Comments Sodium (test code = 139 meq/L 515-712 1897-2) Potassium (test 4.1 meq/L 3.5-5.1 code = 2823-3) Chloride (test code 107 meq/L 98-107 = 2075-0) CO2 (test code = 25 meq/L -2027-9) BUN (test code = 13 mg/dL 7- 3094-0) Creatinine (test 0.97 mg/dL 0.57-1.25 code = 2160-0) Glucose (test code 80 mg/dL 70-105 = 2345-7) Calcium (test code 8.9 mg/dL 8.4-10.2 = 46946-5) EGFR (test code = 56 mL/min/1.[address] [place] [address]-6) NOT ACCURATE CREATININE CLEARANCE IN PREDICTING GLOMERULAR FILTRATION RATE . ESTIMATED GFR I S NOT APPLICABLE FOR DIALYSIS PATIEN TORRES (test code = Special Education Aide ID - TORRES) RADHAJOVANNI Doug [facility] function [id number] 07:08:00 Test Item Value Reference Range Interpretation Comments Protein, Total (test 6.9 See_Comment [Autom ated code = 2885-2) message] The system which generated this result transmit lane reference range : 6.0 - 8.3 gm/dL . The reference range was not u sed to interpret th is result as normal/abnormal . Albumin (test code = 3.6 g/dL 3.5-5 39665-0) Total Bilirubin (test 0.3 mg/dL 0.2-1.2 code = 1974-2) Bilirubin, Direct 0.2 mg/dL 0.1-0.5 (test code = 1967-7) Alkaline Phosphatase 56 U/L 40-150 (test code = 6768-6) AST (test code = 37 U/L 5-34 H 1920-8) ALT (test code = 50 U/L 6-55 1742-6) TORRES (test code = TORRES) Special Education Aide ID - TOÑITO Camacho Lab Interpretation Abnormal (test code = 42711-2) [facility] [id number] 07:08:00 Test Item Value Reference Range Interpretation Comments Sodium (test code = 139 meq/L 668-335 2678-2) Potassium (test 4.1 meq/L 3.5-5.1 code = 2823-3) Chloride (test code 107 meq/L 98-107 = 2075-0) CO2 (test code = 25 meq/L 22-29 2027-9) BUN (test code = 13 mg/dL 7-21 3094-0) Creatinine (test 0.97 mg/dL 0.57-1.25 code = 2160-0) Glucose (test code 80 mg/dL 70-105 = 2345-7) Calcium (test code 8.9 mg/dL 8.4-10.2 = 90662-6) EGFR (test code = 56 mL/min/1.[address] [place] [address]-7) NOT ACCURATE CREATININE CLEARANCE IN PREDICTING GLOMERULAR FILTRATION RATE . ESTIMATED GFR I S NOT APPLICABLE FOR DIALYSIS PATIEN TORRES (test code = Special Education Aide ID - TORRES) TOÑITO Camacho [facility] [id number] 07:08:00 Test Item Value Reference Range Interpretation Comments Protein, Total (test 6.9 See_Comment [Autom ated code = 2885-2) message] The system which generated this result transmit lane reference range : 6.0 - 8.3 gm/dL . The reference range was not u sed to interpret th is result as normal/abnormal . Albumin (test code = 3.6 g/dL 3.5-5 69139-1) Total Bilirubin (test 0.3 mg/dL 0.2-1.2 code = 1974-2) Bilirubin, Direct 0.2 mg/dL 0.1-0.5 (test code = 1967-7) Alkaline Phosphatase 56 U/L 40-150 (test code = 6768-6) AST (test code = 37 U/L 5-34 H 1920-8) ALT (test code = 50 U/L 6-55 1742-6) TORRES (test code = TORRES) Special Education Aide ID - TOÑITO Camacho Lab Interpretation Abnormal (test code = 22494-5) [facility] [id number] 07:08:00 Test Item Value Reference Range Interpretation Comments Sodium (test code = 139 meq/L 086-764 2264-2) Potassium (test 4.1 meq/L 3.5-5.1 code = 2823-3) Chloride (test code 107 meq/L 98-107 = 2075-0) CO2 (test code = 25 meq/L 22-29 2027-9) BUN (test code = 13 mg/dL 7-21 3094-0) Creatinine (test 0.97 mg/dL 0.57-1.25 code = 2160-0) Glucose (test code 80 mg/dL 70-105 = 2345-7) Calcium (test code 8.9 mg/dL 8.4-10.2 = 21205-3) EGFR (test code = 56 mL/min/1.[address] [place] [address]-6) NOT ACCURATE CREATININE CLEARANCE IN PREDICTING GLOMERULAR FILTRATION RATE . ESTIMATED GFR I S NOT APPLICABLE FOR DIALYSIS PATIEN TS. TORRES (test code = Special Education Aide ID - TORRES) TOÑITO Camacho [facility] [id number] 07:08:00 Test Item Value Reference Range Interpretation Comments Protein, Total (test 6.9 See_Comment [Autom ated code = 2885-2) message] The system which generated this result transmit lane reference range : 6.0 - 8.3 gm/dL . The reference range was not u sed to interpret th is result as normal/abnormal . Albumin (test code = 3.6 g/dL 3.5-5 66618-8) Total Bilirubin (test 0.3 mg/dL 0.2-1.2 code = 1974-2) Bilirubin, Direct 0.2 mg/dL 0.1-0.5 (test code = 1967-7) Alkaline Phosphatase 56 U/L 40-150 (test code = 6768-6) AST (test code = 37 U/L 5-34 H 1920-8) ALT (test code = 50 U/L 6-55 1742-6) TORRES (test code = TORRES) Special Education Aide ID - TOÑITO Camacho Lab Interpretation Abnormal (test code = 35425-8) [facility] [id number] 07:08:00 Test Item Value Reference Range Interpretation Comments Sodium (test code = 139 meq/L 736-693 9667-2) Potassium (test 4.1 meq/L 3.5-5.1 code = 2823-3) Chloride (test code 107 meq/L 98-107 = 2075-0) CO2 (test code = 25 meq/L 22-29 2027-9) BUN (test code = 13 mg/dL 7-21 3094-0) Creatinine (test 0.97 mg/dL 0.57-1.25 code = 2160-0) Glucose (test code 80 mg/dL 70-105 = 2345-7) Calcium (test code 8.9 mg/dL 8.4-10.2 = 52343-6) EGFR (test code = 56 mL/min/1.[address] [place] [address]-9) NOT ACCURATE CREATININE CLEARANCE IN PREDICTING GLOMERULAR FILTRATION RATE . ESTIMATED GFR I S NOT APPLICABLE FOR DIALYSIS PATIEN TS. TORRES (test code = Special Education Aide ID - TORRES) TOÑITO Camacho [facility] function [id number] 07:08:00 Test Item Value Reference Range Interpretation Comments Protein, Total (test 6.9 See_Comment [Autom ated code = 2885-2) message] The system which generated this result transmit lane reference range : 6.0 - 8.3 gm/dL . The reference range was not u sed to interpret th is result as normal/abnormal . Albumin (test code = 3.6 g/dL 3.5-5 02121-4) Total Bilirubin (test 0.3 mg/dL 0.2-1.2 code = 1975-2) Bilirubin, Direct 0.2 mg/dL 0.1-0.5 (test code = 1968-7) Alkaline Phosphatase 56 U/L 40-150 (test code = 6768-6) AST (test code = 37 U/L 5-34 H 1920-8) ALT (test code = 50 U/L 6-55 1742-6) TORRES (test code = TORRES) Special Education Aide ID - TOÑITO Camacho Lab Interpretation Abnormal (test code = 86205-7) [facility] [id number] 07:08:00 Test Item Value Reference Range Interpretation [...] S NOT APPLICABLE FOR DIALYSIS PATIEN TS. Special Education Aide ID - TOÑITO LHEPATIC FUNCTION [id number] 07:08:00 Test Item Value Reference Range Interpretation [...] (test code = 50 U/L 6-55 347) Special Education Aide ID - TOÑITO CARUSO with platelet count + automated [id number] 06:01:00 Test Item Value Reference Range Interpretation Comments WBC (test code = 6690-2) 7.9 See_Comment [A utomated message] The system [employer] generated this result transmitted ref erence range: 3.5 - 10 .5 K/L. The refe rence range was not u sed to interpret this result as normal/abnor mal. RBC (test code = 789-8) 3.22 See_Comment L [Au tomated message] The system [employer] generated this result transmitted ref erence range: 3.93 - 5 .22 M/L. The refe rence range was not u sed to interpret this result as normal/abnor mal. MCHC (test code = 786-4) 31.8 See_Comment L [A utomated message] The system [employer] generated this result transmitted ref erence range: [...] See_Comment [Aut omated message] 777-3) The system [employer] generated this result transmitted ref erence range: 150 - 45 0 K/CU MM. The referen ce range was not u sed to interpret this result as normal/abnor mal. MPV (test code = 8.9 fL 9.4-12.3 L 67811-9) nRBC (test code = 413) 0 See_Comment [Aut omated message] The system [employer] generated this result transmitted ref erence range: [...] See_Comment [Aut omated message] 670) The system [employer] generated this result transmitted ref erence range: 1.56 - 6 .13 K/L. The refe rence range was not u sed to interpret this result as normal/abnor mal. # Lymphs (test code = 2.20 See_Comment [Auto mated message] 414) The system [employer] generated this result transmitted ref erence range: 1.18 - 3 .74 K/L. The refe rence range was not u sed to interpret this result as normal/abnor mal. # Monos (test code = 0.54 See_Comment H [Autom ated message] 415) The system [employer] generated this result transmitted ref erence range: 0.24 - 0 .36 K/L. The refe rence range was not u sed to interpret this result as normal/abnor mal. # Eos (test code = 416) 0.08 See_Comment [Au tomated message] The system [employer] generated this result transmitted ref erence range: 0.04 - 0 .36 K/L. The refe rence range was not u sed to interpret this result as normal/abnor mal. # Baso (test code = 417) 0.03 See_Comment [A utomated message] The system [employer] generated this result transmitted ref erence range: 0.01 - 0 .08 K/L. The refe rence range was not u sed to interpret this result as normal/abnor mal. Immature 0 % 0-1 Granulocytes-Relative (test code = 2801) Lab Interpretation (test Abnormal code = 54527-9) [facility] + automated [id number] 06:01:00 Test Item Value Reference Range Interpretation Comments WBC (test code = 6690-2) 7.9 See_Comment [A utomated message] The system [employer] generated this result transmitted ref erence range: 3.5 - 10 .5 K/L. The refe rence range was not u sed to interpret this result as normal/abnor mal. RBC (test code = 789-8) 3.22 See_Comment L [Au tomated message] The system [employer] generated this result transmitted ref erence range: 3.93 - 5 .22 M/L. The refe rence range was not u sed to interpret this result as normal/abnor mal. MCHC (test code = 786-4) 31.8 See_Comment L [A utomated message] The system [employer] generated this result transmitted ref erence range: [...] code = 282 See_Comment [Aut omated message] 727-3) The system [employer] generated this result transmitted ref erence range: 150 - 45 0 K/CU MM. The referen ce range was not u sed to interpret this result as normal/abnor mal. MPV (test code = 8.9 fL 9.4-12.3 L 08809-7) nRBC (test code = 413) 0 See_Comment [Aut omated message] The system [employer] generated this result transmitted ref erence range: [...] See_Comment [Aut omated message] 670) The system [employer] generated this result transmitted ref erence range: 1.56 - 6 .13 K/L. The refe rence range was not u sed to interpret this result as normal/abnor mal. # Lymphs (test code = 2.20 See_Comment [Auto mated message] 414) The system [employer] generated this result transmitted ref erence range: 1.18 - 3 .74 K/L. The refe rence range was not u sed to interpret this result as normal/abnor mal. # Monos (test code = 0.54 See_Comment H [Autom ated message] 415) The system [employer] generated this result transmitted ref erence range: 0.24 - 0 .36 K/L. The refe rence range was not u sed to interpret this result as normal/abnor mal. # Eos (test code = 416) 0.08 See_Comment [Au tomated message] The system [employer] generated this result transmitted ref erence range: 0.04 - 0 .36 K/L. The refe rence range was not u sed to interpret this result as normal/abnor mal. # Baso (test code = 417) 0.03 See_Comment [A utomated message] The system [employer] generated this result transmitted ref erence range: 0.01 - 0 .08 K/L. The refe rence range was not u sed to interpret this result as normal/abnor mal. Immature 0 % 0-1 Granulocytes-Relative (test code = 2801) Lab Interpretation (test Abnormal code = 25466-2) [facility] with platelet count + automated [id number] 06:01:00 Test Item Value Reference Range Interpretation Comments WBC (test code = 6690-2) 7.9 See_Comment [A utomated message] The system [employer] generated this result transmitted ref erence range: 3.5 - 10 .5 K/L. The refe rence range was not u sed to interpret this result as normal/abnor mal. RBC (test code = 789-8) 3.22 See_Comment L [Au tomated message] The system [employer] generated this result transmitted ref erence range: 3.93 - 5 .22 M/L. The refe rence range was not u sed to interpret this result as normal/abnor mal. MCHC (test code = 786-4) 31.8 See_Comment L [A utomated message] The system [employer] generated this result transmitted ref erence range: [...] See_Comment [Aut omated message] 777-3) The system [employer] generated this result transmitted ref erence range: 150 - 45 0 K/CU MM. The referen ce range was not u sed to interpret this result as normal/abnor mal. MPV (test code = 8.9 fL 9.4-12.3 L 15954-9) nRBC (test code = 413) 0 See_Comment [Aut omated message] The system [employer] generated this result transmitted ref erence range: [...] See_Comment [Aut omated message] 670) The system [employer] generated this result transmitted ref erence range: 1.56 - 6 .13 K/L. The refe rence range was not u sed to interpret this result as normal/abnor mal. # Lymphs (test code = 2.20 See_Comment [Auto mated message] 414) The system [employer] generated this result transmitted ref erence range: 1.18 - 3 .74 K/L. The refe rence range was not u sed to interpret this result as normal/abnor mal. # Monos (test code = 0.54 See_Comment H [Autom ated message] 415) The system Commtimize generated this result transmitted ref erence range: 0.24 - 0 .36 K/L. The refe rence range was not u sed to interpret this result as normal/abnor mal. # Eos (test code = 416) 0.08 See_Comment [Au tomated message] The system [employer] generated this result transmitted ref erence range: 0.04 - 0 .36 K/L. The refe rence range was not u sed to interpret this result as normal/abnor mal. # Baso (test code = 417) 0.03 See_Comment [A utomated message] The system [employer] generated this result transmitted ref erence range: 0.01 - 0 .08 K/L. The refe rence range was not u sed to interpret this result as normal/abnor mal. Immature 0 % 0-1 Granulocytes-Relative (test code = 2801) Lab Interpretation (test Abnormal code = 83913-7) [facility] with platelet count + automated [id number] 06:01:00 Test Item Value Reference Range Interpretation Comments WBC (test code = 6690-2) 7.9 See_Comment [A utomated message] The system [employer] generated this result transmitted ref erence range: 3.5 - 10 .5 K/L. The refe rence range was not u sed to interpret this result as normal/abnor mal. RBC (test code = 789-8) 3.22 See_Comment L [Au tomated message] The system [employer] generated this result transmitted ref erence range: 3.93 - 5 .22 M/L. The refe rence range was not u sed to interpret this result as normal/abnor mal. MCHC (test code = 786-4) 31.8 See_Comment L [A utomated message] The system [employer] generated this result transmitted ref erence range: [...] See_Comment [Aut omated message] 777-3) The system [employer] generated this result transmitted ref erence range: 150 - 45 0 K/CU MM. The referen ce range was not u sed to interpret this result as normal/abnor mal. MPV (test code = 8.9 fL 9.4-12.3 L 38197-8) nRBC (test code = 413) 0 See_Comment [Aut omated message] The system [employer] generated this result transmitted ref erence range: [...] See_Comment [Aut omated message] 670) The system [employer] generated this result transmitted ref erence range: 1.56 - 6 .13 K/L. The refe rence range was not u sed to interpret this result as normal/abnor mal. # Lymphs (test code = 2.20 See_Comment [Auto mated message] 414) The system [employer] generated this result transmitted ref erence range: 1.18 - 3 .74 K/L. The refe rence range was not u sed to interpret this result as normal/abnor mal. # Monos (test code = 0.54 See_Comment H [Autom ated message] 415) The system [employer] generated this result transmitted ref erence range: 0.24 - 0 .36 K/L. The refe rence range was not u sed to interpret this result as normal/abnor mal. # Eos (test code = 416) 0.08 See_Comment [Au tomated message] The system [employer] generated this result transmitted ref erence range: 0.04 - 0 .36 K/L. The refe rence range was not u sed to interpret this result as normal/abnor mal. # Baso (test code = 417) 0.03 See_Comment [A utomated message] The system [employer] generated this result transmitted ref erence range: 0.01 - 0 .08 K/L. The refe rence range was not u sed to interpret this result as normal/abnor mal. Immature 0 % 0-1 Granulocytes-Relative (test code = 2801) Lab Interpretation (test Abnormal code = 79832-3) [facility] W/PLT COUNT & AUTO [id number] 06:01:00 Test Item Value Reference Range Interpretation [...] (BEAKER) (test code = 2801) ECG 12 [id number] 06:47:19Interface, External Ris In - 05/05/2021 6:47 AM CDTVentricular Rate 91 BPMAtrial Rate 91 BPMP-R Interval 126 msQRS Duration 78 msQ-T Interval 352 msQTC Calculation(Bazett) 432 msP [place] 44 degreesR Axis28 degreesT [place] 39 degreesNormal sinus rhythmNormal ECGNo previous ECGs availableConfirmed by MD MIA, TEMI Mcnulty ([id number]) on 05/05/2021 6:47:15 [facility] [id number] 06:47:19Interface, External Ris In 05/05/2021 6:47 AM CDTVentricular Rate 91 BPMAtrial Rate 91 BPMP-R Interval 126 msQRS Duration 78 msQ-T Interval 352 msQTC Calculation(Bazett) 432 msP [place] 44 degreesR Axis28 degreesT [place] 39 degreesNormal sinus rhythmNormal ECGNo previous ECGs availableConfirmed by MD BELLAMY JOSEPH P ([id number]) on 05/05/2021 6:47:15 [facility] [id number] 06:47:19Interface, External Ris In - 05/05/2021 6:47 AM CDTVentricular Rate 91 BPMAtrial Rate 91 BPMP-R Interval 126 msQRS Duration 78 msQ-T Interval 352 msQTC Calculation(Bazett) 432 msP [place] 44 degreesR Axis28 degreesT [place] 39 degreesNormal sinus rhythmNormal ECGNo previous ECGs availableConfirmed by MD BELLAMY JOSEPH P ([id number]) on 05/05/2021 6:47:15 [facility] ECG 12 [id number] 06:47:19Interface, External Ris In - 05/05/2021 6:47 AM CDTVentricular Rate 91 BPMAtrial Rate 91 BPMP-R Interval 126 msQRS Duration 78 msQ-T Interval 352 msQTC Calculation(Bazett) 432 msP [place] 44 degreesR Axis28 degreesT [place] 39 degreesNormal sinus rhythmNormal ECGNo previous ECGs availableConfirmed by MD BELLAMY JOSEPH P ([id number]) on 05/05/2021 6:47:15 [facility], [id number] 06:17:00 Test Item Value Reference Range Interpretation Comments ABO Grouping (test code = 2588) O Rh Factor (test code = 2589) POS [facility], [id number] 06:17:00 Test Item Value Reference Range Interpretation Comments ABO Grouping (test code = 2588) O Rh Factor (test code = 2589) POS [facility], [id number] 06:17:00 Test Item Value Reference Range Interpretation Comments ABO Grouping (test code = 2588) O Rh Factor (test code = 2589) POS [facility], [id number] 06:17:00 Test Item Value Reference Range Interpretation Comments ABO Grouping (test code = 2588) O Rh Factor (test code = 2589) [facility] ([facility]) 2021-05-05 05:01:00 Test Item Value Reference Range Interpretation Comments ABO/RH AUTOMATED (BEAKER) (test O POSITIVE code = 2260) Ab Scrn (test code = 890-4) NEGATIVE [facility] ([facility]) 2021-05-05 05:01:00 Test Item Value Reference Range Interpretation Comments ABO/RH AUTOMATED (BEAKER) (test O POSITIVE code = 2260) Ab Scrn (test code = 890-4) NEGATIVE [facility] ([facility]) 2021-05-05 05:01:00 Test Item Value Reference Range Interpretation Comments ABO/RH AUTOMATED (BEAKER) (test O POSITIVE code = 2260) Ab Scrn (test code = 890-4) NEGATIVE [facility] ([facility]) 2021-05-05 05:01:00 Test Item Value Reference Range Interpretation Comments ABO/RH AUTOMATED (BEAKER) (test O POSITIVE code = 2260) Ab Scrn (test code = 890-4) NEGATIVE [facility]PT/[id number] 04:35:00 Test Item Value Reference Interpretation Comments [...] valves. Lab Interpretation Normal (test code = 60691-7) [facility]PT/[id number] 04:35:00 Test Item Value Reference Interpretation Comments [...] valves. Lab Interpretation Normal (test code = 25303-5) [facility]PT/[id number] 04:35:00 Test Item Value Reference Interpretation Comments [...] valves. Lab Interpretation Normal (test code = 08638-5) [facility]PT/[id number] 04:35:00 Test Item Value Reference Interpretation Comments [...] valves. Lab Interpretation Normal (test code = 38118-9) [facility] CenterPROTHROMBIN TIME/[id number] 04:35:00 Test Item Value Reference Range Interpretation Comments PROTIME (BEAKER) 13.7 seconds 11.9-14.2 (test code = 759) INR (BEAKER) (test 1.07 See_Comment [Automat ed message] code = 370) The system Com[employer] generated this result transmitted ref erence range: <=5.90. The reference range was not used to int erpret this result as normal/abnormal . RECOMMENDED COUMADIN/WARFARIN INR THERAPY RANGESSTANDARD DOSE: 2.0 - 3.0 Includes: PROPHYLAXIS for venous thrombosis, systemic embolization; TREATMENT for venous thrombosis and/or pulmonary embolus.HIGH RISK: Target INR is 2.5-3.5 for patients with mechanical heart valves.High Sensitivity Troponin [id number] 01:56:00 Test Item Value Reference Range Interpretation Comments Troponin I HS (test <4 See_Comment [Automa lane code = 90269-4) message] The system which generated this result transmitted reference range : <=17 pg/ml. The reference range was not used to interpret this result as normal/abnormal . TORRES (test code = Special Education Aide ID - TORRES) DBThe ASSOCIATE MATERIAL HANDLER STAT High Sensitivity Troponin-I results should be used in conjunction with other diagnostic information such as ECG, clinical observations and information, and patient symptoms to aid in the diagnosis of [place]. Lab Interpretation Normal (test code = 35912-9) [facility] Troponin [id number] 01:56:00 Test Item Value Reference Range Interpretation Comments Troponin I HS (test <4 See_Comment [Aut[place] lane code = 72692-9) message] The system which generated this result transmitted reference range : <=17 pg/ml. The reference range was not used to interpret this result as normal/abnormal . TORRES (test code = Special Education Aide ID - TORRES) DBThe ASSOCIATE MATERIAL HANDLER STAT High Sensitivity Troponin-I results should be used in conjunction with other diagnostic information such as ECG, clinical observations and information, and patient symptoms to aid in the diagnosis of [place]. Lab Interpretation Normal (test code = 80311-8) [facility] Troponin [id number] 01:56:00 Test Item Value Reference Range Interpretation Comments Troponin I HS (test <4 See_Comment [Autom ated code = 91361-3) message] The system which generated this result transmitted reference range : <=17 pg/ml. The reference range was not used to interpret this result as normal/abnormal . TORRES (test code = Special Education Aide ID - TORRES) DBThe ASSOCIATE MATERIAL HANDLER STAT High Sensitivity Troponin-I results should be used in conjunction with other diagnostic information such as ECG, clinical observations and information, and patient symptoms to aid in the diagnosis of [place]. Lab Interpretation Normal (test code = 48810-6) [facility] Troponin [id number] 01:56:00 Test Item Value Reference Range Interpretation Comments Troponin I HS (test <4 See_Comment [Aut[place] lane code = 30715-1) message] The system which generated this result transmitted reference range : <=17 pg/ml. The reference range was not used to interpret this result as normal/abnormal . TORRES (test code = Special Education Aide ID - TORRES) DBThe ASSOCIATE MATERIAL HANDLER STAT High Sensitivity Troponin-I results should be used in conjunction with other diagnostic information such as ECG, clinical observations and information, and patient symptoms to aid in the diagnosis of [place]. Lab Interpretation Normal (test code = 18668-9) [facility] CenterH[facility]ENSITIVITY TROPONIN [id number] 01:56:00 Test Item Value Reference Range Interpretation Comments HIGH SENSITIVITY < pg/ml See_Comment [Automated message] TROPONIN I (test code = The system which 2677622) generated this result transmitted ref erence range: <=17. Th e reference range was not used to interpr et this result as normal/abnormal . Special Education Aide ID - DBThe ASSOCIATE MATERIAL HANDLER STAT High Sensitivity Troponin-I results should be used in conjunctionwith other diagnostic information such as ECG, clinical observations and information, and patient symptoms to aid in the diagnosis of [place].Ketones, [id number] 01:40:00 Test Item Value Reference Range Interpretation Comments Ketones, Blood (test code = 1103) 0.4 mmol/L <0.4 H Lab Interpretation (test code = Abnormal 68245-9) [facility]2021-08-24 01:40:00 Test Item Value Reference Range Interpretation Comments Ketones, Blood (test code = 1103) 0.4 mmol/L <0.4 H Lab Interpretation (test code = Abnormal 59384-5) [facility] [id number] 01:40:00 Test Item Value Reference Range Interpretation Comments Ketones, Blood (test code = 1103) 0.4 mmol/L <0.4 H Lab Interpretation (test code = Abnormal 57425-9) [facility]2021-08-24 01:40:00 Test Item Value Reference Range Interpretation Comments Ketones, Blood (test code = 1103) 0.4 mmol/L <0.4 H Lab Interpretation (test code = Abnormal 41001-1) [facility]2021-08-24 01:40:00 Test Item Value Reference Range Interpretation Comments KETONES, BLOOD (BEAKER) (test code 0.4 mmol/L <0.4 H = 1103) SARS-CoV2/RT-PCR (Asymptomatic ONLY)2021-05-05 01:30:00 Test Item Value Reference Interpretation Comments Range SARS-COV2/RT-PCR Negative Negative The SARS-Co V-2 (test code = target nucleic 20297-9) acids are not detected in thi s [...] revoked sooner. Fact Sheet for Healthcare Providers: https://www.Chapatiz/Documents/Xp ert%20Xpress%20SAR S%20CoV-2/Fact%20S heets/302-3802%20S ARS-COV-2%20HEALTH CARE%20PROVIDERS%2 0FACT%20SHEET.pdf Fact Sheet for Healthcare Patients: https://wwwEnviance/Documents/Xp ert%20Xpress%20SAR S%20CoV-2/Fact%20S heets/302-3801%20S ARS-COV-2%20PATIEN T%20FACT%20SHEET.p df Lab Interpretation Normal (test code = 98752-0) [facility]2021-05-05 01:30:00 Test Item Value Reference Interpretation Comments Range SARS-COV2/RT-PCR Negative Negative The SARS-Co V-2 (test code = target nucleic 95276-6) acids are not detected in thi s [...] revoked sooner. Fact Sheet for Healthcare Providers: https://www.Chapatiz/Documents/Xp ert%20Xpress%20SAR S%20CoV-2/Fact%20S heets/302-3802%20S ARS-COV-2%20HEALTH CARE%20PROVIDERS%2 0FACT%20SHEET.pdf Fact Sheet for Healthcare Patients: https://wwwEnviance/Documents/Xp ert%20Xpress%20SAR S%20CoV-2/Fact%20S heets/302-3801%20S ARS-COV-2%20PATIEN T%20FACT%20SHEET.p df Lab Interpretation Normal (test code = 68554-5) [facility]omatic ONLY[facility]2021-05-05 01:30:00 Test Item Value Reference Interpretation Comments Range SARS-COV2/RT-PCR Negative Negative The SARS-Co V-2 (test code = target nucleic 31042-4) acids are not detected in thi s [...] revoked sooner. Fact Sheet for Healthcare Providers: https://www.Chapatiz/Documents/Xp ert%20Xpress%20SAR S%20CoV-2/Fact%20S heets/302-3802%20S ARS-COV-2%20HEALTH CARE%20PROVIDERS%2 0FACT%20SHEET.pdf Fact Sheet for Healthcare Patients: https://www.Chapatiz/Documents/Xp ert%20Xpress%20SAR S%20CoV-2/Fact%20S heets/302-3801%20S ARS-COV-2%20PATIEN T%20FACT%20SHEET.p df Lab Interpretation Normal (test code = 46215-0) [facility]2021-05-05 01:30:00 Test Item Value Reference Interpretation Comments Range SARS-COV2/RT-PCR Negative Negative The SARS-Co V-2 (test code = target nucleic 85137-3) acids are not detected in thi s [...] revoked sooner. Fact Sheet for Healthcare Providers: https://www.Chapatiz/Documents/Xp ert%20Xpress%20SAR S%20CoV-2/Fact%20S heets/302-3802%20S ARS-COV-2%20HEALTH CARE%20PROVIDERS%2 0FACT%20SHEET.pdf Fact Sheet for Healthcare Patients: https://www.Chapatiz/Documents/Xp ert%20Xpress%20SAR S%20CoV-2/Fact%20S heets/302-3801%20S ARS-COV-2%20PATIEN T%20FACT%20SHEET.p df Lab Interpretation Normal (test code = 59071-0) [facility])2021-05-05 01:30:00 Test Item Value Reference Range Interpretation Comments SARS-COV2/RT-PCR Negative Negative The SARS-Co V-2 target (test code = nucleic acids a re not 4401656) detected in thi s specimen. Negative result [...] revoked sooner. Fact Sheet for Healthcare Providers: https://www.Strobe m/Documents/Xpert%20Xpress%20SARS%20CoV-2/Fact%20Sheets/302-3802%31NSWQ-YVV-2%20 HEALTHCARE%20PROVIDERS%20FACT%20SHEET.pdf Fact Sheet for Healthcare Patients: https://www.NudgeRx/Documents/Xpert%20Xp ress%20SARS%20CoV-2/Fact%20Sheets/302-3801%90SNNW-IZC-2%20PATIENT%20FACT%20SHEET .pdfBlood gas, [id number] 01:22:00 Test Item Value Reference Range Interpretation [...] code = 59 See_Comment H [Auto mated 0195-2) message] The sy stem which generated this result transmitted reference range : 25 - 40 mm Hg. The reference range was not used to interpret this result as normal/abnormal . O2 Sat, Niranjan (test code 89.4 % 40-70 H = 2711-0) HCO3, Niranjan (test code = 21 mmol/L 21-29 25854-0) Base Excess, Niranjan (test -4.5 mmol/L -2-3 L code = 1927-3) Patient Temperature 37.0 (test code = 8310-5) FIO2 (test code = 1819) 21 Lab Interpretation Abnormal (test code = 83145-1) [facility], [id number] 01:22:00 Test Item Value Reference Range Interpretation [...] Niranjan (test code = 21 mmol/L 21-29 53569-1) Base Excess, Niranjan (test -4.5 mmol/L -2-3 L code = 1927-3) Patient Temperature 37.0 (test code = 8310-5) FIO2 (test code = 1819) 21 Lab Interpretation Abnormal (test code = 84661-2) [facility] [id number] 01:22:00 Test Item Value Reference Range Interpretation [...] Niranjan (test code = 21 mmol/L 21-29 51530-5) Base Excess, Niranjan (test -4.5 mmol/L -2-3 L code = 1927-3) Patient Temperature 37.0 (test code = 8310-5) FIO2 (test code = 1819) 21 Lab Interpretation Abnormal (test code = 22128-4) [facility], [id number] 01:22:00 Test Item Value Reference Range Interpretation [...] code = 59 See_Comment H [Auto mated 3685-2) message] The sy stem which generated this result transmitted reference range : 25 - 40 mm Hg. The reference range was not used to interpret this result as normal/abnormal . O2 Sat, Niranjan (test code 89.4 % 40-70 H = 2711-0) HCO3, Niranjan (test code = 21 mmol/L 21-29 15388-9) Base Excess, Niranjan (test -4.5 mmol/L -2-3 L code = 1927-3) Patient Temperature 37.0 (test code = 8310-5) FIO2 (test code = 1819) 21 Lab Interpretation Abnormal (test code = 37963-5) [facility] CenterBLOOD GAS, [id number] 01:22:00 Test Item Value Reference Range Interpretation [...] (BEAKER) (test code = 1819) 21.0 ECG/EKG [id number] 23:15:17Cherie Faustin MD 05/05/2021 2:11 AMECG/EKG Interpretation Date/Time: 05/04/2021 11:26 PMPerformed by: Cherie Faustin MDAuthorized by: Cherie Faustin MD The ECG was interpreted by ED physician. The ECG is interpreted as sinus rhythm. Rate is normal rate. Heart rate is 91 BPM.ST segments normal.T-wave inversion in lead(s) V1 and V2. Clinical Impression: [facility]EC[facility] Interpretation 2021-05-04 23:15:17Cherie Faustin MD 05/05/2021 2:11 AMECG/EKG Interpretation Date/Time: 05/04/2021 11:26 PMPerformed by: Cherie Faustin MDAuthorized by: Cherie Faustin MD The ECG was interpreted by ED physician. The ECG is interpreted as sinus rhythm. Rate is normal rate. Heart rate is 91 BPM.ST segments normal.T-wave inversion in lead(s) V1 and V2. Clinical Impression: normal [facility]CH[facility]enaECG/EKG [id number] 23:15:17 Cherie Faustin MD 05/05/2021 2:11 AMECG/EKG Interpretation Date/Time: 05/04/2021 11:26 PMPerformed by: Cherie Faustin MDAuthorized by: Cherie Faustin MD The ECG was interpreted by ED physician. The ECG is interpreted as sinus rhythm. Rate is normal rate. Heart rate is 91 BPM.ST segments normal.T- wave inversion in lead(s) V1 and V2. Clinical Impression: normal [facility]CH[facility]enaECG/EKG [id number] 23:15:17Cherie Faustin MD 05/05/2021 2:11 AMECG/EKG Interpretation Date/Time: 05/04/2021 11:26 PMPerformed b y: Cherie Faustin MDAuthorized by: Cherie Faustin MD The ECG was interpreted by ED physician. The ECG is interpreted as sinus rhythm. Rate is normal rate. Heart rate is 91 BPM.ST segments normal.T-wave inversion in lead(s) V1 and V2. Clinical Impression: normal ECGS[facility] CenterHEPATIC FUNCTION [id number] 22:01:00 Test Item Value Reference Range Interpretation [...] Specimen moderately (test code = 347) hemolyzed Special Education Aide ID - [id number] 21:53:00 Test Item Value Reference Range Interpretation Comments Amylase (test code = 143 U/L 25-125 H Specime n 1798-8) markedly hemolyzed TORRES (test code = TORRES) Special Education Aide ID - DB Lab Interpretation Abnormal (test code = 55205-6) [facility] 21:53:00 Test Item Value Reference Range Interpretation Comments Lipase (test code = 3040-3) 97 U/L 8-78 H TORRES (test code = TORRES) Special Education Aide ID - DB Lab Interpretation (test Abnormal code = 88196-8) [facility] CenterAmylase2021-08-[facility] 21:53:00 Test Item Value Reference Range Interpretation Comments Amylase (test code = 143 U/L 25-125 H Specime n 1798-8) markedly hemolyzed TORRES (test code = TORRES) Special Education Aide ID - DB Lab Interpretation Abnormal (test code = 45323-5) [facility] 21:53:00 Test Item Value Reference Range Interpretation Comments Lipase (test code = 3040-3) 97 U/L 8-78 H TORRES (test code = TORRES) Special Education Aide ID - DB Lab Interpretation (test Abnormal code = 93984-6) [facility] CenterAmylase2021-08-[facility] 21:53:00 Test Item Value Reference Range Interpretation Comments Amylase (test code = 143 U/L 25-125 H Specime n 1798-8) markedly hemolyzed TORRES (test code = TORRES) Special Education Aide ID - DB Lab Interpretation Abnormal (test code = 00516-5) [facility] 21:53:00 Test Item Value Reference Range Interpretation Comments Lipase (test code = 3040-3) 97 U/L 8-78 H TORRES (test code = TORRES) Special Education Aide ID - DB Lab Interpretation (test Abnormal code = 16756-2) [facility] CenterAmylase2021-[facility] 21:53:00 Test Item Value Reference Range Interpretation Comments Amylase (test code = 143 U/L 25-125 H Specime n 1798-8) markedly hemolyzed TORRES (test code = TORRES) Special Education Aide ID - DB Lab Interpretation Abnormal (test code = 43188-3) [facility] 21:53:00 Test Item Value Reference Range Interpretation Comments Lipase (test code = 3040-3) 97 U/L 8-78 H TORRES (test code = TORRES) Special Education Aide ID - DB Lab Interpretation (test Abnormal code = 17429-3) [facility] CenterBASIC METABOLIC [id number] 21:53:00 Test Item Value Reference Range Interpretation [...] S NOT APPLICABLE FOR DIALYSIS PATIEN TS. Special Education Aide ID - [id number] 21:53:00 Test Item Value Reference Range Interpretation Comments AMYLASE (BEAKER) (test 143 U/L 25-125 H Speci men markedly code = 349) hemolyzed Special Education Aide ID - SRILRTBN1519-02-94 21:53:00 Test Item Value Reference Range Interpretation Comments LIPASE (BEAKER) (test code = 749) 97 U/L 8-78 H Special Education Aide ID - DBCBC W/PLT COUNT & AUTO [id number] 19:51:00 Test Item Value Reference Range Interpretation [...] PERCENT (BEAKER) (test code = 2801) POC-Glucose [id number] 08:41:00 Test Item Value Reference Range Interpretation Comments POC-Glucose Meter (test 104 mg/dL 70-110 : TE STED AT [facility] code = 1538) [address] [place] [address], 770 30: Special Education Aide/Techni aldo ID = [id number] for LEMON HUSSEIN Lab Interpretation (test Normal code = 55667-0) [facility]-Glucose [id number] 08:41:00 Test Item Value Reference Range Interpretation Comments POC-Glucose Meter (test 104 mg/dL 70-110 : TE STED AT [facility] code = 1538) [address] [place] [address], 770 30: Special Education Aide/Techni aldo ID = [id number] for LEMON HUSSEIN Lab Interpretation (test Normal code = 73679-3) [facility]-Glucose [id number] 08:41:00 Test Item Value Reference Range Interpretation Comments POC-Glucose Meter (test 104 mg/dL 70-110 : TE STED AT [facility] code = 1538) [address] [place] [address], 770 30: Special Education Aide/Techni aldo ID = [id number] for LEMON, HUSSEIN Lab Interpretation (test Normal code = 80507-2) [facility]-Glucose [id number] 08:41:00 Test Item Value Reference Range Interpretation Comments POC-Glucose Meter (test 104 mg/dL 70-110 : TE STED AT [facility] code = 1538) [address] [place] [address], 770 30: Special Education Aide/Techni aldo ID = [id number] for LEMON, HUSSEIN Lab Interpretation (test Normal code = 71002-2) [facility] [id number] 08:41:00 Test Item Value Reference Range Interpretation Comments POC-GLUCOSE METER 104 mg/dL 70-110 : TESTED [place] T [facility] 6720 (LIA) (test code = [place], 1538) [address]: Special Education Aide/Techni aldo ID = [id number] for HUSSEIN DAVID Comprehensive metabolic [id number] 06:49:00 Test Item Value Reference Range Interpretation Comments Protein, Total (test 6.8 See_Comment [Autom ated code = 2885-2) message] The system which generated this result transmit lane reference range : 6.0 - 8.3 gm/dL . The reference range was not u sed to interpret th is result as normal/abnormal . Albumin (test code = 3.5 g/dL 3.5-5 91610-2) Alkaline Phosphatase 44 U/L 40-150 (test code = 6768-6) Total Bilirubin (test 0.3 mg/dL 0.2-1.2 code = 1974-2) Sodium (test code = 139 meq/L 398-262 5513-2) Potassium (test code 3.8 meq/L 3.5-5.1 = 2823-3) Chloride (test code = 104 meq/L 98-107 2075-0) CO2 (test code = 27 meq/L 22-29 2028-9) BUN (test code = 12 mg/dL 7-21 3094-0) Creatinine (test code 1.05 mg/dL 0.57-1.25 = 2160-0) Glucose (test code = 79 mg/dL 70-105 2345-7) Calcium (test code = 8.4 mg/dL 8.4-10.2 32762-9) AST (test code = 49 U/L 5-34 H 1920-8) ALT (test code = 41 U/L 6-55 1742-6) EGFR (test code = 52 mL/min/1.[address] [place] [address]-2) NOT ACCURATE CREATININE CLEARANCE IN PREDICTING GLOMERULAR FILTRATION RATE . ESTIMATED GFR I S NOT APPLICABLE FOR DIALYSIS PATIEN TS. TORRES (test code = TORRES) Special Education Aide ID - HUMBLE M Lab Interpretation Abnormal (test code = 20696-1) [facility] CenterCom[facility] [id number] 06:49:00 Test Item Value Reference Range Interpretation Comments Protein, Total (test 6.8 See_Comment [Autom ated code = 2885-2) message] The system which generated this result transmit lane reference range : 6.0 - 8.3 gm/dL . The reference range was not u sed to interpret th is result as normal/abnormal . Albumin (test code = 3.5 g/dL 3.5-5 06120-9) Alkaline Phosphatase 44 U/L 40-150 (test code = 6768-6) Total Bilirubin (test 0.3 mg/dL 0.2-1.2 code = 1975-2) Sodium (test code = 139 meq/L 722-291 0792-2) Potassium (test code 3.8 meq/L 3.5-5.1 = 2823-3) Chloride (test code = 104 meq/L 98-107 2075-0) CO2 (test code = 27 meq/L 22-29 2028-9) BUN (test code = 12 mg/dL 7-21 3094-0) Creatinine (test code 1.05 mg/dL 0.57-1.25 = 2160-0) Glucose (test code = 79 mg/dL 70-105 2345-7) Calcium (test code = 8.4 mg/dL 8.4-10.2 49486-1) AST (test code = 49 U/L 5-34 H 1920-8) ALT (test code = 41 U/L 6-55 1742-6) EGFR (test code = 52 mL/min/1.73 sq m [place] [facility] [place] [address]-0) NOT ACCURATE CREATININE CLEARANCE IN PREDICTING GLOMERULAR FILTRATION RATE . ESTIMATED GFR I S NOT APPLICABLE FOR DIALYSIS PATIEN TS. TORRES (test code = TORRES) Special Education Aide ID - HUMBLE M Lab Interpretation Abnormal (test code = 95596-5) [facility] CenterComprehenve metabolic [id number] 06:49:00 Test Item Value Reference Range Interpretation Comments Protein, Total (test 6.8 See_Comment [Autom ated code = 2885-2) message] The system which generated this result transmit lane reference range : 6.0 - 8.3 gm/dL . The reference range was not u sed to interpret th is result as normal/abnormal . Albumin (test code = 3.5 g/dL 3.5-5 83663-4) Alkaline Phosphatase 44 U/L 40-150 (test code = 6768-6) Total Bilirubin (test 0.3 mg/dL 0.2-1.2 code = 1974-10) Sodium (test code = 139 meq/L 277-114 1514-2) Potassium (test code 3.8 meq/L 3.5-5.1 = 2823-3) Chloride (test code = 104 meq/L 98-107 2075-0) CO2 (test code = 27 meq/L 22-29 8-9) BUN (test code = 12 mg/dL 7-21 3094-0) Creatinine (test code 1.05 mg/dL 0.57-1.25 = 2160-0) Glucose (test code = 79 mg/dL 70-105 2345-7) Calcium (test code = 8.4 mg/dL 8.4-10.2 49862-1) AST (test code = 49 U/L 5-34 H 1920-8) ALT (test code = 41 U/L 6-55 1742-6) EGFR (test code = 52 mL/min/1.[address] [place] [address]-3) NOT ACCURATE CREATININE CLEARANCE IN PREDICTING GLOMERULAR FILTRATION RATE . ESTIMATED GFR I S NOT APPLICABLE FOR DIALYSIS PATIEN TORRES (test code = TORRES) Special Education Aide ID - HUMBLE M Lab Interpretation Abnormal (test code = 07063-2) [facility] CenterCom[facility] metabolic [id number] 06:49:00 Test Item Value Reference Range Interpretation Comments Protein, Total (test 6.8 See_Comment [Autom ated code = 2885-2) message] The system which generated this result transmit lane reference range : 6.0 - 8.3 gm/dL . The reference range was not u sed to interpret th is result as normal/abnormal . Albumin (test code = 3.5 g/dL 3.5-5 34001-5) Alkaline Phosphatase 44 U/L 40-150 (test code = 6768-6) Total Bilirubin (test 0.3 mg/dL 0.2-1.2 code = 1974-10) Sodium (test code = 139 meq/L 853-117 2089-2) Potassium (test code 3.8 meq/L 3.5-5.1 = 2823-3) Chloride (test code = 104 meq/L 98-107 5-0) CO2 (test code = 27 meq/L 22-29 2027-9) BUN (test code = 12 mg/dL 7-21 3094-0) Creatinine (test code 1.05 mg/dL 0.57-1.25 = 2160-0) Glucose (test code = 79 mg/dL 70-105 2345-7) Calcium (test code = 8.4 mg/dL 8.4-10.2 22527-7) AST (test code = 49 U/L 5-34 H 1920-8) ALT (test code = 41 U/L 6-55 1742-6) EGFR (test code = 52 mL/min/1.[address] [place] [address]-8) NOT ACCURATE CREATININE CLEARANCE IN PREDICTING GLOMERULAR FILTRATION RATE . ESTIMATED GFR I S NOT APPLICABLE FOR DIALYSIS PATIEN TS. TORRES (test code = TORRES) Special Education Aide ID - HUMBLE M Lab Interpretation Abnormal (test code = 56720-5) [facility] CenterCOMPREHENSIVE METABOLIC [id number] 06:49:00 Test Item Value Reference Range Interpretation [...] S NOT APPLICABLE FOR DIALYSIS PATIEN TS. Special Education Aide ID - HUMBLE MPOCT-GLUCOSE [id number] 16:54:00 Test Item Value Reference Range Interpretation Comments POC-GLUCOSE METER 171 mg/dL 70-110 H : TESTED A T [facility] 6720 (BEAKER) (test code = [place], 1538) [address]: Special Education Aide/Techni aldo ID = [id number] for ALBINO GONZALEZ Hemoglobin [id number] 15:22:00 Test Item Value Reference Range Interpretation Comments Hemoglobin A1C (test code = 4548-4) 6.2 % 4.3-6.1 H Lab Interpretation (test code = Abnormal 14166-9) [facility] CenterHemoglobin [id number] 15:22:00 Test Item Value Reference Range Interpretation Comments Hemoglobin A1C (test code = 4548-4) 6.2 % 4.3-6.1 H Lab Interpretation (test code = Abnormal 92863-3) [facility] CenterHemoglobin [id number] 15:22:00 Test Item Value Reference Range Interpretation Comments Hemoglobin A1C (test code = 4548-4) 6.2 % 4.3-6.1 H Lab Interpretation (test code = Abnormal 44017-5) [facility] CenterHemoglobin [id number] 15:22:00 Test Item Value Reference Range Interpretation Comments Hemoglobin A1C (test code = 4548-4) 6.2 % 4.3-6.1 H Lab Interpretation (test code = Abnormal 86568-1) [facility] CenterHEMOGLOBIN [id number] 15:22:00 Test Item Value Reference Range Interpretation Comments HEMOGLOBIN A1C (BEAKER) (test code = 6.2 % 4.3-6.1 H 368) POCT-GLUCOSE [id number] 12:56:00 Test Item Value Reference Range Interpretation Comments POC-GLUCOSE METER 93 mg/dL 70-110 : Notified RN/MD: TESTED (LIA) (test code = AT [facility] [address] 1538) [facility], 770 30: Special Education Aide/Techni aldo ID = [id number] for Simm Arely gorman [place], [id number] 12:02:00Reason for exam:->[facility] : 1950 Sex: FFluoroscopic unit utilized for a procedure performed in the OR. No interpretation was requested. Refer to theoperative report for findings. Refer to PACS for patient radiation dose information.[place] Endoscopic Retrograde Opajq[id number] 12:02:00Interface, External Ris In 03/10/2021 12:18 PM CDTFluoroscopic unit utilized for a procedure performed in the OR. No interpretation was requested. Refer to the operative report for findings. Refer [facility] for patient radiation dose information.[facility] Endoscopic Retrograde Glgwkroowgmylkrrfnfzpjjd7270-51-92 12:02:00Interface, External Ris In 03/10/2021 12:18 PM CDTFluoroscopic unit utilized for a procedure performed in the OR. No interpretation was requested. Refer to the operative report for findings. Refer [facility] for patient radiation dose information.[facility] Endoscopic Retrograde Rdeilzcbdcdhkkgnhemvqxej1718-36-13 12:02:00Interface, External Ris In - 03/10/2021 12:18 PM CDTFluoroscopic unit utilized for a procedure performed in the OR. No interpretation was requested. Refer to the operative report for findings. [facility] CenterFL Endoscopic Retrograde Ngnglkemwxclqnheisxdrose7042-72-34 12:02:00Interface, External Ris In - 03/10/2021 12:18 PM CDTFluoroscopic unit utilized for a procedure performed in the OR. No interpretation was requested. Refer to the operative report for findings. Refer toPACS for patient radiation dose information.[facility] CenterPOCT-GLUCOSE [id number] 09:27:00 Test Item Value Reference Range Interpretation Comments POC-GLUCOSE METER 74 mg/dL 70-110 : TESTED A T [facility] 6720 (BEAKER) (test code = [place], 1538) [address]: Special Education Aide/Techni aldo ID = [id number] for ALBINO ROSS COMPREHENSIVE METABOLIC [id number] 05:49:00 Test Item Value Reference Range Interpretation [...] S NOT APPLICABLE FOR DIALYSIS PATIEN TS. Special Education Aide ID - HUMBLE [facility] (Hemogram only)2021-03-10 05:10:00 Test Item Value Reference Range Interpretation Comments WBC (test code = 6690-2) 9.1 See_Comment [A utomated message] The system Commt[employer] generated this result transmitted ref erence range: 3.5 - 10 .5 K/L. The refe rence range was not u sed to interpret this result as normal/abnor mal. RBC (test code = 789-8) 3.57 See_Comment L [Au tomated message] The system [employer] generated this result transmitted ref erence range: 3.93 - 5 .22 M/L. The refe rence range was not u sed to interpret this result as normal/abnor mal. MCHC (test code = 786-4) 30.9 See_Comment L [A utomated message] The system [employer] generated this result transmitted ref erence range: [...] See_Comment [Aut omated message] 777-3) The system [employer] generated this result transmitted ref erence range: 150 - 45 0 K/CU MM. The referen ce range was not u sed to interpret this result as normal/abnor mal. MPV (test code = 9.3 fL 9.4-12.3 L 80066-2) nRBC (test code = 413) 0 See_Comment [Aut omated message] The system [employer] generated this result transmitted ref erence range: 0 - 0 /1 00 WBC. The refere nce range was not u sed to interpret this result as normal/abnor mal. Lab Interpretation (test Abnormal code = 17144-1) [facility] (Hemogram only)2021-03-10 05:10:00 Test Item Value Reference Range Interpretation Comments WBC (test code = 6690-2) 9.1 See_Comment [A utomated message] The system [employer] generated this result transmitted ref erence range: 3.5 - 10 .5 K/L. The refe rence range was not u sed to interpret this result as normal/abnor mal. RBC (test code = 789-8) 3.57 See_Comment L [Au tomated message] The system [employer] generated this result transmitted ref erence range: 3.93 - 5 .22 M/L. The refe rence range was not u sed to interpret this result as normal/abnor mal. MCHC (test code = 786-4) 30.9 See_Comment L [A utomated message] The system [employer] generated this result transmitted ref erence range: [...] See_Comment [Aut omated message] 777-3) The system [employer] generated this result transmitted ref erence range: 150 - 45 0 K/CU MM. The referen ce range was not u sed to interpret this result as normal/abnor mal. MPV (test code = 9.3 fL 9.4-12.3 L 86833-7) nRBC (test code = 413) 0 See_Comment [Aut omated message] The system [employer] generated this result transmitted ref erence range: 0 - 0 /1 00 WBC. The refere nce range was not u sed to interpret this result as normal/abnor mal. Lab Interpretation (test Abnormal code = 94076-8) [facility]2021-03-10 05:10:00 Test Item Value Reference Range Interpretation Comments WBC (test code = 6690-2) 9.1 See_Comment [A utomated message] The system [employer] generated this result transmitted ref erence range: 3.5 - 10 .5 K/L. The refe rence range was not u sed to interpret this result as normal/abnor mal. RBC (test code = 789-8) 3.57 See_Comment L [Au tomated message] The system [employer] generated this result transmitted ref erence range: 3.93 - 5 .22 M/L. The refe rence range was not u sed to interpret this result as normal/abnor mal. MCHC (test code = 786-4) 30.9 See_Comment L [A utomated message] The system [employer] generated this result transmitted ref erence range: [...] See_Comment [Aut omated message] 777-3) The system [employer] generated this result transmitted ref erence range: 150 - 45 0 K/CU MM. The referen ce range was not u sed to interpret this result as normal/abnor mal. MPV (test code = 9.3 fL 9.4-12.3 L 73601-5) nRBC (test code = 413) 0 See_Comment [Aut omated message] The system [employer] generated this result transmitted ref erence range: 0 - 0 /1 00 WBC. The refere nce range was not u sed to interpret this result as normal/abnor mal. Lab Interpretation (test Abnormal code = 61526-7) [facility] (Hemogram only)2021-03-10 05:10:00 Test Item Value Reference Range Interpretation Comments WBC (test code = 6690-2) 9.1 See_Comment [A utomated message] The system [employer] generated this result transmitted ref erence range: 3.5 - 10 .5 K/L. The refe rence range was not u sed to interpret this result as normal/abnor mal. RBC (test code = 789-8) 3.57 See_Comment L [Au tomated message] The system [employer] generated this result transmitted ref erence range: 3.93 - 5 .22 M/L. The refe rence range was not u sed to interpret this result as normal/abnor mal. MCHC (test code = 786-4) 30.9 See_Comment L [A utomated message] The system [employer] generated this result transmitted ref erence range: [...] See_Comment [Aut omated message] 777-3) The system [employer] generated this result transmitted ref erence range: 150 - 45 0 K/CU MM. The referen ce range was not u sed to interpret this result as normal/abnor mal. MPV (test code = 9.3 fL 9.4-12.3 L 24332-7) nRBC (test code = 413) 0 See_Comment [Aut omated message] The system [employer] generated this result transmitted ref erence range: 0 - 0 /1 00 WBC. The refere nce range was not u sed to interpret this result as normal/abnor mal. Lab Interpretation (test Abnormal code = 33534-1) [facility] (HEMOGRAM ONLY)2021-03-10 05:10:00 Test Item Value [...] 0-0 (BEAKER) (test code = 413) POCT-GLUCOSE [id number] 00:05:00 Test Item Value Reference Range Interpretation Comments POC-GLUCOSE METER 83 mg/dL 70-110 : TESTED A T [facility] 6720 (BEAKER) (test code = [place], 1538) [address]: Special Education Aide/Techni aldo ID = [id number] for BRENDA VENCES SARS-COV2/RT-PCR ([facility])2021-03-09 23:58:00 Test Item Value Reference Range Interpretation Comments SARS-COV2/RT-PCR (test Negative Not Detected, Negative, code = 0419721) See external report for linked test SARS-COV-2 PERFORMING LAB [facility] SHIV (test code = 2055103) Negative result for this test determines that [...] of the Act.Fact Sheet for Healthcare Prov iders:https://www.[employer].[facility]/sites/default/files/product/documents/Fact_Sheet_HC _Ajnwhlkzy_Ouzg_OFTS-WzG-2.pdfFact Sheet for Healthcare Patients:https://www.[employer].[facility]/sites/default/files/product/docume nts/Brtf_Xqhrw_Jdofxxcq_Mrdh_NVHW-WiK-8.pdfPerforming Laboratory:[facility] [facility]Soc[facility], [place] [address]LTAC-CGRUTXL METER 2021-03-09 17:34:00 Test Item Value Reference Range Interpretation Comments POC-GLUCOSE METER 97 mg/dL 70-110 : TESTED A T [facility] 6720 (LIA) (test code = [place], 1538) [address]: Special Education Aide/Techni aldo ID = [id number] for ALBINO ROSS MR, ABDOMEN, [id number] 17:11:00Unlisted Reason for Exam - Click Yes and Enter Reason Below->NoPatient with hyperdense material seen in distal CBD on CTA performed in [facility] : 1950 [...] MDReport Verified Date/Time: 03/09/2021 17:11:18 Reading Location: [facility] C0[facility] Transitional Reading Room MR abdomen without IV contrast [id number] 17:11:00 Interface, External Ris In - 03/09/2021 [...] MDReport Verified Date/Time: 03/09/2021 17:11:18 Reading Location: [facility] C013T Transitional Reading Room [facility] [id number] 17:11:00Interface, External Ris In - 03/09/2021 5:13 [...] MDReport Verified Date/Time: 03/09/2021 17:11:18 Reading Location: [address] Reading Room [facility] without IV contrast [id number] 17:11:00Interface, External Ris In - 03/09/2021 5:13 [...] MDReport Verified Date/Time: 03/09/2021 17:11:18 Reading Location: [facility] C013T Transitional Reading Room [facility] without IV contrast [id number] 17:11:00Interface, External Ris In - 03/09/2021 5:13 [...] MDReport Verified Date/Time: 03/09/2021 17:11:18 Reading Location: [facility] C0[facility] Transitional Reading Room [facility]PO[facility] [id number] 12:41:00 Test Item Value Reference Range Interpretation Comments POC-GLUCOSE METER 92 mg/dL 70-110 : TESTED A T [facility] 6720 (BEAKER) (test code = [place], 1538) [address]: Special Education Aide/Techni aldo ID = [id number] for PARESH NO ALBINO Urinalysis w/Microscopic + Reflex to [id number] 11:21:00 Test Item Value Reference Range Interpretation Comments Color, UA (test code Light Yellow = 5778-6) Clarity, UA (test Clear code = 5767-9) Specific [place], UA 1.033 1.001-1.035 (test code = 5811-5) pH, UA (test code = 5.5 5.0-8.0 5803-2) Protein, UA (test Negative Negative code = 51645-6) Glucose, UA (test Negative Negative code = 365) Ketones, UA (test Negative Negative code = 2514-8) Bilirubin, UA (test Negative Negative code = 00448-8) Blood, UA (test code Trace Negative A = 16530-5) Nitrite, UA (test Negative Negative code = 5802-4) Leukocytes, UA (test Negative Negative code = 5799-2) Urobilinogen, UA 0.2 mg/dL 0.2-1 (test code = 44691-2) RBC, UA (test code = 2 See_Comment [Autom ated 75080-4) message] The system which generated this result [...] Bacteria, UA (test None Seen code = 99982-9) Mucus (test code = Rare 8247-9) Squam Epithel, UA 1 See_Comment [Automate d (test code = 61836-5) messag e] The system which generated this result transmit lane reference range : /HPF. The reference range was not used to interpret this result as normal/abnormal . Crystals, Urine (test None Seen code = 36401-9) Specimen Source (test code = 2795) TORRES (test code = TORRES) Special Education Aide ID - [auto]Special Education Aide ID - tech Lab Interpretation Abnormal (test code = 34406-8) [facility] + Reflex to Culture 2021-03-09 11:21:00 Test Item Value Reference Range Interpretation Comments Color, UA (test code Light Yellow = 5778-6) Clarity, UA (test Clear code = 5767-9) Specific [place], UA 1.033 1.001-1.035 (test code = 5811-5) pH, UA (test code = 5.5 5.0-8.0 5803-2) Protein, UA (test Negative Negative code = 73319-4) Glucose, UA (test Negative Negative code = 365) Ketones, UA (test Negative Negative code = 2514-8) Bilirubin, UA (test Negative Negative code = 69565-8) Blood, UA (test code Trace Negative A = 13514-4) Nitrite, UA (test Negative Negative code = 5802-4) Leukocytes, UA (test Negative Negative code = 5799-2) Urobilinogen, UA 0.2 mg/dL 0.2-1 (test code = 66653-1) RBC, UA (test code = 2 See_Comment [Autom ated 55523-4) message] The system which generated this result [...] Bacteria, UA (test None Seen code = 08024-5) Mucus (test code = Rare 8247-9) Squam Epithel, UA 1 See_Comment [Automate d (test code = 34782-5) messag e] The system which generated this result transmit lane reference range : /HPF. The reference range was not used to interpret this result as normal/abnormal . Crystals, Urine (test None Seen code = 36013-9) Specimen Source (test code = 2795) TORRES (test code = TORRES) Special Education Aide ID - [auto]Special Education Aide ID - tech Lab Interpretation Abnormal (test code = 50991-7) [facility] + Reflex to Culture 2021-03-09 11:21:00 Test Item Value Reference Range Interpretation Comments Color, UA (test code Light Yellow = 5778-6) Clarity, UA (test Clear code = 5767-9) Specific [place], UA 1.033 1.001-1.035 (test code = 5811-5) pH, UA (test code = 5.5 5.0-8.0 5803-2) Protein, UA (test Negative Negative code = 07008-5) Glucose, UA (test Negative Negative code = 365) Ketones, UA (test Negative Negative code = 2514-8) Bilirubin, UA (test Negative Negative code = 18484-4) Blood, UA (test code Trace Negative A = 44528-8) Nitrite, UA (test Negative Negative code = 5802-4) Leukocytes, UA (test Negative Negative code = 5799-2) Urobilinogen, UA 0.2 mg/dL 0.2-1 (test code = 54482-4) RBC, UA (test code = 2 See_Comment [Autom ated 74154-9) message] The system which generated this result [...] Bacteria, UA (test None Seen code = 74011-6) Mucus (test code = Rare 8247-9) Squam Epithel, UA 1 See_Comment [Automate d (test code = 25341-7) messag e] The system which generated this result transmit lane reference range : /HPF. The reference range was not used to interpret this result as normal/abnormal . Crystals, Urine (test None Seen code = 50785-2) Specimen Source (test code = 2795) TORRES (test code = TORRES) Special Education Aide ID - [auto]Special Education Aide ID - tech Lab Interpretation Abnormal (test code = 98468-4) [facility]/Micro[facility]opic + Reflex to Culture 2021-03-09 11:21:00 Test Item Value Reference Range Interpretation Comments Color, UA (test code Light Yellow = 5778-6) Clarity, UA (test Clear code = 5767-9) Specific [place], UA 1.033 1.001-1.035 (test code = 5811-5) pH, UA (test code = 5.5 5.0-8.0 5803-2) Protein, UA (test Negative Negative code = 27841-1) Glucose, UA (test Negative Negative code = 365) Ketones, UA (test Negative Negative code = 2514-8) Bilirubin, UA (test Negative Negative code = 76835-6) Blood, UA (test code Trace Negative A = 25894-7) Nitrite, UA (test Negative Negative code = 5802-4) Leukocytes, UA (test Negative Negative code = 5799-2) Urobilinogen, UA 0.2 mg/dL 0.2-1 (test code = 82452-0) RBC, UA (test code = 2 See_Comment [Autom ated 49668-8) message] The system which generated this result [...] Bacteria, UA (test None Seen code = 89324-7) Mucus (test code = Rare 8247-9) Squam Epithel, UA 1 See_Comment [Automate d (test code = 28465-3) messag e] The system which generated this result transmit lane reference range : /HPF. The reference range was not used to interpret this result as normal/abnormal . Crystals, Urine (test None Seen code = 97151-2) Specimen Source (test code = 2795) TORRES (test code = TORRES) Special Education Aide ID - [auto]Special Education Aide ID - tech Lab Interpretation Abnormal (test code = 24579-4) [facility]FLEX URINE [id number] 11:21:00 Test Item Value Reference Range Interpretation [...] = 1521) SOURCE(BEAKER) (test code = 2795) Special Education Aide ID - [auto]Special Education Aide ID - techHEMOGLOBIN [id number] 10:22:00 Test Item Value Reference Range Interpretation Comments HEMOGLOBIN A1C (BEAKER) (test code = 6.1 % 4.3-6.1 368) [id number] 06:48:00 Test Item Value Reference Range Interpretation Comments Magnesium (test code = 2.1 mg/dL 1.6-2.6 10244-1) TORRES (test code = TORRES) Special Education Aide ID - ELVIN W Lab Interpretation (test Normal code = 52155-7) [facility] Test Item Value Reference Range Interpretation Comments Magnesium (test code = 2.1 mg/dL 1.6-2.6 03811-7) TORRES (test code = TORRES) Special Education Aide ID - ELVIN W Lab Interpretation (test Normal code = 88216-7) [facility] 06:48:00 Test Item Value Reference Range Interpretation Comments Magnesium (test code = 2.1 mg/dL 1.6-2.6 87645-8) TORRES (test code = TORRES) Special Education Aide ID - ELVIN W Lab Interpretation (test Normal code = 67607-3) [facility] 06[facility]48:00 Test Item Value Reference Range Interpretation Comments Magnesium (test code = 2.1 mg/dL 1.6-2.6 29033-2) TORRES (test code = TORRES) Special Education Aide ID - ELVIN W Lab Interpretation (test Normal code = 73182-9) [facility] [id number] 06:48:00 Test Item Value Reference Range Interpretation [...] S NOT APPLICABLE FOR DIALYSIS PATIEN TS. Special Education Aide ID - ELVIN [id number] 06:48:00 Test Item Value Reference Range Interpretation Comments MAGNESIUM (BEAKER) (test code = 2.1 mg/dL 1.6-2.6 627) Special Education Aide ID - ELVIN WHEPATIC FUNCTION [id number] 06:48:00 Test Item Value Reference Range Interpretation [...] (test code = 30 U/L 6-55 347) Special Education Aide ID Carlo OCONNOR WPROTHROMBIN [id number] 06:32:00 Test Item Value Reference Range Interpretation Comments PROTIME (BEAKER) 12.9 seconds 11.9-14.2 (test code = 759) INR (BEAKER) (test 0.99 See_Comment [Automat ed message] code = 370) The system Com[employer] generated this result transmitted ref erence range: <=5.90. The reference range was not used to int erpret this result as normal/abnormal . RECOMMENDED COUMADIN/WARFARIN INR THERAPY RANGESSTANDARD DOSE: 2.0 - 3.0 Includes: PROPHYLAXIS for venous thrombosis, systemic embolization; TREATMENT for venous thrombosis and/or pulmonary embolus.HIGH RISK: Target INR is 2.5-3.5 for patients with mechanical heart valves.CBC W/PLT COUNT & AUTO [id number] 06:29:00 Test Item Value Reference Range Interpretation [...] code = 2801) MRI Brain wo contrast [id number] 16:25:00Patient Name: RIYA VERA: 1950. Age: 67 years. Gender: Female.MR: [id number]. Location: [facility]. Provider: Hollie Acuña MD.EXAM: Brain [...] abnormality. Mild chronic microangiopathic ischemic gliosis. SL: [id number] by: Finesse Dias MDDictated Date/time: 02/08/18 17:31Electronically Signed by: Finesse Dias MD 02/08/1817:40FINAL REPORTUT PhysiciansMCLAREN FLINT Brain w/wo contrast [id number] 2018-02-08 13:39:00 Test Item Value Reference Range Interpretation Comments Brain w/wo contrast MRI Cancel Reason: Exam (test code = Brain w/wo Replaced contrast MRI) [facility]
[2023-04-20] MEDS ORDERED: METOCLOPRAMIDE 10 MG/2mL INJ ONE (20:22)
[2023-04-20] MEDS ORDERED: ONDANSETRON 4 MG/2 ML VIAL ONE (20:23)
[2023-04-20 20:38] LABS: Absolute Lymphocytes (CBC) 2.2 K/uL (0.7-4.9); Hematocrit 34.9 % (36.0-45.0); Lymphocytes % 14.4 % (15.3-44.8); MCV 88.1 fL (80-100); MPV 6.9 fL (7.6-11.3); Platelets 353 thou/uL (152-406); RBC Red Blood Cell Count 3.96 M/uL (3.86-4.86)
[2023-04-20 20:50] LABS: Magnesium 2.6 mg/dL (1.6-2.4); Potassium 3.9 mEq/L (3.5-5.1)
--- NOTE | 2023-04-20 21:18 | RAD REPORT ---
EXAM DESCRIPTION: RAD - Chest Single View - 04/20/2023 8:45 pm CLINICAL HISTORY: FEVER COMPARISON: Chest Single View dated 04/14/2023; Chest Single View dated 04/01/2023; Chest Single View d ated 03/28/2023; Chest Single View dated 01/03/2023 FINDINGS: Lines: None. Lungs: No evidence of edema or pneumonia. Pleural: No significant pleural effusions or pneumothorax. Cardiac: The heart size is within normal limits. Mediastinum: Within normal limits. Bones: No acute fractures. Other: None IMPRESSION: No acute cardiopulmonary disease.
[2023-04-20] MEDS ORDERED: NA CHLORIDE 0.9% 500 ML ONE (22:10)
[2023-04-20 22:26] LABS: Specific Gravity 1.009 (1.005-1.030); Urine Bacteria None Seen /HPF (<20); Urine Bilirubin NEGATIVE (Negative); Urine Blood Negative (Negative); Urine Clarity Clear (Clear); Urine Color Colorless (Yellow); Urine Crystals Unidentified Few /HPF (None Seen); Urine Glucose NEGATIVE (Negative); Urine Protein NEGATIVE (Negative); Urine RBC <5 /HPF (None Seen); Urine Urobilinogen Normal (Normal); Urine pH 6.5 (5.0-7.0)
[2023-04-20] MEDS ORDERED: MECLIZINE HCL 12.5 MG TAB ONE (22:58)
[2023-04-21] MEDS ORDERED: DIAZEPAM 10 MG/2 ML INJ SYRINGE ONE (00:03)
--- NOTE | 2023-04-21 00:13 | ER ---
Nurse's Notes [facility] Jose A Name: Alberto Botello Age: 72 yrs Sex: Female : 1950 Arrival Date: 04/20/2023 Time: 19:37 Bed 15 Private MD: Diagnosis: Chills (without fever);Retention of urine, unspecified Presentation: 04/20 19:56 Chief complaint: EMS states: "Toned out for SOB, chills, and being shaky that started mb9 around 1400. BGL 152 and started 20 g to R FA". Coronavirus screen: Vaccine status: Patient reports receiving the 2nd dose of the covid vaccine. Ebola Screen: No symptoms or risks identified at this time. Initial Sepsis Screen: Does the patient meet any 2 criteria? No. Patient's initial sepsis screen is negative. Does the patient have a suspected source of infection? No. Patient's initial sepsis screen is negative. Risk Assessment: Do you want to hurt yourself or someone else? Patient reports no desire to harm self or others. Onset of symptoms was April 20, 2023. 19:56 Method Of Arrival: EMS: [facility] mb9 19:56 Acuity: ART 3 mb9 Triage Assessment: 19:58 General: Appears uncomfortable, Behavior is calm, cooperative. Pain: Denies pain. mb9 Neuro: Monreal Agitation-Sedation Scale (RASS): 0 - Alert and Calm Level of Consciousness is awake, alert, obeys commands, Oriented to person, place, time, situation, Appropriate for age. Cardiovascular: Patient's skin is warm and dry. Respiratory: Airway is patent Respiratory effort is even, unlabored, Respiratory pattern is regular, symmetrical, Breath sounds are clear bilaterally. GI: Abdomen is round non-distended, Bowel sounds present X 4 quads. Abd is soft and non tender X 4 quads. Derm: Skin is pink, warm \\T\\ dry. Musculoskeletal: Range of motion: intact in all extremities. Historical: - Allergies: 19:58 No Known Allergies; mb9 - PMHx: 19:58 Anxiety; Diabetes - NIDDM; Chronic pain; CHF; Pancreatitis; Osteoporosis; Hepatitis; mb9 Hypertension; - PSHx: 19:58 Cholecystectomy; Total abdominal hysterectomy; hip; mb9 - Immunization history:: Adult Immunizations up to date. - Social history:: Smoking status: Patient denies any tobacco usage or history of. Screenin:59 [facility] ED Fall Risk Assessment (Adult) History of falling in the last 3 months, mb9 including since admission No falls in past 3 months (0 pts) Confusion or Disorientation No (0 pts) Intoxicated or Sedated No (0 pts) Impaired Gait No (0 pts) Mobility Assist Device Used No (0 pt) Altered Elimination No (0 pt) Score/Fall Risk Level 0 - 2 = Low Risk Oriented to surroundings, Maintained a safe environment, Educated pt \\T\\ family on fall prevention, incl call for assistance when getting out of bed. Abuse screen: Denies threats or abuse. Nutritional screening: No deficits noted. Tuberculosis screening: No symptoms or risk factors identified. Assessment: 21:13 Reassessment: No changes from previously documented assessment. Patient and/or family mb9 updated on plan of care and expected duration. Pain level reassessed. Patient is alert, oriented x 3, equal unlabored respirations, skin warm/dry/pink. 22:15 Reassessment: No changes from previously documented assessment. Patient and/or family mb9 updated on plan of care and expected duration. Pain level reassessed. Patient is alert, oriented x 3, equal unlabored respirations, skin warm/dry/pink. 23:30 Reassessment: No changes from previously documented assessment. Patient and/or family mb9 updated on plan of care and expected duration. Pain level reassessed. Patient is alert, oriented x 3, equal unlabored respirations, skin warm/dry/pink. Vital Signs: 19:56 BP 147 / 81; Pulse 79; Resp 18; Temp 99.3(O); Pulse Ox 97% on R/A; Weight 68.04 kg; mb9 Height 5 ft. 0 in. ; Pain 0/10; 20:29 BP 146 / 81; Pulse 74; Resp 16; Pulse Ox 98% on R/A; mb9 21:15 BP 145 / 86; Pulse 74; Resp 18; Temp 98.6; Pulse Ox 98% on R/A; mb9 22:19 BP 150 / 85; Pulse 78; Resp 18; Pulse Ox 100% on R/A; mb9 23:58 BP 159 / 83; Pulse 72; Resp 16; Pulse Ox 97% on R/A; mb9 19:56 Body Mass Index 29.29 (68.04 kg, 152.4 cm) mb9 19:56 Pain Scale: Adult mb9 ED Course: 19:46 Patient arrived in ED. rv1 19:47 Rob Taveras PA is PHCP. cp 19:47 Carmella Kennedy MD is Attending Physician. cp 19:56 Shirley Pelayo, YOSVANY is Primary Nurse. mb9 19:57 Triage completed. mb9 19:57 Arm band placed on. mb9 19:59 Placed in gown. Bed in low position. Call light in reach. Side rails up X 1. Client mb9 placed on continuous cardiac and pulse oximetry monitoring. NIBP monitoring applied. lunchroom monitor on. 20:00 No provider procedures requiring assistance completed. Maintain EMS IV. Dressing mb9 intact. Good blood return noted. Site clean \\T\\ dry. Gauge \\T\\ site: 20 g right FA. 20:29 Influenza Screen (a \\T\\ B) Sent. mb9 20:29 COVID-19 SARS RT PCR Sent. mb9 20:29 Basic Metabolic Panel Sent. mb9 20:29 CBC with Diff Sent. mb9 20:29 Magnesium Sent. mb9 20:47 XRAY Chest (1 view) In Process Unspecified. EDMS 23:59 Report given to YOSVANY Watson. mb9 04/21 00:32 IV discontinued, intact, bleeding controlled, No redness/swelling at site. Pressure ll3 dressing applied. Administered Medications: 04/20 20:29 Not Given (Patient Refused): metoCLOPramide IVP 10 mg IVP once; over 1 to 2 minutes mb9 20:29 Not Given (Patient Refused): Ondansetron IVP 4 mg IVP once; over 2 minutes mb9 22:19 Drug: NS 0.9% IV 500 ml Route: IV; Rate: 250 ml/hr; Site: right forearm; mb9 22:59 Drug: Meclizine PO 25 mg Route: PO; mb9 23:01 Follow up: Response: No adverse reaction mb9 23:46 CANCELLED (Physician Discretion): Diazepam IVP 2 mg IVP once cp 23:56 Drug: Diazepam IVP 1 mg Route: IVP; Site: right forearm; mb9 23:56 Follow up: Response: No adverse reaction mb9 Medication: 19:59 VIS not applicable for this client. mb9 Outcome: 04/21 00:12 Discharge ordered by . cp 00:32 Discharged to home via wheelchair, with family. ll3 00:32 Condition: stable 00:32 Discharge instructions given to patient, family, Instructed on discharge instructions, follow up and referral plans. Demonstrated understanding of instructions, follow-up care. 00:32 Patient left the ED. ll3 Signatures: Dispatcher [employer] EDMS Rob Taveras PA PA cp Loubet, Lynsea RN RN 3 Shirley Pelayo RN RN mb9 Grace Lopez 1
--- NOTE | 2023-04-21 00:13 | EDPHYS ---
Physician Documentation [facility] Name: Alberto Botello Age: 72 yrs Sex: Female : 1950 Arrival Date: 04/20/2023 Time: 19:37 Bed 15 Private MD: ED Physician Carmella Kennedy HPI: 04/20 20:10 This 72 yrs old [place] Female presents to ER via EMS with complaints of Chills. cp 20:10 The patient reports fever, not measured (subjective). Onset: The symptoms/episode cp began/occurred today. Associated signs and symptoms: Pertinent positives: chills, shortness of breath, Pertinent negatives: abdominal pain, chest pain, cough, diarrhea, runny nose, skin rash, vomiting. Severity of symptoms: in the emergency department the symptoms are unchanged despite home interventions. Historical: - Allergies: 19:58 No Known Allergies; mb9 - PMHx: 19:58 Anxiety; Diabetes - NIDDM; Chronic pain; CHF; Pancreatitis; Osteoporosis; Hepatitis; mb9 Hypertension; - PSHx: 19:58 Cholecystectomy; Total abdominal hysterectomy; hip; mb9 - Immunization history:: Adult Immunizations up to date. - Social history:: Smoking status: Patient denies any tobacco usage or history of. ROS: 20:15 Constitutional: Positive for chills, Negative for fever, poor PO intake. cp 20:15 Eyes: Negative for injury, pain, redness, and discharge. cp 20:15 ENT: Negative for drainage from ear(s), ear pain, sore throat, difficulty swallowing, difficulty handling secretions. 20:15 Cardiovascular: Negative for chest pain. 20:15 Respiratory: Positive for shortness of breath, Negative for cough. 20:15 Abdomen/GI: Negative for abdominal pain, vomiting, diarrhea, constipation, black/tarry stool, rectal bleeding. 20:15 : Positive for small amounts, Negative for hematuria, burning with urination. 20:15 Skin: Negative for rash. 20:15 Neuro: Negative for altered mental status, weakness. 20:15 All other systems are negative. Exam: 20:20 Constitutional: The patient appears in no acute distress, alert, awake, cp non-diaphoretic, non-toxic, well developed, well nourished. 20:20 Head/Face: Normocephalic, atraumatic. cp 20:20 Eyes: Periorbital structures: appear normal, Conjunctiva: normal, no exudate, no injection, Sclera: no appreciated abnormality, Lids and lashes: appear normal, bilaterally. 20:20 ENT: External ear(s): are unremarkable, Nose: is normal, Mouth: Lips: moist, Oral mucosa: pink and intact, moist, Posterior pharynx: is normal, airway is patent, no erythema, no exudate. 20:20 Neck: ROM/movement: is normal, is supple, without pain, no range of motions limitations, no meningismus. 20:20 Chest/axilla: Inspection: normal, Palpation: is normal, no crepitus, no tenderness. 20:20 Cardiovascular: Rate: normal, Rhythm: regular, Edema: is not appreciated, JVD: is not appreciated. 20:20 Respiratory: the patient does not display signs of respiratory distress, Respirations: normal, no use of accessory muscles, no retractions, labored breathing, is not present, Breath sounds: are clear throughout, no decreased breath sounds, no stridor, no wheezing. 20:20 Abdomen/GI: Inspection: abdomen appears normal, Bowel sounds: active, all quadrants, Palpation: soft, in all quadrants, mild abdominal tenderness, in all quadrants. 20:20 Back: pain, is absent, ROM is normal. 20:20 Skin: on the chest. 20:20 Neuro: Orientation: no acute changes, per family, Mentation: no acute changes, per family. 20:50 ECG was reviewed by the Attending Physician. cp Vital Signs: 19:56 BP 147 / 81; Pulse 79; Resp 18; Temp 99.3(O); Pulse Ox 97% on R/A; Weight 68.04 kg; mb9 Height 5 ft. 0 in. ; Pain 0/10; 20:29 BP 146 / 81; Pulse 74; Resp 16; Pulse Ox 98% on R/A; mb9 21:15 BP 145 / 86; Pulse 74; Resp 18; Temp 98.6; Pulse Ox 98% on R/A; mb9 22:19 BP 150 / 85; Pulse 78; Resp 18; Pulse Ox 100% on R/A; mb9 23:58 BP 159 / 83; Pulse 72; Resp 16; Pulse Ox 97% on R/A; mb9 19:56 Body Mass Index 29.29 (68.04 kg, 152.4 cm) mb9 19:56 Pain Scale: Adult mb9 MDM: 19:47 Patient medically screened. cp 21:00 Differential diagnosis: viral Infection, bacterial infection, URI, pneumonia UTI. cp 04/21 00:11 Data reviewed: vital signs, nurses notes, lab test result(s), EKG, radiologic studies, cp plain films. 00:11 Consideration of Admission/Observation Escalation of care including cp admission/observation considered. I considered the following discharge prescriptions or medication management in the emergency department Medications were administered in the Emergency Department. See MAR. Independent interpretation of the following test(s) in the Emergency Department EKG: See my EKG interpretation above. Counseling: I had a detailed discussion with the patient and/or guardian regarding: the historical points, exam findings, and any diagnostic results supporting the discharge/admit diagnosis, lab results, radiology results, to return to the emergency department if symptoms worsen or persist or if there are any questions or concerns that arise at home. Response to treatment: the patient's symptoms have mildly improved after treatment, and as a result, I will discharge patient. 04/20 20:03 Order name: Basic Metabolic Panel; Complete Time: 21:47 cp 04/20 21:47 Interpretation: Normal except: GLUC 118; BUN 27; CRE 1.45; GFR 38. 04/20 20:03 Order name: CBC with Diff; Complete Time: 21:47 cp 04/20 21:47 Interpretation: Normal except: WBC 15.00; HGB 11.3; HCT 34.9; MPV 6.9; JANEEN% 80.3; LYM% cp 14.4; NEUT A 12.0. 04/20 20:03 Order name: Magnesium; Complete Time: 21:47 cp 04/20 21:48 Interpretation: Abnormal: MG 2.6. cp 04/20 20:03 Order name: Urinalysis W/Microscopic; Complete Time: 22:38 cp / 22:38 Interpretation: Reviewed. 04/20 20:04 Order name: COVID-19 SARS RT PCR; Complete Time: 21:47 cp 04/20 20:04 Order name: Influenza Screen (a \T\ B); Complete Time: 21:47 04/20 20:03 Order name: XRAY Chest (1 view); Complete Time: 21:47 cp 04/20 20:03 Order name: EKG; Complete Time: 20:04 cp 04/20 20:03 Order name: Cardiac monitoring; Complete Time: 20: 04/20 20:03 Order name: EKG - Nurse/Tech; Complete Time: 20:29 cp 04/20 20:03 Order name: IV Saline Lock; Complete Time: 20:29 cp 04/20 20:03 Order name: Labs collected and sent; Complete Time: 20:29 cp 04/20 20:03 Order name: O2 Per Protocol; Complete Time: 20: cp 04/20 20:03 Order name: O2 Sat Monitoring; Complete Time: 20: cp 04/20 21:22 Order name: Straight Cath - Urine; Complete Time: 22:19 mb9 EC/09 20:50 Rate is 77 beats/min. Rhythm is regular. CO interval is normal. QRS interval is normal. cp QT interval is normal. T waves are Inverted in lead aVR. Interpreted by me. Reviewed by me. Administered Medications: 20:29 Not Given (Patient Refused): metoCLOPramide IVP 10 mg IVP once; over 1 to 2 minutes mb9 20:29 Not Given (Patient Refused): Ondansetron IVP 4 mg IVP once; over 2 minutes mb9 22:19 Drug: NS 0.9% IV 500 ml Route: IV; Rate: 250 ml/hr; Site: right forearm; mb9 22:59 Drug: Meclizine PO 25 mg Route: PO; mb9 23:01 Follow up: Response: No adverse reaction mb9 23:46 CANCELLED (Physician Discretion): Diazepam IVP 2 mg IVP once cp 23:56 Drug: Diazepam IVP 1 mg Route: IVP; Site: right forearm; mb9 23:56 Follow up: Response: No adverse reaction mb9 Disposition Summary: 04/21/23 00:12 Discharge Ordered Location: Home cp Problem: new cp Symptoms: have improved cp Condition: Stable cp Diagnosis - Chills (without fever) cp - Retention of urine, unspecified cp Followup: cp - With: Private Physician - When: 1 - 2 days - Reason: Recheck today's complaints Discharge Instructions: - Discharge Summary Sheet cp - Acute Urinary Retention, Female cp Forms: - Medication Reconciliation Form cp - Thank You Letter cp - Antibiotic Education cp - Prescription Opioid Use cp - Patient Portal Instructions cp Addendum: 04/22/2023 10:29 I reviewed the patient's care provided by Advanced Practice Provider \T\ agree w/ the cp3 diagnosis \T\ care plan. I personally saw the pt \T\ performed a substantive portion of t he visit, incldng all aspects of the (History/Exam/Medical Decision Making). Signatures: Dispatcher [employer] Carmella Bishop MD MD cp3 Rob Taveras PA PA cp Breneman, Mary Beth RN RN mb9 Corrections: (The following items were deleted from the chart) 04/20 23:46 23:45 Diazepam IVP 2 mg IVP once ordered. cp cp 04/21 00:13 00:12 Dizziness and giddiness cp cp 04/22 00:17 00:16 This 72 yrs old [place] Female presents to ER via EMS with complaints of Chills. cp cp
[2023-04-21 01:00] VITALS: TEMP 98.6
[2023-04-21 01:03] VITALS: BP 159/83; O2SAT 97
--- NOTE | 2023-04-21 14:12 | EKG ---
Test Date: 2023-04-20 Test Time: 20:43:10 Motion Picture Scene Builder: AIXA MEASUREMENT RESULTS: Intervals: Rate: 77 DC: 140 QRSD: 86 QT: 390 QTc: 441 Floyd: P: 56 DC: 140 QRS: 46 T: 73 INTERPRETIVE STATEMENTS: Normal sinus rhythm Nonspecific T wave abnormality Abnormal ECG Compared to ECG 04/14/2023 16:42:25 Possible ischemia no longer present T-wave abnormality still present Electronically Signed On 04-21-23 14:10:32 CDT by Jae Avilez
== END 2023-04-21 00:32 | disposition home or self-care (01) ==
LOC: ER 19:37
DX: R68.83 Chills (without fever) (principal); R33.9 Retention of urine, unspecified; Z20.822 Contact with and (suspected) exposure to COVID-19; I10 Essential (primary) hypertension
CPT/HCPCS: 93005; 85025; 81001; 80048; 36415; 83735; 87635; 87804 ×2; 71045; 96374; 99285; J8597; J2765; J2405; J7040

== ENCOUNTER 2023-04-23 16:03 | Emergency (ER) | payer OTHER ==
--- OUTSIDE RECORDS SUMMARY | 2023-04-23 16:17 | XMS REPORT | Continuity of Care Document ---
:1950 Author Organization [facility] t Address [address] [place] [address] [place] [id number] Care Team Providers Name Role Phone JAIME JAMISON Primary Care Physician Unavailable Paolo MAY, Jessica Gimenez Attending Clinician [phone] PAOLA CALI Attending Clinician Unavailable LUCY HOOPER Attending Clinician Unavailable MALOU MAHAN Attending Clinician Unavailable MALOU MAHAN Attending Clinician Unavailable Lucy Reddy Attending Clinician SPIKE ARELLANO Attending Clinician Unavailable Kelle Aguirre DO Attending Clinician Spike Arellano MD Attending Clinician Doctor Unassigned, [place] Attending Clinician Unavailable FRANCINE VANESSA Attending Clinician Unavailable BALDOMERO RAO Attending Clinician Unavailable Baldomero Rao MD Attending Clinician Lab, Ang - Db Attending Clinician Unavailable Rosa Isela Ching MD Attending Clinician [phone] Britney Lloyd MD Attending Clinician [phone] BRITNEY LLOYD Attending Clinician Unavailable Eryn MAY, Lili Patel Attending Clinician Heaven Garza MD Attending Clinician Unavailable GLENN PUALSON Attending Clinician Unavailable Glenn Paulson DO Attending Clinician Roxie MAY, Cherie Attending Clinician Talha MAY, Caterina Reyes Attending Clinician [phone] Merchant MAY, Omari Attending Clinician Jose Enrique MAY, Denise Attending Clinician Jm Rushing Attending Clinician Nikita MAY, Juan Alberto Gruber Attending Clinician CRISTELA HUTCHINSON Attending Clinician Unavailable Tyesha Nieves MA Attending Clinician Unavailable Lex MAY, Paola López Attending Clinician Kathy MAY, Allen Rm Attending Clinician [phone] Josef MAY, Graciela Colón Attending Clinician [phone] HOLLIE ACUÑA M.D. Attending Clinician Unavailable PAOLA CALI Admitting Clinician Unavailable ELICIA RAPP Admitting Clinician Unavailable GLENN PAULSON Admitting Clinician Unavailable CATERINA RICHARDSON Admitting Clinician Unavailable ROSA ISELA CHING Admitting Clinician Unavailable Payers Payer Name Policy Type Policy Number Effective Date Expiration Date S chastity MEDICARE A B [id number] 2021 00:00:00 [place] [id number] MEDICARE PART A [id number] 2003 \\T\\ B 00:00:00 [place] [id number] 2013 00:00:00 Problems Condition Condition Condition Status [...] Active [facility] Closed Closed Disease Active [facility] fracture fracture 7 ity of of first of first 00:00: [place] lumbar lumbar 00 Medical vertebra vertebra Branch with with routine routine healing healing Diabetes Diabetes Disease [facility] mellitus mellitus [facility] Hypovolemi Hypovolemi Disease Rec[facility] c shock c shock [facility] Hypertensi Hypertensi Disease Active C [facility] New onset New onset Problem Active [...] NO KNOWN Drug Active Univers ALLERGIE Class it of S [facility] NO KNOWN Allergy Active [facility] ALLERGIE [facility] Family History Family Member Diagnosis Comments Start Date Stop Date Source Father Family history of lung [facility] Social History Social Habit Start Date Stop Date Quantity Comments Source History [facility] Gender identity [facility]it y [facility] Exposure to 2022-10-11 2022-10-21 Not sure University of SARS-CoV-2 (event) 00:00:00 09:35:00 [facility] History of Social 2022-10-04 2022-10-04 Univers ity of function 00:00:00 00:00:00 [facility] Alcohol intake 2022-04-08 2022-04-08 Ex-drinker [facility] 00:[facility] 00:00:00 (finding) Medical Center History SDOH 2022-04-07 2022-04-[address] [facility] Transport Med 00:00:00 00:00:[address] History SDPR 2022-04-07 2022-04-07 2 [facility] Unable to 00:00:00 00:00:00 Medical Center Pay History [facility] 2022-04-07 2022-04-07 1 [facility] Places 00:00:00 00:00:00 Medical Ce nter Lived History [facility] 2022-04-07 2022-04-07 2 [facility] Homeless 00:00:00 00:00:00 Medical Center Last Year Tobacco use and 2016-03-18 2016-03-18 Smokeless Universit y of exposure 00:00:00 00:00:00 tobacco non-user [facility] Sex Assigned At [birth year] [facility] 00:00:00 00:00:00 Medical Center Smoking Status Start Date Stop Date Source Never smoked tobacco [facility] Medications Ordered Filled Start Stop Current Ordering Indication Dosage Frequency Signature Comments Components Source Medication Medication Date Date Medication? Clinician (SIG) Name Name FENTanyl PF 2022- No 50ug 50 mcg, [place] (SUBLIMAZE 04-22 Slow IV ity o f (PF)) 02:30: 02:11 Push, [place] injection 00 :00 ONCE, 1 Medical 50 mcg dose, On [facility] 04/21/23 at 2130, [place] iopamidol 2022- No [id number] 75mL 75 mL, Univers (ISOVUE 04-22 Intravenou ity o f 370-500 mL) 00:00: 00:00 s, ONCE, 1 [place] injection 00 :00 dose, On Medica l 75 mL [facility] Branch 04/21/23 at 1900, Routine morpHINE (4 2022- No 4mg 4 mg, Slow Univers mg/mL) 04-21 IV Push, ity of injection 4 22:15: 22:22 [place]CE[place] 1 [place] :[place] dose, On Medical [facility] Branch 04/21/23 at 1715, STAT ondansetron 2022- No 4mg 4 mg, Slow Univers (ZOFRAN 04-21 IV Push, ity of (PF)) 22:15: 22:22 ONCE, 1 [place] injection 4 00 :00 dose, On Medi josephine mg [facility] Branch 04/21/23 at 1715, [place] cephALEXin 2023-0 Yes [id number] 500mg Take 1 Univers (KEFLEX) 8-10 capsule by ity o f 500 mg 00:00: mouth in [place] capsule 00 the Medical morning Branch and 1 capsule in the evening. dicyclomine 2023-0 Yes [id number] 20mg Take 1 Univers 20 mg 8-10 tablet by ity of tablet 00:00: mouth 4 [place] (four) Medical times Branch daily. cephALEXin 2023-0 Yes [id number] 500mg Take 1 Univers (KEFLEX) 8-10 capsule by ity o f 500 mg 00:00: mouth in [place] capsule 00 the Medical morning Branch and 1 capsule in the evening. dicyclomine 2023-0 Yes [id number] 20mg Take 1 Univers 20 mg 8-10 tablet by ity of tablet 00:00: mouth 4 [place] 00 (four) Medical times Branch daily. methylPREDN 2023-0 Yes [id number] 84mg Take 21 Univers ISolone 2-09 4102 tablets by ity of (MEDROL, 00:00: mouth [place] PB,) 4 mg 00 SEE-INSTRU Med ical tablets CTIONS. Branch follow package directions methylPREDN 2023-0 Yes [id number] 84mg Take 21 Univers ISolone 2-09 4102 tablets by ity of (MEDROL, 00:00: mouth [place] PB,) 4 mg 00 SEE-INSTRU Med ical tablets CTIONS. Branch follow package directions methylPREDN 2023-0 Yes [id number] 84mg Take 21 Univers ISolone 2-09 4102 tablets by ity of (MEDROL, 00:00: mouth [place] PB,) 4 mg 00 SEE-INSTRU Med ical tablets CTIONS. Branch follow package directions methylPREDN 2023-0 Yes [id number] 84mg Take 21 Univers ISolone 2-09 4102 tablets by ity of (MEDROL, 00:00: mouth [place] PB,) 4 mg 00 SEE-INSTRU Med ical tablets CTIONS. Branch follow package directions methylPREDN 2023-0 Yes [id number] 84mg Take 21 Univers ISolone 2-09 4102 tablets by ity of (MEDROL, 00:00: mouth [place] PB,) 4 mg 00 SEE-INSTRU Med ical tablets CTIONS. Branch follow package directions methylPREDN 3-0 Yes [id number] 84mg Take 21 Univers ISolone 2-09 4102 tablets by ity of (MEDROL, 00:00: mouth [place] PB,) 4 mg 00 SEE-INSTRU Med ical tablets CTIONS. Branch follow package directions loratadine 2022-0 Yes 10mg Take 10 mg U nivers 10 mg 1-15 by mouth ity of tablet 00:00: in the [place] morning. Medical Branch loratadine 3-0 Yes 10mg Take 10 mg U nivers 10 mg 1-15 by mouth ity of tablet 00:00: in the [place] morning. Medical Branch loratadine 2023-0 Yes 10mg Take 10 mg U nivers 10 mg 1-15 by mouth ity of tablet 00:00: in the [place] morning. Medical Branch loratadine 3-0 Yes 10mg Take 10 mg U nivers 10 mg 1-15 by mouth ity of tablet 00:00: in the [place] morning. Medical Branch loratadine 3-0 Yes 10mg Take 10 mg U nivers 10 mg 1-15 by mouth ity of tablet 00:00: in the [place] morning. Medical Branch loratadine 3-0 Yes 10mg Take 10 mg U nivers 10 mg 1-15 by mouth ity of tablet 00:00: in the [place] morning. Medical Branch loratadine 3-0 Yes 10mg Take 10 mg U nivers 10 mg 1-15 by mouth ity of tablet 00:00: in the [place] morning. Medical Branch loratadine 3-0 Yes 10mg Take 10 mg U nivers 10 mg 1-15 by mouth ity of tablet 00:00: in the [place] morning. Medical Branch loratadine 2023-0 Yes 10mg Take 10 mg U nivers 10 mg 1-15 by mouth ity of tablet 00:00: in the [place] morning. Medical Branch loratadine 2023-0 Yes 10mg Take 10 mg U nivers 10 mg 1-15 by mouth ity of tablet 00:00: in the [place] morning. Medical Branch loratadine 2023-0 Yes 10mg Take 10 mg U nivers 10 mg 1-15 by mouth ity of tablet 00:00: in the [place] morning. Medical Branch loratadine 2023-0 Yes 10mg Take 10 mg U nivers 10 mg 1-15 by mouth ity of tablet 00:00: in the [place] [address] morning. Medical Branch HYDROcodone 2023-0 Yes 1{tbl} Take 1 Un [...] 1 tablet in the evening. memantine 5 3-0 Yes 5mg Take 5 mg U nivers mg tablet 1-05 by mouth ity of 00:00: in the [place] morning Medical and 5 mg Branch in the evening. risperiDONE 2023-0 Yes .5mg Take 0.5 [place] 0.5 mg 1-05 mg by ity of tablet 00:00: mouth in [place] the Medical morning Branch and 0.5 mg in the evening. memantine 5 2023-0 Yes 5mg Take 5 mg U nivers mg tablet 1-05 by mouth ity of 00:00: in the [place] morning Medical and 5 mg Branch in the evening. risperiDONE 2023-0 Yes .5mg Take 0.5 [place] 0.5 mg 1-05 mg by ity of tablet 00:00: mouth in [place] 00 the Medical morning Branch and 0.5 mg in the evening. memantine 5 2023-0 Yes 5mg Take 5 mg U nivers mg tablet 1-05 by mouth ity of 00:00: in the [place] morning Medical and 5 mg Branch in the evening. risperiDONE 2023-0 Yes .5mg Take 0.5 [place] 0.5 mg 1-05 mg by ity of tablet 00:00: mouth in [place] 00 the Medical morning Branch and 0.5 mg in the evening. memantine 5 2023-0 Yes 5mg Take 5 mg U nivers mg tablet 1-05 by mouth ity of 00:00: in the [place] morning Medical and 5 mg Branch in the evening. risperiDONE 2023-0 Yes .5mg Take 0.5 [place] 0.5 mg 1-05 mg by ity of tablet 00:00: mouth in [place] [address] the Medical morning Branch and 0.5 mg in the evening. memantine 5 2023-0 Yes 5mg Take 5 mg U nivers mg tablet 1-05 by mouth ity of 00:00: in the [place] morning Medical and 5 mg Branch in the evening. risperiDONE 2023-0 Yes .5mg Take 0.5 [place] 0.5 mg 1-05 mg by ity of tablet 00:00: mouth in [place] [address] the Medical morning Branch and 0.5 mg in the evening. memantine 5 2023-0 Yes 5mg Take 5 mg U nivers mg tablet 1-05 by mouth ity of 00:00: in the [place] [address] morning Medical and 5 mg Branch in the evening. risperiDONE 2023-0 Yes .5mg Take 0.5 [place] 0.5 mg 1-05 mg by ity of tablet 00:00: mouth in [place] [address] the Medical morning Branch and 0.5 mg in the evening. memantine 5 2023-0 Yes 5mg Take 5 mg U nivers mg tablet 1-05 by mouth ity of 00:00: in the [place] [address] morning Medical and 5 mg Branch in the evening. risperiDONE 2023-0 Yes .5mg Take 0.5 [place] 0.5 mg 1-05 mg by ity of tablet 00:00: mouth in [place] [address] the Medical morning Branch and 0.5 mg in the evening. memantine 5 2023-0 Yes 5mg Take 5 mg U nivers mg tablet 1-05 by mouth ity of 00:00: in the [place] [address] morning Medical and 5 mg Branch in the evening. risperiDONE 2023-0 Yes .5mg Take 0.5 [place] 0.5 mg 1-05 mg by ity of tablet 00:00: mouth in [place] the Medical morning Branch and 0.5 mg in the evening. memantine 5 3-0 Yes 5mg Take 5 mg U nivers mg tablet 1-05 by mouth ity of 00:00: in the [place] morning Medical and 5 mg Branch in the evening. risperiDONE 2023-0 Yes .5mg Take 0.5 [place] 0.5 mg 1-05 mg by ity of tablet 00:00: mouth in [place] the Medical morning Branch and 0.5 mg in the evening. memantine 5 3-0 Yes 5mg Take 5 mg U nivers mg tablet 1-05 by mouth ity of 00:00: in the [place] morning Medical and 5 mg Branch in the evening. risperiDONE 2023-0 Yes .5mg Take 0.5 [place] 0.5 mg 1-05 mg by ity of tablet 00:00: mouth in [place] [address] the Medical morning Branch and 0.5 mg in the evening. memantine 5 3-0 Yes 5mg Take 5 mg U nivers mg tablet 1-05 by mouth ity of 00:00: in the [place] morning Medical and 5 mg Branch in the evening. risperiDONE 2023-0 Yes .5mg Take 0.5 [place] 0.5 mg 1-05 mg by ity of tablet 00:00: mouth in [place] [address] the Medical morning Branch and 0.5 mg in the evening. memantine 5 3-0 Yes 5mg Take 5 mg U nivers mg tablet 1-05 by mouth ity of 00:00: in the [place] [address] morning Medical and 5 mg Branch in the evening. risperiDONE 2023-0 Yes .5mg Take 0.5 [place] 0.5 mg 1-05 mg by ity of tablet 00:00: mouth in [place] [address] the Medical morning Branch and 0.5 mg in the evening. cyanocobala 2021-09 Yes INJECT 1 [place] min 1,000 2-27 ML ity of mcg/mL 00:00: INTRAMUSCU [place] injection 00 LARLY Medical EVERY Branch MONTH promethazin 2021-09 Yes GIVE 5 ML U nivers e-dextromet 2-27 BY MOUTH ity of horphan 00:00: EVERY 6 [place] 6.25-15 00 HOURS Medical mg/5 mL NEEDED FOR Branch syrup COUGH cyanocobala 2021-09 Yes INJECT 1 [place] min 1,000 2-27 ML ity of mcg/mL 00:00: INTRAMUSCU [place] injection 00 LARLY Medical EVERY Branch MONTH promethazin 2021-09 Yes GIVE 5 ML U nivers e-dextromet 2-27 BY MOUTH ity of horphan 00:00: EVERY 6 [place] 6.25-15 00 HOURS Medical mg/5 mL NEEDED FOR Branch syrup COUGH cyanocobala 2021-09 Yes INJECT 1 [place] min 1,000 2-27 ML ity of mcg/mL 00:00: INTRAMUSCU [place] injection 00 LARLY Medical EVERY Branch MONTH promethazin 2021-09 Yes GIVE 5 ML U nivers e-dextromet 2-27 BY MOUTH ity of horphan 00:00: EVERY 6 [place] 6.25-15 00 HOURS Medical mg/5 mL NEEDED FOR Branch syrup COUGH cyanocobala 2021-09 Yes INJECT 1 [place] min 1,000 2-27 ML ity of mcg/mL 00:00: INTRAMUSCU [place] injection 00 LARLY Medical EVERY Branch MONTH promethazin 2021-09 Yes GIVE 5 ML U nivers e-dextromet 2-27 BY MOUTH ity of horphan 00:00: EVERY 6 [place] 6.25-15 00 HOURS Medical mg/5 mL NEEDED FOR Branch syrup COUGH cyanocobala 2021-09 Yes INJECT 1 [place] min 1,000 2-27 ML ity of mcg/mL 00:00: INTRAMUSCU [place] injection 00 LARLY Medical EVERY Branch MONTH promethazin 2021-09 Yes GIVE 5 ML U nivers e-dextromet 2-27 BY MOUTH ity of horphan 00:00: EVERY 6 [place] 6.25-15 00 HOURS Medical mg/5 mL NEEDED FOR Branch syrup COUGH cyanocobala 2021-09 Yes INJECT 1 [place] min 1,000 2-27 ML ity of mcg/mL 00:00: INTRAMUSCU [place] injection 00 LARLY Medical EVERY Branch MONTH promethazin 2021-09 Yes GIVE 5 ML U nivers e-dextromet 2-27 BY MOUTH ity of horphan 00:00: EVERY 6 [place] 6.25-15 00 HOURS Medical mg/5 mL NEEDED FOR Branch syrup COUGH cyanocobala 2021-09 Yes INJECT 1 [place] min 1,000 2-27 ML ity of mcg/mL 00:00: INTRAMUSCU [place] injection 00 LARLY Medical EVERY Branch MONTH promethazin 2021-09 Yes GIVE 5 ML U nivers e-dextromet 2-27 BY MOUTH ity of horphan 00:00: EVERY 6 [place] 6.25-15 00 HOURS Medical mg/5 mL NEEDED FOR Branch syrup COUGH cyanocobala 2021-09 Yes INJECT 1 [place] min 1,000 2-27 ML ity of mcg/mL 00:00: INTRAMUSCU [place] injection 00 LARLY Medical EVERY Branch MONTH promethazin 2021-09 Yes GIVE 5 ML U nivers e-dextromet 2-27 BY MOUTH ity of horphan 00:00: EVERY 6 [place] 6.25-15 00 HOURS Medical mg/5 mL NEEDED FOR Branch syrup COUGH cyanocobala 2021-09 Yes INJECT 1 [place] min 1,000 2-27 ML ity of mcg/mL 00:00: INTRAMUSCU [place] injection 00 LARLY Medical EVERY Branch MONTH promethazin 2021-09 Yes GIVE 5 ML U nivers e-dextromet 2-27 BY MOUTH ity of horphan 00:00: EVERY 6 [place] 6.25-15 00 HOURS Medical mg/5 mL NEEDED FOR Branch syrup COUGH cyanocobala 2021-09 Yes INJECT 1 [place] min 1,000 2-27 ML ity of mcg/mL 00:00: INTRAMUSCU [place] injection 00 LARLY Medical EVERY Branch MONTH promethazin 2021-09 Yes GIVE 5 ML U nivers e-dextromet 2-27 BY MOUTH ity of horphan 00:00: EVERY 6 [place] 6.25-15 00 HOURS Medical mg/5 mL NEEDED FOR Branch syrup COUGH cyanocobala 2021-09 Yes INJECT 1 [place] min 1,000 2-27 ML ity of mcg/mL 00:00: INTRAMUSCU [place] injection 00 LARLY Medical EVERY Branch MONTH promethazin 2021-09 Yes GIVE 5 ML U nivers e-dextromet 2-27 BY MOUTH ity of horphan 00:00: EVERY 6 [place] 6.25-15 00 HOURS Medical mg/5 mL NEEDED FOR Branch syrup COUGH cyanocobala 2021-09 Yes INJECT 1 [place] min 1,000 2-27 ML ity of mcg/mL 00:00: INTRAMUSCU [place] injection 00 LARLY Medical EVERY Branch MONTH promethazin 2021-09 Yes GIVE 5 ML U nivers e-dextromet 2-27 BY MOUTH ity of horphan 00:00: EVERY 6 [place] 6.25-15 00 HOURS Medical mg/5 mL NEEDED FOR Branch syrup COUGH citalopram 2021-09 Yes 20mg Take 20 mg U nivers 20 mg 2-24 by mouth ity of tablet 00:00: every [place] 00 morning. Medical Branch citalopram 2021-09 Yes 20mg Take 20 mg U nivers 20 mg 2-24 by mouth ity of tablet 00:00: every [place] 00 morning. Medical Branch citalopram 2021-09 Yes 20mg Take 20 mg U nivers 20 mg 2-24 by mouth ity of tablet 00:00: every [place] 00 morning. Medical Branch citalopram 2021-09 Yes 20mg Take 20 mg U nivers 20 mg 2-24 by mouth ity of tablet 00:00: every [place] 00 morning. Medical Branch citalopram 2021-09 Yes 20mg Take 20 mg U nivers 20 mg 2-24 by mouth ity of tablet 00:00: every [place] 00 morning. Medical Branch citalopram 2021-09 Yes 20mg Take 20 mg U nivers 20 mg 2-24 by mouth ity of tablet 00:00: every [place] 00 morning. Medical Branch citalopram 2021-09 Yes 20mg Take 20 mg U nivers 20 mg 2-24 by mouth ity of tablet 00:00: every [place] 00 morning. Medical Branch citalopram 2021-09 Yes 20mg Take 20 mg U nivers 20 mg 2-24 by mouth ity of tablet 00:00: every [place] 00 morning. Medical Branch citalopram 2021-09 Yes 20mg Take 20 mg U nivers 20 mg 2-24 by mouth ity of tablet 00:00: every [place] 00 morning. Medical Branch citalopram 2021-09 Yes 20mg Take 20 mg U nivers 20 mg 2-24 by mouth ity of tablet 00:00: every [place] morning. Medical Branch citalopram 2021- Yes 20mg Take 20 mg U nivers 20 mg 2-24 by mouth ity of tablet 00:00: every [place] morning. Medical Branch citalopram 2021- Yes 20mg Take 20 mg U nivers 20 mg 2-24 by mouth ity of tablet 00:00: every [place] morning. Medical Branch alendronate 2021- Yes 70mg Take 70 mg Univers 70 mg 1-09 by mouth ity of tablet 00:00: weekly. [place] Medical Branch alendronate 2021- Yes 70mg Take 70 mg Univers 70 mg 1-09 by mouth ity of tablet 00:00: weekly. [place] Medical Branch alendronate 2021-09 Yes 70mg Take 70 mg Univers 70 mg 1-09 by mouth ity of tablet 00:00: weekly. [place] Medical Branch alendronate 2021- Yes 70mg Take 70 mg Univers 70 mg 1-09 by mouth ity of tablet 00:00: weekly. [place] Medical Branch alendronate 2021- Yes 70mg Take 70 mg Univers 70 mg 1-09 by mouth ity of tablet 00:00: weekly. [place] Medical Branch alendronate 2021- Yes 70mg Take 70 mg Univers 70 mg 1-09 by mouth ity of tablet 00:00: weekly. [place] Medical Branch alendronate 2021- Yes 70mg Take 70 mg Univers 70 mg 1-09 by mouth ity of tablet 00:00: weekly. [place] [address] Medical Branch alendronate 2021- Yes 70mg Take 70 mg Univers 70 mg 1-09 by mouth ity of tablet 00:00: weekly. [place] Medical Branch alendronate 2021- Yes 70mg Take 70 mg Univers 70 mg 1-09 by mouth ity of tablet 00:00: weekly. [place] Medical Branch alendronate 2021- Yes 70mg Take 70 mg Univers 70 mg 1-09 by mouth ity of tablet 00:00: weekly. [place] [address] Medical Branch alendronate 2021- Yes 70mg Take 70 mg Univers 70 mg 1-09 by mouth ity of tablet 00:00: weekly. [place] [address] Medical Branch alendronate 2021- Yes 70mg Take 70 mg Univers 70 mg 1-09 by mouth ity of tablet 00:00: weekly. [place] Medical Branch lactulose 2021-09 Yes Univers 10 gram/15 1-02 ity of mL solution 00:00: [place] [facility] Branch tiZANidine 2021-09 Yes Univers 4 mg tablet -02 ity of 00:00: [place] [facility] Branch lactulose 2021-09 Yes Univers 10 gram/15 -02 ity of mL solution 00:00: [place] [facility] Branch tiZANidine 2021-09 Yes Univers 4 mg tablet -02 ity of 00:00: [place] [facility] Branch lactulose 2021-09 Yes Univers 10 gram/15 -02 ity of mL solution 00:00: [place] [address] Medical Branch tiZANidine 2021-09 Yes Univers 4 mg tablet -02 ity of 00:00: [place] [facility] Branch lactulose 2021-09 Yes Univers 10 gram/15 -02 ity of mL solution 00:00: [place] [facility] Branch tiZANidine 2021-09 Yes Univers 4 mg tablet -02 ity of 00:00: [place] [facility] Branch lactulose 2021-09 Yes Univers 10 gram/15 02 ity of mL solution 00:00: [place] [address] Medical Branch tiZANidine 2021-09 Yes Univers 4 mg tablet -02 ity of 00:00: [place] [facility] Branch lactulose 2021-09 Yes Univers 10 gram/15 -02 ity of mL solution 00:00: [place] [address] Medical Branch tiZANidine 2021-09 Yes Univers 4 mg tablet -02 ity of 00:00: [place] Medical Branch lactulose 2021-09 Yes Univers 10 gram/15 -02 ity of mL solution 00:00: [place] [facility] Branch tiZANidine 2021-09 Yes Univers 4 mg tablet -02 ity of 00:00: [place] [address] Medical Branch lactulose 2021-09 Yes Univers 10 gram/15 1-02 ity of mL solution 00:00: [place] [address] Medical Branch tiZANidine 2021-09 Yes Univers 4 mg tablet 1-02 ity of 00:00: [place] [address] Medical Branch lactulose 2021-09 Yes Univers 10 gram/15 -02 ity of mL solution 00:00: [place] [address] Medical Branch tiZANidine 2021-09 Yes Univers 4 mg tablet 1-02 ity of 00:00: Medical Branch lactulose 2021-09 [...] MG TOTAL) BY MOUTH Medical DAILY. Branch traMADoL Yes 50mg Take 50 mg [facility] [...] 30 min. . HYDROcodone 0 Yes 1{tbl} Q.[id number] Take [address] [facility] [address] -acetaminop 04-13 [id number] tablet [facility] (NORCO 20:18: 3D [...] MG 20:18: mouth Medical tablet 17 nightly. [place] traMADoL 0 Yes 50mg Take 50 mg [...] MCG 20:18: mouth Medical capsule 17 daily. [place] alendronate Yes 70mg Take [address] (FOSAMAX) 8-02 by mouth [facility] 70 MG 20:18: every 7 Medical tablet 17 days Take Center in the morning with a full glass of water, on an empty stomach, and do not take anything else by mouth or lie down for the next 30 min. . HYDROcodone Yes 1{tbl} Q.[id number] Take [address] -acetaminop 04-13 [id number] tablet by [facility] (NORCO 20:18: 3D mouth 3 Medi josephine 5-325) 17 (three) Center 5-325 mg times per tablet daily. ursodioL Yes 500mg QD Take [address] (ACTIGALL) 8-02 mg by [facility] 500 MG 20:18: mouth Medical tablet 17 daily. [place] ALPRAZolam Yes 2mg Take 2 mg CH [...] MG 20:18: mouth Medical tablet 17 nightly. [place] traMADoL Yes 50mg Take 50 mg [facility] [...] 20:18: daily. Medic al MG tablet 17 [place] linaCLOtide Yes 145ug Take [address] (Linzess) 8-02 mcg by [facility] 145 mcg Cap 20:18: mouth Medic al 17 every Center morning before breakfast. lubiproston Yes 24ug QD Take [address] e (AMITIZA) 8-02 mcg by [facility] 24 MCG 20:18: mouth Medical capsule 17 daily. [place] alendronate Yes 70mg Take [address] (FOSAMAX) 8-02 by mouth [facility]ukes 70 MG 20:18: every 7 Medical tablet 17 days Take Center in the morning with a full glass of water, on an empty stomach, and do not take anything else by mouth or lie down for the next 30 min. . HYDROcodone Yes 1{tbl} Q.[id number] Take [address] -acetaminop 8- [id number] tablet by [facility] (NORCO 20:18: 3D [...] next 30 min. . HYDROcodone Yes 1{tbl} Q.[id number] Take [address] -acetaminop 04-13 [id number] tablet by [facility] (NORCO 20:18: 3D [...] MCG 20:18: mouth Medical capsule 17 daily. [place] alendronate Yes 70mg Take [address] (FOSAMAX) 8-02 by mouth [facility] 70 MG 20:18: every 7 Medical tablet 17 days Take Center in the morning with a full glass of water, on an empty stomach, and do not take anything else by mouth or lie down for the next 30 min. . HYDROcodone 0 Yes 1{tbl} Q.[id number] Take [address] -acetaminop 8-02 [id number] tablet by [facility] (NORCO 20:18: 3D mouth 3 Medi josephine 5-325) 17 (three) Center 5-325 mg times per tablet daily. ursodioL 0 Yes 500mg QD Take [address] [facility] (ACTIGALL) 8-02 mg by [facility] 500 MG 20:18: mouth Medical tablet 17 daily. [place] ALPRAZolam 0 Yes 2mg Take 2 mg [...] MG 20:18: mouth Medical tablet 17 nightly. [place] traMADoL Yes 50mg Take 50 mg [facility] [...] MCG 20:18: mouth Medical capsule 17 daily. [place] alendronate Yes 70mg Take [address] [facility] (FOSAMAX) 8-02 by mouth [facility] 70 MG 20:18: every 7 Medical tablet 17 days Take Center in the morning with a full glass of water, on an empty stomach, and do not take anything else by mouth or lie down for the next 30 min. . HYDROcodone 0 Yes 1{tbl} Q.[id number] Take [address] [facility] -acetaminop 8- [id number] tablet by [facility] (NORCO 20:18: 3D mouth 3 Medi josephine 5-325) 17 (three) Center 5-325 mg times per tablet daily. ursodioL 0 Yes 500mg QD Take [address] (ACTIGALL) 8-02 mg by [facility] 500 MG 20:18: mouth Medical tablet 17 daily. Center ALPRAZolam 0 Yes 2mg Take [...] next 30 min. . HYDROcodone Yes 1{tbl} Q.[id number] Take [address] [facility] -acetaminop 04-13 [id number] tablet by [facility] (NORCO 20:18: 3D mouth 3 Medi josephine 5-325) 17 (three) Center 5-325 mg times per tablet daily. ursodioL Yes 500mg QD Take [address] (ACTIGALL) 8-02 mg by [facility] 500 MG 20:18: mouth Medical tablet 17 daily. [place] ALPRAZolam Yes 2mg Take 2 mg CH [...] MCG 20:18: mouth Medical capsule 17 daily. [place] alendronate Yes 70mg Take [address] [facility] (FOSAMAX) 8-02 by mouth [facility] 70 MG 20:18: every 7 Medical tablet 17 days Take Center in the morning with a full glass of water, on an empty stomach, and do not take anything else by mouth or lie down for the next 30 min. . HYDROcodone 0 Yes 1{tbl} Q.[id number] Take [address] [facility] [address] -acetaminop 04-13 [id number] tablet by [facility] (NORCO 20:18: 3D [...] Take [address] [facility] (ULTRAM) 50 02 by mouth Luke s mg tablet 20:18: [...] 30 min. . HYDROcodone 0 Yes 1{tbl} Q.[id number] Take [address] [facility] [address] -acetaminop 8- [id number] tablet by [facility] (NORCO 20:18: 3D [...] St (PEPCID) 20 8-02 by mouth 2 Jamsyn kes MG tablet 20:18: (two) Medical 17 times Center daily. omega-3 2022-0 Yes 2g Q.5D Take 2 g [facility] [...] MCG 20:18: mouth Medical capsule 17 daily. [place] alendronate Yes 70mg Take [address] [facility] (FOSAMAX) 8-02 by mouth [facility] 70 MG 20:18: every 7 Medical tablet 17 days Take Center in the morning with a full glass of water, on an empty stomach, and do not take anything else by mouth or lie down for the next 30 min. . HYDROcodone 0 Yes 1{tbl} Q.[id number] Take [address] [facility] [address] -acetaminop - [id number] tablet by [facility] (NORCO 20:18: 3D mouth 3 Medi josephine 5-325) 17 (three) Center 5-325 mg times per tablet daily. ursodioL 0 Yes 500mg QD Take [address] [facility] (ACTIGALL) 8-02 mg by [facility] 500 MG 20:18: mouth Medical tablet 17 daily. [place] ALPRAZolam 0 Yes 2mg Take 2 mg [...] MG 20:18: mouth Medical tablet 17 nightly. [place] traMADoL Yes 50mg Take 50 mg [facility] [...] mouth Medical D3) 25 mcg 17 daily. [place] (1,000 unit) tablet lisinopriL Yes 10mg QD [...] MCG 20:18: mouth Medical capsule 17 daily. [place] alendronate Yes 70mg Take [address] [facility] (FOSAMAX) 8-02 by mouth [facility] 70 MG 20:18: every 7 Medical tablet 17 days Take Center in the morning with a full glass of water, on an empty stomach, and do not take anything else by mouth or lie down for the next 30 min. . HYDROcodone Yes 1{tbl} Q.[id number] Take [address] [facility] [address] -acetaminop 04-13 [id number] tablet by [facility] (NORCO 20:18: 3D mouth 3 Medi josephine 5-325) 17 (three) Center 5-325 mg times per tablet daily. ursodioL Yes 500mg QD Take [address] (ACTIGALL) 8-02 mg by [facility] 500 MG 20:18: mouth Medical tablet 17 daily. Center ALPRAZolam Yes 2mg Take [address] (XANAX) 2 04-13 by mouth [facility] MG tablet 20:18: every Medical 17 night as Center needed for Sleep. pantoprazol Yes 40mg QD Take [address] [facility] e 04-13 by mouth [facility] (PROTONIX) 20:18: daily. Medic al 40 MG 17 Center tablet citalopram Yes 20mg QD Take [address] (CeleXA) 20 04-13 by mouth Luke [facility] MG tablet 20:18: daily. Medica l 17 Center risperiDONE Yes .5mg QD Take 0.[address] (RisperDAL) 8-02 mg by [facility] 0.5 MG 20:18: mouth Medical tablet 17 nightly. Center amLODIPine 2022- No 5mg QD Take [address] [facility] (NORVASC) 5 04-13- tablet (5 Jasmyn kes MG tablet 00:00: 23:59 mg total) Me dical 00 :00 by mouth Center daily. amLODIPine 2022- No 5mg QD Take [address] [facility] (NORVASC) 5 04-13- tablet (5 Jasmyn kes MG tablet 00:00: 23:59 mg total) Me dical 00 :00 by mouth Center daily. amLODIPine 2022- No 5mg QD Take [address] [facility] (NORVASC) 5 04-13- tablet (5 Jasmyn kes MG tablet 00:00: 23:59 mg total) Me dical 00 :00 by mouth Center daily. amLODIPine 2022- No 5mg QD Take [address] [facility] (NORVASC) 5 04-13- tablet (5 Jasmyn kes MG tablet 00:00: [...] by mouth Center daily. iopamidol 2020-09- No [id number] 100mL 100 mL, Univers (ISOVUE 09-23 Intravenou ity o f 370-500 mL) 17:55: 17:55 s, ONCE, 1 [place] injection 00 :00 dose, On Medica l 100 mL Fri Branch 07/24/21 at 1215, Routine ondansetron 2020-09- No 4mg 4 mg, Slow Univers (ZOFRAN 09-23 IV Push, ity of (PF)) 17:45: 16:38 ONCE, 1 [place] injection 4 00 :00 dose, On Medi josephine mg Tue07/24/21 at 1145, Routine morpHINE 2020-09 Yes 4mg 4 mg, Slow Uni vers injection 4 12 IV Push, ity of mg 16:30: Q4HPRN, [place] 24 Starting Medical on Tue [place] 07/24/21 at 1030, Until Discontinu ed, Routine, [...] next 30 min. . HYDROcodone Yes 1{tbl} Q.[id number] Take [address] [facility] -acetaminop 8-26 [id number] tablet by [facility] (NORCO 10:59: 3D [...] 30 min. . HYDROcodone 0 Yes 1{tbl} Q.[id number] Take [address] [facility] [address] -acetaminop 8-26 [id number] tablet by [facility] (NORCO 10:59: 3D [...] next 30 min. . HYDROcodone Yes 1{tbl} Q.[id number] Take [address] [facility] [address] -acetaminop 8-26 [id number] tablet by [facility] (NORCO 10:59: 3D [...] MCG 09:40: mouth Medical capsule 47 daily. [place] alendronate Yes 70mg Take [address] [facility] (FOSAMAX) 8-26 by mouth [facility] 70 MG 09:40: every 7 Medical tablet 47 days Take Center in the morning with a full glass of water, on an empty stomach, and do not take anything else by mouth or lie down for the next 30 min. . HYDROcodone Yes 1{tbl} Q.[id number] Take [address] [facility] [address] -acetaminop 8-26 [id number] tablet by [facility] (NORCO 09:40: 3D mouth 3 Medi josephine 5-325) 47 (three) Center 5-325 mg times per tablet daily. ursodioL Yes 500mg QD Take [address] [facility] (ACTIGALL) 8-26 mg by [facility] 500 MG 09:40: mouth Medical tablet 47 daily. Center meclizine Yes [facility] (ANTIVERT) 6-21 [facility] 25 mg 00:00: Medical tablet 00 Center meclizine [address] [facility] (ANTIVERT) 6-21 [facility] 25 mg 00:00: Medical tablet 00 Center meclizine [address] [facility] (ANTIVERT) 6-21 [facility] 25 mg 00:00: Medical tablet 00 [facility] (ANTIVERT) 6-21 [facility] 25 mg 00:00: Medical tablet [facility] (ANTIVERT) 6-21 [facility] 25 mg 00:00: Medical tablet 00 [facility] (ANTIVERT) 6-21 [facility] 25 mg 00:00: Medical tablet [facility] (ANTIVERT) 6-21 [facility] 25 mg 00:00: Medical tablet 00 [facility] (ANTIVERT) 6-21 [facility] 25 mg 00:00: Medical tablet [facility] (ANTIVERT) 6-21 [facility] 25 mg 00:00: Medical tablet [facility] (ANTIVERT) 6-21 [facility] 25 mg 00:00: Medical tablet [facility] (ANTIVERT) 6-21 [facility] 25 mg 00:00: Medical tablet [facility] (ANTIVERT) 6-21 [facility] 25 mg 00:00: Medical tablet [facility] (ANTIVERT) 6-21 [facility] 25 mg 00:00: Medical tablet 00 [facility] (ANTIVERT) 6-21 [facility] 25 mg 00:00: Medical tablet [facility] (ANTIVERT) 6-21 [facility] 25 mg 00:00: Medical tablet 00 [place] Nortriptyli Nortriptyli Yes HOLLIE TAKE 1 [facility] [...] Take 30 mg Uni vers (AVINZA) 30 07 by mouth ity of mg 24 hr 08:12: daily. [facility] 18 Medical Branch ALPRAZolam Yes 2mg Take [...] Take 30 mg Uni vers (AVINZA) 30 - by mouth ity of mg 24 hr 08:12: daily. [facility] 18 Medical Branch ALPRAZolam Yes 2mg Take [...] as needed Medical for Sleep. Branch morphine 2015-0 Yes 30mg Take 30 mg Uni vers (AVINZA) 30 7-07 by mouth ity of mg 24 hr 08:12: daily. [facility] 18 Medical Branch amitriptyli 0 Yes 10mg [...] daily. [place] capsule 18 Medical Branch ALPRAZolam 0 Yes [...] daily. [place] capsule 18 Medical Branch ALPRAZolam 2015-0 Yes [...] of mg 24 hr 08:12: daily. [place] [facility] 18 Medical Branch ALPRAZolam 0 Yes [...] A Medical DAY WITH Branch FOOD meloxicam 2016-0 Yes TAKE 1 Univer s (MOBIC) 7.5 [...] ity of Powd 00:00: [place] [facility] gabapentin 0 Yes TAKE 1 Unive [...] Immunizations Ordered Filled Immunization Date Status Comments [facility] e Immunization Name Name SARS-COV-2 COVID-19 2020-11-11 Completed Unive rsity of PFIZER VACCINE 00:00:00 [facility] SARS-COV-2 COVID-19 2020-11-11 Completed Unive rsity of PFIZER VACCINE 00:00:00 [facility] SARS-COV-2 COVID-19 2020-11-11 Completed Unive rsity of PFIZER VACCINE 00:00:00 [facility] SARS-COV-2 COVID-19 2020-11-11 Completed Unive rsity of PFIZER VACCINE 00:00:00 [facility] SARS-COV-2 COVID-19 2020-11-11 Completed Unive rsity of PFIZER VACCINE 00:00:00 [facility] SARS-COV-2 COVID-19 2020-11-11 Completed Unive rsity of PFIZER VACCINE 00:00:00 [facility] SARS-COV-2 COVID-19 2020-11-11 Completed Unive rsity of PFIZER VACCINE 00:00:00 [facility] SARS-COV-2 COVID-19 2020-11-11 Completed Unive rsity of PFIZER VACCINE 00:00:00 [facility] SARS-COV-2 COVID-19 2020-11-11 Completed Unive rsity of PFIZER VACCINE 00:00:00 [facility] SARS-COV-2 COVID-19 2020-11-11 Completed Unive rsity of PFIZER VACCINE 00:00:00 [facility] SARS-COV-2 COVID-19 2020-11-11 Completed Unive rsity of PFIZER VACCINE 00:00:00 [facility] SARS-COV-2 COVID-19 2020-11-11 Completed Unive rsity of PFIZER VACCINE 00:00:00 [facility] SARS-COV-2 COVID-19 2020-11-11 Completed Unive rsity of PFIZER VACCINE 00:00:00 [facility] SARS-COV-2 COVID-19 2020-11-11 Completed Unive rsity of PFIZER VACCINE 00:00:00 [facility] SARS-COV-2 COVID-19 2020-11-11 Completed Unive rsity of PFIZER VACCINE 00:00:00 [facility] SARS-COV-2 COVID-19 2020-11-11 Completed Unive rsity of PFIZER VACCINE 00:00:00 [facility] SARS-COV-2 COVID-19 2020-10-21 Completed Unive rsity of PFIZER VACCINE 00:00:00 [facility] SARS-COV-2 COVID-19 2020-10-21 Completed Unive rsity of PFIZER VACCINE 00:00:00 [facility] SARS-COV-2 COVID-19 2020-10-21 Completed Unive rsity of PFIZER VACCINE 00:00:00 [facility] SARS-COV-2 COVID-19 2020-10-21 Completed Unive rsity of PFIZER VACCINE 00:00:00 [facility] SARS-COV-2 COVID-19 2020-10-21 Completed Unive rsity of PFIZER VACCINE 00:00:00 [facility] SARS-COV-2 COVID-19 2020-10-21 Completed Unive rsity of PFIZER VACCINE 00:00:00 [facility] SARS-COV-2 COVID-19 2020-10-21 Completed Unive rsity of PFIZER VACCINE 00:00:00 [facility] SARS-COV-2 COVID-19 2020-10-21 Completed Unive rsity of PFIZER VACCINE 00:00:00 [facility] SARS-COV-2 COVID-19 2020-10-21 Completed Unive rsity of PFIZER VACCINE 00:00:00 [facility] SARS-COV-2 COVID-19 2020-10-21 Completed Unive rsity of PFIZER VACCINE 00:00:00 [facility] SARS-COV-2 COVID-19 2020-10-21 Completed Unive rsity of PFIZER VACCINE 00:00:00 [facility] SARS-COV-2 COVID-19 2020-10-21 Completed Unive rsity of PFIZER VACCINE 00:00:00 [facility] SARS-COV-2 COVID-19 2020-10-21 Completed Unive rsity of PFIZER VACCINE 00:00:00 [facility] SARS-COV-2 COVID-19 2020-10-21 Completed Unive rsity of PFIZER VACCINE 00:00:00 [facility] SARS-COV-2 COVID-19 2020-10-21 Completed Unive rsity of PFIZER VACCINE 00:00:00 [facility] SARS-COV-2 COVID-19 2020-10-21 Completed Unive rsity of PFIZER VACCINE 00:00:00 [facility] Vital Signs Vital Name Observation Time Observation Value Comments Source WEIGHT 2021-03-10 62.596 kg 11:08:00 Systolic blood 2023-04-22 159 mm[Hg] [place] of pressure 03:00:00 [facility] Diastolic blood 2023-04-22 86 mm[Hg] [place] o f pressure 03:00:00 [facility] Heart rate 2023-04-22 80 /min [facility] 03:00:00 [facility] Respiratory rate 2023-04-22 16 /min [facility] 03:00:00 [facility] Oxygen saturation 2023-04-22 97 /min [facility] in Arterial blood 03:00:00 [facility] by Pulse oximetry [place] Body temperature 2023-04-21 36.78 Carolann [facility] of 21:46:00 [facility] Body height 2023-04-21 152.4 cm University of 21:46:00 [facility] Body weight 2023-04-21 68.04 kg University of 21:46:00 [facility] BMI 2023-04-21 29.29 kg/m2 [facility] of 21:46:00 [facility] Body height 2022-10-21 149.9 cm [place] of 15:35:00 [facility] Body weight 2022-10-21 62.596 kg University of 15:35:00 [facility] BMI 2022-10-21 27.87 kg/m2 University of 15:35:00 [facility] Body height 2022-10-04 149.9 cm University of 20:30:00 [facility] Body weight 2022-10-04 62.596 kg University of 20:30:00 [facility] BMI 2022-10-04 27.87 kg/m2 [facility] of 20:30:00 [facility] WEIGHT 2022-04-11 62.8 kg 19:25:00 WEIGHT 2022-04-09 62.795 kg 11:00:00 WEIGHT 2022-04-11 62.8 kg 19:25:00 WEIGHT 2022-04-09 62.795 kg 11:00:00 Systolic blood 2021-07-24 144 mm[Hg] University of pressure 19:28:00 [facility] Diastolic blood 2021-07-24 90 mm[Hg] [place] [facility] f pressure 19:28:00 [facility] Heart rate 2021-07-24 87 /min University 19:28:00 [facility] Respiratory rate 2021-07-24 18 /min University 19:28:00 [facility] Oxygen saturation 2021-07-24 97 /min [facility] in Arterial blood 19:28:00 [facility] by Pulse oximetry [place] Body temperature 2021-07-24 37 Carolann [facility] 16:20:00 [facility] Body weight 2021-07-24 61.236 kg University 16:20:00 [facility] BMI 2021-07-24 25.51 kg/m2 University 16:20:00 [facility] HEIGHT 2021-05-04 152.4 cm 17:29:00 WEIGHT 2021-05-04 61.689 kg 17:29:00 HEIGHT 2021-05-04 152.4 cm 17:29:00 WEIGHT 2021-05-04 61.689 kg 17:29:00 WEIGHT 2021-03-10 62.596 kg 11:08:00 Systolic blood 2022-04-13 132 mm[Hg] [facility] pressure 15:18[facility] Diastolic blood 2022-04-13 85 mm[Hg] [facility] pressure 15:18:00 [facility] Heart rate 2022-04-13 83 /min [...] 2022-04-[address] [facility] 19:25:00 [facility] BMI 2022-04-11 27.04 kg/m2 [facility] 19:25:00 [facility] Systolic blood 2021-05-07 156 mm[Hg] [facility] pressure 08:[facility] Center Diastolic blood 2021-05-07 74 mm[Hg] [facility] pressure 08:00:00 [facility] Heart rate 2021-05-07 76 /min [facility] 08:00:00 [facility] Body temperature 2021-05-[address] 08:00:00 [facility] Respiratory rate 2021-05-07 17 /min [facility] 08:00:00 [facility] Oxygen saturation 2021-05-07 97 /min [facility] in Arterial blood 08:00:00 Medical Ce nter by Pulse oximetry Body height 2021-05-[address] [facility] 17:29:00 [facility] Body weight 2021-05-[address] [facility] 17:29:00 [facility] BMI 2021-05-04 26.56 kg/m2 [facility] 17:29:00 [facility] BP Systolic 2018-02-01 131 mm[Hg] Location: [facility]; [facility] 08:36:00 Position: Sitting BP Diastolic 2018-02-01 78 mm[Hg] Location: [facility] 08:36:00 Position: Sitting Height 2018-02-01 60 [in_us] [facility] 08:36:00 Weight 2018-02-01 117 [lb_av] [facility] 08:36:00 Body Mass Index 2018-02-01 22.85 kg/m2 [facility] Calculated 08:36:00 Heart Rate 2018-02-01 73 /min Location: R [facility] 08:36:00 Brachial Artery; Procedures Procedure Date / Time Performing Clinician Source Performed URINALYSIS 2023-04-21 23:23:00 Kelle Aguirre [facility] CT ABDOMEN PELVIS W 2023-04-21 23:05:27 [facility] LIPASE 2023-04-21 22:09:00 Kelle Aguirre [facility] MAGNESIUM 2023-04-21 22:09:00 Kelle Aguirre [facility] COMP. METABOLIC PANEL 2023-04-21 22:09:[address] [facility] ([id number]) [facility] CBC WITH DIFF 2023-04-21 22:09:00 Kelle Aguirre [facility] MEDICAL RELEASE/CLEARANCE 2023-03-02 05:01:00 Doctor Unassigned, No [facility] AUTHORIZATION FOR RELEASE 2023-01-05 05:01:00 Doctor Unassigned, No [facility] ASSIGNMENT OF BENEFITS 2022-10-04 20:24:45 Doctor Unassigned, No [facility] AUTHORIZATION FOR RELEASE 2022-09-28 06:01:00 Doctor Unassigned, No [facility] POCT-GLUCOSE METER 2022-04-13 15:22:00 [facility] SARS-COV2/RT-PCR ([facility] & 2022-04-13 13:39:00 [facility] REF LAB[facility]) [facility] POCT-GLUCOSE METER 2022-04-13 11:32:00 [facility] POCT-GLUCOSE METER 2022-04-13 07:48:00 [facility] BASIC METABOLIC PANEL 2022-04-13 04:31:00 [facility] MAGNESIUM 2022-04-13 04:31:00 [facility] PHOSPHORUS 2022-04-13 04:31:00 [facility] CBC (HEMOGRAM ONLY) 2022-04-13 04:31:00 [facility] POCT-GLUCOSE METER 2022-04-12 20:50[facility] 2022-04-12 15:42:[facility]SE [facility]ER 2022-04-12 12:42:00 [facility] PO[facility]SE METER 2022-04-12 08:06:00 [facility] BASIC [facility]OLIC PANEL 2022-04-12 03:22:00 [facility] 2022-04-12 03:22:00 [facility] PHOSPHORUS 2022-04-12 03:22:00 [facility] CBC (HEMOGRAM ONLY) 2022-04-12 03:22:00 [facility] POCT-[facility]SE METER 2022-04-11 20:41:00 [facility] POCT-[facility]SE METER 2022-04-11 15:29:00 [facility] POCT-[facility]SE METER 2022-04-11 11:06:00 [facility] POCT-[facility]SE METER 2022-04-11 07:19:00 [facility] BASIC METABOLIC PANEL 2022-04-11 05:21:00 [facility] MAGNESIUM 2022-04-11 05:21:00 [facility] PHOSPHORUS 2022-04-11 05:21:00 [facility] CBC (HEMOGRAM ONLY) 2022-04-11 05:21:00 [facility] POCT-GLUCOSE METER 2022-04-10 21:16:00 [facility] POCT-GLUCOSE METER 2022-04-10 16:48:00 [facility] POCT-GLUCOSE METER 2022-04-10 11:11:00 [facility] POCT-GLUCOSE METER 2022-04-10 07:33:00 [facility] BASIC METABOLIC PANEL 2022-04-10 06:00:00 [facility] MAGNESIUM 2022-04-10 06:00:00 [facility] PHOS[facility]US 2022-04-10 06:00:00 [facility] CBC (HEMOGRAM ONLY) 2022-04-10 06:00:00 [facility] PREPARE LEUKO-REDUCED RBC 2022-04-09 23:54:00 [facility] POCT-GLUCOSE METER 2022-04-09 22:57:00 [facility] POCT-GLUCOSE METER 2022-04-09 17:04:00 [facility] CBC (HEMOGRAM ONLY) 2022-04-09 16:27:00 [facility] POCT-GLUCOSE METER 2022-04-09 11:41:00 [facility] POCT-GLUCOSE METER 2022-04-09 07:35:00 [facility] URINE CULTURE 2022-04-09 05:49:00 [facility] CBC W/PLT COUNT & AUTO 2022-04-09 05:41:[address] [facility] BASIC METABOLIC PANEL 2022-04-09 05:41:00 [facility] MAGNESIUM 2022-04-09 05:41:00 [facility] PHOSPHORUS 2022-04-09 05:41:00 [facility] CBC W/PLT COUNT & AUTO 2022-04-09 05:41:00 Carlos Manuel [facility] POCT-GLUCOSE METER 2022-04-09 00:05:00 Prema [facility] TRANSFUSE LEUKO-REDUCED 2022-04-08 23:02:00 Trip [facility] RED BLOOD CELLS Center CBC (HEMOGRAM ONLY) 2022-04-08 21:58:00 [facility]IC METABOLIC PANEL 2022-04-08 21:58:00 Carlos Manuel [facility] MAGNESIUM 2022-04-08 21:58:00 Carlos Manuel [facility] PHOSPHORUS 2022-04-08 21:58:00 [facility], VENOUS 2022-04-08 21:58:00 [facility] VENOUS DOPPLER LEGS 2022-04-08 19:15:00 [facility]AL [facility] W/PLT COUNT & AUTO 2022-04-08 17:42:00 [facility] W/PLT COUNT & AUTO 2022-04-08 17:42:[address] [facility] BLOOD CULTURE 2022-04-08 16:09:00 [facility] [place] XR CHEST 1 VIEW PORTABLE 2022-04-08 15:24:[address] [facility] / BEDSIDE [facility] BASIC METABOLIC PANEL 2022-04-08 15:22:00 [facility] LACTIC ACID, VENOUS 2022-04-08 15:22:00 [facility] POCT-GLUCOSE METER 2022-04-08 15:20:00 [facility] POCT-GLUCOSE METER 2022-04-08 11:31:00 [facility] EXTREMITY 2022-04-08 03:52:00 ShepherdFlorentino [facility] WITHOUT IV CONTRAST RIGHT [facility] XR PELVIS 1 OR 2 VIEWS 2022-04-07 20:23:00 Florentino Shepherd [facility] POCT-GLUCOSE METER 2022-04-07 17:26:00 Perma [facility] TISSUE EXAM 2022-04-07 15:36:00 Heaven Garza [facility] XR PELVIS 1 OR 2 VIEWS 2022-04-07 15:10:00 Heaven Garza [facility] HEMIARTHROPLASTY, HIP 2022-04-07 12:16:00 Heaven Garza [facility] POCT-GLUCOSE METER 2022-04-07 09:49:00 [facility] AND [facility]CREEN, 2022-04-07 09:12:00 Armani Vela [facility] CBC W/PLT COUNT & AUTO 2022-04-07 06:19:00 Rosa Isela Ching [facility] DIFFERENTIAL [facility] CBC W/PLT COUNT & AUTO 2022-04-07 06:19:00 Rosa Isela Ching [facility] DIFFERENTIAL [facility] URINE CULTURE 2022-04-07 05:15:00 Rosa Isela Ching [facility] URINALYSIS W/ REFLEX 2022-04-07 05:15:00 [facility] URINE CULTURE [facility] BASIC METABOLIC PANEL 2022-04-07 05:05:00 Rosa Isela Ching [facility] SARS-COV2/RT-PCR ([facility] & 2022-04-06 21:32[facility]00 [facility] CT ABDOMEN PELVIS W 2021-07-24 18:00:55 Glenn Paulson [facility] CONTRAST Medical Branch URINALYSIS 2021-07-24 17:39:00 Glenn Paulson [facility] [place] [facility] LIPASE 2021-07-24 16:33:00 Paulson, [facility] COMP. METABOLIC PANEL 2021-07-24 16:33:00 [facility] ([id number]) Medical [place] CBC WITH DIFF 2021-07-24 16:33:00 Paulson, [facility] NOTICE OF PRIVACY 2021-07-24 16:11:11 Doctor Unassigned, No [facility] PRACTICES Name Medical Branch REPORT OF PROCEDURE - 2021-05-06 16:07:30 [facility] URL Center ERCP,DIRECT VISUALIZATION 2021-05-06 15:00:00 Nikita [facility] SPY GLASS Center PROCEDURE W/ C-ARM 2021-05-06 15:00:00 [facility] ERCP,BALLOON SWEEPING 2021-05-06 15:00:00 Nikita Juan Alberto Yasmani [facility] CBC W/PLT COUNT & AUTO 2021-05-06 05:51:00 [facility] DIFFERENTIAL [facility] BASIC METABOLIC PANEL (7) 2021-05-06 05:51:00 [facility] HEPATIC FUNCTION PANEL 2021-05-06 05:51:00 [facility] ABORH, MANUAL 2021-05-05 05:07:00 Zunilda Rubin [facility] TYPE AND SCREEN, 2021-05-05 04:14:00 [facility] AUTOMATED Center PROTHROMBIN TIME/INR 2021-05-05 04:14:00 [facility] SARS-COV2/RT-PCR ([facility] & 2021-05-05 00:18:[address] [facility] REF LABS) [facility] BLOOD GAS, VENOUS 2021-05-05 00:14:00 Roxie [facility] KETONE, BLOOD 2021-05-05 00:14:[address] [facility] HIGH SENSITIVITY TROPONIN 2021-05-05 00:14:00 [facility]ie [facility] ED ECG INTERPRETATION 2021-05-04 23:15:17 Roxie [facility] BASIC METABOLIC PANEL (7) 2021-05-04 21:30:00 Ga Faustinco Shelly [facility] HEPATIC FUNCTION PANEL 2021-05-04 21:30:00 Roxie [facility] AMYLASE 2021-05-04 21:30:[address] [facility] LIPASE 2021-05-04 21:30:00 [facility] CBC W/PLT COUNT & AUTO 2021-05-04 19:37:00 [facility] ECG 12-LEAD 2021-05-04 19:22:33 Unknown, Hl7 [facility] POCT-GLUCOSE METER 2021-03-11 08:21:00 Jessica [facility] COMPREHENSIVE METABOLIC 2021-03-11 06:09:00 Clive [facility] REPORT OF PROCEDURE - 2021-03-10 23:43:51 [facility] POCT-GLUCOSE METER 2021-03-10 16:43:00 Jessica [facility] POCT-GLUCOSE METER 2021-03-10 12:45:00 [facility] [place] ERCP 2021-03-10 12:02:00 Desiree Duggan [facility] ERCP,PAPILLOTOMY 2021-03-10 11:31:00 [facility] PROCEDURE W/ C-ARM 2021-03-10 11:31:[address] [facility] ERCP,BALLOON SWEEPING 2021-03-10 11:31:00 OthmAllen araujo [facility] Otan [facility] POCT-GLUCOSE METER 2021-03-10 09:07:00 [facility] CBC (HEMOGRAM ONLY) 2021-03-10 04:50:00 [facility] COMPREHENSIVE METABOLIC 2021-03-10 04:50:00 [facility] PANEL Center HEMOGLOBIN A1C 2021-03-10 04:50:00 [facility] POCT-GLUCOSE METER 2021-03-09 23:54:00 [facility] SARS-COV2/RT-PCR ([facility] & 2021-03-09 20:13:00 Desiree Duggan [facility] REF LABS) Center POCT-GLUCOSE METER 2021-03-09 17:22:00 [facility] MR ABDOMEN WITHOUT IV 2021-03-09 15:38:00 [facility] CONTRAST MRCP Center POCT-GLUCOSE METER 2021-03-09 12:22:00 [facility] URINALYSIS W/ REFLEX 2021-03-09 10:56:00 [facility] URINE CULTURE Center HEPATIC FUNCTION PANEL 2021-03-09 05:25:00 [facility] PROTHROMBIN TIME/INR 2021-03-09 05:25:00 [facility] MAGNESIUM 2021-03-09 05:25:00 [facility] BASIC METABOLIC PANEL (7) 2021-03-09 05:25:00 [facility] CBC W/PLT COUNT & AUTO 2021-03-09 05:25:00 [facility] DIFFERENTIAL Center HEMOGLOBIN A1C 2021-03-09 05:25:00 [facility] MRI Brain wo contrast 2018-02-08 00:00:00 [place] [id number] MRI Brain w/wo contrast 2018-02-01 00:00:[id number] [...] Ce nter VACCINE (#1)] Future Scheduled 2021-09-12 [facility] RISK SCREENING [facility] [...] [facility] Center DEPRESSION SCREENING (12+)] Future Scheduled 2021-09-[address] [facility] 00:00:00 measurement (procedure) [facility] [code = [id number]] Future Scheduled 2021-09-[address] [facility] 00:00:00 measurement (procedure) [facility] [code = 67640807] Future Scheduled 2021-09-[address] [facility] 00:00:00 measurement (procedure) [facility] [code = 21262052] Future Scheduled 2021-09-[address] [facility] 00:00:00 [facility] (procedure[facility] [code = 34324728] Future Scheduled 2021-09-[address] [facility] 00:00:00 [facility] (procedure[facility] [code = 02859757] Future Scheduled 2021-09-[address] [facility] 00:00:00 [facility] (procedure) [facility] [code = 30848072] Future Scheduled 2021-09-[address] [facility] 00:00:00 measurement (procedure) [facility] [code = 19458646] Future Scheduled 2021-09-[address] [facility] 00:00:00 measurement (procedure) [facility] [code = 09573836] Future Scheduled 2021-09-[address] [facility] 00:00:00 measurement (procedure) [facility] [code = 21626485] Future Scheduled 2021-09-[address] [facility] 00:00:00 measurement (procedure) [facility] [code = 70397556] Future Scheduled 2021-09-[address] [facility] 00:00:00 measurement (procedure) [facility] [code = 34496160] Future Scheduled 2021-09-[address] [facility] 00:00:00 measurement (procedure) [facility] [code = 68207612] Future Scheduled 2021-09-[address] [facility] 00:00:00 measurement (procedure) [facility] [code = 63891583] Future Scheduled 2021-09-[address] [facility] 00:00:00 measurement (procedure) [facility] [code = 79673179] Future Scheduled 2021-09-[address] [facility] 00:00:00 measurement (procedure) [facility] [code = 46925546] Future Scheduled 2021-05-13 INFLUENZA VACCINE (#1) [facility] - [id number]_[facility]ualqwq [facility] PCV13) [code = PNEUMOCOCCAL 65+ YRS (1 of 1 - [id number]_Bmoxlaa PCV13)] Future Scheduled 2013 PNEUMOCOCCAL 65+ YRS ([address] [facility] 00:00:00 of 1 - [id number]_Owaropf [facility]ica [facility] PCV13) [code = PNEUMOCOCCAL 65+ YRS (1 of 1 - [id number]_Eebehee PCV13)] Future Scheduled 2013 PNEUMOCOCCAL 65+ YRS ([address] [facility] 00:00:00 of 1 - [id number]_Dbkxenu [facility]ica [facility] Center PCV13) [code = PNEUMOCOCCAL 65+ YRS (1 of 1 - BRRF07_Lbujkov PCV13)] Future Scheduled 2013 PNEUMOCOCCAL 65+ YRS ([address] [facility] 00:00:00 of 1 - [id number]_Gahwkdt [facility]ica l Center PCV13) [code = PNEUMOCOCCAL 65+ YRS (1 of 1 - KELR33_Hjenlpp PCV13)] Future Scheduled 2013 PNEUMOCOCCAL 65+ YRS [...] 00:00:00 examination Medical Center (regime/therapy) [code = 701423154] Future Scheduled 1958 Urine screening for [facility] 00:00:00 protein (procedure) Medical Center [code = 534064408] Future Scheduled 1958 DIABETIC EYE EXAM [code [facility] 00:00:00 = DIABETIC EYE EXAM] Medical Center Future Scheduled [address] [facility] 00:[facility]:00 examination Medical Center (regime/therapy) [code = 533282962] Future Scheduled 1958 Urine screening for [facility] 00:00:00 protein (procedure) Medical Center [code = 176121393] Future Scheduled 1958 DIABETIC EYE EXAM [code [facility] 00:00:00 = DIABETIC EYE EXAM] Medical Center Future Scheduled [address] [facility] 00:00:00 examination Medical Center (regime/therapy) [code = 937269415] Future Scheduled 1958 Urine screening for [facility] 00:00:00 protein (procedure) Medical Center [code = 265624856] Future Scheduled 1958 DIABETIC EYE EXAM [code [facility] 00:00:00 = DIABETIC EYE EXAM] Medical Center Future Scheduled [address] [facility] 00:00:00 examination Medical Center (regime/therapy) [code = 826715274] Future Scheduled 1958 Urine screening for [facility] 00:00:00 protein (procedure) Medical Center [code = 056496432] Future Scheduled 1958 DIABETIC EYE EXAM [code [facility] 00:00:00 = DIABETIC EYE EXAM] Medical Center Future Scheduled [address] [facility] 00:00:00 examination Medical Center (regime/therapy) [code = 202943385] Future Scheduled 1958 Urine screening for [facility] 00:00:00 protein (procedure) Medical Center [code = 425895481] Future Scheduled 1958 DIABETIC EYE EXAM [code [facility] 00:00:00 = DIABETIC EYE EXAM] Medical Center Future Scheduled [address] [facility] 00:00:00 examination Medical Center (regime/therapy) [code = 794170732] Future Scheduled 1958 Urine screening for [facility] 00:00:00 protein (procedure) Medical Center [code = 568487256] Future Scheduled 1958 DIABETIC EYE EXAM [code [facility] 00:00:00 = DIABETIC EYE EXAM] Medical Center Future Scheduled [address] [facility] 00:00:00 examination Medical Center (regime/therapy) [code = 538585071] Future Scheduled 1958 Urine screening for [facility] 00:00:00 protein (procedure) Medical Center [code = 548188182] Future Scheduled 1958 DIABETIC EYE EXAM [code [facility] 00:00:00 = DIABETIC EYE EXAM] Medical Center Future Scheduled [address] [facility] 00:00:00 examination Medical Center (regime/therapy) [code = 232657467] Future Scheduled 1958 Urine screening for [facility] 00:00:00 protein (procedure) Medical Center [code = 620929550] Future Scheduled 1958 DIABETIC EYE EXAM [code [facility] 00:00:00 = DIABETIC EYE EXAM] Medical Center Future Scheduled [address] [facility] 00:00:00 examination Medical Center (regime/therapy) [code = 401481481] Future Scheduled 1958 Urine screening for [facility] 00:00:00 protein (procedure) Medical Center [code = 379083076] Future Scheduled 1958 DIABETIC EYE EXAM [code [facility] 00:00:00 = DIABETIC EYE EXAM] Medical Center Future Scheduled [address] [facility] 00:00:00 examination Medical Center (regime/therapy) [code = 301954186] Future Scheduled 1958 Urine screening for [facility] 00:00:00 protein (procedure) Medical Center [code = 889757984] Future Scheduled 1958 DIABETIC EYE EXAM [code [facility] 00:00:00 = DIABETIC EYE EXAM] Medical Center Future Scheduled [address] [facility] 00:00:00 examination Medical Center (regime/therapy) [code = 872795855] Future Scheduled 1958 Urine screening for [facility] 00:00:00 protein (procedure) Medical Center [code = 410935125] Future Scheduled 1958 DIABETIC EYE EXAM [code [facility] 00:00:00 = DIABETIC EYE EXAM] Medical Center Future Scheduled [address] [facility] 00:00:00 examination Medical Center (regime/therapy) [code = 187208762] Future Scheduled 1958 Urine screening for [facility] 00:00:00 protein (procedure) Medical Center [code = 941510562] Future Scheduled 1958 DIABETIC EYE EXAM [code [facility] 00:00:00 = DIABETIC EYE EXAM] Medical Center Future Scheduled [address] [facility] 00:00:00 examination Medical Center (regime/therapy) [code = 446876800] Future Scheduled 1958 Urine screening for [facility] 00:00:00 protein (procedure) Medical Center [code = 753258758] Future Scheduled 1958 DIABETIC EYE EXAM [code [facility] 00:00:00 = DIABETIC EYE EXAM] Medical Center Future Scheduled [address] [facility] 00:00:00 examination Medical Center (regime/therapy) [code = 612141466] Future Scheduled 1958 Urine screening for [facility] 00:00:00 protein (procedure) Medical Center [code = 998827783] Future Scheduled 1958 DIABETIC EYE EXAM [code [facility] 00:00:00 = DIABETIC EYE EXAM] Medical Center Future Scheduled [address] [facility] 00:00:00 examination Medical Center (regime/therapy) [code = 464941778] Future Scheduled 1958 Urine screening for [facility] 00:00:00 protein (procedure) Medical Center [code = 957494922] Future Scheduled 1954 PNEUMOCOCCAL 65+ YRS (1 [...] breast Medical C enter (procedure) [code = 435804118] Future Scheduled 1948 Screening for malignant [facility] 00:00:00 neoplasm of colon Medical Ce nter (procedure) [code = 056550759] Future Scheduled 1948 Screening for malignant [facility] 00:00:00 neoplasm of breast Medical C enter (procedure) [code = 076719337] Future Scheduled 1948 Screening for malignant [facility] 00:00:00 neoplasm of colon Medical Ce nter (procedure) [code = 019571330] Future Scheduled 1948 Screening for malignant [facility] 00:00:00 neoplasm of breast Medical C enter (procedure) [code = 904804559] Future Scheduled 1948 Screening for malignant [facility] 00:00:00 neoplasm of colon Medical Ce nter (procedure) [code = 029097989] Future Scheduled 1948 Screening for malignant [facility] 00:00:00 neoplasm of breast Medical C enter (procedure) [code = 150033317] Future Scheduled 1948 Screening for malignant [facility] 00:00:00 neoplasm of colon Medical Ce nter (procedure) [code = 560739283] Future Scheduled 1948 Screening for malignant [facility] 00:00:00 neoplasm of breast Medical C enter (procedure) [code = 786575775] Future Scheduled 1948 CT Colonography (combo) [facility] 00:00:00 [code = CT Colonography [facility] (combo)] Future Scheduled 1948 Screening for malignant [facility] 00:00:00 neoplasm of colon Medical Ce nter (procedure) [code = 575959507] Future Scheduled 1948 Screening for malignant [facility] 00:00:00 neoplasm of colon Medical Ce nter (procedure) [code = 631448107] Future Scheduled 1948 DXA SCAN [code = DXA [facility] 00:00:00 SCAN] [facility] Future Scheduled 1948 Screening for malignant [facility] 00:00:00 neoplasm of colon Medical Ce nter (procedure) [code = 666839636] Future Scheduled 1948 Screening for malignant [facility] 00:00:00 neoplasm of colon Medical Ce nter (procedure) [code = 158695360] Future Scheduled 1948 Sigmoidoscopy [facility] Scre[facility] for malignant [facility] 00:00:00 neoplasm of breast Medical C enter (procedure) [code = 115206456] Future Scheduled 1948 CT Colonography (combo) [facility] 00:00:00 [code = CT Colonography [facility] (combo)] Future Scheduled 1948 Screening for malignant [facility] 00:00:00 neoplasm of colon Medical Ce nter (procedure) [code = 762888924] Future Scheduled 1948 Screening for malignant [facility] 00:00:00 neoplasm of colon Medical Ce nter (procedure) [code = 268927341] Future Scheduled 1948 DXA SCAN [code = DXA [facility] 00:00:00 SCAN] [facility] Future Scheduled 1948 Screening for malignant [facility] 00:00:00 neoplasm of colon Medical Ce nter (procedure) [code = 613768514] Future Scheduled 1948 Screening for malignant [facility] 00:00:00 neoplasm of colon Medical Ce nter (procedure) [code = 806543758] Future Scheduled 1948 Sigmoidoscopy [code = [facility] Sched[facility] 1948 Screening for malignant [facility] 00:00:00 neoplasm of breast Medical C enter (procedure) [code = 833082139] Future Scheduled 1948 CT Colonography (combo) [facility] 00:00:00 [code = CT Colonography [facility] (combo)] Future Scheduled 1948 Screening for malignant [facility] 00:00:00 neoplasm of colon Medical Ce nter (procedure) [code = 868372750] Future Scheduled 1948 Screening for malignant [facility] 00:00:00 neoplasm of colon Medical Ce nter (procedure) [code = 330237698] Future Scheduled 1948 DXA SCAN [code = DXA [facility] 00:00:00 SCAN] [facility] Future Scheduled 1948 Screening for malignant [facility] 00:00:00 neoplasm of colon Medical Ce nter (procedure) [code = 357094362] Future Scheduled 1948 Screening for malignant [facility] 00:00:00 neoplasm of colon Medical Ce nter (procedure) [code = 046125548] Future Scheduled 1948 Sigmoidoscopy [code = [facility] S[facility]] [facility] Future Scheduled 1948 Screening for malignant [facility] 00:00:00 neoplasm of breast Medical C enter (procedure) [code = 891679564] Future Scheduled 1948 CT Colonography (combo) [facility] 00:00:00 [code = CT Colonography [facility] (combo)] Future Scheduled 1948 Screening for malignant [facility] 00:00:00 neoplasm of colon Medical Ce nter (procedure) [code = 799417309] Future Scheduled 1948 Screening for malignant [facility] 00:00:00 neoplasm of colon Medical Ce nter (procedure) [code = 700000972] Future Scheduled 1948 DXA SCAN [code = DXA [facility] 00:00:00 SCAN] [facility] Future Scheduled 1948 Screening for malignant [facility] 00:00:00 neoplasm of colon Medical Ce nter (procedure) [code = 535277987] Future Scheduled 1948 Screening for malignant [facility] 00:00:00 neoplasm of colon Medical Ce nter (procedure) [code = 326407848] Future Scheduled 1948 Sigmoidoscopy [code [facility]] [facility] Future Scheduled 1948 Screening for malignant [facility] 00:00:00 neoplasm of breast Medical C enter (procedure) [code = 854733469] Future Scheduled 1948 CT Colonography (combo) [facility] 00:00:00 [code = CT Colonography [facility] (combo)] Future Scheduled 1948 Screening for malignant [facility] 00:00:00 neoplasm of colon Medical Ce nter (procedure) [code = 108485591] Future Scheduled 1948 Screening for malignant [facility] 00:00:00 neoplasm of colon Medical Ce nter (procedure) [code = 688989716] Future Scheduled 1948 DXA SCAN [code = DXA [facility] 00:00:00 SCAN] [facility] Future Scheduled 1948 Screening for malignant [facility] 00:00:00 neoplasm of colon Medical Ce nter (procedure) [code = 848146079] Future Scheduled 1948 Screening for malignant [facility] 00:00:00 neoplasm of colon Medical Ce nter (procedure) [code = 278804255] Future Scheduled 1948 Sigmoidoscopy [code = [facility] 00:[facility] S[facility]] [facility] Future Scheduled 1948 Screening for malignant [facility] 00:00:00 neoplasm of breast Medical C enter (procedure) [code = 195420607] Future Scheduled 1948 CT Colonography (combo) [facility] 00:00:00 [code = CT Colonography [facility] (combo)] Future Scheduled 1948 Screening for malignant [facility] 00:00:00 neoplasm of colon Medical Ce nter (procedure) [code = 610317898] Future Scheduled 1948 Screening for malignant [facility] 00:00:00 neoplasm of colon Medical Ce nter (procedure) [code = 418220901] Future Scheduled 1948 DXA SCAN [code = DXA [facility] 00:00:00 SCAN] [facility] Future Scheduled 1948 Screening for malignant [facility] 00:00:00 neoplasm of colon Medical Ce nter (procedure) [code = 246323262] Future Scheduled 1948 Screening for malignant [facility] 00:00:00 neoplasm of colon Medical Ce nter (procedure) [code = 068553368] Future Scheduled 1948 Sigmoidoscopy [code = [facility] 1948 Screening for malignant [facility] 00:00:00 neoplasm of breast Medical C enter (procedure) [code = 443709315] Future Scheduled 1948 CT Colonography (combo) [facility] 00:00:00 [code = CT Colonography [facility] (combo)] Future Scheduled 1948 Screening for malignant [facility] 00:00:00 neoplasm of colon Medical Ce nter (procedure) [code = 092996850] Future Scheduled 1948 Screening for malignant [facility] 00:00:00 neoplasm of colon Medical Ce nter (procedure) [code = 831872434] Future Scheduled 1948 DXA SCAN [code = DXA [facility] 00:00:00 SCAN] [facility] Future Scheduled 1948 Screening for malignant [facility] 00:00:00 neoplasm of colon Medical Ce nter (procedure) [code = 478713260] Future Scheduled 1948 Screening for malignant [facility] 00:00:00 neoplasm of colon Medical Ce nter (procedure) [code = 913217951] Future Scheduled 1948 Sigmoidoscopy [code = [facility] 00:[facility]] [facility] Future Scheduled 1948 Screening for malignant [facility] 00:00:00 neoplasm of breast Medical C enter (procedure) [code = 693135172] Future Scheduled 1948 CT Colonography (combo) [facility] 00:00:00 [code = CT Colonography [facility] (combo)] Future Scheduled 1948 Screening for malignant [facility] 00:00:00 neoplasm of colon Medical Ce nter (procedure) [code = 529691976] Future Scheduled 1948 Screening for malignant [facility] 00:00:00 neoplasm of colon Medical Ce nter (procedure) [code = 863802441] Future Scheduled 1948 DXA SCAN [code = DXA [facility] 00:00:00 SCAN] [facility] Future Scheduled 1948 Screening for malignant [facility] 00:00:00 neoplasm of colon Medical Ce nter (procedure) [code = 789369959] Future Scheduled 1948 Screening for malignant [facility] 00:00:00 neoplasm of colon Medical Ce nter (procedure) [code = 269021619] Future Scheduled 1948 Sigmoidoscopy [code = [facility] 00:[facility] Sigmoidoscopy] [facility] Future Scheduled 1948 Screening for malignant [facility] 00:00:00 neoplasm of breast Medical C enter (procedure) [code = 869981918] Future Scheduled 1948 CT Colonography (combo) [facility] 00:00:00 [code = CT Colonography [facility] (combo)] Future Scheduled 1948 Screening for malignant [facility] 00:00:00 neoplasm of colon Medical Ce nter (procedure) [code = 462987165] Future Scheduled 1948 Screening for malignant [facility] 00:00:00 neoplasm of colon Medical Ce nter (procedure) [code = 041579160] Future Scheduled 1948 DXA SCAN [code = DXA [facility] 00:00:00 SCAN] [facility] Future Scheduled 1948 Screening for malignant [facility] 00:00:00 neoplasm of colon Medical Ce nter (procedure) [code = 641422662] Future Scheduled 1948 Screening for malignant [facility] 00:00:00 neoplasm of colon Medical Ce nter (procedure) [code = 586997346] Future Scheduled 1948 Sigmoidoscopy [facility] 00:00:00 Sigmoidoscopy] [facility] Future Scheduled 1948 Screening for malignant [facility] Test 00:00:00 neoplasm of breast Medical C enter (procedure) [code = 562059294] Future Scheduled 1948 CT Colonography (combo) [facility] Test 00:00:00 [code = CT Colonography [facility] (combo)] Future Scheduled 1948 Screening for malignant [facility] Test 00:00:00 neoplasm of colon Medical Ce nter (procedure) [code = 108286151] Future Scheduled 1948 Screening for malignant [facility] Test 00:00:00 neoplasm of colon Medical Ce nter (procedure) [code = 479878744] Future Scheduled 1948 DXA SCAN [code = DXA [facility] Test 00:00:00 SCAN] [facility] Future Scheduled 1948 Screening for malignant [facility] Test 00:00:00 neoplasm of colon Medical Ce nter (procedure) [code = 216919857] Future Scheduled 1948 Screening for malignant [facility] Test 00:00:00 neoplasm of colon Medical Ce nter (procedure) [code = 558130309] Future Scheduled 1948 Sigmoidoscopy [code = [facility]] [facility] Future Scheduled 1948 Screening for malignant [facility] Test 00:00:00 neoplasm of colon Medical Ce nter (procedure) [code = 567602708] Future Scheduled 1948 Screening for malignant [facility] Test 00:00:00 neoplasm of breast Medical C enter (procedure) [code = 924718689] Future Scheduled 1948 CT Colonography (combo) [facility] Test 00:00:00 [code = CT Colonography [facility] (combo)] Future Scheduled 1948 Screening for malignant [facility] Test 00:00:00 neoplasm of colon Medical Ce nter (procedure) [code = 593496157] Future Scheduled 1948 Screening for malignant [facility] Test 00:00:00 neoplasm of colon Medical Ce nter (procedure) [code = 130732423] Future Scheduled 1948 Sigmoidoscopy [code = [facility] 1948 Screening for malignant [facility] Test 00:00:00 neoplasm of breast Medical C enter (procedure) [code = 201721630] Future Scheduled 1948 CT Colonography (combo) [facility] Test 00:00:00 [code = CT Colonography [facility] (combo)] Future Scheduled 1948 Screening for malignant [facility] Test 00:00:00 neoplasm of colon Medical Ce nter (procedure) [code = 503506280] Future Scheduled 1948 DXA SCAN [code = DXA [facility] Test 00:00:00 SCAN] [facility] Future Scheduled 1948 Screening for malignant [facility] Test 00:00:00 neoplasm of colon Medical Ce nter (procedure) [code = 785572983] Future Scheduled 1948 DXA SCAN [code = DXA [facility] 00:00:00 SCAN] [facility] Future Scheduled 1948 Screening for malignant [facility] Test 00:00:00 neoplasm of colon Medical Ce nter (procedure) [code = 973458983] Future Scheduled 1948 Screening for malignant [facility] Test 00:00:00 neoplasm of colon Medical Ce nter (procedure) [code = 871981641] Future Scheduled 1948 Screening for malignant [facility] Test 00:00:00 neoplasm of colon Medical Ce nter (procedure) [code = 920993430] Future Scheduled 1948 Sigmoidoscopy [code = [facility]] [facility] Future Scheduled 1948 Screening for malignant [facility] Test 00:00:00 neoplasm of colon Medical Ce nter (procedure) [code = 028757870] Future Scheduled 1948 Screening for malignant [facility] Test 00:00:00 neoplasm of breast Medical C enter (procedure) [code = 998355191] Future Scheduled 1948 CT Colonography (combo) [facility] Test 00:00:00 [code = CT Colonography [facility] (combo)] Future Scheduled 1948 Screening for malignant [facility] 00:00:00 neoplasm of colon Medical Ce nter (procedure) [code = 287720131] Future Scheduled 1948 Screening for malignant [facility] 00:00:00 neoplasm of colon Medical Ce nter (procedure) [code = 764134121] Future Scheduled 1948 Sigmoidoscopy [code = [facility] Scheduled 1948 DXA SCAN [code = DXA [facility] 00:00:00 SCAN] [facility] Future Scheduled 1948 Screening for malignant [facility] 00:00:00 neoplasm of colon Medical Ce nter (procedure) [code = 725488436] Future Scheduled 1948 Screening for malignant [facility] 00:00:00 neoplasm of colon Medical Ce nter (procedure) [code = 247414884] Future Scheduled 1948 Sigmoidoscopy [code = [facility] 00:[facility] S[facility]oidoscopy] [facility] Future Scheduled 1948 Screening for malignant [facility] Test 00:00:00 neoplasm of breast Medical C enter (procedure) [code = 335617969] Future Scheduled 1948 CT Colonography (combo) [facility] Test 00:00:00 [code = CT Colonography [facility] (combo)] Future Scheduled 1948 Screening for malignant [facility] 00:00:00 neoplasm of colon Medical Ce nter (procedure) [code = 834126767] Future Scheduled 1948 Screening for malignant [facility] 00:00:00 neoplasm of colon Medical Ce nter (procedure) [code = 090343866] Future Scheduled 1948 DXA SCAN [code = DXA [facility] 00:00:00 SCAN] [facility] Future Scheduled 1948 Screening for malignant [facility] 00:00:00 neoplasm of colon Medical Ce nter (procedure) [code = 217243620] Future Scheduled 1948 Screening for malignant [facility] 00:00:00 neoplasm of colon Medical Ce nter (procedure) [code = 947211222] Future Scheduled 1948 Sigmoidoscopy [code = [facility] 00:[facility] S[facility]oidoscopy] [facility] Future Scheduled 1948 Screening for malignant [facility] Test 00:00:00 neoplasm of breast Medical C enter (procedure) [code = 786280319] Future Scheduled 1948 CT Colonography (combo) [facility] Test 00:00:00 [code = CT Colonography [facility] (combo)] Future Scheduled 1948 Screening for malignant [facility] 00:00:00 neoplasm of colon Medical Ce nter (procedure) [code = 770859243] Future Scheduled 1948 Screening for malignant [facility] 00:00:00 neoplasm of colon Medical Ce nter (procedure) [code = 318862855] Future Scheduled 1948 DXA SCAN [code = DXA [facility] 00:00:00 SCAN] [facility] Future Scheduled 1948 Screening for malignant [facility] 00:00:00 neoplasm of colon Medical Ce nter (procedure) [code = 760414539] Future Scheduled 1948 Screening for malignant [facility] 00:00:00 neoplasm of colon Medical Ce nter (procedure) [code = 151242454] Future Scheduled 1948 Sigmoidoscopy [code = [facility] 00:[facility] S[facility]oidoscopy] [facility] Future Scheduled 1948 Screening for malignant [facility] Test 00:00:00 neoplasm of breast Medical C enter (procedure) [code = 343485883] Future Scheduled 1948 CT Colonography (combo) [facility] Test 00:00:00 [code = CT Colonography [facility] (combo)] Future Scheduled 1948 Screening for malignant [facility] 00:00:00 neoplasm of colon Medical Ce nter (procedure) [code = 349271497] Future Scheduled 1948 Screening for malignant [facility] 00:00:00 neoplasm of colon Medical Ce nter (procedure) [code = 784099911] Future Scheduled 1948 DXA SCAN [code = DXA [facility] 00:00:00 SCAN] [facility] Future Scheduled 1948 Screening for malignant [facility] 00:00:00 neoplasm of colon Medical Ce nter (procedure) [code = 099332937] Future Scheduled 1948 Screening for malignant [facility] 00:00:00 neoplasm of colon Medical Ce nter (procedure) [code = 110773780] Future Scheduled 1948 Sigmoidoscopy [code = [facility] 00:[facility] Sigmoidoscopy] [facility] Future Scheduled 1948 Screening for malignant [facility] 00:00:00 neoplasm of breast Medical C enter (procedure) [code = 820791428] Future Scheduled 1948 CT Colonography (combo) [facility] 00:00:00 [code = CT Colonography [facility] (combo)] Future Scheduled 1948 Screening for malignant [facility] 00:00:00 neoplasm of colon Medical Ce nter (procedure) [code = 990181193] Future Scheduled 1948 Screening for malignant [facility] 00:00:00 neoplasm of colon Medical Ce nter (procedure) [code = 325163164] Future Scheduled 1948 DXA SCAN [code = DXA [facility] 00:00:00 SCAN] [facility] Future Scheduled 1948 Screening for malignant [facility] 00:00:00 neoplasm of colon Medical Ce nter (procedure) [code = 435775578] Future Scheduled 1948 Screening for malignant [facility] 00:00:00 neoplasm of colon Medical Ce nter (procedure) [code = 015026672] Future Scheduled 1948 Sigmoidoscopy [facility]code = [facility] Scre[facility] for malignant [facility] 00:00:00 neoplasm of breast Medical C enter (procedure) [code = 346720205] Future Scheduled 1948 CT Colonography (combo) [facility] 00:00:00 [code = CT Colonography [facility] (combo)] Future Scheduled 1948 Screening for malignant [facility] 00:00:00 neoplasm of colon Medical Ce nter (procedure) [code = 532746880] Future Scheduled 1948 Screening for malignant [facility] 00:00:00 neoplasm of colon Medical Ce nter (procedure) [code = 715804184] Future Scheduled 1948 Screening for malignant [facility] 00:00:00 neoplasm of breast Medical C enter (procedure) [code = 849574711] Future Scheduled 1948 DXA SCAN [code = DXA [facility] 00:00:00 SCAN] [facility] Future Scheduled 1948 Screening for malignant [facility] 00:00:00 neoplasm of colon Medical Ce nter (procedure) [code = 296381885] Future Scheduled 1948 Screening for malignant [facility] 00:00:00 neoplasm of colon Medical Ce nter (procedure) [code = 468626811] Future Scheduled 1948 Sigmoidoscopy [code = [facility] 00:[facility] S[facility]oidoscopy] [facility] Future Scheduled 1948 CT Colonography (combo) [facility] 00:00:00 [code = CT Colonography [facility] (combo)] Future Scheduled 1948 Screening for malignant [facility] 00:00:00 neoplasm of breast Medical C enter (procedure) [code = 026069513] Future Scheduled 1948 CT Colonography (combo) [facility] 00:00:00 [code = CT Colonography [facility] (combo)] Future Scheduled 1948 Screening for malignant [facility] 00:00:00 neoplasm of colon Medical Ce nter (procedure) [code = 543952109] Future Scheduled 1948 Screening for malignant [facility] 00:00:00 neoplasm of colon Medical Ce nter (procedure) [code = 364983706] Future Scheduled 1948 DXA SCAN [code = DXA [facility] 00:00:00 SCAN] [facility] Future Scheduled 1948 Screening for malignant [facility] 00:00:00 neoplasm of colon Medical Ce nter (procedure) [code = 839288538] Future Scheduled 1948 Screening for malignant [facility] 00:00:00 neoplasm of colon Medical Ce nter (procedure) [code = 903295958] Future Scheduled 1948 Screening for malignant [facility] 00:00:00 neoplasm of colon Medical Ce nter (procedure) [code = 617090296] Future Scheduled 1948 Sigmoidoscopy [code = [facility] 00:[facility] Sigmoidoscopy] [facility] Future Scheduled 1948 Screening for malignant [facility] 00:00:00 neoplasm of colon Medical Ce nter (procedure) [code = 339535011] Future Scheduled 1948 Screening for malignant [facility] 00:00:00 neoplasm of breast Medical C enter (procedure) [code = 613616343] Future Scheduled 1948 CT Colonography (combo) [facility] 00:00:00 [code = CT Colonography [facility] (combo)] Future Scheduled 1948 Screening for malignant [facility] 00:00:00 neoplasm of colon Medical Ce nter (procedure) [code = 553152723] Future Scheduled 1948 Screening for malignant [facility] 00:00:00 neoplasm of colon Medical Ce nter (procedure) [code = 447179463] Future Scheduled 1948 DXA SCAN [code = DXA [facility] 00:00:00 SCAN] [facility] Future Scheduled 1948 Screening for malignant [facility] 00:00:00 neoplasm of colon Medical Ce nter (procedure) [code = 090469059] Future Scheduled 1948 Screening for malignant [facility] 00:00:00 neoplasm of colon Medical Ce nter (procedure) [code = 090260978] Future Scheduled 1948 Sigmoidoscopy [code = [facility] 00:[facility] Sigmoidoscopy] [facility] Future Scheduled 1948 DXA SCAN [code = DXA [facility] 00:00:00 SCAN] [facility] Future Scheduled 1948 Screening for malignant [facility] 00:00:00 neoplasm of breast Medical C enter (procedure) [code = 244468529] Future Scheduled 1948 CT Colonography (combo) [facility] 00:00:00 [code = CT Colonography [facility] (combo)] Future Scheduled 1948 Screening for malignant [facility] 00:00:00 neoplasm of colon Medical Ce nter (procedure) [code = 876170432] Future Scheduled 1948 Screening for malignant [facility] 00:00:00 neoplasm of colon Medical Ce nter (procedure) [code = 859567731] Future Scheduled 1948 Screening for malignant [facility] 00:00:00 neoplasm of colon Medical Ce nter (procedure) [code = 533314520] Future Scheduled 1948 DXA SCAN [code = DXA [facility] 00:00:00 SCAN] [facility] Future Scheduled 1948 Screening for malignant [facility] 00:00:00 neoplasm of colon Medical Ce nter (procedure) [code = 727883448] Future Scheduled 1948 Screening for malignant [facility] 00:00:00 neoplasm of colon Medical Ce nter (procedure) [code = 228550406] Future Scheduled 1948 S[facility]oidoscopy [code = [facility] En[facility]ters Start End Encounter Admission Attending Care Care Encounter Source Date/Time Date/Time Type Type Clinicians Facility Department ID 2022-04-06 [facility] [id number] [facility] 16:46:00 Encounter Jessica platt [facility] 2021-06-21 Inpatient ER ADIO, [facility] [id number] [facility] 02:39:12 [place] 2023-04-25 2023-04-25 Outpatient R MALOU MAHAN [facility] [id number] [facility] 10:00:00 10:00:[address] [facility] 2023-04-22 2023-04-22 Outpatient R MALOU MAHAN [facility] [id number] [facility] 13:00:00 13:00:[address] [facility] 2023-04-22 2023-04-22 Telephone Vickie [facility] 1.2.840.114 [id number] Univers 00:00:00 00:00:00 Lucy DONATO 350.1.13.10 ity of [place].2.[place] [facility] [phone] Ia dical [address] 2023-04-21 2023-04-21 Emergency X TIFFANY [facility] ERT [id number] Univers 16:46:00 22:47:[address] [facility] 2023-04-21 2023-04-21 Emergency Kelle Aguirre [facility] 1.2.8 40.114 [id number] Univers 16:46:00 22:47:00 Spike Arellano 350.1.13.10 ity of [place] 4[place] [phone] [facility] [address] [place] 2023-03-02 2023-03-02 Orders Doctor HEAVEN 1.2.840.114 [id number] Univers 00:00:00 00:00:00 Only Unassigned, ARIS 350.1.13.10 ity of [place] [facility] 4.2.7.2.686 Arnie as [phone] [facility] [address] [place] 2023-01-05 2023-01-05 Orders Doctor HEAVEN 1.2.840.114 [id number] Univers 00:00:00 00:00:00 Only Unassigned, ARIS 350.1.13.10 ity of [place] [facility] 4.2.7.2.686 Arnie as [phone] [address] 2022-10-27 2022-10-27 Outpatient R MAIRA [facility] [id number] Univers 14:45:00 14:45:[address] [facility] 2022-10-21 2022-10-21 Outpatient R MAIRA [facility] [id number] Univers 09:45:00 10:16:[address] [facility] 2022-10-21 2022-10-21 Office Maira [facility] 1.2.958.095 [id number] Univers 09:45:00 10:16:42 Visit Baldomero ANGLIN 350.1.13.10 it y of [place] 4.2.7.2.686 Arnie as DERIK?BLEA [id number] Ia jermaine JOHNSON 198 [facility] OFFICE [facility] 2022-10-13 2022-10-13 Outpatient R MAIRA [facility] [id number] Univers 15:30:00 15:30:[address] [facility] 2022-10-11 2022-10-11 [facility] 1.2.840.114 [id number] Univers 00:00:00 00:00:00 Baldomero ANGLIN 350.1.13.10 it y of [place] 4.2.7.2.686 Arnie as DERIK?BLEA [phone] Ia jermaine JOHNSON 198 [facility] OFFICE [facility] 2022-10-08 2022-10-08 [facility] 1.2.840.114 [id number] Univers 00:00:00 00:00:00 Baldomero ANGLIN 350.1.13.10 it y of [place] 4.2.7.2.686 Arnie as DERIK?BLEA [phone] Ia jermaine JOHNSON 198 [facility] 2022-10-06 2022-10-06 [facility]phone [facility] 1.2.840.114 10 [id number] Univers 00:00:00 00:00:00 Baldomero ANGLIN 350.1.13.10 it y of [place] 4.2.7.2.686 Arnie as DERIK?BLEA [phone] Ia jermaine JOHNSON 198 [facility] OFFICE [facility] 2022-10-04 2022-10-04 Shell Work[facility] Lab, Ang - Db [facility] 1.2.840.1 14 [id number] Univers 15:15:00 15:30:00 Visit Baldomero Rao 350.1.13.10 ity of [place] 4.2.7.2.686 Arnie as DERIK?BLEA [id number] Ia jermaine JOHNSON 353 [facility] OFFICE [facility] 2022-10-04 2022-10-04 Outpatient R MAIRA [facility] [id number] Univers 14:30:00 15:22:10 BALDOMERO ity of [facility] 2022-10-04 2022-10-04 Office [facility] 1.2.968.373 [id number] Univers 14:30:00 15:22:10 Visit Baldomero ANGLIN 350.1.13.10 it y of [place] 4.2.7.2.686 Arnie as DERIK?BLEA [phone] Ia jermaine JOHNSON [address] [place] [facility] OFF[facility] 2022-10-04 2022-10-04 Orders Doctor HEAVEN 1.2.840.114 [id number] Univers 00:00:00 00:00:00 Only Unassigned, ARIS 350.1.13.10 ity of [place] [facility] 4.2.7.2.686 Arnie as [id number] [address] 2022-10-01 2022-10-01 Telephone Maira [facility] 1.2.840.114 10 [id number] Univers 00:00:00 00:00:00 Baldomero ANGLIN 350.1.13.10 it y of [place] 4.2.7.2.686 Arnie as DERIK?BLEA [id number] Ia debiangelito JOHNSON [address] [place] MEDICAL OFFICE [facility] 2022-09-28 2022-09-28 Orders Doctor HEAVEN 1.2.840.114 [id number] Univers 00:00:00 00:00:00 Only Unassigned, ARIS 350.1.13.10 ity of [place] [facility] 4.2.7.2.686 Arnie as [phone] [address] 2022-04-06 2022-04-13 Hospital ER Jessica Boone [facility] [id number] 16:50:00 19:40:00 Encounter Rosa Isela Ching [facility] 2022-04-06 2022-04-13 Inpatient ER PREMA [facility] Surgery [id number] [facility] 16:50:00 19:40:00 [facility] 2022-04-07 2022-04-07 Anesthesia Eryn [facility] [id number] 12:31:00 16:21:00 Event Lili [facility] 2022-04-07 2022-04-07 Surgery Greg, [facility] [id number] 12:00:00 14:51:00 Heaven Carbajal [facility] 2022-04-07 2022-04-07 Travel [facility] [id number] [facility] 00:00:00 00:00:00 [facility] 2021-07-24 2021-07-24 Emergency X [facility] [id number] Univers 10:12:00 14:31:[address] [facility] 2021-07-24 2021-07-24 Emergency [facility] 1.2.237.781 [id number] Univers 10:12:00 14:31:00 Glenn DONATO 350.1.13.10 i [facility] 4.2.7.2.686 [facility] [phone] [place] [address] [place] 2021-05-04 2021-05-07 Hospital ER Ga Faustinamanda [facility] [id number] 17:37:00 10:59:00 [facility]-05-06 2021-05-06 Anesthesia Denise Quispe [facility] [id number] 15:10:00 16:27:00 Event СергейJm [facility] 2021-05-06 2021-05-06 Surgery Nikita [facility] [id number] 13:00:00 14:30:00 [facility] 2021-05-05 2021-05-05 Travel [facility] [id number] [facility] 00:00:00 00:00:00 [facility] 2021-05-04 2021-05-04 Emergency ER [facility] [id number] [facility] 17:24:00 17:24:00 2021-05-04 2021-05-04 Orders [facility] [id number] 00:00:00 00:00:00 Only [facility] 2021-05-04 2021-05-04 Travel [facility] [id number] [facility] 00:00:00 00:00:00 [facility] 2021-05-01 2021-05-01 Emergency E EVANGELINA, [facility]BL [facility] [id number] [facility] 16:21:00 22:56:00 CRISTELA 2021-03-13 2021-03-13 Telephone Ezequiel [facility] [id number] 00:00:00 00:00:00 Tyesha Mojica [facility] 2021-03-08 2021-03-11 [facility] Paola Marcum [facility] [id number] 23:13:00 11:35:00 Encounter Rosa Isela Ching [facility] 2021-03-10 2021-03-10 Surgery Kathy, [facility] [id number] 11:00:00 12:30:00 [facility] Ali Medic [facility] 2021-03-10 2021-03-10 Anesthesia Bahena, [facility] [id number] 11:36:00 12:27:00 Event Graciela jessica Ricafrente Medic [facility] 2018-02-01 2018-02-01 BRENDAN [facility] [id number] [place] 08:00:00 08:00:00 tHOLLIE COBOS Phy sici CHRISTINA, M.D. ans M.D. Results Test Description Test Time Test Comments Results Result Comments Source Tissue Exam 2022-04-14 16:40:15 Test Item Value Reference Range Interpretation Comme nts Case Report (test code = 104) Surgical Pathology Report Case: [id number] Authorizing Provider: Heaven Garza MD Collected: 04/07/2022 03:36 PM Ordering Location: [facility] PERIOPERATIVE Received: 04/07/2022 04:23 PM SERVICES Pathologist: Omari Lora MD Specimen: Femoral Head, Right Hip DIAGNOSIS (test code = 3220) r2greOQwLHFlm8hjYFEfrDEbGnPbDdRmCeNiOm pc dWMxIHtccnRmMVxlcGljOTYwMlxhbnNpXHNwbHRw M4UlgnesKHgoPJ0yLM0gjUjsgMFhhUDqDGXrNmHn r5qht900yUSkt3yjRLSGxuomwRk2bJrqW72qx6X8 DobcK40ohHVlORC7IGPxTDPmgVPrVVPoLMO6KNYa cTYtD0sfPZPlBO0iemacMBwoCUbmNLOyxMN5ZLCf aOTiB9JlFPBeSNyjPLIsjcp3DkZxUn1kkARhcRce DXdhYBErRQGbJJipMJRtTzMaSr7QXZqnXrvCLTEp KcSSW1LGORGBWZGDABTFTcXREk3YSOIPSDglyKYd KLHjINVRKbbFKzzkLD1KNOjSXZ0QTweGN0LfVCFB DUORTFMMCZPZHJPTXOKIRfPBBSYRIKNZAB4PPNMy A77GP5cTQDPGCGAYGUBBXSjPF5VCOkimL0DyVzOJ D2ZBCgIdgMIdKLAtSDEVKrTZMQnBC96QUhXIBXLS BW0maQXvoKrxncFcGTjpp0GhNAbdHNHqLW6xpDok DARbAK9kVTBcB2yzsR7uwiz8SnDfKAUoAuU4UVLp ywC4Kao4HZIoNSvam1mdb4MpVYRoIEw7sGrrIoYq SBFfp7mvynVgYvMrROZmVXYcKDUaqATdD815f3vf r5grqtXgjDG9QUAqRHT1GQsgyxDztjN8HTfdqADu YcB0JKbrxlQwVKyqtkArroHuNti0UTTiV325HZI8 oEbli3ecHBX6XIFqZAHlCnCsXq7zfCUmK285UKIj ACTFOODqdSo0AHKiglBuwiZrvQPSs781C600i1cb LNBtxiEycXaGpqqwl2syG933MIXnsRTelaFnEhMp TSUaePDuhOU8ONWkIF7ilcczWWvxPCdsPNTkgrD9 EQGpxPSmR5TdTZLlWP1fzyjcSRL1LVoiLATgTNG2 SuYxQTNuf0Ziyvg7LtDadq7lwh28PBW1g5WncRwp GZV2KRY7JrLtFx4prFAgKTGvMO8tZfKoyVLlJKFl mk01nJinWAnzPMR3VCClsbKhp5Ocm8fiOyJtgaDs Z6wqW1AgPFRmXXAdFWKyRdVrqtIta5Jui7UxrLZj rSn5o4cwYGYbVXTgvNsqu9mbBNU3ECEiyHZdF2kn xB5wFUWmPT0vueooo8pmOBsvCAytXHVqlMZ5ciV6 EEPdiFZjM0XrlI6jWSEwKBwrKGEezij5MpIrGf9w dGVyeTcyMFxzYmtwYWdlXHBnbmNvbnRccGduZGVj XHBsYWluXHBsYWluXGYwXGZzMjRccWxcbGFuZzEw BzAejLotsStxWRzqViMaIHDzZNzaG6xaLmIbQvGw Mxe8CZRnxTOxDOXkHhw0XBSphUEdDACDfJxwaH4z FLIldXuhgK8qvVO6HNSuoyNweQDKhD1wVMHFlQ5j SkV3DoWlTkU5LLw2EjKycVXoaK4= CPT Code(s) (test code = 3357) n0ilvUKhQHJxkQD8UmLlMBAha8mdc2KjzYSb cGFy TVlirLZzsdPgwe25fQI6lE06GJ9tVMQaFeV3ERSp bgZ6Mkv3GFVgWCOjeRDzH540u7bgj8mdfzHinCE4 pAjdUZFbbncjUqV5LHwrYEOrnuuaSMw7DOgcMWCy aZL1UVFmvTMgC1WlJVQeHE3vspx7CSQ7HNcjCTUg HqI4EXNspLKtKJYpnHayQEqcv797FRM1ZdDlVILi hyCxaVsssS6cRbZdDAV0YUBgXSnaERugRYCadELp fQ== CLINICAL HISTORY (test code = 3356) b3ifkLSgOVAcgRI7LzQlYWUnv0kir3V sdHBncGFy QWsgcVXcefSnrr20jGE0dC06BR7ePPWeZtX0RSEe kvE2Dmo9WOTpTMOblQTdA088z0bqn7rnjxVpkIC6 FMYvWWHwF4DxVI6fGBLvzYNhR77mvHJiKAC1XHTz NJZodDQyGLSsRKD9XIPxfHVzB0vvHQHuNK0hxmem GWqaFSblAHTssVJ7KBEdeDTiA9HnFMXiIEgtOISy gxc1LcSvSs0ltAThnTzfGEhxMHIkKGOdGMdhtZHv jlrtahJfQDZsBCCRUUqPALVEXDVaGpWWJ4XQGiLo cGFyfQ== SPECIMEN SOURCE (test code = 3377) u1kxxVBuBBZitYT8WeVhXUSfs9icb8Rl dHBncGFy KNqvzMOgwcZdwm69sSB6nR17QE7hVPGlRhY8BFJs cpX4Ypy9KGDwTXWrvYCgM833x4blj2qxpqSmeBN0 kMjyFEOokrduPsZ5WFfcCFUuhopuNWk3AZmwGLBi mUA6YHFocLZzA4DnXFFmIS4xfxc3BTG9FJddNBXv PxV6BCCcsQQmIRPxqAnpPWpjk385EBE9BrAxVIDa snUupEcryX4fFyEmQXKQTuQMYP0ausAjBWzrWITs QDDvK4k5FAkvsA3srQXofO== GROSS DESCRIPTION (test code = e1rcxRGsQUAhoKZ1KxGzWESbl8ich1HtiJPi cGFy [id number]) CBjqzNTvcmPmay27nHI6yB84NK5qSHHnKoY6QANx tqF9Lil7HOJuVIAyrMOhN251o9rzp3uhmaWlwBV7 SLKmGPPsW5VoEZ7kVMBqlWYsW71mmKPaEMR0XMXe DATdrLMvNQVxJOB6EKRanUBfX4ykLEUgWT8uflmk OKxgGOfdUDUcbEX0FPKnzLQvE5TkOHLbFYhaNANz oew6YsOcMz9pdUSbiMkuHXtkOIYua5uxACGkoJLf FUN2PHfxoOYsRCKxOIAuCMl9YPReVVbcxDZeHL1g nKlrDnlyuIjjt5MroDTgYCckVUXhZPAiSUxiOXPa M4PQIJVkQzq5BVkyVzZeWPo3XAezE6XLJNKpCIV7 INN3KZHvDuP6BDs4PDVYSd5uGCf8FhH4TqR4NPT0 WcN4MXmppFLcUXqvOcxyWKxgMFVisTEmEOpcohR9 VPOoSMtrXAHiBaJnHO3cEpVjw5GhmUCRAMDlRZBZ aWdodCBIaXAuXHBhclxmczIwXGNmMSBSZWNlaXZl ZCBmcmVzaCBsYWJlbGVkIHdpdGggdGhlIHBhdGll uaQmvkKuMS7yUEBbT4Ync8Wtx50qtbKhQaVfZUDz SOCoytumbMDqsCcrSHYkdQ8wBLbpcWKwNCRnlXCe VCG9RmCffRH7HdJdoILwVuFqU29aOdKyr3UvcUGr JDOdEIfnlVtaSEQfZDwuFHXxMRyjeY7mrjruD9fl RUD5ornwQ7MiUD2hjsghws4bNDAiKVJfykZvS4Ux VFYov8RiTgLgVVDafyIvgH2hvWitnK3fLygnQUf5 HZnhFB08nCPaUoOgTFwcHUW5iFSboDBcPSNqCOtj CXFrdp48EGukw1xbPFLwYoM0m9DwxLKuPJ4iqzLt NFyxVrPstLL7yJBkvQVyF3qmVDJ1oxRyMRP2rQO9 JLAlAN0aBRDrzy2rJFNNKQAtAZVmsxLggTo6TVMv BAO0gJ2urtRolyJdi9CdkTm0pCCcNKngFQFaMXIz WOMnpHbrc6ryAhXoWQNjeMMjLkedQOHxp94dNRfn wXvyuOorAP5xhtynueDznjZMWH6usFuyDCaavP2h RHZwdFXpTMUxH7ZbtSaqntvrTBYjVJiRNCoWS7DC LRrcYFGvD6HgR4FlxpR8l9dgcCnjy5LcnPGnYH1m cGFyfQ== MICROSCOPIC DESCRIPTION (test code = k2hbmLNmIRQchZP8AhUdMCCxx9hll1 BsdHBncGFy 3371) SWoslREmmvTzrz00eJU7dB39TJ0cWUZtMbZ9DWNh ujU1Jyi8RRTwNFKksBGwL648d8fwt6nklhVhrSG5 yOkpGMAbmnpbYoE0TDnbXHXtrfhiNMp8VWvaBYHu bTL9SSSooPOsI4LbYBLvGR9kift1ZXK9DZepOWAl LsX4XOPspMQeHXKldIdqWUbhl136KTT3XyXhLKZo kxJpnYkbzQ4sVoZoMDCCBQAjh5AnMGDcMOZtxd7= Gross assessment was performed at (test [facility] enter, code = 2777) Department of Pathology, [address] [place] [address], Technical component was performed at [facility] er, (test code = 2778) Department of Pathology, [address] [place] [address], Professional component was performed at [facility] enter, (test code = 2779) Department of Pathology, [address] [place] [address], [id number] 16:40:15 Test Item Value Reference Range Interpretation Comments Case Report (test code Surgical Pathology = 104) Report Case: [id number] Authorizing Provider: Heaven Garza MD Collected: 04/07/2022 03:36 PM Ordering Location: [facility] PERIOPERATIVE Received: 04/07/2022 04:23 PM SERVICES Pathologist: Omari Lora MD Specimen: Femoral Head, Right Hip DIAGNOSIS (test code = j9hbcQHqHAQxk8mmUJQpfVL 3220) uZzEwMzNcZnRuYmpcdWMxIH tccnRmMVxlcGljOTYwMlxhb dNqDXDjqNKyF8FmvohdIRog MG0hZM0mmAstoOKbmQPfHTL pWjDih0dzf013pYKqj4rfSW ZZxwpfoXl0oSvsS71yy2W9Z xdcX60zwZLtKNU7TYKvESUa hBEgGJBkCGE9NTBejDPpV3y mLPTgVP5bqicmKXicHNvaLZ UqjNQ5EVBgtDZoR5FwZLRyS DtgKEIrocp2DrGdPq0ikFMx eTcyMFxwYXJkXHBsYWluXGZ pOqSrSc9PTVzjLdqAXQSuEj KSV1YHXUGBQZRAPSUFPoOHF w2ZPDUCMUackYVpIUUeTKXY JdrMPkqtDE4JGEiVHN9WJmc IG1DmHULSIPXUYQQIOCJMAM CLZAQNXzNAZWADSXBGDP4LM RPgJ45SM9hNOIMZEPMNUWLJ KErSD9BXShfkA2StBaDVH0T VUkVccGFyICAgLSBOTyBNQU aHV07HLbZRPBPFNG7mwVLtq FtzfiElGQmfe3FtVHyeCYEx IR6jqKriPDAmGA2qWAJeL0w oyV5qtgu6JuXvWHHlSeF1KZ SrysZ5Bwy9UKUtYZfdy2aoz 8GzKRPxRAy7mQsxXuXgBBKv o8utfiIwEiHfEIFqLAWhLTU cvMDeW208y2xgb6ywlcXesR Z2AHJiRKG0SGjchwFfupH0Z SwseQDyFqU8DGkumvKsPGwf mrUnojXhQdh4DPPgG047DEF 2sYbut3kwLWA2FWDjKXXmXo KeTu3mcBLkS343RMWbTDHMU BGsoUy9QUTbvtQxbmCwbVFZ s576D431f9ajBNWlagVlfAo Dquefo6aaA232PDPusJMonw HlXkOoEOCmzGBwmUP5CRNoC F8wkikbHErwJDtgHXBibeZ7 MEAfoRJxR5EbYKGpFR2aapt iYGF7NThxGASkPZZ0GrUxFA Sxl3Uokub1UzLotv8izg23S EN6x2NkjPtbTMC7CFO8QeFl It2bcAWeJPWqHV6aLuHvwXD lYSIhbp48fJtlRTnaPQD2JJ RqlfLdz9Crd6wqEeMhzlKoA 5qiP4WnOGOpWCFnUGQvKnAp mwGhh0Lex0MozFHtcBt5m9q lIMStELDczOwhk1qfBZO9IV JouRCqS9fxiI6dUIHoWZ6bt rbvn9ooUIhuIRdyODTxjHQ5 nzT6QWNrjBFvA3UhnA1sIPZ wSHjiNNClcbx1FvOrCi3fmO VyeTcyMFxzYmtwYWdlXHBnb mNvbnRccGduZGVjXHBsYWlu XHBsYWluXGYwXGZzMjRccWx cbGFuZzEwMzNcaGljaFxmMV yvQzTpILMsIFvvL6pjYbMpW rQjHly8HLIoxAHcMYKjMcv3 FBQslOGhPATDdEqjxF1yVYL waJdvtG5wfOZ7JJXrglIohU GTuK4eMODQeG2vXiP0LrBhW cP2ULr3KvNvwPXiuJ9= CPT Code(s) (test code r7guoBAcVZVkjGE6OpYiTNH = 3357) xe5mmp5BnlHDtnWStJKzlxT JnpgUmwq56hVY0eX51KF9tQ IXvHqS5HBDicvE8Ruy8MNRt VJQwnYDyX810f9ziw9jyktQ ckLX7zSaaFLDzpzmuOsF8WX uyYSJcmmyvUNq3CRqpVYXka VA7FSFveLLpT6WqXVSgYH3m ppn2CVI8RUmqAXAoLqQ0PCO yjOGdWFKtvGewUWoie855CM N2KiXsLPWsdmFgzPkehP0nI sEbIVY9XRDbZMufTTdmVTEy cGFyfQ== CLINICAL HISTORY (test i2dtuGBrTSZphDM9PoNeMBH code = 3356) nj9rag0KkmHMqyJChZHpohF LaxfEimv86hPX0bD38TP5eN TDmZlN6COXrekJ9Zzm9IDPp CPWpmRDxA145j1bpt4itndO ckED7LQKxWBFkM2OaKQ8aEO JggXIeF42rjBBrCCT0KOAeR XPqzVHhUIQlFPH2AVEvoWIo N1yhVGFdFB2ldbahYOpnNMw nXEZvkGT2LMIebIKzF7ClEK AqMMgiXWArwtu2CyHeMf8hb GVyeTcyMFxwYXJkXHJpMVxw bGFpblxmczIwXGNmMSBSSUd AIPPDDMOqHtPVV4BTTqVtrU FyfQ== SPECIMEN SOURCE (test b1zcmWNuYIKvfOY7HeAbHWW code = 3377) vt2fwx3SjgUWqhKNpKWpyfP MtmlNjol42tCA7aR72SB0vR IBxQhT8IIBvssW1Kuq6WBHe DRVkkCCsM128q3myf2rbegU ngGK4pShoRZJpozfiXfV8TR nbERXzsihnQTh7ZJeiGRHsu RQ9BACulWZiZ3AfVWUvUN5g jqa4OYE8SZdsTCLqJuB4MJU zjRYxIFDqkUwkYDjed169JH I4RiDeFDGnvbNmgSfvnQ3hS wWlRQDILpHHUY1gzdLqRGnz AUHaRJIzP4z4MYmksI4oiFH yfQ== GROSS DESCRIPTION l9txiMDgQXZcdFY7CvZnWQF (test code = gx4mhr1OmfACplXJoLJlsoU [id number]) XnhlBixb54rGO1dJ86JY6jH RRkHzH6MSNhsgF9Iqo1EYBp TAJyuALxP437d7pgt1gfczL gzVI8NDQwYILzE2QdAH2qTK EiaMHvA73xvLBvHQI1VDTdC MLyaYQqYPUtNLQ2XNHmmYJs O2myHYHbGV3sxreoETktQGn aMMLzrMV8IZAzfUZuR8VsQY QcCFjgLLOutbt8MyDmSm0of CQnrActFDbgPJDes4omKSRe oFPdRLX4OLhacVSaNGRlGVH gCOt7MKZbGKmhkPVjLH9agJ trTsaqlSqph6ZtcOMwHDzcO MVdGWEkRIecZZOtF9JLOOUo Tti6IFbkZlAzIHk5UXvmH5H YNNAvUQC4APR6WHRsMnV9OD b5FWZNHt2yPWk3YjX2DeJ5O ZL9ZzT5LIswhGFuLYmeXdvi IBsyYBQkjFKrNViveqH4YQC cAEbjEFKzZsLnDW5rLiAoa0 JhbCBIZWFkLCBSaWdodCBIa XAuXHBhclxmczIwXGNmMSBS ZWNlaXZlZCBmcmVzaCBsYWJ lbGVkIHdpdGggdGhlIHBhdG bkmxEnuyPjDB8cMVXuD1Aew 6Hai05wrdCjCkVvAPBaTITi aqcueKSjcLatSBFqdV8pEAn ofLCvADNllFTfGVT9KmMxgX P6DjAcdVIfZaBcT20uAfUxz 3JhbCBoZWFkIHdpdGggYSBq GBbrPALuDIoaxL3oprajB1v wYYC7slaaA4IyMK1tbjcfab 9qQBFgTUFftmEqF7PgZJThb 4QuIjTlSMJcgdOuqR9yvJny gV1hEtaiQWd4XYdsWC76sDO jXaDaNYczGOE9dKXvwTEwPU TrLPcrTBDdhw83BKbhk3rhH GQxKjJ7x5EjzHPxDT4zwtDv PStyNjFhaNG3hTItjWZwE6h gWFP0xrHoDKN4iRH5ESJgXH 1aAIQktz8fSXFOERVaLNGqs dYwfTp6IGRmKPV5qE4gpiMa vhUxx2KtiDf7pGPhLZrwRYT sMLCuUSBcrTgvo0tqWaXdPG SpdBXfMqvhICXgj28oHMlpv KksqThxPA0dvigmtdUziwJS MX7hvFdvYQcclO1cYBYrbSV gTQLeO4FucJsqiokqXTMuRL yDNLiMR4KFZJqlHXOtS5HiG 4OwnhF3a3cpfSuwm4WlwNGk TB1chRApxK== MICROSCOPIC g7lzvJNlNWQuoKH5WgWsPTE DESCRIPTION (test code ub0akb2RpeIFgkBPxFJclwW = 3371) CxtzFyoq63yKZ3aL74HS0dU QSvJdM0HUFmfiT8Okz8WULc OVRgkUIaP896b0skp3krgsF dhKD6oEhuFDTckjnbGfE9IR muFPWfqhmjTWa8QKrsYSWhh IB7BMHxrWSuT1EbWFSnXJ3p fqm2ZIH9WPjtUCJsBxA7IUW wlICfSZPyyLcwMYibz422KC Q3TaYsKJAqloVryPvckJ4sU wYkFPDYWHCjw3JdWTWsBWEv cn0= Gross assessment was [facility] performed at ([facility], code = 2777) Department of Pathology, [address] [place] [address], Technical component [facility] was performed at ([facility], code = 2778) Department of Pathology, [address] [place], [place] [address], Professional component [facility] was performed at ([facility], code = 2779) Department of Pathology, [address] [place], [place] [address], [facility] [id number] 16:40:15 Test Item Value Reference Range Interpretation Comments Case Report (test code Surgical Pathology = 104) Report Case: [id number] Authorizing Provider: Heaven Garza MD Collected: 04/07/2022 03:36 PM Ordering Location: [facility] PERIOPERATIVE Received: 04/07/2022 04:23 PM SERVICES Pathologist: Omari Lora MD Specimen: Femoral Head, Right Hip DIAGNOSIS (test code = n5gcyHPzQDWux2hpOHCfmQI 3220) uZzEwMzNcZnRuYmpcdWMxIH tccnRmMVxlcGljOTYwMlxhb bUtZUMmtMBuU1KxpycgYMqp LM9sBJ1ttBigiEGrsYNuXCH mJoTxe8pyx489jUGiv2yvBK LJjzcwcCj8nQreE52ke5Q2M fhwJ90zcHRgSVZ5TMZrNXOb vMPuKMIoBMV5EKWvkFBzH0p nGQNzPH5qozucFJdiNXhrOO QqcHJ3GPGydWZeR6OtQRRnL QjaZVWbmsz5SuTcQr5rzYCw eTcyMFxwYXJkXHBsYWluXGZ tMxNjZa0AXFlnDkmJRHRaUk MIG1HRBSBPKLKJPVWBTjMDA j1BVKQWITfrxMDrVDIzEVQC BumPSatkTM3ADHzQFC9TLkq UX1JpPJEEREUPNAZEXBTUMO NSIEXEUmLFVMMQMNVWBI9LT ZPmH88YZ9vOQKJDHSARZFVU MEoUR9NZWgtoJ6OnKdVQH9C VUkVccGFyICAgLSBOTyBNQU uRF28AAjLREQBMBS1ioVZsv MeaofMyITdwf0WyOTxxIPQe ND7foSatZFKwNK1pYTAzL7i uiX9jbem0YqIeYDXrJmR7MD SvhyA4Llv7WRQhOYdxk1xte 1SoKWUsSQl1rApwWtAmSQOc c3brmlIvOeSdJGRgJHEkCGT fwNLlG748j8bce1jfdmGcmU D8OXZqNPN0JXxuybSdfaF3U YemmYMxIoZ2LBggeaFyPVfq nzOaroVtWau6EEWlK399GEG 9nFsuf2ckGHV4UJZwESLkKa HnUa1elRLuM018SJHcKRQON CVxpGk8LPLxavBjtcKzkGDZ y667Y612x3fdZGTtxvUarMh Rbllgx5fmO864DIIjsPCujz UbRaCgCXVilLHwsXX6GEKnP D8knovjJRhiJCzuEMEpflB2 LIWkdTHaE4VtSBQtCD0jngi sWFM0GNywCOJeOMK9WzQrWZ Nrw2Vysor9DtHpdq4xtb50R MA4z4KfoKwvHVY8DMH8ZxPx Hh9vjVDaUEVtQP3uLdPfeUH fTILmna01cCnwHJisXKX5MS IvkiHuw4Rmu7bnTuHbmoNeG 4siU6LkJBGyDCOrEVPaPuCq tfHxl9Gpj7QgxJGycCo8v3s zGITaZRNbwNidw3bjZRB9LG WgwXCwC0tseV5cUTMuYV1vm ccay7blZPxzRNagSYRtpRL1 soK8GEFdeDUfJ6AtmW5uXSV dHOdlUCGlvsl5NqOaCd1xmY VyeTcyMFxzYmtwYWdlXHBnb mNvbnRccGduZGVjXHBsYWlu XHBsYWluXGYwXGZzMjRccWx cbGFuZzEwMzNcaGljaFxmMV arBgLiYSXqKKhcS4guNlSzP iKpVoh5ISLxjJBkWWMjVue4 FSEuiUGnWKKJvKukmR9xDAR ypYokyY5yvSZ9YFMpbtOlsQ FYjW7uMCHQrO2qXnK6FuGkZ aS5RJx6JpApqYMsxK5= CPT Code(s) (test code l6lhuJHdYMOqyDM6DhBfKER = 3357) ff9tpp8GbpFTqsQReIXwewF YvjhKhii80xPJ5bL48PE4eV IHqJiR6BKJyeeS8Scl0DZUk YJBvfTXaM539a9fpd8njnuK oeKH6eEerMMCsehtfTvP6CE fcDEGssxztHFd1STstTTVei SR4XRWiaIWyI6VsIUCcAD8j tkr3JTX2IWqrUAEdDbC4HPY fcBNtDWPpfKduWSoog925ET R9WeWaHOTzepSymUktwG0eN cPlRBB8DWSbNZdhVOftABIh cGFyfQ== CLINICAL HISTORY (test y2mgzUUsURVpfXE2MuGcJOI code = 3356) dz7fpf6EqtQCndIUjWSqvfY WgdjLaix32iMM9zL25OW5kN AYzKgP2TCQyiiP2Lcq7GCGc MFXpfYTjO242c6sza0zkeuM uvWW4QTWnYTTpD8KpKP3cDY MjnFAuB37lqXHtUAP9YMFgI IWsxGRkMNEjIPF3RSBezQXl L7ezVZWtWY9byydsBHytEQy nUBFgkPL6NOFqdYHaU3HyXI JrRHfsJRYozyh2ZgBtAl5gm GVyeTcyMFxwYXJkXHJpMVxw bGFpblxmczIwXGNmMSBSSUd CPZRLDHHlLeNGZ7ZZGeHmvT FyfQ== SPECIMEN SOURCE (test v5gwtASyMAMaiMY9JaAtGZT code = 3377) xo5lgm5VimDBfmBMuJPxhbM TutmVvfh75uIT7vA52SI9sR UHmAlP8MSQmrqJ7Kfr7JUYt YLDkzQPzP178p4ilq6zlijI ncLX7oNmhIUBcynquTmN1OE elZMTdgqglEKw8RGzqZDGcj RL1IEBxnJQsO3EiKVJjWG1r zvq3ROE2FBnwRPEhFiI3XSX kpOZfLAQoeTktOPjwx637FW V7ExXjUSTpijDlxTfqdJ6hC pQeNMWOVaDLJV8oluJaRNvz PRKpZHNdX0d8VLrycQ2myHT yfQ== GROSS DESCRIPTION l7xgfCNzDVOhlIR1MeNrTFQ (test code = yu2osv5RxnTGpbLYdWUxsgX [id number]) EbviLygd31iKS6iM89AK0aV WSzHjJ6NGDaowT3Rmb1WZSd AFBrhDNuN053x0nxs1uvthO tiCC4LDIwNKJuQ4FiMT8yCR QkoLYjP14hdTUlCKT5DCBbM SLcpKAfQWZhFVZ1XRRywJWc R2zfMNPlQI4qhkdfEYuiNQw gSOAazBF2YWEqoEMbZ5NqNB SaDKycTFDpwzp7QtRkRr9om YFdeMrzGFzgWPLpv2ynODUh gDSpMTC4VKyluDRaIVCkYSK rJQt5SNAtOKqlnOMtMY2crW yyFdornBrxa9QmyRKiMIivQ QKdTOOuTGjqCNTbS0PSCUPk Tsz4GCybTjXvUAg1TBhbZ2Q FEIItXBD8RYC9JJWpSuM9BZ f8TWUCWv3oIZj2VeT3NdD5F VB1McL1NRhsuDLqTJvnBvjh GCbjENRagYLhUTsetvU4WDF aOMbrNEXoCeHqBD3oZkSkt4 JhbCBIZWFkLCBSaWdodCBIa XAuXHBhclxmczIwXGNmMSBS ZWNlaXZlZCBmcmVzaCBsYWJ lbGVkIHdpdGggdGhlIHBhdG pkaxJwjdMoKS8aMUAeG1Qtn 5Xfi73rpjSoQcReIJOeZBHn iiftgYIleLlnIBTyxD7vLOp koWHxPZHotNWvYAY0EjBdlT D7IvCwpVSuYkLcC05fNrDct 3JhbCBoZWFkIHdpdGggYSBq XGrlYBGnOLxzxZ4uofkaB2f gQQU9iwqcY7RdFY1goictyn 4fRAEaPDGseaVyM2NhEUHkt 7JxJsWbZEEtkzTguM3ezFdc uX1cShruIRo5KOocEI25ePZ jTbVmUFreCUF2wCLvaCQoQM CcANsmMGZqvw58EFdjj1auY CBoKyZ2l3ZowEWjEU9aphHr UOhyZdVtxTV6rAIsuBCxS4d uUBQ9adHlFBW4pCV9EXVsRK 5oVPUhbl4kKVQDOFVnEFZkl pIgiAp9XCLyWGE6eE1fatNm usTuq4LioTq8iNIgOLfbEHH sPHLzJGHpbXqei9pdXjJjNR JcvZOkPhovZSZdu78rHKxut AokpNozFV3bylrpuzLkaoQD MQ8uwBbkJTxxpI5uMEEwvZE qNWOfM8KjfXzdjuctBEVkIX bVVAdFP9HYNVkoDWWnJ6XeB 4NlzmW1v0hybEhsn7HhsJLm CV3gmYMaoS== MICROSCOPIC x1iaoRUuCPMjxNP4SsLaELZ DESCRIPTION (test code yr9qks6FbbZJdfMPaYSiysI = 3371) JrulLtev26zJX8yQ44YZ3dN TQqWzV5YPEkbkA2Hua8PKTk EFDjdJXtT389p6wyo5sgfyU stGR9tOwqAPJzaufkCxH8LO nhPYNkrmamADg9GNusXJIky ZQ1FAWecPQjM7LvIFHgOU8w vxc4OXB2OYneRJVjSyB1OGR bbYSuPIWkmJtiROynb540AH F8CeIcIFHtksIzuFlsoR9tS nGcFLMLRBZjh0JcBEVjOTJk cn0= Gross assessment was [facility] performed at ([facility], code = 2777) Department of Pathology, [address] [place], [place] [address], Technical component [facility] was performed at ([facility], code = 2778) Department of Pathology, [address] [place] [address], Professional component [facility] was performed at ([facility], code = 2779) Department of Pathology, [address] [place], [place] [address], [facility] [id number] 16:40:15 Test Item Value Reference Range Interpretation Comments Case Report (test code Surgical Pathology = 104) Report Case: [id number] Authorizing Provider: Heaven Garza MD Collected: 04/07/2022 03:36 PM Ordering Location: [facility] PERIOPERATIVE Received: 04/07/2022 04:23 PM SERVICES Pathologist: Omari Lora MD Specimen: Femoral Head, Right Hip DIAGNOSIS (test code = g4qauJKqIQGxs2paBMEreUZ 3220) uZzEwMzNcZnRuYmpcdWMxIH tccnRmMVxlcGljOTYwMlxhb hDhPFArtUNkX8ScuyvdAZoc LW8gYY5kfPqczZYshIRsZOI sEcNao4kbm049pKZkw1gpLR SXpkhuoKv7bQinX61fc2W1W spfL28kqKPwPOH9XMUnSWQm tFQmSUPhUZE1ALKvxJTyY5p iRMSnAA2owwbrTIzmBRxlOT LlrVR5MOZmsHApD8IoLQTcO QpfLOXmrbx4DuIwLl8cfHUg eTcyMFxwYXJkXHBsYWluXGZ lUgUqHh1JYPjcCgcRNDGtWy UQO0FXWEHURVEGTIQDGbVLU p3HCWYBOZvysUBwQZQaFVGY JovMIcudKV9MXYjRPI9ZFvu DW9TtQIWDYIMEZDPVEIFIKP NBNUPXJoXTVZVRZYMRXM3WW HHhB08ME1qYBXUJMDYKUECG FIeGC3LBTmrzI1LfKjZRQ6Y VUkVccGFyICAgLSBOTyBNQU bAN28TFrGOWGLTUU8ogAIeg XjohtNfQGcos3YpVOwwLNTb NG5kyEbkRDQxVU6cWLEmE3r vqD4veoh9DzAcHVPdGvC2HM GymmH0Gnx1RPUuBNfjp2uas 2CuORBeQJh9vCiaAvWdKEBd y9itwwGsSwZqDYBxGUPfPNV ztIBeW841u3kbm4whoyPkfK N9OFKwHOK7SIbpekLgpfX6C LisrXRcZtM3WApzapEjEFlh mhOtrjIgIoa1MFKrQ031NEB 3zNeco9stIQH2AVRhIWGyFr GfTy0buGThE464KYTmSNKNE HDmdVf8HCCdkqCxduVuhJFI j846S460j5chCGMhxdTifMg Ftawpz7czM230HDCjiRJhlu RxRnGrQYFgmFKjkYR4HRMkG Z6prvywMHgdSXbnSRJkoxU9 KRRxhLFmG5KhXIQtXL6ttzr nIZW2UVvcLNVgFUW7BdDlNJ Ein4Juszl3KrMdwd4gka47T DY1p8RxyBbzYKP7NBL5QrGh Tt9qmWFaYLRqNK3vSoHutFO rJNZkej92mFjcXRvkKYX0CU JssgSqb5Aeq1pvMiNzkwWfJ 0daH0OaXRAaLIKoKQBuQfMz vzAmv9Ugf6WiiDRpkAv5k4o kHYPfUKKjuQcki4vdRZN2SY UzuXGtH5vpgE3mSAKsDM7mm ztvh2hdEGrlQKtsDVGngGU5 awX8MHUlyCNvY1IloD1rFEH uAUwpXDXwrcc6IvJvLg1lkF VyeTcyMFxzYmtwYWdlXHBnb mNvbnRccGduZGVjXHBsYWlu XHBsYWluXGYwXGZzMjRccWx cbGFuZzEwMzNcaGljaFxmMV nnJiVzTLRbWJtyR8zhPwTxY rPcRwu6TQEgnQFvHCKdXna9 SQIzqGKfSOINuEjjqY7gZAK ozAckkB0dmQH5UENwbyGxuS NLxZ1gPQCGgE9wLzJ1QhYaG sE1ATa3DbFuuNHjqZ4= CPT Code(s) (test code w4unrKGcZVQcyPC8XzOyDFT = 3357) ue1oup0MwbLSkmBRdSPeekH ZimvNvce41vWK4nG78UQ5pF WAvJbX5OEGtahD4Onx9SNZp JYNpwYNvD247q3wmn8uapeK vaSW1vIzqTJBzwzehEaQ7DJ vlGICaguakVWm8XWhfNQKzb LJ8DWDshUOjT6ZpDBEsKQ4p ivc6LUY3IStrOPXeOzC7VAE yiBKnKBKklTtwUAena911BB K2BuGkHVDgjlPscSqdxL7wY uRpUCY5CRFaYCamKAhwCEBa cGFyfQ== CLINICAL HISTORY (test e5ylgBGwCGPovSL0SyVdTVR code = 3356) xl7czc7BzgYPimUPdVTznpD GatcBenl72lPN1yP66IF4fN DQxJhT2UZMnxzW9Vsa9DKTi RRMbfBMfE962o4duo2evufF goJI5XNLeQDLlA1SxRP3vYK IwoAYjP63hwEOkEAP3XKBzP JGjmYFcEKNkJII1TZNzrFHe T6hxVCGdZR4oaeklHEiaYZb iRBYewUH9TUSxnZFkY9YyQG ZoTUziKXTptjw4YrGnIe8oy GVyeTcyMFxwYXJkXHJpMVxw bGFpblxmczIwXGNmMSBSSUd IKADNBKZpBhWEL7SXBnPvrQ FyfQ== SPECIMEN SOURCE (test c1cfqZNeBAExtCZ8RxDyOBO code = 3377) bp5bap1DzpMZpgDDnQOqplE XckgYnke55fYH7cR16RJ9wE CJgLnO5HXJgvqU2Fkc5EVYs CEPywYRtW574u7vku8ykntW lcIF6oShyQLIpuxywMiU4GH nzUJQydovkGTj4UVrlGJVep QY2WYHdmDWzH9SsOKZoJD3k xak2JFY4JShlWEQkVoW0YHU wdCCjZWVwkObhIGdov779AZ V0DwQjCAOxgzQvxUkomG1bR pUtJWBHErSLDF3ylzMfMVhz GRVjNSVwN1y0UQubjC7gwCP yfQ== GROSS DESCRIPTION c6vemOPhNQUkrLR3XwEtSHU (test code = la2etd0FgfYGxhVBoTBareM [id number]) GzokBpge57xRJ6sI99ZN9wD IHsKzL3IYBewzA4Ils3TBNr SLGllMIvU901a7cxm2dhdgF bqER0IEBrLODqC6SlZR3dGN BhxTVhA50pgSGsKDJ7UXChF HHzmIMsAWOoUFR1ZHUdyQIl N6mgISLnXP6khjlbEYwtOEz jWGAqiZP9OCYoyXCiN0WrKI ZeAXpiOTIdjgl0WyHbVz9id VOufWwvXZwmOTKtr3leFJHa eHLyNQY8VDfeoVRdNESgMNW jTTx4ESQwPDzudPEyRU3yfO qcHflhvPbik8TzdFKdJOhkW BYiAZQpQKsjCRFzE5EYWQMb Hvj2CXrjChIfWOo6TQmvL7P VQJHnNGA3CMK4DPAaHlR6LE u0CBVWUm2jYAd3MfN3MpP6H WQ8EqX6BOoufFSlXCgnYazj GDjvNEMmtBHdTIaqscI1TBC iPWgfZPWaQqCtJD0iKlGlv7 JhbCBIZWFkLCBSaWdodCBIa XAuXHBhclxmczIwXGNmMSBS ZWNlaXZlZCBmcmVzaCBsYWJ lbGVkIHdpdGggdGhlIHBhdG umkmAmssJdUW0jHFAjP6Eba 3Oem44nobDoTjNkQCToQDKk hjhbxAFkgOpcZDEuwZ2pCMb krJIrJYNaeETzIRN7NlAlgW P0GjVjoLVrMfSaZ48nTqGnn 3JhbCBoZWFkIHdpdGggYSBq TPhmRQBnRFflkB2tveqeO6o hFUR6qddeS2AqZS1pckteuk 6nXXTdCXYqdgKiH2OvIRKfk 3HtFrVhYABojwMsvN2etUbw bU8kQqjsBMp6BDkfIL91wIQ nXrTbJTscKRS6aYJquCVoCI WtLVczHUDvej06HOnjg2osZ EPdIfK5s5RnrUJpIF3izjUb LIomMsFmrSR9pZTsjUYiA1r pFIA8biTcWCO0nVE4HWOxGN 0sVPPaly1iTTIEASYnIHXgv yXfuVp3DDIoTNW6xC8kquIi faXhk3SzlSe4qSCvMAboLIY yBWIfFMPueXcsi3cmCcDnXL JnzPRaUueiHHYgl78qTClip YewjHvsIG7impvthaYnztOP SD3baTetLSqurU8vTVUfdVP rJMCoS8OpeRduarjpBZEiQH lMWLpBZ4ZPAMazKVHvU0DbO 4GtsiZ7s5sszCelt7CphPQj ZW4stCUbrU== MICROSCOPIC k0adiYGdRQZrjKF2QeFeKXI DESCRIPTION (test code ib2ksp5QtnQYfaJHhEMtzdA = 3371) RegvNaay99iWS8kN81SQ0nL WLqUsY9ZCCtfyL4Nqi6EEVa QHPgsMIdI298u2vme1gkhqJ smNL0kPctUCNncnrqTvO3AT omRHZpafugIEa5LXexDVLsm UO6PREpqVSlG6XuGKUtMJ3q lmo9RQK7JItcKVKpLnF4IQT dvSPwABWwpXhmBDlai518AN M4SwJhGDDukeMxzNgywF7wB qIgJFKHMYJvm1FtBESsJQRc cn0= Gross assessment was [facility] performed at ([facility], code = 2777) Department of Pathology, [address] [place] [phone], Technical component [facility] was performed at ([facility], code = 2778) Department of Pathology, [address] [place] [id number], Professional component [facility] was performed at ([facility], code = 2779) Department of Pathology, [address] [place] [id number], [id number] 16:40:15 Test Item Value Reference Range Interpretation Comments Case Report (test code Surgical Pathology = 104) Report Case: [id number] Authorizing Provider: Heaven Garza MD Collected: 04/07/2022 03:36 PM Ordering Location: [facility] PERIOPERATIVE Received: 04/07/2022 04:23 PM SERVICES Pathologist: Omari Lora MD Specimen: Femoral Head, Right Hip DIAGNOSIS (test code = [id number] 3220) uZzEwMzNcZnRuYmpcdWMxIH tccnRmMVxlcGljOTYwMlxhb mXqIXTpuOTdR8ZbegysAKpe NW1kIE7gmWnyrFZnoCWpUHE lLnAsd0rog266eHHaj7jmKO DUrgjzgUs1hNyjW13xp0W6K iphF97gzELcQEU5IVLbKJVg aXZaLCCuVVK4PEKddMOnH2a lQNOmUA8isnqtYGbrIEtcXJ VegLX3DCXicCRsZ4LmABStB UoxRJXtpth3LcBfBy5xoXZo eTcyMFxwYXJkXHBsYWluXGZ eUmSqWp9HYSzjYsoLFGFzRc RBJ6XCVNPJGIMVWHDTLfBDA v9HNMPUDTzbnNTaDJVaRPUX BnfTAmvqVU9BLLaWLN2PUsz JF9EwUVCONPFBHVMDVHIAUK ICTIWFMpAPIHRVQFTITJ1UY UTzV10WA7zVYRAYSSSVSTIK GFyPL3JYMpqcH3FyOfMPZ3S VUkVccGFyICAgLSBOTyBNQU aQT34YLdNXMHIWYX9gqYTcq GxcwaQuCTcmc7TdNOzqZSJd SX1nlWtaWXQjLZ6oDAHrB5y oaJ7xisr0LbLrXRCiElW4HU GpgpJ3Dbd6YMGwLYsfi2axr 1LyXDVoNJb4kZfwMwMjDXSm e5sihkDrZsWwZSNoJUVqUMJ vjEDtZ525z6yfj4uelzKpjZ G7AJFtROI3WLwhbxUvemO0G UeydHOuInM4FBwgdoHtCNio dvEkrgPiHqn8OUGjV176WME 3fHsrp5rkSWA8CGKxHUAsWi QjXi2ucTZsS145GCFqBMZKR SNicDd4XPAfuxFvwcNlkCVA d954Z035t8cyBWHycyTewLh Dcxxle1paE382VXCajLTvvu ZoOkXkNXMyfTZghSK9RKAhB G3deglyDDjzXEsdKOJkpoR2 ZPCidTTgO2IfXSCtIU8vcmt uQUN7TRzsLFGjVEY6ZuCvZB Jhr1Hqcom7PpPszb8ixu40C GD0r1XroCucVEZ0BAU5LbYo Ci8ucYQvRQWiYN8jHlAlkAV fLHAbwj51lEyuRWclLAA7RJ CzdnEoa8Qjm2dsZkZuqaLqH 2djU3AyICRbRHAwIUHaObHs puOqg9Riw0GopGBxhOf2j4m dLCLdRPVgrHswx8xgRYY3FI MndCPdP3hhbN4dIOJdCB2ov qyvh5ylTRyqBZzfKOBmvEV8 kjE0ZFTluYJuK8UxzQ3tWVD sVApmCPPgnqj3AbMjVv4ivR VyeTcyMFxzYmtwYWdlXHBnb mNvbnRccGduZGVjXHBsYWlu XHBsYWluXGYwXGZzMjRccWx cbGFuZzEwMzNcaGljaFxmMV qcOoIrUGZbJXrjE5anBcXrJ lMnTix1TZWbpBAiNWRuTjc7 DLJxeAIdGDGOmHamaG6nTAF daIzytX9eaZS9XTOccwAksB IHdI5vSQBDaP2nRqU6JcKmJ fU7GZx6QsNruPGozE0= CPT Code(s) (test code k9mhhSRcMCNisEK6GiEoJDH = 3357) ty5xfi9WqzOAnyAUwWTvsqR UijnFild28zZW9wX48UH9cS JIsFmT8QNMkveZ3Fvz8FWPi AQJjvDInM391i3cij2yagwE vdZA6tDbjXUHraanxJwK0IO pqHHZvknbkTLk6TYppGZIqr XH1PEKdvHOnB3EkYPYuIP9v wsb4DWL7TFovHWGcIuL5TQK bmXDuFFXnpPhlNXwwk263UM K4RePgPDOokxSfbFsqrT0gN cMdQMZ4QEJdZDclDNctHSFe cGFyfQ== CLINICAL HISTORY (test p3erhLJcIJFggAV1WnSoOHA code = 3356) tw9pds5RueTBcyWQfMJnuwK QljuUlhk21aDG7xH52NO7nZ NUqXhI0ALOymqE1Zuh3OIZw GXOpdMGlT436k6bii9cxehO rlYP1SYWvHEUoS0BqKO2cMY MapXFhP74vuKGjWRU8EOMzN ECggVBaIXHnOGS3GBIuoLBc Z8fjVGOwQQ0ltnrbXPtzJEr hAYHmhCB2FYLreLCvD6OtJK QmODofTNVfsbl1ExCuYp4rg GVyeTcyMFxwYXJkXHJpMVxw bGFpblxmczIwXGNmMSBSSUd EYBVSDGLeXgIPC1AQOhSlyH FyfQ== SPECIMEN SOURCE (test u4qtrASrDBGpyQQ8SmWgJSL code = 3377) od1zfb6FctPWhhWZxIRmqlT HiwiGlwm49bZX1fA20TV8jK KKuPnD9VIUamcC7Gjo2KFFf XVPcrCRzJ680d4met2iridQ peNQ8aKpyHAMqlxdiMpV2TV mnQOBpqadaFYu7VOxiVXNrp EJ7UTHqtQRwW3MlXBJvQZ3r eyc1WOG3WXipXMDlIpL5NEN dlXNxLPRepNvfZKzkb811QZ P4LkXwWEOqzmCkfQufgJ4tQ gBrUQFVOmQFWS2zlfObNAor BUUkVLStR1f9KGxffS2bqFI yfQ== GROSS DESCRIPTION r4uamCHiOTMkoMQ2AmYmCLU (test code = gd9bbe6XbiGDntXZfYDsaqS [id number]) VoriEdni72bBV9iJ76XW6kD RIpEtR6UIPoazO8Hre3TKUf ZDZccZRnU404g6gao1rcdkJ mwOK6DQNzLOWsM0VtTS3wGE IznGTwX29lwBInXKT1YXQuJ LMolOTfWZMnIXB0VTAnjEHm O2jkRAKcSF4auqdtGJwsJCb tWIRtlAT3NXQjrKGaI8JyZH PfFWjyBJTwgsu9QlXrRd5yl TTpwHmyIOsrDNXui0uoAPYk dUGrJFB7EKcrnXLfOSKkMNV iGXn7YKGbFKdpkAUqXB1gkC ytWjpreMvaw2VslCRpHTfjL EXdPNNvEFsnFYRvL1GWUZTw Zdb9OYqyPyMeVKy3DBixA1F BJRBjKMF6LDR1WLEqPlO2CP g6DMVUQd5nRLk1CdW8YvE0K UQ0GjG7LTcvwAJgRSvmJsze EUpiOLKqwFPbEZtgcvS2GKK zRSlgNBOgYeIcOV7gXpFtb0 JhbCBIZWFkLCBSaWdodCBIa XAuXHBhclxmczIwXGNmMSBS ZWNlaXZlZCBmcmVzaCBsYWJ lbGVkIHdpdGggdGhlIHBhdG ziwlItkwQoQR7xGTKpN3Ezn 2Clg96eliUeMrHeNNOoBNVb jgxogCUjkWkgIYFlaJ1qXYv jmKHqUMZnnKEkZCI7LrMrgD B7XeIoiQVjAkHlI00oMpChb 3JhbCBoZWFkIHdpdGggYSBq GPyaTIQyRWttmI5ecpkiB6z hXUC0jdjeZ5TcMW6collbim 1aLAOaNBMjjiIbQ3ClNGOsy 2XpJkXgTUGcwkYgfX9clEvx mB4zBlezNCw5DCszCL38sTR mPmMkQHnuRBM8rKHdmQGnMJ UbTZmhPTZkig18IMban9pxY QVkBiO4w4AxmIWyYJ2rbjUp ONrtYfEeoYZ1xMFjdVFsL7m eFOS9zaBfIKR6yGK0PWAiNW 8mVMApaw7yYUKSYHDyQSIod pLinCt0MNVmZIQ3xK0suvIo tfYkg4CywUu4zRJsRCaiBZE uTTJkBMDhxIlch0omXnFoHX SnoRWlJmwyHCLdu92rWAohy FqwvPoaYU2ruiirjjEkcrDW YO1xySamKWxknC1sHRXfwRS jMLUuY6QgfEjnbsroDALqJE wVAZwCU7MHBFadWIJkJ2KoU 9PendQ8t9asdMrtn5AzcPNt MJ1xzJQydT== MICROSCOPIC k7ggxOFbKUQxaFL9PcLwOVZ DESCRIPTION (test code mg6dqu2PoaKOcyCFvQKmfzW = 3371) ZerjFipv20zLT0vC09ZY6uX PTcRtX6NKAknnC1Wry0ZEXw CPOhgEXeG319e2bld1qugdO ljYI4mRurLWShvotoJeL4XQ flFOMtxvnmDCr0EOywUOLzv KD3HZNpjMRaW0RaMVFyNR1p ile7PGH5YIbwVCOeAyP2AAU hcDHrONMwnNjmPKtpc275UA C1SdWyVTWeimRsvDfgjT7fG sVbMPGWVQUcu4LlGSRhJNLe cn0= Gross assessment was [facility] performed at ([facility], code = 2777) Department of Pathology, [address] [place] [address], Technical component [facility] was performed at ([facility], code = 2778) Department of Pathology, [address] [place] [id number], Professional component [facility] was performed at ([facility], code = 2779) Department of Pathology, [address] [place] [address], [facility] [id number] 16:40:15 Test Item Value Reference Range Interpretation Comments Case Report (test code Surgical Pathology = 104) Report Case: [id number] Authorizing Provider: Heaven Garza MD Collected: 04/07/2022 03:36 PM Ordering Location: [facility] PERIOPERATIVE Received: 04/07/2022 04:23 PM SERVICES Pathologist: Omari Lroa MD Specimen: Femoral Head, Right Hip DIAGNOSIS (test code = f5tcuJUhDOBfx5ymIEFzyAP 3220) uZzEwMzNcZnRuYmpcdWMxIH tccnRmMVxlcGljOTYwMlxhb uQhRKWmmUFvX9RdxdwnZCqw BN3pCR4bnFxfyHBtaUPwVNS jEhQea3edr823bIDlf8hoIS TKakscrQg4lQgnF20vq1T7J uteC78gbMRtHGD5SBCiECTp fYByKYXbSZX5NKIebGTeK4v kJLWqBV1exwqwXQtvZMaaBA TfnXO5EJTvzKHpM6SqVUEiP AkyMFLmwbn9PhVmBe1guOAb eTcyMFxwYXJkXHBsYWluXGZ zKiSfEf6AQGyiMwmNBPLyPj WMP6BJJQFMLAWHXNFHBnSEW v0UZKJDOKymkHXzIMXbBWYA IyzAYmkpHS1NUGoQXW2DQem AU8RfUHCTQFPBEUPYOSGDOV RNCUTMExZZWYRSMXNHHQ0SZ GPaL11PF9hOCBHQUMLNKLAU YMhAW4OOBhcyG3JmNyMQV1R VUkVccGFyICAgLSBOTyBNQU vEN86LUjUAJQZXYC2uxYGmt XmumkVkWJeao9NsUAjsZMUf XC9ccAiyCSWfPM2bTWUnF7o tbN7yshw3ZsExZVQfMfL8ZA BfdeE6Peg1EPOvOAmck8lls 9HdSDEhGTl8dKlaUsJmDKQl v4dlgpKtThWsXOTaEUOmAVG zuETkJ705s3cpa4qjtmSqwJ C5AWNeDDK2COineqAgncS5P VhhrJTeYvM4RTrwibDzMUos keXrdhYgBrv7ZBXbV354ZOC 6zMgll6kgIGU1LUQhTMMgGo GpQw5ewTWkL008SMRvWHVZE ALgjPi6KEHhqaMlapYycAEE e895Y622q9vtGGWnrfThlQc Azzcvx8oqE020UGMpxGDkwv NgNqZkFYBvxSTivLU1HSXoC V5mphrhCJpcRCpgQSWkdnI2 FRWzsDObC6NgPOPwSF6syrm yUUN4ZOfoQJTkHJU8QjSlJB Rfv6Twekg1KtAzev2xlf07W QI5x8JmqUdhWGI1AFM7NrSg Ig3qdKPaZXHjZX3uCnCusSW qHPLvri00eYfqNCawVGP8YL LpxhTjs3Ilf6hpXyGvkcKzS 9ezY0QpCKVsYJJlUPIlNiPn qeRtt0Jbl7EyiMAyxPr7r8t oTBBfLNJjxHnpp9raRZM9JK QzhAUeG5bvsV6vQSJsVV4pe hkzq7tsOZdeBTjsUBEcvOW5 mlY1WZKzvEWjP2WhfH6aIPI yDRqlNFGmrcc7EpYfWz6dqH VyeTcyMFxzYmtwYWdlXHBnb mNvbnRccGduZGVjXHBsYWlu XHBsYWluXGYwXGZzMjRccWx cbGFuZzEwMzNcaGljaFxmMV kkQkUeBGBpZDlpG6ejDyVzF vSgCin8QYAwcNChNGDjLsr9 SFItqQEjLWXKbUgdzB0mPCS ybLmvhL7mdON6FUOmyjOctF YNoZ5vEEQCoR9cTcV2XzQnY aI8ALl6VmFvuRVhvI5= CPT Code(s) (test code i4mmmZFeQJEhiFT1SbAaBBS = 3357) xt9svc6GtcORaaIXwFEriaK RedhVsrk06yFK1jX44SK6oV LZiYdQ0AYIawvV9Htp5BAEm DPQvdEVuR084t3tsj0esopG dxMB9tWkgBAYajlwqZdZ3UU ndHDUdycsfLRe7VPuiMLWpx LU3YWJxyFFpM1FsLVWbDQ5n ome4PSB8UFkySDEaLaK4KLG maDXhGYXhjMieEFmuw288ST Y1YcSbOFPfoaElhYmfuY6qL rOdNKZ3QDRjCPllRMvpICQq cGFyfQ== CLINICAL HISTORY (test g2jyyZIoVBHwmHT9SmNuCXQ code = 3356) bd1ykt5UkxSOctVGcUUwhuJ TawfSalb29dWY1jG90JT4jF OIkRdR0BKFvkoG2Umb1GTFr VNFbgWVmL084b1jee1skxoY zkCI2XRMnRXSxK8HrNG4zGK ImbRPeY50wkHTrUWU0YNWdF ODsnRKvIVPvXKQ2EYOyqNQf Z8gsYKDbQJ5dfwzzZRmaTMb nKIZwgWA1MIOzgXArU8BrLI WwSDzmCZSvuzv4EoJjJa3ge GVyeTcyMFxwYXJkXHJpMVxw bGFpblxmczIwXGNmMSBSSUd AEDNZUDRvCkKLX8DUHdUwjV FyfQ== SPECIMEN SOURCE (test x9vezQJtKMUleDC1EoTfSSN code = 3377) ae0pem4DupAVkgKMsNEkocG DlwwPmue55lJI1uX31FN1dK NSePtH5LPWnlkC6Lrb9CIZv EPAdkUTbU015a7ctf1ejsoQ qfYY6iJotIAVpbpsgAvM8IP esRRMqzzznXNy7BZqiMYSbh EL4GJVjaEVdJ8PgWVXwXQ7n laf9YQE5ZYoiOKKpYwG1PSE loFZmMDMoqDffUMpdh419XB N0PlXbJQMdchHkpHuipR3qM uQcBCBILxBSUP9jdkHnRWpt VRVnCVJvM1l6SUwibJ4svGU yfQ== GROSS DESCRIPTION b9mppUMuZSLrdEV2PqLzGKI (test code = pn3apv3XkhIVziMFiKRfnlV [id number]) OrtcKmfh86vMU9mO93YS6zI BKiOrF9HXEcafT0Coc0UIXp BNMlcWRxW272r8reg6trofO fqEW2WTHeKKOgX4PfKM9hCA VmiUAnI72znMBsWOY0YAZjR NGcpAGaBZEySVA4OLKmzISu E2mcSQCaIG9pvulkOAohXKg aBXIjzHX0CUVcaERnR8VpRP EtBOaoTTZsyht0OuRyTs6wu IYjkCbmVLclTFDlk3hoKVPi uYQoVSB6KAgrfKCsXZNmYSA lUDl9WSMnVGekhJZaXF2yjY flTrywjAzqr6FskRRwXXaeV PToGYYrMUdbXGGfU5UDZIPx Sqi2VFabXoTtCQv1JWbfU3D LDAIyVFR8BBM5LNSgApS1IG b2ASEDWz5qSKz3XyD7UlM2S OQ6FgK4VQndjIZaLOlvUsaq GSljRTMmkMRsBFhffuS1PLJ lXGyhOSWkGiKxYL7iFcCls0 JhbCBIZWFkLCBSaWdodCBIa XAuXHBhclxmczIwXGNmMSBS ZWNlaXZlZCBmcmVzaCBsYWJ lbGVkIHdpdGggdGhlIHBhdG tfewRtxvQtZF1cHDCpE3Urs 9Vgz41tbzScIvEpSOTeKITt qrbvyBOylCkmAZPpwG7gVXv vlRSnANGniJBpOSJ2EiGedW E4PdWzcXMcUdCtB23mGhYha 3JhbCBoZWFkIHdpdGggYSBq EPrdVGLzGUzwdO9wfugrI0g oJKB1wdcfW5YsDT2gqyvyzg 2rLANqOWLqtoXhZ2OkIAPip 6ZwLcUoIZPhqnTwkH6ptTti bB4cDikyZMu7TRikGH13iPK rJoNfFOfnRKU9sCUkxEDnVH RaWVgvJKJmuo75ZZyyk8oeD QVbInL6s6ObjVXaGX0zozLw BHqtGfPhtEW4zXXdnQApU4m kMFW1hgCyDPA9iGP2PUJhPY 4jPKRusl3cVBCNONMtTGMfa oRcdCz6QZChYJF2uM9bywKl jqVog7KtkYq4nZPdKJjwLIU uINKsFNIpjYqhl3qmAnEjUB FhtYQpOahqOVOya62oRHxqh EgqlJylJD1bnicvsyLurnQO QV4vbKpaTKloxP6zSUYcgJM uBVHmJ3PzdNejibnbYVPzYV lJJBaDU0CUXMcyCUUyD0FsH 7OgelA8s7lbiMggd3SzlIYi QP5ccCOvyX== MICROSCOPIC h3qlrQSmELTwwMS3JeVaUFP DESCRIPTION (test code kq8jcj7VabLIydHLoVKlsxG = 3371) KjtxKnkn83vYE6jI00CD2vE NHmZsE7HBPzmlJ4Jwd6CDDw GIUcxHBnH595n1ujg8fagaL ylGY4rXpxTAHyrgcvQhV0EJ kcYCQlphhuUQh6OAyeBKDrh IW4RGEnpKWtZ4UnBNWdKS6c cvi5RJA4PQhsLJYhHaU6MRO owJFcBNAnoNejMMppt572XD Y9XkEcGRRsiuKblNdxxC9zS sAaEQEGPFGgr2EeSFJoLNYw cn0= Gross assessment was [facility]'s performed at ([facility], code = 2777) Department of Pathology, [address] [place] [address], Technical component [facility] was performed at ([facility], code = 2778) Department of Pathology, [address] [place] [address], Professional component [facility] was performed at ([facility], code = 2779) Department of Pathology, [address] [place] [address], [facility] [id number] 16:40:15 Test Item Value Reference Range Interpretation Comments Case Report (test code Surgical Pathology = 104) Report Case: [id number] Authorizing Provider: Heaven Garza MD Collected: 04/07/2022 03:36 PM Ordering Location: [facility] PERIOPERATIVE Received: 04/07/2022 04:23 PM SERVICES Pathologist: Omari Lora MD Specimen: Femoral Head, Right Hip DIAGNOSIS (test code = h2dzkGCtECZpq7fzPVBdmLI 3220) uZzEwMzNcZnRuYmpcdWMxIH tccnRmMVxlcGljOTYwMlxhb vQtZPIukMKbN2LqdxuiPYrs RA7xVS1zjAjrpOQsaGAmFMC dXyJyo8ikj889gMEyb7mpBY OHzesbiUn3uGkvS86co2G5F yklG78msYYyCJZ6DZTqNDGc uKTzVGJiTQD5OWTgzNTsU8w vNMYhKM1ehwxsRIetIAalRZ IjdQK3EXHvpMVhQ7FpGEPuD TwmYORdfhn9EsDaGi1uzPUi eTcyMFxwYXJkXHBsYWluXGZ jSeOhGg1QRUjkPdwSWAHiEd CXT5KRIBNKQOIIXXGJKcNRZ n0JKWJFMHpexXUyRTQoAJEX HwpKQivjKK2EMQzEAO6LDul IZ2ZdAIIDUPOJNXHQBCCJJB PUKREGBjPRCKHHFKTUXE6VM GSrD05WC3sZRIIUCATPFQUJ IQgTY2NLYnhgW1CtSmEWP0Y VUkVccGFyICAgLSBOTyBNQU pUY23KFbJAPXQACS1mlIRub KqwemLcXNgvo9JrKIjvYZQy QZ6wdRlnLTBkHB5uPEJhV4i kcR7ydjo7EgXrAKBnFeD8OH KavnX1Ori4ONYeDTfpg4hbw 9EjGQSxLFe3sUxhAwHeTCSh y1kpktTnBhCoFPNcQMMmJSV kpOJcX009o1qzn8yeqlHhnQ Z7BTFvKZK9QRqdfvJnalT5K HqogCPeVkE8WFsgkmKcKPxk uvFnwnNzNqh7AGErR284XDY 4dQmgc3luIEA7KQEpNXStNa HvHc1sjGKdH237UAJhDHXBV BRgqMa0ZHZryeUvzzXgjDUE g965S232m8maIINqkwAlwJe Iboozn3mjH295WBWbmPBbyn StNzCjAPVwqOHfpXM1OGGzI J7agsbuEJjeFGthEBXqxxG5 BOBkqPDjH4UyYTGdGD0npkj cALN2QWkcWXZxEBC1HwKhHS Tdg6Vniyv9KgSpdd3qwj68Q VL7y8ZerXiiHJZ7CTH5FuWt Ly9voTFmOZHeMO0oRxEunBE nKRAvor16zDxwFZfkLXQ6UR TdmcJoq2Abh4ofFqXitkFsC 7paX5ExOLHtTVClKGKmSmVk jvUgw0Hls1YksDIgfMr7j4z sRFMbXOPuqLymn1qbDXA2MC EpiJYhA4skuZ5hNOWbNP1lg fkay0ojJQbiFHwlCYZziLJ4 ngU1ZCOswLBcV3LzdU2sISN rXEdpCAIsaij6AgPtQk2jgT VyeTcyMFxzYmtwYWdlXHBnb mNvbnRccGduZGVjXHBsYWlu XHBsYWluXGYwXGZzMjRccWx cbGFuZzEwMzNcaGljaFxmMV ugQvPrFPKyKAtfL7ibRzFzL nHlZpe5JECunZRpIGEiOxe8 TGHumDKpPRZTbCrdjB1dROR sxTiydJ8seDT7QVTkvgWnzQ RHhS2dNOFHwE9lHhK5ZqNdM mL5RUd4HaFlaLRrwG7= CPT Code(s) (test code j2wwmZOqTZCywAF8WuUiSMQ = 3357) sn6vmd1YcpCTenOKpXDbuwG WuluTtua05wTR8pZ80AM0hD XTwJdF8ABJhqxW6Ohd4AJBx SMVerAXbV079r5tcq3ttraD ppYD9mKkyMWAgbrgaRkO0UR unIKQyfuzzRNx6UFqlWHQvn RZ1BAWmsQIwQ1KjUCMeYS8u cai5ZLT2FSxhOMUjPzO1IPO rqOMhYMUrqIclZJuqz618BO E3IxOxHGFhciQxbWwwuB8cE oBmMZQ5YJJaUPelRZbtQABw cGFyfQ== CLINICAL HISTORY (test u1pgeBUqMYJlmQU7EgNuGZN code = 3356) za0nzh0KwtTTbaYSiIYwabM KggiUeob71mQE4cH83BR6pY OKtFpW0OMAbvwO1Jzs8CVUw IQAxjQVdB977r9rvx9zjneG twYO5KXVpGKJrA9YjQT3mBI ItaWJvI33urQDgYKV8URNiI TVxdXDuMRAaOVQ8PYSfrQPp C2jyIYXhGZ4hxpkqFYhwQJn iRXDoqAA9KIPeoOXuK2NqZC MlPMqxOSButog2ThTtAl5ss GVyeTcyMFxwYXJkXHJpMVxw bGFpblxmczIwXGNmMSBSSUd UJKCSTWVuQxTMK3FOCjWxfU FyfQ== SPECIMEN SOURCE (test e1qzdJXcRZNndXC2UfIdLPI code = 3377) zu4xcz0UslVGasQFeMLnyrP IeahOode08nOV6sC63KJ9qY IQaWcI9GOMdgbF0Akf0LJQy XFRccBOeL339v8imo5jgqvD bzGM3cZeiRIPyxzziKwJ8LU zkBKBmxdtwOHh2BWwnLXNfg KN4SFNwcIGxW5KvFEIzNB7o otz5IOB5DBpoHWAjYgH9ABW dbBTlQTUmaHpxUZxss237WK C4DvCvBYXhahRwaCnspF3fF sZmNRULUeQWDW5qmcRjMAsy DHWjTBLwX8k5RXddeM4uzDQ yfQ== GROSS DESCRIPTION y5arbKWgHUVyiDS1UmYyKEA (test code = mk7gdf1FqzBRmmJQrSUnqhB [id number]) DiufRwzd93tUX7yK87TL4sJ LRaCaH2RDLkohY7Kzv7ZZAh YDDpjGUdX234f0vbl2mixuQ byEJ9HRNuPFPuV6DiSI8qBT GqsBVeO00hcYDxPUL7HTGuU PVncPWvFEKtNZZ4TTEzvDSw Z7nzKBBjAB4ytugsPBwcYRc nWREnhPP3UEPjmLCrS4JeQM BvHZybMSWkbtz2FjHsUi2vd YJlgKftTBsgEFDca4xqLJYq dNJeOZL8VSsbgJGaGUNnEGR bVBi0KEQiQQxstONiOZ9mvF fwXlqclLobe9IpnXNjYVyqZ IBwLGBoFFbiPPGgH5YSVOHl Hdj0SXppJjIiALe6EWbzF9K DPPRmFEB4DGL3OOXlUpF7NY f7AKGRId0wNNi9TuN7HyW0M MA8YzV7DMtvnZSfYYcqAklj OWhxAQCjhDAfVHylpqD8JIW fATimZKUkDzUaAT4sEvWrg6 JhbCBIZWFkLCBSaWdodCBIa XAuXHBhclxmczIwXGNmMSBS ZWNlaXZlZCBmcmVzaCBsYWJ lbGVkIHdpdGggdGhlIHBhdG sspuWlruFhOL0pTRQxK4Rvt 6Iet46dwbYiQsBuEZIrFOZw gamqtNCthFddJZSvlZ7yOBp wwKTeOWChuRKbHGM8XlMzhK W9ByTljUUtDuRmJ77cHaFjo 3JhbCBoZWFkIHdpdGggYSBq IXrsSZRlZTupwL5zdqtrY1f oCHR1haplG0RpSQ8hhazpfx 8oTDNaCMNjfqFjQ6MfGOQci 8YfAaHuBQEvezWvxM9ywAoy pJ3yHexgVRc2QYbhCZ13oJC tTaIlTLimONZ0wABpzUBwRL PsPUrlMUFopx38WKrab3dbS XVbBzC7c0MluFQeQU7vcwIw WZxfCvDxpXQ6iFRdoIMkD9t fQMH3vlEuGEE4hOY8QIItDC 2aJMRzkf0gRJBIIEImGVVqp qOigMf0ALFvCSL3vD7daaIw eoQyn5EhyQr0xRNiXXrtYPC xYKUiFJVxwGkqh6ziAiDtQC TtjINhBdvhABDor73sNEqji MbljCpbBP4wgmkufrUimdMK RP1bnHmmAIcplT0fAXYstJW kCJIxD1ElzSlnbhedSEMiOU nZDTfSI5LMJWijCQQhJ4JbW 2JblqZ0z7izbKafq6IfoWTl FT8enKYwzX== MICROSCOPIC d3yemLYfOCTniXB2TyQlIRP DESCRIPTION (test code yv5fit9ZziXOytNGbSGqfwK = 3371) CuyzNnsg74aCV5bS29QO5hU CVoIlW8POYsilU7Ihd0ELTv QXBoxIYoB523q5lrv7cleuQ daNI4tFrtIOLqdpyqVtE8ZU ckFJTwmffnHGt7ZVlnAFKgg CH4JRSxxGTaK5ZyCZGpCX8z vhw3XDL0CRujIQAzSzD0FJT cdSSpMXSqkHiyRFguy149DW Z5QbSaXGRgmuOxeKmacM6sH jWkDOESPAPlq9GfFEOaXWUf cn0= Gross assessment was [facility] performed at ([facility], code = 2777) Department of Pathology, [address] [place] [address], Technical component [facility] was performed at ([facility], code = 2778) Department of Pathology, [address] [place], [place] [address], Professional component [facility]. ke's was performed at ([facility], code = 2779) Department of Pathology, [address] [place] [address], [facility] [id number] 16:40:15Surgical Pathology Report Case: [id number] Authorizing Provider: Heaven Garza MD Collected: 04/07/2022 03:36 PM Ordering Location: [facility] PERIOPERATIVE Received: 04/07/2022 04:23 PM SERVICES Pathologist: Omari Lora MD Specimen: Femoral Head, Right Hip BONE, RIGHT FEMORAL HEAD, ARTHROPLASTY- ORGANIZING HEMORRHAGE, REACTIVE AND REPARATIVE CHANGES CONSISTENT WITH HISTORY OF FRACTURE - NO MALIGNANCY SEEN Signing Pathologist Direct Phone Line: [phone] signed by Omari Lora MD on 04/14/2022 at 4:40 [id number], [id number] HIP FRACTUREA. Femoral Head, Right Hip.A. Femoral Head, Right Hip.Received fresh labeled with the patient's name, accession number and "right hip femoral head" is a 4.0 x 4.0 x 3.0 cm femoral head with a jagged, hemorrhagic surgical margin. The articular s urface is smooth to finely granular. The cut surface is zurita-yellow, diffusely hemorrhagic at the margin, trabeculated and firm. Area Plant Manager sections are submitted in A1-A3 following decalcification,with the margin in A1.HANNAH Cox, HT (ASCP)Performed.[facility], Department of Pathology, [address] [place] [address], [facility], Department of Pathology, [address] [place] [address], [facility], Department of Pathology, [address] [place] [address], SUAW-CoV2/RT-PCR (Asymptomatic ONLY)2022-04-13 17:25:46 Test Item Value Reference Interpretation Comments Range SARS-COV2/RT-PCR Negative Negative The SARS-Co V-2 (test code = target nucleic 22376-7) acids are not detected in thi s [...] revoked sooner. Fact Sheet for Healthcare Providers: https://www.[employer]/Documents/Xp ert%20Xpress%20SAR S%20CoV-2/Fact%20S heets/302-3802%20S ARS-COV-2%20HEALTH CARE%20PROVIDERS%2 0FACT%20SHEET.pdf Fact Sheet for Healthcare Patients: https://www[employer]/Documents/Xp ert%20Xpress%20SAR S%20CoV-2/Fact%20S heets/302-3801%20S ARS-COV-2%20PATIEN T%20FACT%20SHEET.p df Lab Interpretation Normal (test code = 92813-2) [facility]2022-04-13 17:25:46 Test Item Value Reference Interpretation Comments Range SARS-COV2/RT-PCR Negative Negative The SARS-Co V-2 (test code = target nucleic 39324-2) acids are not detected in thi s [...] revoked sooner. Fact Sheet for Healthcare Providers: https://www.[employer]/Documents/Xp ert%20Xpress%20SAR S%20CoV-2/Fact%20S heets/302-3802%20S ARS-COV-2%20HEALTH CARE%20PROVIDERS%2 0FACT%20SHEET.pdf Fact Sheet for Healthcare Patients: https://www.[employer]/Documents/Xp ert%20Xpress%20SAR S%20CoV-2/Fact%20S heets/302-3801%20S ARS-COV-2%20PATIEN T%20FACT%20SHEET.p df Lab Interpretation Normal (test code = 84395-7) [facility]omatic [facility]2022-04-13 17:25:46 Test Item Value Reference Interpretation Comments Range SARS-COV2/RT-PCR Negative Negative The SARS-Co V-2 (test code = target nucleic 71021-9) acids are not detected in thi s [...] revoked sooner. Fact Sheet for Healthcare Providers: https://www.[employer]/Documents/Xp ert%20Xpress%20SAR S%20CoV-2/Fact%20S heets/302-3802%20S ARS-COV-2%20HEALTH CARE%20PROVIDERS%2 0FACT%20SHEET.pdf Fact Sheet for Healthcare Patients: https://www.[employer]/Documents/Xp ert%20Xpress%20SAR S%20CoV-2/Fact%20S heets/302-3801%20S ARS-COV-2%20PATIEN T%20FACT%20SHEET.p df Lab Interpretation Normal (test code = 15981-1) [facility]2022-04-13 17:25:46 Test Item Value Reference Interpretation Comments Range SARS-COV2/RT-PCR Negative Negative The SARS-Co V-2 (test code = target nucleic 04822-3) acids are not detected in thi s [...] revoked sooner. Fact Sheet for Healthcare Providers: https://www.[employer]/Documents/Xp ert%20Xpress%20SAR S%20CoV-2/Fact%20S heets/302-3802%20S ARS-COV-2%20HEALTH CARE%20PROVIDERS%2 0FACT%20SHEET.pdf Fact Sheet for Healthcare Patients: https://www.[employer]/Documents/Xp ert%20Xpress%20SAR S%20CoV-2/Fact%20S heets/302-3801%20S ARS-COV-2%20PATIEN T%20FACT%20SHEET.p df Lab Interpretation Normal (test code = 48658-8) [facility]2022-04-13 17:25:46 Test Item Value Reference Interpretation Comments Range SARS-COV2/RT-PCR Negative Negative The SARS-Co V-2 (test code = target nucleic 66381-0) acids are not detected in thi s [...] revoked sooner. Fact Sheet for Healthcare Providers: https://www.[employer]/Documents/Xp ert%20Xpress%20SAR S%20CoV-2/Fact%20S heets/302-3802%20S ARS-COV-2%20HEALTH CARE%20PROVIDERS%2 0FACT%20SHEET.pdf Fact Sheet for Healthcare Patients: https://www.[employer]/Documents/Xp ert%20Xpress%20SAR S%20CoV-2/Fact%20S heets/302-3801%20S ARS-COV-2%20PATIEN T%20FACT%20SHEET.p df Lab Interpretation Normal (test code = 70376-2) [facility]omatic [facility]2022-04-13 17:25:46 Test Item Value Reference Interpretation Comments Range SARS-COV2/RT-PCR Negative Negative The SARS-Co V-2 (test code = target nucleic 10598-2) acids are not detected in thi s [...] revoked sooner. Fact Sheet for Healthcare Providers: https://www.[employer]/Documents/Xp ert%20Xpress%20SAR S%20CoV-2/Fact%20S heets/302-3802%20S ARS-COV-2%20HEALTH CARE%20PROVIDERS%2 0FACT%20SHEET.pdf Fact Sheet for Healthcare Patients: https://www.[employer]/Documents/Xp ert%20Xpress%20SAR S%20CoV-2/Fact%20S heets/302-3801%20S ARS-COV-2%20PATIEN T%20FACT%20SHEET.p df Lab Interpretation Normal (test code = 66472-9) [facility]13 17:25:46 Test Item Value Reference Interpretation Comments Range SARS-COV2/RT-PCR Negative Negative The SARS-Co V-2 (test code = target nucleic 05882-0) acids are not detected in thi s [...] revoked sooner. Fact Sheet for Healthcare Providers: https://www.[employer]/Documents/Xp ert%20Xpress%20SAR S%20CoV-2/Fact%20S heets/302-3802%20S ARS-COV-2%20HEALTH CARE%20PROVIDERS%2 0FACT%20SHEET.pdf Fact Sheet for Healthcare Patients: https://www.[employer]/Documents/Xp ert%20Xpress%20SAR S%20CoV-2/Fact%20S heets/302-3801%20S ARS-COV-2%20PATIEN T%20FACT%20SHEET.p df Lab Interpretation Normal (test code = 33211-0) [facility]2022-04-13 17:25:46 Test Item Value Reference Range Interpretation Comments SARS-COV2/RT-PCR Negative Negative The SARS-Co V-2 target (test code = nucleic acids a re not 0065493) detected in thi s specimen. Negative result [...] revoked sooner. Fact Sheet for Healthcare Providers: https://www.[employer]/Documents/Xpert%20Xpress%20SARS%20CoV-2/Fact%20Sheets/302-3802%32RLJN-BDS-8%20 HEALTHCARE%20PROVIDERS%20FACT%20SHEET.pdf Fact Sheet for Healthcare Patients: https://www.[employer]/Documents/Xpert%20Xp ress%20SARS%20CoV-2/Fact%20Sheets/3023801%86DIXJ-NRT-2%20PATIENT%20FACT%20SHEET .pdfBLOOD [id number] 17:00:19 Test Item Value Reference Range Interpretation Comments CULTURE (BEAKER) (test No growth in 5 days code = 1095) BLOOD [id number] 17:00:19 Test Item Value Reference Range Interpretation Comments CULTURE (BEAKER) (test No growth in 5 days code = 1095) POC-Glucose [id number] 15:34:27 Test Item Value Reference Range Interpretation Comments POC-Glucose Meter (test 129 mg/dL 70-110 H : TE STED AT [facility] code = 1538) [address] [place] [address], [facility]: Cane Furniture Maker/Techni aldo ID = [id number] for Desmond, Lina Lab Interpretation (test Abnormal code = 04119-2) [facility]-Glucose [id number] 15:34:27 Test Item Value Reference Range Interpretation Comments POC-Glucose Meter (test 129 mg/dL 70-110 H : TE STED AT [facility] code = 1538) [address] [place] [address], 770 30: [employer] Maker/Techni aldo ID = [id number] for Desmond, Lina Lab Interpretation (test Abnormal code = 41572-4) [facility] [id number] 15:34:27 Test Item Value Reference Range Interpretation Comments POC-Glucose Meter (test 129 mg/dL 70-110 H : TE STED AT [facility] code = 1538) [address] [place] [address], 770 30: [employer] Furn[employer] Maker/Techni aldo ID = [id number] for Desmond, Lina Lab Interpretation (test Abnormal code = 92748-0) [facility]-Glucose [id number] 15:34:27 Test Item Value Reference Range Interpretation Comments POC-Glucose Meter (test 129 mg/dL 70-110 H : TE STED AT [facility] code = 1538) [address] [place] [address], [facility]: [employer] Maker/Techni aldo ID = [id number] for Desmond, Lina Lab Interpretation (test Abnormal code = 37502-8) [facility] [id number] 15:34:27 Test Item Value Reference Range Interpretation Comments POC-Glucose Meter (test 129 mg/dL 70-110 H : TE STED AT [facility] code = 1538) [address] [place] [address], 770 30: [employer] Maker/Techni aldo ID = [id number] for Desmond, Lina Lab Interpretation (test Abnormal code = 14821-0) [facility] [id number] 15:34:27 Test Item Value Reference Range Interpretation Comments POC-Glucose Meter (test 129 mg/dL 70-110 H : TE STED AT [facility] code = 1538) [address] [place] [address], 770 30: [employer] Maker/Techni aldo ID = [id number] for Desmond, Lina Lab Interpretation (test Abnormal code = 69956-9) [facility]-Glucose [id number] 15:34:27 Test Item Value Reference Range Interpretation Comments POC-Glucose Meter (test 129 mg/dL 70-110 H : TE STED AT [facility] code = 1538) [address] [place] [address], 770 30: [employer] Maker/Techni aldo ID = [id number] for Desmond, Lina Lab Interpretation (test Abnormal code = 19493-9) [facility]-GLUCOSE [id number] 15:34:27 Test Item Value Reference Range Interpretation Comments POC-GLUCOSE METER 129 mg/dL 70-110 H : TESTED A T [facility] 6720 (BEAKER) (test code = [facility], 1538) [address]: [employer] Furn[employer] Maker/Techni aldo ID = [id number] for Br yant, Lina POCT-GLUCOSE [id number] 11:44:07 Test Item Value Reference Range Interpretation Comments POC-GLUCOSE METER 118 mg/dL 70-110 H : TESTED A T [facility] 6720 (BEAKER) (test code = [facility], 1538) 26781: [employer] Furn[employer] Maker/Techni aldo ID = [id number] for Br yant, Lina POCT-GLUCOSE [id number] 08:00:15 Test Item Value Reference Range Interpretation Comments POC-GLUCOSE METER 114 mg/dL 70-110 H : TESTED A T [facility] 67[address] (BEAKER) (test code = [facility] [place], 1538) 25063: Cane Furniture Maker/Techni aldo ID = [id number] for Lina Dotson [id number] 05:48:59 Test Item Value Reference Range Interpretation Comments MAGNESIUM (BEAKER) 2.0 mg/dL 1.6-2.6 Specimen slightly (test code = 627) hemolyzed [employer] ID - PIAYA [id number] 05:48:59 Test Item Value Reference Range Interpretation Comments PHOSPHORUS (BEAKER) 3.9 mg/dL 2.3-4.7 Specimen slightly (test code = 604) hemolyzed [employer] ID - PIAYA LBASIC METABOLIC [id number] 05:48:59 Test Item Value Reference Range Interpretation [...] not appl icable for dialysis patien ts [employer] Furn[employer] Maker ID - PIAYA [id number] (HEMOGRAM ONLY)2022-04-13 04:52:27 [...] 0-0 (BEAKER) (test code = 413) POCT-GLUCOSE [id number] 21:03:16 Test Item Value Reference Range Interpretation Comments POC-GLUCOSE METER 111 mg/dL 70-110 H : TESTED A T [facility] 6720 (BEAKER) (test code = [facility], 1538) 34049: Cane Furniture Maker/Techni aldo ID = [id number] for Liya Etien[place]a POCT-GLUCOSE [id number] 15:53:40 Test Item Value Reference Range Interpretation Comments POC-GLUCOSE METER 133 mg/dL 70-110 H : TESTED A T [facility] 6720 (BEAKER) (test code [facility], = 1538) 05474: Cane Furniture Maker/Techni adlo ID = [id number] for SANDRA Bradshaw POCT-GLUCOSE [id number] 12:54:17 Test Item Value Reference Range Interpretation Comments POC-GLUCOSE METER 130 mg/dL 70-110 H : TESTED A T [facility] 6720 (BEAKER) (test code [facility], = 1538) 33130: Cane Furniture Maker/Techni aldo ID = [id number] for SANDRA Bradshaw GUERRERO POCT-GLUCOSE [id number] 08:18:20 Test Item Value Reference Range Interpretation Comments POC-GLUCOSE METER 116 mg/dL 70-110 H : TESTED A T [facility] 6720 (BEAKER) (test code [facility], = 1538) 78148: Cane Furniture Maker/Techni aldo ID = [id number] for SANDRA Bradshaw BASIC METABOLIC [id number] 04:23:08 Test Item Value Reference Range Interpretation [...] not appl icable for dialysis patien ts [employer] Furn[employer] Maker ID - ELVIN [id number] 04:23:08 Test Item Value Reference Range Interpretation Comments MAGNESIUM (BEAKER) (test code = 2.0 mg/dL 1.6-2.6 627) [employer] ID - ELVIN [id number] 04:23:08 Test Item Value Reference Range Interpretation Comments PHOSPHORUS (BEAKER) (test code = 2.6 mg/dL 2.3-4.7 604) [employer] ID - ELVIN WCBC (HEMOGRAM ONLY)2022-04-12 04:05:05 Test Item [...] 0-0 (BEAKER) (test code = 413) POCT-GLUCOSE [id number] 20:52:48 Test Item Value Reference Range Interpretation Comments POC-GLUCOSE METER 151 mg/dL 70-110 H : TESTED A T [facility] 6720 (BEAKER) (test code = [place], 1538) 58776: Cane Furniture Maker/Techni aldo ID = [id number] for [place] LLIAMS, SLIM POCT-GLUCOSE [id number] 16:09:14 Test Item Value Reference Range Interpretation Comments POC-GLUCOSE METER 130 mg/dL 70-110 H : TESTED A T [facility] 6720 (BEAKER) (test code = [facility], 1538) 28889: Cane Furniture Maker/Techni aldo ID = [id number] for Ruslan Powell POCT-GLUCOSE [id number] 11:25:47 Test Item Value Reference Range Interpretation Comments POC-GLUCOSE METER 99 mg/dL 70-110 : TESTED A T [facility] 6720 (BEAKER) (test code = FOR[place]ATO Kaba [facility], 1538) 93975: Cane Furniture Maker/Techni aldo ID = [id number] for Ruslan Magana Urine [id number] 08:48:43 Test Item Value Reference Range Interpretation Comments Result (test code = 6463-4) [facility] [id number] 08:48:43 Test Item Value Reference Range Interpretation Comments Result (test code = 6463-4) No growth [facility] [id number] 08:48:43 Test Item Value Reference Range Interpretation Comments Result (test code = 6463-4) No growth [facility] [id number] 08:48:43 Test Item Value Reference Range Interpretation Comments Result (test code = 6463-4) No growth [facility] [id number] 08:48:43 Test Item Value Reference Range Interpretation Comments Result (test code = 6463-4) No growth [facility] [id number] 08:48:43 Test Item Value Reference Range Interpretation Comments Result (test code = 6463-4) No growth [facility] [id number] 08:48:43 Test Item Value Reference Range Interpretation Comments Result (test code = 6463-4) No growth [facility] [id number] 08:48:43 Test Item Value Reference Range Interpretation Comments CULTURE (BEAKER) (test code = 1095) No growth POCT-GLUCOSE [id number] 07:40:08 Test Item Value Reference Range Interpretation Comments POC-GLUCOSE METER 96 mg/dL 70-110 : TESTED A T [facility] 6720 (BEAKER) (test code = [place], 1538) 30544: Cane Furniture Maker/Techni aldo ID = [id number] for Ruslan Magana [id number] 06:30:09 Test Item Value Reference Range Interpretation Comments PHOSPHORUS (BEAKER) (test code = 2.2 mg/dL 2.3-4.7 L 604) Cane Furniture Maker ID - MIMI GBASIC METABOLIC [id number] 06:30:08 Test Item Value Reference Range Interpretation [...] not appl icable for dialysis patien ts Cane Furniture Maker ID - MIMI [id number] 06:30:08 Test Item Value Reference Range Interpretation Comments MAGNESIUM (BEAKER) (test code = 2.1 mg/dL 1.6-2.6 627) Cane Furniture Maker ID - MIMI GCBC (HEMOGRAM ONLY)2022-04-11 05:58:00 [...] 0-0 (BEAKER) (test code = 413) POCT-GLUCOSE [id number] 21:31:00 Test Item Value Reference Range Interpretation Comments POC-GLUCOSE METER 117 mg/dL 70-110 H : TESTED A T [facility] 6720 (BEAKER) (test code = [facility], 153) 49188: Cane Furniture Maker/Techni aldo ID = [id number] for SLIM VICTOR POCT-GLUCOSE [id number] 16:59:44 Test Item Value Reference Range Interpretation Comments POC-GLUCOSE METER 110 mg/dL 70-110 : TESTED A T [facility] 6720 (BEAKER) (test code = [facility], 153) 30167: Cane Furniture Maker/Techni aldo ID = [id number] for RA MOS, DARLINE POCT-GLUCOSE [id number] 11:22:31 Test Item Value Reference Range Interpretation Comments POC-GLUCOSE METER 156 mg/dL 70-110 H : TESTED A T [facility] 6720 (BEAKER) (test code = [place], 1538) 91580: Cane Furniture Maker/Techni aldo ID = [id number] for RA MOS, DARLINE POCT-GLUCOSE [id number] 07:51:14 Test Item Value Reference Range Interpretation Comments POC-GLUCOSE METER 113 mg/dL 70-110 H : TESTED A T [facility] 6720 (BEAKER) (test code = [place] Kaba [facility], 1538) 34064: Cane Furniture Maker/Techni aldo ID = [id number] for RA MOS, DARLINE [id number] 06:43:13 Test Item Value Reference Range Interpretation Comments MAGNESIUM (BEAKER) 2.0 mg/dL 1.6-2.6 Specimen slightly (test code = 627) hemolyzed Cane Furniture Maker ID - HUMBLE [id number] 06:43:13 Test Item Value Reference Range Interpretation Comments PHOSPHORUS (BEAKER) 2.1 mg/dL 2.3-4.7 L Specimen slightly (test code = 604) hemolyzed Cane Furniture Maker ID - HUMBLE MBASIC METABOLIC [id number] 06:43:13 Test Item Value Reference Range Interpretation [...] not appl icable for dialysis patien ts Cane Furniture Maker ID - HUMBLE MCBC (HEMOGRAM ONLY)2022-04-10 06:18:00 [...] (BEAKER) (test code = 413) Prepare Leuko-Red [id number] 23:54:00 Test Item Value Reference Range Interpretation Comments CROSSMATCH (test code = 2264) COMPATIBLE Unit ABO (test code = O Pos 5254804) UNIT NUMBER (test code = [id number] 934-0) Status (test code = 4874726) TX_TIMEINCHART Blood Bank Product (test code RED BLOOD CELLS = 2263) PRODUCT CODE (test code = [id number] 933-2) [facility] [id number] 23:54:00 Test Item Value Reference Range Interpretation Comments CROSSMATCH (test code = 2264) COMPATIBLE Unit ABO (test code = O Pos 0840726) UNIT NUMBER (test code = [id number] 934-0) Status (test code = 8486736) TX_TIMEINCHART Blood Bank Product (test code RED BLOOD CELLS = 2263) PRODUCT CODE (test code = X2955H47 933-2) [facility] [id number] 23:54:00 Test Item Value Reference Range Interpretation Comments CROSSMATCH (test code = 2264) COMPATIBLE Unit ABO (test code = O Pos 3058519) UNIT NUMBER (test code = [id number] 934-0) Status (test code = 1480505) TX_TIMEINCHART Blood Bank Product (test code RED BLOOD CELLS = 2263) PRODUCT CODE (test code = Y5670G10 933-2) [facility] [id number] 23:54:00 Test Item Value Reference Range Interpretation Comments CROSSMATCH (test code = 2264) COMPATIBLE Unit ABO (test code = O Pos 7750357) UNIT NUMBER (test code = [id number] 934-0) Status (test code = 5570543) TX_TIMEINCHART Blood Bank Product (test code RED BLOOD CELLS = 2263) PRODUCT CODE (test code = F4335C31 933-2) [facility] Leuk[facility]Red [id number] 23:54:00 Test Item Value Reference Range Interpretation Comments CROSSMATCH (test code = 2264) COMPATIBLE Unit ABO (test code = O Pos 0133681) UNIT NUMBER (test code = [id number] 934-0) Status (test code = 2374430) TX_TIMEINCHART Blood Bank Product (test code RED BLOOD CELLS = 2263) PRODUCT CODE (test code = H6204W01 933-2) [facility] [id number] 23:54:00 Test Item Value Reference Range Interpretation Comments CROSSMATCH (test code = 2264) COMPATIBLE Unit ABO (test code = O Pos 4518526) UNIT NUMBER (test code = [id number] 934-0) Status (test code = 6478277) [facility] Blood Bank Product (test code RED BLOOD CELLS = 2263) PRODUCT CODE (test code = X2150E20 933-2) [facility]Red [id number] 23:54:00 Test Item Value Reference Range Interpretation Comments CROSSMATCH (test code = 2264) COMPATIBLE Unit ABO (test code = O Pos 9846530) UNIT NUMBER (test code = [id number] 934-0) Status (test code = 0503306) [facility] Blood Bank Product (test code RED BLOOD CELLS = 2263) PRODUCT CODE (test code = N4751X26 933-2) [facility] [id number] 23:08:16 Test Item Value Reference Range Interpretation Comments POC-GLUCOSE METER 119 mg/dL 70-110 H : TESTED A T [facility] 6720 (BEAKER) (test code = [facility], 1538) 81468: Cane Furniture Maker/Techni aldo ID = [id number] for Paris Lipscomb POCT-GLUCOSE [id number] 17:18:13 Test Item Value Reference Range Interpretation Comments POC-GLUCOSE METER 172 mg/dL 70-110 H : TESTED A T [facility] 6720 (BEAKER) (test code = [facility], 1538) 71095: Cane Furniture Maker/Techni aldo ID = [id number] for YLNDON USAMAWINNIE ROTHMAN CBC (HEMOGRAM ONLY)2022-04-09 16:39:21 Test Item [...] 0-0 (BEAKER) (test code = 413) POCT-GLUCOSE [id number] 11:54:11 Test Item Value Reference Range Interpretation Comments POC-GLUCOSE METER 182 mg/dL 70-110 H : [facility] A T [facility] 6720 [facility] (test code = [facility], 1538) 33235: Cane Furniture Maker/Techni aldo ID = [id number] for DE NNWINNIE ROTHMAN POCT-GLUCOSE [id number] 07:49:48 Test Item Value Reference Range Interpretation Comments POC-GLUCOSE METER 139 mg/dL 70-110 H : TESTED A T [facility] 6720 (AKER) (test code = [facility], 1538) 28104: Cane Furniture Maker/Techni aldo ID = [id number] for DE NNIS, WINNIE Venous doppler legs [id number] 07:38:03Ejection FractionSLEH ECHO HEARTLAB MKCKESSON [facility] bilateral 2022-04-09 07:38:03Ejection FractionSLEH ECHO HEARTLAB MKCKESSON [facility] legs [id number] 07:38:03Ejection FractionSLEH ECHO HEARTLAB MKCKESSON [facility] legs [id number] 07:38:03Ejection FractionSLEH ECHO HEARTLAB MKCKESSON [facility] legs bilateral 2022-04-09 07:38:03Ejection FractionSLEH ECHO HEARTLAB [facility]Ven[facility] do[facility] legs [id number] 07:38:03Ejection FractionSLEH ECHO [facility]ARTLAB [facility] legs [id number] 07:38:03Ejection FractionSLEH ECHO HEARTLAB [facility]2022-07-29 06:41:32 Test Item Value Reference Range Interpretation Comments PHOSPHORUS (BEAKER) (test code = 2.5 mg/dL 2.3-4.7 604) Cane Furniture Maker ID - ELVIN WBASIC METABOLIC [id number] 06:41:31 Test Item Value Reference Range Interpretation [...] not appl icable for dialysis patien ts Cane Furniture Maker ID Carlo OCONNOR [id number] 06:41:31 Test Item Value Reference Range Interpretation Comments MAGNESIUM (BEAKER) (test code = 4.3 mg/dL 1.6-2.6 H 627) Cane Furniture Maker AMANDA OCONNOR WCBC W/PLT COUNT & AUTO [id number] 06:12:33 Test Item Value Reference Range Interpretation [...] PERCENT (BEAKER) (test code = 2801) POCT-GLUCOSE [id number] 00:19:02 Test Item Value Reference Range Interpretation Comments POC-GLUCOSE METER 144 mg/dL 70-110 H : TESTED A T [facility] 6720 (BEAKER) (test code = [place], 1538) 75812: Cane Furniture Maker/Techni aldo ID = [id number] for Sp Ashwin morales RAD, PELVIS, 1 OR 2 [id number] 23:03:00Reason for exam:->postop R hip hemion floor as not done in pacuShould this be performed at the bedside?->Yes [facility] : 1950 Sex: FFINAL REPORT [...] Peralta Verified Date/Time: 04/08/2022 23:03:37 BASIC METABOLIC [id number] 22:31:44 Test Item Value Reference Range Interpretation [...] not appl icable for dialysis patien ts Cane Furniture Maker ID - [id number] 22:31:14 Test Item Value Reference Range Interpretation Comments MAGNESIUM (BEAKER) (test code = 1.6 mg/dL 1.6-2.6 627) Cane Furniture Maker ID - [id number] 22:31:14 Test Item Value Reference Range Interpretation Comments PHOSPHORUS (BEAKER) (test code = 2.0 mg/dL 2.3-4.7 L 604) Cane Furniture Maker ID - BSLACTIC ACID, [id number] 22:23:33 Test Item Value Reference Range Interpretation Comments LACTATE BLOOD VENOUS (2) (BEAKER) 1.96 mmol/L 0.50-2.20 (test code = 2037) Cane Furniture Maker ID - BSCBC (HEMOGRAM ONLY)2022-04-08 22:07:28 Test [...] = 413) CBC W/PLT COUNT & AUTO [id number] 18:40:26 Test Item Value Reference Range Interpretation [...] (BEAKER) (test code = 2801) LACTIC ACID, [id number] 16:35:30 Test Item Value Reference Range Interpretation Comments LACTATE BLOOD VENOUS (2) (BEAKER) 3.04 mmol/L 0.50-2.20 H (test code = 5136) Cane Furniture Maker ID - BSBASIC METABOLIC [id number] 16:24:06 Test Item Value Reference Range Interpretation [...] not appl icable for dialysis patien ts Cane Furniture Maker ID - ADMINRAD, CHEST, 1 VIEW, NON [id number] 16:12:00Reason for exam:->dyspneaShould this be performed at the bedside?->Yes [facility] : 1950 Sex: FFINAL REPORT CLINICAL HISTORY: dyspnea TECHNIQUE: 1 view of the chest. COMPARISON: None IMPRESSION: There are no focal infiltrates or effusions. The cardiomediastinal silhouette is magnified by technique. The osseous structures appear intact. Signed: Derrick Ignacio MDReport Verified Date/Time: 04/08/2022 16:12:21 Reading Location: [facility] Radiology Reading Room POCT-GLUCOSE METER 2022-04-08 15:31:41 Test Item Value Reference Range Interpretation Comments POC-GLUCOSE METER 208 mg/dL 70-110 H : TESTED A T [facility] 6720 (BEAKER) (test code = Easy Tempo [facility], 1538) 42139: Cane Furniture Maker/Techni aldo ID = [id number] for Jossy Hernandesa POCT-GLUCOSE [id number] 11:42:48 Test Item Value Reference Range Interpretation Comments POC-GLUCOSE METER 240 mg/dL 70-110 H : TESTED A T [facility] 6720 (BEAKER) (test code = [employer] [facility], 1538) 98812: Cane Furniture Maker/Techni aldo ID = [id number] for Ma ster, Evangelina CT, EXTREMITY, LOWER WITHOUT CONTRAST, [id number] 08:41:00Unlisted Reason for Exam - Click Yes and Enter Reason Below->Yesevaluate for fractureUnlisted Reason for Exam->evaluate for fracture with cement extravasationPlease specify:->Femur [facility] : 1950 Sex: FFINAL REPORT [...] be helpful for making that distinction. Signed: jJ Arrington Verified Date/Time: 04/08/2022 08:41:48 Reading Location: [address] Ortho Consult Reading Room -GLUCOSE [id number] 17:39:33 Test Item Value Reference Range Interpretation Comments POC-GLUCOSE METER 102 mg/dL 70-110 : TESTED A Stephanie [facility] 6720 (LIA) (test code = [place], 1538) 39625: Cane Furniture Maker/Techni aldo ID = [id number] for Wi lliams, Joana RAD, PELVIS, 1 OR 2 [id number] 16:39:00Reason for exam:->RIGHT HIP ARTHROPLASTYMER[facility] : 1950 Sex: FFINAL REPORT Pelvis History provided: Right hip arthroplasty Components of right hip arthroplasty are in place. Left hip intact. Signed: Matt Juárez Verified Date/Time: 6:39:06 Reading Location: [facility] Diagnostic Imaging Reading Room [place] [address] POCT-GLUCOSE [id number] 10:01:19 Test Item Value Reference Range Interpretation Comments POC-GLUCOSE METER 111 mg/dL 70-110 H : TESTED A T [facility] 6720 (BEAKER) (test code = [place], 1538) 63417: Cane Furniture Maker/Techni aldo ID = [id number] for IMELDA JC CBC W/PLT COUNT & AUTO [id number] 07:15:22 Test Item Value Reference Range Interpretation [...] = 2801) Urinalysis w/Microscopic + Reflex to [id number] 06:45:42 Test Item Value Reference Range Interpretation Comments Color, UA (test code Yellow = 5778-6) Clarity, UA (test Clear code = 5767-9) Specific [place], UA 1.026 1.001-1.035 (test code = 5811-5) pH, UA (test code = 6.5 5.0-8.0 5803-2) Protein, UA (test 20 mg/dL Negative A code = 85315-1) Glucose, UA (test Negative Negative code = 365) Ketones, UA (test Negative Negative code = 2514-8) Bilirubin, UA (test Negative Negative code = 80250-6) Blood, UA (test code Trace Negative A = 49229-2) Nitrite, UA (test Negative Negative code = 5802-4) Leukocytes, UA (test Moderate Negative A code = 5799-2) Urobilinogen, UA 0.2 mg/dL 0.2-1.0 (test code = 28225-3) RBC, UA (test code = 12 See_Comment [Autom ated 81700-1) message] The system which generated this result [...] Bacteria, UA (test None Seen code = 91122-6) Mucus (test code = Occasional 8247-9) Squam Epithel, UA <1 See_Comment [Automate d (test code = 01630-4) messag e] The system which generated this result transmitted reference range : /HPF. The reference range was not used to interpret this result as normal/abnormal . Crystals, Urine (test None Seen code = 12807-7) Specimen Source (test code = 2795) TORRES (test code = TORRES) Cane Furniture Maker ID - [auto]Cane Furniture Maker ID - tech Lab Interpretation Abnormal (test code = 01381-8) [facility] + Reflex to Culture 2022-04-07 06:45:42 Test Item Value Reference Range Interpretation Comments Color, UA (test code Yellow = 5778-6) Clarity, UA (test Clear code = 5767-9) Specific [place], UA 1.026 1.001-1.035 (test code = 5811-5) pH, UA (test code = 6.5 5.0-8.0 5803-2) Protein, UA (test 20 mg/dL Negative A code = 43370-1) Glucose, UA (test Negative Negative code = 365) Ketones, UA (test Negative Negative code = 2514-8) Bilirubin, UA (test Negative Negative code = 21217-6) Blood, UA (test code Trace Negative A = 73202-7) Nitrite, UA (test Negative Negative code = 5802-4) Leukocytes, UA (test Moderate Negative A code = 5799-2) Urobilinogen, UA 0.2 mg/dL 0.2-1.0 (test code = 89757-7) RBC, UA (test code = 12 See_Comment [Autom ated 34435-0) message] The system which generated this result [...] Bacteria, UA (test None Seen code = 85720-8) Mucus (test code = Occasional 8247-9) Squam Epithel, UA <1 See_Comment [Automate d (test code = 55374-7) messag e] The system which generated this result transmitted reference range : /HPF. The reference range was not used to interpret this result as normal/abnormal . Crystals, Urine (test None Seen code = 75404-0) Specimen Source (test code = 2795) TORRES (test code = TORRES) Cane Furniture Maker ID - [auto]Cane Furniture Maker ID - tech Lab Interpretation Abnormal (test code = 00316-5) [facility] + Reflex to Culture 2022-04-07 06:45:42 Test Item Value Reference Range Interpretation Comments Color, UA (test code Yellow = 5778-6) Clarity, UA (test Clear code = 5767-9) Specific [place], UA 1.026 1.001-1.035 (test code = 5811-5) pH, UA (test code = 6.5 5.0-8.0 5803-2) Protein, UA (test 20 mg/dL Negative A code = 15099-9) Glucose, UA (test Negative Negative code = 365) Ketones, UA (test Negative Negative code = 2514-8) Bilirubin, UA (test Negative Negative code = 57271-2) Blood, UA (test code Trace Negative A = 14156-2) Nitrite, UA (test Negative Negative code = 5802-4) Leukocytes, UA (test Moderate Negative A code = 5799-2) Urobilinogen, UA 0.2 mg/dL 0.2-1.0 (test code = 09533-6) RBC, UA (test code = 12 See_Comment [Autom ated 89425-3) message] The system which generated this result [...] Bacteria, UA (test None Seen code = 51037-1) Mucus (test code = Occasional 8247-9) Squam Epithel, UA <1 See_Comment [Automate d (test code = 92938-9) messag e] The system which generated this result transmitted reference range : /HPF. The reference range was not used to interpret this result as normal/abnormal . Crystals, Urine (test None Seen code = 27519-4) Specimen Source (test code = 2795) TORRES (test code = TORRES) Cane Furniture Maker ID - [auto]Cane Furniture Maker ID - tech Lab Interpretation Abnormal (test code = 93253-9) [facility] + Reflex to Culture 2022-04-07 06:45:42 Test Item Value Reference Range Interpretation Comments Color, UA (test code Yellow = 5778-6) Clarity, UA (test Clear code = 5767-9) Specific [place], UA 1.026 1.001-1.035 (test code = 5811-5) pH, UA (test code = 6.5 5.0-8.0 5803-2) Protein, UA (test 20 mg/dL Negative A code = 70537-1) Glucose, UA (test Negative Negative code = 365) Ketones, UA (test Negative Negative code = 2514-8) Bilirubin, UA (test Negative Negative code = 57588-8) Blood, UA (test code Trace Negative A = 40871-1) Nitrite, UA (test Negative Negative code = 5802-4) Leukocytes, UA (test Moderate Negative A code = 5799-2) Urobilinogen, UA 0.2 mg/dL 0.2-1.0 (test code = 60572-2) RBC, UA (test code = 12 See_Comment [Autom ated 62349-4) message] The system which generated this result [...] Bacteria, UA (test None Seen code = 98625-3) Mucus (test code = Occasional 8247-9) Squam Epithel, UA See_Comment [Automate d (test code = 62936-4) messag e] The system which generated this result transmitted reference range : /HPF. The reference range was not used to interpret this result as normal/abnormal . Crystals, Urine (test None Seen code = 11637-3) Specimen Source (test code = 2795) TORRES (test code = TORRES) Cane Furniture Maker ID - [auto]Cane Furniture Maker ID - tech Lab Interpretation Abnormal (test code = 92462-3) [facility] + Reflex to Culture 2022-04-07 06:45:42 Test Item Value Reference Range Interpretation Comments Color, UA (test code Yellow = 5778-6) Clarity, UA (test Clear code = 5767-9) Specific [place], UA 1.026 1.001-1.035 (test code = 5811-5) pH, UA (test code = 6.5 5.0-8.0 5803-2) Protein, UA (test 20 mg/dL Negative A code = 67437-8) Glucose, UA (test Negative Negative code = 365) Ketones, UA (test Negative Negative code = 2514-8) Bilirubin, UA (test Negative Negative code = 45811-6) Blood, UA (test code Trace Negative A = 54285-7) Nitrite, UA (test Negative Negative code = 5802-4) Leukocytes, UA (test Moderate Negative A code = 5799-2) Urobilinogen, UA 0.2 mg/dL 0.2-1.0 (test code = 09446-8) RBC, UA (test code = 12 See_Comment [Autom ated 73946-6) message] The system which generated this result [...] Bacteria, UA (test None Seen code = 53915-9) Mucus (test code = Occasional 8247-9) Squam Epithel, UA See_Comment [Automate d (test code = 39368-4) messag e] The system which generated this result transmitted reference range : /HPF. The reference range was not used to interpret this result as normal/abnormal . Crystals, Urine (test None Seen code = 72770-0) Specimen Source (test code = 2795) TORRES (test code = TORRES) Cane Furniture Maker ID - [auto]Cane Furniture Maker ID - tech Lab Interpretation Abnormal (test code = 62750-6) [facility] + Reflex to Culture 2022-04-07 06:45:42 Test Item Value Reference Range Interpretation Comments Color, UA (test code Yellow = 5778-6) Clarity, UA (test Clear code = 5767-9) Specific [place], UA 1.026 1.001-1.035 (test code = 5811-5) pH, UA (test code = 6.5 5.0-8.0 5803-2) Protein, UA (test 20 mg/dL Negative A code = 24842-2) Glucose, UA (test Negative Negative code = 365) Ketones, UA (test Negative Negative code = 2514-8) Bilirubin, UA (test Negative Negative code = 67665-1) Blood, UA (test code Trace Negative A = 24387-3) Nitrite, UA (test Negative Negative code = 5802-4) Leukocytes, UA (test Moderate Negative A code = 5799-2) Urobilinogen, UA 0.2 mg/dL 0.2-1.0 (test code = 73162-1) RBC, UA (test code = 12 See_Comment [Autom ated 23347-9) message] The system which generated this result [...] Bacteria, UA (test None Seen code = 72228-2) Mucus (test code = Occasional 8247-9) Squam Epithel, UA See_Comment [Automate d (test code = 92484-1) messag e] The system which generated this result transmitted reference range : /HPF. The reference range was not used to interpret this result as normal/abnormal . Crystals, Urine (test None Seen code = 69617-5) Specimen Source (test code = 2795) TORRES (test code = TORRES) Cane Furniture Maker ID - [auto]Cane Furniture Maker ID - tech Lab Interpretation Abnormal (test code = 85934-8) [facility] + Reflex to Culture 2022-04-07 06:45:42 Test Item Value Reference Range Interpretation Comments Color, UA (test code Yellow = 5778-6) Clarity, UA (test Clear code = 5767-9) Specific [place], UA 1.026 1.001-1.035 (test code = 5811-5) pH, UA (test code = 6.5 5.0-8.0 5803-2) Protein, UA (test 20 mg/dL Negative A code = 78409-1) Glucose, UA (test Negative Negative code = 365) Ketones, UA (test Negative Negative code = 2514-8) Bilirubin, UA (test Negative Negative code = 08182-3) Blood, UA (test code Trace Negative A = 08749-0) Nitrite, UA (test Negative Negative code = 5802-4) Leukocytes, UA (test Moderate Negative A code = 5799-2) Urobilinogen, UA 0.2 mg/dL 0.2-1.0 (test code = 22427-9) RBC, UA (test code = 12 See_Comment [Autom ated 86132-9) message] The system which generated this result [...] Bacteria, UA (test None Seen code = 16200-3) Mucus (test code = Occasional 8247-9) Squam Epithel, UA See_Comment [Automate d (test code = 54850-8) messag e] The system which generated this result transmitted reference range : /HPF. The reference range was not used to interpret this result as normal/abnormal . Crystals, Urine (test None Seen code = 97611-5) Specimen Source (test code = 2795) TORRES (test code = TORRES) Cane Furniture Maker ID - [auto]Cane Furniture Maker ID - tech Lab Interpretation Abnormal (test code = 34564-5) [facility] [id number] 06:45:42 Test Item Value Reference Range Interpretation [...] = 1521) SOURCE(BEAKER) (test code = 2795) Cane Furniture Maker ID - [auto]Cane Furniture Maker ID - techBASIC METABOLIC [id number] 06:11:49 Test Item Value Reference Range Interpretation [...] S NOT APPLICABLE FOR DIALYSIS PATIEN TS. Cane Furniture Maker ID - ELVIN ARS-COV2/RT-PCR ([facility])2022-04-07 04:44:08 Test Item Value Reference Range Interpretation Comments SARS-COV2/RT-PCR (test Negative Not Detected, Negative, code = 7438735) See external report for linked test SARS-COV-2 PERFORMING LAB [facility] (test code = 8396511) Negative result for this test determines that [...] of the Act.Fact Sheet for Healthcare Prov iders:https://www.mLED/sites/default/files/product/documents/Fact_Sheet_HC _Njjbknfid_Tcvz_ZWIM-EjS-3.pdfFact Sheet for Healthcare Patients:https://www.mLED/sites/default/files/product/docume nts/Lhkc_Ygrgx_Ltgqmzud_Dxyp_XIZM-UgN-1.pdfPerforming Laboratory:[place] [address].[place], [place] [address]JOSQ. METABOLIC PANEL (70434)2021-07-24 17:14:29 Test Item Value Reference Range Interpretation Comments NA (test code = 139 mmol/L 135-145 4490596878) K (test code = 4.3 mmol/L 3.5-5.0 1698104174) CL (test code = 104 mmol/L 98-108 5629026571) CO2 TOTAL (test code = 24 mmol/L 23-31 2722281148) AGAP (test code = 2-16 3696225100) BUN (test code = 18 mg/dL 7-23 0172025001) GLUCOSE (test code = 104 mg/dL 70-110 2953135588) CREATININE (test code = 1.39 mg/dL 0.50-1.04 H 3445178912) TOTAL BILI (test code = 0.4 mg/dL 0.1-1.8 6708337277) CALCIUM (test code = 9.6 mg/dL 8.6-10.6 3576442022) T PROTEIN (test code = 8.4 g/dL 6.3-8.2 H 6605929588) ALBUMIN (test code = 4.6 g/dL 3.5-5.0 4077460761) ALK PHOS (test code = 93 U/L 34-122 6382215064) ALTv (test code = 44 U/L 5-35 H 1742-6) AST(SGOT) (test code = 48 U/L 13-40 H 6369886029) eGFR (test code = mL/min/1.73m2 7951236069) TORRES (test code = TORRES) Association of [...] tests). Lab Interpretation Abnormal (test code = 02822-1) [facility] Test Item Value Reference Range Interpretation Comments LIPASE (test code = 3453503608) 266 U/L 0-220 H Lab Interpretation (test code = Abnormal 98036-5) [facility] [id number] 17:03:27 Test Item Value Reference Range Interpretation [...] RDW-SD (test code = 48.4 fL 39.0-49.9 40232-4) RDW-CV (test code = 13.8 % 12.0-15.5 788-0) PLT (test code = See_Comment [Automated 777-3) message] The sy stem which generated this result transmitted reference range : 166 - 358 10*3/ ?L. The reference r becca was not used to interpret this result as normal/abnormal . MPV (test code = 9.1 fL 9.5-12.9 L 59875-8) NRBC/100 WBC (test See_Comment [Automat ed code = 7733815818) message] The system which generated this result transmitted reference range : 0.0 - 10.0 /100 WBCs. The refer ence range was not u sed to interpret th is result as normal/abnormal . NRBC x10^3 (test code <0.01 See_Comment [Auto mated = 2502149976) message] The s ystem which generated this result transmitted reference range : 10*3/?L. The reference range was not used to interpret this result as normal/abnormal . GRAN MAT (NEUT) % 64.8 % (test code = 770-8) IMM GRAN % (test code 0.90 % = 6031870600) LYMPH % (test code = 24.2 % 736-9) MONO % (test code = 8.2 % 5905-5) EOS % (test code = 1.4 % 713-8) BASO % (test code = 0.5 % 706-2) GRAN MAT x10^3(ANC) 5.59 10*3/uL 1.88-7.09 (test code = 5070695184) IMM GRAN x10^3 (test 0.08 10*3/uL 0.00-0.06 H code = 6857171571) LYMPH x10^3 (test code 2.09 10*3/uL 1.32-3.29 = 731-0) MONO x10^3 (test code 0.71 10*3/uL 0.33-0.92 = 742-7) EOS x10^3 (test code = 0.12 10*3/uL 0.03-0.39 711-2) BASO x10^3 (test code 0.04 10*3/uL 0.01-0.07 = 704-7) Lab Interpretation Abnormal (test code = 44586-5) [facility] [id number] 07:08:00 Test Item Value Reference Range Interpretation Comments Sodium (test code = 139 meq/L 738-065 9565-2) Potassium (test 4.1 meq/L 3.5-5.1 code = 2823-3) Chloride (test code 107 meq/L 98-107 = 2075-0) CO2 (test code = 25 meq/L -29 2027-9) BUN (test code = 13 mg/dL 04-01 3094-0) Creatinine (test 0.97 mg/dL 0.57-1.25 code = 2160-0) Glucose (test code 80 mg/dL 70-105 = 2345-7) Calcium (test code 8.9 mg/dL 8.4-10.2 = 10100-5) EGFR (test code = 56 mL/min/1.[address] [place] [address]-7) NOT ACCURATE CREATININE CLEARANCE IN PREDICTING GLOMERULAR FILTRATION RATE . ESTIMATED GFR I S NOT APPLICABLE FOR DIALYSIS PATIEN TS. MACDONALD (test code = Cane Furniture Maker ID - TORRES) PIAYA L [facility]atic function [id number] 07:08:00 Test Item Value Reference Range Interpretation Comments Protein, Total (test 6.9 See_Comment [Autom ated code = 2885-2) message] The system which generated this result transmit lane reference range : 6.0 - 8.3 gm/dL . The reference range was not u sed to interpret th is result as normal/abnormal . Albumin (test code = 3.6 g/dL 3.5-5 80955-9) Total Bilirubin (test 0.3 mg/dL 0.2-1.2 code = 1974-2) Bilirubin, Direct 0.2 mg/dL 0.1-0.5 (test code = 1967-7) Alkaline Phosphatase 56 U/L 40-150 (test code = 6768-6) AST (test code = 37 U/L 5-34 H 1920-8) ALT (test code = 50 U/L 6-55 1742-6) TORRES (test code = TORRES) Cane Furniture Maker ID - TOÑITO Camacho Lab Interpretation Abnormal (test code = 80792-4) [facility] metabolic [id number] 07:08:00 Test Item Value Reference Range Interpretation Comments Sodium (test code = 139 meq/L 071-002 4970-2) Potassium (test 4.1 meq/L 3.5-5.1 code = 2823-3) Chloride (test code 107 meq/L 98-107 = 2075-0) CO2 (test code = 25 meq/L 22-29 8-9) BUN (test code = 13 mg/dL 7-21 3094-0) Creatinine (test 0.97 mg/dL 0.57-1.25 code = 2160-0) Glucose (test code 80 mg/dL 70-105 = 2345-7) Calcium (test code 8.9 mg/dL 8.4-10.2 = 57973-9) EGFR (test code = 56 mL/min/1.[address] [place] [address]-5) NOT ACCURATE CREATININE CLEARANCE IN PREDICTING GLOMERULAR FILTRATION RATE . ESTIMATED GFR I S NOT APPLICABLE FOR DIALYSIS PATIEN TS. TORRES (test code = Cane Furniture Maker ID - TORRES) TOÑITO Camacho [facility] function [id number] 07:08:00 Test Item Value Reference Range Interpretation Comments Protein, Total (test 6.9 See_Comment [Autom ated code = 2885-2) message] The system which generated this result transmit lane reference range : 6.0 - 8.3 gm/dL . The reference range was not u sed to interpret th is result as normal/abnormal . Albumin (test code = 3.6 g/dL 3.5-5 72633-6) Total Bilirubin (test 0.3 mg/dL 0.2-1.2 code = 1974-2) Bilirubin, Direct 0.2 mg/dL 0.1-0.5 (test code = 1967-7) Alkaline Phosphatase 56 U/L 40-150 (test code = 6768-6) AST (test code = 37 U/L 5-34 H 1920-8) ALT (test code = 50 U/L 6-55 1742-6) TORRES (test code = TORRES) Cane Furniture Maker ID - TOÑITO Camacho Lab Interpretation Abnormal (test code = 98639-3) [facility] [id number] 07:08:00 Test Item Value Reference Range Interpretation Comments Sodium (test code = 139 meq/L 157-400 7678-2) Potassium (test 4.1 meq/L 3.5-5.1 code = 2823-3) Chloride (test code 107 meq/L 98-107 = 2075-0) CO2 (test code = 25 meq/L 22-29 8-9) BUN (test code = 13 mg/dL 7-21 3094-0) Creatinine (test 0.97 mg/dL 0.57-1.25 code = 2160-0) Glucose (test code 80 mg/dL 70-105 = 2345-7) Calcium (test code 8.9 mg/dL 8.4-10.2 = 29855-9) EGFR (test code = 56 mL/min/1.[address] [place] [address]-2) NOT ACCURATE CREATININE CLEARANCE IN PREDICTING GLOMERULAR FILTRATION RATE . ESTIMATED GFR I S NOT APPLICABLE FOR DIALYSIS PATIEN TSKenrick TORRES (test code = Cane Furniture Maker ID - TORRES) TOÑITO Camacho [facility] function [id number] 07:08:00 Test Item Value Reference Range Interpretation Comments Protein, Total (test 6.9 See_Comment [Autom ated code = 2885-2) message] The system which generated this result transmit lane reference range : 6.0 - 8.3 gm/dL . The reference range was not u sed to interpret th is result as normal/abnormal . Albumin (test code = 3.6 g/dL 3.5-5 81837-8) Total Bilirubin (test 0.3 mg/dL 0.2-1.2 code = 1975-2) Bilirubin, Direct 0.2 mg/dL 0.1-0.5 (test code = 1967-7) Alkaline Phosphatase 56 U/L 40-150 (test code = 6768-6) AST (test code = 37 U/L 5-34 H 1920-8) ALT (test code = 50 U/L 6-55 1742-6) TORRES (test code = TORRES) Cane Furniture Maker ID - TOÑITO Camacho Lab Interpretation Abnormal (test code = 76445-8) [facility] [id number] 07:08:00 Test Item Value Reference Range Interpretation Comments Sodium (test code = 139 meq/L 803-744 2332-2) Potassium (test 4.1 meq/L 3.5-5.1 code = 2823-3) Chloride (test code 107 meq/L 98-107 = 2075-0) CO2 (test code = 25 meq/L 22-29 8-9) BUN (test code = 13 mg/dL 7-21 3094-0) Creatinine (test 0.97 mg/dL 0.57-1.25 code = 2160-0) Glucose (test code 80 mg/dL 70-105 = 2345-7) Calcium (test code 8.9 mg/dL 8.4-10.2 = 93579-7) EGFR (test code = 56 mL/min/1.[address] [place] [address]-5) NOT ACCURATE CREATININE CLEARANCE IN PREDICTING GLOMERULAR FILTRATION RATE . ESTIMATED GFR I S NOT APPLICABLE FOR DIALYSIS PATIEN TORRES (test code = Cane Furniture Maker ID - TORRES) TOÑITO Camacho [facility]Hep[facility] function [id number] 07:08:00 Test Item Value Reference Range Interpretation Comments Protein, Total (test 6.9 See_Comment [Autom ated code = 2885-2) message] The system which generated this result transmit lane reference range : 6.0 - 8.3 gm/dL . The reference range was not u sed to interpret th is result as normal/abnormal . Albumin (test code = 3.6 g/dL 3.5-5 24198-6) Total Bilirubin (test 0.3 mg/dL 0.2-1.2 code = 1974-2) Bilirubin, Direct 0.2 mg/dL 0.1-0.5 (test code = 1967-7) Alkaline Phosphatase 56 U/L 40-150 (test code = 6768-6) AST (test code = 37 U/L 5-34 H 1920-8) ALT (test code = 50 U/L 6-55 1742-6) TORRES (test code = TORRES) Cane Furniture Maker ID - TOÑITO L Lab Interpretation Abnormal (test code = 26013-3) [facility] METABOLIC [id number] 07:08:00 Test Item Value Reference Range Interpretation [...] S NOT APPLICABLE FOR DIALYSIS PATIEN TS. Cane Furniture Maker ID - PIAYA LHEPATIC FUNCTION [id number] 07:08:00 Test Item Value Reference Range Interpretation [...] (test code = 50 U/L 6-55 347) Cane Furniture Maker ID - TOÑITO LCBC with platelet count + automated [id number] 06:01:00 Test Item Value Reference Range Interpretation Comments WBC (test code = 6690-2) 7.9 See_Comment [A utomated message] The system b3 bio generated this result transmitted ref erence range: 3.5 - 10 .5 K/L. The refe rence range was not u sed to interpret this result as normal/abnor mal. RBC (test code = 789-8) 3.22 See_Comment L [Au tomated message] The system b3 bio generated this result transmitted ref erence range: 3.93 - 5 .22 M/L. The refe rence range was not u sed to interpret this result as normal/abnor mal. MCHC (test code = 786-4) 31.8 See_Comment L [A utomated message] The system b3 bio generated this result transmitted ref erence range: [...] code = 282 See_Comment [Aut omated message] 547-3) The system b3 bio generated this result transmitted ref erence range: 150 - 45 0 K/CU MM. The referen ce range was not u sed to interpret this result as normal/abnor mal. MPV (test code = 8.9 fL 9.4-12.3 L 57858-3) nRBC (test code = 413) 0 See_Comment [Aut omated message] The system b3 bio generated this result transmitted ref erence range: [...] See_Comment [Aut omated message] 670) The system b3 bio generated this result transmitted ref erence range: 1.56 - 6 .13 K/L. The refe rence range was not u sed to interpret this result as normal/abnor mal. # Lymphs (test code = 2.20 See_Comment [Auto mated message] 414) The system b3 bio generated this result transmitted ref erence range: 1.18 - 3 .74 K/L. The refe rence range was not u sed to interpret this result as normal/abnor mal. # Monos (test code = 0.54 See_Comment H [Autom ated message] 415) The system b3 bio generated this result transmitted ref erence range: 0.24 - 0 .36 K/L. The refe rence range was not u sed to interpret this result as normal/abnor mal. # Eos (test code = 416) 0.08 See_Comment [Au tomated message] The system b3 bio generated this result transmitted ref erence range: 0.04 - 0 .36 K/L. The refe rence range was not u sed to interpret this result as normal/abnor mal. # Baso (test code = 417) 0.03 See_Comment [A utomated message] The system b3 bio generated this result transmitted ref erence range: 0.01 - 0 .08 K/L. The refe rence range was not u sed to interpret this result as normal/abnor mal. Immature 0 % 0-1 Granulocytes-Relative (test code = 2801) Lab Interpretation (test Abnormal code = 24450-5) [facility] with platelet count + automated [id number] 06:01:00 Test Item Value Reference Range Interpretation Comments WBC (test code = 6690-2) 7.9 See_Comment [A utomated message] The system b3 bio generated this result transmitted ref erence range: 3.5 - 10 .5 K/L. The refe rence range was not u sed to interpret this result as normal/abnor mal. RBC (test code = 789-8) 3.22 See_Comment L [Au tomated message] The system b3 bio generated this result transmitted ref erence range: 3.93 - 5 .22 M/L. The refe rence range was not u sed to interpret this result as normal/abnor mal. MCHC (test code = 786-4) 31.8 See_Comment L [A utomated message] The system b3 bio generated this result transmitted ref erence range: [...] See_Comment [Aut omated message] 777-3) The system b3 bio generated this result transmitted ref erence range: 150 - 45 0 K/CU MM. The referen ce range was not u sed to interpret this result as normal/abnor mal. MPV (test code = 8.9 fL 9.4-12.3 L 00119-2) nRBC (test code = 413) 0 See_Comment [Aut omated message] The system b3 bio generated this result transmitted ref erence range: [...] See_Comment [Aut omated message] 670) The system b3 bio generated this result transmitted ref erence range: 1.56 - 6 .13 K/L. The refe rence range was not u sed to interpret this result as normal/abnor mal. # Lymphs (test code = 2.20 See_Comment [Auto mated message] 414) The system b3 bio generated this result transmitted ref erence range: 1.18 - 3 .74 K/L. The refe rence range was not u sed to interpret this result as normal/abnor mal. # Monos (test code = 0.54 See_Comment H [Autom ated message] 415) The system b3 bio generated this result transmitted ref erence range: 0.24 - 0 .36 K/L. The refe rence range was not u sed to interpret this result as normal/abnor mal. # Eos (test code = 416) 0.08 See_Comment [Au tomated message] The system b3 bio generated this result transmitted ref erence range: 0.04 - 0 .36 K/L. The refe rence range was not u sed to interpret this result as normal/abnor mal. # Baso (test code = 417) 0.03 See_Comment [A utomated message] The system b3 bio generated this result transmitted ref erence range: 0.01 - 0 .08 K/L. The refe rence range was not u sed to interpret this result as normal/abnor mal. Immature 0 % 0-1 Granulocytes-Relative (test code = 2801) Lab Interpretation (test Abnormal code = 91913-8) [facility] with platelet count + automated [id number] 06:01:00 Test Item Value Reference Range Interpretation Comments WBC (test code = 6690-2) 7.9 See_Comment [A utomated message] The system b3 bio generated this result transmitted ref erence range: 3.5 - 10 .5 K/L. The refe rence range was not u sed to interpret this result as normal/abnor mal. RBC (test code = 789-8) 3.22 See_Comment L [Au tomated message] The system b3 bio generated this result transmitted ref erence range: 3.93 - 5 .22 M/L. The refe rence range was not u sed to interpret this result as normal/abnor mal. MCHC (test code = 786-4) 31.8 See_Comment L [A utomated message] The system b3 bio generated this result transmitted ref erence range: [...] See_Comment [Aut omated message] 777-3) The system b3 bio generated this result transmitted ref erence range: 150 - 45 0 K/CU MM. The referen ce range was not u sed to interpret this result as normal/abnor mal. MPV (test code = 8.9 fL 9.4-12.3 L 93761-2) nRBC (test code = 413) 0 See_Comment [Aut omated message] The system b3 bio generated this result transmitted ref erence range: [...] See_Comment [Aut omated message] 670) The system b3 bio generated this result transmitted ref erence range: 1.56 - 6 .13 K/L. The refe rence range was not u sed to interpret this result as normal/abnor mal. # Lymphs (test code = 2.20 See_Comment [Auto mated message] 414) The system b3 bio generated this result transmitted ref erence range: 1.18 - 3 .74 K/L. The refe rence range was not u sed to interpret this result as normal/abnor mal. # Monos (test code = 0.54 See_Comment H [Autom ated message] 415) The system b3 bio generated this result transmitted ref erence range: 0.24 - 0 .36 K/L. The refe rence range was not u sed to interpret this result as normal/abnor mal. # Eos (test code = 416) 0.08 See_Comment [Au tomated message] The system b3 bio generated this result transmitted ref erence range: 0.04 - 0 .36 K/L. The refe rence range was not u sed to interpret this result as normal/abnor mal. # Baso (test code = 417) 0.03 See_Comment [A utomated message] The system b3 bio generated this result transmitted ref erence range: 0.01 - 0 .08 K/L. The refe rence range was not u sed to interpret this result as normal/abnor mal. Immature 0 % 0-1 Granulocytes-Relative (test code = 2801) Lab Interpretation (test Abnormal code = 07912-8) [facility] with platelet count + automated [id number] 06:01:00 Test Item Value Reference Range Interpretation Comments WBC (test code = 6690-2) 7.9 See_Comment [A utomated message] The system b3 bio generated this result transmitted ref erence range: 3.5 - 10 .5 K/L. The refe rence range was not u sed to interpret this result as normal/abnor mal. RBC (test code = 789-8) 3.22 See_Comment L [Au tomated message] The system b3 bio generated this result transmitted ref erence range: 3.93 - 5 .22 M/L. The refe rence range was not u sed to interpret this result as normal/abnor mal. MCHC (test code = 786-4) 31.8 See_Comment L [A utomated message] The system b3 bio generated this result transmitted ref erence range: [...] See_Comment [Aut omated message] 777-3) The system b3 bio generated this result transmitted ref erence range: 150 - 45 0 K/CU MM. The referen ce range was not u sed to interpret this result as normal/abnor mal. MPV (test code = 8.9 fL 9.4-12.3 L 51663-0) nRBC (test code = 413) 0 See_Comment [Aut omated message] The system b3 bio generated this result transmitted ref erence range: [...] See_Comment [Aut omated message] 670) The system b3 bio generated this result transmitted ref erence range: 1.56 - 6 .13 K/L. The refe rence range was not u sed to interpret this result as normal/abnor mal. # Lymphs (test code = 2.20 See_Comment [Auto mated message] 414) The system b3 bio generated this result transmitted ref erence range: 1.18 - 3 .74 K/L. The refe rence range was not u sed to interpret this result as normal/abnor mal. # Monos (test code = 0.54 See_Comment H [Autom ated message] 415) The system b3 bio generated this result transmitted ref erence range: 0.24 - 0 .36 K/L. The refe rence range was not u sed to interpret this result as normal/abnor mal. # Eos (test code = 416) 0.08 See_Comment [Au tomated message] The system b3 bio generated this result transmitted ref erence range: 0.04 - 0 .36 K/L. The refe rence range was not u sed to interpret this result as normal/abnor mal. # Baso (test code = 417) 0.03 See_Comment [A utomated message] The system b3 bio generated this result transmitted ref erence range: 0.01 - 0 .08 K/L. The refe rence range was not u sed to interpret this result as normal/abnor mal. Immature 0 % 0-1 Granulocytes-Relative (test code = 2801) Lab Interpretation (test Abnormal code = 67041-4) [facility] W/PLT COUNT & AUTO [id number] 06:01:00 Test Item Value Reference Range Interpretation [...] (BEAKER) (test code = 2801) ECG 12 [id number] 06:47:19Interface, External Ris In - 05/05/2021 6:47 AM CDTVentricular Rate 91 BPMAtrial Rate 91 BPMP-R Interval 126 msQRS Duration 78 msQ-T Interval 352 msQTC Calculation(Bazett) 432 msP Sikes 44 degreesR Axis28 degreesT Sikes 39 degreesNormal sinus rhythmNormal ECGNo previous ECGs availableConfirmed by MD BELLAMY JOSEPH P ([id number]) on 05/05/2021 6:47:15 [facility] [id number] 06:47:19Interface, External Ris In - 05/05/2021 6:47 AM CDTVentricular Rate 91 BPMAtrial Rate 91 BPMP-R Interval 126 msQRS Duration 78 msQ-T Interval 352 msQTC Calculation(Bazett) 432 msP Sikes 44 degreesR Axis28 degreesT Sikes 39 degreesNormal sinus rhythmNormal ECGNo previous ECGs availableConfirmed by MD BELLAMY JOSEPH P ([id number]) on 05/05/2021 6:47:15 [facility] [id number] 06:47:19Interface, External Ris In - 05/05/2021 6:47 AM CDTVentricular Rate 91 BPMAtrial Rate 91 BPMP-R Interval 126 msQRS Duration 78 msQ-T Interval 352 msQTC Calculation(Bazett) 432 msP Sikes 44 degreesR Sikes 28 degreesT Sikes 39 degreesNormal sinus rhythmNormal ECGNo previous ECGs availableConfirmed by OKSANA LANDRUM MD, JOSEPH P ([id number]) on 05/05/2021 6:47:15 [facility] [id number] 06:47:19Interface, External Ris In - 05/05/2021 6:47 AM CDTVentricular Rate 91 BPMAtrial Rate 91 BPMP-R Interval 126 msQRS Duration 78 msQ-T Interval 352 msQTC Calculation(Bazett) 432 msP Sikes 44 degreesR Axis28 degreesT Sikes 39 degreesNormal sinus rhythmNormal ECGNo previous ECGs availableConfirmed by MD BELLAMY JOSEPH P ([id number]) on 05/05/2021 6:47:15 [facility], [id number] 06:17:00 Test Item Value Reference Range Interpretation Comments ABO Grouping (test code = 2588) O Rh Factor (test code = 2589) [facility], [id number] 06:17:00 Test Item Value Reference Range Interpretation Comments ABO Grouping (test code = 2588) O Rh Factor (test code = 2589) [facility], [id number] 06:17:00 Test Item Value Reference Range Interpretation Comments ABO Grouping (test code = 2588) O Rh Factor (test code = 2589) [facility], [id number] 06:17:00 Test Item Value Reference Range Interpretation Comments ABO Grouping (test code = 2588) O Rh Factor (test code = 2589) [facility] 2021-05-05 05:01:00 Test Item Value Reference Range Interpretation Comments ABO/RH AUTOMATED (BEAKER) (test O POSITIVE code = 2260) Ab Scrn (test code = 890-4) NEGATIVE [facility] 2021-05-05 05:01:00 Test Item Value Reference Range Interpretation Comments ABO/RH AUTOMATED (BEAKER) (test O POSITIVE code = 2260) Ab Scrn (test code = 890-4) NEGATIVE [facility] ([facility]) 2021-05-05 05:01:00 Test Item Value Reference Range Interpretation Comments ABO/RH AUTOMATED (BEAKER) (test O POSITIVE code = 2260) Ab Scrn (test code = 890-4) NEGATIVE [facility] ([facility]) 2021-05-05 05:01:00 Test Item Value Reference Range Interpretation Comments ABO/RH AUTOMATED (BEAKER) (test O POSITIVE code = 2260) Ab Scrn (test code = 890-4) NEGATIVE [facility] HospitalPT/[id number] 04:35:00 Test Item Value Reference Interpretation Comments [...] valves. Lab Interpretation Normal (test code = 35076-9) [facility][id number] 04:35:00 Test Item Value Reference Interpretation Comments [...] valves. Lab Interpretation Normal (test code = 73086-5) [facility]/[id number] 04:35:00 Test Item Value Reference Interpretation Comments [...] valves. Lab Interpretation Normal (test code = 48660-1) [facility]PT/[id number] 04:35:00 Test Item Value Reference Interpretation Comments [...] valves. Lab Interpretation Normal (test code = 27188-3) [facility] HospitalPROTHROMBIN TIME/[id number] 04:35:00 Test Item Value Reference Range Interpretation Comments PROTIME (BEAKER) 13.7 seconds 11.9-14.2 (test code = 759) INR (BEAKER) (test 1.07 See_Comment [Automat ed message] code = 370) The system b3 bio generated this result transmitted ref erence range: <=5.90. The reference range was not used to int erpret this result as normal/abnormal . RECOMMENDED COUMADIN/WARFARIN INR THERAPY RANGESSTANDARD DOSE: 2.0 - 3.0 Includes: PROPHYLAXIS for venous thrombosis, systemic embolization; TREATMENT for venous thrombosis and/or pulmonary embolus.HIGH RISK: Target INR is 2.5-3.5 for patients with mechanical heart valves.High Sensitivity Troponin [id number] 01:56:00 Test Item Value Reference Range Interpretation Comments Troponin I HS (test <4 See_Comment [Sparq Systemsa lane code = 29178-7) message] The system which generated this result transmitted reference range : <=17 pg/ml. The reference range was not used to interpret this result as normal/abnormal . TORRES (test code = Cane Furniture Maker ID - TORRES) DBThe PARTS PRODUCT ANALYST STAT High Sensitivity Troponin-I results should be used in conjunction with other diagnostic information such as ECG, clinical observations and information, and patient symptoms to aid in the diagnosis of IL. Lab Interpretation Normal (test code = 28018-5) [facility] Troponin [id number] 01:56:00 Test Item Value Reference Range Interpretation Comments Troponin I HS (test <4 See_Comment [Sparq Systemsa lane code = 54214-4) message] The system which generated this result transmitted reference range : <=17 pg/ml. The reference range was not used to interpret this result as normal/abnormal . TORRES (test code = Cane Furniture Maker ID - TORRES) DBThe PARTS PRODUCT ANALYST STAT High Sensitivity Troponin-I results should be used in conjunction with other diagnostic information such as ECG, clinical observations and information, and patient symptoms to aid in the diagnosis of IL. Lab Interpretation Normal (test code = 41062-5) [facility]High [facility] Troponin [id number] 01:56:00 Test Item Value Reference Range Interpretation Comments Troponin I HS (test <4 See_Comment [Automa lane code = 46012-8) message] The system which generated this result transmitted reference range : <=17 pg/ml. The reference range was not used to interpret this result as normal/abnormal . TORRES (test code = Cane Furniture Maker ID - TORRES) DBThe PARTS PRODUCT ANALYST STAT High Sensitivity Troponin-I results should be used in conjunction with other diagnostic information such as ECG, clinical observations and information, and patient symptoms to aid in the diagnosis of IL. Lab Interpretation Normal (test code = 19620-7) [facility] Troponin [id number] 01:56:00 Test Item Value Reference Range Interpretation Comments Troponin I HS (test <4 See_Comment [Automa lane code = 08140-8) message] The system which generated this result transmitted reference range : <=17 pg/ml. The reference range was not used to interpret this result as normal/abnormal . TORRES (test code = Cane Furniture Maker ID - TORRES) DBThe PARTS PRODUCT ANALYST STAT High Sensitivity Troponin-I results should be used in conjunction with other diagnostic information such as ECG, clinical observations and information, and patient symptoms to aid in the diagnosis of IL. Lab Interpretation Normal (test code = 92813-8) [facility]ENSITIVITY TROPONIN [id number] 01:56:00 Test Item Value Reference Range Interpretation Comments HIGH SENSITIVITY < pg/ml See_Comment [Automated message] TROPONIN I (test code = The system which [id number]) generated this result transmitted ref erence range: <=17. Th e reference range was not used to interpr et this result as normal/abnormal . Cane Furniture Maker ID - DBThe PARTS PRODUCT ANALYST STAT High Sensitivity Troponin-I results should be used in conjunctionwith other diagnostic information such as ECG, clinical observations and information, and patient symptoms to aid in the diagnosis of IL.Ketones, [id number] 01:40:00 Test Item Value Reference Range Interpretation Comments Ketones, Blood (test code = 1103) 0.4 mmol/L <0.4 H Lab Interpretation (test code = Abnormal 51184-8) [facility] HospitalAnna Marie, [id number] 01:40:00 Test Item Value Reference Range Interpretation Comments Ketones, Blood (test code = 1103) 0.4 mmol/L <0.4 H Lab Interpretation (test code = Abnormal 91503-2) [facility], [id number] 01:40:00 Test Item Value Reference Range Interpretation Comments Ketones, Blood (test code = 1103) 0.4 mmol/L <0.4 H Lab Interpretation (test code = Abnormal 66776-9) [facility] [id number] 01:40:00 Test Item Value Reference Range Interpretation Comments Ketones, Blood (test code = 1103) 0.4 mmol/L <0.4 H Lab Interpretation (test code = Abnormal 54823-0) [facility] [id number] 01:40:00 Test Item Value Reference Range Interpretation Comments KETONES, BLOOD (BEAKER) (test code 0.4 mmol/L <0.4 H = 1103) SARS-CoV2/RT-PCR (Asymptomatic ONLY)2021-05-05 01:30:00 Test Item Value Reference Interpretation Comments Range SARS-COV2/RT-PCR Negative Negative The SARS-Co V-2 (test code = target nucleic 07276-4) acids are not detected in thi s [...] revoked sooner. Fact Sheet for Healthcare Providers: https://www.[employer]/Documents/Xp ert%20Xpress%20SAR S%20CoV-2/Fact%20S heets/302-3802%20S ARS-COV-2%20HEALTH CARE%20PROVIDERS%2 0FACT%20SHEET.pdf Fact Sheet for Healthcare Patients: https://www.[employer]/Documents/Xp ert%20Xpress%20SAR S%20CoV-2/Fact%20S heets/302-3801%20S ARS-COV-2%20PATIEN T%20FACT%20SHEET.p df Lab Interpretation Normal (test code = 16865-8) [facility]2021-05-05 01:30:00 Test Item Value Reference Interpretation Comments Range SARS-COV2/RT-PCR Negative Negative The SARS-Co V-2 (test code = target nucleic 14238-3) acids are not detected in thi s [...] revoked sooner. Fact Sheet for Healthcare Providers: https://www.[employer]/Documents/Xp ert%20Xpress%20SAR S%20CoV-2/Fact%20S heets/302-3802%20S ARS-COV-2%20HEALTH CARE%20PROVIDERS%2 0FACT%20SHEET.pdf Fact Sheet for Healthcare Patients: https://www.[employer]/Documents/Xp ert%20Xpress%20SAR S%20CoV-2/Fact%20S heets/302-3801%20S ARS-COV-2%20PATIEN T%20FACT%20SHEET.p df Lab Interpretation Normal (test code = 13727-6) [facility] (Asymptomatic ONLY)2021-05-05 01:30:00 Test Item Value Reference Interpretation Comments Range SARS-COV2/RT-PCR Negative Negative The SARS-Co V-2 (test code = target nucleic 10924-8) acids are not detected in thi s [...] revoked sooner. Fact Sheet for Healthcare Providers: https://www.[employer]/Documents/Xp ert%20Xpress%20SAR S%20CoV-2/Fact%20S heets/302-3802%20S ARS-COV-2%20HEALTH CARE%20PROVIDERS%2 0FACT%20SHEET.pdf Fact Sheet for Healthcare Patients: https://www.[employer]/Documents/Xp ert%20Xpress%20SAR S%20CoV-2/Fact%20S heets/302-3801%20S ARS-COV-2%20PATIEN T%20FACT%20SHEET.p df Lab Interpretation Normal (test code = 63896-0) [facility] (Asymptomatic ONLY)2021-05-05 01:30:00 Test Item Value Reference Interpretation Comments Range SARS-COV2/RT-PCR Negative Negative The SARS-Co V-2 (test code = target nucleic 63325-5) acids are not detected in thi s [...] revoked sooner. Fact Sheet for Healthcare Providers: https://www.[employer]/Documents/Xp ert%20Xpress%20SAR S%20CoV-2/Fact%20S heets/302-3802%20S ARS-COV-2%20HEALTH CARE%20PROVIDERS%2 0FACT%20SHEET.pdf Fact Sheet for Healthcare Patients: https://www.[employer]/Documents/Xp ert%20Xpress%20SAR S%20CoV-2/Fact%20S heets/302-3801%20S ARS-COV-2%20PATIEN T%20FACT%20SHEET.p df Lab Interpretation Normal (test code = 14523-2) [facility])2021-05-05 01:30:00 Test Item Value Reference Range Interpretation Comments SARS-COV2/RT-PCR Negative Negative The SARS-Co V-2 target (test code = nucleic acids a re not 6384493) detected in thi s specimen. Negative result [...] revoked sooner. Fact Sheet for Healthcare Providers: https://www.[employer]/Documents/Xpert%20Xpress%20SARS%20CoV-2/Fact%20Sheets/302-3802%36HMSM-ZLJ-7%2 0HEALTHCARE%20PROVIDERS%20FACT%20SHEET.pdf Fact Sheet for Healthcare Patients: https://www.[employer]/Documents/Xpert%20X press%20SARS%20CoV-2/Fact%20Sheets/302-3801%56YVSD-BAY-5%20PATIENT%20FACT%20SHEE TiffanypdfBlood gas, [id number] 01:22:00 Test Item Value Reference Range Interpretation [...] Niranjan (test code = 21 mmol/L 21-29 58977-1) Base Excess, Niranjan (test -4.5 mmol/L -2-3 L code = 1927-3) Patient Temperature 37.0 (test code = 8310-5) FIO2 (test code = 1819) 21 Lab Interpretation Abnormal (test code = 54642-0) [facility]Blood [facility], [id number] 01:22:00 Test Item Value Reference Range Interpretation [...] Niranjan (test code = 21 mmol/L 21-29 59152-9) Base Excess, Niranjan (test -4.5 mmol/L -2-3 L code = 1927-3) Patient Temperature 37.0 (test code = 8310-5) FIO2 (test code = 1819) 21 Lab Interpretation Abnormal (test code = 76439-3) [facility] gas, [id number] 01:22:00 Test Item Value Reference Range Interpretation [...] Niranjan (test code = 21 mmol/L 21-29 34355-2) Base Excess, Niranjan (test -4.5 mmol/L -2-3 L code = 1927-3) Patient Temperature 37.0 (test code = 8310-5) FIO2 (test code = 1819) 21 Lab Interpretation Abnormal (test code = 12469-6) [facility] gas, [id number] 01:22:00 Test Item Value Reference Range Interpretation [...] Niranjan (test code = 21 mmol/L 21-29 33751-0) Base Excess, Niranjan (test -4.5 mmol/L -2-3 L code = 1927-3) Patient Temperature 37.0 (test code = 8310-5) FIO2 (test code = 1819) 21 Lab Interpretation Abnormal (test code = 93351-9) [facility], [id number] 01:22:00 Test Item Value Reference Range Interpretation [...] (BEAKER) (test code = 1819) 21.0 ECG/EKG [id number] 23:15:17Cherie Faustin MD 05/05/2021 2:11 AMECG/EKG Interpretation Date/Time: 05/04/2021 11:26 PMPerformed by: Cherie Faustin MDAuthorized by: Cherie Faustin MD The ECG was interpreted by ED physician. The ECG is interpreted as sinus rhythm. Rate is normal rate. Heart rate is 91 BPM.ST segments normal.T-wave inversion in lead(s) V1 and V2. Clinical Impression: normal ECGCH[facility] CampusECG/[facility]KG Interpretation 2021-05-04 23:15:17Cherie Faustin MD 05/05/2021 2:11 AMECG/EKG Interpretation Date/Time: 05/04/2021 11:26 PMPerformed by: Cherie Faustin MDAuthorized by: Cherie Faustin MD The ECG was interpreted by ED physician. The ECG is interpreted as sinus rhythm. Rate is normal rate. Heart rate is 91 BPM.ST segments normal.T-wave inversion in lead(s) V1 and V2. Clinical Impression: normal ECGCH[facility]ECG/EKG [id number] 23:15:17 Cherie Faustin MD 05/05/2021 2:11 AMECG/EKG Interpretation Date/Time: 05/04/2021 11:26 PMPerformed by: Cherie Faustin MDAuthorized by: Cherie Faustin MD The ECG was interpreted by ED physician. The ECG is interpreted as sinus rhythm. Rate is normal rate. Heart rate is 91 BPM.ST segments normal.T- wave inversion in lead(s) V1 and V2. Clinical Impression: normal ECGCH[facility] CampusECG/EKG Gpwwwtryzawppi3767-74-95 23:15:17Cherie Faustin MD 05/05/2021 2:11 AMECG/EKG Interpretation Date/Time: 05/04/2021 11:26 PMPerformed b y: Cherie Faustin MDAuthorized by: Cherie Faustin MD The ECG was interpreted by ED physician. The ECG is interpreted as sinus rhythm. Rate is normal rate. Heart rate is 91 BPM.ST segments normal.T-wave inversion in lead(s) V1 and V2. Clinical Impression: normal ECGCanyon [facility] HospitalHEPATIC FUNCTION [id number] 22:01:00 Test Item Value Reference Range Interpretation [...] Specimen moderately (test code = 347) hemolyzed Cane Furniture Maker ID - [id number] 21:53:00 Test Item Value Reference Range Interpretation Comments Amylase (test code = 143 U/L 25-125 H Specime n 1798-8) markedly hemolyzed TORRES (test code = TORRES) Cane Furniture Maker ID - DB Lab Interpretation Abnormal (test code = 53266-8) [facility] HospitalLipase2021-08-23 21:53:00 Test Item Value Reference Range Interpretation Comments Lipase (test code = 3040-3) 97 U/L 8-78 H TORRES (test code = TORRES) Cane Furniture Maker ID - DB Lab Interpretation (test Abnormal code = 57781-1) [facility] HospitalAmylase2021-08-23 21:53:00 Test Item Value Reference Range Interpretation Comments Amylase (test code = 143 U/L 25-125 H Specime n 1798-8) markedly hemolyzed TORRES (test code = TORRES) Cane Furniture Maker ID - DB Lab Interpretation Abnormal (test code = 68009-9) [facility] HospitalLipase2021-08-23 21:53:00 Test Item Value Reference Range Interpretation Comments Lipase (test code = 3040-3) 97 U/L 8-78 H TORRES (test code = TORRES) Cane Furniture Maker ID - DB Lab Interpretation (test Abnormal code = 33172-5) [facility] HospitalAmylase2021-08-23 21:53:00 Test Item Value Reference Range Interpretation Comments Amylase (test code = 143 U/L 25-125 H Specime n 1798-8) markedly hemolyzed TORRES (test code = TORRES) Cane Furniture Maker ID - DB Lab Interpretation Abnormal (test code = 98180-6) [facility] HospitalLipase2021-08-23 21:53:00 Test Item Value Reference Range Interpretation Comments Lipase (test code = 3040-3) 97 U/L 8-78 H TORRES (test code = TORRES) Cane Furniture Maker ID - DB Lab Interpretation (test Abnormal code = 68828-0) [facility] HospitalAmylase2021-08-23 21:53:00 Test Item Value Reference Range Interpretation Comments Amylase (test code = 143 U/L 25-125 H Specime n 1798-8) markedly hemolyzed TORRES (test code = TORRES) Cane Furniture Maker ID - DB Lab Interpretation Abnormal (test code = 07959-3) [facility] HospitalLipase2021-08-23 21:53:00 Test Item Value Reference Range Interpretation Comments Lipase (test code = 3040-3) 97 U/L 8-78 H TORRES (test code = TORRES) Cane Furniture Maker ID - DB Lab Interpretation (test Abnormal code = 76962-9) [facility] HospitalBASIC METABOLIC [id number] 21:53:00 Test Item Value Reference Range Interpretation [...] S NOT APPLICABLE FOR DIALYSIS PATIEN TS. Cane Furniture Maker ID - [id number] 21:53:00 Test Item Value Reference Range Interpretation Comments AMYLASE (BEAKER) (test 143 U/L 25-125 H Speci men markedly code = 349) hemolyzed Cane Furniture Maker ID - [id number] 21:53:00 Test Item Value Reference Range Interpretation Comments LIPASE (BEAKER) (test code = 749) 97 U/L 8-78 H Cane Furniture Maker ID - DBCBC W/PLT COUNT & AUTO [id number] 19:51:00 Test Item Value Reference Range Interpretation [...] PERCENT (BEAKER) (test code = 2801) POC-Glucose [id number] 08:41:00 Test Item Value Reference Range Interpretation Comments POC-Glucose Meter (test 104 mg/dL 70-110 : TE STED AT [facility] code = 1538) [address] [place] [address], [facility]: Cane Furniture Maker/Techni aldo ID = [id number] for ROCKY LEMONIE Lab Interpretation (test Normal code = 44901-2) [facility]-Glucose [id number] 08:41:00 Test Item Value Reference Range Interpretation Comments POC-Glucose Meter (test 104 mg/dL 70-110 : TE STED AT [facility] code = 1538) [address] [place] [address], [facility] 30: Cane Furniture Maker/Techni aldo ID = [id number] for XOCHILT HUSSEIN Lab Interpretation (test Normal code = 70820-4) [facility]-Glucose [id number] 08:41:00 Test Item Value Reference Range Interpretation Comments POC-Glucose Meter (test 104 mg/dL 70-110 : TE STED AT [facility] code = 1538) [address] [place] [address], 770 30: Cane Furniture Maker/Techni aldo ID = [id number] for XOCHILT HUSSEIN Lab Interpretation (test Normal code = 45425-7) [facility]-Glucose [id number] 08:41:00 Test Item Value Reference Range Interpretation Comments POC-Glucose Meter (test 104 mg/dL 70-110 : TE STED AT [facility] code = 1538) [address] [place] [address], [facility] 30: Cane Furniture Maker/Techni aldo ID = [id number] for XOCHILT HUSSEIN Lab Interpretation (test Normal code = 49968-2) [facility]-GLUCOSE [id number] 08:41:00 Test Item Value Reference Range Interpretation Comments POC-GLUCOSE METER 104 mg/dL 70-110 : TESTED A T [facility] 6720 (BEAKER) (test code = [place]O [place] [facility], 1538) [address]: Cane Furniture Maker/Techni aldo ID = [id number] for HUSSEIN DAVID Comprehensive metabolic [id number] 06:49:00 Test Item Value Reference Range Interpretation Comments Protein, Total (test 6.8 See_Comment [Autom ated code = 2885-2) message] The system which generated this result transmit lane reference range : 6.0 - 8.3 gm/dL . The reference range was not u sed to interpret th is result as normal/abnormal . Albumin (test code = 3.5 g/dL 3.5-5 04781-1) Alkaline Phosphatase 44 U/L 40-150 (test code = 6768-6) Total Bilirubin (test 0.3 mg/dL 0.2-1.2 code = 1974-2) Sodium (test code = 139 meq/L 947-429 2967-2) Potassium (test code 3.8 meq/L 3.5-5.1 = 2823-3) Chloride (test code = 104 meq/L 98-107 2075-0) CO2 (test code = 27 meq/L 22-29 2028-9) BUN (test code = 12 mg/dL 7-21 3094-0) Creatinine (test code 1.05 mg/dL 0.57-1.25 = 2160-0) Glucose (test code = 79 mg/dL 70-105 2345-7) Calcium (test code = 8.4 mg/dL 8.4-10.2 67540-9) AST (test code = 49 U/L 5-34 H 1920-8) ALT (test code = 41 U/L 6-55 1742-6) EGFR (test code = 52 mL/min/1.[address] [place] [address]-4) NOT ACCURATE CREATININE CLEARANCE IN PREDICTING GLOMERULAR FILTRATION RATE . ESTIMATED GFR I S NOT APPLICABLE FOR DIALYSIS PATIEN TS. TORRES (test code = TORRES) Cane Furniture Maker ID - HUMBLE Porter Lab Interpretation Abnormal (test code = 24408-4) [facility] HospitalComprehensive metabolic [id number] 06:49:00 Test Item Value Reference Range Interpretation Comments Protein, Total (test 6.8 See_Comment [Autom ated code = 2885-2) message] The system which generated this result transmit lane reference range : 6.0 - 8.3 gm/dL . The reference range was not u sed to interpret th is result as normal/abnormal . Albumin (test code = 3.5 g/dL 3.5-5 96311-0) Alkaline Phosphatase 44 U/L 40-150 (test code = 6768-6) Total Bilirubin (test 0.3 mg/dL 0.2-1.2 code = 1974-2) Sodium (test code = 139 meq/L 554-198 6959-2) Potassium (test code 3.8 meq/L 3.5-5.1 = 2823-3) Chloride (test code = 104 meq/L 98-107 2075-0) CO2 (test code = 27 meq/L 22-29 2028-9) BUN (test code = 12 mg/dL 7-21 3094-0) Creatinine (test code 1.05 mg/dL 0.57-1.25 = 2160-0) Glucose (test code = 79 mg/dL 70-105 2345-7) Calcium (test code = 8.4 mg/dL 8.4-10.2 22609-3) AST (test code = 49 U/L 5-34 H 1920-8) ALT (test code = 41 U/L 6-55 1742-6) EGFR (test code = 52 mL/min/1.73 sq m [facility] [place] [address]-6) NOT ACCURATE CREATININE CLEARANCE IN PREDICTING GLOMERULAR FILTRATION RATE . ESTIMATED GFR I S NOT APPLICABLE FOR DIALYSIS PATIEN TSKenrick TORRES (test code = TORRES) Cane Furniture Maker ID - HUMBLE M Lab Interpretation Abnormal (test code = 63309-3) [facility] HospitalComprehensive metabolic [id number] 06:49:00 Test Item Value Reference Range Interpretation Comments Protein, Total (test 6.8 See_Comment [Autom ated code = 2885-2) message] The system which generated this result transmit lane reference range : 6.0 - 8.3 gm/dL . The reference range was not u sed to interpret th is result as normal/abnormal . Albumin (test code = 3.5 g/dL 3.5-5 88761-4) Alkaline Phosphatase 44 U/L 40-150 (test code = 6768-6) Total Bilirubin (test 0.3 mg/dL 0.2-1.2 code = 1974-) Sodium (test code = 139 meq/L 384-808 1762-2) Potassium (test code 3.8 meq/L 3.5-5.1 = 2823-3) Chloride (test code = 104 meq/L 98-107 2074-0) CO2 (test code = 27 meq/L -2028-05) BUN (test code = 12 mg/dL 7-21 3094-0) Creatinine (test code 1.05 mg/dL 0.57-1.25 = 2160-0) Glucose (test code = 79 mg/dL 70-105 2345-7) Calcium (test code = 8.4 mg/dL 8.4-10.2 49990-5) AST (test code = 49 U/L 5-34 H 192-8) ALT (test code = 41 U/L 6-55 1742-6) EGFR (test code = 52 mL/min/1.[address] [place] [address]-5) NOT ACCURATE CREATININE CLEARANCE IN PREDICTING GLOMERULAR FILTRATION RATE . ESTIMATED GFR I S NOT APPLICABLE FOR DIALYSIS PATIEN TSKenrick TORRES (test code = TORRES) Cane Furniture Maker ID - HUMBLE M Lab Interpretation Abnormal (test code = 13234-0) [facility]Com[facility] metabolic [id number] 06:49:00 Test Item Value Reference Range Interpretation Comments Protein, Total (test 6.8 See_Comment [Autom ated code = 2885-2) message] The system which generated this result transmit lane reference range : 6.0 - 8.3 gm/dL . The reference range was not u sed to interpret th is result as normal/abnormal . Albumin (test code = 3.5 g/dL 3.5-5 31800-4) Alkaline Phosphatase 44 U/L 40-150 (test code = 6768-6) Total Bilirubin (test 0.3 mg/dL 0.2-1.2 code = 1974-10) Sodium (test code = 139 meq/L 707-911 8839-2) Potassium (test code 3.8 meq/L 3.5-5.1 = 2823-3) Chloride (test code = 104 meq/L 98-107 2074-0) CO2 (test code = 27 meq/L -29 2028-9) BUN (test code = 12 mg/dL 7-21 3094-0) Creatinine (test code 1.05 mg/dL 0.57-1.25 = 2160-0) Glucose (test code = 79 mg/dL 70-105 2345-7) Calcium (test code = 8.4 mg/dL 8.4-10.2 01039-5) AST (test code = 49 U/L 5-34 H 1920-8) ALT (test code = 41 U/L 6-55 1742-6) EGFR (test code = 52 mL/min/1.[address] [place] [address]-7) NOT ACCURATE CREATININE CLEARANCE IN PREDICTING GLOMERULAR FILTRATION RATE . ESTIMATED GFR I S NOT APPLICABLE FOR DIALYSIS PATIEN TORRES (test code = TORRES) Cane Furniture Maker ID - HUMBLE Porter Lab Interpretation Abnormal (test code = 13592-9) [facility] HospitalCOMPREHENSIVE METABOLIC [id number] 06:49:00 Test Item Value Reference Range Interpretation [...] = 382) CO2 (BEAKER) (test 27 meq/L code = 355) BLOOD UREA NITROGEN 12 mg/dL 7-21 (BEAKER) (test code = 354) CREATININE (BEAKER) 1.05 mg/dL 0.57-1.25 (test code = 358) GLUCOSE RANDOM 79 mg/dL 70-105 (BEAKER) (test code = 652) CALCIUM (BEAKER) 8.4 mg/dL 8.4-10.2 (test code = 697) AST (SGOT) (BEAKER) 49 U/L 5-34 H (test code = 353) ALT (SGPT) ([facility]) 41 U/L 6-55 (test code = 347) EGFR ([facility]) (test 52 mL/min/1.[address] GFR IS code = 1092) sq m NOT ACCURATE CREATININE CLEARANCE IN PREDICTING GLOMERULAR FILTRATION RATE . ESTIMATED GFR I S NOT APPLICABLE FOR DIALYSIS PATIEN TS. Cane Furniture Maker ID - HUMBLE MPOCT-GLUCOSE [id number] 16:54:00 Test Item Value Reference Range Interpretation Comments POC-GLUCOSE METER 171 mg/dL 70-110 H : TESTED A T [facility] 6720 ([place]) (test code = [place], 1538) [address]: Cane Furniture Maker/Techni aldo ID = [id number] for ALBINO GONZALEZ Hemoglobin [id number] 15:22:00 Test Item Value Reference Range Interpretation Comments Hemoglobin A1C (test code = 4548-4) 6.2 % 4.3-6.1 H Lab Interpretation (test code = Abnormal 73177-1) [facility] HospitalHemoglobin [id number] 15:22:00 Test Item Value Reference Range Interpretation Comments Hemoglobin A1C (test code = 4548-4) 6.2 % 4.3-6.1 H Lab Interpretation (test code = Abnormal 79805-8) [facility]em[facility] [id number] 15:22:00 Test Item Value Reference Range Interpretation Comments Hemoglobin A1C (test code = 4548-4) 6.2 % 4.3-6.1 H Lab Interpretation (test code = Abnormal 25885-1) [facility] [id number] 15:22:00 Test Item Value Reference Range Interpretation Comments Hemoglobin A1C (test code = 4548-4) 6.2 % 4.3-6.1 H Lab Interpretation (test code = Abnormal 38955-4) [facility]HEMOGLOBIN [id number] 15:22:00 Test Item Value Reference Range Interpretation Comments HEMOGLOBIN A1C (BEAKER) (test code = 6.2 % 4.3-6.1 H 368) POCT-GLUCOSE [id number] 12:56:00 Test Item Value Reference Range Interpretation Comments POC-GLUCOSE METER 93 mg/dL 70-110 : Notified RN/MD: TESTED (LIA) (test code = [facility] [address] [facility], [address] 30: Cane Furniture Maker/Techni aldo ID = [id number] for Arely Correa [place], [id number] 12:02:00Reason for exam:->ERCP tomorrow [facility] : 1950 Sex: FFluoroscopic unit utilized for a procedure performed in the OR. No interpretation was requested. Refer to theoperative report for findings. Refer to PACS for patient radiation dose information.FL Endoscopic Retrograde Sfrj[id number] 12:02:00Interface, External Ris In - 03/10/2021 12:18 PM CDTFluoroscopic unit utilized for a procedure performed in the OR. No interpretation was requested. Refer to the operative report for findings. Refer toPACS for patient radiation dose information.[facility] Endoscopic Retrograde Ccasx[id number] 12:02:00Interface, External Ris In - 03/10/2021 12:18 PM CDTFluoroscopic unit utilized for a procedure performed in the OR. No interpretation was requested. Refer to the operative report for findings. Refer toPACS for patient radiation dose information.[facility] Endoscopic Retrograde Rkrly[id number] 12:02:00Interface, External Ris In - 03/10/2021 12:18 PM CDTFluoroscopic unit utilized for a procedure performed in the OR. No interpretation was requested. Refer to the operative report for findings. Refer toPACS for patient radiation dose information.[facility]FL [facility] Bnpjtaqdfzwgvgxggoajdvbd0420-63-39 12:02:00Interface, External Ris In - 03/10/2021 12:18 PM CDTFluoroscopic unit utilized for a procedure performed in the OR. No interpretation was requested. Refer to the operative report for findings. Refer [facility] for patient radiation dose information.[facility] HospitalPOCT-GLUCOSE [id number] 09:27:00 Test Item Value Reference Range Interpretation Comments POC-GLUCOSE METER 74 mg/dL 70-110 : TESTED A T [facility] 6720 (BEAKER) (test code = JALENCHANA Kaba [facility], 1538) [address]: Cane Furniture Maker/Techni aldo ID = [id number] for ALBINO ROSS COMPREHENSIVE METABOLIC [id number] 05:49:00 Test Item Value Reference Range Interpretation [...] S NOT APPLICABLE FOR DIALYSIS PATIEN TS. Cane Furniture Maker ID - HUMBLE BC (Hemogram only)2021-03-10 05:10:00 Test Item Value Reference Range Interpretation Comments WBC (test code = 6690-2) 9.1 See_Comment [A utomated message] The system b3 bio generated this result transmitted ref erence range: 3.5 - 10 .5 K/L. The refe rence range was not u sed to interpret this result as normal/abnor mal. RBC (test code = 789-8) 3.57 See_Comment L [Au tomated message] The system b3 bio generated this result transmitted ref erence range: 3.93 - 5 .22 M/L. The refe rence range was not u sed to interpret this result as normal/abnor mal. MCHC (test code = 786-4) 30.9 See_Comment L [A utomated message] The system b3 bio generated this result transmitted ref erence range: [...] See_Comment [Aut omated message] 777-3) The system b3 bio generated this result transmitted ref erence range: 150 - 45 0 K/CU MM. The referen ce range was not u sed to interpret this result as normal/abnor mal. MPV (test code = 9.3 fL 9.4-12.3 L 69775-2) nRBC (test code = 413) 0 See_Comment [Aut omated message] The system b3 bio generated this result transmitted ref erence range: 0 - 0 /1 00 WBC. The refere nce range was not u sed to interpret this result as normal/abnor mal. Lab Interpretation (test Abnormal code = 02554-5) [facility]CBC ([facility]emogram only)2021-03-10 05:10:00 Test Item Value Reference Range Interpretation Comments WBC (test code = 6690-2) 9.1 See_Comment [A utomated message] The system b3 bio generated this result transmitted ref erence range: 3.5 - 10 .5 K/L. The refe rence range was not u sed to interpret this result as normal/abnor mal. RBC (test code = 789-8) 3.57 See_Comment L [Au tomated message] The system b3 bio generated this result transmitted ref erence range: 3.93 - 5 .22 M/L. The refe rence range was not u sed to interpret this result as normal/abnor mal. MCHC (test code = 786-4) 30.9 See_Comment L [A utomated message] The system b3 bio generated this result transmitted ref erence range: [...] See_Comment [Aut omated message] 777-3) The system b3 bio generated this result transmitted ref erence range: 150 - 45 0 K/CU MM. The referen ce range was not u sed to interpret this result as normal/abnor mal. MPV (test code = 9.3 fL 9.4-12.3 L 25872-5) nRBC (test code = 413) 0 See_Comment [Aut omated message] The system b3 bio generated this result transmitted ref erence range: 0 - 0 /1 00 WBC. The refere nce range was not u sed to interpret this result as normal/abnor mal. Lab Interpretation (test Abnormal code = 89359-2) [facility]CBC [facility]ogram only)2021-03-10 05:10:00 Test Item Value Reference Range Interpretation Comments WBC (test code = 6690-2) 9.1 See_Comment [A utomated message] The system b3 bio generated this result transmitted ref erence range: 3.5 - 10 .5 K/L. The refe rence range was not u sed to interpret this result as normal/abnor mal. RBC (test code = 789-8) 3.57 See_Comment L [Au tomated message] The system b3 bio generated this result transmitted ref erence range: 3.93 - 5 .22 M/L. The refe rence range was not u sed to interpret this result as normal/abnor mal. MCHC (test code = 786-4) 30.9 See_Comment L [A utomated message] The system b3 bio generated this result transmitted ref erence range: [...] See_Comment [Aut omated message] 777-3) The system b3 bio generated this result transmitted ref erence range: 150 - 45 0 K/CU MM. The referen ce range was not u sed to interpret this result as normal/abnor mal. MPV (test code = 9.3 fL 9.4-12.3 L 39785-2) nRBC (test code = 413) 0 See_Comment [Aut omated message] The system b3 bio generated this result transmitted ref erence range: 0 - 0 /1 00 WBC. The refere nce range was not u sed to interpret this result as normal/abnor mal. Lab Interpretation (test Abnormal code = 18536-6) [facility] (Hemogram only)2021-03-10 05:10:00 Test Item Value Reference Range Interpretation Comments WBC (test code = 6690-2) 9.1 See_Comment [A utomated message] The system b3 bio generated this result transmitted ref erence range: 3.5 - 10 .5 K/L. The refe rence range was not u sed to interpret this result as normal/abnor mal. RBC (test code = 789-8) 3.57 See_Comment L [Au tomated message] The system b3 bio generated this result transmitted ref erence range: 3.93 - 5 .22 M/L. The refe rence range was not u sed to interpret this result as normal/abnor mal. MCHC (test code = 786-4) 30.9 See_Comment L [A utomated message] The system b3 bio generated this result transmitted ref erence range: [...] See_Comment [Aut omated message] 777-3) The system b3 bio generated this result transmitted ref erence range: 150 - 45 0 K/CU MM. The referen ce range was not u sed to interpret this result as normal/abnor mal. MPV (test code = 9.3 fL 9.4-12.3 L 90382-7) nRBC (test code = 413) 0 See_Comment [Aut omated message] The system b3 bio generated this result transmitted ref erence range: 0 - 0 /1 00 WBC. The refere nce range was not u sed to interpret this result as normal/abnor mal. Lab Interpretation (test Abnormal code = 95318-6) [facility] (HEMOGRAM ONLY)2021-03-10 05:10:00 Test Item [...] 0-0 (BEAKER) (test code = 413) POCT-GLUCOSE [id number] 00:05:00 Test Item Value Reference Range Interpretation Comments POC-GLUCOSE METER 83 mg/dL 70-110 : TESTED A T [facility] 6720 (BEAKER) (test code = [place], 1538) [address]: Cane Furniture Maker/Techni aldo ID = [id number] for BRENDA VENCES SARS-COV2/RT-PCR ([facility])2021-03-09 23:58:00 Test Item Value Reference Range Interpretation Comments SARS-COV2/RT-PCR (test Negative Not Detected, Negative, code = 7809628) See external report for linked test SARS-COV-2 PERFORMING LAB [facility] SHIV (test code = 6632791) Negative result for this test determines that [...] of the Act.Fact Sheet for Healthcare Prov iders:https://www.[employer]/sites/default/files/product/documents/Fact_Sheet_HC _Vyrfoycbe_Ovxz_JQPE-VzD-9.pdfFact Sheet for Healthcare Patients:https://www.mL[employer]/sites/default/files/product/docume nts/Gvac_Ietwg_Jwaqqgos_Nfuo_QOWP-GxO-5.pdfPerforming Laboratory:[facility], [place] [address]WKVI-TDDVCRH METER 2021-03-09 17:34:00 Test Item Value Reference Range Interpretation Comments POC-GLUCOSE METER 97 mg/dL 70-110 : TESTED A T [facility] 6720 (ZONIACATALINA) (test code = [place], 1538) [address]: Cane Furniture Maker/Techni aldo ID = [id number] for ALBINO ROSS MR, ABDOMEN, [id number] 17:11:00Unlisted Reason for Exam - Click Yes and Enter Reason Below->NoPatient with hyperdense material seen in distal CBD on CTA performed [place] [facility] THI : 1950 Sex: FFINAL REPORT MR, ABDOMEN, MRCP HISTORY: Biliary obstruction suspected COMPARISON: CT abdomen 12/29/2005 TECHNIQUE: MRI of the abdomen with exam tailored to evaluate the biliary tree and thepancreas. Multiplanar, multisequence images, including heavily T2-weighted MRCP sequences were obtain ed. FINDINGS: Bile ducts: Moderate intra and extrahepatic [...] duodenal diverticulum. Nondilated bowel with no wall thi ckening.Lymph nodes: Unremarkable.Peritoneum: Unremarkable.Vessels: UnremarkableAbdominal wall: Unremarkable.Bones: Mild compression deformity at L1 without marrow edema. IMPRESSION: A T1 hyperintense filling defect in the common bile duct, most likely a pigmented gallstone. Moderate intra and extrahepatic biliary ductal dilation. Hepatic steatosis. A mild compression deformity at L1 is new since CT 12/29/2005 but appears chronic Signed: Ashely Peralta Verified Date/Time: 03/09/2021 17:11:18 Reading Location: [facility]1 C013T Transitional Reading Room Electronically signed by: ASHELY PERALTA MDon 03/09/2021 05:11 PMMR abdomen without IV contrast [id number] 17:11:00 Interface, External Ris In - 03/09/2021 [...] 12/29/2005 but appears chronic Signed: Ashely Peralta [facility] Verified Date/Time: 03/09/2021 17:11:18 Reading Location: [facility] C013T [facility] [id number] 17:11:00Interface, External Ris In - 03/09/2021 5:13 [...] MDReport Verified Date/Time: 03/09/2021 17:11:18 Reading Location: [address] Transitional [facility] without IV contrast [id number] 17:11:00Interface, External Ris In - 03/09/2021 5:13 [...] Peraltaeport Verified Date/Time: 03/09/2021 17:11:18 Reading Location: [address] [facility] without IV contrast [id number] 17:11:00Interface, External Ris In - 03/09/2021 5:13 [...] MDReport Verified Date/Time: 03/09/2021 17:11:18 Reading Location: [facility] C013T Transitional Reading [facility] [id number] 12:41:00 Test Item Value Reference Range Interpretation Comments POC-GLUCOSE METER 92 mg/dL 70-110 : TESTED A T [facility] 6720 (BEAKER) (test code = [place], 1538) [address]: Cane Furniture Maker/Techni aldo ID = [id number] for PARESH NO ALBINO Urinalysis w/Microscopic + Reflex to [id number] 11:21:00 Test Item Value Reference Range Interpretation Comments Color, UA (test code Light Yellow = 5778-6) Clarity, UA (test Clear code = 5767-9) Specific [place], UA 1.033 1.001-1.035 (test code = 5811-5) pH, UA (test code = 5.5 5.0-8.0 5803-2) Protein, UA (test Negative Negative code = 79778-8) Glucose, UA (test Negative Negative code = 365) Ketones, UA (test Negative Negative code = 2514-8) Bilirubin, UA (test Negative Negative code = 43941-3) Blood, UA (test code Trace Negative A = 45521-1) Nitrite, UA (test Negative Negative code = 5802-4) Leukocytes, UA (test Negative Negative code = 5799-2) Urobilinogen, UA 0.2 mg/dL 0.2-1 (test code = 46554-6) RBC, UA (test code = 2 See_Comment [Autom ated 30853-9) message] The system which generated this result [...] Bacteria, UA (test None Seen code = 36322-8) Mucus (test code = Rare 8247-9) Squam Epithel, UA 1 See_Comment [Automate d (test code = 12939-4) messag e] The system which generated this result transmit lane reference range : /HPF. The reference range was not used to interpret this result as normal/abnormal . Crystals, Urine (test None Seen code = 67621-4) Specimen Source (test code = 2795) TORRES (test code = TORRES) Cane Furniture Maker ID - [auto]Cane Furniture Maker ID - tech Lab Interpretation Abnormal (test code = 96597-6) [facility] HospitalUrinalysis w/Microscopic + Reflex to Culture 2021-03-09 11:21:00 Test Item Value Reference Range Interpretation Comments Color, UA (test code Light Yellow = 5778-6) Clarity, UA (test Clear code = 5767-9) Specific [place], UA 1.033 1.001-1.035 (test code = 5811-5) pH, UA (test code = 5.5 5.0-8.0 5803-2) Protein, UA (test Negative Negative code = 96037-0) Glucose, UA (test Negative Negative code = 365) Ketones, UA (test Negative Negative code = 2514-8) Bilirubin, UA (test Negative Negative code = 60842-1) Blood, UA (test code Trace Negative A = 85131-9) Nitrite, UA (test Negative Negative code = 5802-4) Leukocytes, UA (test Negative Negative code = 5799-2) Urobilinogen, UA 0.2 mg/dL 0.2-1 (test code = 03049-4) RBC, UA (test code = 2 See_Comment [Autom ated 78022-4) message] The system which generated this result [...] Bacteria, UA (test None Seen code = 87575-4) Mucus (test code = Rare 8247-9) Squam Epithel, UA 1 See_Comment [Automate d (test code = 50120-9) messag e] The system which generated this result transmit lane reference range : /HPF. The reference range was not used to interpret this result as normal/abnormal . Crystals, Urine (test None Seen code = 32497-6) Specimen Source (test code = 2795) TORRES (test code = TORRES) Cane Furniture Maker ID - [auto]Cane Furniture Maker ID - tech Lab Interpretation Abnormal (test code = 95286-9) [facility]Urinal[facility] w/Microscopic + Reflex to Culture 2021-03-09 11:21:00 Test Item Value Reference Range Interpretation Comments Color, UA (test code Light Yellow = 5778-6) Clarity, UA (test Clear code = 5767-9) Specific [place], UA 1.033 1.001-1.035 (test code = 5811-5) pH, UA (test code = 5.5 5.0-8.0 5803-2) Protein, UA (test Negative Negative code = 14019-6) Glucose, UA (test Negative Negative code = 365) Ketones, UA (test Negative Negative code = 2514-8) Bilirubin, UA (test Negative Negative code = 01684-3) Blood, UA (test code Trace Negative A = 90024-7) Nitrite, UA (test Negative Negative code = 5802-4) Leukocytes, UA (test Negative Negative code = 5799-2) Urobilinogen, UA 0.2 mg/dL 0.2-1 (test code = 67352-5) RBC, UA (test code = 2 See_Comment [Autom ated 26836-9) message] The system which generated this result [...] Bacteria, UA (test None Seen code = 96127-9) Mucus (test code = Rare 8247-9) Squam Epithel, UA 1 See_Comment [Automate d (test code = 10781-6) messag e] The system which generated this result transmit lane reference range : /HPF. The reference range was not used to interpret this result as normal/abnormal . Crystals, Urine (test None Seen code = 06860-0) Specimen Source (test code = 2795) TORRES (test code = TORRES) Cane Furniture Maker ID - [auto]Cane Furniture Maker ID - tech Lab Interpretation Abnormal (test code = 13850-4) [facility] HospitalUrinalysis w/Microscopic + Reflex to Culture 2021-03-09 11:21:00 Test Item Value Reference Range Interpretation Comments Color, UA (test code Light Yellow = 5778-6) Clarity, UA (test Clear code = 5767-9) Specific [place], UA 1.033 1.001-1.035 (test code = 5811-5) pH, UA (test code = 5.5 5.0-8.0 5803-2) Protein, UA (test Negative Negative code = 28406-2) Glucose, UA (test Negative Negative code = 365) Ketones, UA (test Negative Negative code = 2514-8) Bilirubin, UA (test Negative Negative code = 80523-6) Blood, UA (test code Trace Negative A = 86394-6) Nitrite, UA (test Negative Negative code = 5802-4) Leukocytes, UA (test Negative Negative code = 5799-2) Urobilinogen, UA 0.2 mg/dL 0.2-1 (test code = 09164-7) RBC, UA (test code = 2 See_Comment [Autom ated 49731-5) message] The system which generated this result [...] Bacteria, UA (test None Seen code = 87438-7) Mucus (test code = Rare 8247-9) Squam Epithel, UA 1 See_Comment [Automate d (test code = 25013-7) messag e] The system which generated this result transmit lane reference range : /HPF. The reference range was not used to interpret this result as normal/abnormal . Crystals, Urine (test None Seen code = 12631-3) Specimen Source (test code = 2795) TORRES (test code = TORRES) Cane Furniture Maker ID - [auto]Cane Furniture Maker ID - tech Lab Interpretation Abnormal (test code = 22793-5) [facility] HospitalURINALYSIS W/ REFLEX URINE [id number] 11:21:00 Test Item Value Reference Range Interpretation [...] = 1521) SOURCE(BEAKER) (test code = 2795) Cane Furniture Maker ID - [auto]Cane Furniture Maker ID - techHEMOGLOBIN [id number] 10:22:00 Test Item Value Reference Range Interpretation Comments HEMOGLOBIN A1C (BEAKER) (test code = 6.1 % 4.3-6.1 368) [id number] 06:48:00 Test Item Value Reference Range Interpretation Comments Magnesium (test code = 2.1 mg/dL 1.6-2.6 98028-7) TORRES (test code = TORRES) Cane Furniture Maker ID - ELVIN W Lab Interpretation (test Normal code = 63370-5) [facility] HospitalMagnesium2021-06-28 06:48:00 Test Item Value Reference Range Interpretation Comments Magnesium (test code = 2.1 mg/dL 1.6-2.6 43297-2) TORRES (test code = TORRES) Cane Furniture Maker ID - ELVIN W Lab Interpretation (test Normal code = 92114-2) [facility] HospitalMagnesium2021-06-28 06:48:00 Test Item Value Reference Range Interpretation Comments Magnesium (test code = 2.1 mg/dL 1.6-2.6 67454-2) TORRES (test code = TORRES) Cane Furniture Maker ID Carlo OCONNOR W Lab Interpretation (test Normal code = 65181-7) [facility] HospitalMagnesium2021-06-28 06:48:00 Test Item Value Reference Range Interpretation Comments Magnesium (test code = 2.1 mg/dL 1.6-2.6 10434-4) TORRES (test code = TORRES) Cane Furniture Maker ID Carlo OCONNOR W Lab Interpretation (test Normal code = 53623-4) [facility] HospitalBASIC METABOLIC [id number] 06:48:00 Test Item Value Reference Range Interpretation [...] S NOT APPLICABLE FOR DIALYSIS PATIEN TS. Cane Furniture Maker ID - ELVIN [id number] 06:48:00 Test Item Value Reference Range Interpretation Comments MAGNESIUM (BEAKER) (test code = 2.1 mg/dL 1.6-2.6 627) Cane Furniture Maker ID Carlo OCONNOR WHEPATIC FUNCTION [id number] 06:48:00 Test Item Value Reference Range Interpretation [...] (test code = 30 U/L 6-55 347) Cane Furniture Maker ID - ELVIN WPROTHROMBIN TIME/[id number] 06:32:00 Test Item Value Reference Range Interpretation Comments PROTIME (BEAKER) 12.9 seconds 11.9-14.2 (test code = 759) INR (BEAKER) (test 0.99 See_Comment [Automat ed message] code = 370) The system b3 bio generated this result transmitted ref erence range: <=5.90. The reference range was not used to int erpret this result as normal/abnormal . RECOMMENDED COUMADIN/WARFARIN INR THERAPY RANGESSTANDARD DOSE: 2.0 - 3.0 Includes: PROPHYLAXIS for venous thrombosis, systemic embolization; TREATMENT for venous thrombosis and/or pulmonary embolus.HIGH RISK: Target INR is 2.5-3.5 for patients with mechanical heart valves.CBC W/PLT COUNT & AUTO [id number] 06:29:00 Test Item Value Reference Range Interpretation [...] code = 2801) MRI Brain wo contrast [id number] 16:25:00Patient Name: ALBERTO VERA: 1950. Age: 67 years. Gender: Female.MR: [id number]. Location: [facility]. Provider: Hollie Acuña MD.EXAM: Brain [...] abnormality. Mild chronic microangiopathic ischemic gliosis. SL: [id number]--Qnbg by: Finesse Dias MDDictated Date/time: 02/08/18 17:31Electronically Signed by: Finesse Dias MD 02/08/1817:40[facility]wo [facility] [id number] 2018-02-08 13:39:00 Test Item Value Reference Range Interpretation Comments Brain w/wo contrast MRI Cancel Reason: Exam (test code = Brain w/wo Replaced contrast MRI) [place] Physicians Notes Date/Time Note Provider Source 2023-04-22 Formatting of this note might be differe nt from the original. Radha Smith [facility] 10:13:02-00:00 Scheduled with UROGYN Electronically signed by Radha Smith at 07/2023 10:13 AM CDT 2023-04-22 Formatting of this note might be differe nt from the original. Adrianne Montiel [facility] 09:17:50-00:00 Alberto Luna is a 72 year old female Daughter of the patient is c alling to schedule her an appointment with provider after being seen in the ED yesterday 04/21 - stat referral was placed; scheduled for soonest appt on 05/13 but daughter of patient is asking if there is anything before then, to call her back. Please be advised. [phone] (home) Electronically signed by Adrianne Montiel at 9:20 AM T 2023-04-21 Formatting of this note might be differe nt from the original. Dena Caberra RN [facility] 22:46:40-00:00 Pt discharged home. Son give n all education and information regarding management; importance of specialty follow up ; and s/s of worsening condition. Pt vss. Escorted to sons vehicle via w/c and assisted into truck. No further concerns. Electronically signed by Dena Cabrera RN at 0 04/21/2023 10:47 PM CDT 2023-04-21 [facility] 19:42:06-00:00 Bladder scan performed at Dr Arellano's request. Residual of 387 CC urine in bladder. Dr Arellano informed T 2023-04-21 [facility] 18:31:33-00:00 Patient assisted OOB to BSC to void 500 cc clear yellow urine. Patient able to stand and pivot to BSC with assist x2. Urine specimen obtained for ordered exams T 2023-04-21 Formatting of this note might be differe nt from the original. Douglas Agustin RN [facility] 16:51:57-00:00 Onset left abdominal pain to day. . Patient holding left abdomen, C/O severe pain T 2023-04-21 Formatting of this note is different from the or iginal. [facility] 16:45:00-00:00 [facility] Emergency Department Note Patient Name: Alberto Luna Date of : 1950 72 year old female Treatment Room: TX6/TX6 Primary Care Physician: Jaime Jamison Patient Escorted by: Self [9] Mode of Arrival: EMS - Central [45] EMS Treatment Prior to ED Arrival: ORGAN RECOVERY COORDINATOR treatment: Other (comment);Saline lock ORGAN RECOVERY COORDINATOR treatment comments: Zofran 4 mg IV by EMs, H ydrocodone at 1300 by family Travel and Exposure Screening: Symptoms Does patient have any of these symptoms?: (not r ecorded) Exposure Screening Has patient had contact with someone with a communicable disease in the last month?: (not recorded) Diseases exposed to:: (not recorded) Is Patient ?: (not recorded) Exposure Date: (not recorded) Chief Complaint: Chief Complaint Patient presents with Abdominal Pain History of Present Illness: The patient presents from [facility] with EMS for evaluation for left upper quadrant abdominal pain that started today. She is complained of nausea at home but has not been vomiting. No diarrhea. No dysuria o r hematuria. No fevers or ch ills. She was seen at [facility] yesterday for a headache. She has had some rice today to eat that has not made her pain better or worse. She had a previous gallbl adder removal as well is an ex lap many years ago. She does have a history of depression, insomnia as well as blood pressure but no history of diabetes. She does not take any blood thinners. No chest pa in or pressure. No shortness of breath. No cough or URI symptoms. No medications taken for pain prior to arrival. Here for evaluation. Past Medical History/Immunizations: Past Medical History: Diagnosis Date Hypertension Osteoporosis Tetanus received in last 5 years: Unknown Childhood immunizations: Up-to-date Allergies: No Known Allergies Past Social History: Tobacco Use Never smoked or used smokeless tobacco. Alcohol Use No. Drug Use No. Past Surgical History: Past Surgical History: Procedure Laterality Date CHOLECYSTECTOMY HYSTERECTOMY Review of Systems: Review of Systems Constitutional: Negative for chills and fever. Respiratory: Negative for cough and shortness of breath. Cardiovascular: Positive for chest pain. Gastrointestinal: Negative for abdominal pain, n ausea and vomiting. Genitourinary: Negative for dysuria. Musculoskeletal: Negative for arthralgias, neck pain and neck stiffness. Skin: Negative for wound. Neurological: Negative for dizziness. Psychiatric/Behavioral: Negative for agitation. Endocrine: Negative for goiter. Physical Exam: ED Triage Vitals [04/21/23 1646] Weight 68 kg (150 lb) Actual or estimated Estimated by healthcare prov ider Height 1.524 m (5') BP (!) 154/93 Pulse 87 Resp 16 Temp 36.8 ?C (98.2 ?F) Temp source Oral SpO2 98 % Measured on Room air Physical Exam Vitals and nursing note reviewed. Constitutional: Appearance: Normal appearance. She is normal we ight. HENT: Head: Normocephalic and atraumatic. Cardiovascular: Rate and Rhythm: Normal rate and regular rhythm . Pulses: Normal pulses. Pulmonary: Effort: Pulmonary effort is normal. No respirat ory distress. Breath sounds: No stridor. No wheezing or rhonc hi. Abdominal: Palpations: Abdomen is soft. There is no mass. Tenderness: There is abdominal tenderness. Ther e is no guarding or rebound. Musculoskeletal: General: Normal range of motion. Cervical back: Normal range of motion and neck supple. Skin: General: Skin is warm and dry. Neurological: General: No focal deficit present. Mental Status: She is alert. Radiology: No orders to display Lab Results: Lab Results CBC WITH DIFF - Abnormal Result Value Ref Range WBC 10.99 4.30 - 11.10 10*3/?L RBC 3.83 (*) 3.93 - 5.25 10*6/?L HGB 11.2 (*) 11.6 - 15.0 g/dL HCT 34.4 (*) 35.7 - 45.2 % MCV 89.8 80.6 - 95.5 fL MCH 29.2 25.9 - 32.8 pg MCHC 32.6 31.6 - 35.1 g/dL RDW-SD 46.1 39.0 - 49.9 fL RDW-CV 14.3 12.0 - 15.5 % PLT 317 166 - 358 10*3/?L MPV 9.1 (*) 9.5 - 12.9 fL NRBC/100 WBC 0.0 0.0 - 10.0 /100 WBCs NRBC x10^3 <0.01 10*3/?L GRAN MAT (NEUT) % 78.1 % IMM GRAN % 0.60 % LYMPH % 14.7 % MONO % 5.8 % EOS % 0.5 % BASO % 0.3 % GRAN MAT x10^3(ANC) 8.57 (*) 1.88 - 7.09 10*3/u L IMM GRAN x10^3 0.07 (*) 0.00 - 0.06 10*3/uL LYMPH x10^3 1.62 1.32 - 3.29 10*3/uL MONO x10^3 0.64 0.33 - 0.92 10*3/uL EOS x10^3 0.06 0.03 - 0.39 10*3/uL BASO x10^3 0.03 0.01 - 0.07 10*3/uL COMP. METABOLIC PANEL (52069) - Abnormal NA 140 135 - 145 mmol/L K 4.2 3.5 - 5.0 mmol/L CL 105 98 - 108 mmol/L CO2 TOTAL 24 23 - 31 mmol/L AGAP 11 2 - 16 BUN 20 7 - 23 mg/dL GLUCOSE 138 (*) 70 - 110 mg/dL CREATININE 1.30 (*) 0.50 - 1.04 mg/dL TOTAL BILI 0.3 0.1 - 1.1 mg/dL CALCIUM 8.5 (*) 8.6 - 10.6 mg/dL T PROTEIN 8.4 (*) 6.3 - 8.2 g/dL ALBUMIN 4.4 3.5 - 5.0 g/dL ALK PHOS 64 34 - 122 U/L ALTv 83 (*) 5 - 35 U/L AST(SGOT) 45 (*) 13 - 40 U/L eGFR 40.0 mL/min/1.73m2 URINALYSIS - Abnormal APPEARANCE Clear Clear COLOR Straw (*) Yellow PH 6.0 4.8 - 8.0 SP GRAVITY 1.010 1.003 - 1.030 GLU U QUAL Normal Normal BLOOD 1+ (*) Negative KETONES Negative Negative PROTEIN Negative Negative UROBILIN Normal Normal BILIRUBIN Negative Negative NITRITE Negative Negative LEUK AMISH Negative Negative RBC/HPF 2 0 - 3 HPF WBC/HPF 1 0 - 5 HPF BACTERIA Negative Negative LIPASE - Normal LIPASE 158 0 - 220 U/L MAGNESIUM - Normal MAGNESIUM 2.3 1.7 - 2.4 mg/dL EKG: If EKG completed, see Procedure Note. Orders and Treatments: Orders Placed This Encounter Procedures CT ABDOMEN PELVIS W CONTRAST CBC WITH DIFF COMP. METABOLIC PANEL (51289) LIPASE MAGNESIUM URINALYSIS Orders Placed This Encounter Medications ondansetron (ZOFRAN (PF)) injection 4 mg morpHINE (4 mg/mL) injection 4 mg iopamidol (ISOVUE 370-500 mL) injection 75 mL First Provider Eval: ED Events Date/Time Event User Comments 04/21/231647 Medical Screening Begins KELLE AGUIRRE DO -- 04/21/231647 First Provider Evaluation ELISE Platt DO KELLE -- No notes of EC Admission Criteria type on file. ED COURSE Diagnosis/Impression as of 04/21/232158 Generalized abdominal pain Urinary retention Procedures: Procedures MDM: Medical Decision Making The patient presents from [facility] and EMS for evaluation for left upper quadrant abdominal pain that started this morning. She has been complaining of nausea but has not vomited. No diarrhea. No fevers or chills. No dysuria or hematu guerrero. No medications taken prior to arrival. She lives at home with her family and only speaks Lithuanian. Her daughter is acting as the supervisor hard candy. She has a previous history of a gallbladder removal as wel l as an exploratory laparotomy many years ago. She also has a history of depression, insomnia as well as low blood pressure and intermittently takes lisinopril. No history of diabetes. She was seen at [facility] yesterday for a headache. Vital signs are stable in the ER. Her abdomen is soft but with tenderness in the l eft upper quadrant. She has no rebound or guarding. Differential diagnosis inclu kerry bowel obstruction, diverticulitis, pancreatitis, GERD Will check laboratory studies as well as urinaly sis. Will provide the patient with pain medication in the ER. Will obtain a CT of her abdomen pelvis. Final disposition pending. 1899 -the patient is doing well here in the ER. Her laboratory studies are unremarkable. Her urinalysis is pending as is the result of the CT of her abdomen and pelvis. The patient was signed out to Dr. Arellano pending above. Problems Addressed: Generalized abdominal pain: acute illness or inj ury Amount and/or Complexity of Data Reviewed Independent Historian: EMS Details: daughter Labs: ordered. Decision-making details documente d in ED Course. Radiology: ordered and indep endent interpretation performed. Decision-making details documented in ED Course. Risk Prescription drug management. Parenteral controlled substances. Flowsheet Documentation: Scoring Tools: No data recorded Disposition/Condition: ED Disposition None Discharge Medications: Patient's Medications START taking these medications No medications on file CONTINUE taking these medications which have NOT CHANGED ALENDRONATE 70 MG TABLET Take 70 mg by mouth we ekly. ALPRAZOLAM (XANAX) 2 MG TAB LET Take 2 mg by mouth at bedtime as needed for Sleep. AMITRIPTYLINE (ELAVIL) 10 MG TABLET Take 10 mg by mouth at bedtime. AMLODIPINE 5 MG TABLET TAKE 1 TABLET (5 MG TOTA L) BY MOUTH DAILY. CIPROFLOXACIN HCL (CIPRO) 5 00 MG TABLET Take 1 Tab by mouth 2 (two) times daily. CITALOPRAM 20 MG TABLET Take 20 mg by mouth medhat ry morning. CYANOCOBALAMIN 1,000 MCG/ML INJECTION I NJECT 1 ML INTRAMUSCULARLY EVERY MONTH GABAPENTIN (NEURONTIN) 600 MG TABLET TAKE 1 TAB LET BY MOUTH EVERY 8 HOURS HYDROCODONE-ACETAMINOPHEN 7 .5-325 MG PER TABLET Take 1 tablet by mouth in the morning and 1 tablet at noon and 1 tablet in the evening. LACTULOSE 10 GRAM/15 ML SOLUTION LISINOPRIL, BULK, 100 % POWD LORATADINE 10 MG TABLET Take 10 mg by mouth in the morning. MELOXICAM (MOBIC) 7.5 MG TABLET TAKE 1 TABLET B Y MOUTH TWICE A DAY WITH FOOD MEMANTINE 5 MG TABLET Take 5 mg by mouth in the morning and 5 mg in the evening. METHYLPREDNISOLONE (MEDROL, PB,) 4 MG TABLETS Take 21 tablets by mouth SEE- INSTRUCTIONS. follow package directions MORPHINE (AVINZA) 30 MG 24 HR CAPSULE Take 30 m g by mouth daily. MORPHINE I.R. (MSIR) 30 MG TABLET TK 1 AND 1/2 TS PO BID. PROMETHAZINE-DEXTROMETHORPH AN 6.25-15 MG/5 ML SYRUP GIVE 5 ML BY MOUTH EVERY 6 HOURS NEEDED FOR COUGH RISPERIDONE 0.5 MG TABLET T christopher 0.5 mg by mouth in the morning and 0.5 mg in the evening. TIZANIDINE 4 MG TABLET START taking Modified Medications as Prescribed No medications on file STOP taking these medications No medications on file Follow-up: Electronically signed by: Kelle Aguirre DO 04/21/23 7491
[2023-04-23] MEDS ORDERED: LORazepam 2 MG/ML VIAL ONE (16:34)
[2023-04-23 16:41] LABS: Absolute Lymphocytes (CBC) 2.3 K/uL (0.7-4.9); Hematocrit 37.6 % (36.0-45.0); Lymphocytes % 15.1 % (15.3-44.8); MPV 6.8 fL (7.6-11.3); Platelets 347 thou/uL (152-406); RBC Red Blood Cell Count 4.27 M/uL (3.86-4.86)
[2023-04-23 16:50] LABS: SARS-CoV-2 Antigen Rapid Res Negative (Negative)
[2023-04-23 16:55] LABS: Potassium 4.7 mEq/L (3.5-5.1); Troponin High Sensitivity 4.7 pg/mL (<58.9)
--- NOTE | 2023-04-23 17:08 | RAD REPORT ---
EXAM DESCRIPTION: RADChest Single View04/23/2023 4:54 pm CLINICAL HISTORY: SOB COMPARISON: Chest Single View dated 04/20/2023; Chest Single View dated 04/14/2023; Chest Single View da lane 04/01/2023; Chest Single View dated 03/28/2023 TECHNIQUE: Portable AP view of the chest. FINDINGS: The lungs are clear.Left basilar atelectasis, stable. No pneumothorax or effusion. The car diomediastinal contours are unremarkable. IMPRESSION: No acute cardiopulmonary process.
[2023-04-23] MEDS ORDERED: ONDANSETRON 4 MG/2 ML VIAL ONE (17:55)
[2023-04-23] MEDS ORDERED: MORPHINE 4 MG/ML SYR ONE ×2 (17:55→18:06)
[2023-04-23] MEDS ORDERED: ONDANSETRON 4 MG (ODT) TAB ONE (18:07)
--- NOTE | 2023-04-23 18:45 | RAD REPORT ---
EXAM DESCRIPTION: CT - Abdomen Pelvis Wo Contrast - 04/23/2023 5:58 pm CLINICAL HISTORY: ABD PAIN COMPARISON: Abdomen Pelvis Wo Contrast dated 01/11/2022; Abdomen Pelvis W Contrast dated 12/24/2021 ; Abdomen Pelvis W Contrast dated 11/03/2021; Abdomen Pelvis W Contrast dated 08/23/2021 TECHNIQUE: Thin cut axial CT imaging of the abdomen and pelvis was performed without IV contrast. Mu ltiplanar reformats were generated and reviewed. All CT scans are performed using dose optimization technique as appropriate and may include automated exposure control or mA/KV adjustment according to patient size. FINDINGS: No suspicious findings in the lung bases. Elevation of the right hemidiaphragm. The liver, spleen, adrenal glands, and pancreas show no suspicious findings. Status post cholecystect lakshmi. Symmetric renal contour, without suspicious parenchymal findings within limits of noncontrast techniq ue. No evidence of radiopaque calculi or hydroureteronephrosis. No dilated bowel loops or bowel wall thickening. No free air, free fluid or inflammatory stranding. N o hernia, mass or bulky lymphadenopathy. The urinary bladder is decompressed with Alejandro catheter in p lace. Right total hip arthroplasty hardware results in prominence streak artifact which limits evaluation N o suspicious bony findings. Chronic L1 anterior wedge compression deformity with sequelae of prior ve rtebral augmentation IMPRESSION: No acute intra-abdominal process. Alejandro catheter present within a decompressed bladder. Streak artifact resulting from right hip arthro plasty hardware limits evaluation of pelvic structures. Other incidental findings as above.
--- NOTE | 2023-04-23 19:01 | ER ---
Nurse's Notes [facility] Name: Alberto Botello Age: 72 yrs Sex: Female : 1950 Arrival Date: 04/23/2023 Time: 16:03 Bed 8 Private MD: Diagnosis: Lower abdominal pain, unspecified Presentation: 04/23 16:15 Chief complaint: EMS states: CHRONIC ABDOMINAL PAIN, NEW GUILLORY PLACED 3 DAYS AGO, bp APPOINTMENT WITH UROLOGY TUESDAY. Coronavirus screen: At this time, the client does not indicate any symptoms associated with coronavirus-19. Ebola Screen: No symptoms or risks identified at this time. Initial Sepsis Screen: Does the patient meet any 2 criteria? No. Patient's initial sepsis screen is negative. Does the patient have a suspected source of infection? No. Patient's initial sepsis screen is negative. Risk Assessment: Do you want to hurt yourself or someone else? Patient reports no desire to harm self or others. Onset of symptoms is unknown. 16:15 Method Of Arrival: EMS: [facility] bp 16:15 Acuity: ART 3 bp Triage Assessment: 16:15 General: Appears distressed, Behavior is cooperative, appropriate for age, anxious. bp Pain: Complains of pain in abdomen. EENT: No deficits noted. Neuro: No deficits noted. Cardiovascular: No deficits noted. Respiratory: No deficits noted. GI: Reports upper abdominal pain. : Guillory in place. Derm: No deficits noted. Musculoskeletal: No deficits noted. Historical: - Allergies: 16:17 No Known Allergies; bp - Home Meds: 16:17 Vitamin D Oral 1000 unit daily [Active]; spironolactone 25 mg Oral tab [Active]; bp gabapentin 600 mg Oral tab 1 tab every 12 hours [Active]; levocetirizine 5 mg Oral tab 1 tab daily [Active]; furosemide 20 mg Oral tab 1 tab daily [Active]; memantine 10 mg Oral tab 1 tab every morning [Active]; [place] 7.5-325 mg Oral tab 1 tab TID [Active]; PreserVision AREDS oral [Active]; lisinopril 10 mg Oral tab 1 tab once daily [Active]; tizanidine 4 mg Oral tab 1 tabs daily [Active]; tamsulosin 0.4 mg Oral capsule 1 cap daily [Active]; risperadone 0.5 1 tab twice a day [Active]; levofloxacin 500 mg Oral tab 1 tab daily [Active]; famotidine 20 mg Oral tab 1 tab daily [Active]; citalopram 20 mg tab 1 tab once daily [Active]; alprazolam 2 mg Oral tab 1 tab nightly [Active]; alendronate 70 mg Oral tab 1 tab every week [Active]; - PMHx: 16:17 Anxiety; Hepatitis; Chronic pain; Osteoporosis; Pancreatitis; Diabetes - NIDDM; bp Hypertension; CHF; - PSHx: 16:17 Total abdominal hysterectomy; Cholecystectomy; hip; bp - Immunization history:: Adult Immunizations up to date. - Social history:: Smoking status: Patient denies any tobacco usage or history of. Screenin:[address] [facility] ED Fall Risk Assessment (Adult) History of falling in the last 3 months, bp including since admission No falls in past 3 months (0 pts). Abuse screen: Denies threats or abuse. Denies injuries from another. Nutritional screening: No deficits noted. Tuberculosis screening: No symptoms or risk factors identified. Assessment: 16:15 General: SEE TRIAGE NOTE. bp 17:13 Reassessment: No changes from previously documented assessment. Patient is alert, bp oriented x 3, equal unlabored respirations, skin warm/dry/pink. 18:30 Reassessment: PT RETURNED FROM CT. bp Vital Signs: 16:15 BP 150 / 87; Pulse 90; Resp 16; Temp 98; Pulse Ox 97% ; bp 17:13 BP 133 / 77; Pulse 91; Resp 16; Pulse Ox 95% ; bp 18:30 BP 154 / 88; Pulse 92; Resp 16; Pulse Ox 97% ; bp Angelita Coma Score: 19:32 Eye Response: spontaneous(4). Motor Response: obeys commands(6). Verbal Response: rv oriented(5). Total: 15. ED Course: 16:05 Patient arrived in ED. sb4 16:05 Kryst[facility] Collier [facility] sb4 16:05 Reji Carson MD is Attending Physician. sb4 16:15 Viral Painter, YOSVANY is Primary Nurse. bp 16:17 Triage completed. bp 16:17 Arm band placed on. bp 16:32 COVID swab sent to lab. Flu and/or RSV swab sent to lab. jl7 16:33 Patient has correct armband on for positive identification. Bed in low position. Call bp light in reach. Side rails up X2. Adult w/ patient. 16:33 Inserted saline lock: 22 gauge in right forearm, using aseptic technique. Blood bp collected. 16:56 Chest Single View XRAY In Process Unspecified. EDMS 17:57 Abdomen In Process Unspecified. EDMS 17:58 No provider procedures requiring assistance completed. IV discontinued, intact, bp bleeding controlled, No redness/swelling at site. Pressure dressing applied. 19:33 Provided Education on: CONSTIPATION, PAIN MEDICINE, PAIN MANAGEMENT. rv Administered Medications: 16:32 Drug: Ativan IVP 0.5 mg Route: IVP; Site: right forearm; bp 17:13 Follow up: Response: No adverse reaction bp 17:00 Drug: NS 0.9% IV 1000 ml Route: IV; Rate: 1 bolus; Site: right forearm; bp 17:54 Drug: morphine IVP or IV 4 mg Route: IVP; Infused Over: 4 mins; Site: right forearm; bp 17:56 Follow up: Response: No adverse reaction bp 17:56 Drug: Ondansetron IVP 4 mg Route: IVP; Site: right forearm; bp 17:57 Follow up: Response: No adverse reaction bp 19:32 Drug: fentaNYL (PF) IM 50 mcg Route: IM; Site: right deltoid; rv 19:32 Follow up: Response: Medication administered at discharge. rv Medication: 19:33 VIS not applicable for this client. rv Outcome: 19:01 Discharge ordered by MD. matute 19:32 Discharged to home ambulatory, with family. rv 19:32 Condition: good 19:32 Discharge instructions given to patient, Instructed on discharge instructions, follow up and referral plans. Demonstrated understanding of instructions, follow-up care. 19:33 Patient left the ED. rv Signatures: Dispatcher [employer] EDJonas Shields RN RN [id number] Viral Painter RN RN Manuel Villaseñor RN RN Krystyna Zhao, PARika PARika sb4
--- NOTE | 2023-04-23 19:02 | EDPHYS ---
Physician Documentation [facility] Name: Alberto Botello Age: 72 yrs Sex: Female : 1950 Arrival Date: 04/23/2023 Time: 16:03 Bed 8 Private MD: ED Physician Reji Carson HPI: 04/23 16:40 This 72 yrs old [place] Female presents to ER via EMS with complaints of abdominal sb4 pain, shortness of breath. 16:47 Patient complains of left lower quadrant abdominal pain. Daughter initially called EMS sb4 because she thought patient was breathing abnormally and wanted her evaluated. Patient is breathing appropriately upon arrival and only complains of her chronic left lower quadrant abdominal pain. Patient was seen at [place] 2 days ago and had some urinary retention and a Rhodes was placed. Rhodes catheter is in place today and she has a scheduled to see urology on Tuesday. She has no urologic complaints at this time other than wanting the Rhodes removed. Historical: - Allergies: 16:17 No Known Allergies; bp - Home Meds: 16:17 Vitamin D Oral 1000 unit daily [Active]; spironolactone 25 mg Oral tab [Active]; bp gabapentin 600 mg Oral tab 1 tab every 12 hours [Active]; levocetirizine 5 mg Oral tab 1 tab daily [Active]; furosemide 20 mg Oral tab 1 tab daily [Active]; memantine 10 mg Oral tab 1 tab every morning [Active]; [place] 7.5-325 mg Oral tab 1 tab TID [Active]; PreserVision AREDS oral [Active]; lisinopril 10 mg Oral tab 1 tab once daily [Active]; tizanidine 4 mg Oral tab 1 tabs daily [Active]; tamsulosin 0.4 mg Oral capsule 1 cap daily [Active]; risperadone 0.5 1 tab twice a day [Active]; levofloxacin 500 mg Oral tab 1 tab daily [Active]; famotidine 20 mg Oral tab 1 tab daily [Active]; citalopram 20 mg tab 1 tab once daily [Active]; alprazolam 2 mg Oral tab 1 tab nightly [Active]; alendronate 70 mg Oral tab 1 tab every week [Active]; - PMHx: 16:17 Anxiety; Hepatitis; Chronic pain; Osteoporosis; Pancreatitis; Diabetes - NIDDM; bp Hypertension; CHF; - PSHx: 16:17 Total abdominal hysterectomy; Cholecystectomy; hip; bp - Immunization history:: Adult Immunizations up to date. - Social history:: Smoking status: Patient denies any tobacco usage or history of. ROS: 16:41 Constitutional: Negative for fever, chills, and weight loss, Eyes: Negative for injury, sb4 pain, redness, and discharge, ENT: Negative for injury, pain, and discharge, Cardiovascular: Negative for chest pain, palpitations, and edema, Back: Negative for injury and pain, MS/Extremity: Negative for injury and deformity, Skin: Negative for injury, rash, and discoloration, Neuro: Negative for headache, weakness, numbness, tingling, and seizure. 16:41 Respiratory: Positive for shortness of breath, Negative for cough, dyspnea on exertion, sputum production, wheezing. 16:41 Abdomen/GI: Positive for abdominal pain, of the left lower quadrant, Negative for nausea, vomiting, and diarrhea. 16:41 All other systems are negative. Exam: 16:41 Constitutional: This is a well developed, well nourished patient who is awake, alert, sb4 and in no acute distress. Head/Face: Normocephalic, atraumatic. Eyes: Extra-ocular motions intact. Periorbital areas with no swelling, redness, or edema. ENT: Mucous membranes moist. Cardiovascular: Regular rate and rhythm with a normal S1 and S2. Respiratory: Lungs have equal breath sounds bilaterally, clear to auscultation and percussion. No rales, rhonchi or wheezes noted. No increased work of breathing, no retractions or nasal flaring. Abdomen/GI: Soft, non-tender, no distension. Skin: Warm, dry with normal turgor. Normal color with no rashes, no lesions, and no evidence of cellulitis. MS/ Extremity: Pulses equal, no cyanosis. Neurovascular intact. Full, normal range of motion. 16:41 : a rhodes is noted. Vital Signs: 16:15 BP 150 / 87; Pulse 90; Resp 16; Temp 98; Pulse Ox 97% ; bp 17:13 BP 133 / 77; Pulse 91; Resp 16; Pulse Ox 95% ; bp 18:30 BP 154 / 88; Pulse 92; Resp 16; Pulse Ox 97% ; bp [place] Coma Score: 19:32 Eye Response: spontaneous(4). Motor Response: obeys commands(6). Verbal Response: rv oriented(5). Total: 15. MDM: 16:05 Patient medically screened. sb4 16:41 Differential Diagnosis diverticulitis, chronic pain syndrome, nonspecific abdominal sb4 pain, pneumonia, covid, flu, bronchitis, pancreatitis. 19:00 Data reviewed: vital signs, nurses notes, lab test result(s), radiologic studies, and sb4 as a result, I will discharge patient. Consideration of Admission/Observation Escalation of care including admission/observation considered. Historians other than the Patient: Daughter/Son: daughter. Care significantly affected by the following chronic conditions: Diabetes. 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 Special discussion: Based on the patient's Hx, exam, and Dx evaluation, there is no indication for emergent surgery or inpatient Tx. It is understood by the patient/guardian that if the Sx's persist or worsen they need to return immediately for re-evaluation. I discussed with the patient their frequent requests for pain medications. Instructions have been given, that in the best interests of the patient, further pain Rx's must come from the patient's PCP or a banner painter. 04/23 16:14 Order name: SARS RAPID; Complete Time: 16:51 sb4 04/23 16:14 Order name: Flu; Complete Time: 16:55 sb4 04/23 16:14 Order name: Basic Metabolic Panel; Complete Time: 16:55 sb4 04/23 16:14 Order name: CBC with Diff; Complete Time: 16:45 sb4 04/23 16:14 Order name: Troponin HS; Complete Time: 16:55 sb4 04/23 16:14 Order name: Lipase; Complete Time: 16:55 sb4 04/23 16:06 Order name: Chest Single View XRAY; Complete Time: 17:09 sb4 04/23 17:57 Order name: Abdomen ; Complete Time: 18:54 EDMS 04/23 16:14 Order name: IV Saline Lock; Complete Time: 16:32 sb4 Administered Medications: 16:32 Drug: Ativan IVP 0.5 mg Route: IVP; Site: right forearm; bp 17:13 Follow up: Response: No adverse reaction bp 17:00 Drug: NS 0.9% IV 1000 ml Route: IV; Rate: 1 bolus; Site: right forearm; bp 17:54 Drug: morphine IVP or IV 4 mg Route: IVP; Infused Over: 4 mins; Site: right forearm; bp 17:56 Follow up: Response: No adverse reaction bp 17:56 Drug: Ondansetron IVP 4 mg Route: IVP; Site: right forearm; bp 17:57 Follow up: Response: No adverse reaction bp 19:32 Drug: fentaNYL (PF) IM 50 mcg Route: IM; Site: right deltoid; rv 19:32 Follow up: Response: Medication administered at discharge. rv Disposition: 04/24 07:53 Co-signature as Attending Physician, Reji Carson MD I agree with the assessment and kdr plan of care. Disposition Summary: 04/23/23 19:01 Discharge Ordered Location: Home sb4 Problem: an ongoing problem sb4 Symptoms: have improved sb4 Condition: Stable sb4 Diagnosis - Lower abdominal pain, unspecified sb4 Followup: sb4 - With: Private Physician - When: As needed - Reason: Recheck today's complaints, Continuance of care, Re-evaluation by your physician Discharge Instructions: - Discharge Summary Sheet sb4 - Abdominal Pain, Adult, [id number] sb4 Forms: - Medication Reconciliation Form sb4 - Thank You Letter sb4 - Antibiotic Education sb4 - Prescription Opioid Use sb4 - Patient Portal Instructions sb4 - Leadership Thank You Letter sb4 Signatures: Dispatcher [employer] EDReji Frost MD MD kdr Viral Painter, RN RN bp Manuel Zelaya, RN RN rv Krystyna Collier PA-C PA-C sb4 Corrections: (The following items were deleted from the chart) 04/23 17:57 17:15 Abdomen Pelvis W Con+CT.RAD.BRZ ordered. EDMS EDMS
[2023-04-23] MEDS ORDERED: FENTANYL CITR 100 MCG/2 ML ONE ×2 (19:27→19:37)
[2023-04-23 19:40] VITALS: TEMP 98
[2023-04-23 19:42] VITALS: BP 154/88; O2SAT 97
== END 2023-04-23 19:33 | disposition home or self-care (01) ==
LOC: ER 16:03
DX: R10.32 Left lower quadrant pain (principal); R06.02 Shortness of breath; E11.9 Type 2 diabetes mellitus without complications; I10 Essential (primary) hypertension; I50.9 Heart failure, unspecified; Z20.822 Contact with and (suspected) exposure to COVID-19
CPT/HCPCS: 85025; 80048; 36415; 84484; 83690; 87804 ×2; 74176; 71045; 96375; 96372; 96374; 99284; 87811; Q0162; J3010 ×2; J2405